=== PATIENT | female | born 1965 | race Caucasian/White ===

== ENCOUNTER 2021-11-24 10:13 | Inpatient (IN) | payer OTHER, SELFPAY ==
[2021-11-24] VITALS (8 sets, daily range): BP systolic 84–143; BP diastolic 62–94; PULSE 66–132; RESP 16–20; TEMP 36.2–36.9; O2SAT 90–100; BMI 38.3; BMI 41.3
--- NOTE | 2021-11-24 | ECG_ITS ---
Test Reason : tachycardia Blood Pressure : / mmHG Vent. Rate : 131 BPM Atrial Rate : 262 BPM P-R Int : 000 ms QRS Dur : 148 ms QT Int : 394 ms P-R-T Axes : 084 -18 -77 degrees QTc Int : 581 ms Atrial flutter with 2:1 A-V conduction Non-specific intra-ventricular conduction block Inferior infarct , age undetermined Abnormal ECG No previous ECGs available Referred By: Generic ED Physician Electronically Signed By:Jordan Orozco
--- NOTE | ~2021-11-24 | XR_ITS ---
EXAMINATION: XR CHEST CLINICAL INFORMATION: Palpitations. COMPARISON: None TECHNIQUE: Frontal view of the chest was obtained. FINDINGS: No significant abnormality is noted involving the heart, lungs, mediastinum, bony thorax or soft tissues. XR/XR chest 1V IMPRESSION: No acute cardiopulmonary process.
--- NOTE | 2021-11-24 10:43 | ED_ITS ---
HPI - Back Pain/Injury General Chief Complaint: Back Pain/Injury Stated Complaint: spine pain Time Seen by Provider: 11/24/21 10:40 Source: patient Mode of arrival: ambulatory Limitations: no limitations History of Present Illness MD elicited complaint: back pain Pertinent past history: prior back pain and back surgery Onset (ago): month(s) Timing: progressively worsening Severity: severe Similar Symptoms Previously: Yes Quality: aching Location: lumbar spine Radiation: right upper leg Exacerbating factors: movement and walking Relieving factors: immobilization and other (was on oxycodone 10mg TID for years missed appointment cut off from office at that point since July) Associated symptoms: other (denies any b/b incontinence, new injuries, trauma, falls, saddle anesthesia, was told 2 weeks ago by visiting RN she had irregular HR but never went to doctor) Treatments prior to arrival: other (takes non narcotic Rx from her doctor) Work related injury: No Related Data Allergies Allergy/AdvReac Type Severity Reaction Status Date / Time No Known Allergies Allergy Unverified 04/12/20 14:55 Review of Systems Review of Systems: Constitutional : No Weight loss, No Fever, No Chills, ENT/Mouth : No Hearing loss, No Ear Pain, No Nasal Congestion, No Sinus Pain, No Hoarseness, No sore throat, No Rhinorrhea, No Swallowing Difficulty Cardiovascular : No Chest Pain, No SOB, pos palpitations Respiratory : No Cough, No Dyspnea Gastrointestinal : No Nausea, No Vomiting, No Diarrhea, No abdominal Pain, No Hematochezia, No Melena Genitourinary : No Dysuria, No Urinary Frequency, No Hematuria, No Urinary Incontinence, Musculoskeletal : positive back pain Skin : No Skin Lesions, No rash Neuro : No Weakness, No Numbness, No Paresthesias, no loss of bowel or bladder incontinence, no saddle anesthesia All other systems reviewed and are negative [facility] Past Medical History Attestation statement: The following information was validated with the patient. Medical History (Updated 11/24/21 @ 13:05 by Delfina Handley DO) Arthritis COPD (chronic obstructive pulmonary disease) Disc disorder of cervical region Disc disorder of lumbar region DVT of axillary vein, acute Scoliosis Surgical History (Updated 11/24/21 @ 11:37 by Delfina Handley DO) Previous back surgery Social History Social History (Updated 11/24/21 @ 11:37 by Delfina Handley DO) Patient Tobacco Use Status: Former Tobacco user Advance Directives: Yes Advance Directives Information Provided: Yes Advance Directives on File: No Patient : No Physical Exam Vital Signs: Vital Signs: Last Vital Signs Temp 97.4 F 11/24/21 10:21 Pulse 97 11/24/21 11:42 Resp 18 11/24/21 11:42 BP 109/63 11/24/21 11:42 Pulse Ox 98 11/24/21 11:42 BMI result Body Mass Index 38.3 Appearance: Alert. Oriented X3. No acute distress. Eyes: Pupils equal, round and reactive to light. ENT: Pharynx normal. Neck: Normal inspection. Neck supple. CVS: tachycardic regular heart rate and rhythm. Pulses normal. Respiratory: No respiratory distress. Breath sounds decreased Abdomen: Soft and nontender. Back: ttp alonger lower lumbar area Skin: Skin warm and dry. Normal skin color. Normal skin turgor. Extremities: No lower extremity edema. No calf ttp hyperpigmentation of legs Neuro: Oriented X 3. No motor deficit. No sensory deficit. SILT inner thigh Course Course Course Narrative: repeat IV dilt dilt gtt ordered HR still 110-120s, back pain resolved with 1 PO morphine will admit for further rate control and workup of aflutter MDM - Back Pain/Injury MDM Narrative Medical decision making narrative: 55 yo female with hx of chronic back pain, DVT on coumadin, HLD, asthma comes in with c/o chronic low back pain which is not changed from her prior - no new injuries just had MRI on Weekend - worsening disc disease but no CE or cord compression. She has no b/b incontinence or saddle anesthesia. She will be treated with PO morphine. She also comes in with aflutter which she does not have a history of she is already on coumadin for DVT INR 1.9 doubt PE. She will need rate control at this time denies CP/SOB suspect she has been in it for weeks given reports of visiting RN telling her she had rapid HR and irregular pulse 2 weeks ago. Lab Data Result diagrams: 11/24/21 11:01 11/24/21 11:01 Labs: Lab Results 11/24/21 11/24/21 11/24/21 Range/Units 11:01 11:01 11:01 WBC 6.4 (4.8-10.8) X10*3/uL RBC 4.78 (4.20-5.50) X10*6/uL Hgb 14.3 (12.0-16.0) g/dl Hct 44.5 (37.0-47.0) % MCV 93.1 (80.0-98.0) fL MCH 29.9 (27.0-33.0) pg MCHC 32.1 (31.0-35.0) g/dl RDW 14.0 (11.0-16.0) % Plt Count 235 (160-400) X10*3/uL MPV 9.7 (9.4-12.3) fL Immature Gran % (Auto) 0.2 (0.0-0.4) % Neut % (Auto) 47.1 (45-73) % Lymph % (Auto) 40.3 H (20-40) % Amelia % (Auto) 6.8 (2-11) % Eos % (Auto) 5.0 H (0-4) % Baso % (Auto) 0.6 (0-2) % Lymph # (Auto) 2.6 (1.2-4.9) X10*3/uL Amelia # (Auto) 0.4 (0.1-1.2) X10*3/uL Eos # (Auto) 0.3 (0.0-0.4) X10*3/uL Baso # (Auto) 0.0 (0.0-0.2) X10*3/uL Abs Immat Gran (auto) 0.01 (0.00-0.03) X10*3/uL Absolute Neuts (auto) 3.0 (2.0-8.3) x10*3/uL Absolute Nucleated RBC 0.000 (0.0-0.012) X10*3/uL Nucleated RBC % (auto) 0.0 (0.0-0.2) /100WBC PT 21.9 H (9.9-13.0) SEC INR 1.9 H (0.9-1.1) APTT 46.3 H (24.1-38.0) SEC D-Dimer High Sensitivty 190 NG/ML Sodium 140 (135-145) mmol/L Potassium 4.5 (3.3-5.1) mmol/L Chloride 106 (96-108) mmol/L Carbon Dioxide 25 (22-29) mmol/L Anion Gap 14 (12-20) BUN 10 (9-16) mg/dL Creatinine 0.68 (0.5-1.4) mg/dL Estim Creat Clear Calc 102.8 Estimated GFR > 60 Random Glucose 82 (60-115) mg/dL Calcium 9.7 (8.4-10.2) mg/dL Magnesium 2.1 (1.6-2.6) mg/dL Total Bilirubin 0.6 (0.0-1.0) mg/dL Direct Bilirubin 0.3 (0.0-0.5) mg/dL AST 23 (5-31) U/L ALT 15 (0-31) U/L Alkaline Phosphatase 92 (39-117) U/L Total Creatine Kinase 74 (26-140) U/L Troponin I High Sens (<3.5-17.0) ng/L B-Natriuretic Peptide (<100) pg/mL Total Protein 7.8 (6.5-8.0) g/dL Albumin 4.0 (3.5-5.0) g/dL Lipase 50 (8-78) U/L TSH 0.77 (0.32-4.0) uIU/mL Ethyl Alcohol mg/dL COVID-19 (REMA) (Negative) COVID-19 Clin Com 11/24/21 11/24/21 11/24/21 Range/Units 11:01 11:01 11:01 WBC (4.8-10.8) X10*3/uL RBC (4.20-5.50) X10*6/uL Hgb (12.0-16.0) g/dl Hct (37.0-47.0) % MCV (80.0-98.0) fL MCH (27.0-33.0) pg MCHC (31.0-35.0) g/dl RDW (11.0-16.0) % Plt Count (160-400) X10*3/uL MPV (9.4-12.3) fL Immature Gran % (Auto) (0.0-0.4) % Neut % (Auto) (45-73) % Lymph % (Auto) (20-40) % Amelia % (Auto) (2-11) % Eos % (Auto) (0-4) % Baso % (Auto) (0-2) % Lymph # (Auto) (1.2-4.9) X10*3/uL Amelia # (Auto) (0.1-1.2) X10*3/uL Eos # (Auto) (0.0-0.4) X10*3/uL Baso # (Auto) (0.0-0.2) X10*3/uL Abs Immat Gran (auto) (0.00-0.03) X10*3/uL Absolute Neuts (auto) (2.0-8.3) x10*3/uL Absolute Nucleated RBC (0.0-0.012) X10*3/uL Nucleated RBC % (auto) (0.0-0.2) /100WBC PT (9.9-13.0) SEC INR (0.9-1.1) APTT (24.1-38.0) SEC D-Dimer High Sensitivty NG/ML Sodium (135-145) mmol/L Potassium (3.3-5.1) mmol/L Chloride (96-108) mmol/L Carbon Dioxide (22-29) mmol/L Anion Gap (12-20) BUN (9-16) mg/dL Creatinine (0.5-1.4) mg/dL Estim Creat Clear Calc Estimated GFR Random Glucose (60-115) mg/dL Calcium (8.4-10.2) mg/dL Magnesium (1.6-2.6) mg/dL Total Bilirubin (0.0-1.0) mg/dL Direct Bilirubin (0.0-0.5) mg/dL AST (5-31) U/L ALT (0-31) U/L Alkaline Phosphatase (39-117) U/L Total Creatine Kinase (26-140) U/L Troponin I High Sens 4.3 (<3.5-17.0) ng/L B-Natriuretic Peptide 252 H (<100) pg/mL Total Protein (6.5-8.0) g/dL Albumin (3.5-5.0) g/dL Lipase (8-78) U/L TSH (0.32-4.0) uIU/mL Ethyl Alcohol < 10 mg/dL COVID-19 (REMA) Negative (Negative) COVID-19 Clin Com See Note ECG Data Attestation: I personally reviewed and interpreted this ECG as follows: ECG interpretation date: 11/24/21 ECG interpretation time: 10:51 Interpretation: Rate: 130 Rhythm: flutter [place]: normal Normal QRS complex. ST T wave : nonspecific no CLAUDINE qTC: prolonged prior studies: none The study has been interpreted contemporaneously by me. Critical Care Time Critical Care Time Critical Care Time: Yes Total Critical Care Time: 35 Attestation: repeat IV bolus of diltiazem x 2, IV diltiazem drip for rate control, admission to hospital I attest to this time spent taking care of the patient Discharge Plan Discharge Clinical Impression: Atrial flutter, Chronic back pain Patient Disposition: Admitted As Inpatient
[2021-11-24] MEDS: dilTIAZem HCL 50 MG/10 ML VIAL 10 MG IVPUSH ×2 (11:04→11:17)
[2021-11-24 11:06] LABS: MANUAL DIFF FLAG NO
[2021-11-24 11:07] LABS: Basophils Percent Auto 0.6 % (0-2); Eosinophils Absolute Auto 0.3 X10*3/uL (0.0-0.4); Hematocrit 44.5 % (37.0-47.0); Hemoglobin 14.3 g/dl (12.0-16.0); Imm Gran Abs Auto 0.01 X10*3/uL (0.00-0.03); Imm Gran Pct Auto 0.2 % (0.0-0.4); Lymphocytes Absolute Auto 2.6 X10*3/uL (1.2-4.9); Lymphocytes Percent Auto 40.3 % (20-40); Mean Corpuscular HGB Conc 32.1 g/dl (31.0-35.0); Mean Corpuscular Hemoglobin 29.9 pg (27.0-33.0); Mean Corpuscular Volume 93.1 fL (80.0-98.0); Mean Platelet Volume 9.7 fL (9.4-12.3); Monocytes Absolute Auto 0.4 X10*3/uL (0.1-1.2); Monocytes Percent Auto 6.8 % (2-11); Neutrophils Percent Auto 47.1 % (45-73); Platelet Count 235 X10*3/uL (160-400); Red Blood Count 4.78 X10*6/uL (4.20-5.50); White Blood Count 6.4 X10*3/uL (4.8-10.8)
[2021-11-24] MEDS: Morphine Sulfate Immed Release 15 MG TABLET PO (11:16)
[2021-11-24 11:21] LABS: INTERNATIONAL NORM RATIO 1.9 (0.9-1.1); Prothrombin Time 21.9 SEC (9.9-13.0)
[2021-11-24 11:23] LABS: D Dimer High Sensitivity 190 NG/ML
[2021-11-24 11:24] LABS: Alanine Aminotransferase 15 U/L (0-31); Alkaline Phosphatase 92 U/L (39-117); Anion Gap 14 (12-20); Aspartate Amino Transferase 23 U/L (5-31); Bilirubin Direct 0.3 mg/dL (0.0-0.5); Bilirubin Total 0.6 mg/dL (0.0-1.0); Blood Urea Nitrogen 10 mg/dL (9-16); Calcium 9.7 mg/dL (8.4-10.2); Carbon Dioxide 25 mmol/L (22-29); Chloride 106 mmol/L (96-108); Creatinine Clr Calc Pharmacy 102.8; Estimated Glomerular Filt Rate > 60; Glucose Random 82 mg/dL (60-115); Lipase 50 U/L (8-78); Magnesium 2.1 mg/dL (1.6-2.6); Partial Thromboplastin Time 46.3 SEC (24.1-38.0); Potassium 4.5 mmol/L (3.3-5.1); Sodium 140 mmol/L (135-145); Total Protein 7.8 g/dL (6.5-8.0)
[2021-11-24 11:29] LABS: B Type Natriuretic Peptide 252 pg/mL (<100); Troponin-I High Sensitivity 4.3 ng/L (<3.5-17.0)
--- NOTE | 2021-11-24 11:42 | PC.NURSE ---
patient heart rate has decreased at this time, but noted to still be in a flutter rhythm. patient in no obvious distress at this time
[2021-11-24 11:44] LABS: TSH reflex Free T4 0.77 uIU/mL (0.32-4.0)
[2021-11-24 11:45] LABS: Ethanol < 10 mg/dL
[2021-11-24 11:47] LABS: COVID-19 Test Negative (Negative); IDNOW Serial# 16C4AD1C
[2021-11-24] MEDS: dilTIAZem HCL 125 MG in 0.9 % Sodium Chloride 100 ML 10 MG IVCONT (12:24)
--- NOTE | 2021-11-24 13:11 | P.HPHOSP_ITS ---
History of Present Illness Date of Service: 11/24/21 Chief Complaint: Palpitation 55 yo female with hx of chronic back pain, Diabetes, DVT on coumadin, HLD, asthma/COPD presents with palpitations, she relates that that she gets palpitations of and on and can last days of even weeks and she has not had any about 2 weeks or so. She had spontaneous onset of palpitations today that is constatn.. no associated chest pain, sob or dizzinesss. She is found to be in Aflutter with HR around 130 and is given cardizem IV. Of note she has her usual back rivera that is not any worse - no new injuries, she just had an MRI on and was noted for worsening disc disease but no cord compression or other acute chanages. She has no urinary or stool incontinence or saddle anesthesia. Got PO in ED with good relief. She is being admitted for management of AFIB with RVR. Review of Systems Review of Systems: Gen: no fever Resp: no sob, no cough CV: no chest, no HASTINGS, no leg edema GI: No n/v, no abd pain Neuro: No confusion Back pain: Chronic Yes all other systems are reviewed and are negative [facility] Medical History (Updated 11/24/21 @ 13:51 by Jeffery Bell MD) Arthritis COPD (chronic obstructive pulmonary disease) Diabetes Disc disorder of cervical region Disc disorder of lumbar region DVT of axillary vein, acute HLD (hyperlipidemia) HTN (hypertension) Scoliosis Family History (Updated 11/24/21 @ 13:33 by Jeffery Bell MD) Father Stroke Other Diabetes Surgical History Previous back surgery Social History Household Members: Children Household Members Other:: daughter Housing: Condominium Do you presently have visiting nurse or other home services: Yes ([employer] services) Patient Tobacco Use Status: Current everyday Tobacco user Tobacco use type: Cigarette Cigarette Packs Per Day: 1 Cigarettes Per Day: 20.0 Use of substances other than those prescribed or required for medical reasons: No Currently Displaying Signs/Symptoms of Drug Intoxication Withdrawal: No Do you feel safe in your current relationship?: No Current Relationship Advance Directives: Yes Advance Directives Information Provided: Yes Advance Directives on File: No Advance Directives Date on File: 11/24/21 Do you have thoughts of harming others: None Do you have a plan to hurt others: No Plan Recently lost weight without trying: Yes How much weight loss: 34pounds or more Eating poorly because of decreased appetite: No Nutrition screen score: 6 Nutrition Risks: No Nutritional Risk Patient : No : No Poor oral hygiene: Yes Meds Allergies Allergy/AdvReac Type Severity Reaction Status Date / Time No Known Allergies Allergy Unverified 04/12/20 14:55 Active Medications: Current Medications Diltiazem HCl 125 mg/ Sodium (Chloride) 125 mls @ 0 mls/hr IVCONT .Q0M MONSERRAT; Protocol Last Admin: 11/24/21 12:24 Dose: 10 mg/hr, 10 mls/hr Documented by: Pharmacy Consult (Consult Rx Perform Med Rec) 1 each MISCELLANE ONCE PRN PRN Reason: Consult order Home Medications Medication Instructions Recorded Confirmed Last Taken Type albuterol sulfate 90 mcg/actuation 2 puff INHALATION Q4-6H PRN 11/24/21 11/24/21 Unknown History aerosol inhaler colchicine 0.6 mg tablet 0.6 mg PO DAILY 11/24/21 11/24/21 Unknown History cyclobenzaprine 10 mg tablet 10 mg PO TID PRN 11/24/21 11/24/21 Unknown History duloxetine 40 mg capsule,delayed 40 mg PO DAILY 11/24/21 11/24/21 11/24/21 History release sprinkle duloxetine 60 mg capsule,delayed 60 mg PO DAILY 11/24/21 11/24/21 11/24/21 History release gabapentin 300 mg capsule 300 mg PO TID 11/24/21 11/24/21 11/24/21 History lamotrigine 100 mg tablet 250 mg PO BEDTIME 11/24/21 11/24/21 11/23/21 History loratadine 10 mg tablet 10 mg PO DAILY 11/24/21 11/24/21 Unknown History metformin 500 mg tablet 1,000 mg PO BID 11/24/21 11/24/21 Unknown History methenamine hippurate 1 gram tablet 1 g PO BID 11/24/21 11/24/21 11/24/21 History nitrofurantoin 1 cap PO BID 11/24/21 11/24/21 11/24/21 History monohydrate/macrocrystals 100 mg capsule penicillin V potassium 250 mg 250 mg PO BID 11/24/21 11/24/21 11/24/21 History tablet propranolol 20 mg tablet 20 mg PO BID 11/24/21 11/24/21 Unknown History ropinirole 0.5 mg tablet 0.5 mg PO BID 11/24/21 11/24/21 11/24/21 History rosuvastatin 10 mg tablet 10 mg PO DAILY 11/24/21 11/24/21 Unknown History warfarin 5 mg tablet 5 mg PO DAILY 11/24/21 11/24/21 Unknown History Physical Exam Vital Signs and Narrative: Vital Signs: Last Vital Signs Temp 97.4 F 11/24/21 10:21 Pulse 97 11/24/21 11:42 Resp 18 11/24/21 11:42 BP 109/63 11/24/21 11:42 Pulse Ox 98 11/24/21 11:42 BMI result Body Mass Index 38.3 Const: Other: Constitutional: Alert, in no distress, overweight. Mental Status: Oriented to person, place and time. Eyes: Pupils are equal, round and reactive to light. Ear, Nose and Throat: Oropharynx clear, mucous membranes moist. Ears and nose without eformities. Trachea midline. Respiratory: Clear to auscultation. No wheezing, rales or rhonchi. Cardiovascular: S1 S2 iregular irregular. No murmurs, rubs or gallops. rythm strip c/w Afluter Gastrointestinal: Abdomen soft, non-tender, non-distended. Normal bowel sounds.? Neurologic: Cranial nerves II-XII grossly intact. No focal neurological deficits. Moves all extremities spontaneously.? No numbness Skin: No rashes or lesions.?bilateral chronic stais dermatitis of both legs Musculoskeletal: No cyanosis or clubbing. Psychiatric: Normal mood and affect? Results Labs CBC and Chem 7: 11/24/21 11:01 11/24/21 11:01 Imaging Radiologist's Impressions: Impressions Chest X-Ray 11/24/21 11:35 IMPRESSION: No acute cardiopulmonary process. Assessment and Plan (1) Atrial flutter: Status: Acute (2) HTN (hypertension): Status: Acute (3) HLD (hyperlipidemia): Status: Acute (4) Diabetes: Status: Acute Plan 55 yo female with hx of chronic back pain, DVT on coumadin, HLD, asthma here with Aflutter with RVR, presumed new AFlutter with RVR--Start cardiazem IV, add oral metorprolol 25 Q6 as well. She is already anticoagulated with coumadin. Get echo in the morning and get advise from cardiology Chronic Back pain--Oxycodone PRN HLD--statin HTN--Metoprolol Diabetes--Metformin and SSI, diabetic diet DVT prophylaxis--coumadin Quality Stroke Does the patient have a stroke diagnosis?: No VTE Prior VTE?: Yes VTE Risk Level:: Medical - moderate - high VTE Device Contraindication: Treatment Not Indicated VTE Drug Contraindication: N/A - Med Ordered
[2021-11-24] MEDS: Lidocaine 4 % Patch ADH..PATCH 1 PATCH TRANSDERMA (13:43)
[2021-11-24] MEDS: diazePAM 2 MG TABLET 5 MG PO (13:43)
--- NOTE | 2021-11-24 14:31 | PC.NURSE ---
Addendum entered by Christal Adam 11/24/21 22:56: Pt HR running low's 80, high 60's Dr. Orosco made aware, Dr. Orosco order to titrate down Cardizem drip and if HR remains stable to stop drip Addendum entered by Christal Adam 11/24/21 14:59: pt is alert and oriented. on continuos cardiac monitoring. pt stated that she continuos to have back pain, repositioned in bed for better comfort. pt HR fluctuating, from 100-130's, provider made aware. pt currently running diltiazem drip at 12.5mg/hr Original Note: report received from [facility]
--- NOTE | 2021-11-24 14:45 | PHA.MEDREC ---
MED REC COMPLETE, NO ISSUES Pharmacy Consult ? Medication Reconciliation Pharmacy has completed the medication reconciliation.
[2021-11-24 17:06] LABS: Glucose, Whole Blood 130 mg/dL (60-115)
--- NOTE | 2021-11-24 18:14 | PC.NURSE ---
patient assisted to bathroom at this time. patient requesting to have IV in left AC pulled due to discomfort. IV discontinued, and patient had significant amount of bleeding from site. pressure applied and bleeding controlled after several mins. patient's linens and gown changed at this time. no apparent distress, denies any further needs
[2021-11-24] MEDS: Metoprolol Tartrate 25 MG TABLET PO ×2 (18:57→21:16)
[2021-11-24] MEDS: Gabapentin 300 MG CAPSULE PO (21:15)
[2021-11-24] MEDS: Penicillin V Potassium 250 MG TABLET PO (21:15)
[2021-11-24] MEDS: metFORMIN HCl 1,000 MG TABLET 1000 MG PO (21:15)
[2021-11-24] MEDS: Nitrofurantoin Monohyd/M-Cryst 100 MG CAPSULE PO (21:15)
[2021-11-24] MEDS: rOPINIRole HCL 0.5 MG TABLET PO (21:15)
[2021-11-24] MEDS: Atorvastatin Calcium 10 MG TABLET PO (21:15)
[2021-11-24] MEDS: oxyCODONE HCl Immed Release 5 MG TABLET PO (21:16)
[2021-11-24] MEDS: lamoTRIgine 25 MG TABLET 250 MG PO (22:43)
[2021-11-24] MEDS: 0.9 % Sodium Chloride Flush 3 ML SYRINGE IVFLUSH (23:26)
[2021-11-25] VITALS (11 sets, daily range): BP systolic 110–137; BP diastolic 62–93; PULSE 71–105; RESP 16–20; TEMP 36.1–36.7; O2SAT 89–95
[2021-11-25] MEDS: dilTIAZem HCL 125 MG in 0.9 % Sodium Chloride 100 ML 10 MG IVCONT (00:07)
--- NOTE | 2021-11-25 00:09 | PC.NURSE ---
Cardizem drip paused at 23:24 patient HR was in the 60s and bp 84/62. Drip was running at 11mg/hr while in ED overflow. Overnight hospitalist notified. Cardizem restarted at 10ml/hr at 00:07am, patient at 120-130s at rest. BP came up to 116/67.
[2021-11-25] MEDS: oxyCODONE HCl Immed Release 5 MG TABLET PO ×3 (04:23→21:14)
[2021-11-25 07:03] LABS: INTERNATIONAL NORM RATIO 1.9 (0.9-1.1); Prothrombin Time 22.1 SEC (9.9-13.0)
[2021-11-25 07:51] LABS: Glucose, Whole Blood 90 mg/dL (60-115)
[2021-11-25] MEDS: Colchicine 0.6 MG TABLET PO (08:13)
[2021-11-25] MEDS: Gabapentin 300 MG CAPSULE PO ×3 (08:13→21:13)
[2021-11-25] MEDS: DULoxetine HCl 20 MG CAPSULE.DR 40 MG PO (08:13)
[2021-11-25] MEDS: Penicillin V Potassium 250 MG TABLET PO ×2 (08:13→21:14)
[2021-11-25] MEDS: metFORMIN HCl 1,000 MG TABLET 1000 MG PO ×2 (08:13→21:13)
[2021-11-25] MEDS: DULoxetine HCl 60 MG CAPSULE.DR PO (08:13)
[2021-11-25] MEDS: rOPINIRole HCL 0.5 MG TABLET PO ×2 (08:13→21:14)
[2021-11-25] MEDS: 0.9 % Sodium Chloride Flush 3 ML SYRINGE IVFLUSH ×3 (08:13→21:16)
[2021-11-25] MEDS: Nitrofurantoin Monohyd/M-Cryst 100 MG CAPSULE PO ×2 (08:14→21:13)
[2021-11-25] MEDS: Loratadine 10 MG TABLET PO (08:14)
[2021-11-25] MEDS: Metoprolol Tartrate 25 MG TABLET PO ×4 (08:14→21:15)
[2021-11-25] MEDS: Acetaminophen 325 MG TABLET 650 MG PO (08:22)
[2021-11-25] MEDS: Cyclobenzaprine HCl 10 MG TABLET PO (08:22)
--- NOTE | 2021-11-25 10:24 | P.PNIM_ITS ---
Subjective Subjective Date of Service: 11/25/21 Interval History: Seen in follow-up for atrial flutter with RVR. Interval history; patient's heart rate remained high with IV Cardizem still going and been uptitrated Review of Systems No palpitation, no shortness of breath, no chest pain. Physical Exam Vital Signs: Vital Signs: Last Vital Signs Temp 97.7 F 11/25/21 07:05 Pulse 78 11/25/21 09:37 Resp 20 11/25/21 07:05 BP 125/80 11/25/21 07:05 Pulse Ox 91 L 11/25/21 07:05 BMI result Body Mass Index 41.3 Const: Other: General: AO X 3, no acute distress Resp: CTA bilateral CVS: S1,S2, irregularly irregular GI: +BS, NT, no distention Skin: No rash Neuro: motor grossly intact Psych: appropriate affect Objective Data Active Medications Acetaminophen (Acetaminophen 325 Mg Tablet) 650 mg PO Q6H PRN PRN Reason: Pain, Mild (Pain Scale 1-3) Last Admin: 11/25/21 08:22 Dose: 650 mg Documented by: CLAUDIO Albuterol Sulfate (Albuterol Sulfate 90 Mcg 8 Gm Inhaler) 2 puff INHALE Q4H PRN PRN Reason: Respiratory Distress Atorvastatin Calcium (Atorvastatin Calcium 10 Mg Tablet) 10 mg PO BEDTIME [facility] Last Admin: 11/24/21 21:15 Dose: 10 mg Documented by: CARMELA-BONYICL Colchicine (Colchicine 0.6 Mg Tablet) 0.6 mg PO DAILY [facility] Last Admin: 11/25/21 08:13 Dose: 0.6 mg Documented by: CLAUDIO Cyclobenzaprine HCl (Cyclobenzaprine Hcl 10 Mg Tablet) 10 mg PO TID PRN PRN Reason: Muscle Spasm Last Admin: 11/25/21 08:22 Dose: 10 mg Documented by: CLAUDIO Duloxetine HCl (Duloxetine Hcl 60 Mg Capsule.) 60 mg PO DAILY [facility] Last Admin: 11/25/21 08:13 Dose: 60 mg Documented by: CLAUDIO Duloxetine HCl (Duloxetine Hcl 20 Mg Capsule.) 40 mg PO DAILY [facility] Last Admin: 11/25/21 08:13 Dose: 40 mg Documented by: CLAUDIO Gabapentin (Gabapentin 300 Mg Capsule) 300 mg PO TID [facility] Last Admin: 11/25/21 08:13 Dose: 300 mg Documented by: CLAUDIO Diltiazem HCl 125 mg/ Sodium (Chloride) 125 mls @ 0 mls/hr IVCONT .Q0M [facility]; Protocol Last Titration: 11/25/21 09:37 Dose: 0 mg/hr, 0 mls/hr Documented by: CLAUDIO Insulin Human Lispro (Insulin Lispro 100 Unit/Ml 3 Ml Vial) 0 unit SUBCUT QIDACHS [facility]; Protocol Last Admin: 11/25/21 08:12 Dose: Not Given Documented by: CLAUDIO Non-Admin Reason: No Insulin Coverage Lamotrigine (Lamotrigine 25 Mg Tablet) 250 mg PO BEDTIME [facility] Last Admin: 11/24/21 22:43 Dose: 250 mg Documented by: CARMELA-ANICL Loratadine (Loratadine 10 Mg Tablet) 10 mg PO DAILY [facility] Last Admin: 11/25/21 08:14 Dose: 10 mg Documented by: CLAUDIO Metformin HCl (Metformin Hcl 1,000 Mg Tablet) 1,000 mg PO BID [facility] Last Admin: 11/25/21 08:13 Dose: 1,000 mg Documented by: CLAUDIO Metoprolol Tartrate (Metoprolol Tartrate 25 Mg Tablet) 25 mg PO QID [facility]; P rotocol Last Admin: 11/25/21 08:14 Dose: 25 mg Documented by: CLAUDIO Nitrofurantoin Macrocrystals (Nitrofurantoin Monohyd/M-Cryst 100 Mg Capsule) 100 mg PO BID [facility] Last Admin: 11/25/21 08:14 Dose: 100 mg Documented by: CLAUDIO Non-Formulary Medication (Methenamine Hippurate) 1 gm PO BID [facility] Oxycodone HCl (Oxycodone Hcl Immed Release 5 Mg Tablet) 5 mg PO Q6H PRN PRN Reason: Pain, Severe (Pain Scale 7-10) Last Admin: 11/25/21 04:23 Dose: 5 mg Documented by: JACQUI Penicillin V Potassium (Penicillin V Potassium 250 Mg Tablet) 250 mg PO BID [facility] Last Admin: 11/25/21 08:13 Dose: 250 mg Documented by: CLAUDIO Pharmacy Consult (Consult Rx Perform Med Rec) 1 each MISCELLANE ONCE PRN PRN Reason: Consult order Ropinirole HCl (Ropinirole Hcl 0.5 Mg Tablet) 0.5 mg PO BID [facility] Last Admin: 11/25/21 08:13 Dose: 0.5 mg Documented by: CLAUDIO Sodium Chloride (0.9 % Sodium Chloride Flush 3 Ml Syringe) 3 ml IVFLUSH QSHIFT [facility] Last Admin: 11/25/21 08:13 Dose: 3 ml Documented by: CLAUDIO Warfarin Sodium (Warfarin Sodium 5 Mg Tablet) 5 mg PO DAILY@1800 [facility] Labs CBC & Chem 7: 11/24/21 11:01 11/24/21 11:01 Labs: Laboratory Results - last 24 hr 11/24/21 11/24/21 11/24/21 11:01 11:01 11:01 MCV 93.1 MCH 29.9 MCHC 32.1 RDW 14.0 Plt Count 235 MPV 9.7 Immature Gran % (Auto) 0.2 Neut % (Auto) 47.1 Lymph % (Auto) 40.3 H Turner % (Auto) 6.8 Eos % (Auto) 5.0 H Baso % (Auto) 0.6 Lymph # (Auto) 2.6 Turner # (Auto) 0.4 Eos # (Auto) 0.3 Baso # (Auto) 0.0 Abs Immat Gran (auto) 0.01 Absolute Neuts (auto) 3.0 Absolute Nucleated RBC 0.000 Nucleated RBC % (auto) 0.0 PT 21.9 H INR 1.9 H APTT 46.3 H D-Dimer High Sensitivty 190 Anion Gap 14 Estim Creat Clear Calc 102.8 Estimated GFR > 60 POC Glucose Random Glucose 82 Calcium 9.7 Magnesium 2.1 Total Bilirubin 0.6 Direct Bilirubin 0.3 AST 23 ALT 15 Alkaline Phosphatase 92 Total Creatine Kinase 74 Troponin I High Sens B-Natriuretic Peptide Total Protein 7.8 Albumin 4.0 Lipase 50 TSH 0.77 Ethyl Alcohol COVID-19 (REMA) COVID-19 Clin Com 11/24/21 11/24/21 11/24/21 11:01 11:01 11:01 MCV MCH MCHC RDW Plt Count MPV Immature Gran % (Auto) Neut % (Auto) Lymph % (Auto) Turner % (Auto) Eos % (Auto) Baso % (Auto) Lymph # (Auto) Turner # (Auto) Eos # (Auto) Baso # (Auto) Abs Immat Gran (auto) Absolute Neuts (auto) Absolute Nucleated RBC Nucleated RBC % (auto) PT INR APTT D-Dimer High Sensitivty Anion Gap Estim Creat Clear Calc Estimated GFR POC Glucose Random Glucose Calcium Magnesium Total Bilirubin Direct Bilirubin AST ALT Alkaline Phosphatase Total Creatine Kinase Troponin I High Sens 4.3 B-Natriuretic Peptide 252 H Total Protein Albumin Lipase TSH Ethyl Alcohol < 10 COVID-19 (REMA) Negative COVID-19 Clin Com See Note 11/24/21 11/25/21 11/25/21 17:02 06:09 07:48 MCV MCH MCHC RDW Plt Count MPV Immature Gran % (Auto) Neut % (Auto) Lymph % (Auto) Turner % (Auto) Eos % (Auto) Baso % (Auto) Lymph # (Auto) Turner # (Auto) Eos # (Auto) Baso # (Auto) Abs Immat Gran (auto) Absolute Neuts (auto) Absolute Nucleated RBC Nucleated RBC % (auto) PT 22.1 H INR 1.9 H APTT D-Dimer High Sensitivty Anion Gap Estim Creat Clear Calc Estimated GFR POC Glucose 130 H 90 Random Glucose Calcium Magnesium Total Bilirubin Direct Bilirubin AST ALT Alkaline Phosphatase Total Creatine Kinase Troponin I High Sens B-Natriuretic Peptide Total Protein Albumin Lipase TSH Ethyl Alcohol COVID-19 (REMA) COVID-19 Clin Com Assessment and Plan (1) Diabetes: Status: Acute (2) HLD (hyperlipidemia): Status: Acute (3) HTN (hypertension): Status: Acute (4) Atrial flutter: Status: Acute (5) Chronic back pain: Status: Acute Plan 55 yo female with hx of chronic back pain, DVT on coumadin, HLD, asthma? here with Aflutter with RVR, presumed new AFlutter with RVR--heart rate remains high, continue IV Cardizem, continue metoprolol. Already on Coumadin for anticoagulation. Echocardiogram today. Cardiology to advise on further management. Give her regular diet give her regular diet given her regular diet Chronic Back pain--Oxycodone PRN HLD--statin HTN--Metoprolol Diabetes--Metformin and SSI, diabetic diet DVT prophylaxis--coumadin Need for inpatient: Management of atrial fibrillation with IV medications and further cardiac testing Quality Stroke Does the patient have a stroke diagnosis?: No VTE Prior VTE?: Yes VTE Risk Level:: Medical - moderate - high VTE Device Contraindication: Treatment Not Indicated VTE Drug Contraindication: N/A - Med Ordered
[2021-11-25 11:08] LABS: Glucose, Whole Blood 95 mg/dL (60-115)
--- NOTE | 2021-11-25 11:12 | MHC.CM.PN ---
MET WITH PT WHO HAS [facility] [employer]RU [employer] WHO DOES HER INRS AND LOCK BOX SHE IS VAX X 3 AND HAS OWN TRANSPORT HOME
--- NOTE | 2021-11-25 11:43 | MHC.CLN ---
RE: CONSULT 30# WT LOSS PT REPORTS SHE LOST 72# SINCE FEBRUARY 2021 PT REPORTED SHE GAVE UP SODA SHE NEEDED TO LOSE WT FOR UPCOMING SURGERY PLANNED DECEMBER 2021 AND INCREASED EXERCISE WT LOSS WAS INTENTIONAL AND DESIRED WITH NO SIGNIFICANT WT LOSS AT THIS TIME PT NOTED ALSO HAS GASTRIC BAND SINCE 2004 WHICH REQUIRES SMALL PORTIONS WITH MEALS
[2021-11-25 14:09] LABS: Glucose, Whole Blood 102 mg/dL (60-115)
--- NOTE | 2021-11-25 14:15 | PM.CNCAR ---
History of Present Illness History of Present Illness Date of Service: 11/25/21 Chief complaint: Aflutter with RVR Narrative: 55-year-old female who is presenting with upper back and neck pain. She was noted to have atrial flutter with heart rate of 131 beats per minute. She is denying any palpitations or symptoms. She was started on Cardizem with improvement in heart rate. At the time of interview the Cardizem was off and heart rate was in 90s. Overall denying any symptoms and wants to go home. She is a chronic smoker and has dyspnea at baseline due to underlying lung disease. She also has background of hypertension and diabetes. She has been on Coumadin therapy for previous DVT. [facility] Past Medical History Medical History (Updated 11/24/21 @ 13:51 by Jeffery Bell MD) Arthritis COPD (chronic obstructive pulmonary disease) Diabetes Disc disorder of cervical region Disc disorder of lumbar region DVT of axillary vein, acute HLD (hyperlipidemia) HTN (hypertension) Scoliosis Family History Family History (Updated 11/24/21 @ 13:33 by Jeffery Bell MD) Father Stroke Other Diabetes Surgical History Surgical History Previous back surgery Social History Social History Household Members: Children Household Members Other:: daughter Housing: Condominium Do you presently have visiting nurse or other home services: Yes ([employer]) Patient Tobacco Use Status: Current everyday Tobacco user Tobacco use type: Cigarette Cigarette Packs Per Day: 1 Cigarettes Per Day: 20.0 Use of substances other than those prescribed or required for medical reasons: No Currently Displaying Signs/Symptoms of Drug Intoxication Withdrawal: No Do you feel safe in your current relationship?: No Current Relationship Advance Directives: Yes Advance Directives Information Provided: Yes Advance Directives on File: No Advance Directives Date on File: 11/24/21 Do you have thoughts of harming others: None Do you have a plan to hurt others: No Plan Recently lost weight without trying: Yes How much weight loss: 34pounds or more Eating poorly because of decreased appetite: No Nutrition screen score: 6 Nutrition Risks: No Nutritional Risk Patient : No : No Poor oral hygiene: Yes service: No Meds Allergies Allergy/AdvReac Type Severity Reaction Status Date / Time No Known Allergies Allergy Unverified 04/12/20 14:55 Active Medications: Current Medications Acetaminophen (Acetaminophen 325 Mg Tablet) 650 mg PO Q6H PRN PRN Reason: Pain, Mild (Pain Scale 1-3) Last Admin: 11/25/21 08:22 Dose: 650 mg Documented by: Albuterol Sulfate (Albuterol Sulfate 90 Mcg 8 Gm Inhaler) 2 puff INHALE Q4H PRN PRN Reason: Respiratory Distress Atorvastatin Calcium (Atorvastatin Calcium 10 Mg Tablet) 10 mg PO BEDTIME [facility] Last Admin: 11/24/21 21:15 Dose: 10 mg Documented by: Colchicine (Colchicine 0.6 Mg Tablet) 0.6 mg PO DAILY [facility] Last Admin: 11/25/21 08:13 Dose: 0.6 mg Documented by: Cyclobenzaprine HCl (Cyclobenzaprine Hcl 10 Mg Tablet) 10 mg PO TID PRN PRN Reason: Muscle Spasm Last Admin: 11/25/21 08:22 Dose: 10 mg Documented by: Duloxetine HCl (Duloxetine Hcl 60 Mg Capsule.Dr) 60 mg PO DAILY [facility] Last Admin: 11/25/21 08:13 Dose: 60 mg Documented by: Duloxetine HCl (Duloxetine Hcl 20 Mg Capsule.Dr) 40 mg PO DAILY [facility] Last Admin: 11/25/21 08:13 Dose: 40 mg Documented by: Gabapentin (Gabapentin 300 Mg Capsule) 300 mg PO TID [facility] Last Admin: 11/25/21 08:13 Dose: 300 mg Documented by: Diltiazem HCl 125 mg/ Sodium (Chloride) 125 mls @ 0 mls/hr IVCONT .Q0M [facility]; Protocol Last Titration: 11/25/21 09:37 Dose: 0 mg/hr, 0 mls/hr Documented by: Insulin Human Lispro (Insulin Lispro 100 Unit/Ml 3 Ml Vial) 0 unit SUBCUT QIDACHS [facility]; Protocol Last Admin: 11/25/21 10:56 Dose: Not Given Documented by: Lamotrigine (Lamotrigine 25 Mg Tablet) 250 mg PO BEDTIME [facility] Last Admin: 11/24/21 22:43 Dose: 250 mg Documented by: Loratadine (Loratadine 10 Mg Tablet) 10 mg PO DAILY [facility] Last Admin: 11/25/21 08:14 Dose: 10 mg Documented by: Metformin HCl (Metformin Hcl 1,000 Mg Tablet) 1,000 mg PO BID [facility] Last Admin: 11/25/21 08:13 Dose: 1,000 mg Documented by: Metoprolol Tartrate (Metoprolol Tartrate 25 Mg Tablet) 25 mg PO QID [facility]; Protocol Last Admin: 11/25/21 13:07 Dose: 25 mg Documented by: Nitrofurantoin Macrocrystals (Nitrofurantoin Monohyd/M-Cryst 100 Mg Capsule) 100 mg PO BID [facility] Last Admin: 11/25/21 08:14 Dose: 100 mg Documented by: Non-Formulary Medication (Methenamine Hippurate) 1 gm PO BID [facility] Oxycodone HCl (Oxycodone Hcl Immed Release 5 Mg Tablet) 5 mg PO Q6H PRN PRN Reason: Pain, Severe (Pain Scale 7-10) Last Admin: 11/25/21 10:52 Dose: 5 mg Documented by: Penicillin V Potassium (Penicillin V Potassium 250 Mg Tablet) 250 mg PO BID [facility] Last Admin: 11/25/21 08:13 Dose: 250 mg Documented by: Pharmacy Consult (Consult Rx Perform Med Rec) 1 each MISCELLANE ONCE PRN PRN Reason: Consult order Ropinirole HCl (Ropinirole Hcl 0.5 Mg Tablet) 0.5 mg PO BID [facility] Last Admin: 11/25/21 08:13 Dose: 0.5 mg Documented by: Sodium Chloride (0.9 % Sodium Chloride Flush 3 Ml Syringe) 3 ml IVFLUSH QSHIFT [facility] Last Admin: 11/25/21 08:13 Dose: 3 ml Documented by: Warfarin Sodium (Warfarin Sodium 5 Mg Tablet) 5 mg PO DAILY@1800 [facility] Home Medications Medication Instructions Recorded Confirmed Last Taken Type albuterol sulfate 90 mcg/actuation 2 puff INHALATION Q4-6H PRN 11/24/21 11/24/21 Unknown History aerosol inhaler colchicine 0.6 mg tablet 0.6 mg PO DAILY 11/24/21 11/24/21 Unknown History cyclobenzaprine 10 mg tablet 10 mg PO TID PRN 11/24/21 11/24/21 Unknown History duloxetine 40 mg capsule,delayed 40 mg PO DAILY 11/24/21 11/24/21 11/24/21 History release sprinkle duloxetine 60 mg capsule,delayed 60 mg PO DAILY 11/24/21 11/24/21 11/24/21 History release gabapentin 300 mg capsule 300 mg PO TID 11/24/21 11/24/21 11/24/21 History lamotrigine 100 mg tablet 250 mg PO BEDTIME 11/24/21 11/24/21 11/23/21 History loratadine 10 mg tablet 10 mg PO DAILY 11/24/21 11/24/21 Unknown History metformin 500 mg tablet 1,000 mg PO BID 11/24/21 11/24/21 Unknown History methenamine hippurate 1 gram tablet 1 g PO BID 11/24/21 11/24/21 11/24/21 History nitrofurantoin 1 cap PO BID 11/24/21 11/24/21 11/24/21 History monohydrate/macrocrystals 100 mg capsule penicillin V potassium 250 mg 250 mg PO BID 11/24/21 11/24/21 11/24/21 History tablet propranolol 20 mg tablet 20 mg PO BID 11/24/21 11/24/21 Unknown History ropinirole 0.5 mg tablet 0.5 mg PO BID 11/24/21 11/24/21 11/24/21 History rosuvastatin 10 mg tablet 10 mg PO DAILY 11/24/21 11/24/21 Unknown History warfarin 5 mg tablet 5 mg PO DAILY 11/24/21 11/24/21 Unknown History Physical Exam Vital Signs: Vital Signs: Last Vital Signs Temp 98.1 F 11/25/21 10:59 Pulse 85 11/25/21 13:07 Resp 20 11/25/21 10:59 BP 118/85 11/25/21 13:07 Pulse Ox 95 11/25/21 10:59 BMI result Body Mass Index 41.3 GENERAL APPEARANCE: in no acute distress, pleasant. NECK: no carotid bruit, no jugular venous distention. SKIN: no suspicious lesions, warm and dry. HEART: no murmurs, regular rate and rhythm. LUNGS: clear to auscultation bilaterally. ABDOMEN: soft, nontender. EXTREMITIES: no edema. PERIPHERAL PULSES: equal. NEUROLOGIC: No gross deficits, AAO X 3 Objective Labs and Meds Result diagrams: 11/24/21 11:01 11/24/21 11:01 Lab results: Laboratory Results - last 24 hr 11/24/21 11/24/21 11/25/21 17:02 21:27 06:09 PT 22.1 H INR 1.9 H POC Glucose 130 H 102 11/25/21 11/25/21 07:48 10:55 PT INR POC Glucose 90 95 Assessment and Plan (1) Atrial flutter: Status: Acute Plan Pleasant 55-year-old female who has background of hypertension, hyperlipidemia, diabetes and DVT on Coumadin was presenting for upper back and neck pain which is chronic and was noted to be in atrial flutter. EKGs showing typical atrial flutter. She was started on Cardizem drip which improved her heart rate significantly. She is currently off the Cardizem. She is on metoprolol 25 mg 4 times a day. At home she was taking propanolol 20 mg twice a day. I think she can be changed to Toprol-XL 100 mg once a day. Stop the Cardizem for now. We will check echocardiogram to assess LV for any structural issues particularly cardiomyopathy because she did not have any palpitations from atrial flutter and is difficult to know how long she has been in atrial flutter. In these scenarios because the patient's stay in tachycardia for long time they can develop tachycardia induced cardiomyopathy. If in fact her left ventricular ejection fraction is low then I will consider cardioversion. Continue the Coumadin as before. Given her INR being 1.9 in case she requires cardioversion then that will be a DANIELLE cardioversion. Thank you for allowing me to participate in the care of your patient. Please feel free to contact me if you have any questions. Procedures Date of Service Date of Service: 11/25/21
[2021-11-25 16:13] LABS: Glucose, Whole Blood 120 mg/dL (60-115)
[2021-11-25] MEDS: Warfarin Sodium 5 MG TABLET PO (17:42)
[2021-11-25 20:38] LABS: Glucose, Whole Blood 110 mg/dL (60-115)
[2021-11-25] MEDS: lamoTRIgine 25 MG TABLET 250 MG PO (21:12)
[2021-11-25] MEDS: Atorvastatin Calcium 10 MG TABLET PO (21:14)
[2021-11-26 03:42] VITALS: BP 136/97; PULSE 110; RESP 19; TEMP 36.3; O2SAT 92
[2021-11-26] MEDS: oxyCODONE HCl Immed Release 5 MG TABLET PO ×3 (03:44→18:54)
[2021-11-26 06:51] LABS: INTERNATIONAL NORM RATIO 1.6 (0.9-1.1); Prothrombin Time 18.8 SEC (9.9-13.0)
--- NOTE | 2021-11-26 07:00 | CA_ITS ---
Transthoracic Echocardiogram Patient (Last, First, Middle): Shruthi Orosco, Gender: Female Date of : 1965 Age: 55 Procedure Date: 11/26/2021 Procedure Type: Transthoracic Echocardiogram Location: [facility] [place] Height: 160.02 cm Weight: 107.05 kg BSA: 2.07 m2 Heart Rate: bpm BP: 110 / 62 mmHg Laboratory Technology Teacher: Referring MD: Jeffery Bell MD Symptoms: new afib Study Quality: Fair ECG Rhythm: Atrial flutter Conclusions: - Normal left ventricular cavity size. There is mildly increased left ventricular wall thickness. The left ventricular systolic function is low normal. The visually estimated ejection fraction is between 50-55%. - The basal inferior segment is akinetic. - Normal right ventricular cavity size. There is borderline right ventricular systolic function. - There is mild to moderate mitral valve regurgitation. - Significantly elevated right atrial pressure. Mild pulmonary hypertension is present. Findings Left Ventricle Normal left ventricular cavity size. There is mildly increased left ventricular wall thickness. The left ventricular systolic function is low normal. The visually estimated ejection fraction is between 50-55%. There is evidence of regional wall motion abnormalities. Diastolic function is indeterminate on the basis of available data. Wall Motion Rest Echo Findings The basal inferior segment is akinetic. Right Ventricle Normal right ventricular cavity size. There is borderline right ventricular systolic function. Atria The left atrium is moderately dilated. Aortic Valve There is a normal trileaflet aortic valve. There is no aortic valve stenosis. There is trace (trivial) aortic valve regurgitation. Mitral Valve The mitral valve appears normal. There is mild to moderate mitral valve regurgitation. There is no mitral valve stenosis. Pulmonic Valve The pulmonic valve is likely normal. Tricuspid Valve Normal tricuspid valve structure. There is mild to moderate tricuspid valve regurgitation. Significantly elevated right atrial pressure. Mild pulmonary hypertension is present. Great Vessels All visible segments of the aorta are normal in size. The visualized portions of the pulmonary artery and branches are normal. Venous The inferior vena cava is dilated and does not collapse with inspiration. Pericardium/Pleural There is no evidence of pericardial effusion. Measurements 2D Linear Measurements IVSd: 1.12 0.6-0.9/0.6-1.0 cm LVIDd: 4.43 3.9-5.3/4.2-5.9 cm LVIDd Index: 2.14 2.4-3.2/2.2-3.1 cm/m2 LVIDs: 3.50 2.0-3.6 cm LVPWd: 1.15 0.7-1.1 cm Ao Root: 2.80 2.1-3.5 cm LA Diam: 4.30 2.7-3.8/3.0-4.0 cm LAIDs Index: 2.08 1.5-2.3 cm/m2 LV Mass: 222.38 67-162/88-224 g LV Mass Index: 107.43 43-95/49-115 g/m2 LVOT Diam: 2.00 3.0+(-)1.3 cm 2D Systolic Function EF 4C: 44.90 >55% EF 2C: 44.20 >55% EF BiP: 45.60 >55% Mitral Valve MV Pk E: 1.13 MV Decel Time: 103.00 E'Lateral: 10.30 E'Medial: 7.83 E/E' Med: 14.40 E/E' Lat: 11.00 PHT: 30.00 MVA PHT: 7.[address] [place]: 10.94 Aortic Valve AoV Pk Carlos: 1.31 AoV Mn Carlos: 0.88 AoV VTI: 0.21 AoV Pk Grad: 7.00 Aov Mn Grad: 4.00 CRISELDA Cont.VTI: 2.77 LVOT LVOT Pk Carlos: 1.02 LVOT Mn Carlos: 0.75 LVOT VTI: 0.19 LVOT Pk Grad: 4.00 LVOT Mn Grad: 3.00 LVOT Diam: 2.00 LVOT Area: 3.14 Diastolic Function MV Pk E: 1.13 E'Medial: 7.83 E/E' Med: 14.40 E' Laterial: 10.30 E/E' Lat: 11.00 Right Ventricle TAPSE (mm): 16.00 TVS' Carlos: 9.00 Tricuspid Valve TR Pk Carlos: 2.50 TR Pk Grad: 25.00 RA Press: 15.00 RVSP: 40.00 Great Vessels Aorta Ao Root-2D: 2.80 2.0-3.7 cm Ao Asc: 2.90 2.1-3.4 cm Pulmonary Valve PV Pk Carlos: 0.86 Peak PV Grad: 3.00 Updated in Other Vendor System with Status of Final Jordan Orozco MD electronically signed on 11/26/2021 3:55:36 PM with status of Final
[2021-11-26 07:12] VITALS: BP 133/86; PULSE 124; RESP 20; TEMP 36.1; O2SAT 93
[2021-11-26 08:12] LABS: Glucose, Whole Blood 97 mg/dL (60-115)
[2021-11-26] MEDS: Penicillin V Potassium 250 MG TABLET PO ×2 (08:26→20:24)
[2021-11-26] MEDS: rOPINIRole HCL 0.5 MG TABLET PO ×2 (08:26→20:24)
[2021-11-26] MEDS: DULoxetine HCl 20 MG CAPSULE.DR 40 MG PO (08:27)
[2021-11-26] MEDS: DULoxetine HCl 60 MG CAPSULE.DR PO (08:27)
[2021-11-26] MEDS: Colchicine 0.6 MG TABLET PO (08:27)
[2021-11-26] MEDS: Metoprolol Tartrate 25 MG TABLET PO ×2 (08:27→13:17)
[2021-11-26] MEDS: 0.9 % Sodium Chloride Flush 3 ML SYRINGE IVFLUSH ×2 (08:27→23:47)
[2021-11-26] MEDS: Nitrofurantoin Monohyd/M-Cryst 100 MG CAPSULE PO ×2 (08:27→20:24)
[2021-11-26] MEDS: metFORMIN HCl 1,000 MG TABLET 1000 MG PO (08:27)
[2021-11-26] MEDS: Gabapentin 300 MG CAPSULE PO ×3 (08:27→20:24)
[2021-11-26] MEDS: Loratadine 10 MG TABLET PO (08:27)
--- NOTE | 2021-11-26 08:30 | HE.PHANOTE ---
Messaged [facility] to see if someone from the patients home could bring in the non-formulary medication methenamine. Will follow up
--- NOTE | 2021-11-26 09:26 | P.PNIM_ITS ---
Subjective Subjective Date of Service: 11/26/21 Interval History: afutter with rvr Review of Systems No palpitation, no shortness of breath, no chest pain. Physical Exam Vital Signs: Vital Signs: Last Vital Signs Temp 97.0 F 11/26/21 07:12 Pulse 124 H 11/26/21 07:12 Resp 20 11/26/21 07:12 BP 133/86 11/26/21 07:12 Pulse Ox 93 11/26/21 07:12 BMI result Body Mass Index 41.3 General: AO X 3, no acute distress Resp:? CTA bilateral CVS: S1,S2, irregularly irregular GI: +BS, NT, no distention Skin: No rash Neuro:? motor grossly intact Psych: appropriate affect Objective Data Active Medications Acetaminophen (Acetaminophen 325 Mg Tablet) 650 mg PO Q6H PRN PRN Reason: Pain, Mild (Pain Scale 1-3) Last Admin: 11/25/21 08:22 Dose: 650 mg Documented by: CLAUDIO Albuterol Sulfate (Albuterol Sulfate 90 Mcg 8 Gm Inhaler) 2 puff INHALE Q4H PRN PRN Reason: Respiratory Distress Atorvastatin Calcium (Atorvastatin Calcium 10 Mg Tablet) 10 mg PO BEDTIME [facility] Last Admin: 11/25/21 21:14 Dose: 10 mg Documented by: JACQUI Colchicine (Colchicine 0.6 Mg Tablet) 0.6 mg PO DAILY [facility] Last Admin: 11/26/21 08:27 Dose: 0.6 mg Documented by: KP Cyclobenzaprine HCl (Cyclobenzaprine Hcl 10 Mg Tablet) 10 mg PO TID PRN PRN Reason: Muscle Spasm Last Admin: 11/25/21 08:22 Dose: 10 mg Documented by: CLAUDIO Duloxetine HCl (Duloxetine Hcl 60 Mg Capsule.) 60 mg PO DAILY [facility] Last Admin: 11/26/21 08:27 Dose: 60 mg Documented by: KP Duloxetine HCl (Duloxetine Hcl 20 Mg Capsule.) 40 mg PO DAILY [facility] Last Admin: 11/26/21 08:27 Dose: 40 mg Documented by: KP Gabapentin (Gabapentin 300 Mg Capsule) 300 mg PO TID [facility] Last Admin: 11/26/21 08:27 Dose: 300 mg Documented by: KP Diltiazem HCl 125 mg/ Sodium (Chloride) 125 mls @ 0 mls/hr IVCONT .Q0M [facility]; Protocol Last Titration: 11/25/21 09:37 Dose: 0 mg/hr, 0 mls/hr Documented by: CLAUDIO Insulin Human Lispro (Insulin Lispro 100 Unit/Ml 3 Ml Vial) 0 unit SUBCUT QIDACHS [facility]; Protocol Last Admin: 11/26/21 08:03 Dose: Not Given Documented by: KP Non-Admin Reason: No Insulin Coverage Lamotrigine (Lamotrigine 25 Mg Tablet) 250 mg PO BEDTIME [facility] Last Admin: 11/25/21 21:12 Dose: 250 mg Documented by: JACQUI Loratadine (Loratadine 10 Mg Tablet) 10 mg PO DAILY [facility] Last Admin: 11/26/21 08:27 Dose: 10 mg Documented by: KP Metoprolol Tartrate (Metoprolol Tartrate 25 Mg Tablet) 25 mg PO QID [facility]; Protocol Last Admin: 11/26/21 08:27 Dose: 25 mg Documented by: KP Nitrofurantoin Macrocrystals (Nitrofurantoin Monohyd/M-Cryst 100 Mg Capsule) 100 mg PO BID [facility] Last Admin: 11/26/21 08:27 Dose: 100 mg Documented by: KP Non-Formulary Medication (Methenamine Hippurate) 1 gm PO BID [facility] Oxycodone HCl (Oxycodone Hcl Immed Release 5 Mg Tablet) 5 mg PO Q6H PRN PRN Reason: Pain, Severe (Pain Scale 7-10) Last Admin: 11/26/21 03:44 Dose: 5 mg Documented by: JACQUI Penicillin V Potassium (Penicillin V Potassium 250 Mg Tablet) 250 mg PO BID [facility] Last Admin: 11/26/21 08:26 Dose: 250 mg Documented by: KP Pharmacy Consult (Consult Rx Perform Med Rec) 1 each MISCELLANE ONCE PRN PRN Reason: Consult order Ropinirole HCl (Ropinirole Hcl 0.5 Mg Tablet) 0.5 mg PO BID [facility] Last Admin: 11/26/21 08:26 Dose: 0.5 mg Documented by: KP Sodium Chloride (0.9 % Sodium Chloride Flush 3 Ml Syringe) 3 ml IVFLUSH QSHIFT [facility] Last Admin: 05/03/22 08:27 Dose: 3 ml Documented by: KP Warfarin Sodium (Warfarin Sodium 6 Mg Tablet) 6 mg PO DAILY@1800 [facility] Labs CBC & Chem 7: 11/24/21 11:01 11/24/21 11:01 Labs: Laboratory Results - last 24 hr 11/24/21 11/25/21 11/25/21 21:27 10:55 16:03 PT INR POC Glucose 102 95 120 H 11/25/21 11/26/21 11/26/21 20:34 05:57 08:01 PT 18.8 H INR 1.6 H POC Glucose 110 97 Assessment and Plan (1) Atrial flutter: Status: Acute Plan 55 yo female with hx of chronic back pain, DVT on coumadin, HLD, asthma? here with Aflutter with RVR, presumed new AFlutter with RVR--hr 100-120heart rate remains high, adjusted metoprolol to toprol xl 100 mg, also added digoxin po.? Already on Coumadin for anticoagulation.? Echocardiogram today.? Cardiology to advise on further management. Give her regular diet give her regular diet given her regular diet Chronic Back pain--Oxycodone PRN HLD--statin HTN--Metoprolol Diabetes:SSI, diabetic diet DVT prophylaxis--coumadin Need for inpatient:? Management of atrial fibrillation with med medications adjustments still runing high ventricular rate and further cardiac testing Quality Stroke Does the patient have a stroke diagnosis?: No VTE Prior VTE?: Yes VTE Risk Level:: Medical - moderate - high VTE Device Contraindication: Treatment Not Indicated VTE Drug Contraindication: N/A - Med Ordered
[2021-11-26 11:05] LABS: Glucose, Whole Blood 88 mg/dL (60-115)
[2021-11-26 11:47] VITALS: BP 109/78; PULSE 129; RESP 20; TEMP 36.8; O2SAT 94
--- NOTE | 2021-11-26 12:32 | P.CDIC_ITS ---
CDI Concurrent Query Documentation Clarification: PHYSICIAN'S DOCUMENTATION REQUEST Date of Query: 11/26/21 1232 Patient Name: Shruthi Orosco Admit Date: 11/24/21 Dear Doctor, A review of the medical record indicates additional documentation may be needed. Please review below and update the documentation accordingly. Clinical Indicators: Risk Factors/Clinical Indicators/Treatments Nursing notes 11/24 - Extreme Obesity Class III w BMI 41.3 If possible, please provide an associated diagnosis related to the abnormal BMI, such as: For a BMI >= 40: * Overweight * Obesity * Due to excess calories * Drug induced * Due to other cause * Severe or Morbid Obesity * With alveolar hypoventilation * Without alveolar hypoventilation Or: * BMI is not significant * Other (please specify) * Unable to determine Use of terms such as suspected, likely, concern for, or probable (associated with a specific diagnosis that is being evaluated, monitored, or treated as if it exists) are acceptable and can be coded in the inpatient setting, when documented at the time of discharge. Thank you, Karen Samuels [facility], CDIS Extension: [phone] Please use your independent medical judgment in providing your response. THIS QUERY IS PART OF THE PERMANENT MEDICAL RECORD Provider Response: Other Other Diagnosis: Morbid obesity.
--- NOTE | 2021-11-26 12:32 | MHC.CDI.CONC ---
CDI Concurrent Query Documentation Clarification: PHYSICIAN'S DOCUMENTATION REQUEST Date of Query: 11/26/21 1232 Patient Name: Shruthi Orosco Admit Date: 11/24/21 Dear Doctor, A review of the medical record indicates additional documentation may be needed. Please review below and update the documentation accordingly. Clinical Indicators: Risk Factors/Clinical Indicators/Treatments Nursing notes 11/24 - Extreme Obesity Class III w BMI 41.3 If possible, please provide an associated diagnosis related to the abnormal BMI, such as: For a BMI >= 40: Overweight Obesity Due to excess calories Drug induced Due to other cause Severe or Morbid Obesity With alveolar hypoventilation Without alveolar hypoventilation Or: BMI is not significant Other (please specify) Unable to determine Use of terms such as suspected, likely, concern for, or probable (associated with a specific diagnosis that is being evaluated, monitored, or treated as if it exists) are acceptable and can be coded in the inpatient setting, when documented at the time of discharge. Thank you, Karen Samuels [facility], CDIS Extension: [phone] Please use your independent medical judgment in providing your response. THIS QUERY IS PART OF THE PERMANENT MEDICAL RECORD Provider Response: Other Other Diagnosis: Morbid obesity.
[2021-11-26 15:51] VITALS: BP 103/82; PULSE 126; RESP 18; TEMP 36.7; O2SAT 97
[2021-11-26] MEDS: Digoxin 0.125 MG TABLET PO (15:55)
[2021-11-26] MEDS: Metoprolol Succinate ER 100 MG TAB.ER.24H PO (15:56)
--- NOTE | 2021-11-26 15:59 | PM.PNCARD ---
Subjective Subjective Date of Service: 11/26/21 Interval history: Continues to be in atrial flutter with 120 beats per minute heart rate. No palpitations. Short of breath at baseline due to COPD and no change in respiratory status. No chest pain. Physical Exam Vital Signs: Last Vital Signs Temp 98.0 F 11/26/21 15:51 Pulse 126 H 11/26/21 15:51 Resp 18 11/26/21 15:51 BP 103/82 11/26/21 15:51 Pulse Ox 97 11/26/21 15:51 BMI result Body Mass Index 41.3 GENERAL APPEARANCE: in no acute distress, pleasant. NECK: no carotid bruit, no jugular venous distention. SKIN: no suspicious lesions, warm and dry. HEART: no murmurs, tachycardic, LUNGS: clear to auscultation bilaterally. ABDOMEN: soft, nontender. EXTREMITIES: no edema. PERIPHERAL PULSES: equal. NEUROLOGIC: No gross deficits, AAO X 3 Objective Labs and Meds Result diagrams: 11/24/21 11:01 11/24/21 11:01 Lab results: Laboratory Results - last 24 hr 11/25/21 11/25/21 11/26/21 16:03 20:34 05:57 PT 18.8 H INR 1.6 H POC Glucose 120 H 110 11/26/21 11/26/21 08:01 10:59 PT INR POC Glucose 97 88 Progress Note: A&P Assessment and plan (1) Atrial flutter: Status: Acute Plan 55-year-old female who is presenting for back and neck pain incidentally found to be in atrial flutter. Little difficult to control heart rates. On metoprolol succinate. Adding digoxin after load. Digoxin should be every other day. Echocardiography has shown low normal ejection fraction. Clinically not in heart failure. I think as her heart rate improves she can be discharged home and can have cardioversion as outpatient. I will wait for 4-5 weeks and make sure she has therapeutic INRs and probably just cardiovert her without DANIELLE. On the other hand if the INRs continue to be subtherapeutic that she may need DANIELLE cardioversion. Blood pressure control is good. Thank you for allowing me to participate in the care of your patient. Please feel free to contact me if you have any questions. Time Spent With Patient Time: Total time spent is greater than 50% in coordination of care (as documented) at patient's floor/unit and/or counseling patient: Progress Note: Quality Stroke Does the patient have a stroke diagnosis?: No Procedures Date of Service Date of Service: 11/26/21
[2021-11-26 16:09] LABS: Glucose, Whole Blood 124 mg/dL (60-115)
[2021-11-26] MEDS: Warfarin Sodium 6 MG TABLET PO (17:07)
[2021-11-26] MEDS: Digoxin 0.5 MG/2 ML AMPUL IVPUSH (17:08)
[2021-11-26 19:51] VITALS: BP 129/79; PULSE 92; RESP 18; TEMP 36.7; O2SAT 97
[2021-11-26 20:04] LABS: Glucose, Whole Blood 115 mg/dL (60-115)
[2021-11-26] MEDS: lamoTRIgine 25 MG TABLET 250 MG PO (20:24)
[2021-11-26] MEDS: Atorvastatin Calcium 10 MG TABLET PO (20:24)
[2021-11-26] MEDS: Digoxin 0.5 MG/2 ML AMPUL 0.25 MG IVPUSH (22:55)
[2021-11-27] VITALS: BP 153/81; PULSE 66; RESP 20; TEMP 36.7; O2SAT 93
[2021-11-27] MEDS: oxyCODONE HCl Immed Release 5 MG TABLET PO ×2 (02:54→09:57)
[2021-11-27 02:57] VITALS: BP 134/78; PULSE 96; RESP 20; TEMP 36.1; O2SAT 92
[2021-11-27 06:24] LABS: INTERNATIONAL NORM RATIO 1.9 (0.9-1.1); Prothrombin Time 21.7 SEC (9.9-13.0)
[2021-11-27 07:42] VITALS: BP 126/74; PULSE 78; RESP 17; TEMP 36.6; O2SAT 96
[2021-11-27 08:10] LABS: Glucose, Whole Blood 120 mg/dL (60-115)
[2021-11-27] MEDS: Colchicine 0.6 MG TABLET PO (09:58)
[2021-11-27] MEDS: Nitrofurantoin Monohyd/M-Cryst 100 MG CAPSULE PO (09:58)
[2021-11-27] MEDS: DULoxetine HCl 60 MG CAPSULE.DR PO (09:58)
[2021-11-27] MEDS: Loratadine 10 MG TABLET PO (09:58)
[2021-11-27] MEDS: DULoxetine HCl 20 MG CAPSULE.DR 40 MG PO (09:58)
[2021-11-27] MEDS: Penicillin V Potassium 250 MG TABLET PO (09:58)
[2021-11-27] MEDS: Metoprolol Succinate ER 100 MG TAB.ER.24H PO (09:58)
[2021-11-27] MEDS: rOPINIRole HCL 0.5 MG TABLET PO (09:58)
[2021-11-27] MEDS: Gabapentin 300 MG CAPSULE PO ×2 (09:58→14:23)
[2021-11-27] MEDS: 0.9 % Sodium Chloride Flush 3 ML SYRINGE IVFLUSH (09:59)
--- NOTE | 2021-11-27 10:48 | PM.PNCARD ---
Subjective Subjective Date of Service: 11/27/21 Interval history: Better rate controlled. Physical Exam Vital Signs: Last Vital Signs Temp 97.9 F 11/27/21 07:42 Pulse 78 11/27/21 07:42 Resp 17 11/27/21 07:42 BP 126/74 11/27/21 07:42 Pulse Ox 96 11/27/21 07:42 BMI result Body Mass Index 41.3 GENERAL APPEARANCE: in no acute distress, pleasant. NECK: no carotid bruit, no jugular venous distention. SKIN: no suspicious lesions, warm and dry. HEART: no murmurs. LUNGS: clear to auscultation bilaterally. ABDOMEN: soft, nontender. EXTREMITIES: no edema. PERIPHERAL PULSES: equal. NEUROLOGIC: No gross deficits, AAO X 3 Objective Labs and Meds Result diagrams: 11/24/21 11:01 11/24/21 11:01 Lab results: Laboratory Results - last 24 hr 11/26/21 11/26/21 11/26/21 10:59 15:50 19:53 PT INR POC Glucose 88 124 H 115 11/27/21 11/27/21 05:54 07:45 PT 21.7 H INR 1.9 H POC Glucose 120 H Progress Note: A&P Assessment and plan (1) Atrial flutter: Status: Acute Plan 55-year-old female with Atrial flutter. EF is low normal 50-55%. Not in heart failure. c/w metoprolol and digoxin x 48 hours. Stop propranolol. c/w coumkadin. f/u in office and we will discuss cardioversion. Time Spent With Patient Time: Total time spent is greater than 50% in coordination of care (as documented) at patient's floor/unit and/or counseling patient: Progress Note: Quality Stroke Does the patient have a stroke diagnosis?: No Procedures Date of Service Date of Service: 11/27/21
[2021-11-27 11:20] LABS: Glucose, Whole Blood 115 mg/dL (60-115)
--- NOTE | 2021-11-27 12:19 | MHC.CM.PN ---
pt dcd with resumption of vna App in the [employer] called and left message re pts dc [phone]
--- NOTE | 2021-11-27 13:39 | P.DS_ITS ---
DS: Providers Provider Date of Service: 11/27/21 Date of admission: 11/24/21 13:46 Primary care physician: Eulogio Nickerson MD Consults: 11/24/21 13:48 Consult to Cardiology Routine Consulting Provider: Mat Mendez Reason for consultation: New Aflutter with RVR Has provider been notified: No DS: Diagnosis Discharge Diagnosis (1) Atrial flutter: Status: Acute DS: Summary Hospital Course Hospital Course: 55 yo female with hx of chronic back pain, Diabetes, DVT on coumadin, HLD, asthma/COPD presents with palpitations, she relates that that she gets palpitations of and on and can last days of even weeks and she has not had any about 2 weeks or so. She had spontaneous onset of palpitations today that is constatn.. no associated chest pain, sob or dizzinesss. She is found to be in Aflutter with HR around 130 and is given cardizem IV. Of note? she has her usual back rivera that is not any worse - no new injuries, she just had an? MRI on ? and was noted for worsening disc disease but no cord compression or other acute chanages. She has no urinary or stool? incontinence or saddle anesthesia. Got PO? in ED with good relief. She is being admitted for management of AFIB with RVR. Hospitalcourse: Patient came to the hospital because of a flutter-requiring IV heart rate control medication-her heart rate seems to be improving, seen by heart doctor and recommended to adjust her to by mouth heart rate control medications-she is feeling much better, going home. INR was subtherapeutic but improving, warfarin adjusted. Monitor INR and digoxin levels outpatient in 1 week. Echo reviewed with Cardiology:Normal left ventricular cavity size.? There is mildly increased left ventricular wall thickness.? The left ventricular systolic function is low normal.? The visually estimated ejection fraction is between 50-55%.? There is evidence of regional wall motion abnormalities Currently patient is asymptomatic, cardiology recommended to continue him on beta-denilson and digoxin and further workup out patiently. Cardiology may arrange their own appointment. Above management discussed with the patient in detail length she understand and in agreement with the above plan, time spent 50 minutes and 50% time spent on counseling. Significant findings: As above. Procedures performed: None. Treatment and response: As above. Complications: None. Time Spent with Patient Time attestation: Total time spent providing and/or coordinating discharge services: Discharge coordination time: Greater than 30 minutes Quality: Safe Use of Opioids Does Pt have an Active Cancer Diagnosis on the Problem List?: No Quality: Stroke Does the patient have a stroke diagnosis?: No Physical Exam Vital Signs: Vital Signs: Last Vital Signs Temp 97.9 F 11/27/21 07:42 Pulse 78 11/27/21 07:42 Resp 17 11/27/21 07:42 BP 126/74 11/27/21 07:42 Pulse Ox 96 11/27/21 07:42 BMI result Body Mass Index 41.3 General: AO X 3, no acute distress Resp:? CTA bilateral CVS: S1,S2, irregularly irregular GI: +BS, NT, no distention Skin: No rash Neuro:? motor grossly intact Psych: appropriate affect DS: Data Data Completed and Pending Labs on day of discharge: Laboratory Results - last 24 hr 11/26/21 11/26/21 11/27/21 15:50 19:53 05:54 PT 21.7 H INR 1.9 H POC Glucose 124 H 115 11/27/21 11/27/21 07:45 10:57 PT INR POC Glucose 120 H 115 Additional Comments Additional comments: XR/XR chest 1V IMPRESSION: No acute cardiopulmonary process. Discharge Plan Discharge Patient Disposition: Home Health Service Discharge Diagnosis: aflutter Referrals: [facility] [Other] - 1 Week Eulogio Nickerson MD [Primary Care Provider] - 1 Week Discharge Medications: New warfarin [Jantoven] 6 mg Tablet 6 mg PO DAILY@1800 Qty: 30 0RF metoprolol succinate 100 mg Tablet Extended Release 24 Hr 100 mg PO DAILY Qty: 30 0RF Protocol: Hold for SBP/HR < HOLD for SBP < : 90 HOLD for HR < : 60 digoxin 125 mcg (0.125 mg) Tablet 0.125 mg PO Q2D Qty: 14 0RF Continued penicillin V potassium 250 mg Tablet 250 mg PO BID 0RF albuterol sulfate 90 mcg/actuation Hfa Aerosol Inhaler 2 puff INHALATION Q4-6H PRN (Reason: Respiratory Distress) 0RF ropinirole 0.5 mg Tablet 0.5 mg PO BID 0RF cyclobenzaprine 10 mg Tablet 10 mg PO TID PRN (Reason: Muscle Spasm) 0RF gabapentin 300 mg Capsule 300 mg PO TID 0RF metformin 500 mg Tablet 1,000 mg PO BID 0RF lamotrigine 100 mg Tablet 250 mg PO BEDTIME 0RF methenamine hippurate 1 gram Tablet 1 g PO BID 0RF colchicine 0.6 mg Tablet 0.6 mg PO DAILY 0RF loratadine 10 mg Tablet 10 mg PO DAILY 0RF rosuvastatin 10 mg Tablet 10 mg PO DAILY 0RF duloxetine 60 mg Capsule,Delayed Release(Dr/Ec) 60 mg PO DAILY 0RF Rx Instructions: TAKES TOGETHER WITH 40 MG CAPSULE duloxetine 40 mg Capsule, Delayed Rel Sprinkle 40 mg PO DAILY 0RF Rx Instructions: TAKES TOGETHER WITH 60 MG CAPSULE nitrofurantoin monohyd/m-cryst 100 mg capsule 1 cap PO BID 0RF Discontinued warfarin 5 mg Tablet 5 mg PO DAILY 0RF propranolol 20 mg Tablet 20 mg PO BID 0RF Discharge Orders: Discharge Order (Routine); Ordered 11/27/21 Ordered By: Shahab Gonsalez Diet: advance to usual diet Activity on Discharge: As tolerated Stand Alone Forms: Patient Portal Discharge page Other Ambulatory Orders: Basic Metabolic Panel (Routine) Timeframe: 1 Week Facility: [facility] - Location: Laboratory Ordered By: Shahab Gonsalez Digoxin (Routine) Timeframe: 1 Week Facility: [facility] - Location: Laboratory Ordered By: Shahab Gonsalez Care Plan Goals: Patient came to the hospital because of a flutter-requiring IV heart rate control medication-her heart rate seems to be improving, seen by heart doctor and recommended to adjust her to by mouth heart rate control medications-she is feeling much better, going home. INR was subtherapeutic but improving, warfarin adjusted. Monitor INR and digoxin levels outpatient in 1 week. Cardiology may arrange their own appointment. Health Concerns: As above. Plan of Treatment: As above. Assessment: As above.
--- NOTE | 2021-11-27 14:42 | PC.NURSE ---
discharged home. Home med returned to patient.
== END 2021-11-27 14:44 | disposition home health service (06) | DRG 309 ==
LOC: HO.ED 13:05 → HO.EDOVER 13:52 → HO.IMC 22:57
PROVIDERS: Admitting Provider Internal Medicine; Emergency Provider Emergency Medicine; PCP Family Medicine; Visit Provider Internal Medicine
DX: I48.92 Unspecified atrial flutter (principal); Z68.41 Body mass index [BMI] 40.0-44.9, adult; E11.9 Type 2 diabetes mellitus without complications; G89.29 Other chronic pain; E66.01 Morbid (severe) obesity due to excess calories; Z20.822 Contact with and (suspected) exposure to COVID-19; F17.210 Nicotine dependence, cigarettes, uncomplicated; J44.9 Chronic obstructive pulmonary disease, unspecified; E78.5 Hyperlipidemia, unspecified; Z86.718 Personal history of other venous thrombosis and embolism; R79.1 Abnormal coagulation profile; Z71.6 Tobacco abuse counseling; Z71.3 Dietary counseling and surveillance; Z79.01 Long term (current) use of anticoagulants; Z79.84 Long term (current) use of oral hypoglycemic drugs; Z79.899 Other long term (current) drug therapy
CPT/HCPCS: 36415; 71045; 80048; 80076; 82077; 82550; 82947; 83690; 83735; 83880; 84443; 84484; 85025; 85379; 85610; 85730; 87635; 93005; 93306; 96365; 96366; 96375; 99284; 99291; J1160

== ENCOUNTER 2021-12-11 14:40 | Emergency (ER) | payer OTHER, SELFPAY ==
--- NOTE | 2021-12-11 | ECG_ITS ---
Test Reason : CHEST PAIN Blood Pressure : / mmHG Vent. Rate : 060 BPM Atrial Rate : 060 BPM P-R Int : 170 ms QRS Dur : 072 ms QT Int : 444 ms P-R-T Axes : 032 032 050 degrees QTc Int : 444 ms Sinus rhythm with Premature atrial complexes Low voltage QRS Cannot exclude old anterior infarct Borderline ECG When compared with ECG of 24-NOV-2021 10:25, Rhythm change Referred By: Brandon Menon Electronically Signed By:TERESO NICHOLAS
[2021-12-11 14:57] VITALS: BP 101/73; BP 120/75; PULSE 59; PULSE 65; RESP 16; TEMP 36.9; O2SAT 96; O2SAT 98; BMI 39.8
--- NOTE | 2021-12-11 15:01 | ED.CHESTPAIN ---
HPI - Chest Pain General Chief Complaint: Chest Pain Stated Complaint: CP/DIZZYNESS Time Seen by Provider: 12/11/21 15:01 Source: patient Mode of arrival: ambulatory Limitations: no limitations History of Present Illness HPI narrative: Recent diagnosis of atrial flutter, has had intermittent chest discomfort with dizziness. Patients visiting nurse called the ambulance for chest pain MD complaint: chest pain Onset (ago): week(s) Timing of current episode: episodic Onset: during rest Pain location: substernal Severity: mild Quality: aching Risk Factors Coronary artery disease risk factors: hyperlipidemia and hypertension Related Data Home Medications Medication Instructions Recorded Confirmed albuterol sulfate 90 mcg/actuation 2 puff INHALATION Q4-6H PRN 11/24/21 11/24/21 aerosol inhaler colchicine 0.6 mg tablet 0.6 mg PO DAILY 11/24/21 11/24/21 cyclobenzaprine 10 mg tablet 10 mg PO TID PRN 11/24/21 11/24/21 duloxetine 40 mg capsule,delayed 40 mg PO DAILY 11/24/21 11/24/21 release sprinkle duloxetine 60 mg capsule,delayed 60 mg PO DAILY 11/24/21 11/24/21 release gabapentin 300 mg capsule 300 mg PO TID 11/24/21 11/24/21 lamotrigine 100 mg tablet 250 mg PO BEDTIME 11/24/21 11/24/21 loratadine 10 mg tablet 10 mg PO DAILY 11/24/21 11/24/21 metformin 500 mg tablet 1,000 mg PO BID 11/24/21 11/24/21 methenamine hippurate 1 gram tablet 1 g PO BID 11/24/21 11/24/21 nitrofurantoin 1 cap PO BID 11/24/21 11/24/21 monohydrate/macrocrystals 100 mg capsule penicillin V potassium 250 mg 250 mg PO BID 11/24/21 11/24/21 tablet ropinirole 0.5 mg tablet 0.5 mg PO BID 11/24/21 11/24/21 rosuvastatin 10 mg tablet 10 mg PO DAILY 11/24/21 11/24/21 Previous Rx's Medication Instructions Recorded digoxin 125 mcg (0.125 mg) tablet 0.125 mg PO Q2D #14 tab 11/27/21 metoprolol succinate 100 mg 100 mg PO DAILY #30 tab 05/04/22 tablet,extended release 24 hr oxycodone 5 mg capsule 5 mg PO BID PRN #6 cap 11/27/21 warfarin 6 mg tablet (Jantoven) 6 mg PO DAILY@1800 #30 tab 11/27/21 Allergies Allergy/AdvReac Type Severity Reaction Status Date / Time adhesive Allergy Rash Verified 12/11/21 15:01 Review of Systems Constitutional: Constitutional: Reports no additional constitutional complaints Eyes: Eyes: Reports no additional eye complaints ENT: Denies dizziness Cardiovascular: Cardiovascular: Reports no additional cardiovascular complaints Respiratory: Respiratory: Reports as per HPI Gastrointestinal: Gastrointestinal: Reports no additional gastrointestinal complaints Genitourinary: Genitourinary: Reports no additional female genitourinary complaints Musculoskeletal: Musculoskeletal: Reports no additional musculoskeletal complaints Integumentary/Breasts: Skin/Breast: Denies rash Neurologic: Reports system reviewed and no additional complaints, except as documented, Denies dizziness and Denies Sensory deficit (Neuro) Psychiatric: Psychiatric: Denies anxiety PMFSH Past Medical History Medical History Arthritis COPD (chronic obstructive pulmonary disease) Diabetes Disc disorder of cervical region Disc disorder of lumbar region DVT of axillary vein, acute HLD (hyperlipidemia) HTN (hypertension) Scoliosis Surgical History Previous back surgery Family History Family History Father Stroke Other Diabetes Social History Social History Household Members: Children Household Members Other:: daughter Housing: Condominium Do you presently have visiting nurse or other home services: Yes ([employer]NA[employer] services) Patient Tobacco Use Status: Current everyday Tobacco user Tobacco use type: Cigarette Cigarette Packs Per Day: 1 Cigarettes Per Day: 20.0 Advance Directives: No Advance Directives Information Provided: No Advance Directives Date on File: 11/24/21 service: No Physical Exam Vital Signs: Vital Signs: Last Vital Signs Temp 98.4 F 12/11/21 14:57 Pulse 59 12/11/21 14:57 Resp 16 12/11/21 14:57 BP 101/73 12/11/21 14:57 Pulse Ox 96 12/11/21 14:57 BMI result Body Mass Index 39.8 Const: Other: female looking older than stated age Nutritional Appearance: obese Orientation/consciousness: oriented to person and patient oriented x3 Limitations: no limitations HEENT: Head: Yes normal to inspection Ears: external ears normal General nose exam: Normal external nose present Mouth: Normal oral and palatal mucosa present and oropharynx normal Throat: Yes posterior oropharynx normal Eyes: General: appearance normal, both eyes and all related structures Neck: Other: supple Neck: Yes normal visual inspection Chest: Chest palpation & inspection: normal inspection of the chest Resp: Auscultation: clear to auscultation bilaterally Cardio: Jugular venous distension: no JVD Rate: regular rate Rhythm: regular rhythm Heart sounds: S1 normal heart sound present and S2 normal heart sound present GI: Inspection: Yes normal to inspection Palpation (GI): Soft to palpation, nontender and No hepatosplenomegaly present Auscultation: normal bowel sounds : General: Yes no CVA tenderness Back/Spine/Pelvis: Back: no CVA tenderness Skin: General skin exam: no rashes or lesions noted Neuro: General: oriented to person and patient oriented x3 Cranial nerves: Yes CN's II-XII intact bilaterally Motor exam (neuro): 5/5 motor strength present throughout Sensory Exam: No Sensory deficit (Neuro) Extrem: Other: Chronic edema with skin changes Psych: Appearance: grossly normal Course Reevaluation(s) Reevaluation #1: Patient EKG and troponin negative for cardiac ischemia, patient has had symptoms for weeks will dc home with work up as an outpatient Time: 16:11 [facility] - Chest Pain Lab Data Result diagrams: 12/11/21 15:16 12/11/21 15:16 Labs: Lab Results 12/11/21 12/11/21 12/11/21 Range/Units 15:16 15:16 15:16 WBC 5.6 (4.8-10.8) X10*3/uL RBC 4.27 (4.20-5.50) X10*6/uL Hgb 12.5 (12.0-16.0) g/dl Hct 38.7 (37.0-47.0) % MCV 90.6 (80.0-98.0) fL MCH 29.3 (27.0-33.0) pg MCHC 32.3 (31.0-35.0) g/dl RDW 14.1 (11.0-16.0) % Plt Count 199 (160-400) X10*3/uL MPV 9.7 (9.4-12.3) fL Immature Gran % (Auto) 0.2 (0.0-0.4) % Neut % (Auto) 41.4 L (45-73) % Lymph % (Auto) 44.0 H (20-40) % [place] % (Auto) 8.5 (2-11) % Eos % (Auto) 5.0 H (0-4) % Baso % (Auto) 0.9 (0-2) % Lymph # (Auto) 2.5 (1.2-4.9) X10*3/uL [place] # (Auto) 0.5 (0.1-1.2) X10*3/uL Eos # (Auto) 0.3 (0.0-0.4) X10*3/uL Baso # (Auto) 0.1 (0.0-0.2) X10*3/uL Abs Immat Gran (auto) 0.01 (0.00-0.03) X10*3/uL Absolute Neuts (auto) 2.3 (2.0-8.3) x10*3/uL Absolute Nucleated RBC 0.000 (0.0-0.012) X10*3/uL Nucleated RBC % (auto) 0.0 (0.0-0.2) /100WBC Sodium 141 (135-145) mmol/L Potassium 4.3 (3.3-5.1) mmol/L Chloride 107 (96-108) mmol/L Carbon Dioxide 30 H (22-29) mmol/L Anion Gap 8 L (12-20) BUN 12 (9-16) mg/dL Creatinine 0.67 (0.5-1.4) mg/dL Estim Creat Clear Calc 105.7 Estimated GFR > 60 Random Glucose 113 (60-115) mg/dL Calcium 9.0 D (8.4-10.2) mg/dL Troponin I High Sens < 3.5 (<3.5-17.0) ng/L Discharge Plan Discharge Clinical Impression: Chest pain Patient Disposition: Home, Self-Care Instructions: Chest Pain (ED) Prescriptions: No Action penicillin V potassium 250 mg Tablet 250 mg PO BID 0RF albuterol sulfate 90 mcg/actuation Hfa Aerosol Inhaler 2 puff INHALATION Q4-6H PRN (Reason: Respiratory Distress) 0RF ropinirole 0.5 mg Tablet 0.5 mg PO BID 0RF cyclobenzaprine 10 mg Tablet 10 mg PO TID PRN (Reason: Muscle Spasm) 0RF gabapentin 300 mg Capsule 300 mg PO TID 0RF metformin 500 mg Tablet 1,000 mg PO BID 0RF lamotrigine 100 mg Tablet 250 mg PO BEDTIME 0RF methenamine hippurate 1 gram Tablet 1 g PO BID 0RF colchicine 0.6 mg Tablet 0.6 mg PO DAILY 0RF loratadine 10 mg Tablet 10 mg PO DAILY 0RF rosuvastatin 10 mg Tablet 10 mg PO DAILY 0RF duloxetine 60 mg Capsule,Delayed Release(Dr/Ec) 60 mg PO DAILY 0RF Rx Instructions: TAKES TOGETHER WITH 40 MG CAPSULE duloxetine 40 mg Capsule, Delayed Rel Sprinkle 40 mg PO DAILY 0RF Rx Instructions: TAKES TOGETHER WITH 60 MG CAPSULE nitrofurantoin monohyd/m-cryst 100 mg capsule 1 cap PO BID 0RF warfarin [Jantoven] 6 mg Tablet 6 mg PO DAILY@1800 Qty: 30 0RF metoprolol succinate 100 mg Tablet Extended Release 24 Hr 100 mg PO DAILY Qty: 30 0RF Protocol: Hold for SBP/HR < HOLD for SBP < : 90 HOLD for HR < : 60 digoxin 125 mcg (0.125 mg) Tablet 0.125 mg PO Q2D Qty: 14 0RF oxycodone 5 mg capsule 5 mg PO BID PRN (Reason: pain) Qty: 6 0RF Referrals: Eulogio Nickerson MD [Primary Care Provider] - 1 week
[2021-12-11 15:24] LABS: MANUAL DIFF FLAG NO
[2021-12-11 15:26] LABS: Basophils Absolute Auto 0.1 X10*3/uL (0.0-0.2); Basophils Percent Auto 0.9 % (0-2); Eosinophils Absolute Auto 0.3 X10*3/uL (0.0-0.4); Hematocrit 38.7 % (37.0-47.0); Hemoglobin 12.5 g/dl (12.0-16.0); Imm Gran Abs Auto 0.01 X10*3/uL (0.00-0.03); Imm Gran Pct Auto 0.2 % (0.0-0.4); Lymphocytes Absolute Auto 2.5 X10*3/uL (1.2-4.9); Mean Corpuscular HGB Conc 32.3 g/dl (31.0-35.0); Mean Corpuscular Hemoglobin 29.3 pg (27.0-33.0); Mean Corpuscular Volume 90.6 fL (80.0-98.0); Mean Platelet Volume 9.7 fL (9.4-12.3); Monocytes Absolute Auto 0.5 X10*3/uL (0.1-1.2); Monocytes Percent Auto 8.5 % (2-11); Neutrophils Absolute Auto 2.3 x10*3/uL (2.0-8.3); Neutrophils Percent Auto 41.4 % (45-73); Platelet Count 199 X10*3/uL (160-400); Red Blood Count 4.27 X10*6/uL (4.20-5.50); Red Cell Distribution Width 14.1 % (11.0-16.0); White Blood Count 5.6 X10*3/uL (4.8-10.8)
[2021-12-11 15:41] LABS: Anion Gap 8 (12-20); Carbon Dioxide 30 mmol/L (22-29); Chloride 107 mmol/L (96-108); Creatinine Clr Calc Pharmacy 105.7; Estimated Glomerular Filt Rate > 60; Glucose Random 113 mg/dL (60-115); Potassium 4.3 mmol/L (3.3-5.1); Sodium 141 mmol/L (135-145)
[2021-12-11 15:50] LABS: Blood Urea Nitrogen 12 mg/dL (9-16)
[2021-12-11 15:52] LABS: Troponin-I High Sensitivity < 3.5 ng/L (<3.5-17.0)
[2021-12-11 16:29] VITALS: BP 105/65; PULSE 61; RESP 11; TEMP 36.9; O2SAT 95
== END 2021-12-11 16:39 | disposition home or self-care (01) ==
PROVIDERS: Emergency Provider Emergency Medicine; PCP Family Medicine
DX: R07.9 Chest pain, unspecified (principal); I10 Essential (primary) hypertension; E11.9 Type 2 diabetes mellitus without complications; E78.5 Hyperlipidemia, unspecified; F17.200 Nicotine dependence, unspecified, uncomplicated; Z79.899 Other long term (current) drug therapy; Z79.02 Long term (current) use of antithrombotics/antiplatelets
CPT/HCPCS: 36415; 80048; 84484; 85025; 93005; 99282; 99283

== ENCOUNTER → 2021-12-31 14:02 | Outpatient (BNVA) | payer OTHER, SELFPAY | PROVIDERS: PCP Family Medicine; Referring Provider Family Medicine; Visit Provider Nurse Practitioner Family | DX: Z01.810 Encounter for preprocedural cardiovascular examination (principal); I48.92 Unspecified atrial flutter; R93.1 Abnormal findings on diagnostic imaging of heart and coronary circulation; I10 Essential (primary) hypertension | CPT/HCPCS: Q3014 ==

== ENCOUNTER 2022-01-03 07:28 | Emergency (ER) | payer OTHER, SELFPAY ==
--- NOTE | ~2022-01-03 | XR_ITS ---
EXAMINATION: XR CHEST CLINICAL INFORMATION: Shortness of breath COMPARISON: None TECHNIQUE: Frontal view of the chest was obtained. FINDINGS: The lungs are well-expanded and clear of acute process. The heart size and pulmonary vascularity is normal. No gross bony abnormality seen. XR/XR chest 1V IMPRESSION: Unremarkable chest exam.
[2022-01-03 07:33] VITALS: BP 122/74; BP 134/81; PULSE 57; PULSE 60; RESP 18; TEMP 37.4; O2SAT 95; O2SAT 96; BMI 39.6
--- NOTE | 2022-01-03 07:35 | ED.SOB ---
HPI - SOB/Dyspnea General Chief Complaint: Dyspnea Stated Complaint: diff breathing Time Seen by Provider: 01/03/22 07:35 Source: patient Mode of arrival: EMS Limitations: no limitations History of Present Illness HPI Narrative: Patient with increasing shortness of breath for 3 days has been taking her inhailers with no improvement. MD elicited complaint: shortness of breath Pertinent past history: COPD Onset (ago): day(s) Context: smoke/fume exposure Timing: constant Severity: mild Exacerbating factors: exertion Known history of: COPD Associated symptoms: denies other symptoms Treatment prior to arrival: oxygen Related Data Home oxygen amount: none Home Medications Medication Instructions Recorded Confirmed albuterol sulfate 90 mcg/actuation 2 puff inhalation Q4-6H PRN 11/24/21 12/31/21 aerosol inhaler Respiratory Distress colchicine 0.6 mg tablet 0.6 mg PO DAILY 11/24/21 12/31/21 duloxetine 40 mg capsule,delayed 40 mg PO DAILY 11/24/21 12/31/21 release sprinkle duloxetine 60 mg capsule,delayed 60 mg PO DAILY 11/24/21 12/31/21 release lamotrigine 100 mg tablet 250 mg PO BEDTIME 11/24/21 12/31/21 loratadine 10 mg tablet 10 mg PO DAILY 11/24/21 12/31/21 penicillin V potassium 250 mg 250 mg PO BID 11/24/21 12/31/21 tablet rosuvastatin 10 mg tablet 10 mg PO DAILY 11/24/21 12/31/21 nicotine (polacrilex) 4 mg gum mg PO 12/31/21 12/31/21 nitrofurantoin 100 mg PO BID 12/31/21 12/31/21 monohydrate/macrocrystals 100 mg capsule tiotropium bromide 1.25 2 puff inhalation DAILY 12/31/21 12/31/21 mcg/actuation mist for inhalation (Spiriva Respimat) Previous Rx's Medication Instructions Recorded digoxin 125 mcg (0.125 mg) tablet 0.125 mg PO Q2D #14 tabs 11/27/21 metoprolol succinate 100 mg 100 mg PO DAILY #30 tabs 11/27/21 tablet,extended release 24 hr warfarin 6 mg tablet (Jantoven) 6 mg PO DAILY@1800 #30 tabs 11/27/21 Allergies Allergy/AdvReac Type Severity Reaction Status Date / Time adhesive Allergy Rash Verified 12/31/21 14:07 Review of Systems Constitutional: Constitutional: Reports no additional constitutional complaints Eyes: Eyes: Reports no additional eye complaints ENT: Denies dizziness Cardiovascular: Cardiovascular: Reports no additional cardiovascular complaints Respiratory: Respiratory: Reports as per HPI Gastrointestinal: Gastrointestinal: Reports no additional gastrointestinal complaints Genitourinary: Genitourinary: Reports no additional female genitourinary complaints Musculoskeletal: Musculoskeletal: Reports no additional musculoskeletal complaints Integumentary/Breasts: Skin/Breast: Denies rash Neurologic: Reports system reviewed and no additional complaints, except as documented, Denies dizziness and Denies Sensory deficit (Neuro) Psychiatric: Psychiatric: Denies anxiety PMFSH Past Medical History Medical History Arthritis COPD (chronic obstructive pulmonary disease) Diabetes Disc disorder of cervical region Disc disorder of lumbar region DVT of axillary vein, acute HLD (hyperlipidemia) HTN (hypertension) Scoliosis Surgical History Previous back surgery Family History Family History Father Stroke Other Diabetes Social History Social History Household Members: Children Household Members Other:: daughter Housing: Condominium Do you presently have visiting nurse or other home services: 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) Alcohol intake: never Patient Tobacco Use Status: Current everyday Tobacco user Tobacco use type: Cigarette Cigarette Packs Per Day: 1 Cigarettes Per Day: 20.0 Advance Directives: No Advance Directives Information Provided: No Advance Directives Date on File: 11/24/21 service: No Physical Exam Vital Signs: Vital Signs: Last Vital Signs Temp 99.3 F 01/03/22 07:33 Pulse 67 01/03/22 08:57 Resp 17 01/03/22 08:57 BP 126/68 01/03/22 08:57 Pulse Ox 96 01/03/22 08:57 O2 Del Method 01/03/22 08:57 BMI result Body Mass Index 39.6 Const: Other: anxious Nutritional Appearance: average body habitus Orientation/consciousness: oriented to person and patient oriented x3 Limitations: no limitations HEENT: Head: Yes normal to inspection Ears: external ears normal General nose exam: Normal external nose present Mouth: Normal oral and palatal mucosa present and oropharynx normal Throat: Yes posterior oropharynx normal Eyes: General: appearance normal, both eyes and all related structures Neck: Other: supple Neck: Yes normal visual inspection Chest: Chest palpation & inspection: normal inspection of the chest Resp: Auscultation: clear to auscultation bilaterally Cardio: Jugular venous distension: no JVD Rate: regular rate Rhythm: regular rhythm Heart sounds: S1 normal heart sound present and S2 normal heart sound present GI: Inspection: Yes normal to inspection Palpation (GI): Soft to palpation, nontender and No hepatosplenomegaly present Auscultation: normal bowel sounds : General: Yes no CVA tenderness Back/Spine/Pelvis: Back: no CVA tenderness Skin: General skin exam: no rashes or lesions noted Neuro: General: oriented to person and patient oriented x3 Cranial nerves: Yes CN's II-XII intact bilaterally Motor exam (neuro): 5/5 motor strength present throughout Sensory Exam: No Sensory deficit (Neuro) Extrem: General: Yes normal to inspection Psych: Appearance: grossly normal Course Reevaluation(s) Reevaluation #1: patient breathing comfortably, she states she thinks this is anxiety will dc home Time: 09:20 MDM - SOB/Dyspnea Lab Data Result diagrams: 01/03/22 07:53 01/03/22 07:53 Labs: Lab Results 01/03/22 01/03/22 01/03/22 Range/Units 07:50 07:53 07:53 WBC 5.4 (4.8-10.8) X10*3/uL RBC 4.55 (4.20-5.50) X10*6/uL Hgb 13.0 (12.0-16.0) g/dl Hct 40.6 (37.0-47.0) % MCV 89.2 (80.0-98.0) fL MCH 28.6 (27.0-33.0) pg MCHC 32.0 (31.0-35.0) g/dl RDW 14.1 (11.0-16.0) % Plt Count 179 (160-400) X10*3/uL MPV 9.3 L (9.4-12.3) fL Immature Gran % (Auto) 0.2 (0.0-0.4) % Neut % (Auto) 61.6 (45-73) % Lymph % (Auto) 26.2 (20-40) % [place] % (Auto) 9.6 (2-11) % Eos % (Auto) 1.8 (0-4) % Baso % (Auto) 0.6 (0-2) % Lymph # (Auto) 1.4 (1.2-4.9) X10*3/uL [place] # (Auto) 0.5 (0.1-1.2) X10*3/uL Eos # (Auto) 0.1 (0.0-0.4) X10*3/uL Baso # (Auto) 0.0 (0.0-0.2) X10*3/uL Abs Immat Gran (auto) 0.01 (0.00-0.03) X10*3/uL Absolute Neuts (auto) 3.3 (2.0-8.3) x10*3/uL Absolute Nucleated RBC 0.000 (0.0-0.012) X10*3/uL Nucleated RBC % (auto) 0.0 (0.0-0.2) /100WBC Sodium 143 (135-145) mmol/L Potassium 4.2 (3.3-5.1) mmol/L Chloride 106 (96-108) mmol/L Carbon Dioxide 27 (22-29) mmol/L Anion Gap 14 (12-20) BUN 11 (9-16) mg/dL Creatinine 0.70 (0.5-1.4) mg/dL Estim Creat Clear Calc 99.6 Estimated GFR > 60 Random Glucose 116 H (60-115) mg/dL Calcium 9.4 (8.4-10.2) mg/dL Troponin I High Sens (<3.5-17.0) ng/L COVID-19 (REMA) Negative (Negative) COVID-19 Clin Com See Note 01/03/22 Range/Units 07:53 WBC (4.8-10.8) X10*3/uL RBC (4.20-5.50) X10*6/uL Hgb (12.0-16.0) g/dl Hct (37.0-47.0) % MCV (80.0-98.0) fL MCH (27.0-33.0) pg MCHC (31.0-35.0) g/dl RDW (11.0-16.0) % Plt Count (160-400) X10*3/uL MPV (9.4-12.3) fL Immature Gran % (Auto) (0.0-0.4) % Neut % (Auto) (45-73) % Lymph % (Auto) (20-40) % [place] % (Auto) (2-11) % Eos % (Auto) (0-4) % Baso % (Auto) (0-2) % Lymph # (Auto) (1.2-4.9) X10*3/uL [place] # (Auto) (0.1-1.2) X10*3/uL Eos # (Auto) (0.0-0.4) X10*3/uL Baso # (Auto) (0.0-0.2) X10*3/uL Abs Immat Gran (auto) (0.00-0.03) X10*3/uL Absolute Neuts (auto) (2.0-8.3) x10*3/uL Absolute Nucleated RBC (0.0-0.012) X10*3/uL Nucleated RBC % (auto) (0.0-0.2) /100WBC Sodium (135-145) mmol/L Potassium (3.3-5.1) mmol/L Chloride (96-108) mmol/L Carbon Dioxide (22-29) mmol/L Anion Gap (12-20) BUN (9-16) mg/dL Creatinine (0.5-1.4) mg/dL Estim Creat Clear Calc Estimated GFR Random Glucose (60-115) mg/dL Calcium (8.4-10.2) mg/dL Troponin I High Sens 5.2 (<3.5-17.0) ng/L COVID-19 (REMA) (Negative) COVID-19 Clin Com Imaging Data Chest x-ray: My impression: chronic changes, no infiltrate ECG Data Attestation: I personally reviewed and interpreted this ECG as follows: Interpretation: sinus [address] or twave changes Discharge Plan Discharge Clinical Impression: Chronic obstructive pulmonary disease, Anxiety Patient Disposition: Home, Self-Care Instructions: COPD (Chronic Obstructive Pulmonary Disease) (ED), Anxiety (ED) Prescriptions: No Action penicillin V potassium 250 mg Tablet 250 mg PO BID albuterol sulfate 90 mcg/actuation Hfa Aerosol Inhaler 2 puff INHALATION Q4-6H PRN (Reason: Respiratory Distress) lamotrigine 100 mg Tablet 250 mg PO BEDTIME colchicine 0.6 mg Tablet 0.6 mg PO DAILY loratadine 10 mg Tablet 10 mg PO DAILY rosuvastatin 10 mg Tablet 10 mg PO DAILY duloxetine 60 mg Capsule,Delayed Release(Dr/Ec) 60 mg PO DAILY Rx Instructions: TAKES TOGETHER WITH 40 MG CAPSULE duloxetine 40 mg Capsule, Delayed Rel Sprinkle 40 mg PO DAILY Rx Instructions: TAKES TOGETHER WITH 60 MG CAPSULE warfarin [Jantoven] 6 mg Tablet 6 mg PO DAILY@1800 Qty: 30 0RF metoprolol succinate 100 mg Tablet Extended Release 24 Hr 100 mg PO DAILY Qty: 30 0RF Protocol: Hold for SBP/HR < HOLD for SBP < : 90 HOLD for HR < : 60 digoxin 125 mcg (0.125 mg) Tablet 0.125 mg PO Q2D Qty: 14 0RF nitrofurantoin monohyd/m-cryst 100 mg capsule 100 mg PO BID Spiriva Respimat 1.25 mcg/actuation mist 2 puff inhalation DAILY nicotine (polacrilex) 4 mg gum PO Referrals: Eulogio Nickerson MD [Primary Care Provider] - 5 days
--- NOTE | 2022-01-03 07:41 | ECG_ITS ---
Test Reason : sob Blood Pressure : / mmHG Vent. Rate : 059 BPM Atrial Rate : 059 BPM P-R Int : 160 ms QRS Dur : 072 ms QT Int : 432 ms P-R-T Axes : 053 050 068 degrees QTc Int : 427 ms Sinus bradycardia Possible Left atrial enlargement Nonspecific ST and T wave abnormality Abnormal ECG When compared with ECG of 11-DEC-2021 14:57, Premature atrial complexes are no longer Present Referred By: Brandon Menon Electronically Signed By:TERESO NICHOLAS
[2022-01-03] MEDS: Albuterol/Iprat 2.5/0.5MG 3 ML AMPUL.NEB INHALE (07:53)
[2022-01-03 07:56] VITALS: PULSE 61; RESP 14; O2SAT 98
[2022-01-03 07:57] LABS: MANUAL DIFF FLAG NO
[2022-01-03 08:04] LABS: Basophils Percent Auto 0.6 % (0-2); Eosinophils Absolute Auto 0.1 X10*3/uL (0.0-0.4); Eosinophils Percent Auto 1.8 % (0-4); Hematocrit 40.6 % (37.0-47.0); Imm Gran Abs Auto 0.01 X10*3/uL (0.00-0.03); Imm Gran Pct Auto 0.2 % (0.0-0.4); Lymphocytes Absolute Auto 1.4 X10*3/uL (1.2-4.9); Lymphocytes Percent Auto 26.2 % (20-40); Mean Corpuscular Hemoglobin 28.6 pg (27.0-33.0); Mean Corpuscular Volume 89.2 fL (80.0-98.0); Mean Platelet Volume 9.3 fL (9.4-12.3); Monocytes Absolute Auto 0.5 X10*3/uL (0.1-1.2); Monocytes Percent Auto 9.6 % (2-11); Neutrophils Absolute Auto 3.3 x10*3/uL (2.0-8.3); Neutrophils Percent Auto 61.6 % (45-73); Platelet Count 179 X10*3/uL (160-400); Red Blood Count 4.55 X10*6/uL (4.20-5.50); Red Cell Distribution Width 14.1 % (11.0-16.0); White Blood Count 5.4 X10*3/uL (4.8-10.8)
[2022-01-03 08:16] LABS: COVID-19 Test Negative (Negative); IDNOW Serial# 16C4AD1C
[2022-01-03 08:18] LABS: Anion Gap 14 (12-20); Blood Urea Nitrogen 11 mg/dL (9-16); Calcium 9.4 mg/dL (8.4-10.2); Carbon Dioxide 27 mmol/L (22-29); Chloride 106 mmol/L (96-108); Creatinine Clr Calc Pharmacy 99.6; Estimated Glomerular Filt Rate > 60; Glucose Random 116 mg/dL (60-115); Potassium 4.2 mmol/L (3.3-5.1); Sodium 143 mmol/L (135-145)
[2022-01-03 08:57] VITALS: BP 126/68; PULSE 67; RESP 17; O2SAT 96
[2022-01-03 09:06] LABS: Troponin-I High Sensitivity 5.2 ng/L (<3.5-17.0)
== END 2022-01-03 10:08 | disposition home or self-care (01) ==
PROVIDERS: Emergency Provider Emergency Medicine; PCP Family Medicine
DX: F41.9 Anxiety disorder, unspecified (principal); J44.9 Chronic obstructive pulmonary disease, unspecified; E11.9 Type 2 diabetes mellitus without complications; I10 Essential (primary) hypertension; Z86.718 Personal history of other venous thrombosis and embolism; Z20.822 Contact with and (suspected) exposure to COVID-19
CPT/HCPCS: 71045; 80048; 84484; 85025; 87635; 93005; 99284

== ENCOUNTER → 2022-01-06 09:02 | Outpatient (REF) | payer OTHER, SELFPAY ==
--- NOTE | ~2022-01-06 | NM_ITS ---
Myocardial perfusion study Indication: Preoperative cardiovascular risk stratification Technique: The patient was brought in for a Lexiscan perfusion study on 01/06/2022. Patient performed low-level exercise and was injected 0.4 mg of Lexiscan intravenously. Within a minute of injection, 35 mCi of sestamibi was given intravenously. Images were obtained using the SPECT gamma camera interlaced with the gating device. Images were obtained in supine position. Resting perfusion study was performed on 12/07/2021. Patient was administered 35 mCi of sestamibi intravenously at rest. Images were then obtained in supine position. Images obtained with and without CT attenuation. Total DLP 111 mGy-cm Images were processed with the software and compared side to side in short axis, horizontal long axis and vertical long axis views. Findings: The stress perfusion study showed non attenuated images show mildly reduced uptake in the apex of the LV myocardium. Remainder of the LV myocardium is normally perfused. Attenuation corrected images show mildly reduced uptake in the apex and the distal septum of the LV myocardium.. The gated study shows normal LV systolic function with calculated LVEF of 56%. LV cavity is normal in size. The gated study shows normal systolic wall thickening and contraction of segments. Resting study shows no significant change in perfusion pattern compared to stress perfusion study. Gating at rest reveals normal systolic wall motion with ejection fraction at 69%. The findings are consistent with no clear reversible defect suggestive of ischemia. Likely normal myocardial perfusion. NM/NM cardiolite stress test Impression: 1. Myocardial perfusion imaging study shows likely normal myocardial perfusion 2. Gated LVEF is 56% 3. Transient ischemic dilatation not present EKG is nondiagnostic for ischemia
--- NOTE | 2022-01-06 09:05 | CA_ITS ---
Acquisition Time: 2022-01-06 09:22:59 Total Exercise Time: 00:02:00 Test Indications: I48.92 - Unspecified atrial flu Medications: SEE CHART Protocol: LEXISCAN Max HR: 148 BPM 91% of Pred: 162 BPM Max BP: 124/076 mmHG Max Work Load: 1.0 METS Pharmacological stress test with Lexiscan injection, while laying in recliner, without anginal symptoms, with atrial fibrillation throughtout, with normotensive response to injection, with nondiagnostic EKG for ischemia. In recovery she was given aminophylline 75mg IVP to reverse Lexiscan. Nuclear images pending. Test reviewed with Dr Orozco. Note: on arrival to stress lab, EKGs showing afib RVBR with rates 120s- 140s, asymptomatic. She did not take home Metoprolol. She wa treated with Metoprolol 5 mg IV with improvement in heart rate to low 100s. She was then given Metoprolol tartrate 50mg po and allowed to rest for 30 min prior to start of test. Referred By: Susan Raymond Overread By: SUSAN RAYMOND
== END ==
LOC: HO.CARD 09:02
PROVIDERS: PCP Family Medicine; Visit Provider Nurse Practitioner Family
DX: I48.92 Unspecified atrial flutter (principal); R93.1 Abnormal findings on diagnostic imaging of heart and coronary circulation; E11.9 Type 2 diabetes mellitus without complications
CPT/HCPCS: 78452; 93017; A9500; J0280; J2785

== ENCOUNTER → 2022-01-07 08:46 | Outpatient (REF) | payer OTHER, SELFPAY ==
--- NOTE | 2022-01-07 08:49 | ECG_ITS ---
Hook-up date: 2022-01-07 08:13:00 Duration: 24:33:00 Test Indications: UNSPEC. ATRIAL FLUTTER Medications: 98984 QRS complexes 5 Ventricular ectopics which represent <1 % of total QRS comp. 469 Supraventricular ectopics which represent <1 % of total QRS comp. * Paced QRS complexs which represent % of total QRS comp. VENTRICULAR ECTOPY 5 Isolated 0 Bigeminal Cycles 0 Couplets 0 Runs 0 Beats in Runs * Beats LONGEST at * BPM at :: -- * Beats FASTEST at * BPM at :: -- SUPRAVENTRICULAR ECTOPY 460 Isolated 3 Couplets 1 Runs 3 Beats in Runs 3 Beats LONGEST at 114 BPM at 10:43:13 2022-01-07 3 Beats FASTEST at 114 BPM at 10:43:13 2022-01-07 HEART RATES 58 MIN at 02:43:45 2022-01-08 67 AVG 88 MAX at 19:43:16 2022-01-07 LONGEST RR 1.1440 secs at 19:55:53 2022-01-07 S-T LEVELS Channel 1 - 128 mm at 08:13:00 2022-01-07 - 128 mm at 08:13:00 2022-01-07 Channel 2 - 128 mm at 08:13:00 2022-01-07 - 128 mm at 08:13:00 2022-01-07 Channel 3 - 128 mm at 02:73:21 -- - 128 mm at 02:73:21 Underlying rhyhtm is sinus; Average ventricular rate 67/min; range 58-88/min; Rare PACs; Very rare PVCs; No sustained arrhythmias; Patient diary not available for review. Referred By: Susan Raymond Overread By: TERESO NICHOLAS
--- NOTE | 2022-01-07 08:49 | ECG_ITS ---
Test Reason : CK RHYTHM ATRIAL FLUTTER Blood Pressure : / mmHG Vent. Rate : 061 BPM Atrial Rate : 061 BPM P-R Int : 164 ms QRS Dur : 082 ms QT Int : 430 ms P-R-T Axes : 043 032 050 degrees QTc Int : 432 ms Normal sinus rhythm Possible Left atrial enlargement Borderline ECG When compared with ECG of 03-JAN-2022 07:41, Nonspecific T wave abnormality no longer evident in Lateral leads Referred By: Susan Raymond Electronically Signed By:Jordan Orozco
== END ==
LOC: HO.CARD 08:46
PROVIDERS: Visit Provider Nurse Practitioner Family
DX: Z01.810 Encounter for preprocedural cardiovascular examination (principal); I48.92 Unspecified atrial flutter
CPT/HCPCS: 93005; 93225; 93226

== ENCOUNTER 2022-02-19 13:02 | Emergency (ER) | payer OTHER, SELFPAY ==
[2022-02-19 13:51] VITALS: BP 114/41; PULSE 60; RESP 18; TEMP 36.7; O2SAT 98; BMI 37.3
--- NOTE | 2022-02-19 16:00 | ED.BACK ---
HPI - Back Pain/Injury General Chief Complaint: Back Pain/Injury Stated Complaint: back pain Time Seen by Provider: 02/19/22 15:59 Source: patient Mode of arrival: ambulatory Limitations: no limitations History of Present Illness HPI Narrative: 56 yo female presents to the ER for evaluation of acute on chronic low back pain. She reports suffering from multilevel lower back pain for the last 20 years. She had a nerve stimulator placed with no improvement and reports ongoing chronic back pain that is poorly managed by her PCP. She states she has been Pain Management doctors, had injections with no relief. She had MRI in October showing multilevel disease. She reports the pain is in her right lower back, radiates into her right buttock, and down her right leg. She has not been taking any medication for the pain. It is making it difficult for her to sleep and she is depressed because of the pain. She feels helpless and that she cannot find the right doctor. She denies any bowel incontinence, LE weakness or saddle paresthesias. She reports chronic urinary incontinence x10 years. MD elicited complaint: back pain Pertinent past history: prior back pain Onset (ago): year(s) Timing: constant and progressively worsening Severity: severe Quality: sharp and spasming Location: right lower back Radiation: groin, buttocks and right upper leg Exacerbating factors: movement Relieving factors: none Context: unknown Associated symptoms: difficulty walking Treatments prior to arrival: acetaminophen Work related injury: No Related Data Home Medications Medication Instructions Recorded Confirmed albuterol sulfate 90 mcg/actuation 2 puff inhalation Q4-6H PRN 11/24/21 12/31/21 aerosol inhaler Respiratory Distress colchicine 0.6 mg tablet 0.6 mg PO DAILY 11/24/21 12/31/21 duloxetine 40 mg capsule,delayed 40 mg PO DAILY 11/24/21 12/31/21 release sprinkle duloxetine 60 mg capsule,delayed 60 mg PO DAILY 11/24/21 12/31/21 release lamotrigine 100 mg tablet 250 mg PO BEDTIME 11/24/21 12/31/21 loratadine 10 mg tablet 10 mg PO DAILY 11/24/21 12/31/21 penicillin V potassium 250 mg 250 mg PO BID 11/24/21 12/31/21 tablet rosuvastatin 10 mg tablet 10 mg PO DAILY 11/24/21 12/31/21 nicotine (polacrilex) 4 mg gum mg PO 12/31/21 12/31/21 nitrofurantoin 100 mg PO BID 12/31/21 12/31/21 monohydrate/macrocrystals 100 mg capsule tiotropium bromide 1.25 2 puff inhalation DAILY 12/31/21 12/31/21 mcg/actuation mist for inhalation (Spiriva Respimat) Previous Rx's Medication Instructions Recorded digoxin 125 mcg (0.125 mg) tablet 0.125 mg PO Q2D #14 tabs 11/27/21 warfarin 6 mg tablet (Jantoven) 6 mg PO DAILY@1800 #30 tabs 11/27/21 metoprolol succinate 50 mg 75 mg PO DAILY 30 days #45 tabs 01/06/22 tablet,extended release 24 hr cyclobenzaprine 10 mg tablet 10 mg PO TID PRN muscle spasm #10 02/19/22 tabs oxycodone 5 mg tablet 5 mg PO Q6H PRN severe pain (scale 02/19/22 score 7-10) #8 tabs prednisone 50 mg tablet 50 mg PO DAILY #5 tabs 02/19/22 Allergies Allergy/AdvReac Type Severity Reaction Status Date / Time adhesive Allergy Rash Verified 02/19/22 13:51 Review of Systems Review of Systems: Constitutional: No Fever, No Chills Cardiovascular: No Chest Pain, No SOB Respiratory: No Cough, No Sputum Gastrointestinal: No Nausea, No Vomiting, No Diarrhea, No abdominal Pain Genitourinary: No Dysuria, No Urinary Frequency, No Hematuria Musculoskeletal: + joint pain, + Myalgias Skin: No Skin Lesions, No rash Neuro: No Weakness, No Numbness, No Dizziness, No Headache Psych: No Anxiety/Panic, + Depression, No SI Heme/Lymph: No Bruising, No Lymphadenopathy PMFSH Past Medical History Medical History Arthritis COPD (chronic obstructive pulmonary disease) Diabetes Disc disorder of cervical region Disc disorder of lumbar region DVT of axillary vein, acute HLD (hyperlipidemia) HTN (hypertension) Scoliosis Surgical History Previous back surgery Family History Family History Father Stroke Other Diabetes Social History Social History Household Members: Children Household Members Other:: daughter Housing: Condominium Do you presently have visiting nurse or other home services: Yes ([employer] services) Alcohol intake: never Patient Tobacco Use Status: Current everyday Tobacco user Tobacco use type: Cigarette Cigarette Packs Per Day: 1 Cigarettes Per Day: 20.0 Advance Directives: No Advance Directives Information Provided: No Advance Directives Date on File: 11/24/21 service: No Physical Exam Vital Signs: Vital Signs: Last Vital Signs Temp 98.0 F 02/19/22 13:51 Pulse 60 02/19/22 13:51 Resp 18 02/19/22 13:51 BP 114/41 L 02/19/22 13:51 Pulse Ox 98 02/19/22 13:51 O2 Del Method 02/19/22 13:51 BMI result Body Mass Index 37.3 Appearance: Alert. Oriented X3. No acute distress. HEENT: normal inspection CVS: Normal heart rate and rhythm. Pulses normal. Respiratory: No respiratory distress. Skin: Skin warm and dry. Normal skin color. Normal skin turgor. No rashes. Back: right lower lumbar area with soft tissue tenderness and spasm, +tenderness of the entire lumbar spine. Extremities: normal inspection x4, atraumatic Neuro: Oriented X 3. No motor deficit. No sensory deficit. Ambulates with her wheeling walker with steady gait. Course Course Course Narrative: 56 y/o female presenting to the ER with acute on chronic low back pain. MRI read was reviewed. She has multilevel degenerative changes and disc bulging. No signs of cauda equina syndrome. Her clinical presentation is consistent with lumbar radiculopathy and sciatica. Will treat with short course of prednisone (no longer DM with weight loss), short course of oxycodone and muscle relaxer. She has an appointment with [facility] March 03. Will give her Pain Management number as well per request. Stable for d/c home. Discharge Plan Discharge Clinical Impression: Lumbar radiculopathy Patient Disposition: Home, Self-Care Instructions: Lumbar Radiculopathy (ED), Lower Back Exercises (ED) Additional Instructions: No bending, lifting or twisting. Use ice several times per day for 20 minutes at a time for the next 48 hours and then change to heat. Take medications as prescribed to help with pain and discomfort. Follow up with your Primary Care Doctor as well as Pain Management provider, name and number below. Follow up with [facility] specialist in February as scheduled. If your pain worsens, if you develop new numbness, tingling, weakness, loss of function or incontinence call 911 or come back to the ER right away for evaluation. Prescriptions: New prednisone 50 mg tablet 50 mg PO DAILY Qty: 5 0RF cyclobenzaprine 10 mg tablet 10 mg PO TID PRN (Reason: muscle spasm) Qty: 10 0RF oxycodone 5 mg tablet 5 mg PO Q6H PRN (Reason: severe pain (scale score 7-10)) Qty: 8 0RF Rx Instructions: Partial Fill upon patient request. No Action metoprolol succinate 50 mg tablet extended release 24 hr 75 mg PO DAILY 30 Days Qty: 45 5RF penicillin V potassium 250 mg Tablet 250 mg PO BID albuterol sulfate 90 mcg/actuation Hfa Aerosol Inhaler 2 puff INHALATION Q4-6H PRN (Reason: Respiratory Distress) lamotrigine 100 mg Tablet 250 mg PO BEDTIME colchicine 0.6 mg Tablet 0.6 mg PO DAILY loratadine 10 mg Tablet 10 mg PO DAILY rosuvastatin 10 mg Tablet 10 mg PO DAILY duloxetine 60 mg Capsule,Delayed Release(Dr/Ec) 60 mg PO DAILY Rx Instructions: TAKES TOGETHER WITH 40 MG CAPSULE duloxetine 40 mg Capsule, Delayed Rel Sprinkle 40 mg PO DAILY Rx Instructions: TAKES TOGETHER WITH 60 MG CAPSULE warfarin [Jantoven] 6 mg Tablet 6 mg PO DAILY@1800 Qty: 30 0RF digoxin 125 mcg (0.125 mg) Tablet 0.125 mg PO Q2D Qty: 14 0RF nitrofurantoin monohyd/m-cryst 100 mg capsule 100 mg PO BID Spiriva Respimat 1.25 mcg/actuation mist 2 puff inhalation DAILY nicotine (polacrilex) 4 mg gum PO Referrals: Bethel Ramírez MD [Physician] - (chronic back pain, not a surgical candidate) Interventions: ED Discharge Assessment Last Done: 02/19/22 16:25 Discharge Date/Time: 02/19/22 16:26
[2022-02-19] MEDS: oxyCODONE HCl Immed Release 5 MG TABLET PO (16:19)
[2022-02-19] MEDS: Lidocaine 4 % Patch ADH..PATCH 1 PATCH TRANSDERMA (16:19)
[2022-02-19] MEDS: Acetaminophen 325 MG TABLET 975 MG PO (16:19)
== END 2022-02-19 16:26 | disposition home or self-care (01) ==
PROVIDERS: Emergency Provider Internal Medicine; PCP Family Medicine
DX: M54.16 Radiculopathy, lumbar region (principal); G89.29 Other chronic pain; M54.41 Lumbago with sciatica, right side; I10 Essential (primary) hypertension; E78.5 Hyperlipidemia, unspecified; E11.9 Type 2 diabetes mellitus without complications; F17.210 Nicotine dependence, cigarettes, uncomplicated
CPT/HCPCS: 99283

== ENCOUNTER → 2022-05-01 13:54 | Outpatient (BNVA) | payer OTHER, SELFPAY | PROVIDERS: PCP Family Medicine; Referring Provider Family Medicine; Visit Provider Nurse Practitioner Family | DX: I48.92 Unspecified atrial flutter (principal); R93.1 Abnormal findings on diagnostic imaging of heart and coronary circulation; I10 Essential (primary) hypertension | CPT/HCPCS: 99212 ==

== ENCOUNTER 2022-05-02 15:28 | Emergency (ER) | payer OTHER, SELFPAY ==
[2022-05-02 17:06] VITALS: BP 105/90; PULSE 99; RESP 16; TEMP 36.6; O2SAT 98; BMI 33.5
== END 2022-05-02 22:37 | disposition left against medical advice (07) ==
PROVIDERS: Emergency Provider Emergency Medicine; PCP Family Medicine
DX: M54.50 Low back pain, unspecified (principal)
CPT/HCPCS: 99281

== ENCOUNTER 2022-05-03 06:50 | Emergency (ER) | payer OTHER, SELFPAY ==
[2022-05-03 07:36] VITALS: BP 141/57; PULSE 63; RESP 17; TEMP 36.1; O2SAT 96; BMI 37.2
--- NOTE | 2022-05-03 08:11 | ED.GENADULT ---
HPI - General Adult General Chief complaint: Back Pain/Injury Stated complaint: Fall/Back pain Time Seen by Provider: 05/03/22 08:09 Source: patient Mode of arrival: ambulatory (with walkers) Limitations: no limitations History of Present Illness HPI narrative: Patient is a 56 year old female presenting to the emergency department today with back and neck pain. Patient states that a few days ago, she had a trip and fall and twisted her lower back while hitting the right side of her face. Patient denies any loss of consciousness from the incident. Patient states that she has chronic back pain and has a procedure to help that scheduled. Patient states she used to get 10mg oxy to help her pain and usually that helps her break through pain. Patient denies any dizziness, lightheadedness, abdominal pain, nausea, vomiting, fever, chills, blurry vision, double vision, loss of vision, chest pain, difficulty breathing, shortness of breath, night sweats, pain with urination, increased urinary frequency, increased urinary urgency, blood in her urine or stool, syncope or a near syncopal episode, recent trauma or falls, bowel incontinence, bladder incontinence, bowel retention, bladder retention, or any other complaints at this time. Onset (ago): day(s) (5) Location: head and back Severity: mild Severity scale (1-10): 4 Quality: aching Pain Consistency: constant Relieving factors: none Exacerbating factors: none Associated symptoms: denies other symptoms Treatments prior to arrival: none Related Data Home Medications Medication Instructions Recorded Confirmed albuterol sulfate 90 mcg/actuation 2 puff inhalation Q4-6H PRN 11/24/21 05/01/22 aerosol inhaler Respiratory Distress colchicine 0.6 mg tablet 0.6 mg PO DAILY 11/24/21 05/01/22 duloxetine 40 mg capsule,delayed 40 mg PO DAILY 11/24/21 05/01/22 release sprinkle duloxetine 60 mg capsule,delayed 60 mg PO DAILY 11/24/21 05/01/22 release lamotrigine 100 mg tablet 250 mg PO BEDTIME 11/24/21 05/01/22 loratadine 10 mg tablet 10 mg PO DAILY 11/24/21 05/01/22 penicillin V potassium 250 mg 250 mg PO BID 11/24/21 05/01/22 tablet rosuvastatin 10 mg tablet 10 mg PO DAILY 11/24/21 05/01/22 nitrofurantoin 100 mg PO BID 12/31/21 05/01/22 monohydrate/macrocrystals 100 mg capsule tiotropium bromide 1.25 2 puff inhalation DAILY 12/31/21 05/01/22 mcg/actuation mist for inhalation (Spiriva Respimat) ropinirole 0.5 mg tablet 0.5 mg PO TID 05/01/22 05/01/22 Previous Rx's Medication Instructions Recorded digoxin 125 mcg (0.125 mg) tablet 0.125 mg PO Q2D #14 tabs 11/27/21 warfarin 6 mg tablet (Jantoven) 6 mg PO DAILY@1800 #30 tabs 11/27/21 metoprolol succinate 50 mg 75 mg PO DAILY 30 days #45 tabs 01/06/22 tablet,extended release 24 hr oxycodone 10 mg tablet 10 mg PO Q4H PRN pain #10 tabs 05/03/22 Allergies Allergy/AdvReac Type Severity Reaction Status Date / Time adhesive Allergy Rash Verified 05/01/22 13:57 Review of Systems Constitutional: Constitutional: Reports no additional constitutional complaints, Denies chills, Denies fever(s), Reports headache(s) and Denies night sweats Eyes: Eyes: Reports no additional eye complaints, Denies blurry vision, Denies change in vision, Denies diplopia, Denies eye discharge, Denies loss of vision and Denies eye pain ENT: Denies dizziness and Reports headache(s) Cardiovascular: Cardiovascular: Reports no additional cardiovascular complaints, Denies chest pain, Denies lightheadedness, Denies Loss of Consciousness and Denies dyspnea Respiratory: Respiratory: Reports no additional respiratory complaints and Denies dyspnea Gastrointestinal: Gastrointestinal: Reports no additional gastrointestinal complaints, Denies abdominal pain, Denies melena, Denies hematochezia, Denies change in bowel habits and Denies change in stool character Genitourinary: Genitourinary: Denies hematuria, Denies urinary frequency, Denies dysuria, Denies urinary incontinence, Denies urinary hesitancy and Denies urinary urgency Musculoskeletal: Musculoskeletal: Reports no additional musculoskeletal complaints, Reports back pain, Denies numbness and Denies tingling Neurologic: Denies dizziness, Reports headache(s), Denies loss of vision, Denies numbness and Denies tingling Psychiatric: Psychiatric: Reports no additional psychiatric complaints Endocrine: Endocrine: Reports no additional endocrine complaints Hematologic/Lymphatic: Hematologic/Lymphatic: Reports no additional hematologic/lymphatic complaints Allergic/Immunologic: Allergic/Immunologic: Reports no additional allergic/immunologic complaints PMF Past Medical History Attestation statement: The following information was validated with the patient. Source: old records reviewed Medical History Arthritis COPD (chronic obstructive pulmonary disease) Diabetes Disc disorder of cervical region Disc disorder of lumbar region DVT of axillary vein, acute HLD (hyperlipidemia) HTN (hypertension) Scoliosis Surgical History Previous back surgery Family History Family History Father Stroke Other Diabetes Social History Social History Household Members: Children Household Members Other:: daughter Housing: Condominium Do you presently have visiting nurse or other home services: Yes ([employer] services) Alcohol intake: never Patient Tobacco Use Status: Current everyday Tobacco user Tobacco use type: Cigarette Cigarette Packs Per Day: 1 Cigarettes Per Day: 20.0 Advance Directives: No Advance Directives Information Provided: Yes Advance Directives Date on File: 11/24/21 service: No Physical Exam ED Vital Signs: Vital Signs - 24 hr 05/03/22 07:36 Temperature 97.0 F Pulse Rate 63 Respiratory Rate 17 Blood Pressure 141/57 H Pulse Oximetry 96 Oxygen Delivery Method Room Air BMI result Body Mass Index 37.2 Const General: cooperative, no acute distress, alert and awake Nutritional Appearance: well nourished Orientation/consciousness: patient oriented x3 Limitations: no limitations HENMT Head: Yes normal to inspection and Yes atraumatic Ears: hearing grossly normal bilaterally and external ears normal General nose exam: Normal external nose present, no nasal discharge noted and no epistaxis Face and sinus: Yes normal facial exam, No abrasion and No laceration Mouth: Normal oral and palatal mucosa present, no drooling and no muffled voice Eyes General: appearance normal, both eyes and all related structures Periorbital: periorbital findings normal Eyelids: Yes eyelids normal Conjunctivae: conjunctivae normal Pupils: Equal, round and reactive pupils present EOM: EOMs intact bilaterally Neck Neck: Yes normal visual inspection, Yes full ROM and Yes no lymphadenopathy Chest Chest palpation & inspection: normal inspection of the chest Resp Effort & Inspection: normal respiratory effort and able to speak in complete sentences Auscultation: clear to auscultation bilaterally Cardio Rate: regular rate Rhythm: regular rhythm GI Inspection: Yes normal to inspection Neuro General: patient oriented x3 and moves all extremities Cranial nerves: Yes Equal, round and reactive pupils present Cognition (Neuro): normal cognition Motor exam (neuro): 5/5 motor strength present throughout Sensory Exam: Normal double simultaneous stimulation for sensation Coordination: izhftk-[id number] test normal Extrem General: Yes normal to inspection, Yes full ROM and Yes capillary refill normal Psych Appearance: grossly normal Mental Status: mental status grossly normal Affect: normal affect Attitude: cooperative Thought process: Normal thought process present Thought content: Normal thought content present Insight: Good insight present (Psych) Medical Decision Making MDM Narrative Medical decision making narrative: Patient is a 56 year old female presenting to the emergency department today with back and neck pain. Patient's physical exam was unremarkable. Patient's head, c-spine and lumbar CTs all showed no acute process. I explained my physical exam findings as well as all test results to the patient. I answered all questions asked by the patient. Patient received 10mg of oxy while in the department which she stated helped her pain significantly. I stressed the importance of the patient taking her medication as prescribed. I stressed the importance of the patient following up with her primary care provider, academic records specialist, and her pain specialist. I stressed the importance of the patient returning to the emergency department immediately if her symptoms were to worsen or if she were to develop any dizziness, shortness of breath, difficulty breathing, chest pain, blurry vision, loss of vision, nausea, vomiting, abdominal pain, fever, chills, or any other complaints. Patient verbalized agreement and understanding with this treatment plan and discharge. Medical Records Medical records reviewed: Yes I reviewed the patient's medical records. Imaging Data CT scan - head: Attestation: I personally reviewed and interpreted this imaging study as follows: My impression: No acute process. Radiologist's impression: EXAMINATION: CT HEAD WITHOUT CONTRAST CLINICAL INFORMATION: Fall. Head strike.? COMPARISON: Report from a CT head dated 11/07/2008. Images not available for comparison at the time of interpretation. TECHNIQUE: Contiguous axial imaging was performed from the skull base to vertex without intravenous administration of contrast. This CT examination was performed using dose optimization techniques as appropriate, variously including the following: *Automated exposure control *Adjustment of mA and/or kV according to patient size (this includes techniques or standardized protocols for targeted exams where dose is matched to indication/reason for exam; i.e. extremities or head) *Use of iterative reconstruction technique DLP: 1621 mGy-cm (including cervical spine and lumbar spine). FINDINGS: No acute intracranial hemorrhage or mass effect. No parenchymal lesion. No midline shift. The zafar-white differentiation is maintained. No extra-axial fluid collection. The ventricles and sulci are unremarkable. The basal cisterns are patent. The visualized paranasal sinuses and mastoid air cells are clear. The calvarium is intact. CT/CT head/brain wo IV con IMPRESSION: No acute intracranial hemorrhage or mass effect. Dictated By: Rustam Crump MD Signed By: Electronically signed by Rustam Crump MD 05/03/[address] scan - c-spine: Attestation: I personally reviewed and interpreted this imaging study as follows: My impression: No acute fractures. Radiologist's impression: EXAMINATION: CT CERVICAL SPINE WITHOUT CONTRAST CLINICAL INFORMATION: Status post fall. Head strike. Neck pain.? COMPARISON: Report of CT cervical spine of 05/22/2011, images are not available for direct review at the time of dictation. TECHNIQUE: Multidetector volumetric CT imaging of the cervical spine is acquired without intravenous contrast administration. Postprocessing is performed at a dedicated workstation. Multiplanar reformatted images are submitted.? This CT examination was performed using dose optimization techniques as appropriate, variously including the following: *Automated exposure control *Adjustment of mA and/or kV according to patient size (this includes techniques or standardized protocols for targeted exams where dose is matched to indication/reason for exam; i.e. extremities or head) *Use of iterative reconstruction technique DLP: 537 mGy-cm FINDINGS: The vertebral body heights are maintained. There is mild reversal of cervical lordosis. There is mild grade 1 anterolisthesis of C3 over C4 and of C4 over C5. Ihrqzssb-mt-blurvr disc space narrowing is noted at C6-C7. Uvxh-we-ykhhycyd disc space narrowing is noted at C4-C5, C5-C6. Small marginal endplate osteophytes are noted from C4 to C7. Mild bilateral facet arthropathy is noted at multiple levels. Atlantoaxial and atlantooccipital alignments are maintained. The posterior elements are intact and in normal alignment. There is no evidence of tight central canal stenosis. The visualized paranasal sinuses, mastoid air cells and middle ear cavities are well-aerated. Mild left neuroforaminal stenosis is noted at C3-C4. Moderate bilateral neuroforaminal stenosis at C5-C6 and C6-C7. Moderate left neuroforaminal stenosis at C4-C5. Limited evaluation of the visualized brain parenchyma is unremarkable. No evidence of prevertebral soft tissue swelling. The airway is patent. No focal thyroid nodule. Evaluation of the lung parenchyma is limited due to respiratory motion artifacts; however, underlying changes of emphysema are suspected.? CT/CT cervical spine wo IV con IMPRESSION: No evidence of acute fracture or traumatic subluxation in the cervical spine. Mild reversal of cervical lordosis is likely related to muscle spasm or patient positioning. Degenerative changes in the cervical spine, greater from C4 to C7.? ? Fleischner guidelines were followed. Dictated By: Henry Evans MD Signed By: Electronically signed by Henry Evans MD 05/03/[address] scan - lumbar spine: Attestation: I personally reviewed and interpreted this imaging study as follows: My impression: No acute process. Radiologist's impression: EXAMINATION: CT LUMBAR SPINE WITHOUT CONTRAST CLINICAL INFORMATION: Fall. Head strike. Pain.? COMPARISON: Report from a lumbar spine CT dated 05/22/2011. No images available for comparison at the time of interpretation.? TECHNIQUE: Contiguous axial CT images of the lumbar spine were obtained without contrast. Sagittal and coronal reformats were provided and reviewed.? This CT examination was performed using dose optimization techniques as appropriate, variously including the following: *Automated exposure control *Adjustment of mA and/or kV according to patient size (this includes techniques or standardized protocols for targeted exams where dose is matched to indication/reason for exam; i.e. extremities or head) *Use of iterative reconstruction technique DLP; 1621 mGy-cm (including head and cervical spine). FINDINGS: Levocurvature of the lumbar spine centered at the L2-L3 intervertebral disc. Mild left lateral translation of L3 on L4. Minimal grade 1 anterolisthesis of L4 on L5. No acute fracture or subluxation. No loss of vertebral body height. Multilevel loss of intervertebral disc height with degenerative endplate changes and intervertebral disc gas. Prominent endplate osteophytes. Findings are most severe at L3-L4. Severe multilevel bilateral facet arthropathy. No concerning lytic or blastic osseous lesion. No abnormal soft tissue mass or fluid collection. Atherosclerotic calcifications. Multilevel disc bulges are not well evaluated on CT examination. Wnya-qb-nwgfvxyu multilevel central canal and bilateral neuroforaminal stenosis, most prominent at L3-L4.? CT/CT lumbar spine wo IV con IMPRESSION: 1. No acute fracture or subluxation. ? 2. Chronic levocurvature of the lumbar spine with lateral translation of L3 on L4 and grade 1 anterolisthesis of L4 on L5. ? 3. Prominent multilevel degenerative disc disease and bilateral facet arthropathy with multilevel disc bulges causing central canal and neuroforaminal stenosis. Evaluation of disc bulges and stenosis limited on CT examination.? Dictated By: Rustam Crump MD Signed By: Electronically signed by Rustam Crump MD 05/03/22 0915 Discharge Plan Discharge Clinical Impression: Back pain Patient Disposition: Home, Self-Care Instructions: Back Pain (ED), Opioid Safety (ED), Safe Disposal of Opioids (ED) Additional Instructions: Follow up with your primary care provider, your pain specialist, and your academic records specialist. Return to the emergency department immediately if your symptoms worsen or if you develop any dizziness, shortness of breath, difficulty breathing, chest pain, blurry vision, loss of vision, nausea, vomiting, abdominal pain, fever, chills, back pain, or any other complaints. Prescriptions: New oxycodone 10 mg tablet 10 mg PO Q4H PRN (Reason: pain) Qty: 10 0RF Rx Instructions: Partial Fill upon patient request. No Action metoprolol succinate 50 mg tablet extended release 24 hr 75 mg PO DAILY 30 Days Qty: 45 5RF penicillin V potassium 250 mg Tablet 250 mg PO BID albuterol sulfate 90 mcg/actuation Hfa Aerosol Inhaler 2 puff INHALATION Q4-6H PRN (Reason: Respiratory Distress) lamotrigine 100 mg Tablet 250 mg PO BEDTIME colchicine 0.6 mg Tablet 0.6 mg PO DAILY loratadine 10 mg Tablet 10 mg PO DAILY rosuvastatin 10 mg Tablet 10 mg PO DAILY duloxetine 60 mg Capsule,Delayed Release(Dr/Ec) 60 mg PO DAILY Rx Instructions: TAKES TOGETHER WITH 40 MG CAPSULE duloxetine 40 mg Capsule, Delayed Rel Sprinkle 40 mg PO DAILY Rx Instructions: TAKES TOGETHER WITH 60 MG CAPSULE warfarin [Jantoven] 6 mg Tablet 6 mg PO DAILY@1800 Qty: 30 0RF digoxin 125 mcg (0.125 mg) Tablet 0.125 mg PO Q2D Qty: 14 0RF nitrofurantoin monohyd/m-cryst 100 mg capsule 100 mg PO BID Spiriva Respimat 1.25 mcg/actuation mist 2 puff inhalation DAILY ropinirole 0.5 mg tablet 0.5 mg PO TID Referrals: Eulogio Nickerson MD [Primary Care Provider] - Print Language: Vincentian
[2022-05-03] MEDS: oxyCODONE HCl Immed Release 5 MG TABLET 10 MG PO (08:46)
== END 2022-05-03 09:35 | disposition home or self-care (01) ==
PROVIDERS: Emergency Provider Emergency Medicine; PCP Family Medicine
DX: Z04.3 Encounter for examination and observation following other accident (principal); M54.50 Low back pain, unspecified; M54.2 Cervicalgia; M54.9 Dorsalgia, unspecified; E11.9 Type 2 diabetes mellitus without complications; I10 Essential (primary) hypertension; E78.5 Hyperlipidemia, unspecified; I48.92 Unspecified atrial flutter; F17.210 Nicotine dependence, cigarettes, uncomplicated; Z96.651 Presence of right artificial knee joint; Z79.02 Long term (current) use of antithrombotics/antiplatelets; Z79.899 Other long term (current) drug therapy; Z79.01 Long term (current) use of anticoagulants
CPT/HCPCS: 70450; 72125; 72131; 99283; 99284

== ENCOUNTER 2022-05-31 09:39 | Emergency (ER) | payer OTHER, SELFPAY ==
[2022-05-31 10:02] VITALS: BP 152/83; PULSE 96; RESP 16; TEMP 36.1; O2SAT 96; BMI 39.2
--- NOTE | 2022-05-31 11:03 | ED_ITS ---
HPI - Back Pain/Injury General Chief Complaint: Back Pain/Injury Stated Complaint: lower back pain Time Seen by Provider: 05/31/22 10:54 Source: patient Mode of arrival: ambulatory Limitations: no limitations History of Present Illness HPI Narrative: Patient presented to the emergency department with a chief complaint of lower back pain, she has history of chronic back pain she has been seen in this emergency room before for chronic lower back pain, she also is followed by a spinal surgeon. She denies any fever, weakness in the lower extremity and numbness in the lower extremity she is not incontinent of urine. MD elicited complaint: back pain Pertinent past history: prior back pain Onset (ago): year(s) Timing: constant Similar Symptoms Previously: Yes Quality: dull Location: lumbar spine Associated symptoms: denies other symptoms Related Data Home Medications Medication Instructions Recorded Confirmed albuterol sulfate 90 mcg/actuation 2 puff inhalation Q4-6H PRN 11/24/21 05/01/22 aerosol inhaler Respiratory Distress colchicine 0.6 mg tablet 0.6 mg PO DAILY 11/24/21 05/01/22 duloxetine 40 mg capsule,delayed 40 mg PO DAILY 11/24/21 05/01/22 release sprinkle duloxetine 60 mg capsule,delayed 60 mg PO DAILY 11/24/21 05/01/22 release lamotrigine 100 mg tablet 250 mg PO BEDTIME 11/24/21 05/01/22 loratadine 10 mg tablet 10 mg PO DAILY 11/24/21 05/01/22 penicillin V potassium 250 mg 250 mg PO BID 11/24/21 05/01/22 tablet rosuvastatin 10 mg tablet 10 mg PO DAILY 11/24/21 05/01/22 nitrofurantoin 100 mg PO BID 12/31/21 05/01/22 monohydrate/macrocrystals 100 mg capsule tiotropium bromide 1.25 2 puff inhalation DAILY 12/31/21 05/01/22 mcg/actuation mist for inhalation (Spiriva Respimat) ropinirole 0.5 mg tablet 0.5 mg PO TID 05/01/22 05/01/22 Previous Rx's Medication Instructions Recorded digoxin 125 mcg (0.125 mg) tablet 0.125 mg PO Q2D #14 tabs 11/27/21 warfarin 6 mg tablet (Jantoven) 6 mg PO DAILY@1800 #30 tabs 11/27/21 metoprolol succinate 50 mg 75 mg PO DAILY 30 days #45 tabs 01/06/22 tablet,extended release 24 hr oxycodone 10 mg tablet 10 mg PO Q4H PRN pain #10 tabs 05/03/22 oxycodone 5 mg capsule 5 mg PO Q8H PRN pain #12 caps 05/31/22 Allergies Allergy/AdvReac Type Severity Reaction Status Date / Time adhesive Allergy Rash Verified 05/01/22 13:57 Review of Systems Review of Systems: Yes all other systems are reviewed and are negative ENT: Reports system reviewed and no additional complaints, except as documented Cardiovascular: Cardiovascular: Reports no additional cardiovascular complaints Respiratory: Respiratory: Reports no additional respiratory complaints Musculoskeletal: Musculoskeletal: Reports other (lower back pain) [facility] Past Medical History Medical History Arthritis COPD (chronic obstructive pulmonary disease) Diabetes Disc disorder of cervical region Disc disorder of lumbar region DVT of axillary vein, acute HLD (hyperlipidemia) HTN (hypertension) Scoliosis Surgical History Previous back surgery Family History Family History Father Stroke Other Diabetes Social History Social History Household Members: Children Household Members Other:: daughter Housing: Condominium Do you presently have visiting nurse or other home services: Yes ([employer] services) Alcohol intake: never Patient Tobacco Use Status: Current everyday Tobacco user Tobacco use type: Cigarette Cigarette Packs Per Day: 1 Cigarettes Per Day: 20.0 Advance Directives: No Advance Directives Date on File: 11/24/21 service: No Physical Exam Vital Signs: Vital Signs: Last Vital Signs Temp 97.0 F 05/31/22 10:02 Pulse 96 05/31/22 10:02 Resp 16 05/31/22 10:02 BP 152/83 H 05/31/22 10:02 Pulse Ox 96 05/31/22 10:02 O2 Del Method 05/31/22 10:02 BMI result Body Mass Index 39.2 Const: General: cooperative, healthy appearing, comfortable and no acute distress Nutritional Appearance: average body habitus and well nourished Orientation/consciousness: oriented to person and patient oriented x3 Limitations: no limitations HEENT: Head: Yes normal to inspection General nose exam: Normal external nose present Face and sinus: Yes normal facial exam Mouth: Normal oral and palatal mucosa present Throat: Yes posterior oropharynx normal Neck: Neck: Yes normal visual inspection Thyroid: Thyroid normal Resp: Effort & Inspection: normal respiratory effort Auscultation: clear to auscultation bilaterally Cardio: Jugular venous distension: no JVD Rate: regular rate Rhythm: regular rhythm GI: Inspection: Yes normal to inspection Palpation (GI): Soft to palpation, not firm and nontender Back/Spine/Pelvis: Other: Tenderness in the LS spine no deficit in strength no deficit in sensation Neuro: General: oriented to person and patient oriented x3 Cranial nerves: Yes CN's II-XII intact bilaterally Gait exam (Neuro): Other gait observations present (Patient is ambulating with a walker at baseline) Discharge Plan Discharge Clinical Impression: Chronic back pain Patient Disposition: Home, Self-Care Instructions: Back Pain (ED) Prescriptions: New oxycodone 5 mg capsule 5 mg PO Q8H PRN (Reason: pain) Qty: 12 0RF Rx Instructions: Partial Fill upon patient request. No Action metoprolol succinate 50 mg tablet extended release 24 hr 75 mg PO DAILY 30 Days Qty: 45 5RF oxycodone 10 mg tablet 10 mg PO Q4H PRN (Reason: pain) Qty: 10 0RF Rx Instructions: Partial Fill upon patient request. penicillin V potassium 250 mg Tablet 250 mg PO BID albuterol sulfate 90 mcg/actuation Hfa Aerosol Inhaler 2 puff INHALATION Q4-6H PRN (Reason: Respiratory Distress) lamotrigine 100 mg Tablet 250 mg PO BEDTIME colchicine 0.6 mg Tablet 0.6 mg PO DAILY loratadine 10 mg Tablet 10 mg PO DAILY rosuvastatin 10 mg Tablet 10 mg PO DAILY duloxetine 60 mg Capsule,Delayed Release(Dr/Ec) 60 mg PO DAILY Rx Instructions: TAKES TOGETHER WITH 40 MG CAPSULE duloxetine 40 mg Capsule, Delayed Rel Sprinkle 40 mg PO DAILY Rx Instructions: TAKES TOGETHER WITH 60 MG CAPSULE warfarin [Jantoven] 6 mg Tablet 6 mg PO DAILY@1800 Qty: 30 0RF digoxin 125 mcg (0.125 mg) Tablet 0.125 mg PO Q2D Qty: 14 0RF nitrofurantoin monohyd/m-cryst 100 mg capsule 100 mg PO BID Spiriva Respimat 1.25 mcg/actuation mist 2 puff inhalation DAILY ropinirole 0.5 mg tablet 0.5 mg PO TID Referrals: Eulogio Nickerson MD [Primary Care Provider] - 3 days Interventions: ED Discharge Assessment Last Done: 05/31/22 11:22 Discharge Date/Time: 05/31/22 11:24
[2022-05-31] MEDS: oxyCODONE HCl Immed Release 5 MG TABLET 10 MG PO (11:10)
== END 2022-05-31 11:24 | disposition home or self-care (01) ==
PROVIDERS: Emergency Provider Emergency Medicine; PCP Family Medicine
DX: G89.29 Other chronic pain (principal); M54.50 Low back pain, unspecified; E11.9 Type 2 diabetes mellitus without complications; I10 Essential (primary) hypertension; I48.92 Unspecified atrial flutter; E78.5 Hyperlipidemia, unspecified; F17.210 Nicotine dependence, cigarettes, uncomplicated; Z86.718 Personal history of other venous thrombosis and embolism; Z79.02 Long term (current) use of antithrombotics/antiplatelets; Z79.899 Other long term (current) drug therapy; Z79.01 Long term (current) use of anticoagulants
CPT/HCPCS: 99283

== ENCOUNTER 2022-07-01 05:25 | Emergency (ER) | payer OTHER, SELFPAY ==
[2022-07-01] VITALS (8 sets, daily range): BP systolic 111–137; BP diastolic 59–94; PULSE 94–150; RESP 13–116; TEMP 36.5–36.6; O2SAT 95–100; BMI 37.2
--- NOTE | 2022-07-01 | ECG_ITS ---
Test Reason : BACK PAIN/NECK Blood Pressure : / mmHG Vent. Rate : 131 BPM Atrial Rate : 277 BPM P-R Int : 000 ms QRS Dur : 110 ms QT Int : 382 ms P-R-T Axes : 086 003 -66 degrees QTc Int : 564 ms Atrial flutter with variable A-V block ST & T wave abnormality, consider anterolateral ischemia Abnormal ECG When compared to the previous EKG of Atrial flutter has replaced Normal sinus rhythm Referred By: Generic ED Physician Electronically Signed By:KERON ARTHUR MD
--- NOTE | 2022-07-01 | ECG_ITS ---
Test Reason : ATRIAL FIBRILATION Blood Pressure : / mmHG Vent. Rate : 083 BPM Atrial Rate : 300 BPM P-R Int : 000 ms QRS Dur : 076 ms QT Int : 376 ms P-R-T Axes : 000 010 085 degrees QTc Int : 441 ms Atrial flutter with variable A-V block Low voltage QRS Nonspecific ST and T wave abnormality Abnormal ECG When compared with ECG of 01-JUL-2022 05:46, Vent. rate has decreased Referred By: Kyle Londono Electronically Signed By:KERON ARTHUR MD
[2022-07-01 06:07] LABS: MANUAL DIFF FLAG NO
[2022-07-01 06:08] LABS: Basophils Absolute Auto 0.1 X10*3/uL (0.0-0.2); Basophils Percent Auto 0.8 % (0-2); Eosinophils Absolute Auto 0.4 X10*3/uL (0.0-0.4); Eosinophils Percent Auto 4.4 % (0-4); Hematocrit 47.5 % (37.0-47.0); Hemoglobin 15.8 g/dl (12.0-16.0); Imm Gran Abs Auto 0.02 X10*3/uL (0.00-0.03); Imm Gran Pct Auto 0.3 % (0.0-0.4); Lymphocytes Absolute Auto 3.8 X10*3/uL (1.2-4.9); Mean Corpuscular HGB Conc 33.3 g/dl (31.0-35.0); Mean Corpuscular Hemoglobin 29.5 pg (27.0-33.0); Mean Corpuscular Volume 88.8 fL (80.0-98.0); Mean Platelet Volume 10.1 fL (9.4-12.3); Monocytes Absolute Auto 0.7 X10*3/uL (0.1-1.2); Neutrophils Percent Auto 37.5 % (45-73); Platelet Count 213 X10*3/uL (160-400); Red Blood Count 5.35 X10*6/uL (4.20-5.50); Red Cell Distribution Width 15.1 % (11.0-16.0); White Blood Count 7.9 X10*3/uL (4.8-10.8)
--- NOTE | 2022-07-01 06:10 | PC.NURSE ---
Pt presenting to ER with 10/10 chronic back pain. Pt does not have prescribed pain medication at home. EKG in triage showed A-Flutter. Pt was placed on a school lunch monitor upon arrival in room 6. Labs were drawn and sent. During my assessment and history, pt stated she has thoughts of hurting herself, due to how much pain she is chronically in. She denied a plan. Pt stated she would like to talk to someone from our CARE team about how she is feeling. MD aware. Pt will be given pain medication, per MAR, and will continue to be monitored.
[2022-07-01] MEDS: Morphine Sulfate 2 MG/ML CARTRIDGE 1 MG IVPUSH (06:23)
[2022-07-01 06:28] LABS: Alanine Aminotransferase 19 U/L (0-31); Albumin Level 4.2 g/dL (3.5-5.0); Alkaline Phosphatase 95 U/L (39-117); Anion Gap 11 (12-20); Aspartate Amino Transferase 20 U/L (5-31); Bilirubin Total 0.5 mg/dL (0.0-1.0); Blood Urea Nitrogen 10 mg/dL (9-16); Carbon Dioxide 32 mmol/L (22-29); Chloride 105 mmol/L (96-108); Creatinine Clr Calc Pharmacy 88.6; Estimated Glomerular Filt Rate > 60; Glucose Random 94 mg/dL (60-115); Potassium 3.9 mmol/L (3.3-5.1); Sodium 144 mmol/L (135-145); Total Protein 7.6 g/dL (6.5-8.0); Troponin-I High Sensitivity 6.4 ng/L (<3.5-17.0)
--- NOTE | 2022-07-01 06:53 | ED.GENADULT ---
HPI - General Adult General Chief complaint: Back Pain/Injury Stated complaint: neck/lumbar pain Time Seen by Provider: 07/01/22 06:42 Source: patient Mode of arrival: EMS History of Present Illness HPI narrative: 48-year-old female who presents to the emergency department this morning complaining of back pain and neck pain. Patient states this is a chronic problem, and she is supposed to have some sort of surgery to repair the issues. Pain was worse this morning which is why she came into the hospital. The patient was noted to have significant tachycardia upon arrival. She does have a history of atrial fibrillation and atrial flutter. Is on Coumadin and digoxin as well as metoprolol for rate control. She is unaware of her rapid heart rate. Onset (ago): week(s) Related Data Home Medications Medication Instructions Recorded Confirmed albuterol sulfate 90 mcg/actuation 2 puff inhalation Q4-6H PRN 11/24/21 05/01/22 aerosol inhaler Respiratory Distress colchicine 0.6 mg tablet 0.6 mg PO DAILY 11/24/21 05/01/22 duloxetine 40 mg capsule,delayed 40 mg PO DAILY 11/24/21 05/01/22 release sprinkle duloxetine 60 mg capsule,delayed 60 mg PO DAILY 11/24/21 05/01/22 release lamotrigine 100 mg tablet 250 mg PO BEDTIME 11/24/21 05/01/22 loratadine 10 mg tablet 10 mg PO DAILY 11/24/21 05/01/22 penicillin V potassium 250 mg 250 mg PO BID 11/24/21 05/01/22 tablet rosuvastatin 10 mg tablet 10 mg PO DAILY 11/24/21 05/01/22 nitrofurantoin 100 mg PO BID 12/31/21 05/01/22 monohydrate/macrocrystals 100 mg capsule tiotropium bromide 1.25 2 puff inhalation DAILY 12/31/21 05/01/22 mcg/actuation mist for inhalation (Spiriva Respimat) ropinirole 0.5 mg tablet 0.5 mg PO TID 05/01/22 05/01/22 Previous Rx's Medication Instructions Recorded digoxin 125 mcg (0.125 mg) tablet 0.125 mg PO Q2D #14 tabs 11/27/21 warfarin 6 mg tablet (Jantoven) 6 mg PO DAILY@1800 #30 tabs 11/27/21 metoprolol succinate 50 mg 75 mg PO DAILY 30 days #45 tabs 01/06/22 tablet,extended release 24 hr oxycodone 10 mg tablet 10 mg PO Q4H PRN pain #10 tabs 05/03/22 oxycodone 5 mg capsule 5 mg PO Q8H PRN pain #12 caps 05/31/22 Allergies Allergy/AdvReac Type Severity Reaction Status Date / Time adhesive Allergy Rash Verified 05/01/22 13:57 Review of Systems Review of Systems: Constitutional: Denies chills and Denies fever(s) Eyes: Denies blurry vision and Denies diplopia ENT: Denies dizziness, Denies nasal congestion and Denies sore throat Cardiovascular: Denies chest pain, Denies syncope and Denies rapid heart rate Respiratory: Denies cough and Denies wheezing Gastrointestinal: Denies diarrhea, Denies nausea and Denies vomiting Genitourinary: No dysuria, frequency or urgency. Musculoskeletal: admits to back pain and Denies myalgias Neuro: Denies dizziness and Denies syncope Allergic/Immunologic: Denies wheezing, rash Neurologic: Denies Sensory deficit (Neuro) [facility] Past Medical History Medical History Arthritis COPD (chronic obstructive pulmonary disease) Diabetes Disc disorder of cervical region Disc disorder of lumbar region DVT of axillary vein, acute HLD (hyperlipidemia) HTN (hypertension) Scoliosis Surgical History Previous back surgery Family History Family History Father Stroke Other Diabetes Social History Social History Household Members: Children Household Members Other:: daughter Housing: Condominium Do you presently have visiting nurse or other home services: 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) Alcohol intake: never Patient Tobacco Use Status: Current everyday Tobacco user Tobacco use type: Cigarette Cigarette Packs Per Day: 1 Cigarettes Per Day: 20.0 Smoked in Last 30 Days: Yes Use of substances other than those prescribed or required for medical reasons: No Advance Directives: No Advance Directives Information Provided: No Advance Directives Date on File: 11/24/21 Patient : No service: No Physical Exam ED Vital Signs: Vital Signs - 24 hr 07/01/22 05:33 07/01/22 06:04 07/01/22 06:48 Temperature 97.8 F 97.7 F Pulse Rate 106 H 150 H 144 H Respiratory Rate 16 14 13 Blood Pressure 124/68 115/70 124/88 Pulse Oximetry 100 98 96 Oxygen Delivery Method Room Air Room Air Room Air 07/01/22 07:40 Temperature Pulse Rate 120 H Respiratory Rate 18 Blood Pressure 113/59 L Pulse Oximetry 97 Oxygen Delivery Method Room Air BMI result Body Mass Index 37.2 Vital signs noted, heart rate elevated 150 Const General: cooperative and acute distress mild Nutritional Appearance: overweight Orientation/consciousness: patient oriented x3 HENMT Head: Yes normal to inspection, Yes normocephalic and Yes atraumatic Ears: external ears normal General nose exam: Normal external nose present Face and sinus: Yes normal facial exam Eyes Conjunctivae: conjunctivae normal Sclerae: sclerae normal Pupils: Equal, round and reactive pupils present EOM: EOMs intact bilaterally Neck Neck: Yes normal visual inspection and Yes full ROM Chest Chest palpation & inspection: normal inspection of the chest Resp Effort & Inspection: normal respiratory effort Auscultation: clear to auscultation bilaterally Cardio Rate: tachycardic Rhythm: abnormal rhythm irregularly irregular GI Inspection: Yes normal to inspection Palpation (GI): nontender Back/Spine/Pelvis Cervical Spine: pain with cervical ROM Skin General skin exam: no rashes or lesions noted and no jaundice Neuro General: patient oriented x3 Cranial nerves: Yes CN's II-XII intact bilaterally and Yes Equal, round and reactive pupils present Motor exam (neuro): 5/5 motor strength present throughout Sensory Exam: No Sensory deficit (Neuro) Medications Administered Generic Name Dose Route Start Last Admin Trade Name Freq PRN Reason Stop Dose Admin Metoprolol Tartrate 5 mg 07/01/22 06:45 07/01/22 07:42 Metoprolol Tartrate 5 Mg/5 Ml Vial IVPUSH 5 mg Q5MX3 PRN Administration HR>105 Discontinued Medications Generic Name Dose Route Start Last Admin Trade Name Freq PRN Reason Stop Dose Admin Morphine Sulfate 1 mg 07/01/22 06:18 07/01/22 06:23 Morphine Sulfate 2 Mg/Ml Cartridge IVPUSH 07/01/22 06:19 1 mg ONCE ONE Administration Protocol Medical Decision Making Medical Decision Making Independent interpretation of EKG, rhythm strip, radiology study: Independent interp EKG,rhythm strip, radiology study I performed an independent interpretation of the: EKG My interpretation is atrial flutter at 133. QT interval slightly long, TX interval indeterminate, normal axis Discharge Plan Discharge Prescriptions: No Action metoprolol succinate 50 mg tablet extended release 24 hr 75 mg PO DAILY 30 Days Qty: 45 5RF oxycodone 10 mg tablet 10 mg PO Q4H PRN (Reason: pain) Qty: 10 0RF Rx Instructions: Partial Fill upon patient request. penicillin V potassium 250 mg Tablet 250 mg PO BID albuterol sulfate 90 mcg/actuation Hfa Aerosol Inhaler 2 puff INHALATION Q4-6H PRN (Reason: Respiratory Distress) lamotrigine 100 mg Tablet 250 mg PO BEDTIME colchicine 0.6 mg Tablet 0.6 mg PO DAILY loratadine 10 mg Tablet 10 mg PO DAILY rosuvastatin 10 mg Tablet 10 mg PO DAILY duloxetine 60 mg Capsule,Delayed Release(Dr/Ec) 60 mg PO DAILY Rx Instructions: TAKES TOGETHER WITH 40 MG CAPSULE duloxetine 40 mg Capsule, Delayed Rel Sprinkle 40 mg PO DAILY Rx Instructions: TAKES TOGETHER WITH 60 MG CAPSULE warfarin [Jantoven] 6 mg Tablet 6 mg PO DAILY@1800 Qty: 30 0RF digoxin 125 mcg (0.125 mg) Tablet 0.125 mg PO Q2D Qty: 14 0RF nitrofurantoin monohyd/m-cryst 100 mg capsule 100 mg PO BID oxycodone 5 mg capsule 5 mg PO Q8H PRN (Reason: pain) Qty: 12 0RF Rx Instructions: Partial Fill upon patient request. Spiriva Respimat 1.25 mcg/actuation mist 2 puff inhalation DAILY ropinirole 0.5 mg tablet 0.5 mg PO TID
[2022-07-01] MEDS: Metoprolol Tartrate 5 MG/5 ML VIAL IVPUSH ×2 (07:20→07:42)
[2022-07-01 07:42] LABS: Prothrombin Time 23.3 SEC (10.0-13.1)
--- NOTE | 2022-07-01 07:45 | PC.NURSE ---
metoprolol 5mg given x2 for a flutter. pt remains in a flutter. pt not converting. BP drop - notified Dr. Londono intention not to give 3rd dose of metoprolol.
[2022-07-01 08:00] LABS: Digoxin < 0.2 ng/mL (0.8-2.0)
[2022-07-01] MEDS: Digoxin 0.5 MG/2 ML AMPUL IVPUSH (09:24)
--- NOTE | 2022-07-01 09:30 | PC.NURSE ---
Digoxin ordered and given per Sep, pt remains in a flutter, hr one-teens, BP stable. MD Londono made aware. no new orders at this time
--- NOTE | 2022-07-01 11:14 | PC.NURSE ---
Md Londono to reach out to cardiology department - pt not wanting to be cardioverted.
[2022-07-01] MEDS: Metoprolol Succinate ER 50 MG TAB.ER.24H PO (11:46)
== END 2022-07-01 15:28 | disposition home or self-care (01) ==
PROVIDERS: Emergency Provider Emergency Medicine; PCP Family Medicine
DX: M54.2 Cervicalgia (principal); M54.50 Low back pain, unspecified; I48.91 Unspecified atrial fibrillation; Z79.899 Other long term (current) drug therapy; F17.210 Nicotine dependence, cigarettes, uncomplicated; Z71.6 Tobacco abuse counseling
CPT/HCPCS: 36415; 80053; 80162; 84484; 85025; 85610; 93005; 96374; 96375; 99284; 99285; J1160; J2270

== ENCOUNTER → 2022-07-09 14:44 | Outpatient (BNVA) | payer OTHER, SELFPAY | PROVIDERS: PCP Family Medicine; Visit Provider Nurse Practitioner Family | DX: Z01.810 Encounter for preprocedural cardiovascular examination (principal); I48.92 Unspecified atrial flutter; R93.1 Abnormal findings on diagnostic imaging of heart and coronary circulation; I10 Essential (primary) hypertension; Z79.01 Long term (current) use of anticoagulants; Z79.899 Other long term (current) drug therapy | CPT/HCPCS: 93005; 99212 ==

== ENCOUNTER 2022-09-05 17:56 | Emergency (ER) | payer OTHER, SELFPAY ==
[2022-09-05 18:46] VITALS: BP 150/66; PULSE 67; RESP 18; TEMP 36.8; O2SAT 99; BMI 36.3
--- NOTE | 2022-09-05 18:47 | ED_ITS ---
HPI - Back Pain/Injury General Chief Complaint: Back Pain/Injury Stated Complaint: back lumbar pain with spams Source: patient Mode of arrival: ambulatory Limitations: no limitations History of Present Illness HPI Narrative: 56yoF presenting to the ED with complaints of acute on chronic lower back pain worse today.? Patient reports her primary care provider refuses to give her any pain medications.? She has been prescribed other medications in the past for pain from here multiple other providers.? Reports she recently had knee surgery and was prescribed hydromorphone.? Although reports she does not have that at home any longer she only was prescribed a short course.? Reports she has had multiple MRIs in the past. MD elicited complaint: back pain Pertinent past history: prior back pain Onset (ago): day(s) (For years although worse today) Timing: constant and progressively worsening Severity: moderate Similar Symptoms Previously: Yes Quality: aching Location: lumbar spine Radiation: none Exacerbating factors: movement, supine positioning, sitting upright, walking and lifting Relieving factors: none Context: unknown Associated symptoms: denies other symptoms Related Data Home Medications Medication Instructions Recorded Confirmed albuterol sulfate 90 mcg/actuation 2 puff inhalation Q4-6H PRN 11/24/21 07/09/22 aerosol inhaler Respiratory Distress colchicine 0.6 mg tablet 0.6 mg PO DAILY 11/24/21 07/09/22 duloxetine 40 mg capsule,delayed 40 mg PO DAILY 11/24/21 05/01/22 release sprinkle duloxetine 60 mg capsule,delayed 60 mg PO DAILY 11/24/21 07/09/22 release lamotrigine 100 mg tablet 250 mg PO BEDTIME 11/24/21 07/09/22 loratadine 10 mg tablet 10 mg PO DAILY 11/24/21 07/09/22 penicillin V potassium 250 mg 250 mg PO BID 11/24/21 07/09/22 tablet rosuvastatin 10 mg tablet 10 mg PO DAILY 11/24/21 07/09/22 nitrofurantoin 100 mg PO BID 12/31/21 07/09/22 monohydrate/macrocrystals 100 mg capsule ropinirole 0.5 mg tablet 0.5 mg PO TID 05/01/22 07/09/22 Previous Rx's Medication Instructions Recorded warfarin 6 mg tablet (Jantoven) 6 mg PO DAILY@1800 #30 tabs 11/27/21 oxycodone 10 mg tablet 10 mg PO Q4H PRN pain #10 tabs 05/03/22 oxycodone 5 mg capsule 5 mg PO Q8H PRN pain #12 caps 05/31/22 oxycodone 5 mg tablet 5 mg PO Q8H PRN pain #7 tabs 07/01/22 metoprolol succinate 50 mg 75 mg PO DAILY #45 tabs 07/04/22 tablet,extended release 24 hr dronedarone 400 mg tablet (Multaq) 400 mg PO BID #10 tabs 08/15/22 Allergies Allergy/AdvReac Type Severity Reaction Status Date / Time adhesive Allergy Rash Verified 05/01/22 13:57 Review of Systems Review of Systems: Constitutional : No trauma, No Weight loss, No Fever, No Chills, ENT/Mouth : No Hearing loss, No Ear Pain, No Nasal Congestion, No Sinus Pain, No Hoarseness, No sore throat, No Rhinorrhea, No Swallowing Difficulty Cardiovascular : No Chest Pain, No SOB Respiratory : No Cough, No Dyspnea Gastrointestinal : No Nausea, No Vomiting, No Diarrhea, No abdominal Pain, No Hematochezia, No Melena Genitourinary : No Dysuria, No Urinary Frequency, No Hematuria, No Urinary or Bowel Incontinence/retention Musculoskeletal : + Back pain, No neck pain, No joint stiffness, No joint swelling Skin : No Skin Lesions, No rash or signs of infection Neuro : No Weakness, No radiation, No Numbness, No Paresthesias, No headache, no loss of bowel or bladder incontinence, no saddle anesthesia, Focal weakness, No radiation Denies history of IV drug usage. Yes all other systems are reviewed and are negative [facility] Past Medical History Attestation statement: The following information was validated with the patient. 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 Blood pressure normal. Heart rate normal. Respiration rate normal. Temperature normal. Oxygen saturation normal. Appearance: Alert. Oriented X3. No acute distress. Head: Normal external exam. Normocephalic. Atraumatic. No Han signs noted. No raccoon eyes noted Eyes: PERRLA. EOMI. Conjunctiva and sclera normal. Eyelids normal. ENT: EAC normal. TM's Normal. Pharynx normal. Uvula midline. Moist mucous membranes. No trismus noted. No drooling noted. No muffled voice noted. Neck: Normal inspection. Neck supple. FROM. No adenopathy. Thyroid Normal. No meningeal signs. No neck mass noted. CVS: Normal heart rate and rhythm. Heart sound normal. No murmurs noted. Pulses normal throughout. Respiratory: No respiratory distress. Painless inspiration. Breath sounds normal. No wheezes/rales/rhonchi noted. Chest nontender. No accessory muscle usage noted or decreased air movement noted. Abdomen: Soft and nontender. Bowel sounds normal in all 4 quadrants. No distention noted. No organomegaly noted. No visible injury noted. Back: No CVA tenderness. Full range of motion noted. No obvious deformities, or edema. Mild para-spinal muscular tenderness from lumbar region to coccyx. Full ROM in back and lower extremities. 5/5 strength hip extension/flexion, abduction, adduction. Mild Lumbar pain with hip flexion against resistance. Straight leg raise test negative on right; Straight leg raise test negative on left; Reflexes normal ankle and knee bilaterally; EHL motor strength normal bilaterally. No rashes/lesion/induration/fluctuance or signs infection noted. Skin: Skin warm and dry. Normal skin color. Normal skin turgor. No rashes/lesions/lacerations noted. Extremities: No lower extremity edema. Extremities exhibit normal range of motion. Extremities nontender. Neuro: Oriented X 3. No motor deficit. No sensory deficit. Reflexes normal. Patient has a normal steady gait. Course Course Course Narrative: RME- 18:50PM - 56yoF presenting to the ED with complaints of acute on chronic lower back pain worse today. Patient reports her primary care provider refuses to give her any pain medications. She has been prescribed other medications in the past for pain from here multiple other providers. Reports she recently had knee surgery and was prescribed hydromorphone. Although reports she does not have that at home any longer she only was prescribed a short course. Reports she has had multiple MRIs in the past. Plan: Will obtain UA and drugs of abuse screen. Patient will be seen in emergency minor care. Reevaluation(s) Reevaluation #1: Patient ended up eloping Discharge Plan Discharge Clinical Impression: Chronic back pain Patient Disposition: Elopement Prescriptions: No Action metoprolol succinate 50 mg tablet extended release 24 hr 75 mg PO DAILY Qty: 45 4RF Multaq 400 mg tablet 400 mg PO BID Qty: 10 0RF Rx Instructions: must administer with a meal/food oxycodone 10 mg tablet 10 mg PO Q4H PRN (Reason: pain) Qty: 10 0RF Rx Instructions: Partial Fill upon patient request. oxycodone 5 mg tablet 5 mg PO Q8H PRN (Reason: pain) Qty: 7 0RF Rx Instructions: Partial Fill upon patient request. penicillin V potassium 250 mg Tablet 250 mg PO BID albuterol sulfate 90 mcg/actuation Hfa Aerosol Inhaler 2 puff INHALATION Q4-6H PRN (Reason: Respiratory Distress) lamotrigine 100 mg Tablet 250 mg PO BEDTIME colchicine 0.6 mg Tablet 0.6 mg PO DAILY loratadine 10 mg Tablet 10 mg PO DAILY rosuvastatin 10 mg Tablet 10 mg PO DAILY duloxetine 60 mg Capsule,Delayed Release(Dr/Ec) 60 mg PO DAILY Rx Instructions: TAKES TOGETHER WITH 40 MG CAPSULE duloxetine 40 mg Capsule, Delayed Rel Sprinkle 40 mg PO DAILY Rx Instructions: TAKES TOGETHER WITH 60 MG CAPSULE warfarin [Jantoven] 6 mg Tablet 6 mg PO DAILY@1800 Qty: 30 0RF nitrofurantoin monohyd/m-cryst 100 mg capsule 100 mg PO BID oxycodone 5 mg capsule 5 mg PO Q8H PRN (Reason: pain) Qty: 12 0RF Rx Instructions: Partial Fill upon patient request. ropinirole 0.5 mg tablet 0.5 mg PO TID Discharge Date/Time: 09/05/22 22:32
== END 2022-09-05 22:32 | disposition left against medical advice (07) ==
LOC: HO.ED 22:12
PROVIDERS: Emergency Provider Emergency Medicine
DX: M54.50 Low back pain, unspecified (principal); F17.210 Nicotine dependence, cigarettes, uncomplicated; Z71.6 Tobacco abuse counseling; Z79.899 Other long term (current) drug therapy
CPT/HCPCS: 99281

== ENCOUNTER → 2022-09-29 14:37 | Outpatient (BNVA) | payer OTHER, SELFPAY | PROVIDERS: PCP Family Medicine; Referring Provider Family Medicine; Visit Provider Internal Medicine Cardiovascular Disease | DX: I48.92 Unspecified atrial flutter (principal); I10 Essential (primary) hypertension; Z79.899 Other long term (current) drug therapy | CPT/HCPCS: 93005; 99212 ==

== ENCOUNTER 2022-12-13 03:32 | Emergency (ER) | payer OTHER, SELFPAY ==
[2022-12-13 03:37] VITALS: BP 138/92; PULSE 130; RESP 18; TEMP 36.6; O2SAT 100; BMI 43.3
[2022-12-13 04:49] LABS: Basophils Absolute Auto 0.1 X10*3/uL (0.0-0.2); Basophils Percent Auto 0.6 % (0-2); Eosinophils Absolute Auto 0.2 X10*3/uL (0.0-0.4); Eosinophils Percent Auto 1.8 % (0-4); Hematocrit 44.3 % (37.0-47.0); Hemoglobin 14.2 g/dl (12.0-16.0); Imm Gran Abs Auto 0.02 X10*3/uL (0.00-0.03); Imm Gran Pct Auto 0.2 % (0.0-0.4); Lymphocytes Absolute Auto 5.1 X10*3/uL (1.2-4.9); Lymphocytes Percent Auto 52.9 % (20-40); MANUAL DIFF FLAG SCAN; Mean Corpuscular HGB Conc 32.1 g/dl (31.0-35.0); Mean Corpuscular Hemoglobin 27.8 pg (27.0-33.0); Mean Corpuscular Volume 86.9 fL (80.0-98.0); Mean Platelet Volume 10.4 fL (9.4-12.3); Monocytes Absolute Auto 0.7 X10*3/uL (0.1-1.2); Monocytes Percent Auto 6.8 % (2-11); Neutrophils Absolute Auto 3.7 x10*3/uL (2.0-8.3); Neutrophils Percent Auto 37.7 % (45-73); Platelet Count 222 X10*3/uL (160-400); Red Cell Distribution Width 17.2 % (11.0-16.0); SCAN SMEAR FLAG 1; White Blood Count 9.7 X10*3/uL (4.8-10.8)
[2022-12-13 05:07] LABS: SLIDE REVIEW VERIFIED
[2022-12-13 05:17] LABS: Alanine Aminotransferase 21 U/L (0-31); Albumin Level 3.6 g/dL (3.5-5.0); Alkaline Phosphatase 79 U/L (39-117); Anion Gap 15 (12-20); Aspartate Amino Transferase 19 U/L (5-31); Bilirubin Total 0.7 mg/dL (0.0-1.0); Blood Urea Nitrogen 11 mg/dL (9-16); Calcium 9.3 mg/dL (8.4-10.2); Carbon Dioxide 28 mmol/L (22-29); Chloride 105 mmol/L (96-108); Creatinine Clr Calc Pharmacy 99.7; Estimated Glomerular Filt Rate > 60; Glucose Random 156 mg/dL (60-115); Potassium 4.6 mmol/L (3.3-5.1); Sodium 143 mmol/L (135-145); Total Protein 6.8 g/dL (6.5-8.0)
[2022-12-13 05:48] LABS: Appearance Urine Cloudy; Color Urine Dark Yellow; Glucose Urine UA 100 mg/dL (Negative); Leukocyte Esterase Urine Trace (Negative); Nitrite Urine Negative (Negative); PH 5.5 (5.0-9.0); Specific Gravity - Urine >= 1.030 (1.005-1.025); UMIC TRIGGER UACC YES; Urine Blood Negative (Negative); Urine Ketones Trace mg/dL (Negative); Urine Protein 30 (1+) mg/dL (Neg-Trace)
[2022-12-13 05:53] LABS: Bacteria Urine None Seen (None Seen); Hyaline Casts Urine 0-2 /LPF (0-2); WBC Urine 0-5 /HPF (0-5)
--- NOTE | 2022-12-13 06:46 | ED_ITS ---
HPI - General Adult General Chief complaint: Back Pain/Injury Stated complaint: Back pain Time Seen by Provider: 12/13/22 06:38 Source: patient Mode of arrival: ambulatory Limitations: no limitations History of Present Illness HPI narrative: Patient is a 56-year-old female with history of chronic back pain for the past 20 years presenting with lower back pain. She states she is currently being treated by [facility]. She reports she was there 2-3 weeks ago and they attempted injections which were unsuccessful. She reports having a CT which revealed a bone spur. She states that last night the pain was so severe that she was unable to sleep. She reports that the pain radiates down both legs and that she has numbness to the lateral aspect of her left upper leg. She states that she did not take any medications at home because ?nothing works. ? She reports baseline urinary incontinence for the past 7 years, denies any saddle anesthesia, bowel incontinence. She denies any recent fevers. She denies any urinary retention or other urinary symptoms. She reports that she had a spinal nerve stimulator placed in 2011 which was removed shortly thereafter as it did not decrease her pain. She denies any recent falls or any other trauma. Onset (ago): year(s) Location: back Radiation: extremity Severity: severe Quality: burning Pain Consistency: constant Relieving factors: none Exacerbating factors: movement Associated symptoms: denies other symptoms Treatments prior to arrival: none Related Data Home Medications Medication Instructions Recorded Confirmed albuterol sulfate 90 mcg/actuation 2 puff inhalation Q4-6H PRN 11/24/21 09/29/22 aerosol inhaler Respiratory Distress colchicine 0.6 mg tablet 0.6 mg PO DAILY 11/24/21 09/29/22 duloxetine 40 mg capsule,delayed 40 mg PO DAILY 11/24/21 09/29/22 release sprinkle duloxetine 60 mg capsule,delayed 60 mg PO DAILY 11/24/21 09/29/22 release lamotrigine 100 mg tablet 250 mg PO BEDTIME 11/24/21 09/29/22 loratadine 10 mg tablet 10 mg PO DAILY 11/24/21 09/29/22 penicillin V potassium 250 mg 250 mg PO BID 11/24/21 09/29/22 tablet rosuvastatin 10 mg tablet 10 mg PO DAILY 11/24/21 09/29/22 nitrofurantoin 100 mg PO BID 12/31/21 09/29/22 monohydrate/macrocrystals 100 mg capsule ropinirole 0.5 mg tablet 0.5 mg PO TID 05/01/22 09/29/22 budesonide-formoterol HFA 80 2 puff inhalation BID 09/29/22 09/29/22 mcg-4.5 mcg/actuation aerosol inhaler (Symbicort) Previous Rx's Medication Instructions Recorded warfarin 6 mg tablet (Jantoven) 6 mg PO DAILY@1800 #30 tabs 11/27/21 oxycodone 10 mg tablet 10 mg PO Q4H PRN pain #10 tabs 05/03/22 oxycodone 5 mg tablet 5 mg PO Q8H PRN pain #7 tabs 07/01/22 dronedarone 400 mg tablet (Multaq) 400 mg PO BID #10 tabs 08/15/22 metoprolol succinate 50 mg 75 mg PO BID #100 tabs 10/22/22 tablet,extended release 24 hr cyclobenzaprine 5 mg tablet 5 mg PO TID PRN muscle spasm #10 12/13/22 tabs lidocaine 5 % topical patch 1 patch topical DAILY #15 ea 12/13/22 Allergies Allergy/AdvReac Type Severity Reaction Status Date / Time adhesive Allergy Rash Verified 09/29/22 14:58 Review of Systems Review of Systems: Yes all other systems are reviewed and are negative Constitutional: Constitutional: Denies chills, Denies excessive sweating, Denies fever(s) and Denies weakness Eyes: Eyes: Reports no additional eye complaints ENT: Reports system reviewed and no additional complaints, except as documented Cardiovascular: Cardiovascular: Reports no additional cardiovascular complaints Respiratory: Respiratory: Reports no additional respiratory complaints Gastrointestinal: Gastrointestinal: Reports no additional gastrointestinal complaints Genitourinary: Genitourinary: Reports no additional female genitourinary complaints Musculoskeletal: Musculoskeletal: Reports back pain, Reports numbness, Reports radiating pain into limb and Reports tingling Integumentary/Breasts: Skin/Breast: Reports system reviewed and no additional complaints, except as docu Neurologic: Reports system reviewed and no additional complaints, except as documented, Reports numbness, Reports tingling and Denies weakness Psychiatric: Psychiatric: Reports no additional psychiatric complaints Endocrine: Endocrine: Denies excessive sweating Hematologic/Lymphatic: Hematologic/Lymphatic: Reports no additional hematologic/lymphatic complaints Allergic/Immunologic: Allergic/Immunologic: Reports no additional allergic/immunologic complaints [facility] Past Medical History Medical History (Updated 12/13/22 @ 07:11 by Leyda Zambrano NP) Arthritis COPD (chronic obstructive pulmonary disease) Diabetes Disc disorder of cervical region Disc disorder of lumbar region DVT of axillary vein, acute HLD (hyperlipidemia) HTN (hypertension) Scoliosis Surgical History (Updated 09/29/22 @ 15:02 by NUHA Edwards) Previous back surgery Status post knee replacement Family History Family History Father Stroke Other Diabetes Social History Social History (Updated 09/29/22 @ 15:02 by NUHA Edwards) Household Members: Children Household Members Other:: daughter Housing: Condominium Do you presently have visiting nurse or other home services: Yes ([employer] services) Alcohol intake: former Patient Tobacco Use Status: Current everyday Tobacco user Tobacco use type: Cigarette Cigarette Packs Per Day: 1 Cigarettes Per Day: 20.0 Years Smoked: 40 +/- Smoked in Last 30 Days: Yes Use of substances other than those prescribed or required for medical reasons: No Advance Directives: Yes Advance Directives on File: Yes Advance Directives Date on File: 11/24/21 service: No Physical Exam ED Vital Signs: Vital Signs - 24 hr 12/13/22 03:37 Temperature 98 F Pulse Rate 130 H Respiratory Rate 18 Blood Pressure 138/92 H Pulse Oximetry 100 Oxygen Delivery Method Room Air BMI result Body Mass Index 43.3 Const General: cooperative and no acute distress Orientation/consciousness: oriented to person, oriented to place, oriented to time and patient oriented x3 Limitations: no limitations HENMT Head: Yes normocephalic and Yes atraumatic Ears: external ears normal General nose exam: Normal external nose present Face and sinus: Yes face symmetric Mouth: oropharynx normal and moist mucous membranes Throat: Yes uvula midline Eyes Pupils: Equal, round and reactive pupils present Neck Neck: Yes normal visual inspection and Yes supple Resp Effort & Inspection: normal respiratory effort and able to speak in complete sentences Auscultation: clear to auscultation bilaterally Cardio Rate: regular rate Rhythm: regular rhythm Heart sounds: S1 normal heart sound present and S2 normal heart sound present GI Palpation (GI): Soft to palpation and nontender Auscultation: normoactive bowel sounds General: Yes no CVA tenderness Back/Spine/Pelvis Back: no CVA tenderness Thoracic/Lumbar Spine: Thoracic/lumbar spine scar(s), pain with thoraco-lumbar ROM, No thoracic spinal tenderness and No lumbar spinal tenderness Skin General skin exam: elasticity normal and turgor normal Neuro General: oriented to person, oriented to place, oriented to time, patient orien yakelin x3, moves all extremities, no focal motor deficits and CN's II-XI intact bilaterally Cranial nerves: Yes Equal, round and reactive pupils present Cognition (Neuro): normal cognition Extrem General: Yes full ROM, Yes no pedal edema and Yes no calf tenderness Right lower extremity: full ROM and normal capillary refill Left lower extremity: full ROM and normal capillary refill Psych Mental Status: mental status grossly normal Affect: normal affect Thought process: Normal thought process present Medications Administered Discontinued Medications Generic Name Dose Route Start Last Admin Trade Name Freq PRN Reason Stop Dose Admin Cyclobenzaprine HCl 10 mg 12/13/22 06:56 12/13/22 07:03 Cyclobenzaprine Hcl 10 Mg Tablet PO 12/13/22 06:57 10 mg ONCE ONE Administration Oxycodone HCl 5 mg 12/13/22 06:56 12/13/22 07:03 Oxycodone Hcl Immed Release 5 Mg Tablet PO 12/13/22 06:57 5 mg ONCE ONE Administration Medical Decision Making Medical Decision Making [facility] Narrative: Patient is a 56-year-old female with history of chronic back pain for the past 20 years presenting with lower back pain. On exam patient is tearful, awake, A+Ox3, normal neurological exam without focal findings, no red flag findings, ambulating independently with steady gait. Basic labs and urinalysis unremarkable and unchanged from baseline. No evidence of cauda equina or spinal epidural abscess. No indication for imaging. Will medicate patient with one dose of oxycodone in the ED and will prescribe short course of Flexeril and lidocaine patches for home, instructed patient to follow up with PCP and [facility] where she is currently being managed for her chronic pa in. Patient is agreeable to this plan, has an adhesive allergy but states she has tolerated lidocaine patches in the past. Differential Diagnosis Differential Diagnoses: The differential diagnosis associated with the presentation includes As above. Admission/Observation Consideration of admission/observation: Escalation of care including admission/observation considered Lab Data MDM Lab Attestation statement: I reviewed the patient's lab results. 12/13/22 04:45 12/13/22 04:45 Labs: Lab Results 12/13/22 12/13/22 12/13/22 Range/Units 04:45 04:45 05:41 WBC 9.7 (4.8-10.8) X10*3/uL RBC 5.10 (4.20-5.50) X10*6/uL Hgb 14.2 (12.0-16.0) g/dl Hct 44.3 (37.0-47.0) % MCV 86.9 (80.0-98.0) fL MCH 27.8 (27.0-33.0) pg MCHC 32.1 (31.0-35.0) g/dl RDW 17.2 H (11.0-16.0) % Plt Count 222 (160-400) X10*3/uL MPV 10.4 (9.4-12.3) fL Immature Gran % (Auto) 0.2 (0.0-0.4) % Neut % (Auto) 37.7 L (45-73) % Lymph % (Auto) 52.9 H (20-40) % [place] % (Auto) 6.8 (2-11) % Eos % (Auto) 1.8 (0-4) % Baso % (Auto) 0.6 (0-2) % Lymph # (Auto) 5.1 H (1.2-4.9) X10*3/uL [place] # (Auto) 0.7 (0.1-1.2) X10*3/uL Eos # (Auto) 0.2 (0.0-0.4) X10*3/uL Baso # (Auto) 0.1 (0.0-0.2) X10*3/uL Abs Immat Gran (auto) 0.02 (0.00-0.03) X10*3/uL Absolute Neuts (auto) 3.7 (2.0-8.3) x10*3/uL Absolute Nucleated RBC 0.000 (0.0-0.012) X10*3/uL Nucleated RBC % (auto) 0.0 (0.0-0.2) /100WBC Smear Tech's Comments VERIFIED Sodium 143 (135-145) mmol/L Potassium 4.6 (3.3-5.1) mmol/L Chloride 105 (96-108) mmol/L Carbon Dioxide 28 (22-29) mmol/L Anion Gap 15 (12-20) BUN 11 (9-16) mg/dL Creatinine 0.79 (0.5-1.4) mg/dL Estim Creat Clear Calc 99.7 Estimated GFR > 60 Random Glucose 156 H (60-115) mg/dL Calcium 9.3 D (8.4-10.2) mg/dL Total Bilirubin 0.7 (0.0-1.0) mg/dL AST 19 (5-31) U/L ALT 21 (0-31) U/L Alkaline Phosphatase 79 (39-117) U/L Total Protein 6.8 (6.5-8.0) g/dL Albumin 3.6 (3.5-5.0) g/dL Urine Color Dark Yellow Urine Appearance Cloudy Urine pH 5.5 (5.0-9.0) Ur Specific [place] >= 1.030 H (1.005-1.025) Urine Protein 30 (1+) H (Neg-Trace) mg/dL Urine Glucose (UA) 100 H (Negative) mg/dL Urine Ketones Trace (Negative) mg/dL Urine Blood Negative (Negative) Urine Nitrite Negative (Negative) Ur Leukocyte Esterase Trace H (Negative) Urine RBC 3-5 H (0-2) /HPF Urine WBC 0-5 (0-5) /HPF Ur Squamous Epith Cells 11-20 (0-2) /HPF Urine Bacteria None Seen (None Seen) Hyaline Casts 0-2 (0-2) /LPF External Record Review External record reviewed: Inpatient record, Office record and Outpatient record Prescription Management I considered prescription management with: Pain Medication (lidocaine patches) and Other (cyclobenzaprine) Chronic Conditions Patient?s care impacted by: Diabetes, Hypertension and Other (chronic back pain) Discharge Plan Discharge Clinical Impression: Chronic bilateral low back pain Patient Disposition: Home, Self-Care Instructions: Pain Management (ED), Chronic Pain (ED) Additional Instructions: You were evaluated in the emergency department today for acute worsening of your chronic back pain. Your evaluation did not show evidence of any conditions requiring emergent treatment at this time. You are being prescribe a short course of Flexeril which is a muscle relaxer you can use up to three times daily as needed for muscle spasms. You are also being prescribed topical lidocaine patches which you can wear for up to 12 hours in a 24 hour period. Please fo llow up with your primary care provider within two days as well as with [facility]. Return to the emergency department if you develop worsening back pain, difficulty walking, fevers, numbness, tingling, incontinence, or any other concerning symptoms. Prescriptions: New cyclobenzaprine 5 mg tablet 5 mg PO TID PRN (Reason: muscle spasm) Qty: 10 0RF lidocaine 5 % adhesive patch,medicated 1 patch topical DAILY Qty: 15 0RF Rx Instructions: leave on most painful area for up to 12 hrs No Action Multaq 400 mg tablet 400 mg PO BID Qty: 10 0RF Rx Instructions: must administer with a meal/food metoprolol succinate 50 mg tablet extended release 24 hr 75 mg PO BID Qty: 100 4RF oxycodone 10 mg tablet 10 mg PO Q4H PRN (Reason: pain) Qty: 10 0RF Rx Instructions: Partial Fill upon patient request. oxycodone 5 mg tablet 5 mg PO Q8H PRN (Reason: pain) Qty: 7 0RF Rx Instructions: Partial Fill upon patient request. penicillin V potassium 250 mg Tablet 250 mg PO BID albuterol sulfate 90 mcg/actuation Hfa Aerosol Inhaler 2 puff INHALATION Q4-6H PRN (Reason: Respiratory Distress) lamotrigine 100 mg Tablet 250 mg PO BEDTIME colchicine 0.6 mg Tablet 0.6 mg PO DAILY loratadine 10 mg Tablet 10 mg PO DAILY rosuvastatin 10 mg Tablet 10 mg PO DAILY duloxetine 60 mg Capsule,Delayed Release(Dr/Ec) 60 mg PO DAILY Rx Instructions: TAKES TOGETHER WITH 40 MG CAPSULE duloxetine 40 mg Capsule, Delayed Rel Sprinkle 40 mg PO DAILY Rx Instructions: TAKES TOGETHER WITH 60 MG CAPSULE warfarin [Jantoven] 6 mg Tablet 6 mg PO DAILY@1800 Qty: 30 0RF nitrofurantoin monohyd/m-cryst 100 mg capsule 100 mg PO BID ropinirole 0.5 mg tablet 0.5 mg PO TID budesonide-formoterol [Symbicort] 80-4.5 mcg/actuation HFA aerosol inhaler 2 puff inhalation BID Interventions: ED Discharge Assessment Last Done: 12/13/22 07:19 Discharge Date/Time: 12/13/22 07:19
--- NOTE | 2022-12-13 07:00 | PC.NURSE ---
Resumed care of patient this morning, provider at bedside currently. Pt reporting chronic back pain, pain medications ordered, pt tearful at bedside.
[2022-12-13] MEDS: Cyclobenzaprine HCl 10 MG TABLET PO (07:03)
[2022-12-13] MEDS: oxyCODONE HCl Immed Release 5 MG TABLET PO (07:03)
== END 2022-12-13 07:19 | disposition home or self-care (01) ==
PROVIDERS: Emergency Provider Emergency Medicine Emergency Medical Services; PCP Family Medicine
DX: G89.29 Other chronic pain (principal); M54.50 Low back pain, unspecified; E78.5 Hyperlipidemia, unspecified; I10 Essential (primary) hypertension; F17.210 Nicotine dependence, cigarettes, uncomplicated; Z79.899 Other long term (current) drug therapy
CPT/HCPCS: 36415; 80053; 81001; 85025; 99283; 99284

== ENCOUNTER 2023-01-02 04:27 | Emergency (ER) | payer OTHER, SELFPAY ==
--- NOTE | ~2023-01-02 | XR_ITS ---
EXAMINATION: XR lumbar spine 2-3V, XR thoracic spine 3V CLINICAL INFORMATION: Fall with pain COMPARISON: 05/03/2022 TECHNIQUE: 2 views of the thoracic spine. 3 views of the lumbar spine. FINDINGS: Thoracic spine: No fracture or subluxation. Vertebral body height and alignment maintained. Mild diffuse disc space narrowing with endplate osteophytes present. The paravertebral soft tissues are unremarkable. The visualized lungs are clear. Aortic calcifications. Lap band noted. Lumbar spine: Scoliotic curvature. No acute fracture. Grade 1 anterolisthesis of L4 on L5. There is disc space narrowing throughout the lumbar spine with diffuse facet arthropathy. Small endplate osteophytes. The sacroiliac joints are symmetric. The sacrum is intact. Normal bowel gas pattern. XR/XR lumbar spine 2-3V IMPRESSION: No acute fracture or malalignment. Mild to moderate multilevel degenerative changes of the thoracolumbar spine.
--- NOTE | ~2023-01-02 | XR_ITS ---
EXAMINATION: XR lumbar spine 2-3V, XR thoracic spine 3V CLINICAL INFORMATION: Fall with pain COMPARISON: 05/03/2022 TECHNIQUE: 2 views of the thoracic spine. 3 views of the lumbar spine. FINDINGS: Thoracic spine: No fracture or subluxation. Vertebral body height and alignment maintained. Mild diffuse disc space narrowing with endplate osteophytes present. The paravertebral soft tissues are unremarkable. The visualized lungs are clear. Aortic calcifications. Lap band noted. Lumbar spine: Scoliotic curvature. No acute fracture. Grade 1 anterolisthesis of L4 on L5. There is disc space narrowing throughout the lumbar spine with diffuse facet arthropathy. Small endplate osteophytes. The sacroiliac joints are symmetric. The sacrum is intact. Normal bowel gas pattern. XR/XR thoracic spine 3V IMPRESSION: No acute fracture or malalignment. Mild to moderate multilevel degenerative changes of the thoracolumbar spine.
--- NOTE | ~2023-01-02 | CT_ITS ---
EXAMINATION: NONCONTRAST HEAD CT NONCONTRAST CERVICAL SPINE CT INDICATION INFORMATION: Multiple falls. On blood thinners. COMPARISON: 05/03/2022 TECHNIQUE: Separate noncontrast CT examinations of the head and cervical spine were performed. Coronal and sagittal images were created for each examination at the technologist workstation. This CT examination was performed using dose optimization techniques as appropriate, variously including the following: *Automated exposure control *Adjustment of mA and/or kV according to patient size (this includes techniques or standardized protocols for targeted exams where dose is matched to indication/reason for exam; i.e. extremities or head) *Use of iterative reconstruction technique DLP: 1516 mGy-cm FINDINGS: Head: There is no evidence of acute intracranial hemorrhage or territorial infarction. No abnormal mass effect or midline shift is seen. Pretty to white matter differentiation is well preserved. No extra-axial fluid collections are identified. No hydrocephalus. Proportional prominence of the ventricles and sulcal spaces is consistent with mild volume loss. Patchy periventricular and deep white matter hypoattenuation is consistent with mild small vessel ischemic changes. No acute osseous or soft tissue abnormality. The mastoid air cells and visualized portions of the paranasal sinuses are well aerated. Cervical spine: Straightening of the normal cervical lordosis. There is otherwise anatomic alignment of the vertebral bodies and posterior elements. The atlantoaxial and atlantooccipital articulations are intact. Vertebral body heights are maintained. There is multilevel intervertebral disc space narrowing with endplate osteophyte formation and facet arthropathy. No evidence of acute fracture. No prevertebral soft tissue swelling. Mild emphysema of the lung apices noted. The thyroid gland is unremarkable. CT/CT cervical spine wo IV con IMPRESSION: 1. No acute intracranial finding. 2. No fracture or malalignment of the cervical spine. Mild degenerative changes.
[2023-01-02 04:34] VITALS: BP 115/67; PULSE 121; RESP 20; TEMP 35.8; O2SAT 100; BMI 43.5
[2023-01-02 04:46] VITALS: BP 134/97; PULSE 84; RESP 18; TEMP 36.4; O2SAT 100
--- NOTE | 2023-01-02 05:04 | ED.BACK ---
HPI - Back Pain/Injury General Chief Complaint: Back Pain/Injury Stated Complaint: Fall on 12/31 Time Seen by Provider: 01/02/23 04:59 Source: patient Mode of arrival: ambulatory Limitations: no limitations History of Present Illness HPI Narrative: Patient comes to the emergency room complaining of a fall. Patient states that in the last week, patient has lost her footing although she uses the walker. Patient fell , landed on her back, complaining of thoracic and lumbar pain. Also complaining of mild headache and acute on chronic neck pain. Patient takes warfarin. Denies any other injuries. The last fall was 48 hours ago Related Data Home Medications Medication Instructions Recorded Confirmed albuterol sulfate 90 mcg/actuation 2 puff inhalation Q4-6H PRN 11/24/21 09/29/22 aerosol inhaler Respiratory Distress colchicine 0.6 mg tablet 0.6 mg PO DAILY 11/24/21 09/29/22 duloxetine 40 mg capsule,delayed 40 mg PO DAILY 11/24/21 09/29/22 release sprinkle duloxetine 60 mg capsule,delayed 60 mg PO DAILY 11/24/21 09/29/22 release lamotrigine 100 mg tablet 250 mg PO BEDTIME 11/24/21 09/29/22 loratadine 10 mg tablet 10 mg PO DAILY 11/24/21 09/29/22 penicillin V potassium 250 mg 250 mg PO BID 11/24/21 09/29/22 tablet rosuvastatin 10 mg tablet 10 mg PO DAILY 11/24/21 09/29/22 nitrofurantoin 100 mg PO BID 12/31/21 09/29/22 monohydrate/macrocrystals 100 mg capsule ropinirole 0.5 mg tablet 0.5 mg PO TID 05/01/22 09/29/22 budesonide-formoterol HFA 80 2 puff inhalation BID 09/29/22 09/29/22 mcg-4.5 mcg/actuation aerosol inhaler (Symbicort) Previous Rx's Medication Instructions Recorded warfarin 6 mg tablet (Jantoven) 6 mg PO DAILY@1800 #30 tabs 11/27/21 oxycodone 10 mg tablet 10 mg PO Q4H PRN pain #10 tabs 05/03/22 oxycodone 5 mg tablet 5 mg PO Q8H PRN pain #7 tabs 07/01/22 dronedarone 400 mg tablet (Multaq) 400 mg PO BID #10 tabs 08/15/22 metoprolol succinate 50 mg 75 mg PO BID #100 tabs 10/22/22 tablet,extended release 24 hr cyclobenzaprine 5 mg tablet 5 mg PO TID PRN muscle spasm #10 12/13/22 tabs lidocaine 5 % topical patch 1 patch topical DAILY #15 ea 12/13/22 tramadol 50 mg tablet 50 mg PO BID PRN pain #6 tabs 01/02/23 Allergies Allergy/AdvReac Type Severity Reaction Status Date / Time adhesive Allergy Rash Verified 09/29/22 14:58 Review of Systems Review of Systems: Constitutional : No Weight loss, No Fever, No Chills, No Night Sweats, No Fatigue, No Malaise ENT/Mouth : No Hearing loss, No Ear Pain, No Nasal Congestion, No Sinus Pain, No Hoarseness, No sore throat, No Rhinorrhea, No Swallowing Difficulty Eyes: No Eye Pain, No Swelling, No Redness, No Foreign Body, No Discharge, No Vision Changes Cardiovascular : No Chest Pain, No SOB, No Dyspnea on Exertion, No Orthopnea, No Edema, No Palpitations Respiratory : No Cough, No Sputum, No Wheezing, No Smoke Exposure, No Dyspnea Gastrointestinal : No Nausea, No Vomiting, No Diarrhea, No Constipation, No abdominal Pain, No Hematochezia, No Melena Genitourinary : no irregular bleeding, No Dysuria, No Urinary Frequency, No Hematuria, No Urinary Incontinence, No Urgency, No Flank Pain, No Urinary Flow Changes, No Hesitancy Musculoskeletal : Complaining of acute on chronic neck pain, thoracic and lumbar pain Skin : No Skin Lesions, No rash Neuro : No Weakness, No Numbness, No Paresthesias, No Loss of Consciousness, No Dizziness, No Headache Psych : No Anxiety/Panic, No Depression, No SI/HI/AH/VH, No Social Issues, Heme/Lymph: No Bruising, No Bleeding,No Lymphadenopathy Endocrine : No Polyuria, No Polydipsia, No Temperature Intolerance [facility] Past Medical History Medical History Arthritis COPD (chronic obstructive pulmonary disease) Diabetes Disc disorder of cervical region Disc disorder of lumbar region DVT of axillary vein, acute HLD (hyperlipidemia) HTN (hypertension) Scoliosis Surgical History Previous back surgery Status post knee replacement Family History Family History Father Stroke Other Diabetes Social History Social History (Updated 09/29/22 @ 15:02 by NUHA Edwards) Household Members: Children Household Members Other:: daughter Housing: Condominium Do you presently have visiting nurse or other home services: Yes ([employer] services) Alcohol intake: never Patient Tobacco Use Status: Current everyday Tobacco user Tobacco use type: Cigarette Cigarette Packs Per Day: 1 Cigarettes Per Day: 20.0 Years Smoked: 40 +/- Smoked in Last 30 Days: Yes Use of substances other than those prescribed or required for medical reasons: No Advance Directives: Yes Advance Directives on File: Yes Advance Directives Date on File: 11/24/21 service: No Physical Exam Vital Signs: Vital Signs: Last Vital Signs Temp 97.6 F 01/02/23 04:46 Pulse 84 01/02/23 04:46 Resp 18 01/02/23 04:46 BP 134/97 H 01/02/23 04:46 Pulse Ox 100 01/02/23 04:46 O2 Del Method Room Air 01/02/23 04:46 BMI result Body Mass Index 43.5 Const: Other: Appearance: Alert. Oriented X3. No acute distress. Eyes: Pupils equal, round and reactive to light. ENT: Pharynx normal. Neck: Normal inspection. Neck supple. No lymph nodes noted. No crepitus, no palpable step-offs CVS: Normal heart rate and rhythm. Pulses normal. Normal S1 and S2 Respiratory: No respiratory distress. Breath sounds normal. No Wheezing. No rales Abdomen: Soft and nontender. No rigidity. No distention. Back: Pain to palpation laterally to the lumbar spine Skin: Skin warm and dry. Normal skin color. Normal skin turgor. Extremities: No lower extremity edema. No Lacerations. No Rash Neuro: Oriented X 3. No motor deficit. No sensory deficit. Moving all extremities. No slurred speech. CN 2 through 12 grossly intact Psych: calm, cooperative, normal affect Course Course Course Narrative: --patient is neurologically intact, hip deep not suspected -head CT and cervical spine CT pending -x-rays of the thoracic and lumbar spine pending Medical Decision Making Medical Decision Making MDM Narrative: I discussed the CT scan and the x-rays with the patient, no acute findings Radiology Impression Discussion of test interpretation with radiology: I have reviewed the radiologist's reading. Radiologist Impression: FINDINGS: Head: There is no evidence of acute intracranial hemorrhage or territorial infarction. No abnormal mass effect or midline shift is seen. Pretty to white matter differentiation is well preserved. No extra-axial fluid collections are identified. No hydrocephalus. Proportional prominence of the ventricles and sulcal spaces is consistent with mild volume loss. Patchy periventricular and deep white matter hypoattenuation is consistent with mild small vessel ischemic changes. No acute osseous or soft tissue abnormality. The mastoid air cells and visualized portions of the paranasal sinuses are well aerated. Cervical spine: Straightening of the normal cervical lordosis. There is otherwise anatomic alignment of the vertebral bodies and posterior elements. The atlantoaxial and atlantooccipital articulations are intact. Vertebral body heights are maintained. There is multilevel intervertebral disc space narrowing with endplate osteophyte formation and facet arthropathy. No evidence of acute fracture. No prevertebral soft tissue swelling. Mild emphysema of the lung apices noted. The thyroid gland is unremarkable. CT/CT head/brain wo IV con IMPRESSION: 1.? No acute intracranial finding. 2.? No fracture or malalignment of the cervical spine. Mild degenerative changes. FINDINGS: Thoracic spine: No fracture or subluxation. Vertebral body height and alignment maintained. Mild diffuse disc space narrowing with endplate osteophytes present. The paravertebral soft tissues are unremarkable. The visualized lungs are clear. Aortic calcifications. Lap band noted. Lumbar spine: Scoliotic curvature. No acute fracture. Grade 1 anterolisthesis of L4 on L5. There is disc space narrowing throughout the lumbar spine with diffuse facet arthropathy. Small endplate osteophytes. The sacroiliac joints are symmetric. The sacrum is intact. Normal bowel gas pattern. XR/XR thoracic spine 3V IMPRESSION: No acute fracture or malalignment. Mild to moderate multilevel degenerative changes of the thoracolumbar spine. Discharge Plan Discharge Clinical Impression: Fall, Contusion Patient Disposition: Home, Self-Care Instructions: Contusion in Adults (ED) Additional Instructions: Please follow-up with your primary care physician tomorrow. If you have any worsening or new symptoms, please return to the emergency room or call 911 Prescriptions: New tramadol 50 mg tablet 50 mg PO BID PRN (Reason: pain) Qty: 6 0RF No Action Multaq 400 mg tablet 400 mg PO BID Qty: 10 0RF Rx Instructions: must administer with a meal/food metoprolol succinate 50 mg tablet extended release 24 hr 75 mg PO BID Qty: 100 4RF oxycodone 10 mg tablet 10 mg PO Q4H PRN (Reason: pain) Qty: 10 0RF Rx Instructions: Partial Fill upon patient request. oxycodone 5 mg tablet 5 mg PO Q8H PRN (Reason: pain) Qty: 7 0RF Rx Instructions: Partial Fill upon patient request. penicillin V potassium 250 mg Tablet 250 mg PO BID albuterol sulfate 90 mcg/actuation Hfa Aerosol Inhaler 2 puff INHALATION Q4-6H PRN (Reason: Respiratory Distress) lamotrigine 100 mg Tablet 250 mg PO BEDTIME colchicine 0.6 mg Tablet 0.6 mg PO DAILY loratadine 10 mg Tablet 10 mg PO DAILY rosuvastatin 10 mg Tablet 10 mg PO DAILY duloxetine 60 mg Capsule,Delayed Release(Dr/Ec) 60 mg PO DAILY Rx Instructions: TAKES TOGETHER WITH 40 MG CAPSULE duloxetine 40 mg Capsule, Delayed Rel Sprinkle 40 mg PO DAILY Rx Instructions: TAKES TOGETHER WITH 60 MG CAPSULE warfarin [Jantoven] 6 mg Tablet 6 mg PO DAILY@1800 Qty: 30 0RF nitrofurantoin monohyd/m-cryst 100 mg capsule 100 mg PO BID cyclobenzaprine 5 mg tablet 5 mg PO TID PRN (Reason: muscle spasm) Qty: 10 0RF lidocaine 5 % adhesive patch,medicated 1 patch topical DAILY Qty: 15 0RF Rx Instructions: leave on most painful area for up to 12 hrs ropinirole 0.5 mg tablet 0.5 mg PO TID budesonide-formoterol [Symbicort] 80-4.5 mcg/actuation HFA aerosol inhaler 2 puff inhalation BID
== END 2023-01-02 06:51 | disposition home or self-care (01) ==
PROVIDERS: Emergency Provider Emergency Medicine; PCP Family Medicine
DX: S20.223A Contusion of bilateral back wall of thorax, initial encounter (principal); R51.9 Headache, unspecified; M54.2 Cervicalgia; W01.0XXA Fall on same level from slipping, tripping and stumbling without subsequent striking against object, initial encounter; Y93.9 Activity, unspecified; Y92.410 Unspecified street and highway as the place of occurrence of the external cause; Y99.9 Unspecified external cause status; Z79.899 Other long term (current) drug therapy
CPT/HCPCS: 70450; 72072; 72100; 72125; 99284

== ENCOUNTER 2023-02-05 16:28 | Inpatient (IN) | payer OTHER, SELFPAY ==
--- NOTE | ~2023-02-05 | XR_ITS ---
EXAMINATION: XR CHEST CLINICAL INFORMATION: Shortness of breath. COMPARISON: Chest radiograph 01/03/2022. TECHNIQUE: Frontal view of the chest was obtained. FINDINGS: Stable prominence of the cardiomediastinal silhouette as well as a stable diffuse interstitial thickening. No new focal airspace opacity, pleural effusion or pneumothorax. No acute osseous findings. The visualized upper abdomen is within normal limits. XR/XR chest 1V IMPRESSION: No significant change when compared to 01/03/2022.
--- NOTE | 2023-02-05 16:47 | ECG_ITS ---
Test Reason : AFIB Blood Pressure : / mmHG Vent. Rate : 109 BPM Atrial Rate : 256 BPM P-R Int : 000 ms QRS Dur : 084 ms QT Int : 378 ms P-R-T Axes : 000 047 090 degrees QTc Int : 509 ms AGE AND GENDER SPECIFIC ECG ANALYSIS Atrial flutter with variable A-V block Consider right ventricular involvement in acute inferior infarct Abnormal ECG When compared with ECG of 01-JUL-2022 14:10, Nonspecific T wave abnormality, improved in Anterolateral leads QT has lengthened Referred By: Generic ED Physician Electronically Signed By:KERON ARTHUR MD
[2023-02-05 16:57] VITALS: BP 92/64; PULSE 96; RESP 20; TEMP 36.9; O2SAT 96; BMI 40.7
--- NOTE | 2023-02-05 17:07 | ECG_ITS ---
Test Reason : REPEAT Blood Pressure : / mmHG Vent. Rate : 083 BPM Atrial Rate : 250 BPM P-R Int : 000 ms QRS Dur : 086 ms QT Int : 372 ms P-R-T Axes : 254 026 064 degrees QTc Int : 437 ms Atrial flutter with variable A-V block Nonspecific ST abnormality Abnormal ECG When compared with ECG of 05-FEB-2023 16:49, Nonspecific T wave abnormality no longer evident in Lateral leads QT has shortened Referred By: Faby Morgan Electronically Signed By:KERON ARTHUR MD
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
[2023-02-05] MEDS: 0.9 % Sodium Chloride 1,000 ML 999 ML IV (17:35)
[2023-02-05] MEDS: dilTIAZem HCL 30 MG TABLET PO (17:47)
[2023-02-05] MEDS: dilTIAZem HCL 50 MG/10 ML VIAL 20 MG IVPUSH (17:48)
--- NOTE | 2023-02-05 17:53 | PC.NURSE ---
medication administered per provider order.
[2023-02-05 18:48] LABS: MANUAL DIFF FLAG NO
[2023-02-05 18:50] LABS: Basophils Percent Auto 0.5 % (0-2); Eosinophils Absolute Auto 0.2 X10*3/uL (0.0-0.4); Eosinophils Percent Auto 2.5 % (0-4); Hematocrit 41.4 % (37.0-47.0); Imm Gran Abs Auto 0.01 X10*3/uL (0.00-0.03); Imm Gran Pct Auto 0.1 % (0.0-0.4); Lymphocytes Absolute Auto 3.8 X10*3/uL (1.2-4.9); Lymphocytes Percent Auto 50.5 % (20-40); Mean Corpuscular HGB Conc 31.4 g/dl (31.0-35.0); Mean Corpuscular Hemoglobin 27.9 pg (27.0-33.0); Mean Corpuscular Volume 88.8 fL (80.0-98.0); Mean Platelet Volume 10.5 fL (9.4-12.3); Monocytes Absolute Auto 0.6 X10*3/uL (0.1-1.2); Monocytes Percent Auto 8.2 % (2-11); Neutrophils Absolute Auto 2.8 x10*3/uL (2.0-8.3); Neutrophils Percent Auto 38.2 % (45-73); Platelet Count 194 X10*3/uL (160-400); Red Blood Count 4.66 X10*6/uL (4.20-5.50); Red Cell Distribution Width 15.9 % (11.0-16.0); White Blood Count 7.5 X10*3/uL (4.8-10.8)
[2023-02-05 19:01] LABS: Prothrombin Time 23.2 SEC (10.0-13.1)
[2023-02-05 19:04] LABS: Partial Thromboplastin Time 36.3 SEC (26.0-36.4)
[2023-02-05 19:08] LABS: Alanine Aminotransferase 20 U/L (0-31); Albumin Level 3.7 g/dL (3.5-5.0); Alkaline Phosphatase 77 U/L (39-117); Anion Gap 10 (12-20); Aspartate Amino Transferase 19 U/L (5-31); Bilirubin Direct 0.3 mg/dL (0.0-0.5); Bilirubin Total 0.8 mg/dL (0.0-1.0); Blood Urea Nitrogen 13 mg/dL (9-16); Calcium 9.4 mg/dL (8.4-10.2); Carbon Dioxide 31 mmol/L (22-29); Chloride 106 mmol/L (96-108); Creatinine Clr Calc Pharmacy 78.5; Estimated Glomerular Filt Rate > 60; Glucose Random 100 mg/dL (60-115); Lipase 15 U/L (8-78); Potassium 4.7 mmol/L (3.3-5.1); Sodium 142 mmol/L (135-145); Total Protein 7.1 g/dL (6.5-8.0)
[2023-02-05 19:15] LABS: B Type Natriuretic Peptide 435 pg/mL (<100)
[2023-02-05 19:16] LABS: Troponin-I High Sensitivity 6.9 ng/L (<3.5-17.0)
[2023-02-05 19:20] LABS: COVID-19 Test Negative (Negative); IDNOW Serial# BCCEAD1C
--- NOTE | 2023-02-05 20:44 | PHA.MEDREC ---
Pharmacy Consult ? Medication Reconciliation Pharmacy has completed the medication reconciliation. Spoke to patient to confirm meds. Patient unsure of dosage regimen on medications. Utilized claim history to confirm.
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
[2023-02-05] MEDS: Albuterol/Iprat 2.5/0.5MG 3 ML AMPUL.NEB INHALE (21:09)
[2023-02-05] MEDS: methylPREDNISolone Sod Succ 40 MG/ML VIAL IVPUSH (21:13)
[2023-02-05] MEDS: Lidocaine 4 % Patch ADH..PATCH 1 PATCH TRANSDERMA (21:13)
[2023-02-05 21:27] LABS: Appearance Urine Clear; Color Urine Yellow; Glucose Urine UA Negative (Negative); Leukocyte Esterase Urine Trace (Negative); Nitrite Urine Negative (Negative); PH 6.5 (5.0-9.0); UMIC TRIGGER UACC YES; Urine Blood Negative (Negative); Urine Ketones Negative (Negative); Urine Protein Negative (Neg-Trace)
[2023-02-05 21:32] LABS: Bacteria Urine 1+ (None Seen); Hyaline Casts Urine 0-2 /LPF (0-2); RBC Urine 0-2 /HPF (0-2); WBC Urine 0-5 /HPF (0-5)
[2023-02-05] MEDS: Nitrofurantoin Monohyd/M-Cryst 100 MG CAPSULE PO (21:55)
[2023-02-05] MEDS: Metoprolol Succinate ER 25 MG TAB.ER.24H 75 MG PO (21:55)
[2023-02-05] MEDS: Cyclobenzaprine HCl 5 MG TABLET PO (21:55)
[2023-02-05] MEDS: lamoTRIgine 25 MG TABLET 50 MG PO (21:56)
[2023-02-05] MEDS: lamoTRIgine 100 MG TABLET 200 MG PO (21:56)
[2023-02-05] MEDS: cloNIDine HCL 0.1 MG TABLET PO (21:56)
[2023-02-05 22:01] VITALS: BP 116/67; PULSE 114; RESP 20; O2SAT 93
[2023-02-05] MEDS: Warfarin Sodium 2.5 MG TABLET PO (22:16)
[2023-02-05] MEDS: rOPINIRole HCL 0.5 MG TABLET PO (22:16)
[2023-02-05] MEDS: Dronedarone HCl 400 MG TABLET PO (22:16)
--- NOTE | 2023-02-05 22:53 | PC.NURSE ---
late entry - pt medicated per sep. pt ambulates to and from bathroom with steady gait although becomes sob with walking and exertion. breathing treatment given by RT. pt not requiring supplemental O2 at this time, will CTM.
[2023-02-05 23:26] VITALS: BP 135/80; PULSE 88; RESP 18; TEMP 36.9
[2023-02-06] VITALS (12 sets, daily range): BP systolic 108–143; BP diastolic 8–95; PULSE 116–129; RESP 16–26; TEMP 36.3–36.9; O2SAT 92–98
--- NOTE | 2023-02-06 | ECG_ITS ---
Test Reason : a flutter Blood Pressure : / mmHG Vent. Rate : 125 BPM Atrial Rate : 250 BPM P-R Int : 000 ms QRS Dur : 090 ms QT Int : 420 ms P-R-T Axes : 088 032 143 degrees QTc Int : 606 ms Atrial flutter with 2:1 A-V conduction Inferior infarct , age undetermined ST & T wave abnormality, consider anterolateral ischemia Abnormal ECG When compared with ECG of 05-FEB-2023 18:49, Vent. rate has increased BY 42 BPM Inferior infarct is now Present ST more depressed Inferior leads ST more depressed Lateral leads T wave inversion now evident in Anterior leads Referred By: Efren Joya Electronically Signed By:KERON ARTHUR MD
--- NOTE | 2023-02-06 01:07 | MHC.EDTECH ---
pt c/o sob after walking to bathroom. vs taken. spO2 88% on RA. pt placed on 2L nasal cannula per jareth wooten.
[2023-02-06] MEDS: 0.9 % Sodium Chloride Flush 3 ML SYRINGE IVFLUSH ×2 (03:19→16:11)
--- NOTE | 2023-02-06 05:57 | PC.NURSE ---
patient in bed with eyes closed patient has been up and about to the bathroom with no assistance patient was encouraged to use her cane when ambulating patient continue to go without it patient will continue to be monitored for safety
[2023-02-06 06:35] LABS: MANUAL DIFF FLAG NO
[2023-02-06 06:48] LABS: Basophils Percent Auto 0.3 % (0-2); Eosinophils Absolute Auto 0.2 X10*3/uL (0.0-0.4); Eosinophils Percent Auto 2.6 % (0-4); Hematocrit 44.9 % (37.0-47.0); Imm Gran Abs Auto 0.04 X10*3/uL (0.00-0.03); Imm Gran Pct Auto 0.7 % (0.0-0.4); Lymphocytes Absolute Auto 1.2 X10*3/uL (1.2-4.9); Mean Corpuscular HGB Conc 31.2 g/dl (31.0-35.0); Mean Corpuscular Volume 89.8 fL (80.0-98.0); Monocytes Absolute Auto 0.1 X10*3/uL (0.1-1.2); Neutrophils Absolute Auto 4.5 x10*3/uL (2.0-8.3); Neutrophils Percent Auto 74.4 % (45-73); Platelet Count 215 X10*3/uL (160-400); Red Cell Distribution Width 15.7 % (11.0-16.0); White Blood Count 6.1 X10*3/uL (4.8-10.8)
[2023-02-06 06:52] LABS: INTERNATIONAL NORM RATIO 1.9 (0.9-1.1); Prothrombin Time 22.1 SEC (10.0-13.1)
[2023-02-06 06:59] LABS: Anion Gap 13 (12-20); Blood Urea Nitrogen 12 mg/dL (9-16); Calcium 9.9 mg/dL (8.4-10.2); Carbon Dioxide 26 mmol/L (22-29); Chloride 107 mmol/L (96-108); Creatinine Clr Calc Pharmacy 84.2; Estimated Glomerular Filt Rate > 60; Glucose Random 193 mg/dL (60-115); Potassium 4.6 mmol/L (3.3-5.1); Sodium 141 mmol/L (135-145)
[2023-02-06] MEDS: Albuterol/Iprat 2.5/0.5MG 3 ML AMPUL.NEB INHALE ×3 (08:01→19:56)
[2023-02-06] MEDS: methylPREDNISolone Sod Succ 40 MG/ML VIAL IVPUSH ×2 (09:53→19:39)
[2023-02-06] MEDS: DULoxetine HCl 60 MG CAPSULE.DR PO (09:55)
[2023-02-06] MEDS: Nitrofurantoin Monohyd/M-Cryst 100 MG CAPSULE PO ×2 (09:55→20:03)
[2023-02-06] MEDS: Metoprolol Succinate ER 25 MG TAB.ER.24H 75 MG PO ×2 (09:55→20:02)
[2023-02-06] MEDS: Atorvastatin Calcium 40 MG TABLET PO (09:55)
[2023-02-06] MEDS: Penicillin V Potassium 250 MG TABLET PO ×2 (09:56→20:02)
[2023-02-06] MEDS: Loratadine 10 MG TABLET PO (09:58)
[2023-02-06] MEDS: DULoxetine HCl 20 MG CAPSULE.DR 40 MG PO (10:47)
[2023-02-06] MEDS: rOPINIRole HCL 0.5 MG TABLET PO ×3 (10:47→20:02)
[2023-02-06] MEDS: Dronedarone HCl 400 MG TABLET PO ×2 (10:47→20:02)
[2023-02-06] MEDS: Colchicine 0.6 MG TABLET PO (10:47)
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
--- NOTE | 2023-02-06 13:39 | P.PNIM_ITS ---
Subjective Subjective Date of Service: 02/06/23 Interval History: Complaining of anxiety, feels symptoms of shortness of breath is related to anxiety denies chest pain, no fevers no chills feels cough is stable no nausea, no vomiting, no abdominal pain was unable to pay her electric pills therefore has no electricity in last 48 hours the, requesting for anxiety medication other than clonidine that seems to be not helping, no other acute issues since admission tele monitor showed persistent atrial flutter heart rate in 120s. Review of Systems All other system reviewed and negative Physical Exam Vital Signs: Vital Signs: Last Vital Signs Temp 97.4 F 02/06/23 07:00 Pulse 122 H 02/06/23 11:32 Resp 20 02/06/23 11:32 BP 143/95 H 02/06/23 10:01 Pulse Ox 92 02/06/23 10:01 O2 Del Method Room Air 02/06/23 10:01 O2 Flow Rate 2 02/06/23 07:00 BMI result Body Mass Index 40.7 Const: Other: General: Awake al ert x3, sitting co mfortably, no acut e distress Neck no JVD Resp:? CTA bi lateral, no wheeze , no rhonchi CVS: irregularly irregu lar GI: Abdomen s oft nontender giselle l sounds audible S kin: No rash Extre mities no pitting edema discoloratio n likely due to ch ronic venous stasi s Neuro:? motor gr ossly intact Psych : appropriate affe ct Objective Data Active Medications Acetaminophen (Acetaminophen 325 Mg Tablet) 650 mg PO Q6H PRN PRN Reason: Pain, Mild (Pain Scale 1-3) Albuterol Sulfate (Albuterol Sulfate 90 Mcg 8 Gm Inhaler) 2 puff INHALE Q4H PRN PRN Reason: Respiratory Distress Albuterol/Ipratropium (Albuterol/Iprat 2.5/0.5mg 3 Ml Ampul.Neb) 3 ml INHALE RQ4H PRN PRN Reason: Shortness of Breath/Wheezing Albuterol/Ipratropium (Albuterol/Iprat 2.5/0.5mg 3 Ml Ampul.Neb) 3 ml INHALE RQ4H WHILE AWAKE [place] Last Admin: 02/06/23 11:32 Dose: 3 ml Documented By: BALJIT Atorvastatin Calcium (Atorvastatin Calcium 40 Mg Tablet) 40 mg PO DAILY [facility] Last Admin: 02/06/23 09:55 Dose: 40 mg Documented By: ANN Clonidine HCl (Clonidine Hcl 0.1 Mg Tablet) 0.1 mg PO BID PRN; Protocol PRN Reason: Anxiety Last Admin: 02/05/23 21:56 Dose: 0.1 mg Documented By: SHAI Colchicine (Colchicine 0.6 Mg Tablet) 0.6 mg PO DAILY [facility] Last Admin: 02/06/23 10:47 Dose: 0.6 mg Documented By: ANN Cyclobenzaprine HCl (Cyclobenzaprine Hcl 5 Mg Tablet) 5 mg PO BEDTIME PRN PRN Reason: muscle spasm Last Admin: 02/05/23 21:55 Dose: 5 mg Documented By: SHAI Docusate Sodium (Docusate Sodium 100 Mg Capsule) 100 mg PO DAILY PRN PRN Reason: Constipation Dronedarone (Dronedarone Hcl 400 Mg Tablet) 400 mg PO BID [facility] Last Admin: 02/06/23 10:47 Dose: 400 mg Documented By: ANN Duloxetine HCl (Duloxetine Hcl 20 Mg Capsule.Dr) 40 mg PO DAILY [facility] Last Admin: 02/06/23 10:47 Dose: 40 mg Documented By: ANN Duloxetine HCl (Duloxetine Hcl 60 Mg Capsule.Dr) 60 mg PO DAILY [facility] Last Admin: 02/06/23 09:55 Dose: 60 mg Documented By: ANN Ipratropium [place] (Ipratropium [place] Zia 0.03 % 30 Ml [place]) 2 spray NOSTRIL-B BID PRN PRN Reason: Allergy Symptoms Lamotrigine (Lamotrigine 25 Mg Tablet) 50 mg PO BEDTIME [facility] Last Admin: 02/05/23 21:56 Dose: 50 mg Documented By: SHAI Lamotrigine (Lamotrigine 100 Mg Tablet) 200 mg PO BEDTIME [facility] Last Admin: 02/05/23 21:56 Dose: 200 mg Documented By: SHAI Loratadine (Loratadine 10 Mg Tablet) 10 mg PO DAILY [facility] Last Admin: 02/06/23 09:58 Dose: 10 mg Documented By: ANN Methylprednisolone Sodium Succinate (Methylprednisolone Sod Succ 40 Mg/Ml Vial) 40 mg IVPUSH Q12H [facility] Last Admin: 02/06/23 09:53 Dose: 40 mg Documented By: ANN Metoprolol Succinate (Metoprolol Succinate Er 25 Mg Tab.Er.24h) 75 mg PO BID [facility]; Protocol Last Admin: 02/06/23 09:55 Dose: 75 mg Documented By: ANN Nitrofurantoin Macrocrystals (Nitrofurantoin Monohyd/M-Cryst 100 Mg Capsule) 100 mg PO BID [facility] Last Admin: 02/06/23 09:55 Dose: 100 mg Documented By: ANN Ondansetron HCl (Ondansetron Hcl 4 Mg/2 Ml Vial) 4 mg IVPUSH Q8H PRN PRN Reason: Nausea and Vomiting Penicillin V Potassium (Penicillin V Potassium 250 Mg Tablet) 250 mg PO BID [facility] Last Admin: 02/06/23 09:56 Dose: 250 mg Documented By: ANN Pharmacy Consult (Consult Rx Perform Med Rec) 1 each MISCELLANE ONCE PRN PRN Reason: Consult order Ropinirole HCl (Ropinirole Hcl 0.5 Mg Tablet) 0.5 mg PO TID [facility] Last Admin: 02/06/23 10:47 Dose: 0.5 mg Documented By: ANN Sodium Chloride (0.9 % Sodium Chloride Flush 3 Ml Syringe) 3 ml IVFLUSH QSHIFT [facility] Last Admin: 02/06/23 09:51 Dose: Not Given Documented By: ANN Non-Admin Reason: Med Not Available Warfarin Sodium (Warfarin Sodium 2.5 Mg Tablet) 2.5 mg PO SUMOTUWEFVLADISLAVA@1800 [facility] Last Admin: 02/05/23 22:16 Dose: 2.5 mg Documented By: SHAI Warfarin Sodium (Warfarin Sodium 5 Mg Tablet) 5 mg PO TH@1800 [facility] Labs 02/06/23 06:27 02/06/23 06:27 Labs: Laboratory Results - last 24 hr 02/05/23 02/05/23 02/05/23 18:42 18:42 18:42 MCV 88.8 MCH 27.9 MCHC 31.4 RDW 15.9 Plt Count 194 MPV 10.5 Immature Gran % (Auto) 0.1 Neut % (Auto) 38.2 L Lymph % (Auto) 50.5 H [place] % (Auto) 8.2 Eos % (Auto) 2.5 Baso % (Auto) 0.5 Lymph # (Auto) 3.8 Stanton # (Auto) 0.6 Eos # (Auto) 0.2 Baso # (Auto) 0.0 Abs Immat Gran (auto) 0.01 Absolute Neuts (auto) 2.8 Absolute Nucleated RBC 0.000 Nucleated RBC % (auto) 0.0 PT INR APTT Anion Gap 10 L Estim Creat Clear Calc 78.5 Estimated GFR > 60 Random Glucose 100 Calcium 9.4 Total Bilirubin 0.8 Direct Bilirubin 0.3 AST 19 ALT 20 Alkaline Phosphatase 77 Troponin I High Sens 6.9 B-Natriuretic Peptide Total Protein 7.1 Albumin 3.7 Lipase 15 Urine Color Urine Appearance Urine pH Ur Specific [place] Urine Protein Urine Glucose (UA) Urine Ketones Urine Blood Urine Nitrite Ur Leukocyte Esterase Urine RBC Urine WBC Ur Squamous Epith Cells Urine Bacteria Hyaline Casts COVID-19 (REMA) COVID-Zuki 02/05/23 02/05/23 02/05/23 18:42 18:42 18:42 MCV MCH MCHC RDW Plt Count MPV Immature Gran % (Auto) Neut % (Auto) Lymph % (Auto) Stanton % (Auto) Eos % (Auto) Baso % (Auto) Lymph # (Auto) [place] # (Auto) Eos # (Auto) Baso # (Auto) Abs Immat Gran (auto) Absolute Neuts (auto) Absolute Nucleated RBC Nucleated RBC % (auto) PT 23.2 H INR 2.0 H APTT 36.3 Anion Gap Estim Creat Clear Calc Estimated GFR Random Glucose Calcium Total Bilirubin Direct Bilirubin AST ALT Alkaline Phosphatase Troponin I High Sens B-Natriuretic Peptide 435 H Total Protein Albumin Lipase Urine Color Urine Appearance Urine pH Ur Specific [place] Urine Protein Urine Glucose (UA) Urine Ketones Urine Blood Urine Nitrite Ur Leukocyte Esterase Urine RBC Urine WBC Ur Squamous Epith Cells Urine Bacteria Hyaline Casts COVID-19 (REMA) Negative COVID-Zuki See Note 02/05/23 02/06/23 02/06/23 21:16 06:27 06:27 MCV 89.8 MCH 28.0 MCHC 31.2 RDW 15.7 Plt Count 215 MPV 11.0 Immature Gran % (Auto) 0.7 H Neut % (Auto) 74.4 H Lymph % (Auto) 20.0 Stanton % (Auto) 2.0 Eos % (Auto) 2.6 Baso % (Auto) 0.3 Lymph # (Auto) 1.2 Stanton # (Auto) 0.1 Eos # (Auto) 0.2 Baso # (Auto) 0.0 Abs Immat Gran (auto) 0.04 H Absolute Neuts (auto) 4.5 Absolute Nucleated RBC 0.000 Nucleated RBC % (auto) 0.0 PT INR APTT Anion Gap 13 Estim Creat Clear Calc 84.2 Estimated GFR > 60 Random Glucose 193 H Calcium 9.9 Total Bilirubin Direct Bilirubin AST ALT Alkaline Phosphatase Troponin I High Sens B-Natriuretic Peptide Total Protein Albumin Lipase Urine Color Yellow Urine Appearance Clear Urine pH 6.5 Ur Specific [place] 1.010 Urine Protein Negative Urine Glucose (UA) Negative Urine Ketones Negative Urine Blood Negative Urine Nitrite Negative Ur Leukocyte Esterase Trace H Urine RBC 0-2 Urine WBC 0-5 Ur Squamous Epith Cells 11-20 Urine Bacteria 1+ Hyaline Casts 0-2 COVID-19 (REMA) COVID-19 Jounce Com 02/06/23 06:27 MCV MCH MCHC RDW Plt Count MPV Immature Gran % (Auto) Neut % (Auto) Lymph % (Auto) [place] % (Auto) Eos % (Auto) Baso % (Auto) Lymph # (Auto) Stanton # (Auto) Eos # (Auto) Baso # (Auto) Abs Immat Gran (auto) Absolute Neuts (auto) Absolute Nucleated RBC Nucleated RBC % (auto) PT 22.1 H INR 1.9 H APTT Anion Gap Estim Creat Clear Calc Estimated GFR Random Glucose Calcium Total Bilirubin Direct Bilirubin AST ALT Alkaline Phosphatase Troponin I High Sens B-Natriuretic Peptide Total Protein Albumin Lipase Urine Color Urine Appearance Urine pH Ur Specific [place] Urine Protein Urine Glucose (UA) Urine Ketones Urine Blood Urine Nitrite Ur Leukocyte Esterase Urine RBC Urine WBC Ur Squamous Epith Cells Urine Bacteria Hyaline Casts COVID-19 (REMA) COVID-19 Clin Com Assessment and Plan (1) Atrial flutter: Status: Acute (2) Acute exacerbation of chronic obstructive pulmonary disease: Status: Acute Plan 57-year-old female with past medical history of COPD on chronic BiPAP at bedtime presents the hospital in COPD exacerbation as well as requiring BiPAP #? acute COPD exacerbation with chronic hypoxic respiratory failure on 1 L of home oxygen -? stable oxygenation, no hypoxia on home oxygen -? increased cough, sputum production, dyspnea, will wean IV Solu-Medrol, continue DuoNeb p.r.n. as well as scheduled -? chest x-ray negative for pneumonia hold antibiotics - patient has no electricity at home case reviewer working to arrange electricity turned back on. #? a flutter with RVR -? noted to have chronic atrial flutter with heart rate in 120s on metoprolol 75 mg b.i.d. and Multaq 400mg bid Question exacerbated by anxiety/COPD, will give hydroxyzine treat COPD, give additional dose of metoprolol -? continue home medications,l consult Cardiology for further medication adjustm ent versus cardioversion -? continue Coumadin #? chronic pain -? continue oxycodone, Cymbalta and Flexeril. #? restless leg syndrome - Continue Requip #? hyperlipidemia -? continue Lipitor 40. # mood disorder on multiple medications, complaining of anxiety will give hydroxyzine and recommend outpatient follow-up PCP/psych # on chronic antibiotics to prevent recurrent UTI and cellulitis. # obesity recommended weight reduction and low-calorie diet ?DVT prophylaxis: Coumadin Time Spent With Patient Time: Total time managing care of this patient today ____ minutes. Quality Stroke Does the patient have a stroke diagnosis?: No VTE Prior VTE?: No VTE Risk Level:: Medical - moderate - high VTE Device Contraindication: Treatment Not Indicated VTE Drug Contraindication: N/A - Med Ordered
[2023-02-06] MEDS: hydrOXYzine HCL 25 MG TABLET PO (14:53)
[2023-02-06] MEDS: Metoprolol Tartrate 25 MG TABLET PO (14:53)
[2023-02-06] MEDS: Warfarin Sodium 2.5 MG TABLET PO (17:53)
[2023-02-06] MEDS: Nicotine 21 MG PATCH.TD24 TRANSDERMA (19:39)
[2023-02-06] MEDS: cloNIDine HCL 0.1 MG TABLET PO (20:02)
[2023-02-06] MEDS: Docusate Sodium 100 MG CAPSULE PO (20:02)
[2023-02-06] MEDS: lamoTRIgine 25 MG TABLET 50 MG PO (20:02)
[2023-02-06] MEDS: Cyclobenzaprine HCl 5 MG TABLET PO (20:03)
[2023-02-06] MEDS: lamoTRIgine 100 MG TABLET 200 MG PO (20:03)
[2023-02-06] MEDS: traMADoL HCL 50 MG TABLET PO (20:33)
[2023-02-06] MEDS: Metoprolol Tartrate 5 MG/5 ML VIAL IVPUSH (20:50)
[2023-02-07] VITALS (7 sets, daily range): BP systolic 100–133; BP diastolic 55–90; PULSE 85–126; RESP 16–20; TEMP 35.9–37; O2SAT 93–96
--- NOTE | 2023-02-07 04:50 | PC.NURSE ---
2015; pts HR between 120-135, went up to 160 with ambulating to bathroom. Patient received scheduled bedtime po metoprolol 75 mg and multaq [address] Joya notified of elevated HR. Order for EKG, IV lopressor. Patient asymptomatic, denies chest pain or discomfort. 0120; HR 101
--- NOTE | 2023-02-07 04:56 | PC.NURSE ---
patient continues to refuse bed alarm, telesitter. Educated patient on safety precautions and to utilize callbell for assistance. Patient uses callbell appropriately.
--- NOTE | 2023-02-07 07:00 | CA_ITS ---
Transthoracic Echocardiogram Patient (Last, First, Middle): Shruhti Orosco, Gender: Female Date of : 1965 Age: 57 Procedure Date: 02/07/2023 Procedure Type: Transthoracic Echocardiogram Location: [facility] [place] Height: 160.02 cm Weight: 104.33 kg BSA: 2.05 m2 Heart Rate: bpm BP: 128 / 90 mmHg Manager [employer]: TO Referring MD: Jeny Ervin MD Boarding Room Fixer: David Mcqueen MD Symptoms: atrail flutter Study Quality: Fair/Contrast ECG Rhythm: Atrial flutter Conclusions: - 1. Low normal LV ejection fraction 50-55% 2. Biatrial enlargement 3. Moderate mitral regurgitation and moderate tricuspid regurgitation 4. Mild to moderate elevation right ventricular systolic pressure significantly elevated right atrial pressures 5. No gross pericardial effusion Findings Procedure Information Contrast agent, definity, is being given per protocol without apparent complications. Left Ventricle Normal left ventricular cavity size. There is mildly increased left ventricular wall thickness. The left ventricular systolic function is low normal. The visually estimated ejection fraction is between 50-55%. Diastolic function is indeterminate on the basis of available data. Right Ventricle Mildly increased right ventricular cavity size. There is normal right ventricular systolic function. Atria The left atrium is mildly dilated. There is no evidence of interatrial shunt. The right atrium is mildly dilated. Aortic Valve The aortic valve was not well visualized. There is no aortic valve stenosis. There is mild aortic valve regurgitation. Mitral Valve There is mild anterior and posterior mitral leaflet thickening. There is moderate mitral valve regurgitation. There is no mitral valve stenosis. Pulmonic Valve The pulmonic valve is likely normal. Tricuspid Valve Normal tricuspid valve structure. There is mild to moderate tricuspid valve regurgitation. Significantly elevated right atrial pressure. Mild to moderate pulmonary hypertension is present. Great Vessels All visible segments of the aorta are normal in size. The pulmonary artery was not well visualized. Venous The inferior vena cava is severely dilated and does not collapse with inspiration. Pericardium/Pleural There is no evidence of pericardial effusion. Prior Study Comparison Changes noted compared to prior study dated: 11/26/2021. RV systolic pressure is increased Measurements 2D Linear Measurements IVSd: 1.35 0.6-0.9/0.6-1.0 cm LVIDd: 4.99 3.9-5.3/4.2-5.9 cm LVIDd Index: 2.43 2.4-3.2/2.2-3.1 cm/m2 LVIDs: 3.34 2.0-3.6 cm LVPWd: 1.10 0.7-1.1 cm LA Diam: 3.80 2.7-3.8/3.0-4.0 cm LAIDs Index: 1.85 1.5-2.3 cm/m2 LV Mass: 299.08 67-162/88-224 g LV Mass Index: 145.89 43-95/49-115 g/m2 LVOT Diam: 2.00 3.0+(-)1.3 cm 2D Systolic Function EF 4C: 49.70 >55% Mitral Valve MV Pk E: 1.08 MV Decel Time: 98.00 E'Lateral: 12.40 E'Medial: 8.92 E/E' Med: 12.10 E/E' Lat: 8.70 PHT: 29.00 MVA PHT: 7.59 Decel [place]: 11.06 Aortic Valve AoV Pk Carlos: 1.27 AoV Pk Grad: 6.00 LVOT LVOT Pk Carlos: 0.95 LVOT Mn Carlos: 0.61 LVOT VTI: 0.18 LVOT Pk Grad: 4.00 LVOT Mn Grad: 2.00 LVOT Diam: 2.00 LVOT Area: 3.14 Diastolic Function MV Pk E: 1.08 E'Medial: 8.92 E/E' Med: 12.10 E' Laterial: 12.40 E/E' Lat: 8.70 Right Ventricle TAPSE (mm): 19.10 TVS' Carlos: 11.70 Tricuspid Valve TR Pk Carlos: 2.75 TR Pk Grad: 30.00 RA Press: 15.00 RVSP: 45.00 Great Vessels Aorta Sinus of Valsalva: 3.13 2.0-3.[address] [place]: 2.07 1.7-3.4 cm Ao Asc: 3.30 2.1-3.4 cm Updated in Other Vendor System with Status of Final David Mcqueen MD electronically signed on 02/07/2023 3:23:33 PM with status of Final
[2023-02-07] MEDS: Nitrofurantoin Monohyd/M-Cryst 100 MG CAPSULE PO ×2 (08:59→21:19)
[2023-02-07] MEDS: DULoxetine HCl 60 MG CAPSULE.DR PO (08:59)
[2023-02-07] MEDS: Nicotine 21 MG PATCH.TD24 TRANSDERMA (08:59)
[2023-02-07] MEDS: DULoxetine HCl 20 MG CAPSULE.DR 40 MG PO (08:59)
[2023-02-07] MEDS: rOPINIRole HCL 0.5 MG TABLET PO ×3 (08:59→21:19)
[2023-02-07] MEDS: Dronedarone HCl 400 MG TABLET PO ×2 (08:59→21:20)
[2023-02-07] MEDS: Penicillin V Potassium 250 MG TABLET PO ×2 (08:59→21:19)
[2023-02-07] MEDS: Metoprolol Succinate ER 25 MG TAB.ER.24H 75 MG PO ×2 (08:59→21:19)
[2023-02-07] MEDS: Atorvastatin Calcium 40 MG TABLET PO (08:59)
[2023-02-07] MEDS: Loratadine 10 MG TABLET PO (09:00)
[2023-02-07] MEDS: 0.9 % Sodium Chloride Flush 3 ML SYRINGE IVFLUSH ×4 (09:00→21:26)
[2023-02-07] MEDS: methylPREDNISolone Sod Succ 40 MG/ML VIAL IVPUSH (09:00)
[2023-02-07] MEDS: Colchicine 0.6 MG TABLET PO (09:00)
[2023-02-07] MEDS: Albuterol/Iprat 2.5/0.5MG 3 ML AMPUL.NEB INHALE (09:08)
[2023-02-07 10:05] LABS: INTERNATIONAL NORM RATIO 2.3 (0.9-1.1); Prothrombin Time 27.8 SEC (10.0-13.1)
--- NOTE | 2023-02-07 11:51 | P.CONCA_ITS ---
History of Present Illness History of Present Illness Date of Service: 02/07/23 Consult reason: other (Atrial flutter with rapid ventricular response) Chief complaint: COPD exacerbation Narrative: I was consulted to see Shruthi in cardiology consultation today because of persistent elevated heart rate. She is noted to be in atrial flutter with rapid ventricular response. Patient came to the hospital as she was hypoxic and not able to breathe yesterday after she had no laxity in her house with no CPAP therapy as well as oxygen therapy as well as very heart and humid in her home. She then had COPD exacerbation. She came to the emergency room and noted to be in addition to COPD exacerbation having atrial flutter with rapid ventricular response. Her atrial flutter as remain uncontrolled at 130 beats per minute. She is currently on Multaq to maintain rhythm and in the past has been advise synchronized cardioversion, however patient says that she has avoided this. She is on warfarin therapy for anticoagulation her INR levels have been labile. She gets INRs checked every week, 3 weeks ago her INR subtherapeutic. She says she has wheezing currently but not having any symptoms of irregular heartbeat or rapid heart rate. Denies any lightheadedness, syncope. Does have exertional shortness of breath. She has also started noticing increasing leg swelling more recently. Echocardiogram done November 2021 shows LVEF of 50-55% with [id number] mitral regurgitation with significant elevated right atrial pressures and mild pulmonary hypertension. She does have obstructive sleep apnea uses CPAP, obesity, hypertension, COPD, chronic back pain. Review of Systems Constitutional: Constitutional: Reports no additional constitutional complaints Eyes: Eyes: Reports no additional eye complaints Cardiovascular: Cardiovascular: Denies chest pain, Reports rapid heart rate, Reports leg edema, Denies lightheadedness, Denies Loss of Consciousness, Denies palpitations and Reports dyspnea on exertion Respiratory: Respiratory: Reports dyspnea on exertion and Reports wheezing Gastrointestinal: Gastrointestinal: Reports no additional gastrointestinal complaints Genitourinary: Genitourinary: Reports no additional female genitourinary complaints Neurologic: Reports system reviewed and no additional complaints, except as documented Psychiatric: Psychiatric: Reports no additional psychiatric complaints Endocrine: Endocrine: Denies palpitations Allergic/Immunologic: Allergic/Immunologic: Reports wheezing PMFSH Past Medical History Medical History Arthritis COPD (chronic obstructive pulmonary disease) Diabetes Disc disorder of cervical region Disc disorder of lumbar region DVT of axillary vein, acute HLD (hyperlipidemia) HTN (hypertension) Scoliosis Family History Family History Father Stroke Other Diabetes Surgical History Surgical History Previous back surgery Status post knee replacement Social History Social History Household Members: Children Household Members Other:: daughter Housing: Condominium Do you presently have visiting nurse or other home services: Yes Alcohol intake: never Patient Tobacco Use Status: Current everyday Tobacco user Tobacco use type: Cigarette Cigarette Packs Per Day: 1 Cigarettes Per Day: 20.0 Years Smoked: 40 +/- Smoked in Last 30 Days: No Patient Interested in Nicotine Replacement: Yes Patient Given Instructions on How to Stop Smoking: No Second Hand Smoke Exposure: No Use of substances other than those prescribed or required for medical reasons: No Currently Displaying Signs/Symptoms of Drug Intoxication Withdrawal: No Any prior treatment program specific to substance use: No Have you been hit, kicked, punched, or otherwise hurt by someone within the past year? If so, by whom?: No Do you feel safe in your current relationship?: Yes Is there a partner from a previous relationship who is making you feel unsafe now?: No Are you made to feel afraid or neglected: No Advance Directives: Yes Advance Directives on File: Yes Advance Directives Date on File: 11/24/21 Do you have thoughts of harming others: None Do you have a plan to hurt others: No Plan Recently lost weight without trying: Yes How much weight loss: Unsure Eating poorly because of decreased appetite: No Nutrition screen score: 4 Nutrition Risks: No Nutritional Risk Patient : No : No Poor oral hygiene: No service: No Meds Allergies Allergy/AdvReac Type Severity Reaction Status Date / Time adhesive Allergy Rash Verified 09/29/22 14:58 Active Medications: Current Medications Acetaminophen (Acetaminophen 325 Mg Tablet) 650 mg PO Q6H PRN PRN Reason: Pain, Mild (Pain Scale 1-3) Albuterol Sulfate (Albuterol Sulfate 90 Mcg 8 Gm Inhaler) 2 puff INHALE Q4H PRN PRN Reason: Respiratory Distress Albuterol/Ipratropium (Albuterol/Iprat 2.5/0.5mg 3 Ml Ampul.Neb) 3 ml INHALE RQ4H PRN PRN Reason: Shortness of Breath/Wheezing Albuterol/Ipratropium (Albuterol/Iprat 2.5/0.5mg 3 Ml Ampul.Neb) 3 ml INHALE RQ6H WHILE AWAKE [facility] Last Admin: 02/07/23 09:08 Dose: 3 ml Atorvastatin Calcium (Atorvastatin Calcium 40 Mg Tablet) 40 mg PO DAILY [facility] Last Admin: 02/07/23 08:59 Dose: 40 mg Clonidine HCl (Clonidine Hcl 0.1 Mg Tablet) 0.1 mg PO BID PRN; Protocol PRN Reason: Anxiety Last Admin: 02/06/23 20:02 Dose: 0.1 mg Colchicine (Colchicine 0.6 Mg Tablet) 0.6 mg PO DAILY [facility] Last Admin: 02/07/23 09:00 Dose: 0.6 mg Cyclobenzaprine HCl (Cyclobenzaprine Hcl 5 Mg Tablet) 5 mg PO BEDTIME PRN PRN Reason: muscle spasm Last Admin: 02/06/23 20:03 Dose: 5 mg Docusate Sodium (Docusate Sodium 100 Mg Capsule) 100 mg PO DAILY PRN PRN Reason: Constipation Last Admin: 02/06/23 20:02 Dose: 100 mg Dronedarone (Dronedarone Hcl 400 Mg Tablet) 400 mg PO BID [facility] Last Admin: 02/07/23 08:59 Dose: 400 mg Duloxetine HCl (Duloxetine Hcl 20 Mg Capsule.Dr) 40 mg PO DAILY [facility] Last Admin: 02/07/23 08:59 Dose: 40 mg Duloxetine HCl (Duloxetine Hcl 60 Mg Capsule.Dr) 60 mg PO DAILY [facility] Last Admin: 02/07/23 08:59 Dose: 60 mg Ipratropium [place] (Ipratropium [place] Zia 0.03 % 30 Ml [place]) 2 spray NOSTRIL-B BID PRN PRN Reason: Allergy Symptoms Lamotrigine (Lamotrigine 25 Mg Tablet) 50 mg PO BEDTIME [facility] Last Admin: 02/06/23 20:02 Dose: 50 mg Lamotrigine (Lamotrigine 100 Mg Tablet) 200 mg PO BEDTIME [facility] Last Admin: 02/06/23 20:03 Dose: 200 mg Loratadine (Loratadine 10 Mg Tablet) 10 mg PO DAILY [facility] Last Admin: 02/07/23 09:00 Dose: 10 mg Methylprednisolone Sodium Succinate (Methylprednisolone Sod Succ 40 Mg/Ml Vial) 40 mg IVPUSH Q12H [facility] Last Admin: 02/07/23 09:00 Dose: 40 mg Metoprolol Succinate (Metoprolol Succinate Er 25 Mg Tab.Er.24h) 75 mg PO BID [facility]; Protocol Last Admin: 02/07/23 08:59 Dose: 75 mg Nicotine (Nicotine 21 Mg Patch.Td24) 21 mg TRANSDERMA DAILY [facility] Last Admin: 02/07/23 08:59 Dose: 21 mg Nitrofurantoin Macrocrystals (Nitrofurantoin Monohyd/M-Cryst 100 Mg Capsule) 100 mg PO BID [facility] Last Admin: 02/07/23 08:59 Dose: 100 mg Ondansetron HCl (Ondansetron Hcl 4 Mg/2 Ml Vial) 4 mg IVPUSH Q8H PRN PRN Reason: Nausea and Vomiting Penicillin V Potassium (Penicillin V Potassium 250 Mg Tablet) 250 mg PO BID [facility] Last Admin: 02/07/23 08:59 Dose: 250 mg Pharmacy Consult (Consult Rx Perform Med Rec) 1 each MISCELLANE ONCE PRN PRN Reason: Consult order Ropinirole HCl (Ropinirole Hcl 0.5 Mg Tablet) 0.5 mg PO TID [facility] Last Admin: 02/07/23 08:59 Dose: 0.5 mg Sodium Chloride (0.9 % Sodium Chloride Flush 3 Ml Syringe) 3 ml IVFLUSH QSHIFT [facility] Last Admin: 02/07/23 09:00 Dose: 3 ml Warfarin Sodium (Warfarin Sodium 2.5 Mg Tablet) 2.5 mg PO SUMOTUWEFRSA@1800 [facility] Last Admin: 02/06/23 17:53 Dose: 2.5 mg Warfarin Sodium (Warfarin Sodium 5 Mg Tablet) 5 mg PO TH@1800 [facility] Home Medications Medication Instructions Recorded Confirmed Last Taken Type albuterol sulfate 90 mcg/actuation 2 puff inhalation Q4-6H PRN 11/24/21 02/05/23 Unknown History aerosol inhaler Respiratory Distress colchicine 0.6 mg tablet 0.6 mg PO DAILY 11/24/21 02/05/23 02/04/23 History duloxetine 40 mg capsule,delayed 40 mg PO DAILY 11/24/21 02/05/23 02/04/23 History release sprinkle duloxetine 60 mg capsule,delayed 60 mg PO DAILY 11/24/21 02/05/23 02/04/23 History release loratadine 10 mg tablet 10 mg PO DAILY 11/24/21 02/05/23 02/04/23 History penicillin V potassium 250 mg 250 mg PO BID 11/24/21 02/05/23 02/04/23 History tablet rosuvastatin 10 mg tablet 10 mg PO DAILY 11/24/21 02/05/23 02/04/23 History nitrofurantoin 100 mg PO BID 12/31/21 02/05/23 02/04/23 History monohydrate/macrocrystals 100 mg capsule ropinirole 0.5 mg tablet 0.5 mg PO TID 05/01/22 02/05/23 02/04/23 History budesonide-formoterol HFA 80 2 puff inhalation BID 09/29/22 02/05/23 02/04/23 History mcg-4.5 mcg/actuation aerosol inhaler (Symbicort) clonidine HCl 0.1 mg tablet 0.1 mg PO BID PRN Anxiety 02/05/23 02/05/23 Unknown History cyclobenzaprine 5 mg tablet 5 mg PO BEDTIME PRN muscle spasm 02/05/23 02/05/23 Unknown History ipratropium bromide 21 mcg (0.03 2 spray intranasal BID PRN Allergy 02/05/23 02/05/23 Unknown History %) nasal spray Symptoms lamotrigine 200 mg tablet 200 mg PO BEDTIME 02/05/23 02/05/23 02/04/23 History lamotrigine 25 mg tablet 50 mg PO BEDTIME 02/05/23 02/05/23 02/04/23 History warfarin 2.5 mg tablet 2.5 mg PO SUMOTUWEFRSA@1800 02/05/23 02/05/23 02/04/23 History warfarin 5 mg tablet 5 mg PO TH@1800 02/05/23 02/05/23 Unknown History Physical Exam Vital Signs: Vital Signs: Last Vital Signs Temp 97.8 F 02/07/23 07:34 Pulse 126 H 02/07/23 09:09 Resp 20 02/07/23 09:09 BP 128/90 H 02/07/23 07:34 Pulse Ox 93 02/07/23 07:34 O2 Del Method Room Air 02/07/23 07:34 O2 Flow Rate 2 02/06/23 07:00 BMI result Body Mass Index 40.7 Const: General: cooperative, alert, awake and in distress mild and respiratory Nutritional Appearance: obese Orientation/consciousness: patient oriented x3 HEENT: Head: Yes normocephalic and Yes atraumatic Neck: Neck: Yes trachea midline, Yes supple and Yes other (Difficult to evaluate JVD) Resp: Effort & Inspection: normal respiratory effort Auscultation: wheezes and diminished lung sounds Cardio: Rate: tachycardic Heart sounds: S1 normal heart sound present, S2 normal heart sound present, no click, no gallops and no murmurs Skin: General skin exam: no rashes or lesions noted Neuro: General: patient oriented x3 and No no focal motor deficits Extrem: General: No clubbing, No cyanosis and Yes edema Objective Labs and Meds 02/06/23 06:27 02/06/23 06:27 Lab results: Laboratory Results - last 24 hr 02/07/23 09:46 PT 27.8 H INR 2.3 H EKG shows atrial flutter with rapid ventricular response with 2 is to 1 conduction Assessment and Plan (1) Atrial flutter with rapid ventricular response: Status: Acute Patient with persistent atrial flutter rapid ventricular response despite being on multiple agents including Multaq therapy for rhythm control. Has remained with rapid atrial flutter. She has been advise synchronized cardioversion the past but she has been very hesitant about it. She is on oral anticoagulation warfarin but I did not think that she has had good control of for INRs. She would benefit from direct oral anticoagulation. Would switch her to Xarelto 20 mg daily starting today. Also would stop Multaq given findings suggestive heart failure predominantly right heart failure syndrome. Start on IV Cardizem drip for rate control. Bedside echocardiogram. I think she will require rhythm control approach with synchronized cardioversion during this hospitalization. She require DANIELLE guided synchronized cardioversion given that her INRs have been labile. Discussed with her the management plan. She understands and agrees. Continue management of COPD. (2) Right heart failure: Status: Acute Right heart failure syndrome secondary to persistent atrial flutter syndrome with obesity hypoventilation obstructive sleep apnea. Advise low-dose diuretic therapy with Lasix 20 mg IV b.i.d.. Strict intake and output chart needs to be pursued. Continue pursue rhythm control approach. Continue CPAP therapy. Continue management of COPD. Will follow with you. Time Spent With Patient Time: Total time managing care of this patient today ____ minutes. Procedures Date of Service Date of Service: 02/07/23
--- NOTE | 2023-02-07 12:11 | P.PNIM_ITS ---
Subjective Subjective Date of Service: 02/07/23 Interval History: Sitting comfortably denies chest pain, no palpitations no shortness of breath wants to be discharged home but noted to have atrial flutter 120-130 range patient denies lightheadedness, no dizziness, no chest pain denies orthopnea, no PND, no other acute issues overnight. Review of Systems All other system reviewed and negative Physical Exam Vital Signs: Vital Signs: Last Vital Signs Temp 97.8 F 02/07/23 07:34 Pulse 126 H 02/07/23 09:09 Resp 20 02/07/23 09:09 BP 128/90 H 02/07/23 07:34 Pulse Ox 93 02/07/23 07:34 O2 Del Method Room Air 02/07/23 07:34 O2 Flow Rate 2 02/06/23 07:00 BMI result Body Mass Index 40.7 Const: Other: General:? Awake alert x3, sitting comfortably, no acute distress Neck no?JVD Resp:? CTA bilateral, no wheeze, no rhonchi CVS:irregularly irregular GI:? Abdomen soft nontender bowel sounds audible Skin: No rash Extremities no pittingedema discoloration likely due to chronic venous stasis Neuro:? motor grossly intact Psych: appropriate affect Objective Data Active Medications Acetaminophen (Acetaminophen 325 Mg Tablet) 650 mg PO Q6H PRN PRN Reason: Pain, Mild (Pain Scale 1-3) Albuterol Sulfate (Albuterol Sulfate 90 Mcg 8 Gm Inhaler) 2 puff INHALE Q4H PRN PRN Reason: Respiratory Distress Albuterol/Ipratropium (Albuterol/Iprat 2.5/0.5mg 3 Ml Ampul.Neb) 3 ml INHALE RQ4H PRN PRN Reason: Shortness of Breath/Wheezing Albuterol/Ipratropium (Albuterol/Iprat 2.5/0.5mg 3 Ml Ampul.Neb) 3 ml INHALE RQ6H WHILE AWAKE [facility] Last Admin: 02/07/23 09:08 Dose: 3 ml Documented By: KASIA Atorvastatin Calcium (Atorvastatin Calcium 40 Mg Tablet) 40 mg PO DAILY [facility] Last Admin: 02/07/23 08:59 Dose: 40 mg Documented By: YUE Clonidine HCl (Clonidine Hcl 0.1 Mg Tablet) 0.1 mg PO BID PRN; Protocol PRN Reason: Anxiety Last Admin: 02/06/23 20:02 Dose: 0.1 mg Documented By: TOLU Colchicine (Colchicine 0.6 Mg Tablet) 0.6 mg PO DAILY [facility] Last Admin: 02/07/23 09:00 Dose: 0.6 mg Documented By: YUE Cyclobenzaprine HCl (Cyclobenzaprine Hcl 5 Mg Tablet) 5 mg PO BEDTIME PRN PRN Reason: muscle spasm Last Admin: 02/06/23 20:03 Dose: 5 mg Documented By: TOLU Docusate Sodium (Docusate Sodium 100 Mg Capsule) 100 mg PO DAILY PRN PRN Reason: Constipation Last Admin: 02/06/23 20:02 Dose: 100 mg Documented By: TOLU Dronedarone (Dronedarone Hcl 400 Mg Tablet) 400 mg PO BID [facility] Last Admin: 02/07/23 08:59 Dose: 400 mg Documented By: YUE Duloxetine HCl (Duloxetine Hcl 20 Mg Capsule.Dr) 40 mg PO DAILY [facility] Last Admin: 02/07/23 08:59 Dose: 40 mg Documented By: YUE Duloxetine HCl (Duloxetine Hcl 60 Mg Capsule.Dr) 60 mg PO DAILY [facility] Last Admin: 02/07/23 08:59 Dose: 60 mg Documented By: YUE Ipratropium [place] (Ipratropium [place] Zia 0.03 % 30 Ml [place]) 2 spray NOSTRIL-B BID PRN PRN Reason: Allergy Symptoms Lamotrigine (Lamotrigine 25 Mg Tablet) 50 mg PO BEDTIME [facility] Last Admin: 02/06/23 20:02 Dose: 50 mg Documented By: TOLU Lamotrigine (Lamotrigine 100 Mg Tablet) 200 mg PO BEDTIME [facility] Last Admin: 02/06/23 20:03 Dose: 200 mg Documented By: TOLU Loratadine (Loratadine 10 Mg Tablet) 10 mg PO DAILY [facility] Last Admin: 02/07/23 09:00 Dose: 10 mg Documented By: YUE Methylprednisolone Sodium Succinate (Methylprednisolone Sod Succ 40 Mg/Ml Vial) 40 mg IVPUSH Q12H [facility] Last Admin: 02/07/23 09:00 Dose: 40 mg Documented By: YUE Metoprolol Succinate (Metoprolol Succinate Er 25 Mg Tab.Er.24h) 75 mg PO BID [facility]; Protocol Last Admin: 02/07/23 08:59 Dose: 75 mg Documented By: YUE Nicotine (Nicotine 21 Mg Patch.Td24) 21 mg TRANSDERMA DAILY [facility] Last Admin: 02/07/23 08:59 Dose: 21 mg Documented By: YUE Nitrofurantoin Macrocrystals (Nitrofurantoin Monohyd/M-Cryst 100 Mg Capsule) 100 mg PO BID [facility] Last Admin: 02/07/23 08:59 Dose: 100 mg Documented By: YUE Ondansetron HCl (Ondansetron Hcl 4 Mg/2 Ml Vial) 4 mg IVPUSH Q8H PRN PRN Reason: Nausea and Vomiting Penicillin V Potassium (Penicillin V Potassium 250 Mg Tablet) 250 mg PO BID [facility] Last Admin: 02/07/23 08:59 Dose: 250 mg Documented By: YUE Pharmacy Consult (Consult Rx Perform Med Rec) 1 each MISCELLANE ONCE PRN PRN Reason: Consult order Ropinirole HCl (Ropinirole Hcl 0.5 Mg Tablet) 0.5 mg PO TID [facility] Last Admin: 02/07/23 08:59 Dose: 0.5 mg Documented By: YUE Sodium Chloride (0.9 % Sodium Chloride Flush 3 Ml Syringe) 3 ml IVFLUSH QSHIFT [facility] Last Admin: 02/07/23 09:00 Dose: 3 ml Documented By: YUE Warfarin Sodium (Warfarin Sodium 2.5 Mg Tablet) 2.5 mg PO SUMOTUWEFRSA@1800 [facility] Last Admin: 02/06/23 17:53 Dose: 2.5 mg Documented By: YUE Warfarin Sodium (Warfarin Sodium 5 Mg Tablet) 5 mg PO TH@1800 [facility] Labs 02/06/23 06:27 02/06/23 06:27 Labs: Laboratory Results - last 24 hr 02/07/23 09:46 PT 27.8 H INR 2.3 H Assessment and Plan (1) Atrial flutter: Status: Acute (2) Acute exacerbation of chronic obstructive pulmonary disease: Status: Acute Plan 57-year-old female with past medical history of COPD on chronic BiPAP at bedtime presents the hospital in COPD exacerbation as well as requiring BiPAP #? acute COPD exacerbation with chronic hypoxic respiratory failure on 1 L of home oxygen. -? stable oxygenation, no hypoxia on home oxygen -? shortness of breath and cough improved, will DC IV steroids changed to by mouth prednisone, and changed to DuoNeb p.r.n. only -? chest x-ray negative for pneumonia - patient has electricity turned back at home #? a flutter with RVR -? noted to have persistent atrial flutter with heart rate in 120s to 130 range on metoprolol 75 mg b.i.d. and Multaq 400mg bid Treated with additional dose of hydroxyzine and metoprolol with no significant improvement Case discussed with Dr. Mcclain recommend IV Cardizem drip, echocardiogram and recommend to switch Coumadin to Xarelto, since INR greater than 2 will DC Coumadin today repeat PT INR at a.m. and start Xarelto if INR less than 2, possible cardioversion on Thursday #? chronic pain -? continue oxycodone, Cymbalta and Flexeril. #? restless leg syndrome - Continue Requip #? hyperlipidemia -? continue Lipitor 40. # mood disorder on multiple medications, complaining of anxiety will give hydroxyzine and recommend outpatient follow-up PCP/psych # on chronic antibiotics to prevent recurrent UTI and cellulitis. # obesity recommended weight reduction and low-calorie diet # tobacco use disorder placed on nicotine patch 21 mg Q 24 hours patient is smoking 1 pack daily strongly recommend to abstain from smoking. ?DVT prophylaxis: Coumadin Time Spent With Patient Time: Total time managing care of this patient today ____ minutes. Quality Stroke Does the patient have a stroke diagnosis?: No VTE Prior VTE?: No VTE Risk Level:: Medical - moderate - high VTE Device Contraindication: Treatment Not Indicated VTE Drug Contraindication: N/A - Med Ordered
[2023-02-07] MEDS: dilTIAZem HCL 125 MG in 0.9 % Sodium Chloride 100 ML 10 MG IVCONT (13:07)
[2023-02-07] MEDS: lamoTRIgine 100 MG TABLET 200 MG PO (21:19)
[2023-02-07] MEDS: lamoTRIgine 25 MG TABLET 50 MG PO (21:19)
[2023-02-07] MEDS: dilTIAZem HCL 125 MG in 0.9 % Sodium Chloride 100 ML 15 MG IVCONT (21:20)
[2023-02-07] MEDS: Lidocaine 4 % Patch ADH..PATCH 1 PATCH TRANSDERMA (22:56)
[2023-02-08] VITALS (8 sets, daily range): BP systolic 110–138; BP diastolic 61–90; PULSE 56–134; RESP 20; TEMP 36.1–36.5; O2SAT 94–96
--- NOTE | 2023-02-08 04:40 | PC.NURSE ---
This nurse acquired care of this patient at 18:45. Patient reports no chest pain, palpations or discomfort. Patient on cardizem drip at 15mg/hr. Patient aflutter on monitor with rate in 90s to 100s. Patient due for metoprolol 75mg PO. MD notified and ordered to administer medication. At 22:52 patients heart rate is sustating at in the 80s and 90s, MD notifed and ordered to decrease cardizem drip to 10mg/hr. Heart rate was sustaining in the 80s and 90s, MD notified and ordered to decrease cardizem drip to 5mg/hr. Heart was sustaining in the 80s and 90s. MD notified and ordered to hold the cardizem drip. Heart rate is sustaining in the 80s. Will continue to monitor.
[2023-02-08] MEDS: Metoprolol Succinate ER 25 MG TAB.ER.24H 75 MG PO (07:54)
[2023-02-08] MEDS: Colchicine 0.6 MG TABLET PO (07:54)
[2023-02-08] MEDS: DULoxetine HCl 20 MG CAPSULE.DR 40 MG PO (07:54)
[2023-02-08] MEDS: Nitrofurantoin Monohyd/M-Cryst 100 MG CAPSULE PO ×2 (07:55→21:10)
[2023-02-08] MEDS: Nicotine 21 MG PATCH.TD24 TRANSDERMA (07:55)
[2023-02-08] MEDS: Loratadine 10 MG TABLET PO (07:55)
[2023-02-08] MEDS: Penicillin V Potassium 250 MG TABLET PO ×2 (07:55→21:10)
[2023-02-08] MEDS: DULoxetine HCl 60 MG CAPSULE.DR PO (07:55)
[2023-02-08] MEDS: rOPINIRole HCL 0.5 MG TABLET PO ×3 (07:55→21:10)
[2023-02-08] MEDS: Dronedarone HCl 400 MG TABLET PO (07:55)
[2023-02-08] MEDS: Atorvastatin Calcium 40 MG TABLET PO (07:55)
[2023-02-08] MEDS: predniSONE 10 MG TABLET PO (07:55)
[2023-02-08] MEDS: 0.9 % Sodium Chloride Flush 3 ML SYRINGE IVFLUSH ×3 (07:56→21:12)
[2023-02-08] MEDS: Lidocaine 4 % Patch ADH..PATCH 1 PATCH TRANSDERMA (07:56)
[2023-02-08 08:52] LABS: INTERNATIONAL NORM RATIO 1.9 (0.9-1.1); Prothrombin Time 22.3 SEC (10.0-13.1)
--- NOTE | 2023-02-08 11:00 | PM.PNCARD ---
Subjective Subjective Date of Service: 02/08/23 Principal diagnosis: Atrial flutter, right heart failure Review of Systems Constitutional: Reports no additional constitutional complaints Cardiovascular: Denies chest pain, Reports leg edema, Denies lightheadedness, Denies palpitations and Reports dyspnea on exertion Respiratory: Reports dyspnea on exertion Gastrointestinal: Reports no additional gastrointestinal complaints Skin/Breast: Reports system reviewed and no additional complaints, except as docu Reports system reviewed and no additional complaints, except as documented Endocrine: Reports no additional endocrine complaints and Denies palpitations Physical Exam Vital Signs: Last Vital Signs Temp 97.5 F 02/08/23 07:12 Pulse 86 02/08/23 07:12 Resp 20 02/08/23 07:12 BP 122/61 02/08/23 07:12 Pulse Ox 94 02/08/23 07:12 O2 Del Method Room Air 02/08/23 07:12 O2 Flow Rate 2 02/06/23 07:00 BMI result Body Mass Index 40.7 Const General: cooperative, alert, awake and in distress mild and respiratory Nutritional Appearance: obese Orientation/consciousness: patient oriented x3 Neck Neck: Yes trachea midline, Yes supple and Yes other (Difficult to evaluate JVD) Resp Effort & Inspection: normal respiratory effort Auscultation: wheezes and diminished lung sounds Cardio Rate: tachycardic Heart sounds: S1 normal heart sound present, S2 normal heart sound present, no click, no gallops and no murmurs Skin General skin exam: no rashes or lesions noted Neuro General: patient oriented x3 and No no focal motor deficits Extrem General: No clubbing, No cyanosis and Yes edema Objective Labs and Meds 02/06/23 06:27 02/06/23 06:27 Lab results: Laboratory Results - last 24 hr 02/08/23 05:53 PT 22.3 H INR 1.9 H Progress Note: A&P Assessment and plan (1) Right heart failure: Status: Acute Assessment and Plan: Right heart failure due to combination of persistent atrial flutter with evidence of significantly elevated right atrial pressures and pulmonary hypertension. IV Lasix 20 mg IV b.i.d.. Strict intake and output chart. Continue CPAP therapy. Pursue rhythm control approach. Will continue to follow (2) Atrial flutter with rapid ventricular response: Status: Acute Assessment and Plan: Atrial flutter with rapid ventricular response with Cardizem stop prematurely. Patient now with rapid heart rate when awake. Increase metoprolol to 100 mg b.i.d.. Given her heart failure syndrome will stop Multaq therapy. Given her persistent and difficult control atrial flutter with rapid ventricular response will pursue rhythm control approach with DANIELLE guided cardioversion to be scheduled tomorrow. Switch to Xarelto 20 mg daily. P.r.n. Cardizem use. May require amiodarone use. We discussed about various approaches including if required in the future ablation. She is very hesitant about it. Discussed the risks and benefits. She understands. Please keep her NPO after midnight. Will continue to follow with you Time Spent With Patient Time: Total time managing care of this patient today ____ minutes. Progress Note: Quality Stroke Does the patient have a stroke diagnosis?: No Procedures Date of Service Date of Service: 02/08/23
[2023-02-08] MEDS: Rivaroxaban 20 MG TABLET PO (11:05)
[2023-02-08] MEDS: Metoprolol Tartrate 25 MG TABLET PO (11:05)
[2023-02-08] MEDS: Furosemide 20 MG/2 ML VIAL IVPUSH ×2 (11:05→17:38)
--- NOTE | 2023-02-08 11:10 | P.PNIM_ITS ---
Subjective Subjective Date of Service: 02/08/23 Interval History: Complaining of back pain that seems to be chronic for last 30 years , otherwise denies chest pain no palpitation no lightheadedness, no dizziness, IV Cardizem drip. Last night since heart rate was in 40s remains in atrial fibrillation tele monitor showed fluctuating heart rate between 80-120 range. Tolerating diet no nausea no vomiting no abdominal pain. Review of Systems All other system reviewed and negative. Physical Exam Vital Signs: Vital Signs: Last Vital Signs Temp 97.5 F 02/08/23 07:12 Pulse 86 02/08/23 07:12 Resp 20 02/08/23 07:12 BP 122/61 02/08/23 07:12 Pulse Ox 94 02/08/23 07:12 O2 Del Method Room Air 02/08/23 07:12 O2 Flow Rate 2 02/06/23 07:00 BMI result Body Mass Index 40.7 Const: Other: General:? Awake alert x3, sitting comfortably, no acute distress Neck no?JVD Resp:? CTA bilateral, no wheeze, no rhonchi CVS:irregularly irregular GI:? Abdomen soft nontender bowel sounds audible Skin: No rash Extremities no pitting edema, discoloration likely due to chronic venous stasis Neuro:? motor grossly intact Psych: appropriate affect Objective Data Active Medications Acetaminophen (Acetaminophen 325 Mg Tablet) 650 mg PO Q6H PRN PRN Reason: Pain, Mild (Pain Scale 1-3) Albuterol Sulfate (Albuterol Sulfate 90 Mcg 8 Gm Inhaler) 2 puff INHALE Q4H PRN PRN Reason: Respiratory Distress Albuterol/Ipratropium (Albuterol/Iprat 2.5/0.5mg 3 Ml Ampul.Neb) 3 ml INHALE RQ4H PRN PRN Reason: Shortness of Breath/Wheezing Atorvastatin Calcium (Atorvastatin Calcium 40 Mg Tablet) 40 mg PO DAILY [facility] Last Admin: 02/08/23 07:55 Dose: 40 mg Documented By: YUE Clonidine HCl (Clonidine Hcl 0.1 Mg Tablet) 0.1 mg PO BID PRN; Protocol PRN Reason: Anxiety Last Admin: 02/06/23 20:02 Dose: 0.1 mg Documented By: TOLU Colchicine (Colchicine 0.6 Mg Tablet) 0.6 mg PO DAILY [facility] Last Admin: 02/08/23 07:54 Dose: 0.6 mg Documented By: YUE Cyclobenzaprine HCl (Cyclobenzaprine Hcl 5 Mg Tablet) 5 mg PO BEDTIME PRN PRN Reason: muscle spasm Last Admin: 02/06/23 20:03 Dose: 5 mg Documented By: TOLU Diltiazem HCl (Diltiazem Hcl 50 Mg/10 Ml Vial) 5 mg IVPUSH Q4H PRN PRN Reason: heart rate >120 Docusate Sodium (Docusate Sodium 100 Mg Capsule) 100 mg PO DAILY PRN PRN Reason: Constipation Last Admin: 02/06/23 20:02 Dose: 100 mg Documented By: TOLU Duloxetine HCl (Duloxetine Hcl 20 Mg Capsule.) 40 mg PO DAILY [facility] Last Admin: 02/08/23 07:54 Dose: 40 mg Documented By: YUE Duloxetine HCl (Duloxetine Hcl 60 Mg Capsule.) 60 mg PO DAILY [facility] Last Admin: 02/08/23 07:55 Dose: 60 mg Documented By: YUE Furosemide (Furosemide 20 Mg/2 Ml Vial) 20 mg IVPUSH BID@0900,1800 [facility]; Protocol Last Admin: 02/08/23 11:05 Dose: 20 mg Documented By: YUE Diltiazem HCl 125 mg/ Sodium (Chloride) 125 mls @ 0 mls/hr IVCONT .Q0M [facility]; Protocol Last Titration: 02/08/23 01:49 Dose: 0 mg/hr, 0 mls/hr Documented By: USMAN Ipratropium [place] (Ipratropium [place] Zia 0.03 % 30 Ml [place]) 2 spray NOSTRIL-B BID PRN PRN Reason: Allergy Symptoms Lamotrigine (Lamotrigine 25 Mg Tablet) 50 mg PO BEDTIME [facility] Last Admin: 02/07/23 21:19 Dose: 50 mg Documented By: USMAN Lamotrigine (Lamotrigine 100 Mg Tablet) 200 mg PO BEDTIME [facility] Last Admin: 02/07/23 21:19 Dose: 200 mg Documented By: USMAN Lidocaine (Lidocaine 4 % Patch Adh..Patch) 1 patch TRANSDERMA DAILY [facility]; Protocol Last Admin: 02/08/23 07:56 Dose: 1 patch Documented By: YUE Loratadine (Loratadine 10 Mg Tablet) 10 mg PO DAILY [facility] Last Admin: 02/08/23 07:55 Dose: 10 mg Documented By: YUE Metoprolol Succinate (Metoprolol Succinate Er 100 Mg Tab.Er.24h) 100 mg PO BID [facility]; Protocol Nicotine (Nicotine 21 Mg Patch.Td24) 21 mg TRANSDERMA DAILY [facility] Last Admin: 02/08/23 07:55 Dose: 21 mg Documented By: YUE Nitrofurantoin Macrocrystals (Nitrofurantoin Monohyd/M-Cryst 100 Mg Capsule) 100 mg PO BID [facility] Last Admin: 02/08/23 07:55 Dose: 100 mg Documented By: YUE Ondansetron HCl (Ondansetron Hcl 4 Mg/2 Ml Vial) 4 mg IVPUSH Q8H PRN PRN Reason: Nausea and Vomiting Penicillin V Potassium (Penicillin V Potassium 250 Mg Tablet) 250 mg PO BID [facility] Last Admin: 02/08/23 07:55 Dose: 250 mg Documented By: YUE Pharmacy Consult (Consult Rx Perform Med Rec) 1 each MISCELLANE ONCE PRN PRN Reason: Consult order Prednisone (Prednisone 10 Mg Tablet) 10 mg PO DAILY [facility] Last Admin: 02/08/23 07:55 Dose: 10 mg Documented By: YUE Rivaroxaban (Rivaroxaban 20 Mg Tablet) 20 mg PO DAILY [facility] Last Admin: 02/08/23 11:05 Dose: 20 mg Documented By: YUE Ropinirole HCl (Ropinirole Hcl 0.5 Mg Tablet) 0.5 mg PO TID [facility] Last Admin: 02/08/23 07:55 Dose: 0.5 mg Documented By: YUE Sodium Chloride (0.9 % Sodium Chloride Flush 3 Ml Syringe) 3 ml IVFLUSH QSHIFT [facility] Last Admin: 02/08/23 07:56 Dose: 3 ml Documented By: YUE Labs 02/06/23 06:27 02/06/23 06:27 Labs: Laboratory Results - last 24 hr 02/08/23 05:53 PT 22.3 H INR 1.9 H Assessment and Plan (1) Atrial flutter: Status: Acute (2) Acute exacerbation of chronic obstructive pulmonary disease: Status: Acute Plan 57-year-old female with past medical history of COPD on chronic BiPAP at bedtime presents the hospital in COPD exacerbation requiring BiPAP, patient had no electricity at home therefore was unable to use her BiPAP #? acute COPD exacerbation with chronic hypoxic respiratory failure on 1 L of home oxygen. -? stable oxygenation, no hypoxia on home oxygen -? shortness of breath and cough resolved s/p IV steroids,on prednisone 10mg po d 2/5, and DuoNeb p.r.n. only -? chest x-ray negative for pneumonia - patient has electricity turned back at home #? a flutter with RVR -? noted to have persistent atrial flutter with heart rate in 120s to 130 range on metoprolol 75 mg b.i.d. and Multaq 400mg bid Patient treated with IV Cardizem drip subsequently discontinued due to heart rate in 80s, tele monitor showed fluctuating atrial flutter between 80-120 range Case discussed with Dr. Srinivasan he recommend to discontinue Multaq, increase dose of metoprolol to 100 mg b.i.d. and use Cardizem IV as needed for heart rate greater than 120 Patient will be NPO midnight for DANIELLE cardioversion at a.m. Since patient INR was fluctuating therefore Coumadin discontinued patient started on Xarelto 20 mg daily from today # right heart failure no acute exacerbation BNP 435, chest x-ray showed no evidence of CHF, echocardiogram showed EF 50-55% and elevated right ventricular pressure, patient asymptomatic IV Lasix 20 mg b.i.d. today and reassess for continued diuretic use follow I's /os and BMP #? chronic pain -? continue oxycodone, Cymbalta and Flexeril. #? restless leg syndrome - Continue Requip #? hyperlipidemia -? continue Lipitor 40. # mood disorder on multiple medications, complaining of anxiety will give hydroxyzine and recommend outpatient follow-up PCP/psych # on chronic antibiotics to prevent recurrent UTI and cellulitis. # obesity recommended weight reduction and low-calorie diet # tobacco use disorder placed on nicotine patch 21 mg Q 24 hours patient is smoking 1 pack daily strongly recommend to abstain from smoking. ?DVT prophylaxis: Coumadin Patient will need continued inpatient hospitalization for treatment of persistent atrial flutter and right heart failure. Time Spent With Patient Time: Total time managing care of this patient today ____ minutes. Quality Stroke Does the patient have a stroke diagnosis?: No VTE Prior VTE?: No VTE Risk Level:: Medical - moderate - high VTE Device Contraindication: Treatment Not Indicated VTE Drug Contraindication: N/A - Med Ordered
[2023-02-08] MEDS: dilTIAZem HCL 50 MG/10 ML VIAL IVPUSH (12:29)
[2023-02-08] MEDS: lamoTRIgine 25 MG TABLET 50 MG PO (21:10)
[2023-02-08] MEDS: Metoprolol Succinate ER 100 MG TAB.ER.24H PO (21:11)
[2023-02-08] MEDS: lamoTRIgine 100 MG TABLET 200 MG PO (21:11)
[2023-02-09] VITALS (13 sets, daily range): BP systolic 80–132; BP diastolic 40–99; PULSE 57–132; RESP 16–20; TEMP 36.1–37; O2SAT 93–98
[2023-02-09] MEDS: oxyCODONE HCl Immed Release 5 MG TABLET PO ×3 (03:45→20:10)
[2023-02-09] MEDS: Acetaminophen 325 MG TABLET 650 MG PO (03:45)
--- NOTE | 2023-02-09 03:49 | PC.NURSE ---
Ptc/o 05/05 pain. States Tylenol doesn't help, hot packs applied with no effect. MD notified and PRN oxycodone ordered.
--- NOTE | 2023-02-09 07:00 | CA_ITS ---
Transesophageal Echocardiogram Patient (Last, First, Middle): Shruthi Orosco, Gender: Female Date of : 1965 Age: 57 Procedure Date: 02/09/2023 Procedure Type: Transesophageal Echocardiogram Location: [facility] [place] Height: 160. cm Weight: 104. kg BSA: 2.05 m2 Heart Rate: bpm Commercial Development Manager: BUZZ Referring MD: David Mcqueen MD Symptoms: Pre cardioversion to rule out thrombus Conclusion: ??? Normal left ventricular size and systolic function. The visually estimated ejection fraction is between 55-60%. ??? Normal right ventricular cavity size. There is low normal right ventricular systolic function. ??? There is no evidence of a thrombus in the left atrial appendage. Findings Procedure Information Consent was obtained prior to the procedure. The adult 3D probe was passed with no difficulty. Left Ventricle Normal left ventricular size and systolic function. The visually estimated ejection fraction is between 55-60%. There is no evidence of regional wall motion abnormalities. Diastolic function is indeterminate on the basis of available data. Right Ventricle Normal right ventricular cavity size. There is low normal right ventricular systolic function. Atria There is no evidence of a thrombus in the left atrial appendage. Aortic Valve There is a normal trileaflet aortic valve. There is mild to moderate aortic valve regurgitation. Mitral Valve Normal mitral valve structure and function. There is trace mitral valve regurgitation. Pulmonic Valve Normal pulmonic valve structure and function. There is trace pulmonic valve regurgitation. Tricuspid Valve Normal tricuspid valve structure. There is mild tricuspid valve regurgitation. Great Vessels Small plaque is seen in the descending thoracic aorta. Venous The inferior vena cava was not well visualized. Pericardium/Pleural There is no evidence of pericardial effusion. Measurements Tricuspid Valve TR Pk Carlos: 2.52 TR Pk Grad: 25.00 RVSP: 28.00 Updated by Jordan Orozco on 03:18 PM with Status of Final Jordan Orozco MD electronically signed on 02/09/2023 3:18:53 PM with status of Final
[2023-02-09 08:11] LABS: INTERNATIONAL NORM RATIO 2.1 (0.9-1.1); Prothrombin Time 24.6 SEC (10.0-13.1)
[2023-02-09] MEDS: Rivaroxaban 20 MG TABLET PO (08:40)
[2023-02-09] MEDS: Metoprolol Succinate ER 100 MG TAB.ER.24H PO (08:40)
[2023-02-09] MEDS: rOPINIRole HCL 0.5 MG TABLET PO ×2 (08:40→20:10)
[2023-02-09] MEDS: Loratadine 10 MG TABLET PO (08:40)
[2023-02-09] MEDS: Penicillin V Potassium 250 MG TABLET PO ×2 (08:40→20:11)
[2023-02-09] MEDS: DULoxetine HCl 20 MG CAPSULE.DR 40 MG PO (08:40)
[2023-02-09] MEDS: DULoxetine HCl 60 MG CAPSULE.DR PO (08:40)
[2023-02-09] MEDS: predniSONE 10 MG TABLET PO (08:40)
[2023-02-09] MEDS: Atorvastatin Calcium 40 MG TABLET PO (08:40)
[2023-02-09] MEDS: Nitrofurantoin Monohyd/M-Cryst 100 MG CAPSULE PO ×2 (08:40→20:11)
[2023-02-09] MEDS: 0.9 % Sodium Chloride Flush 3 ML SYRINGE IVFLUSH ×2 (08:41→17:15)
[2023-02-09] MEDS: Nicotine 21 MG PATCH.TD24 TRANSDERMA (08:41)
[2023-02-09] MEDS: Furosemide 20 MG/2 ML VIAL IVPUSH ×2 (08:41→17:15)
[2023-02-09] MEDS: Colchicine 0.6 MG TABLET PO (08:41)
--- NOTE | 2023-02-09 10:40 | PM.PNCARD ---
Subjective Subjective Date of Service: 02/09/23 Principal diagnosis: Atrial flutter, right heart failure Interval history: Seen examined at bedside. Telemetry reviewed an showing atrial flutter and 130 beats per minute. She is on Xarelto. Physical Exam Vital Signs: Last Vital Signs Temp 97.4 F 02/09/23 07:34 Pulse 104 H 02/09/23 07:34 Resp 18 02/09/23 07:34 BP 132/99 H 02/09/23 07:34 Pulse Ox 93 02/09/23 07:34 O2 Del Method Room Air 02/09/23 07:34 O2 Flow Rate 2 02/06/23 07:00 BMI result Body Mass Index 40.7 GENERAL APPEARANCE: in no acute distress, pleasant. NECK: no carotid bruit, no jugular venous distention. SKIN: no suspicious lesions, warm and dry. HEART: no murmurs, regular rate and rhythm. Tachycardic. LUNGS: Mild expiratory wheezes. ABDOMEN: soft, nontender. EXTREMITIES: no edema. PERIPHERAL PULSES: equal. NEUROLOGIC: No gross deficits, AAO X 3 Objective Labs and Meds 02/06/23 06:27 02/06/23 06:27 Lab results: Laboratory Results - last 24 hr 02/09/23 07:49 PT 24.6 H INR 2.1 H Progress Note: A&P Assessment and plan (1) Right heart failure: Status: Acute (2) Atrial flutter: Status: Acute Plan [age] year female with background of COPD and atrial flutter presenting with COPD exacerbation and evidence of right heart failure. She has been diuresed. She continues to be in uncontrolled atrial flutter. Plan is to do DANIELLE cardioversion today. She is on Xarelto. Her INR has been fluctuant and she had recent readings of 1.9 on 2 occasions. I thing is safer to do DANIELLE cardioversion. Keep her NPO. Adding amiodarone 400 mg t.i.d.. I discussed with her about sotalol but she does not want to stay in the hospital for 3 days. Thank you for allowing me to participate in the care of your patient. Please feel free to contact me if you have any questions. Time Spent With Patient Time: Total time managing care of this patient today ____ minutes. Progress Note: Quality Stroke Does the patient have a stroke diagnosis?: No Procedures Date of Service Date of Service: 02/09/23
[2023-02-09 10:43] LABS: Anion Gap 14 (12-20); Blood Urea Nitrogen 17 mg/dL (9-16); Calcium 9.4 mg/dL (8.4-10.2); Carbon Dioxide 31 mmol/L (22-29); Chloride 100 mmol/L (96-108); Creatinine Clr Calc Pharmacy 83.2; Estimated Glomerular Filt Rate > 60; Glucose Random 125 mg/dL (60-115); Sodium 141 mmol/L (135-145)
[2023-02-09] MEDS: Amiodarone HCL 200 MG TABLET 400 MG PO ×2 (11:55→20:10)
--- NOTE | 2023-02-09 12:52 | HO.PM.IMPN ---
Subjective Subjective Date of Service: 02/09/23 Interval History: no dyspnea or wheezing in persistent atrial flutter with rate in 130s Review of Systems Review of Systems: Yes all other systems are reviewed and are negative Physical Exam Vital Signs: Vital Signs: Last Vital Signs Temp 97.4 F 02/09/23 07:34 Pulse 104 H 02/09/23 07:34 Resp 18 02/09/23 07:34 BP 132/99 H 02/09/23 07:34 Pulse Ox 93 02/09/23 07:34 O2 Del Method Room Air 02/09/23 07:34 O2 Flow Rate 2 02/06/23 07:00 BMI result Body Mass Index 40.7 Gen: in no acute distress HEENT: sclera anicteric, moist mucus membranes Neck: supple Lungs: clear to auscultation bilaterally Heart: regular, rapid Abd: soft, non-tender, non-distended, morbid obesity Ext: no edema Skin: warm/well-perfused Neuro: alert and oriented x3, no focal findings Psych: appropriate affect Objective Data Active Medications Acetaminophen (Acetaminophen 325 Mg Tablet) 650 mg PO Q6H PRN PRN Reason: Pain, Mild (Pain Scale 1-3) Last Admin: 02/09/23 03:45 Dose: 650 mg Documented By: KATHY Albuterol Sulfate (Albuterol Sulfate 90 Mcg 8 Gm Inhaler) 2 puff INHALE Q4H PRN PRN Reason: Respiratory Distress Albuterol/Ipratropium (Albuterol/Iprat 2.5/0.5mg 3 Ml Ampul.Neb) 3 ml INHALE RQ4H PRN PRN Reason: Shortness of Breath/Wheezing Amiodarone HCl (Amiodarone Hcl 200 Mg Tablet) 400 mg PO TID [facility] Last Admin: 02/09/23 11:55 Dose: 400 mg Documented By: SATISH Atorvastatin Calcium (Atorvastatin Calcium 40 Mg Tablet) 40 mg PO DAILY [facility] Last Admin: 02/09/23 08:40 Dose: 40 mg Documented By: SATISH Clonidine HCl (Clonidine Hcl 0.1 Mg Tablet) 0.1 mg PO BID PRN; Protocol PRN Reason: Anxiety Last Admin: 02/06/23 20:02 Dose: 0.1 mg Documented By: TOLU Cyclobenzaprine HCl (Cyclobenzaprine Hcl 5 Mg Tablet) 5 mg PO BEDTIME PRN PRN Reason: muscle spasm Last Admin: 02/06/23 20:03 Dose: 5 mg Documented By: TOLU Docusate Sodium (Docusate Sodium 100 Mg Capsule) 100 mg PO DAILY PRN PRN Reason: Constipation Last Admin: 02/06/23 20:02 Dose: 100 mg Documented By: TOLU Duloxetine HCl (Duloxetine Hcl 20 Mg Capsule.) 40 mg PO DAILY [facility] Last Admin: 02/09/23 08:40 Dose: 40 mg Documented By: SATISH Duloxetine HCl (Duloxetine Hcl 60 Mg Capsule.) 60 mg PO DAILY [facility] Last Admin: 02/09/23 08:40 Dose: 60 mg Documented By: SATISH Furosemide (Furosemide 20 Mg/2 Ml Vial) 20 mg IVPUSH BID@0900,1800 [facility]; Protocol Last Admin: 02/09/23 08:41 Dose: 20 mg Documented By: SATISH Ipratropium [place] (Ipratropium [place] Zia 0.03 % 30 Ml [place]) 2 spray NOSTRIL-B BID PRN PRN Reason: Allergy Symptoms Lamotrigine (Lamotrigine 25 Mg Tablet) 50 mg PO BEDTIME [facility] Last Admin: 02/08/23 21:10 Dose: 50 mg Documented By: KATHY Lamotrigine (Lamotrigine 100 Mg Tablet) 200 mg PO BEDTIME [facility] Last Admin: 02/08/23 21:11 Dose: 200 mg Documented By: KATHY Lidocaine (Lidocaine 4 % Patch Adh..Patch) 1 patch TRANSDERMA DAILY [facility]; Protocol Last Admin: 02/08/23 07:56 Dose: 1 patch Documented By: YUE Loratadine (Loratadine 10 Mg Tablet) 10 mg PO DAILY [facility] Last Admin: 02/09/23 08:40 Dose: 10 mg Documented By: SATISH Metoprolol Succinate (Metoprolol Succinate Er 100 Mg Tab.Er.24h) 100 mg PO BID [facility]; Protocol Last Admin: 02/09/23 08:40 Dose: 100 mg Documented By: SATISH Nicotine (Nicotine 21 Mg Patch.Td24) 21 mg TRANSDERMA DAILY [facility] Last Admin: 02/09/23 08:41 Dose: 21 mg Documented By: SATISH Nitrofurantoin Macrocrystals (Nitrofurantoin Monohyd/M-Cryst 100 Mg Capsule) 100 mg PO BID [facility] Last Admin: 02/09/23 08:40 Dose: 100 mg Documented By: SATISH Ondansetron HCl (Ondansetron Hcl 4 Mg/2 Ml Vial) 4 mg IVPUSH Q8H PRN PRN Reason: Nausea and Vomiting Oxycodone HCl (Oxycodone Hcl Immed Release 5 Mg Tablet) 5 mg PO Q4H PRN PRN Reason: Pain, Severe (Pain Scale 7-10) Last Admin: 02/09/23 08:40 Dose: 5 mg Documented By: SATISH Penicillin V Potassium (Penicillin V Potassium 250 Mg Tablet) 250 mg PO BID [facility] Last Admin: 02/09/23 08:40 Dose: 250 mg Documented By: SATISH Pharmacy Consult (Consult Rx Perform Med Rec) 1 each MISCELLANE ONCE PRN PRN Reason: Consult order Prednisone (Prednisone 10 Mg Tablet) 10 mg PO DAILY [facility] Last Admin: 02/09/23 08:40 Dose: 10 mg Documented By: SATISH Rivaroxaban (Rivaroxaban 20 Mg Tablet) 20 mg PO DAILY [facility] Last Admin: 02/09/23 08:40 Dose: 20 mg Documented By: SATISH Ropinirole HCl (Ropinirole Hcl 0.5 Mg Tablet) 0.5 mg PO TID [facility] Last Admin: 02/09/23 08:40 Dose: 0.5 mg Documented By: SATISH Sodium Chloride (0.9 % Sodium Chloride Flush 3 Ml Syringe) 3 ml IVFLUSH QSHIFT [facility] Last Admin: 02/09/23 08:41 Dose: 3 ml Documented By: SATISH Labs 02/06/23 06:27 02/09/23 07:49 Labs: Laboratory Results - last 24 hr 02/09/23 02/09/23 07:49 07:49 PT 24.6 H INR 2.1 H Anion Gap 14 Estim Creat Clear Calc 83.2 Estimated GFR > 60 Random Glucose 125 H Calcium 9.4 Assessment and Plan (1) Atrial flutter: Status: Acute (2) Acute exacerbation of chronic obstructive pulmonary disease: Status: Acute Plan d4 57yo F with COPD on chronic BiPAP admitted for COPD exac after losing electricity at home and thus was unable to use BiPAP now with persistent atrial flutter acute COPD exac with chronic hypoxic resp failrue on 1L home O2 - off IV steroids, now on prednisone 10 mg d3/5, prn nebs - no PNA - pt's electricity is back on persistent atrial flutter with RVR - off diltiazem drip - discontinue dronaderaone - increased metoprolol succinate - fluctuating INR on warfarin, changed to rivaroxaban 02/08 - NPO for DANIELLE-guided cardioversion today - started amiodarone acute/chronic R heart failure - continue IV furosemide chronic pain - oxycodone, duloxetine, cyclobenzaprine RLS - ropinirole HLD - atorvastatin mood disorder recurrent UTI - suppressive nitrofurantoin recurrent cellulitis - suppressive PCN morbid obesity - diet/exercise counseling mood disorder - lamotrigine, duloxetine tobacco abuse - NRT VTE ppx - rivaroxaban dispo - anticipate home eventually In my clinical judgment, the patient requires continued inpatient hospitalization for the following reasons: cardioversion + IV diuresis Time Spent With Patient Time: Total time managing care of this patient today ___45_ minutes. Quality Stroke Does the patient have a stroke diagnosis?: No VTE Prior VTE?: No VTE Risk Level:: Medical - moderate - high VTE Device Contraindication: Treatment Not Indicated VTE Drug Contraindication: N/A - Med Ordered
--- NOTE | 2023-02-09 13:33 | P.CONAN_ITS ---
[facility] Active Problems Active Problems: All Active Problems (Updated 02/07/23 @ 13:43 by David Mcqueen MD) Right heart failure (Acute) Atrial flutter with rapid ventricular response (Acute) Atrial flutter (Acute) Acute exacerbation of chronic obstructive pulmonary disease (Acute) History of total right knee replacement (Acute) Preop cardiovascular exam (Acute) Echocardiogram findings abnormal, without diagnosis (Acute) Diabetes (Acute) HLD (hyperlipidemia) (Acute) HTN (hypertension) (Acute) Atrial flutter (Acute) Chronic back pain (Acute) Past Medical History Medical History Arthritis COPD (chronic obstructive pulmonary disease) Diabetes Disc disorder of cervical region Disc disorder of lumbar region DVT of axillary vein, acute HLD (hyperlipidemia) HTN (hypertension) Scoliosis Family History Family History Father Stroke Other Diabetes Surgical History Surgical History Previous back surgery Status post knee replacement History of Problems with Anesthesia: Yes Social History Social History Household Members: Children Household Members Other:: daughter Housing: Condominium Do you presently have visiting nurse or other home services: Yes Alcohol intake: never Patient Tobacco Use Status: Current everyday Tobacco user Tobacco use type: Cigarette Cigarette Packs Per Day: 1 Cigarettes Per Day: 20.0 Years Smoked: 40 +/- Smoked in Last 30 Days: No Patient Interested in Nicotine Replacement: Yes Patient Given Instructions on How to Stop Smoking: No Second Hand Smoke Exposure: No Use of substances other than those prescribed or required for medical reasons: No Currently Displaying Signs/Symptoms of Drug Intoxication Withdrawal: No Any prior treatment program specific to substance use: No Have you been hit, kicked, punched, or otherwise hurt by someone within the past year? If so, by whom?: No Do you feel safe in your current relationship?: Yes Is there a partner from a previous relationship who is making you feel unsafe now?: No Are you made to feel afraid or neglected: No Advance Directives: Yes Advance Directives on File: Yes Advance Directives Date on File: 11/24/21 Do you have thoughts of harming others: None Do you have a plan to hurt others: No Plan Recently lost weight without trying: Yes How much weight loss: Unsure Eating poorly because of decreased appetite: No Nutrition screen score: 4 Nutrition Risks: No Nutritional Risk Patient : No : No Poor oral hygiene: No service: No Meds Allergies Allergy/AdvReac Type Severity Reaction Status Date / Time adhesive Allergy Rash Verified 09/29/22 14:58 Active Medications: Current Medications Acetaminophen (Acetaminophen 325 Mg Tablet) 650 mg PO Q6H PRN PRN Reason: Pain, Mild (Pain Scale 1-3) Last Admin: 02/09/23 03:45 Dose: 650 mg Albuterol Sulfate (Albuterol Sulfate 90 Mcg 8 Gm Inhaler) 2 puff INHALE Q4H PRN PRN Reason: Respiratory Distress Albuterol/Ipratropium (Albuterol/Iprat 2.5/0.5mg 3 Ml Ampul.Neb) 3 ml INHALE RQ4H PRN PRN Reason: Shortness of Breath/Wheezing Amiodarone HCl (Amiodarone Hcl 200 Mg Tablet) 400 mg PO TID [facility] Last Admin: 02/09/23 11:55 Dose: 400 mg Atorvastatin Calcium (Atorvastatin Calcium 40 Mg Tablet) 40 mg PO DAILY [facility] Last Admin: 02/09/23 08:40 Dose: 40 mg Clonidine HCl (Clonidine Hcl 0.1 Mg Tablet) 0.1 mg PO BID PRN; Protocol PRN Reason: Anxiety Last Admin: 02/06/23 20:02 Dose: 0.1 mg Cyclobenzaprine HCl (Cyclobenzaprine Hcl 5 Mg Tablet) 5 mg PO BEDTIME PRN PRN Reason: muscle spasm Last Admin: 02/06/23 20:03 Dose: 5 mg Docusate Sodium (Docusate Sodium 100 Mg Capsule) 100 mg PO DAILY PRN PRN Reason: Constipation Last Admin: 02/06/23 20:02 Dose: 100 mg Duloxetine HCl (Duloxetine Hcl 20 Mg Capsule.Dr) 40 mg PO DAILY [facility] Last Admin: 02/09/23 08:40 Dose: 40 mg Duloxetine HCl (Duloxetine Hcl 60 Mg Capsule.) 60 mg PO DAILY [facility] Last Admin: 02/09/23 08:40 Dose: 60 mg Furosemide (Furosemide 20 Mg/2 Ml Vial) 20 mg IVPUSH BID@0900,1800 [facility]; Protocol Last Admin: 02/09/23 08:41 Dose: 20 mg Ipratropium [place] (Ipratropium [place] Zia 0.03 % 30 Ml [place]) 2 spray NOSTRIL-B BID PRN PRN Reason: Allergy Symptoms Lamotrigine (Lamotrigine 25 Mg Tablet) 50 mg PO BEDTIME [facility] Last Admin: 02/08/23 21:10 Dose: 50 mg Lamotrigine (Lamotrigine 100 Mg Tablet) 200 mg PO BEDTIME [facility] Last Admin: 02/08/23 21:11 Dose: 200 mg Lidocaine (Lidocaine 4 % Patch Adh..Patch) 1 patch TRANSDERMA DAILY [facility]; Protocol Last Admin: 02/08/23 07:56 Dose: 1 patch Loratadine (Loratadine 10 Mg Tablet) 10 mg PO DAILY [facility] Last Admin: 02/09/23 08:40 Dose: 10 mg Metoprolol Succinate (Metoprolol Succinate Er 100 Mg Tab.Er.24h) 100 mg PO BID [facility]; Protocol Last Admin: 02/09/23 08:40 Dose: 100 mg Nicotine (Nicotine 21 Mg Patch.Td24) 21 mg TRANSDERMA DAILY [facility] Last Admin: 02/09/23 08:41 Dose: 21 mg Nitrofurantoin Macrocrystals (Nitrofurantoin Monohyd/M-Cryst 100 Mg Capsule) 100 mg PO BID [facility] Last Admin: 02/09/23 08:40 Dose: 100 mg Ondansetron HCl (Ondansetron Hcl 4 Mg/2 Ml Vial) 4 mg IVPUSH Q8H PRN PRN Reason: Nausea and Vomiting Oxycodone HCl (Oxycodone Hcl Immed Release 5 Mg Tablet) 5 mg PO Q4H PRN PRN Reason: Pain, Severe (Pain Scale 7-10) Last Admin: 02/09/23 08:40 Dose: 5 mg Penicillin V Potassium (Penicillin V Potassium 250 Mg Tablet) 250 mg PO BID [facility] Last Admin: 02/09/23 08:40 Dose: 250 mg Pharmacy Consult (Consult Rx Perform Med Rec) 1 each MISCELLANE ONCE PRN PRN Reason: Consult order Prednisone (Prednisone 10 Mg Tablet) 10 mg PO DAILY [facility] Last Admin: 02/09/23 08:40 Dose: 10 mg Rivaroxaban (Rivaroxaban 20 Mg Tablet) 20 mg PO DAILY [facility] Last Admin: 02/09/23 08:40 Dose: 20 mg Ropinirole HCl (Ropinirole Hcl 0.5 Mg Tablet) 0.5 mg PO TID [facility] Last Admin: 02/09/23 08:40 Dose: 0.5 mg Sodium Chloride (0.9 % Sodium Chloride Flush 3 Ml Syringe) 3 ml IVFLUSH QSHIFT [facility] Last Admin: 02/09/23 08:41 Dose: 3 ml Home Medications Medication Instructions Recorded Confirmed Last Taken Type albuterol sulfate 90 mcg/actuation 2 puff inhalation Q4-6H PRN 11/24/21 02/05/23 Unknown History aerosol inhaler Respiratory Distress colchicine 0.6 mg tablet 0.6 mg PO DAILY 11/24/21 02/05/23 02/04/23 History duloxetine 40 mg capsule,delayed 40 mg PO DAILY 11/24/21 02/05/23 02/04/23 His tory release sprinkle duloxetine 60 mg capsule,delayed 60 mg PO DAILY 11/24/21 02/05/23 02/04/23 History release loratadine 10 mg tablet 10 mg PO DAILY 11/24/21 02/05/23 02/04/23 History penicillin V potassium 250 mg 250 mg PO BID 11/24/21 02/05/23 02/04/23 History tablet rosuvastatin 10 mg tablet 10 mg PO DAILY 11/24/21 02/05/23 02/04/23 History nitrofurantoin 100 mg PO BID 12/31/21 02/05/23 02/04/23 History monohydrate/macrocrystals 100 mg capsule ropinirole 0.5 mg tablet 0.5 mg PO TID 05/01/22 02/05/23 02/04/23 History budesonide-formoterol HFA 80 2 puff inhalation BID 09/29/22 02/05/23 02/04/23 History mcg-4.5 mcg/actuation aerosol inhaler (Symbicort) clonidine HCl 0.1 mg tablet 0.1 mg PO BID PRN Anxiety 02/05/23 02/05/23 Unknown History cyclobenzaprine 5 mg tablet 5 mg PO BEDTIME PRN muscle spasm 02/05/23 02/05/23 Unknown History ipratropium bromide 21 mcg (0.03 2 spray intranasal BID PRN Allergy 02/05/23 02/05/23 Unknown History %) nasal spray Symptoms lamotrigine 200 mg tablet 200 mg PO BEDTIME 02/05/23 02/05/23 02/04/23 History lamotrigine 25 mg tablet 50 mg PO BEDTIME 02/05/23 02/05/23 02/04/23 History warfarin 2.5 mg tablet 2.5 mg PO ROLANDOTUWENOCA@1800 02/05/23 02/05/23 02/04/23 History warfarin 5 mg tablet 5 mg PO TH@1800 02/05/23 02/05/23 Unknown History Exam Exam Date and Time: February 09, 2023 1333 Height,Weight and Vital Signs: Height 5 ft 3 in Weight 104.326 kg Last Vital Signs Temp 97.4 F 02/09/23 07:34 Pulse 104 H 02/09/23 07:34 Resp 18 02/09/23 07:34 BP 132/99 H 02/09/23 07:34 Pulse Ox 93 02/09/23 07:34 O2 Del Method Room Air 02/09/23 07:34 O2 Flow Rate 2 02/06/23 07:00 Pertinent Lab Results Pertinent Lab Results: Laboratory Tests 02/05/23 02/05/23 02/05/23 18:42 18:42 18:42 WBC 7.5 RBC 4.66 Hgb 13.0 Hct 41.4 MCV 88.8 MCH 27.9 MCHC 31.4 RDW 15.9 Plt Count 194 MPV 10.5 Immature Gran % (Auto) 0.1 Neut % (Auto) 38.2 L Lymph % (Auto) 50.5 H [place] % (Auto) 8.2 Eos % (Auto) 2.5 Baso % (Auto) 0.5 Lymph # (Auto) 3.8 [place] # (Auto) 0.6 Eos # (Auto) 0.2 Baso # (Auto) 0.0 Abs Immat Gran (auto) 0.01 Absolute Neuts (auto) 2.8 Absolute Nucleated RBC 0.000 Nucleated RBC % (auto) 0.0 PT INR APTT Sodium 142 Potassium 4.7 Chloride 106 Carbon Dioxide 31 H Anion Gap 10 L BUN 13 Creatinine 0.89 Estim Creat Clear Calc 78.5 Estimated GFR > 60 Random Glucose 100 Calcium 9.4 Total Bilirubin 0.8 Direct Bilirubin 0.3 AST 19 ALT 20 Alkaline Phosphatase 77 Troponin I High Sens 6.9 B-Natriuretic Peptide Total Protein 7.1 Albumin 3.7 Lipase 15 Urine Color Urine Appearance Urine pH Ur Specific [place] Urine Protein Urine Glucose (UA) Urine Ketones Urine Blood Urine Nitrite Ur Leukocyte Esterase Urine RBC Urine WBC Ur Squamous Epith Cells Urine Bacteria Hyaline Casts COVID-19 (REMA) COVID-19 Clin Com 02/05/23 02/05/23 02/05/23 18:42 18:42 18:42 WBC RBC Hgb Hct MCV MCH MCHC RDW Plt Count MPV Immature Gran % (Auto) Neut % (Auto) Lymph % (Auto) [place] % (Auto) Eos % (Auto) Baso % (Auto) Lymph # (Auto) [place] # (Auto) Eos # (Auto) Baso # (Auto) Abs Immat Gran (auto) Absolute Neuts (auto) Absolute Nucleated RBC Nucleated RBC % (auto) PT 23.2 H INR 2.0 H APTT 36.3 Sodium Potassium Chloride Carbon Dioxide Anion Gap BUN Creatinine Estim Creat Clear Calc Estimated GFR Random Glucose Calcium Total Bilirubin Direct Bilirubin AST ALT Alkaline Phosphatase Troponin I High Sens B-Natriuretic Peptide 435 H Total Protein Albumin Lipase Urine Color Urine Appearance Urine pH Ur Specific [place] Urine Protein Urine Glucose (UA) Urine Ketones Urine Blood Urine Nitrite Ur Leukocyte Esterase Urine RBC Urine WBC Ur Squamous Epith Cells Urine Bacteria Hyaline Casts COVID-19 (REMA) Negative COVID-19 Clin Com See Note 02/05/23 02/06/23 02/06/23 21:16 06:27 06:27 WBC 6.1 RBC 5.00 Hgb 14.0 Hct 44.9 MCV 89.8 MCH 28.0 MCHC 31.2 RDW 15.7 Plt Count 215 MPV 11.0 Immature Gran % (Auto) 0.7 H Neut % (Auto) 74.4 H Lymph % (Auto) 20.0 [place] % (Auto) 2.0 Eos % (Auto) 2.6 Baso % (Auto) 0.3 Lymph # (Auto) 1.2 [place] # (Auto) 0.1 Eos # (Auto) 0.2 Baso # (Auto) 0.0 Abs Immat Gran (auto) 0.04 H Absolute Neuts (auto) 4.5 Absolute Nucleated RBC 0.000 Nucleated RBC % (auto) 0.0 PT INR APTT Sodium 141 Potassium 4.6 Chloride 107 Carbon Dioxide 26 Anion Gap 13 BUN 12 Creatinine 0.83 Estim Creat Clear Calc 84.2 Estimated GFR > 60 Random Glucose 193 H Calcium 9.9 Total Bilirubin Direct Bilirubin AST ALT Alkaline Phosphatase Troponin I High Sens B-Natriuretic Peptide Total Protein Albumin Lipase Urine Color Yellow Urine Appearance Clear Urine pH 6.5 Ur Specific [place] 1.010 Urine Protein Negative Urine Glucose (UA) Negative Urine Ketones Negative Urine Blood Negative Urine Nitrite Negative Ur Leukocyte Esterase Trace H Urine RBC 0-2 Urine WBC 0-5 Ur Squamous Epith Cells 11-20 Urine Bacteria 1+ Hyaline Casts 0-2 COVID-19 (REMA) COVID-19 Clin Com 02/06/23 02/07/23 02/08/23 06:27 09:46 05:53 WBC RBC Hgb Hct MCV MCH MCHC RDW Plt Count MPV Immature Gran % (Auto) Neut % (Auto) Lymph % (Auto) [place] % (Auto) Eos % (Auto) Baso % (Auto) Lymph # (Auto) [place] # (Auto) Eos # (Auto) Baso # (Auto) Abs Immat Gran (auto) Absolute Neuts (auto) Absolute Nucleated RBC Nucleated RBC % (auto) PT 22.1 H 27.8 H 22.3 H INR 1.9 H 2.3 H 1.9 H APTT Sodium Potassium Chloride Carbon Dioxide Anion Gap BUN Creatinine Estim Creat Clear Calc Estimated GFR Random Glucose Calcium Total Bilirubin Direct Bilirubin AST ALT Alkaline Phosphatase Troponin I High Sens B-Natriuretic Peptide Total Protein Albumin Lipase Urine Color Urine Appearance Urine pH Ur Specific [place] Urine Protein Urine Glucose (UA) Urine Ketones Urine Blood Urine Nitrite Ur Leukocyte Esterase Urine RBC Urine WBC Ur Squamous Epith Cells Urine Bacteria Hyaline Casts COVID-19 (REMA) COVID-19 Clin Com 02/09/23 02/09/23 07:49 07:49 WBC RBC Hgb Hct MCV MCH MCHC RDW Plt Count MPV Immature Gran % (Auto) Neut % (Auto) Lymph % (Auto) [place] % (Auto) Eos % (Auto) Baso % (Auto) Lymph # (Auto) [place] # (Auto) Eos # (Auto) Baso # (Auto) Abs Immat Gran (auto) Absolute Neuts (auto) Absolute Nucleated RBC Nucleated RBC % (auto) PT 24.6 H INR 2.1 H APTT Sodium 141 Potassium 4.0 Chloride 100 Carbon Dioxide 31 H Anion Gap 14 BUN 17 H Creatinine 0.84 Estim Creat Clear Calc 83.2 Estimated GFR > 60 Random Glucose 125 H Calcium 9.4 Total Bilirubin Direct Bilirubin AST ALT Alkaline Phosphatase Troponin I High Sens B-Natriuretic Peptide Total Protein Albumin Lipase Urine Color Urine Appearance Urine pH Ur Specific [place] Urine Protein Urine Glucose (UA) Urine Ketones Urine Blood Urine Nitrite Ur Leukocyte Esterase Urine RBC Urine WBC Ur Squamous Epith Cells Urine Bacteria Hyaline Casts COVID-19 (REMA) COVID-19 Clin Com Airway Mallampati Class: II (edentulous) TM Dist: >3cm Neck ROM: Full Loose/Missing/Broken Teeth: Yes, Upper and Lower Heart: RRR Lungs: CTA Assessment and Plan Assessment Anesthesia Assessment: Anesthesia Plan Discussed and Chart Reviewed Final Anesthetic Review History of Problems with Anesthesia: Yes NPO: Yes ASA Class: III Final Preanesthetic Review: Meds/Allgs Chart Reviewed, Consent Obtained/Reviewed and Anes Risks/Benef Reviewed Patient Risk: Intermediate Procedure Risk: Intermediate Anesthetic Plan Anesthetic Plan: MAC: Disposition: Standard PACU
[2023-02-09] MEDS: Albuterol/Iprat 2.5/0.5MG 3 ML AMPUL.NEB INHALE (13:46)
[2023-02-09 14:09] LABS: Glucose, Whole Blood 155 mg/dL (60-115)
--- NOTE | 2023-02-09 14:23 | HO.POSTANES ---
Post Anesthesia Evaluation Post Anesthesia Evaluation Date of Service: 02/09/23 Vital Signs: Vital Signs Temp Pulse Resp BP Pulse Ox O2 Del Method 02/09/23 13:48 132 H 16 02/09/23 13:27 97.7 F 131 H 16 118/84 95 Room Air 02/09/23 07:34 97.4 F 104 H 18 132/99 H 93 Room Air 02/09/23 03:21 97.0 F 113 H 20 126/82 97 Room Air Anesthesia: General Endotracheal-GETA Mental Status: Awake Pain Control: Satisfactory Nausea/Vomiting: None Hydration: Adequate Anesthesia-Related Issues: No Anes. Related Issues
--- NOTE | 2023-02-09 14:54 | HO.CARDIVERS ---
Cardioversion Procedure Note Cardioversion Date of Procedure: 02/09/23 Ordering Provider: Jordan Orozco Performing Provider: Jordan Orozco Indication for Procedure: Atrial flutter Pre-Op Diagnosis: Atrial flutter Performed with Transesophageal Echo: Yes DANIELLE findings (if DANIELLE Performed): No LA or FERMIN thrombus. History: 57 year old female with CHF and atrial flutter with difficult rate control. Consent: Verbal and Written consent was obtained from the patient before starting. The patient was made aware of the risk of stroke, failure and arrhythmia. Procedure: After consent obtained, defib pads were attached and the patient was sedated by the anesthesia team. Once adequate sedation achieved, single synchronized shock of 120 J was given which converted the rhythm to sinus. Complications: None Recommendations: Continue Xarelto long-term. Must not be held in next 6 weeks. Amiodarone 400 mg BID x 10 days then 200 mg daily. Decrease the Toprol XL to 50 mg BID.
--- NOTE | 2023-02-09 16:56 | MHC.CM.PN ---
EMR REVIEWED, PLANNED CARDIOVERSION FOR TODAY COMPLETED, ANTIC PT WILL BE CLEARED FRO D/C IN 1-2 DAYS PER HOSPITALIST, CM WILL BE TO RETURN TO [facility] W/RESUMP OF SERVICES, CM WILL CONT TO FOLLOW D/C NEEDS.
[2023-02-09] MEDS: lamoTRIgine 25 MG TABLET 50 MG PO (20:10)
[2023-02-09] MEDS: Metoprolol Succinate ER 50 MG TAB.ER.24H PO (20:11)
[2023-02-09] MEDS: lamoTRIgine 100 MG TABLET 200 MG PO (20:11)
--- NOTE | 2023-02-10 | ECG_ITS ---
Test Reason : PRE-DISCHARGE S/P CARDIOVERSION Blood Pressure : / mmHG Vent. Rate : 057 BPM Atrial Rate : 057 BPM P-R Int : 174 ms QRS Dur : 086 ms QT Int : 454 ms P-R-T Axes : 061 053 074 degrees QTc Int : 441 ms Sinus bradycardia Possible Left atrial enlargement Septal infarct , age undetermined Abnormal ECG When compared with ECG of 06-FEB-2023 20:34, Septal infarct present Sinus bradycardia has replaced atrial flutter Referred By: Vel Pacheco Electronically Signed By:Jordan Orozco
[2023-02-10 02:59] VITALS: BP 110/63; PULSE 88; RESP 20; TEMP 36.1; O2SAT 93
[2023-02-10] MEDS: oxyCODONE HCl Immed Release 5 MG TABLET PO ×2 (03:15→08:28)
[2023-02-10 07:00] VITALS: BP 148/74; PULSE 65; RESP 20; TEMP 36.4; O2SAT 96
[2023-02-10 07:30] LABS: INTERNATIONAL NORM RATIO 1.6 (0.9-1.1); Prothrombin Time 18.4 SEC (10.0-13.1)
[2023-02-10 07:41] LABS: Anion Gap 13 (12-20); Blood Urea Nitrogen 26 mg/dL (9-16); Calcium 9.4 mg/dL (8.4-10.2); Carbon Dioxide 35 mmol/L (22-29); Chloride 96 mmol/L (96-108); Creatinine Clr Calc Pharmacy 52.5; Estimated Glomerular Filt Rate 41; Glucose Random 203 mg/dL (60-115); Magnesium 2.1 mg/dL (1.6-2.6); Potassium 4.5 mmol/L (3.3-5.1); Sodium 139 mmol/L (135-145)
[2023-02-10 07:50] LABS: B Type Natriuretic Peptide 82 pg/mL (<100)
[2023-02-10] MEDS: Lidocaine 4 % Patch ADH..PATCH 1 PATCH TRANSDERMA (08:26)
[2023-02-10] MEDS: Atorvastatin Calcium 40 MG TABLET PO (08:27)
[2023-02-10] MEDS: Nicotine 21 MG PATCH.TD24 TRANSDERMA (08:27)
[2023-02-10] MEDS: DULoxetine HCl 20 MG CAPSULE.DR 40 MG PO (08:27)
[2023-02-10] MEDS: DULoxetine HCl 60 MG CAPSULE.DR PO (08:28)
[2023-02-10] MEDS: Amiodarone HCL 200 MG TABLET 400 MG PO (08:28)
[2023-02-10] MEDS: rOPINIRole HCL 0.5 MG TABLET PO (08:28)
[2023-02-10] MEDS: Nitrofurantoin Monohyd/M-Cryst 100 MG CAPSULE PO (08:28)
[2023-02-10] MEDS: Rivaroxaban 20 MG TABLET PO (08:28)
[2023-02-10] MEDS: Loratadine 10 MG TABLET PO (08:28)
[2023-02-10] MEDS: Penicillin V Potassium 250 MG TABLET PO (08:28)
[2023-02-10] MEDS: predniSONE 10 MG TABLET PO (08:29)
[2023-02-10] MEDS: 0.9 % Sodium Chloride Flush 3 ML SYRINGE IVFLUSH (08:29)
[2023-02-10] MEDS: Metoprolol Succinate ER 50 MG TAB.ER.24H PO (08:29)
[2023-02-10] MEDS: Furosemide 20 MG/2 ML VIAL IVPUSH (08:29)
[2023-02-10 09:22] VITALS: BP 148/74; PULSE 65; O2SAT 96
--- NOTE | 2023-02-10 09:37 | P.F2F_ITS ---
Service Date Service Date: 02/10/23 Encounter Date of encounter: 02/10/23 Reasons for Services Signs and symptoms assessed: see PT note 02/10/23 Reason for long term: medication management and medication treatment Reason for physical therapy: home safety and mobility, therapeutic exercises, gait/transfer training, assess need for DME, ADL training and energy conservation MD Overseeing Care: Jarad Ellis Homebound: Leaving the home is medically contraindicated at this time without the asist of a device and/or another person due th the listed conditions above and below. Reason homebound: unsteady gait / fall risk and weakness related to hospital stay Homebound supporting statement: attach PT note from 02/10/23 Certification: Based on the above findings, I certify that this patient is confined to the home and needs intermittent long term care, physical therapy and/or speech therapy, or continues to need occupational therapy. The patient is under my care, and I have initiated the establishment of the plan of care. The patient will be followed by a physician who will periodically review the plan of care. Time Spent With Patient Time: Total time managing care of this patient today ____ minutes.
--- NOTE | 2023-02-10 09:46 | PM.DS ---
DS: Providers Provider Date of Service: 02/10/23 Date of admission: 02/06/23 08:56 Date of discharge: 02/10/23 Primary care physician: Jarad Ellis MD Consults: 02/06/23 13:37 Consult to Cardiology Routine Consulting Provider: David Mcqueen Reason for consultation: persistent atrial flutter Has provider been notified: No DS: Diagnosis Discharge Diagnosis (1) Acute exacerbation of chronic obstructive pulmonary disease: Status: Acute (2) Atrial flutter with rapid ventricular response: Status: Acute (3) Right heart failure: Status: Acute (4) Morbid obesity: Status: Acute (5) Chronic respiratory failure requiring treatment with nocturnal BPAP by mask: Status: Acute DS: Summary Hospital Course Hospital Course: from admission H+P by hospitalist Efren Joya MD, 02/05/23: 57-year-old female past medical history of a flutter, on warfarin, COPD, HLD, HTN, chronic back pain comes into the hospital with complaints of shortness of breath, as well as inability to get? her oxygen and BiPAP at bedtime due to loss of electricity at her house.? Patient was sent by her insurance for further evaluation.? Patient reports a cough for 3 weeks, increased sputum production, dyspnea, no orthopnea or PND, no lower extremity edema.? No fever chills, no chest pain, no abdominal pain nausea or vomiting, no diarrhea constipation, no urinary symptoms.? No weakness numbness or tingling On arrival to the ED patient found to have a heart rate in the 130s, a flutter with RVR, otherwise stable, patient received several doses of p.o. as well as IV Cardizem with improvement of her heart rate.? Currently in the 80s irregular INR of 2.0, labs otherwise unremarkable except for slightly elevated BNP of 435 Chest x-ray negative for any pulmonary congestion of fluids. Ms Orosco is a 57yo F with COPD on chronic BiPAP who was admitted to the [facility] for COPD exacerbation after losing electricity at home and thus unable to use BiPAP. Hospital course was complicated by atrial flutter with RVR. By problem: acute COPD exac with chronic respitatory failure - treated with nebulized bronchidilators and IV glucocorticoids with symptomatic improvement; discharged to finish prednisone taper 10 mg daily x 2 days - on 1L O2 via NC and nocturnal BiPAP chronically and the patient's electricity has been turned back on - she was counseled to quit smoking and NRT was prescribed persistent atrial flutter with RVR - initially placed on diltiazem IV drip. - Cardiology consulted. - due to fluctuating INR on warfarin, anticoagulation was changed to rivaroxaban on 02/08 - dronedarone was discontinued given heart failure. Due to persistent AF, the patient underwent DANIELLE-guided DC cardioversion to NSR on 02/08/23. She was placed on amiodarone for maintenance of sinus rhythm. Metoprolol succinate was decreased to 50 mg bid. - she will need Cardiology follow-up in 2 weeks acute/chronic R heart failure - she was diuresed with IV furosemide and discharged on PO furosemide. She was discharged home with VNA services for CHF monitoring and home PT. Time Spent with Patient Time attestation: Total time managing care of this patient today ___45_ minutes. Discharge coordination time: Greater than 30 minutes Quality: Safe Use of Opioids Does Pt have an Active Cancer Diagnosis on the Problem List?: No Quality: Stroke Does the patient have a stroke diagnosis?: No Physical Exam Vital Signs: Vital Signs: Last Vital Signs Temp 97.5 F 02/10/23 07:00 Pulse 65 02/10/23 09:22 Resp 20 02/10/23 07:00 BP 148/74 H 02/10/23 09:22 Pulse Ox 96 02/10/23 09:22 O2 Del Method Room Air 02/10/23 07:00 O2 Flow Rate 3 02/09/23 15:04 BMI result Body Mass Index 40.7 Gen: in no acute distress HEENT: sclera anicteric, moist mucus membranes Neck: supple Lungs: clear to auscultation bilaterally Heart: regular rate and rhythm, no murmurs Abd: soft, non-tender, non-distended, morbid obesity Ext: no edema Skin: warm/well-perfused Neuro: alert and oriented x3, no focal findings Psych: appropriate affect DS: Data Data Completed and Pending Completed studies during hospitalization [Text1]: Laboratory Results WBC 6.1 X10*3/uL (4.8-10.8) 02/06/23 06:27 RBC 5.00 X10*6/uL (4.20-5.50) 02/06/23 06:27 Hgb 14.0 g/dl (12.0-16.0) 02/06/23 06:27 Hct 44.9 % (37.0-47.0) 02/06/23 06:27 MCV 89.8 fL (80.0-98.0) 02/06/23 06:27 MCH 28.0 pg (27.0-33.0) 02/06/23 06: MCHC 31.2 g/dl (31.0-35.0) 02/06/23 06:27 RDW 15.7 % (11.0-16.0) 02/06/23 06:27 Plt Count 215 X10*3/uL (160-400) 02/06/23 06: MPV 11.0 fL (9.4-12.3) 02/06/23 06:27 Immature Gran % (Auto) 0.7 % (0.0-0.4) H 02/06/23 06: Neut % (Auto) 74.4 % (45-73) H 02/06/23 06:27 Lymph % (Auto) 20.0 % (20-40) 02/06/23 06: [place] % (Auto) 2.0 % (2-11) 02/06/23 06: Eos % (Auto) 2.6 % (0-4) 02/06/23 06: Baso % (Auto) 0.3 % (0-2) 02/06/23 06:27 Lymph # (Auto) 1.2 X10*3/uL (1.2-4.9) 02/06/23 06:27 [place] # (Auto) 0.1 X10*3/uL (0.1-1.2) 02/06/23 06:27 Eos # (Auto) 0.2 X10*3/uL (0.0-0.4) 02/06/23 06:27 Baso # (Auto) 0.0 X10*3/uL (0.0-0.2) 02/06/23 06:27 Abs Immat Gran (auto) 0.04 X10*3/uL (0.00-0.03) H 02/06/23 06:27 Absolute Neuts (auto) 4.5 x10*3/uL (2.0-8.3) 02/06/23 06:27 Absolute Nucleated RBC 0.000 X10*3/uL (0.0-0.012) 02/06/23 06:27 Nucleated RBC % (auto) 0.0 /100WBC (0.0-0.2) 02/06/23 06:27 PT 18.4 SEC (10.0-13.1) H 02/10/23 07:15 INR 1.6 (0.9-1.1) H 02/10/23 07:15 APTT 36.3 SEC (26.0-36.4) 02/05/23 18:42 Sodium 139 mmol/L (135-145) 02/10/23 07:08 Potassium 4.5 mmol/L (3.3-5.1) 02/10/23 07:08 Chloride 96 mmol/L (96-108) 02/10/23 07:08 Carbon Dioxide 35 mmol/L (22-29) H 02/10/23 07:08 Anion Gap 13 (12-20) 02/10/23 07:08 BUN 26 mg/dL (9-16) H 02/10/23 07:08 Creatinine 1.33 mg/dL (0.5-1.4) 02/10/23 07:08 Estim Creat Clear Calc 52.5 02/10/23 07:08 Estimated GFR 41 02/10/23 07:08 POC Glucose 155 mg/dL (60-115) H 02/09/23 14:05 Random Glucose 203 mg/dL (60-115) H 02/10/23 07:08 Calcium 9.4 mg/dL (8.4-10.2) 02/10/23 07:08 Magnesium 2.1 mg/dL (1.6-2.6) 02/10/23 07:08 Total Bilirubin 0.8 mg/dL (0.0-1.0) 02/05/23 18:42 Direct Bilirubin 0.3 mg/dL (0.0-0.5) 02/05/23 18:42 AST 19 U/L (5-31) 02/05/23 18:42 ALT 20 U/L (0-31) 02/05/23 18:42 Alkaline Phosphatase 77 U/L (39-117) 02/05/23 18:42 Troponin I High Sens 6.9 ng/L (<3.5-17.0) 02/05/23 18:42 B-Natriuretic Peptide 82 pg/mL (<100) 02/10/23 07:08 Total Protein 7.1 g/dL (6.5-8.0) 02/05/23 18:42 Albumin 3.7 g/dL (3.5-5.0) 02/05/23 18:42 Lipase 15 U/L (8-78) 02/05/23 18:42 Urine Color Yellow 02/05/23 21:16 Urine Appearance Clear 02/05/23 21:16 Urine pH 6.5 (5.0-9.0) 02/05/23 21:16 Ur Specific Kersey 1.010 (1.005-1.025) 02/05/23 21:16 Urine Protein Negative mg/dL (Neg-Trace) 02/05/23 21:16 Urine Glucose (UA) Negative mg/dL (Negative) 02/05/23 21:16 Urine Ketones Negative mg/dL (Negative) 02/05/23 21:16 Urine Blood Negative (Negative) 02/05/23 21:16 Urine Nitrite Negative (Negative) 02/05/23 21:16 Ur Leukocyte Esterase Trace (Negative) H 02/05/23 21:16 Urine RBC 0-2 /HPF (0-2) 02/05/23 21:16 Urine WBC 0-5 /HPF (0-5) 02/05/23 21:16 Ur Squamous Epith Cells 11-20 /HPF (0-2) 02/05/23 21:16 Urine Bacteria 1+ (None Seen) 02/05/23 21:16 Hyaline Casts 0-2 /LPF (0-2) 02/05/23 21:16 COVID-19 (REMA) Negative (Negative) 02/05/23 18:42 COVID-19 Clin Com See Note 02/05/23 18:42 Impressions Chest X-Ray 02/05/23 17:19 IMPRESSION: No significant change when compared to 01/03/2022. TTE 02/07/23 1. Low normal LV ejection fraction 50-55%? 2. Biatrial enlargement? 3. Moderate mitral regurgitation and moderate tricuspid? regurgitation? 4. Mild to moderate elevation right ventricular systolic pressure significantly elevated right atrial pressures? 5. No gross pericardial effusion ? DANIELLE 02/09/23 - Normal left ventricular size and systolic function. The? visually estimated ejection fraction is between 55-60%.? - Normal right ventricular cavity size.? There is low normal ? ? right ventricular systolic function. ? - There is no evidence of a thrombus in the left atrial? appendage. ? Discharge Plan Discharge Anticipated Discharge Date/Time: 02/10/23 13:38 Patient Disposition: Home Health Service Discharge Diagnosis: acute COPD exac with chronic hypoxic resp failure persistent atrial flutter with RVR acute/chronic R heart failure Referrals: [facility] [Outside] - 1 Week Jarad Ellis MD [Primary Care Provider] - 1 Week David Mcqueen MD [Physician] - 2 Weeks Discharge Medications: New nicotine 21 mg/24 hr Patch 24 Hour 21 mg transdermal DAILY Qty: 28 0RF Xarelto 20 mg Tablet 20 mg PO DAILY Qty: 30 0RF Rx Instructions: Replaces warfarin metoprolol succinate 50 mg Tablet Extended Release 24 Hr 50 mg PO BID Qty: 60 0RF Protocol: Hold for SBP/HR < HOLD for SBP < : 90 HOLD for HR < : 60 Rx Instructions: replaces prior dose of 75 mg twice daily amiodarone 200 mg Tablet See Rx Instructions .ROUTE .COMPLEX Qty: 60 0RF Rx Instructions: 400 mg [2 tabs] twice daily for 10 days, then 200 mg [1 tab] once daily prednisone 10 mg Tablet 10 mg PO DAILY Qty: 2 0RF furosemide 40 mg tablet 40 mg PO DAILY Qty: 30 0RF Continued penicillin V potassium 250 mg Tablet 250 mg PO BID albuterol sulfate 90 mcg/actuation Hfa Aerosol Inhaler 2 puff INHALATION Q4-6H PRN (Reason: Respiratory Distress) colchicine 0.6 mg Tablet 0.6 mg PO DAILY loratadine 10 mg Tablet 10 mg PO DAILY rosuvastatin 10 mg Tablet 10 mg PO DAILY duloxetine 60 mg Capsule,Delayed Release(Dr/Ec) 60 mg PO DAILY Rx Instructions: TAKE WITH 40MG duloxetine 40 mg Capsule, Delayed Rel Sprinkle 40 mg PO DAILY Rx Instructions: TAKE WITH 60MG nitrofurantoin monohyd/m-cryst 100 mg capsule 100 mg PO BID lamotrigine 200 mg tablet 200 mg PO BEDTIME Rx Instructions: TAKE WITH 50MG lamotrigine 25 mg tablet 50 mg PO BEDTIME Rx Instructions: TAKE WITH 200MG clonidine HCl 0.1 mg tablet 0.1 mg PO BID PRN (Reason: Anxiety) ipratropium bromide 21 mcg (0.03 %) spray,non-aerosol 2 spray intranasal BID PRN (Reason: Allergy Symptoms) cyclobenzaprine 5 mg tablet 5 mg PO BEDTIME PRN (Reason: muscle spasm) ropinirole 0.5 mg tablet 0.5 mg PO TID budesonide-formoterol [Symbicort] 80-4.5 mcg/actuation HFA aerosol inhaler 2 puff inhalation BID Discontinued Multaq 400 mg tablet 400 mg PO BID Qty: 10 0RF Rx Instructions: must administer with a meal/food metoprolol succinate 50 mg tablet extended release 24 hr 75 mg PO BID Qty: 100 4RF warfarin 2.5 mg tablet 2.5 mg PO SUMOTUWEFRSA@1800 warfarin 5 mg tablet 5 mg PO TH@1800 Discharge Orders: Discharge Order (Routine); Ordered 02/10/23 Ordered By: Vel Pacheco Diet: Low salt diet Activity on Discharge: As tolerated Stand Alone Forms: Patient Portal Discharge page Care Plan Goals: cardiac and pulmonary health Health Concerns: acute COPD exac with chronic hypoxic resp failure persistent atrial flutter with RVR acute/chronic R heart failure Plan of Treatment: oxygen 1L, BiPAP at night prednisone 10 mg daily for 2 more days stop smoking; use nicotine replacement to help amiodarone 400 mg [2 x 200 mg tabs] twice daily for 10 days, then 200 mg [ 1 tab] once daily decrease metoprolol succinate to 50 mg twice daily stop Multaq [dronedarone] stop warfarin [Coumadin] and take rivaroxaban [Xarelto] 20 mg daily follow up with Cardiology Dr Orozco in 2 weeks Low-sodium diet: less than 2000 mg of sodium daily. Weigh yourself daily and call your doctor if your weight goes up by more than 3 lb/day or 5 lb/week. take furosemide 40 mg daily Please follow up with your primary care doctor within 1 week. Return to the hospital if you experience recurrent or worsening symptoms. Assessment: See Discharge Summary. Patient Instructions: Left-sided and Right-sided Heart Failure (GEN)
[2023-02-10 11:00] VITALS: BP 125/92; PULSE 55; RESP 18; TEMP 36.4; O2SAT 96
--- NOTE | 2023-02-10 11:28 | HO.POSTANES ---
Post Anesthesia Evaluation Post Anesthesia Evaluation Date of Service: 02/10/23 Vital Signs: Vital Signs Temp Pulse Resp BP Pulse Ox O2 Del Method 02/10/23 11:00 97.5 F 55 18 125/92 H 96 Room Air 02/10/23 09:22 65 148/74 H 96 02/10/23 07:00 97.5 F 65 20 148/74 H 96 Room Air 02/10/23 02:59 96.9 F 88 20 110/63 93 Room Air 02/09/23 23:36 20 Anesthesia: Monitored Mental Status: Awake Pain Control: Satisfactory Nausea/Vomiting: None Hydration: Adequate Anesthesia-Related Issues: No Anes. Related Issues
--- NOTE | 2023-02-10 11:31 | MHC.CM.PN ---
Second IMM given 02/20. Pt medically cleared for D/C home today with new VNA. Pt has chosen to go with [facility]. Pt has her own transport.
--- NOTE | 2023-02-10 13:48 | P.PNCA_ITS ---
Subjective Subjective Date of Service: 02/10/23 Principal diagnosis: Atrial flutter, right heart failure Interval history: Seen and examined at bedside. She is in sinus rhythm. Feeling better. Physical Exam Vital Signs: Last Vital Signs Temp 97.5 F 02/10/23 11:00 Pulse 55 02/10/23 11:00 Resp 18 02/10/23 11:00 BP 125/92 H 02/10/23 11:00 Pulse Ox 96 02/10/23 11:00 O2 Del Method Room Air 02/10/23 11:00 O2 Flow Rate 3 02/09/23 15:04 BMI result Body Mass Index 40.7 GENERAL APPEARANCE: in no acute distress, pleasant. NECK: no carotid bruit, no jugular venous distention. SKIN: no suspicious lesions, warm and dry. HEART: no murmurs, regular rate and rhythm. LUNGS: Mild expiratory wheezes. ABDOMEN: soft, nontender. EXTREMITIES: no edema. PERIPHERAL PULSES: equal. NEUROLOGIC: No gross deficits, AAO X 3 Objective Labs and Meds 02/06/23 06:27 02/10/23 07:08 Lab results: Laboratory Results - last 24 hr 02/09/23 02/10/23 02/10/23 14:05 07:08 07:08 PT INR Sodium 139 Potassium 4.5 Chloride 96 Carbon Dioxide 35 H Anion Gap 13 BUN 26 H Creatinine 1.33 Estim Creat Clear Calc 52.5 Estimated GFR 41 POC Glucose 155 H Random Glucose 203 H Calcium 9.4 Magnesium 2.1 B-Natriuretic Peptide 82 02/10/23 07:15 PT 18.4 H INR 1.6 H Sodium Potassium Chloride Carbon Dioxide Anion Gap BUN Creatinine Estim Creat Clear Calc Estimated GFR POC Glucose Random Glucose Calcium Magnesium B-Natriuretic Peptide Progress Note: A&P Assessment and plan (1) Right heart failure: Status: Acute (2) Atrial flutter: Status: Acute Plan Pleasant 57 year female with atrial flutter with poorly controlled heart rate. She presented with right-sided heart failure and was diuresed. After discussion she was taken for dayday cardioversion. She was successfully cardioverted yesterday. She has been on amiodarone 400 mg twice a day which she should continue for next 10 days. Her Toprol-XL dose has been decreased to 50 mg twice a day. Colchicine should not be resumed because there is an interaction between colchicine and amiodarone. We discussed about ablation she is interested and I am going to refer her to [facility]. Thank you for allowing me to participate in the care of your patient. Please feel free to contact me if you have any questions. Time Spent With Patient Time: Total time managing care of this patient today ____ minutes. Progress Note: Quality Stroke Does the patient have a stroke diagnosis?: No Procedures Date of Service Date of Service: 02/10/23
== END 2023-02-10 13:50 | disposition home health service (06) | DRG 191 ==
LOC: HO.ED 20:11 → HO.EDOVER 21:36 → HO.IMC 02-06 13:41
PROVIDERS: Hospitalist; Internal Medicine Cardiovascular Disease; Admitting Provider Internal Medicine; Emergency Provider Emergency Medicine; PCP Family Medicine; Visit Provider Family Medicine
PROC: 5A2204Z Restoration of Cardiac Rhythm, Single (ICD-10-PCS; CPT 93312; principal; 2023-02-09 14:00)
PROC: 5A2204Z Restoration of Cardiac Rhythm, Single (ICD-10-PCS; 2023-02-09 14:00)
DX: J44.1 Chronic obstructive pulmonary disease with (acute) exacerbation (principal); E66.2 Morbid (severe) obesity with alveolar hypoventilation; I48.92 Unspecified atrial flutter; Z68.41 Body mass index [BMI] 40.0-44.9, adult; J96.11 Chronic respiratory failure with hypoxia; I50.813 Acute on chronic right heart failure; Z99.81 Dependence on supplemental oxygen; G25.81 Restless legs syndrome; E78.5 Hyperlipidemia, unspecified; G89.29 Other chronic pain; I27.29 Other secondary pulmonary hypertension; F17.210 Nicotine dependence, cigarettes, uncomplicated; R79.1 Abnormal coagulation profile; Z71.3 Dietary counseling and surveillance; Z20.822 Contact with and (suspected) exposure to COVID-19; Z86.718 Personal history of other venous thrombosis and embolism; Z71.6 Tobacco abuse counseling; Z79.2 Long term (current) use of antibiotics; Z79.01 Long term (current) use of anticoagulants; Z79.899 Other long term (current) drug therapy
CPT/HCPCS: 36415; 71045; 80048; 80076; 81001; 82947; 83690; 83735; 83880; 84484; 85025; 85610; 85730; 87635; 92960; 93005; 93306; 94640; 94660; 97162; 99285; J1940; J2250; J2920; Q9957

== ENCOUNTER → 2023-02-05 16:47 | Outpatient (BNV) | payer OTHER, SELFPAY | PROVIDERS: Admitting Provider Internal Medicine; Emergency Provider Emergency Medicine; PCP Family Medicine; Visit Provider Internal Medicine Cardiovascular Disease | DX: I48.92 Unspecified atrial flutter (principal) | CPT/HCPCS: 93010 ==

== ENCOUNTER → 2023-02-05 17:18 | Outpatient (BNV) | payer OTHER, SELFPAY | PROVIDERS: Emergency Provider Emergency Medicine; PCP Family Medicine; Visit Provider Internal Medicine | DX: J44.1 Chronic obstructive pulmonary disease with (acute) exacerbation (principal); I48.92 Unspecified atrial flutter | CPT/HCPCS: 99223; 99232; 99233; 99239; G0180 ==

== ENCOUNTER 2023-02-06 08:56 | Outpatient (BNV) | payer OTHER, SELFPAY | END 2023-02-10 12:29 | PROVIDERS: Admitting Provider Internal Medicine; Emergency Provider Emergency Medicine; PCP Family Medicine; Visit Provider Internal Medicine Cardiovascular Disease | DX: R00.1 Bradycardia, unspecified (principal); R94.31 Abnormal electrocardiogram [ECG] [EKG] | CPT/HCPCS: 93010 ==

== ENCOUNTER 2023-02-06 08:56 | Outpatient (BNV) | payer OTHER, SELFPAY | END 2023-02-07 07:00 | PROVIDERS: Admitting Provider Internal Medicine; Emergency Provider Emergency Medicine; PCP Family Medicine; Visit Provider Internal Medicine Cardiovascular Disease | DX: I35.1 Nonrheumatic aortic (valve) insufficiency (principal) | CPT/HCPCS: 93306 ==

== ENCOUNTER 2023-02-06 08:56 | Outpatient (BNV) | payer OTHER, SELFPAY | END 2023-02-09 07:00 | PROVIDERS: Admitting Provider Internal Medicine; Emergency Provider Emergency Medicine; PCP Family Medicine; Visit Provider Internal Medicine Cardiovascular Disease | DX: I35.1 Nonrheumatic aortic (valve) insufficiency (principal); I36.1 Nonrheumatic tricuspid (valve) insufficiency | CPT/HCPCS: 93312; 93320; 93325 ==

== ENCOUNTER → 2023-02-06 08:56 | Outpatient (BNV) | payer OTHER, SELFPAY | PROVIDERS: Admitting Provider Internal Medicine; Emergency Provider Emergency Medicine; PCP Family Medicine; Visit Provider Internal Medicine Cardiovascular Disease | DX: I50.810 Right heart failure, unspecified (principal); I48.92 Unspecified atrial flutter | CPT/HCPCS: 92960; 93010; 99222; 99232; 99233 ==

== ENCOUNTER 2023-02-19 18:02 | Inpatient (IN) | payer OTHER, SELFPAY ==
[2023-02-19] VITALS (7 sets, daily range): BP systolic 90–148; BP diastolic 49–85; PULSE 88–124; RESP 18–22; TEMP 36.1–36.7; O2SAT 94–100; BMI 42.0
--- NOTE | 2023-02-19 18:04 | ECG_ITS ---
Test Reason : CHEST PALPITATIONS Blood Pressure : / mmHG Vent. Rate : 122 BPM Atrial Rate : 244 BPM P-R Int : 000 ms QRS Dur : 166 ms QT Int : 416 ms P-R-T Axes : 097 -16 270 degrees QTc Int : 592 ms Atrial flutter with 2:1 A-V conduction Non-specific intra-ventricular conduction block Minimal voltage criteria for LVH, may be normal variant ( Christine product ) Inferior infarct , age undetermined Abnormal ECG When compared with ECG of 10-FEB-2023 12:29, Significant changes have occurred Referred By: Radha Day Electronically Signed By:KERON ARTHUR MD
--- NOTE | 2023-02-19 18:06 | ED.GENADULT ---
HPI - General Adult General Chief complaint: Arrhythmia/Palpitations Stated complaint: chest palpitations/high bp/ sob Time Seen by Provider: 02/19/23 18:20 Source: patient Mode of arrival: ambulatory Limitations: no limitations History of Present Illness HPI narrative: Patient history of COPD with atrial flutter status post cardioversion on 02/09 with right heart failure on Xarelto and amiodarone and metoprolol comes as for last 3 4 days patient feeling dizzy off and on with hot flashes felt like passing out patient never feels palpitation even if heart rate is fast, saturating 99% at room air blood pressure 129/84 pulse rate 121, Patient LV ejection fraction is 45-50% Related Data Home Medications Medication Instructions Recorded Confirmed albuterol sulfate 90 mcg/actuation 2 puff inhalation Q4-6H PRN 11/24/21 02/19/23 aerosol inhaler Respiratory Distress duloxetine 40 mg capsule,delayed 40 mg PO DAILY 11/24/21 02/19/23 release sprinkle duloxetine 60 mg capsule,delayed 60 mg PO DAILY 11/24/21 02/19/23 release loratadine 10 mg tablet 10 mg PO DAILY 11/24/21 02/19/23 penicillin V potassium 250 mg 250 mg PO BID 11/24/21 02/19/23 tablet rosuvastatin 10 mg tablet 10 mg PO DAILY 11/24/21 02/19/23 nitrofurantoin 100 mg PO BID 12/31/21 02/19/23 monohydrate/macrocrystals 100 mg capsule ropinirole 0.5 mg tablet 0.5 mg PO TID 05/01/22 02/19/23 budesonide-formoterol HFA 80 2 puff inhalation BID 09/29/22 02/19/23 mcg-4.5 mcg/actuation aerosol inhaler (Symbicort) clonidine HCl 0.1 mg tablet 0.1 mg PO BID PRN Anxiety 02/05/23 02/19/23 cyclobenzaprine 5 mg tablet 5 mg PO BEDTIME PRN muscle spasm 02/05/23 02/19/23 ipratropium bromide 21 mcg (0.03 2 spray intranasal BID PRN Allergy 02/05/23 02/19/23 %) nasal spray Symptoms lamotrigine 200 mg tablet 200 mg PO BEDTIME 02/05/23 02/19/23 lamotrigine 25 mg tablet 50 mg PO BEDTIME 02/05/23 02/19/23 nicotine 21 mg/24 hr daily 21 mg transdermal DAILY PRN 02/19/23 02/19/23 transdermal patch Nicotine Cravings Previous Rx's Medication Instructions Recorded amiodarone 200 mg tablet See Rx Instructions .Route 02/10/23 .COMPLEX #60 tabs furosemide 40 mg tablet 40 mg PO DAILY #30 tabs 02/10/23 rivaroxaban 20 mg tablet (Xarelto) 20 mg PO DAILY #30 tabs 02/10/23 metoprolol succinate 50 mg 50 mg PO BID 90 days #180 tabs 02/17/23 tablet,extended release 24 hr Allergies Allergy/AdvReac Type Severity Reaction Status Date / Time adhesive Allergy Rash Verified 09/29/22 14:58 Review of Systems Review of Systems: Yes all other systems are reviewed and are negative [facility] Past Medical History Medical History Arthritis COPD (chronic obstructive pulmonary disease) Diabetes Disc disorder of cervical region Disc disorder of lumbar region DVT of axillary vein, acute HLD (hyperlipidemia) HTN (hypertension) Scoliosis Surgical History Previous back surgery Status post knee replacement Family History Family History Father Stroke Other Diabetes Social History Social History Household Members: Children Household Members Other:: daughter Housing: Condominium Do you presently have visiting nurse or other home services: Yes Alcohol intake: never Patient Tobacco Use Status: Current everyday Tobacco user Tobacco use type: Cigarette Cigarette Packs Per Day: 1.5 Cigarettes Per Day: 30.0 Years Smoked: 40 +/- Smoked in Last 30 Days: Yes Second Hand Smoke Exposure: No Use of substances other than those prescribed or required for medical reasons: No Advance Directives: Yes Advance Directives Information Provided: No Advance Directives on File: No Advance Directives Date on File: 11/24/21 service: No Physical Exam ED Vital Signs: Vital Signs - 24 hr 02/19/23 18:05 02/19/23 18:32 02/19/23 19:17 Temperature 97 F 98.1 F Pulse Rate 122 H 121 H 124 H Respiratory Rate 22 H 22 H 19 Blood Pressure 148/85 H 129/84 107/85 Pulse Oximetry 100 99 99 Oxygen Delivery Method Room Air Room Air Room Air 02/19/23 20:18 Temperature Pulse Rate 108 H Respiratory Rate 18 Blood Pressure 105/75 Pulse Oximetry 97 Oxygen Delivery Method Room Air BMI result Body Mass Index 42.0 Appearance: Alert. Oriented X3. No acute distress. Eyes: PERRLA, No Nystagmus ENT: Pharynx normal. Oral Mucosa moist Neck: Normal inspection. Neck supple. CVS: tachycardic regular rate, no murmur or rub, Pulses normal. Respiratory: No respiratory distress. Equal air entry bilateral, no wheezing/rales/rhonchi Abdomen: Soft and nontender. Bowel sounds are present, no mass palpable, no CVA tenderness Skin: Skin warm and dry. Normal skin color. Normal skin turgor. Extremities: trace lower extremity edema. No calf tenderness Neuro: Oriented X 3. No motor deficit. No sensory deficit.No cerebellar signs , cranial nerves II-XII intact Course Course Course Narrative: This is an RME: Additional HPI, ROS, PE not included below will be deferred to primary provider. This is [id number]-female, with a past medical history of A Fib & a flutter on Xarelto, hypertension, hyperlipidemia, diabetes, morbid obesity, presenting to the ER with complaints of shortness of breath and dizziness since today. She has a history of atrial flutter was admitted with cardioversion on February 05. respirations 22, pulse 122. Plan: labs, EKG further ED eval by primary provider in [place] emergency Department. Medications Administered Generic Name Dose Route Start Last Admin Trade Name Freq PRN Reason Stop Dose Admin Diltiazem HCl 125 mg/ Sodium 125 mls @ 0 mls/hr 02/19/23 20:00 02/19/23 20:27 Chloride IVCONT 10 mg/hr .Q0M MONSERRAT 10 mls/hr Administration Protocol Per Protocol Discontinued Medications Generic Name Dose Route Start Last Admin Trade Name Freq PRN Reason Stop Dose Admin Diltiazem HCl 10 mg 02/19/23 19:05 02/19/23 19:19 Diltiazem Hcl 50 Mg/10 Ml Vial IVPUSH 02/19/23 19:06 10 mg STAT STA Administration Medical Decision Making Medical Decision Making [facility] Narrative: patient with atrial flutter with rapid ventricular rate with 2-1 av conduction patient preferred to give medication instead of cardiac shock, case discussed with Dr. Mcqueen telephone clerk telegraph office advised to start Cardizem drip. Differential Diagnosis Differential Diagnoses: The differential diagnosis associated with the presentation includes atrial flutter/fib Admission/Observation Consideration of admission/observation: Escalation of care including admission/observation considered Consult Healthcare Provider Management of the patient was discussed with: Hospitalist Lab Data [facility] Lab Attestation statement: I reviewed the patient's lab results. 02/19/23 18:23 02/19/23 18:23 Labs: Lab Results 02/19/23 02/19/23 02/19/23 Range/Units 18:23 18: 18:23 WBC 8.1 (4.8-10.8) X10*3/uL RBC 5.80 H (4.20-5.50) X10*6/uL Hgb 16.4 H (12.0-16.0) g/dl Hct 52.4 H (37.0-47.0) % MCV 90.3 (80.0-98.0) fL MCH 28.3 (27.0-33.0) pg MCHC 31.3 (31.0-35.0) g/dl RDW 15.7 (11.0-16.0) % Plt Count 202 (160-400) X10*3/uL MPV 10.6 (9.4-12.3) fL Immature Gran % (Auto) 0.2 (0.0-0.4) % Neut % (Auto) 51.8 (45-73) % Lymph % (Auto) 36.5 (20-40) % Love % (Auto) 7.9 (2-11) % Eos % (Auto) 3.0 (0-4) % Baso % (Auto) 0.6 (0-2) % Lymph # (Auto) 3.0 (1.2-4.9) X10*3/uL Love # (Auto) 0.6 (0.1-1.2) X10*3/uL Eos # (Auto) 0.2 (0.0-0.4) X10*3/uL Baso # (Auto) 0.1 (0.0-0.2) X10*3/uL Abs Immat Gran (auto) 0.02 (0.00-0.03) X10*3/uL Absolute Neuts (auto) 4.2 (2.0-8.3) x10*3/uL Absolute Nucleated RBC 0.000 (0.0-0.012) X10*3/uL Nucleated RBC % (auto) 0.0 (0.0-0.2) /100WBC PT 21.8 H (11.1-13.3) SEC INR 1.8 H (0.9-1.1) APTT 41.1 H (26.0-36.4) SEC Sodium 141 (135-145) mmol/L Potassium 4.0 (3.3-5.1) mmol/L Chloride 101 (96-108) mmol/L Carbon Dioxide 25 (22-29) mmol/L Anion Gap 19 (12-20) BUN 13 (9-16) mg/dL Creatinine 0.90 (0.5-1.4) mg/dL Estim Creat Clear Calc 79.1 Estimated GFR > 60 Random Glucose 195 H (60-115) mg/dL Calcium 10.1 D (8.4-10.2) mg/dL Magnesium 2.0 (1.6-2.6) mg/dL B-Natriuretic Peptide (<100) pg/mL 02/19/23 Range/Units 18:23 WBC (4.8-10.8) X10*3/uL RBC (4.20-5.50) X10*6/uL Hgb (12.0-16.0) g/dl Hct (37.0-47.0) % MCV (80.0-98.0) fL MCH (27.0-33.0) pg MCHC (31.0-35.0) g/dl RDW (11.0-16.0) % Plt Count (160-400) X10*3/uL MPV (9.4-12.3) fL Immature Gran % (Auto) (0.0-0.4) % Neut % (Auto) (45-73) % Lymph % (Auto) (20-40) % Love % (Auto) (2-11) % Eos % (Auto) (0-4) % Baso % (Auto) (0-2) % Lymph # (Auto) (1.2-4.9) X10*3/uL Love # (Auto) (0.1-1.2) X10*3/uL Eos # (Auto) (0.0-0.4) X10*3/uL Baso # (Auto) (0.0-0.2) X10*3/uL Abs Immat Gran (auto) (0.00-0.03) X10*3/uL Absolute Neuts (auto) (2.0-8.3) x10*3/uL Absolute Nucleated RBC (0.0-0.012) X10*3/uL Nucleated RBC % (auto) (0.0-0.2) /100WBC PT (11.1-13.3) SEC INR (0.9-1.1) APTT (26.0-36.4) SEC Sodium (135-145) mmol/L Potassium (3.3-5.1) mmol/L Chloride (96-108) mmol/L Carbon Dioxide (22-29) mmol/L Anion Gap (12-20) BUN (9-16) mg/dL Creatinine (0.5-1.4) mg/dL Estim Creat Clear Calc Estimated GFR Random Glucose (60-115) mg/dL Calcium (8.4-10.2) mg/dL Magnesium (1.6-2.6) mg/dL B-Natriuretic Peptide 239 H (<100) pg/mL Independent Interpretation I performed an independent interpretation of an: EKG Interpretation: atrial flutter with 2-1 av conduction heart rate 122 LVH no acute ischemic change Critical Care Time Critical Care Time Critical Care Time: Yes Total Critical Care Time: 45 Attestation: The patient was critically ill with a high probability of imminent or life threatening deterioration. I spent greater than 50 minutes of discontinuous time evaluating the patient,delivering critical care at the bedside, discussing and evaluating pertinent data with consultants. Critical care time does not include time spent performing separately billable procedures or teaching. Total time spent performing critical care was 45 minutes. Discharge Plan Discharge Clinical Impression: Atrial flutter with rapid ventricular response Patient Disposition: Admitted As Inpatient
[2023-02-19 18:29] LABS: Basophils Absolute Auto 0.1 X10*3/uL (0.0-0.2); Basophils Percent Auto 0.6 % (0-2); Eosinophils Absolute Auto 0.2 X10*3/uL (0.0-0.4); Hematocrit 52.4 % (37.0-47.0); Hemoglobin 16.4 g/dl (12.0-16.0); Imm Gran Abs Auto 0.02 X10*3/uL (0.00-0.03); Imm Gran Pct Auto 0.2 % (0.0-0.4); Lymphocytes Percent Auto 36.5 % (20-40); MANUAL DIFF FLAG NO; Mean Corpuscular HGB Conc 31.3 g/dl (31.0-35.0); Mean Corpuscular Hemoglobin 28.3 pg (27.0-33.0); Mean Corpuscular Volume 90.3 fL (80.0-98.0); Mean Platelet Volume 10.6 fL (9.4-12.3); Monocytes Absolute Auto 0.6 X10*3/uL (0.1-1.2); Monocytes Percent Auto 7.9 % (2-11); Neutrophils Absolute Auto 4.2 x10*3/uL (2.0-8.3); Neutrophils Percent Auto 51.8 % (45-73); Platelet Count 202 X10*3/uL (160-400); Red Cell Distribution Width 15.7 % (11.0-16.0); White Blood Count 8.1 X10*3/uL (4.8-10.8)
[2023-02-19 18:34] LABS: INTERNATIONAL NORM RATIO 1.8 (0.9-1.1); Prothrombin Time 21.8 SEC (11.1-13.3)
[2023-02-19 18:37] LABS: Partial Thromboplastin Time 41.1 SEC (26.0-36.4)
[2023-02-19 18:57] LABS: Anion Gap 19 (12-20); Blood Urea Nitrogen 13 mg/dL (9-16); Calcium 10.1 mg/dL (8.4-10.2); Carbon Dioxide 25 mmol/L (22-29); Chloride 101 mmol/L (96-108); Creatinine Clr Calc Pharmacy 79.1; Estimated Glomerular Filt Rate > 60; Glucose Random 195 mg/dL (60-115); Sodium 141 mmol/L (135-145)
[2023-02-19 19:05] LABS: B Type Natriuretic Peptide 239 pg/mL (<100)
[2023-02-19] MEDS: dilTIAZem HCL 50 MG/10 ML VIAL 10 MG IVPUSH (19:19)
--- NOTE | 2023-02-19 20:11 | PHA.MEDREC ---
Pharmacy Consult ? Medication Reconciliation Pharmacy has completed the medication reconciliation. Patient confirmed all medications. Reports tomorrow she starts amiodarone 1 tablet. Reported she was told to stop colchicine. Reports no longer having cyclobenzaprine. And is no longer taking oxycodone or prednisone. Charlette Wylie, PharmD
[2023-02-19] MEDS: dilTIAZem HCL 125 MG in 0.9 % Sodium Chloride 100 ML 10 MG IVCONT (20:27)
--- NOTE | 2023-02-19 20:54 | PM.IMHP ---
History of Present Illness Date of Service: 02/19/23 Chief Complaint: Feeling on while 57-year-old female past medical history of a flutter, COPD, HLD, HTN, chronic back pain, who comes into the hospital stating that she has been feeling unwell for the past 2 days. Of note patient was discharged from the hospital on 02/10 after being managed for a flutter with rapid ventricular response as well as COPD exacerbation. Patient reports that she checked her blood pressure and he was fluctuating up and down, she also checked her heart rate which was also fluctuating up and down, she states that she has hot flashes that she is going through menopause and has been exacerbated when the past 2 days. She otherwise denies any chest pain, no shortness of breath, no dizziness, she has a chronic headache that has been constant since discharge from the hospital. She denies any cough, no shortness of breath, no sputum production, no abdominal pain nausea or vomiting, no diarrhea constipation, no urinary symptoms and no lower extremity edema Recurrent heart rate is in the 120s, a flutter. Other vitals are stable Labs are significant for WBC count of 8.1, hemoglobin of 16.4, hematocrit 52.4, INR of 1.8, labs otherwise unremarkable BNP of 239 EKG shows a flutter with 2-1 AV conduction This was discussed with Cardiology, patient will be readmitted for further management Review of Systems Review of Systems: Yes all other systems are reviewed and are negative [facility] Medical History Arthritis COPD (chronic obstructive pulmonary disease) Diabetes Disc disorder of cervical region Disc disorder of lumbar region DVT of axillary vein, acute HLD (hyperlipidemia) HTN (hypertension) Scoliosis Family History Father Stroke Other Diabetes Surgical History Previous back surgery Status post knee replacement Social History Household Members: Children Household Members Other:: daughter Housing: Condominium Do you presently have visiting nurse or other home services: Yes Alcohol intake: never Patient Tobacco Use Status: Current everyday Tobacco user Tobacco use type: Cigarette Cigarette Packs Per Day: 1.5 Cigarettes Per Day: 30.0 Years Smoked: 40 +/- Smoked in Last 30 Days: Yes Second Hand Smoke Exposure: No Use of substances other than those prescribed or required for medical reasons: No Advance Directives: Yes Advance Directives Information Provided: No Advance Directives on File: No Advance Directives Date on File: 11/24/21 service: No Meds Allergies Allergy/AdvReac Type Severity Reaction Status Date / Time adhesive Allergy Rash Verified 09/29/22 14:58 Active Medications: Current Medications Acetaminophen (Acetaminophen 325 Mg Tablet) 650 mg PO Q6H PRN PRN Reason: Pain, Mild (Pain Scale 1-3) Docusate Sodium (Docusate Sodium 100 Mg Capsule) 100 mg PO DAILY PRN PRN Reason: Constipation Diltiazem HCl 125 mg/ Sodium (Chloride) 125 mls @ 0 mls/hr IVCONT .Q0M [facility], [facility]; Protocol Last Admin: 02/19/23 20:27 Dose: 10 mg/hr, 10 mls/hr Lidocaine (Lidocaine 4 % Patch Adh..Patch) 1 patch TRANSDERMA ONCE ONE; Protocol Stop: 02/19/23 20:52 Morphine Sulfate (Morphine Sulfate 4 Mg/Ml Cartridge) 4 mg IVPUSH ONCE ONE; Protocol Stop: 02/19/23 20:52 Ondansetron HCl (Ondansetron Hcl 4 Mg/2 Ml Vial) 4 mg IVPUSH Q8H PRN PRN Reason: Nausea and Vomiting Sodium Chloride (0.9 % Sodium Chloride Flush 3 Ml Syringe) 3 ml IVFLUSH [facility] Home Medications Medication Instructions Recorded Confirmed Last Taken Type albuterol sulfate 90 mcg/actuation 2 puff inhalation Q4-6H PRN 11/24/21 02/19/23 02/19/23 History aerosol inhaler Respiratory Distress duloxetine 40 mg capsule,delayed 40 mg PO DAILY 11/24/21 02/19/23 02/19/23 History release sprinkle duloxetine 60 mg capsule,delayed 60 mg PO DAILY 11/24/21 02/19/23 02/19/23 History release loratadine 10 mg tablet 10 mg PO DAILY 11/24/21 02/19/23 02/19/23 History penicillin V potassium 250 mg 250 mg PO BID 11/24/21 02/19/23 02/19/23 History tablet rosuvastatin 10 mg tablet 10 mg PO DAILY 11/24/21 02/19/23 02/19/23 History nitrofurantoin 100 mg PO BID 12/31/21 02/19/23 02/19/23 History monohydrate/macrocrystals 100 mg capsule ropinirole 0.5 mg tablet 0.5 mg PO TID 05/01/22 02/19/23 02/19/23 History budesonide-formoterol HFA 80 2 puff inhalation BID 09/29/22 02/19/23 02/19/23 History mcg-4.5 mcg/actuation aerosol inhaler (Symbicort) clonidine HCl 0.1 mg tablet 0.1 mg PO BID PRN Anxiety 02/05/23 02/19/23 02/19/23 History cyclobenzaprine 5 mg tablet 5 mg PO BEDTIME PRN muscle spasm 02/05/23 02/19/23 02/19/23 History ipratropium bromide 21 mcg (0.03 2 spray intranasal BID PRN Allergy 02/05/23 02/19/23 02/19/23 History %) nasal spray Symptoms lamotrigine 200 mg tablet 200 mg PO BEDTIME 02/05/23 02/19/23 02/19/23 History lamotrigine 25 mg tablet 50 mg PO BEDTIME 02/05/23 02/19/23 02/19/23 History nicotine 21 mg/24 hr daily 21 mg transdermal DAILY PRN 02/19/23 02/19/23 02/19/23 History transdermal patch Nicotine Cravings Physical Exam Vital Signs and Narrative: Vital Signs: Last Vital Signs Temp 98.1 F 02/19/23 19:17 Pulse 108 H 02/19/23 20:18 Resp 18 02/19/23 20:18 BP 105/75 02/19/23 20:18 Pulse Ox 97 02/19/23 20:18 O2 Del Method Room Air 02/19/23 20:18 BMI result Body Mass Index 42.0 Const: General: cooperative and no acute distress Orientation/consciousness: patient oriented x3 Eyes: General: appearance normal, both eyes and all related structures Resp: Effort & Inspection: normal respiratory effort Auscultation: clear to auscultation bilaterally Cardio: Other: Fast rate, irregular GI: Palpation (GI): Soft to palpation Auscultation: normal bowel sounds Skin: General skin exam: no rashes or lesions noted Neuro: General: patient oriented x3 Cognition (Neuro): normal cognition Extrem: General: Yes normal to inspection and Yes no pedal edema Results Labs 02/19/23 18:23 02/19/23 18:23 Labs: Laboratory Results - last 24 hr 02/19/23 02/19/23 02/19/23 18:23 18:23 18:23 MCV 90.3 MCH 28.3 MCHC 31.3 RDW 15.7 Plt Count 202 MPV 10.6 Immature Gran % (Auto) 0.2 Neut % (Auto) 51.8 Lymph % (Auto) 36.5 [place] % (Auto) 7.9 Eos % (Auto) 3.0 Baso % (Auto) 0.6 Lymph # (Auto) 3.0 [place] # (Auto) 0.6 Eos # (Auto) 0.2 Baso # (Auto) 0.1 Abs Immat Gran (auto) 0.02 Absolute Neuts (auto) 4.2 Absolute Nucleated RBC 0.000 Nucleated RBC % (auto) 0.0 PT 21.8 H INR 1.8 H APTT 41.1 H Anion Gap 19 Estim Creat Clear Calc 79.1 Estimated GFR > 60 Random Glucose 195 H Calcium 10.1 D Magnesium 2.0 B-Natriuretic Peptide 02/19/23 18:23 MCV MCH MCHC RDW Plt Count MPV Immature Gran % (Auto) Neut % (Auto) Lymph % (Auto) [place] % (Auto) Eos % (Auto) Baso % (Auto) Lymph # (Auto) [place] # (Auto) Eos # (Auto) Baso # (Auto) Abs Immat Gran (auto) Absolute Neuts (auto) Absolute Nucleated RBC Nucleated RBC % (auto) PT INR APTT Anion Gap Estim Creat Clear Calc Estimated GFR Random Glucose Calcium Magnesium B-Natriuretic Peptide 239 H Assessment and Plan (1) Atrial flutter with rapid ventricular response: Status: Acute (2) Chronic respiratory failure requiring treatment with nocturnal BPAP by mask: Status: Acute Plan # A flutter with RVR - s/p cardioveriosn on previous admission in 02/10. - was started on amiodarone as well n previous admission - Pt returns with HR in the 120s/130s - At this time , will admit, place on cardizem dripo, continue amio - Continue Xaralto for rate control - Cardiology consulted # Hx of HF - Not in exacerbation - continue home Lasix -monitor while on status # history of COPD - not in exacerbation - continue home inhalers DVT prophylaxis: Xarelto Patient's need for management of a flutter with RVR patient require minimum 2 nights inpatient hospital stay for further management and monitoring Time Spent With Patient Time: Total time managing care of this patient today ____ minutes. Quality Stroke Does the patient have a stroke diagnosis?: No VTE Prior VTE?: No VTE Risk Level:: Medical - moderate - high VTE Device Contraindication: Treatment Not Indicated VTE Drug Contraindication: N/A - Med Ordered
[2023-02-19] MEDS: lamoTRIgine 25 MG TABLET 50 MG PO (21:32)
[2023-02-19] MEDS: Nitrofurantoin Monohyd/M-Cryst 100 MG CAPSULE PO (21:32)
[2023-02-19] MEDS: Penicillin V Potassium 250 MG TABLET PO (21:32)
[2023-02-19] MEDS: Lidocaine 4 % Patch ADH..PATCH 1 PATCH TRANSDERMA (21:33)
[2023-02-19] MEDS: lamoTRIgine 100 MG TABLET 200 MG PO (21:33)
[2023-02-19] MEDS: rOPINIRole HCL 0.5 MG TABLET PO (22:36)
--- NOTE | 2023-02-19 23:02 | PC.NURSE ---
This mortgage underwriter assumed care of this Pt at 1900. Pt A&Ox4, reports 9/10 chronic neck radiating down back to tailbone. HR 124 in A-flutter, Pt denies CP, reports heaviness to chest and SOB with exertion, Spo2 100% on RA, RR 22, lung sounds clear. Med given as documented, BP soft Metoprolol/Morphine held per Dr. Joya. 2300: Dilt drip decrease to 5 mg/hr per Dr. Joya. HR in the 80s.
[2023-02-20] VITALS (11 sets, daily range): BP systolic 90–151; BP diastolic 52–84; PULSE 80–110; RESP 16–20; TEMP 36.1–37; O2SAT 95–99; BMI 41.9
[2023-02-20] MEDS: 0.9 % Sodium Chloride Flush 3 ML SYRINGE IVFLUSH ×3 (00:08→20:09)
--- NOTE | 2023-02-20 01:32 | PC.NURSE ---
RN to RN report given to Lester. Pt will be transported to room 472, Pt aware of plan.
[2023-02-20] MEDS: Acetaminophen 325 MG TABLET 650 MG PO (02:32)
[2023-02-20] MEDS: Butalb/Acetamin/Caff 50/325/40 TABLET 1 TAB PO (05:51)
[2023-02-20] MEDS: DULoxetine HCl 60 MG CAPSULE.DR PO (08:14)
[2023-02-20] MEDS: Nitrofurantoin Monohyd/M-Cryst 100 MG CAPSULE PO ×2 (08:14→20:09)
[2023-02-20] MEDS: DULoxetine HCl 20 MG CAPSULE.DR 40 MG PO (08:14)
[2023-02-20] MEDS: rOPINIRole HCL 0.5 MG TABLET PO ×3 (08:14→20:10)
[2023-02-20] MEDS: Amiodarone HCL 200 MG TABLET PO (08:14)
[2023-02-20] MEDS: Atorvastatin Calcium 40 MG TABLET PO (08:15)
[2023-02-20] MEDS: Metoprolol Succinate ER 50 MG TAB.ER.24H PO ×2 (08:15→20:09)
[2023-02-20] MEDS: Loratadine 10 MG TABLET PO (08:15)
[2023-02-20] MEDS: Penicillin V Potassium 250 MG TABLET PO ×2 (08:15→20:09)
[2023-02-20] MEDS: Rivaroxaban 20 MG TABLET PO (08:15)
[2023-02-20] MEDS: Furosemide 40 MG TABLET PO (08:15)
[2023-02-20 08:31] LABS: Glucose, Whole Blood 187 mg/dL (60-115)
[2023-02-20 09:01] LABS: Alanine Aminotransferase 20 U/L (0-31); Albumin Level 3.5 g/dL (3.5-5.0); Alkaline Phosphatase 68 U/L (39-117); Anion Gap 18 (12-20); Aspartate Amino Transferase 14 U/L (5-31); Bilirubin Total 0.4 mg/dL (0.0-1.0); Blood Urea Nitrogen 13 mg/dL (9-16); Calcium 9.6 mg/dL (8.4-10.2); Carbon Dioxide 24 mmol/L (22-29); Chloride 102 mmol/L (96-108); Creatinine Clr Calc Pharmacy 84.6; Estimated Glomerular Filt Rate > 60; Glucose Random 188 mg/dL (60-115); Potassium 3.5 mmol/L (3.3-5.1); Sodium 140 mmol/L (135-145)
[2023-02-20] MEDS: dilTIAZem HCL CD 180 MG CAP.ER.24H PO (10:37)
[2023-02-20] MEDS: oxyCODONE HCl Immed Release 5 MG TABLET PO (10:37)
--- NOTE | 2023-02-20 11:38 | MHC.CM.PN ---
IMM 02/20. Pt admitted with dx: A-flutter with RVR. Pt lives at her daughters house, uses a cane/walker, O2/Bipap, and has a CRITICAL CARE UNIT NURSE and current [facility] services. D/C plan to return home with resumptions of previous services. Pts family to transport. HCP copy requested. PCP: Kyle Hays vax: x 3
--- NOTE | 2023-02-20 13:49 | PM.CNCAR ---
History of Present Illness History of Present Illness Date of Service: 02/20/23 Requesting physician: Cortney Veronica Consult reason: other (Recurrent atrial flutter) Chief complaint: A flutter w/ rapid ventricular response Narrative: I was consulted to see Shruthi in cardiology consultation today for recurrent atrial flutter. She is a 57-year-old female was recently admitted with right heart failure with atrial flutter. She was then cardioverted after DANIELLE guidance cardioversion and was started on amiodarone. She has been taking amiodarone regularly. Yesterday she called the answering service [employer] that she is having low blood pressure and having symptoms of rapid heart rate again not feeling well. She was advised to come to emergency room as she was documented to be in atrial flutter with rapid ventricular response. She was admitted IV Cardizem drip. Overnight her rate has been controlled. She has had no overt heart failure symptoms. She denies any lightheadedness, syncope. Blood pressure is optimally control at this point time. She does have high likelihood of underlying obstructive sleep apnea. No current sleep study has been performed. She was admitted and last LV ejection fraction by transesophageal echocardiogram was 55-60%. Review of Systems Constitutional: Constitutional: Denies body ache(s), Denies chills, Reports daytime sleepiness, Denies fever(s) and Reports weakness Cardiovascular: Cardiovascular: Denies chest pain, Denies leg edema, Reports lightheadedness, Denies Loss of Consciousness, Reports palpitations and Reports dyspnea on exertion Respiratory: Respiratory: Reports dyspnea on exertion Gastrointestinal: Gastrointestinal: Reports no additional gastrointestinal complaints Genitourinary: Genitourinary: Reports no additional female genitourinary complaints Neurologic: Reports weakness Psychiatric: Psychiatric: Reports no additional psychiatric complaints Endocrine: Endocrine: Reports palpitations PMF Past Medical History Medical History Arthritis COPD (chronic obstructive pulmonary disease) Diabetes Disc disorder of cervical region Disc disorder of lumbar region DVT of axillary vein, acute HLD (hyperlipidemia) HTN (hypertension) Scoliosis Family History Family History Father Stroke Other Diabetes Surgical History Surgical History Previous back surgery Status post knee replacement Social History Social History Household Members: Family Household Members Other:: daughter Housing: Apartment Do you presently have visiting nurse or other home services: Yes Alcohol intake: never Patient Tobacco Use Status: Current everyday Tobacco user Tobacco use type: Cigarette Cigarette Packs Per Day: 1.5 Cigarettes Per Day: 20 Years Smoked: 40 +/- Second Hand Smoke Exposure: No Advance Directives Date on File: 11/24/21 service: No Meds Allergies Allergy/AdvReac Type Severity Reaction Status Date / Time adhesive Allergy Rash Verified 09/29/22 14:58 Active Medications: Current Medications Acetaminophen (Acetaminophen 325 Mg Tablet) 650 mg PO Q6H PRN PRN Reason: Pain, Mild (Pain Scale 1-3) Last Admin: 02/20/23 02:32 Dose: 650 mg Albuterol Sulfate (Albuterol Sulfate 90 Mcg 8 Gm Inhaler) 2 puff INHALE Q4H PRN PRN Reason: Respiratory Distress Amiodarone HCl (Amiodarone Hcl 200 Mg Tablet) 200 mg PO DAILY [place] Last Admin: 02/20/23 08:14 Dose: 200 mg Atorvastatin Calcium (Atorvastatin Calcium 40 Mg Tablet) 40 mg PO DAILY [place] Last Admin: 02/20/23 08:15 Dose: 40 mg Clonidine HCl (Clonidine Hcl 0.1 Mg Tablet) 0.1 mg PO BID PRN; Protocol PRN Reason: Anxiety Cyclobenzaprine HCl (Cyclobenzaprine Hcl 5 Mg Tablet) 5 mg PO BEDTIME PRN PRN Reason: muscle spasm Diltiazem HCl (Diltiazem Hcl Cd 180 Mg Cap.Er.24h) 180 mg PO DAILY [place]; Protocol Last Admin: 02/20/23 10:37 Dose: 180 mg Docusate Sodium (Docusate Sodium 100 Mg Capsule) 100 mg PO DAILY PRN PRN Reason: Constipation Duloxetine HCl (Duloxetine Hcl 20 Mg Capsule.Dr) 40 mg PO DAILY [place] Last Admin: 02/20/23 08:14 Dose: 40 mg Duloxetine HCl (Duloxetine Hcl 60 Mg Capsule.Dr) 60 mg PO DAILY [place] Last Admin: 02/20/23 08:14 Dose: 60 mg Fluticasone/Vilanterol (Fluticasone/Vilanterol 200/25 Blst.W.Dev) 1 puff INHALE RDAILY [facility] Furosemide (Furosemide 40 Mg Tablet) 40 mg PO DAILY [facility]; Protocol Last Admin: 02/20/23 08:15 Dose: 40 mg Diltiazem HCl 125 mg/ Sodium (Chloride) 125 mls @ 0 mls/hr IVCONT .Q0M [facility]; Protocol Last Titration: 02/20/23 12:38 Dose: 0 mg/hr, 0 mls/hr Ipratropium [place] (Ipratropium [place] Zia 0.03 % 30 Ml [place]) 2 spray NOSTRIL-B BID PRN PRN Reason: Allergy Symptoms Lamotrigine (Lamotrigine 100 Mg Tablet) 200 mg PO BEDTIME [facility] Last Admin: 02/19/23 21:33 Dose: 200 mg Lamotrigine (Lamotrigine 25 Mg Tablet) 50 mg PO BEDTIME [facility] Last Admin: 02/19/23 21:32 Dose: 50 mg Loratadine (Loratadine 10 Mg Tablet) 10 mg PO DAILY [facility] Last Admin: 02/20/23 08:15 Dose: 10 mg Metoprolol Succinate (Metoprolol Succinate Er 50 Mg Tab.Er.24h) 50 mg PO BID [facility]; Protocol Last Admin: 02/20/23 08:15 Dose: 50 mg Nicotine (Nicotine 21 Mg Patch.Td24) 21 mg TRANSDERMA DAILY PRN PRN Reason: Nicotine Cravings Nitrofurantoin Macrocrystals (Nitrofurantoin Monohyd/M-Cryst 100 Mg Capsule) 100 mg PO BID [facility] Last Admin: 02/20/23 08:14 Dose: 100 mg Ondansetron HCl (Ondansetron Hcl 4 Mg/2 Ml Vial) 4 mg IVPUSH Q8H PRN PRN Reason: Nausea and Vomiting Penicillin V Potassium (Penicillin V Potassium 250 Mg Tablet) 250 mg PO BID [facility] Last Admin: 02/20/23 08:15 Dose: 250 mg Rivaroxaban (Rivaroxaban 20 Mg Tablet) 20 mg PO DAILY [facility] Last Admin: 02/20/23 08:15 Dose: 20 mg Ropinirole HCl (Ropinirole Hcl 0.5 Mg Tablet) 0.5 mg PO TID [facility] Last Admin: 02/20/23 08:14 Dose: 0.5 mg Sodium Chloride (0.9 % Sodium Chloride Flush 3 Ml Syringe) 3 ml IVFLUSH QSHIFT [facility] Last Admin: 07/28/23 08:17 Dose: Not Given Home Medications Medication Instructions Recorded Confirmed Last Taken Type albuterol sulfate 90 mcg/actuation 2 puff inhalation Q4-6H PRN 11/24/21 02/19/23 02/19/23 History aerosol inhaler Respiratory Distress duloxetine 40 mg capsule,delayed 40 mg PO DAILY 11/24/21 02/19/23 02/19/23 History release sprinkle duloxetine 60 mg capsule,delayed 60 mg PO DAILY 11/24/21 02/19/23 02/19/23 History release loratadine 10 mg tablet 10 mg PO DAILY 11/24/21 02/19/23 02/19/23 History penicillin V potassium 250 mg 250 mg PO BID 11/24/21 02/19/23 02/19/23 History tablet rosuvastatin 10 mg tablet 10 mg PO DAILY 11/24/21 02/19/23 02/19/23 History nitrofurantoin 100 mg PO BID 12/31/21 02/19/23 02/19/23 History monohydrate/macrocrystals 100 mg capsule ropinirole 0.5 mg tablet 0.5 mg PO TID 05/01/22 02/19/23 02/19/23 History budesonide-formoterol HFA 80 2 puff inhalation BID 09/29/22 02/19/23 02/19/23 History mcg-4.5 mcg/actuation aerosol inhaler (Symbicort) clonidine HCl 0.1 mg tablet 0.1 mg PO BID PRN Anxiety 02/05/23 02/19/23 02/19/23 History cyclobenzaprine 5 mg tablet 5 mg PO BEDTIME PRN muscle spasm 02/05/23 02/19/23 02/19/23 History ipratropium bromide 21 mcg (0.03 2 spray intranasal BID PRN Allergy 02/05/23 02/19/23 02/19/23 History %) nasal spray Symptoms lamotrigine 200 mg tablet 200 mg PO BEDTIME 02/05/23 02/19/23 02/19/23 History lamotrigine 25 mg tablet 50 mg PO BEDTIME 02/05/23 02/19/23 02/19/23 History nicotine 21 mg/24 hr daily 21 mg transdermal DAILY PRN 02/19/23 02/19/23 02/19/23 History transdermal patch Nicotine Cravings Physical Exam Vital Signs: Vital Signs: Last Vital Signs Temp 97.1 F 02/20/23 11:54 Pulse 83 02/20/23 11:54 Resp 20 02/20/23 11:54 BP 101/60 02/20/23 11:54 Pulse Ox 97 02/20/23 11:54 O2 Del Method Room Air 02/20/23 11:54 O2 Flow Rate 97 02/19/23 21:56 BMI result Body Mass Index 41.9 Const: General: cooperative, comfortable, no acute distress, alert and awake Nutritional Appearance: obese morbidly obese Orientation/consciousness: patient oriented x3 Limitations: no limitations HEENT: Head: Yes normocephalic and Yes atraumatic Neck: Neck: Yes trachea midline, Yes supple and Yes no JVD Resp: Effort & Inspection: normal respiratory effort Auscultation: diminished lung sounds Cardio: Jugular venous distension: no JVD Rhythm: abnormal rhythm irregularly irregular Heart sounds: S1 normal heart sound present and S2 normal heart sound present GI: Auscultation: normal bowel sounds Skin: General skin exam: no rashes or lesions noted and ecchymosis Neuro: General: patient oriented x3 and no focal motor deficits Extrem: General: Yes no clubbing, cyanosis or edema Objective Labs and Meds 02/19/23 18:23 02/20/23 07:47 Lab results: Laboratory Results - last 24 hr 02/19/23 02/19/23 02/19/23 18:23 18:23 18:23 WBC 8.1 RBC 5.80 H Hgb 16.4 H Hct 52.4 H MCV 90.3 MCH 28.3 MCHC 31.3 RDW 15.7 Plt Count 202 MPV 10.6 Immature Gran % (Auto) 0.2 Neut % (Auto) 51.8 Lymph % (Auto) 36.5 [place] % (Auto) 7.9 Eos % (Auto) 3.0 Baso % (Auto) 0.6 Lymph # (Auto) 3.0 [place] # (Auto) 0.6 Eos # (Auto) 0.2 Baso # (Auto) 0.1 Abs Immat Gran (auto) 0.02 Absolute Neuts (auto) 4.2 Absolute Nucleated RBC 0.000 Nucleated RBC % (auto) 0.0 PT 21.8 H INR 1.8 H APTT 41.1 H Sodium 141 Potassium 4.0 Chloride 101 Carbon Dioxide 25 Anion Gap 19 BUN 13 Creatinine 0.90 Estim Creat Clear Calc 79.1 Estimated GFR > 60 POC Glucose Random Glucose 195 H Calcium 10.1 D Magnesium 2.0 Total Bilirubin AST ALT Alkaline Phosphatase B-Natriuretic Peptide Total Protein Albumin 02/19/23 02/20/23 02/20/23 18:23 07:47 07:58 WBC RBC Hgb Hct MCV MCH MCHC RDW Plt Count MPV Immature Gran % (Auto) Neut % (Auto) Lymph % (Auto) [place] % (Auto) Eos % (Auto) Baso % (Auto) Lymph # (Auto) [place] # (Auto) Eos # (Auto) Baso # (Auto) Abs Immat Gran (auto) Absolute Neuts (auto) Absolute Nucleated RBC Nucleated RBC % (auto) PT INR APTT Sodium 140 Potassium 3.5 Chloride 102 Carbon Dioxide 24 Anion Gap 18 BUN 13 Creatinine 0.84 Estim Creat Clear Calc 84.6 Estimated GFR > 60 POC Glucose 187 H Random Glucose 188 H Calcium 9.6 Magnesium Total Bilirubin 0.4 AST 14 ALT 20 Alkaline Phosphatase 68 B-Natriuretic Peptide 239 H Total Protein 7.0 Albumin 3.5 Assessment and Plan (1) Atrial flutter with rapid ventricular response: Status: Acute Recurrent atrial flutter with symptoms of low blood pressure lightheadedness with rapid heart rate despite recent cardioversion and on amiodarone therapy. Patient has been compliant with the medical therapy as per her. She has been taking oral anticoagulation therapy. Rate is better control and symptom improvement with IV Cardizem drip. Transition to p.o. Cardizem CD 1 80 mg daily and slowly taper and discontinue Cardizem drip. Continue metoprolol and amiodarone. I thing synchronized cardioversion is going to have limited benefit as chance of recurrence is high. I think patient will most benefit from ablation. This was discussed with her. Will refer her to tour driver and expedite her ablation. Continue full oral anticoagulation with Xarelto. She requires sleep study as soon as possible and most likely has sleep apnea and CPAP therapy will be required. Continue participate in weight loss program. Continue blood pressure control. Heart failure is currently optimized. Will sign of the case. Thank you for allowing me to partake in the care Time Spent With Patient Time: Total time managing care of this patient today ____ minutes. Procedures Date of Service Date of Service: 02/20/23
--- NOTE | 2023-02-20 14:24 | P.PNIM_ITS ---
Subjective Subjective Date of Service: 02/20/23 Interval History: seen and examined this morning follow up for atrial flutter Reporting headache Denies chest pain, palpitations, dizziness, shortness of breath Review of Systems Review of Systems: Yes all other systems are reviewed and are negative Constitutional Constitutional: Denies chills and Denies fever(s) ENT Ears, Nose, Mouth, and Throat: Denies dizziness Cardiovascular Cardiovascular: Denies chest pain, Denies palpitations and Denies dyspnea Respiratory Respiratory: Denies cough and Denies dyspnea Gastrointestinal Gastrointestinal: Denies abdominal pain Neurologic Neurologic: Denies dizziness Endocrine Endocrine: Denies palpitations Physical Exam Vital Signs: Vital Signs: Last Vital Signs Temp 97.1 F 02/20/23 11:54 Pulse 83 02/20/23 11:54 Resp 20 02/20/23 11:54 BP 101/60 02/20/23 11:54 Pulse Ox 97 02/20/23 11:54 O2 Del Method Room Air 02/20/23 11:54 O2 Flow Rate 97 02/19/23 21:56 BMI result Body Mass Index 41.9 Const: General: no acute distress, alert and awake Nutritional Appearance: obese Orientation/consciousness: patient oriented x3 Resp: Effort & Inspection: normal respiratory effort, able to speak in complete sentences, no respiratory distress and no use of accessory muscles Cardio: Rate: regular rate Heart sounds: S1 normal heart sound present and S2 normal heart sound present GI: Inspection: No distended Palpation (GI): Soft to palpation and n ontender Neuro: General: patient oriented x3, moves all extremities and CN's II-XI intact bilaterally Extrem: General: Yes no pedal edema Objective Data Active Medications Acetaminophen (Acetaminophen 325 Mg Tablet) 650 mg PO Q6H PRN PRN Reason: Pain, Mild (Pain Scale 1-3) Last Admin: 02/20/23 02:32 Dose: 650 mg Documented By: USMAN Albuterol Sulfate (Albuterol Sulfate 90 Mcg 8 Gm Inhaler) 2 puff INHALE Q4H PRN PRN Reason: Respiratory Distress Amiodarone HCl (Amiodarone Hcl 200 Mg Tablet) 200 mg PO DAILY [facility] Last Admin: 02/20/23 08:14 Dose: 200 mg Documented By: CHRIS Atorvastatin Calcium (Atorvastatin Calcium 40 Mg Tablet) 40 mg PO DAILY [facility] Last Admin: 02/20/23 08:15 Dose: 40 mg Documented By: CHRIS Clonidine HCl (Clonidine Hcl 0.1 Mg Tablet) 0.1 mg PO BID PRN; Protocol PRN Reason: Anxiety Cyclobenzaprine HCl (Cyclobenzaprine Hcl 5 Mg Tablet) 5 mg PO BEDTIME PRN PRN Reason: muscle spasm Diltiazem HCl (Diltiazem Hcl Cd 180 Mg Cap.Er.24h) 180 mg PO DAILY [facility]; Protocol Last Admin: 02/20/23 10:37 Dose: 180 mg Documented By: CHRIS Docusate Sodium (Docusate Sodium 100 Mg Capsule) 100 mg PO DAILY PRN PRN Reason: Constipation Duloxetine HCl (Duloxetine Hcl 20 Mg Capsule.) 40 mg PO DAILY [facility] Last Admin: 02/20/23 08:14 Dose: 40 mg Documented By: CHRIS Duloxetine HCl (Duloxetine Hcl 60 Mg Capsule.) 60 mg PO DAILY [facility] Last Admin: 02/20/23 08:14 Dose: 60 mg Documented By: CHRIS Fluticasone/Vilanterol (Fluticasone/Vilanterol 200/25 Blst.W.Dev) 1 puff INHALE RDAILY [facility] Last Admin: 02/20/23 14:06 Dose: Not Given Documented By: CHRIS Non-Admin Reason: Med Not Available Furosemide (Furosemide 40 Mg Tablet) 40 mg PO DAILY [facility]; Protocol Last Admin: 02/20/23 08:15 Dose: 40 mg Documented By: CHRIS Diltiazem HCl 125 mg/ Sodium (Chloride) 125 mls @ 0 mls/hr IVCONT .Q0M [facility]; Protocol Last Titration: 02/20/23 12:38 Dose: 0 mg/hr, 0 mls/hr Documented By: CHRIS Ipratropium [place] (Ipratropium [place] Zia 0.03 % 30 Ml [place]) 2 spray NOSTRIL-B BID PRN PRN Reason: Allergy Symptoms Lamotrigine (Lamotrigine 100 Mg Tablet) 200 mg PO BEDTIME [facility] Last Admin: 02/19/23 21:33 Dose: 200 mg Documented By: SERRANX Lamotrigine (Lamotrigine 25 Mg Tablet) 50 mg PO BEDTIME [facility] Last Admin: 02/19/23 21:32 Dose: 50 mg Documented By: GRANT Loratadine (Loratadine 10 Mg Tablet) 10 mg PO DAILY [facility] Last Admin: 02/20/23 08:15 Dose: 10 mg Documented By: CHRIS Metoprolol Succinate (Metoprolol Succinate Er 50 Mg Tab.Er.24h) 50 mg PO BID [facility]; Protocol Last Admin: 02/20/23 08:15 Dose: 50 mg Documented By: CHRIS Nicotine (Nicotine 21 Mg Patch.Td24) 21 mg TRANSDERMA DAILY PRN PRN Reason: Nicotine Cravings Nitrofurantoin Macrocrystals (Nitrofurantoin Monohyd/M-Cryst 100 Mg Capsule) 100 mg PO BID [facility] Last Admin: 02/20/23 08:14 Dose: 100 mg Documented By: CHRIS Ondansetron HCl (Ondansetron Hcl 4 Mg/2 Ml Vial) 4 mg IVPUSH Q8H PRN PRN Reason: Nausea and Vomiting Penicillin V Potassium (Penicillin V Potassium 250 Mg Tablet) 250 mg PO BID [facility] Last Admin: 02/20/23 08:15 Dose: 250 mg Documented By: CHRIS Rivaroxaban (Rivaroxaban 20 Mg Tablet) 20 mg PO DAILY [facility] Last Admin: 02/20/23 08:15 Dose: 20 mg Documented By: CHRIS Ropinirole HCl (Ropinirole Hcl 0.5 Mg Tablet) 0.5 mg PO TID [facility] Last Admin: 02/20/23 08:14 Dose: 0.5 mg Documented By: CHRIS Sodium Chloride (0.9 % Sodium Chloride Flush 3 Ml Syringe) 3 ml IVFLUSH QSHIFT [facility] Last Admin: 02/20/23 08:17 Dose: Not Given Documented By: CHRIS Non-Admin Reason: IV Running Labs 02/19/23 18:23 02/20/23 07:47 Labs: Laboratory Results - last 24 hr 02/19/23 02/19/23 02/19/23 18:23 18: 18:23 MCV 90.3 MCH 28.3 MCHC 31.3 RDW 15.7 Plt Count 202 MPV 10.6 Immature Gran % (Auto) 0.2 Neut % (Auto) 51.8 Lymph % (Auto) 36.5 [place] % (Auto) 7.9 Eos % (Auto) 3.0 Baso % (Auto) 0.6 Lymph # (Auto) 3.0 [place] # (Auto) 0.6 Eos # (Auto) 0.2 Baso # (Auto) 0.1 Abs Immat Gran (auto) 0.02 Absolute Neuts (auto) 4.2 Absolute Nucleated RBC 0.000 Nucleated RBC % (auto) 0.0 PT 21.8 H INR 1.8 H APTT 41.1 H Anion Gap 19 Estim Creat Clear Calc 79.1 Estimated GFR > 60 POC Glucose Random Glucose 195 H Calcium 10.1 D Magnesium 2.0 Total Bilirubin AST ALT Alkaline Phosphatase B-Natriuretic Peptide Total Protein Albumin 02/19/23 02/20/23 02/20/23 18:23 07:47 07:58 MCV MCH MCHC RDW Plt Count MPV Immature Gran % (Auto) Neut % (Auto) Lymph % (Auto) [place] % (Auto) Eos % (Auto) Baso % (Auto) Lymph # (Auto) [place] # (Auto) Eos # (Auto) Baso # (Auto) Abs Immat Gran (auto) Absolute Neuts (auto) Absolute Nucleated RBC Nucleated RBC % (auto) PT INR APTT Anion Gap 18 Estim Creat Clear Calc 84.6 Estimated GFR > 60 POC Glucose 187 H Random Glucose 188 H Calcium 9.6 Magnesium Total Bilirubin 0.4 AST 14 ALT 20 Alkaline Phosphatase 68 B-Natriuretic Peptide 239 H Total Protein 7.0 Albumin 3.5 Assessment and Plan (1) Atrial flutter with rapid ventricular response: Status: Acute Plan This is a 57-year-old female with recent admission for atrial flutter status post cardioversion presented to the emergency department with fluctuating heart rate found to be in atrial flutter with rapid ventricular response admitted for the same A flutter with RVR s/p cardioversion on previous admission started on cardizem drip, HR controlled, will transition to po Cardizem Continue metoprolol, amiodarone Continue Xaralto for anticoagulation Cardiology following chronic HFpEF Not in exacerbation continue home Lasix history of COPD continue home inhalers Mood Continue home medications TAMI Continue CPAP Restless leg syndrome Continue Requip HLD Continue statin DVT prophylaxis: [place] Attending-Dr. Evans Patient's need for management of a flutter with RVR patient require minimum 2 nights inpatient hospital stay for further management and monitoring Time Spent With Patient Time: Total time managing care of this patient today ____ minutes. Quality Stroke Does the patient have a stroke diagnosis?: No VTE Prior VTE?: No VTE Risk Level:: Medical - moderate - high VTE Device Contraindication: Treatment Not Indicated VTE Drug Contraindication: N/A - Med Ordered
[2023-02-20] MEDS: Cyclobenzaprine HCl 5 MG TABLET PO (20:09)
[2023-02-20] MEDS: lamoTRIgine 100 MG TABLET 200 MG PO (20:10)
[2023-02-20] MEDS: lamoTRIgine 25 MG TABLET 50 MG PO (20:10)
[2023-02-21] MEDS: Acetaminophen 325 MG TABLET 650 MG PO ×3 (00:17→20:14)
[2023-02-21] MEDS: oxyCODONE HCl Immed Release 5 MG TABLET PO ×2 (00:17→14:38)
[2023-02-21 07:43] VITALS: BP 140/79; PULSE 107; RESP 20; TEMP 36.3; O2SAT 98
[2023-02-21] MEDS: Fluticasone/Vilanterol 200/25 BLST.W.DEV 1 PUFF INHALE (08:07)
[2023-02-21 08:09] VITALS: PULSE 74; RESP 18; O2SAT 95
[2023-02-21 08:25] LABS: Hematocrit 49.2 % (37.0-47.0); Hemoglobin 15.3 g/dl (12.0-16.0); Mean Corpuscular HGB Conc 31.1 g/dl (31.0-35.0); Mean Corpuscular Volume 90.1 fL (80.0-98.0); Mean Platelet Volume 10.9 fL (9.4-12.3); Platelet Count 188 X10*3/uL (160-400); Red Blood Count 5.46 X10*6/uL (4.20-5.50); Red Cell Distribution Width 15.8 % (11.0-16.0)
[2023-02-21 08:39] LABS: Anion Gap 14 (12-20); Blood Urea Nitrogen 12 mg/dL (9-16); Calcium 9.6 mg/dL (8.4-10.2); Carbon Dioxide 29 mmol/L (22-29); Chloride 102 mmol/L (96-108); Creatinine Clr Calc Pharmacy 85.6; Estimated Glomerular Filt Rate > 60; Glucose Random 148 mg/dL (60-115); Potassium 4.2 mmol/L (3.3-5.1); Sodium 141 mmol/L (135-145)
[2023-02-21] MEDS: Nitrofurantoin Monohyd/M-Cryst 100 MG CAPSULE PO ×2 (09:23→20:13)
[2023-02-21] MEDS: rOPINIRole HCL 0.5 MG TABLET PO ×3 (09:23→20:13)
[2023-02-21] MEDS: Furosemide 40 MG TABLET PO (09:23)
[2023-02-21] MEDS: Atorvastatin Calcium 40 MG TABLET PO (09:23)
[2023-02-21] MEDS: DULoxetine HCl 20 MG CAPSULE.DR 40 MG PO (09:23)
[2023-02-21] MEDS: Loratadine 10 MG TABLET PO (09:24)
[2023-02-21] MEDS: Amiodarone HCL 200 MG TABLET PO (09:24)
[2023-02-21] MEDS: dilTIAZem HCL CD 180 MG CAP.ER.24H PO (09:24)
[2023-02-21] MEDS: Rivaroxaban 20 MG TABLET PO (09:24)
[2023-02-21] MEDS: Metoprolol Succinate ER 50 MG TAB.ER.24H PO ×2 (09:24→20:13)
[2023-02-21] MEDS: 0.9 % Sodium Chloride Flush 3 ML SYRINGE IVFLUSH ×3 (09:24→20:12)
[2023-02-21] MEDS: Cyclobenzaprine HCl 5 MG TABLET PO ×2 (09:24→20:19)
[2023-02-21] MEDS: Penicillin V Potassium 250 MG TABLET PO ×2 (09:24→20:13)
[2023-02-21] MEDS: DULoxetine HCl 60 MG CAPSULE.DR PO (09:24)
[2023-02-21 11:08] VITALS: BP 130/69; PULSE 105; RESP 16; TEMP 36; O2SAT 96
--- NOTE | 2023-02-21 13:14 | P.PNIM_ITS ---
Subjective Subjective Date of Service: 02/21/23 Interval History: seen and examined this morning follow up for aflutter HR elevated this am, asymptomatic bp soft overnight JEFFRIES resolved Review of Systems Review of Systems: Yes all other systems are reviewed and are negative Constitutional Constitutional: Denies chills and Denies fever(s) ENT Ears, Nose, Mouth, and Throat: Denies dizziness Cardiovascular Cardiovascular: Denies chest pain, Denies palpitations and Denies dyspnea Respiratory Respiratory: Denies cough and Denies dyspnea Gastrointestinal Gastrointestinal: Denies abdominal pain Neurologic Neurologic: Denies dizziness Endocrine Endocrine: Denies palpitations Physical Exam Vital Signs: Vital Signs: Last Vital Signs Temp 96.8 F 02/21/23 11:08 Pulse 105 H 02/21/23 11:08 Resp 16 02/21/23 11:08 BP 130/69 02/21/23 11:08 Pulse Ox 96 02/21/23 11:08 O2 Del Method Room Air 02/21/23 11:08 O2 Flow Rate 97 02/19/23 21:56 BMI result Body Mass Index 41.9 Const: General: cooperative, comfortable, no acute distress, alert and awake Nutritional Appearance: obese Orientation/consciousness: patient oriented x3 Resp: Effort & Inspection: normal respiratory effort, able to speak in complete sentences, no respiratory distress and no use of accessory muscles Cardio: Rate: regular rate Heart sounds: S1 normal heart sound present, S2 normal heart sound present and no murmurs GI: Inspection: No distended Palpation (GI): Soft to palpation and nontender Neuro: General: patient oriented x3, moves all extremities and CN's II-XI intact bilaterally Extrem: Other: b/l venous stasis skin changes General: Yes no pedal edema Objective Data Active Medications Acetaminophen (Acetaminophen 325 Mg Tablet) 650 mg PO Q6H PRN PRN Reason: Pain, Mild (Pain Scale 1-3) Last Admin: 02/21/23 00:17 Dose: 650 mg Documented By: RHEA Albuterol Sulfate (Albuterol Sulfate 90 Mcg 8 Gm Inhaler) 2 puff INHALE Q4H PRN PRN Reason: Respiratory Distress Amiodarone HCl (Amiodarone Hcl 200 Mg Tablet) 200 mg PO DAILY [facility] Last Admin: 02/21/23 09:24 Dose: 200 mg Documented By: YUE Atorvastatin Calcium (Atorvastatin Calcium 40 Mg Tablet) 40 mg PO DAILY [facility] Last Admin: 02/21/23 09:23 Dose: 40 mg Documented By: YUE Clonidine HCl (Clonidine Hcl 0.1 Mg Tablet) 0.1 mg PO BID PRN; Protocol PRN Reason: Anxiety Cyclobenzaprine HCl (Cyclobenzaprine Hcl 5 Mg Tablet) 5 mg PO BEDTIME PRN PRN Reason: muscle spasm Last Admin: 02/21/23 09:24 Dose: 5 mg Documented By: YUE Diltiazem HCl (Diltiazem Hcl Cd 180 Mg Cap.Er.24h) 180 mg PO DAILY [facility]; Protocol Last Admin: 02/21/23 09:24 Dose: 180 mg Documented By: YUE Docusate Sodium (Docusate Sodium 100 Mg Capsule) 100 mg PO DAILY PRN PRN Reason: Constipation Duloxetine HCl (Duloxetine Hcl 20 Mg Capsule.Dr) 40 mg PO DAILY [facility] Last Admin: 02/21/23 09:23 Dose: 40 mg Documented By: YUE Duloxetine HCl (Duloxetine Hcl 60 Mg Capsule.Dr) 60 mg PO DAILY [facility] Last Admin: 02/21/23 09:24 Dose: 60 mg Documented By: YUE Fluticasone/Vilanterol (Fluticasone/Vilanterol 200/25 Blst.W.Dev) 1 puff INHALE RDAILY [facility] Last Admin: 02/21/23 08:07 Dose: 1 puff Documented By: JUAQUIN Furosemide (Furosemide 40 Mg Tablet) 40 mg PO DAILY [facility]; Protocol Last Admin: 02/21/23 09:23 Dose: 40 mg Documented By: YUE Ipratropium [place] (Ipratropium [place] Zia 0.03 % 30 Ml Basye) 2 spray NOSTRIL-B BID PRN PRN Reason: Allergy Symptoms Lamotrigine (Lamotrigine 100 Mg Tablet) 200 mg PO BEDTIME [facility] Last Admin: 02/20/23 20:10 Dose: 200 mg Documented By: RHEA Lamotrigine (Lamotrigine 25 Mg Tablet) 50 mg PO BEDTIME [facility] Last Admin: 02/20/23 20:10 Dose: 50 mg Documented By: RHEA Loratadine (Loratadine 10 Mg Tablet) 10 mg PO DAILY [facility] Last Admin: 02/21/23 09:24 Dose: 10 mg Documented By: YUE Metoprolol Succinate (Metoprolol Succinate Er 50 Mg Tab.Er.24h) 50 mg PO BID [facility]; Protocol Last Admin: 02/21/23 09:24 Dose: 50 mg Documented By: YUE Nicotine (Nicotine 21 Mg Patch.Td24) 21 mg TRANSDERMA DAILY PRN PRN Reason: Nicotine Cravings Nitrofurantoin Macrocrystals (Nitrofurantoin Monohyd/M-Cryst 100 Mg Capsule) 100 mg PO BID [facility] Last Admin: 02/21/23 09:23 Dose: 100 mg Documented By: YUE Ondansetron HCl (Ondansetron Hcl 4 Mg/2 Ml Vial) 4 mg IVPUSH Q8H PRN PRN Reason: Nausea and Vomiting Penicillin V Potassium (Penicillin V Potassium 250 Mg Tablet) 250 mg PO BID [facility] Last Admin: 02/21/23 09:24 Dose: 250 mg Documented By: YUE Rivaroxaban (Rivaroxaban 20 Mg Tablet) 20 mg PO DAILY [facility] Last Admin: 02/21/23 09:24 Dose: 20 mg Documented By: YUE Ropinirole HCl (Ropinirole Hcl 0.5 Mg Tablet) 0.5 mg PO TID [facility] Last Admin: 02/21/23 09:23 Dose: 0.5 mg Documented By: YUE Sodium Chloride (0.9 % Sodium Chloride Flush 3 Ml Syringe) 3 ml IVFLUSH QSHIFT [facility] Last Admin: 02/21/23 09:24 Dose: 3 ml Documented By: YUE Labs 02/21/23 07:53 02/21/23 07:53 Labs: Laboratory Results - last 24 hr 02/21/23 02/21/23 07:53 07:53 MCV 90.1 MCH 28.0 MCHC 31.1 RDW 15.8 Plt Count 188 MPV 10.9 Absolute Nucleated RBC 0.000 Nucleated RBC % (auto) 0.0 Anion Gap 14 Estim Creat Clear Calc 85.6 Estimated GFR > 60 Random Glucose 148 H Calcium 9.6 Assessment and Plan (1) Atrial flutter with rapid ventricular response: Status: Acute Plan This is a 57-year-old female with recent admission for atrial flutter status post cardioversion presented to the emergency department with fluctuating heart rate found to be in atrial flutter with rapid ventricular response admitted for the same A flutter with RVR HR up to 120 this am s/p cardioversion on recent admission started on cardizem drip initially, transitioned to po Cardizem Continue metoprolol, amiodarone Continue Xaralto for anticoagulation Cardiology following chronic HFpEF Not in exacerbation continue home Lasix history of COPD continue home inhalers Mood Continue home medications TAMI Continue CPAP Restless leg syndrome Continue Requip HLD Continue statin Morbid obesity BMI 41.9 weight loss encouraged DVT prophylaxis: [place] Attending-Dr. Pina Requires ongoing inpatient stay for HR/BP monitoring Time Spent With Patient Time: Total time managing care of this patient today ____ minutes. Quality Stroke Does the patient have a stroke diagnosis?: No VTE Prior VTE?: No VTE Risk Level:: Medical - moderate - high VTE Device Contraindication: Treatment Not Indicated VTE Drug Contraindication: N/A - Med Ordered
[2023-02-21 15:25] VITALS: BP 102/58; PULSE 92; RESP 18; TEMP 36.7; O2SAT 97
[2023-02-21 19:43] VITALS: BP 126/92; PULSE 72; RESP 18; TEMP 36.1; O2SAT 94
[2023-02-21] MEDS: lamoTRIgine 25 MG TABLET 50 MG PO (20:13)
[2023-02-21] MEDS: lamoTRIgine 100 MG TABLET 200 MG PO (20:13)
[2023-02-21 23:38] VITALS: BP 111/74; PULSE 84; RESP 20; TEMP 36.2; O2SAT 94
[2023-02-22 03:29] VITALS: BP 140/89; PULSE 98; RESP 20; TEMP 36.5; O2SAT 91
[2023-02-22] MEDS: oxyCODONE HCl Immed Release 5 MG TABLET PO (05:16)
[2023-02-22] MEDS: Acetaminophen 325 MG TABLET 650 MG PO (05:17)
[2023-02-22 07:26] VITALS: BP 100/64; PULSE 61; RESP 16; TEMP 36.7; O2SAT 94
[2023-02-22 08:00] VITALS: BMI 41.5
[2023-02-22] MEDS: DULoxetine HCl 20 MG CAPSULE.DR 40 MG PO (08:07)
[2023-02-22] MEDS: Nitrofurantoin Monohyd/M-Cryst 100 MG CAPSULE PO (08:08)
[2023-02-22] MEDS: Metoprolol Succinate ER 50 MG TAB.ER.24H PO (08:08)
[2023-02-22] MEDS: 0.9 % Sodium Chloride Flush 3 ML SYRINGE IVFLUSH (08:08)
[2023-02-22] MEDS: Rivaroxaban 20 MG TABLET PO (08:08)
[2023-02-22] MEDS: Loratadine 10 MG TABLET PO (08:08)
[2023-02-22] MEDS: dilTIAZem HCL CD 180 MG CAP.ER.24H PO (08:08)
[2023-02-22] MEDS: DULoxetine HCl 60 MG CAPSULE.DR PO (08:08)
[2023-02-22] MEDS: Amiodarone HCL 200 MG TABLET PO (08:08)
[2023-02-22] MEDS: Atorvastatin Calcium 40 MG TABLET PO (08:08)
[2023-02-22] MEDS: Penicillin V Potassium 250 MG TABLET PO (08:08)
[2023-02-22] MEDS: rOPINIRole HCL 0.5 MG TABLET PO (08:08)
[2023-02-22] MEDS: Furosemide 40 MG TABLET PO (08:08)
--- NOTE | 2023-02-22 08:48 | PM.DS ---
DS: Providers Provider Date of Service: 02/22/23 Date of admission: 02/19/23 20:51 Primary care physician: Kyle Ahumada DO Consults: 02/20/23 10:15 Consult to Cardiology Routine Consulting Provider: [facility] Reason for consultation: recurrence of rapid aflutter Has provider been notified: No DS: Diagnosis Discharge Diagnosis (1) Atrial flutter with rapid ventricular response: Status: Acute DS: Summary Hospital Course Hospital Course: HPI: 57-year-old female past medical history of a flutter, COPD, HLD, HTN, chronic back pain, who comes into the hospital stating that she has been feeling unwell for the past 2 days.? Of note patient was discharged from the hospital on 02/10 after being managed for a flutter with rapid ventricular response as well as COPD exacerbation. ?Patient reports that she checked her blood pressure and he was fluctuating up and down, she also checked her heart rate which was also fluctuating up and down, she states that she has hot flashes that she is going through menopause and has been exacerbated when the past 2 days.? She otherwise denies any chest pain, no shortness of breath, no dizziness, she has a chronic headache that has been constant since discharge from the hospital.? She denies any cough, no shortness of breath, no sputum production, no abdominal pain nausea or vomiting, no diarrhea constipation, no urinary symptoms and no lower extremity edema EKG shows a flutter with 2-1 AV conduction This was discussed with Cardiology, patient will be readmitted for further management Hospital course: patient was initiated on Cardizem drip on admission. Transitioned to p.o. Cardizem prior to discharge. Metoprolol and amiodarone were continued. Xarelto was continued for anticoagulation. Heart rate controlled prior to discharge. Cardiology was consulted during hospital course. Noted plans for outpatient ablation chronic HFpEF Not in exacerbation continue home Lasix history of COPD continue home inhalers Mood Continue home medications TAMI Continue CPAP Restless leg syndrome Continue Requip HLD Continue statin Morbid obesity BMI 41.9 weight loss encouraged Status at Discharge Functional status at discharge: independent ambulation Overall status at discharge: patient is back to baseline Time Spent with Patient Time attestation: Total time managing care of this patient today ____ minutes. Discharge coordination time: Less than 30 minutes Quality: Safe Use of Opioids Does Pt have an Active Cancer Diagnosis on the Problem List?: No Quality: Stroke Does the patient have a stroke diagnosis?: No Physical Exam Vital Signs: Vital Signs: Last Vital Signs Temp 98.1 F 02/22/23 07:26 Pulse 61 02/22/23 07:26 Resp 16 02/22/23 07:26 BP 100/64 02/22/23 07:26 Pulse Ox 94 02/22/23 07:26 O2 Del Method Room Air 02/22/23 07:26 O2 Flow Rate 97 02/19/23 21:56 BMI result Body Mass Index 41.5 Middle-aged female lying in bed in no distress Neck supple, no JVD Irregulary irregular, S1-S2 heard Regular breath sounds bilaterally, no wheezing or crackles appreciated Abdomen soft nontender, no guarding, no rigidity Patient is awake, alert and oriented to self, place, time and person ; no focal motor deficit Psych: Normal mood DS: Data Data Completed and Pending Completed studies during hospitalization [Text1]: Procedures Assistance with Respiratory Ventilation, Less than 24 Consecutive Hours, Continuous Positive Airway Pressure (02/06/23) Advent of Cardiac Rhythm, Single (02/06/23) Ultrasonography of Heart with Aorta, Transesophageal (02/06/23) Discharge Plan Discharge Anticipated Discharge Date/Time: 02/22/23 11:44 Patient Disposition: Hospice - Home Discharge Diagnosis: Afib with RVR Referrals: Kyle Ahumada DO [Primary Care Provider] - 1 Week Discharge Medications: New diltiazem HCl [Cardizem CD] 180 mg Capsule,Extended Release 24hr 180 mg PO DAILY Qty: 14 0RF Protocol: Hold for SBP/HR < HOLD for SBP < : 90 HOLD for HR < : 60 amiodarone 200 mg Tablet 200 mg PO DAILY Qty: 14 0RF Continued metoprolol succinate 50 mg tablet extended release 24 hr 50 mg PO BID 90 Days Qty: 180 3RF Protocol: Hold for SBP/HR < HOLD for SBP < : 90 HOLD for HR < : 60 Rx Instructions: Replaces prior dose of 75 mg twice daily penicillin V potassium 250 mg Tablet 250 mg PO BID albuterol sulfate 90 mcg/actuation Hfa Aerosol Inhaler 2 puff INHALATION Q4-6H PRN (Reason: Respiratory Distress) loratadine 10 mg Tablet 10 mg PO DAILY rosuvastatin 10 mg Tablet 10 mg PO DAILY duloxetine 60 mg Capsule,Delayed Release(Dr/Ec) 60 mg PO DAILY Rx Instructions: TAKE WITH 40MG duloxetine 40 mg Capsule, Delayed Rel Sprinkle 40 mg PO DAILY Rx Instructions: TAKE WITH 60MG nitrofurantoin monohyd/m-cryst 100 mg capsule 100 mg PO BID lamotrigine 200 mg tablet 200 mg PO BEDTIME Rx Instructions: TAKE WITH 50MG lamotrigine 25 mg tablet 50 mg PO BEDTIME Rx Instructions: TAKE WITH 200MG clonidine HCl 0.1 mg tablet 0.1 mg PO BID PRN (Reason: Anxiety) ipratropium bromide 21 mcg (0.03 %) spray,non-aerosol 2 spray intranasal BID PRN (Reason: Allergy Symptoms) cyclobenzaprine 5 mg tablet 5 mg PO BEDTIME PRN (Reason: muscle spasm) Xarelto 20 mg Tablet 20 mg PO DAILY Qty: 30 0RF Rx Instructions: Replaces warfarin furosemide 40 mg tablet 40 mg PO DAILY Qty: 30 0RF nicotine 21 mg/24 hr patch 24 hour 21 mg transdermal DAILY PRN (Reason: Nicotine Cravings) ropinirole 0.5 mg tablet 0.5 mg PO TID budesonide-formoterol [Symbicort] 80-4.5 mcg/actuation HFA aerosol inhaler 2 puff inhalation BID Discontinued amiodarone 200 mg Tablet See Rx Instructions .ROUTE .COMPLEX Qty: 60 0RF Rx Instructions: 400 mg [2 tabs] twice daily for 10 days, Start on 02/19/23 - 200 mg [1 tab] once daily Discharge Orders: Discharge Order (Routine); Ordered 02/22/23 Ordered By: Yong Welch Diet: Low salt diet Activity on Discharge: As tolerated Stand Alone Forms: Patient Portal Discharge page Care Plan Goals: follow-up with PCP and Cardiology within 1 week Health Concerns: AFib with RVR Plan of Treatment: will need outpatient ablation Assessment: as above
--- NOTE | 2023-02-22 09:27 | MHC.CM.PN ---
IMM 02/20/23 Discharge to home today with resumption of [facility] services that are already in place. [facility] caregivers was notified via careport that the patient is discharged today. DC Summary and Packet have been sent to the agency. Family will provide transport home.
== END 2023-02-22 11:37 | disposition home health service (06) | DRG 309 ==
LOC: HO.ED 20:43 → HO.EDOVER 20:58 → HO.IMC 02-20 00:08
PROVIDERS: Physician Assistant Medical; Admitting Provider Internal Medicine; Emergency Provider Internal Medicine; PCP Family Medicine; Visit Provider Student in an Organized Health Care Education/Training Program
DX: I48.92 Unspecified atrial flutter (principal); I50.32 Chronic diastolic (congestive) heart failure; Z68.41 Body mass index [BMI] 40.0-44.9, adult; I11.0 Hypertensive heart disease with heart failure; J44.9 Chronic obstructive pulmonary disease, unspecified; F17.210 Nicotine dependence, cigarettes, uncomplicated; E66.01 Morbid (severe) obesity due to excess calories; G47.33 Obstructive sleep apnea (adult) (pediatric); G25.81 Restless legs syndrome; F39 Unspecified mood [affective] disorder; E78.5 Hyperlipidemia, unspecified; M54.9 Dorsalgia, unspecified; G89.29 Other chronic pain; Z71.6 Tobacco abuse counseling; Z79.01 Long term (current) use of anticoagulants; Z79.899 Other long term (current) drug therapy
CPT/HCPCS: 36415; 80048; 80053; 82947; 83735; 83880; 85025; 85027; 85610; 85730; 93005; 94640; 94660; 99285

== ENCOUNTER → 2023-02-19 18:04 | Outpatient (BNV) | payer OTHER, SELFPAY | PROVIDERS: Admitting Provider Internal Medicine; Emergency Provider Internal Medicine; PCP Family Medicine; Visit Provider Internal Medicine Cardiovascular Disease | DX: R00.2 Palpitations (principal) | CPT/HCPCS: 93010 ==

== ENCOUNTER → 2023-02-19 20:51 | Outpatient (BNV) | payer OTHER, SELFPAY | PROVIDERS: Admitting Provider Internal Medicine; Emergency Provider Internal Medicine; PCP Family Medicine; Visit Provider Internal Medicine | DX: I48.92 Unspecified atrial flutter (principal) | CPT/HCPCS: 99223; 99232; 99238 ==

== ENCOUNTER → 2023-02-19 20:51 | Outpatient (BNV) | payer OTHER, SELFPAY | PROVIDERS: Admitting Provider Internal Medicine; Emergency Provider Internal Medicine; PCP Family Medicine; Visit Provider Internal Medicine Cardiovascular Disease | DX: I48.92 Unspecified atrial flutter (principal) | CPT/HCPCS: 99222 ==

== ENCOUNTER 2023-02-27 17:34 | Emergency (ER) | payer OTHER, SELFPAY ==
--- NOTE | 2023-02-27 17:36 | ECG_ITS ---
Test Reason : TACHY Blood Pressure : / mmHG Vent. Rate : 122 BPM Atrial Rate : 122 BPM P-R Int : 100 ms QRS Dur : 154 ms QT Int : 434 ms P-R-T Axes : 083 -06 234 degrees QTc Int : 618 ms Atrial flutter with rapid ventricular rate Possible Left atrial enlargement Right bundle branch block Abnormal ECG When compared with ECG of 19-FEB-2023 18:14, No significant changes seen Referred By: Leyda Zambrano Electronically Signed By:TERESO NICHOLAS
[2023-02-27 17:37] VITALS: BP 117/85; PULSE 125; RESP 20; TEMP 36.7; O2SAT 95; BMI 42.0
--- NOTE | 2023-02-27 17:37 | ED.GENADULT ---
HPI - General Adult General Chief complaint: Arrhythmia/Palpitations Stated complaint: heart rate too fast/lower back pain Time Seen by Provider: 02/27/23 19:13 Source: patient and old records reviewed Mode of arrival: ambulatory Limitations: no limitations History of Present Illness HPI narrative: 57 yo female with hx of aflutter was on coumadin but INR not therapeutic at times now on xarelto x a few days, HTN, COPD, HLD, chronic back pain who was just admitted for flutter - started on dilt, is on amiodarone and metoprolol, plan was for outpatient cardioversion. Just had recent cardioversion 02/09/23 from admission and went back into aflutter on last admission. On DC she had good rate control but was still in flutter she comes back tonight without symptoms no CP/SOB or dizziness but HR has been 120s complaint: tachycardia Onset (ago): day(s) (2) Location: chest Severity: mild Pain Consistency: intermittent Relieving factors: none Exacerbating factors: none Associated symptoms: denies other symptoms Treatments prior to arrival: none Related Data Home Medications Medication Instructions Recorded Confirmed albuterol sulfate 90 mcg/actuation 2 puff inhalation Q4-6H PRN 11/24/21 02/19/23 aerosol inhaler Respiratory Distress duloxetine 40 mg capsule,delayed 40 mg PO DAILY 11/24/21 02/19/23 release sprinkle duloxetine 60 mg capsule,delayed 60 mg PO DAILY 11/24/21 02/19/23 release loratadine 10 mg tablet 10 mg PO DAILY 11/24/21 02/19/23 penicillin V potassium 250 mg 250 mg PO BID 11/24/21 02/19/23 tablet rosuvastatin 10 mg tablet 10 mg PO DAILY 11/24/21 02/19/23 nitrofurantoin 100 mg PO BID 12/31/21 02/19/23 monohydrate/macrocrystals 100 mg capsule ropinirole 0.5 mg tablet 0.5 mg PO TID 05/01/22 02/19/23 budesonide-formoterol HFA 80 2 puff inhalation BID 09/29/22 02/19/23 mcg-4.5 mcg/actuation aerosol inhaler (Symbicort) clonidine HCl 0.1 mg tablet 0.1 mg PO BID PRN Anxiety 02/05/23 02/19/23 cyclobenzaprine 5 mg tablet 5 mg PO BEDTIME PRN muscle spasm 02/05/23 02/19/23 ipratropium bromide 21 mcg (0.03 2 spray intranasal BID PRN Allergy 02/05/23 02/19/23 %) nasal spray Symptoms lamotrigine 200 mg tablet 200 mg PO BEDTIME 02/05/23 02/19/23 lamotrigine 25 mg tablet 50 mg PO BEDTIME 02/05/23 02/19/23 nicotine 21 mg/24 hr daily 21 mg transdermal DAILY PRN 02/19/23 02/19/23 transdermal patch Nicotine Cravings Previous Rx's Medication Instructions Recorded furosemide 40 mg tablet 40 mg PO DAILY #30 tabs 02/10/23 rivaroxaban 20 mg tablet (Xarelto) 20 mg PO DAILY #30 tabs 02/10/23 metoprolol succinate 50 mg 50 mg PO BID 90 days #180 tabs 02/17/23 tablet,extended release 24 hr amiodarone 200 mg tablet 200 mg PO DAILY #14 tabs 02/22/23 diltiazem HCl 180 mg 180 mg PO DAILY #14 caps 02/22/23 capsule,extended release 24 hr (Cardizem CD) diltiazem HCl 240 mg 240 mg PO DAILY #30 caps 02/27/23 capsule,extended release 24 hr (Cardizem CD) Allergies Allergy/AdvReac Type Severity Reaction Status Date / Time adhesive Allergy Rash Verified 09/29/22 14:58 Review of Systems Review of Systems: Constitutional : No Fever, No Chills ENT/Mouth : No sore throat, No Rhinorrhea, No Swallowing Difficulty Eyes: No Eye Pain, No Swelling, No Redness Cardiovascular : No Chest Pain, no SOB, No Orthopnea, no Edema, pos palpitations Respiratory : No Cough, No Sputum, No Wheezing, no dyspnea Gastrointestinal : No Nausea, No Vomiting, No Diarrhea, No abdominal Pain, No Hematochezia, No Melena Genitourinary : No Dysuria, No Urinary Frequency, No Hematuria Musculoskeletal : No joint pain, No Myalgias Skin : No Skin Lesions, No rash Neuro : No Weakness, No Numbness, No Dizziness, No Headache All other systems reviewed and are negative PMFSH Past Medical History Attestation statement: The following information was validated with the patient. Source: old records reviewed Medical History Arthritis COPD (chronic obstructive pulmonary disease) Diabetes Disc disorder of cervical region Disc disorder of lumbar region DVT of axillary vein, acute HLD (hyperlipidemia) HTN (hypertension) Scoliosis Surgical History Previous back surgery Status post knee replacement Family History Family History Father Stroke Other Diabetes Social History Social History Household Members: Family Household Members Other:: daughter Housing: Apartment Do you presently have visiting nurse or other home services: Yes Alcohol intake: never Patient Tobacco Use Status: Current everyday Tobacco user Tobacco use type: Cigarette Cigarette Packs Per Day: 1.5 Cigarettes Per Day: 20 Years Smoked: 40 +/- Smoked in Last 30 Days: Yes Second Hand Smoke Exposure: No Use of substances other than those prescribed or required for medical reasons: No Advance Directives: Yes Advance Directives on File: Yes Advance Directives Date on File: 11/24/21 Patient : No service: No Physical Exam ED Vital Signs: Vital Signs - 24 hr 02/27/23 17:37 02/27/23 19:28 02/27/23 19:30 Temperature 98.1 F 98 F Pulse Rate 125 H 120 H 121 H Respiratory Rate 20 18 20 Blood Pressure 117/85 121/72 107/72 Pulse Oximetry 95 98 100 Oxygen Delivery Method Room Air Room Air Room Air 02/27/23 19:45 02/27/23 20:04 Temperature 98.1 F Pulse Rate 106 H 91 Respiratory Rate 18 Blood Pressure 118/67 103/66 Pulse Oximetry 99 Oxygen Delivery Method Room Air BMI result Body Mass Index 42.0 Appearance: Alert. Oriented X3. No acute distress. Eyes: Pupils equal, round and reactive to light. ENT: Pharynx normal. Neck: Normal inspection. Neck supple. CVS: tachycardic heart rate and rhythm. Pulses normal. Respiratory: No respiratory distress. Breath sounds normal. Abdomen: Soft and nontender. Skin: Skin warm and dry. Normal skin color. Normal skin turgor. Extremities: No lower extremity edema. No calf ttp Neuro: Oriented X 3. No motor deficit. No sensory deficit. Course Course Course Narrative: This is a rapid medical exam: Additional HPI, ROS, PE not included below will be deferred to primary provider. Patient is a 57-year-old female with history of CHF, COPD, aflutter, HLD, HTN presenting to the emergency department with elevated HR, states she was told by her visiting nurse and a doctor over the phone that she needed to come to the ED for evaluation of her tachycardia. She denies palpitations. Denies chest pain or shortness of breath at rest, does endorse dyspnea on exertion. Denies recent fevers. Plan: EKG, labs Medications Administered Discontinued Medications Generic Name Dose Route Start Last Admin Trade Name Freq PRN Reason Stop Dose Admin Diltiazem HCl 15 mg 02/27/23 19:22 02/27/23 19:32 Diltiazem Hcl 50 Mg/10 Ml Vial IVPUSH 02/27/23 19:23 15 mg STAT STA Administration Oxycodone HCl 10 mg 02/27/23 19:22 02/27/23 19:33 Oxycodone Hcl Immed Release 5 Mg Tablet PO 02/27/23 19:23 10 mg ONCE ONE Administration Medical Decision Making Medical Decision Making MDM Narrative: 57 yo female with hx of aflutter was on coumadin but INR not therapeutic at times now on xarelto x a few days, HTN, COPD, HLD, chronic back pain here with aflutter but no symptoms and rate 120 - she has no signs of clinical CHF just had DANIELLE shows EF 60%. she reports compliance with her medications at this time will give dose of diltiazem and monitor she does not want to be admitted but she needs better rate control given lack of symptoms doubte PE or ACS will increase her diltiazem on DC and send home with precautions Differential Diagnosis Differential Diagnoses: The differential diagnosis associated with the presentation includes aflutter, noncompliance, CHF, doubt VTE given DOAC use, chronic aflutter, chronic back pain Admission/Observation Consideration of admission/observation: Escalation of care including admission/observation considered responded to IV diltiazem x 1 dose feels much better rate in 80s wants to go home will increase her dilt dose and 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 BNP lower than baseline 02/27/23 18:06 02/27/23 18:06 Labs: Lab Results 02/27/23 02/27/23 02/27/23 Range/Units 18:06 18:06 18:06 WBC 5.9 (4.8-10.8) X10*3/uL RBC 4.72 (4.20-5.50) X10*6/uL Hgb 13.6 (12.0-16.0) g/dl Hct 42.1 (37.0-47.0) % MCV 89.2 (80.0-98.0) fL MCH 28.8 (27.0-33.0) pg MCHC 32.3 (31.0-35.0) g/dl RDW 15.5 (11.0-16.0) % Plt Count 170 (160-400) X10*3/uL MPV 11.6 (9.4-12.3) fL Immature Gran % (Auto) 0.5 H (0.0-0.4) % Neut % (Auto) 67.7 (45-73) % Lymph % (Auto) 26.1 (20-40) % [place] % (Auto) 3.9 (2-11) % Eos % (Auto) 1.3 (0-4) % Baso % (Auto) 0.5 (0-2) % Lymph # (Auto) 1.6 (1.2-4.9) X10*3/uL [place] # (Auto) 0.2 (0.1-1.2) X10*3/uL Eos # (Auto) 0.1 (0.0-0.4) X10*3/uL Baso # (Auto) 0.0 (0.0-0.2) X10*3/uL Abs Immat Gran (auto) 0.03 (0.00-0.03) X10*3/uL Absolute Neuts (auto) 4.0 (2.0-8.3) x10*3/uL Absolute Nucleated RBC 0.000 (0.0-0.012) X10*3/uL Nucleated RBC % (auto) 0.0 (0.0-0.2) /100WBC PT (11.1-13.3) SEC INR (0.9-1.1) Sodium 139 (135-145) mmol/L Potassium 3.6 (3.3-5.1) mmol/L Chloride 103 (96-108) mmol/L Carbon Dioxide 24 (22-29) mmol/L Anion Gap 16 (12-20) BUN 11 (9-16) mg/dL Creatinine 0.79 (0.5-1.4) mg/dL Estim Creat Clear Calc 90.1 Estimated GFR > 60 Random Glucose 267 H (60-115) mg/dL Calcium 9.2 (8.4-10.2) mg/dL Total Bilirubin 0.4 (0.0-1.0) mg/dL AST 19 (5-31) U/L ALT 22 (0-31) U/L Alkaline Phosphatase 73 (39-117) U/L Troponin I High Sens < 2.7 D (<3.5-17.0) ng/L B-Natriuretic Peptide (<100) pg/mL Total Protein 7.4 (6.5-8.0) g/dL Albumin 3.9 (3.5-5.0) g/dL 02/27/23 02/27/23 Range/Units 18:06 18:06 WBC (4.8-10.8) X10*3/uL RBC (4.20-5.50) X10*6/uL Hgb (12.0-16.0) g/dl Hct (37.0-47.0) % MCV (80.0-98.0) fL MCH (27.0-33.0) pg MCHC (31.0-35.0) g/dl RDW (11.0-16.0) % Plt Count (160-400) X10*3/uL MPV (9.4-12.3) fL Immature Gran % (Auto) (0.0-0.4) % Neut % (Auto) (45-73) % Lymph % (Auto) (20-40) % [place] % (Auto) (2-11) % Eos % (Auto) (0-4) % Baso % (Auto) (0-2) % Lymph # (Auto) (1.2-4.9) X10*3/uL [place] # (Auto) (0.1-1.2) X10*3/uL Eos # (Auto) (0.0-0.4) X10*3/uL Baso # (Auto) (0.0-0.2) X10*3/uL Abs Immat Gran (auto) (0.00-0.03) X10*3/uL Absolute Neuts (auto) (2.0-8.3) x10*3/uL Absolute Nucleated RBC (0.0-0.012) X10*3/uL Nucleated RBC % (auto) (0.0-0.2) /100WBC PT 28.9 H D (11.1-13.3) SEC INR 2.4 H (0.9-1.1) Sodium (135-145) mmol/L Potassium (3.3-5.1) mmol/L Chloride (96-108) mmol/L Carbon Dioxide (22-29) mmol/L Anion Gap (12-20) BUN (9-16) mg/dL Creatinine (0.5-1.4) mg/dL Estim Creat Clear Calc Estimated GFR Random Glucose (60-115) mg/dL Calcium (8.4-10.2) mg/dL Total Bilirubin (0.0-1.0) mg/dL AST (5-31) U/L ALT (0-31) U/L Alkaline Phosphatase (39-117) U/L Troponin I High Sens (<3.5-17.0) ng/L B-Natriuretic Peptide 182 H (<100) pg/mL Total Protein (6.5-8.0) g/dL Albumin (3.5-5.0) g/dL Independent Interpretation I performed an independent interpretation of an: EKG Interpretation: Rate: 120 Rhythm: aflutter 2;1 [place]: normal RBBB ST T wave : nonspecific ST T wave changes no CLAUDINE qTC: normal prior studies: no acute ischemia The study has been interpreted contemporaneously by me. . External Record Review External record reviewed: Inpatient record, Outpatient record and Prior outpatient labs Prescription Management I considered prescription management with: Other diltiazem Discharge Plan Discharge Clinical Impression: Atrial flutter Qualifiers: Atrial flutter type: unspecified Qualified Code(s): I48.92 - Unspecified atrial flutter Patient Disposition: Home, Self-Care Instructions: Atrial Flutter (ED) Additional Instructions: call your performance makeup artist on Thursday about your visit. return for dizziness, chest pain, swelling, shortness of breath or worsening breathing. return for any other concerns. continue your medications. stop the diltiazem 180mg we are going to increase it given the elevated HR. hold the diltiazem for HR less than 60 and blood pressure under 90 Prescriptions: New diltiazem HCl [Cardizem CD] 240 mg capsule,extended release 24hr 240 mg PO DAILY Qty: 30 0RF No Action metoprolol succinate 50 mg tablet extended release 24 hr 50 mg PO BID 90 Days Qty: 180 3RF Protocol: Hold for SBP/HR < HOLD for SBP < : 90 HOLD for HR < : 60 Rx Instructions: Replaces prior dose of 75 mg twice daily penicillin V potassium 250 mg Tablet 250 mg PO BID albuterol sulfate 90 mcg/actuation Hfa Aerosol Inhaler 2 puff INHALATION Q4-6H PRN (Reason: Respiratory Distress) loratadine 10 mg Tablet 10 mg PO DAILY rosuvastatin 10 mg Tablet 10 mg PO DAILY duloxetine 60 mg Capsule,Delayed Release(Dr/Ec) 60 mg PO DAILY Rx Instructions: TAKE WITH 40MG duloxetine 40 mg Capsule, Delayed Rel Sprinkle 40 mg PO DAILY Rx Instructions: TAKE WITH 60MG nitrofurantoin monohyd/m-cryst 100 mg capsule 100 mg PO BID lamotrigine 200 mg tablet 200 mg PO BEDTIME Rx Instructions: TAKE WITH 50MG lamotrigine 25 mg tablet 50 mg PO BEDTIME Rx Instructions: TAKE WITH 200MG clonidine HCl 0.1 mg tablet 0.1 mg PO BID PRN (Reason: Anxiety) ipratropium bromide 21 mcg (0.03 %) spray,non-aerosol 2 spray intranasal BID PRN (Reason: Allergy Symptoms) cyclobenzaprine 5 mg tablet 5 mg PO BEDTIME PRN (Reason: muscle spasm) Xarelto 20 mg Tablet 20 mg PO DAILY Qty: 30 0RF Rx Instructions: Replaces warfarin furosemide 40 mg tablet 40 mg PO DAILY Qty: 30 0RF nicotine 21 mg/24 hr patch 24 hour 21 mg transdermal DAILY PRN (Reason: Nicotine Cravings) diltiazem HCl [Cardizem CD] 180 mg Capsule,Extended Release 24hr 180 mg PO DAILY Qty: 14 0RF Protocol: Hold for SBP/HR < HOLD for SBP < : 90 HOLD for HR < : 60 amiodarone 200 mg Tablet 200 mg PO DAILY Qty: 14 0RF ropinirole 0.5 mg tablet 0.5 mg PO TID budesonide-formoterol [Symbicort] 80-4.5 mcg/actuation HFA aerosol inhaler 2 puff inhalation BID Discharge Date/Time: 02/28/23 02:48
[2023-02-27 18:20] LABS: MANUAL DIFF FLAG NO
--- NOTE | 2023-02-27 18:24 | ECG_ITS ---
Test Reason : REPEAT TACHY Blood Pressure : / mmHG Vent. Rate : 120 BPM Atrial Rate : 000 BPM P-R Int : 000 ms QRS Dur : 162 ms QT Int : 442 ms P-R-T Axes : 000 -09 264 degrees QTc Int : 624 ms Atrial flutter with rapid ventricular rate Right bundle branch block Abnormal ECG When compared with ECG of 27-FEB-2023 17:55, No significant changes seen Referred By: Tracy Handley Electronically Signed By:TERESO NICHOLAS
[2023-02-27 18:37] LABS: Alanine Aminotransferase 22 U/L (0-31); Albumin Level 3.9 g/dL (3.5-5.0); Alkaline Phosphatase 73 U/L (39-117); Anion Gap 16 (12-20); Aspartate Amino Transferase 19 U/L (5-31); Bilirubin Total 0.4 mg/dL (0.0-1.0); Blood Urea Nitrogen 11 mg/dL (9-16); Calcium 9.2 mg/dL (8.4-10.2); Carbon Dioxide 24 mmol/L (22-29); Chloride 103 mmol/L (96-108); Creatinine Clr Calc Pharmacy 90.1; Estimated Glomerular Filt Rate > 60; Glucose Random 267 mg/dL (60-115); Potassium 3.6 mmol/L (3.3-5.1); Sodium 139 mmol/L (135-145); Total Protein 7.4 g/dL (6.5-8.0)
[2023-02-27 18:42] LABS: B Type Natriuretic Peptide 182 pg/mL (<100)
[2023-02-27 18:48] LABS: Basophils Percent Auto 0.5 % (0-2); Eosinophils Absolute Auto 0.1 X10*3/uL (0.0-0.4); Eosinophils Percent Auto 1.3 % (0-4); Hematocrit 42.1 % (37.0-47.0); Hemoglobin 13.6 g/dl (12.0-16.0); Imm Gran Abs Auto 0.03 X10*3/uL (0.00-0.03); Imm Gran Pct Auto 0.5 % (0.0-0.4); Lymphocytes Absolute Auto 1.6 X10*3/uL (1.2-4.9); Lymphocytes Percent Auto 26.1 % (20-40); Mean Corpuscular HGB Conc 32.3 g/dl (31.0-35.0); Mean Corpuscular Hemoglobin 28.8 pg (27.0-33.0); Mean Corpuscular Volume 89.2 fL (80.0-98.0); Mean Platelet Volume 11.6 fL (9.4-12.3); Monocytes Absolute Auto 0.2 X10*3/uL (0.1-1.2); Monocytes Percent Auto 3.9 % (2-11); Neutrophils Percent Auto 67.7 % (45-73); Platelet Count 170 X10*3/uL (160-400); Red Blood Count 4.72 X10*6/uL (4.20-5.50); Red Cell Distribution Width 15.5 % (11.0-16.0); White Blood Count 5.9 X10*3/uL (4.8-10.8)
[2023-02-27 18:51] LABS: Troponin-I High Sensitivity < 2.7 ng/L (<3.5-17.0)
[2023-02-27 18:58] LABS: INTERNATIONAL NORM RATIO 2.4 (0.9-1.1); Prothrombin Time 28.9 SEC (11.1-13.3)
[2023-02-27 19:28] VITALS: BP 121/72; PULSE 120; RESP 18; O2SAT 98
[2023-02-27 19:30] VITALS: BP 107/72; PULSE 121; RESP 20; TEMP 36.6; O2SAT 100
[2023-02-27] MEDS: dilTIAZem HCL 50 MG/10 ML VIAL 15 MG IVPUSH (19:32)
[2023-02-27] MEDS: oxyCODONE HCl Immed Release 5 MG TABLET 10 MG PO (19:33)
[2023-02-27 19:45] VITALS: BP 118/67; PULSE 106; TEMP 36.7
[2023-02-27 20:04] VITALS: BP 103/66; PULSE 91; RESP 18; O2SAT 99
== END 2023-02-28 02:48 | disposition home or self-care (01) ==
PROVIDERS: Registered Nurse Emergency; Emergency Provider Emergency Medicine; PCP Family Medicine
DX: I48.92 Unspecified atrial flutter (principal); R00.0 Tachycardia, unspecified; I45.10 Unspecified right bundle-branch block; E11.9 Type 2 diabetes mellitus without complications; I10 Essential (primary) hypertension; E78.5 Hyperlipidemia, unspecified; J44.9 Chronic obstructive pulmonary disease, unspecified; F17.210 Nicotine dependence, cigarettes, uncomplicated; Z86.718 Personal history of other venous thrombosis and embolism; Z79.01 Long term (current) use of anticoagulants
CPT/HCPCS: 36415; 80053; 83880; 84484; 85025; 85610; 93005; 96374; 99284; 99285

== ENCOUNTER → 2023-02-27 17:36 | Outpatient (BNV) | payer OTHER, SELFPAY | PROVIDERS: Emergency Provider Emergency Medicine; PCP Family Medicine; Visit Provider Internal Medicine | DX: I48.92 Unspecified atrial flutter (principal); R94.31 Abnormal electrocardiogram [ECG] [EKG] | CPT/HCPCS: 93010 ==

== ENCOUNTER 2023-03-10 13:01 | Outpatient (AMB) | payer OTHER, SELFPAY ==
--- NOTE | 2023-03-10 13:08 | A.OFFVIS_ITS ---
Intake Vital Signs 03/10/23 13:09 Height 5 ft 3 in Weight 240 lb 4.862 oz BMI 42.6 BP 100/58 L Blood Pressure Location Lt brachial Position Sitting Pulse 90 Pulse Source Pulse Oximeter Intake Visit Reasons: [facility] [place] [facility] Intake Note: [facility] Allergies adhesive Allergy (Verified 09/29/22 14:58) Rash Medication List - Last Reviewed 03/10/23 by Gali Spicer albuterol sulfate 90 mcg/actuation 2 puffs inhalation Q4-6H PRN amiodarone 200 mg PO DAILY budesonide-formoterol 80-4.5 mcg/actuation (Symbicort) 2 puffs inhalation BID clonidine HCl 0.1 mg PO BID PRN cyclobenzaprine 5 mg PO BEDTIME PRN diltiazem HCl (Cardizem CD) 240 mg PO DAILY duloxetine 60 mg PO DAILY duloxetine 40 mg PO DAILY furosemide 40 mg PO DAILY ipratropium bromide 2 sprays intranasal BID PRN lamotrigine 200 mg PO BEDTIME lamotrigine 50 mg PO BEDTIME loratadine 10 mg PO DAILY metoprolol succinate ER 50 mg See Protocol PO BID 90 days nicotine 21 mg transdermal DAILY PRN nitrofurantoin monohyd/m-cryst 100 mg 100 mg PO BID penicillin V potassium 250 mg PO BID rivaroxaban (Xarelto) 20 mg PO DAILY ropinirole 0.5 mg PO TID rosuvastatin 10 mg PO DAILY HPI HPI Comments History of Present Illness Details 57-year-old female here for follow-up. She has a hx of atrial flutter, respitatory failyure with requirement of BPAP which she doesnt always wear all night, right heart failure, diabtes, HLD, and HTN. She was seen for atrial flutter and in her last visit to the ED on 02/27 her diltiazem was increased from 180mg to 240mg. Prior she was cardioverted with Dr Orozco in 02/09/23 with success but she has returned back to atrial flutter. She reports compliance with all her medications. She reports dizziness that has been on and off for months and SOB. She denies palpations, or hematuria, or hematochezia. She reports she has decreased from 2 packs of cigarettes a day to only half of the pack. [facility] Medical History Arthritis COPD (chronic obstructive pulmonary disease) Diabetes Disc disorder of cervical region Disc disorder of lumbar region DVT of axillary vein, acute HLD (hyperlipidemia) HTN (hypertension) Scoliosis Surgical History Previous back surgery Status post knee replacement Family History Father Stroke Other Diabetes Social History Household Members: Family Household Members Other:: daughter Housing: Apartment Do you presently have visiting nurse or other home services: Yes Alcohol intake: never Patient Tobacco Use Status: Current everyday Tobacco user Tobacco use type: Cigarette Cigarette Packs Per Day: 1.5 Cigarettes Per Day: 20 Years Smoked: 40 +/- Second Hand Smoke Exposure: No Advance Directives Date on File: 11/24/21 service: No Review of Systems Const Denies chills, Denies fatigue, Denies fever(s), Denies frequent falls, Denies weakness, Denies weight gain and Denies weight loss ENT Reports dizziness Card Denies chest pain, Denies chest pain at rest, Denies chest pain with activity, Denies rapid heart rate, Denies pedal edema, Denies edema, Denies leg edema, Denies lightheadedness, Denies palpitations, Denies dyspnea, Denies dyspnea on exertion and Denies orthopnea Resp Denies cough, Denies dyspnea and Denies dyspnea on exertion GI Denies hematochezia and Denies change in stool character Musc Denies abnormal gait, Reports limited range of motion, Denies muscle cramps, Denies muscle weakness, Denies numbness, Denies radiating pain into limb, Denies stiffness and Denies tingling Neuro Denies abnormal gait, Reports dizziness, Denies frequent falls, Denies numbness, Denies tingling and Denies weakness Endo Denies fatigue and Denies palpitations Physical Exam Vital Signs: Last Vital Signs Pulse 90 03/10/23 13:09 BP 100/58 L 03/10/23 13:09 BMI result Body Mass Index 42.6 Const General: healthy appearing and no acute distress Orientation/consciousness: patient oriented x3 HEENT Head: Yes normal to inspection Eyes General: appearance normal, both eyes and all related structures Neck Neck: Yes normal visual inspection Chest Chest palpation & inspection: normal inspection of the chest Resp Effort & Inspection: normal respiratory effort Auscultation: clear to auscultation bilaterally Cardio Jugular venous distension: no JVD Palpation: normal PMI Rate: regular rate Rhythm: other (Atrial Flutter) Heart sounds: S2 normal heart sound present, no click, no gallops, no murmurs and no rubs GI Inspection: Yes normal to inspection Palpation (GI): Soft to palpation Skin General skin exam: no rashes or lesions noted Neuro General: patient oriented x3 Extrem General: Yes normal to inspection Psych Appearance: grossly normal Office Procedures EKG Details: EKG performed today : Atrial Flutter with 2:! AV conduction. QTc 419ms. [id number], Complete Assessment & Plan Assessment & Plan (1) Atrial flutter: Code(s): I48.92 - Unspecified atrial flutter Qualifiers: Atrial flutter type: unspecified Qualified Code(s): I48.92 - Unspecified atrial flutter (2) HTN (hypertension): Code(s): I10 - Essential (primary) hypertension Plan Patient is on amiodarone 200mg QD, diltiazem 240mg QD, furosemide 40mg QD, Xarelto 20mg QD, metoprolol succinate 50mg BID, and Rosuvastatin 10mg QD - continue as is. She agreed to ablation and given number to reschedule her appointment with the office. She reports SOB and dizziness. No palpitations. She reports not being 100% compliant with her BPAP machine - encourage full compliance to help with symptoms. Encouraged to keep cutting back on smoking until she is completely cigarette free. Dicussed warning signs of bleeding. Will discuss with Dr Orozco about plan of care going forward. Medications: Discontinued cyclobenzaprine 5 mg PO TID PRN 10 tabs 0RF muscle spasm nicotine 21 mg transdermal DAILY 28 ea 0RF Coding Level of Care Code Est Pt Level 3 (53384) Diagnoses Atrial flutter I48.92 Atrial flutter type: unspecified HTN (hypertension) I10 CPT Codes EKG - CPT: 13285-[id number], Complete ([id number])
[2023-03-10 13:09] VITALS: BP 100/58; PULSE 90; BMI 42.6
== END 2023-03-10 14:09 | disposition home or self-care (01) ==
PROVIDERS: PCP Family Medicine; Visit Provider Nurse Practitioner
DX: I48.92 Unspecified atrial flutter (principal)
CPT/HCPCS: 93010; 99213

== ENCOUNTER → 2023-03-10 13:01 | Outpatient (BNVA) | payer OTHER, SELFPAY | PROVIDERS: PCP Family Medicine; Visit Provider Nurse Practitioner | DX: I48.92 Unspecified atrial flutter (principal); I10 Essential (primary) hypertension; Z79.01 Long term (current) use of anticoagulants; Z79.899 Other long term (current) drug therapy | CPT/HCPCS: 93005; 99212 ==

== ENCOUNTER 2023-03-15 18:06 | Inpatient (IN) | payer OTHER, SELFPAY ==
--- NOTE | ~2023-03-15 | XR_ITS ---
EXAMINATION: XR CHEST CLINICAL INFORMATION: Chest pain COMPARISON: Chest radiograph from 02/05/2023 TECHNIQUE: Frontal view of the chest was obtained. FINDINGS: Slight bronchial thickening which can be seen in setting of infectious/inflammatory etiology. Stable interstitial prominence. No pneumothorax. Trachea is midline. Cardiac mediastinal silhouette is stable. Aorta demonstrates atherosclerotic calcifications. No large pleural effusion. Osseous structures are intact. Soft tissues are unremarkable. XR/XR chest 1V IMPRESSION: 1. Slight bronchial thickening which can be seen in setting of infectious/inflammatory etiology. 2. Stable interstitial prominence.
--- NOTE | ~2023-03-15 | CT_ITS ---
EXAMINATION: CT HEAD WITHOUT CONTRAST CLINICAL INFORMATION: Headache. On Xarelto. COMPARISON: CT of the head done on 01/02/2023. TECHNIQUE: Contiguous axial imaging was performed from the skull base to vertex without intravenous administration of contrast. This CT examination was performed using dose optimization techniques as appropriate, variously including the following: *Automated exposure control *Adjustment of mA and/or kV according to patient size (this includes techniques or standardized protocols for targeted exams where dose is matched to indication/reason for exam; i.e. extremities or head) *Use of iterative reconstruction technique DLP: 641.9 mGy-cm FINDINGS: There is no evidence of acute intracranial hemorrhage or territorial infarction. No abnormal mass effect or midline shift is seen. Pretty to white matter differentiation is well preserved. No extra-axial fluid collections are identified. No significant volume loss. No hydrocephalus. There is no abnormal attenuation within the brain parenchyma. Incidental note is made of bilateral basal ganglia and bilateral cerebellar calcifications, similar to prior study. The osseous structures and soft tissues are normal. The mastoid air cells and visualized portions of the paranasal sinuses are well aerated. CT/CT head/brain wo IV con IMPRESSION: No CT evidence of any acute intracranial pathology, unchanged since 01/02/2023.
[2023-03-15 18:11] VITALS: BP 135/97; PULSE 122; O2SAT 95
[2023-03-15 18:15] VITALS: BP 133/78; PULSE 112; RESP 18; TEMP 36.9; O2SAT 100; BMI 44.0
--- NOTE | 2023-03-15 18:35 | ED_ITS ---
HPI - General Adult General Chief complaint: General Medical Stated complaint: Chest pressure Time Seen by Provider: 03/15/23 18:22 Source: patient Mode of arrival: EMS Limitations: no limitations History of Present Illness HPI narrative: Patient with hx of atrial flutter on Xarelto , having headache last few days feeling dizzy off and on today while at the store had left-sided chest tightness with palpitation EMS came noticed heart rate in the 132. Patient also noticed increased leg swelling with blisters on furosemide few days ago patient fell without hitting her head also complaining of headaches off and on for last few months Per records patient does have recurrent atrial flutter with symptoms of low blood pressure lightheadedness with rapid heart rate despite of recent cardioversion and on amiodarone therapy also patient is on Cardizem 240 mg daily and metoprolol 50 mg daily seen by cardiology on 02/20 planning for ablation which she is under process of getting it done Related Data Home Medications Medication Instructions Recorded Confirmed albuterol sulfate 90 mcg/actuation 2 puff inhalation Q4-6H PRN 11/24/21 02/19/23 aerosol inhaler Respiratory Distress duloxetine 40 mg capsule,delayed 40 mg PO DAILY 11/24/21 02/19/23 release sprinkle duloxetine 60 mg capsule,delayed 60 mg PO DAILY 11/24/21 02/19/23 release loratadine 10 mg tablet 10 mg PO DAILY 11/24/21 02/19/23 penicillin V potassium 250 mg 250 mg PO BID 11/24/21 02/19/23 tablet rosuvastatin 10 mg tablet 10 mg PO DAILY 11/24/21 02/19/23 nitrofurantoin 100 mg PO BID 12/31/21 02/19/23 monohydrate/macrocrystals 100 mg capsule ropinirole 0.5 mg tablet 0.5 mg PO TID 05/01/22 02/19/23 budesonide-formoterol HFA 80 2 puff inhalation BID 09/29/22 02/19/23 mcg-4.5 mcg/actuation aerosol inhaler (Symbicort) clonidine HCl 0.1 mg tablet 0.1 mg PO BID PRN Anxiety 02/05/23 02/19/23 cyclobenzaprine 5 mg tablet 5 mg PO BEDTIME PRN muscle spasm 02/05/23 02/19/23 ipratropium bromide 21 mcg (0.03 2 spray intranasal BID PRN Allergy 02/05/23 02/19/23 %) nasal spray Symptoms lamotrigine 200 mg tablet 200 mg PO BEDTIME 02/05/23 02/19/23 lamotrigine 25 mg tablet 50 mg PO BEDTIME 02/05/23 02/19/23 nicotine 21 mg/24 hr daily 21 mg transdermal DAILY PRN 02/19/23 02/19/23 transdermal patch Nicotine Cravings Previous Rx's Medication Instructions Recorded furosemide 40 mg tablet 40 mg PO DAILY #30 tabs 02/10/23 rivaroxaban 20 mg tablet (Xarelto) 20 mg PO DAILY #30 tabs 02/10/23 metoprolol succinate 50 mg 50 mg PO BID 90 days #180 tabs 02/17/23 tablet,extended release 24 hr amiodarone 200 mg tablet 200 mg PO DAILY #14 tabs 02/22/23 diltiazem HCl 240 mg 240 mg PO DAILY #30 caps 02/27/23 capsule,extended release 24 hr (Cardizem CD) Allergies Allergy/AdvReac Type Severity Reaction Status Date / Time adhesive Allergy Rash Verified 09/29/22 14:58 Review of Systems Review of Systems: Yes all other systems are reviewed and are negative [facility] Past Medical History Medical History Arthritis COPD (chronic obstructive pulmonary disease) Diabetes Disc disorder of cervical region Disc disorder of lumbar region DVT of axillary vein, acute HLD (hyperlipidemia) HTN (hypertension) Scoliosis Surgical History Previous back surgery Status post knee replacement Family History Family History Father Stroke Other Diabetes Social History Social History Household Members: Family Household Members Other:: daughter Housing: Apartment Do you presently have visiting nurse or other home services: Yes Alcohol intake: never Patient Tobacco Use Status: Current everyday Tobacco user Tobacco use type: Cigarette Cigarette Packs Per Day: 1.5 Cigarettes Per Day: 20 Years Smoked: 40 +/- Second Hand Smoke Exposure: No Advance Directives: Yes Advance Directives Information Provided: No Advance Directives on File: No Advance Directives Date on File: 11/24/21 service: No Physical Exam ED Vital Signs: Vital Signs - 24 hr 03/15/23 18:15 03/15/23 20:06 03/15/23 20:25 Temperature 98.5 F 97.9 F Pulse Rate 112 H 90 102 H Respiratory Rate 18 18 13 Blood Pressure 133/78 105/87 106/64 Pulse Oximetry 100 98 96 Oxygen Delivery Method Room Air Room Air Room Air BMI result Body Mass Index 44.0 Appearance: Alert. Oriented X3. No acute distress. Eyes: PERRLA, No Nystagmus ENT: Pharynx normal. Oral Mucosa moist Neck: Normal inspection. Neck supple. CVS: Irregularly irregular tachycardic, Pulses normal. Respiratory: No respiratory distress. Equal air entry bilateral, no wheezing/rales/rhonchi Abdomen: Soft and nontender. Bowel sounds are present, no mass palpable, no CVA tenderness Skin: Skin warm and dry. Normal skin color. Normal skin turgor. Extremities: 3+ lower extremity edema. With clear fluid blister+ No calf tenderness Neuro: Oriented X 3. No motor deficit. No sensory deficit.No cerebellar signs , cranial nerves II-XII intact Medications Administered Generic Name Dose Route Start Last Admin Trade Name Freq PRN Reason Stop Dose Admin Sodium Chloride 3 ml 03/16/23 00:00 03/16/23 00:14 0.9 % Sodium Chloride Flush 3 Ml Syringe IVFLUSH Not Given QSHIFT [place] Discontinued Medications Generic Name Dose Route Start Last Admin Trade Name Freq PRN Reason Stop Dose Admin Metoprolol Tartrate 5 mg 03/15/23 20:17 03/15/23 20:25 Metoprolol Tartrate 5 Mg/5 Ml Vial IVPUSH 03/15/23 20:18 5 mg ONCE ONE Administration Oxycodone HCl 5 mg 03/15/23 20:32 03/15/23 20:46 Oxycodone Hcl Immed Release 5 Mg Tablet PO 03/15/23 20:33 5 mg ONCE ONE Administration Medical Decision Making Medical Decision Making [facility] Narrative: Patient is oriented to have tachycardia with atrial flutter she responded to Lopressor for short time again became tachycardic heart rate 110-120 started on Cardizem drip admit Differential Diagnosis Differential Diagnoses: The differential diagnosis associated with the presentation includes CHF/atrial flutter with fast ventricular rate/migraine headache Admission/Observation Consideration of admission/observation: Escalation of care including admission/observation considered Consult Healthcare Provider Management of the patient was discussed with: Hospitalist Lab Data MDM Lab Attestation statement: I reviewed the patient's lab results. 03/15/23 19:12 03/15/23 19:12 Labs: Lab Results 03/15/23 03/15/23 03/15/23 Range/Units 19:12 19:12 19:12 WBC 6.8 (4.8-10.8) X10*3/uL RBC 4.49 (4.20-5.50) X10*6/uL Hgb 13.1 (12.0-16.0) g/dl Hct 39.7 (37.0-47.0) % MCV 88.4 (80.0-98.0) fL MCH 29.2 (27.0-33.0) pg MCHC 33.0 (31.0-35.0) g/dl RDW 16.3 H (11.0-16.0) % Plt Count 170 (160-400) X10*3/uL MPV 9.3 L (9.4-12.3) fL Immature Gran % (Auto) 0.9 H (0.0-0.4) % Neut % (Auto) 41.9 L (45-73) % Lymph % (Auto) 44.2 H (20-40) % [place] % (Auto) 9.5 (2-11) % Eos % (Auto) 2.8 (0-4) % Baso % (Auto) 0.7 (0-2) % Lymph # (Auto) 3.0 (1.2-4.9) X10*3/uL [place] # (Auto) 0.7 (0.1-1.2) X10*3/uL Eos # (Auto) 0.2 (0.0-0.4) X10*3/uL Baso # (Auto) 0.1 (0.0-0.2) X10*3/uL Abs Immat Gran (auto) 0.06 H (0.00-0.03) X10*3/uL Absolute Neuts (auto) 2.9 (2.0-8.3) x10*3/uL Absolute Nucleated RBC 0.000 (0.0-0.012) X10*3/uL Nucleated RBC % (auto) 0.0 (0.0-0.2) /100WBC PT 23.3 H (11.1-13.3) SEC INR 1.9 H (0.9-1.1) APTT 36.6 H (26.0-36.4) SEC Sodium 143 (135-145) mmol/L Potassium 3.9 (3.3-5.1) mmol/L Chloride 107 (96-108) mmol/L Carbon Dioxide 27 (22-29) mmol/L Anion Gap 13 (12-20) BUN 9 (9-16) mg/dL Creatinine 0.77 (0.5-1.4) mg/dL Estim Creat Clear Calc 94.9 Estimated GFR > 60 Random Glucose 120 H (60-115) mg/dL Calcium 9.6 (8.4-10.2) mg/dL Magnesium 1.9 (1.6-2.6) mg/dL Total Bilirubin 0.5 (0.0-1.0) mg/dL AST 15 (5-31) U/L ALT 12 (0-31) U/L Alkaline Phosphatase 82 (39-117) U/L Troponin I High Sens (<3.5-17.0) ng/L B-Natriuretic Peptide (<100) pg/mL Total Protein 6.7 (6.5-8.0) g/dL Albumin 3.4 L (3.5-5.0) g/dL TSH 2.22 (0.32-4.0) uIU/mL COVID-19 (REMA) (Negative) COVID-19 Clin Com 03/15/23 03/15/23 03/15/23 Range/Units 19:12 19:12 19:27 WBC (4.8-10.8) X10*3/uL RBC (4.20-5.50) X10*6/uL Hgb (12.0-16.0) g/dl Hct (37.0-47.0) % MCV (80.0-98.0) fL MCH (27.0-33.0) pg MCHC (31.0-35.0) g/dl RDW (11.0-16.0) % Plt Count (160-400) X10*3/uL MPV (9.4-12.3) fL Immature Gran % (Auto) (0.0-0.4) % Neut % (Auto) (45-73) % Lymph % (Auto) (20-40) % [place] % (Auto) (2-11) % Eos % (Auto) (0-4) % Baso % (Auto) (0-2) % Lymph # (Auto) (1.2-4.9) X10*3/uL [place] # (Auto) (0.1-1.2) X10*3/uL Eos # (Auto) (0.0-0.4) X10*3/uL Baso # (Auto) (0.0-0.2) X10*3/uL Abs Immat Gran (auto) (0.00-0.03) X10*3/uL Absolute Neuts (auto) (2.0-8.3) x10*3/uL Absolute Nucleated RBC (0.0-0.012) X10*3/uL Nucleated RBC % (auto) (0.0-0.2) /100WBC PT (11.1-13.3) SEC INR (0.9-1.1) APTT (26.0-36.4) SEC Sodium (135-145) mmol/L Potassium (3.3-5.1) mmol/L Chloride (96-108) mmol/L Carbon Dioxide (22-29) mmol/L Anion Gap (12-20) BUN (9-16) mg/dL Creatinine (0.5-1.4) mg/dL Estim Creat Clear Calc Estimated GFR Random Glucose (60-115) mg/dL Calcium (8.4-10.2) mg/dL Magnesium (1.6-2.6) mg/dL Total Bilirubin (0.0-1.0) mg/dL AST (5-31) U/L ALT (0-31) U/L Alkaline Phosphatase (39-117) U/L Troponin I High Sens 4.4 D (<3.5-17.0) ng/L B-Natriuretic Peptide 171 H (<100) pg/mL Total Protein (6.5-8.0) g/dL Albumin (3.5-5.0) g/dL TSH (0.32-4.0) uIU/mL COVID-19 (REMA) Negative (Negative) COVID-19 Clin Com See Note Critical Care Time Critical Care Time Critical Care Time: Yes Total Critical Care Time: 45 Attestation: The patient was critically ill with a high probability of imminent or life threatening deterioration. I spent greater than 50 minutes of discontinuous time evaluating the patient,delivering critical care at the bedside, discussing and evaluating pertinent data with consultants. Critical care time does not include time spent performing separately billable procedures or teaching. Total time spent performing critical care was 45 minutes. Discharge Plan Discharge Clinical Impression: Atrial flutter with rapid ventricular response, Dizziness, Leg edema Patient Disposition: Admitted As Inpatient
--- NOTE | 2023-03-15 18:52 | ECG_ITS ---
Test Reason : afib Blood Pressure : / mmHG Vent. Rate : 090 BPM Atrial Rate : 242 BPM P-R Int : 000 ms QRS Dur : 092 ms QT Int : 416 ms P-R-T Axes : 000 015 071 degrees QTc Int : 508 ms Atrial flutter with variable A-V block Low voltage QRS Right bundle branch block Abnormal ECG When compared with ECG of 27-FEB-2023 18:33, Vent. rate has decreased Referred By: Raul Michele Electronically Signed By:SHIV BROOKS
[2023-03-15 19:17] LABS: MANUAL DIFF FLAG NO
[2023-03-15 19:18] LABS: Basophils Absolute Auto 0.1 X10*3/uL (0.0-0.2); Basophils Percent Auto 0.7 % (0-2); Eosinophils Absolute Auto 0.2 X10*3/uL (0.0-0.4); Eosinophils Percent Auto 2.8 % (0-4); Hematocrit 39.7 % (37.0-47.0); Hemoglobin 13.1 g/dl (12.0-16.0); Imm Gran Abs Auto 0.06 X10*3/uL (0.00-0.03); Imm Gran Pct Auto 0.9 % (0.0-0.4); Lymphocytes Percent Auto 44.2 % (20-40); Mean Corpuscular Hemoglobin 29.2 pg (27.0-33.0); Mean Corpuscular Volume 88.4 fL (80.0-98.0); Mean Platelet Volume 9.3 fL (9.4-12.3); Monocytes Absolute Auto 0.7 X10*3/uL (0.1-1.2); Monocytes Percent Auto 9.5 % (2-11); Neutrophils Absolute Auto 2.9 x10*3/uL (2.0-8.3); Neutrophils Percent Auto 41.9 % (45-73); Platelet Count 170 X10*3/uL (160-400); Red Blood Count 4.49 X10*6/uL (4.20-5.50); Red Cell Distribution Width 16.3 % (11.0-16.0); White Blood Count 6.8 X10*3/uL (4.8-10.8)
[2023-03-15 19:23] LABS: INTERNATIONAL NORM RATIO 1.9 (0.9-1.1); Prothrombin Time 23.3 SEC (11.1-13.3)
[2023-03-15 19:26] LABS: Partial Thromboplastin Time 36.6 SEC (26.0-36.4)
[2023-03-15 19:35] LABS: Alanine Aminotransferase 12 U/L (0-31); Albumin Level 3.4 g/dL (3.5-5.0); Alkaline Phosphatase 82 U/L (39-117); Anion Gap 13 (12-20); Aspartate Amino Transferase 15 U/L (5-31); Bilirubin Total 0.5 mg/dL (0.0-1.0); Blood Urea Nitrogen 9 mg/dL (9-16); Calcium 9.6 mg/dL (8.4-10.2); Carbon Dioxide 27 mmol/L (22-29); Chloride 107 mmol/L (96-108); Creatinine Clr Calc Pharmacy 94.9; Estimated Glomerular Filt Rate > 60; Glucose Random 120 mg/dL (60-115); Potassium 3.9 mmol/L (3.3-5.1); Sodium 143 mmol/L (135-145); Total Protein 6.7 g/dL (6.5-8.0)
[2023-03-15 19:39] LABS: B Type Natriuretic Peptide 171 pg/mL (<100)
[2023-03-15 19:42] LABS: Troponin-I High Sensitivity 4.4 ng/L (<3.5-17.0)
[2023-03-15 19:48] LABS: COVID-19 Test Negative (Negative); IDNOW Serial# 08D9AD1C
[2023-03-15 20:06] VITALS: BP 105/87; PULSE 90; RESP 18; TEMP 36.6; O2SAT 98
[2023-03-15 20:25] VITALS: BP 106/64; PULSE 102; RESP 13; O2SAT 96
[2023-03-15] MEDS: Metoprolol Tartrate 5 MG/5 ML VIAL IVPUSH (20:25)
[2023-03-15] MEDS: oxyCODONE HCl Immed Release 5 MG TABLET PO (20:46)
--- NOTE | 2023-03-15 20:48 | PC.NURSE ---
pt c/o 05/05 headache medicated with 5mg of oxycodone po
--- NOTE | 2023-03-15 22:10 | PM.IMHP ---
History of Present Illness Date of Service: 03/15/23 Attending physician on admission: Yong Welch Chief Complaint: diaphoresis, palpitations 57-year-old female past medical history of a flutter, COPD, heart failure with preserved ejection fraction, history DVT, chronic respiratory failure requiring treatment with nocturnal BiPAP, HLD, HTN, chronic back pain, [id number] type 2 diabetes, and morbid obesity presented to the ED for evaluation of headaches, intermittent lightheadedness ongoing for several days and an episode of left-sided chest tightness with palpitation earlier today prompting her to contact EMS. She has also had increased bilateral lower extremity edema. Denies any shortness of breath. She has undergone cardioversion several times and follows routinely with Dr. Orozco on amiodarone therapy as well as Cardizem and metoprolol for her atrial flutter. Cardiology is planning for ablation but this is not yet scheduled. On arrival, patient tachycardic to 112, was 132 per EMS. No hypotension. Chest x-ray showing slight bronchial thickening and stable interstitial prominence. Head CT ordered given recent fall without loss of consciousness is negative for any acute intracranial pathology. EKG showed atrial flutter with variable AV block, rate 90 without acute ischemia. In the ED, given 5 mg IV Lopressor with improvement in heart rate varying 90-112. She was also given oxycodone 5 mg for low back pain. Review of Systems Review of Systems: General: No fevers, malaise, unintentional weight loss Cardiovascular: +chest pain, +diaphoresis, +palpitations, +ble Respiratory: No shortness of breath, wheezing, cough GI: No abdominal pain, nausea, vomiting, diarrhea, constipation, melena, hematochezia : No dysuria, hematuria, increased urinary frequency, decreased urinary output MSK: No myalgia. +back pain Neuro: No headaches, weakness, paresthesias Skin: No rashes or lesions [facility] Medical History Arthritis COPD (chronic obstructive pulmonary disease) Diabetes Disc disorder of cervical region Disc disorder of lumbar region DVT of axillary vein, acute HLD (hyperlipidemia) HTN (hypertension) Scoliosis Family History Father Stroke Other Diabetes Surgical History Previous back surgery Status post knee replacement Social History Household Members: Family Household Members Other:: daughter Housing: Apartment Do you presently have visiting nurse or other home services: Yes Alcohol intake: never Patient Tobacco Use Status: Current everyday Tobacco user Tobacco use type: Cigarette Cigarette Packs Per Day: 1.5 Cigarettes Per Day: 20 Years Smoked: 40 +/- Second Hand Smoke Exposure: No Advance Directives: Yes Advance Directives Information Provided: No Advance Directives on File: No Advance Directives Date on File: 11/24/21 service: No Meds Allergies Allergy/AdvReac Type Severity Reaction Status Date / Time adhesive Allergy Rash Verified 09/29/22 14:58 Active Medications: Current Medications Acetaminophen (Acetaminophen 325 Mg Tablet) 650 mg PO Q6H PRN PRN Reason: Pain, Mild (Pain Scale 1-3) Docusate Sodium (Docusate Sodium 100 Mg Capsule) 100 mg PO DAILY PRN PRN Reason: Constipation Ondansetron HCl (Ondansetron Hcl 4 Mg/2 Ml Vial) 4 mg IVPUSH Q8H PRN PRN Reason: Nausea and Vomiting Sodium Chloride (0.9 % Sodium Chloride Flush 3 Ml Syringe) [address] ml [address]FSH [facility] Medications Medication Instructions Recorded Confirmed Last Taken Type albuterol sulfate 90 mcg/actuation 2 puff inhalation Q4-6H PRN 11/24/21 02/19/23 02/19/23 History aerosol inhaler Respiratory Distress duloxetine 40 mg capsule,delayed 40 mg PO DAILY 11/24/21 02/19/23 02/19/23 History release sprinkle duloxetine 60 mg capsule,delayed 60 mg PO DAILY 11/24/21 02/19/23 02/19/23 History release loratadine 10 mg tablet 10 mg PO DAILY 11/24/21 02/19/23 02/19/23 History penicillin V potassium 250 mg 250 mg PO BID 11/24/21 02/19/23 02/19/23 History tablet rosuvastatin 10 mg tablet 10 mg PO DAILY 11/24/21 02/19/23 02/19/23 History nitrofurantoin 100 mg PO BID 12/31/21 02/19/2323 History monohydrate/macrocrystals 100 mg capsule ropinirole 0.5 mg tablet 0.5 mg PO TID 05/01/22 02/19/23 02/19/23 History budesonide-formoterol HFA 80 2 puff inhalation BID 09/29/22 02/19/23 02/19/23 History mcg-4.5 mcg/actuation aerosol inhaler (Symbicort) clonidine HCl 0.1 mg tablet 0.1 mg PO BID PRN Anxiety 02/05/23 02/19/23 02/19/23 History cyclobenzaprine 5 mg tablet 5 mg PO BEDTIME PRN muscle spasm 02/05/23 02/19/23 02/19/23 History ipratropium bromide 21 mcg (0.03 2 spray intranasal BID PRN Allergy 02/05/23 02/19/23 02/19/23 History %) nasal spray Symptoms lamotrigine 200 mg tablet 200 mg PO BEDTIME 02/05/23 02/19/23 02/19/23 History lamotrigine 25 mg tablet 50 mg PO BEDTIME 02/05/23 02/19/23 02/19/23 History nicotine 21 mg/24 hr daily 21 mg transdermal DAILY PRN 02/19/23 02/19/23 02/19/23 History transdermal patch Nicotine Cravings Physical Exam Vital Signs and Narrative: Vital Signs: Last Vital Signs Temp 97.9 F 03/15/23 20:06 Pulse 102 H 03/15/23 20:25 Resp 13 03/15/23 20:25 BP 106/64 03/15/23 20:25 Pulse Ox 96 03/15/23 20:25 O2 Del Method Room Air 03/15/23 20:25 BMI result Body Mass Index 44.0 Constitutional - Awake and Alert, No apparent distress Eyes - PERRLA, EOMI Cardiovascular - S1S2, regularly irregular, tachycardic, 1+ ble edema Respiratory - Normal lung expansion, Normal respiratory effort, No respiratory distress, CTA bilaterally Extremities - no calf tenderness bilaterally, no swelling Skin - Warm/Dry Neurological - Alert & oriented x3 Psychological - Appropriate affect Results Labs 03/15/23 19:12 03/15/23 19:12 Labs: Laboratory Results - last 24 hr 03/15/23 03/15/23 03/15/23 19:12 19:12 19:12 MCV 88.4 MCH 29.2 MCHC 33.0 RDW 16.3 H Plt Count 170 MPV 9.3 L Immature Gran % (Auto) 0.9 H Neut % (Auto) 41.9 L Lymph % (Auto) 44.2 H [place] % (Auto) 9.5 Eos % (Auto) 2.8 Baso % (Auto) 0.7 Lymph # (Auto) 3.0 [place] # (Auto) 0.7 Eos # (Auto) 0.2 Baso # (Auto) 0.1 Abs Immat Gran (auto) 0.06 H Absolute Neuts (auto) 2.9 Absolute Nucleated RBC 0.000 Nucleated RBC % (auto) 0.0 PT 23.3 H INR 1.9 H APTT 36.6 H Anion Gap 13 Estim Creat Clear Calc 94.9 Estimated GFR > 60 Random Glucose 120 H Calcium 9.6 Total Bilirubin 0.5 AST 15 ALT 12 Alkaline Phosphatase 82 B-Natriuretic Peptide Total Protein 6.7 Albumin 3.4 L COVID-19 (REMA) COVID-19 Clin Com 03/15/23 03/15/23 19:12 19:27 MCV MCH MCHC RDW Plt Count MPV Immature Gran % (Auto) Neut % (Auto) Lymph % (Auto) [place] % (Auto) Eos % (Auto) Baso % (Auto) Lymph # (Auto) [place] # (Auto) Eos # (Auto) Baso # (Auto) Abs Immat Gran (auto) Absolute Neuts (auto) Absolute Nucleated RBC Nucleated RBC % (auto) PT INR APTT Anion Gap Estim Creat Clear Calc Estimated GFR Random Glucose Calcium Total Bilirubin AST ALT Alkaline Phosphatase B-Natriuretic Peptide 171 H Total Protein Albumin COVID-19 (REMA) Negative COVID-19 Clin Com See Note Imaging Radiologist's Impressions: Impressions Chest X-Ray 03/15/23 19:16 IMPRESSION: 1. Slight bronchial thickening which can be seen in setting of infectious/inflammatory etiology. 2. Stable interstitial prominence. Head CT 03/15/23 19:23 IMPRESSION: No CT evidence of any acute intracranial pathology, unchanged since 01/02/2023. Assessment and Plan (1) Atrial flutter with rapid ventricular response: Status: Acute Plan 57-year-old female past medical history of a flutter, COPD, heart failure with preserved ejection fraction, history DVT, chronic respiratory failure requiring treatment with nocturnal BiPAP, HLD, HTN, chronic back pain, [id number] type 2 diabetes, and morbid obesity admitted for atrial flutter with rvr. #Atrial flutter with RVR -last echo 02/15 without evidence of thrombus -given 5 mg IV Lopressor in the ED, rate 90-110 currently -continue amiodarone -continue diltiazem 240 mg daily and metoprolol 50 mg ER -hold Xarelto in case of cardioversion/dayday -cardiology consult -cardiac diet -magnesium level and TSH pending -monitor on telemetry # heart failure preserved ejection fraction -last echo 02/15 showing normal LV systolic function with EF 55-60% and low normal right ventricular systolic function -CXR with stable interstitial prominence. BNP baseline -continue oral diuretics # hypertension -blood pressure is soft -continue diltiazem and metoprolol, monitor blood pressures closely # chronic respiratory failure requiring nocturnal BiPAP -BiPAP ordered for bedtime use # mood disorder -continue home meds # COPD -no acute exacerbation -continue home inhalers, albuterol p.r.n. # [id number] type 2 diabetes -POC glucose -diabetic diet -Humalog on sliding scale # nicotine dependence -patch for nrt -smoking cessation counseling # morbid obesity -congratulated weight loss efforts thus far -encouraged ongoing weight loss efforts DVT prophylaxis- SCPs, resume xarelto as appropriate Full code Pt requires inpt stay at least 2 midnight for management of aflutter with rvr requiring iv rate control, close cardiac monitoring, and expert consultation. Time Spent With Patient Time: Total time managing care of this patient today ____ minutes. Quality Stroke Does the patient have a stroke diagnosis?: No VTE Prior VTE?: Yes VTE Risk Level:: Medical - moderate - high VTE Device Contraindication: Treatment Not Indicated VTE Drug Contraindication: N/A - Med Ordered
[2023-03-15 22:23] LABS: Magnesium 1.9 mg/dL (1.6-2.6)
[2023-03-15 22:44] LABS: TSH reflex Free T4 2.22 uIU/mL (0.32-4.0)
[2023-03-16 01:38] VITALS: BP 113/71; PULSE 108; RESP 20; TEMP 36.6; O2SAT 96
[2023-03-16 04:56] VITALS: BP 107/71; PULSE 118; RESP 18; O2SAT 99
[2023-03-16 05:14] LABS: MANUAL DIFF FLAG NO
[2023-03-16 05:15] LABS: Basophils Percent Auto 0.7 % (0-2); Eosinophils Absolute Auto 0.2 X10*3/uL (0.0-0.4); Eosinophils Percent Auto 3.1 % (0-4); Hematocrit 39.6 % (37.0-47.0); Hemoglobin 12.7 g/dl (12.0-16.0); Imm Gran Abs Auto 0.01 X10*3/uL (0.00-0.03); Imm Gran Pct Auto 0.2 % (0.0-0.4); Lymphocytes Absolute Auto 2.7 X10*3/uL (1.2-4.9); Lymphocytes Percent Auto 46.5 % (20-40); Mean Corpuscular HGB Conc 32.1 g/dl (31.0-35.0); Mean Corpuscular Hemoglobin 28.6 pg (27.0-33.0); Mean Corpuscular Volume 89.2 fL (80.0-98.0); Mean Platelet Volume 9.8 fL (9.4-12.3); Monocytes Absolute Auto 0.5 X10*3/uL (0.1-1.2); Monocytes Percent Auto 8.6 % (2-11); Neutrophils Absolute Auto 2.3 x10*3/uL (2.0-8.3); Neutrophils Percent Auto 40.9 % (45-73); Platelet Count 175 X10*3/uL (160-400); Red Blood Count 4.44 X10*6/uL (4.20-5.50); Red Cell Distribution Width 16.4 % (11.0-16.0); White Blood Count 5.7 X10*3/uL (4.8-10.8)
[2023-03-16 05:32] LABS: Anion Gap 12 (12-20); Blood Urea Nitrogen 11 mg/dL (9-16); Calcium 9.6 mg/dL (8.4-10.2); Carbon Dioxide 27 mmol/L (22-29); Chloride 107 mmol/L (96-108); Creatinine Clr Calc Pharmacy 89.2; Estimated Glomerular Filt Rate > 60; Glucose Random 137 mg/dL (60-115); Potassium 3.8 mmol/L (3.3-5.1); Sodium 142 mmol/L (135-145)
[2023-03-16 07:10] LABS: Glucose, Whole Blood 106 mg/dL (60-115)
[2023-03-16 07:18] VITALS: BP 102/70; PULSE 101; RESP 16; TEMP 36.4; O2SAT 94
--- NOTE | 2023-03-16 07:33 | PHA.MEDREC ---
Pharmacy Consult ? Medication Reconciliation Pharmacy has completed the medication reconciliation. Spoke to patient, confirmed she is on amiodarone Matty
--- NOTE | 2023-03-16 08:32 | PC.NURSE ---
poc 106; no insulin coverage needed. pt ate 100% breakfast. pt aware of plan of care; denies questions/concerns at this time. call pelaez within reach.
[2023-03-16 08:39] VITALS: BP 122/86; PULSE 108
[2023-03-16] MEDS: Amiodarone HCL 200 MG TABLET PO (08:46)
[2023-03-16] MEDS: Metoprolol Succinate ER 50 MG TAB.ER.24H PO (08:47)
--- NOTE | 2023-03-16 08:48 | PC.NURSE ---
called pharmacy for diltiazem.
[2023-03-16] MEDS: dilTIAZem HCL CD 240 MG CAP.ER.DEG PO (09:08)
[2023-03-16] MEDS: 0.9 % Sodium Chloride Flush 3 ML SYRINGE IVFLUSH (09:09)
--- NOTE | 2023-03-16 09:14 | PC.NURSE ---
pt reporting 04/05 neck/back pain; refusing acetaminophen prn. dr. mccormack notified.
[2023-03-16] MEDS: oxyCODONE HCl Immed Release 5 MG TABLET PO (09:26)
--- NOTE | 2023-03-16 09:27 | P.CONCA_ITS ---
History of Present Illness History of Present Illness Date of Service: 03/16/23 Chief complaint: aflutter w/ rvr Narrative: Patient with many comorbidities including history of COPD, heart failure with preserved ejection fraction, DVT, chronic respiratory failure, nocturnal BiPAP, diabetes, smoking, obesity. It seems that she has been cardioverted before but still reverted back to atrial flutter. She is scheduled to see electrophysiology for consideration of ablation. In the interim, she has also been scheduled for cardioversion next week. In the interim, she has presented to the ER with complaints of headaches and feeling lightheaded for several days. Some palpitations. Today, however she states she feels fine and does not have any symptoms. She does not feel any shortness of breath more than her usual. For medications, she is on a combination of amiodarone, diltiazem, metoprolol. Also on Xarelto. Last dose was yesterday. Currently, she states she feels fine and really does not have any symptoms. Would prefer to go home. Review of Systems Review of Systems: Yes all other systems are reviewed and are negative Constitutional: Constitutional: Reports as per HPI and Reports no additional constitutional complaints Eyes: Eyes: Reports as per HPI and Denies no additional eye complaints ENT: Denies system reviewed and no additional complaints, except as documented and Reports as per HPI Cardiovascular: Cardiovascular: Reports as per HPI, Reports no additional cardiovascular complaints, Denies acrocyanosis, Denies cool extremities, Denies chest pain, Denies leg edema, Denies lightheadedness, Denies palpitations and Denies dyspnea Respiratory: Respiratory: Reports as per HPI, Denies no additional respiratory complaints and Denies dyspnea Gastrointestinal: Gastrointestinal: Reports as per HPI and Denies no additional gastrointestinal complaints Genitourinary: Genitourinary: Reports as per HPI Musculoskeletal: Musculoskeletal: Reports no additional musculoskeletal co mplaints and Reports as per HPI Integumentary/Breasts: Skin/Breast: Reports system reviewed and no additional complaints, except as docu Neurologic: Reports system reviewed and no additional complaints, except as documented and Reports as per HPI Psychiatric: Psychiatric: Reports no additional psychiatric complaints and Reports as per HPI Endocrine: Endocrine: Reports no additional endocrine complaints, Reports as per HPI and Denies palpitations Hematologic/Lymphatic: Hematologic/Lymphatic: Reports no additional hematologic/lymphatic complaints and Reports as per HPI Allergic/Immunologic: Allergic/Immunologic: Reports no additional allergic/immunologic complaints and Reports as per HPI [facility] Past Medical History Medical History Arthritis COPD (chronic obstructive pulmonary disease) Diabetes Disc disorder of cervical region Disc disorder of lumbar region DVT of axillary vein, acute HLD (hyperlipidemia) HTN (hypertension) Scoliosis Family History Family History Father Stroke Other Diabetes Surgical History Surgical History Previous back surgery Status post knee replacement Social History Social History Household Members: Family Household Members Other:: daughter Housing: Apartment Do you presently have visiting nurse or other home services: Yes Alcohol intake: never Patient Tobacco Use Status: Current everyday Tobacco user Tobacco use type: Cigarette Cigarette Packs Per Day: 1.5 Cigarettes Per Day: 20 Years Smoked: 40 +/- Second Hand Smoke Exposure: No Advance Directives: Yes Advance Directives Information Provided: No Advance Directives on File: No Advance Directives Date on File: 11/24/21 service: No Meds Allergies Allergy/AdvReac Type Severity Reaction Status Date / Time adhesive Allergy Rash Verified 09/29/22 14:58 Active Medications: Current Medications Acetaminophen (Acetaminophen 325 Mg Tablet) 650 mg PO Q6H PRN PRN Reason: Pain, Mild (Pain Scale 1-3) Amiodarone HCl (Amiodarone Hcl 200 Mg Tablet) 200 mg PO DAILY [facility] Last Admin: 03/16/23 08:46 Dose: 200 mg Dextrose (Dextrose 50 % 25 Gm/50 Ml Syringe) 25 gm IVPUSH Q15M PRN; Protocol PRN Reason: per Hypoglycemia Standing Ord. Diltiazem HCl (Diltiazem Hcl Cd 240 Mg Cap.Er.Deg) 240 mg PO DAILY [facility]; Protocol Last Admin: 03/16/23 09:08 Dose: 240 mg Docusate Sodium (Docusate Sodium 100 Mg Capsule) 100 mg PO DAILY PRN PRN Reason: Constipation Glucose (Glucose Gel 15 Gm Gel..Gram.) 15 gm PO Q15M PRN; Protocol PRN Reason: per Hypoglycemia Standing Ord. Insulin Human Lispro (Insulin Lispro 100 Unit/Ml 3 Ml Vial) 0 unit SUBCUT QIDACHS [facility]; Protocol Last Admin: 03/16/23 07:17 Dose: Not Given Lamotrigine (Lamotrigine 100 Mg Tablet) 200 mg PO BEDTIME [facility] Metoprolol Succinate (Metoprolol Succinate Er 50 Mg Tab.Er.24h) 50 mg PO DAILY [facility]; Protocol Last Admin: 03/16/23 08:47 Dose: 50 mg Nicotine (Nicotine 14 Mg Patch.Td24) 14 mg TRANSDERMA DAILY [facility] Last Admin: 03/16/23 08:47 Dose: Not Given Ondansetron HCl (Ondansetron Hcl 4 Mg/2 Ml Vial) 4 mg IVPUSH Q8H PRN PRN Reason: Nausea and Vomiting Pharmacy Consult (Consult Rx Perform Med Rec) 1 each MISCELLANE ONCE PRN PRN Reason: Consult order Sodium Chloride (0.9 % Sodium Chloride Flush 3 Ml Syringe) 3 ml IVFLUSH QSHIFT [facility] Last Admin: 03/16/23 09:09 Dose: 3 ml Home Medications Medication Instructions Recorded Confirmed Last Taken Type albuterol sulfate 90 mcg/actuation 2 puff inhalation Q4-6H PRN 11/24/21 03/16/23 02/19/23 History aerosol inhaler Respiratory Distress duloxetine 40 mg capsule,delayed 40 mg PO DAILY 11/24/21 03/16/23 02/19/23 History release sprinkle duloxetine 60 mg capsule,delayed 60 mg PO DAILY 11/24/21 03/16/23 02/19/23 History release loratadine 10 mg tablet 10 mg PO DAILY 11/24/21 03/16/23 02/19/23 History penicillin V potassium 250 mg 250 mg PO BID 11/24/21 03/16/23 02/19/23 History tablet rosuvastatin 10 mg tablet 10 mg PO DAILY 11/24/21 03/16/23 02/19/23 History nitrofurantoin 100 mg PO BID 12/31/21 03/16/23 02/19/23 History monohydrate/macrocrystals 100 mg capsule ropinirole 0.5 mg tablet 0.5 mg PO TID 05/01/22 03/16/23 02/19/23 History budesonide-formoterol HFA 80 2 puff inhalation BID 09/29/22 03/16/23 02/19/23 History mcg-4.5 mcg/actuation aerosol inhaler (Symbicort) clonidine HCl 0.1 mg tablet 0.1 mg PO BID PRN Anxiety 02/05/23 03/16/23 02/19/23 History cyclobenzaprine 5 mg tablet 5 mg PO BEDTIME PRN muscle spasm 02/05/23 03/16/23 02/19/23 History ipratropium bromide 21 mcg (0.03 2 spray intranasal BID PRN Allergy 02/05/23 03/16/23 02/19/23 History %) nasal spray Symptoms lamotrigine 200 mg tablet 200 mg PO BEDTIME 02/05/23 03/16/23 02/19/23 History lamotrigine 25 mg tablet 50 mg PO BEDTIME 02/05/23 03/16/23 02/19/23 History nicotine 21 mg/24 hr daily 21 mg transdermal DAILY PRN 02/19/23 03/16/23 02/19/23 History transdermal patch Nicotine Cravings Physical Exam Vital Signs: Vital Signs: Last Vital Signs Temp 97.6 F 03/16/23 07:18 Pulse 108 H 03/16/23 08:39 Resp 16 03/16/23 07:18 BP 122/86 03/16/23 08:39 Pulse Ox 94 03/16/23 07:18 O2 Del Method Room Air 03/16/23 07:18 BMI result Body Mass Index 44.0 Const: General: comfortable and no acute distress Orientation/consciousness: patient oriented x3 HEENT: Other: Unremarkable Head: Yes normal to inspection Neck: Neck: Yes normal visual inspection Chest: Chest palpation & inspection: normal inspection of the chest Resp: Auscultation: wheezes and diminished lung sounds Cardio: Palpation: normal PMI Heart sounds: S1 normal heart sound present, S2 normal heart sound present, no gallops, no murmurs and no rubs GI: Palpation (GI): Soft to palpation Back/Spine/Pelvis: Other: unremarkable Skin: General skin exam: no rashes or lesions noted Neuro: General: patient oriented x3 Extrem: General: Yes normal to inspection Psych: Mental Status: mental status grossly normal Objective Labs and Meds 03/16/23 05:08 03/16/23 05:08 Lab results: Laboratory Results - last 24 hr 03/15/23 03/15/23 03/15/23 19:12 19:12 19:12 WBC 6.8 RBC 4.49 Hgb 13.1 Hct 39.7 MCV 88.4 MCH 29.2 MCHC 33.0 RDW 16.3 H Plt Count 170 MPV 9.3 L Immature Gran % (Auto) 0.9 H Neut % (Auto) 41.9 L Lymph % (Auto) 44.2 H Twiggs % (Auto) 9.5 Eos % (Auto) 2.8 Baso % (Auto) 0.7 Lymph # (Auto) 3.0 Tw[place]gs # (Auto) 0.7 Eos # (Auto) 0.2 Baso # (Auto) 0.1 Abs Immat Gran (auto) 0.06 H Absolute Neuts (auto) 2.9 Absolute Nucleated RBC 0.000 Nucleated RBC % (auto) 0.0 PT 23.3 H INR 1.9 H APTT 36.6 H Sodium 143 Potassium 3.9 Chloride 107 Carbon Dioxide 27 Anion Gap 13 BUN 9 Creatinine 0.77 Estim Creat Clear Calc 94.9 Estimated GFR > 60 POC Glucose Random Glucose 120 H Calcium 9.6 Magnesium 1.9 Total Bilirubin 0.5 AST 15 ALT 12 Alkaline Phosphatase 82 Troponin I High Sens B-Natriuretic Peptide Total Protein 6.7 Albumin 3.4 L TSH 2.22 COVID-19 (REMA) COVID-19 [email or web address] 03/15/23 03/15/23 03/15/23 19:12 19:12 19:27 WBC RBC Hgb Hct MCV MCH MCHC RDW Plt Count MPV Immature Gran % (Auto) Neut % (Auto) Lymph % (Auto) Twiggs % (Auto) Eos % (Auto) Baso % (Auto) Lymph # (Auto) Twiggs # (Auto) Eos # (Auto) Baso # (Auto) Abs Immat Gran (auto) Absolute Neuts (auto) Absolute Nucleated RBC Nucleated RBC % (auto) PT INR APTT Sodium Potassium Chloride Carbon Dioxide Anion Gap BUN Creatinine Estim Creat Clear Calc Estimated GFR POC Glucose Random Glucose Calcium Magnesium Total Bilirubin AST ALT Alkaline Phosphatase Troponin I High Sens 4.4 D B-Natriuretic Peptide 171 H Total Protein Albumin TSH COVID-19 (REMA) Negative COVID-19 [facility] Com See Note 03/16/23 03/16/23 03/16/23 05:08 05:08 07:07 WBC 5.7 RBC 4.44 Hgb 12.7 Hct 39.6 MCV 89.2 MCH 28.6 MCHC 32.1 RDW 16.4 H Plt Count 175 MPV 9.8 Immature Gran % (Auto) 0.2 Neut % (Auto) 40.9 L Lymph % (Auto) 46.5 H Twiggs % (Auto) 8.6 Eos % (Auto) 3.1 Baso % (Auto) 0.7 Lymph # (Auto) 2.7 Twiggs # (Auto) 0.5 Eos # (Auto) 0.2 Baso # (Auto) 0.0 Abs Immat Gran (auto) 0.01 Absolute Neuts (auto) 2.3 Absolute Nucleated RBC 0.000 Nucleated RBC % (auto) 0.0 PT INR APTT Sodium 142 Potassium 3.8 Chloride 107 Carbon Dioxide 27 Anion Gap 12 BUN 11 Creatinine 0.82 Estim Creat Clear Calc 89.2 Estimated GFR > 60 POC Glucose 106 Random Glucose 137 H Calcium 9.6 Magnesium Total Bilirubin AST ALT Alkaline Phosphatase Troponin I High Sens B-Natriuretic Peptide Total Protein Albumin TSH COVID-19 (REMA) COVID-19 Clin Com ECG Interpretation: EKG shows atrial flutter with controlled ventricular rate at 90/Min. On te lemetry rate is around 100/Min. Imaging Radiologist's impression: Impressions Chest X-Ray 03/15/23 19:16 IMPRESSION: 1. Slight bronchial thickening which can be seen in setting of infectious/inflammatory etiology. 2. Stable interstitial prominence. Head CT 03/15/23 19:23 IMPRESSION: No CT evidence of any acute intracranial pathology, unchanged since 01/02/2023. Assessment and Plan (1) Atrial flutter with rapid ventricular response: Status: Acute (2) Chronic respiratory failure requiring treatment with nocturnal BPAP by mask: Status: Acute (3) Morbid obesity: Status: Acute Plan Per last transesophageal echocardiogram, LVEF 55-60%. Described to have low normal right ventricular systolic function. [id number] aortic regurgitation Currently, in atrial flutter with slightly rapid rate at about 100/Min. However, this is actually less than the last office visit few days ago when her rate was 116/Min. Automated QT measurement is just over 500 milliseconds but difficult to measure this as patient is in flutter. Overall, no changes in medical therapy for now. She is already on a combination of amiodarone, metoprolol and diltiazem. Also on Xarelto. Can keep these unchanged. High sensitivity troponins are unremarkable. Cardiac BNP is actually less than before. We can keep the cardioversion appointment for next week as planned. Compliance with BiPAP encouraged. Smoking cessation. d/w . Time Spent With Patient Time: Total time managing care of this patient today ____ minutes. Procedures Date of Service Date of Service: 03/16/23
--- NOTE | 2023-03-16 10:21 | MHC.CM.PN ---
Patient has been medically cleared for dc to home today, self care. CM met with Patient in the ED and addressed IMM with her, providing Patient with the original and the copy will be sent down to Medical Records.Patient is waiting for her Daughter to pick her up.
[2023-03-16] MEDS: Rivaroxaban 20 MG TABLET PO (10:28)
--- NOTE | 2023-03-16 14:34 | P.CDIM_ITS ---
PROVIDER RESPONSE TEXT: To clarify, the appropriate diagnosis supported by the clinical indicators: Other (explain): none of the above QUERY TEXT: PHYSICIAN'S DOCUMENTATION REQUEST Date of Query: 03/16/2023 12:25 PM EDT Patient Name: Shruthi Orosco Admit Date: 03/16/2023 Dear Jeny Ervin, A review of the medical record indicates additional documentation may be needed. Please review below and update the documentation accordingly. Clinical indicators: Cardiology note: currently in atrial flutter with slightly rapid rate at about 100/Min. Already on combination of amiodarone, metoprolol and diltiazem also on Xarelto. Dx: Atrial flutter with rapid ventricular response If possible, please provide further specificity regarding atrial flutter, such as: Typical atrial flutter - Type I: Classic or common atrial flutter. Rate is 240-340 beats/min. Usually responds to atrial pacing. Atypical atrial flutter - Type II: Less common and more unstable. Rate is 340-440 beats/min. Less res ponsive to atrial pacing. Other (explain)Clinically unable to determine (explain)Thank you, Karen Samuels, CCS, CDIS Use of terms such as suspected, likely, concern for, or probable (associated with a specific diagnosi s that is being evaluated, monitored, or treated as if it exists) are acceptable and can be coded in the inpatient se tting, when documented at the time of discharge. Please use your independent medical judgment in providing your response. THIS QUERY IS PART OF THE PERMANENT MEDICAL RECORD
--- NOTE | 2023-03-17 16:38 | PM.DS ---
DS: Providers Provider Date of Service: 03/17/23 Date of admission: 03/15/23 22:02 Primary care physician: Kyle Ahumada DO Consults: 03/15/23 22:02 Consult to Cardiology Routine Consulting Provider: [facility] Reason for consultation: aflutter rvr Has provider been notified: Yes DS: Diagnosis Discharge Diagnosis (1) Atrial flutter with rapid ventricular response: Status: Acute (2) Chronic respiratory failure requiring treatment with nocturnal BPAP by mask: Status: Acute (3) Morbid obesity: Status: Acute DS: Summary Hospital Course Hospital Course: Date of Service: 03/15/23 Attending physician on admission: Yong Welch Chief Complaint: diaphoresis, palpitations 57-year-old female past medical history of a flutter, COPD, heart failure with preserved ejection fraction, history DVT, chronic respiratory failure requiring treatment with nocturnal BiPAP, HLD, HTN, chronic back pain, [id number] type 2 diabetes, and morbid obesity presented to the ED for evaluation of headaches, intermittent lightheadedness ongoing for several days and an episode of left-sided chest tightness with palpitation earlier today prompting her to contact EMS.? She has also had increased bilateral lower extremity edema.? Denies any shortness of breath.? She has undergone cardioversion several times and follows routinely with Dr. Orozco on amiodarone therapy as well as Cardizem and metoprolol for her atrial flutter.? Cardiology is planning for ablation but this is not yet scheduled.? On arrival, patient tachycardic to 112, was 132 per EMS.? No hypotension.? Chest x-ray showing slight bronchial thickening and stable interstitial prominence.? Head CT ordered given recent fall without loss of consciousness is negative for any acute intracranial pathology.? EKG showed atrial flutter with variable AV block, rate 90 without acute ischemia.? In the ED, given 5 mg IV Lopressor with improvement in heart rate varying 90-112.? She was also given oxycodone 5 mg for low back pain. hospital course: 57-year-old female past medical history of a flutter, COPD, heart failure with preserved ejection fraction, history DVT, chronic respiratory failure requiring treatment with nocturnal BiPAP, HLD, HTN, chronic back pain, [id number]-[id number] type 2 diabetes, and morbid obesity admitted for atrial flutter with rvr, patient treated in the emergency room with IV Lopressor heart rate improved to 9 T2 100 range she was continued on amiodarone diltiazem and Xarelto patient evaluated by rn social work Dr. Mendez recommend to discharge patient home since she is scheduled to have outpatient cardioversion by his primary rn social work Dr. Orozco patient noted to have normal TSH, electrolytes and magnesium. patient recommended to have outpatient follow-up with Cardiology, in regard to heart failure patient noted to have no acute exacerbation chest x-ray showed no interstitial prominence BNP at baseline, patient was treated with 1 dose of oxycodone for back pain, in regard to all other chronic medical issues she has been recommended to continue all home medications. Time Spent with Patient Time attestation: Total time managing care of this patient today ____ minutes. Discharge coordination time: Greater than 30 minutes Quality: Safe Use of Opioids Does Pt have an Active Cancer Diagnosis on the Problem List?: No Quality: Stroke Does the patient have a stroke diagnosis?: No Physical Exam Vital Signs: Vital Signs: Last Vital Signs Temp 97.6 F 03/16/23 07:18 Pulse 108 H 03/16/23 08:39 Resp 16 03/16/23 07:18 BP 122/86 03/16/23 08:39 Pulse Ox 94 03/16/23 07:18 O2 Del Method Room Air 03/16/23 07:18 BMI result Body Mass Index 44.0 Const: Other: Gen: in no acute distress HEENT: sclera anicteric, moist mucus membranes Neck: supple Lungs: clear to auscultation bilaterally Heart: regular, rapid (in atrial flutter) Abd: soft, non-tender, non-distended, morbid obesity Ext: no edema Skin: warm/well-perfused Neuro: alert and oriented x3, no focal findings Psych: appropriate affect DS: Data Data Completed and Pending Completed studies during hospitalization [Text1]: Procedures Assistance with Respiratory Ventilation, Less than 24 Consecutive Hours, Continuous Positive Airway Pressure (02/06/23) Cheondoism of Cardiac Rhythm, Single (02/06/23) Ultrasonography of Heart with Aorta, Transesophageal (02/06/23) Discharge Plan Discharge Anticipated Discharge Date/Time: 03/16/23 09:39 Patient Disposition: Home, Self-Care Discharge Diagnosis: atrial flutter with RVR Referrals: Kyle Ahumada DO [Primary Care Provider] - 1 Week Discharge Medications: Continued metoprolol succinate 50 mg tablet extended release 24 hr 50 mg PO BID 90 Days Qty: 180 3RF Protocol: Hold for SBP/HR < HOLD for SBP < : 90 HOLD for HR < : 60 Rx Instructions: Replaces prior dose of 75 mg twice daily penicillin V potassium 250 mg Tablet 250 mg PO BID albuterol sulfate 90 mcg/actuation Hfa Aerosol Inhaler 2 puff INHALATION Q4-6H PRN (Reason: Respiratory Distress) loratadine 10 mg Tablet 10 mg PO DAILY rosuvastatin 10 mg Tablet 10 mg PO DAILY duloxetine 60 mg Capsule,Delayed Release(Dr/Ec) 60 mg PO DAILY Rx Instructions: TAKE WITH 40MG duloxetine 40 mg Capsule, Delayed Rel Sprinkle 40 mg PO DAILY Rx Instructions: TAKE WITH 60MG nitrofurantoin monohyd/m-cryst 100 mg capsule 100 mg PO BID lamotrigine 200 mg tablet 200 mg PO BEDTIME Rx Instructions: TAKE WITH 50MG lamotrigine 25 mg tablet 50 mg PO BEDTIME Rx Instructions: TAKE WITH 200MG clonidine HCl 0.1 mg tablet 0.1 mg PO BID PRN (Reason: Anxiety) ipratropium bromide 21 mcg (0.03 %) spray,non-aerosol 2 spray intranasal BID PRN (Reason: Allergy Symptoms) cyclobenzaprine 5 mg tablet 5 mg PO BEDTIME PRN (Reason: muscle spasm) Xarelto 20 mg Tablet 20 mg PO DAILY Qty: 30 0RF Rx Instructions: Replaces warfarin furosemide 40 mg tablet 40 mg PO DAILY Qty: 30 0RF nicotine 21 mg/24 hr patch 24 hour 21 mg transdermal DAILY PRN (Reason: Nicotine Cravings) amiodarone 200 mg Tablet 200 mg PO DAILY Qty: 14 0RF diltiazem HCl [Cardizem CD] 240 mg capsule,extended release 24hr 240 mg PO DAILY Qty: 30 0RF ropinirole 0.5 mg tablet 0.5 mg PO TID budesonide-formoterol [Symbicort] 80-4.5 mcg/actuation HFA aerosol inhaler 2 puff inhalation BID Discharge Orders: Discharge Order (Routine); Ordered 03/16/23 Ordered By: Jeny Ervin Diet: Low fat, low cholesterol Activity on Discharge: As tolerated Stand Alone Forms: Patient Portal Discharge page Care Plan Goals: atrial fibrillation with RVR continue all home medications including Xarelto and follow up with Cardiology Health Concerns: copd/back pain Plan of Treatment: outpatient follow-up with Cardiology for scheduled cardioversion, outpatient follow-up with PCP Assessment: as above Discharge Date/Time: 03/16/23 14:06
== END 2023-03-16 14:06 | disposition home or self-care (01) | DRG 292 ==
LOC: HO.ED 19:05 → HO.EDOVER 22:18
PROVIDERS: Student in an Organized Health Care Education/Training Program; Admitting Provider Physician Assistant; Emergency Provider Internal Medicine; PCP Family Medicine; Visit Provider Hospitalist
DX: I11.0 Hypertensive heart disease with heart failure (principal); I48.92 Unspecified atrial flutter; J96.10 Chronic respiratory failure, unspecified whether with hypoxia or hypercapnia; Z68.41 Body mass index [BMI] 40.0-44.9, adult; E66.01 Morbid (severe) obesity due to excess calories; I50.32 Chronic diastolic (congestive) heart failure; E11.9 Type 2 diabetes mellitus without complications; I35.1 Nonrheumatic aortic (valve) insufficiency; F17.210 Nicotine dependence, cigarettes, uncomplicated; J44.9 Chronic obstructive pulmonary disease, unspecified; Z20.822 Contact with and (suspected) exposure to COVID-19; Z86.718 Personal history of other venous thrombosis and embolism; Z71.6 Tobacco abuse counseling; Z79.01 Long term (current) use of anticoagulants; Z79.899 Other long term (current) drug therapy
CPT/HCPCS: 36415; 70450; 71045; 80048; 80053; 82947; 83735; 83880; 84443; 84484; 85025; 85610; 85730; 87635; 93005; 99284

== ENCOUNTER → 2023-03-15 22:02 | Outpatient (BNV) | payer OTHER, SELFPAY | PROVIDERS: Admitting Provider Physician Assistant; Emergency Provider Internal Medicine; PCP Family Medicine; Visit Provider Physician Assistant | DX: I48.92 Unspecified atrial flutter (principal); J96.10 Chronic respiratory failure, unspecified whether with hypoxia or hypercapnia; E66.01 Morbid (severe) obesity due to excess calories; Z68.41 Body mass index [BMI] 40.0-44.9, adult; Z99.89 Dependence on other enabling machines and devices | CPT/HCPCS: 99223; 99239 ==

== ENCOUNTER → 2023-03-15 22:02 | Outpatient (BNV) | payer OTHER, SELFPAY | PROVIDERS: Admitting Provider Physician Assistant; Emergency Provider Internal Medicine; PCP Family Medicine; Visit Provider Internal Medicine | DX: I48.92 Unspecified atrial flutter (principal); J96.10 Chronic respiratory failure, unspecified whether with hypoxia or hypercapnia; Z99.89 Dependence on other enabling machines and devices; E66.01 Morbid (severe) obesity due to excess calories | CPT/HCPCS: 99222 ==

== ENCOUNTER 2023-03-24 10:34 | Day surgery (SDC) | payer OTHER, SELFPAY ==
--- NOTE | 2023-03-23 09:24 | HO.ANESPROP2 ---
Documented by User: Alma Delia Hobbs NP 03/23/23 09:27 HPI - Anesthesia Eval Consult details Narrative: 57yo F for Cardioversion Xarelto for afib s/p DANIELLE/Cardioversion 01/2023 with [facility] PMF[facility] Active Problems Active Problems: All Active Problems (Updated 03/18/23 @ 00:03 by Background Katherine) Chronic respiratory failure (Acute) Right heart failure (Acute) Atrial flutter with rapid ventricular response (Acute) Atrial flutter (Acute) Acute exacerbation of chronic obstructive pulmonary disease (Acute) History of total right knee replacement (Acute) Preop cardiovascular exam (Acute) Echocardiogram findings abnormal, without diagnosis (Acute) Diabetes (Acute) HLD (hyperlipidemia) (Acute) HTN (hypertension) (Acute) Atrial flutter (Acute) Chronic back pain (Acute) Past Medical History Medical History (Updated 03/24/23 @ 11:00 by Luiza Olson RN) History of cardioversion Leg edema Chronic respiratory failure requiring treatment with nocturnal BPAP by mask Morbid obesity Diabetes HLD (hyperlipidemia) HTN (hypertension) DVT of axillary vein, acute Arthritis Scoliosis Disc disorder of cervical region Disc disorder of lumbar region COPD (chronic obstructive pulmonary disease) Family History Family History Father Stroke Other Diabetes Surgical History Surgical History (Updated 03/24/23 @ 11:02 by Luiza Olson RN) History of prolapse of bladder Hx of abdominoplasty History of partial hysterectomy Hx of esophagogastroduodenoscopy Hx of gastric bypass Status post knee replacement Previous back surgery History of Problems with Anesthesia: Yes Social History Household Members: Family Household Members Other:: daughter Housing: Apartment Do you presently have visiting nurse or other home services: Yes Alcohol intake: never Patient Tobacco Use Status: Current everyday Tobacco user Tobacco use type: Cigarette Cigarette Packs Per Day: 1.5 Cigarettes Per Day: 20 Years Smoked: 40 +/- Second Hand Smoke Exposure: No Advance Directives Date on File: 11/24/21 service: No Meds Allergies Allergy/AdvReac Type Severity Reaction Status Date / Time adhesive Allergy Rash Verified 09/29/22 14:58 Home Medications Medication Instructions Recorded Confirmed Last Taken Type albuterol sulfate 90 mcg/actuation 2 puff inhalation Q4-6H PRN 11/24/21 03/24/23 03/21/23 History aerosol inhaler Respiratory Distress duloxetine 40 mg capsule,delayed 40 mg PO DAILY 11/24/21 03/24/23 03/23/23 History release sprinkle duloxetine 60 mg capsule,delayed 60 mg PO DAILY 11/24/21 03/24/23 03/23/23 History release loratadine 10 mg tablet 10 mg PO DAILY 11/24/21 03/24/23 03/23/23 History penicillin V potassium 250 mg 250 mg PO BID 11/24/21 03/24/23 03/23/23 History tablet rosuvastatin 10 mg tablet 10 mg PO DAILY 11/24/21 03/24/23 03/23/23 History nitrofurantoin 100 mg PO BID 12/31/21 03/24/23 03/23/23 History monohydrate/macrocrystals 100 mg capsule ropinirole 0.5 mg tablet 0.5 mg PO TID 05/01/22 03/24/23 03/23/23 History budesonide-formoterol HFA 80 2 puff inhalation BID 09/29/22 03/24/23 03/21/23 History mcg-4.5 mcg/actuation aerosol inhaler (Symbicort) clonidine HCl 0.1 mg tablet 0.1 mg PO BID PRN Anxiety 02/05/23 03/24/23 03/17/23 History cyclobenzaprine 5 mg tablet 5 mg PO BEDTIME PRN muscle spasm 02/05/23 03/24/23 03/23/23 History ipratropium bromide 21 mcg (0.03 2 spray intranasal BID PRN Allergy 02/05/23 03/24/23 03/21/23 History %) nasal spray Symptoms lamotrigine 200 mg tablet 200 mg PO BEDTIME 02/05/23 03/24/23 03/23/23 History lamotrigine 25 mg tablet 50 mg PO BEDTIME 02/05/23 03/24/23 03/23/23 History nicotine 21 mg/24 hr daily 21 mg transdermal DAILY PRN 02/19/23 03/24/23 03/17/23 History transdermal patch Nicotine Cravings Exam Exam Date and Time: March 23, 2023923 Pertinent Lab Results Pertinent Lab Results: Laboratory Tests 03/16/23 03/16/23 05:08 05:08 WBC 5.7 RBC 4.44 Hgb 12.7 Hct 39.6 Plt Count 175 Sodium 142 Potassium 3.8 Chloride 107 Carbon Dioxide 27 BUN 11 Creatinine 0.82 Narrative Narrative: EKG 02/2023 Vent. Rate : 090 BPM ? ? Atrial Rate : 242 BPM ?? P-R Int : 000 ms? QRS Dur : 092 ms ? ? QT Int : 416 ms ? ? ? P-R-T Axes : 000 015 071 degrees ?? QTc Int : 508 ms ? Atrial flutter with variable A-V block Low voltage QRS Right bundle branch block Abnormal ECG When compared with ECG of 27-FEB-2023 18:33, Vent. rate has decreased DANIELLE 01/2023 Conclusion: ??? Normal left ventricular size and systolic function. The? visually estimated ejection fraction is between 55-60%.? Normal right ventricular cavity size.? There is low normal ? ? right ventricular systolic function. ? There is no evidence of a thrombus in the left atrial? appendage. ? Assessment and Plan Assessment Anesthesia Assessment: Chart Reviewed Final Anesthetic Review History of Problems with Anesthesia: Yes Documented by User: Jose Jackson MD 06/18/23 19:56 [facility] Past Medical History Medical History (Updated 03/24/23 @ 11:00 by Luiza Olson RN) History of cardioversion Leg edema Chronic respiratory failure requiring treatment with nocturnal BPAP by mask Morbid obesity Diabetes HLD (hyperlipidemia) HTN (hypertension) DVT of axillary vein, acute Arthritis Scoliosis Disc disorder of cervical region Disc disorder of lumbar region COPD (chronic obstructive pulmonary disease) Family History Family History Father Stroke Other Diabetes Family history of problems with anesthesia: No Surgical History Surgical History (Updated 03/24/23 @ 11:02 by Luiza Olson RN) History of prolapse of bladder Hx of abdominoplasty History of partial hysterectomy Hx of esophagogastroduodenoscopy Hx of gastric bypass Status post knee replacement Previous back surgery History of Problems with Anesthesia: No Social History Household Members: Family Household Members Other:: daughter Housing: Apartment Do you presently have visiting nurse or other home services: Yes Alcohol intake: never Patient Tobacco Use Status: Current everyday Tobacco user Tobacco use type: Cigarette Cigarette Packs Per Day: 1.5 Cigarettes Per Day: 20 Years Smoked: 40 +/- Second Hand Smoke Exposure: No Advance Directives Date on File: 11/24/21 service: No Meds Allergies Allergy/AdvReac Type Severity Reaction Status Date / Time adhesive Allergy Rash Verified 09/29/22 14:58 Home Medications Medication Instructions Recorded Confirmed Last Taken Type albuterol sulfate 90 mcg/actuation 2 puff inhalation Q4-6H PRN 11/24/21 03/24/23 03/21/23 History aerosol inhaler Respiratory Distress duloxetine 40 mg capsule,delayed 40 mg PO DAILY 11/24/21 03/24/23 03/23/23 History release sprinkle duloxetine 60 mg capsule,delayed 60 mg PO DAILY 11/24/21 03/24/23 03/23/23 History release loratadine 10 mg tablet 10 mg PO DAILY 11/24/21 03/24/23 03/23/23 History penicillin V potassium 250 mg 250 mg PO BID 11/24/21 03/24/23 03/23/23 History tablet rosuvastatin 10 mg tablet 10 mg PO DAILY 11/24/21 03/24/23 03/23/23 History nitrofurantoin 100 mg PO BID 12/31/21 03/24/23 03/23/23 History monohydrate/macrocrystals 100 mg capsule ropinirole 0.5 mg tablet 0.5 mg PO TID 05/01/22 03/24/23 03/23/23 History budesonide-formoterol HFA 80 2 puff inhalation BID 09/29/22 03/24/23 03/21/23 History mcg-4.5 mcg/actuation aerosol inhaler (Symbicort) clonidine HCl 0.1 mg tablet 0.1 mg PO BID PRN Anxiety 02/05/23 03/24/23 03/17/23 History cyclobenzaprine 5 mg tablet 5 mg PO BEDTIME PRN muscle spasm 02/05/23 03/24/23 03/23/23 History ipratropium bromide 21 mcg (0.03 2 spray intranasal BID PRN Allergy 02/05/23 03/24/23 03/21/23 History %) nasal spray Symptoms lamotrigine 200 mg tablet 200 mg PO BEDTIME 02/05/23 03/24/23 03/23/23 History lamotrigine 25 mg tablet 50 mg PO BEDTIME 02/05/23 03/24/23 03/23/23 History nicotine 21 mg/24 hr daily 21 mg transdermal DAILY PRN 02/19/23 03/24/23 03/17/23 History transdermal patch Nicotine Cravings Exam Airway Mallampati Class: IV Loose/Missing/Broken Teeth: Yes Assessment and Plan Assessment Anesthesia Assessment: Anesthesia Plan Discussed Final Anesthetic Review Family History of Problems with Anesthesia: No History of Problems with Anesthesia: No NPO: Yes ASA Class: III Final Preanesthetic Review: Meds/Allgs Chart Reviewed, Consent Obtained/Reviewed and Anes Risks/Benef Reviewed Patient Risk: Intermediate Procedure Risk: Intermediate Anesthetic Plan Anesthetic Plan: MAC: and Agree w/ Assess. and Plan Disposition: Standard PACU
[2023-03-24] VITALS (8 sets, daily range): BP systolic 90–113; BP diastolic 46–83; PULSE 57–113; RESP 18–24; TEMP 36.1–36.9; O2SAT 95–99; BMI 44.0
--- NOTE | 2023-03-24 | ECG_ITS ---
Test Reason : S/P CARDIOVERSION Blood Pressure : / mmHG Vent. Rate : 059 BPM Atrial Rate : 059 BPM P-R Int : 170 ms QRS Dur : 088 ms QT Int : 466 ms P-R-T Axes : 040 036 060 degrees QTc Int : 461 ms Sinus bradycardia with sinus arrhythmia Otherwise normal ECG When compared with ECG of 15-MAR-2023 19:04, Sinus rhythm has replaced Atrial flutter Vent. rate has decreased BY [address] no longer elevated in Inferior leads Nonspecific T wave abnormality no longer evident in Lateral leads QT has shortened Referred By: Jordan Orozco Electronically Signed By:SHIV BROOKS
[2023-03-24] MEDS: Albuterol Sulfate (0.083%) 2.5 MG/3 ML VIAL.NEB INHALE (11:10)
[2023-03-24] MEDS: Lactated Ringers 1,000 ML 50 ML IVCONT (11:31)
--- NOTE | 2023-03-24 11:56 | MHC.SHP ---
Pre-Procedural Eval Section A Date of Service: 03/24/23 The patient is an INPATIENT: No The History & Physical has been completed within 30 days and I have reviewed it.: Yes Section B Chief Complaint: Unspecified atrial flutter Details of Present Illness: Here for cardioversion Allergies: Allergies Allergy/AdvReac Type Severity Reaction Status Date / Time adhesive Allergy Rash Verified 09/29/22 14:58 Plan Diagnosis/Plan: Unchanged I have reviewed the history and physical and performed a pertinent physical examination on my patient. No changes have occurred unless specified. Time Spent With Patient Time: Total time managing care of this patient today ____ minutes.
--- NOTE | 2023-03-24 12:23 | HO.CARDIVERS ---
Cardioversion Procedure Note Cardioversion Date of Procedure: 03/24/23 Ordering Provider: Jordan Orozco Performing Provider: Jordan Orozco Indication for Procedure: Atrial flutter Performed with Transesophageal Echo: No Consent: Verbal and Written consent was obtained from the patient before starting. The patient was made aware of the risk of stroke, aspiration and skin irritation. Procedure: After consent obtained, defib pads were attached and the patient was sedated by the anesthesia team. Once adequate sedation achieved, single synchronized shock of 100 J was given which converted the patient to sinus rhythm. Complications: None Recommendations: c/w Amiodarone, Toprol and Diltiazem. c/w Apixaban. She has been referred to EP for ablation.
== END 2023-03-24 14:05 | disposition home or self-care (01) ==
PROVIDERS: PCP Family Medicine; Visit Provider Internal Medicine Cardiovascular Disease
PROC: 5A2204Z Restoration of Cardiac Rhythm, Single (ICD-10-PCS; principal; 2023-03-24 12:00)
DX: I48.92 Unspecified atrial flutter (principal); Z79.01 Long term (current) use of anticoagulants; I11.0 Hypertensive heart disease with heart failure; I50.30 Unspecified diastolic (congestive) heart failure; J44.9 Chronic obstructive pulmonary disease, unspecified; E11.9 Type 2 diabetes mellitus without complications; L23.1 Allergic contact dermatitis due to adhesives; F17.210 Nicotine dependence, cigarettes, uncomplicated; Z79.51 Long term (current) use of inhaled steroids; Z79.899 Other long term (current) drug therapy
CPT/HCPCS: 92960; 93005; 94640

== ENCOUNTER → 2023-03-24 10:34 | Outpatient (BNV) | payer OTHER, SELFPAY | PROVIDERS: PCP Family Medicine; Visit Provider Internal Medicine Cardiovascular Disease | DX: I48.92 Unspecified atrial flutter (principal) | CPT/HCPCS: 92960 ==

== ENCOUNTER 2023-09-04 02:12 | Emergency (ER) | payer OTHER, SELFPAY ==
[2023-09-04 02:16] VITALS: BP 142/80; PULSE 87; RESP 18; TEMP 36.8; O2SAT 99; BMI 41.8
[2023-09-04 03:20] VITALS: BP 128/71; PULSE 83; RESP 19; O2SAT 96
--- NOTE | 2023-09-04 03:32 | ED_ITS ---
HPI - Back Pain/Injury General Chief Complaint: Back Pain/Injury Stated Complaint: Neck/Shoulder/Back pain -No Inj Time Seen by Provider: 09/04/23 03:31 Source: patient Mode of arrival: ambulatory Limitations: no limitations History of Present Illness HPI Narrative: 57-year-old female with chronic history of back pain for the past 20 years presented for evaluation of whole spine pain, patient seen by multiple spe cialist who all agreed that there is no treatment patient recently seen by a spine doctor in [place] who recommended a big spine surgery to fix her scoliosis, patient needed to quit smoking and lose weight before the surgery came in today for acute on chronic back pain that is been exacerbated for the past 3-4 days, patient declined any fall or injury to the back, patient has no pain medication at home, no new symptoms of weakness or numbness or incontinence. Related Data Home Medications Medication Instructions Recorded Confirmed albuterol sulfate 90 mcg/actuation 2 puff inhalation Q4-6H PRN 11/24/21 03/24/23 aerosol inhaler Respiratory Distress duloxetine 40 mg capsule,delayed 40 mg PO DAILY 11/24/21 03/24/23 release sprinkle duloxetine 60 mg capsule,delayed 60 mg PO DAILY 11/24/21 03/24/23 release loratadine 10 mg tablet 10 mg PO DAILY 11/24/21 03/24/23 penicillin V potassium 250 mg 250 mg PO BID 11/24/21 03/24/23 tablet rosuvastatin 10 mg tablet 10 mg PO DAILY 11/24/21 03/24/23 nitrofurantoin 100 mg PO BID 12/31/21 03/24/23 monohydrate/macrocrystals 100 mg capsule ropinirole 0.5 mg tablet 0.5 mg PO TID 05/01/22 03/24/23 budesonide-formoterol HFA 80 2 puff inhalation BID 09/29/22 03/24/23 mcg-4.5 mcg/actuation aerosol inhaler (Symbicort) clonidine HCl 0.1 mg tablet 0.1 mg PO BID PRN Anxiety 02/05/23 03/24/23 cyclobenzaprine 5 mg tablet 5 mg PO BEDTIME PRN muscle spasm 02/05/23 03/24/23 ipratropium bromide 21 mcg (0.03 2 spray intranasal BID PRN Allergy 02/05/23 03/24/23 %) nasal spray Symptoms lamotrigine 200 mg tablet 200 mg PO BEDTIME 02/05/23 03/24/23 lamotrigine 25 mg tablet 50 mg PO BEDTIME 02/05/23 03/24/23 nicotine 21 mg/24 hr daily 21 mg transdermal DAILY PRN 02/19/23 03/24/23 transdermal patch Nicotine Cravings Previous Rx's Medication Instructions Recorded furosemide 40 mg tablet 40 mg PO DAILY #30 tabs 02/10/23 rivaroxaban 20 mg tablet (Xarelto) 20 mg PO DAILY #30 tabs 02/10/23 diltiazem HCl 240 mg 240 mg PO DAILY #30 caps 02/27/23 capsule,extended release 24 hr (Cardizem CD) amiodarone 200 mg tablet 200 mg PO DAILY #30 tabs 05/05/23 metoprolol succinate 50 mg 50 mg PO BID 30 days #60 tabs 05/05/23 tablet,extended release 24 hr oxycodone 5 mg tablet 5 mg PO BID PRN pain #10 tabs 09/04/23 Allergies Allergy/AdvReac Type Severity Reaction Status Date / Time adhesive Allergy Rash Verified 09/04/23 02:21 Review of Systems Review of Systems: All other systems are reviewed and are negative Constitutional: Reports as per HPI and Reports no additional constitutional complaints Eyes: Reports as per HPI and Reports no additional eye complaints Reports system reviewed and no additional complaints, except as documented Cardiovascular: Reports as per HPI and Reports no additional cardiovascular complaints Respiratory: Reports as per HPI and Reports no additional respiratory complaints Gastrointestinal: Reports as per HPI and Reports no additional gastrointestinal complaints Genitourinary: Reports no additional female genitourinary complaints Musculoskeletal: Reports no additional musculoskeletal complaints Skin/Breast: Reports system reviewed and no additional complaints, except as docu Psychiatric: Reports no additional psychiatric complaints Endocrine: Reports no additional endocrine complaints Hematologic/Lymphatic: Reports no additional hematologic/lymphatic complaints Allergic/Immunologic: Reports no additional allergic/immunologic complaints Reports system reviewed and no additional complaints, except as documented and Reports Abnormal speech present [facility] Past Medical History Medical History History of cardioversion Leg edema Chronic respiratory failure requiring treatment with nocturnal BPAP by mask Morbid obesity Diabetes HLD (hyperlipidemia) HTN (hypertension) DVT of axillary vein, acute Arthritis Scoliosis Disc disorder of cervical region Disc disorder of lumbar region COPD (chronic obstructive pulmonary disease) Surgical History History of prolapse of bladder Hx of abdominoplasty History of partial hysterectomy Hx of esophagogastroduodenoscopy Hx of gastric bypass Status post knee replacement Previous back surgery Family History Family History Father Stroke Other Diabetes Social History Social History Household Members: Family Household Members Other:: daughter Housing: Apartment Do you presently have visiting nurse or other home services: Yes Alcohol intake: never Comment: PT REFUSING ALL SAFTEY AND FALL PRECAUTIONS Patient Tobacco Use Status: Current everyday Tobacco user Tobacco use type: Cigarette Cigarette Packs Per Day: 1.5 Cigarettes Per Day: 20 Years Smoked: 40 +/- Second Hand Smoke Exposure: No Advance Directives: Yes Advance Directives Information Provided: Yes Advance Directives on File: No Advance Directives Date on File: 11/24/21 service: No Physical Exam Vital Signs: Vital Signs: Last Vital Signs Temp 98.2 F 09/04/23 02:16 Pulse 83 09/04/23 03:20 Resp 19 09/04/23 03:20 BP 128/71 09/04/23 03:20 Pulse Ox 96 09/04/23 03:20 O2 Del Method Room Air 09/04/23 03:20 BMI result Body Mass Index 41.8 Vital signs have been reviewed and appear to be correct. Blood pressure elevated. Heart rate normal. Respiratory rate normal. Temperature normal. Oxygen saturation normal. Appearance: Alert. Oriented X3. No acute distress. Head: Normal external exam. Normocephalic. Atraumatic. No Han signs noted. No raccoon eyes noted Eyes: PERRLA. EOMI. Conjunctiva and sclera normal. Eyelids normal. ENT: TM's Normal. Pharynx normal. Uvula midline. Moist mucous membranes. No trismus noted. No drooling noted. No muffled voice noted. Neck: Normal inspection. Neck supple. FROM. No adenopathy. Thyroid Normal. No meningeal signs. No neck mass noted. CVS: Normal heart rate and rhythm. Heart sound normal. No murmurs noted. Pulses normal throughout. Respiratory: No respiratory distress. Painless inspiration. Breath sounds normal. No wheezes/rales/rhonchi noted. Chest nontender. No accessory muscle usage noted or decreased air movement noted. Abdomen: Soft and nontender. Bowel sounds normal in all 4 quadrants. No distention noted. No organomegaly noted. No visible injury noted. Back: No CVA tenderness. Diffuse spine tenderness, no step-off, no deformity is appreciated. Skin: Skin warm and dry. Normal skin color. Normal skin turgor. No rashes/lesions/lacerations noted. Extremities: No lower extremity edema. Extremities exhibit normal range of motion. Extremities nontender. Neuro: Oriented X 3. Cranial nerve exam: II-XII are grossly intact No motor deficit. No sensory deficit. Reflexes normal. Course Reevaluation(s) Reevaluation #1: Acute on chronic back pain due to chronic degenerative/arthritis disease to the whole spine, patient needs to quit smoking and lose weight before surgery will be taking place at [place]. Will start the patient on few pills of oxycodone. Time: 03:36 Medical Decision Making Differential Diagnosis Differential Diagnoses: The differential diagnosis associated with the presentation includes (Acute on chronic back pain.) Admission/Observation Consideration of admission/observation: Escalation of care including admission/observation considered Chronic Conditions Patient?s care impacted by: Other (Chronic degenerative disease of the spine) Discharge Plan Discharge Clinical Impression: Degenerative disc disease, cervical, Degenerative disc disease, lumbar, Degenerative disc disease, thoracic Patient Disposition: Home, Self-Care Instructions: Degenerative Disc Disease (ED) Prescriptions: New oxycodone 5 mg tablet 5 mg PO BID PRN (Reason: pain) Qty: 10 0RF Rx Instructions: Partial Fill upon patient request. No Action amiodarone 200 mg tablet 200 mg PO DAILY Qty: 30 3RF metoprolol succinate 50 mg tablet extended release 24 hr 50 mg PO BID 30 Days Qty: 60 3RF Protocol: Hold for SBP/HR < HOLD for SBP < : 90 HOLD for HR < : 60 Rx Instructions: Replaces prior dose of 75 mg twice daily penicillin V potassium 250 mg Tablet 250 mg PO BID albuterol sulfate 90 mcg/actuation Hfa Aerosol Inhaler 2 puff INHALATION Q4-6H PRN (Reason: Respiratory Distress) loratadine 10 mg Tablet 10 mg PO DAILY rosuvastatin 10 mg Tablet 10 mg PO DAILY duloxetine 60 mg Capsule,Delayed Release(Dr/Ec) 60 mg PO DAILY Rx Instructions: TAKE WITH 40MG duloxetine 40 mg Capsule, Delayed Rel Sprinkle 40 mg PO DAILY Rx Instructions: TAKE WITH 60MG nitrofurantoin monohyd/m-cryst 100 mg capsule 100 mg PO BID lamotrigine 200 mg tablet 200 mg PO BEDTIME Rx Instructions: TAKE WITH 50MG lamotrigine 25 mg tablet 50 mg PO BEDTIME Rx Instructions: TAKE WITH 200MG clonidine HCl 0.1 mg tablet 0.1 mg PO BID PRN (Reason: Anxiety) ipratropium bromide 21 mcg (0.03 %) spray,non-aerosol 2 spray intranasal BID PRN (Reason: Allergy Symptoms) cyclobenzaprine 5 mg tablet 5 mg PO BEDTIME PRN (Reason: muscle spasm) Xarelto 20 mg Tablet 20 mg PO DAILY Qty: 30 0RF Rx Instructions: Replaces warfarin furosemide 40 mg tablet 40 mg PO DAILY Qty: 30 0RF nicotine 21 mg/24 hr patch 24 hour 21 mg transdermal DAILY PRN (Reason: Nicotine Cravings) diltiazem HCl [Cardizem CD] 240 mg capsule,extended release 24hr 240 mg PO DAILY Qty: 30 0RF ropinirole 0.5 mg tablet 0.5 mg PO TID budesonide-formoterol [Symbicort] 80-4.5 mcg/actuation HFA aerosol inhaler 2 puff inhalation BID Referrals: Kyle Ahumada DO [Primary Care Provider] -
== END 2023-09-04 03:45 | disposition home or self-care (01) ==
PROVIDERS: Emergency Provider Emergency Medicine; PCP Family Medicine
DX: M50.30 Other cervical disc degeneration, unspecified cervical region (principal); M51.36 Other intervertebral disc degeneration, lumbar region; M51.34 Other intervertebral disc degeneration, thoracic region; M41.9 Scoliosis, unspecified; E11.9 Type 2 diabetes mellitus without complications; I10 Essential (primary) hypertension; E78.5 Hyperlipidemia, unspecified; I48.92 Unspecified atrial flutter; F17.210 Nicotine dependence, cigarettes, uncomplicated; Z86.718 Personal history of other venous thrombosis and embolism; Z79.02 Long term (current) use of antithrombotics/antiplatelets; Z79.899 Other long term (current) drug therapy
CPT/HCPCS: 99284

== ENCOUNTER 2023-09-09 15:42 | Emergency (ER) | payer OTHER, SELFPAY ==
[2023-09-09 15:46] VITALS: BP 159/96; PULSE 90; RESP 18; TEMP 35.8; O2SAT 97; BMI 41.8
--- NOTE | 2023-09-09 15:52 | ED.BACK ---
HPI - Back Pain/Injury General Chief Complaint: Back Pain/Injury Stated Complaint: Shoulder and back pain History of Present Illness HPI Narrative: Patient with chronic back pain, scoliosis, has been evaluated by specialist and pain management, is discussing a possible surgery with a specialist She has having a flare up of her pain and is hoping for pain medication, she denies any new change to bowel or bladder, for many years she has had occasional intermittent urinary incontinence but this is stable and unchanged and there are no episodes in recent days, she has no complaint of dysuria she has no chest pain or abdominal pain, pain does radiate down both legs but she denies any weakness or loss of sensation She has had no fever does not use any intravenous or street drugs Related Data Home Medications Medication Instructions Recorded Confirmed albuterol sulfate 90 mcg/actuation 2 puff inhalation Q4-6H PRN 11/24/21 03/24/23 aerosol inhaler Respiratory Distress duloxetine 40 mg capsule,delayed 40 mg PO DAILY 11/24/21 03/24/23 release sprinkle duloxetine 60 mg capsule,delayed 60 mg PO DAILY 11/24/21 03/24/23 release loratadine 10 mg tablet 10 mg PO DAILY 11/24/21 03/24/23 penicillin V potassium 250 mg 250 mg PO BID 11/24/21 03/24/23 tablet rosuvastatin 10 mg tablet 10 mg PO DAILY 11/24/21 03/24/23 nitrofurantoin 100 mg PO BID 12/31/21 03/24/23 monohydrate/macrocrystals 100 mg capsule ropinirole 0.5 mg tablet 0.5 mg PO TID 05/01/22 03/24/23 budesonide-formoterol HFA 80 2 puff inhalation BID 09/29/22 03/24/23 mcg-4.5 mcg/actuation aerosol inhaler (Symbicort) clonidine HCl 0.1 mg tablet 0.1 mg PO BID PRN Anxiety 02/05/23 03/24/23 cyclobenzaprine 5 mg tablet 5 mg PO BEDTIME PRN muscle spasm 02/05/23 03/24/23 ipratropium bromide 21 mcg (0.03 2 spray intranasal BID PRN Allergy 02/05/23 03/24/23 %) nasal spray Symptoms lamotrigine 200 mg tablet 200 mg PO BEDTIME 02/05/23 03/24/23 lamotrigine 25 mg tablet 50 mg PO BEDTIME 02/05/23 03/24/23 nicotine 21 mg/24 hr daily 21 mg transdermal DAILY PRN 02/19/23 03/24/23 transdermal patch Nicotine Cravings Previous Rx's Medication Instructions Recorded furosemide 40 mg tablet 40 mg PO DAILY #30 tabs 02/10/23 rivaroxaban 20 mg tablet (Xarelto) 20 mg PO DAILY #30 tabs 02/10/23 diltiazem HCl 240 mg 240 mg PO DAILY #30 caps 02/27/23 capsule,extended release 24 hr (Cardizem CD) amiodarone 200 mg tablet 200 mg PO DAILY #30 tabs 05/05/23 metoprolol succinate 50 mg 50 mg PO BID 30 days #60 tabs 05/05/23 tablet,extended release 24 hr oxycodone 5 mg tablet 5 mg PO BID PRN pain #10 tabs 09/04/23 oxycodone 5 mg tablet 5 mg PO Q6H PRN pain #14 tabs 09/09/23 Allergies Allergy/AdvReac Type Severity Reaction Status Date / Time adhesive Allergy Rash Verified 09/09/23 15:46 [facility] Past Medical History Source: nursing notes reviewed Medical History History of cardioversion Leg edema Chronic respiratory failure requiring treatment with nocturnal BPAP by mask Morbid obesity Diabetes HLD (hyperlipidemia) HTN (hypertension) DVT of axillary vein, acute Arthritis Scoliosis Disc disorder of cervical region Disc disorder of lumbar region COPD (chronic obstructive pulmonary disease) Surgical History History of prolapse of bladder Hx of abdominoplasty History of partial hysterectomy Hx of esophagogastroduodenoscopy Hx of gastric bypass Status post knee replacement Previous back surgery Family History Family History Father Stroke Other Diabetes Social History Social History Household Members: Family Household Members Other:: daughter Housing: Apartment Do you presently have visiting nurse or other home services: Yes Alcohol intake: never Comment: PT REFUSING ALL SAFTEY AND FALL PRECAUTIONS Patient Tobacco Use Status: Current everyday Tobacco user Tobacco use type: Cigarette Cigarette Packs Per Day: 1.5 Cigarettes Per Day: 20 Years Smoked: 40 +/- Second Hand Smoke Exposure: No Advance Directives Date on File: 11/24/21 service: No Physical Exam Vital Signs: Vital Signs: Last Vital Signs Temp 96.5 F L 09/09/23 15:46 Pulse 90 09/09/23 15:46 Resp 18 09/09/23 15:46 BP 159/96 H 09/09/23 15:46 Pulse Ox 97 09/09/23 15:46 O2 Del Method Room Air 09/09/23 15:46 BMI result Body Mass Index 41.8 General appearance uncomfortable but no distress Head normocephalic atraumatic Neck is supple Respiratory no distress Abdomen soft non tender The back had mid back soft tissue tenderness no focal bony tenderness, skin there is no redness or evidence of abscess or skin infection, no rash Extremities full range motion x4 Neuro gait and balance are normal with her walker which she uses regularly, nothing new and motor is 5/5 x4 and sensation intact and symmetrical Course Course Course Narrative: Patient without neurologic deficit, no new change to bowel or bladder, no fever no IV drug use complains of chronic pain flare and is given a prescription for oxycodone 14 tabs and is advised that ER can not do regular refills and she needs to talk to her regular doctor and back specialist for future pain refills Well-appearing patient without neurologic deficit is discharged Discharge Plan Discharge Clinical Impression: Back pain Patient Disposition: Home, Self-Care Additional Instructions: We are treating her pain with a short prescription for oxycodone but the ER can not provide any long-term medication refills for narcotic pain med so it is important that you talk to your doctor and back specialist for future refills Return any time any worse condition and follow with your doctor and back specialist Prescriptions: New oxycodone 5 mg tablet 5 mg PO Q6H PRN (Reason: pain) Qty: 14 0RF Rx Instructions: Partial Fill upon patient request. No Action amiodarone 200 mg tablet 200 mg PO DAILY Qty: 30 3RF metoprolol succinate 50 mg tablet extended release 24 hr 50 mg PO BID 30 Days Qty: 60 3RF Protocol: Hold for SBP/HR < HOLD for SBP < : 90 HOLD for HR < : 60 Rx Instructions: Replaces prior dose of 75 mg twice daily penicillin V potassium 250 mg Tablet 250 mg PO BID albuterol sulfate 90 mcg/actuation Hfa Aerosol Inhaler 2 puff INHALATION Q4-6H PRN (Reason: Respiratory Distress) loratadine 10 mg Tablet 10 mg PO DAILY rosuvastatin 10 mg Tablet 10 mg PO DAILY duloxetine 60 mg Capsule,Delayed Release(Dr/Ec) 60 mg PO DAILY Rx Instructions: TAKE WITH 40MG duloxetine 40 mg Capsule, Delayed Rel Sprinkle 40 mg PO DAILY Rx Instructions: TAKE WITH 60MG nitrofurantoin monohyd/m-cryst 100 mg capsule 100 mg PO BID lamotrigine 200 mg tablet 200 mg PO BEDTIME Rx Instructions: TAKE WITH 50MG lamotrigine 25 mg tablet 50 mg PO BEDTIME Rx Instructions: TAKE WITH 200MG clonidine HCl 0.1 mg tablet 0.1 mg PO BID PRN (Reason: Anxiety) ipratropium bromide 21 mcg (0.03 %) spray,non-aerosol 2 spray intranasal BID PRN (Reason: Allergy Symptoms) cyclobenzaprine 5 mg tablet 5 mg PO BEDTIME PRN (Reason: muscle spasm) Xarelto 20 mg Tablet 20 mg PO DAILY Qty: 30 0RF Rx Instructions: Replaces warfarin furosemide 40 mg tablet 40 mg PO DAILY Qty: 30 0RF nicotine 21 mg/24 hr patch 24 hour 21 mg transdermal DAILY PRN (Reason: Nicotine Cravings) oxycodone 5 mg tablet 5 mg PO BID PRN (Reason: pain) Qty: 10 0RF Rx Instructions: Partial Fill upon patient request. diltiazem HCl [Cardizem CD] 240 mg capsule,extended release 24hr 240 mg PO DAILY Qty: 30 0RF ropinirole 0.5 mg tablet 0.5 mg PO TID budesonide-formoterol [Symbicort] 80-4.5 mcg/actuation HFA aerosol inhaler 2 puff inhalation BID
== END 2023-09-09 16:15 | disposition home or self-care (01) ==
PROVIDERS: Emergency Provider Emergency Medicine Emergency Medical Services; PCP Family Medicine
DX: M54.50 Low back pain, unspecified (principal); G89.4 Chronic pain syndrome; F17.210 Nicotine dependence, cigarettes, uncomplicated
CPT/HCPCS: 99282

== ENCOUNTER 2023-11-19 02:19 | Emergency (ER) | payer OTHER, SELFPAY ==
[2023-11-19 02:22] VITALS: BP 116/83; PULSE 77; RESP 20; TEMP 36.6; O2SAT 95; BMI 42.5
[2023-11-19] MEDS: oxyCODONE HCl Immed Release 5 MG TABLET 10 MG PO (04:14)
[2023-11-19 04:23] VITALS: BP 110/86; PULSE 77; RESP 16; TEMP 36.7; O2SAT 97
[2023-11-19 05:07] LABS: MANUAL DIFF FLAG NO
[2023-11-19 05:08] LABS: Basophils Absolute Auto 0.1 X10*3/uL (0.0-0.2); Basophils Percent Auto 0.7 % (0-2); Eosinophils Absolute Auto 0.3 X10*3/uL (0.0-0.4); Eosinophils Percent Auto 4.1 % (0-4); Hematocrit 36.5 % (37.0-47.0); Hemoglobin 12.1 g/dl (12.0-16.0); Imm Gran Abs Auto 0.02 X10*3/uL (0.00-0.03); Imm Gran Pct Auto 0.3 % (0.0-0.4); Lymphocytes Absolute Auto 2.8 X10*3/uL (1.2-4.9); Lymphocytes Percent Auto 41.7 % (20-40); Mean Corpuscular HGB Conc 33.2 g/dl (31.0-35.0); Mean Corpuscular Hemoglobin 27.9 pg (27.0-33.0); Mean Corpuscular Volume 84.1 fL (80.0-98.0); Mean Platelet Volume 9.6 fL (9.4-12.3); Monocytes Absolute Auto 0.6 X10*3/uL (0.1-1.2); Monocytes Percent Auto 8.9 % (2-11); Neutrophils Percent Auto 44.3 % (45-73); Platelet Count 227 X10*3/uL (160-400); Red Blood Count 4.34 X10*6/uL (4.20-5.50); Red Cell Distribution Width 15.9 % (11.0-16.0); White Blood Count 6.8 X10*3/uL (4.8-10.8)
[2023-11-19 05:22] LABS: Alanine Aminotransferase 16 U/L (0-31); Albumin Level 3.7 g/dL (3.5-5.0); Alkaline Phosphatase 95 U/L (39-117); Anion Gap 11 (12-20); Aspartate Amino Transferase 15 U/L (5-31); Bilirubin Direct 0.1 mg/dL (0.0-0.5); Bilirubin Total 0.3 mg/dL (0.0-1.0); Blood Urea Nitrogen 13 mg/dL (9-16); Calcium 9.2 mg/dL (8.4-10.2); Carbon Dioxide 27 mmol/L (22-29); Chloride 106 mmol/L (96-108); Estimated Glomerular Filt Rate > 60; Glucose Random 149 mg/dL (60-115); Potassium 4.1 mmol/L (3.3-5.1); Sodium 140 mmol/L (135-145)
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
[2023-11-19 06:29] VITALS: BP 116/75; PULSE 78; RESP 16; TEMP 36.5; O2SAT 98
== END 2023-11-19 06:30 | disposition home or self-care (01) ==
PROVIDERS: Emergency Provider Emergency Medicine; PCP Family Medicine
DX: M54.40 Lumbago with sciatica, unspecified side (principal); F17.210 Nicotine dependence, cigarettes, uncomplicated; Z79.899 Other long term (current) drug therapy
CPT/HCPCS: 36415; 80048; 80076; 85025; 99283; 99284

== ENCOUNTER 2024-01-02 20:41 | Emergency (ER) | payer OTHER, SELFPAY ==
[2024-01-02 20:50] VITALS: BP 153/91; PULSE 83; RESP 20; TEMP 36.5; O2SAT 97; BMI 44.3
--- NOTE | 2024-01-02 20:51 | ED_ITS ---
HPI - Neck Pain/Injury General Chief Complaint: General Medical Stated Complaint: neck, shoulder pain feels like pins and needles Time Seen by Provider: 01/02/24 22:10 Source: patient, RN notes reviewed and old records reviewed Mode of arrival: ambulatory Limitations: no limitations History of Present Illness ED Provider: Tate ABEL Narrative: 58 old female presents for evaluation of right-sided neck pain x2 months. She reports a history of chronic spinal issues including lower back and neck pain. She is due for lumbar spinal surgery next month. She states for last 2 months she has had worsening right-sided neck pain that radiating to both hands but specifically the right. She also complains of pins and needle sensation and describes the pain as burning. Denies any recent trauma, falls. Denies any fevers, chills Related Data Home Medications ?Medication ?Instructions ?Recorded ?Confirmed albuterol sulfate 90 mcg/actuation 2 puff inhalation Q4-6H PRN 11/24/21 03/24/23 aerosol inhaler Respiratory Distress duloxetine 40 mg capsule,delayed 40 mg PO DAILY 11/24/21 03/24/23 release sprinkle duloxetine 60 mg capsule,delayed 60 mg PO DAILY 11/24/21 03/24/23 release loratadine 10 mg tablet 10 mg PO DAILY 11/24/21 03/24/23 penicillin V potassium 250 mg 250 mg PO BID 11/24/21 03/24/23 tablet rosuvastatin 10 mg tablet 10 mg PO DAILY 11/24/21 03/24/23 nitrofurantoin 100 mg PO BID 12/31/21 03/24/23 monohydrate/macrocrystals 100 mg capsule ropinirole 0.5 mg tablet 0.5 mg PO TID 05/01/22 03/24/23 budesonide-formoterol HFA 80 2 puff inhalation BID 09/29/22 03/24/23 mcg-4.5 mcg/actuation aerosol inhaler (Symbicort) clonidine HCl 0.1 mg tablet 0.1 mg PO BID PRN Anxiety 02/05/23 03/24/23 cyclobenzaprine 5 mg tablet 5 mg PO BEDTIME PRN muscle spasm 02/05/23 03/24/23 ipratropium bromide 21 mcg (0.03 2 spray intranasal BID PRN Allergy 02/05/23 03/24/23 %) nasal spray Symptoms lamotrigine 200 mg tablet 200 mg PO BEDTIME 02/05/23 03/24/23 lamotrigine 25 mg tablet 50 mg PO BEDTIME 02/05/23 03/24/23 nicotine 21 mg/24 hr daily 21 mg transdermal DAILY PRN 02/19/23 03/24/23 transdermal patch Nicotine Cravings Previous Rx's ?Medication ?Instructions ?Recorded furosemide 40 mg tablet 40 mg PO DAILY #30 tabs 02/10/23 rivaroxaban 20 mg tablet (Xarelto) 20 mg PO DAILY #30 tabs 02/10/23 diltiazem HCl 240 mg 240 mg PO DAILY #30 caps 02/27/23 capsule,extended release 24 hr (Cardizem CD) amiodarone 200 mg tablet 200 mg PO DAILY #30 tabs 05/05/23 metoprolol succinate 50 mg 50 mg PO BID 30 days #60 tabs 05/05/23 tablet,extended release 24 hr oxycodone 5 mg tablet 5 mg PO BID PRN pain #10 tabs 09/04/23 oxycodone 5 mg tablet 5 mg PO Q6H PRN pain #14 tabs 09/09/23 cyclobenzaprine 10 mg tablet 10 mg PO TID PRN muscle spasm #14 11/19/23 tabs oxycodone 5 mg capsule 5 mg PO Q6H PRN pain #14 caps 11/19/23 dexamethasone 4 mg tablet 4 mg PO BID #6 tabs 01/02/24 oxycodone 5 mg tablet 5 mg PO Q6H PRN pain #12 tabs 01/02/24 Allergies Allergy/AdvReac Type Severity Reaction Status Date / Time adhesive Allergy Rash Verified 01/02/24 20:53 Review of Systems Constitutional: Constitutional: Denies body ache(s), Denies chills, Denies fever(s) and Denies headache(s) Eyes: Eyes: Denies blurry vision ENT: Denies headache(s) and Reports neck pain Cardiovascular: Cardiovascular: Denies chest pain and Denies dyspnea Respiratory: Respiratory: Denies cough and Denies dyspnea Gastrointestinal: Gastrointestinal: Denies abdominal pain, Denies nausea and Denies vomiting Musculoskeletal: Musculoskeletal: Reports back pain, Reports neck pain, Reports numbness, Reports radiating pain into limb, Reports stiffness and Reports tingling Neurologic: Denies headache(s), Reports numbness and Reports tingling PMFSH Past Medical History Medical History History of cardioversion Leg edema Chronic respiratory failure requiring treatment with nocturnal BPAP by mask Morbid obesity Diabetes HLD (hyperlipidemia) HTN (hypertension) DVT of axillary vein, acute Arthritis Scoliosis Disc disorder of cervical region Disc disorder of lumbar region COPD (chronic obstructive pulmonary disease) Surgical History History of prolapse of bladder Hx of abdominoplasty History of partial hysterectomy Hx of esophagogastroduodenoscopy Hx of gastric bypass Status post knee replacement Previous back surgery Family History Family History Father Stroke Other Diabetes Social History Social History Household Members: Family Household Members Other:: daughter Housing: Apartment Do you presently have visiting nurse or other home services: Yes Alcohol intake: never Comment: PT REFUSING ALL SAFTEY AND FALL PRECAUTIONS Patient Tobacco Use Status: Current everyday Tobacco user Tobacco use type: Cigarette Cigarette Packs Per Day: 1.5 Cigarettes Per Day: 20 Years Smoked: 40 +/- Second Hand Smoke Exposure: No Advance Directives: Yes Advance Directives on File: Yes Advance Directives Date on File: 11/24/21 service: No Physical Exam Vital Signs: Vital Signs: Last Vital Signs Temp 98 F 01/02/24 22:58 Pulse 82 01/02/24 22:58 Resp 20 01/02/24 22:58 BP 115/79 01/02/24 22:58 Pulse Ox 97 01/02/24 22:58 O2 Del Method Room Air 01/02/24 22:58 BMI result Body Mass Index 44.3 Const: General: healthy appearing, comfortable, no acute distress, alert and awake Nutritional Appearance: well nourished Orientation/consciousness: patient oriented x3 HEENT: Head: Yes normocephalic and Yes atraumatic Eyes: Eyelids: Yes eyelids normal Conjunctivae: conjunctivae normal Sclerae: sclerae normal Corneas: corneas normal Pupils: Equal, round and reactive pupils present EOM: EOMs intact bilaterally Neck: Other: Patient has full range of motion of the neck/cervical spine. She has no vertebral tenderness. She has tenderness to the right cervical paraspinous region. Neck: Yes full ROM Resp: Effort & Inspection: normal respiratory effort, able to speak in complete sentences and not labored Skin: General skin exam: elasticity normal Neuro: General: patient oriented x3 Cranial nerves: Yes Equal, round and reactive pupils present and Yes Bilaterally intact EOM present Cognition (Neuro): normal cognition Motor exam (neuro): 5/5 motor strength present throughout Extrem: Other: Moving all extremities well including bilateral shoulders, elbows congestion Course Course Course Narrative: This is a Rapid Medical Examination (RME) performed by Rickey Walton PA-C in triage. Full HPI, ROS, assessment and treatment plan per primary provider in the Main ED. 58 yo female with history of chronic pain, aflutter on xarelto, DM, HTN, HLD who presents to the ER for evaluation of acute on chronic neck and shoulder pain for the last 4 days, ongoing for 6 months. Pain is in the upper back/neck, radiating to the bilateral hands. No improvement with Flexeril and Tylenol at home. 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 Plan: Explained to the patient that she should be followed by pain management, she says she is done it all. She reports her pain is 9/10. She would like something for her pain. Explained options are limited in the emergency department. She would like to wait to be evaluated by the main provider Medications Administered Discontinued Medications Generic Name Dose Route Start Last Admin Trade Name Freq PRN Reason Stop Dose Admin Dexamethasone 4 mg 01/02/24 22:50 01/02/24 23:04 Dexamethasone 4 Mg Tablet PO 01/02/24 22:51 4 mg ONCE ONE Administration Oxycodone HCl 5 mg 01/02/24 22:50 01/02/24 23:03 Oxycodone Hcl Immed Release 5 Mg Tablet PO 01/02/24 22:51 5 mg ONCE ONE Administration Medical Decision Making Medical Decision Making [facility] Narrative: 58-year-old female presents for evaluation of chronic right-sided neck pain. There was no injury. I do not see any indication for emergent imaging at this time. The patient has no neuro deficits despite complaints of numbness and tingling, gross sensation is intact, strength is 5/5. She has no concerning findings for infectious process. Plan for symptomatic treatment with dexamethasone for cervical radiculopathy. Will give her a short course of oxycodone Differential Diagnosis Differential Diagnoses: The differential diagnosis associated with the presentation includes Cervicalgia Cervical radiculopathy Next pain Muscle spasms Arthritis Discharge Plan Discharge Clinical Impression: Cervicalgia Patient Disposition: Home, Self-Care Instructions: Neck Pain (ED) Additional Instructions: You may use ibuprofen/Tylenol as needed for pain. You may use oxycodone for more severe, breakthrough pain. This may make you sleepy, did not drink alcohol or drive after taking it Take dexamethasone twice daily for the next 3 days. Check her sugars regularly while taking this medication, as it will likely inc rease the glucose Prescriptions: New oxycodone 5 mg tablet 5 mg PO Q6H PRN (Reason: pain) Qty: 12 0RF Rx Instructions: Partial Fill upon patient request. dexamethasone 4 mg tablet 4 mg PO BID Qty: 6 0RF No Action amiodarone 200 mg tablet 200 mg PO DAILY Qty: 30 3RF metoprolol succinate 50 mg tablet extended release 24 hr 50 mg PO BID 30 Days Qty: 60 3RF Protocol: Hold for SBP/HR < HOLD for SBP < : 90 HOLD for HR < : 60 Rx Instructions: Replaces prior dose of 75 mg twice daily penicillin V potassium 250 mg Tablet 250 mg PO BID albuterol sulfate 90 mcg/actuation Hfa Aerosol Inhaler 2 puff INHALATION Q4-6H PRN (Reason: Respiratory Distress) loratadine 10 mg Tablet 10 mg PO DAILY rosuvastatin 10 mg Tablet 10 mg PO DAILY duloxetine 60 mg Capsule,Delayed Release(Dr/Ec) 60 mg PO DAILY Rx Instructions: TAKE WITH 40MG duloxetine 40 mg Capsule, Delayed Rel Sprinkle 40 mg PO DAILY Rx Instructions: TAKE WITH 60MG nitrofurantoin monohyd/m-cryst 100 mg capsule 100 mg PO BID lamotrigine 200 mg tablet 200 mg PO BEDTIME Rx Instructions: TAKE WITH 50MG lamotrigine 25 mg tablet 50 mg PO BEDTIME Rx Instructions: TAKE WITH 200MG clonidine HCl 0.1 mg tablet 0.1 mg PO BID PRN (Reason: Anxiety) ipratropium bromide 21 mcg (0.03 %) spray,non-aerosol 2 spray intranasal BID PRN (Reason: Allergy Symptoms) cyclobenzaprine 5 mg tablet 5 mg PO BEDTIME PRN (Reason: muscle spasm) Xarelto 20 mg Tablet 20 mg PO DAILY Qty: 30 0RF Rx Instructions: Replaces warfarin furosemide 40 mg tablet 40 mg PO DAILY Qty: 30 0RF nicotine 21 mg/24 hr patch 24 hour 21 mg transdermal DAILY PRN (Reason: Nicotine Cravings) oxycodone 5 mg tablet 5 mg PO BID PRN (Reason: pain) Qty: 10 0RF Rx Instructions: Partial Fill upon patient request. diltiazem HCl [Cardizem CD] 240 mg capsule,extended release 24hr 240 mg PO DAILY Qty: 30 0RF oxycodone 5 mg tablet 5 mg PO Q6H PRN (Reason: pain) Qty: 14 0RF Rx Instructions: Partial Fill upon patient request. oxycodone 5 mg capsule 5 mg PO Q6H PRN (Reason: pain) Qty: 14 0RF Rx Instructions: Partial Fill upon patient request. cyclobenzaprine 10 mg tablet 10 mg PO TID PRN (Reason: muscle spasm) Qty: 14 0RF ropinirole 0.5 mg tablet 0.5 mg PO TID budesonide-formoterol [Symbicort] 80-4.5 mcg/actuation HFA aerosol inhaler 2 puff inhalation BID Interventions: ED Discharge Assessment Last Done: 01/02/24 22:58 Discharge Date/Time: 01/02/24 23:07 Print Language: Guamanian
--- OUTSIDE RECORDS SUMMARY | 2024-01-02 21:12 | XMS_ITS | Continuity of Care Document ---
Author Organization [facility] Robin Jane Nolberto Address [address] [place] [address]- Care Team Providers Care Client Service Consultant Name Role Phone Fuentes Garcia MD Primary Care Physician Encounter [facility] Date(s): 09/22/20 - 10/22/20 [facility] Robin Bolañosley Adult [address] [place] [address]- Allergies, Adverse Reactions, Alerts Substance Reaction Severity Status Adhesive Bandage Active Dust copd exac/sinus congestion A ctive Immunizations Given and Recorded Vaccine Date Status Refusal Reason influenza virus vaccine, inactivated 1 04/30/20 Gi octavio influenza virus vaccine, inactivated 2 05/23/19 Gi octavio influenza virus vaccine, inactivated 04/27/18 Give n influenza virus vaccine, inactivated 3 07/08/17 Gi octavio influenza virus vaccine, inactivated 4 04/01/17 Gi octavio influenza virus vaccine, inactivated 08/12/16 Jarrett rded influenza virus vaccine, inactivated 05/23/14 Give n influenza virus vaccine, inactivated 5 06/07/13 Gi octavio Fluvirin (oldterm) 6 03/22/15 Given Fluzone Preservative-Free (oldterm) 7 03/12/12 Giv en pneumococcal 23-valent vaccine 10/08/11 Given tetanus/diphtheria/pertussis, acel(Tdap) 09/08/11 Given influ virus vac, H1N1, inactive(oldterm) 8 05/08/11 Given 1Result Comment: [id number] 2Result Comment: [id number] 3Result Comment: [07/08/2017] [id number] 4Admin Note: [facility] 5Admin Note: [facility] - 6Admin Note: Given at [facility] 7Admin Note: 03-11-12 GIVEN AT [facility] 8Admin Note: rcvd elsewhere Medications Acetaminophen = 650 mg, By Mouth, Every 4 hours, PRN Pain , Mild, 0 Refills, Maintenance, 06/09/14 2:27:05 Start Date: 06/09/14 Status: Ordered BATHROOM SCALE BATHROOM SCALE, See Instructions, # 1 each, Refills 0, Tot. Refills 0, Maintenance, DX: MORBID OBESITY, 07/26/20 13:52:00 EST, Supply Start Date: 07/26/20 Status: Ordered Bedside Commode See Instructions, # 1 each, Refills 0, Tot. Refills 0, Maintenance, M47.8 M48.061 E66.01, 08/10/20 14:26:00 EST, Supply Start Date: 08/10/20 Status: Ordered BiPAP Equipment AutoBiPAP max IPAP 15, min EPAP 6, PS 5 and 1 liter of 02 while sleeping, Maintenance, 12/26/17 13:44:20 EDT, Compound Start Date: 12/26/17 Status: Ordered calcipotriene 0.005% topical cream 1 application, Topically, 2 times a day, # 60 Gm, 5 Refills, Maintenance, 07/03/20 9:16:00 EST, Cream, [facility] #[id number], Partial fill upon patient request if the prescription is for a schedule II opioid drug., 1 application Topically 2 time... Start Date: 07/03/20 Status: Ordered Cane Cane, See Instructions, # 1 each, Refills 0, Tot. Refills 0, Maintenance, USE DAILY DJD M47.816 BILATERAL KNEE ARTHRITIS M12.9, 09/07/17 10:26:10, Compound Start Date: 09/07/17 Status: Ordered chlorthalidone 25 mg oral tablet 25 mg, 1, tablet, By Mouth, Daily, # 90 tablet, Refills 1, Tot. Refills 1, Maintenance, 06/04/20 12:56:00 EST, Route to Pharmacy Electronically, [facility] #[id number], please schedule appt for further refills, 165, cm, 05/16/20 14:15:00 EDT, Hei... Start Date: 06/04/20 Status: Ordered Claritin 10 mg oral tablet 10 mg, 1, tablet, By Mouth, Daily, for 90 days, # 90 tablet, Refills 3, Tot. Refills 3, Acute 07/28/21 15:22:00 EST, 08/02/20 15:22:00 EST, Route to Pharmacy Electronically, [facility] #[id number], 165, cm, 07/31/20 14:32:00 EST, Height, 127, kg,... Start Date: 08/02/20 Stop Date: 07/28/21 Status: Ordered colchicine 0.6 mg oral tablet See Instructions, take 1 tablet by mouth once daily if needed for PSEUDOGOUT pain, # 30 tablet, Refills 5, Tot. Refills 5, Soft Stop, 01/05/20 8:41:00 EDT, Instructions Replace Required Details, Route to Pharmacy Electronically, [facility] #... Start Date: 01/05/20 Status: Ordered Disposable Absorbant Pads 23 x 36 in Disposable Absorbant Pads 23 x 36 in, See Instructions, # 90 each, Refills 11, Tot. Refills 11, Maintenance, Use three times a day DX: overactive bladder, stress urinary incontinence, 12/07/18 13:46:54 EDT, Compound Start Date: 12/07/18 Status: Ordered Duloxetine = 40 mg, By Mouth, Daily at bedtime, 0 Refills, Maintenance, 01/11/20 12:48:00 EDT Start Date: 01/11/20 Status: Ordered duloxetine 60 mg oral enteric coated capsule 1 capsule = 60 mg, By Mouth, Daily in AM, 0 Refills, Maintenance, 07/30/18 11:21:14 EST Start Date: 07/30/18 Status: Ordered Estrace Vaginal Cream 0.1 mg/g 1/2 GM, Vaginally, Every Thursday and , # 42.5 Gm, 3 Refills, Maintenance, 06/22/20 14:58:00 EST, [facility] #[id number], 165, cm, 06/07/20 13:52:00 EST, Height, 127, kg, 02/03/20 14:39:00EDT, Dry Weight Start Date: 06/22/20 Status: Ordered Hospital Bed See Instructions, # 1 each, Refills 0, Tot. 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 Spinal Stenosis M48.061 Morbid Obesity E66.01 Venous Insuffiency of leg I87.2, 07/21/19 9:29:00 EST, Compound Start Date: 07/21/19 Status: Ordered HydrOXYzine PRn , rare use, 0 Refills, Maintenance, 04/30/20 15:04:00 EDT Start Date: 04/30/20 Status: Ordered ipratropium nasal 21 mcg/inh spray 2 sprays, Nares, Both, 2 times a day, # 30 mL, 5 Refills, Maintenance, 10/01/18 10:08:42 EST, Castella, 2 sprays Nares, Both 2 times a day Start Date: 10/01/18 Status: Ordered lamotrigine 200 mg oral tablet 1 tablet = 200 mg, By Mouth, Daily at bedtime, 0 Refills, Maintenance, 02/19/18 15:03:43 EDT Start Date: 02/19/18 Status: Ordered Light Weight Rollator walker with seat and brakes Light Weight Rollator walker with seat and brakes, See Instructions, # 1 each, Refills 0, Tot. Refills 0, Maintenance, DX: DJD lumbar spine M47.8 Spinal Stenosis M48.061 Morbid Obesity E66.01, 07/21/19 9:27:00 EST, Compound Start Date: 07/21/19 Status: Ordered loratadine 10 mg oral tablet 10 mg, 1, tablet, By Mouth, Daily, # 90 tablet, Refills 3, Tot. Refills 3, Maintenance, 08/02/20 16:13:00 EST, Route to Pharmacy Electronically, [facility] #[id number], D/C RX ON FILE FOR ABRAM, 165, cm, 07/31/20 14:32:00 EST, Height, 127, kg,... Start Date: 08/02/20 Status: Ordered LORazepam 1 mg oral tablet 1 tablet = 1 mg, By Mouth, 2 times a day, PRN as needed for anxiety, 0 Refills, Maintenance, 08/10/15 5:11:27, Tablet Start Date: 08/10/15 Status: Ordered methenamine hippurate 1 gm oral tablet 1 tablet = 1 Gm, By Mouth, 2 times a day, # 60 tablet, 1 Refills, Maintenance, 07/12/20 13:56:00 EST, [facility] #[id number], Partial fill upon patient request if the prescription is for a schedule II opioid drug., 165, cm, 07/11/20 15:24:00 EST,... Start Date: 07/12/20 Stop Date: 07/05/21 Status: Ordered metoprolol 25 mg oral tablet 25 mg, 1, tablet, By Mouth, 2 times a day, # 60 tablet, Refills 5, Tot. Refills 5, Maintenance, 09/22/20 13:59:00 EST, Route to Pharmacy Electronically, [facility] #[id number], 165, cm, 07/31/2113:32:00 EST, Height, 127, kg, 02/03/20 14:39:00 ED... Start Date: 09/22/20 Status: Ordered NARCAN NASAL SPRAY WITH SUPPLIES TO ADMINISTER NARCAN NASAL SPRAY WITH SUPPLIES TO ADMINISTER, See Instructions, PRN SUSPECTED OPIATE OVERDOSE, # 1 each, Refills 0, Tot. Refills 0, Maintenance, ADMINISTER 1 SPRAY EVERY 2-3 MINUTES IN ALTERNATING NOSTRILS UNTIL MEDICAL ASSISTANCE BECOMES AVAILABLE,... Start Date: 08/27/15 Status: Ordered Nicoderm C-Q Clear 21 mg/24 hr transdermal film, extended release 1 patch, Topically, Daily, # 42 patch, 0 Refills, Maintenance, 06/18/20 16:57:00 EST, Patch, [facility] #[id number], Partial fill upon patient request, 165, cm, 06/07/20 13:52:00 EST, Height, 127, kg, 02/03/20 14:39:00 EDT, Dry Weight Start Date: 06/18/20 Stop Date: 07/30/20 Status: Ordered NuLYTELY with Flavor Packs oral powder for reconstitution See Instructions, Drink 240mL every 15-20 minutes until first half is gone. Repeat 6 hours prior toprocedure., # 4,000 mL, 0 Refills, Maintenance, 06/28/20 17:09:00 EST, [facility] #[id number],Partial fill upon patient request if the prescript... Start Date: 06/28/20 Status: Ordered oxyCODONE 10 mg oral tablet 1 tablet = 10 mg, By Mouth, Every 8 hours, DX Z79.891 G89.29 M47.816 OK TO FILL LESS THAN PRESCRIBED AMOUNT, # 84 tablet, 0 Refills, Maintenance, 10/08/20 16:54:00 EDT, Tablet, [facility] #[id number], 10/09/20, 165, cm, 07/31/20 14:32:00 EST, He... Start Date: 10/08/20 Stop Date: 11/05/20 Status: Ordered penicillin V potassium 250 mg oral tablet 1 tablet = 250 mg, By Mouth, 2 times a day, Cellulitis prophylaxis, # 60 tablet, 11 Refills, Maintenance, 05/18/19 14:33:58 EDT, D/C previous rx sent 05/17/19 Start Date: 05/18/19 Status: Ordered predniSONE 10 mg oral tablet 1 tablet = 10 mg, By Mouth, Daily, # 30 tablet, 0 Refills, Maintenance, 10/12/20 9:55:00 EDT, Tablet, [facility] #[id number], Partial fill upon patient request if the prescription is for a schedule II opioid drug., 165, cm, 10/12/20 8:22:00 EDT,... Start Date: 10/12/20 Status: Ordered PULL UPS PULL UPS, See Instructions, # 240 each, Refills 11, Tot. Refills 11, Maintenance, 8 A DAY X 30 DAYSLENGTH OF NEED: LIFETIME DX: INCONTINENCE SIZE EXTRA LARGE, 11/18/19 9:31:00 EDT, Compound, 162, cm, 09/21/19 12:01:00 EST, Height, 116.4, kg, 10/... Start Date: 11/18/19 Status: Ordered risperiDONE 1 mg oral tablet take 1 tablet by mouth twice a day Start Date: 05/23/19 Status: Ordered rOPINIRole 0.5 mg oral tablet 1 tablet = 0.5 mg, By Mouth, 3 times a day, # 90 tablet, 5 Refills, Maintenance, 04/30/20 15:13:00 EDT, Tablet, [facility] #[id number], 165, cm, 04/30/20 14:30:00 EDT, Height, 127, kg, 02/03/20 14:39:00 EDT, Dry Weight Start Date: 04/30/20 Status: Ordered rosuvastatin 10 mg oral tablet 1 tablet = 10 mg, By Mouth, Daily, # 90 tablet, 3 Refills, Maintenance, 05/03/20 16:35:00 EDT, Tablet, [facility] #[id number], d/c rx for capsules, 165, cm, 04/30/20 14:30:00 EDT, Height, 127, kg, 02/03/20 14:39:00 EDT, Dry Weight Start Date: 05/03/20 Status: Ordered Ventolin HFA 108 mcg/inh inhalation aerosol with adapter 2 puffs, Inhalation, Every 4 hours, PRN Wheezing/Shortness of Breath, # 1 each, 11 Refills, Soft Stop, 01/19/20 11:46:00 EDT, [facility] #[id number], 165, cm, 01/16/20 6:17:00 EDT, Height, 128.1, kg, 01/16/20 6:17:00 EDT, Dry Weight Start Date: 01/19/20 Status: Ordered warfarin 5 mg oral tablet 1 tablet = 5 mg, By Mouth, Daily, dosing subject to change pending inr lab values, # 30 tablet, 11 Refills, Maintenance, 08/31/20 15:36:00 EST, Tablet, [facility] #[id number], 165, cm, 07/31/20 14:32:00 EST, Height, 127, kg, 02/03/20 14:39:00 EDT... Start Date: 08/31/20 Status: Ordered Problem List Condition Effective Dates Status Health Status Inform ant Arthritis of knee - bilateral(Confirmed) Active Bipolar disorder NOS(Confirmed) Active Overactive bladder(Confirmed) Active Cervical radiculopathy - left(Confirmed) Active Chronic back pain(Confirmed) Active Chronic obstructive pulmonar y disease (COPD)(Confirmed) 1 Active Chronic pain syndrome(Confirmed) Active Cigarette smoker(Confirmed) 02/12/12 Active COPD (chronic obstructive pu lmonary disease)(Confirmed) Active Deep venous thrombosis - Rec urrent, left leg, 2011.(Confirmed) Active Straining with stools(Confirmed) Active Other disorders of iron metabolism(Confirmed) Active DJD (degenerative joint dise ase), lumbar(Confirmed) 06/04/12 Active DVT - Deep vein thrombosis, post surgical 2009, left leg(Confirmed) Active Essential tremor(Confirmed) Active Fibromyalgia(Confirmed) Active Anticoagulant long-term use(Confirmed) Active Gastric banding status(Confirmed) Active custodial current use of opi ate analgesic(Confirmed) Active Hyperparathyroidism(Confirmed) Active Hypersomnia with sleep apnea(Confirmed) Active Lymphedema(Confirmed) Active Depression, major(Confirmed) Active Severe obstructive sleep apnea-hypopnea syndrome(Confirmed) Active Other Pain Disorders Related to Psychological Factors(Confirmed) Active Paroxysmal atrial flutter(Confirmed) Active PMR (polymyalgia rheumatica)(Confirmed) Active Prophylactic antibiotic - da jordan Pen VK for lymphedema , prevention of cellulitis(Confirmed) Active Pruritic rash(Confirmed) Active Pseudogout of knees(Confirmed) Active Pseudoseizures(Confirmed) Active PTSD - Post-traumatic stress disorder(Confirmed) Active Recurrent bacterial cystitis(Confirmed) Active Restless leg syndrome(Confirmed) Active Scoliosis(Confirmed) 06/04/12 Active Encounter for screening colonoscopy(Confirmed) Active Spinal stenosis, lumbar(Confirmed) 06/04/12 Active Stasis dermatitis(Confirmed) Active Urinary urgency(Confirmed) Active Urinary incontinence(Confirmed) Active UI (urinary incontinence)(Confirmed) Active Venous insufficiency of leg(Confirmed) Active 1Mild obstruction on PFT's September 2011 Social History Social History Type Response Smoking Status 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
--- OUTSIDE RECORDS SUMMARY | 2024-01-02 21:12 | XMS_ITS | Continuity of Care Document ---
Author Organization [facility] Buck Nolberto Address [address] [place] [address]- Care Team Providers Care Hearing Examiner Name Role Phone Fuentes Garcia MD Primary Care Physician [phone] [facility]counter [facility] Date(s): 09/22/[facility] - 01/20/20 [facility] Adult [address] [place] [address]- [facility] Attending Physician: Fuentes Garcia MD Allergies, Adverse Reactions, Alerts Substance Reaction Severity Status Dust copd exac/sinus congestion A ctive Immunizations Given and Recorded Vaccine Date Status Refusal Reason influenza virus vaccine, inactivated 1 05/23/19 Gi octavio influenza virus vaccine, inactivated 04/27/18 Give n influenza virus vaccine, inactivated 2 07/08/17 Gi octavio influenza virus vaccine, inactivated 3 04/01/17 Gi octavio influenza virus vaccine, inactivated 08/12/16 Jarrett rded influenza virus vaccine, inactivated 05/23/14 Give n influenza virus vaccine, inactivated 4 06/07/13 Gi octavio Fluvirin (oldterm) 5 03/22/15 Given Fluzone Preservative-Free (oldterm) 6 03/12/12 Giv en pneumococcal 23-valent vaccine 10/08/11 Given tetanus/diphtheria/pertussis, acel(Tdap) 09/08/11 Given influ virus vac, H1N1, inactive(oldterm) 7 05/08/11 Given 1Result Comment: [id number] 2Result Comment: [07/08/2017] [id number] 3Admin Note: [facility] 4Admin Note: [facility] - 5Admin Note: Given at [facility] 6Admin Note: 03-11-12 GIVEN AT [facility] 7Admin Note: rcvd elsewhere Medications Acetaminophen = 650 mg, By Mouth, Every 4 hours, PRN Pain , Mild, 0 Refills, Maintenance, 06/09/14 2:27:05 Start Date: 06/09/14 Status: Ordered BiPAP Equipment AutoBiPAP max IPAP 15, min EPAP 6, PS 5 and 1 liter of 02 while sleeping, Maintenance, 12/26/17 13:44:20 EDT, Compound Start Date: 12/26/17 Status: Ordered Cane Cane, See Instructions, # 1 each, Refills 0, Tot. Refills 0, Maintenance, USE DAILY DJD M47.816 BILATERAL KNEE ARTHRITIS M12.9, 09/07/17 10:26:10, Compound Start Date: 09/07/17 Status: Ordered chlorthalidone 25 mg oral tablet 25 mg, 1, tablet, By Mouth, Daily, # 90 tablet, Refills 1, Tot. Refills 1, Maintenance, 12/06/19 9:16:00 EDT, Route to Pharmacy Electronically, [facility] #[id number], please schedule appt for further refills, 162, cm, 09/21/19 12:01:00 ESTLaurie... Start Date: 12/06/19 Status: Ordered Claritin 10 mg oral tablet 10 mg, 1, tablet, By Mouth, Daily, for 30 days, # 30 tablet, Refills 11, Tot. Refills 11, Acute 05/11/20 17:36:41 EDT, 05/17/19 17:36:41 EDT, Route to Pharmacy Electronically, [id number], [facility] - [address] [place] [address] Start Date: 05/17/19 Stop Date: 05/11/20 Status: Ordered colchicine 0.6 mg oral tablet See Instructions, take 1 tablet by mouth once daily if needed for PSEUDOGOUT pain, # 30 tablet, Refills 5, Tot. Refills 5, Soft Stop, 01/05/20 8:41:00 EDT, Instructions Replace Required Details, Route to Pharmacy Electronically, [facility] #... Start Date: 01/05/20 Status: Ordered [...] Every Thursday and , # 42.5 Gm, 1 Refills, Maintenance, 12/20/19 16:30:00 EDT, [facility] #[id number], 162, cm, 09/21/19 12:01:00 EST, Height, 116.4, kg, 05/04/19 11:52:00 EDT, Dry Weight Start Date: 12/20/19 Status: Ordered Hospital Bed See Instructions, # 1 each, Refills 0, Tot. 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 Spinal Stenosis M48.061 Morbid Obesity E66.01 Venous Insuffiency of leg I87.2, 07/21/19 9:29:00 EST, Compound Start Date: 07/21/19 Status: Ordered hydroxyzine hydrochloride 50 mg oral tablet 1 tablet = 50 mg, By Mouth, 4 times a day, PRN as needed for itching, # 90 tablet, 5 Refills, Maintenance, 09/04/15 16:47:26, Tablet, 1 tablet By Mouth 4 times a day,PRN:as needed for itching Start Date: 09/04/15 Status: Ordered ipratropium nasal 21 mcg/inh spray 2 sprays, Nares, Both, 2 times a day, # 30 mL, 5 Refills, Maintenance, 10/01/18 10:08:42 EST, [place], 2 sprays Nares, Both 2 times a [...] EST, Compound Start Date: 07/21/19 Status: Ordered LORazepam 1 mg oral tablet 1 tablet = 1 mg, By Mouth, 2 times a day, PRN as needed for anxiety, 0 Refills, Maintenance, 08/10/15 5:11:27, Tablet Start Date: 08/10/15 Status: Ordered Macrobid macrocrystals-monohydrate 100 mg oral capsule 1 capsule = 100 mg, By Mouth, Daily, one capsule daily for 3 months, # 90 capsule, 0 Refills, Acute01/22/20 9:00:00 EDT, 01/16/20 8:10:00 EDT, Capsule, [facility] #[id number], 165, cm, :17:00 EDT, Height, 128.1, kg, 01/16/20 6:17:00 ED... Start Date: 01/16/20 Stop Date: 01/22/20 Status: Ordered metoprolol 25 mg oral tablet 25 mg, 1, tablet, By Mouth, 2 times a day, # 60 tablet, Refills 5, Tot. Refills 5, Maintenance, 09/28/19 11:53:00 EST, Route to Pharmacy Electronically, [facility] #[id number], 162, cm, 09/21/2011:01:00 EST, Height, 116.4, kg, 05/04/19 11:52:00... Start Date: 09/28/19 Status: Ordered NARCAN NASAL SPRAY WITH SUPPLIES TO ADMINISTER NARCAN NASAL SPRAY WITH SUPPLIES TO ADMINISTER, See Instructions, PRN SUSPECTED OPIATE OVERDOSE, # 1 each, Refills 0, Tot. Refills 0, Maintenance, ADMINISTER 1 SPRAY EVERY 2-3 MINUTES IN ALTERNATING NOSTRILS UNTIL MEDICAL ASSISTANCE BECOMES AVAILABLE,... Start Date: 08/27/15 Status: Ordered oxyCODONE 10 mg oral tablet 1 tablet = 10 mg, By Mouth, Every 8 hours, DX Z79.891 G89.29 M47.816 OK TO FILL LESS THAN PRESCRIBED AMOUNT, # 84 tablet, 0 Refills, Maintenance, 01/05/20 11:19:00 EDT, Tablet, [facility] #[id number], 162, cm, 01/05/20 8:32:00 EDT, Height, 116.4... Start Date: 01/05/20 Status: Ordered penicillin V potassium 250 mg oral tablet 1 tablet = 250 mg, By Mouth, 2 times a day, Cellulitis prophylaxis, # 60 tablet, 11 Refills, Maintenance, 05/18/19 14:33:58 EDT, D/C previous rx sent 05/17/19 Start Date: 05/18/19 Status: Ordered PULL UPS PULL UPS, See [...] a day Start Date: 05/23/19 Status: Ordered Ventolin HFA 108 mcg/inh inhalation aerosol with adapter 2 puffs, Inhalation, Every 4 hours, PRN Wheezing/Shortness of Breath, # 1 each, 11 Refills, Soft Stop, 01/19/20 11:46:00 EDT, [facility] #[id number], 165, cm, 01/16/20 6:17:00 EDT, Height, 128.1, kg, 01/16/20 6:17:00 EDT, Dry Weight Start Date: 01/19/20 Status: Ordered warfarin 5 mg oral tablet 1 tablet = 5 mg, By Mouth, Daily, dosing subject to change pending inr lab values, # 30 tablet, 5 Refills, Maintenance, 07/25/19 8:37:00 EST, Tablet, [facility] - [address], 162, cm, 05/23/19 11:50:00 EDT, Height, 116.4, kg, 05/04/19 11:52:00 EDTGopal.. 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 Hyperparathyroidism(Confirmed) Active Hypersomnia with sleep apnea(Confirmed) Active Lymphedema(Confirmed) Active Depression, major(Confirmed) Active Severe obstructive sleep apnea-hypopnea syndrome(Confirmed) Active Other Pain Disorders Related to Psychological Factors(Confirmed) Active Paroxysmal atrial flutter(Confirmed) Active Prophylactic antibiotic - da jordan Pen VK for lymphedema , prevention of cellulitis(Confirmed) Active Pruritic rash(Confirmed) Active Pseudogout of knees(Confirmed) Active Pseudoseizures(Confirmed) Active PTSD - Post-traumatic stress disorder(Confirmed) Active Restless leg syndrome(Confirmed) Active Scoliosis(Confirmed) 06/04/12 [...]
--- OUTSIDE RECORDS SUMMARY | 2024-01-02 21:12 | XMS_ITS | Continuity of Care Document ---
Author Organization [facility] Buck Nolberto Address [address] [place] [address]- Care Team Providers Care Surgery Aid Name Role Phone Radha GRIDER, Fuentes Kenny Primary Care Physician [facility] Date[facility]s): 07/16[facility]21 - 08/15/21 [facility] Adult [address] [place] [address]- Allergies, Adverse Reactions, Alerts Substance Reaction Severity Status Adhesive Bandage Active Dust copd exac/sinus congestion A ctive Immunizations Given and Recorded Vaccine Date Status Refusal Reason influenza virus vaccine, inactivated 1 06/25/21 Gi octavio influenza virus vaccine, inactivated 2 04/30/20 Gi octavio influenza virus vaccine, inactivated 3 05/23/19 Gi octavio influenza virus vaccine, inactivated 04/27/18 Give n influenza virus vaccine, inactivated 4 07/08/17 Gi octavio influenza virus vaccine, inactivated 5 04/01/17 Gi octavio influenza virus vaccine, inactivated 08/12/16 Jarrett rded influenza virus vaccine, inactivated 05/23/14 Give n influenza virus vaccine, inactivated 6 06/07/13 Gi octavio influenza virus vaccine, inactivated 04/09/11 Jarrett rded influenza virus vaccine, inactivated 03/18/10 Jarrett rded influenza virus vaccine, inactivated 04/21/09 Jarrett rded influenza virus vaccine, inactivated 06/19/08 Jarrett rded influenza virus vaccine, inactivated 05/10/07 Jarrett rded SARS-CoV-2 (COVID-19) mRNA BNT-162b2 vac 01/02/21 Recorded SARS-CoV-2 (COVID-19) mRNA BNT-162b2 vac 12/02/20 Recorded Fluvirin (oldterm) 7 03/22/15 Given Fluzone Preservative-Free (oldterm) 8 03/12/12 Giv en pneumococcal 23-valent vaccine 10/08/11 Given tetanus/diphtheria/pertussis, acel(Tdap) 09/08/11 Given tetanus/diphtheria/pertussis, acel(Tdap) 12/17/06 Recorded influ virus vac, H1N1, inactive(oldterm) 9 05/08/11 Given hepatitis B adult vaccine 06/14/02 Recorded 1Result Comment: [id number] 2Result Comment: [id number] 3Result Comment: [id number] 4Result Comment: [07/08/2017] [id number] 5Admin Note: [facility] 6Admin Note: [facility] 04-08 7Admin Note: Given at [facility] 8Admin Note: 03-11-12 GIVEN AT [facility] 9Admin Note: rcvd elsewhere Medications Acetaminophen = 650 mg, By Mouth, Every 4 hours, PRN Pain , Mild, 0 Refills, Maintenance, 06/09/14 2:27:05 Start Date: 06/09/14 Status: Ordered Albuterol (Eqv-ProAir HFA) 90 mcg/inh inhalation aerosol See Instructions, INHALE 2 PUFFS BY MOUTH EVERY 4 HOURS NEEDED FOR WHEEZING OR SHORTNESS OF BREATH, # 8.5 Gm, 5 Refills, 05/29/21 17:13:00 EDT, [facility] #[id number], 17, INHALE 2 PUFFS BY MOUTH EVERY 4 HOURS NEEDED FOR WHEEZING OR SHORTNE... Start Date: 05/29/21 Status: Ordered BATHROOM SCALE BATHROOM SCALE, See [...] 2 times a day, # 60 Gm, 11 Refills, Maintenance, 10/31/20 14:14:00 EDT, Cream, [facility] #[id number], Partial fill upon patient request if the prescription is for a schedule II opioid drug., 1 application Topically 2 ti... Start Date: 10/31/20 Status: Ordered Cane Cane, See Instructions, # 1 each, Refills 0, Tot. Refills 0, Maintenance, USE DAILY DJD M47.816 BILATERAL KNEE ARTHRITIS M12.9, 09/07/17 10:26:10, Compound Start Date: 09/07/17 Status: Ordered chlorthalidone 25 mg oral tablet 1, tablet, By Mouth, Daily, # 90 tablet, Refills 3, Route to Pharmacy Electronically, [facility], 165, cm, 06/25/21 11:35:00 EST, Height, 127, kg, 02/03/20 14:39:00 EDT, Dry Weight Start Date: 07/09/21 Status: Ordered COVID 19 vaccine COVID 19 vaccine, See Instructions, # 1 each, Refills 0, Tot. Refills 0, Maintenance, Pt requested to get Covid 19 vaccine in the home offered per [facility]. Due to pt homebound. Ok per . [facility] needsorder per PCP faxed to them so [facility] can place pt on... Start Date: 10/25/20 Status: Ordered COVID VACCINE IN HOME COVID VACCINE IN HOME, See Instructions, # 2 each, Refills 0, Tot. Refills 0, Maintenance, please administer COVID 19 vaccine in home patient is HOMEBOUND , unable to leave her home diagnosis: COPD, PMR, history of smoking fax to : [phone], 04... Start Date: 10/26/20 Status: Ordered Disposable Absorbant Pads 23 x 36 in Disposable Absorbant Pads 23 x 36 in, See Instructions, # 90 each, Refills 11, Tot. Refills 11, Maintenance, Use three times a day DX: overactive bladder, stress urinary incontinence, 12/07/18 13:46:54 EDT, Compound Start Date: 12/07/18 Status: Ordered duloxetine 20 mg oral enteric coated capsule 2 capsule = 40 mg, By Mouth, Daily at bedtime, # 60 capsule, 11 Refills, Maintenance, 06/25/21 12:00:00 EST, Capsule, [facility], Partial fill upon patient request if the prescription is for a schedule II opioid drug., 165, cm, 06/25/21 11:35:... Start Date: 06/25/21 Status: Ordered duloxetine 60 mg oral enteric coated capsule 1 capsule = 60 mg, By Mouth, Daily in AM, 0 Refills, Maintenance, 07/30/18 11:21:14 EST Start Date: 07/30/18 Status: Ordered Estrace Vaginal Cream 0.1 mg/g 1/2 GM, Vaginally, Every Thursday and , # 42.5 Gm, 3 Refills, Maintenance, 06/22/20 14:58:00 EST, [facility] #[id number], 165, cm, 06/07/20 13:52:00 EST, Height, 127, kg, 02/03/20 14:39:00EDT, Dry Weight Start Date: 06/22/20 Status: Ordered Freestyle Lite Lancets See Instructions, # 200 each, Refills 11, Tot. Refills 11, Maintenance, Check glucose twice daily. T2DM Dx code E11.9, 02/25/21 11:02:00 EDT, Supply, 165, cm, 01/11/21 14:05:00 EDT, Height, 127, kg, 02/03/20 14:39:00 EDT, Dry Weight Start Date: 02/25/21 Status: Ordered Freestyle Lite Monitor See Instructions, # 1 each, Refills 0, Tot. Refills 0, Maintenance, Check glucose twice daily. T2DMDx code E11.9, 02/25/21 11:02:00 EDT, Supply, 165, cm, 01/11/21 14:05:00 EDT, Height, 127, kg, 02/03/20 14:39:00 EDT, Dry Weight Start Date: 02/25/21 Status: Ordered Freestyle Lite Test Strips See Instructions, # 200 each, Refills 11, Tot. Refills 11, Maintenance, Check glucose twice daily. T2DM Dx code E11.9, 02/25/21 11:02:00 EDT, Supply, 165, cm, 01/11/21 14:05:00 EDT, Height, 127, kg, 02/03/20 14:39:00 EDT, Dry Weight Start Date: 02/25/21 Status: Ordered Golytely - oral powder for reconstitution See Instructions, complete on day before procedure per ins, # 4,000 mL, 0 Refills, Maintenance, 05/24/21 16:13:00 EDT, REC Powder, [facility] #[id number], Partial fill upon patient request if the prescription is for a schedule II opioid drug., co... Start Date: 05/24/21 Status: Ordered Hospital Bed See Instructions, # [...] mL, 5 Refills, Maintenance, 10/01/18 10:08:42 EST, [place], 2 sprays Nares, Both 2 times a [...] Status: Ordered loratadine 10 mg oral tablet See Instructions, TAKE 1 TABLET BY MOUTH ONCE A DAY, # 90 tablet, Refills 1, Instructions Replace Required Details, Route to Pharmacy Electronically, [facility], 165, cm, 06/25/21 11:35:00 EST, Height, 127, kg, 02/03/20 14:39:00 EDT, Dry Weight Start Date: 08/05/21 Status: Ordered LORazepam 1 mg oral tablet 1 tablet = 1 mg, By Mouth, 2 times a day, PRN as needed for anxiety, 0 Refills, Maintenance, 08/10/15 5:11:27, Tablet Start Date: 08/10/15 Status: Ordered metFORMIN 500 mg oral tablet 2 tablet = 1,000 mg, By Mouth, 2 times a day, please take 2 tabs twice a day E11.9, # 120 tablet, 6Refills, Maintenance, 05/21/21 11:19:00 EDT, Tablet, [facility], Partial fill upon patient request if the prescription is for a schedule II... Start Date: 05/21/21 Status: Ordered methenamine hippurate 1 gm oral tablet 1 tablet = 1 Gm, By Mouth, 2 times a day, # 60 tablet, 11 Refills, Maintenance, 07/05/21 14:00:00 EST, [facility], Partial fill upon patient request if the prescription is for a schedule II opioid drug., 165, cm, 02/28/21 14:22:00 EDT, Height,... Start Date: 07/05/21 Status: Ordered Metoprolol Tartrate 25 mg oral tablet 1 tablet, By Mouth, 2 times a day, # 60 tablet, 3 Refills, [facility], 165, cm, 06/25/21 11:35:00 EST, Height, 127, kg, 02/03/20 14:39:00 EDT, Dry Weight Start Date: 07/09/21 Status: Ordered Mitigare 0.6 mg oral capsule 1 capsule, By Mouth, Daily, # 30 capsule, 11 Refills, Maintenance, 12/31/20 16:51:00 EDT, [facility] #[id number], 165, cm, 11/19/20 11:32:00 EDT, Height, 127, kg, 02/03/20 14:39:00 EDT, Dry Weight Start Date: 12/31/20 Status: Ordered NARCAN NASAL SPRAY WITH SUPPLIES TO ADMINISTER NARCAN NASAL SPRAY WITH SUPPLIES TO ADMINISTER, See Instructions, PRN SUSPECTED OPIATE OVERDOSE, # 1 each, Refills 0, Tot. Refills 0, Maintenance, ADMINISTER 1 SPRAY EVERY 2-3 MINUTES IN ALTERNATING NOSTRILS UNTIL MEDICAL ASSISTANCE BECOMES AVAILABLE,... Start Date: 04/11/21 Status: Ordered Nicoderm C-Q Clear 21 mg/24 hr transdermal film, extended release 1 patch, Topically, Daily, # 42 patch, 0 Refills, Maintenance, 04/11/21 9:00:00 EDT, Patch, [facility], Partial fill upon patient request, 165, cm, 02/28/21 14:22:00 EDT, Height, 127, kg, 02/03/20 14:39:00 EDT, Dry Weight Start Date: 04/11/21 Stop Date: 05/23/21 Status: Ordered NuLYTELY with Flavor Packs oral powder for reconstitution See Instructions, Drink 240mL every 15-20 minutes until first half is gone. Repeat 6 hours prior toprocedure., # 4,000 mL, 0 Refills, Maintenance, 06/28/20 17:09:00 EST, [facility] #[id number],Partial fill upon patient request if the prescript... Start Date: 06/28/20 Status: Ordered oxyCODONE 5 mg oral tablet See Instructions, 2 tablets by mouth twice daily for 1 week then 1 tablet by mouth twice daily for 1 week then 1 tablet daily for 1 week then stop. Tapering protocol, # 49 tablet, Refills 0, Tot. Refills 0, Maintenance, 08/13/21 17:00:00 EST, Instruc... Start Date: 08/13/21 Status: Ordered penicillin V potassium 250 mg oral tablet 1 tablet = 250 mg, By Mouth, 2 times a day, Cellulitis prophylaxis, # 60 tablet, 11 Refills, Maintenance, 10/30/20 12:09:00 EDT, [facility] #[id number], 165, cm, 10/19/20 8:59:00 EDT, Height, 127, kg, 02/03/20 14:39:00 EDT, Dry Weight Start Date: 10/30/20 Status: Ordered predniSONE 5 mg oral tablet 1 tablet = 5 mg, By Mouth, Daily, # 30 tablet, 0 Refills, Maintenance, 01/11/21 14:20:00 EDT, Tablet, [facility] #[id number], Partial fill upon patient request if the prescription is for a schedule II opioid drug., 165, cm, 01/11/21 14:05:00 EDT,... Start Date: 01/11/21 Status: Ordered propranolol 20 mg oral tablet 20 mg, 1, tablet, By Mouth, 2 times a day, # 60 tablet, Refills 5, Tot. Refills 5, Maintenance, 06/25/21 11:57:00 EST, Route to Pharmacy Electronically, [facility], Partial fill upon patient request if the prescription is for a schedule II opi... Start Date: 06/25/21 Status: Ordered PULL UPS PULL UPS, See Instructions, # 240 each, Refills 11, Tot. Refills 11, Maintenance, 8 A DAY X 30 DAYSLENGTH OF NEED: LIFETIME DX: INCONTINENCE SIZE EXTRA LARGE, 05/16/21 13:22:00 EDT, Compound Start Date: 05/16/21 Status: Ordered risperiDONE 1 mg oral tablet take 1 tablet by mouth twice a day Start Date: 05/23/19 Status: Ordered rOPINIRole 0.5 mg oral tablet 1 tablet, By Mouth, 3 times a day, # 90 tablet, 3 Refills, [facility], 165, cm, 06/25/21 11:35:00 EST, Height, 127, kg, 02/03/20 14:39:00 EDT, Dry Weight Start Date: 07/09/21 Status: Ordered rosuvastatin 10 mg oral tablet 1 tablet = 10 mg, By Mouth, Daily, # 90 tablet, 1 Refills, Maintenance, 05/20/21 15:53:00 EDT, Tablet, [facility], d/c rx for capsules, 165, cm, 02/28/21 14:22:00 EDT, Height, 127, kg, 02/03/20 14:39:00 EDT, Dry Weight Start Date: 05/20/21 Status: Ordered Trulicity Pen 1.5 mg/0.5 mL subcutaneous solution 0.5 mL = 1.5 mg, Subcutaneous Injection, Every week, take on same day every week, rotate injection sites E11.9, # 2 mL, 6 Refills, Maintenance, 07/23/21 10:03:00 EST, Solution, [facility] #[id number], Partial fill upon patient request if the p... Start Date: 07/23/21 Status: Ordered warfarin 2.5 mg oral tablet See Instructions, Dosing Subject To Change per INR Result per MD, # 30 each, 6 Refills, Maintenance, 06/12/21 17:09:00 EST, Tablet, [facility], Dosing Subject To Change per INR Result per MD,165, cm, 05/21/21 10:54:00 EDT, Height, 127, kg, 07... Start Date: 06/12/21 Status: Ordered warfarin 5 mg oral tablet See Instructions, Dosing Subject To Change Per INR Result per MD, # 30 each, 6 Refills, Maintenance, 06/12/21 17:05:00 EST, Tablet, [facility], PLEASE GIVE BOTH 5MG TABLETS AND 2.5MG TABLETS;DOSE CHANGES AND DEPENDSON INR, 165, cm, 05/21/21 1... Start Date: 06/12/21 Status: Ordered Problem List Condition Effective Dates Status Health Status Inform ant Arthritis of knee - bilateral(Confirmed) Active Bipolar disorder NOS(Confirmed) Active Overactive bladder(Confirmed) Active Cervical radiculopathy - left(Confirmed) Active Chronic back pain(Confirmed) Active Chronic deep vein thrombosis (DVT)(Confirmed) Active Chronic obstructive pulmonar y disease (COPD)(Confirmed) 1 Active Chronic pain syndrome(Confirmed) Active Cigarette smoker(Confirmed) 02/12/12 Active Straining with stools(Confirmed) Active DJD (degenerative joint dise ase), lumbar(Confirmed) 06/04/12 Active Essential tremor(Confirmed) Active Fibromyalgia(Confirmed) Active Anticoagulant long-term use(Confirmed) Active Gastric banding status(Confirmed) Active alf current use of opi ate analgesic(Confirmed) Active Type 2 diabetes mellitus wit h hyperglycemia(Confirmed) Active Hyperparathyroidism(Confirmed) Active Lymphedema(Confirmed) Active Obese class II(Confirmed) Active Severe obstructive sleep apnea-hypopnea syndrome(Confirmed) Active Paroxysmal atrial flutter(Confirmed) Active Prophylactic antibiotic - da jordan Pen VK for lymphedema , prevention of cellulitis(Confirmed) Active Pruritic rash(Confirmed) Active Pseudogout of knees(Confirmed) Active Pseudoseizures(Confirmed) Active PTSD - Post-traumatic stress disorder(Confirmed) Active Recurrent bacterial cystitis(Confirmed) Active Restless leg syndrome(Confirmed) Active Scoliosis(Confirmed) 06/04/12 Active Encounter for screening colonoscopy(Confirmed) Active Spinal stenosis, lumbar(Confirmed) 06/04/12 Active Stasis dermatitis(Confirmed) Active UI (urinary incontinence)(Confirmed) Active 1Mild obstruction on PFT's September 2011 Social History Social History Type Response Smoking Status 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
--- OUTSIDE RECORDS SUMMARY | 2024-01-02 21:12 | XMS_ITS | Continuity of Care Document ---
Author Organization [facility] Robin Jane Nolberto Address [address] [place] [address]- Care Team Providers Care Hot Shot Name Role Phone Kyle Ahumada DO Primary Care Physician [phone] Encounter [facility] Date(s): 06/03/23 - 06/10/23 [facility] Robin Bolañosley Adult [address] [place] [address]- Encounter Diagnosis Bipolar disorder NOS(Discharge Diagnosis) - 06/02/23 Chronic obstructive pulmonary disease (COPD)(Discharge Diagnosis) - 06/02/23 Congestive heart failure(Discharge Diagnosis) - 06/02/23 Paroxysmal atrial flutter(Discharge Diagnosis) - 06/02/23 Type 2 diabetes mellitus with hyperglycemia(Discharge Diagnosis) - 06/02/23 Fatigue(Discharge Diagnosis) - 06/02/23 Spinal stenosis, lumbar(Discharge Diagnosis) - 06/02/23 Sciatica(Discharge Diagnosis) - 06/02/23 Acute exacerbation of COPD with asthma(Discharge Diagnosis) - 06/03/23 Attending Physician: Kyle Ahumada DO Allergies, Adverse Reactions, Alerts Substance Reaction Severity Status Adhesive Bandage Active Dust copd exac/sinus congestion A ctive Immunizations Given and Recorded Vaccine Date Status Refusal Reason pneumococcal 20-valent conjugate vaccine 1 06/03/23 Given influenza virus vaccine, inactivated 2 06/03/23 Gi octavio influenza virus vaccine, inactivated 3 05/05/22 Gi octavio influenza virus vaccine, inactivated 4 06/25/21 Gi octavio influenza virus vaccine, inactivated 5 04/30/20 Gi octavio influenza virus vaccine, inactivated 6 05/23/19 Gi octavio influenza virus vaccine, inactivated 04/27/18 Give n influenza virus vaccine, inactivated 7 07/08/17 Gi octavio influenza virus vaccine, inactivated 8 04/01/17 Gi octavio influenza virus vaccine, inactivated 08/12/16 Jarrett rded influenza virus vaccine, inactivated 05/23/14 Give n influenza virus vaccine, inactivated 9 06/07/13 Gi octavio influenza virus vaccine, inactivated 04/09/11 Jarrett rded influenza virus vaccine, inactivated 03/18/10 Jarrett rded influenza virus vaccine, inactivated 04/21/09 Jarrett rded influenza virus vaccine, inactivated 06/19/08 Jarrett rded influenza virus vaccine, inactivated 05/10/07 Jarrett rded SARS-CoV-2 mRNA ([id number]) vax 08/30/21 Recorded SARS-CoV-2 (COVID-19) mRNA BNT-162b2 vac 01/02/21 Recorded SARS-CoV-2 (COVID-19) mRNA BNT-162b2 vac 12/02/20 Recorded Fluvirin (oldterm) 10 03/22/15 Given Fluzone Preservative-Free (oldterm) 11 03/12/12 Gi octavio pneumococcal 23-valent vaccine 10/08/11 Given tetanus/diphtheria/pertussis, acel(Tdap) 09/08/11 Given tetanus/diphtheria/pertussis, acel(Tdap) 12/17/06 Recorded influ virus vac, H1N1, inactive(oldterm) 12 05/08/11 Given hepatitis B adult vaccine 06/14/02 Recorded 1Result Comment: PCV 20 [facility]#[id number] 2Result Comment: Flu [facility]#[id number] 3Result Comment: [id number] 4Result Comment: [id number] 5Result Comment: [id number] 6Result Comment: [id number] 7Result Comment: [07/08/2017] [id number] 8Admin Note: [facility] 9Admin Note: [facility] 9-13 10Admin Note: Given at [facility] 11Admin Note: 12 GIVEN AT [facility] 12Admin Note: rcvd elsewhere Medications acetaminophen 325 mg oral tablet 2, tablet, By Mouth, Every 6 hours, PRN, # 100 tablet, Refills 5, Maintenance, NEEDED FOR MODERATE PAIN (VIAL), 04/23/23 12:55:00 EDT, Route to Pharmacy Electronically, [facility], 160, cm, 04/02/23 12:45:00 EDT, Height, 98.8, kg, 07/17/22... Start Date: 04/23/23 Status: Ordered Albuterol (Eqv-ProAir HFA) 90 mcg/inh inhalation aerosol See Instructions, INHALE 2 PUFFS BY MOUTH EVERY FOUR HOURS NEEDED FOR WHEEZING OR SHORTNESS OF BREATH, # 8.5 Gm, 5 Refills, Maintenance, 03/13/23 9:55:00 EDT, [facility], 30, INHALE 2 PUFFS BY MOUTH EVERY FOUR HOURS NEEDED FOR WHEEZING O... Start Date: 03/13/23 Status: Ordered amiodarone 200 mg oral tablet Refills 0, Maintenance, 03/02/23 9:55:00 EDT, Partial fill upon patient request if the prescriptionis for a schedule II opioid drug. Start Date: 03/02/23 Status: Ordered cloNIDine 0.1 mg oral tablet 1, tablet, By Mouth, 2 times a day, PRN, ANXIETY (VIAL., # 56 tablet, Refills 2, Maintenance, NEEDED, 05/09/23 20:57:00 EDT, Route to Pharmacy Electronically, [facility], 160, cm, 04/02/2312:45:00 EDT, Height, 98.8, kg, 07/17/22 8:58:00 ES... Start Date: 05/09/23 Status: Ordered cyclobenzaprine 5 mg oral tablet 1 tablet, By Mouth, 3 times a day, PRN NEEDED, SPASM (VIAL., # 90 tablet, 2 Refills, Maintenance, 06/08/23 9:15:00 EST, [facility], 160, cm, 06/03/23 11:30:00 EST, Height, 98.8, kg, 07/17/22 8:58:00 EST, Dry Weight Start Date: 06/08/23 Status: Ordered DilTIAZem (Eqv-Dilacor XR) 240 mg/24 hours oral capsule, extended release 1 capsule = 240 mg, By Mouth, Daily, # 90 capsule, 3 Refills, Maintenance, 03/13/23 17:04:00 EDT, CD Capsule, [facility], Partial fill upon patient request if the prescription is for a schedule II opioid drug., 160, cm, 03/02/23 9:56:00 EDT, H... Start Date: 03/13/23 Status: Ordered docusate sodium 100 mg oral capsule 100 mg, 1, capsule, By Mouth, 2 times a day, hold for loose stool, # 180 capsule, Refills 3, Tot. Refills 3, Maintenance, 03/13/23 16:56:00 EDT, Route to Pharmacy Electronically, [facility], Partial fill upon patient request if the prescriptio... Start Date: 03/13/23 Stop Date: 04/12/23 Status: Ordered duloxetine 20 mg oral enteric coated capsule 2 capsule = 40 mg, By Mouth, Daily at bedtime, # 60 capsule, 11 Refills, Maintenance, 06/25/21 12:00:00 EST, Capsule, [facility], Partial fill upon patient request if the prescription is for a schedule II opioid drug., 165, cm, 06/25/21 11:35:... Start Date: 06/25/21 Status: Ordered duloxetine 60 mg oral enteric coated capsule 1 capsule = 60 mg, By Mouth, Daily in AM, 0 Refills, Maintenance, 07/30/18 11:21:14 EST Start Date: 07/30/18 Status: Ordered furosemide 40 mg oral tablet 40 mg, 1, tablet, By Mouth, Daily, # 90 tablet, Refills 1, Tot. Refills 1, Maintenance, 03/02/23 18:12:00 EDT, Route to Pharmacy Electronically, [facility], Partial fill upon patient request if the prescription is for a schedule II opioid drug... Start Date: 03/02/23 Status: Ordered Hospital bed mattress Hospital bed mattress, See Instructions, # 1 each, Refills 0, Tot. Refills 0, Maintenance, Diagnosis spinal stenosis radiculopathy CHF needs to raise the head of the bed 30 degrees, 06/03/23 12:00:00EST, Supply Start Date: 06/03/23 Status: Ordered Hospital bed with capacity to adjust head elevation and just bed height Hospital bed with capacity to adjust head elevation and just bed height, See Instructions, # 1 each, Refills 0, Tot. Refills 0, Maintenance, Diagnosis spinal stenosis radiculopathy CHF needs to raisethe head of the bed 30 degrees, 06/03/23 12:00:00 E... Start Date: 06/03/23 Status: Ordered ipratropium nasal 21 mcg/inh spray 2 sprays = 42 mcg, Nares, Both, 2 times a day, # 30 mL, 5 Refills, Maintenance, 03/13/23 16:58:00 EDT, [place], [facility], Partial fill upon patient request if the prescription is for a schedule II opioid drug., 2 sprays Nares, Both 2 times a d... Start Date: 03/13/23 Status: Ordered lamotrigine 200 mg oral tablet 1 tablet = 200 mg, By Mouth, Daily at bedtime, 0 Refills, Maintenance, 07/18/22 8:57:00 EST, Tablet, Partial fill upon patient request if the prescription is for a schedule II opioid drug. Start Date: 07/18/22 Status: Ordered loratadine 10 mg oral tablet 1, tablet, By Mouth, Daily, R1., # 30 tablet, Refills 5, Maintenance, 02/07/23 18:12:00 EDT, Route to Pharmacy Electronically, [facility], 160, cm, 12/16/22 10:46:00 EDT, Height, 98.8, kg, 07/17/22 8:58:00 EST, Dry Weight Start Date: 02/07/23 Status: Ordered metoprolol tartrate 75 mg oral tablet 1 tablet = 75 mg, By Mouth, 2 times a day, 0 Refills, Maintenance, 07/04/22 10:22:00 EST, Partial fill upon patient request if the prescription is for a schedule II opioid drug. Start Date: 07/04/22 Status: Ordered nicotine 21 mg/24 hr transdermal film, extended release 1 patch, Topically, Daily, # 30 patch, 3 Refills, Maintenance, 06/08/23 9:15:00 EST, [facility], 30, APPLY 1 PATCH TOPICALLY DAILY, 160, cm, 06/03/23 11:30:00 EST, Height, 98.8, kg, 07/17/22 8:58:00 EST, Dry Weight Start Date: 06/08/23 Status: Ordered penicillin V potassium 250 mg oral tablet 1 tablet, By Mouth, 2 times a day, ^1R1,1R4., # 60 tablet, 5 Refills, Maintenance, 04/10/23 16:03:00 EDT, [facility], 160, cm, 04/02/23 12:45:00 EDT, Height, 98.8, kg, 07/17/22 8:58:00 EST, Dry Weight Start Date: 04/10/23 Status: Ordered rOPINIRole 0.5 mg oral tablet 1 tablet, By Mouth, 3 times a day, ^1R1,1R3,1R4., # 90 tablet, 5 Refills, Maintenance, 05/09/23 20:56:00 EDT, [facility], 160, cm, 04/02/23 12:45:00 EDT, Height, 98.8, kg, 07/17/22 8:58:00 EST, Dry Weight Start Date: 05/09/23 Status: Ordered rosuvastatin 10 mg oral tablet 1 tablet, By Mouth, Daily, ^1R1., # 30 tablet, 5 Refills, Maintenance, 02/07/23 18:12:00 EDT, [facility], [facility], cm, 12/16/22 10:46:00 EDT, Height, 98.8, kg, 07/17/22 8:58:00 EST, Dry Weight Start Date: 02/07/23 Status: Ordered Symbicort 160mcg/4.5mcg Inhaler 2, puffs, Inhalation, 2 times a day, # 10.2 Gm, Refills 11, Tot. Refills 11, Maintenance, 06/03/23 11:47:00 EST, Aerosol, Route to Pharmacy Electronically, NCPDP_[id number], [facility], 160, cm, 06/03/23 11:30:00 EST, Height, 98.8, kg, ... Start Date: 06/03/23 Status: Ordered Xarelto 20 mg oral tablet 1 tablet = 20 mg, By Mouth, Daily at supper, # 90 tablet, 1 Refills, Maintenance, 03/02/23 18:12:00EDT, Tablet[email or web address] pt was rx'd w diltiazem on d/c from recent hospitalization, 160, cm, 03/02/23 9:56:00 EDT, Height, 98.8, kg, 07/17/22... Start Date: 03/02/23 Status: Ordered Problem List Condition Confirmation Course Effective Dates Status Health Status Informant Acute exacerbation of COPD with asthma Confirmed Active Arthritis of knee - bilateral Confirmed Active Bipolar disorder NOS Confirmed Active Overactive bladder Confirmed Active Cervical radiculopathy - left Confirmed Active Chronic back pain Confirmed Active Chronic deep vein thrombosis (DVT) Confirmed Active Chronic obstructive pulmonary disease (COPD) 1 Confirmed Active Chronic pain syndrome Confirmed Active Cigarette smoker Confirmed 02/12/12 Active Congestive heart failure Confirmed Active Straining with stools Confirmed Active DJD (degenerative joint disease), lumbar Confirmed 06/04/12 Active Essential tremor Confirmed Active Fatigue Confirmed Active Fibromyalgia Confirmed Active Anticoagulant long-term use Confirmed Active Gastric banding status Confirmed Active alf current use of opiate analgesic Confirmed Active Type 2 diabetes mellitus with hyperglycemia Confirmed Active Hyperparathyroidism Confirmed Active Lymphedema Confirmed Active Nausea Confirmed Active Severe obstructive sleep apnea-hypopnea syndrome Confirmed Active Paroxysmal atrial flutter Confirmed Active Prophylactic antibiotic - daily Pen VK for lymphedema , prevention of cellulitis Confirmed Active Pruritic rash Confirmed Active Pseudogout of knees Confirmed Active Pseudoseizures Confirmed Active PTSD - Post-traumatic stress disorder Confirmed Active Recurrent bacterial cystitis Confirmed Active Restless leg syndrome Confirmed Active Sciatica Confirmed Active Scoliosis Confirmed 06/04/12 Active Encounter for screening colonoscopy Confirmed Active Severe obesity Confirmed Active Persistent moderate somatic symptom disorder with predominant pain Confirmed Active Spinal stenosis, lumbar Confirmed 06/04/12 Active Stasis dermatitis Confirmed Active UI (urinary incontinence) Confirmed Active 1Mild obstruction on PFT's September 2011 Diagnosis Diagnosis Type Effective Dates Health Status Clinical Service Informant Bipolar disorder NOS Discharge Diagnosis 06/02/23 Chronic obstructive pulmonary disease (COPD) Discharge Diagnosis 06/02/23 Congestive heart failure Discharge Diagnosis 06/02/23 Paroxysmal atrial flutter Discharge Diagnosis 06/02/23 Type 2 diabetes mellitus with hyperglycemia Discharge Diagnosis 06/02/23 Fatigue Discharge Diagnosis 06/02/23 Spinal stenosis, lumbar Discharge Diagnosis 06/02/23 Sciatica Discharge Diagnosis 06/02/23 Acute exacerbation of COPD with asthma Discharge Diagnosis 06/03/23 Vital Signs Most recent to oldest [Reference Range]: 1 Height 160 cm (06/03/23 11:30 AM) Weight 111.2 kg (06/03/23 11:30 AM) Oxygen Saturation [94-100 %] 99 % (06/03/23 11:30 AM) Pulse Rate [55-90 bpm] 70 bpm (06/03/23 11:30 AM) Body Mass Index [18.5-24.99 kg/m2] 43.44 kg/m2 *>HHI* (06/03/23 11:30 AM) Blood Pressure [90-138/55-84 mm Hg] 106/ 50mm Hg (06/03/23 11:30 AM) Blood pressure sites Arm, right (06/03/23 11:30 AM) Social History Social History Type Response Smoking Status Current every day sm oker; Type: Cigarettes; Other: 1 pack daily; entered on: 04/19/18 Sex Female Note * Aaliyah Holm: PERFORM, SIGN, VERIFY Event Display: Patient Education/Instruction Authored Date: [id number] [facility] *BMP So [facility] Clinical Summary Name FRANKLIN HARRISON Age 57 Years 1965 PCP Kyle Ahumada DO PCP Visit Date 06/03/2023 11:25:00 Patient Instructions Prednisone pills increase dose of symbicort increase albuterol inhaler to up to 4 x?? a day as needed for breathing Follow-up with??endocrinology as planned Follow-up with [facility] as planned Follow-up with cardiology as planned Getting the updated COVID-vaccine and the new RSV vaccine at your local pharmacy Additional Instructions: Scheduled Appointments?? Future Appointments ?*[facility] ?[address]??[place],??[place],??[address] ?Phone:??--?Fax:??-- ?Appt. Date:??08/13/2023?11:20 AM ?Scheduled Provider:??Donnie GRIDER , Sayda Gilbert Follow-Up Instructions ?? With: Address: When: f/u 2 months Comments: 40 mins Diagnosis Heart failure, unspecified; Unspecified atrial flutter; Type 2 diabetes mellitus with hyperglycemia; Sciatica, unspecified side; Chronic obstructive pulmonary disease with (acute) exacerbation; Bipolar disorder, unspecified; Chronic obstructive pulmonary disease, unspecified; Other fatigue; Spinal stenosis, lumbar region without neurogenic claudication Medications: Please continue your medications until treatment is completed or stopped by your provider. Discuss any questions related to medications with your provider. New Medications [facility], [address] [place] [address] [phone], [phone] PredniSONE (predniSONE 20 mg oral tablet) 2 tab(s) Oral Daily for 5 Days. Refills: 0. Next Dose: - Miscellaneous Rx (Hospital bed mattress) Diagnosis spinal stenosis radiculopathy CHF needs to raisethe head of the bed 30 degrees. Refills: 0. Next Dose: Miscellaneous Rx (Hospital bed with capacity to adjust head elevation and just bed height) Diagnosis spinal stenosis radiculopathy CHF needs to raise the head of the bed 30 degrees. Refills: 0. Next Dose: Medications to Continue Taking That Have Changed [facility], [address] [place] [address] [phone], [phone] - Budesonide-Formoterol (Symbicort 160mcg/4.5mcg Inhaler) 2 puff(s) Inhalation twice a day. Refills: 11. Next Dose: Medications to Continue with No Changes These medications were not printed or sent to your pharmacy Acetaminophen (acetaminophen 325 mg oral tablet) 2 tab(s) Oral every 6 hours as needed NEEDED FOR MODERATE PAIN (VIAL). Refills: 5. Next Dose: Albuterol (Albuterol (Eqv-ProAir HFA) 90 mcg/inh inhalation aerosol) INHALE 2 PUFFS BY MOUTH EVERY FOUR HOURS NEEDED FOR WHEEZING OR SHORTNESS OF BREATH. Refills: 5. Next Dose: amiODARONE (amiodarone 200 mg oral tablet) Next Dose: Clonidine (cloNIDine 0.1 mg oral tablet) 1 tab(s) Oral twice a day as needed. ANXIETY (VIAL.. Refills: 2. Next Dose: Cyclobenzaprine (cyclobenzaprine 5 mg oral tablet) 1 tab(s) Oral 3 times a day as needed Spasm. canincrease to 2 three time a day if needed. Refills: 2. Next Dose: Diltiazem (DilTIAZem (Eqv-Dilacor XR) 240 mg/24 hours oral capsule, extended release) 1 capsule Oral Daily. Refills: 3. Next Dose: Docusate (docusate sodium 100 mg oral capsule) 1 capsule Oral twice a day. hold for loose stool. Refills: 3. Next Dose: Duloxetine (duloxetine 20 mg oral enteric coated capsule) 2 capsule Oral Daily at Bedtime. Refills:11. Next Dose: Duloxetine (duloxetine 60 mg oral enteric coated capsule) 1 capsule Oral Daily in the morning. Next Dose: Furosemide (furosemide 40 mg oral tablet) 1 tab(s) Oral Daily. Refills: 1. Next Dose: Ipratropium Nasal (ipratropium nasal 21 mcg/inh spray) 2 spray(s) Nares, Both twice a day. Refills:5. Next Dose: Lamotrigine (lamotrigine 200 mg oral tablet) 1 tab(s) Oral Daily at Bedtime. Next Dose: Loratadine (loratadine 10 mg oral tablet) 1 tab(s) Oral Daily. R1.. Refills: 5. Next Dose: Metoprolol (metoprolol tartrate 75 mg oral tablet) 1 tab(s) Oral twice a day. Next Dose: Nicotine (nicotine 21 mg/24 hr transdermal film, extended release) 1 patch Topically Daily. Refills: 3. Next Dose: penicillin V potassium (penicillin V potassium 250 mg oral tablet) 1 tab(s) Oral twice a day. ^1R1,1R4.. Refills: 5. Next Dose: rivaroxaban (Xarelto 20 mg oral tablet) 1 tab(s) Oral Daily at supper. Refills: 1. Next Dose: Ropinirole (rOPINIRole 0.5 mg oral tablet) 1 tab(s) Oral 3 times a day. ^1R1,1R3,1R4.. Refills: 5. Next Dose: Rosuvastatin (rosuvastatin 10 mg oral tablet) 1 tab(s) Oral Daily. ^1R1.. Refills: 5. Next Dose: Allergy Info:?? Dust; Adhesive Bandage Medications Given This Visit Future Orders ?Comprehensive Metabolic Panel? Order Date:06/03/23?- Complete on or after?06/03/23 ?Lipid Panel Non Fasting? Order Date:06/03/23?- Complete on or after?06/03/23 ?CBC w/ Differential? Order Date:06/03/23?- Complete on or after?06/03/23 ?Microalbumin Urine? Order Date:06/03/23?- Complete on or after?06/03/23 ?Hemoglobin A1C (Monitoring)? Order Date:06/03/23?- Complete on or after?06/03/23 Vital Signs Height 160 cm Weight 111.2 kg BMI 43.44 kg/m2 Blood Pressure 106 mm Hg/50 mm Hg Temperature Pulse Rate 70 bpm Respiratory Rate 02 Sat Mode of Delivery 99 %/ You can now view a summary of your hospital visit from the comfort of your home through a free online portal called [employer]. [employer] is a website that allows you to securely view your medical information including discharge summary, medications and follow-up visits. ??You can alsosend a secure electronic message to your doctor???s office to request appointments, renew medications or just ask a question. You can enroll at [email or web address] or register during your next office visit. Disclaimer:?? The information provided is of a general nature and is intended to be used in conjunction with the recommendations and advice of your health care practitioner. ??Every effort has been made to ensure that the information provided is accurate and complete at the time it is provided to you however, as your needs change, or, as new ??information becomes available, different or additional instructions may be required. If you have questions, please consult with your primary care provider or pharmacist, as appropriate. ??This information is not intended to serve as substitution for assessment and evaluation by a qualified health care provider. If you do not have a primary care provider, you may find a [facility] provider by calling [facility] [employer] at [phone]. [facility], in keeping with [facility] guidance, no longer requires face masks for staff, patientsor visitors in most situations. Similar to time spent indoors at other locations, there is the chance that you were exposed to respiratory viruses during your time with us (such as flu or COVID-19).? If you develop symptoms concerning for a viral respiratory infection, please seek testing (and treatment if indicated) from your medical provider or home test kit. For information about the plan of care including goals and instructions for your diagnosis, please see the patient education orders section of this document. Patient Education Materials?? The content of this educational material or handout may have been modified, supplemented, or adapted from its original content and format to support your individualized medical care. Patient Care team information Care Team Personnel Name: Sandra Wills NP Position: [facility] PCO Associate Professional Member Role: Primary Care Nurse Address: Address: [address] [place] [address] [place] [address]- Name: Marley Alejo RN Position: [facility] RN Member Role: Primary Care Nurse Name: Alma Delia Fonseca PharmD Position: [facility] Associate Professional Member Role: [employer] Provider Address: Address: [address] [place] [address] [place] [address]- [place] Name: Yolis Mattson RN Position: [facility] RN Member Role: Primary Care Nurse Name: Priscila Garzon RN Position: [facility] RN Member Role: Primary Care Nurse Name: Kyle Ahumada DO Position: [facility] Physician - Primary Care Member Role: PCP Address: Address: [address] [place] [phone]- [place] Name: Renea Mart RN Position: [facility] RN Member Role: Primary Care Nurse Care Team Related Persons Name: FAUZIA JANSEN Address: [address] [place] [address] Name: AURELIA SHETH Address: home [address] [place] [address] Name: BRE OSORIO Address: home [address] [place] [address]
--- OUTSIDE RECORDS SUMMARY | 2024-01-02 21:12 | XMS_ITS | Continuity of Care Document ---
Author Organization [facility] Address [address] [place] [address]- Care Team Providers Care Assistant Credit Manager Name Role Phone Krishan GRIDER, Eulogio Molina Primary Care Physician Encounter 07/19/22 - 07/28/22 [facility] [address] [place] [address]- Discharge Disposition: CLIENT NO LONGER REQUIRES SKILLED CARE Allergies, Adverse Reactions, Alerts Substance Reaction Severity Status Adhesive Bandage Active Dust copd exac/sinus congestion A ctive Immunizations Given and Recorded Vaccine Date Status Refusal Reason influenza virus vaccine, inactivated 1 05/05/22 Gi octavio influenza virus vaccine, inactivated 2 06/25/21 Gi octavio influenza virus vaccine, inactivated 3 04/30/20 Gi octavio influenza virus vaccine, inactivated 4 05/23/19 Gi octavio influenza virus vaccine, inactivated 04/27/18 Give n influenza virus vaccine, inactivated 5 07/08/17 Gi octavio influenza virus vaccine, inactivated 6 04/01/17 Gi octavio influenza virus vaccine, inactivated 08/12/16 Jarrett rded influenza virus vaccine, inactivated 05/23/14 Give n influenza virus vaccine, inactivated 7 06/07/13 Gi octavio influenza virus vaccine, inactivated 04/09/11 Jarrett rded influenza virus vaccine, inactivated 03/18/10 Jarrett rded influenza virus vaccine, inactivated 04/21/09 Jarrett rded influenza virus vaccine, inactivated 06/19/08 Jarrett rded influenza virus vaccine, inactivated 05/10/07 Jarrett rded SARS-CoV-2 mRNA ([id number]) vax 08/30/21 Recorded SARS-CoV-2 (COVID-19) mRNA BNT-162b2 vac 01/02/21 Recorded SARS-CoV-2 (COVID-19) mRNA BNT-162b2 vac 12/02/20 Recorded Fluvirin (oldterm) 8 03/22/15 Given Fluzone Preservative-Free (oldterm) 9 03/12/12 Giv en pneumococcal 23-valent vaccine 10/08/11 Given tetanus/diphtheria/pertussis, acel(Tdap) 09/08/11 Given tetanus/diphtheria/pertussis, acel(Tdap) 12/17/06 Recorded influ virus vac, H1N1, inactive(oldterm) 10 05/08/11 Given hepatitis B adult vaccine 06/14/02 Recorded 1Result Comment: [id number] 2Result Comment: [id number] 3Result Comment: [id number] 4Result Comment: [id number] 5Result Comment: [07/08/2017] [id number] 6Admin Note: [facility] 7Admin Note: [facility] - 8Admin Note: Given at [facility] 9Admin Note: 03-11-12 GIVEN AT [facility] 10Admin Note: rcvd elsewhere Medications acetaminophen 325 mg oral tablet 650 mg, By Mouth, Every 6 hours, May take OTC, follow directions on bottle, Refills 0, Maintenance,01/11/22 7:23:00 EDT, Partial fill upon patient request if the prescription is for a schedule II opioid drug. Start Date: 01/11/22 Status: Ordered Albuterol (Eqv-ProAir HFA) 90 mcg/inh inhalation aerosol See Instructions, INHALE 2 PUFFS BY MOUTH EVERY FOUR HOURS NEEDED FOR WHEEZING OR SHORTNESS OF BREATH, # 8.5 Gm, 4 Refills, Maintenance, 04/28/22 13:11:00 EDT, [facility], 17, INHALE 2 PUFFS BY MOUTH EVERY FOUR HOURS NEEDED FOR WHEEZING... Start Date: 04/28/22 Status: Ordered celecoxib 200 mg oral capsule 1 capsule = 200 mg, By Mouth, Daily in AM, 0 Refills, Maintenance, 07/18/22 8:57:00 EST, Capsule, Partial fill upon patient request if the prescription is for a schedule II opioid drug. Start Date: 07/18/22 Status: Ordered cloNIDine 0.1 mg oral tablet 0.1 mg, 1, tablet, By Mouth, 2 times a day before breakfast and dinne, PRN, Refills 0, Maintenance,Anxiety, 07/18/22 8:56:00 EST, Partial fill upon patient request if the prescription is for a schedule II opioid drug. Start Date: 07/18/22 Status: Ordered colchicine 0.6 mg oral tablet 0.6 mg, 1, tablet, By Mouth, Daily, # 30 tablet, Refills 11, Tot. Refills 11, Maintenance, :00:00 EDT, Route to Pharmacy Electronically, [facility], Partial fill upon patient request if the prescription is for a schedule II opioid dr... Start Date: 10/30/21 Status: Ordered docusate sodium 100 mg oral capsule 100 mg, 1, capsule, By Mouth, 2 times a day, hold for loose stool, # 60 capsule, Refills 0, Tot. Refills 0, Maintenance, 01/11/22 7:25:00 EDT, Route to Pharmacy Electronically, [facility], Partial fill upon patient request if the prescri... Start Date: 01/11/22 Stop Date: 02/10/22 Status: Ordered duloxetine 20 mg oral enteric coated capsule 2 capsule = 40 mg, By Mouth, Daily at bedtime, # 60 capsule, 11 Refills, Maintenance, 06/25/21 12:00:00 EST, Capsule, [facility], Partial fill upon patient request if the prescription is for a schedule II opioid drug., 165, cm, 06/25/21 11:35:... Start Date: 06/25/21 Status: Ordered duloxetine 60 mg oral enteric coated capsule 1 capsule = 60 mg, By Mouth, Daily in AM, 0 Refills, Maintenance, 07/30/18 11:21:14 EST Start Date: 07/30/18 Status: Ordered lamotrigine 200 mg oral tablet 1 tablet = 200 mg, By Mouth, Daily at bedtime, 0 Refills, Maintenance, 07/18/22 8:57:00 EST, Tablet, Partial fill upon patient request if the prescription is for a schedule II opioid drug. Start Date: 07/18/22 Status: Ordered loratadine 10 mg oral tablet 1, tablet, By Mouth, Daily, R1., # 90 tablet, Refills 1, Maintenance, 07/17/22 17:07:00 EST, Route to Pharmacy Electronically, [facility], 160, cm, 07/17/22 12:03:00 EST, Height, 98.8, kg, 07/17/22 8:58:00 EST, Dry Weight Start Date: 07/17/22 Status: Ordered Maalox Plus Liquid 30 mL, By Mouth, Every 4 hours, PRN Other, Heartburn, 0 Refills, Maintenance, 07/18/22 8:57:00 EST,Suspension, Partial fill upon patient request if the prescription is for a schedule II opioid drug. Start Date: 07/18/22 Status: Ordered metoprolol tartrate 75 mg oral tablet 1 tablet = 75 mg, By Mouth, 2 times a day, 0 Refills, Maintenance, 07/04/22 10:22:00 EST, Partial fill upon patient request if the prescription is for a schedule II opioid drug. Start Date: 07/04/22 Status: Ordered Milk of Magnesia Liquid 30 mL, By Mouth, Daily, PRN Constipation, 0 Refills, Maintenance, 07/18/22 8:57:00 EST, Suspension,Partial fill upon patient request if the prescription is for a schedule II opioid drug. Start Date: 07/18/22 Status: Ordered MiraLax Powder 1 pack/packet = 17 Gm, By Mouth, Daily, PRN Constipation, 0 Refills, Maintenance, 07/18/22 8:57:00 EST, Powder, Partial fill upon patient request if the prescription is for a schedule II opioid drug. Start Date: 07/18/22 Status: Ordered Multaq 400 mg oral tablet 1 tablet = 400 mg, By Mouth, 2 times a day, # 60 tablet, 0 Refills, Maintenance, 07/17/22 9:06:00 EST, Tablet, Partial fill upon patient request if the prescription is for a schedule II opioid drug. Start Date: 07/17/22 Status: Ordered pantoprazole 40 mg oral delayed release tablet = 40 mg, By Mouth, Daily in AM, 0 Refills, Maintenance, 07/18/22 8:57:00 EST, EC Tablet Start Date: 07/18/22 Status: Ordered penicillin V potassium 250 mg oral tablet 1 tablet = 250 mg, By Mouth, 2 times a day, 0 Refills, Maintenance, 07/18/22 8:56:00 EST, Tablet, Partial fill upon patient request if the prescription is for a schedule II opioid drug. Start Date: 07/18/22 Status: Ordered rOPINIRole 0.5 mg oral tablet See Instructions, TAKE 1 TABLET BY MOUTH THREE TIMES DAILY^1R1,1R3,1R4, # 90 tablet, 5 Refills, Maintenance, 07/24/22 23:41:00 EST, [facility], 160, cm, 07/18/22 11:39:00 EST, Height, 98.8, kg, 07/17/22 8:58:00 EST, Dry Weight Start Date: 07/24/22 Status: Ordered rosuvastatin 5 mg oral tablet 2 tablet = 10 mg, By Mouth, Daily at bedtime, 0 Refills, Maintenance, 07/18/22 8:56:00 EST, Tablet,Partial fill upon patient request if the prescription is for a schedule II opioid drug. Start Date: 07/18/22 Status: Ordered senna 187 mg oral tablet 1 tablet = 8.6 mg, By Mouth, Daily at bedtime, PRN as needed for constipation, 0 Refills, Maintenance, 07/18/22 8:57:00 EST, Tablet, Partial fill upon patient request if the prescription is for a schedule II opioid drug. Start Date: 07/18/22 Status: Ordered Spiriva Respimat 1.25 mcg/inh inhalation aerosol See Instructions, INHALE 2 PUFFS BY MOUTH DAILY, # 4 Gm, 5 Refills, Maintenance, 07/17/22 11:09:00 EST, [facility], 160, cm, 07/17/22 8:49:00 EST, Height, 98.8, kg, 07/17/22 8:58:00 EST, Dry Weight Start Date: 07/17/22 Status: Ordered Symbicort 80mcg/4.5mcg Inhaler See Instructions, INHALE 2 PUFFS BY MOUTH TWICE A DAY RINSE MOUTH AND THROAT AFTER USE, # 10.2 Gm, Refills 5, Instructions Replace Required Details, Route to Pharmacy Electronically, [facility]CPDP_[id number], [facility], 159, cm, 01/11/22 15:15:00 EDT... Start Date: 02/13/22 Status: Ordered warfarin 1 mg oral tablet See Instructions, Take 1-10 tabs daily as directed by [facility]., # 150 tablet, 0 Refills, Maintenance, 07/18/22 8:55:00 EST, Tablet, [facility], Partial fill upon patient request if the prescription is for a schedule II opioid drug., 160, cm... Start Date: 07/18/22 Status: Ordered Problem List Condition Confirmation Course Effective Dates Status Health Status Informant Arthritis of knee - bilateral Confirmed Active Bipolar disorder NOS Confirmed Active Overactive bladder Confirmed Active Cervical radiculopathy - left Confirmed Active Chronic back pain Confirmed Active Chronic deep vein thrombosis (DVT) Confirmed Active Chronic obstructive pulmonary disease (COPD) 1 Confirmed Active Chronic pain syndrome Confirmed Active Cigarette smoker Confirmed 02/12/12 Active Straining with stools Confirmed Active DJD (degenerative joint disease), lumbar Confirmed 06/04/12 Active Essential tremor Confirmed Active Fibromyalgia Confirmed Active Anticoagulant long-term use Confirmed Active Gastric banding status Confirmed Active 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 Active Type 2 diabetes mellitus with hyperglycemia Confirmed Active Hyperparathyroidism Confirmed Active Lymphedema Confirmed Active Severe obstructive sleep apnea-hypopnea syndrome Confirmed Active Paroxysmal atrial flutter Confirmed Active Prophylactic antibiotic - daily Pen VK for lymphedema , prevention of cellulitis Confirmed Active Pruritic rash Confirmed Active Pseudogout of knees Confirmed Active Pseudoseizures Confirmed Active PTSD - Post-traumatic stress disorder Confirmed Active Recurrent bacterial cystitis Confirmed Active Restless leg syndrome Confirmed Active Scoliosis Confirmed 06/04/12 Active Encounter for screening colonoscopy Confirmed Active Severe obesity (BMI 35.0-39.9) with comorbidity Confirmed Active Persistent moderate somatic symptom disorder with predominant pain Confirmed Active Spinal stenosis, lumbar Confirmed 06/04/12 Active Stasis dermatitis Confirmed Active UI (urinary incontinence) Confirmed Active 1Mild obstruction on PFT's September 2011 Social History Social History Type Response Smoking Status 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 Female Patient Care team information Care Team Personnel Name: Sandra Wills NP Position: [facility] PCO Associate Professional Member Role: Primary Care Nurse Address: Address: [address] [place] [address] [place] [address]- [place] Name: Marley Alejo RN Position: [facility] ED RN W/OE and Tasks Member Role: Primary Care Nurse Name: Eulogio Nickerson MD Position: [facility] Primary Care Physician Member Role: PCP Address: Address: [address] [place] [address]- [place] Name: Alma Delia Fonseca PharmD Position: [facility] Associate Professional Member Role: Lifetime Consult[employer] Provider Address: Address: [address] [place] [address] [place] [address]- [place] Name: Yolis Mattson RN Position: S RN Member Role: Primary Care Nurse Name: Priscila Garzon RN Position: S RN Member Role: Primary Care Nurse Name: Renea Mart RN Position: S RN Member Role: Primary Care Nurse Care Team Related Persons Name: AYDENYOHANNESFAUZIA Address: home [address] [place] [address] Name: AURELIA SHETH Address: home [address] [place] [address] Name: BRE OSORIO Address: home [address] [place] [address]
--- OUTSIDE RECORDS SUMMARY | 2024-01-02 21:12 | XMS_ITS | Continuity of Care Document ---
Author Organization [facility] Robin Jane Nolberto lt Address [address] [place] [address]- Care Team Providers Care Sprayer Automatic Spray Machine Name Role Phone Fuentes Garcia MD Primary Care Physician [facility]counter [facility] Date(s): 01/23/20 - 02/22/20 [facility] [address] [place] [address]- [facility] Allergies, Adverse Reactions, Alerts Substance Reaction Severity [...] H1N1, inactive(oldterm) 7 05/08/11 Given 1Result Comment: [id number] 2Result Comment: [07/08/2017] [id number] 3Admin Note: [facility] 4Admin Note: [facility] - 5Admin Note: Given at [facility] 6Admin Note: 03-11-12 GIVEN AT [facility] 7Admin Note: rcvd elsewhere Medications Acetaminophen = 650 mg, By Mouth, Every 4 hours, PRN Pain , Mild, 0 Refills, Maintenance, 11/14/14 2:27:05 Start Date: 06/09/14 Status: Ordered BiPAP [...] 12/06/19 9:16:00 EDT, Route to Pharmacy Electronically, [facility] #[id number], please schedule appt for further refills, 162, cm, 09/21/19 12:01:00 Heig. JUDIT.. Start Date: 12/06/19 Status: Ordered Claritin 10 mg oral tablet 10 mg, 1, tablet, By Mouth, Daily, for 30 days, # 30 tablet, Refills 11, Tot. Refills 11, Acute 05/11/20 17:36:41 EDT, 05/17/19 17:36:41 EDT, Route to Pharmacy Electronically, [id number], [facility] [address] Start Date: 05/17/19 Stop Date: 05/11/20 Status: Ordered colchicine 0.6 mg oral tablet See Instructions, take 1 tablet by mouth once daily if needed for PSEUDOGOUT pain, # 30 tablet, Refills 5, Tot. Refills 5, Soft Stop, 01/05/20 8:41:00 EDT, Instructions Replace Required Details, Route to Pharmacy Electronically, [facility] #... Start Date: 01/05/20 Status: Ordered [...] Gm, 1 Refills, Maintenance, 12/20/19 16:30:00 EDT, [facility] #[id number], 162, cm, 09/21/19 12:01:00 EST, Height, 116.4, [...] mL, 5 Refills, Maintenance, 10/01/18 10:08:42 EST, Colon, 2 sprays Nares, Both 2 times a [...] 5:11:27, Tablet Start Date: 08/10/15 Status: Ordered metoprolol 25 mg oral tablet 25 mg, 1, tablet, By Mouth, 2 times a day, # 60 tablet, Refills 5, Tot. Refills 5, Maintenance, 09/28/19 11:53:00 EST, Route to Pharmacy Electronically, [facility] #[id number], 162, cm, 09/21/2011:01:00 EST, Height, 116.4, kg, [...] TO FILL LESS THAN PRESCRIBED AMOUNT, # 78 tablet, 0 Refills, Maintenance, 01/30/20 17:23:00 EDT, Tablet, [facility] #[id number], 02/02/20, 165, cm, 01/16/20 6:17:00 EDT, Hei... Start Date: 01/30/20 Stop Date: 02/25/20 Status: Ordered penicillin V potassium 250 mg [...] 11 Refills, Soft Stop, 01/19/20 11:46:00 EDT, [facility] #[id number], 165, cm, 01/16/20 6:17:00 EDT, Height, 128.1, kg, 01/16/20 6:17:00 EDT, Dry Weight Start Date: 01/19/20 Status: Ordered warfarin 5 mg oral tablet 1 tablet = 5 mg, By Mouth, Daily, dosing subject to change pending inr lab values, # 30 tablet, 5 Refills, Maintenance, 02/15/20 13:21:00 EDT, Tablet, [facility] #[id number], 165, cm, 02/03/20 14:39:00 EDT, Height, 127, kg, 02/03/20 14:39:00 EDT,... 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
--- OUTSIDE RECORDS SUMMARY | 2024-01-02 21:12 | XMS_ITS | Continuity of Care Document ---
Author Organization [facility] Valerie n's [facility] Address [address] [place] [address], [address] [place] [address]- Care Team Providers Care Emergency Medicine Medical Director Name Role Phone Radha GRIDER, Fuentes Kenny Primary Care Physician [phone] Encounter [facility] Date(s): 03/22/20 - [facility]/21/20 [facility] [address] [place] [address]- [facility] Allergies, Adverse Reactions, Alerts Substance Reaction Severity [...] H1N1, inactive(oldterm) 7 05/08/11 Given 1Result Comment: [id number] 2Result Comment: [07/08/2017] [id number] 3Admin Note: [facility] 4Admin Note: [facility] [...] 12/06/19 9:16:00 EDT, Route to Pharmacy Electronically, [facility] #[id number], please schedule appt for further refills, 162, cm, 09/21/19 12:01:00 Laurie SPAIN... Start Date: 12/06/19 Status: Ordered Claritin 10 mg oral tablet 10 mg, 1, tablet, By Mouth, Daily, for 30 days, # 30 tablet, Refills 11, Tot. Refills 11, Acute 05/11/20 17:36:41 EDT, 05/17/19 17:36:41 EDT, Route to Pharmacy Electronically, [id number], [facility] - [address] [place] [address] Start Date: 05/17/19 Stop Date: 05/11/20 Status: Ordered colchicine 0.6 mg oral tablet See Instructions, take 1 tablet by mouth once daily if needed for PSEUDOGOUT pain, # 30 tablet, Refills 5, Tot. Refills 5, Soft Stop, 01/05/20 8:41:00 EDT, Instructions Replace Required Details, Route to Pharmacy Electronically, [facility] #... Start Date: 01/05/20 Status: Ordered Disposable Absorbant Pads 23 x 36 in Disposable Absorbant Pads 23 x 36 in, See Instructions, # 90 each, Refills 11, Tot. Refills 11, Maintenance, Use three times a day DX: overactive bladder, stress urinary incontinence, 12/07/18 13:46:54 EDT, Compound Start Date: 12/07/18 Status: Ordered doxycycline hyclate 100 mg oral tablet 1 capsule, By Mouth, Every 12 hours, for 7 days, # 14 capsule, 0 Refills, Acute 04/27/20 15:15:00 EDT, 04/20/20 15:15:00 EDT, Capsule, [facility] #[id number], 165, cm, 02/03/20 14:39:00 EDT, Height, 127, kg, 02/03/20 14:39:00 EDT, Dry Weight Start Date: 04/20/20 Stop Date: 04/27/20 Status: Ordered Duloxetine = 40 mg, By [...] Gm, 1 Refills, Maintenance, 12/20/19 16:30:00 EDT, [facility] #[id number], 162, cm, 09/21/19 12:01:00 EST, Height, 116.4, [...] mL, 5 Refills, Maintenance, 10/01/18 10:08:42 EST, [place], 2 sprays Nares, Both 2 times a [...] 1 capsule = 100 mg, By Mouth, 2 times a day, for 10 days, # 20 capsule, 0 Refills, Acute 04/27/20 16:20:00 EDT, 04/17/20 16:20:00 EDT, Capsule, [facility] #[id number], 165, cm, 02/03/20 14:39:00EDT, Height, 127, kg, 02/03/20 14:39:00 EDT, Dry We... Start Date: 04/17/20 Stop Date: 04/27/20 Status: Ordered metoprolol 25 mg oral tablet 25 mg, 1, tablet, By Mouth, 2 times a day, # 60 tablet, Refills 5, Tot. Refills 5, Maintenance, 03/22/20 16:34:00 EDT, Route to Pharmacy Electronically, [facility] #[id number], 165, cm, 02/02/2014:39:00 EDT, Height, 127, kg, 02/03/20 14:39:00 ED... Start Date: 03/22/20 Status: Ordered NARCAN NASAL SPRAY WITH SUPPLIES [...] AMOUNT, # 84 tablet, 0 Refills, Maintenance, 03/26/20 17:11:00 EDT, Tablet, [facility] #[id number], 03/27/20, 165, cm, 02/03/20 14:39:00 EDT, He... Start Date: 03/26/20 Stop Date: 04/23/20 Status: Ordered penicillin V potassium 250 mg [...] 11 Refills, Soft Stop, 01/19/20 11:46:00 EDT, [facility] #[id number], 165, cm, 01/16/20 6:17:00 EDT, Height, 128.1, kg, 01/16/20 6:17:00 EDT, Dry Weight Start Date: 01/19/20 Status: Ordered warfarin 5 mg oral tablet 1 tablet = 5 mg, By Mouth, Daily, dosing subject to change pending inr lab values, # 30 tablet, 5 Refills, Maintenance, 02/15/20 13:21:00 EDT, Tablet, [facility] #[id number], 165, cm, 02/03/20 14:39:00 EDT, Height, 127, [...] long-term use(Confirmed) Active Gastric banding status(Confirmed) Active long-term current use of 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
--- OUTSIDE RECORDS SUMMARY | 2024-01-02 21:12 | XMS_ITS | Continuity of Care Document ---
Author Organization [facility] Nolberto Address [address] [place] [address]- Care Team Providers Care President And Chief Executive Officer Name Role Phone Radha GRIDER, Fuentes Kenny Primary Care Physician [facility] Date[facility]): 11/28/20 - 12/28/20 [facility] Adult [address] [place] [address]- Allergies, Adverse Reactions, Alerts Substance Reaction Severity [...] H1N1, inactive(oldterm) 8 05/08/11 Given 1Result Comment: [id number] 2Result Comment: [id number] 3Result Comment: [07/08/2017] 57021-516-20 4Admin Note: [facility] 5Admin Note: [facility] 04-08 6Admin Note: Given at [facility] 7Admin Note: [...] 11 Refills, Maintenance, 10/31/20 14:14:00 EDT, Cream, [facility] #[id number], Partial fill upon patient request if the [...] By Mouth, Daily, # 90 tablet, Refills 0, Tot. Refills 0, Maintenance, 11/27/20 10:09:00 EDT, Route to Pharmacy Electronically, [facility] #[id number], please schedule appt for further refills, 165, cm, 11/19/20 11:32:00 EDT, Hei... Start Date: 11/27/20 Status: Ordered Claritin 10 mg oral tablet 10 mg, 1, tablet, By Mouth, Daily, for 90 days, # 90 tablet, Refills 3, Tot. Refills 3, Acute 07/28/21 15:22:00 EST, 08/02/20 15:22:00 EST, Route to Pharmacy Electronically, [facility] #[id number], 165, cm, 07/31/20 14:32:00 EST, Height, 127, kg,... Start Date: 08/02/20 Stop Date: 07/28/21 Status: Ordered COVID 19 vaccine COVID 19 [...] PMR, history of smoking fax to : [phone], 04... Start Date: 10/26/20 Status: Ordered Disposable [...] Gm, 3 Refills, Maintenance, 06/22/20 14:58:00 EST, [facility] #[id number], 165, cm, 06/07/20 13:52:00 EST, Height, 127, [...] mL, 5 Refills, Maintenance, 10/01/18 10:08:42 EST, [place], 2 sprays Nares, Both 2 times a [...] 08/02/20 16:13:00 EST, Route to Pharmacy Electronically, [facility] #[id number], D/C RX ON FILE FOR CLARITAN, 165, cm, 07/31/20 14:32:00 EST, Height, 127, [...] tablet, 1 Refills, Maintenance, 07/12/20 13:56:00 EST, [facility] #[id number], Partial fill upon patient request if the prescription is for a schedule II opioid drug., 165, cm, 07/11/20 15:24:00 EST,... Start Date: 07/12/20 Stop Date: 07/05/21 Status: Ordered metoprolol 25 mg oral tablet 25 mg, 1, tablet, By Mouth, 2 times a day, # 60 tablet, Refills 5, Tot. Refills 5, Maintenance, 09/22/20 13:59:00 EST, Route to Pharmacy Electronically, [facility] #[id number], 165, cm, 07/31/2113:32:00 EST, Height, 127, kg, 02/03/20 14:39:00 ED... Start Date: 09/22/20 Status: Ordered Mitigare 0.6 mg oral capsule 1 capsule = 0.6 mg, By Mouth, Daily, # 30 capsule, 11 Refills, Maintenance, 10/31/20 14:29:00 EDT, [facility] #[id number], D/C RX ON FILE FOR COLCHICINE NOT COVERED BY INSURANCE, 165, cm, 10/19/20 8:59:00 EDT, Height, 127, kg, 02/03/20 14:39:00 E... Start Date: 10/31/20 Status: Ordered NARCAN NASAL SPRAY WITH SUPPLIES [...] 0 Refills, Maintenance, 06/18/20 16:57:00 EST, Patch, [facility] #[id number], Partial fill upon patient request, 165, cm, 06/07/20 13:52:00 EST, Height, 127, kg, 02/03/20 14:39:00 EDT, Dry Weight Start Date: 06/18/20 Stop Date: 07/30/20 Status: Ordered NuLYTELY with Flavor Packs oral powder for reconstitution See Instructions, Drink 240mL every 15-20 minutes until first half is gone. Repeat 6 hours prior toprocedure., # 4,000 mL, 0 Refills, Maintenance, 06/28/20 17:09:00 EST, [facility] #[id number],Partial fill upon patient request if the prescript... Start Date: 06/28/20 Status: Ordered oxyCODONE 10 mg oral tablet 1 tablet = 10 mg, By Mouth, Every 8 hours, DX Z79.891 G89.29 M47.816 OK TO FILL LESS THAN PRESCRIBED AMOUNT, # 84 tablet, 0 Refills, Maintenance, 12/03/20 12:33:00 EDT, Tablet, [facility] #[id number], 12/04/20, 165, cm, 11/19/20 11:32:00 EDT, He... Start Date: 12/03/20 Stop Date: 12/31/20 Status: Ordered penicillin V potassium 250 mg oral tablet 1 tablet = 250 mg, By Mouth, 2 times a day, Cellulitis prophylaxis, # 60 tablet, 11 Refills, Maintenance, 10/30/20 12:09:00 EDT, [facility] #[id number], 165, cm, 10/19/20 8:59:00 EDT, Height, 127, kg, 02/03/20 14:39:00 EDT, Dry Weight Start Date: 10/30/20 Status: Ordered predniSONE 10 mg oral tablet 1 tablet = 10 mg, By Mouth, Daily, # 30 tablet, 5 Refills, Maintenance, 11/19/20 11:50:00 EDT, Tablet, [facility] #[id number], Partial fill upon patient request if the prescription is for a schedule II opioid drug., 165, cm, 11/19/20 11:32:00 EDT... Start Date: 11/19/20 Status: Ordered PULL UPS PULL UPS, See Instructions, # 240 each, Refills 11, Tot. Refills 11, Maintenance, 8 A DAY X 30 DAYSLENGTH OF NEED: LIFETIME DX: INCONTINENCE SIZE EXTRA LARGE, 11/18/19 9:31:00 EDT, Compound, 162, cm, 09/21/19 12:01:00 EST, Height, 116.4, kg, ... Start Date: 11/18/19 Status: Ordered risperiDONE 1 mg oral tablet take 1 tablet by mouth twice a day Start Date: 05/23/19 Status: Ordered rOPINIRole 0.5 mg oral tablet 1 tablet = 0.5 mg, By Mouth, 3 times a day, # 90 tablet, 5 Refills, Maintenance, 04/30/20 15:13:00 EDT, Tablet, [facility] #[id number], 165, cm, 04/30/20 14:30:00 EDT, Height, 127, kg, 02/03/20 14:39:00 EDT, Dry Weight Start Date: 04/30/20 Status: Ordered rosuvastatin 10 mg oral tablet 1 tablet = 10 mg, By Mouth, Daily, # 90 tablet, 3 Refills, Maintenance, 05/03/20 16:35:00 EDT, Tablet, [facility] #[id number], d/c rx for capsules, 165, cm, 04/30/20 14:30:00 EDT, Height, 127, kg, 02/03/20 14:39:00 EDT, Dry Weight Start Date: 05/03/20 Status: Ordered Ventolin HFA 108 mcg/inh inhalation aerosol with adapter 2 puffs, Inhalation, Every 4 hours, PRN Wheezing/Shortness of Breath, # 1 each, 5 Refills, Soft Stop, 11/08/20 8:46:00 EDT, [facility] #[id number], 165, cm, 10/19/20 8:59:00 EDT, Height, 127, kg, 02/03/20 14:39:00 EDT, Dry Weight Start Date: 11/08/20 Status: Ordered warfarin 5 mg oral tablet 1 tablet = 5 mg, By Mouth, Daily, dosing subject to change pending inr lab values, # 30 tablet, 11 Refills, Maintenance, 08/31/20 15:36:00 EST, Tablet, [facility] #[id number], 165, cm, 07/31/20 14:32:00 EST, Height, 127, [...] long-term use(Confirmed) Active Gastric banding status(Confirmed) Active residential current use of 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
--- OUTSIDE RECORDS SUMMARY | 2024-01-02 21:12 | XMS_ITS | Continuity of Care Document ---
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 Name Role Phone Fuentes Garcia MD Primary Care Physician [facility] Date[facility]s): 05[facility]18/19 - 08/28/19 [facility] [address] [place] [address] [facility] Attending Physician: Claribel Peraza MD Admitting Physician: Claribel Peraza MD Referring Physician: Fuentes Garcia MD Allergies, Adverse Reactions, [...] H1N1, inactive(oldterm) 7 05/08/11 Given 1Result Comment: [id number] 2Result Comment: [07/08/2017] 20253-176-74 3Admin Note: [facility] 4Admin Note: [facility] [...] EDT, Compound Start Date: 12/26/17 Status: Ordered calcium (as carbonate)-vitamin D 500 mg-400 intl units oral tablet 1 tablet, By Mouth, 2 times a day, # 300 tablet, 11 Refills, Maintenance, 04/19/18 11:18:27 EDT, Tablet, 1 tablet By Mouth 2 times a day Start Date: 04/19/18 Status: Ordered Cane Cane, See Instructions, # 1 each, Refills 0, Tot. Refills 0, Maintenance, USE DAILY DJD M47.816 BILATERAL KNEE ARTHRITIS M12.9, 09/07/17 10:26:10, Compound Start Date: 09/07/17 Status: Ordered carisoprodol 350 mg oral tablet 1 tablet, By Mouth, 2 times a day, # 60 tablet, 2 Refills, Maintenance, 07/18/19 9:13:00 EST, [facility] - [address] [place] [address], 162, cm, 05/23/19 11:50:00 EDT, Height, 116.4, kg, 05/04/19 11:52:00 EDT, Dry Weight Start Date: 07/18/19 Stop Date: 07/19/19 Status: Ordered chlorthalidone 25 mg oral tablet 25 mg, 1, tablet, By Mouth, Daily, # 30 tablet, Refills 2, Tot. Refills 2, Maintenance, 06/17/19 14:30:22 EST, Route to Pharmacy Electronically, [facility]- [id number], [facility] [address] [facility], please schedule appt for further refills Start Date: 06/17/19 Status: Ordered Claritin 10 mg oral tablet 10 mg, 1, tablet, By Mouth, Daily, for 30 days, # 30 tablet, Refills 11, Tot. Refills 11, Acute 05/11/20 17:36:41 EDT, 05/17/19 17:36:41 EDT, Route to Pharmacy Electronically, [facility][id number], [facility] Flynn [address] [place] [address] Start Date: 05/17/19 Stop Date: 05/11/20 Status: Ordered Disposable Absorbant Pads 23 x 36 in Disposable Absorbant Pads 23 x 36 in, See Instructions, # 90 each, Refills 11, Tot. Refills 11, Maintenance, Use three times a day DX: overactive bladder, stress urinary incontinence, 12/07/18 13:46:54 EDT, Compound Start Date: 12/07/18 Status: Ordered duloxetine 60 mg oral enteric coated capsule 1 capsule = 60 mg, By Mouth, Daily in AM, 0 Refills, Maintenance, 07/30/18 11:21:14 EST Start Date: 07/30/18 Status: Ordered Estrace Vaginal Cream 0.1 mg/g 1/2 GM, Vaginally, Every Thursday and , # 42.5 Gm, 1 Refills, Maintenance, 10/15/18 10:50:34 EDT Start Date: 10/15/18 Status: Ordered Hospital Bed See Instructions, # [...] mL, 5 Refills, Maintenance, 10/01/18 10:08:42 EST, [place], 2 sprays Nares, Both 2 times a [...] tablet, Refills 5, Tot. Refills 5, Maintenance, 12/08/18 12:09:04 EDT, Route to Pharmacy Electronically, [facility]-[id number], [facility] [address] [facility] Start Date: 12/08/18 Status: Ordered MiraLax oral powder for reconstitution = 17 Gm, By Mouth, Daily, PRN Constipation, dissolve in water before taking, # 527 Gm, 1 Refills, Maintenance, 07/08/17 11:48:33, REC Powder, 17 Gm By Mouth Daily,PRN:Constipation,Instr:dissolve in water before taking Start Date: 07/08/17 Status: Ordered NARCAN NASAL SPRAY WITH SUPPLIES [...] AMOUNT, # 84 tablet, 0 Refills, Maintenance, 08/12/19 16:20:00 EST, Tablet, [facility] - [address], 08/16/19, 162, cm, 05/23/19 11:50:00 EDT, [place]... Start Date: 08/12/19 Status: Ordered OYSTER SHELL SHARIF-VIT D 500-400 See Instructions, # 300 tablet, take 1 tablet by mouth twice a day, [facility] Start Date: 05/17/19 Status: Ordered penicillin V potassium 250 mg oral tablet 1 tablet = 250 mg, By Mouth, 2 times a day, Cellulitis prophylaxis, # 60 tablet, 11 Refills, Maintenance, 05/18/19 14:33:58 EDT, D/C previous rx sent 05/17/19 Start Date: 05/18/19 Status: Ordered PULL UPS XL PULL UPS XL, See Instructions, # 240 each, Refills 11, Tot. Refills 11, Maintenance, 8 A DAY X 30 DAYS LENGTH OF NEED: LIFETIME DX: INCONTINENCE, 10/27/17 17:54:54 EDT, Compound Start Date: 10/27/17 Status: Ordered risperiDONE 1 mg oral tablet take 1 tablet by mouth twice a day Start Date: 05/23/19 Status: Ordered Ventolin HFA 108 mcg/inh inhalation aerosol with adapter See Instructions, # 54 Gm, Refills 5 Tot. Refills 5, INHALE 2 PUFFS BY MOUTH EVERY 4 HOURS IF NEEDED FOR WHEEZING - REPLACES [facility], [facility] [address] Start Date: 01/24/19 Status: Ordered Vitamin C 500 mg oral tablet, chewable 1 tablet = 500 mg, Chew, 2 times a day, # 60 tablet, 5 Refills, Maintenance, 05/04/19 11:47:54 EDT,Chew Tablet Start Date: 05/04/19 Status: Ordered Vitamin D3 1000 intl units oral tablet 1 tablet = 1,000 International_Units, By Mouth, Daily, # 30 tablet, 6 Refills, Maintenance, 11/06/16 8:32:52, Tablet Start Date: 11/06/16 Status: Ordered Vitamin D3 2000 intl units oral capsule See Instructions, take 1 capsule by mouth once daily, # 30 capsule, 2 Refills, Maintenance, 06/17/19 13:35:32 EST Start Date: 06/17/19 Status: Ordered warfarin 5 mg oral tablet 1 tablet = 5 mg, By Mouth, Daily, dosing subject to change pending inr lab values, # 30 tablet, 5 Refills, Maintenance, 07/25/19 8:37:00 EST, Tablet, [facility] - [address], 162, cm, 05/23/19 11:50:00 EDT, Height, 116.4, kg, 05/04/19 11:52:00 EDT, D... 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
--- OUTSIDE RECORDS SUMMARY | 2024-01-02 21:12 | XMS_ITS | Continuity of Care Document ---
Author Organization [facility] Robin Jane Nolberto Address [address] [place] [address]- Care Team Providers Care Memory Care Program Resident Name Role Phone Fuentes Garcia MD Primary Care Physician [facility]s): 10[facility]17/20 - 11/16/20 [facility] Robin Bolañosley Adult [address] [place] [address]- Allergies, Adverse Reactions, Alerts Substance Reaction Severity [...] H1N1, inactive(oldterm) 8 05/08/11 Given 1Result Comment: [id number] 2Result Comment: [id number] 3Result Comment: [07/08/2017] [id number] 4Admin Note: [facility] 5Admin Note: [facility] [...] 11 Refills, Maintenance, 10/31/20 14:14:00 EDT, Cream, [facility] #[id number], Partial fill upon patient request if the [...] 06/04/20 12:56:00 EST, Route to Pharmacy Electronically, [facility] #[id number], please schedule appt for further refills, 165, cm, 05/16/20 14:15:00 EDT, Hei... Start Date: 06/04/20 Status: Ordered Claritin 10 mg oral tablet 10 mg, 1, tablet, By Mouth, Daily, for 90 days, # 90 tablet, Refills 3, Tot. Refills 3, Acute 07/28/21 15:22:00 EST, 08/02/20 15:22:00 EST, Route to Pharmacy Electronically, [facility] #[id number], 165, cm, 07/31/20 14:32:00 EST, Height, 127, [...] PMR, history of smoking fax to : [phone], 04... Start Date: 10/26/20 Status: Ordered Disposable [...] Gm, 3 Refills, Maintenance, 06/22/20 14:58:00 EST, [facility] #[id number], 165, cm, 06/07/20 13:52:00 EST, Height, 127, [...] mL, 5 Refills, Maintenance, 10/01/18 10:08:42 EST, [place], 2 sprays Nares, Both 2 times a [...] 08/02/20 16:13:00 EST, Route to Pharmacy Electronically, [facility] #[id number], D/C RX ON FILE FOR CLARITAN, 165, [...] tablet, 1 Refills, Maintenance, 07/12/20 13:56:00 EST, [facility] #[id number], Partial fill upon patient request if the prescription is for a schedule II opioid drug., 165, cm, 07/11/20 15:24:00 EST,... Start Date: 07/12/20 Stop Date: 07/05/21 Status: Ordered metoprolol 25 mg oral tablet 25 mg, 1, tablet, By Mouth, 2 times a day, # 60 tablet, Refills 5, Tot. Refills 5, Maintenance, 09/22/20 13:59:00 EST, Route to Pharmacy Electronically, [facility] #[id number], 165, cm, 07/31/2113:32:00 EST, Height, 127, kg, 02/03/20 14:39:00 ED... Start Date: 09/22/20 Status: Ordered Mitigare 0.6 mg oral capsule 1 capsule = 0.6 mg, By Mouth, Daily, # 30 capsule, 11 Refills, Maintenance, 10/31/20 14:29:00 EDT, [facility] #[id number], D/C RX ON FILE FOR COLCHICINE NOT [...] 0 Refills, Maintenance, 06/18/20 16:57:00 EST, Patch, [email or web address] #[id number], Partial fill upon patient request, 165, cm, 06/07/20 13:52:00 EST, Height, 127, kg, 02/03/20 14:39:00 EDT, Dry Weight Start Date: 06/18/20 Stop Date: 07/30/20 Status: Ordered NuLYTELY with Flavor Packs oral powder for reconstitution See Instructions, Drink 240mL every 15-20 minutes until first half is gone. Repeat 6 hours prior toprocedure., # 4,000 mL, 0 Refills, Maintenance, 06/28/20 17:09:00 EST, [email or web address] #[id number],Partial fill upon patient request if the prescript... Start Date: 06/28/20 Status: Ordered oxyCODONE 10 mg oral tablet 1 tablet = 10 mg, By Mouth, Every 8 hours, DX Z79.891 G89.29 M47.816 OK TO FILL LESS THAN PRESCRIBED AMOUNT, # 84 tablet, 0 Refills, Maintenance, 11/05/20 17:14:00 EDT, Tablet, [email or web address] #[id number], 11/06/20, 165, cm, 10/19/20 8:59:00 EDT, Hei... Start Date: 11/05/20 Stop Date: 12/03/20 Status: Ordered penicillin V potassium 250 mg oral tablet 1 tablet = 250 mg, By Mouth, 2 times a day, Cellulitis prophylaxis, # 60 tablet, 11 Refills, Maintenance, 10/30/20 12:09:00 EDT, [facility] #[id number], 165, cm, 10/19/20 8:59:00 EDT, Height, 127, kg, 02/03/20 14:39:00 EDT, Dry Weight Start Date: 10/30/20 Status: Ordered predniSONE 10 mg oral tablet 1 tablet = 10 mg, By Mouth, Daily, # 30 tablet, 1 Refills, Maintenance, 11/16/20 14:09:00 EDT, Tablet, [facility] #[id number], Partial fill upon patient request if the prescription is for a schedule II opioid drug., 165, cm, 10/19/20 8:59:00 EDT,... Start Date: 11/16/20 Status: Ordered PULL UPS PULL UPS, See [...] 5 Refills, Maintenance, 04/30/20 15:13:00 EDT, Tablet, [facility] #[id number], 165, cm, 04/30/20 14:30:00 EDT, Height, 127, kg, 02/03/20 14:39:00 EDT, Dry Weight Start Date: 04/30/20 Status: Ordered rosuvastatin 10 mg oral tablet 1 tablet = 10 mg, By Mouth, Daily, # 90 tablet, 3 Refills, Maintenance, 05/03/20 16:35:00 EDT, Tablet, [facility] #[id number], d/c rx for capsules, 165, cm, 04/30/20 14:30:00 EDT, Height, 127, kg, 02/03/20 14:39:00 EDT, Dry Weight Start Date: 05/03/20 Status: Ordered Ventolin HFA 108 mcg/inh inhalation aerosol with adapter 2 puffs, Inhalation, Every 4 hours, PRN Wheezing/Shortness of Breath, # 1 each, 5 Refills, Soft Stop, 11/08/20 8:46:00 EDT, [facility] #[id number], 165, cm, 10/19/20 8:59:00 EDT, Height, 127, kg, 02/03/20 14:39:00 EDT, Dry Weight Start Date: 11/08/20 Status: Ordered warfarin 5 mg oral tablet 1 tablet = 5 mg, By Mouth, Daily, dosing subject to change pending inr lab values, # 30 tablet, 11 Refills, Maintenance, 08/31/20 15:36:00 EST, Tablet, [facility] #[id number], 165, cm, 07/31/20 14:32:00 EST, Height, 127, [...] long-term use(Confirmed) Active 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
--- OUTSIDE RECORDS SUMMARY | 2024-01-02 21:12 | XMS_ITS | Continuity of Care Document ---
Author Organization [facility] Robin Jane Nolberto lt Address [address] [place] [address]- Care Team Providers Care Hand Clipper Name Role Phone Radha GRIDER, Fuentes Kenny Primary Care Physician [facility]): 06[facility]20 - 07/27/20 [facility] Adult [address] [place] [address]- Allergies, Adverse Reactions, Alerts Substance Reaction Severity [...] H1N1, inactive(oldterm) 8 05/08/11 Given 1Result Comment: [id number] 2Result Comment: [id number] 3Result Comment: [07/08/2017] [id number] 4Admin Note: [facility] 5Admin Note: [facility] [...] Refills 0, Maintenance, DX: MORBID OBESITY, 07/26/20 13:57:00 EST, Supply Start Date: 07/26/20 Status: Ordered BiPAP Equipment AutoBiPAP max IPAP 15, min EPAP 6, PS 5 and 1 liter of 02 while sleeping, Maintenance, 12/26/17 13:44:20 EDT, Compound Start Date: 12/26/17 Status: Ordered calcipotriene 0.005% topical cream 1 application, Topically, 2 times a day, # 60 Gm, 5 Refills, Maintenance, 07/03/20 9:16:00 EST, Cream, [facility] #[id number], Partial fill upon patient request if the [...] 06/04/20 12:56:00 EST, Route to Pharmacy Electronically, [facility] #[id number], please schedule appt for further refills, 165, cm, 05/16/20 14:15:00 EDT, Hei... Start Date: 06/04/20 Status: Ordered colchicine 0.6 mg oral tablet See Instructions, take 1 tablet by mouth once daily if needed for PSEUDOGOUT pain, # 30 tablet, Refills 5, Tot. Refills 5, Soft Stop, 01/05/20 8:41:00 EDT, Instructions Replace Required Details, Route to Pharmacy Electronically, [facility] #... Start Date: 01/05/20 Status: Ordered [...] Gm, 3 Refills, Maintenance, 06/22/20 14:58:00 EST, [facility] #[id number], 165, cm, 06/07/20 13:52:00 EST, Height, 127, [...] mL, 5 Refills, Maintenance, 10/01/18 10:08:42 EST, [place], 2 sprays Nares, Both 2 times a [...] tablet, 1 Refills, Maintenance, 07/12/20 13:56:00 EST, [facility] #[id number], Partial fill upon patient request if the prescription is for a schedule II opioid drug., 165, cm, 07/11/20 15:24:00 EST,... Start Date: 07/12/20 Stop Date: 07/05/21 Status: Ordered metoprolol 25 mg oral tablet 25 mg, 1, tablet, By Mouth, 2 times a day, # 60 tablet, Refills 5, Tot. Refills 5, Maintenance, 03/22/20 16:34:00 EDT, Route to Pharmacy Electronically, [facility] #[id number], 165, cm, 02/02/2014:39:00 EDT, Height, 127, kg, [...] 0 Refills, Maintenance, 06/18/20 16:57:00 EST, Patch, [facility] #[id number], Partial fill upon patient request, 165, cm, 06/07/20 13:52:00 EST, Height, 127, kg, 02/03/20 14:39:00 EDT, Dry Weight Start Date: 06/18/20 Stop Date: 07/30/20 Status: Ordered NuLYTELY with Flavor Packs oral powder for reconstitution See Instructions, Drink 240mL every 15-20 minutes until first half is gone. Repeat 6 hours prior toprocedure., # 4,000 mL, 0 Refills, Maintenance, 06/28/20 17:09:00 EST, [facility] #[id number],Partial fill upon patient request if the prescript... Start Date: 06/28/20 Status: Ordered oxyCODONE 10 mg oral tablet 1 tablet = 10 mg, By Mouth, Every 8 hours, DX Z79.891 G89.29 M47.816 OK TO FILL LESS THAN PRESCRIBED AMOUNT, # 84 tablet, 0 Refills, Maintenance, 07/16/20 17:18:00 EST, Tablet, [facility] #[id number], 07/17/20, 165, cm, 07/11/20 15:24:00 EST, He... Start Date: 07/16/20 Stop Date: 08/13/20 Status: Ordered penicillin V potassium 250 mg [...] 5 Refills, Maintenance, 04/30/20 15:13:00 EDT, Tablet, [facility] #[id number], 165, cm, 04/30/20 14:30:00 EDT, Height, 127, kg, 02/03/20 14:39:00 EDT, Dry Weight Start Date: 04/30/20 Status: Ordered rosuvastatin 10 mg oral tablet 1 tablet = 10 mg, By Mouth, Daily, # 90 tablet, 3 Refills, Maintenance, 05/03/20 16:35:00 EDT, Tablet, [facility] #[id number], d/c rx for capsules, 165, cm, 04/30/20 14:30:00 EDT, Height, 127, kg, 02/03/20 14:39:00 EDT, Dry Weight Start Date: 05/03/20 Status: Ordered Ventolin HFA 108 mcg/inh inhalation aerosol with adapter 2 puffs, Inhalation, Every 4 hours, PRN Wheezing/Shortness of Breath, # 1 each, 11 Refills, Soft Stop, 01/19/20 11:46:00 EDT, [facility] #[id number], 165, cm, 01/16/20 6:17:00 EDT, Height, 128.1, kg, 01/16/20 6:17:00 EDT, Dry Weight Start Date: 01/19/20 Status: Ordered warfarin 5 mg oral tablet 1 tablet = 5 mg, By Mouth, Daily, dosing subject to change pending inr lab values, # 30 tablet, 5 Refills, Maintenance, 02/15/20 13:21:00 EDT, Tablet, [facility] #[id number], 165, cm, 02/03/20 14:39:00 EDT, Height, 127, [...] long-term use(Confirmed) Active 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
--- OUTSIDE RECORDS SUMMARY | 2024-01-02 21:12 | XMS_ITS | Continuity of Care Document ---
Author Organization [facility] Robin Jane Nolberto Address [address] [place] [address]- Care Team Providers Care Principal Clerk Typist Name Role Phone Kyle Ahumada DO Primary Care Physician [facility] Date[facility]s): 04/03/23 - 05/03/23 [facility] Robin Jane Adult [address] [place] [address]- Allergies, Adverse Reactions, Alerts Substance Reaction Severity [...] vaccine, inactivated 05/10/07 Jarrett rded SARS-CoV-2 mRNA ([id number]) vax 08/30/21 Recorded SARS-CoV-2 (COVID-19) mRNA BNT-162b2 vac 01/02/21 Recorded SARS-CoV-2 (COVID-19) mRNA BNT-162b2 vac 12/02/20 Recorded Fluvirin (oldterm) 8 03/22/15 Given Fluzone Preservative-Free (oldterm) 9 03/12/12 Giv en pneumococcal 23-valent vaccine 10/08/11 Given tetanus/diphtheria/pertussis, acel(Tdap) 09/08/11 Given tetanus/diphtheria/pertussis, acel(Tdap) 12/17/06 Recorded influ virus vac, H1N1, inactive(oldterm) 10 05/08/11 Given hepatitis B adult vaccine 06/14/02 Recorded 1Result Comment: [id number] 2Result Comment: [id number] 3Result Comment: [id number] 4Result Comment: [id number] 5Result Comment: [07/08/2017] 38150-537-03 6Admin Note: [facility] 7Admin Note: [facility] 04-08 8Admin Note: Given at [facility] 9Admin Note: 03-11-12 GIVEN AT [facility] 10Admin Note: rcvd elsewhere Medications acetaminophen 325 mg oral tablet 2, tablet, By Mouth, Every 6 hours, PRN, # 100 tablet, Refills 5, Maintenance, NEEDED FOR MODERATE PAIN (VIAL), 04/23/23 12:55:00 EDT, Route to Pharmacy Electronically, [facility], 160, cm, 04/02/23 12:45:00 EDT, Height, 98.8, kg, 07/17/22... Start Date: 04/23/23 Status: Ordered Albuterol (Eqv-ProAir HFA) 90 mcg/inh inhalation aerosol See Instructions, INHALE 2 PUFFS BY MOUTH EVERY FOUR HOURS NEEDED FOR WHEEZING OR SHORTNESS OF BREATH, # 8.5 Gm, 5 Refills, Maintenance, 03/13/23 9:55:00 [facility], INHALE 2 PUFFS BY MOUTH EVERY FOUR HOURS NEEDED FOR WHEEZING O... Start Date: 03/13/23 Status: Ordered amiodarone 200 mg oral tablet Refills 0, Maintenance, 03/02/23 9:55:00 EDT, Partial fill upon patient request if the prescriptionis for a schedule II opioid drug. Start Date: 03/02/23 Status: Ordered cloNIDine 0.1 mg oral tablet 1, tablet, By Mouth, 2 times a day, PRN, # 56 tablet, Refills 2, Tot. Refills 2, Maintenance, NEEDED FOR FOR ANXIETY (VIAL), 03/12/23 15:30:00 EDT, Route to Pharmacy Electronically, [facility], 160, cm, 03/02/23 9:56:00 EDT, Height, 98.8, k... Start Date: 03/12/23 Status: Ordered cloNIDine 0.1 mg oral tablet 0.1 mg, 1, tablet, By Mouth, 2 times a day, PRN, # 60 tablet, Refills 2, Tot. Refills 2, Maintenance, Anxiety, 03/12/23 16:38:00 EDT, [facility], Partial fill upon patient request if the prescription is for a... Start Date: 03/12/23 Status: Ordered cyclobenzaprine 5 mg oral tablet 1 tablet = 5 mg, By Mouth, 3 times a day, PRN Spasm, can increase to 2 three time a day if needed, # 90 tablet, 2 Refills, Maintenance, 04/02/23 12:59:00 EDT, Tablet, [facility], Partial fillupon patient request if the prescription is for a s... Start Date: 04/02/23 Status: Ordered DilTIAZem (Eqv-Dilacor XR) 240 mg/24 hours oral capsule, extended release 1 capsule = 240 mg, By Mouth, Daily, # 90 capsule, 3 Refills, Maintenance, 03/13/23 17:04:00 EDT, CD Capsule, [facility], Partial fill upon patient request [...] 03/13/23 16:56:00 EDT, Route to Pharmacy Electronically, [facility], Partial fill upon patient request if the prescriptio... Start Date: 03/13/23 Stop Date: 04/12/23 Status: Ordered duloxetine 20 mg oral enteric coated capsule 2 capsule = 40 mg, By Mouth, Daily at bedtime, # 60 capsule, 11 Refills, Maintenance, 06/25/21 12:00:00 EST, [facility]ule[facility], Partial fill upon patient request [...] 03/02/23 18:12:00 EDT, Route to Pharmacy Electronically, [facility], Partial fill upon patient request if the prescription is for a schedule II opioid drug... Start Date: 03/02/23 Status: Ordered ipratropium nasal 21 mcg/inh spray 2 sprays = 42 mcg, Nares, Both, 2 times a day, # 30 mL, 5 Refills, Maintenance, 03/13/23 16:58:00 EDT, [place], [facility], Partial fill upon patient request if [...] 02/07/23 18:12:00 EDT, Route to Pharmacy Electronically, [facility], 160, cm, 12/16/22 10:46:00 EDT, Height, [...] Daily, # 30 patch, 3 Refills, Maintenance, 03/13/23 17:03:00 EDT, Patch, [facility], Partial fill upon patient request if the prescription is for a schedule II opioid drug., 1 patch Topically Daily, 160, cm, 03/02/23 9:56:0... Start Date: 03/13/23 Status: Ordered penicillin V potassium 250 mg oral tablet 1 tablet, By Mouth, 2 times a day, ^1R1,1R4., # 60 tablet, 5 Refills, Maintenance, 04/10/23 16:03:00 EDT, [facility], 160, cm, 04/02/23 12:45:00 EDT, Height, 98.8, kg, 07/17/22 8:58:00 EST, Dry Weight Start Date: 04/10/23 Status: Ordered rOPINIRole 0.5 mg oral tablet 1 tablet, By Mouth, 3 times a day, ^1R1,1R3,1R4., # 90 tablet, 5 Refills, Maintenance, 12/24/22 14:21:00 EDT, [facility], 160, cm, 12/16/22 10:46:00 EDT, Height, 98.8, kg, 07/17/22 8:58:00 EST, Dry Weight Start Date: 12/24/22 Status: Ordered rosuvastatin 10 mg oral tablet 1 tablet, By Mouth, Daily, ^1R1., # 30 tablet, 5 Refills, Maintenance, 02/07/23 18:12:00 EDT[facility], 160, cm, 12/16/22 10:46:00 EDT, Height, 98.8, kg, 07/17/22 8:58:00 EST, Dry Weight Start Date: 02/07/23 Status: Ordered Symbicort 80mcg/4.5mcg Inhaler See Instructions, INHALE 2 PUFFS BY MOUTH TWICE A DAY RINSE MOUTH AND THROAT AFTER USE, # 10.2 Gm, Refills 5, Tot. Refills 5, Maintenance, 03/13/23 10:13:00 EDT, Instructions Replace Required Details, Route to Pharmacy Electronically, [id number]... Start Date: 03/13/23 Status: Ordered Xarelto 20 mg oral tablet 1 tablet = 20 mg, By Mouth, Daily at supper, # 90 tablet, 1 Refills, Maintenance, 03/02/23 18:12:00EDT, Tablet, [facility], pt was rx'd w diltiazem on [...] Confirmed Active Gastric banding status Confirmed Active [facility] current use of opiate analgesic Confirmed Active [...] Team Personnel Name: Sandra Wills NP Position: [facility]O Associate Professional Member Role: Primary Care Nurse Address: Address: [address] [facility] [place] [address]- [place] Name: Marley Alejo RN Position: S RN Member Role: Primary Care Nurse Name: Alma Delia Fonseca PharmD Position: [facility] Associate Professional Member Role: Lifetime Consulting Provider Address: Address: [address] [facility] [place] [address]- [place] Name: Yolis Mattson RN Position: [facility] RN Member Role: Primary Care Nurse Name: Priscila Garzon RN Position: [facility] RN Member Role: Primary Care Nurse Name: Kyle Ahumada DO Position: [facility] Physician - Primary Care Member Role: PCP Address: Address: [address] [place] [address]- [place] Name: Renea Mart RN Position: [facility] RN Member Role: Primary Care Nurse Care Team Related Persons Name: FAUZIA JANSEN Address: home [address] [place] [address] Name: AURELIA SHETH Address: home [address] [place] [address] Name: BRE OSORIO Address: home [address] [place] [address]
--- OUTSIDE RECORDS SUMMARY | 2024-01-02 21:12 | XMS_ITS | Continuity of Care Document ---
Author Organization [facility] Robin Jane Nolberto Address [address] [place] [address]- Care Team Providers Care Scientific Research Manager Name Role Phone Kyle Ahumada DO Primary Care Physician Encounter [facility] Date(s): 02/13/23 - 03/20/23 [facility] Robin Bolañosley Adult [address] [place] [address]- Encounter Diagnosis Chronic obstructive pulmonary disease (COPD)(Discharge Diagnosis) - 02/18/23 Paroxysmal atrial flutter(Discharge Diagnosis) - 02/18/23 Severe obstructive sleep apnea-hypopnea syndrome(Discharge Diagnosis) - 02/18/23 Type 2 diabetes mellitus with hyperglycemia(Discharge Diagnosis) - 02/18/23 Congestive heart failure(Discharge Diagnosis) - 02/18/23 Chronic back pain(Discharge Diagnosis) - 03/02/23 Arthritis of knee - bilateral(Discharge Diagnosis) - 03/02/23 Chronic pain syndrome(Discharge Diagnosis) - 03/02/23 DJD (degenerative joint disease), lumbar(Discharge Diagnosis) - 03/02/23 Hyperparathyroidism(Discharge Diagnosis) - 03/02/23 PTSD - Post-traumatic stress disorder(Discharge Diagnosis) - 03/02/23 Pseudogout of knees(Discharge Diagnosis) - 03/02/23 Attending Physician: Kyle Ahumada DO Allergies, Adverse [...] vaccine, inactivated 05/10/07 Jarrett rded SARS-CoV-2 mRNA ([id number]) vax 08/30/21 Recorded SARS-CoV-2 (COVID-19) mRNA BNT-162b2 vac 01/02/21 Recorded SARS-CoV-2 (COVID-19) mRNA BNT-162b2 vac 12/02/20 Recorded Fluvirin (oldterm) 8 03/22/15 Given Fluzone Preservative-Free (oldterm) 9 03/12/12 Giv en pneumococcal 23-valent vaccine 10/08/11 Given tetanus/diphtheria/pertussis, acel(Tdap) 09/08/11 Given tetanus/diphtheria/pertussis, acel(Tdap) 12/17/06 Recorded influ virus vac, H1N1, inactive(oldterm) 10 05/08/11 Given hepatitis B adult vaccine 06/14/02 Recorded 1Result Comment: [id number] 2Result Comment: [id number] 3Result Comment: [id number] 4Result Comment: [id number] 5Result Comment: [07/08/2017] 23816-538-55 6Admin Note: [facility] 7Admin Note: [facility] - 8Admin Note: Given at [facility] 9Admin Note: 03-11-12 GIVEN AT [facility] 10Admin Note: rcvd elsewhere Medications acetaminophen 325 mg oral tablet 650 mg, 2, tablet, By Mouth, Every 6 hours, PRN, # 100 tablet, Refills 1, Tot. Refills 1, Maintenance, Pain , Moderate, 03/13/23 16:59:00 EDT, Route to Pharmacy Electronically, [facility], Partial fill upon patient request if the prescription... Start Date: 03/13/23 Status: Ordered Albuterol (Eqv-ProAir HFA) 90 mcg/inh inhalation aerosol See Instructions, INHALE 2 PUFFS BY MOUTH EVERY FOUR HOURS NEEDED FOR WHEEZING OR SHORTNESS OF BREATH, # 8.5 Gm, 5 Refills, Maintenance, 03/13/23 9:55:00 EDT, [facility], 30, INHALE 2 PUFFS BY MOUTH [...] EDT, Route to Pharmacy Electronically, [facility], 160, cm, 03/02/23 9:56:00 EDT, Height, 98.8, k... Start Date: 03/12/23 Status: Ordered cloNIDine 0.1 mg oral tablet 0.1 mg, 1, tablet, By Mouth, 2 times a day, PRN, # 60 tablet, Refills 2, Tot. Refills 2, Maintenance, Anxiety, 03/12/23 16:38:00 EDT, Route to Pharmacy Electronically, [facility], Partial fill upon patient request if the prescription is for a... Start Date: 03/12/23 Status: Ordered cyclobenzaprine 5 mg oral tablet 1 tablet = 5 mg, By Mouth, 3 times a day, # 45 tablet, 1 Refills, Maintenance, 03/03/23 9:27:00 EDT, [facility], Partial fill upon patient request if the prescription is for a schedule II opioid drug., 160, cm, 03/02/23 9:56:00 EDT, He... Start Date: 03/03/23 Status: Ordered DilTIAZem (Eqv-Dilacor XR) 240 mg/24 hours oral capsule, extended release 1 capsule = 240 mg, By Mouth, Daily, # 90 capsule, 3 Refills, Maintenance, 03/13/23 17:04:00 EDT, CD Capsule, [facility], Partial fill upon patient [...] 03/13/23 16:56:00 EDT, Route to Pharmacy Electronically, [facility], Partial fill upon patient request [...] 03/02/23 18:12:00 EDT, Route to Pharmacy Electronically, [facility], Partial fill upon patient request if the prescription is for a schedule II opioid drug... Start Date: 03/02/23 Status: Ordered ipratropium nasal 21 mcg/inh spray 2 sprays = 42 mcg, Nares, Both, 2 times a day, # 30 mL, 5 Refills, Maintenance, 03/13/23 16:58:00 EDT, [place], [facility], Partial fill upon patient request if [...] 02/07/23 18:12:00 EDT, Route to Pharmacy Electronically, [facility], 160, cm, 12/16/22 10:46:00 EDT, Height, [...] Maintenance, 03/13/23 17:03:00 EDT, Patch, [facility], Partial fill upon patient request if the prescription is for a schedule II opioid drug., 1 patch Topically Daily, 160, cm, 03/02/23 9:56:0... Start Date: 03/13/23 Status: Ordered penicillin V potassium 250 mg oral tablet 1 tablet = 250 mg, By Mouth, 2 times a day, CELLULITIS PROPHYLAXIS, # 60 tablet, 5 Refills, Maintenance, 11/06/22 17:25:00 EDT, Tablet, [facility], Partial fill upon patient request if the prescription is for a schedule II opioid drug., 160, c... Start Date: 11/06/22 Stop Date: 05/05/23 Status: Ordered rOPINIRole 0.5 mg oral tablet 1 tablet, By Mouth, 3 times a day, ^1R1,1R3,1R4., # 90 tablet, 5 Refills, Maintenance, 12/24/22 14:21:00 EDT, [facility], 160, cm, 12/16/22 10:46:00 EDT, Height, 98.8, kg, 07/17/22 8:58:00 EST, Dry Weight Start Date: 12/24/22 Status: Ordered rosuvastatin 10 mg oral tablet 1 tablet, By Mouth, Daily, ^1R1., # 30 tablet, 5 Refills, Maintenance, 02/07/23 18:12:00 EDT, [facility], 160, cm, 12/16/22 10:46:00 EDT, Height, 98.8, kg, 07/17/22 8:58:00 EST, Dry Weight Start Date: 02/07/23 Status: Ordered Symbicort 80mcg/4.5mcg Inhaler See Instructions, INHALE 2 PUFFS BY MOUTH TWICE A DAY RINSE MOUTH AND THROAT AFTER USE, # 10.2 Gm, Refills 5, Tot. Refills 5, Maintenance, 03/13/23 10:13:00 EDT, Instructions Replace Required Details, [id number] Start Date: 03/13/23 Status: Ordered Xarelto 20 mg oral tablet 1 tablet = 20 mg, By Mouth, Daily at supper, # 90 tablet, 1 Refills, Maintenance, 03/02/23 18:12:00EDT, Tablet, [facility], pt was rx'd w diltiazem on [...] Confirmed Active Gastric banding status Confirmed Active [facility] current use of opiate analgesic Confirmed Active [...] Effective Dates Health Status Clinical Service Informant Chronic obstructive pulmonary disease (COPD) Discharge Diagnosis 02/18/23 Paroxysmal atrial flutter Discharge Diagnosis 02/18/23 Severe obstructive sleep apnea-hypopnea syndrome Discharge Diagnosis 02/18/23 Type 2 diabetes mellitus with hyperglycemia Discharge Diagnosis 02/18/23 Congestive heart failure Discharge Diagnosis 02/18/23 Chronic back pain Discharge Diagnosis 03/02/23 Arthritis of knee - bilateral Discharge Diagnosis 03/02/23 Chronic pain syndrome Discharge Diagnosis 03/02/23 DJD (degenerative joint disease), lumbar Discharge Diagnosis 03/02/23 Hyperparathyroidism Discharge Diagnosis 03/02/23 PTSD - Post-traumatic stress disorder Discharge Diagnosis 03/02/23 Pseudogout of knees Discharge Diagnosis 03/02/23 Social History Social History Type Response Smoking Status 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 Female Patient Care team information Care Team Personnel Name: Sandra Wills NP Position: [facility] PCO Associate Professional Member Role: Primary Care Nurse Address: Address: [address] [place] [address] [place] [address]- Name: Marley Alejo RN Position: [facility] RN Member Role: Primary Care Nurse Name: Alma Delia Fonseca PharmD Position: [facility] Associate Professional Member Role: Lifetime Consulting Provider Address: Address: [address] [place] [address] [place] [address]- Name: Yolis Mattson RN Position: [facility] RN Member Role: Primary Care Nurse Name: Priscila Garzon RN Position: [facility] RN Member Role: Primary Care Nurse Name: Kyle Ahumada DO Position: [facility] Physician - Primary Care Member Role: PCP Address: Address: [address] [place] [address] [place] [address]- [place] Name: Renea Mart RN Position: S RN Member Role: Primary Care Nurse Care Team Related Persons Name: AYDENYOHANNES FAUZIA Address: home [address] [place] [address] Name: AURELIA SHETH Address: [address] [place] [address] Name: BRE OSORIO Address: home [address] [place] [address]
--- OUTSIDE RECORDS SUMMARY | 2024-01-02 21:12 | XMS_ITS | Continuity of Care Document ---
Author Organization [facility] Address [address] [place] [address]- Care Team Providers Care Rn Neurology Name Role Phone Fuentes Garcia MD Primary Care Physician [phone] [facility] Date[facility]s): 07/29/19 - 08/08/19 [facility] [address] [place] [address]- [facility] Attending Physician: Desire Velasquez Admitting Physician: Desire Velasquez Referring Physician: AdmtrDesire Allergies, Adverse Reactions, Alerts Substance Reaction Severity [...] H1N1, inactive(oldterm) 7 05/08/11 Given 1Result Comment: [id number] 2Result Comment: [07/08/2017] 12344-370-30 3Admin Note: [facility] 4Admin Note: [facility] [...] Maintenance, 07/18/19 9:13:00 EST, [facility] [address] [place] [address], 162, cm, 05/23/19 11:50:00 EDT, Height, 116.4, kg, 05/04/19 11:52:00 EDT, Dry Weight Start Date: 07/18/19 Stop Date: 07/19/19 Status: Ordered chlorthalidone 25 mg oral tablet 25 mg, 1, tablet, By Mouth, Daily, # 30 tablet, Refills 2, Tot. Refills 2, Maintenance, 06/17/19 14:30:22 EST, Route to Pharmacy Electronically, [facility]_ID- [id number], [facility] [address] [facility], please schedule appt for further refills Start Date: 06/17/19 Status: Ordered Claritin 10 mg oral tablet 10 mg, 1, tablet, By Mouth, Daily, for 30 days, # 30 tablet, Refills 11, Tot. Refills 11, Acute 05/11/20 17:36:41 EDT, 05/17/19 17:36:41 EDT, Route to Pharmacy Electronically, [facility]_[id number], [facility]EENA Flynn [address] [place] [address] Start Date: 05/17/19 Stop Date: 05/11/20 Status: [...] mL, 5 Refills, Maintenance, 10/01/18 10:08:42 EST, [place], 2 sprays Nares, Both 2 times a [...] 12/08/18 12:09:04 EDT, Route to Pharmacy Electronically, [facility]DP_ID-[id number], [facility] [address] [facility] Start Date: 12/08/18 Status: Ordered MiraLax oral [...] AMOUNT, # 84 tablet, 0 Refills, Maintenance, 07/11/19 12:14:00 EST, Tablet, [facility] - [address], 07/19/19, 162, cm, 05/23/19 11:50:46 EDT, [place]... 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
--- OUTSIDE RECORDS SUMMARY | 2024-01-02 21:13 | XMS_ITS | Continuity of Care Document ---
Author Organization [facility] Address [address] [place] [address]- Care Team Providers Care Va Underwriter Name Role Phone Fuentes Garcia MD Primary Care Physician [phone] [facility] Date[facility]s): 06/14/20 - 07/27/20 [facility] [address] [place] [address]- Attending Physician: Martine Menendez MD Admitting Physician: Martine Menendez MD Referring Physician: Fuentes Garcia MD Allergies, [...] H1N1, inactive(oldterm) 8 05/08/11 Given 1Result Comment: [id number] 2Result Comment: [id number] 3Result Comment: [07/08/2017] [id number] 4Admin Note: [facility] 5Admin Note: [facility] - 6Admin Note: Given at [facility] 7Admin Note: 8-16-12 GIVEN AT [facility] 8Admin Note: r[facility]d [...] 5 Refills, Maintenance, 07/03/20 9:16:00 EST, [place], [id number], Partial fill upon patient request if the [...] 06/04/20 12:56:00 EST, Route to Pharmacy Electronically, [id number], please schedule appt for further refills, 165, cm, 05/16/20 14:15:00 EDT, Hei... Start Date: 06/04/20 Status: Ordered colchicine 0.6 mg oral tablet See Instructions, take 1 tablet by mouth once daily if needed for PSEUDOGOUT pain, # 30 tablet, Refills 5, Tot. Refills 5, Soft Stop, 01/05/20 8:41:00 EDT, Instructions Replace Required Details, Route to Pharmacy Electronically, [facility] #... Start Date: 01/05/20 Status: Ordered [...] Gm, 3 Refills, Maintenance, 06/22/20 14:58:00 EST, [id number], 165, cm, 06/07/20 13:52:00 EST, Height, 127, [...] mL, 5 Refills, Maintenance, 10/01/18 10:08:42 EST, [place], 2 sprays Nares, Both 2 times a [...] tablet, 1 Refills, Maintenance, 07/12/20 13:56:00 EST, [id number], Partial fill upon patient request if the prescription is for a schedule II opioid drug., 165, cm, 07/11/20 15:24:00 EST,... Start Date: 07/12/20 Stop Date: 07/05/21 Status: Ordered metoprolol 25 mg oral tablet 25 mg, 1, tablet, By Mouth, 2 times a day, # 60 tablet, Refills 5, Tot. Refills 5, Maintenance, 03/22/20 16:34:00 EDT, Route to Pharmacy Electronically, [facility][id number], 165, cm, 02/02/2014:39:00 EDT, Height, 127, kg, [...] 0 Refills, Maintenance, 06/18/20 16:57:00 EST, Patch, [facility][id number], Partial fill upon patient request, 165, cm, 06/07/20 13:52:00 EST, Height, 127, kg, 02/03/20 14:39:00 EDT, Dry Weight Start Date: 06/18/20 Stop Date: 07/30/20 Status: Ordered NuLYTELY with Flavor Packs oral powder for reconstitution See Instructions, Drink 240mL every 15-20 minutes until first half is gone. Repeat 6 hours prior toprocedure., # 4,000 mL, 0 Refills, Maintenance, 06/28/20 17:09:00 EST, [id number],Partial fill upon patient request if the prescript... Start Date: 06/28/20 Status: Ordered oxyCODONE 10 mg oral tablet 1 tablet = 10 mg, By Mouth, Every 8 hours, DX Z79.891 G89.29 M47.816 OK TO FILL LESS THAN PRESCRIBED AMOUNT, # 84 tablet, 0 Refills, Maintenance, 07/16/20 17:18:00 EST, Tablet, [facility] #[id number], 07/17/20, 165, cm, 07/11/20 15:24:00 EST, He... [...] 5 Refills, Maintenance, 04/30/20 15:13:00 EDT, Tablet, [facility] #15113, 165, cm, 04/30/20 14:30:00 EDT, Height, 127, kg, 02/03/20 14:39:00 EDT, Dry Weight Start Date: 04/30/20 Status: Ordered rosuvastatin 10 mg oral tablet 1 tablet = 10 mg, By Mouth, Daily, # 90 tablet, 3 Refills, Maintenance, 05/03/20 16:35:00 EDT, Tablet, [facility] #[id number], d/c rx for capsules, 165, cm, 04/30/20 14:30:00 EDT, Height, 127, kg, 02/03/20 14:39:00 EDT, Dry Weight Start Date: 05/03/20 Status: Ordered Ventolin HFA 108 mcg/inh inhalation aerosol with adapter 2 puffs, Inhalation, Every 4 hours, PRN Wheezing/Shortness of Breath, # 1 each, 11 Refills, Soft Stop, 01/19/20 11:46:00 EDT, [facility][id number], 165, cm, 01/16/20 6:17:00 EDT, Height, 128.1, kg, 01/16/20 6:17:00 EDT, Dry Weight Start Date: 01/19/20 Status: Ordered warfarin 5 mg oral tablet 1 tablet = 5 mg, By Mouth, Daily, dosing subject to change pending inr lab values, # 30 tablet, 5 Refills, Maintenance, 02/15/20 13:21:00 EDT, Tablet, [facility] #[id number], 165, cm, 02/03/20 14:39:00 EDT, Height, 127, [...] long-term use(Confirmed) Active Gastric banding status(Confirmed) Active senior living current use of 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
--- OUTSIDE RECORDS SUMMARY | 2024-01-02 21:13 | XMS_ITS | Continuity of Care Document ---
Author Organization [facility] Address [address] [place] [address]- Care Team Providers Care Permit Review Assistant Name Role Phone Kyle Ahumada DO Primary Care Physician [phone] [facility]counter [facility] Date[facility]s): 07/03/23 - 08/02/23 [facility] [address] [address] Allergies, Adverse Reactions, Alerts Substance Reaction Severity [...] vaccine, inactivated 05/10/07 Jarrett rded SARS-CoV-2 mRNA ([id number]) vax 08/30/21 Recorded SARS-CoV-2 (COVID-19) mRNA BNT-162b2 vac 01/02/21 Recorded SARS-CoV-2 (COVID-19) mRNA BNT-162b2 vac 12/02/20 Recorded Fluvirin (oldterm) 10 03/22/15 Given Fluzone Preservative-Free (oldterm) 11 03/12/12 Gi octavio pneumococcal 23-valent vaccine 10/08/11 Given tetanus/diphtheria/pertussis, acel(Tdap) 09/08/11 Given tetanus/diphtheria/pertussis, acel(Tdap) 12/17/06 Recorded influ virus vac, H1N1, inactive(oldterm) 12 05/08/11 Given hepatitis B adult vaccine 06/14/02 Recorded 1Result Comment: PCV 20 [facility] [place][id number] 2Result Comment: Flu [facility] [place][id number] 3Result Comment: [id number] 4Result Comment: [id number] 5Result Comment: [id number] 6Result Comment: [id number] 7Result Comment: [07/08/2017] [id number] 8Admin Note: [facility] 9Admin Note: [facility] 9-13 10Admin Note: Given at [facility] 11Admin Note: 03-11-12 GIVEN AT [facility] 12Admin Note: rcvd elsewhere Medications Albuterol (Eqv-ProAir HFA) 90 mcg/inh inhalation aerosol 2 puffs, Inhalation, Every 4 hours, PRN NEEDED FOR WHEEZING OR FOR SHORTNESS OF BREATH (BULK), #8.5 Gm, 5 Refills, Maintenance, 07/25/23 11:45:00 EST, [facility], 17, INHALE 2 PUFFS BY MOUTH EVERY 4 HOURS NEEDED FOR WHEEZING OR FOR SHOR... Start Date: 07/25/23 Status: Ordered cloNIDine 0.1 mg oral tablet 1, tablet, By Mouth, 2 times a day, PRN, ANXIETY (VIAL., # 56 tablet, Refills 2, Maintenance, NEEDED, 07/25/23 11:44:00 EST, Route to Pharmacy Electronically, [facility], 160, cm, 07/07/2315:02:00 EST, Height, 112.4, kg, 06/24/23 17:38:00... Start Date: 07/25/23 Status: Ordered cyclobenzaprine 5 mg oral tablet 1 tablet, By Mouth, 3 times a day, PRN NEEDED, SPASM (VIAL., # 90 tablet, 2 Refills, Maintenance, 06/08/23 9:15:00 EST, [facility], 160, cm, 06/03/23 11:30:00 EST, Height, 98.8, kg, 07/17/22 8:58:00 EST, Dry Weight Start Date: 06/08/23 Status: Ordered docusate sodium 100 mg oral capsule 100 mg, 1, capsule, By Mouth, 2 times a day, hold for loose stool, # 180 capsule, Refills 3, Tot. Refills 3, Maintenance, 03/13/23 16:56:00 EDT, [facility], [facility], Partial fill upon patient request if the prescriptio... Start Date: 03/13/23 Stop Date: 04/12/23 Status: Ordered duloxetine 20 mg oral enteric coated capsule 2 capsule = 40 mg, By Mouth, Daily at bedtime, # 60 capsule, 11 Refills, Maintenance, 06/25/21 12:00:00 EST, Capsule, [facility], Partial fill upon patient request if the prescription is for a schedule II opioid drug., 165, cm, 06/25/21 11:35:... Start Date: 06/25/21 Status: Ordered duloxetine 60 mg oral enteric coated capsule 1 capsule = 60 mg, By Mouth, Daily in AM, 0 Refills, Maintenance, 07/30/18 11:21:14 EST Start Date: 07/30/18 Status: Ordered Freestyle Lancets See Instructions, # 100 each, Refills 3, Tot. Refills 3, Maintenance, check twice daily for Type 2 Diabetes Mellitus, 07/07/23 15:12:00 EST, Supply, 160, cm, 07/07/23 15:02:00 EST, Height, 112.4, kg,06/24/23 17:38:00 EST, Dry Weight Start Date: 07/07/23 Stop Date: 11/04/23 Status: Ordered Freestyle Test Strips See Instructions, # 200 each, Refills 0, Tot. Refills 0, Maintenance, use as directed for Type 1 Diabetes Mellitus, 07/24/23 22:35:00 EST, DX- DM; check sugar once daily, Supply, 160, cm, 07/07/23 15:02:00 EST, Height, 112.4, kg, 06/24/23 17:38:00 EST... Start Date: 07/24/23 Stop Date: 08/23/23 Status: Ordered furosemide 40 mg oral tablet See Instructions, TAKE ONE TABLET BY MOUTH EVERY DAY ^1R1, # 30 tablet, Refills 5, Maintenance, 07/28/23 12:39:00 EST, Instructions Replace Required Details, Route to Pharmacy Electronically, [facility], 160, cm, 07/07/23 15:02:00 EST, Height,... Start Date: 07/28/23 Status: Ordered furosemide 40 mg oral tablet 40 mg, 1, tablet, By Mouth, Daily, # 90 tablet, Refills 1, Tot. Refills 1, Maintenance, 03/02/23 18:12:00 EDT, Route to Pharmacy Electronically, [facility], Partial fill upon patient request if the prescription is for a schedule II opioid drug... Start Date: 03/02/23 Status: Ordered ipratropium nasal 21 mcg/inh spray 2 sprays = 42 mcg, Nares, Both, 2 times a day, # 30 mL, 5 Refills, Maintenance, 03/13/23 16:58:00 EDT, [place], [facility], Partial fill upon patient request [...] opioid drug. Start Date: 07/18/22 Status: Ordered lamotrigine 25 mg oral tablet 50 mg, 2, tablet, By Mouth, Daily at bedtime, Refills 0, Maintenance, 06/24/23 12:05:00 EST, Partial fill upon patient request if the prescription is for a schedule II opioid drug. Start Date: 06/24/23 Status: Ordered loratadine 10 mg oral tablet 1, tablet, By Mouth, Daily, R1., # 30 tablet, Refills 5, Tot. Refills 5, Maintenance, 07/01/23 14:32:00 EST, [facility], 160, cm, 06/26/23 11:21:00 EST, Height, 112.4, kg, 06/24/23 17:38:00 EST, Dry Weight Start Date: 07/01/23 Status: Ordered metFORMIN 500 mg oral tablet 1 tablet = 500 mg, By Mouth, 2 times a day, # 60 tablet, 5 Refills, Maintenance, 07/07/23 15:26:00 EST, Tablet, [facility], Partial fill upon patient request if the prescription is for a schedule II opioid drug., 160, cm, 07/07/23 15:02:00 EST... Start Date: 07/07/23 Stop Date: 01/03/24 Status: Ordered nicotine 21 mg/24 hr transdermal film, extended release 1 patch, Topically, Daily, # 30 patch, 3 Refills, Maintenance, 06/08/23 9:15:00 EST, [facility], 30, APPLY 1 PATCH TOPICALLY DAILY, 160, cm, 06/03/23 11:30:00 EST, Height, 98.8, kg, 07/17/22 8:58:00 EST, Dry Weight Start Date: 06/08/23 Status: Ordered One Touch Ultra Plus Glucose Meter One Touch Ultra Plus Glucose Meter, See Instructions, # 1 each, Refills 0, Tot. Refills 0, Maintenance, use to test bl sugar 2 times per day dx T2DM - E 11.42, 07/30/23 16:17:00 EST, Supply, 160, cm,07/07/23 15:02:00 EST, Height, 112.4, kg, 06/24/23... Start Date: 07/30/23 Status: Ordered One Touch Ultra Plus lancets One Touch Ultra Plus lancets, See Instructions, # 200 each, Refills 11, Tot. Refills 11, Maintenance, use to test bl sugar 2 times per day dx T2DM - E 11.42, 07/30/23 16:19:00 EST, Supply, 160, cm, 07/07/23 15:02:00 EST, Height, 112.4, kg, 06/24/23 1... Start Date: 07/30/23 Status: Ordered One Touch Ultra Plus test strips One Touch Ultra Plus test strips, See Instructions, # 200 each, Refills 11, Tot. Refills 11, Maintenance, use to test bl sugar 2 times per day dx T2DM - E 11.42, 07/30/23 16:18:00 EST, Supply, 160, cm, 07/07/23 15:02:00 EST, Height, 112.4, kg, ... Start Date: 07/30/23 Status: Ordered penicillin V potassium 250 mg oral tablet 1 tablet, By Mouth, 2 times a day, ^1R1,1R4., # 60 tablet, 5 Refills, Maintenance, 04/10/23 16:03:00 EDT, [facility], 160, cm, 04/02/23 12:45:00 EDT, Height, 98.8, kg, 07/17/22 8:58:00 EST, Dry Weight Start Date: 04/10/23 Status: Ordered rOPINIRole 0.5 mg oral tablet 1 tablet, By Mouth, 3 times a day, ^1R1,1R3,1R4., # 90 tablet, 5 Refills, Maintenance, 05/09/23 20:56:00 EDT, [facility], 160, cm, 04/02/23 12:45:00 EDT, Height, 98.8, kg, 07/17/22 8:58:00 EST, Dry Weight Start Date: 05/09/23 Status: Ordered rosuvastatin 10 mg oral tablet 1 tablet, By Mouth, Daily, ^1R1., # 30 tablet, 5 Refills, Maintenance, 07/01/23 14:33:00 EST, [facility], 160, cm, 06/26/23 11:21:00 EST, Height, 112.4, kg, 06/24/23 17:38:00 EST, Dry Weight Start Date: 07/01/23 Status: Ordered Symbicort 160mcg/4.5mcg Inhaler 2, puffs, Inhalation, 2 times a day, # 10.2 Gm, Refills 11, Tot. Refills 11, Maintenance, 06/03/23 11:47:00 EST, Aerosol, Route to Pharmacy Electronically, [id number], [facility], 160, cm, 06/03/23 11:30:00 EST, Height, 98.8, kg, ... Start Date: 06/03/23 Status: Ordered Xarelto 20 mg oral tablet 1 tablet = 20 mg, By Mouth, Daily at supper, # 90 tablet, 1 Refills, Maintenance, 03/02/23 18:12:00EDT, Tablet, [facility], pt was rx'd w diltiazem on d/c from recent hospitalization, 160, cm, 03/02/23 9:56:00 EDT, Height, 98.8, kg, 07/17/22... Start Date: 03/02/23 Status: Ordered Problem List Condition Confirmation Course Effective Dates Status Health Status Informant Acute exacerbation of COPD with asthma Confirmed Active Arthritis of knee - bilateral Confirmed Active Bipolar disorder NOS Confirmed Active Overactive bladder Confirmed Active Bursitis of right shoulder Confirmed Active Cervical radiculopathy - left Confirmed [...] Confirmed Active Gastric banding status Confirmed Active assisted current use of opiate analgesic Confirmed Active [...] Confirmed 06/04/12 Active Stasis dermatitis Confirmed Active Type 2 diabetes mellitus with peripheral neuropathy Confirmed Active UI (urinary incontinence) Confirmed Active 1Mild obstruction on PFT's September 2011 Social History Social History Type Response Smoking Status Current every day sm oker; Type: Cigarettes; Other: 1 pack daily; entered on: 04/19/18 Sex Female Patient Care team information Care Team Personnel Name: Sandra Wills NP Position: [facility] PCO Associate Professional Member Role: Primary Care Nurse Address: Address: [address] [facility] [place] [address]- [place] Name: Marley Alejo RN Position: S RN Member Role: Primary Care Nurse Name: Rashi Dewitt RN Position: S RN Member Role: Primary Care Nurse Name: Alma Delia Fonseca PharmD Position: [facility] Associate Professional Member Role: Lifetime Consulting Provider Address: Address: [address] [facility] [place] [address]- [place] Name: Yolis Mattson RN Position: S RN Member Role: Primary Care Nurse Name: Priscila Garzon RN Position: [facility] RN Member Role: Primary Care Nurse Name: Kyle Ahumada DO Position: [facility] Physician - Primary Care Member Role: PCP Address: Address: [address] [place] [address]- [place] Name: Renea Mart RN Position: [facility] RN Member Role: Primary Care Nurse Care Team Related Persons Name: FAUZIA JANSEN Address: home [address] [place] [address] Name: AURELIA SHETH Address: home [address] [place] [address] Name: BRE OSORIO Address: home [address] [place] [address]
--- OUTSIDE RECORDS SUMMARY | 2024-01-02 21:13 | XMS_ITS | Continuity of Care Document ---
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 Phone Kyle Ahumada DO Primary Care Physician [facility]): 07/24/23 - 08/23/23 [facility] [address] [place] [address]- Encounter Diagnosis Type 2 diabetes mellitus with hyperglycemia(Discharge Diagnosis) - 07/24/23 Allergies, Adverse Reactions, Alerts Substance Reaction Severity [...] vaccine, inactivated 05/10/07 Jarrett rded SARS-CoV-2 mRNA ([id number]) vax 08/30/21 Recorded SARS-CoV-2 (COVID-19) mRNA BNT-162b2 vac 01/02/21 Recorded SARS-CoV-2 (COVID-19) mRNA BNT-162b2 vac 12/02/20 Recorded Fluvirin (oldterm) 10 03/22/15 Given Fluzone Preservative-Free (oldterm) 11 03/12/12 Gi octavio pneumococcal 23-valent vaccine 10/08/11 Given tetanus/diphtheria/pertussis, acel(Tdap) 09/08/11 Given tetanus/diphtheria/pertussis, acel(Tdap) 12/17/06 Recorded influ virus vac, H1N1, inactive(oldterm) 12 05/08/11 Given hepatitis B adult vaccine 06/14/02 Recorded 1Result Comment: PCV 20 [facility]#[id number] 2Result Comment: Flu [facility]#[id number] 3Result Comment: [id number] 4Result Comment: [id number] 5Result Comment: [id number] 6Result Comment: [id number] 7Result Comment: [07/08/2017] [id number] 8Admin Note: [facility] 9Admin Note: [facility] 9-13 10Admin Note: Given at [facility] 11Admin Note: 03-11-12 GIVEN AT [facility] 12Admin Note: rcvd elsewhere Medications Albuterol (Eqv-ProAir HFA) 90 mcg/inh inhalation aerosol 2 puffs, Inhalation, Every 4 hours, PRN NEEDED FOR WHEEZING OR FOR SHORTNESS OF BREATH (BULK), #8.5 Gm, 5 Refills, Maintenance, 07/25/23 11:45:00 EST, [facility], 17, INHALE 2 PUFFS BY MOUTH EVERY 4 HOURS NEEDED FOR WHEEZING OR FOR SHOR... Start Date: 07/25/23 Status: Ordered cloNIDine 0.1 mg oral tablet 1, tablet, By Mouth, 2 times a day, PRN, ANXIETY (VIAL., # 56 tablet, Refills 2, Maintenance, NEEDED, 07/25/23 11:44:00 EST, Route to Pharmacy Electronically, [facility], 160, cm, 07/07/2315:02:00 EST, Height, 112.4, kg, 06/24/23 17:38:00... Start Date: 07/25/23 Status: Ordered cyclobenzaprine 5 mg oral tablet 1 tablet, By Mouth, 3 times a day, PRN NEEDED, SPASM (VIAL., # 90 tablet, 3 Refills, Maintenance, 08/19/23 10:07:00 EST, [facility], 160, cm, 07/07/23 15:02:00 EST, Height, 112.4, kg, 06/24/23 17:38:00 EST, Dry Weight Start Date: 08/19/23 Status: Ordered docusate sodium 100 mg oral capsule 100 mg, 1, capsule, By Mouth, 2 times a day, hold for loose stool, # 180 capsule, Refills 3, Tot. Refills 3, Maintenance, 03/13/23 16:56:00 EDT, Route to Pharmacy Electronically, [facility], Partial fill upon patient request if the prescriptio... Start Date: 03/13/23 Stop Date: 04/12/23 Status: Ordered duloxetine 20 mg oral enteric coated capsule 2 capsule = 40 mg, By Mouth, Daily at bedtime, # 60 capsule, 11 Refills, Maintenance, 06/25/21 12:00:00 EST, Capsule, [facility], Partial fill upon patient request if [...] Replace Required Details, Route to Pharmacy Electronically, [facility], 160, cm, 07/07/23 15:02:00 EST, Height,... Start Date: 07/28/23 Status: Ordered furosemide 40 mg oral tablet 40 mg, 1, tablet, By Mouth, Daily, # 90 tablet, Refills 1, Tot. Refills 1, Maintenance, 03/02/23 18:12:00 EDT, Route to Pharmacy Electronically, [facility], Partial fill upon patient request if the prescription is for a schedule II opioid drug... Start Date: 03/02/23 Status: Ordered Hopsital bed Hopsital bed, See Instructions, # 1 each, Refills 0, Tot. Refills 0, Maintenance, dx M48.061 187.2 150.9 will need for life time, 08/19/23 12:06:00 EST, Supply Start Date: 08/19/23 Status: Ordered ipratropium nasal 21 mcg/inh spray See Instructions, INSTILL 2 SPRAYS IN EACH NOSTRIL TWO TIMES A DAY, # 30 mL, 11 Refills, Maintenance, 08/11/23 7:46:00 EST, [facility], 30, INSTILL 2 SPRAYS IN EACH NOSTRIL TWO TIMES A DAY, 160, cm, 07/07/23 15:02:00 EST, Height, 112.4, kg, 11... Start Date: 08/11/23 Status: Ordered lamotrigine 200 mg oral tablet 1 tablet = 200 mg, By Mouth, Daily at bedtime, 0 Refills, Maintenance, 07/18/22 8:57:00 EST, Tablet, Partial fill upon patient request if the prescription is for a schedule II opioid drug. Start Date: 12/23/22 Status: Ordered lamotrigine 25 mg oral tablet [...] 07/01/23 14:32:00 EST, Route to Pharmacy Electronically, [facility], 160, cm, 06/26/23 11:21:00 EST, Height, 112.4, kg, 06/24/23 17:38:00 EST, Dry Weight Start Date: 07/01/23 Status: Ordered metFORMIN 500 mg oral tablet 1 tablet = 500 mg, By Mouth, 2 times a day, # 60 tablet, 5 Refills, Maintenance, 07/07/23 15:26:00 EST, Tablet, [facility], Partial fill upon patient request if the prescription is for a schedule II opioid drug., 160, cm, 07/07/23 15:02:00 EST... Start Date: 07/07/23 Stop Date: 01/03/24 Status: Ordered nicotine 21 mg/24 hr transdermal film, extended release 1 patch, Topically, Daily, # 30 patch, 3 Refills, Maintenance, 06/08/23 9:15:00 EST, [facility], 30, APPLY 1 PATCH TOPICALLY DAILY, [...] ^1R1,1R4., # 60 tablet, 5 Refills, Maintenance, 08/19/23 10:06:00 EST, [facility], 160, cm, 07/07/23 15:02:00 EST, Height, 112.4, kg, 06/24/23 17:38:00 EST,Dry Weight Start Date: 08/19/23 Status: Ordered rOPINIRole 0.5 mg oral tablet 1 tablet, By Mouth, 3 times a day, ^1R1,1R3,1R4., # 90 tablet, 5 Refills, Maintenance, 05/09/23 20:56:00 EDT, [facility], 160, cm, 04/02/23 12:45:00 EDT, Height, 98.8, kg, 07/17/22 8:58:00 EST, Dry Weight Start Date: 05/09/23 Status: Ordered rosuvastatin 10 mg oral tablet 1 tablet, By Mouth, Daily, ^1R1., # 30 tablet, 5 Refills, Maintenance, 07/01/23 14:33:00 EST, [facility], 160, cm, 06/26/23 11:21:00 EST, Height, 112.4, kg, 06/24/23 17:38:00 EST, Dry Weight Start Date: 07/01/23 Status: Ordered Symbicort 160mcg/4.5mcg Inhaler 2, puffs, Inhalation, 2 times a day, # 10.2 Gm, Refills 11, Tot. Refills 11, Maintenance, 06/03/23 11:47:00 EST, Aerosol, Route to Pharmacy Electronically, [facility]DP_[id number], [facility], 160, cm, 06/03/23 11:30:00 EST, Height, 98.8, kg, ... Start Date: 06/03/23 Status: Ordered Xarelto 20 mg oral tablet 1 tablet, By Mouth, Daily in PM, ^1R4., # 30 tablet, 5 Refills, Maintenance, 08/11/23 11:28:00 EST,[facility], 160, cm, 07/07/23 15:02:00 EST, Height, 112.4, kg, 06/24/23 17:38:00 EST, Dry Weight Start Date: 08/11/23 Status: Ordered Problem List Condition Confirmation Course Effective Dates Status Health Status Informant Acute exacerbation of COPD with asthma Confirmed Active Arthritis of knee - bilateral Confirmed Active Bipolar disorder NOS Confirmed Active Overactive bladder Confirmed Active Bursitis of right shoulder Confirmed Active Chronic cellulitis Confirmed Active Cervical radiculopathy - left Confirmed [...] Confirmed Active Gastric banding status Confirmed Active 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 Active [...] Effective Dates Health Status Clinical Service Informant Type 2 diabetes mellitus with hyperglycemia Discharge Diagnosis 07/24/23 Social History Social History Type Response Smoking Status Current every day sm oker; Type: Cigarettes; Other: 1 pack daily; entered on: 04/19/18 Sex Female Patient Care team information Care Team Personnel Name: Sandra Wills NP Position: [facility] PCO Associate Professional Member Role: Primary Care Nurse Address: Address: [address] [place] [address] [place] [address]- [place] Name: Marley Alejo RN Position: [facility] RN Member Role: Primary Care Nurse Name: Rashi Dewitt RN Position: [facility] RN Member Role: Primary Care Nurse Name: Alma Delia Fonseca PharmD Position: [facility] Associate Professional Member Role: Lifetime Consulting Provider Address: Address: [address] [place] [address] [place] [address]- [place] Name: Yolis Mattson RN Position: [facility] RN Member Role: Primary Care Nurse Name: Priscila Garzon RN Position: [facility] RN Member Role: Primary Care Nurse Name: Kyle Ahumada DO Position: [facility] Physician - Primary Care Member Role: PCP Address: Address: [address] [place] [address] [place] [address]- [place] Name: Renea Mart RN Position: [facility] RN Member Role: Primary Care Nurse Care Team Related Persons Name: FAUZIA JANSEN Address: home [address] [place] [address] Name: AURELIA SHETH Address: [address] [place] [address] Name: BRE OSORIO Address: [address] [place] [address]
--- OUTSIDE RECORDS SUMMARY | 2024-01-02 21:13 | XMS_ITS | Continuity of Care Document ---
Author Organization [facility] Robin Jane Nolberto lt Address [address] [place] [address]- Care Team Providers Care Production Tester Name Role Phone Krishan GRIDER, Eulogio Molina Primary Care Physician [phone] Encounter [facility] Date(s): 09/04/21 - 10/04/21 [facility] Robin Bolañosley Adult [address] [place] [address]- Allergies, Adverse Reactions, Alerts Substance Reaction Severity Status Adhesive Bandage Active Dust copd exac/sinus congestion A ctive Immunizations Given and Recorded Vaccine Date Status Refusal Reason SARS-CoV-2 mRNA (eeuwsly-orwp-uexeu) vax 08/30/21 Recorded influenza virus vaccine, inactivated 1 06/25/21 Gi [...] B adult vaccine 06/14/02 Recorded 1Result Comment: [id number] 2Result Comment: [id number] 3Result Comment: [id number] 4Result Comment: [07/08/2017] [id number] 5Admin Note: [facility] 6Admin Note: [facility] [...] 8.5 Gm, 5 Refills, 05/29/21 17:13:00 EDT, [facility] #[id number], 17, INHALE 2 PUFFS BY MOUTH EVERY 4 HOURS NEEDED FOR WHEEZING OR SHORTNE... Start Date: 05/29/21 Status: Ordered calcipotriene 0.005% topical cream 1 application, Topically, 2 times a day, # 60 Gm, 11 Refills, Maintenance, 10/31/20 14:14:00 EDT, Cream, [facility] #[id number], Partial fill upon patient request if the prescription is for a schedule II opioid drug., 1 application Topically 2 ti... Start Date: 10/31/20 Status: Ordered chlorthalidone 25 mg oral tablet 1, tablet, By Mouth, Daily, # 90 tablet, Refills 3, [facility], 165, cm, 06/25/21 11:35:00 EST, Height, 127, kg, 07/10/20 14:39:00 EDT, Dry Weight Start Date: 07/09/21 Status: Ordered Disposable Absorbant Pads 23 x [...] 11 Refills, Maintenance, 06/25/21 12:00:00 EST, Capsule, [facility], Partial fill upon patient request if [...] Gm, 3 Refills, Maintenance, 06/22/20 14:58:00 EST, [facility] #[id number], 165, cm, 06/07/20 13:52:00 EST, Height, 127, kg, 02/03/20 14:39:00EDT, Dry Weight Start Date: 06/22/20 Status: Ordered Freestyle Lite Lancets See Instructions, # 200 each, Refills 11, Tot. Refills 11, Maintenance, Check glucose twice daily. T2DM Dx code E11.9, 02/25/21 11:02:00 EDT, Supply, 165, cm, 01/11/21 14:05:00 EDT, Height, 127, kg, 02/03/20 14:39:00 EDT, Dry Weight Start Date: 02/25/21 Status: Ordered gabapentin 300 mg oral capsule See Instructions, 1 capsule By Mouth qhs x 1 week, then bid x 1 week, then tid, # 90 capsule, Refills 1, Tot. Refills 1, Maintenance, 09/05/21 6:13:00 EST, Instructions Replace Required Details, Route to Pharmacy Electronically, [facility] [place] Start Date: 09/05/21 Status: Ordered HydrOXYzine PRn , rare use, 0 Refills, Maintenance, 04/30/20 15:04:00 EDT Start Date: 04/30/20 Status: Ordered ipratropium nasal 21 mcg/inh spray 2 sprays, Nares, Both, 2 times a day, # 30 mL, 5 Refills, Maintenance, 10/01/18 10:08:42 EST, [facility], 2 sprays Nares, Both 2 times a day Start Date: 10/01/18 Status: Ordered lamotrigine 200 mg oral tablet 1 tablet = 200 mg, By Mouth, Daily at bedtime, 0 Refills, Maintenance, 02/19/18 15:03:43 EDT Start Date: 02/19/18 Status: Ordered loratadine 10 mg oral tablet See Instructions, TAKE 1 TABLET BY MOUTH ONCE A DAY, # 90 tablet, Refills 1, Instructions Replace Required Details, Route to Pharmacy Electronically, [facility], 165, cm, 06/25/21 11:35:00 EST, Height, [...] tablet, 6Refills, Maintenance, 05/21/21 11:19:00 EDT, Tablet, [facility], Partial fill upon patient request if the prescription is for a schedule II... Start Date: 05/21/21 Status: Ordered methenamine hippurate 1 gm oral tablet 1 tablet = 1 Gm, By Mouth, 2 times a day, # 60 tablet, 11 Refills, Maintenance, 07/05/21 14:00:00 EST, [facility], Partial fill upon patient request if the prescription is for a schedule II opioid drug., 165, cm, 02/28/21 14:22:00 EDT, Height,... Start Date: 07/05/21 Status: Ordered Mitigare 0.6 mg oral capsule 1 capsule, By Mouth, Daily, # 30 capsule, 11 Refills, Maintenance, 12/31/20 16:51:00 EDT, [facility] #[id number], 165, cm, 11/19/20 11:32:00 EDT, Height, 127, kg, 02/03/20 14:39:00 EDT, Dry Weight Start Date: 12/31/20 Status: Ordered penicillin V potassium 250 mg oral tablet 1 tablet = 250 mg, By Mouth, 2 times a day, Cellulitis prophylaxis, # 60 tablet, 11 Refills, Maintenance, 10/30/20 12:09:00 EDT, [facility] #[id number], 165, cm, 10/19/20 8:59:00 EDT, Height, 127, kg, 02/03/20 14:39:00 EDT, Dry Weight Start Date: 10/30/20 Status: Ordered propranolol 20 mg oral tablet 20 mg, 1, tablet, By Mouth, 2 times a day, Stop metoprolol, # 60 tablet, Refills 5, Tot. Refills 5,Maintenance, 09/05/21 6:13:00 EST, Route to Pharmacy Electronically, [facility], Partial fill upon patient request if the prescription is for a... Start Date: 09/05/21 Status: Ordered risperiDONE 1 mg oral tablet take 1 tablet by mouth twice a day Start Date: 05/23/19 Status: Ordered rOPINIRole 0.5 mg oral tablet 1 tablet, By Mouth, 3 times a day, # 90 tablet, 3 Refills, [facility], 165, cm, 06/25/21 11:35:00 EST, Height, 127, kg, 02/03/20 14:39:00 EDT, Dry Weight Start Date: 07/09/21 Status: Ordered rosuvastatin 10 mg oral tablet 1 tablet = 10 mg, By Mouth, Daily, # 90 tablet, 1 Refills, Maintenance, 05/20/21 15:53:00 EDT, Tablet, [facility], d/c rx for capsules, 165, cm, 02/28/21 14:22:00 EDT, Height, 127, kg, 02/03/20 14:39:00 EDT, Dry Weight Start Date: 05/20/21 Status: Ordered Trulicity Pen 1.5 mg/0.5 mL subcutaneous solution 0.5 mL = 1.5 mg, Subcutaneous Injection, Every week, take on same day every week, rotate injection sites E11.9, # 2 mL, 6 Refills, Maintenance, 07/23/21 10:03:00 EST, Solution, Partial fill upon patient request if the prescription is for a schedule... Start Date: 07/23/21 Status: Ordered warfarin 2.5 mg oral tablet See Instructions, Dosing Subject To Change per INR Result per MD, # 30 each, 6 Refills, Maintenance, 06/12/21 17:09:00 EST, Tablet, [facility], Dosing Subject To Change per INR Result per MD,165, cm, 05/21/21 10:54:00 EDT, Height, 127, kg, 07... Start Date: 06/12/21 Status: Ordered warfarin 5 mg oral tablet See Instructions, Dosing Subject To Change Per INR Result per MD, # 30 each, 6 Refills, Maintenance, 06/12/21 17:05:00 EST, Tablet, [facility], PLEASE GIVE BOTH 5MG TABLETS AND [...] long-term use(Confirmed) Active Gastric banding status(Confirmed) Active intermediate current use of 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
--- OUTSIDE RECORDS SUMMARY | 2024-01-02 21:13 | XMS_ITS | Continuity of Care Document ---
Author Organization [facility] Cheraw Nolberto lt Address [address] [place] [address]- Care Team Providers Care Ballast Inspector Name Role Phone Kyle Ahumada DO Primary Care Physician [place] [facility] [place] [facility]03[place]23 [place] 09/02/23 [facility] Adult [address] [place] [address]- Attending Physician: Admtr, Desire Admitting Physician: AdmtrDesire Referring Physician: Admtr, Ar8 Allergies, Adverse Reactions, Alerts Substance Reaction Severity [...] vaccine, inactivated 05/10/07 Jarrett rded SARS-CoV-2 mRNA (rustiyd-fkbj-sywbb) vax 08/30/21 Recorded SARS-CoV-2 (COVID-19) mRNA BNT-162b2 vac 01/02/21 Recorded SARS-CoV-2 (COVID-19) mRNA BNT-162b2 vac 12/02/20 Recorded Fluvirin (oldterm) 10 03/22/15 Given Fluzone Preservative-Free (oldterm) 11 03/12/12 Gi octavio pneumococcal 23-valent vaccine 10/08/11 Given tetanus/diphtheria/pertussis, acel(Tdap) 09/08/11 Given tetanus/diphtheria/pertussis, acel(Tdap) 12/17/06 Recorded influ virus vac, H1N1, inactive(oldterm) 12 05/08/11 Given hepatitis B adult vaccine 06/14/02 Recorded 1Result Comment: PCV 20 [facility]#[id number] 2Result Comment: Flu [facility]#[id number] 3Result Comment: [id number] 4Result Comment: [id number] 5Result Comment: [id number] 6Result Comment: [id number] 7Result Comment: [07/08/2017] [id number] 8Admin Note: [facility] 9Admin Note: [facility] 9-13 10Admin Note: Given at [facility] 11Admin Note: 03-11-12 GIVEN AT [facility] 12Admin Note: rcvd elsewhere Medications Albuterol (Eqv-ProAir HFA) 90 mcg/inh inhalation aerosol 2 puffs, Inhalation, Every 4 hours, PRN NEEDED FOR WHEEZING OR FOR SHORTNESS OF BREATH (BULK), #8.5 Gm, 5 Refills, Maintenance, 07/25/23 11:45:00 EST, [facility], 17, INHALE 2 PUFFS BY MOUTH EVERY 4 HOURS NEEDED FOR WHEEZING OR FOR SHOR... Start Date: 07/25/23 Status: Ordered cloNIDine 0.1 mg oral tablet 1, tablet, By Mouth, 2 times a day, PRN, ANXIETY (VIAL., # 56 tablet, Refills 2, Maintenance, NEEDED, 07/25/23 11:44:00 EST, Route to Pharmacy Electronically, [facility], 160, cm, 07/07/2315:02:00 EST, Height, 112.4, kg, 06/24/23 17:38:00... Start Date: 07/25/23 Status: Ordered cyclobenzaprine 5 mg oral tablet 1 tablet, By Mouth, 3 times a day, PRN NEEDED, SPASM (VIAL., # 90 tablet, 3 Refills, Maintenance, 08/19/23 10:07:00 EST, [facility], 160, cm, 07/07/23 15:02:00 EST, Height, 112.4, kg, 06/24/23 17:38:00 EST, Dry Weight Start Date: 08/19/23 Status: Ordered docusate sodium 100 mg oral capsule 100 mg, 1, capsule, By Mouth, 2 times a day, hold for loose stool, # 180 capsule, Refills 3, Tot. Refills 3, Maintenance, 03/13/23 16:56:00 EDT, [facility], Partial fill upon patient request if the prescriptio... Start Date: 03/13/23 Stop Date: 04/12/23 Status: Ordered duloxetine 20 mg oral enteric coated capsule 2 capsule = 40 mg, By Mouth, Daily at bedtime, # 60 capsule, 11 Refills, Maintenance, 06/25/21 12:00:00 EST, Capsule, [facility], Partial fill upon patient request [...] Replace Required Details, Route to Pharmacy Electronically, [facility], 160, cm, 07/07/23 15:02:00 EST, Height,... Start Date: 07/28/23 Status: Ordered furosemide 40 mg oral tablet 40 mg, 1, tablet, By Mouth, Daily, # 90 tablet, Refills 1, Tot. Refills 1, Maintenance, 03/02/23 18:12:00 EDT, Route to Pharmacy Electronically, [facility], Partial fill upon patient request if [...] mL, 11 Refills, Maintenance, 08/11/23 7:46:00 EST, [facility], 30, INSTILL 2 SPRAYS IN EACH [...] Route to Pharmacy Electronically, [facility], 160, cm, 06/26/23 11:21:00 EST, Height, 112.4, kg, 06/24/23 17:38:00 EST, Dry Weight Start Date: 07/01/23 Status: Ordered metFORMIN 500 mg oral tablet 1 tablet = 500 mg, By Mouth, 2 times a day, # 60 tablet, 5 Refills, Maintenance, 07/07/23 15:26:00 EST, Tablet, [facility], Partial fill upon patient request if the prescription is for a schedule II opioid drug., 160, cm, 07/07/23 15:02:00 EST... Start Date: 07/07/23 Stop Date: 01/03/24 Status: Ordered nicotine 21 mg/24 hr transdermal film, extended release 1 patch, Topically, Daily, # 30 patch, 3 Refills, Maintenance, 06/08/23 9:15:00 EST, [facility], 30, APPLY 1 PATCH TOPICALLY [...] cm, 07/07/23 15:02:00 EST, Height, 112.4, kg, 06/24/... Start Date: 07/30/23 Status: Ordered penicillin V potassium 250 mg oral tablet 1 tablet, By Mouth, 2 times a day, ^1R1,1R4., # 60 tablet, 5 Refills, Maintenance, 08/19/23 10:06:00 EST, [facility], 160, cm, 07/07/23 15:02:00 EST, Height, 112.4, kg, 06/24/23 17:38:00 EST,Dry Weight Start Date: 08/19/23 Status: Ordered rOPINIRole 0.5 mg oral tablet 1 tablet, By Mouth, 3 times a day, ^1R1,1R3,1R4., # 90 tablet, 5 Refills, Maintenance, 05/09/23 20:56:00 EDT, [facility], [facility], cm, 04/02/23 12:45:00 EDT, Height, 98.8, kg, 07/17/22 8:58:00 EST, Dry Weight Start Date: 05/09/23 Status: Ordered rosuvastatin 10 mg oral tablet 1 tablet, By Mouth, Daily, ^1R1., # 30 tablet, 5 Refills, Maintenance, 07/01/23 14:33:00 EST, [facility], 160, cm, 06/26/23 11:21:00 EST, Height, 112.4, kg, 06/24/23 17:38:00 EST, Dry Weight Start Date: 07/01/23 Status: Ordered Symbicort 160mcg/4.5mcg Inhaler 2, puffs, Inhalation, 2 times a day, # 10.2 Gm, Refills 11, Tot. Refills 11, Maintenance, 06/03/23 11:47:00 EST, Aerosol, Route to Pharmacy Electronically, [id number], [facility], 160, cm, 06/03/23 11:30:00 EST, Height, 98.8, kg, 2... 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 [...] Response Smoking Status Current every day ruddy [facility]; Type: Cigarettes; Other: 1 pack daily; entered on: 04/19/18 Sex Female Hospital Consult note * Event Display: Inpatient Consult Note, Non-BH Authored Date: * Event Display: Inpatient Consult Note, Non-BH Authored Date: * Event Display: Inpatient Consult Note, Non-BH Authored Date: * Event Display: Inpatient Consult Note, Non-BH Authored Date: Laboratory * Event Display: Non BH Lab Results Authored Date: Cardiology * Event Display: Cardiology Office Note, Non-BH Authored Date: * Event Display: Cardiology Office Note, Non-BH Authored Date: * Event Display: Cardiology Office Note, Non-BH Authored Date: Radiology * Event Display: MRI Spine, Non- BH Authored Date: * Courtney Onofre.: PERFORM Event Display: Radiology Results Scanned Authored Date: * Marley Goldsmith: PERFORM Event Display: Radiology Results Scanned Authored Date: * Tamie Mccormick: PERFORM Event Display: Radiology Results Scanned Authored Date: Note * Maxine Cuevas: PERFORM, SIGN, VERIFY Event Display: Patient Education/Instruction Authored Date: [facility] JT Carr Clinical Summary Person Information Name FRANKLIN HARRISON Age 45 Years 1965 12:00 AM PCP Radha GRIDER , Fuentes Kenny PCP Reason for Visit: Allergy Info: NKA Vital Signs Height Weight BMI Blood Pressure / Temperature Pulse Rate Respiratory Rate 02 Sat Mode of Delivery / Medication Information Albuterol (ProAir HFA 90 mcg/inh inhalation aerosol with adapter) 1 puffs, Inhalation, every 4 hours, As Needed, for wheezing, Refills: 0 Carbinoxamine (carbinoxamine 4 mg oral tablet) 1 tablet, Oral, every 6 hours, As Needed, Itch, Refills: 0 Durable Medical Equipment (COMODE) , See Instructions, DX DECONDITIONING, EDEMA AND OBESITY, Refills: 0 Durable Medical Equipment (PHYSICAL THERAPHY) , See Instructions, DIAGNOSIS AND TREAT DECONDITIONING EDEMA OBESITY, 8 week(s), Refills: 0 Furosemide (furosemide 40 mg oral tablet) 1 tablet, Oral, Tomorrow, Refills: 11 Gabapentin (gabapentin 600 mg oral tablet) 1 tablet, Oral, 3 times a day, Refills: 11 Hydrocortisone Topical (Westcort valerate 0.2% cream) 1 application, Topically, twice a day, Refills: 3 Hydromorphone (hydromorphone 2 mg oral tablet) 1 tablet, Oral, every 4 hours, As Needed, Pain , Severe, Refills: 0 Lamotrigine (Lamictal 200 mg oral tablet) 1 tablet, Oral, Daily at Bedtime, Refills: 0 Phenytoin (phenytoin 200 mg oral capsule, extended release) 1 capsule, Oral, twice a day, Refills: 5 Sertraline (Zoloft 50 mg oral tablet) 1 tablet, Oral, Tomorrow, Refills: 0 Warfarin (warfarin 5 mg oral tablet) 1 tablet, Oral, Tomorrow, Refills: 11 Problem List Date Problem 09/08/11 Chronic back pain 09/08/11 Chronic pain syndrome 09/08/11 Essential tremor 09/08/11 Venous insufficiency of leg 09/08/11 Fibromyalgia 10/20/11 Seizure 10/23/11 DVT - Deep vein thrombosis 10/23/11 Deep venous thrombosis If the following labs have been performed in the last year, the most recent result is displayed below. Diagnostic Results Lab Result Value Date Lead Hemoglobin A1C LDL HDL Triglycerides Total Cholesterol Disclaimer: The information provided is of a general nature and is intended to be used in conjunction with the recommendations and advice of your health care practitioner. Every effort has been made to ensure that the information provided is accurate and complete at the time it is provided to you however, as your needs change, or, as new information becomes available, different or additional instructions may be required. If you have questions, please consult with your primary care provider or pharmacist, as appropriate. This information is not intended to serve as substitution for assessment and evaluation by a qualified health care provider. If you do not have a primary care provider, you may find a [facility] provider by calling [facility] at [phone]. Patient Education Information Follow-up Details: Patient Education Material: Patient Care team information Care Team Personnel Name: Sandra Wills NP Position: [facility] PCO Associate Professional Member Role: Primary Care Nurse Address: Address: [address] [place] [address] [place] [address]- [place] Name: Marley Alejo RN Position: [facility] RN Member Role: Primary Care Nurse Name: Rashi Dewitt RN Position: [facility] RN Member Role: Primary Care Nurse Name: Alma Delia Fonseca PharmD Position: [facility] Associate Professional Member Role: Lifetime Consulting Provider Address: Address: [address] [place] [address] [place] [address]- [place] Name: Yolis Mattson RN Position: [facility] RN Member Role: Primary Care Nurse Name: Priscila Garzon RN Position: [facility] RN Member Role: Primary Care Nurse Name: Kyle Ahumada DO Position: [facility] Physician - Primary Care Member Role: PCP Address: Address: [address] [place] [address]- [place] Name: Renea Mart RN Position: [facility] RN Member Role: Primary Care Nurse Care Team Related Persons Name: FAUZIA JANSEN Address: home [address] [place] [address] Name: AURELIA SHETH Address: [address] [place] [address] Name: BRE OSORIO Address: [address] [place] [address]
--- OUTSIDE RECORDS SUMMARY | 2024-01-02 21:13 | XMS_ITS | Continuity of Care Document ---
Author Organization [facility] Address [address] [place] [address], [address] [place] [address]- Care Team Providers Care Diagram Clerk Name Role Phone Eulogio Nickerson MD Primary Care Physician En[facility] Date[facility]s): 09/09/22 - 09/16/22 [facility] [address] [place] [address], [address] [place] [address]- Attending Physician: Zak Hyman MD Referring Physician: Eulogio Nickerson MD Allergies, Adverse Reactions, Alerts Substance Reaction [...] vaccine, inactivated 05/10/07 Jarrett rded SARS-CoV-2 mRNA (vahsvea-jihf-aylmy) vax 08/30/21 Recorded SARS-CoV-2 (COVID-19) mRNA BNT-162b2 vac 6/9/21 Recorded SARS-CoV-2 (COVID-19) mRNA BNT-162b2 vac 12/02/20 Recorded Fluvirin (oldterm) 8 03/22/15 Given Fluzone Preservative-Free (oldterm) 9 03/12/12 Giv en pneumococcal 23-valent vaccine 10/08/11 Given tetanus/diphtheria/pertussis, acel(Tdap) 09/08/11 Given tetanus/diphtheria/pertussis, acel(Tdap) 12/17/06 Recorded influ virus vac, H1N1, inactive(oldterm) 10 05/08/11 Given hepatitis B adult vaccine 06/14/02 Recorded 1Result Comment: [id number] 2Result Comment: [id number] 3Result Comment: [id number] 4Result Comment: [id number] 5Result Comment: [07/08/2017] [id number] 6Admin Note: [facility] 7Admin Note: [facility] [...] BREATH, # 8.5 Gm, 4 Refills, Maintenance, 09/08/22 14:55:00 EST, [facility], 30, INHALE 2 PUFFS BY MOUTH EVERY FOUR HOURS NEEDED FOR WHEEZING... Start Date: 09/08/22 Status: Ordered cloNIDine 0.1 mg oral tablet 1, tablet, By Mouth, 2 times a day, PRN, # 60 tablet, Refills 1, Maintenance, NEEDED FOR FOR ANXIETY (VIAL), 08/18/22 9:30:00 EST, Route to Pharmacy Electronically, [facility], 160, cm, 07/18/22 11:39:00 EST, Height, 98.8, kg, 07/17/22 8:58... Start Date: 08/18/22 Status: Ordered colchicine 0.6 mg oral tablet 1, tablet, By Mouth, Daily, ^1R1., # 30 tablet, Refills 11, Maintenance, 09/10/22 5:31:00 EST, Route to Pharmacy Electronically, [facility], 160, cm, 09/09/22 14:31:00 EST, Height, 98.8, kg, 07/17/22 8:58:00 EST, Dry Weight Start Date: 09/10/22 Status: Ordered docusate sodium 100 mg oral capsule 100 mg, 1, capsule, By Mouth, 2 times a day, hold for loose stool, # 60 capsule, Refills 0, Tot. Refills 0, Maintenance, 01/11/22 7:25:00 EDT, Route to Pharmacy Electronically, [facility], Partial fill upon patient request if the prescri... Start Date: 01/11/22 Stop Date: 02/10/22 Status: Ordered duloxetine 20 mg oral enteric coated capsule 2 capsule = 40 mg, By Mouth, Daily at bedtime, # 60 capsule, 11 Refills, Maintenance, 06/25/21 12:00:00 EST, Capsule, [facility], Partial fill upon patient request [...] 07/17/22 17:07:00 EST, Route to Pharmacy Electronically, [facility], 160, cm, 07/17/22 12:03:00 EST, [...] opioid drug. Start Date: 07/04/22 Status: Ordered Multaq 400 mg oral tablet 1 tablet = 400 mg, By Mouth, 2 times a day, # 60 tablet, 5 Refills, Maintenance, 07/29/22 6:50:00 EST, Tablet, [facility], Partial fill upon patient request if the prescription is for a schedule II opioid drug., 160, cm, 07/18/22 11:39:00 EST,... Start Date: 07/29/22 Status: Ordered penicillin V potassium 250 mg oral tablet 1 tablet = 250 mg, By Mouth, 2 times a day, 0 Refills, Maintenance, 07/18/22 8:56:00 EST, Tablet, Partial fill upon patient request if the prescription is for a schedule II opioid drug. Start Date: 07/18/22 Status: Ordered predniSONE 10 mg oral tablet 1 tablet = 10 mg, By Mouth, Daily, # 90 tablet, 0 Refills, Maintenance, 09/04/22 16:29:00 EST, [facility], Partial fill upon patient request if the prescription is for a schedule II opioid drug., 160, cm, 09/04/22 16:17:00 EST, Height, 98.8, k... Start Date: 09/04/22 Status: Ordered rOPINIRole 0.5 mg oral tablet See Instructions, TAKE 1 TABLET BY MOUTH THREE TIMES DAILY^1R1,1R3,1R4, # 90 tablet, 5 Refills, Maintenance, 07/24/22 23:41:00 EST, [facility], 160, cm, 07/18/22 11:39:00 EST, Height, 98.8, kg, 07/17/22 8:58:00 EST, Dry Weight Start Date: 07/24/22 Status: Ordered rosuvastatin 10 mg oral tablet 1 tablet, By Mouth, Daily, ^1R1., # 30 tablet, 5 Refills, Maintenance, 09/10/22 5:31:00 EST, [facility], 160, cm, 09/09/22 14:31:00 EST, Height, 98.8, kg, 07/17/22 8:58:00 EST, Dry Weight Start Date: 09/10/22 Status: Ordered Symbicort 80mcg/4.5mcg Inhaler See Instructions, INHALE 2 PUFFS BY MOUTH TWICE A DAY RINSE MOUTH AND THROAT AFTER USE, # 10.2 Gm, Refills 5, Maintenance, 07/30/22 21:16:00 EST, Instructions Replace Required Details, Route to Pharmacy Electronically, [id number], [facility]... 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 Active [...] Active 1Mild obstruction on PFT's September 2011 Vital Signs Most recent to oldest [Reference Range]: 1 Height 160 cm (09/09/22 2:31 PM) Weight 102.3 kg (09/09/22 2:31 PM) Body Mass Index [18.5-24.99 kg/m2] 39.96 kg/m2 *>HHI* (09/09/22 2:31 PM) Social History Social History Type Response Smoking Status Current every day ayesha entered on: 05/04/18 Sex Female Patient Care team information Care Team Personnel Name: Sandra Wills NP Position: [facility] PCO Associate Professional Member Role: Primary Care Nurse Address: Address: [address] [place] [address] [place] [address]- [place] Name: Marley Alejo RN Position: [facility] RN Member Role: Primary Care Nurse Name: Eulogio Nickerson MD Position: [facility] Primary Care Physician Member Role: PCP Address: Address: [address] [place] [address]- [place] Name: Alma Delia Fonseca PharmD Position: [facility] Associate Professional Member Role: Lifetime Consulting Provider Address: Address: [address] [facility] [place] [address]- [place] Name: Yolis Mattson RN Position: [facility] RN Member Role: Primary Care Nurse Name: Priscila Garzno RN Position: [facility] RN Member Role: Primary Care Nurse Name: Renea Mart RN Position: [facility] RN Member Role: Primary Care Nurse Care Team Related Persons Name: AYDENFAUZIA SHEFFIELD Address: home [address] [place] [id number] Name: AURELIA SHETH Address: home [address] [place] [address] Name: BRE OSORIO Address: home [address] [place] [id number]
--- OUTSIDE RECORDS SUMMARY | 2024-01-02 21:13 | XMS_ITS | Continuity of Care Document ---
Author Organization [facility] Buck Nolberto Address [address] [place] [address]- Care Team Providers Care Bioprocess Development Engineer Name Role Phone Radha GRIDER, Fuentes Kenny Primary Care Physician Encounter [facility] Date(s): 10/24/20 - 11/23/20 [facility] [place] [facility] [address] [place] [address]- Allergies, Adverse Reactions, Alerts Substance Reaction Severity [...] H1N1, inactive(oldterm) 8 05/08/11 Given 1Result Comment: [id number] 2Result Comment: [id number] 3Result Comment: [07/08/2017] [id number] 4Admin Note: [facility] 5Admin Note: [facility] [...] 11 Refills, Maintenance, 10/31/20 14:14:00 EDT, Cream, [facility] #[id number], Partial fill upon patient request if the [...] 06/04/20 12:56:00 EST, Route to Pharmacy Electronically, [facility] #[id number], please schedule appt for further refills, 165, cm, 05/16/20 14:15:00 EDT, Hei... Start Date: 06/04/20 Status: Ordered Claritin 10 mg oral tablet 10 mg, 1, tablet, By Mouth, Daily, for 90 days, # 90 tablet, Refills 3, Tot. Refills 3, Acute 07/28/21 15:22:00 EST, 08/02/20 15:22:00 EST, Route to Pharmacy Electronically, [facility] #[id number], 165, cm, 07/31/20 14:32:00 EST, Height, 127, [...] PMR, history of smoking fax to : [phone], 04... Start Date: 10/26/20 Status: Ordered Disposable [...] Gm, 3 Refills, Maintenance, 06/22/20 14:58:00 EST, [facility] #[id number], 165, cm, 06/07/20 13:52:00 EST, Height, 127, [...] mL, 5 Refills, Maintenance, 10/01/18 10:08:42 EST, [place], 2 sprays Nares, Both 2 times a [...] 08/02/20 16:13:00 EST, Route to Pharmacy Electronically, [facility] #[id number], D/C RX ON FILE FOR CLARITAN, 165, [...] tablet, 1 Refills, Maintenance, 07/12/20 13:56:00 EST, [facility] #[id number], Partial fill upon patient request if the prescription is for a schedule II opioid drug., 165, cm, 07/11/20 15:24:00 EST,... Start Date: 07/12/20 Stop Date: 07/05/21 Status: Ordered metoprolol 25 mg oral tablet 25 mg, 1, tablet, By Mouth, 2 times a day, # 60 tablet, Refills 5, Tot. Refills 5, Maintenance, 09/22/20 13:59:00 EST, Route to Pharmacy Electronically, [facility] #[id number], 165, cm, 07/31/2113:32:00 EST, Height, 127, kg, 02/03/20 14:39:00 ED... Start Date: 09/22/20 Status: Ordered Mitigare 0.6 mg oral capsule 1 capsule = 0.6 mg, By Mouth, Daily, # 30 capsule, 11 Refills, Maintenance, 10/31/20 14:29:00 EDT, [facility] #[id number], D/C RX ON FILE FOR COLCHICINE NOT [...] Daily, # 42 patch, 0 Refills, Maintenance, 11/23/20 16:57:00 EST, Patch, [facility] #[id number], Partial fill upon patient request, 165, cm, 06/07/20 13:52:00 EST, Height, 127, kg, 02/03/20 14:39:00 EDT, Dry Weight Start Date: 06/18/20 Stop Date: 07/30/20 Status: Ordered NuLYTELY with Flavor Packs oral powder for reconstitution See Instructions, Drink 240mL every 15-20 minutes until first half is gone. Repeat 6 hours prior toprocedure., # 4,000 mL, 0 Refills, Maintenance, 06/28/20 17:09:00 EST, [facility] #[id number],Partial fill upon patient request if the prescript... Start Date: 06/28/20 Status: Ordered oxyCODONE 10 mg oral tablet 1 tablet = 10 mg, By Mouth, Every 8 hours, DX Z79.891 G89.29 M47.816 OK TO FILL LESS THAN PRESCRIBED AMOUNT, # 84 tablet, 0 Refills, Maintenance, 11/05/20 17:14:00 EDT, Tablet, [facility] #[id number], 11/06/20, 165, cm, 10/19/20 8:59:00 EDT, Hei... Start Date: 11/05/20 Stop Date: 12/03/20 Status: Ordered penicillin V potassium 250 mg oral tablet 1 tablet = 250 mg, By Mouth, 2 times a day, Cellulitis prophylaxis, # 60 tablet, 11 Refills, Maintenance, 10/30/20 12:09:00 EDT, [facility] #[id number], 165, cm, 10/19/20 8:59:00 EDT, Height, 127, kg, 02/03/20 14:39:00 EDT, Dry Weight Start Date: 10/30/20 Status: Ordered predniSONE 10 mg oral tablet 1 tablet = 10 mg, By Mouth, Daily, # 30 tablet, 5 Refills, Maintenance, 11/19/20 11:50:00 EDT, Tablet, [facility] #[id number], Partial fill upon patient request if the [...] 5 Refills, Maintenance, 04/30/20 15:13:00 EDT, Tablet, [facility] #[id number], 165, cm, 04/30/20 14:30:00 EDT, Height, 127, kg, 02/03/20 14:39:00 EDT, Dry Weight Start Date: 04/30/20 Status: Ordered rosuvastatin 10 mg oral tablet 1 tablet = 10 mg, By Mouth, Daily, # 90 tablet, 3 Refills, Maintenance, 05/03/20 16:35:00 EDT, Tablet, [facility] #[id number], d/c rx for capsules, 165, cm, 04/30/20 14:30:00 EDT, Height, 127, kg, 02/03/20 14:39:00 EDT, Dry Weight Start Date: 05/03/20 Status: Ordered Ventolin HFA 108 mcg/inh inhalation aerosol with adapter 2 puffs, Inhalation, Every 4 hours, PRN Wheezing/Shortness of Breath, # 1 each, 5 Refills, Soft Stop, 11/08/20 8:46:00 EDT, 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
--- OUTSIDE RECORDS SUMMARY | 2024-01-02 21:13 | XMS_ITS | Continuity of Care Document ---
Author Organization [facility] Robin Jane Nolberto Address [address] [place] [address]- Care Team Providers Care Chief Technical Officer Name Role Phone Fuentes Garcia MD Primary Care Physician [phone] [facility]counter [facility] Date(s): 11/16/20 - 12/16/20 [facility] [address] [place] [address]- Allergies, Adverse Reactions, Alerts Substance Reaction Severity [...] H1N1, inactive(oldterm) 8 05/08/11 Given 1Result Comment: [id number] 2Result Comment: [id number] 3Result Comment: [07/08/2017] [id number] 4Admin Note: [facility] 5Admin Note: [facility] [...] 11 Refills, Maintenance, 10/31/20 14:14:00 EDT, Cream, [facility] #58520, Partial fill upon patient request if the [...] 11/27/20 10:09:00 EDT, Route to Pharmacy Electronically, [facility] #[id number], please schedule appt for further refills, 165, cm, 11/19/20 11:32:00 EDT, Hei... Start Date: 11/27/20 Status: Ordered Claritin 10 mg oral tablet 10 mg, 1, tablet, By Mouth, Daily, for 90 days, # 90 tablet, Refills 3, Tot. Refills 3, Acute 07/28/21 15:22:00 EST, 08/02/20 15:22:00 EST, Route to Pharmacy Electronically, [facility] #[id number], 165, cm, 07/31/20 14:32:00 EST, Height, 127, [...] PMR, history of smoking fax to : [phone], 04... Start Date: 10/26/20 Status: Ordered Disposable [...] Gm, 3 Refills, Maintenance, 06/22/20 14:58:00 EST, [facility] #[id number], 165, cm, 06/07/20 13:52:00 EST, Height, 127, [...] mL, 5 Refills, Maintenance, 10/01/18 10:08:42 EST, [place], 2 sprays Nares, Both 2 times a [...] 08/02/20 16:13:00 EST, Route to Pharmacy Electronically, [facility] #[id number], D/C RX ON FILE FOR CLARITAN, 165, [...] tablet, 1 Refills, Maintenance, 07/12/20 13:56:00 EST, [facility] #95433, Partial fill upon patient request if the prescription is for a schedule II opioid drug., 165, cm, 07/11/20 15:24:00 EST,... Start Date: 07/12/20 Stop Date: 07/05/21 Status: Ordered metoprolol 25 mg oral tablet 25 mg, 1, tablet, By Mouth, 2 times a day, # 60 tablet, Refills 5, Tot. Refills 5, Maintenance, 09/22/20 13:59:00 EST, Route to Pharmacy Electronically, [facility] #59016, 165, cm, 07/31/2113:32:00 EST, Height, 127, kg, 02/03/20 14:39:00 ED... Start Date: 09/22/20 Status: Ordered Mitigare 0.6 mg oral capsule 1 capsule = 0.6 mg, By Mouth, Daily, # 30 capsule, 11 Refills, Maintenance, 10/31/20 14:29:00 EDT, [facility] #06174, D/C RX ON FILE FOR COLCHICINE NOT [...] 0 Refills, Maintenance, 06/18/20 16:57:00 EST, Patch, [facility] #[id number], Partial fill upon patient request, 165, cm, 06/07/20 13:52:00 EST, Height, 127, kg, 02/03/20 14:39:00 EDT, Dry Weight Start Date: 06/18/20 Stop Date: 07/30/20 Status: Ordered NuLYTELY with Flavor Packs oral powder for reconstitution See Instructions, Drink 240mL every 15-20 minutes until first half is gone. Repeat 6 hours prior toprocedure., # 4,000 mL, 0 Refills, Maintenance, 06/28/20 17:09:00 EST, [facility] #17106,Partial fill upon patient request if the prescript... Start Date: 06/28/20 Status: Ordered oxyCODONE 10 mg oral tablet 1 tablet = 10 mg, By Mouth, Every 8 hours, DX Z79.891 G89.29 M47.816 OK TO FILL LESS THAN PRESCRIBED AMOUNT, # 84 tablet, 0 Refills, Maintenance, 12/03/20 12:33:00 EDT, Tablet, [facility] #[id number], 12/04/20, 165, cm, 11/19/20 11:32:00 EDT, He... Start Date: 12/03/20 Stop Date: 12/31/20 Status: Ordered penicillin V potassium 250 mg oral tablet 1 tablet = 250 mg, By Mouth, 2 times a day, Cellulitis prophylaxis, # 60 tablet, 11 Refills, Maintenance, 10/30/20 12:09:00 EDT, [facility] #64380, 165, cm, 10/19/20 8:59:00 EDT, Height, 127, kg, 02/03/20 14:39:00 EDT, Dry Weight Start Date: 10/30/20 Status: Ordered predniSONE 10 mg oral tablet 1 tablet = 10 mg, By Mouth, Daily, # 30 tablet, 5 Refills, Maintenance, 11/19/20 11:50:00 EDT, Tablet, [facility] #[id number], Partial fill upon patient request if the [...] 5 Refills, Maintenance, 04/30/20 15:13:00 EDT, Tablet, [facility] #58734, 165, cm, 04/30/20 14:30:00 EDT, Height, 127, kg, 02/03/20 14:39:00 EDT, Dry Weight Start Date: 04/30/20 Status: Ordered rosuvastatin 10 mg oral tablet 1 tablet = 10 mg, By Mouth, Daily, # 90 tablet, 3 Refills, Maintenance, 05/03/20 16:35:00 EDT, Tablet, [facility] #[id number], d/c rx for capsules, 165, cm, 04/30/20 14:30:00 EDT, Height, 127, kg, 02/03/20 14:39:00 EDT, Dry Weight Start Date: 05/03/20 Status: Ordered Ventolin HFA 108 mcg/inh inhalation aerosol with adapter 2 puffs, Inhalation, Every 4 hours, PRN Wheezing/Shortness of Breath, # 1 each, 5 Refills, Soft Stop, 11/08/20 8:46:00 EDT, [facility] #01335, 165, cm, 10/19/20 8:59:00 EDT, Height, 127, kg, 02/03/20 14:39:00 EDT, Dry Weight Start Date: 11/08/20 Status: Ordered warfarin 5 mg oral tablet 1 tablet = 5 mg, By Mouth, Daily, dosing subject to change pending inr lab values, # 30 tablet, 11 Refills, Maintenance, 08/31/20 15:36:00 EST, Tablet, [facility] #[id number], 165, cm, 07/31/20 14:32:00 EST, Height, 127, [...] use(Confirmed) Active 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
--- OUTSIDE RECORDS SUMMARY | 2024-01-02 21:13 | XMS_ITS | Continuity of Care Document ---
Author Organization [facility] Buck Nolberto Address [address] [place] [address]- Care Team Providers Care Server Software Engineer Name Role Phone Radha GRIDER, Fuentes Kenny Primary Care Physician [facility] Date[facility]s): 10/24/20 - 11/23/20 [facility] [address] [place] [address]- Allergies, Adverse Reactions, Alerts Substance Reaction Severity [...] H1N1, inactive(oldterm) 8 05/08/11 Given 1Result Comment: [id number] 2Result Comment: [id number] 3Result Comment: [07/08/2017] [id number] 4Admin Note: [facility] 5Admin Note: [facility] [...] 11 Refills, Maintenance, 10/31/20 14:14:00 EDT, Cream, [facility] #[id number], Partial fill upon patient request if the [...] 06/04/20 12:56:00 EST, Route to Pharmacy Electronically, [facility] #[id number], please schedule appt for further refills, 165, cm, 05/16/20 14:15:00 EDT, Hei... Start Date: 06/04/20 Status: Ordered Claritin 10 mg oral tablet 10 mg, 1, tablet, By Mouth, Daily, for 90 days, # 90 tablet, Refills 3, Tot. Refills 3, Acute 07/28/21 15:22:00 EST, 08/02/20 15:22:00 EST, Route to Pharmacy Electronically, [facility] #[id number], 165, cm, 07/31/20 14:32:00 EST, Height, 127, [...] PMR, history of smoking fax to : [phone], 04... Start Date: 10/26/20 Status: Ordered Disposable [...] Gm, 3 Refills, Maintenance, 06/22/20 14:58:00 EST, [facility] #[id number], 165, cm, 06/07/20 13:52:00 EST, Height, 127, [...] mL, 5 Refills, Maintenance, 10/01/18 10:08:42 EST, [place], 2 sprays Nares, Both 2 times a [...] 08/02/20 16:13:00 EST, Route to Pharmacy Electronically, [facility] #[id number], D/C RX ON FILE FOR CLARITAN, 165, [...] tablet, 1 Refills, Maintenance, 07/12/20 13:56:00 EST, [facility] #01513, Partial fill upon patient request if the prescription is for a schedule II opioid drug., 165, cm, 07/11/20 15:24:00 EST,... Start Date: 07/12/20 Stop Date: 07/05/21 Status: Ordered metoprolol 25 mg oral tablet 25 mg, 1, tablet, By Mouth, 2 times a day, # 60 tablet, Refills 5, Tot. Refills 5, Maintenance, 09/22/20 13:59:00 EST, Route to Pharmacy Electronically, [facility] #08510, 165, cm, 07/31/2113:32:00 EST, Height, 127, kg, 02/03/20 14:39:00 ED... Start Date: 09/22/20 Status: Ordered Mitigare 0.6 mg oral capsule 1 capsule = 0.6 mg, By Mouth, Daily, # 30 capsule, 11 Refills, Maintenance, 10/31/20 14:29:00 EDT, [facility] #52680, D/C RX ON FILE FOR COLCHICINE NOT [...] 0 Refills, Maintenance, 11/23/20 16:57:00 EST, Patch, [facility] #04894, Partial fill upon patient request, 165, cm, 06/07/20 13:52:00 EST, Height, 127, kg, 02/03/20 14:39:00 EDT, Dry Weight Start Date: 06/18/20 Stop Date: 07/30/20 Status: Ordered NuLYTELY with Flavor Packs oral powder for reconstitution See Instructions, Drink 240mL every 15-20 minutes until first half is gone. Repeat 6 hours prior toprocedure., # 4,000 mL, 0 Refills, Maintenance, 06/28/20 17:09:00 EST, [facility] #04730,Partial fill upon patient request if the prescript... Start Date: 06/28/20 Status: Ordered oxyCODONE 10 mg oral tablet 1 tablet = 10 mg, By Mouth, Every 8 hours, DX Z79.891 G89.29 M47.816 OK TO FILL LESS THAN PRESCRIBED AMOUNT, # 84 tablet, 0 Refills, Maintenance, 11/05/20 17:14:00 EDT, Tablet, [facility] #[id number], 11/06/20, 165, cm, 10/19/20 8:59:00 EDT, Hei... Start Date: 11/05/20 Stop Date: 12/03/20 Status: Ordered penicillin V potassium 250 mg oral tablet 1 tablet = 250 mg, By Mouth, 2 times a day, Cellulitis prophylaxis, # 60 tablet, 11 Refills, Maintenance, 10/30/20 12:09:00 EDT, [facility] #03098, 165, cm, 10/19/20 8:59:00 EDT, Height, 127, kg, 02/03/20 14:39:00 EDT, Dry Weight Start Date: 10/30/20 Status: Ordered predniSONE 10 mg oral tablet 1 tablet = 10 mg, By Mouth, Daily, # 30 tablet, 5 Refills, Maintenance, 11/19/20 11:50:00 EDT, Tablet, [facility] #[id number], Partial fill upon patient request if the [...] 5 Refills, Maintenance, 04/30/20 15:13:00 EDT, Tablet, [facility] #[id number], 165, cm, 04/30/20 14:30:00 EDT, Height, 127, kg, 02/03/20 14:39:00 EDT, Dry Weight Start Date: 04/30/20 Status: Ordered rosuvastatin 10 mg oral tablet 1 tablet = 10 mg, By Mouth, Daily, # 90 tablet, 3 Refills, Maintenance, 05/03/20 16:35:00 EDT, Tablet, [facility] #07141, d/c rx for capsules, 165, cm, 04/30/20 14:30:00 EDT, Height, 127, kg, 02/03/20 14:39:00 EDT, Dry Weight Start Date: 05/03/20 Status: Ordered Ventolin HFA 108 mcg/inh inhalation aerosol with adapter 2 puffs, Inhalation, Every 4 hours, PRN Wheezing/Shortness of Breath, # 1 each, 5 Refills, Soft Stop, 11/08/20 8:46:00 EDT, [facility] #05332, 165, cm, 10/19/20 8:59:00 EDT, Height, 127, kg, 02/03/20 14:39:00 EDT, Dry Weight Start Date: 11/08/20 Status: Ordered warfarin 5 mg oral tablet 1 tablet = 5 mg, By Mouth, Daily, dosing subject to change pending inr lab values, # 30 tablet, 11 Refills, Maintenance, 08/31/20 15:36:00 EST, Tablet, [facility] #[id number], 165, cm, 07/31/20 14:32:00 EST, Height, 127, [...] long-term use(Confirmed) Active 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
--- OUTSIDE RECORDS SUMMARY | 2024-01-02 21:13 | XMS_ITS | Continuity of Care Document ---
Author Organization [facility] Robin Jane Nolberto lt Address [address] [place] [address]- Care Team Providers Care Steel Floor Pan Placing Supervisor Name Role Phone Radha GRIDER, Fuentes eKnny Primary Care Physician [facility] 08[facility]30/20 [facility] Adult [address] [place] [address]- Allergies, Adverse Reactions, Alerts Substance Reaction Severity [...] H1N1, inactive(oldterm) 8 05/08/11 Given 1Result Comment: [id number] 2Result Comment: [id number] 3Result Comment: [07/08/2017] [id number] 4Admin Note: [facility] 5Admin Note: [facility] [...] 5 Refills, Maintenance, 07/03/20 9:16:00 EST, Cream, [facility] #[id number], Partial fill upon patient request if the [...] 06/04/20 12:56:00 EST, Route to Pharmacy Electronically, [facility] #[id number], please schedule appt for further refills, 165, cm, 05/16/20 14:15:00 EDT, Hei... Start Date: 06/04/20 Status: Ordered Claritin 10 mg oral tablet 10 mg, 1, tablet, By Mouth, Daily, for 90 days, # 90 tablet, Refills 3, Tot. Refills 3, Acute 07/28/21 15:22:00 EST, 08/02/20 15:22:00 EST, Route to Pharmacy Electronically, [facility] #[id number], 165, cm, 07/31/20 14:32:00 EST, Height, 127, kg,... Start Date: 08/02/20 Stop Date: 07/28/21 Status: Ordered colchicine 0.6 mg oral tablet See Instructions, take 1 tablet by mouth once daily if needed for PSEUDOGOUT pain, # 30 tablet, Refills 5, Tot. Refills 5, Soft Stop, 01/05/20 8:41:00 EDT, Instructions Replace Required Details, Route to Pharmacy Electronically, [facility] #... Start Date: 01/05/20 Status: Ordered Disposable [...] Gm, 3 Refills, Maintenance, 06/22/20 14:58:00 EST, [facility] #[id number], 165, cm, 06/07/20 13:52:00 EST, Height, 127, [...] mL, 5 Refills, Maintenance, 10/01/18 10:08:42 EST, [place], 2 sprays Nares, Both 2 times a [...] 08/02/20 16:13:00 EST, Route to Pharmacy Electronically, [facility] #[id number], D/C RX ON FILE FOR ABRAM, 165, [...] By Mouth, 2 times a day, for 30 days, # 60 capsule, 1 Refills, Acute 09/29/20 14:57:00 EST, 07/31/20 14:57:00 EST, Capsule, [facility] #[id number], Partial fill upon patient request if the prescription is for a schedule II opi... Start Date: 07/31/20 Stop Date: 09/29/20 Status: Ordered methenamine hippurate 1 gm oral tablet 1 tablet = 1 Gm, By Mouth, 2 times a day, # 60 tablet, 1 Refills, Maintenance, 07/12/20 13:56:00 EST, [facility] #[id number], Partial fill upon patient request if the prescription is for a schedule II opioid drug., 165, cm, 07/11/20 15:24:00 EST,... Start Date: 07/12/20 Stop Date: 07/05/21 Status: Ordered metoprolol 25 mg oral tablet 25 mg, 1, tablet, By Mouth, 2 times a day, # 60 tablet, Refills 5, Tot. Refills 5, Maintenance, 03/22/20 16:34:00 EDT, Route to Pharmacy Electronically, [facility] #[id number], 165, cm, 02/02/2014:39:00 EDT, Height, 127, kg, [...] 0 Refills, Maintenance, 06/18/20 16:57:00 EST, Patch, [facility] #[id number], Partial fill upon patient request, 165, cm, 06/07/20 13:52:00 EST, Height, 127, kg, 02/03/20 14:39:00 EDT, Dry Weight Start Date: 06/18/20 Stop Date: 07/30/20 Status: Ordered NuLYTELY with Flavor Packs oral powder for reconstitution See Instructions, Drink 240mL every 15-20 minutes until first half is gone. Repeat 6 hours prior toprocedure., # 4,000 mL, 0 Refills, Maintenance, 06/28/20 17:09:00 EST, [facility] #07380,Partial fill upon patient request if the prescript... Start Date: 06/28/20 Status: Ordered oxyCODONE 10 mg oral tablet 1 tablet = 10 mg, By Mouth, Every 8 hours, DX Z79.891 G89.29 M47.816 OK TO FILL LESS THAN PRESCRIBED AMOUNT, # 84 tablet, 0 Refills, Maintenance, 08/14/20 14:32:00 EST, Tablet, [facility] #[id number], 08/14/20, 165, cm, 07/31/20 14:32:00 EST, He... Start Date: 08/14/20 Stop Date: 09/11/20 Status: Ordered penicillin V potassium 250 mg [...] 5 Refills, Maintenance, 04/30/20 15:13:00 EDT, Tablet, [facility] #[id number], 165, cm, 04/30/20 14:30:00 EDT, Height, 127, kg, 02/03/20 14:39:00 EDT, Dry Weight Start Date: 04/30/20 Status: Ordered rosuvastatin 10 mg oral tablet 1 tablet = 10 mg, By Mouth, Daily, # 90 tablet, 3 Refills, Maintenance, 05/03/20 16:35:00 EDT, Tablet, [facility] #[id number], d/c rx for capsules, 165, cm, 04/30/20 14:30:00 EDT, Height, 127, kg, 02/03/20 14:39:00 EDT, Dry Weight Start Date: 05/03/20 Status: Ordered Ventolin HFA 108 mcg/inh inhalation aerosol with adapter 2 puffs, Inhalation, Every 4 hours, PRN Wheezing/Shortness of Breath, # 1 each, 11 Refills, Soft Stop, 01/19/20 11:46:00 EDT, [facility] #[id number], 165, cm, 01/16/20 6:17:00 EDT, Height, 128.1, kg, 01/16/20 6:17:00 EDT, Dry Weight Start Date: 01/19/20 Status: Ordered warfarin 5 mg oral tablet 1 tablet = 5 mg, By Mouth, Daily, dosing subject to change pending inr lab values, # 30 tablet, 5 Refills, Maintenance, 02/15/20 13:21:00 EDT, Tablet, [facility] #[id number], 165, cm, 02/03/20 14:39:00 EDT, Height, 127, [...] long-term use(Confirmed) Active Gastric banding status(Confirmed) Active [facility] current use of 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
--- OUTSIDE RECORDS SUMMARY | 2024-01-02 21:13 | XMS_ITS | Continuity of Care Document ---
Author Organization [facility] Robin Jane Nolberto Address [address] [place] [address]- Care Team Providers Care Termite Technician Name Role Phone Fuentes Garcia MD Primary Care Physician [facility]): 11[facility]07[facility]20 - 12/07/20 [facility] Robin Bolañosley Adult [address] [place] [address]- Allergies, Adverse Reactions, Alerts Substance Reaction Severity [...] H1N1, inactive(oldterm) 8 05/08/11 Given 1Result Comment: [id number] 2Result Comment: [id number] 3Result Comment: [07/08/2017] [id number] 4Admin Note: [facility] 5Admin Note: [facility] [...] 11 Refills, Maintenance, 10/31/20 14:14:00 EDT, Cream, [facility] #[id number], Partial fill upon patient request if the [...] 11/27/20 10:09:00 EDT, Route to Pharmacy Electronically, [facility] #[id number], please schedule appt for further refills, 165, cm, 11/19/20 11:32:00 EDT, Hei... Start Date: 11/27/20 Status: Ordered Claritin 10 mg oral tablet 10 mg, 1, tablet, By Mouth, Daily, for 90 days, # 90 tablet, Refills 3, Tot. Refills 3, Acute 07/28/21 15:22:00 EST, 08/02/20 15:22:00 EST, Route to Pharmacy Electronically, [facility] #[id number], 165, cm, 07/31/20 14:32:00 EST, Height, 127, [...] PMR, history of smoking fax to : [phone], 04... Start Date: 10/26/20 Status: Ordered Disposable [...] Gm, 3 Refills, Maintenance, 06/22/20 14:58:00 EST, [facility] #[id number], 165, cm, 06/07/20 13:52:00 EST, Height, 127, [...] mL, 5 Refills, Maintenance, 10/01/18 10:08:42 EST, [place], 2 sprays Nares, Both 2 times a [...] 08/02/20 16:13:00 EST, Route to Pharmacy Electronically, [facility] #[id number], D/C RX ON FILE FOR CLARITAN, 165, [...] tablet, 1 Refills, Maintenance, 07/12/20 13:56:00 EST, [facility] #[id number], Partial fill upon patient request if the prescription is for a schedule II opioid drug., 165, cm, 07/11/20 15:24:00 EST,... Start Date: 07/12/20 Stop Date: 07/05/21 Status: Ordered metoprolol 25 mg oral tablet 25 mg, 1, tablet, By Mouth, 2 times a day, # 60 tablet, Refills 5, Tot. Refills 5, Maintenance, 09/22/20 13:59:00 EST, Route to Pharmacy Electronically, [facility] #[id number], 165, cm, 07/31/2113:32:00 EST, Height, 127, kg, 02/03/20 14:39:00 ED... Start Date: 09/22/20 Status: Ordered Mitigare 0.6 mg oral capsule 1 capsule = 0.6 mg, By Mouth, Daily, # 30 capsule, 11 Refills, Maintenance, 10/31/20 14:29:00 EDT, [facility] #[id number], D/C RX ON FILE FOR COLCHICINE NOT [...] 0 Refills, Maintenance, 06/18/20 16:57:00 EST, Patch, [facility] #[id number], Partial fill upon patient request, 165, cm, 06/07/20 13:52:00 EST, Height, 127, kg, 02/03/20 14:39:00 EDT, Dry Weight Start Date: 06/18/20 Stop Date: 07/30/20 Status: Ordered NuLYTELY with Flavor Packs oral powder for reconstitution See Instructions, Drink 240mL every 15-20 minutes until first half is gone. Repeat 6 hours prior toprocedure., # 4,000 mL, 0 Refills, Maintenance, 06/28/20 17:09:00 EST, [facility] #[id number],Partial fill upon patient request if the prescript... Start Date: 06/28/20 Status: Ordered oxyCODONE 10 mg oral tablet 1 tablet = 10 mg, By Mouth, Every 8 hours, DX Z79.891 G89.29 M47.816 OK TO FILL LESS THAN PRESCRIBED AMOUNT, # 84 tablet, 0 Refills, Maintenance, 12/03/20 12:33:00 EDT, Tablet, [facility] #[id number], 12/04/20, 165, cm, 11/19/20 11:32:00 EDT, He... Start Date: 12/03/20 Stop Date: 12/31/20 Status: Ordered penicillin V potassium 250 mg oral tablet 1 tablet = 250 mg, By Mouth, 2 times a day, Cellulitis prophylaxis, # 60 tablet, 11 Refills, Maintenance, 10/30/20 12:09:00 EDT, [facility] #[id number], 165, cm, 10/19/20 8:59:00 EDT, Height, 127, kg, 02/03/20 14:39:00 EDT, Dry Weight Start Date: 10/30/20 Status: Ordered predniSONE 10 mg oral tablet 1 tablet = 10 mg, By Mouth, Daily, # 30 tablet, 5 Refills, Maintenance, 11/19/20 11:50:00 EDT, Tablet, [facility] #[id number], Partial fill upon patient request if the [...] 5 Refills, Maintenance, 04/30/20 15:13:00 EDT, Tablet, [facility] #[id number], 165, cm, 04/30/20 14:30:00 EDT, Height, 127, kg, 02/03/20 14:39:00 EDT, Dry Weight Start Date: 04/30/20 Status: Ordered rosuvastatin 10 mg oral tablet 1 tablet = 10 mg, By Mouth, Daily, # 90 tablet, 3 Refills, Maintenance, 05/03/20 16:35:00 EDT, Tablet, [facility] #[id number], d/c rx for capsules, 165, cm, 04/30/20 14:30:00 EDT, Height, 127, kg, 02/03/20 14:39:00 EDT, Dry Weight Start Date: 05/03/20 Status: Ordered Ventolin HFA 108 mcg/inh inhalation aerosol with adapter 2 puffs, Inhalation, Every 4 hours, PRN Wheezing/Shortness of Breath, # 1 each, 5 Refills, Soft Stop, 11/08/20 8:46:00 EDT, [facility] #19894, 165, cm, 10/19/20 8:59:00 EDT, Height, 127, kg, 02/03/20 14:39:00 EDT, Dry Weight Start Date: 11/08/20 Status: Ordered warfarin 5 mg oral tablet 1 tablet = 5 mg, By Mouth, Daily, dosing subject to change pending inr lab values, # 30 tablet, 11 Refills, Maintenance, 08/31/20 15:36:00 EST, Tablet, [facility] #[id number], 165, cm, 07/31/20 14:32:00 EST, Height, 127, [...] use(Confirmed) Active Gastric banding status(Confirmed) Active 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
--- OUTSIDE RECORDS SUMMARY | 2024-01-02 21:13 | XMS_ITS | Continuity of Care Document ---
Author Organization [facility] Robin Jane Nolberto lt Address [address] [place] [address]- Care Team Providers Care Utility Bill Complaints Investigator Name Role Phone Fuentes Garcia MD Primary Care Physician [facility]20 - 12/19/20 [facility] Robin Bolañosley Adult [address] [place] [address]- Attending Physician: Admtr, Ar8 Admitting Physician: Admtr, Ar8 Referring Physician: Admtr, Ar8 Allergies, Adverse Reactions, [...] H1N1, inactive(oldterm) 8 05/08/11 Given 1Result Comment: [id number] 2Result Comment: [id number] 3Result Comment: [07/08/2017] [id number] 4Admin Note: [facility] 5Admin Note: [facility] 9-13 6Admin Note: Given at [facility] 7Admin Note: [...] 11 Refills, Maintenance, 10/31/20 14:14:00 EDT, Cream, [facility] #[id number], Partial fill upon patient request if the [...] 11/27/20 10:09:00 EDT, Route to Pharmacy Electronically, [facility] #[id number], please schedule appt for further refills, 165, cm, 11/19/20 11:32:00 EDT, Hei... Start Date: 11/27/20 Status: Ordered Claritin 10 mg oral tablet 10 mg, 1, tablet, By Mouth, Daily, for 90 days, # 90 tablet, Refills 3, Tot. Refills 3, Acute 07/28/21 15:22:00 EST, 08/02/20 15:22:00 EST, Route to Pharmacy Electronically, [facility] #[id number], 165, cm, 07/31/20 14:32:00 EST, Height, 127, [...] PMR, history of smoking fax to : [phone], 04... Start Date: 10/26/20 Status: Ordered Disposable [...] Gm, 3 Refills, Maintenance, 06/22/20 14:58:00 EST, [facility] #[id number], 165, cm, 06/07/20 13:52:00 EST, Height, 127, [...] mL, 5 Refills, Maintenance, 10/01/18 10:08:42 EST, [place], 2 sprays Nares, Both 2 times a [...] 08/02/20 16:13:00 EST, Route to Pharmacy Electronically, [facility] #[id number], D/C RX ON FILE FOR CLARITAN, 165, [...] tablet, 1 Refills, Maintenance, 07/12/20 13:56:00 EST, [facility] #[id number], Partial fill upon patient request if the prescription is for a schedule II opioid drug., 165, cm, 07/11/20 15:24:00 EST,... Start Date: 07/12/20 Stop Date: 07/05/21 Status: Ordered metoprolol 25 mg oral tablet 25 mg, 1, tablet, By Mouth, 2 times a day, # 60 tablet, Refills 5, Tot. Refills 5, Maintenance, 09/22/20 13:59:00 EST, Route to Pharmacy Electronically, [facility] #[id number], 165, cm, 07/31/2113:32:00 EST, Height, 127, kg, 02/03/20 14:39:00 ED... Start Date: 09/22/20 Status: Ordered Mitigare 0.6 mg oral capsule 1 capsule = 0.6 mg, By Mouth, Daily, # 30 capsule, 11 Refills, Maintenance, 10/31/20 14:29:00 EDT, [facility] #67756, D/C RX ON FILE FOR COLCHICINE NOT [...] 0 Refills, Maintenance, 06/18/20 16:57:00 EST, Patch, [facility] #[id number], Partial fill upon patient request, 165, cm, 06/07/20 13:52:00 EST, Height, 127, kg, 02/03/20 14:39:00 EDT, Dry Weight Start Date: 06/18/20 Stop Date: 07/30/20 Status: Ordered NuLYTELY with Flavor Packs oral powder for reconstitution See Instructions, Drink 240mL every 15-20 minutes until first half is gone. Repeat 6 hours prior toprocedure., # 4,000 mL, 0 Refills, Maintenance, 06/28/20 17:09:00 EST, [facility] #[id number],Partial fill upon patient request if the prescript... Start Date: 06/28/20 Status: Ordered oxyCODONE 10 mg oral tablet 1 tablet = 10 mg, By Mouth, Every 8 hours, DX Z79.891 G89.29 M47.816 OK TO FILL LESS THAN PRESCRIBED AMOUNT, # 84 tablet, 0 Refills, Maintenance, 12/03/20 12:33:00 EDT, Tablet, [facility] #[id number], 12/04/20, 165, cm, 11/19/20 11:32:00 EDT, He... Start Date: 12/03/20 Stop Date: 12/31/20 Status: Ordered penicillin V potassium 250 mg oral tablet 1 tablet = 250 mg, By Mouth, 2 times a day, Cellulitis prophylaxis, # 60 tablet, 11 Refills, Maintenance, 10/30/20 12:09:00 EDT, [facility] #78370, 165, cm, 10/19/20 8:59:00 EDT, Height, 127, kg, 02/03/20 14:39:00 EDT, Dry Weight Start Date: 10/30/20 Status: Ordered predniSONE 10 mg oral tablet 1 tablet = 10 mg, By Mouth, Daily, # 30 tablet, 5 Refills, Maintenance, 11/19/20 11:50:00 EDT, Tablet, [facility] #45792, Partial fill upon patient request if the [...] 5 Refills, Maintenance, 04/30/20 15:13:00 EDT, Tablet, [facility] #89706, 165, cm, 04/30/20 14:30:00 EDT, Height, 127, kg, 02/03/20 14:39:00 EDT, Dry Weight Start Date: 04/30/20 Status: Ordered rosuvastatin 10 mg oral tablet 1 tablet = 10 mg, By Mouth, Daily, # 90 tablet, 3 Refills, Maintenance, 05/03/20 16:35:00 EDT, Tablet, [facility] #50050, d/c rx for capsules, 165, cm, 04/30/20 14:30:00 EDT, Height, 127, kg, 02/03/20 14:39:00 EDT, Dry Weight Start Date: 05/03/20 Status: Ordered Ventolin HFA 108 mcg/inh inhalation aerosol with adapter 2 puffs, Inhalation, Every 4 hours, PRN Wheezing/Shortness of Breath, # 1 each, 5 Refills, Soft Stop, 11/08/20 8:46:00 EDT, [facility] #[id number], 165, cm, 10/19/20 8:59:00 EDT, Height, 127, kg, 02/03/20 14:39:00 EDT, Dry Weight Start Date: 11/08/20 Status: Ordered warfarin 5 mg oral tablet 1 tablet = 5 mg, By Mouth, Daily, dosing subject to change pending inr lab values, # 30 tablet, 11 Refills, Maintenance, 08/31/20 15:36:00 EST, Tablet, [facility] #[id number], 165, cm, 07/31/20 14:32:00 EST, Height, 127, [...] long-term use(Confirmed) Active Gastric banding status(Confirmed) 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
--- OUTSIDE RECORDS SUMMARY | 2024-01-02 21:13 | XMS_ITS | Continuity of Care Document ---
Author Organization [facility] Robin Jane Nolberto Address [address] [place] [address]- Care Team Providers Care Drying Room Operator Name Role Phone Fuentes Garcia MD Primary Care Physician [facility]): 03[facility]20 - 04/27/20 [facility] Robin Bolañosley Adult [address] [place] [address]- [facility] Allergies, Adverse Reactions, Alerts Substance Reaction Severity [...] H1N1, inactive(oldterm) 7 05/08/11 Given 1Result Comment: [id number] 2Result Comment: [07/08/2017] [id number] 3Admin Note: [facility] 4Admin Note: [facility] 9- 5Admin Note: Given at [facility] 6Admin Note: [...] 12/06/19 9:16:00 EDT, Route to Pharmacy Electronically, [email or web address] #[id number], please schedule appt for further refills, 162, cm, 09/21/19 12:01:00 Laurie SAPIN... Start Date: 12/06/19 Status: Ordered Claritin 10 mg oral tablet 10 mg, 1, tablet, By Mouth, Daily, for 30 days, # 30 tablet, Refills 11, Tot. Refills 11, Acute 05/11/20 17:36:41 EDT, 05/17/19 17:36:41 EDT, Route to Pharmacy Electronically, [id number] [address] Start Date: 05/17/19 Stop Date: 05/11/20 Status: Ordered colchicine 0.6 mg oral tablet See Instructions, take 1 tablet by mouth once daily if needed for PSEUDOGOUT pain, # 30 tablet, Refills 5, Tot. Refills 5, Soft Stop, 01/05/20 8:41:00 EDT, Instructions Replace Required Details, Route to Pharmacy Electronically, [email or web address] #... Start Date: 01/05/20 Status: Ordered Disposable [...] Gm, 1 Refills, Maintenance, 12/20/19 16:30:00 EDT, [facility] #[id number], 162, cm, 09/21/19 12:01:00 EST, Height, 116.4, [...] mL, 5 Refills, Maintenance, 10/01/18 10:08:42 EST, [place], 2 sprays Nares, Both 2 times a [...] 03/22/20 16:34:00 EDT, Route to Pharmacy Electronically, [email or web address] #[id number], 165, cm, 02/02/2014:39:00 EDT, Height, 127, kg, [...] AMOUNT, # 84 tablet, 0 Refills, Maintenance, 04/23/20 12:56:00 EDT, Tablet, [email or web address] #[id number], 04/24/20, 165, cm, 02/03/20 14:39:00 EDT, He... Start Date: 04/23/20 Stop Date: 05/21/20 Status: Ordered penicillin V potassium 250 mg [...] 11 Refills, Soft Stop, 01/19/20 11:46:00 EDT, [facility] #[id number], 165, cm, 01/16/20 6:17:00 EDT, Height, 128.1, kg, 01/16/20 6:17:00 EDT, Dry Weight Start Date: 01/19/20 Status: Ordered warfarin 5 mg oral tablet 1 tablet = 5 mg, By Mouth, Daily, dosing subject to change pending inr lab values, # 30 tablet, 5 Refills, Maintenance, 02/15/20 13:21:00 EDT, Tablet, [email or web address] #[email or web address], 165, cm, 02/03/20 14:39:00 EDT, Height, 127, [...]
--- OUTSIDE RECORDS SUMMARY | 2024-01-02 21:13 | XMS_ITS | Continuity of Care Document ---
Author Organization [facility] Buck Nolberto lt Address [address] [place] [address]- Care Team Providers Care Synthetic Soil Blocks Pulper Name Role Phone Fuentes Garcia MD Primary Care Physician Encounter [facility] Date(s): 06/25/21 - 07/02/21 [facility] Adult [address] [place] [address]- Encounter Diagnosis Type 2 diabetes mellitus with hyperglycemia(Discharge Diagnosis) - 06/25/21 Anticoagulant long-term use(Discharge Diagnosis) - 06/25/21 Chronic obstructive pulmonary disease (COPD)(Discharge Diagnosis) - 06/25/21 Bipolar disorder NOS(Discharge Diagnosis) - 06/25/21 Fibromyalgia(Discharge Diagnosis) - 06/25/21 Essential tremor(Discharge Diagnosis) - 06/25/21 Chronic pain syndrome(Discharge Diagnosis) - 06/25/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) - 06/25/21 Pseudoseizures(Discharge Diagnosis) - 06/25/21 Attending Physician: Fuentes Garcia MD Allergies, Adverse [...] B adult vaccine 06/14/02 Recorded 1Result Comment: [id number] 2Result Comment: [id number] 3Result Comment: [id number] 4Result Comment: [07/08/2017] [id number] 5Admin Note: [facility] 6Admin Note: [facility] 9-13 7Admin Note: Given at [facility] 8Admin Note: [...] 8.5 Gm, 5 Refills, 05/29/21 17:13:00 EDT, [facility] #[id number], 17, INHALE 2 PUFFS BY MOUTH EVERY [...] 11 Refills, Maintenance, 10/31/20 14:14:00 EDT, Cream, [facility] #[id number], Partial fill upon patient request if the prescription is for a schedule II opioid drug., 1 application Topically 2 ti... Start Date: 10/31/20 Status: Ordered Cane Cane, See Instructions, # 1 each, Refills 0, Tot. Refills 0, Maintenance, USE DAILY DJD M47.816 BILATERAL KNEE ARTHRITIS M12.9, 09/07/17 10:26:10, Compound Start Date: 09/07/17 Status: Ordered COVID 19 vaccine COVID 19 [...] PMR, history of smoking fax to : [phone], 04... Start Date: 10/26/20 Status: Ordered Disposable [...] 11 Refills, Maintenance, 06/25/21 12:00:00 EST, Capsule, [facility], Partial fill upon patient request if [...] Gm, 3 Refills, Maintenance, 06/22/20 14:58:00 EST, [facility] #[id number], 165, cm, 06/07/20 13:52:00 EST, Height, 127, [...] Refills, Maintenance, 05/24/21 16:13:00 EDT, REC Powder, [facility] #[id number], Partial fill upon patient request if the [...] mL, 5 Refills, Maintenance, 10/01/18 10:08:42 EST, [place], 2 sprays Nares, Both 2 times a [...] 08/02/20 16:13:00 EST, Route to Pharmacy Electronically, [facility] #[id number], D/C RX ON FILE FOR ABRAM, 165, [...] tablet, 6Refills, Maintenance, 05/21/21 11:19:00 EDT, Tablet, [facility], Partial fill upon patient request if the prescription is for a schedule II... Start Date: 05/21/21 Status: Ordered methenamine hippurate 1 gm oral tablet 1 tablet = 1 Gm, By Mouth, 2 times a day, # 60 tablet, 11 Refills, Maintenance, 07/05/21 14:00:00 EST, [facility], Partial fill upon patient request if the prescription is for a schedule II opioid drug., 165, cm, 02/28/21 14:22:00 EDT, Height,... Start Date: 07/05/21 Status: Ordered Mitigare 0.6 mg oral capsule 1 capsule, By Mouth, Daily, # 30 capsule, 11 Refills, Maintenance, 12/31/20 16:51:00 EDT, [facility] #[id number], 165, cm, 11/19/20 11:32:00 EDT, Height, 127, [...] 0 Refills, Maintenance, 04/11/21 9:00:00 EDT, Patch, [facility], Partial fill upon patient request, 165, cm, 02/28/21 14:22:00 EDT, Height, 127, kg, 02/03/20 14:39:00 EDT, Dry Weight Start Date: 04/11/21 Stop Date: 05/23/21 Status: Ordered NuLYTELY with Flavor Packs oral powder for reconstitution See Instructions, Drink 240mL every 15-20 minutes until first half is gone. Repeat 6 hours prior toprocedure., # 4,000 mL, 0 Refills, Maintenance, 06/28/20 17:09:00 EST, [facility] #[id number],Partial fill upon patient request if the prescript... Start Date: 06/28/20 Status: Ordered oxyCODONE 10 mg oral tablet 1 tablet = 10 mg, By Mouth, Every 8 hours, DX Z79.891 G89.29 M47.816 OK TO FILL LESS THAN PRESCRIBED AMOUNT, # 84 tablet, 0 Refills, Maintenance, 06/13/21 17:00:00 EST, Tablet, [facility] #[id number], 06/18/21, 165, cm, 05/21/21 10:54:00 EDT, He... Start Date: 06/13/21 Stop Date: 07/11/21 Status: Ordered oxyCODONE 5 mg oral tablet 10 mg, 2, tablet, By Mouth, Every 8 hours, DX Z79.891 G89.29 M47.816 OK TO FILL LESS THAN PRESCRIBED AMOUNT, # 168 tablet, Refills 0, Tot. Refills 0, Maintenance, 03/25/21 16:45:00 EDT, Route to Pharmacy Electronically, [facility] #[id number], D... Start Date: 03/25/21 Stop Date: 04/22/21 Status: Ordered penicillin V potassium 250 mg oral tablet 1 tablet = 250 mg, By Mouth, 2 times a day, Cellulitis prophylaxis, # 60 tablet, 11 Refills, Maintenance, 10/30/20 12:09:00 EDT, [facility] #[id number], 165, cm, 10/19/20 8:59:00 EDT, Height, 127, kg, 02/03/20 14:39:00 EDT, Dry Weight Start Date: 10/30/20 Status: Ordered predniSONE 5 mg oral tablet 1 tablet = 5 mg, By Mouth, Daily, # 30 tablet, 0 Refills, Maintenance, 01/11/21 14:20:00 EDT, Tablet, [facility] #[id number], Partial fill upon patient request if the prescription is for a schedule II opioid drug., 165, cm, 01/11/21 14:05:00 EDT,... Start Date: 01/11/21 Status: Ordered propranolol 20 mg oral tablet 20 mg, 1, tablet, By Mouth, 2 times a day, # 60 tablet, Refills 5, Tot. Refills 5, Maintenance, 06/25/21 11:57:00 EST, Route to Pharmacy Electronically, [facility], Partial fill upon patient request if [...] 3 times a day, # 90 tablet, 0 Refills, [facility], 165, cm, 05/21/21 10:54:00 EDT, Height, 127, kg, 02/03/20 14:39:00 EDT, Dry Weight Start Date: 06/11/21 Status: Ordered rosuvastatin 10 mg oral tablet 1 tablet = 10 mg, By Mouth, Daily, # 90 tablet, 1 Refills, Maintenance, 05/20/21 15:53:00 EDT, Tablet, [facility], d/c rx for capsules, 165, cm, 02/28/21 14:22:00 EDT, Height, 127, kg, 02/03/20 14:39:00 EDT, Dry Weight Start Date: 05/20/21 Status: Ordered Trulicity Pen 0.75 mg/0.5 mL subcutaneous solution 0.5 mL = 0.75 mg, Subcutaneous Injection, Every week, take on same day every week, rotate injectionsites E11.9, # 2 mL, 1 Refills, Maintenance, 05/21/21 11:18:00 EDT, Solution, [facility] #[id number], Partial fill upon patient request if the... Start Date: 05/21/21 Status: Ordered warfarin 2.5 mg oral tablet See Instructions, Dosing Subject To Change per INR Result per MD, # 30 each, 6 Refills, Maintenance, 06/12/21 17:09:00 EST, Tablet, [facility], Dosing Subject To Change per INR Result per MD,165, cm, 05/21/21 10:54:00 EDT, Height, 127, kg, 07... 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 2 diabetes mellitus with hyperglycemia Discharge Diagnosis 06/25/21 Anticoagulant long-term use Discharge Diagnosis 06/25/21 Chronic obstructive pulmonary disease (COPD) Discharge Diagnosis 06/25/21 Bipolar disorder NOS Discharge Diagnosis 06/25/21 Fibromyalgia Discharge Diagnosis 06/25/21 Essential tremor Discharge Diagnosis 06/25/21 Chronic pain syndrome Discharge Diagnosis 06/25/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 Discharge Diagnosis 06/25/21 Pseudoseizures Discharge Diagnosis 06/25/21 Vital Signs Most recent to oldest [Reference Range]: 1 2 Height 165 cm (06/25/21 11:35 AM) 165 cm (06/25/21 11:27 AM) Weight 104.8 kg (06/25/21 11: AM) Oxygen Saturation [94-100 %] 97 % (06/25/21 11: AM) Pulse Rate [55-90 bpm] 72 bpm (06/25/21 11:27 AM) Body Mass Index [18.5-24.99] 38.49 *>HHI* (06/25/21 11:27 AM) Blood Pressure [90-138/55-84 mm Hg] 119/ 76mm Hg (06/25/21 11:35 AM) 118/79mm Hg (06/25/21 11:27 AM) Temperature [96.8-100.4 DegF] 98.2 DegF (06/25/21 11:27 AM) Mode of Delivery (Oxygen) Room air (06/25/21 11:27 AM) Blood pressure sites Arm, left (06/25/21 11:35 AM) Arm, left (06/25/21 11:27 AM) Temperature Route Oral (06/25/21 11:27 AM) Weight Obtained Via Standing scale (06/25/21 11:27 AM) Social History Social History Type Response Smoking Status 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
--- OUTSIDE RECORDS SUMMARY | 2024-01-02 21:14 | XMS_ITS | Continuity of Care Document ---
Author Organization [facility] Robin Jane Nolberto Address [address] [place] [address]- Care Team Providers Care Media Planner / Buyer Name Role Phone Krishan GRIDER, Eulogio Molina Primary Care Physician Encounter [facility] Date(s): 09/04/21 - 10/04/21 [facility] Bolañosley Adult [address] [place] [address]- Allergies, Adverse Reactions, Alerts Substance Reaction Severity Status Adhesive Bandage Active Dust copd exac/sinus congestion A ctive Immunizations Given and Recorded Vaccine Date Status Refusal Reason SARS-CoV-2 mRNA ([id number]) vax 08/30/21 Recorded influenza virus vaccine, inactivated [...] B adult vaccine 06/14/02 Recorded 1Result Comment: [id number] 2Result Comment: [id number] 3Result Comment: [id number] 4Result Comment: [07/08/2017] [id number] 5Admin Note: [facility] 6Admin Note: [facility] [...] 8.5 Gm, 5 Refills, 05/29/21 17:13:00 EDT, [facility] #[id number], 17, INHALE 2 PUFFS BY MOUTH EVERY 4 HOURS NEEDED FOR WHEEZING OR SHORTNE... Start Date: 05/29/21 Status: Ordered calcipotriene 0.005% topical cream 1 application, Topically, 2 times a day, # 60 Gm, 11 Refills, Maintenance, 10/31/20 14:14:00 EDT, Cream, [facility] #[id number], Partial fill upon patient request if the prescription is for a schedule II opioid drug., 1 application Topically 2 ti... Start Date: 10/31/20 Status: Ordered chlorthalidone 25 mg oral tablet 1, tablet, By Mouth, Daily, # 90 tablet, Refills 3, Route to Pharmacy Electronically, [facility], 165, cm, 06/25/21 11:35:00 EST, [...] 11 Refills, Maintenance, 06/25/21 12:00:00 EST, Capsule, [facility], Partial fill upon patient request if [...] Gm, 3 Refills, Maintenance, 06/22/20 14:58:00 EST, [facility] #[id number], 165, cm, 06/07/20 13:52:00 EST, Height, 127, [...] Details, Route to Pharmacy Electronically, [facility] [place] Start Date: 09/05/21 Status: Ordered HydrOXYzine PRn , rare use, 0 Refills, Maintenance, 04/30/20 15:04:00 EDT Start Date: 04/30/20 Status: Ordered ipratropium nasal 21 mcg/inh spray 2 sprays, Nares, Both, 2 times a day, # 30 mL, 5 Refills, Maintenance, 10/01/18 10:08:42 EST, [place], 2 sprays Nares, Both 2 times a [...] Details, Route to Pharmacy Electronically, [facility], 165, cm, 06/25/21 11:35:00 EST, Height, [...] Maintenance, 05/21/21 11:19:00 EDT, Tablet, [facility], Partial fill upon patient request if the prescription is for a schedule II... Start Date: 05/21/21 Status: Ordered methenamine hippurate 1 gm oral tablet 1 tablet = 1 Gm, By Mouth, 2 times a day, # 60 tablet, 11 Refills, Maintenance, 07/05/21 14:00:00 EST, [facility], Partial fill upon patient request if the prescription is for a schedule II opioid drug., 165, cm, 02/28/21 14:22:00 EDT, Height,... Start Date: 07/05/21 Status: Ordered Mitigare 0.6 mg oral capsule 1 capsule, By Mouth, Daily, # 30 capsule, 11 Refills, Maintenance, 12/31/20 16:51:00 EDT, [facility] #[id number], 165, cm, 11/19/20 11:32:00 EDT, Height, 127, kg, 02/03/20 14:39:00 EDT, Dry Weight Start Date: 12/31/20 Status: Ordered penicillin V potassium 250 mg oral tablet 1 tablet = 250 mg, By Mouth, 2 times a day, Cellulitis prophylaxis, # 60 tablet, 11 Refills, Maintenance, 10/30/20 12:09:00 EDT, [facility] #[id number], 165, cm, 10/19/20 8:59:00 EDT, Height, 127, kg, 02/03/20 14:39:00 EDT, Dry Weight Start Date: 10/30/20 Status: Ordered propranolol 20 mg oral tablet 20 mg, 1, tablet, By Mouth, 2 times a day, Stop metoprolol, # 60 tablet, Refills 5, Tot. Refills 5,Maintenance, 09/05/21 6:13:00 EST, Route to Pharmacy Electronically, [facility], Partial fill upon patient request if the prescription is for a... Start Date: 09/05/21 Status: Ordered risperiDONE 1 mg oral tablet take 1 tablet by mouth twice a day Start Date: 05/23/19 Status: Ordered rOPINIRole 0.5 mg oral tablet 1 tablet, By Mouth, 3 times a day, # 90 tablet, 3 Refills, [facility], 165, cm, 06/25/21 11:35:00 EST, Height, 127, kg, 02/03/20 14:39:00 EDT, Dry Weight Start Date: 07/09/21 Status: Ordered rosuvastatin 10 mg oral tablet 1 tablet = 10 mg, By Mouth, Daily, # 90 tablet, 1 Refills, Maintenance, 05/20/21 15:53:00 EDT, Tablet, [facility], d/c rx for capsules, 165, cm, [...] 6 Refills, Maintenance, 06/12/21 17:09:00 EST, Tablet, [facility], Dosing Subject To Change per INR Result per MD,165, cm, 05/21/21 10:54:00 EDT, Height, 127, kg, 07... Start Date: 06/12/21 Status: Ordered warfarin 5 mg oral tablet See Instructions, Dosing Subject To Change Per INR Result per MD, # 30 each, 6 Refills, Maintenance, 06/12/21 17:05:00 EST, Tablet, [facility], PLEASE GIVE BOTH 5MG TABLETS AND [...]
--- OUTSIDE RECORDS SUMMARY | 2024-01-02 21:14 | XMS_ITS | Continuity of Care Document ---
Author Organization [facility] Buck Nolberto lt Address [address] [place] [address]- Care Team Providers Care Dietitian Assistant Name Role Phone Kyle Ahumada DO Primary Care Physician [phone] Encounter [facility] Date(s): 11/12/23 - 12/12/23 [facility] Adult [address] [place] [address]- Attending Physician: AdmtrDesire Admitting Physician: AdmtrDesire Referring Physician: Admtr, [id number] [...] vaccine, inactivated 05/10/07 Jarrett rded SARS-CoV-2 mRNA ([id number]) vax 08/30/21 Recorded SARS-CoV-2 (COVID-19) mRNA BNT-162b2 vac 01/02/21 Recorded SARS-CoV-2 (COVID-19) mRNA BNT-162b2 vac 12/02/20 Recorded Fluvirin (oldterm) 10 03/22/15 Given Fluzone Preservative-Free (oldterm) 11 03/12/12 Gi octavio pneumococcal 23-valent vaccine 10/08/11 Given tetanus/diphtheria/pertussis, acel(Tdap) 09/08/11 Given tetanus/diphtheria/pertussis, acel(Tdap) 12/17/06 Recorded influ virus vac, H1N1, inactive(oldterm) 12 05/08/11 Given hepatitis B adult vaccine 06/14/02 Recorded 1Result Comment: PCV 20 [facility]#[id number] 2Result Comment: Flu [facility]#[id number] 3Result Comment: [id number] 4Result Comment: [id number] 5Result Comment: [id number] 6Result Comment: [id number] 7Result Comment: [07/08/2017] [id number] 8Admin Note: [facility] 9Admin Note: [facility] 9-13 10Admin Note: Given at [facility] 11Admin Note: 03-11-12 GIVEN AT [facility] 12Admin Note: rcvd elsewhere Medications acetaminophen 325 mg oral tablet 2, tablet, By Mouth, Every 6 hours, PRN, # 100 tablet, Refills 5, Maintenance, NEEDED FOR MODERATE PAIN (VIAL), 09/14/23 15:41:00 EST, Route to Pharmacy Electronically, [facility], 160, cm, 07/07/23 15:02:00 EST, Height, 112.4, kg, 06/24/23... Start Date: 09/14/23 Status: Ordered Albuterol (Eqv-ProAir HFA) 90 mcg/inh inhalation aerosol 2 puffs, Inhalation, Every 4 hours, PRN NEEDED FOR WHEEZING OR FOR SHORTNESS OF BREATH (BULK), #8.5 Gm, 5 Refills, Maintenance, 07/25/23 11:45:00 EST, [facility], 17, INHALE 2 PUFFS BY MOUTH EVERY 4 HOURS NEEDED FOR WHEEZING OR FOR SHOR... Start Date: 07/25/23 Status: Ordered Alcohol Pads See Instructions, # 200 each, Refills 5, Tot. Refills 5, Maintenance, check BS 2 x a day for E11.65, 10/12/23 17:14:00 EDT, Supply, 160, cm, 07/07/23 15:02:00 EST, Height, 112.4, kg, 06/24/23 17:38:00 EST, Dry Weight Start Date: 10/12/23 Stop Date: 04/09/24 Status: Ordered cloNIDine 0.1 mg oral tablet 1, tablet, By Mouth, 2 times a day, PRN, ANXIETY (VIAL., # 56 tablet, Refills 5, Maintenance, NEEDED, 10/07/23 15:53:00 EDT, Route to Pharmacy Electronically, [facility], 160, cm, 07/07/2315:02:00 EST, Height, 112.4, kg, 06/24/23 17:38:00... Start Date: 10/07/23 Status: Ordered docusate sodium 100 mg oral capsule 100 mg, 1, capsule, By Mouth, 2 times a day, hold for loose stool, # 180 capsule, Refills 3, Tot. Refills 3, Maintenance, 03/13/23 16:56:00 EDT, Route to Pharmacy Electronically, [facility], Partial fill upon patient request if the prescriptio... Start Date: 03/13/23 Stop Date: 04/12/23 Status: Ordered duloxetine 20 mg oral enteric coated capsule 2 capsule = 40 mg, By Mouth, Daily at bedtime, # 60 capsule, 11 Refills, Maintenance, 06/25/21 12:00:00 EST, Capsule, [facility], Partial fill upon patient request if the prescription is for a schedule II opioid drug., 165, cm, 06/25/21 11:35:... Start Date: 06/25/21 Status: Ordered duloxetine 60 mg oral enteric coated capsule 1 capsule = 60 mg, By Mouth, Daily in AM, 0 Refills, Maintenance, 07/30/18 11:21:14 EST Start Date: 07/30/18 Status: Ordered Electric Hospital Bed and Mattress Electric Hospital Bed and Mattress, See Instructions, # 1 each, Refills 0, Tot. Refills 0, Maintenance, HT:160cm WT:109.5kg Dx:M48.061 CHF MARILYN: [facility], 11/12/23 14:05:00 EDT, Supply Start Date: 11/12/23 Status: Ordered Freestyle Lancets See Instructions, # [...] Replace Required Details, Route to Pharmacy Electronically, [facility], 160, cm, 07/07/23 15:02:00 EST, Height,... Start Date: 07/28/23 Status: Ordered furosemide 40 mg oral tablet 40 mg, 1, tablet, By Mouth, Daily, # 90 tablet, Refills 1, Tot. Refills 1, Maintenance, 03/02/23 18:12:00 EDT, Route to Pharmacy Electronically, [facility], Partial fill upon patient request if the prescription is for a schedule II opioid drug... Start Date: 03/02/23 Status: Ordered gabapentin 300 mg oral capsule See Instructions, TAKE ONE CAPSULE BY MOUTH THREE TIMES A DAY ^1R1,1R3,1R4, # 90 capsule, Refills 2, Maintenance, 11/20/23 16:26:00 EDT, Instructions Replace Required Details, Route to Pharmacy Electronically, [facility], 160, cm, 11/12/23 13:... Start Date: 11/20/23 Status: Ordered Hopsital bed Hopsital bed, See Instructions, # 1 each, Refills 0, Tot. Refills 0, Maintenance, dx M48.061 187.2 150.9 will need for life time, 08/19/23 12:06:00 EST, Supply Start Date: 08/19/23 Status: Ordered ipratropium nasal 21 mcg/inh spray See Instructions, INSTILL 2 SPRAYS IN EACH NOSTRIL TWO TIMES A DAY, # 30 mL, 11 Refills, Maintenance, 08/11/23 7:46:00 EST, [facility], 30, INSTILL 2 SPRAYS IN [...] tablet, Refills 5, Tot. Refills 5, Maintenance, 12/02/23 3:01:00 EDT, Route to Pharmacy Electronically, [facility], 160, cm, 11/12/23 13:36:00 EDT, Height, 112.4, kg, 06/24/23 17:38:00 EST, Dry Weight Start Date: 12/02/23 Status: Ordered metFORMIN 500 mg oral tablet 1 tablet = 500 mg, By Mouth, 2 times a day, # 60 tablet, 5 Refills, Maintenance, 01/03/24 15:26:00 EDT, Tablet, [facility], Partial fill upon patient request if the prescription is for a schedule II opioid drug., 160, cm, 11/12/23 13:36:00 EDT... Start Date: 01/03/24 Stop Date: 07/01/24 Status: Ordered metFORMIN 500 mg oral tablet 1 tablet = 500 mg, By Mouth, 2 times a day, for 30 days, # 60 tablet, 5 Refills, Hard Stop 01/02/2415:26:00 EDT, 07/07/23 15:26:00 EST, Tablet, [facility], Partial fill upon patient request if the prescription is for a schedule II opioid drug... Start Date: 07/07/23 Stop Date: 01/03/24 Status: Ordered nicotine 21 mg/24 hr transdermal film, extended release 1 patch, Topically, Daily, # 28 patch, 3 Refills, Maintenance, 09/14/23 15:41:00 EST, [facility], 28, APPLY 1 PATCH TOPICALLY DAILY, 160, cm, 07/07/23 15:02:00 EST, Height, 112.4, kg, 06/24/23 17:38:00 EST, Dry Weight Start Date: 09/14/23 Status: Ordered One Touch Ultra Plus Glucose [...] kg, ... Start Date: 07/30/23 Status: Ordered ONETOUCH DELICA PLUS 30G ONETOUCH DELICA PLUS 30G, See Instructions, # 200 each, 2 Refills, Maintenance, USE TO TEST BLOOD SUGAR TWO TIMES A DAY (BULK), 10/26/23 10:04:00 EDT, 160, cm, 10/16/23 10:41:00 EDT, Height, 112.4, kg, 06/24/23 17:38:00 EST, Dry Weight Start Date: 10/26/23 Status: Ordered penicillin V potassium 250 mg oral tablet 1 tablet, By Mouth, 2 times a day, ^1R1,1R4., # 60 tablet, 5 Refills, Maintenance, 08/19/23 10:06:00 EST, [facility], 160, cm, 07/07/23 15:02:00 EST, Height, 112.4, kg, 06/24/23 17:38:00 EST,Dry Weight Start Date: 08/19/23 Status: Ordered Rhinocort Allergy 32 mcg/inh nasal spray 2 sprays = 64 mcg, Nares, Both, Daily, # 8.43 mL, 5 Refills, Maintenance, 11/12/23 13:55:00 EDT, [place], [facility], Partial fill upon patient request if the prescription is for a schedule II opioid drug., 160, cm, 11/12/23 13:36:00 EDT, Height... Start Date: 11/12/23 Status: Ordered rOPINIRole 0.5 mg oral tablet 1 tablet, By Mouth, 3 times a day, ^1R1,1R3,1R4., # 90 tablet, 5 Refills, Maintenance, 10/11/23 20:09:00 EDT, [facility], 160, cm, 07/07/23 15:02:00 EST, Height, 112.4, kg, 06/24/23 17:38:00 EST, Dry Weight Start Date: 10/11/23 Status: Ordered rosuvastatin 10 mg oral tablet 1 tablet, By Mouth, Daily, ^1R1., # 30 tablet, 5 Refills, Maintenance, 12/02/23 3:01:00 EDT, [facility], [facility], cm, 11/12/23 13:36:00 EDT, Height, 112.4, kg, 06/24/23 17:38:00 EST, Dry Weight Start Date: 12/02/23 Status: Ordered Symbicort 160mcg/4.5mcg Inhaler 2, puffs, Inhalation, 2 times a day, # 10.2 Gm, Refills 11, Tot. Refills 11, Maintenance, 06/03/23 11:47:00 EST, Aerosol, Route to Pharmacy Electronically, [id number], [facility], 160, cm, 06/03/23 11:30:00 EST, Height, 98.8, kg, ... Start Date: 06/03/23 Status: Ordered tiZANidine 4 mg oral capsule 1 capsule = 4 mg, By Mouth, 3 times a day, PRN Spasm, can increae to 2 at a time if needed, # 90 capsule, 2 Refills, Maintenance, 11/12/23 14:03:00 EDT, Capsule, [facility], Partial fill uponpatient request if the prescription is for a schedu... Start Date: 11/12/23 Status: Ordered Walker with seat and breaks Walker with seat and breaks, See Instructions, # 1 each, Refills 0, Tot. Refills 0, Maintenance, HT:5'3 WT:241.6Lbs MARILYN:lifetime Dx:Z91.81(risk of fall), 09/28/23 9:21:00 EST, Supply Start Date: 09/28/23 Status: Ordered Xarelto 20 mg oral tablet 1 tablet, By Mouth, Daily in PM, ^1R4., # 30 tablet, 5 Refills, Maintenance, 10/26/23 10:04:00 EDT,[facility], 160, cm, 10/16/23 10:41:00 EDT, Height, 112.4, kg, 06/24/23 17:38:00 EST, Dry Weight Start Date: 10/26/23 Status: Ordered Problem List Condition Confirmation Course Effective Dates Status Health Status Informant Acute exacerbation of COPD with asthma Confirmed Active Arthritis of knee - bilateral Confirmed Active Bipolar disorder NOS Confirmed Active Overactive bladder Confirmed Active Epistaxis Confirmed Active Bursitis of right shoulder Confirmed [...] with hyperglycemia Confirmed Active Hyperparathyroidism Confirmed Active Low back pain Confirmed Active Lymphedema Confirmed Active Nausea Confirmed Active Severe obstructive sleep apnea-hypopnea syndrome Confirmed Active Paroxysmal atrial flutter Confirmed Active Prophylactic antibiotic - daily Pen VK for lymphedema , prevention of cellulitis Confirmed Active Pruritic rash Confirmed Active Pseudogout of knees Confirmed Active Pseudoseizures Confirmed Active PTSD - Post-traumatic stress disorder Confirmed Active Recurrent bacterial cystitis Confirmed Active Restless leg syndrome Confirmed Active Rhinitis Confirmed Active Sciatica Confirmed Active Scoliosis Confirmed 06/04/12 Active Encounter for screening colonoscopy Confirmed Active Severe obesity Confirmed Active Persistent moderate somatic symptom disorder with predominant pain Confirmed Active Spinal stenosis, lumbar Confirmed 06/04/12 Active Stasis dermatitis Confirmed Active Tension headache Confirmed Active Type 2 diabetes mellitus with peripheral neuropathy Confirmed Active UI (urinary incontinence) Confirmed Active 1Mild obstruction on PFT's September 2011 Social History Social History Type Response Smoking Status Current every day ruddy [employer]; Type: Cigarettes; Other: 1 pack daily; entered on: 04/19/18 Sex Female Hospital Consult note * Event Display: Inpatient Consult Note, Non- Authored Date: * Event Display: Inpatient Consult Note, Non- Authored Date: * Event Display: Inpatient Consult Note, Non- Authored Date: * Event Display: Inpatient Consult Note, Non- Authored Date: Laboratory * Event Display: Non Lab Results Authored Date: Cardiology * Event Display: Cardiology Office Note, Non-BH Authored Date: * Event Display: Cardiology Office Note, Non-BH Authored Date: * Event Display: Cardiology Office Note, Non-BH Authored Date: Radiology * Event Display: MRI Spine, Non- BH Authored Date: * Courtney Onofre: PERFORM Event Display: Radiology Results Scanned Authored Date: * Marley Goldsmith: PERFORM Event Display: Radiology Results Scanned Authored Date: * Tamie Mccormick: PERFORM Event Display: Radiology Results Scanned Authored Date: Note * Maxine Cuevas: PERFORM, SIGN, VERIFY Event Display: Patient Education/Instruction Authored Date: [facility] Juany Carr Clinical Summary Person Information Name FRANKLIN HARRISON Age 45 Years 1965 12:00 AM PCP Fuentes Garcia MD PCP Reason for Visit: Allergy Info: NKA [...] primary care provider, you may find a [facility] provider by calling [facility] Link at [phone]. Patient Education Information Follow-up Details: Patient Education Material: Patient Care team information Care Team Personnel Name: Sandra Wills NP Position: [facility] PCO Associate Professional Member Role: Primary Care Nurse Address: Address: [address] [place] [address] [place] [address]- Name: Marley Alejo RN Position: S RN Member Role: Primary Care Nurse Name: Rashi Dewitt RN Position: S RN Member Role: Primary Care Nurse Name: Alma Delia Fonseca PharmD Position: S Associate Professional Member Role: [facility] Consulting Provider Address: Address: [address] [facility] [place] [address]- [place] Name: Priscila Garzon RN Position: [facility] RN Member Role: Primary Care Nurse Name: Kyle Ahumada DO Position: [facility] Physician - Primary Care Member Role: PCP Address: Address: [address] [place] [address]- Name: Renea Mart RN Position: [facility] RN Member Role: Primary Care Nurse Care Team Related Persons Name: FAUZIA JANSEN Address: [address] [place] [address] Name: AURELIA SHETH Address: [address] [place] [address] Name: BRE OSORIO Address: [address] [place] [address]
--- OUTSIDE RECORDS SUMMARY | 2024-01-02 21:14 | XMS_ITS | Continuity of Care Document ---
Author Organization [facility] Robin Jane Nolberto lt Address [address] [place] [address]- Care Team Providers Care Deputy Program Manager Name Role Phone Radha GRIDER, Fuentes Kenny Primary Care Physician [phone] Encounter [facility] Date(s): 06/13/20 - 07/13/20 [facility] Adult [address] [place] [address]- Allergies, Adverse Reactions, Alerts Substance Reaction Severity [...] H1N1, inactive(oldterm) 8 05/08/11 Given 1Result Comment: [id number] 2Result Comment: [id number] 3Result Comment: [07/08/2017] [id number] 4Admin Note: [facility] 5Admin Note: [facility] [...] 5 Refills, Maintenance, 07/03/20 9:16:00 EST, Cream, [id number], Partial fill upon patient request if the [...] 06/04/20 12:56:00 EST, Route to Pharmacy Electronically, [facility] #[id number], please schedule appt for further refills, 165, cm, 05/16/20 14:15:00 EDT, Hei... Start Date: 06/04/20 Status: Ordered colchicine 0.6 mg oral tablet See Instructions, take 1 tablet by mouth once daily if needed for PSEUDOGOUT pain, # 30 tablet, Refills 5, Tot. Refills 5, Soft Stop, 01/05/20 8:41:00 EDT, Instructions Replace Required Details, Route to Pharmacy Electronically, [facility] #... Start Date: 01/05/20 Status: Ordered Disposable [...] Gm, 3 Refills, Maintenance, 06/22/20 14:58:00 EST, [facility] #[id number], 165, cm, 06/07/20 13:52:00 EST, Height, 127, [...] mL, 5 Refills, Maintenance, 10/01/18 10:08:42 EST, [facility], 2 sprays Nares, Both 2 times a [...] tablet, 1 Refills, Maintenance, 07/12/20 13:56:00 EST, [facility] #[id number], Partial fill upon patient request if the prescription is for a schedule II opioid drug., 165, cm, 07/11/20 15:24:00 EST,... Start Date: 07/12/20 Stop Date: 07/05/21 Status: Ordered metoprolol 25 mg oral tablet 25 mg, 1, tablet, By Mouth, 2 times a day, # 60 tablet, Refills 5, Tot. Refills 5, Maintenance, 03/22/20 16:34:00 EDT, Route to Pharmacy Electronically, [facility] #[id number], 165, cm, 02/02/2014:39:00 EDT, Height, 127, kg, [...] 0 Refills, Maintenance, 06/18/20 16:57:00 EST, Patch, [facility] #[id number], Partial fill upon patient request, 165, cm, 06/07/20 13:52:00 EST, Height, 127, kg, 02/03/20 14:39:00 EDT, Dry Weight Start Date: 06/18/20 Stop Date: 07/30/20 Status: Ordered NuLYTELY with Flavor Packs oral powder for reconstitution See Instructions, Drink 240mL every 15-20 minutes until first half is gone. Repeat 6 hours prior toprocedure., # 4,000 mL, 0 Refills, Maintenance, 06/28/20 17:09:00 EST, [facility] #[id number],Partial fill upon patient request if the prescript... Start Date: 06/28/20 Status: Ordered oxyCODONE 10 mg oral tablet 1 tablet = 10 mg, By Mouth, Every 8 hours, DX Z79.891 G89.29 M47.816 OK TO FILL LESS THAN PRESCRIBED AMOUNT, # 84 tablet, 0 Refills, Maintenance, 06/18/20 12:44:00 EST, Tablet, [facility] #[id number], 06/19/20, 165, cm, 06/07/20 13:52:00 EST, He... Start Date: 06/18/20 Stop Date: 07/16/20 Status: Ordered penicillin V potassium 250 mg [...] 5 Refills, Maintenance, 04/30/20 15:13:00 EDT, Tablet, [facility] #[id number], 165, cm, 04/30/20 14:30:00 EDT, Height, 127, kg, 02/03/20 14:39:00 EDT, Dry Weight Start Date: 04/30/20 Status: Ordered rosuvastatin 10 mg oral tablet 1 tablet = 10 mg, By Mouth, Daily, # 90 tablet, 3 Refills, Maintenance, 05/03/20 16:35:00 EDT, Tablet, [facility] #[id number], d/c rx for capsules, 165, cm, 04/30/20 14:30:00 EDT, Height, 127, kg, 02/03/20 14:39:00 EDT, Dry Weight Start Date: 05/03/20 Status: Ordered Ventolin HFA 108 mcg/inh inhalation aerosol with adapter 2 puffs, Inhalation, Every 4 hours, PRN Wheezing/Shortness of Breath, # 1 each, 11 Refills, Soft Stop, 01/19/20 11:46:00 EDT, [facility] #[id number], 165, cm, 01/16/20 6:17:00 EDT, Height, 128.1, kg, 01/16/20 6:17:00 EDT, Dry Weight Start Date: 01/19/20 Status: Ordered warfarin 5 mg oral tablet 1 tablet = 5 mg, By Mouth, Daily, dosing subject to change pending inr lab values, # 30 tablet, 5 Refills, Maintenance, 02/15/20 13:21:00 EDT, Tablet, [facility] #[id number], 165, cm, 02/03/20 14:39:00 EDT, Height, 127, [...] use(Confirmed) Active Gastric banding status(Confirmed) Active 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
--- OUTSIDE RECORDS SUMMARY | 2024-01-02 21:14 | XMS_ITS | Continuity of Care Document ---
Author Organization [facility] Robin Jane Nolberto Address [address] [place] [address]- Care Team Providers Care Certified Nuclear Medicine Technologist Name Role Phone Kyle Ahumada DO Primary Care Physician [phone] [place] [facility] [place]23 - 04/09/23 [facility] Robin Bolañosley Adult [address] [place] [address]- Encounter Diagnosis Bipolar disorder NOS(Discharge Diagnosis) - 04/01/23 Chronic obstructive pulmonary disease (COPD)(Discharge Diagnosis) - 04/01/23 Congestive heart failure(Discharge Diagnosis) - 04/01/23 Arthritis of knee - bilateral(Discharge Diagnosis) - 04/01/23 Paroxysmal atrial flutter(Discharge Diagnosis) - 04/01/23 Severe obstructive sleep apnea-hypopnea syndrome(Discharge Diagnosis) - 04/01/23 Type 2 diabetes mellitus with hyperglycemia(Discharge Diagnosis) - 04/01/23 Sciatica(Discharge Diagnosis) - 04/02/23 Attending Physician: Kyle Ahumada DO Allergies, Adverse [...] Give n influenza virus vaccine, inactivated 7 11/12/13 Gi octavio influenza virus vaccine, inactivated 04/09/11 Jarrett rded influenza virus vaccine, inactivated 03/18/10 Jarrett rded influenza virus vaccine, inactivated 04/21/09 Jarrett rded influenza virus vaccine, inactivated 06/19/08 Jarrett rded influenza virus vaccine, inactivated 05/10/07 Jarrett rded SARS-CoV-2 mRNA ([id number]) vax 08/30/21 Recorded SARS-CoV-2 (COVID-19) mRNA BNT-162b2 vac 01/02/21 Recorded SARS-CoV-2 (COVID-19) mRNA BNT-162b2 vac 12/02/20 Recorded Fluvirin (oldterm) 8 03/22/15 Given Fluzone Preservative-Free (oldterm) 9 03/12/12 Giv en pneumococcal 23-valent vaccine 10/08/11 Given tetanus/diphtheria/pertussis, acel(Tdap) 09/08/11 Given tetanus/diphtheria/pertussis, acel(Tdap) 12/17/06 Recorded influ virus vac, H1N1, inactive(oldterm) 10 05/08/11 Given hepatitis B adult vaccine 06/14/02 Recorded 1Result Comment: [id number] 2Result Comment: [id number] 3Result Comment: [id number] 4Result Comment: [id number] 5Result Comment: [07/08/2017] [id number] 6Admin Note: [facility] 7Admin Note: [facility] 04-08 8Admin Note: Given at [facility] 9Admin Note: 03-11-12 GIVEN AT [facility] 10Admin Note: rcvd elsewhere Medications acetaminophen 325 mg oral tablet 650 mg, 2, tablet, By Mouth, Every 6 hours, PRN, # 100 tablet, Refills 1, Tot. Refills 1, Maintenance, Pain , Moderate, 03/13/23 16:59:00 EDT, Route to Pharmacy Electronically, [facility], Partial fill upon patient request if the prescription... Start Date: 03/13/23 Status: Ordered Albuterol (Eqv-ProAir HFA) 90 mcg/inh inhalation aerosol See Instructions, INHALE 2 PUFFS BY MOUTH EVERY FOUR HOURS NEEDED FOR WHEEZING OR SHORTNESS OF BREATH, # 8.5 Gm, 5 Refills, Maintenance, 03/13/23 9:55:00 EDT, [facility], 30, INHALE 2 PUFFS [...] 03/12/23 15:30:00 EDT, Route to Pharmacy Electronically, [facility], 160, cm, 03/02/23 9:56:00 EDT, Height, 98.8, k... Start Date: 03/12/23 Status: Ordered cloNIDine 0.1 mg oral tablet 0.1 mg, 1, tablet, By Mouth, 2 times a day, PRN, # 60 tablet, Refills 2, Tot. Refills 2, Maintenance, Anxiety, 03/12/23 16:38:00 EDT, Route to Pharmacy Electronically, [facility], Partial fill upon patient request if the prescription is for a... Start Date: 03/12/23 Status: Ordered cyclobenzaprine 5 mg oral tablet 1 tablet = 5 mg, By Mouth, 3 times a day, PRN Spasm, can increase to 2 three time a day if needed, # 90 tablet, 2 Refills, Maintenance, 04/02/23 12:59:00 EDT, Tablet, [facility], Partial fillupon patient request if the prescription is for a s... Start Date: 04/02/23 Status: Ordered DilTIAZem (Eqv-Dilacor XR) 240 mg/24 hours oral capsule, extended release 1 capsule = 240 mg, By Mouth, Daily, # 90 capsule, 3 Refills, Maintenance, 03/13/23 17:04:00 EDT, [facility], Partial fill upon patient [...] 03/13/23 16:56:00 EDT, Route to Pharmacy Electronically, [facility], Partial fill upon patient request if [...] mL, 5 Refills, Maintenance, 03/13/23 16:58:00 EDT, [place], [facility], Partial fill upon patient request [...] 02/07/23 18:12:00 EDT, Route to Pharmacy Electronically, [facility], 160, cm, 12/16/22 10:46:00 [...] 3 Refills, Maintenance, 03/13/23 17:03:00 EDT, Patch, [facility], Partial fill upon patient request if the prescription is for a schedule II opioid drug., 1 patch Topically Daily, 160, cm, 03/02/23 9:56:0... Start Date: 03/13/23 Status: Ordered penicillin V potassium 250 mg oral tablet 1 tablet = 250 mg, By Mouth, 2 times a day, CELLULITIS PROPHYLAXIS, # 60 tablet, 5 Refills, Maintenance, 11/06/22 17:25:00 EDT, Tablet, [facility], Partial fill upon patient request if the prescription is for a schedule II opioid drug., 160, c... Start Date: 11/06/22 Stop Date: 05/05/23 Status: Ordered rOPINIRole 0.5 mg oral tablet 1 tablet, By Mouth, 3 times a day, ^1R1,1R3,1R4., # 90 tablet, 5 Refills, Maintenance, 12/24/22 14:21:00 EDT, [facility], 160, cm, 12/16/22 10:46:00 EDT, Height, 98.8, kg, 07/17/22 8:58:00 EST, Dry Weight Start Date: 12/24/22 Status: Ordered rosuvastatin 10 mg oral tablet 1 tablet, By Mouth, Daily, ^1R1., # 30 tablet, 5 Refills, Maintenance, 02/07/23 18:12:00 EDT, [facility], 160, cm, 12/16/22 10:46:00 EDT, Height, 98.8, kg, 07/17/22 8:58:00 EST, Dry Weight Start Date: 02/07/23 Status: Ordered Symbicort 80mcg/4.5mcg Inhaler See Instructions, INHALE 2 PUFFS BY MOUTH TWICE A DAY RINSE MOUTH AND THROAT AFTER USE, # 10.2 Gm, Refills 5, Tot. Refills 5, Maintenance, 03/13/23 10:13:00 EDT, Instructions Replace Required Details, [id number] Start Date: 03/13/23 Status: Ordered Xarelto 20 mg oral tablet 1 tablet = 20 mg, By Mouth, Daily at supper, # 90 tablet, 1 Refills, Maintenance, 03/02/23 18:12:00EDT, Tablet, [facility], pt was rx'd w diltiazem on [...] Confirmed Active Gastric banding status Confirmed Active longterm current use of opiate analgesic Confirmed Active [...] Service Informant Bipolar disorder NOS Discharge Diagnosis 04/01/23 Chronic obstructive pulmonary disease (COPD) Discharge Diagnosis 04/01/23 Congestive heart failure Discharge Diagnosis 04/01/23 Arthritis of knee - bilateral Discharge Diagnosis 04/01/23 Paroxysmal atrial flutter Discharge Diagnosis 04/01/23 Severe obstructive sleep apnea-hypopnea syndrome Discharge Diagnosis 04/01/23 Type 2 diabetes mellitus with hyperglycemia Discharge Diagnosis 04/01/23 Sciatica Discharge Diagnosis 04/02/23 Vital Signs Most recent to oldest [Reference Range]: 1 Height 160 cm (04/02/23 12:45 PM) Weight 112.8 kg (04/02/23 12:45 PM) Oxygen Saturation [94-100 %] 96 % (04/02/23 12:45 PM) Pulse Rate [55-90 bpm] 50 bpm *L* (04/02/23 12:45 PM) Body Mass Index [18.5-24.99 kg/m2] 44.06 kg/m2 *>HHI* (04/02/23 12:45 PM) Blood Pressure [90-138/55-84 mm Hg] 112/ 73mm Hg (04/02/23 12:45 PM) Temperature [96.8-100.4 DegF] 97.8 DegF (04/02/23 12:45 PM) Blood pressure sites Arm, left (04/02/23 12:45 PM) Social History Social History Type Response Smoking Status Current every day ruddy ayesha entered on: 05/04/18 Sex Female Patient Care team information Care Team Personnel Name: Sandra Wills NP Position: [facility] PCO Associate Professional Member Role: Primary Care Nurse Address: Address: [address] [place] [address] [place], [place] [address] Name: Marley Alejo RN Position: [facility] RN Member Role: Primary Care Nurse Name: Alma Delia Fonseca PharmD Position: [facility] Associate Professional Member Role: Lifetime Consulting Provider Address: Address: [address] [place] [address]- [place] Name: Yolis Mattson RN Position: [facility] RN Member Role: Primary Care Nurse Name: Priscila Garzon RN Position: [facility] RN Member Role: Primary Care Nurse Name: Kyle Ahumada DO Position: [facility] Physician - Primary Care Member Role: PCP Address: Address: [address] [place] [phone]- [place] Name: Renea Mart RN Position: [facility] RN Member Role: Primary Care Nurse Care Team Related Persons Name: AYDENYOHANNESFAUZIA Address: home [address] [place] [address] Name: AURELIA SHETH Address: home [address] [place] [address] Name: BRE OSORIO Address: [address] [place] [address]
--- OUTSIDE RECORDS SUMMARY | 2024-01-02 21:14 | XMS_ITS | Continuity of Care Document ---
Author Organization [facility] Buck Nolberto lt Address [address] [place] [address]- Care Team Providers Care Sales Marketing Coordinator Name Role Phone Radha GRIDER, Fuentes Kenny Primary Care Physician Encounter [facility] Date(s): 07/02/20 - 08/01/20 [facility] Adult [address] [place] [address]- Allergies, Adverse Reactions, Alerts Substance Reaction Severity [...] H1N1, inactive(oldterm) 8 05/08/11 Given 1Result Comment: [id number] 2Result Comment: [id number] 3Result Comment: [07/08/2017] [id number] 4Admin Note: [facility] 5Admin Note: [facility] [...] 5 Refills, Maintenance, 07/03/20 9:16:00 EST, Cream, [facility] #[id number], Partial fill upon patient request if the [...] 06/04/20 12:56:00 EST, Route to Pharmacy Electronically, [facility] #[id number], please schedule appt for further refills, 165, cm, 05/16/20 14:15:00 EDT, Hei... Start Date: 06/04/20 Status: Ordered colchicine 0.6 mg oral tablet See Instructions, take 1 tablet by mouth once daily if needed for PSEUDOGOUT pain, # 30 tablet, Refills 5, Tot. Refills 5, Soft Stop, 01/05/20 8:41:00 EDT, Instructions Replace Required Details, Route to Pharmacy Electronically, [facility] #... Start Date: 01/05/20 Status: Ordered [...] Gm, 3 Refills, Maintenance, 06/22/20 14:58:00 EST, [facility] #[id number], 165, cm, 06/07/20 13:52:00 EST, Height, 127, [...] mL, 5 Refills, Maintenance, 10/01/18 10:08:42 EST, [place], 2 sprays Nares, Both 2 times a [...] 09/29/20 14:57:00 EST, 07/31/20 14:57:00 EST, Capsule, [facility] #[id number], Partial fill upon patient request if the prescription is for a schedule II opi... Start Date: 07/31/20 Stop Date: 09/29/20 Status: Ordered methenamine hippurate 1 gm oral tablet 1 tablet = 1 Gm, By Mouth, 2 times a day, # 60 tablet, 1 Refills, Maintenance, 07/12/20 13:56:00 EST, [facility] #[id number], Partial fill upon patient request if the prescription is for a schedule II opioid drug., 165, cm, 07/11/20 15:24:00 EST,... Start Date: 07/12/20 Stop Date: 07/05/21 Status: Ordered metoprolol 25 mg oral tablet 25 mg, 1, tablet, By Mouth, 2 times a day, # 60 tablet, Refills 5, Tot. Refills 5, Maintenance, 03/22/20 16:34:00 EDT, Route to Pharmacy Electronically, [facility] #[id number], 165, cm, 02/02/2014:39:00 EDT, Height, 127, kg, [...] 0 Refills, Maintenance, 06/18/20 16:57:00 EST, Patch, [facility] #[id number], Partial fill upon patient request, 165, cm, 06/07/20 13:52:00 EST, Height, 127, kg, 02/03/20 14:39:00 EDT, Dry Weight Start Date: 06/18/20 Stop Date: 07/30/20 Status: Ordered NuLYTELY with Flavor Packs oral powder for reconstitution See Instructions, Drink 240mL every 15-20 minutes until first half is gone. Repeat 6 hours prior toprocedure., # 4,000 mL, 0 Refills, Maintenance, 06/28/20 17:09:00 EST, [facility] #[id number],Partial fill upon patient request if the prescript... Start Date: 06/28/20 Status: Ordered oxyCODONE 10 mg oral tablet 1 tablet = 10 mg, By Mouth, Every 8 hours, DX Z79.891 G89.29 M47.816 OK TO FILL LESS THAN PRESCRIBED AMOUNT, # 84 tablet, 0 Refills, Maintenance, 07/16/20 17:18:00 EST, Tablet, [facility] #[id number], 07/17/20, 165, cm, 07/11/20 15:24:00 EST, He... [...] 5 Refills, Maintenance, 04/30/20 15:13:00 EDT, Tablet, [facility] #[id number], 165, cm, 04/30/20 14:30:00 EDT, Height, 127, kg, 02/03/20 14:39:00 EDT, Dry Weight Start Date: 04/30/20 Status: Ordered rosuvastatin 10 mg oral tablet 1 tablet = 10 mg, By Mouth, Daily, # 90 tablet, 3 Refills, Maintenance, 05/03/20 16:35:00 EDT, Tablet, [facility] #56607, d/c rx for capsules, 165, cm, 04/30/20 14:30:00 EDT, Height, 127, kg, 02/03/20 14:39:00 EDT, Dry Weight Start Date: 05/03/20 Status: Ordered Ventolin HFA 108 mcg/inh inhalation aerosol with adapter 2 puffs, Inhalation, Every 4 hours, PRN Wheezing/Shortness of Breath, # 1 each, 11 Refills, Soft Stop, 01/19/20 11:46:00 EDT, [facility] #[id number], 165, cm, 01/16/20 6:17:00 EDT, Height, 128.1, kg, 01/16/20 6:17:00 EDT, Dry Weight Start Date: 01/19/20 Status: Ordered warfarin 5 mg oral tablet 1 tablet = 5 mg, By Mouth, Daily, dosing subject to change pending inr lab values, # 30 tablet, 5 Refills, Maintenance, 02/15/20 13:21:00 EDT, Tablet, [facility] #[id number], 165, cm, 02/03/20 14:39:00 EDT, Height, 127, [...] use(Confirmed) Active Gastric banding status(Confirmed) Active 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
--- OUTSIDE RECORDS SUMMARY | 2024-01-02 21:14 | XMS_ITS | Continuity of Care Document ---
Author Organization [facility] Robin Jane Nolberto lt Address [address] [place] [address]- Care Team Providers Care Spare Parts Clerk Name Role Phone Radha GRIDER, Fuentes Kenny Primary Care Physician [phone] Encounter [facility] Date(s): 07/11/20 - 08/10/20 [facility] Adult [address] [place] [address]- Allergies, Adverse Reactions, Alerts Substance Reaction Severity [...] H1N1, inactive(oldterm) 8 05/08/11 Given 1Result Comment: [id number] 2Result Comment: [id number] 3Result Comment: [07/08/2017] [id number] 4Admin Note: [facility] 5Admin Note: [facility] [...] 5 Refills, Maintenance, 07/03/20 9:16:00 EST, Cream, [facility] #[id number], Partial fill upon patient request if the [...] 06/04/20 12:56:00 EST, Route to Pharmacy Electronically, [facility] #[id number], please schedule appt for further refills, 165, cm, 05/16/20 14:15:00 EDT, Hei... Start Date: 06/04/20 Status: Ordered Claritin 10 mg oral tablet 10 mg, 1, tablet, By Mouth, Daily, for 90 days, # 90 tablet, Refills 3, Tot. Refills 3, Acute 07/28/21 15:22:00 EST, 08/02/20 15:22:00 EST, Route to Pharmacy Electronically, [facility] #[id number], 165, cm, 07/31/20 14:32:00 EST, Height, 127, kg,... Start Date: 08/02/20 Stop Date: 07/28/21 Status: Ordered colchicine 0.6 mg oral tablet See Instructions, take 1 tablet by mouth once daily if needed for PSEUDOGOUT pain, # 30 tablet, Refills 5, Tot. Refills 5, Soft Stop, 01/05/20 8:41:00 EDT, Instructions Replace Required Details, Route to Pharmacy Electronically, [facility] #... Start Date: 01/05/20 Status: Ordered Disposable [...] Gm, 3 Refills, Maintenance, 06/22/20 14:58:00 EST, [facility] #[id number], 165, cm, 06/07/20 13:52:00 EST, Height, 127, [...] mL, 5 Refills, Maintenance, 10/01/18 10:08:42 EST, [place], 2 sprays Nares, Both 2 times a [...] 08/02/20 16:13:00 EST, Route to Pharmacy Electronically, [facility] #[id number], D/C RX ON FILE FOR ABRAM, 165, [...] 09/29/20 14:57:00 EST, 07/31/20 14:57:00 EST, Capsule, [facility] #[id number], Partial fill upon patient request if the prescription is for a schedule II opi... Start Date: 07/31/20 Stop Date: 09/29/20 Status: Ordered methenamine hippurate 1 gm oral tablet 1 tablet = 1 Gm, By Mouth, 2 times a day, # 60 tablet, 1 Refills, Maintenance, 07/12/20 13:56:00 EST, [facility] #[id number], Partial fill upon patient request if the prescription is for a schedule II opioid drug., 165, cm, 07/11/20 15:24:00 EST,... Start Date: 07/12/20 Stop Date: 07/05/21 Status: Ordered metoprolol 25 mg oral tablet 25 mg, 1, tablet, By Mouth, 2 times a day, # 60 tablet, Refills 5, Tot. Refills 5, Maintenance, 03/22/20 16:34:00 EDT, Route to Pharmacy Electronically, [facility] #[id number], 165, cm, 02/02/2014:39:00 EDT, Height, 127, kg, [...] 0 Refills, Maintenance, 06/18/20 16:57:00 EST, Patch, [facility] #[id number], Partial fill upon patient request, 165, cm, 06/07/20 13:52:00 EST, Height, 127, kg, 02/03/20 14:39:00 EDT, Dry Weight Start Date: 06/18/20 Stop Date: 07/30/20 Status: Ordered NuLYTELY with Flavor Packs oral powder for reconstitution See Instructions, Drink 240mL every 15-20 minutes until first half is gone. Repeat 6 hours prior toprocedure., # 4,000 mL, 0 Refills, Maintenance, 06/28/20 17:09:00 EST, [facility] #[id number],Partial fill upon patient request if the prescript... Start Date: 06/28/20 Status: Ordered oxyCODONE 10 mg oral tablet 1 tablet = 10 mg, By Mouth, Every 8 hours, DX Z79.891 G89.29 M47.816 OK TO FILL LESS THAN PRESCRIBED AMOUNT, # 84 tablet, 0 Refills, Maintenance, 07/16/20 17:18:00 EST, Tablet, [facility] #[id number], 07/17/20, 165, cm, 07/11/20 15:24:00 EST, He... [...] 5 Refills, Maintenance, 04/30/20 15:13:00 EDT, Tablet, [facility] #[id number], 165, cm, 04/30/20 14:30:00 EDT, Height, 127, kg, 02/03/20 14:39:00 EDT, Dry Weight Start Date: 04/30/20 Status: Ordered rosuvastatin 10 mg oral tablet 1 tablet = 10 mg, By Mouth, Daily, # 90 tablet, 3 Refills, Maintenance, 05/03/20 16:35:00 EDT, Tablet, [facility] #[id number], d/c rx for capsules, 165, cm, 04/30/20 14:30:00 EDT, Height, 127, kg, 02/03/20 14:39:00 EDT, Dry Weight Start Date: 05/03/20 Status: Ordered Ventolin HFA 108 mcg/inh inhalation aerosol with adapter 2 puffs, Inhalation, Every 4 hours, PRN Wheezing/Shortness of Breath, # 1 each, 11 Refills, Soft Stop, 01/19/20 11:46:00 EDT, [facility] #[id number], 165, cm, 01/16/20 6:17:00 EDT, Height, 128.1, kg, 01/16/20 6:17:00 EDT, Dry Weight Start Date: 01/19/20 Status: Ordered warfarin 5 mg oral tablet 1 tablet = 5 mg, By Mouth, Daily, dosing subject to change pending inr lab values, # 30 tablet, 5 Refills, Maintenance, 02/15/20 13:21:00 EDT, Tablet, [facility] #91509, 165, cm, 02/03/20 14:39:00 EDT, Height, 127, [...] long-term use(Confirmed) Active Gastric banding status(Confirmed) Active group home current use of 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
--- OUTSIDE RECORDS SUMMARY | 2024-01-02 21:14 | XMS_ITS | Continuity of Care Document ---
Author Organization [facility] Buck Nolberto Address [address] [place] [address]- Care Team Providers Care Receptionist Name Role Phone Krishan GRIDER, Eulogio Molina Primary Care Physician [phone] [facility]counter [facility] Date[facility]s): 11/08/21 - 12/08/21 [facility] Adult [address] [place] [address]- Allergies, Adverse Reactions, Alerts Substance Reaction Severity Status Adhesive Bandage Active Dust copd exac/sinus congestion A ctive Immunizations Given and Recorded Vaccine Date Status Refusal Reason SARS-CoV-2 mRNA ([id number]) vax 08/30/21 Recorded influenza virus vaccine, inactivated [...] B adult vaccine 06/14/02 Recorded 1Result Comment: [id number] 2Result Comment: [id number] 3Result Comment: [id number] 4Result Comment: [07/08/2017] 15041-756-14 5Admin Note: [facility] 6Admin Note: [facility] - 7Admin Note: Given at [facility] 8Admin Note: [...] 8.5 Gm, 5 Refills, 05/29/21 17:13:00 EDT, [id number], 17, INHALE 2 PUFFS BY MOUTH EVERY 4 HOURS NEEDED FOR WHEEZING OR SHORTNE... Start Date: 05/29/21 Status: Ordered calcipotriene 0.005% topical cream 1 application, Topically, 2 times a day, # 60 Gm, 11 Refills, Maintenance, 11/15/21 11:54:00 EDT, Cream, [facility], Partial fill upon patient request if the prescription is for a schedule IIopioid drug., 1 application Topically 2 times a day... Start Date: 11/15/21 Status: Ordered colchicine 0.6 mg oral tablet 0.6 mg, 1, tablet, By Mouth, Daily, # 30 tablet, Refills 11, Tot. Refills 11, Maintenance, :00:00 EDT, Route to Pharmacy Electronically, [facility], Partial fill upon patient request if the prescription is for a schedule II opioid drTorey.. Start Date: 10/30/21 Status: Ordered cyclobenzaprine 10 mg oral tablet See Instructions, PRN, 1 tablet By Mouth 3 times a day as needed, # 20 tablet, Refills 0, Tot. Refills 0, Maintenance, for spasm, 11/08/21 10:23:00 EDT, Instructions Replace Required Details, Route to Pharmacy Electronically, [facility][id number]... Start Date: 11/08/21 Status: Ordered digoxin 0.125 mg oral tablet 125 mcg, 1, tablet, By Mouth, Daily, # 30 tablet, Refills 0, Tot. Refills 0, Maintenance, 12/03/21 17:34:00 EDT, Do Not Route, Partial fill upon patient request if the prescription is for a schedule II opioid drug. Start Date: 12/03/21 Status: Ordered duloxetine 20 mg oral enteric coated capsule 2 capsule = 40 mg, By Mouth, Daily at bedtime, # 60 capsule, 11 Refills, Maintenance, 06/25/21 12:00:00 EST, [facility], Partial fill upon patient request if the prescription is for a schedule II opioid drug., 165, cm, 06/25/21 11:35:... Start Date: 06/25/21 Status: Ordered duloxetine 60 mg oral enteric coated capsule 1 capsule = 60 mg, By Mouth, Daily in AM, 0 Refills, Maintenance, 07/30/18 11:21:14 EST Start Date: 07/30/18 Status: Ordered gabapentin 600 mg oral tablet 1 tablet = 600 mg, By Mouth, 3 times a day, Increase in dose, # 90 tablet, 5 Refills, Maintenance, 11/18/21 13:49:00 EDT, [facility], [facility], Partial fill upon patient request if the prescription is for a schedule II opioid drug., 165, cm, ... Start Date: 11/18/21 Status: Ordered lamotrigine 200 mg oral tablet 1 tablet = 200 mg, By Mouth, Daily at bedtime, 0 Refills, Maintenance, 02/19/18 15:03:43 EDT Start Date: 02/19/18 Status: Ordered loratadine 10 mg oral tablet See Instructions, TAKE 1 TABLET BY MOUTH ONCE A DAY, # 90 tablet, Refills 1, Instructions Replace Required Details, Route to Pharmacy Electronically, [facility], 165, cm, 06/25/21 11:35:00 EST, Height, 127, kg, 02/03/20 14:39:00 EDT, Dry Weight Start Date: 08/05/21 Status: Ordered metoprolol 100 mg oral tablet, extended release 100 mg, 1, tablet, By Mouth, Daily, # 30 tablet, Refills 0, Tot. Refills 0, Maintenance, 12/03/21 17:34:00 EDT, Do Not Route, Partial fill upon patient request if the prescription is for a schedule II opioid drug. Start Date: 12/03/21 Status: Ordered nicotine 4 mg oral transmucosal gum 1 each = 4 mg, Chew, Every 2 hours, PRN as needed for smoking cessation, # 160 each, 2 Refills, Acute 03/05/22 16:36:00 EDT, 12/03/21 16:35:00 EDT, Gum, [facility] #[id number], Partial fill uponpatient request if the prescription is for a schedu... Start Date: 12/03/21 Stop Date: 03/05/22 Status: Ordered NuLYTELY with Flavor Packs oral powder for reconstitution 240 mL, By Mouth, Every 10 minutes, # 1 each, 0 Refills, Maintenance, 10/25/21 10:39:00 EDT, REC Powder, [facility], Partial fill upon patient request if the prescription is for a schedule IIopioid drug., 240 mL By Mouth Every 10 minutes, 165... Start Date: 10/25/21 Status: Ordered penicillin V potassium 250 mg oral tablet 1 tablet, By Mouth, 2 times a day, CELLULITIS PROPHYLAXIS., # 60 tablet, 6 Refills, [facility], 165, cm, 11/08/21 10:02:00 EDT, Height, 127, kg, 02/03/20 14:39:00 EDT, Dry Weight Start Date: 11/15/21 Status: Ordered rOPINIRole 0.5 mg oral tablet 1 tablet, By Mouth, 3 times a day, # 90 tablet, 5 Refills, 11/08/21 9:01:00 EDT, [facility], 165, cm, 11/04/21 8:42:00 EDT, Height, 127, kg, 02/03/20 14:39:00 EDT, Dry Weight Start Date: 11/08/21 Status: Ordered rosuvastatin 10 mg oral tablet See Instructions, TAKE 1 TABLET BY MOUTH DAILY, # 90 tablet, 1 Refills, Maintenance, 10/18/21 21:30:00 EDT, [facility], 165, cm, 09/04/21 14:01:00 EST, Height, 127, kg, 02/03/20 14:39:00 EDT,Dry Weight Start Date: 10/18/21 Status: Ordered warfarin 2.5 mg oral tablet See Instructions, Dosing Subject To Change per INR Result per MD, # 30 each, 6 Refills, Maintenance, 06/12/21 17:09:00 EST, Tablet, [facility], Dosing Subject To Change per INR Result per MD,165, cm, 05/21/21 10:54:00 EDT, Height, 127, kg, 07... 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
--- OUTSIDE RECORDS SUMMARY | 2024-01-02 21:14 | XMS_ITS | Continuity of Care Document ---
Author Organization [facility] Buck Nolberto lt Address [address] [place] [address]- Care Team Providers Care Slab Conditioner Supervisor Name Role Phone Radha GRIDER, Fuentes Kenny Primary Care Physician [facility] 08[facility]20 - 09/13/20 [facility] Adult [address] [place] [address]- Allergies, Adverse Reactions, Alerts Substance Reaction Severity [...] H1N1, inactive(oldterm) 8 05/08/11 Given 1Result Comment: [id number] 2Result Comment: [id number] 3Result Comment: [07/08/2017] 47002-755-55 4Admin Note: [facility] 5Admin Note: [facility] [...] 5 Refills, Maintenance, 07/03/20 9:16:00 EST, Cream, [facility] #[id number], Partial fill upon patient request if the [...] 06/04/20 12:56:00 EST, Route to Pharmacy Electronically, [facility] #[id number], please schedule appt for further refills, 165, cm, 05/16/20 14:15:00 EDT, Hei... Start Date: 06/04/20 Status: Ordered Claritin 10 mg oral tablet 10 mg, 1, tablet, By Mouth, Daily, for 90 days, # 90 tablet, Refills 3, Tot. Refills 3, Acute 07/28/21 15:22:00 EST, 08/02/20 15:22:00 EST, Route to Pharmacy Electronically, [facility] #[id number], 165, cm, 07/31/20 14:32:00 EST, Height, 127, kg,... Start Date: 08/02/20 Stop Date: 07/28/21 Status: Ordered colchicine 0.6 mg oral tablet See Instructions, take 1 tablet by mouth once daily if needed for PSEUDOGOUT pain, # 30 tablet, Refills 5, Tot. Refills 5, Soft Stop, 01/05/20 8:41:00 EDT, Instructions Replace Required Details, Route to Pharmacy Electronically, [facility] #... Start Date: 01/05/20 Status: Ordered Disposable [...] Gm, 3 Refills, Maintenance, 06/22/20 14:58:00 EST, [facility] #[id number], 165, cm, 06/07/20 13:52:00 EST, Height, 127, [...] mL, 5 Refills, Maintenance, 10/01/18 10:08:42 EST, [place], 2 sprays Nares, Both 2 times a [...] 08/02/20 16:13:00 EST, Route to Pharmacy Electronically, [facility] #[id number], D/C RX ON FILE FOR ABRAM, 165, [...] 09/29/20 14:57:00 EST, 07/31/20 14:57:00 EST, Capsule, [facility] #[id number], Partial fill upon patient request if the prescription is for a schedule II opi... Start Date: 07/31/20 Stop Date: 09/29/20 Status: Ordered methenamine hippurate 1 gm oral tablet 1 tablet = 1 Gm, By Mouth, 2 times a day, # 60 tablet, 1 Refills, Maintenance, 07/12/20 13:56:00 EST, [facility] #[id number], Partial fill upon patient request if the prescription is for a schedule II opioid drug., 165, cm, 07/11/20 15:24:00 EST,... Start Date: 07/12/20 Stop Date: 07/05/21 Status: Ordered metoprolol 25 mg oral tablet 25 mg, 1, tablet, By Mouth, 2 times a day, # 60 tablet, Refills 5, Tot. Refills 5, Maintenance, 03/22/20 16:34:00 EDT, Route to Pharmacy Electronically, [facility] #[id number], 165, cm, 02/02/2014:39:00 EDT, Height, 127, kg, [...] 0 Refills, Maintenance, 06/18/20 16:57:00 EST, Patch, [facility] #[id number], Partial fill upon patient request, 165, cm, 06/07/20 13:52:00 EST, Height, 127, kg, 02/03/20 14:39:00 EDT, Dry Weight Start Date: 06/18/20 Stop Date: 07/30/20 Status: Ordered NuLYTELY with Flavor Packs oral powder for reconstitution See Instructions, Drink 240mL every 15-20 minutes until first half is gone. Repeat 6 hours prior toprocedure., # 4,000 mL, 0 Refills, Maintenance, 06/28/20 17:09:00 EST, [facility] #[id number],Partial fill upon patient request if the prescript... Start Date: 06/28/20 Status: Ordered oxyCODONE 10 mg oral tablet 1 tablet = 10 mg, By Mouth, Every 8 hours, DX Z79.891 G89.29 M47.816 OK TO FILL LESS THAN PRESCRIBED AMOUNT, # 84 tablet, 0 Refills, Maintenance, 09/10/20 17:26:00 EST, Tablet, [facility] #[id number], 09/11/20, 165, cm, 07/31/20 14:32:00 EST, He... Start Date: 09/10/20 Stop Date: 10/08/20 Status: Ordered penicillin V potassium 250 mg [...] 5 Refills, Maintenance, 04/30/20 15:13:00 EDT, Tablet, [facility] #[id number], 165, cm, 04/30/20 14:30:00 EDT, Height, 127, kg, 02/03/20 14:39:00 EDT, Dry Weight Start Date: 04/30/20 Status: Ordered rosuvastatin 10 mg oral tablet 1 tablet = 10 mg, By Mouth, Daily, # 90 tablet, 3 Refills, Maintenance, 05/03/20 16:35:00 EDT, Tablet, [facility] #[id number], d/c rx for capsules, 165, cm, 04/30/20 14:30:00 EDT, Height, 127, kg, 02/03/20 14:39:00 EDT, Dry Weight Start Date: 05/03/20 Status: Ordered Ventolin HFA 108 mcg/inh inhalation aerosol with adapter 2 puffs, Inhalation, Every 4 hours, PRN Wheezing/Shortness of Breath, # 1 each, 11 Refills, Soft Stop, 01/19/20 11:46:00 EDT, [facility] #[id number], 165, cm, 01/16/20 6:17:00 EDT, Height, 128.1, kg, 01/16/20 6:17:00 EDT, Dry Weight Start Date: 01/19/20 Status: Ordered warfarin 5 mg oral tablet 1 tablet = 5 mg, By Mouth, Daily, dosing subject to change pending inr lab values, # 30 tablet, 11 Refills, Maintenance, 08/31/20 15:36:00 EST, Tablet, [facility] #[id number], 165, cm, 07/31/20 14:32:00 EST, Height, 127, [...] long-term use(Confirmed) Active Gastric banding status(Confirmed) Active [facility] current use of 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
--- OUTSIDE RECORDS SUMMARY | 2024-01-02 21:14 | XMS_ITS | Continuity of Care Document ---
Author Organization [facility] Robin Jane Nolberto Address [address] [place] [address]- Care Team Providers Care Pilot Supervisor Name Role Phone Fuentes Garcia MD Primary Care Physician [phone] [facility] Date(s): 05/15/21 - 06/14/21 [facility] Robin Bolañosley Adult [address] [place] [address]- Allergies, Adverse Reactions, Alerts Substance Reaction Severity Status Adhesive Bandage Active Dust copd exac/sinus congestion A ctive Immunizations Given and Recorded Vaccine Date Status Refusal Reason SARS-CoV-2 (COVID-19) mRNA BNT-162b2 vac 01/02/21 Recorded SARS-CoV-2 (COVID-19) mRNA BNT-162b2 vac 12/02/20 Recorded influenza virus vaccine, inactivated 1 04/30/20 Gi octavio influenza virus vaccine, inactivated 2 05/23/19 Gi octavio influenza virus vaccine, inactivated 04/27/18 Give n influenza virus vaccine, inactivated 3 07/08/17 Gi octavio influenza virus vaccine, inactivated 4 04/01/17 Gi octavio influenza virus vaccine, inactivated 08/12/16 Jarrett rded influenza virus vaccine, inactivated 05/23/14 Give n influenza virus vaccine, inactivated 5 06/07/13 Gi octavio influenza virus vaccine, inactivated 04/09/11 Jarrett rded influenza virus vaccine, inactivated 03/18/10 Jarrett rded influenza virus vaccine, inactivated 04/21/09 Jarrett rded influenza virus vaccine, inactivated 06/19/08 Jarrett rded influenza virus vaccine, inactivated 05/10/07 Jarrett rded Fluvirin (oldterm) 6 03/22/15 Given Fluzone Preservative-Free (oldterm) 7 03/12/12 Giv en pneumococcal 23-valent vaccine 10/08/11 Given tetanus/diphtheria/pertussis, acel(Tdap) 09/08/11 Given tetanus/diphtheria/pertussis, acel(Tdap) 12/17/06 Recorded influ virus vac, H1N1, inactive(oldterm) 8 05/08/11 Given hepatitis B adult vaccine 06/14/02 Recorded 1Result Comment: [id number] 2Result Comment: [id number] 3Result Comment: [07/08/2017] [id number] 4Admin Note: [facility] 5Admin Note: [facility] [...] 8.5 Gm, 5 Refills, 05/29/21 17:13:00 EDT, [facility] #[id number], 17, INHALE 2 PUFFS BY MOUTH EVERY [...] 11 Refills, Maintenance, 10/31/20 14:14:00 EDT, Cream, [facility] #[id number], Partial fill upon patient request if the [...] tablet, Refills 0, Tot. Refills 0, Maintenance, 04/09/21 14:32:00 EDT, Route to Pharmacy Electronically, [facility], 165, cm, 02/28/21 14:22:00 EDT, Height, 127, kg, 02/03/20 14:39:00 EDT, Dry Weight Start Date: 04/09/21 Status: Ordered COVID 19 vaccine COVID 19 [...] PMR, history of smoking fax to : [phone], 04... Start Date: 10/26/20 Status: Ordered Disposable [...] Gm, 3 Refills, Maintenance, 06/22/20 14:58:00 EST, [facility] #[id number], 165, cm, 06/07/20 13:52:00 EST, Height, 127, [...] Refills, Maintenance, 05/24/21 16:13:00 EDT, REC Powder, [facility] #[id number], Partial fill upon patient request if the [...] mL, 5 Refills, Maintenance, 10/01/18 10:08:42 EST, [place], 2 sprays Nares, Both 2 times a [...] 08/02/20 16:13:00 EST, Route to Pharmacy Electronically, [facility] #[id number], D/C RX ON FILE FOR [place], 165, [...] tablet, 6Refills, Maintenance, 05/21/21 11:19:00 EDT, Tablet, [facility], Partial fill upon patient request if the prescription is for a schedule II... Start Date: 05/21/21 Status: Ordered methenamine hippurate 1 gm oral tablet 1 tablet = 1 Gm, By Mouth, 2 times a day, # 60 tablet, 11 Refills, Maintenance, 07/05/21 14:00:00 EST, [facility], Partial fill upon patient request if the prescription is for a schedule II opioid drug., 165, cm, 02/28/21 14:22:00 EDT, Height,... Start Date: 07/05/21 Status: Ordered methenamine hippurate 1 gm oral tablet 1 tablet = 1 Gm, By Mouth, 2 times a day, # 60 tablet, 1 Refills, Hard Stop 07/05/21 14:00:00 EST, 07/12/20 13:56:00 EST, [facility] #[id number], Partial fill upon patient request if the prescription is for a schedule II opioid drug., 165, cm, 12... Start Date: 07/12/20 Stop Date: 07/05/21 Status: Ordered Metoprolol Tartrate 25 mg oral tablet 1 tablet, By Mouth, 2 times a day, # 60 tablet, 2 Refills, Maintenance, 03/07/21 10:08:00 EDT, [facility] #[id number], 165, cm, 02/28/21 14:22:00 EDT, Height, 127, kg, 02/03/20 14:39:00 EDT, DryWeight Start Date: 03/07/21 Status: Ordered Mitigare 0.6 mg oral capsule 1 capsule, By Mouth, Daily, # 30 capsule, 11 Refills, Maintenance, 12/31/20 16:51:00 EDT, [facility] #[id number], 165, cm, 11/19/20 11:32:00 EDT, Height, 127, [...] 0 Refills, Maintenance, 04/11/21 9:00:00 EDT, Patch, [facility], Partial fill upon patient request, 165, cm, 02/28/21 14:22:00 EDT, Height, 127, kg, 02/03/20 14:39:00 EDT, Dry Weight Start Date: 04/11/21 Stop Date: 05/23/21 Status: Ordered NuLYTELY with Flavor Packs oral powder for reconstitution See Instructions, Drink 240mL every 15-20 minutes until first half is gone. Repeat 6 hours prior toprocedure., # 4,000 mL, 0 Refills, Maintenance, 06/28/20 17:09:00 EST, [facility] #[id number],Partial fill upon patient request if the prescript... Start Date: 06/28/20 Status: Ordered oxyCODONE 10 mg oral tablet 1 tablet = 10 mg, By Mouth, Every 8 hours, DX Z79.891 G89.29 M47.816 OK TO FILL LESS THAN PRESCRIBED AMOUNT, # 84 tablet, 0 Refills, Maintenance, 06/13/21 17:00:00 EST, Tablet, [facility] #[id number], 06/18/21, 165, cm, 05/21/21 10:54:00 EDT, He... Start Date: 06/13/21 Stop Date: 07/11/21 Status: Ordered oxyCODONE 5 mg oral tablet 10 mg, 2, tablet, By Mouth, Every 8 hours, DX Z79.891 G89.29 M47.816 OK TO FILL LESS THAN PRESCRIBED AMOUNT, # 168 tablet, Refills 0, Tot. Refills 0, Maintenance, 03/25/21 16:45:00 EDT, Route to Pharmacy Electronically, [facility] #[id number], D... Start Date: 03/25/21 Stop Date: 04/22/21 Status: Ordered penicillin V potassium 250 mg oral tablet 1 tablet = 250 mg, By Mouth, 2 times a day, Cellulitis prophylaxis, # 60 tablet, 11 Refills, Maintenance, 10/30/20 12:09:00 EDT, [facility] #[id number], 165, cm, 10/19/20 8:59:00 EDT, Height, 127, kg, 02/03/20 14:39:00 EDT, Dry Weight Start Date: 10/30/20 Status: Ordered predniSONE 5 mg oral tablet 1 tablet = 5 mg, By Mouth, Daily, # 30 tablet, 0 Refills, Maintenance, 01/11/21 14:20:00 EDT, Tablet, [facility] #[id number], Partial fill upon patient request if the prescription is for a schedule II opioid drug., 165, cm, 01/11/21 14:05:00 EDT,... Start Date: 01/11/21 Status: Ordered PULL UPS PULL UPS, See [...] a day, # 90 tablet, 0 Refills, [facility], 165, cm, 05/21/21 10:54:00 EDT, Height, 127, kg, 02/03/20 14:39:00 EDT, Dry Weight Start Date: 06/11/21 Status: Ordered rosuvastatin 10 mg oral tablet 1 tablet = 10 mg, By Mouth, Daily, # 90 tablet, 1 Refills, Maintenance, 05/20/21 15:53:00 EDT, Tablet, [facility], d/c rx for capsules, 165, cm, 02/28/21 14:22:00 EDT, Height, 127, kg, 02/03/20 14:39:00 EDT, Dry Weight Start Date: 05/20/21 Status: Ordered Trulicity Pen 0.75 mg/0.5 mL subcutaneous solution 0.5 mL = 0.75 mg, Subcutaneous Injection, Every week, take on same day every week, rotate injectionsites E11.9, # 2 mL, 1 Refills, Maintenance, 05/21/21 11:18:00 EDT, Solution, [facility] #[id number], Partial fill upon patient request if the... Start Date: 05/21/21 Status: Ordered warfarin 2.5 mg oral tablet See Instructions, Dosing Subject To Change per INR Result per MD, # 30 each, 6 Refills, Maintenance, 06/12/21 17:09:00 EST, Tablet, [facility], Dosing Subject To Change per INR Result per MD,165, cm, 05/21/21 10:54:00 EDT, Height, 127, kg, 07... 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
--- OUTSIDE RECORDS SUMMARY | 2024-01-02 21:14 | XMS_ITS | Continuity of Care Document ---
Author Organization [facility] [place] [address] [place] [address]- Care Team Providers Care Bomb Squad Commander Name Role Phone Fuentes Garcia MD Primary Care Physician [phone] Encounter 03/21/20 - 03/28/20 [facility] [address], [facility] [address] [place] [address]- [phone] Attending Physician: Fuentes Garcia MD Admitting Physician: Fuentes Garcia MD Referring Physician: Fuentes Garcia MD Allergies, [...] H1N1, inactive(oldterm) 7 05/08/11 Given 1Result Comment: [id number] 2Result Comment: [07/08/2017] [id number] 3Admin Note: [facility] 4Admin Note: [facility] [...] 12/06/19 9:16:00 EDT, Route to Pharmacy Electronically, [facility] #[id number], please schedule appt for further refills, 162, cm, 09/21/19 12:01:00 ESTLaurie... Start Date: 12/06/19 Status: Ordered Claritin 10 mg oral tablet 10 mg, 1, tablet, By Mouth, Daily, for 30 days, # 30 tablet, Refills 11, Tot. Refills 11, Acute 05/11/20 17:36:41 EDT, 05/17/19 17:36:41 EDT, Route to Pharmacy Electronically, [id number] [address] [place] [address] Start Date: 05/17/19 Stop Date: 05/11/20 Status: Ordered colchicine 0.6 mg oral tablet See Instructions, take 1 tablet by mouth once daily if needed for PSEUDOGOUT pain, # 30 tablet, Refills 5, Tot. Refills 5, Soft Stop, 01/05/20 8:41:00 EDT, Instructions Replace Required Details, Route to Pharmacy Electronically, [facility] #... Start Date: 01/05/20 Status: Ordered [...] Gm, 1 Refills, Maintenance, 12/20/19 16:30:00 EDT, [facility] #[id number], 162, cm, 09/21/19 12:01:00 EST, Height, 116.4, [...] mL, 5 Refills, Maintenance, 10/01/18 10:08:42 EST, [place], 2 sprays Nares, Both 2 times a [...] 03/22/20 16:34:00 EDT, Route to Pharmacy Electronically, [facility] #[id number], 165, cm, 02/02/2014:39:00 EDT, Height, 127, kg, [...] 0 Refills, Maintenance, 03/26/20 17:11:00 EDT, Tablet, [facility] #[id number], 03/27/20, 165, cm, 02/03/20 14:39:00 EDT, He... [...] 11 Refills, Soft Stop, 01/19/20 11:46:00 EDT, [facility] #[id number], 165, cm, 01/16/20 6:17:00 EDT, Height, 128.1, kg, 01/16/20 6:17:00 EDT, Dry Weight Start Date: 01/19/20 Status: Ordered warfarin 5 mg oral tablet 1 tablet = 5 mg, By Mouth, Daily, dosing subject to change pending inr lab values, # 30 tablet, 5 Refills, Maintenance, 02/15/20 13:21:00 EDT, Tablet, [facility] #[id number], 165, cm, 02/03/20 14:39:00 EDT, Height, 127, [...]
--- OUTSIDE RECORDS SUMMARY | 2024-01-02 21:14 | XMS_ITS | Continuity of Care Document ---
Author Organization [facility] Robin Jane Nolberto lt Address [address] [place] [address]- Care Team Providers Care Irrigation Pump Installer Name Role Phone Fuentes Garcia MD Primary Care Physician [phone] Encounter [facility] Date(s): 07/12/20 - 07/19/20 [facility] Adult [address] [place] [address]- Encounter Diagnosis Recurrent bacterial cystitis(Discharge Diagnosis) - 07/12/20 Attending Physician: Fuentes Garcia MD Allergies, Adverse [...] H1N1, inactive(oldterm) 8 05/08/11 Given 1Result Comment: [id number] 2Result Comment: [id number] 3Result Comment: [07/08/2017] [id number] 4Admin Note: [facility] 5Admin Note: [facility] [...] 5 Refills, Maintenance, 07/03/20 9:16:00 EST, Cream, [facility] #[id number], Partial fill upon patient request if the [...] 06/04/20 12:56:00 EST, Route to Pharmacy Electronically, [facility] #[id number], please schedule appt for further refills, 165, cm, 05/16/20 14:15:00 EDT, Emanueli... Start Date: 06/04/20 Status: Ordered colchicine 0.6 mg oral tablet See Instructions, take 1 tablet by mouth once daily if needed for PSEUDOGOUT pain, # 30 tablet, Refills 5, Tot. Refills 5, Soft Stop, 01/05/20 8:41:00 EDT, Instructions Replace Required Details, Route to Pharmacy Electronically, [facility] #... Start Date: 01/05/20 Status: Ordered Disposable [...] Gm, 3 Refills, Maintenance, 06/22/20 14:58:00 EST, [facility] #[id number], 165, cm, 06/07/20 13:52:00 EST, Height, 127, [...] mL, 5 Refills, Maintenance, 10/01/18 10:08:42 EST, Mobile, 2 sprays Nares, Both 2 times a [...] tablet, 1 Refills, Maintenance, 07/12/20 13:56:00 EST, [facility] #[id number], Partial fill upon patient request if the prescription is for a schedule II opioid drug., 165, cm, 07/11/20 15:24:00 EST,... Start Date: 07/12/20 Stop Date: 07/05/21 Status: Ordered metoprolol 25 mg oral tablet 25 mg, 1, tablet, By Mouth, 2 times a day, # 60 tablet, Refills 5, Tot. Refills 5, Maintenance, 03/22/20 16:34:00 EDT, Route to Pharmacy Electronically, [facility] #[id number], 165, cm, 02/02/2014:39:00 EDT, Height, 127, kg, [...] 0 Refills, Maintenance, 06/18/20 16:57:00 EST, Patch, [facility] #[id number], Partial fill upon patient request, 165, cm, 06/07/20 13:52:00 EST, Height, 127, kg, 02/03/20 14:39:00 EDT, Dry Weight Start Date: 06/18/20 Stop Date: 07/30/20 Status: Ordered NuLYTELY with Flavor Packs oral powder for reconstitution See Instructions, Drink 240mL every 15-20 minutes until first half is gone. Repeat 6 hours prior toprocedure., # 4,000 mL, 0 Refills, Maintenance, 06/28/20 17:09:00 EST, [facility] #[id number],Partial fill upon patient request if the prescript... Start Date: 06/28/20 Status: Ordered oxyCODONE 10 mg oral tablet 1 tablet = 10 mg, By Mouth, Every 8 hours, DX Z79.891 G89.29 M47.816 OK TO FILL LESS THAN PRESCRIBED AMOUNT, # 84 tablet, 0 Refills, Maintenance, 07/16/20 17:18:00 EST, Tablet, [facility] #[id number], 07/17/20, 165, cm, 07/11/20 15:24:00 EST, He... [...] 5 Refills, Maintenance, 04/30/20 15:13:00 EDT, Tablet, [facility] #[id number], 165, cm, 04/30/20 14:30:00 EDT, Height, 127, kg, 02/03/20 14:39:00 EDT, Dry Weight Start Date: 04/30/20 Status: Ordered rosuvastatin 10 mg oral tablet 1 tablet = 10 mg, By Mouth, Daily, # 90 tablet, 3 Refills, Maintenance, 05/03/20 16:35:00 EDT, Tablet, [facility] #[id number], d/c rx for capsules, 165, cm, 04/30/20 14:30:00 EDT, Height, 127, kg, 02/03/20 14:39:00 EDT, Dry Weight Start Date: 05/03/20 Status: Ordered Ventolin HFA 108 mcg/inh inhalation aerosol with adapter 2 puffs, Inhalation, Every 4 hours, PRN Wheezing/Shortness of Breath, # 1 each, 11 Refills, Soft Stop, 01/19/20 11:46:00 EDT, 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
--- OUTSIDE RECORDS SUMMARY | 2024-01-02 21:14 | XMS_ITS | Continuity of Care Document ---
Author Organization [facility] Nolberto Address [address] [place] [address]- Care Team Providers Care Home Health Care Provider Name Role Phone Krishan GRIDER, Eulogio Molina Primary Care Physician Encounter [facility] Date(s): 12/16/21 - 01/15/22 [facility] Adult [address] [place] [address]- Allergies, Adverse Reactions, Alerts Substance Reaction Severity Status Adhesive Bandage Active Dust copd exac/sinus congestion A ctive Immunizations Given and Recorded Vaccine Date Status Refusal Reason SARS-CoV-2 mRNA (iwllkjr-mthz-tyevo) vax 08/30/21 Recorded influenza virus vaccine, inactivated [...] 01/02/21 Recorded SARS-CoV-2 (COVID-19) mRNA BNT-162b2 vac 5/9/21 Recorded Fluvirin (oldterm) 7 03/22/15 Given Fluzone Preservative-Free (oldterm) 8 03/12/12 Giv en pneumococcal 23-valent vaccine 10/08/11 Given tetanus/diphtheria/pertussis, acel(Tdap) 09/08/11 Given tetanus/diphtheria/pertussis, acel(Tdap) 12/17/06 Recorded influ virus vac, H1N1, inactive(oldterm) 9 05/08/11 Given hepatitis B adult vaccine 06/14/02 Recorded 1Result Comment: [id number] 2Result Comment: [id number] 3Result Comment: [id number] 4Result Comment: [07/08/2017] [id number] 5Admin Note: [facility] 6Admin Note: [facility] 04-08 7Admin Note: Given at [facility] 8Admin Note: 03-11-12 GIVEN AT [facility] 9Admin Note: rcvd elsewhere Medications acetaminophen 325 mg [...] 8.5 Gm, 5 Refills, 05/29/21 17:13:00 EDT, [facility] #[id number], 17, INHALE 2 PUFFS BY MOUTH EVERY 4 HOURS NEEDED FOR WHEEZING OR SHORTNE... Start Date: 05/29/21 Status: Ordered calcipotriene 0.005% topical cream 1 application, Topically, 2 times a day, # 60 Gm, 11 Refills, Maintenance, 11/15/21 11:54:00 EDT, Cream, [facility], Partial fill upon patient request if the prescription is for a schedule IIopioid drug., 1 application Topically 2 times a day... Start Date: 11/15/21 Status: Ordered celecoxib 200 mg oral capsule 1 capsule = 200 mg, By Mouth, Daily in AM, # 30 capsule, 0 Refills, Maintenance, 01/11/22 7:25:00 EDT, Capsule, [facility], Partial fill upon patient request if the prescription is for a schedule II opioid drug., 159, cm, 01/11/22 6:35:0... Start Date: 01/11/22 Stop Date: 02/10/22 Status: Ordered cloNIDine 0.1 mg oral tablet See Instructions, TAKE 1 TABLET BY MOUTH TWICE A DAY NEEDED FOR FOR ANXIETY, # 60 tablet, Refills 0, Instructions Replace Required Details, Route to Pharmacy Electronically, [facility], 165, cm, 01/06/22 14:35:00 EDT, Height, 102.1, kg, ... Start Date: 01/09/22 Status: Ordered colchicine 0.6 mg oral tablet 0.6 mg, 1, tablet, By Mouth, Daily, # 30 tablet, Refills 11, Tot. Refills 11, Maintenance, :00:00 EDT, Route to Pharmacy Electronically, [facility], Partial fill upon patient request if the prescription is for a schedule II opioid dr... Start Date: 10/30/21 Status: Ordered digoxin 0.125 mg oral tablet 0.125 mg, 1, tablet, By Mouth, Daily, Refills 0, Maintenance, 01/11/22 7:25:00 EDT, Partial fill upon patient request if the prescription is for a schedule II opioid drug. Start Date: 01/11/22 Status: Ordered docusate sodium 100 mg oral capsule 100 mg, 1, capsule, By Mouth, 2 times a day, hold for loose stool, # 60 capsule, Refills 0, Tot. Refills 0, Maintenance, 01/11/22 7:25:00 EDT, Route to Pharmacy Electronically, [facility], Partial fill upon patient request if the prescri... Start Date: 01/11/22 Stop Date: 02/10/22 Status: Ordered duloxetine 20 mg oral enteric coated capsule 2 capsule = 40 mg, By Mouth, Daily at bedtime, # 60 capsule, 11 Refills, Maintenance, 06/25/21 12:00:00 EST, Capsule, [facility], Partial fill upon patient request if the prescription is for a schedule II opioid drug., 165, cm, 06/25/21 11:35:... Start Date: 06/25/21 Status: Ordered duloxetine 60 mg oral enteric coated capsule 1 capsule = 60 mg, By Mouth, Daily in AM, 0 Refills, Maintenance, 07/30/18 11:21:14 EST Start Date: 07/30/18 Status: Ordered enoxaparin 30 mg/0.3 mL injectable solution 0.3 mL = 30 mg, Subcutaneous Injection, 2 times a day, for 7 days, discontinue when iNR is greater than 1.8, # 4.2 mL, 0 Refills, Acute 01/18/22 7:26:00 EDT, 01/11/22 7:26:00 EDT, [facility], Partial fill upon patient request... Start Date: 01/11/22 Stop Date: 01/18/22 Status: Ordered gabapentin 300 mg oral capsule 600 mg, 2, capsule, By Mouth, 2 times a day, Refills 0, Maintenance, 01/11/22 7:26:00 EDT, Partial fill upon patient request if the prescription is for a schedule II opioid drug. Start Date: 01/11/22 Status: Ordered HYDROmorphone 2 mg oral tablet See Instructions, PRN Pain , Moderate, Take 1-2 tablets By Mouth Every 4 hours as needed, # 60 tablet, 0 Refills, Acute 01/16/22 7:27:00 EDT, 01/11/22 7:26:00 EDT, Tablet, [facility], Partial fill upon patient request if the prescription... Start Date: 01/11/22 Stop Date: 01/16/22 Status: Ordered loratadine 10 mg oral tablet See Instructions, TAKE 1 TABLET BY MOUTH ONCE A DAY, # 90 tablet, Refills 1, Instructions Replace Required Details, Route to Pharmacy Electronically, [facility], 165, cm, 06/25/21 11:35:00 EST, Height, 127, kg, 02/03/20 14:39:00 EDT, Dry Weight Start Date: 08/05/21 Status: Ordered Maalox Plus Liquid 30 mL, By Mouth, Every 4 hours, PRN Other, Heartburn, 0 Refills, Maintenance, 01/11/22 7:25:00 EDT,Suspension, Partial fill upon patient request if the prescription is for a schedule II opioid drug. Start Date: 01/11/22 Status: Ordered metoprolol 100 mg oral tablet, extended release 100 mg, 1, tablet, By Mouth, Daily, # 90 tablet, Refills 1, Tot. Refills 1, Maintenance, 12/11/21 13:41:00 EDT, Route to Pharmacy Electronically, [facility], Partial fill upon patient requestif the prescription is for a schedule II opioid keanu... Start Date: 12/11/21 Status: Ordered Milk of Magnesia Liquid 30 mL, By Mouth, Daily, PRN Constipation, 0 Refills, Maintenance, 01/11/22 7:27:00 EDT, Suspension,Partial fill upon patient request if the prescription is for a schedule II opioid drug. Start Date: 01/11/22 Status: Ordered MiraLax Powder 1 pack/packet = 17 Gm, By Mouth, Daily, PRN Constipation, 0 Refills, Maintenance, 01/11/22 7:27:00 EDT, Powder, Partial fill upon patient request if the prescription is for a schedule II opioid drug. Start Date: 01/11/22 Status: Ordered nicotine 4 mg oral transmucosal gum 1 each = 4 mg, Chew, Every 2 hours, PRN as needed for smoking cessation, # 160 each, 2 Refills, Acute 03/05/22 16:36:00 EDT, 12/03/21 16:35:00 EDT, Gum, [facility] #[id number], Partial fill uponpatient request if the prescription is for a schedu... Start Date: 12/03/21 Stop Date: 03/05/22 Status: Ordered nitrofurantoin macrocrystals-monohydrate 100 mg oral capsule 1 capsule = 100 mg, By Mouth, 2 times a day, for 30 days, # 60 capsule, 0 Refills, Acute 02/10/22 7:34:00 EDT, 01/11/22 7:34:00 EDT, Capsule, Partial fill upon patient request if the prescription is for a schedule II opioid drug. Start Date: 01/11/22 Stop Date: 02/10/22 Status: Ordered pantoprazole 40 mg oral delayed release tablet = 40 mg, By Mouth, Daily in AM, # 30 tablet, 0 Refills, Maintenance, 01/11/22 7:27:00 EDT, EC Tablet, 159, cm, 01/11/22 6:35:00 EDT, Height, 98.8, kg, 01/10/22 9:12:00 EDT, Dry Weight Start Date: 01/11/22 Stop Date: 02/10/22 Status: Ordered penicillin V potassium 250 mg oral tablet 1 tablet, By Mouth, 2 times a day, CELLULITIS PROPHYLAXIS., # 60 tablet, 6 Refills, [facility], 165, cm, 11/08/21 10:02:00 EDT, Height, 127, kg, 02/03/20 14:39:00 EDT, Dry Weight Start Date: 11/15/21 Status: Ordered rOPINIRole 0.5 mg oral tablet 1 tablet, By Mouth, 3 times a day, # 90 tablet, 5 Refills, 11/08/21 9:01:00 EDT, [facility], 165, cm, 11/04/21 8:42:00 EDT, Height, 127, kg, 02/03/20 14:39:00 EDT, Dry Weight Start Date: 11/08/21 Status: Ordered rosuvastatin 10 mg oral tablet See Instructions, TAKE 1 TABLET BY MOUTH DAILY, # 90 tablet, 1 Refills, Maintenance, 10/18/21 21:30:00 EDT, [facility], 165, cm, 09/04/21 14:01:00 EST, Height, 127, kg, 02/03/20 14:39:00 EDT,Dry Weight Start Date: 10/18/21 Status: Ordered senna 187 mg oral tablet 1 tablet = 8.6 mg, By Mouth, Daily at bedtime, PRN as needed for constipation, 0 Refills, Maintenance, 01/11/22 7:27:00 EDT, Tablet, Partial fill upon patient request if the prescription is for a schedule II opioid drug. Start Date: 01/11/22 Status: Ordered Symbicort 80mcg/4.5mcg Inhaler 2, puffs, Inhalation, 2 times a day, Maintenance inhaler; rinse mouth and throat after use; in the morning and the evening, # 6.9 Gm, Refills 2, Tot. Refills 2, Maintenance, 12/24/21 6:30:00 EDT, Aerosol, Route to Pharmacy Electronically, [facility]... Start Date: 12/24/21 Status: Ordered traMADol 50 mg oral tablet See Instructions, PRN Pain , Mild, Take 1-2 tablets By Mouth Every 6 hours as needed, # 56 tablet, 0 Refills, Acute 01/18/22 7:28:00 EDT, 01/11/22 7:28:00 EDT, Tablet, [facility], Partial fill upon patient request if the prescription is... Start Date: 01/11/22 Stop Date: 01/18/22 Status: Ordered warfarin 1 mg oral tablet See Instructions, Take 1-10 tablets By Mouth Daily as directed by THOM, # 150 tablet, 0 Refills, Maintenance, 01/11/22 7:24:00 EDT, Tablet, [facility], Partial fill upon patient requestif the prescription is for a schedule II opioid keanu... Start Date: 01/11/22 Stop Date: 02/10/22 Status: Ordered Problem List Condition Effective Dates [...] long-term use(Confirmed) Active Gastric banding status(Confirmed) Active detention current use of 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
--- OUTSIDE RECORDS SUMMARY | 2024-01-02 21:14 | XMS_ITS | Continuity of Care Document ---
Author Organization [facility] Address [address] [place] [address]- Care Team Providers Care Caretaker Name Role Phone Krishan GRIDER, Eulogio Molina Primary Care Physician [phone] Encounter [facility] Date(s): 01/17/22 - 05/17/22 [facility] [address] [place] [id number] Attending Physician: Sayda Fields MD Admitting Physician: Sayda Fields MD Referring Physician: Sayda Fields MD Allergies, Adverse Reactions, Alerts Substance Reaction [...] vaccine, inactivated 05/10/07 Jarrett rded SARS-CoV-2 mRNA (lovcfyj-xxog-pvqjb) vax 08/30/21 Recorded SARS-CoV-2 (COVID-19) mRNA BNT-162b2 vac 6/9/21 Recorded SARS-CoV-2 (COVID-19) mRNA BNT-162b2 vac 12/02/20 Recorded Fluvirin (oldterm) 8 03/22/15 Given Fluzone Preservative-Free (oldterm) 9 03/12/12 Giv en pneumococcal 23-valent vaccine 10/08/11 Given tetanus/diphtheria/pertussis, acel(Tdap) 09/08/11 Given tetanus/diphtheria/pertussis, acel(Tdap) 12/17/06 Recorded influ virus vac, H1N1, inactive(oldterm) 10 05/08/11 Given hepatitis B adult vaccine 06/14/02 Recorded 1Result Comment: [id number] 2Result Comment: [id number] 3Result Comment: [id number] 4Result Comment: [id number] 5Result Comment: [07/08/2017] [id number] 6Admin Note: [facility] 7Admin Note: [facility] [...] Gm, 4 Refills, Maintenance, 04/28/22 13:11:00 [facility], INHALE 2 PUFFS BY MOUTH EVERY FOUR HOURS NEEDED FOR WHEEZING... Start Date: 04/28/22 Status: Ordered cloNIDine 0.1 mg oral tablet See Instructions, TAKE 1 TABLET BY MOUTH TWICE A DAY NEEDED FOR FOR ANXIETY (VIAL), # 60 tablet,Refills 1, Maintenance, 04/28/22 13:11:00 EDT, Instructions Replace Required Details, Route to Pharmacy Electronically, [facility], 159, cm, 06... Start Date: 04/28/22 Status: Ordered colchicine 0.6 mg oral tablet 0.6 mg, 1, tablet, By Mouth, Daily, # 30 tablet, Refills 11, Tot. Refills 11, Maintenance, :00:00 EDT, Route to Pharmacy Electronically, [facility], Partial fill [...] 01/11/22 7:25:00 EDT, Route to Pharmacy Electronically, [facility], Partial fill upon patient request if the [...] 11:21:14 EST Start Date: 07/30/18 Status: Ordered loratadine 10 mg oral tablet See Instructions, TAKE 1 TABLET BY MOUTH ONCE A DAY, # 90 tablet, Refills 1, Instructions Replace Required Details, Route to Pharmacy Electronically, [facility], 165, cm, 06/25/21 11:35:00 EST, Height, 127, kg, 02/03/20 14:39:00 EDT, Dry Weight Start Date: 08/05/21 Status: Ordered penicillin V potassium 250 mg oral tablet 1 tablet, By Mouth, 2 times a day, CELLULITIS PROPHYLAXIS., # 60 tablet, 6 Refills, [facility], 165, cm, 11/08/21 10:02:00 EDT, Height, 127, kg, 02/03/20 14:39:00 EDT, Dry Weight Start Date: 11/15/21 Status: Ordered rOPINIRole 0.5 mg oral tablet 1 tablet, By Mouth, 3 times a day, # 90 tablet, 5 Refills, 03/07/22 6:14:00 EDT, [facility], 159, cm, 01/11/22 15:15:00 EDT, Height, 98.8, kg, 01/10/22 9:12:00 EDT, Dry Weight Start Date: 03/07/22 Status: Ordered rosuvastatin 10 mg oral tablet See Instructions, TAKE 1 TABLET BY MOUTH DAILY, # 90 tablet, 1 Refills, Maintenance, 04/04/22 11:35:00 EDT, [facility], 159, cm, 01/11/22 15:15:00 EDT, Height, 98.8, kg, 01/10/22 9:12:00 EDT,Dry Weight Start Date: 04/04/22 Status: Ordered Symbicort 80mcg/4.5mcg Inhaler See Instructions, INHALE 2 PUFFS BY MOUTH TWICE A DAY RINSE MOUTH AND THROAT AFTER USE, # 10.2 Gm, Refills 5, Instructions Replace Required Details, Route to Pharmacy Electronically, [id number], [facility], 159, cm, 01/11/22 15:15:00 EDT... Start Date: 02/13/22 Status: Ordered warfarin 1 mg oral tablet See Instructions, Take 1-10 tablets By Mouth Daily as directed by [facility], # 150 tablet, 0 Refills, Maintenance, 01/11/22 7:24:00 EDT, Tablet, [facility], Partial fill upon patient requestif the prescription is for a schedule II opioid keanu... 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 Active Type 2 diabetes mellitus with hyperglycemia Confirmed Active Hyperparathyroidism Confirmed Active Lymphedema Confirmed Active Obese class II Confirmed Active Severe obstructive sleep apnea-hypopnea syndrome [...] Active Encounter for screening colonoscopy Confirmed Active Persistent moderate somatic symptom disorder with predominant pain Confirmed Active Spinal stenosis, lumbar Confirmed 06/04/12 Active Stasis dermatitis Confirmed Active UI (urinary incontinence) Confirmed Active 1Mild obstruction on PFT's September 2011 Social History Social History Type Response Smoking Status 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
--- OUTSIDE RECORDS SUMMARY | 2024-01-02 21:15 | XMS_ITS | Continuity of Care Document ---
Author Organization [facility] [place] N[facility]to Address [address] [place] [address]- Care Team Providers Care Resident Programs Assistant Name Role Phone Krishan GRIDER, Eulogio Molina Primary Care Physician Encounter [facility] Date(s): 03/20/22 - 04/19/22 [facility] [place] Adult [address] [place] [address]- Allergies, Adverse Reactions, Alerts Substance Reaction Severity Status Adhesive Bandage Active Dust copd exac/sinus congestion A ctive Immunizations Given and Recorded Vaccine Date Status Refusal Reason SARS-CoV-2 mRNA (wetqvmn-[id number]) vax 08/30/21 Recorded influenza virus vaccine, inactivated [...] B adult vaccine 06/14/02 Recorded 1Result Comment: [id number] 2Result Comment: [id number] 3Result Comment: [id number] 4Result Comment: [07/08/2017] [id number] 5Admin Note: [facility] 6Admin Note: [facility] [...] 8.5 Gm, 5 Refills, 05/29/21 17:13:00 EDT, [id number], 17, INHALE 2 PUFFS BY MOUTH EVERY [...] 0 Refills, Maintenance, 01/11/22 7:25:00 EDT, Capsule, [facility], Partial fill upon patient request if the prescription is for a schedule II opioid drug., 159, cm, 01/11/22 6:35:0... Start Date: 01/11/22 Stop Date: 02/10/22 Status: Ordered cloNIDine 0.1 mg oral tablet See Instructions, TAKE 1 TABLET BY MOUTH TWICE A DAY NEEDED FOR FOR ANXIETY (VIAL), # 60 tablet,Refills 2, Instructions Replace Required Details, Route to Pharmacy Electronically, [facility], 159, cm, 01/11/22 15:15:00 EDT, Height, 98.8, k... Start Date: 02/07/22 Status: Ordered colchicine 0.6 mg oral tablet 0.6 mg, 1, tablet, By Mouth, Daily, # 30 tablet, Refills 11, Tot. Refills 11, Maintenance, :00:00 EDT, Route to Pharmacy Electronically, [facility], Partial fill upon patient [...] 01/11/22 7:25:00 EDT, Route to Pharmacy Electronically, [facility], Partial fill upon patient request if the prescri... Start Date: 01/11/22 Stop Date: 02/10/22 Status: Ordered duloxetine 20 mg oral enteric coated capsule 2 capsule = 40 mg, By Mouth, Daily at bedtime, # 60 capsule, 11 Refills, Maintenance, 06/25/21 12:00:00 EST, Capsule, [facility], Partial fill upon patient request if the prescription is for a schedule II opioid drug., 165, cm, 06/25/21 11:35:... Start Date: 06/25/21 Status: Ordered duloxetine 60 mg oral enteric coated capsule 1 capsule = 60 mg, By Mouth, Daily in AM, 0 Refills, Maintenance, 07/30/18 11:21:14 EST Start Date: 07/30/18 Status: Ordered gabapentin 300 mg oral capsule 600 mg, 2, capsule, By Mouth, 2 times a day, Refills 0, Maintenance, 01/11/22 7:26:00 EDT, Partial fill upon patient request if the prescription is for a schedule II opioid drug. Start Date: 01/11/22 Status: Ordered loratadine 10 mg oral tablet See Instructions, TAKE 1 TABLET BY MOUTH ONCE A DAY, # 90 tablet, Refills 1, Instructions Replace Required Details, Route to Pharmacy Electronically, [facility], 165, cm, 06/25/21 11:35:00 EST, Height, [...] 12/11/21 13:41:00 EDT, Route to Pharmacy Electronically, [facility], Partial fill upon patient requestif the [...] opioid drug. Start Date: 01/11/22 Status: Ordered pantoprazole 40 mg oral delayed [...] CELLULITIS PROPHYLAXIS., # 60 tablet, 6 Refills, [facility], 165, cm, 11/08/21 10:02:00 EDT, Height, 127, kg, 02/03/20 14:39:00 EDT, Dry Weight Start Date: 11/15/21 Status: Ordered rOPINIRole 0.5 mg oral tablet 1 tablet, By Mouth, 3 times a day, # 90 tablet, 5 Refills, 03/07/22 6:14:00 EDT, [facility], 159, cm, 01/11/22 15:15:00 EDT, Height, 98.8, kg, 01/10/22 9:12:00 EDT, Dry Weight Start Date: 03/07/22 Status: Ordered rosuvastatin 10 mg oral tablet See Instructions, TAKE 1 TABLET BY MOUTH DAILY, # 90 tablet, 1 Refills, Maintenance, 04/04/22 11:35:00 EDT, [facility], 159, cm, 01/11/22 15:15:00 EDT, Height, 98.8, kg, 01/10/22 9:12:00 EDT,Dry Weight Start Date: 04/04/22 Status: Ordered senna 187 mg oral tablet 1 tablet = 8.6 mg, By Mouth, Daily at bedtime, PRN as needed for constipation, 0 Refills, Maintenance, 01/11/22 7:27:00 EDT, Tablet, Partial fill upon patient request if the prescription is for a schedule II opioid drug. Start Date: 01/11/22 Status: Ordered Symbicort 80mcg/4.5mcg Inhaler See Instructions, INHALE 2 PUFFS BY MOUTH TWICE A DAY RINSE MOUTH AND THROAT AFTER USE, # 10.2 Gm, Refills 5, Instructions Replace Required Details, Route to Pharmacy Electronically, [facility]_[id number], [facility], 159, cm, 01/11/22 15:15:00 EDT... Start Date: 02/13/22 Status: Ordered warfarin 1 mg oral tablet See Instructions, Take 1-10 tablets By Mouth Daily as directed by THOM, # 150 tablet, 0 Refills, Maintenance, 01/11/22 7:24:00 EDT, Tablet, [facility], Partial fill upon [...] 06/04/12 Active Encounter for screening colonoscopy(Confirmed) Active Persistent moderate somatic symptom disorder with predominant pain(Confirmed) Active Spinal stenosis, lumbar(Confirmed) 06/04/12 Active Stasis dermatitis(Confirmed) Active UI (urinary incontinence)(Confirmed) Active 1Mild obstruction on PFT's September 2011 Social History Social History Type Response Smoking Status 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
--- OUTSIDE RECORDS SUMMARY | 2024-01-02 21:15 | XMS_ITS | Continuity of Care Document ---
Author Organization [facility] Address [address] [place] [address]- Care Team Providers Care Front Window Cashier Name Role Phone Fuentes Garcia MD Primary Care Physician [phone] Encounter [facility] Date(s): 06/28/20 - 07/28/[address] [facility] [address] [place] [id number] Attending Physician: Admtr, Desire Admitting Physician: Admtr, Ar8 Referring Physician: Admtr, [...] H1N1, inactive(oldterm) 8 05/08/11 Given 1Result Comment: [id number] 2Result Comment: [id number] 3Result Comment: [07/08/2017] [id number] 4Admin Note: [facility] 5Admin Note: [facility] [...] 5 Refills, Maintenance, 07/03/20 9:16:00 EST, Cream, [facility] #[id number], Partial fill upon patient request if the [...] 06/04/20 12:56:00 EST, Route to Pharmacy Electronically, [facility] #[id number], please schedule appt for further refills, 165, cm, 05/16/20 14:15:00 EDT, Hei... Start Date: 06/04/20 Status: Ordered colchicine 0.6 mg oral tablet See Instructions, take 1 tablet by mouth once daily if needed for PSEUDOGOUT pain, # 30 tablet, Refills 5, Tot. Refills 5, Soft Stop, 01/05/20 8:41:00 EDT, Instructions Replace Required Details, Route to Pharmacy Electronically, [facility] #... Start Date: 01/05/20 Status: Ordered [...] Gm, 3 Refills, Maintenance, 06/22/20 14:58:00 EST, [facility] #[id number], 165, cm, 06/07/20 13:52:00 EST, Height, 127, [...] mL, 5 Refills, Maintenance, 10/01/18 10:08:42 EST, [place], 2 sprays Nares, Both 2 times a [...] tablet, 1 Refills, Maintenance, 07/12/20 13:56:00 EST, [facility] #[id number], Partial fill upon patient request if the prescription is for a schedule II opioid drug., 165, cm, 07/11/20 15:24:00 EST,... Start Date: 07/12/20 Stop Date: 07/05/21 Status: Ordered metoprolol 25 mg oral tablet 25 mg, 1, tablet, By Mouth, 2 times a day, # 60 tablet, Refills 5, Tot. Refills 5, Maintenance, 03/22/20 16:34:00 EDT, Route to Pharmacy Electronically, [facility] #[id number], 165, cm, 02/02/2014:39:00 EDT, Height, 127, kg, [...] 0 Refills, Maintenance, 06/18/20 16:57:00 EST, Patch, [facility] #[id number], Partial fill upon patient request, 165, cm, 06/07/20 13:52:00 EST, Height, 127, kg, 02/03/20 14:39:00 EDT, Dry Weight Start Date: 06/18/20 Stop Date: 07/30/20 Status: Ordered NuLYTELY with Flavor Packs oral powder for reconstitution See Instructions, Drink 240mL every 15-20 minutes until first half is gone. Repeat 6 hours prior toprocedure., # 4,000 mL, 0 Refills, Maintenance, 06/28/20 17:09:00 EST, [facility] #[id number],Partial fill upon patient request if the prescript... Start Date: 06/28/20 Status: Ordered oxyCODONE 10 mg oral tablet 1 tablet = 10 mg, By Mouth, Every 8 hours, DX Z79.891 G89.29 M47.816 OK TO FILL LESS THAN PRESCRIBED AMOUNT, # 84 tablet, 0 Refills, Maintenance, 07/16/20 17:18:00 EST, Tablet, [facility] #[id number], 07/17/20, 165, cm, 07/11/20 15:24:00 EST, He... [...] 5 Refills, Maintenance, 04/30/20 15:13:00 EDT, Tablet, [facility] #[id number], 165, cm, 04/30/20 14:30:00 EDT, Height, 127, kg, 02/03/20 14:39:00 EDT, Dry Weight Start Date: 04/30/20 Status: Ordered rosuvastatin 10 mg oral tablet 1 tablet = 10 mg, By Mouth, Daily, # 90 tablet, 3 Refills, Maintenance, 05/03/20 16:35:00 EDT, Tablet, [facility] #[id number], d/c rx for capsules, 165, cm, 04/30/20 14:30:00 EDT, Height, 127, kg, 02/03/20 14:39:00 EDT, Dry Weight Start Date: 05/03/20 Status: Ordered Ventolin HFA 108 mcg/inh inhalation aerosol with adapter 2 puffs, Inhalation, Every 4 hours, PRN Wheezing/Shortness of Breath, # 1 each, 11 Refills, Soft Stop, 01/19/20 11:46:00 EDT, [facility] #[id number], 165, cm, 01/16/20 6:17:00 EDT, Height, 128.1, kg, 01/16/20 6:17:00 EDT, Dry Weight Start Date: 01/19/20 Status: Ordered warfarin 5 mg oral tablet 1 tablet = 5 mg, By Mouth, Daily, dosing subject to change pending inr lab values, # 30 tablet, 5 Refills, Maintenance, 02/15/20 13:21:00 EDT, Tablet, [facility] #[id number], 165, cm, 02/03/20 14:39:00 EDT, Height, 127, [...]
--- OUTSIDE RECORDS SUMMARY | 2024-01-02 21:15 | XMS_ITS | Continuity of Care Document ---
Author Organization [facility] Nolberto Address [address] [place] [address]- Care Team Providers Care Police Officer Crime Prevention Name Role Phone Fuentes Garcia MD Primary Care Physician [phone] Encounter [facility] Date(s): 09/21/19 - 09/28/19 [facility] Adult [address] [place] [address]- [facility] Encounter Diagnosis Arthritis of knee - bilateral(Discharge Diagnosis) - 09/21/19 Chronic pain syndrome(Discharge Diagnosis) - 09/21/19 Chronic back pain(Discharge Diagnosis) - 09/21/19 Severe obstructive sleep apnea-hypopnea syndrome(Discharge Diagnosis) - 09/21/19 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(Discharge Diagnosis) - 09/21/19 Dysuria(Discharge Diagnosis) - 09/21/19 Attending Physician: Fuentes Garcia MD Allergies, Adverse [...] H1N1, inactive(oldterm) 7 05/08/11 Given 1Result Comment: [id number] 2Result Comment: [07/08/2017] [id number] 3Admin Note: [facility] 4Admin Note: [facility] 9-13 5Admin Note: Given at [facility] 6Admin Note: [...] 14:30:22 EST, Route to Pharmacy Electronically, [facility]_ID- [id number], [facility] [address], please schedule appt for further refills Start Date: 06/17/19 Status: Ordered Claritin 10 mg oral tablet 10 mg, 1, tablet, By Mouth, Daily, for 30 days, # 30 tablet, Refills 11, Tot. Refills 11, Acute 05/11/20 17:36:41 EDT, 05/17/19 17:36:41 EDT, Route to Pharmacy Electronically, [facility]ID-[id number], [facility] [address] Start Date: 05/17/19 Stop Date: 05/11/20 Status: [...] mL, 5 Refills, Maintenance, 10/01/18 10:08:42 EST, [place], 2 sprays Nares, Both 2 times a [...] By Mouth, 2 times a day, for 7 days, # 14 capsule, 0 Refills, Acute 10/03/19 11:32:00 EDT, 09/26/19 11:32:00 EST, Capsule, [facility] #[id number], 162, cm, 09/21/19 12:01:00 EST, Height, 116.4, kg, 05/04/19 11:52:00 EDT, Dry W... Start Date: 09/26/19 Stop Date: 10/03/19 Status: Ordered metoprolol 25 mg oral tablet 25 mg, 1, tablet, By Mouth, 2 times a day, # 60 tablet, Refills 5, Tot. Refills 5, Maintenance, 09/28/19 11:53:00 EST, Route to Pharmacy Electronically, [facility] #[id number], 162, cm, 09/21/2011:01:00 EST, Height, 116.4, kg, [...] AMOUNT, # 84 tablet, 0 Refills, Maintenance, 09/12/19 13:08:00 EST, Tablet, [facility] #[id number], 09/13/19, 162, cm, 05/23/19 11:50:00 EDT, He... Start Date: 09/12/19 Status: Ordered OYSTER SHELL SHARIF-VIT D 500-400 See Instructions, # 300 tablet, take 1 tablet by mouth twice a day, [facility] [address] Start Date: 05/17/19 Status: Ordered penicillin V [...] IF NEEDED FOR WHEEZING - REPLACES PROAIR, [facility] [address] Start Date: 01/24/19 Status: Ordered Vitamin C [...] 8:32:52, Tablet Start Date: 11/06/16 Status: Ordered warfarin 5 mg oral tablet 1 tablet = 5 mg, By Mouth, Daily, dosing subject to change pending inr lab values, # 30 tablet, 5 Refills, Maintenance, 07/25/19 8:37:00 EST, Tablet, [facility] [address], 162, cm, 05/23/19 11:50:00 EDT, Height, 116.4, kg, 05/04/19 11:52:00 [facility] Start Date: 07/25/19 Status: Ordered Problem List [...] long-term use(Confirmed) Active Gastric banding status(Confirmed) Active prison current use of 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 Effective Dates Health Status Clinical Service Informant Arthritis of knee - bilateral Discharge Diagnosis 09/21/19 Chronic pain syndrome Discharge Diagnosis 09/21/19 Chronic back pain Discharge Diagnosis 09/21/19 Severe obstructive sleep apnea-hypopnea syndrome Discharge Diagnosis 09/21/19 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 Discharge Diagnosis 09/21/19 Dysuria Discharge Diagnosis 09/21/19 Vital Signs Most recent to oldest [Reference Range]: 1 Height 162 cm (09/21/19 12:01 PM) Weight 124.0 kg (09/21/19 12:01 PM) Oxygen Saturation [94-100 %] 98 % (09/21/19 12:01 PM) Pulse Rate [55-90 bpm] 88 bpm (09/21/19 12:01 PM) Body Mass Index [18.5-24.99] 47.25 *>HHI* (09/21/19 12:01 PM) Blood Pressure [90-138/55-84 mm Hg] 116/ 70mm Hg (09/21/19 12:01 PM) Temperature [96.8-100.4 DegF] 98.3 DegF (09/21/19 12:01 PM) Mode of Delivery (Oxygen) Room air (09/21/19 12:01 PM) Blood pressure sites Arm, left (09/21/19 12:01 PM) Temperature Route Oral (09/21/19 12:01 PM) Weight Obtained Via Standing scale (09/21/19 12:01 PM) Social History Social History Type Response Smoking Status 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
--- OUTSIDE RECORDS SUMMARY | 2024-01-02 21:15 | XMS_ITS | Continuity of Care Document ---
Author Organization [facility] Jane Nolberto Address [address] [place] [address]- Care Team Providers Care Central Communications Specialist Name Role Phone Kyle Ahumada DO Primary Care Physician [facility]counter [facility] Date(s): 05/12/23 - 06/11/23 [facility] Adult [address] [place] [address]- Allergies, Adverse Reactions, Alerts Substance Reaction Severity [...] vaccine, inactivated 05/10/07 Jarrett rded SARS-CoV-2 mRNA (uvnrqkw-uzfl-dzpec) vax 08/30/21 Recorded SARS-CoV-2 (COVID-19) mRNA BNT-162b2 vac 01/02/21 Recorded SARS-CoV-2 (COVID-19) mRNA BNT-162b2 vac 12/02/20 Recorded Fluvirin (oldterm) 10 03/22/15 Given Fluzone Preservative-Free (oldterm) 11 03/12/12 Gi octavio pneumococcal 23-valent vaccine 10/08/11 Given tetanus/diphtheria/pertussis, acel(Tdap) 09/08/11 Given tetanus/diphtheria/pertussis, acel(Tdap) 12/17/06 Recorded influ virus vac, H1N1, inactive(oldterm) 12 05/08/11 Given hepatitis B adult vaccine 06/14/02 Recorded 1Result Comment: PCV 20 [facility]#4882-2061-92 2Result Comment: Flu [facility]#36321-418-09 3Result Comment: [id number] 4Result Comment: [id number] 5Result Comment: [id number] 6Result Comment: [id number] 7Result Comment: [07/08/2017] 68564-801-22 8Admin Note: [facility] 9Admin Note: [facility] 9-13 10Admin Note: Given at [facility] 11Admin Note: 03-11-12 GIVEN AT [facility] 12Admin Note: rcvd elsewhere Medications acetaminophen 325 mg oral tablet 2, tablet, By Mouth, Every 6 hours, PRN, # 100 tablet, Refills 5, Maintenance, NEEDED FOR MODERATE PAIN (VIAL), 04/23/23 12:55:00 EDT, Route to Pharmacy Electronically, [facility], 160, cm, 04/02/23 12:45:00 EDT, Height, 98.8, kg, 07/17/22... Start Date: 04/23/23 Status: Ordered Albuterol (Eqv-ProAir HFA) 90 mcg/inh inhalation aerosol See Instructions, INHALE 2 PUFFS BY MOUTH EVERY FOUR HOURS NEEDED FOR WHEEZING OR SHORTNESS OF BREATH, # 8.5 Gm, 5 Refills, Maintenance, 03/13/23 9:55:00 EDT, [facility], 30, INHALE 2 PUFFS BY MOUTH [...] 05/09/23 20:57:00 EDT, Route to Pharmacy Electronically, [facility], 160, cm, 04/02/2312:45:00 EDT, Height, 98.8, kg, 07/17/22 8:58:00 ES... Start Date: 05/09/23 Status: Ordered cyclobenzaprine 5 mg oral tablet 1 tablet, By Mouth, 3 times a day, PRN NEEDED, SPASM (VIAL., # 90 tablet, 2 Refills, Maintenance, 06/08/23 9:15:00 EST, [facility], 160, cm, 06/03/23 11:30:00 EST, Height, 98.8, kg, 07/17/22 8:58:00 EST, Dry Weight Start Date: 06/08/23 Status: Ordered DilTIAZem (Eqv-Dilacor XR) 240 mg/24 hours oral capsule, extended release 1 capsule = 240 mg, By Mouth, Daily, # 90 capsule, 3 Refills, Maintenance, 03/13/23 17:04:00 EDT, CD Capsule, [facility], Partial fill upon patient request [...] 03/13/23 16:56:00 EDT, Route to Pharmacy Electronically, [facility], Partial fill upon patient request if the prescriptio... Start Date: 03/13/23 Stop Date: 04/12/23 Status: Ordered duloxetine 20 mg oral enteric coated capsule 2 capsule = 40 mg, By Mouth, Daily at bedtime, # 60 capsule, 11 Refills, Maintenance, 06/25/21 12:00:00 EST, Capsule, [facility], Partial fill upon patient request if [...] 03/02/23 18:12:00 EDT, Route to Pharmacy Electronically, [facility], Partial fill upon patient request if [...] mL, 5 Refills, Maintenance, 03/13/23 16:58:00 EDT, [place], [facility], Partial fill upon patient request if [...] 02/07/23 18:12:00 EDT, Route to Pharmacy Electronically, [facility], 160, cm, 12/16/22 10:46:00 EDT, [...] patch, 3 Refills, Maintenance, 06/08/23 9:15:00 EST, [facility], 30, APPLY 1 PATCH TOPICALLY DAILY, 160, cm, 06/03/23 11:30:00 EST, Height, 98.8, kg, 07/17/22 8:58:00 EST, Dry Weight Start Date: 06/08/23 Status: Ordered penicillin V potassium 250 mg oral tablet 1 tablet, By Mouth, 2 times a day, ^1R1,1R4., # 60 tablet, 5 Refills, Maintenance, 04/10/23 16:03:00 EDT, [facility], 160, cm, 04/02/23 12:45:00 EDT, Height, 98.8, kg, 07/17/22 8:58:00 EST, Dry Weight Start Date: 04/10/23 Status: Ordered rOPINIRole 0.5 mg oral tablet 1 tablet, By Mouth, 3 times a day, ^1R1,1R3,1R4., # 90 tablet, 5 Refills, Maintenance, 05/09/23 20:56:00 EDT, [facility], 160, cm, 04/02/23 12:45:00 EDT, Height, 98.8, kg, 07/17/22 8:58:00 EST, Dry Weight Start Date: 05/09/23 Status: Ordered rosuvastatin 10 mg oral tablet 1 tablet, By Mouth, Daily, ^1R1., # 30 tablet, 5 Refills, Maintenance, 02/07/23 18:12:00 EDT, [facility], 160, cm, 12/16/22 10:46:00 EDT, Height, 98.8, kg, 07/17/22 8:58:00 EST, Dry Weight Start Date: 02/07/23 Status: Ordered Symbicort 160mcg/4.5mcg Inhaler 2, puffs, Inhalation, 2 times a day, # 10.2 Gm, Refills 11, Tot. Refills 11, Maintenance, 06/03/23 11:47:00 EST, Aerosol, Route to Pharmacy Electronically, [id number], [facility], 160, cm, 06/03/23 11:30:00 EST, Height, 98.8, kg, ... 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 Confirmed Active [...] Team Personnel Name: Sandra Wills NP Position: [facility] PCO Associate Professional Member Role: Primary Care Nurse Address: Address: [address] [place] [address] [place] [address]- [place] Name: Marley Alejo RN Position: [facility] RN Member Role: Primary Care Nurse Name: Alma Delia Fonseca PharmD Position: [facility] Associate Professional Member Role: Lifetime Consulting Provider Address: Address: [address] [place] [address] [place] [address]- [place] Name: Yolis Mattson RN Position: [facility] RN Member Role: Primary Care Nurse Name: Priscila Garzon RN Position: [facility] RN Member Role: Primary Care Nurse Name: Kyle Ahumada DO Position: [facility] Physician - Primary Care Member Role: PCP Address: Address: [address] [place] [address] [place] [address]- [place] Name: Renea Mart RN Position: [facility] RN Member Role: Primary Care Nurse Care Team Related Persons Name: FAUZIA JANSEN Address: home [address] [place] [address] Name: AURELIA SHETH Address: home [address] [place] [address] Name: BRE OSORIO Address: home [address] [place] [address]
--- OUTSIDE RECORDS SUMMARY | 2024-01-02 21:15 | XMS_ITS | Continuity of Care Document ---
Author Organization [facility] Robin Jane Nolberto Address [address] [place] [address]- Care Team Providers Care Rehab Rn Name Role Phone Kyle Ahumada DO Primary Care Physician Encounter [facility] Date(s): 07/25/23 - 08/24/23 [facility] Adult [address] [place] [address]- Allergies, Adverse Reactions, Alerts Substance Reaction Severity [...] vaccine, inactivated 05/10/07 Jarrett rded SARS-CoV-2 mRNA ([id number]) vax 08/30/21 Recorded SARS-CoV-2 (COVID-19) mRNA BNT-162b2 vac 01/02/21 Recorded SARS-CoV-2 (COVID-19) mRNA BNT-162b2 vac 12/02/20 Recorded Fluvirin (oldterm) 10 03/22/15 Given Fluzone Preservative-Free (oldterm) 11 03/12/12 Gi octavio pneumococcal 23-valent vaccine 10/08/11 Given tetanus/diphtheria/pertussis, acel(Tdap) 09/08/11 Given tetanus/diphtheria/pertussis, acel(Tdap) 12/17/06 Recorded influ virus vac, H1N1, inactive(oldterm) 12 05/08/11 Given hepatitis B adult vaccine 06/14/02 Recorded 1Result Comment: PCV 20 [facility]#[id number] 2Result Comment: Flu [facility]#[id number] 3Result Comment: [id number] 4Result Comment: [id number] 5Result Comment: [id number] 6Result Comment: [id number] 7Result Comment: [07/08/2017] 54404-975-06 8Admin Note: [facility] 9Admin Note: [facility] 9-13 10Admin Note: Given at [facility] 11Admin Note: 03-11-12 GIVEN AT [facility] 12Admin Note: rcvd elsewhere Medications Albuterol (Eqv-ProAir HFA) 90 mcg/inh inhalation aerosol 2 puffs, Inhalation, Every 4 hours, PRN NEEDED FOR WHEEZING OR FOR SHORTNESS OF BREATH (BULK), #8.5 Gm, 5 Refills, Maintenance, 07/25/23 11:45:00 EST, [facility], 17, INHALE 2 PUFFS BY MOUTH EVERY 4 HOURS NEEDED FOR WHEEZING OR FOR SHOR... Start Date: 07/25/23 Status: Ordered cloNIDine 0.1 mg oral tablet 1, tablet, By Mouth, 2 times a day, PRN, ANXIETY (VIAL., # 56 tablet, Refills 2, Maintenance, NEEDED, 07/25/23 11:44:00 EST, Route to Pharmacy Electronically, [facility], 160, cm, 07/07/2315:02:00 EST, Height, 112.4, kg, 06/24/23 17:38:00... Start Date: 07/25/23 Status: Ordered cyclobenzaprine 5 mg oral tablet 1 tablet, By Mouth, 3 times a day, PRN NEEDED, SPASM (VIAL., # 90 tablet, 3 Refills, Maintenance, 08/19/23 10:07:00 EST, [facility], 160, cm, 07/07/23 15:02:00 EST, Height, 112.4, kg, 06/24/23 17:38:00 EST, Dry Weight Start Date: 08/19/23 Status: Ordered docusate sodium 100 mg oral capsule 100 mg, 1, capsule, By Mouth, 2 times a day, hold for loose stool, # 180 capsule, Refills 3, Tot. Refills 3, Maintenance, 03/13/23 16:56:00 EDT, Route to Pharmacy Electronically, [facility], Partial fill upon patient request if the prescriptio... Start Date: 03/13/23 Stop Date: 04/12/23 Status: Ordered duloxetine 20 mg oral enteric coated capsule 2 capsule = 40 mg, By Mouth, Daily at bedtime, # 60 capsule, 11 Refills, Maintenance, 06/25/21 12:00:00 EST, Capsule, [facility], Partial fill upon patient [...] Details, Route to Pharmacy Electronically, [facility], 160, cm, 07/07/23 15:02:00 EST, Height,... Start Date: 07/28/23 Status: Ordered furosemide 40 mg oral tablet 40 mg, 1, tablet, By Mouth, Daily, # 90 tablet, Refills 1, Tot. Refills 1, Maintenance, 03/02/23 18:12:00 EDT, [facility], Partial fill upon patient request if [...] mL, 11 Refills, Maintenance, 08/11/23 7:46:00 EST, [facility], 30, INSTILL 2 SPRAYS IN EACH [...] 07/01/23 14:32:00 EST, Route to Pharmacy Electronically, [facility], 160, cm, 06/26/23 11:21:00 EST, Height, 112.4, kg, 06/24/23 17:38:00 EST, Dry Weight Start Date: 07/01/23 Status: Ordered metFORMIN 500 mg oral tablet 1 tablet = 500 mg, By Mouth, 2 times a day, # 60 tablet, 5 Refills, Maintenance, 07/07/23 15:26:00 EST, Tablet, [facility], Partial fill upon patient request if the prescription is for a schedule II opioid drug., 160, cm, 07/07/23 15:02:00 EST... Start Date: 07/07/23 Stop Date: 01/03/24 Status: Ordered nicotine 21 mg/24 hr transdermal film, extended release 1 patch, Topically, Daily, # 30 patch, 3 Refills, Maintenance, 06/08/23 9:15:00 EST, [facility], 30, APPLY 1 PATCH TOPICALLY DAILY, [...] tablet, 5 Refills, Maintenance, 08/19/23 10:06:00 EST, [facility], 160, cm, 07/07/23 15:02:00 EST, Height, 112.4, kg, 06/24/23 17:38:00 EST,Dry Weight Start Date: 08/19/23 Status: Ordered rOPINIRole 0.5 mg oral tablet 1 tablet, By Mouth, 3 times a day, ^1R1,1R3,1R4., # 90 tablet, 5 Refills, Maintenance, 05/09/23 20:56:00 EDT, [facility], [facility], cm, 04/02/23 12:45:00 EDT, Height, 98.8, kg, 07/17/22 8:58:00 EST, Dry Weight Start Date: 05/09/23 Status: Ordered rosuvastatin 10 mg oral tablet 1 tablet, By Mouth, Daily, ^1R1., # 30 tablet, 5 Refills, Maintenance, 07/01/23 14:33:00 EST, [facility], 160, cm, 06/26/23 11:21:00 EST, Height, 112.4, kg, 06/24/23 17:38:00 EST, Dry Weight Start Date: 07/01/23 Status: Ordered Symbicort 160mcg/4.5mcg Inhaler 2, puffs, Inhalation, 2 times a day, # 10.2 Gm, Refills 11, Tot. Refills 11, Maintenance, 06/03/23 11:47:00 EST, Aerosol, Route to Pharmacy Electronically, NCPDP_[id number], [facility], 160, cm, 06/03/23 11:30:00 EST, Height, 98.8, kg, ... Start Date: 06/03/23 Status: Ordered Xarelto 20 mg oral tablet 1 tablet, By Mouth, Daily in PM, ^1R4., # 30 tablet, 5 Refills, Maintenance, 08/11/23 11:28:00 EST,[facility], 160, cm, 07/07/23 15:02:00 EST, Height, [...] Confirmed Active Gastric banding status Confirmed Active [facility] current use of opiate analgesic Confirmed Active [...] Response Smoking Status Current every day sm ayesha; Type: Cigarettes; Other: 1 pack daily; entered on: 04/19/18 Sex Female Patient Care team information Care Team Personnel Name: Sandra Wills NP Position: [facility] PCO Associate Professional Member Role: Primary Care Nurse Address: Address: [address] [place] [address] [place] [address]- [place] Name: Marley Alejo RN Position: S RN Member Role: Primary Care Nurse Name: Rashi Dewitt RN Position: S RN Member Role: Primary Care Nurse Name: Alma Delia Fonseca PharmD Position: [facility] Associate Professional Member Role: Lifetime Consulting Provider Address: Address: [address] [place] [address]- [place] Name: Yolis Mattson RN Position: [facility] RN Member Role: Primary Care Nurse Name: Priscila Garzon RN Position: [facility] RN Member Role: Primary Care Nurse Name: Kyle Ahumada DO Position: [facility] Physician - Primary Care Member Role: PCP Address: Address: [address] [place] [address] [place] [address]- [place] Name: Renea Mart RN Position: [facility] RN Member Role: Primary Care Nurse Care Team Related Persons Name: AYDENYOHANNESFAUZIA Address: home [address] [place] [address] Name: AURELIA SHETH Address: home [address] [place] [address] Name: BRE OSORIO Address: home [address] [place] [address]
--- OUTSIDE RECORDS SUMMARY | 2024-01-02 21:15 | XMS_ITS | Continuity of Care Document ---
Author Organization [facility] Robin Jane Nolberto Address [address] [place] [address]- Care Team Providers Care Jammer Hooker Name Role Phone Fuentes Garcia MD Primary Care Physician Encounter [facility] [place] Date(s): 04/17/20 - 04/24/20 [facility] Adult [address] [place] [address]- [facility] Encounter Diagnosis Acute cystitis(Discharge Diagnosis) - 04/17/20 Attending Physician: Fuentes Garcia MD Allergies, Adverse [...] H1N1, inactive(oldterm) 7 05/08/11 Given 1Result Comment: [id number] 2Result Comment: [07/08/2017] [id number] 3Admin Note: [facility] 4Admin Note: [facility] [...] 12/06/19 9:16:00 EDT, Route to Pharmacy Electronically, [facility] #[id number], please schedule appt for further refills, 162, cm, 09/21/19 12:01:00 ESTLaurie... Start Date: 12/06/19 Status: Ordered Claritin 10 mg oral tablet 10 mg, 1, tablet, By Mouth, Daily, for 30 days, # 30 tablet, Refills 11, Tot. Refills 11, Acute 05/11/20 17:36:41 EDT, 05/17/19 17:36:41 EDT, [id number] [address] Start Date: 05/17/19 Stop Date: 05/11/20 Status: Ordered colchicine 0.6 mg oral tablet See Instructions, take 1 tablet by mouth once daily if needed for PSEUDOGOUT pain, # 30 tablet, Refills 5, Tot. Refills 5, Soft Stop, 01/05/20 8:41:00 EDT, Instructions Replace Required Details, Route to Pharmacy Electronically, [facility] #... Start Date: 01/05/20 Status: Ordered Disposable [...] 04/27/20 15:15:00 EDT, 04/20/20 15:15:00 EDT, Capsule, [facility][id number], 165, cm, 02/03/20 14:39:00 EDT, Height, 127, [...] Gm, 1 Refills, Maintenance, 12/20/19 16:30:00 EDT, [facility] #[id number], 162, cm, 09/21/19 12:01:00 EST, Height, 116.4, [...] mL, 5 Refills, Maintenance, 10/01/18 10:08:42 EST, [place], 2 sprays Nares, Both 2 times a [...] 04/27/20 16:20:00 EDT, 04/17/20 16:20:00 EDT, Capsule, [facility] #[id number], 165, cm, 02/03/20 14:39:00EDT, Height, 127, kg, 02/03/20 14:39:00 EDT, Dry We... Start Date: 04/17/20 Stop Date: 04/27/20 Status: Ordered metoprolol 25 mg oral tablet 25 mg, 1, tablet, By Mouth, 2 times a day, # 60 tablet, Refills 5, Tot. Refills 5, Maintenance, 03/22/20 16:34:00 EDT, Route to Pharmacy Electronically, [facility] #[id number], 165, cm, 02/02/2014:39:00 EDT, Height, 127, kg, [...] 0 Refills, Maintenance, 04/23/20 12:56:00 EDT, Tablet, [facility] #[id number], 04/24/20, 165, cm, 02/03/20 14:39:00 EDT, He... 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
--- OUTSIDE RECORDS SUMMARY | 2024-01-02 21:15 | XMS_ITS | Continuity of Care Document ---
Author Organization [facility] Address [address] [place] [address]- Care Team Providers Care Airset Caster Name Role Phone Eulogio Nickerson MD Primary Care Physician [phone] Encounter [facility] [place] Date(s): 12/06/21 - 02/16/[address] [address] Attending Physician: Ashu Zavaleta DO Admitting Physician: Ashu Zavaleta DO Referring Physician: Ashu Zavaleta DO Allergies, Adverse Reactions, Alerts Substance Reaction Severity Status Adhesive Bandage Active Dust copd exac/sinus congestion A ctive Immunizations Given and Recorded Vaccine Date Status Refusal Reason SARS-CoV-2 mRNA (wxetkpj-cvdr-icijv) vax 08/30/21 Recorded influenza virus vaccine, inactivated [...] Jarrett rded SARS-CoV-2 (COVID-19) mRNA BNT-162b2 vac 6/9/21 Recorded SARS-CoV-2 (COVID-19) mRNA BNT-162b2 vac 12/02/20 Recorded Fluvirin (oldterm) 7 03/22/15 Given Fluzone Preservative-Free (oldterm) 8 03/12/12 Giv en pneumococcal 23-valent vaccine 10/08/11 Given tetanus/diphtheria/pertussis, acel(Tdap) 09/08/11 Given tetanus/diphtheria/pertussis, acel(Tdap) 12/17/06 Recorded influ virus vac, H1N1, inactive(oldterm) 9 05/08/11 Given hepatitis B adult vaccine 06/14/02 Recorded 1Result Comment: [id number] 2Result Comment: [id number] 3Result Comment: [id number] 4Result Comment: [07/08/2017] [id number] 5Admin Note: [facility] 6Admin Note: [facility] [...] 8.5 Gm, 5 Refills, 05/29/21 17:13:00 EDT, [facility] #[id number], 17, INHALE 2 PUFFS BY MOUTH EVERY [...] 0 Refills, Maintenance, 01/11/22 7:25:00 EDT, Capsule, [facility], Partial fill upon patient request if the prescription is for a schedule II opioid drug., 159, cm, 01/11/22 6:35:0... Start Date: 01/11/22 Stop Date: 02/10/22 Status: Ordered cloNIDine 0.1 mg oral tablet See Instructions, TAKE 1 TABLET BY MOUTH TWICE A DAY NEEDED FOR FOR ANXIETY (VIAL), # 60 tablet,Refills 2, Instructions Replace Required Details, Route to Pharmacy Electronically, [facility], 159, cm, 01/11/22 15:15:00 EDT, Height, 98.8, k... Start Date: 02/07/22 Status: Ordered colchicine 0.6 mg oral tablet 0.6 mg, 1, tablet, By Mouth, Daily, # 30 tablet, Refills 11, Tot. Refills 11, Maintenance, :00:00 EDT, Route to Pharmacy Electronically, [facility], Partial fill upon patient request [...] 01/11/22 7:25:00 EDT, Route to Pharmacy Electronically, [facility], Partial fill upon patient request if the prescri... Start Date: 01/11/22 Stop Date: 02/10/22 Status: Ordered duloxetine 20 mg oral enteric coated capsule 2 capsule = 40 mg, By Mouth, Daily at bedtime, # 60 capsule, 11 Refills, Maintenance, 06/25/21 12:00:00 EST, Capsule, [facility], Partial fill upon patient request [...] Replace Required Details, Route to Pharmacy Electronically, [facility], 165, cm, 06/25/21 11:35:00 EST, [...] 12/11/21 13:41:00 EDT, Route to Pharmacy Electronically, [facility], Partial fill upon patient requestif the [...] 03/05/22 16:36:00 EDT, 12/03/21 16:35:00 EDT, Gum, [facility] #[id number], Partial fill uponpatient request if the prescription is for a schedu... Start Date: 12/03/21 Stop Date: 03/05/22 Status: Ordered pantoprazole 40 mg oral delayed [...] CELLULITIS PROPHYLAXIS., # 60 tablet, 6 Refills, [facility], 165, cm, 11/08/21 10:02:00 EDT, Height, 127, kg, 02/03/20 14:39:00 EDT, Dry Weight Start Date: 11/15/21 Status: Ordered rOPINIRole 0.5 mg oral tablet 1 tablet, By Mouth, 3 times a day, # 90 tablet, 5 Refills, 11/08/21 9:01:00 EDT, [facility], 165, cm, 11/04/21 8:42:00 EDT, Height, 127, kg, 02/03/20 14:39:00 EDT, Dry Weight Start Date: 11/08/21 Status: Ordered rosuvastatin 10 mg oral tablet See Instructions, TAKE 1 TABLET BY MOUTH DAILY, # 90 tablet, 1 Refills, Maintenance, 10/18/21 21:30:00 EDT, [facility], 165, cm, 09/04/21 14:01:00 EST, Height, [...] Replace Required Details, Route to Pharmacy Electronically, [id number], [facility], 159, cm, 01/11/22 15:15:00 EDT... Start Date: 02/13/22 Status: Ordered warfarin 1 mg oral tablet See Instructions, Take 1-10 tablets By Mouth Daily as directed by THOM, # 150 tablet, 0 Refills, Maintenance, 01/11/22 7:24:00 EDT, Tablet, [facility], Partial fill upon patient requestif the [...] use(Confirmed) Active Gastric banding status(Confirmed) Active senior care current use of 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
--- OUTSIDE RECORDS SUMMARY | 2024-01-02 21:15 | XMS_ITS | Continuity of Care Document ---
Author Organization [facility] Buck Nolberto Address [address] [place] [address]- Care Team Providers Care Ocean Export Coordinator Name Role Phone Krishan GRIDER, Eulogio Molina Primary Care Physician [phone] Encounter [facility] Date(s): 05/29/22 - 06/28/22 [facility] Adult [address] [place] [address]- Allergies, Adverse Reactions, Alerts Substance Reaction Severity [...] vaccine, inactivated 05/10/07 Jarrett rded SARS-CoV-2 mRNA ([id number]) vax 08/30/21 Recorded SARS-CoV-2 (COVID-19) mRNA BNT-162b2 vac 01/02/21 Recorded SARS-CoV-2 (COVID-19) mRNA BNT-162b2 vac 12/02/20 Recorded Fluvirin (oldterm) 8 03/22/15 Given Fluzone Preservative-Free (oldterm) 9 03/12/12 Giv en pneumococcal 23-valent vaccine 10/08/11 Given tetanus/diphtheria/pertussis, acel(Tdap) 09/08/11 Given tetanus/diphtheria/pertussis, acel(Tdap) 12/17/06 Recorded influ virus vac, H1N1, inactive(oldterm) 10 05/08/11 Given hepatitis B adult vaccine 06/14/02 Recorded 1Result Comment: [id number] 2Result Comment: [id number] 3Result Comment: [id number] 4Result Comment: [id number] 5Result Comment: [07/08/2017] [id number] 6Admin Note: [facility] 7Admin Note: [facility] [...] Gm, 4 Refills, Maintenance, 04/28/22 13:11:00 EDT, [facility], 17, INHALE 2 PUFFS BY MOUTH EVERY FOUR HOURS NEEDED FOR WHEEZING... Start Date: 04/28/22 Status: Ordered cloNIDine 0.1 mg oral tablet See Instructions, TAKE 1 TABLET BY MOUTH TWICE A DAY NEEDED FOR FOR ANXIETY (VIAL), # 60 tablet,Refills 1, Maintenance, 04/28/22 13:11:00 EDT, Instructions Replace Required Details, Route to Pharmacy Electronically, [facility], 159, cm, 06... Start Date: 04/28/22 Status: Ordered colchicine 0.6 mg oral tablet 0.6 mg, 1, tablet, By Mouth, Daily, # 30 tablet, Refills 11, Tot. Refills 11, Maintenance, 227:00:00 EDT, Route to Pharmacy Electronically, [facility], Partial fill upon patient request if the prescription is for a schedule II opioid dr... Start Date: 10/30/21 Status: Ordered digoxin 0.125 mg oral tablet 1, tablet, By Mouth, Daily, # 90 tablet, Refills 0, Maintenance, 05/29/22 6:33:00 EDT, Route to Pharmacy Electronically, [facility], 159, cm, 05/05/22 11:32:00 EDT, Height, 98.8, kg, 229:12:00 EDT, Dry Weight Start Date: 05/29/22 Status: Ordered docusate sodium 100 mg oral capsule 100 mg, 1, capsule, By Mouth, 2 times a day, hold for loose stool, # 60 capsule, Refills 0, Tot. Refills 0, Maintenance, 01/11/22 7:25:00 EDT, Route to Pharmacy Electronically, [facility], Partial fill upon patient request if the prescri... Start Date: 01/11/22 Stop Date: 02/10/22 Status: Ordered duloxetine 20 mg oral enteric coated capsule 2 capsule = 40 mg, By Mouth, Daily at bedtime, # 60 capsule, 11 Refills, Maintenance, 06/25/21 12:00:00 EST, Capsule, [facility], Partial fill upon patient request [...] Replace Required Details, Route to Pharmacy Electronically, [facility], 165, cm, 06/25/21 11:35:00 EST, Height, 127, kg, 02/03/20 14:39:00 EDT, Dry Weight Start Date: 08/05/21 Status: Ordered penicillin V potassium 250 mg oral tablet 1 tablet, By Mouth, 2 times a day, CELLULITIS PROPHYLAXIS., # 60 tablet, 5 Refills, Maintenance, 05/29/22 6:19:00 EDT, [facility], 159, cm, 05/05/22 11:32:00 EDT, Height, 98.8, kg, 01/10/22 9:12:00 EDT, Dry Weight Start Date: 05/29/22 Status: Ordered rOPINIRole 0.5 mg oral tablet 1 tablet, By Mouth, 3 times a day, # 90 tablet, 5 Refills, 03/07/22 6:14:00 EDT, [facility], 159, cm, 01/11/22 15:15:00 EDT, Height, 98.8, kg, 01/10/22 9:12:00 EDT, Dry Weight Start Date: 03/07/22 Status: Ordered rosuvastatin 10 mg oral tablet See Instructions, TAKE 1 TABLET BY MOUTH DAILY, # 90 tablet, 1 Refills, Maintenance, 04/04/22 11:35:00 EDT, [facility], 159, cm, 01/11/22 15:15:00 EDT, Height, 98.8, kg, 01/10/22 9:12:00 EDT,Dry Weight Start Date: 04/04/22 Status: Ordered Symbicort 80mcg/4.5mcg Inhaler See Instructions, INHALE 2 PUFFS BY MOUTH TWICE A DAY RINSE MOUTH AND THROAT AFTER USE, # 10.2 Gm, Refills 5, Instructions Replace Required Details, Route to Pharmacy Electronically, [facility]_[id number], [facility], 159, cm, 01/11/22 15:15:00 EDT... Start Date: 02/13/22 Status: Ordered warfarin 1 mg oral tablet See Instructions, Take 1-10 tablets By Mouth Daily as directed by THOM, # 150 tablet, 0 Refills, Maintenance, 01/11/22 7:24:00 EDT, Tablet, [facility], Partial fill upon patient [...] Confirmed Active Gastric banding status Confirmed Active rn long term care current use of opiate analgesic Confirmed Active [...] Team Personnel Name: Sandra Wills NP Position: [facility] Associate Professional Member Role: Primary Care Nurse Address: Address: [address] [place] [address] [place] [address]- [place] Name: Marley Alejo RN Position: [facility] ED RN W/OE and Tasks Member Role: Primary Care Nurse Name: Eulogio Nickerson MD Position: [facility] Primary Care Physician Member Role: PCP Address: Address: [address] [place] [address]- [place] Name: Alma Delia Fonseca PharmD Position: [facility] Associate Professional Member Role: Lifetime Consulting Provider Address: Address: [address] [place] [address] [place] [address]- [place] Name: Yolis Mattson RN Position: [facility] RN Member Role: Primary Care Nurse Name: Priscila Garzon RN Position: [facility] RN Member Role: Primary Care Nurse Care Team Related Persons Name: FAUZIA JANSEN Address: home [address] [place] [address] Name: ANDRA JANSEN Address: home [address] [place] [address] Name: AURELIA SHETH Address: home [address] [place] [address] Name: BRE OSORIO Address: home [address] [place] [address]
--- OUTSIDE RECORDS SUMMARY | 2024-01-02 21:15 | XMS_ITS | Continuity of Care Document ---
Author Organization [facility] Robin Jane Nolberto Address [address] [place] [address]- Care Team Providers Care Pasta Maker Name Role Phone Kyle Ahumada DO Primary Care Physician Encounter [facility] Date(s): 12/02/23 - 01/01/24 [facility] Robin Bolañosley Adult [address] [place] [address]- Allergies, Adverse Reactions, Alerts Substance Reaction Severity [...] 07/08/17 Gi octavio influenza virus vaccine, inactivated 04/01/17 Gi octavio influenza virus vaccine, inactivated 08/12/16 Jarrett rded influenza virus vaccine, inactivated 05/23/14 Give n influenza virus vaccine, inactivated 9 06/07/13 Gi octavio influenza virus vaccine, inactivated 04/09/11 Jarrett rded influenza virus vaccine, inactivated 03/18/10 Jarrett rded influenza virus vaccine, inactivated 04/21/09 Jarrett rded influenza virus vaccine, inactivated 06/19/08 Jarrett rded influenza virus vaccine, inactivated 05/10/07 Jarrett rded SARS-CoV-2 mRNA ([id number]) vax 08/30/21 Recorded SARS-CoV-2 (COVID-19) mRNA BNT-162b2 vac 01/02/21 Recorded SARS-CoV-2 (COVID-19) mRNA BNT-162b2 vac 12/02/20 Recorded Fluvirin (oldterm) 10 03/22/15 Given Fluzone Preservative-Free (oldterm) 11 03/12/12 Gi octavio pneumococcal 23-valent vaccine 10/08/11 Given tetanus/diphtheria/pertussis, acel(Tdap) 09/08/11 Given tetanus/diphtheria/pertussis, acel(Tdap) 12/17/06 Recorded influ virus vac, H1N1, inactive(oldterm) 12 05/08/11 Given hepatitis B adult vaccine 06/14/02 Recorded 1Result Comment: PCV 20 [facility]#[id number] 2Result Comment: Flu [facility]#[id number] 3Result Comment: [id number] 4Result Comment: [id number] 5Result Comment: [id number] 6Result Comment: [id number] 7Result Comment: [07/08/2017] 88160-529-33 8Admin Note: [facility] 9Admin Note: [facility] 9-13 10Admin Note: Given at [facility] 11Admin Note: 03-11-12 GIVEN AT [facility] 12Admin Note: rcvd elsewhere Medications acetaminophen 325 mg oral tablet 2, tablet, By Mouth, Every 6 hours, PRN, # 100 tablet, Refills 5, Maintenance, NEEDED FOR MODERATE PAIN (VIAL), 09/14/23 15:41:00 EST, [email or web address], [facility], cm, 07/07/23 15:02:00 EST, Height, 112.4, kg, 06/24/23... Start Date: 09/14/23 Status: Ordered Albuterol (Eqv-ProAir HFA) 90 mcg/inh inhalation aerosol 2 puffs, Inhalation, Every 4 hours, PRN NEEDED FOR WHEEZING OR FOR SHORTNESS OF BREATH (BULK), #8.5 Gm, 5 Refills, Maintenance, 12/25/23 11:38:00 EDT, [facility], 16, INHALE 2 PUFFS BY MOUTH EVERY 4 HOURS NEEDED FOR WHEEZING OR FOR SHOR... Start Date: 12/25/23 Status: Ordered Alcohol Pads See Instructions, # [...] 10/07/23 15:53:00 EDT, [email or web address], 160, cm, 07/07/2315:02:00 EST, Height, 112.4, kg, 06/24/23 17:38:00... Start Date: 10/07/23 Status: Ordered docusate sodium 100 mg oral capsule 100 mg, 1, capsule, By Mouth, 2 times a day, hold for loose stool, # 180 capsule, Refills 3, Tot. Refills 3, Maintenance, 03/13/23 16:56:00 EDT, Route to Pharmacy Electronically, [facility], Partial fill upon patient request if the prescriptio... Start Date: 03/13/23 Stop Date: 04/12/23 Status: Ordered duloxetine 20 mg oral enteric coated capsule 2 capsule = 40 mg, By Mouth, Daily at bedtime, # 60 capsule, 11 Refills, Maintenance, 06/25/21 12:00:00 EST, Capsule, [facility], Partial fill upon patient [...] Replace Required Details, [facility], 160, cm, 07/07/23 15:02:00 EST, Height,... Start Date: 07/28/23 Status: Ordered furosemide 40 mg oral tablet 40 mg, 1, tablet, By Mouth, Daily, # 90 tablet, Refills 1, Tot. Refills 1, Maintenance, 03/02/23 18:12:00 EDT, Route to Pharmacy Electronically, [facility], Partial fill upon patient request if the prescription is for a schedule II opioid drug... Start Date: 03/02/23 Status: Ordered gabapentin 300 mg oral capsule See Instructions, TAKE ONE CAPSULE BY MOUTH THREE TIMES A DAY ^1R1,1R3,1R4, # 90 capsule, Refills 2, Maintenance, 11/20/23 16:26:00 EDT, Instructions Replace Required Details, Route to Pharmacy Electronically, [facility], 160, cm, 11/12/23 13:... Start [...] mL, 11 Refills, Maintenance, 08/11/23 7:46:00 EST, [facility], 30, INSTILL 2 SPRAYS IN [...] 12/02/23 3:01:00 EDT, Route to Pharmacy Electronically, [facility], 160, cm, 11/12/23 13:36:00 EDT, Height, 112.4, kg, 06/24/23 17:38:00 EST, Dry Weight Start Date: 12/02/23 Status: Ordered metFORMIN 500 mg oral tablet 1 tablet = 500 mg, By Mouth, 2 times a day, # 60 tablet, 5 Refills, Maintenance, 01/03/24 15:26:00 EDT, Tablet, [facility], Partial fill upon patient request if the prescription is for a schedule II opioid drug., 160, cm, 11/12/23 13:36:00 EDT... Start Date: 01/03/24 Stop Date: 07/01/24 Status: Ordered metFORMIN 500 mg oral tablet 1 tablet = 500 mg, By Mouth, 2 times a day, for 30 days, # 60 tablet, 5 Refills, Hard Stop 01/02/2415:26:00 EDT, 07/07/23 15:26:00 EST, Tablet, [facility], Partial fill upon patient request if the prescription is for a schedule II opioid drug... Start Date: 07/07/23 Stop Date: 01/03/24 Status: Ordered nicotine 21 mg/24 hr transdermal film, extended release 1 patch, Topically, Daily, # 28 patch, 3 Refills, Maintenance, 09/14/23 15:41:00 EST, [facility], 28, APPLY 1 PATCH TOPICALLY DAILY, [...] tablet, 5 Refills, Maintenance, 08/19/23 10:06:00 EST, [facility], 160, cm, 07/07/23 15:02:00 EST, Height, 112.4, kg, 06/24/23 17:38:00 EST,Dry Weight Start Date: 08/19/23 Status: Ordered Rhinocort Allergy 32 mcg/inh nasal spray 2 sprays = 64 mcg, Nares, Both, Daily, # 8.43 mL, 5 Refills, Maintenance, 11/12/23 13:55:00 EDT, [place], [facility], Partial fill upon patient request if the prescription is for a schedule II opioid drug., 160, cm, 11/12/23 13:36:00 EDT, Height... Start Date: 11/12/23 Status: Ordered rOPINIRole 0.5 mg oral tablet 1 tablet, By Mouth, 3 times a day, ^1R1,1R3,1R4., # 90 tablet, 5 Refills, Maintenance, 10/11/23 20:09:00 EDT, [facility], 160, cm, 07/07/23 15:02:00 EST, Height, 112.4, kg, 06/24/23 17:38:00 EST, Dry Weight Start Date: 10/11/23 Status: Ordered rosuvastatin 10 mg oral tablet 1 tablet, By Mouth, Daily, ^1R1., # 30 tablet, 5 Refills, Maintenance, 12/02/23 3:01:00 EDT, [facility], 160, cm, 11/12/23 13:36:00 EDT, Height, 112.4, kg, 06/24/23 17:38:00 EST, Dry Weight Start Date: 12/02/23 Status: Ordered Symbicort 160mcg/4.5mcg Inhaler 2, puffs, Inhalation, 2 times a day, # 10.2 Gm, Refills 11, Tot. Refills 11, Maintenance, 06/03/23 11:47:00 EST, Aerosol, [id number], 160, cm, 06/03/23 11:30:00 EST, Height, 98.8, kg, ... Start Date: 06/03/23 Status: Ordered tiZANidine 4 mg oral capsule 1 capsule, By Mouth, 3 times a day, PRN NEEDED FOR SPASMS, CAN INCREASE TO 2 AT A TIME IF NEEDED(VIAL), # 90 capsule, 2 Refills, Maintenance, 12/26/23 22:28:00 EDT, [facility], 160, cm, 11/12/23 13:36:00 EDT, Height, 112.4, kg, 06/24/23 17... Start Date: 12/26/23 Status: Ordered Walker with seat and breaks Walker with seat and breaks, See Instructions, # 1 each, Refills 0, Tot. Refills 0, Maintenance, HT:5'3 WT:241.6Lbs MARILYN:lifetime Dx:Z91.81(risk of fall), 09/28/23 9:21:00 EST, Supply Start Date: 09/28/23 Status: Ordered Xarelto 20 mg oral tablet 1 tablet, By Mouth, Daily in PM, ^1R4., # 30 tablet, 5 Refills, Maintenance, 10/26/23 10:04:00 EDT,[facility], 160, cm, 10/16/23 10:41:00 EDT, Height, 112.4, kg, 06/24/23 17:38:00 EST, Dry Weight Start Date: 4/1/24 Status: Ordered Problem List Condition Confirmation Course [...] Team Personnel Name: Sandra Wills NP Position: [facility] PCO Associate Professional Member Role: Primary Care Nurse Address: Address: [address] [place] [address] [place] [address]- Name: Marley Alejo RN Position: S RN Member Role: Primary Care Nurse Name: Rashi Dewitt RN Position: S RN Member Role: Primary Care Nurse Name: Alma Delia Fonseca PharmD Position: S Associate Professional Member Role: Lifetime Consulting Provider Address: Address: [address] [place] [address] [place] [address]- [place] Name: Priscila Garzon RN Position: S RN Member Role: Primary Care Nurse Name: Kyle Ahumada DO Position: [facility] Physician - Primary Care Member Role: PCP Address: Address: [address] [place] [address]- Name: Renea Mart RN Position: [facility] RN Member Role: Primary Care Nurse Care Team Related Persons Name: FAUZIA JANSEN Address: home [address] [place] [address] Name: AURELIA SHETH Address: home [address] [place] [address] Name: BRE OSORIO Address: home [address] [place] [address]
--- OUTSIDE RECORDS SUMMARY | 2024-01-02 21:15 | XMS_ITS | Continuity of Care Document ---
Author Organization [facility] Nolberto Address [address] [place] [address]- Care Team Providers Care Respiratory Manager Name Role Phone Krishan GRIDER, Eulogio Molina Primary Care Physician Encounter [facility] Date(s): 12/25/21 - 01/24/22 [facility] Adult [address] [place] [address]- Allergies, Adverse Reactions, Alerts Substance Reaction Severity Status Adhesive Bandage Active Dust copd exac/sinus congestion A ctive Immunizations Given and Recorded Vaccine Date Status Refusal Reason SARS-CoV-2 mRNA ([id number]-[id number]) vax 08/30/21 Recorded influenza virus vaccine, inactivated [...] B adult vaccine 06/14/02 Recorded 1Result Comment: [id number] 2Result Comment: [id number] 3Result Comment: [id number] 4Result Comment: [07/08/2017] [id number] 5Admin Note: [facility] 6Admin Note: [facility] [...] 8.5 Gm, 5 Refills, 05/29/21 17:13:00 EDT, [id number], 17, INHALE 2 PUFFS BY MOUTH EVERY [...] 0 Refills, Maintenance, 01/11/22 7:25:00 EDT, Capsule, [facility], Partial fill upon patient request if the prescription is for a schedule II opioid drug., 159, cm, 01/11/22 6:35:0... Start Date: 01/11/22 Stop Date: 02/10/22 Status: Ordered cloNIDine 0.1 mg oral tablet See Instructions, TAKE 1 TABLET BY MOUTH TWICE A DAY NEEDED FOR FOR ANXIETY, # 60 tablet, Refills 0, Instructions Replace Required Details, Route to Pharmacy Electronically, [facility], 165, cm, 01/06/22 14:35:00 EDT, Height, 102.1, kg, ... Start Date: 01/09/22 Status: Ordered colchicine 0.6 mg oral tablet 0.6 mg, 1, tablet, By Mouth, Daily, # 30 tablet, Refills 11, Tot. Refills 11, Maintenance, :00:00 EDT, Route to Pharmacy Electronically, [facility], Partial fill upon patient request if [...] 01/11/22 7:25:00 EDT, Route to Pharmacy Electronically, [facility], Partial fill upon patient request if the prescri... Start Date: 01/11/22 Stop Date: 02/10/22 Status: Ordered duloxetine 20 mg oral enteric coated capsule 2 capsule = 40 mg, By Mouth, Daily at bedtime, # 60 capsule, 11 Refills, Maintenance, 06/25/21 12:00:00 EST, Capsule, [facility], Partial fill upon patient request if [...] Replace Required Details, Route to Pharmacy Electronically, [facility], 165, cm, 06/25/21 11:35:00 EST, Height, [...] 12/11/21 13:41:00 EDT, Route to Pharmacy Electronically, [facility], Partial fill upon patient requestif the [...] 03/05/22 16:36:00 EDT, 12/03/21 16:35:00 EDT, Gum, [id number], Partial fill uponpatient request if the prescription [...] # 60 tablet, 6 [facility]ills, [facility], [facility], cm, 11/08/21 10:02:00 EDT, Height, 127, kg, 02/03/20 14:39:00 EDT, Dry Weight Start Date: 11/15/21 Status: Ordered rOPINIRole 0.5 mg oral tablet 1 tablet, By Mouth, 3 times a day, # 90 tablet, 5 Refills, 11/08/21 9:01:00 EDT, [facility], [facility], cm, 11/04/21 8:42:00 EDT, Height, 127, kg, 02/03/20 14:39:00 EDT, Dry Weight Start Date: 11/08/21 Status: Ordered rosuvastatin 10 mg oral tablet See Instructions, TAKE 1 TABLET BY MOUTH DAILY, # 90 tablet, 1 Refills, Maintenance, 10/18/21 21:30:00 EDT, [facility], 165, cm, 09/04/21 14:01:00 EST, Height, [...] Electronically, [facility]... Start Date: 12/24/21 Status: Ordered warfarin 1 mg oral tablet See Instructions, Take 1-10 tablets By Mouth Daily as directed by THOM, # 150 tablet, 0 Refills, Maintenance, 01/11/22 7:24:00 EDT, Tablet, [facility], Partial fill upon patient requestif [...] long-term use(Confirmed) Active Gastric banding status(Confirmed) Active correction current use of 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
--- OUTSIDE RECORDS SUMMARY | 2024-01-02 21:15 | XMS_ITS | Continuity of Care Document ---
Author Organization [facility] Robin Jane Nolberto Address [address] [place] [address]- Care Team Providers Care Database Design Analyst Name Role Phone Kyle Ahumada DO Primary Care Physician Encounter [facility] Date(s): 02/27/23 - 03/29/23 [facility] Robin Bolañosley Adult [address] [place] [address]- Allergies, Adverse Reactions, Alerts Substance Reaction Severity [...] vaccine, inactivated 05/10/07 Jarrett rded SARS-CoV-2 mRNA (ievjxxa-pcil-nlnfw) vax 08/30/21 Recorded SARS-CoV-2 (COVID-19) mRNA BNT-162b2 vac 01/02/21 Recorded SARS-CoV-2 (COVID-19) mRNA BNT-162b2 vac 5/9/21 Recorded Fluvirin (oldterm) 8 03/22/15 Given Fluzone Preservative-Free (oldterm) 9 03/12/12 Giv en pneumococcal 23-valent vaccine 10/08/11 Given tetanus/diphtheria/pertussis, acel(Tdap) 09/08/11 Given tetanus/diphtheria/pertussis, acel(Tdap) 12/17/06 Recorded influ virus vac, H1N1, inactive(oldterm) 10 05/08/11 Given hepatitis B adult vaccine 06/14/02 Recorded 1Result Comment: [id number] 2Result Comment: [id number] 3Result Comment: [id number] 4Result Comment: [id number] 5Result Comment: [07/08/2017] [id number] 6Admin Note: [facility] 7Admin Note: [facility] 04-08 8Admin Note: Given at [facility] 9Admin Note: 03-11-12 GIVEN AT [facility] 10Admin Note: rcvd elsewhere Medications acetaminophen 325 mg oral tablet 650 mg, 2, tablet, By Mouth, Every 6 hours, PRN, # 100 tablet, Refills 1, Tot. Refills 1, Maintenance, Pain , Moderate, 03/13/23 16:59:00 EDT, Route to Pharmacy Electronically, [facility], Partial fill upon patient request if the prescription... Start Date: 03/13/23 Status: Ordered Albuterol (Eqv-ProAir HFA) 90 mcg/inh inhalation aerosol See Instructions, INHALE 2 PUFFS BY MOUTH EVERY FOUR HOURS NEEDED FOR WHEEZING OR SHORTNESS OF BREATH, # 8.5 Gm, 5 Refills, Maintenance, 03/13/23 9:55:00 EDT, [facility], 30, INHALE 2 PUFFS BY MOUTH [...] 03/12/23 15:30:00 EDT, Route to Pharmacy Electronically, [facility], 160, cm, 03/02/23 9:56:00 EDT, Height, 98.8, k... Start Date: 03/12/23 Status: Ordered cloNIDine 0.1 mg oral tablet 0.1 mg, 1, tablet, By Mouth, 2 times a day, PRN, # 60 tablet, Refills 2, Tot. Refills 2, Maintenance, Anxiety, 03/12/23 16:38:00 EDT, Route to Pharmacy Electronically, [facility], Partial fill upon patient request if the prescription is for a... Start Date: 03/12/23 Status: Ordered cyclobenzaprine 5 mg oral tablet 1 tablet = 5 mg, By Mouth, 3 times a day, # 45 tablet, 1 Refills, Maintenance, 03/03/23 9:27:00 EDT, Tablet, [facility], Partial fill upon patient request if the prescription is for a schedule II opioid drug., 160, cm, 03/02/23 9:56:00 EDT, He... Start Date: 03/03/23 Status: Ordered DilTIAZem (Eqv-Dilacor XR) 240 mg/24 hours oral capsule, extended release 1 capsule = 240 mg, By Mouth, Daily, # 90 capsule, 3 Refills, Maintenance, 03/13/23 17:04:00 EDT, CD Capsule, [facility], Partial fill upon patient request if the prescription is for a schedule II opioid drug., 160, cm, 03/02/23 9:56:00 EDT, H... Start Date: 03/13/23 Status: Ordered docusate sodium 100 mg oral capsule 100 mg, 1, capsule, By Mouth, 2 times a day, hold for loose stool, # 180 capsule, Refills 3, Tot. Refills 3, Maintenance, 03/13/23 16:56:00 EDT, Route to Pharmacy Electronically, [facility], Partial fill upon patient request if the prescriptio... Start Date: 03/13/23 Stop Date: 04/12/23 Status: Ordered duloxetine 20 mg oral enteric coated capsule 2 capsule = 40 mg, By Mouth, Daily at bedtime, # 60 capsule, 11 Refills, Maintenance, 06/25/21 12:00:00 EST, Capsule, [facility], Partial fill upon patient request if [...] 03/02/23 18:12:00 EDT, Route to Pharmacy Electronically, [facility], Partial fill upon patient request if the prescription is for a schedule II opioid drug... Start Date: 03/02/23 Status: Ordered ipratropium nasal 21 mcg/inh spray 2 sprays = 42 mcg, Nares, Both, 2 times a day, # 30 mL, 5 Refills, Maintenance, 03/13/23 16:58:00 EDT, Lily, [facility], Partial fill upon patient request if [...] 02/07/23 18:12:00 EDT, Route to Pharmacy Electronically, [facility], 160, cm, 12/16/22 10:46:00 EDT, Height, [...] 3 Refills, Maintenance, 03/13/23 17:03:00 EDT, Patch, [facility], Partial fill upon patient request if the prescription is for a schedule II opioid drug., 1 patch Topically Daily, 160, cm, 03/02/23 9:56:0... Start Date: 03/13/23 Status: Ordered penicillin V potassium 250 mg oral tablet 1 tablet = 250 mg, By Mouth, 2 times a day, CELLULITIS PROPHYLAXIS, # 60 tablet, 5 Refills, Maintenance, 11/06/22 17:25:00 EDT, Tablet, [facility], Partial fill upon patient request if the prescription is for a schedule II opioid drug., 160, c... Start Date: 11/06/22 Stop Date: 05/05/23 Status: Ordered rOPINIRole 0.5 mg oral tablet 1 tablet, By Mouth, 3 times a day, ^1R1,1R3,1R4., # 90 tablet, 5 Refills, Maintenance, 12/24/22 14:21:00 EDT, [facility], [facility], cm, 12/16/22 10:46:00 EDT, Height, 98.8, kg, 07/17/22 8:58:00 EST, Dry Weight Start Date: 12/24/22 Status: Ordered rosuvastatin 10 mg oral tablet 1 tablet, By Mouth, Daily, ^1R1., # 30 tablet, 5 Refills, Maintenance, 02/07/23 18:12:00 EDT, [facility], 160, cm, 12/16/22 10:46:00 EDT, Height, 98.8, kg, 07/17/22 8:58:00 EST, Dry Weight Start Date: 02/07/23 Status: Ordered Symbicort 80mcg/4.5mcg Inhaler See Instructions, INHALE 2 PUFFS BY MOUTH TWICE A DAY RINSE MOUTH AND THROAT AFTER USE, # 10.2 Gm, Refills 5, Tot. Refills 5, Maintenance, 03/13/23 10:13:00 EDT, Instructions Replace Required Details, Route to Pharmacy Electronically, [id number]... Start Date: 03/13/23 Status: Ordered Xarelto 20 mg oral tablet 1 tablet = 20 mg, By Mouth, Daily at supper, # 90 tablet, 1 Refills, Maintenance, 03/02/23 18:12:00EDT, Tablet, [facility], pt was rx'd w diltiazem on [...] Team Personnel Name: Sandra Wills NP Position: S PCO Associate Professional Member Role: Primary Care Nurse Address: Address: [address] [facility] [place] [place] [address]- [place] Name: Marley Alejo RN Position: [facility] RN Member Role: Primary Care Nurse Name: Alma Delia Fonseca PharmD Position: [facility] Associate Professional Member Role: Lifetime Consulting Provider Address: Address: [address] [facility] [place] [address]- [place] Name: Yolis Mattson RN Position: [facility] RN Member Role: Primary Care Nurse Name: Priscila Garzon RN Position: [facility] RN Member Role: Primary Care Nurse Name: Kyle Ahumada DO Position: [facility] Physician - Primary Care Member Role: PCP Address: Address: [address] [place] [address]- [place] Name: Renea Mart RN Position: [facility] RN Member Role: Primary Care Nurse Care Team Related Persons Name: FAUZIA JANSEN Address: home [address] [place] [address] Name: AURELIA SHETH Address: [address] [place] [address] Name: BRE OSORIO Address: home [address] [place] [address]
--- OUTSIDE RECORDS SUMMARY | 2024-01-02 21:15 | XMS_ITS | Continuity of Care Document ---
Author Organization [facility] Robin Jane Nolberto lt Address [address] [place] [address]- Care Team Providers Care Cut Off Saw Grader Name Role Phone Radha GRIDER, Fuentes Kenny Primary Care Physician [phone] [facility] Date[facility] 06[facility]20 - 07/19/20 [facility] Adult [address] [place] [address]- Allergies, Adverse Reactions, Alerts Substance Reaction Severity [...] H1N1, inactive(oldterm) 8 05/08/11 Given 1Result Comment: [id number] 2Result Comment: [id number] 3Result Comment: [07/08/2017] [id number] 4Admin Note: [facility] 5Admin Note: [facility] [...] 5 Refills, Maintenance, 07/03/20 9:16:00 EST, Cream, [facility] #[id number], Partial fill upon patient request if the [...] 06/04/20 12:56:00 EST, Route to Pharmacy Electronically, [facility] #[id number], please schedule appt for further refills, 165, cm, 05/16/20 14:15:00 EDT, Hei... Start Date: 06/04/20 Status: Ordered colchicine 0.6 mg oral tablet See Instructions, take 1 tablet by mouth once daily if needed for PSEUDOGOUT pain, # 30 tablet, Refills 5, Tot. Refills 5, Soft Stop, 01/05/20 8:41:00 EDT, Instructions Replace Required Details, Route to Pharmacy Electronically, [facility] #... Start Date: 01/05/20 Status: Ordered Disposable [...] Gm, 3 Refills, Maintenance, 06/22/20 14:58:00 EST, [facility] #[id number], 165, cm, 06/07/20 13:52:00 EST, Height, 127, [...] mL, 5 Refills, Maintenance, 10/01/18 10:08:42 EST, [place], 2 sprays Nares, Both 2 times a [...] tablet, 1 Refills, Maintenance, 07/12/20 13:56:00 EST, [facility] #[id number], Partial fill upon patient request if the prescription is for a schedule II opioid drug., 165, cm, 07/11/20 15:24:00 EST,... Start Date: 07/12/20 Stop Date: 07/05/21 Status: Ordered metoprolol 25 mg oral tablet 25 mg, 1, tablet, By Mouth, 2 times a day, # 60 tablet, Refills 5, Tot. Refills 5, Maintenance, 03/22/20 16:34:00 EDT, Route to Pharmacy Electronically, [facility] #[id number], 165, cm, 02/02/2014:39:00 EDT, Height, 127, kg, [...] 0 Refills, Maintenance, 06/18/20 16:57:00 EST, Patch, [facility] #[id number], Partial fill upon patient request, 165, cm, 06/07/20 13:52:00 EST, Height, 127, kg, 02/03/20 14:39:00 EDT, Dry Weight Start Date: 06/18/20 Stop Date: 07/30/20 Status: Ordered NuLYTELY with Flavor Packs oral powder for reconstitution See Instructions, Drink 240mL every 15-20 minutes until first half is gone. Repeat 6 hours prior toprocedure., # 4,000 mL, 0 Refills, Maintenance, 06/28/20 17:09:00 EST, [facility] #[id number],Partial fill upon patient request if the prescript... Start Date: 06/28/20 Status: Ordered oxyCODONE 10 mg oral tablet 1 tablet = 10 mg, By Mouth, Every 8 hours, DX Z79.891 G89.29 M47.816 OK TO FILL LESS THAN PRESCRIBED AMOUNT, # 84 tablet, 0 Refills, Maintenance, 07/16/20 17:18:00 EST, Tablet, [facility] #[id number], 07/17/20, 165, cm, 07/11/20 15:24:00 EST, He... [...] 5 Refills, Maintenance, 04/30/20 15:13:00 EDT, Tablet, [facility] #[id number], 165, cm, 04/30/20 14:30:00 EDT, Height, 127, kg, 02/03/20 14:39:00 EDT, Dry Weight Start Date: 04/30/20 Status: Ordered rosuvastatin 10 mg oral tablet 1 tablet = 10 mg, By Mouth, Daily, # 90 tablet, 3 Refills, Maintenance, 05/03/20 16:35:00 EDT, Tablet, [facility] #[id number], d/c rx for capsules, 165, cm, 04/30/20 14:30:00 EDT, Height, 127, kg, 02/03/20 14:39:00 EDT, Dry Weight Start Date: 05/03/20 Status: Ordered Ventolin HFA 108 mcg/inh inhalation aerosol with adapter 2 puffs, Inhalation, Every 4 hours, PRN Wheezing/Shortness of Breath, # 1 each, 11 Refills, Soft Stop, 01/19/20 11:46:00 EDT, [facility] #[id number], 165, cm, 01/16/20 6:17:00 EDT, Height, 128.1, kg, 01/16/20 6:17:00 EDT, Dry Weight Start Date: 01/19/20 Status: Ordered warfarin 5 mg oral tablet 1 tablet = 5 mg, By Mouth, Daily, dosing subject to change pending inr lab values, # 30 tablet, 5 Refills, Maintenance, 02/15/20 13:21:00 EDT, Tablet, [facility] #[id number], 165, cm, 02/03/20 14:39:00 EDT, Height, 127, [...]
--- OUTSIDE RECORDS SUMMARY | 2024-01-02 21:16 | XMS_ITS | Continuity of Care Document ---
Author Organization [facility] Roibn Jane Nolberto Address [address] [place] [address]- Care Team Providers Care Product Steward Name Role Phone Kyle Ahumada DO Primary Care Physician [phone] [facility]counter [facility] Date(s): 07/01/23 - 07/31/23 [facility] Robin Bolañosley Adult [address] [place] [address]- Allergies, Adverse Reactions, Alerts Substance Reaction Severity [...] vaccine, inactivated 05/10/07 Jarrett rded SARS-CoV-2 mRNA ([id number]) vax 08/30/21 Recorded SARS-CoV-2 (COVID-19) mRNA BNT-162b2 vac 01/02/21 Recorded SARS-CoV-2 (COVID-19) mRNA BNT-162b2 vac 12/02/20 Recorded Fluvirin (oldterm) 10 03/22/15 Given Fluzone Preservative-Free (oldterm) 11 03/12/12 Gi octavio pneumococcal 23-valent vaccine 10/08/11 Given tetanus/diphtheria/pertussis, acel(Tdap) 09/08/11 Given tetanus/diphtheria/pertussis, acel(Tdap) 12/17/06 Recorded influ virus vac, H1N1, inactive(oldterm) 12 05/08/11 Given hepatitis B adult vaccine 06/14/02 Recorded 1Result Comment: PCV [address] [facility]#[id number] 2Result Comment: Flu [facility]#[id number] 3Result Comment: [id number] 4Result Comment: [id number] 5Result Comment: [id number] 6Result Comment: [id number] 7Result Comment: [07/08/2017] [id number] 8Admin Note: [facility] 9Admin Note: [facility] 9-13 10Admin Note: Given at [facility] 11Admin Note: 03-11-12 GIVEN AT [facility] 12Admin Note: rcvd elsewhere Medications Albuterol (Eqv-ProAir HFA) 90 mcg/inh inhalation aerosol 2 puffs, Inhalation, Every 4 hours, PRN NEEDED FOR WHEEZING OR FOR SHORTNESS OF BREATH (BULK), #8.5 Gm, 5 Refills, Maintenance, 07/25/23 11:45:00 EST, [facility], 17, INHALE 2 PUFFS BY MOUTH EVERY 4 HOURS NEEDED FOR WHEEZING OR FOR SHOR... Start Date: 07/25/23 Status: Ordered cloNIDine 0.1 mg oral tablet 1, tablet, By Mouth, 2 times a day, PRN, ANXIETY (VIAL., # 56 tablet, Refills 2, Maintenance, NEEDED, 07/25/23 11:44:00 EST, Route to Pharmacy Electronically, [facility], 160, cm, 07/07/2315:02:00 EST, Height, 112.4, kg, 06/24/23 17:38:00... Start Date: 07/25/23 Status: Ordered cyclobenzaprine 5 mg oral tablet 1 tablet, By Mouth, 3 times a day, PRN NEEDED, SPASM (VIAL., # 90 tablet, 2 Refills, Maintenance, 06/08/23 9:15:00 EST, [facility], 160, cm, 06/03/23 11:30:00 EST, Height, 98.8, kg, 07/17/22 8:58:00 EST, Dry Weight Start Date: 06/08/23 Status: Ordered docusate sodium 100 mg oral capsule 100 mg, 1, capsule, By Mouth, 2 times a day, hold for loose stool, # 180 capsule, Refills 3, Tot. Refills 3, Maintenance, 03/13/23 16:56:00 EDT, [facility], Partial fill upon patient request if the prescriptio... Start Date: 03/13/23 Stop Date: 04/12/23 Status: Ordered duloxetine 20 mg oral enteric coated capsule 2 capsule = 40 mg, By Mouth, Daily at bedtime, # 60 capsule, 11 Refills, Maintenance, 06/25/21 12:00:00 EST, Capsule, [facility], Partial fill upon patient [...] Replace Required Details, Route to Pharmacy Electronically, [facility], 160, cm, 07/07/23 15:02:00 EST, Height,... Start Date: 07/28/23 Status: Ordered furosemide 40 mg oral tablet 40 mg, 1, tablet, By Mouth, Daily, # 90 tablet, Refills 1, Tot. Refills 1, Maintenance, 03/02/23 18:12:00 EDT, Route to Pharmacy Electronically, [facility], Partial fill upon patient request if the prescription is for a schedule II opioid drug... Start Date: 03/02/23 Status: Ordered ipratropium nasal 21 mcg/inh spray 2 sprays = 42 mcg, Nares, Both, 2 times a day, # 30 mL, 5 Refills, Maintenance, 03/13/23 16:58:00 EDT, [place], [facility], Partial fill upon patient [...] 07/01/23 14:32:00 EST, Route to Pharmacy Electronically, [facility], 160, cm, 06/26/23 11:21:00 EST, Height, 112.4, kg, 06/24/23 17:38:00 EST, Dry Weight Start Date: 07/01/23 Status: Ordered metFORMIN 500 mg oral tablet 1 tablet = 500 mg, By Mouth, 2 times a day, # 60 tablet, 5 Refills, Maintenance, 07/07/23 15:26:00 EST, Tablet, [facility], Partial fill upon patient request if the prescription is for a schedule II opioid drug., 160, cm, 07/07/23 15:02:00 EST... Start Date: 07/07/23 Stop Date: 01/03/24 Status: Ordered nicotine 21 mg/24 hr transdermal film, extended release 1 patch, Topically, Daily, # 30 patch, 3 Refills, Maintenance, 06/08/23 9:15:00 EST, [facility], 30, APPLY 1 PATCH TOPICALLY DAILY, [...] tablet, 5 Refills, Maintenance, 04/10/23 16:03:00 EDT, [facility], 160, cm, 04/02/23 12:45:00 EDT, Height, 98.8, kg, 07/17/22 8:58:00 EST, Dry Weight Start Date: 04/10/23 Status: Ordered rOPINIRole 0.5 mg oral tablet 1 tablet, By Mouth, 3 times a day, ^1R1,1R3,1R4., # 90 tablet, 5 Refills, Maintenance, 05/09/23 20:56:00 EDT, [facility], 160, cm, 04/02/23 12:45:00 EDT, Height, 98.8, kg, 07/17/22 8:58:00 EST, Dry Weight Start Date: 05/09/23 Status: Ordered rosuvastatin 10 mg oral tablet 1 tablet, By Mouth, Daily, ^1R1., # 30 tablet, 5 Refills, Maintenance, 07/01/23 14:33:00 EST, [facility], 160, cm, 06/26/23 11:21:00 EST, Height, 112.4, kg, 06/24/23 17:38:00 EST, Dry Weight Start Date: 07/01/23 Status: Ordered Symbicort 160mcg/4.5mcg Inhaler 2, puffs, Inhalation, 2 times a day, # 10.2 Gm, Refills 11, Tot. Refills 11, Maintenance, 06/03/23 11:47:00 EST, Aerosol, Route to Pharmacy Electronically, [id number], [facility], 160, cm, 06/03/23 11:30:00 EST, Height, 98.8, kg, ... Start Date: 06/03/23 Status: Ordered Xarelto 20 mg oral tablet 1 tablet = 20 mg, By Mouth, Daily at supper, # 90 tablet, 1 Refills, Maintenance, 03/02/23 18:12:00EDT, Tablet, [facility], pt was rx'd w diltiazem on [...] Confirmed Active Gastric banding status Confirmed Active care home current use of opiate analgesic Confirmed Active [...] Cigarettes; Other: 1 pack daily; entered on: 9/24/18 Sex Female Patient Care team information Care Team Personnel Name: Sandra Wills NP Position: [facility] PCO Associate Professional Member Role: Primary Care Nurse Address: Address: [address] [facility] [place] [address]- [place] Name: Marley Alejo RN Position: S RN Member Role: Primary Care Nurse Name: Rashi Dewitt RN Position: S RN Member Role: Primary Care Nurse Name: Alma Delia Fonseca PharmD Position: [facility] Associate Professional Member Role: Lifetime Consulting Provider Address: Address: [address] [facility] [place] [address]- [place] Name: Yolis Mattson RN Position: [facility] RN Member Role: Primary Care Nurse Name: Priscila Garzon RN Position: [facility] RN Member Role: Primary Care Nurse Name: Kyle Ahumada DO Position: [facility] Physician - Primary Care Member Role: PCP Address: Address: [address] [place] [address]- [place] Name: Renea Mart RN Position: [facility] RN Member Role: Primary Care Nurse Care Team Related Persons Name: FAUZIA JANSEN Address: home [address] [place] [address] Name: AURELIA SHETH Address: home [address] [place] [address] Name: BRE OSORIO Address: home [address] [place] [address]
--- OUTSIDE RECORDS SUMMARY | 2024-01-02 21:16 | XMS_ITS | Continuity of Care Document ---
Author Organization [facility] Robin Jane Nolberto lt Address [address] [place] [address]- Care Team Providers Care Webbing Seamer Pound Net Name Role Phone Radha GRIDER, Fuentes Kenny Primary Care Physician [facility] Date(s): 09/06/20 - 10/06/20 [facility] Adult [address] [place] [address]- Allergies, Adverse Reactions, Alerts Substance Reaction Severity [...] H1N1, inactive(oldterm) 8 05/08/11 Given 1Result Comment: [id number] 2Result Comment: [id number] 3Result Comment: [07/08/2017] [id number] 4Admin Note: [facility] 5Admin Note: [facility] [...] 5 Refills, Maintenance, 07/03/20 9:16:00 EST, Cream, [facility] #[id number], Partial fill upon patient request if the [...] 06/04/20 12:56:00 EST, Route to Pharmacy Electronically, [facility] #[id number], please schedule appt for further refills, 165, cm, 05/16/20 14:15:00 EDT, Hei... Start Date: 06/04/20 Status: Ordered Claritin 10 mg oral tablet 10 mg, 1, tablet, By Mouth, Daily, for 90 days, # 90 tablet, Refills 3, Tot. Refills 3, Acute 07/28/21 15:22:00 EST, 08/02/20 15:22:00 EST, Route to Pharmacy Electronically, [facility] #[id number], 165, cm, 07/31/20 14:32:00 EST, Height, 127, kg,... Start Date: 08/02/20 Stop Date: 07/28/21 Status: Ordered colchicine 0.6 mg oral tablet See Instructions, take 1 tablet by mouth once daily if needed for PSEUDOGOUT pain, # 30 tablet, Refills 5, Tot. Refills 5, Soft Stop, 01/05/20 8:41:00 EDT, Instructions Replace Required Details, Route to Pharmacy Electronically, [facility] #... Start Date: 01/05/20 Status: Ordered Disposable [...] Gm, 3 Refills, Maintenance, 06/22/20 14:58:00 EST, [facility] #[id number], 165, cm, 06/07/20 13:52:00 EST, Height, 127, [...] mL, 5 Refills, Maintenance, 10/01/18 10:08:42 EST, [place], 2 sprays Nares, Both 2 times a [...] 08/02/20 16:13:00 EST, Route to Pharmacy Electronically, [facility] #[id number], D/C RX ON FILE FOR ABRAM, 165, [...] tablet, 1 Refills, Maintenance, 07/12/20 13:56:00 EST, [facility] #[id number], Partial fill upon patient request if the prescription is for a schedule II opioid drug., 165, cm, 07/11/20 15:24:00 EST,... Start Date: 07/12/20 Stop Date: 07/05/21 Status: Ordered metoprolol 25 mg oral tablet 25 mg, 1, tablet, By Mouth, 2 times a day, # 60 tablet, Refills 5, Tot. Refills 5, Maintenance, 09/22/20 13:59:00 EST, Route to Pharmacy Electronically, [facility] #[id number], 165, cm, 07/31/2113:32:00 EST, Height, 127, kg, [...] 0 Refills, Maintenance, 06/18/20 16:57:00 EST, Patch, [facility] #[id number], Partial fill upon patient request, 165, cm, 06/07/20 13:52:00 EST, Height, 127, kg, 02/03/20 14:39:00 EDT, Dry Weight Start Date: 06/18/20 Stop Date: 07/30/20 Status: Ordered NuLYTELY with Flavor Packs oral powder for reconstitution See Instructions, Drink 240mL every 15-20 minutes until first half is gone. Repeat 6 hours prior toprocedure., # 4,000 mL, 0 Refills, Maintenance, 06/28/20 17:09:00 EST, [facility] #[id number],Partial fill upon patient request if the prescript... Start Date: 06/28/20 Status: Ordered oxyCODONE 10 mg oral tablet 1 tablet = 10 mg, By Mouth, Every 8 hours, DX Z79.891 G89.29 M47.816 OK TO FILL LESS THAN PRESCRIBED AMOUNT, # 84 tablet, 0 Refills, Maintenance, 09/10/20 17:26:00 EST, Tablet, [facility] #[id number], 09/11/20, 165, cm, 07/31/20 14:32:00 EST, He... [...] 5 Refills, Maintenance, 04/30/20 15:13:00 EDT, Tablet, [facility] #[id number], 165, cm, 04/30/20 14:30:00 EDT, Height, 127, kg, 02/03/20 14:39:00 EDT, Dry Weight Start Date: 04/30/20 Status: Ordered rosuvastatin 10 mg oral tablet 1 tablet = 10 mg, By Mouth, Daily, # 90 tablet, 3 Refills, Maintenance, 05/03/20 16:35:00 EDT, Tablet, [facility] #[id number], d/c rx for capsules, 165, cm, 04/30/20 14:30:00 EDT, Height, 127, kg, 02/03/20 14:39:00 EDT, Dry Weight Start Date: 05/03/20 Status: Ordered Ventolin HFA 108 mcg/inh inhalation aerosol with adapter 2 puffs, Inhalation, Every 4 hours, PRN Wheezing/Shortness of Breath, # 1 each, 11 Refills, Soft Stop, 01/19/20 11:46:00 EDT, [facility] #[id number], 165, cm, 01/16/20 6:17:00 EDT, Height, 128.1, kg, 01/16/20 6:17:00 EDT, Dry Weight Start Date: 01/19/20 Status: Ordered warfarin 5 mg oral tablet 1 tablet = 5 mg, By Mouth, Daily, dosing subject to change pending inr lab values, # 30 tablet, 11 Refills, Maintenance, 08/31/20 15:36:00 EST, Tablet, [facility] #[id number], 165, cm, 07/31/20 14:32:00 EST, Height, 127, [...]
--- OUTSIDE RECORDS SUMMARY | 2024-01-02 21:16 | XMS_ITS | Continuity of Care Document ---
Author Organization [facility] Nolberto lt Address [address] [place] [address]- Care Team Providers Care Cuff Setter Name Role Phone Krishan GRIDER, Eulogio Molina Primary Care Physician Encounter [facility] Date(s): 09/04/21 - 10/04/21 [facility] Adult [address] [place] [address]- Attending Physician: Admtr, Allan8 Admitting Physician: AdmtrDesire Referring Physician: Admtr, Ar8 Allergies, Adverse Reactions, Alerts Substance Reaction Severity Status Adhesive Bandage Active Dust copd exac/sinus congestion A ctive Immunizations Given and Recorded Vaccine Date Status Refusal Reason SARS-CoV-2 mRNA (viqhezg-wiyx-gavoj) vax 08/30/21 Recorded influenza virus vaccine, inactivated [...] B adult vaccine 06/14/02 Recorded 1Result Comment: [id number] 2Result Comment: [id number] 3Result Comment: [id number] 4Result Comment: [07/08/2017] 70908-832-88 5Admin Note: [facility] 6Admin Note: [facility] [...] 8.5 Gm, 5 Refills, 05/29/21 17:13:00 EDT, [facility] #[id number], 17, INHALE 2 PUFFS BY MOUTH EVERY 4 HOURS NEEDED FOR WHEEZING OR SHORTNE... Start Date: 05/29/21 Status: Ordered calcipotriene 0.005% topical cream 1 application, Topically, 2 times a day, # 60 Gm, 11 Refills, Maintenance, 10/31/20 14:14:00 EDT, [facility] #[id number], Partial fill upon patient request if the prescription is for a schedule II opioid drug., 1 application Topically 2 ti... Start Date: 10/31/20 Status: Ordered chlorthalidone 25 mg oral tablet 1, tablet, By Mouth, Daily, # 90 tablet, Refills 3, Route to Pharmacy Electronically, [facility], 165, cm, 06/25/21 11:35:00 EST, Height, [...] Maintenance, 06/25/21 12:00:00 EST, Capsule, [facility], Partial fill upon patient request [...] Gm, 3 Refills, Maintenance, 06/22/20 14:58:00 EST, [facility] #[id number], 165, cm, 06/07/20 13:52:00 EST, Height, 127, [...] Details, Route to Pharmacy Electronically, [facility], [place]... Start Date: 09/05/21 Status: Ordered HydrOXYzine PRn , rare use, 0 Refills, Maintenance, 04/30/20 15:04:00 EDT Start Date: 04/30/20 Status: Ordered ipratropium nasal 21 mcg/inh spray 2 sprays, Nares, Both, 2 times a day, # 30 mL, 5 Refills, Maintenance, 10/01/18 10:08:42 EST, [place], 2 sprays Nares, Both 2 times a [...] Details, Route to Pharmacy Electronically, [facility], 165, cm, 06/25/21 11:35:00 EST, Height, [...] tablet, 6Refills, Maintenance, 05/21/21 11:19:00 EDT, Tablet, [facility], Partial fill upon patient request if the prescription is for a schedule II... Start Date: 05/21/21 Status: Ordered methenamine hippurate 1 gm oral tablet 1 tablet = 1 Gm, By Mouth, 2 times a day, # 60 tablet, 11 Refills, Maintenance, 12/10/21 14:00:00 EST, [facility], Partial fill upon patient request if the prescription is for a schedule II opioid drug., 165, cm, 02/28/21 14:22:00 EDT, Height,... Start Date: 07/05/21 Status: Ordered Mitigare 0.6 mg oral capsule 1 capsule, By Mouth, Daily, # 30 capsule, 11 Refills, Maintenance, 12/31/20 16:51:00 EDT, [facility] #[id number], 165, cm, 11/19/20 11:32:00 EDT, Height, 127, kg, 02/03/20 14:39:00 EDT, Dry Weight Start Date: 12/31/20 Status: Ordered penicillin V potassium 250 mg oral tablet 1 tablet = 250 mg, By Mouth, 2 times a day, Cellulitis prophylaxis, # 60 tablet, 11 Refills, Maintenance, 10/30/20 12:09:00 EDT, [facility] #[id number], 165, cm, 10/19/20 8:59:00 EDT, Height, 127, kg, 02/03/20 14:39:00 EDT, Dry Weight Start Date: 10/30/20 Status: Ordered propranolol 20 mg oral tablet 20 mg, 1, tablet, By Mouth, 2 times a day, Stop metoprolol, # 60 tablet, Refills 5, Tot. Refills 5,Maintenance, 09/05/21 6:13:00 EST, [facility] fill upon patient request if the prescription is for a... Start Date: 09/05/21 Status: Ordered risperiDONE 1 mg oral tablet take 1 tablet by mouth twice a day Start Date: 05/23/19 Status: Ordered rOPINIRole 0.5 mg oral tablet 1 tablet, By Mouth, 3 times a day, # 90 tablet, 3 Refills, [facility], 165, cm, 06/25/21 11:35:00 EST, Height, 127, kg, 02/03/20 14:39:00 EDT, Dry Weight Start Date: 07/09/21 Status: Ordered rosuvastatin 10 mg oral tablet 1 tablet = 10 mg, By Mouth, Daily, # 90 tablet, 1 Refills, Maintenance, 05/20/21 15:53:00 EDT, Tablet, [facility], d/c rx for capsules, 165, cm, [...] 6 Refills, Maintenance, 06/12/21 17:09:00 EST, Tablet, [facility], Dosing Subject To Change per INR Result per MD,165, cm, 05/21/21 10:54:00 EDT, Height, 127, kg, 07... Start Date: 06/12/21 Status: Ordered warfarin 5 mg oral tablet See Instructions, Dosing Subject To Change Per INR Result per MD, # 30 each, 6 Refills, Maintenance, 06/12/21 17:05:00 EST, Tablet, [facility], PLEASE GIVE BOTH 5MG TABLETS AND [...]
--- OUTSIDE RECORDS SUMMARY | 2024-01-02 21:16 | XMS_ITS | Continuity of Care Document ---
Author Organization [facility] Address [address] [place] [address], [address] [place] [address]- Care Team Providers Care Dry End Tester Name Role Phone Fuentes Garcia MD Primary Care Physician [phone] [facility]counter [facility] Date(s): 05/06/19 - 09/03/19 [facility] [address], [address] [place] [address]- Attending Physician: Not on Staff, Attending MD Referring Physician: Fuentes Garcia MD Allergies, [...] H1N1, inactive(oldterm) 7 05/08/11 Given 1Result Comment: [id number] 2Result Comment: [07/08/2017] [id number] 3Admin Note: [facility] 4Admin Note: [facility] - 5Admin Note: Given at [facility] 6Admin Note: 8-12 GIVEN AT [facility] 7Admin Note: rcvd [...] Maintenance, 07/18/19 9:13:00 EST, [facility] - [address] [place] [address], 162, cm, 05/23/19 11:50:00 EDT, Height, 116.4, kg, 05/04/19 11:52:00 EDT, Dry Weight Start Date: 07/18/19 Stop Date: 07/19/19 Status: Ordered chlorthalidone 25 mg oral tablet 25 mg, 1, tablet, By Mouth, Daily, # 30 tablet, Refills 2, Tot. Refills 2, Maintenance, 06/17/19 14:30:22 EST, Route to Pharmacy Electronically, [facility]- [id number], [facility] [address] [facility], please schedule appt for further refills Start Date: 06/17/19 Status: Ordered Claritin 10 mg oral tablet 10 mg, 1, tablet, By Mouth, Daily, for 30 days, # 30 tablet, Refills 11, Tot. Refills 11, Acute 05/11/20 17:36:41 EDT, 05/17/19 17:36:41 EDT, Route to Pharmacy Electronically, [id number], [facility] REIN[facility] [address] Start Date: 05/17/19 Stop Date: 05/11/20 [...] mL, 5 Refills, Maintenance, 10/01/18 10:08:42 EST, [place], 2 sprays Nares, Both 2 times a [...] 12/08/18 12:09:04 EDT, Route to Pharmacy Electronically, [id number], [facility] [address] [facility] Start Date: 12/08/18 Status: Ordered MiraLax oral [...] ST, 08/16/19, 162, cm, 05/23/19 11:50:00 EDT, Neil Start Date: 08/12/19 Status: Ordered OYSTER SHELL SHARIF-VIT D 500-400 See Instructions, # 300 tablet, take 1 tablet by mouth twice a day, [facility] Start Date: 05/17/19 Status: Ordered penicillin [...] NEEDED FOR WHEEZING - REPLACES [facility], AMEE[facility] [address] Start Date: 01/24/19 Status: Ordered Vitamin [...] long-term use(Confirmed) Active Gastric banding status(Confirmed) Active retirement current use of 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
--- OUTSIDE RECORDS SUMMARY | 2024-01-02 21:16 | XMS_ITS | Continuity of Care Document ---
Author Organization [facility] Address [address] [place] [address]- Care Team Providers Care Head Grinder Name Role Phone Eulogio Nickerson MD Primary Care Physician [phone] En[place] [facility] [place] [facility] [place](s): 11/08/21 - 11/15/21 [facility] [place] [address]- Encounter Diagnosis Chronic neck pain(Discharge Diagnosis) - 11/08/21 Headache(Discharge Diagnosis) - 11/08/21 Attending Physician: Andrea Gilbert DO Referring Physician: Eulogio Nickerson MD Allergies, Adverse Reactions, Alerts Substance Reaction Severity Status Adhesive Bandage Active Dust copd exac/sinus congestion A ctive Immunizations Given and Recorded Vaccine Date Status Refusal Reason SARS-CoV-2 mRNA (wtrqeqb-[id number]-smfef) vax 08/30/21 Recorded influenza virus vaccine, inactivated [...] B adult vaccine 06/14/02 Recorded 1Result Comment: [id number] 2Result Comment: [id number] 3Result Comment: [id number] 4Result Comment: [07/08/2017] [id number] 5Admin Note: [facility] 6Admin Note: [facility] [...] 8.5 Gm, 5 Refills, 05/29/21 17:13:00 EDT, [facility] #[id number], 17, INHALE 2 PUFFS BY MOUTH EVERY 4 HOURS NEEDED FOR WHEEZING OR SHORTNE... Start Date: 05/29/21 Status: Ordered calcipotriene 0.005% topical cream 1 application, Topically, 2 times a day, # 60 Gm, 11 Refills, Maintenance, 11/15/21 11:54:00 EDT, Cream, [facility], Partial fill upon patient request if the prescription is for a schedule IIopioid drug., 1 application Topically 2 times a day... Start Date: 11/15/21 Status: Ordered chlorthalidone 25 mg oral tablet 1, tablet, By Mouth, Daily, # 90 tablet, Refills 3, [facility], 165, cm, 06/25/21 11:35:00 EST, Height, 127, kg, 02/03/20 14:39:00 EDT, Dry Weight Start Date: 07/09/21 Status: Ordered colchicine 0.6 mg oral tablet 0.6 mg, 1, tablet, By Mouth, Daily, # 30 tablet, Refills 11, Tot. Refills 11, Maintenance, :00:00 EDT, [facility], Partial fill upon patient request if the prescription is for a schedule II opioid dr... Start Date: 10/30/21 Status: Ordered cyclobenzaprine 10 mg oral tablet See Instructions, PRN, 1 tablet By Mouth 3 times a day as needed, # 20 tablet, Refills 0, Tot. Refills 0, Maintenance, for spasm, 11/08/21 10:23:00 EDT, Instructions Replace Required Details, Route to Pharmacy Electronically, [id number]... Start Date: 11/08/21 Status: Ordered Disposable Absorbant Pads 23 x [...] 11 Refills, Maintenance, 06/25/21 12:00:00 EST, Capsule, [facility], Partial fill upon patient request if [...] Gm, 3 Refills, Maintenance, 06/22/20 14:58:00 EST, [facility] #[id number], 165, cm, 06/07/20 13:52:00 EST, Height, 127, [...] Replace Required Details, Route to Pharmacy Electronically, [facility], [place] Start Date: 09/05/21 Status: Ordered HydrOXYzine PRn , rare use, 0 Refills, Maintenance, 04/30/20 15:04:00 EDT Start Date: 04/30/20 Status: Ordered ipratropium nasal 21 mcg/inh spray 2 sprays, Nares, Both, 2 times a day, # 30 mL, 5 Refills, Maintenance, 10/01/18 10:08:42 EST, [place], 2 sprays Nares, Both 2 times a [...] Replace Required Details, Route to Pharmacy Electronically, [facility], 165, cm, 06/25/21 11:35:00 EST, Height, [...] tablet, 6Refills, Maintenance, 05/21/21 11:19:00 EDT, Tablet, [facility], Partial fill upon patient request if the prescription is for a schedule II... Start Date: 05/21/21 Status: Ordered methenamine hippurate 1 gm oral tablet 1 tablet = 1 Gm, By Mouth, 2 times a day, # 60 tablet, 11 Refills, Maintenance, 07/05/21 14:00:00 EST, [facility], Partial fill upon patient request if the prescription is for a schedule II opioid drug., 165, cm, 02/28/21 14:22:00 EDT, Height,... Start Date: 07/05/21 Status: Ordered Mitigare 0.6 mg oral capsule 1 capsule, By Mouth, Daily, # 30 capsule, 11 Refills, Maintenance, 12/31/20 16:51:00 EDT, [facility] #[id number], 165, cm, 11/19/20 11:32:00 EDT, Height, 127, kg, 02/03/20 14:39:00 EDT, Dry Weight Start Date: 12/31/20 Status: Ordered NuLYTELY with Flavor Packs oral powder for reconstitution 240 mL, By Mouth, Every 10 minutes, # 1 each, 0 Refills, Maintenance, 10/25/21 10:39:00 EDT, REC Powder, [facility], Partial fill upon patient request if the prescription is for a schedule IIopioid drug., 240 mL By Mouth Every 10 minutes, 165... Start Date: 10/25/21 Status: Ordered penicillin V potassium 250 mg oral tablet 1 tablet, By Mouth, 2 times a day, CELLULITIS PROPHYLAXIS., # 60 tablet, 6 Refills, [facility], 165, cm, 11/08/21 10:02:00 EDT, Height, 127, kg, 02/03/20 14:39:00 EDT, Dry Weight Start Date: 11/15/21 Status: Ordered propranolol 20 mg oral tablet 20 mg, 1, tablet, By Mouth, 2 times a day, Stop metoprolol, # 60 tablet, Refills 5, Tot. Refills 5,Maintenance, 09/05/21 6:13:00 EST, Route to Pharmacy Electronically, [facility], Partial fill upon patient request if the prescription is for a... Start Date: 09/05/21 Status: Ordered risperiDONE 1 mg oral tablet take 1 tablet by mouth twice a day Start Date: 05/23/19 Status: Ordered rOPINIRole 0.5 mg oral tablet 1 tablet, By Mouth, 3 times a day, # 90 tablet, 5 Refills, 11/08/21 9:01:00 EDT, [facility], 165, cm, 11/04/21 8:42:00 EDT, Height, 127, kg, 02/03/20 14:39:00 EDT, Dry Weight Start Date: 11/08/21 Status: Ordered rosuvastatin 10 mg oral tablet See Instructions, TAKE 1 TABLET BY MOUTH DAILY, # 90 tablet, 1 Refills, Maintenance, 10/18/21 21:30:00 EDT, [facility], 165, cm, 09/04/21 14:01:00 EST, Height, 127, kg, 02/03/20 14:39:00 EDT,Dry Weight Start Date: 10/18/21 Status: Ordered warfarin 2.5 mg oral tablet See Instructions, Dosing Subject To Change per INR Result per MD, # 30 each, 6 Refills, Maintenance, 06/12/21 17:09:00 EST, Tablet, [facility], Dosing Subject To Change per INR Result per MD,165, cm, 05/21/21 10:54:00 EDT, Height, 127, kg, 07... 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 Dates Health Status Cl inical Service Informant Chronic neck pain Discharge Diagnosis 11/08/21 Headache Discharge Diagnosis 11/08/21 Vital Signs Most recent to oldest [Reference Range]: 1 Height 165 cm (11/08/21 10:02 AM) Oxygen Saturation [94-100 %] 100 % (11/08/21 10:02 AM) Pulse Rate [55-90 bpm] 85 bpm (11/08/21 10:02 AM) Blood Pressure [90-138/55-84 mm Hg] 115/ 72mm Hg (11/08/21 10:02 AM) Temperature [96.8-100.4 DegF] 97.5 DegF (11/08/21 10:02 AM) Blood pressure sites Arm, right (11/08/21 10:02 AM) Temperature Route Temporal (11/08/21 10:02 AM) Social History Social History Type Response Smoking Status 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
--- OUTSIDE RECORDS SUMMARY | 2024-01-02 21:16 | XMS_ITS | Continuity of Care Document ---
Author Organization [facility] ter Address [address] [place] [address]- Care Team Providers Care [place] Manager Name Role Phone Kyle Ahumada DO Primary Care Physician [place] [facility] [place](s): 09/02/23 - 10/08/[address] [address] Attending Physician: Timothy Diaz MD Admitting Physician: Timothy Diaz MD Referring Physician: Timothy Diaz MD Allergies, Adverse Reactions, Alerts Substance Reaction [...] influenza virus vaccine, inactivated 7 07/08/17 Gi octvaio influenza virus vaccine, inactivated 8 04/01/17 Gi [...] vaccine, inactivated 05/10/07 Jarrett rded SARS-CoV-2 mRNA (apmmaik-gupx-ravwz) vax 08/30/21 Recorded SARS-CoV-2 (COVID-19) mRNA BNT-162b2 vac 01/02/21 Recorded SARS-CoV-2 (COVID-19) mRNA BNT-162b2 vac 12/02/20 Recorded Fluvirin (oldterm) 10 03/22/15 Given Fluzone Preservative-Free (oldterm) 11 03/12/12 Gi octavio pneumococcal 23-valent vaccine 10/08/11 Given tetanus/diphtheria/pertussis, acel(Tdap) 09/08/11 Given tetanus/diphtheria/pertussis, acel(Tdap) 12/17/06 Recorded influ virus vac, H1N1, inactive(oldterm) 12 05/08/11 Given hepatitis B adult vaccine 06/14/02 Recorded 1Result Comment: PCV 20 [facility]#[id number] 2Result Comment: Flu [facility]#[id number] 3Result Comment: [id number] 4Result Comment: [id number] 5Result Comment: [id number] 6Result Comment: [id number] 7Result Comment: [07/08/2017] [id number] 8Admin Note: [facility] 9Admin Note: [facility] 9-13 10Admin Note: Given at [facility] 11Admin Note: 03-11-12 GIVEN AT [facility] 12Admin Note: rcvd elsewhere Medications acetaminophen 325 mg oral tablet 2, tablet, By Mouth, Every 6 hours, PRN, # 100 tablet, Refills 5, Maintenance, NEEDED FOR MODERATE PAIN (VIAL), 09/14/23 15:41:00 EST, Route to Pharmacy Electronically, [facility], 160, cm, 07/07/23 15:02:00 EST, Height, 112.4, kg, 06/24/23... Start Date: 09/14/23 Status: Ordered Albuterol (Eqv-ProAir HFA) 90 mcg/inh inhalation aerosol 2 puffs, Inhalation, Every 4 hours, PRN NEEDED FOR WHEEZING OR FOR SHORTNESS OF BREATH (BULK), #8.5 Gm, 5 Refills, Maintenance, 07/25/23 11:45:00 EST, [facility], 17, INHALE 2 PUFFS BY MOUTH EVERY 4 HOURS NEEDED FOR WHEEZING OR FOR SHOR... Start Date: 07/25/23 Status: Ordered cloNIDine 0.1 mg oral tablet 1, tablet, By Mouth, 2 times a day, PRN, ANXIETY (VIAL., # 56 tablet, Refills 5, Maintenance, NEEDED, 10/07/23 15:53:00 EDT, Route to Pharmacy Electronically, [facility], 160, cm, 07/07/2315:02:00 EST, Height, 112.4, kg, 06/24/23 17:38:00... Start Date: 10/07/23 Status: Ordered cyclobenzaprine 5 mg oral tablet 1 tablet, By Mouth, 3 times a day, PRN NEEDED, SPASM (VIAL., # 90 tablet, 3 Refills, Maintenance, 08/19/23 10:07:00 EST, [facility], 160, cm, 07/07/23 15:02:00 EST, Height, 112.4, kg, 06/24/23 17:38:00 EST, Dry Weight Start Date: 08/19/23 Status: Ordered docusate sodium 100 mg oral capsule 100 mg, 1, capsule, By Mouth, 2 times a day, hold for loose stool, # 180 capsule, Refills 3, Tot. Refills 3, Maintenance, 03/13/23 16:56:00 EDT, Route to Pharmacy Electronically, [facility], Partial fill upon patient request if the prescriptio... Start Date: 03/13/23 Stop Date: 04/12/23 Status: Ordered duloxetine 20 mg oral enteric coated capsule 2 capsule = 40 mg, By Mouth, Daily at bedtime, # 60 capsule, 11 Refills, Maintenance, 06/25/21 12:00:00 EST, Capsule, [facility], Partial fill upon patient [...] twice daily for Type 2 Diabetes Mellitus, 12/12/23 15:12:00 EST, Supply, 160, cm, 07/07/23 15:02:00 [...] Replace Required Details, Route to Pharmacy Electronically, [facility], 160, cm, 07/07/23 15:02:00 EST, Height,... Start Date: 07/28/23 Status: Ordered furosemide 40 mg oral tablet 40 mg, 1, tablet, By Mouth, Daily, # 90 tablet, Refills 1, Tot. Refills 1, Maintenance, 03/02/23 18:12:00 EDT, Route to Pharmacy Electronically, [facility], Partial fill upon patient request if the prescription is for a schedule II opioid drug... Start Date: 03/02/23 Status: Ordered gabapentin 300 mg oral capsule 300 mg, 1, capsule, By Mouth, 3 times a day, # 90 capsule, Refills 2, Tot. Refills 2, Maintenance, 09/09/23 17:17:00 EST, Route to Pharmacy Electronically, [facility], Partial fill upon patient request if the prescription is for a schedule II... Start Date: 09/09/23 Status: Ordered Hopsital bed Hopsital bed, See Instructions, # 1 each, Refills 0, Tot. Refills 0, Maintenance, dx M48.061 187.2 150.9 will need for life time, 08/19/23 12:06:00 EST, Supply Start Date: 08/19/23 Status: Ordered ipratropium nasal 21 mcg/inh spray See Instructions, INSTILL 2 SPRAYS IN EACH NOSTRIL TWO TIMES A DAY, # 30 mL, 11 Refills, Maintenance, 08/11/23 7:46:00 EST, [facility], 30, INSTILL 2 SPRAYS [...] 07/01/23 14:32:00 EST, Route to Pharmacy Electronically, [facility], 160, cm, 06/26/23 11:21:00 EST, Height, 112.4, kg, 06/24/23 17:38:00 EST, Dry Weight Start Date: 07/01/23 Status: Ordered metFORMIN 500 mg oral tablet 1 tablet = 500 mg, By Mouth, 2 times a day, # 60 tablet, 5 Refills, Maintenance, 07/07/23 15:26:00 EST, Tablet, [facility], Partial fill upon patient request if the prescription is for a schedule II opioid drug., 160, cm, 07/07/23 15:02:00 EST... Start Date: 07/07/23 Stop Date: 01/03/24 Status: Ordered nicotine 21 mg/24 hr transdermal film, extended release 1 patch, Topically, Daily, # 28 patch, 3 Refills, Maintenance, 09/14/23 15:41:00 EST, [facility], 28, APPLY 1 PATCH TOPICALLY DAILY, [...] tablet, 5 Refills, Maintenance, 08/19/23 10:06:00 EST, [facility], 160, cm, 07/07/23 15:02:00 EST, Height, 112.4, kg, 06/24/23 17:38:00 EST,Dry Weight Start Date: 08/19/23 Status: Ordered rOPINIRole 0.5 mg oral tablet 1 tablet, By Mouth, 3 times a day, ^1R1,1R3,1R4., # 90 tablet, 5 Refills, Maintenance, 05/09/23 20:56:00 EDT, [facility], 160, cm, 04/02/23 12:45:00 EDT, Height, 98.8, kg, 07/17/22 8:58:00 EST, Dry Weight Start Date: 05/09/23 Status: Ordered rosuvastatin 10 mg oral tablet 1 tablet, By Mouth, Daily, ^1R1., # 30 tablet, 5 Refills, Maintenance, 07/01/23 14:33:00 EST, [facility], 160, cm, 06/26/23 11:21:00 EST, Height, 112.4, kg, 06/24/23 17:38:00 EST, Dry Weight Start Date: 07/01/23 Status: Ordered Symbicort 160mcg/4.5mcg Inhaler 2, puffs, Inhalation, 2 times a day, # 10.2 Gm, Refills 11, Tot. Refills 11, Maintenance, 06/03/23 11:47:00 EST, Aerosol, Route to Pharmacy Electronically, [id number], [facility], 160, cm, 06/03/23 11:30:00 EST, Height, 98.8, kg, ... Start Date: 06/03/23 Status: Ordered Walker with seat and breaks Walker with seat and breaks, See Instructions, # 1 each, Refills 0, Tot. Refills 0, Maintenance, HT:5'3 WT:241.6Lbs MARILYN:lifetime Dx:Z91.81(risk of fall), 09/28/23 9:21:00 EST, Supply Start Date: 09/28/23 Status: Ordered Xarelto 20 mg oral tablet 1 tablet, By Mouth, Daily in PM, ^1R4., # 30 tablet, 5 Refills, Maintenance, 08/11/23 11:28:00 EST,[facility], 160, cm, 07/07/23 15:02:00 EST, Height, [...] Confirmed Active Gastric banding status Confirmed Active USP current use of opiate analgesic Confirmed Active [...] Team Personnel Name: Sandra Wills NP Position: [facility] PCO Associate Professional Member Role: Primary Care Nurse Address: Address: [address] [place] [address] [place] [address]- [place] Name: Marley Alejo RN Position: S RN Member Role: Primary Care Nurse Name: Rashi Dewitt RN Position: S RN Member Role: Primary Care Nurse Name: Alma Delia Fonseca PharmD Position: S Associate Professional Member Role: Lifetime Consulting Provider Address: Address: [address] [place] [address] [place] [address]- [place] Name: Priscila Garzon RN Position: S RN Member Role: Primary Care Nurse Name: Kyle Ahumada DO Position: S Physician - Primary Care Member Role: PCP Address: Address: [address] [place] [address]- Name: Renea Mart RN Position: S RN Member Role: Primary Care Nurse Care Team Related Persons Name: FAUZIA JANSEN Address: home [address] [place] [address] Name: AURELIA SHETH Address: home [address] [place] [address] Name: BRE OSORIO Address: home [address] [place] [address]
--- OUTSIDE RECORDS SUMMARY | 2024-01-02 21:16 | XMS_ITS | Continuity of Care Document ---
Author Organization [facility] Robin Jane Nolberto Address [address] [place] [address]- Care Team Providers Care Agricultural Technician Name Role Phone Fuentes Garcia MD Primary Care Physician Encounter [facility] Date(s): 09/10/20 - 10/10/20 [facility] Robin Bolañosley Adult [address] [place] [address]- Allergies, Adverse Reactions, Alerts Substance Reaction Severity [...] H1N1, inactive(oldterm) 8 05/08/11 Given 1Result Comment: [id number] 2Result Comment: [id number] 3Result Comment: [07/08/2017] [id number] 4Admin Note: [facility] 5Admin Note: [facility] [...] 5 Refills, Maintenance, 07/03/20 9:16:00 EST, Cream, [facility] #[id number], Partial fill upon patient request if the [...] 06/04/20 12:56:00 EST, Route to Pharmacy Electronically, [facility] #[id number], please schedule appt for further refills, 165, cm, 05/16/20 14:15:00 EDT, Hei... Start Date: 06/04/20 Status: Ordered Claritin 10 mg oral tablet 10 mg, 1, tablet, By Mouth, Daily, for 90 days, # 90 tablet, Refills 3, Tot. Refills 3, Acute 07/28/21 15:22:00 EST, 08/02/20 15:22:00 EST, Route to Pharmacy Electronically, [facility] #[id number], 165, cm, 07/31/20 14:32:00 EST, Height, 127, kg,... Start Date: 08/02/20 Stop Date: 07/28/21 Status: Ordered colchicine 0.6 mg oral tablet See Instructions, take 1 tablet by mouth once daily if needed for PSEUDOGOUT pain, # 30 tablet, Refills 5, Tot. Refills 5, Soft Stop, 01/05/20 8:41:00 EDT, Instructions Replace Required Details, Route to Pharmacy Electronically, [facility] #... Start Date: 01/05/20 Status: Ordered [...] Gm, 3 Refills, Maintenance, 06/22/20 14:58:00 EST, [facility] #[id number], 165, cm, 06/07/20 13:52:00 EST, Height, 127, [...] mL, 5 Refills, Maintenance, 10/01/18 10:08:42 EST, [facility], 2 sprays Nares, Both 2 times a [...] 08/02/20 16:13:00 EST, Route to Pharmacy Electronically, [facility] #[id number], D/C RX ON FILE FOR ABRAM, 165, [...] tablet, 1 Refills, Maintenance, 07/12/20 13:56:00 EST, [facility] #[id number], Partial fill upon patient request if the prescription is for a schedule II opioid drug., 165, cm, 07/11/20 15:24:00 EST,... Start Date: 07/12/20 Stop Date: 07/05/21 Status: Ordered metoprolol 25 mg oral tablet 25 mg, 1, tablet, By Mouth, 2 times a day, # 60 tablet, Refills 5, Tot. Refills 5, Maintenance, 09/22/20 13:59:00 EST, Route to Pharmacy Electronically, [facility] #[id number], 165, cm, 07/31/2113:32:00 EST, Height, 127, kg, [...] 0 Refills, Maintenance, 06/18/20 16:57:00 EST, Patch, [facility] #[id number], Partial fill upon patient request, 165, cm, 06/07/20 13:52:00 EST, Height, 127, kg, 02/03/20 14:39:00 EDT, Dry Weight Start Date: 06/18/20 Stop Date: 07/30/20 Status: Ordered NuLYTELY with Flavor Packs oral powder for reconstitution See Instructions, Drink 240mL every 15-20 minutes until first half is gone. Repeat 6 hours prior toprocedure., # 4,000 mL, 0 Refills, Maintenance, 06/28/20 17:09:00 EST, [facility] #[id number],Partial fill upon patient request if the prescript... Start Date: 06/28/20 Status: Ordered oxyCODONE 10 mg oral tablet 1 tablet = 10 mg, By Mouth, Every 8 hours, DX Z79.891 G89.29 M47.816 OK TO FILL LESS THAN PRESCRIBED AMOUNT, # 84 tablet, 0 Refills, Maintenance, 10/08/20 16:54:00 EDT, Tablet, [facility] #[id number], 10/09/20, 165, cm, 07/31/20 14:32:00 EST, He... [...] Refills, Maintenance, 04/30/20 15:13:00 EDT, Tablet, [facility] #[id number], 165, cm, 04/30/20 14:30:00 EDT, Height, 127, kg, 02/03/20 14:39:00 EDT, Dry Weight Start Date: 04/30/20 Status: Ordered rosuvastatin 10 mg oral tablet 1 tablet = 10 mg, By Mouth, Daily, # 90 tablet, 3 Refills, Maintenance, 05/03/20 16:35:00 EDT, Tablet, [facility] #[id number], d/c rx for capsules, 165, cm, 04/30/20 14:30:00 EDT, Height, 127, kg, 02/03/20 14:39:00 EDT, Dry Weight Start Date: 05/03/20 Status: Ordered Ventolin HFA 108 mcg/inh inhalation aerosol with adapter 2 puffs, Inhalation, Every 4 hours, PRN Wheezing/Shortness of Breath, # 1 each, 11 Refills, Soft Stop, 01/19/20 11:46:00 EDT, [facility] #[id number], 165, cm, 01/16/20 6:17:00 EDT, Height, 128.1, kg, 01/16/20 6:17:00 EDT, Dry Weight Start Date: 01/19/20 Status: Ordered warfarin 5 mg oral tablet 1 tablet = 5 mg, By Mouth, Daily, dosing subject to change pending inr lab values, # 30 tablet, 11 Refills, Maintenance, 08/31/20 15:36:00 EST, Tablet, [facility] #[id number], 165, cm, 07/31/20 14:32:00 EST, Height, 127, [...] long-term use(Confirmed) Active Gastric banding status(Confirmed) Active 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
--- OUTSIDE RECORDS SUMMARY | 2024-01-02 21:16 | XMS_ITS | Continuity of Care Document ---
Author Organization [facility] Buck Nolberto Address [address] [place] [address]- Care Team Providers Care Plant Propagator Name Role Phone Krishan GRIDER, Eulogio Molina Primary Care Physician [phone] [facility]counter [facility] Date[facility]s): 12/06/21 - 01/05/22 [facility] Adult [address] [place] [address]- Allergies, Adverse Reactions, Alerts Substance Reaction Severity Status Adhesive Bandage Active Dust copd exac/sinus congestion A ctive Immunizations Given and Recorded Vaccine Date Status Refusal Reason SARS-CoV-2 mRNA ([id number]) vax 08/30/21 Recorded influenza virus vaccine, inactivated [...] B adult vaccine 06/14/02 Recorded 1Result Comment: [id number] 2Result Comment: [id number] 3Result Comment: [id number] 4Result Comment: [07/08/2017] [id number] 5Admin Note: [facility] 6Admin Note: [facility] [...] 8.5 Gm, 5 Refills, 05/29/21 17:13:00 EDT, [id number], 17, INHALE 2 PUFFS BY MOUTH EVERY 4 HOURS NEEDED FOR WHEEZING OR SHORTNE... Start Date: 05/29/21 Status: Ordered calcipotriene 0.005% topical cream 1 application, Topically, 2 times a day, # 60 Gm, 11 Refills, Maintenance, 11/15/21 11:54:00 EDT, Cream, [facility], Partial fill upon patient request if the prescription is for a schedule IIopioid drug., 1 application Topically 2 times a day... Start Date: 11/15/21 Status: Ordered colchicine 0.6 mg oral tablet 0.6 mg, 1, tablet, By Mouth, Daily, # 30 tablet, Refills 11, Tot. Refills 11, Maintenance, :00:00 EDT, Route to Pharmacy Electronically, [facility], Partial fill upon patient request if the prescription is for a schedule II opioid dr... Start Date: 10/30/21 Status: Ordered digoxin 0.125 mg oral tablet 125 mcg, 1, tablet, By Mouth, Daily, # 90 tablet, Refills 1, Tot. Refills 1, Maintenance, 12/11/21 13:41:00 EDT, Route to Pharmacy Electronically, [facility], Partial fill upon patient request if the prescription is for a schedule II opioid dr... Start Date: 12/11/21 Status: Ordered duloxetine 20 mg oral enteric coated capsule 2 capsule = 40 mg, By Mouth, Daily at bedtime, # 60 capsule, 11 Refills, Maintenance, 06/25/21 12:00:00 EST, Capsule, [facility], Partial fill upon patient request [...] Details, Route to Pharmacy Electronically, [facility], 165, cm, 06/25/21 11:35:00 EST, Height, 127, kg, 02/03/20 14:39:00 EDT, Dry Weight Start Date: 08/05/21 Status: Ordered metoprolol 100 mg oral tablet, extended release 100 mg, 1, tablet, By Mouth, Daily, # 90 tablet, Refills 1, Tot. Refills 1, Maintenance, 12/11/21 13:41:00 EDT, Route to Pharmacy Electronically, [facility], Partial fill upon patient requestif the prescription is for a schedule II opioid keanu... Start Date: 12/11/21 Status: Ordered nicotine 4 mg oral transmucosal gum 1 each = 4 mg, Chew, Every 2 hours, PRN as needed for smoking cessation, # 160 each, 2 Refills, Acute 03/05/22 16:36:00 EDT, 12/03/21 16:35:00 EDT, [facility] #[id number], Partial fill uponpatient request if the prescription is for a schedu... Start Date: 12/03/21 Stop Date: 03/05/22 Status: Ordered NuLYTELY with Flavor Packs oral powder for reconstitution 240 mL, By Mouth, Every 10 minutes, # 1 each, 0 Refills, Maintenance, 10/25/21 10:39:00 EDT, REC Powder, [facility], Partial fill upon patient request if the prescription is for a schedule IIopioid drug., 240 mL By Mouth Every 10 minutes, 165... Start Date: 10/25/21 Status: Ordered penicillin V potassium 250 mg oral tablet 1 tablet, By Mouth, 2 times a day, CELLULITIS PROPHYLAXIS., # 60 tablet, 6 Refills, [facility], 165, cm, 11/08/21 10:02:00 EDT, Height, 127, kg, 02/03/20 14:39:00 EDT, Dry Weight Start Date: 11/15/21 Status: Ordered rOPINIRole 0.5 mg oral tablet 1 tablet, By Mouth, 3 times a day, # 90 tablet, 5 Refills, 11/08/21 9:01:00 EDT, [facility], 165, cm, 11/04/21 8:42:00 EDT, Height, 127, kg, 02/03/20 14:39:00 EDT, Dry Weight Start Date: 11/08/21 Status: Ordered rosuvastatin 10 mg oral tablet See Instructions, TAKE 1 TABLET BY MOUTH DAILY, # 90 tablet, 1 Refills, Maintenance, 10/18/21 21:30:00 EDT, [facility], 165, cm, 09/04/21 14:01:00 EST, Height, 127, kg, 02/03/20 14:39:00 EDT,Dry Weight Start Date: 10/18/21 Status: Ordered Symbicort 80mcg/4.5mcg Inhaler 2, puffs, Inhalation, 2 times a day, Maintenance inhaler; rinse mouth and throat after use; in the morning and the evening, # 6.9 Gm, Refills 2, Tot. Refills 2, Maintenance, 12/24/21 6:30:00 EDT, Aerosol, Route to Pharmacy Electronically, [facility]... Start Date: 12/24/21 Status: Ordered warfarin 2.5 mg oral tablet See Instructions, Dosing Subject To Change per INR Result per MD, # 30 each, 6 Refills, Maintenance, 12/13/21 13:47:00 EDT, Tablet, [facility], Dosing Subject To Change per INR Result per MD,165, cm, 12/06/21 14:01:00 EDT, Height, 102.1, kg,... Start Date: 12/13/21 Status: Ordered warfarin 5 mg oral tablet See Instructions, Dosing Subject To Change Per INR Result per MD, # 30 each, 6 Refills, Maintenance, 12/13/21 14:01:00 EDT, Tablet, [facility], PLEASE GIVE BOTH 5MG TABLETS AND 2.5MG TABLETS;DOSE CHANGES AND DEPENDSON INR, 165, cm, 12/06/21 1... Start Date: 12/13/21 Status: Ordered Problem List Condition Effective Dates [...] long-term use(Confirmed) Active Gastric banding status(Confirmed) Active halfway current use of 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
--- OUTSIDE RECORDS SUMMARY | 2024-01-02 21:16 | XMS_ITS | Continuity of Care Document ---
Author Organization [facility] Robin Jane Nolberto lt Address [address] [place] [address]- Care Team Providers Care Dough Scaler And Mixer Name Role Phone Radha GRIDER, Fuentes Kenny Primary Care Physician [facility] Date[facility]): 04/04/20 - 05/04/20 [facility] Adult [address] [place] [address]- [facility] Allergies, Adverse Reactions, Alerts Substance Reaction Severity [...] influenza virus vaccine, inactivated 4 04/01/17 Gi octavoi influenza virus vaccine, inactivated 08/12/16 Jarrett rded influenza virus vaccine, inactivated 05/23/14 Give n influenza virus vaccine, inactivated 5 06/07/13 Gi octavio Fluvirin (oldterm) 6 03/22/15 Given Fluzone Preservative-Free (oldterm) 7 03/12/12 Giv en pneumococcal 23-valent vaccine 10/08/11 Given tetanus/diphtheria/pertussis, acel(Tdap) 09/08/11 Given influ virus vac, H1N1, inactive(oldterm) 8 05/08/11 Given 1Result Comment: [id number] 2Result Comment: [id number] 3Result Comment: [07/08/2017] [id number] 4Admin Note: [facility] 5Admin Note: [facility] [...] 12/06/19 9:16:00 EDT, Route to Pharmacy Electronically, [facility] #[id number], please schedule appt for further refills, 162, cm, 09/21/19 12:01:00 Laurie SPAIN... Start Date: 12/06/19 Status: Ordered Claritin 10 mg oral tablet 10 mg, 1, tablet, By Mouth, Daily, for 30 days, # 30 tablet, Refills 11, Tot. Refills 11, Acute 05/11/20 17:36:41 EDT, 05/17/19 17:36:41 EDT, Route to Pharmacy Electronically, [id number] [address] [place] [address] Start Date: 05/17/19 Stop Date: 05/11/20 Status: Ordered colchicine 0.6 mg oral tablet See Instructions, take 1 tablet by mouth once daily if needed for PSEUDOGOUT pain, # 30 tablet, Refills 5, Tot. Refills 5, Soft Stop, 01/05/20 8:41:00 EDT, Instructions Replace Required Details, Route to Pharmacy Electronically, [facility] #... Start Date: 01/05/20 Status: Ordered Disposable [...] Gm, 1 Refills, Maintenance, 12/20/19 16:30:00 EDT, [facility] #[id number], 162, cm, 09/21/19 12:01:00 EST, Height, 116.4, [...] mL, 5 Refills, Maintenance, 10/01/18 10:08:42 EST, [place], 2 sprays Nares, Both 2 times a [...] 03/22/20 16:34:00 EDT, Route to Pharmacy Electronically, [facility] #[id number], 165, cm, 02/02/2014:39:00 EDT, Height, 127, kg, [...] 0 Refills, Maintenance, 04/23/20 12:56:00 EDT, Tablet, [facility] #[id number], 04/24/20, 165, cm, 02/03/20 14:39:00 EDT, He... [...] 5 Refills, Maintenance, 04/30/20 15:13:00 EDT, Tablet, [facility] #[id number], 165, cm, 04/30/20 14:30:00 EDT, Height, 127, kg, 02/03/20 14:39:00 EDT, Dry Weight Start Date: 04/30/20 Status: Ordered rosuvastatin 10 mg oral tablet 1 tablet = 10 mg, By Mouth, Daily, # 90 tablet, 3 Refills, Maintenance, 05/03/20 16:35:00 EDT, Tablet, [facility] #[id number], d/c rx for capsules, 165, cm, 04/30/20 14:30:00 EDT, Height, 127, kg, 02/03/20 14:39:00 EDT, Dry Weight Start Date: 05/03/20 Status: Ordered Ventolin HFA 108 mcg/inh inhalation aerosol with adapter 2 puffs, Inhalation, Every 4 hours, PRN Wheezing/Shortness of Breath, # 1 each, 11 Refills, Soft Stop, 01/19/20 11:46:00 EDT, [facility] #[id number], 165, cm, 01/16/20 6:17:00 EDT, Height, 128.1, kg, 01/16/20 6:17:00 EDT, Dry Weight Start Date: 01/19/20 Status: Ordered warfarin 5 mg oral tablet 1 tablet = 5 mg, By Mouth, Daily, dosing subject to change pending inr lab values, # 30 tablet, 5 Refills, Maintenance, 02/15/20 13:21:00 EDT, Tablet, [facility] #[id number], 165, cm, 02/03/20 14:39:00 EDT, Height, 127, [...] use(Confirmed) Active Gastric banding status(Confirmed) Active 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
--- OUTSIDE RECORDS SUMMARY | 2024-01-02 21:16 | XMS_ITS | Continuity of Care Document ---
Author Organization [facility] Nolberto Address [address] [place] [address]- Care Team Providers Care Woodyard Crane Operator Name Role Phone Fuentes Garcia MD Primary Care Physician [facility] Date[facility]s): 02/28/21 - 03/07/21 [facility] Adult [address] [place] [address]- Attending Physician: Fuentes Garcia MD Allergies, Adverse [...] B adult vaccine 06/14/02 Recorded 1Result Comment: [id number] 2Result Comment: [id number] 3Result Comment: [07/08/2017] [id number] 4Admin Note: [facility] 5Admin Note: [facility] [...] 11 Refills, Maintenance, 10/31/20 14:14:00 EDT, Cream, [facility] #[id number], Partial fill upon patient request if the [...] tablet, Refills 0, Tot. Refills 0, Maintenance, 02/12/21 12:56:00 EDT, Route to Pharmacy Electronically, [facility] #[id number], 165, cm, 01/11/21 14:05:00 EDT, Height, 127, kg, 02/03/20 14:39:00 EDT, Dry Weight Start Date: 02/12/21 Status: Ordered COVID 19 vaccine COVID 19 [...] PMR, history of smoking fax to : [phone], 04... Start Date: 10/26/20 Status: Ordered Disposable [...] Gm, 3 Refills, Maintenance, 06/22/20 14:58:00 EST, [facility] #[id number], 165, cm, 06/07/20 13:52:00 EST, Height, 127, [...] Dry Weight Start Date: 02/25/21 Status: Ordered Hospital Bed See Instructions, # [...] mL, 5 Refills, Maintenance, 10/01/18 10:08:42 EST, [place], 2 sprays Nares, Both 2 times a [...] 08/02/20 16:13:00 EST, Route to Pharmacy Electronically, [facility] #[id number], D/C RX ON FILE FOR ABRAM, 165, [...] a day, # 60 tablet, 3 Refills, Maintenance, 02/25/21 10:31:00 EDT, Tablet, [facility] #08029, Partial fill upon patient request if the prescription is for a schedule II opioid drug., 165, cm, 01/11/21 14:... Start Date: 02/25/21 Status: Ordered methenamine hippurate 1 gm oral tablet 1 tablet = 1 Gm, By Mouth, 2 times a day, # 60 tablet, 1 Refills, Maintenance, 07/12/20 13:56:00 EST, [facility] #[id number], Partial fill upon patient request if the prescription is for a schedule II opioid drug., 165, cm, 07/11/20 15:24:00 EST,... Start Date: 07/12/20 Stop Date: 07/05/21 Status: Ordered Metoprolol Tartrate 25 mg oral tablet 1 tablet, By Mouth, 2 times a day, # 60 tablet, 2 Refills, Maintenance, 03/07/21 10:08:00 EDT, [facility] #[id number], 165, cm, 02/28/21 14:22:00 EDT, Height, 127, kg, 02/03/20 14:39:00 EDT, DryWeight Start Date: 03/07/21 Status: Ordered Mitigare 0.6 mg oral capsule 1 capsule, By Mouth, Daily, # 30 capsule, 11 Refills, Maintenance, 12/31/20 16:51:00 EDT, [facility] #[id number], 165, cm, 11/19/20 11:32:00 EDT, Height, 127, [...] 0 Refills, Maintenance, 06/18/20 16:57:00 EST, Patch, [facility] #[id number], Partial fill upon patient request, 165, cm, 06/07/20 13:52:00 EST, Height, 127, kg, 02/03/20 14:39:00 EDT, Dry Weight Start Date: 06/18/20 Stop Date: 07/30/20 Status: Ordered NuLYTELY with Flavor Packs oral powder for reconstitution See Instructions, Drink 240mL every 15-20 minutes until first half is gone. Repeat 6 hours prior toprocedure., # 4,000 mL, 0 Refills, Maintenance, 06/28/20 17:09:00 EST, [facility] #[id number],Partial fill upon patient request if the prescript... Start Date: 06/28/20 Status: Ordered oxyCODONE 10 mg oral tablet 1 tablet = 10 mg, By Mouth, Every 8 hours, DX Z79.891 G89.29 M47.816 OK TO FILL LESS THAN PRESCRIBED AMOUNT, # 84 tablet, 0 Refills, Maintenance, 02/25/21 12:52:00 EDT, Tablet, [facility] #[id number], 02/26/21, 165, cm, 01/11/21 14:05:00 EDT, He... Start Date: 02/25/21 Stop Date: 03/25/21 Status: Ordered penicillin V potassium 250 mg oral tablet 1 tablet = 250 mg, By Mouth, 2 times a day, Cellulitis prophylaxis, # 60 tablet, 11 Refills, Maintenance, 10/30/20 12:09:00 EDT, [facility] #[id number], 165, cm, 10/19/20 8:59:00 EDT, Height, 127, kg, 02/03/20 14:39:00 EDT, Dry Weight Start Date: 10/30/20 Status: Ordered predniSONE 5 mg oral tablet 1 tablet = 5 mg, By Mouth, Daily, # 30 tablet, 0 Refills, Maintenance, 01/11/21 14:20:00 EDT, Tablet, [facility] #[id number], Partial fill upon patient request if the [...] 5 Refills, Maintenance, 04/30/20 15:13:00 EDT, Tablet, [facility] #[id number], 165, cm, 04/30/20 14:30:00 EDT, Height, 127, kg, 02/03/20 14:39:00 EDT, Dry Weight Start Date: 04/30/20 Status: Ordered rosuvastatin 10 mg oral tablet 1 tablet = 10 mg, By Mouth, Daily, # 90 tablet, 3 Refills, Maintenance, 05/03/20 16:35:00 EDT, Tablet, [facility] #[id number], d/c rx for capsules, 165, cm, 04/30/20 14:30:00 EDT, Height, 127, kg, 02/03/20 14:39:00 EDT, Dry Weight Start Date: 05/03/20 Status: Ordered Ventolin HFA 108 mcg/inh inhalation aerosol with adapter 2 puffs, Inhalation, Every 4 hours, PRN Wheezing/Shortness of Breath, # 1 each, 5 Refills, Soft Stop, 11/08/20 8:46:00 EDT, [facility] #[id number], 165, cm, 10/19/20 8:59:00 EDT, Height, 127, kg, 02/03/20 14:39:00 EDT, Dry Weight Start Date: 11/08/20 Status: Ordered warfarin 2.5 mg oral tablet See Instructions, take 2.5mg sun sat subjet to change based on INR per MD, # 90 each, 3 Refills, Maintenance, 02/11/21 10:38:00 EDT, Tablet, [facility] #[id number], PLEASE GIVE THIS IN COMBINATION WITH 5MG TABLETS;, 165, cm, 01/11/21... Start Date: 02/11/21 Status: Ordered warfarin 5 mg oral tablet 1 tablet = 5 mg, By Mouth, Daily, dosing subject to change pending inr lab values TAKE thu,# 90 tablet, 11 Refills, Maintenance, 02/11/21 10:42:00 EDT, Tablet, [id number], PLEASE GIVE BOTH 5MG TABLETS AND 2.5MG TABLETS; DOSE... Start Date: 02/11/21 Status: Ordered Problem List Condition Effective Dates [...] oldest [Reference Range]: 1 Height 165 cm (02/28/21 2:22 PM) Social History Social History Type Response Smoking Status 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
--- OUTSIDE RECORDS SUMMARY | 2024-01-02 21:16 | XMS_ITS | Continuity of Care Document ---
Author Organization [facility] Buck Nolberto lt Address [address] [place] [address]- Care Team Providers Care Brush Finisher Name Role Phone Fuentes Gacria MD Primary Care Physician [facility]): 06[facility]21 - 07/25/21 [facility] Robin Bolañosley Adult [address] [place] [address]- Attending Physician: Admtr, Ar8 Admitting Physician: Admtr, [...] B adult vaccine 06/14/02 Recorded 1Result Comment: [id number] 2Result Comment: [id number] 3Result Comment: [id number] 4Result Comment: [07/08/2017] [id number] 5Admin Note: [facility] 6Admin Note: [facility] [...] [facility][id number], 17, INHALE 2 PUFFS BY MOUTH EVERY [...] 11 Refills, Maintenance, 10/31/20 14:14:00 EDT, Cream, [facility] #[id number], Partial fill upon patient request if the [...] tablet, Refills 3, Route to Pharmacy Electronically, [facility], 165, cm, 06/25/21 11:35:00 EST, Height, [...] PMR, history of smoking fax to : [phone], 04... Start Date: 10/26/20 Status: Ordered Disposable [...] 11 Refills, Maintenance, 06/25/21 12:00:00 EST, [facility]apsule, [facility], Partial fill upon patient request [...] Gm, 3 Refills, Maintenance, 06/22/20 14:58:00 EST, [facility] #[id number], 165, cm, 06/07/20 13:52:00 EST, Height, 127, [...] Refills, Maintenance, 05/24/21 16:13:00 EDT, REC Powder, [facility] #[id number], Partial fill upon patient request if the [...] mL, 5 Refills, Maintenance, 10/01/18 10:08:42 EST, [place], 2 sprays Nares, Both 2 times a [...] 08/02/20 16:13:00 EST, Route to Pharmacy Electronically, [facility] #[id number], D/C RX ON FILE FOR ABRAM, 165, [...] tablet, 6Refills, Maintenance, 05/21/21 11:19:00 EDT, Tablet, [facility], Partial fill upon patient request if the prescription is for a schedule II... Start Date: 05/21/21 Status: Ordered methenamine hippurate 1 gm oral tablet 1 tablet = 1 Gm, By Mouth, 2 times a day, # 60 tablet, 11 Refills, Maintenance, 07/05/21 14:00:00 EST, [facility], Partial fill upon patient request if the prescription is for a schedule II opioid drug., 165, cm, 02/28/21 14:22:00 EDT, Height,... Start Date: 07/05/21 Status: Ordered Metoprolol Tartrate 25 mg oral tablet 1 tablet, By Mouth, 2 times a day, # 60 tablet, 3 Refills, [facility], 165, cm, 06/25/21 11:35:00 EST, Height, 127, kg, 02/03/20 14:39:00 EDT, Dry Weight Start Date: 07/09/21 Status: Ordered Mitigare 0.6 mg oral capsule 1 capsule, By Mouth, Daily, # 30 capsule, 11 Refills, Maintenance, 12/31/20 16:51:00 EDT, [facility] #[id number], 165, cm, 11/19/20 11:32:00 EDT, Height, 127, [...] 0 Refills, Maintenance, 04/11/21 9:00:00 EDT, Patch, [facility], Partial fill upon patient request, 165, cm, 02/28/21 14:22:00 EDT, Height, 127, kg, 02/03/20 14:39:00 EDT, Dry Weight Start Date: 04/11/21 Stop Date: 05/23/21 Status: Ordered NuLYTELY with Flavor Packs oral powder for reconstitution See Instructions, Drink 240mL every 15-20 minutes until first half is gone. Repeat 6 hours prior toprocedure., # 4,000 mL, 0 Refills, Maintenance, 06/28/20 17:09:00 EST, [facility] #[id number],Partial fill upon patient request if the prescript... Start Date: 06/28/20 Status: Ordered oxyCODONE 10 mg oral tablet 1 tablet = 10 mg, By Mouth, Every 8 hours, DX Z79.891 G89.29 M47.816 OK TO FILL LESS THAN PRESCRIBED AMOUNT, # 84 tablet, 0 Refills, Maintenance, 07/16/21 13:32:00 EST, Tablet, [facility] #[id number], 165, cm, 06/25/21 11:35:00 EST, Height, 127,... Start Date: 07/16/21 Stop Date: 08/13/21 Status: Ordered oxyCODONE 5 mg oral tablet 10 mg, 2, tablet, By Mouth, Every 8 hours, DX Z79.891 G89.29 M47.816 OK TO FILL LESS THAN PRESCRIBED AMOUNT, # 168 tablet, Refills 0, Tot. Refills 0, Maintenance, 03/25/21 16:45:00 EDT, Route to Pharmacy Electronically, [facility] #02235, D... Start Date: 03/25/21 Stop Date: 04/22/21 Status: Ordered penicillin V potassium 250 mg oral tablet 1 tablet = 250 mg, By Mouth, 2 times a day, Cellulitis prophylaxis, # 60 tablet, 11 Refills, Maintenance, 10/30/20 12:09:00 EDT, [id number], 165, cm, 10/19/20 8:59:00 EDT, Height, 127, kg, 02/03/20 14:39:00 EDT, Dry Weight Start Date: 10/30/20 Status: Ordered predniSONE 5 mg oral tablet 1 tablet = 5 mg, By Mouth, Daily, # 30 tablet, 0 Refills, Maintenance, 01/11/21 14:20:00 EDT, Tablet, [facility] #[id number], Partial fill upon patient request if the prescription is for a schedule II opioid drug., 165, cm, 01/11/21 14:05:00 EDT,... Start Date: 01/11/21 Status: Ordered propranolol 20 mg oral tablet 20 mg, 1, tablet, By Mouth, 2 times a day, # 60 tablet, Refills 5, Tot. Refills 5, Maintenance, 06/25/21 11:57:00 EST, Route to Pharmacy Electronically, [facility], Partial fill upon [...] a day, # 90 tablet, 3 Refills, [facility], 165, cm, 06/25/21 11:35:00 EST, Height, 127, kg, 02/03/20 14:39:00 EDT, Dry Weight Start Date: 07/09/21 Status: Ordered rosuvastatin 10 mg oral tablet 1 tablet = 10 mg, By Mouth, Daily, # 90 tablet, 1 Refills, Maintenance, 05/20/21 15:53:00 EDT, Tablet, [facility], d/c rx for capsules, 165, cm, 02/28/21 14:22:00 EDT, Height, 127, kg, 02/03/20 14:39:00 EDT, Dry Weight Start Date: 05/20/21 Status: Ordered Trulicity Pen 1.5 mg/0.5 mL subcutaneous solution 0.5 mL = 1.5 mg, Subcutaneous Injection, Every week, take on same day every week, rotate injection sites E11.9, # 2 mL, 6 Refills, Maintenance, 07/23/21 10:03:00 EST, Solution, [facility] #[id number], Partial fill upon patient request if the p... Start Date: 07/23/21 Status: Ordered warfarin 2.5 mg oral tablet See Instructions, Dosing Subject To Change per INR Result per MD, # 30 each, 6 Refills, Maintenance, 06/12/21 17:09:00 EST, Tablet, [facility], Dosing Subject To Change per INR Result per MD,165, cm, 05/21/21 10:54:00 EDT, Height, 127, kg, 07... Start Date: 06/12/21 Status: Ordered warfarin 5 mg oral tablet See Instructions, Dosing Subject To Change Per INR Result per MD, # 30 each, 6 Refills, Maintenance, 06/12/21 17:05:00 EST, Tablet, [facility], PLEASE GIVE BOTH 5MG TABLETS AND [...] long-term use(Confirmed) Active Gastric banding status(Confirmed) Active care home current use of 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
--- OUTSIDE RECORDS SUMMARY | 2024-01-02 21:16 | XMS_ITS | Continuity of Care Document ---
Author Organization [facility] Buck Nolberto Address [address] [place] [address]- Care Team Providers Care Drama Therapist Name Role Phone Krishan GRIDER, Eulogio Molina Primary Care Physician [facility] Date[facility]): 12/19[facility]21 - 12/26/21 [facility] Adult [address] [place] [address]- Attending Physician: Cristiano ROMERO, Rubi Fuller Allergies, Adverse Reactions, Alerts Substance Reaction Severity Status Adhesive Bandage Active Dust copd exac/sinus congestion A ctive Immunizations Given and Recorded Vaccine Date Status Refusal Reason SARS-CoV-2 mRNA (isqczau-mtiu-qridd) vax 08/30/21 Recorded influenza virus vaccine, inactivated [...] B adult vaccine 06/14/02 Recorded 1Result Comment: [id number] 2Result Comment: [id number] 3Result Comment: [id number] 4Result Comment: [07/08/2017] [id number] 5Admin Note: [facility] 6Admin Note: [facility] [...] 8.5 Gm, 5 Refills, 05/29/21 17:13:00 EDT, [id number], 17, INHALE 2 PUFFS BY MOUTH EVERY 4 HOURS NEEDED FOR WHEEZING OR SHORTNE... Start Date: 05/29/21 Status: Ordered calcipotriene 0.005% topical cream 1 application, Topically, 2 times a day, # 60 Gm, 11 Refills, Maintenance, 11/15/21 11:54:00 EDT, [facility] fill upon patient request if the prescription is for a schedule IIopioid drug., 1 application Topically 2 times a day... Start Date: 11/15/21 Status: Ordered colchicine 0.6 mg oral tablet 0.6 mg, 1, tablet, By Mouth, Daily, # 30 tablet, Refills 11, Tot. Refills 11, Maintenance, 04/06/227:00:00 EDT, Route to Pharmacy Electronically, [facility], Partial fill upon patient request if the prescription is for a schedule II opioid drTorey.. Start Date: 10/30/21 Status: Ordered cyclobenzaprine 10 mg oral tablet See Instructions, PRN, 1 tablet By Mouth 3 times a day as needed, # 20 tablet, Refills 0, Tot. Refills 0, Maintenance, for spasm, 11/08/21 10:23:00 EDT, Instructions Replace Required Details, Route to Pharmacy Electronically, [id number]... Start Date: 11/08/21 Status: Ordered digoxin 0.125 mg oral tablet 125 mcg, 1, tablet, By Mouth, Daily, # 90 tablet, Refills 1, Tot. Refills 1, Maintenance, 12/11/21 13:41:00 EDT, Route to Pharmacy Electronically, [facility], Partial fill upon patient request if the prescription is for a schedule II opioid drKatie. Start Date: 12/11/21 Status: Ordered duloxetine 20 mg oral enteric coated capsule 2 capsule = 40 mg, By Mouth, Daily at bedtime, # 60 capsule, 11 Refills, Maintenance, 06/25/21 12:00:00 EST, Capsule, [facility], Partial fill upon patient request if [...] 5 Refills, Maintenance, 11/18/21 13:49:00 EDT, Tablet, [facility], Partial fill upon patient request if the prescription is for a schedule II opioid drug., 165, cm, ... Start Date: 11/18/21 Status: Ordered Lamotrigine See Instructions, TAKES 250MG DAILY, Refills 0, Maintenance, 12/11/21 11:59:00 EDT, Instructions Replace Required Details, Partial fill upon patient request if the prescription is for a schedule II opioid drug. Start Date: 12/11/21 Status: Ordered loratadine 10 mg oral tablet See Instructions, TAKE 1 TABLET BY MOUTH ONCE A DAY, # 90 tablet, Refills 1, Instructions Replace Required Details, Route to Pharmacy Electronically, [facility], 165, cm, 06/25/21 11:35:00 EST, Height, 127, kg, 02/03/20 14:39:00 EDT, Dry Weight Start Date: 08/05/21 Status: Ordered metoprolol 100 mg oral tablet, extended release 100 mg, 1, tablet, By Mouth, Daily, # 90 tablet, Refills 1, Tot. Refills 1, Maintenance, 12/11/21 13:41:00 EDT, Route to Pharmacy Electronically, [facility], Partial fill upon patient requestif the prescription is for a schedule II opioid keanu... Start Date: 12/11/21 Status: Ordered nicotine 4 mg oral transmucosal gum 1 each = 4 mg, Chew, Every 2 hours, PRN as needed for smoking cessation, # 160 each, 2 Refills, Acute 03/05/22 16:36:00 EDT, 12/03/21 16:35:00 EDT, Gum, [facility] #[id number], Partial fill uponpatient request if the prescription is for a schedu... Start Date: 12/03/21 Stop Date: 03/05/22 Status: Ordered NuLYTELY with Flavor Packs oral powder for reconstitution 240 mL, By Mouth, Every 10 minutes, # 1 each, 0 Refills, Maintenance, 10/25/21 10:39:00 EDT, REC Powder, [facility], Partial fill upon patient request if the prescription is for a schedule IIopioid drug., 240 mL By Mouth Every 10 minutes, 165... Start Date: 10/25/21 Status: Ordered penicillin V potassium 250 mg oral tablet 1 tablet, By Mouth, 2 times a day, CELLULITIS PROPHYLAXIS., # 60 tablet, 6 Refills, [facility], 165, cm, 11/08/21 10:02:00 EDT, Height, 127, kg, 02/03/20 14:39:00 EDT, Dry Weight Start Date: 11/15/21 Status: Ordered rOPINIRole 0.5 mg oral tablet 1 tablet, By Mouth, 3 times a day, # 90 tablet, 5 Refills, 11/08/21 9:01:00 EDT, [facility], 165, cm, 11/04/21 8:42:00 EDT, Height, 127, kg, 02/03/20 14:39:00 EDT, Dry Weight Start Date: 11/08/21 Status: Ordered rosuvastatin 10 mg oral tablet See Instructions, TAKE 1 TABLET BY MOUTH DAILY, # 90 tablet, 1 Refills, Maintenance, 10/18/21 21:30:00 EDT, [facility], 165, cm, 09/04/21 14:01:00 EST, Height, 127, kg, 02/03/20 14:39:00 EDT,Dry Weight Start Date: 10/18/21 Status: Ordered Spacer Spacer, See Instructions, # 1 each, Refills 0, Tot. Refills 0, Maintenance, Spacer, 12/19/21 9:15:00 EDT, Spacer for inhaler, Supply, 165, cm, 12/19/21 8:48:00 EDT, Height, 102.1, kg, 12/06/21 14:01:00 EDT, Dry Weight Start Date: 12/19/21 Status: Ordered Symbicort 80mcg/4.5mcg Inhaler 2, puffs, [...] 6 Refills, Maintenance, 12/13/21 13:47:00 EDT, Tablet, [facility], Dosing Subject To Change per INR Result per MD,165, cm, 12/06/21 14:01:00 EDT, Height, 102.1, kg,... Start Date: 12/13/21 Status: Ordered warfarin 5 mg oral tablet See Instructions, Dosing Subject To Change Per INR Result per MD, # 30 each, 6 Refills, Maintenance, 12/13/21 14:01:00 EDT, Tablet, [facility], PLEASE GIVE BOTH 5MG TABLETS AND [...] long-term use(Confirmed) Active Gastric banding status(Confirmed) Active skilled nursing current use of 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 oldest [Reference Range]: 1 Height 165 cm (12/19/21 8:48 AM) Social History Social History Type Response Smoking Status 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
--- OUTSIDE RECORDS SUMMARY | 2024-01-02 21:16 | XMS_ITS | Continuity of Care Document ---
Author Organization [facility] Robin Jane Nolberto Address [address] [place] [address]- Care Team Providers Care Technical Services Librarian Name Role Phone Kyle Ahumada DO Primary Care Physician [phone] [facility] Date[facility]s): 07/01/23 - 07/31/23 [facility] Robin Bolañosley Adult [address] [place] [address]- Allergies, Adverse Reactions, Alerts Substance Reaction Severity [...] vaccine, inactivated 05/10/07 Jarrett rded SARS-CoV-2 mRNA (cdhttnb-zxso-wflea) vax 08/30/21 Recorded SARS-CoV-2 (COVID-19) mRNA BNT-162b2 vac 01/02/21 Recorded SARS-CoV-2 (COVID-19) mRNA BNT-162b2 vac 12/02/20 Recorded Fluvirin (oldterm) 10 03/22/15 Given Fluzone Preservative-Free (oldterm) 11 03/12/12 Gi octavio pneumococcal 23-valent vaccine 10/08/11 Given tetanus/diphtheria/pertussis, acel(Tdap) 09/08/11 Given tetanus/diphtheria/pertussis, acel(Tdap) 12/17/06 Recorded influ virus vac, H1N1, inactive(oldterm) 12 05/08/11 Given hepatitis B adult vaccine 06/14/02 Recorded 1Result Comment: PCV 20 [facility]#[id number] 2Result Comment: Flu [facility]#[id number] 3Result Comment: [id number] 4Result Comment: [id number] 5Result Comment: [id number] 6Result Comment: [id number] 7Result Comment: [07/08/2017] [id number] 8Admin Note: [facility] 9Admin Note: [facility] 9-13 10Admin Note: Given at [facility] 11Admin Note: 03-11-12 GIVEN AT [facility] 12Admin Note: rcvd elsewhere Medications Albuterol (Eqv-ProAir HFA) 90 mcg/inh inhalation aerosol 2 puffs, Inhalation, Every 4 hours, PRN NEEDED FOR WHEEZING OR FOR SHORTNESS OF BREATH (BULK), #8.5 Gm, 5 Refills, Maintenance, 07/25/23 11:45:00 EST, [facility], 17, INHALE 2 PUFFS BY MOUTH EVERY 4 HOURS NEEDED FOR WHEEZING OR FOR SHOR... Start Date: 07/25/23 Status: Ordered cloNIDine 0.1 mg oral tablet 1, tablet, By Mouth, 2 times a day, PRN, ANXIETY (VIAL., # 56 tablet, Refills 2, Maintenance, NEEDED, 07/25/23 11:44:00 EST, Route to Pharmacy Electronically, [facility], 160, cm, 07/07/2315:02:00 EST, Height, 112.4, kg, 06/24/23 17:38:00... Start Date: 07/25/23 Status: Ordered cyclobenzaprine 5 mg oral tablet 1 tablet, By Mouth, 3 times a day, PRN NEEDED, SPASM (VIAL., # 90 tablet, 2 Refills, Maintenance, 06/08/23 9:15:00 EST, [facility], 160, cm, 06/03/23 11:30:00 EST, Height, 98.8, kg, 07/17/22 8:58:00 EST, Dry Weight Start Date: 06/08/23 Status: Ordered docusate sodium 100 mg oral capsule 100 mg, 1, capsule, By Mouth, 2 times a day, hold for loose stool, # 180 capsule, Refills 3, Tot. Refills 3, Maintenance, 03/13/23 16:56:00 EDT, [facility], Partial fill upon patient request if the prescriptio... Start Date: 03/13/23 Stop Date: 04/12/23 Status: Ordered duloxetine 20 mg oral enteric coated capsule 2 capsule = 40 mg, By Mouth, Daily at bedtime, # 60 capsule, 11 Refills, Maintenance, 06/25/21 12:00:00 EST, Capsule, [facility], Partial fill upon patient request [...] Replace Required Details, Route to Pharmacy Electronically, [facility], 160, cm, 07/07/23 15:02:00 EST, Height,... Start Date: 07/28/23 Status: Ordered furosemide 40 mg oral tablet 40 mg, 1, tablet, By Mouth, Daily, # 90 tablet, Refills 1, Tot. Refills 1, Maintenance, 03/02/23 18:12:00 EDT, Route to Pharmacy Electronically, [facility], Partial fill upon patient request if the prescription is for a schedule II opioid drug... Start Date: 03/02/23 Status: Ordered ipratropium nasal 21 mcg/inh spray 2 sprays = 42 mcg, Nares, Both, 2 times a day, # 30 mL, 5 Refills, Maintenance, 03/13/23 16:58:00 EDT, [place], [facility], Partial fill upon patient request [...] EST, [facility], 160, cm, 06/26/23 11:21:00 EST, Height, 112.4, kg, 06/24/23 17:38:00 EST, Dry Weight Start Date: 07/01/23 Status: Ordered metFORMIN 500 mg oral tablet 1 tablet = 500 mg, By Mouth, 2 times a day, # 60 tablet, 5 Refills, Maintenance, 07/07/23 15:26:00 EST, Tablet, [facility], Partial fill upon patient request if the prescription is for a schedule II opioid drug., 160, cm, 07/07/23 15:02:00 EST... Start Date: 07/07/23 Stop Date: 01/03/24 Status: Ordered nicotine 21 mg/24 hr transdermal film, extended release 1 patch, Topically, Daily, # 30 patch, 3 Refills, Maintenance, 06/08/23 9:15:00 EST, [facility], 30, APPLY 1 PATCH TOPICALLY [...] tablet, 5 Refills, Maintenance, 04/10/23 16:03:00 EDT, [facility], 160, cm, 04/02/23 12:45:00 EDT, Height, 98.8, kg, 07/17/22 8:58:00 EST, Dry Weight Start Date: 04/10/23 Status: Ordered rOPINIRole 0.5 mg oral tablet 1 tablet, By Mouth, 3 times a day, ^1R1,1R3,1R4., # 90 tablet, 5 Refills, Maintenance, 05/09/23 20:56:00 EDT, [facility], 160, cm, 04/02/23 12:45:00 EDT, Height, 98.8, kg, 07/17/22 8:58:00 EST, Dry Weight Start Date: 05/09/23 Status: Ordered rosuvastatin 10 mg oral tablet 1 tablet, By Mouth, Daily, ^1R1., # 30 tablet, 5 Refills, Maintenance, 07/01/23 14:33:00 EST, [facility], 160, cm, 06/26/23 11:21:00 EST, Height, 112.4, kg, 06/24/23 17:38:00 EST, Dry Weight Start Date: 07/01/23 Status: Ordered Symbicort 160mcg/4.5mcg Inhaler 2, puffs, Inhalation, 2 times a day, # 10.2 Gm, Refills 11, Tot. Refills 11, Maintenance, 06/03/23 11:47:00 EST, Aerosol, Route to Pharmacy Electronically, [id number], [facility], 160, cm, 06/03/23 11:30:00 EST, Height, 98.8, kg, ... Start Date: 06/03/23 Status: Ordered Xarelto 20 mg oral tablet 1 tablet = 20 mg, By Mouth, Daily at supper, # 90 tablet, 1 Refills, Maintenance, 03/02/23 18:12:00EDT, Tablet, [facility], pt was rx'd w diltiazem on [...] Confirmed Active Gastric banding status Confirmed Active group home current use of opiate analgesic Confirmed [...] Team Personnel Name: Sandra Wills NP Position: [facility] PCO Associate Professional Member Role: Primary Care Nurse Address: Address: [address] [facility] [place] [address]- [place] Name: Marley Alejo RN Position: S RN Member Role: Primary Care Nurse Name: Rashi Dewitt RN Position: S RN Member Role: Primary Care Nurse Name: Alma Delia Fonseca PharmD Position: [facility] Associate Professional Member Role: Lifetime Consulting Provider Address: Address: [address] [facility] [place] [address]- [place] Name: Yolis Mattson RN Position: S RN Member Role: Primary Care Nurse Name: Priscila Garzon RN Position: [facility] RN Member Role: Primary Care Nurse Name: Kyle Ahumada DO Position: [facility] Physician - Primary Care Member Role: PCP Address: Address: [address] [place] [address]- [place] Name: Renea Mart RN Position: [facility] RN Member Role: Primary Care Nurse Care Team Related Persons Name: FAUZIA JANSEN Address: home [address] [place] [address] Name: AURELIA SHETH Address: [address] [place] [address] Name: BRE OSORIO Address: [address] [place] [address]
--- OUTSIDE RECORDS SUMMARY | 2024-01-02 21:16 | XMS_ITS | Continuity of Care Document ---
Author Organization [facility] [place] Nolberto Address [address] [place] [address]- Care Team Providers Care Veneer Drier Name Role Phone Krishan GRIDER, Eulogio Molina Primary Care Physician [place] [facility] [place] 04/28[place]22 - 05/28/22 [facility] Adult [address] [place] [address]- Allergies, Adverse Reactions, Alerts Substance Reaction Severity [...] vaccine, inactivated 05/10/07 Jarrett rded SARS-CoV-2 mRNA (aecdapf-whfu-tcpvr) vax 08/30/21 Recorded SARS-CoV-2 (COVID-19) mRNA BNT-162b2 vac 01/02/21 Recorded SARS-CoV-2 (COVID-19) mRNA BNT-162b2 vac 12/02/20 Recorded Fluvirin (oldterm) 8 03/22/15 Given Fluzone Preservative-Free (oldterm) 9 03/12/12 Giv en pneumococcal 23-valent vaccine 10/08/11 Given tetanus/diphtheria/pertussis, acel(Tdap) 09/08/11 Given tetanus/diphtheria/pertussis, acel(Tdap) 12/17/06 Recorded influ virus vac, H1N1, inactive(oldterm) 10 05/08/11 Given hepatitis B adult vaccine 06/14/02 Recorded 1Result Comment: [id number] 2Result Comment: [id number] 3Result Comment: [id number] 4Result Comment: [id number] 5Result Comment: [07/08/2017] [id number] 6Admin Note: [facility] 7Admin Note: [facility] [...] Gm, 4 Refills, Maintenance, 04/28/22 13:11:00 EDT, [facility], 17, INHALE 2 PUFFS BY MOUTH EVERY FOUR HOURS NEEDED FOR WHEEZING... Start Date: 04/28/22 Status: Ordered cloNIDine 0.1 mg oral tablet See Instructions, TAKE 1 TABLET BY MOUTH TWICE A DAY NEEDED FOR FOR ANXIETY (VIAL), # 60 tablet,Refills 1, Maintenance, 04/28/22 13:11:00 EDT, Instructions Replace Required Details, Route to Pharmacy Electronically, [facility], 159, cm, 06... Start Date: 04/28/22 Status: Ordered colchicine 0.6 mg oral tablet 0.6 mg, 1, tablet, By Mouth, Daily, # 30 tablet, Refills 11, Tot. Refills 11, Maintenance, :00:00 EDT, Route to Pharmacy Electronically, [facility], Partial fill upon patient request [...] 01/11/22 7:25:00 EDT, Route to Pharmacy Electronically, [facility], Partial fill upon patient request if the prescri... Start Date: 01/11/22 Stop Date: 02/10/22 Status: Ordered duloxetine 20 mg oral enteric coated capsule 2 capsule = 40 mg, By Mouth, Daily at bedtime, # 60 capsule, 11 Refills, Maintenance, 06/25/21 12:00:00 EST, Capsule, [facility], Partial fill upon patient request [...] Replace Required Details, Route to Pharmacy Electronically, [facility], 165, cm, 06/25/21 11:35:00 EST, Height, 127, kg, 02/03/20 14:39:00 EDT, Dry Weight Start Date: 08/05/21 Status: Ordered penicillin V potassium 250 mg oral tablet 1 tablet, By Mouth, 2 times a day, CELLULITIS PROPHYLAXIS., # 60 tablet, 6 Refills, [facility], 165, cm, 11/08/21 10:02:00 EDT, Height, 127, kg, 02/03/20 14:39:00 EDT, Dry Weight Start Date: 11/15/21 Status: Ordered rOPINIRole 0.5 mg oral tablet 1 tablet, By Mouth, 3 times a day, # 90 tablet, 5 Refills, 03/07/22 6:14:00 EDT, [facility], 159, cm, 01/11/22 15:15:00 EDT, Height, 98.8, kg, 01/10/22 9:12:00 EDT, Dry Weight Start Date: 03/07/22 Status: Ordered rosuvastatin 10 mg oral tablet See Instructions, TAKE 1 TABLET BY MOUTH DAILY, # 90 tablet, 1 Refills, Maintenance, 04/04/22 11:35:00 EDT, [facility], 159, cm, 01/11/22 15:15:00 EDT, Height, 98.8, kg, 01/10/22 9:12:00 EDT,Dry Weight Start Date: 04/04/22 Status: Ordered Symbicort 80mcg/4.5mcg Inhaler See Instructions, INHALE 2 PUFFS BY MOUTH TWICE A DAY RINSE MOUTH AND THROAT AFTER USE, # 10.2 Gm, Refills 5, Instructions Replace Required Details, Route to Pharmacy Electronically, [id number], [facility], 159, cm, 01/11/22 15:15:00 EDT... Start Date: 02/13/22 Status: Ordered warfarin 1 mg oral tablet See Instructions, Take 1-10 tablets By Mouth Daily as directed by NEOAvinash, # 150 tablet, 0 Refills, Maintenance, 01/11/22 7:24:00 EDT, Tablet, [facility], Partial fill upon [...] Confirmed Active Gastric banding status Confirmed Active senior living current use of opiate analgesic Confirmed Active [...] Female Patient Care team information Personnel Name: Krishan GRIDER, Eulogio Molina Address: Address: [address] [place] [address]
--- OUTSIDE RECORDS SUMMARY | 2024-01-02 21:17 | XMS_ITS | Continuity of Care Document ---
Author Organization [facility] Valerie n's [facility] Address [address] [place] [address], [address] [place] [address]- Care Team Providers Care Buttermaker Helper Name Role Phone Fuentes Garcia MD Primary Care Physician [facility] Date[facility]14[facility]19 - 09[facility]11[facility] [address] [facility], [address] [place] [address]- Attending Physician: Not on Staff, Attending MD [...] H1N1, inactive(oldterm) 7 05/08/11 Given 1Result Comment: [id number] 2Result Comment: [07/08/2017] [id number] 3Admin Note: [facility] 4Admin Note: [facility] [...] Maintenance, 07/18/19 9:13:00 EST, [facility] [address] [place] [address], 162, cm, 05/23/19 11:50:00 EDT, Height, 116.4, kg, 05/04/19 11:52:00 EDT, Dry Weight Start Date: 07/18/19 Stop Date: 07/19/19 Status: Ordered chlorthalidone 25 mg oral tablet 25 mg, 1, tablet, By Mouth, Daily, # 30 tablet, Refills 2, Tot. Refills 2, Maintenance, 06/17/19 14:30:22 EST, Route to Pharmacy Electronically, [facility]- [id number], [facility] [address] [facility], please schedule appt for further refills Start Date: 06/17/19 Status: Ordered Claritin 10 mg oral tablet 10 mg, 1, tablet, By Mouth, Daily, for 30 days, # 30 tablet, Refills 11, Tot. Refills 11, Acute 05/11/20 17:36:41 EDT, 05/17/19 17:36:41 EDT, Route to Pharmacy Electronically, [id number], [facility] REINOSO [address] Start Date: 05/17/19 Stop Date: 05/11/20 [...] mL, 5 Refills, Maintenance, 10/01/18 10:08:42 EST, [facility], 2 sprays Nares, Both 2 times a [...] 12/08/18 12:09:04 EDT, Route to Pharmacy Electronically, [facility]-[id number], [facility] [address] [facility] Start Date: 12/08/18 Status: Ordered [...] 1 tablet by mouth twice a day, [facility] Start Date: 05/17/19 Status: Ordered penicillin [...] NEEDED FOR WHEEZING - REPLACES [facility], AMEENA [address] Start Date: 01/24/19 Status: Ordered Vitamin [...] long-term use(Confirmed) Active Gastric banding status(Confirmed) Active medical terminologist current use of 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
--- OUTSIDE RECORDS SUMMARY | 2024-01-02 21:17 | XMS_ITS | Continuity of Care Document ---
Author Organization [facility] Nolberto lt Address [address] [place] [address]- Care Team Providers Care Employment Services Director Name Role Phone Fuentes Garcia MD Primary Care Physician [phone] Encounter [facility] Date(s): 05/20/21 - 06/19/21 [facility] Adult [address] [place] [address]- Allergies, Adverse Reactions, Alerts Substance Reaction Severity [...] B adult vaccine 06/14/02 Recorded 1Result Comment: [id number] 2Result Comment: [id number] 3Result Comment: [07/08/2017] [id number] 4Admin Note: [facility] 5Admin Note: [facility] [...] 8.5 Gm, 5 Refills, 05/29/21 17:13:00 EDT, [facility] #[id number], 17, INHALE 2 PUFFS BY MOUTH EVERY [...] 11 Refills, Maintenance, 10/31/20 14:14:00 EDT, Cream, [facility] #[id number], Partial fill upon patient request if the [...] 04/09/21 14:32:00 EDT, Route to Pharmacy Electronically, [facility], 165, cm, 02/28/21 14:22:00 EDT, Height, [...] PMR, history of smoking fax to : [phone], 04... Start Date: 10/26/20 Status: Ordered Disposable [...] Gm, 3 Refills, Maintenance, 06/22/20 14:58:00 EST, [facility] #[id number], 165, cm, 06/07/20 13:52:00 EST, Height, 127, [...] Refills, Maintenance, 05/24/21 16:13:00 EDT, REC Powder, [facility] #[id number], Partial fill upon patient request if the [...] mL, 5 Refills, Maintenance, 10/01/18 10:08:42 EST, [place], 2 sprays Nares, Both 2 times a [...] 08/02/20 16:13:00 EST, Route to Pharmacy Electronically, [facility] #[id number], D/C RX ON FILE FOR CLARIT[place], 165, [...] tablet, 6Refills, Maintenance, 05/21/21 11:19:00 EDT, Tablet, [facility], Partial fill upon patient request if the prescription is for a schedule II... Start Date: 05/21/21 Status: Ordered methenamine hippurate 1 gm oral tablet 1 tablet = 1 Gm, By Mouth, 2 times a day, # 60 tablet, 11 Refills, Maintenance, 07/05/21 14:00:00 EST, [facility], Partial fill upon patient request if the prescription is for a schedule II opioid drug., 165, cm, 02/28/21 14:22:00 EDT, Height,... Start Date: 07/05/21 Status: Ordered methenamine hippurate 1 gm oral tablet 1 tablet = 1 Gm, By Mouth, 2 times a day, # 60 tablet, 1 Refills, Hard Stop 07/05/21 14:00:00 EST, 07/12/20 13:56:00 EST, [facility] #[id number], Partial fill upon patient request if the prescription is for a schedule II opioid drug., 165, cm, 12... Start Date: 07/12/20 Stop Date: 07/05/21 Status: Ordered Metoprolol Tartrate 25 mg oral tablet 1 tablet, By Mouth, 2 times a day, # 60 tablet, 2 Refills, Maintenance, 03/07/21 10:08:00 EDT, [facility] #[id number], 165, cm, 02/28/21 14:22:00 EDT, Height, 127, kg, 02/03/20 14:39:00 EDT, DryWeight Start Date: 03/07/21 Status: Ordered Mitigare 0.6 mg oral capsule 1 capsule, By Mouth, Daily, # 30 capsule, 11 Refills, Maintenance, 12/31/20 16:51:00 EDT, [facility] #[id number], 165, cm, 11/19/20 11:32:00 EDT, Height, 127, [...] 0 Refills, Maintenance, 04/11/21 9:00:00 EDT, Patch, [facility], Partial fill upon patient request, 165, cm, 02/28/21 14:22:00 EDT, Height, 127, kg, 02/03/20 14:39:00 EDT, Dry Weight Start Date: 04/11/21 Stop Date: 05/23/21 Status: Ordered NuLYTELY with Flavor Packs oral powder for reconstitution See Instructions, Drink 240mL every 15-20 minutes until first half is gone. Repeat 6 hours prior toprocedure., # 4,000 mL, 0 Refills, Maintenance, 06/28/20 17:09:00 EST, [facility] #[id number],Partial fill upon patient request if the prescript... Start Date: 06/28/20 Status: Ordered oxyCODONE 10 mg oral tablet 1 tablet = 10 mg, By Mouth, Every 8 hours, DX Z79.891 G89.29 M47.816 OK TO FILL LESS THAN PRESCRIBED AMOUNT, # 84 tablet, 0 Refills, Maintenance, 06/13/21 17:00:00 EST, Tablet, [facility] #[id number], 06/18/21, 165, cm, 05/21/21 10:54:00 EDT, He... Start Date: 06/13/21 Stop Date: 07/11/21 Status: Ordered oxyCODONE 5 mg oral tablet 10 mg, 2, tablet, By Mouth, Every 8 hours, DX Z79.891 G89.29 M47.816 OK TO FILL LESS THAN PRESCRIBED AMOUNT, # 168 tablet, Refills 0, Tot. Refills 0, Maintenance, 03/25/21 16:45:00 EDT, Route to Pharmacy Electronically, [facility] #[id number], D... Start Date: 03/25/21 Stop Date: 04/22/21 Status: Ordered penicillin V potassium 250 mg oral tablet 1 tablet = 250 mg, By Mouth, 2 times a day, Cellulitis prophylaxis, # 60 tablet, 11 Refills, Maintenance, 10/30/20 12:09:00 EDT, [facility] #[id number], 165, cm, 10/19/20 8:59:00 EDT, Height, 127, kg, 02/03/20 14:39:00 EDT, Dry Weight Start Date: 10/30/20 Status: Ordered predniSONE 5 mg oral tablet 1 tablet = 5 mg, By Mouth, Daily, # 30 tablet, 0 Refills, Maintenance, 01/11/21 14:20:00 EDT, Tablet, [facility] #[id number], Partial fill upon patient request if the [...] a day, # 90 tablet, 0 Refills, [facility], 165, cm, 05/21/21 10:54:00 EDT, Height, 127, kg, 02/03/20 14:39:00 EDT, Dry Weight Start Date: 06/11/21 Status: Ordered rosuvastatin 10 mg oral tablet 1 tablet = 10 mg, By Mouth, Daily, # 90 tablet, 1 Refills, Maintenance, 05/20/21 15:53:00 EDT, Tablet, [facility], d/c rx for capsules, 165, cm, 02/28/21 14:22:00 EDT, Height, 127, kg, 02/03/20 14:39:00 EDT, Dry Weight Start Date: 05/20/21 Status: Ordered Trulicity Pen 0.75 mg/0.5 mL subcutaneous solution 0.5 mL = 0.75 mg, Subcutaneous Injection, Every week, take on same day every week, rotate injectionsites E11.9, # 2 mL, 1 Refills, Maintenance, 05/21/21 11:18:00 EDT, Solution, [facility] #[id number], Partial fill upon patient request if the... Start Date: 05/21/21 Status: Ordered warfarin 2.5 mg oral tablet See Instructions, Dosing Subject To Change per INR Result per MD, # 30 each, 6 Refills, Maintenance, 06/12/21 17:09:00 EST, Tablet, [facility], Dosing Subject To Change per INR Result per MD,165, cm, 05/21/21 10:54:00 EDT, Height, 127, kg, 07... Start Date: 06/12/21 Status: Ordered warfarin 5 mg oral tablet See Instructions, Dosing Subject To Change Per INR Result per MD, # 30 each, 6 Refills, Maintenance, 06/12/21 17:05:00 EST, Tablet, [facility], PLEASE GIVE BOTH 5MG TABLETS AND [...] long-term use(Confirmed) Active Gastric banding status(Confirmed) Active assisted current use of 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
--- OUTSIDE RECORDS SUMMARY | 2024-01-02 21:17 | XMS_ITS | Continuity of Care Document ---
Author Organization [facility] Nolberto Address [address] [place] [address]- Care Team Providers Care Toll Bridge Operator Name Role Phone Krishan GRIDER, Eulogio Molina Primary Care Physician Encounter [facility] Date(s): 09/04/22 - 10/04/22 [facility] Adult [address] [place] [address]- Attending Physician: Desire Velasquez Admitting Physician: AdmDesire andre Referring Physician: [id number] Allergies, Adverse Reactions, Alerts Substance Reaction Severity [...] vaccine, inactivated 05/10/07 Jarrett rded SARS-CoV-2 mRNA (dysitmo-thsx-qqnme) vax 08/30/21 Recorded SARS-CoV-2 (COVID-19) mRNA BNT-162b2 vac 01/02/21 Recorded SARS-CoV-2 (COVID-19) mRNA BNT-162b2 vac 12/02/20 Recorded Fluvirin (oldterm) 8 03/22/15 Given Fluzone Preservative-Free (oldterm) 9 03/12/12 Giv en pneumococcal 23-valent vaccine 10/08/11 Given tetanus/diphtheria/pertussis, acel(Tdap) 09/08/11 Given tetanus/diphtheria/pertussis, acel(Tdap) 12/17/06 Recorded influ virus vac, H1N1, inactive(oldterm) 10 05/08/11 Given hepatitis B adult vaccine 06/14/02 Recorded 1Result Comment: [id number] 2Result Comment: [id number] 3Result Comment: [id number] 4Result Comment: [id number] 5Result Comment: [07/08/2017] [id number] 6Admin Note: [facility] 7Admin Note: [facility] [...] Gm, 4 Refills, Maintenance, 09/08/22 14:55:00 EST, [facility], 30, INHALE 2 PUFFS BY MOUTH EVERY FOUR HOURS NEEDED FOR WHEEZING... Start Date: 09/08/22 Status: Ordered cloNIDine 0.1 mg oral tablet 1, tablet, By Mouth, 2 times a day, PRN, # 56 tablet, Refills 2, Maintenance, NEEDED FOR FOR ANXIETY (VIAL) ^VIAL, 10/03/22 11:23:00 EST, Route to Pharmacy Electronically, [facility], 160,cm, 09/09/22 14:31:00 EST, Height, 98.8, kg, 07/17/... Start Date: 10/03/22 Status: Ordered colchicine 0.6 mg oral tablet 1, tablet, By Mouth, Daily, ^1R1., # 30 tablet, Refills 11, Maintenance, 09/10/22 5:31:00 EST, Route to Pharmacy Electronically, [facility], 160, cm, 09/09/22 14:31:00 EST, Height, 98.8, kg, 07/17/22 8:58:00 EST, Dry Weight Start Date: 09/10/22 Status: Ordered docusate sodium 100 mg oral capsule 100 mg, 1, capsule, By Mouth, 2 times a day, hold for loose stool, # 60 capsule, Refills 0, Tot. Refills 0, Maintenance, 01/11/22 7:25:00 EDT, Route to Pharmacy Electronically, [facility], Partial fill upon patient request if the prescri... Start Date: 01/11/22 Stop Date: 02/10/22 Status: Ordered duloxetine 20 mg oral enteric coated capsule 2 capsule = 40 mg, By Mouth, Daily at bedtime, # 60 capsule, 11 Refills, Maintenance, 06/25/21 12:00:00 EST, Capsule, [facility], Partial fill upon patient [...] 07/17/22 17:07:00 EST, Route to Pharmacy Electronically, [facility], 160, cm, 07/17/22 12:03:00 EST, [...] 5 Refills, Maintenance, 07/29/22 6:50:00 EST, Tablet, [facility], Partial fill upon patient request [...] tablet, 0 Refills, Maintenance, 09/04/22 16:29:00 EST, [facility], Partial fill upon patient request if the prescription is for a schedule II opioid drug., 160, cm, 09/04/22 16:17:00 EST, Height, 98.8, k... Start Date: 09/04/22 Status: Ordered rOPINIRole 0.5 mg oral tablet See Instructions, TAKE 1 TABLET BY MOUTH THREE TIMES DAILY^1R1,1R3,1R4, # 90 tablet, 5 Refills, Maintenance, 07/24/22 23:41:00 EST, [facility], 160, cm, 07/18/22 11:39:00 EST, Height, 98.8, kg, 07/17/22 8:58:00 EST, Dry Weight Start Date: 07/24/22 Status: Ordered rosuvastatin 10 mg oral tablet 1 tablet, By Mouth, Daily, ^1R1., # 30 tablet, 5 Refills, Maintenance, 09/10/22 5:31:00 EST, [facility], 160, cm, 09/09/22 14:31:00 EST, Height, 98.8, kg, 07/17/22 8:58:00 EST, Dry Weight Start Date: 09/10/22 Status: Ordered Symbicort 80mcg/4.5mcg Inhaler See Instructions, INHALE 2 PUFFS BY MOUTH TWICE A DAY RINSE MOUTH AND THROAT AFTER USE, # 10.2 Gm, Refills 5, Maintenance, 07/30/22 21:16:00 EST, Instructions Replace Required Details, Route to Pharmacy Electronically, [id number], [facility]... Start Date: 07/30/22 Status: Ordered warfarin 1 mg oral tablet See Instructions, Take 1-10 tabs daily as directed by [facility]., # 150 tablet, 0 Refills, Maintenance, 07/18/22 8:55:00 EST, Tablet, [facility], Partial fill upon patient request if [...] Active Gastric banding status Confirmed Active intermediate card tender current use of opiate analgesic Confirmed Active [...] Response Smoking Status Current every day sm ayesha entered on: 05/04/18 Sex Female Hospital Consult note * Event Display: Inpatient Consult Note, Non-BH Authored Date: * Event Display: Inpatient Consult Note, Non-BH Authored Date: * Event Display: Inpatient Consult Note, Non-BH Authored Date: * Event Display: Inpatient Consult Note, Non-BH Authored Date: Note * Event Display: Cardiology Office Note, Non-BH Authored Date: * Event Display: MRI Spine, Non- BH Authored Date: * Event Display: Cardiology Office Note, Non-BH Authored Date: * Event Display: Non BH Lab Results Authored Date: * Courtney Onofre.: PERFORM Event Display: Radiology Results Scanned Authored Date: * Marley Goldsmith: PERFORM Event Display: Radiology Results Scanned Authored Date: * Maxine Cuevas: PERFORM, SIGN, VERIFY Event Display: Patient Education/Instruction Authored Date: [facility] Carr Clinical Summary Person Information [...] primary care provider, you may find a [facility] provider by calling [facility] [employer] [facility] at [phone]. Patient Education Information Follow-up Details: Patient Education Material: * Tamie Mccormick: PERFORM Event Display: Radiology Results Scanned Authored Date: Cardiology Consult note * Event Display: Consult Note Cardiology Authored Date: Patient Care team information Care Team Personnel Name: Sandra Wills NP Position: [facility] PCO Associate Professional Member Role: Primary Care Nurse Address: Address: [address] [place] [address]- Name: Marley Alejo RN Position: [facility] RN Member Role: Primary Care Nurse Name: Eulogio Nickerson MD Position: [facility] Primary Care Physician Member Role: PCP Address: Address: [address] [place] [address]- [place] Name: Alma Delia Fonseca PharmD Position: [facility] Associate Professional Member Role: Lifetime Consulting Provider Address: Address: [address] [place] [address] [facility] [place] [address]- [place] Name: Yolis Mattson RN Position: [facility] RN Member Role: Primary Care Nurse Name: Priscila Garzon RN Position: [facility] RN Member Role: Primary Care Nurse Name: Renea Mart RN Position: [facility] RN Member Role: Primary Care Nurse Care Team Related Persons Name: FAUZIA JANSEN Address: home [address] [place] [address] Name: AURELIA SHETH Address: [address] [place] [address] Name: BRE OSORIO Address: [address] [place] [address]
--- OUTSIDE RECORDS SUMMARY | 2024-01-02 21:17 | XMS_ITS | Continuity of Care Document ---
Author Organization [facility] Nolberto Address [address] [place] [address]- Care Team Providers Care Import Customer Service Manager Name Role Phone Fuentes Garcia MD Primary Care Physician [phone] [place] [facility] Date[place]s): 10/19/20 - 10/26/20 [facility] Adult [address] [place] [address]- Encounter Diagnosis PMR (polymyalgia rheumatica)(Discharge Diagnosis) - 10/19/20 Attending Physician: Fuentes Garcia MD Allergies, Adverse [...] H1N1, inactive(oldterm) 8 05/08/11 Given 1Result Comment: [id number] 2Result Comment: [id number] 3Result Comment: [07/08/2017] [id number] 4Admin Note: [facility] 5Admin Note: [facility] [...] 5 Refills, Maintenance, 07/03/20 9:16:00 EST, Cream, [facility] #[id number], Partial fill upon patient request if the [...] 06/04/20 12:56:00 EST, Route to Pharmacy Electronically, [facility] #[id number], please schedule appt for further refills, 165, cm, 05/16/20 14:15:00 EDT, Hei... Start Date: 06/04/20 Status: Ordered Claritin 10 mg oral tablet 10 mg, 1, tablet, By Mouth, Daily, for 90 days, # 90 tablet, Refills 3, Tot. Refills 3, Acute 07/28/21 15:22:00 EST, 08/02/20 15:22:00 EST, Route to Pharmacy Electronically, [facility] #[id number], 165, cm, 07/31/20 14:32:00 EST, Height, 127, kg,... Start Date: 08/02/20 Stop Date: 07/28/21 Status: Ordered colchicine 0.6 mg oral tablet See Instructions, take 1 tablet by mouth once daily if needed for PSEUDOGOUT pain, # 30 tablet, Refills 5, Tot. Refills 5, Soft Stop, 01/05/20 8:41:00 EDT, Instructions Replace Required Details, Route to Pharmacy Electronically, [facility] #... Start Date: 01/05/20 Status: Ordered COVID 19 vaccine COVID 19 [...] PMR, history of smoking fax to : [phone], 04... Start Date: 10/26/20 Status: Ordered Disposable [...] Gm, 3 Refills, Maintenance, 06/22/20 14:58:00 EST, [facility] #[id number], 165, cm, 06/07/20 13:52:00 EST, Height, 127, [...] mL, 5 Refills, Maintenance, 10/01/18 10:08:42 EST, [place], 2 sprays Nares, Both 2 times a [...] 08/02/20 16:13:00 EST, Route to Pharmacy Electronically, [facility] #[id number], D/C RX ON FILE FOR ABRAM, 165, [...] tablet, 1 Refills, Maintenance, 07/12/20 13:56:00 EST, [facility] #[id number], Partial fill upon patient request if the prescription is for a schedule II opioid drug., 165, cm, 07/11/20 15:24:00 EST,... Start Date: 07/12/20 Stop Date: 07/05/21 Status: Ordered metoprolol 25 mg oral tablet 25 mg, 1, tablet, By Mouth, 2 times a day, # 60 tablet, Refills 5, Tot. Refills 5, Maintenance, 09/22/20 13:59:00 EST, Route to Pharmacy Electronically, [facility] #[id number], 165, cm, 07/31/2113:32:00 EST, Height, 127, kg, [...] 0 Refills, Maintenance, 06/18/20 16:57:00 EST, Patch, [facility] #[id number], Partial fill upon patient request, 165, cm, 06/07/20 13:52:00 EST, Height, 127, kg, 02/03/20 14:39:00 EDT, Dry Weight Start Date: 06/18/20 Stop Date: 07/30/20 Status: Ordered NuLYTELY with Flavor Packs oral powder for reconstitution See Instructions, Drink 240mL every 15-20 minutes until first half is gone. Repeat 6 hours prior toprocedure., # 4,000 mL, 0 Refills, Maintenance, 06/28/20 17:09:00 EST, [facility] #[id number],Partial fill upon patient request if the prescript... Start Date: 06/28/20 Status: Ordered oxyCODONE 10 mg oral tablet 1 tablet = 10 mg, By Mouth, Every 8 hours, DX Z79.891 G89.29 M47.816 OK TO FILL LESS THAN PRESCRIBED AMOUNT, # 84 tablet, 0 Refills, Maintenance, 10/08/20 16:54:00 EDT, Tablet, [facility] #[id number], 10/09/20, 165, cm, 07/31/20 14:32:00 EST, He... [...] 0 Refills, Maintenance, 10/12/20 9:55:00 EDT, Tablet, [facility] #[id number], Partial fill upon patient request if the [...] 5 Refills, Maintenance, 04/30/20 15:13:00 EDT, Tablet, [facility] #[id number], 165, cm, 04/30/20 14:30:00 EDT, Height, 127, kg, 02/03/20 14:39:00 EDT, Dry Weight Start Date: 04/30/20 Status: Ordered rosuvastatin 10 mg oral tablet 1 tablet = 10 mg, By Mouth, Daily, # 90 tablet, 3 Refills, Maintenance, 05/03/20 16:35:00 EDT, Tablet, [facility] #[id number], d/c rx for capsules, 165, cm, 04/30/20 14:30:00 EDT, Height, 127, kg, 02/03/20 14:39:00 EDT, Dry Weight Start Date: 05/03/20 Status: Ordered Ventolin HFA 108 mcg/inh inhalation aerosol with adapter 2 puffs, Inhalation, Every 4 hours, PRN Wheezing/Shortness of Breath, # 1 each, 11 Refills, Soft Stop, 01/19/20 11:46:00 EDT, [facility] #[id number], 165, cm, 01/16/20 6:17:00 EDT, Height, 128.1, kg, 01/16/20 6:17:00 EDT, Dry Weight Start Date: 01/19/20 Status: Ordered warfarin 5 mg oral tablet 1 tablet = 5 mg, By Mouth, Daily, dosing subject to change pending inr lab values, # 30 tablet, 11 Refills, Maintenance, 08/31/20 15:36:00 EST, Tablet, [facility] #[id number], 165, cm, 07/31/20 14:32:00 EST, Height, 127, [...] long-term use(Confirmed) Active Gastric banding status(Confirmed) Active intermission coordinator current use of 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 Dates Health Status Cl inical Service Informant PMR (polymyalgia rheumatica) Discharge Diagnosis 10/19/20 Vital Signs Most recent to oldest [Reference Range]: 1 Height 165 cm (10/19/20 8:59 AM) Weight 127.0 kg (10/19/20 8:59 AM) Body Mass Index [18.5-24.99] 46.65 *>HHI* (10/19/20 8:59 AM) Weight Obtained Via Standing scale (10/19/20 8:59 AM) Social History Social History Type Response Smoking Status 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
--- OUTSIDE RECORDS SUMMARY | 2024-01-02 21:17 | XMS_ITS | Continuity of Care Document ---
Author Organization 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 Name Role Phone Krishan GRIDER, Eulogio Molina Primary Care Physician Encounter [facility] Date(s): 09/09/22 - 10/09/22 [facility] Adult [address] [place] [address]- Allergies, Adverse Reactions, Alerts Substance Reaction Severity [...] vaccine, inactivated 05/10/07 Jarrett rded SARS-CoV-2 mRNA (apxkggy-vcol-gdzyj) vax 08/30/21 Recorded SARS-CoV-2 (COVID-19) mRNA BNT-162b2 vac 01/02/21 Recorded SARS-CoV-2 (COVID-19) mRNA BNT-162b2 vac 12/02/20 Recorded Fluvirin (oldterm) 8 03/22/15 Given Fluzone Preservative-Free (oldterm) 9 03/12/12 Giv en pneumococcal 23-valent vaccine 10/08/11 Given tetanus/diphtheria/pertussis, acel(Tdap) 09/08/11 Given tetanus/diphtheria/pertussis, acel(Tdap) 12/17/06 Recorded influ virus vac, H1N1, inactive(oldterm) 10 05/08/11 Given hepatitis B adult vaccine 06/14/02 Recorded 1Result Comment: [id number] 2Result Comment: [id number] 3Result Comment: [id number] 4Result Comment: [id number] 5Result Comment: [07/08/2017] [id number] 6Admin Note: [facility] 7Admin Note: [facility] [...] Gm, 4 Refills, Maintenance, 09/08/22 14:55:00 EST, [facility], 30, INHALE 2 PUFFS BY MOUTH EVERY FOUR HOURS NEEDED FOR WHEEZING... Start Date: 09/08/22 Status: Ordered cloNIDine 0.1 mg oral tablet 1, tablet, By Mouth, 2 times a day, PRN, # 56 tablet, Refills 2, Maintenance, NEEDED FOR FOR ANXIETY (VIAL) ^VIAL, 10/03/22 11:23:00 EST, Route to Pharmacy Electronically, [facility], 160,cm, 09/09/22 14:31:00 EST, Height, 98.8, kg, 07/17/... Start Date: 10/03/22 Status: Ordered colchicine 0.6 mg oral tablet 1, tablet, By Mouth, Daily, ^1R1., # 30 tablet, Refills 11, Maintenance, 09/10/22 5:31:00 EST, [facility], 160, cm, 09/09/22 14:31:00 EST, Height, 98.8, kg, 07/17/22 8:58:00 EST, Dry Weight Start Date: 09/10/22 Status: Ordered docusate sodium 100 mg oral capsule 100 mg, 1, capsule, By Mouth, 2 times a day, hold for loose stool, # 60 capsule, Refills 0, Tot. Refills 0, Maintenance, 01/11/22 7:25:00 EDT, Route to Pharmacy Electronically, [facility], Partial fill upon patient request if the prescri... Start Date: 01/11/22 Stop Date: 02/10/22 Status: Ordered duloxetine 20 mg oral enteric coated capsule 2 capsule = 40 mg, By Mouth, Daily at bedtime, # 60 capsule, 11 Refills, Maintenance, 06/25/21 12:00:00 EST, Capsule, [facility], Partial fill upon patient request [...] 07/17/22 17:07:00 EST, Route to Pharmacy Electronically, [facility], 160, cm, 07/17/22 12:03:00 EST, Height, [...] 5 Refills, Maintenance, 07/29/22 6:50:00 EST, Tablet, [facility], Partial fill upon patient request if [...] tablet, 0 Refills, Maintenance, 09/04/22 16:29:00 EST, [facility], Partial fill upon patient request if the prescription is for a schedule II opioid drug., 160, cm, 09/04/22 16:17:00 EST, Height, 98.8, k... Start Date: 09/04/22 Status: Ordered rOPINIRole 0.5 mg oral tablet See Instructions, TAKE 1 TABLET BY MOUTH THREE TIMES DAILY^1R1,1R3,1R4, # 90 tablet, 5 Refills, Maintenance, 07/24/22 23:41:00 EST, [facility], 160, cm, 07/18/22 11:39:00 EST, Height, 98.8, kg, 07/17/22 8:58:00 EST, Dry Weight Start Date: 07/24/22 Status: Ordered rosuvastatin 10 mg oral tablet 1 tablet, By Mouth, Daily, ^1R1., # 30 tablet, 5 Refills, Maintenance, 09/10/22 5:31:00 EST, [facility], 160, cm, 09/09/22 14:31:00 EST, Height, 98.8, kg, 07/17/22 8:58:00 EST, Dry Weight Start Date: 09/10/22 Status: Ordered Symbicort 80mcg/4.5mcg Inhaler See Instructions, INHALE 2 PUFFS BY MOUTH TWICE A DAY RINSE MOUTH AND THROAT AFTER USE, # 10.2 Gm, Refills 5, Maintenance, 07/30/22 21:16:00 EST, Instructions Replace Required Details, Route to Pharmacy Electronically, [id number], [facility]... Start Date: 07/30/22 Status: Ordered warfarin 1 mg oral tablet See Instructions, Take 1-10 tabs daily as directed by NEOS., # 150 tablet, 0 Refills, Maintenance, 07/18/22 8:55:00 EST, Tablet, 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 Confirmed [...] sm ayesha entered on: 05/04/18 Sex Female Patient Care team information Care Team Personnel Name: Sandra Wills NP Position: [facility] PCO Associate Professional Member Role: Primary Care Nurse Address: Address: [address] [place] [address] [place] [address]- [place] Name: Marley Alejo RN Position: [facility] RN Member Role: Primary Care Nurse Name: Eulogio Nickerson MD Position: [facility] Primary Care Physician Member Role: PCP Address: Address: [address] [place] [id number]- [place] Name: Alma Delia Fonseca PharmD Position: [facility] Associate Professional Member Role: Lifetime Consulting Provider Address: Address: [address] [place] [address] [place] [address]- [place] Name: Yolis Mattson RN Position: [facility] RN Member Role: Primary Care Nurse Name: Priscila Garzon RN Position: [facility] RN Member Role: Primary Care Nurse Name: Renea Mart RN Position: S RN Member Role: Primary Care Nurse Care Team Related Persons Name: FAUZIA JANSEN Address: home [address] [place] [address] Name: UARELIA SHETH Address: home [address] [place] [address] Name: BRE OSORIO Address: home [address] [place] [address]
--- OUTSIDE RECORDS SUMMARY | 2024-01-02 21:17 | XMS_ITS | Continuity of Care Document ---
Author Organization [facility] Address [address] [place] [address]- Care Team Providers Care Hook Up Name Role Phone Fuentes Garcia MD Primary Care Physician Encounter [facility] Date(s): 11/09/19 - 11/19/19 [facility] [address] [address]- [facility] Attending Physician: Desire Velasquez Admitting Physician: AdmDesire andre Referring Physician: AdmtrDesire Allergies, Adverse Reactions, Alerts [...] H1N1, inactive(oldterm) 7 05/08/11 Given 1Result Comment: [id number] 2Result Comment: [07/08/2017] 45214-653-60 3Admin Note: [facility] 4Admin Note: [facility] -[facility] 5Admin Note: Given at [facility] 6Admin Note: [...] 14:30:22 EST, Route to Pharmacy Electronically, N[facility]DP_ID- [id number], [facility] - [address] [place] [address], please schedule appt for further refills Start Date: 06/17/19 Status: Ordered Claritin 10 mg oral tablet 10 mg, 1, tablet, By Mouth, Daily, for 30 days, # 30 tablet, Refills 11, Tot. Refills 11, Acute 05/11/20 17:36:41 EDT, 05/17/19 17:36:41 EDT, Route to Pharmacy Electronically, N[facility]DP_ID-[id number], [facility] [address] [place] [address] Start Date: 05/17/19 Stop Date: 05/11/20 Status: [...] mL, 5 Refills, Maintenance, 10/01/18 10:08:42 EST, [place], 2 sprays Nares, Both 2 times a [...] 09/28/19 11:53:00 EST, Route to Pharmacy Electronically, [id number], 162, cm, 09/21/2011:01:00 EST, Height, 116.4, kg, [...] AMOUNT, # 84 tablet, 0 Refills, Maintenance, 11/04/19 18:49:00 EDT, Tablet, [id number], 11/08/19, 162, cm, 09/21/19 12:01:00 EST, He... 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
--- OUTSIDE RECORDS SUMMARY | 2024-01-02 21:17 | XMS_ITS | Continuity of Care Document ---
Author Organization [facility] Address [address] [place] [address]- Care Team Providers Care Well Service Derrick Worker Name Role Phone Fuentes Garcia MD Primary Care Physician Encounter [facility] Date(s): 02/08/21 - 07/10/[address] [address] Discharge Disposition: A-D/C Home Attending Physician: Fuentes Garcia MD Admitting Physician: [...] B adult vaccine 06/14/02 Recorded 1Result Comment: [id number] 2Result Comment: [id number] 3Result Comment: [id number] 4Result Comment: [07/08/2017] [id number] 5Admin Note: [facility] 6Admin Note: [facility] [...] 8.5 Gm, 5 Refills, 05/29/21 17:13:00 EDT, [facility] #[id number], 17, INHALE 2 PUFFS BY MOUTH EVERY [...] 11 Refills, Maintenance, 10/31/20 14:14:00 EDT, Cream, [facility] #[id number], Partial fill upon patient request if the [...] tablet, Refills 3, Route to Pharmacy Electronically, [facility], 165, cm, 06/25/21 11:35:00 EST, Height, [...] PMR, history of smoking fax to : [phone], 04... Start Date: 10/26/20 Status: Ordered Disposable [...] 11 Refills, Maintenance, 06/25/21 12:00:00 EST, Capsule, [facility], Partial fill upon patient request if [...] Gm, 3 Refills, Maintenance, 06/22/20 14:58:00 EST, [facility] #[id number], 165, cm, 06/07/20 13:52:00 EST, Height, 127, [...] Refills, Maintenance, 05/24/21 16:13:00 EDT, REC Powder, [facility] #[id number], Partial fill upon patient request if the [...] mL, 5 Refills, Maintenance, 10/01/18 10:08:42 EST, [place], 2 sprays Nares, Both 2 times a [...] 08/02/20 16:13:00 EST, Route to Pharmacy Electronically, [facility] #[id number], D/C RX ON FILE FOR ABRAM, 165, [...] tablet, 6Refills, Maintenance, 05/21/21 11:19:00 EDT, Tablet[facility], Partial fill upon patient request if the prescription is for a schedule II... Start Date: 05/21/21 Status: Ordered methenamine hippurate 1 gm oral tablet 1 tablet = 1 Gm, By Mouth, 2 times a day, # 60 tablet, 11 Refills, Maintenance, 07/05/21 14:00:00 EST, [facility], Partial fill upon patient request if the prescription is for a schedule II opioid drug., 165, cm, 02/28/21 14:22:00 EDT, Height,... Start Date: 07/05/21 Status: Ordered Metoprolol Tartrate 25 mg oral tablet 1 tablet, By Mouth, 2 times a day, # 60 tablet, 3 Refills, [facility], 165, cm, 06/25/21 11:35:00 EST, Height, 127, kg, 02/03/20 14:39:00 EDT, Dry Weight Start Date: 07/09/21 Status: Ordered Mitigare 0.6 mg oral capsule 1 capsule, By Mouth, Daily, # 30 capsule, 11 Refills, Maintenance, 12/31/20 16:51:00 EDT, [facility][id number], 165, cm, 11/19/20 11:32:00 EDT, Height, 127, [...] 0 Refills, Maintenance, 04/11/21 9:00:00 EDT, Patch, [facility], Partial fill upon patient request, 165, cm, 02/28/21 14:22:00 EDT, Height, 127, kg, 02/03/20 14:39:00 EDT, Dry Weight Start Date: 04/11/21 Stop Date: 05/23/21 Status: Ordered NuLYTELY with Flavor Packs oral powder for reconstitution See Instructions, Drink 240mL every 15-20 minutes until first half is gone. Repeat 6 hours prior toprocedure., # 4,000 mL, 0 Refills, Maintenance, 06/28/20 17:09:00 EST, [facility] #[id number],Partial fill upon patient request if the prescript... Start Date: 06/28/20 Status: Ordered oxyCODONE 10 mg oral tablet 1 tablet = 10 mg, By Mouth, Every 8 hours, DX Z79.891 G89.29 M47.816 OK TO FILL LESS THAN PRESCRIBED AMOUNT, # 84 tablet, 0 Refills, Maintenance, 06/13/21 17:00:00 EST, Tablet, [facility] #[id number], 06/18/21, 165, cm, 05/21/21 10:54:00 EDT, He... Start Date: 06/13/21 Stop Date: 07/11/21 Status: Ordered oxyCODONE 5 mg oral tablet 10 mg, 2, tablet, By Mouth, Every 8 hours, DX Z79.891 G89.29 M47.816 OK TO FILL LESS THAN PRESCRIBED AMOUNT, # 168 tablet, Refills 0, Tot. Refills 0, Maintenance, 03/25/21 16:45:00 EDT, Route to Pharmacy Electronically, [facility] #[id number], D... Start Date: 03/25/21 Stop Date: 04/22/21 Status: Ordered penicillin V potassium 250 mg oral tablet 1 tablet = 250 mg, By Mouth, 2 times a day, Cellulitis prophylaxis, # 60 tablet, 11 Refills, Maintenance, 10/30/20 12:09:00 EDT, [facility] #[id number], 165, cm, 10/19/20 8:59:00 EDT, Height, 127, kg, 02/03/20 14:39:00 EDT, Dry Weight Start Date: 10/30/20 Status: Ordered predniSONE 5 mg oral tablet 1 tablet = 5 mg, By Mouth, Daily, # 30 tablet, 0 Refills, Maintenance, 01/11/21 14:20:00 EDT, Tablet, [facility] #[id number], Partial fill upon patient request if the prescription is for a schedule II opioid drug., 165, cm, 01/11/21 14:05:00 EDT,... Start Date: 01/11/21 Status: Ordered propranolol 20 mg oral tablet 20 mg, 1, tablet, By Mouth, 2 times a day, # 60 tablet, Refills 5, Tot. Refills 5, Maintenance, 06/25/21 11:57:00 EST, Route to Pharmacy Electronically, [facility], Partial fill upon patient request if [...] a day, # 90 tablet, 3 Refills, [facility], 165, cm, 06/25/21 11:35:00 EST, Height, 127, kg, 02/03/20 14:39:00 EDT, Dry Weight Start Date: 07/09/21 Status: Ordered rosuvastatin 10 mg oral tablet 1 tablet = 10 mg, By Mouth, Daily, # 90 tablet, 1 Refills, Maintenance, 05/20/21 15:53:00 EDT, Tablet, [facility], d/c rx for capsules, 165, cm, 02/28/21 14:22:00 EDT, Height, 127, kg, 02/03/20 14:39:00 EDT, Dry Weight Start Date: 05/20/21 Status: Ordered Trulicity Pen 0.75 mg/0.5 mL subcutaneous solution 0.5 mL = 0.75 mg, Subcutaneous Injection, Every week, take on same day every week, rotate injectionsites E11.9, # 2 mL, 1 Refills, Maintenance, 05/21/21 11:18:00 EDT, Solution, [facility] #[id number], Partial fill upon patient request if the... Start Date: 05/21/21 Status: Ordered warfarin 2.5 mg oral tablet See Instructions, Dosing Subject To Change per INR Result per MD, # 30 each, 6 Refills, Maintenance, 06/12/21 17:09:00 EST, Tablet, [facility], Dosing Subject To Change per INR Result per MD,165, cm, 05/21/21 10:54:00 EDT, Height, 127, kg, 07... Start Date: 06/12/21 Status: Ordered warfarin 5 mg oral tablet See Instructions, Dosing Subject To Change Per INR Result per MD, # 30 each, 6 Refills, Maintenance, 06/12/21 17:05:00 EST, Tablet, [facility], PLEASE GIVE BOTH 5MG TABLETS AND [...] Active Chronic pain syndrome(Confirmed) Active Cigarette smoker(Confirmed) 7/19/12 Active Straining with stools(Confirmed) Active DJD (degenerative joint dise ase), lumbar(Confirmed) 06/04/12 Active Essential tremor(Confirmed) Active Fibromyalgia(Confirmed) Active Anticoagulant long-term use(Confirmed) Active Gastric banding status(Confirmed) Active longterm current use of 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
--- OUTSIDE RECORDS SUMMARY | 2024-01-02 21:17 | XMS_ITS | Continuity of Care Document ---
Author Organization [facility] Robin Jane Nolberto Address [address] [place] [address]- Care Team Providers Care Woods Manager Name Role Phone Radha GRIDER, Fuentes Kenny Primary Care Physician [phone] Encounter [facility] Date(s): 06/07/21 - 07/07/21 [facility]ola[facility]ley Adult [address] [place] [address]- Allergies, Adverse Reactions, Alerts Substance Reaction Severity [...] 8 03/12/12 Giv en pneumococcal 23-valent vaccine 3/14/12 Given tetanus/diphtheria/pertussis, acel(Tdap) 09/08/11 Given tetanus/diphtheria/pertussis, acel(Tdap) 12/17/06 Recorded influ virus vac, H1N1, inactive(oldterm) 9 05/08/11 Given hepatitis B adult vaccine 06/14/02 Recorded 1Result Comment: [id number] 2Result Comment: [id number] 3Result Comment: [id number] 4Result Comment: [07/08/2017] [id number] 5Admin Note: [facility] 6Admin Note: [facility] 9- 7Admin Note: Given at [facility] 8Admin Note: [...] 8.5 Gm, 5 Refills, 05/29/21 17:13:00 EDT, [facility] #[id number], 17, INHALE 2 PUFFS BY MOUTH EVERY [...] 11 Refills, Maintenance, 10/31/20 14:14:00 EDT, Cream, [id number], Partial fill upon patient request if the [...] PMR, history of smoking fax to : [phone], 04... Start Date: 10/26/20 Status: Ordered Disposable [...] 11 Refills, Maintenance, 06/25/21 12:00:00 EST, Capsule, [facility], Partial fill upon patient request if [...] Gm, 3 Refills, Maintenance, 06/22/20 14:58:00 EST, [facility] #[id number], 165, cm, 06/07/20 13:52:00 EST, Height, 127, [...] Refills, Maintenance, 05/24/21 16:13:00 EDT, REC Powder, [facility] #51811, Partial fill upon patient request if the [...] mL, 5 Refills, Maintenance, 10/01/18 10:08:42 EST, [place], 2 sprays Nares, Both 2 times a [...] 08/02/20 16:13:00 EST, Route to Pharmacy Electronically, [facility] #[id number], D/C RX ON FILE FOR ABRAM, 165, [...] tablet, 6Refills, Maintenance, 05/21/21 11:19:00 EDT, Tablet, [facility], Partial fill upon patient request if the prescription is for a schedule II... Start Date: 05/21/21 Status: Ordered methenamine hippurate 1 gm oral tablet 1 tablet = 1 Gm, By Mouth, 2 times a day, # 60 tablet, 11 Refills, Maintenance, 07/05/21 14:00:00 EST, [facility], Partial fill upon patient request if the prescription is for a schedule II opioid drug., 165, cm, 02/28/21 14:22:00 EDT, Height,... Start Date: 07/05/21 Status: Ordered Mitigare 0.6 mg oral capsule 1 capsule, By Mouth, Daily, # 30 capsule, 11 Refills, Maintenance, 12/31/20 16:51:00 EDT, [facility] #[id number], 165, cm, 11/19/20 11:32:00 EDT, Height, 127, [...] 0 Refills, Maintenance, 04/11/21 9:00:00 EDT, Patch, [facility], Partial fill upon patient request, 165, cm, 02/28/21 14:22:00 EDT, Height, 127, kg, 02/03/20 14:39:00 EDT, Dry Weight Start Date: 04/11/21 Stop Date: 05/23/21 Status: Ordered NuLYTELY with Flavor Packs oral powder for reconstitution See Instructions, Drink 240mL every 15-20 minutes until first half is gone. Repeat 6 hours prior toprocedure., # 4,000 mL, 0 Refills, Maintenance, 06/28/20 17:09:00 EST, [facility] #[id number],Partial fill upon patient request if the prescript... Start Date: 06/28/20 Status: Ordered oxyCODONE 10 mg oral tablet 1 tablet = 10 mg, By Mouth, Every 8 hours, DX Z79.891 G89.29 M47.816 OK TO FILL LESS THAN PRESCRIBED AMOUNT, # 84 tablet, 0 Refills, Maintenance, 06/13/21 17:00:00 EST, Tablet, [facility] #[id number], 06/18/21, 165, cm, 05/21/21 10:54:00 EDT, He... Start Date: 06/13/21 Stop Date: 07/11/21 Status: Ordered oxyCODONE 5 mg oral tablet 10 mg, 2, tablet, By Mouth, Every 8 hours, DX Z79.891 G89.29 M47.816 OK TO FILL LESS THAN PRESCRIBED AMOUNT, # 168 tablet, Refills 0, Tot. Refills 0, Maintenance, 03/25/21 16:45:00 EDT, Route to Pharmacy Electronically, [facility] #[id number], D... Start Date: 03/25/21 Stop Date: 04/22/21 Status: Ordered penicillin V potassium 250 mg oral tablet 1 tablet = 250 mg, By Mouth, 2 times a day, Cellulitis prophylaxis, # 60 tablet, 11 Refills, Maintenance, 10/30/20 12:09:00 EDT, [facility] #[id number], 165, cm, 10/19/20 8:59:00 EDT, Height, 127, kg, 02/03/20 14:39:00 EDT, Dry Weight Start Date: 10/30/20 Status: Ordered predniSONE 5 mg oral tablet 1 tablet = 5 mg, By Mouth, Daily, # 30 tablet, 0 Refills, Maintenance, 01/11/21 14:20:00 EDT, Tablet, [facility] #[id number], Partial fill upon patient request if the prescription is for a schedule II opioid drug., 165, cm, 01/11/21 14:05:00 EDT,... Start Date: 01/11/21 Status: Ordered propranolol 20 mg oral tablet 20 mg, 1, tablet, By Mouth, 2 times a day, # 60 tablet, Refills 5, Tot. Refills 5, Maintenance, 06/25/21 11:57:00 EST, Route to Pharmacy Electronically, [facility], Partial fill upon patient [...] a day, # 90 tablet, 0 Refills, [facility], 165, cm, 05/21/21 10:54:00 EDT, Height, 127, kg, 02/03/20 14:39:00 EDT, Dry Weight Start Date: 06/11/21 Status: Ordered rosuvastatin 10 mg oral tablet 1 tablet = 10 mg, By Mouth, Daily, # 90 tablet, 1 Refills, Maintenance, 05/20/21 15:53:00 EDT, Tablet, [facility], d/c rx for capsules, 165, cm, 02/28/21 14:22:00 EDT, Height, 127, kg, 02/03/20 14:39:00 EDT, Dry Weight Start Date: 05/20/21 Status: Ordered Trulicity Pen 0.75 mg/0.5 mL subcutaneous solution 0.5 mL = 0.75 mg, Subcutaneous Injection, Every week, take on same day every week, rotate injectionsites E11.9, # 2 mL, 1 Refills, Maintenance, 05/21/21 11:18:00 EDT, Solution, [facility] #[id number], Partial fill upon patient request if the... Start Date: 05/21/21 Status: Ordered warfarin 2.5 mg oral tablet See Instructions, Dosing Subject To Change per INR Result per MD, # 30 each, 6 Refills, Maintenance, 06/12/21 17:09:00 EST, Tablet, [facility], Dosing Subject To Change per INR Result per MD,165, cm, 05/21/21 10:54:00 EDT, Height, 127, kg, 07... Start Date: 06/12/21 Status: Ordered warfarin 5 mg oral tablet See Instructions, Dosing Subject To Change Per INR Result per MD, # 30 each, 6 Refills, Maintenance, 06/12/21 17:05:00 EST, Tablet, [facility], PLEASE GIVE BOTH 5MG TABLETS AND [...]
--- OUTSIDE RECORDS SUMMARY | 2024-01-02 21:17 | XMS_ITS | Continuity of Care Document ---
Author Organization [facility] Robin Jane Nolberto Address [address] [place] [address]- Care Team Providers Care Ski Guide Name Role Phone Kyle Ahumada DO Primary Care Physician [facility] Date[facility]): 08/17/23 - 09/16/23 [facility] Robin Bolañosley Adult [address] [place] [address]- Allergies, Adverse Reactions, Alerts Substance Reaction Severity [...] vaccine, inactivated 05/10/07 Jarrett rded SARS-CoV-2 mRNA ([id number]) vax 08/30/21 Recorded SARS-CoV-2 (COVID-19) mRNA BNT-162b2 [...] Comment: PCV 20 [facility]#[id number] 2Result Comment: Flu [facility]#74132-658-85 3Result Comment: [id number] 4Result Comment: [id number] 5Result Comment: [id number] 6Result Comment: [id number] 7Result Comment: [07/08/2017] [id number] 8Admin Note: [facility] 9Admin Note: [facility] 9-13 10Admin Note: Given at [facility] 11Admin Note: 03-11-12 GIVEN AT [facility] 12Admin Note: rcvd elsewhere Medications acetaminophen 325 mg oral tablet 2, tablet, By Mouth, Every 6 hours, PRN, # 100 tablet, Refills 5, Maintenance, NEEDED FOR MODERATE PAIN (VIAL), 09/14/23 15:41:00 EST, Route to Pharmacy Electronically, [facility], 160, cm, 07/07/23 15:02:00 EST, Height, 112.4, kg, 06/24/23... Start Date: 09/14/23 Status: Ordered Albuterol (Eqv-ProAir HFA) 90 mcg/inh inhalation aerosol 2 puffs, Inhalation, Every 4 hours, PRN NEEDED FOR WHEEZING OR FOR SHORTNESS OF BREATH (BULK), #8.5 Gm, 5 Refills, Maintenance, 07/25/23 11:45:00 EST, [facility], 17, INHALE 2 PUFFS BY MOUTH EVERY 4 HOURS NEEDED FOR WHEEZING OR FOR SHOR... Start Date: 07/25/23 Status: Ordered cloNIDine 0.1 mg oral tablet 1, tablet, By Mouth, 2 times a day, PRN, ANXIETY (VIAL., # 56 tablet, Refills 2, Maintenance, NEEDED, 07/25/23 11:44:00 EST, Route to Pharmacy Electronically, [facility], 160, cm, 07/07/2315:02:00 EST, Height, 112.4, kg, 06/24/23 17:38:00... Start Date: 07/25/23 Status: Ordered cyclobenzaprine 5 mg oral tablet 1 tablet, By Mouth, 3 times a day, PRN NEEDED, SPASM (VIAL., # 90 tablet, 3 Refills, Maintenance, 08/19/23 10:07:00 EST, [facility], 160, cm, 07/07/23 15:02:00 EST, Height, 112.4, kg, 06/24/23 17:38:00 EST, Dry Weight Start Date: 08/19/23 Status: Ordered docusate sodium 100 mg oral capsule 100 mg, 1, capsule, By Mouth, 2 times a day, hold for loose stool, # 180 capsule, Refills 3, Tot. Refills 3, Maintenance, 03/13/23 16:56:00 EDT, Route to Pharmacy Electronically, [facility], Partial fill upon patient request if the prescriptio... Start Date: 03/13/23 Stop Date: 04/12/23 Status: Ordered duloxetine 20 mg oral enteric coated capsule 2 capsule = 40 mg, By Mouth, Daily at bedtime, # 60 capsule, 11 Refills, Maintenance, 06/25/21 12:00:00 EST, Capsule, [facility], Partial fill upon patient request [...] Required Details, [facility], [facility], cm, 07/07/23 15:02:00 EST, Height,... Start Date: 07/28/23 Status: Ordered furosemide 40 mg oral tablet 40 mg, 1, tablet, By Mouth, Daily, # 90 tablet, Refills 1, Tot. Refills 1, Maintenance, 03/02/23 18:12:00 EDT, Route to Pharmacy Electronically, [facility], Partial fill upon patient request if the prescription is for a schedule II opioid drug... Start Date: 03/02/23 Status: Ordered gabapentin 300 mg oral capsule 300 mg, 1, capsule, By Mouth, 3 times a day, # 90 capsule, Refills 2, Tot. Refills 2, Maintenance, 09/09/23 17:17:00 EST, Route to Pharmacy Electronically, [facility], Partial fill upon patient request if [...] mL, 11 Refills, Maintenance, 08/11/23 7:46:00 EST, [facility], 30, INSTILL 2 SPRAYS IN [...] 07/01/23 14:32:00 EST, Route to Pharmacy Electronically, [facility], 160, cm, 06/26/23 11:21:00 EST, Height, 112.4, kg, 06/24/23 17:38:00 EST, Dry Weight Start Date: 07/01/23 Status: Ordered metFORMIN 500 mg oral tablet 1 tablet = 500 mg, By Mouth, 2 times a day, # 60 tablet, 5 Refills, Maintenance, 07/07/23 15:26:00 EST, Tablet, [facility], Partial fill upon patient request if the prescription is for a schedule II opioid drug., 160, cm, 07/07/23 15:02:00 EST... Start Date: 07/07/23 Stop Date: 01/03/24 Status: Ordered nicotine 21 mg/24 hr transdermal film, extended release 1 patch, Topically, Daily, # 28 patch, 3 Refills, Maintenance, 09/14/23 15:41:00 EST, [facility], 28, APPLY 1 PATCH TOPICALLY DAILY, [...] tablet, 5 Refills, Maintenance, 08/19/23 10:06:00 EST, [email or web address], 160, cm, 07/07/23 15:02:00 EST, Height, 112.4, kg, 06/24/23 17:38:00 EST,Dry Weight Start Date: 08/19/23 Status: Ordered rOPINIRole 0.5 mg oral tablet 1 tablet, By Mouth, 3 times a day, ^1R1,1R3,1R4., # 90 tablet, 5 Refills, Maintenance, 05/09/23 20:56:00 EDT, [facility], 160, cm, 04/02/23 12:45:00 EDT, Height, 98.8, kg, 07/17/22 8:58:00 EST, Dry Weight Start Date: 05/09/23 Status: Ordered rosuvastatin 10 mg oral tablet 1 tablet, By Mouth, Daily, ^1R1., # 30 tablet, 5 Refills, Maintenance, 07/01/23 14:33:00 EST, [facility], 160, cm, 06/26/23 11:21:00 EST, Height, 112.4, kg, 06/24/23 17:38:00 EST, Dry Weight Start Date: 07/01/23 Status: Ordered Symbicort 160mcg/4.5mcg Inhaler 2, puffs, Inhalation, 2 times a day, # 10.2 Gm, Refills 11, Tot. Refills 11, Maintenance, 06/03/23 11:47:00 EST, Aerosol, Route to Pharmacy Electronically, NCPDP_[id number], [facility], 160, cm, 06/03/23 11:30:00 EST, Height, 98.8, kg, ... 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 Active [...] Type Response Smoking Status Current every day ayesha; Type: Cigarettes; Other: 1 pack daily; entered on: 04/19/18 Sex Female Patient Care team information Care Team Personnel Name: Sandra Wills NP Position: [facility] PCO Associate Professional Member Role: Primary Care Nurse Address: Address: [address] [place] [address] [place] [address]- [place] Name: Marley Alejo RN Position: S RN Member Role: Primary Care Nurse Name: Rashi Dewitt RN Position: [facility] RN Member Role: Primary Care Nurse Name: Alma Delia Fonseca PharmD Position: [facility] Associate Professional Member Role: Lifetime Consulting Provider Address: Address: [address] [place] [address] [place] [address]- [place] Name: Yolis Mattson RN Position: S RN Member Role: Primary Care Nurse Name: Priscila Garzon RN Position: S RN Member Role: Primary Care Nurse Name: Kyle Ahumada DO Position: [facility] Physician - Primary Care Member Role: PCP Address: Address: [address] [place] [id number]- [place] Name: Renea Mart RN Position: S RN Member Role: Primary Care Nurse Care Team Related Persons Name: FAUZIA JANSEN Address: home [address] [place] [address] Name: AURELIA SHETH Address: [address] [place] [address] Name: BRE OSORIO Address: [address] [place] [address]
--- OUTSIDE RECORDS SUMMARY | 2024-01-02 21:17 | XMS_ITS | Continuity of Care Document ---
Author Organization [facility] Robin Jane Nolberto Address [address] [place] [address]- Care Team Providers Care Pharmacy Order Entry Technician Name Role Phone Kyle Ahumada DO Primary Care Physician [facility] Date[facility]s): 03/18/23 - 04/17/23 [facility] Robin Jane Adult [address] [place] [address]- Allergies, Adverse Reactions, Alerts Substance Reaction Severity [...] vaccine, inactivated 05/10/07 Jarrett rded SARS-CoV-2 mRNA (frocxns-syci-efcbl) vax 08/30/21 Recorded SARS-CoV-2 (COVID-19) mRNA BNT-162b2 vac 01/02/21 Recorded SARS-CoV-2 (COVID-19) mRNA BNT-162b2 vac 12/02/20 Recorded Fluvirin (oldterm) 8 03/22/15 Given Fluzone Preservative-Free (oldterm) 9 03/12/12 Giv en pneumococcal 23-valent vaccine 10/08/11 Given tetanus/diphtheria/pertussis, acel(Tdap) 09/08/11 Given tetanus/diphtheria/pertussis, acel(Tdap) 12/17/06 Recorded influ virus vac, H1N1, inactive(oldterm) 10 05/08/11 Given hepatitis B adult vaccine 06/14/02 Recorded 1Result Comment: [id number] 2Result Comment: [id number] 3Result Comment: [id number] 4Result Comment: [id number] 5Result Comment: [07/08/2017] [id number] 6Admin Note: [facility] 7Admin Note: [facility] 04-08 8Admin Note: Given at [facility] 9Admin Note: 03-11-12 GIVEN AT [facility] 10Admin Note: rcvd elsewhere Medications acetaminophen 325 mg oral tablet 650 mg, 2, tablet, By Mouth, Every 6 hours, PRN, # 100 tablet, Refills 1, Tot. Refills 1, Maintenance, Pain , Moderate, 03/13/23 16:59:00 EDT, Route to Pharmacy Electronically, [facility], Partial fill upon patient request if the prescription... Start Date: 03/13/23 Status: Ordered Albuterol (Eqv-ProAir HFA) 90 mcg/inh inhalation aerosol See Instructions, INHALE 2 PUFFS BY MOUTH EVERY FOUR HOURS NEEDED FOR WHEEZING OR SHORTNESS OF BREATH, # 8.5 Gm, 5 Refills, Maintenance, 03/13/23 9:55:00 EDT[facility], 30, INHALE 2 PUFFS BY MOUTH [...] 03/12/23 15:30:00 EDT, [facility], [facility], 160, cm, 03/02/23 9:56:00 EDT, Height, 98.8, k... Start Date: 03/12/23 Status: Ordered cloNIDine 0.1 mg oral tablet 0.1 mg, 1, tablet, By Mouth, 2 times a day, PRN, # 60 tablet, Refills 2, Tot. Refills 2, Maintenance, Anxiety, 03/12/23 16:38:00 EDT, Route to Pharmacy Electronically, [facility], Partial fill upon patient request if the prescription is for a... Start Date: 03/12/23 Status: Ordered cyclobenzaprine 5 mg oral tablet 1 tablet = 5 mg, By Mouth, 3 times a day, PRN Spasm, can increase to 2 three time a day if needed, # 90 tablet, 2 Refills, Maintenance, 04/02/23 12:59:00 EDT, Tablet, [facility], Partial fillupon patient request if the prescription is for a s... Start Date: 04/02/23 Status: Ordered DilTIAZem (Eqv-Dilacor XR) 240 mg/24 hours oral capsule, extended release 1 capsule = 240 mg, By Mouth, Daily, # 90 capsule, 3 Refills, Maintenance, 03/13/23 17:04:00 EDT, CD Capsule, [facility], Partial fill upon patient request if the prescription is for a schedule II opioid drug., 160, cm, 03/02/23 9:56:00 EDT, H... Start Date: 03/13/23 Status: Ordered docusate sodium 100 mg oral capsule 100 mg, 1, capsule, By Mouth, 2 times a day, hold for loose stool, # 180 capsule, Refills 3, Tot. Refills 3, Maintenance, 03/13/23 16:56:00 EDT, Route to Pharmacy Electronically, [facility], Partial fill upon patient request if the prescriptio... Start Date: 03/13/23 Stop Date: 04/12/23 Status: Ordered duloxetine 20 mg oral enteric coated capsule 2 capsule = 40 mg, By Mouth, Daily at bedtime, # 60 capsule, 11 Refills, Maintenance, 06/25/21 12:00:00 EST, Capsule, [facility], Partial fill upon patient request if [...] 03/02/23 18:12:00 EDT, Route to Pharmacy Electronically, [facility], Partial fill upon patient request if the prescription is for a schedule II opioid drug... Start Date: 03/02/23 Status: Ordered ipratropium nasal 21 mcg/inh spray 2 sprays = 42 mcg, Nares, Both, 2 times a day, # 30 mL, 5 Refills, Maintenance, 03/13/23 16:58:00 EDT, [place], [facility], Partial fill upon patient request if [...] 02/07/23 18:12:00 EDT, Route to Pharmacy Electronically, [facility], 160, cm, 12/16/22 10:46:00 EDT, Height, [...] 3 Refills, Maintenance, 03/13/23 17:03:00 EDT, Patch, [facility], Partial fill upon patient request if the prescription is for a schedule II opioid drug., 1 patch Topically Daily, 160, cm, 03/02/23 9:56:0... Start Date: 03/13/23 Status: Ordered penicillin V potassium 250 mg oral tablet 1 tablet, By Mouth, 2 times a day, ^1R1,1R4., # 60 tablet, 5 Refills, Maintenance, 04/10/23 16:03:00 EDT, [facility], 160, cm, 04/02/23 12:45:00 EDT, Height, 98.8, kg, 07/17/22 8:58:00 EST, Dry Weight Start Date: 04/10/23 Status: Ordered rOPINIRole 0.5 mg oral tablet 1 tablet, By Mouth, 3 times a day, ^1R1,1R3,1R4., # 90 tablet, 5 Refills, Maintenance, 12/24/22 14:21:00 EDT, [facility], 160, cm, 12/16/22 10:46:00 EDT, Height, 98.8, kg, 07/17/22 8:58:00 EST, Dry Weight Start Date: 12/24/22 Status: Ordered rosuvastatin 10 mg oral tablet 1 tablet, By Mouth, Daily, ^1R1., # 30 tablet, 5 Refills, Maintenance, 02/07/23 18:12:00 EDT, [facility], 160, cm, 12/16/22 10:46:00 EDT, Height, 98.8, kg, 07/17/22 8:58:00 EST, Dry Weight Start Date: 02/07/23 Status: Ordered Symbicort 80mcg/4.5mcg Inhaler See Instructions, INHALE 2 PUFFS BY MOUTH TWICE A DAY RINSE MOUTH AND THROAT AFTER USE, # 10.2 Gm, Refills 5, Tot. Refills 5, Maintenance, 03/13/23 10:13:00 EDT, Instructions Replace Required Details, Route to Pharmacy Electronically, [id number]... 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 [...] Team Personnel Name: Sandra Wills NP Position: [facility] PCO Associate Professional Member Role: Primary Care Nurse Address: Address: [address] [facility] [place] [address]- [place] Name: Marley Alejo RN Position: S RN Member Role: Primary Care Nurse Name: Alma Delia Fonseca PharmD Position: [facility] BH Associate Professional Member Role: Lifetime Consulting Provider Address: Address: [address] [facility] [place] [address]- [place] Name: Yolis Mattson RN Position: [facility] RN Member Role: Primary Care Nurse Name: Priscila Garzon RN Position: [facility] RN Member Role: Primary Care Nurse Name: Kyle Ahumada DO Position: [facility] Physician - Primary Care Member Role: PCP Address: Address: [address] [place] [address]- [place] Name: Renea Mart RN Position: [facility] RN Member Role: Primary Care Nurse Care Team Related Persons Name: FAUZIA JANSEN Address: [address] [place] [address] Name: AURELIA SHETH Address: [address] [place] [address] Name: BRE OSORIO Address: [address] [place] [address]
--- OUTSIDE RECORDS SUMMARY | 2024-01-02 21:17 | XMS_ITS | Continuity of Care Document ---
Author Organization [facility] ter Address [address] [place] [address]- Care Team Providers Care Ice Guard Tester Name Role Phone Eulogio Nickerson MD Primary Care Physician [phone] Encounter [facility] Date(s): 09/19/21 - 12/01/[address] [address] Attending Physician: Eulogio Nickerson MD Admitting Physician: Eulogio Nickerson MD Referring Physician: Eulogio Nickerson MD Allergies, Adverse Reactions, Alerts Substance Reaction Severity Status Adhesive Bandage Active Dust copd exac/sinus congestion A ctive Immunizations Given and Recorded Vaccine Date Status Refusal Reason SARS-CoV-2 mRNA (pmsgbgy-bptx-boeus) vax 08/30/21 Recorded influenza virus vaccine, inactivated [...] B adult vaccine 06/14/02 Recorded 1Result Comment: [id number] 2Result Comment: [id number] 3Result Comment: [id number] 4Result Comment: [07/08/2017] 84002-880-14 5Admin Note: [facility] 6Admin Note: [facility] [...] Gm, 5 Refills, 05/29/21 17:13:00 EDT, [id number], 17, INHALE 2 PUFFS BY MOUTH EVERY [...] By Mouth, Daily, # 30 tablet, Refills , Tot. Refills 11, Maintenance, :00:00 EDT, [facility] Partial fill upon patient request if the prescription is for a schedule II opioid drKatie. Start Date: 10/30/21 Status: Ordered cyclobenzaprine 10 mg oral tablet See Instructions, PRN, 1 tablet By Mouth 3 times a day as needed, # 20 tablet, Refills 0, Tot. Refills 0, Maintenance, for spasm, 11/08/21 10:23:00 EDT, Instructions Replace Required Details, Route to Pharmacy Electronically, [id number]... Start Date: 11/08/21 Status: Ordered duloxetine 20 mg oral enteric coated capsule 2 capsule = 40 mg, By Mouth, Daily at bedtime, # 60 capsule, 11 Refills, Maintenance, 06/25/21 12:00:00 EST, [facility]apsule[facility] fill upon patient [...] 5 Refills, Maintenance, 11/18/21 13:49:00 EDT, [facility] Partial fill upon patient [...] Replace Required Details, Route to Pharmacy Electronically, [facility], 165, cm, 06/25/21 11:35:00 EST, Height, 127, kg, 02/03/20 14:39:00 EDT, Dry Weight Start Date: 08/05/21 Status: Ordered metFORMIN 500 mg oral tablet See Instructions, TAKE 2 TABLET BY MOUTH TWICE A DAY, # 120 tablet, 0 Refills, [facility], 165, cm, 11/18/21 13:18:00 EDT, Height, 127, kg, 02/03/20 14:39:00 EDT, Dry Weight Start Date: 11/21/21 Status: Ordered methenamine hippurate 1 gm oral tablet 1 tablet = 1 Gm, By Mouth, 2 times a day, # 60 tablet, 11 Refills, Maintenance, 07/05/21 14:00:00 EST, [facility], Partial fill upon patient request if the prescription is for a schedule II opioid drug., 165, cm, 02/28/21 14:22:00 EDT, Height,... Start Date: 07/05/21 Status: Ordered Metoprolol Tartrate 25 mg oral tablet 1 tablet, By Mouth, 2 times a day, # 60 tablet, 2 Refills, Maintenance, 11/18/21 13:47:00 EDT, [facility], 165, cm, 11/18/21 13:18:00 EDT, Height, 127, kg, 02/03/20 14:39:00 EDT, Dry Weight Start Date: 11/18/21 Status: Ordered NuLYTELY with Flavor Packs oral powder for reconstitution 240 mL, By Mouth, Every 10 minutes, # 1 each, 0 Refills, Maintenance, 10/25/21 10:39:00 EDT, REC Powder, [facility], Partial fill upon patient request if the prescription is for a schedule IIopioid drug., 240 mL By Mouth Every 10 minutes, 165... Start Date: 10/25/21 Status: Ordered penicillin V potassium 250 mg oral tablet 1 tablet, By Mouth, 2 times a day, CELLULITIS PROPHYLAXIS., # 60 tablet, 6 Refills, [facility], 165, cm, 11/08/21 10:02:00 EDT, Height, 127, kg, 02/03/20 14:39:00 EDT, Dry Weight Start Date: 11/15/21 Status: Ordered rOPINIRole 0.5 mg oral tablet 1 tablet, By Mouth, 3 times a day, # 90 tablet, 5 Refills, 11/08/21 9:01:00 EDT, [facility], 165, cm, 11/04/21 8:42:00 EDT, Height, 127, kg, 02/03/20 14:39:00 EDT, Dry Weight Start Date: 11/08/21 Status: Ordered rosuvastatin 10 mg oral tablet See Instructions, TAKE 1 TABLET BY MOUTH DAILY, # 90 tablet, 1 Refills, Maintenance, 10/18/21 21:30:00 EDT, [facility], 165, cm, 09/04/21 14:01:00 EST, Height, 127, kg, 02/03/20 14:39:00 EDT,Dry Weight Start Date: 10/18/21 Status: Ordered warfarin 2.5 mg oral tablet See Instructions, Dosing Subject To Change per INR Result per MD, # 30 each, 6 Refills, Maintenance, 06/12/21 17:09:00 EST, Tablet, [facility], Dosing Subject To Change per INR Result per MD,165, cm, 05/21/21 10:54:00 EDT, Height, 127, kg, 07... Start Date: 06/12/21 Status: Ordered warfarin 5 mg oral tablet See Instructions, Dosing Subject To Change Per INR Result per MD, # 30 each, 6 Refills, Maintenance, 06/12/21 17:05:00 EST, Tablet, [facility], PLEASE GIVE BOTH 5MG TABLETS AND [...]
--- OUTSIDE RECORDS SUMMARY | 2024-01-02 21:17 | XMS_ITS | Continuity of Care Document ---
Author Organization [facility] Nolberto lt Address [address] [place] [address]- Care Team Providers Care Chief Cruiser Name Role Phone Radha GRIDER, Fuentes Kenny Primary Care Physician [facility]counter [facility] Date(s): 07/18/20 - 08/17/20 [facility] Adult [address] [place] [address]- Allergies, Adverse Reactions, Alerts Substance Reaction Severity [...] H1N1, inactive(oldterm) 8 05/08/11 Given 1Result Comment: [id number] 2Result Comment: [id number] 3Result Comment: [07/08/2017] [id number] 4Admin Note: [facility] 5Admin Note: [facility] [...] 5 Refills, Maintenance, 07/03/20 9:16:00 EST, Cream, [facility] #[id number], Partial fill upon patient request if the [...] 06/04/20 12:56:00 EST, Route to Pharmacy Electronically, [facility] #[id number], please schedule appt for further refills, 165, cm, 05/16/20 14:15:00 EDT, Hei... Start Date: 06/04/20 Status: Ordered Claritin 10 mg oral tablet 10 mg, 1, tablet, By Mouth, Daily, for 90 days, # 90 tablet, Refills 3, Tot. Refills 3, Acute 07/28/21 15:22:00 EST, 08/02/20 15:22:00 EST, Route to Pharmacy Electronically, [facility] #[id number], 165, cm, 07/31/20 14:32:00 EST, Height, 127, kg,... Start Date: 08/02/20 Stop Date: 07/28/21 Status: Ordered colchicine 0.6 mg oral tablet See Instructions, take 1 tablet by mouth once daily if needed for PSEUDOGOUT pain, # 30 tablet, Refills 5, Tot. Refills 5, Soft Stop, 01/05/20 8:41:00 EDT, Instructions Replace Required Details, Route to Pharmacy Electronically, [facility] #... Start Date: 01/05/20 Status: Ordered Disposable [...] Gm, 3 Refills, Maintenance, 06/22/20 14:58:00 EST, [facility] #[id number], 165, cm, 06/07/20 13:52:00 EST, Height, 127, [...] mL, 5 Refills, Maintenance, 10/01/18 10:08:42 EST, [place], 2 sprays Nares, Both 2 times a [...] 08/02/20 16:13:00 EST, Route to Pharmacy Electronically, [facility] #[id number], D/C RX ON FILE FOR ABRAM, 165, [...] 09/29/20 14:57:00 EST, 07/31/20 14:57:00 EST, Capsule, [facility] ([facility] #[id number], Partial fill upon patient request if the prescription is for a schedule II opi... Start Date: 07/31/20 Stop Date: 09/29/20 Status: Ordered methenamine hippurate 1 gm oral tablet 1 tablet = 1 Gm, By Mouth, 2 times a day, # 60 tablet, 1 Refills, Maintenance, 07/12/20 13:56:00 EST, [facility] #[id number], Partial fill upon patient request if the prescription is for a schedule II opioid drug., 165, cm, 07/11/20 15:24:00 EST,... Start Date: 07/12/20 Stop Date: 07/05/21 Status: Ordered metoprolol 25 mg oral tablet 25 mg, 1, tablet, By Mouth, 2 times a day, # 60 tablet, Refills 5, Tot. Refills 5, Maintenance, 03/22/20 16:34:00 EDT, Route to Pharmacy Electronically, [facility] ([facility] #[id number], 165, cm, 02/02/2014:39:00 EDT, Height, 127, kg, [...] 0 Refills, Maintenance, 06/18/20 16:57:00 EST, Patch, [facility] #[id number], Partial fill upon patient request, 165, cm, 06/07/20 13:52:00 EST, Height, 127, kg, 02/03/20 14:39:00 EDT, Dry Weight Start Date: 06/18/20 Stop Date: 07/30/20 Status: Ordered NuLYTELY with Flavor Packs oral powder for reconstitution See Instructions, Drink 240mL every 15-20 minutes until first half is gone. Repeat 6 hours prior toprocedure., # 4,000 mL, 0 Refills, Maintenance, 06/28/20 17:09:00 EST, [facility] #[id number],Partial fill upon patient request if the prescript... Start Date: 06/28/20 Status: Ordered oxyCODONE 10 mg oral tablet 1 tablet = 10 mg, By Mouth, Every 8 hours, DX Z79.891 G89.29 M47.816 OK TO FILL LESS THAN PRESCRIBED AMOUNT, # 84 tablet, 0 Refills, Maintenance, 08/14/20 14:32:00 EST, Tablet, [facility] #[id number], 08/14/20, 165, cm, 07/31/20 14:32:00 EST, He... [...] 5 Refills, Maintenance, 04/30/20 15:13:00 EDT, Tablet, [facility] #[id number], 165, cm, 04/30/20 14:30:00 EDT, Height, 127, kg, 02/03/20 14:39:00 EDT, Dry Weight Start Date: 04/30/20 Status: Ordered rosuvastatin 10 mg oral tablet 1 tablet = 10 mg, By Mouth, Daily, # 90 tablet, 3 Refills, Maintenance, 05/03/20 16:35:00 EDT, Tablet, [facility] #[id number], d/c rx for capsules, 165, cm, 04/30/20 14:30:00 EDT, Height, 127, kg, 02/03/20 14:39:00 EDT, Dry Weight Start Date: 05/03/20 Status: Ordered Ventolin HFA 108 mcg/inh inhalation aerosol with adapter 2 puffs, Inhalation, Every 4 hours, PRN Wheezing/Shortness of Breath, # 1 each, 11 Refills, Soft Stop, 01/19/20 11:46:00 EDT, [facility] #[id number], 165, cm, 01/16/20 6:17:00 EDT, Height, 128.1, kg, 01/16/20 6:17:00 EDT, Dry Weight Start Date: 01/19/20 Status: Ordered warfarin 5 mg oral tablet 1 tablet = 5 mg, By Mouth, Daily, dosing subject to change pending inr lab values, # 30 tablet, 5 Refills, Maintenance, 02/15/20 13:21:00 EDT, Tablet, [facility] #[id number], 165, cm, 02/03/20 14:39:00 EDT, Height, 127, [...] long-term use(Confirmed) Active 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
--- OUTSIDE RECORDS SUMMARY | 2024-01-02 21:17 | XMS_ITS | Continuity of Care Document ---
Author Organization [facility] [place] Nolberto Address [address] [place] [address]- Care Team Providers Care Paper Hanger Name Role Phone Eulogio Nickerson MD Primary Care Physician Encounter [facility] Date(s): 09/04/21 - 09/11/21 [facility] Adult [address] [place] [address]- Attending Physician: Eulogio Nickerson MD Allergies, Adverse Reactions, Alerts Substance Reaction Severity Status Adhesive Bandage Active Dust copd exac/sinus congestion A ctive Immunizations Given and Recorded Vaccine Date Status Refusal Reason SARS-CoV-2 mRNA ([id number]) vax 08/30/21 Recorded influenza virus vaccine, inactivated [...] Jarrett rded influenza virus vaccine, inactivated 05/10/07 Jarertt rded SARS-CoV-2 (COVID-19) mRNA BNT-162b2 vac 01/02/21 Recorded SARS-CoV-2 (COVID-19) mRNA BNT-162b2 vac 12/02/20 Recorded Fluvirin (oldterm) 7 03/22/15 Given Fluzone Preservative-Free (oldterm) 8 03/12/12 Giv en pneumococcal 23-valent vaccine 10/08/11 Given tetanus/diphtheria/pertussis, acel(Tdap) 09/08/11 Given tetanus/diphtheria/pertussis, acel(Tdap) 12/17/06 Recorded influ virus vac, H1N1, inactive(oldterm) 9 05/08/11 Given hepatitis B adult vaccine 06/14/02 Recorded 1Result Comment: [id number] 2Result Comment: [id number] 3Result Comment: [id number] 4Result Comment: [07/08/2017] [id number] 5Admin Note: [facility] 6Admin Note: [facility] [...] 8.5 Gm, 5 Refills, 05/29/21 17:13:00 EDT, [facility] #[id number], 17, INHALE 2 PUFFS BY MOUTH EVERY 4 HOURS NEEDED FOR WHEEZING OR SHORTNE... Start Date: 05/29/21 Status: Ordered calcipotriene 0.005% topical cream 1 application, Topically, 2 times a day, # 60 Gm, 11 Refills, Maintenance, 10/31/20 14:14:00 EDT, Cream, [facility] #[id number], Partial fill upon patient request if the prescription is for a schedule II opioid drug., 1 application Topically 2 ti... Start Date: 10/31/20 Status: Ordered chlorthalidone 25 mg oral tablet 1, tablet, By Mouth, Daily, # 90 tablet, Refills 3, Route to Pharmacy Electronically, [facility], 165, cm, 06/25/21 11:35:00 EST, [...] 11 Refills, Maintenance, 06/25/21 12:00:00 EST, Capsule, [facility], Partial fill upon patient request if [...] Gm, 3 Refills, Maintenance, 06/22/20 14:58:00 EST, [facility] #[id number], 165, cm, 06/07/20 13:52:00 EST, Height, 127, [...] Route to Pharmacy Electronically, [facility] [place] Start Date: 09/05/21 Status: Ordered HydrOXYzine PRn , rare use, 0 Refills, Maintenance, 04/30/20 15:04:00 EDT Start Date: 04/30/20 Status: Ordered ipratropium nasal 21 mcg/inh spray 2 sprays, Nares, Both, 2 times a day, # 30 mL, 5 Refills, Maintenance, 10/01/18 10:08:42 EST, [place], 2 sprays Nares, Both 2 times a [...] Route to Pharmacy Electronically, [facility], 165, cm, 06/25/21 11:35:00 EST, [...] tablet, 6Refills, Maintenance, 05/21/21 11:19:00 EDT, [facility], Partial fill upon patient request if the prescription is for a schedule II... Start Date: 05/21/21 Status: Ordered methenamine hippurate 1 gm oral tablet 1 tablet = 1 Gm, By Mouth, 2 times a day, # 60 tablet, 11 Refills, Maintenance, 07/05/21 14:00:00 EST, [facility], Partial fill upon patient request if the prescription is for a schedule II opioid drug., 165, cm, 02/28/21 14:22:00 EDT, Height,... Start Date: 07/05/21 Status: Ordered Mitigare 0.6 mg oral capsule 1 capsule, By Mouth, Daily, # 30 capsule, 11 Refills, Maintenance, 12/31/20 16:51:00 EDT, [facility] #[id number], 165, cm, 11/19/20 11:32:00 EDT, Height, 127, kg, 02/03/20 14:39:00 EDT, Dry Weight Start Date: 12/31/20 Status: Ordered penicillin V potassium 250 mg oral tablet 1 tablet = 250 mg, By Mouth, 2 times a day, Cellulitis prophylaxis, # 60 tablet, 11 Refills, Maintenance, 10/30/20 12:09:00 EDT, [facility] #[id number], 165, cm, 10/19/20 8:59:00 EDT, Height, 127, kg, 02/03/20 14:39:00 EDT, Dry Weight Start Date: 10/30/20 Status: Ordered propranolol 20 mg oral tablet 20 mg, 1, tablet, By Mouth, 2 times a day, Stop metoprolol, # 60 tablet, Refills 5, Tot. Refills 5,Maintenance, 09/05/21 6:13:00 EST, [facility], Partial fill upon patient request if the prescription is for a... Start Date: 09/05/21 Status: Ordered risperiDONE 1 mg oral tablet take 1 tablet by mouth twice a day Start Date: 05/23/19 Status: Ordered rOPINIRole 0.5 mg oral tablet 1 tablet, By Mouth, 3 times a day, # 90 tablet, 3 [facility], 165, cm, 06/25/21 11:35:00 EST, Height, 127, kg, 02/03/20 14:39:00 EDT, Dry Weight Start Date: 07/09/21 Status: Ordered rosuvastatin 10 mg oral tablet 1 tablet = 10 mg, By Mouth, Daily, # 90 tablet, 1 Refills, Maintenance, 05/20/21 15:53:00 EDT, Tablet, [facility], d/c rx for capsules, 165, cm, [...] 6 Refills, Maintenance, 06/12/21 17:09:00 EST, Tablet, [facility], Dosing Subject To Change per INR Result per MD,165, cm, 05/21/21 10:54:00 EDT, Height, 127, kg, 07... 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
--- OUTSIDE RECORDS SUMMARY | 2024-01-02 21:17 | XMS_ITS | Continuity of Care Document ---
Author Organization [facility] [place] Nolberto lt Address [address] [place] [address]- Care Team Providers Care Metal Bonding Helper Name Role Phone Krishan GRIDER, Eulogio Molina Primary Care Physician [facility] Date(s): 08/13/21 - 09/12/21 [facility] Adult [address] [place] [address]- Allergies, Adverse Reactions, Alerts Substance Reaction Severity Status Adhesive Bandage Active Dust copd exac/sinus congestion A ctive Immunizations Given and Recorded Vaccine Date Status Refusal Reason SARS-CoV-2 mRNA ([id number]-ubbd-[id number]) vax 08/30/21 Recorded influenza virus vaccine, inactivated [...] B adult vaccine 06/14/02 Recorded 1Result Comment: [id number] 2Result Comment: [id number] 3Result Comment: [id number] 4Result Comment: [07/08/2017] [id number] 5Admin Note: [facility] 6Admin Note: [facility] [...] 8.5 Gm, 5 Refills, 05/29/21 17:13:00 EDT, [facility] #[id number], 17, INHALE 2 PUFFS BY MOUTH EVERY 4 HOURS NEEDED FOR WHEEZING OR SHORTNE... Start Date: 05/29/21 Status: Ordered calcipotriene 0.005% topical cream 1 application, Topically, 2 times a day, # 60 Gm, 11 Refills, Maintenance, 10/31/20 14:14:00 EDT, Cream, [facility] #[id number], Partial fill upon patient request if the prescription is for a schedule II opioid drug., 1 application Topically 2 ti... Start Date: 10/31/20 Status: Ordered chlorthalidone 25 mg oral tablet 1, tablet, By Mouth, Daily, # 90 tablet, Refills 3, [facility] to Pharmacy Electronically, [facility], 165, cm, 06/25/21 11:35:00 EST, [...] 11 Refills, Maintenance, 06/25/21 12:00:00 EST, Capsule, [facility], Partial fill upon patient request [...] Gm, 3 Refills, Maintenance, 06/22/20 14:58:00 EST, [facility] #[id number], 165, cm, 06/07/20 13:52:00 EST, Height, 127, [...] Replace Required Details, Route to Pharmacy Electronically, [facility] [place] Start Date: 09/05/21 Status: Ordered HydrOXYzine PRn , rare use, 0 Refills, Maintenance, 04/30/20 15:04:00 EDT Start Date: 04/30/20 Status: Ordered ipratropium nasal 21 mcg/inh spray 2 sprays, Nares, Both, 2 times a day, # 30 mL, 5 Refills, Maintenance, 10/01/18 10:08:42 EST, [place], 2 sprays Nares, Both 2 times a [...] Replace Required Details, Route to Pharmacy Electronically, [facility], 165, cm, 06/25/21 11:35:00 EST, [...] tablet, 6Refills, Maintenance, 05/21/21 11:19:00 EDT, Tablet, [facility], Partial fill upon patient request if the prescription is for a schedule II... Start Date: 05/21/21 Status: Ordered methenamine hippurate 1 gm oral tablet 1 tablet = 1 Gm, By Mouth, 2 times a day, # 60 tablet, 11 Refills, Maintenance, 07/05/21 14:00:00 EST, [facility], Partial fill upon patient request if the prescription is for a schedule II opioid drug., 165, cm, 02/28/21 14:22:00 EDT, Height,... Start Date: 07/05/21 Status: Ordered Mitigare 0.6 mg oral capsule 1 capsule, By Mouth, Daily, # 30 capsule, 11 Refills, Maintenance, 12/31/20 16:51:00 EDT, [facility] #[id number], 165, cm, 11/19/20 11:32:00 EDT, Height, 127, kg, 02/03/20 14:39:00 EDT, Dry Weight Start Date: 12/31/20 Status: Ordered penicillin V potassium 250 mg oral tablet 1 tablet = 250 mg, By Mouth, 2 times a day, Cellulitis prophylaxis, # 60 tablet, 11 Refills, Maintenance, 10/30/20 12:09:00 EDT, [facility] #[id number], 165, cm, 10/19/20 8:59:00 EDT, Height, 127, kg, 02/03/20 14:39:00 EDT, Dry Weight Start Date: 10/30/20 Status: Ordered propranolol 20 mg oral tablet 20 mg, 1, tablet, By Mouth, 2 times a day, Stop metoprolol, # 60 tablet, Refills 5, Tot. Refills 5,Maintenance, 09/05/21 6:13:00 EST, Route to Pharmacy Electronically, [facility], Partial fill upon patient request if the prescription is for a... Start Date: 09/05/21 Status: Ordered risperiDONE 1 mg oral tablet take 1 tablet by mouth twice a day Start Date: 05/23/19 Status: Ordered rOPINIRole 0.5 mg oral tablet 1 tablet, By Mouth, 3 times a day, # 90 tablet, 3 Refills, [facility], 165, cm, 06/25/21 11:35:00 EST, Height, 127, kg, 02/03/20 14:39:00 EDT, Dry Weight Start Date: 07/09/21 Status: Ordered rosuvastatin 10 mg oral tablet 1 tablet = 10 mg, By Mouth, Daily, # 90 tablet, 1 Refills, Maintenance, 05/20/21 15:53:00 EDT, Tablet, [facility], d/c rx for capsules, 165, [...] 6 Refills, Maintenance, 06/12/21 17:09:00 EST, Tablet, [facility], Dosing Subject To Change per INR Result per MD,165, cm, 05/21/21 10:54:00 EDT, Height, 127, kg, 07... Start Date: 06/12/21 Status: Ordered warfarin 5 mg oral tablet See Instructions, Dosing Subject To Change Per INR Result per MD, # 30 each, 6 Refills, Maintenance, 06/12/21 17:05:00 EST, Tablet, [facility], PLEASE GIVE BOTH 5MG TABLETS AND [...]
--- OUTSIDE RECORDS SUMMARY | 2024-01-02 21:18 | XMS_ITS | Continuity of Care Document ---
Author Organization [facility] Nolberto Address [address] [place] [address]- Care Team Providers Care Demographic Analyst Name Role Phone Krishan GRIDER, Eulogio Molina Primary Care Physician [facility] Date(s): 02/07/22 - 03/09/22 [facility] Adult [address] [place] [address]- Allergies, Adverse Reactions, Alerts Substance Reaction Severity Status Adhesive Bandage Active Dust copd exac/sinus congestion A ctive Immunizations Given and Recorded Vaccine Date Status Refusal Reason SARS-CoV-2 mRNA ([id number]) vax 08/30/21 Recorded influenza virus vaccine, inactivated [...] B adult vaccine 06/14/02 Recorded 1Result Comment: [id number] 2Result Comment: [id number] 3Result Comment: [id number] 4Result Comment: [07/08/2017] [id number] 5Admin Note: [facility] 6Admin Note: [facility] [...] 8.5 Gm, 5 Refills, 05/29/21 17:13:00 EDT, [facility] #[id number], 17, INHALE 2 PUFFS BY MOUTH EVERY [...] 0 Refills, Maintenance, 01/11/22 7:25:00 EDT, Capsule, [facility], Partial fill upon patient [...] Route to Pharmacy Electronically, [facility], 159, cm, 01/11/22 15:15:00 EDT, Height, 98.8, k... Start Date: 02/07/22 Status: Ordered colchicine 0.6 mg oral tablet 0.6 mg, 1, tablet, By Mouth, Daily, # 30 tablet, Refills 11, Tot. Refills 11, Maintenance, 227:00:00 EDT, Route to Pharmacy Electronically, [facility], Partial fill upon patient [...] 01/11/22 7:25:00 EDT, Route to Pharmacy Electronically, [facility], Partial fill upon patient request if the [...] Details, [facility], 165, cm, 06/25/21 11:35:00 EST, [...] 12/11/21 13:41:00 EDT, Route to Pharmacy Electronically, [facility], Partial fill upon patient requestif the [...] # 60 tablet, 6 Refills, [facility], 165, cm, 11/08/21 10:02:00 EDT, Height, 127, kg, 02/03/20 14:39:00 EDT, Dry Weight Start Date: 11/15/21 Status: Ordered rOPINIRole 0.5 mg oral tablet 1 tablet, By Mouth, 3 times a day, # 90 tablet, 5 Refills, 03/07/22 6:14:00 EDT, [facility], 159, cm, 01/11/22 15:15:00 EDT, Height, 98.8, kg, 01/10/22 9:12:00 EDT, Dry Weight Start Date: 03/07/22 Status: Ordered rosuvastatin 10 mg oral tablet See Instructions, TAKE 1 TABLET BY MOUTH DAILY, # 90 tablet, 1 Refills, Maintenance, 10/18/21 21:30:00 EDT, [facility], 165, cm, 09/04/21 14:01:00 EST, Height, [...] Replace Required Details, Route to Pharmacy Electronically, [id number], [facility], 159, cm, 01/11/22 15:15:00 EDT... 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
--- OUTSIDE RECORDS SUMMARY | 2024-01-02 21:18 | XMS_ITS | Continuity of Care Document ---
Author Organization [facility] Robin Jane Nolberto Address [address] [place] [address]- Care Team Providers Care Heater Operator Helper Name Role Phone Kyle Ahumada DO Primary Care Physician [facility] Date[facility]s): 02/05/23 - 06/05/23 [facility] Robin Bolañosley Adult [address] [place] [address]- Attending Physician: Kyle Ahumada DO Allergies, Adverse [...] vaccine, inactivated 05/10/07 Jarrett rded SARS-CoV-2 mRNA ([id number]) vax 08/30/21 Recorded SARS-CoV-2 (COVID-19) mRNA BNT-162b2 [...] [facility]#[id number] 2Result Comment: Flu [facility]#[id number] 3Result Comment: [id number] 4Result Comment: [id number] 5Result Comment: [id number] 6Result Comment: [id number] 7Result Comment: [07/08/2017] [id number] 8Admin Note: [facility] 9Admin Note: [facility] 9-13 10Admin Note: Given at [facility] 11Admin Note: 03-11-12 GIVEN AT [facility] 12Admin Note: rcvd elsewhere Medications acetaminophen 325 mg oral tablet 2, tablet, By Mouth, Every 6 hours, PRN, # 100 tablet, Refills 5, Maintenance, NEEDED FOR MODERATE PAIN (VIAL), 04/23/23 12:55:00 EDT, Route to Pharmacy Electronically, [facility], 160, cm, 04/02/23 12:45:00 EDT, Height, 98.8, kg, 07/17/22... Start Date: 04/23/23 Status: Ordered Albuterol (Eqv-ProAir HFA) 90 mcg/inh inhalation aerosol See Instructions, INHALE 2 PUFFS BY MOUTH EVERY FOUR HOURS NEEDED FOR WHEEZING OR SHORTNESS OF BREATH, # 8.5 Gm, 5 Refills, Maintenance, 03/13/23 9:55:00 EDT, [facility], 30, INHALE 2 PUFFS BY MOUTH [...] 05/09/23 20:57:00 EDT, Route to Pharmacy Electronically, [facility], 160, cm, 04/02/2312:45:00 EDT, Height, 98.8, kg, 07/17/22 8:58:00 ES... Start Date: 05/09/23 Status: Ordered cyclobenzaprine 5 mg oral tablet 1 tablet = 5 mg, By Mouth, 3 times a day, PRN Spasm, can increase to 2 three time a day if needed, # 90 tablet, 2 Refills, Maintenance, 04/02/23 12:59:00 EDT, Tablet, [facility], Partial fillupon patient request if the prescription is for a s... Start Date: 04/02/23 Status: Ordered DilTIAZem (Eqv-Dilacor XR) 240 mg/24 hours oral capsule, extended release 1 capsule = 240 mg, By Mouth, Daily, # 90 capsule, 3 Refills, Maintenance, 03/13/23 17:04:00 EDT, [facility], Partial fill upon patient request if the prescription is for a schedule II opioid drug., 160, cm, 03/02/23 9:56:00 EDT, H... Start Date: 03/13/23 Status: Ordered docusate sodium 100 mg oral capsule 100 mg, 1, capsule, By Mouth, 2 times a day, hold for loose stool, # 180 capsule, Refills 3, Tot. Refills 3, Maintenance, 03/13/23 16:56:00 EDT, [facility], Partial fill upon patient request if the prescriptio... Start Date: 03/13/23 Stop Date: 04/12/23 Status: Ordered duloxetine 20 mg oral enteric coated capsule 2 capsule = 40 mg, By Mouth, Daily at bedtime, # 60 capsule, 11 Refills, Maintenance, 06/25/21 12:00:00 EST, Capsule, [facility], Partial fill upon patient request if [...] 03/02/23 18:12:00 EDT, Route to Pharmacy Electronically, [facility], Partial fill upon patient request if [...] mL, 5 Refills, Maintenance, 03/13/23 16:58:00 EDT, [place], [facility], Partial fill upon patient request if [...] 02/07/23 18:12:00 EDT, Route to Pharmacy Electronically, [facility], 160, cm, 12/16/22 10:46:00 EDT, [...] 3 Refills, Maintenance, 03/13/23 17:03:00 EDT, Patch, [facility], Partial fill upon patient request if the prescription is for a schedule II opioid drug., 1 patch Topically Daily, 160, cm, 03/02/23 9:56:0... Start Date: 03/13/23 Status: Ordered penicillin V potassium 250 mg oral tablet 1 tablet, By Mouth, 2 times a day, ^1R1,1R4., # 60 tablet, 5 Refills, Maintenance, 04/10/23 16:03:00 EDT, [facility], 160, cm, 04/02/23 12:45:00 EDT, Height, 98.8, kg, 07/17/22 8:58:00 EST, Dry Weight Start Date: 04/10/23 Status: Ordered predniSONE 20 mg oral tablet 2 tablet = 40 mg, By Mouth, Daily, for 5 days, # 10 tablet, 0 Refills, Acute 06/08/23 11:49:00 EST,06/03/23 11:49:00 EST, [facility], Partial fill upon patient request if the prescription isfor a schedule II opioid drug., 160, cm, 06/03/23 1... Start Date: 06/03/23 Stop Date: 06/08/23 Status: Ordered rOPINIRole 0.5 mg oral tablet 1 tablet, By Mouth, 3 times a day, ^1R1,1R3,1R4., # 90 tablet, 5 Refills, Maintenance, 05/09/23 20:56:00 EDT, [facility], 160, cm, 04/02/23 12:45:00 EDT, Height, 98.8, kg, 07/17/22 8:58:00 EST, Dry Weight Start Date: 05/09/23 Status: Ordered rosuvastatin 10 mg oral tablet 1 tablet, By Mouth, Daily, ^1R1., # 30 tablet, 5 Refills, Maintenance, 02/07/23 18:12:00 EDT, [facility], 160, cm, 12/16/22 10:46:00 EDT, Height, 98.8, kg, 07/17/22 8:58:00 EST, Dry Weight Start Date: 02/07/23 Status: Ordered Symbicort 160mcg/4.5mcg Inhaler 2, puffs, Inhalation, 2 times a day, # 10.2 Gm, Refills 11, Tot. Refills 11, Maintenance, 06/03/23 11:47:00 EST, Aerosol, Route to Pharmacy Electronically, [id number], [facility], 160, cm, 06/03/23 11:30:00 EST, Height, 98.8, kg, ... 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 [...] Team Personnel Name: Sandra Wills NP Position: [facility] PCO Associate Professional Member Role: Primary Care Nurse Address: Address: [address] [place] [address] [place] [address]- [place] Name: Marley Alejo RN Position: [facility] RN Member Role: Primary Care Nurse Name: Alma Delia Fonseca PharmD Position: [facility] Associate Professional Member Role: Lifetime Consulting Provider Address: Address: [address] [place] [address] [place] [address]- [place] Name: Yolis Mattson RN Position: [facility] RN Member Role: Primary Care Nurse Name: Priscila Garzon RN Position: [facility] RN Member Role: Primary Care Nurse Name: Kyle Ahumada DO Position: [facility] Physician - Primary Care Member Role: PCP Address: Address: [address] [place] [address]- [place] Name: Reena Mart RN Position: [facility] RN Member Role: Primary Care Nurse Care Team Related Persons Name: FAUZIA JANSEN Address: home [address] [place] [address] Name: AURELIA SHETH Address: home [address] [place] [address] Name: BRE OSORIO Address: [address] [place] [address]
--- OUTSIDE RECORDS SUMMARY | 2024-01-02 21:18 | XMS_ITS | Continuity of Care Document ---
Author Organization [facility] Nolberto Address [address] [place] [address]- Care Team Providers Care Medical Assistant Ob Gyn Name Role Phone Krishan GRIDER, Eulogio Molina Primary Care Physician Encounter [facility] Date(s): 01/06/22 - 02/05/22 [facility] Adult [address] [place] [address]- Allergies, Adverse Reactions, Alerts Substance Reaction Severity Status Adhesive Bandage Active Dust copd exac/sinus congestion A ctive Immunizations Given and Recorded Vaccine Date Status Refusal Reason SARS-CoV-2 mRNA ([id number]) vax 08/30/21 Recorded influenza virus vaccine, inactivated [...] B adult vaccine 06/14/02 Recorded 1Result Comment: [id number] 2Result Comment: [id number] 3Result Comment: [id number] 4Result Comment: [07/08/2017] [id number] 5Admin Note: [facility] 6Admin Note: [facility] [...] 8.5 Gm, 5 Refills, 05/29/21 17:13:00 EDT, [facility] #[id number], 17, INHALE 2 PUFFS BY MOUTH EVERY [...] 0 Refills, Maintenance, 01/11/22 7:25:00 EDT, Capsule, [facility], Partial fill upon patient [...] Details, Route to Pharmacy Electronically, [facility], 165, cm, 01/06/22 14:35:00 EDT, Height, 102.1, kg, ... Start Date: 01/09/22 Status: Ordered colchicine 0.6 mg oral tablet 0.6 mg, 1, tablet, By Mouth, Daily, # 30 tablet, Refills 11, Tot. Refills 11, Maintenance, :00:00 EDT, Route to Pharmacy Electronically, [facility], Partial fill upon patient [...] 01/11/22 7:25:00 EDT, Route to Pharmacy Electronically, [facility], Partial fill upon patient request if the prescri... Start Date: 01/11/22 Stop Date: 02/10/22 Status: Ordered duloxetine 20 mg oral enteric coated capsule 2 capsule = 40 mg, By Mouth, Daily at bedtime, # 60 capsule, 11 Refills, Maintenance, 06/25/21 12:00:00 EST, Capsule, [facility], Partial fill upon [...] Details, Route to Pharmacy Electronically, [facility], 165, cm, 06/25/21 11:35:00 EST, [...] Route to Pharmacy Electronically, [facility], Partial fill upon patient requestif the [...] 03/05/22 16:36:00 EDT, 12/03/21 16:35:00 EDT, [place]um, [facility] #[id number], Partial fill uponpatient request if the prescription [...] CELLULITIS PROPHYLAXIS., # 60 tablet, 6 Refills, [facility], 165, cm, 11/08/21 10:02:00 EDT, Height, 127, kg, 02/03/20 14:39:00 EDT, Dry Weight Start Date: 11/15/21 Status: Ordered rOPINIRole 0.5 mg oral tablet 1 tablet, By Mouth, 3 times a day, # 90 tablet, 5 Refills, 11/08/21 9:01:00 EDT, [facility], [facility], cm, 11/04/21 8:42:00 EDT, Height, 127, kg, 02/03/20 14:39:00 EDT, Dry Weight Start Date: 11/08/21 Status: Ordered rosuvastatin 10 mg oral tablet See Instructions, TAKE 1 TABLET BY MOUTH DAILY, # 90 tablet, 1 Refills, Maintenance, 10/18/21 21:30:00 EDT, [facility], 165, cm, 09/04/21 14:01:00 EST, [...] 0 Refills, Maintenance, 01/11/22 7:24:00 EDT, Tablet, [facility], Partial fill upon [...] long-term use(Confirmed) Active 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
--- OUTSIDE RECORDS SUMMARY | 2024-01-02 21:18 | XMS_ITS | Continuity of Care Document ---
Author Organization [facility] Robin Jane Nolberto lt Address [address] [place] [address]- Care Team Providers Care Foundation Director Name Role Phone Fuentes Garcia MD Primary Care Physician [facility] Date[facility]s): 03/19/20 - 04/18/20 [facility] Adult [address] [place] [address]- [facility] Allergies, Adverse Reactions, Alerts Substance Reaction Severity [...] H1N1, inactive(oldterm) 7 05/08/11 Given 1Result Comment: [id number] 2Result Comment: [07/08/2017] [id number] 3Admin Note: [facility] 4Admin Note: [facility] [...] 12/06/19 9:16:00 EDT, Route to Pharmacy Electronically, [id number], please schedule appt for further refills, 162, cm, 09/21/19 12:01:00 [place] [facility]. Start Date: 12/06/19 Status: Ordered Claritin 10 mg oral tablet 10 mg, 1, tablet, By Mouth, Daily, for 30 days, # 30 tablet, Refills 11, Tot. Refills 11, Acute 05/11/20 17:36:41 EDT, 05/17/19 17:36:41 EDT, Route to Pharmacy Electronically, [id number], [facility] [address] [place] [id number] Start Date: 05/17/19 Stop Date: 05/11/20 Status: Ordered colchicine 0.6 mg oral tablet See Instructions, take 1 tablet by mouth once daily if needed for PSEUDOGOUT pain, # 30 tablet, Refills 5, Tot. Refills 5, Soft Stop, 01/05/20 8:41:00 EDT, Instructions Replace Required Details, Route to Pharmacy Electronically, [facility]... Start Date: 01/05/20 Status: Ordered [...] Gm, 1 Refills, Maintenance, 12/20/19 16:30:00 EDT, [facility] #[id number], 162, cm, 09/21/19 12:01:00 EST, Height, 116.4, [...] mL, 5 Refills, Maintenance, 10/01/18 10:08:42 EST, [place], 2 sprays Nares, Both 2 times a [...] 04/27/20 16:20:00 EDT, 04/17/20 16:20:00 EDT, Capsule, [facility] #[id number], 165, cm, 02/03/20 14:39:00EDT, Height, 127, kg, 02/03/20 14:39:00 EDT, Dry We... Start Date: 04/17/20 Stop Date: 04/27/20 Status: Ordered metoprolol 25 mg oral tablet 25 mg, 1, tablet, By Mouth, 2 times a day, # 60 tablet, Refills 5, Tot. Refills 5, Maintenance, 03/22/20 16:34:00 EDT, Route to Pharmacy Electronically, [facility] #[id number], 165, cm, 02/02/2014:39:00 EDT, Height, 127, kg, [...] 0 Refills, Maintenance, 03/26/20 17:11:00 EDT, Tablet, [facility] #[id number], 03/27/20, 165, cm, 02/03/20 14:39:00 EDT, He... [...] 11 Refills, Soft Stop, 01/19/20 11:46:00 EDT, [facility] #[id number], 165, cm, 01/16/20 6:17:00 EDT, Height, 128.1, kg, 01/16/20 6:17:00 EDT, Dry Weight Start Date: 01/19/20 Status: Ordered warfarin 5 mg oral tablet 1 tablet = 5 mg, By Mouth, Daily, dosing subject to change pending inr lab values, # 30 tablet, 5 Refills, Maintenance, 02/15/20 13:21:00 EDT, Tablet, [facility] #[id number], 165, cm, 02/03/20 14:39:00 EDT, Height, 127, [...]
--- OUTSIDE RECORDS SUMMARY | 2024-01-02 21:18 | XMS_ITS | Continuity of Care Document ---
Author Organization [facility] Buck Nolberto Address [address] [place] [address]- Care Team Providers Care Shoemaker Apprentice Name Role Phone Radha GRIDER, Fuentes Kenny Primary Care Physician [facility] Date[facility]s): 06[facility]21 - 07/12/21 [facility] Robin Bolañosley Adult [address] [place] [address]- Allergies, Adverse Reactions, Alerts Substance Reaction Severity [...] 7 03/22/15 Given Fluzone Preservative-Free (oldterm) 8 8/17/12 Giv en pneumococcal 23-valent vaccine 10/08/11 Given tetanus/diphtheria/pertussis, acel(Tdap) 09/08/11 Given tetanus/diphtheria/pertussis, acel(Tdap) 12/17/06 Recorded influ virus vac, H1N1, inactive(oldterm) 9 05/08/11 Given hepatitis B adult vaccine 06/14/02 Recorded 1Result Comment: [id number] 2Result Comment: [id number] 3Result Comment: [id number] 4Result Comment: [07/08/2017] [id number] 5Admin Note: [facility] 6Admin Note: [facility] [...] 8.5 Gm, 5 Refills, 05/29/21 17:13:00 EDT, [facility] #[id number], 17, INHALE 2 PUFFS BY MOUTH EVERY [...] 11 Refills, Maintenance, 10/31/20 14:14:00 EDT, Cream, [facility] #[id number], Partial fill upon patient request if the [...] tablet, Refills 3, Route to Pharmacy Electronically, [facility], 165, cm, 06/25/21 11:35:00 EST, Height, [...] PMR, history of smoking fax to : [phone], 04... Start Date: 10/26/20 Status: Ordered Disposable [...] 11 Refills, Maintenance, 06/25/21 12:00:00 EST, Capsule, [facility], Partial fill upon patient request if [...] Gm, 3 Refills, Maintenance, 06/22/20 14:58:00 EST, [facility] #[id number], 165, cm, 06/07/20 13:52:00 EST, Height, 127, [...] Refills, Maintenance, 05/24/21 16:13:00 EDT, REC Powder, [facility] #[id number], Partial fill upon patient request if the [...] mL, 5 Refills, Maintenance, 10/01/18 10:08:42 EST, [place], 2 sprays Nares, Both 2 times a [...] 08/02/20 16:13:00 EST, Route to Pharmacy Electronically, [facility] #[id number], D/C RX ON FILE FOR ABRAM, 165, [...] tablet, 6Refills, Maintenance, 05/21/21 11:19:00 EDT, Tablet, [facility], Partial fill upon patient request if the prescription is for a schedule II... Start Date: 05/21/21 Status: Ordered methenamine hippurate 1 gm oral tablet 1 tablet = 1 Gm, By Mouth, 2 times a day, # 60 tablet, 11 Refills, Maintenance, 07/05/21 14:00:00 EST, [facility], Partial fill upon patient request if the prescription is for a schedule II opioid drug., 165, cm, 02/28/21 14:22:00 EDT, Height,... Start Date: 07/05/21 Status: Ordered Metoprolol Tartrate 25 mg oral tablet 1 tablet, By Mouth, 2 times a day, # 60 tablet, 3 Refills, [facility], 165, cm, 06/25/21 11:35:00 EST, Height, 127, kg, 02/03/20 14:39:00 EDT, Dry Weight Start Date: 07/09/21 Status: Ordered Mitigare 0.6 mg oral capsule 1 capsule, By Mouth, Daily, # 30 capsule, 11 Refills, Maintenance, 12/31/20 16:51:00 EDT, [facility] #[id number], 165, cm, 11/19/20 11:32:00 EDT, Height, 127, [...] 0 Refills, Maintenance, 04/11/21 9:00:00 EDT, Patch, [facility], Partial fill upon patient request, 165, cm, 02/28/21 14:22:00 EDT, Height, 127, kg, 02/03/20 14:39:00 EDT, Dry Weight Start Date: 04/11/21 Stop Date: 05/23/21 Status: Ordered NuLYTELY with Flavor Packs oral powder for reconstitution See Instructions, Drink 240mL every 15-20 minutes until first half is gone. Repeat 6 hours prior toprocedure., # 4,000 mL, 0 Refills, Maintenance, 06/28/20 17:09:00 EST, [facility] #[id number],Partial fill upon patient request if the prescript... Start Date: 06/28/20 Status: Ordered oxyCODONE 10 mg oral tablet 1 tablet = 10 mg, By Mouth, Every 8 hours, DX Z79.891 G89.29 M47.816 OK TO FILL LESS THAN PRESCRIBED AMOUNT, # 84 tablet, 0 Refills, Maintenance, 06/13/21 17:00:00 EST, Tablet, [facility] #[id number], 06/18/21, 165, cm, 05/21/21 10:54:00 EDT, He... Start Date: 06/13/21 Stop Date: 07/11/21 Status: Ordered oxyCODONE 5 mg oral tablet 10 mg, 2, tablet, By Mouth, Every 8 hours, DX Z79.891 G89.29 M47.816 OK TO FILL LESS THAN PRESCRIBED AMOUNT, # 168 tablet, Refills 0, Tot. Refills 0, Maintenance, 03/25/21 16:45:00 EDT, Route to Pharmacy Electronically, [facility] #[id number], D... Start Date: 03/25/21 Stop Date: 04/22/21 Status: Ordered penicillin V potassium 250 mg oral tablet 1 tablet = 250 mg, By Mouth, 2 times a day, Cellulitis prophylaxis, # 60 tablet, 11 Refills, Maintenance, 10/30/20 12:09:00 EDT, [facility] #[id number], 165, cm, 10/19/20 8:59:00 EDT, Height, 127, kg, 02/03/20 14:39:00 EDT, Dry Weight Start Date: 10/30/20 Status: Ordered predniSONE 5 mg oral tablet 1 tablet = 5 mg, By Mouth, Daily, # 30 tablet, 0 Refills, Maintenance, 01/11/21 14:20:00 EDT, Tablet, [facility] #[id number], Partial fill upon patient request if the prescription is for a schedule II opioid drug., 165, cm, 01/11/21 14:05:00 EDT,... Start Date: 01/11/21 Status: Ordered propranolol 20 mg oral tablet 20 mg, 1, tablet, By Mouth, 2 times a day, # 60 tablet, Refills 5, Tot. Refills 5, Maintenance, 06/25/21 11:57:00 EST, Route to Pharmacy Electronically, [facility] [...] a day, # 90 tablet, 3 Refills, [facility], 165, cm, 06/25/21 11:35:00 EST, Height, 127, kg, 02/03/20 14:39:00 EDT, Dry Weight Start Date: 07/09/21 Status: Ordered rosuvastatin 10 mg oral tablet 1 tablet = 10 mg, By Mouth, Daily, # 90 tablet, 1 Refills, Maintenance, 05/20/21 15:53:00 EDT, Tablet, [facility], d/c rx for capsules, 165, cm, 02/28/21 14:22:00 EDT, Height, 127, kg, 02/03/20 14:39:00 EDT, Dry Weight Start Date: 05/20/21 Status: Ordered Trulicity Pen 0.75 mg/0.5 mL subcutaneous solution 0.5 mL = 0.75 mg, Subcutaneous Injection, Every week, take on same day every week, rotate injectionsites E11.9, # 2 mL, 1 Refills, Maintenance, 05/21/21 11:18:00 EDT, Solution, [facility] #[id number], Partial fill upon patient request if the... Start Date: 05/21/21 Status: Ordered warfarin 2.5 mg oral tablet See Instructions, Dosing Subject To Change per INR Result per MD, # 30 each, 6 Refills, Maintenance, 06/12/21 17:09:00 EST, Tablet, [facility], Dosing Subject To Change per INR Result per MD,165, cm, 05/21/21 10:54:00 EDT, Height, 127, kg, 07... Start Date: 06/12/21 Status: Ordered warfarin 5 mg oral tablet See Instructions, Dosing Subject To Change Per INR Result per MD, # 30 each, 6 Refills, Maintenance, 06/12/21 17:05:00 EST, Tablet, [facility], PLEASE GIVE BOTH 5MG TABLETS AND [...]
--- OUTSIDE RECORDS SUMMARY | 2024-01-02 21:18 | XMS_ITS | Continuity of Care Document ---
Author Organization [facility] Robin Jane Nolberto Address [address] [place] [address]- Care Team Providers Care Help Desk Technician Name Role Phone Kyle Ahumada DO Primary Care Physician [phone] Encounter [facility] Date(s): 02/19/23 - 03/21/23 [facility] Adult [address] [place] [address]- Allergies, Adverse Reactions, Alerts Substance Reaction Severity [...] vaccine, inactivated 05/10/07 Jarrett rded SARS-CoV-2 mRNA (pesxyyi-idbo-cldor) vax 08/30/21 Recorded SARS-CoV-2 (COVID-19) mRNA BNT-162b2 vac 01/02/21 Recorded SARS-CoV-2 (COVID-19) mRNA BNT-162b2 vac 5/9/21 Recorded Fluvirin (oldterm) 8 03/22/15 Given Fluzone Preservative-Free (oldterm) 9 03/12/12 Giv en pneumococcal 23-valent vaccine 10/08/11 Given tetanus/diphtheria/pertussis, acel(Tdap) 09/08/11 Given tetanus/diphtheria/pertussis, acel(Tdap) 12/17/06 Recorded influ virus vac, H1N1, inactive(oldterm) 10 05/08/11 Given hepatitis B adult vaccine 06/14/02 Recorded 1Result Comment: [id number] 2Result Comment: [id number] 3Result Comment: [id number] 4Result Comment: [id number] 5Result Comment: [07/08/2017] [id number] 6Admin Note: [facility] 7Admin Note: [facility] 04-08 8Admin Note: Given at [facility] 9Admin Note: 03-11-12 GIVEN AT [facility] 10Admin Note: rcvd elsewhere Medications acetaminophen 325 mg oral tablet 650 mg, 2, tablet, By Mouth, Every 6 hours, PRN, # 100 tablet, Refills 1, Tot. Refills 1, Maintenance, Pain , Moderate, 03/13/23 16:59:00 EDT, Route to Pharmacy Electronically, [facility], Partial fill upon patient request if the prescription... Start Date: 03/13/23 Status: Ordered Albuterol (Eqv-ProAir HFA) 90 mcg/inh inhalation aerosol See Instructions, INHALE 2 PUFFS BY MOUTH EVERY FOUR HOURS NEEDED FOR WHEEZING OR SHORTNESS OF BREATH, # 8.5 Gm, 5 Refills, Maintenance, 03/13/23 9:55:00 EDT, [facility], 30, INHALE 2 PUFFS BY [...] 03/12/23 15:30:00 EDT, Route to Pharmacy Electronically, [facility], 160, cm, 03/02/23 9:56:00 EDT, Height, 98.8, k... Start Date: 03/12/23 Status: Ordered cloNIDine 0.1 mg oral tablet 0.1 mg, 1, tablet, By Mouth, 2 times a day, PRN, # 60 tablet, Refills 2, Tot. Refills 2, Maintenance, Anxiety, 03/12/23 16:38:00 EDT, Route to Pharmacy Electronically, [facility], Partial fill upon patient request if the prescription is for a... Start Date: 03/12/23 Status: Ordered cyclobenzaprine 5 mg oral tablet 1 tablet = 5 mg, By Mouth, 3 times a day, # 45 tablet, 1 Refills, Maintenance, 03/03/23 9:27:00 EDT, Tablet, [facility], Partial fill upon patient request if the prescription is for a schedule II opioid drug., 160, cm, 03/02/23 9:56:00 EDT, He... Start Date: 03/03/23 Status: Ordered DilTIAZem (Eqv-Dilacor XR) 240 mg/24 hours oral capsule, extended release 1 capsule = 240 mg, By Mouth, Daily, # 90 capsule, 3 Refills, Maintenance, 03/13/23 17:04:00 EDT, CD Capsule, [facility], Partial fill upon patient request if the prescription is for a schedule II opioid drug., 160, cm, 03/02/23 9:56:00 EDT, H... Start Date: 03/13/23 Status: Ordered docusate sodium 100 mg oral capsule 100 mg, 1, capsule, By Mouth, 2 times a day, hold for loose stool, # 180 capsule, Refills 3, Tot. Refills 3, Maintenance, 03/13/23 16:56:00 EDT, Route to Pharmacy Electronically, [facility], Partial fill upon patient request if the prescriptio... Start Date: 03/13/23 Stop Date: 04/12/23 Status: Ordered duloxetine 20 mg oral enteric coated capsule 2 capsule = 40 mg, By Mouth, Daily at bedtime, # 60 capsule, 11 Refills, Maintenance, 06/25/21 12:00:00 EST, Capsule, [facility], Partial fill upon patient request if [...] 03/02/23 18:12:00 EDT, Route to Pharmacy Electronically, [facility], Partial fill upon patient request if the prescription is for a schedule II opioid drug... Start Date: 03/02/23 Status: Ordered ipratropium nasal 21 mcg/inh spray 2 sprays = 42 mcg, Nares, Both, 2 times a day, # 30 mL, 5 Refills, Maintenance, 03/13/23 16:58:00 EDT, White, [facility], Partial fill upon patient request if [...] 02/07/23 18:12:00 EDT, Route to Pharmacy Electronically, [facility], 160, cm, 12/16/22 10:46:00 EDT, Height, [...] 3 Refills, Maintenance, 03/13/23 17:03:00 EDT, Patch, [facility], Partial fill upon patient request if the prescription is for a schedule II opioid drug., 1 patch Topically Daily, 160, cm, 03/02/23 9:56:0... Start Date: 03/13/23 Status: Ordered penicillin V potassium 250 mg oral tablet 1 tablet = 250 mg, By Mouth, 2 times a day, CELLULITIS PROPHYLAXIS, # 60 tablet, 5 Refills, Maintenance, 11/06/22 17:25:00 EDT, Tablet, [facility], Partial fill upon patient request if the prescription is for a schedule II opioid drug., 160, c... Start Date: 11/06/22 Stop Date: 05/05/23 Status: Ordered rOPINIRole 0.5 mg oral tablet 1 tablet, By Mouth, 3 times a day, ^1R1,1R3,1R4., # 90 tablet, 5 Refills, Maintenance, 12/24/22 14:21:00 EDT, [facility], 160, cm, 12/16/22 10:46:00 EDT, Height, 98.8, kg, 07/17/22 8:58:00 EST, Dry Weight Start Date: 12/24/22 Status: Ordered rosuvastatin 10 mg oral tablet 1 tablet, By Mouth, Daily, ^1R1., # 30 tablet, 5 Refills, Maintenance, 02/07/23 18:12:00 EDT, [facility], 160, cm, 12/16/22 10:46:00 EDT, Height, 98.8, kg, 07/17/22 8:58:00 EST, Dry Weight Start Date: 02/07/23 Status: Ordered Symbicort 80mcg/4.5mcg Inhaler See Instructions, INHALE 2 PUFFS BY MOUTH TWICE A DAY RINSE MOUTH AND THROAT AFTER USE, # 10.2 Gm, Refills 5, Tot. Refills 5, Maintenance, 03/13/23 10:13:00 EDT, Instructions Replace Required Details, Route to Pharmacy Electronically, NCP_ID-[id number]... 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 Confirmed Active [...] Role: Primary Care Nurse Address: Address: [address] [facility] [place] [address]- [place] Name: Marley Alejo RN Position: [facility] RN Member Role: Primary Care Nurse Name: Alma Delia Fonseca PharmD Position: [facility] Associate Professional Member Role: Lifetime Consulting Provider Address: Address: [address] [facility] [place] [address]- [place] Name: Yolis Mattson RN Position: [facility] RN Member Role: Primary Care Nurse Name: Priscila Garzon RN Position: [facility] RN Member Role: Primary Care Nurse Name: Kyle Ahumada DO Position: [facility] Physician - Primary Care Member Role: PCP Address: Address: [address] [place] [address]- [place] Name: Renea Mart RN Position: [facility] RN Member Role: Primary Care Nurse Care Team Related Persons Name: FAUZIA JANSEN Address: home [address] [place] [address] Name: AURELIA SHETH Address: [address] [place] [address] Name: BRE OSORIO Address: home [address] [place] [address]
--- OUTSIDE RECORDS SUMMARY | 2024-01-02 21:18 | XMS_ITS | Continuity of Care Document ---
Author Organization [facility] Buck Nolberto Address [address] [place] [address]- Care Team Providers Care Wildlife Enforcement Major Name Role Phone Krishan GRIDER, Eulogio Molina Primary Care Physician Encounter [facility] Date(s): 09/02/22 - 10/02/22 [facility] Adult [address] [place] [address]- Allergies, Adverse Reactions, Alerts Substance Reaction Severity [...] vaccine, inactivated 05/10/07 Jarrett rded SARS-CoV-2 mRNA (ywsasmq-ztlm-ihjuk) vax 08/30/21 Recorded SARS-CoV-2 (COVID-19) mRNA BNT-162b2 vac 01/02/21 Recorded SARS-CoV-2 (COVID-19) mRNA BNT-162b2 vac 12/02/20 Recorded Fluvirin (oldterm) 8 03/22/15 Given Fluzone Preservative-Free (oldterm) 9 03/12/12 Giv en pneumococcal 23-valent vaccine 10/08/11 Given tetanus/diphtheria/pertussis, acel(Tdap) 09/08/11 Given tetanus/diphtheria/pertussis, acel(Tdap) 12/17/06 Recorded influ virus vac, H1N1, inactive(oldterm) 10 05/08/11 Given hepatitis B adult vaccine 06/14/02 Recorded 1Result Comment: [id number] 2Result Comment: [id number] 3Result Comment: [id number] 4Result Comment: [id number] 5Result Comment: [07/08/2017] [id number] 6Admin Note: [facility] 7Admin Note: [facility] [...] Gm, 4 Refills, Maintenance, 09/08/22 14:55:00 EST, [facility], 30, INHALE 2 PUFFS BY MOUTH EVERY FOUR HOURS NEEDED FOR WHEEZING... Start Date: 09/08/22 Status: Ordered cloNIDine 0.1 mg oral tablet 1, tablet, By Mouth, 2 times a day, PRN, # 60 tablet, Refills 1, Maintenance, NEEDED FOR FOR ANXIETY (VIAL), 08/18/22 9:30:00 EST, Route to Pharmacy Electronically, [facility], 160, cm, 07/18/22 11:39:00 EST, Height, 98.8, kg, 07/17/22 8:58... Start Date: 08/18/22 Status: Ordered colchicine 0.6 mg oral tablet 1, tablet, By Mouth, Daily, ^1R1., # 30 tablet, Refills 11, Maintenance, 09/10/22 5:31:00 EST, [email or web address], 160, cm, 09/09/22 14:31:00 EST, Height, [...] 11 Refills, Maintenance, 06/25/21 12:00:00 EST, Capsule, [facility], Partial fill upon patient request if [...] 07/17/22 17:07:00 EST, [facility], [facility], 160, cm, 07/17/22 12:03:00 EST, Height, [...] 5 Refills, Maintenance, 07/29/22 6:50:00 EST, Tablet, [facility], Partial fill upon patient request if [...] tablet, 0 Refills, Maintenance, 09/04/22 16:29:00 EST, [facility], Partial fill upon patient request if the prescription is for a schedule II opioid drug., 160, cm, 09/04/22 16:17:00 EST, Height, 98.8, k... Start Date: 09/04/22 Status: Ordered rOPINIRole 0.5 mg oral tablet See Instructions, TAKE 1 TABLET BY MOUTH THREE TIMES DAILY^1R1,1R3,1R4, # 90 tablet, 5 Refills, Maintenance, 07/24/22 23:41:00 EST, [facility], 160, cm, 07/18/22 11:39:00 EST, Height, 98.8, kg, 07/17/22 8:58:00 EST, Dry Weight Start Date: 07/24/22 Status: Ordered rosuvastatin 10 mg oral tablet 1 tablet, By Mouth, Daily, ^1R1., # 30 tablet, 5 Refills, Maintenance, 09/10/22 5:31:00 EST, [facility], 160, cm, 09/09/22 14:31:00 EST, Height, 98.8, kg, 07/17/22 8:58:00 EST, Dry Weight Start Date: 09/10/22 Status: Ordered Symbicort 80mcg/4.5mcg Inhaler See Instructions, INHALE 2 PUFFS BY MOUTH TWICE A DAY RINSE MOUTH AND THROAT AFTER USE, # 10.2 Gm, Refills 5, Maintenance, 07/30/22 21:16:00 EST, Instructions Replace Required Details, Route to Pharmacy Electronically, NCPDP_[id number], [facility]... 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 Confirmed [...] Team Personnel Name: Sandra Wills NP Position: [facility] Associate Professional Member Role: Primary Care Nurse Address: Address: [address] [place] [address] [place] [address]- [place] Name: Marley Alejo RN Position: [facility] RN Member Role: Primary Care Nurse Name: Eulogio Nickerson MD Position: [facility] Primary Care Physician Member Role: PCP Address: Address: [address] [place] [address]- [place] Name: Alma Delia Fonseca PharmD Position: [facility] Associate Professional Member Role: Lifetime Consulting Provider Address: Address: [address] [place] [address] [place] [address]- [place] Name: Yolis Mattson RN Position: [facility] RN Member Role: Primary Care Nurse Name: Priscila Garzon RN Position: [facility] RN Member Role: Primary Care Nurse Name: Renea Mart RN Position: S RN Member Role: Primary Care Nurse Care Team Related Persons Name: FAUZIA JANSEN Address: home [address] [place] [address] Name: AURELIA SHETH Address: [address] [place] [address] Name: BRE OSORIO Address: [address] [place] [address]
--- OUTSIDE RECORDS SUMMARY | 2024-01-02 21:18 | XMS_ITS | Continuity of Care Document ---
Author Organization [facility] Nolberto Address [address] [place] [address]- Care Team Providers Care Manufacturing Engineering Technologist Name Role Phone Krishan GRIDER, Eulogio Molina Primary Care Physician [phone] Encounter [facility] Date(s): 05/05/22 - 06/04/22 [facility] Adult [address] [place] [address]- Attending Physician: Desire Velasquez Admitting Physician: AdmDesire [...] vaccine, inactivated 05/10/07 Jarrett rded SARS-CoV-2 mRNA (zbyynnu-eswl-lothe) vax 08/30/21 Recorded SARS-CoV-2 (COVID-19) mRNA BNT-162b2 vac 01/02/21 Recorded SARS-CoV-2 (COVID-19) mRNA BNT-162b2 vac 12/02/20 Recorded Fluvirin (oldterm) 8 03/22/15 Given Fluzone Preservative-Free (oldterm) 9 03/12/12 Giv en pneumococcal 23-valent vaccine 10/08/11 Given tetanus/diphtheria/pertussis, acel(Tdap) 09/08/11 Given tetanus/diphtheria/pertussis, acel(Tdap) 12/17/06 Recorded influ virus vac, H1N1, inactive(oldterm) 10 05/08/11 Given hepatitis B adult vaccine 06/14/02 Recorded 1Result Comment: [id number] 2Result Comment: [id number] 3Result Comment: [id number] 4Result Comment: [id number] 5Result Comment: [07/08/2017] [id number] 6Admin Note: [facility] 7Admin Note: [facility] [...] Gm, 4 Refills, Maintenance, 04/28/22 13:11:00 EDT, [facility], 17, INHALE 2 PUFFS BY MOUTH EVERY FOUR HOURS NEEDED FOR WHEEZING... Start Date: 04/28/22 Status: Ordered cloNIDine 0.1 mg oral tablet See Instructions, TAKE 1 TABLET BY MOUTH TWICE A DAY NEEDED FOR FOR ANXIETY (VIAL), # 60 tablet,Refills 1, Maintenance, 04/28/22 13:11:00 EDT, Instructions Replace Required Details, Route to Pharmacy Electronically, [facility], 159, cm, 06... Start Date: 04/28/22 Status: Ordered colchicine 0.6 mg oral tablet 0.6 mg, 1, tablet, By Mouth, Daily, # 30 tablet, Refills 11, Tot. Refills 11, Maintenance, 227:00:00 EDT, Route to Pharmacy Electronically, [facility], Partial fill upon patient request if the prescription is for a schedule II opioid dr... Start Date: 10/30/21 Status: Ordered digoxin 0.125 mg oral tablet 1, tablet, By Mouth, Daily, # 90 tablet, Refills 0, Maintenance, 05/29/22 6:33:00 EDT, Route to Pharmacy Electronically, [facility], 159, cm, 05/05/22 11:32:00 EDT, Height, 98.8, kg, 229:12:00 EDT, Dry Weight Start Date: 05/29/22 Status: Ordered docusate sodium 100 mg oral capsule 100 mg, 1, capsule, By Mouth, 2 times a day, hold for loose stool, # 60 capsule, Refills 0, Tot. Refills 0, Maintenance, 01/11/22 7:25:00 EDT, Route to Pharmacy Electronically, [facility], Partial fill upon patient request if the [...] Electronically, [facility], 165, cm, 06/25/21 11:35:00 EST, Height, 127, kg, 02/03/20 14:39:00 EDT, Dry Weight Start Date: 08/05/21 Status: Ordered penicillin V potassium 250 mg oral tablet 1 tablet, By Mouth, 2 times a day, CELLULITIS PROPHYLAXIS., # 60 tablet, 5 Refills, Maintenance, 05/29/22 6:19:00 EDT, [facility], 159, cm, 05/05/22 11:32:00 EDT, Height, 98.8, kg, 01/10/22 9:12:00 EDT, Dry Weight Start Date: 05/29/22 Status: Ordered rOPINIRole 0.5 mg oral tablet 1 tablet, By Mouth, 3 times a day, # 90 tablet, 5 Refills, 03/07/22 6:14:00 EDT, [facility], 159, cm, 01/11/22 15:15:00 EDT, Height, 98.8, kg, 01/10/22 9:12:00 EDT, Dry Weight Start Date: 03/07/22 Status: Ordered rosuvastatin 10 mg oral tablet See Instructions, TAKE 1 TABLET BY MOUTH DAILY, # 90 tablet, 1 Refills, Maintenance, 04/04/22 11:35:00 EDT, [facility], 159, cm, 01/11/22 15:15:00 EDT, Height, 98.8, kg, 01/10/22 9:12:00 EDT,Dry Weight Start Date: 04/04/22 Status: Ordered Symbicort 80mcg/4.5mcg Inhaler See Instructions, INHALE 2 PUFFS BY MOUTH TWICE A DAY RINSE MOUTH AND THROAT AFTER USE, # 10.2 Gm, Refills 5, Instructions Replace Required Details, Route to Pharmacy Electronically, NCPDP_[id number], [facility], 159, cm, 01/11/22 15:15:00 EDT... 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 [...] Response Smoking Status Current every day ruddy ngjennifer entered on: 05/04/18 Sex Female Hospital Consult [...] BH Lab Results Authored Date: * Courtney Onofre: PERFORM Event Display: Radiology Results Scanned Authored Date: * Marley Goldsmith: PERFORM Event Display: Radiology Results Scanned Authored Date: * Maxine Cuevas: PERFORM, SIGN, VERIFY Event Display: Patient Education/Instruction Authored Date: [facility] BMP Juany Lacysuzanne Clinical Summary Person Information Name FRANKLIN HARRISON [...] primary care provider, you may find a [facility] provider by calling [facility] at [phone]. Patient Education Information Follow-up Details: Patient Education Material: * Tamie Mccormick: PERFORM Event Display: Radiology Results Scanned Authored Date: Cardiology Consult note * Event Display: Consult Note Cardiology Authored Date: * Event Display: Consult Note Cardiology Authored Date: Patient Care team information Care Team Personnel Name: Sandra Wills NP Position: [facility] Associate Professional Member Role: Primary Care Nurse Address: Address: [address] [place] [address] [place] [address]- [place] Name: Marley Alejo RN Position: [facility] RN Member Role: Primary Care Nurse Name: Eulogio Nickerson MD Position: [facility] Primary Care Physician Member Role: PCP Address: Address: [address] [place] [address]- [place] Name: Alma Delia Fonseca PharmD Position: [facility] Associate Professional Member Role: Lifetime Consulting Provider Address: Address: [address] [place] [address] [place] [address]- [place] Name: Yolis Mattson RN Position: [facility] RN Member Role: Primary Care Nurse Name: Priscila Garzon RN Position: [facility] RN Member Role: Primary Care Nurse Care Team Related Persons Name: FAUZIA JANSEN Address: [address] [place] [address] Name: ANDRA JANSEN Address: home [address] [place] [address] Name: AURELIA SHETH Address: home [address] [place] [address] Name: BRE OSORIO Address: home [address] [place] [address]
--- OUTSIDE RECORDS SUMMARY | 2024-01-02 21:18 | XMS_ITS | Continuity of Care Document ---
Author Organization [facility] Address [address] [place] [address], [address] [place] [address]- Care Team Providers Care Sales Service Technician Name Role Phone Fuentes Garcia MD Primary Care Physician Encounter [facility] Date(s): 05/04/19 - 08/27/19 [facility] [address] [facility], [address]th [place] [address]- Attending Physician: Not on Staff, Attending MD [...] H1N1, inactive(oldterm) 7 05/08/11 Given 1Result Comment: [id number] 2Result Comment: [07/08/2017] [id number] 3Admin Note: [facility] 4Admin Note: [facility] [...] Maintenance, 07/18/19 9:13:00 EST, [facility] [address] [place] [address], 162, cm, 05/23/19 11:50:00 EDT, Height, 116.4, kg, 05/04/19 11:52:00 EDT, Dry Weight Start Date: 07/18/19 Stop Date: 07/19/19 Status: Ordered chlorthalidone 25 mg oral tablet 25 mg, 1, tablet, By Mouth, Daily, # 30 tablet, Refills 2, Tot. Refills 2, Maintenance, 06/17/19 14:30:22 EST, Route to Pharmacy Electronically, NCPDP_ID- [id number], [facility] [address] [facility], please schedule appt for further refills Start Date: 06/17/19 Status: Ordered Claritin 10 mg oral tablet 10 mg, 1, tablet, By Mouth, Daily, for 30 days, # 30 tablet, Refills 11, Tot. Refills 11, Acute 05/11/20 17:36:41 EDT, 05/17/19 17:36:41 EDT, Route to Pharmacy Electronically, NCPDP_[id number], [facility]IN[facility] [address] Start Date: 05/17/19 Stop Date: 05/11/20 [...] mL, 5 Refills, Maintenance, 10/01/18 10:08:42 EST, [place], 2 sprays Nares, Both 2 times a [...] 12/08/18 12:09:04 EDT, Route to Pharmacy Electronically, NCPDP_ID-[id number], [facility] [address] [facility] Start Date: 12/08/18 Status: Ordered MiraLax [...] 1 tablet by mouth twice a day, [facility] Start Date: 05/17/19 Status: Ordered penicillin [...] NEEDED FOR WHEEZING - REPLACES PROAIR, [facility] [address] Start Date: 01/24/19 Status: Ordered Vitamin [...] long-term use(Confirmed) Active Gastric banding status(Confirmed) 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
--- OUTSIDE RECORDS SUMMARY | 2024-01-02 21:18 | XMS_ITS | Continuity of Care Document ---
Author Organization [facility] Robin Jane Nolberto Address [address] [place] [address]- Care Team Providers Care Cabin Worker Name Role Phone Kyle Ahumada DO Primary Care Physician [phone] [facility]counter [facility] Date[facility]): 03/13/23 - 04/12/23 [facility] Robin Bolañosley Adult [address] [place] [address]- Allergies, Adverse Reactions, Alerts Substance Reaction Severity [...] vaccine, inactivated 05/10/07 Jarrett rded SARS-CoV-2 mRNA ([id number]) vax 08/30/21 Recorded SARS-CoV-2 (COVID-19) mRNA BNT-162b2 vac 01/02/21 Recorded SARS-CoV-2 (COVID-19) mRNA BNT-162b2 vac 12/02/20 Recorded Fluvirin (oldterm) 8 03/22/15 Given Fluzone Preservative-Free (oldterm) 9 03/12/12 Giv en pneumococcal 23-valent vaccine 10/08/11 Given tetanus/diphtheria/pertussis, acel(Tdap) 09/08/11 Given tetanus/diphtheria/pertussis, acel(Tdap) 12/17/06 Recorded influ virus vac, H1N1, inactive(oldterm) 10 05/08/11 Given hepatitis B adult vaccine 06/14/02 Recorded 1Result Comment: [id number] 2Result Comment: [id number] 3Result Comment: [id number] 4Result Comment: [id number] 5Result Comment: [07/08/2017] [id number] 6Admin Note: [facility] 7Admin Note: [facility] 04-08 8Admin Note: Given at [facility] 9Admin Note: 03-11-12 GIVEN AT [facility] 10Admin Note: rcvd elsewhere Medications acetaminophen 325 mg oral tablet 650 mg, 2, tablet, By Mouth, Every 6 hours, PRN, # 100 tablet, Refills 1, Tot. Refills 1, Maintenance, Pain , Moderate, 03/13/23 16:59:00 EDT, Route to Pharmacy Electronically, [facility], Partial fill upon patient request if the prescription... Start Date: 03/13/23 Status: Ordered Albuterol (Eqv-ProAir HFA) 90 mcg/inh inhalation aerosol See Instructions, INHALE 2 PUFFS BY MOUTH EVERY FOUR HOURS NEEDED FOR WHEEZING OR SHORTNESS OF BREATH, # 8.5 Gm, 5 Refills, Maintenance, 03/13/23 9:55:00 EDT, [facility], 30, INHALE 2 PUFFS BY MOUTH [...] 03/12/23 15:30:00 EDT, Route to Pharmacy Electronically, [facility], 160, cm, 03/02/23 9:56:00 EDT, Height, 98.8, k... Start Date: 03/12/23 Status: Ordered cloNIDine 0.1 mg oral tablet 0.1 mg, 1, tablet, By Mouth, 2 times a day, PRN, # 60 tablet, Refills 2, Tot. Refills 2, Maintenance, Anxiety, 03/12/23 16:38:00 EDT, Route to Pharmacy Electronically, [facility], Partial fill upon patient request if the prescription is for a... Start Date: 03/12/23 Status: Ordered cyclobenzaprine 5 mg oral tablet 1 tablet = 5 mg, By Mouth, 3 times a day, PRN Spasm, can increase to 2 three time a day if needed, # 90 tablet, 2 Refills, Maintenance, 04/02/23 12:59:00 EDT, Tablet, [facility], Partial fillupon patient request if the prescription is for a s... Start Date: 04/02/23 Status: Ordered DilTIAZem (Eqv-Dilacor XR) 240 mg/24 hours oral capsule, extended release 1 capsule = 240 mg, By Mouth, Daily, # 90 capsule, 3 Refills, Maintenance, 03/13/23 17:04:00 EDT, CD Capsule, [facility], Partial fill upon patient request [...] 03/13/23 16:56:00 EDT, Route to Pharmacy Electronically, [facility], Partial fill upon patient request if the prescriptio... Start Date: 03/13/23 Stop Date: 04/12/23 Status: Ordered duloxetine 20 mg oral enteric coated capsule 2 capsule = 40 mg, By Mouth, Daily at bedtime, # 60 capsule, 11 Refills, Maintenance, 06/25/21 12:00:00 EST, Capsule, [facility], Partial fill upon patient request [...] 03/02/23 18:12:00 EDT, Route to Pharmacy Electronically, [facility], Partial fill upon patient request if the prescription is for a schedule II opioid drug... Start Date: 03/02/23 Status: Ordered ipratropium nasal 21 mcg/inh spray 2 sprays = 42 mcg, Nares, Both, 2 times a day, # 30 mL, 5 Refills, Maintenance, 03/13/23 16:58:00 EDT, [place], [facility], Partial fill upon patient request [...] 02/07/23 18:12:00 EDT, Route to Pharmacy Electronically, [facility], 160, cm, 12/16/22 10:46:00 EDT, [...] 3 Refills, Maintenance, 03/13/23 17:03:00 EDT, Patch, [facility], Partial fill upon patient request if the prescription is for a schedule II opioid drug., 1 patch Topically Daily, 160, cm, 03/02/23 9:56:0... Start Date: 03/13/23 Status: Ordered penicillin V potassium 250 mg oral tablet 1 tablet, By Mouth, 2 times a day, ^1R1,1R4., # 60 tablet, 5 Refills, Maintenance, 04/10/23 16:03:00 EDT, [facility], 160, cm, 04/02/23 12:45:00 EDT, Height, 98.8, kg, 07/17/22 8:58:00 EST, Dry Weight Start Date: 04/10/23 Status: Ordered rOPINIRole 0.5 mg oral tablet 1 tablet, By Mouth, 3 times a day, ^1R1,1R3,1R4., # 90 tablet, 5 Refills, Maintenance, 12/24/22 14:21:00 EDT, [facility], 160, cm, 12/16/22 10:46:00 EDT, Height, 98.8, kg, 07/17/22 8:58:00 EST, Dry Weight Start Date: 12/24/22 Status: Ordered rosuvastatin 10 mg oral tablet 1 tablet, By Mouth, Daily, ^1R1., # 30 tablet, 5 Refills, Maintenance, 02/07/23 18:12:00 EDT, [facility], 160, cm, 12/16/22 10:46:00 EDT, Height, 98.8, kg, 07/17/22 8:58:00 EST, Dry Weight Start Date: 02/07/23 Status: Ordered Symbicort 80mcg/4.5mcg Inhaler See Instructions, INHALE 2 PUFFS BY MOUTH TWICE A DAY RINSE MOUTH AND THROAT AFTER USE, # 10.2 Gm, Refills 5, Tot. Refills 5, Maintenance, 03/13/23 10:13:00 EDT, Instructions Replace Required Details, Route to Pharmacy Electronically, [id number]... 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 [...] Team Personnel Name: Sandra Wills NP Position: [facility] PCO Associate Professional Member Role: Primary Care Nurse Address: Address: [address] [facility] [place] [address]- [place] Name: Marley Alejo RN Position: [facility] RN Member Role: Primary Care Nurse Name: Alma Delia Fonseca PharmD Position: [facility] Associate Professional Member Role: Lifetime Consulting Provider Address: Address: [address] [place] [address] [place] [address]- [place] Name: Yolis Mattson RN Position: [facility] RN Member Role: Primary Care Nurse Name: Priscila Garzon RN Position: [facility] RN Member Role: Primary Care Nurse Name: Kyle Ahumada DO Position: [facility] Physician - Primary Care Member Role: PCP Address: Address: [address] [place] [address]- [place] Name: Renea Mart RN Position: [facility] RN Member Role: Primary Care Nurse Care Team Related Persons Name: FAUZIA JANSEN Address: home [address] [place] [address] Name: AURELIA SHETH Address: [address] [place] [address] Name: BRE OSORIO Address: home [address] [place] [address]
--- OUTSIDE RECORDS SUMMARY | 2024-01-02 21:18 | XMS_ITS | Continuity of Care Document ---
Author Organization [facility] Buck Nolberto lt Address [address] [place] [address]- Care Team Providers Care Imagery Intelligence Name Role Phone Radha GRIDER, Fuentes Kenny Primary Care Physician [facility] Date[facility]s): 07/13/20 - 08/12/20 [facility] Adult [address] [place] [address]- Allergies, Adverse Reactions, Alerts Substance Reaction Severity [...] H1N1, inactive(oldterm) 8 05/08/11 Given 1Result Comment: [id number] 2Result Comment: [id number] 3Result Comment: [07/08/2017] [id number] 4Admin Note: [facility] 5Admin Note: [facility] [...] 5 Refills, Maintenance, 07/03/20 9:16:00 EST, Cream, [facility] #[id number], Partial fill upon patient request if the [...] 06/04/20 12:56:00 EST, Route to Pharmacy Electronically, [facility] #[id number], please schedule appt for further refills, 165, cm, 05/16/20 14:15:00 EDT, Hei... Start Date: 06/04/20 Status: Ordered Claritin 10 mg oral tablet 10 mg, 1, tablet, By Mouth, Daily, for 90 days, # 90 tablet, Refills 3, Tot. Refills 3, Acute 07/28/21 15:22:00 EST, 08/02/20 15:22:00 EST, Route to Pharmacy Electronically, [facility] #[id number], 165, cm, 07/31/20 14:32:00 EST, Height, 127, kg,... Start Date: 08/02/20 Stop Date: 07/28/21 Status: Ordered colchicine 0.6 mg oral tablet See Instructions, take 1 tablet by mouth once daily if needed for PSEUDOGOUT pain, # 30 tablet, Refills 5, Tot. Refills 5, Soft Stop, 01/05/20 8:41:00 EDT, Instructions Replace Required Details, Route to Pharmacy Electronically, [facility] #... Start Date: 01/05/20 Status: Ordered Disposable [...] Gm, 3 Refills, Maintenance, 06/22/20 14:58:00 EST, [facility] #[id number], 165, cm, 06/07/20 13:52:00 EST, Height, 127, [...] mL, 5 Refills, Maintenance, 10/01/18 10:08:42 EST, [place], 2 sprays Nares, Both 2 times a [...] 08/02/20 16:13:00 EST, Route to Pharmacy Electronically, [facility] #[id number], D/C RX ON FILE FOR ABRAM, 165, [...] 09/29/20 14:57:00 EST, 07/31/20 14:57:00 EST, Capsule, [facility] #[id number], Partial fill upon patient request if the prescription is for a schedule II opi... Start Date: 07/31/20 Stop Date: 09/29/20 Status: Ordered methenamine hippurate 1 gm oral tablet 1 tablet = 1 Gm, By Mouth, 2 times a day, # 60 tablet, 1 Refills, Maintenance, 07/12/20 13:56:00 EST, [facility] #[id number], Partial fill upon patient request if the prescription is for a schedule II opioid drug., 165, cm, 07/11/20 15:24:00 EST,... Start Date: 07/12/20 Stop Date: 07/05/21 Status: Ordered metoprolol 25 mg oral tablet 25 mg, 1, tablet, By Mouth, 2 times a day, # 60 tablet, Refills 5, Tot. Refills 5, Maintenance, 03/22/20 16:34:00 EDT, Route to Pharmacy Electronically, [facility] #[id number], 165, cm, 02/02/2014:39:00 EDT, Height, 127, kg, [...] 0 Refills, Maintenance, 06/18/20 16:57:00 EST, Patch, [facility] #[id number], Partial fill upon patient request, 165, cm, 06/07/20 13:52:00 EST, Height, 127, kg, 02/03/20 14:39:00 EDT, Dry Weight Start Date: 06/18/20 Stop Date: 07/30/20 Status: Ordered NuLYTELY with Flavor Packs oral powder for reconstitution See Instructions, Drink 240mL every 15-20 minutes until first half is gone. Repeat 6 hours prior toprocedure., # 4,000 mL, 0 Refills, Maintenance, 06/28/20 17:09:00 EST, [facility] #[id number],Partial fill upon patient request if the prescript... Start Date: 06/28/20 Status: Ordered oxyCODONE 10 mg oral tablet 1 tablet = 10 mg, By Mouth, Every 8 hours, DX Z79.891 G89.29 M47.816 OK TO FILL LESS THAN PRESCRIBED AMOUNT, # 84 tablet, 0 Refills, Maintenance, 07/16/20 17:18:00 EST, Tablet, [facility] #[id number], 07/17/20, 165, cm, 07/11/20 15:24:00 EST, He... [...] 5 Refills, Maintenance, 04/30/20 15:13:00 EDT, Tablet, [facility] #[id number], 165, cm, 04/30/20 14:30:00 EDT, Height, 127, kg, 02/03/20 14:39:00 EDT, Dry Weight Start Date: 04/30/20 Status: Ordered rosuvastatin 10 mg oral tablet 1 tablet = 10 mg, By Mouth, Daily, # 90 tablet, 3 Refills, Maintenance, 05/03/20 16:35:00 EDT, Tablet, [facility] #[id number], d/c rx for capsules, 165, cm, 04/30/20 14:30:00 EDT, Height, 127, kg, 02/03/20 14:39:00 EDT, Dry Weight Start Date: 05/03/20 Status: Ordered Ventolin HFA 108 mcg/inh inhalation aerosol with adapter 2 puffs, Inhalation, Every 4 hours, PRN Wheezing/Shortness of Breath, # 1 each, 11 Refills, Soft Stop, 01/19/20 11:46:00 EDT, [facility] #[id number], 165, cm, 01/16/20 6:17:00 EDT, Height, 128.1, kg, 01/16/20 6:17:00 EDT, Dry Weight Start Date: 01/19/20 Status: Ordered warfarin 5 mg oral tablet 1 tablet = 5 mg, By Mouth, Daily, dosing subject to change pending inr lab values, # 30 tablet, 5 Refills, Maintenance, 02/15/20 13:21:00 EDT, Tablet, [facility] #[id number], 165, cm, 02/03/20 14:39:00 EDT, Height, 127, [...] long-term use(Confirmed) Active Gastric banding status(Confirmed) Active snf current use of 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
--- OUTSIDE RECORDS SUMMARY | 2024-01-02 21:18 | XMS_ITS | Continuity of Care Document ---
Author Organization [facility] Address [address] [place] [address]- Care Team Providers Care Seo Coordinator Name Role Phone Fuentes Garcia MD Primary Care Physician [facility] Date[facility]s): 02/02/21 - 03/10/[address] [address] Attending Physician: Fuentes Garcia MD Admitting Physician: [...] B adult vaccine 06/14/02 Recorded 1Result Comment: [id number] 2Result Comment: [id number] 3Result Comment: [07/08/2017] [id number] 4Admin Note: [facility] 5Admin Note: [facility] [...] 11 Refills, Maintenance, 10/31/20 14:14:00 EDT, Cream, [facility] #[id number], Partial fill upon patient request if the [...] 02/12/21 12:56:00 EDT, Route to Pharmacy Electronically, [facility] #[id number], 165, cm, 01/11/21 14:05:00 EDT, Height, 127, [...] PMR, history of smoking fax to : [phone], 04... Start Date: 10/26/20 Status: Ordered Disposable [...] Gm, 3 Refills, Maintenance, 06/22/20 14:58:00 EST, [facility] #[id number], 165, cm, 06/07/20 13:52:00 EST, Height, 127, [...] mL, 5 Refills, Maintenance, 10/01/18 10:08:42 EST, [place], 2 sprays Nares, Both 2 times a [...] 08/02/20 16:13:00 EST, Route to Pharmacy Electronically, [facility][id number], D/C RX ON FILE FOR ABRAM, 165, [...] 3 Refills, Maintenance, 02/25/21 10:31:00 EDT, Tablet, [facility] #[id number], Partial fill upon patient request if the prescription is for a schedule II opioid drug., 165, cm, 01/11/21 14:... Start Date: 02/25/21 Status: Ordered methenamine hippurate 1 gm oral tablet 1 tablet = 1 Gm, By Mouth, 2 times a day, # 60 tablet, 1 Refills, Maintenance, 07/12/20 13:56:00 EST, [facility] #[id number], Partial fill upon patient request if the prescription is for a schedule II opioid drug., 165, cm, 07/11/20 15:24:00 EST,... Start Date: 07/12/20 Stop Date: 07/05/21 Status: Ordered Metoprolol Tartrate 25 mg oral tablet 1 tablet, By Mouth, 2 times a day, # 60 tablet, 2 Refills, Maintenance, 03/07/21 10:08:00 EDT, [facility] #[id number], 165, cm, 02/28/21 14:22:00 EDT, Height, 127, kg, 02/03/20 14:39:00 EDT, DryWeight Start Date: 03/07/21 Status: Ordered Mitigare 0.6 mg oral capsule 1 capsule, By Mouth, Daily, # 30 capsule, 11 Refills, Maintenance, 12/31/20 16:51:00 EDT, [facility] #[id number], 165, cm, 11/19/20 11:32:00 EDT, Height, 127, [...] 0 Refills, Maintenance, 06/18/20 16:57:00 EST, Patch, [facility] #[id number], Partial fill upon patient request, 165, cm, 06/07/20 13:52:00 EST, Height, 127, kg, 02/03/20 14:39:00 EDT, Dry Weight Start Date: 06/18/20 Stop Date: 07/30/20 Status: Ordered NuLYTELY with Flavor Packs oral powder for reconstitution See Instructions, Drink 240mL every 15-20 minutes until first half is gone. Repeat 6 hours prior toprocedure., # 4,000 mL, 0 Refills, Maintenance, 06/28/20 17:09:00 EST, [facility] #[id number],Partial fill upon patient request if the prescript... Start Date: 06/28/20 Status: Ordered oxyCODONE 10 mg oral tablet 1 tablet = 10 mg, By Mouth, Every 8 hours, DX Z79.891 G89.29 M47.816 OK TO FILL LESS THAN PRESCRIBED AMOUNT, # 84 tablet, 0 Refills, Maintenance, 02/25/21 12:52:00 EDT, Tablet, [facility] #[id number], 02/26/21, 165, cm, 01/11/21 14:05:00 EDT, He... Start Date: 02/25/21 Stop Date: 03/25/21 Status: Ordered penicillin V potassium 250 mg oral tablet 1 tablet = 250 mg, By Mouth, 2 times a day, Cellulitis prophylaxis, # 60 tablet, 11 Refills, Maintenance, 10/30/20 12:09:00 EDT, [facility] #[id number], 165, cm, 10/19/20 8:59:00 EDT, Height, 127, kg, 02/03/20 14:39:00 EDT, Dry Weight Start Date: 10/30/20 Status: Ordered predniSONE 5 mg oral tablet 1 tablet = 5 mg, By Mouth, Daily, # 30 tablet, 0 Refills, Maintenance, 01/11/21 14:20:00 EDT, Tablet, [facility] #[id number], Partial fill upon patient request if the [...] 5 Refills, Maintenance, 04/30/20 15:13:00 EDT, Tablet, [facility] #[id number], 165, cm, 04/30/20 14:30:00 EDT, Height, 127, kg, 02/03/20 14:39:00 EDT, Dry Weight Start Date: 04/30/20 Status: Ordered rosuvastatin 10 mg oral tablet 1 tablet = 10 mg, By Mouth, Daily, # 90 tablet, 3 Refills, Maintenance, 05/03/20 16:35:00 EDT, Tablet, [facility] #[id number], d/c rx for capsules, 165, cm, 04/30/20 14:30:00 EDT, Height, 127, kg, 02/03/20 14:39:00 EDT, Dry Weight Start Date: 05/03/20 Status: Ordered Ventolin HFA 108 mcg/inh inhalation aerosol with adapter 2 puffs, Inhalation, Every 4 hours, PRN Wheezing/Shortness of Breath, # 1 each, 5 Refills, Soft Stop, 11/08/20 8:46:00 EDT, [facility] #[id number], 165, cm, 10/19/20 8:59:00 EDT, Height, 127, kg, 02/03/20 14:39:00 EDT, Dry Weight Start Date: 11/08/20 Status: Ordered warfarin 2.5 mg oral tablet See Instructions, take 2.5mg sun tues thurs sat subjet to change based on INR per MD, # 90 each, 3 Refills, Maintenance, 02/11/21 10:38:00 EDT, Tablet, [facility] #[id number], PLEASE GIVE THIS IN COMBINATION WITH 5MG TABLETS;, 165, cm, 01/11/21... Start Date: 02/11/21 Status: Ordered warfarin 5 mg oral tablet 1 tablet = 5 mg, By Mouth, Daily, dosing subject to change pending inr lab values TAKE thu,# 90 tablet, 11 Refills, Maintenance, 02/11/21 10:42:00 EDT, Tablet, [facility][id number], PLEASE GIVE BOTH 5MG TABLETS AND 2.5MG [...]
--- OUTSIDE RECORDS SUMMARY | 2024-01-02 21:19 | XMS_ITS | Continuity of Care Document ---
Author Organization [facility] Buck Nolberto Address [address] [place] [address]- Care Team Providers Care Cotton Broker Name Role Phone Krishan GRIDER, Eulogio Molina Primary Care Physician Encounter [facility] Date(s): 08/06/22 - 09/05/22 [facility] Adult [address] [place] [address]- Allergies, Adverse Reactions, Alerts Substance Reaction Severity [...] vaccine, inactivated 05/10/07 Jarrett rded SARS-CoV-2 mRNA ([id number]) vax 08/30/21 Recorded SARS-CoV-2 (COVID-19) mRNA BNT-162b2 vac 01/02/21 Recorded SARS-CoV-2 (COVID-19) mRNA BNT-162b2 vac 12/02/20 Recorded Fluvirin (oldterm) 8 03/22/15 Given Fluzone Preservative-Free (oldterm) 9 03/12/12 Giv en pneumococcal 23-valent vaccine 10/08/11 Given tetanus/diphtheria/pertussis, acel(Tdap) 09/08/11 Given tetanus/diphtheria/pertussis, acel(Tdap) 12/17/06 Recorded influ virus vac, H1N1, inactive(oldterm) 10 05/08/11 Given hepatitis B adult vaccine 06/14/02 Recorded 1Result Comment: [id number] 2Result Comment: [id number] 3Result Comment: [id number] 4Result Comment: [id number] 5Result Comment: [07/08/2017] [id number] 6Admin Note: [facility] 7[facility] Note: [facility] [...] Gm, 4 Refills, Maintenance, 04/28/22 13:11:00 EDT, [facility], 17, INHALE 2 PUFFS BY MOUTH EVERY FOUR HOURS NEEDED FOR WHEEZING... Start Date: 04/28/22 Status: Ordered cloNIDine 0.1 mg oral tablet 1, tablet, By Mouth, 2 times a day, PRN, # 60 tablet, Refills 1, Maintenance, NEEDED FOR FOR ANXIETY (VIAL), 08/18/22 9:30:00 EST, Route to Pharmacy Electronically, [facility], 160, cm, 07/18/22 11:39:00 EST, Height, 98.8, kg, 07/17/22 8:58... Start Date: 08/18/22 Status: Ordered colchicine 0.6 mg oral tablet 0.6 mg, 1, tablet, By Mouth, Daily, # 30 tablet, Refills 11, Tot. Refills 11, Maintenance, 227:00:00 EDT, Route to Pharmacy Electronically, [facility], Partial fill upon patient request if the prescription is for a schedule II opioid dr... Start Date: 10/30/21 Status: Ordered docusate sodium 100 mg oral capsule 100 mg, 1, capsule, By Mouth, 2 times a day, hold for loose stool, # 60 capsule, Refills 0, Tot. Refills 0, Maintenance, 01/11/22 7:25:00 EDT, Route to Pharmacy Electronically, [facility], Partial fill upon patient request if the prescri... Start Date: 01/11/22 Stop Date: 02/10/22 Status: Ordered duloxetine 20 mg oral enteric coated capsule 2 capsule = 40 mg, By Mouth, Daily at bedtime, # 60 capsule, 11 Refills, Maintenance, 06/25/21 12:00:00 EST, Capsule, [facility], Partial fill upon patient [...] 07/17/22 17:07:00 EST, [facility], 160, cm, 07/17/22 12:03:00 EST, Height, [...] 5 Refills, Maintenance, 07/29/22 6:50:00 EST, Tablet, [facility], Partial fill upon patient request if [...] tablet, 0 Refills, Maintenance, 09/04/22 16:29:00 EST, [facility], Partial fill upon patient request if the prescription is for a schedule II opioid drug., 160, cm, 09/04/22 16:17:00 EST, Height, 98.8, k... Start Date: 09/04/22 Status: Ordered rOPINIRole 0.5 mg oral tablet See Instructions, TAKE 1 TABLET BY MOUTH THREE TIMES DAILY^1R1,1R3,1R4, # 90 tablet, 5 Refills, Maintenance, 07/24/22 23:41:00 EST, [facility], 160, cm, 07/18/22 11:39:00 EST, Height, 98.8, kg, 07/17/22 8:58:00 EST, Dry Weight Start Date: 07/24/22 Status: Ordered rosuvastatin 5 mg oral tablet 2 tablet = 10 mg, By Mouth, Daily at bedtime, 0 Refills, Maintenance, 07/18/22 8:56:00 EST, Tablet,Partial fill upon patient request if the prescription is for a schedule II opioid drug. Start Date: 07/18/22 Status: Ordered Symbicort 80mcg/4.5mcg Inhaler See Instructions, INHALE 2 PUFFS BY MOUTH TWICE A DAY RINSE MOUTH AND THROAT AFTER USE, # 10.2 Gm, Refills 5, Maintenance, 07/30/22 21:16:00 EST, Instructions Replace Required Details, Route to Pharmacy Electronically, [id number], [facility]... 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 current use of opiate analgesic Confirmed Active [...] Member Role: Primary Care Nurse Address: Address: [address] [place] [address] [place] [address]- [place] Name: Marley Alejo RN Position: [facility] RN Member Role: Primary Care Nurse Name: Eulogio Nickerson MD Position: [facility] Primary Care Physician Member Role: PCP Address: Address: [address] [place] [address]- Name: Alma Delia Fonseca PharmD Position: [facility] Associate Professional Member Role: Lifetime Consulting Provider Address: Address: [address] [place] [address] [place] [address]- Name: Yolis Mattson RN Position: [facility] RN Member Role: Primary Care Nurse Name: Priscila Garzon RN Position: [facility] RN Member Role: Primary Care Nurse Name: Renea Mart RN Position: [facility] RN Member Role: Primary Care Nurse Care Team Related Persons Name: CARMENZA JANSENIRAIDA Address: home [address] [place] [address] Name: AURELIA SHETH Address: [address] [place] [address] Name: BRE OSORIO Address: [address] [place] [address]
--- OUTSIDE RECORDS SUMMARY | 2024-01-02 21:19 | XMS_ITS | Continuity of Care Document ---
Author Organization [facility] ter Address [address] [place] [id number]- Care Team Providers Care Electrician Technician Name Role Phone Eulogio Nickerson MD Primary Care Physician Encounter [facility] [place] Date(s): 12/06/21 - 02/16/[address] [address] Attending Physician: Ashu Zavaleta DO Admitting Physician: Ashu Zavaleta DO Referring Physician: Ashu Zavaleta DO Allergies, Adverse Reactions, Alerts Substance Reaction Severity Status Adhesive Bandage Active Dust copd exac/sinus congestion A ctive Immunizations Given and Recorded Vaccine Date Status Refusal Reason SARS-CoV-2 mRNA (nokelck-jyps-fwxbc) vax 08/30/21 Recorded influenza virus vaccine, inactivated [...] B adult vaccine 06/14/02 Recorded 1Result Comment: [id number] 2Result Comment: [id number] 3Result Comment: [id number] 4Result Comment: [07/08/2017] 25629-719-28 5Admin Note: [facility] 6Admin Note: [facility] [...] 8.5 Gm, 5 Refills, 05/29/21 17:13:00 EDT, [facility] #[id number], 17, INHALE 2 PUFFS BY MOUTH EVERY [...] Replace Required Details, Route to Pharmacy Electronically, [facility], 159, cm, 01/11/22 15:15:00 EDT, Height, 98.8, k... Start Date: 02/07/22 Status: Ordered colchicine 0.6 mg oral tablet 0.6 mg, 1, tablet, By Mouth, Daily, # 30 tablet, Refills 11, Tot. Refills 11, Maintenance, :00:00 EDT, Route to Pharmacy Electronically, [facility], Partial fill upon patient request [...] EDT, Route to Pharmacy Electronically, [facility], Partial fill upon patient request if the prescri... Start Date: 01/11/22 Stop Date: 02/10/22 Status: Ordered duloxetine 20 mg oral enteric coated capsule 2 capsule = 40 mg, By Mouth, Daily at bedtime, # 60 capsule, 11 Refills, Maintenance, 06/25/21 12:00:00 EST, Capsule, [facility], Partial fill upon patient request [...] Replace Required Details, Route to Pharmacy Electronically, [facility], 165, cm, 06/25/21 11:35:00 EST, [...] 12/11/21 13:41:00 EDT, Route to Pharmacy Electronically, [facility], Partial fill upon patient requestif [...] 03/05/22 16:36:00 EDT, 12/03/21 16:35:00 EDT, Gum, [facility] #[id number], Partial fill uponpatient request if the prescription [...] CELLULITIS PROPHYLAXIS., # 60 tablet, 6 Refills, [facility], 165, cm, 11/08/21 10:02:00 EDT, Height, 127, kg, 02/03/20 14:39:00 EDT, Dry Weight Start Date: 11/15/21 Status: Ordered rOPINIRole 0.5 mg oral tablet 1 tablet, By Mouth, 3 times a day, # 90 tablet, 5 Refills, 11/08/21 9:01:00 EDT, [facility], 165, cm, 11/04/21 8:42:00 EDT, Height, 127, kg, 02/03/20 14:39:00 EDT, Dry Weight Start Date: 11/08/21 Status: Ordered rosuvastatin 10 mg oral tablet See Instructions, TAKE 1 TABLET BY MOUTH DAILY, # 90 tablet, 1 Refills, Maintenance, 10/18/21 21:30:00 EDT, [facility], 165, cm, 09/04/21 14:01:00 EST, Height, [...] Replace Required Details, Route to Pharmacy Electronically, NCPDP_[id number], [facility], 159, cm, 01/11/22 15:15:00 EDT... Start Date: 02/13/22 Status: Ordered warfarin 1 mg oral tablet See Instructions, Take 1-10 tablets By Mouth Daily as directed by THOM, # 150 tablet, 0 Refills, Maintenance, 01/11/22 7:24:00 EDT, Tablet, [facility], Partial fill upon patient requestif [...]
--- OUTSIDE RECORDS SUMMARY | 2024-01-02 21:19 | XMS_ITS | Continuity of Care Document ---
Author Organization [facility] Address [address] [place] [address], [address] [place] [address]- Care Team Providers Care Seed Cone Picker Name Role Phone Fuentes Garcia MD Primary Care Physician [phone] Encounter [facility] Date(s): 05/04/19 - 08/21/19 [facility] [address] [facility], [address]th [place] [address]- Attending Physician: Not on Staff, Attending MD [...] H1N1, inactive(oldterm) 7 05/08/11 Given 1Result Comment: [id number] 2Result Comment: [07/08/2017] 10369-447-15 3Admin Note: [facility] 4Admin Note: [facility] [...] Maintenance, 07/18/19 9:13:00 EST, [facility] [address] [place] [address], 162, cm, 05/23/19 11:50:00 EDT, Height, 116.4, kg, 05/04/19 11:52:00 EDT, Dry Weight Start Date: 07/18/19 Stop Date: 07/19/19 Status: Ordered chlorthalidone 25 mg oral tablet 25 mg, 1, tablet, By Mouth, Daily, # 30 tablet, Refills 2, Tot. Refills 2, Maintenance, 06/17/19 14:30:22 EST, Route to Pharmacy Electronically, NCPDP_ID- [id number], [facility] [address] [facility], please schedule appt for further refills Start Date: 06/17/19 Status: Ordered Claritin 10 mg oral tablet 10 mg, 1, tablet, By Mouth, Daily, for 30 days, # 30 tablet, Refills 11, Tot. Refills 11, Acute 05/11/20 17:36:41 EDT, 05/17/19 17:36:41 EDT, Route to Pharmacy Electronically, NCPDP_[id number], AMEENA REINOSO [address] Start Date: 05/17/19 Stop Date: 05/11/20 [...] mL, 5 Refills, Maintenance, 10/01/18 10:08:42 EST, [place], 2 sprays Nares, Both 2 times a [...] 12/08/18 12:09:04 EDT, Route to Pharmacy Electronically, NCPDP_[id number], [facility] [address] [facility] Start Date: 12/08/18 Status: Ordered [...] 1 tablet by mouth twice a day, [address] Start Date: 05/17/19 Status: Ordered penicillin [...] NEEDED FOR WHEEZING - REPLACES PROAIR, AMEENA [address] Start Date: 01/24/19 Status: Ordered Vitamin [...]
--- OUTSIDE RECORDS SUMMARY | 2024-01-02 21:19 | XMS_ITS | Continuity of Care Document ---
Author Organization [facility] Address [address] [place] [id number]- Care Team Providers Care Pest Control Service Representative Name Role Phone Krishan GRIDER, Eulogio Molina Primary Care Physician [phone] Encounter [facility] [place] Date(s): 12/26/21 - 01/25/22 [facility] [address] [place] [address]- Allergies, Adverse Reactions, Alerts Substance Reaction Severity Status Adhesive Bandage Active Dust copd exac/sinus congestion A ctive Immunizations Given and Recorded Vaccine Date Status Refusal Reason SARS-CoV-2 mRNA (zlozbjm-jyzz-uvfez) vax 08/30/21 Recorded influenza virus vaccine, inactivated 1 06/25/21 Gi octavio influenza virus vaccine, inactivated 2 04/30/20 Gi octavio influenza virus vaccine, inactivated 3 05/23/19 Gi octvaio influenza virus vaccine, inactivated 04/27/18 Give n [...] B adult vaccine 06/14/02 Recorded 1Result Comment: [id number] 2Result Comment: [id number] 3Result Comment: [id number] 4Result Comment: [07/08/2017] 29349-178-85 5Admin Note: [facility] 6Admin Note: [facility] [...] 8.5 Gm, 5 Refills, 05/29/21 17:13:00 EDT, [id number], 17, INHALE 2 PUFFS BY MOUTH EVERY [...] 0 Refills, Maintenance, 01/11/22 7:25:00 EDT, Capsule, [facility], Partial fill upon patient [...] Details, Route to Pharmacy Electronically, [facility], 165, cm, 01/06/22 14:35:00 EDT, Height, 102.1, kg, ... Start Date: 01/09/22 Status: Ordered colchicine 0.6 mg oral tablet 0.6 mg, 1, tablet, By Mouth, Daily, # 30 tablet, Refills 11, Tot. Refills 11, Maintenance, :00:00 EDT, Route to Pharmacy Electronically, [facility], Partial fill upon patient request if [...] 01/11/22 7:25:00 EDT, Route to Pharmacy Electronically, [facility], Partial fill upon patient request if the prescri... Start Date: 01/11/22 Stop Date: 02/10/22 Status: Ordered duloxetine 20 mg oral enteric coated capsule 2 capsule = 40 mg, By Mouth, Daily at bedtime, # 60 capsule, 11 Refills, Maintenance, 06/25/21 12:00:00 EST, Capsule, [facility], Partial fill upon patient request if [...] Details, Route to Pharmacy Electronically, [facility], 165, cm, 06/25/21 11:35:00 EST, Height, [...] 12/11/21 13:41:00 EDT, Route to Pharmacy Electronically, [facility], Partial fill upon patient requestif the [...] 03/05/22 16:36:00 EDT, 12/03/21 16:35:00 EDT, Gum, [facility] #[id number], Partial fill uponpatient request if the prescription [...] CELLULITIS PROPHYLAXIS., # 60 tablet, 6 Refills, [email or web address], 165, cm, 11/08/21 10:02:00 EDT, Height, 127, kg, 02/03/20 14:39:00 EDT, Dry Weight Start Date: 11/15/21 Status: Ordered rOPINIRole 0.5 mg oral tablet 1 tablet, By Mouth, 3 times a day, # 90 tablet, 5 Refills, 11/08/21 9:01:00 EDT, [facility], 165, cm, 11/04/21 8:42:00 EDT, Height, 127, kg, 02/03/20 14:39:00 EDT, Dry Weight Start Date: 11/08/21 Status: Ordered rosuvastatin 10 mg oral tablet See Instructions, TAKE 1 TABLET BY MOUTH DAILY, # 90 tablet, 1 Refills, Maintenance, 10/18/21 21:30:00 EDT, [facility], 165, cm, 09/04/21 14:01:00 EST, Height, [...] 0 Refills, Maintenance, 01/11/22 7:24:00 EDT, Tablet, [facility], Partial fill upon [...]
--- OUTSIDE RECORDS SUMMARY | 2024-01-02 21:19 | XMS_ITS | Continuity of Care Document ---
Author Organization [facility] Address [address] [place] [address]- Care Team Providers Care Power Plant Operator Apprentice Name Role Phone Krishan GRIDER, Eulogio Molina Primary Care Physician Encounter [facility] [place] Date(s): 05/26/22 - 07/16/22 [facility] [address] [place], [place] [address] Attending Physician: Jacklyn An NP Admitting Physician: Jacklyn An NP Referring Physician: Irving Cam MD Allergies, Adverse Reactions, Alerts Substance Reaction [...] vaccine, inactivated 05/10/07 Jarrett rded SARS-CoV-2 mRNA (ktxqqbs-pars-rrolm) vax 08/30/21 Recorded SARS-CoV-2 (COVID-19) mRNA BNT-162b2 vac 01/02/21 Recorded SARS-CoV-2 (COVID-19) mRNA BNT-162b2 vac 12/02/20 Recorded Fluvirin (oldterm) 8 03/22/15 Given Fluzone Preservative-Free (oldterm) 9 03/12/12 Giv en pneumococcal 23-valent vaccine 10/08/11 Given tetanus/diphtheria/pertussis, acel(Tdap) 09/08/11 Given tetanus/diphtheria/pertussis, acel(Tdap) 12/17/06 Recorded influ virus vac, H1N1, inactive(oldterm) 10 05/08/11 Given hepatitis B adult vaccine 06/14/02 Recorded 1Result Comment: [id number] 2Result Comment: [id number] 3Result Comment: [id number] 4Result Comment: [id number] 5Result Comment: [07/08/2017] 56816-524-96 6Admin Note: [facility] 7Admin Note: [facility] [...] Maintenance, 04/28/22 13:11:00 EDT, [facility], 17, INHALE 2 PUFFS BY MOUTH EVERY FOUR HOURS NEEDED FOR WHEEZING... Start Date: 04/28/22 Status: Ordered cloNIDine 0.1 mg oral tablet See Instructions, TAKE 1 TABLET BY MOUTH TWICE A DAY NEEDED FOR FOR ANXIETY (VIAL), # 60 tablet,Refills 1, Maintenance, 04/28/22 13:11:00 EDT, Instructions Replace Required Details, Route to Pharmacy Electronically, [facility], 159, cm, 06... Start Date: 04/28/22 Status: Ordered colchicine 0.6 mg oral tablet 0.6 mg, 1, tablet, By Mouth, Daily, # 30 tablet, Refills 11, Tot. Refills 11, Maintenance, 227:00:00 EDT, Route to Pharmacy Electronically, [facility], Partial fill upon patient request if the prescription is for a schedule II opioid dr... Start Date: 10/30/21 Status: Ordered digoxin 0.125 mg oral tablet 1, tablet, By Mouth, Daily, # 90 tablet, Refills 0, Maintenance, 05/29/22 6:33:00 EDT, Route to Pharmacy Electronically, [facility], 159, cm, 05/05/22 11:32:00 EDT, Height, 98.8, kg, 229:12:00 EDT, Dry Weight Start Date: 05/29/22 Status: Ordered docusate sodium 100 mg oral capsule 100 mg, 1, capsule, By Mouth, 2 times a day, hold for loose stool, # 60 capsule, Refills 0, Tot. Refills 0, Maintenance, 01/11/22 7:25:00 EDT, Route to Pharmacy Electronically, [facility], Partial fill upon patient request if the prescri... Start Date: 01/11/22 Stop Date: 02/10/22 Status: Ordered duloxetine 20 mg oral enteric coated capsule 2 capsule = 40 mg, By Mouth, Daily at bedtime, # 60 capsule, 11 Refills, Maintenance, 06/25/21 12:00:00 EST, Capsule, [facility], Partial fill upon patient [...] Replace Required Details, Route to Pharmacy Electronically, [facility], 165, cm, 06/25/21 11:35:00 EST, Height, 127, kg, 07/10/20 14:39:00 EDT, Dry Weight Start Date: 08/05/21 Status: Ordered metoprolol tartrate 75 mg oral tablet 1 tablet = 75 mg, By Mouth, 2 times a day, 0 Refills, Maintenance, 07/04/22 10:22:00 EST, Partial fill upon patient request if the prescription is for a schedule II opioid drug. Start Date: 07/04/22 Status: Ordered penicillin V potassium 250 mg oral tablet 1 tablet, By Mouth, 2 times a day, CELLULITIS PROPHYLAXIS., # 60 tablet, 5 Refills, Maintenance, 05/29/22 6:19:00 EDT, [facility], 159, cm, 05/05/22 11:32:00 EDT, Height, 98.8, kg, 01/10/22 9:12:00 EDT, Dry Weight Start Date: 05/29/22 Status: Ordered rOPINIRole 0.5 mg oral tablet 1 tablet, By Mouth, 3 times a day, # 90 tablet, 5 Refills, 03/07/22 6:14:00 EDT, [facility], 159, cm, 01/11/22 15:15:00 EDT, Height, 98.8, kg, 01/10/22 9:12:00 EDT, Dry Weight Start Date: 03/07/22 Status: Ordered rosuvastatin 10 mg oral tablet See Instructions, TAKE 1 TABLET BY MOUTH DAILY, # 90 tablet, 1 Refills, Maintenance, 04/04/22 11:35:00 EDT, [facility], 159, cm, 01/11/22 15:15:00 EDT, Height, 98.8, kg, 01/10/22 9:12:00 EDT,Dry Weight Start Date: 04/04/22 Status: Ordered Symbicort 80mcg/4.5mcg Inhaler See Instructions, INHALE 2 PUFFS BY MOUTH TWICE A DAY RINSE MOUTH AND THROAT AFTER USE, # 10.2 Gm, Refills 5, Instructions Replace Required Details, Route to Pharmacy Electronically, ORPDP_[id number], [facility], 159, cm, 01/11/22 15:15:00 EDT... Start Date: 02/13/22 Status: Ordered warfarin 2.5 mg oral tablet See Instructions, TAKE DIRECTED BY DOCTOR PER INR RESULT WEEKLY (VIAL), # 30 tablet, 6 Refills, Maintenance, 07/09/22 14:29:00 EST, [facility], 159, cm, 07/04/22 10:18:00 EST, Height, 98.8, kg, 01/10/22 9:12:00 EDT, Dry Weight Start Date: 07/09/22 Status: Ordered Problem List Condition Confirmation Course [...] Confirmed Active Gastric banding status Confirmed Active correction current use of opiate analgesic Confirmed Active [...] Team Personnel Name: Sandra Wills NP Position: [facility] Associate Professional Member Role: Primary Care Nurse Address: Address: [address] [place] [address] [place] [address]- Name: Marley Alejo RN Position: [facility] RN Member Role: Primary Care Nurse Name: Eulogio Nickerson MD Position: [facility] Primary Care Physician Member Role: PCP Address: Address: [address] [place] [address], [place] [address]- [place] Name: Alma Delia Fonseca PharmD Position: [facility] Associate Professional Member Role: Lifetime Consulting Provider Address: Address: [address] [place] [address] [place] [address]- Name: Yolis Mattson RN Position: S RN Member Role: Primary Care Nurse Name: Priscila Garzon RN Position: [facility] RN Member Role: Primary Care Nurse Care Team Related Persons Name: FAUZIA JANSEN Address: home [address] [place] [address] Name: AURELIA SHETH Address: [address] [place] [address] Name: BRE OSORIO Address: home [address] [place] [address]
--- OUTSIDE RECORDS SUMMARY | 2024-01-02 21:19 | XMS_ITS | Continuity of Care Document ---
Author Organization [facility] Address [address] [place] [address]- Care Team Providers Care Cytology Teacher Name Role Phone Krishan GRIDER, Eulogio Molina Primary Care Physician Encounter [facility] [place] Date(s): 12/16/21 - 01/15/22 [facility] [address] [place] [address]- Allergies, Adverse Reactions, Alerts Substance Reaction Severity Status Adhesive Bandage Active Dust copd exac/sinus congestion A ctive Immunizations Given and Recorded Vaccine Date Status Refusal Reason SARS-CoV-2 mRNA (hdrfxqw-fihb-elvrg) vax 08/30/21 Recorded influenza virus vaccine, inactivated [...] B adult vaccine 06/14/02 Recorded 1Result Comment: [id number] 2Result Comment: [id number] 3Result Comment: [id number] 4Result Comment: [07/08/2017] [id number] 5Admin Note: [facility] 6Admin Note: [facility] [...] 8.5 Gm, 5 Refills, 05/29/21 17:13:00 EDT, [id number], 17, INHALE 2 PUFFS BY MOUTH EVERY [...] 0 Refills, Maintenance, 01/11/22 7:25:00 EDT, Capsule, [facility], Partial fill upon patient request if the prescription is for a schedule II opioid drug., 159, cm, 01/11/22 6:35:0... Start Date: 01/11/22 Stop Date: 02/10/22 Status: Ordered cloNIDine 0.1 mg oral tablet See Instructions, TAKE 1 TABLET BY MOUTH TWICE A DAY NEEDED FOR FOR ANXIETY, # 60 tablet, Refills 0, Instructions Replace Required Details, Route to Pharmacy Electronically, [facility], 165, cm, 01/06/22 14:35:00 EDT, Height, 102.1, kg, ... Start Date: 01/09/22 Status: Ordered colchicine 0.6 mg oral tablet 0.6 mg, 1, tablet, By Mouth, Daily, # 30 tablet, Refills 11, Tot. Refills 11, Maintenance, :00:00 EDT, Route to Pharmacy Electronically, [facility], Partial fill [...] 01/11/22 7:25:00 EDT, Route to Pharmacy Electronically, [facility], Partial fill upon patient request if the prescri... Start Date: 01/11/22 Stop Date: 02/10/22 Status: Ordered duloxetine 20 mg oral enteric coated capsule 2 capsule = 40 mg, By Mouth, Daily at bedtime, # 60 capsule, 11 Refills, Maintenance, 06/25/21 12:00:00 EST, Capsule, [facility], Partial fill [...] 01/18/22 7:26:00 EDT, 01/11/22 7:26:00 EDT, [facility], Partial fill upon patient request... [...] 01/16/22 7:27:00 EDT, 01/11/22 7:26:00 EDT, Tablet, [facility], Partial fill upon patient request if the prescription... Start Date: 01/11/22 Stop Date: 01/16/22 Status: Ordered loratadine 10 mg oral tablet See Instructions, TAKE 1 TABLET BY MOUTH ONCE A DAY, # 90 tablet, Refills 1, Instructions Replace Required Details, Route to Pharmacy Electronically, [facility], 165, cm, [...] 12/11/21 13:41:00 EDT, [facility] Electronically, [facility], Partial fill upon patient requestif [...] 03/05/22 16:36:00 EDT, 12/03/21 16:35:00 EDT, Gum, [facility][id number], Partial fill uponpatient request if the prescription [...] CELLULITIS PROPHYLAXIS., # 60 tablet, 6 Refills, [facility], 165, cm, 11/08/21 10:02:00 EDT, Height, 127, kg, 02/03/20 14:39:00 EDT, Dry Weight Start Date: 11/15/21 Status: Ordered rOPINIRole 0.5 mg oral tablet 1 tablet, By Mouth, 3 times a day, # 90 tablet, 5 Refills, 11/08/21 9:01:00 EDT, [facility], 165, cm, 11/04/21 8:42:00 EDT, Height, 127, kg, 02/03/20 14:39:00 EDT, Dry Weight Start Date: 11/08/21 Status: Ordered rosuvastatin 10 mg oral tablet See Instructions, TAKE 1 TABLET BY MOUTH DAILY, # 90 tablet, 1 Refills, Maintenance, 10/18/21 21:30:00 EDT, [facility], 165, cm, 09/04/21 14:01:00 EST, Height, [...] 01/18/22 7:28:00 EDT, 01/11/22 7:28:00 EDT, Tablet, [facility], Partial fill upon patient request if the prescription is... Start Date: 01/11/22 Stop Date: 01/18/22 Status: Ordered warfarin 1 mg oral tablet See Instructions, Take 1-10 tablets By Mouth Daily as directed by THOM, # 150 tablet, 0 Refills, Maintenance, 01/11/22 7:24:00 EDT, Tablet, [facility], Partial fill upon [...]
--- OUTSIDE RECORDS SUMMARY | 2024-01-02 21:19 | XMS_ITS | Continuity of Care Document ---
Author Organization [facility] Address [address] [place] [address]- Care Team Providers Care Vending Machine Assembler Name Role Phone Eulogio Nickerson MD Primary Care Physician [phone] [place] [facility] [place]12[place]21 - 01/11/22 [facility] [address] [place] [address]- Allergies, Adverse Reactions, Alerts Substance Reaction Severity Status Adhesive Bandage Active Dust copd exac/sinus congestion A ctive Immunizations Given and Recorded Vaccine Date Status Refusal Reason SARS-CoV-2 mRNA (upyxfkf-[id number]-qiruw) vax 08/30/21 Recorded influenza virus vaccine, inactivated [...] BNT-162b2 vac 12/02/20 Recorded Fluvirin (oldterm) 7 8/27/15 Given Fluzone Preservative-Free (oldterm) 8 03/12/12 Giv en pneumococcal 23-valent vaccine 10/08/11 Given tetanus/diphtheria/pertussis, acel(Tdap) 09/08/11 Given tetanus/diphtheria/pertussis, acel(Tdap) 12/17/06 Recorded influ virus vac, H1N1, inactive(oldterm) 9 05/08/11 Given hepatitis B adult vaccine 06/14/02 Recorded 1Result Comment: [id number] 2Result Comment: [id number] 3Result Comment: [id number] 4Result Comment: [07/08/2017] 61036-104-81 5Admin Note: [facility] 6Admin Note: [facility] [...] 8.5 Gm, 5 Refills, 05/29/21 17:13:00 EDT, [facility] #[id number], 17, INHALE 2 PUFFS BY MOUTH EVERY [...] 0 Refills, Maintenance, 01/11/22 7:25:00 EDT, Capsule, [facility], Partial fill upon [...] Required Details, Route to Pharmacy Electronically, [facility], 165, cm, 01/06/22 14:35:00 EDT, Height, 102.1, kg, ... Start Date: 01/09/22 Status: Ordered colchicine 0.6 mg oral tablet 0.6 mg, 1, tablet, By Mouth, Daily, # 30 tablet, Refills 11, Tot. Refills 11, Maintenance, :00:00 EDT, Route to Pharmacy Electronically, [facility], Partial fill upon patient request [...] 01/11/22 7:25:00 EDT, Route to Pharmacy Electronically, [facility], Partial fill upon patient request if the prescri... Start Date: 01/11/22 Stop Date: 02/10/22 Status: Ordered duloxetine 20 mg oral enteric coated capsule 2 capsule = 40 mg, By Mouth, Daily at bedtime, # 60 capsule, 11 Refills, Maintenance, 06/25/21 12:00:00 EST, Capsule, [facility], Partial fill upon patient request [...] 01/18/22 7:26:00 EDT, 01/11/22 7:26:00 EDT, Injection, [facility], Partial fill upon patient request... [...] 01/16/22 7:27:00 EDT, 01/11/22 7:26:00 EDT, Tablet, [facility], Partial fill upon patient request if the prescription... Start Date: 01/11/22 Stop Date: 01/16/22 Status: Ordered loratadine 10 mg oral tablet See Instructions, TAKE 1 TABLET BY MOUTH ONCE A DAY, # 90 tablet, Refills 1, Instructions Replace Required Details, Route to Pharmacy Electronically, [facility], 165, cm, 06/25/21 11:35:00 EST, [...] 12/11/21 13:41:00 EDT, [facility], Partial fill upon patient requestif [...] 03/05/22 16:36:00 EDT, 12/03/21 16:35:00 EDT, Gum, [facility] #[id number], Partial fill uponpatient request if the prescription [...] PROPHYLAXIS., # 60 tablet, 6 Refills, [facility], 165, cm, 11/08/21 10:02:00 EDT, Height, 127, kg, 02/03/20 14:39:00 EDT, Dry Weight Start Date: 11/15/21 Status: Ordered rOPINIRole 0.5 mg oral tablet 1 tablet, By Mouth, 3 times a day, # 90 tablet, 5 Refills, 11/08/21 9:01:00 EDT, [facility], 165, cm, 11/04/21 8:42:00 EDT, Height, 127, kg, 02/03/20 14:39:00 EDT, Dry Weight Start Date: 11/08/21 Status: Ordered rosuvastatin 10 mg oral tablet See Instructions, TAKE 1 TABLET BY MOUTH DAILY, # 90 tablet, 1 Refills, Maintenance, 10/18/21 21:30:00 EDT, [facility], 165, cm, 09/04/21 14:01:00 EST, [...] 01/18/22 7:28:00 EDT, 01/11/22 7:28:00 EDT, Tablet, [facility], Partial fill upon patient request if the prescription is... Start Date: 01/11/22 Stop Date: 01/18/22 Status: Ordered warfarin 1 mg oral tablet See Instructions, Take 1-10 tablets By Mouth Daily as directed by THOM, # 150 tablet, 0 Refills, Maintenance, 01/11/22 7:24:00 EDT, Tablet, [facility], Partial fill [...]
--- OUTSIDE RECORDS SUMMARY | 2024-01-02 21:19 | XMS_ITS | Continuity of Care Document ---
Author Organization [facility] Buck Nolberto Address [address] [place] [address]- Care Team Providers Care Sterilization Specialist Name Role Phone Radha GRIDER, Fuentes Kenny Primary Care Physician [phone] Encounter [facility] Date(s): 10/29/20 - 11/28/20 [facility] [address] [place] [address]- Allergies, Adverse Reactions, Alerts Substance Reaction Severity [...] H1N1, inactive(oldterm) 8 05/08/11 Given 1Result Comment: [id number] 2Result Comment: [id number] 3Result Comment: [07/08/2017] [id number] 4Admin Note: [facility] 5Admin Note: [facility] - 6Admin Note: Given at [facility] 7Admin Note: 8 GIVEN AT [facility] 8Admin Note: rcvd [...] 11 Refills, Maintenance, 10/31/20 14:14:00 EDT, Cream, [facility] #[id number], Partial fill upon patient request if the [...] 11/27/20 10:09:00 EDT, Route to Pharmacy Electronically, [facility] #[id number], please schedule appt for further refills, 165, cm, 11/19/20 11:32:00 EDT, Hei... Start Date: 11/27/20 Status: Ordered Claritin 10 mg oral tablet 10 mg, 1, tablet, By Mouth, Daily, for 90 days, # 90 tablet, Refills 3, Tot. Refills 3, Acute 07/28/21 15:22:00 EST, 08/02/20 15:22:00 EST, Route to Pharmacy Electronically, [facility] #[id number], 165, cm, 07/31/20 14:32:00 EST, Height, 127, [...] PMR, history of smoking fax to : [phone], 04... Start Date: 10/26/20 Status: Ordered Disposable [...] Gm, 3 Refills, Maintenance, 06/22/20 14:58:00 EST, [facility] #[id number], 165, cm, 06/07/20 13:52:00 EST, Height, 127, [...] mL, 5 Refills, Maintenance, 10/01/18 10:08:42 EST, [place], 2 sprays Nares, Both 2 times a [...] 08/02/20 16:13:00 EST, Route to Pharmacy Electronically, [facility] #[id number], D/C RX ON FILE FOR CLARITAN, 165, [...] tablet, 1 Refills, Maintenance, 07/12/20 13:56:00 EST, [facility] #[id number], Partial fill upon patient request if the prescription is for a schedule II opioid drug., 165, cm, 07/11/20 15:24:00 EST,... Start Date: 07/12/20 Stop Date: 07/05/21 Status: Ordered metoprolol 25 mg oral tablet 25 mg, 1, tablet, By Mouth, 2 times a day, # 60 tablet, Refills 5, Tot. Refills 5, Maintenance, 09/22/20 13:59:00 EST, Route to Pharmacy Electronically, [facility] #[id number], 165, cm, 07/31/2113:32:00 EST, Height, 127, kg, 02/03/20 14:39:00 ED... Start Date: 09/22/20 Status: Ordered Mitigare 0.6 mg oral capsule 1 capsule = 0.6 mg, By Mouth, Daily, # 30 capsule, 11 Refills, Maintenance, 10/31/20 14:29:00 EDT, [facility] #[id number], D/C RX ON FILE FOR COLCHICINE NOT [...] 0 Refills, Maintenance, 06/18/20 16:57:00 EST, Patch, [facility] #[id number], Partial fill upon patient request, 165, cm, 06/07/20 13:52:00 EST, Height, 127, kg, 02/03/20 14:39:00 EDT, Dry Weight Start Date: 06/18/20 Stop Date: 07/30/20 Status: Ordered NuLYTELY with Flavor Packs oral powder for reconstitution See Instructions, Drink 240mL every 15-20 minutes until first half is gone. Repeat 6 hours prior toprocedure., # 4,000 mL, 0 Refills, Maintenance, 06/28/20 17:09:00 EST, [facility] #[id number],Partial fill upon patient request if the prescript... Start Date: 06/28/20 Status: Ordered oxyCODONE 10 mg oral tablet 1 tablet = 10 mg, By Mouth, Every 8 hours, DX Z79.891 G89.29 M47.816 OK TO FILL LESS THAN PRESCRIBED AMOUNT, # 84 tablet, 0 Refills, Maintenance, 11/05/20 17:14:00 EDT, Tablet, [facility] #[id number], 11/06/20, 165, cm, 10/19/20 8:59:00 EDT, Hei... Start Date: 11/05/20 Stop Date: 12/03/20 Status: Ordered penicillin V potassium 250 mg oral tablet 1 tablet = 250 mg, By Mouth, 2 times a day, Cellulitis prophylaxis, # 60 tablet, 11 Refills, Maintenance, 10/30/20 12:09:00 EDT, [facility] #[id number], 165, cm, 10/19/20 8:59:00 EDT, Height, 127, kg, 02/03/20 14:39:00 EDT, Dry Weight Start Date: 10/30/20 Status: Ordered predniSONE 10 mg oral tablet 1 tablet = 10 mg, By Mouth, Daily, # 30 tablet, 5 Refills, Maintenance, 11/19/20 11:50:00 EDT, Tablet, [facility] #[id number], Partial fill upon patient request if the [...] 5 Refills, Maintenance, 04/30/20 15:13:00 EDT, Tablet, [facility] #[id number], 165, cm, 04/30/20 14:30:00 EDT, Height, 127, kg, 02/03/20 14:39:00 EDT, Dry Weight Start Date: 04/30/20 Status: Ordered rosuvastatin 10 mg oral tablet 1 tablet = 10 mg, By Mouth, Daily, # 90 tablet, 3 Refills, Maintenance, 05/03/20 16:35:00 EDT, Tablet, [facility] #[id number], d/c rx for capsules, 165, cm, 04/30/20 14:30:00 EDT, Height, 127, kg, 02/03/20 14:39:00 EDT, Dry Weight Start Date: 05/03/20 Status: Ordered Ventolin HFA 108 mcg/inh inhalation aerosol with adapter 2 puffs, Inhalation, Every 4 hours, PRN Wheezing/Shortness of Breath, # 1 each, 5 Refills, Soft Stop, 11/08/20 8:46:00 EDT, [facility] #[id number], 165, cm, 10/19/20 8:59:00 EDT, Height, 127, kg, 02/03/20 14:39:00 EDT, Dry Weight Start Date: 11/08/20 Status: Ordered warfarin 5 mg oral tablet 1 tablet = 5 mg, By Mouth, Daily, dosing subject to change pending inr lab values, # 30 tablet, 11 Refills, Maintenance, 08/31/20 15:36:00 EST, Tablet, [facility] #[id number], 165, cm, 07/31/20 14:32:00 EST, Height, 127, [...] long-term use(Confirmed) Active Gastric banding status(Confirmed) Active USP current use of 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
--- OUTSIDE RECORDS SUMMARY | 2024-01-02 21:19 | XMS_ITS | Continuity of Care Document ---
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 Role Phone Kyle Ahumada DO Primary Care Physician Encounter [facility] [place] Date(s): 10/15/23 - 11/14/23 [facility] [address] [place] [address]- Allergies, Adverse Reactions, Alerts Substance Reaction Severity [...] vaccine, inactivated 05/10/07 Jarrett rded SARS-CoV-2 mRNA (nsqszex-dzzw-lpema) vax 08/30/21 Recorded SARS-CoV-2 (COVID-19) mRNA BNT-162b2 vac 01/02/21 Recorded SARS-CoV-2 (COVID-19) mRNA BNT-162b2 vac 12/02/20 Recorded Fluvirin (oldterm) 10 03/22/15 Given Fluzone Preservative-Free (oldterm) 11 03/12/12 Gi octavio pneumococcal 23-valent vaccine 10/08/11 Given tetanus/diphtheria/pertussis, acel(Tdap) 09/08/11 Given tetanus/diphtheria/pertussis, acel(Tdap) 12/17/06 Recorded influ virus vac, H1N1, inactive(oldterm) 12 05/08/11 Given hepatitis B adult vaccine 06/14/02 Recorded 1Result Comment: PCV 20 [facility]#[id number] 2Result Comment: Flu [facility]#[id number] 3Result Comment: [id number] 4Result Comment: [id number] 5Result Comment: [id number] 6Result Comment: [id number] 7Result Comment: [07/08/2017] [id number] 8Admin Note: [facility] 9Admin Note: [facility] 9-13 10Admin Note: Given at [facility] 11Admin Note: 03-11-12 GIVEN AT [facility] 12Admin Note: rcvd elsewhere Medications acetaminophen 325 mg oral tablet 2, tablet, By Mouth, Every 6 hours, PRN, # 100 tablet, Refills 5, Maintenance, NEEDED FOR MODERATE PAIN (VIAL), 09/14/23 15:41:00 EST, Route to Pharmacy Electronically, [facility], 160, cm, 07/07/23 15:02:00 EST, Height, 112.4, kg, 06/24/23... Start Date: 09/14/23 Status: Ordered Albuterol (Eqv-ProAir HFA) 90 mcg/inh inhalation aerosol 2 puffs, Inhalation, Every 4 hours, PRN NEEDED FOR WHEEZING OR FOR SHORTNESS OF BREATH (BULK), #8.5 Gm, 5 Refills, Maintenance, 07/25/23 11:45:00 EST, [facility], 17, INHALE 2 PUFFS BY MOUTH [...] 10/07/23 15:53:00 EDT, Route to Pharmacy Electronically, [facility], 160, cm, 07/07/2315:02:00 EST, Height, 112.4, kg, 06/24/23 17:38:00... Start Date: 10/07/23 Status: Ordered docusate sodium 100 mg oral capsule 100 mg, 1, capsule, By Mouth, 2 times a day, hold for loose stool, # 180 capsule, Refills 3, Tot. Refills 3, Maintenance, 03/13/23 16:56:00 EDT, Route to Pharmacy Electronically, [facility], Partial fill upon patient request if the prescriptio... Start Date: 03/13/23 Stop Date: 04/12/23 Status: Ordered duloxetine 20 mg oral enteric coated capsule 2 capsule = 40 mg, By Mouth, Daily at bedtime, # 60 capsule, 11 Refills, Maintenance, 06/25/21 12:00:00 EST, [facility], Partial fill upon patient request [...] Replace Required Details, Route to Pharmacy Electronically, [facility], 160, cm, 07/07/23 15:02:00 EST, Height,... Start Date: 07/28/23 Status: Ordered furosemide 40 mg oral tablet 40 mg, 1, tablet, By Mouth, Daily, # 90 tablet, Refills 1, Tot. Refills 1, Maintenance, 03/02/23 18:12:00 EDT, Route to Pharmacy Electronically, [facility], Partial fill upon patient request if [...] mL, 11 Refills, Maintenance, 08/11/23 7:46:00 EST, [facility], 30, INSTILL 2 SPRAYS IN [...] 07/01/23 14:32:00 EST, Route to Pharmacy Electronically, [facility], 160, cm, 06/26/23 11:21:00 EST, Height, 112.4, kg, 06/24/23 17:38:00 EST, Dry Weight Start Date: 07/01/23 Status: Ordered metFORMIN 500 mg oral tablet 1 tablet = 500 mg, By Mouth, 2 times a day, # 60 tablet, 5 Refills, Maintenance, 07/07/23 15:26:00 EST, Tablet, [facility], Partial fill upon patient request if the prescription is for a schedule II opioid drug., 160, cm, 07/07/23 15:02:00 EST... Start Date: 07/07/23 Stop Date: 01/03/24 Status: Ordered nicotine 21 mg/24 hr transdermal film, extended release 1 patch, Topically, Daily, # 28 patch, 3 Refills, Maintenance, 09/14/23 15:41:00 EST, [facility], 28, APPLY 1 PATCH TOPICALLY [...] kg, 06/24/... Start Date: 07/30/23 Status: Ordered ONETOUCH DELICA [...] tablet, 5 Refills, Maintenance, 08/19/23 10:06:00 EST, [facility], 160, cm, 07/07/23 15:02:00 EST, Height, 112.4, kg, 06/24/23 17:38:00 EST,Dry Weight Start Date: 08/19/23 Status: Ordered Rhinocort Allergy 32 mcg/inh nasal spray 2 sprays = 64 mcg, Nares, Both, Daily, # 8.43 mL, 5 Refills, Maintenance, 11/12/23 13:55:00 EDT, [place], [facility], Partial fill upon patient request if the prescription is for a schedule II opioid drug., 160, cm, 11/12/23 13:36:00 EDT, Height... Start Date: 11/12/23 Status: Ordered rOPINIRole 0.5 mg oral tablet 1 tablet, By Mouth, 3 times a day, ^1R1,1R3,1R4., # 90 tablet, 5 Refills, Maintenance, 10/11/23 20:09:00 EDT, [facility], 160, cm, 07/07/23 15:02:00 EST, Height, 112.4, kg, 06/24/23 17:38:00 EST, Dry Weight Start Date: 10/11/23 Status: Ordered rosuvastatin 10 mg oral tablet 1 tablet, By Mouth, Daily, ^1R1., # 30 tablet, 5 Refills, Maintenance, 07/01/23 14:33:00 EST, [facility], 160, cm, 06/26/23 11:21:00 EST, Height, 112.4, kg, 06/24/23 17:38:00 EST, Dry Weight Start Date: 07/01/23 Status: Ordered Symbicort 160mcg/4.5mcg Inhaler 2, puffs, Inhalation, 2 times a day, # 10.2 Gm, Refills 11, Tot. Refills 11, Maintenance, 06/03/23 11:47:00 EST, Aerosol, Route to Pharmacy Electronically, [id number], [facility], 160, cm, 06/03/23 11:30:00 EST, Height, 98.8, kg, ... Start Date: 06/03/23 Status: Ordered tiZANidine 4 mg oral capsule 1 capsule = 4 mg, By Mouth, 3 times a day, PRN Spasm, can increae to 2 at a time if needed, # 90 capsule, 2 Refills, Maintenance, 11/12/23 14:03:00 EDT, Capsule, [facility], Partial fill uponpatient request if the [...] 30 tablet, 5 Refills, Maintenance, 10/26/23 10:04:00 EDT,[facility], 160, cm, 10/16/23 10:41:00 EDT, Height, [...] Confirmed Active Gastric banding status Confirmed Active residential current use of opiate analgesic Confirmed Active [...] Team Personnel Name: Sandra Wills NP Position: [facility] PCO Associate Professional Member Role: Primary Care Nurse Address: Address: [address] [place] [address] [place] [address]- [place] Name: Marley Alejo RN Position: S RN Member Role: Primary Care Nurse Name: Rashi Dewitt RN Position: [facility] RN Member Role: Primary Care Nurse Name: Alma Delia Fonseca PharmD Position: [facility] Associate Professional Member Role: Lifetime Consulting Provider Address: Address: [address] [facility] [place] [address]- [place] Name: Priscila Garzon RN Position: [facility] RN Member Role: Primary Care Nurse Name: Kyle Ahumada DO Position: [facility] Physician - Primary Care Member Role: PCP Address: Address: [address] [place] [address] [place] [address]- [place] Name: Renea Mart RN Position: [facility] RN Member Role: Primary Care Nurse Care Team Related Persons Name: FAUZIA JANSEN Address: home [address] [place] [address] Name: AURELIA SHETH Address: [address] [place] [address] Name: BRE OSORIO Address: [address] [place] [address]
--- OUTSIDE RECORDS SUMMARY | 2024-01-02 21:19 | XMS_ITS | Continuity of Care Document ---
Author Organization [facility] Buck Nolberto Address [address] [place] [address]- Care Team Providers Care Midwife Name Role Phone Radha GRIDER, Fuentes Kenny Primary Care Physician Encounter [facility] Date(s): 11/01/20 - 12/01/20 [facility] [address] [place] [address]- Allergies, Adverse Reactions, Alerts Substance Reaction Severity [...] H1N1, inactive(oldterm) 8 05/08/11 Given 1Result Comment: [id number] 2Result Comment: [id number] 3Result Comment: [07/08/2017] [id number] 4Admin Note: [facility] 5Admin Note: [facility] [...] 11 Refills, Maintenance, 10/31/20 14:14:00 EDT, Cream, [facility] #[id number], Partial fill upon patient request if the [...] 11/27/20 10:09:00 EDT, Route to Pharmacy Electronically, [facility] #[id number], please schedule appt for further refills, 165, cm, 11/19/20 11:32:00 EDT, Hei... Start Date: 11/27/20 Status: Ordered Claritin 10 mg oral tablet 10 mg, 1, tablet, By Mouth, Daily, for 90 days, # 90 tablet, Refills 3, Tot. Refills 3, Acute 07/28/21 15:22:00 EST, 08/02/20 15:22:00 EST, Route to Pharmacy Electronically, [facility] #[id number], 165, cm, 07/31/20 14:32:00 EST, Height, 127, [...] PMR, history of smoking fax to : [phone], 04... Start Date: 10/26/20 Status: Ordered Disposable [...] Gm, 3 Refills, Maintenance, 06/22/20 14:58:00 EST, [facility] #[id number], 165, cm, 06/07/20 13:52:00 EST, Height, 127, [...] mL, 5 Refills, Maintenance, 10/01/18 10:08:42 EST, [place], 2 sprays Nares, Both 2 times [...] 08/02/20 16:13:00 EST, Route to Pharmacy Electronically, [facility] #[id number], D/C RX ON FILE FOR CLARITAN, 165, [...] tablet, 1 Refills, Maintenance, 07/12/20 13:56:00 EST, [facility] #[id number], Partial fill upon patient request if the prescription is for a schedule II opioid drug., 165, cm, 07/11/20 15:24:00 EST,... Start Date: 07/12/20 Stop Date: 07/05/21 Status: Ordered metoprolol 25 mg oral tablet 25 mg, 1, tablet, By Mouth, 2 times a day, # 60 tablet, Refills 5, Tot. Refills 5, Maintenance, 09/22/20 13:59:00 EST, Route to Pharmacy Electronically, [facility] #[id number], 165, cm, 07/31/2113:32:00 EST, Height, 127, kg, 02/03/20 14:39:00 ED... Start Date: 09/22/20 Status: Ordered Mitigare 0.6 mg oral capsule 1 capsule = 0.6 mg, By Mouth, Daily, # 30 capsule, 11 Refills, Maintenance, 10/31/20 14:29:00 EDT, [facility] #[id number], D/C RX ON FILE FOR COLCHICINE NOT [...] 0 Refills, Maintenance, 06/18/20 16:57:00 EST, Patch, [facility] #[id number], Partial fill upon patient request, 165, cm, 06/07/20 13:52:00 EST, Height, 127, kg, 02/03/20 14:39:00 EDT, Dry Weight Start Date: 06/18/20 Stop Date: 07/30/20 Status: Ordered NuLYTELY with Flavor Packs oral powder for reconstitution See Instructions, Drink 240mL every 15-20 minutes until first half is gone. Repeat 6 hours prior toprocedure., # 4,000 mL, 0 Refills, Maintenance, 06/28/20 17:09:00 EST, [facility] #[id number],Partial fill upon patient request if the prescript... Start Date: 06/28/20 Status: Ordered oxyCODONE 10 mg oral tablet 1 tablet = 10 mg, By Mouth, Every 8 hours, DX Z79.891 G89.29 M47.816 OK TO FILL LESS THAN PRESCRIBED AMOUNT, # 84 tablet, 0 Refills, Maintenance, 11/05/20 17:14:00 EDT, Tablet, [facility] #[id number], 11/06/20, 165, cm, 10/19/20 8:59:00 EDT, Hei... Start Date: 11/05/20 Stop Date: 12/03/20 Status: Ordered penicillin V potassium 250 mg oral tablet 1 tablet = 250 mg, By Mouth, 2 times a day, Cellulitis prophylaxis, # 60 tablet, 11 Refills, Maintenance, 10/30/20 12:09:00 EDT, [facility] #[id number], 165, cm, 10/19/20 8:59:00 EDT, Height, 127, kg, 02/03/20 14:39:00 EDT, Dry Weight Start Date: 10/30/20 Status: Ordered predniSONE 10 mg oral tablet 1 tablet = 10 mg, By Mouth, Daily, # 30 tablet, 5 Refills, Maintenance, 11/19/20 11:50:00 EDT, Tablet, [facility] #[id number], Partial fill upon patient request if the [...] cm, 09/21/19 12:01:00 EST, Height, 116.4, kg, 10... Start Date: 11/18/19 Status: Ordered risperiDONE 1 mg oral tablet take 1 tablet by mouth twice a day Start Date: 05/23/19 Status: Ordered rOPINIRole 0.5 mg oral tablet 1 tablet = 0.5 mg, By Mouth, 3 times a day, # 90 tablet, 5 Refills, Maintenance, 04/30/20 15:13:00 EDT, Tablet, [facility] #[id number], 165, cm, 04/30/20 14:30:00 EDT, Height, 127, kg, 02/03/20 14:39:00 EDT, Dry Weight Start Date: 04/30/20 Status: Ordered rosuvastatin 10 mg oral tablet 1 tablet = 10 mg, By Mouth, Daily, # 90 tablet, 3 Refills, Maintenance, 05/03/20 16:35:00 EDT, Tablet, [facility] #[id number], d/c rx for capsules, 165, cm, 04/30/20 14:30:00 EDT, Height, 127, kg, 02/03/20 14:39:00 EDT, Dry Weight Start Date: 05/03/20 Status: Ordered Ventolin HFA 108 mcg/inh inhalation aerosol with adapter 2 puffs, Inhalation, Every 4 hours, PRN Wheezing/Shortness of Breath, # 1 each, 5 Refills, Soft Stop, 11/08/20 8:46:00 EDT, [facility] #[id number], 165, cm, 10/19/20 8:59:00 EDT, Height, 127, kg, 02/03/20 14:39:00 EDT, Dry Weight Start Date: 11/08/20 Status: Ordered warfarin 5 mg oral tablet 1 tablet = 5 mg, By Mouth, Daily, dosing subject to change pending inr lab values, # 30 tablet, 11 Refills, Maintenance, 08/31/20 15:36:00 EST, Tablet, [facility] #[id number], 165, cm, 07/31/20 14:32:00 EST, Height, 127, [...]
--- OUTSIDE RECORDS SUMMARY | 2024-01-02 21:19 | XMS_ITS | Continuity of Care Document ---
Author Organization [facility] Address [address] [place] [address] ruthann, [address] [place] [address]- Care Team Providers Care Ac/Dc Rewinder Name Role Phone Krishan GRIDER, Eulogio Molina Primary Care Physician [facility] Date[facility]s): 10/15/22 - 11/14/22 [facility] [address] [place] [address] Drive, [address] [place], [place] [address] Allergies, Adverse Reactions, Alerts Substance Reaction Severity [...] vaccine, inactivated 05/10/07 Jarrett rded SARS-CoV-2 mRNA ([id number]) vax 08/30/21 Recorded SARS-CoV-2 (COVID-19) mRNA BNT-162b2 vac 01/02/21 Recorded SARS-CoV-2 (COVID-19) mRNA BNT-162b2 vac 5/9/21 Recorded Fluvirin (oldterm) 8 03/22/15 Given Fluzone Preservative-Free (oldterm) 9 03/12/12 Giv en pneumococcal 23-valent vaccine 10/08/11 Given tetanus/diphtheria/pertussis, acel(Tdap) 09/08/11 Given tetanus/diphtheria/pertussis, acel(Tdap) 12/17/06 Recorded influ virus vac, H1N1, inactive(oldterm) 10 05/08/11 Given hepatitis B adult vaccine 06/14/02 Recorded 1Result Comment: [id number] 2Result Comment: [id number] 3Result Comment: [id number] 4Result Comment: [id number] 5Result Comment: [07/08/2017] [id number] 6Admin Note: [facility] 7Admin Note: [facility] [...] Gm, 4 Refills, Maintenance, 09/08/22 14:55:00 EST, [facility], 30, INHALE 2 PUFFS BY MOUTH EVERY FOUR HOURS NEEDED FOR WHEEZING... Start Date: 09/08/22 Status: Ordered cloNIDine 0.1 mg oral tablet 1, tablet, By Mouth, 2 times a day, PRN, # 56 tablet, Refills 2, Maintenance, NEEDED FOR FOR ANXIETY (VIAL) ^VIAL, 10/03/22 11:23:00 EST, [email or web address],cm, 09/09/22 14:31:00 EST, Height, 98.8, kg, 07/17/... Start Date: 10/03/22 Status: Ordered colchicine 0.6 mg oral tablet 1, tablet, By Mouth, Daily, ^1R1., # 30 tablet, Refills 11, Maintenance, 09/10/22 5:31:00 EST, [facility], 160, cm, 09/09/22 14:31:00 EST, Height, 98.8, kg, 07/17/22 8:58:00 EST, Dry Weight Start Date: 09/10/22 Status: Ordered docusate sodium 100 mg oral capsule 100 mg, 1, capsule, By Mouth, 2 times a day, hold for loose stool, # 60 capsule, Refills 0, Tot. Refills 0, Maintenance, 01/11/22 7:25:00 EDT, Route to Pharmacy Electronically, [facility], Partial fill upon patient request if the prescri... Start Date: 01/11/22 Stop Date: 02/10/22 Status: Ordered duloxetine 20 mg oral enteric coated capsule 2 capsule = 40 mg, By Mouth, Daily at bedtime, # 60 capsule, 11 Refills, Maintenance, 06/25/21 12:00:00 EST, [facility]ule, [facility], Partial fill upon patient request if the prescription is for a schedule II opioid drug., 165, cm, 06/25/21 11:35:... Start Date: 06/25/21 Status: Ordered duloxetine 60 mg oral enteric coated capsule 1 capsule = 60 mg, By Mouth, Daily in AM, 0 Refills, Maintenance, 07/30/18 11:21:14 EST Start Date: 07/30/18 Status: Ordered ipratropium nasal 21 mcg/inh spray 2 sprays = 42 mcg, Nares, Both, 2 times a day, # 30 mL, 5 Refills, Acute 03/16/23 6:08:00 EDT, 10/14/22 6:08:00 EDT, [place], [facility] #[id number], Partial fill upon patient request if the prescription is for a schedule II opioid drug., 2 sprays... Start Date: 10/14/22 Stop Date: 03/16/23 Status: Ordered lamotrigine 200 mg oral tablet 1 tablet = 200 mg, By Mouth, Daily at bedtime, 0 Refills, Maintenance, 07/18/22 8:57:00 EST, Tablet, Partial fill upon patient request if the prescription is for a schedule II opioid drug. Start Date: 07/18/22 Status: Ordered loratadine 10 mg oral tablet 1, tablet, By Mouth, Daily, R1., # 30 tablet, Refills 3, Maintenance, 11/06/22 6:52:00 EDT, Route to Pharmacy Electronically, [facility], 160, cm, 10/13/22 16:25:00 EDT, Height, 98.8, kg, 07/17/22 8:58:00 EST, Dry Weight Start Date: 11/06/22 Status: Ordered Maalox Plus Liquid 30 mL, [...] 5 Refills, Maintenance, 07/29/22 6:50:00 EST, Tablet, [facility], Partial fill upon patient request if the prescription is for a schedule II opioid drug., 160, cm, 07/18/22 11:39:00 EST,... Start Date: 07/29/22 Status: Ordered penicillin V potassium 250 mg oral tablet 1 tablet = 250 mg, By Mouth, 2 times a day, CELLULITIS PROPHYLAXIS, # 60 tablet, 5 Refills, Maintenance, 11/06/22 17:25:00 EDT, Tablet, [facility], Partial fill upon patient request if the prescription is for a schedule II opioid drug., 160, c... Start Date: 11/06/22 Stop Date: 05/05/23 Status: Ordered predniSONE 10 mg oral tablet 1 tablet, By Mouth, Daily, ^1R1., # 30 tablet, 2 Refills, Maintenance, 11/05/22 7:06:00 EDT, [facility], 160, cm, 10/13/22 16:25:00 EDT, Height, 98.8, kg, 07/17/22 8:58:00 EST, Dry Weight Start Date: 11/05/22 Status: Ordered rOPINIRole 0.5 mg oral tablet See Instructions, TAKE 1 TABLET BY MOUTH THREE TIMES DAILY^1R1,1R3,1R4, # 90 tablet, 5 Refills, Maintenance, 07/24/22 23:41:00 EST, [facility], 160, cm, 07/18/22 11:39:00 EST, Height, 98.8, kg, 07/17/22 8:58:00 EST, Dry Weight Start Date: 07/24/22 Status: Ordered rosuvastatin 10 mg oral tablet 1 tablet, By Mouth, Daily, ^1R1., # 30 tablet, 5 Refills, Maintenance, 09/10/22 5:31:00 EST, [facility], 160, cm, 09/09/22 14:31:00 EST, Height, 98.8, kg, 07/17/22 8:58:00 EST, Dry Weight Start Date: 09/10/22 Status: Ordered Symbicort 80mcg/4.5mcg Inhaler See Instructions, INHALE 2 PUFFS BY MOUTH TWICE A DAY RINSE MOUTH AND THROAT AFTER USE, # 10.2 Gm, Refills 5, Maintenance, 07/30/22 21:16:00 EST, Instructions Replace Required Details, [id number]... Start Date: 07/30/22 Status: Ordered warfarin 1 mg oral tablet See Instructions, Take 1-10 tabs daily as directed by NEOS., # 150 tablet, 0 Refills, Maintenance, 07/18/22 8:55:00 EST, Tablet, [facility], Partial fill upon patient request [...] Team Personnel Name: Sandra Wills NP Position: [facility] Associate Professional Member Role: Primary Care Nurse Address: Address: [address] [place] [address]- [place] Name: Marley Alejo RN Position: [facility] RN Member Role: Primary Care Nurse Name: Eulogio Nickerson MD Position: [facility] Primary Care Physician Member Role: PCP Address: Address: [address] [place] [address]- [place] Name: Alma Delia Fonseca PharmD Position: [facility] Associate Professional Member Role: Lifetime Consulting Provider Address: Address: [address] [place] [address] [place] [address]- [place] Name: Yolis Mattson RN Position: S RN Member Role: Primary Care Nurse Name: Priscila Garzon RN Position: [facility] RN Member Role: Primary Care Nurse Name: Renea Mart RN Position: [facility] RN Member Role: Primary Care Nurse Care Team Related Persons Name: FAUZIA JANSEN Address: home [address] [place] [address] Name: AURELIA SHETH Address: home [address] [place] [address] Name: BRE OSORIO Address: home [address] [place] [address]
--- OUTSIDE RECORDS SUMMARY | 2024-01-02 21:19 | XMS_ITS | Continuity of Care Document ---
Author Organization [facility] Robin Jane Nolberto Address [address] [place] [address]- Care Team Providers Care Public Works Director Name Role Phone Radha GRIDER, Fuentes Kenny Primary Care Physician [phone] [facility]s): 02/13/21 - 03/15/21 [facility] Robin Bolañosley Adult [address] [place] [address]- Allergies, Adverse Reactions, Alerts Substance Reaction Severity [...] 7 03/12/12 Giv en pneumococcal 23-valent vaccine 3/14/12 Given tetanus/diphtheria/pertussis, acel(Tdap) 09/08/11 Given tetanus/diphtheria/pertussis, acel(Tdap) 12/17/06 Recorded influ virus vac, H1N1, inactive(oldterm) 8 05/08/11 Given hepatitis B adult vaccine 06/14/02 Recorded 1Result Comment: [id number] 2Result Comment: [id number] 3Result Comment: [07/08/2017] [id number] 4Admin Note: [facility] 5Admin Note: [facility] [...] 11 Refills, Maintenance, 10/31/20 14:14:00 EDT, Cream, [facility] #[id number], Partial fill upon patient request if the [...] 02/12/21 12:56:00 EDT, Route to Pharmacy Electronically, [facility] #[id number], 165, cm, 01/11/21 14:05:00 EDT, Height, 127, [...] PMR, history of smoking fax to : [phone], 04... Start Date: 10/26/20 Status: Ordered Disposable [...] Gm, 3 Refills, Maintenance, 06/22/20 14:58:00 EST, [facility] #[id number], 165, cm, 06/07/20 13:52:00 EST, Height, 127, [...] mL, 5 Refills, Maintenance, 10/01/18 10:08:42 EST, [place], 2 sprays Nares, Both 2 times a [...] 08/02/20 16:13:00 EST, Route to Pharmacy Electronically, [facility] #[id number], D/C RX ON FILE FOR ABRAM, 165, [...] 3 Refills, Maintenance, 02/25/21 10:31:00 EDT, Tablet, [facility] #[id number], Partial fill upon patient request if the prescription is for a schedule II opioid drug., 165, cm, 01/11/21 14:... Start Date: 02/25/21 Status: Ordered methenamine hippurate 1 gm oral tablet 1 tablet = 1 Gm, By Mouth, 2 times a day, # 60 tablet, 1 Refills, Maintenance, 07/12/20 13:56:00 EST, [facility] #[id number], Partial fill upon patient request if the prescription is for a schedule II opioid drug., 165, cm, 07/11/20 15:24:00 EST,... Start Date: 07/12/20 Stop Date: 07/05/21 Status: Ordered Metoprolol Tartrate 25 mg oral tablet 1 tablet, By Mouth, 2 times a day, # 60 tablet, 2 Refills, Maintenance, 03/07/21 10:08:00 EDT, [facility] #[id number], 165, cm, 02/28/21 14:22:00 EDT, Height, 127, kg, 02/03/20 14:39:00 EDT, DryWeight Start Date: 03/07/21 Status: Ordered Mitigare 0.6 mg oral capsule 1 capsule, By Mouth, Daily, # 30 capsule, 11 Refills, Maintenance, 12/31/20 16:51:00 EDT, [facility] #[id number], 165, cm, 11/19/20 11:32:00 EDT, Height, 127, [...] 0 Refills, Maintenance, 06/18/20 16:57:00 EST, Patch, [facility] #[id number], Partial fill upon patient request, 165, cm, 06/07/20 13:52:00 EST, Height, 127, kg, 02/03/20 14:39:00 EDT, Dry Weight Start Date: 06/18/20 Stop Date: 07/30/20 Status: Ordered NuLYTELY with Flavor Packs oral powder for reconstitution See Instructions, Drink 240mL every 15-20 minutes until first half is gone. Repeat 6 hours prior toprocedure., # 4,000 mL, 0 Refills, Maintenance, 06/28/20 17:09:00 EST, [facility] #[id number],Partial fill upon patient request if the prescript... Start Date: 06/28/20 Status: Ordered oxyCODONE 10 mg oral tablet 1 tablet = 10 mg, By Mouth, Every 8 hours, DX Z79.891 G89.29 M47.816 OK TO FILL LESS THAN PRESCRIBED AMOUNT, # 84 tablet, 0 Refills, Maintenance, 02/25/21 12:52:00 EDT, Tablet, [facility] #[id number], 02/26/21, 165, cm, 01/11/21 14:05:00 EDT, He... Start Date: 02/25/21 Stop Date: 03/25/21 Status: Ordered penicillin V potassium 250 mg oral tablet 1 tablet = 250 mg, By Mouth, 2 times a day, Cellulitis prophylaxis, # 60 tablet, 11 Refills, Maintenance, 10/30/20 12:09:00 EDT, [facility] #[id number], 165, cm, 10/19/20 8:59:00 EDT, Height, 127, kg, 02/03/20 14:39:00 EDT, Dry Weight Start Date: 10/30/20 Status: Ordered predniSONE 5 mg oral tablet 1 tablet = 5 mg, By Mouth, Daily, # 30 tablet, 0 Refills, Maintenance, 01/11/21 14:20:00 EDT, Tablet, [facility] #[id number], Partial fill upon patient request if the [...] 5 Refills, Maintenance, 04/30/20 15:13:00 EDT, Tablet, [facility] #[id number], 165, cm, 04/30/20 14:30:00 EDT, Height, 127, kg, 02/03/20 14:39:00 EDT, Dry Weight Start Date: 04/30/20 Status: Ordered rosuvastatin 10 mg oral tablet 1 tablet = 10 mg, By Mouth, Daily, # 90 tablet, 3 Refills, Maintenance, 05/03/20 16:35:00 EDT, Tablet, [facility] #[id number], d/c rx for capsules, 165, cm, 04/30/20 14:30:00 EDT, Height, 127, kg, 02/03/20 14:39:00 EDT, Dry Weight Start Date: 05/03/20 Status: Ordered Ventolin HFA 108 mcg/inh inhalation aerosol with adapter 2 puffs, Inhalation, Every 4 hours, PRN Wheezing/Shortness of Breath, # 1 each, 5 Refills, Soft Stop, 11/08/20 8:46:00 EDT, [facility] #[id number], 165, cm, 10/19/20 8:59:00 EDT, Height, 127, kg, 02/03/20 14:39:00 EDT, Dry Weight Start Date: 11/08/20 Status: Ordered warfarin 2.5 mg oral tablet See Instructions, take 2.5mg thu sat subjet to change based on INR per MD, # 90 each, 3 Refills, Maintenance, 02/11/21 10:38:00 EDT, Tablet, [facility] #[id number], PLEASE GIVE THIS IN COMBINATION WITH 5MG TABLETS;, 165, cm, 01/11/21... 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
--- OUTSIDE RECORDS SUMMARY | 2024-01-02 21:19 | XMS_ITS | Continuity of Care Document ---
Author Organization [facility] Robin Jane Nolberto Address [address] [place] [address]- Care Team Providers Care Seismograph Supervisor Name Role Phone Radha GRIDER, Fuentes Kenny Primary Care Physician [facility]): 02[facility] - 03/30/21 [facility] Robin Bolañosley Adult [address] [place] [address]- Allergies, Adverse Reactions, Alerts Substance Reaction Severity [...] B adult vaccine 06/14/02 Recorded 1Result Comment: [id number] 2Result Comment: [id number] 3Result Comment: [07/08/2017] [id number] 4Admin Note: [facility] 5Admin Note: [facility] [...] 11 Refills, Maintenance, 10/31/20 14:14:00 EDT, Cream, [facility] #[id number], Partial fill upon patient request if the [...] 02/12/21 12:56:00 EDT, Route to Pharmacy Electronically, [facility] #[id number], 165, cm, 01/11/21 14:05:00 EDT, Height, 127, [...] PMR, history of smoking fax to : [phone], 04... Start Date: 10/26/20 Status: Ordered Disposable [...] Gm, 3 Refills, Maintenance, 06/22/20 14:58:00 EST, [facility] #[id number], 165, cm, 06/07/20 13:52:00 EST, Height, 127, [...] mL, 5 Refills, Maintenance, 10/01/18 10:08:42 EST, [facility], 2 sprays Nares, Both 2 times a [...] 08/02/20 16:13:00 EST, Route to Pharmacy Electronically, [facility] #[id number], D/C RX ON FILE FOR ABRAM, 165, [...] 3 Refills, Maintenance, 02/25/21 10:31:00 EDT, Tablet, [facility] #[id number], Partial fill upon patient request if the prescription is for a schedule II opioid drug., 165, cm, 01/11/21 14:... Start Date: 02/25/21 Status: Ordered methenamine hippurate 1 gm oral tablet 1 tablet = 1 Gm, By Mouth, 2 times a day, # 60 tablet, 1 Refills, Maintenance, 07/12/20 13:56:00 EST, [facility] #[id number], Partial fill upon patient request if the prescription is for a schedule II opioid drug., 165, cm, 07/11/20 15:24:00 EST,... Start Date: 07/12/20 Stop Date: 07/05/21 Status: Ordered Metoprolol Tartrate 25 mg oral tablet 1 tablet, By Mouth, 2 times a day, # 60 tablet, 2 Refills, Maintenance, 03/07/21 10:08:00 EDT, [facility] #[id number], 165, cm, 02/28/21 14:22:00 EDT, Height, 127, kg, 02/03/20 14:39:00 EDT, DryWeight Start Date: 03/07/21 Status: Ordered Mitigare 0.6 mg oral capsule 1 capsule, By Mouth, Daily, # 30 capsule, 11 Refills, Maintenance, 12/31/20 16:51:00 EDT, [facility] #[id number], 165, cm, 11/19/20 11:32:00 EDT, Height, 127, [...] 0 Refills, Maintenance, 06/18/20 16:57:00 EST, Patch, [facility] #[id number], Partial fill upon patient request, 165, cm, 06/07/20 13:52:00 EST, Height, 127, kg, 02/03/20 14:39:00 EDT, Dry Weight Start Date: 06/18/20 Stop Date: 07/30/20 Status: Ordered NuLYTELY with Flavor Packs oral powder for reconstitution See Instructions, Drink 240mL every 15-20 minutes until first half is gone. Repeat 6 hours prior toprocedure., # 4,000 mL, 0 Refills, Maintenance, 06/28/20 17:09:00 EST, [facility] #[id number],Partial fill upon patient request if the prescript... Start Date: 06/28/20 Status: Ordered oxyCODONE 5 mg oral tablet 10 mg, 2, tablet, By Mouth, Every 8 hours, DX Z79.891 G89.29 M47.816 OK TO FILL LESS THAN PRESCRIBED AMOUNT, # 168 tablet, Refills 0, Tot. Refills 0, Maintenance, 03/25/21 16:45:00 EDT, Route to Pharmacy Electronically, [facility] #[id number], D... Start Date: 03/25/21 Stop Date: 04/22/21 Status: Ordered penicillin V potassium 250 mg oral tablet 1 tablet = 250 mg, By Mouth, 2 times a day, Cellulitis prophylaxis, # 60 tablet, 11 Refills, Maintenance, 10/30/20 12:09:00 EDT, [facility] #[id number], 165, cm, 10/19/20 8:59:00 EDT, Height, 127, kg, 02/03/20 14:39:00 EDT, Dry Weight Start Date: 10/30/20 Status: Ordered predniSONE 5 mg oral tablet 1 tablet = 5 mg, By Mouth, Daily, # 30 tablet, 0 Refills, Maintenance, 01/11/21 14:20:00 EDT, Tablet, [facility] #[id number], Partial fill upon patient request if the [...] 5 Refills, Maintenance, 04/30/20 15:13:00 EDT, Tablet, [facility] #[id number], 165, cm, 04/30/20 14:30:00 EDT, Height, 127, kg, 02/03/20 14:39:00 EDT, Dry Weight Start Date: 04/30/20 Status: Ordered rosuvastatin 10 mg oral tablet 1 tablet = 10 mg, By Mouth, Daily, # 90 tablet, 3 Refills, Maintenance, 05/03/20 16:35:00 EDT, Tablet, [facility] #[id number], d/c rx for capsules, 165, cm, 04/30/20 14:30:00 EDT, Height, 127, kg, 02/03/20 14:39:00 EDT, Dry Weight Start Date: 05/03/20 Status: Ordered Ventolin HFA 108 mcg/inh inhalation aerosol with adapter 2 puffs, Inhalation, Every 4 hours, PRN Wheezing/Shortness of Breath, # 1 each, 5 Refills, Soft Stop, 11/08/20 8:46:00 EDT, [facility] #[id number], 165, cm, 10/19/20 8:59:00 EDT, Height, 127, kg, 02/03/20 14:39:00 EDT, Dry Weight Start Date: 11/08/20 Status: Ordered warfarin 2.5 mg oral tablet See Instructions, take 2.5mg sun sat subjet to change based on INR per MD, # 90 each, 3 Refills, Maintenance, 02/11/21 10:38:00 EDT, Tablet, [facility] #[id number], PLEASE GIVE THIS IN COMBINATION WITH 5MG TABLETS;, 165, cm, 01/11/21... 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
--- OUTSIDE RECORDS SUMMARY | 2024-01-02 21:20 | XMS_ITS | Continuity of Care Document ---
Author Organization [facility] Nolberto Address [address] [place] [address]- Care Team Providers Care Transformation Lead Name Role Phone Krishan GRIDER, Eulogio Molina Primary Care Physician [phone] [facility] Date(s): 04/08/22 - 05/08/22 [facility] Adult [address] [place] [address]- Allergies, Adverse Reactions, Alerts Substance Reaction Severity [...] vaccine, inactivated 05/10/07 Jarrett rded SARS-CoV-2 mRNA ([id number]) vax 08/30/21 Recorded SARS-CoV-2 (COVID-19) mRNA BNT-162b2 vac 01/02/21 Recorded SARS-CoV-2 (COVID-19) mRNA BNT-162b2 vac 12/02/20 Recorded Fluvirin (oldterm) 8 03/22/15 Given Fluzone Preservative-Free (oldterm) 9 03/12/12 Giv en pneumococcal 23-valent vaccine 10/08/11 Given tetanus/diphtheria/pertussis, acel(Tdap) 09/08/11 Given tetanus/diphtheria/pertussis, acel(Tdap) 12/17/06 Recorded influ virus vac, H1N1, inactive(oldterm) 10 05/08/11 Given hepatitis B adult vaccine 06/14/02 Recorded 1Result Comment: [id number] 2Result Comment: [id number] 3Result Comment: [id number] 4Result Comment: [id number] 5Result Comment: [07/08/2017] [id number] 6Admin Note: [facility] 7Admin Note: [facility] [...] Gm, 4 Refills, Maintenance, 04/28/22 13:11:00 EDT, [facility], 17, INHALE 2 PUFFS BY MOUTH EVERY FOUR HOURS NEEDED FOR WHEEZING... Start Date: 04/28/22 Status: Ordered cloNIDine 0.1 mg oral tablet See Instructions, TAKE 1 TABLET BY MOUTH TWICE A DAY NEEDED FOR FOR ANXIETY (VIAL), # 60 tablet,Refills 1, Maintenance, 04/28/22 13:11:00 EDT, Instructions Replace Required Details, Route to Pharmacy Electronically, [facility], 159, cm, 06... Start Date: 04/28/22 Status: Ordered colchicine 0.6 mg oral tablet 0.6 mg, 1, tablet, By Mouth, Daily, # 30 tablet, Refills 11, Tot. Refills 11, Maintenance, :00:00 EDT, Route to Pharmacy Electronically, [facility], Partial fill upon patient [...] Pharmacy Electronically, [facility], Partial fill upon patient request if the prescri... Start Date: 01/11/22 Stop Date: 02/10/22 Status: Ordered duloxetine 20 mg oral enteric coated capsule 2 capsule = 40 mg, By Mouth, Daily at bedtime, # 60 capsule, 11 Refills, Maintenance, 06/25/21 12:00:00 EST, [facility], Partial fill upon patient request if [...] Details, [facility], 165, cm, 06/25/21 11:35:00 EST, Height, 127, kg, 02/03/20 14:39:00 EDT, Dry Weight Start Date: 08/05/21 Status: Ordered penicillin V potassium 250 mg oral tablet 1 tablet, By Mouth, 2 times a day, CELLULITIS PROPHYLAXIS., # 60 tablet, 6 Refills, [facility], 165, cm, 11/08/21 10:02:00 EDT, Height, 127, kg, 02/03/20 14:39:00 EDT, Dry Weight Start Date: 11/15/21 Status: Ordered predniSONE 20 mg oral tablet 1 tablet = 20 mg, By Mouth, 2 times a day, # 10 tablet, 0 Refills, Acute 05/10/22 12:45:00 EDT, 05/05/22 12:40:00 EDT, [facility] #[id number], Partial fill upon patient request if the prescription is for a schedule II opioid drug., 159, cm, 05/05... Start Date: 05/05/22 Stop Date: 05/10/22 Status: Ordered rOPINIRole 0.5 mg oral tablet 1 tablet, By Mouth, 3 times a day, # 90 tablet, 5 Refills, 03/07/22 6:14:00 EDT, [facility], 159, cm, 01/11/22 15:15:00 EDT, Height, 98.8, kg, 01/10/22 9:12:00 EDT, Dry Weight Start Date: 03/07/22 Status: Ordered rosuvastatin 10 mg oral tablet See Instructions, TAKE 1 TABLET BY MOUTH DAILY, # 90 tablet, 1 Refills, Maintenance, 04/04/22 11:35:00 EDT, [facility], 159, cm, 01/11/22 15:15:00 EDT, Height, 98.8, kg, 01/10/22 9:12:00 EDT,Dry Weight Start Date: 04/04/22 Status: Ordered Symbicort 80mcg/4.5mcg Inhaler See Instructions, INHALE 2 PUFFS BY MOUTH TWICE A DAY RINSE MOUTH AND THROAT AFTER USE, # 10.2 Gm, Refills 5, Instructions Replace Required Details, Route to Pharmacy Electronically, [id number], [facility], 159, cm, 01/11/22 15:15:00 EDT... Start Date: 02/13/22 Status: Ordered warfarin 1 mg oral tablet See Instructions, Take 1-10 tablets By Mouth Daily as directed by [facility], # 150 tablet, 0 Refills, Maintenance, 01/11/22 7:24:00 EDT, Tablet, [facility], Partial fill upon patient [...] Name: Krishan GRIDER, Eulogio Molina Address: Address: [address] [place] [address]
--- OUTSIDE RECORDS SUMMARY | 2024-01-02 21:20 | XMS_ITS | Continuity of Care Document ---
Author Organization [facility] Address [address] [place] [address]- Care Team Providers Care Absorption Plant Operator Helper Name Role Phone Krishan GRIDER, Eulogio Molina Primary Care Physician Encounter [facility] [place] Date(s): 12/06/21 - 01/05/22 [facility] [address] [place] [address]- Attending Physician: Admtr, [id number] Admitting Physician: Admtr, [id number] Referring Physician: Admtr, Ar8 Allergies, Adverse Reactions, Alerts Substance Reaction Severity Status Adhesive Bandage Active Dust copd exac/sinus congestion A ctive Immunizations Given and Recorded Vaccine Date Status Refusal Reason SARS-CoV-2 mRNA (savhpik-lmic-njchx) vax 08/30/21 Recorded influenza virus vaccine, inactivated [...] B adult vaccine 06/14/02 Recorded 1Result Comment: [id number] 2Result Comment: [id number] 3Result Comment: [id number] 4Result Comment: [07/08/2017] [id number] 5Admin Note: [facility] 6Admin Note: [facility] [...] 8.5 Gm, 5 Refills, 05/29/21 17:13:00 EDT, [facility] #[id number], 17, INHALE 2 PUFFS BY MOUTH EVERY [...] Maintenance, 227:00:00 EDT, Route to Pharmacy Electronically, [facility], Partial fill upon patient request if the prescription is for a schedule II opioid dr... Start Date: 10/30/21 Status: Ordered digoxin 0.125 mg oral tablet 125 mcg, 1, tablet, By Mouth, Daily, # 90 tablet, Refills 1, Tot. Refills 1, Maintenance, 12/11/21 13:41:00 EDT, [facility], Partial fill upon patient request if [...] Replace Required Details, Route to Pharmacy Electronically, [facility], 165, cm, 06/25/21 11:35:00 EST, Height, 127, kg, 02/03/20 14:39:00 EDT, Dry Weight Start Date: 08/05/21 Status: Ordered metoprolol 100 mg oral tablet, extended release 100 mg, 1, tablet, By Mouth, Daily, # 90 tablet, Refills 1, Tot. Refills 1, Maintenance, 12/11/21 13:41:00 EDT, Route to Pharmacy Electronically, [facility], Partial fill upon patient requestif the prescription is for a schedule II opioid keanu... Start Date: 12/11/21 Status: Ordered nicotine 4 mg oral transmucosal gum 1 each = 4 mg, Chew, Every 2 hours, PRN as needed for smoking cessation, # 160 each, 2 Refills, Acute 03/05/22 16:36:00 EDT, 12/03/21 16:35:00 EDT, [facility] #[id number], Partial fill uponpatient request if the prescription is for a schedu... Start Date: 12/03/21 Stop Date: 03/05/22 Status: Ordered NuLYTELY with Flavor Packs oral powder for reconstitution 240 mL, By Mouth, Every 10 minutes, # 1 each, 0 Refills, Maintenance, 10/25/21 10:39:00 EDT, REC Powder, [facility], Partial fill upon patient request if the prescription is for a schedule IIopioid drug., 240 mL By Mouth Every 10 minutes, 165... Start Date: 10/25/21 Status: Ordered penicillin V potassium 250 mg oral tablet 1 tablet, By Mouth, 2 times a day, CELLULITIS PROPHYLAXIS., # 60 tablet, 6 Refills, [facility], 165, cm, 11/08/21 10:02:00 EDT, Height, 127, kg, 02/03/20 14:39:00 EDT, Dry Weight Start Date: 11/15/21 Status: Ordered rOPINIRole 0.5 mg oral tablet 1 tablet, By Mouth, 3 times a day, # 90 tablet, 5 Refills, 11/08/21 9:01:00 EDT, [facility], 165, cm, 11/04/21 8:42:00 EDT, Height, 127, kg, 02/03/20 14:39:00 EDT, Dry Weight Start Date: 11/08/21 Status: Ordered rosuvastatin 10 mg oral tablet See Instructions, TAKE 1 TABLET BY MOUTH DAILY, # 90 tablet, 1 Refills, Maintenance, 10/18/21 21:30:00 EDT, [facility], 165, cm, 09/04/21 14:01:00 EST, Height, [...] 6 Refills, Maintenance, 12/13/21 13:47:00 EDT, Tablet, [facility], Dosing Subject To Change per INR Result per MD,165, cm, 12/06/21 14:01:00 EDT, Height, 102.1, kg,... Start Date: 12/13/21 Status: Ordered warfarin 5 mg oral tablet See Instructions, Dosing Subject To Change Per INR Result per MD, # 30 each, 6 Refills, Maintenance, 12/13/21 14:01:00 EDT, Tablet, [facility], PLEASE GIVE BOTH 5MG TABLETS [...] long-term use(Confirmed) Active Gastric banding status(Confirmed) Active [facility] current use of 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
--- OUTSIDE RECORDS SUMMARY | 2024-01-02 21:20 | XMS_ITS | Continuity of Care Document ---
Author Organization [facility] Address [address] [place] [address]- Care Team Providers Care Children Counselor Name Role Phone Radha GRIDER, Fuentes Kenny Primary Care Physician [facility] Date(s): 03/20/21 - 04/19/21 [facility] Adult [address] [place] [address]- Allergies, Adverse Reactions, Alerts Substance Reaction Severity [...] B adult vaccine 06/14/02 Recorded 1Result Comment: [id number] 2Result Comment: [id number] 3Result Comment: [07/08/2017] [id number] 4Admin Note: [facility] 5Admin Note: [facility] [...] 11 Refills, Maintenance, 10/31/20 14:14:00 EDT, Cream, [facility] #[id number], Partial fill upon patient request if the [...] 04/09/21 14:32:00 EDT, Route to Pharmacy Electronically, [facility], 165, cm, 02/28/21 14:22:00 EDT, Height, [...] PMR, history of smoking fax to : [phone], 04... Start Date: 10/26/20 Status: Ordered Disposable [...] Gm, 3 Refills, Maintenance, 06/22/20 14:58:00 EST, [facility] #[id number], 165, cm, 06/07/20 13:52:00 EST, Height, 127, [...] mL, 5 Refills, Maintenance, 10/01/18 10:08:42 EST, [place], 2 sprays Nares, Both 2 times [...] 08/02/20 16:13:00 EST, Route to Pharmacy Electronically, [facility] #[id number], D/C RX ON FILE FOR ABRAM, 165, [...] 3 Refills, Maintenance, 02/25/21 10:31:00 EDT, Tablet, [facility] #[id number], Partial fill upon patient request if the prescription is for a schedule II opioid drug., 165, cm, 01/11/21 14:... Start Date: 02/25/21 Status: Ordered methenamine hippurate 1 gm oral tablet 1 tablet = 1 Gm, By Mouth, 2 times a day, # 60 tablet, 1 Refills, Maintenance, 07/12/20 13:56:00 EST, [facility] #[id number], Partial fill upon patient request if the prescription is for a schedule II opioid drug., 165, cm, 07/11/20 15:24:00 EST,... Start Date: 07/12/20 Stop Date: 07/05/21 Status: Ordered Metoprolol Tartrate 25 mg oral tablet 1 tablet, By Mouth, 2 times a day, # 60 tablet, 2 Refills, Maintenance, 03/07/21 10:08:00 EDT, [facility] #[id number], 165, cm, 02/28/21 14:22:00 EDT, Height, 127, kg, 02/03/20 14:39:00 EDT, DryWeight Start Date: 03/07/21 Status: Ordered Mitigare 0.6 mg oral capsule 1 capsule, By Mouth, Daily, # 30 capsule, 11 Refills, Maintenance, 12/31/20 16:51:00 EDT, [facility] #[id number], 165, cm, 11/19/20 11:32:00 EDT, Height, 127, [...] 0 Refills, Maintenance, 04/11/21 9:00:00 EDT, Patch, [facility], Partial fill upon patient request, 165, cm, 02/28/21 14:22:00 EDT, Height, 127, kg, 02/03/20 14:39:00 EDT, Dry Weight Start Date: 04/11/21 Stop Date: 05/23/21 Status: Ordered NuLYTELY with Flavor Packs oral powder for reconstitution See Instructions, Drink 240mL every 15-20 minutes until first half is gone. Repeat 6 hours prior toprocedure., # 4,000 mL, 0 Refills, Maintenance, 06/28/20 17:09:00 EST, [facility] #[id number],Partial fill upon patient request if the prescript... Start Date: 06/28/20 Status: Ordered oxyCODONE 5 mg oral tablet 10 mg, 2, tablet, By Mouth, Every 8 hours, DX Z79.891 G89.29 M47.816 OK TO FILL LESS THAN PRESCRIBED AMOUNT, # 168 tablet, Refills 0, Tot. Refills 0, Maintenance, 03/25/21 16:45:00 EDT, Route to Pharmacy Electronically, [facility] #[id number], D... Start Date: 03/25/21 Stop Date: 04/22/21 Status: Ordered penicillin V potassium 250 mg oral tablet 1 tablet = 250 mg, By Mouth, 2 times a day, Cellulitis prophylaxis, # 60 tablet, 11 Refills, Maintenance, 10/30/20 12:09:00 EDT, [facility] #[id number], 165, cm, 10/19/20 8:59:00 EDT, Height, 127, kg, 02/03/20 14:39:00 EDT, Dry Weight Start Date: 10/30/20 Status: Ordered predniSONE 5 mg oral tablet 1 tablet = 5 mg, By Mouth, Daily, # 30 tablet, 0 Refills, Maintenance, 01/11/21 14:20:00 EDT, Tablet, [facility] #[id number], Partial fill upon patient request if the [...] 3 times a day, # 90 tablet, 1 Refills, Maintenance, 04/09/21 14:31:00 EDT, Tablet, [facility], 165, cm, 02/28/21 14:22:00 EDT, Height, 127, kg, 02/03/20 14:39:00 EDT, Dry Weight Start Date: 04/09/21 Status: Ordered rosuvastatin 10 mg oral tablet 1 tablet = 10 mg, By Mouth, Daily, # 90 tablet, 3 Refills, Maintenance, 05/03/20 16:35:00 EDT, Tablet, [facility] #[id number], d/c rx for capsules, 165, cm, 04/30/20 14:30:00 EDT, Height, 127, kg, 02/03/20 14:39:00 EDT, Dry Weight Start Date: 05/03/20 Status: Ordered Ventolin HFA 108 mcg/inh inhalation aerosol with adapter 2 puffs, Inhalation, Every 4 hours, PRN Wheezing/Shortness of Breath, # 1 each, 5 Refills, Soft Stop, 11/08/20 8:46:00 EDT, [facility] #[id number], 165, cm, 10/19/20 8:59:00 EDT, Height, 127, kg, 02/03/20 14:39:00 EDT, Dry Weight Start Date: 11/08/20 Status: Ordered warfarin 2.5 mg oral tablet See Instructions, take 2.5mg sun sat subjet to change based on INR per MD, # 90 each, 3 Refills, Maintenance, 02/11/21 10:38:00 EDT, Tablet, [facility] #[id number], PLEASE GIVE THIS IN COMBINATION WITH 5MG TABLETS;, 165, cm, 01/11/21... Start Date: 02/11/21 Status: Ordered warfarin 5 mg oral tablet 1 tablet = 5 mg, By Mouth, Daily, dosing subject to change pending inr lab values TAKE thu,# 90 tablet, 11 Refills, Maintenance, 02/11/21 10:42:00 EDT, Tablet, [facility] #[id number], PLEASE GIVE BOTH 5MG TABLETS AND 2.5MG [...] long-term use(Confirmed) Active Gastric banding status(Confirmed) Active [facility] current use of 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
--- OUTSIDE RECORDS SUMMARY | 2024-01-02 21:20 | XMS_ITS | Continuity of Care Document ---
Author Organization [facility] ter Address [address] [place] [address]- Care Team Providers Care Mold Holder Name Role Phone Fuentes Garcia MD Primary Care Physician Encounter [facility] Date(s): 09/12/19 - 11/18/[address] [address]- [facility] Attending Physician: Rocio Perez MD Admitting Physician: Rocio Perez MD Allergies, Adverse Reactions, Alerts Substance Reaction [...] H1N1, inactive(oldterm) 7 05/08/11 Given 1Result Comment: [id number] 2Result Comment: [07/08/2017] [id number] 3Admin Note: [facility] 4Admin Note: [facility] - 5Admin Note: Given at [facility] 6Admin Note: 03-11-12 GIVEN AT [facility] 7Ain Note: rcvd elsewhere Medications Acetaminophen = 650 [...] 14:30:22 EST, Route to Pharmacy Electronically, [id number], [address], please schedule appt for further refills Start Date: 06/17/19 Status: Ordered Claritin 10 mg oral tablet 10 mg, 1, tablet, By Mouth, Daily, for 30 days, # 30 tablet, Refills 11, Tot. Refills 11, Acute 05/11/20 17:36:41 EDT, 05/17/19 17:36:41 EDT, Route to Pharmacy Electronically, [id number], [address] Start Date: 05/17/19 Stop Date: 05/11/20 [...] mL, 5 Refills, Maintenance, 10/01/18 10:08:42 EST, [place], 2 sprays Nares, Both 2 times a [...] 09/28/19 11:53:00 EST, Route to Pharmacy Electronically, [email or web address] #[id number], 162, cm, 09/21/2011:01:00 EST, Height, 116.4, kg, [...] 0 Refills, Maintenance, 11/04/19 18:49:00 EDT, Tablet, [id number], 11/08/19, 162, cm, 09/21/19 12:01:00 EST, He... 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
--- OUTSIDE RECORDS SUMMARY | 2024-01-02 21:20 | XMS_ITS | Continuity of Care Document ---
Author Organization [facility] Address [address] [place] [address]- Care Team Providers Care Tube Cutter Name Role Phone Kirshan GRIDER, Eulogio Molina Primary Care Physician [facility]counter [facility] Date(s): 11/14/21 - 12/14/21 [facility] Adult [address] [place] [address]- Allergies, Adverse Reactions, Alerts Substance Reaction Severity Status Adhesive Bandage Active Dust copd exac/sinus congestion A ctive Immunizations Given and Recorded Vaccine Date Status Refusal Reason SARS-CoV-2 mRNA (efweaup-nsho-rhlyf) vax 08/30/21 Recorded influenza virus vaccine, inactivated [...] B adult vaccine 06/14/02 Recorded 1Result Comment: [id number] 2Result Comment: [id number] 3Result Comment: [id number] 4Result Comment: [07/08/2017] [id number] 5Admin Note: [facility] 6Admin Note: [facility] [...] 8.5 Gm, 5 Refills, 05/29/21 17:13:00 EDT, [facility] #[id number], 17, INHALE 2 PUFFS BY MOUTH EVERY 4 HOURS NEEDED FOR WHEEZING OR SHORTNE... Start Date: 05/29/21 Status: Ordered calcipotriene 0.005% topical cream 1 application, Topically, 2 times a day, # 60 Gm, 11 Refills, Maintenance, 11/15/21 11:54:00 EDT, Cream, [facility], Partial fill upon patient request if the prescription is for a schedule IIopioid drug., 1 application Topically 2 times a day... Start Date: 11/15/21 Status: Ordered colchicine 0.6 mg oral tablet 0.6 mg, 1, tablet, By Mouth, Daily, # 30 tablet, Refills 11, Tot. Refills 11, Maintenance, :00:00 EDT, Route to Pharmacy Electronically, [facility], Partial fill upon patient request if the prescription is for a schedule II opioid drTorey.. Start Date: 10/30/21 Status: Ordered cyclobenzaprine 10 mg oral tablet See Instructions, PRN, 1 tablet By Mouth 3 times a day as needed, # 20 tablet, Refills 0, Tot. Refills 0, Maintenance, for spasm, 11/08/21 10:23:00 EDT, Instructions Replace Required Details, Route to Pharmacy Electronically, [facility][id number]... Start Date: 11/08/21 Status: Ordered digoxin 0.125 mg oral tablet 125 mcg, 1, tablet, By Mouth, Daily, # 90 tablet, Refills 1, Tot. Refills 1, Maintenance, 12/11/21 13:41:00 EDT, Route to Pharmacy Electronically, [facility], Partial fill upon patient request if the prescription is for a schedule II opioid drTorey.. Start Date: 12/11/21 Status: Ordered duloxetine 20 mg oral enteric coated capsule 2 capsule = 40 mg, By Mouth, Daily at bedtime, # 60 capsule, 11 Refills, Maintenance, 06/25/21 12:00:00 EST, Capsule, [facility], Partial fill upon patient request if [...] 5 Refills, Maintenance, 11/18/21 13:49:00 EDT, Tablet, [facility], Partial fill upon patient request if [...] Details, Route to Pharmacy Electronically, [facility], 165, cm, 06/25/21 11:35:00 EST, Height, 127, kg, 02/03/20 14:39:00 EDT, Dry Weight Start Date: 08/05/21 Status: Ordered metoprolol 100 mg oral tablet, extended release 100 mg, 1, tablet, By Mouth, Daily, # 90 tablet, Refills 1, Tot. Refills 1, Maintenance, 12/11/21 13:41:00 EDT, Route to Pharmacy Electronically, [facility], Partial fill upon patient requestif the prescription is for a schedule II opioid keanu... Start Date: 12/11/21 Status: Ordered nicotine 4 mg oral transmucosal gum 1 each = 4 mg, Chew, Every 2 hours, PRN as needed for smoking cessation, # 160 each, 2 Refills, Acute 03/05/22 16:36:00 EDT, 12/03/21 16:35:00 EDT, Gum, [facility] #[id number], Partial fill uponpatient request if the prescription is for a schedu... Start Date: 12/03/21 Stop Date: 03/05/22 Status: Ordered NuLYTELY with Flavor Packs oral powder for reconstitution 240 mL, By Mouth, Every 10 minutes, # 1 each, 0 Refills, Maintenance, 10/25/21 10:39:00 EDT, REC Powder, [facility], Partial fill upon patient request if the prescription is for a schedule IIopioid drug., 240 mL By Mouth Every 10 minutes, 165... Start Date: 10/25/21 Status: Ordered penicillin V potassium 250 mg oral tablet 1 tablet, By Mouth, 2 times a day, CELLULITIS PROPHYLAXIS., # 60 tablet, 6 Refills, [facility], 165, cm, 11/08/21 10:02:00 EDT, Height, 127, kg, 02/03/20 14:39:00 EDT, Dry Weight Start Date: 11/15/21 Status: Ordered rOPINIRole 0.5 mg oral tablet 1 tablet, By Mouth, 3 times a day, # 90 tablet, 5 Refills, 11/08/21 9:01:00 EDT, [facility], 165, cm, 11/04/21 8:42:00 EDT, Height, 127, kg, 02/03/20 14:39:00 EDT, Dry Weight Start Date: 11/08/21 Status: Ordered rosuvastatin 10 mg oral tablet See Instructions, TAKE 1 TABLET BY MOUTH DAILY, # 90 tablet, 1 Refills, Maintenance, 10/18/21 21:30:00 EDT, [facility], 165, cm, 09/04/21 14:01:00 EST, Height, 127, kg, 02/03/20 14:39:00 EDT,Dry Weight Start Date: 10/18/21 Status: Ordered warfarin 2.5 mg oral tablet See Instructions, Dosing Subject To Change per INR Result per MD, # 30 each, 6 Refills, Maintenance, 12/13/21 13:47:00 EDT, Tablet, [facility], Dosing Subject To Change per INR Result per MD,165, cm, 12/06/21 14:01:00 EDT, Height, 102.1, kg,... Start Date: 12/13/21 Status: Ordered warfarin 5 mg oral tablet See Instructions, Dosing Subject To Change Per INR Result per MD, # 30 each, 6 Refills, Maintenance, 12/13/21 14:01:00 EDT, Tablet, [facility], PLEASE GIVE BOTH 5MG TABLETS AND [...]
--- OUTSIDE RECORDS SUMMARY | 2024-01-02 21:20 | XMS_ITS | Continuity of Care Document ---
Author Organization [facility] lt Address [address] [place] [address]- Care Team Providers Care Board Lining Machine Operator Name Role Phone Radha GRIDER, Fuentes Kenny Primary Care Physician [facility] 06[facility]21 - 07/17/21 [facility] Robin Bolañosley Adult [address] [place] [address]- Allergies, Adverse Reactions, Alerts Substance Reaction Severity [...] B adult vaccine 06/14/02 Recorded 1Result Comment: [id number] 2Result Comment: [id number] 3Result Comment: [id number] 4Result Comment: [07/08/2017] [id number] 5Admin Note: [facility] 6Admin Note: [facility] [...] 8.5 Gm, 5 Refills, 05/29/21 17:13:00 EDT, [facility] #[id number], 17, INHALE 2 PUFFS BY MOUTH EVERY [...] 11 Refills, Maintenance, 10/31/20 14:14:00 EDT, Cream, [facility] #[id number], Partial fill upon patient request if the [...] tablet, Refills 3, Route to Pharmacy Electronically, [facility], 165, cm, 06/25/21 11:35:00 EST, Height, [...] PMR, history of smoking fax to : [phone], 04... Start Date: 10/26/20 Status: Ordered Disposable [...] 11 Refills, Maintenance, 06/25/21 12:00:00 EST, Capsule, [facility], Partial fill upon patient request if [...] Gm, 3 Refills, Maintenance, 06/22/20 14:58:00 EST, [facility] #[id number], 165, cm, 06/07/20 13:52:00 EST, Height, 127, [...] Refills, Maintenance, 05/24/21 16:13:00 EDT, REC Powder, [facility] #[id number], Partial fill upon patient request if the [...] mL, 5 Refills, Maintenance, 10/01/18 10:08:42 EST, [place], 2 sprays Nares, Both 2 times a [...] 08/02/20 16:13:00 EST, Route to Pharmacy Electronically, [facility] #[id number], D/C RX ON FILE FOR ABRAM, 165, [...] tablet, 6Refills, Maintenance, 05/21/21 11:19:00 EDT, Tablet, [facility], Partial fill upon patient request if the prescription is for a schedule II... Start Date: 05/21/21 Status: Ordered methenamine hippurate 1 gm oral tablet 1 tablet = 1 Gm, By Mouth, 2 times a day, # 60 tablet, 11 Refills, Maintenance, 07/05/21 14:00:00 EST, [facility], Partial fill upon patient request if the prescription is for a schedule II opioid drug., 165, cm, 02/28/21 14:22:00 EDT, Height,... Start Date: 07/05/21 Status: Ordered Metoprolol Tartrate 25 mg oral tablet 1 tablet, By Mouth, 2 times a day, # 60 tablet, 3 Refills, [facility], 165, cm, 06/25/21 11:35:00 EST, Height, 127, kg, 02/03/20 14:39:00 EDT, Dry Weight Start Date: 07/09/21 Status: Ordered Mitigare 0.6 mg oral capsule 1 capsule, By Mouth, Daily, # 30 capsule, 11 Refills, Maintenance, 12/31/20 16:51:00 EDT, [facility] #[id number], 165, cm, 11/19/20 11:32:00 EDT, Height, 127, [...] 0 Refills, Maintenance, 04/11/21 9:00:00 EDT, Patch, [facility], Partial fill upon patient request, 165, cm, 02/28/21 14:22:00 EDT, Height, 127, kg, 02/03/20 14:39:00 EDT, Dry Weight Start Date: 04/11/21 Stop Date: 05/23/21 Status: Ordered NuLYTELY with Flavor Packs oral powder for reconstitution See Instructions, Drink 240mL every 15-20 minutes until first half is gone. Repeat 6 hours prior toprocedure., # 4,000 mL, 0 Refills, Maintenance, 06/28/20 17:09:00 EST, [facility] #[id number],Partial fill upon patient request if the prescript... Start Date: 06/28/20 Status: Ordered oxyCODONE 10 mg oral tablet 1 tablet = 10 mg, By Mouth, Every 8 hours, DX Z79.891 G89.29 M47.816 OK TO FILL LESS THAN PRESCRIBED AMOUNT, # 84 tablet, 0 Refills, Maintenance, 07/16/21 13:32:00 EST, Tablet, [facility] #[id number], 165, cm, 06/25/21 11:35:00 EST, Height, 127,... Start Date: 07/16/21 Stop Date: 08/13/21 Status: Ordered oxyCODONE 5 mg oral tablet 10 mg, 2, tablet, By Mouth, Every 8 hours, DX Z79.891 G89.29 M47.816 OK TO FILL LESS THAN PRESCRIBED AMOUNT, # 168 tablet, Refills 0, Tot. Refills 0, Maintenance, 03/25/21 16:45:00 EDT, Route to Pharmacy Electronically, [facility] #[id number], D... Start Date: 03/25/21 Stop Date: 04/22/21 Status: Ordered penicillin V potassium 250 mg oral tablet 1 tablet = 250 mg, By Mouth, 2 times a day, Cellulitis prophylaxis, # 60 tablet, 11 Refills, Maintenance, 10/30/20 12:09:00 EDT, [facility] #[id number], 165, cm, 10/19/20 8:59:00 EDT, Height, 127, kg, 02/03/20 14:39:00 EDT, Dry Weight Start Date: 10/30/20 Status: Ordered predniSONE 5 mg oral tablet 1 tablet = 5 mg, By Mouth, Daily, # 30 tablet, 0 Refills, Maintenance, 01/11/21 14:20:00 EDT, Tablet, [facility] #[id number], Partial fill upon patient request if the prescription is for a schedule II opioid drug., 165, cm, 01/11/21 14:05:00 EDT,... Start Date: 01/11/21 Status: Ordered propranolol 20 mg oral tablet 20 mg, 1, tablet, By Mouth, 2 times a day, # 60 tablet, Refills 5, Tot. Refills 5, Maintenance, 06/25/21 11:57:00 EST, Route to Pharmacy Electronically, [facility], Partial fill upon patient request if [...] a day, # 90 tablet, 3 Refills, [facility], 165, cm, 06/25/21 11:35:00 EST, Height, 127, kg, 02/03/20 14:39:00 EDT, Dry Weight Start Date: 07/09/21 Status: Ordered rosuvastatin 10 mg oral tablet 1 tablet = 10 mg, By Mouth, Daily, # 90 tablet, 1 Refills, Maintenance, 05/20/21 15:53:00 EDT, Tablet, [facility], d/c rx for capsules, 165, cm, 02/28/21 14:22:00 EDT, Height, 127, kg, 02/03/20 14:39:00 EDT, Dry Weight Start Date: 05/20/21 Status: Ordered Trulicity Pen 0.75 mg/0.5 mL subcutaneous solution 0.5 mL = 0.75 mg, Subcutaneous Injection, Every week, take on same day every week, rotate injectionsites E11.9, # 2 mL, 1 Refills, Maintenance, 05/21/21 11:18:00 EDT, Solution, [facility] #[id number], Partial fill upon patient request if the... Start Date: 05/21/21 Status: Ordered warfarin 2.5 mg oral tablet See Instructions, Dosing Subject To Change per INR Result per MD, # 30 each, 6 Refills, Maintenance, 06/12/21 17:09:00 EST, Tablet, [facility], Dosing Subject To Change per INR Result per MD,165, cm, 05/21/21 10:54:00 EDT, Height, 127, kg, 07... Start Date: 06/12/21 Status: Ordered warfarin 5 mg oral tablet See Instructions, Dosing Subject To Change Per INR Result per MD, # 30 each, 6 Refills, Maintenance, 06/12/21 17:05:00 EST, Tablet, [facility], PLEASE GIVE BOTH 5MG TABLETS AND [...]
--- OUTSIDE RECORDS SUMMARY | 2024-01-02 21:20 | XMS_ITS | Continuity of Care Document ---
Author Organization [facility] Robin Jane Nolberto Address [address] [place] [address]- Care Team Providers Care Graphic Illustrator Name Role Phone Kyle Ahumada DO Primary Care Physician Encounter [facility] Date(s): 11/12/23 - 11/19/23 [facility] Robin Bolañosley Adult [address] [place] [address]- Encounter Diagnosis Chronic obstructive pulmonary disease (COPD)(Discharge Diagnosis) - 11/11/23 Bipolar disorder NOS(Discharge Diagnosis) - 11/11/23 Type 2 diabetes mellitus with hyperglycemia(Discharge Diagnosis) - 11/11/23 Paroxysmal atrial flutter(Discharge Diagnosis) - 11/11/23 Chronic deep vein thrombosis (DVT)(Discharge Diagnosis) - 11/11/23 Congestive heart failure(Discharge Diagnosis) - 11/11/23 Severe obesity(Discharge Diagnosis) - 11/11/23 Rhinitis(Discharge Diagnosis) - 11/12/23 Epistaxis(Discharge Diagnosis) - 11/12/23 Low back pain(Discharge Diagnosis) - 11/12/23 Tension headache(Discharge Diagnosis) - 11/12/23 Attending Physician: Kyle Ahumada DO Allergies, Adverse [...] Give n influenza virus vaccine, inactivated 7 12/13/17 Gi octavio influenza virus vaccine, inactivated 8 [...] vaccine, inactivated 05/10/07 Jarrett rded SARS-CoV-2 mRNA ([id number]) vax 08/30/21 Recorded SARS-CoV-2 (COVID-19) mRNA BNT-162b2 [...] Comment: PCV 20 [facility]#[id number] 2Result Comment: Flu [facility]#[id number] 3Result Comment: [id number] 4Result Comment: [id number] 5Result Comment: [id number] 6Result Comment: [id number] 7Result Comment: [07/08/2017] [id number] 8Admin Note: [facility] 9Admin Note: [facility] 9-13 10Admin Note: Given at [facility] 11Admin Note: 03-11-12 GIVEN AT [facility] 12Admin Note: rcvd elsewhere Medications acetaminophen 325 mg oral tablet 2, tablet, By Mouth, Every 6 hours, PRN, # 100 tablet, Refills 5, Maintenance, NEEDED FOR MODERATE PAIN (VIAL), 09/14/23 15:41:00 EST, Route to Pharmacy Electronically, [facility], 160, cm, 07/07/23 15:02:00 EST, Height, 112.4, kg, 06/24/23... Start Date: 09/14/23 Status: Ordered Albuterol (Eqv-ProAir HFA) 90 mcg/inh inhalation aerosol 2 puffs, Inhalation, Every 4 hours, PRN NEEDED FOR WHEEZING OR FOR SHORTNESS OF BREATH (BULK), #8.5 Gm, 5 Refills, Maintenance, 07/25/23 11:45:00 EST, [facility], 17, INHALE 2 PUFFS [...] 10/07/23 15:53:00 EDT, Route to Pharmacy [facility], [facility], 160, cm, 07/07/2315:02:00 EST, Height, 112.4, kg, 06/24/23 17:38:00... Start Date: 10/07/23 Status: Ordered docusate sodium 100 mg oral capsule 100 mg, 1, capsule, By Mouth, 2 times a day, hold for loose stool, # 180 capsule, Refills 3, Tot. Refills 3, Maintenance, 03/13/23 16:56:00 EDT, Route to Pharmacy Electronically, [facility], Partial fill upon patient request if the prescriptio... Start Date: 03/13/23 Stop Date: 04/12/23 Status: Ordered duloxetine 20 mg oral enteric coated capsule 2 capsule = 40 mg, By Mouth, Daily at bedtime, # 60 capsule, 11 Refills, Maintenance, 06/25/21 12:00:00 EST, Capsule, [facility], Partial fill upon patient [...] Replace Required Details, Route to Pharmacy Electronically, [facility], 160, cm, 07/07/23 15:02:00 EST, Height,... Start Date: 07/28/23 Status: Ordered furosemide 40 mg oral tablet 40 mg, 1, tablet, By Mouth, Daily, # 90 tablet, Refills 1, Tot. Refills 1, Maintenance, 03/02/23 18:12:00 EDT, Route to Pharmacy Electronically, [facility], Partial fill upon patient request if [...] mL, 11 Refills, Maintenance, 08/11/23 7:46:00 EST, [facility], 30, INSTILL 2 SPRAYS IN [...] 07/01/23 14:32:00 EST, Route to Pharmacy Electronically, [facility], 160, cm, 06/26/23 11:21:00 EST, Height, 112.4, kg, 06/24/23 17:38:00 EST, Dry Weight Start Date: 07/01/23 Status: Ordered metFORMIN 500 mg oral tablet 1 tablet = 500 mg, By Mouth, 2 times a day, # 60 tablet, 5 Refills, Maintenance, 07/07/23 15:26:00 EST, Tablet, [facility], Partial fill upon patient request if the prescription is for a schedule II opioid drug., 160, cm, 07/07/23 15:02:00 EST... Start Date: 07/07/23 Stop Date: 01/03/24 Status: Ordered nicotine 21 mg/24 hr transdermal film, extended release 1 patch, Topically, Daily, # 28 patch, 3 Refills, Maintenance, 09/14/23 15:41:00 EST, [facility], 28, APPLY 1 PATCH TOPICALLY DAILY, [...] tablet, 5 Refills, Maintenance, 08/19/23 10:06:00 EST, [facility], 160, cm, 07/07/23 15:02:00 EST, Height, 112.4, kg, 06/24/23 17:38:00 EST,Dry Weight Start Date: 08/19/23 Status: Ordered Rhinocort Allergy 32 mcg/inh nasal spray 2 sprays = 64 mcg, Nares, Both, Daily, # 8.43 mL, 5 Refills, Maintenance, 11/12/23 13:55:00 EDT, [place], [facility], Partial fill upon patient request if the prescription is for a schedule II opioid drug., 160, cm, 11/12/23 13:36:00 EDT, Height... Start Date: 11/12/23 Status: Ordered rOPINIRole 0.5 mg oral tablet 1 tablet, By Mouth, 3 times a day, ^1R1,1R3,1R4., # 90 tablet, 5 Refills, Maintenance, 10/11/23 20:09:00 EDT, [facility], 160, cm, 07/07/23 15:02:00 EST, Height, 112.4, kg, 06/24/23 17:38:00 EST, Dry Weight Start Date: 10/11/23 Status: Ordered rosuvastatin 10 mg oral tablet 1 tablet, By Mouth, Daily, ^1R1., # 30 tablet, 5 Refills, Maintenance, 07/01/23 14:33:00 EST, [facility], 160, cm, 06/26/23 11:21:00 EST, Height, 112.4, kg, 06/24/23 17:38:00 EST, Dry Weight Start Date: 07/01/23 Status: Ordered Symbicort 160mcg/4.5mcg Inhaler 2, puffs, Inhalation, 2 times a day, # 10.2 Gm, Refills 11, Tot. Refills 11, Maintenance, 06/03/23 11:47:00 EST, Aerosol, Route to Pharmacy Electronically, [id number], [facility], 160, cm, 06/03/23 11:30:00 EST, Height, 98.8, kg, ... Start Date: 06/03/23 Status: Ordered tiZANidine 4 mg oral capsule 1 capsule = 4 mg, By Mouth, 3 times a day, PRN Spasm, can increae to 2 at a time if needed, # 90 capsule, 2 Refills, Maintenance, 11/12/23 14:03:00 EDT, Capsule, [facility], Partial fill uponpatient request if the [...] 30 tablet, 5 Refills, Maintenance, 10/26/23 10:04:00 EDT,[facility], 160, cm, 10/16/23 10:41:00 EDT, Height, [...] Confirmed Active Gastric banding status Confirmed Active skilled nursing current use of opiate analgesic Confirmed Active [...] Chronic obstructive pulmonary disease (COPD) Discharge Diagnosis 11/11/23 Bipolar disorder NOS Discharge Diagnosis 11/11/23 Type 2 diabetes mellitus with hyperglycemia Discharge Diagnosis 11/11/23 Paroxysmal atrial flutter Discharge Diagnosis 11/11/23 Chronic deep vein thrombosis (DVT) Discharge Diagnosis 11/11/23 Congestive heart failure Discharge Diagnosis 11/11/23 Severe obesity Discharge Diagnosis 11/11/23 Rhinitis Discharge Diagnosis 11/12/23 Epistaxis Discharge Diagnosis 11/12/23 Low back pain Discharge Diagnosis 11/12/23 Tension headache Discharge Diagnosis 11/12/23 Vital Signs Most recent to oldest [Reference Range]: 1 Height 160 cm (11/12/23 1:36 PM) Weight 114.2 kg (11/12/23 1:36 PM) Oxygen Saturation [94-100 %] 95 % (11/12/23 1:36 PM) Pulse Rate [55-90 bpm] 82 bpm (11/12/23 1:36 PM) Body Mass Index [18.5-24.99 kg/m2] 44.61 kg/m2 *>HHI* (11/12/23 1:36 PM) Blood Pressure [90-138/55-84 mm Hg] 124/ 71mm Hg (11/12/23 1:36 PM) Respiratory Rate [16-30 br/min] 20 br/mi n (11/12/23 1:36 PM) Temperature [96.8-100.4 DegF] 97.6 DegF (11/12/23 1:36 PM) Mode of Delivery (Oxygen) Room air (11/12/23 1:36 PM) Blood pressure sites Arm, left (11/12/23 1:36 PM) Temperature Route Oral (11/12/23 1:36 PM) Weight Obtained Via Standing scale (11/12/23 1:36 PM) Social History Social History Type Response Smoking Status Current every day [employer] [employer]; Type: Cigarettes; Other: 1 pack daily; entered on: 04/19/18 Sex Female Patient Care team information Care Team Personnel Name: Sandra Wills NP Position: [facility] Associate Professional Member Role: Primary Care Nurse Address: Address: [address] [place] [address] [place] [address]- [place] Name: Marley Alejo RN Position: [facility] RN Member Role: Primary Care Nurse Name: Rashi Dewitt RN Position: [facility] RN Member Role: Primary Care Nurse Name: Alma Delia Fonseca PharmD Position: [facility] Associate Professional Member Role: Lifetime Consulting Provider Address: Address: [address] [place] [address] [place] [address]- [place] Name: Priscila Garzon RN Position: [facility] RN Member Role: Primary Care Nurse Name: Kyle Ahumada DO Position: [facility] Physician - Primary Care Member Role: PCP Address: Address: [address] [place] [address]- [place] Name: Renea Mart RN Position: [facility] RN Member Role: Primary Care Nurse Care Team Related Persons Name: FAUZIA JANSEN Address: home [address] [place] [address] Name: AURELIA SHETH Address: home [address] [place] [address] Name: BRE OSORIO Address: home [address] [place] [id number]
--- OUTSIDE RECORDS SUMMARY | 2024-01-02 21:20 | XMS_ITS | Continuity of Care Document ---
Author Organization [facility] Robin Jane Nolberto lt Address [address] [place] [address]- Care Team Providers Care Senior Adults Director Name Role Phone Radha GRIDER, Fuentes Kenny Primary Care Physician Encounter [facility] Date(s): 04/17/20 - 05/17/20 [facility] Adult [address] [place] [address]- [facility] Allergies, Adverse Reactions, Alerts Substance Reaction [...] H1N1, inactive(oldterm) 8 05/08/11 Given 1Result Comment: [id number] 2Result Comment: [id number] 3Result Comment: [07/08/2017] [id number] 4Admin Note: [facility] 5Admin Note: [facility] [...] 12/06/19 9:16:00 EDT, Route to Pharmacy Electronically, [facility] #[id number], please schedule appt for further refills, 162, cm, 09/21/19 12:01:00 EST, Laurie... Start Date: 12/06/19 Status: Ordered clindamycin 150 mg oral capsule 2 capsule = 300 mg, By Mouth, Every 8 hours, for 10 days, take with an over the counter probiotic, # 60 capsule, 0 Refills, Acute 05/26/20 15:06:00 EDT, 05/16/20 15:06:00 EDT, Capsule, [facility] #[id number], 165, cm, 05/16/20 14:15:00 EDT, [place]as... Start Date: 05/16/20 Stop Date: 05/26/20 Status: Ordered colchicine 0.6 mg oral tablet See Instructions, take 1 tablet by mouth once daily if needed for PSEUDOGOUT pain, # 30 tablet, Refills 5, Tot. Refills 5, Soft Stop, 01/05/20 8:41:00 EDT, Instructions Replace Required Details, Route to Pharmacy Electronically, [facility] #... Start Date: 01/05/20 Status: Ordered [...] Gm, 1 Refills, Maintenance, 12/20/19 16:30:00 EDT, [facility] #[id number], 162, cm, 09/21/19 12:01:00 EST, Height, 116.4, [...] mL, 5 Refills, Maintenance, 10/01/18 10:08:42 EST, [place], 2 sprays Nares, Both 2 times a [...] 03/22/20 16:34:00 EDT, Route to Pharmacy Electronically, [facility] #[id number], 165, cm, 02/02/2014:39:00 EDT, Height, 127, kg, [...] 0 Refills, Maintenance, 04/23/20 12:56:00 EDT, Tablet, [facility] #[id number], 04/24/20, 165, cm, 02/03/20 14:39:00 EDT, He... [...] 5 Refills, Maintenance, 04/30/20 15:13:00 EDT, Tablet, [facility] #[id number], 165, cm, 04/30/20 14:30:00 EDT, Height, 127, kg, 02/03/20 14:39:00 EDT, Dry Weight Start Date: 04/30/20 Status: Ordered rosuvastatin 10 mg oral tablet 1 tablet = 10 mg, By Mouth, Daily, # 90 tablet, 3 Refills, Maintenance, 05/03/20 16:35:00 EDT, Tablet, [facility] #[id number], d/c rx for capsules, 165, cm, 04/30/20 14:30:00 EDT, Height, 127, kg, 02/03/20 14:39:00 EDT, Dry Weight Start Date: 05/03/20 Status: Ordered Ventolin HFA 108 mcg/inh inhalation aerosol with adapter 2 puffs, Inhalation, Every 4 hours, PRN Wheezing/Shortness of Breath, # 1 each, 11 Refills, Soft Stop, 01/19/20 11:46:00 EDT, [facility] #[id number], 165, cm, 01/16/20 6:17:00 EDT, Height, 128.1, kg, 01/16/20 6:17:00 EDT, Dry Weight Start Date: 01/19/20 Status: Ordered warfarin 5 mg oral tablet 1 tablet = 5 mg, By Mouth, Daily, dosing subject to change pending inr lab values, # 30 tablet, 5 Refills, Maintenance, 02/15/20 13:21:00 EDT, Tablet, [facility] #[id number], 165, cm, 02/03/20 14:39:00 EDT, Height, 127, [...] long-term use(Confirmed) Active Gastric banding status(Confirmed) Active half-way current use of 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
--- OUTSIDE RECORDS SUMMARY | 2024-01-02 21:20 | XMS_ITS | Continuity of Care Document ---
Author Organization [facility] Buck Nolberto Address [address] [place] [address]- Care Team Providers Care Shovel Operator Name Role Phone Krishan GRIDER, Eulogio Molina Primary Care Physician Encounter [facility] Date(s): 09/09/21 - 10/09/21 [facility] Adult [address] [place] [address]- Allergies, Adverse Reactions, Alerts Substance Reaction Severity Status Adhesive Bandage Active Dust copd exac/sinus congestion A ctive Immunizations Given and Recorded Vaccine Date Status Refusal Reason SARS-CoV-2 mRNA (zldbbot-[id number]) vax 08/30/21 Recorded influenza virus vaccine, inactivated [...] B adult vaccine 06/14/02 Recorded 1Result Comment: [id number] 2Result Comment: [id number] 3Result Comment: [id number] 4Result Comment: [07/08/2017] [id number] 5Admin Note: [facility] 6Admin Note: [facility] [...] 8.5 Gm, 5 Refills, 05/29/21 17:13:00 EDT, [facility] #[id number], 17, INHALE 2 PUFFS BY MOUTH EVERY 4 HOURS NEEDED FOR WHEEZING OR SHORTNE... Start Date: 05/29/21 Status: Ordered calcipotriene 0.005% topical cream 1 application, Topically, 2 times a day, # 60 Gm, 11 Refills, Maintenance, 10/31/20 14:14:00 EDT, Cream, [facility] #[id number], Partial fill upon patient request if the prescription is for a schedule II opioid drug., 1 application Topically 2 ti... Start Date: 10/31/20 Status: Ordered chlorthalidone 25 mg oral tablet 1, tablet, By Mouth, Daily, # 90 tablet, Refills 3, [facility] Pharm[facility], [facility], 165, cm, 06/25/21 11:35:00 EST, Height, [...] 11 Refills, Maintenance, 06/25/21 12:00:00 EST, Capsule, [facility], Partial fill upon patient request if [...] Gm, 3 Refills, Maintenance, 06/22/20 14:58:00 EST, [facility] #[id number], 165, cm, 06/07/20 13:52:00 EST, Height, 127, [...] Replace Required Details, Route to Pharmacy Electronically, [facility], [place]... Start Date: 09/05/21 Status: Ordered HydrOXYzine PRn , rare use, 0 Refills, Maintenance, 04/30/20 15:04:00 EDT Start Date: 04/30/20 Status: Ordered ipratropium nasal 21 mcg/inh spray 2 sprays, Nares, Both, 2 times a day, # 30 mL, 5 Refills, Maintenance, 10/01/18 10:08:42 EST, [place], 2 sprays Nares, Both 2 times a [...] Replace Required Details, Route to Pharmacy Electronically, [facility], 165, cm, 06/25/21 11:35:00 EST, [...] tablet, 6Refills, Maintenance, 05/21/21 11:19:00 EDT, Tablet, [facility], Partial fill upon patient request if the prescription is for a schedule II... Start Date: 05/21/21 Status: Ordered methenamine hippurate 1 gm oral tablet 1 tablet = 1 Gm, By Mouth, 2 times a day, # 60 tablet, 11 Refills, Maintenance, 07/05/21 14:00:00 EST, [facility], Partial fill upon patient request if the prescription is for a schedule II opioid drug., 165, cm, 02/28/21 14:22:00 EDT, Height,... Start Date: 07/05/21 Status: Ordered Mitigare 0.6 mg oral capsule 1 capsule, By Mouth, Daily, # 30 capsule, 11 Refills, Maintenance, 12/31/20 16:51:00 EDT, [facility][id number], 165, cm, 11/19/20 11:32:00 EDT, Height, 127, kg, 02/03/20 14:39:00 EDT, Dry Weight Start Date: 12/31/20 Status: Ordered penicillin V potassium 250 mg oral tablet 1 tablet = 250 mg, By Mouth, 2 times a day, Cellulitis prophylaxis, # 60 tablet, 11 Refills, Maintenance, 10/30/20 12:09:00 EDT, [facility] #[id number], 165, cm, 10/19/20 8:59:00 EDT, Height, 127, kg, 02/03/20 14:39:00 EDT, Dry Weight Start Date: 10/30/20 Status: Ordered propranolol 20 mg oral tablet 20 mg, 1, tablet, By Mouth, 2 times a day, Stop metoprolol, # 60 tablet, Refills 5, Tot. Refills 5,Maintenance, 09/05/21 6:13:00 EST, Route to Pharmacy Electronically, [facility], Partial fill upon patient request if the prescription is for a... Start Date: 09/05/21 Status: Ordered risperiDONE 1 mg oral tablet take 1 tablet by mouth twice a day Start Date: 05/23/19 Status: Ordered rOPINIRole 0.5 mg oral tablet 1 tablet, By Mouth, 3 times a day, # 90 tablet, 3 Refills, [facility], 165, cm, 06/25/21 11:35:00 EST, Height, 127, kg, 02/03/20 14:39:00 EDT, Dry Weight Start Date: 07/09/21 Status: Ordered rosuvastatin 10 mg oral tablet 1 tablet = 10 mg, By Mouth, Daily, # 90 tablet, 1 Refills, Maintenance, 05/20/21 15:53:00 EDT, Tablet, [facility], d/c rx for capsules, 165, [...] 6 Refills, Maintenance, 06/12/21 17:09:00 EST, Tablet, [facility], Dosing Subject To Change per INR Result per MD,165, cm, 05/21/21 10:54:00 EDT, Height, 127, kg, 07... Start Date: 06/12/21 Status: Ordered warfarin 5 mg oral tablet See Instructions, Dosing Subject To Change Per INR Result per MD, # 30 each, 6 Refills, Maintenance, 06/12/21 17:05:00 EST, Tablet, [facility], PLEASE GIVE BOTH 5MG TABLETS AND [...]
--- OUTSIDE RECORDS SUMMARY | 2024-01-02 21:20 | XMS_ITS | Continuity of Care Document ---
Author Organization [facility] Address [address] [place] [address], [address] [place] [address]- Care Team Providers Care Telemarketing Fundraiser Name Role Phone Krishan GRIDER, Eulogio Molina Primary Care Physician [phone] Encounter [facility] [place] [place] Date(s): 09/09/22 - 10/09/22 [facility] [address] [place] [address] Drive, [address] [place], [place] [address] Attending Physician: Desire Velasquez Admitting Physician: AdmDesire andre Referring Physician: Admtr, [id number] Allergies, Adverse Reactions, [...] vaccine, inactivated 05/10/07 Jarrett rded SARS-CoV-2 mRNA ([id number]) vax 08/30/21 Recorded SARS-CoV-2 (COVID-19) mRNA BNT-162b2 vac 01/02/21 Recorded SARS-CoV-2 (COVID-19) mRNA BNT-162b2 vac 12/02/20 Recorded Fluvirin (oldterm) 8 03/22/15 Given Fluzone Preservative-Free (oldterm) 9 03/12/12 Giv en pneumococcal 23-valent vaccine 10/08/11 Given tetanus/diphtheria/pertussis, acel(Tdap) 09/08/11 Given tetanus/diphtheria/pertussis, acel(Tdap) 12/17/06 Recorded influ virus vac, H1N1, inactive(oldterm) 10 05/08/11 Given hepatitis B adult vaccine 06/14/02 Recorded 1Result Comment: [id number] 2Result Comment: [id number] 3Result Comment: [id number] 4Result Comment: [id number] 5Result Comment: [07/08/2017] [id number] 6Admin Note: [facility] 7Admin Note: [facility] [...] Gm, 4 Refills, Maintenance, 09/08/22 14:55:00 EST, [facility], 30, INHALE 2 PUFFS BY MOUTH EVERY FOUR HOURS NEEDED FOR WHEEZING... Start Date: 09/08/22 Status: Ordered cloNIDine 0.1 mg oral tablet 1, tablet, By Mouth, 2 times a day, PRN, # 56 tablet, Refills 2, Maintenance, NEEDED FOR FOR ANXIETY (VIAL) ^VIAL, 10/03/22 11:23:00 EST, Route to Pharmacy Electronically, [facility], 160,cm, 02/14/23 14:31:00 EST, Height, 98.8, kg, 07/17/... Start Date: 10/03/22 Status: Ordered colchicine 0.6 mg oral tablet 1, tablet, By Mouth, Daily, ^1R1., # 30 tablet, Refills 11, Maintenance, 09/10/22 5:31:00 EST, Route to Pharmacy Electronically, [facility], 160, cm, 09/09/22 14:31:00 EST, Height, 98.8, kg, 07/17/22 8:58:00 EST, Dry Weight Start Date: 09/10/22 Status: Ordered docusate sodium 100 mg oral capsule 100 mg, 1, capsule, By Mouth, 2 times a day, hold for loose stool, # 60 capsule, Refills 0, Tot. Refills 0, Maintenance, 01/11/22 7:25:00 EDT, Route to Pharmacy Electronically, [facility], Partial fill upon patient request if the prescri... Start Date: 01/11/22 Stop Date: 02/10/22 Status: Ordered duloxetine 20 mg oral enteric coated capsule 2 capsule = 40 mg, By Mouth, Daily at bedtime, # 60 capsule, 11 Refills, Maintenance, 06/25/21 12:00:00 EST, Capsule, [facility], Partial fill upon patient [...] 07/17/22 17:07:00 EST, Route to Pharmacy Electronically, [facility], 160, cm, 07/17/22 12:03:00 EST, [...] 5 Refills, Maintenance, 07/29/22 6:50:00 EST, Tablet, [facility], Partial fill upon patient [...] tablet, 0 Refills, Maintenance, 09/04/22 16:29:00 EST, [facility], Partial fill upon patient request if the prescription is for a schedule II opioid drug., 160, cm, 09/04/22 16:17:00 EST, Height, 98.8, k... Start Date: 09/04/22 Status: Ordered rOPINIRole 0.5 mg oral tablet See Instructions, TAKE 1 TABLET BY MOUTH THREE TIMES DAILY^1R1,1R3,1R4, # 90 tablet, 5 Refills, Maintenance, 07/24/22 23:41:00 EST, [facility], 160, cm, 07/18/22 11:39:00 EST, Height, 98.8, kg, 07/17/22 8:58:00 EST, Dry Weight Start Date: 07/24/22 Status: Ordered rosuvastatin 10 mg oral tablet 1 tablet, By Mouth, Daily, ^1R1., # 30 tablet, 5 Refills, Maintenance, 09/10/22 5:31:00 EST, [facility], 160, cm, 09/09/22 14:31:00 EST, Height, 98.8, kg, 07/17/22 8:58:00 EST, Dry Weight Start Date: 09/10/22 Status: Ordered Symbicort 80mcg/4.5mcg Inhaler See Instructions, INHALE 2 PUFFS BY MOUTH TWICE A DAY RINSE MOUTH AND THROAT AFTER USE, # 10.2 Gm, Refills 5, Maintenance, 07/30/22 21:16:00 EST, Instructions Replace Required Details, Route to Pharmacy Electronically, [id number], [facility]... 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 Confirmed Active [...] Team Personnel Name: Sandra Wills NP Position: [facility] Associate Professional Member Role: Primary Care Nurse Address: Address: [address] [place] [address] [place] [address]- [place] Name: Marley Alejo RN Position: [facility] RN Member Role: Primary Care Nurse Name: Eulogio Nickerson MD Position: [facility] Primary Care Physician Member Role: PCP Address: Address: [address] [place] [address]- [place] Name: Alma Delia Fonseca PharmD Position: [facility] Associate Professional Member Role: Lifetime Consulting Provider Address: Address: [address] [facility] [place] [address]- [place] Name: Yolis Mattson RN Position: [facility] RN Member Role: Primary Care Nurse Name: Priscila Garzon RN Position: [facility] RN Member Role: Primary Care Nurse Name: Renea Mart RN Position: [facility] RN Member Role: Primary Care Nurse Care Team Related Persons Name: FAUZIA JANSEN Address: home [address] [place] [address] Name: AURELIA SHETH Address: [address] [place] [address] Name: BRE OSORIO Address: home [address] [place] [address]
--- OUTSIDE RECORDS SUMMARY | 2024-01-02 21:20 | XMS_ITS | Continuity of Care Document ---
Author Organization [facility] Address [address] [place] [address]- Care Team Providers Care Tinsel Machine Operator Name Role Phone Radha GRIDER, Fuentes Kenny Primary Care Physician [facility]counter [facility] Date(s): 06/12/21 - 07/12/21 [facility] Bolañosley Adult [address] [place] [address]- Allergies, Adverse Reactions, Alerts Substance Reaction Severity [...] B adult vaccine 06/14/02 Recorded 1Result Comment: [id number] 2Result Comment: [id number] 3Result Comment: [id number] 4Result Comment: [07/08/2017] [id number] 5Admin Note: [facility] 6Admin Note: [facility] [...] 8.5 Gm, 5 Refills, 05/29/21 17:13:00 EDT, [facility] #[id number], 17, INHALE 2 PUFFS BY MOUTH EVERY [...] 11 Refills, Maintenance, 10/31/20 14:14:00 EDT, Cream, [facility] #[id number], Partial fill upon patient request if the [...] tablet, Refills 3, Route to Pharmacy Electronically, [facility], 165, cm, 06/25/21 11:35:00 EST, Height, [...] PMR, history of smoking fax to : [phone], 04... Start Date: 10/26/20 Status: Ordered Disposable [...] 11 Refills, Maintenance, 06/25/21 12:00:00 EST, Capsule, [facility], Partial fill upon patient request if [...] Gm, 3 Refills, Maintenance, 06/22/20 14:58:00 EST, [facility] #[id number], 165, cm, 06/07/20 13:52:00 EST, Height, 127, [...] Refills, Maintenance, 05/24/21 16:13:00 EDT, REC Powder, [facility] #[id number], Partial fill upon patient request if the [...] mL, 5 Refills, Maintenance, 10/01/18 10:08:42 EST, [place], 2 sprays Nares, Both 2 times a [...] 08/02/20 16:13:00 EST, Route to Pharmacy Electronically, [facility] #[id number], D/C RX ON FILE FOR ABRAM, 165, [...] tablet, 6Refills, Maintenance, 05/21/21 11:19:00 EDT, Tablet, [facility], Partial fill upon patient request if the prescription is for a schedule II... Start Date: 05/21/21 Status: Ordered methenamine hippurate 1 gm oral tablet 1 tablet = 1 Gm, By Mouth, 2 times a day, # 60 tablet, 11 Refills, Maintenance, 07/05/21 14:00:00 EST, [facility], Partial fill upon patient request if the prescription is for a schedule II opioid drug., 165, cm, 02/28/21 14:22:00 EDT, Height,... Start Date: 07/05/21 Status: Ordered Metoprolol Tartrate 25 mg oral tablet 1 tablet, By Mouth, 2 times a day, # 60 tablet, 3 Refills, [facility], 165, cm, 06/25/21 11:35:00 EST, Height, 127, kg, 02/03/20 14:39:00 EDT, Dry Weight Start Date: 07/09/21 Status: Ordered Mitigare 0.6 mg oral capsule 1 capsule, By Mouth, Daily, # 30 capsule, 11 Refills, Maintenance, 12/31/20 16:51:00 EDT, [facility] #[id number], 165, cm, 11/19/20 11:32:00 EDT, Height, 127, [...] 0 Refills, Maintenance, 04/11/21 9:00:00 EDT, Patch, [facility], Partial fill upon patient request, 165, cm, 02/28/21 14:22:00 EDT, Height, 127, kg, 02/03/20 14:39:00 EDT, Dry Weight Start Date: 04/11/21 Stop Date: 05/23/21 Status: Ordered NuLYTELY with Flavor Packs oral powder for reconstitution See Instructions, Drink 240mL every 15-20 minutes until first half is gone. Repeat 6 hours prior toprocedure., # 4,000 mL, 0 Refills, Maintenance, 06/28/20 17:09:00 EST, [facility] #[id number],Partial fill upon patient request if the prescript... Start Date: 06/28/20 Status: Ordered oxyCODONE 10 mg oral tablet 1 tablet = 10 mg, By Mouth, Every 8 hours, DX Z79.891 G89.29 M47.816 OK TO FILL LESS THAN PRESCRIBED AMOUNT, # 84 tablet, 0 Refills, Maintenance, 06/13/21 17:00:00 EST, Tablet, [facility] #[id number], 06/18/21, 165, cm, 05/21/21 10:54:00 EDT, He... Start Date: 06/13/21 Stop Date: 07/11/21 Status: Ordered oxyCODONE 5 mg oral tablet 10 mg, 2, tablet, By Mouth, Every 8 hours, DX Z79.891 G89.29 M47.816 OK TO FILL LESS THAN PRESCRIBED AMOUNT, # 168 tablet, Refills 0, Tot. Refills 0, Maintenance, 03/25/21 16:45:00 EDT, Route to Pharmacy Electronically, [facility] #[id number], D... Start Date: 03/25/21 Stop Date: 04/22/21 Status: Ordered penicillin V potassium 250 mg oral tablet 1 tablet = 250 mg, By Mouth, 2 times a day, Cellulitis prophylaxis, # 60 tablet, 11 Refills, Maintenance, 10/30/20 12:09:00 EDT, [facility] #[id number], 165, cm, 10/19/20 8:59:00 EDT, Height, 127, kg, 02/03/20 14:39:00 EDT, Dry Weight Start Date: 10/30/20 Status: Ordered predniSONE 5 mg oral tablet 1 tablet = 5 mg, By Mouth, Daily, # 30 tablet, 0 Refills, Maintenance, 01/11/21 14:20:00 EDT, Tablet, [facility] #[id number], Partial fill upon patient request if the prescription is for a schedule II opioid drug., 165, cm, 01/11/21 14:05:00 EDT,... Start Date: 01/11/21 Status: Ordered propranolol 20 mg oral tablet 20 mg, 1, tablet, By Mouth, 2 times a day, # 60 tablet, Refills 5, Tot. Refills 5, Maintenance, 06/25/21 11:57:00 EST, [facility] [...] a day, # 90 tablet, 3 Refills, [facility], 165, cm, 06/25/21 11:35:00 EST, Height, 127, kg, 02/03/20 14:39:00 EDT, Dry Weight Start Date: 07/09/21 Status: Ordered rosuvastatin 10 mg oral tablet 1 tablet = 10 mg, By Mouth, Daily, # 90 tablet, 1 Refills, Maintenance, 05/20/21 15:53:00 EDT, Tablet, [facility], d/c rx for capsules, 165, cm, 02/28/21 14:22:00 EDT, Height, 127, kg, 02/03/20 14:39:00 EDT, Dry Weight Start Date: 05/20/21 Status: Ordered Trulicity Pen 0.75 mg/0.5 mL subcutaneous solution 0.5 mL = 0.75 mg, Subcutaneous Injection, Every week, take on same day every week, rotate injectionsites E11.9, # 2 mL, 1 Refills, Maintenance, 05/21/21 11:18:00 EDT, Solution, [facility] #[id number], Partial fill upon patient request if the... Start Date: 05/21/21 Status: Ordered warfarin 2.5 mg oral tablet See Instructions, Dosing Subject To Change per INR Result per MD, # 30 each, 6 Refills, Maintenance, 06/12/21 17:09:00 EST, Tablet, [facility], Dosing Subject To Change per INR Result per MD,165, cm, 05/21/21 10:54:00 EDT, Height, 127, kg, 07... Start Date: 06/12/21 Status: Ordered warfarin 5 mg oral tablet See Instructions, Dosing Subject To Change Per INR Result per MD, # 30 each, 6 Refills, Maintenance, 06/12/21 17:05:00 EST, Tablet, [facility], PLEASE GIVE BOTH 5MG TABLETS AND [...]
--- OUTSIDE RECORDS SUMMARY | 2024-01-02 21:20 | XMS_ITS | Continuity of Care Document ---
Author Organization [facility] Address [address] [place] [address]- Care Team Providers Care Evaluator Transfer Students Name Role Phone Fuentes Garcia MD Primary Care Physician [facility]counter [facility] Date(s): 01/15/21 - 05/15/21 [facility] Adult [address] [place] [address]- Attending Physician: Fuentes Garcia MD Allergies, Adverse [...] B adult vaccine 06/14/02 Recorded 1Result Comment: [id number] 2Result Comment: [id number] 3Result Comment: [07/08/2017] [id number] 4Admin Note: [facility] 5Admin Note: [facility] [...] OF BREATH, # 8.5 Gm, 5 Refills, [facility], 17, INHALE 2 PUFFS BY MOUTH EVERY 4 HOURS NEEDED FORWHEEZING OR SHORTNESS OF BREATH, 165, cm, 02/28/21... Start Date: 05/14/21 Status: Ordered BATHROOM SCALE BATHROOM SCALE, See [...] 11 Refills, Maintenance, 10/31/20 14:14:00 EDT, Cream, [facility] #[id number], Partial fill upon patient request if the [...] 04/09/21 14:32:00 EDT, Route to Pharmacy Electronically, [facility], 165, cm, 02/28/21 14:22:00 EDT, Height, [...] PMR, history of smoking fax to : [phone], 04... Start Date: 10/26/20 Status: Ordered Disposable [...] Gm, 3 Refills, Maintenance, 06/22/20 14:58:00 EST, [facility] #[id number], 165, cm, 06/07/20 13:52:00 EST, Height, 127, [...] mL, 5 Refills, Maintenance, 10/01/18 10:08:42 EST, [place], 2 sprays Nares, Both 2 times a [...] 08/02/20 16:13:00 EST, Route to Pharmacy Electronically, [facility] #[id number], D/C RX ON FILE FOR ABRAM, 165, [...] 3 Refills, Maintenance, 02/25/21 10:31:00 EDT, Tablet, [facility] #[id number], Partial fill upon patient request if the prescription is for a schedule II opioid drug., 165, cm, 01/11/21 14:... Start Date: 02/25/21 Status: Ordered methenamine hippurate 1 gm oral tablet 1 tablet = 1 Gm, By Mouth, 2 times a day, # 60 tablet, 1 Refills, Maintenance, 07/12/20 13:56:00 EST, [facility] #76343, Partial fill upon patient request if the prescription is for a schedule II opioid drug., 165, cm, 07/11/20 15:24:00 EST,... Start Date: 07/12/20 Stop Date: 07/05/21 Status: Ordered Metoprolol Tartrate 25 mg oral tablet 1 tablet, By Mouth, 2 times a day, # 60 tablet, 2 Refills, Maintenance, 03/07/21 10:08:00 EDT, [facility] #[id number], 165, cm, 02/28/21 14:22:00 EDT, Height, 127, kg, 02/03/20 14:39:00 EDT, DryWeight Start Date: 03/07/21 Status: Ordered Mitigare 0.6 mg oral capsule 1 capsule, By Mouth, Daily, # 30 capsule, 11 Refills, Maintenance, 12/31/20 16:51:00 EDT, [facility] #[id number], 165, cm, 11/19/20 11:32:00 EDT, Height, 127, [...] 0 Refills, Maintenance, 04/11/21 9:00:00 EDT, Patch, [facility], Partial fill upon patient request, 165, cm, 02/28/21 14:22:00 EDT, Height, 127, kg, 02/03/20 14:39:00 EDT, Dry Weight Start Date: 04/11/21 Stop Date: 05/23/21 Status: Ordered NuLYTELY with Flavor Packs oral powder for reconstitution See Instructions, Drink 240mL every 15-20 minutes until first half is gone. Repeat 6 hours prior toprocedure., # 4,000 mL, 0 Refills, Maintenance, 06/28/20 17:09:00 EST, [facility] #[id number],Partial fill upon patient request if the prescript... Start Date: 06/28/20 Status: Ordered oxyCODONE 10 mg oral tablet 1 tablet = 10 mg, By Mouth, Every 8 hours, DX Z79.891 G89.29 M47.816 OK TO FILL LESS THAN PRESCRIBED AMOUNT, # 84 tablet, 0 Refills, Maintenance, 04/22/21 16:41:00 EDT, Tablet, [facility] #[id number], 165, cm, 02/28/21 14:22:00 EDT, Height, 127,... Start Date: 04/22/21 Stop Date: 05/20/21 Status: Ordered oxyCODONE 5 mg oral tablet 10 mg, 2, tablet, By Mouth, Every 8 hours, DX Z79.891 G89.29 M47.816 OK TO FILL LESS THAN PRESCRIBED AMOUNT, # 168 tablet, Refills 0, Tot. Refills 0, Maintenance, 03/25/21 16:45:00 EDT, Route to Pharmacy Electronically, [facility] #[id number], D... Start Date: 03/25/21 Stop Date: 04/22/21 Status: Ordered penicillin V potassium 250 mg oral tablet 1 tablet = 250 mg, By Mouth, 2 times a day, Cellulitis prophylaxis, # 60 tablet, 11 Refills, Maintenance, 10/30/20 12:09:00 EDT, [facility] #[id number], 165, cm, 10/19/20 8:59:00 EDT, Height, 127, kg, 02/03/20 14:39:00 EDT, Dry Weight Start Date: 10/30/20 Status: Ordered predniSONE 5 mg oral tablet 1 tablet = 5 mg, By Mouth, Daily, # 30 tablet, 0 Refills, Maintenance, 01/11/21 14:20:00 EDT, Tablet, [facility] #[id number], Partial fill upon patient request if the [...] 1 Refills, Maintenance, 04/09/21 14:31:00 EDT, Tablet, [facility], 165, cm, 02/28/21 14:22:00 EDT, Height, 127, kg, 02/03/20 14:39:00 EDT, Dry Weight Start Date: 04/09/21 Status: Ordered rosuvastatin 10 mg oral tablet 1 tablet = 10 mg, By Mouth, Daily, # 90 tablet, 3 Refills, Maintenance, 05/03/20 16:35:00 EDT, Tablet, [facility] #[id number], d/c rx for capsules, 165, cm, 04/30/20 14:30:00 EDT, Height, 127, kg, 02/03/20 14:39:00 EDT, Dry Weight Start Date: 05/03/20 Status: Ordered warfarin 2.5 mg oral tablet See Instructions, take 2.5mg sun tues thurs sat subjet to change based on INR per MD, # 90 each, 3 Refills, Maintenance, 02/11/21 10:38:00 EDT, Tablet, [facility] #[id number], PLEASE GIVE THIS IN COMBINATION WITH 5MG TABLETS;, 165, cm, 01/11/21... Start Date: 02/11/21 Status: Ordered warfarin 5 mg oral tablet 1 tablet = 5 mg, By Mouth, Daily, dosing subject to change pending inr lab values TAKE thu,# 90 tablet, 11 Refills, Maintenance, 02/11/21 10:42:00 EDT, Tablet, [facility] #[id number], PLEASE GIVE BOTH 5MG TABLETS AND 2.5MG [...]
--- OUTSIDE RECORDS SUMMARY | 2024-01-02 21:20 | XMS_ITS | Continuity of Care Document ---
Author Organization [facility] Address [address] [place] [address] ruthann, [address] [place] [address]- Care Team Providers Care Farm Equipment Service Technician Name Role Phone Krishan GRIDER, Eulogio Molina Primary Care Physician Encounter [facility] Date(s): 12/16/22 - 01/15/23 [facility] [address] [place] [address] Drive, [address] [place], [place] [address] Attending Physician: Desire Velasquez Admitting Physician: AdmDesire [...] vaccine, inactivated 05/10/07 Jarrett rded SARS-CoV-2 mRNA ([id number]) vax 08/30/21 Recorded SARS-CoV-2 (COVID-19) mRNA BNT-162b2 vac 01/02/21 Recorded SARS-CoV-2 (COVID-19) mRNA BNT-162b2 vac 12/02/20 Recorded Fluvirin (oldterm) 8 03/22/15 Given Fluzone Preservative-Free (oldterm) 9 03/12/12 Giv en pneumococcal 23-valent vaccine 10/08/11 Given tetanus/diphtheria/pertussis, acel(Tdap) 09/08/11 Given tetanus/diphtheria/pertussis, acel(Tdap) 12/17/06 Recorded influ virus vac, H1N1, inactive(oldterm) 10 05/08/11 Given hepatitis B adult vaccine 06/14/02 Recorded 1Result Comment: [id number] 2Result Comment: [id number] 3Result Comment: [id number] 4Result Comment: [id number] 5Result Comment: [07/08/2017] [id number] 6Admin Note: [facility] 7Admin Note: [facility] [...] Gm, 4 Refills, Maintenance, 09/08/22 14:55:00 EST, [facility], 30, INHALE 2 PUFFS BY MOUTH EVERY FOUR HOURS NEEDED FOR WHEEZING... Start Date: 09/08/22 Status: Ordered cloNIDine 0.1 mg oral tablet 1, tablet, By Mouth, 2 times a day, PRN, # 56 tablet, Refills 2, Maintenance, NEEDED FOR FOR ANXIETY (VIAL) ^VIAL, 10/03/22 11:23:00 EST, Route to Pharmacy Electronically, [facility], 160,cm, 02/14/23 14:31:00 EST, Height, 98.8, kg, 07/17/... Start Date: 10/03/22 Status: Ordered colchicine 0.6 mg oral tablet 1, tablet, By Mouth, Daily, ^1R1., # 30 tablet, Refills 11, Maintenance, 09/10/22 5:31:00 EST, Route to Pharmacy Electronically, [facility], 160, cm, 09/09/22 14:31:00 EST, Height, 98.8, kg, 07/17/22 8:58:00 EST, Dry Weight Start Date: 09/10/22 Status: Ordered docusate sodium 100 mg oral capsule 100 mg, 1, capsule, By Mouth, 2 times a day, hold for loose stool, # 60 capsule, Refills 0, Tot. Refills 0, Maintenance, 01/11/22 7:25:00 EDT, Route to Pharmacy Electronically, [facility], Partial fill upon patient request if the prescri... Start Date: 01/11/22 Stop Date: 02/10/22 Status: Ordered duloxetine 20 mg oral enteric coated capsule 2 capsule = 40 mg, By Mouth, Daily at bedtime, # 60 capsule, 11 Refills, Maintenance, 06/25/21 12:00:00 EST, Capsule, [facility], Partial fill upon patient request [...] Acute 03/16/23 6:08:00 EDT, 10/14/22 6:08:00 EDT, [place] #[id number], Partial fill upon patient request if the [...] 11/06/22 6:52:00 EDT, Route to Pharmacy Electronically, [facility], 160, cm, 10/13/22 16:25:00 EDT, [...] Ordered Multaq 400 mg oral tablet 1 tablet, By Mouth, 2 times a day, ^1R1,1R4., # 56 tablet, 5 Refills, Maintenance, 01/01/23 17:36:00 EDT, [facility], 160, cm, 12/16/22 10:46:00 EDT, Height, 98.8, kg, 07/17/22 8:58:00 EST, Dry Weight Start Date: 01/01/23 Status: Ordered penicillin V potassium 250 mg oral tablet 1 tablet = 250 mg, By Mouth, 2 times a day, CELLULITIS PROPHYLAXIS, # 60 tablet, 5 Refills, Maintenance, 11/06/22 17:25:00 EDT, Tablet, [facility], Partial fill upon patient request if the prescription is for a schedule II opioid drug., 160, c... Start Date: 11/06/22 Stop Date: 05/05/23 Status: Ordered predniSONE 10 mg oral tablet 1 tablet, By Mouth, Daily, ^1R1., # 30 tablet, 2 Refills, Maintenance, 11/21/22 16:59:00 EDT, [facility], 160, cm, 10/13/22 16:25:00 EDT, Height, 98.8, kg, 07/17/22 8:58:00 EST, Dry Weight Start Date: 11/21/22 Status: Ordered rOPINIRole 0.5 mg oral tablet 1 tablet, By Mouth, 3 times a day, ^1R1,1R3,1R4., # 90 tablet, 5 Refills, Maintenance, 12/24/22 14:21:00 EDT, [facility], 160, cm, 12/16/22 10:46:00 EDT, Height, 98.8, kg, 07/17/22 8:58:00 EST, Dry Weight Start Date: 12/24/22 Status: Ordered rosuvastatin 10 mg oral tablet 1 tablet, By Mouth, Daily, ^1R1., # 30 tablet, 5 Refills, Maintenance, 09/10/22 5:31:00 EST, [facility], 160, cm, 09/09/22 14:31:00 EST, Height, 98.8, kg, 07/17/22 8:58:00 EST, Dry Weight Start Date: 09/10/22 Status: Ordered Symbicort 80mcg/4.5mcg Inhaler See Instructions, INHALE 2 PUFFS BY MOUTH TWICE A DAY RINSE MOUTH AND THROAT AFTER USE, # 10.2 Gm, Refills 5, Maintenance, 07/30/22 21:16:00 EST, Instructions Replace Required Details, Route to Pharmacy Electronically, [id number], [facility]... Start Date: 07/30/22 Status: Ordered warfarin 2.5 mg oral tablet See Instructions, TAKE DIRECTED BY DOCTOR PER INR RESULT WEEKLY (VIAL)^VIAL, # 30 tablet, 6 Refills, Maintenance, 01/08/23 18:01:00 EDT, [facility], 160, cm, 12/16/22 10:46:00 EDT, Height,98.8, kg, 07/17/22 8:58:00 EST, Dry Weight Start Date: 01/08/23 Status: Ordered Problem List Condition Confirmation Course [...] Team Personnel Name: Sandra Wills NP Position: [facility] PCO Associate Professional Member Role: Primary Care Nurse Address: Address: [address] [place] [address] [place] [address]- [place] Name: Marley Alejo RN Position: [facility] RN Member Role: Primary Care Nurse Name: Eulogio Nickerson MD Position: [facility] Physician - Primary Care Member Role: PCP Address: Address: [address] [place] [address]- [place] Name: Alma Delia Fonseca PharmD Position: [facility] Associate Professional Member Role: Lifetime Consulting Provider Address: Address: [address] [place] [address] [place] [address]- [place] Name: Yolis Mattson RN Position: [facility] RN Member Role: Primary Care Nurse Name: Priscila Garzon RN Position: S RN Member Role: Primary Care Nurse Name: Renea Mart RN Position: S RN Member Role: Primary Care Nurse Care Team Related Persons Name: FAUZIA JANSEN Address: home [address] [place] [address] Name: AURELIA SHETH Address: [address] [place] [address] Name: BRE OSORIO Address: home [address] [place] [address]
--- OUTSIDE RECORDS SUMMARY | 2024-01-02 21:20 | XMS_ITS | Continuity of Care Document ---
Author Organization [facility] Address [address] [place] [address], [address] [place] [address]- Care Team Providers Care Sample Shoe Inspector And Reworker Name Role Phone Radha GRIDER, Fuentes Kenny Primary Care Physician [phone] Encounter [facility] Date(s): 02/03/20 - 03/04/20 [facility] [address] [facility], [address] [place] [address]- [facility] Attending Physician: Desire Velasquez Admitting Physician: Desire [...] H1N1, inactive(oldterm) 7 05/08/11 Given 1Result Comment: [id number] 2Result Comment: [07/08/2017] [id number] 3Admin Note: [facility] 4Admin Note: [facility] [...] 12/06/19 9:16:00 EDT, Route to Pharmacy Electronically, [email or web address] #[id number], please schedule appt for further refills, 162, cm, 09/21/19 12:01:00 [facility]. JUDIT.. Start Date: 12/06/19 Status: Ordered Claritin 10 mg oral tablet 10 mg, 1, tablet, By Mouth, Daily, for 30 days, # 30 tablet, Refills 11, Tot. Refills 11, Acute 05/11/20 17:36:41 EDT, 05/17/19 17:36:41 EDT, Route to Pharmacy Electronically, [id number], [facility] [address] [place] [address] Start Date: 05/17/19 Stop Date: 05/11/20 Status: Ordered colchicine 0.6 mg oral tablet See Instructions, take 1 tablet by mouth once daily if needed for PSEUDOGOUT pain, # 30 tablet, Refills 5, Tot. Refills 5, Soft Stop, 01/05/20 8:41:00 EDT, Instructions Replace Required Details, Route to Pharmacy Electronically, [email or web address] #... Start Date: 01/05/20 Status: Ordered Disposable [...] Gm, 1 Refills, Maintenance, 12/20/19 16:30:00 EDT, [facility] #[id number], 162, cm, 09/21/19 12:01:00 EST, Height, 116.4, [...] mL, 5 Refills, Maintenance, 10/01/18 10:08:42 EST, [place], 2 sprays Nares, Both 2 times [...] 09/28/19 11:53:00 EST, Route to Pharmacy Electronically, [email or web address] #[email or web address], 162, cm, 09/21/2011:01:00 EST, Height, 116.4, kg, [...] AMOUNT, # 84 tablet, 0 Refills, Maintenance, 02/27/20 16:58:00 EDT, Tablet, [email or web address] #[email or web address], 02/28/20, 165, cm, 02/03/20 14:39:00 EDT, He... Start Date: 02/27/20 Stop Date: 03/26/20 Status: Ordered penicillin V potassium 250 mg [...] 11 Refills, Soft Stop, 01/19/20 11:46:00 EDT, [facility] #[id number], 165, cm, 01/16/20 6:17:00 EDT, Height, 128.1, kg, 01/16/20 6:17:00 EDT, Dry Weight Start Date: 01/19/20 Status: Ordered warfarin 5 mg oral tablet 1 tablet = 5 mg, By Mouth, Daily, dosing subject to change pending inr lab values, # 30 tablet, 5 Refills, Maintenance, 02/15/20 13:21:00 EDT, Tablet, [email or web address] #[email or web address], 165, cm, 02/03/20 14:39:00 EDT, Height, 127, [...] use(Confirmed) Active Gastric banding status(Confirmed) Active intermediate frame tender current use of 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
--- OUTSIDE RECORDS SUMMARY | 2024-01-02 21:21 | XMS_ITS | Continuity of Care Document ---
Author Organization [facility] Robin Jane Nolberto lt Address [address] [place] [address]- Care Team Providers Care Patient Financial Counselor Name Role Phone Radha GRIDER, Fuentes Kenny Primary Care Physician [facility] Date[facility]s): 06[facility]15/20 - 07/15/20 [facility] [place] Adult [address] [place] [address]- Allergies, Adverse Reactions, Alerts Substance Reaction Severity [...] H1N1, inactive(oldterm) 8 05/08/11 Given 1Result Comment: [id number] 2Result Comment: [id number] 3Result Comment: [07/08/2017] 10649-768-23 4Admin Note: [facility] 5Admin Note: [facility] [...] 5 Refills, Maintenance, 07/03/20 9:16:00 EST, Cream, [facility] #[id number], Partial fill upon patient request if the [...] 06/04/20 12:56:00 EST, Route to Pharmacy Electronically, [facility] #[id number], please schedule appt for further refills, 165, cm, 05/16/20 14:15:00 EDT, Hei... Start Date: 06/04/20 Status: Ordered colchicine 0.6 mg oral tablet See Instructions, take 1 tablet by mouth once daily if needed for PSEUDOGOUT pain, # 30 tablet, Refills 5, Tot. Refills 5, Soft Stop, 01/05/20 8:41:00 EDT, Instructions Replace Required Details, Route to Pharmacy Electronically, [facility] #... Start Date: 01/05/20 Status: Ordered Disposable [...] Gm, 3 Refills, Maintenance, 06/22/20 14:58:00 EST, [facility] #[id number], 165, cm, 06/07/20 13:52:00 EST, Height, 127, [...] mL, 5 Refills, Maintenance, 10/01/18 10:08:42 EST, [place], 2 sprays Nares, Both 2 times a [...] tablet, 1 Refills, Maintenance, 07/12/20 13:56:00 EST, [facility] #[id number], Partial fill upon patient request if the prescription is for a schedule II opioid drug., 165, cm, 07/11/20 15:24:00 EST,... Start Date: 07/12/20 Stop Date: 07/05/21 Status: Ordered metoprolol 25 mg oral tablet 25 mg, 1, tablet, By Mouth, 2 times a day, # 60 tablet, Refills 5, Tot. Refills 5, Maintenance, 03/22/20 16:34:00 EDT, Route to Pharmacy Electronically, [facility] #[id number], 165, cm, 02/02/2014:39:00 EDT, Height, 127, kg, [...] 0 Refills, Maintenance, 06/18/20 16:57:00 EST, Patch, [facility] #[id number], Partial fill upon patient request, 165, cm, 06/07/20 13:52:00 EST, Height, 127, kg, 02/03/20 14:39:00 EDT, Dry Weight Start Date: 06/18/20 Stop Date: 07/30/20 Status: Ordered NuLYTELY with Flavor Packs oral powder for reconstitution See Instructions, Drink 240mL every 15-20 minutes until first half is gone. Repeat 6 hours prior toprocedure., # 4,000 mL, 0 Refills, Maintenance, 06/28/20 17:09:00 EST, [facility] #[id number],Partial fill upon patient request if the prescript... Start Date: 06/28/20 Status: Ordered oxyCODONE 10 mg oral tablet 1 tablet = 10 mg, By Mouth, Every 8 hours, DX Z79.891 G89.29 M47.816 OK TO FILL LESS THAN PRESCRIBED AMOUNT, # 84 tablet, 0 Refills, Maintenance, 06/18/20 12:44:00 EST, Tablet, [facility] #[id number], 06/19/20, 165, cm, 06/07/20 13:52:00 EST, He... [...] 5 Refills, Maintenance, 04/30/20 15:13:00 EDT, Tablet, [facility] #[id number], 165, cm, 04/30/20 14:30:00 EDT, Height, 127, kg, 02/03/20 14:39:00 EDT, Dry Weight Start Date: 04/30/20 Status: Ordered rosuvastatin 10 mg oral tablet 1 tablet = 10 mg, By Mouth, Daily, # 90 tablet, 3 Refills, Maintenance, 05/03/20 16:35:00 EDT, Tablet, [facility] #[id number], d/c rx for capsules, 165, cm, 04/30/20 14:30:00 EDT, Height, 127, kg, 02/03/20 14:39:00 EDT, Dry Weight Start Date: 05/03/20 Status: Ordered Ventolin HFA 108 mcg/inh inhalation aerosol with adapter 2 puffs, Inhalation, Every 4 hours, PRN Wheezing/Shortness of Breath, # 1 each, 11 Refills, Soft Stop, 01/19/20 11:46:00 EDT, [facility] #[id number], 165, cm, 01/16/20 6:17:00 EDT, Height, 128.1, kg, 01/16/20 6:17:00 EDT, Dry Weight Start Date: 01/19/20 Status: Ordered warfarin 5 mg oral tablet 1 tablet = 5 mg, By Mouth, Daily, dosing subject to change pending inr lab values, # 30 tablet, 5 Refills, Maintenance, 02/15/20 13:21:00 EDT, Tablet, [facility] #[id number], 165, cm, 02/03/20 14:39:00 EDT, Height, 127, [...]
--- OUTSIDE RECORDS SUMMARY | 2024-01-02 21:21 | XMS_ITS | Continuity of Care Document ---
Author Organization [facility] Nolberto Address [address] [place] [address]- Care Team Providers Care Peanut Separator Name Role Phone Fuentes Garcia MD Primary Care Physician Encounter [facility] Date(s): 01/11/21 - 01/18/21 [facility] Adult [address] [place] [address]- Encounter Diagnosis Bipolar disorder NOS(Discharge Diagnosis) - 01/11/21 Chronic obstructive pulmonary disease (COPD)(Discharge Diagnosis) - 01/11/21 DVT - Deep vein thrombosis, post surgical 2009, left leg(Discharge Diagnosis) - 01/11/21 Deep venous thrombosis - Recurrent, left leg, 2012.(Discharge Diagnosis) - 01/11/21 Hyperparathyroidism(Discharge Diagnosis) - 01/11/21 Paroxysmal atrial flutter(Discharge Diagnosis) - 01/11/21 PMR (polymyalgia rheumatica)(Discharge Diagnosis) - 01/11/21 Chronic pain syndrome(Discharge Diagnosis) - 01/11/21 roasterman current use of opiate analgesic(Discharge Diagnosis) - 01/11/21 Attending Physician: Fuentes Garcia MD Allergies, Adverse [...] B adult vaccine 06/14/02 Recorded 1Result Comment: [id number] 2Result Comment: [id number] 3Result Comment: [07/08/2017] [id number] 4Admin Note: [facility] 5Admin Note: [facility] [...] 11 Refills, Maintenance, 10/31/20 14:14:00 EDT, Cream, [facility] #[id number], Partial fill upon patient request if the [...] 11/27/20 10:09:00 EDT, Route to Pharmacy Electronically, [facility] #[id number], please schedule appt for further refills, 165, cm, 11/19/20 11:32:00 EDT, Hei... Start Date: 11/27/20 Status: Ordered Claritin 10 mg oral tablet 10 mg, 1, tablet, By Mouth, Daily, for 90 days, # 90 tablet, Refills 3, Tot. Refills 3, Acute 07/28/21 15:22:00 EST, 08/02/20 15:22:00 EST, Route to Pharmacy Electronically, [facility][id number], 165, cm, 07/31/20 14:32:00 EST, Height, 127, [...] PMR, history of smoking fax to : [phone], 04... Start Date: 10/26/20 Status: Ordered Disposable [...] Gm, 3 Refills, Maintenance, 06/22/20 14:58:00 EST, [facility] #[id number], 165, cm, 06/07/20 13:52:00 EST, Height, 127, [...] mL, 5 Refills, Maintenance, 10/01/18 10:08:42 EST, [place], 2 sprays Nares, Both 2 times a [...] 08/02/20 16:13:00 EST, Route to Pharmacy Electronically, [facility] #[id number], D/C RX ON FILE FOR CLARITAN, 165, [...] tablet, 1 Refills, Maintenance, 07/12/20 13:56:00 EST, [facility] #[id number], Partial fill upon patient request if the prescription is for a schedule II opioid drug., 165, cm, 07/11/20 15:24:00 EST,... Start Date: 07/12/20 Stop Date: 07/05/21 Status: Ordered metoprolol 25 mg oral tablet 25 mg, 1, tablet, By Mouth, 2 times a day, # 60 tablet, Refills 5, Tot. Refills 5, Maintenance, 09/22/20 13:59:00 EST, Route to Pharmacy Electronically, [facility] #[id number], 165, cm, 07/31/2113:32:00 EST, Height, 127, kg, 02/03/20 14:39:00 ED... Start Date: 09/22/20 Status: Ordered Mitigare 0.6 mg oral capsule 1 capsule, By Mouth, Daily, # 30 capsule, 11 Refills, Maintenance, 12/31/20 16:51:00 EDT, [facility] #[id number], 165, cm, 11/19/20 11:32:00 EDT, Height, 127, [...] 0 Refills, Maintenance, 06/18/20 16:57:00 EST, Patch, [facility] #[id number], Partial fill upon patient request, 165, cm, 06/07/20 13:52:00 EST, Height, 127, kg, 02/03/20 14:39:00 EDT, Dry Weight Start Date: 06/18/20 Stop Date: 07/30/20 Status: Ordered NuLYTELY with Flavor Packs oral powder for reconstitution See Instructions, Drink 240mL every 15-20 minutes until first half is gone. Repeat 6 hours prior toprocedure., # 4,000 mL, 0 Refills, Maintenance, 06/28/20 17:09:00 EST, [facility] #[id number],Partial fill upon patient request if the prescript... Start Date: 06/28/20 Status: Ordered oxyCODONE 10 mg oral tablet 1 tablet = 10 mg, By Mouth, Every 8 hours, DX Z79.891 G89.29 M47.816 OK TO FILL LESS THAN PRESCRIBED AMOUNT, # 84 tablet, 0 Refills, Maintenance, 12/31/20 16:45:00 EDT, Tablet, [facility] #[id number], 01/01/21, 165, cm, 11/19/20 11:32:00 EDT, He... Start Date: 12/31/20 Stop Date: 01/28/21 Status: Ordered penicillin V potassium 250 mg oral tablet 1 tablet = 250 mg, By Mouth, 2 times a day, Cellulitis prophylaxis, # 60 tablet, 11 Refills, Maintenance, 10/30/20 12:09:00 EDT, [facility] #[id number], 165, cm, 10/19/20 8:59:00 EDT, Height, 127, kg, 02/03/20 14:39:00 EDT, Dry Weight Start Date: 10/30/20 Status: Ordered predniSONE 5 mg oral tablet 1 tablet = 5 mg, By Mouth, Daily, # 30 tablet, 0 Refills, Maintenance, 01/11/21 14:20:00 EDT, Tablet, [facility] #[id number], Partial fill upon patient request if the [...] 5 Refills, Maintenance, 04/30/20 15:13:00 EDT, Tablet, [facility] #[id number], 165, cm, 04/30/20 14:30:00 EDT, Height, 127, kg, 02/03/20 14:39:00 EDT, Dry Weight Start Date: 04/30/20 Status: Ordered rosuvastatin 10 mg oral tablet 1 tablet = 10 mg, By Mouth, Daily, # 90 tablet, 3 Refills, Maintenance, 05/03/20 16:35:00 EDT, Tablet, [facility] #[id number], d/c rx for capsules, 165, cm, 04/30/20 14:30:00 EDT, Height, 127, kg, 02/03/20 14:39:00 EDT, Dry Weight Start Date: 05/03/20 Status: Ordered Ventolin HFA 108 mcg/inh inhalation aerosol with adapter 2 puffs, Inhalation, Every 4 hours, PRN Wheezing/Shortness of Breath, # 1 each, 5 Refills, Soft Stop, 11/08/20 8:46:00 EDT, [facility] #[id number], 165, cm, 10/19/20 8:59:00 EDT, Height, 127, kg, 02/03/20 14:39:00 EDT, Dry Weight Start Date: 11/08/20 Status: Ordered warfarin 5 mg oral tablet 1 tablet = 5 mg, By Mouth, Daily, dosing subject to change pending inr lab values, # 30 tablet, 11 Refills, Maintenance, 08/31/20 15:36:00 EST, Tablet, [facility] #[id number], 165, cm, 07/31/20 14:32:00 EST, Height, 127, [...] Service Informant Bipolar disorder NOS Discharge Diagnosis 01/11/21 Chronic obstructive pulmonary disease (COPD) Discharge Diagnosis 01/11/21 DVT - Deep vein thrombosis, post surgical 2009, left leg Discharge Diagnosis 01/11/21 Deep venous thrombosis - Recurrent, left leg, 2011. Discharge Diagnosis 01/11/21 Hyperparathyroidism Discharge Diagnosis 01/11/21 Paroxysmal atrial flutter Discharge Diagnosis 01/11/21 PMR (polymyalgia rheumatica) Discharge Diagnosis 01/11/21 Chronic pain syndrome Discharge Diagnosis 01/11/21 roasterman current use of opiate analgesic Discharge Diagnosis 01/11/21 Vital Signs Most recent to oldest [Reference Range]: 1 Height 165 cm (01/11/21 2:05 PM) Weight 129.5 kg (01/11/21 2:05 PM) Oxygen Saturation [94-100 %] 96 % (01/11/21 2:05 PM) Pulse Rate [55-90 bpm] 72 bpm (01/11/21 2:05 PM) Body Mass Index [18.5-24.99] 47.57 *>HHI* (01/11/21 2:05 PM) Blood Pressure [90-138/55-84 mm Hg] 116/ 64mm Hg (01/11/21 2:05 PM) Temperature [96.8-100.4 DegF] 98.0 DegF (01/11/21 2:05 PM) Mode of Delivery (Oxygen) Room air (01/11/21 2:05 PM) Blood pressure sites Arm, left (01/11/21 2:05 PM) Temperature Route Oral (01/11/21 2:05 PM) Weight Obtained Via Standing scale (01/11/21 2:05 PM) Social History Social History Type Response Smoking Status 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
--- OUTSIDE RECORDS SUMMARY | 2024-01-02 21:21 | XMS_ITS | Continuity of Care Document ---
Author Organization [facility] Robin Jane Nolberto Address [address] [place] [address]- Care Team Providers Care Director Learning Services Name Role Phone Kyle Ahumada DO Primary Care Physician [facility] Date[facility]s): 10/07[facility]23 - 11/06/23 [facility] Robin Bolañosley Adult [address] [place] [address]- Allergies, Adverse Reactions, Alerts Substance Reaction Severity [...] vaccine, inactivated 05/10/07 Jarrett rded SARS-CoV-2 mRNA ([id number]) vax 08/30/21 Recorded SARS-CoV-2 (COVID-19) mRNA BNT-162b2 vac 01/02/21 Recorded SARS-CoV-2 (COVID-19) mRNA BNT-162b2 vac 12/02/20 Recorded Fluvirin (oldterm) 10 03/22/15 Given Fluzone Preservative-Free (oldterm) 11 03/12/12 Gi octavio pneumococcal 23-valent vaccine 10/08/11 Given tetanus/diphtheria/pertussis, acel(Tdap) 09/08/11 Given tetanus/diphtheria/pertussis, acel(Tdap) 12/17/06 Recorded influ virus vac, H1N1, inactive(oldterm) 12 05/08/11 Given hepatitis B adult vaccine 06/14/02 Recorded 1Result Comment: PCV 20 [facility][NOTE 2]#[id number] 2Result Comment: Flu [facility][NOTE 2]#[id number] 3Result Comment: [id number] 4Result Comment: [id number] 5Result Comment: [id number] 6Result Comment: [id number] 7Result Comment: [07/08/2017] [id number] 8Admin Note: [facility] 9Admin Note: [facility] 9-13 10Admin Note: Given at [facility] 11Admin Note: 03-11-12 GIVEN AT [facility] 12Admin Note: rcvd elsewhere Medications acetaminophen 325 mg oral tablet 2, tablet, By Mouth, Every 6 hours, PRN, # 100 tablet, Refills 5, Maintenance, NEEDED FOR MODERATE PAIN (VIAL), 09/14/23 15:41:00 EST, Route to Pharmacy Electronically, [facility], 160, cm, 07/07/23 15:02:00 EST, Height, 112.4, kg, 06/24/23... Start Date: 09/14/23 Status: Ordered Albuterol (Eqv-ProAir HFA) 90 mcg/inh inhalation aerosol 2 puffs, Inhalation, Every 4 hours, PRN NEEDED FOR WHEEZING OR FOR SHORTNESS OF BREATH (BULK), #8.5 Gm, 5 Refills, Maintenance, 07/25/23 11:45:00 EST, [facility], 17, INHALE 2 PUFFS BY MOUTH [...] 10/07/23 15:53:00 EDT, Route to Pharmacy Electronically, [facility], 160, cm, 07/07/2315:02:00 EST, Height, 112.4, kg, 06/24/23 17:38:00... Start Date: 10/07/23 Status: Ordered cyclobenzaprine 5 mg oral tablet 1 tablet, By Mouth, 3 times a day, PRN NEEDED, SPASM (VIAL., # 90 tablet, 3 Refills, Maintenance, 08/19/23 10:07:00 EST, [facility], 160, cm, 07/07/23 15:02:00 EST, Height, 112.4, kg, 06/24/23 17:38:00 EST, Dry Weight Start Date: 08/19/23 Status: Ordered docusate sodium 100 mg oral capsule 100 mg, 1, capsule, By Mouth, 2 times a day, hold for loose stool, # 180 capsule, Refills 3, Tot. Refills 3, Maintenance, 03/13/23 16:56:00 EDT, Route to Pharmacy Electronically, [facility], Partial fill upon patient request if the prescriptio... Start Date: 03/13/23 Stop Date: 04/12/23 Status: Ordered duloxetine 20 mg oral enteric coated capsule 2 capsule = 40 mg, By Mouth, Daily at bedtime, # 60 capsule, 11 Refills, Maintenance, 06/25/21 12:00:00 EST, Capsule, [facility], Partial fill upon patient [...] Tot. Refills 0, Maintenance, HT:160cm WT:109.5kg Dx:M48.061 MARILYN: [facility], 10/23/23 16:02:00 EDT, Supply Start Date: 10/23/23 Status: Ordered Freestyle Lancets See Instructions, # [...] Replace Required Details, Route to Pharmacy Electronically, [facility], 160, cm, 07/07/23 15:02:00 EST, Height,... Start Date: 07/28/23 Status: Ordered furosemide 40 mg oral tablet 40 mg, 1, tablet, By Mouth, Daily, # 90 tablet, Refills 1, Tot. Refills 1, Maintenance, 03/02/23 18:12:00 EDT, Route to Pharmacy Electronically, [facility], Partial fill upon patient request if the prescription is for a schedule II opioid drug... Start Date: 03/02/23 Status: Ordered gabapentin 300 mg oral capsule 300 mg, 1, capsule, By Mouth, 3 times a day, # 90 capsule, Refills 2, Tot. Refills 2, Maintenance, 09/09/23 17:17:00 EST, Route to Pharmacy Electronically, [facility], Partial fill upon patient request if [...] mL, 11 Refills, Maintenance, 08/11/23 7:46:00 EST, [facility], 30, INSTILL 2 SPRAYS IN EACH [...] 07/01/23 14:32:00 EST, Route to Pharmacy Electronically, [facility], 160, cm, 06/26/23 11:21:00 EST, Height, 112.4, kg, 06/24/23 17:38:00 EST, Dry Weight Start Date: 07/01/23 Status: Ordered metFORMIN 500 mg oral tablet 1 tablet = 500 mg, By Mouth, 2 times a day, # 60 tablet, 5 Refills, Maintenance, 07/07/23 15:26:00 EST, [facility], [facility], Partial fill upon patient request if the prescription is for a schedule II opioid drug., 160, cm, 07/07/23 15:02:00 EST... Start Date: 07/07/23 Stop Date: 01/03/24 Status: Ordered nicotine 21 mg/24 hr transdermal film, extended release 1 patch, Topically, Daily, # 28 patch, 3 Refills, Maintenance, 09/14/23 15:41:00 EST, [facility], 28, APPLY 1 PATCH TOPICALLY DAILY, [...] tablet, 5 Refills, Maintenance, 08/19/23 10:06:00 EST, [facility], 160, cm, 07/07/23 15:02:00 EST, Height, 112.4, kg, 06/24/23 17:38:00 EST,Dry Weight Start Date: 08/19/23 Status: Ordered rOPINIRole 0.5 mg oral tablet 1 tablet, By Mouth, 3 times a day, ^1R1,1R3,1R4., # 90 tablet, 5 Refills, Maintenance, 10/11/23 20:09:00 EDT, [facility], 160, cm, 07/07/23 15:02:00 EST, Height, 112.4, kg, 06/24/23 17:38:00 EST, Dry Weight Start Date: 10/11/23 Status: Ordered rosuvastatin 10 mg oral tablet 1 tablet, By Mouth, Daily, ^1R1., # 30 tablet, 5 Refills, Maintenance, 07/01/23 14:33:00 EST, [facility], 160, cm, 06/26/23 11:21:00 EST, Height, 112.4, kg, 06/24/23 17:38:00 EST, Dry Weight Start Date: 07/01/23 Status: Ordered Symbicort 160mcg/4.5mcg Inhaler 2, puffs, Inhalation, 2 times a day, # 10.2 Gm, Refills 11, Tot. Refills 11, Maintenance, 06/03/23 11:47:00 EST, Aerosol, Route to Pharmacy Electronically, [id number], [facility], 160, cm, 06/03/23 11:30:00 EST, Height, [...] 30 tablet, 5 Refills, Maintenance, 10/26/23 10:04:00 EDT,[facility], 160, cm, 10/16/23 10:41:00 EDT, Height, [...] Confirmed Active Gastric banding status Confirmed Active buttermaker continuous churn current use of opiate analgesic Confirmed Active [...] Team Personnel Name: Sandra Wills NP Position: [facility] PCO Associate Professional Member Role: Primary Care Nurse Address: Address: [address] [place] [address] [place] [address]- Name: Marley Alejo RN Position: [facility] RN Member Role: Primary Care Nurse Name: Rashi Dewitt RN Position: [facility] RN Member Role: Primary Care Nurse Name: Alma Delia Fonseca PharmD Position: [facility] Associate Professional Member Role: [employer] Consulting Provider Address: Address: [address] [place] [address] [place] [address]- [place] Name: Priscila Garzon RN Position: [facility] RN Member Role: Primary Care Nurse Name: Kyle Ahumada DO Position: [facility] Physician - Primary Care Member Role: PCP Address: Address: [address] [place] [address]- [place] Name: Renea Mart RN Position: [facility] RN Member Role: Primary Care Nurse Care Team Related Persons Name: FAUZIA JANSEN Address: home [address] [place] [address] Name: AURELIA SHETH Address: home [address] [place] [address] Name: BRE OSORIO Address: home [address] [place] [address]
--- OUTSIDE RECORDS SUMMARY | 2024-01-02 21:21 | XMS_ITS | Continuity of Care Document ---
Author Organization [facility] Robin Jane Nolberto Address [address] [place] [address]- Care Team Providers Care Comb Capper Name Role Phone Krishan GRIDER, Eulogio Molina Primary Care Physician [facility] Date[facility] 09[facility]21 - 10/03/21 [facility] Robin Bolañosley Adult [address] [place] [address]- Allergies, Adverse Reactions, Alerts Substance Reaction Severity Status Adhesive Bandage Active Dust copd exac/sinus congestion A ctive Immunizations Given and Recorded Vaccine Date Status Refusal Reason SARS-CoV-2 mRNA (kfpcejx-epbf-duyja) vax 08/30/21 Recorded influenza virus vaccine, inactivated [...] B adult vaccine 06/14/02 Recorded 1Result Comment: [id number] 2Result Comment: [id number] 3Result Comment: [id number] 4Result Comment: [07/08/2017] [id number] 5Admin Note: [facility] 6Admin Note: [facility] [...] 8.5 Gm, 5 Refills, 05/29/21 17:13:00 EDT, [facility] #[id number], 17, INHALE 2 PUFFS BY MOUTH EVERY 4 HOURS NEEDED FOR WHEEZING OR SHORTNE... Start Date: 05/29/21 Status: Ordered calcipotriene 0.005% topical cream 1 application, Topically, 2 times a day, # 60 Gm, 11 Refills, Maintenance, 10/31/20 14:14:00 EDT, Cream, [facility] #[id number], Partial fill upon patient request if the prescription is for a schedule II opioid drug., 1 application Topically 2 ti... Start Date: 10/31/20 Status: Ordered chlorthalidone 25 mg oral tablet 1, tablet, By Mouth, Daily, # 90 tablet, Refills 3, Route to Pharmacy Electronically, [facility], 165, cm, 06/25/21 11:35:00 EST, [...] 11 Refills, Maintenance, 06/25/21 12:00:00 EST, Capsule, [facility], Partial fill upon patient request if [...] Gm, 3 Refills, Maintenance, 06/22/20 14:58:00 EST, [facility] #[id number], 165, cm, 06/07/20 13:52:00 EST, Height, 127, [...] Details, Route to Pharmacy Electronically, [facility] [place] Start Date: 09/05/21 Status: Ordered HydrOXYzine PRn , rare use, 0 Refills, Maintenance, 04/30/20 15:04:00 EDT Start Date: 04/30/20 Status: Ordered ipratropium nasal 21 mcg/inh spray 2 sprays, Nares, Both, 2 times a day, # 30 mL, 5 Refills, Maintenance, 10/01/18 10:08:42 EST, [place], 2 sprays Nares, Both 2 times a [...] Details, Route to Pharmacy Electronically, [facility], 165, cm, 06/25/21 11:35:00 EST, Height, [...] Maintenance, 05/21/21 11:19:00 EDT, Tablet, [facility], Partial fill upon patient request if the prescription is for a schedule II... Start Date: 05/21/21 Status: Ordered methenamine hippurate 1 gm oral tablet 1 tablet = 1 Gm, By Mouth, 2 times a day, # 60 tablet, 11 Refills, Maintenance, 07/05/21 14:00:00 EST, [facility], Partial fill upon patient request if the prescription is for a schedule II opioid drug., 165, cm, 02/28/21 14:22:00 EDT, Height,... Start Date: 07/05/21 Status: Ordered Mitigare 0.6 mg oral capsule 1 capsule, By Mouth, Daily, # 30 capsule, 11 Refills, Maintenance, 12/31/20 16:51:00 EDT, [facility] #[id number], 165, cm, 11/19/20 11:32:00 EDT, Height, 127, kg, 02/03/20 14:39:00 EDT, Dry Weight Start Date: 12/31/20 Status: Ordered penicillin V potassium 250 mg oral tablet 1 tablet = 250 mg, By Mouth, 2 times a day, Cellulitis prophylaxis, # 60 tablet, 11 Refills, Maintenance, 10/30/20 12:09:00 EDT, [facility] #[id number], 165, cm, 10/19/20 8:59:00 EDT, Height, 127, kg, 02/03/20 14:39:00 EDT, Dry Weight Start Date: 10/30/20 Status: Ordered propranolol 20 mg oral tablet 20 mg, 1, tablet, By Mouth, 2 times a day, Stop metoprolol, # 60 tablet, Refills 5, Tot. Refills 5,Maintenance, 09/05/21 6:13:00 EST, Route to Pharmacy Electronically, [facility], Partial fill upon patient request if the prescription is for a... Start Date: 09/05/21 Status: Ordered risperiDONE 1 mg oral tablet take 1 tablet by mouth twice a day Start Date: 05/23/19 Status: Ordered rOPINIRole 0.5 mg oral tablet 1 tablet, By Mouth, 3 times a day, # 90 tablet, 3 Refills, [facility], 165, cm, 06/25/21 11:35:00 EST, Height, 127, kg, 02/03/20 14:39:00 EDT, Dry Weight Start Date: 07/09/21 Status: Ordered rosuvastatin 10 mg oral tablet 1 tablet = 10 mg, By Mouth, Daily, # 90 tablet, 1 Refills, Maintenance, 05/20/21 15:53:00 EDT, Tablet, [facility], d/c rx for capsules, 165, cm, [...] 6 Refills, Maintenance, 06/12/21 17:09:00 EST, Tablet, [facility], Dosing Subject To Change per INR Result per MD,165, cm, 05/21/21 10:54:00 EDT, Height, 127, kg, 07... Start Date: 06/12/21 Status: Ordered warfarin 5 mg oral tablet See Instructions, Dosing Subject To Change Per INR Result per MD, # 30 each, 6 Refills, Maintenance, 06/12/21 17:05:00 EST, Tablet, [facility], PLEASE GIVE BOTH 5MG TABLETS AND [...] long-term use(Confirmed) Active Gastric banding status(Confirmed) Active jail current use of 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
--- OUTSIDE RECORDS SUMMARY | 2024-01-02 21:21 | XMS_ITS | Continuity of Care Document ---
Author Organization [facility] Buck Nolberto Address [address] [place] [address]- Care Team Providers Care Family Practice Doctor Name Role Phone Krishan GRIDER, Eulogio Molina Primary Care Physician [facility] 07[facility]22 - 08/22/22 [facility] Robin Bolañosley Adult [address] [place] [address]- Allergies, Adverse Reactions, Alerts Substance Reaction Severity [...] vaccine, inactivated 05/10/07 Jarrett rded SARS-CoV-2 mRNA ([id number]) vax 08/30/21 Recorded SARS-CoV-2 (COVID-19) mRNA BNT-162b2 vac 01/02/21 Recorded SARS-CoV-2 (COVID-19) mRNA BNT-162b2 vac 12/02/20 Recorded Fluvirin (oldterm) 8 03/22/15 Given Fluzone Preservative-Free (oldterm) 9 03/12/12 Giv en pneumococcal 23-valent vaccine 10/08/11 Given tetanus/diphtheria/pertussis, acel(Tdap) 09/08/11 Given tetanus/diphtheria/pertussis, acel(Tdap) 12/17/06 Recorded influ virus vac, H1N1, inactive(oldterm) 10 05/08/11 Given hepatitis B adult vaccine 06/14/02 Recorded 1Result Comment: [id number] 2Result Comment: [id number] 3Result Comment: [id number] 4Result Comment: [id number] 5Result Comment: [07/08/2017] 44287-275-31 6Admin Note: [facility] 7Admin Note: [facility] [...] Gm, 4 Refills, Maintenance, 04/28/22 13:11:00 EDT, [facility], 17, INHALE 2 PUFFS BY MOUTH [...] 08/18/22 9:30:00 EST, [facility], 160, cm, 07/18/22 11:39:00 EST, Height, 98.8, kg, 07/17/22 8:58... Start Date: 08/18/22 Status: Ordered colchicine 0.6 mg oral tablet 0.6 mg, 1, tablet, By Mouth, Daily, # 30 tablet, Refills 11, Tot. Refills 11, Maintenance, 227:00:00 EDT, [facility], [facility] [...] 01/11/22 7:25:00 EDT, Route to Pharmacy Electronically, [facility], Partial fill upon patient request if [...] 07/17/22 17:07:00 EST, Route to Pharmacy Electronically, [facility], 160, cm, 07/17/22 12:03:00 EST, Height, [...] 5 Refills, Maintenance, 07/29/22 6:50:00 EST, Tablet, [facility], Partial fill upon patient request if the prescription is for a schedule II opioid drug., 160, cm, 07/18/22 11:39:00 EST,... Start Date: 07/29/22 Status: Ordered pantoprazole 40 mg oral delayed [...] tablet, 5 Refills, Maintenance, 07/24/22 23:41:00 EST, [facility], 160, cm, 07/18/22 11:39:00 EST, Height, [...] Gm, 5 Refills, Maintenance, 07/17/22 11:09:00 EST, [facility], 160, cm, 07/17/22 8:49:00 EST, Height, 98.8, kg, 07/17/22 8:58:00 EST, Dry Weight Start Date: 07/17/22 Status: Ordered Symbicort 80mcg/4.5mcg Inhaler See Instructions, INHALE 2 PUFFS BY MOUTH TWICE A DAY RINSE MOUTH AND THROAT AFTER USE, # 10.2 Gm, Refills 5, Maintenance, 07/30/22 21:16:00 EST, Instructions Replace Required Details, Route to Pharmacy Electronically, [id number][facility] Start Date: 07/30/22 Status: Ordered warfarin 1 mg oral tablet See Instructions, Take 1-10 tabs daily as directed by NEOS., # 150 tablet, 0 Refills, Maintenance, 07/18/22 8:55:00 EST, Tablet, [facility], Partial fill upon [...] Confirmed Active Gastric banding status Confirmed Active halfway current use of opiate analgesic Confirmed Active [...] Team Personnel Name: Sandra Wills NP Position: [facility] PCO Associate Professional Member Role: Primary Care Nurse Address: Address: [address] [place] [address] [place] [address]- Name: Marley Alejo RN Position: [facility] RN Member Role: Primary Care Nurse Name: Eulogio Nickerson MD Position: [facility] Primary Care Physician Member Role: PCP Address: Address: [address] [place] [address]- [place] Name: Alma Delia Fonseca PharmD Position: [facility] Associate Professional Member Role: Lifetime Consulting Provider Address: Address: [address] [place] [address] [place] [address]- Name: Yolis Mattson RN Position: S RN Member Role: Primary Care Nurse Name: Priscila Garzon RN Position: [facility] RN Member Role: Primary Care Nurse Name: Renea Mart RN Position: [facility] RN Member Role: Primary Care Nurse Care Team Related Persons Name: FAUZIA JANSEN Address: home [address] [place] [address] Name: AURELIA SHETH Address: home [address] [place] [address] Name: BRE OSORIO Address: home [address] [place] [address]
--- OUTSIDE RECORDS SUMMARY | 2024-01-02 21:21 | XMS_ITS | Continuity of Care Document ---
Author Organization [facility] Buck Nolberto Address [address] [place] [address]- Care Team Providers Care Managed Services Consultant Name Role Phone Krishan GRIDER, Eulogio Molina Primary Care Physician [facility]): 11[facility]08[facility]21 - 12/08/21 [facility] Adult [address] [place] [address]- Allergies, Adverse Reactions, Alerts Substance Reaction Severity Status Adhesive Bandage Active Dust copd exac/sinus congestion A ctive Immunizations Given and Recorded Vaccine Date Status Refusal Reason SARS-CoV-2 mRNA ([id number]-[id number]-kmnhj) vax 08/30/21 Recorded influenza virus vaccine, inactivated [...] B adult vaccine 06/14/02 Recorded 1Result Comment: [id number] 2Result Comment: [id number] 3Result Comment: [id number] 4Result Comment: [07/08/2017] 60129-204-17 5Admin Note: [facility] 6Admin Note: [facility] [...] 8.5 Gm, 5 Refills, 05/29/21 17:13:00 EDT, [id number], 17, INHALE 2 PUFFS BY MOUTH EVERY 4 HOURS NEEDED FOR WHEEZING OR SHORTNE... Start Date: 05/29/21 Status: Ordered calcipotriene 0.005% topical cream 1 application, Topically, 2 times a day, # 60 Gm, 11 Refills, Maintenance, 11/15/21 11:54:00 EDT, Cream, [facility], Partial fill upon patient request if the prescription is for a schedule IIopioid drug., 1 application Topically 2 times a day... Start Date: 11/15/21 Status: Ordered colchicine 0.6 mg oral tablet 0.6 mg, 1, tablet, By Mouth, Daily, # 30 tablet, Refills 11, Tot. Refills 11, Maintenance, :00:00 EDT, Route to Pharmacy Electronically, [facility], Partial fill upon patient request if the prescription is for a schedule II opioid drTorey.. Start Date: 10/30/21 Status: Ordered cyclobenzaprine 10 mg oral tablet See Instructions, PRN, 1 tablet By Mouth 3 times a day as needed, # 20 tablet, Refills 0, Tot. Refills 0, Maintenance, for spasm, 11/08/21 10:23:00 EDT, Instructions Replace Required Details, Route to Pharmacy Electronically, [id number]... Start Date: 11/08/21 Status: Ordered digoxin [...] 11 Refills, Maintenance, 06/25/21 12:00:00 EST, [facility], Partial fill upon patient [...] 5 Refills, Maintenance, 11/18/21 13:49:00 EDT, [facility]t, [facility], [facility] fill upon patient [...] Pharmacy Electronically, [facility], 165, cm, 06/25/21 11:35:00 EST, [...] 03/05/22 16:36:00 EDT, 12/03/21 16:35:00 EDT, [id number], Partial fill uponpatient request if the prescription is for a schedu... Start Date: 12/03/21 Stop Date: 03/05/22 Status: Ordered NuLYTELY with Flavor Packs oral powder for reconstitution 240 mL, By Mouth, Every 10 minutes, # 1 each, 0 Refills, Maintenance, 10/25/21 10:39:00 EDT, REC Powder, [facility], Partial fill upon patient request if the prescription is for a schedule IIopioid drug., 240 mL By Mouth Every 10 minutes, 165... Start Date: 10/25/21 Status: Ordered penicillin V potassium 250 mg oral tablet 1 tablet, By Mouth, 2 times a day, CELLULITIS PROPHYLAXIS., # 60 tablet, 6 Refills, [facility], 165, cm, 11/08/21 10:02:00 EDT, Height, 127, kg, 02/03/20 14:39:00 EDT, Dry Weight Start Date: 11/15/21 Status: Ordered rOPINIRole 0.5 mg oral tablet 1 tablet, By Mouth, 3 times a day, # 90 tablet, 5 Refills, 11/08/21 9:01:00 EDT, [facility], 165, cm, 11/04/21 8:42:00 EDT, Height, 127, kg, 02/03/20 14:39:00 EDT, Dry Weight Start Date: 11/08/21 Status: Ordered rosuvastatin 10 mg oral tablet See Instructions, TAKE 1 TABLET BY MOUTH DAILY, # 90 tablet, 1 Refills, Maintenance, 10/18/21 21:30:00 EDT, [facility], 165, cm, 09/04/21 14:01:00 EST, Height, 127, kg, 02/03/20 14:39:00 EDT,Dry Weight Start Date: 10/18/21 Status: Ordered warfarin 2.5 mg oral tablet See Instructions, Dosing Subject To Change per INR Result per MD, # 30 each, 6 Refills, Maintenance, 06/12/21 17:09:00 EST, Tablet, [facility], Dosing Subject To Change per INR Result per MD,165, cm, 05/21/21 10:54:00 EDT, Height, 127, kg, 07... 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
--- OUTSIDE RECORDS SUMMARY | 2024-01-02 21:21 | XMS_ITS | Continuity of Care Document ---
Author Organization [facility] Robin Jane Nolberto Address [address] [place] [address]- Care Team Providers Care Emergency Department Director Name Role Phone Kyle Ahumada DO Primary Care Physician [facility]s): 03[facility]13[facility]23 - 04/12/23 [facility] Robin Bolañosley Adult [address] [place] [address]- Allergies, Adverse Reactions, Alerts Substance Reaction Severity [...] vaccine, inactivated 05/10/07 Jarrett rded SARS-CoV-2 mRNA ([id number]) vax 08/30/21 Recorded SARS-CoV-2 (COVID-19) mRNA BNT-162b2 vac 01/02/21 Recorded SARS-CoV-2 (COVID-19) mRNA BNT-162b2 vac 12/02/20 Recorded Fluvirin (oldterm) 8 03/22/15 Given Fluzone Preservative-Free (oldterm) 9 03/12/12 Giv en pneumococcal 23-valent vaccine 10/08/11 Given tetanus/diphtheria/pertussis, acel(Tdap) 09/08/11 Given tetanus/diphtheria/pertussis, acel(Tdap) 12/17/06 Recorded influ virus vac, H1N1, inactive(oldterm) 10 05/08/11 Given hepatitis B adult vaccine 06/14/02 Recorded 1Result Comment: [id number] 2Result Comment: [id number] 3Result Comment: [id number] 4Result Comment: [id number] 5Result Comment: [07/08/2017] 25918-239-21 6Admin Note: [facility] 7Admin Note: [facility] 04-08 8Admin Note: Given at [facility] 9Admin Note: 03-11-12 GIVEN AT [facility] 10Admin Note: rcvd elsewhere Medications acetaminophen 325 mg oral tablet 650 mg, 2, tablet, By Mouth, Every 6 hours, PRN, # 100 tablet, Refills 1, Tot. Refills 1, Maintenance, Pain , Moderate, 03/13/23 16:59:00 EDT, Route to Pharmacy Electronically, [facility], Partial fill upon patient request if the prescription... Start Date: 03/13/23 Status: Ordered Albuterol (Eqv-ProAir HFA) 90 mcg/inh inhalation aerosol See Instructions, INHALE 2 PUFFS BY MOUTH EVERY FOUR HOURS NEEDED FOR WHEEZING OR SHORTNESS OF BREATH, # 8.5 Gm, 5 Refills, Maintenance, 03/13/23 9:55:00 EDT, [facility], 30, INHALE 2 PUFFS BY MOUTH [...] 03/12/23 15:30:00 EDT, [facility], 160, cm, 03/02/23 9:56:00 EDT, Height, 98.8, k... Start Date: 03/12/23 Status: Ordered cloNIDine 0.1 mg oral tablet 0.1 mg, 1, tablet, By Mouth, 2 times a day, PRN, # 60 tablet, Refills 2, Tot. Refills 2, Maintenance, Anxiety, 03/12/23 16:38:00 EDT, Route to Pharmacy Electronically, [facility], Partial fill upon patient request if the prescription is for a... Start Date: 03/12/23 Status: Ordered cyclobenzaprine 5 mg oral tablet 1 tablet = 5 mg, By Mouth, 3 times a day, PRN Spasm, can increase to 2 three time a day if needed, # 90 tablet, 2 Refills, Maintenance, 04/02/23 12:59:00 EDT, Tablet, [facility], Partial fillupon patient request if the prescription is for a s... Start Date: 04/02/23 Status: Ordered DilTIAZem (Eqv-Dilacor XR) 240 mg/24 hours oral capsule, extended release 1 capsule = 240 mg, By Mouth, Daily, # 90 capsule, 3 Refills, Maintenance, 03/13/23 17:04:00 EDT, CD Capsule, [facility], Partial fill upon patient request if the prescription is for a schedule II opioid drug., 160, cm, 03/02/23 9:56:00 EDT, H... Start Date: 03/13/23 Status: Ordered docusate sodium 100 mg oral capsule 100 mg, 1, capsule, By Mouth, 2 times a day, hold for loose stool, # 180 capsule, Refills 3, Tot. Refills 3, Maintenance, 03/13/23 16:56:00 EDT, Route to Pharmacy Electronically, [facility], Partial fill upon patient request if the prescriptio... Start Date: 03/13/23 Stop Date: 04/12/23 Status: Ordered duloxetine 20 mg oral enteric coated capsule 2 capsule = 40 mg, By Mouth, Daily at bedtime, # 60 capsule, 11 Refills, Maintenance, 06/25/21 12:00:00 EST, Capsule, [facility], Partial fill upon patient request if [...] 03/02/23 18:12:00 EDT, Route to Pharmacy Electronically, [facility], Partial fill upon patient request if the prescription is for a schedule II opioid drug... Start Date: 03/02/23 Status: Ordered ipratropium nasal 21 mcg/inh spray 2 sprays = 42 mcg, Nares, Both, 2 times a day, # 30 mL, 5 Refills, Maintenance, 03/13/23 16:58:00 EDT, [place], [facility], Partial fill upon patient request if [...] 02/07/23 18:12:00 EDT, Route to Pharmacy Electronically, [facility], 160, cm, 12/16/22 10:46:00 EDT, Height, [...] Maintenance, 03/13/23 17:03:00 EDT, Patch, [facility], Partial fill upon patient request if the prescription is for a schedule II opioid drug., 1 patch Topically Daily, 160, cm, 03/02/23 9:56:0... Start Date: 03/13/23 Status: Ordered penicillin V potassium 250 mg oral tablet 1 tablet, By Mouth, 2 times a day, ^1R1,1R4., # 60 tablet, 5 Refills, Maintenance, 04/10/23 16:03:00 EDT, [facility], 160, cm, 04/02/23 12:45:00 EDT, Height, 98.8, kg, 07/17/22 8:58:00 EST, Dry Weight Start Date: 04/10/23 Status: Ordered rOPINIRole 0.5 mg oral tablet 1 tablet, By Mouth, 3 times a day, ^1R1,1R3,1R4., # 90 tablet, 5 Refills, Maintenance, 12/24/22 14:21:00 EDT, [facility], 160, cm, 12/16/22 10:46:00 EDT, Height, 98.8, kg, 07/17/22 8:58:00 EST, Dry Weight Start Date: 12/24/22 Status: Ordered rosuvastatin 10 mg oral tablet 1 tablet, By Mouth, Daily, ^1R1., # 30 tablet, 5 Refills, Maintenance, 02/07/23 18:12:00 EDT, [facility], 160, cm, 12/16/22 10:46:00 EDT, Height, 98.8, kg, 07/17/22 8:58:00 EST, Dry Weight Start Date: 02/07/23 Status: Ordered Symbicort 80mcg/4.5mcg Inhaler See Instructions, INHALE 2 PUFFS BY MOUTH TWICE A DAY RINSE MOUTH AND THROAT AFTER USE, # 10.2 Gm, Refills 5, Tot. Refills 5, Maintenance, 03/13/23 10:13:00 EDT, Instructions Replace Required Details, Route to Pharmacy Electronically, NCPDP_[id number]... 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 Active [...] Team Personnel Name: Sandra Wills NP Position: [facility] PCO Associate Professional Member Role: Primary Care Nurse Address: Address: [address] [facility] [place] [place] [address]- [place] Name: Marley Alejo RN Position: S RN Member Role: Primary Care Nurse Name: Alma Delia Fonseca PharmD Position: [facility] BH Associate Professional Member Role: Lifetime Consulting Provider Address: Address: [address] [facility] [place] [address]- [place] Name: Yolis Mattson RN Position: [facility] RN Member Role: Primary Care Nurse Name: Priscila Garzon RN Position: [facility] RN Member Role: Primary Care Nurse Name: Kyle Ahumada DO Position: [facility] Physician - Primary Care Member Role: PCP Address: Address: [address] [place] [address]- [place] Name: Renea Mart RN Position: [facility] RN Member Role: Primary Care Nurse Care Team Related Persons Name: FAUZIA JANSEN Address: home [address] [place] [address] Name: AURELIA SHETH Address: home [address] [place] [address] Name: BRE OSORIO Address: home [address] [place] [address]
--- OUTSIDE RECORDS SUMMARY | 2024-01-02 21:21 | XMS_ITS | Continuity of Care Document ---
Author Organization [facility] Robin Jane Nolberto lt Address [address] [place] [address]- Care Team Providers Care Tree Worker Name Role Phone Radha GRIDER, Fuentes Kenny Primary Care Physician [facility]s): 08/10/20 - 09/09/20 [facility] Adult [address] [place] [address]- Allergies, Adverse Reactions, Alerts Substance Reaction Severity [...] H1N1, inactive(oldterm) 8 05/08/11 Given 1Result Comment: [id number] 2Result Comment: [id number] 3Result Comment: [07/08/2017] 40584-716-15 4Admin Note: [facility] 5Admin Note: [facility] [...] 5 Refills, Maintenance, 07/03/20 9:16:00 EST, Cream, [id number], Partial fill upon patient request if the [...] 06/04/20 12:56:00 EST, Route to Pharmacy Electronically, [facility][id number], please schedule appt for further refills, 165, cm, 05/16/20 14:15:00 EDT, Hei... Start Date: 06/04/20 Status: Ordered Claritin 10 mg oral tablet 10 mg, 1, tablet, By Mouth, Daily, for 90 days, # 90 tablet, Refills 3, Tot. Refills 3, Acute 07/28/21 15:22:00 EST, 08/02/20 15:22:00 EST, Route to Pharmacy Electronically, [facility] #[id number], 165, cm, 07/31/20 14:32:00 EST, Height, 127, kg,... Start Date: 08/02/20 Stop Date: 07/28/21 Status: Ordered colchicine 0.6 mg oral tablet See Instructions, take 1 tablet by mouth once daily if needed for PSEUDOGOUT pain, # 30 tablet, Refills 5, Tot. Refills 5, Soft Stop, 01/05/20 8:41:00 EDT, Instructions Replace Required Details, Route to Pharmacy Electronically, [facility] #... Start Date: 01/05/20 Status: Ordered Disposable [...] Gm, 3 Refills, Maintenance, 06/22/20 14:58:00 EST, [facility][id number], 165, cm, 06/07/20 13:52:00 EST, Height, 127, [...] mL, 5 Refills, Maintenance, 10/01/18 10:08:42 EST, [place], 2 sprays Nares, Both 2 times a [...] 08/02/20 16:13:00 EST, Route to Pharmacy Electronically, [facility] #[id number], D/C RX ON FILE FOR ABRAM, 165, [...] 09/29/20 14:57:00 EST, 07/31/20 14:57:00 EST, Capsule, [facility] #[id number], Partial fill upon patient request if the prescription is for a schedule II opi... Start Date: 07/31/20 Stop Date: 09/29/20 Status: Ordered methenamine hippurate 1 gm oral tablet 1 tablet = 1 Gm, By Mouth, 2 times a day, # 60 tablet, 1 Refills, Maintenance, 07/12/20 13:56:00 EST, [id number], Partial fill upon patient request if the prescription is for a schedule II opioid drug., 165, cm, 07/11/20 15:24:00 EST,... Start Date: 07/12/20 Stop Date: 07/05/21 Status: Ordered metoprolol 25 mg oral tablet 25 mg, 1, tablet, By Mouth, 2 times a day, # 60 tablet, Refills 5, Tot. Refills 5, Maintenance, 03/22/20 16:34:00 EDT, Route to Pharmacy Electronically, [facility] #[id number], 165, cm, 02/02/2014:39:00 EDT, Height, 127, kg, [...] 0 Refills, Maintenance, 06/18/20 16:57:00 EST, Patch, [facility] #[id number], Partial fill upon patient request, 165, cm, 06/07/20 13:52:00 EST, Height, 127, kg, 02/03/20 14:39:00 EDT, Dry Weight Start Date: 06/18/20 Stop Date: 07/30/20 Status: Ordered NuLYTELY with Flavor Packs oral powder for reconstitution See Instructions, Drink 240mL every 15-20 minutes until first half is gone. Repeat 6 hours prior toprocedure., # 4,000 mL, 0 Refills, Maintenance, 06/28/20 17:09:00 EST, [id number],Partial fill upon patient request if the prescript... Start Date: 06/28/20 Status: Ordered oxyCODONE 10 mg oral tablet 1 tablet = 10 mg, By Mouth, Every 8 hours, DX Z79.891 G89.29 M47.816 OK TO FILL LESS THAN PRESCRIBED AMOUNT, # 84 tablet, 0 Refills, Maintenance, 08/14/20 14:32:00 EST, Tablet, [facility] #[id number], 08/14/20, 165, cm, 07/31/20 14:32:00 EST, He... [...] 5 Refills, Maintenance, 04/30/20 15:13:00 EDT, Tablet, [facility] #[id number], 165, cm, 04/30/20 14:30:00 EDT, Height, 127, kg, 02/03/20 14:39:00 EDT, Dry Weight Start Date: 04/30/20 Status: Ordered rosuvastatin 10 mg oral tablet 1 tablet = 10 mg, By Mouth, Daily, # 90 tablet, 3 Refills, Maintenance, 05/03/20 16:35:00 EDT, Tablet, [facility][id number], d/c rx for capsules, 165, cm, 04/30/20 14:30:00 EDT, Height, 127, kg, 02/03/20 14:39:00 EDT, Dry Weight Start Date: 05/03/20 Status: Ordered Ventolin HFA 108 mcg/inh inhalation aerosol with adapter 2 puffs, Inhalation, Every 4 hours, PRN Wheezing/Shortness of Breath, # 1 each, 11 Refills, Soft Stop, 01/19/20 11:46:00 EDT, [facility] #[id number], 165, cm, 01/16/20 6:17:00 EDT, Height, 128.1, kg, 01/16/20 6:17:00 EDT, Dry Weight Start Date: 01/19/20 Status: Ordered warfarin 5 mg oral tablet 1 tablet = 5 mg, By Mouth, Daily, dosing subject to change pending inr lab values, # 30 tablet, 11 Refills, Maintenance, 08/31/20 15:36:00 EST, Tablet, [facility] #[id number], 165, cm, 07/31/20 14:32:00 EST, Height, 127, [...]
--- OUTSIDE RECORDS SUMMARY | 2024-01-02 21:21 | XMS_ITS | Continuity of Care Document ---
Author Organization [facility] Address [address] [place] [address]- Care Team Providers Care Supervisor Shop Name Role Phone Fuentes Garcia MD Primary Care Physician Encounter [facility] Date(s): 07/22/19 - 08/01/19 [facility] [address] [address]- [facility] Attending Physician: Desire Velasquez Admitting Physician: AdmDesire [...] H1N1, inactive(oldterm) 7 05/08/11 Given 1Result Comment: [id number] 2Result Comment: [07/08/2017] [id number] 3Admin Note: [facility] 4Admin Note: [facility] [...] Maintenance, 07/18/19 9:13:00 EST, [facility] [address], 162, cm, 05/23/19 11:50:00 EDT, Height, 116.4, kg, 05/04/19 11:52:00 EDT, Dry Weight Start Date: 07/18/19 Stop Date: 07/19/19 Status: Ordered chlorthalidone 25 mg oral tablet 25 mg, 1, tablet, By Mouth, Daily, # 30 tablet, Refills 2, Tot. Refills 2, Maintenance, 06/17/19 14:30:22 EST, Route to Pharmacy Electronically, [facility]- [id number], [facility] [address], please schedule appt for further refills Start Date: 06/17/19 Status: Ordered Claritin 10 mg oral tablet 10 mg, 1, tablet, By Mouth, Daily, for 30 days, # 30 tablet, Refills 11, Tot. Refills 11, Acute 05/11/20 17:36:41 EDT, 05/17/19 17:36:41 EDT, Route to Pharmacy Electronically, [id number], [facility] Start Date: 05/17/19 Stop Date: 05/11/20 Status: [...] mL, 5 Refills, Maintenance, 10/01/18 10:08:42 EST, [place], 2 sprays Nares, Both 2 times a [...] 12/08/18 12:09:04 EDT, Route to Pharmacy Electronically, [id number], [facility] [address] [facility] Start Date: 12/08/18 Status: Ordered MiraLax oral [...] 0 Refills, Maintenance, 07/11/19 12:14:00 EST, Tablet, [facility] [address], 07/19/19, 162, cm, 05/23/19 11:50:46 EDT, [facility]... Start Date: 07/11/19 Status: Ordered OYSTER SHELL SHARIF-VIT D 500-400 See Instructions, # 300 tablet, take 1 tablet by mouth twice a day, [facility] [address] Start Date: 05/17/19 Status: Ordered penicillin [...] NEEDED FOR WHEEZING - REPLACES PROAIR, [facility] [address] Start Date: 01/24/19 Status: Ordered Vitamin [...] 8:37:00 EST, Tablet, [facility] - [address], 162, cm, 05/23/19 11:50:00 EDT, Height, [...]
--- OUTSIDE RECORDS SUMMARY | 2024-01-02 21:21 | XMS_ITS | Continuity of Care Document ---
Author Organization [facility] Buck Nolberto Address [address] [place] [address]- Care Team Providers Care Casing Puller Name Role Phone Radha GRIDER, Fuentes Kenny Primary Care Physician [facility] Date[facility]s): 01[facility]21 - 02/08/21 [facility] Adult [address] [place] [address]- Allergies, Adverse Reactions, Alerts Substance Reaction Severity [...] B adult vaccine 06/14/02 Recorded 1Result Comment: [id number] 2Result Comment: [id number] 3Result Comment: [07/08/2017] [id number] 4Admin Note: [facility] 5Admin Note: [facility] [...] 11 Refills, Maintenance, 10/31/20 14:14:00 EDT, Cream, [facility] #[id number], Partial fill upon patient request if the [...] 11/27/20 10:09:00 EDT, Route to Pharmacy Electronically, [facility] #[id number], please schedule appt for further refills, 165, cm, 11/19/20 11:32:00 EDT, Hei... Start Date: 11/27/20 Status: Ordered Claritin 10 mg oral tablet 10 mg, 1, tablet, By Mouth, Daily, for 90 days, # 90 tablet, Refills 3, Tot. Refills 3, Acute 07/28/21 15:22:00 EST, 08/02/20 15:22:00 EST, Route to Pharmacy Electronically, [facility] #[id number], 165, cm, 07/31/20 14:32:00 EST, Height, 127, [...] PMR, history of smoking fax to : [phone], 04... Start Date: 10/26/20 Status: Ordered Disposable [...] Gm, 3 Refills, Maintenance, 06/22/20 14:58:00 EST, [facility] #[id number], 165, cm, 06/07/20 13:52:00 EST, Height, 127, [...] mL, 5 Refills, Maintenance, 10/01/18 10:08:42 EST, [place], 2 sprays Nares, Both 2 times a [...] 08/02/20 16:13:00 EST, Route to Pharmacy Electronically, [facility] #[id number], D/C RX ON FILE FOR CLARITAN, 165, [...] tablet, 1 Refills, Maintenance, 07/12/20 13:56:00 EST, [facility] #[id number], Partial fill upon patient request if the prescription is for a schedule II opioid drug., 165, cm, 07/11/20 15:24:00 EST,... Start Date: 07/12/20 Stop Date: 07/05/21 Status: Ordered metoprolol 25 mg oral tablet 25 mg, 1, tablet, By Mouth, 2 times a day, # 60 tablet, Refills 5, Tot. Refills 5, Maintenance, 09/22/20 13:59:00 EST, Route to Pharmacy Electronically, [facility] #[id number], 165, cm, 07/31/2113:32:00 EST, Height, 127, kg, 02/03/20 14:39:00 ED... Start Date: 09/22/20 Status: Ordered Mitigare 0.6 mg oral capsule 1 capsule, By Mouth, Daily, # 30 capsule, 11 Refills, Maintenance, 12/31/20 16:51:00 EDT, [facility] #[id number], 165, cm, 11/19/20 11:32:00 EDT, Height, 127, [...] 0 Refills, Maintenance, 06/18/20 16:57:00 EST, Patch, [facility] #[id number], Partial fill upon patient request, 165, cm, 06/07/20 13:52:00 EST, Height, 127, kg, 02/03/20 14:39:00 EDT, Dry Weight Start Date: 06/18/20 Stop Date: 07/30/20 Status: Ordered NuLYTELY with Flavor Packs oral powder for reconstitution See Instructions, Drink 240mL every 15-20 minutes until first half is gone. Repeat 6 hours prior toprocedure., # 4,000 mL, 0 Refills, Maintenance, 06/28/20 17:09:00 EST, [facility] #[id number],Partial fill upon patient request if the prescript... Start Date: 06/28/20 Status: Ordered oxyCODONE 10 mg oral tablet 1 tablet = 10 mg, By Mouth, Every 8 hours, DX Z79.891 G89.29 M47.816 OK TO FILL LESS THAN PRESCRIBED AMOUNT, # 84 tablet, 0 Refills, Maintenance, 01/25/21 16:57:00 EDT, Tablet, [facility] #[id number], 01/29/21, 165, cm, 01/11/21 14:05:00 EDT, He... Start Date: 01/25/21 Stop Date: 02/22/21 Status: Ordered penicillin V potassium 250 mg oral tablet 1 tablet = 250 mg, By Mouth, 2 times a day, Cellulitis prophylaxis, # 60 tablet, 11 Refills, Maintenance, 10/30/20 12:09:00 EDT, [facility] #[id number], 165, cm, 10/19/20 8:59:00 EDT, Height, 127, kg, 02/03/20 14:39:00 EDT, Dry Weight Start Date: 10/30/20 Status: Ordered predniSONE 5 mg oral tablet 1 tablet = 5 mg, By Mouth, Daily, # 30 tablet, 0 Refills, Maintenance, 01/11/21 14:20:00 EDT, Tablet, [facility] #34295, Partial fill upon patient request if the [...] 5 Refills, Maintenance, 04/30/20 15:13:00 EDT, Tablet, [facility] #[id number], 165, cm, 04/30/20 14:30:00 EDT, Height, 127, kg, 02/03/20 14:39:00 EDT, Dry Weight Start Date: 04/30/20 Status: Ordered rosuvastatin 10 mg oral tablet 1 tablet = 10 mg, By Mouth, Daily, # 90 tablet, 3 Refills, Maintenance, 05/03/20 16:35:00 EDT, Tablet, [facility] #68243, d/c rx for capsules, 165, cm, 04/30/20 14:30:00 EDT, Height, 127, kg, 02/03/20 14:39:00 EDT, Dry Weight Start Date: 05/03/20 Status: Ordered Ventolin HFA 108 mcg/inh inhalation aerosol with adapter 2 puffs, Inhalation, Every 4 hours, PRN Wheezing/Shortness of Breath, # 1 each, 5 Refills, Soft Stop, 11/08/20 8:46:00 EDT, [facility] #25348, 165, cm, 10/19/20 8:59:00 EDT, Height, 127, kg, 02/03/20 14:39:00 EDT, Dry Weight Start Date: 11/08/20 Status: Ordered warfarin 5 mg oral tablet 1 tablet = 5 mg, By Mouth, Daily, dosing subject to change pending inr lab values, # 30 tablet, 11 Refills, Maintenance, 08/31/20 15:36:00 EST, Tablet, [facility] #[id number], 165, cm, 07/31/20 14:32:00 EST, Height, 127, [...]
--- OUTSIDE RECORDS SUMMARY | 2024-01-02 21:21 | XMS_ITS | Continuity of Care Document ---
Author Organization [facility] Buck Nolberto Address [address] [place] [address]- Care Team Providers Care Career Law Clerk Name Role Phone Radha GRIDER, Fuentes Kenny Primary Care Physician [facility] Date[facility]s): 07/03/21 - 08/02/21 [facility] Adult [address] [place] [address]- Allergies, Adverse Reactions, Alerts Substance Reaction Severity [...] B adult vaccine 06/14/02 Recorded 1Result Comment: [id number] 2Result Comment: [id number] 3Result Comment: [id number] 4Result Comment: [07/08/2017] [id number] 5Admin Note: [facility] 6Admin Note: [facility] [...] 8.5 Gm, 5 Refills, 05/29/21 17:13:00 EDT, [facility] #[id number], 17, INHALE 2 PUFFS BY MOUTH EVERY [...] 11 Refills, Maintenance, 10/31/20 14:14:00 EDT, Cream, [facility] #[id number], Partial fill upon patient request if the [...] tablet, Refills 3, Route to Pharmacy Electronically, [facility], 165, cm, 06/25/21 11:35:00 EST, Height, [...] PMR, history of smoking fax to : [phone], 04... Start Date: 10/26/20 Status: Ordered Disposable [...] 11 Refills, Maintenance, 06/25/21 12:00:00 EST, [facility], [facility], Partial fill upon patient [...] Gm, 3 Refills, Maintenance, 06/22/20 14:58:00 EST, [facility] #[id number], 165, cm, 06/07/20 13:52:00 EST, Height, 127, [...] Refills, Maintenance, 05/24/21 16:13:00 EDT, REC Powder, [facility] #[id number], Partial fill upon patient request if the [...] mL, 5 Refills, Maintenance, 10/01/18 10:08:42 EST, [place], 2 sprays Nares, Both 2 times a [...] 08/02/20 16:13:00 EST, Route to Pharmacy Electronically, [facility] #[id number], D/C RX ON FILE FOR ABRAM, 165, [...] tablet, 6Refills, Maintenance, 05/21/21 11:19:00 EDT, Tablet, [facility], Partial fill upon patient request if the prescription is for a schedule II... Start Date: 05/21/21 Status: Ordered methenamine hippurate 1 gm oral tablet 1 tablet = 1 Gm, By Mouth, 2 times a day, # 60 tablet, 11 Refills, Maintenance, 07/05/21 14:00:00 EST, [facility], Partial fill upon patient request if the prescription is for a schedule II opioid drug., 165, cm, 02/28/21 14:22:00 EDT, Height,... Start Date: 07/05/21 Status: Ordered Metoprolol Tartrate 25 mg oral tablet 1 tablet, By Mouth, 2 times a day, # 60 tablet, 3 Refills, [facility], 165, cm, 06/25/21 11:35:00 EST, Height, 127, kg, 02/03/20 14:39:00 EDT, Dry Weight Start Date: 07/09/21 Status: Ordered Mitigare 0.6 mg oral capsule 1 capsule, By Mouth, Daily, # 30 capsule, 11 Refills, Maintenance, 12/31/20 16:51:00 EDT, [facility] #[id number], 165, cm, 11/19/20 11:32:00 EDT, Height, 127, [...] 0 Refills, Maintenance, 04/11/21 9:00:00 EDT, Patch, [facility], Partial fill upon patient request, 165, cm, 02/28/21 14:22:00 EDT, Height, 127, kg, 02/03/20 14:39:00 EDT, Dry Weight Start Date: 04/11/21 Stop Date: 05/23/21 Status: Ordered NuLYTELY with Flavor Packs oral powder for reconstitution See Instructions, Drink 240mL every 15-20 minutes until first half is gone. Repeat 6 hours prior toprocedure., # 4,000 mL, 0 Refills, Maintenance, 06/28/20 17:09:00 EST, [facility] #[id number],Partial fill upon patient request if the prescript... Start Date: 06/28/20 Status: Ordered oxyCODONE 10 mg oral tablet 1 tablet = 10 mg, By Mouth, Every 8 hours, DX Z79.891 G89.29 M47.816 OK TO FILL LESS THAN PRESCRIBED AMOUNT, # 84 tablet, 0 Refills, Maintenance, 07/16/21 13:32:00 EST, Tablet, [facility] #[id number], 165, cm, 06/25/21 11:35:00 EST, Height, 127,... Start Date: 07/16/21 Stop Date: 08/13/21 Status: Ordered penicillin V potassium 250 mg oral tablet 1 tablet = 250 mg, By Mouth, 2 times a day, Cellulitis prophylaxis, # 60 tablet, 11 Refills, Maintenance, 10/30/20 12:09:00 EDT, [facility] #[id number], 165, cm, 10/19/20 8:59:00 EDT, Height, 127, kg, 02/03/20 14:39:00 EDT, Dry Weight Start Date: 10/30/20 Status: Ordered predniSONE 5 mg oral tablet 1 tablet = 5 mg, By Mouth, Daily, # 30 tablet, 0 Refills, Maintenance, 01/11/21 14:20:00 EDT, Tablet, [facility] #[id number], Partial fill upon patient request if the prescription is for a schedule II opioid drug., 165, cm, 01/11/21 14:05:00 EDT,... Start Date: 01/11/21 Status: Ordered propranolol 20 mg oral tablet 20 mg, 1, tablet, By Mouth, 2 times a day, # 60 tablet, Refills 5, Tot. Refills 5, Maintenance, 06/25/21 11:57:00 EST, Route to Pharmacy Electronically, [email or web address], Partial fill upon patient request if [...] a day, # 90 tablet, 3 Refills, [facility], 165, cm, 06/25/21 11:35:00 EST, Height, 127, kg, 02/03/20 14:39:00 EDT, Dry Weight Start Date: 07/09/21 Status: Ordered rosuvastatin 10 mg oral tablet 1 tablet = 10 mg, By Mouth, Daily, # 90 tablet, 1 Refills, Maintenance, 05/20/21 15:53:00 EDT, Tablet, [facility], d/c rx for capsules, 165, cm, 02/28/21 14:22:00 EDT, Height, 127, kg, 02/03/20 14:39:00 EDT, Dry Weight Start Date: 05/20/21 Status: Ordered Trulicity Pen 1.5 mg/0.5 mL subcutaneous solution 0.5 mL = 1.5 mg, Subcutaneous Injection, Every week, take on same day every week, rotate injection sites E11.9, # 2 mL, 6 Refills, Maintenance, 07/23/21 10:03:00 EST, Solution, [facility] #[id number], Partial fill upon patient request if the p... Start Date: 07/23/21 Status: Ordered warfarin 2.5 mg oral tablet See Instructions, Dosing Subject To Change per INR Result per MD, # 30 each, 6 Refills, Maintenance, 06/12/21 17:09:00 EST, Tablet, [facility], Dosing Subject To Change per INR Result per MD,165, cm, 05/21/21 10:54:00 EDT, Height, 127, kg, 07... Start Date: 06/12/21 Status: Ordered warfarin 5 mg oral tablet See Instructions, Dosing Subject To Change Per INR Result per MD, # 30 each, 6 Refills, Maintenance, 06/12/21 17:05:00 EST, Tablet, [facility], PLEASE GIVE BOTH 5MG TABLETS AND [...]
--- OUTSIDE RECORDS SUMMARY | 2024-01-02 21:21 | XMS_ITS | Continuity of Care Document ---
Author Organization [facility] Nolberto lt Address [address] [place] [address]- Care Team Providers Care Latex Fashions Designer Name Role Phone Fuentes Garcia MD Primary Care Physician [facility]s): 02[facility]28[facility]21 - 03/30/21 [facility] Adult [address] [place] [address]- Attending Physician: Admtr, Ar8 Admitting Physician: Admtr, [...] B adult vaccine 06/14/02 Recorded 1Result Comment: [id number] 2Result Comment: [id number] 3Result Comment: [07/08/2017] [id number] 4Admin Note: [facility] 5Admin Note: [facility] [...] 11 Refills, Maintenance, 10/31/20 14:14:00 EDT, Cream, [facility] #[id number], Partial fill upon patient request if the [...] 02/12/21 12:56:00 EDT, Route to Pharmacy Electronically, [facility] #[id number], 165, cm, 01/11/21 14:05:00 EDT, Height, 127, [...] PMR, history of smoking fax to : [phone], 04... Start Date: 10/26/20 Status: Ordered Disposable [...] Gm, 3 Refills, Maintenance, 06/22/20 14:58:00 EST, [facility] #[id number], 165, cm, 06/07/20 13:52:00 EST, Height, 127, [...] mL, 5 Refills, Maintenance, 10/01/18 10:08:42 EST, [place], 2 sprays Nares, Both 2 times a [...] 08/02/20 16:13:00 EST, Route to Pharmacy Electronically, [facility] #[id number], D/C RX ON FILE FOR CLARITAN, 165, [...] 3 Refills, Maintenance, 02/25/21 10:31:00 EDT, Tablet, [facility] #[id number], Partial fill upon patient request if the prescription is for a schedule II opioid drug., 165, cm, 01/11/21 14:... Start Date: 02/25/21 Status: Ordered methenamine hippurate 1 gm oral tablet 1 tablet = 1 Gm, By Mouth, 2 times a day, # 60 tablet, 1 Refills, Maintenance, 07/12/20 13:56:00 EST, [facility] #[id number], Partial fill upon patient request if the prescription is for a schedule II opioid drug., 165, cm, 07/11/20 15:24:00 EST,... Start Date: 07/12/20 Stop Date: 07/05/21 Status: Ordered Metoprolol Tartrate 25 mg oral tablet 1 tablet, By Mouth, 2 times a day, # 60 tablet, 2 Refills, Maintenance, 03/07/21 10:08:00 EDT, [facility] #[id number], 165, cm, 02/28/21 14:22:00 EDT, Height, 127, kg, 02/03/20 14:39:00 EDT, DryWeight Start Date: 03/07/21 Status: Ordered Mitigare 0.6 mg oral capsule 1 capsule, By Mouth, Daily, # 30 capsule, 11 Refills, Maintenance, 12/31/20 16:51:00 EDT, [facility] #[id number], 165, cm, 11/19/20 11:32:00 EDT, Height, 127, [...] 0 Refills, Maintenance, 06/18/20 16:57:00 EST, Patch, [facility] #[id number], Partial fill upon patient request, 165, cm, 06/07/20 13:52:00 EST, Height, 127, kg, 02/03/20 14:39:00 EDT, Dry Weight Start Date: 06/18/20 Stop Date: 07/30/20 Status: Ordered NuLYTELY with Flavor Packs oral powder for reconstitution See Instructions, Drink 240mL every 15-20 minutes until first half is gone. Repeat 6 hours prior toprocedure., # 4,000 mL, 0 Refills, Maintenance, 06/28/20 17:09:00 EST, [facility] #[id number],Partial fill upon patient request if the prescript... Start Date: 06/28/20 Status: Ordered oxyCODONE 5 mg oral tablet 10 mg, 2, tablet, By Mouth, Every 8 hours, DX Z79.891 G89.29 M47.816 OK TO FILL LESS THAN PRESCRIBED AMOUNT, # 168 tablet, Refills 0, Tot. Refills 0, Maintenance, 03/25/21 16:45:00 EDT, Route to Pharmacy Electronically, [facility] #[id number], D... Start Date: 03/25/21 Stop Date: 04/22/21 Status: Ordered penicillin V potassium 250 mg oral tablet 1 tablet = 250 mg, By Mouth, 2 times a day, Cellulitis prophylaxis, # 60 tablet, 11 Refills, Maintenance, 10/30/20 12:09:00 EDT, [facility] #[id number], 165, cm, 10/19/20 8:59:00 EDT, Height, 127, kg, 02/03/20 14:39:00 EDT, Dry Weight Start Date: 10/30/20 Status: Ordered predniSONE 5 mg oral tablet 1 tablet = 5 mg, By Mouth, Daily, # 30 tablet, 0 Refills, Maintenance, 01/11/21 14:20:00 EDT, Tablet, [facility] #[id number], Partial fill upon patient request if the [...] 5 Refills, Maintenance, 04/30/20 15:13:00 EDT, Tablet, [facility] #[id number], 165, cm, 04/30/20 14:30:00 EDT, Height, 127, kg, 02/03/20 14:39:00 EDT, Dry Weight Start Date: 04/30/20 Status: Ordered rosuvastatin 10 mg oral tablet 1 tablet = 10 mg, By Mouth, Daily, # 90 tablet, 3 Refills, Maintenance, 05/03/20 16:35:00 EDT, Tablet, [facility] #[id number], d/c rx for capsules, 165, cm, 04/30/20 14:30:00 EDT, Height, 127, kg, 02/03/20 14:39:00 EDT, Dry Weight Start Date: 05/03/20 Status: Ordered Ventolin HFA 108 mcg/inh inhalation aerosol with adapter 2 puffs, Inhalation, Every 4 hours, PRN Wheezing/Shortness of Breath, # 1 each, 5 Refills, Soft Stop, 11/08/20 8:46:00 EDT, [facility] #[id number], 165, cm, 10/19/20 8:59:00 EDT, Height, 127, kg, 02/03/20 14:39:00 EDT, Dry Weight Start Date: 11/08/20 Status: Ordered warfarin 2.5 mg oral tablet See Instructions, take 2.5mg sun sat subjet to change based on INR per MD, # 90 each, 3 Refills, Maintenance, 02/11/21 10:38:00 EDT, Tablet, [facility] #[id number], PLEASE GIVE THIS IN COMBINATION WITH 5MG TABLETS;, 165, cm, 01/11/21... 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
--- OUTSIDE RECORDS SUMMARY | 2024-01-02 21:21 | XMS_ITS | Continuity of Care Document ---
Author Organization [facility] Jane Nolberto lt Address [address] [place] [address]- Care Team Providers Care Striper Machine Name Role Phone Radha GRIDER, Fuentes Kenny Primary Care Physician [facility]): 07[facility]11[facility]20 - 08/10/20 [facility] Adult [address] [place] [address]- Allergies, Adverse Reactions, Alerts Substance Reaction Severity [...] H1N1, inactive(oldterm) 8 05/08/11 Given 1Result Comment: [id number] 2Result Comment: [id number] 3Result Comment: [07/08/2017] [id number] 4Admin Note: [facility] 5Admin Note: [facility] [...] 5 Refills, Maintenance, 07/03/20 9:16:00 EST, Cream, [facility] #[id number], Partial fill upon patient request if the [...] 06/04/20 12:56:00 EST, Route to Pharmacy Electronically, [facility] #[id number], please schedule appt for further refills, 165, cm, 05/16/20 14:15:00 EDT, Hei... Start Date: 06/04/20 Status: Ordered Claritin 10 mg oral tablet 10 mg, 1, tablet, By Mouth, Daily, for 90 days, # 90 tablet, Refills 3, Tot. Refills 3, Acute 07/28/21 15:22:00 EST, 08/02/20 15:22:00 EST, Route to Pharmacy Electronically, [facility] #[id number], 165, cm, 07/31/20 14:32:00 EST, Height, 127, kg,... Start Date: 08/02/20 Stop Date: 07/28/21 Status: Ordered colchicine 0.6 mg oral tablet See Instructions, take 1 tablet by mouth once daily if needed for PSEUDOGOUT pain, # 30 tablet, Refills 5, Tot. Refills 5, Soft Stop, 01/05/20 8:41:00 EDT, Instructions Replace Required Details, Route to Pharmacy Electronically, [facility] #... Start Date: 01/05/20 Status: Ordered Disposable [...] Gm, 3 Refills, Maintenance, 06/22/20 14:58:00 EST, [facility] #[id number], 165, cm, 06/07/20 13:52:00 EST, Height, 127, [...] mL, 5 Refills, Maintenance, 10/01/18 10:08:42 EST, [place], 2 sprays Nares, Both 2 times a [...] 08/02/20 16:13:00 EST, Route to Pharmacy Electronically, [facility] #[id number], D/C RX ON FILE FOR ABRAM, 165, [...] 09/29/20 14:57:00 EST, 07/31/20 14:57:00 EST, Capsule, [facility] #[id number], Partial fill upon patient request if the prescription is for a schedule II opi... Start Date: 07/31/20 Stop Date: 09/29/20 Status: Ordered methenamine hippurate 1 gm oral tablet 1 tablet = 1 Gm, By Mouth, 2 times a day, # 60 tablet, 1 Refills, Maintenance, 07/12/20 13:56:00 EST, [facility] #[id number], Partial fill upon patient request if the prescription is for a schedule II opioid drug., 165, cm, 07/11/20 15:24:00 EST,... Start Date: 07/12/20 Stop Date: 07/05/21 Status: Ordered metoprolol 25 mg oral tablet 25 mg, 1, tablet, By Mouth, 2 times a day, # 60 tablet, Refills 5, Tot. Refills 5, Maintenance, 03/22/20 16:34:00 EDT, Route to Pharmacy Electronically, [facility] #[id number], 165, cm, 02/02/2014:39:00 EDT, Height, 127, kg, [...] 0 Refills, Maintenance, 06/18/20 16:57:00 EST, Patch, [facility] #[id number], Partial fill upon patient request, 165, cm, 06/07/20 13:52:00 EST, Height, 127, kg, 02/03/20 14:39:00 EDT, Dry Weight Start Date: 06/18/20 Stop Date: 07/30/20 Status: Ordered NuLYTELY with Flavor Packs oral powder for reconstitution See Instructions, Drink 240mL every 15-20 minutes until first half is gone. Repeat 6 hours prior toprocedure., # 4,000 mL, 0 Refills, Maintenance, 06/28/20 17:09:00 EST, [facility] #[id number],Partial fill upon patient request if the prescript... Start Date: 06/28/20 Status: Ordered oxyCODONE 10 mg oral tablet 1 tablet = 10 mg, By Mouth, Every 8 hours, DX Z79.891 G89.29 M47.816 OK TO FILL LESS THAN PRESCRIBED AMOUNT, # 84 tablet, 0 Refills, Maintenance, 07/16/20 17:18:00 EST, Tablet, [facility] #[id number], 07/17/20, 165, cm, 07/11/20 15:24:00 EST, He... [...] 5 Refills, Maintenance, 04/30/20 15:13:00 EDT, Tablet, [facility] #[id number], 165, cm, 04/30/20 14:30:00 EDT, Height, 127, kg, 02/03/20 14:39:00 EDT, Dry Weight Start Date: 04/30/20 Status: Ordered rosuvastatin 10 mg oral tablet 1 tablet = 10 mg, By Mouth, Daily, # 90 tablet, 3 Refills, Maintenance, 05/03/20 16:35:00 EDT, Tablet, [facility] #[id number], d/c rx for capsules, 165, cm, 04/30/20 14:30:00 EDT, Height, 127, kg, 02/03/20 14:39:00 EDT, Dry Weight Start Date: 05/03/20 Status: Ordered Ventolin HFA 108 mcg/inh inhalation aerosol with adapter 2 puffs, Inhalation, Every 4 hours, PRN Wheezing/Shortness of Breath, # 1 each, 11 Refills, Soft Stop, 01/19/20 11:46:00 EDT, [facility] #[id number], 165, cm, 01/16/20 6:17:00 EDT, Height, 128.1, kg, 01/16/20 6:17:00 EDT, Dry Weight Start Date: 01/19/20 Status: Ordered warfarin 5 mg oral tablet 1 tablet = 5 mg, By Mouth, Daily, dosing subject to change pending inr lab values, # 30 tablet, 5 Refills, Maintenance, 02/15/20 13:21:00 EDT, Tablet, [facility] #[id number], 165, cm, 02/03/20 14:39:00 EDT, Height, 127, [...]
--- OUTSIDE RECORDS SUMMARY | 2024-01-02 21:21 | XMS_ITS | Continuity of Care Document ---
Author Organization [facility] Buck Nolberto Address [address] [place] [address]- Care Team Providers Care Sonogram Technician Name Role Phone Krishan GRIDER, Eulogio Molina Primary Care Physician [phone] Encounter [facility] Date(s): 11/26/21 - 12/26/21 [facility] [place] Adult [address] [place] [address]- Allergies, Adverse Reactions, Alerts Substance Reaction Severity Status Adhesive Bandage Active Dust copd exac/sinus congestion A ctive Immunizations Given and Recorded Vaccine Date Status Refusal Reason SARS-CoV-2 mRNA (jgvqtam-[id number]-joycr) vax 08/30/21 Recorded influenza virus vaccine, inactivated [...] B adult vaccine 06/14/02 Recorded 1Result Comment: [id number] 2Result Comment: [id number] 3Result Comment: [id number] 4Result Comment: [07/08/2017] 76016-640-97 5Admin Note: [facility] 6Admin Note: [facility] [...] 8.5 Gm, 5 Refills, 05/29/21 17:13:00 EDT, [id number], 17, INHALE 2 PUFFS BY MOUTH EVERY 4 HOURS NEEDED FOR WHEEZING OR SHORTNE... Start Date: 05/29/21 Status: Ordered calcipotriene 0.005% topical cream 1 application, Topically, 2 times a day, # 60 Gm, 11 Refills, Maintenance, 11/15/21 11:54:00 EDT, Cream, [facility], Partial fill upon patient request if the prescription is for a schedule IIopioid drug., 1 application Topically 2 times a day... Start Date: 11/15/21 Status: Ordered colchicine 0.6 mg oral tablet 0.6 mg, 1, tablet, By Mouth, Daily, # 30 tablet, Refills 11, Tot. Refills 11, Maintenance, :00:00 EDT, Route to Pharmacy Electronically, [facility], Partial fill upon patient request if the prescription is for a schedule II opioid drTorey.. Start Date: 10/30/21 Status: Ordered cyclobenzaprine 10 mg oral tablet See Instructions, PRN, 1 tablet By Mouth 3 times a day as needed, # 20 tablet, Refills 0, Tot. Refills 0, Maintenance, for spasm, 11/08/21 10:23:00 EDT, Instructions Replace Required Details, Route to Pharmacy Electronically, [id number]... Start Date: 11/08/21 Status: Ordered digoxin 0.125 mg oral tablet 125 mcg, 1, tablet, By Mouth, Daily, # 90 tablet, Refills 1, Tot. Refills 1, Maintenance, 12/11/21 13:41:00 EDT, Route to Pharmacy Electronically, [facility], Partial fill upon patient request if the prescription is for a schedule II opioid drTorey.. Start Date: 12/11/21 Status: Ordered duloxetine 20 mg oral enteric coated capsule 2 capsule = 40 mg, By Mouth, Daily at bedtime, # 60 capsule, 11 Refills, Maintenance, 06/25/21 12:00:00 EST, Capsule, [facility], Partial fill upon patient request if [...] 5 Refills, Maintenance, 11/18/21 13:49:00 EDT, Tablet, [facility], Partial fill upon patient request if [...] Replace Required Details, Route to Pharmacy Electronically, [facility], 165, cm, 06/25/21 11:35:00 EST, Height, 127, kg, 02/03/20 14:39:00 EDT, Dry Weight Start Date: 08/05/21 Status: Ordered metoprolol 100 mg oral tablet, extended release 100 mg, 1, tablet, By Mouth, Daily, # 90 tablet, Refills 1, Tot. Refills 1, Maintenance, 12/11/21 13:41:00 EDT, Route to Pharmacy Electronically, [facility], Partial fill upon patient requestif the prescription is for a schedule II opioid keanu... Start Date: 12/11/21 Status: Ordered nicotine 4 mg oral transmucosal gum 1 each = 4 mg, Chew, Every 2 hours, PRN as needed for smoking cessation, # 160 each, 2 Refills, Acute 03/05/22 16:36:00 EDT, 12/03/21 16:35:00 EDT, Gum, [facility] #[id number], Partial fill uponpatient request if the prescription is for a schedu... Start Date: 12/03/21 Stop Date: 03/05/22 Status: Ordered NuLYTELY with Flavor Packs oral powder for reconstitution 240 mL, By Mouth, Every 10 minutes, # 1 each, 0 Refills, Maintenance, 10/25/21 10:39:00 EDT, REC Powder, [facility], Partial fill upon patient request if the prescription is for a schedule IIopioid drug., 240 mL By Mouth Every 10 minutes, 165... Start Date: 10/25/21 Status: Ordered penicillin V potassium 250 mg oral tablet 1 tablet, By Mouth, 2 times a day, CELLULITIS PROPHYLAXIS., # 60 tablet, 6 Refills, [facility], 165, cm, 11/08/21 10:02:00 EDT, Height, 127, kg, 02/03/20 14:39:00 EDT, Dry Weight Start Date: 11/15/21 Status: Ordered rOPINIRole 0.5 mg oral tablet 1 tablet, By Mouth, 3 times a day, # 90 tablet, 5 Refills, 11/08/21 9:01:00 EDT, [facility], 165, cm, 11/04/21 8:42:00 EDT, Height, 127, kg, 02/03/20 14:39:00 EDT, Dry Weight Start Date: 11/08/21 Status: Ordered rosuvastatin 10 mg oral tablet See Instructions, TAKE 1 TABLET BY MOUTH DAILY, # 90 tablet, 1 Refills, Maintenance, 10/18/21 21:30:00 EDT, [facility], 165, cm, 09/04/21 14:01:00 EST, Height, [...] 6 Refills, Maintenance, 12/13/21 13:47:00 EDT, Tablet, [facility], Dosing Subject To Change per INR Result per MD,165, cm, 12/06/21 14:01:00 EDT, Height, 102.1, kg,... Start Date: 12/13/21 Status: Ordered warfarin 5 mg oral tablet See Instructions, Dosing Subject To Change Per INR Result per MD, # 30 each, 6 Refills, Maintenance, 12/13/21 14:01:00 EDT, Tablet, [facility], PLEASE GIVE BOTH 5MG TABLETS AND [...]
--- OUTSIDE RECORDS SUMMARY | 2024-01-02 21:22 | XMS_ITS | Continuity of Care Document ---
Author Organization [facility] Buck Nolberto Address [address] [place] [address]- Care Team Providers Care Weave Defect Charting Clerk Name Role Phone Krishan GRIDER, Eulogio Molina Primary Care Physician [facility] Date(s): 04/15/22 - 05/15/22 [facility] Adult [address] [place] [address]- Allergies, Adverse Reactions, Alerts Substance Reaction Severity [...] vaccine, inactivated 05/10/07 Jarrett rded SARS-CoV-2 mRNA ([id number]-wvnq-aafme) vax 08/30/21 Recorded SARS-CoV-2 (COVID-19) mRNA BNT-162b2 vac 01/02/21 Recorded SARS-CoV-2 (COVID-19) mRNA BNT-162b2 vac 12/02/20 Recorded Fluvirin (oldterm) 8 03/22/15 Given Fluzone Preservative-Free (oldterm) 9 03/12/12 Giv en pneumococcal 23-valent vaccine 10/08/11 Given tetanus/diphtheria/pertussis, acel(Tdap) 09/08/11 Given tetanus/diphtheria/pertussis, acel(Tdap) 12/17/06 Recorded influ virus vac, H1N1, inactive(oldterm) 10 05/08/11 Given hepatitis B adult vaccine 06/14/02 Recorded 1Result Comment: [id number] 2Result Comment: [id number] 3Result Comment: [id number] 4Result Comment: [id number] 5Result Comment: [07/08/2017] [id number] 6Admin Note: [facility] 7Admin Note: [facility] [...] Gm, 4 Refills, Maintenance, 04/28/22 13:11:00 EDT, [facility], 17, INHALE 2 PUFFS BY MOUTH EVERY FOUR HOURS NEEDED FOR WHEEZING... Start Date: 04/28/22 Status: Ordered cloNIDine 0.1 mg oral tablet See Instructions, TAKE 1 TABLET BY MOUTH TWICE A DAY NEEDED FOR FOR ANXIETY (VIAL), # 60 tablet,Refills 1, Maintenance, 04/28/22 13:11:00 EDT, Instructions Replace Required Details, Route to Pharmacy Electronically, [facility], 159, cm, 06... Start Date: 04/28/22 Status: Ordered colchicine 0.6 mg oral tablet 0.6 mg, 1, tablet, By Mouth, Daily, # 30 tablet, Refills 11, Tot. Refills 11, Maintenance, :00:00 EDT, Route to Pharmacy Electronically, [facility], Partial fill upon patient request [...] 01/11/22 7:25:00 EDT, Route to Pharmacy Electronically, [facility], Partial fill upon patient request if the prescri... Start Date: 01/11/22 Stop Date: 02/10/22 Status: Ordered duloxetine 20 mg oral enteric coated capsule 2 capsule = 40 mg, By Mouth, Daily at bedtime, # 60 capsule, 11 Refills, Maintenance, 06/25/21 12:00:00 EST, [facility] fill upon patient request [...] Details, [facility], 165, cm, 06/25/21 11:35:00 EST, Height, 127, kg, 02/03/20 14:39:00 EDT, Dry Weight Start Date: 08/05/21 Status: Ordered penicillin V potassium 250 mg oral tablet 1 tablet, By Mouth, 2 times a day, CELLULITIS PROPHYLAXIS., # 60 tablet, 6 Refills, [facility], 165, cm, 11/08/21 10:02:00 EDT, Height, 127, kg, 02/03/20 14:39:00 EDT, Dry Weight Start Date: 11/15/21 Status: Ordered rOPINIRole 0.5 mg oral tablet 1 tablet, By Mouth, 3 times a day, # 90 tablet, 5 Refills, 03/07/22 6:14:00 EDT, [facility], 159, cm, 01/11/22 15:15:00 EDT, Height, 98.8, kg, 01/10/22 9:12:00 EDT, Dry Weight Start Date: 03/07/22 Status: Ordered rosuvastatin 10 mg oral tablet See Instructions, TAKE 1 TABLET BY MOUTH DAILY, # 90 tablet, 1 Refills, Maintenance, 04/04/22 11:35:00 EDT, [facility], 159, cm, 01/11/22 15:15:00 EDT, Height, 98.8, kg, 01/10/22 9:12:00 EDT,Dry Weight Start Date: 04/04/22 Status: Ordered Symbicort 80mcg/4.5mcg Inhaler See Instructions, INHALE 2 PUFFS BY MOUTH TWICE A DAY RINSE MOUTH AND THROAT AFTER USE, # 10.2 Gm, Refills 5, Instructions Replace Required Details, Route to Pharmacy Electronically, [id number], [facility], 159, cm, 01/11/22 15:15:00 EDT... Start Date: 02/13/22 Status: Ordered warfarin 1 mg oral tablet See Instructions, Take 1-10 tablets By Mouth Daily as directed by NEOAvinash, # 150 tablet, 0 Refills, Maintenance, 01/11/22 7:24:00 EDT, Tablet, [facility], Partial fill upon patient [...] Active Gastric banding status Confirmed Active intermediate current use of opiate analgesic Confirmed Active [...] Name: Krishan GRIDER, Eulogio Molina Address: Address: [address] [place] [address]
--- OUTSIDE RECORDS SUMMARY | 2024-01-02 21:22 | XMS_ITS | Continuity of Care Document ---
Author Organization [facility] ter Address [address] [place] [id number]- Care Team Providers Care Commissary Agent Name Role Phone Krishan GRIDER, Eulogio Molina Primary Care Physician [phone] Encounter [facility] Date(s): 01/10/22 - 01/11/[address] [address] Discharge Disposition: A-Transfer VNA/Home Health Attending Physician: Irving Cam MD Admitting Physician: Irving Cam MD Referring Physician: Irving Cam MD Allergies, Adverse Reactions, Alerts Substance Reaction Severity Status Adhesive Bandage Active Dust copd exac/sinus congestion A ctive Immunizations Given and Recorded Vaccine Date Status Refusal Reason SARS-CoV-2 mRNA ([id number]) vax 08/30/21 Recorded influenza virus vaccine, inactivated [...] B adult vaccine 06/14/02 Recorded 1Result Comment: [id number] 2Result Comment: [id number] 3Result Comment: [id number] 4Result Comment: [07/08/2017] [id number] 5Admin Note: [facility] 6Admin Note: [facility] [...] 8.5 Gm, 5 Refills, 05/29/21 17:13:00 EDT, [id number], 17, INHALE 2 PUFFS BY MOUTH EVERY [...] 0 Refills, Maintenance, 01/11/22 7:25:00 EDT, Capsule, [facility], Partial fill upon patient request [...] cm, 01/06/22 14:35:00 EDT, Height, 102.1, kg, 05/... Start Date: 01/09/22 Status: Ordered colchicine 0.6 mg oral tablet 0.6 mg, 1, tablet, By Mouth, Daily, # 30 tablet, Refills 11, Tot. Refills 11, Maintenance, 227:00:00 EDT, Route to Pharmacy Electronically, [facility], Partial fill upon patient request if the prescription is for a schedule II opioid drKatie. Start Date: 10/30/21 Status: Ordered digoxin 0.125 mg oral tablet 0.125 mg, Tablet, By Mouth, 01/11/22 16:00:00 EDT Start Date: 01/11/22 Stop Date: 01/11/22 Status: Completed digoxin 0.125 mg oral tablet 0.125 mg, 1, tablet, By Mouth, Daily, Refills 0, Maintenance, 01/11/22 7:25:00 EDT, Partial fill upon patient request if the prescription is for a schedule II opioid drug. Start Date: 01/11/22 Status: Ordered Dilaudid Tablet 4 mg, Tablet, By Mouth, Every 3 hours, PRN for Pain , Moderate, Routine, 01/10/22 13:59:00 EDT Start Date: 01/10/22 Stop Date: 01/17/22 Status: Ordered docusate sodium 100 mg oral capsule 100 mg, 1, capsule, By Mouth, 2 times a day, hold for loose stool, # 60 capsule, Refills 0, Tot. Refills 0, Maintenance, 01/11/22 7:25:00 EDT, Route to Pharmacy Electronically, [facility], Partial fill upon patient request if [...] 01/18/22 7:26:00 EDT, 01/11/22 7:26:00 EDT, [facility]jection, [facility], Partial fill upon patient request... Start [...] 01/16/22 7:27:00 EDT, 01/11/22 7:26:00 EDT, Tablet, [facility], Partial fill upon patient request if the prescription... Start Date: 01/11/22 Stop Date: 01/16/22 Status: Ordered loratadine 10 mg oral tablet See Instructions, TAKE 1 TABLET BY MOUTH ONCE A DAY, # 90 tablet, Refills 1, Instructions Replace Required Details, Route to Pharmacy Electronically, [facility], 165, cm, 06/25/21 11:35:00 EST, Height, [...] 12/11/21 13:41:00 EDT, Route to Pharmacy Electronically, [facility], Partial fill upon patient requestif the prescription is for a schedule II opioid keanu... Start Date: 12/11/21 Status: Ordered metoprolol 25 mg oral tablet, extended release 75 mg, XL Tablet, By Mouth, 01/11/22 9:00:00 EDT Start Date: 01/11/22 Stop Date: 01/11/22 Status: Completed Milk of Magnesia Liquid 30 mL, By [...] 03/05/22 16:36:00 EDT, 12/03/21 16:35:00 EDT, Gum, [facility] #[id number], Partial fill uponpatient request if the prescription [...] CELLULITIS PROPHYLAXIS., # 60 tablet, 6 Refills, [facility], 165, cm, 11/08/21 10:02:00 EDT, Height, 127, kg, 02/03/20 14:39:00 EDT, Dry Weight Start Date: 11/15/21 Status: Ordered rOPINIRole 0.5 mg oral tablet 1 tablet, By Mouth, 3 times a day, # 90 tablet, 5 Refills, 11/08/21 9:01:00 EDT, [facility], 165, cm, 11/04/21 8:42:00 EDT, Height, 127, kg, 02/03/20 14:39:00 EDT, Dry Weight Start Date: 11/08/21 Status: Ordered rosuvastatin 10 mg oral tablet See Instructions, TAKE 1 TABLET BY MOUTH DAILY, # 90 tablet, 1 Refills, Maintenance, 10/18/21 21:30:00 EDT, [facility], 165, cm, 09/04/21 14:01:00 EST, Height, [...] 01/18/22 7:28:00 EDT, 01/11/22 7:28:00 EDT, Tablet, [facility], Partial fill upon patient request if the prescription is... 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 Keep leg straight; 2 Views TECHNIQUE: AP and lateral views. COMPARISON: 03/21/2020 FINDINGS: The patient has had a total knee replacement. There is satisfactory positioning of the femoral and tibial components of the knee replacement. There is no fracture. IMPRESSION: 1. Satisfactory initial postoperative appearance total knee replacement. 2. No fracture seen WSN: [id number] Ordering Physician: Antonina Johnson Dictated By: Betito Verma MD Dictated Date/Time: 01/10/22 11:05 p Reviewed By: Betito Verma MD Signed By: Betito Verma MD Signed Date/Time: 01/10/22 11:05 pm Transcribed By: MILADYS Transcribed Date/Time: 01/10/22 11:04 pm Vital Signs Most recent to oldest [Reference Range]: 1 2 3 Height 159 cm (01/11/22 3:15 PM) 159 cm (01/11/22 9:59 AM) 159 cm (01/11/22 6:35 AM) Weight 98.8 kg (01/10/22 11:51 AM) 98.8 kg (01/10/22 9:12 AM) 100.5 kg (01/10/22 8:10 AM) Oxygen Saturation [94-100 %] 95 % (01/11/22 3:15 PM) 93 % *L* (01/11/22 9:59 AM) 95 % (01/11/22 6:35 AM) Pulse Rate [55-90 bpm] 55 bpm (01/11/22 4:04 PM) 50 bpm *L* (01/11/22 3:15 PM) 55 bpm (01/11/22 9:59 AM) Body Mass Index [18.5-24.99] 39.08 *>HHI* (01/10/22 11:51 AM) 39.08 *>HHI* (01/10/22 9:12 AM) Blood Pressure [90-138/55-84 mm Hg] 97/61mm Hg (01/11/22 3:15 PM) 132/85mm Hg (01/11/22 9:59 AM) 114/69mm Hg (01/11/22 7:41 AM) Respiratory Rate [16-30 br/min] 18 br/min (01/11/22 3:15 PM) 18 br/min (01/11/22 3:08 PM) 18 br/min (01/11/22 12:21 PM) Temperature [96.8-100.4 DegF] 97.8 DegF (01/11/22 9:59 AM) 97.7 DegF (01/11/22 6:35 AM) 97.7 DegF (01/11/22 3:59 AM) Liters per Minute 2 L/min (01/11/22 6:35 AM) 2 L/min (01/11/22 3:59 AM) 2 L/min (01/10/22 6:44 PM) Mode of Delivery (Oxygen) Room air (01/11/22 3:15 PM) Room air (01/11/22 9:59 AM) Nasal cannula (01/11/22 6:35 AM) Blood pressure sites Arm, left (01/11/22 3:15 PM) Arm, right (01/11/22 9:59 AM) Arm, right (01/11/22 6:35 AM) Temperature Route Oral (01/11/22 9:59 AM) Oral (01/11/22 6:35 AM) Oral (01/11/22 3:59 AM) Dry Weight 98.8 kg (01/10/22 9:12 AM) Weight Obtained Via Bed scale (01/10/22 8:10 AM) Social History Social History Type Response Smoking Status 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
--- OUTSIDE RECORDS SUMMARY | 2024-01-02 21:22 | XMS_ITS | Continuity of Care Document ---
Author Organization [facility] Buck Nolberto Address [address] [place] [address]- Care Team Providers Care Candle Wrapper Name Role Phone Krishan GRIDER, Eulogio Molina Primary Care Physician [facility] Date(s): 12/18/21 - 01/17/22 [facility] Adult [address] [place] [address]- Allergies, Adverse Reactions, Alerts Substance Reaction Severity Status Adhesive Bandage Active Dust copd exac/sinus congestion A ctive Immunizations Given and Recorded Vaccine Date Status Refusal Reason SARS-CoV-2 mRNA ([id number]) vax 08/30/21 Recorded influenza virus vaccine, inactivated [...] B adult vaccine 06/14/02 Recorded 1Result Comment: [id number] 2Result Comment: [id number] 3Result Comment: [id number] 4Result Comment: [07/08/2017] [id number] 5Admin Note: [facility] 6Admin Note: [facility] [...] 8.5 Gm, 5 Refills, 05/29/21 17:13:00 EDT, [facility][id number], 17, INHALE 2 PUFFS BY MOUTH EVERY [...] Route to Pharmacy Electronically, [facility], 165, cm, 01/06/22 14:35:00 EDT, Height, 102.1, kg, ... Start Date: 01/09/22 Status: Ordered colchicine 0.6 mg oral tablet 0.6 mg, 1, tablet, By Mouth, Daily, # 30 tablet, Refills 11, Tot. Refills 11, Maintenance, 227:00:00 EDT, Route to Pharmacy Electronically, [facility], Partial fill upon patient [...] 06/25/21 12:00:00 EST, Capsule, [facility], Partial fill upon patient [...] 01/18/22 7:26:00 EDT, 01/11/22 7:26:00 EDT, Injection, [facility], Partial fill upon patient request... Start [...] Replace Required Details, [facility], 165, cm, 06/25/21 11:35:00 EST, Height, [...] 12/11/21 13:41:00 EDT, Route to Pharmacy Electronically, [facility], Partial fill upon patient requestif the [...] 03/05/22 16:36:00 EDT, 12/03/21 16:35:00 EDT, Gum, [facility] #[id number], Partial fill uponpatient request if the prescription [...] PROPHYLAXIS., # 60 tablet, 6 Refills, [facility], 165, cm, 11/08/21 10:02:00 EDT, Height, 127, kg, 02/03/20 14:39:00 EDT, Dry Weight Start Date: 11/15/21 Status: Ordered rOPINIRole 0.5 mg oral tablet 1 tablet, By Mouth, 3 times a day, # 90 tablet, 5 Refills, 11/08/21 9:01:00 EDT, [facility], 165, cm, 11/04/21 8:42:00 EDT, Height, 127, kg, 02/03/20 14:39:00 EDT, Dry Weight Start Date: 11/08/21 Status: Ordered rosuvastatin 10 mg oral tablet See Instructions, TAKE 1 TABLET BY MOUTH DAILY, # 90 tablet, 1 Refills, Maintenance, 10/18/21 21:30:00 EDT, [facility], 165, cm, 09/04/21 14:01:00 [...] 01/18/22 7:28:00 EDT, 01/11/22 7:28:00 EDT, Tablet, [facility], Partial fill upon patient request [...]
--- OUTSIDE RECORDS SUMMARY | 2024-01-02 21:22 | XMS_ITS | Continuity of Care Document ---
Author Organization [facility] Robin Jane Nolberto lt Address [address] [place] [address]- Care Team Providers Care Management Lecturer Name Role Phone Krishan GRIDER, Eulogio Molina Primary Care Physician Encounter [facility] Date(s): 10/13/22 - 11/12/22 [facility] Robin Bolañosley Adult [address] [place] [address]- Attending Physician: Admtr, Ar8 Admitting Physician: Admtr, [...] vaccine, inactivated 05/10/07 Jarrett rded SARS-CoV-2 mRNA ([id number]) vax 08/30/21 Recorded SARS-CoV-2 (COVID-19) mRNA BNT-162b2 vac 01/02/21 Recorded SARS-CoV-2 (COVID-19) mRNA BNT-162b2 vac 12/02/20 Recorded Fluvirin (oldterm) 8 03/22/15 Given Fluzone Preservative-Free (oldterm) 9 03/12/12 Giv en pneumococcal 23-valent vaccine 10/08/11 Given tetanus/diphtheria/pertussis, acel(Tdap) 09/08/11 Given tetanus/diphtheria/pertussis, acel(Tdap) 12/17/06 Recorded influ virus vac, H1N1, inactive(oldterm) 10 05/08/11 Given hepatitis B adult vaccine 06/14/02 Recorded 1Result Comment: [id number] 2Result Comment: [id number] 3Result Comment: [id number] 4Result Comment: [id number] 5Result Comment: [07/08/2017] 24808-770-79 6Admin Note: [facility] 7Admin Note: [facility] [...] Gm, 4 Refills, Maintenance, 09/08/22 14:55:00 EST, [facility], 30, INHALE 2 PUFFS BY MOUTH EVERY FOUR HOURS NEEDED FOR WHEEZING... Start Date: 09/08/22 Status: Ordered cloNIDine 0.1 mg oral tablet 1, tablet, By Mouth, 2 times a day, PRN, # 56 tablet, Refills 2, Maintenance, NEEDED FOR FOR ANXIETY (VIAL) ^VIAL, 10/03/22 11:23:00 EST, Route to Pharmacy Electronically, [facility], 160,cm, 09/09/22 14:31:00 EST, Height, 98.8, kg, 12/22/... Start Date: 10/03/22 Status: Ordered colchicine 0.6 mg oral tablet 1, tablet, By Mouth, Daily, ^1R1., # 30 tablet, Refills 11, Maintenance, 09/10/22 5:31:00 EST, Route to Pharmacy Electronically, [facility], 160, cm, 09/09/22 14:31:00 EST, Height, 98.8, kg, 07/17/22 8:58:00 EST, Dry Weight Start Date: 09/10/22 Status: Ordered docusate sodium 100 mg oral capsule 100 mg, 1, capsule, By Mouth, 2 times a day, hold for loose stool, # 60 capsule, Refills 0, Tot. Refills 0, Maintenance, 01/11/22 7:25:00 EDT, Route to Pharmacy Electronically, [facility], Partial fill upon patient request if the prescri... Start Date: 01/11/22 Stop Date: 02/10/22 Status: Ordered duloxetine 20 mg oral enteric coated capsule 2 capsule = 40 mg, By Mouth, Daily at bedtime, # 60 capsule, 11 Refills, Maintenance, 06/25/21 12:00:00 EST, Capsule, [facility], Partial fill upon patient request [...] Acute 03/16/23 6:08:00 EDT, 10/14/22 6:08:00 EDT, [place], [facility] #[id number], Partial fill upon patient request if the [...] 11/06/22 6:52:00 EDT, Route to Pharmacy Electronically, [facility], 160, cm, 10/13/22 16:25:00 EDT, [...] 5 Refills, Maintenance, 07/29/22 6:50:00 EST, Tablet, [facility], Partial fill upon patient request if the prescription is for a schedule II opioid drug., 160, cm, 07/18/22 11:39:00 EST,... Start Date: 07/29/22 Status: Ordered penicillin V potassium 250 mg oral tablet 1 tablet = 250 mg, By Mouth, 2 times a day, CELLULITIS PROPHYLAXIS, # 60 tablet, 5 Refills, Maintenance, 11/06/22 17:25:00 EDT, Tablet, [facility], Partial fill upon patient request if the prescription is for a schedule II opioid drug., 160, c... Start Date: 11/06/22 Stop Date: 05/05/23 Status: Ordered predniSONE 10 mg oral tablet 1 tablet, By Mouth, Daily, ^1R1., # 30 tablet, 2 Refills, Maintenance, 11/05/22 7:06:00 EDT, [facility], 160, cm, 10/13/22 16:25:00 EDT, Height, 98.8, kg, 07/17/22 8:58:00 EST, Dry Weight Start Date: 11/05/22 Status: Ordered rOPINIRole 0.5 mg oral tablet See Instructions, TAKE 1 TABLET BY MOUTH THREE TIMES DAILY^1R1,1R3,1R4, # 90 tablet, 5 Refills, Maintenance, 07/24/22 23:41:00 EST, [facility], 160, cm, 07/18/22 11:39:00 EST, Height, 98.8, kg, 07/17/22 8:58:00 EST, Dry Weight Start Date: 07/24/22 Status: Ordered rosuvastatin 10 mg oral tablet 1 tablet, By Mouth, Daily, ^1R1., # 30 tablet, 5 Refills, Maintenance, 09/10/22 5:31:00 EST, [facility], 160, cm, 09/09/22 14:31:00 EST, Height, 98.8, kg, 07/17/22 8:58:00 EST, Dry Weight Start Date: 09/10/22 Status: Ordered Symbicort 80mcg/4.5mcg Inhaler See Instructions, INHALE 2 PUFFS BY MOUTH TWICE A DAY RINSE MOUTH AND THROAT AFTER USE, # 10.2 Gm, Refills 5, Maintenance, 07/30/22 21:16:00 EST, Instructions Replace Required Details, Route to Pharmacy Electronically, [id number], [facility]... 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 Patient Education Information Follow-up Details: Patient Education Material: * Tamie Mccormick: PERFORM Event Display: Radiology Results Scanned Authored Date: Cardiology Consult note * Event Display: Consult Note Cardiology Authored Date: Patient Care team information Care Team Personnel Name: Sandra Wills NP Position: [facility] PCO Associate Professional Member Role: Primary Care Nurse Address: Address: [address] [place] [address]- [place] Name: Marley Alejo RN Position: [facility] RN Member Role: Primary Care Nurse Name: Eulogio Nickerson MD Position: [facility] Primary Care Physician Member Role: PCP Address: Address: [address] [place] [address]- [place] Name: Alma Delia Fonseca PharmD Position: [facility] Associate Professional Member Role: Lifetime Consulting Provider Address: Address: [address] [place] [address] [place] [address]- [place] Name: Yolis Mattson RN Position: S RN Member Role: Primary Care Nurse Name: Priscila Garzon RN Position: S RN Member Role: Primary Care Nurse Name: Renea Mart RN Position: S RN Member Role: Primary Care Nurse Care Team Related Persons Name: FAUZIA JANSEN Address: home [address] [place] [address] Name: AURELIA SHETH Address: [address] [place] [address] Name: BRE OSORIO Address: home [address] [place] [address]
--- OUTSIDE RECORDS SUMMARY | 2024-01-02 21:22 | XMS_ITS | Continuity of Care Document ---
Author Organization [facility] Robin Jane Nolberto Address [address] [place] [address]- Care Team Providers Care Release And Technical Records Clerk Name Role Phone Fuentes Garcia MD Primary Care Physician [facility]counter [facility] Date(s): 09/10/20 - 10/10/20 [facility] Robin Bolañosley Adult [address] [place] [address]- Allergies, Adverse Reactions, Alerts Substance Reaction Severity [...] H1N1, inactive(oldterm) 8 05/08/11 Given 1Result Comment: [id number] 2Result Comment: [id number] 3Result Comment: [07/08/2017] 21958-546-68 4Admin Note: [facility] 5Admin Note: [facility] [...] 5 Refills, Maintenance, 07/03/20 9:16:00 EST, Cream, [facility] #[id number], Partial fill upon patient request if the [...] 06/04/20 12:56:00 EST, Route to Pharmacy Electronically, [facility] #[id number], please schedule appt for further refills, 165, cm, 05/16/20 14:15:00 EDT, Hei... Start Date: 06/04/20 Status: Ordered Claritin 10 mg oral tablet 10 mg, 1, tablet, By Mouth, Daily, for 90 days, # 90 tablet, Refills 3, Tot. Refills 3, Acute 07/28/21 15:22:00 EST, 08/02/20 15:22:00 EST, Route to Pharmacy Electronically, [facility] #[id number], 165, cm, 07/31/20 14:32:00 EST, Height, 127, kg,... Start Date: 08/02/20 Stop Date: 07/28/21 Status: Ordered colchicine 0.6 mg oral tablet See Instructions, take 1 tablet by mouth once daily if needed for PSEUDOGOUT pain, # 30 tablet, Refills 5, Tot. Refills 5, Soft Stop, 01/05/20 8:41:00 EDT, Instructions Replace Required Details, Route to Pharmacy Electronically, [facility] #... Start Date: 01/05/20 Status: Ordered [...] Gm, 3 Refills, Maintenance, 06/22/20 14:58:00 EST, [facility] #[id number], 165, cm, 06/07/20 13:52:00 EST, Height, 127, [...] mL, 5 Refills, Maintenance, 10/01/18 10:08:42 EST, [place], 2 sprays Nares, Both 2 times a [...] 08/02/20 16:13:00 EST, Route to Pharmacy Electronically, [facility] #[id number], D/C RX ON FILE FOR ABRAM, 165, [...] tablet, 1 Refills, Maintenance, 07/12/20 13:56:00 EST, [facility] #[id number], Partial fill upon patient request if the prescription is for a schedule II opioid drug., 165, cm, 07/11/20 15:24:00 EST,... Start Date: 07/12/20 Stop Date: 07/05/21 Status: Ordered metoprolol 25 mg oral tablet 25 mg, 1, tablet, By Mouth, 2 times a day, # 60 tablet, Refills 5, Tot. Refills 5, Maintenance, 09/22/20 13:59:00 EST, Route to Pharmacy Electronically, [facility] #[id number], 165, cm, 07/31/2113:32:00 EST, Height, 127, kg, [...] 0 Refills, Maintenance, 06/18/20 16:57:00 EST, Patch, [facility] #[id number], Partial fill upon patient request, 165, cm, 06/07/20 13:52:00 EST, Height, 127, kg, 02/03/20 14:39:00 EDT, Dry Weight Start Date: 06/18/20 Stop Date: 07/30/20 Status: Ordered NuLYTELY with Flavor Packs oral powder for reconstitution See Instructions, Drink 240mL every 15-20 minutes until first half is gone. Repeat 6 hours prior toprocedure., # 4,000 mL, 0 Refills, Maintenance, 06/28/20 17:09:00 EST, [facility] #[id number],Partial fill upon patient request if the prescript... Start Date: 06/28/20 Status: Ordered oxyCODONE 10 mg oral tablet 1 tablet = 10 mg, By Mouth, Every 8 hours, DX Z79.891 G89.29 M47.816 OK TO FILL LESS THAN PRESCRIBED AMOUNT, # 84 tablet, 0 Refills, Maintenance, 10/08/20 16:54:00 EDT, Tablet, [facility] #[id number], 10/09/20, 165, cm, 07/31/20 14:32:00 EST, He... [...] 5 Refills, Maintenance, 04/30/20 15:13:00 EDT, Tablet, [facility] #[id number], 165, cm, 04/30/20 14:30:00 EDT, Height, 127, kg, 02/03/20 14:39:00 EDT, Dry Weight Start Date: 04/30/20 Status: Ordered rosuvastatin 10 mg oral tablet 1 tablet = 10 mg, By Mouth, Daily, # 90 tablet, 3 Refills, Maintenance, 05/03/20 16:35:00 EDT, Tablet, [facility] #[id number], d/c rx for capsules, 165, cm, 04/30/20 14:30:00 EDT, Height, 127, kg, 02/03/20 14:39:00 EDT, Dry Weight Start Date: 05/03/20 Status: Ordered Ventolin HFA 108 mcg/inh inhalation aerosol with adapter 2 puffs, Inhalation, Every 4 hours, PRN Wheezing/Shortness of Breath, # 1 each, 11 Refills, Soft Stop, 01/19/20 11:46:00 EDT, [facility] #[id number], 165, cm, 01/16/20 6:17:00 EDT, Height, 128.1, kg, 01/16/20 6:17:00 EDT, Dry Weight Start Date: 01/19/20 Status: Ordered warfarin 5 mg oral tablet 1 tablet = 5 mg, By Mouth, Daily, dosing subject to change pending inr lab values, # 30 tablet, 11 Refills, Maintenance, 08/31/20 15:36:00 EST, Tablet, [facility] #[id number], 165, cm, 07/31/20 14:32:00 EST, Height, 127, [...] use(Confirmed) Active Gastric banding status(Confirmed) Active 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
--- OUTSIDE RECORDS SUMMARY | 2024-01-02 21:22 | XMS_ITS | Continuity of Care Document ---
Author Organization [facility] Robin Jane Nolberto Address [address] [place] [address]- Care Team Providers Care Store Custodian Name Role Phone Kyle Ahumada DO Primary Care Physician [facility]counter [facility] Date(s): 10/09/23 - 11/08/23 [facility] Robin Bolañosley Adult [address] [place] [address]- Allergies, Adverse Reactions, Alerts Substance Reaction Severity [...] vaccine, inactivated 05/10/07 Jarrett rded SARS-CoV-2 mRNA ([id number]) vax 08/30/21 Recorded SARS-CoV-2 (COVID-19) mRNA BNT-162b2 [...] Comment: PCV 20 [facility]#4658-0441-24 2Result Comment: Flu [facility]#64523-900-98 3Result Comment: [id number] 4Result Comment: [id number] 5Result Comment: [id number] 6Result Comment: [id number] 7Result Comment: [07/08/2017] [id number] 8Admin Note: [facility] 9Admin Note: [facility] 9-13 10Admin Note: Given at [facility] 11Admin Note: 03-11-12 GIVEN AT [facility] 12Admin Note: rcvd elsewhere Medications acetaminophen 325 mg oral tablet 2, tablet, By Mouth, Every 6 hours, PRN, # 100 tablet, Refills 5, Maintenance, NEEDED FOR MODERATE PAIN (VIAL), 09/14/23 15:41:00 EST, Route to Pharmacy Electronically, [facility], 160, cm, 07/07/23 15:02:00 EST, Height, 112.4, kg, 06/24/23... Start Date: 09/14/23 Status: Ordered Albuterol (Eqv-ProAir HFA) 90 mcg/inh inhalation aerosol 2 puffs, Inhalation, Every 4 hours, PRN NEEDED FOR WHEEZING OR FOR SHORTNESS OF BREATH (BULK), #8.5 Gm, 5 Refills, Maintenance, 07/25/23 11:45:00 EST, [facility], 17, INHALE 2 PUFFS BY MOUTH [...] 15:53:00 EDT, Route to Pharmacy Electronically, [facility], 160, cm, 07/07/2315:02:00 EST, Height, 112.4, kg, 06/24/23 17:38:00... Start Date: 10/07/23 Status: Ordered cyclobenzaprine 5 mg oral tablet 1 tablet, By Mouth, 3 times a day, PRN NEEDED, SPASM (VIAL., # 90 tablet, 3 Refills, Maintenance, 08/19/23 10:07:00 EST, [facility], 160, cm, 07/07/23 15:02:00 EST, Height, 112.4, kg, 06/24/23 17:38:00 EST, Dry Weight Start Date: 08/19/23 Status: Ordered docusate sodium 100 mg oral capsule 100 mg, 1, capsule, By Mouth, 2 times a day, hold for loose stool, # 180 capsule, Refills 3, Tot. Refills 3, Maintenance, 03/13/23 16:56:00 EDT, Route to Pharmacy Electronically, [facility], Partial fill upon patient request if the prescriptio... Start Date: 03/13/23 Stop Date: 04/12/23 Status: Ordered duloxetine 20 mg oral enteric coated capsule 2 capsule = 40 mg, By Mouth, Daily at bedtime, # 60 capsule, 11 Refills, Maintenance, 06/25/21 12:00:00 EST, Capsule, [facility], Partial fill upon patient request [...] Replace Required Details, Route to Pharmacy Electronically, [facility], 160, cm, 07/07/23 15:02:00 EST, Height,... Start Date: 07/28/23 Status: Ordered furosemide 40 mg oral tablet 40 mg, 1, tablet, By Mouth, Daily, # 90 tablet, Refills 1, Tot. Refills 1, Maintenance, 03/02/23 18:12:00 EDT, Route to Pharmacy Electronically, [facility], Partial fill upon patient request if the prescription is for a schedule II opioid drug... Start Date: 03/02/23 Status: Ordered gabapentin 300 mg oral capsule 300 mg, 1, capsule, By Mouth, 3 times a day, # 90 capsule, Refills 2, Tot. Refills 2, Maintenance, 09/09/23 17:17:00 EST, Route to Pharmacy Electronically, [facility], Partial fill upon patient request if [...] Refills, Maintenance, 08/11/23 7:46:00 EST, [facility], 30, INSTILL 2 SPRAYS IN EACH [...] 07/01/23 14:32:00 EST, Route to Pharmacy Electronically, [facility], 160, cm, 06/26/23 11:21:00 EST, Height, 112.4, kg, 06/24/23 17:38:00 EST, Dry Weight Start Date: 07/01/23 Status: Ordered metFORMIN 500 mg oral tablet 1 tablet = 500 mg, By Mouth, 2 times a day, # 60 tablet, 5 Refills, Maintenance, 07/07/23 15:26:00 EST, Tablet, [facility], Partial fill upon patient request if the prescription is for a schedule II opioid drug., 160, cm, 07/07/23 15:02:00 EST... Start Date: 07/07/23 Stop Date: 01/03/24 Status: Ordered nicotine 21 mg/24 hr transdermal film, extended release 1 patch, Topically, Daily, # 28 patch, 3 Refills, Maintenance, 09/14/23 15:41:00 EST, [facility], 28, APPLY 1 PATCH [...] tablet, 5 Refills, Maintenance, 08/19/23 10:06:00 EST, [facility], 160, cm, 07/07/23 15:02:00 EST, Height, 112.4, kg, 06/24/23 17:38:00 EST,Dry Weight Start Date: 08/19/23 Status: Ordered rOPINIRole 0.5 mg oral tablet 1 tablet, By Mouth, 3 times a day, ^1R1,1R3,1R4., # 90 tablet, 5 Refills, Maintenance, 10/11/23 20:09:00 EDT, [facility], 160, cm, 07/07/23 15:02:00 EST, Height, 112.4, kg, 06/24/23 17:38:00 EST, Dry Weight Start Date: 10/11/23 Status: Ordered rosuvastatin 10 mg oral tablet 1 tablet, By Mouth, Daily, ^1R1., # 30 tablet, 5 Refills, Maintenance, 07/01/23 14:33:00 EST, [facility], 160, cm, 06/26/23 11:21:00 EST, Height, 112.4, kg, 06/24/23 17:38:00 EST, Dry Weight Start Date: 07/01/23 Status: Ordered Symbicort 160mcg/4.5mcg Inhaler 2, puffs, Inhalation, 2 times a day, # 10.2 Gm, Refills 11, Tot. Refills 11, Maintenance, 06/03/23 11:47:00 EST, Aerosol, Route to Pharmacy Electronically, [id number], [facility], 160, cm, 06/03/23 11:30:00 EST, Height, [...] 30 tablet, 5 Refills, Maintenance, 10/26/23 10:04:00 EDT,[facility], 160, cm, 10/16/23 10:41:00 EDT, Height, [...] Team Personnel Name: Sandra Wills NP Position: [facility] PCO Associate Professional Member Role: Primary Care Nurse Address: Address: [address] [place] [address] [place] [address]- Name: Marley Alejo RN Position: [facility] RN Member Role: Primary Care Nurse Name: Rashi Dewitt RN Position: [facility] RN Member Role: Primary Care Nurse Name: Alma Delia Fonseca PharmD Position: [facility] Associate Professional Member Role: Lifetime Consulting Provider Address: Address: [address] [place] [address] [place] [address]- [place] Name: Priscila Garzon RN Position: [facility] RN Member Role: Primary Care Nurse Name: Kyle Ahumada DO Position: [facility] Physician - Primary Care Member Role: PCP Address: Address: [address] [place] [address]- [place] Name: Renea Mart RN Position: [facility] RN Member Role: Primary Care Nurse Care Team Related Persons Name: FAUZIA JANSEN Address: home [address] [place] [address] Name: AURELIA SHETH Address: [address] [place] [address] Name: BRE OSORIO Address: home [address] [place] [address]
--- OUTSIDE RECORDS SUMMARY | 2024-01-02 21:22 | XMS_ITS | Continuity of Care Document ---
Author Organization [facility] Robin Jane Nolberto lt Address [address] [place] [address]- Care Team Providers Care Supervisor Blueprinting And Photocopy Name Role Phone Radha GRIDER, Fuentes Kenny Primary Care Physician [phone] [facility]counter [facility] Date[facility]s): 07/25/20 - 08/24/20 [facility] Adult [address] [place] [address]- Allergies, Adverse Reactions, Alerts Substance Reaction Severity [...] H1N1, inactive(oldterm) 8 05/08/11 Given 1Result Comment: [id number] 2Result Comment: [id number] 3Result Comment: [07/08/2017] [id number] 4Admin Note: [facility] 5Admin Note: [facility] [...] 5 Refills, Maintenance, 07/03/20 9:16:00 EST, Cream, [facility] #[id number], Partial fill upon patient request if the [...] 06/04/20 12:56:00 EST, Route to Pharmacy Electronically, [facility] #[id number], please schedule appt for further refills, 165, cm, 05/16/20 14:15:00 EDT, Hei... Start Date: 06/04/20 Status: Ordered Claritin 10 mg oral tablet 10 mg, 1, tablet, By Mouth, Daily, for 90 days, # 90 tablet, Refills 3, Tot. Refills 3, Acute 07/28/21 15:22:00 EST, 08/02/20 15:22:00 EST, Route to Pharmacy Electronically, [facility] #[id number], 165, cm, 07/31/20 14:32:00 EST, Height, 127, kg,... Start Date: 08/02/20 Stop Date: 07/28/21 Status: Ordered colchicine 0.6 mg oral tablet See Instructions, take 1 tablet by mouth once daily if needed for PSEUDOGOUT pain, # 30 tablet, Refills 5, Tot. Refills 5, Soft Stop, 01/05/20 8:41:00 EDT, Instructions Replace Required Details, Route to Pharmacy Electronically, [facility] #... Start Date: 01/05/20 Status: Ordered Disposable [...] Gm, 3 Refills, Maintenance, 06/22/20 14:58:00 EST, [facility] #[id number], 165, cm, 06/07/20 13:52:00 EST, Height, 127, [...] mL, 5 Refills, Maintenance, 10/01/18 10:08:42 EST, [facility], 2 sprays Nares, Both 2 times a [...] 08/02/20 16:13:00 EST, Route to Pharmacy Electronically, [facility] #[id number], D/C RX ON FILE FOR ABRAM, 165, [...] 09/29/20 14:57:00 EST, 07/31/20 14:57:00 EST, Capsule, [facility] #[id number], Partial fill upon patient request if the prescription is for a schedule II opi... Start Date: 07/31/20 Stop Date: 09/29/20 Status: Ordered methenamine hippurate 1 gm oral tablet 1 tablet = 1 Gm, By Mouth, 2 times a day, # 60 tablet, 1 Refills, Maintenance, 07/12/20 13:56:00 EST, [facility] #[id number], Partial fill upon patient request if the prescription is for a schedule II opioid drug., 165, cm, 07/11/20 15:24:00 EST,... Start Date: 07/12/20 Stop Date: 07/05/21 Status: Ordered metoprolol 25 mg oral tablet 25 mg, 1, tablet, By Mouth, 2 times a day, # 60 tablet, Refills 5, Tot. Refills 5, Maintenance, 03/22/20 16:34:00 EDT, Route to Pharmacy Electronically, [facility] #[id number], 165, cm, 02/02/2014:39:00 EDT, Height, 127, kg, [...] 0 Refills, Maintenance, 06/18/20 16:57:00 EST, Patch, [facility] #[id number], Partial fill upon patient request, 165, cm, 06/07/20 13:52:00 EST, Height, 127, kg, 02/03/20 14:39:00 EDT, Dry Weight Start Date: 06/18/20 Stop Date: 07/30/20 Status: Ordered NuLYTELY with Flavor Packs oral powder for reconstitution See Instructions, Drink 240mL every 15-20 minutes until first half is gone. Repeat 6 hours prior toprocedure., # 4,000 mL, 0 Refills, Maintenance, 06/28/20 17:09:00 EST, [facility] #[id number],Partial fill upon patient request if the prescript... Start Date: 06/28/20 Status: Ordered oxyCODONE 10 mg oral tablet 1 tablet = 10 mg, By Mouth, Every 8 hours, DX Z79.891 G89.29 M47.816 OK TO FILL LESS THAN PRESCRIBED AMOUNT, # 84 tablet, 0 Refills, Maintenance, 08/14/20 14:32:00 EST, Tablet, [facility] #[id number], 08/14/20, 165, cm, 07/31/20 14:32:00 EST, He... [...] 5 Refills, Maintenance, 04/30/20 15:13:00 EDT, Tablet, [facility] #[id number], 165, cm, 04/30/20 14:30:00 EDT, Height, 127, kg, 02/03/20 14:39:00 EDT, Dry Weight Start Date: 04/30/20 Status: Ordered rosuvastatin 10 mg oral tablet 1 tablet = 10 mg, By Mouth, Daily, # 90 tablet, 3 Refills, Maintenance, 05/03/20 16:35:00 EDT, Tablet, [facility] #[id number], d/c rx for capsules, 165, cm, 04/30/20 14:30:00 EDT, Height, 127, kg, 02/03/20 14:39:00 EDT, Dry Weight Start Date: 05/03/20 Status: Ordered Ventolin HFA 108 mcg/inh inhalation aerosol with adapter 2 puffs, Inhalation, Every 4 hours, PRN Wheezing/Shortness of Breath, # 1 each, 11 Refills, Soft Stop, 01/19/20 11:46:00 EDT, [facility] #[id number], 165, cm, 01/16/20 6:17:00 EDT, Height, 128.1, kg, 01/16/20 6:17:00 EDT, Dry Weight Start Date: 01/19/20 Status: Ordered warfarin 5 mg oral tablet 1 tablet = 5 mg, By Mouth, Daily, dosing subject to change pending inr lab values, # 30 tablet, 5 Refills, Maintenance, 02/15/20 13:21:00 EDT, Tablet, [facility] #[id number], 165, cm, 02/03/20 14:39:00 EDT, Height, 127, [...] long-term use(Confirmed) Active Gastric banding status(Confirmed) Active 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
--- OUTSIDE RECORDS SUMMARY | 2024-01-02 21:22 | XMS_ITS | Continuity of Care Document ---
Author Organization [facility] Robin Jane Nolberto Address [address] [place] [address]- Care Team Providers Care [employer] Name Role Phone Fuentes Garcia MD Primary Care Physician [facility] Date[facility]): 12/26/20 - 01/25/21 [facility] Robin Bolañosley Adult [address] [place] [address]- Allergies, Adverse Reactions, Alerts Substance Reaction Severity [...] B adult vaccine 06/14/02 Recorded 1Result Comment: [id number] 2Result Comment: [id number] 3Result Comment: [07/08/2017] 22555-770-34 4Admin Note: [facility] 5Admin Note: [facility] [...] 11 Refills, Maintenance, 10/31/20 14:14:00 EDT, Cream, [facility] #[id number], Partial fill upon patient request if the [...] 11/27/20 10:09:00 EDT, Route to Pharmacy Electronically, [facility] #[id number], please schedule appt for further refills, 165, cm, 11/19/20 11:32:00 EDT, Hei... Start Date: 11/27/20 Status: Ordered Claritin 10 mg oral tablet 10 mg, 1, tablet, By Mouth, Daily, for 90 days, # 90 tablet, Refills 3, Tot. Refills 3, Acute 07/28/21 15:22:00 EST, 08/02/20 15:22:00 EST, Route to Pharmacy Electronically, [facility] #[id number], 165, cm, 07/31/20 14:32:00 EST, Height, 127, [...] PMR, history of smoking fax to : [phone], 04... Start Date: 10/26/20 Status: Ordered Disposable [...] Gm, 3 Refills, Maintenance, 06/22/20 14:58:00 EST, [facility] #[id number], 165, cm, 06/07/20 13:52:00 EST, Height, 127, [...] mL, 5 Refills, Maintenance, 10/01/18 10:08:42 EST, [place], 2 sprays Nares, Both 2 times a [...] M47.8 Spinal Stenosis M48.061 Morbid Obesity E66.01, 12/26/19 9:27:00 EST, Compound Start Date: 07/21/19 Status: Ordered loratadine 10 mg oral tablet 10 mg, 1, tablet, By Mouth, Daily, # 90 tablet, Refills 3, Tot. Refills 3, Maintenance, 08/02/20 16:13:00 EST, Route to Pharmacy Electronically, [facility] #[id number], D/C RX ON FILE FOR CLARITAN, 165, [...] tablet, 1 Refills, Maintenance, 07/12/20 13:56:00 EST, [facility] #[id number], Partial fill upon patient request if the prescription is for a schedule II opioid drug., 165, cm, 07/11/20 15:24:00 EST,... Start Date: 07/12/20 Stop Date: 07/05/21 Status: Ordered metoprolol 25 mg oral tablet 25 mg, 1, tablet, By Mouth, 2 times a day, # 60 tablet, Refills 5, Tot. Refills 5, Maintenance, 09/22/20 13:59:00 EST, Route to Pharmacy Electronically, [facility] #[id number], 165, cm, 07/31/2113:32:00 EST, Height, 127, kg, 02/03/20 14:39:00 ED... Start Date: 09/22/20 Status: Ordered Mitigare 0.6 mg oral capsule 1 capsule, By Mouth, Daily, # 30 capsule, 11 Refills, Maintenance, 12/31/20 16:51:00 EDT, [facility] #[id number], 165, cm, 11/19/20 11:32:00 EDT, Height, 127, [...] 0 Refills, Maintenance, 06/18/20 16:57:00 EST, Patch, [facility] #[id number], Partial fill upon patient request, 165, cm, 06/07/20 13:52:00 EST, Height, 127, kg, 02/03/20 14:39:00 EDT, Dry Weight Start Date: 06/18/20 Stop Date: 07/30/20 Status: Ordered NuLYTELY with Flavor Packs oral powder for reconstitution See Instructions, Drink 240mL every 15-20 minutes until first half is gone. Repeat 6 hours prior toprocedure., # 4,000 mL, 0 Refills, Maintenance, 06/28/20 17:09:00 EST, [facility] #[id number],Partial fill upon patient request if the prescript... Start Date: 06/28/20 Status: Ordered oxyCODONE 10 mg oral tablet 1 tablet = 10 mg, By Mouth, Every 8 hours, DX Z79.891 G89.29 M47.816 OK TO FILL LESS THAN PRESCRIBED AMOUNT, # 84 tablet, 0 Refills, Maintenance, 01/25/21 16:57:00 EDT, Tablet, [facility] #[id number], 01/29/21, 165, cm, 01/11/21 14:05:00 EDT, He... Start Date: 01/25/21 Stop Date: 02/22/21 Status: Ordered penicillin V potassium 250 mg oral tablet 1 tablet = 250 mg, By Mouth, 2 times a day, Cellulitis prophylaxis, # 60 tablet, 11 Refills, Maintenance, 10/30/20 12:09:00 EDT, [facility] #[id number], 165, cm, 10/19/20 8:59:00 EDT, Height, 127, kg, 02/03/20 14:39:00 EDT, Dry Weight Start Date: 10/30/20 Status: Ordered predniSONE 5 mg oral tablet 1 tablet = 5 mg, By Mouth, Daily, # 30 tablet, 0 Refills, Maintenance, 01/11/21 14:20:00 EDT, Tablet, [facility] #[id number], Partial fill upon patient request if the [...] 5 Refills, Maintenance, 04/30/20 15:13:00 EDT, Tablet, [facility] #[id number], 165, cm, 04/30/20 14:30:00 EDT, Height, 127, kg, 02/03/20 14:39:00 EDT, Dry Weight Start Date: 04/30/20 Status: Ordered rosuvastatin 10 mg oral tablet 1 tablet = 10 mg, By Mouth, Daily, # 90 tablet, 3 Refills, Maintenance, 05/03/20 16:35:00 EDT, Tablet, [facility] #[id number], d/c rx for capsules, 165, cm, 04/30/20 14:30:00 EDT, Height, 127, kg, 02/03/20 14:39:00 EDT, Dry Weight Start Date: 05/03/20 Status: Ordered Ventolin HFA 108 mcg/inh inhalation aerosol with adapter 2 puffs, Inhalation, Every 4 hours, PRN Wheezing/Shortness of Breath, # 1 each, 5 Refills, Soft Stop, 11/08/20 8:46:00 EDT, [facility] #[id number], 165, cm, 10/19/20 8:59:00 EDT, Height, 127, kg, 02/03/20 14:39:00 EDT, Dry Weight Start Date: 11/08/20 Status: Ordered warfarin 5 mg oral tablet 1 tablet = 5 mg, By Mouth, Daily, dosing subject to change pending inr lab values, # 30 tablet, 11 Refills, Maintenance, 08/31/20 15:36:00 EST, Tablet, [facility] #[id number], 165, cm, 07/31/20 14:32:00 EST, Height, 127, [...]
--- OUTSIDE RECORDS SUMMARY | 2024-01-02 21:22 | XMS_ITS | Continuity of Care Document ---
Author Organization [facility] Buck Nolberto Address [address] [place] [address]- Care Team Providers Care White Sugar Pan Tank Operator Name Role Phone Krishan GRIDER, Eulogio Molina Primary Care Physician [phone] [facility] Date[facility]s): 10/18/21 - 11/17/21 [facility] Robin Bolañosley Adult [address] [place] [address]- Allergies, Adverse Reactions, Alerts Substance Reaction Severity Status Adhesive Bandage Active Dust copd exac/sinus congestion A ctive Immunizations Given and Recorded Vaccine Date Status Refusal Reason SARS-CoV-2 mRNA (xnkjgwt-cznz-ylwye) vax 08/30/21 Recorded influenza virus vaccine, inactivated [...] B adult vaccine 06/14/02 Recorded 1Result Comment: [id number] 2Result Comment: [id number] 3Result Comment: [id number] 4Result Comment: [07/08/2017] 69302-660-08 5Admin Note: [facility] 6Admin Note: [facility] [...] 8.5 Gm, 5 Refills, 05/29/21 17:13:00 EDT, [id number], 17, INHALE 2 PUFFS BY MOUTH EVERY 4 HOURS NEEDED FOR WHEEZING OR SHORTNE... Start Date: 05/29/21 Status: Ordered calcipotriene 0.005% topical cream 1 application, Topically, 2 times a day, # 60 Gm, 11 Refills, Maintenance, 11/15/21 11:54:00 EDT, Cream, [facility], Partial fill upon patient request if the prescription is for a schedule IIopioid drug., 1 application Topically 2 times a day... Start Date: 11/15/21 Status: Ordered chlorthalidone 25 mg oral tablet 1, tablet, By Mouth, Daily, # 90 tablet, Refills 3, Route to Pharmacy Electronically, [facility], 165, cm, 06/25/21 11:35:00 EST, Height, 127, kg, 02/03/20 14:39:00 EDT, Dry Weight Start Date: 07/09/21 Status: Ordered colchicine 0.6 mg oral tablet 0.6 mg, 1, tablet, By Mouth, Daily, # 30 tablet, Refills 11, Tot. Refills 11, Maintenance, :00:00 EDT, Route to Pharmacy Electronically, [facility], Partial fill upon patient request if the prescription is for a schedule II opioid dr... Start Date: 10/30/21 Status: Ordered cyclobenzaprine 10 mg oral tablet See Instructions, PRN, 1 tablet By Mouth 3 times a day as needed, # 20 tablet, Refills 0, Tot. Refills 0, Maintenance, for spasm, 11/08/21 10:23:00 EDT, Instructions Replace Required Details, Route to Pharmacy Electronically, [facility] #176... Start Date: 11/08/21 Status: Ordered Disposable [...] 11 Refills, Maintenance, 06/25/21 12:00:00 EST, Capsule, [facility], Partial fill upon patient request if [...] Gm, 3 Refills, Maintenance, 06/22/20 14:58:00 EST, [facility] #[id number], 165, cm, 06/07/20 13:52:00 EST, Height, 127, [...] Replace Required Details, Route to Pharmacy Electronically, [facility], [place]... Start Date: 09/05/21 Status: Ordered HydrOXYzine PRn , rare use, 0 Refills, Maintenance, 04/30/20 15:04:00 EDT Start Date: 04/30/20 Status: Ordered ipratropium nasal 21 mcg/inh spray 2 sprays, Nares, Both, 2 times a day, # 30 mL, 5 Refills, Maintenance, 10/01/18 10:08:42 EST, [place], 2 sprays Nares, Both 2 times a [...] Replace Required Details, Route to Pharmacy Electronically, [facility], 165, cm, 06/25/21 11:35:00 EST, Height, [...] tablet, 6Refills, Maintenance, 05/21/21 11:19:00 EDT, [facility], [facility], Partial fill upon patient request if the prescription is for a schedule II... Start Date: 05/21/21 Status: Ordered methenamine hippurate 1 gm oral tablet 1 tablet = 1 Gm, By Mouth, 2 times a day, # 60 tablet, 11 Refills, Maintenance, 07/05/21 14:00:00 EST, [facility], Partial fill upon patient request if the prescription is for a schedule II opioid drug., 165, cm, 02/28/21 14:22:00 EDT, Height,... Start Date: 07/05/21 Status: Ordered Mitigare 0.6 mg oral capsule 1 capsule, By Mouth, Daily, # 30 capsule, 11 Refills, Maintenance, 12/31/20 16:51:00 EDT, [facility] #[id number], 165, cm, 11/19/20 11:32:00 EDT, Height, 127, kg, 02/03/20 14:39:00 EDT, Dry Weight Start Date: 12/31/20 Status: Ordered NuLYTELY with Flavor Packs oral powder for reconstitution 240 mL, By Mouth, Every 10 minutes, # 1 each, 0 Refills, Maintenance, 10/25/21 10:39:00 EDT, REC Powder, [facility], Partial fill upon patient request if the prescription is for a schedule IIopioid drug., 240 mL By Mouth Every 10 minutes, 165... Start Date: 10/25/21 Status: Ordered penicillin V potassium 250 mg oral tablet 1 tablet, By Mouth, 2 times a day, CELLULITIS PROPHYLAXIS., # 60 tablet, 6 Refills, [facility], 165, cm, 11/08/21 10:02:00 EDT, Height, 127, kg, 02/03/20 14:39:00 EDT, Dry Weight Start Date: 11/15/21 Status: Ordered propranolol 20 mg oral tablet 20 mg, 1, tablet, By Mouth, 2 times a day, Stop metoprolol, # 60 tablet, Refills 5, Tot. Refills 5,Maintenance, 09/05/21 6:13:00 EST, Route to Pharmacy Electronically, [facility], Partial fill upon patient request if the prescription is for a... Start Date: 09/05/21 Status: Ordered risperiDONE 1 mg oral tablet take 1 tablet by mouth twice a day Start Date: 05/23/19 Status: Ordered rOPINIRole 0.5 mg oral tablet 1 tablet, By Mouth, 3 times a day, # 90 tablet, 5 Refills, 11/08/21 9:01:00 EDT, [facility], 165, cm, 11/04/21 8:42:00 EDT, Height, 127, kg, 02/03/20 14:39:00 EDT, Dry Weight Start Date: 11/08/21 Status: Ordered rosuvastatin 10 mg oral tablet See Instructions, TAKE 1 TABLET BY MOUTH DAILY, # 90 tablet, 1 Refills, Maintenance, 10/18/21 21:30:00 EDT, [facility], 165, cm, 09/04/21 14:01:00 EST, Height, 127, kg, 02/03/20 14:39:00 EDT,Dry Weight Start Date: 10/18/21 Status: Ordered warfarin 2.5 mg oral tablet See Instructions, Dosing Subject To Change per INR Result per MD, # 30 each, 6 Refills, Maintenance, 06/12/21 17:09:00 EST, Tablet, [facility], Dosing Subject To Change per INR Result per MD,165, cm, 05/21/21 10:54:00 EDT, Height, 127, kg, 07... Start Date: 06/12/21 Status: Ordered warfarin 5 mg oral tablet See Instructions, Dosing Subject To Change Per INR Result per MD, # 30 each, 6 Refills, Maintenance, 06/12/21 17:05:00 EST, Tablet, [facility], PLEASE GIVE BOTH 5MG TABLETS AND [...]
--- OUTSIDE RECORDS SUMMARY | 2024-01-02 21:22 | XMS_ITS | Continuity of Care Document ---
Author Organization [facility] Address [address] [place] [address]- Care Team Providers Care Cylinder Block Mechanic Name Role Phone Radha GRIDER, Fuentes Kenny Primary Care Physician [phone] Encounter 12/26/19 - 04/09/20 [facility] [address], [address] [place] [address]- [phone] Attending Physician: Fuentes Garcia MD Admitting Physician: [...] H1N1, inactive(oldterm) 7 05/08/11 Given 1Result Comment: [id number] 2Result Comment: [07/08/2017] 98127-228-01 3Admin Note: [facility] 4Admin Note: [facility] [...] 12/06/19 9:16:00 EDT, Route to Pharmacy Electronically, [facility] #[id number], please schedule appt for further refills, 162, cm, 09/21/19 12:01:00 Laurie SPAIN... Start Date: 12/06/19 Status: Ordered Claritin 10 mg oral tablet 10 mg, 1, tablet, By Mouth, Daily, for 30 days, # 30 tablet, Refills 11, Tot. Refills 11, Acute 05/11/20 17:36:41 EDT, 05/17/19 17:36:41 EDT, Route to Pharmacy Electronically, [id number], [facility] [address] [place] [address] Start Date: 05/17/19 Stop Date: 05/11/20 Status: Ordered colchicine 0.6 mg oral tablet See Instructions, take 1 tablet by mouth once daily if needed for PSEUDOGOUT pain, # 30 tablet, Refills 5, Tot. Refills 5, Soft Stop, 01/05/20 8:41:00 EDT, Instructions Replace Required Details, Route to Pharmacy Electronically, [facility] #... Start Date: 01/05/20 Status: Ordered [...] Gm, 1 Refills, Maintenance, 12/20/19 16:30:00 EDT, [facility] #[id number], 162, cm, 09/21/19 12:01:00 EST, Height, 116.4, [...] mL, 5 Refills, Maintenance, 10/01/18 10:08:42 EST, [place], 2 sprays Nares, Both 2 times a [...] 03/22/20 16:34:00 EDT, Route to Pharmacy Electronically, [facility] #[id number], 165, cm, 02/02/2014:39:00 EDT, Height, 127, kg, [...] 0 Refills, Maintenance, 03/26/20 17:11:00 EDT, Tablet, [facility] #[id number], 03/27/20, 165, cm, 02/03/20 14:39:00 EDT, He... [...] 11 Refills, Soft Stop, 01/19/20 11:46:00 EDT, [facility] #[id number], 165, cm, 01/16/20 6:17:00 EDT, Height, 128.1, kg, 01/16/20 6:17:00 EDT, Dry Weight Start Date: 01/19/20 Status: Ordered warfarin 5 mg oral tablet 1 tablet = 5 mg, By Mouth, Daily, dosing subject to change pending inr lab values, # 30 tablet, 5 Refills, Maintenance, 02/15/20 13:21:00 EDT, Tablet, [facility] #[id number], 165, cm, 02/03/20 14:39:00 EDT, Height, 127, [...] long-term use(Confirmed) Active Gastric banding status(Confirmed) Active [facility] current use of 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
--- OUTSIDE RECORDS SUMMARY | 2024-01-02 21:22 | XMS_ITS | Continuity of Care Document ---
Author Organization [facility] Robin Jane Nolberto Address [address] [place] [address]- Care Team Providers Care Meat Selector Name Role Phone Kyle Ahumada DO Primary Care Physician [facility]): 10[facility]07[facility]23 - 11/06/23 [facility] Robin Bolañosley Adult [address] [place] [address]- Allergies, Adverse Reactions, Alerts Substance Reaction Severity [...] vaccine, inactivated 05/10/07 Jarrett rded SARS-CoV-2 mRNA (bujghmi-ynyr-uyfxy) vax 08/30/21 Recorded SARS-CoV-2 (COVID-19) mRNA BNT-162b2 vac 01/02/21 Recorded SARS-CoV-2 (COVID-19) mRNA BNT-162b2 vac 12/02/20 Recorded Fluvirin (oldterm) 10 03/22/15 Given Fluzone Preservative-Free (oldterm) 11 03/12/12 Gi octavio pneumococcal 23-valent vaccine 10/08/11 Given tetanus/diphtheria/pertussis, acel(Tdap) 09/08/11 Given tetanus/diphtheria/pertussis, acel(Tdap) 12/17/06 Recorded influ virus vac, H1N1, inactive(oldterm) 12 05/08/11 Given hepatitis B adult vaccine 06/14/02 Recorded 1Result Comment: PCV 20 [facility]#[id number] 2Result Comment: Flu [facility]#[id number] 3Result Comment: [id number] 4Result Comment: [id number] 5Result Comment: [id number] 6Result Comment: [id number] 7Result Comment: [07/08/2017] [id number] 8Admin Note: [facility] 9Admin Note: [facility] 9-13 10Admin Note: Given at [facility] 11Admin Note: 03-11-12 GIVEN AT [facility] 12Admin Note: rcvd elsewhere Medications acetaminophen 325 mg oral tablet 2, tablet, By Mouth, Every 6 hours, PRN, # 100 tablet, Refills 5, Maintenance, NEEDED FOR MODERATE PAIN (VIAL), 09/14/23 15:41:00 EST, Route to Pharmacy Electronically, [facility], 160, cm, 07/07/23 15:02:00 EST, Height, 112.4, kg, 06/24/23... Start Date: 09/14/23 Status: Ordered Albuterol (Eqv-ProAir HFA) 90 mcg/inh inhalation aerosol 2 puffs, Inhalation, Every 4 hours, PRN NEEDED FOR WHEEZING OR FOR SHORTNESS OF BREATH (BULK), #8.5 Gm, 5 Refills, Maintenance, 07/25/23 11:45:00 EST, [facility], 17, INHALE 2 PUFFS BY MOUTH [...] 10/07/23 15:53:00 EDT, Route to Pharmacy Electronically, [facility], 160, cm, 07/07/2315:02:00 EST, Height, 112.4, kg, 06/24/23 17:38:00... Start Date: 10/07/23 Status: Ordered cyclobenzaprine 5 mg oral tablet 1 tablet, By Mouth, 3 times a day, PRN NEEDED, SPASM (VIAL., # 90 tablet, 3 Refills, Maintenance, 08/19/23 10:07:00 EST, [facility], 160, cm, 07/07/23 15:02:00 EST, Height, 112.4, kg, 06/24/23 17:38:00 EST, Dry Weight Start Date: 08/19/23 Status: Ordered docusate sodium 100 mg oral capsule 100 mg, 1, capsule, By Mouth, 2 times a day, hold for loose stool, # 180 capsule, Refills 3, Tot. Refills 3, Maintenance, 03/13/23 16:56:00 EDT, Route to Pharmacy Electronically, [facility], Partial fill upon patient request if the prescriptio... Start Date: 03/13/23 Stop Date: 04/12/23 Status: Ordered duloxetine 20 mg oral enteric coated capsule 2 capsule = 40 mg, By Mouth, Daily at bedtime, # 60 capsule, 11 Refills, Maintenance, 06/25/21 12:00:00 EST, Capsule, [facility], Partial fill upon patient request [...] Replace Required Details, Route to Pharmacy Electronically, [facility], 160, cm, 07/07/23 15:02:00 EST, Height,... Start Date: 07/28/23 Status: Ordered furosemide 40 mg oral tablet 40 mg, 1, tablet, By Mouth, Daily, # 90 tablet, Refills 1, Tot. Refills 1, Maintenance, 03/02/23 18:12:00 EDT, Route to Pharmacy Electronically, [facility], Partial fill upon patient request if the prescription is for a schedule II opioid drug... Start Date: 03/02/23 Status: Ordered gabapentin 300 mg oral capsule 300 mg, 1, capsule, By Mouth, 3 times a day, # 90 capsule, Refills 2, Tot. Refills 2, Maintenance, 09/09/23 17:17:00 EST, Route to Pharmacy Electronically, [facility], Partial fill upon patient request if [...] mL, 11 Refills, Maintenance, 08/11/23 7:46:00 EST, [facility], 30, INSTILL 2 SPRAYS IN EACH [...] 07/01/23 14:32:00 EST, Route to Pharmacy Electronically, [facility], 160, cm, 06/26/23 11:21:00 EST, Height, 112.4, kg, 06/24/23 17:38:00 EST, Dry Weight Start Date: 07/01/23 Status: Ordered metFORMIN 500 mg oral tablet 1 tablet = 500 mg, By Mouth, 2 times a day, # 60 tablet, 5 Refills, Maintenance, 07/07/23 15:26:00 EST, Tablet, [facility], Partial fill upon patient request if the prescription is for a schedule II opioid drug., 160, cm, 07/07/23 15:02:00 EST... Start Date: 07/07/23 Stop Date: 01/03/24 Status: Ordered nicotine 21 mg/24 hr transdermal film, extended release 1 patch, Topically, Daily, # 28 patch, 3 Refills, Maintenance, 09/14/23 15:41:00 EST, [facility], 28, APPLY 1 PATCH TOPICALLY [...] tablet, 5 Refills, Maintenance, 08/19/23 10:06:00 EST, [facility], 160, cm, 07/07/23 15:02:00 EST, Height, 112.4, kg, 06/24/23 17:38:00 EST,Dry Weight Start Date: 08/19/23 Status: Ordered rOPINIRole 0.5 mg oral tablet 1 tablet, By Mouth, 3 times a day, ^1R1,1R3,1R4., # 90 tablet, 5 Refills, Maintenance, 10/11/23 20:09:00 EDT, [facility], 160, cm, 07/07/23 15:02:00 EST, Height, 112.4, kg, 06/24/23 17:38:00 EST, Dry Weight Start Date: 10/11/23 Status: Ordered rosuvastatin 10 mg oral tablet 1 tablet, By Mouth, Daily, ^1R1., # 30 tablet, 5 Refills, Maintenance, 07/01/23 14:33:00 EST, [facility], 160, cm, 06/26/23 11:21:00 EST, Height, 112.4, kg, 06/24/23 17:38:00 EST, Dry Weight Start Date: 07/01/23 Status: Ordered Symbicort 160mcg/4.5mcg Inhaler 2, puffs, Inhalation, 2 times a day, # 10.2 Gm, Refills 11, Tot. 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 Active [...] Team Personnel Name: Sandra Wills NP Position: [facility] PCO Associate Professional Member Role: Primary Care Nurse Address: Address: [address] [place] [address] [place] [address]- Name: Marley Alejo RN Position: [facility] RN Member Role: Primary Care Nurse Name: Rashi Dewitt RN Position: [facility] RN Member Role: Primary Care Nurse Name: Alma Delia Fonseca PharmD Position: [facility] Associate Professional Member Role: [employer] Consult[employer] Provider Address: Address: [address] [place] [address] [place] [address]- [place] Name: Priscila Garzon RN Position: [facility] RN Member Role: Primary Care Nurse Name: Kyle Ahumada DO Position: [facility] Physician - Primary Care Member Role: PCP Address: Address: [address] [place] [id number]- [place] Name: Renea Mart RN Position: [facility] RN Member Role: Primary Care Nurse Care Team Related Persons Name: FAUZIA JANSEN Address: home [address] [place] [address] Name: AURELIA SHEHT Address: [address] [place] [address] Name: BRE OSORIO Address: home [address] [place] [address]
--- OUTSIDE RECORDS SUMMARY | 2024-01-02 21:22 | XMS_ITS | Continuity of Care Document ---
Author Organization [facility] Robin Jane Nolberto lt Address [address] [place] [address]- Care Team Providers Care Associate Store Director Name Role Phone Radha GRIDER, Fuentes Kenny Primary Care Physician [phone] [facility] 10[facility]05/20 [facility] Adult [address] [place] [address]- Allergies, Adverse Reactions, Alerts Substance Reaction Severity [...] H1N1, inactive(oldterm) 8 05/08/11 Given 1Result Comment: [id number] 2Result Comment: [id number] 3Result Comment: [07/08/2017] [id number] 4Admin Note: [facility] 5Admin Note: [facility] [...] 5 Refills, Maintenance, 07/03/20 9:16:00 EST, Cream, [facility] #[id number], Partial fill upon patient request if the [...] 06/04/20 12:56:00 EST, Route to Pharmacy Electronically, [facility] #[id number], please schedule appt for further refills, 165, cm, 05/16/20 14:15:00 EDT, Hei... Start Date: 06/04/20 Status: Ordered Claritin 10 mg oral tablet 10 mg, 1, tablet, By Mouth, Daily, for 90 days, # 90 tablet, Refills 3, Tot. Refills 3, Acute 07/28/21 15:22:00 EST, 08/02/20 15:22:00 EST, Route to Pharmacy Electronically, [facility] #[id number], 165, cm, 07/31/20 14:32:00 EST, Height, 127, kg,... Start Date: 08/02/20 Stop Date: 07/28/21 Status: Ordered colchicine 0.6 mg oral tablet See Instructions, take 1 tablet by mouth once daily if needed for PSEUDOGOUT pain, # 30 tablet, Refills 5, Tot. Refills 5, Soft Stop, 01/05/20 8:41:00 EDT, Instructions Replace Required Details, Route to Pharmacy Electronically, [facility] #... Start Date: 01/05/20 Status: Ordered Disposable [...] Gm, 3 Refills, Maintenance, 06/22/20 14:58:00 EST, [facility] #[id number], 165, cm, 06/07/20 13:52:00 EST, Height, 127, [...] mL, 5 Refills, Maintenance, 10/01/18 10:08:42 EST, [place], 2 sprays Nares, Both 2 times a [...] 08/02/20 16:13:00 EST, Route to Pharmacy Electronically, [facility] #[id number], D/C RX ON FILE FOR ABRAM, 165, [...] tablet, 1 Refills, Maintenance, 07/12/20 13:56:00 EST, [facility] #[id number], Partial fill upon patient request if the prescription is for a schedule II opioid drug., 165, cm, 07/11/20 15:24:00 EST,... Start Date: 07/12/20 Stop Date: 07/05/21 Status: Ordered metoprolol 25 mg oral tablet 25 mg, 1, tablet, By Mouth, 2 times a day, # 60 tablet, Refills 5, Tot. Refills 5, Maintenance, 09/22/20 13:59:00 EST, Route to Pharmacy Electronically, [facility] #[id number], 165, cm, 07/31/2113:32:00 EST, Height, 127, kg, [...] 0 Refills, Maintenance, 06/18/20 16:57:00 EST, Patch, [facility] #[id number], Partial fill upon patient request, 165, cm, 06/07/20 13:52:00 EST, Height, 127, kg, 02/03/20 14:39:00 EDT, Dry Weight Start Date: 06/18/20 Stop Date: 07/30/20 Status: Ordered NuLYTELY with Flavor Packs oral powder for reconstitution See Instructions, Drink 240mL every 15-20 minutes until first half is gone. Repeat 6 hours prior toprocedure., # 4,000 mL, 0 Refills, Maintenance, 06/28/20 17:09:00 EST, [facility] #[id number],Partial fill upon patient request if the prescript... Start Date: 06/28/20 Status: Ordered oxyCODONE 10 mg oral tablet 1 tablet = 10 mg, By Mouth, Every 8 hours, DX Z79.891 G89.29 M47.816 OK TO FILL LESS THAN PRESCRIBED AMOUNT, # 84 tablet, 0 Refills, Maintenance, 09/10/20 17:26:00 EST, Tablet, [facility] #[id number], 09/11/20, 165, cm, 07/31/20 14:32:00 EST, He... [...] 5 Refills, Maintenance, 04/30/20 15:13:00 EDT, Tablet, [facility] #[id number], 165, cm, 04/30/20 14:30:00 EDT, Height, 127, kg, 02/03/20 14:39:00 EDT, Dry Weight Start Date: 04/30/20 Status: Ordered rosuvastatin 10 mg oral tablet 1 tablet = 10 mg, By Mouth, Daily, # 90 tablet, 3 Refills, Maintenance, 05/03/20 16:35:00 EDT, Tablet, [facility] #[id number], d/c rx for capsules, 165, cm, 04/30/20 14:30:00 EDT, Height, 127, kg, 02/03/20 14:39:00 EDT, Dry Weight Start Date: 05/03/20 Status: Ordered Ventolin HFA 108 mcg/inh inhalation aerosol with adapter 2 puffs, Inhalation, Every 4 hours, PRN Wheezing/Shortness of Breath, # 1 each, 11 Refills, Soft Stop, 01/19/20 11:46:00 EDT, [facility] #[id number], 165, cm, 01/16/20 6:17:00 EDT, Height, 128.1, kg, 01/16/20 6:17:00 EDT, Dry Weight Start Date: 01/19/20 Status: Ordered warfarin 5 mg oral tablet 1 tablet = 5 mg, By Mouth, Daily, dosing subject to change pending inr lab values, # 30 tablet, 11 Refills, Maintenance, 08/31/20 15:36:00 EST, Tablet, [facility] #[id number], 165, cm, 07/31/20 14:32:00 EST, Height, 127, [...]
--- OUTSIDE RECORDS SUMMARY | 2024-01-02 21:22 | XMS_ITS | Continuity of Care Document ---
Author Organization [facility] Address [address] [place] [address]- Care Team Providers Care Animal Nutrition Consultant Name Role Phone Krishan GRIDER, Eulogio Molina Primary Care Physician [facility] - 01/10/22 [facility] [address] [place] [id number] Allergies, Adverse Reactions, Alerts Substance Reaction Severity Status Adhesive Bandage Active Dust copd exac/sinus congestion A ctive Immunizations Given and Recorded Vaccine Date Status Refusal Reason SARS-CoV-2 mRNA ([id number]) vax 08/30/21 Recorded influenza virus vaccine, inactivated [...] B adult vaccine 06/14/02 Recorded 1Result Comment: [id number] 2Result Comment: [id number] 3Result Comment: [id number] 4Result Comment: [07/08/2017] [id number] 5Admin Note: [facility] 6Admin Note: [facility] [...] 8.5 Gm, 5 Refills, 05/29/21 17:13:00 EDT, [facility] #[id number], 17, INHALE 2 PUFFS BY MOUTH EVERY 4 HOURS NEEDED FOR WHEEZING OR SHORTNE... Start Date: 05/29/21 Status: Ordered calcipotriene 0.005% topical cream 1 application, Topically, 2 times a day, # 60 Gm, 11 Refills, Maintenance, 11/15/21 11:54:00 EDT, Cream, [facility], Partial fill upon patient request if the prescription is for a schedule IIopioid drug., 1 application Topically 2 times a day... Start Date: 11/15/21 Status: Ordered cloNIDine 0.1 mg oral tablet See Instructions, TAKE 1 TABLET BY MOUTH TWICE A DAY NEEDED FOR FOR ANXIETY, # 60 tablet, Refills 0, Instructions Replace Required Details, Route to Pharmacy Electronically, [facility], 165, cm, 01/06/22 14:35:00 EDT, Height, 102.1, kg, ... Start Date: 01/09/22 Status: Ordered colchicine 0.6 mg oral tablet 0.6 mg, 1, tablet, By Mouth, Daily, # 30 tablet, Refills 11, Tot. Refills 11, Maintenance, :00:00 EDT, Route to Pharmacy Electronically, [facility], Partial fill upon patient request if the prescription is for a schedule II opioid dr... Start Date: 10/30/21 Status: Ordered duloxetine 20 mg oral enteric coated capsule 2 capsule = 40 mg, By Mouth, Daily at bedtime, # 60 capsule, 11 Refills, Maintenance, 06/25/21 12:00:00 EST, Capsule, [facility], Partial [...] Replace Required Details, Route to Pharmacy Electronically, [facility], 165, cm, 06/25/21 11:35:00 EST, Height, 127, kg, 02/03/20 14:39:00 EDT, Dry Weight Start Date: 08/05/21 Status: Ordered loratadine 10 mg oral tablet See Instructions, TAKE 1 TABLET BY MOUTH ONCE A DAY, # 90 tablet, Refills 1, Tot. Refills 1, Maintenance, 01/10/22 7:16:00 EDT, Instructions Replace Required Details, Route to Pharmacy Electronically, [facility], 165, cm, 01/06/22 14:35:00 EDT... Start Date: 01/10/22 Status: Ordered metoprolol 100 mg oral tablet, extended release 100 mg, 1, tablet, By Mouth, Daily, # 90 tablet, Refills 1, Tot. Refills 1, Maintenance, 12/11/21 13:41:00 EDT, Route to Pharmacy Electronically, [facility], Partial fill upon patient requestif the prescription is for a schedule II opioid keanu... Start Date: 12/11/21 Status: Ordered nicotine 4 mg oral transmucosal gum 1 each = 4 mg, Chew, Every 2 hours, PRN as needed for smoking cessation, # 160 each, 2 Refills, Acute 03/05/22 16:36:00 EDT, 12/03/21 16:35:00 EDT, Gum, [facility] #[id number], Partial fill uponpatient request if the prescription is for a schedu... Start Date: 12/03/21 Stop Date: 03/05/22 Status: Ordered NuLYTELY with Flavor Packs oral powder for reconstitution 240 mL, By Mouth, Every 10 minutes, # 1 each, 0 Refills, Maintenance, 10/25/21 10:39:00 EDT, [facility], Partial fill upon patient request if the prescription is for a schedule IIopioid drug., 240 mL By Mouth Every 10 minutes, 165... Start Date: 10/25/21 Status: Ordered penicillin V potassium 250 mg oral tablet 1 tablet, By Mouth, 2 times a day, CELLULITIS PROPHYLAXIS., # 60 tablet, 6 Refills, [facility], 165, cm, 11/08/21 10:02:00 EDT, Height, 127, kg, 02/03/20 14:39:00 EDT, Dry Weight Start Date: 11/15/21 Status: Ordered rOPINIRole 0.5 mg oral tablet 1 tablet, By Mouth, 3 times a day, # 90 tablet, 5 Refills, 11/08/21 9:01:00 EDT, [facility], 165, cm, 11/04/21 8:42:00 EDT, Height, 127, kg, 02/03/20 14:39:00 EDT, Dry Weight Start Date: 11/08/21 Status: Ordered rosuvastatin 10 mg oral tablet See Instructions, TAKE 1 TABLET BY MOUTH DAILY, # 90 tablet, 1 Refills, Maintenance, 10/18/21 21:30:00 EDT, [facility], 165, cm, 09/04/21 14:01:00 EST, Height, [...] 6 Refills, Maintenance, 12/13/21 13:47:00 EDT, Tablet, [facility], Dosing Subject To Change per INR Result per MD,165, cm, 12/06/21 14:01:00 EDT, Height, 102.1, kg,... 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
--- OUTSIDE RECORDS SUMMARY | 2024-01-02 21:22 | XMS_ITS | Continuity of Care Document ---
Author Organization [facility] Robin Jane Nolberto lt Address [address] [place] [address]- Care Team Providers Care Buffing Wheel Former Machine Name Role Phone Radha GRIDER, Fuentes Kenny Primary Care Physician [facility] 04[facility]20 - 05/13/20 [facility] Adult [address] [place] [address]- [facility] Allergies, Adverse Reactions, Alerts Substance [...] H1N1, inactive(oldterm) 8 05/08/11 Given 1Result Comment: [id number] 2Result Comment: [id number] 3Result Comment: [07/08/2017] [id number] 4Admin Note: [facility] 5Admin Note: [facility] [...] 12/06/19 9:16:00 EDT, Route to Pharmacy Electronically, [facility] #[id number], please schedule appt for further refills, 162, cm, 09/21/19 12:01:00 EST, [place]... Start Date: 12/06/19 Status: Ordered colchicine 0.6 mg oral tablet See Instructions, take 1 tablet by mouth once daily if needed for PSEUDOGOUT pain, # 30 tablet, Refills 5, Tot. Refills 5, Soft Stop, 01/05/20 8:41:00 EDT, Instructions Replace Required Details, Route to Pharmacy Electronically, [facility] #... Start Date: 01/05/20 Status: Ordered [...] Gm, 1 Refills, Maintenance, 12/20/19 16:30:00 EDT, [facility] #[id number], 162, cm, 09/21/19 12:01:00 EST, Height, 116.4, [...] mL, 5 Refills, Maintenance, 10/01/18 10:08:42 EST, [place], 2 sprays Nares, Both 2 times a [...] 03/22/20 16:34:00 EDT, Route to Pharmacy Electronically, [facility] #[id number], 165, cm, 02/02/2014:39:00 EDT, Height, 127, kg, [...] 0 Refills, Maintenance, 04/23/20 12:56:00 EDT, Tablet, [facility] #[id number], 04/24/20, 165, cm, 02/03/20 14:39:00 EDT, He... [...] 5 Refills, Maintenance, 04/30/20 15:13:00 EDT, Tablet, [facility] #[id number], 165, cm, 04/30/20 14:30:00 EDT, Height, 127, kg, 02/03/20 14:39:00 EDT, Dry Weight Start Date: 04/30/20 Status: Ordered rosuvastatin 10 mg oral tablet 1 tablet = 10 mg, By Mouth, Daily, # 90 tablet, 3 Refills, Maintenance, 05/03/20 16:35:00 EDT, Tablet, [facility] #[id number], d/c rx for capsules, 165, cm, 04/30/20 14:30:00 EDT, Height, 127, kg, 02/03/20 14:39:00 EDT, Dry Weight Start Date: 05/03/20 Status: Ordered Ventolin HFA 108 mcg/inh inhalation aerosol with adapter 2 puffs, Inhalation, Every 4 hours, PRN Wheezing/Shortness of Breath, # 1 each, 11 Refills, Soft Stop, 01/19/20 11:46:00 EDT, [facility] #[id number], 165, cm, 01/16/20 6:17:00 EDT, Height, 128.1, kg, 01/16/20 6:17:00 EDT, Dry Weight Start Date: 01/19/20 Status: Ordered warfarin 5 mg oral tablet 1 tablet = 5 mg, By Mouth, Daily, dosing subject to change pending inr lab values, # 30 tablet, 5 Refills, Maintenance, 02/15/20 13:21:00 EDT, Tablet, [facility] #[id number], 165, cm, 02/03/20 14:39:00 EDT, Height, 127, [...] long-term use(Confirmed) Active 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
--- OUTSIDE RECORDS SUMMARY | 2024-01-02 21:23 | XMS_ITS | Continuity of Care Document ---
Author Organization [facility] Robin Jane Nolberto Address [address] [place] [address]- Care Team Providers Care Tumbler Dyeing Machine Operator Name Role Phone Fuentes Garcia MD Primary Care Physician [facility] - 04/21/20 [facility] Robin Bolañosley Adult [address] [place] [address]- [facility] Allergies, Adverse Reactions, Alerts Substance Reaction Severity [...] H1N1, inactive(oldterm) 7 05/08/11 Given 1Result Comment: [id number] 2Result Comment: [07/08/2017] [id number] 3Admin Note: [facility] 4Admin Note: [facility] [...] 12/06/19 9:16:00 EDT, Route to Pharmacy Electronically, [facility] #[id number], please schedule appt for further refills, 162, cm, 09/21/19 12:01:00 Laurie SPAIN... Start Date: 12/06/19 Status: Ordered Claritin 10 mg oral tablet 10 mg, 1, tablet, By Mouth, Daily, for 30 days, # 30 tablet, Refills 11, Tot. Refills 11, Acute 05/11/20 17:36:41 EDT, 05/17/19 17:36:41 EDT, Route to Pharmacy Electronically, [id number] [address] Start Date: 05/17/19 Stop Date: 05/11/20 Status: Ordered colchicine 0.6 mg oral tablet See Instructions, take 1 tablet by mouth once daily if needed for PSEUDOGOUT pain, # 30 tablet, Refills 5, Tot. Refills 5, Soft Stop, 01/05/20 8:41:00 EDT, Instructions Replace Required Details, Route to Pharmacy Electronically, [facility] #... Start Date: 01/05/20 Status: Ordered Disposable [...] 04/27/20 15:15:00 EDT, 04/20/20 15:15:00 EDT, Capsule, [facility] #[id number], 165, cm, 02/03/20 14:39:00 EDT, Height, 127, [...] Gm, 1 Refills, Maintenance, 12/20/19 16:30:00 EDT, [facility] #21505, 162, cm, 09/21/19 12:01:00 EST, Height, 116.4, [...] mL, 5 Refills, Maintenance, 10/01/18 10:08:42 EST, [place], 2 sprays Nares, Both 2 times a [...] 04/27/20 16:20:00 EDT, 04/17/20 16:20:00 EDT, Capsule, [facility] #[id number], 165, cm, 02/03/20 14:39:00EDT, Height, 127, kg, 02/03/20 14:39:00 EDT, Dry We... Start Date: 04/17/20 Stop Date: 04/27/20 Status: Ordered metoprolol 25 mg oral tablet 25 mg, 1, tablet, By Mouth, 2 times a day, # 60 tablet, Refills 5, Tot. Refills 5, Maintenance, 03/22/20 16:34:00 EDT, Route to Pharmacy Electronically, [facility] #[id number], 165, cm, 02/02/2014:39:00 EDT, Height, 127, kg, [...] 0 Refills, Maintenance, 03/26/20 17:11:00 EDT, Tablet, [facility] #[id number], 03/27/20, 165, cm, 02/03/20 14:39:00 EDT, He... 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
--- OUTSIDE RECORDS SUMMARY | 2024-01-02 21:23 | XMS_ITS | Continuity of Care Document ---
Author Organization [facility] Robin Jane Nolberto lt Address [address] [place] [address]- Care Team Providers Care Police Cadet Name Role Phone Radha GRIDER, Fuentes Kenny Primary Care Physician [phone] [facility] 07[facility]26[facility]20 - 08/25/20 [facility] Adult [address] [place] [address]- Allergies, Adverse Reactions, Alerts Substance Reaction Severity [...] H1N1, inactive(oldterm) 8 05/08/11 Given 1Result Comment: [id number] 2Result Comment: [id number] 3Result Comment: [07/08/2017] [id number] 4Admin Note: [facility] 5Admin Note: [facility] [...] 5 Refills, Maintenance, 07/03/20 9:16:00 EST, Cream, [facility] #[id number], Partial fill upon patient request if the [...] 06/04/20 12:56:00 EST, Route to Pharmacy Electronically, [facility] #[id number], please schedule appt for further refills, 165, cm, 05/16/20 14:15:00 EDT, Hei... Start Date: 06/04/20 Status: Ordered Claritin 10 mg oral tablet 10 mg, 1, tablet, By Mouth, Daily, for 90 days, # 90 tablet, Refills 3, Tot. Refills 3, Acute 07/28/21 15:22:00 EST, 08/02/20 15:22:00 EST, Route to Pharmacy Electronically, [facility] #[id number], 165, cm, 07/31/20 14:32:00 EST, Height, 127, kg,... Start Date: 08/02/20 Stop Date: 07/28/21 Status: Ordered colchicine 0.6 mg oral tablet See Instructions, take 1 tablet by mouth once daily if needed for PSEUDOGOUT pain, # 30 tablet, Refills 5, Tot. Refills 5, Soft Stop, 01/05/20 8:41:00 EDT, Instructions Replace Required Details, Route to Pharmacy Electronically, [email or web address] #... Start Date: 01/05/20 Status: Ordered Disposable [...] Gm, 3 Refills, Maintenance, 06/22/20 14:58:00 EST, [facility] #06323, 165, cm, 06/07/20 13:52:00 EST, Height, 127, [...] mL, 5 Refills, Maintenance, 10/01/18 10:08:42 EST, [place], 2 sprays Nares, Both 2 times a [...] 08/02/20 16:13:00 EST, Route to Pharmacy Electronically, [facility] #[id number], D/C RX ON FILE FOR ABRAM, 165, [...] 09/29/20 14:57:00 EST, 07/31/20 14:57:00 EST, Capsule, [facility] #24024, Partial fill upon patient request if the prescription is for a schedule II opi... Start Date: 07/31/20 Stop Date: 09/29/20 Status: Ordered methenamine hippurate 1 gm oral tablet 1 tablet = 1 Gm, By Mouth, 2 times a day, # 60 tablet, 1 Refills, Maintenance, 07/12/20 13:56:00 EST, [facility] #[id number], Partial fill upon patient request if the prescription is for a schedule II opioid drug., 165, cm, 07/11/20 15:24:00 EST,... Start Date: 07/12/20 Stop Date: 07/05/21 Status: Ordered metoprolol 25 mg oral tablet 25 mg, 1, tablet, By Mouth, 2 times a day, # 60 tablet, Refills 5, Tot. Refills 5, Maintenance, 03/22/20 16:34:00 EDT, Route to Pharmacy Electronically, [facility] #28315, 165, cm, 02/02/2014:39:00 EDT, Height, 127, kg, [...] 0 Refills, Maintenance, 06/18/20 16:57:00 EST, Patch, [facility] #84189, Partial fill upon patient request, 165, cm, 06/07/20 13:52:00 EST, Height, 127, kg, 02/03/20 14:39:00 EDT, Dry Weight Start Date: 06/18/20 Stop Date: 07/30/20 Status: Ordered NuLYTELY with Flavor Packs oral powder for reconstitution See Instructions, Drink 240mL every 15-20 minutes until first half is gone. Repeat 6 hours prior toprocedure., # 4,000 mL, 0 Refills, Maintenance, 06/28/20 17:09:00 EST, [facility] #19148,Partial fill upon patient request if the prescript... Start Date: 06/28/20 Status: Ordered oxyCODONE 10 mg oral tablet 1 tablet = 10 mg, By Mouth, Every 8 hours, DX Z79.891 G89.29 M47.816 OK TO FILL LESS THAN PRESCRIBED AMOUNT, # 84 tablet, 0 Refills, Maintenance, 08/14/20 14:32:00 EST, Tablet, [facility] #56193, 08/14/20, 165, cm, 07/31/20 14:32:00 EST, He... [...] 5 Refills, Maintenance, 04/30/20 15:13:00 EDT, Tablet, [facility] #44672, 165, cm, 04/30/20 14:30:00 EDT, Height, 127, kg, 02/03/20 14:39:00 EDT, Dry Weight Start Date: 04/30/20 Status: Ordered rosuvastatin 10 mg oral tablet 1 tablet = 10 mg, By Mouth, Daily, # 90 tablet, 3 Refills, Maintenance, 05/03/20 16:35:00 EDT, Tablet, [facility] #77789, d/c rx for capsules, 165, cm, 04/30/20 14:30:00 EDT, Height, 127, kg, 02/03/20 14:39:00 EDT, Dry Weight Start Date: 05/03/20 Status: Ordered Ventolin HFA 108 mcg/inh inhalation aerosol with adapter 2 puffs, Inhalation, Every 4 hours, PRN Wheezing/Shortness of Breath, # 1 each, 11 Refills, Soft Stop, 01/19/20 11:46:00 EDT, [facility] #[id number], 165, cm, 01/16/20 6:17:00 EDT, Height, 128.1, kg, 01/16/20 6:17:00 EDT, Dry Weight Start Date: 01/19/20 Status: Ordered warfarin 5 mg oral tablet 1 tablet = 5 mg, By Mouth, Daily, dosing subject to change pending inr lab values, # 30 tablet, 5 Refills, Maintenance, 02/15/20 13:21:00 EDT, Tablet, [facility] #68778, 165, cm, 02/03/20 14:39:00 EDT, Height, 127, [...] use(Confirmed) Active 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
--- OUTSIDE RECORDS SUMMARY | 2024-01-02 21:23 | XMS_ITS | Continuity of Care Document ---
Author Organization [facility] Robin Jane Nolberto lt Address [address] [place] [address]- Care Team Providers Care Critical Care Rn Name Role Phone Radha GRIDER, Fuentes Kenny Primary Care Physician [facility] Date[facility]): 08[facility]20 - 09/21/20 [facility] Adult [address] [place] [address]- Allergies, Adverse Reactions, Alerts Substance Reaction Severity [...] H1N1, inactive(oldterm) 8 05/08/11 Given 1Result Comment: [id number] 2Result Comment: [id number] 3Result Comment: [07/08/2017] [id number] 4Admin Note: [facility] 5Admin Note: [facility] [...] 5 Refills, Maintenance, 07/03/20 9:16:00 EST, Cream, [facility] #[id number], Partial fill upon patient request if the [...] 06/04/20 12:56:00 EST, Route to Pharmacy Electronically, [facility] #[id number], please schedule appt for further refills, 165, cm, 05/16/20 14:15:00 EDT, Hei... Start Date: 06/04/20 Status: Ordered Claritin 10 mg oral tablet 10 mg, 1, tablet, By Mouth, Daily, for 90 days, # 90 tablet, Refills 3, Tot. Refills 3, Acute 07/28/21 15:22:00 EST, 08/02/20 15:22:00 EST, Route to Pharmacy Electronically, [facility] #[id number], 165, cm, 07/31/20 14:32:00 EST, Height, 127, kg,... Start Date: 08/02/20 Stop Date: 07/28/21 Status: Ordered colchicine 0.6 mg oral tablet See Instructions, take 1 tablet by mouth once daily if needed for PSEUDOGOUT pain, # 30 tablet, Refills 5, Tot. Refills 5, Soft Stop, 01/05/20 8:41:00 EDT, Instructions Replace Required Details, Route to Pharmacy Electronically, [facility] #... Start Date: 01/05/20 Status: Ordered Disposable [...] Gm, 3 Refills, Maintenance, 06/22/20 14:58:00 EST, [facility] #[id number], 165, cm, 06/07/20 13:52:00 EST, Height, 127, [...] mL, 5 Refills, Maintenance, 10/01/18 10:08:42 EST, [place], 2 sprays Nares, Both 2 times a [...] 08/02/20 16:13:00 EST, Route to Pharmacy Electronically, [facility] #[id number], D/C RX ON FILE FOR ABRAM, 165, [...] 09/29/20 14:57:00 EST, 07/31/20 14:57:00 EST, Capsule, [facility] #[id number], Partial fill upon patient request if the prescription is for a schedule II opi... Start Date: 07/31/20 Stop Date: 09/29/20 Status: Ordered methenamine hippurate 1 gm oral tablet 1 tablet = 1 Gm, By Mouth, 2 times a day, # 60 tablet, 1 Refills, Maintenance, 07/12/20 13:56:00 EST, [facility] #[id number], Partial fill upon patient request if the prescription is for a schedule II opioid drug., 165, cm, 07/11/20 15:24:00 EST,... Start Date: 07/12/20 Stop Date: 07/05/21 Status: Ordered metoprolol 25 mg oral tablet 25 mg, 1, tablet, By Mouth, 2 times a day, # 60 tablet, Refills 5, Tot. Refills 5, Maintenance, 03/22/20 16:34:00 EDT, Route to Pharmacy Electronically, [facility] #[id number], 165, cm, 02/02/2014:39:00 EDT, Height, 127, kg, [...] 0 Refills, Maintenance, 06/18/20 16:57:00 EST, Patch, [facility] #[id number], Partial fill upon patient request, 165, cm, 06/07/20 13:52:00 EST, Height, 127, kg, 02/03/20 14:39:00 EDT, Dry Weight Start Date: 06/18/20 Stop Date: 07/30/20 Status: Ordered NuLYTELY with Flavor Packs oral powder for reconstitution See Instructions, Drink 240mL every 15-20 minutes until first half is gone. Repeat 6 hours prior toprocedure., # 4,000 mL, 0 Refills, Maintenance, 06/28/20 17:09:00 EST, [facility] #[id number],Partial fill upon patient request if the prescript... Start Date: 06/28/20 Status: Ordered oxyCODONE 10 mg oral tablet 1 tablet = 10 mg, By Mouth, Every 8 hours, DX Z79.891 G89.29 M47.816 OK TO FILL LESS THAN PRESCRIBED AMOUNT, # 84 tablet, 0 Refills, Maintenance, 09/10/20 17:26:00 EST, Tablet, [facility] #[id number], 09/11/20, 165, cm, 07/31/20 14:32:00 EST, He... [...] 5 Refills, Maintenance, 04/30/20 15:13:00 EDT, Tablet, [facility] #[id number], 165, cm, 04/30/20 14:30:00 EDT, Height, 127, kg, 02/03/20 14:39:00 EDT, Dry Weight Start Date: 04/30/20 Status: Ordered rosuvastatin 10 mg oral tablet 1 tablet = 10 mg, By Mouth, Daily, # 90 tablet, 3 Refills, Maintenance, 05/03/20 16:35:00 EDT, Tablet, [facility] #[id number], d/c rx for capsules, 165, cm, 04/30/20 14:30:00 EDT, Height, 127, kg, 02/03/20 14:39:00 EDT, Dry Weight Start Date: 05/03/20 Status: Ordered Ventolin HFA 108 mcg/inh inhalation aerosol with adapter 2 puffs, Inhalation, Every 4 hours, PRN Wheezing/Shortness of Breath, # 1 each, 11 Refills, Soft Stop, 01/19/20 11:46:00 EDT, [facility] #[id number], 165, cm, 01/16/20 6:17:00 EDT, Height, 128.1, kg, 01/16/20 6:17:00 EDT, Dry Weight Start Date: 01/19/20 Status: Ordered warfarin 5 mg oral tablet 1 tablet = 5 mg, By Mouth, Daily, dosing subject to change pending inr lab values, # 30 tablet, 11 Refills, Maintenance, 08/31/20 15:36:00 EST, Tablet, [facility] #[id number], 165, cm, 07/31/20 14:32:00 EST, Height, 127, [...]
--- OUTSIDE RECORDS SUMMARY | 2024-01-02 21:23 | XMS_ITS | Continuity of Care Document ---
Author Organization [facility] Nolberto lt Address [address] [place] [address]- Care Team Providers Care Seasoning Mixer Name Role Phone Fuentes Garcia MD Primary Care Physician [facility] Date[facility]s): 05/29/21 - 06/28/21 [facility] Adult [address] [place] [address]- Allergies, Adverse Reactions, Alerts Substance Reaction Severity [...] B adult vaccine 06/14/02 Recorded 1Result Comment: [id number] 2Result Comment: [id number] 3Result Comment: [id number] 4Result Comment: [07/08/2017] [id number] 5Admin Note: [facility] 6Admin Note: [facility] [...] 8.5 Gm, 5 Refills, 05/29/21 17:13:00 EDT, [facility] #[id number], 17, INHALE 2 PUFFS BY MOUTH EVERY [...] 11 Refills, Maintenance, 10/31/20 14:14:00 EDT, Cream, [facility] #[id number], Partial fill upon patient request if the [...] PMR, history of smoking fax to : [phone], 04... Start Date: 10/26/20 Status: Ordered Disposable [...] 11 Refills, Maintenance, 06/25/21 12:00:00 EST, Capsule, [facility], Partial fill upon patient [...] Gm, 3 Refills, Maintenance, 06/22/20 14:58:00 EST, Currently STORE #[id number], 165, cm, 06/07/20 13:52:00 EST, Height, 127, [...] Refills, Maintenance, 05/24/21 16:13:00 EDT, REC Powder, [facility] #[id number], Partial fill upon patient request if the [...] mL, 5 Refills, Maintenance, 10/01/18 10:08:42 EST, [place], 2 sprays Nares, Both 2 times a [...] 08/02/20 16:13:00 EST, Route to Pharmacy Electronically, [facility] #[id number], D/C RX ON FILE FOR ABRAM, 165, [...] tablet, 6Refills, Maintenance, 05/21/21 11:19:00 EDT, Tablet, [facility], Partial fill upon patient request if the prescription is for a schedule II... Start Date: 05/21/21 Status: Ordered methenamine hippurate 1 gm oral tablet 1 tablet = 1 Gm, By Mouth, 2 times a day, # 60 tablet, 11 Refills, Maintenance, 07/05/21 14:00:00 EST, [facility], Partial fill upon patient request if the prescription is for a schedule II opioid drug., 165, cm, 02/28/21 14:22:00 EDT, Height,... Start Date: 07/05/21 Status: Ordered Mitigare 0.6 mg oral capsule 1 capsule, By Mouth, Daily, # 30 capsule, 11 Refills, Maintenance, 12/31/20 16:51:00 EDT, [facility] #[id number], 165, cm, 11/19/20 11:32:00 EDT, Height, 127, [...] 0 Refills, Maintenance, 04/11/21 9:00:00 EDT, Patch, [facility], Partial fill upon patient request, 165, cm, 02/28/21 14:22:00 EDT, Height, 127, kg, 02/03/20 14:39:00 EDT, Dry Weight Start Date: 04/11/21 Stop Date: 05/23/21 Status: Ordered NuLYTELY with Flavor Packs oral powder for reconstitution See Instructions, Drink 240mL every 15-20 minutes until first half is gone. Repeat 6 hours prior toprocedure., # 4,000 mL, 0 Refills, Maintenance, 06/28/20 17:09:00 EST, Currently STORE #[id number],Partial fill upon patient request if the prescript... Start Date: 06/28/20 Status: Ordered oxyCODONE 10 mg oral tablet 1 tablet = 10 mg, By Mouth, Every 8 hours, DX Z79.891 G89.29 M47.816 OK TO FILL LESS THAN PRESCRIBED AMOUNT, # 84 tablet, 0 Refills, Maintenance, 06/13/21 17:00:00 EST, Tablet, Currently STORE #[id number], 06/18/21, 165, cm, 05/21/21 10:54:00 EDT, He... Start Date: 06/13/21 Stop Date: 07/11/21 Status: Ordered oxyCODONE 5 mg oral tablet 10 mg, 2, tablet, By Mouth, Every 8 hours, DX Z79.891 G89.29 M47.816 OK TO FILL LESS THAN PRESCRIBED AMOUNT, # 168 tablet, Refills 0, Tot. Refills 0, Maintenance, 03/25/21 16:45:00 EDT, Route to Pharmacy Electronically, [facility] #[id number], D... Start Date: 03/25/21 Stop Date: 04/22/21 Status: Ordered penicillin V potassium 250 mg oral tablet 1 tablet = 250 mg, By Mouth, 2 times a day, Cellulitis prophylaxis, # 60 tablet, 11 Refills, Maintenance, 10/30/20 12:09:00 EDT, Currently STORE #[id number], 165, cm, 10/19/20 8:59:00 EDT, Height, 127, kg, 02/03/20 14:39:00 EDT, Dry Weight Start Date: 10/30/20 Status: Ordered predniSONE 5 mg oral tablet 1 tablet = 5 mg, By Mouth, Daily, # 30 tablet, 0 Refills, Maintenance, 01/11/21 14:20:00 EDT, Tablet, [facility] #[id number], Partial fill upon patient request if the prescription is for a schedule II opioid drug., 165, cm, 01/11/21 14:05:00 EDT,... Start Date: 01/11/21 Status: Ordered propranolol 20 mg oral tablet 20 mg, 1, tablet, By Mouth, 2 times a day, # 60 tablet, Refills 5, Tot. Refills 5, Maintenance, 06/25/21 11:57:00 EST, Route to Pharmacy Electronically, [facility], Partial fill upon patient [...] day, # 90 tablet, 0 Refills, [facility], 165, cm, 05/21/21 10:54:00 EDT, Height, 127, kg, 02/03/20 14:39:00 EDT, Dry Weight Start Date: 06/11/21 Status: Ordered rosuvastatin 10 mg oral tablet 1 tablet = 10 mg, By Mouth, Daily, # 90 tablet, 1 Refills, Maintenance, 05/20/21 15:53:00 EDT, Tablet, [facility], d/c rx for capsules, 165, cm, 02/28/21 14:22:00 EDT, Height, 127, kg, 02/03/20 14:39:00 EDT, Dry Weight Start Date: 05/20/21 Status: Ordered Trulicity Pen 0.75 mg/0.5 mL subcutaneous solution 0.5 mL = 0.75 mg, Subcutaneous Injection, Every week, take on same day every week, rotate injectionsites E11.9, # 2 mL, 1 Refills, Maintenance, 05/21/21 11:18:00 EDT, Solution, Currently STORE #[id number], Partial fill upon patient request if the... Start Date: 05/21/21 Status: Ordered warfarin 2.5 mg oral tablet See Instructions, Dosing Subject To Change per INR Result per MD, # 30 each, 6 Refills, Maintenance, 06/12/21 17:09:00 EST, Tablet, [facility], Dosing Subject To Change per INR Result per MD,165, cm, 05/21/21 10:54:00 EDT, Height, 127, kg, 07... 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
--- OUTSIDE RECORDS SUMMARY | 2024-01-02 21:23 | XMS_ITS | Continuity of Care Document ---
Author Organization [facility] Nolberto lt Address [address] [place] [address]- Care Team Providers Care Tank Car Loader Name Role Phone Krishan GRIDER, Eulogio Molina Primary Care Physician [facility]): 09[facility]21 - 10/11/21 [facility] Robin Bolañosley Adult [address] [place] [address]- Allergies, Adverse Reactions, Alerts Substance Reaction Severity Status Adhesive Bandage Active Dust copd exac/sinus congestion A ctive Immunizations Given and Recorded Vaccine Date Status Refusal Reason SARS-CoV-2 mRNA ([id number]) vax 08/30/21 Recorded influenza virus vaccine, inactivated [...] B adult vaccine 06/14/02 Recorded 1Result Comment: [id number] 2Result Comment: [id number] 3Result Comment: [id number] 4Result Comment: [07/08/2017] [id number] 5Admin Note: [facility] 6Admin Note: [facility] [...] 8.5 Gm, 5 Refills, 05/29/21 17:13:00 EDT, [facility] #[id number], 17, INHALE 2 PUFFS BY MOUTH EVERY 4 HOURS NEEDED FOR WHEEZING OR SHORTNE... Start Date: 05/29/21 Status: Ordered calcipotriene 0.005% topical cream 1 application, Topically, 2 times a day, # 60 Gm, 11 Refills, Maintenance, 10/31/20 14:14:00 EDT, Cream, [facility] #[id number], Partial fill upon patient request if the prescription is for a schedule II opioid drug., 1 application Topically 2 ti... Start Date: 10/31/20 Status: Ordered chlorthalidone 25 mg oral tablet 1, tablet, By Mouth, Daily, # 90 tablet, Refills 3, Route to Pharmacy Electronically, [facility], 165, cm, 06/25/21 11:35:00 EST, Height, [...] 11 Refills, Maintenance, 06/25/21 12:00:00 EST, Capsule, [facility], Partial fill upon patient request if [...] Gm, 3 Refills, Maintenance, 06/22/20 14:58:00 EST, [facility] #[id number], 165, cm, 06/07/20 13:52:00 EST, Height, 127, [...] Electronically, [facility] [place]... Start Date: 09/05/21 Status: Ordered HydrOXYzine PRn , rare use, 0 Refills, Maintenance, 04/30/20 15:04:00 EDT Start Date: 04/30/20 Status: Ordered ipratropium nasal 21 mcg/inh spray 2 sprays, Nares, Both, 2 times a day, # 30 mL, 5 Refills, Maintenance, 10/01/18 10:08:42 EST, [place], 2 sprays Nares, Both 2 times a [...] tablet, 6Refills, Maintenance, 05/21/21 11:19:00 EDT, Tablet, [facility], Partial fill upon patient request if the prescription is for a schedule II... Start Date: 05/21/21 Status: Ordered methenamine hippurate 1 gm oral tablet 1 tablet = 1 Gm, By Mouth, 2 times a day, # 60 tablet, 11 Refills, Maintenance, 07/05/21 14:00:00 EST, [facility], Partial fill upon patient request if the prescription is for a schedule II opioid drug., 165, cm, 02/28/21 14:22:00 EDT, Height,... Start Date: 07/05/21 Status: Ordered Mitigare 0.6 mg oral capsule 1 capsule, By Mouth, Daily, # 30 capsule, 11 Refills, Maintenance, 12/31/20 16:51:00 EDT, [facility] #[id number], 165, cm, 11/19/20 11:32:00 EDT, Height, 127, kg, 02/03/20 14:39:00 EDT, Dry Weight Start Date: 12/31/20 Status: Ordered penicillin V potassium 250 mg oral tablet 1 tablet = 250 mg, By Mouth, 2 times a day, Cellulitis prophylaxis, # 60 tablet, 11 Refills, Maintenance, 10/30/20 12:09:00 EDT, [facility] #[id number], 165, cm, 10/19/20 8:59:00 EDT, Height, 127, kg, 02/03/20 14:39:00 EDT, Dry Weight Start Date: 10/30/20 Status: Ordered propranolol 20 mg oral tablet 20 mg, 1, tablet, By Mouth, 2 times a day, Stop metoprolol, # 60 tablet, Refills 5, Tot. Refills 5,Maintenance, 09/05/21 6:13:00 EST, [facility] Pharm[facility], [facility] [...] 1 Refills, Maintenance, 05/20/21 15:53:00 EDT, Tablet, [facility], d/c rx for capsules, 165, [...] 6 Refills, Maintenance, 06/12/21 17:09:00 EST, Tablet, [facility], Dosing Subject To Change per INR Result per MD,165, cm, 05/21/21 10:54:00 EDT, Height, 127, kg, 07... Start Date: 06/12/21 Status: Ordered warfarin 5 mg oral tablet See Instructions, Dosing Subject To Change Per INR Result per MD, # 30 each, 6 Refills, Maintenance, 06/12/21 17:05:00 EST, Tablet, [facility], PLEASE GIVE BOTH 5MG TABLETS AND [...]
--- OUTSIDE RECORDS SUMMARY | 2024-01-02 21:23 | XMS_ITS | Continuity of Care Document ---
Author Organization [facility] ter Address [address] [place] [address]- Care Team Providers Care Geography Faculty Member Name Role Phone Radha GRIDER, Fuentes Kenny Primary Care Physician [facility] - 11/30/[address] [address] Attending Physician: Ashu Zavaleta DO Admitting Physician: [...] H1N1, inactive(oldterm) 8 05/08/11 Given 1Result Comment: [id number] 2Result Comment: [id number] 3Result Comment: [07/08/2017] [id number] 4Admin Note: [facility] 5Admin Note: [facility] [...] 11 Refills, Maintenance, 10/31/20 14:14:00 EDT, Cream, [facility] #[id number], Partial fill upon patient request if the [...] 11/27/20 10:09:00 EDT, Route to Pharmacy Electronically, [facility] #[id number], please schedule appt for further refills, 165, cm, 11/19/20 11:32:00 EDT, Hei... Start Date: 11/27/20 Status: Ordered Claritin 10 mg oral tablet 10 mg, 1, tablet, By Mouth, Daily, for 90 days, # 90 tablet, Refills 3, Tot. Refills 3, Acute 07/28/21 15:22:00 EST, 08/02/20 15:22:00 EST, Route to Pharmacy Electronically, [facility] #[id number], 165, cm, 07/31/20 14:32:00 EST, Height, 127, [...] PMR, history of smoking fax to : [phone], 04... Start Date: 10/26/20 Status: Ordered Disposable [...] Gm, 3 Refills, Maintenance, 06/22/20 14:58:00 EST, [facility] #[id number], 165, cm, 06/07/20 13:52:00 EST, Height, 127, [...] mL, 5 Refills, Maintenance, 10/01/18 10:08:42 EST, [place], 2 sprays Nares, Both 2 times a [...] 08/02/20 16:13:00 EST, Route to Pharmacy Electronically, [facility] #[id number], D/C RX ON FILE FOR [place]AR[place], 165, [...] tablet, 1 Refills, Maintenance, 07/12/20 13:56:00 EST, [facility] #[id number], Partial fill upon patient request if the prescription is for a schedule II opioid drug., 165, cm, 07/11/20 15:24:00 EST,... Start Date: 07/12/20 Stop Date: 07/05/21 Status: Ordered metoprolol 25 mg oral tablet 25 mg, 1, tablet, By Mouth, 2 times a day, # 60 tablet, Refills 5, Tot. Refills 5, Maintenance, 09/22/20 13:59:00 EST, Route to Pharmacy Electronically, [facility] #[id number], 165, cm, 07/31/2113:32:00 EST, Height, 127, kg, 02/03/20 14:39:00 ED... Start Date: 09/22/20 Status: Ordered Mitigare 0.6 mg oral capsule 1 capsule = 0.6 mg, By Mouth, Daily, # 30 capsule, 11 Refills, Maintenance, 10/31/20 14:29:00 EDT, [facility] #[id number], D/C RX ON FILE FOR COLCHICINE NOT [...] 0 Refills, Maintenance, 06/18/20 16:57:00 EST, Patch, [facility] #[id number], Partial fill upon patient request, 165, cm, 06/07/20 13:52:00 EST, Height, 127, kg, 02/03/20 14:39:00 EDT, Dry Weight Start Date: 06/18/20 Stop Date: 07/30/20 Status: Ordered NuLYTELY with Flavor Packs oral powder for reconstitution See Instructions, Drink 240mL every 15-20 minutes until first half is gone. Repeat 6 hours prior toprocedure., # 4,000 mL, 0 Refills, Maintenance, 06/28/20 17:09:00 EST, [facility] #[id number],Partial fill upon patient request if the prescript... Start Date: 06/28/20 Status: Ordered oxyCODONE 10 mg oral tablet 1 tablet = 10 mg, By Mouth, Every 8 hours, DX Z79.891 G89.29 M47.816 OK TO FILL LESS THAN PRESCRIBED AMOUNT, # 84 tablet, 0 Refills, Maintenance, 11/05/20 17:14:00 EDT, Tablet, [facility] #[id number], 11/06/20, 165, cm, 10/19/20 8:59:00 EDT, Hei... Start Date: 11/05/20 Stop Date: 12/03/20 Status: Ordered penicillin V potassium 250 mg oral tablet 1 tablet = 250 mg, By Mouth, 2 times a day, Cellulitis prophylaxis, # 60 tablet, 11 Refills, Maintenance, 10/30/20 12:09:00 EDT, [facility] #[id number], 165, cm, 10/19/20 8:59:00 EDT, Height, 127, kg, 02/03/20 14:39:00 EDT, Dry Weight Start Date: 10/30/20 Status: Ordered predniSONE 10 mg oral tablet 1 tablet = 10 mg, By Mouth, Daily, # 30 tablet, 5 Refills, Maintenance, 11/19/20 11:50:00 EDT, Tablet, [facility] #[id number], Partial fill upon patient request if the [...] 5 Refills, Maintenance, 04/30/20 15:13:00 EDT, Tablet, [facility] #[id number], 165, cm, 04/30/20 14:30:00 EDT, Height, 127, kg, 02/03/20 14:39:00 EDT, Dry Weight Start Date: 04/30/20 Status: Ordered rosuvastatin 10 mg oral tablet 1 tablet = 10 mg, By Mouth, Daily, # 90 tablet, 3 Refills, Maintenance, 05/03/20 16:35:00 EDT, Tablet, [facility] #[id number], d/c rx for capsules, 165, cm, 04/30/20 14:30:00 EDT, Height, 127, kg, 02/03/20 14:39:00 EDT, Dry Weight Start Date: 05/03/20 Status: Ordered Ventolin HFA 108 mcg/inh inhalation aerosol with adapter 2 puffs, Inhalation, Every 4 hours, PRN Wheezing/Shortness of Breath, # 1 each, 5 Refills, Soft Stop, 11/08/20 8:46:00 EDT, [facility] #[id number], 165, cm, 10/19/20 8:59:00 EDT, Height, 127, kg, 02/03/20 14:39:00 EDT, Dry Weight Start Date: 11/08/20 Status: Ordered warfarin 5 mg oral tablet 1 tablet = 5 mg, By Mouth, Daily, dosing subject to change pending inr lab values, # 30 tablet, 11 Refills, Maintenance, 08/31/20 15:36:00 EST, Tablet, [facility] #[id number], 165, cm, 07/31/20 14:32:00 EST, Height, 127, [...]
--- OUTSIDE RECORDS SUMMARY | 2024-01-02 21:23 | XMS_ITS | Continuity of Care Document ---
Author Organization [facility] Address [address] [place] [id number]- Care Team Providers Care Business Line Manager Name Role Phone Krishan GRIDER, Eulogio Molina Primary Care Physician Encounter [facility] [place] Date(s): 05/19/22 - 06/18/[address] [address] Attending Physician: Desire Velasquez Admitting Physician: Desire [...] vaccine, inactivated 05/10/07 Jarrett rded SARS-CoV-2 mRNA ([id number]-[id number]) vax 08/30/21 Recorded SARS-CoV-2 (COVID-19) mRNA BNT-162b2 vac 01/02/21 Recorded SARS-CoV-2 (COVID-19) mRNA BNT-162b2 vac 12/02/20 Recorded Fluvirin (oldterm) 8 03/22/15 Given Fluzone Preservative-Free (oldterm) 9 03/12/12 Giv en pneumococcal 23-valent vaccine 10/08/11 Given tetanus/diphtheria/pertussis, acel(Tdap) 09/08/11 Given tetanus/diphtheria/pertussis, acel(Tdap) 12/17/06 Recorded influ virus vac, H1N1, inactive(oldterm) 10 05/08/11 Given hepatitis B adult vaccine 06/14/02 Recorded 1Result Comment: [id number] 2Result Comment: [id number] 3Result Comment: [id number] 4Result Comment: [id number] 5Result Comment: [07/08/2017] [id number] 6Admin Note: [facility] 7Admin Note: [facility] 8Admin Note: Given at [facility] 9Admin Note: [...] Gm, 4 Refills, Maintenance, 04/28/22 13:11:00 EDT, [facility], 17, INHALE 2 PUFFS BY MOUTH EVERY FOUR HOURS NEEDED FOR WHEEZING... Start Date: 04/28/22 Status: Ordered cloNIDine 0.1 mg oral tablet See Instructions, TAKE 1 TABLET BY MOUTH TWICE A DAY NEEDED FOR FOR ANXIETY (VIAL), # 60 tablet,Refills 1, Maintenance, 04/28/22 13:11:00 EDT, Instructions Replace Required Details, Route to Pharmacy Electronically, [facility], 159, cm, 06... Start Date: 04/28/22 Status: Ordered colchicine 0.6 mg oral tablet 0.6 mg, 1, tablet, By Mouth, Daily, # 30 tablet, Refills 11, Tot. Refills 11, Maintenance, 227:00:00 EDT, Route to Pharmacy Electronically, [facility], Partial fill upon patient request if the prescription is for a schedule II opioid dr... Start Date: 10/30/21 Status: Ordered digoxin 0.125 mg oral tablet 1, tablet, By Mouth, Daily, # 90 tablet, Refills 0, Maintenance, 05/29/22 6:33:00 EDT, Route to Pharmacy Electronically, [facility], 159, cm, 05/05/22 11:32:00 EDT, Height, 98.8, kg, 229:12:00 EDT, Dry Weight Start Date: 05/29/22 Status: Ordered docusate sodium 100 mg oral capsule 100 mg, 1, capsule, By Mouth, 2 times a day, hold for loose stool, # 60 capsule, Refills 0, Tot. Refills 0, Maintenance, 01/11/22 7:25:00 EDT, Route to Pharmacy Electronically, [facility], Partial fill upon patient request if the prescri... Start Date: 01/11/22 Stop Date: 02/10/22 Status: Ordered duloxetine 20 mg oral enteric coated capsule 2 capsule = 40 mg, By Mouth, Daily at bedtime, # 60 capsule, 11 Refills, Maintenance, 06/25/21 12:00:00 EST, Capsule, [facility], Partial fill upon patient [...] Replace Required Details, Route to Pharmacy Electronically, [facility], 165, cm, 06/25/21 11:35:00 EST, Height, 127, kg, 02/03/20 14:39:00 EDT, Dry Weight Start Date: 08/05/21 Status: Ordered penicillin V potassium 250 mg oral tablet 1 tablet, By Mouth, 2 times a day, CELLULITIS PROPHYLAXIS., # 60 tablet, 5 Refills, Maintenance, 05/29/22 6:19:00 EDT, [facility], 159, cm, 05/05/22 11:32:00 EDT, Height, 98.8, kg, 01/10/22 9:12:00 EDT, Dry Weight Start Date: 05/29/22 Status: Ordered rOPINIRole 0.5 mg oral tablet 1 tablet, By Mouth, 3 times a day, # 90 tablet, 5 Refills, 03/07/22 6:14:00 EDT, [facility], 159, cm, 01/11/22 15:15:00 EDT, Height, 98.8, kg, 01/10/22 9:12:00 EDT, Dry Weight Start Date: 03/07/22 Status: Ordered rosuvastatin 10 mg oral tablet See Instructions, TAKE 1 TABLET BY MOUTH DAILY, # 90 tablet, 1 Refills, Maintenance, 04/04/22 11:35:00 EDT, [facility], 159, cm, 01/11/22 15:15:00 EDT, Height, 98.8, kg, 01/10/22 9:12:00 EDT,Dry Weight Start Date: 04/04/22 Status: Ordered Symbicort 80mcg/4.5mcg Inhaler See Instructions, INHALE 2 PUFFS BY MOUTH TWICE A DAY RINSE MOUTH AND THROAT AFTER USE, # 10.2 Gm, Refills 5, Instructions Replace Required Details, Route to Pharmacy Electronically, INPDP_[id number], [facility], 159, cm, 01/11/22 15:15:00 EDT... 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 [...] ruddy ayesha entered on: 05/04/18 Sex Female EKG study * Event Display: EKG Authored Date: Patient Care team information Care Team Personnel Name: Sandra Wills NP Position: [facility] PCO Associate Professional Member Role: Primary Care Nurse Address: Address: [address] [place] [address] [place] [address]- [place] Name: Marley Alejo RN Position: [facility] ED RN W/OE and Tasks Member Role: Primary Care Nurse Name: Eulogio Nickerson MD Position: [facility] Primary Care Physician Member Role: PCP Address: Address: [address] [place] [address]- [place] Name: Alma Delia Fonseca PharmD Position: [facility] Associate Professional Member Role: Lifetime Consulting Provider Address: Address: [address] [place] [address] [place] [address]- [place] Name: Yolis Mattson RN Position: S RN Member Role: Primary Care Nurse Name: Priscila Garzon RN Position: S RN Member Role: Primary Care Nurse Care Team Related Persons Name: INDERJIT CARMENZAIRAIDA Address: home [address] [place] [address] Name: ANDRA JANSEN Address: home [address] [place] [address] Name: AURELIA SHETH Address: home [address] [place] [address] Name: BRE OSORIO Address: home [address] [place] [address]
--- OUTSIDE RECORDS SUMMARY | 2024-01-02 21:23 | XMS_ITS | Continuity of Care Document ---
Author Organization [facility] Address [address] [place] [address], [address] [place] [address]- Care Team Providers Care Mains And Service Supervisor Name Role Phone Fuentes Garcia MD Primary Care Physician Encounter [facility] Date(s): 05/21/19 - 09/18/19 [facility] [address] [facility], 4th [place] [address]- Attending Physician: Not on Staff, Attending MD [...] H1N1, inactive(oldterm) 7 05/08/11 Given 1Result Comment: [id number] 2Result Comment: [07/08/2017] 38810-980-21 3Admin Note: [facility] 4Admin Note: [facility] [...] Maintenance, 07/18/19 9:13:00 EST, [facility] [address] [place] [address], 162, cm, 05/23/19 11:50:00 EDT, Height, 116.4, kg, 05/04/19 11:52:00 EDT, Dry Weight Start Date: 07/18/19 Stop Date: 07/19/19 Status: Ordered chlorthalidone 25 mg oral tablet 25 mg, 1, tablet, By Mouth, Daily, # 30 tablet, Refills 2, Tot. Refills 2, Maintenance, 06/17/19 14:30:22 EST, Route to Pharmacy Electronically, NCPDP_ID- [id number], [facility] [address] [facility], please schedule appt for further refills Start Date: 06/17/19 Status: Ordered Claritin 10 mg oral tablet 10 mg, 1, tablet, By Mouth, Daily, for 30 days, # 30 tablet, Refills 11, Tot. Refills 11, Acute 05/11/20 17:36:41 EDT, 05/17/19 17:36:41 EDT, Route to Pharmacy Electronically, NCPDP_[id number], [facility] [address] Start Date: 05/17/19 Stop Date: 05/11/20 [...] mL, 5 Refills, Maintenance, 10/01/18 10:08:42 EST, [place], 2 sprays Nares, Both 2 times a [...] 12/08/18 12:09:04 EDT, Route to Pharmacy Electronically, NCPDP_ID-[id number], [facility] [address] [place] [address] Start Date: 12/08/18 Status: Ordered MiraLax oral [...] 0 Refills, Maintenance, 09/12/19 13:08:00 EST, Tablet, [facility][id number], 09/13/19, 162, cm, 05/23/19 11:50:00 EDT, He... 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
--- OUTSIDE RECORDS SUMMARY | 2024-01-02 21:23 | XMS_ITS | Continuity of Care Document ---
Author Organization [facility] Address [address] [place] [address]- Care Team Providers Care Carpet Floor Layer Apprentice Name Role Phone Fuentes Garcia MD Primary Care Physician Encounter [facility] Date(s): 02/20/21 - 03/28/[address] [id number] Attending Physician: Fuentes Garcia MD Admitting [...] Gi octavio influenza virus vaccine, inactivated 08/12/16 Jrarett rded influenza virus vaccine, inactivated 05/23/14 Give [...] B adult vaccine 06/14/02 Recorded 1Result Comment: [id number] 2Result Comment: [id number] 3Result Comment: [07/08/2017] 49434-562-24 4Admin Note: [facility] 5Admin Note: [facility] [...] 11 Refills, Maintenance, 10/31/20 14:14:00 EDT, Cream, [id number], Partial fill upon patient request if the [...] 02/12/21 12:56:00 EDT, Route to Pharmacy Electronically, [facility] #[id number], 165, cm, 01/11/21 14:05:00 EDT, Height, 127, [...] PMR, history of smoking fax to : [phone], 04... Start Date: 10/26/20 Status: Ordered Disposable [...] Gm, 3 Refills, Maintenance, 06/22/20 14:58:00 EST, [facility] #[id number], 165, cm, 06/07/20 13:52:00 EST, Height, 127, [...] mL, 5 Refills, Maintenance, 10/01/18 10:08:42 EST, [place], 2 sprays Nares, Both 2 times a [...] 08/02/20 16:13:00 EST, Route to Pharmacy Electronically, [facility] #[id number], D/C RX ON FILE FOR ABRAM, 165, [...] 3 Refills, Maintenance, 02/25/21 10:31:00 EDT, Tablet, [facility] #[id number], Partial fill upon patient request if the prescription is for a schedule II opioid drug., 165, cm, 01/11/21 14:... Start Date: 02/25/21 Status: Ordered methenamine hippurate 1 gm oral tablet 1 tablet = 1 Gm, By Mouth, 2 times a day, # 60 tablet, 1 Refills, Maintenance, 07/12/20 13:56:00 EST, [facility] #[id number], Partial fill upon patient request if the prescription is for a schedule II opioid drug., 165, cm, 07/11/20 15:24:00 EST,... Start Date: 07/12/20 Stop Date: 07/05/21 Status: Ordered Metoprolol Tartrate 25 mg oral tablet 1 tablet, By Mouth, 2 times a day, # 60 tablet, 2 Refills, Maintenance, 03/07/21 10:08:00 EDT, [facility] #[id number], 165, cm, 02/28/21 14:22:00 EDT, Height, 127, kg, 02/03/20 14:39:00 EDT, DryWeight Start Date: 03/07/21 Status: Ordered Mitigare 0.6 mg oral capsule 1 capsule, By Mouth, Daily, # 30 capsule, 11 Refills, Maintenance, 12/31/20 16:51:00 EDT, [facility] #[id number], 165, cm, 11/19/20 11:32:00 EDT, Height, 127, [...] 0 Refills, Maintenance, 06/18/20 16:57:00 EST, Patch, [facility] #[id number], Partial fill upon patient request, 165, cm, 06/07/20 13:52:00 EST, Height, 127, kg, 02/03/20 14:39:00 EDT, Dry Weight Start Date: 06/18/20 Stop Date: 07/30/20 Status: Ordered NuLYTELY with Flavor Packs oral powder for reconstitution See Instructions, Drink 240mL every 15-20 minutes until first half is gone. Repeat 6 hours prior toprocedure., # 4,000 mL, 0 Refills, Maintenance, 06/28/20 17:09:00 EST, [facility] #[id number],Partial fill upon patient request if the prescript... Start Date: 06/28/20 Status: Ordered oxyCODONE 5 mg oral tablet 10 mg, 2, tablet, By Mouth, Every 8 hours, DX Z79.891 G89.29 M47.816 OK TO FILL LESS THAN PRESCRIBED AMOUNT, # 168 tablet, Refills 0, Tot. Refills 0, Maintenance, 03/25/21 16:45:00 EDT, Route to Pharmacy Electronically, [facility] #[id number], D... Start Date: 03/25/21 Stop Date: 04/22/21 Status: Ordered penicillin V potassium 250 mg oral tablet 1 tablet = 250 mg, By Mouth, 2 times a day, Cellulitis prophylaxis, # 60 tablet, 11 Refills, Maintenance, 10/30/20 12:09:00 EDT, [facility] #[id number], 165, cm, 10/19/20 8:59:00 EDT, Height, 127, kg, 02/03/20 14:39:00 EDT, Dry Weight Start Date: 10/30/20 Status: Ordered predniSONE 5 mg oral tablet 1 tablet = 5 mg, By Mouth, Daily, # 30 tablet, 0 Refills, Maintenance, 01/11/21 14:20:00 EDT, Tablet, [facility] #[id number], Partial fill upon patient request if the [...] cm, 09/21/19 12:01:00 EST, Height, 116.4, kg, .. Start Date: 11/18/19 Status: Ordered risperiDONE 1 mg oral tablet take 1 tablet by mouth twice a day Start Date: 05/23/19 Status: Ordered rOPINIRole 0.5 mg oral tablet 1 tablet = 0.5 mg, By Mouth, 3 times a day, # 90 tablet, 5 Refills, Maintenance, 04/30/20 15:13:00 EDT, Tablet, [facility] #[id number], 165, cm, 04/30/20 14:30:00 EDT, Height, 127, kg, 02/03/20 14:39:00 EDT, Dry Weight Start Date: 04/30/20 Status: Ordered rosuvastatin 10 mg oral tablet 1 tablet = 10 mg, By Mouth, Daily, # 90 tablet, 3 Refills, Maintenance, 05/03/20 16:35:00 EDT, Tablet, [facility] #[id number], d/c rx for capsules, 165, cm, 04/30/20 14:30:00 EDT, Height, 127, kg, 02/03/20 14:39:00 EDT, Dry Weight Start Date: 05/03/20 Status: Ordered Ventolin HFA 108 mcg/inh inhalation aerosol with adapter 2 puffs, Inhalation, Every 4 hours, PRN Wheezing/Shortness of Breath, # 1 each, 5 Refills, Soft Stop, 11/08/20 8:46:00 EDT, [facility] #[id number], 165, cm, 10/19/20 8:59:00 EDT, Height, 127, kg, 02/03/20 14:39:00 EDT, Dry Weight Start Date: 11/08/20 Status: Ordered warfarin 2.5 mg oral tablet See Instructions, take 2.5mg sun sat subjet to change based on INR per MD, # 90 each, 3 Refills, Maintenance, 02/11/21 10:38:00 EDT, Tablet, [facility] #[id number], PLEASE GIVE THIS IN COMBINATION WITH 5MG TABLETS;, 165, cm, 01/11/21... Start Date: 02/11/21 Status: Ordered warfarin 5 mg oral tablet 1 tablet = 5 mg, By Mouth, Daily, dosing subject to change pending inr lab values TAKE thu,# 90 tablet, 11 Refills, Maintenance, 02/11/21 10:42:00 EDT, Tablet, [facility] #[id number], PLEASE GIVE BOTH 5MG TABLETS AND 2.5MG [...]
--- OUTSIDE RECORDS SUMMARY | 2024-01-02 21:23 | XMS_ITS | Continuity of Care Document ---
Author Organization [facility] Address [address] [place] [address]- Care Team Providers Care Pulpit Operator Name Role Phone Krishan GRIDER, Eulogio Molina Primary Care Physician [phone] [place] [facility] [place]02/22 [facility] [place], [facility] [address] [place] [address]- Allergies, Adverse Reactions, Alerts Substance Reaction Severity [...] vaccine, inactivated 05/10/07 Jarrett rded SARS-CoV-2 mRNA ([id number]) vax 08/30/21 Recorded SARS-CoV-2 (COVID-19) mRNA BNT-162b2 vac 01/02/21 Recorded SARS-CoV-2 (COVID-19) mRNA BNT-162b2 vac 12/02/20 Recorded Fluvirin (oldterm) 8 03/22/15 Given Fluzone Preservative-Free (oldterm) 9 03/12/12 Giv en pneumococcal 23-valent vaccine 10/08/11 Given tetanus/diphtheria/pertussis, acel(Tdap) 09/08/11 Given tetanus/diphtheria/pertussis, acel(Tdap) 12/17/06 Recorded influ virus vac, H1N1, inactive(oldterm) 10 05/08/11 Given hepatitis B adult vaccine 06/14/02 Recorded 1Result Comment: [id number] 2Result Comment: [id number] 3Result Comment: [id number] 4Result Comment: [id number] 5Result Comment: [07/08/2017] 56502-312-12 6Admin Note: [facility] 7Admin Note: [facility] [...] Gm, 4 Refills, Maintenance, 09/08/22 14:55:00 EST, [facility], 30, INHALE 2 PUFFS BY MOUTH EVERY FOUR HOURS NEEDED FOR WHEEZING... Start Date: 09/08/22 Status: Ordered cloNIDine 0.1 mg oral tablet 1, tablet, By Mouth, 2 times a day, PRN, # 56 tablet, Refills 2, Maintenance, NEEDED FOR FOR ANXIETY (VIAL) ^VIAL, 10/03/22 11:23:00 EST, [facility], 160,cm, 09/09/22 14:31:00 EST, Height, 98.8, kg, 07/17/... Start Date: 10/03/22 Status: Ordered colchicine 0.6 mg oral tablet 1, tablet, By Mouth, Daily, ^1R1., # 30 tablet, Refills 11, Maintenance, 09/10/22 5:31:00 EST, Route to Pharmacy Electronically, [facility], 160, cm, 09/09/22 14:31:00 EST, Height, 98.8, kg, 07/17/22 8:58:00 EST, Dry Weight Start Date: 09/10/22 Status: Ordered docusate sodium 100 mg oral capsule 100 mg, 1, capsule, By Mouth, 2 times a day, hold for loose stool, # 60 capsule, Refills 0, Tot. Refills 0, Maintenance, 01/11/22 7:25:00 EDT, Route to Pharmacy Electronically, [facility], Partial fill upon patient request if the prescri... Start Date: 01/11/22 Stop Date: 02/10/22 Status: Ordered duloxetine 20 mg oral enteric coated capsule 2 capsule = 40 mg, By Mouth, Daily at bedtime, # 60 capsule, 11 Refills, Maintenance, 06/25/21 12:00:00 EST, Capsule, [facility], Partial fill upon patient request [...] Acute 03/16/23 6:08:00 EDT, 10/14/22 6:08:00 EDT, [place], [facility] #[id number], Partial fill upon patient request if the [...] opioid drug. Start Date: 07/18/22 Status: Ordered Maalox Plus Liquid 30 mL, [...] 5 Refills, Maintenance, 07/29/22 6:50:00 EST, Tablet, [facility], Partial fill upon patient request if the prescription is for a schedule II opioid drug., 160, cm, 07/18/22 11:39:00 EST,... Start Date: 07/29/22 Status: Ordered predniSONE 10 mg oral tablet See Instructions, 6 tabs daily x 3 days, then 5 tabs daily x 3 days, then 4 tabs daily x 3 days, then 3 tabs daily x 3 days, then 2 tabs daily x 3 days, then 1 tab daily x 3 days, then d/c., # 63 tablet, 0 Refills, Maintenance, 10/14/22 6:07:00 [facility]. Start Date: 10/14/22 Status: Ordered rOPINIRole 0.5 mg oral tablet See Instructions, TAKE 1 TABLET BY MOUTH THREE TIMES DAILY^1R1,1R3,1R4, # 90 tablet, 5 Refills, Maintenance, 07/24/22 23:41:00 EST, [facility], 160, cm, 07/18/22 11:39:00 EST, Height, 98.8, kg, 07/17/22 8:58:00 EST, Dry Weight Start Date: 07/24/22 Status: Ordered rosuvastatin 10 mg oral tablet 1 tablet, By Mouth, Daily, ^1R1., # 30 tablet, 5 Refills, Maintenance, 09/10/22 5:31:00 EST, [facility], 160, cm, 09/09/22 14:31:00 EST, Height, 98.8, kg, 07/17/22 8:58:00 EST, Dry Weight Start Date: 09/10/22 Status: Ordered Symbicort 80mcg/4.5mcg Inhaler See Instructions, INHALE 2 PUFFS BY MOUTH TWICE A DAY RINSE MOUTH AND THROAT AFTER USE, # 10.2 Gm, Refills 5, Maintenance, 07/30/22 21:16:00 EST, Instructions Replace Required Details, Route to Pharmacy Electronically, NCPDP_[id number], [facility]... Start Date: 07/30/22 Status: Ordered warfarin 1 mg oral tablet See Instructions, Take 1-10 tabs daily as directed by [facility]., # 150 tablet, 0 Refills, Maintenance, 07/18/22 8:55:00 EST, Tablet, [facility], Partial fill upon [...] Care team information Care Team Personnel Name: Johann ROMERO Sandra M Position: [facility] PCO Associate Professional Member Role: Primary Care Nurse Address: Address: [address] [place] [address] [place] [address]- Name: Marley Alejo RN Position: [facility] RN Member Role: Primary Care Nurse Name: Eulogio Nickerson MD Position: [facility] Primary Care Physician Member Role: PCP Address: Address: [address] [place] [address]- [place] Name: Alma Delia Fonseca PharmD Position: [facility] Associate Professional Member Role: Lifetime Consulting Provider Address: Address: [address] [place] [address]- Name: Yolis Mattson RN Position: [facility] RN Member Role: Primary Care Nurse Name: Priscila Garzon RN Position: [facility] RN Member Role: Primary Care Nurse Name: Renea Mart RN Position: [facility] RN Member Role: Primary Care Nurse Care Team Related Persons Name: FAUZIA JANSEN Address: home [address] [place] [address] Name: AURELIA SHETH Address: [address] [place] [address] Name: BRE OSORIO Address: [address] [place] [address]
--- OUTSIDE RECORDS SUMMARY | 2024-01-02 21:23 | XMS_ITS | Continuity of Care Document ---
Author Organization [facility] Address [address] [place] [address]- Care Team Providers Care Forensic Science Technician Name Role Phone Krishan GRIDER, Eulogio Molina Primary Care Physician [phone] Encounter [facility] Date(s): 05/28/21 - 10/03/[address] [address] Attending Physician: Shelton Casarez MD Admitting Physician: Shelton Casarez MD Allergies, Adverse Reactions, Alerts Substance Reaction [...] vaccine, inactivated 05/10/07 Jarrett rded SARS-CoV-2 mRNA (usrxktv-[id number]-dfvja) vax 08/30/21 Recorded SARS-CoV-2 (COVID-19) mRNA BNT-162b2 vac 01/02/21 Recorded SARS-CoV-2 (COVID-19) mRNA BNT-162b2 vac 12/02/20 Recorded Fluvirin (oldterm) 8 03/22/15 Given Fluzone Preservative-Free (oldterm) 9 03/12/12 Giv en pneumococcal 23-valent vaccine 10/08/11 Given tetanus/diphtheria/pertussis, acel(Tdap) 09/08/11 Given tetanus/diphtheria/pertussis, acel(Tdap) 12/17/06 Recorded influ virus vac, H1N1, inactive(oldterm) 10 05/08/11 Given hepatitis B adult vaccine 06/14/02 Recorded 1Result Comment: [id number] 2Result Comment: [id number] 3Result Comment: [id number] 4Result Comment: [id number] 5Result Comment: [07/08/2017] 10428-107-29 6Admin Note: [facility] 7Admin Note: [facility] [...] Gm, 4 Refills, Maintenance, 09/08/22 14:55:00 EST, [facility], 30, INHALE 2 PUFFS BY MOUTH EVERY FOUR HOURS NEEDED FOR WHEEZING... Start Date: 09/08/22 Status: Ordered cloNIDine 0.1 mg oral tablet 1, tablet, By Mouth, 2 times a day, PRN, # 56 tablet, Refills 2, Maintenance, NEEDED FOR FOR ANXIETY (VIAL) ^VIAL, 10/03/22 11:23:00 EST, Route to Pharmacy Electronically, [facility], 160,cm, 09/09/22 14:31:00 EST, Height, 98.8, kg, 07/17/... Start Date: 10/03/22 Status: Ordered colchicine 0.6 mg oral tablet 1, tablet, By Mouth, Daily, ^1R1., # 30 tablet, Refills 11, Maintenance, 09/10/22 5:31:00 EST, [facility], 160, cm, 09/09/22 14:31:00 EST, Height, 98.8, kg, 07/17/22 8:58:00 EST, Dry Weight Start Date: 09/10/22 Status: Ordered docusate sodium 100 mg oral capsule 100 mg, 1, capsule, By Mouth, 2 times a day, hold for loose stool, # 60 capsule, Refills 0, Tot. Refills 0, Maintenance, 01/11/22 7:25:00 EDT, Route to Pharmacy Electronically, [facility], Partial fill upon patient request if [...] 07/17/22 17:07:00 EST, [facility] to Pharm[facility] Electronically, [facility], 160, cm, 07/17/22 12:03:00 EST, Height, [...] 5 Refills, Maintenance, 07/29/22 6:50:00 EST, Tablet, [facility], Partial fill [...] tablet, 0 Refills, Maintenance, 09/04/22 16:29:00 EST, [facility], Partial fill upon patient request if the prescription is for a schedule II opioid drug., 160, cm, 09/04/22 16:17:00 EST, Height, 98.8, k... Start Date: 09/04/22 Status: Ordered rOPINIRole 0.5 mg oral tablet See Instructions, TAKE 1 TABLET BY MOUTH THREE TIMES DAILY^1R1,1R3,1R4, # 90 tablet, 5 Refills, Maintenance, 07/24/22 23:41:00 EST, [facility], 160, cm, 07/18/22 11:39:00 EST, Height, 98.8, kg, 07/17/22 8:58:00 EST, Dry Weight Start Date: 07/24/22 Status: Ordered rosuvastatin 10 mg oral tablet 1 tablet, By Mouth, Daily, ^1R1., # 30 tablet, 5 Refills, Maintenance, 09/10/22 5:31:00 EST, [facility], 160, cm, 09/09/22 14:31:00 EST, Height, 98.8, kg, 07/17/22 8:58:00 EST, Dry Weight Start Date: 09/10/22 Status: Ordered Symbicort 80mcg/4.5mcg Inhaler See Instructions, INHALE 2 PUFFS BY MOUTH TWICE A DAY RINSE MOUTH AND THROAT AFTER USE, # 10.2 Gm, Refills 5, Maintenance, 07/30/22 21:16:00 EST, Instructions Replace Required Details, Route to Pharmacy Electronically, NCPDP_[id number], [facility]... 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 current use of opiate analgesic Confirmed Active [...] Team Personnel Name: Sandra Wills NP Position: [facility] PCO Associate Professional Member Role: Primary Care Nurse Address: Address: [address] [place] [address] [place] [address]- [place] Name: Marley Alejo RN Position: [facility] RN Member Role: Primary Care Nurse Name: Eulogio Nickerson MD Position: [facility] Primary Care Physician Member Role: PCP Address: Address: [address] [place] [address]- [place] Name: Alma Delia Fonseca PharmD Position: [facility] Associate Professional Member Role: Lifetime Consulting Provider Address: Address: [address] [place] [address] [place] [address]- [place] Name: Yolis Mattson RN Position: [facility] RN Member Role: Primary Care Nurse Name: Priscila Garzon RN Position: [facility] RN Member Role: Primary Care Nurse Name: Renea Mart RN Position: [facility] RN Member Role: Primary Care Nurse Care Team Related Persons Name: FAUZIA JANSEN Address: [address] [place] [address] Name: AURELIA SHETH Address: [address] [place] [address] Name: BRE OSORIO Address: home [address] [place] [address]
--- OUTSIDE RECORDS SUMMARY | 2024-01-02 21:23 | XMS_ITS | Continuity of Care Document ---
Author Organization [facility] ter Address [address] [place] [address]- Care Team Providers Care Sample Patternmaker Name Role Phone Krishan GRIDER, Eulogio Molina Primary Care Physician En[place] [facility] Date(s): 06/03/22 - 08/02/[address] [address] Attending Physician: Irving Cam MD Admitting Physician: [...] vaccine, inactivated 05/10/07 Jarrett rded SARS-CoV-2 mRNA (iwvbhfg-bppk-pnnem) vax 08/30/21 Recorded SARS-CoV-2 (COVID-19) mRNA BNT-162b2 vac 01/02/21 Recorded SARS-CoV-2 (COVID-19) mRNA BNT-162b2 vac 12/02/20 Recorded Fluvirin (oldterm) 8 03/22/15 Given Fluzone Preservative-Free (oldterm) 9 03/12/12 Giv en pneumococcal 23-valent vaccine 10/08/11 Given tetanus/diphtheria/pertussis, acel(Tdap) 09/08/11 Given tetanus/diphtheria/pertussis, acel(Tdap) 12/17/06 Recorded influ virus vac, H1N1, inactive(oldterm) 10 05/08/11 Given hepatitis B adult vaccine 06/14/02 Recorded 1Result Comment: [id number] 2Result Comment: [id number] 3Result Comment: [id number] 4Result Comment: [id number] 5Result Comment: [07/08/2017] [id number] 6Admin Note: [facility] 7Admin Note: [facility] [...] Gm, 4 Refills, Maintenance, 04/28/22 13:11:00 EDT, [facility], 17, INHALE 2 PUFFS BY [...] Maintenance, 227:00:00 EDT, Route to Pharmacy Electronically, [facility], Partial fill upon patient request if the prescription is for a schedule II opioid dr... Start Date: 10/30/21 Status: Ordered docusate sodium 100 mg oral capsule 100 mg, 1, capsule, By Mouth, 2 times a day, hold for loose stool, # 60 capsule, Refills 0, Tot. Refills 0, Maintenance, 01/11/22 7:25:00 EDT, Route to Pharmacy Electronically, [facility], Partial fill upon patient request if the prescri... Start Date: 01/11/22 Stop Date: 02/10/22 Status: Ordered duloxetine 20 mg oral enteric coated capsule 2 capsule = 40 mg, By Mouth, Daily at bedtime, # 60 capsule, 11 Refills, Maintenance, 06/25/21 12:00:00 EST, Capsule, [facility], Partial fill upon patient request [...] 07/17/22 17:07:00 EST, Route to Pharmacy Electronically, [facility], 160, cm, 07/17/22 12:03:00 EST, [...] 5 Refills, Maintenance, 07/29/22 6:50:00 EST, Tablet, [facility], Partial fill upon patient request [...] tablet, 5 Refills, Maintenance, 07/24/22 23:41:00 EST, [facility], 160, cm, 07/18/22 11:39:00 EST, Height, [...] Gm, 5 Refills, Maintenance, 07/17/22 11:09:00 EST, [facility], 160, cm, 07/17/22 8:49:00 EST, Height, 98.8, kg, 07/17/22 8:58:00 EST, Dry Weight Start Date: 07/17/22 Status: Ordered Symbicort 80mcg/4.5mcg Inhaler See Instructions, INHALE 2 PUFFS BY MOUTH TWICE A DAY RINSE MOUTH AND THROAT AFTER USE, # 10.2 Gm, Refills 5, Maintenance, 07/30/22 21:16:00 EST, Instructions Replace Required Details, Route to Pharmacy Electronically, [facility]DP[facility][id number], [facility] 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 Confirmed [...] Member Role: Primary Care Nurse Address: Address: [address] [place] [address] [place] [address]- Name: Marley Alejo RN Position: [facility] ED RN W/OE and Tasks Member Role: Primary Care Nurse Name: Eulogio Nickerson MD Position: [facility] Primary Care Physician Member Role: PCP Address: Address: [address] [place] [address]- [place] Name: Alma Delia Fonseca PharmD Position: [facility] Associate Professional Member Role: Lifetime Consulting Provider Address: Address: [address] [place] [address]- Name: Yolis Mattson RN Position: S RN Member Role: Primary Care Nurse Name: Priscila Garzon RN Position: [facility] RN Member Role: Primary Care Nurse Name: Renea Mart RN Position: [facility] RN Member Role: Primary Care Nurse Care Team Related Persons Name: FAUZIA JANSEN Address: [address] [place] [address] Name: AURELIA SHETH Address: [address] [place] [address] Name: BRE OSORIO Address: [address] [place] [address]
--- OUTSIDE RECORDS SUMMARY | 2024-01-02 21:23 | XMS_ITS | Continuity of Care Document ---
Author Organization [facility] ter Address [address] [place] [address]- Care Team Providers Care Customs Import Specialist Name Role Phone Radha GRIDER, Fuentes Kenny Primary Care Physician [phone] Encounter [facility] Date(s): 06/29/20 - 02/01/[address] [address] Attending Physician: Shelton Casarez MD Admitting Physician: [...] B adult vaccine 06/14/02 Recorded 1Result Comment: [id number] 2Result Comment: [id number] 3Result Comment: [07/08/2017] [id number] 4Admin Note: [facility] 5Admin Note: [facility] [...] 11 Refills, Maintenance, 10/31/20 14:14:00 EDT, Cream, [facility] #[id number], Partial fill upon patient request if the [...] 11/27/20 10:09:00 EDT, Route to Pharmacy Electronically, [facility][id number], please schedule appt for further refills, 165, cm, 11/19/20 11:32:00 EDT, Hei... Start Date: 11/27/20 Status: Ordered Claritin 10 mg oral tablet 10 mg, 1, tablet, By Mouth, Daily, for 90 days, # 90 tablet, Refills 3, Tot. Refills 3, Acute 07/28/21 15:22:00 EST, 08/02/20 15:22:00 EST, Route to Pharmacy Electronically, [facility] #[id number], 165, cm, 07/31/20 14:32:00 EST, Height, 127, [...] PMR, history of smoking fax to : [phone], 04... Start Date: 10/26/20 Status: Ordered Disposable [...] Gm, 3 Refills, Maintenance, 06/22/20 14:58:00 EST, [facility] #[id number], 165, cm, 06/07/20 13:52:00 EST, Height, 127, [...] mL, 5 Refills, Maintenance, 10/01/18 10:08:42 EST, Shelly, 2 sprays Nares, Both 2 times a [...] 08/02/20 16:13:00 EST, Route to Pharmacy Electronically, [facility][id number], D/C RX ON FILE FOR ABRAM, 165, [...] tablet, 1 Refills, Maintenance, 07/12/20 13:56:00 EST, [facility] #[id number], Partial fill upon patient request if the prescription is for a schedule II opioid drug., 165, cm, 07/11/20 15:24:00 EST,... Start Date: 07/12/20 Stop Date: 07/05/21 Status: Ordered metoprolol 25 mg oral tablet 25 mg, 1, tablet, By Mouth, 2 times a day, # 60 tablet, Refills 5, Tot. Refills 5, Maintenance, 09/22/20 13:59:00 EST, Route to Pharmacy Electronically, [facility] #[id number], 165, cm, 07/31/2113:32:00 EST, Height, 127, kg, 02/03/20 14:39:00 ED... Start Date: 09/22/20 Status: Ordered Mitigare 0.6 mg oral capsule 1 capsule, By Mouth, Daily, # 30 capsule, 11 Refills, Maintenance, 12/31/20 16:51:00 EDT, [facility] #[id number], 165, cm, 11/19/20 11:32:00 EDT, Height, 127, [...] 0 Refills, Maintenance, 06/18/20 16:57:00 EST, Patch, [facility] #27157, Partial fill upon patient request, 165, cm, 06/07/20 13:52:00 EST, Height, 127, kg, 02/03/20 14:39:00 EDT, Dry Weight Start Date: 06/18/20 Stop Date: 07/30/20 Status: Ordered NuLYTELY with Flavor Packs oral powder for reconstitution See Instructions, Drink 240mL every 15-20 minutes until first half is gone. Repeat 6 hours prior toprocedure., # 4,000 mL, 0 Refills, Maintenance, 06/28/20 17:09:00 EST, [facility] #05641,Partial fill upon patient request if the prescript... Start Date: 06/28/20 Status: Ordered oxyCODONE 10 mg oral tablet 1 tablet = 10 mg, By Mouth, Every 8 hours, DX Z79.891 G89.29 M47.816 OK TO FILL LESS THAN PRESCRIBED AMOUNT, # 84 tablet, 0 Refills, Maintenance, 01/25/21 16:57:00 EDT, Tablet, [facility] #[id number], 01/29/21, 165, cm, 01/11/21 14:05:00 EDT, He... Start Date: 01/25/21 Stop Date: 02/22/21 Status: Ordered penicillin V potassium 250 mg oral tablet 1 tablet = 250 mg, By Mouth, 2 times a day, Cellulitis prophylaxis, # 60 tablet, 11 Refills, Maintenance, 10/30/20 12:09:00 EDT, [facility] #[id number], 165, cm, 10/19/20 8:59:00 EDT, Height, 127, kg, 02/03/20 14:39:00 EDT, Dry Weight Start Date: 10/30/20 Status: Ordered predniSONE 5 mg oral tablet 1 tablet = 5 mg, By Mouth, Daily, # 30 tablet, 0 Refills, Maintenance, 01/11/21 14:20:00 EDT, Tablet, [facility] #[id number], Partial fill upon patient request if the [...] 5 Refills, Maintenance, 04/30/20 15:13:00 EDT, Tablet, [facility] #[id number], 165, cm, 04/30/20 14:30:00 EDT, Height, 127, kg, 02/03/20 14:39:00 EDT, Dry Weight Start Date: 04/30/20 Status: Ordered rosuvastatin 10 mg oral tablet 1 tablet = 10 mg, By Mouth, Daily, # 90 tablet, 3 Refills, Maintenance, 05/03/20 16:35:00 EDT, Tablet, [facility] #[id number], d/c rx for capsules, 165, cm, 04/30/20 14:30:00 EDT, Height, 127, kg, 02/03/20 14:39:00 EDT, Dry Weight Start Date: 05/03/20 Status: Ordered Ventolin HFA 108 mcg/inh inhalation aerosol with adapter 2 puffs, Inhalation, Every 4 hours, PRN Wheezing/Shortness of Breath, # 1 each, 5 Refills, Soft Stop, 11/08/20 8:46:00 EDT, [facility] #[id number], 165, cm, 10/19/20 8:59:00 EDT, Height, 127, kg, 02/03/20 14:39:00 EDT, Dry Weight Start Date: 11/08/20 Status: Ordered warfarin 5 mg oral tablet 1 tablet = 5 mg, By Mouth, Daily, dosing subject to change pending inr lab values, # 30 tablet, 11 Refills, Maintenance, 08/31/20 15:36:00 EST, Tablet, [facility] #[id number], 165, cm, 07/31/20 14:32:00 EST, Height, 127, [...]
--- OUTSIDE RECORDS SUMMARY | 2024-01-02 21:23 | XMS_ITS | Continuity of Care Document ---
Author Organization [facility] Address [address] [place] [address]- Care Team Providers Care Wall Washer Name Role Phone Krishan GRIDER, Eulogio Molina Primary Care Physician En[place] [facility] Date(s): 11/08/21 - 12/08/21 [facility] [address] [place], [place] [address] Attending Physician: Admtr, Allan8 Admitting Physician: Admtr, Ar8 Referring Physician: Admtr, Ar8 Allergies, Adverse Reactions, Alerts Substance Reaction Severity Status Adhesive Bandage Active Dust copd exac/sinus congestion A ctive Immunizations Given and Recorded Vaccine Date Status Refusal Reason SARS-CoV-2 mRNA (ynizskt-evrr-ynauc) vax 08/30/21 Recorded influenza virus vaccine, inactivated [...] B adult vaccine 06/14/02 Recorded 1Result Comment: [id number] 2Result Comment: [id number] 3Result Comment: [id number] 4Result Comment: [07/08/2017] [id number] 5Admin Note: [facility] 6Admin Note: [facility] [...] 8.5 Gm, 5 Refills, 05/29/21 17:13:00 EDT, [facility] #[id number], 17, INHALE 2 PUFFS BY MOUTH EVERY 4 HOURS NEEDED FOR WHEEZING OR SHORTNE... Start Date: 05/29/21 Status: Ordered calcipotriene 0.005% topical cream 1 application, Topically, 2 times a day, # 60 Gm, 11 Refills, Maintenance, 11/15/21 11:54:00 EDT, Cream, [facility], Partial fill upon patient request if the prescription is for a schedule IIopioid drug., 1 application Topically 2 times a day... Start Date: 11/15/21 Status: Ordered colchicine 0.6 mg oral tablet 0.6 mg, 1, tablet, By Mouth, Daily, # 30 tablet, Refills 11, Tot. Refills 11, Maintenance, :00:00 EDT, Route to Pharmacy Electronically, [email or web address], Partial fill upon patient request if the prescription is for a schedule II opioid drKatie. Start Date: 10/30/21 Status: Ordered cyclobenzaprine 10 mg oral tablet See Instructions, PRN, 1 tablet By Mouth 3 times a day as needed, # 20 tablet, Refills 0, Tot. Refills 0, Maintenance, for spasm, 11/08/21 10:23:00 EDT, Instructions Replace Required Details, Route to Pharmacy Electronically, [facility] #[id number]... Start Date: 11/08/21 Status: Ordered digoxin [...] 11 Refills, Maintenance, 06/25/21 12:00:00 EST, Capsule, [email or web address], Partial fill upon patient request if the prescription is for a schedule II opioid drug., madi Ren, 06/25/21 11:35:... Start Date: 06/25/21 Status: Ordered [...] 5 Refills, Maintenance, 11/18/21 13:49:00 EDT, Tablet, [email or web address], Partial fill upon patient request if the prescription is for a schedule II opioid drug., 165 cm, ... Start Date: 11/18/21 Status: Ordered lamotrigine 200 mg oral tablet 1 tablet = 200 mg, By Mouth, Daily at bedtime, 0 Refills, Maintenance, 02/19/18 15:03:43 EDT Start Date: 02/19/18 Status: Ordered loratadine 10 mg oral tablet See Instructions, TAKE 1 TABLET BY MOUTH ONCE A DAY, # 90 tablet, Refills 1, Instructions Replace Required Details, Route to Pharmacy Electronically, [facility], 165, cm, 06/25/21 11:35:00 EST, Height, [...] 03/05/22 16:36:00 EDT, 12/03/21 16:35:00 EDT, Gum, [facility] #[id number], Partial fill uponpatient request if the prescription is for a schedu... Start Date: 12/03/21 Stop Date: 03/05/22 Status: Ordered NuLYTELY with Flavor Packs oral powder for reconstitution 240 mL, By Mouth, Every 10 minutes, # 1 each, 0 Refills, Maintenance, 10/25/21 10:39:00 EDT, REC Powder, [facility], Partial fill upon patient request if the prescription is for a schedule IIopioid drug., 240 mL By Mouth Every 10 minutes, 165... Start Date: 10/25/21 Status: Ordered penicillin V potassium 250 mg oral tablet 1 tablet, By Mouth, 2 times a day, CELLULITIS PROPHYLAXIS., # 60 tablet, 6 Refills, [facility], 165, cm, 11/08/21 10:02:00 EDT, Height, 127, kg, 02/03/20 14:39:00 EDT, Dry Weight Start Date: 11/15/21 Status: Ordered rOPINIRole 0.5 mg oral tablet 1 tablet, By Mouth, 3 times a day, # 90 tablet, 5 Refills, 11/08/21 9:01:00 EDT, [email or web address], 165, cm, 11/04/21 8:42:00 EDT, Height, 127, kg, 02/03/20 14:39:00 EDT, Dry Weight Start Date: 11/08/21 Status: Ordered rosuvastatin 10 mg oral tablet See Instructions, TAKE 1 TABLET BY MOUTH DAILY, # 90 tablet, 1 Refills, Maintenance, 10/18/21 21:30:00 EDT, [email or web address], 165, cm, 09/04/21 14:01:00 EST, Height, 127, kg, 02/03/20 14:39:00 EDT,Dry Weight Start Date: 10/18/21 Status: Ordered warfarin 2.5 mg oral tablet See Instructions, Dosing Subject To Change per INR Result per MD, # 30 each, 6 Refills, Maintenance, 06/12/21 17:09:00 EST, Tablet, [email or web address], Dosing Subject To Change per INR Result per MD,165, cm, 05/21/21 10:54:00 EDT, Height, 127, kg, 07... 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
--- OUTSIDE RECORDS SUMMARY | 2024-01-02 21:24 | XMS_ITS | Continuity of Care Document ---
Author Organization [facility] Buck Nolberto Address [address] [place] [address]- Care Team Providers Care Document Review Specialist Name Role Phone Krishan GRIDER, Eulogio Molina Primary Care Physician [facility] Date[facility]): [facility]21 - 11/14/21 [facility] Robin Bolañosley Adult [address] [place] [address]- Allergies, Adverse Reactions, Alerts Substance Reaction Severity Status Adhesive Bandage Active Dust copd exac/sinus congestion A ctive Immunizations Given and Recorded Vaccine Date Status Refusal Reason SARS-CoV-2 mRNA ([id number]) vax 08/30/21 Recorded influenza virus vaccine, inactivated [...] B adult vaccine 06/14/02 Recorded 1Result Comment: [id number] 2Result Comment: [id number] 3Result Comment: [id number] 4Result Comment: [07/08/2017] [id number] 5Admin Note: [facility] 6Admin Note: [facility] [...] 8.5 Gm, 5 Refills, 05/29/21 17:13:00 EDT, [facility] #[id number], 17, INHALE 2 PUFFS BY MOUTH EVERY 4 HOURS NEEDED FOR WHEEZING OR SHORTNE... Start Date: 05/29/21 Status: Ordered calcipotriene 0.005% topical cream 1 application, Topically, 2 times a day, # 60 Gm, 11 Refills, Maintenance, 10/31/20 14:14:00 EDT, Cream, [facility] #[id number], Partial fill upon patient request if the prescription is for a schedule II opioid drug., 1 application Topically 2 ti... Start Date: 10/31/20 Status: Ordered chlorthalidone 25 mg oral tablet 1, tablet, By Mouth, Daily, # 90 tablet, Refills 3, Route to Pharmacy Electronically, [facility], 165, cm, 06/25/21 11:35:00 EST, Height, 127, kg, 02/03/20 14:39:00 EDT, Dry Weight Start Date: 07/09/21 Status: Ordered colchicine 0.6 mg oral tablet 0.6 mg, 1, tablet, By Mouth, Daily, # 30 tablet, Refills 11, Tot. Refills 11, Maintenance, :00:00 EDT, Route to Pharmacy Electronically, [facility], Partial fill upon patient request if the prescription is for a schedule II opioid dr... Start Date: 10/30/21 Status: Ordered cyclobenzaprine 10 mg oral tablet See Instructions, PRN, 1 tablet By Mouth 3 times a day as needed, # 20 tablet, Refills 0, Tot. Refills 0, Maintenance, for spasm, 11/08/21 10:23:00 EDT, Instructions Replace Required Details, Route to Pharmacy Electronically, [id number]... Start Date: 11/08/21 Status: Ordered Disposable [...] 11 Refills, Maintenance, 06/25/21 12:00:00 EST, Capsule, [facility], Partial fill upon patient request if [...] Gm, 3 Refills, Maintenance, 06/22/20 14:58:00 EST, [id number], 165, cm, 06/07/20 13:52:00 EST, Height, 127, [...] Replace Required Details, Route to Pharmacy Electronically, [facility], [place]... Start Date: 09/05/21 Status: Ordered HydrOXYzine PRn , rare use, 0 Refills, Maintenance, 04/30/20 15:04:00 EDT Start Date: 04/30/20 Status: Ordered ipratropium nasal 21 mcg/inh spray 2 sprays, Nares, Both, 2 times a day, # 30 mL, 5 Refills, Maintenance, 10/01/18 10:08:42 EST, [place], 2 sprays Nares, Both 2 times a [...] Replace Required Details, Route to Pharmacy Electronically, [facility], 165, cm, 06/25/21 11:35:00 EST, Height, [...] tablet, 6Refills, Maintenance, 05/21/21 11:19:00 EDT, Tablet, [facility], Partial fill upon patient request if the prescription is for a schedule II... Start Date: 05/21/21 Status: Ordered methenamine hippurate 1 gm oral tablet 1 tablet = 1 Gm, By Mouth, 2 times a day, # 60 tablet, 11 Refills, Maintenance, 07/05/21 14:00:00 EST, [facility], Partial fill upon patient request if the prescription is for a schedule II opioid drug., 165, cm, 02/28/21 14:22:00 EDT, Height,... Start Date: 07/05/21 Status: Ordered Mitigare 0.6 mg oral capsule 1 capsule, By Mouth, Daily, # 30 capsule, 11 Refills, Maintenance, 12/31/20 16:51:00 EDT, [facility] #[id number], 165, cm, 11/19/20 11:32:00 EDT, Height, 127, kg, 02/03/20 14:39:00 EDT, Dry Weight Start Date: 12/31/20 Status: Ordered NuLYTELY with Flavor Packs oral powder for reconstitution 240 mL, By Mouth, Every 10 minutes, # 1 each, 0 Refills, Maintenance, 10/25/21 10:39:00 EDT, REC Powder, [facility], Partial fill upon patient request if the prescription is for a schedule IIopioid drug., 240 mL By Mouth Every 10 minutes, 165... Start Date: 10/25/21 Status: Ordered penicillin V potassium 250 mg oral tablet 1 tablet, By Mouth, 2 times a day, CELLULITIS PROPHYLAXIS., # 60 tablet, 6 Refills, [facility], 165, cm, 11/08/21 10:02:00 EDT, Height, 127, kg, 02/03/20 14:39:00 EDT, Dry Weight Start Date: 11/14/21 Status: Ordered propranolol 20 mg oral tablet 20 mg, 1, tablet, By Mouth, 2 times a day, Stop metoprolol, # 60 tablet, Refills 5, Tot. Refills 5,Maintenance, 09/05/21 6:13:00 EST, Route to Pharmacy Electronically, [facility], Partial fill upon patient request if the prescription is for a... Start Date: 09/05/21 Status: Ordered risperiDONE 1 mg oral tablet take 1 tablet by mouth twice a day Start Date: 05/23/19 Status: Ordered rOPINIRole 0.5 mg oral tablet 1 tablet, By Mouth, 3 times a day, # 90 tablet, 5 Refills, 11/08/21 9:01:00 EDT, [facility], 165, cm, 11/04/21 8:42:00 EDT, Height, 127, kg, 02/03/20 14:39:00 EDT, Dry Weight Start Date: 11/08/21 Status: Ordered rosuvastatin 10 mg oral tablet See Instructions, TAKE 1 TABLET BY MOUTH DAILY, # 90 tablet, 1 Refills, Maintenance, 10/18/21 21:30:00 EDT, [facility], 165, cm, 09/04/21 14:01:00 EST, Height, 127, kg, 02/03/20 14:39:00 EDT,Dry Weight Start Date: 10/18/21 Status: Ordered warfarin 2.5 mg oral tablet See Instructions, Dosing Subject To Change per INR Result per MD, # 30 each, 6 Refills, Maintenance, 06/12/21 17:09:00 EST, Tablet, [facility], Dosing Subject To Change per INR Result per MD,165, cm, 05/21/21 10:54:00 EDT, Height, 127, kg, 07... Start Date: 06/12/21 Status: Ordered warfarin 5 mg oral tablet See Instructions, Dosing Subject To Change Per INR Result per MD, # 30 each, 6 Refills, Maintenance, 06/12/21 17:05:00 EST, Tablet, [facility], PLEASE GIVE BOTH 5MG TABLETS AND [...]
--- OUTSIDE RECORDS SUMMARY | 2024-01-02 21:24 | XMS_ITS | Continuity of Care Document ---
Author Organization [facility] Buck Nolberto lt Address [address] [place] [address]- Care Team Providers Care Body Shop Technician Name Role Phone Fuentes Garcia MD Primary Care Physician [facility] Date[facility]s): 08/01/21 - 08/31/21 [facility] Robin Bolañosley Adult [address] [place] [address]- Attending Physician: Admtr, Ar8 Admitting Physician: Admtr, [...] B adult vaccine 06/14/02 Recorded 1Result Comment: [id number] 2Result Comment: [id number] 3Result Comment: [id number] 4Result Comment: [07/08/2017] [id number] 5Admin Note: [facility] 6Admin Note: [facility] [...] 8.5 Gm, 5 Refills, 05/29/21 17:13:00 EDT, [facility] #[id number], 17, INHALE 2 PUFFS BY MOUTH EVERY [...] 11 Refills, Maintenance, 10/31/20 14:14:00 EDT, Cream, [facility] #[id number], Partial fill upon patient request if the [...] tablet, Refills 3, Route to Pharmacy Electronically, [facility], 165, cm, 06/25/21 11:35:00 EST, Height, [...] PMR, history of smoking fax to : [phone], 04... Start Date: 10/26/20 Status: Ordered Disposable [...] 11 Refills, Maintenance, 06/25/21 12:00:00 EST, Capsule, [facility], Partial fill upon patient request if [...] Gm, 3 Refills, Maintenance, 06/22/20 14:58:00 EST, [facility] #[id number], 165, cm, 06/07/20 13:52:00 EST, Height, 127, [...] Refills, Maintenance, 05/24/21 16:13:00 EDT, REC Powder, [facility] #[id number], Partial fill upon patient request if the [...] mL, 5 Refills, Maintenance, 10/01/18 10:08:42 EST, [place], 2 sprays Nares, Both 2 times a [...] Replace Required Details, Route to Pharmacy Electronically, [facility], 165, cm, 06/25/21 11:35:00 EST, [...] tablet, 6Refills, Maintenance, 05/21/21 11:19:00 EDT, Tablet, [facility], Partial fill upon patient request if the prescription is for a schedule II... Start Date: 05/21/21 Status: Ordered methenamine hippurate 1 gm oral tablet 1 tablet = 1 Gm, By Mouth, 2 times a day, # 60 tablet, 11 Refills, Maintenance, 07/05/21 14:00:00 EST, [facility], Partial fill upon patient request if the prescription is for a schedule II opioid drug., 165, cm, 02/28/21 14:22:00 EDT, Height,... Start Date: 07/05/21 Status: Ordered Metoprolol Tartrate 25 mg oral tablet 1 tablet, By Mouth, 2 times a day, # 60 tablet, 3 Refills, [facility], 165, cm, 06/25/21 11:35:00 EST, Height, 127, kg, 02/03/20 14:39:00 EDT, Dry Weight Start Date: 07/09/21 Status: Ordered Mitigare 0.6 mg oral capsule 1 capsule, By Mouth, Daily, # 30 capsule, 11 Refills, Maintenance, 12/31/20 16:51:00 EDT, [facility] #[id number], 165, cm, 11/19/20 11:32:00 EDT, Height, 127, [...] 0 Refills, Maintenance, 04/11/21 9:00:00 EDT, Patch, [facility], Partial fill upon patient request, 165, cm, 02/28/21 14:22:00 EDT, Height, 127, kg, 02/03/20 14:39:00 EDT, Dry Weight Start Date: 04/11/21 Stop Date: 05/23/21 Status: Ordered NuLYTELY with Flavor Packs oral powder for reconstitution See Instructions, Drink 240mL every 15-20 minutes until first half is gone. Repeat 6 hours prior toprocedure., # 4,000 mL, 0 Refills, Maintenance, 06/28/20 17:09:00 Kluster, [facility] #[id number],Partial fill upon patient request if the prescript... [...] tablet, 11 Refills, Maintenance, 10/30/20 12:09:00 EDT, [facility] #[id number], 165, cm, 10/19/20 8:59:00 EDT, Height, 127, kg, 02/03/20 14:39:00 EDT, Dry Weight Start Date: 10/30/20 Status: Ordered predniSONE 5 mg oral tablet 1 tablet = 5 mg, By Mouth, Daily, # 30 tablet, 0 Refills, Maintenance, 01/11/21 14:20:00 EDT, Tablet, [facility] #[id number], Partial fill upon patient request if the prescription is for a schedule II opioid drug., 165, cm, 01/11/21 14:05:00 EDT,... Start Date: 01/11/21 Status: Ordered propranolol 20 mg oral tablet 20 mg, 1, tablet, By Mouth, 2 times a day, # 60 tablet, Refills 5, Tot. Refills 5, Maintenance, 06/25/21 11:57:00 EST, Route to Pharmacy Electronically, [facility], Partial fill upon patient request [...] a day, # 90 tablet, 3 Refills, [facility], 165, cm, 06/25/21 11:35:00 EST, Height, 127, kg, 02/03/20 14:39:00 EDT, Dry Weight Start Date: 07/09/21 Status: Ordered rosuvastatin 10 mg oral tablet 1 tablet = 10 mg, By Mouth, Daily, # 90 tablet, 1 Refills, Maintenance, 05/20/21 15:53:00 EDT, Tablet, [facility], d/c rx for capsules, 165, cm, 02/28/21 14:22:00 EDT, Height, 127, kg, 02/03/20 14:39:00 EDT, Dry Weight Start Date: 05/20/21 Status: Ordered Trulicity Pen 1.5 mg/0.5 mL subcutaneous solution 0.5 mL = 1.5 mg, Subcutaneous Injection, Every week, take on same day every week, rotate injection sites E11.9, # 2 mL, 6 Refills, Maintenance, 07/23/21 10:03:00 EST, Solution, [facility] #[id number], Partial fill upon patient request if the p... Start Date: 07/23/21 Status: Ordered warfarin 2.5 mg oral tablet See Instructions, Dosing Subject To Change per INR Result per MD, # 30 each, 6 Refills, Maintenance, 06/12/21 17:09:00 EST, Tablet, [facility], Dosing Subject To Change per INR Result per MD,165, cm, 05/21/21 10:54:00 EDT, Height, 127, kg, 07... 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
--- OUTSIDE RECORDS SUMMARY | 2024-01-02 21:24 | XMS_ITS | Continuity of Care Document ---
Author Organization [facility] Buck Nolberto Address [address] [place] [address]- Care Team Providers Care Automatic Presser Name Role Phone Krishan GRIDER, Eulogio Molina Primary Care Physician [facility] Date[facility]s): 12/05/21 - 01/04/22 [facility] Robin Bolañosley Adult [address] [place] [address]- Allergies, Adverse Reactions, Alerts Substance Reaction Severity Status Adhesive Bandage Active Dust copd exac/sinus congestion A ctive Immunizations Given and Recorded Vaccine Date Status Refusal Reason SARS-CoV-2 mRNA (bbgaiwo-[id number]-[id number]) vax 08/30/21 Recorded influenza virus vaccine, inactivated [...] B adult vaccine 06/14/02 Recorded 1Result Comment: [id number] 2Result Comment: [id number] 3Result Comment: [id number] 4Result Comment: [07/08/2017] [id number] 5Admin Note: [facility] 6Admin Note: [facility] [...] 8.5 Gm, 5 Refills, 05/29/21 17:13:00 EDT, [facility] #[id number], 17, INHALE 2 PUFFS BY MOUTH EVERY 4 HOURS NEEDED FOR WHEEZING OR SHORTNE... Start Date: 05/29/21 Status: Ordered calcipotriene 0.005% topical cream 1 application, Topically, 2 times a day, # 60 Gm, 11 Refills, Maintenance, 11/15/21 11:54:00 EDT, Cream, [facility], Partial fill upon patient request if the prescription is for a schedule IIopioid drug., 1 application Topically 2 times a day... Start Date: 11/15/21 Status: Ordered colchicine 0.6 mg oral tablet 0.6 mg, 1, tablet, By Mouth, Daily, # 30 tablet, Refills 11, Tot. Refills 11, Maintenance, :00:00 EDT, Route to Pharmacy Electronically, [facility], Partial fill upon patient request if the prescription is for a schedule II opioid dr... Start Date: 10/30/21 Status: Ordered digoxin 0.125 mg oral tablet 125 mcg, 1, tablet, By Mouth, Daily, # 90 tablet, Refills 1, Tot. Refills 1, Maintenance, 12/11/21 13:41:00 EDT, Route to Pharmacy Electronically, [facility], Partial fill upon patient request if the prescription is for a schedule II opioid dr... Start Date: 12/11/21 Status: Ordered duloxetine 20 mg oral enteric coated capsule 2 capsule = 40 mg, By Mouth, Daily at bedtime, # 60 capsule, 11 Refills, Maintenance, 06/25/21 12:00:00 EST, Capsule, [facility], Partial fill upon patient request [...] Replace Required Details, Route to Pharmacy Electronically, [facility], 165, cm, 06/25/21 11:35:00 EST, Height, 127, kg, 02/03/20 14:39:00 EDT, Dry Weight Start Date: 08/05/21 Status: Ordered metoprolol 100 mg oral tablet, extended release 100 mg, 1, tablet, By Mouth, Daily, # 90 tablet, Refills 1, Tot. Refills 1, Maintenance, 12/11/21 13:41:00 EDT, Route to Pharmacy Electronically, [facility], Partial fill upon patient requestif the prescription is for a schedule II opioid keanu... Start Date: 12/11/21 Status: Ordered nicotine 4 mg oral transmucosal gum 1 each = 4 mg, Chew, Every 2 hours, PRN as needed for smoking cessation, # 160 each, 2 Refills, Acute 03/05/22 16:36:00 EDT, 12/03/21 16:35:00 EDT, [facility] #[id number], Partial fill uponpatient request if the prescription is for a schedu... Start Date: 12/03/21 Stop Date: 03/05/22 Status: Ordered NuLYTELY with Flavor Packs oral powder for reconstitution 240 mL, By Mouth, Every 10 minutes, # 1 each, 0 Refills, Maintenance, 10/25/21 10:39:00 EDT, REC Powder, [facility], Partial fill upon patient request if the prescription is for a schedule IIopioid drug., 240 mL By Mouth Every 10 minutes, 165... Start Date: 10/25/21 Status: Ordered penicillin V potassium 250 mg oral tablet 1 tablet, By Mouth, 2 times a day, CELLULITIS PROPHYLAXIS., # 60 tablet, 6 Refills, [facility], 165, cm, 11/08/21 10:02:00 EDT, Height, 127, kg, 02/03/20 14:39:00 EDT, Dry Weight Start Date: 11/15/21 Status: Ordered rOPINIRole 0.5 mg oral tablet 1 tablet, By Mouth, 3 times a day, # 90 tablet, 5 Refills, 11/08/21 9:01:00 EDT, [facility], 165, cm, 11/04/21 8:42:00 EDT, Height, 127, kg, 02/03/20 14:39:00 EDT, Dry Weight Start Date: 11/08/21 Status: Ordered rosuvastatin 10 mg oral tablet See Instructions, TAKE 1 TABLET BY MOUTH DAILY, # 90 tablet, 1 Refills, Maintenance, 10/18/21 21:30:00 EDT, [facility], 165, cm, 09/04/21 14:01:00 EST, [...] 6 Refills, Maintenance, 12/13/21 13:47:00 EDT, Tablet, [facility], Dosing Subject To Change per INR Result per MD,165, cm, 12/06/21 14:01:00 EDT, Height, 102.1, kg,... Start Date: 12/13/21 Status: Ordered warfarin 5 mg oral tablet See Instructions, Dosing Subject To Change Per INR Result per MD, # 30 each, 6 Refills, Maintenance, 12/13/21 14:01:00 EDT, Tablet, [facility], PLEASE GIVE BOTH 5MG TABLETS [...]
--- OUTSIDE RECORDS SUMMARY | 2024-01-02 21:24 | XMS_ITS | Continuity of Care Document ---
Author Organization [facility] Buck Nolberto lt Address [address] [place] [id number]- Care Team Providers Care Oncology Coordinator Name Role Phone Krishan GRIDER, Eulogio Molina Primary Care Physician Encounter [facility] Date(s): 01/03/22 - 02/02/22 [facility] Adult [address] [place] [address]- Allergies, Adverse Reactions, Alerts Substance Reaction Severity Status Adhesive Bandage Active Dust copd exac/sinus congestion A ctive Immunizations Given and Recorded Vaccine Date Status Refusal Reason SARS-CoV-2 mRNA (fvlhjtb-[id number]) vax 08/30/21 Recorded influenza virus vaccine, inactivated [...] B adult vaccine 06/14/02 Recorded 1Result Comment: [id number] 2Result Comment: [id number] 3Result Comment: [id number] 4Result Comment: [07/08/2017] [id number] 5Admin Note: [facility] 6Admin Note: [facility] [...] 8.5 Gm, 5 Refills, 05/29/21 17:13:00 EDT, [facility] #[id number], 17, INHALE 2 PUFFS BY MOUTH EVERY [...] 0 Refills, Maintenance, 01/11/22 7:25:00 EDT, Capsule, [facility], Partial fill upon patient [...] to Pharmacy Electronically, [facility], 165, cm, 01/06/22 14:35:00 EDT, Height, 102.1, kg, ... Start Date: 01/09/22 Status: Ordered colchicine 0.6 mg oral tablet 0.6 mg, 1, tablet, By Mouth, Daily, # 30 tablet, Refills 11, Tot. Refills 11, Maintenance, :00:00 EDT, Route to Pharmacy Electronically, [facility], Partial fill upon [...] 01/11/22 7:25:00 EDT, Route to Pharmacy Electronically, [facility], Partial fill upon patient request if the [...] Required Details, [facility], 165, cm, 06/25/21 11:35:00 EST, Height, [...] 12/11/21 13:41:00 EDT, Route to Pharmacy Electronically, [facility], Partial fill upon patient requestif the [...] 03/05/22 16:36:00 EDT, 12/03/21 16:35:00 EDT, Gum, [facility] #[id number], Partial fill uponpatient request if the prescription [...] CELLULITIS PROPHYLAXIS., # 60 tablet, 6 Refills, [facility], 165, cm, 11/08/21 10:02:00 EDT, Height, 127, kg, 02/03/20 14:39:00 EDT, Dry Weight Start Date: 11/15/21 Status: Ordered rOPINIRole 0.5 mg oral tablet 1 tablet, By Mouth, 3 times a day, # 90 tablet, 5 Refills, 11/08/21 9:01:00 EDT, [facility], [facility], cm, 11/04/21 8:42:00 EDT, Height, 127, kg, 02/03/20 14:39:00 EDT, Dry Weight Start Date: 11/08/21 Status: Ordered rosuvastatin 10 mg oral tablet See Instructions, TAKE 1 TABLET BY MOUTH DAILY, # 90 tablet, 1 Refills, Maintenance, 10/18/21 21:30:00 EDT, [facility], 165, cm, 09/04/21 14:01:00 EST, [...] 0 Refills, Maintenance, 01/11/22 7:24:00 EDT, Tablet, [facility], Partial fill upon patient requestif the [...]
--- OUTSIDE RECORDS SUMMARY | 2024-01-02 21:24 | XMS_ITS | Continuity of Care Document ---
Author Organization [facility] ter Address [address] [place] [id number]- Care Team Providers Care Order Processing Manager Name Role Phone Eulogio Nickerson MD Primary Care Physician En[place] [facility] [place] Date(s): 07/17/22 - 08/16/[address] [address] Attending Physician: Not on Staff, Attending MD Admitting Physician: Not on Staff, Admitting MD Referring Physician: Not on Staff, Referring MD Allergies, Adverse Reactions, Alerts Substance Reaction [...] vaccine, inactivated 05/10/07 Jarrett rded SARS-CoV-2 mRNA ([id number]) vax 08/30/21 Recorded SARS-CoV-2 (COVID-19) mRNA BNT-162b2 vac 01/02/21 Recorded SARS-CoV-2 (COVID-19) mRNA BNT-162b2 vac 12/02/20 Recorded Fluvirin (oldterm) 8 03/22/15 Given Fluzone Preservative-Free (oldterm) 9 03/12/12 Giv en pneumococcal 23-valent vaccine 10/08/11 Given tetanus/diphtheria/pertussis, acel(Tdap) 09/08/11 Given tetanus/diphtheria/pertussis, acel(Tdap) 12/17/06 Recorded influ virus vac, H1N1, inactive(oldterm) 10 05/08/11 Given hepatitis B adult vaccine 06/14/02 Recorded 1Result Comment: [id number] 2Result Comment: [id number] 3Result Comment: [id number] 4Result Comment: [id number] 5Result Comment: [07/08/2017] [id number] 6Admin Note: [facility] 7Admin Note: [facility] [...] Gm, 4 Refills, Maintenance, 04/28/22 13:11:00 EDT, [facility], 17, INHALE 2 PUFFS BY [...] Maintenance, 227:00:00 EDT, Route to Pharmacy Electronically, [facility], Partial fill upon patient request if the prescription is for a schedule II opioid dr... Start Date: 10/30/21 Status: Ordered docusate sodium 100 mg oral capsule 100 mg, 1, capsule, By Mouth, 2 times a day, hold for loose stool, # 60 capsule, Refills 0, Tot. Refills 0, Maintenance, 01/11/22 7:25:00 EDT, Route to Pharmacy Electronically, [facility], Partial fill upon patient request if the prescri... Start Date: 01/11/22 Stop Date: 02/10/22 Status: Ordered duloxetine 20 mg oral enteric coated capsule 2 capsule = 40 mg, By Mouth, Daily at bedtime, # 60 capsule, 11 Refills, Maintenance, 06/25/21 12:00:00 EST, Capsule, [facility], Partial fill upon patient [...] 07/17/22 17:07:00 EST, Route to Pharmacy Electronically, [facility], 160, cm, 07/17/22 12:03:00 [...] 5 Refills, Maintenance, 07/29/22 6:50:00 EST, Tablet, [facility], Partial fill upon patient [...] tablet, 5 Refills, Maintenance, 07/24/22 23:41:00 EST, [facility], 160, cm, 07/18/22 11:39:00 EST, Height, [...] Gm, 5 Refills, Maintenance, 07/17/22 11:09:00 EST, [facility], 160, cm, 07/17/22 8:49:00 EST, Height, 98.8, kg, 07/17/22 8:58:00 EST, Dry Weight Start Date: 07/17/22 Status: Ordered Symbicort 80mcg/4.5mcg Inhaler See Instructions, INHALE 2 PUFFS BY MOUTH TWICE A DAY RINSE MOUTH AND THROAT AFTER USE, # 10.2 Gm, Refills 5, Maintenance, 07/30/22 21:16:00 EST, Instructions Replace Required Details, Route to Pharmacy Electronically, [id number], [facility] Start Date: 07/30/22 Status: Ordered warfarin 1 mg oral tablet See Instructions, Take 1-10 tabs daily as directed by NEOS., # 150 tablet, 0 Refills, Maintenance, 07/18/22 8:55:00 EST, Tablet, [facility], Partial fill upon patient request [...] Team Personnel Name: Sandra Wills NP Position: [facility] PCO Associate Professional Member Role: Primary Care Nurse Address: Address: [address] [place] [address] [place] [address]- Name: Marley Alejo RN Position: [facility] RN Member Role: Primary Care Nurse Name: Eulogio Nickerson MD Position: [facility] Primary Care Physician Member Role: PCP Address: Address: [address] [place] [address] [place] [address]- [place] Name: Alma Delia Fonseca PharmD Position: [facility] Associate Professional Member Role: Lifetime Consulting Provider Address: Address: [address] [place] [address] [place] [address]- Name: Yolis Mattson RN Position: [facility] RN Member Role: Primary Care Nurse Name: Priscila Garzon RN Position: [facility] RN Member Role: Primary Care Nurse Name: Renea Mart RN Position: [facility] RN Member Role: Primary Care Nurse Care Team Related Persons Name: FAUZIA JANSEN Address: home [address] [place] [address] Name: AURELIA SHETH Address: [address] [place] [address] Name: BRE OSORIO Address: [address] [place] [address]
--- OUTSIDE RECORDS SUMMARY | 2024-01-02 21:24 | XMS_ITS | Continuity of Care Document ---
Author Organization [facility] Nolberto Address [address] [place] [address]- Care Team Providers Care Respiratory Therapy Manager Name Role Phone Eulogio Nickerson MD Primary Care Physician Encounter [facility] [place] Date(s): 11/18/21 - 11/25/21 [facility] Adult [address] [place] [address]- Attending Physician: Eulogio Nickerson MD Allergies, Adverse Reactions, Alerts Substance Reaction Severity Status Adhesive Bandage Active Dust copd exac/sinus congestion A ctive Immunizations Given and Recorded Vaccine Date Status Refusal Reason SARS-CoV-2 mRNA ([id number]) vax 08/30/21 Recorded influenza virus vaccine, inactivated [...] B adult vaccine 06/14/02 Recorded 1Result Comment: [id number] 2Result Comment: [id number] 3Result Comment: [id number] 4Result Comment: [07/08/2017] [id number] 5Admin Note: [facility] 6Admin Note: [facility] [...] 8.5 Gm, 5 Refills, 05/29/21 17:13:00 EDT, [id number], 17, INHALE 2 PUFFS BY MOUTH EVERY 4 HOURS NEEDED FOR WHEEZING OR SHORTNE... Start Date: 05/29/21 Status: Ordered calcipotriene 0.005% topical cream 1 application, Topically, 2 times a day, # 60 Gm, 11 Refills, Maintenance, 11/15/21 11:54:00 EDT, Cream, [facility], Partial fill upon patient request if the prescription is for a schedule IIopioid drug., 1 application Topically 2 times a day... Start Date: 11/15/21 Status: Ordered colchicine 0.6 mg oral tablet 0.6 mg, 1, tablet, By Mouth, Daily, # 30 tablet, Refills 11, Tot. Refills 11, Maintenance, 227:00:00 EDT, Route to Pharmacy Electronically, [email or web address], Partial fill upon patient request if the prescription is for a schedule II opioid drKatie. Start Date: 10/30/21 Status: Ordered cyclobenzaprine 10 mg oral tablet See Instructions, PRN, 1 tablet By Mouth 3 times a day as needed, # 20 tablet, Refills 0, Tot. Refills 0, Maintenance, for spasm, 11/08/21 10:23:00 EDT, Instructions Replace Required Details, Route to Pharmacy Electronically, [id number]... Start Date: 11/08/21 Status: Ordered duloxetine 20 mg oral enteric coated capsule 2 capsule = 40 mg, By Mouth, Daily at bedtime, # 60 capsule, 11 Refills, Maintenance, 06/25/21 12:00:00 EST, Capsule, [email or web address], Partial fill upon patient request if [...] 5 Refills, Maintenance, 11/18/21 13:49:00 EDT, Tablet, [email or web address], Partial fill upon patient request if [...] Replace Required Details, Route to Pharmacy Electronically, [email or web address], 165, cm, 06/25/21 11:35:00 EST, Height, 127, kg, 02/03/20 14:39:00 EDT, Dry Weight Start Date: 08/05/21 Status: Ordered metFORMIN 500 mg oral tablet See Instructions, TAKE 2 TABLET BY MOUTH TWICE A DAY, # 120 tablet, 0 Refills, [facility], 165, cm, 11/18/21 13:18:00 EDT, Height, 127, kg, 02/03/20 14:39:00 EDT, Dry Weight Start Date: 11/21/21 Status: Ordered methenamine hippurate 1 gm oral tablet 1 tablet = 1 Gm, By Mouth, 2 times a day, # 60 tablet, 11 Refills, Maintenance, 07/05/21 14:00:00 EST, [facility], Partial fill upon patient request if the prescription is for a schedule II opioid drug., 165, cm, 02/28/21 14:22:00 EDT, Height,... Start Date: 07/05/21 Status: Ordered Metoprolol Tartrate 25 mg oral tablet 1 tablet, By Mouth, 2 times a day, # 60 tablet, 2 Refills, Maintenance, 11/18/21 13:47:00 EDT, [facility], 165, cm, 11/18/21 13:18:00 EDT, Height, 127, kg, 02/03/20 14:39:00 EDT, Dry Weight Start Date: 11/18/21 Status: Ordered NuLYTELY with Flavor Packs oral powder for reconstitution 240 mL, By Mouth, Every 10 minutes, # 1 each, 0 Refills, Maintenance, 10/25/21 10:39:00 EDT, REC Powder, [facility], Partial fill upon patient request if the prescription is for a schedule IIopioid drug., 240 mL By Mouth Every 10 minutes, 165... Start Date: 10/25/21 Status: Ordered penicillin V potassium 250 mg oral tablet 1 tablet, By Mouth, 2 times a day, CELLULITIS PROPHYLAXIS., # 60 tablet, 6 Refills, [facility], 165, cm, 11/08/21 10:02:00 EDT, Height, 127, kg, 02/03/20 14:39:00 EDT, Dry Weight Start Date: 11/15/21 Status: Ordered rOPINIRole 0.5 mg oral tablet 1 tablet, By Mouth, 3 times a day, # 90 tablet, 5 Refills, 11/08/21 9:01:00 EDT, [email or web address], 165, cm, 11/04/21 8:42:00 EDT, Height, 127, kg, 02/03/20 14:39:00 EDT, Dry Weight Start Date: 11/08/21 Status: Ordered rosuvastatin 10 mg oral tablet See Instructions, TAKE 1 TABLET BY MOUTH DAILY, # 90 tablet, 1 Refills, Maintenance, 10/18/21 21:30:00 EDT, [email or web address], 165, cm, 09/04/21 14:01:00 EST, Height, 127, kg, 02/03/20 14:39:00 EDT,Dry Weight Start Date: 10/18/21 Status: Ordered warfarin 2.5 mg oral tablet See Instructions, Dosing Subject To Change per INR Result per MD, # 30 each, 6 Refills, Maintenance, 06/12/21 17:09:00 EST, Tablet, [email or web address], Dosing Subject To Change per INR Result per MD,165, cm, 05/21/21 10:54:00 EDT, Height, 127, kg, 07... Start Date: 06/12/21 Status: Ordered warfarin 5 mg oral tablet See Instructions, Dosing Subject To Change Per INR Result per MD, # 30 each, 6 Refills, Maintenance, 06/12/21 17:05:00 EST, Tablet, [email or web address], PLEASE GIVE BOTH 5MG TABLETS AND [...] oldest [Reference Range]: 1 Height 165 cm (11/18/21 1:18 PM) Weight 101.3 kg (11/18/21 1:18 PM) Oxygen Saturation [94-100 %] 98 % (11/18/21 1:18 PM) Pulse Rate [55-90 bpm] 122 bpm *H* (11/18/21 1:18 PM) Body Mass Index [18.5-24.99] 37.21 *>HHI* (11/18/21 1:18 PM) Blood Pressure [90-138/55-84 mm Hg] 121/ 76mm Hg (11/18/21 1:18 PM) Temperature [96.8-100.4 DegF] 97.9 DegF (11/18/21 1:18 PM) Mode of Delivery (Oxygen) Room air (11/18/21 1:18 PM) Blood pressure sites Arm, left (11/18/21 1:18 PM) Temperature Route Oral (11/18/21 1:18 PM) Weight Obtained Via Standing scale (11/18/21 1:18 PM) Social History Social History Type Response Smoking Status 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
--- OUTSIDE RECORDS SUMMARY | 2024-01-02 21:24 | XMS_ITS | Continuity of Care Document ---
Author Organization [facility] Nolberto Address [address] [place] [address]- Care Team Providers Care Head Bellhop Captain Name Role Phone Krishan GRIDER, Eulogio Molina Primary Care Physician Encounter [facility] [place] Date(s): 05/26/22 - 06/25/22 [facility] Adult [address] [place] [address]- Allergies, Adverse Reactions, Alerts Substance Reaction Severity [...] vaccine, inactivated 05/10/07 Jarrett rded SARS-CoV-2 mRNA ([id number]) vax 08/30/21 Recorded SARS-CoV-2 (COVID-19) mRNA BNT-162b2 vac 01/02/21 Recorded SARS-CoV-2 (COVID-19) mRNA BNT-162b2 vac 12/02/20 Recorded Fluvirin (oldterm) 8 03/22/15 Given Fluzone Preservative-Free (oldterm) 9 03/12/12 Giv en pneumococcal 23-valent vaccine 10/08/11 Given tetanus/diphtheria/pertussis, acel(Tdap) 09/08/11 Given tetanus/diphtheria/pertussis, acel(Tdap) 12/17/06 Recorded influ virus vac, H1N1, inactive(oldterm) 10 05/08/11 Given hepatitis B adult vaccine 06/14/02 Recorded 1Result Comment: [id number] 2Result Comment: [id number] 3Result Comment: [id number] 4Result Comment: [id number] 5Result Comment: [07/08/2017] [id number] 6Admin Note: [facility] 7Admin Note: [facility] [...] Gm, 4 Refills, Maintenance, 04/28/22 13:11:00 EDT, [facility], 17, INHALE 2 PUFFS BY MOUTH EVERY FOUR HOURS NEEDED FOR WHEEZING... Start Date: 04/28/22 Status: Ordered cloNIDine 0.1 mg oral tablet See Instructions, TAKE 1 TABLET BY MOUTH TWICE A DAY NEEDED FOR FOR ANXIETY (VIAL), # 60 tablet,Refills 1, Maintenance, 04/28/22 13:11:00 EDT, Instructions Replace Required Details, Route to Pharmacy Electronically, [facility], 159, cm, 06... Start Date: 04/28/22 Status: Ordered colchicine 0.6 mg oral tablet 0.6 mg, 1, tablet, By Mouth, Daily, # 30 tablet, Refills 11, Tot. Refills 11, Maintenance, 227:00:00 EDT, Route to Pharmacy Electronically, [facility], Partial fill upon patient request if the prescription is for a schedule II opioid dr... Start Date: 10/30/21 Status: Ordered digoxin 0.125 mg oral tablet 1, tablet, By Mouth, Daily, # 90 tablet, Refills 0, Maintenance, 05/29/22 6:33:00 EDT, Route to Pharmacy Electronically, [facility], 159, cm, 05/05/22 11:32:00 EDT, Height, 98.8, kg, 229:12:00 EDT, Dry Weight Start Date: 05/29/22 Status: Ordered docusate sodium 100 mg oral capsule 100 mg, 1, capsule, By Mouth, 2 times a day, hold for loose stool, # 60 capsule, Refills 0, Tot. Refills 0, Maintenance, 01/11/22 7:25:00 EDT, Route to Pharmacy Electronically, [facility], Partial fill upon patient request if the prescri... Start Date: 01/11/22 Stop Date: 02/10/22 Status: Ordered duloxetine 20 mg oral enteric coated capsule 2 capsule = 40 mg, By Mouth, Daily at bedtime, # 60 capsule, 11 Refills, Maintenance, 06/25/21 12:00:00 EST, Capsule, [facility], Partial fill upon patient [...] Required Details, Route to Pharmacy Electronically, [facility], 165, cm, 06/25/21 11:35:00 EST, Height, 127, kg, 02/03/20 14:39:00 EDT, Dry Weight Start Date: 08/05/21 Status: Ordered penicillin V potassium 250 mg oral tablet 1 tablet, By Mouth, 2 times a day, CELLULITIS PROPHYLAXIS., # 60 tablet, 5 Refills, Maintenance, 05/29/22 6:19:00 EDT, [facility], 159, cm, 05/05/22 11:32:00 EDT, Height, 98.8, kg, 01/10/22 9:12:00 EDT, Dry Weight Start Date: 05/29/22 Status: Ordered rOPINIRole 0.5 mg oral tablet 1 tablet, By Mouth, 3 times a day, # 90 tablet, 5 Refills, 03/07/22 6:14:00 EDT, [facility], 159, cm, 01/11/22 15:15:00 EDT, Height, 98.8, kg, 01/10/22 9:12:00 EDT, Dry Weight Start Date: 03/07/22 Status: Ordered rosuvastatin 10 mg oral tablet See Instructions, TAKE 1 TABLET BY MOUTH DAILY, # 90 tablet, 1 Refills, Maintenance, 04/04/22 11:35:00 EDT, [facility], 159, cm, 01/11/22 15:15:00 EDT, Height, 98.8, kg, 01/10/22 9:12:00 EDT,Dry Weight Start Date: 04/04/22 Status: Ordered Symbicort 80mcg/4.5mcg Inhaler See Instructions, INHALE 2 PUFFS BY MOUTH TWICE A DAY RINSE MOUTH AND THROAT AFTER USE, # 10.2 Gm, Refills 5, Instructions Replace Required Details, Route to Pharmacy Electronically, [id number], [facility], 159, cm, 01/11/22 15:15:00 EDT... 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 Active [...] Personnel Name: Sandra Wills NP Position: [facility] PCO Associate Professional Member Role: Primary Care Nurse Address: Address: [address] [place] [address] [place] [address]- [place] Name: Marley Alejo RN Position: [facility] ED RN W/OE and Tasks Member Role: Primary Care Nurse Name: Eulogio Nickerson MD Position: [facility] Primary Care Physician Member Role: PCP Address: Address: [address] [place] [address]- [place] Name: Alma Delia Fonseca PharmD Position: [facility] Associate Professional Member Role: Lifetime Consulting Provider Address: Address: [address] [place] [address] [place] [address]- [place] Name: Yolis Mattson RN Position: [facility] RN Member Role: Primary Care Nurse Name: Priscila Garzon RN Position: [facility] RN Member Role: Primary Care Nurse Care Team Related Persons Name: FAUZIA JANSEN Address: home [address] [place] [address] Name: ANDRA JANSEN Address: home [address] [place] [address] Name: AURELIA SHETH Address: home [address] [place] [address] Name: BRE OSORIO Address: home [address] [place] [address]
--- OUTSIDE RECORDS SUMMARY | 2024-01-02 21:24 | XMS_ITS | Continuity of Care Document ---
Author Organization [facility] Nolberto Address [address] [place] [address]- Care Team Providers Care Design/Animation Instructor Name Role Phone Radha GRIDER, Fuentes Kenny Primary Care Physician Encounter [facility] Date(s): 12/05/20 - 01/04/21 [facility] Adult [address] [place] [address]- Allergies, Adverse Reactions, Alerts Substance Reaction Severity [...] H1N1, inactive(oldterm) 8 05/08/11 Given 1Result Comment: [id number] 2Result Comment: [id number] 3Result Comment: [07/08/2017] 40010-558-50 4Admin Note: [facility] 5Admin Note: [facility] [...] 11 Refills, Maintenance, 10/31/20 14:14:00 EDT, Cream, [facility][id number], Partial fill upon patient request if the [...] 11/27/20 10:09:00 EDT, Route to Pharmacy Electronically, [facility] #[id number], please schedule appt for further refills, 165, cm, 11/19/20 11:32:00 EDT, Hei... Start Date: 11/27/20 Status: Ordered Claritin 10 mg oral tablet 10 mg, 1, tablet, By Mouth, Daily, for 90 days, # 90 tablet, Refills 3, Tot. Refills 3, Acute 07/28/21 15:22:00 EST, 08/02/20 15:22:00 EST, Route to Pharmacy Electronically, [facility] #[id number], 165, cm, 07/31/20 14:32:00 EST, Height, 127, [...] PMR, history of smoking fax to : [phone], 04... Start Date: 10/26/20 Status: Ordered Disposable [...] Gm, 3 Refills, Maintenance, 06/22/20 14:58:00 EST, [facility] #[id number], 165, cm, 06/07/20 13:52:00 EST, Height, 127, [...] mL, 5 Refills, Maintenance, 10/01/18 10:08:42 EST, [place], 2 sprays Nares, Both 2 times a [...] 08/02/20 16:13:00 EST, Route to Pharmacy Electronically, [facility] #[id number], D/C RX ON FILE FOR CLARIT[facility], 165, [...] tablet, 1 Refills, Maintenance, 07/12/20 13:56:00 EST, [facility] #[id number], Partial fill upon patient request if the prescription is for a schedule II opioid drug., 165, cm, 07/11/20 15:24:00 EST,... Start Date: 07/12/20 Stop Date: 07/05/21 Status: Ordered metoprolol 25 mg oral tablet 25 mg, 1, tablet, By Mouth, 2 times a day, # 60 tablet, Refills 5, Tot. Refills 5, Maintenance, 09/22/20 13:59:00 EST, Route to Pharmacy Electronically, [facility] #[id number], 165, cm, 07/31/2113:32:00 EST, Height, 127, kg, 02/03/20 14:39:00 ED... Start Date: 09/22/20 Status: Ordered Mitigare 0.6 mg oral capsule 1 capsule, By Mouth, Daily, # 30 capsule, 11 Refills, Maintenance, 12/31/20 16:51:00 EDT, [facility] #[id number], 165, cm, 11/19/20 11:32:00 EDT, Height, 127, [...] 0 Refills, Maintenance, 06/18/20 16:57:00 EST, Patch, [facility] #[id number], Partial fill upon patient request, 165, cm, 06/07/20 13:52:00 EST, Height, 127, kg, 02/03/20 14:39:00 EDT, Dry Weight Start Date: 06/18/20 Stop Date: 07/30/20 Status: Ordered NuLYTELY with Flavor Packs oral powder for reconstitution See Instructions, Drink 240mL every 15-20 minutes until first half is gone. Repeat 6 hours prior toprocedure., # 4,000 mL, 0 Refills, Maintenance, 06/28/20 17:09:00 EST, [facility] #[id number],Partial fill upon patient request if the prescript... Start Date: 06/28/20 Status: Ordered oxyCODONE 10 mg oral tablet 1 tablet = 10 mg, By Mouth, Every 8 hours, DX Z79.891 G89.29 M47.816 OK TO FILL LESS THAN PRESCRIBED AMOUNT, # 84 tablet, 0 Refills, Maintenance, 12/31/20 16:45:00 EDT, Tablet, [facility] #[id number], 01/01/21, 165, cm, 11/19/20 11:32:00 EDT, He... Start Date: 12/31/20 Stop Date: 01/28/21 Status: Ordered penicillin V potassium 250 mg oral tablet 1 tablet = 250 mg, By Mouth, 2 times a day, Cellulitis prophylaxis, # 60 tablet, 11 Refills, Maintenance, 10/30/20 12:09:00 EDT, [facility] #[id number], 165, cm, 10/19/20 8:59:00 EDT, Height, 127, kg, 02/03/20 14:39:00 EDT, Dry Weight Start Date: 10/30/20 Status: Ordered predniSONE 10 mg oral tablet 1 tablet = 10 mg, By Mouth, Daily, # 30 tablet, 5 Refills, Maintenance, 11/19/20 11:50:00 EDT, Tablet, [facility] #[id number], Partial fill upon patient request if the [...] 5 Refills, Maintenance, 04/30/20 15:13:00 EDT, Tablet, [facility] #[id number], 165, cm, 04/30/20 14:30:00 EDT, Height, 127, kg, 02/03/20 14:39:00 EDT, Dry Weight Start Date: 04/30/20 Status: Ordered rosuvastatin 10 mg oral tablet 1 tablet = 10 mg, By Mouth, Daily, # 90 tablet, 3 Refills, Maintenance, 05/03/20 16:35:00 EDT, Tablet, [facility] #[id number], d/c rx for capsules, 165, cm, 04/30/20 14:30:00 EDT, Height, 127, kg, 02/03/20 14:39:00 EDT, Dry Weight Start Date: 05/03/20 Status: Ordered Ventolin HFA 108 mcg/inh inhalation aerosol with adapter 2 puffs, Inhalation, Every 4 hours, PRN Wheezing/Shortness of Breath, # 1 each, 5 Refills, Soft Stop, 11/08/20 8:46:00 EDT, [facility] #[id number], 165, cm, 10/19/20 8:59:00 EDT, Height, 127, kg, 02/03/20 14:39:00 EDT, Dry Weight Start Date: 11/08/20 Status: Ordered warfarin 5 mg oral tablet 1 tablet = 5 mg, By Mouth, Daily, dosing subject to change pending inr lab values, # 30 tablet, 11 Refills, Maintenance, 08/31/20 15:36:00 EST, Tablet, [id number], 165, cm, 07/31/20 14:32:00 EST, Height, 127, [...] use(Confirmed) Active Gastric banding status(Confirmed) Active 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
--- OUTSIDE RECORDS SUMMARY | 2024-01-02 21:24 | XMS_ITS | Continuity of Care Document ---
Author Organization [facility] Robin Jane Nolberto Address [address] [place] [id number]- Care Team Providers Care Corporate Quality Assurance Manager Name Role Phone Kyle Ahumada DO Primary Care Physician Encounter [facility] [place](s): 02/18/23 - 03/20/23 [facility] Robin Bolañosley Adult [address] [place] [address]- Allergies, Adverse Reactions, Alerts Substance Reaction Severity [...] Jarrett rded influenza virus vaccine, inactivated 03/18/10 Ajrrett rded influenza virus vaccine, inactivated 04/21/09 Jarrett rded influenza virus vaccine, inactivated 06/19/08 Jarrett rded influenza virus vaccine, inactivated 05/10/07 Jarrett rded SARS-CoV-2 mRNA ([id number]) vax 08/30/21 Recorded SARS-CoV-2 (COVID-19) mRNA BNT-162b2 vac 01/02/21 Recorded SARS-CoV-2 (COVID-19) mRNA BNT-162b2 vac 5/9/21 Recorded Fluvirin (oldterm) 8 03/22/15 Given Fluzone Preservative-Free (oldterm) 9 03/12/12 Giv en pneumococcal 23-valent vaccine 10/08/11 Given tetanus/diphtheria/pertussis, acel(Tdap) 09/08/11 Given tetanus/diphtheria/pertussis, acel(Tdap) 12/17/06 Recorded influ virus vac, H1N1, inactive(oldterm) 10 05/08/11 Given hepatitis B adult vaccine 06/14/02 Recorded 1Result Comment: [id number] 2Result Comment: [id number] 3Result Comment: [id number] 4Result Comment: [id number] 5Result Comment: [07/08/2017] [id number] 6Admin Note: [facility] 7Admin Note: [facility] 04-08 8Admin Note: Given at [facility] 9Admin Note: 03-11-12 GIVEN AT [facility] 10Admin Note: rcvd elsewhere Medications acetaminophen 325 mg oral tablet 650 mg, 2, tablet, By Mouth, Every 6 hours, PRN, # 100 tablet, Refills 1, Tot. Refills 1, Maintenance, Pain , Moderate, 03/13/23 16:59:00 EDT, Route to Pharmacy Electronically, [facility], Partial fill upon patient request if the prescription... Start Date: 03/13/23 Status: Ordered Albuterol (Eqv-ProAir HFA) 90 mcg/inh inhalation aerosol See Instructions, INHALE 2 PUFFS BY MOUTH EVERY FOUR HOURS NEEDED FOR WHEEZING OR SHORTNESS OF BREATH, # 8.5 Gm, 5 Refills, Maintenance, 03/13/23 9:55:00 EDT, [facility], 30, INHALE 2 PUFFS BY [...] 03/12/23 15:30:00 EDT, Route to Pharmacy Electronically, [facility], 160, cm, 03/02/23 9:56:00 EDT, Height, 98.8, k... Start Date: 03/12/23 Status: Ordered cloNIDine 0.1 mg oral tablet 0.1 mg, 1, tablet, By Mouth, 2 times a day, PRN, # 60 tablet, Refills 2, Tot. Refills 2, Maintenance, Anxiety, 03/12/23 16:38:00 EDT, Route to Pharmacy Electronically, [facility], Partial fill upon patient request if the prescription is for a... Start Date: 03/12/23 Status: Ordered cyclobenzaprine 5 mg oral tablet 1 tablet = 5 mg, By Mouth, 3 times a day, # 45 tablet, 1 Refills, Maintenance, 03/03/23 9:27:00 EDT, Tablet, [facility], Partial fill upon patient request if the prescription is for a schedule II opioid drug., 160, cm, 03/02/23 9:56:00 EDT, He... Start Date: 03/03/23 Status: Ordered DilTIAZem (Eqv-Dilacor XR) 240 mg/24 hours oral capsule, extended release 1 capsule = 240 mg, By Mouth, Daily, # 90 capsule, 3 Refills, Maintenance, 03/13/23 17:04:00 EDT, CD Capsule, [facility], Partial fill upon patient request if the prescription is for a schedule II opioid drug., 160, cm, 03/02/23 9:56:00 EDT, H... Start Date: 03/13/23 Status: Ordered docusate sodium 100 mg oral capsule 100 mg, 1, capsule, By Mouth, 2 times a day, hold for loose stool, # 180 capsule, Refills 3, Tot. Refills 3, Maintenance, 03/13/23 16:56:00 EDT, Route to Pharmacy Electronically, [facility], Partial fill upon patient request if the prescriptio... Start Date: 03/13/23 Stop Date: 04/12/23 Status: Ordered duloxetine 20 mg oral enteric coated capsule 2 capsule = 40 mg, By Mouth, Daily at bedtime, # 60 capsule, 11 Refills, Maintenance, 06/25/21 12:00:00 EST, Capsule, [facility], Partial fill upon patient request if [...] 03/02/23 18:12:00 EDT, Route to Pharmacy Electronically, [facility], Partial fill upon patient request if the prescription is for a schedule II opioid drug... Start Date: 03/02/23 Status: Ordered ipratropium nasal 21 mcg/inh spray 2 sprays = 42 mcg, Nares, Both, 2 times a day, # 30 mL, 5 Refills, Maintenance, 03/13/23 16:58:00 EDT, [place], [facility], Partial fill upon patient request if [...] 02/07/23 18:12:00 EDT, Route to Pharmacy Electronically, [facility], 160, cm, 12/16/22 10:46:00 EDT, Height, [...] 3 Refills, Maintenance, 03/13/23 17:03:00 EDT, Patch, [facility], Partial fill upon patient request if the prescription is for a schedule II opioid drug., 1 patch Topically Daily, 160, cm, 03/02/23 9:56:0... Start Date: 03/13/23 Status: Ordered penicillin V potassium 250 mg oral tablet 1 tablet = 250 mg, By Mouth, 2 times a day, CELLULITIS PROPHYLAXIS, # 60 tablet, 5 Refills, Maintenance, 11/06/22 17:25:00 EDT, Tablet, [facility], Partial fill upon patient request if the prescription is for a schedule II opioid drug., 160, c... Start Date: 11/06/22 Stop Date: 05/05/23 Status: Ordered rOPINIRole 0.5 mg oral tablet 1 tablet, By Mouth, 3 times a day, ^1R1,1R3,1R4., # 90 tablet, 5 Refills, Maintenance, 12/24/22 14:21:00 [facility], cm, 12/16/22 10:46:00 EDT, Height, 98.8, kg, 07/17/22 8:58:00 EST, Dry Weight Start Date: 12/24/22 Status: Ordered rosuvastatin 10 mg oral tablet 1 tablet, By Mouth, Daily, ^1R1., # 30 tablet, 5 Refills, Maintenance, 02/07/23 18:12:00 EDT, [facility], 160, cm, 12/16/22 10:46:00 EDT, Height, 98.8, kg, 07/17/22 8:58:00 EST, Dry Weight Start Date: 02/07/23 Status: Ordered Symbicort 80mcg/4.5mcg Inhaler See Instructions, INHALE 2 PUFFS BY MOUTH TWICE A DAY RINSE MOUTH AND THROAT AFTER USE, # 10.2 Gm, Refills 5, Tot. Refills 5, Maintenance, 03/13/23 10:13:00 EDT, Instructions Replace Required Details, Route to Pharmacy Electronically, NCP_[id number]... Start Date: 03/13/23 Status: Ordered Xarelto 20 mg oral tablet 1 tablet = 20 mg, By Mouth, Daily at supper, # 90 tablet, 1 Refills, Maintenance, 03/02/23 18:12:00EDT, Tablet, [facility], pt was rx'd w diltiazem on [...] Role: Primary Care Nurse Address: Address: [address] [facility] [place] [address]- [place] Name: Marley Alejo RN Position: [facility] RN Member Role: Primary Care Nurse Name: Alma Delia Fonseca PharmD Position: [facility] Associate Professional Member Role: Lifetime Consulting Provider Address: Address: [address] [facility] [place] [address]- [place] Name: Yolis Mattson RN Position: [facility] RN Member Role: Primary Care Nurse Name: Priscila Garzon RN Position: [facility] RN Member Role: Primary Care Nurse Name: Kyle Ahumada DO Position: [facility] Physician - Primary Care Member Role: PCP Address: Address: [address] [place] [address]- [place] Name: Renea Mart RN Position: [facility] RN Member Role: Primary Care Nurse Care Team Related Persons Name: FAUZIA JANSEN Address: [address] [place] [address] Name: AURELIA SHETH Address: [address] [place] [address] Name: BRE OSORIO Address: [address] [place] [address]
--- OUTSIDE RECORDS SUMMARY | 2024-01-02 21:24 | XMS_ITS | Continuity of Care Document ---
Author Organization [facility] ter Address [address] [place] [id number]- Care Team Providers Care Blueprint Clerk Name Role Phone Krishan GRIDER, Eulogio Molina Primary Care Physician Encounter [facility] Date(s): 07/17/22 - 07/18/[address] [address] Discharge Disposition: A-D/C Home Attending Physician: Irving Cam MD Admitting Physician: [...] vaccine, inactivated 05/10/07 Jarrett rded SARS-CoV-2 mRNA (okdmnta-cvsx-mhopz) vax 08/30/21 Recorded SARS-CoV-2 (COVID-19) mRNA BNT-162b2 vac 6/9/21 Recorded SARS-CoV-2 (COVID-19) mRNA BNT-162b2 vac 12/02/20 Recorded Fluvirin (oldterm) 8 03/22/15 Given Fluzone Preservative-Free (oldterm) 9 03/12/12 Giv en pneumococcal 23-valent vaccine 10/08/11 Given tetanus/diphtheria/pertussis, acel(Tdap) 09/08/11 Given tetanus/diphtheria/pertussis, acel(Tdap) 12/17/06 Recorded influ virus vac, H1N1, inactive(oldterm) 10 05/08/11 Given hepatitis B adult vaccine 06/14/02 Recorded 1Result Comment: [id number] 2Result Comment: [id number] 3Result Comment: [id number] 4Result Comment: [id number] 5Result Comment: [07/08/2017] 44001-436-55 6Admin Note: [facility] 7Admin Note: [facility] [...] opioid drug. Start Date: 01/11/22 Status: Ordered Acetaminophen Tablet 650 mg, Tablet, By Mouth, 07/18/22 9:00:00 EST Start Date: 07/18/22 Stop Date: 07/18/22 Status: Completed Albuterol (Eqv-ProAir HFA) 90 mcg/inh inhalation aerosol See Instructions, INHALE 2 PUFFS BY MOUTH EVERY FOUR HOURS NEEDED FOR WHEEZING OR SHORTNESS OF BREATH, # 8.5 Gm, 4 Refills, Maintenance, 04/28/22 13:11:00 EDT, [facility], 17, INHALE 2 PUFFS BY MOUTH EVERY FOUR HOURS NEEDED FOR WHEEZING... Start Date: 04/28/22 Status: Ordered cefadroxil 500 mg oral capsule 1 capsule = 500 mg, By Mouth, Every 12 hours, for 10 days, # 20 capsule, 0 Refills, Acute 07/28/22 8:49:00 EST, 07/18/22 8:49:00 EST, Capsule, [facility], Partial fill upon patient request if the prescription is for a schedule II opioid... Start Date: 07/18/22 Stop Date: 07/28/22 Status: Ordered celecoxib 200 mg oral capsule [...] prescription is for a schedule II opioid . Start Date: 10/30/21 Status: Ordered cyclobenzaprine 10 mg oral tablet 10 mg, 1, tablet, By Mouth, 3 times a day, PRN, for 7 days, # 21 tablet, Refills 0, Tot. Refills 0,Acute 07/25/22 8:50:00 EST, Spasm, 07/18/22 8:50:00 EST, [facility], Partial fill upon patient request... Start Date: 07/18/22 Stop Date: 07/25/22 Status: Ordered Dilaudid Tablet 4 mg, Tablet, By Mouth, Every 4 hours, PRN for Pain , Severe, Routine, 07/17/22 14:54:00 EST Start Date: 07/17/22 Stop Date: 07/18/22 Status: Discontinued docusate sodium 100 mg oral capsule 100 mg, 1, capsule, By Mouth, 2 times a day, hold for loose stool, # 60 capsule, Refills 0, Tot. Refills 0, Maintenance, 01/11/22 7:25:00 EDT, Route to Pharmacy Electronically, [facility], Partial fill upon patient request if [...] 2 times a day, for 7 days, Discontinue when INR is greater than 1.8., # 4.2 mL, 0 Refills, Acute 07/25/22 8:55:00 EST, 07/18/22 8:55:00 EST, Injection, [facility], Partial fill upon patient request... Start Date: 07/18/22 Stop Date: 07/25/22 Status: Ordered HYDROmorphone 2 mg oral tablet See Instructions, PRN Pain , Moderate, Take 1-2 tablets every 4 hours as needed for modrate to severe pain., # 60 tablet, 0 Refills, Acute 07/25/22 8:00:00 EST, 07/18/22 8:49:00 EST, Tablet, [facility], Partial fill upon patient request... Start Date: 07/18/22 Stop Date: 07/25/22 Status: Ordered lamotrigine 200 mg oral tablet [...] 07/17/22 17:07:00 EST, [facility], [facility], cm, 07/17/22 12:03:00 EST, Height, 98.8, kg, 07/17/22 8:58:00 EST, Dry Weight Start Date: 07/17/22 Status: Ordered Maalox Plus Liquid 30 mL, By Mouth, Every 4 hours, PRN Other, Heartburn, 0 Refills, Maintenance, 07/18/22 8:57:00 EST,Suspension, Partial fill upon patient request if the prescription is for a schedule II opioid drug. Start Date: 07/18/22 Status: Ordered metoprolol 25 mg oral tablet 75 mg, Tablet, By Mouth, 07/18/22 9:00:00 EST Start Date: 07/18/22 Stop Date: 07/18/22 Status: Completed metoprolol tartrate 75 mg oral tablet 1 [...] 90 tablet, 5 Refills, 03/07/22 6:14:00 EDT, [facility], 159, cm, 01/11/22 15:15:00 EDT, Height, 98.8, kg, 01/10/22 9:12:00 EDT, Dry Weight Start Date: 03/07/22 Status: Ordered rosuvastatin 5 mg oral tablet [...] Gm, 5 Refills, Maintenance, 07/17/22 11:09:00 EST, [facility], 160, cm, 07/17/22 8:49:00 EST, Height, 98.8, kg, 07/17/22 8:58:00 EST, Dry Weight Start Date: 07/17/22 Status: Ordered Symbicort 80mcg/4.5mcg Inhaler See Instructions, INHALE 2 PUFFS BY MOUTH TWICE A DAY RINSE MOUTH AND THROAT AFTER USE, # 10.2 Gm, Refills 5, Instructions Replace Required Details, Route to Pharmacy Electronically, [id number]_[id number], [facility], 159, cm, 01/11/22 15:15:00 EDT... Start Date: 02/13/22 Status: Ordered traMADol 50 mg oral tablet See Instructions, PRN Pain , Mild, Take 1 to 2 tablets every 6 hours as needed for mild pain. not to exceed 400 mg/day, # 56 tablet, 0 Refills, Acute 07/25/22 8:00:00 EST, 07/18/22 8:50:00 EST, Tablet, [facility], Partial fill upon elodia... 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 Keep leg straight; 2 Views COMPARISON: 03/21/2020. FINDINGS: Status post total knee arthroplasty with normal alignment of the hardware. No acute fracture. Expected soft tissue swelling and emphysema about the knee. IMPRESSION: Status post total knee arthroplasty without evidence of hardware failure or complication. WSN: [id number] Ordering Physician: Antonina Johnson Dictated By: Shahnaz Ross MD Dictated Date/Time: 07/17/22 10:56 p Reviewed By: Shahnaz Ross MD Signed By: Shahnaz Ross MD Signed Date/Time: 07/17/22 10:56 pm Transcribed By: MILADYS Transcribed Date/Time: 07/17/22 10:56 pm Vital Signs Most recent to oldest [Reference Range]: 1 2 3 4 Height 160 cm (07/18/22 11:39 AM) 160 cm (07/18/22 7:50 AM) 160 cm (07/17/22 5:12 PM) Weight 102.3 kg (07/17/22 12:03 PM) 102.3 kg (07/17/22 8:05 AM) Oxygen Saturation [94-100 %] 91 % *L* (07/18/22 11:39 AM) 95 % (07/18/22 7:50 AM) 96 % (07/18/22 3:00 AM) Pulse Rate [55-90 bpm] 51 bpm *L* (07/18/22 11:39 AM) 53 bpm *L* (07/18/22 8:56 AM) 53 bpm *L* (07/18/22 7:50 AM) Body Mass Index [18.5-24.99 kg/m2] 39.96 kg/m2 *>HHI* (07/17/22 12:03 PM) 39.96 kg/m2 *>HHI* (07/17/22 8:05 AM) Blood Pressure [90-138/55-84 mm Hg] 105/51mm Hg (07/18/22 11:39 AM) 109/73mm Hg (07/18/22 8:56 AM) 109/73mm Hg (07/18/22 7:50 AM) Respiratory Rate [16-30 br/min] 18 br/min (07/18/22 12:52 PM) 18 br/min (07/18/22 11:39 AM) 18 br/min (07/18/22 9:56 AM) 18 br/min (07/18/22 9:56 AM) Temperature [96.8-100.4 DegF] 98.2 DegF (07/18/22 11:39 AM) 98.1 DegF (07/18/22 7:50 AM) 98.4 DegF (07/18/22 3:00 AM) Liters per Minute 2 L/min (07/17/22 4:15 PM) 2 L/min (07/17/22 4:00 PM) Mode of Delivery (Oxygen) Room air (07/18/22 11:39 AM) Room air (07/18/22 7:50 AM) Room air (07/18/22 3:00 AM) Blood pressure sites Arm, right (07/18/22 11:39 AM) Arm, left (07/18/22 7:50 AM) Arm, right (07/18/22 3:00 AM) Temperature Route Oral (07/18/22 11:39 AM) Oral (07/18/22 7:50 AM) Oral (07/18/22 3:00 AM) Dry Weight 98.8 kg (07/17/22 8:05 AM) Social History Social History Type Response Smoking Status 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 Female History and physical note * Event Display: History and Physical Hospital Authored Date: * Event Display: History and Physical Hospital Authored Date: Note * Event Display: Adult Preadmission Health Questionnaire Authored Date: * Event Display: Cardiac Rhythm Strips Authored Date: * Alma Delia Quintero RN: PERFORM Event Display: Discharge/Transfer Note Hospital Authored Date: Nursing Discharge Note Entered On: 07/18/2022 14:24 EST Performed On: 07/18/2022 14:23 EST by Alma Delia Quintero RN Nursing Discharge Note 2 Discharge Time : 07/18/2022 14:20 EST Discharge Level of Care at Discharge : Homehealth/VNA Discharge VNA/Hospice/Home Care(v001) : [facility] Patient Left Unit Via : Wheelchair Patient Accompanied Off Unit with : Responsible adult DC Instructions Provided & Signed by Pt : Yes Patient Understands D/C Instructions : Yes Verbalized Understanding of D/C Plan By : Patient Patient Instructions Discharge Signed : Yes Did Pt have Specialty Bed or Wound Vac : No Alma Delia Quintero RN - 07/18/2022 14:23 EST * Debi Van NP: MODIFY, SIGN, PERFORM, SIGN, VERIFY Event Display: Discharge/Transfer Note Hospital Authored Date: Patient: FRANKLIN HARRISON Age: 56 years Sex: Female : 1965 Associated Diagnoses: None Author: Debi Van NP Discharge Summary Admission Date: July 17, 2022 Discharge Date: July 18, 2022 Admitting Diagnosis: Left knee osteoarthritis Discharge Diagnosis: Left knee osteoarthritis Final Diagnosis : Left knee osteoarthritis Procedure: Left total knee arthroplasty Surgeon: Dr. Irving Cam Past Medical History: 1. Osteoarthritis of the left knee. 2. COPD, where the patient reports is well controlled on her inhalers. 3. Fibromyalgia. 4. PTSD. 5. Obesity with BMI of 38. 6. Restless leg syndrome for which she is on ropinirole. 7. Diabetes type 2, her hemoglobin A1c preoperatively is 6.1. 8. Atrial fibrillation/atrial flutter. She is on chronic Coumadin. The patient will take anywhere from 2.5 to 5 mg daily and her INR is checked by a visiting nurse. 9. Obstructive sleep apnea, where the patient reports she wears a BiPAP every night with the settings of 4-9. 10. Scoliosis. 11. Spinal stenosis. 12. Severe venous stasis with skin changes. 13. History of DVT in 2009 and 2011. 14. Recurrent UTIs, on chronic nitrofurantoin. 15. Recurrent cellulitis on chronic penicillin. 16. Bipolar disorder. 17. Hyperparathyroidism. 18. Overactive bladder. 19. Chronic lymphedema. 20. Pseudoseizures. 21. Tobacco abuse, where the patient reports she is trying to quit. She was previously smoking 2 packs per day. She now reports she is down to about a pack per day, although she has not had any yet today and has been chewing nicotine gum. 22. Chronic pain syndrome. 23. Chronic use of narcotics for the patient was previously prescribed necrotic; however, tested positive for fentanyl and her prescription was discontinued. 24. Recurrent bacterial cystitis. 25. Cervical radiculopathy where she is currently being referred to Neurosurgery for her cervical degenerative disk disease. PAST SURGICAL HISTORY: 1. She had a right total knee replacement by Dr. Cam 11/2021. 2. Gastric lap band in 2004. 3. Transvaginal hysterectomy in 2012. 4. Tummy tuck in 2006. 5. Right knee arthroscopy in 1978 and 1980. 6. Bladder sling. 7. Neurostimulator, which was replaced in her back in 2009 and removed in 2010. Orthopedics: The patient is status post left 30 total knee arthroplasty. It is anticipated that pa be discharged home today pending PT, OT clearance. The patient is doing well from a surgical standpoint. Her incision is healing well. Neurovascular status is intact. Calves are supple and nontender. Making good progress with Physical Therapy and Occupational therapy. Supervision with ambulation walking 25 feet , ambulating with a walker weightbearing as tolerated. ROM 0-90. Pain is well controlled on his current regimen, Acetaminophen 650 mg every 6 hours, Celebrex 200 mg daily, tramadol as needed for mild pain, and Dilaudid 2-4 mg every 4 hours as needed moderate to severe pain. Patient is tolerating this well. She will be sent home with a prescription for this medication. Prescription: Tramadol 50 mg tablet. Take 1-2 tablets every 6 hours as needed for pain x 7 days. # 60 56 tablet. Dilaudid 2 mg tablet. Take 1-2 tablets every 4 hours as needed for pain x 5 days. # 60 tablet. Hospital course: Relatively uneventful medically. Potassium elevated at 5.4 postop day 1 this was rechecked and was 5.0. Telemetry stable throughout length of stay. The patient will be discharged home on cefadroxil for prophylactic infection prevention pain is controlled now. Patient is voiding spontaneously. + bowel sounds. No other issues. No calf tenderness. Current Medication List: Acetaminophen: 650 mg, By Mouth, Every 6 hours, May take OTC, follow directions on bottle Al Hydroxide/Mg Hydroxide/Simethicone: 30 mL, By Mouth, Every 4 hours, PRN (Other), Heartburn Albuterol: See Instructions, INHALE 2 PUFFS BY MOUTH EVERY FOUR HOURS NEEDED FOR WHEEZING OR SHORTNESS OF BREATH Budesonide-Formoterol: See Instructions, INHALE 2 PUFFS BY MOUTH TWICE A DAY RINSE MOUTH AND THROATAFTER USE Cefadroxil: 500 mg = 1 capsule, By Mouth, Every 12 hours Celecoxib: 200 mg = 1 capsule, By Mouth, Daily in AM Clonidine: 0.1 mg = 1 tablet, By Mouth, 2 times a day before breakfast and dinne, PRN (Anxiety) Colchicine: 0.6 mg = 1 tablet, By Mouth, Daily Cyclobenzaprine: 10 mg = 1 tablet, By Mouth, 3 times a day, PRN (Spasm) Docusate: 100 mg = 1 capsule, By Mouth, 2 times a day, hold for loose stool dronedarone: 400 mg = 1 tablet, By Mouth, 2 times a day Duloxetine: 60 mg = 1 capsule, By Mouth, Daily in AM Duloxetine: 40 mg = 2 capsule, By Mouth, Daily at bedtime Enoxaparin: 30 mg = 0.3 mL, Subcutaneous Injection, 2 times a day, Discontinue when INR is greater than 1.8. Hydromorphone: See Instructions, PRN (Pain , Moderate), Take 1-2 tablets every 4 hours as needed for modrate to severe pain. Lamotrigine: 200 mg = 1 tablet, By Mouth, Daily at bedtime Loratadine: 1 tablet, By Mouth, Daily, R1. Metoprolol: 75 mg = 1 tablet, By Mouth, 2 times a day Milk of Magnesia: 30 mL, By Mouth, Daily, PRN (Constipation) Pantoprazole: 40 mg, By Mouth, Daily in AM penicillin V potassium: 250 mg = 1 tablet, By Mouth, 2 times a day Polyethylene Glycol 3350: 17 Gm = 1 pack/packet, By Mouth, Daily, PRN (Constipation) Ropinirole: 1 tablet, By Mouth, 3 times a day Rosuvastatin: 10 mg = 2 tablet, By Mouth, Daily at bedtime Senna: 8.6 mg = 1 tablet, By Mouth, Daily at bedtime, PRN (as needed for constipation) Tiotropium: See Instructions, INHALE 2 PUFFS BY MOUTH DAILY Tramadol: See Instructions, PRN (Pain , Mild), Take 1 to 2 tablets every 6 hours as needed for mildpain.not to exceed 400 mg/day Warfarin: See Instructions, Take 1-10 tabs daily as directed by [facility]. Allergies: Allergies (Active and Proposed Allergies Only) Adhesive Bandage (Severity: Unknown severity, Onset: Unknown) Dust (Severity: Unknown severity, Onset: Unknown) Reactions: copd exac/sinus congestion Current Labs: Last 24 Hours Basic Metabolic Panel: Hematology: Sodium: 138 mmol/L (07/18/22) Hgb: 12.5 Gm/dL (07/18/22) Potassium (POC): Potassium (07/18/22) Hemoglobin A1C (Monitoring): ------ Phosphorus: ------ WBC: 10.9 k/mm3 (07/18/22) Magnesium: ------ Platelets: 209 k/mm3 (07/18/22) BUN (POC) POC Cartridge: 18 mg/dL (07/18/22) INR Level: 1.1 (07/18/22) Creatinine-Blood: 0.8 mg/dL (07/18/22) Creatinine Clearance: ------ Additional - Last 24 Hours Abs. NRBC: 0.0 k/mm3 (07/18/22) Anion Gap: 11 (07/18/22) Bicarbonate Level: 24 mmol/L (07/18/22) BUN: BUN (07/18/22) Chloride: 103 mmol/L (07/18/22) Creatinine, Blood: Creatinine, Blood (07/18/22) Estimated GFR Creatinine: 88 ML/MIN/1.73 M2 (07/18/22) Glucose, POC: Glucose, POC (07/18/22) Hct: 38.5 % (07/18/22) Hold Gel Top: SPECIMEN DISCARDED AFTER 1 WEEK (07/17/22) Hold Tube (Gel): Hold Tube (Gel) (07/17/22) INR (Coumadin Clinic): INR (Coumadin Clinic) (07/17/22) MCH: 30.3 pg (07/18/22) MCHC: 32.5 g/dL (07/18/22) MCV: 93.4 femtoliters (07/18/22) MPV: 11.0 femtoliters (07/18/22) Nucleated RBC (Automated): 0.0 #/100 WBC'S (07/18/22) Protime (PT): Protime (PT) (07/18/22) RBC: 4.12 m/mm3 (07/18/22) RDW-SD: 48.3 femtoliters (07/18/22) DVT prophylaxis Coumadin/Lovenox bridge. Take 3 mg of Coumadin today July 18, 2022, take 3 mg of Coumadin tomorrow July 19, 2022, take 3 mg Thursday, July 20, 2022. INR to be drawn on Thursday, July 21, 2022. And [facility] will call with further dosing. Lovenox: 30 mg subcutaneous injection twice a day. Discontinue when INR is greater than 1.8 INRs to be drawn Iguwcd-Lvztnboyc-Idbxvz x 1 week by VNA and [facility] and . [facility] will dose the patient for 30 days. Disposition: Anticipates being discharged today to home. Follow up at [facility] on July 31, 2022 at 3:15 PM, patient is aware of this. The patient has an Aquacel dressing in place. He may shower with it and the dressing can be discontinued on POD 14. Discharge Information Admission Date: 07/17/2022 Principal Discharge Diagnosis Discharge Plan Discharge Disposition Discharge: home with VNA. Home Health Face to Face I certify that this patient is under my care and that I or an allowed non- physician practitioner working with me, had a [id number] encounter with the patient on this date: 07/18/2022. The encounter with the patient was in whole, or in part, for the following medical condition, whichis the primary reason for home health care: Osteoarthritis of left knee. Physical Therapy: Functional mobility training, Home exercise program to strengthen, increase ROM, Draw INR Thursday x1 week and fax results to [facility].. Homebound due to: Inability to leave home without assistance/supervision, Inability to ambulate without assistance, Pain, decreased strength, and endurance. Physician Signature: Tutu GRIDER, Irving Lema * Leon COLBERT, Alma Delia: PERFORM Event Display: Patient Education/Instruction Authored Date: [id number] Inpatient Adult Discharge Instructions [address] [address] Name: FRANKLIN HARRISON : 1965 Visit: 07/17/2022 08:03:00 Current Date: 07/18/2022 12:29 Account: [id number] Inpatient Adult Discharge Instructions We would like to thank you for allowing us to assist you with your healthcare needs. The following includes patient education materials and information regarding your injury/illness. Our entire staffstrives to provide an excellent experience for our patients and their families. PLEASE ENSURE YOU FOLLOW-UP PER THE INSTRUCTIONS BELOW! ?? YOUR OPINION IS IMPORTANT TO US! Please complete the survey you may receive by mail or email. Your feedback will be used to make improvements to the healthcare experiences of our patients and their families. Surveys are administered by [employer] ?? If further treatment with your primary care physician or another doctor is recommended, it is important for you to keep the appointment. Call your primary care physician or return to the Emergency Department immediately if your condition worsens, fails to improve, or new symptoms develop. If you need to find a doctor, you can call [facility] for a referral at [phone] or toll free at [phone] ([phone]) or log in to [email or web address].. ?? You can view and manage your care through the patient portal or by using a health care stone of your choosing. [employer] is a website that allows you to securely view your medical information including your hospital discharge summary, office visit summaries, medications and follow-up visits. You can also request appointments, renew medications, and request access to your medical information using a health care stone of your choosing, or just ask a question. You can enroll at [email or web address] or register during your next office visit. You have been discharged from [facility], Patient Care Unit: SW7. If you have any questions regarding these instructions after you leave, please call us and we will be happy to assist you. [facility] Your Care Team Attending Physician Tutu GRIDER, Irving Moody Discharging Providers Rehan ROMERO, Debi Reason for Admission OA LEFT KNEE TOTAL ARTHROPLASTY OVN Your Diagnosis Osteoarthritis of left knee Tests Performed Below is a partial list of the tests performed during your hospitalization. You may have had other tests and procedures not included in this list. Please discuss all test results with your provider. BUN CBC Creatinine Electrolytes GLUCOSE POC HOLD GEL TUBE INR Potassium Level XR Knee 1 or 2 Views Left Primary Care Provider Eulogio Nickerson MD Advance Directive Health Care Proxy on File Yes - Health Care Proxy No qualifying data available. Discharge Vitals Temperature: 98.2 DegF Height: 160 cm Pulse Rate:??51 bpm??Low Weight: 102.3 kg Respiratory Rate: 18 br/min Body Mass Index:??39.96 kg/m2??Critical Systolic Blood Pressure: 105 mm Hg Body surface area: 2.13 Diastolic Blood Pressure:??51 mm Hg??Low ?? Oxygen Saturation:??91 %??Low ?? Studies Pending All tests and labs ordered during this hospital stay have been completed unless listed below. Please discuss all pending results with your provider listed above in these instructions. ?? BUN CBC Creatinine Electrolytes INR What to do next Instructions From Your Doctor Discharge Orders Scheduled Follow-Up Appointments Thursday 1:00 PM EST ?? With: Where: [facility] Thursday 2:00 PM EST ?? With: Boogie GRIDER, Zak Da Silva Where: [facility] [address] [place] [address] Drive [address] [place] [address]- You Need to Schedule the Following Appointments Follow Up with??Eluogio Nickerson When??In 0 days Follow Up with??[facility] When??Within 1 to 2 weeks Why: You have appointments: ?? 07/31/21 @ 3:15pm ?? 08/29/21 @ 2:20pm Where: [address] [place] [address] [address] [place] [address]- [facility] ?? Discharge Medications FRANKLIN HARRISON :1965 Visit Date:07/17/2022 Medications: Please continue your medications until treatment is completed or stopped by your provider. Medications not listed below should be discontinued. Discuss any questions related to medications with your provider. What How Much When Instructions Next Dose New Al Hydroxide/ Mg Hydroxide/ Simethicone (Maalox Plus Liquid) 30 Milliliter Oral Every 4 hours as needed for Other Heartburn ?? as needed New Cefadroxil (cefadroxil 500 mg oral capsule) 1 capsule Oral Every 12 hours Duration: 10 Days Pickup at [place] [address] 07/18 PM New Celecoxib (celecoxib 200 mg oral capsule) 1 capsule Oral Daily in the morning 07/19 AM New Clonidine (cloNIDine 0.1 mg oral tablet) 1 tab(s) Oral 2 times a day before breakfast and dinner as needed for Anxiety as needed New Cyclobenzaprine (cyclobenzaprine 10 mg oral tablet) 1 tab(s) Oral 3 times a day as needed for Spasm Duration: 7 Days Pickup at [place] [address] as needed New Enoxaparin (enoxaparin 30 mg/ 0.3 mL injectable solution) 0.3 Milliliter Subcutaneous Injection Twice a day Duration: 7 Days Discontinue when INR is greater than 1.8. ?? Pickup at [place] [address] 07/19 AM New Hydromorphone (HYDROmorphone 2 mg oral tablet) See instructions Take 1-2 tablets every 4 hours as needed for modrate to severe pain. ?? Pickup at [place] [address] 07/18 5pm ?? DO NOT TAKE DILAUDID AND TRAMADOL TOGETHER!!! New Lamotrigine (lamotrigine 200 mg oral tablet) 1 tab(s) Oral Daily at Bedtime 07/18 PM New Milk of Magnesia (Milk of Magnesia Liquid) 30 Milliliter Oral Daily as needed for Constipation as needed New Pantoprazole (pantoprazole 40 mg oral delayed release tablet) 40 Milligram Oral Daily in the morning 07/19 AM New Polyethylene Glycol 3350 (MiraLax Powder) 17 gram Oral Daily as needed for Constipation as needed New Senna (senna 187 mg oral tablet) 1 tab(s) Oral Daily at Bedtime as needed for as needed for constipation 07/18 PM New Tramadol (traMADol 50 mg oral tablet) See instructions Take 1 to 2 tablets every 6 hours as needed for mild pain. not to exceed 400 mg/ day ?? Pickup at [facility] 3 as needed ?? DO NOT TAKE DILAUDID AND TRAMADOL TOGETHER!!! Changed Rosuvastatin (rosuvastatin 5 mg oral tablet) 2 tab(s) Oral Daily at Bedtime 07/18 PM Changed Warfarin (warfarin 1 mg oral tablet) See instructions Take 1-10 tabs daily as directed by [facility]. ?? Pickup at [facility] 3 Take 3 mg of Coumadin today July 18, 2022, take 3 mg of Coumadin tomorrow July 19, 2022, take 3 mg Thursday, July 20, 2022. ??INR to be drawn on Thursday, July 21, 2022. ??And [facility] will call with further dosing. Changed penicillin V potassium (penicillin V potassium 250 mg oral tablet) 1 tab(s) Oral Twice a day 07/18 PM Unchanged Acetaminophen (acetaminophen 325 mg oral tablet) 650 Milligram Oral Every 6 hours May take OTC, follow directions on bottle ?? 07/18 3pm Unchanged Albuterol (Albuterol (Eqv-ProAir HFA) 90 mcg/ inh inhalation aerosol) See instructions INHALE 2 PUFFS BY MOUTH EVERY FOUR HOURS NEEDED FOR WHEEZING OR SHORTNESS OF BREATH ?? as needed Unchanged Budesonide-Formoterol (Symbicort 80mcg/ 4.5mcg Inhaler) See instructions INHALE 2 PUFFS BY MOUTH TWICE A DAY RINSE MOUTH AND THROAT AFTER USE ?? may resume home medications as PRESCRIBED Unchanged Colchicine (colchicine 0.6 mg oral tablet) 1 tab(s) Oral Daily 07/19 AM Unchanged Docusate (docusate sodium 100 mg oral capsule) 1 capsule Oral Twice a day Duration: 30 Days hold for loose stool ?? 07/18 PM Unchanged dronedarone (Multaq 400 mg oral tablet) 1 tab(s) Oral Twice a day 07/18 PM Unchanged Duloxetine (duloxetine 20 mg oral enteric coated capsule) 2 capsule Oral Daily at Bedtime 07/18 PM Unchanged Duloxetine (duloxetine 60 mg oral enteric coated capsule) 1 capsule Oral Daily in the morning 07/19 AM Unchanged Metoprolol (metoprolol tartrate 75 mg oral tablet) 1 tab(s) Oral Twice a day 07/18 PM Unchanged Ropinirole (rOPINIRole 0.5 mg oral tablet) 1 tab(s) Oral 3 times a day 07/18 3pm Unchanged Tiotropium (Spiriva Respimat 1.25 mcg/ inh inhalation aerosol) See instructions INHALE 2 PUFFS BY MOUTH DAILY ?? may resume home medications as PRESCRIBED Pharmacy Information [facility]: [address], [place] [id number] [phone] ?? What How Much When Comments Stop Taking Digoxin (digoxin 0.125 mg oral tablet) 1 tab(s) Oral Daily Test Results Below is a partial list of the most recent Laboratory test results done prior to this discharge. You may have had other tests and procedures not included in this list. Please discuss all test resultswith your provider. BUN (07/18/2022) ???BUN - 18 mg/dL CBC (07/18/2022) ???WBC - 10.9 k/mm3???RBC - 4.12 m/mm3???Hgb - 12.5 Gm/dL???Hct - 38.5 %???MCV - 93.4 femtoliters???MCH - 30.3 pg???MCHC - 32.5 g/dL???Platelet Count - 209 k/mm3???RDW-SD - 48.3 femtoliters???MPV - 11.0 femtoliters???Nucleated RBC (Automated) - 0.0 #/100 WBC'S???Abs. NRBC - 0.0 k/mm3 Creatinine (07/18/2022) ???Creatinine-Blood - 0.8 mg/dL???Estimated GFR Creatinine - 88 ML/MIN/1.73 M2 Electrolytes (07/18/2022) ???Sodium - 138 mmol/L???Potassium - 5.4 mmol/L???Chloride - 103 mmol/L???Bicarbonate Level - 24 mmol/L???Anion Gap - 11 GLUCOSE POC (07/18/2022) ???Glucose, POC - 186 mg/dL HOLD GEL TUBE (07/17/2022) ???Hold Gel Top - SPECIMEN DISCARDED AFTER 1 WEEK INR (07/18/2022) ???INR - 1.1???Protime (PT) - 10.9 seconds Potassium Level (07/18/2022) ???Potassium - 5.0 mmol/L Allergies (NKA means No Known Allergies) Adhesive Bandage Dust??(copd exac/sinus congestion) Problems Active Problems??(35) Anticoagulant long-term use?? Arthritis of knee - bilateral?? Bipolar disorder NOS?? Cervical radiculopathy - left?? Chronic back pain?? Chronic deep vein thrombosis (DVT)?? Chronic obstructive pulmonary disease (COPD)?? Chronic pain syndrome?? Cigarette smoker?? DJD (degenerative joint disease), lumbar?? Encounter for screening colonoscopy?? Essential tremor?? Fibromyalgia?? Gastric banding status?? Hyperparathyroidism?? assisted current use of opiate analgesic?? Lymphedema?? Overactive bladder?? Paroxysmal atrial flutter?? Persistent moderate somatic symptom disorder with predominant pain?? Prophylactic antibiotic - daily Pen VK for lymphedema , prevention of cellulitis?? Pruritic rash?? Pseudogout of knees?? Pseudoseizures?? PTSD - Post-traumatic stress disorder?? Recurrent bacterial cystitis?? Restless leg syndrome?? Scoliosis?? Severe obesity (BMI 35.0-39.9) with comorbidity?? Severe obstructive sleep apnea-hypopnea syndrome?? Spinal stenosis, lumbar?? Stasis dermatitis?? Straining with stools?? Type 2 diabetes mellitus with hyperglycemia?? UI (urinary incontinence)?? Education Materials Below is the list of Educational Leaflet Providered with your Discharge Instructions. Discharge Instructions for Total Knee Replacement?? Cefadroxil Oral Capsule?? Hydromorphone Oral Tablet?? Cyclobenzaprine Oral Tablet?? Warfarin Oral Tablet?? Enoxaparin Prefilled Syringe?? Valuables and Belongings I fully understand and agree that [facility] accepts no responsibility for all my personal property including clothing, toilet articles, radios, jewelry, dentures, hearing aids, rings, money, or any other property that is in my possession or is brought to me after admission. I understand certain valuables may be placed in a hospital safe for a short period of time. I understand that the hospital is not liable for loss or damage due to accident, fire, or other natural occurrence while said property is in the safe. I accept full responsibility for any personal property that I keep with me, and will not hold the hospital responsible in case of loss or disappearance. I acknowledge that i have been encouraged to send valuables and belongings home. ?? Review of Valuable and Belonging List: With patient Date for Pt to Sign Valuables/Belongings: 07/17/22 10:11:00 ?? Other Discharge Information ? Case Management Discharge Plan?? Discharge Plan?? Discharge Agency Information?? Discharge Level of Care at Discharge: Homehealth/[facility]NA Service Categories #1: Blood work, Physical Therapy, Other: Coumadin Monitoring Fingerstick PT/INR's Discharge Rx Program: Discharge Prescription Program Service Comments #1: The [facility] will call you the day after you are discharged to set up a visit time.If you do not hear from them, please call them at [facility] Discharge VNA/Hospice/Home Care: [facility] ? Pulmonary Rehab Status?? Pulmonary Rehab Discharge Status?? Respiratory Rate: 18 br/min ? Common Emergency Awareness Tips IS IT A STROKE? Act FAST and Check for these signs: FACE Does the face look uneven? ARM Does one arm drift down? SPEECH Does their speech sound strange? TIME Call at any sign of stroke ?? Heart Attack Signs Chest discomfort: Most heart attacks involve discomfort in the center of the chest and lasts more than a few minutes, or goes away and comes back. It can feel like uncomfortable pressure, squeezing, fullness or pain. Discomfort in upper body: Symptoms can include pain or discomfort in one or both arms, back, neck, jaw or stomach. Shortness of breath: With or without discomfort. Other signs: Breaking out in a cold sweat, nausea, or lightheaded. Remember, MINUTES DO MATTER. If you experience any of these heart attack warning signs, call to get immediate medical attention! ?? Smoking can increase your chances of developing chronic health problems and can cause harmful effects to other family members in your house. If you smoke, you are strongly encouraged to quit. Please call [facility] at [phone] or 3-165-336[employer] (9108) or log in to www.[email or web address] for referrals to smoking cessation programs. ?? The National Suicide Prevention Hotline is available 16/02 if you or someone you know needs to find a reason to keep living. By calling 5-459-248-[employer] (2370) you'll be connected to a skilled, trained counselor at a crisis center in your area. INPATIENT DISCHARGE INSTRUCTIONS SIGNATURE PAGE CHRISTY, FRANKLIN Location:[facility] Registration Date and Time:07/17/2022 08:03 [facility] Primary Care Physician: Krishan GRIDER, Eulogio Molina, I FRANKLIN HARRISON, have received the above patient education materials/instructions and have verbalized understanding. If ambulance or transport services are being used I further acknowledge being given a choice of service. ?? If you need to contact me, please call me at this number: . Patient/Show Operations Supervisor Name: Patient/Show Operations Supervisor Signature: Relationship to Patient: Witness Name/Signature: Date: * Alma Delia Quintero RN: PERFORM, SIGN, VERIFY Event Display: Patient Education Handout Authored Date: * Alma Delia Quintero RN: PERFORM Event Display: Patient Education Leaflets Authored Date: Discharge Instructions for Total Knee Replacement ?? 23504 Discharge Instructions for Total Knee Replacement You have had knee replacement surgery. The knee joint forms??where the thighbone, shinbone, and kneecap meet. The knee joint is supported by muscles and ligaments It's lined with a cushioning called cartilage. Over time, cartilage wears away. This can make the knee feel stiff and painful. Your surge on replaced your painful joint with an artificial joint to relieve pain and restore movement. Here are some directions to follow once at home. Home care ??? Follow your surgeon's directions on when it's OK to shower. Carefully wash your incision as directed. Rinse the incision (cut) well. Then gently pat it dry. Don???t rub the incision, orapply creams or lotions. Sit on a shower stool or chair when you shower to keep from falling. ??? Take all medicine as directed by your surgeon. ?? Sitting and sleeping ??? Sit in chairs with arms. The arms make it easier for you to stand up or sit down. ??? Don???t sit for more than 30 to 45 minutes at a time. ??? Nap if you are tired, but don???t stay in bed all day. ??? Sleep with a pillow under your ankle, not your knee. Be sure to change the position of your leg during the night. ?? Moving safely ??? The mcgrath to successful recovery is movement??with walking and exercising your kneeas directed by your healthcare provider. You should be able to start moving your leg shortly after surgery as directed by your surgeon. ? Walk up and down stairs with support. Try 1 step at a time. Use the railing if possible. ??? Don???t drive until your healthcare provider says it???s OK. Most people can start driving about??6 weeks after surgery. Don???t drive while you are taking opioid pain medicine. ?? Other precautions ??? Don't soak your knee in water??until your surgeon says it???s OK. This means no hot tubs, bathtubs, or swimming pools. ??? You may be given support stockings. If so, wear them as directed by your surgeon. These may be needed for 4 to 6 weeks after surgery. If needed, you can place a bandage over the incision to prevent irritation from clothing or support stockings. ??? Arrange your household to keep the items you need handy. Keep everything else out of the way. Remove items that may cause you to fall, such as throw rugs and electrical cords. ??? Use nonslip bathmats, grab bars, an elevated toilet seat, and a shower chair in your bathroom. ??? Until your balance, flexibility, and strength improve, use a cane, crutches, a walker, handrails, or someone to help you. ??? Keep your hands free by using a backpack, ibeth pack, apron, or pockets to carry things. ??? Preventinfection. Ask your healthcare provider for instructions if you haven???t already received them. Any infection will need to be treated right away. Call your healthcare provider right away if you think you might have an infection. ??? Tell your dentist that you have an artificial joint. You may be directed to take antibiotics as prescribed before any dental work. ??? Tell all your healthcare providers about your artificial joint before any medical procedure. ??? Stay at a healthy weight. Get help to lose any extra pounds. Added body weight puts stress on the knee. ??? Take any medicine you may have been given after surgery as prescribed. This may include blood-thinning medicine to prevent blood clots or antibiotics to prevent infection. ?? Follow-up care Follow up with your healthcare provider as advised. If you have corby or stitches to close your incision, follow your surgeon's instructions on when to return to have them removed, usually about 2 to 3 weeks after surgery. ?? Call 911 Call 911 right away??if either of the following occur: ??? Chest pain ??? Shortness of breath ?? When to call your healthcare provider Call your healthcare provider right away if any of the following occur: ??? Fever of 100.4??F (38??C) or higher, or as directed by your healthcare provider ??? Pain or swelling in your calf ??? Shaking chills ??? Stiffness or inability to move the knee ??? Increased swelling in your leg ??? Increased redness, tenderness, or swelling in or around the knee incision ??? Drainage from the knee incision ??? Increased knee pain ?? Last Reviewed Date: 2021 ?? [employer]. All rights reserved. This information is not intended as a substitute for professional medical care. Always follow your healthcare professional's instructions. ?? * Alma Delia Quintero RN: PERFORM Event Display: Patient Education Leaflets Authored Date: [id number] Cefadroxil Oral Capsule ?? 26158-160 Cefadroxil Oral Capsule Uses For treating bacterial infection. ?? Instructions If you have trouble swallowing this medicine, please ask your pharmacist if a liquid is available. You may take with food to prevent stomach upset. Store at room temperature away from heat, light, and moisture. Do not keep in the bathroom. If you forget to take a dose on time, take it as soon as you remember. If it is almost time for thenext dose, do not take the missed dose. Return to your normal dosing schedule. Do not take 2 doses of this medicine at one time. Drug interactions can change how medicines work or increase risk for side effects. Tell your healthcare providers about all medicines taken. Include prescription and zxjh-lln-buvnosp medicines, vitamins, and herbal medicines. Speak with your doctor or pharmacist before starting or stopping any medicine. Tell your doctor if symptoms do not get better or if they get worse. Keep using this medicine for the full number of days that it is prescribed. Do not stop the medicine even if you start to feel better. Do not take the medicine more than twice during 24 hours. ?? Cautions Tell your doctor and pharmacist if you ever had an allergic reaction to a medicine. Do not use the medication any more than instructed. Speak with your health care provider before receiving any vaccinations. Please tell your doctor if you have moderate to severe diarrhea while on this medicine. Do not treat the diarrhea with lsen-pee-wjrmvxe diarrhea medicine. Tell the doctor or pharmacist if you are , planning to be , or . Do not share this medicine with anyone who has not been prescribed this medicine. ?? Side Effects The following is a list of some common side effects from this medicine. Please speak with your doctor about what you should do if you experience these or other side effects. ??? diarrhea ??? nausea and vomiting ??? stomach upset or abdominal pain ??? yeast infection of mouth ??? vaginal itching or yeast infection Call your doctor or get medical help right away if you notice any of these more serious side effects: ??? increased risk of bleeding ??? severe, watery or bloody diarrhea ??? signs of liver damage (such as yellowing of eye or skin, dark urine, or unusual tiredness) ??? severe stomach or bowel pain ??? urinating less often ??? severe or persistent vomiting A few people may have an allergic reaction to this medicine. Symptoms can include difficulty breathing, skin rash, itching, swelling, or severe dizziness. If you notice any of these symptoms, seek medical help quickly. ?? Extra Please speak with your doctor, nurse, or pharmacist if you have any questions about this medicine. ?? [email or web address] IMPORTANT NOTE: This document tells you briefly how to take your medicine, but it does not tell youall there is to know about it. Your doctor or pharmacist may give you other documents about your medicine. Please talk to them if you have any questions. Always follow their advice. There is a more complete description of this medicine available in Swedish. Scan this code on your smartphone or tablet or use the web address below. You can also ask your pharmacist for a printout. If you have any questions, please ask your pharmacist. The display and use of this drug information is subject to Terms of Use. Copyright(c) 2021 [facility]. ?? [employer]. All rights reserved. This information is not intended as a substitute for professional medical care. Always follow your healthcare professional's instructions. ?? * Alma Delia Quintero RN: PERFORM Event Display: Patient Education Leaflets Authored Date: Hydromorphone Oral Tablet ?? 41176-785 Hydromorphone Oral Tablet Brands: Dilaudid Uses For pain. ?? Instructions This medicine may be taken with or without food. Store at room temperature away from heat, light, and moisture. Do not keep in the bathroom. Please ask your doctor, nurse, or pharmacist how to discard unused medicines safely. To reduce constipation, eat high fiber foods, drink plenty of water and exercise. Drug interactions can change how medicines work or increase risk for side effects. Tell your healthcare providers about all medicines taken. Include prescription and fhwi-qbz-tjbjhkd medicines, vitamins, and herbal medicines. Speak with your doctor or pharmacist before starting or stopping any medicine. Tell your doctor if symptoms do not get better or if they get worse. ?? Cautions This medicine has an opioid. Opioids help many people but may cause addiction, especially if used for a long time. The addiction risk is higher if you have a substance use disorder (overuse of or addiction to drugs or alcohol). Ask your doctor about the benefits and risks. Ask your doctor or pharmacist if you should have naloxone on hand to treat opioid overdose. Teach your family or household members about the signs of an opioid overdose and how to treat it. If you stop this medicine suddenly, after using it regularly for a long time, you may have withdrawal symptoms. Your doctor may ask you to slowly reduce your dose before stopping it. Tell your doctorright away if you notice any symptoms of withdrawal. Withdrawal symptoms can include unusual sweating, watering eyes, runny nose, chills, stomach pain, diarrhea, yawning, muscle aches, irritability, restlessness, anxiety, trouble sleeping, or thoughts of suicide. Tell your doctor and pharmacist if you ever had an allergic reaction to a medicine. Do not use the medication any more than instructed. This medicine may cause dizziness or fainting, especially after exercising or in hot weather. Be very careful when standing or sitting up quickly. If possible, avoid using with marijuana or other medicines that can cause dizziness or drowsiness. These include allergy/cold products, muscle relaxers, sleep aids, and pain relievers. Your ability to stay alert or to react quickly may be impaired by this medicine. Do not drive or operate machinery until you know how this medicine will affect you. Do not drink beverages with alcohol while on this medicine. This medicine passes into breast milk. Ask your doctor before . This medicine can hurt a new baby in the womb. If you become while on this medicine, tell your doctor immediately. Your doctor may switch you to a different medicine. This medicine should be used with caution in patients with breathing difficulties. Call your doctor right away if you notice slow or shallow breathing. Do not share this medicine with anyone who has not been prescribed this medicine. Some patients have serious side effects from this medicine. Ask your pharmacist to show you the information from the Food and Drug Administration (FDA) and discuss it with you. ?? Side Effects The following is a list of some common side effects from this medicine. Please speak with your doctor about what you should do if you experience these or other side effects. ??? decreased appetite ??? constipation ??? dizziness or drowsiness ??? dry mouth ??? feeling of heat or flushing ??? nausea and vomiting ??? stomach upset or abdominal pain If you have any of the following side effects, you may be getting too much medicine. Please contactyour doctor to let them know about these side effects. ??? changes in memory, mood, or thinking ??? fainting ??? slow heartbeat Call your doctor or get medical help right away if you notice any of these more serious side effects: ??? decreased awareness or responsiveness ??? breathing interruption during sleep ??? shallow, irregular breathing ??? hallucinations (unusual thoughts, seeing or hearing things that are not real) ??? fast or irregular heart beats ??? seizures ??? severe stomach or bowel pain ??? unusual or unexplained tiredness or weakness ??? difficulty or discomfort urinating ??? weight loss A few people may have an allergic reaction to this medicine. Symptoms can include difficulty breathing, skin rash, itching, swelling, or severe dizziness. If you notice any of these symptoms, seek medical help quickly. ?? Extra Please speak with your doctor, nurse, or pharmacist if you have any questions about this medicine. ?? [email or web address]/fdbpem/850 IMPORTANT NOTE: This document tells you briefly how to take your medicine, but it does not tell youall there is to know about it. Your doctor or pharmacist may give you other documents about your medicine. Please talk to them if you have any questions. Always follow their advice. There is a more complete description of this medicine available in Swedish. Scan this code on your smartphone or tablet or use the web address below. You can also ask your pharmacist for a printout. If you have any questions, please ask your pharmacist. The display and use of this drug information is subject to Terms of Use. Copyright(c) 2021 [facility]. ?? [employer]. All rights reserved. This information is not intended as a substitute for professional medical care. Always follow your healthcare professional's instructions. ?? EKG study * Event Display: EKG Authored Date: Hospital Progress note * Alma Delia Quintero RN: SIGN, MODIFY, PERFORM, SIGN, VERIFY Event Display: Progress Note Hospital Authored Date: Patient: FRANKLIN HARRISON Age: 56 years Sex: Female : 1965 Associated Diagnoses: None Author: Alma Delia Quintero RN Findings Problem Related to Alteration in Musculoskeletal : Alteration in Musculoskeletal Func/new 07/18/2022 12:00 EST Alteration in Musculoskeletal Related to Mobility, Orthopedic Procedure, Totaljoint replacement, Other: s/p L TKR 07/17 Goals & Outcomes, Musculoskeletal Affected extremity will maintain color/motion/sensation, Pt able to perform ADL's to best of ability, Pt demonstrates precautions/exercise/ transfers per protocol, Pt will ambulate safely with assistive device, Pt will be free from complications of immobility, Pt will demonstrate ability to participate in ADL's, Pt will report acceptable level of comfort/painrelief Interventions, Musculoskeletal Monitor patients ambulation status, monitor Color/Motion/Sensation, Assist with repositioning, Encourage deep breathing & coughing exercises, Notify MD immediately if tissue perfusion deteriorates, Teach & Encourage use of Incentive spirometer, Teach pt/caregiver on use of pain scale, Teach Pt/caregiver complications of immobility, Teach Pt/caregiver techniques to increase mobility, Teach Pt/caregiver on safety precautions, Incision care as ordered, Instruct pt on gait training, [place] Pt/caregiver to Total Knee Replacement protocol BH Goals/Interventions, Musculoskeletal Yes Musculoskeletal, Problem Start 07/17/2022 17:58 Reviewed Plan with, Musculoskeletal Patient Patient Progression, Musculoskeletal Pt progressing according to plan . Nursing Data Vital Signs : VITAL SIGNS SECTION 07/18/2022 11:39 EST Early Warning Score 2.00 07/18/2022 11:39 EST Temperature 98.2 DegF Temperature Route Oral Pulse Rate 51 bpm L Respiratory Rate 18 br/min Systolic Blood Pressure 105 mm Hg Diastolic Blood Pressure 51 mm Hg L Blood pressure sites Arm, right Mean Arterial Pressure 69 mm Hg Pulse Pressure 54 mm Hg Oxygen Saturation 91 % L Mode of Delivery (Oxygen) Room air 07/18/2022 7:50 EST Early Warning Score 2.00 07/18/2022 7:50 EST Temperature 98.1 DegF Temperature Route Oral Pulse Rate 53 bpm L Respiratory Rate 18 br/min Systolic Blood Pressure 109 mm Hg Diastolic Blood Pressure 73 mm Hg Blood pressure sites Arm, left Mean Arterial Pressure 85 mm Hg Pulse Pressure 36 mm Hg Oxygen Saturation 95 % Mode of Delivery (Oxygen) Room air . Evaluation 56 yo female patient s/p left TKR PoD1; A&Ox3. Lungs with wheezing; denies SOB. Inhaler used asordered. Patient on telemetry, SB in the 50s; denies CP. +BSx4, abd SNT; LBM 07/17. Tolerating diabetic carb diet, denies N/V. Patient is a POC, insulin administered per sliding scale. Voiding in bathroom; OOB 1 assist with walker. Patient cleared from KI per PT. Aquacel left knee C/D/I. +PP, +CMS,+d/p flexion. Patient endorsing pain 7/10; 4mg dilaudid given as ordered as well as 15mg IVP toradol x1; +relief per patient. Cefazolin administered as ordered. Coumadin/lovenox bridge and c-boots for DVT prophylaxis. Discharge plan to home with [facility]. Patient resting in chair, no complaints at thistime. Call pelaez within reach, no new orders/changes at this time.. Discharge Information Case Management Discharge Plan : Case Management Discharge Plan Data 07/17/2022 15:19 EST Discharge Level of Care at Discharge Homehealth/VNA Discharge VNA/Hospice/Home Care [facility] Service Categories #1 Blood work, Physical Therapy, Other: Coumadin Monitoring Fingerstick PT/INR's Service Comments #1 The VNA will call you the day after you are discharged to set up a visit time. If you do not hear from them, please call them at [facility] Rehabilitation Discharge : Rehab Discharge Index 07/18/2022 8:39 EST Full chart review completed Not Done: Task Duplication (Not Done) * Alma Delia Quintero RN: PERFORM Event Display: Progress Note Hospital Authored Date: Discharge instructions reviewed with patient verbalizing understanding; signed and placed in chart.IV D/C without incident; catheter tip intact, DSD applied. * Rob Evans DO: VERIFY, PERFORM, SIGN Event Display: Progress Note Hospital Authored Date: Patient: FRANKLIN HARRISON Age: 56 years Sex: Female : 1965 Associated Diagnoses: None Author: Rob Evans DO Block Information Procedure Date:??07/17/22 Procedure: Spinal??and left adductor canal block Injection Site: Bruising: None Redness: None Swelling: None Tenderness: None Block site: Clean and Dry Block Duration: Motor Blockade: Resolved Sensory Blockade: Resolved Patient Satisfaction: Were you satisfied with your block/procedure? Yes Would you have a block/procedure in the future? Yes Patient Follow-up: None, Block Resolved * Yonatan Baxter RN: PERFORM, SIGN, VERIFY Event Display: Progress Note Hospital Authored Date: Patient: FRANKLIN HARRISON Age: 56 years Sex: Female : 1965 Associated Diagnoses: None Author: Yonatan Baxter RN Findings Narrative/Incidental pt is A/O4 w/ VSS on RA. denies c/o n/v or sob. does c/o pain - dilaudid given. pt is Ax1 w/ RW to the bathroom w/ knee immobilizer. +CMS D/P PP. L arm IV. diabetic diet w/ FS 3x/day and VS Q4. pt resting in bed, will continue to monitor. . Discharge Information Case Management Discharge Plan : Case Management Discharge Plan Data 07/17/2022 15:19 EST Discharge Level of Care at Discharge Homehealth/VNA Discharge VNA/Hospice/Home Care [facility] Service Categories #1 Blood work, Physical Therapy, Other: Coumadin Monitoring Fingerstick PT/INR's Service Comments #1 The VNA will call you the day after you are discharged to set up a visit time. If you do not hear from them, please call them at [facility] XR Knee - left 1 or 2 Views * BHSPowerscribe , CIS S: TRANSCRIBE Shahnaz Ross MD: VERIFY Event Display: Result: Authored Date: [id number] Knee 1 or 2 Views Left, 2 views Reason: Postop; Clinical Question(s): Other:; Implant Position; Special Instructions: Do today at 2200, No flexed knee in the lateral position. Keep leg straight; 2 Views COMPARISON: 03/21/2020. FINDINGS: Status post total knee arthroplasty with normal alignment of the hardware. No acute fracture. Expected soft tissue swelling and emphysema about the knee. IMPRESSION: Status post total knee arthroplasty without evidence of hardware failure or complication. WSN: [id number] Ordering Physician: Antonina Johnson Dictated By: Shahnaz Ross MD Dictated Date/Time: 07/17/22 10:56 p Reviewed By: Shahnaz Ross MD Signed By: Shahnaz Ross MD Signed Date/Time: 07/17/22 10:56 pm Transcribed By: MILADYS Transcribed Date/Time: 07/17/22 10:56 pm Patient Care team information Care Team Personnel Name: Sandra Wills NP Position: [facility] PCO Associate Professional Member Role: Primary Care Nurse Address: Address: [address] [place] [address] [place] [address]- [place] Name: Marley Alejo RN Position: [facility] RN Member Role: Primary Care Nurse Name: Eulogio Nickerson MD Position: [facility] Primary Care Physician Member Role: PCP Address: Address: [address] [place] [address]- [place] Name: Alma Delia Fonseca PharmD Position: [facility] Associate Professional Member Role: Lifetime Consulting Provider Address: Address: [address] [place] [address] [facility] [place] [address]- [place] Name: Yolis Mattson RN Position: S RN Member Role: Primary Care Nurse Name: Priscila Garzon RN Position: S RN Member Role: Primary Care Nurse Name: Renea Mart RN Position: S RN Member Role: Primary Care Nurse Care Team Related Persons Name: FAUZIA JANSEN Address: home [address] [place] [address] Name: AURELIA SHETH Address: [address] [place] [address] Name: BRE OSORIO Address: home [address] [place] [address]
--- OUTSIDE RECORDS SUMMARY | 2024-01-02 21:24 | XMS_ITS | Continuity of Care Document ---
Author Organization [facility] Robin Jane Nolberto lt Address [address] [place] [address]- Care Team Providers Care Reports Analyst Name Role Phone Radha GRIDER, Fuentes Kenny Primary Care Physician Encounter [facility] Date(s): 08/23/20 - 09/22/20 [facility] Adult [address] [place] [address]- Allergies, Adverse Reactions, Alerts Substance Reaction Severity Status Adhesive Bandage Active Dust copd exac/sinus congestion A ctive Immunizations Given and Recorded Vaccine Date Status Refusal Reason influenza virus vaccine, inactivated 1 04/30/20 Gi octvaio influenza virus vaccine, inactivated 2 05/23/19 Gi [...] H1N1, inactive(oldterm) 8 05/08/11 Given 1Result Comment: [id number] 2Result Comment: [id number] 3Result Comment: [07/08/2017] 72940-875-31 4Admin Note: [facility] 5Admin Note: [facility] [...] 5 Refills, Maintenance, 07/03/20 9:16:00 EST, Cream, [facility] #[id number], Partial fill upon patient request if the [...] 06/04/20 12:56:00 EST, Route to Pharmacy Electronically, [facility] #[id number], please schedule appt for further refills, 165, cm, 05/16/20 14:15:00 EDT, Hei... Start Date: 06/04/20 Status: Ordered Claritin 10 mg oral tablet 10 mg, 1, tablet, By Mouth, Daily, for 90 days, # 90 tablet, Refills 3, Tot. Refills 3, Acute 07/28/21 15:22:00 EST, 08/02/20 15:22:00 EST, Route to Pharmacy Electronically, [facility] #[id number], 165, cm, 07/31/20 14:32:00 EST, Height, 127, kg,... Start Date: 08/02/20 Stop Date: 07/28/21 Status: Ordered colchicine 0.6 mg oral tablet See Instructions, take 1 tablet by mouth once daily if needed for PSEUDOGOUT pain, # 30 tablet, Refills 5, Tot. Refills 5, Soft Stop, 01/05/20 8:41:00 EDT, Instructions Replace Required Details, Route to Pharmacy Electronically, [facility] #... Start Date: 01/05/20 Status: Ordered Disposable [...] Gm, 3 Refills, Maintenance, 06/22/20 14:58:00 EST, [facility] #[id number], 165, cm, 06/07/20 13:52:00 EST, Height, 127, [...] mL, 5 Refills, Maintenance, 10/01/18 10:08:42 EST, [place], 2 sprays Nares, Both 2 times a [...] 08/02/20 16:13:00 EST, Route to Pharmacy Electronically, [facility] #[id number], D/C RX ON FILE FOR ABRAM, 165, [...] 09/29/20 14:57:00 EST, 07/31/20 14:57:00 EST, Capsule, [facility] #[id number], Partial fill upon patient request if the prescription is for a schedule II opi... Start Date: 07/31/20 Stop Date: 09/29/20 Status: Ordered methenamine hippurate 1 gm oral tablet 1 tablet = 1 Gm, By Mouth, 2 times a day, # 60 tablet, 1 Refills, Maintenance, 07/12/20 13:56:00 EST, [facility] #[id number], Partial fill upon patient request if the prescription is for a schedule II opioid drug., 165, cm, 07/11/20 15:24:00 EST,... Start Date: 07/12/20 Stop Date: 07/05/21 Status: Ordered metoprolol 25 mg oral tablet 25 mg, 1, tablet, By Mouth, 2 times a day, # 60 tablet, Refills 5, Tot. Refills 5, Maintenance, 09/22/20 13:59:00 EST, Route to Pharmacy Electronically, [facility] #[id number], 165, cm, 07/31/2113:32:00 EST, Height, 127, kg, [...] 0 Refills, Maintenance, 06/18/20 16:57:00 EST, Patch, [facility] #[id number], Partial fill upon patient request, 165, cm, 06/07/20 13:52:00 EST, Height, 127, kg, 02/03/20 14:39:00 EDT, Dry Weight Start Date: 06/18/20 Stop Date: 07/30/20 Status: Ordered NuLYTELY with Flavor Packs oral powder for reconstitution See Instructions, Drink 240mL every 15-20 minutes until first half is gone. Repeat 6 hours prior toprocedure., # 4,000 mL, 0 Refills, Maintenance, 06/28/20 17:09:00 EST, [facility] #[id number],Partial fill upon patient request if the prescript... Start Date: 06/28/20 Status: Ordered oxyCODONE 10 mg oral tablet 1 tablet = 10 mg, By Mouth, Every 8 hours, DX Z79.891 G89.29 M47.816 OK TO FILL LESS THAN PRESCRIBED AMOUNT, # 84 tablet, 0 Refills, Maintenance, 09/10/20 17:26:00 EST, Tablet, [facility] #[id number], 09/11/20, 165, cm, 07/31/20 14:32:00 EST, He... [...] 5 Refills, Maintenance, 04/30/20 15:13:00 EDT, Tablet, [facility] #[id number], 165, cm, 04/30/20 14:30:00 EDT, Height, 127, kg, 02/03/20 14:39:00 EDT, Dry Weight Start Date: 04/30/20 Status: Ordered rosuvastatin 10 mg oral tablet 1 tablet = 10 mg, By Mouth, Daily, # 90 tablet, 3 Refills, Maintenance, 05/03/20 16:35:00 EDT, Tablet, [facility] #[id number], d/c rx for capsules, 165, cm, 04/30/20 14:30:00 EDT, Height, 127, kg, 02/03/20 14:39:00 EDT, Dry Weight Start Date: 05/03/20 Status: Ordered Ventolin HFA 108 mcg/inh inhalation aerosol with adapter 2 puffs, Inhalation, Every 4 hours, PRN Wheezing/Shortness of Breath, # 1 each, 11 Refills, Soft Stop, 01/19/20 11:46:00 EDT, [facility] #[id number], 165, cm, 01/16/20 6:17:00 EDT, Height, 128.1, kg, 01/16/20 6:17:00 EDT, Dry Weight Start Date: 01/19/20 Status: Ordered warfarin 5 mg oral tablet 1 tablet = 5 mg, By Mouth, Daily, dosing subject to change pending inr lab values, # 30 tablet, 11 Refills, Maintenance, 08/31/20 15:36:00 EST, Tablet, [facility] #[id number], 165, cm, 07/31/20 14:32:00 EST, Height, 127, [...]
--- OUTSIDE RECORDS SUMMARY | 2024-01-02 21:24 | XMS_ITS | Continuity of Care Document ---
Author Organization [facility] Robin Jane Nolberto Address [address] [place] [address]- Care Team Providers Care Rn Surgical Pcu Name Role Phone Kyle Ahumada DO Primary Care Physician [phone] Encounter [facility] Date(s): 08/10/23 - 09/09/23 [facility] Robin Bolañosley Adult [address] [place] [address]- Allergies, Adverse Reactions, Alerts Substance Reaction Severity [...] vaccine, inactivated 05/10/07 Jarrett rded SARS-CoV-2 mRNA (etpuwwc-yyus-tfwjx) vax 08/30/21 Recorded SARS-CoV-2 (COVID-19) mRNA BNT-162b2 vac 01/02/21 Recorded SARS-CoV-2 (COVID-19) mRNA BNT-162b2 vac 12/02/20 Recorded Fluvirin (oldterm) 10 03/22/15 Given Fluzone Preservative-Free (oldterm) 11 03/12/12 Gi octavio pneumococcal 23-valent vaccine 10/08/11 Given tetanus/diphtheria/pertussis, acel(Tdap) 09/08/11 Given tetanus/diphtheria/pertussis, acel(Tdap) 12/17/06 Recorded influ virus vac, H1N1, inactive(oldterm) 12 05/08/11 Given hepatitis B adult vaccine 06/14/02 Recorded 1Result Comment: PCV 20 [facility]#[id number] 2Result Comment: Flu [facility]#41067-027-20 3Result Comment: [id number] 4Result Comment: [id number] 5Result Comment: [id number] 6Result Comment: [id number] 7Result Comment: [07/08/2017] [id number] 8Admin Note: [facility] 9Admin Note: [facility] 9-13 10Admin Note: Given at [facility] 11Admin Note: 03-11-12 GIVEN AT [facility] 12Admin Note: rcvd elsewhere Medications Albuterol (Eqv-ProAir HFA) 90 mcg/inh inhalation aerosol 2 puffs, Inhalation, Every 4 hours, PRN NEEDED FOR WHEEZING OR FOR SHORTNESS OF BREATH (BULK), #8.5 Gm, 5 Refills, Maintenance, 07/25/23 11:45:00 EST, [facility], 17, INHALE 2 PUFFS BY MOUTH EVERY 4 HOURS NEEDED FOR WHEEZING OR FOR SHOR... Start Date: 07/25/23 Status: Ordered cloNIDine 0.1 mg oral tablet 1, tablet, By Mouth, 2 times a day, PRN, ANXIETY (VIAL., # 56 tablet, Refills 2, Maintenance, NEEDED, 07/25/23 11:44:00 EST, Route to Pharmacy Electronically, [facility], 160, cm, 07/07/2315:02:00 EST, Height, 112.4, kg, 06/24/23 17:38:00... Start Date: 07/25/23 Status: Ordered cyclobenzaprine 5 mg oral tablet 1 tablet, By Mouth, 3 times a day, PRN NEEDED, SPASM (VIAL., # 90 tablet, 3 Refills, Maintenance, 08/19/23 10:07:00 EST, [facility], 160, cm, 07/07/23 15:02:00 EST, Height, 112.4, kg, 06/24/23 17:38:00 EST, Dry Weight Start Date: 08/19/23 Status: Ordered docusate sodium 100 mg oral capsule 100 mg, 1, capsule, By Mouth, 2 times a day, hold for loose stool, # 180 capsule, Refills 3, Tot. Refills 3, Maintenance, 03/13/23 16:56:00 EDT, Route to Pharmacy Electronically, [facility], Partial fill upon patient request if the prescriptio... Start Date: 03/13/23 Stop Date: 04/12/23 Status: Ordered duloxetine 20 mg oral enteric coated capsule 2 capsule = 40 mg, By Mouth, Daily at bedtime, # 60 capsule, 11 Refills, Maintenance, 06/25/21 12:00:00 EST, Capsule, [facility], Partial fill upon patient [...] Replace Required Details, Route to Pharmacy Electronically, [facility], 160, cm, 07/07/23 15:02:00 EST, Height,... Start Date: 07/28/23 Status: Ordered furosemide 40 mg oral tablet 40 mg, 1, tablet, By Mouth, Daily, # 90 tablet, Refills 1, Tot. Refills 1, Maintenance, 03/02/23 18:12:00 EDT, Route to Pharmacy Electronically, [facility], Partial fill upon patient request if the prescription is for a schedule II opioid drug... Start Date: 03/02/23 Status: Ordered gabapentin 300 mg oral capsule 300 mg, 1, capsule, By Mouth, 3 times a day, # 90 capsule, Refills 2, Tot. Refills 2, Maintenance, 09/09/23 17:17:00 EST, Route to Pharmacy Electronically, [facility], Partial fill upon patient request [...] mL, 11 Refills, Maintenance, 08/11/23 7:46:00 EST, [facility], 30, INSTILL 2 SPRAYS IN [...] 07/01/23 14:32:00 EST, Route to Pharmacy Electronically, [facility], 160, cm, 06/26/23 11:21:00 EST, Height, 112.4, kg, 06/24/23 17:38:00 EST, Dry Weight Start Date: 07/01/23 Status: Ordered metFORMIN 500 mg oral tablet 1 tablet = 500 mg, By Mouth, 2 times a day, # 60 tablet, 5 Refills, Maintenance, 07/07/23 15:26:00 EST, Tablet, [facility], Partial fill upon patient request if the prescription is for a schedule II opioid drug., 160, cm, 07/07/23 15:02:00 EST... Start Date: 07/07/23 Stop Date: 01/03/24 Status: Ordered nicotine 21 mg/24 hr transdermal film, extended release 1 patch, Topically, Daily, # 30 patch, 3 Refills, Maintenance, 06/08/23 9:15:00 EST, [facility], 30, APPLY 1 PATCH TOPICALLY [...] tablet, 5 Refills, Maintenance, 08/19/23 10:06:00 EST, [facility], 160, cm, 07/07/23 15:02:00 EST, Height, 112.4, kg, 06/24/23 17:38:00 EST,Dry Weight Start Date: 08/19/23 Status: Ordered rOPINIRole 0.5 mg oral tablet 1 tablet, By Mouth, 3 times a day, ^1R1,1R3,1R4., # 90 tablet, 5 Refills, Maintenance, 05/09/23 20:56:00 EDT, [facility], 160, cm, 04/02/23 12:45:00 EDT, Height, 98.8, kg, 07/17/22 8:58:00 EST, Dry Weight Start Date: 05/09/23 Status: Ordered rosuvastatin 10 mg oral tablet 1 tablet, By Mouth, Daily, ^1R1., # 30 tablet, 5 Refills, Maintenance, 07/01/23 14:33:00 EST, [facility], 160, cm, 06/26/23 11:21:00 EST, Height, 112.4, kg, 06/24/23 17:38:00 EST, Dry Weight Start Date: 07/01/23 Status: Ordered Symbicort 160mcg/4.5mcg Inhaler 2, puffs, Inhalation, 2 times a day, # 10.2 Gm, Refills 11, Tot. Refills 11, Maintenance, 06/03/23 11:47:00 EST, Aerosol, Route to Pharmacy Electronically, NCPDP_[id number], [facility], 160, cm, 06/03/23 11:30:00 EST, Height, 98.8, kg, ... Start Date: 06/03/23 Status: Ordered Xarelto 20 mg oral tablet 1 tablet, By Mouth, Daily in PM, ^1R4., # 30 tablet, 5 Refills, Maintenance, 08/11/23 11:28:00 EST,[facility], 160, cm, 07/07/23 15:02:00 EST, [...] Confirmed Active Gastric banding status Confirmed Active emt intermediate current use of opiate analgesic Confirmed [...] Member Role: Primary Care Nurse Address: Address: [address] [place] [address] [place] [address]- [place] Name: Marley Alejo RN Position: [facility] ED RN W/OE and Tasks Member Role: Primary Care Nurse Name: Rashi Dewitt RN Position: [facility] RN Member Role: Primary Care Nurse Name: Alma Delia Fonseca PharmD Position: [facility] Associate Professional Member Role: Lifetime Consulting Provider Address: Address: [address] [facility] [place] [address]- [place] Name: Yolis Mattson RN Position: [facility] RN Member Role: Primary Care Nurse Name: Priscila Garzon RN Position: [facility] RN Member Role: Primary Care Nurse Name: Kyle Ahumada DO Position: [facility] Physician - Primary Care Member Role: PCP Address: Address: [address] [facility] [place] [address]- [place] Name: Renea Mart RN Position: [facility] RN Member Role: Primary Care Nurse Care Team Related Persons Name: FAUZIA JANSEN Address: home [address] [place] [address] Name: AURELIA SHETH Address: home [address] [place] [address] Name: BRE OSORIO Address: [address] [place] [address]
--- OUTSIDE RECORDS SUMMARY | 2024-01-02 21:25 | XMS_ITS | Continuity of Care Document ---
Author Organization [facility] Buck Nolberto lt Address [address] [place] [address]- Care Team Providers Care Keeper Head Name Role Phone Krishan GRIDER, Eulogio Molina Primary Care Physician [place] [facility]24[place] - 02/23/22 [facility] Robin Bolañosley Adult [address] [place] [address]- Attending Physician: Admtr, Ar8 Admitting Physician: Admtr, Ar8 Referring Physician: Admtr, Ar8 Allergies, Adverse Reactions, Alerts Substance Reaction Severity Status Adhesive Bandage Active Dust copd exac/sinus congestion A ctive Immunizations Given and Recorded Vaccine Date Status Refusal Reason SARS-CoV-2 mRNA (vjtcjgo-avoe-pqhmr) vax 08/30/21 Recorded influenza virus vaccine, inactivated [...] B adult vaccine 06/14/02 Recorded 1Result Comment: [id number] 2Result Comment: [id number] 3Result Comment: [id number] 4Result Comment: [07/08/2017] [id number] 5Admin Note: [facility] 6Admin Note: [facility] [...] 8.5 Gm, 5 Refills, 05/29/21 17:13:00 EDT, [email or web address] #[id number], 17, INHALE 2 PUFFS BY MOUTH EVERY [...] 0 Refills, Maintenance, 01/11/22 7:25:00 EDT, Capsule, [facility], Partial fill upon patient request if the prescription is for a schedule II opioid drug., 159, cm, 01/11/22 6:35:0... Start Date: 01/11/22 Stop Date: 02/10/22 Status: Ordered cloNIDine 0.1 mg oral tablet See Instructions, TAKE 1 TABLET BY MOUTH TWICE A DAY NEEDED FOR FOR ANXIETY (VIAL), # 60 tablet,Refills 2, Instructions Replace Required Details, Route to Pharmacy Electronically, [facility], 159, cm, 01/11/22 15:15:00 EDT, Height, 98.8, k... Start Date: 02/07/22 Status: Ordered colchicine 0.6 mg oral tablet 0.6 mg, 1, tablet, By Mouth, Daily, # 30 tablet, Refills 11, Tot. Refills 11, Maintenance, :00:00 EDT, Route to Pharmacy Electronically, [facility], Partial fill upon patient request if [...] 01/11/22 7:25:00 EDT, Route to Pharmacy Electronically, [facility], Partial fill upon patient request if the prescri... Start Date: 01/11/22 Stop Date: 02/10/22 Status: Ordered duloxetine 20 mg oral enteric coated capsule 2 capsule = 40 mg, By Mouth, Daily at bedtime, # 60 capsule, 11 Refills, Maintenance, 06/25/21 12:00:00 EST, Capsule, [facility], Partial fill upon patient request if [...] Replace Required Details, Route to Pharmacy Electronically, [facility], 165, cm, 06/25/21 11:35:00 EST, Height, [...] 12/11/21 13:41:00 EDT, Route to Pharmacy Electronically, [facility], Partial fill upon patient requestif the [...] 03/05/22 16:36:00 EDT, 12/03/21 16:35:00 EDT, Gum, [email or web address] #[id number], Partial fill uponpatient request if the prescription [...] CELLULITIS PROPHYLAXIS., # 60 tablet, 6 Refills, [facility], 165, cm, 11/08/21 10:02:00 EDT, Height, 127, kg, 02/03/20 14:39:00 EDT, Dry Weight Start Date: 11/15/21 Status: Ordered rOPINIRole 0.5 mg oral tablet 1 tablet, By Mouth, 3 times a day, # 90 tablet, 5 Refills, 11/08/21 9:01:00 EDT, [facility], 165, cm, 11/04/21 8:42:00 EDT, Height, 127, kg, 02/03/20 14:39:00 EDT, Dry Weight Start Date: 11/08/21 Status: Ordered rosuvastatin 10 mg oral tablet See Instructions, TAKE 1 TABLET BY MOUTH DAILY, # 90 tablet, 1 Refills, Maintenance, 10/18/21 21:30:00 EDT, [facility], 165, cm, 09/04/21 14:01:00 EST, Height, [...] Replace Required Details, Route to Pharmacy Electronically, [id number], [facility], 159, cm, 01/11/22 15:15:00 EDT... Start Date: 02/13/22 Status: Ordered warfarin 1 mg oral tablet See Instructions, Take 1-10 tablets By Mouth Daily as directed by THOM, # 150 tablet, 0 Refills, Maintenance, 01/11/22 7:24:00 EDT, Tablet, [facility], Partial fill upon patient requestif [...]
--- OUTSIDE RECORDS SUMMARY | 2024-01-02 21:25 | XMS_ITS | Continuity of Care Document ---
Author Organization [facility] Buck Nolberto Address [address] [place] [address]- Care Team Providers Care Flat Clothier Name Role Phone Krishan GRIDER, Eulogio Molina Primary Care Physician [facility] Date[facility]): 07[facility]07[facility]22 - 08/06/22 [facility] Robin Bolañosley Adult [address] [place] [address]- Allergies, Adverse Reactions, Alerts Substance Reaction Severity [...] vaccine, inactivated 05/10/07 Jarrett rded SARS-CoV-2 mRNA (vdxilwn-byhu-jpasd) vax 08/30/21 Recorded SARS-CoV-2 (COVID-19) mRNA BNT-162b2 vac 01/02/21 Recorded SARS-CoV-2 (COVID-19) mRNA BNT-162b2 vac 12/02/20 Recorded Fluvirin (oldterm) 8 03/22/15 Given Fluzone Preservative-Free (oldterm) 9 03/12/12 Giv en pneumococcal 23-valent vaccine 10/08/11 Given tetanus/diphtheria/pertussis, acel(Tdap) 09/08/11 Given tetanus/diphtheria/pertussis, acel(Tdap) 12/17/06 Recorded influ virus vac, H1N1, inactive(oldterm) 10 05/08/11 Given hepatitis B adult vaccine 06/14/02 Recorded 1Result Comment: [id number] 2Result Comment: [id number] 3Result Comment: [id number] 4Result Comment: [id number] 5Result Comment: [07/08/2017] [id number] 6Admin Note: [facility] 7Admin Note: [facility] [...] Gm, 4 Refills, Maintenance, 04/28/22 13:11:00 EDT, [facility], 17, INHALE 2 PUFFS BY [...] Maintenance, :00:00 EDT, Route to Pharmacy Electronically, [facility], Partial fill upon patient request if the prescription is for a schedule II opioid dr... Start Date: 10/30/21 Status: Ordered docusate sodium 100 mg oral capsule 100 mg, 1, capsule, By Mouth, 2 times a day, hold for loose stool, # 60 capsule, Refills 0, Tot. Refills 0, Maintenance, 01/11/22 7:25:00 EDT, Route to Pharmacy Electronically, [facility], Partial fill upon patient request if the prescri... Start Date: 01/11/22 Stop Date: 02/10/22 Status: Ordered duloxetine 20 mg oral enteric coated capsule 2 capsule = 40 mg, By Mouth, Daily at bedtime, # 60 capsule, 11 Refills, Maintenance, 06/25/21 12:00:00 EST, Capsule, [facility], Partial fill upon patient [...] 07/17/22 17:07:00 EST, Route to Pharmacy Electronically, [facility], 160, cm, 07/17/22 12:03:00 EST, [...] tablet, 5 Refills, Maintenance, 07/24/22 23:41:00 EST, [facility], 160, cm, 07/18/22 11:39:00 EST, [...] Gm, 5 Refills, Maintenance, 07/17/22 11:09:00 EST, [facility], 160, cm, 07/17/22 8:49:00 EST, Height, 98.8, kg, 07/17/22 8:58:00 EST, Dry Weight Start Date: 07/17/22 Status: Ordered Symbicort 80mcg/4.5mcg Inhaler See Instructions, INHALE 2 PUFFS BY MOUTH TWICE A DAY RINSE MOUTH AND THROAT AFTER USE, # 10.2 Gm, Refills 5, Maintenance, 07/30/22 21:16:00 EST, Instructions Replace Required Details, Route to Pharmacy Electronically, MIPDP_[id number], [facility]... Start Date: 07/30/22 Status: Ordered warfarin 1 mg oral tablet See Instructions, Take 1-10 tabs daily as directed by NEOS., # 150 tablet, 0 Refills, Maintenance, 07/18/22 8:55:00 EST, Tablet, [facility], Partial fill upon patient [...] Personnel Name: Sandra Wills NP Position: [facility] PCO Associate Professional Member Role: Primary Care Nurse Address: Address: [address] [place] [address] [place] [address]- Name: Marley Alejo RN Position: [facility] RN Member Role: Primary Care Nurse Name: Eulogio Nickerson MD Position: [facility] Primary Care Physician Member Role: PCP Address: Address: [address] [place] [address]- Name: Alma Delia Fonseca PharmD Position: [facility] Associate Professional Member Role: Lifetime Consulting Provider Address: Address: [address] [place] [address] Coumadin [place], [place] [address] Name: Yolis Mattson RN Position: [facility] RN Member Role: Primary Care Nurse Name: Prisclia Garzon RN Position: [facility] RN Member Role: Primary Care Nurse Name: Renea Mart RN Position: [facility] RN Member Role: Primary Care Nurse Care Team Related Persons Name: FAUZIA JANSEN Address: home [address] [place] [address] Name: AURELIA SHETH Address: home [address] [place] [address] Name: BRE OSORIO Address: home [address] [place] [address]
--- OUTSIDE RECORDS SUMMARY | 2024-01-02 21:25 | XMS_ITS | Continuity of Care Document ---
Author Organization [facility] Robin Jane Nolberto Address [address] [place] [address]- Care Team Providers Care Teller Head Name Role Phone Fuentes Garcia MD Primary Care Physician [phone] [facility] Date[facility]s): 01/30/20 - 02/29/20 [facility] Robin Bolañosley Adult [address] [place] [address]- [facility] Allergies, Adverse Reactions, Alerts Substance Reaction [...] H1N1, inactive(oldterm) 7 05/08/11 Given 1Result Comment: [id number] 2Result Comment: [07/08/2017] [id number] 3Admin Note: [facility] 4Admin Note: [facility] [...] 12/06/19 9:16:00 EDT, Route to Pharmacy Electronically, [facility] #[id number], please schedule appt for further refills, 162, cm, 09/21/19 12:01:00 Laurie SPAIN... Start Date: 12/06/19 Status: Ordered Claritin 10 mg oral tablet 10 mg, 1, tablet, By Mouth, Daily, for 30 days, # 30 tablet, Refills 11, Tot. Refills 11, Acute 05/11/20 17:36:41 EDT, 05/17/19 17:36:41 EDT, Route to Pharmacy Electronically, NCPDP_[id number], [facility] [address] Start Date: 05/17/19 Stop Date: 05/11/20 Status: Ordered colchicine 0.6 mg oral tablet See Instructions, take 1 tablet by mouth once daily if needed for PSEUDOGOUT pain, # 30 tablet, Refills 5, Tot. Refills 5, Soft Stop, 01/05/20 8:41:00 EDT, Instructions Replace Required Details, Route to Pharmacy Electronically, [facility] #... Start Date: 01/05/20 Status: Ordered Disposable [...] Gm, 1 Refills, Maintenance, 12/20/19 16:30:00 EDT, [facility] #[id number], 162, cm, 09/21/19 12:01:00 EST, Height, 116.4, [...] mL, 5 Refills, Maintenance, 10/01/18 10:08:42 EST, [facility], 2 sprays Nares, Both 2 times a [...] 09/28/19 11:53:00 EST, Route to Pharmacy Electronically, [facility] #[id number], 162, cm, 09/21/2011:01:00 EST, Height, 116.4, kg, [...] 0 Refills, Maintenance, 02/27/20 16:58:00 EDT, Tablet, [facility] #[id number], 02/28/20, 165, cm, 02/03/20 14:39:00 EDT, He... [...] 11 Refills, Soft Stop, 01/19/20 11:46:00 EDT, [id number], 165, cm, 01/16/20 6:17:00 EDT, Height, 128.1, kg, 01/16/20 6:17:00 EDT, Dry Weight Start Date: 01/19/20 Status: Ordered warfarin 5 mg oral tablet 1 tablet = 5 mg, By Mouth, Daily, dosing subject to change pending inr lab values, # 30 tablet, 5 Refills, Maintenance, 02/15/20 13:21:00 EDT, Tablet, [facility] #[id number], 165, cm, 02/03/20 14:39:00 EDT, Height, 127, [...]
--- OUTSIDE RECORDS SUMMARY | 2024-01-02 21:25 | XMS_ITS | Continuity of Care Document ---
Author Organization [facility] Nolberto Address [address] [place] [address]- Care Team Providers Care Transfer And Pumphouse Operator Name Role Phone Krishan GRIDER, Eulogio Molina Primary Care Physician [phone] Encounter [facility] Date(s): 12/26/21 - 01/25/22 [facility] Adult [address] [place] [address]- Allergies, Adverse Reactions, Alerts Substance Reaction Severity Status Adhesive Bandage Active Dust copd exac/sinus congestion A ctive Immunizations Given and Recorded Vaccine Date Status Refusal Reason SARS-CoV-2 mRNA (vxdnmza-smyp-eooni) vax 08/30/21 Recorded influenza virus vaccine, inactivated [...] B adult vaccine 06/14/02 Recorded 1Result Comment: [id number] 2Result Comment: [id number] 3Result Comment: [id number] 4Result Comment: [07/08/2017] [id number] 5Admin Note: [facility] 6Admin Note: [facility] [...] 8.5 Gm, 5 Refills, 05/29/21 17:13:00 EDT, [facility] #[id number], 17, INHALE 2 PUFFS BY MOUTH EVERY [...] 0 Refills, Maintenance, 01/11/22 7:25:00 EDT, Capsule, [facility], Partial fill upon patient request if the prescription is for a schedule II opioid drug., 159, cm, 01/11/22 6:35:0... Start Date: 01/11/22 Stop Date: 02/10/22 Status: Ordered cloNIDine 0.1 mg oral tablet See Instructions, TAKE 1 TABLET BY MOUTH TWICE A DAY NEEDED FOR FOR ANXIETY, # 60 tablet, Refills 0, Instructions Replace Required Details, Route to Pharmacy Electronically, [facility], 165, cm, 01/06/22 14:35:00 EDT, Height, 102.1, kg, ... Start Date: 01/09/22 Status: Ordered colchicine 0.6 mg oral tablet 0.6 mg, 1, tablet, By Mouth, Daily, # 30 tablet, Refills 11, Tot. Refills 11, Maintenance, :00:00 EDT, Route to Pharmacy Electronically, [facility], Partial fill upon patient request [...] 01/11/22 7:25:00 EDT, Route to Pharmacy Electronically, [facility], Partial fill upon patient request if the prescri... Start Date: 01/11/22 Stop Date: 02/10/22 Status: Ordered duloxetine 20 mg oral enteric coated capsule 2 capsule = 40 mg, By Mouth, Daily at bedtime, # 60 capsule, 11 Refills, Maintenance, 06/25/21 12:00:00 EST, Capsule, [facility], Partial fill upon patient request [...] Replace Required Details, Route to Pharmacy Electronically, [facility], 165, cm, 06/25/21 11:35:00 EST, [...] 12/11/21 13:41:00 EDT, Route to Pharmacy Electronically, [facility], Partial fill upon patient requestif [...] 03/05/22 16:36:00 EDT, 12/03/21 16:35:00 EDT, Gum, [facility] #[id number], Partial fill uponpatient request if the prescription [...] # 60 tablet, 6 [facility], [facility], cm, 11/08/21 10:02:00 EDT, Height, 127, kg, 02/03/20 14:39:00 EDT, Dry Weight Start Date: 11/15/21 Status: Ordered rOPINIRole 0.5 mg oral tablet 1 tablet, By Mouth, 3 times a day, # 90 tablet, 5 Refills, 11/08/21 9:01:00 [email or web address], 165, cm, 11/04/21 8:42:00 EDT, Height, 127, kg, 02/03/20 14:39:00 EDT, Dry Weight Start Date: 11/08/21 Status: Ordered rosuvastatin 10 mg oral tablet See Instructions, TAKE 1 TABLET BY MOUTH DAILY, # 90 tablet, 1 Refills, Maintenance, 10/18/21 21:30:00 EDT, [facility], 165, cm, 09/04/21 14:01:00 EST, [...] 0 Refills, Maintenance, 01/11/22 7:24:00 EDT, Tablet, [facility], Partial fill upon patient requestif [...]
--- OUTSIDE RECORDS SUMMARY | 2024-01-02 21:25 | XMS_ITS | Continuity of Care Document ---
Author Organization [facility] Robin Jane Nolberto Address [address] [place] [address]- Care Team Providers Care Quality Coordinator Name Role Phone Kyle Ahumada DO Primary Care Physician [facility] Date[facility]s): 07/14/23 - 08/13/23 [facility] Robin Bolañosley Adult [address] [place] [address]- Allergies, Adverse Reactions, Alerts Substance Reaction Severity [...] vaccine, inactivated 05/10/07 Jarrett rded SARS-CoV-2 mRNA ([id number]-rugk-taaqb) vax 08/30/21 Recorded SARS-CoV-2 (COVID-19) mRNA BNT-162b2 [...] [facility]#[id number] 2Result Comment: Flu [facility]#[id number] 3Result Comment: [id number] 4Result Comment: [id number] 5Result Comment: [id number] 6Result Comment: [id number] 7Result Comment: [07/08/2017] [id number] 8Admin Note: [facility] 9Admin Note: [facility] 9-13 10Admin Note: Given at [facility] 11Admin Note: 03-11-12 GIVEN AT [facility] 12Admin Note: rcvd elsewhere Medications Albuterol (Eqv-ProAir HFA) 90 mcg/inh inhalation aerosol 2 puffs, Inhalation, Every 4 hours, PRN NEEDED FOR WHEEZING OR FOR SHORTNESS OF BREATH (BULK), #8.5 Gm, 5 Refills, Maintenance, 07/25/23 11:45:00 EST, [facility], 17, INHALE 2 PUFFS BY MOUTH EVERY 4 HOURS NEEDED FOR WHEEZING OR FOR SHOR... Start Date: 07/25/23 Status: Ordered cloNIDine 0.1 mg oral tablet 1, tablet, By Mouth, 2 times a day, PRN, ANXIETY (VIAL., # 56 tablet, Refills 2, Maintenance, NEEDED, 07/25/23 11:44:00 EST, Route to Pharmacy Electronically, [facility], 160, cm, 07/07/2315:02:00 EST, Height, 112.4, kg, 06/24/23 17:38:00... Start Date: 07/25/23 Status: Ordered cyclobenzaprine 5 mg oral tablet 1 tablet, By Mouth, 3 times a day, PRN NEEDED, SPASM (VIAL., # 90 tablet, 2 Refills, Maintenance, 06/08/23 9:15:00 EST, [facility], 160, cm, 06/03/23 11:30:00 EST, Height, 98.8, kg, 07/17/22 8:58:00 EST, Dry Weight Start Date: 06/08/23 Status: Ordered docusate sodium 100 mg oral capsule 100 mg, 1, capsule, By Mouth, 2 times a day, hold for loose stool, # 180 capsule, Refills 3, Tot. Refills 3, Maintenance, 03/13/23 16:56:00 EDT, [facility], [facility] fill upon patient request if the prescriptio... Start Date: 03/13/23 Stop Date: 04/12/23 Status: Ordered duloxetine 20 mg oral enteric coated capsule 2 capsule = 40 mg, By Mouth, Daily at bedtime, # 60 capsule, 11 Refills, Maintenance, 06/25/21 12:00:00 EST, Capsule, [facility], Partial fill [...] Details, Route to Pharmacy Electronically, [facility], 160, cm, 07/07/23 15:02:00 EST, Height,... Start Date: 07/28/23 Status: Ordered furosemide 40 mg oral tablet 40 mg, 1, tablet, By Mouth, Daily, # 90 tablet, Refills 1, Tot. Refills 1, Maintenance, 03/02/23 18:12:00 EDT, Route to Pharmacy Electronically, [facility], Partial fill upon patient request if the prescription is for a schedule II opioid drug... Start Date: 03/02/23 Status: Ordered ipratropium nasal 21 mcg/inh spray See Instructions, INSTILL 2 SPRAYS IN EACH NOSTRIL TWO TIMES A DAY, # 30 mL, 11 Refills, Maintenance, 08/11/23 7:46:00 EST, [facility], 30, INSTILL 2 SPRAYS IN [...] 07/01/23 14:32:00 EST, [facility], [facility], cm, 06/26/23 11:21:00 EST, Height, 112.4, kg, 06/24/23 17:38:00 EST, Dry Weight Start Date: 07/01/23 Status: Ordered metFORMIN 500 mg oral tablet 1 tablet = 500 mg, By Mouth, 2 times a day, # 60 tablet, 5 Refills, Maintenance, 07/07/23 15:26:00 EST, Tablet, [facility], Partial fill upon patient request if the prescription is for a schedule II opioid drug., 160, cm, 07/07/23 15:02:00 EST... Start Date: 07/07/23 Stop Date: 01/03/24 Status: Ordered nicotine 21 mg/24 hr transdermal film, extended release 1 patch, Topically, Daily, # 30 patch, 3 Refills, Maintenance, 06/08/23 9:15:00 EST, [facility], 30, APPLY 1 PATCH TOPICALLY [...] tablet, 5 Refills, Maintenance, 04/10/23 16:03:00 EDT, [facility], 160, cm, 04/02/23 12:45:00 EDT, Height, 98.8, kg, 07/17/22 8:58:00 EST, Dry Weight Start Date: 04/10/23 Status: Ordered rOPINIRole 0.5 mg oral tablet 1 tablet, By Mouth, 3 times a day, ^1R1,1R3,1R4., # 90 tablet, 5 Refills, Maintenance, 05/09/23 20:56:00 EDT, [facility], 160, cm, 04/02/23 12:45:00 EDT, Height, 98.8, kg, 07/17/22 8:58:00 EST, Dry Weight Start Date: 05/09/23 Status: Ordered rosuvastatin 10 mg oral tablet 1 tablet, By Mouth, Daily, ^1R1., # 30 tablet, 5 Refills, Maintenance, 07/01/23 14:33:00 EST, [facility], 160, cm, 06/26/23 11:21:00 EST, Height, 112.4, kg, 06/24/23 17:38:00 EST, Dry Weight Start Date: 07/01/23 Status: Ordered Symbicort 160mcg/4.5mcg Inhaler 2, puffs, Inhalation, 2 times a day, # 10.2 Gm, Refills 11, Tot. Refills 11, Maintenance, 06/03/23 11:47:00 EST, Aerosol, Route to Pharmacy Electronically, NCPDP_[id number], [facility], 160, cm, 06/03/23 11:30:00 EST, Height, 98.8, kg, ... 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 Confirmed Active [...] Team Personnel Name: Sandra Wills NP Position[facility] Associate Professional Member Role: Primary Care Nurse Address: Address: [address] [facility] [place] [address]- [place] Name: Marley Alejo RN Position: [facility] ED RN W/OE and Tasks Member Role: Primary Care Nurse Name: Rashi Dewitt RN Position: S RN Member Role: Primary Care Nurse Name: Alma Delia Fonseca PharmD Position: [facility] Associate Professional Member Role: Lifetime Consulting Provider Address: Address: [address] [facility] [place] [address]- [place] Name: Yolis Mattson RN Position: [facility] RN Member Role: Primary Care Nurse Name: Priscila Garzon RN Position: [facility] RN Member Role: Primary Care Nurse Name: Kyle Ahumada DO Position: [facility] Physician - Primary Care Member Role: PCP Address: Address: [address] [place] [address]- [place] Name: Renea Mart RN Position[facility] RN Member Role: Primary Care Nurse Care Team Related Persons Name: AYDENYOHANNESFAUZIA Address: home [address] [place] [address] Name: AURELIA SHETH Address: [address] [place] [address] Name: BRE OSORIO Address: home [address] [place] [address]
--- OUTSIDE RECORDS SUMMARY | 2024-01-02 21:25 | XMS_ITS | Continuity of Care Document ---
Author Organization [facility] Address [address] [place] [address]- Care Team Providers Care Wrapper Layer And Examiner Soft Work Name Role Phone Krishan GRIDER, Eulogio Molina Primary Care Physician [facility] [id number] Date(s): 11/05/21 - 01/08/22 [facility] [address] [place] [address]- Attending Physician: Lisa Cazares MD Admitting Physician: Lisa Cazares MD Referring Physician: Eulogio Nickerson MD Allergies, Adverse Reactions, Alerts Substance Reaction Severity Status Adhesive Bandage Active Dust copd exac/sinus congestion A ctive Immunizations Given and Recorded Vaccine Date Status Refusal Reason SARS-CoV-2 mRNA (ckpqujj-lnof-kjvoo) vax 08/30/21 Recorded influenza virus vaccine, inactivated [...] B adult vaccine 06/14/02 Recorded 1Result Comment: [id number] 2Result Comment: [id number] 3Result Comment: [id number] 4Result Comment: [07/08/2017] [id number] 5Admin Note: [facility] 6Admin Note: [facility] [...] 8.5 Gm, 5 Refills, 05/29/21 17:13:00 EDT, [id number], 17, INHALE 2 PUFFS BY MOUTH EVERY 4 HOURS NEEDED FOR WHEEZING OR SHORTNE... Start Date: 05/29/21 Status: Ordered calcipotriene 0.005% topical cream 1 application, Topically, 2 times a day, # 60 Gm, 11 Refills, Maintenance, 11/15/21 11:54:00 EDT, Cream, [facility], Partial fill upon patient request if the prescription is for a schedule IIopioid drug., 1 application Topically 2 times a day... Start Date: 11/15/21 Status: Ordered cloNIDine 0.1 mg oral tablet 0.1 mg, 1, tablet, By Mouth, 2 times a day, PRN, # 60 tablet, Refills 0, Tot. Refills 0, Maintenance, Anxiety, 01/06/22 15:10:00 EDT, [facility] fill upon patient request if the prescription is for a... Start Date: 01/06/22 Status: Ordered colchicine 0.6 mg oral tablet 0.6 mg, 1, tablet, By Mouth, Daily, # 30 tablet, Refills 11, Tot. Refills 11, Maintenance, 227:00:00 EDT, Route to Pharmacy Electronically, [facility], Partial fill upon patient request if the prescription is for a schedule II opioid dr... Start Date: 10/30/21 Status: Ordered duloxetine 20 mg oral enteric coated capsule 2 capsule = 40 mg, By Mouth, Daily at bedtime, # 60 capsule, 11 Refills, Maintenance, 06/25/21 12:00:00 EST, Capsule, [facility], Partial fill upon patient request [...] Required Details, Route to Pharmacy Electronically, [facility], 165, cm, 06/25/21 11:35:00 EST, Height, 127, kg, 02/03/20 14:39:00 EDT, Dry Weight Start Date: 08/05/21 Status: Ordered metoprolol 100 mg oral tablet, extended release 100 mg, 1, tablet, By Mouth, Daily, # 90 tablet, Refills 1, Tot. Refills 1, Maintenance, 12/11/21 13:41:00 EDT, Route to Pharmacy Electronically, [facility], Partial fill upon patient requestif the prescription is for a schedule II opioid keanu... Start Date: 12/11/21 Status: Ordered nicotine 4 mg oral transmucosal gum 1 each = 4 mg, Chew, Every 2 hours, PRN as needed for smoking cessation, # 160 each, 2 Refills, Acute 03/05/22 16:36:00 EDT, 12/03/21 16:35:00 EDT, [facility] #[id number], Partial fill uponpatient request if the prescription is for a schedu... Start Date: 12/03/21 Stop Date: 03/05/22 Status: Ordered NuLYTELY with Flavor Packs oral powder for reconstitution 240 mL, By Mouth, Every 10 minutes, # 1 each, 0 Refills, Maintenance, 10/25/21 10:39:00 EDT, REC Powder, [facility], Partial fill upon patient request if the prescription is for a schedule IIopioid drug., 240 mL By Mouth Every 10 minutes, 165... Start Date: 10/25/21 Status: Ordered penicillin V potassium 250 mg oral tablet 1 tablet, By Mouth, 2 times a day, CELLULITIS PROPHYLAXIS., # 60 tablet, 6 Refills, [facility], 165, cm, 11/08/21 10:02:00 EDT, Height, 127, kg, 02/03/20 14:39:00 EDT, Dry Weight Start Date: 11/15/21 Status: Ordered rOPINIRole 0.5 mg oral tablet 1 tablet, By Mouth, 3 times a day, # 90 tablet, 5 Refills, 11/08/21 9:01:00 EDT, [facility], 165, cm, 11/04/21 8:42:00 EDT, Height, 127, kg, 02/03/20 14:39:00 EDT, Dry Weight Start Date: 11/08/21 Status: Ordered rosuvastatin 10 mg oral tablet See Instructions, TAKE 1 TABLET BY MOUTH DAILY, # 90 tablet, 1 Refills, Maintenance, 10/18/21 21:30:00 EDT, [facility], 165, cm, 09/04/21 14:01:00 EST, [...] 6 Refills, Maintenance, 12/13/21 13:47:00 EDT, Tablet, [facility], Dosing Subject To Change per INR Result per MD,165, cm, 12/06/21 14:01:00 EDT, Height, 102.1, kg,... 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
--- OUTSIDE RECORDS SUMMARY | 2024-01-02 21:25 | XMS_ITS | Continuity of Care Document ---
Author Organization [facility] Robin Jane Nolberto lt Address [address] [place] [address]- Care Team Providers Care Mix Crusher Operator Name Role Phone Radha GRIDER, Fuentes Kenny Primary Care Physician Encounter [facility] Date(s): 04/19/20 - 05/19/20 [facility] Adult [address] [place] [address]- [facility] Allergies, Adverse Reactions, Alerts Substance [...] H1N1, inactive(oldterm) 8 05/08/11 Given 1Result Comment: [id number] 2Result Comment: [id number] 3Result Comment: [07/08/2017] 16741-869-10 4Admin Note: [facility] 5Admin Note: [facility] [...] 12/06/19 9:16:00 EDT, Route to Pharmacy Electronically, [facility] #[id number], please schedule appt for further refills, 162, cm, 09/21/19 12:01:00 EST, Laurie... Start Date: 12/06/19 Status: Ordered clindamycin 150 mg oral capsule 2 capsule = 300 mg, By Mouth, Every 8 hours, for 10 days, take with an over the counter probiotic, # 60 capsule, 0 Refills, Acute 05/26/20 15:06:00 EDT, 05/16/20 15:06:00 EDT, Capsule, [facility] #[id number], 165, cm, 05/16/20 14:15:00 EDT, Lukas... Start Date: 05/16/20 Stop Date: 05/26/20 Status: Ordered colchicine 0.6 mg oral tablet See Instructions, take 1 tablet by mouth once daily if needed for PSEUDOGOUT pain, # 30 tablet, Refills 5, Tot. Refills 5, Soft Stop, 01/05/20 8:41:00 EDT, Instructions Replace Required Details, Route to Pharmacy Electronically, [facility] #... Start Date: 01/05/20 Status: Ordered [...] Gm, 1 Refills, Maintenance, 12/20/19 16:30:00 EDT, [facility] #[id number], 162, cm, 09/21/19 12:01:00 EST, Height, 116.4, [...] mL, 5 Refills, Maintenance, 10/01/18 10:08:42 EST, [place], 2 sprays Nares, Both 2 times a [...] 03/22/20 16:34:00 EDT, Route to Pharmacy Electronically, [facility] #[id number], 165, cm, 02/02/2014:39:00 EDT, Height, 127, kg, [...] 0 Refills, Maintenance, 04/23/20 12:56:00 EDT, Tablet, [facility] #[id number], 04/24/20, 165, cm, 02/03/20 14:39:00 EDT, He... [...] 5 Refills, Maintenance, 04/30/20 15:13:00 EDT, Tablet, [facility] #[id number], 165, cm, 04/30/20 14:30:00 EDT, Height, 127, kg, 02/03/20 14:39:00 EDT, Dry Weight Start Date: 04/30/20 Status: Ordered rosuvastatin 10 mg oral tablet 1 tablet = 10 mg, By Mouth, Daily, # 90 tablet, 3 Refills, Maintenance, 05/03/20 16:35:00 EDT, Tablet, [facility] #[id number], d/c rx for capsules, 165, cm, 04/30/20 14:30:00 EDT, Height, 127, kg, 02/03/20 14:39:00 EDT, Dry Weight Start Date: 05/03/20 Status: Ordered Ventolin HFA 108 mcg/inh inhalation aerosol with adapter 2 puffs, Inhalation, Every 4 hours, PRN Wheezing/Shortness of Breath, # 1 each, 11 Refills, Soft Stop, 01/19/20 11:46:00 EDT, [facility] #[id number], 165, cm, 01/16/20 6:17:00 EDT, Height, 128.1, kg, 01/16/20 6:17:00 EDT, Dry Weight Start Date: 01/19/20 Status: Ordered warfarin 5 mg oral tablet 1 tablet = 5 mg, By Mouth, Daily, dosing subject to change pending inr lab values, # 30 tablet, 5 Refills, Maintenance, 02/15/20 13:21:00 EDT, Tablet, [facility] #[id number], 165, cm, 02/03/20 14:39:00 EDT, Height, 127, [...]
--- OUTSIDE RECORDS SUMMARY | 2024-01-02 21:25 | XMS_ITS | Continuity of Care Document ---
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 Role Phone Kyle Ahumada DO Primary Care Physician [phone] Encounter [facility] Date(s): 07/07/23 - 07/14/23 [facility] Robin Jane Adult [address] [place] [address]- Encounter Diagnosis Acute exacerbation of COPD with asthma(Discharge Diagnosis) - 07/06/23 Chronic obstructive pulmonary disease (COPD)(Discharge Diagnosis) - 07/06/23 Bipolar disorder NOS(Discharge Diagnosis) - 07/06/23 Congestive heart failure(Discharge Diagnosis) - 07/06/23 Paroxysmal atrial flutter(Discharge Diagnosis) - 07/06/23 Severe obstructive sleep apnea-hypopnea syndrome(Discharge Diagnosis) - 07/06/23 Type 2 diabetes mellitus with hyperglycemia(Discharge Diagnosis) - 07/06/23 Bursitis of right shoulder(Discharge Diagnosis) - 07/07/23 Type 2 diabetes mellitus with peripheral neuropathy(Discharge Diagnosis) - 07/07/23 Hyperparathyroidism(Discharge Diagnosis) - 07/07/23 Chronic deep vein thrombosis (DVT)(Discharge Diagnosis) - 07/07/23 Attending Physician: Kyle Ahumada DO Allergies, Adverse [...] vaccine, inactivated 05/10/07 Jarrett rded SARS-CoV-2 mRNA ([id number]) vax 08/30/21 Recorded SARS-CoV-2 (COVID-19) mRNA BNT-162b2 vac 01/02/21 Recorded SARS-CoV-2 (COVID-19) mRNA BNT-162b2 vac 12/02/20 Recorded Fluvirin (oldterm) 10 03/22/15 Given Fluzone Preservative-Free (oldterm) 11 03/12/12 Gi octavio pneumococcal 23-valent vaccine 10/08/11 Given tetanus/diphtheria/pertussis, acel(Tdap) 09/08/11 Given tetanus/diphtheria/pertussis, acel(Tdap) 12/17/06 Recorded influ virus vac, H1N1, inactive(oldterm) 12 05/08/11 Given hepatitis B adult vaccine 06/14/02 Recorded 1Result Comment: PCV [address] [facility]#[id number] 2Result Comment: Flu [facility]#[id number] 3Result Comment: [id number] 4Result Comment: [id number] 5Result Comment: [id number] 6Result Comment: [id number] 7Result Comment: [07/08/2017] 27121-352-11 8Admin Note: [facility] 9Admin Note: [facility] - 10Admin Note: Given at [facility] 11Admin Note: 03-11-12 GIVEN AT [facility] 12Admin Note: rcvd elsewhere Medications Albuterol (Eqv-ProAir HFA) 90 mcg/inh inhalation aerosol See Instructions, INHALE 2 PUFFS BY MOUTH EVERY FOUR HOURS NEEDED FOR WHEEZING OR SHORTNESS OF BREATH, # 8.5 Gm, 5 Refills, Maintenance, 03/13/23 9:55:00 EDT, [facility], 30, INHALE 2 PUFFS BY MOUTH EVERY FOUR HOURS NEEDED FOR WHEEZING O... Start Date: 03/13/23 Status: Ordered cloNIDine 0.1 mg oral tablet 1, tablet, By Mouth, 2 times a day, PRN, ANXIETY (VIAL., # 56 tablet, Refills 2, Maintenance, NEEDED, 05/09/23 20:57:00 EDT, Route to Pharmacy Electronically, [facility], 160, cm, 04/02/2312:45:00 EDT, Height, 98.8, kg, 07/17/22 8:58:00 ES... Start Date: 05/09/23 Status: Ordered cyclobenzaprine 5 mg oral tablet 1 tablet, By Mouth, 3 times a day, PRN NEEDED, SPASM (VIAL., # 90 tablet, 2 Refills, Maintenance, 06/08/23 9:15:00 EST, [facility], 160, cm, 06/03/23 11:30:00 EST, Height, 98.8, kg, 07/17/22 8:58:00 EST, Dry Weight Start Date: 06/08/23 Status: Ordered docusate sodium 100 mg oral capsule 100 mg, 1, capsule, By Mouth, 2 times a day, hold for loose stool, # 180 capsule, Refills 3, Tot. Refills 3, Maintenance, 03/13/23 16:56:00 EDT, Route to Pharmacy Electronically, [facility], Partial fill upon patient request if the prescriptio... Start Date: 03/13/23 Stop Date: 04/12/23 Status: Ordered duloxetine 20 mg oral enteric coated capsule 2 capsule = 40 mg, By Mouth, Daily at bedtime, # 60 capsule, 11 Refills, Maintenance, 06/25/21 12:00:00 EST, Capsule, [facility], Partial fill upon patient request [...] Date: 07/07/23 Stop Date: 11/04/23 Status: Ordered furosemide 40 mg oral tablet 40 mg, 1, tablet, By Mouth, Daily, # 90 tablet, Refills 1, Tot. Refills 1, Maintenance, 03/02/23 18:12:00 EDT, Route to Pharmacy Electronically, [facility], Partial fill upon patient request if the prescription is for a schedule II opioid drug... Start Date: 03/02/23 Status: Ordered ipratropium nasal 21 mcg/inh spray 2 sprays = 42 mcg, Nares, Both, 2 times a day, # 30 mL, 5 Refills, Maintenance, 03/13/23 16:58:00 EDT, [place], [facility], Partial fill upon patient request if [...] 07/01/23 14:32:00 EST, Route to Pharmacy Electronically, [facility], 160, cm, 06/26/23 11:21:00 EST, Height, 112.4, kg, 06/24/23 17:38:00 EST, Dry Weight Start Date: 07/01/23 Status: Ordered metFORMIN 500 mg oral tablet 1 tablet = 500 mg, By Mouth, 2 times a day, # 60 tablet, 5 Refills, Maintenance, 07/07/23 15:26:00 EST, Tablet, [facility], Partial fill upon patient request if the prescription is for a schedule II opioid drug., 160, cm, 07/07/23 15:02:00 EST... Start Date: 07/07/23 Stop Date: 01/03/24 Status: Ordered nicotine 21 mg/24 hr transdermal film, extended release 1 patch, Topically, Daily, # 30 patch, 3 Refills, Maintenance, 06/08/23 9:15:00 EST, [facility], 30, APPLY 1 PATCH TOPICALLY DAILY, 160, cm, 06/03/23 11:30:00 EST, Height, 98.8, kg, 07/17/22 8:58:00 EST, Dry Weight Start Date: 06/08/23 Status: Ordered penicillin V potassium 250 mg oral tablet 1 tablet, By Mouth, 2 times a day, ^1R1,1R4., # 60 tablet, 5 Refills, Maintenance, 04/10/23 16:03:00 EDT, [facility], 160, cm, 04/02/23 12:45:00 EDT, Height, 98.8, kg, 07/17/22 8:58:00 EST, Dry Weight Start Date: 04/10/23 Status: Ordered rOPINIRole 0.5 mg oral tablet 1 tablet, By Mouth, 3 times a day, ^1R1,1R3,1R4., # 90 tablet, 5 Refills, Maintenance, 05/09/23 20:56:00 EDT, [facility], 160, cm, 04/02/23 12:45:00 EDT, Height, 98.8, kg, 07/17/22 8:58:00 EST, Dry Weight Start Date: 05/09/23 Status: Ordered rosuvastatin 10 mg oral tablet 1 tablet, By Mouth, Daily, ^1R1., # 30 tablet, 5 Refills, Maintenance, 07/01/23 14:33:00 EST, [facility], 160, cm, 06/26/23 11:21:00 EST, Height, 112.4, kg, 06/24/23 17:38:00 EST, Dry Weight Start Date: 07/01/23 Status: Ordered Symbicort 160mcg/4.5mcg Inhaler 2, puffs, Inhalation, 2 times a day, # 10.2 Gm, Refills 11, Tot. Refills 11, Maintenance, 06/03/23 11:47:00 EST, Aerosol, Route to Pharmacy Electronically, [id number], [facility], 160, cm, 06/03/23 11:30:00 EST, Height, 98.8, kg, ... 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 [...] Effective Dates Health Status Clinical Service Informant Acute exacerbation of COPD with asthma Discharge Diagnosis 07/06/23 Chronic obstructive pulmonary disease (COPD) Discharge Diagnosis 07/06/23 Bipolar disorder NOS Discharge Diagnosis 07/06/23 Congestive heart failure Discharge Diagnosis 07/06/23 Paroxysmal atrial flutter Discharge Diagnosis 07/06/23 Severe obstructive sleep apnea-hypopnea syndrome Discharge Diagnosis 07/06/23 Type 2 diabetes mellitus with hyperglycemia Discharge Diagnosis 07/06/23 Bursitis of right shoulder Discharge Diagnosis 07/07/23 Type 2 diabetes mellitus with peripheral neuropathy Discharge Diagnosis 07/07/23 Hyperparathyroidism Discharge Diagnosis 07/07/23 Chronic deep vein thrombosis (DVT) Discharge Diagnosis 07/07/23 Vital Signs Most recent to oldest [Reference Range]: 1 Height 160 cm (07/07/23 3:02 PM) Weight 109.5 kg (07/07/23 3:02 PM) Oxygen Saturation [94-100 %] 96 % (07/07/23 3:02 PM) Pulse Rate [55-90 bpm] 89 bpm (07/07/23 3:02 PM) Body Mass Index [18.5-24.99 kg/m2] 42.77 kg/m2 *>HHI* (07/07/23 3:02 PM) Blood Pressure [90-138/55-84 mm Hg] 102/ 69mm Hg (07/07/23 3:02 PM) Temperature [96.8-100.4 DegF] 97.9 DegF (07/07/23 3:02 PM) Mode of Delivery (Oxygen) Room air (07/07/23 3:02 PM) Blood pressure sites Arm, left (07/07/23 3:02 PM) Temperature Route Oral (07/07/23 3:02 PM) Weight Obtained Via Standing scale (07/07/23 3:02 PM) Social History Social History Type Response Smoking Status Current every day sm ayesha; Type: Cigarettes; Other: 1 pack daily; entered on: 04/19/18 Sex Female Note * Kim Mireles: PERFORM, SIGN, VERIFY Event Display: Patient Education/Instruction Authored Date: [id number] [facility] *BMP [place] Clinical Summary Name FRANKLIN HARRISON Age 57 Years 1965 [facility]CP [phone] Visit Date 07/07/2023 14:50:00 Patient Instructions labs in 1?? week can do at [address]?? Physical therapy for shoulder?? you can Call [facility]?? follow up with Cardiology and Pulmonology as planned For your breathing??followup if worsens changes??prior to??next appointment To next appointment Regarding Diabetes?? work on diet continue?metformin?? work on diet cut out soda's Follow-up with??endocrinology as planned Follow-up with [facility] as planned keep appt with?[facility]??specialist regarding your back Recommend getting the updated COVID-vaccine and the new RSV vaccine at your local pharmacy Additional Instructions: Scheduled Appointments?? Future Appointments ?*BMP??[place] [address],??[address] ?Phone:??--?Fax:??-- ?Appt. Date:??08/03/2023?2:50 PM ?Scheduled Provider:??Kyle Ahumada DO Follow-Up Instructions ?? With: Address: When: f/u 3 months Comments: COPD depression DM Diagnosis Bipolar disorder, unspecified; Unspecified atrial flutter; Chronic obstructive pulmonary disease, unspecified; Type 2 diabetes mellitus with hyperglycemia; Chronic obstructive pulmonary disease with (acute) exacerbation; Heart failure, unspecified; Obstructive sleep apnea (adult) (pediatric) Medications: Please continue your medications until treatment is completed or stopped by your provider. Discuss any questions related to medications with your provider. New Medications [facility], [address] [place] [phone], [phone] Durable Medical Equipment (Freestyle Lancets) check twice daily for Type 2 Diabetes Mellitus. Refills: 3. Next Dose: Medications to Continue with No Changes [facility], [address] [place] [address] [phone], [phone] Metformin (metFORMIN 500 mg oral tablet) 1 tab(s) Oral twice a day for 30 Days. Refills: 5. Next Dose: These medications were not printed or sent to your pharmacy Albuterol (Albuterol (Eqv-ProAir HFA) 90 mcg/inh inhalation aerosol) INHALE 2 PUFFS BY MOUTH EVERY FOUR HOURS NEEDED FOR WHEEZING OR SHORTNESS OF BREATH. Refills: 5. Next Dose: Budesonide-Formoterol (Symbicort 160mcg/4.5mcg Inhaler) 2 puff(s) Inhalation twice a day. Refills: 11. Next Dose: Clonidine (cloNIDine 0.1 mg oral tablet) 1 tab(s) Oral twice a day as needed. ANXIETY (VIAL.. Refills: 2. Next Dose: Cyclobenzaprine (cyclobenzaprine 5 mg oral tablet) 1 tab(s) Oral 3 times a day as needed. SPASM (VIAL.. Refills: 2. Next Dose: Docusate (docusate sodium 100 mg [...] tab(s) Oral Daily at Bedtime. Next Dose: Lamotrigine (lamotrigine 25 mg oral tablet) 2 tab(s) Oral Daily at Bedtime. Next Dose: Loratadine (loratadine 10 mg oral tablet) 1 tab(s) Oral Daily. R1.. Refills: 5. Next Dose: Nicotine (nicotine 21 mg/24 hr transdermal film, extended release) 1 patch(es) Topically Daily. Refills: 3. Next Dose: penicillin [...] Bandage Medications Given This Visit Future Orders ?MM Digital Mammo Screening? Order Date:07/07/23?- Complete on or after?07/07/23 ?Comprehensive Metabolic Panel? Order Date:07/07/23?- Complete on or after?07/07/23 ?CBC w/ Differential? Order Date:07/07/23?- Complete on or after?07/07/23 Vital Signs Height 160 cm Weight 109.5 kg BMI 42.77 kg/m2 Blood Pressure 102 mm Hg/69 mm Hg Temperature 97.9 DegF Pulse Rate 89 bpm Respiratory Rate 02 Sat Mode of Delivery 96 %/Room air You can now view a summary of your hospital visit from the comfort of your home through a free online portal called [employer]. [employer] is a website that allows you to securely view your medical information including discharge summary, medications and follow-up visits. ??You can alsosend a secure electronic message to your doctor???s office to request appointments, renew medications or just ask a question. You can enroll at [email or web address] or register during your next office visit. [...] primary care provider, you may find a [facility] provider by calling [facility] [employer] Link at [phone]. [facility], in keeping with [facility] guidance, no longer requires face masks [...] format to support your individualized medical care. * Rena Izaguirre RN: PERFORM, SIGN, VERIFY, MODIFY, SIGN, SIGN, MODIFY, SIGN, MODIFY Kyle Ahumada DO: SIGN Event Display: Clinical Summary Authored Date: Patient: FRANKLIN HARRISON Age: 57 years Sex: Female : 1965 Associated Diagnoses: None Author: Rena Izaguirre RN Visit Information Type of Visit Action Taken: S: Patient report's thoughts SI due to Chronic pain. B: Patient c/o: Pt denies any SI or HI at this time. However report's of thoughts of SI due to chronic pain mostly in her joints all over body. Patient was seen today per PCP for IPF (note in cis). At Check out pt asked to meet with nurse. We went in to a room [place], so this nurse can further triage the pt, and so their will be privacy away from the main lobby. Pt reported to this nurse that she is having worsening Chronic pain and that she is also reporting thoughts of SI. Patient is crying and upset. Her daughter brings her to visit today and presently waiting in the car outside. Pt stated; I have been suicidal since I was 11 y/o..but I will not do it because of my kids.. I don't want them to find me . I thought of drowning ..hanging ..or overdosing on pills on some pills ..But I wont do it.. I want to go and n ot be here.. but I wont.. . Pt report's chronic pain is the main factor of her having thoughts of living this planet and hanging seems to be on her mind a lot . However pt has been following [facility] and has a f/u on Thursday with them. I have NS RN another nurse next door keep an eye on the pt while I went to get Aleja from our office to triage pt with me. Aleja came in to talk to pt while I was in the room. (Please see Aleja note in cis) A: Per protocol: Patient is advised to call 911 if her s/sx worse and also advised she can voluntarily admit her self if she feels that her s/sx worse. pt provided with Crisis number to call. pt was calmer after Aleja and me spoke with patient and she even smiled at the end of out conversation and was thankful we took the tame to talk to her. pt advised to call our office back if any questions or concerns. pt stated understanding and agrees with plan. R: Multiple (2) protocols were used on this call. Disposition for Call: Home Care Protocol Used: Suicide Concerns (Adult) Protocol-Based Disposition: Home Care Positive Triage Question: * Referral phone numbers for crisis intervention and depression, questions about * All higher-acuity triage questions were negative Care Advice Discussed: * Reasons To Call Back - You feel like harming yourself or feel more depressed. - You become worse Protocol Used: Depression (Adult) Protocol-Based Disposition: Home Care Positive Triage Question: * Referral phone numbers for depression, questions about * All higher-acuity triage questions were negative Care Advice Discussed: * Note to Triager - Depression * Depression - Symptoms * Depression - Causes * Depression - Tips for Healthy Living * Depression - Stay Active * Reasons To Call Back - Sadness or depression symptoms persist over 2 weeks - You want to talk with a counselor - You feel like harming yourself - You become worse Sent to PCP as FYI . * Rena Izaguirre RN: PERFORM Event Display: Clinical Summary Authored Date: Called [facility] Main 2 spoke with her storage manager Rayne Saúl who was aware of the above. She is seeing pt in the home today. 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 She did report last week when she met her patient was crying as well and was upset about her chronic pain. But no SI or HI. (PCP did refer her opt [facility] in [place] to be evaluated). Rayne isaware pt is also following up with [facility] today (however when I called them, they can not disclose if pt did, or did not have, a visit today as pt did not sign release if informationwith our office). Rayne report's that she will call our office if any questions or concerns in the future. * Rena Izaguirre RN: PERFORM Event Display: Clinical Summary Authored Date: Patient is on few Psych meds and has a MED Minder pill box as confirmed per Rayne today. Patient Care team information Care Team Personnel Name: Sandra Wills NP Position: [facility] PCO Associate Professional Member Role: Primary Care Nurse Address: Address: [address] [place] [address] [place] [address]- Name: Marley Alejo RN Position: [facility] RN Member Role: Primary Care Nurse Name: Rashi Dewitt RN Position: [facility] RN Member Role: Primary Care Nurse Name: Alma Delia Fonseca PharmD Position: [facility] Associate Professional Member Role: [employer] Provider Address: Address: [address] [place] [address] [place] [address]- [place] Name: Yolis Mattson RN Position: S RN Member Role: Primary Care Nurse Name: Priscila Garzon RN Position: S RN Member Role: Primary Care Nurse Name: Kyle Ahumada DO Position: [facility] Physician - Primary Care Member Role: PCP Address: Address: [address] [place] [address]- [place] Name: Renea Mart RN Position: S RN Member Role: Primary Care Nurse Care Team Related Persons Name: FAUZIA JANSEN Address: home [address] [place] [address] Name: AURELIA SHETH Address: home [address] [place] [address] Name: BRE OSORIO Address: [address] [place] [address]
--- OUTSIDE RECORDS SUMMARY | 2024-01-02 21:25 | XMS_ITS | Continuity of Care Document ---
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 Continuous Crusher Operator Name Role Phone Kyle Ahumada DO Primary Care Physician [facility]): [facility]23 - 10/23/23 [facility] Robin Bolañosley Adult [address] [place] [address]- Encounter Diagnosis COPD with acute bronchitis(Discharge Diagnosis) - 10/16/23 Attending Physician: Lissette Tyler Allergies, Adverse Reactions, Alerts Substance Reaction Severity [...] 05/23/14 Give n influenza virus vaccine, inactivated 06/07/13 Gi octavio influenza virus vaccine, inactivated 04/09/11 Jarrett rded influenza virus vaccine, inactivated 03/18/10 Jarrett rded influenza virus vaccine, inactivated 04/21/09 Jarrett rded influenza virus vaccine, inactivated 06/19/08 Jarrett rded influenza virus vaccine, inactivated 05/10/07 Jarrett rded SARS-CoV-2 mRNA (cenudry-xvbk-xxmbc) vax 08/30/21 Recorded SARS-CoV-2 (COVID-19) mRNA BNT-162b2 vac 01/02/21 Recorded SARS-CoV-2 (COVID-19) mRNA BNT-162b2 vac 12/02/20 Recorded Fluvirin (oldterm) 10 03/22/15 Given Fluzone Preservative-Free (oldterm) 11 03/12/12 Gi octavio pneumococcal 23-valent vaccine 10/08/11 Given tetanus/diphtheria/pertussis, acel(Tdap) 09/08/11 Given tetanus/diphtheria/pertussis, acel(Tdap) 12/17/06 Recorded influ virus vac, H1N1, inactive(oldterm) 12 05/08/11 Given hepatitis B adult vaccine 06/14/02 Recorded 1Result Comment: PCV 20 [facility][NOTE 3]#[id number] 2Result Comment: Flu [facility][NOTE 3]#[id number] 3Result Comment: [id number] 4Result Comment: [id number] 5Result Comment: [id number] 6Result Comment: [id number] 7Result Comment: [07/08/2017] [id number] 8Admin Note: [facility] 9Admin Note: [facility] 04-08 10Admin Note: Given at [facility] 11Admin Note: 03-11-12 GIVEN AT [facility] 12Admin Note: rcvd elsewhere Medications acetaminophen 325 mg oral tablet 2, tablet, By Mouth, Every 6 hours, PRN, # 100 tablet, Refills 5, Maintenance, NEEDED FOR MODERATE PAIN (VIAL), 09/14/23 15:41:00 EST, Route to Pharmacy Electronically, [facility], 160, cm, 07/07/23 15:02:00 EST, Height, 112.4, kg, 06/24/23... Start Date: 09/14/23 Status: Ordered Albuterol (Eqv-ProAir HFA) 90 mcg/inh inhalation aerosol 2 puffs, Inhalation, Every 4 hours, PRN NEEDED FOR WHEEZING OR FOR SHORTNESS OF BREATH (BULK), #8.5 Gm, 5 Refills, Maintenance, 07/25/23 11:45:00 EST, [facility], 17, INHALE 2 PUFFS BY MOUTH [...] 10/07/23 15:53:00 EDT, Route to Pharmacy Electronically, [facility], 160, cm, 07/07/2315:02:00 EST, Height, 112.4, kg, 06/24/23 17:38:00... Start Date: 10/07/23 Status: Ordered cyclobenzaprine 5 mg oral tablet 1 tablet, By Mouth, 3 times a day, PRN NEEDED, SPASM (VIAL., # 90 tablet, 3 Refills, Maintenance, 08/19/23 10:07:00 EST, [facility], 160, cm, 07/07/23 15:02:00 EST, Height, 112.4, kg, 06/24/23 17:38:00 EST, Dry Weight Start Date: 08/19/23 Status: Ordered docusate sodium 100 mg oral capsule 100 mg, 1, capsule, By Mouth, 2 times a day, hold for loose stool, # 180 capsule, Refills 3, Tot. Refills 3, Maintenance, 03/13/23 16:56:00 EDT, Route to Pharmacy Electronically, [facility], Partial fill upon patient request if the prescriptio... Start Date: 03/13/23 Stop Date: 04/12/23 Status: Ordered duloxetine 20 mg oral enteric coated capsule 2 capsule = 40 mg, By Mouth, Daily at bedtime, # 60 capsule, 11 Refills, Maintenance, 06/25/21 12:00:00 EST, Capsule, [facility], Partial fill upon patient request if [...] Replace Required Details, Route to Pharmacy Electronically, [facility], 160, cm, 07/07/23 15:02:00 EST, Height,... Start Date: 07/28/23 Status: Ordered furosemide 40 mg oral tablet 40 mg, 1, tablet, By Mouth, Daily, # 90 tablet, Refills 1, Tot. Refills 1, Maintenance, 03/02/23 18:12:00 EDT, Route to Pharmacy Electronically, [facility], Partial fill upon patient request if the prescription is for a schedule II opioid drug... Start Date: 03/02/23 Status: Ordered gabapentin 300 mg oral capsule 300 mg, 1, capsule, By Mouth, 3 times a day, # 90 capsule, Refills 2, Tot. Refills 2, Maintenance, 09/09/23 17:17:00 EST, Route to Pharmacy Electronically, [facility], Partial fill upon patient request if [...] mL, 11 Refills, Maintenance, 08/11/23 7:46:00 EST, [facility], 30, INSTILL 2 SPRAYS IN EACH [...] 07/01/23 14:32:00 EST, Route to Pharmacy Electronically, [facility], 160, cm, 06/26/23 11:21:00 EST, Height, 112.4, kg, 06/24/23 17:38:00 EST, Dry Weight Start Date: 07/01/23 Status: Ordered metFORMIN 500 mg oral tablet 1 tablet = 500 mg, By Mouth, 2 times a day, # 60 tablet, 5 Refills, Maintenance, 07/07/23 15:26:00 EST, Tablet, [facility], Partial fill upon patient request if the prescription is for a schedule II opioid drug., 160, cm, 07/07/23 15:02:00 EST... Start Date: 07/07/23 Stop Date: 01/03/24 Status: Ordered nicotine 21 mg/24 hr transdermal film, extended release 1 patch, Topically, Daily, # 28 patch, 3 Refills, Maintenance, 09/14/23 15:41:00 EST[facility], [facility], APPLY 1 PATCH TOPICALLY [...] tablet, 5 Refills, Maintenance, 08/19/23 10:06:00 EST, [facility], 160, cm, 07/07/23 15:02:00 EST, Height, 112.4, kg, 06/24/23 17:38:00 EST,Dry Weight Start Date: 08/19/23 Status: Ordered rOPINIRole 0.5 mg oral tablet 1 tablet, By Mouth, 3 times a day, ^1R1,1R3,1R4., # 90 tablet, 5 Refills, Maintenance, 10/11/23 20:09:00 EDT, [facility], [facility], cm, 07/07/23 15:02:00 EST, Height, 112.4, kg, 06/24/23 17:38:00 EST, Dry Weight Start Date: 10/11/23 Status: Ordered rosuvastatin 10 mg oral tablet 1 tablet, By Mouth, Daily, ^1R1., # 30 tablet, 5 Refills, Maintenance, 07/01/23 14:33:00 EST, [facility], 160, cm, 06/26/23 11:21:00 EST, Height, 112.4, kg, 06/24/23 17:38:00 EST, Dry Weight Start Date: 07/01/23 Status: Ordered Symbicort 160mcg/4.5mcg Inhaler 2, puffs, Inhalation, 2 times a day, # 10.2 Gm, Refills 11, Tot. Refills 11, Maintenance, 06/03/23 11:47:00 EST, Aerosol, Route to Pharmacy Electronically, NCPDP_[id number], [facility], 160, cm, 06/03/23 11:30:00 EST, Height, 98.8, kg, 2... Start Date: 06/03/23 Status: Ordered Walker with seat and breaks Walker with seat and breaks, See Instructions, # 1 each, Refills 0, Tot. Refills 0, Maintenance, HT:5'3 WT:241.6Lbs MARILYN:lifetime Dx:Z91.81(risk of fall), 09/28/23 9:21:00 EST, Supply Start Date: 09/28/23 Status: Ordered Xarelto 20 mg oral tablet 1 tablet, By Mouth, Daily in PM, ^1R4., # 30 tablet, 5 Refills, Maintenance, 08/11/23 11:28:00 EST,[facility], 160, cm, 07/07/23 15:02:00 EST, Height, [...] Effective Dates Health Status Clinical Service Informant COPD with acute bronchitis Discharge Diagnosis 10/16/23 Vital Signs Most recent to oldest [Reference Range]: 1 Height 160 cm (10/16/23 10:40 AM) Social History Social History Type Response Smoking Status Current every day sm oker; Type: Cigarettes; Other: 1 pack daily; entered on: 04/19/18 Sex Female Patient Care team information Care Team Personnel Name: Sandra Wills NP Position: [facility] PCO Associate Professional Member Role: Primary Care Nurse Address: Address: [address] [place] [address] [place] [address]- Name: Marley Alejo RN Position: [facility] RN Member Role: Primary Care Nurse Name: Rashi Dewitt RN Position: [facility] RN Member Role: Primary Care Nurse Name: Alma Delia Fonseca PharmD Position: [facility] Associate Professional Member Role: Lifetime Consulting Provider Address: Address: [address] [facility] [place] [address]- Name: Priscila Garzon RN Position: [facility] RN Member Role: Primary Care Nurse Name: Kyle Ahumada DO Position: [facility] Physician - Primary Care Member Role: PCP Address: Address: [address] [place] [address]- [place] Name: Renea Mart RN Position: [facility] RN Member Role: Primary Care Nurse Care Team Related Persons Name: AYDENFAUZIA SHEFFIELD Address: home [address] [place] [address] Name: AURELIA SHETH Address: [address] [place] [address] Name: BRE OSORIO Address: [address] [place] [address]
--- OUTSIDE RECORDS SUMMARY | 2024-01-02 21:25 | XMS_ITS | Continuity of Care Document ---
Author Organization [facility] Robin Jane Nolberto Address [address] [place] [address]- Care Team Providers Care Sky Cap Name Role Phone Kyle Ahumada DO Primary Care Physician [facility] Date[facility]): 07/16/23 - 08/15/23 [facility] Buck Adult [address] [place] [address]- Allergies, Adverse Reactions, Alerts Substance Reaction Severity [...] vaccine, inactivated 05/10/07 Jarrett rded SARS-CoV-2 mRNA (zvayfzu-odre-niyau) vax 08/30/21 Recorded SARS-CoV-2 (COVID-19) mRNA BNT-162b2 vac 01/02/21 Recorded SARS-CoV-2 (COVID-19) mRNA BNT-162b2 vac 12/02/20 Recorded Fluvirin (oldterm) 10 03/22/15 Given Fluzone Preservative-Free (oldterm) 11 03/12/12 Gi octavio pneumococcal 23-valent vaccine 10/08/11 Given tetanus/diphtheria/pertussis, acel(Tdap) 09/08/11 Given tetanus/diphtheria/pertussis, acel(Tdap) 12/17/06 Recorded influ virus vac, H1N1, inactive(oldterm) 12 05/08/11 Given hepatitis B adult vaccine 06/14/02 Recorded 1Result Comment: PCV 20 [facility]#[id number] 2Result Comment: Flu [facility]#[id number] 3Result Comment: [id number] 4Result Comment: [id number] 5Result Comment: [id number] 6Result Comment: [id number] 7Result Comment: [07/08/2017] 91027-520-23 8Admin Note: [facility] 9Admin Note: [facility] 9-13 10Admin Note: Given at [facility] 11Admin Note: 03-11-12 GIVEN AT [facility] 12Admin Note: rcvd elsewhere Medications Albuterol (Eqv-ProAir HFA) 90 mcg/inh inhalation aerosol 2 puffs, Inhalation, Every 4 hours, PRN NEEDED FOR WHEEZING OR FOR SHORTNESS OF BREATH (BULK), #8.5 Gm, 5 Refills, Maintenance, 07/25/23 11:45:00 EST[facility], 17, INHALE 2 PUFFS BY MOUTH EVERY 4 HOURS NEEDED FOR WHEEZING OR FOR SHOR... Start Date: 07/25/23 Status: Ordered cloNIDine 0.1 mg oral tablet 1, tablet, By Mouth, 2 times a day, PRN, ANXIETY (VIAL., # 56 tablet, Refills 2, Maintenance, NEEDED, 07/25/23 11:44:00 EST, Route to Pharmacy Electronically, [facility], 160, cm, 07/07/2315:02:00 EST, Height, 112.4, kg, 06/24/23 17:38:00... Start Date: 07/25/23 Status: Ordered cyclobenzaprine 5 mg oral tablet 1 tablet, By Mouth, 3 times a day, PRN NEEDED, SPASM (VIAL., # 90 tablet, 2 Refills, Maintenance, 06/08/23 9:15:00 EST, [facility], 160, cm, 06/03/23 11:30:00 EST, Height, 98.8, kg, 07/17/22 8:58:00 EST, Dry Weight Start Date: 06/08/23 Status: Ordered docusate sodium 100 mg oral capsule 100 mg, 1, capsule, By Mouth, 2 times a day, hold for loose stool, # 180 capsule, Refills 3, Tot. Refills 3, Maintenance, 03/13/23 16:56:00 EDT, Route to Pharmacy Electronically, [facility], Partial fill upon patient request if the prescriptio... Start Date: 03/13/23 Stop Date: 04/12/23 Status: Ordered duloxetine 20 mg oral enteric coated capsule 2 capsule = 40 mg, By Mouth, Daily at bedtime, # 60 capsule, 11 Refills, Maintenance, 06/25/21 12:00:00 EST, Capsule, [facility], Partial fill upon patient request [...] Replace Required Details, Route to Pharmacy Electronically, [facility], 160, cm, 07/07/23 15:02:00 EST, Height,... Start Date: 07/28/23 Status: Ordered furosemide 40 mg oral tablet 40 mg, 1, tablet, By Mouth, Daily, # 90 tablet, Refills 1, Tot. Refills 1, Maintenance, 03/02/23 18:12:00 EDT, Route to Pharmacy Electronically, [facility], Partial fill upon patient request if the prescription is for a schedule II opioid drug... Start Date: 03/02/23 Status: Ordered ipratropium nasal 21 mcg/inh spray See Instructions, INSTILL 2 SPRAYS IN EACH NOSTRIL TWO TIMES A DAY, # 30 mL, 11 Refills, Maintenance, 08/11/23 7:46:00 EST, [facility], 30, INSTILL 2 SPRAYS IN EACH [...] 07/01/23 14:32:00 EST, Route to Pharmacy Electronically, [facility], 160, cm, 06/26/23 11:21:00 EST, Height, 112.4, kg, 06/24/23 17:38:00 EST, Dry Weight Start Date: 07/01/23 Status: Ordered metFORMIN 500 mg oral tablet 1 tablet = 500 mg, By Mouth, 2 times a day, # 60 tablet, 5 Refills, Maintenance, 07/07/23 15:26:00 EST, Tablet, [facility], Partial fill upon patient request if the prescription is for a schedule II opioid drug., 160, cm, 07/07/23 15:02:00 EST... Start Date: 07/07/23 Stop Date: 01/03/24 Status: Ordered nicotine 21 mg/24 hr transdermal film, extended release 1 patch, Topically, Daily, # 30 patch, 3 Refills, Maintenance, 06/08/23 9:15:00 EST, [facility], 30, APPLY 1 PATCH TOPICALLY [...] tablet, 5 Refills, Maintenance, 04/10/23 16:03:00 EDT, [facility], 160, cm, 04/02/23 12:45:00 EDT, Height, 98.8, kg, 07/17/22 8:58:00 EST, Dry Weight Start Date: 04/10/23 Status: Ordered rOPINIRole 0.5 mg oral tablet 1 tablet, By Mouth, 3 times a day, ^1R1,1R3,1R4., # 90 tablet, 5 Refills, Maintenance, 05/09/23 20:56:00 EDT, [facility], [facility], cm, 04/02/23 12:45:00 EDT, Height, 98.8, kg, 07/17/22 8:58:00 EST, Dry Weight Start Date: 05/09/23 Status: Ordered rosuvastatin 10 mg oral tablet 1 tablet, By Mouth, Daily, ^1R1., # 30 tablet, 5 Refills, Maintenance, 07/01/23 14:33:00 EST, [facility], 160, cm, 06/26/23 11:21:00 EST, Height, 112.4, kg, 06/24/23 17:38:00 EST, Dry Weight Start Date: 07/01/23 Status: Ordered Symbicort 160mcg/4.5mcg Inhaler 2, puffs, Inhalation, 2 times a day, # 10.2 Gm, Refills 11, Tot. Refills 11, Maintenance, 06/03/23 11:47:00 EST, Aerosol, Route to Pharmacy Electronically, NCPDP_[id number], [facility], 160, cm, 06/03/23 11:30:00 EST, Height, 98.8, kg, ... Start Date: 06/03/23 Status: Ordered Xarelto 20 mg oral tablet 1 tablet, By Mouth, Daily in PM, ^1R4., # 30 tablet, 5 Refills, Maintenance, 08/11/23 11:28:00 EST,[facility], 160, cm, 07/07/23 15:02:00 EST, Height, [...] Team Personnel Name: Sandra Wills NP Position: [facility] PCO Associate Professional Member Role: Primary Care Nurse Address: Address: [address] [facility] [place] [address]- [place] Name: Marley Alejo RN Position: [facility] RN Member Role: Primary Care Nurse Name: Rashi Dewitt RN Position: [facility] RN Member Role: Primary Care Nurse Name: Alma Delia Fonseca PharmD Position: [facility] Associate Professional Member Role: Lifetime Consulting Provider Address: Address: [address] [facility] [place] [address]- [place] Name: Yolis Mattson RN Position: [facility] RN Member Role: Primary Care Nurse Name: Priscila Garzon RN Position: [facility] RN Member Role: Primary Care Nurse Name: Kyle Ahumada DO Position: [facility] Physician - Primary Care Member Role: PCP Address: Address: [address] [place] [address]- [place] Name: Renea Mart RN Position: [facility] RN Member Role: Primary Care Nurse Care Team Related Persons Name: FAUZIA JANSEN Address: home [address] [place] [address] Name: AURELIA SHETH Address: [address] [place] [address] Name: BRE OSORIO Address: [address] [place] [address]
--- OUTSIDE RECORDS SUMMARY | 2024-01-02 21:25 | XMS_ITS | Continuity of Care Document ---
Author Organization [facility] Address [address] [place] [address]- Care Team Providers Care Pharmacy Affairs Assistant Name Role Phone Krishan GRIDER, Eulogio Molina Primary Care Physician Encounter [facility] Date(s): 04/17/22 - 05/17/22 [facility] [address] [place] [address] Attending Physician: Desire Velasquez Admitting Physician: [...] vaccine, inactivated 05/10/07 Jarrett rded SARS-CoV-2 mRNA (vlydnet-eufq-feuxc) vax 08/30/21 Recorded SARS-CoV-2 (COVID-19) mRNA BNT-162b2 vac 01/02/21 Recorded SARS-CoV-2 (COVID-19) mRNA BNT-162b2 vac 12/02/20 Recorded Fluvirin (oldterm) 8 03/22/15 Given Fluzone Preservative-Free (oldterm) 9 03/12/12 Giv en pneumococcal 23-valent vaccine 10/08/11 Given tetanus/diphtheria/pertussis, acel(Tdap) 09/08/11 Given tetanus/diphtheria/pertussis, acel(Tdap) 12/17/06 Recorded influ virus vac, H1N1, inactive(oldterm) 10 05/08/11 Given hepatitis B adult vaccine 06/14/02 Recorded 1Result Comment: [id number] 2Result Comment: [id number] 3Result Comment: [id number] 4Result Comment: [id number] 5Result Comment: [07/08/2017] [id number] 6Admin Note: [facility] 7Admin Note: [facility] [...] Gm, 4 Refills, Maintenance, 04/28/22 13:11:00 EDT, [facility], 17, INHALE 2 PUFFS BY MOUTH EVERY FOUR HOURS NEEDED FOR WHEEZING... Start Date: 04/28/22 Status: Ordered cloNIDine 0.1 mg oral tablet See Instructions, TAKE 1 TABLET BY MOUTH TWICE A DAY NEEDED FOR FOR ANXIETY (VIAL), # 60 tablet,Refills 1, Maintenance, 04/28/22 13:11:00 EDT, Instructions Replace Required Details, Route to Pharmacy Electronically, [facility], 159, cm, 06... Start Date: 04/28/22 Status: Ordered colchicine 0.6 mg oral tablet 0.6 mg, 1, tablet, By Mouth, Daily, # 30 tablet, Refills 11, Tot. Refills 11, Maintenance, :00:00 EDT, Route to Pharmacy Electronically, [facility], Partial fill upon patient request [...] 01/11/22 7:25:00 EDT, Route to Pharmacy Electronically, [facility], Partial fill upon patient request if the prescri... Start Date: 01/11/22 Stop Date: 02/10/22 Status: Ordered duloxetine 20 mg oral enteric coated capsule 2 capsule = 40 mg, By Mouth, Daily at bedtime, # 60 capsule, 11 Refills, Maintenance, 06/25/21 12:00:00 EST, Capsule, [facility], Partial fill upon patient request [...] Replace Required Details, Route to Pharmacy Electronically, [facility], 165, cm, 06/25/21 11:35:00 EST, Height, 127, kg, 02/03/20 14:39:00 EDT, Dry Weight Start Date: 08/05/21 Status: Ordered penicillin V potassium 250 mg oral tablet 1 tablet, By Mouth, 2 times a day, CELLULITIS PROPHYLAXIS., # 60 tablet, 6 Refills, [facility], 165, cm, 11/08/21 10:02:00 EDT, Height, 127, kg, 02/03/20 14:39:00 EDT, Dry Weight Start Date: 11/15/21 Status: Ordered rOPINIRole 0.5 mg oral tablet 1 tablet, By Mouth, 3 times a day, # 90 tablet, 5 Refills, 03/07/22 6:14:00 EDT, [facility], 159, cm, 01/11/22 15:15:00 EDT, Height, 98.8, kg, 01/10/22 9:12:00 EDT, Dry Weight Start Date: 03/07/22 Status: Ordered rosuvastatin 10 mg oral tablet See Instructions, TAKE 1 TABLET BY MOUTH DAILY, # 90 tablet, 1 Refills, Maintenance, 04/04/22 11:35:00 EDT, [facility], 159, cm, 01/11/22 15:15:00 EDT, Height, 98.8, kg, 01/10/22 9:12:00 EDT,Dry Weight Start Date: 04/04/22 Status: Ordered Symbicort 80mcg/4.5mcg Inhaler See Instructions, INHALE 2 PUFFS BY MOUTH TWICE A DAY RINSE MOUTH AND THROAT AFTER USE, # 10.2 Gm, Refills 5, Instructions Replace Required Details, Route to Pharmacy Electronically, NCPDP_[id number], [facility], 159, cm, 01/11/22 15:15:00 EDT... Start Date: 02/13/22 Status: Ordered warfarin 1 mg oral tablet See Instructions, Take 1-10 tablets By Mouth Daily as directed by [facility], # 150 tablet, 0 Refills, Maintenance, 01/11/22 7:24:00 EDT, Tablet, [facility], Partial fill upon patient requestif the prescription is for a schedule II opioid keanuKatie. 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
--- OUTSIDE RECORDS SUMMARY | 2024-01-02 21:26 | XMS_ITS | Continuity of Care Document ---
Author Organization [facility] Nolberto Address [address] [place] [address]- Care Team Providers Care Web Ui Software Engineer Name Role Phone Radha GRIDER, Fuentes Kenny Primary Care Physician Encounter [facility] Date(s): 03/25/21 - 04/24/21 [facility] Adult [address] [place] [address]- Allergies, Adverse Reactions, Alerts Substance Reaction Severity [...] B adult vaccine 06/14/02 Recorded 1Result Comment: [id number] 2Result Comment: [id number] 3Result Comment: [07/08/2017] [id number] 4Admin Note: [facility] 5Admin Note: [facility] [...] 11 Refills, Maintenance, 10/31/20 14:14:00 EDT, Cream, [facility] #[id number], Partial fill upon patient request if the [...] 04/09/21 14:32:00 EDT, Route to Pharmacy Electronically, [facility], 165, cm, 02/28/21 14:22:00 EDT, Height, [...] PMR, history of smoking fax to : [phone], 04... Start Date: 10/26/20 Status: Ordered Disposable [...] Gm, 3 Refills, Maintenance, 06/22/20 14:58:00 EST, [facility] #[id number], 165, cm, 06/07/20 13:52:00 EST, Height, 127, [...] mL, 5 Refills, Maintenance, 10/01/18 10:08:42 EST, [place], 2 sprays Nares, Both 2 times a [...] 08/02/20 16:13:00 EST, Route to Pharmacy Electronically, [facility] #[id number], D/C RX ON FILE FOR ABRAM, 165, [...] 3 Refills, Maintenance, 02/25/21 10:31:00 EDT, Tablet, [facility] #[id number], Partial fill upon patient request if the prescription is for a schedule II opioid drug., 165, cm, 01/11/21 14:... Start Date: 02/25/21 Status: Ordered methenamine hippurate 1 gm oral tablet 1 tablet = 1 Gm, By Mouth, 2 times a day, # 60 tablet, 1 Refills, Maintenance, 07/12/20 13:56:00 EST, [facility] #[id number], Partial fill upon patient request if the prescription is for a schedule II opioid drug., 165, cm, 07/11/20 15:24:00 EST,... Start Date: 07/12/20 Stop Date: 07/05/21 Status: Ordered Metoprolol Tartrate 25 mg oral tablet 1 tablet, By Mouth, 2 times a day, # 60 tablet, 2 Refills, Maintenance, 03/07/21 10:08:00 EDT, [facility] #[id number], 165, cm, 02/28/21 14:22:00 EDT, Height, 127, kg, 02/03/20 14:39:00 EDT, DryWeight Start Date: 03/07/21 Status: Ordered Mitigare 0.6 mg oral capsule 1 capsule, By Mouth, Daily, # 30 capsule, 11 Refills, Maintenance, 12/31/20 16:51:00 EDT, [facility] #[id number], 165, cm, 11/19/20 11:32:00 EDT, Height, 127, [...] 0 Refills, Maintenance, 04/11/21 9:00:00 EDT, Patch, [facility], Partial fill upon patient request, 165, cm, 02/28/21 14:22:00 EDT, Height, 127, kg, 02/03/20 14:39:00 EDT, Dry Weight Start Date: 04/11/21 Stop Date: 05/23/21 Status: Ordered NuLYTELY with Flavor Packs oral powder for reconstitution See Instructions, Drink 240mL every 15-20 minutes until first half is gone. Repeat 6 hours prior toprocedure., # 4,000 mL, 0 Refills, Maintenance, 06/28/20 17:09:00 EST, [facility] #[id number],Partial fill upon patient request if the prescript... Start Date: 06/28/20 Status: Ordered oxyCODONE 10 mg oral tablet 1 tablet = 10 mg, By Mouth, Every 8 hours, DX Z79.891 G89.29 M47.816 OK TO FILL LESS THAN PRESCRIBED AMOUNT, # 84 tablet, 0 Refills, Maintenance, 04/22/21 16:41:00 EDT, Tablet, [facility] #[id number], 165, cm, 02/28/21 14:22:00 EDT, Height, 127,... Start Date: 04/22/21 Stop Date: 05/20/21 Status: Ordered oxyCODONE 5 mg oral tablet 10 mg, 2, tablet, By Mouth, Every 8 hours, DX Z79.891 G89.29 M47.816 OK TO FILL LESS THAN PRESCRIBED AMOUNT, # 168 tablet, Refills 0, Tot. Refills 0, Maintenance, 03/25/21 16:45:00 EDT, Route to Pharmacy Electronically, [facility] #[id number], D... Start Date: 03/25/21 Stop Date: 04/22/21 Status: Ordered penicillin V potassium 250 mg oral tablet 1 tablet = 250 mg, By Mouth, 2 times a day, Cellulitis prophylaxis, # 60 tablet, 11 Refills, Maintenance, 10/30/20 12:09:00 EDT, [facility] #[id number], 165, cm, 10/19/20 8:59:00 EDT, Height, 127, kg, 02/03/20 14:39:00 EDT, Dry Weight Start Date: 10/30/20 Status: Ordered predniSONE 5 mg oral tablet 1 tablet = 5 mg, By Mouth, Daily, # 30 tablet, 0 Refills, Maintenance, 01/11/21 14:20:00 EDT, Tablet, [facility] #[id number], Partial fill upon patient request if the [...] 1 Refills, Maintenance, 04/09/21 14:31:00 EDT, Tablet, [facility], 165, cm, 02/28/21 14:22:00 EDT, Height, 127, kg, 02/03/20 14:39:00 EDT, Dry Weight Start Date: 04/09/21 Status: Ordered rosuvastatin 10 mg oral tablet 1 tablet = 10 mg, By Mouth, Daily, # 90 tablet, 3 Refills, Maintenance, 05/03/20 16:35:00 EDT, Tablet, [facility] #[id number], d/c rx for capsules, 165, cm, 04/30/20 14:30:00 EDT, Height, 127, kg, 02/03/20 14:39:00 EDT, Dry Weight Start Date: 05/03/20 Status: Ordered Ventolin HFA 108 mcg/inh inhalation aerosol with adapter 2 puffs, Inhalation, Every 4 hours, PRN Wheezing/Shortness of Breath, # 1 each, 5 Refills, Soft Stop, 11/08/20 8:46:00 EDT, [facility] #[id number], 165, cm, 10/19/20 8:59:00 EDT, Height, 127, kg, 02/03/20 14:39:00 EDT, Dry Weight Start Date: 11/08/20 Status: Ordered warfarin 2.5 mg oral tablet See Instructions, take 2.5mg sun tu thurs sat subjet to change based on INR per MD, # 90 each, 3 Refills, Maintenance, 02/11/21 10:38:00 EDT, Tablet, [facility] #[id number], PLEASE GIVE THIS IN COMBINATION WITH 5MG TABLETS;, 165, cm, 01/11/21... 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
--- OUTSIDE RECORDS SUMMARY | 2024-01-02 21:26 | XMS_ITS | Continuity of Care Document ---
Author Organization [facility] Nolberto Address [address] [place] [address]- Care Team Providers Care Zyglo Inspector Name Role Phone Krishan GRIDER, Eulogio Molina Primary Care Physician [phone] Encounter [facility] Date(s): 05/28/22 - 06/27/22 [facility] Adult [address] [place] [address]- Allergies, Adverse Reactions, Alerts Substance Reaction Severity [...] vaccine, inactivated 05/10/07 Jarrett rded SARS-CoV-2 mRNA ([id number]) vax 08/30/21 Recorded SARS-CoV-2 (COVID-19) mRNA BNT-162b2 vac 01/02/21 Recorded SARS-CoV-2 (COVID-19) mRNA BNT-162b2 vac 12/02/20 Recorded Fluvirin (oldterm) 8 03/22/15 Given Fluzone Preservative-Free (oldterm) 9 03/12/12 Giv en pneumococcal 23-valent vaccine 10/08/11 Given tetanus/diphtheria/pertussis, acel(Tdap) 09/08/11 Given tetanus/diphtheria/pertussis, acel(Tdap) 12/17/06 Recorded influ virus vac, H1N1, inactive(oldterm) 10 05/08/11 Given hepatitis B adult vaccine 06/14/02 Recorded 1Result Comment: [id number] 2Result Comment: [id number] 3Result Comment: [id number] 4Result Comment: [id number] 5Result Comment: [07/08/2017] [id number] 6Admin Note: [facility] 7Admin Note: [facility] [...] Gm, 4 Refills, Maintenance, 04/28/22 13:11:00 EDT, [facility], 17, INHALE 2 PUFFS BY MOUTH EVERY FOUR HOURS NEEDED FOR WHEEZING... Start Date: 04/28/22 Status: Ordered cloNIDine 0.1 mg oral tablet See Instructions, TAKE 1 TABLET BY MOUTH TWICE A DAY NEEDED FOR FOR ANXIETY (VIAL), # 60 tablet,Refills 1, Maintenance, 04/28/22 13:11:00 EDT, Instructions Replace Required Details, Route to Pharmacy Electronically, [facility], 159, cm, 06... Start Date: 04/28/22 Status: Ordered colchicine 0.6 mg oral tablet 0.6 mg, 1, tablet, By Mouth, Daily, # 30 tablet, Refills 11, Tot. Refills 11, Maintenance, 227:00:00 EDT, Route to Pharmacy Electronically, [facility], Partial fill upon patient request if the prescription is for a schedule II opioid dr... Start Date: 10/30/21 Status: Ordered digoxin 0.125 mg oral tablet 1, tablet, By Mouth, Daily, # 90 tablet, Refills 0, Maintenance, 05/29/22 6:33:00 EDT, Route to Pharmacy Electronically, [facility], 159, cm, 05/05/22 11:32:00 EDT, Height, 98.8, kg, 229:12:00 EDT, Dry Weight Start Date: 05/29/22 Status: Ordered docusate sodium 100 mg oral capsule 100 mg, 1, capsule, By Mouth, 2 times a day, hold for loose stool, # 60 capsule, Refills 0, Tot. Refills 0, Maintenance, 01/11/22 7:25:00 EDT, Route to Pharmacy Electronically, [facility], Partial fill upon patient request if the prescri... Start Date: 01/11/22 Stop Date: 02/10/22 Status: Ordered duloxetine 20 mg oral enteric coated capsule 2 capsule = 40 mg, By Mouth, Daily at bedtime, # 60 capsule, 11 Refills, Maintenance, 06/25/21 12:00:00 EST, Capsule, [facility], Partial fill upon patient [...] Replace Required Details, Route to Pharmacy Electronically, [facility], 165, cm, 06/25/21 11:35:00 EST, Height, 127, kg, 02/03/20 14:39:00 EDT, Dry Weight Start Date: 08/05/21 Status: Ordered penicillin V potassium 250 mg oral tablet 1 tablet, By Mouth, 2 times a day, CELLULITIS PROPHYLAXIS., # 60 tablet, 5 Refills, Maintenance, 05/29/22 6:19:00 EDT, [facility], 159, cm, 05/05/22 11:32:00 EDT, Height, 98.8, kg, 01/10/22 9:12:00 EDT, Dry Weight Start Date: 05/29/22 Status: Ordered rOPINIRole 0.5 mg oral tablet 1 tablet, By Mouth, 3 times a day, # 90 tablet, 5 Refills, 03/07/22 6:14:00 EDT, [facility], 159, cm, 01/11/22 15:15:00 EDT, Height, 98.8, kg, 01/10/22 9:12:00 EDT, Dry Weight Start Date: 03/07/22 Status: Ordered rosuvastatin 10 mg oral tablet See Instructions, TAKE 1 TABLET BY MOUTH DAILY, # 90 tablet, 1 Refills, Maintenance, 04/04/22 11:35:00 EDT, [facility], 159, cm, 01/11/22 15:15:00 EDT, Height, 98.8, kg, 01/10/22 9:12:00 EDT,Dry Weight Start Date: 04/04/22 Status: Ordered Symbicort 80mcg/4.5mcg Inhaler See Instructions, INHALE 2 PUFFS BY MOUTH TWICE A DAY RINSE MOUTH AND THROAT AFTER USE, # 10.2 Gm, Refills 5, Instructions Replace Required Details, Route to Pharmacy Electronically, [id number], [facility], 159, cm, 01/11/22 15:15:00 EDT... 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 [...] Team Personnel Name: Sandra Wills NP Position: [facility] PCO Associate Professional Member Role: Primary Care Nurse Address: Address: [address] [place] [address] [place] [address]- [place] Name: Marley Alejo RN Position: [facility] ED RN W/OE and Tasks Member Role: Primary Care Nurse Name: Eulogio Nickerson MD Position: [facility] Primary Care Physician Member Role: PCP Address: Address: [address] [place] [address]- [place] Name: Alma Delia Fonseca PharmD Position: [facility] Associate Professional Member Role: Lifetime Consulting Provider Address: Address: [address] [place] [address] [place] [address]- [place] Name: Yolis Mattson RN Position: [facility] RN Member Role: Primary Care Nurse Name: Priscila Garzon RN Position: [facility] RN Member Role: Primary Care Nurse Care Team Related Persons Name: FAUZIA JANSEN Address: home [address] [place] [address] Name: ANDRA JANSEN Address: [address] [place] [address] Name: AURELIA SHETH Address: [address] [place] [address] Name: BRE OSORIO Address: [address] [place] [address]
--- OUTSIDE RECORDS SUMMARY | 2024-01-02 21:26 | XMS_ITS | Continuity of Care Document ---
Author Organization [facility] Nolberto lt Address [address] [place] [address]- Care Team Providers Care Commission Sales Associate Name Role Phone Radha GRIDER, Fuentes Kenny Primary Care Physician Encounter [facility] Date(s): 08/02/20 - 09/01/20 [facility] Adult [address] [place] [address]- Allergies, Adverse Reactions, Alerts Substance Reaction Severity [...] H1N1, inactive(oldterm) 8 05/08/11 Given 1Result Comment: [id number] 2Result Comment: [id number] 3Result Comment: [07/08/2017] [id number] 4Admin Note: [facility] 5Admin Note: [facility] [...] 5 Refills, Maintenance, 07/03/20 9:16:00 EST, Cream, [facility] #[id number], Partial fill upon patient request if the [...] 06/04/20 12:56:00 EST, Route to Pharmacy Electronically, [facility] #[id number], please schedule appt for further refills, 165, cm, 05/16/20 14:15:00 EDT, Hei... Start Date: 06/04/20 Status: Ordered Claritin 10 mg oral tablet 10 mg, 1, tablet, By Mouth, Daily, for 90 days, # 90 tablet, Refills 3, Tot. Refills 3, Acute 07/28/21 15:22:00 EST, 08/02/20 15:22:00 EST, Route to Pharmacy Electronically, [facility] #[id number], 165, cm, 07/31/20 14:32:00 EST, Height, 127, kg,... Start Date: 08/02/20 Stop Date: 07/28/21 Status: Ordered colchicine 0.6 mg oral tablet See Instructions, take 1 tablet by mouth once daily if needed for PSEUDOGOUT pain, # 30 tablet, Refills 5, Tot. Refills 5, Soft Stop, 01/05/20 8:41:00 EDT, Instructions Replace Required Details, Route to Pharmacy Electronically, [facility] #... Start Date: 01/05/20 Status: Ordered Disposable [...] Gm, 3 Refills, Maintenance, 06/22/20 14:58:00 EST, [facility] #[id number], 165, cm, 06/07/20 13:52:00 EST, Height, 127, [...] mL, 5 Refills, Maintenance, 10/01/18 10:08:42 EST, [place], 2 sprays Nares, Both 2 times a [...] 08/02/20 16:13:00 EST, Route to Pharmacy Electronically, [facility] #[id number], D/C RX ON FILE FOR ABRAM, 165, [...] 09/29/20 14:57:00 EST, 07/31/20 14:57:00 EST, Capsule, [facility] #[id number], Partial fill upon patient request if the prescription is for a schedule II opi... Start Date: 07/31/20 Stop Date: 09/29/20 Status: Ordered methenamine hippurate 1 gm oral tablet 1 tablet = 1 Gm, By Mouth, 2 times a day, # 60 tablet, 1 Refills, Maintenance, 07/12/20 13:56:00 EST, [facility] #[id number], Partial fill upon patient request if the prescription is for a schedule II opioid drug., 165, cm, 07/11/20 15:24:00 EST,... Start Date: 07/12/20 Stop Date: 07/05/21 Status: Ordered metoprolol 25 mg oral tablet 25 mg, 1, tablet, By Mouth, 2 times a day, # 60 tablet, Refills 5, Tot. Refills 5, Maintenance, 03/22/20 16:34:00 EDT, Route to Pharmacy Electronically, [facility] #[id number], 165, cm, 02/02/2014:39:00 EDT, Height, 127, kg, [...] 0 Refills, Maintenance, 06/18/20 16:57:00 EST, Patch, [facility] #[id number], Partial fill upon patient request, 165, cm, 06/07/20 13:52:00 EST, Height, 127, kg, 02/03/20 14:39:00 EDT, Dry Weight Start Date: 06/18/20 Stop Date: 07/30/20 Status: Ordered NuLYTELY with Flavor Packs oral powder for reconstitution See Instructions, Drink 240mL every 15-20 minutes until first half is gone. Repeat 6 hours prior toprocedure., # 4,000 mL, 0 Refills, Maintenance, 06/28/20 17:09:00 EST, [facility] #[id number],Partial fill upon patient request if the prescript... Start Date: 06/28/20 Status: Ordered oxyCODONE 10 mg oral tablet 1 tablet = 10 mg, By Mouth, Every 8 hours, DX Z79.891 G89.29 M47.816 OK TO FILL LESS THAN PRESCRIBED AMOUNT, # 84 tablet, 0 Refills, Maintenance, 08/14/20 14:32:00 EST, Tablet, [facility] #[id number], 08/14/20, 165, cm, 07/31/20 14:32:00 EST, He... [...] 5 Refills, Maintenance, 04/30/20 15:13:00 EDT, Tablet, [facility] #[id number], 165, cm, 04/30/20 14:30:00 EDT, Height, 127, kg, 02/03/20 14:39:00 EDT, Dry Weight Start Date: 04/30/20 Status: Ordered rosuvastatin 10 mg oral tablet 1 tablet = 10 mg, By Mouth, Daily, # 90 tablet, 3 Refills, Maintenance, 05/03/20 16:35:00 EDT, Tablet, [facility] #[id number], d/c rx for capsules, 165, cm, 04/30/20 14:30:00 EDT, Height, 127, kg, 02/03/20 14:39:00 EDT, Dry Weight Start Date: 05/03/20 Status: Ordered Ventolin HFA 108 mcg/inh inhalation aerosol with adapter 2 puffs, Inhalation, Every 4 hours, PRN Wheezing/Shortness of Breath, # 1 each, 11 Refills, Soft Stop, 01/19/20 11:46:00 EDT, [facility] #[id number], 165, cm, 01/16/20 6:17:00 EDT, Height, 128.1, kg, 01/16/20 6:17:00 EDT, Dry Weight Start Date: 01/19/20 Status: Ordered warfarin 5 mg oral tablet 1 tablet = 5 mg, By Mouth, Daily, dosing subject to change pending inr lab values, # 30 tablet, 11 Refills, Maintenance, 08/31/20 15:36:00 EST, Tablet, [facility] #[id number], 165, cm, 07/31/20 14:32:00 EST, Height, 127, [...]
--- OUTSIDE RECORDS SUMMARY | 2024-01-02 21:26 | XMS_ITS | Continuity of Care Document ---
Author Organization [facility] Address [address] [place] [address]- Care Team Providers Care Knife Operator Name Role Phone Krishan GRIDER, Eulogio Molina Primary Care Physician [phone] [place] [facility] [place] 10/21[place]21 - 11/20/21 [facility] [address] [place] [address]- Allergies, Adverse Reactions, Alerts Substance Reaction Severity Status Adhesive Bandage Active Dust copd exac/sinus congestion A ctive Immunizations Given and Recorded Vaccine Date Status Refusal Reason SARS-CoV-2 mRNA (iimkewr-gkes-cyoto) vax 08/30/21 Recorded influenza virus vaccine, inactivated 1 06/25/21 Gi octavio influenza virus vaccine, inactivated 2 04/30/20 Gi octavio influenza virus vaccine, inactivated 3 05/23/19 Gi octavio influenza virus vaccine, inactivated 04/27/18 Give n influenza virus vaccine, inactivated 4 07/08/17 Gi otcavio influenza virus vaccine, inactivated 5 04/01/17 Gi [...] B adult vaccine 06/14/02 Recorded 1Result Comment: [id number] 2Result Comment: [id number] 3Result Comment: [id number] 4Result Comment: [07/08/2017] [id number] 5Admin Note: [facility] 6Admin Note: [facility] [...] 8.5 Gm, 5 Refills, 05/29/21 17:13:00 EDT, [facility] #[id number], 17, INHALE 2 PUFFS BY MOUTH EVERY 4 HOURS NEEDED FOR WHEEZING OR SHORTNE... Start Date: 05/29/21 Status: Ordered calcipotriene 0.005% topical cream 1 application, Topically, 2 times a day, # 60 Gm, 11 Refills, Maintenance, 11/15/21 11:54:00 EDT, Cream, [facility], Partial fill upon patient request if the prescription is for a schedule IIopioid drug., 1 application Topically 2 times a day... Start Date: 11/15/21 Status: Ordered colchicine 0.6 mg oral tablet 0.6 mg, 1, tablet, By Mouth, Daily, # 30 tablet, Refills 11, Tot. Refills 11, Maintenance, :00:00 EDT, Route to Pharmacy Electronically, [facility], Partial fill upon patient request if the prescription is for a schedule II opioid .. Start Date: 10/30/21 Status: Ordered cyclobenzaprine 10 mg oral tablet See Instructions, PRN, 1 tablet By Mouth 3 times a day as needed, # 20 tablet, Refills 0, Tot. Refills 0, Maintenance, for spasm, 11/08/21 10:23:00 EDT, Instructions Replace Required Details, Route to Pharmacy Electronically, [facility] #[id number]... Start Date: 11/08/21 Status: Ordered duloxetine 20 mg oral enteric coated capsule 2 capsule = 40 mg, By Mouth, Daily at bedtime, # 60 capsule, 11 Refills, Maintenance, 06/25/21 12:00:00 EST, Capsule, [facility], Partial fill upon patient request if the prescription is for a schedule II opioid drug., 165madi, 06/25/21 11:35:... Start Date: 06/25/21 Status: Ordered [...] 5 Refills, Maintenance, 11/18/21 13:49:00 EDT, Tablet, [facility], Partial fill upon patient [...] Details, Route to Pharmacy Electronically, [facility], 165, cm, 06/25/21 11:35:00 EST, Height, 127, kg, 02/03/20 14:39:00 EDT, Dry Weight Start Date: 08/05/21 Status: Ordered metFORMIN 500 mg oral tablet 2 tablet = 1,000 mg, By Mouth, 2 times a day, please take 2 tabs twice a day E11.9, # 120 tablet, 6Refills, Maintenance, 05/21/21 11:19:00 EDT, Tablet, [facility], Partial fill upon patient request if the prescription is for a schedule II... Start Date: 05/21/21 Status: Ordered methenamine hippurate 1 gm oral tablet 1 tablet = 1 Gm, By Mouth, 2 times a day, # 60 tablet, 11 Refills, Maintenance, 07/05/21 14:00:00 EST, [facility], Partial fill upon patient request if the prescription is for a schedule II opioid drug., 165, cm, 02/28/21 14:22:00 EDT, Height,... Start Date: 07/05/21 Status: Ordered Metoprolol Tartrate 25 mg oral tablet 1 tablet, By Mouth, 2 times a day, # 60 tablet, 2 Refills, Maintenance, 11/18/21 13:47:00 EDT, [facility], 165, cm, 11/18/21 13:18:00 EDT, Height, 127, kg, 02/03/20 14:39:00 EDT, Dry Weight Start Date: 11/18/21 Status: Ordered NuLYTELY with Flavor Packs oral powder for reconstitution 240 mL, By Mouth, Every 10 minutes, # 1 each, 0 Refills, Maintenance, 10/25/21 10:39:00 EDT, REC Powder, [facility], Partial fill upon patient request if the prescription is for a schedule IIopioid drug., 240 mL By Mouth Every 10 minutes, 165... Start Date: 10/25/21 Status: Ordered penicillin V potassium 250 mg oral tablet 1 tablet, By Mouth, 2 times a day, CELLULITIS PROPHYLAXIS., # 60 tablet, 6 Refills, [facility], 165, cm, 11/08/21 10:02:00 EDT, Height, 127, kg, 02/03/20 14:39:00 EDT, Dry Weight Start Date: 11/15/21 Status: Ordered rOPINIRole 0.5 mg oral tablet 1 tablet, By Mouth, 3 times a day, # 90 tablet, 5 Refills, 11/08/21 9:01:00 EDT, [facility], 165, cm, 11/04/21 8:42:00 EDT, Height, 127, kg, 02/03/20 14:39:00 EDT, Dry Weight Start Date: 11/08/21 Status: Ordered rosuvastatin 10 mg oral tablet See Instructions, TAKE 1 TABLET BY MOUTH DAILY, # 90 tablet, 1 Refills, Maintenance, 10/18/21 21:30:00 EDT, [facility], 165, cm, 09/04/21 14:01:00 EST, Height, 127, kg, 02/03/20 14:39:00 EDT,Dry Weight Start Date: 10/18/21 Status: Ordered warfarin 2.5 mg oral tablet See Instructions, Dosing Subject To Change per INR Result per MD, # 30 each, 6 Refills, Maintenance, 06/12/21 17:09:00 EST, Tablet, [facility], Dosing Subject To Change per INR Result per MD,165, cm, 05/21/21 10:54:00 EDT, Height, 127, kg, 07... Start Date: 06/12/21 Status: Ordered warfarin 5 mg oral tablet See Instructions, Dosing Subject To Change Per INR Result per MD, # 30 each, 6 Refills, Maintenance, 06/12/21 17:05:00 EST, Tablet, [facility], PLEASE GIVE BOTH 5MG TABLETS AND [...]
--- OUTSIDE RECORDS SUMMARY | 2024-01-02 21:26 | XMS_ITS | Continuity of Care Document ---
Author Organization [facility] Robin Jane Nolberto lt Address [address] [place] [address]- Care Team Providers Care Engagement Engineer Name Role Phone Radha GRIDER, Fuentes Kenny Primary [facility] - 09[facility]07[facility]20 [facility] Adult [address] [place] [address]- Allergies, Adverse Reactions, Alerts Substance Reaction Severity [...] H1N1, inactive(oldterm) 8 05/08/11 Given 1Result Comment: [id number] 2Result Comment: [id number] 3Result Comment: [07/08/2017] [id number] 4Admin Note: [facility] 5[facility] Note: [facility] [...] 5 Refills, Maintenance, 07/03/20 9:16:00 EST, Cream, [facility] #[id number], Partial fill upon patient request if the [...] 06/04/20 12:56:00 EST, Route to Pharmacy Electronically, [facility] #[id number], please schedule appt for further refills, 165, cm, 05/16/20 14:15:00 EDT, Hei... Start Date: 06/04/20 Status: Ordered Claritin 10 mg oral tablet 10 mg, 1, tablet, By Mouth, Daily, for 90 days, # 90 tablet, Refills 3, Tot. Refills 3, Acute 07/28/21 15:22:00 EST, 08/02/20 15:22:00 EST, Route to Pharmacy Electronically, [facility] #[id number], 165, cm, 07/31/20 14:32:00 EST, Height, 127, kg,... Start Date: 08/02/20 Stop Date: 07/28/21 Status: Ordered colchicine 0.6 mg oral tablet See Instructions, take 1 tablet by mouth once daily if needed for PSEUDOGOUT pain, # 30 tablet, Refills 5, Tot. Refills 5, Soft Stop, 01/05/20 8:41:00 EDT, Instructions Replace Required Details, Route to Pharmacy Electronically, [facility] #... Start Date: 01/05/20 Status: Ordered Disposable [...] Gm, 3 Refills, Maintenance, 06/22/20 14:58:00 EST, [facility] #[id number], 165, cm, 06/07/20 13:52:00 EST, Height, 127, [...] mL, 5 Refills, Maintenance, 10/01/18 10:08:42 EST, [place], 2 sprays Nares, Both 2 times a [...] 08/02/20 16:13:00 EST, Route to Pharmacy Electronically, [facility] #[id number], D/C RX ON FILE FOR ABRAM, 165, [...] 09/29/20 14:57:00 EST, 07/31/20 14:57:00 EST, Capsule, [facility] #[id number], Partial fill upon patient request if the prescription is for a schedule II opi... Start Date: 07/31/20 Stop Date: 09/29/20 Status: Ordered methenamine hippurate 1 gm oral tablet 1 tablet = 1 Gm, By Mouth, 2 times a day, # 60 tablet, 1 Refills, Maintenance, 07/12/20 13:56:00 EST, [facility] #[id number], Partial fill upon patient request if the prescription is for a schedule II opioid drug., 165, cm, 07/11/20 15:24:00 EST,... Start Date: 07/12/20 Stop Date: 07/05/21 Status: Ordered metoprolol 25 mg oral tablet 25 mg, 1, tablet, By Mouth, 2 times a day, # 60 tablet, Refills 5, Tot. Refills 5, Maintenance, 03/22/20 16:34:00 EDT, Route to Pharmacy Electronically, [facility] #[id number], 165, cm, 02/02/2014:39:00 EDT, Height, 127, kg, [...] 0 Refills, Maintenance, 06/18/20 16:57:00 EST, Patch, [facility] #[id number], Partial fill upon patient request, 165, cm, 06/07/20 13:52:00 EST, Height, 127, kg, 02/03/20 14:39:00 EDT, Dry Weight Start Date: 06/18/20 Stop Date: 07/30/20 Status: Ordered NuLYTELY with Flavor Packs oral powder for reconstitution See Instructions, Drink 240mL every 15-20 minutes until first half is gone. Repeat 6 hours prior toprocedure., # 4,000 mL, 0 Refills, Maintenance, 06/28/20 17:09:00 EST, [facility] #[id number],Partial fill upon patient request if the prescript... Start Date: 06/28/20 Status: Ordered oxyCODONE 10 mg oral tablet 1 tablet = 10 mg, By Mouth, Every 8 hours, DX Z79.891 G89.29 M47.816 OK TO FILL LESS THAN PRESCRIBED AMOUNT, # 84 tablet, 0 Refills, Maintenance, 08/14/20 14:32:00 EST, Tablet, [facility] #[id number], 08/14/20, 165, cm, 07/31/20 14:32:00 EST, He... [...] 5 Refills, Maintenance, 04/30/20 15:13:00 EDT, Tablet, [facility] #[id number], 165, cm, 04/30/20 14:30:00 EDT, Height, 127, kg, 02/03/20 14:39:00 EDT, Dry Weight Start Date: 04/30/20 Status: Ordered rosuvastatin 10 mg oral tablet 1 tablet = 10 mg, By Mouth, Daily, # 90 tablet, 3 Refills, Maintenance, 05/03/20 16:35:00 EDT, Tablet, [facility] #[id number], d/c rx for capsules, 165, cm, 04/30/20 14:30:00 EDT, Height, 127, kg, 02/03/20 14:39:00 EDT, Dry Weight Start Date: 05/03/20 Status: Ordered Ventolin HFA 108 mcg/inh inhalation aerosol with adapter 2 puffs, Inhalation, Every 4 hours, PRN Wheezing/Shortness of Breath, # 1 each, 11 Refills, Soft Stop, 01/19/20 11:46:00 EDT, [facility] #[id number], 165, cm, 01/16/20 6:17:00 EDT, Height, 128.1, kg, 01/16/20 6:17:00 EDT, Dry Weight Start Date: 01/19/20 Status: Ordered warfarin 5 mg oral tablet 1 tablet = 5 mg, By Mouth, Daily, dosing subject to change pending inr lab values, # 30 tablet, 11 Refills, Maintenance, 08/31/20 15:36:00 EST, Tablet, [facility] #[id number], 165, cm, 07/31/20 14:32:00 EST, Height, 127, [...]
--- OUTSIDE RECORDS SUMMARY | 2024-01-02 21:26 | XMS_ITS | Continuity of Care Document ---
Author Organization [facility] Robin Jane Nolberto Address [address] [place] [address]- Care Team Providers Care Enamel Finisher Name Role Phone Fuentes Garcia MD Primary Care Physician [facility] - 10[facility]25/20 [facility] Robin Bolañosley Adult [address] [place] [address]- Allergies, Adverse Reactions, Alerts Substance Reaction Severity [...] H1N1, inactive(oldterm) 8 05/08/11 Given 1Result Comment: [id number] 2Result Comment: [id number] 3Result Comment: [07/08/2017] [id number] 4Admin Note: [facility] 5Admin Note: [facility] [...] 5 Refills, Maintenance, 07/03/20 9:16:00 EST, Cream, [facility] #[id number], Partial fill upon patient request if the [...] 06/04/20 12:56:00 EST, Route to Pharmacy Electronically, [facility] #[id number], please schedule appt for further refills, 165, cm, 05/16/20 14:15:00 EDT, Hei... Start Date: 06/04/20 Status: Ordered Claritin 10 mg oral tablet 10 mg, 1, tablet, By Mouth, Daily, for 90 days, # 90 tablet, Refills 3, Tot. Refills 3, Acute 07/28/21 15:22:00 EST, 08/02/20 15:22:00 EST, Route to Pharmacy Electronically, [facility] #[id number], 165, cm, 07/31/20 14:32:00 EST, Height, 127, kg,... Start Date: 08/02/20 Stop Date: 07/28/21 Status: Ordered colchicine 0.6 mg oral tablet See Instructions, take 1 tablet by mouth once daily if needed for PSEUDOGOUT pain, # 30 tablet, Refills 5, Tot. Refills 5, Soft Stop, 01/05/20 8:41:00 EDT, Instructions Replace Required Details, Route to Pharmacy Electronically, [facility] #... Start Date: 01/05/20 Status: Ordered COVID 19 vaccine COVID 19 vaccine, See Instructions, # 1 each, Refills 0, Tot. Refills 0, Maintenance, Pt requested to get Covid 19 vaccine in the home offered per [facility]. Due to pt homebound. Ok per . [facility] needsorder per PCP faxed to them so [facility] can place pt on... Start Date: 10/25/20 Status: Ordered Disposable Absorbant Pads 23 x [...] Gm, 3 Refills, Maintenance, 06/22/20 14:58:00 EST, [facility] #[id number], 165, cm, 06/07/20 13:52:00 EST, Height, 127, [...] mL, 5 Refills, Maintenance, 10/01/18 10:08:42 EST, [place], 2 sprays Nares, Both 2 times a [...] 08/02/20 16:13:00 EST, Route to Pharmacy Electronically, [facility] #[id number], D/C RX ON FILE FOR [place], 165, [...] tablet, 1 Refills, Maintenance, 07/12/20 13:56:00 EST, [facility] #[id number], Partial fill upon patient request if the prescription is for a schedule II opioid drug., 165, cm, 07/11/20 15:24:00 EST,... Start Date: 07/12/20 Stop Date: 07/05/21 Status: Ordered metoprolol 25 mg oral tablet 25 mg, 1, tablet, By Mouth, 2 times a day, # 60 tablet, Refills 5, Tot. Refills 5, Maintenance, 09/22/20 13:59:00 EST, Route to Pharmacy Electronically, [facility] #[id number], 165, cm, 07/31/2113:32:00 EST, Height, 127, kg, [...] 0 Refills, Maintenance, 06/18/20 16:57:00 EST, Patch, [facility] #[id number], Partial fill upon patient request, 165, cm, 06/07/20 13:52:00 EST, Height, 127, kg, 02/03/20 14:39:00 EDT, Dry Weight Start Date: 06/18/20 Stop Date: 07/30/20 Status: Ordered NuLYTELY with Flavor Packs oral powder for reconstitution See Instructions, Drink 240mL every 15-20 minutes until first half is gone. Repeat 6 hours prior toprocedure., # 4,000 mL, 0 Refills, Maintenance, 06/28/20 17:09:00 EST, [facility] #[id number],Partial fill upon patient request if the prescript... Start Date: 06/28/20 Status: Ordered oxyCODONE 10 mg oral tablet 1 tablet = 10 mg, By Mouth, Every 8 hours, DX Z79.891 G89.29 M47.816 OK TO FILL LESS THAN PRESCRIBED AMOUNT, # 84 tablet, 0 Refills, Maintenance, 10/08/20 16:54:00 EDT, Tablet, [facility] #[id number], 10/09/20, 165, cm, 07/31/20 14:32:00 EST, He... [...] 0 Refills, Maintenance, 10/12/20 9:55:00 EDT, Tablet, [facility] #[id number], Partial fill upon patient request if the [...] 5 Refills, Maintenance, 04/30/20 15:13:00 EDT, Tablet, [facility] #[id number], 165, cm, 04/30/20 14:30:00 EDT, Height, 127, kg, 02/03/20 14:39:00 EDT, Dry Weight Start Date: 04/30/20 Status: Ordered rosuvastatin 10 mg oral tablet 1 tablet = 10 mg, By Mouth, Daily, # 90 tablet, 3 Refills, Maintenance, 05/03/20 16:35:00 EDT, Tablet, [facility] #[id number], d/c rx for capsules, 165, cm, 04/30/20 14:30:00 EDT, Height, 127, kg, 02/03/20 14:39:00 EDT, Dry Weight Start Date: 05/03/20 Status: Ordered Ventolin HFA 108 mcg/inh inhalation aerosol with adapter 2 puffs, Inhalation, Every 4 hours, PRN Wheezing/Shortness of Breath, # 1 each, 11 Refills, Soft Stop, 01/19/20 11:46:00 EDT, [facility] #[id number], 165, cm, 01/16/20 6:17:00 EDT, Height, 128.1, kg, 01/16/20 6:17:00 EDT, Dry Weight Start Date: 01/19/20 Status: Ordered warfarin 5 mg oral tablet 1 tablet = 5 mg, By Mouth, Daily, dosing subject to change pending inr lab values, # 30 tablet, 11 Refills, Maintenance, 08/31/20 15:36:00 EST, Tablet, [facility] #[id number], 165, cm, 07/31/20 14:32:00 EST, Height, 127, [...] pain syndrome(Confirmed) Active Cigarette smoker(Confirmed) 7/19/12 Active COPD (chronic obstructive pu lmonary disease)(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 (polymyalgia rheumatica)(Confirmed) Active Prophylactic antibiotic - da jodran Pen VK for lymphedema , prevention of [...]
--- OUTSIDE RECORDS SUMMARY | 2024-01-02 21:26 | XMS_ITS | Continuity of Care Document ---
Author [facility] Address [address] [place] [address], [address] [place] [address]- Care Team Providers Care Credit Checker Name Role Phone Radha GRIDER, Fuentes Kenny Primary Care Physician [facility] - [facility]29/20 [facility] [address] [place] [address]- [facility] Allergies, Adverse Reactions, Alerts Substance [...] H1N1, inactive(oldterm) 7 05/08/11 Given 1Result Comment: [id number] 2Result Comment: [07/08/2017] [id number] 3Admin Note: [facility] 4Admin Note: [facility] [...] 12/06/19 9:16:00 EDT, Route to Pharmacy Electronically, [facility] #[id number], please schedule appt for further refills, 162, cm, 09/21/19 12:01:00 Laurie SPAIN... Start Date: 12/06/19 Status: Ordered Claritin 10 mg oral tablet 10 mg, 1, tablet, By Mouth, Daily, for 30 days, # 30 tablet, Refills 11, Tot. Refills 11, Acute 05/11/20 17:36:41 EDT, 05/17/19 17:36:41 EDT, Route to Pharmacy Electronically, [id number], [facility] - [address] [place] [address] Start Date: 05/17/19 Stop Date: 05/11/20 Status: Ordered colchicine 0.6 mg oral tablet See Instructions, take 1 tablet by mouth once daily if needed for PSEUDOGOUT pain, # 30 tablet, Refills 5, Tot. Refills 5, Soft Stop, 01/05/20 8:41:00 EDT, Instructions Replace Required Details, Route to Pharmacy Electronically, [facility] #... Start Date: 01/05/20 Status: Ordered [...] Gm, 1 Refills, Maintenance, 12/20/19 16:30:00 EDT, [facility] #[id number], 162, cm, 09/21/19 12:01:00 EST, Height, 116.4, [...] mL, 5 Refills, Maintenance, 10/01/18 10:08:42 EST, [place], 2 sprays Nares, Both 2 times a [...] 03/22/20 16:34:00 EDT, Route to Pharmacy Electronically, [facility] #[id number], 165, cm, 02/02/2014:39:00 EDT, Height, 127, kg, [...] 0 Refills, Maintenance, 04/23/20 12:56:00 EDT, Tablet, [facility] #[id number], 04/24/20, 165, cm, 02/03/20 14:39:00 EDT, He... 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
--- OUTSIDE RECORDS SUMMARY | 2024-01-02 21:26 | XMS_ITS | Continuity of Care Document ---
Author Organization [facility] Robin Jane Nolberto lt Address [address] [place] [address]- Care Team Providers Care Gum Machine Filler Name Role Phone Fuentes Garcia MD Primary Care Physician [facility]20 - 04[facility]07/20 [facility] Adult [address] [place] [address]- [facility] Allergies, Adverse Reactions, Alerts Substance Reaction Severity Status Dust copd exac/sinus congestion A ctive Immunizations Given and Recorded Vaccine Date Status Refusal Reason influenza virus vaccine, inactivated 1 05/23/19 Gi octavio influenza virus vaccine, inactivated 04/27/18 Give n influenza virus vaccine, inactivated 2 07/08/17 Gi octavio influenza virus vaccine, inactivated 3 04/01/17 Gi octaivo influenza virus vaccine, inactivated 08/12/16 Jarrett rded influenza virus vaccine, inactivated 05/23/14 Give n influenza virus vaccine, inactivated 4 06/07/13 Gi octavio Fluvirin (oldterm) 5 03/22/15 Given Fluzone Preservative-Free (oldterm) 6 03/12/12 Giv en pneumococcal 23-valent vaccine 10/08/11 Given tetanus/diphtheria/pertussis, acel(Tdap) 09/08/11 Given influ virus vac, H1N1, inactive(oldterm) 7 05/08/11 Given 1Result Comment: [id number] 2Result Comment: [07/08/2017] [id number] 3Admin Note: [facility] 4Admin Note: [facility] [...] 12/06/19 9:16:00 EDT, Route to Pharmacy Electronically, [facility] #[id number], please schedule appt for further refills, 162, cm, 09/21/19 12:01:00 Sydney SPAIN. Start Date: 12/06/19 Status: Ordered Claritin 10 mg oral tablet 10 mg, 1, tablet, By Mouth, Daily, for 30 days, # 30 tablet, Refills 11, Tot. Refills 11, Acute 05/11/20 17:36:41 EDT, 05/17/19 17:36:41 EDT, Route to Pharmacy Electronically, [id number], [facility] - [address] [place] [address] Start Date: 05/17/19 Stop Date: 05/11/20 Status: Ordered colchicine 0.6 mg oral tablet See Instructions, take 1 tablet by mouth once daily if needed for PSEUDOGOUT pain, # 30 tablet, Refills 5, Tot. Refills 5, Soft Stop, 01/05/20 8:41:00 EDT, Instructions Replace Required Details, Route to Pharmacy Electronically, [facility] #... Start Date: 01/05/20 Status: Ordered [...] Gm, 1 Refills, Maintenance, 12/20/19 16:30:00 EDT, [facility] #[id number], 162, cm, 09/21/19 12:01:00 EST, Height, 116.4, [...] mL, 5 Refills, Maintenance, 10/01/18 10:08:42 EST, [place], 2 sprays Nares, Both 2 times a [...] 03/22/20 16:34:00 EDT, Route to Pharmacy Electronically, [facility] #[id number], 165, cm, 02/02/2014:39:00 EDT, Height, 127, kg, [...] 0 Refills, Maintenance, 03/26/20 17:11:00 EDT, Tablet, [facility] #[id number], 03/27/20, 165, cm, 02/03/20 14:39:00 EDT, He... 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
--- OUTSIDE RECORDS SUMMARY | 2024-01-02 21:26 | XMS_ITS | Continuity of Care Document ---
Author Organization [facility] Robin Jane Nolberto lt Address [address] [place] [address]- Care Team Providers Care Gymnastics Coach Name Role Phone Radha GRIDER, Fuentes Kenny Primary Care Physician [facility] 09[facility]20 - 10/06/20 [facility] Adult [address] [place] [address]- Allergies, Adverse Reactions, Alerts Substance Reaction Severity [...] H1N1, inactive(oldterm) 8 05/08/11 Given 1Result Comment: [id number] 2Result Comment: [id number] 3Result Comment: [07/08/2017] [id number] 4Admin Note: [facility] 5[facility] Note: [facility] [...] 5 Refills, Maintenance, 07/03/20 9:16:00 EST, Cream, [facility] #[id number], Partial fill upon patient request if the [...] 06/04/20 12:56:00 EST, Route to Pharmacy Electronically, [facility] #[id number], please schedule appt for further refills, 165, cm, 05/16/20 14:15:00 EDT, Hei... Start Date: 06/04/20 Status: Ordered Claritin 10 mg oral tablet 10 mg, 1, tablet, By Mouth, Daily, for 90 days, # 90 tablet, Refills 3, Tot. Refills 3, Acute 07/28/21 15:22:00 EST, 08/02/20 15:22:00 EST, Route to Pharmacy Electronically, [facility] #[id number], 165, cm, 07/31/20 14:32:00 EST, Height, 127, kg,... Start Date: 08/02/20 Stop Date: 07/28/21 Status: Ordered colchicine 0.6 mg oral tablet See Instructions, take 1 tablet by mouth once daily if needed for PSEUDOGOUT pain, # 30 tablet, Refills 5, Tot. Refills 5, Soft Stop, 01/05/20 8:41:00 EDT, Instructions Replace Required Details, Route to Pharmacy Electronically, [facility] #... Start Date: 01/05/20 Status: Ordered Disposable [...] Gm, 3 Refills, Maintenance, 06/22/20 14:58:00 EST, [facility] #[id number], 165, cm, 06/07/20 13:52:00 EST, Height, 127, [...] mL, 5 Refills, Maintenance, 10/01/18 10:08:42 EST, [place], 2 sprays Nares, Both 2 times a [...] 08/02/20 16:13:00 EST, Route to Pharmacy Electronically, [facility] #[id number], D/C RX ON FILE FOR ABRAM, 165, [...] tablet, 1 Refills, Maintenance, 07/12/20 13:56:00 EST, [facility] #77401, Partial fill upon patient request if the prescription is for a schedule II opioid drug., 165, cm, 07/11/20 15:24:00 EST,... Start Date: 07/12/20 Stop Date: 07/05/21 Status: Ordered metoprolol 25 mg oral tablet 25 mg, 1, tablet, By Mouth, 2 times a day, # 60 tablet, Refills 5, Tot. Refills 5, Maintenance, 09/22/20 13:59:00 EST, Route to Pharmacy Electronically, [facility] #[id number], 165, cm, 07/31/2113:32:00 EST, Height, 127, kg, [...] 0 Refills, Maintenance, 06/18/20 16:57:00 EST, Patch, [facility] #[id number], Partial fill upon patient request, 165, cm, 06/07/20 13:52:00 EST, Height, 127, kg, 02/03/20 14:39:00 EDT, Dry Weight Start Date: 06/18/20 Stop Date: 07/30/20 Status: Ordered NuLYTELY with Flavor Packs oral powder for reconstitution See Instructions, Drink 240mL every 15-20 minutes until first half is gone. Repeat 6 hours prior toprocedure., # 4,000 mL, 0 Refills, Maintenance, 06/28/20 17:09:00 EST, [facility] #[id number],Partial fill upon patient request if the prescript... Start Date: 06/28/20 Status: Ordered oxyCODONE 10 mg oral tablet 1 tablet = 10 mg, By Mouth, Every 8 hours, DX Z79.891 G89.29 M47.816 OK TO FILL LESS THAN PRESCRIBED AMOUNT, # 84 tablet, 0 Refills, Maintenance, 09/10/20 17:26:00 EST, Tablet, [facility] #[id number], 09/11/20, 165, cm, 07/31/20 14:32:00 EST, He... [...] 5 Refills, Maintenance, 04/30/20 15:13:00 EDT, Tablet, [facility] #77225, 165, cm, 04/30/20 14:30:00 EDT, Height, 127, kg, 02/03/20 14:39:00 EDT, Dry Weight Start Date: 04/30/20 Status: Ordered rosuvastatin 10 mg oral tablet 1 tablet = 10 mg, By Mouth, Daily, # 90 tablet, 3 Refills, Maintenance, 05/03/20 16:35:00 EDT, Tablet, [facility] #[id number], d/c rx for capsules, 165, cm, 04/30/20 14:30:00 EDT, Height, 127, kg, 02/03/20 14:39:00 EDT, Dry Weight Start Date: 05/03/20 Status: Ordered Ventolin HFA 108 mcg/inh inhalation aerosol with adapter 2 puffs, Inhalation, Every 4 hours, PRN Wheezing/Shortness of Breath, # 1 each, 11 Refills, Soft Stop, 01/19/20 11:46:00 EDT, [facility] #[id number], 165, cm, 01/16/20 6:17:00 EDT, Height, 128.1, kg, 01/16/20 6:17:00 EDT, Dry Weight Start Date: 01/19/20 Status: Ordered warfarin 5 mg oral tablet 1 tablet = 5 mg, By Mouth, Daily, dosing subject to change pending inr lab values, # 30 tablet, 11 Refills, Maintenance, 08/31/20 15:36:00 EST, Tablet, [facility] #[id number], 165, cm, 07/31/20 14:32:00 EST, Height, 127, [...]
--- OUTSIDE RECORDS SUMMARY | 2024-01-02 21:26 | XMS_ITS | Continuity of Care Document ---
Author Organization [facility] Buck Nolberto Address [address] [place] [address]- Care Team Providers Care Pecan Cleaner Name Role Phone Krishan GRIDER, Eulogio Molina Primary Care Physician [facility] Date[facility]): 11[facility]21 - 12/14/21 [facility] Robin Bolañosley Adult [address] [place] [address]- Allergies, Adverse Reactions, Alerts Substance Reaction Severity Status Adhesive Bandage Active Dust copd exac/sinus congestion A ctive Immunizations Given and Recorded Vaccine Date Status Refusal Reason SARS-CoV-2 mRNA ([id number]-[id number]) vax 08/30/21 Recorded influenza virus vaccine, inactivated [...] B adult vaccine 06/14/02 Recorded 1Result Comment: [id number] 2Result Comment: [id number] 3Result Comment: [id number] 4Result Comment: [07/08/2017] [id number] 5Admin Note: [facility] 6Admin Note: [facility] [...] Refills, 05/29/21 17:13:00 EDT, [facility] #[id number], 17, INHALE 2 PUFFS BY MOUTH EVERY 4 HOURS NEEDED FOR WHEEZING OR SHORTNE... Start Date: 05/29/21 Status: Ordered calcipotriene 0.005% topical cream 1 application, Topically, 2 times a day, # 60 Gm, 11 Refills, Maintenance, 11/15/21 11:54:00 EDT, Cream, [facility], Partial fill upon patient request if the prescription is for a schedule IIopioid drug., 1 application Topically 2 times a day... Start Date: 11/15/21 Status: Ordered colchicine 0.6 mg oral tablet 0.6 mg, 1, tablet, By Mouth, Daily, # 30 tablet, Refills 11, Tot. Refills 11, Maintenance, :00:00 EDT, Route to Pharmacy Electronically, [facility], Partial fill upon patient request if the prescription is for a schedule II opioid drTorey.. Start Date: 10/30/21 Status: Ordered cyclobenzaprine 10 mg oral tablet See Instructions, PRN, 1 tablet By Mouth 3 times a day as needed, # 20 tablet, Refills 0, Tot. Refills 0, Maintenance, for spasm, 11/08/21 10:23:00 EDT, Instructions Replace Required Details, Route to Pharmacy Electronically, [facility] #[id number]... Start Date: 11/08/21 Status: Ordered digoxin 0.125 mg oral tablet 125 mcg, 1, tablet, By Mouth, Daily, # 90 tablet, Refills 1, Tot. Refills 1, Maintenance, 12/11/21 13:41:00 EDT, Route to Pharmacy Electronically, [facility], Partial fill upon patient request if the prescription is for a schedule II opioid drTorey.. Start Date: 12/11/21 Status: Ordered duloxetine 20 mg oral enteric coated capsule 2 capsule = 40 mg, By Mouth, Daily at bedtime, # 60 capsule, 11 Refills, Maintenance, 06/25/21 12:00:00 EST, Capsule, [facility], Partial fill upon patient request [...] 5 Refills, Maintenance, 11/18/21 13:49:00 EDT, Tablet, [facility], Partial fill upon patient request [...] Replace Required Details, Route to Pharmacy Electronically, [facility], 165, cm, 06/25/21 11:35:00 EST, Height, 127, kg, 02/03/20 14:39:00 EDT, Dry Weight Start Date: 08/05/21 Status: Ordered metoprolol 100 mg oral tablet, extended release 100 mg, 1, tablet, By Mouth, Daily, # 90 tablet, Refills 1, Tot. Refills 1, Maintenance, 12/11/21 13:41:00 EDT, Route to Pharmacy Electronically, [facility], Partial fill upon patient requestif the prescription is for a schedule II opioid keanu... Start Date: 12/11/21 Status: Ordered nicotine 4 mg oral transmucosal gum 1 each = 4 mg, Chew, Every 2 hours, PRN as needed for smoking cessation, # 160 each, 2 Refills, Acute 03/05/22 16:36:00 EDT, 12/03/21 16:35:00 EDT, Gum, [facility] #[id number], Partial fill uponpatient request if the prescription is for a schedu... Start Date: 12/03/21 Stop Date: 03/05/22 Status: Ordered NuLYTELY with Flavor Packs oral powder for reconstitution 240 mL, By Mouth, Every 10 minutes, # 1 each, 0 Refills, Maintenance, 10/25/21 10:39:00 EDT, REC Powder, [facility], Partial fill upon patient request if the prescription is for a schedule IIopioid drug., 240 mL By Mouth Every 10 minutes, 165... Start Date: 10/25/21 Status: Ordered penicillin V potassium 250 mg oral tablet 1 tablet, By Mouth, 2 times a day, CELLULITIS PROPHYLAXIS., # 60 tablet, 6 Refills, [facility], 165, cm, 11/08/21 10:02:00 EDT, Height, 127, kg, 02/03/20 14:39:00 EDT, Dry Weight Start Date: 11/15/21 Status: Ordered rOPINIRole 0.5 mg oral tablet 1 tablet, By Mouth, 3 times a day, # 90 tablet, 5 Refills, 11/08/21 9:01:00 EDT, [facility], 165, cm, 11/04/21 8:42:00 EDT, Height, 127, kg, 02/03/20 14:39:00 EDT, Dry Weight Start Date: 11/08/21 Status: Ordered rosuvastatin 10 mg oral tablet See Instructions, TAKE 1 TABLET BY MOUTH DAILY, # 90 tablet, 1 Refills, Maintenance, 10/18/21 21:30:00 EDT, [facility], 165, cm, 09/04/21 14:01:00 EST, Height, 127, kg, 02/03/20 14:39:00 EDT,Dry Weight Start Date: 10/18/21 Status: Ordered warfarin 2.5 mg oral tablet See Instructions, Dosing Subject To Change per INR Result per MD, # 30 each, 6 Refills, Maintenance, 12/13/21 13:47:00 EDT, Tablet, [facility], Dosing Subject To Change per INR Result per MD,165, cm, 12/06/21 14:01:00 EDT, Height, 102.1, kg,... Start Date: 12/13/21 Status: Ordered warfarin 5 mg oral tablet See Instructions, Dosing Subject To Change Per INR Result per MD, # 30 each, 6 Refills, Maintenance, 12/13/21 14:01:00 EDT, Tablet, [facility], PLEASE GIVE BOTH 5MG TABLETS AND [...]
--- OUTSIDE RECORDS SUMMARY | 2024-01-02 21:26 | XMS_ITS | Continuity of Care Document ---
Author Organization [facility] Nolberto lt Address [address] [place] [address]- Care Team Providers Care Enamel Finisher Name Role Phone Fuentes Garcia MD Primary Care Physician [phone] [facility]counter [facility] Date(s): 05/20/21 - 06/19/21 [facility] Adult [address] [place] [address]- Allergies, Adverse Reactions, Alerts Substance Reaction Severity [...] B adult vaccine 06/14/02 Recorded 1Result Comment: [id number] 2Result Comment: [id number] 3Result Comment: [07/08/2017] [id number] 4Admin Note: [facility] 5Admin Note: [facility] [...] 8.5 Gm, 5 Refills, 05/29/21 17:13:00 EDT, [facility] #[id number], 17, INHALE 2 PUFFS BY MOUTH EVERY [...] 11 Refills, Maintenance, 10/31/20 14:14:00 EDT, Cream, [facility] #[id number], Partial fill upon patient request if the [...] 04/09/21 14:32:00 EDT, Route to Pharmacy Electronically, [facility], 165, cm, 02/28/21 14:22:00 EDT, Height, [...] PMR, history of smoking fax to : [phone], 04... Start Date: 10/26/20 Status: Ordered Disposable [...] Gm, 3 Refills, Maintenance, 06/22/20 14:58:00 EST, [facility] #[id number], 165, cm, 06/07/20 13:52:00 EST, Height, 127, [...] Refills, Maintenance, 05/24/21 16:13:00 EDT, REC Powder, [facility] #[id number], Partial fill upon patient request if the [...] mL, 5 Refills, Maintenance, 10/01/18 10:08:42 EST, [place], 2 sprays Nares, Both 2 times a [...] 08/02/20 16:13:00 EST, Route to Pharmacy Electronically, [facility] #[id number], D/C RX ON FILE FOR CLARITAN, 165, [...] tablet, 6Refills, Maintenance, 05/21/21 11:19:00 EDT, Tablet, [facility], Partial fill upon patient request if the prescription is for a schedule II... Start Date: 05/21/21 Status: Ordered methenamine hippurate 1 gm oral tablet 1 tablet = 1 Gm, By Mouth, 2 times a day, # 60 tablet, 11 Refills, Maintenance, 07/05/21 14:00:00 EST, [facility], Partial fill upon patient request if the prescription is for a schedule II opioid drug., 165, cm, 02/28/21 14:22:00 EDT, Height,... Start Date: 07/05/21 Status: Ordered methenamine hippurate 1 gm oral tablet 1 tablet = 1 Gm, By Mouth, 2 times a day, # 60 tablet, 1 Refills, Hard Stop 07/05/21 14:00:00 EST, 07/12/20 13:56:00 EST, [facility] #[id number], Partial fill upon patient request if the prescription is for a schedule II opioid drug., 165, cm, 12... Start Date: 07/12/20 Stop Date: 07/05/21 Status: Ordered Metoprolol Tartrate 25 mg oral tablet 1 tablet, By Mouth, 2 times a day, # 60 tablet, 2 Refills, Maintenance, 03/07/21 10:08:00 EDT, [facility] #[id number], 165, cm, 02/28/21 14:22:00 EDT, Height, 127, kg, 02/03/20 14:39:00 EDT, DryWeight Start Date: 03/07/21 Status: Ordered Mitigare 0.6 mg oral capsule 1 capsule, By Mouth, Daily, # 30 capsule, 11 Refills, Maintenance, 12/31/20 16:51:00 EDT, [facility] #[id number], 165, cm, 11/19/20 11:32:00 EDT, Height, 127, [...] 0 Refills, Maintenance, 04/11/21 9:00:00 EDT, Patch, [facility], Partial fill upon patient request, 165, cm, 02/28/21 14:22:00 EDT, Height, 127, kg, 02/03/20 14:39:00 EDT, Dry Weight Start Date: 04/11/21 Stop Date: 05/23/21 Status: Ordered NuLYTELY with Flavor Packs oral powder for reconstitution See Instructions, Drink 240mL every 15-20 minutes until first half is gone. Repeat 6 hours prior toprocedure., # 4,000 mL, 0 Refills, Maintenance, 06/28/20 17:09:00 EST, [facility] #[id number],Partial fill upon patient request if the prescript... Start Date: 06/28/20 Status: Ordered oxyCODONE 10 mg oral tablet 1 tablet = 10 mg, By Mouth, Every 8 hours, DX Z79.891 G89.29 M47.816 OK TO FILL LESS THAN PRESCRIBED AMOUNT, # 84 tablet, 0 Refills, Maintenance, 06/13/21 17:00:00 EST, Tablet, [facility] #[id number], 06/18/21, 165, cm, 05/21/21 10:54:00 EDT, He... Start Date: 06/13/21 Stop Date: 07/11/21 Status: Ordered oxyCODONE 5 mg oral tablet 10 mg, 2, tablet, By Mouth, Every 8 hours, DX Z79.891 G89.29 M47.816 OK TO FILL LESS THAN PRESCRIBED AMOUNT, # 168 tablet, Refills 0, Tot. Refills 0, Maintenance, 03/25/21 16:45:00 EDT, Route to Pharmacy Electronically, [facility] #[id number], D... Start Date: 03/25/21 Stop Date: 04/22/21 Status: Ordered penicillin V potassium 250 mg oral tablet 1 tablet = 250 mg, By Mouth, 2 times a day, Cellulitis prophylaxis, # 60 tablet, 11 Refills, Maintenance, 10/30/20 12:09:00 EDT, [facility] #[id number], 165, cm, 10/19/20 8:59:00 EDT, Height, 127, kg, 02/03/20 14:39:00 EDT, Dry Weight Start Date: 10/30/20 Status: Ordered predniSONE 5 mg oral tablet 1 tablet = 5 mg, By Mouth, Daily, # 30 tablet, 0 Refills, Maintenance, 01/11/21 14:20:00 EDT, Tablet, [facility] #[id number], Partial fill upon patient request if the [...] a day, # 90 tablet, 0 Refills, [facility], 165, cm, 05/21/21 10:54:00 EDT, Height, 127, kg, 02/03/20 14:39:00 EDT, Dry Weight Start Date: 06/11/21 Status: Ordered rosuvastatin 10 mg oral tablet 1 tablet = 10 mg, By Mouth, Daily, # 90 tablet, 1 Refills, Maintenance, 05/20/21 15:53:00 EDT, Tablet, [facility], d/c rx for capsules, 165, cm, 02/28/21 14:22:00 EDT, Height, 127, kg, 02/03/20 14:39:00 EDT, Dry Weight Start Date: 05/20/21 Status: Ordered Trulicity Pen 0.75 mg/0.5 mL subcutaneous solution 0.5 mL = 0.75 mg, Subcutaneous Injection, Every week, take on same day every week, rotate injectionsites E11.9, # 2 mL, 1 Refills, Maintenance, 05/21/21 11:18:00 EDT, Solution, [facility] #[id number], Partial fill upon patient request if the... Start Date: 05/21/21 Status: Ordered warfarin 2.5 mg oral tablet See Instructions, Dosing Subject To Change per INR Result per MD, # 30 each, 6 Refills, Maintenance, 06/12/21 17:09:00 EST, Tablet, [facility], Dosing Subject To Change per INR Result per MD,165, cm, 05/21/21 10:54:00 EDT, Height, 127, kg, 07... Start Date: 06/12/21 Status: Ordered warfarin 5 mg oral tablet See Instructions, Dosing Subject To Change Per INR Result per MD, # 30 each, 6 Refills, Maintenance, 06/12/21 17:05:00 EST, Tablet, [facility], PLEASE GIVE BOTH 5MG TABLETS AND [...]
--- OUTSIDE RECORDS SUMMARY | 2024-01-02 21:26 | XMS_ITS | Continuity of Care Document ---
Author Organization [facility] Robin Jane Nolberto Address [address] [place] [address]- Care Team Providers Care Manager Baby Name Role Phone Fuentes Garcia MD Primary Care Physician [facility] Date(s): 02/03/20 - 03/04/20 [facility] Robin Bolañosley Adult [address] [place] [address]- [facility] Allergies, Adverse Reactions, Alerts Substance [...] H1N1, inactive(oldterm) 7 05/08/11 Given 1Result Comment: [id number] 2Result Comment: [07/08/2017] [id number] 3Admin Note: [facility] 4Admin Note: [facility] [...] 12/06/19 9:16:00 EDT, Route to Pharmacy Electronically, [facility] #[id number], please schedule appt for further refills, 162, cm, 09/21/19 12:01:00 Laurie SPAIN... Start Date: 12/06/19 Status: Ordered Claritin 10 mg oral tablet 10 mg, 1, tablet, By Mouth, Daily, for 30 days, # 30 tablet, Refills 11, Tot. Refills 11, Acute 05/11/20 17:36:41 EDT, 05/17/19 17:36:41 EDT, Route to Pharmacy Electronically, [id number], [facility] [address] Start Date: 05/17/19 Stop Date: 05/11/20 Status: Ordered colchicine 0.6 mg oral tablet See Instructions, take 1 tablet by mouth once daily if needed for PSEUDOGOUT pain, # 30 tablet, Refills 5, Tot. Refills 5, Soft Stop, 01/05/20 8:41:00 EDT, Instructions Replace Required Details, Route to Pharmacy Electronically, [facility] #... Start Date: 01/05/20 Status: Ordered Disposable [...] Gm, 1 Refills, Maintenance, 12/20/19 16:30:00 EDT, [facility] #[id number], 162, cm, 09/21/19 12:01:00 EST, Height, 116.4, [...] mL, 5 Refills, Maintenance, 10/01/18 10:08:42 EST, [place], 2 sprays Nares, Both 2 times a [...] 09/28/19 11:53:00 EST, Route to Pharmacy Electronically, [facility] #[id number], 162, cm, 09/21/2011:01:00 EST, Height, 116.4, kg, [...] 0 Refills, Maintenance, 02/27/20 16:58:00 EDT, Tablet, [facility] #[id number], 02/28/20, 165, cm, 02/03/20 14:39:00 EDT, He... Start Date: 02/27/20 Stop Date: 03/26/20 Status: Ordered penicillin V potassium 250 mg oral tablet 1 tablet = 250 mg, By Mouth, 2 times a day, Cellulitis prophylaxis, # 60 tablet, 11 Refills, Maintenance, 10/23/19 14:33:58 EDT, D/C previous rx sent 05/17/19 [...] 11 Refills, Soft Stop, 01/19/20 11:46:00 EDT, [facility] #[id number], 165, cm, 01/16/20 6:17:00 EDT, Height, 128.1, kg, 01/16/20 6:17:00 EDT, Dry Weight Start Date: 01/19/20 Status: Ordered warfarin 5 mg oral tablet 1 tablet = 5 mg, By Mouth, Daily, dosing subject to change pending inr lab values, # 30 tablet, 5 Refills, Maintenance, 02/15/20 13:21:00 EDT, Tablet, [facility] #[id number], 165, cm, 02/03/20 14:39:00 EDT, Height, 127, [...] long-term use(Confirmed) Active Gastric banding status(Confirmed) 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
--- OUTSIDE RECORDS SUMMARY | 2024-01-02 21:26 | XMS_ITS | Continuity of Care Document ---
Author Organization [facility] Buck Nolberto lt Address [address] [place] [address]- Care Team Providers Care Nursing Agency Manager Name Role Phone Krishan GRIDER, Eulogio Molina Primary Care Physician [phone] Encounter [facility] Date(s): 01/09/22 - 02/08/22 [facility] Adult [address] [place] [address]- Allergies, Adverse Reactions, Alerts Substance Reaction Severity Status Adhesive Bandage Active Dust copd exac/sinus congestion A ctive Immunizations Given and Recorded Vaccine Date Status Refusal Reason SARS-CoV-2 mRNA (quhpcwc-[id number]-[id number]) vax 08/30/21 Recorded influenza virus vaccine, inactivated [...] B adult vaccine 06/14/02 Recorded 1Result Comment: [id number] 2Result Comment: [id number] 3Result Comment: [id number] 4Result Comment: [07/08/2017] [id number] 5Admin Note: [facility] 6Admin Note: [facility] [...] 8.5 Gm, 5 Refills, 05/29/21 17:13:00 EDT, [facility] #[id number], 17, INHALE 2 PUFFS BY MOUTH EVERY [...] Replace Required Details, Route to Pharmacy Electronically, [facility], 159, cm, 01/11/22 15:15:00 EDT, Height, 98.8, k... Start Date: 02/07/22 Status: Ordered colchicine 0.6 mg oral tablet 0.6 mg, 1, tablet, By Mouth, Daily, # 30 tablet, Refills 11, Tot. Refills 11, Maintenance, 227:00:00 EDT, Route to Pharmacy Electronically, [facility], Partial fill upon patient request if [...] Route to Pharmacy Electronically, [facility], Partial fill upon patient request if the prescri... Start Date: 01/11/22 Stop Date: 02/10/22 Status: Ordered duloxetine 20 mg oral enteric coated capsule 2 capsule = 40 mg, By Mouth, Daily at bedtime, # 60 capsule, 11 Refills, Maintenance, 06/25/21 12:00:00 EST, Capsule, [facility], Partial fill upon patient request if [...] Details, [facility], 165, cm, 06/25/21 11:35:00 EST, Height, [...] 12/11/21 13:41:00 EDT, Route to Pharmacy Electronically, [facility], Partial fill upon patient requestif the [...] 03/05/22 16:36:00 EDT, 12/03/21 16:35:00 EDT, Gum, [facility] #[id number], Partial fill uponpatient request if the prescription [...] CELLULITIS PROPHYLAXIS., # 60 tablet, 6 Refills, [facility], 165, cm, 11/08/21 10:02:00 EDT, Height, 127, kg, 02/03/20 14:39:00 EDT, Dry Weight Start Date: 11/15/21 Status: Ordered rOPINIRole 0.5 mg oral tablet 1 tablet, By Mouth, 3 times a day, # 90 tablet, 5 Refills, 11/08/21 9:01:00 EDT, [facility], [facility], cm, 11/04/21 8:42:00 EDT, Height, 127, kg, 02/03/20 14:39:00 EDT, Dry Weight Start Date: 11/08/21 Status: Ordered rosuvastatin 10 mg oral tablet See Instructions, TAKE 1 TABLET BY MOUTH DAILY, # 90 tablet, 1 Refills, Maintenance, 10/18/21 21:30:00 EDT, [facility], 165, cm, 09/04/21 14:01:00 EST, Height, [...] 7:24:00 EDT, Tablet, [facility], Partial fill upon patient requestif the [...] long-term use(Confirmed) Active Gastric banding status(Confirmed) 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
--- OUTSIDE RECORDS SUMMARY | 2024-01-02 21:26 | XMS_ITS | Continuity of Care Document ---
Author Organization [facility] Robin Jane Nolberto Address [address] [place] [address]- Care Team Providers Care Bank Vault Attendant Name Role Phone Radha GRIDER, Fuentes Kenny Primary Care Physician [facility](s): 02/22/21 - 03/24/21 [facility] Robin Bolañosley Adult [address] [place] [address]- Allergies, Adverse Reactions, Alerts Substance Reaction Severity [...] B adult vaccine 06/14/02 Recorded 1Result Comment: [id number] 2Result Comment: [id number] 3Result Comment: [07/08/2017] [id number] 4Admin Note: [facility] 5Admin Note: [facility] [...] 11 Refills, Maintenance, 10/31/20 14:14:00 EDT, Cream, [facility] #[id number], Partial fill upon patient request if the [...] 02/12/21 12:56:00 EDT, Route to Pharmacy Electronically, [facility] #[id number], 165, cm, 01/11/21 14:05:00 EDT, Height, 127, [...] PMR, history of smoking fax to : [phone], 04... Start Date: 10/26/20 Status: Ordered Disposable [...] Gm, 3 Refills, Maintenance, 06/22/20 14:58:00 EST, [facility] #[id number], 165, cm, 06/07/20 13:52:00 EST, Height, 127, [...] mL, 5 Refills, Maintenance, 10/01/18 10:08:42 EST, [place], 2 sprays Nares, Both 2 times a [...] 08/02/20 16:13:00 EST, Route to Pharmacy Electronically, [facility] #[id number], D/C RX ON FILE FOR [facility]BR[facility], 165, [...] 3 Refills, Maintenance, 02/25/21 10:31:00 EDT, Tablet, [facility] #[id number], Partial fill upon patient request if the prescription is for a schedule II opioid drug., 165, cm, 01/11/21 14:... Start Date: 02/25/21 Status: Ordered methenamine hippurate 1 gm oral tablet 1 tablet = 1 Gm, By Mouth, 2 times a day, # 60 tablet, 1 Refills, Maintenance, 07/12/20 13:56:00 EST, [facility] #[id number], Partial fill upon patient request if the prescription is for a schedule II opioid drug., 165, cm, 07/11/20 15:24:00 EST,... Start Date: 07/12/20 Stop Date: 07/05/21 Status: Ordered Metoprolol Tartrate 25 mg oral tablet 1 tablet, By Mouth, 2 times a day, # 60 tablet, 2 Refills, Maintenance, 03/07/21 10:08:00 EDT, [facility] #[id number], 165, cm, 02/28/21 14:22:00 EDT, Height, 127, kg, 02/03/20 14:39:00 EDT, DryWeight Start Date: 03/07/21 Status: Ordered Mitigare 0.6 mg oral capsule 1 capsule, By Mouth, Daily, # 30 capsule, 11 Refills, Maintenance, 12/31/20 16:51:00 EDT, [facility] #[id number], 165, cm, 11/19/20 11:32:00 EDT, Height, 127, [...] 0 Refills, Maintenance, 06/18/20 16:57:00 EST, Patch, [facility] #[id number], Partial fill upon patient request, 165, cm, 06/07/20 13:52:00 EST, Height, 127, kg, 02/03/20 14:39:00 EDT, Dry Weight Start Date: 06/18/20 Stop Date: 07/30/20 Status: Ordered NuLYTELY with Flavor Packs oral powder for reconstitution See Instructions, Drink 240mL every 15-20 minutes until first half is gone. Repeat 6 hours prior toprocedure., # 4,000 mL, 0 Refills, Maintenance, 06/28/20 17:09:00 EST, [facility] #[id number],Partial fill upon patient request if the prescript... Start Date: 06/28/20 Status: Ordered oxyCODONE 10 mg oral tablet 1 tablet = 10 mg, By Mouth, Every 8 hours, DX Z79.891 G89.29 M47.816 OK TO FILL LESS THAN PRESCRIBED AMOUNT, # 84 tablet, 0 Refills, Maintenance, 02/25/21 12:52:00 EDT, Tablet, [facility] #[id number], 02/26/21, 165, cm, 01/11/21 14:05:00 EDT, He... Start Date: 02/25/21 Stop Date: 03/25/21 Status: Ordered penicillin V potassium 250 mg oral tablet 1 tablet = 250 mg, By Mouth, 2 times a day, Cellulitis prophylaxis, # 60 tablet, 11 Refills, Maintenance, 10/30/20 12:09:00 EDT, [facility] #[id number], 165, cm, 10/19/20 8:59:00 EDT, Height, 127, kg, 02/03/20 14:39:00 EDT, Dry Weight Start Date: 10/30/20 Status: Ordered predniSONE 5 mg oral tablet 1 tablet = 5 mg, By Mouth, Daily, # 30 tablet, 0 Refills, Maintenance, 01/11/21 14:20:00 EDT, Tablet, [facility] #[id number], Partial fill upon patient request if the [...] 5 Refills, Maintenance, 04/30/20 15:13:00 EDT, Tablet, [facility] #[id number], 165, cm, 04/30/20 14:30:00 EDT, Height, 127, kg, 02/03/20 14:39:00 EDT, Dry Weight Start Date: 04/30/20 Status: Ordered rosuvastatin 10 mg oral tablet 1 tablet = 10 mg, By Mouth, Daily, # 90 tablet, 3 Refills, Maintenance, 05/03/20 16:35:00 EDT, Tablet, [facility] #09371, d/c rx for capsules, 165, cm, 04/30/20 14:30:00 EDT, Height, 127, kg, 02/03/20 14:39:00 EDT, Dry Weight Start Date: 05/03/20 Status: Ordered Ventolin HFA 108 mcg/inh inhalation aerosol with adapter 2 puffs, Inhalation, Every 4 hours, PRN Wheezing/Shortness of Breath, # 1 each, 5 Refills, Soft Stop, 11/08/20 8:46:00 EDT, [facility] #[id number], 165, cm, 10/19/20 8:59:00 EDT, Height, 127, kg, 02/03/20 14:39:00 EDT, Dry Weight Start Date: 11/08/20 Status: Ordered warfarin 2.5 mg oral tablet See Instructions, take 2.5mg thu sat subjet to change based on INR per MD, # 90 each, 3 Refills, Maintenance, 02/11/21 10:38:00 EDT, Tablet, [facility] #[id number], PLEASE GIVE THIS IN COMBINATION WITH 5MG TABLETS;, 165, cm, 01/11/21... 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
--- OUTSIDE RECORDS SUMMARY | 2024-01-02 21:26 | XMS_ITS | Continuity of Care Document ---
Author Organization [facility] Buck Nolberto Address [address] [place] [address]- Care Team Providers Care Surplus Property Disposal Agent Name Role Phone Eulogio Nickerson MD Primary Care Physician [phone] Encounter [facility] Date(s): 10/13/22 - 10/20/22 [facility] Robin Bolañosley Adult [address] [place] [address]- Attending Physician: Eulogio Nickerson MD Allergies, Adverse [...] vaccine, inactivated 05/10/07 Jarrett rded SARS-CoV-2 mRNA ([id number]) vax 08/30/21 Recorded SARS-CoV-2 (COVID-19) mRNA BNT-162b2 vac 01/02/21 Recorded SARS-CoV-2 (COVID-19) mRNA BNT-162b2 vac 12/02/20 Recorded Fluvirin (oldterm) 8 03/22/15 Given Fluzone Preservative-Free (oldterm) 9 03/12/12 Giv en pneumococcal 23-valent vaccine 10/08/11 Given tetanus/diphtheria/pertussis, acel(Tdap) 09/08/11 Given tetanus/diphtheria/pertussis, acel(Tdap) 12/17/06 Recorded influ virus vac, H1N1, inactive(oldterm) 10 05/08/11 Given hepatitis B adult vaccine 06/14/02 Recorded 1Result Comment: [id number] 2Result Comment: [id number] 3Result Comment: [id number] 4Result Comment: [id number] 5Result Comment: [07/08/2017] 59189-993-25 6Admin Note: [facility] 7[facility] Note: [facility] [...] Gm, 4 Refills, Maintenance, 09/08/22 14:55:00 EST, [facility], 30, INHALE 2 PUFFS BY MOUTH EVERY FOUR HOURS NEEDED FOR WHEEZING... Start Date: 09/08/22 Status: Ordered cloNIDine 0.1 mg oral tablet 1, tablet, By Mouth, 2 times a day, PRN, # 56 tablet, Refills 2, Maintenance, NEEDED FOR FOR ANXIETY (VIAL) ^VIAL, 10/03/22 11:23:00 EST, Route to Pharmacy Electronically, [facility], 160,cm, 09/09/22 14:31:00 EST, Height, 98.8, kg, 12/22/... Start Date: 10/03/22 Status: Ordered colchicine 0.6 mg oral tablet 1, tablet, By Mouth, Daily, ^1R1., # 30 tablet, Refills 11, Maintenance, 09/10/22 5:31:00 EST, Route to Pharmacy Electronically, [facility], 160, cm, 09/09/22 14:31:00 EST, Height, 98.8, kg, 07/17/22 8:58:00 EST, Dry Weight Start Date: 09/10/22 Status: Ordered docusate sodium 100 mg oral capsule 100 mg, 1, capsule, By Mouth, 2 times a day, hold for loose stool, # 60 capsule, Refills 0, Tot. Refills 0, Maintenance, 01/11/22 7:25:00 EDT, Route to Pharmacy Electronically, [facility], Partial fill upon patient request if the prescri... Start Date: 01/11/22 Stop Date: 02/10/22 Status: Ordered duloxetine 20 mg oral enteric coated capsule 2 capsule = 40 mg, By Mouth, Daily at bedtime, # 60 capsule, 11 Refills, Maintenance, 06/25/21 12:00:00 EST, [facility], [facility], Partial fill upon patient request [...] Acute 03/16/23 6:08:00 EDT, 10/14/22 6:08:00 EDT, [place], [id number], Partial fill upon patient request if the [...] 5 Refills, Maintenance, 07/29/22 6:50:00 EST, Tablet, [facility], Partial fill upon patient request if [...] 63 tablet, 0 Refills, Maintenance, 10/14/22 6:07:00 EDT, W... Start Date: 10/14/22 Status: Ordered rOPINIRole 0.5 mg oral tablet See Instructions, TAKE 1 TABLET BY MOUTH THREE TIMES DAILY^1R1,1R3,1R4, # 90 tablet, 5 Refills, Maintenance, 07/24/22 23:41:00 EST, [facility], 160, cm, 07/18/22 11:39:00 EST, Height, 98.8, kg, 07/17/22 8:58:00 EST, Dry Weight Start Date: 07/24/22 Status: Ordered rosuvastatin 10 mg oral tablet 1 tablet, By Mouth, Daily, ^1R1., # 30 tablet, 5 Refills, Maintenance, 09/10/22 5:31:00 EST, [facility], 160, cm, 09/09/22 14:31:00 EST, Height, 98.8, kg, 07/17/22 8:58:00 EST, Dry Weight Start Date: 09/10/22 Status: Ordered Symbicort 80mcg/4.5mcg Inhaler See Instructions, INHALE 2 PUFFS BY MOUTH TWICE A DAY RINSE MOUTH AND THROAT AFTER USE, # 10.2 Gm, Refills 5, Maintenance, 07/30/22 21:16:00 EST, Instructions Replace Required Details, Route to Pharmacy Electronically, [id number], [facility]... Start Date: 07/30/22 Status: Ordered warfarin 1 mg oral tablet See Instructions, Take 1-10 tabs daily as directed by NEOS., # 150 tablet, 0 Refills, Maintenance, 07/18/22 8:55:00 EST, Tablet, [facility], Partial fill upon [...] oldest [Reference Range]: 1 Height 160 cm (10/13/22 4:25 PM) Weight 105.8 kg (10/13/22 4:25 PM) Oxygen Saturation [94-100 %] 99 % (10/13/22 4:25 PM) Pulse Rate [55-90 bpm] 104 bpm *H* (10/13/22 4:25 PM) Body Mass Index [18.5-24.99 kg/m2] 41.33 kg/m2 *>HHI* (10/13/22 4:25 PM) Blood Pressure [90-138/55-84 mm Hg] 95/5 8mm Hg (10/13/22 4:25 PM) Mode of Delivery (Oxygen) Room air (10/13/22 4:25 PM) Blood pressure sites Arm, right (10/13/22 4:25 PM) Weight Obtained Via Standing scale (10/13/22 4:25 PM) Social History Social History Type Response Smoking Status Current every day ayesha entered on: 05/04/18 Sex Female Patient Care team information Care Team Personnel Name: Sandra Wills NP Position: [facility] PCO Associate Professional Member Role: Primary Care Nurse Address: Address: [address] [place] [address]- [place] Name: Marley Alejo RN Position: [facility] RN Member Role: Primary Care Nurse Name: Eulogio Nickerson MD Position: [facility] Primary Care Physician Member Role: PCP Address: Address: [address] [place] [address]- [place] Name: Alma Delia Fonseca PharmD Position: [facility] Associate Professional Member Role: Lifetime Consulting Provider Address: Address: [address] [place] [address] [place] [address]- [place] Name: Yolis Mattson RN Position: S RN Member Role: Primary Care Nurse Name: Priscila Garzon RN Position: S RN Member Role: Primary Care Nurse Name: Renea Mart RN Position: S RN Member Role: Primary Care Nurse Care Team Related Persons Name: FAUZIA JANSEN Address: home [address] [place] [address] Name: AURELIA SHETH Address: [address] [place] [address] Name: BRE OSORIO Address: home [address] [place] [address]
--- OUTSIDE RECORDS SUMMARY | 2024-01-02 21:26 | XMS_ITS | Continuity of Care Document ---
Author Organization [facility] Buck Nolberto Address [address] [place] [address]- Care Team Providers Care Video Surveillance Technician Name Role Phone Fuentes Garcia MD Primary Care Physician Encounter [facility] Date(s): 01/05/20 - 01/12/20 [facility] Adult [address] [place] [address]- [facility] Encounter Diagnosis DVT - Deep vein thrombosis, post surgical 2010, left leg(Discharge Diagnosis) - 01/05/20 Deep venous thrombosis - Recurrent, left leg, 2012.(Discharge Diagnosis) - 01/05/20 Anticoagulant long-term use(Discharge Diagnosis) - 01/05/20 Hyperparathyroidism(Discharge Diagnosis) - 01/05/20 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 Start Date: 12/06/19 Status: Ordered Claritin 10 mg oral tablet 10 mg, 1, tablet, By Mouth, Daily, for 30 days, # 30 tablet, Refills 11, Tot. Refills 11, Acute 05/11/20 17:36:41 EDT, 05/17/19 17:36:41 EDT, Route to Pharmacy Electronically, [id number], [facility] Start Date: 05/17/19 Stop Date: 05/11/20 Status: Ordered colchicine 0.6 mg oral tablet See Instructions, take 1 tablet by mouth once daily if needed for PSEUDOGOUT pain, # 30 tablet, Refills 5, Tot. Refills 5, Soft Stop, 01/05/20 8:41:00 EDT, Instructions Replace Required Details, Route to Pharmacy Electronically, [facility]... Start Date: 01/05/20 Status: Ordered [...] Gm, 1 Refills, Maintenance, 12/20/19 16:30:00 EDT, [facility] #[id number], 162, cm, 09/21/19 12:01:00 EST, Height, 116.4, [...] mL, 5 Refills, Maintenance, 10/01/18 10:08:42 EST, [place], 2 sprays Nares, Both 2 times a [...] 09/28/19 11:53:00 EST, [id number], 162, cm, 09/21/2011:01:00 EST, Height, 116.4, kg, [...] 0 Refills, Maintenance, 01/05/20 11:19:00 EDT, Tablet, [facility] #[id number], 162, cm, 01/05/20 8:32:00 EDT, Height, 116.4... [...] [address] Start Date: 01/24/19 Status: Ordered warfarin 5 mg oral tablet [...] Effective Dates Health Status Clinical Service Informant DVT - Deep vein thrombosis, post surgical 2009, left leg Discharge Diagnosis 01/05/20 Deep venous thrombosis - Recurrent, left leg, 2011. 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
--- OUTSIDE RECORDS SUMMARY | 2024-01-02 21:27 | XMS_ITS | Continuity of Care Document ---
Author Organization [facility] Robin Jane Nolberto Address [address] [place] [address]- Care Team Providers Care Diabetes Physician Name Role Phone Kyle Ahumada DO Primary Care Physician Encounter [facility] Date(s): 09/03/23 - 10/03/23 [facility] Robin Bolañosley Adult [address] [place] [address]- Allergies, Adverse Reactions, Alerts Substance Reaction Severity [...] vaccine, inactivated 05/10/07 Jarrett rded SARS-CoV-2 mRNA (wzligcm-ddln-nujro) vax 08/30/21 Recorded SARS-CoV-2 (COVID-19) mRNA BNT-162b2 vac 01/02/21 Recorded SARS-CoV-2 (COVID-19) mRNA BNT-162b2 vac 12/02/20 Recorded Fluvirin (oldterm) 10 03/22/15 Given Fluzone Preservative-Free (oldterm) 11 03/12/12 Gi octavio pneumococcal 23-valent vaccine 10/08/11 Given tetanus/diphtheria/pertussis, acel(Tdap) 09/08/11 Given tetanus/diphtheria/pertussis, acel(Tdap) 12/17/06 Recorded influ virus vac, H1N1, inactive(oldterm) 12 05/08/11 Given hepatitis B adult vaccine 06/14/02 Recorded 1Result Comment: PCV [address] [facility]#[id number] 2Result Comment: Flu [facility]#[id number] 3Result Comment: [id number] 4Result Comment: [id number] 5Result Comment: [id number] 6Result Comment: [id number] 7Result Comment: [07/08/2017] [id number] 8Admin Note: [facility] 9Admin Note: [facility] 9-13 10Admin Note: Given at [facility] 11Admin Note: 03-11-12 GIVEN AT [facility] 12Admin Note: rcvd elsewhere Medications acetaminophen 325 mg oral tablet 2, tablet, By Mouth, Every 6 hours, PRN, # 100 tablet, Refills 5, Maintenance, NEEDED FOR MODERATE PAIN (VIAL), 09/14/23 15:41:00 EST, Route to Pharmacy Electronically, [facility], 160, cm, 07/07/23 15:02:00 EST, Height, 112.4, kg, 06/24/23... Start Date: 09/14/23 Status: Ordered Albuterol (Eqv-ProAir HFA) 90 mcg/inh inhalation aerosol 2 puffs, Inhalation, Every 4 hours, PRN NEEDED FOR WHEEZING OR FOR SHORTNESS OF BREATH (BULK), #8.5 Gm, 5 Refills, Maintenance, 07/25/23 11:45:00 EST, [facility], 17, INHALE 2 PUFFS BY MOUTH EVERY 4 HOURS NEEDED FOR WHEEZING OR FOR SHOR... Start Date: 07/25/23 Status: Ordered cloNIDine 0.1 mg oral tablet 1, tablet, By Mouth, 2 times a day, PRN, ANXIETY (VIAL., # 56 tablet, Refills 2, Maintenance, NEEDED, 07/25/23 11:44:00 EST, Route to Pharmacy Electronically, [facility], 160, cm, 07/07/2315:02:00 EST, Height, 112.4, kg, 06/24/23 17:38:00... Start Date: 07/25/23 Status: Ordered cyclobenzaprine 5 mg oral tablet 1 tablet, By Mouth, 3 times a day, PRN NEEDED, SPASM (VIAL., # 90 tablet, 3 Refills, Maintenance, 08/19/23 10:07:00 EST, [facility], 160, cm, 07/07/23 15:02:00 EST, Height, 112.4, kg, 06/24/23 17:38:00 EST, Dry Weight Start Date: 08/19/23 Status: Ordered docusate sodium 100 mg oral capsule 100 mg, 1, capsule, By Mouth, 2 times a day, hold for loose stool, # 180 capsule, Refills 3, Tot. Refills 3, Maintenance, 03/13/23 16:56:00 EDT, Route to Pharmacy Electronically, [facility], Partial fill upon patient request if the prescriptio... Start Date: 03/13/23 Stop Date: 04/12/23 Status: Ordered duloxetine 20 mg oral enteric coated capsule 2 capsule = 40 mg, By Mouth, Daily at bedtime, # 60 capsule, 11 Refills, Maintenance, 06/25/21 12:00:00 EST, Capsule, [facility], Partial fill upon [...] Details, [facility], [facility], cm, 07/07/23 15:02:00 EST, Height,... Start Date: 07/28/23 Status: Ordered furosemide 40 mg oral tablet 40 mg, 1, tablet, By Mouth, Daily, # 90 tablet, Refills 1, Tot. Refills 1, Maintenance, 03/02/23 18:12:00 EDT, Route to Pharmacy Electronically, [facility], Partial fill upon patient request if the prescription is for a schedule II opioid drug... Start Date: 03/02/23 Status: Ordered gabapentin 300 mg oral capsule 300 mg, 1, capsule, By Mouth, 3 times a day, # 90 capsule, Refills 2, Tot. Refills 2, Maintenance, 09/09/23 17:17:00 EST, Route to Pharmacy Electronically, [facility], Partial fill upon patient request if [...] mL, 11 Refills, Maintenance, 08/11/23 7:46:00 EST, [facility], 30, INSTILL 2 SPRAYS [...] 07/01/23 14:32:00 EST, Route to Pharmacy Electronically, [facility], 160, cm, 06/26/23 11:21:00 EST, Height, 112.4, kg, 06/24/23 17:38:00 EST, Dry Weight Start Date: 07/01/23 Status: Ordered metFORMIN 500 mg oral tablet 1 tablet = 500 mg, By Mouth, 2 times a day, # 60 tablet, 5 Refills, Maintenance, 07/07/23 15:26:00 EST, Tablet, [facility], Partial fill upon patient request if the prescription is for a schedule II opioid drug., 160, cm, 07/07/23 15:02:00 EST... Start Date: 07/07/23 Stop Date: 01/03/24 Status: Ordered nicotine 21 mg/24 hr transdermal film, extended release 1 patch, Topically, Daily, # 28 patch, 3 Refills, Maintenance, 09/14/23 15:41:00 EST, [facility], 28, APPLY 1 PATCH TOPICALLY DAILY, [...] tablet, 5 Refills, Maintenance, 08/19/23 10:06:00 EST, [facility], 160, cm, 07/07/23 15:02:00 EST, Height, 112.4, kg, 06/24/23 17:38:00 EST,Dry Weight Start Date: 08/19/23 Status: Ordered rOPINIRole 0.5 mg oral tablet 1 tablet, By Mouth, 3 times a day, ^1R1,1R3,1R4., # 90 tablet, 5 Refills, Maintenance, 05/09/23 20:56:00 EDT, [facility], 160, cm, 04/02/23 12:45:00 EDT, Height, 98.8, kg, 07/17/22 8:58:00 EST, Dry Weight Start Date: 05/09/23 Status: Ordered rosuvastatin 10 mg oral tablet 1 tablet, By Mouth, Daily, ^1R1., # 30 tablet, 5 Refills, Maintenance, 07/01/23 14:33:00 EST, [facility], 160, cm, 06/26/23 11:21:00 EST, Height, 112.4, kg, 06/24/23 17:38:00 EST, Dry Weight Start Date: 07/01/23 Status: Ordered Symbicort 160mcg/4.5mcg Inhaler 2, puffs, Inhalation, 2 times a day, # 10.2 Gm, Refills 11, Tot. Refills 11, Maintenance, 06/03/23 11:47:00 EST, Aerosol, Route to Pharmacy Electronically, [id number], [facility], 160, cm, 06/03/23 11:30:00 EST, Height, [...] 30 tablet, 5 Refills, Maintenance, 08/11/23 11:28:00 EST,[facility], 160, cm, 07/07/23 15:02:00 EST, Height, [...] Team Personnel Name: Sandra Wills NP Position: [facility] PCO Associate Professional Member Role: Primary Care Nurse Address: Address: [address] [place] [address] [place] [address]- [place] Name: Marley Alejo RN Position: [facility] RN Member Role: Primary Care Nurse Name: Rashi Dewitt RN Position: [facility] RN Member Role: Primary Care Nurse Name: Alma Delia Fonseca PharmD Position: [facility] Associate Professional Member Role: Lifetime Consulting Provider Address: Address: [address] [place] [address] [place] [address]- Name: Priscila Garzon RN Position: [facility] RN Member Role: Primary Care Nurse Name: Kyle Ahumada DO Position: [facility] Physician - Primary Care Member Role: PCP Address: Address: [address] [place] [address]- Name: Renea Mart RN Position: [facility] RN Member Role: Primary Care Nurse Care Team Related Persons Name: FAUZIA JANSEN Address: home [address] [place] [address] Name: AURELIA SHETH Address: [address] [place] [address] Name: BRE OSORIO Address: [address] [place] [address]
--- OUTSIDE RECORDS SUMMARY | 2024-01-02 21:27 | XMS_ITS | Continuity of Care Document ---
Author Organization [facility] Buck Nolberto Address [address] [place] [address]- Care Team Providers Care Sight Mounter Name Role Phone Eulogio Nickerson MD Primary Care Physician Encounter [facility] Date(s): 12/03/21 - 12/10/21 [facility] Adult [address] [place] [address]- Attending Physician: Eulogio Nickerson MD Allergies, Adverse Reactions, Alerts Substance Reaction Severity Status Adhesive Bandage Active Dust copd exac/sinus congestion A ctive Immunizations Given and Recorded Vaccine Date Status Refusal Reason SARS-CoV-2 mRNA (flkjpms-jwcb-bpyyv) vax 08/30/21 Recorded influenza virus vaccine, inactivated [...] B adult vaccine 06/14/02 Recorded 1Result Comment: [id number] 2Result Comment: [id number] 3Result Comment: [id number] 4Result Comment: [07/08/2017] [id number] 5Admin Note: [facility] 6Admin Note: [facility] [...] 8.5 Gm, 5 Refills, 05/29/21 17:13:00 EDT, [id number], 17, INHALE 2 PUFFS BY MOUTH EVERY 4 HOURS NEEDED FOR WHEEZING OR SHORTNE... Start Date: 05/29/21 Status: Ordered calcipotriene 0.005% topical cream 1 application, Topically, 2 times a day, # 60 Gm, 11 Refills, Maintenance, 11/15/21 11:54:00 EDT, Cream, [facility], Partial fill upon patient request if the prescription is for a schedule IIopioid drug., 1 application Topically 2 times a day... Start Date: 11/15/21 Status: Ordered colchicine 0.6 mg oral tablet 0.6 mg, 1, tablet, By Mouth, Daily, # 30 tablet, Refills 11, Tot. Refills 11, Maintenance, 04/06/227:00:00 EDT, Route to Pharmacy Electronically, [facility], Partial fill upon patient request if the prescription is for a schedule II opioid dr... Start Date: 10/30/21 Status: Ordered cyclobenzaprine 10 mg oral tablet See Instructions, PRN, 1 tablet By Mouth 3 times a day as needed, # 20 tablet, Refills 0, Tot. Refills 0, Maintenance, for spasm, 11/08/21 10:23:00 EDT, Instructions Replace Required Details, Route to Pharmacy Electronically, [facility] #[id number]... Start Date: 11/08/21 Status: Ordered [...] 11 Refills, Maintenance, 06/25/21 12:00:00 EST, Capsule, [facility], Partial fill upon patient request if the prescription is for a schedule II opioid drug., Gela, madi, 06/25/21 11:35:... Start Date: 06/25/21 Status: Ordered [...] 5 Refills, Maintenance, 11/18/21 13:49:00 EDT, Tablet, [facility], Partial fill upon patient request if [...] Replace Required Details, Route to Pharmacy Electronically, [facility], 165, cm, 06/25/21 11:35:00 [...] 03/05/22 16:36:00 EDT, 12/03/21 16:35:00 EDT, Gum, [facility][id number], Partial fill uponpatient request if the prescription is for a schedu... Start Date: 12/03/21 Stop Date: 03/05/22 Status: Ordered NuLYTELY with Flavor Packs oral powder for reconstitution 240 mL, By Mouth, Every 10 minutes, # 1 each, 0 Refills, Maintenance, 10/25/21 10:39:00 EDT, REC Powder, [facility], Partial fill upon patient request if the prescription is for a schedule IIopioid drug., 240 mL By Mouth Every 10 minutes, 165... Start Date: 10/25/21 Status: Ordered penicillin V potassium 250 mg oral tablet 1 tablet, By Mouth, 2 times a day, CELLULITIS PROPHYLAXIS., # 60 tablet, 6 Refills, [facility], 165, cm, 11/08/21 10:02:00 EDT, Height, 127, kg, 02/03/20 14:39:00 EDT, Dry Weight Start Date: 11/15/21 Status: Ordered rOPINIRole 0.5 mg oral tablet 1 tablet, By Mouth, 3 times a day, # 90 tablet, 5 Refills, 11/08/21 9:01:00 EDT, [facility], 165, cm, 11/04/21 8:42:00 EDT, Height, 127, kg, 02/03/20 14:39:00 EDT, Dry Weight Start Date: 11/08/21 Status: Ordered rosuvastatin 10 mg oral tablet See Instructions, TAKE 1 TABLET BY MOUTH DAILY, # 90 tablet, 1 Refills, Maintenance, 10/18/21 21:30:00 EDT, [facility], 165, cm, 09/04/21 14:01:00 EST, Height, 127, kg, 02/03/20 14:39:00 EDT,Dry Weight Start Date: 10/18/21 Status: Ordered warfarin 2.5 mg oral tablet See Instructions, Dosing Subject To Change per INR Result per MD, # 30 each, 6 Refills, Maintenance, 06/12/21 17:09:00 EST, Tablet, [facility], Dosing Subject To Change per INR Result per MD,165, cm, 05/21/21 10:54:00 EDT, Height, 127, kg, 07... Start Date: 06/12/21 Status: Ordered warfarin 5 mg oral tablet See Instructions, Dosing Subject To Change Per INR Result per MD, # 30 each, 6 Refills, Maintenance, 06/12/21 17:05:00 EST, Tablet, [facility], PLEASE GIVE BOTH 5MG TABLETS AND [...] oldest [Reference Range]: 1 Height 165 cm (12/03/21 4:08 PM) Weight 103.0 kg (12/03/21 4:08 PM) Oxygen Saturation [94-100 %] 97 % (12/03/21 4:08 PM) Pulse Rate [55-90 bpm] 92 bpm *H* (12/03/21 4:08 PM) Body Mass Index [18.5-24.99] 37.83 *>HHI* (12/03/21 4:08 PM) Blood Pressure [90-138/55-84 mm Hg] 133/ 81mm Hg (12/03/21 4:08 PM) Mode of Delivery (Oxygen) Room air (12/03/21 4:08 PM) Blood pressure sites Arm, left (12/03/21 4:08 PM) Weight Obtained Via Standing scale (12/03/21 4:08 PM) Social History Social History Type Response Smoking Status 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
--- OUTSIDE RECORDS SUMMARY | 2024-01-02 21:27 | XMS_ITS | Continuity of Care Document ---
Author Organization [facility] Robin Jane Nolberto Address [address] [place] [address]- Care Team Providers Care Stave Log Ripsaw Operator Name Role Phone Kyle Ahumada DO Primary Care Physician [facility]): 03[facility]23 - 04/09/23 [facility] Robin Bolañosley Adult [address] [place] [address]- Encounter Diagnosis Nausea(Discharge Diagnosis) - 03/09/23 Chronic obstructive pulmonary disease (COPD)(Discharge Diagnosis) - 03/09/23 Congestive heart failure(Discharge Diagnosis) - 03/09/23 Paroxysmal atrial flutter(Discharge Diagnosis) - 03/09/23 Attending Physician: Kyle Ahumada DO Allergies, Adverse [...] vaccine, inactivated 05/10/07 Jarrett rded SARS-CoV-2 mRNA ([id number]) vax 08/30/21 Recorded SARS-CoV-2 (COVID-19) mRNA BNT-162b2 vac 01/02/21 Recorded SARS-CoV-2 (COVID-19) mRNA BNT-162b2 vac 12/02/20 Recorded Fluvirin (oldterm) 8 03/22/15 Given Fluzone Preservative-Free (oldterm) 9 03/12/12 Giv en pneumococcal 23-valent vaccine 10/08/11 Given tetanus/diphtheria/pertussis, acel(Tdap) 09/08/11 Given tetanus/diphtheria/pertussis, acel(Tdap) 12/17/06 Recorded influ virus vac, H1N1, inactive(oldterm) 10 05/08/11 Given hepatitis B adult vaccine 06/14/02 Recorded 1Result Comment: [id number] 2Result Comment: [id number] 3Result Comment: [id number] 4Result Comment: [id number] 5Result Comment: [07/08/2017] [id number] 6Admin Note: [facility] 7Admin Note: [facility] 9-13 8Admin Note: Given at [facility] 9Admin Note: 03-11-12 GIVEN AT [facility] 10Admin Note: rcvd elsewhere Medications acetaminophen 325 mg oral tablet 650 mg, 2, tablet, By Mouth, Every 6 hours, PRN, # 100 tablet, Refills 1, Tot. Refills 1, Maintenance, Pain , Moderate, 03/13/23 16:59:00 EDT, Route to Pharmacy Electronically, [facility], Partial fill upon patient request if the prescription... Start Date: 03/13/23 Status: Ordered Albuterol (Eqv-ProAir HFA) 90 mcg/inh inhalation aerosol See Instructions, INHALE 2 PUFFS BY MOUTH EVERY FOUR HOURS NEEDED FOR WHEEZING OR SHORTNESS OF BREATH, # 8.5 Gm, 5 Refills, Maintenance, 03/13/23 9:55:00 EDT, [facility], 30, INHALE 2 PUFFS BY MOUTH [...] 03/12/23 15:30:00 EDT, Route to Pharmacy Electronically, [facility], 160, cm, 03/02/23 9:56:00 EDT, Height, 98.8, k... Start Date: 03/12/23 Status: Ordered cloNIDine 0.1 mg oral tablet 0.1 mg, 1, tablet, By Mouth, 2 times a day, PRN, # 60 tablet, Refills 2, Tot. Refills 2, Maintenance, Anxiety, 03/12/23 16:38:00 EDT, Route to Pharmacy [facility]ically, [facility], Partial fill upon patient request if the prescription is for a... Start Date: 03/12/23 Status: Ordered cyclobenzaprine 5 mg oral tablet 1 tablet = 5 mg, By Mouth, 3 times a day, PRN Spasm, can increase to 2 three time a day if needed, # 90 tablet, 2 Refills, Maintenance, 04/02/23 12:59:00 EDT, Tablet, [facility], Partial fillupon patient request if the prescription is for a s... Start Date: 04/02/23 Status: Ordered DilTIAZem (Eqv-Dilacor XR) 240 mg/24 hours oral capsule, extended release 1 capsule = 240 mg, By Mouth, Daily, # 90 capsule, 3 Refills, Maintenance, 03/13/23 17:04:00 EDT, CD Capsule, [facility], Partial fill upon patient request [...] 03/13/23 16:56:00 EDT, Route to Pharmacy Electronically, [facility], Partial fill upon patient request if [...] 03/02/23 18:12:00 EDT, Route to Pharmacy Electronically, [facility], Partial fill upon patient request if the prescription is for a schedule II opioid drug... Start Date: 03/02/23 Status: Ordered ipratropium nasal 21 mcg/inh spray 2 sprays = 42 mcg, Nares, Both, 2 times a day, # 30 mL, 5 Refills, Maintenance, 03/13/23 16:58:00 EDT, [place], [facility], Partial fill upon patient request if [...] 02/07/23 18:12:00 EDT, Route to Pharmacy Electronically, [facility], 160, cm, 12/16/22 10:46:00 EDT, Height, [...] 3 Refills, Maintenance, 03/13/23 17:03:00 EDT, Patch, [facility], Partial fill upon patient request if the prescription is for a schedule II opioid drug., 1 patch Topically Daily, 160, cm, 03/02/23 9:56:0... Start Date: 03/13/23 Status: Ordered penicillin V potassium 250 mg oral tablet 1 tablet = 250 mg, By Mouth, 2 times a day, CELLULITIS PROPHYLAXIS, # 60 tablet, 5 Refills, Maintenance, 11/06/22 17:25:00 EDT, Tablet, [facility], Partial fill upon patient request if the prescription is for a schedule II opioid drug., 160, c... Start Date: 11/06/22 Stop Date: 05/05/23 Status: Ordered rOPINIRole 0.5 mg oral tablet 1 tablet, By Mouth, 3 times a day, ^1R1,1R3,1R4., # 90 tablet, 5 Refills, Maintenance, 12/24/22 14:21:00 EDT, [facility], 160, cm, 12/16/22 10:46:00 EDT, Height, 98.8, kg, 07/17/22 8:58:00 EST, Dry Weight Start Date: 12/24/22 Status: Ordered rosuvastatin 10 mg oral tablet 1 tablet, By Mouth, Daily, ^1R1., # 30 tablet, 5 Refills, Maintenance, 02/07/23 18:12:00 EDT, [facility], 160, cm, 12/16/22 10:46:00 EDT, Height, 98.8, kg, 07/17/22 8:58:00 EST, Dry Weight Start Date: 02/07/23 Status: Ordered Symbicort 80mcg/4.5mcg Inhaler See Instructions, INHALE 2 PUFFS BY MOUTH TWICE A DAY RINSE MOUTH AND THROAT AFTER USE, # 10.2 Gm, Refills 5, Tot. Refills 5, Maintenance, 03/13/23 10:13:00 EDT, Instructions Replace Required Details, Route to Pharmacy Electronically, [id number]_[id number]... Start Date: 03/13/23 Status: Ordered Xarelto 20 mg oral tablet 1 tablet = 20 mg, By Mouth, Daily at supper, # 90 tablet, 1 Refills, Maintenance, 03/02/23 18:12:00EDT, Tablet, [facility], pt was rx'd w diltiazem on [...] pain Confirmed Active Spinal stenosis, lumbar Confirmed 11/9/12 Active Stasis dermatitis Confirmed Active UI (urinary incontinence) Confirmed Active 1Mild obstruction on PFT's September 2011 Diagnosis Diagnosis Type Effective Dates Health Status Clinical Service Informant Nausea Discharge Diagnosis 03/09/23 Chronic obstructive pulmonary disease (COPD) Discharge Diagnosis 03/09/23 Congestive heart failure Discharge Diagnosis 03/09/23 Paroxysmal atrial flutter Discharge Diagnosis 03/09/23 Social History Social History Type Response Smoking Status Current every day ruddy ayesha entered on: 05/04/18 Sex Female Patient Care team information Care Team Personnel Name: Sandra Wills NP Position: [facility] PCO Associate Professional Member Role: Primary Care Nurse Address: Address: [address] [place] [address] [place] [address]- [place] Name: Marley Alejo RN Position: [facility] RN Member Role: Primary Care Nurse Name: Alma Delia Fonseca PharmD Position: [facility] Associate Professional Member Role: Lifetime Consulting Provider Address: Address: [address] [place] [address]- [place] Name: Yolis Mattson RN Position: [facility] RN Member Role: Primary Care Nurse Name: Priscila Garzon RN Position: [facility] RN Member Role: Primary Care Nurse Name: Kyle Ahumada DO Position: [facility] Physician - Primary Care Member Role: PCP Address: Address: [address] [place] [address]- [place] Name: Renea Mart RN Position: [facility] RN Member Role: Primary Care Nurse Care Team Related Persons Name: FAUZIA JANSEN Address: home [address] [place] [address] Name: AURELIA SHETH Address: home [address] [place] [address] Name: BRE OSORIO Address: home [address] [place] [address]
--- OUTSIDE RECORDS SUMMARY | 2024-01-02 21:27 | XMS_ITS | Continuity of Care Document ---
Author Organization [facility] Valerie n's [facility] Address [address] [place] [address], [address] [place] [address]- Care Team Providers Care Tax Advisor Name Role Phone Fuentes Garcia MD Primary Care Physician [facility] - 08[facility]14/19 [facility] [employer] [facility] [address] [facility], [address]th [place] [address]- Attending Physician: Not on Staff, Attending MD [...] H1N1, inactive(oldterm) 7 05/08/11 Given 1Result Comment: [id number] 2Result Comment: [07/08/2017] 18549-118-15 3Admin Note: [facility] 4Admin Note: [facility] [...] Maintenance, 07/18/19 9:13:00 EST, [facility] - [address] [place] [address], 162, cm, 05/23/19 11:50:00 EDT, Height, 116.4, kg, 05/04/19 11:52:00 EDT, Dry Weight Start Date: 07/18/19 Stop Date: 07/19/19 Status: Ordered chlorthalidone 25 mg oral tablet 25 mg, 1, tablet, By Mouth, Daily, # 30 tablet, Refills 2, Tot. Refills 2, Maintenance, 06/17/19 14:30:22 EST, Route to Pharmacy Electronically, NCPDP_ID- [id number], [facility] [address] [facility], please schedule appt for further refills Start Date: 06/17/19 Status: Ordered Claritin 10 mg oral tablet 10 mg, 1, tablet, By Mouth, Daily, for 30 days, # 30 tablet, Refills 11, Tot. Refills 11, Acute 05/11/20 17:36:41 EDT, 05/17/19 17:36:41 EDT, Route to Pharmacy Electronically, NCPDP_[id number], [facility]EENA REINOSO [address] Start Date: 05/17/19 Stop Date: 05/11/20 [...] mL, 5 Refills, Maintenance, 10/01/18 10:08:42 EST, [place], 2 sprays Nares, Both 2 times a [...] 12/08/18 12:09:04 EDT, Route to Pharmacy Electronically, NCPDP_ID-[id number], [facility] [address] [facility] Start Date: 12/08/18 Status: Ordered MiraLax oral [...] 1 tablet by mouth twice a day, [address] Start Date: 05/17/19 Status: Ordered penicillin [...] NEEDED FOR WHEEZING - REPLACES PROAIR, [facility]EE[facility] [address] Start Date: 01/24/19 Status: Ordered [...]
--- OUTSIDE RECORDS SUMMARY | 2024-01-02 21:27 | XMS_ITS | Continuity of Care Document ---
Author Organization [facility] ter Address [address] [place] [address]- Care Team Providers Care Nib Assembler Name Role Phone Fuentes Garcia MD Primary Care Physician [phone] [facility]): [facility]20 - 01/16/[address] [address]- [facility] Discharge Disposition: A-D/C Home Attending Physician: Rocio Perez MD Admitting Physician: Rocio Perez MD Referring Physician: Rocio Perez MD Allergies, Adverse Reactions, [...] H1N1, inactive(oldterm) 7 05/08/11 Given 1Result Comment: [id number] 2Result Comment: [07/08/2017] [id number] 3Admin Note: [facility] 4Admin Note: [facility] [...] 12/06/19 9:16:00 EDT, Route to Pharmacy Electronically, [facility] #[id number], please schedule appt for further refills, 162, cm, 09/21/19 12:01:00 Tc [place] Start Date: 12/06/19 Status: Ordered Claritin 10 mg oral tablet 10 mg, 1, tablet, By Mouth, Daily, for 30 days, # 30 tablet, Refills 11, Tot. Refills 11, Acute 05/11/20 17:36:41 EDT, 05/17/19 17:36:41 EDT, Route to Pharmacy Electronically, KYPDP_[id number], [facility] - [address] [place] [address] Start Date: 05/17/19 Stop Date: 05/11/20 Status: Ordered colchicine 0.6 mg oral tablet See Instructions, take 1 tablet by mouth once daily if needed for PSEUDOGOUT pain, # 30 tablet, Refills 5, Tot. Refills 5, Soft Stop, 01/05/20 8:41:00 EDT, Instructions Replace Required Details, Route to Pharmacy Electronically, [facility]... Start Date: 01/05/20 Status: Ordered [...] Gm, 1 Refills, Maintenance, 12/20/19 16:30:00 EDT, [facility] #[id number], 162, cm, 09/21/19 12:01:00 EST, Height, 116.4, [...] mL, 5 Refills, Maintenance, 10/01/18 10:08:42 EST, [place], 2 sprays Nares, Both 2 times a [...] Acute01/22/20 9:00:00 EDT, 01/16/20 8:10:00 EDT, Capsule, [facility] #[id number], 165, cm, :17:00 EDT, Height, 128.1, kg, 01/16/20 6:17:00 ED... Start Date: 01/16/20 Stop Date: 01/22/20 Status: Ordered metoprolol 25 mg oral tablet 25 mg, 1, tablet, By Mouth, 2 times a day, # 60 tablet, Refills 5, Tot. Refills 5, Maintenance, 09/28/19 11:53:00 EST, Route to Pharmacy Electronically, [facility] #[id number], 162, cm, 09/21/2011:01:00 EST, Height, 116.4, kg, [...] 0 Refills, Maintenance, 01/05/20 11:19:00 EDT, Tablet, [facility] #[id number], 162, cm, 01/05/20 8:32:00 EDT, Height, 116.4... [...] cm, 09/21/19 12:01:00 EST, Height, 116.4, kg, /... Start Date: 11/18/19 Status: Ordered risperiDONE 1 [...] oldest [Reference Range]: 1 2 3 Height 165 cm (01/16/20 6:17 AM) 165 cm (01/11/20 1:09 PM) Weight 128.1 kg (01/16/20 6:17 AM) 113.6 kg (01/11/20 1:09 PM) Oxygen Saturation [94-100 %] 95 % (01/16/20 8:45 AM) 99 % (01/16/20 8:30 AM) 95 % (01/16/20 8:11 AM) Pulse Rate [55-90 bpm] 71 bpm (01/16/20 6:17 AM) Body Mass Index [18.5-24.99] 47.05 *>HHI* (01/16/20 6:17 AM) 41.73 *>HHI* (01/11/20 1:09 PM) Blood Pressure [90-138/55-84 mm Hg] 131/92mm Hg (01/16/20 8:45 AM) 125/82mm Hg (01/16/20 8:30 AM) 111/71mm Hg (01/16/20 8:11 AM) Respiratory Rate [16-30 br/min] 16 br/min (01/16/20 8:45 AM) 15 br/min *L* (01/16/20 8:40 AM) 15 br/min *L* (01/16/20 8:30 AM) Temperature [96.8-100.4 DegF] 97.4 DegF (01/16/20 8:11 AM) 97.9 DegF (01/16/20 6:17 AM) Liters per Minute 2 L/min (01/16/20 8:30 AM) 2 L/min (01/16/20 8:11 AM) Mode of Delivery (Oxygen) Room air (01/16/20 8:45 AM) Simple face mask (01/16/20 8:30 AM) Simple face mask (01/16/20 8:11 AM) Blood pressure sites Arm, left (01/16/20 8:45 AM) Arm, left (01/16/20 8:30 AM) Arm, left (01/16/20 8:11 AM) Temperature Route Temporal (01/16/20 8:11 AM) Temporal (01/16/20 6:17 AM) Dry Weight 128.1 kg (01/16/20 6:17 AM) 113.6 kg (01/11/20 1:09 PM) Weight Obtained Via Standing scale (01/16/20 6:17 AM) Patient/family stated (01/11/20 1:09 PM) Dry Weight Obtained Via Standing scale (01/16/20 6:17 AM) Patient/family stated (01/11/20 1:09 PM) Social History Social History Type Response Smoking Status 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
--- OUTSIDE RECORDS SUMMARY | 2024-01-02 21:27 | XMS_ITS | Continuity of Care Document ---
Author Organization [facility] Buck Nolberto Address [address] [place] [address]- Care Team Providers Care Polarity Tester Name Role Phone Krishan GRIDER, Eulogio Molina Primary Care Physician [facility] - 08/16/22 [facility] Robin Bolañosley Adult [address] [place] [address]- Allergies, Adverse Reactions, Alerts Substance Reaction Severity [...] vaccine, inactivated 05/10/07 Jarrett rded SARS-CoV-2 mRNA ([id number]) vax 08/30/21 Recorded SARS-CoV-2 (COVID-19) mRNA BNT-162b2 vac 01/02/21 Recorded SARS-CoV-2 (COVID-19) mRNA BNT-162b2 vac 12/02/20 Recorded Fluvirin (oldterm) 8 03/22/15 Given Fluzone Preservative-Free (oldterm) 9 03/12/12 Giv en pneumococcal 23-valent vaccine 10/08/11 Given tetanus/diphtheria/pertussis, acel(Tdap) 09/08/11 Given tetanus/diphtheria/pertussis, acel(Tdap) 12/17/06 Recorded influ virus vac, H1N1, inactive(oldterm) 10 05/08/11 Given hepatitis B adult vaccine 06/14/02 Recorded 1Result Comment: [id number] 2Result Comment: [id number] 3Result Comment: [id number] 4Result Comment: [id number] 5Result Comment: [07/08/2017] [id number] 6Admin Note: [facility] 7Admin Note: [facility] [...] Gm, 4 Refills, Maintenance, 04/28/22 13:11:00 EDT, [facility], 17, INHALE 2 PUFFS BY [...] Maintenance, :00:00 EDT, Route to Pharmacy Electronically, [facility], Partial fill upon patient request if the prescription is for a schedule II opioid dr... Start Date: 10/30/21 Status: Ordered docusate sodium 100 mg oral capsule 100 mg, 1, capsule, By Mouth, 2 times a day, hold for loose stool, # 60 capsule, Refills 0, Tot. Refills 0, Maintenance, 01/11/22 7:25:00 EDT, Route to Pharmacy Electronically, [facility], Partial fill upon patient request if the prescri... Start Date: 01/11/22 Stop Date: 02/10/22 Status: Ordered duloxetine 20 mg oral enteric coated capsule 2 capsule = 40 mg, By Mouth, Daily at bedtime, # 60 capsule, 11 Refills, Maintenance, 06/25/21 12:00:00 EST, Capsule, [facility], Partial fill upon patient [...] 07/17/22 17:07:00 EST, Route to Pharmacy Electronically, [facility], 160, cm, 07/17/22 12:03:00 EST, [...] 5 Refills, Maintenance, 07/29/22 6:50:00 EST, Tablet, [facility], Partial fill upon patient [...] tablet, 5 Refills, Maintenance, 07/24/22 23:41:00 EST, [facility], 160, cm, 07/18/22 11:39:00 EST, [...] Gm, 5 Refills, Maintenance, 07/17/22 11:09:00 EST, [facility], 160, cm, 07/17/22 8:49:00 EST, Height, 98.8, kg, 07/17/22 8:58:00 EST, Dry Weight Start Date: 07/17/22 Status: Ordered Symbicort 80mcg/4.5mcg Inhaler See Instructions, INHALE 2 PUFFS BY MOUTH TWICE A DAY RINSE MOUTH AND THROAT AFTER USE, # 10.2 Gm, Refills 5, Maintenance, 07/30/22 21:16:00 EST, Instructions Replace Required Details, Route to Pharmacy Electronically, [id number]_[id number], [facility]... 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 Confirmed [...] Team Personnel Name: Sandra Wills NP Position: [facility] Associate Professional Member Role: Primary Care Nurse Address: Address: [address] [place] [address] [place] [address]- Name: Marley Alejo RN Position: [facility] RN Member Role: Primary Care Nurse Name: Eulogio Nickerson MD Position: [facility] Primary Care Physician Member Role: PCP Address: Address: [address] [place] [id number]- Name: Alma Delia Fonseca PharmD Position: [facility] Associate Professional Member Role: Lifetime Consulting Provider Address: Address: [address] [place] [address] Coumadin [place], [place] [address] Name: Yolis Mattson RN Position: [facility] RN Member Role: Primary Care Nurse Name: Priscila Garzon RN Position: [facility] RN Member Role: Primary Care Nurse Name: Renea Mart RN Position: [facility] RN Member Role: Primary Care Nurse Care Team Related Persons Name: FAUZIA JANSEN Address: home [address] [place] [address] Name: AURELIA SHETH Address: [address] [place] [address] Name: BRE OSORIO Address: [address] [place] [address]
--- OUTSIDE RECORDS SUMMARY | 2024-01-02 21:27 | XMS_ITS | Continuity of Care Document ---
Author Organization [facility] Robin Jane Nolberto Address [address] [place] [address]- Care Team Providers Care Torpedoman'S Mate Name Role Phone Kyle Ahumada DO Primary Care Physician [phone] [facility] Date(s): 10/23/23 - 11/22/23 [facility] Robin Bolañosley Adult [address] [place] [address]- Allergies, Adverse Reactions, Alerts Substance Reaction Severity [...] vaccine, inactivated 05/10/07 Jarrett rded SARS-CoV-2 mRNA ([id number]) vax 08/30/21 Recorded SARS-CoV-2 (COVID-19) mRNA BNT-162b2 vac 01/02/21 Recorded SARS-CoV-2 (COVID-19) mRNA BNT-162b2 vac 12/02/20 Recorded Fluvirin (oldterm) 10 03/22/15 Given Fluzone Preservative-Free (oldterm) 11 03/12/12 Gi octavio pneumococcal 23-valent vaccine 10/08/11 Given tetanus/diphtheria/pertussis, acel(Tdap) 09/08/11 Given tetanus/diphtheria/pertussis, acel(Tdap) 12/17/06 Recorded influ virus vac, H1N1, inactive(oldterm) 12 05/08/11 Given hepatitis B adult vaccine 06/14/02 Recorded 1Result Comment: PCV 20 [facility]#[id number] 2Result Comment: Flu [facility]#[id number] 3Result Comment: [id number] 4Result Comment: [id number] 5Result Comment: [id number] 6Result Comment: [id number] 7Result Comment: [07/08/2017] 34410-994-19 8Admin Note: [facility] 9Admin Note: [facility] 9-13 10Admin Note: Given at [facility] 11Admin Note: 03-11-12 GIVEN AT [facility] 12Admin Note: rcvd elsewhere Medications acetaminophen 325 mg oral tablet 2, tablet, By Mouth, Every 6 hours, PRN, # 100 tablet, Refills 5, Maintenance, NEEDED FOR MODERATE PAIN (VIAL), 09/14/23 15:41:00 EST, Route to Pharmacy Electronically, [facility], 160, cm, 07/07/23 15:02:00 EST, Height, 112.4, kg, 06/24/23... Start Date: 09/14/23 Status: Ordered Albuterol (Eqv-ProAir HFA) 90 mcg/inh inhalation aerosol 2 puffs, Inhalation, Every 4 hours, PRN NEEDED FOR WHEEZING OR FOR SHORTNESS OF BREATH (BULK), #8.5 Gm, 5 Refills, Maintenance, 07/25/23 11:45:00 EST, [facility], 17, INHALE 2 PUFFS BY MOUTH [...] 10/07/23 15:53:00 EDT, [facility], 160, cm, 07/07/2315:02:00 EST, Height, 112.4, kg, 06/24/23 17:38:00... Start Date: 10/07/23 Status: Ordered docusate sodium 100 mg oral capsule 100 mg, 1, capsule, By Mouth, 2 times a day, hold for loose stool, # 180 capsule, Refills 3, Tot. Refills 3, Maintenance, 03/13/23 16:56:00 EDT, Route to Pharmacy Electronically, [facility], Partial fill upon patient request if the prescriptio... Start Date: 03/13/23 Stop Date: 04/12/23 Status: Ordered duloxetine 20 mg oral enteric coated capsule 2 capsule = 40 mg, By Mouth, Daily at bedtime, # 60 capsule, 11 Refills, Maintenance, 06/25/21 12:00:00 EST, Capsule, [facility], [...] Details, [facility], [facility], 160, cm, 07/07/23 15:02:00 EST, Height,... Start Date: 07/28/23 Status: Ordered furosemide 40 mg oral tablet 40 mg, 1, tablet, By Mouth, Daily, # 90 tablet, Refills 1, Tot. Refills 1, Maintenance, 03/02/23 18:12:00 EDT, Route to Pharmacy Electronically, [facility], Partial fill upon patient request if the prescription is for a schedule II opioid drug... Start Date: 03/02/23 Status: Ordered gabapentin 300 mg oral capsule See Instructions, TAKE ONE CAPSULE BY MOUTH THREE TIMES A DAY ^1R1,1R3,1R4, # 90 capsule, Refills 2, Maintenance, 11/20/23 16:26:00 EDT, Instructions Replace Required Details, Route to Pharmacy Electronically, [facility], 160, cm, 11/12/23 13:... Start [...] Maintenance, 08/11/23 7:46:00 EST, [facility], 30, INSTILL 2 SPRAYS IN [...] 07/01/23 14:32:00 EST, Route to Pharmacy Electronically, [facility], 160, cm, 06/26/23 11:21:00 EST, Height, 112.4, kg, 06/24/23 17:38:00 EST, Dry Weight Start Date: 07/01/23 Status: Ordered metFORMIN 500 mg oral tablet 1 tablet = 500 mg, By Mouth, 2 times a day, # 60 tablet, 5 Refills, Maintenance, 07/07/23 15:26:00 EST, Tablet, [facility], Partial fill upon patient request if the prescription is for a schedule II opioid drug., 160, cm, 07/07/23 15:02:00 EST... Start Date: 07/07/23 Stop Date: 01/03/24 Status: Ordered nicotine 21 mg/24 hr transdermal film, extended release 1 patch, Topically, Daily, # 28 patch, 3 Refills, Maintenance, 09/14/23 15:41:00 EST, [facility], 28, APPLY 1 PATCH TOPICALLY DAILY, [...] tablet, 5 Refills, Maintenance, 08/19/23 10:06:00 EST, [facility], 160, cm, 07/07/23 15:02:00 EST, Height, 112.4, kg, 06/24/23 17:38:00 EST,Dry Weight Start Date: 08/19/23 Status: Ordered Rhinocort Allergy 32 mcg/inh nasal spray 2 sprays = 64 mcg, Nares, Both, Daily, # 8.43 mL, 5 Refills, Maintenance, 11/12/23 13:55:00 EDT, [place], [facility], Partial fill upon patient request if the prescription is for a schedule II opioid drug., 160, cm, 11/12/23 13:36:00 EDT, Height... Start Date: 11/12/23 Status: Ordered rOPINIRole 0.5 mg oral tablet 1 tablet, By Mouth, 3 times a day, ^1R1,1R3,1R4., # 90 tablet, 5 Refills, Maintenance, 10/11/23 20:09:00 EDT, [facility], 160, cm, 07/07/23 15:02:00 EST, Height, 112.4, kg, 06/24/23 17:38:00 EST, Dry Weight Start Date: 10/11/23 Status: Ordered rosuvastatin 10 mg oral tablet 1 tablet, By Mouth, Daily, ^1R1., # 30 tablet, 5 Refills, Maintenance, 07/01/23 14:33:00 EST, [facility], 160, cm, 06/26/23 11:21:00 EST, Height, 112.4, kg, 06/24/23 17:38:00 EST, Dry Weight Start Date: 07/01/23 Status: Ordered Symbicort 160mcg/4.5mcg Inhaler 2, puffs, Inhalation, 2 times a day, # 10.2 Gm, Refills 11, Tot. Refills 11, Maintenance, 06/03/23 11:47:00 EST, Aerosol, Route to Pharmacy Electronically, [id number], [facility], 160, cm, 06/03/23 11:30:00 EST, Height, 98.8, kg, ... Start Date: 06/03/23 Status: Ordered tiZANidine 4 mg oral capsule 1 capsule = 4 mg, By Mouth, 3 times a day, PRN Spasm, can increae to 2 at a time if needed, # 90 capsule, 2 Refills, Maintenance, 11/12/23 14:03:00 EDT, Capsule, [facility], Partial fill uponpatient request if the [...] 30 tablet, 5 Refills, Maintenance, 10/26/23 10:04:00 EDT,[facility], 160, cm, 10/16/23 10:41:00 EDT, Height, [...] Type Response Smoking Status Current every day oker; Type: Cigarettes; Other: 1 pack daily; entered on: 04/19/18 Sex Female Patient Care team information Care Team Personnel Name: Sandra Wills NP Position: [facility] PCO Associate Professional Member Role: Primary Care Nurse Address: Address: [address] [facility] [place] [address]- [place] Name: Marley Alejo RN Position: [facility] RN Member Role: Primary Care Nurse Name: Rashi Dewitt RN Position: [facility] RN Member Role: Primary Care Nurse Name: Alma Delia Fonseca PharmD Position: [facility] Associate Professional Member Role: Lifetime Consulting Provider Address: Address: [address] [facility] [place] [address]- [place] Name: Priscila Garzon RN Position: [facility] RN Member Role: Primary Care Nurse Name: Kyle Ahumada DO Position: [facility] Physician - Primary Care Member Role: PCP Address: Address: [address] [facility] [place] [address]- [place] Name: Renea Mart RN Position: [facility] RN Member Role: Primary Care Nurse Care Team Related Persons Name: FAUZIA JANSEN Address: home [address] [place] [address] Name: AURELIA SHETH Address: home [address] [place] [id number] Name: BRE OSORIO Address: home [address] [place] [address]
--- OUTSIDE RECORDS SUMMARY | 2024-01-02 21:27 | XMS_ITS | Continuity of Care Document ---
Author Organization [facility] Robin Jane Nolberto Address [address] [place] [address]- Care Team Providers Care Air Drill Operator Name Role Phone Kyle Ahumada DO Primary Care Physician Encounter [facility] [place] Date(s): 04/16/23 - 05/16/23 [facility] Robin Bolañosley Adult [address] [place] [address]- Allergies, Adverse Reactions, Alerts Substance Reaction Severity [...] vaccine, inactivated 05/10/07 Jarrett rded SARS-CoV-2 mRNA (xfebzkf-iurx-pemos) vax 08/30/21 Recorded SARS-CoV-2 (COVID-19) mRNA BNT-162b2 vac 01/02/21 Recorded SARS-CoV-2 (COVID-19) mRNA BNT-162b2 vac 12/02/20 Recorded Fluvirin (oldterm) 8 03/22/15 Given Fluzone Preservative-Free (oldterm) 9 03/12/12 Giv en pneumococcal 23-valent vaccine 10/08/11 Given tetanus/diphtheria/pertussis, acel(Tdap) 09/08/11 Given tetanus/diphtheria/pertussis, acel(Tdap) 12/17/06 Recorded influ virus vac, H1N1, inactive(oldterm) 10 05/08/11 Given hepatitis B adult vaccine 06/14/02 Recorded 1Result Comment: [id number] 2Result Comment: [id number] 3Result Comment: [id number] 4Result Comment: [id number] 5Result Comment: [07/08/2017] [id number] 6Admin Note: [facility] 7Admin Note: [facility] 04-08 8Admin Note: Given at [facility] 9Admin Note: 03-11-12 GIVEN AT [facility] 10Admin Note: rcvd elsewhere Medications acetaminophen 325 mg oral tablet 2, tablet, By Mouth, Every 6 hours, PRN, # 100 tablet, Refills 5, Maintenance, NEEDED FOR MODERATE PAIN (VIAL), 04/23/23 12:55:00 EDT, Route to Pharmacy Electronically, [facility], 160, cm, 04/02/23 12:45:00 EDT, Height, 98.8, kg, 07/17/22... Start Date: 04/23/23 Status: Ordered Albuterol (Eqv-ProAir HFA) 90 mcg/inh inhalation aerosol See Instructions, INHALE 2 PUFFS BY MOUTH EVERY FOUR HOURS NEEDED FOR WHEEZING OR SHORTNESS OF BREATH, # 8.5 Gm, 5 Refills, Maintenance, 03/13/23 9:55:00 EDT, [facility], 30, INHALE 2 PUFFS BY MOUTH [...] 05/09/23 20:57:00 EDT, Route to Pharmacy Electronically, [facility], 160, cm, 04/02/2312:45:00 EDT, Height, 98.8, kg, 07/17/22 8:58:00 ES... Start Date: 05/09/23 Status: Ordered cyclobenzaprine 5 mg oral tablet 1 tablet = 5 mg, By Mouth, 3 times a day, PRN Spasm, can increase to 2 three time a day if needed, # 90 tablet, 2 Refills, Maintenance, 04/02/23 12:59:00 EDT, Tablet, [facility], Partial fillupon patient request if the prescription is for a s... Start Date: 04/02/23 Status: Ordered DilTIAZem (Eqv-Dilacor XR) 240 mg/24 hours oral capsule, extended release 1 capsule = 240 mg, By Mouth, Daily, # 90 capsule, 3 Refills, Maintenance, 03/13/23 17:04:00 EDT, CD Capsule, [facility], Partial fill upon patient request [...] 03/13/23 16:56:00 EDT, Route to Pharmacy Electronically, [facility], Partial fill upon patient request if the prescriptio... Start Date: 03/13/23 Stop Date: 04/12/23 Status: Ordered duloxetine 20 mg oral enteric coated capsule 2 capsule = 40 mg, By Mouth, Daily at bedtime, # 60 capsule, 11 Refills, Maintenance, 06/25/21 12:00:00 EST, Capsule, [facility], Partial fill upon patient [...] 03/02/23 18:12:00 EDT, [facility], [email or web address], Partial fill upon patient request if the prescription is for a schedule II opioid drug... Start Date: 03/02/23 Status: Ordered ipratropium nasal 21 mcg/inh spray 2 sprays = 42 mcg, Nares, Both, 2 times a day, # 30 mL, 5 Refills, Maintenance, 03/13/23 16:58:00 EDT, [place], [facility], Partial fill upon patient [...] 02/07/23 18:12:00 EDT, Route to Pharmacy Electronically, [email or web address], 160, cm, 12/16/22 10:46:00 EDT, Height, [...] 3 Refills, Maintenance, 03/13/23 17:03:00 EDT, Patch, [facility], Partial fill upon patient request if the prescription is for a schedule II opioid drug., 1 patch Topically Daily, 160, cm, 03/02/23 9:56:0... Start Date: 03/13/23 Status: Ordered penicillin V potassium 250 mg oral tablet 1 tablet, By Mouth, 2 times a day, ^1R1,1R4., # 60 tablet, 5 Refills, Maintenance, 04/10/23 16:03:00 EDT, [facility], 160, cm, 04/02/23 12:45:00 EDT, Height, 98.8, kg, 07/17/22 8:58:00 EST, Dry Weight Start Date: 04/10/23 Status: Ordered rOPINIRole 0.5 mg oral tablet 1 tablet, By Mouth, 3 times a day, ^1R1,1R3,1R4., # 90 tablet, 5 Refills, Maintenance, 05/09/23 20:56:00 EDT, [facility], 160, cm, 04/02/23 12:45:00 EDT, Height, 98.8, kg, 07/17/22 8:58:00 EST, Dry Weight Start Date: 05/09/23 Status: Ordered rosuvastatin 10 mg oral tablet 1 tablet, By Mouth, Daily, ^1R1., # 30 tablet, 5 Refills, Maintenance, 02/07/23 18:12:00 EDT, [facility], 160, cm, 12/16/22 10:46:00 EDT, Height, 98.8, kg, 07/17/22 8:58:00 EST, Dry Weight Start Date: 02/07/23 Status: Ordered Symbicort 80mcg/4.5mcg Inhaler See Instructions, INHALE 2 PUFFS BY MOUTH TWICE A DAY RINSE MOUTH AND THROAT AFTER USE, # 10.2 Gm, Refills 5, Tot. Refills 5, Maintenance, 03/13/23 10:13:00 EDT, Instructions Replace Required Details, Route to Pharmacy Electronically, [id number]... Start Date: 03/13/23 Status: Ordered Xarelto 20 mg oral tablet 1 tablet = 20 mg, By Mouth, Daily at supper, # 90 tablet, 1 Refills, Maintenance, 03/02/23 18:12:00EDT, Tablet, [facility], pt was rx'd w diltiazem on [...] Role: Primary Care Nurse Address: Address: [address] [place] [address] [place] [address]- Name: Marley Alejo RN Position: S RN Member Role: Primary Care Nurse Name: Alma Delia Fonseca PharmD Position: [facility] Associate Professional Member Role: Lifetime Consulting Provider Address: Address: [address] [facility] [place] [address]- [place] Name: Yolis Mattson RN Position: S RN Member Role: Primary Care Nurse Name: Priscila Garzon RN Position: S RN Member Role: Primary Care Nurse Name: Kyle Ahumada DO Position: [facility] Physician - Primary Care Member Role: PCP Address: Address: [address] [place] [address]- Name: Renea Mart RN Position: [facility] RN Member Role: Primary Care Nurse Care Team Related Persons Name: FAUZIA JANSEN Address: home [address] [place] [address] Name: AURELIA SHETH Address: home [address] [place] [address] Name: BRE OSORIO Address: home [address] [place] [address]
--- OUTSIDE RECORDS SUMMARY | 2024-01-02 21:27 | XMS_ITS | Continuity of Care Document ---
Author Organization [facility] Nolberto Address [address] [place] [address]- Care Team Providers Care Manager Plant Name Role Phone Krishan GRIDER, Eulogio Molina Primary Care Physician [phone] [facility]counter [facility] Date(s): 08/14/21 - 09/13/21 [facility] Adult [address] [place] [address]- Allergies, Adverse Reactions, Alerts Substance Reaction Severity Status Adhesive Bandage Active Dust copd exac/sinus congestion A ctive Immunizations Given and Recorded Vaccine Date Status Refusal Reason SARS-CoV-2 mRNA (evwpygj-uygx-sbfcn) vax 08/30/21 Recorded influenza virus vaccine, inactivated [...] B adult vaccine 06/14/02 Recorded 1Result Comment: [id number] 2Result Comment: [id number] 3Result Comment: [id number] 4Result Comment: [07/08/2017] 04881-074-89 5Admin Note: [facility] 6Admin Note: [facility] [...] 8.5 Gm, 5 Refills, 05/29/21 17:13:00 EDT, [id number], 17, INHALE 2 PUFFS BY MOUTH EVERY 4 HOURS NEEDED FOR WHEEZING OR SHORTNE... Start Date: 05/29/21 Status: Ordered calcipotriene 0.005% topical cream 1 application, Topically, 2 times a day, # 60 Gm, 11 Refills, Maintenance, 10/31/20 14:14:00 EDT, Cream, [facility][id number], Partial fill upon patient request if the prescription is for a schedule II opioid drug., 1 application Topically 2 ti... Start Date: 10/31/20 Status: Ordered chlorthalidone 25 mg oral tablet 1, tablet, By Mouth, Daily, # 90 tablet, Refills 3, [facility], [facility], 165, cm, 06/25/21 11:35:00 EST, [...] 11 Refills, Maintenance, 06/25/21 12:00:00 EST, Capsule, [email or web address], Partial fill upon patient request if [...] Gm, 3 Refills, Maintenance, 06/22/20 14:58:00 EST, [id number], 165, cm, 06/07/20 13:52:00 EST, Height, 127, [...] Required Details, Route to Pharmacy Electronically, [facility] [place]... Start Date: 09/05/21 Status: Ordered HydrOXYzine PRn , rare use, 0 Refills, Maintenance, 04/30/20 15:04:00 EDT Start Date: 04/30/20 Status: Ordered ipratropium nasal 21 mcg/inh spray 2 sprays, Nares, Both, 2 times a day, # 30 mL, 5 Refills, Maintenance, 10/01/18 10:08:42 EST, [place], 2 sprays Nares, Both 2 times a [...] Required Details, Route to Pharmacy Electronically, [facility], 165, cm, 06/25/21 11:35:00 EST, [...] 6Refills, Maintenance, 05/21/21 11:19:00 EDT, Tablet, [facility], Partial fill upon patient request if the prescription is for a schedule II... Start Date: 05/21/21 Status: Ordered methenamine hippurate 1 gm oral tablet 1 tablet = 1 Gm, By Mouth, 2 times a day, # 60 tablet, 11 Refills, Maintenance, 07/05/21 14:00:00 EST, [facility], Partial fill upon patient request if the prescription is for a schedule II opioid drug., 165, cm, 02/28/21 14:22:00 EDT, Height,... Start Date: 07/05/21 Status: Ordered Mitigare 0.6 mg oral capsule 1 capsule, By Mouth, Daily, # 30 capsule, 11 Refills, Maintenance, 12/31/20 16:51:00 EDT, [id number], 165, cm, 11/19/20 11:32:00 EDT, Height, 127, kg, 02/03/20 14:39:00 EDT, Dry Weight Start Date: 12/31/20 Status: Ordered penicillin V potassium 250 mg oral tablet 1 tablet = 250 mg, By Mouth, 2 times a day, Cellulitis prophylaxis, # 60 tablet, 11 Refills, Maintenance, 10/30/20 12:09:00 EDT, [id number], 165, cm, 10/19/20 8:59:00 EDT, Height, 127, kg, 02/03/20 14:39:00 EDT, Dry Weight Start Date: 10/30/20 Status: Ordered propranolol 20 mg oral tablet 20 mg, 1, tablet, By Mouth, 2 times a day, Stop metoprolol, # 60 tablet, Refills 5, Tot. Refills 5,Maintenance, 09/05/21 6:13:00 EST, Route to Pharmacy Electronically, [facility], Partial fill upon patient request if the prescription is for a... Start Date: 09/05/21 Status: Ordered risperiDONE 1 mg oral tablet take 1 tablet by mouth twice a day Start Date: 05/23/19 Status: Ordered rOPINIRole 0.5 mg oral tablet 1 tablet, By Mouth, 3 times a day, # 90 tablet, 3 Refills, [facility], 165, cm, 06/25/21 11:35:00 EST, Height, 127, kg, 02/03/20 14:39:00 EDT, Dry Weight Start Date: 07/09/21 Status: Ordered rosuvastatin 10 mg oral tablet 1 tablet = 10 mg, By Mouth, Daily, # 90 tablet, 1 Refills, Maintenance, 05/20/21 15:53:00 EDT, Tablet, [facility], d/c rx for capsules, 165, [...] 6 Refills, Maintenance, 06/12/21 17:09:00 EST, Tablet, [email or web address], Dosing Subject To Change per INR Result per MD,165, cm, 05/21/21 10:54:00 EDT, Height, 127, kg, 07... Start Date: 06/12/21 Status: Ordered warfarin 5 mg oral tablet See Instructions, Dosing Subject To Change Per INR Result per MD, # 30 each, 6 Refills, Maintenance, 06/12/21 17:05:00 EST, Tablet, [email or web address], PLEASE GIVE BOTH 5MG TABLETS AND [...]
--- OUTSIDE RECORDS SUMMARY | 2024-01-02 21:27 | XMS_ITS | Continuity of Care Document ---
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 Start Date: 06/04/20 Status: Ordered Claritin 10 mg oral tablet 10 mg, 1, tablet, By Mouth, Daily, for 90 days, # 90 tablet, Refills 3, Tot. Refills 3, Acute 07/28/21 15:22:00 EST, 08/02/20 15:22:00 EST, Route to Pharmacy Electronically, [facility] #[id number], 165, cm, 07/31/20 14:32:00 EST, Height, 127, kg,... Start Date: 08/02/20 Stop Date: 07/28/21 Status: Ordered colchicine 0.6 mg oral tablet See Instructions, take 1 tablet by mouth once daily if needed for PSEUDOGOUT pain, # 30 tablet, Refills 5, Tot. Refills 5, Soft Stop, 01/05/20 8:41:00 EDT, Instructions Replace Required Details, Route to Pharmacy Electronically, [facility] #... Start Date: 01/05/20 Status: Ordered Disposable [...] Gm, 3 Refills, Maintenance, 06/22/20 14:58:00 EST, [facility] #[id number], 165, cm, 06/07/20 13:52:00 EST, Height, 127, [...] mL, 5 Refills, Maintenance, 10/01/18 10:08:42 EST, [place], 2 sprays Nares, Both 2 times a [...] 08/02/20 16:13:00 EST, Route to Pharmacy Electronically, [facility] #[id number], D/C RX ON FILE FOR ABRAM, 165, [...] tablet, 1 Refills, Maintenance, 07/12/20 13:56:00 EST, [facility] #[id number], Partial fill upon patient request if the prescription is for a schedule II opioid drug., 165, cm, 07/11/20 15:24:00 EST,... Start Date: 07/12/20 Stop Date: 07/05/21 Status: Ordered metoprolol 25 mg oral tablet 25 mg, 1, tablet, By Mouth, 2 times a day, # 60 tablet, Refills 5, Tot. Refills 5, Maintenance, 09/22/20 13:59:00 EST, Route to Pharmacy Electronically, [facility] #[id number], 165, cm, 07/31/2113:32:00 EST, Height, 127, kg, [...] 0 Refills, Maintenance, 06/18/20 16:57:00 EST, Patch, [facility] #[id number], Partial fill upon patient request, 165, cm, 06/07/20 13:52:00 EST, Height, 127, kg, 02/03/20 14:39:00 EDT, Dry Weight Start Date: 06/18/20 Stop Date: 07/30/20 Status: Ordered NuLYTELY with Flavor Packs oral powder for reconstitution See Instructions, Drink 240mL every 15-20 minutes until first half is gone. Repeat 6 hours prior toprocedure., # 4,000 mL, 0 Refills, Maintenance, 06/28/20 17:09:00 EST, [facility] #[id number],Partial fill upon patient request if the prescript... Start Date: 06/28/20 Status: Ordered oxyCODONE 10 mg oral tablet 1 tablet = 10 mg, By Mouth, Every 8 hours, DX Z79.891 G89.29 M47.816 OK TO FILL LESS THAN PRESCRIBED AMOUNT, # 84 tablet, 0 Refills, Maintenance, 10/08/20 16:54:00 EDT, Tablet, [facility] #[id number], 10/09/20, 165, cm, 07/31/20 14:32:00 EST, He... [...] 0 Refills, Maintenance, 10/12/20 9:55:00 EDT, Tablet, [facility] #[id number], Partial fill upon patient request if the [...] 5 Refills, Maintenance, 04/30/20 15:13:00 EDT, Tablet, [facility] #[id number], 165, cm, 04/30/20 14:30:00 EDT, Height, 127, kg, 02/03/20 14:39:00 EDT, Dry Weight Start Date: 04/30/20 Status: Ordered rosuvastatin 10 mg oral tablet 1 tablet = 10 mg, By Mouth, Daily, # 90 tablet, 3 Refills, Maintenance, 05/03/20 16:35:00 EDT, Tablet, [facility] #[id number], d/c rx for capsules, 165, cm, 04/30/20 14:30:00 EDT, Height, 127, kg, 02/03/20 14:39:00 EDT, Dry Weight Start Date: 05/03/20 Status: Ordered Ventolin HFA 108 mcg/inh inhalation aerosol with adapter 2 puffs, Inhalation, Every 4 hours, PRN Wheezing/Shortness of Breath, # 1 each, 11 Refills, Soft Stop, 01/19/20 11:46:00 EDT, [facility] #[id number], 165, cm, 01/16/20 6:17:00 EDT, Height, 128.1, kg, 01/16/20 6:17:00 EDT, Dry Weight Start Date: 01/19/20 Status: Ordered warfarin 5 mg oral tablet 1 tablet = 5 mg, By Mouth, Daily, dosing subject to change pending inr lab values, # 30 tablet, 11 Refills, Maintenance, 08/31/20 15:36:00 EST, Tablet, [facility] #[id number], 165, cm, 07/31/20 14:32:00 EST, Height, 127, [...] Dates Health Status Clinical Service Informant Chronic back pain Discharge Diagnosis 10/12/20 Fibromyalgia Discharge Diagnosis 10/12/20 half-way current use of opiate analgesic Discharge Diagnosis 10/12/20 Other Pain Disorders Related to Psychological Factors Discharge Diagnosis 10/12/20 Vital Signs Most recent to oldest [Reference Range]: 1 Height 165 cm (10/12/20 8:22 AM) Weight 129.5 kg (10/12/20 8:22 AM) Body Mass Index [18.5-24.99] 47.57 *>HHI* (10/12/20 8:22 AM) Weight Obtained Via Standing scale (10/12/20 8:22 AM) Social History Social History Type Response Smoking Status 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
--- OUTSIDE RECORDS SUMMARY | 2024-01-02 21:27 | XMS_ITS | Continuity of Care Document ---
Author Organization [facility] Robin Jane Nolberto Address [address] [place] [address]- Care Team Providers Care Veneer Production Machine Operator Name Role Phone Fuentes Garcia MD Primary Care Physician [facility]): 09[facility]12/20 - 10/12/20 [facility] Robin Bolañosley Adult [address] [place] [address]- Allergies, Adverse Reactions, Alerts Substance Reaction Severity [...] H1N1, inactive(oldterm) 8 05/08/11 Given 1Result Comment: [id number] 2Result Comment: [id number] 3Result Comment: [07/08/2017] [id number] 4Admin Note: [facility] 5Admin Note: [facility] [...] 5 Refills, Maintenance, 07/03/20 9:16:00 EST, Cream, [facility] #[id number], Partial fill upon patient request if the [...] 06/04/20 12:56:00 EST, Route to Pharmacy Electronically, [facility] #[id number], please schedule appt for further refills, 165, cm, 05/16/20 14:15:00 EDT, Hei... Start Date: 06/04/20 Status: Ordered Claritin 10 mg oral tablet 10 mg, 1, tablet, By Mouth, Daily, for 90 days, # 90 tablet, Refills 3, Tot. Refills 3, Acute 07/28/21 15:22:00 EST, 08/02/20 15:22:00 EST, Route to Pharmacy Electronically, [facility] #[id number], 165, cm, 07/31/20 14:32:00 EST, Height, 127, kg,... Start Date: 08/02/20 Stop Date: 07/28/21 Status: Ordered colchicine 0.6 mg oral tablet See Instructions, take 1 tablet by mouth once daily if needed for PSEUDOGOUT pain, # 30 tablet, Refills 5, Tot. Refills 5, Soft Stop, 01/05/20 8:41:00 EDT, Instructions Replace Required Details, Route to Pharmacy Electronically, [facility] #... Start Date: 01/05/20 Status: Ordered [...] Gm, 3 Refills, Maintenance, 06/22/20 14:58:00 EST, [facility] #[id number], 165, cm, 06/07/20 13:52:00 EST, Height, 127, [...] mL, 5 Refills, Maintenance, 10/01/18 10:08:42 EST, [place], 2 sprays Nares, Both 2 times a [...] 08/02/20 16:13:00 EST, Route to Pharmacy Electronically, [facility] #[id number], D/C RX ON FILE FOR ABRAM, 165, [...] tablet, 1 Refills, Maintenance, 07/12/20 13:56:00 EST, [facility] #[id number], Partial fill upon patient request if the prescription is for a schedule II opioid drug., 165, cm, 07/11/20 15:24:00 EST,... Start Date: 07/12/20 Stop Date: 07/05/21 Status: Ordered metoprolol 25 mg oral tablet 25 mg, 1, tablet, By Mouth, 2 times a day, # 60 tablet, Refills 5, Tot. Refills 5, Maintenance, 09/22/20 13:59:00 EST, Route to Pharmacy Electronically, [facility] #[id number], 165, cm, 07/31/2113:32:00 EST, Height, 127, kg, [...] 0 Refills, Maintenance, 06/18/20 16:57:00 EST, Patch, [facility] #[id number], Partial fill upon patient request, 165, cm, 06/07/20 13:52:00 EST, Height, 127, kg, 02/03/20 14:39:00 EDT, Dry Weight Start Date: 06/18/20 Stop Date: 07/30/20 Status: Ordered NuLYTELY with Flavor Packs oral powder for reconstitution See Instructions, Drink 240mL every 15-20 minutes until first half is gone. Repeat 6 hours prior toprocedure., # 4,000 mL, 0 Refills, Maintenance, 06/28/20 17:09:00 EST, [facility] #[id number],Partial fill upon patient request if the prescript... Start Date: 06/28/20 Status: Ordered oxyCODONE 10 mg oral tablet 1 tablet = 10 mg, By Mouth, Every 8 hours, DX Z79.891 G89.29 M47.816 OK TO FILL LESS THAN PRESCRIBED AMOUNT, # 84 tablet, 0 Refills, Maintenance, 10/08/20 16:54:00 EDT, Tablet, [facility] #[id number], 10/09/20, 165, cm, 07/31/20 14:32:00 EST, He... [...] 0 Refills, Maintenance, 10/12/20 9:55:00 EDT, Tablet, [facility] #[id number], Partial fill upon patient request if the [...] 5 Refills, Maintenance, 04/30/20 15:13:00 EDT, Tablet, [facility] #[id number], 165, cm, 04/30/20 14:30:00 EDT, Height, 127, kg, 02/03/20 14:39:00 EDT, Dry Weight Start Date: 04/30/20 Status: Ordered rosuvastatin 10 mg oral tablet 1 tablet = 10 mg, By Mouth, Daily, # 90 tablet, 3 Refills, Maintenance, 05/03/20 16:35:00 EDT, Tablet, [facility] #[id number], d/c rx for capsules, 165, cm, 04/30/20 14:30:00 EDT, Height, 127, kg, 02/03/20 14:39:00 EDT, Dry Weight Start Date: 05/03/20 Status: Ordered Ventolin HFA 108 mcg/inh inhalation aerosol with adapter 2 puffs, Inhalation, Every 4 hours, PRN Wheezing/Shortness of Breath, # 1 each, 11 Refills, Soft Stop, 01/19/20 11:46:00 EDT, [facility] #[id number], 165, cm, 01/16/20 6:17:00 EDT, Height, 128.1, kg, 01/16/20 6:17:00 EDT, Dry Weight Start Date: 01/19/20 Status: Ordered warfarin 5 mg oral tablet 1 tablet = 5 mg, By Mouth, Daily, dosing subject to change pending inr lab values, # 30 tablet, 11 Refills, Maintenance, 08/31/20 15:36:00 EST, Tablet, [facility] #[id number], 165, cm, 07/31/20 14:32:00 EST, Height, 127, [...]
--- OUTSIDE RECORDS SUMMARY | 2024-01-02 21:27 | XMS_ITS | Continuity of Care Document ---
Author Organization [facility] Buck Nolberto lt Address [address] [place] [address]- Care Team Providers Care Sap Business Intelligence Consultant Name Role Phone Fuentes Garcia MD Primary Care Physician [facility]): 01/16/21 - 02/15/21 [facility] Adult [address] [place] [address]- Allergies, Adverse Reactions, Alerts Substance Reaction Severity [...] B adult vaccine 06/14/02 Recorded 1Result Comment: [id number] 2Result Comment: [id number] 3Result Comment: [07/08/2017] [id number] 4Admin Note: [facility] 5Admin Note: [facility] [...] 11 Refills, Maintenance, 10/31/20 14:14:00 EDT, Cream, [facility] #[id number], Partial fill upon patient request if the [...] 02/12/21 12:56:00 EDT, Route to Pharmacy Electronically, [facility] #[id number], 165, cm, 01/11/21 14:05:00 EDT, Height, 127, kg, 02/03/20 14:39:00 EDT, Dry Weight Start Date: 02/12/21 Status: Ordered Claritin 10 mg oral tablet 10 mg, 1, tablet, By Mouth, Daily, for 90 days, # 90 tablet, Refills 3, Tot. Refills 3, Acute 07/28/21 15:22:00 EST, 08/02/20 15:22:00 EST, Route to Pharmacy Electronically, [facility] #[id number], 165, cm, 07/31/20 14:32:00 EST, Height, 127, [...] PMR, history of smoking fax to : [phone], 04... Start Date: 10/26/20 Status: Ordered Disposable [...] Gm, 3 Refills, Maintenance, 06/22/20 14:58:00 EST, [facility] #[id number], 165, cm, 06/07/20 13:52:00 EST, Height, 127, [...] mL, 5 Refills, Maintenance, 10/01/18 10:08:42 EST, [place], 2 sprays Nares, Both 2 times a [...] 08/02/20 16:13:00 EST, Route to Pharmacy Electronically, [facility] #[id number], D/C RX ON FILE FOR CLARITAN, 165, [...] tablet, 1 Refills, Maintenance, 07/12/20 13:56:00 EST, [facility] #[id number], Partial fill upon patient request if the prescription is for a schedule II opioid drug., 165, cm, 07/11/20 15:24:00 EST,... Start Date: 07/12/20 Stop Date: 07/05/21 Status: Ordered metoprolol 25 mg oral tablet 25 mg, 1, tablet, By Mouth, 2 times a day, # 60 tablet, Refills 5, Tot. Refills 5, Maintenance, 09/22/20 13:59:00 EST, Route to Pharmacy Electronically, [facility] #[id number], 165, cm, 07/31/2113:32:00 EST, Height, 127, kg, 02/03/20 14:39:00 ED... Start Date: 09/22/20 Status: Ordered Mitigare 0.6 mg oral capsule 1 capsule, By Mouth, Daily, # 30 capsule, 11 Refills, Maintenance, 12/31/20 16:51:00 EDT, [facility] #[id number], 165, cm, 11/19/20 11:32:00 EDT, Height, 127, [...] 0 Refills, Maintenance, 06/18/20 16:57:00 EST, Patch, [facility] #[id number], Partial fill upon patient request, 165, cm, 06/07/20 13:52:00 EST, Height, 127, kg, 02/03/20 14:39:00 EDT, Dry Weight Start Date: 06/18/20 Stop Date: 07/30/20 Status: Ordered NuLYTELY with Flavor Packs oral powder for reconstitution See Instructions, Drink 240mL every 15-20 minutes until first half is gone. Repeat 6 hours prior toprocedure., # 4,000 mL, 0 Refills, Maintenance, 06/28/20 17:09:00 EST, [facility] #[id number],Partial fill upon patient request if the prescript... Start Date: 06/28/20 Status: Ordered oxyCODONE 10 mg oral tablet 1 tablet = 10 mg, By Mouth, Every 8 hours, DX Z79.891 G89.29 M47.816 OK TO FILL LESS THAN PRESCRIBED AMOUNT, # 84 tablet, 0 Refills, Maintenance, 01/25/21 16:57:00 EDT, Tablet, [facility] #[id number], 01/29/21, 165, cm, 01/11/21 14:05:00 EDT, He... Start Date: 01/25/21 Stop Date: 02/22/21 Status: Ordered penicillin V potassium 250 mg oral tablet 1 tablet = 250 mg, By Mouth, 2 times a day, Cellulitis prophylaxis, # 60 tablet, 11 Refills, Maintenance, 10/30/20 12:09:00 EDT, [facility] #[id number], 165, cm, 10/19/20 8:59:00 EDT, Height, 127, kg, 02/03/20 14:39:00 EDT, Dry Weight Start Date: 10/30/20 Status: Ordered predniSONE 5 mg oral tablet 1 tablet = 5 mg, By Mouth, Daily, # 30 tablet, 0 Refills, Maintenance, 01/11/21 14:20:00 EDT, Tablet, [facility] #[id number], Partial fill upon patient request if the [...] 5 Refills, Maintenance, 04/30/20 15:13:00 EDT, Tablet, [facility] #[id number], 165, cm, 04/30/20 14:30:00 EDT, Height, 127, kg, 02/03/20 14:39:00 EDT, Dry Weight Start Date: 04/30/20 Status: Ordered rosuvastatin 10 mg oral tablet 1 tablet = 10 mg, By Mouth, Daily, # 90 tablet, 3 Refills, Maintenance, 05/03/20 16:35:00 EDT, Tablet, [facility] #[id number], d/c rx for capsules, 165, cm, 04/30/20 14:30:00 EDT, Height, 127, kg, 02/03/20 14:39:00 EDT, Dry Weight Start Date: 05/03/20 Status: Ordered Ventolin HFA 108 mcg/inh inhalation aerosol with adapter 2 puffs, Inhalation, Every 4 hours, PRN Wheezing/Shortness of Breath, # 1 each, 5 Refills, Soft Stop, 11/08/20 8:46:00 EDT, [facility] #[id number], 165, cm, 10/19/20 8:59:00 EDT, Height, 127, kg, 02/03/20 14:39:00 EDT, Dry Weight Start Date: 11/08/20 Status: Ordered warfarin 2.5 mg oral tablet See Instructions, take 2.5mg sun sat subjet to change based on INR per MD, # 90 each, 3 Refills, Maintenance, 02/11/21 10:38:00 EDT, Tablet, [facility] #[id number], PLEASE GIVE THIS IN COMBINATION WITH 5MG TABLETS;, 165, cm, 01/11/21... Start Date: 02/11/21 Status: Ordered warfarin 5 mg oral tablet 1 tablet = 5 mg, By Mouth, Daily, dosing subject to change pending inr lab values TAKE thu,# 90 tablet, 11 Refills, Maintenance, 02/11/21 10:42:00 EDT, Tablet, [facility] #[id number], PLEASE GIVE BOTH 5MG TABLETS AND 2.5MG [...]
--- OUTSIDE RECORDS SUMMARY | 2024-01-02 21:28 | XMS_ITS | Continuity of Care Document ---
Author Organization [facility] Robin Jane Nolberto lt Address [address] [place] [address]- Care Team Providers Care Time Clock Inspector Name Role Phone Krishan GRIDER, Eulogio Molina Primary Care Physician [facility] 07[facility]22 - 08/23/22 [facility] Robin Bolañosley Adult [address] [place] [address]- Allergies, Adverse Reactions, Alerts Substance Reaction Severity [...] vaccine, inactivated 05/10/07 Jarrett rded SARS-CoV-2 mRNA (pviovwv-jcan-xmmoy) vax 08/30/21 Recorded SARS-CoV-2 (COVID-19) mRNA BNT-162b2 vac 01/02/21 Recorded SARS-CoV-2 (COVID-19) mRNA BNT-162b2 vac 12/02/20 Recorded Fluvirin (oldterm) 8 03/22/15 Given Fluzone Preservative-Free (oldterm) 9 03/12/12 Giv en pneumococcal 23-valent vaccine 10/08/11 Given tetanus/diphtheria/pertussis, acel(Tdap) 09/08/11 Given tetanus/diphtheria/pertussis, acel(Tdap) 12/17/06 Recorded influ virus vac, H1N1, inactive(oldterm) 10 05/08/11 Given hepatitis B adult vaccine 06/14/02 Recorded 1Result Comment: [id number] 2Result Comment: [id number] 3Result Comment: [id number] 4Result Comment: [id number] 5Result Comment: [07/08/2017] [id number] 6Admin Note: [facility] 7Admin Note: [facility] [...] Refills, Maintenance, 04/28/22 13:11:00 EDT, [facility], 17, INHALE 2 PUFFS BY MOUTH [...] 08/18/22 9:30:00 EST, [facility], 160, cm, 07/18/22 11:39:00 EST, Height, 98.8, kg, 07/17/22 8:58... Start Date: 08/18/22 Status: Ordered colchicine 0.6 mg oral tablet 0.6 mg, 1, tablet, By Mouth, Daily, # 30 tablet, Refills 11, Tot. Refills 11, Maintenance, 227:00:00 EDT, [facility], Partial fill upon patient request if the prescription is for a schedule II opioid dr... Start Date: 10/30/21 Status: Ordered docusate sodium 100 mg oral capsule 100 mg, 1, capsule, By Mouth, 2 times a day, hold for loose stool, # 60 capsule, Refills 0, Tot. Refills 0, Maintenance, 01/11/22 7:25:00 EDT, Route to Pharmacy Electronically, [facility], Partial fill upon patient request if the prescri... Start Date: 01/11/22 Stop Date: 02/10/22 Status: Ordered duloxetine 20 mg oral enteric coated capsule 2 capsule = 40 mg, By Mouth, Daily at bedtime, # 60 capsule, 11 Refills, Maintenance, 06/25/21 12:00:00 EST, Capsule, [facility], Partial fill upon patient [...] 07/17/22 17:07:00 EST, Route to Pharmacy Electronically, [facility], 160, cm, 07/17/22 12:03:00 EST, Height, [...] 5 Refills, Maintenance, 07/29/22 6:50:00 EST, Tablet, [facility], Partial fill upon patient [...] tablet, 5 Refills, Maintenance, 07/24/22 23:41:00 EST, [facility], 160, cm, 07/18/22 11:39:00 EST, Height, [...] Gm, 5 Refills, Maintenance, 07/17/22 11:09:00 EST, [facility], 160, cm, 07/17/22 8:49:00 EST, Height, 98.8, kg, 07/17/22 8:58:00 EST, Dry Weight Start Date: 07/17/22 Status: Ordered Symbicort 80mcg/4.5mcg Inhaler See Instructions, INHALE 2 PUFFS BY MOUTH TWICE A DAY RINSE MOUTH AND THROAT AFTER USE, # 10.2 Gm, Refills 5, Maintenance, 07/30/22 21:16:00 EST, Instructions Replace Required Details, Route to Pharmacy Electronically, [id number]... 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 Confirmed Active [...] Team Personnel Name: Sandra Wills NP Position: [facility] PCO Associate Professional Member Role: Primary Care Nurse Address: Address: [address] [place] [address] [place] [address]- Name: Marley Alejo RN Position: [facility] RN Member Role: Primary Care Nurse Name: Eulogio Nickerson MD Position: [facility] Primary Care Physician Member Role: PCP Address: Address: [address] [place] [address]- [place] Name: Alma Delia Fonseca PharmD Position: [facility] Associate Professional Member Role: Lifetime Consulting Provider Address: Address: [address] [place] [address]- [place] Name: Yolis Mattson RN Position: [facility] RN Member Role: Primary Care Nurse Name: Priscila Garzon RN Position: [facility] RN Member Role: Primary Care Nurse Name: Renea Mart RN Position: [facility] RN Member Role: Primary Care Nurse Care Team Related Persons Name: FAUZIA JANSEN Address: home [address] [place] [address] Name: AURELIA SHETH Address: [address] [place] [address] Name: BRE OSORIO Address: home [address] [place] [address]
--- OUTSIDE RECORDS SUMMARY | 2024-01-02 21:28 | XMS_ITS | Continuity of Care Document ---
Author Organization [facility] Buck Nolberto Address [address] [place] [address]- Care Team Providers Care Custom Wood Stair Builder Name Role Phone Krishan GRIDER, Eulogio Molina Primary Care Physician [facility] - [facility]06[facility]22 [facility] Robin Bolañosley Adult [address] [place] [address]- Allergies, Adverse Reactions, Alerts Substance Reaction Severity Status Adhesive Bandage Active Dust copd exac/sinus congestion A ctive Immunizations Given and Recorded Vaccine Date Status Refusal Reason SARS-CoV-2 mRNA (hblulop-ijzb-btsms) vax 08/30/21 Recorded influenza virus vaccine, inactivated [...] B adult vaccine 06/14/02 Recorded 1Result Comment: [id number] 2Result Comment: [id number] 3Result Comment: [id number] 4Result Comment: [07/08/2017] [id number] 5Admin Note: [facility] 6Admin Note: [facility] [...] 8.5 Gm, 5 Refills, 05/29/21 17:13:00 EDT, [facility] #[id number], 17, INHALE 2 PUFFS BY MOUTH EVERY [...] 0 Refills, Maintenance, 01/11/22 7:25:00 EDT, Capsule, [facility], Partial fill upon [...] [facility], 159, cm, 01/11/22 15:15:00 EDT, Height, 98.8, k... Start Date: 02/07/22 Status: Ordered colchicine 0.6 mg oral tablet 0.6 mg, 1, tablet, By Mouth, Daily, # 30 tablet, Refills 11, Tot. Refills 11, Maintenance, 227:00:00 EDT, [facility], [facility] [...] 01/11/22 7:25:00 EDT, Route to Pharmacy Electronically, [facility], Partial fill upon patient request [...] Details, [facility], 165, cm, 06/25/21 11:35:00 EST, [...] 12/11/21 13:41:00 EDT, Route to Pharmacy Electronically, [facility], Partial fill upon patient requestif the [...] # 60 tablet, 6 Refills, [facility], 165, cm, 11/08/21 10:02:00 EDT, Height, 127, kg, 02/03/20 14:39:00 EDT, Dry Weight Start Date: 11/15/21 Status: Ordered rOPINIRole 0.5 mg oral tablet 1 tablet, By Mouth, 3 times a day, # 90 tablet, 5 Refills, 03/07/22 6:14:00 EDT, [facility], 159, cm, 01/11/22 15:15:00 EDT, Height, 98.8, kg, 01/10/22 9:12:00 EDT, Dry Weight Start Date: 03/07/22 Status: Ordered rosuvastatin 10 mg oral tablet See Instructions, TAKE 1 TABLET BY MOUTH DAILY, # 90 tablet, 1 Refills, Maintenance, 04/04/22 11:35:00 EDT, [facility], 159, cm, 01/11/22 15:15:00 EDT, [...] Replace Required Details, Route to Pharmacy Electronically, [id number], [facility], 159, cm, 01/11/22 15:15:00 EDT... Start Date: 02/13/22 Status: Ordered warfarin 1 mg oral tablet See Instructions, Take 1-10 tablets By Mouth Daily as directed by THOM, # 150 tablet, 0 Refills, Maintenance, 01/11/22 7:24:00 EDT, Tablet, [facility], Partial fill [...] Personnel Name: Krishan GRIDER, Eulogio Molina Address: [address] [place] [id number]
--- OUTSIDE RECORDS SUMMARY | 2024-01-02 21:28 | XMS_ITS | Continuity of Care Document ---
Author Organization [facility] Robin Jane Nolberto Address [address] [place] [address]- Care Team Providers Care Lead Java Software Engineer Name Role Phone Kyle Ahumada DO Primary Care Physician [facility] 03[facility]23 - 04/08/23 [facility] Robin Bolañosley Adult [address] [place] [address]- Allergies, Adverse Reactions, Alerts Substance Reaction Severity [...] vaccine, inactivated 05/10/07 Jarrett rded SARS-CoV-2 mRNA (opjtmpf-shla-nzlbp) vax 08/30/21 Recorded SARS-CoV-2 (COVID-19) mRNA BNT-162b2 vac 01/02/21 Recorded SARS-CoV-2 (COVID-19) mRNA BNT-162b2 vac 12/02/20 Recorded Fluvirin (oldterm) 8 03/22/15 Given Fluzone Preservative-Free (oldterm) 9 03/12/12 Giv en pneumococcal 23-valent vaccine 10/08/11 Given tetanus/diphtheria/pertussis, acel(Tdap) 09/08/11 Given tetanus/diphtheria/pertussis, acel(Tdap) 12/17/06 Recorded influ virus vac, H1N1, inactive(oldterm) 10 05/08/11 Given hepatitis B adult vaccine 06/14/02 Recorded 1Result Comment: [id number] 2Result Comment: [id number] 3Result Comment: [id number] 4Result Comment: [id number] 5Result Comment: [07/08/2017] [id number] 6Admin Note: [facility] 7Admin Note: [facility] 04-08 8Admin Note: Given at [facility] 9Admin Note: 03-11-12 GIVEN AT [facility] 10Admin Note: rcvd elsewhere Medications acetaminophen 325 mg oral tablet 650 mg, 2, tablet, By Mouth, Every 6 hours, PRN, # 100 tablet, Refills 1, Tot. Refills 1, Maintenance, Pain , Moderate, 03/13/23 16:59:00 EDT, Route to Pharmacy Electronically, [facility], Partial fill upon patient request if the prescription... Start Date: 03/13/23 Status: Ordered Albuterol (Eqv-ProAir HFA) 90 mcg/inh inhalation aerosol See Instructions, INHALE 2 PUFFS BY MOUTH EVERY FOUR HOURS NEEDED FOR WHEEZING OR SHORTNESS OF BREATH, # 8.5 Gm, 5 Refills, Maintenance, 03/13/23 9:55:00 [facility]T, [facility], 30, INHALE 2 PUFFS BY MOUTH [...] EDT, [facility], 160, cm, 03/02/23 9:56:00 EDT, Height, 98.8, k... Start Date: 03/12/23 Status: Ordered cloNIDine 0.1 mg oral tablet 0.1 mg, 1, tablet, By Mouth, 2 times a day, PRN, # 60 tablet, Refills 2, Tot. Refills 2, Maintenance, Anxiety, 03/12/23 16:38:00 EDT, Route to Pharmacy Electronically, [facility], Partial fill upon patient request if the prescription is for a... Start Date: 03/12/23 Status: Ordered cyclobenzaprine 5 mg oral tablet 1 tablet = 5 mg, By Mouth, 3 times a day, PRN Spasm, can increase to 2 three time a day if needed, # 90 tablet, 2 Refills, Maintenance, 04/02/23 12:59:00 EDT, Tablet, [facility], Partial fillupon patient request if the prescription is for a s... Start Date: 04/02/23 Status: Ordered DilTIAZem (Eqv-Dilacor XR) 240 mg/24 hours oral capsule, extended release 1 capsule = 240 mg, By Mouth, Daily, # 90 capsule, 3 Refills, Maintenance, 03/13/23 17:04:00 EDT, CD Capsule, [facility], Partial fill upon patient request if the prescription is for a schedule II opioid drug., 160, cm, 03/02/23 9:56:00 EDT, H... Start Date: 03/13/23 Status: Ordered docusate sodium 100 mg oral capsule 100 mg, 1, capsule, By Mouth, 2 times a day, hold for loose stool, # 180 capsule, Refills 3, Tot. Refills 3, Maintenance, 03/13/23 16:56:00 EDT, Route to Pharmacy Electronically, [facility], Partial fill upon patient request if the prescriptio... Start Date: 03/13/23 Stop Date: 04/12/23 Status: Ordered duloxetine 20 mg oral enteric coated capsule 2 capsule = 40 mg, By Mouth, Daily at bedtime, # 60 capsule, 11 Refills, Maintenance, 06/25/21 12:00:00 EST, Capsule, [facility], Partial fill upon patient request if [...] 03/02/23 18:12:00 EDT, Route to Pharmacy Electronically, [facility], Partial fill upon patient request if the prescription is for a schedule II opioid drug... Start Date: 03/02/23 Status: Ordered ipratropium nasal 21 mcg/inh spray 2 sprays = 42 mcg, Nares, Both, 2 times a day, # 30 mL, 5 Refills, Maintenance, 03/13/23 16:58:00 EDT, [place], [facility], Partial fill upon patient request if [...] 02/07/23 18:12:00 EDT, Route to Pharmacy Electronically, [facility], 160, cm, 12/16/22 10:46:00 EDT, Height, [...] 3 Refills, Maintenance, 03/13/23 17:03:00 EDT, Patch, [facility], Partial fill upon patient request if the prescription is for a schedule II opioid drug., 1 patch Topically Daily, 160, cm, 03/02/23 9:56:0... Start Date: 03/13/23 Status: Ordered penicillin V potassium 250 mg oral tablet 1 tablet = 250 mg, By Mouth, 2 times a day, CELLULITIS PROPHYLAXIS, # 60 tablet, 5 Refills, Maintenance, 11/06/22 17:25:00 EDT, Tablet, [facility], Partial fill upon patient request if the prescription is for a schedule II opioid drug., 160, c... Start Date: 11/06/22 Stop Date: 05/05/23 Status: Ordered rOPINIRole 0.5 mg oral tablet 1 tablet, By Mouth, 3 times a day, ^1R1,1R3,1R4., # 90 tablet, 5 Refills, Maintenance, 12/24/22 14:21:00 EDT, [facility], [facility], cm, 12/16/22 10:46:00 EDT, Height, 98.8, kg, 07/17/22 8:58:00 EST, Dry Weight Start Date: 12/24/22 Status: Ordered rosuvastatin 10 mg oral tablet 1 tablet, By Mouth, Daily, ^1R1., # 30 tablet, 5 Refills, Maintenance, 02/07/23 18:12:00 EDT, [facility], 160, cm, 12/16/22 10:46:00 EDT, Height, 98.8, kg, 07/17/22 8:58:00 EST, Dry Weight Start Date: 02/07/23 Status: Ordered Symbicort 80mcg/4.5mcg Inhaler See Instructions, INHALE 2 PUFFS BY MOUTH TWICE A DAY RINSE MOUTH AND THROAT AFTER USE, # 10.2 Gm, Refills 5, Tot. Refills 5, Maintenance, 03/13/23 10:13:00 EDT, Instructions Replace Required Details, Route to Pharmacy Electronically, NCPDP_[id number]... 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 RN Member Role: Primary Care Nurse Name: Alma Delia Fonseca PharmD Position: [facility] Associate Professional Member Role: Lifetime Consulting Provider Address: Address: [address] [place] [address]- [place] Name: Yolis Mattson RN Position: [facility] RN Member Role: Primary Care Nurse Name: Priscila Garzon RN Position: [facility] RN Member Role: Primary Care Nurse Name: Kyle Ahumada DO Position: [facility] Physician - Primary Care Member Role: PCP Address: Address: [address] [place] [address]- [place] Name: Renea Mart RN Position: [facility] RN Member Role: Primary Care Nurse Care Team Related Persons Name: FAUZIA JANSEN Address: home [address] [place] [address] Name: AURELIA SHETH Address: [address] [place] [address] Name: BRE OSORIO Address: [address] [place] [address]
--- OUTSIDE RECORDS SUMMARY | 2024-01-02 21:28 | XMS_ITS | Continuity of Care Document ---
Author Organization [facility] Nolberto Address [address] [place] [address]- Care Team Providers Care Piano Sounding Board Matcher Name Role Phone Eulogio Nickerson MD Primary Care Physician [facility] Date[facility]): 11/18/21 - 02/23/22 [facility] Adult [address] [place] [address]- Attending Physician: Eulogio Nickerson MD Allergies, Adverse Reactions, Alerts Substance Reaction Severity Status Adhesive Bandage Active Dust copd exac/sinus congestion A ctive Immunizations Given and Recorded Vaccine Date Status Refusal Reason SARS-CoV-2 mRNA (uoirjtm-nviu-epryc) vax 08/30/21 Recorded influenza virus vaccine, inactivated [...] B adult vaccine 06/14/02 Recorded 1Result Comment: [id number] 2Result Comment: [id number] 3Result Comment: [id number] 4Result Comment: [07/08/2017] [id number] 5Admin Note: [facility] 6Admin Note: [facility] [...] 8.5 Gm, 5 Refills, 05/29/21 17:13:00 EDT, [facility] #[id number], 17, INHALE 2 PUFFS BY MOUTH EVERY [...] 0 Refills, Maintenance, 01/11/22 7:25:00 EDT, Capsule, [facility], Partial fill upon [...] Details, Route to Pharmacy Electronically, [facility], 159, cm, 01/11/22 15:15:00 EDT, Height, 98.8, k... Start Date: 02/07/22 Status: Ordered colchicine 0.6 mg oral tablet 0.6 mg, 1, tablet, By Mouth, Daily, # 30 tablet, Refills 11, Tot. Refills 11, Maintenance, :00:00 EDT, Route to Pharmacy Electronically, [facility], Partial fill upon patient request if [...] 01/11/22 7:25:00 EDT, Route to Pharmacy Electronically, [facility], Partial fill upon patient request if the prescri... Start Date: 01/11/22 Stop Date: 02/10/22 Status: Ordered duloxetine 20 mg oral enteric coated capsule 2 capsule = 40 mg, By Mouth, Daily at bedtime, # 60 capsule, 11 Refills, Maintenance, 06/25/21 12:00:00 EST, Capsule, [facility], Partial fill upon patient request if [...] Details, Route to Pharmacy Electronically, [facility], 165, cm, 06/25/21 11:35:00 EST, Height, [...] 12/11/21 13:41:00 EDT, Route to Pharmacy Electronically, [facility], Partial fill upon patient requestif the [...] 03/05/22 16:36:00 EDT, 12/03/21 16:35:00 EDT, Gum, [facility] #[id number], Partial fill uponpatient request if the prescription [...] # 60 tablet, 6 Refills, [facility], 165, cm, 11/08/21 10:02:00 EDT, Height, 127, kg, 02/03/20 14:39:00 EDT, Dry Weight Start Date: 11/15/21 Status: Ordered rOPINIRole 0.5 mg oral tablet 1 tablet, By Mouth, 3 times a day, # 90 tablet, 5 Refills, 11/08/21 9:01:00 EDT, [facility], 165, cm, 11/04/21 8:42:00 EDT, Height, 127, kg, 02/03/20 14:39:00 EDT, Dry Weight Start Date: 11/08/21 Status: Ordered rosuvastatin 10 mg oral tablet See Instructions, TAKE 1 TABLET BY MOUTH DAILY, # 90 tablet, 1 Refills, Maintenance, 10/18/21 21:30:00 EDT, [facility], 165, cm, 09/04/21 14:01:00 EST, Height, [...] Replace Required Details, Route to Pharmacy Electronically, [facility]DP[facility][id number], [facility], 159, cm, 01/11/22 15:15:00 EDT... Start Date: 02/13/22 Status: Ordered warfarin 1 mg oral tablet See Instructions, Take 1-10 tablets By Mouth Daily as directed by THOM, # 150 tablet, 0 Refills, Maintenance, 01/11/22 7:24:00 EDT, Tablet, [facility], Partial fill upon patient requestif [...]
--- OUTSIDE RECORDS SUMMARY | 2024-01-02 21:28 | XMS_ITS | Continuity of Care Document ---
Author Organization [facility] Robin Jane Nolberto Address [address] [place] [address]- Care Team Providers Care Global Supply Chain Director Name Role Phone Fuentes Garcia MD Primary Care Physician [phone] [facility]): 09/26[facility]20 - 10/26/20 [facility] Robin Bolañosley Adult [address] [place] [address]- Allergies, Adverse Reactions, Alerts Substance Reaction Severity [...] H1N1, inactive(oldterm) 8 05/08/11 Given 1Result Comment: [id number] 2Result Comment: [id number] 3Result Comment: [07/08/2017] [id number] 4Admin Note: [facility] 5Admin Note: [facility] [...] 5 Refills, Maintenance, 07/03/20 9:16:00 EST, Cream, [facility] #[id number], Partial fill upon patient request if the [...] 06/04/20 12:56:00 EST, Route to Pharmacy Electronically, [facility] #[id number], please schedule appt for further refills, 165, cm, 05/16/20 14:15:00 EDT, Hei... Start Date: 06/04/20 Status: Ordered Claritin 10 mg oral tablet 10 mg, 1, tablet, By Mouth, Daily, for 90 days, # 90 tablet, Refills 3, Tot. Refills 3, Acute 07/28/21 15:22:00 EST, 08/02/20 15:22:00 EST, Route to Pharmacy Electronically, [facility] #[id number], 165, cm, 07/31/20 14:32:00 EST, Height, 127, kg,... Start Date: 08/02/20 Stop Date: 07/28/21 Status: Ordered colchicine 0.6 mg oral tablet See Instructions, take 1 tablet by mouth once daily if needed for PSEUDOGOUT pain, # 30 tablet, Refills 5, Tot. Refills 5, Soft Stop, 01/05/20 8:41:00 EDT, Instructions Replace Required Details, Route to Pharmacy Electronically, [facility] #... Start Date: 01/05/20 Status: Ordered COVID [...] PMR, history of smoking fax to : [phone], 04... Start Date: 10/26/20 Status: Ordered Disposable [...] Gm, 3 Refills, Maintenance, 06/22/20 14:58:00 EST, [facility] #[id number], 165, cm, 06/07/20 13:52:00 EST, Height, 127, [...] 5 Refills, Maintenance, 10/01/18 10:08:42 EST, [place], 2 sprays Nares, Both 2 times a [...] 08/02/20 16:13:00 EST, Route to Pharmacy Electronically, [facility] #[id number], D/C RX ON FILE FOR ABRAM, 165, [...] tablet, 1 Refills, Maintenance, 07/12/20 13:56:00 EST, [facility] #[id number], Partial fill upon patient request if the prescription is for a schedule II opioid drug., 165, cm, 07/11/20 15:24:00 EST,... Start Date: 07/12/20 Stop Date: 07/05/21 Status: Ordered metoprolol 25 mg oral tablet 25 mg, 1, tablet, By Mouth, 2 times a day, # 60 tablet, Refills 5, Tot. Refills 5, Maintenance, 09/22/20 13:59:00 EST, Route to Pharmacy Electronically, [facility] #[id number], 165, cm, 07/31/2113:32:00 EST, Height, 127, kg, [...] 0 Refills, Maintenance, 06/18/20 16:57:00 EST, Patch, [facility] #[id number], Partial fill upon patient request, 165, cm, 06/07/20 13:52:00 EST, Height, 127, kg, 02/03/20 14:39:00 EDT, Dry Weight Start Date: 06/18/20 Stop Date: 07/30/20 Status: Ordered NuLYTELY with Flavor Packs oral powder for reconstitution See Instructions, Drink 240mL every 15-20 minutes until first half is gone. Repeat 6 hours prior toprocedure., # 4,000 mL, 0 Refills, Maintenance, 06/28/20 17:09:00 EST, [facility] #[id number],Partial fill upon patient request if the prescript... Start Date: 06/28/20 Status: Ordered oxyCODONE 10 mg oral tablet 1 tablet = 10 mg, By Mouth, Every 8 hours, DX Z79.891 G89.29 M47.816 OK TO FILL LESS THAN PRESCRIBED AMOUNT, # 84 tablet, 0 Refills, Maintenance, 10/08/20 16:54:00 EDT, Tablet, [facility] #[id number], 10/09/20, 165, cm, 07/31/20 14:32:00 EST, He... [...] 0 Refills, Maintenance, 10/12/20 9:55:00 EDT, Tablet, [facility] #[id number], Partial fill upon patient request if the [...] 5 Refills, Maintenance, 04/30/20 15:13:00 EDT, Tablet, [facility] #[id number], 165, cm, 04/30/20 14:30:00 EDT, Height, 127, kg, 02/03/20 14:39:00 EDT, Dry Weight Start Date: 04/30/20 Status: Ordered rosuvastatin 10 mg oral tablet 1 tablet = 10 mg, By Mouth, Daily, # 90 tablet, 3 Refills, Maintenance, 05/03/20 16:35:00 EDT, Tablet, [facility] #[id number], d/c rx for capsules, 165, cm, 04/30/20 14:30:00 EDT, Height, 127, kg, 02/03/20 14:39:00 EDT, Dry Weight Start Date: 05/03/20 Status: Ordered Ventolin HFA 108 mcg/inh inhalation aerosol with adapter 2 puffs, Inhalation, Every 4 hours, PRN Wheezing/Shortness of Breath, # 1 each, 11 Refills, Soft Stop, 01/19/20 11:46:00 EDT, [facility] #[id number], 165, cm, 01/16/20 6:17:00 EDT, Height, 128.1, kg, 01/16/20 6:17:00 EDT, Dry Weight Start Date: 01/19/20 Status: Ordered warfarin 5 mg oral tablet 1 tablet = 5 mg, By Mouth, Daily, dosing subject to change pending inr lab values, # 30 tablet, 11 Refills, Maintenance, 08/31/20 15:36:00 EST, Tablet, [facility] #[id number], 165, cm, 07/31/20 14:32:00 EST, Height, 127, [...] long-term use(Confirmed) Active Gastric banding status(Confirmed) Active 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
--- OUTSIDE RECORDS SUMMARY | 2024-01-02 21:28 | XMS_ITS | Continuity of Care Document ---
Author Organization [facility] Robin Jane Nolberto lt Address [address] [place] [address]- Care Team Providers Care Cat Cracker Operator Name Role Phone Fuentes Garcia MD Primary Care Physician [phone] [facility] 10[facility]10[facility]20 - 11/09/20 [facility] Robin Bolañosley Adult [address] [place] [address]- Allergies, Adverse Reactions, Alerts Substance Reaction Severity [...] H1N1, inactive(oldterm) 8 05/08/11 Given 1Result Comment: [id number] 2Result Comment: [id number] 3Result Comment: [07/08/2017] [id number] 4Admin Note: [facility] 5Admin Note: [facility] [...] 11 Refills, Maintenance, 10/31/20 14:14:00 EDT, Cream, [facility] #[id number], Partial fill upon patient request if the [...] 06/04/20 12:56:00 EST, Route to Pharmacy Electronically, [facility] #[id number], please schedule appt for further refills, 165, cm, 05/16/20 14:15:00 EDT, Hei... Start Date: 06/04/20 Status: Ordered Claritin 10 mg oral tablet 10 mg, 1, tablet, By Mouth, Daily, for 90 days, # 90 tablet, Refills 3, Tot. Refills 3, Acute 07/28/21 15:22:00 EST, 08/02/20 15:22:00 EST, Route to Pharmacy Electronically, [facility] #[id number], 165, cm, 07/31/20 14:32:00 EST, Height, 127, [...] PMR, history of smoking fax to : [phone], 04... Start Date: 10/26/20 Status: Ordered Disposable [...] Gm, 3 Refills, Maintenance, 06/22/20 14:58:00 EST, [facility] #[id number], 165, cm, 06/07/20 13:52:00 EST, Height, 127, [...] mL, 5 Refills, Maintenance, 10/01/18 10:08:42 EST, [place], 2 sprays Nares, Both 2 times a [...] 08/02/20 16:13:00 EST, Route to Pharmacy Electronically, [facility] #[id number], D/C RX ON FILE FOR CLARITAN, 165, [...] tablet, 1 Refills, Maintenance, 07/12/20 13:56:00 EST, [facility] #[id number], Partial fill upon patient request if the prescription is for a schedule II opioid drug., 165, cm, 07/11/20 15:24:00 EST,... Start Date: 07/12/20 Stop Date: 07/05/21 Status: Ordered metoprolol 25 mg oral tablet 25 mg, 1, tablet, By Mouth, 2 times a day, # 60 tablet, Refills 5, Tot. Refills 5, Maintenance, 09/22/20 13:59:00 EST, Route to Pharmacy Electronically, [facility] #[id number], 165, cm, 07/31/2113:32:00 EST, Height, 127, kg, 02/03/20 14:39:00 ED... Start Date: 09/22/20 Status: Ordered Mitigare 0.6 mg oral capsule 1 capsule = 0.6 mg, By Mouth, Daily, # 30 capsule, 11 Refills, Maintenance, 10/31/20 14:29:00 EDT, [facility] #[id number], D/C RX ON FILE FOR COLCHICINE NOT [...] 0 Refills, Maintenance, 06/18/20 16:57:00 EST, Patch, [facility] #[id number], Partial fill upon patient request, 165, cm, 06/07/20 13:52:00 EST, Height, 127, kg, 02/03/20 14:39:00 EDT, Dry Weight Start Date: 06/18/20 Stop Date: 07/30/20 Status: Ordered NuLYTELY with Flavor Packs oral powder for reconstitution See Instructions, Drink 240mL every 15-20 minutes until first half is gone. Repeat 6 hours prior toprocedure., # 4,000 mL, 0 Refills, Maintenance, 06/28/20 17:09:00 EST, [facility] #[id number],Partial fill upon patient request if the prescript... Start Date: 06/28/20 Status: Ordered oxyCODONE 10 mg oral tablet 1 tablet = 10 mg, By Mouth, Every 8 hours, DX Z79.891 G89.29 M47.816 OK TO FILL LESS THAN PRESCRIBED AMOUNT, # 84 tablet, 0 Refills, Maintenance, 11/05/20 17:14:00 EDT, Tablet, [facility] #[id number], 11/06/20, 165, cm, 10/19/20 8:59:00 EDT, Hei... Start Date: 11/05/20 Stop Date: 12/03/20 Status: Ordered penicillin V potassium 250 mg oral tablet 1 tablet = 250 mg, By Mouth, 2 times a day, Cellulitis prophylaxis, # 60 tablet, 11 Refills, Maintenance, 10/30/20 12:09:00 EDT, [facility] #[id number], 165, cm, 10/19/20 8:59:00 EDT, Height, 127, kg, 02/03/20 14:39:00 EDT, Dry Weight Start Date: 10/30/20 Status: Ordered predniSONE 10 mg oral tablet 1 tablet = 10 mg, By Mouth, Daily, # 30 tablet, 0 Refills, Maintenance, 10/12/20 9:55:00 EDT, Tablet, [facility] #[id number], Partial fill upon patient request if the [...] 5 Refills, Maintenance, 04/30/20 15:13:00 EDT, Tablet, [facility] #[id number], 165, cm, 04/30/20 14:30:00 EDT, Height, 127, kg, 02/03/20 14:39:00 EDT, Dry Weight Start Date: 04/30/20 Status: Ordered rosuvastatin 10 mg oral tablet 1 tablet = 10 mg, By Mouth, Daily, # 90 tablet, 3 Refills, Maintenance, 05/03/20 16:35:00 EDT, Tablet, [facility] #[id number], d/c rx for capsules, 165, cm, 04/30/20 14:30:00 EDT, Height, 127, kg, 02/03/20 14:39:00 EDT, Dry Weight Start Date: 05/03/20 Status: Ordered Ventolin HFA 108 mcg/inh inhalation aerosol with adapter 2 puffs, Inhalation, Every 4 hours, PRN Wheezing/Shortness of Breath, # 1 each, 5 Refills, Soft Stop, 11/08/20 8:46:00 EDT, [facility] #[id number], 165, cm, 10/19/20 8:59:00 EDT, Height, 127, kg, 02/03/20 14:39:00 EDT, Dry Weight Start Date: 11/08/20 Status: Ordered warfarin 5 mg oral tablet 1 tablet = 5 mg, By Mouth, Daily, dosing subject to change pending inr lab values, # 30 tablet, 11 Refills, Maintenance, 08/31/20 15:36:00 EST, Tablet, [facility] #[id number], 165, cm, 07/31/20 14:32:00 EST, Height, 127, [...]
--- OUTSIDE RECORDS SUMMARY | 2024-01-02 21:28 | XMS_ITS | Continuity of Care Document ---
Author Organization [facility] Nolberto Address [address] [place] [address]- Care Team Providers Care Fire Pilot Name Role Phone Krishan GRIDER, Eulogio Molina Primary Care Physician [facility] Date[facility]s): 01[facility]17[facility]22 - 02/16/22 [facility] Robin Bolañosley Adult [address] [place] [address]- Allergies, Adverse Reactions, Alerts Substance Reaction Severity Status Adhesive Bandage Active Dust copd exac/sinus congestion A ctive Immunizations Given and Recorded Vaccine Date Status Refusal Reason SARS-CoV-2 mRNA (wgpvihk-oyab-trdso) vax 08/30/21 Recorded influenza virus vaccine, inactivated [...] B adult vaccine 06/14/02 Recorded 1Result Comment: [id number] 2Result Comment: [id number] 3Result Comment: [id number] 4Result Comment: [07/08/2017] 10412-115-10 5Admin Note: [facility] 6Admin Note: [facility] [...] 8.5 Gm, 5 Refills, 05/29/21 17:13:00 EDT, [id number], 17, INHALE 2 PUFFS BY MOUTH EVERY [...] 0 Refills, Maintenance, 01/11/22 7:25:00 EDT, Capsule, [facility], Partial fill upon patient [...] Pharmacy Electronically, [facility], 159, cm, 01/11/22 15:15:00 EDT, Height, 98.8, k... Start Date: 02/07/22 Status: Ordered colchicine 0.6 mg oral tablet 0.6 mg, 1, tablet, By Mouth, Daily, # 30 tablet, Refills 11, Tot. Refills 11, Maintenance, 227:00:00 EDT, [facility] to Pharmacy Electronically, [facility] [...] 01/11/22 7:25:00 EDT, Route to Pharmacy Electronically, [facility], Partial fill upon patient request if the prescri... Start Date: 01/11/22 Stop Date: 02/10/22 Status: Ordered duloxetine 20 mg oral enteric coated capsule 2 capsule = 40 mg, By Mouth, Daily at bedtime, # 60 capsule, 11 Refills, Maintenance, 06/25/21 12:00:00 EST, Capsule, [facility], Partial fill [...] 12/11/21 13:41:00 EDT, [facility], Partial fill upon patient requestif the [...] 03/05/22 16:36:00 EDT, 12/03/21 16:35:00 EDT, Gum, [id number], Partial fill uponpatient request if the prescription [...] CELLULITIS PROPHYLAXIS., # 60 tablet, 6 Refills, [facility], 165, cm, 11/08/21 10:02:00 EDT, Height, 127, kg, 02/03/20 14:39:00 EDT, Dry Weight Start Date: 11/15/21 Status: Ordered rOPINIRole 0.5 mg oral tablet 1 tablet, By Mouth, 3 times a day, # 90 tablet, 5 Refills, 11/08/21 9:01:00 EDT, [facility], 165, cm, 11/04/21 8:42:00 EDT, Height, 127, kg, 02/03/20 14:39:00 EDT, Dry Weight Start Date: 11/08/21 Status: Ordered rosuvastatin 10 mg oral tablet See Instructions, TAKE 1 TABLET BY MOUTH DAILY, # 90 tablet, 1 Refills, Maintenance, 10/18/21 21:30:00 EDT, [facility], 165, cm, 09/04/21 14:01:00 EST, Height, [...] Replace Required Details, Route to Pharmacy Electronically, NCPDP_[id number], [facility], 159, cm, 01/11/22 15:15:00 EDT... Start Date: 02/13/22 Status: Ordered warfarin 1 mg oral tablet See Instructions, Take 1-10 tablets By Mouth Daily as directed by THOM, # 150 tablet, 0 Refills, Maintenance, 01/11/22 7:24:00 EDT, Tablet, [facility], Partial fill upon patient requestif [...] long-term use(Confirmed) Active Gastric banding status(Confirmed) Active [facility] current use of 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
--- OUTSIDE RECORDS SUMMARY | 2024-01-02 21:28 | XMS_ITS | Continuity of Care Document ---
Author Organization [facility] ter Address [address] [place] [address]- Care Team Providers Care Materials Mgmt Tech Name Role Phone Eulogio Nickerson MD Primary Care Physician [phone] Encounter [facility] Date(s): 07/03/22 - 08/02/[address] [address] Attending Physician: Admtr, Ar8 Admitting Physician: Admtr, [...] vaccine, inactivated 05/10/07 Jarrett rded SARS-CoV-2 mRNA (rjcunpo-bezj-dnqkq) vax 08/30/21 Recorded SARS-CoV-2 (COVID-19) mRNA BNT-162b2 vac 01/02/21 Recorded SARS-CoV-2 (COVID-19) mRNA BNT-162b2 vac 12/02/20 Recorded Fluvirin (oldterm) 8 03/22/15 Given Fluzone Preservative-Free (oldterm) 9 03/12/12 Giv en pneumococcal 23-valent vaccine 10/08/11 Given tetanus/diphtheria/pertussis, acel(Tdap) 09/08/11 Given tetanus/diphtheria/pertussis, acel(Tdap) 12/17/06 Recorded influ virus vac, H1N1, inactive(oldterm) 10 05/08/11 Given hepatitis B adult vaccine 06/14/02 Recorded 1Result Comment: [id number] 2Result Comment: [id number] 3Result Comment: [id number] 4Result Comment: [id number] 5Result Comment: [07/08/2017] 20019-908-85 6Admin Note: [facility] 7Admin Note: [facility] [...] Gm, 4 Refills, Maintenance, 04/28/22 13:11:00 EDT, [facility], 17, INHALE 2 PUFFS BY [...] Maintenance, 227:00:00 EDT, Route to Pharmacy Electronically, [facility], Partial fill upon patient request if the prescription is for a schedule II opioid dr... Start Date: 10/30/21 Status: Ordered docusate sodium 100 mg oral capsule 100 mg, 1, capsule, By Mouth, 2 times a day, hold for loose stool, # 60 capsule, Refills 0, Tot. Refills 0, Maintenance, 01/11/22 7:25:00 EDT, Route to Pharmacy Electronically, [facility], Partial fill upon patient request if the prescri... Start Date: 01/11/22 Stop Date: 02/10/22 Status: Ordered duloxetine 20 mg oral enteric coated capsule 2 capsule = 40 mg, By Mouth, Daily at bedtime, # 60 capsule, 11 Refills, Maintenance, 06/25/21 12:00:00 EST, Capsule, [facility], Partial fill upon patient request [...] 07/17/22 17:07:00 EST, Route to Pharmacy Electronically, [facility], 160, cm, 07/17/22 12:03:00 EST, [...] 5 Refills, Maintenance, 07/29/22 6:50:00 EST, Tablet, [facility], Partial fill upon patient request [...] tablet, 5 Refills, Maintenance, 07/24/22 23:41:00 EST, [facility], 160, cm, 07/18/22 11:39:00 EST, Height, [...] Gm, 5 Refills, Maintenance, 07/17/22 11:09:00 EST, [facility], 160, cm, 07/17/22 8:49:00 EST, Height, 98.8, kg, 07/17/22 8:58:00 EST, Dry Weight Start Date: 07/17/22 Status: Ordered Symbicort 80mcg/4.5mcg Inhaler See Instructions, INHALE 2 PUFFS BY MOUTH TWICE A DAY RINSE MOUTH AND THROAT AFTER USE, # 10.2 Gm, Refills 5, Maintenance, 07/30/22 21:16:00 EST, Instructions Replace Required Details, Route to Pharmacy Electronically, [facility]DP[facility][id number], [facility] 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 current use of opiate analgesic Confirmed Active [...] Team Personnel Name: Sandra Wills NP Position: [facility] PCO Associate Professional Member Role: Primary Care Nurse Address: Address: [address] [place] [address] [place] [address]- Name: Marley Alejo RN Position: [facility] ED RN W/OE and Tasks Member Role: Primary Care Nurse Name: Eulogio Nickerson MD Position: [facility] Primary Care Physician Member Role: PCP Address: Address: [address] [place] [address]- [place] Name: Alma Delia Fonseca PharmD Position: [facility] Associate Professional Member Role: Lifetime Consulting Provider Address: Address: [address] [place] [address] [place] [address]- Name: Yolis Mattson RN Position: S RN Member Role: Primary Care Nurse Name: Priscila Garzon RN Position: [facility] RN Member Role: Primary Care Nurse Name: Renea Mart RN Position: [facility] RN Member Role: Primary Care Nurse Care Team Related Persons Name: FAUZIA JANSEN Address: home [address] [place] [address] Name: AURELIA SHETH Address: home [address] [place] [address] Name: BRE OSORIO Address: home [address] [place] [address]
--- OUTSIDE RECORDS SUMMARY | 2024-01-02 21:28 | XMS_ITS | Continuity of Care Document ---
Author Organization [facility]berto Address [address] [place] [address]- Care Team Providers Care Freelance Writer Name Role Phone Krishan GRIDER, Eulogio Molina Primary Care Physician [phone] [facility]counter [facility] Date(s): 04/08/22 - 05/08/22 [facility] Robin Bolañosley Adult [address] [place] [address]- Allergies, Adverse Reactions, Alerts Substance Reaction Severity [...] vaccine, inactivated 05/10/07 Jarrett rded SARS-CoV-2 mRNA (bkzehhn-vubw-nhskq) vax 08/30/21 Recorded SARS-CoV-2 (COVID-19) mRNA BNT-162b2 vac 01/02/21 Recorded SARS-CoV-2 (COVID-19) mRNA BNT-162b2 vac 12/02/20 Recorded Fluvirin (oldterm) 8 03/22/15 Given Fluzone Preservative-Free (oldterm) 9 03/12/12 Giv en pneumococcal 23-valent vaccine 10/08/11 Given tetanus/diphtheria/pertussis, acel(Tdap) 09/08/11 Given tetanus/diphtheria/pertussis, acel(Tdap) 12/17/06 Recorded influ virus vac, H1N1, inactive(oldterm) 10 05/08/11 Given hepatitis B adult vaccine 06/14/02 Recorded 1Result Comment: [id number] 2Result Comment: [id number] 3Result Comment: [id number] 4Result Comment: [id number] 5Result Comment: [07/08/2017] 66900-515-27 6Admin Note: [facility] 7Admin Note: [facility] [...] Gm, 4 Refills, Maintenance, 04/28/22 13:11:00 EDT, [facility], 17, INHALE 2 PUFFS BY MOUTH EVERY FOUR HOURS NEEDED FOR WHEEZING... Start Date: 04/28/22 Status: Ordered cloNIDine 0.1 mg oral tablet See Instructions, TAKE 1 TABLET BY MOUTH TWICE A DAY NEEDED FOR FOR ANXIETY (VIAL), # 60 tablet,Refills 1, Maintenance, 04/28/22 13:11:00 EDT, Instructions Replace Required Details, Route to Pharmacy Electronically, [facility], 159, cm, 06... Start Date: 04/28/22 Status: Ordered colchicine 0.6 mg oral tablet 0.6 mg, 1, tablet, By Mouth, Daily, # 30 tablet, Refills 11, Tot. Refills 11, Maintenance, 227:00:00 EDT, Route to Pharmacy Electronically, [facility], Partial fill upon patient request [...] 01/11/22 7:25:00 EDT, Route to Pharmacy Electronically, [facility], Partial fill upon patient request if the prescri... Start Date: 01/11/22 Stop Date: 02/10/22 Status: Ordered duloxetine 20 mg oral enteric coated capsule 2 capsule = 40 mg, By Mouth, Daily at bedtime, # 60 capsule, 11 Refills, Maintenance, 06/25/21 12:00:00 EST, [facility], [facility] fill [...] [facility], 165, cm, 06/25/21 11:35:00 EST, Height, 127, kg, 02/03/20 14:39:00 EDT, Dry Weight Start Date: 08/05/21 Status: Ordered penicillin V potassium 250 mg oral tablet 1 tablet, By Mouth, 2 times a day, CELLULITIS PROPHYLAXIS., # 60 tablet, 6 Refills, [facility], 165, cm, 11/08/21 10:02:00 EDT, Height, 127, kg, 02/03/20 14:39:00 EDT, Dry Weight Start Date: 11/15/21 Status: Ordered predniSONE 20 mg oral tablet 1 tablet = 20 mg, By Mouth, 2 times a day, # 10 tablet, 0 Refills, Acute 05/10/22 12:45:00 EDT, 05/05/22 12:40:00 EDT, [facility][id number], Partial fill upon patient request if the prescription is for a schedule II opioid drug., 159, cm, 05/05... Start Date: 05/05/22 Stop Date: 05/10/22 Status: Ordered rOPINIRole 0.5 mg oral tablet 1 tablet, By Mouth, 3 times a day, # 90 tablet, 5 Refills, 03/07/22 6:14:00 EDT, [facility], 159, cm, 01/11/22 15:15:00 EDT, Height, 98.8, kg, 01/10/22 9:12:00 EDT, Dry Weight Start Date: 03/07/22 Status: Ordered rosuvastatin 10 mg oral tablet See Instructions, TAKE 1 TABLET BY MOUTH DAILY, # 90 tablet, 1 Refills, Maintenance, 04/04/22 11:35:00 EDT, [facility], 159, cm, 01/11/22 15:15:00 EDT, Height, 98.8, kg, 01/10/22 9:12:00 EDT,Dry Weight Start Date: 04/04/22 Status: Ordered Symbicort 80mcg/4.5mcg Inhaler See Instructions, INHALE 2 PUFFS BY MOUTH TWICE A DAY RINSE MOUTH AND THROAT AFTER USE, # 10.2 Gm, Refills 5, Instructions Replace Required Details, Route to Pharmacy Electronically, NCPDP_[id number], [facility], 159, cm, 01/11/22 15:15:00 EDT... Start Date: 02/13/22 Status: Ordered warfarin 1 mg oral tablet See Instructions, Take 1-10 tablets By Mouth Daily as directed by THOM, # 150 tablet, 0 Refills, Maintenance, 01/11/22 7:24:00 EDT, Tablet, [facility], Partial fill upon [...] Name: Krishan GRIDER, Eulogio Molina Address: Address: [address] [place] [address]-
--- OUTSIDE RECORDS SUMMARY | 2024-01-02 21:28 | XMS_ITS | Continuity of Care Document ---
Author Organization [facility]to Address [address] [place] [address]- Care Team Providers Care Academic Success Coordinator Name Role Phone Radha GRIDER, Fuentes Kenny Primary Care Physician [facility] Date(s): 05/01/21 - 05/31/21 [facility] [address] [place] [address]- Allergies, Adverse Reactions, Alerts Substance Reaction Severity [...] B adult vaccine 06/14/02 Recorded 1Result Comment: [id number] 2Result Comment: [id number] 3Result Comment: [07/08/2017] [id number] 4Admin Note: [facility] 5Admin Note: [facility] [...] 8.5 Gm, 5 Refills, 05/29/21 17:13:00 EDT, [email or web address][id number], 17, INHALE 2 PUFFS BY MOUTH EVERY [...] 11 Refills, Maintenance, 10/31/20 14:14:00 EDT, Cream, [facility] #[id number], Partial fill upon patient request if the [...] 04/09/21 14:32:00 EDT, Route to Pharmacy Electronically, [facility], 165, cm, 02/28/21 14:22:00 EDT, Height, [...] PMR, history of smoking fax to : [phone], 04... Start Date: 10/26/20 Status: Ordered Disposable [...] Gm, 3 Refills, Maintenance, 06/22/20 14:58:00 EST, [facility] #[id number], 165, cm, 06/07/20 13:52:00 EST, Height, 127, [...] Refills, Maintenance, 05/24/21 16:13:00 EDT, REC Powder, [facility] #[id number], Partial fill upon patient request if the [...] mL, 5 Refills, Maintenance, 10/01/18 10:08:42 EST, [place], 2 sprays Nares, Both 2 times a [...] 08/02/20 16:13:00 EST, Route to Pharmacy Electronically, [facility] #[id number], D/C RX ON FILE FOR ABRAM, 165, [...] tablet, 6Refills, Maintenance, 05/21/21 11:19:00 EDT, Tablet, [facility], Partial fill upon patient request if the prescription is for a schedule II... Start Date: 05/21/21 Status: Ordered methenamine hippurate 1 gm oral tablet 1 tablet = 1 Gm, By Mouth, 2 times a day, # 60 tablet, 11 Refills, Maintenance, 07/05/21 14:00:00 EST, [facility], Partial fill upon patient request if the prescription is for a schedule II opioid drug., 165, cm, 02/28/21 14:22:00 EDT, Height,... Start Date: 07/05/21 Status: Ordered methenamine hippurate 1 gm oral tablet 1 tablet = 1 Gm, By Mouth, 2 times a day, # 60 tablet, 1 Refills, Hard Stop 07/05/21 14:00:00 EST, 07/12/20 13:56:00 EST, [facility] #[id number], Partial fill upon patient request if the prescription is for a schedule II opioid drug., 165, cm, 12... Start Date: 07/12/20 Stop Date: 07/05/21 Status: Ordered Metoprolol Tartrate 25 mg oral tablet 1 tablet, By Mouth, 2 times a day, # 60 tablet, 2 Refills, Maintenance, 03/07/21 10:08:00 EDT, [facility] #[id number], 165, cm, 02/28/21 14:22:00 EDT, Height, 127, kg, 02/03/20 14:39:00 EDT, DryWeight Start Date: 03/07/21 Status: Ordered Mitigare 0.6 mg oral capsule 1 capsule, By Mouth, Daily, # 30 capsule, 11 Refills, Maintenance, 12/31/20 16:51:00 EDT, [facility] #[id number], 165, cm, 11/19/20 11:32:00 EDT, Height, 127, [...] 0 Refills, Maintenance, 04/11/21 9:00:00 EDT, Patch, [facility], Partial fill upon patient request, 165, cm, 02/28/21 14:22:00 EDT, Height, 127, kg, 02/03/20 14:39:00 EDT, Dry Weight Start Date: 04/11/21 Stop Date: 05/23/21 Status: Ordered NuLYTELY with Flavor Packs oral powder for reconstitution See Instructions, Drink 240mL every 15-20 minutes until first half is gone. Repeat 6 hours prior toprocedure., # 4,000 mL, 0 Refills, Maintenance, 06/28/20 17:09:00 EST, [facility] #[id number],Partial fill upon patient request if the prescript... Start Date: 06/28/20 Status: Ordered oxyCODONE 10 mg oral tablet 1 tablet = 10 mg, By Mouth, Every 8 hours, DX Z79.891 G89.29 M47.816 OK TO FILL LESS THAN PRESCRIBED AMOUNT, # 84 tablet, 0 Refills, Maintenance, 05/20/21 16:53:00 EDT, Tablet, [email or web address] #[id number], 05/21/21, 165, cm, 02/28/21 14:22:00 EDT, He... Start Date: 05/20/21 Stop Date: 06/17/21 Status: Ordered oxyCODONE 5 mg oral tablet 10 mg, 2, tablet, By Mouth, Every 8 hours, DX Z79.891 G89.29 M47.816 OK TO FILL LESS THAN PRESCRIBED AMOUNT, # 168 tablet, Refills 0, Tot. Refills 0, Maintenance, 03/25/21 16:45:00 EDT, Route to Pharmacy Electronically, [facility] #[id number], D... Start Date: 03/25/21 Stop Date: 04/22/21 Status: Ordered penicillin V potassium 250 mg oral tablet 1 tablet = 250 mg, By Mouth, 2 times a day, Cellulitis prophylaxis, # 60 tablet, 11 Refills, Maintenance, 10/30/20 12:09:00 EDT, [facility] #[id number], 165, cm, 10/19/20 8:59:00 EDT, Height, 127, kg, 02/03/20 14:39:00 EDT, Dry Weight Start Date: 10/30/20 Status: Ordered predniSONE 5 mg oral tablet 1 tablet = 5 mg, By Mouth, Daily, # 30 tablet, 0 Refills, Maintenance, 01/11/21 14:20:00 EDT, Tablet, [facility] #[id number], Partial fill upon patient request if the [...] 1 Refills, Maintenance, 04/09/21 14:31:00 EDT, Tablet, [facility], 165, cm, 02/28/21 14:22:00 EDT, Height, 127, kg, 02/03/20 14:39:00 EDT, Dry Weight Start Date: 04/09/21 Status: Ordered rosuvastatin 10 mg oral tablet 1 tablet = 10 mg, By Mouth, Daily, # 90 tablet, 1 Refills, Maintenance, 05/20/21 15:53:00 EDT, Tablet, [facility], d/c rx for capsules, 165, cm, 02/28/21 14:22:00 EDT, Height, 127, kg, 02/03/20 14:39:00 EDT, Dry Weight Start Date: 05/20/21 Status: Ordered Trulicity Pen 0.75 mg/0.5 mL subcutaneous solution 0.5 mL = 0.75 mg, Subcutaneous Injection, Every week, take on same day every week, rotate injectionsites E11.9, # 2 mL, 1 Refills, Maintenance, 05/21/21 11:18:00 EDT, Solution, [email or web address] #[id number], Partial fill upon patient request if the... Start Date: 05/21/21 Status: Ordered warfarin 2.5 mg oral tablet See Instructions, take 2.5mg sun sat subjet to change based on INR per MD, # 90 each, 3 Refills, Maintenance, 02/11/21 10:38:00 EDT, Tablet, [facility] #[id number], PLEASE GIVE THIS IN COMBINATION WITH 5MG TABLETS;, 165, cm, 01/11/21... 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
--- OUTSIDE RECORDS SUMMARY | 2024-01-02 21:28 | XMS_ITS | Continuity of Care Document ---
Author Organization [facility] Address [address] [place] [address]- Care Team Providers Care Nuclear Licensing Engineer Name Role Phone Krishan GRIDER, Eulogio Molina Primary Care Physician [phone] [place] [facility] [place] Date(s): 11/26/21 - 01/16/[address] [address] Attending Physician: Alfred Lee MD Admitting Physician: Alfred Lee MD Allergies, Adverse Reactions, Alerts Substance Reaction Severity Status Adhesive Bandage Active Dust copd exac/sinus congestion A ctive Immunizations Given and Recorded Vaccine Date Status Refusal Reason SARS-CoV-2 mRNA (zzrdctg-xbft-ebvtc) vax 08/30/21 Recorded influenza virus vaccine, inactivated [...] B adult vaccine 06/14/02 Recorded 1Result Comment: [id number] 2Result Comment: [id number] 3Result Comment: [id number] 4Result Comment: [07/08/2017] [id number] 5Admin Note: [facility] 6Admin Note: [facility] [...] 05/29/21 17:13:00 EDT, [facility][id number], 17, INHALE 2 PUFFS BY MOUTH EVERY [...] 0 Refills, Maintenance, 01/11/22 7:25:00 EDT, Capsule, [facility], Partial fill upon patient request if the prescription is for a schedule II opioid drug., 159, cm, 01/11/22 6:35:0... Start Date: 01/11/22 Stop Date: 02/10/22 Status: Ordered cloNIDine 0.1 mg oral tablet See Instructions, TAKE 1 TABLET BY MOUTH TWICE A DAY NEEDED FOR FOR ANXIETY, # 60 tablet, Refills 0, Instructions Replace Required Details, Route to Pharmacy Electronically, [facility], 165, cm, 01/06/22 14:35:00 EDT, Height, 102.1, kg, ... Start Date: 01/09/22 Status: Ordered colchicine 0.6 mg oral tablet 0.6 mg, 1, tablet, By Mouth, Daily, # 30 tablet, Refills 11, Tot. Refills 11, Maintenance, :00:00 EDT, Route to Pharmacy Electronically, [facility], Partial fill upon patient request if [...] 01/11/22 7:25:00 EDT, Route to Pharmacy Electronically, [facility], Partial fill upon patient request if the prescri... Start Date: 01/11/22 Stop Date: 02/10/22 Status: Ordered duloxetine 20 mg oral enteric coated capsule 2 capsule = 40 mg, By Mouth, Daily at bedtime, # 60 capsule, 11 Refills, Maintenance, 06/25/21 12:00:00 EST, Capsule, [facility], Partial fill upon patient request if [...] 01/18/22 7:26:00 EDT, 01/11/22 7:26:00 EDT, Injection, [facility], Partial fill upon patient request... [...] Required Details, Route to Pharmacy Electronically, [facility], 165, cm, 06/25/21 11:35:00 EST, Height, [...] 13:41:00 EDT, Route to Pharmacy Electronically, [facility], Partial fill upon patient requestif the [...] 03/05/22 16:36:00 EDT, 12/03/21 16:35:00 EDT, Gum, [facility] #[id number], Partial fill uponpatient request if the prescription [...] PROPHYLAXIS., # 60 tablet, 6 Refills, [facility], 165, cm, 11/08/21 10:02:00 EDT, Height, 127, kg, 02/03/20 14:39:00 EDT, Dry Weight Start Date: 11/15/21 Status: Ordered rOPINIRole 0.5 mg oral tablet 1 tablet, By Mouth, 3 times a day, # 90 tablet, 5 Refills, 11/08/21 9:01:00 EDT, [facility], 165, cm, 11/04/21 8:42:00 EDT, Height, 127, kg, 02/03/20 14:39:00 EDT, Dry Weight Start Date: 11/08/21 Status: Ordered rosuvastatin 10 mg oral tablet See Instructions, TAKE 1 TABLET BY MOUTH DAILY, # 90 tablet, 1 Refills, Maintenance, 10/18/21 21:30:00 EDT, [facility], 165, cm, 09/04/21 14:01:00 EST, Height, [...] 01/18/22 7:28:00 EDT, 01/11/22 7:28:00 EDT, Tablet, [facility], Partial fill upon patient request if the prescription is... 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
--- OUTSIDE RECORDS SUMMARY | 2024-01-02 21:28 | XMS_ITS | Continuity of Care Document ---
Author Organization [facility] Address [address] [place] [address]- Care Team Providers Care School Community Relations Coordinator Name Role Phone Radha GRIDER, Fuentes Kenny Primary Care Physician [phone] Encounter [facility] Date(s): 07/23/21 - 08/22/21 [facility] [address] [place] [id number] Allergies, Adverse Reactions, Alerts Substance [...] B adult vaccine 06/14/02 Recorded 1Result Comment: [id number] 2Result Comment: [id number] 3Result Comment: [id number] 4Result Comment: [07/08/2017] 54442-967-84 5Admin Note: [facility] 6Admin Note: [facility] [...] 8.5 Gm, 5 Refills, 05/29/21 17:13:00 EDT, [facility] #[id number], 17, INHALE 2 PUFFS BY MOUTH EVERY [...] 11 Refills, Maintenance, 10/31/20 14:14:00 EDT, Cream, [id number], Partial fill upon patient request if the [...] tablet, Refills 3, Route to Pharmacy Electronically, [facility], 165, cm, 06/25/21 11:35:00 EST, Height, [...] PMR, history of smoking fax to : [phone], 04... Start Date: 10/26/20 Status: Ordered Disposable [...] 11 Refills, Maintenance, 06/25/21 12:00:00 EST, Capsule, [facility], Partial fill upon patient request if [...] Gm, 3 Refills, Maintenance, 06/22/20 14:58:00 EST, [facility] #[id number], 165, cm, 06/07/20 13:52:00 EST, Height, 127, [...] Refills, Maintenance, 05/24/21 16:13:00 EDT, REC Powder, [facility] #[id number], Partial fill upon patient request if the [...] mL, 5 Refills, Maintenance, 10/01/18 10:08:42 EST, [place], 2 sprays Nares, Both 2 times a [...] Required Details, Route to Pharmacy Electronically, [facility], 165, cm, 11/30/21 11:35:00 EST, Height, 127, kg, 02/03/20 14:39:00 [...] tablet, 6Refills, Maintenance, 05/21/21 11:19:00 EDT, Tablet, [facility], Partial fill upon patient request if the prescription is for a schedule II... Start Date: 05/21/21 Status: Ordered methenamine hippurate 1 gm oral tablet 1 tablet = 1 Gm, By Mouth, 2 times a day, # 60 tablet, 11 Refills, Maintenance, 07/05/21 14:00:00 EST, [facility], Partial fill upon patient request if the prescription is for a schedule II opioid drug., 165, cm, 02/28/21 14:22:00 EDT, Height,... Start Date: 07/05/21 Status: Ordered Metoprolol Tartrate 25 mg oral tablet 1 tablet, By Mouth, 2 times a day, # 60 tablet, 3 Refills, [facility], 165, cm, 06/25/21 11:35:00 EST, Height, 127, kg, 02/03/20 14:39:00 EDT, Dry Weight Start Date: 07/09/21 Status: Ordered Mitigare 0.6 mg oral capsule 1 capsule, By Mouth, Daily, # 30 capsule, 11 Refills, Maintenance, 12/31/20 16:51:00 EDT, [id number], 165, cm, 11/19/20 11:32:00 EDT, Height, 127, [...] 0 Refills, Maintenance, 04/11/21 9:00:00 EDT, Patch, [facility], Partial fill upon patient request, 165, cm, 02/28/21 14:22:00 EDT, Height, 127, kg, 02/03/20 14:39:00 EDT, Dry Weight Start Date: 04/11/21 Stop Date: 05/23/21 Status: Ordered NuLYTELY with Flavor Packs oral powder for reconstitution See Instructions, Drink 240mL every 15-20 minutes until first half is gone. Repeat 6 hours prior toprocedure., # 4,000 mL, 0 Refills, Maintenance, 06/28/20 17:09:00 EST, [facility] #[id number],Partial fill upon patient request if the prescript... [...] tablet, 11 Refills, Maintenance, 10/30/20 12:09:00 EDT, [facility] #[id number], 165, cm, 10/19/20 8:59:00 EDT, Height, 127, kg, 02/03/20 14:39:00 EDT, Dry Weight Start Date: 10/30/20 Status: Ordered predniSONE 5 mg oral tablet 1 tablet = 5 mg, By Mouth, Daily, # 30 tablet, 0 Refills, Maintenance, 01/11/21 14:20:00 EDT, Tablet, [facility] #[id number], Partial fill upon patient request if the prescription is for a schedule II opioid drug., 165, cm, 01/11/21 14:05:00 EDT,... Start Date: 01/11/21 Status: Ordered propranolol 20 mg oral tablet 20 mg, 1, tablet, By Mouth, 2 times a day, # 60 tablet, Refills 5, Tot. Refills 5, Maintenance, 06/25/21 11:57:00 EST, Route to Pharmacy Electronically, [facility], Partial fill upon patient request if [...] a day, # 90 tablet, 3 Refills, [facility], 165, cm, 06/25/21 11:35:00 EST, Height, 127, kg, 02/03/20 14:39:00 EDT, Dry Weight Start Date: 07/09/21 Status: Ordered rosuvastatin 10 mg oral tablet 1 tablet = 10 mg, By Mouth, Daily, # 90 tablet, 1 Refills, Maintenance, 05/20/21 15:53:00 EDT, Tablet, [facility], d/c rx for capsules, 165, cm, 02/28/21 14:22:00 EDT, Height, 127, kg, 02/03/20 14:39:00 EDT, Dry Weight Start Date: 05/20/21 Status: Ordered Trulicity Pen 1.5 mg/0.5 mL subcutaneous solution 0.5 mL = 1.5 mg, Subcutaneous Injection, Every week, take on same day every week, rotate injection sites E11.9, # 2 mL, 6 Refills, Maintenance, 07/23/21 10:03:00 EST, Solution, [facility][id number], Partial fill upon patient request if the p... Start Date: 07/23/21 Status: Ordered warfarin 2.5 mg oral tablet See Instructions, Dosing Subject To Change per INR Result per MD, # 30 each, 6 Refills, Maintenance, 06/12/21 17:09:00 EST, Tablet, [facility], Dosing Subject To Change per INR Result per MD,165, cm, 05/21/21 10:54:00 EDT, Height, 127, kg, 07... Start Date: 06/12/21 Status: Ordered warfarin 5 mg oral tablet See Instructions, Dosing Subject To Change Per INR Result per MD, # 30 each, 6 Refills, Maintenance, 06/12/21 17:05:00 EST, Tablet, [facility], PLEASE GIVE BOTH 5MG TABLETS AND [...]
--- OUTSIDE RECORDS SUMMARY | 2024-01-02 21:28 | XMS_ITS | Continuity of Care Document ---
Author Organization [facility] Robin Jane Nolberto Address [address] [place] [address]- Care Team Providers Care Hotel Maid Name Role Phone Kyle Ahumada DO Primary Care Physician [phone] Encounter [facility] Date(s): 02/23/23 - 03/25/23 [facility] Robin Bolañosley Adult [address] [place] [address]- Allergies, Adverse Reactions, Alerts Substance Reaction Severity [...] vaccine, inactivated 05/10/07 Jarrett rded SARS-CoV-2 mRNA ([id number]-[id number]-rtyyj) vax 08/30/21 Recorded SARS-CoV-2 (COVID-19) mRNA BNT-162b2 vac 01/02/21 Recorded SARS-CoV-2 (COVID-19) mRNA BNT-162b2 vac 12/02/20 Recorded Fluvirin (oldterm) 8 03/22/15 Given Fluzone Preservative-Free (oldterm) 9 03/12/12 Giv en pneumococcal 23-valent vaccine 10/08/11 Given tetanus/diphtheria/pertussis, acel(Tdap) 09/08/11 Given tetanus/diphtheria/pertussis, acel(Tdap) 12/17/06 Recorded influ virus vac, H1N1, inactive(oldterm) 10 05/08/11 Given hepatitis B adult vaccine 06/14/02 Recorded 1Result Comment: [id number] 2Result Comment: [id number] 3Result Comment: [id number] 4Result Comment: [id number] 5Result Comment: [07/08/2017] [id number] 6Admin Note: [facility] 7Admin Note: [facility] 04-08 8Admin Note: Given at [facility] 9Admin Note: 03-11-12 GIVEN AT [facility] 10Admin Note: rcvd elsewhere Medications acetaminophen 325 mg oral tablet 650 mg, 2, tablet, By Mouth, Every 6 hours, PRN, # 100 tablet, Refills 1, Tot. Refills 1, Maintenance, Pain , Moderate, 03/13/23 16:59:00 EDT, Route to Pharmacy Electronically, [facility], Partial fill upon patient request if the prescription... Start Date: 03/13/23 Status: Ordered Albuterol (Eqv-ProAir HFA) 90 mcg/inh inhalation aerosol See Instructions, INHALE 2 PUFFS BY MOUTH EVERY FOUR HOURS NEEDED FOR WHEEZING OR SHORTNESS OF BREATH, # 8.5 Gm, 5 Refills, Maintenance, 03/13/23 9:55:00 EDT, [facility], 30, INHALE 2 PUFFS BY [...] 03/12/23 15:30:00 EDT, Route to Pharmacy Electronically, [facility], 160, cm, 03/02/23 9:56:00 EDT, Height, 98.8, k... Start Date: 03/12/23 Status: Ordered cloNIDine 0.1 mg oral tablet 0.1 mg, 1, tablet, By Mouth, 2 times a day, PRN, # 60 tablet, Refills 2, Tot. Refills 2, Maintenance, Anxiety, 03/12/23 16:38:00 EDT, [facility], Partial fill upon patient request if the prescription is for a... Start Date: 03/12/23 Status: Ordered cyclobenzaprine 5 mg oral tablet 1 tablet = 5 mg, By Mouth, 3 times a day, # 45 tablet, 1 Refills, Maintenance, 03/03/23 9:27:00 EDT, Tablet, [facility], Partial fill upon patient request if the prescription is for a schedule II opioid drug., 160, cm, 03/02/23 9:56:00 EDT, He... Start Date: 03/03/23 Status: Ordered DilTIAZem (Eqv-Dilacor XR) 240 mg/24 hours oral capsule, extended release 1 capsule = 240 mg, By Mouth, Daily, # 90 capsule, 3 Refills, Maintenance, 03/13/23 17:04:00 EDT, CD Capsule, [facility], Partial fill upon patient [...] 03/13/23 16:56:00 EDT, Route to Pharmacy Electronically, [facility], Partial fill upon patient request if the prescriptio... Start Date: 03/13/23 Stop Date: 04/12/23 Status: Ordered duloxetine 20 mg oral enteric coated capsule 2 capsule = 40 mg, By Mouth, Daily at bedtime, # 60 capsule, 11 Refills, Maintenance, 06/25/21 12:00:00 EST, Capsule, [facility], Partial fill upon patient request if [...] 03/02/23 18:12:00 EDT, Route to Pharmacy Electronically, [facility], Partial fill upon patient request if the prescription is for a schedule II opioid drug... Start Date: 03/02/23 Status: Ordered ipratropium nasal 21 mcg/inh spray 2 sprays = 42 mcg, Nares, Both, 2 times a day, # 30 mL, 5 Refills, Maintenance, 03/13/23 16:58:00 EDT, [place], [facility], Partial fill upon patient request if [...] 02/07/23 18:12:00 EDT, Route to Pharmacy Electronically, [facility], 160, cm, 12/16/22 10:46:00 EDT, Height, [...] 3 Refills, Maintenance, 03/13/23 17:03:00 EDT, Patch, [facility], Partial fill upon patient request if the prescription is for a schedule II opioid drug., 1 patch Topically Daily, 160, cm, 03/02/23 9:56:0... Start Date: 03/13/23 Status: Ordered penicillin V potassium 250 mg oral tablet 1 tablet = 250 mg, By Mouth, 2 times a day, CELLULITIS PROPHYLAXIS, # 60 tablet, 5 Refills, Maintenance, 11/06/22 17:25:00 EDT, Tablet, [facility], Partial fill upon patient request if the prescription is for a schedule II opioid drug., 160, c... Start Date: 11/06/22 Stop Date: 05/05/23 Status: Ordered rOPINIRole 0.5 mg oral tablet 1 tablet, By Mouth, 3 times a day, ^1R1,1R3,1R4., # 90 tablet, 5 Refills, Maintenance, 12/24/22 14:21:00 [facility], [facility], [facility], cm, 12/16/22 10:46:00 EDT, Height, 98.8, kg, 07/17/22 8:58:00 EST, Dry Weight Start Date: 12/24/22 Status: Ordered rosuvastatin 10 mg oral tablet 1 tablet, By Mouth, Daily, ^1R1., # 30 tablet, 5 Refills, Maintenance, 02/07/23 18:12:00 EDT, [facility], 160, cm, 12/16/22 10:46:00 EDT, Height, 98.8, kg, 07/17/22 8:58:00 EST, Dry Weight Start Date: 02/07/23 Status: Ordered Symbicort 80mcg/4.5mcg Inhaler See Instructions, INHALE 2 PUFFS BY MOUTH TWICE A DAY RINSE MOUTH AND THROAT AFTER USE, # 10.2 Gm, Refills 5, Tot. Refills 5, Maintenance, 03/13/23 10:13:00 EDT, Instructions Replace Required Details, Route to Pharmacy Electronically, [id number]... 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 ED RN W/OE and Tasks Member Role: Primary Care Nurse Name: Alma Delia Fonseca PharmD Position: [facility] Associate Professional Member Role: Lifetime Consulting Provider Address: Address: [address] [place] [address]- [place] Name: Yolis Mattson RN Position: [facility] RN Member Role: Primary Care Nurse Name: Priscila Garzon RN Position: [facility] RN Member Role: Primary Care Nurse Name: Kyle Ahumada DO Position: [facility] Physician - Primary Care Member Role: PCP Address: Address: [address] [place] [address]- [place] Name: Renea Mart RN Position: [facility] RN Member Role: Primary Care Nurse Care Team Related Persons Name: FAUZIA JANSEN Address: home [address] [place] [address] Name: AURELIA SHETH Address: home [address] [place] [address] Name: BRE OSORIO Address: home [address] [place] [address]
--- OUTSIDE RECORDS SUMMARY | 2024-01-02 21:29 | XMS_ITS | Continuity of Care Document ---
Author Organization [facility] Buck Nolberto Address [address] [place] [address]- Care Team Providers Care Farmworker Vegetable Name Role Phone Krishan GRIDER, Eulogio Molina Primary Care Physician [facility] Date(s): 01/06/22 - 01/13/22 [facility] Adult [address] [place] [address]- Attending Physician: Not on Staff, Attending MD Allergies, Adverse Reactions, Alerts Substance Reaction Severity Status Adhesive Bandage Active Dust copd exac/sinus congestion A ctive Immunizations Given and Recorded Vaccine Date Status Refusal Reason SARS-CoV-2 mRNA (qrkhdcp-[id number]) vax 08/30/21 Recorded influenza virus vaccine, inactivated [...] B adult vaccine 06/14/02 Recorded 1Result Comment: [id number] 2Result Comment: [id number] 3Result Comment: [id number] 4Result Comment: [07/08/2017] [id number] 5Admin Note: [facility] 6Admin Note: [facility] [...] 8.5 Gm, 5 Refills, 05/29/21 17:13:00 EDT, [facility] #[id number], 17, INHALE 2 PUFFS BY MOUTH EVERY [...] 0 Refills, Maintenance, 01/11/22 7:25:00 EDT, Capsule, [facility], Partial fill upon [...] Required Details, Route to Pharmacy Electronically, [facility], 165, cm, 01/06/22 14:35:00 EDT, Height, 102.1, kg, ... Start Date: 01/09/22 Status: Ordered colchicine 0.6 mg oral tablet 0.6 mg, 1, tablet, By Mouth, Daily, # 30 tablet, Refills 11, Tot. Refills 11, Maintenance, :00:00 EDT, Route to Pharmacy Electronically, [facility], Partial fill upon patient request [...] 01/11/22 7:25:00 EDT, Route to Pharmacy Electronically, [facility], Partial fill upon patient request if the prescri... Start Date: 01/11/22 Stop Date: 02/10/22 Status: Ordered duloxetine 20 mg oral enteric coated capsule 2 capsule = 40 mg, By Mouth, Daily at bedtime, # 60 capsule, 11 Refills, Maintenance, 06/25/21 12:00:00 EST, Capsule, [facility], Partial fill upon patient request [...] 01/18/22 7:26:00 EDT, 01/11/22 7:26:00 EDT, [facility]jection, [facility], Partial fill upon patient request... [...] 01/16/22 7:27:00 EDT, 01/11/22 7:26:00 EDT, Tablet, [facility], Partial fill upon patient request if the prescription... Start Date: 01/11/22 Stop Date: 01/16/22 Status: Ordered loratadine 10 mg oral tablet See Instructions, TAKE 1 TABLET BY MOUTH ONCE A DAY, # 90 tablet, Refills 1, Instructions Replace Required Details, Route to Pharmacy Electronically, [facility], 165, cm, 06/25/21 11:35:00 EST, [...] 12/11/21 13:41:00 EDT, Route to Pharmacy Electronically, [facility], Partial fill upon patient requestif the [...] 03/05/22 16:36:00 EDT, 12/03/21 16:35:00 EDT, Gum, [facility] #[id number], Partial fill uponpatient request if the prescription [...] CELLULITIS PROPHYLAXIS., # 60 tablet, 6 Refills, [facility], 165, cm, 11/08/21 10:02:00 EDT, Height, 127, kg, 02/03/20 14:39:00 EDT, Dry Weight Start Date: 11/15/21 Status: Ordered rOPINIRole 0.5 mg oral tablet 1 tablet, By Mouth, 3 times a day, # 90 tablet, 5 Refills, 11/08/21 9:01:00 EDT, [facility], 165, cm, 11/04/21 8:42:00 EDT, Height, 127, kg, 02/03/20 14:39:00 EDT, Dry Weight Start Date: 11/08/21 Status: Ordered rosuvastatin 10 mg oral tablet See Instructions, TAKE 1 TABLET BY MOUTH DAILY, # 90 tablet, 1 Refills, Maintenance, 10/18/21 21:30:00 EDT, [facility], 165, cm, 09/04/21 14:01:00 EST, [...] 01/18/22 7:28:00 EDT, 01/11/22 7:28:00 EDT, Tablet, [facility], Partial fill upon patient request if the prescription is... 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
--- OUTSIDE RECORDS SUMMARY | 2024-01-02 21:29 | XMS_ITS | Continuity of Care Document ---
Author Organization [facility] Address [address] [place] [address]- Care Team Providers Care Otolaryngologist Name Role Phone Krishan GRIDER, Eulogio Molina Primary Care Physician [phone] Encounter [facility] Date(s): 07/04/22 - 08/03/22 [facility] [address] [place] [address]- Attending Physician: Admtr, Desire Admitting Physician: Admtr, Allan8 Referring Physician: Admtr, [...] vaccine, inactivated 05/10/07 Jarrett rded SARS-CoV-2 mRNA ([id number]) vax 08/30/21 Recorded SARS-CoV-2 (COVID-19) mRNA BNT-162b2 vac 01/02/21 Recorded SARS-CoV-2 (COVID-19) mRNA BNT-162b2 vac 12/02/20 Recorded Fluvirin (oldterm) 8 03/22/15 Given Fluzone Preservative-Free (oldterm) 9 03/12/12 Giv en pneumococcal 23-valent vaccine 10/08/11 Given tetanus/diphtheria/pertussis, acel(Tdap) 09/08/11 Given tetanus/diphtheria/pertussis, acel(Tdap) 12/17/06 Recorded influ virus vac, H1N1, inactive(oldterm) 10 05/08/11 Given hepatitis B adult vaccine 06/14/02 Recorded 1Result Comment: [id number] 2Result Comment: [id number] 3Result Comment: [id number] 4Result Comment: [id number] 5Result Comment: [07/08/2017] [id number] 6Admin Note: [facility] 7Admin Note: [facility] [...] EDT, Route to Pharmacy Electronically, [facility], Partial fill upon patient request if [...] 07/17/22 17:07:00 EST, Route to Pharmacy Electronically, [facility], 160, cm, 07/17/22 12:03:00 [...] 5 Refills, Maintenance, 07/29/22 6:50:00 EST, Tablet, [facility], Partial fill [...] tablet, 5 Refills, Maintenance, 07/24/22 23:41:00 EST, [facility], 160, cm, 07/18/22 11:39:00 EST, Height, [...] Gm, 5 Refills, Maintenance, 07/17/22 11:09:00 EST, [facility], 160, cm, 07/17/22 8:49:00 EST, Height, 98.8, kg, 07/17/22 8:58:00 EST, Dry Weight Start Date: 07/17/22 Status: Ordered Symbicort 80mcg/4.5mcg Inhaler See Instructions, INHALE 2 PUFFS BY MOUTH TWICE A DAY RINSE MOUTH AND THROAT AFTER USE, # 10.2 Gm, Refills 5, Maintenance, 07/30/22 21:16:00 EST, Instructions Replace Required Details, Route to Pharmacy Electronically, [id number], [facility]... Start Date: 07/30/22 Status: Ordered warfarin [...] Team Personnel Name: Sandra Wills NP Position: [facility] PCO Associate Professional Member Role: Primary Care Nurse Address: Address: [address] [place] [address] [place] [address]- Name: Marley Alejo RN Position: [facility] RN Member Role: Primary Care Nurse Name: Eulogio Nickerson MD Position: [facility] Primary Care Physician Member Role: PCP Address: Address: [address] [place] [address] [place] [address]- [place] Name: Alma Delia Fonseca PharmD Position: [facility] Associate Professional Member Role: Lifetime Consulting Provider Address: Address: [address] [place] [address] [place] [address]- Name: Yolis Mattson RN Position: [facility] RN Member Role: Primary Care Nurse Name: Priscila Garzon RN Position: [facility] RN Member Role: Primary Care Nurse Name: Renea Mart RN Position: [facility] RN Member Role: Primary Care Nurse Care Team Related Persons Name: FAUZIA JANSEN Address: [address] [place] [address] Name: AURELIA SHETH Address: [address] [place] [address] Name: BRE OSORIO Address: [address] [place] [address]
--- OUTSIDE RECORDS SUMMARY | 2024-01-02 21:29 | XMS_ITS | Continuity of Care Document ---
Author Organization [facility] Buck Nolberto Address [address] [place] [address]- Care Team Providers Care Ore Miner Blasting Name Role Phone Eulogio Nickerson MD Primary Care Physician [place] [facility] [place] 01/06/22 [facility] Adult [address] [place] [address]- Attending Physician: Eulogio Nickerson MD Allergies, Adverse Reactions, Alerts Substance Reaction Severity Status Adhesive Bandage Active Dust copd exac/sinus congestion A ctive Immunizations Given and Recorded Vaccine Date Status Refusal Reason SARS-CoV-2 mRNA ([id number]) vax 08/30/21 Recorded influenza virus vaccine, inactivated [...] B adult vaccine 06/14/02 Recorded 1Result Comment: [id number] 2Result Comment: [id number] 3Result Comment: [id number] 4Result Comment: [07/08/2017] [id number] 5Admin Note: [facility] 6Admin Note: [facility] [...] Refills, 05/29/21 17:13:00 EDT, [facility] #[id number], 17, INHALE 2 PUFFS BY MOUTH EVERY [...] 01/06/22 15:10:00 EDT, [facility], Partial fill upon patient request if the prescription is for a... Start Date: 01/06/22 Status: Ordered colchicine 0.6 mg oral tablet 0.6 mg, 1, tablet, By Mouth, Daily, # 30 tablet, Refills 11, Tot. Refills 11, Maintenance, :00:00 EDT, Route to Pharmacy Electronically, [facility], Partial fill upon patient request if the prescription is for a schedule II opioid dr... Start Date: 10/30/21 Status: Ordered duloxetine 20 mg oral enteric coated capsule 2 capsule = 40 mg, By Mouth, Daily at bedtime, # 60 capsule, 11 Refills, Maintenance, 06/25/21 12:00:00 EST, Capsule, [facility], Partial fill upon patient [...] Details, Route to Pharmacy Electronically, [facility], 165, cm, 06/25/21 11:35:00 EST, Height, 127, kg, 02/03/20 14:39:00 EDT, Dry Weight Start Date: 08/05/21 Status: Ordered metoprolol 100 mg oral tablet, extended release 100 mg, 1, tablet, By Mouth, Daily, # 90 tablet, Refills 1, Tot. Refills 1, Maintenance, 12/11/21 13:41:00 EDT, [facility], Partial fill upon patient requestif the prescription is for a schedule II opioid keanu... Start Date: 12/11/21 Status: Ordered nicotine 4 mg oral transmucosal gum 1 each = 4 mg, Chew, Every 2 hours, PRN as needed for smoking cessation, # 160 each, 2 Refills, Acute 08/10/22 16:36:00 EDT, 12/03/21 16:35:00 EDT, [facility] #[id number], Partial fill uponpatient request if the prescription is for a schedu... Start Date: 12/03/21 Stop Date: 03/05/22 Status: Ordered NuLYTELY with Flavor Packs oral powder for reconstitution 240 mL, By Mouth, Every 10 minutes, # 1 each, 0 Refills, Maintenance, 10/25/21 10:39:00 EDT, REC Powder, [facility], Partial fill upon patient request if the prescription is for a schedule IIopioid drug., 240 mL By Mouth Every 10 minutes, 165... Start Date: 10/25/21 Status: Ordered penicillin V potassium 250 mg oral tablet 1 tablet, By Mouth, 2 times a day, CELLULITIS PROPHYLAXIS., # 60 tablet, 6 Refills, [facility], 165, cm, 11/08/21 10:02:00 EDT, Height, 127, kg, 02/03/20 14:39:00 EDT, Dry Weight Start Date: 11/15/21 Status: Ordered rOPINIRole 0.5 mg oral tablet 1 tablet, By Mouth, 3 times a day, # 90 tablet, 5 Refills, 11/08/21 9:01:00 EDT, [facility], 165, cm, 11/04/21 8:42:00 EDT, Height, 127, kg, 02/03/20 14:39:00 EDT, Dry Weight Start Date: 11/08/21 Status: Ordered rosuvastatin 10 mg oral tablet See Instructions, TAKE 1 TABLET BY MOUTH DAILY, # 90 tablet, 1 Refills, Maintenance, 10/18/21 21:30:00 EDT, [facility], 165, cm, 09/04/21 14:01:00 [...] 6 Refills, Maintenance, 12/13/21 13:47:00 EDT, Tablet, [facility], Dosing Subject To Change per INR Result per MD,165, cm, 12/06/21 14:01:00 EDT, Height, 102.1, kg,... Start Date: 12/13/21 Status: Ordered warfarin 5 mg oral tablet See Instructions, Dosing Subject To Change Per INR Result per MD, # 30 each, 6 Refills, Maintenance, 12/13/21 14:01:00 EDT, Tablet, [facility], PLEASE GIVE BOTH 5MG TABLETS AND [...] oldest [Reference Range]: 1 Height 165 cm (12/30/21 2:23 PM) Weight 104.1 kg (12/30/21 2:23 PM) Oxygen Saturation [94-100 %] 98 % (12/30/21 2:23 PM) Pulse Rate [55-90 bpm] 88 bpm (12/30/21 2:23 PM) Body Mass Index [18.5-24.99] 38.24 *>HHI* (12/30/21 2:23 PM) Blood Pressure [90-138/55-84 mm Hg] 128/ 85mm Hg (12/30/21 2:23 PM) Temperature [96.8-100.4 DegF] 97.8 DegF (12/30/21 2:23 PM) Mode of Delivery (Oxygen) Room air (12/30/21 2:23 PM) Blood pressure sites Arm, left (12/30/21 2:23 PM) Temperature Route Oral (12/30/21 2:23 PM) Weight Obtained Via Standing scale (12/30/21 2:23 PM) Social History Social History Type Response Smoking Status 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
--- OUTSIDE RECORDS SUMMARY | 2024-01-02 21:29 | XMS_ITS | Continuity of Care Document ---
Author Organization [facility] Robin Jane Nolberto Address [address] [place] [address]- Care Team Providers Care Semiconductor Processor Name Role Phone Fuentes Garcia MD Primary Care Physician [facility]counter [facility] Date(s): 10/03/20 - 11/02/20 [facility] Robin Bolañosley Adult [address] [place] [address]- Allergies, Adverse Reactions, Alerts Substance Reaction Severity [...] H1N1, inactive(oldterm) 8 05/08/11 Given 1Result Comment: [id number] 2Result Comment: [id number] 3Result Comment: [07/08/2017] [id number] 4Admin Note: [facility] 5Admin Note: [facility] [...] 11 Refills, Maintenance, 10/31/20 14:14:00 EDT, Cream, [facility] #[id number], Partial fill upon patient request if the [...] 06/04/20 12:56:00 EST, Route to Pharmacy Electronically, [facility] #[id number], please schedule appt for further refills, 165, cm, 05/16/20 14:15:00 EDT, Hei... Start Date: 06/04/20 Status: Ordered Claritin 10 mg oral tablet 10 mg, 1, tablet, By Mouth, Daily, for 90 days, # 90 tablet, Refills 3, Tot. Refills 3, Acute 07/28/21 15:22:00 EST, 08/02/20 15:22:00 EST, Route to Pharmacy Electronically, [facility] #[id number], 165, cm, 07/31/20 14:32:00 EST, Height, 127, [...] PMR, history of smoking fax to : [phone], 04... Start Date: 10/26/20 Status: Ordered Disposable [...] Gm, 3 Refills, Maintenance, 06/22/20 14:58:00 EST, [facility] #[id number], 165, cm, 06/07/20 13:52:00 EST, Height, 127, [...] mL, 5 Refills, Maintenance, 10/01/18 10:08:42 EST, [place], 2 sprays Nares, Both 2 times a [...] 08/02/20 16:13:00 EST, Route to Pharmacy Electronically, [facility] #[id number], D/C RX ON FILE FOR CLARITAN, 165, [...] tablet, 1 Refills, Maintenance, 07/12/20 13:56:00 EST, [facility] #[id number], Partial fill upon patient request if the prescription is for a schedule II opioid drug., 165, cm, 07/11/20 15:24:00 EST,... Start Date: 07/12/20 Stop Date: 07/05/21 Status: Ordered metoprolol 25 mg oral tablet 25 mg, 1, tablet, By Mouth, 2 times a day, # 60 tablet, Refills 5, Tot. Refills 5, Maintenance, 09/22/20 13:59:00 EST, Route to Pharmacy Electronically, [facility] #[id number], 165, cm, 07/31/2113:32:00 EST, Height, 127, kg, 02/03/20 14:39:00 ED... Start Date: 09/22/20 Status: Ordered Mitigare 0.6 mg oral capsule 1 capsule = 0.6 mg, By Mouth, Daily, # 30 capsule, 11 Refills, Maintenance, 10/31/20 14:29:00 EDT, [facility] #[id number], D/C RX ON FILE FOR COLCHICINE NOT [...] 0 Refills, Maintenance, 06/18/20 16:57:00 EST, Patch, [facility] #[id number], Partial fill upon patient request, 165, cm, 06/07/20 13:52:00 EST, Height, 127, kg, 02/03/20 14:39:00 EDT, Dry Weight Start Date: 06/18/20 Stop Date: 07/30/20 Status: Ordered NuLYTELY with Flavor Packs oral powder for reconstitution See Instructions, Drink 240mL every 15-20 minutes until first half is gone. Repeat 6 hours prior toprocedure., # 4,000 mL, 0 Refills, Maintenance, 06/28/20 17:09:00 EST, [facility] #[id number],Partial fill upon patient request if the prescript... Start Date: 06/28/20 Status: Ordered oxyCODONE 10 mg oral tablet 1 tablet = 10 mg, By Mouth, Every 8 hours, DX Z79.891 G89.29 M47.816 OK TO FILL LESS THAN PRESCRIBED AMOUNT, # 84 tablet, 0 Refills, Maintenance, 10/08/20 16:54:00 EDT, Tablet, [facility] #[id number], 10/09/20, 165, cm, 07/31/20 14:32:00 EST, He... Start Date: 10/08/20 Stop Date: 11/05/20 Status: Ordered penicillin V potassium 250 mg oral tablet 1 tablet = 250 mg, By Mouth, 2 times a day, Cellulitis prophylaxis, # 60 tablet, 11 Refills, Maintenance, 10/30/20 12:09:00 EDT, [facility] #[id number], 165, cm, 10/19/20 8:59:00 EDT, Height, 127, kg, 02/03/20 14:39:00 EDT, Dry Weight Start Date: 10/30/20 Status: Ordered predniSONE 10 mg oral tablet 1 tablet = 10 mg, By Mouth, Daily, # 30 tablet, 0 Refills, Maintenance, 10/12/20 9:55:00 EDT, Tablet, [facility] #[id number], Partial fill upon patient request if the [...] 5 Refills, Maintenance, 04/30/20 15:13:00 EDT, Tablet, [facility] #[id number], 165, cm, 04/30/20 14:30:00 EDT, Height, 127, kg, 02/03/20 14:39:00 EDT, Dry Weight Start Date: 04/30/20 Status: Ordered rosuvastatin 10 mg oral tablet 1 tablet = 10 mg, By Mouth, Daily, # 90 tablet, 3 Refills, Maintenance, 05/03/20 16:35:00 EDT, Tablet, [facility] #[id number], d/c rx for capsules, 165, cm, 04/30/20 14:30:00 EDT, Height, 127, kg, 02/03/20 14:39:00 EDT, Dry Weight Start Date: 05/03/20 Status: Ordered Ventolin HFA 108 mcg/inh inhalation aerosol with adapter 2 puffs, Inhalation, Every 4 hours, PRN Wheezing/Shortness of Breath, # 1 each, 11 Refills, Soft Stop, 01/19/20 11:46:00 EDT, [facility] #[id number], 165, cm, 01/16/20 6:17:00 EDT, Height, 128.1, kg, 01/16/20 6:17:00 EDT, Dry Weight Start Date: 01/19/20 Status: Ordered warfarin 5 mg oral tablet 1 tablet = 5 mg, By Mouth, Daily, dosing subject to change pending inr lab values, # 30 tablet, 11 Refills, Maintenance, 08/31/20 15:36:00 EST, Tablet, [facility] #[id number], 165, cm, 07/31/20 14:32:00 EST, Height, 127, [...] use(Confirmed) Active Gastric banding status(Confirmed) 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
--- OUTSIDE RECORDS SUMMARY | 2024-01-02 21:29 | XMS_ITS | Continuity of Care Document ---
Author Organization [facility] Address [address] [place] [address]- Care Team Providers Care Catechist Name Role Phone Krishan GRIDER, Eulogio Molina Primary Care Physician [phone] Encounter [facility] [place] Date(s[place] 11/04/21 - 01/15/22 [facility] [address] [place] [address]- Attending Physician: Ashu Zavaleta DO Admitting Physician: Ashu Zavaleta DO Referring Physician: Not on Staff, Referring MD Allergies, Adverse Reactions, Alerts Substance Reaction Severity Status Adhesive Bandage Active Dust copd exac/sinus congestion A ctive Immunizations Given and Recorded Vaccine Date Status Refusal Reason SARS-CoV-2 mRNA ([id number]) vax 08/30/21 Recorded influenza virus vaccine, inactivated [...] B adult vaccine 06/14/02 Recorded 1Result Comment: [id number] 2Result Comment: [id number] 3Result Comment: [id number] 4Result Comment: [07/08/2017] [id number] 5Admin Note: [facility] 6Admin Note: [facility] [...] 8.5 Gm, 5 Refills, 05/29/21 17:13:00 EDT, [facility] #[id number], 17, INHALE 2 PUFFS BY MOUTH EVERY [...] Replace Required Details, Route to Pharmacy Electronically, [facility], 165, cm, 01/06/22 14:35:00 EDT, Height, 102.1, kg, 05/... Start Date: 01/09/22 Status: Ordered colchicine 0.6 mg oral tablet 0.6 mg, 1, tablet, By Mouth, Daily, # 30 tablet, Refills 11, Tot. Refills 11, Maintenance, 227:00:00 EDT, Route to Pharmacy Electronically, [facility], Partial fill upon patient [...] Route to Pharmacy Electronically, [facility], Partial fill upon patient request if the prescri... Start Date: 01/11/22 Stop Date: 02/10/22 Status: Ordered duloxetine 20 mg oral enteric coated capsule 2 capsule = 40 mg, By Mouth, Daily at bedtime, # 60 capsule, 11 Refills, Maintenance, 06/25/21 12:00:00 EST, Capsule, [facility], Partial fill upon patient [...] 01/18/22 7:26:00 EDT, 01/11/22 7:26:00 EDT, Injection, [facility], Partial fill upon patient request... Start [...] 01/16/22 7:27:00 EDT, 01/11/22 7:26:00 EDT, Tablet, [facility], Partial fill upon patient request if the prescription... Start Date: 01/11/22 Stop Date: 01/16/22 Status: Ordered loratadine 10 mg oral tablet See Instructions, TAKE 1 TABLET BY MOUTH ONCE A DAY, # 90 tablet, Refills 1, Instructions Replace Required Details, Route to Pharmacy Electronically, [facility], 165, cm, 06/25/21 11:35:00 [...] 12/11/21 13:41:00 EDT, Route to Pharmacy Electronically, [facility], Partial fill upon patient requestif the [...] 03/05/22 16:36:00 EDT, 12/03/21 16:35:00 EDT, Gum, [facility] #[id number], Partial fill uponpatient request if the prescription [...] CELLULITIS PROPHYLAXIS., # 60 tablet, 6 Refills, [facility], 165, cm, 11/08/21 10:02:00 EDT, Height, 127, kg, 02/03/20 14:39:00 EDT, Dry Weight Start Date: 11/15/21 Status: Ordered rOPINIRole 0.5 mg oral tablet 1 tablet, By Mouth, 3 times a day, # 90 tablet, 5 Refills, 11/08/21 9:01:00 EDT, [facility], 165, cm, 11/04/21 8:42:00 EDT, Height, 127, kg, 02/03/20 14:39:00 EDT, Dry Weight Start Date: 11/08/21 Status: Ordered rosuvastatin 10 mg oral tablet See Instructions, TAKE 1 TABLET BY MOUTH DAILY, # 90 tablet, 1 Refills, Maintenance, 10/18/21 21:30:00 EDT, [facility], 165, cm, 09/04/21 14:01:00 EST, [...] 01/18/22 7:28:00 EDT, 01/11/22 7:28:00 EDT, Tablet, [facility], Partial fill [...]
--- OUTSIDE RECORDS SUMMARY | 2024-01-02 21:29 | XMS_ITS | Continuity of Care Document ---
Author Organization [facility] Robin Jane Nolberto Address [address] [place] [address]- Care Team Providers Care Radio Time Sales Supervisor Name Role Phone Fuentes Garcia MD Primary Care Physician Encounter [facility] Date(s): 11/14/20 - 12/14/20 [facility] Robin Bolañosley Adult [address] [place] [address]- Allergies, Adverse Reactions, Alerts Substance Reaction Severity [...] influenza virus vaccine, inactivated 4 04/01/17 Gi otcavio influenza virus vaccine, inactivated 08/12/16 Jarrett rded influenza virus vaccine, inactivated 05/23/14 Give n influenza virus vaccine, inactivated 5 06/07/13 Gi octavio Fluvirin (oldterm) 6 03/22/15 Given Fluzone Preservative-Free (oldterm) 7 03/12/12 Giv en pneumococcal 23-valent vaccine 10/08/11 Given tetanus/diphtheria/pertussis, acel(Tdap) 09/08/11 Given influ virus vac, H1N1, inactive(oldterm) 8 05/08/11 Given 1Result Comment: [id number] 2Result Comment: [id number] 3Result Comment: [07/08/2017] [id number] 4Admin Note: [facility] 5Admin Note: [facility] [...] 11 Refills, Maintenance, 10/31/20 14:14:00 EDT, Cream, [facility] #[id number], Partial fill upon patient request if the [...] 11/27/20 10:09:00 EDT, Route to Pharmacy Electronically, [facility] #[id number], please schedule appt for further refills, 165, cm, 11/19/20 11:32:00 EDT, Hei... Start Date: 11/27/20 Status: Ordered Claritin 10 mg oral tablet 10 mg, 1, tablet, By Mouth, Daily, for 90 days, # 90 tablet, Refills 3, Tot. Refills 3, Acute 07/28/21 15:22:00 EST, 08/02/20 15:22:00 EST, Route to Pharmacy Electronically, [facility] #[id number], 165, cm, 07/31/20 14:32:00 EST, Height, 127, [...] PMR, history of smoking fax to : [phone], 04... Start Date: 10/26/20 Status: Ordered Disposable [...] Gm, 3 Refills, Maintenance, 06/22/20 14:58:00 EST, [id number], 165, cm, 06/07/20 13:52:00 EST, Height, 127, [...] mL, 5 Refills, Maintenance, 10/01/18 10:08:42 EST, [place], 2 sprays Nares, Both 2 times a [...] 08/02/20 16:13:00 EST, Route to Pharmacy Electronically, [facility] #[id number], D/C RX ON FILE FOR CLARITAN, 165, [...] tablet, 1 Refills, Maintenance, 07/12/20 13:56:00 EST, [facility] #[id number], Partial fill upon patient request if the prescription is for a schedule II opioid drug., 165, cm, 07/11/20 15:24:00 EST,... Start Date: 07/12/20 Stop Date: 07/05/21 Status: Ordered metoprolol 25 mg oral tablet 25 mg, 1, tablet, By Mouth, 2 times a day, # 60 tablet, Refills 5, Tot. Refills 5, Maintenance, 09/22/20 13:59:00 EST, Route to Pharmacy Electronically, [facility] #[id number], 165, cm, 07/31/2113:32:00 EST, Height, 127, kg, 02/03/20 14:39:00 ED... Start Date: 09/22/20 Status: Ordered Mitigare 0.6 mg oral capsule 1 capsule = 0.6 mg, By Mouth, Daily, # 30 capsule, 11 Refills, Maintenance, 10/31/20 14:29:00 EDT, [facility] #[id number], D/C RX ON FILE FOR COLCHICINE NOT [...] 0 Refills, Maintenance, 06/18/20 16:57:00 EST, Patch, [facility] #[id number], Partial fill upon patient request, 165, cm, 06/07/20 13:52:00 EST, Height, 127, kg, 02/03/20 14:39:00 EDT, Dry Weight Start Date: 06/18/20 Stop Date: 07/30/20 Status: Ordered NuLYTELY with Flavor Packs oral powder for reconstitution See Instructions, Drink 240mL every 15-20 minutes until first half is gone. Repeat 6 hours prior toprocedure., # 4,000 mL, 0 Refills, Maintenance, 06/28/20 17:09:00 EST, [facility] #[id number],Partial fill upon patient request if the prescript... Start Date: 06/28/20 Status: Ordered oxyCODONE 10 mg oral tablet 1 tablet = 10 mg, By Mouth, Every 8 hours, DX Z79.891 G89.29 M47.816 OK TO FILL LESS THAN PRESCRIBED AMOUNT, # 84 tablet, 0 Refills, Maintenance, 12/03/20 12:33:00 EDT, Tablet, [facility] #[id number], 12/04/20, 165, cm, 11/19/20 11:32:00 EDT, He... Start Date: 12/03/20 Stop Date: 12/31/20 Status: Ordered penicillin V potassium 250 mg oral tablet 1 tablet = 250 mg, By Mouth, 2 times a day, Cellulitis prophylaxis, # 60 tablet, 11 Refills, Maintenance, 10/30/20 12:09:00 EDT, [facility] #[id number], 165, cm, 10/19/20 8:59:00 EDT, Height, 127, kg, 02/03/20 14:39:00 EDT, Dry Weight Start Date: 10/30/20 Status: Ordered predniSONE 10 mg oral tablet 1 tablet = 10 mg, By Mouth, Daily, # 30 tablet, 5 Refills, Maintenance, 11/19/20 11:50:00 EDT, Tablet, [facility] #[id number], Partial fill upon patient request if the [...] 5 Refills, Maintenance, 04/30/20 15:13:00 EDT, Tablet, [facility] #[id number], 165, cm, 04/30/20 14:30:00 EDT, Height, 127, kg, 02/03/20 14:39:00 EDT, Dry Weight Start Date: 04/30/20 Status: Ordered rosuvastatin 10 mg oral tablet 1 tablet = 10 mg, By Mouth, Daily, # 90 tablet, 3 Refills, Maintenance, 05/03/20 16:35:00 EDT, Tablet, [facility] #[id number], d/c rx for capsules, 165, cm, 04/30/20 14:30:00 EDT, Height, 127, kg, 02/03/20 14:39:00 EDT, Dry Weight Start Date: 05/03/20 Status: Ordered Ventolin HFA 108 mcg/inh inhalation aerosol with adapter 2 puffs, Inhalation, Every 4 hours, PRN Wheezing/Shortness of Breath, # 1 each, 5 Refills, Soft Stop, 11/08/20 8:46:00 EDT, [facility] #02613, 165, cm, 10/19/20 8:59:00 EDT, Height, 127, kg, 02/03/20 14:39:00 EDT, Dry Weight Start Date: 11/08/20 Status: Ordered warfarin 5 mg oral tablet 1 tablet = 5 mg, By Mouth, Daily, dosing subject to change pending inr lab values, # 30 tablet, 11 Refills, Maintenance, 08/31/20 15:36:00 EST, Tablet, [facility] #[id number], 165, cm, 07/31/20 14:32:00 EST, Height, 127, [...]
--- OUTSIDE RECORDS SUMMARY | 2024-01-02 21:29 | XMS_ITS | Continuity of Care Document ---
Author Organization [facility] Buck Nolberto Address [address] [place] [address]- Care Team Providers Care Asic Engineer Name Role Phone Krishan GRIDER, Eulogio Molina Primary Care Physician Encounter [facility] Date(s): 12/20/21 - 01/19/22 [facility] [place] [facility] [address] [place] [address]- Allergies, Adverse Reactions, Alerts Substance Reaction Severity Status Adhesive Bandage Active Dust copd exac/sinus congestion A ctive Immunizations Given and Recorded Vaccine Date Status Refusal Reason SARS-CoV-2 mRNA (ylawdpn-jewx-[id number]) vax 08/30/21 Recorded influenza virus vaccine, inactivated [...] B adult vaccine 06/14/02 Recorded 1Result Comment: [id number] 2Result Comment: [id number] 3Result Comment: [id number] 4Result Comment: [07/08/2017] [id number] 5Admin Note: [facility] 6Admin Note: [facility] [...] 8.5 Gm, 5 Refills, 05/29/21 17:13:00 EDT, [facility] #[id number], 17, INHALE 2 PUFFS BY MOUTH EVERY [...] 0 Refills, Maintenance, 01/11/22 7:25:00 EDT, Capsule, [facility], Partial fill upon patient [...] [facility], 165, cm, 01/06/22 14:35:00 EDT, [...] 01/11/22 7:25:00 EDT, Route to Pharmacy Electronically, [facility], Partial fill upon patient request [...] 13:41:00 EDT, [facility], Partial fill upon patient requestif the [...] 03/05/22 16:36:00 EDT, 12/03/21 16:35:00 EDT, Gum, [facility] #[id number], Partial fill uponpatient request if the prescription [...] CELLULITIS PROPHYLAXIS., # 60 tablet, 6 [facility]ills, [facility], 165, cm, 11/08/21 10:02:00 EDT, Height, 127, kg, 02/03/20 14:39:00 EDT, Dry Weight Start Date: 11/15/21 Status: Ordered rOPINIRole 0.5 mg oral tablet 1 tablet, By Mouth, 3 times a day, # 90 tablet, 5 Refills, 11/08/21 9:01:00 EDT, [facility], 165, cm, 11/04/21 8:42:00 EDT, [...] 0 Refills, Maintenance, 01/11/22 7:24:00 EDT, Tablet, [facility], Partial fill upon [...] Active DJD (degenerative joint dise ase), lumbar(Confirmed) 11/9/12 Active Essential tremor(Confirmed) Active Fibromyalgia(Confirmed) Active Anticoagulant long-term use(Confirmed) Active Gastric banding status(Confirmed) Active 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
--- OUTSIDE RECORDS SUMMARY | 2024-01-02 21:29 | XMS_ITS | Continuity of Care Document ---
Author Organization [facility] Buck Nolberto Address [address] [place] [address]- Care Team Providers Care Dry Kiln Loader Name Role Phone Krishan GRIDER, Eulogio Molina Primary Care Physician [phone] [facility]counter [facility] Date[facility]s): 12/04/21 - 01/03/22 [facility] Robin Bolañosley Adult [address] [place] [address]- Allergies, Adverse Reactions, Alerts Substance Reaction Severity Status Adhesive Bandage Active Dust copd exac/sinus congestion A ctive Immunizations Given and Recorded Vaccine Date Status Refusal Reason SARS-CoV-2 mRNA (zxadoqs-[id number]-hkbgm) vax 08/30/21 Recorded influenza virus vaccine, inactivated 1 06/25/21 Gi ocatvio influenza virus vaccine, inactivated 2 04/30/20 Gi [...] B adult vaccine 06/14/02 Recorded 1Result Comment: [id number] 2Result Comment: [id number] 3Result Comment: [id number] 4Result Comment: [07/08/2017] [id number] 5Admin Note: [facility] 6Admin Note: [facility] [...] 8.5 Gm, 5 Refills, 05/29/21 17:13:00 EDT, [facility] #[id number], 17, INHALE 2 PUFFS BY MOUTH EVERY 4 HOURS NEEDED FOR WHEEZING OR SHORTNE... Start Date: 05/29/21 Status: Ordered calcipotriene 0.005% topical cream 1 application, Topically, 2 times a day, # 60 Gm, 11 Refills, Maintenance, 11/15/21 11:54:00 EDT, Cream, [facility], Partial fill upon patient request if the prescription is for a schedule IIopioid drug., 1 application Topically 2 times a day... Start Date: 11/15/21 Status: Ordered colchicine 0.6 mg oral tablet 0.6 mg, 1, tablet, By Mouth, Daily, # 30 tablet, Refills 11, Tot. Refills 11, Maintenance, :00:00 EDT, Route to Pharmacy Electronically, [facility], Partial fill upon patient request if the prescription is for a schedule II opioid dr... Start Date: 10/30/21 Status: Ordered digoxin 0.125 mg oral tablet 125 mcg, 1, tablet, By Mouth, Daily, # 90 tablet, Refills 1, Tot. Refills 1, Maintenance, 12/11/21 13:41:00 EDT, Route to Pharmacy Electronically, [facility], Partial fill upon patient request if the prescription is for a schedule II opioid dr... Start Date: 12/11/21 Status: Ordered duloxetine 20 mg oral enteric coated capsule 2 capsule = 40 mg, By Mouth, Daily at bedtime, # 60 capsule, 11 Refills, Maintenance, 06/25/21 12:00:00 EST, Capsule, [facility], Partial fill upon patient request if [...] Details, Route to Pharmacy Electronically, [facility], 165, cm, 06/25/21 11:35:00 EST, Height, 127, kg, 02/03/20 14:39:00 EDT, Dry Weight Start Date: 08/05/21 Status: Ordered metoprolol 100 mg oral tablet, extended release 100 mg, 1, tablet, By Mouth, Daily, # 90 tablet, Refills 1, Tot. Refills 1, Maintenance, 12/11/21 13:41:00 EDT, Route to Pharmacy Electronically, [facility], Partial fill upon patient requestif the prescription is for a schedule II opioid keanu... Start Date: 12/11/21 Status: Ordered nicotine 4 mg oral transmucosal gum 1 each = 4 mg, Chew, Every 2 hours, PRN as needed for smoking cessation, # 160 each, 2 Refills, Acute 03/05/22 16:36:00 EDT, 12/03/21 16:35:00 EDT, [facility] #[id number], Partial fill uponpatient request if the prescription is for a schedu... Start Date: 12/03/21 Stop Date: 03/05/22 Status: Ordered NuLYTELY with Flavor Packs oral powder for reconstitution 240 mL, By Mouth, Every 10 minutes, # 1 each, 0 Refills, Maintenance, 10/25/21 10:39:00 EDT, REC Powder, [facility], Partial fill upon patient request if the prescription is for a schedule IIopioid drug., 240 mL By Mouth Every 10 minutes, 165... Start Date: 10/25/21 Status: Ordered penicillin V potassium 250 mg oral tablet 1 tablet, By Mouth, 2 times a day, CELLULITIS PROPHYLAXIS., # 60 tablet, 6 Refills, [facility], 165, cm, 11/08/21 10:02:00 EDT, Height, 127, kg, 02/03/20 14:39:00 EDT, Dry Weight Start Date: 11/15/21 Status: Ordered rOPINIRole 0.5 mg oral tablet 1 tablet, By Mouth, 3 times a day, # 90 tablet, 5 Refills, 11/08/21 9:01:00 EDT, [facility], 165, cm, 11/04/21 8:42:00 EDT, Height, 127, kg, 02/03/20 14:39:00 EDT, Dry Weight Start Date: 11/08/21 Status: Ordered rosuvastatin 10 mg oral tablet See Instructions, TAKE 1 TABLET BY MOUTH DAILY, # 90 tablet, 1 Refills, Maintenance, 10/18/21 21:30:00 EDT, [facility], 165, cm, 09/04/21 14:01:00 EST, Height, [...] 6 Refills, Maintenance, 12/13/21 13:47:00 EDT, Tablet, [facility], Dosing Subject To Change per INR Result per MD,165, cm, 12/06/21 14:01:00 EDT, Height, 102.1, kg,... Start Date: 12/13/21 Status: Ordered warfarin 5 mg oral tablet See Instructions, Dosing Subject To Change Per INR Result per MD, # 30 each, 6 Refills, Maintenance, 12/13/21 14:01:00 EDT, Tablet, [facility], PLEASE GIVE BOTH 5MG TABLETS AND [...]
--- OUTSIDE RECORDS SUMMARY | 2024-01-02 21:29 | XMS_ITS | Continuity of Care Document ---
Author Organization [facility] Robin Jane Nolberto Address [address] [place] [address]- Care Team Providers Care Aquatic Facility Manager Name Role Phone Radha GRIDER, Fuentes Kenny Primary Care Physician [facility] Date[facility]s): 02/11/21 - 03/13/21 [facility] Robin Bolañosley Adult [address] [place] [address]- Allergies, Adverse Reactions, Alerts Substance Reaction Severity [...] B adult vaccine 06/14/02 Recorded 1Result Comment: [id number] 2Result Comment: [id number] 3Result Comment: [07/08/2017] 12133-211-00 4Admin Note: [facility] 5Admin Note: [facility] [...] 11 Refills, Maintenance, 10/31/20 14:14:00 EDT, Cream, [facility] #[id number], Partial fill upon patient request if the [...] 02/12/21 12:56:00 EDT, Route to Pharmacy Electronically, [facility] #[id number], 165, cm, 01/11/21 14:05:00 EDT, Height, 127, [...] PMR, history of smoking fax to : [phone], 04... Start Date: 10/26/20 Status: Ordered Disposable [...] Gm, 3 Refills, Maintenance, 06/22/20 14:58:00 EST, [facility] #[id number], 165, cm, 06/07/20 13:52:00 EST, Height, 127, [...] mL, 5 Refills, Maintenance, 10/01/18 10:08:42 EST, [place], 2 sprays Nares, Both 2 times a [...] 08/02/20 16:13:00 EST, Route to Pharmacy Electronically, [facility] #[id number], D/C RX ON FILE FOR ABRAM, 165, [...] 3 Refills, Maintenance, 02/25/21 10:31:00 EDT, Tablet, [facility] #[id number], Partial fill upon patient request if the prescription is for a schedule II opioid drug., 165, cm, 01/11/21 14:... Start Date: 02/25/21 Status: Ordered methenamine hippurate 1 gm oral tablet 1 tablet = 1 Gm, By Mouth, 2 times a day, # 60 tablet, 1 Refills, Maintenance, 07/12/20 13:56:00 EST, [facility] #[id number], Partial fill upon patient request if the prescription is for a schedule II opioid drug., 165, cm, 07/11/20 15:24:00 EST,... Start Date: 07/12/20 Stop Date: 07/05/21 Status: Ordered Metoprolol Tartrate 25 mg oral tablet 1 tablet, By Mouth, 2 times a day, # 60 tablet, 2 Refills, Maintenance, 03/07/21 10:08:00 EDT, [facility] #[id number], 165, cm, 02/28/21 14:22:00 EDT, Height, 127, kg, 02/03/20 14:39:00 EDT, DryWeight Start Date: 03/07/21 Status: Ordered Mitigare 0.6 mg oral capsule 1 capsule, By Mouth, Daily, # 30 capsule, 11 Refills, Maintenance, 12/31/20 16:51:00 EDT, [facility] #[id number], 165, cm, 11/19/20 11:32:00 EDT, Height, 127, [...] 0 Refills, Maintenance, 06/18/20 16:57:00 EST, Patch, [facility] #[id number], Partial fill upon patient request, 165, cm, 06/07/20 13:52:00 EST, Height, 127, kg, 02/03/20 14:39:00 EDT, Dry Weight Start Date: 06/18/20 Stop Date: 07/30/20 Status: Ordered NuLYTELY with Flavor Packs oral powder for reconstitution See Instructions, Drink 240mL every 15-20 minutes until first half is gone. Repeat 6 hours prior toprocedure., # 4,000 mL, 0 Refills, Maintenance, 06/28/20 17:09:00 EST, [facility] #[id number],Partial fill upon patient request if the prescript... Start Date: 06/28/20 Status: Ordered oxyCODONE 10 mg oral tablet 1 tablet = 10 mg, By Mouth, Every 8 hours, DX Z79.891 G89.29 M47.816 OK TO FILL LESS THAN PRESCRIBED AMOUNT, # 84 tablet, 0 Refills, Maintenance, 02/25/21 12:52:00 EDT, Tablet, [facility] #[id number], 02/26/21, 165, cm, 01/11/21 14:05:00 EDT, He... Start Date: 02/25/21 Stop Date: 03/25/21 Status: Ordered penicillin V potassium 250 mg oral tablet 1 tablet = 250 mg, By Mouth, 2 times a day, Cellulitis prophylaxis, # 60 tablet, 11 Refills, Maintenance, 10/30/20 12:09:00 EDT, [facility] #[id number], 165, cm, 10/19/20 8:59:00 EDT, Height, 127, kg, 02/03/20 14:39:00 EDT, Dry Weight Start Date: 10/30/20 Status: Ordered predniSONE 5 mg oral tablet 1 tablet = 5 mg, By Mouth, Daily, # 30 tablet, 0 Refills, Maintenance, 01/11/21 14:20:00 EDT, Tablet, [facility] #[id number], Partial fill upon patient request if the [...] 5 Refills, Maintenance, 04/30/20 15:13:00 EDT, Tablet, [facility] #[id number], 165, cm, 04/30/20 14:30:00 EDT, Height, 127, kg, 02/03/20 14:39:00 EDT, Dry Weight Start Date: 04/30/20 Status: Ordered rosuvastatin 10 mg oral tablet 1 tablet = 10 mg, By Mouth, Daily, # 90 tablet, 3 Refills, Maintenance, 05/03/20 16:35:00 EDT, Tablet, [facility] #[id number], d/c rx for capsules, 165, cm, 04/30/20 14:30:00 EDT, Height, 127, kg, 02/03/20 14:39:00 EDT, Dry Weight Start Date: 05/03/20 Status: Ordered Ventolin HFA 108 mcg/inh inhalation aerosol with adapter 2 puffs, Inhalation, Every 4 hours, PRN Wheezing/Shortness of Breath, # 1 each, 5 Refills, Soft Stop, 11/08/20 8:46:00 EDT, [facility] #[id number], 165, cm, 10/19/20 8:59:00 EDT, Height, 127, kg, 02/03/20 14:39:00 EDT, Dry Weight Start Date: 11/08/20 Status: Ordered warfarin 2.5 mg oral tablet See Instructions, take 2.5mg thu sat subjet to change based on INR per MD, # 90 each, 3 Refills, Maintenance, 02/11/21 10:38:00 EDT, Tablet, [facility] #[id number], PLEASE GIVE THIS IN COMBINATION WITH 5MG TABLETS;, 165, cm, 01/11/21... 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
--- OUTSIDE RECORDS SUMMARY | 2024-01-02 21:29 | XMS_ITS | Continuity of Care Document ---
Author Organization [facility] Robin Jane Nolberto lt Address [address] [place] [address]- Care Team Providers Care Research Support Specialist Name Role Phone Radha GRIDER, Fuentes Kenny Primary Care Physician [facility] Date[facility]s): 04[facility]18[facility]20 - 05/18/20 [facility] Adult [address] [place] [address]- [facility] Allergies, Adverse Reactions, Alerts Substance Reaction [...] H1N1, inactive(oldterm) 8 05/08/11 Given 1Result Comment: [id number] 2Result Comment: [id number] 3Result Comment: [07/08/2017] [id number] 4Admin Note: [facility] 5Admin Note: [facility] [...] 12/06/19 9:16:00 EDT, Route to Pharmacy Electronically, [facility] #[id number], please schedule appt for further refills, 162, cm, 09/21/19 12:01:00 EST, [place]ie... Start Date: 12/06/19 Status: Ordered clindamycin 150 mg oral capsule 2 capsule = 300 mg, By Mouth, Every 8 hours, for 10 days, take with an over the counter probiotic, # 60 capsule, 0 Refills, Acute 05/26/20 15:06:00 EDT, 05/16/20 15:06:00 EDT, Capsule, [facility] #[id number], 165, cm, 05/16/20 14:15:00 EDT, [place]... Start Date: 05/16/20 Stop Date: 05/26/20 Status: Ordered colchicine 0.6 mg oral tablet See Instructions, take 1 tablet by mouth once daily if needed for PSEUDOGOUT pain, # 30 tablet, Refills 5, Tot. Refills 5, Soft Stop, 01/05/20 8:41:00 EDT, Instructions Replace Required Details, Route to Pharmacy Electronically, [facility] #... Start Date: 01/05/20 Status: Ordered [...] Gm, 1 Refills, Maintenance, 12/20/19 16:30:00 EDT, [facility] #[id number], 162, cm, 09/21/19 12:01:00 EST, Height, 116.4, [...] mL, 5 Refills, Maintenance, 10/01/18 10:08:42 EST, [place], 2 sprays Nares, Both 2 times a [...] 03/22/20 16:34:00 EDT, Route to Pharmacy Electronically, [facility] #[id number], 165, cm, 02/02/2014:39:00 EDT, Height, 127, kg, [...] 0 Refills, Maintenance, 04/23/20 12:56:00 EDT, Tablet, [facility] #[id number], 04/24/20, 165, cm, 02/03/20 14:39:00 EDT, He... [...] 5 Refills, Maintenance, 04/30/20 15:13:00 EDT, Tablet, [facility] #[id number], 165, cm, 04/30/20 14:30:00 EDT, Height, 127, kg, 02/03/20 14:39:00 EDT, Dry Weight Start Date: 04/30/20 Status: Ordered rosuvastatin 10 mg oral tablet 1 tablet = 10 mg, By Mouth, Daily, # 90 tablet, 3 Refills, Maintenance, 05/03/20 16:35:00 EDT, Tablet, [facility] #[id number], d/c rx for capsules, 165, cm, 04/30/20 14:30:00 EDT, Height, 127, kg, 02/03/20 14:39:00 EDT, Dry Weight Start Date: 05/03/20 Status: Ordered Ventolin HFA 108 mcg/inh inhalation aerosol with adapter 2 puffs, Inhalation, Every 4 hours, PRN Wheezing/Shortness of Breath, # 1 each, 11 Refills, Soft Stop, 01/19/20 11:46:00 EDT, [facility] #[id number], 165, cm, 01/16/20 6:17:00 EDT, Height, 128.1, kg, 01/16/20 6:17:00 EDT, Dry Weight Start Date: 01/19/20 Status: Ordered warfarin 5 mg oral tablet 1 tablet = 5 mg, By Mouth, Daily, dosing subject to change pending inr lab values, # 30 tablet, 5 Refills, Maintenance, 02/15/20 13:21:00 EDT, Tablet, [facility] #[id number], 165, cm, 02/03/20 14:39:00 EDT, Height, 127, [...]
--- OUTSIDE RECORDS SUMMARY | 2024-01-02 21:29 | XMS_ITS | Continuity of Care Document ---
Author Organization [facility] Address [address] [place] [address]- Care Team Providers Care Training Lead Name Role Phone Eulogio Nickerson MD Primary Care Physician [phone] Encounter [facility] ACCT R [id number] Date(s): 09/03/21 - 10/03/21 [facility] [address] [place] [address]- Attending Physician: AdmDesire andre Admitting Physician: Admtr, [id number] Referring Physician: Admtr, [id number] Allergies, Adverse Reactions, Alerts Substance Reaction Severity Status Adhesive Bandage Active Dust copd exac/sinus congestion A ctive Immunizations Given and Recorded Vaccine Date Status Refusal Reason SARS-CoV-2 mRNA (ihezmch-xkox-chimr) vax 08/30/21 Recorded influenza virus vaccine, inactivated [...] B adult vaccine 06/14/02 Recorded 1Result Comment: [id number] 2Result Comment: [id number] 3Result Comment: [id number] 4Result Comment: [07/08/2017] [id number] 5Admin Note: [facility] 6Admin Note: [facility] [...] 8.5 Gm, 5 Refills, 05/29/21 17:13:00 EDT, [facility] #[id number], 17, INHALE 2 PUFFS BY MOUTH EVERY 4 HOURS NEEDED FOR WHEEZING OR SHORTNE... Start Date: 05/29/21 Status: Ordered calcipotriene 0.005% topical cream 1 application, Topically, 2 times a day, # 60 Gm, 11 Refills, Maintenance, 10/31/20 14:14:00 EDT, Cream, [facility] #[id number], Partial fill upon patient request if the prescription is for a schedule II opioid drug., 1 application Topically 2 ti... Start Date: 10/31/20 Status: Ordered chlorthalidone 25 mg oral tablet 1, tablet, By Mouth, Daily, # 90 tablet, Refills 3, Route to Pharmacy Electronically, [facility], 165, cm, 06/25/21 11:35:00 EST, Height, [...] 11 Refills, Maintenance, 06/25/21 12:00:00 EST, Capsule, [facility], Partial fill upon patient request if [...] Gm, 3 Refills, Maintenance, 06/22/20 14:58:00 EST, [facility] #[id number], 165, cm, 06/07/20 13:52:00 EST, Height, 127, [...] Pharmacy Electronically, [facility], [place]... Start Date: 09/05/21 Status: Ordered HydrOXYzine PRn , rare use, 0 Refills, Maintenance, 04/30/20 15:04:00 EDT Start Date: 04/30/20 Status: Ordered ipratropium nasal 21 mcg/inh spray 2 sprays, Nares, Both, 2 times a day, # 30 mL, 5 Refills, Maintenance, 10/01/18 10:08:42 EST, [place], 2 sprays Nares, Both 2 times a [...] Pharmacy Electronically, [facility], 165, cm, 06/25/21 11:35:00 EST, Height, [...] tablet, 6Refills, Maintenance, 05/21/21 11:19:00 EDT, Tablet, [facility], Partial fill upon patient request if the prescription is for a schedule II... Start Date: 05/21/21 Status: Ordered methenamine hippurate 1 gm oral tablet 1 tablet = 1 Gm, By Mouth, 2 times a day, # 60 tablet, 11 Refills, Maintenance, 07/05/21 14:00:00 EST, [facility], Partial fill upon patient request if the prescription is for a schedule II opioid drug., 165, cm, 02/28/21 14:22:00 EDT, Height,... Start Date: 07/05/21 Status: Ordered Mitigare 0.6 mg oral capsule 1 capsule, By Mouth, Daily, # 30 capsule, 11 Refills, Maintenance, 12/31/20 16:51:00 EDT, [facility] #[id number], 165, cm, 11/19/20 11:32:00 EDT, Height, 127, kg, 02/03/20 14:39:00 EDT, Dry Weight Start Date: 12/31/20 Status: Ordered penicillin V potassium 250 mg oral tablet 1 tablet = 250 mg, By Mouth, 2 times a day, Cellulitis prophylaxis, # 60 tablet, 11 Refills, Maintenance, 10/30/20 12:09:00 EDT, [facility] #[id number], 165, cm, 10/19/20 8:59:00 EDT, Height, 127, kg, 02/03/20 14:39:00 EDT, Dry Weight Start Date: 10/30/20 Status: Ordered propranolol 20 mg oral tablet 20 mg, 1, tablet, By Mouth, 2 times a day, Stop metoprolol, # 60 tablet, Refills 5, Tot. Refills 5,Maintenance, 09/05/21 6:13:00 EST, Route to Pharmacy Electronically, [facility], Partial fill upon patient request if the prescription is for a... Start Date: 09/05/21 Status: Ordered risperiDONE 1 mg oral tablet take 1 tablet by mouth twice a day Start Date: 05/23/19 Status: Ordered rOPINIRole 0.5 mg oral tablet 1 tablet, By Mouth, 3 times a day, # 90 tablet, 3 Refills, [facility], 165, cm, 06/25/21 11:35:00 EST, Height, 127, kg, 02/03/20 14:39:00 EDT, Dry Weight Start Date: 07/09/21 Status: Ordered rosuvastatin 10 mg oral tablet 1 tablet = 10 mg, By Mouth, Daily, # 90 tablet, 1 Refills, Maintenance, 05/20/21 15:53:00 EDT, Tablet, [facility], d/c rx for capsules, 165, cm, [...] 6 Refills, Maintenance, 06/12/21 17:09:00 EST, Tablet, [facility], Dosing Subject To Change per INR Result per MD,165, cm, 05/21/21 10:54:00 EDT, Height, 127, kg, 07... Start Date: 06/12/21 Status: Ordered warfarin 5 mg oral tablet See Instructions, Dosing Subject To Change Per INR Result per MD, # 30 each, 6 Refills, Maintenance, 06/12/21 17:05:00 EST, Tablet, [facility], PLEASE GIVE BOTH 5MG TABLETS AND [...]
--- OUTSIDE RECORDS SUMMARY | 2024-01-02 21:29 | XMS_ITS | Continuity of Care Document ---
Author Organization [facility] Robin Jane Nolberto Address [address] [place] [address]- Care Team Providers Care Campground Manager Name Role Phone Kyle Ahumada DO Primary Care Physician Encounter [facility] Date(s): 08/15/23 - 09/14/[address] [facility] Robin Bolañosley Adult [address] [place] [address]- Allergies, Adverse Reactions, Alerts Substance Reaction Severity [...] vaccine, inactivated 05/10/07 Jarrett rded SARS-CoV-2 mRNA (kecjuhj-gwqi-qakuv) vax 08/30/21 Recorded SARS-CoV-2 (COVID-19) mRNA BNT-162b2 vac 01/02/21 Recorded SARS-CoV-2 (COVID-19) mRNA BNT-162b2 vac 12/02/20 Recorded Fluvirin (oldterm) 10 03/22/15 Given Fluzone Preservative-Free (oldterm) 11 03/12/12 Gi octavio pneumococcal 23-valent vaccine 10/08/11 Given tetanus/diphtheria/pertussis, acel(Tdap) 09/08/11 Given tetanus/diphtheria/pertussis, acel(Tdap) 12/17/06 Recorded influ virus vac, H1N1, inactive(oldterm) 12 05/08/11 Given hepatitis B adult vaccine 06/14/02 Recorded 1Result Comment: PCV 20 [facility]#[id number] 2Result Comment: Flu [facility]#[id number] 3Result Comment: [id number] 4Result Comment: [id number] 5Result Comment: [id number] 6Result Comment: [id number] 7Result Comment: [07/08/2017] [id number] 8Admin Note: [facility] 9Admin Note: [facility] 9-13 10Admin Note: Given at [facility] 11Admin Note: 03-11-12 GIVEN AT [facility] 12Admin Note: rcvd elsewhere Medications acetaminophen 325 mg oral tablet 2, tablet, By Mouth, Every 6 hours, PRN, # 100 tablet, Refills 5, Maintenance, NEEDED FOR MODERATE PAIN (VIAL), 09/14/23 15:41:00 EST, Route to Pharmacy Electronically, [facility], 160, cm, 07/07/23 15:02:00 EST, Height, 112.4, kg, 06/24/23... Start Date: 09/14/23 Status: Ordered Albuterol (Eqv-ProAir HFA) 90 mcg/inh inhalation aerosol 2 puffs, Inhalation, Every 4 hours, PRN NEEDED FOR WHEEZING OR FOR SHORTNESS OF BREATH (BULK), #8.5 Gm, 5 Refills, Maintenance, 07/25/23 11:45:00 EST, [facility], 17, INHALE 2 PUFFS BY MOUTH EVERY 4 HOURS NEEDED FOR WHEEZING OR FOR SHOR... Start Date: 07/25/23 Status: Ordered cloNIDine 0.1 mg oral tablet 1, tablet, By Mouth, 2 times a day, PRN, ANXIETY (VIAL., # 56 tablet, Refills 2, Maintenance, NEEDED, 07/25/23 11:44:00 EST, Route to Pharmacy Electronically, [facility], 160, cm, 07/07/2315:02:00 EST, Height, 112.4, kg, 06/24/23 17:38:00... Start Date: 07/25/23 Status: Ordered cyclobenzaprine 5 mg oral tablet 1 tablet, By Mouth, 3 times a day, PRN NEEDED, SPASM (VIAL., # 90 tablet, 3 Refills, Maintenance, 08/19/23 10:07:00 EST, [facility], 160, cm, 07/07/23 15:02:00 EST, Height, 112.4, kg, 06/24/23 17:38:00 EST, Dry Weight Start Date: 08/19/23 Status: Ordered docusate sodium 100 mg oral capsule 100 mg, 1, capsule, By Mouth, 2 times a day, hold for loose stool, # 180 capsule, Refills 3, Tot. Refills 3, Maintenance, 03/13/23 16:56:00 EDT, Route to Pharmacy Electronically, [facility], Partial fill upon patient request if the prescriptio... Start Date: 03/13/23 Stop Date: 04/12/23 Status: Ordered duloxetine 20 mg oral enteric coated capsule 2 capsule = 40 mg, By Mouth, Daily at bedtime, # 60 capsule, 11 Refills, Maintenance, 06/25/21 12:00:00 EST, Capsule, [facility], Partial fill upon patient request [...] Required Details, [facility], 160, cm, 07/07/23 15:02:00 EST, Height,... Start Date: 07/28/23 Status: Ordered furosemide 40 mg oral tablet 40 mg, 1, tablet, By Mouth, Daily, # 90 tablet, Refills 1, Tot. Refills 1, Maintenance, 03/02/23 18:12:00 EDT, Route to Pharmacy Electronically, [facility], Partial fill upon patient request if the prescription is for a schedule II opioid drug... Start Date: 03/02/23 Status: Ordered gabapentin 300 mg oral capsule 300 mg, 1, capsule, By Mouth, 3 times a day, # 90 capsule, Refills 2, Tot. Refills 2, Maintenance, 09/09/23 17:17:00 EST, Route to Pharmacy Electronically, [facility], Partial fill upon patient request if [...] Refills, Maintenance, 08/11/23 7:46:00 EST, [facility], 30, INSTILL 2 SPRAYS IN [...] 07/01/23 14:32:00 EST, Route to Pharmacy Electronically, [facility], 160, cm, 06/26/23 11:21:00 EST, Height, 112.4, kg, 06/24/23 17:38:00 EST, Dry Weight Start Date: 07/01/23 Status: Ordered metFORMIN 500 mg oral tablet 1 tablet = 500 mg, By Mouth, 2 times a day, # 60 tablet, 5 Refills, Maintenance, 07/07/23 15:26:00 EST, Tablet, [facility], Partial fill upon patient request if the prescription is for a schedule II opioid drug., 160, cm, 07/07/23 15:02:00 EST... Start Date: 07/07/23 Stop Date: 01/03/24 Status: Ordered nicotine 21 mg/24 hr transdermal film, extended release 1 patch, Topically, Daily, # 28 patch, 3 Refills, Maintenance, 09/14/23 15:41:00 EST, [facility], 28, APPLY 1 PATCH TOPICALLY DAILY, [...] tablet, 5 Refills, Maintenance, 08/19/23 10:06:00 EST, [facility], 160, cm, 07/07/23 15:02:00 EST, Height, 112.4, kg, 06/24/23 17:38:00 EST,Dry Weight Start Date: 08/19/23 Status: Ordered rOPINIRole 0.5 mg oral tablet 1 tablet, By Mouth, 3 times a day, ^1R1,1R3,1R4., # 90 tablet, 5 Refills, Maintenance, 05/09/23 20:56:00 EDT, [facility], 160, cm, 04/02/23 12:45:00 EDT, Height, 98.8, kg, 07/17/22 8:58:00 EST, Dry Weight Start Date: 05/09/23 Status: Ordered rosuvastatin 10 mg oral tablet 1 tablet, By Mouth, Daily, ^1R1., # 30 tablet, 5 Refills, Maintenance, 07/01/23 14:33:00 EST, [facility], 160, cm, 06/26/23 11:21:00 EST, Height, 112.4, kg, 06/24/23 17:38:00 EST, Dry Weight Start Date: 07/01/23 Status: Ordered Symbicort 160mcg/4.5mcg Inhaler 2, puffs, Inhalation, 2 times a day, # 10.2 Gm, Refills 11, Tot. Refills 11, Maintenance, 06/03/23 11:47:00 EST, Aerosol, Route to Pharmacy Electronically, NCPDP_[id number], [facility], 160, cm, 06/03/23 11:30:00 EST, Height, 98.8, kg, ... 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 current use of opiate [...] Member Role: Primary Care Nurse Address: Address: [address] [place] [address] [place] [address]- [place] Name: Mraley Alejo RN Position: S RN Member Role: Primary Care Nurse Name: Rashi Dewitt RN Position: [facility] RN Member Role: Primary Care Nurse Name: Alma Delia Fonseca PharmD Position: [facility] Associate Professional Member Role: Lifetime Consulting Provider Address: Address: [address] [place] [address] [place] [address]- [place] Name: Yolis Mattson RN Position: S RN Member Role: Primary Care Nurse Name: Priscila Garzon RN Position: S RN Member Role: Primary Care Nurse Name: Kyle Ahumada DO Position: [facility] Physician - Primary Care Member Role: PCP Address: Address: [address] [place] [address]- [place] Name: Renea aMrt RN Position: S RN Member Role: Primary Care Nurse Care Team Related Persons Name: FAUZIA JANSEN Address: home [address] [place] [address] Name: AURELIA SHETH Address: home [address] [place] [address] Name: BRE OSORIO Address: home [address] [place] [address]
--- OUTSIDE RECORDS SUMMARY | 2024-01-02 21:29 | XMS_ITS | Continuity of Care Document ---
Author Organization [facility] Address [address] [place] [address]- Care Team Providers Care Tour Bus Driver Name Role Phone Eulogio Nickerson MD Primary Care Physician [phone] [place] [facility] [place]07[place]21 [place] 12/08/21 [facility] [place] [address]- Attending Physician: Not on Staff, Attending MD Referring Physician: Eulogio Nickerson MD Allergies, Adverse Reactions, Alerts Substance Reaction Severity Status Adhesive Bandage Active Dust copd exac/sinus congestion A ctive Immunizations Given and Recorded Vaccine Date Status Refusal Reason SARS-CoV-2 mRNA (tpskvwo-hsbv-heete) vax 08/30/21 Recorded influenza virus vaccine, inactivated [...] B adult vaccine 06/14/02 Recorded 1Result Comment: [id number] 2Result Comment: [id number] 3Result Comment: [id number] 4Result Comment: [07/08/2017] [id number] 5Admin Note: [facility] 6Admin Note: [facility] [...] 8.5 Gm, 5 Refills, 05/29/21 17:13:00 EDT, [id number], 17, INHALE 2 PUFFS BY MOUTH EVERY 4 HOURS NEEDED FOR WHEEZING OR SHORTNE... Start Date: 05/29/21 Status: Ordered calcipotriene 0.005% topical cream 1 application, Topically, 2 times a day, # 60 Gm, 11 Refills, Maintenance, 11/15/21 11:54:00 EDT, Cream, [facility], Partial fill upon patient request if the prescription is for a schedule IIopioid drug., 1 application Topically 2 times a day... Start Date: 11/15/21 Status: Ordered colchicine 0.6 mg oral tablet 0.6 mg, 1, tablet, By Mouth, Daily, # 30 tablet, Refills 11, Tot. Refills 11, Maintenance, 227:00:00 EDT, Route to Pharmacy Electronically, [facility], Partial fill upon patient request if the prescription is for a schedule II opioid drKatie. Start Date: 10/30/21 Status: Ordered cyclobenzaprine 10 mg oral tablet See Instructions, PRN, 1 tablet By Mouth 3 times a day as needed, # 20 tablet, Refills 0, Tot. Refills 0, Maintenance, for spasm, 11/08/21 10:23:00 EDT, Instructions Replace Required Details, Route to Pharmacy Electronically, [facility] #[id number]... Start Date: 11/08/21 Status: Ordered digoxin [...] 11 Refills, Maintenance, 06/25/21 12:00:00 EST, Capsule, [facility], Partial fill upon patient request if [...] 5 Refills, Maintenance, 11/18/21 13:49:00 EDT, Tablet, [facility], Partial fill upon patient request if the prescription is for a schedule II opioid drug., 165madi, ... Start Date: 11/18/21 Status: Ordered lamotrigine 200 mg oral tablet 1 tablet = 200 mg, By Mouth, Daily at bedtime, 0 Refills, Maintenance, 02/19/18 15:03:43 EDT Start Date: 02/19/18 Status: Ordered loratadine 10 mg oral tablet See Instructions, TAKE 1 TABLET BY MOUTH ONCE A DAY, # 90 tablet, Refills 1, Instructions Replace Required Details, Route to Pharmacy Electronically, [facility], 165, cm, 06/25/21 11:35:00 EST, [...] 03/05/22 16:36:00 EDT, 12/03/21 16:35:00 EDT, [place]um, [facility][id number], Partial fill uponpatient request if the prescription is for a schedu... Start Date: 12/03/21 Stop Date: 03/05/22 Status: Ordered NuLYTELY with Flavor Packs oral powder for reconstitution 240 mL, By Mouth, Every 10 minutes, # 1 each, 0 Refills, Maintenance, 10/25/21 10:39:00 EDT, REC Powder, [facility], Partial fill upon patient request if the prescription is for a schedule IIopioid drug., 240 mL By Mouth Every 10 minutes, 165... Start Date: 10/25/21 Status: Ordered penicillin V potassium 250 mg oral tablet 1 tablet, By Mouth, 2 times a day, CELLULITIS PROPHYLAXIS., # 60 tablet, 6 Refills, [facility], 165, cm, 11/08/21 10:02:00 EDT, Height, 127, kg, 02/03/20 14:39:00 EDT, Dry Weight Start Date: 11/15/21 Status: Ordered rOPINIRole 0.5 mg oral tablet 1 tablet, By Mouth, 3 times a day, # 90 tablet, 5 Refills, 11/08/21 9:01:00 EDT, [facility], 165, cm, 11/04/21 8:42:00 EDT, Height, 127, kg, 02/03/20 14:39:00 EDT, Dry Weight Start Date: 11/08/21 Status: Ordered rosuvastatin 10 mg oral tablet See Instructions, TAKE 1 TABLET BY MOUTH DAILY, # 90 tablet, 1 Refills, Maintenance, 10/18/21 21:30:00 EDT, [facility], 165, cm, 09/04/21 14:01:00 EST, Height, 127, kg, 02/03/20 14:39:00 EDT,Dry Weight Start Date: 10/18/21 Status: Ordered warfarin 2.5 mg oral tablet See Instructions, Dosing Subject To Change per INR Result per MD, # 30 each, 6 Refills, Maintenance, 06/12/21 17:09:00 EST, Tablet, [facility], Dosing Subject To Change per INR Result per MD,165, cm, 05/21/21 10:54:00 EDT, Height, 127, kg, 07... Start Date: 06/12/21 Status: Ordered warfarin 5 mg oral tablet See Instructions, Dosing Subject To Change Per INR Result per MD, # 30 each, 6 Refills, Maintenance, 06/12/21 17:05:00 EST, Tablet, [facility], PLEASE GIVE BOTH 5MG TABLETS AND [...]
--- OUTSIDE RECORDS SUMMARY | 2024-01-02 21:29 | XMS_ITS | Continuity of Care Document ---
Author Organization [facility] Nolberto Address [address] [place] [address]- Care Team Providers Care Rn Anesthetist Name Role Phone Radha GRIDER, Fuentes Kenny Primary Care Physician [facility] Date(s): 04/09/21 - 05/09/21 [facility] Adult [address] [place] [address]- Allergies, Adverse Reactions, Alerts Substance Reaction Severity [...] B adult vaccine 06/14/02 Recorded 1Result Comment: [id number] 2Result Comment: [id number] 3Result Comment: [07/08/2017] [id number] 4Admin Note: [facility] 5Admin Note: [facility] [...] 11 Refills, Maintenance, 10/31/20 14:14:00 EDT, Cream, [facility] #[id number], Partial fill upon patient request if the [...] 04/09/21 14:32:00 EDT, Route to Pharmacy Electronically, [facility], 165, cm, 02/28/21 14:22:00 EDT, Height, [...] PMR, history of smoking fax to : [phone], 04... Start Date: 10/26/20 Status: Ordered Disposable [...] Gm, 3 Refills, Maintenance, 06/22/20 14:58:00 EST, [facility] #[id number], 165, cm, 06/07/20 13:52:00 EST, Height, 127, [...] mL, 5 Refills, Maintenance, 10/01/18 10:08:42 EST, [place], 2 sprays Nares, Both 2 times a [...] 08/02/20 16:13:00 EST, Route to Pharmacy Electronically, [facility][id number], D/C RX ON FILE FOR ABRAM, 165, [...] 3 Refills, Maintenance, 02/25/21 10:31:00 EDT, Tablet, [facility] #[id number], Partial fill upon patient request if the prescription is for a schedule II opioid drug., 165, cm, 01/11/21 14:... Start Date: 02/25/21 Status: Ordered methenamine hippurate 1 gm oral tablet 1 tablet = 1 Gm, By Mouth, 2 times a day, # 60 tablet, 1 Refills, Maintenance, 07/12/20 13:56:00 EST, [facility] #[id number], Partial fill upon patient request if the prescription is for a schedule II opioid drug., 165, cm, 07/11/20 15:24:00 EST,... Start Date: 07/12/20 Stop Date: 07/05/21 Status: Ordered Metoprolol Tartrate 25 mg oral tablet 1 tablet, By Mouth, 2 times a day, # 60 tablet, 2 Refills, Maintenance, 03/07/21 10:08:00 EDT, [facility] #[id number], 165, cm, 02/28/21 14:22:00 EDT, Height, 127, kg, 02/03/20 14:39:00 EDT, DryWeight Start Date: 03/07/21 Status: Ordered Mitigare 0.6 mg oral capsule 1 capsule, By Mouth, Daily, # 30 capsule, 11 Refills, Maintenance, 12/31/20 16:51:00 EDT, [facility][id number], 165, cm, 11/19/20 11:32:00 EDT, Height, 127, [...] 0 Refills, Maintenance, 04/11/21 9:00:00 EDT, Patch, [facility], Partial fill upon patient request, 165, cm, 02/28/21 14:22:00 EDT, Height, 127, kg, 02/03/20 14:39:00 EDT, Dry Weight Start Date: 04/11/21 Stop Date: 05/23/21 Status: Ordered NuLYTELY with Flavor Packs oral powder for reconstitution See Instructions, Drink 240mL every 15-20 minutes until first half is gone. Repeat 6 hours prior toprocedure., # 4,000 mL, 0 Refills, Maintenance, 06/28/20 17:09:00 EST, [facility][id number],Partial fill upon patient request if the prescript... Start Date: 06/28/20 Status: Ordered oxyCODONE 10 mg oral tablet 1 tablet = 10 mg, By Mouth, Every 8 hours, DX Z79.891 G89.29 M47.816 OK TO FILL LESS THAN PRESCRIBED AMOUNT, # 84 tablet, 0 Refills, Maintenance, 04/22/21 16:41:00 EDT, Tablet, [facility] #[id number], 165, cm, 02/28/21 14:22:00 EDT, Height, 127,... Start Date: 04/22/21 Stop Date: 05/20/21 Status: Ordered oxyCODONE 5 mg oral tablet 10 mg, 2, tablet, By Mouth, Every 8 hours, DX Z79.891 G89.29 M47.816 OK TO FILL LESS THAN PRESCRIBED AMOUNT, # 168 tablet, Refills 0, Tot. Refills 0, Maintenance, 03/25/21 16:45:00 EDT, Route to Pharmacy Electronically, [facility] #[id number], D... Start Date: 03/25/21 Stop Date: 04/22/21 Status: Ordered penicillin V potassium 250 mg oral tablet 1 tablet = 250 mg, By Mouth, 2 times a day, Cellulitis prophylaxis, # 60 tablet, 11 Refills, Maintenance, 10/30/20 12:09:00 EDT, [facility] #[id number], 165, cm, 10/19/20 8:59:00 EDT, Height, 127, kg, 02/03/20 14:39:00 EDT, Dry Weight Start Date: 10/30/20 Status: Ordered predniSONE 5 mg oral tablet 1 tablet = 5 mg, By Mouth, Daily, # 30 tablet, 0 Refills, Maintenance, 01/11/21 14:20:00 EDT, Tablet, [facility] #[id number], Partial fill upon patient request if the [...] 1 Refills, Maintenance, 04/09/21 14:31:00 EDT, Tablet, [facility], 165, cm, 02/28/21 14:22:00 EDT, Height, 127, kg, 02/03/20 14:39:00 EDT, Dry Weight Start Date: 04/09/21 Status: Ordered rosuvastatin 10 mg oral tablet 1 tablet = 10 mg, By Mouth, Daily, # 90 tablet, 3 Refills, Maintenance, 05/03/20 16:35:00 EDT, Tablet, [facility] #[id number], d/c rx for capsules, 165, cm, 04/30/20 14:30:00 EDT, Height, 127, kg, 02/03/20 14:39:00 EDT, Dry Weight Start Date: 05/03/20 Status: Ordered Ventolin HFA 108 mcg/inh inhalation aerosol with adapter 2 puffs, Inhalation, Every 4 hours, PRN Wheezing/Shortness of Breath, # 1 each, 5 Refills, Soft Stop, 11/08/20 8:46:00 EDT, [facility] #[id number], 165, cm, 10/19/20 8:59:00 EDT, Height, 127, kg, 02/03/20 14:39:00 EDT, Dry Weight Start Date: 11/08/20 Status: Ordered warfarin 2.5 mg oral tablet See Instructions, take 2.5mg sun tues thurs sat subjet to change based on INR per MD, # 90 each, 3 Refills, Maintenance, 02/11/21 10:38:00 EDT, Tablet, [facility] #[id number], PLEASE GIVE THIS IN COMBINATION WITH 5MG TABLETS;, 165, cm, 01/11/21... Start Date: 02/11/21 Status: Ordered warfarin 5 mg oral tablet 1 tablet = 5 mg, By Mouth, Daily, dosing subject to change pending inr lab values TAKE thu,# 90 tablet, 11 Refills, Maintenance, 02/11/21 10:42:00 EDT, Tablet, [facility] #[id number], PLEASE GIVE BOTH 5MG TABLETS AND 2.5MG [...]
--- OUTSIDE RECORDS SUMMARY | 2024-01-02 21:29 | XMS_ITS | Continuity of Care Document ---
Author Organization [facility] Nolberto lt Address [address] [place] [address]- Care Team Providers Care Signwriter Name Role Phone Krishan GRIDER, Eulogio Molina Primary Care Physician [place] [facility] [place] 10/03/22 - 11/02/22 [facility] Adult [address] [place] [address]- Allergies, Adverse Reactions, Alerts Substance Reaction Severity [...] vaccine, inactivated 05/10/07 Jarrett rded SARS-CoV-2 mRNA (uwrsgvc-epua-soinh) vax 08/30/21 Recorded SARS-CoV-2 (COVID-19) mRNA BNT-162b2 vac 01/02/21 Recorded SARS-CoV-2 (COVID-19) mRNA BNT-162b2 vac 12/02/20 Recorded Fluvirin (oldterm) 8 03/22/15 Given Fluzone Preservative-Free (oldterm) 9 03/12/12 Giv en pneumococcal 23-valent vaccine 10/08/11 Given tetanus/diphtheria/pertussis, acel(Tdap) 09/08/11 Given tetanus/diphtheria/pertussis, acel(Tdap) 12/17/06 Recorded influ virus vac, H1N1, inactive(oldterm) 10 05/08/11 Given hepatitis B adult vaccine 06/14/02 Recorded 1Result Comment: [id number] 2Result Comment: [id number] 3Result Comment: [id number] 4Result Comment: [id number] 5Result Comment: [07/08/2017] [id number] 6Admin Note: [facility] 7Admin Note: [facility] [...] Gm, 4 Refills, Maintenance, 09/08/22 14:55:00 EST, [facility], 30, INHALE 2 PUFFS BY MOUTH EVERY FOUR HOURS NEEDED FOR WHEEZING... Start Date: 09/08/22 Status: Ordered cloNIDine 0.1 mg oral tablet 1, tablet, By Mouth, 2 times a day, PRN, # 56 tablet, Refills 2, Maintenance, NEEDED FOR FOR ANXIETY (VIAL) ^VIAL, 10/03/22 11:23:00 EST, Route to Pharmacy Electronically, [facility], 160,cm, 09/09/22 14:31:00 EST, Height, 98.8, kg, 07/17/... Start Date: 10/03/22 Status: Ordered colchicine 0.6 mg oral tablet 1, tablet, By Mouth, Daily, ^1R1., # 30 tablet, Refills 11, Maintenance, 09/10/22 5:31:00 EST, Route to Pharmacy Electronically, [facility], 160, cm, 09/09/22 14:31:00 EST, Height, 98.8, kg, 07/17/22 8:58:00 EST, Dry Weight Start Date: 09/10/22 Status: Ordered docusate sodium 100 mg oral capsule 100 mg, 1, capsule, By Mouth, 2 times a day, hold for loose stool, # 60 capsule, Refills 0, Tot. Refills 0, Maintenance, 01/11/22 7:25:00 EDT, Route to Pharmacy Electronically, [facility], Partial fill upon patient request if the prescri... Start Date: 01/11/22 Stop Date: 02/10/22 Status: Ordered duloxetine 20 mg oral enteric coated capsule 2 capsule = 40 mg, By Mouth, Daily at bedtime, # 60 capsule, 11 Refills, Maintenance, 06/25/21 12:00:00 EST, Capsule, [facility], Partial fill upon patient [...] Acute 03/16/23 6:08:00 EDT, 10/14/22 6:08:00 EDT, [place], [facility] #[id number], Partial fill upon patient request if the [...] 5 Refills, Maintenance, 07/29/22 6:50:00 EST, Tablet, [facility], Partial fill upon patient request if [...] 63 tablet, 0 Refills, Maintenance, 10/14/22 6:07:00 EDLeslee Moody. Start Date: 10/14/22 Status: Ordered rOPINIRole 0.5 mg oral tablet See Instructions, TAKE 1 TABLET BY MOUTH THREE TIMES DAILY^1R1,1R3,1R4, # 90 tablet, 5 Refills, Maintenance, 07/24/22 23:41:00 EST, [facility], 160, cm, 07/18/22 11:39:00 EST, Height, 98.8, kg, 07/17/22 8:58:00 EST, Dry Weight Start Date: 07/24/22 Status: Ordered rosuvastatin 10 mg oral tablet 1 tablet, By Mouth, Daily, ^1R1., # 30 tablet, 5 Refills, Maintenance, 09/10/22 5:31:00 EST, [facility], 160, cm, 09/09/22 14:31:00 EST, Height, 98.8, kg, 07/17/22 8:58:00 EST, Dry Weight Start Date: 09/10/22 Status: Ordered Symbicort 80mcg/4.5mcg Inhaler See Instructions, INHALE 2 PUFFS BY MOUTH TWICE A DAY RINSE MOUTH AND THROAT AFTER USE, # 10.2 Gm, Refills 5, Maintenance, 07/30/22 21:16:00 EST, Instructions Replace Required Details, Route to Pharmacy Electronically, [id number], [facility]... Start Date: 07/30/22 Status: Ordered warfarin 1 mg oral tablet See Instructions, Take 1-10 tabs daily as directed by [facility]., # 150 tablet, 0 Refills, Maintenance, 07/18/22 8:55:00 EST, Tablet, [facility], Partial fill upon patient [...] Team Personnel Name: Sandra Wills NP Position: [facility] PCO Associate Professional Member Role: Primary Care Nurse Address: Address: [address] [place] [address] [place] [address]- [place] Name: Marley Alejo RN Position: [facility] RN Member Role: Primary Care Nurse Name: Eulogio Nickerson MD Position: [facility] Primary Care Physician Member Role: PCP Address: Address: [address] [place] [address]- [place] Name: Alma Delia Fonseca PharmD Position: [facility] Associate Professional Member Role: Lifetime Consulting Provider Address: Address: [address] [place] [address]- Name: Yolis Mattson RN Position: [facility] RN Member Role: Primary Care Nurse Name: Priscila Garzon RN Position: [facility] RN Member Role: Primary Care Nurse Name: Renea Mart RN Position: [facility] RN Member Role: Primary Care Nurse Care Team Related Persons Name: FAUZIA JANSEN Address: home [address] [place] [address] Name: AURELIA SHETH Address: home [address] [place] [address] Name: BRE OSORIO Address: home [address] [place] [address]
--- OUTSIDE RECORDS SUMMARY | 2024-01-02 21:30 | XMS_ITS | Continuity of Care Document ---
Author Organization [facility] Robin Jane Nolberto Address [address] [place] [id number]- Care Team Providers Care Roll Handler Name Role Phone Kyle Ahumada DO Primary Care Physician [facility]23 - 10/09/23 [facility] Buck Adult [address] [place] [address]- Allergies, Adverse Reactions, Alerts Substance Reaction Severity [...] vaccine, inactivated 05/10/07 Jarrett rded SARS-CoV-2 mRNA ([id number]-[id number]) vax 08/30/21 Recorded SARS-CoV-2 (COVID-19) mRNA BNT-162b2 vac 01/02/21 Recorded SARS-CoV-2 (COVID-19) mRNA BNT-162b2 vac 12/02/20 Recorded Fluvirin (oldterm) 10 03/22/15 Given Fluzone Preservative-Free (oldterm) 11 03/12/12 Gi octavio pneumococcal 23-valent vaccine 10/08/11 Given tetanus/diphtheria/pertussis, acel(Tdap) 09/08/11 Given tetanus/diphtheria/pertussis, acel(Tdap) 12/17/06 Recorded influ virus vac, H1N1, inactive(oldterm) 12 05/08/11 Given hepatitis B adult vaccine 06/14/02 Recorded 1Result Comment: PCV [address] [facility]#[id number] 2Result Comment: Flu [facility]#[id number] 3Result Comment: [id number] 4Result Comment: [id number] 5Result Comment: [id number] 6Result Comment: [id number] 7Result Comment: [07/08/2017] 10111-223-92 8Admin Note: [facility] 9Admin Note: [facility] 9-13 10Admin Note: Given at [facility] 11Admin Note: 03-11-12 GIVEN AT [facility] 12Admin Note: rcvd elsewhere Medications acetaminophen 325 mg oral tablet 2, tablet, By Mouth, Every 6 hours, PRN, # 100 tablet, Refills 5, Maintenance, NEEDED FOR MODERATE PAIN (VIAL), 09/14/23 15:41:00 EST, Route to Pharmacy Electronically, [facility], 160, cm, 07/07/23 15:02:00 EST, Height, 112.4, kg, 06/24/23... Start Date: 09/14/23 Status: Ordered Albuterol (Eqv-ProAir HFA) 90 mcg/inh inhalation aerosol 2 puffs, Inhalation, Every 4 hours, PRN NEEDED FOR WHEEZING OR FOR SHORTNESS OF BREATH (BULK), #8.5 Gm, 5 Refills, Maintenance, 07/25/23 11:45:00 EST, [facility], 17, INHALE 2 PUFFS BY MOUTH EVERY 4 HOURS NEEDED FOR WHEEZING OR FOR SHOR... Start Date: 07/25/23 Status: Ordered cloNIDine 0.1 mg oral tablet 1, tablet, By Mouth, 2 times a day, PRN, ANXIETY (VIAL., # 56 tablet, Refills 5, Maintenance, NEEDED, 10/07/23 15:53:00 EDT, Route to Pharmacy Electronically, [facility], 160, cm, 07/07/2315:02:00 EST, Height, 112.4, kg, 06/24/23 17:38:00... Start Date: 10/07/23 Status: Ordered cyclobenzaprine 5 mg oral tablet 1 tablet, By Mouth, 3 times a day, PRN NEEDED, SPASM (VIAL., # 90 tablet, 3 Refills, Maintenance, 08/19/23 10:07:00 EST, [facility], 160, cm, 07/07/23 15:02:00 EST, Height, 112.4, kg, 06/24/23 17:38:00 EST, Dry Weight Start Date: 08/19/23 Status: Ordered docusate sodium 100 mg oral capsule 100 mg, 1, capsule, By Mouth, 2 times a day, hold for loose stool, # 180 capsule, Refills 3, Tot. Refills 3, Maintenance, 03/13/23 16:56:00 EDT, [facility], Partial fill upon patient request [...] Replace Required Details, Route to Pharmacy Electronically, [facility], 160, cm, 07/07/23 15:02:00 EST, Height,... Start Date: 07/28/23 Status: Ordered furosemide 40 mg oral tablet 40 mg, 1, tablet, By Mouth, Daily, # 90 tablet, Refills 1, Tot. Refills 1, Maintenance, 03/02/23 18:12:00 EDT, Route to Pharmacy Electronically, [facility], Partial fill upon patient request if the prescription is for a schedule II opioid drug... Start Date: 03/02/23 Status: Ordered gabapentin 300 mg oral capsule 300 mg, 1, capsule, By Mouth, 3 times a day, # 90 capsule, Refills 2, Tot. Refills 2, Maintenance, 09/09/23 17:17:00 EST, Route to Pharmacy Electronically, [facility], Partial fill upon patient request if [...] Refills, Maintenance, 08/11/23 7:46:00 EST, [facility], 30, INSTILL 2 SPRAYS IN [...] 07/01/23 14:32:00 EST, [facility], 160, cm, 06/26/23 11:21:00 EST, Height, 112.4, kg, 06/24/23 17:38:00 EST, Dry Weight Start Date: 07/01/23 Status: Ordered metFORMIN 500 mg oral tablet 1 tablet = 500 mg, By Mouth, 2 times a day, # 60 tablet, 5 Refills, Maintenance, 07/07/23 15:26:00 EST, Tablet, [facility], Partial fill upon patient request if the prescription is for a schedule II opioid drug., 160, cm, 07/07/23 15:02:00 EST... Start Date: 07/07/23 Stop Date: 01/03/24 Status: Ordered nicotine 21 mg/24 hr transdermal film, extended release 1 patch, Topically, Daily, # 28 patch, 3 Refills, Maintenance, 09/14/23 15:41:00 EST, [facility], 28, APPLY 1 PATCH TOPICALLY [...] tablet, 5 Refills, Maintenance, 08/19/23 10:06:00 EST, [facility], [facility], cm, 07/07/23 15:02:00 EST, Height, 112.4, kg, 06/24/23 17:38:00 EST,Dry Weight Start Date: 08/19/23 Status: Ordered rOPINIRole 0.5 mg oral tablet 1 tablet, By Mouth, 3 times a day, ^1R1,1R3,1R4., # 90 tablet, 5 Refills, Maintenance, 05/09/23 20:56:00 EDT, [facility], 160, cm, 04/02/23 12:45:00 EDT, Height, 98.8, kg, 07/17/22 8:58:00 EST, Dry Weight Start Date: 05/09/23 Status: Ordered rosuvastatin 10 mg oral tablet 1 tablet, By Mouth, Daily, ^1R1., # 30 tablet, 5 Refills, Maintenance, 07/01/23 14:33:00 EST, [facility], 160, cm, 06/26/23 11:21:00 EST, Height, 112.4, kg, 06/24/23 17:38:00 EST, Dry Weight Start Date: 07/01/23 Status: Ordered Symbicort 160mcg/4.5mcg Inhaler 2, puffs, Inhalation, 2 times a day, # 10.2 Gm, Refills 11, Tot. Refills 11, Maintenance, 06/03/23 11:47:00 EST, Aerosol, Route to Pharmacy Electronically, NCPDP_[id number], [facility], 160, cm, 06/03/23 11:30:00 EST, Height, [...] 30 tablet, 5 Refills, Maintenance, 08/11/23 11:28:00 EST,[facility], 160, cm, 07/07/23 15:02:00 EST, Height, [...] Member Role: Primary Care Nurse Address: Address: [address] [place] [address] [place] [address]- [place] Name: Marley Alejo RN Position: [facility] RN Member Role: Primary Care Nurse Name: Rashi Dewitt RN Position: [facility] RN Member Role: Primary Care Nurse Name: Alma Delia Fonseca PharmD Position: [facility] Associate Professional Member Role: Lifetime Consulting Provider Address: Address: [address] [place] [address] [place] [address]- Name: Priscila Garzon RN Position: [facility] RN Member Role: Primary Care Nurse Name: Kyle Ahumada DO Position: [facility] Physician - Primary Care Member Role: PCP Address: Address: [address] [place] [address]- Name: Brittny COLBERT, Renea Position: [facility] RN Member Role: Primary Care Nurse Care Team Related Persons Name: FAUZIA JANSEN Address: home [address] [place] [address] Name: AURELIA SHETH Address: home [address] [place] [address] Name: BRE OSORIO Address: home [address] [place] [address]
--- OUTSIDE RECORDS SUMMARY | 2024-01-02 21:30 | XMS_ITS | Continuity of Care Document ---
Author Organization [facility] Robin Jane Nolberto Address [address] [place] [address]- Care Team Providers Care Ux Engineer Name Role Phone Kyle Ahumada DO Primary Care Physician [facility] - 12/27/23 [facility] Robin Bolañosley Adult [address] [place] [address]- Allergies, Adverse Reactions, Alerts Substance Reaction Severity [...] vaccine, inactivated 05/10/07 Jarrett rded SARS-CoV-2 mRNA ([id number]-[id number]-auocp) vax 08/30/21 Recorded SARS-CoV-2 (COVID-19) mRNA BNT-162b2 vac 01/02/21 Recorded SARS-CoV-2 (COVID-19) mRNA BNT-162b2 vac 12/02/20 Recorded Fluvirin (oldterm) 10 03/22/15 Given Fluzone Preservative-Free (oldterm) 11 03/12/12 Gi octavio pneumococcal 23-valent vaccine 10/08/11 Given tetanus/diphtheria/pertussis, acel(Tdap) 09/08/11 Given tetanus/diphtheria/pertussis, acel(Tdap) 12/17/06 Recorded influ virus vac, H1N1, inactive(oldterm) 12 05/08/11 Given hepatitis B adult vaccine 06/14/02 Recorded 1Result Comment: PCV 20 [facility]#[id number] 2Result Comment: Flu [facility]#[id number] 3Result Comment: [id number] 4Result Comment: [id number] 5Result Comment: [id number] 6Result Comment: [id number] 7Result Comment: [07/08/2017] [id number] 8Admin Note: [facility] 9Admin Note: [facility] 9-13 10Admin Note: Given at [facility] 11Admin Note: 03-11-12 GIVEN AT [facility] 12Admin Note: rcvd elsewhere Medications acetaminophen 325 mg oral tablet 2, tablet, By Mouth, Every 6 hours, PRN, # 100 tablet, Refills 5, Maintenance, NEEDED FOR MODERATE PAIN (VIAL), 09/14/23 15:41:00 EST, Route to Pharmacy Electronically, [facility], 160, cm, 07/07/23 15:02:00 EST, Height, 112.4, kg, 06/24/23... Start Date: 09/14/23 Status: Ordered Albuterol (Eqv-ProAir HFA) 90 mcg/inh inhalation aerosol 2 puffs, Inhalation, Every 4 hours, PRN NEEDED FOR WHEEZING OR FOR SHORTNESS OF BREATH (BULK), #8.5 Gm, 5 Refills, Maintenance, 12/25/23 11:38:00 EDT, [facility], 16, INHALE 2 PUFFS BY [...] 10/07/23 15:53:00 EDT, [facility], [facility], cm, 07/07/2315:02:00 EST, Height, 112.4, kg, 06/24/23 17:38:00... Start Date: 10/07/23 Status: Ordered docusate sodium 100 mg oral capsule 100 mg, 1, capsule, By Mouth, 2 times a day, hold for loose stool, # 180 capsule, Refills 3, Tot. Refills 3, Maintenance, 03/13/23 16:56:00 EDT, Route to Pharmacy Electronically, [facility], Partial fill upon patient request if the prescriptio... Start Date: 03/13/23 Stop Date: 04/12/23 Status: Ordered duloxetine 20 mg oral enteric coated capsule 2 capsule = 40 mg, By Mouth, Daily at bedtime, # 60 capsule, 11 Refills, Maintenance, 06/25/21 12:00:00 EST, Capsule, [facility], Partial fill upon patient request [...] Replace Required Details, Route to Pharmacy Electronically, [facility], 160, cm, 07/07/23 15:02:00 EST, Height,... Start Date: 07/28/23 Status: Ordered furosemide 40 mg oral tablet 40 mg, 1, tablet, By Mouth, Daily, # 90 tablet, Refills 1, Tot. Refills 1, Maintenance, 03/02/23 18:12:00 EDT, Route to Pharmacy Electronically, [facility], Partial fill upon patient request if the prescription is for a schedule II opioid drug... Start Date: 03/02/23 Status: Ordered gabapentin 300 mg oral capsule See Instructions, TAKE ONE CAPSULE BY MOUTH THREE TIMES A DAY ^1R1,1R3,1R4, # 90 capsule, Refills 2, Maintenance, 11/20/23 16:26:00 EDT, Instructions Replace Required Details, Route to Pharmacy Electronically, [facility], 160, cm, 11/12/23 13:... Start Date: [...] mL, 11 Refills, Maintenance, 08/11/23 7:46:00 EST, [facility], 30, INSTILL 2 SPRAYS IN [...] 12/02/23 3:01:00 EDT, [facility], [facility], 160, cm, 11/12/23 13:36:00 EDT, Height, 112.4, kg, 06/24/23 17:38:00 EST, Dry Weight Start Date: 12/02/23 Status: Ordered metFORMIN 500 mg oral tablet 1 tablet = 500 mg, By Mouth, 2 times a day, # 60 tablet, 5 Refills, Maintenance, 01/03/24 15:26:00 EDT, Tablet, [facility], Partial fill upon patient request if the prescription is for a schedule II opioid drug., 160, cm, 11/12/23 13:36:00 EDT... Start Date: 01/03/24 Stop Date: 07/01/24 Status: Ordered metFORMIN 500 mg oral tablet 1 tablet = 500 mg, By Mouth, 2 times a day, for 30 days, # 60 tablet, 5 Refills, Hard Stop 01/02/2415:26:00 EDT, 07/07/23 15:26:00 EST, [facility]t, [facility], Partial fill upon patient request if the prescription is for a schedule II opioid drug... Start Date: 07/07/23 Stop Date: 01/03/24 Status: Ordered nicotine 21 mg/24 hr transdermal film, extended release 1 patch, Topically, Daily, # 28 patch, 3 Refills, Maintenance, 09/14/23 15:41:00 EST, [facility], 28, APPLY 1 PATCH TOPICALLY DAILY, [...] tablet, 5 Refills, Maintenance, 08/19/23 10:06:00 EST, [facility], 160, cm, 07/07/23 15:02:00 EST, Height, 112.4, kg, 06/24/23 17:38:00 EST,Dry Weight Start Date: 08/19/23 Status: Ordered Rhinocort Allergy 32 mcg/inh nasal spray 2 sprays = 64 mcg, Nares, Both, Daily, # 8.43 mL, 5 Refills, Maintenance, 11/12/23 13:55:00 EDT, [place], [facility], Partial fill upon patient request if the prescription is for a schedule II opioid drug., 160, cm, 11/12/23 13:36:00 EDT, Height... Start Date: 11/12/23 Status: Ordered rOPINIRole 0.5 mg oral tablet 1 tablet, By Mouth, 3 times a day, ^1R1,1R3,1R4., # 90 tablet, 5 Refills, Maintenance, 10/11/23 20:09:00 EDT, [facility], 160, cm, 07/07/23 15:02:00 EST, Height, 112.4, kg, 06/24/23 17:38:00 EST, Dry Weight Start Date: 10/11/23 Status: Ordered rosuvastatin 10 mg oral tablet 1 tablet, By Mouth, Daily, ^1R1., # 30 tablet, 5 Refills, Maintenance, 12/02/23 3:01:00 EDT, [facility], 160, cm, 11/12/23 13:36:00 EDT, Height, 112.4, kg, 06/24/23 17:38:00 EST, Dry Weight Start Date: 12/02/23 Status: Ordered Symbicort 160mcg/4.5mcg Inhaler 2, puffs, Inhalation, 2 times a day, # 10.2 Gm, Refills 11, Tot. Refills 11, Maintenance, 06/03/23 11:47:00 EST, Aerosol, Route to Pharmacy Electronically, NCPDP_[id number], [facility], 160, cm, 06/03/23 11:30:00 EST, Height, 98.8, kg, ... Start Date: 06/03/23 Status: Ordered tiZANidine 4 mg oral capsule 1 capsule, By Mouth, 3 times a day, PRN NEEDED FOR SPASMS, CAN INCREASE TO 2 AT A TIME IF NEEDED(VIAL), # 90 capsule, 2 Refills, Maintenance, 12/26/23 22:28:00 EDT, [facility], 160, cm, 11/12/23 13:36:00 EDT, Height, [...] 30 tablet, 5 Refills, Maintenance, 10/26/23 10:04:00 EDT,[facility], 160, cm, 10/16/23 10:41:00 EDT, Height, [...] Confirmed Active Gastric banding status Confirmed Active nursing home current use of opiate analgesic Confirmed [...] Member Role: Primary Care Nurse Address: Address: [address] [place] [address] [place] [address]- Name: Marley Alejo RN Position: S RN Member Role: Primary Care Nurse Name: Rashi Dewitt RN Position: S RN Member Role: Primary Care Nurse Name: Alma Delia Fonseca PharmD Position: S Associate Professional Member Role: Lifetime Consulting Provider Address: Address: [address] [place] [address] [place] [address]- [place] Name: Priscila Garzon RN Position: S RN Member Role: Primary Care Nurse Name: Kyle Ahumada DO Position: [facility] Physician - Primary Care Member Role: PCP Address: Address: [address] [place] [address]- [place] Name: Renea Mart RN Position: S RN Member Role: Primary Care Nurse Care Team Related Persons Name: FAUZIA JANSEN Address: home [address] [place] [address] Name: AURELIA SHETH Address: home [address] [place] [address] Name: BRE OSORIO Address: home [address] [place] [address]
--- OUTSIDE RECORDS SUMMARY | 2024-01-02 21:30 | XMS_ITS | Continuity of Care Document ---
Author Organization [facility] Robin Jane Nolberto Address [address] [place] [address]- Care Team Providers Care Enforcement Safety Officer Name Role Phone Kyle Ahumada DO Primary Care Physician [facility] 10[facility]23 - 11/21/23 [facility] Robin Bolañosley Adult [address] [place] [address]- Allergies, Adverse Reactions, Alerts Substance Reaction Severity Status Adhesive Bandage Active Dust copd exac/sinus congestion A ctive Immunizations Given and Recorded Vaccine Date Status Refusal Reason pneumococcal 20-valent conjugate vaccine 1 06/03/23 Given influenza virus vaccine, inactivated 2 06/03/23 Gi octavio influenza virus vaccine, inactivated 3 05/05/22 Gi octavoi influenza virus vaccine, inactivated 4 06/25/21 Gi [...] vaccine, inactivated 05/10/07 Jarrett rded SARS-CoV-2 mRNA ([id number]-xfgl-myhgb) vax 08/30/21 Recorded SARS-CoV-2 (COVID-19) mRNA BNT-162b2 vac 01/02/21 Recorded SARS-CoV-2 (COVID-19) mRNA BNT-162b2 vac 12/02/20 Recorded Fluvirin (oldterm) 10 03/22/15 Given Fluzone Preservative-Free (oldterm) 11 03/12/12 Gi octavio pneumococcal 23-valent vaccine 10/08/11 Given tetanus/diphtheria/pertussis, acel(Tdap) 09/08/11 Given tetanus/diphtheria/pertussis, acel(Tdap) 12/17/06 Recorded influ virus vac, H1N1, inactive(oldterm) 12 05/08/11 Given hepatitis B adult vaccine 06/14/02 Recorded 1Result Comment: PCV 20 [facility]#[id number] 2Result Comment: Flu [facility]#[id number] 3Result Comment: [id number] 4Result Comment: [id number] 5Result Comment: [id number] 6Result Comment: [id number] 7Result Comment: [07/08/2017] [id number] 8Admin Note: [facility] 9Admin Note: [facility] 9-13 10Admin Note: Given at [facility] 11Admin Note: 03-11-12 GIVEN AT [facility] 12Admin Note: rcvd elsewhere Medications acetaminophen 325 mg oral tablet 2, tablet, By Mouth, Every 6 hours, PRN, # 100 tablet, Refills 5, Maintenance, NEEDED FOR MODERATE PAIN (VIAL), 09/14/23 15:41:00 EST, Route to Pharmacy Electronically, [facility], 160, cm, 07/07/23 15:02:00 EST, Height, 112.4, kg, 06/24/23... Start Date: 09/14/23 Status: Ordered Albuterol (Eqv-ProAir HFA) 90 mcg/inh inhalation aerosol 2 puffs, Inhalation, Every 4 hours, PRN NEEDED FOR WHEEZING OR FOR SHORTNESS OF BREATH (BULK), #8.5 Gm, 5 Refills, Maintenance, 07/25/23 11:45:00 EST, [facility], 17, INHALE 2 PUFFS BY MOUTH [...] 10/07/23 15:53:00 EDT, [facility], [facility], cm, 07/07/2315:02:00 EST, Height, 112.4, kg, 06/24/23 17:38:00... Start Date: 10/07/23 Status: Ordered docusate sodium 100 mg oral capsule 100 mg, 1, capsule, By Mouth, 2 times a day, hold for loose stool, # 180 capsule, Refills 3, Tot. Refills 3, Maintenance, 03/13/23 16:56:00 EDT, Route to Pharmacy Electronically, [facility], Partial fill upon patient request if the prescriptio... Start Date: 03/13/23 Stop Date: 04/12/23 Status: Ordered duloxetine 20 mg oral enteric coated capsule 2 capsule = 40 mg, By Mouth, Daily at bedtime, # 60 capsule, 11 Refills, Maintenance, 06/25/21 12:00:00 EST, Capsule, [facility], Partial fill upon patient request [...] Replace Required Details, [facility], 160, cm, 07/07/23 15:02:00 EST, Height,... Start Date: 07/28/23 Status: Ordered furosemide 40 mg oral tablet 40 mg, 1, tablet, By Mouth, Daily, # 90 tablet, Refills 1, Tot. Refills 1, Maintenance, 03/02/23 18:12:00 EDT, Route to Pharmacy Electronically, [facility], Partial fill upon patient request if the prescription is for a schedule II opioid drug... Start Date: 03/02/23 Status: Ordered gabapentin 300 mg oral capsule See Instructions, TAKE ONE CAPSULE BY MOUTH THREE TIMES A DAY ^1R1,1R3,1R4, # 90 capsule, Refills 2, Maintenance, 11/20/23 16:26:00 EDT, Instructions Replace Required Details, Route to Pharmacy Electronically, [facility], 160, cm, 11/12/23 13:... Start [...] mL, 11 Refills, Maintenance, 08/11/23 7:46:00 EST, [facility], 30, INSTILL 2 SPRAYS IN [...] 07/01/23 14:32:00 EST, Route to Pharmacy Electronically, [facility], 160, cm, 06/26/23 11:21:00 EST, Height, 112.4, kg, 06/24/23 17:38:00 EST, Dry Weight Start Date: 07/01/23 Status: Ordered metFORMIN 500 mg oral tablet 1 tablet = 500 mg, By Mouth, 2 times a day, # 60 tablet, 5 Refills, Maintenance, 07/07/23 15:26:00 EST, Tablet, [facility], Partial fill upon patient request if [...] tablet, 5 Refills, Maintenance, 08/19/23 10:06:00 EST, [facility], 160, cm, 07/07/23 15:02:00 EST, Height, 112.4, kg, 06/24/23 17:38:00 EST,Dry Weight Start Date: 08/19/23 Status: Ordered Rhinocort Allergy 32 mcg/inh nasal spray 2 sprays = 64 mcg, Nares, Both, Daily, # 8.43 mL, 5 Refills, Maintenance, 11/12/23 13:55:00 EDT, [place], [facility], Partial fill upon patient request if the prescription is for a schedule II opioid drug., 160, cm, 11/12/23 13:36:00 EDT, Height... Start Date: 11/12/23 Status: Ordered rOPINIRole 0.5 mg oral tablet 1 tablet, By Mouth, 3 times a day, ^1R1,1R3,1R4., # 90 tablet, 5 Refills, Maintenance, 10/11/23 20:09:00 EDT, [facility], 160, cm, 07/07/23 15:02:00 EST, Height, 112.4, kg, 06/24/23 17:38:00 EST, Dry Weight Start Date: 10/11/23 Status: Ordered rosuvastatin 10 mg oral tablet 1 tablet, By Mouth, Daily, ^1R1., # 30 tablet, 5 Refills, Maintenance, 07/01/23 14:33:00 EST, [facility], 160, cm, 06/26/23 11:21:00 EST, Height, 112.4, kg, 06/24/23 17:38:00 EST, Dry Weight Start Date: 07/01/23 Status: Ordered Symbicort 160mcg/4.5mcg Inhaler 2, puffs, Inhalation, 2 times a day, # 10.2 Gm, Refills 11, Tot. Refills 11, Maintenance, 06/03/23 11:47:00 EST, Aerosol, Route to Pharmacy Electronically, NCPDP_[id number], [facility], 160, cm, 06/03/23 11:30:00 EST, Height, 98.8, kg, ... Start Date: 06/03/23 Status: Ordered tiZANidine 4 mg oral capsule 1 capsule = 4 mg, By Mouth, 3 times a day, PRN Spasm, can increae to 2 at a time if needed, # 90 capsule, 2 Refills, Maintenance, 11/12/23 14:03:00 EDT, Capsule, [facility], Partial fill uponpatient request if the [...] 30 tablet, 5 Refills, Maintenance, 10/26/23 10:04:00 EDT,[facility], 160, cm, 10/16/23 10:41:00 EDT, Height, [...] Personnel Name: Sandra Wills NP Position: [facility] Associate Professional Member Role: Primary Care Nurse Address: Address: [address] [facility] [place] [address]- [place] Name: Marley Alejo RN Position: [facility] RN Member Role: Primary Care Nurse Name: Rashi Dewitt RN Position: [facility] RN Member Role: Primary Care Nurse Name: Alma Delia Fonseca PharmD Position: [facility] Associate Professional Member Role: Lifetime Consulting Provider Address: Address: [address] [facility] [place] [address]- [place] Name: Priscila Garzon RN Position: [facility] RN Member Role: Primary Care Nurse Name: Kyle Ahumada DO Position: [facility] Physician - Primary Care Member Role: PCP Address: Address: [address] [facility] [place] [address]- [place] Name: Renea Mart RN Position: [facility] RN Member Role: Primary Care Nurse Care Team Related Persons Name: FAUZIA JANSEN Address: home [address] [place] [id number] Name: AURELIA SHETH Address: home [address] [place] [phone] Name: BRE OSORIO Address: home [address] [place] [id number]
--- OUTSIDE RECORDS SUMMARY | 2024-01-02 21:30 | XMS_ITS | Continuity of Care Document ---
Author Organization [facility] Robin Jane Nolberto Address [address] [place] [address]- Care Team Providers Care Locomotive Supervisor Name Role Phone Kyle Ahumada DO Primary Care Physician Encounter [facility] [place] Date(s): 07/30/23 - 08/29/23 [facility] Robin Bolañosley Adult [address] [place] [address]- Allergies, Adverse Reactions, Alerts Substance Reaction Severity [...] vaccine, inactivated 05/10/07 Jarrett rded SARS-CoV-2 mRNA (ectldid-quad-eldmn) vax 08/30/21 Recorded SARS-CoV-2 (COVID-19) mRNA BNT-162b2 vac 01/02/21 Recorded SARS-CoV-2 (COVID-19) mRNA BNT-162b2 vac 12/02/20 Recorded Fluvirin (oldterm) 10 03/22/15 Given Fluzone Preservative-Free (oldterm) 11 03/12/12 Gi octavio pneumococcal 23-valent vaccine 10/08/11 Given tetanus/diphtheria/pertussis, acel(Tdap) 09/08/11 Given tetanus/diphtheria/pertussis, acel(Tdap) 12/17/06 Recorded influ virus vac, H1N1, inactive(oldterm) 12 05/08/11 Given hepatitis B adult vaccine 06/14/02 Recorded 1Result Comment: PCV 20 [facility]#[id number] 2Result Comment: Flu [facility]#[id number] 3Result Comment: [id number] 4Result Comment: [id number] 5Result Comment: [id number] 6Result Comment: [id number] 7Result Comment: [07/08/2017] 31123-570-30 8Admin Note: [facility] 9Admin Note: [facility] 9-13 10Admin Note: Given at [facility] 11Admin Note: 03-11-12 GIVEN AT [facility] 12Admin Note: rcvd elsewhere Medications Albuterol (Eqv-ProAir HFA) 90 mcg/inh inhalation aerosol 2 puffs, Inhalation, Every 4 hours, PRN NEEDED FOR WHEEZING OR FOR SHORTNESS OF BREATH (BULK), #8.5 Gm, 5 Refills, Maintenance, 07/25/23 11:45:00 EST, [facility], 17, INHALE 2 PUFFS BY MOUTH EVERY 4 HOURS NEEDED FOR WHEEZING OR FOR SHOR... Start Date: 07/25/23 Status: Ordered cloNIDine 0.1 mg oral tablet 1, tablet, By Mouth, 2 times a day, PRN, ANXIETY (VIAL., # 56 tablet, Refills 2, Maintenance, NEEDED, 07/25/23 11:44:00 EST, Route to Pharmacy Electronically, [facility], 160, cm, 07/07/2315:02:00 EST, Height, 112.4, kg, 06/24/23 17:38:00... Start Date: 07/25/23 Status: Ordered cyclobenzaprine 5 mg oral tablet 1 tablet, By Mouth, 3 times a day, PRN NEEDED, SPASM (VIAL., # 90 tablet, 3 Refills, Maintenance, 08/19/23 10:07:00 EST, [facility], 160, cm, 07/07/23 15:02:00 EST, Height, 112.4, kg, 06/24/23 17:38:00 EST, Dry Weight Start Date: 08/19/23 Status: Ordered docusate sodium 100 mg oral capsule 100 mg, 1, capsule, By Mouth, 2 times a day, hold for loose stool, # 180 capsule, Refills 3, Tot. Refills 3, Maintenance, 03/13/23 16:56:00 EDT, Route to Pharmacy Electronically, [facility], Partial fill upon patient request if the prescriptio... Start Date: 03/13/23 Stop Date: 04/12/23 Status: Ordered duloxetine 20 mg oral enteric coated capsule 2 capsule = 40 mg, By Mouth, Daily at bedtime, # 60 capsule, 11 Refills, Maintenance, 06/25/21 12:00:00 EST, Capsule, [facility], Partial fill upon patient request if [...] Pharmacy Electronically, [facility], 160, cm, 07/07/23 15:02:00 EST, Height,... Start Date: 07/28/23 Status: Ordered furosemide 40 mg oral tablet 40 mg, 1, tablet, By Mouth, Daily, # 90 tablet, Refills 1, Tot. Refills 1, Maintenance, 03/02/23 18:12:00 EDT, [facility], Partial fill upon patient request if [...] mL, 11 Refills, Maintenance, 08/11/23 7:46:00 EST, [facility], 30, INSTILL 2 SPRAYS IN EACH [...] EST, [facility], 160, cm, 06/26/23 11:21:00 EST, Height, 112.4, kg, 06/24/23 17:38:00 EST, Dry Weight Start Date: 07/01/23 Status: Ordered metFORMIN 500 mg oral tablet 1 tablet = 500 mg, By Mouth, 2 times a day, # 60 tablet, 5 Refills, Maintenance, 07/07/23 15:26:00 EST, Tablet, [facility], Partial fill upon patient request if the prescription is for a schedule II opioid drug., 160, cm, 07/07/23 15:02:00 EST... Start Date: 07/07/23 Stop Date: 01/03/24 Status: Ordered nicotine 21 mg/24 hr transdermal film, extended release 1 patch, Topically, Daily, # 30 patch, 3 Refills, Maintenance, 06/08/23 9:15:00 EST, [facility], 30, APPLY 1 PATCH TOPICALLY DAILY, [...] tablet, 5 Refills, Maintenance, 08/19/23 10:06:00 EST, [facility], 160, cm, 07/07/23 15:02:00 EST, Height, 112.4, kg, 06/24/23 17:38:00 EST,Dry Weight Start Date: 08/19/23 Status: Ordered rOPINIRole 0.5 mg oral tablet 1 tablet, By Mouth, 3 times a day, ^1R1,1R3,1R4., # 90 tablet, 5 Refills, Maintenance, 05/09/23 20:56:00 EDT, [facility], 160, cm, 04/02/23 12:45:00 EDT, Height, 98.8, kg, 07/17/22 8:58:00 EST, Dry Weight Start Date: 05/09/23 Status: Ordered rosuvastatin 10 mg oral tablet 1 tablet, By Mouth, Daily, ^1R1., # 30 tablet, 5 Refills, Maintenance, 07/01/23 14:33:00 EST, [facility], 160, cm, 06/26/23 11:21:00 EST, Height, 112.4, kg, 06/24/23 17:38:00 EST, Dry Weight Start Date: 07/01/23 Status: Ordered Symbicort 160mcg/4.5mcg Inhaler 2, puffs, Inhalation, 2 times a day, # 10.2 Gm, Refills 11, Tot. Refills 11, Maintenance, 06/03/23 11:47:00 EST, Aerosol, Route to Pharmacy Electronically, [id number], [facility], 160, cm, 06/03/23 11:30:00 EST, Height, 98.8, kg, ... Start Date: 06/03/23 Status: Ordered Xarelto 20 mg oral tablet 1 tablet, By Mouth, Daily in PM, ^1R4., # 30 tablet, 5 Refills, Maintenance, 08/11/23 11:28:00 EST,[facility], 160, cm, 07/07/23 15:02:00 EST, Height, [...] Team Personnel Name: Sandra Wills NP Position: [facility] PCO Associate Professional Member Role: Primary Care Nurse Address: Address: [address] [place] [address] [place] [address]- [place] Name: Marley Alejo RN Position: S RN Member Role: Primary Care Nurse Name: Rashi Dewitt RN Position: S RN Member Role: Primary Care Nurse Name: Alma Delia Fonseca PharmD Position: [facility] Associate Professional Member Role: Lifetime Consulting Provider Address: Address: [address] [place] [address]- [place] Name: Yolis Mattson RN Position: [facility] RN Member Role: Primary Care Nurse Name: Priscila Garzon RN Position: [facility] RN Member Role: Primary Care Nurse Name: Kyle Ahumada DO Position: [facility] Physician - Primary Care Member Role: PCP Address: Address: [address] [place] [address] [place] [address]- [place] Name: Renea Mart RN Position: [facility] RN Member Role: Primary Care Nurse Care Team Related Persons Name: FAUZIA JANSEN Address: home [address] [place] [address] Name: AURELIA SHETH Address: [address] [place] [address] Name: BRE OSORIO Address: home [address] [place] [address]
--- OUTSIDE RECORDS SUMMARY | 2024-01-02 21:30 | XMS_ITS | Continuity of Care Document ---
Author Organization [facility] Buck Nolberto lt Address [address] [place] [address]- Care Team Providers Care Billing Adjudicator Name Role Phone Fuentes Garcia MD Primary Care Physician Encounter [facility] Date(s): 07/31/20 - 08/30/20 [facility] Adult [address] [place] [address]- Attending Physician: Admtr, [id number] Admitting Physician: Admtr, [...] H1N1, inactive(oldterm) 8 05/08/11 Given 1Result Comment: [id number] 2Result Comment: [id number] 3Result Comment: [07/08/2017] [id number] 4Admin Note: [facility] 5Admin Note: [facility] [...] 5 Refills, Maintenance, 07/03/20 9:16:00 EST, Cream, [facility][id number], Partial fill upon patient request if the [...] 06/04/20 12:56:00 EST, Route to Pharmacy Electronically, [facility][id number], please schedule appt for further refills, 165, cm, 05/16/20 14:15:00 EDT, Hei... Start Date: 06/04/20 Status: Ordered Claritin 10 mg oral tablet 10 mg, 1, tablet, By Mouth, Daily, for 90 days, # 90 tablet, Refills 3, Tot. Refills 3, Acute 07/28/21 15:22:00 EST, 08/02/20 15:22:00 EST, Route to Pharmacy Electronically, [facility][id number], 165, cm, 07/31/20 14:32:00 EST, Height, 127, kg,... Start Date: 08/02/20 Stop Date: 07/28/21 Status: Ordered colchicine 0.6 mg oral tablet See Instructions, take 1 tablet by mouth once daily if needed for PSEUDOGOUT pain, # 30 tablet, Refills 5, Tot. Refills 5, Soft Stop, 01/05/20 8:41:00 EDT, Instructions Replace Required Details, Route to Pharmacy Electronically, [facility] #... Start Date: 01/05/20 Status: Ordered [...] Gm, 3 Refills, Maintenance, 06/22/20 14:58:00 EST, [facility] #[id number], 165, cm, 06/07/20 13:52:00 EST, Height, 127, [...] mL, 5 Refills, Maintenance, 10/01/18 10:08:42 EST, [place], 2 sprays Nares, Both 2 times a [...] 08/02/20 16:13:00 EST, Route to Pharmacy Electronically, [facility] #[id number], D/C RX ON FILE FOR ABRAM, 165, [...] 09/29/20 14:57:00 EST, 07/31/20 14:57:00 EST, Capsule, [facility] #[id number], Partial fill upon patient request if the prescription is for a schedule II opi... Start Date: 07/31/20 Stop Date: 09/29/20 Status: Ordered methenamine hippurate 1 gm oral tablet 1 tablet = 1 Gm, By Mouth, 2 times a day, # 60 tablet, 1 Refills, Maintenance, 07/12/20 13:56:00 EST, [facility] #[id number], Partial fill upon patient request if the prescription is for a schedule II opioid drug., 165, cm, 07/11/20 15:24:00 EST,... Start Date: 07/12/20 Stop Date: 07/05/21 Status: Ordered metoprolol 25 mg oral tablet 25 mg, 1, tablet, By Mouth, 2 times a day, # 60 tablet, Refills 5, Tot. Refills 5, Maintenance, 03/22/20 16:34:00 EDT, Route to Pharmacy Electronically, [facility][id number], 165, cm, 02/02/2014:39:00 EDT, Height, 127, kg, [...] 0 Refills, Maintenance, 06/18/20 16:57:00 EST, Patch, [facility] #[id number], Partial fill upon patient request, 165, cm, 06/07/20 13:52:00 EST, Height, 127, kg, 02/03/20 14:39:00 EDT, Dry Weight Start Date: 06/18/20 Stop Date: 07/30/20 Status: Ordered NuLYTELY with Flavor Packs oral powder for reconstitution See Instructions, Drink 240mL every 15-20 minutes until first half is gone. Repeat 6 hours prior toprocedure., # 4,000 mL, 0 Refills, Maintenance, 06/28/20 17:09:00 EST, [facility] #[id number],Partial fill upon patient request if the prescript... Start Date: 06/28/20 Status: Ordered oxyCODONE 10 mg oral tablet 1 tablet = 10 mg, By Mouth, Every 8 hours, DX Z79.891 G89.29 M47.816 OK TO FILL LESS THAN PRESCRIBED AMOUNT, # 84 tablet, 0 Refills, Maintenance, 08/14/20 14:32:00 EST, Tablet, [facility] #[id number], 08/14/20, 165, cm, 07/31/20 14:32:00 EST, He... [...] 5 Refills, Maintenance, 04/30/20 15:13:00 EDT, Tablet, [facility] #[id number], 165, cm, 04/30/20 14:30:00 EDT, Height, 127, kg, 02/03/20 14:39:00 EDT, Dry Weight Start Date: 04/30/20 Status: Ordered rosuvastatin 10 mg oral tablet 1 tablet = 10 mg, By Mouth, Daily, # 90 tablet, 3 Refills, Maintenance, 05/03/20 16:35:00 EDT, Tablet, [facility] #[id number], d/c rx for capsules, 165, cm, 04/30/20 14:30:00 EDT, Height, 127, kg, 02/03/20 14:39:00 EDT, Dry Weight Start Date: 05/03/20 Status: Ordered Ventolin HFA 108 mcg/inh inhalation aerosol with adapter 2 puffs, Inhalation, Every 4 hours, PRN Wheezing/Shortness of Breath, # 1 each, 11 Refills, Soft Stop, 01/19/20 11:46:00 EDT, [facility] #[id number], 165, cm, 01/16/20 6:17:00 EDT, Height, 128.1, kg, 01/16/20 6:17:00 EDT, Dry Weight Start Date: 01/19/20 Status: Ordered warfarin 5 mg oral tablet 1 tablet = 5 mg, By Mouth, Daily, dosing subject to change pending inr lab values, # 30 tablet, 5 Refills, Maintenance, 02/15/20 13:21:00 EDT, Tablet, [facility] #[id number], 165, cm, 02/03/20 14:39:00 EDT, Height, 127, [...]
--- OUTSIDE RECORDS SUMMARY | 2024-01-02 21:30 | XMS_ITS | Continuity of Care Document ---
Author Organization [facility] Address [address] [place] [address]- Care Team Providers Care Core Drilling Supervisor Name Role Phone Krishan GRIDER, Eulogio Molina Primary Care Physician Encounter [facility] Date(s): 11/26/22 - 12/26/22 [facility] [address] [place] [address] Allergies, Adverse Reactions, Alerts Substance [...] vaccine, inactivated 05/10/07 Jarrett rded SARS-CoV-2 mRNA (knwbzof-pfis-lsqin) vax 08/30/21 Recorded SARS-CoV-2 (COVID-19) mRNA BNT-162b2 vac 01/02/21 Recorded SARS-CoV-2 (COVID-19) mRNA BNT-162b2 vac 12/02/20 Recorded Fluvirin (oldterm) 8 03/22/15 Given Fluzone Preservative-Free (oldterm) 9 03/12/12 Giv en pneumococcal 23-valent vaccine 10/08/11 Given tetanus/diphtheria/pertussis, acel(Tdap) 09/08/11 Given tetanus/diphtheria/pertussis, acel(Tdap) 12/17/06 Recorded influ virus vac, H1N1, inactive(oldterm) 10 05/08/11 Given hepatitis B adult vaccine 06/14/02 Recorded 1Result Comment: [id number] 2Result Comment: [id number] 3Result Comment: [id number] 4Result Comment: [id number] 5Result Comment: [07/08/2017] [id number] 6Admin Note: [facility] 7Admin Note: [facility] [...] Gm, 4 Refills, Maintenance, 09/08/22 14:55:00 EST, [facility], 30, INHALE 2 PUFFS BY MOUTH EVERY FOUR HOURS NEEDED FOR WHEEZING... Start Date: 09/08/22 Status: Ordered cloNIDine 0.1 mg oral tablet 1, tablet, By Mouth, 2 times a day, PRN, # 56 tablet, Refills 2, Maintenance, NEEDED FOR FOR ANXIETY (VIAL) ^VIAL, 10/03/22 11:23:00 EST, Route to Pharmacy Electronically, [facility], 160,cm, 09/09/22 14:31:00 EST, Height, 98.8, kg, 07/17/... Start Date: 10/03/22 Status: Ordered colchicine 0.6 mg oral tablet 1, tablet, By Mouth, Daily, ^1R1., # 30 tablet, Refills 11, Maintenance, 09/10/22 5:31:00 EST, Route to Pharmacy Electronically, [facility], 160, cm, 09/09/22 14:31:00 EST, Height, 98.8, kg, 07/17/22 8:58:00 EST, Dry Weight Start Date: 09/10/22 Status: Ordered docusate sodium 100 mg oral capsule 100 mg, 1, capsule, By Mouth, 2 times a day, hold for loose stool, # 60 capsule, Refills 0, Tot. Refills 0, Maintenance, 01/11/22 7:25:00 EDT, Route to Pharmacy Electronically, [facility], Partial fill upon patient request if the prescri... Start Date: 01/11/22 Stop Date: 02/10/22 Status: Ordered duloxetine 20 mg oral enteric coated capsule 2 capsule = 40 mg, By Mouth, Daily at bedtime, # 60 capsule, 11 Refills, Maintenance, 06/25/21 12:00:00 EST, [facility], Partial fill upon patient request [...] Acute 03/16/23 6:08:00 EDT, 10/14/22 6:08:00 EDT, [place], [facility][id number], Partial fill upon patient request if the [...] 11/06/22 6:52:00 EDT, Route to Pharmacy Electronically, [facility], 160, cm, 10/13/22 16:25:00 EDT, [...] 5 Refills, Maintenance, 07/29/22 6:50:00 EST, Tablet, [facility], Partial fill upon patient request if the prescription is for a schedule II opioid drug., 160, cm, 07/18/22 11:39:00 EST,... Start Date: 07/29/22 Status: Ordered penicillin V potassium 250 mg oral tablet 1 tablet = 250 mg, By Mouth, 2 times a day, CELLULITIS PROPHYLAXIS, # 60 tablet, 5 Refills, Maintenance, 11/06/22 17:25:00 EDT, Tablet, [facility], Partial fill upon patient request if the prescription is for a schedule II opioid drug., 160, c... Start Date: 11/06/22 Stop Date: 05/05/23 Status: Ordered predniSONE 10 mg oral tablet 1 tablet, By Mouth, Daily, ^1R1., # 30 tablet, 2 Refills, Maintenance, 11/21/22 16:59:00 EDT, [facility], 160, cm, 10/13/22 16:25:00 EDT, Height, 98.8, kg, 07/17/22 8:58:00 EST, Dry Weight Start Date: 11/21/22 Status: Ordered rOPINIRole 0.5 mg oral tablet 1 tablet, By Mouth, 3 times a day, ^1R1,1R3,1R4., # 90 tablet, 5 Refills, Maintenance, 12/24/22 14:21:00 EDT, [facility], 160, cm, 12/16/22 10:46:00 EDT, Height, 98.8, kg, 07/17/22 8:58:00 EST, Dry Weight Start Date: 12/24/22 Status: Ordered rosuvastatin 10 mg oral tablet 1 tablet, By Mouth, Daily, ^1R1., # 30 tablet, 5 Refills, Maintenance, 09/10/22 5:31:00 EST, [facility], 160, cm, 09/09/22 14:31:00 EST, Height, 98.8, kg, 07/17/22 8:58:00 EST, Dry Weight Start Date: 09/10/22 Status: Ordered Symbicort 80mcg/4.5mcg Inhaler See Instructions, INHALE 2 PUFFS BY MOUTH TWICE A DAY RINSE MOUTH AND THROAT AFTER USE, # 10.2 Gm, Refills 5, Maintenance, 07/30/22 21:16:00 EST, Instructions Replace Required Details, [id number]... Start Date: 07/30/22 Status: Ordered warfarin 1 mg oral tablet See Instructions, Take 1-10 tabs daily as directed by [facility]., # 150 tablet, 0 Refills, Maintenance, 12/26/22 11:43:00 EDT, Tablet, [facility], Partial fill upon patient request if the prescription is for a schedule II opioid drug., 160, cm, . Start Date: 12/26/22 Status: Ordered Problem List Condition Confirmation Course [...] Confirmed Active Gastric banding status Confirmed Active half-way current use of opiate analgesic Confirmed Active [...] Member Role: Primary Care Nurse Address: Address: [address] [place] [address]- [place] Name: Marley Alejo RN Position: [facility] RN Member Role: Primary Care Nurse Name: Eulogio Nickerson MD Position: [facility] Physician - Primary Care Member Role: PCP Address: Address: [address] [place] [address]- [place] Name: Alma Delia Fonseca PharmD Position: [facility] Associate Professional Member Role: Lifetime Consulting Provider Address: Address: [address] [place] [address] [place] [address]- [place] Name: Yolis Mattson RN Position: [facility] RN Member Role: Primary Care Nurse Name: Priscila Garzon RN Position: S RN Member Role: Primary Care Nurse Name: Renea Mart RN Position: [facility] RN Member Role: Primary Care Nurse Care Team Related Persons Name: FAUZIA JANSEN Address: home [address] [place] [address] Name: AURELIA SHETH Address: [address] [place] [address] Name: BRE OSORIO Address: home [address] [place] [address]
--- OUTSIDE RECORDS SUMMARY | 2024-01-02 21:30 | XMS_ITS | Continuity of Care Document ---
Author Organization [facility] Nolberto Address [address] [place] [address]- Care Team Providers Care Inspector Repairer Sandstone Name Role Phone Radha GRIDER, Fuentes Kenny Primary Care Physician [facility] Date(s): 03/26/21 - 04/25/21 [facility] Adult [address] [place] [address]- Allergies, Adverse Reactions, Alerts Substance Reaction Severity [...] B adult vaccine 06/14/02 Recorded 1Result Comment: [id number] 2Result Comment: [id number] 3Result Comment: [07/08/2017] [id number] 4Admin Note: [facility] 5Admin Note: [facility] [...] 11 Refills, Maintenance, 10/31/20 14:14:00 EDT, Cream, [facility] #[id number], Partial fill upon patient request if the [...] 04/09/21 14:32:00 EDT, Route to Pharmacy Electronically, [facility], 165, cm, 02/28/21 14:22:00 EDT, Height, [...] PMR, history of smoking fax to : [phone], 04... Start Date: 10/26/20 Status: Ordered Disposable [...] Gm, 3 Refills, Maintenance, 06/22/20 14:58:00 EST, [facility] #[id number], 165, cm, 06/07/20 13:52:00 EST, Height, 127, [...] mL, 5 Refills, Maintenance, 10/01/18 10:08:42 EST, [facility], 2 sprays Nares, Both 2 times a [...] 08/02/20 16:13:00 EST, Route to Pharmacy Electronically, [facility] #[id number], D/C RX ON FILE FOR ABRAM, 165, [...] 3 Refills, Maintenance, 02/25/21 10:31:00 EDT, Tablet, [facility][id number], Partial fill upon patient request if the prescription is for a schedule II opioid drug., 165, cm, 01/11/21 14:... Start Date: 02/25/21 Status: Ordered methenamine hippurate 1 gm oral tablet 1 tablet = 1 Gm, By Mouth, 2 times a day, # 60 tablet, 1 Refills, Maintenance, 07/12/20 13:56:00 EST, [facility] #[id number], Partial fill upon patient request if the prescription is for a schedule II opioid drug., 165, cm, 07/11/20 15:24:00 EST,... Start Date: 07/12/20 Stop Date: 07/05/21 Status: Ordered Metoprolol Tartrate 25 mg oral tablet 1 tablet, By Mouth, 2 times a day, # 60 tablet, 2 Refills, Maintenance, 03/07/21 10:08:00 EDT, [facility] #[id number], 165, cm, 02/28/21 14:22:00 EDT, Height, 127, kg, 02/03/20 14:39:00 EDT, DryWeight Start Date: 03/07/21 Status: Ordered Mitigare 0.6 mg oral capsule 1 capsule, By Mouth, Daily, # 30 capsule, 11 Refills, Maintenance, 12/31/20 16:51:00 EDT, [facility] #[id number], 165, cm, 11/19/20 11:32:00 EDT, Height, 127, [...] 0 Refills, Maintenance, 04/11/21 9:00:00 EDT, Patch, [facility], Partial fill upon patient request, 165, cm, 02/28/21 14:22:00 EDT, Height, 127, kg, 02/03/20 14:39:00 EDT, Dry Weight Start Date: 04/11/21 Stop Date: 05/23/21 Status: Ordered NuLYTELY with Flavor Packs oral powder for reconstitution See Instructions, Drink 240mL every 15-20 minutes until first half is gone. Repeat 6 hours prior toprocedure., # 4,000 mL, 0 Refills, Maintenance, 06/28/20 17:09:00 EST, [facility] #[id number],Partial fill upon patient request if the prescript... Start Date: 06/28/20 Status: Ordered oxyCODONE 10 mg oral tablet 1 tablet = 10 mg, By Mouth, Every 8 hours, DX Z79.891 G89.29 M47.816 OK TO FILL LESS THAN PRESCRIBED AMOUNT, # 84 tablet, 0 Refills, Maintenance, 04/22/21 16:41:00 EDT, Tablet, [facility] #[id number], 165, cm, 02/28/21 14:22:00 EDT, Height, 127,... Start Date: 04/22/21 Stop Date: 05/20/21 Status: Ordered oxyCODONE 5 mg oral tablet 10 mg, 2, tablet, By Mouth, Every 8 hours, DX Z79.891 G89.29 M47.816 OK TO FILL LESS THAN PRESCRIBED AMOUNT, # 168 tablet, Refills 0, Tot. Refills 0, Maintenance, 03/25/21 16:45:00 EDT, Route to Pharmacy Electronically, [facility] #[id number], D... Start Date: 03/25/21 Stop Date: 04/22/21 Status: Ordered penicillin V potassium 250 mg oral tablet 1 tablet = 250 mg, By Mouth, 2 times a day, Cellulitis prophylaxis, # 60 tablet, 11 Refills, Maintenance, 10/30/20 12:09:00 EDT, [facility] #[id number], 165, cm, 10/19/20 8:59:00 EDT, Height, 127, kg, 02/03/20 14:39:00 EDT, Dry Weight Start Date: 10/30/20 Status: Ordered predniSONE 5 mg oral tablet 1 tablet = 5 mg, By Mouth, Daily, # 30 tablet, 0 Refills, Maintenance, 01/11/21 14:20:00 EDT, Tablet, [facility] #[id number], Partial fill upon patient request if the [...] 1 Refills, Maintenance, 04/09/21 14:31:00 EDT, [facility]t, [facility], 165, cm, 02/28/21 14:22:00 EDT, Height, 127, kg, 02/03/20 14:39:00 EDT, Dry Weight Start Date: 04/09/21 Status: Ordered rosuvastatin 10 mg oral tablet 1 tablet = 10 mg, By Mouth, Daily, # 90 tablet, 3 Refills, Maintenance, 05/03/20 16:35:00 EDT, Tablet, [facility] #[id number], d/c rx for capsules, 165, cm, 04/30/20 14:30:00 EDT, Height, 127, kg, 02/03/20 14:39:00 EDT, Dry Weight Start Date: 05/03/20 Status: Ordered Ventolin HFA 108 mcg/inh inhalation aerosol with adapter 2 puffs, Inhalation, Every 4 hours, PRN Wheezing/Shortness of Breath, # 1 each, 5 Refills, Soft Stop, 11/08/20 8:46:00 EDT, [facility] #[id number], 165, cm, 10/19/20 8:59:00 EDT, Height, 127, kg, 02/03/20 14:39:00 EDT, Dry Weight Start Date: 11/08/20 Status: Ordered warfarin 2.5 mg oral tablet See Instructions, take 2.5mg sun tu thurs sat subjet to change based on INR per MD, # 90 each, 3 Refills, Maintenance, 02/11/21 10:38:00 EDT, Tablet, [facility] #[id number], PLEASE GIVE THIS IN COMBINATION WITH 5MG TABLETS;, 165, cm, 01/11/21... 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
--- OUTSIDE RECORDS SUMMARY | 2024-01-02 21:30 | XMS_ITS | Continuity of Care Document ---
Author Organization [facility] Nolberto Address [address] [place] [address]- Care Team Providers Care Furnace Repairer Name Role Phone Krishan GRIDER, Eulogoi Molina Primary Care Physician [phone] Encounter [facility] Date(s): 03/19/22 - 04/18/22 [facility] Adult [address] [place] [address]- Allergies, Adverse Reactions, Alerts Substance Reaction Severity Status Adhesive Bandage Active Dust copd exac/sinus congestion A ctive Immunizations Given and Recorded Vaccine Date Status Refusal Reason SARS-CoV-2 mRNA (ugtgxgh-[id number]-chlqz) vax 08/30/21 Recorded influenza virus vaccine, inactivated [...] B adult vaccine 06/14/02 Recorded 1Result Comment: [id number] 2Result Comment: [id number] 3Result Comment: [id number] 4Result Comment: [07/08/2017] [id number] 5Admin Note: [facility] 6Admin Note: [facility] [...] 8.5 Gm, 5 Refills, 05/29/21 17:13:00 EDT, [facility] #[id number], 17, INHALE 2 PUFFS BY MOUTH EVERY [...] 0 Refills, Maintenance, 01/11/22 7:25:00 EDT, Capsule, [facility], Partial fill upon patient [...] Electronically, [facility], 159, cm, 01/11/22 15:15:00 [...] 01/11/22 7:25:00 EDT, Route to Pharmacy Electronically, [facility], Partial fill upon patient request [...] 12/11/21 13:41:00 EDT, [facility] [...] 5 Refills, 03/07/22 6:14:00 EDT, [facility], 159, cm, 01/11/22 15:15:00 EDT, Height, 98.8, kg, 01/10/22 9:12:00 EDT, Dry Weight Start Date: 03/07/22 Status: Ordered rosuvastatin 10 mg oral tablet See Instructions, TAKE 1 TABLET BY MOUTH DAILY, # 90 tablet, 1 Refills, Maintenance, 04/04/22 11:35:00 EDT, [facility], 159, cm, 01/11/22 15:15:00 [...] Replace Required Details, Route to Pharmacy Electronically, [facility]DP_[id number], [facility], 159, cm, 01/11/22 15:15:00 EDT... Start Date: 02/13/22 Status: Ordered warfarin 1 mg oral tablet See Instructions, Take 1-10 tablets By Mouth Daily as directed by THOM, # 150 tablet, 0 Refills, Maintenance, 01/11/22 7:24:00 EDT, Tablet, [facility], Partial fill upon [...] Personnel Name: Krishan GRIDER, Eulogio Molina Address: [address] [place] [id number]
--- OUTSIDE RECORDS SUMMARY | 2024-01-02 21:30 | XMS_ITS | Continuity of Care Document ---
Author Organization [facility] Robin Jane Nolberto Address [address] [place] [address]- Care Team Providers Care Photo Colorer Name Role Phone Kyle Ahumada DO Primary Care Physician [facility] Date(s): 03/13/23 - 04/16/23 [facility] Adult [address] [place] [address]- Attending Physician: Kyle Ahumada DO Allergies, Adverse [...] vaccine, inactivated 05/10/07 Jarrett rded SARS-CoV-2 mRNA ([id number]-pwxy-pmcaf) vax 08/30/21 Recorded SARS-CoV-2 (COVID-19) mRNA BNT-162b2 vac 01/02/21 Recorded SARS-CoV-2 (COVID-19) mRNA BNT-162b2 vac 12/02/20 Recorded Fluvirin (oldterm) 8 03/22/15 Given Fluzone Preservative-Free (oldterm) 9 03/12/12 Giv en pneumococcal 23-valent vaccine 10/08/11 Given tetanus/diphtheria/pertussis, acel(Tdap) 09/08/11 Given tetanus/diphtheria/pertussis, acel(Tdap) 12/17/06 Recorded influ virus vac, H1N1, inactive(oldterm) 10 05/08/11 Given hepatitis B adult vaccine 06/14/02 Recorded 1Result Comment: [id number] 2Result Comment: [id number] 3Result Comment: [id number] 4Result Comment: [id number] 5Result Comment: [07/08/2017] [id number] 6Admin Note: [facility] 7Admin Note: [facility] 04-08 8Admin Note: Given at [facility] 9Admin Note: 03-11-12 GIVEN AT [facility] 10Admin Note: rcvd elsewhere Medications acetaminophen 325 mg oral tablet 650 mg, 2, tablet, By Mouth, Every 6 hours, PRN, # 100 tablet, Refills 1, Tot. Refills 1, Maintenance, Pain , Moderate, 03/13/23 16:59:00 EDT, Route to Pharmacy Electronically, [facility], Partial fill upon patient request if the prescription... Start Date: 03/13/23 Status: Ordered Albuterol (Eqv-ProAir HFA) 90 mcg/inh inhalation aerosol See Instructions, INHALE 2 PUFFS BY MOUTH EVERY FOUR HOURS NEEDED FOR WHEEZING OR SHORTNESS OF BREATH, # 8.5 Gm, 5 Refills, Maintenance, 03/13/23 9:55:00 [facility], 30, INHALE 2 PUFFS BY MOUTH [...] 03/12/23 15:30:00 EDT, Route to Pharmacy Electronically, [facility], 160, cm, 03/02/23 9:56:00 EDT, Height, 98.8, k... Start Date: 03/12/23 Status: Ordered cloNIDine 0.1 mg oral tablet 0.1 mg, 1, tablet, By Mouth, 2 times a day, PRN, # 60 tablet, Refills 2, Tot. Refills 2, Maintenance, Anxiety, 03/12/23 16:38:00 EDT, Route to Pharmacy Electronically, [facility], Partial fill upon patient request if the prescription is for a... Start Date: 03/12/23 Status: Ordered cyclobenzaprine 5 mg oral tablet 1 tablet = 5 mg, By Mouth, 3 times a day, PRN Spasm, can increase to 2 three time a day if needed, # 90 tablet, 2 Refills, Maintenance, 04/02/23 12:59:00 EDT, Tablet, [facility], Partial fillupon patient request if the prescription is for a s... Start Date: 04/02/23 Status: Ordered DilTIAZem (Eqv-Dilacor XR) 240 mg/24 hours oral capsule, extended release 1 capsule = 240 mg, By Mouth, Daily, # 90 capsule, 3 Refills, Maintenance, 03/13/23 17:04:00 EDT, CD Capsule, [facility], Partial fill upon patient request [...] 03/13/23 16:56:00 EDT, Route to Pharmacy Electronically, [facility], Partial fill upon patient request if the prescriptio... Start Date: 03/13/23 Stop Date: 04/12/23 Status: Ordered duloxetine 20 mg oral enteric coated capsule 2 capsule = 40 mg, By Mouth, Daily at bedtime, # 60 capsule, 11 Refills, Maintenance, 06/25/21 12:00:00 EST, Capsule, [facility], Partial fill upon patient [...] 03/02/23 18:12:00 EDT, Route to Pharmacy Electronically, [facility], Partial fill upon patient request if the prescription is for a schedule II opioid drug... Start Date: 03/02/23 Status: Ordered ipratropium nasal 21 mcg/inh spray 2 sprays = 42 mcg, Nares, Both, 2 times a day, # 30 mL, 5 Refills, Maintenance, 03/13/23 16:58:00 EDT, [place], [facility], Partial fill upon patient request [...] 02/07/23 18:12:00 EDT, Route to Pharmacy Electronically, [facility], 160, cm, 12/16/22 10:46:00 EDT, Height, [...] 3 Refills, Maintenance, 03/13/23 17:03:00 EDT, Patch, [facility], Partial fill upon patient request if the prescription is for a schedule II opioid drug., 1 patch Topically Daily, 160, cm, 03/02/23 9:56:0... Start Date: 03/13/23 Status: Ordered penicillin V potassium 250 mg oral tablet 1 tablet, By Mouth, 2 times a day, ^1R1,1R4., # 60 tablet, 5 Refills, Maintenance, 04/10/23 16:03:00 EDT, [facility], 160, cm, 04/02/23 12:45:00 EDT, Height, 98.8, kg, 07/17/22 8:58:00 EST, Dry Weight Start Date: 04/10/23 Status: Ordered rOPINIRole 0.5 mg oral tablet 1 tablet, By Mouth, 3 times a day, ^1R1,1R3,1R4., # 90 tablet, 5 Refills, Maintenance, 12/24/22 14:21:00 EDT, [facility], 160, cm, 12/16/22 10:46:00 EDT, Height, 98.8, kg, 07/17/22 8:58:00 EST, Dry Weight Start Date: 12/24/22 Status: Ordered rosuvastatin 10 mg oral tablet 1 tablet, By Mouth, Daily, ^1R1., # 30 tablet, 5 Refills, Maintenance, 02/07/23 18:12:00 EDT, [facility], 160, cm, 12/16/22 10:46:00 EDT, Height, 98.8, kg, 07/17/22 8:58:00 EST, Dry Weight Start Date: 02/07/23 Status: Ordered Symbicort 80mcg/4.5mcg Inhaler See Instructions, INHALE 2 PUFFS BY MOUTH TWICE A DAY RINSE MOUTH AND THROAT AFTER USE, # 10.2 Gm, Refills 5, Tot. Refills 5, Maintenance, 03/13/23 10:13:00 EDT, Instructions Replace Required Details, Route to Pharmacy Electronically, [id number]... Start Date: 03/13/23 Status: Ordered Xarelto 20 mg oral tablet 1 tablet = 20 mg, By Mouth, Daily at supper, # 90 tablet, 1 Refills, Maintenance, 03/02/23 18:12:00EDT, Tablet, [facility], pt was rx'd w diltiazem on [...] Name: Sandra Wills NP Position: [facility] PCO Associate Professional Member Role: Primary Care Nurse Address: Address: [address] [facility] [place] [address]- [place] Name: Marley Alejo RN Position: [facility] RN Member Role: Primary Care Nurse Name: Alma Delia Fonseca PharmD Position: [facility] Associate Professional Member Role: Lifetime Consulting Provider Address: Address: [address] [place] [address] [place] [address]- [place] Name: Yolis Mattson RN Position: [facility] RN Member Role: Primary Care Nurse Name: Priscila Garzon RN Position: [facility] RN Member Role: Primary Care Nurse Name: Kyle Ahumada DO Position: [facility] Physician - Primary Care Member Role: PCP Address: Address: [address] [place] [address]- [place] Name: Renea Mart RN Position: [facility] RN Member Role: Primary Care Nurse Care Team Related Persons Name: FAUZIA JANSEN Address: home [address] [place] [address] Name: AURELIA SHETH Address: [address] [place] [address] Name: BRE OSORIO Address: home [address] [place] [address]
--- OUTSIDE RECORDS SUMMARY | 2024-01-02 21:31 | XMS_ITS | Continuity of Care Document ---
Author [facility] Address [address], [address] [place] [address]- Care Team Providers Care Delimer Name Role Phone Fuentes Garcia MD Primary Care Physician [phone] [facility] Date(s): 12/08/19 - 03/04/20 [facility] [address], [address] [place] [address]- [facility] Attending Physician: Rocio Perez MD Admitting Physician: Rocio Perez MD Referring Physician: Fuentes Garcia MD Allergies, [...] H1N1, inactive(oldterm) 7 05/08/11 Given 1Result Comment: [id number] 2Result Comment: [07/08/2017] [id number] 3Admin Note: [facility] 4Admin Note: [facility] [...] 12/06/19 9:16:00 EDT, Route to Pharmacy Electronically, [facility] #[id number], please schedule appt for further refills, 162, cm, 09/21/19 12:01:00 Heig. JUDIT.. Start Date: 12/06/19 Status: Ordered Claritin 10 mg oral tablet 10 mg, 1, tablet, By Mouth, Daily, for 30 days, # 30 tablet, Refills 11, Tot. Refills 11, Acute 05/11/20 17:36:41 EDT, 05/17/19 17:36:41 EDT, Route to Pharmacy Electronically, [id number], [facility] [address] [place] [address] Start Date: 05/17/19 Stop Date: 05/11/20 Status: Ordered colchicine 0.6 mg oral tablet See Instructions, take 1 tablet by mouth once daily if needed for PSEUDOGOUT pain, # 30 tablet, Refills 5, Tot. Refills 5, Soft Stop, 01/05/20 8:41:00 EDT, Instructions Replace Required Details, Route to Pharmacy Electronically, [facility] #... Start Date: 01/05/20 Status: Ordered Disposable [...] Gm, 1 Refills, Maintenance, 12/20/19 16:30:00 EDT, [facility] #[id number], 162, cm, 09/21/19 12:01:00 EST, Height, 116.4, [...] 5 Refills, Maintenance, 10/01/18 10:08:42 EST, [place], 2 sprays Nares, Both 2 times a [...] 09/28/19 11:53:00 EST, Route to Pharmacy Electronically, [facility] #[id number], 162, cm, 09/21/2011:01:00 EST, Height, 116.4, kg, [...] 0 Refills, Maintenance, 02/27/20 16:58:00 EDT, Tablet, [facility] #[id number], 02/28/20, 165, cm, 02/03/20 14:39:00 EDT, He... 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
--- OUTSIDE RECORDS SUMMARY | 2024-01-02 21:31 | XMS_ITS | Continuity of Care Document ---
Author Organization [facility] Nolberto Address [address] [place] [address]- Care Team Providers Care Supervisor Fertilizer Name Role Phone Krishan GRIDER, Eulogio Molina Primary Care Physician [phone] Encounter [facility] Date(s): 05/01/22 - 05/31/22 [facility] Adult [address] [place] [address]- Allergies, Adverse Reactions, Alerts Substance Reaction Severity [...] vaccine, inactivated 05/10/07 Jarrett rded SARS-CoV-2 mRNA (rclgkie-xrfw-yyvfd) vax 08/30/21 Recorded SARS-CoV-2 (COVID-19) mRNA BNT-162b2 vac 01/02/21 Recorded SARS-CoV-2 (COVID-19) mRNA BNT-162b2 vac 12/02/20 Recorded Fluvirin (oldterm) 8 03/22/15 Given Fluzone Preservative-Free (oldterm) 9 03/12/12 Giv en pneumococcal 23-valent vaccine 10/08/11 Given tetanus/diphtheria/pertussis, acel(Tdap) 09/08/11 Given tetanus/diphtheria/pertussis, acel(Tdap) 12/17/06 Recorded influ virus vac, H1N1, inactive(oldterm) 10 05/08/11 Given hepatitis B adult vaccine 06/14/02 Recorded 1Result Comment: [id number] 2Result Comment: [id number] 3Result Comment: [id number] 4Result Comment: [id number] 5Result Comment: [07/08/2017] [id number] 6Admin Note: [facility] 7Admin Note: [facility] [...] Gm, 4 Refills, Maintenance, 04/28/22 13:11:00 EDT, [facility], 17, INHALE 2 PUFFS BY MOUTH EVERY FOUR HOURS NEEDED FOR WHEEZING... Start Date: 04/28/22 Status: Ordered cloNIDine 0.1 mg oral tablet See Instructions, TAKE 1 TABLET BY MOUTH TWICE A DAY NEEDED FOR FOR ANXIETY (VIAL), # 60 tablet,Refills 1, Maintenance, 04/28/22 13:11:00 EDT, Instructions Replace Required Details, Route to Pharmacy Electronically, [facility], 159, cm, 06... Start Date: 04/28/22 Status: Ordered colchicine 0.6 mg oral tablet 0.6 mg, 1, tablet, By Mouth, Daily, # 30 tablet, Refills 11, Tot. Refills 11, Maintenance, 227:00:00 EDT, Route to Pharmacy Electronically, [facility], Partial fill upon patient request if the prescription is for a schedule II opioid dr... Start Date: 10/30/21 Status: Ordered digoxin 0.125 mg oral tablet 1, tablet, By Mouth, Daily, # 90 tablet, Refills 0, Maintenance, 05/29/22 6:33:00 EDT, Route to Pharmacy Electronically, [facility], 159, cm, 05/05/22 11:32:00 EDT, Height, 98.8, kg, 229:12:00 EDT, Dry Weight Start Date: 05/29/22 Status: Ordered docusate sodium 100 mg oral capsule 100 mg, 1, capsule, By Mouth, 2 times a day, hold for loose stool, # 60 capsule, Refills 0, Tot. Refills 0, Maintenance, 01/11/22 7:25:00 EDT, Route to Pharmacy Electronically, [facility], Partial fill upon patient request if the prescri... Start Date: 01/11/22 Stop Date: 02/10/22 Status: Ordered duloxetine 20 mg oral enteric coated capsule 2 capsule = 40 mg, By Mouth, Daily at bedtime, # 60 capsule, 11 Refills, Maintenance, 06/25/21 12:00:00 EST, Capsule, [facility], Partial fill upon patient request [...] Replace Required Details, Route to Pharmacy Electronically, [facility], 165, cm, 06/25/21 11:35:00 EST, Height, 127, kg, 02/03/20 14:39:00 EDT, Dry Weight Start Date: 08/05/21 Status: Ordered penicillin V potassium 250 mg oral tablet 1 tablet, By Mouth, 2 times a day, CELLULITIS PROPHYLAXIS., # 60 tablet, 5 Refills, Maintenance, 05/29/22 6:19:00 EDT, [facility], 159, cm, 05/05/22 11:32:00 EDT, Height, 98.8, kg, 01/10/22 9:12:00 EDT, Dry Weight Start Date: 05/29/22 Status: Ordered rOPINIRole 0.5 mg oral tablet 1 tablet, By Mouth, 3 times a day, # 90 tablet, 5 Refills, 03/07/22 6:14:00 EDT, [facility], 159, cm, 01/11/22 15:15:00 EDT, Height, 98.8, kg, 01/10/22 9:12:00 EDT, Dry Weight Start Date: 03/07/22 Status: Ordered rosuvastatin 10 mg oral tablet See Instructions, TAKE 1 TABLET BY MOUTH DAILY, # 90 tablet, 1 Refills, Maintenance, 04/04/22 11:35:00 EDT, [facility], 159, cm, 01/11/22 15:15:00 EDT, Height, 98.8, kg, 01/10/22 9:12:00 EDT,Dry Weight Start Date: 04/04/22 Status: Ordered Symbicort 80mcg/4.5mcg Inhaler See Instructions, INHALE 2 PUFFS BY MOUTH TWICE A DAY RINSE MOUTH AND THROAT AFTER USE, # 10.2 Gm, Refills 5, Instructions Replace Required Details, Route to Pharmacy Electronically, NCPDP_[id number], [facility], 159, cm, 01/11/22 15:15:00 EDT... 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
--- OUTSIDE RECORDS SUMMARY | 2024-01-02 21:31 | XMS_ITS | Continuity of Care Document ---
Author Organization [facility] Robin Jane Nolberto lt Address [address] [place] [address]- Care Team Providers Care Driver Education Road Instructor Name Role Phone Krishan GRIDER, Eulogio Molina Primary Care Physician [phone] [facility]counter [facility] Date(s): 07/09/22 - 08/08/22 [facility] Robin Bolañosley Adult [address] [place] [address]- Allergies, Adverse Reactions, Alerts Substance Reaction Severity [...] vaccine, inactivated 05/10/07 Jarrett rded SARS-CoV-2 mRNA (umlcacn-ajwx-sapmo) vax 08/30/21 Recorded SARS-CoV-2 (COVID-19) mRNA BNT-162b2 vac 01/02/21 Recorded SARS-CoV-2 (COVID-19) mRNA BNT-162b2 vac 12/02/20 Recorded Fluvirin (oldterm) 8 03/22/15 Given Fluzone Preservative-Free (oldterm) 9 03/12/12 Giv en pneumococcal 23-valent vaccine 10/08/11 Given tetanus/diphtheria/pertussis, acel(Tdap) 09/08/11 Given tetanus/diphtheria/pertussis, acel(Tdap) 12/17/06 Recorded influ virus vac, H1N1, inactive(oldterm) 10 05/08/11 Given hepatitis B adult vaccine 06/14/02 Recorded 1Result Comment: [id number] 2Result Comment: [id number] 3Result Comment: [id number] 4Result Comment: [id number] 5Result Comment: [07/08/2017] [id number] 6Admin Note: [facility] 7Admin Note: [facility] [...] Gm, 4 Refills, Maintenance, 04/28/22 13:11:00 EDT, [facility], 17, INHALE 2 PUFFS BY MOUTH [...] 01/11/22 7:25:00 EDT, Route to Pharmacy Electronically, [facility], Partial fill upon patient request if [...] 07/17/22 17:07:00 EST, Route to Pharmacy Electronically, [facility], 160, cm, 07/17/22 12:03:00 EST, Height, [...] 5 Refills, Maintenance, 07/29/22 6:50:00 EST, Tablet, [facility], Partial [...] tablet, 5 Refills, Maintenance, 07/24/22 23:41:00 EST, [facility], 160, cm, 07/18/22 11:39:00 EST, Height, [...] Gm, 5 Refills, Maintenance, 07/17/22 11:09:00 EST, [facility], 160, cm, 07/17/22 8:49:00 EST, Height, 98.8, kg, 07/17/22 8:58:00 EST, Dry Weight Start Date: 07/17/22 Status: Ordered Symbicort 80mcg/4.5mcg Inhaler See Instructions, INHALE 2 PUFFS BY MOUTH TWICE A DAY RINSE MOUTH AND THROAT AFTER USE, # 10.2 Gm, Refills 5, Maintenance, 07/30/22 21:16:00 EST, Instructions Replace Required Details, Route to Pharmacy Electronically, [id number], [facility]... 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 [...] ruddy ngjennifer entered on: 05/04/18 Sex Female Patient Care team information Care Team Personnel Name: Sandra Wills NP Position: [facility] PCO Associate Professional Member Role: Primary Care Nurse Address: Address: [address] [place] [address] [place] [address]- [place] Name: Marley Alejo RN Position: [facility] RN Member Role: Primary Care Nurse Name: Eulogio Nickerson MD Position: [facility] Primary Care Physician Member Role: PCP Address: Address: [address] [place] [address]- [place] Name: Alma Delia Fonseca PharmD Position: [facility] Associate Professional Member Role: Lifetime Consulting Provider Address: Address: [address] [place] [address] [place] [address]- Name: Yolis Mattson RN Position: [facility] RN Member Role: Primary Care Nurse Name: Priscila Garzon RN Position: [facility] RN Member Role: Primary Care Nurse Name: Renea Mart RN Position: [facility] RN Member Role: Primary Care Nurse Care Team Related Persons Name: FAUZIA JANSEN Address: home [address] [place] [address] Name: AURELIA SHETH Address: home [address] [place] [address] Name: BRE OSORIO Address: home [address] [place] [address]
--- OUTSIDE RECORDS SUMMARY | 2024-01-02 21:31 | XMS_ITS | Continuity of Care Document ---
Author Organization [facility] Buck Nolberto Address [address] [place] [address]- Care Team Providers Care Queen Producer Name Role Phone Krishan GRIDER, Eulogio Molina Primary Care Physician [facility] Date[facility]s): 10/09/21 - 11/08/21 [facility] Robin Bolañosley Adult [address] [place] [address]- Allergies, Adverse Reactions, Alerts Substance Reaction Severity Status Adhesive Bandage Active Dust copd exac/sinus congestion A ctive Immunizations Given and Recorded Vaccine Date Status Refusal Reason SARS-CoV-2 mRNA (ufvyrfx-futo-ltrgr) vax 08/30/21 Recorded influenza virus vaccine, inactivated [...] B adult vaccine 06/14/02 Recorded 1Result Comment: [id number] 2Result Comment: [id number] 3Result Comment: [id number] 4Result Comment: [07/08/2017] [id number] 5Admin Note: [facility] 6Admin Note: [facility] [...] 8.5 Gm, 5 Refills, 05/29/21 17:13:00 EDT, [id number], 17, INHALE 2 PUFFS BY MOUTH EVERY 4 HOURS NEEDED FOR WHEEZING OR SHORTNE... Start Date: 05/29/21 Status: Ordered calcipotriene 0.005% topical cream 1 application, Topically, 2 times a day, # 60 Gm, 11 Refills, Maintenance, 10/31/20 14:14:00 EDT, Cream, [facility] #[id number], Partial fill upon patient request if the prescription is for a schedule II opioid drug., 1 application Topically 2 ti... Start Date: 10/31/20 Status: Ordered chlorthalidone 25 mg oral tablet 1, tablet, By Mouth, Daily, # 90 tablet, Refills 3, Route to Pharmacy Electronically, [facility], 165, cm, 06/25/21 11:35:00 EST, Height, 127, kg, 02/03/20 14:39:00 EDT, Dry Weight Start Date: 07/09/21 Status: Ordered colchicine 0.6 mg oral tablet 0.6 mg, 1, tablet, By Mouth, Daily, # 30 tablet, Refills 11, Tot. Refills 11, Maintenance, :00:00 EDT, Route to Pharmacy Electronically, [facility], Partial fill upon patient request if the prescription is for a schedule II opioid dr... Start Date: 10/30/21 Status: Ordered cyclobenzaprine 10 mg oral tablet See Instructions, PRN, 1 tablet By Mouth 3 times a day as needed, # 20 tablet, Refills 0, Tot. Refills 0, Maintenance, for spasm, 11/08/21 10:23:00 EDT, Instructions Replace Required Details, Route to Pharmacy Electronically, [id number]... Start Date: 11/08/21 Status: Ordered Disposable [...] 11 Refills, Maintenance, 06/25/21 12:00:00 EST, Capsule, [facility], Partial fill upon patient request if [...] Gm, 3 Refills, Maintenance, 06/22/20 14:58:00 EST, [id number], 165, cm, 06/07/20 13:52:00 EST, Height, 127, [...] Replace Required Details, Route to Pharmacy Electronically, [facility], [place]... Start Date: 09/05/21 Status: Ordered [...] Replace Required Details, Route to Pharmacy Electronically, [facility], 165, cm, 06/25/21 11:35:00 EST, Height, [...] tablet, 6Refills, Maintenance, 05/21/21 11:19:00 EDT, Tablet, [facility], Partial fill upon patient request if the prescription is for a schedule II... Start Date: 05/21/21 Status: Ordered methenamine hippurate 1 gm oral tablet 1 tablet = 1 Gm, By Mouth, 2 times a day, # 60 tablet, 11 Refills, Maintenance, 07/05/21 14:00:00 EST, [facility], Partial fill upon patient request if the prescription is for a schedule II opioid drug., 165, cm, 02/28/21 14:22:00 EDT, Height,... Start Date: 07/05/21 Status: Ordered Mitigare 0.6 mg oral capsule 1 capsule, By Mouth, Daily, # 30 capsule, 11 Refills, Maintenance, 12/31/20 16:51:00 EDT, [facility] #[id number], 165, cm, 11/19/20 11:32:00 EDT, Height, 127, kg, 02/03/20 14:39:00 EDT, Dry Weight Start Date: 12/31/20 Status: Ordered NuLYTELY with Flavor Packs oral powder for reconstitution 240 mL, By Mouth, Every 10 minutes, # 1 each, 0 Refills, Maintenance, 10/25/21 10:39:00 EDT, REC Powder, [facility], Partial fill upon patient request if the prescription is for a schedule IIopioid drug., 240 mL By Mouth Every 10 minutes, 165... Start Date: 10/25/21 Status: Ordered penicillin V potassium 250 mg oral tablet 1 tablet = 250 mg, By Mouth, 2 times a day, Cellulitis prophylaxis, # 60 tablet, 11 Refills, Maintenance, 10/30/20 12:09:00 EDT, [id number], 165, cm, 10/19/20 8:59:00 EDT, Height, 127, kg, 02/03/20 14:39:00 EDT, Dry Weight Start Date: 10/30/20 Status: Ordered propranolol 20 mg oral tablet 20 mg, 1, tablet, By Mouth, 2 times a day, Stop metoprolol, # 60 tablet, Refills 5, Tot. Refills 5,Maintenance, 09/05/21 6:13:00 EST, Route to Pharmacy Electronically, [facility], Partial fill upon patient request if the prescription is for a... Start Date: 09/05/21 Status: Ordered risperiDONE 1 mg oral tablet take 1 tablet by mouth twice a day Start Date: 05/23/19 Status: Ordered rOPINIRole 0.5 mg oral tablet 1 tablet, By Mouth, 3 times a day, # 90 tablet, 5 Refills, 11/08/21 9:01:00 EDT, [facility], 165, cm, 11/04/21 8:42:00 EDT, Height, 127, kg, 02/03/20 14:39:00 EDT, Dry Weight Start Date: 11/08/21 Status: Ordered rosuvastatin 10 mg oral tablet See Instructions, TAKE 1 TABLET BY MOUTH DAILY, # 90 tablet, 1 Refills, Maintenance, 10/18/21 21:30:00 EDT, [facility], 165, cm, 09/04/21 14:01:00 EST, Height, 127, kg, 02/03/20 14:39:00 EDT,Dry Weight Start Date: 10/18/21 Status: Ordered warfarin 2.5 mg oral tablet See Instructions, Dosing Subject To Change per INR Result per MD, # 30 each, 6 Refills, Maintenance, 06/12/21 17:09:00 EST, Tablet, [facility], Dosing Subject To Change per INR Result per MD,165, cm, 05/21/21 10:54:00 EDT, Height, 127, kg, 07... 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
--- OUTSIDE RECORDS SUMMARY | 2024-01-02 21:31 | XMS_ITS | Continuity of Care Document ---
Author Organization [facility] Buck Nolberto Address [address] [place] [address]- Care Team Providers Care Forensic Dna Analyst Name Role Phone Radha GRIDER, Fuentes Kenny Primary Care Physician [phone] [facility] Date(s): 12/19/20 - 01/18/21 [facility] Adult [address] [place] [address]- Allergies, Adverse Reactions, Alerts Substance Reaction Severity [...] influenza virus vaccine, inactivated 5 06/07/13 Gi cotavio influenza virus vaccine, inactivated 04/09/11 Jarrett rded [...] B adult vaccine 06/14/02 Recorded 1Result Comment: [id number] 2Result Comment: [id number] 3Result Comment: [07/08/2017] [id number] 4Admin Note: [facility] 5Admin Note: [facility] [...] 11 Refills, Maintenance, 10/31/20 14:14:00 EDT, Cream, [facility] #[id number], Partial fill upon patient request if the [...] 11/27/20 10:09:00 EDT, Route to Pharmacy Electronically, [email or web address] #[id number], please schedule appt for further refills, 165, cm, 11/19/20 11:32:00 EDT, Hei... Start Date: 11/27/20 Status: Ordered Claritin 10 mg oral tablet 10 mg, 1, tablet, By Mouth, Daily, for 90 days, # 90 tablet, Refills 3, Tot. Refills 3, Acute 07/28/21 15:22:00 EST, 08/02/20 15:22:00 EST, Route to Pharmacy Electronically, [email or web address] #[id number], 165, cm, 07/31/20 14:32:00 EST, Height, 127, [...] PMR, history of smoking fax to : [phone], 04... Start Date: 10/26/20 Status: Ordered Disposable [...] Gm, 3 Refills, Maintenance, 06/22/20 14:58:00 EST, [facility] #[id number], 165, cm, 06/07/20 13:52:00 EST, Height, 127, [...] mL, 5 Refills, Maintenance, 10/01/18 10:08:42 EST, [facility], 2 sprays Nares, Both 2 times a [...] 08/02/20 16:13:00 EST, Route to Pharmacy Electronically, [facility] #[id number], D/C RX ON FILE FOR CLARITAN, 165, [...] tablet, 1 Refills, Maintenance, 07/12/20 13:56:00 EST, [email or web address] #[id number], Partial fill upon patient request if the prescription is for a schedule II opioid drug., 165, cm, 07/11/20 15:24:00 EST,... Start Date: 07/12/20 Stop Date: 07/05/21 Status: Ordered metoprolol 25 mg oral tablet 25 mg, 1, tablet, By Mouth, 2 times a day, # 60 tablet, Refills 5, Tot. Refills 5, Maintenance, 09/22/20 13:59:00 EST, Route to Pharmacy Electronically, [email or web address] #[id number], 165, cm, 07/31/2113:32:00 EST, Height, 127, kg, 02/03/20 14:39:00 ED... Start Date: 09/22/20 Status: Ordered Mitigare 0.6 mg oral capsule 1 capsule, By Mouth, Daily, # 30 capsule, 11 Refills, Maintenance, 12/31/20 16:51:00 EDT, [facility] #[id number], 165, cm, 11/19/20 11:32:00 EDT, Height, 127, [...] 0 Refills, Maintenance, 06/18/20 16:57:00 EST, Patch, [facility] #[id number], Partial fill upon patient request, 165, cm, 06/07/20 13:52:00 EST, Height, 127, kg, 02/03/20 14:39:00 EDT, Dry Weight Start Date: 06/18/20 Stop Date: 07/30/20 Status: Ordered NuLYTELY with Flavor Packs oral powder for reconstitution See Instructions, Drink 240mL every 15-20 minutes until first half is gone. Repeat 6 hours prior toprocedure., # 4,000 mL, 0 Refills, Maintenance, 06/28/20 17:09:00 EST, [email or web address] #[id number],Partial fill upon patient request if the prescript... Start Date: 06/28/20 Status: Ordered oxyCODONE 10 mg oral tablet 1 tablet = 10 mg, By Mouth, Every 8 hours, DX Z79.891 G89.29 M47.816 OK TO FILL LESS THAN PRESCRIBED AMOUNT, # 84 tablet, 0 Refills, Maintenance, 12/31/20 16:45:00 EDT, Tablet, [facility] #[id number], 01/01/21, 165, cm, 11/19/20 11:32:00 EDT, He... Start Date: 12/31/20 Stop Date: 01/28/21 Status: Ordered penicillin V potassium 250 mg oral tablet 1 tablet = 250 mg, By Mouth, 2 times a day, Cellulitis prophylaxis, # 60 tablet, 11 Refills, Maintenance, 10/30/20 12:09:00 EDT, [facility] #[id number], 165, cm, 10/19/20 8:59:00 EDT, Height, 127, kg, 02/03/20 14:39:00 EDT, Dry Weight Start Date: 10/30/20 Status: Ordered predniSONE 5 mg oral tablet 1 tablet = 5 mg, By Mouth, Daily, # 30 tablet, 0 Refills, Maintenance, 01/11/21 14:20:00 EDT, Tablet, [facility] #[id number], Partial fill upon patient request if the [...] 5 Refills, Maintenance, 04/30/20 15:13:00 EDT, Tablet, [email or web address] #[id number], 165, cm, 04/30/20 14:30:00 EDT, Height, 127, kg, 02/03/20 14:39:00 EDT, Dry Weight Start Date: 04/30/20 Status: Ordered rosuvastatin 10 mg oral tablet 1 tablet = 10 mg, By Mouth, Daily, # 90 tablet, 3 Refills, Maintenance, 05/03/20 16:35:00 EDT, Tablet, [facility] #[id number], d/c rx for capsules, 165, cm, 04/30/20 14:30:00 EDT, Height, 127, kg, 02/03/20 14:39:00 EDT, Dry Weight Start Date: 05/03/20 Status: Ordered Ventolin HFA 108 mcg/inh inhalation aerosol with adapter 2 puffs, Inhalation, Every 4 hours, PRN Wheezing/Shortness of Breath, # 1 each, 5 Refills, Soft Stop, 11/08/20 8:46:00 EDT, [facility] #[id number], 165, cm, 10/19/20 8:59:00 EDT, Height, 127, kg, 02/03/20 14:39:00 EDT, Dry Weight Start Date: 11/08/20 Status: Ordered warfarin 5 mg oral tablet 1 tablet = 5 mg, By Mouth, Daily, dosing subject to change pending inr lab values, # 30 tablet, 11 Refills, Maintenance, 08/31/20 15:36:00 EST, Tablet, [email or web address] #[id number], 165, cm, 07/31/20 14:32:00 EST, Height, 127, [...] long-term use(Confirmed) Active 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
--- OUTSIDE RECORDS SUMMARY | 2024-01-02 21:31 | XMS_ITS | Continuity of Care Document ---
Author Organization [facility] Nolberto Address [address] [place] [address]- Care Team Providers Care Building Maintenance Worker Name Role Phone Krishan GRIDER, Eulogio Molina Primary Care Physician [phone] [place] [facility] [place] 12/13[place]21 - 01/12/22 [facility] Adult [address] [place] [address]- Allergies, Adverse Reactions, Alerts Substance Reaction Severity Status Adhesive Bandage Active Dust copd exac/sinus congestion A ctive Immunizations Given and Recorded Vaccine Date Status Refusal Reason SARS-CoV-2 mRNA (uoejbmb-ufmq-tmbvx) vax 08/30/21 Recorded influenza virus vaccine, inactivated [...] B adult vaccine 06/14/02 Recorded 1Result Comment: [id number] 2Result Comment: [id number] 3Result Comment: [id number] 4Result Comment: [07/08/2017] [id number] 5Admin Note: [facility] 6Admin Note: [facility] [...] 8.5 Gm, 5 Refills, 05/29/21 17:13:00 EDT, [facility] #[id number], 17, INHALE 2 PUFFS BY MOUTH EVERY [...] 0 Refills, Maintenance, 01/11/22 7:25:00 EDT, Capsule, [facility], Partial fill upon [...] Route to Pharmacy Electronically, [facility], 165, cm, 01/06/22 14:35:00 EDT, Height, 102.1, kg, ... Start Date: 01/09/22 Status: Ordered colchicine 0.6 mg oral tablet 0.6 mg, 1, tablet, By Mouth, Daily, # 30 tablet, Refills 11, Tot. Refills 11, Maintenance, :00:00 EDT, Route to Pharmacy Electronically, [facility], Partial fill upon patient [...] 01/11/22 7:25:00 EDT, Route to Pharmacy Electronically, [facility], Partial fill upon patient request if the prescri... Start Date: 01/11/22 Stop Date: 02/10/22 Status: Ordered duloxetine 20 mg oral enteric coated capsule 2 capsule = 40 mg, By Mouth, Daily at bedtime, # 60 capsule, 11 Refills, Maintenance, 06/25/21 12:00:00 EST, Capsule, [facility], Partial fill upon patient [...] 01/18/22 7:26:00 EDT, 01/11/22 7:26:00 EDT, Injection, [facility], Partial fill upon patient request... Start [...] 01/16/22 7:27:00 EDT, 01/11/22 7:26:00 EDT, Tablet, [facility], Partial fill upon patient request if the prescription... Start Date: 01/11/22 Stop Date: 01/16/22 Status: Ordered loratadine 10 mg oral tablet See Instructions, TAKE 1 TABLET BY MOUTH ONCE A DAY, # 90 tablet, Refills 1, Instructions Replace Required Details, Route to Pharmacy Electronically, [facility], 165, cm, 06/25/21 11:35:00 [...] 12/11/21 13:41:00 EDT, Route to Pharmacy Electronically, [facility], Partial fill upon patient requestif the [...] 03/05/22 16:36:00 EDT, 12/03/21 16:35:00 EDT, Gum, [facility] #[id number], Partial fill uponpatient request if the prescription [...] 60 tablet, 6 Refills, [facility], 165, cm, 11/08/21 10:02:00 EDT, Height, 127, kg, 02/03/20 14:39:00 EDT, Dry Weight Start Date: 11/15/21 Status: Ordered rOPINIRole 0.5 mg oral tablet 1 tablet, By Mouth, 3 times a day, # 90 tablet, 5 Refills, 11/08/21 9:01:00 EDT, [facility], 165, cm, 11/04/21 8:42:00 EDT, Height, 127, kg, 02/03/20 14:39:00 EDT, Dry Weight Start Date: 11/08/21 Status: Ordered rosuvastatin 10 mg oral tablet See Instructions, TAKE 1 TABLET BY MOUTH DAILY, # 90 tablet, 1 Refills, Maintenance, 10/18/21 21:30:00 EDT, [facility], 165, cm, 09/04/21 14:01:00 [...] 01/18/22 7:28:00 EDT, 01/11/22 7:28:00 EDT, Tablet, [facility], Partial fill upon patient request if the prescription is... Start Date: 01/11/22 Stop Date: 01/18/22 Status: Ordered warfarin 1 mg oral tablet See Instructions, Take 1-10 tablets By Mouth Daily as directed by THOM, # 150 tablet, 0 Refills, Maintenance, 01/11/22 7:24:00 EDT, Tablet, [facility], Partial fill upon [...]
--- OUTSIDE RECORDS SUMMARY | 2024-01-02 21:31 | XMS_ITS | Continuity of Care Document ---
Author Organization [facility] Robin Jane Nolberto Address [address] [place] [address]- Care Team Providers Care Church Secretary Name Role Phone Kyle Ahumada DO Primary Care Physician [facility] Date[facility]): 03[facility]11/23 - 04/10/23 [facility] Robin Jane Adult [address] [place] [address]- Allergies, Adverse Reactions, Alerts Substance Reaction Severity [...] vaccine, inactivated 05/10/07 Jarrett rded SARS-CoV-2 mRNA ([id number]) vax 08/30/21 Recorded SARS-CoV-2 (COVID-19) mRNA BNT-162b2 vac 01/02/21 Recorded SARS-CoV-2 (COVID-19) mRNA BNT-162b2 vac 12/02/20 Recorded Fluvirin (oldterm) 8 03/22/15 Given Fluzone Preservative-Free (oldterm) 9 03/12/12 Giv en pneumococcal 23-valent vaccine 10/08/11 Given tetanus/diphtheria/pertussis, acel(Tdap) 09/08/11 Given tetanus/diphtheria/pertussis, acel(Tdap) 12/17/06 Recorded influ virus vac, H1N1, inactive(oldterm) 10 05/08/11 Given hepatitis B adult vaccine 06/14/02 Recorded 1Result Comment: [id number] 2Result Comment: [id number] 3Result Comment: [id number] 4Result Comment: [id number] 5Result Comment: [07/08/2017] 08118-095-27 6Admin Note: [facility] 7Admin Note: [facility] 04-08 8Admin Note: Given at [facility] 9Admin Note: 03-11-12 GIVEN AT [facility] 10Admin Note: rcvd elsewhere Medications acetaminophen 325 mg oral tablet 650 mg, 2, tablet, By Mouth, Every 6 hours, PRN, # 100 tablet, Refills 1, Tot. Refills 1, Maintenance, Pain , Moderate, 03/13/23 16:59:00 EDT, Route to Pharmacy Electronically, [facility], Partial fill upon patient request if the prescription... Start Date: 03/13/23 Status: Ordered Albuterol (Eqv-ProAir HFA) 90 mcg/inh inhalation aerosol See Instructions, INHALE 2 PUFFS BY MOUTH EVERY FOUR HOURS NEEDED FOR WHEEZING OR SHORTNESS OF BREATH, # 8.5 Gm, 5 Refills, Maintenance, 03/13/23 9:55:00 [facility], 30, INHALE 2 PUFFS BY MOUTH [...] 03/12/23 15:30:00 EDT, [facility], 160, cm, 03/02/23 9:56:00 EDT, Height, 98.8, k... Start Date: 03/12/23 Status: Ordered cloNIDine 0.1 mg oral tablet 0.1 mg, 1, tablet, By Mouth, 2 times a day, PRN, # 60 tablet, Refills 2, Tot. Refills 2, Maintenance, Anxiety, 03/12/23 16:38:00 EDT, Route to Pharmacy Electronically, [facility], Partial fill upon patient request if the prescription is for a... Start Date: 03/12/23 Status: Ordered cyclobenzaprine 5 mg oral tablet 1 tablet = 5 mg, By Mouth, 3 times a day, PRN Spasm, can increase to 2 three time a day if needed, # 90 tablet, 2 Refills, Maintenance, 04/02/23 12:59:00 EDT, Tablet, [facility], Partial fillupon patient request if the prescription is for a s... Start Date: 04/02/23 Status: Ordered DilTIAZem (Eqv-Dilacor XR) 240 mg/24 hours oral capsule, extended release 1 capsule = 240 mg, By Mouth, Daily, # 90 capsule, 3 Refills, Maintenance, 03/13/23 17:04:00 EDT, CD Capsule, [facility], Partial fill upon patient request if the prescription is for a schedule II opioid drug., 160, cm, 03/02/23 9:56:00 EDT, H... Start Date: 03/13/23 Status: Ordered docusate sodium 100 mg oral capsule 100 mg, 1, capsule, By Mouth, 2 times a day, hold for loose stool, # 180 capsule, Refills 3, Tot. Refills 3, Maintenance, 03/13/23 16:56:00 EDT, Route to Pharmacy Electronically, [facility], Partial fill upon patient request if the prescriptio... Start Date: 03/13/23 Stop Date: 04/12/23 Status: Ordered duloxetine 20 mg oral enteric coated capsule 2 capsule = 40 mg, By Mouth, Daily at bedtime, # 60 capsule, 11 Refills, Maintenance, 06/25/21 12:00:00 EST, Capsule, [facility], Partial fill upon patient request if [...] 03/02/23 18:12:00 EDT, Route to Pharmacy Electronically, [facility], Partial fill upon patient request if the prescription is for a schedule II opioid drug... Start Date: 03/02/23 Status: Ordered ipratropium nasal 21 mcg/inh spray 2 sprays = 42 mcg, Nares, Both, 2 times a day, # 30 mL, 5 Refills, Maintenance, 03/13/23 16:58:00 EDT, [place], [facility], Partial fill upon patient request if [...] 02/07/23 18:12:00 EDT, Route to Pharmacy Electronically, [facility], 160, cm, 12/16/22 10:46:00 EDT, Height, [...] 3 Refills, Maintenance, 03/13/23 17:03:00 EDT, Patch, [facility], Partial fill upon patient request if the prescription is for a schedule II opioid drug., 1 patch Topically Daily, 160, cm, 03/02/23 9:56:0... Start Date: 03/13/23 Status: Ordered penicillin V potassium 250 mg oral tablet 1 tablet, By Mouth, 2 times a day, ^1R1,1R4., # 60 tablet, 5 Refills, Maintenance, 04/10/23 16:03:00 EDT, [facility], 160, cm, 04/02/23 12:45:00 EDT, Height, 98.8, kg, 07/17/22 8:58:00 EST, Dry Weight Start Date: 04/10/23 Status: Ordered rOPINIRole 0.5 mg oral tablet 1 tablet, By Mouth, 3 times a day, ^1R1,1R3,1R4., # 90 tablet, 5 Refills, Maintenance, 12/24/22 14:21:00 EDT, [facility], 160, cm, 12/16/22 10:46:00 EDT, Height, 98.8, kg, 07/17/22 8:58:00 EST, Dry Weight Start Date: 12/24/22 Status: Ordered rosuvastatin 10 mg oral tablet 1 tablet, By Mouth, Daily, ^1R1., # 30 tablet, 5 Refills, Maintenance, 02/07/23 18:12:00 EDT, [facility], 160, cm, 12/16/22 10:46:00 EDT, Height, 98.8, kg, 07/17/22 8:58:00 EST, Dry Weight Start Date: 02/07/23 Status: Ordered Symbicort 80mcg/4.5mcg Inhaler See Instructions, INHALE 2 PUFFS BY MOUTH TWICE A DAY RINSE MOUTH AND THROAT AFTER USE, # 10.2 Gm, Refills 5, Tot. Refills 5, Maintenance, 03/13/23 10:13:00 EDT, Instructions Replace Required Details, Route to Pharmacy Electronically, [id number] 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 PCO Associate Professional Member Role: Primary Care Nurse Address: Address: [address] [facility] [place] [address]- [place] Name: Marley Alejo RN Position: S RN Member Role: Primary Care Nurse Name: Alma Delia Fonseca PharmD Position: [facility] BH Associate Professional Member Role: Lifetime Consulting Provider Address: Address: [address] [facility] [place] [address]- [place] Name: Yolis Mattson RN Position: [facility] RN Member Role: Primary Care Nurse Name: Priscila Garzon RN Position: [facility] RN Member Role: Primary Care Nurse Name: Kyle Ahumada DO Position: [facility] Physician - Primary Care Member Role: PCP Address: Address: [address] [place] [address]- [place] Name: Renea Mart RN Position: [facility] RN Member Role: Primary Care Nurse Care Team Related Persons Name: FAUZIA JANSEN Address: home [address] [place] [address] Name: AURELIA SHETH Address: home [address] [place] [address] Name: BRE OSORIO Address: home [address] [place] [address]
--- OUTSIDE RECORDS SUMMARY | 2024-01-02 21:31 | XMS_ITS | Continuity of Care Document ---
Author Organization [facility] Robin Jane Nolberto Address [address] [place] [address]- Care Team Providers Care Program Dir Name Role Phone Pasha ROMERO, Marilyn Willett Primary Care Physician [phone] [facility] Date[facility]s): 08/02/21 - 09/01/21 [facility] Robin Jane Adult [address] [place] [address]- Allergies, Adverse Reactions, Alerts Substance Reaction Severity [...] B adult vaccine 06/14/02 Recorded 1Result Comment: [id number] 2Result Comment: [id number] 3Result Comment: [id number] 4Result Comment: [07/08/2017] [id number] 5Admin Note: [facility] 6Admin Note: [facility] [...] 8.5 Gm, 5 Refills, 05/29/21 17:13:00 EDT, [id number], 17, INHALE 2 PUFFS BY MOUTH EVERY [...] Maintenance, 12/26/17 13:44:20 EDT, Compound Start Date: 6/2/18 Status: Ordered calcipotriene 0.005% topical cream 1 application, Topically, 2 times a day, # 60 Gm, 11 Refills, Maintenance, 10/31/20 14:14:00 EDT, Cream, [id number], Partial fill upon patient request if the [...] tablet, Refills 3, Route to Pharmacy Electronically, [facility], 165, cm, 06/25/21 11:35:00 EST, Height, [...] PMR, history of smoking fax to : [phone], 04... Start Date: 10/26/20 Status: Ordered Disposable [...] 11 Refills, Maintenance, 06/25/21 12:00:00 EST, Capsule, [facility], Partial fill upon patient request [...] Gm, 3 Refills, Maintenance, 06/22/20 14:58:00 EST, [id number], 165, cm, 06/07/20 13:52:00 EST, Height, 127, [...] Refills, Maintenance, 05/24/21 16:13:00 EDT, REC Powder, [id number], Partial fill upon patient request if the [...] mL, 5 Refills, Maintenance, 10/01/18 10:08:42 EST, [place], 2 sprays Nares, Both 2 times a [...] Replace Required Details, Route to Pharmacy Electronically, [facility], 165, cm, 06/25/21 11:35:00 EST, [...] tablet, 6Refills, Maintenance, 05/21/21 11:19:00 EDT, Tablet, [facility], Partial fill upon patient request if the prescription is for a schedule II... Start Date: 05/21/21 Status: Ordered methenamine hippurate 1 gm oral tablet 1 tablet = 1 Gm, By Mouth, 2 times a day, # 60 tablet, 11 Refills, Maintenance, 07/05/21 14:00:00 EST, [facility], Partial fill upon patient request if the prescription is for a schedule II opioid drug., 165, cm, 02/28/21 14:22:00 EDT, Height,... Start Date: 07/05/21 Status: Ordered Metoprolol Tartrate 25 mg oral tablet 1 tablet, By Mouth, 2 times a day, # 60 tablet, 3 Refills, [facility], 165, cm, 06/25/21 11:35:00 EST, Height, 127, kg, 02/03/20 14:39:00 EDT, Dry Weight Start Date: 07/09/21 Status: Ordered Mitigare 0.6 mg oral capsule 1 capsule, By Mouth, Daily, # 30 capsule, 11 Refills, Maintenance, 12/31/20 16:51:00 EDT, [facility] #[id number], 165, cm, 11/19/20 11:32:00 EDT, Height, 127, [...] 0 Refills, Maintenance, 04/11/21 9:00:00 EDT, Patch, [facility], Partial fill upon patient request, 165, cm, 02/28/21 14:22:00 EDT, Height, 127, kg, 02/03/20 14:39:00 EDT, Dry Weight Start Date: 04/11/21 Stop Date: 05/23/21 Status: Ordered NuLYTELY with Flavor Packs oral powder for reconstitution See Instructions, Drink 240mL every 15-20 minutes until first half is gone. Repeat 6 hours prior toprocedure., # 4,000 mL, 0 Refills, Maintenance, 06/28/20 17:09:00 [facility] #[id number],Partial fill upon patient request if the prescript... [...] tablet, 11 Refills, Maintenance, 10/30/20 12:09:00 EDT, [id number], 165, cm, 10/19/20 8:59:00 EDT, Height, 127, kg, 02/03/20 14:39:00 EDT, Dry Weight Start Date: 10/30/20 Status: Ordered predniSONE 5 mg oral tablet 1 tablet = 5 mg, By Mouth, Daily, # 30 tablet, 0 Refills, Maintenance, 01/11/21 14:20:00 EDT, Tablet, [id number], Partial fill upon patient request if the prescription is for a schedule II opioid drug., 165, cm, 01/11/21 14:05:00 EDT,... Start Date: 01/11/21 Status: Ordered propranolol 20 mg oral tablet 20 mg, 1, tablet, By Mouth, 2 times a day, # 60 tablet, Refills 5, Tot. Refills 5, Maintenance, 06/25/21 11:57:00 EST, Route to Pharmacy Electronically, [facility], Partial fill upon patient request [...] a day, # 90 tablet, 3 Refills, [facility], 165, cm, 06/25/21 11:35:00 EST, Height, 127, kg, 02/03/20 14:39:00 EDT, Dry Weight Start Date: 07/09/21 Status: Ordered rosuvastatin 10 mg oral tablet 1 tablet = 10 mg, By Mouth, Daily, # 90 tablet, 1 Refills, Maintenance, 05/20/21 15:53:00 EDT, Tablet, [facility], d/c rx for capsules, 165, cm, 02/28/21 14:22:00 EDT, Height, 127, kg, 02/03/20 14:39:00 EDT, Dry Weight Start Date: 05/20/21 Status: Ordered Trulicity Pen 1.5 mg/0.5 mL subcutaneous solution 0.5 mL = 1.5 mg, Subcutaneous Injection, Every week, take on same day every week, rotate injection sites E11.9, # 2 mL, 6 Refills, Maintenance, 07/23/21 10:03:00 EST, Solution, [id number], Partial fill upon patient request if the p... Start Date: 07/23/21 Status: Ordered warfarin 2.5 mg oral tablet See Instructions, Dosing Subject To Change per INR Result per MD, # 30 each, 6 Refills, Maintenance, 06/12/21 17:09:00 EST, Tablet, [facility], Dosing Subject To Change per INR Result per MD,165, cm, 05/21/21 10:54:00 EDT, Height, 127, kg, 07... Start Date: 06/12/21 Status: Ordered warfarin 5 mg oral tablet See Instructions, Dosing Subject To Change Per INR Result per MD, # 30 each, 6 Refills, Maintenance, 06/12/21 17:05:00 EST, Tablet, [facility], PLEASE GIVE BOTH 5MG TABLETS [...]
--- OUTSIDE RECORDS SUMMARY | 2024-01-02 21:31 | XMS_ITS | Continuity of Care Document ---
Author Organization [facility] Buck Nolberto Address [address] [place] [address]- Care Team Providers Care Slip Tender Name Role Phone Eulogio Nickerson MD Primary Care Physician [phone] Encounter [facility] Date(s): 05/05/22 - 05/12/22 [facility] Adult [address] [place] [address]- Attending Physician: Eulogio Nickerson MD Allergies, Adverse [...] vaccine, inactivated 05/10/07 Jarrett rded SARS-CoV-2 mRNA ([id number]) vax 08/30/21 Recorded SARS-CoV-2 (COVID-19) mRNA BNT-162b2 vac 01/02/21 Recorded SARS-CoV-2 (COVID-19) mRNA BNT-162b2 vac 12/02/20 Recorded Fluvirin (oldterm) 8 03/22/15 Given Fluzone Preservative-Free (oldterm) 9 03/12/12 Giv en pneumococcal 23-valent vaccine 10/08/11 Given tetanus/diphtheria/pertussis, acel(Tdap) 09/08/11 Given tetanus/diphtheria/pertussis, acel(Tdap) 12/17/06 Recorded influ virus vac, H1N1, inactive(oldterm) 10 05/08/11 Given hepatitis B adult vaccine 06/14/02 Recorded 1Result Comment: [id number] 2Result Comment: [id number] 3Result Comment: [id number] 4Result Comment: [id number] 5Result Comment: [07/08/2017] [id number] 6Admin Note: [facility] 7Admin Note: [facility] [...] Gm, 4 Refills, Maintenance, 04/28/22 13:11:00 EDT, [facility], 17, INHALE 2 PUFFS BY MOUTH EVERY FOUR HOURS NEEDED FOR WHEEZING... Start Date: 04/28/22 Status: Ordered cloNIDine 0.1 mg oral tablet See Instructions, TAKE 1 TABLET BY MOUTH TWICE A DAY NEEDED FOR FOR ANXIETY (VIAL), # 60 tablet,Refills 1, Maintenance, 04/28/22 13:11:00 EDT, Instructions Replace Required Details, Route to Pharmacy Electronically, [facility], 159, cm, 06... Start Date: 04/28/22 Status: Ordered colchicine 0.6 mg oral tablet 0.6 mg, 1, tablet, By Mouth, Daily, # 30 tablet, Refills 11, Tot. Refills 11, Maintenance, :00:00 EDT, Route to Pharmacy Electronically, [facility], Partial fill upon patient [...] 7:25:00 EDT, Route to Pharmacy Electronically, [facility], Partial fill upon patient request if the prescri... Start Date: 01/11/22 Stop Date: 02/10/22 Status: Ordered duloxetine 20 mg oral enteric coated capsule 2 capsule = 40 mg, By Mouth, Daily at bedtime, # 60 capsule, 11 Refills, Maintenance, 06/25/21 12:00:00 EST, Capsule, [facility], Partial fill upon patient [...] Replace Required Details, Route to Pharmacy Electronically, [facility], 165, cm, 06/25/21 11:35:00 EST, Height, 127, kg, 02/03/20 14:39:00 EDT, Dry Weight Start Date: 08/05/21 Status: Ordered penicillin V potassium 250 mg oral tablet 1 tablet, By Mouth, 2 times a day, CELLULITIS PROPHYLAXIS., # 60 tablet, 6 Refills, [facility], 165, cm, 11/08/21 10:02:00 EDT, Height, 127, kg, 02/03/20 14:39:00 EDT, Dry Weight Start Date: 11/15/21 Status: Ordered rOPINIRole 0.5 mg oral tablet 1 tablet, By Mouth, 3 times a day, # 90 tablet, 5 Refills, 03/07/22 6:14:00 EDT, [facility], 159, cm, 01/11/22 15:15:00 EDT, Height, 98.8, kg, 01/10/22 9:12:00 EDT, Dry Weight Start Date: 03/07/22 Status: Ordered rosuvastatin 10 mg oral tablet See Instructions, TAKE 1 TABLET BY MOUTH DAILY, # 90 tablet, 1 Refills, Maintenance, 04/04/22 11:35:00 EDT, [facility], 159, cm, 01/11/22 15:15:00 EDT, Height, 98.8, kg, 01/10/22 9:12:00 EDT,Dry Weight Start Date: 04/04/22 Status: Ordered Symbicort 80mcg/4.5mcg Inhaler See Instructions, INHALE 2 PUFFS BY MOUTH TWICE A DAY RINSE MOUTH AND THROAT AFTER USE, # 10.2 Gm, Refills 5, Instructions Replace Required Details, Route to Pharmacy Electronically, [id number], [facility], 159, cm, 01/11/22 15:15:00 EDT... Start Date: 02/13/22 Status: Ordered warfarin 1 mg oral tablet See Instructions, Take 1-10 tablets By Mouth Daily as directed by THOM, # 150 tablet, 0 Refills, Maintenance, 01/11/22 7:24:00 EDT, Tablet, [facility], Partial fill upon [...] recent to oldest [Reference Range]: 1 Height 159 cm (05/05/22 11:32 AM) Weight 101.0 kg (05/05/22 11:32 AM) Oxygen Saturation [94-100 %] 97 % (05/05/22 11:32 AM) Pulse Rate [55-90 bpm] 88 bpm (05/05/22 11:32 AM) Body Mass Index [18.5-24.99 kg/m2] 39.95 kg/m2 *>HHI* (05/05/22 11:32 AM) Blood Pressure [90-138/55-84 mm Hg] 122/ 87mm Hg (05/05/22 11:32 AM) Mode of Delivery (Oxygen) Room air (05/05/22 11:32 AM) Blood pressure sites Arm, left (05/05/22 11:32 AM) Weight Obtained Via Standing scale (05/05/22 11:32 AM) Social History Social History Type Response Smoking Status 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 Female Patient Care team information Personnel Name: Krishan GRIDER, Eulogio Molina Address: Address: [address] [place] [id number]
--- OUTSIDE RECORDS SUMMARY | 2024-01-02 21:31 | XMS_ITS | Continuity of Care Document ---
Author Organization [facility] Address [address] [place] [address]- Care Team Providers Care Employee Wellness/Fitness Coordinator Name Role Phone Krishan GRIDER, Eulogio Molina Primary Care Physician [phone] [facility] Date(s): 11/14/21 - 12/14/21 [facility] [address] [place] [id number] Allergies, Adverse Reactions, Alerts Substance Reaction Severity Status Adhesive Bandage Active Dust copd exac/sinus congestion A ctive Immunizations Given and Recorded Vaccine Date Status Refusal Reason SARS-CoV-2 mRNA (vvieqxk-[id number]) vax 08/30/21 Recorded influenza virus vaccine, inactivated [...] B adult vaccine 06/14/02 Recorded 1Result Comment: [id number] 2Result Comment: [id number] 3Result Comment: [id number] 4Result Comment: [07/08/2017] [id number] 5Admin Note: [facility] 6Admin Note: [facility] [...] 8.5 Gm, 5 Refills, 05/29/21 17:13:00 EDT, [id number], 17, INHALE 2 PUFFS BY MOUTH EVERY 4 HOURS NEEDED FOR WHEEZING OR SHORTNE... Start Date: 05/29/21 Status: Ordered calcipotriene 0.005% topical cream 1 application, Topically, 2 times a day, # 60 Gm, 11 Refills, Maintenance, 11/15/21 11:54:00 EDT, Cream, [facility], Partial fill upon patient request if the prescription is for a schedule IIopioid drug., 1 application Topically 2 times a day... Start Date: 11/15/21 Status: Ordered colchicine 0.6 mg oral tablet 0.6 mg, 1, tablet, By Mouth, Daily, # 30 tablet, Refills 11, Tot. Refills 11, Maintenance, :00:00 EDT, Route to Pharmacy Electronically, [facility], Partial fill upon patient request if the prescription is for a schedule II opioid drTorey.. Start Date: 10/30/21 Status: Ordered cyclobenzaprine 10 mg oral tablet See Instructions, PRN, 1 tablet By Mouth 3 times a day as needed, # 20 tablet, Refills 0, Tot. Refills 0, Maintenance, for spasm, 11/08/21 10:23:00 EDT, Instructions Replace Required Details, Route to Pharmacy Electronically, [id number]... Start Date: 11/08/21 Status: Ordered digoxin 0.125 mg oral tablet 125 mcg, 1, tablet, By Mouth, Daily, # 90 tablet, Refills 1, Tot. Refills 1, Maintenance, 12/11/21 13:41:00 EDT, Route to Pharmacy Electronically, [facility], Partial fill upon patient request if the prescription is for a schedule II opioid drTorey.. Start Date: 12/11/21 Status: Ordered duloxetine 20 mg oral enteric coated capsule 2 capsule = 40 mg, By Mouth, Daily at bedtime, # 60 capsule, 11 Refills, Maintenance, 06/25/21 12:00:00 EST, Capsule, [facility], Partial fill upon patient request if [...] 5 Refills, Maintenance, 11/18/21 13:49:00 EDT, Tablet, [facility], Partial fill upon patient request if [...] Replace Required Details, Route to Pharmacy Electronically, [facility], 165, cm, 06/25/21 11:35:00 EST, Height, 127, kg, 02/03/20 14:39:00 EDT, Dry Weight Start Date: 08/05/21 Status: Ordered metoprolol 100 mg oral tablet, extended release 100 mg, 1, tablet, By Mouth, Daily, # 90 tablet, Refills 1, Tot. Refills 1, Maintenance, 12/11/21 13:41:00 EDT, Route to Pharmacy Electronically, [facility], Partial fill upon patient requestif the prescription is for a schedule II opioid keanu... Start Date: 12/11/21 Status: Ordered nicotine 4 mg oral transmucosal gum 1 each = 4 mg, Chew, Every 2 hours, PRN as needed for smoking cessation, # 160 each, 2 Refills, Acute 03/05/22 16:36:00 EDT, 12/03/21 16:35:00 EDT, Gum, [facility] #[id number], Partial fill uponpatient request if the prescription is for a schedu... Start Date: 12/03/21 Stop Date: 03/05/22 Status: Ordered NuLYTELY with Flavor Packs oral powder for reconstitution 240 mL, By Mouth, Every 10 minutes, # 1 each, 0 Refills, Maintenance, 10/25/21 10:39:00 EDT, REC Powder, [facility], Partial fill upon patient request if the prescription is for a schedule IIopioid drug., 240 mL By Mouth Every 10 minutes, 165... Start Date: 10/25/21 Status: Ordered penicillin V potassium 250 mg oral tablet 1 tablet, By Mouth, 2 times a day, CELLULITIS PROPHYLAXIS., # 60 tablet, 6 Refills, [facility], 165, cm, 11/08/21 10:02:00 EDT, Height, 127, kg, 02/03/20 14:39:00 EDT, Dry Weight Start Date: 11/15/21 Status: Ordered rOPINIRole 0.5 mg oral tablet 1 tablet, By Mouth, 3 times a day, # 90 tablet, 5 Refills, 11/08/21 9:01:00 EDT, [facility], 165, cm, 11/04/21 8:42:00 EDT, Height, 127, kg, 02/03/20 14:39:00 EDT, Dry Weight Start Date: 11/08/21 Status: Ordered rosuvastatin 10 mg oral tablet See Instructions, TAKE 1 TABLET BY MOUTH DAILY, # 90 tablet, 1 Refills, Maintenance, 10/18/21 21:30:00 EDT, [facility], 165, cm, 09/04/21 14:01:00 EST, Height, 127, kg, 02/03/20 14:39:00 EDT,Dry Weight Start Date: 10/18/21 Status: Ordered warfarin 2.5 mg oral tablet See Instructions, Dosing Subject To Change per INR Result per MD, # 30 each, 6 Refills, Maintenance, 12/13/21 13:47:00 EDT, Tablet, [facility], Dosing Subject To Change per INR Result per MD,165, cm, 12/06/21 14:01:00 EDT, Height, 102.1, kg,... 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
--- OUTSIDE RECORDS SUMMARY | 2024-01-02 21:31 | XMS_ITS | Continuity of Care Document ---
Author Organization [facility] Buck Nolberto Address [address] [place] [address]- Care Team Providers Care Furniture Arranger Name Role Phone Krishan GRIDER, Eulogio Molina Primary Care Physician [facility] Date[facility]): 11/28/21 - 12/28/21 [facility] [place] Adult [address] [place] [address]- Allergies, Adverse Reactions, Alerts Substance Reaction Severity Status Adhesive Bandage Active Dust copd exac/sinus congestion A ctive Immunizations Given and Recorded Vaccine Date Status Refusal Reason SARS-CoV-2 mRNA ([id number]-[id number]-[id number]) vax 08/30/21 Recorded influenza virus vaccine, inactivated [...] B adult vaccine 06/14/02 Recorded 1Result Comment: [id number] 2Result Comment: [id number] 3Result Comment: [id number] 4Result Comment: [07/08/2017] [id number] 5Admin Note: [facility] 6Admin Note: [facility] [...] 8.5 Gm, 5 Refills, 05/29/21 17:13:00 EDT, [id number], 17, INHALE 2 PUFFS BY MOUTH EVERY 4 HOURS NEEDED FOR WHEEZING OR SHORTNE... Start Date: 05/29/21 Status: Ordered calcipotriene 0.005% topical cream 1 application, Topically, 2 times a day, # 60 Gm, 11 Refills, Maintenance, 11/15/21 11:54:00 EDT, Cream, [facility], Partial fill upon patient request if the prescription is for a schedule IIopioid drug., 1 application Topically 2 times a day... Start Date: 11/15/21 Status: Ordered colchicine 0.6 mg oral tablet 0.6 mg, 1, tablet, By Mouth, Daily, # 30 tablet, Refills 11, Tot. Refills 11, Maintenance, :00:00 EDT, Route to Pharmacy Electronically, [facility], Partial fill upon patient request if the prescription is for a schedule II opioid drTorey.. Start Date: 10/30/21 Status: Ordered cyclobenzaprine 10 mg oral tablet See Instructions, PRN, 1 tablet By Mouth 3 times a day as needed, # 20 tablet, Refills 0, Tot. Refills 0, Maintenance, for spasm, 11/08/21 10:23:00 EDT, Instructions Replace Required Details, Route to Pharmacy Electronically, [id number]... Start Date: 11/08/21 Status: Ordered digoxin 0.125 mg oral tablet 125 mcg, 1, tablet, By Mouth, Daily, # 90 tablet, Refills 1, Tot. Refills 1, Maintenance, 12/11/21 13:41:00 EDT, Route to Pharmacy Electronically, [facility], Partial fill upon patient request if the prescription is for a schedule II opioid drTorey.. Start Date: 12/11/21 Status: Ordered duloxetine 20 mg oral enteric coated capsule 2 capsule = 40 mg, By Mouth, Daily at bedtime, # 60 capsule, 11 Refills, Maintenance, 06/25/21 12:00:00 EST, Capsule, [facility], Partial fill upon patient request if [...] 5 Refills, Maintenance, 11/18/21 13:49:00 EDT, Tablet, [facility], Partial fill upon patient request if [...] Required Details, Route to Pharmacy Electronically, [facility], 165, cm, 06/25/21 11:35:00 EST, Height, 127, kg, 02/03/20 14:39:00 EDT, Dry Weight Start Date: 08/05/21 Status: Ordered metoprolol 100 mg oral tablet, extended release 100 mg, 1, tablet, By Mouth, Daily, # 90 tablet, Refills 1, Tot. Refills 1, Maintenance, 12/11/21 13:41:00 EDT, Route to Pharmacy Electronically, [facility], Partial fill upon patient requestif the prescription is for a schedule II opioid keanu... Start Date: 12/11/21 Status: Ordered nicotine 4 mg oral transmucosal gum 1 each = 4 mg, Chew, Every 2 hours, PRN as needed for smoking cessation, # 160 each, 2 Refills, Acute 03/05/22 16:36:00 EDT, 12/03/21 16:35:00 EDT, Gum, [facility][id number], Partial fill uponpatient request if the prescription is for a schedu... Start Date: 12/03/21 Stop Date: 03/05/22 Status: Ordered NuLYTELY with Flavor Packs oral powder for reconstitution 240 mL, By Mouth, Every 10 minutes, # 1 each, 0 Refills, Maintenance, 10/25/21 10:39:00 EDT, REC Powder, [facility], Partial fill upon patient request if the prescription is for a schedule IIopioid drug., 240 mL By Mouth Every 10 minutes, 165... Start Date: 10/25/21 Status: Ordered penicillin V potassium 250 mg oral tablet 1 tablet, By Mouth, 2 times a day, CELLULITIS PROPHYLAXIS., # 60 tablet, 6 Refills, [facility], 165, cm, 11/08/21 10:02:00 EDT, Height, 127, kg, 02/03/20 14:39:00 EDT, Dry Weight Start Date: 11/15/21 Status: Ordered rOPINIRole 0.5 mg oral tablet 1 tablet, By Mouth, 3 times a day, # 90 tablet, 5 Refills, 11/08/21 9:01:00 EDT, [facility], 165, cm, 11/04/21 8:42:00 EDT, Height, 127, kg, 02/03/20 14:39:00 EDT, Dry Weight Start Date: 11/08/21 Status: Ordered rosuvastatin 10 mg oral tablet See Instructions, TAKE 1 TABLET BY MOUTH DAILY, # 90 tablet, 1 Refills, Maintenance, 10/18/21 21:30:00 EDT, [facility], 165, cm, 09/04/21 14:01:00 EST, Height, [...] 6 Refills, Maintenance, 12/13/21 13:47:00 EDT, Tablet, [facility], Dosing Subject To Change per INR Result per MD,165, cm, 12/06/21 14:01:00 EDT, Height, 102.1, kg,... Start Date: 12/13/21 Status: Ordered warfarin 5 mg oral tablet See Instructions, Dosing Subject To Change Per INR Result per MD, # 30 each, 6 Refills, Maintenance, 12/13/21 14:01:00 EDT, Tablet, [facility], PLEASE GIVE BOTH 5MG TABLETS AND [...] long-term use(Confirmed) Active Gastric banding status(Confirmed) Active shelter current use of 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
--- OUTSIDE RECORDS SUMMARY | 2024-01-02 21:31 | XMS_ITS | Continuity of Care Document ---
Author Organization [facility] Robin Jane Nolberto Address [address] [place] [address]- Care Team Providers Care Metal Sander Name Role Phone Kyle Ahumada DO Primary Care Physician [phone] [facility] Date[facility]s): 06/15/23 - 07/15/23 [facility] Adult [address] [place] [address]- Allergies, Adverse Reactions, Alerts Substance Reaction Severity [...] vaccine, inactivated 05/10/07 Jarrett rded SARS-CoV-2 mRNA (vpvjbdp-kkit-nvxwb) vax 08/30/21 Recorded SARS-CoV-2 (COVID-19) mRNA BNT-162b2 vac 01/02/21 Recorded SARS-CoV-2 (COVID-19) mRNA BNT-162b2 vac 12/02/20 Recorded Fluvirin (oldterm) 10 03/22/15 Given Fluzone Preservative-Free (oldterm) 11 03/12/12 Gi octavio pneumococcal 23-valent vaccine 10/08/11 Given tetanus/diphtheria/pertussis, acel(Tdap) 09/08/11 Given tetanus/diphtheria/pertussis, acel(Tdap) 12/17/06 Recorded influ virus vac, H1N1, inactive(oldterm) 12 05/08/11 Given hepatitis B adult vaccine 06/14/02 Recorded 1Result Comment: PCV [address] [facility]#[id number] 2Result Comment: Flu [facility]#[id number] 3Result Comment: [id number] 4Result Comment: [id number] 5Result Comment: [id number] 6Result Comment: [id number] 7Result Comment: [07/08/2017] [id number] 8Admin Note: [facility] 9Admin Note: [facility] 9-13 10Admin Note: Given at [facility] 11Admin Note: 03-11-12 GIVEN AT [facility] 12Admin Note: rcvd elsewhere Medications Albuterol (Eqv-ProAir HFA) 90 mcg/inh inhalation aerosol See Instructions, INHALE 2 PUFFS BY MOUTH EVERY FOUR HOURS NEEDED FOR WHEEZING OR SHORTNESS OF BREATH, # 8.5 Gm, 5 Refills, Maintenance, 03/13/23 9:55:00 EDT, [facility], 30, INHALE 2 PUFFS BY MOUTH EVERY FOUR HOURS NEEDED FOR WHEEZING O... Start Date: 03/13/23 Status: Ordered cloNIDine 0.1 mg oral tablet 1, tablet, By Mouth, 2 times a day, PRN, ANXIETY (VIAL., # 56 tablet, Refills 2, Maintenance, NEEDED, 05/09/23 20:57:00 EDT, Route to Pharmacy Electronically, [facility], 160, cm, 04/02/2312:45:00 EDT, Height, 98.8, kg, 07/17/22 8:58:00 ES... Start Date: 05/09/23 Status: Ordered cyclobenzaprine 5 mg oral tablet 1 tablet, By Mouth, 3 times a day, PRN NEEDED, SPASM (VIAL., # 90 tablet, 2 Refills, Maintenance, 06/08/23 9:15:00 EST, [facility], 160, cm, 06/03/23 11:30:00 EST, Height, 98.8, kg, 07/17/22 8:58:00 EST, Dry Weight Start Date: 06/08/23 Status: Ordered docusate sodium 100 mg oral capsule 100 mg, 1, capsule, By Mouth, 2 times a day, hold for loose stool, # 180 capsule, Refills 3, Tot. Refills 3, Maintenance, 03/13/23 16:56:00 EDT, Route to Pharmacy Electronically, [facility], Partial fill upon patient request if the prescriptio... Start Date: 03/13/23 Stop Date: 04/12/23 Status: Ordered duloxetine 20 mg oral enteric coated capsule 2 capsule = 40 mg, By Mouth, Daily at bedtime, # 60 capsule, 11 Refills, Maintenance, 06/25/21 12:00:00 EST, Capsule, [facility], Partial fill upon patient request if [...] 03/02/23 18:12:00 EDT, Route to Pharmacy Electronically, [facility], Partial fill upon patient request if the prescription is for a schedule II opioid drug... Start Date: 03/02/23 Status: Ordered ipratropium nasal 21 mcg/inh spray 2 sprays = 42 mcg, Nares, Both, 2 times a day, # 30 mL, 5 Refills, Maintenance, 03/13/23 16:58:00 EDT, [place], [facility], Partial fill upon patient request if [...] 07/01/23 14:32:00 EST, Route to Pharmacy Electronically, [facility], 160, cm, 06/26/23 11:21:00 EST, Height, 112.4, kg, 06/24/23 17:38:00 EST, Dry Weight Start Date: 07/01/23 Status: Ordered metFORMIN 500 mg oral tablet 1 tablet = 500 mg, By Mouth, 2 times a day, # 60 tablet, 5 Refills, Maintenance, 07/07/23 15:26:00 EST, Tablet, [facility], Partial fill upon patient request if the prescription is for a schedule II opioid drug., 160, cm, 07/07/23 15:02:00 EST... Start Date: 07/07/23 Stop Date: 01/03/24 Status: Ordered nicotine 21 mg/24 hr transdermal film, extended release 1 patch, Topically, Daily, # 30 patch, 3 Refills, Maintenance, 06/08/23 9:15:00 EST, [facility], 30, APPLY 1 PATCH TOPICALLY DAILY, 160, cm, 06/03/23 11:30:00 EST, Height, 98.8, kg, 07/17/22 8:58:00 EST, Dry Weight Start Date: 06/08/23 Status: Ordered penicillin V potassium 250 mg oral tablet 1 tablet, By Mouth, 2 times a day, ^1R1,1R4., # 60 tablet, 5 Refills, Maintenance, 04/10/23 16:03:00 EDT, [facility], 160, cm, 04/02/23 12:45:00 EDT, Height, 98.8, kg, 07/17/22 8:58:00 EST, Dry Weight Start Date: 04/10/23 Status: Ordered rOPINIRole 0.5 mg oral tablet 1 tablet, By Mouth, 3 times a day, ^1R1,1R3,1R4., # 90 tablet, 5 Refills, Maintenance, 05/09/23 20:56:00 EDT, [facility], 160, cm, 04/02/23 12:45:00 EDT, Height, 98.8, kg, 07/17/22 8:58:00 EST, Dry Weight Start Date: 05/09/23 Status: Ordered rosuvastatin 10 mg oral tablet 1 tablet, By Mouth, Daily, ^1R1., # 30 tablet, 5 Refills, Maintenance, 07/01/23 14:33:00 EST, [facility], 160, cm, 06/26/23 11:21:00 EST, Height, 112.4, kg, 06/24/23 17:38:00 EST, Dry Weight Start Date: 07/01/23 Status: Ordered Symbicort 160mcg/4.5mcg Inhaler 2, puffs, Inhalation, 2 times a day, # 10.2 Gm, Refills 11, Tot. Refills 11, Maintenance, 06/03/23 11:47:00 EST, Aerosol, Route to Pharmacy Electronically, [id number], [facility], 160, cm, 06/03/23 11:30:00 EST, Height, 98.8, kg, ... Start Date: 06/03/23 Status: Ordered Xarelto 20 mg oral tablet 1 tablet = 20 mg, By Mouth, Daily at supper, # 90 tablet, 1 Refills, Maintenance, 03/02/23 18:12:00EDT, Tablet, [facility], pt was rx'd w diltiazem on [...] Role: Primary Care Nurse Address: Address: [address] [facility] [place] [address]- [place] Name: Marley Alejo RN Position: [facility] RN Member Role: Primary Care Nurse Name: Rashi Dewitt RN Position: S RN Member Role: Primary Care Nurse Name: Alma Delia Fonseca PharmD Position: [facility] Associate Professional Member Role: Lifetime Consulting Provider Address: Address: [address] [facility] [place] [address]- [place] Name: Yolis Matston RN Position: [facility] RN Member Role: Primary Care Nurse Name: Priscila Garzon RN Position: [facility] RN Member Role: Primary Care Nurse Name: Kyle Ahumada DO Position: [facility] Physician - Primary Care Member Role: PCP Address: Address: [address] [place] [address]- [place] Name: Renea Mart RN Position: [facility] RN Member Role: Primary Care Nurse Care Team Related Persons Name: FAUZIA JANSEN Address: home [address] [place] [address] Name: AURELIA SHETH Address: [address] [place] [address] Name: BRE OSORIO Address: home [address] [place] [address]
--- OUTSIDE RECORDS SUMMARY | 2024-01-02 21:31 | XMS_ITS | Continuity of Care Document ---
Author Organization [facility] Robin Jane Nolberto Address [address] [place] [address]- Care Team Providers Care Operations Director Name Role Phone Fuentes Garcia MD Primary Care Physician [facility]20 - 03/15/20 [facility] Robin Bolañosley Adult [address] [place] [address]- [facility] Allergies, Adverse Reactions, Alerts Substance [...] H1N1, inactive(oldterm) 7 05/08/11 Given 1Result Comment: [id number] 2Result Comment: [07/08/2017] [id number] 3Admin Note: [facility] 4Admin Note: [facility] [...] 12/06/19 9:16:00 EDT, Route to Pharmacy Electronically, [facility] #[id number], please schedule appt for further refills, 162, cm, 09/21/19 12:01:00 Laurie SPAIN... Start Date: 12/06/19 Status: Ordered Claritin 10 mg oral tablet 10 mg, 1, tablet, By Mouth, Daily, for 30 days, # 30 tablet, Refills 11, Tot. Refills 11, Acute 05/11/20 17:36:41 EDT, 05/17/19 17:36:41 EDT, Route to Pharmacy Electronically, [id number] [address] Start Date: 05/17/19 Stop Date: 05/11/20 Status: Ordered colchicine 0.6 mg oral tablet See Instructions, take 1 tablet by mouth once daily if needed for PSEUDOGOUT pain, # 30 tablet, Refills 5, Tot. Refills 5, Soft Stop, 01/05/20 8:41:00 EDT, Instructions Replace Required Details, Route to Pharmacy Electronically, [facility] #... Start Date: 01/05/20 Status: Ordered Disposable [...] Gm, 1 Refills, Maintenance, 12/20/19 16:30:00 EDT, [id number], 162, cm, 09/21/19 12:01:00 EST, Height, 116.4, [...] mL, 5 Refills, Maintenance, 10/01/18 10:08:42 EST, [place], 2 sprays Nares, Both 2 times a [...] 09/28/19 11:53:00 EST, Route to Pharmacy Electronically, [facility] #[id number], 162, cm, 09/21/2011:01:00 EST, Height, 116.4, kg, [...] 0 Refills, Maintenance, 02/27/20 16:58:00 EDT, Tablet, [facility] #[id number], 02/28/20, 165, cm, 02/03/20 14:39:00 EDT, He... [...] 11 Refills, Soft Stop, 01/19/20 11:46:00 EDT, [id number], 165, cm, 01/16/20 6:17:00 EDT, Height, 128.1, kg, 01/16/20 6:17:00 EDT, Dry Weight Start Date: 01/19/20 Status: Ordered warfarin 5 mg oral tablet 1 tablet = 5 mg, By Mouth, Daily, dosing subject to change pending inr lab values, # 30 tablet, 5 Refills, Maintenance, 02/15/20 13:21:00 EDT, Tablet, [facility] #[id number], 165, cm, 02/03/20 14:39:00 EDT, Height, 127, [...]
--- OUTSIDE RECORDS SUMMARY | 2024-01-02 21:32 | XMS_ITS | Continuity of Care Document ---
Author Organization [facility] Address [address] [place] [address]- Care Team Providers Care Studio Designer Name Role Phone Krishan GRIDER, Eulogio Molina Primary Care Physician [facility] [place]s): 11/04[place]21 - 12/04/21 [facility] [address] [place] [id number] Attending Physician: Admtr, [id number] Admitting Physician: Admtr, Ar8 Referring Physician: Admtr, Ar8 Allergies, Adverse Reactions, Alerts Substance Reaction Severity Status Adhesive Bandage Active Dust copd exac/sinus congestion A ctive Immunizations Given and Recorded Vaccine Date Status Refusal Reason SARS-CoV-2 mRNA ([id number]) vax 08/30/21 Recorded influenza virus vaccine, inactivated [...] B adult vaccine 06/14/02 Recorded 1Result Comment: [id number] 2Result Comment: [id number] 3Result Comment: [id number] 4Result Comment: [07/08/2017] [id number] 5Admin Note: [facility] 6Admin Note: [facility] [...] 8.5 Gm, 5 Refills, 05/29/21 17:13:00 EDT, [facility] #[id number], 17, INHALE 2 PUFFS BY MOUTH EVERY [...] Maintenance, 227:00:00 EDT, Route to Pharmacy Electronically, [facility], Partial fill upon patient request if the prescription is for a schedule II opioid drKatie. Start Date: 10/30/21 Status: Ordered cyclobenzaprine 10 mg oral tablet See Instructions, PRN, 1 tablet By Mouth 3 times a day as needed, # 20 tablet, Refills 0, Tot. Refills 0, Maintenance, for spasm, 11/08/21 10:23:00 EDT, Instructions Replace Required Details, Route to Pharmacy Electronically, [facility][id number]... Start Date: 11/08/21 Status: Ordered digoxin [...] 11 Refills, Maintenance, 06/25/21 12:00:00 EST, Capsule, [facility], Partial fill upon patient request if [...] 5 Refills, Maintenance, 11/18/21 13:49:00 EDT, Tablet, [facility], Partial fill upon patient request if [...] Required Details, Route to Pharmacy Electronically, [facility], 165, cm, 06/25/21 11:35:00 [...] 03/05/22 16:36:00 EDT, 12/03/21 16:35:00 EDT, Gum, [facility] #[id number], Partial fill uponpatient request if the prescription is for a schedu... Start Date: 12/03/21 Stop Date: 03/05/22 Status: Ordered NuLYTELY with Flavor Packs oral powder for reconstitution 240 mL, By Mouth, Every 10 minutes, # 1 each, 0 Refills, Maintenance, 10/25/21 10:39:00 EDT, REC Powder, [facility], Partial fill upon patient request if the prescription is for a schedule IIopioid drug., 240 mL By Mouth Every 10 minutes, 165... Start Date: 10/25/21 Status: Ordered penicillin V potassium 250 mg oral tablet 1 tablet, By Mouth, 2 times a day, CELLULITIS PROPHYLAXIS., # 60 tablet, 6 Refills, [facility], 165, cm, 11/08/21 10:02:00 EDT, Height, 127, kg, 02/03/20 14:39:00 EDT, Dry Weight Start Date: 11/15/21 Status: Ordered rOPINIRole 0.5 mg oral tablet 1 tablet, By Mouth, 3 times a day, # 90 tablet, 5 Refills, 11/08/21 9:01:00 EDT, [facility], 165, cm, 11/04/21 8:42:00 EDT, Height, 127, kg, 02/03/20 14:39:00 EDT, Dry Weight Start Date: 11/08/21 Status: Ordered rosuvastatin 10 mg oral tablet See Instructions, TAKE 1 TABLET BY MOUTH DAILY, # 90 tablet, 1 Refills, Maintenance, 10/18/21 21:30:00 EDT, [facility], 165, cm, 09/04/21 14:01:00 EST, Height, 127, kg, 02/03/20 14:39:00 EDT,Dry Weight Start Date: 10/18/21 Status: Ordered warfarin 2.5 mg oral tablet See Instructions, Dosing Subject To Change per INR Result per MD, # 30 each, 6 Refills, Maintenance, 06/12/21 17:09:00 EST, Tablet, [facility], Dosing Subject To Change per INR Result per MD,165, cm, 05/21/21 10:54:00 EDT, Height, 127, kg, 07... 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
--- OUTSIDE RECORDS SUMMARY | 2024-01-02 21:32 | XMS_ITS | Continuity of Care Document ---
Author Organization [facility] Robin Jane Nolberto Address [address] [place] [address]- Care Team Providers Care Faculty Neuropsychologist Name Role Phone Fuentes Garcia MD Primary Care Physician [facility] Date(s): 11/14/20 - 12/14/20 [facility] Robin Bolañosley Adult [address] [place] [address]- Allergies, Adverse Reactions, Alerts Substance Reaction Severity [...] H1N1, inactive(oldterm) 8 05/08/11 Given 1Result Comment: [id number] 2Result Comment: [id number] 3Result Comment: [07/08/2017] [id number] 4Admin Note: [facility] 5Admin Note: [facility] [...] 11 Refills, Maintenance, 10/31/20 14:14:00 EDT, Cream, [facility] #[id number], Partial fill upon patient request if the [...] 11/27/20 10:09:00 EDT, Route to Pharmacy Electronically, [facility] #[id number], please schedule appt for further refills, 165, cm, 11/19/20 11:32:00 EDT, Hei... Start Date: 11/27/20 Status: Ordered Claritin 10 mg oral tablet 10 mg, 1, tablet, By Mouth, Daily, for 90 days, # 90 tablet, Refills 3, Tot. Refills 3, Acute 07/28/21 15:22:00 EST, 08/02/20 15:22:00 EST, Route to Pharmacy Electronically, [facility] #[id number], 165, cm, 07/31/20 14:32:00 EST, Height, 127, [...] PMR, history of smoking fax to : [phone], 04... Start Date: 10/26/20 Status: Ordered Disposable [...] Gm, 3 Refills, Maintenance, 06/22/20 14:58:00 EST, [facility] #[id number], 165, cm, 06/07/20 13:52:00 EST, Height, 127, [...] mL, 5 Refills, Maintenance, 10/01/18 10:08:42 EST, [place], 2 sprays Nares, Both 2 times a [...] 08/02/20 16:13:00 EST, Route to Pharmacy Electronically, [facility] #[id number], D/C RX ON FILE FOR CLARITAN, 165, [...] tablet, 1 Refills, Maintenance, 07/12/20 13:56:00 EST, [facility] #[id number], Partial fill upon patient request if the prescription is for a schedule II opioid drug., 165, cm, 07/11/20 15:24:00 EST,... Start Date: 07/12/20 Stop Date: 07/05/21 Status: Ordered metoprolol 25 mg oral tablet 25 mg, 1, tablet, By Mouth, 2 times a day, # 60 tablet, Refills 5, Tot. Refills 5, Maintenance, 09/22/20 13:59:00 EST, Route to Pharmacy Electronically, [facility] #[id number], 165, cm, 07/31/2113:32:00 EST, Height, 127, kg, 02/03/20 14:39:00 ED... Start Date: 09/22/20 Status: Ordered Mitigare 0.6 mg oral capsule 1 capsule = 0.6 mg, By Mouth, Daily, # 30 capsule, 11 Refills, Maintenance, 10/31/20 14:29:00 EDT, [facility] #[id number], D/C RX ON FILE FOR COLCHICINE NOT [...] 0 Refills, Maintenance, 06/18/20 16:57:00 EST, Patch, [facility] #[id number], Partial fill upon patient request, 165, cm, 06/07/20 13:52:00 EST, Height, 127, kg, 02/03/20 14:39:00 EDT, Dry Weight Start Date: 06/18/20 Stop Date: 07/30/20 Status: Ordered NuLYTELY with Flavor Packs oral powder for reconstitution See Instructions, Drink 240mL every 15-20 minutes until first half is gone. Repeat 6 hours prior toprocedure., # 4,000 mL, 0 Refills, Maintenance, 06/28/20 17:09:00 EST, [facility] #[id number],Partial fill upon patient request if the prescript... Start Date: 06/28/20 Status: Ordered oxyCODONE 10 mg oral tablet 1 tablet = 10 mg, By Mouth, Every 8 hours, DX Z79.891 G89.29 M47.816 OK TO FILL LESS THAN PRESCRIBED AMOUNT, # 84 tablet, 0 Refills, Maintenance, 12/03/20 12:33:00 EDT, Tablet, [facility] #[id number], 12/04/20, 165, cm, 11/19/20 11:32:00 EDT, He... Start Date: 12/03/20 Stop Date: 12/31/20 Status: Ordered penicillin V potassium 250 mg oral tablet 1 tablet = 250 mg, By Mouth, 2 times a day, Cellulitis prophylaxis, # 60 tablet, 11 Refills, Maintenance, 10/30/20 12:09:00 EDT, [facility] #[id number], 165, cm, 10/19/20 8:59:00 EDT, Height, 127, kg, 02/03/20 14:39:00 EDT, Dry Weight Start Date: 10/30/20 Status: Ordered predniSONE 10 mg oral tablet 1 tablet = 10 mg, By Mouth, Daily, # 30 tablet, 5 Refills, Maintenance, 11/19/20 11:50:00 EDT, Tablet, [facility] #[id number], Partial fill upon patient request if the [...] 5 Refills, Maintenance, 04/30/20 15:13:00 EDT, Tablet, [facility] #[id number], 165, cm, 04/30/20 14:30:00 EDT, Height, 127, kg, 02/03/20 14:39:00 EDT, Dry Weight Start Date: 04/30/20 Status: Ordered rosuvastatin 10 mg oral tablet 1 tablet = 10 mg, By Mouth, Daily, # 90 tablet, 3 Refills, Maintenance, 05/03/20 16:35:00 EDT, Tablet, [facility] #[id number], d/c rx for capsules, 165, cm, 04/30/20 14:30:00 EDT, Height, 127, kg, 02/03/20 14:39:00 EDT, Dry Weight Start Date: 05/03/20 Status: Ordered Ventolin HFA 108 mcg/inh inhalation aerosol with adapter 2 puffs, Inhalation, Every 4 hours, PRN Wheezing/Shortness of Breath, # 1 each, 5 Refills, Soft Stop, 11/08/20 8:46:00 EDT, [facility] #[id number], 165, cm, 10/19/20 8:59:00 EDT, Height, 127, kg, 02/03/20 14:39:00 EDT, Dry Weight Start Date: 11/08/20 Status: Ordered warfarin 5 mg oral tablet 1 tablet = 5 mg, By Mouth, Daily, dosing subject to change pending inr lab values, # 30 tablet, 11 Refills, Maintenance, 08/31/20 15:36:00 EST, Tablet, [facility] #[id number], 165, cm, 07/31/20 14:32:00 EST, Height, 127, [...] long-term use(Confirmed) Active Gastric banding status(Confirmed) Active 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
--- OUTSIDE RECORDS SUMMARY | 2024-01-02 21:32 | XMS_ITS | Continuity of Care Document ---
Author Organization [facility] Address [address] [place] [phone]- Care Team Providers Care Inbound Sales Advisor Name Role Phone Fuentes Garcia MD Primary Care Physician [facility]counter [facility] Date(s): 02/26/21 - 03/28/[address] [id number] Attending Physician: AdmDesire andre Admitting Physician: AdmtrDesire Referring Physician: Admtr, Ar8 Allergies, Adverse Reactions, Alerts Substance Reaction Severity Status Adhesive Bandage Active Dust copd exac/sinus congestion A ctive Immunizations Given and Recorded Vaccine Date Status Refusal Reason SARS-CoV-2 (COVID-19) mRNA BNT-162b2 vac 01/02/21 Recorded SARS-CoV-2 (COVID-19) mRNA BNT-162b2 vac 12/02/20 Recorded influenza virus vaccine, inactivated 1 04/30/20 Gi octavio influenza virus vaccine, inactivated 2 05/23/19 Gi cotavio influenza virus vaccine, inactivated 04/27/18 Give n [...] B adult vaccine 06/14/02 Recorded 1Result Comment: [id number] 2Result Comment: [id number] 3Result Comment: [07/08/2017] [id number] 4Admin Note: [facility] 5Admin Note: [facility] [...] 11 Refills, Maintenance, 10/31/20 14:14:00 EDT, Cream, [facility] #[id number], Partial fill upon patient request if the [...] 02/12/21 12:56:00 EDT, Route to Pharmacy Electronically, [facility] #[id number], 165, cm, 01/11/21 14:05:00 EDT, Height, 127, [...] PMR, history of smoking fax to : [phone], 04... Start Date: 10/26/20 Status: Ordered Disposable [...] Gm, 3 Refills, Maintenance, 06/22/20 14:58:00 EST, [facility] #[id number], 165, cm, 06/07/20 13:52:00 EST, Height, 127, [...] mL, 5 Refills, Maintenance, 10/01/18 10:08:42 EST, [place], 2 sprays Nares, Both 2 times a [...] 08/02/20 16:13:00 EST, Route to Pharmacy Electronically, [facility] #[id number], D/C RX ON FILE FOR ABRAM, 165, [...] 3 Refills, Maintenance, 02/25/21 10:31:00 EDT, Tablet, [facility] #[id number], Partial fill upon patient request if the prescription is for a schedule II opioid drug., 165, cm, 01/11/21 14:... Start Date: 02/25/21 Status: Ordered methenamine hippurate 1 gm oral tablet 1 tablet = 1 Gm, By Mouth, 2 times a day, # 60 tablet, 1 Refills, Maintenance, 07/12/20 13:56:00 EST, [facility] #[id number], Partial fill upon patient request if the prescription is for a schedule II opioid drug., 165, cm, 07/11/20 15:24:00 EST,... Start Date: 07/12/20 Stop Date: 07/05/21 Status: Ordered Metoprolol Tartrate 25 mg oral tablet 1 tablet, By Mouth, 2 times a day, # 60 tablet, 2 Refills, Maintenance, 03/07/21 10:08:00 EDT, [facility] #[id number], 165, cm, 02/28/21 14:22:00 EDT, Height, 127, kg, 02/03/20 14:39:00 EDT, DryWeight Start Date: 03/07/21 Status: Ordered Mitigare 0.6 mg oral capsule 1 capsule, By Mouth, Daily, # 30 capsule, 11 Refills, Maintenance, 12/31/20 16:51:00 EDT, [facility] #[id number], 165, cm, 11/19/20 11:32:00 EDT, Height, 127, [...] 0 Refills, Maintenance, 06/18/20 16:57:00 EST, Patch, [facility] #[id number], Partial fill upon patient request, 165, cm, 06/07/20 13:52:00 EST, Height, 127, kg, 02/03/20 14:39:00 EDT, Dry Weight Start Date: 06/18/20 Stop Date: 07/30/20 Status: Ordered NuLYTELY with Flavor Packs oral powder for reconstitution See Instructions, Drink 240mL every 15-20 minutes until first half is gone. Repeat 6 hours prior toprocedure., # 4,000 mL, 0 Refills, Maintenance, 06/28/20 17:09:00 EST, [facility] #[id number],Partial fill upon patient request if the prescript... Start Date: 06/28/20 Status: Ordered oxyCODONE 5 mg oral tablet 10 mg, 2, tablet, By Mouth, Every 8 hours, DX Z79.891 G89.29 M47.816 OK TO FILL LESS THAN PRESCRIBED AMOUNT, # 168 tablet, Refills 0, Tot. Refills 0, Maintenance, 03/25/21 16:45:00 EDT, Route to Pharmacy Electronically, [facility] #[id number], D... Start Date: 03/25/21 Stop Date: 04/22/21 Status: Ordered penicillin V potassium 250 mg oral tablet 1 tablet = 250 mg, By Mouth, 2 times a day, Cellulitis prophylaxis, # 60 tablet, 11 Refills, Maintenance, 10/30/20 12:09:00 EDT, [facility] #[id number], 165, cm, 10/19/20 8:59:00 EDT, Height, 127, kg, 02/03/20 14:39:00 EDT, Dry Weight Start Date: 10/30/20 Status: Ordered predniSONE 5 mg oral tablet 1 tablet = 5 mg, By Mouth, Daily, # 30 tablet, 0 Refills, Maintenance, 01/11/21 14:20:00 EDT, Tablet, [facility] #[id number], Partial fill upon patient request if the [...] 5 Refills, Maintenance, 04/30/20 15:13:00 EDT, Tablet, [facility] #[id number], 165, cm, 04/30/20 14:30:00 EDT, Height, 127, kg, 02/03/20 14:39:00 EDT, Dry Weight Start Date: 04/30/20 Status: Ordered rosuvastatin 10 mg oral tablet 1 tablet = 10 mg, By Mouth, Daily, # 90 tablet, 3 Refills, Maintenance, 05/03/20 16:35:00 EDT, Tablet, [facility] #[id number], d/c rx for capsules, 165, cm, 04/30/20 14:30:00 EDT, Height, 127, kg, 02/03/20 14:39:00 EDT, Dry Weight Start Date: 05/03/20 Status: Ordered Ventolin HFA 108 mcg/inh inhalation aerosol with adapter 2 puffs, Inhalation, Every 4 hours, PRN Wheezing/Shortness of Breath, # 1 each, 5 Refills, Soft Stop, 11/08/20 8:46:00 EDT, [facility] #[id number], 165, cm, 10/19/20 8:59:00 EDT, Height, 127, kg, 02/03/20 14:39:00 EDT, Dry Weight Start Date: 11/08/20 Status: Ordered warfarin 2.5 mg oral tablet See Instructions, take 2.5mg sun sat subjet to change based on INR per MD, # 90 each, 3 Refills, Maintenance, 02/11/21 10:38:00 EDT, Tablet, [facility] #[id number], PLEASE GIVE THIS IN COMBINATION WITH 5MG TABLETS;, 165, cm, 01/11/21... 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
--- OUTSIDE RECORDS SUMMARY | 2024-01-02 21:32 | XMS_ITS | Continuity of Care Document ---
Author Organization [facility] Address [address] [place] [id number]- Care Team Providers Care Pole Truck Driver Name Role Phone Kyle Ahumada DO Primary Care Physician Encounter [facility] Date(s): 02/05/23 - 03/07/23 [facility] [address] [place] [id number] Allergies, Adverse Reactions, Alerts Substance [...] vaccine, inactivated 05/10/07 Jarrett rded SARS-CoV-2 mRNA ([id number]) vax 08/30/21 Recorded SARS-CoV-2 (COVID-19) mRNA BNT-162b2 vac 01/02/21 Recorded SARS-CoV-2 (COVID-19) mRNA BNT-162b2 vac 12/02/20 Recorded Fluvirin (oldterm) 8 03/22/15 Given Fluzone Preservative-Free (oldterm) 9 03/12/12 Giv en pneumococcal 23-valent vaccine 10/08/11 Given tetanus/diphtheria/pertussis, acel(Tdap) 09/08/11 Given tetanus/diphtheria/pertussis, acel(Tdap) 12/17/06 Recorded influ virus vac, H1N1, inactive(oldterm) 10 05/08/11 Given hepatitis B adult vaccine 06/14/02 Recorded 1Result Comment: [id number] 2Result Comment: [id number] 3Result Comment: [id number] 4Result Comment: [id number] 5Result Comment: [07/08/2017] [id number] 6Admin Note: [facility] 7Admin Note: [facility] [...] Gm, 4 Refills, Maintenance, 09/08/22 14:55:00 EST, [facility], 30, INHALE 2 PUFFS BY MOUTH EVERY FOUR HOURS NEEDED FOR WHEEZING... Start Date: 09/08/22 Status: Ordered amiodarone 200 mg oral tablet [...] 10/03/22 11:23:00 EST, Route to Pharmacy Electronically, [facility], 160,cm, 09/09/22 14:31:00 EST, Height, 98.8, kg, 07/17/... Start Date: 10/03/22 Status: Ordered cyclobenzaprine 5 mg oral tablet 1 tablet = 5 mg, By Mouth, 3 times a day, # 45 tablet, 1 Refills, Maintenance, 03/03/23 9:27:00 EDT, [facility], Partial fill upon patient request if the prescription is for a schedule II opioid drug., 160, cm, 03/02/23 9:56:00 EDT, He... Start Date: 03/03/23 Status: Ordered DilTIAZem (Eqv-Dilacor XR) 240 mg/24 hours oral capsule, extended release 1 capsule = 240 mg, 0 Refills, Maintenance, 03/02/23 10:15:00 EDT, Partial fill upon patient request if the prescription is for a schedule II opioid drug. Start Date: 03/02/23 Status: Ordered docusate sodium 100 mg oral capsule 100 mg, 1, capsule, By Mouth, 2 times a day, hold for loose stool, # 60 capsule, Refills 0, Tot. Refills 0, Maintenance, 01/11/22 7:25:00 EDT, Route to Pharmacy Electronically, [facility], Partial fill upon patient request if the prescri... Start Date: 01/11/22 Stop Date: 02/10/22 Status: Ordered duloxetine 20 mg oral enteric coated capsule 2 capsule = 40 mg, By Mouth, Daily at bedtime, # 60 capsule, 11 Refills, Maintenance, 06/25/21 12:00:00 EST, Capsule, [facility], Partial fill upon patient request [...] 03/02/23 18:12:00 EDT, Route to Pharmacy Electronically, [facility], Partial fill upon patient request if the prescription is for a schedule II opioid drug... Start Date: 03/02/23 Status: Ordered ipratropium nasal 21 mcg/inh spray 2 sprays = 42 mcg, Nares, Both, 2 times a day, # 30 mL, 5 Refills, Acute 03/16/23 6:08:00 EDT, 10/14/22 6:08:00 EDT, [place], [facility] #[id number], Partial fill upon patient request if the [...] 02/07/23 18:12:00 EDT, Route to Pharmacy Electronically, [facility], 160, cm, 12/16/22 10:46:00 EDT, Height, [...] 21 mg/24 hr transdermal film, extended release 0 Refills, Maintenance, 03/02/23 9:55:00 EDT, Partial fill upon patient request if the prescriptionis for a schedule II opioid drug. Start Date: 03/02/23 Status: Ordered penicillin V potassium 250 mg oral tablet 1 tablet = 250 mg, By Mouth, 2 times a day, CELLULITIS PROPHYLAXIS, # 60 tablet, 5 Refills, Maintenance, 11/06/22 17:25:00 EDT, Tablet, [facility], Partial fill upon patient request if the prescription is for a schedule II opioid drug., 160, c... Start Date: 11/06/22 Stop Date: 05/05/23 Status: Ordered rOPINIRole 0.5 mg oral tablet 1 tablet, By Mouth, 3 times a day, ^1R1,1R3,1R4., # 90 tablet, 5 Refills, Maintenance, 12/24/22 14:21:00 EDT, [facility], 160, cm, 12/16/22 10:46:00 EDT, Height, 98.8, kg, 07/17/22 8:58:00 EST, Dry Weight Start Date: 12/24/22 Status: Ordered rosuvastatin 10 mg oral tablet 1 tablet, By Mouth, Daily, ^1R1., # 30 tablet, 5 Refills, Maintenance, 02/07/23 18:12:00 EDT, [facility], 160, cm, 12/16/22 10:46:00 EDT, Height, 98.8, kg, 07/17/22 8:58:00 EST, Dry Weight Start Date: 02/07/23 Status: Ordered Symbicort 80mcg/4.5mcg Inhaler See Instructions, INHALE 2 PUFFS BY MOUTH TWICE A DAY RINSE MOUTH AND THROAT AFTER USE, # 10.2 Gm, Refills 5, Maintenance, 07/30/22 21:16:00 EST, Instructions Replace Required Details, [id number]... 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 Active [...] Name: Sandra Wills NP Position: [facility] Associate Professional Member Role: Primary Care Nurse Address: Address: [address] [place] [address] [place] [address]- [place] Name: Marley Alejo RN Position: [facility] RN Member Role: Primary Care Nurse Name: Alma Delia Fonseca PharmD Position: [facility] Associate Professional Member Role: Lifetime Consulting Provider Address: Address: [address] [place] [address] [place] [address]- [place] Name: Yolis Mattson RN Position: [facility] RN Member Role: Primary Care Nurse Name: Priscila Garzon RN Position: [facility] RN Member Role: Primary Care Nurse Name: Kyle Ahumada DO Position: [facility] Physician - Primary Care Member Role: PCP Address: Address: [address] [place] [id number]- [place] Name: Renea Mart RN Position: [facility] RN Member Role: Primary Care Nurse Care Team Related Persons Name: FAUZIA JANSEN Address: home [address] [place] [address] Name: AURELIA SHETH Address: home [address] [place] [address] Name: BRE OSORIO Address: home [address] [place] [address]
--- OUTSIDE RECORDS SUMMARY | 2024-01-02 21:32 | XMS_ITS | Continuity of Care Document ---
Author Organization [facility] ter Address [address] [place] [id number]- Care Team Providers Care Tetryl Boiling Tub Operator Name Role Phone Kyle Ahumada DO Primary Care Physician [phone] Encounter [facility] [place] Date(s): 06/24/23 - 06/26/[address] [address]- Encounter Diagnosis Typical atrial flutter(Final) - Discharge Disposition: A-D/C Home Attending Phys[facility] Admitting Physician: See Ramírez MD Referring Physician: See Ramírez MD Allergies, Adverse Reactions, Alerts Substance Reaction [...] vaccine, inactivated 05/10/07 Jarrett rded SARS-CoV-2 mRNA ([id number]) vax 08/30/21 Recorded SARS-CoV-2 (COVID-19) mRNA BNT-162b2 [...] PCV 20 [facility] [place] 2]#[id number] 2Result Comment: Flu [facility] [place]NOTE 2]#[id number] 3Result Comment: [id number] 4Result Comment: [id number] 5Result Comment: [id number] 6Result Comment: [id number] 7Result Comment: [07/08/2017] [id number] 8Admin Note: [facility] 9Admin Note: [facility] 04-08 10Admin Note: Given at [facility] 11Admin Note: 03-11-12 GIVEN AT [facility] 12Admin Note: rcvd elsewhere Medications Albuterol (Eqv-ProAir HFA) 90 mcg/inh inhalation aerosol See Instructions, INHALE 2 PUFFS BY MOUTH EVERY FOUR HOURS NEEDED FOR WHEEZING OR SHORTNESS OF BREATH, # 8.5 Gm, 5 Refills, Maintenance, 03/13/23 9:55:00 [facility], INHALE 2 PUFFS BY MOUTH EVERY FOUR HOURS NEEDED FOR WHEEZING O... Start Date: 03/13/23 Status: Ordered cloNIDine 0.1 mg oral tablet 1, tablet, By Mouth, 2 times a day, PRN, ANXIETY (VIAL., # 56 tablet, Refills 2, Maintenance, NEEDED, 05/09/23 20:57:00 EDT, Route to Pharmacy Electronically, [facility], 160, cm, 04/02/2312:45:00 EDT, Height, 98.8, kg, 07/17/22 8:58:00 ES... Start Date: 05/09/23 Status: Ordered cyclobenzaprine 10 mg oral tablet 5 mg, Tablet, By Mouth, 3 times a day, Hold for: oversedation, RR< 12, PRN for Spasm, Routine, 06/25/23 17:05:00 EST Start Date: 06/25/23 Stop Date: 06/26/23 Status: Discontinued cyclobenzaprine 5 mg oral tablet 1 tablet, By Mouth, 3 times a day, PRN NEEDED, SPASM (VIAL., # 90 tablet, 2 Refills, Maintenance, 06/08/23 9:15:00 EST, [facility], cm, 06/03/23 11:30:00 EST, Height, 98.8, kg, 07/17/22 8:58:00 EST, Dry Weight Start Date: 06/08/23 Status: Ordered docusate sodium 100 mg oral capsule 100 mg, 1, capsule, By Mouth, 2 times a day, hold for loose stool, # 180 capsule, Refills 3, Tot. Refills 3, Maintenance, 03/13/23 16:56:00 EDT, [facility], [facility] fill upon patient request if the prescriptio... Start Date: 03/13/23 Stop Date: 04/12/23 Status: Ordered duloxetine 20 mg oral enteric coated capsule 2 capsule = 40 mg, By Mouth, Daily at bedtime, # 60 capsule, 11 Refills, Maintenance, 06/25/21 12:00:00 EST, Capsule, [facility], Partial fill [...] 03/02/23 18:12:00 EDT, [facility] Partial fill upon patient request if the prescription is for a schedule II opioid drug... Start Date: 03/02/23 Status: Ordered ipratropium nasal 21 mcg/inh spray 2 sprays = 42 mcg, Nares, Both, 2 times a day, # 30 mL, 5 Refills, Maintenance, 03/13/23 16:58:00 EDT, [place], [facility], Partial fill [...] 02/07/23 18:12:00 EDT, Route to Pharmacy Electronically, [facility], 160, cm, 12/16/22 10:46:00 EDT, Height, 98.8, kg, 07/17/22 8:58:00 EST, Dry Weight Start Date: 02/07/23 Status: Ordered metFORMIN 500 mg oral tablet 1 tablet = 500 mg, By Mouth, 2 times a day, # 60 tablet, 0 Refills, Maintenance, 06/26/23 10:40:00 EST, Tablet, [facility] 3, Partial fill upon patient request if the prescription is for a schedule II opioid drug., 160, cm, 06/26/23 8:06:0... Start Date: 06/26/23 Stop Date: 07/26/23 Status: Ordered nicotine 21 mg/24 hr transdermal film, extended release 1 patch, Topically, Daily, # 30 patch, 3 Refills, Maintenance, 06/08/23 9:15:00 EST, [facility], 30, APPLY 1 PATCH TOPICALLY DAILY, 160, cm, 06/03/23 11:30:00 EST, Height, 98.8, kg, 07/17/22 8:58:00 EST, Dry Weight Start Date: 06/08/23 Status: Ordered oxyCODONE 5 mg oral tablet 5 mg, Tablet, By Mouth, Every 6 hours, PRN for Pain , Moderate, Routine, 06/24/23 23:18:00 EST Start Date: 06/24/23 Stop Date: 06/26/23 Status: Discontinued penicillin V potassium 250 mg oral tablet 1 tablet, By Mouth, 2 times a day, ^1R1,1R4., # 60 tablet, 5 Refills, Maintenance, 04/10/23 16:03:00 EDT, [facility], 160, cm, 04/02/23 12:45:00 EDT, Height, 98.8, kg, 07/17/22 8:58:00 EST, Dry Weight Start Date: 04/10/23 Status: Ordered predniSONE 20 mg oral tablet See Instructions, take by mouth daily, 2 tab x 3 days then 1 tab x 3 days, then half tab x 4 days, then stop, # 11 tablet, 0 Refills, Acute 07/06/23 9:00:00 EST, 06/26/23 10:33:00 EST, Tablet, [facility] 3, Partial fill upon patient reques... Start Date: 06/26/23 Stop Date: 07/06/23 Status: Ordered rOPINIRole 0.5 mg oral tablet 1 tablet, By Mouth, 3 times a day, ^1R1,1R3,1R4., # 90 tablet, 5 Refills, Maintenance, 05/09/23 20:56:00 EDT, [facility], 160, cm, 04/02/23 12:45:00 EDT, Height, 98.8, kg, 07/17/22 8:58:00 EST, Dry Weight Start Date: 05/09/23 Status: Ordered rosuvastatin 10 mg oral tablet 1 tablet, By Mouth, Daily, ^1R1., # 30 tablet, 5 Refills, Maintenance, 02/07/23 18:12:00 EDT, [facility], 160, cm, 12/16/22 10:46:00 EDT, Height, 98.8, kg, 07/17/22 8:58:00 EST, Dry Weight Start Date: 02/07/23 Status: Ordered Symbicort 160mcg/4.5mcg Inhaler 2, puffs, Inhalation, 2 times a day, # 10.2 Gm, Refills 11, Tot. Refills 11, Maintenance, 06/03/23 11:47:00 EST, Aerosol, Route to Pharmacy Electronically, [id number], [facility], 160, cm, 06/03/23 11:30:00 EST, Height, 98.8, kg, ... 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 FINDINGS: LINES AND TUBES: None. LUNGS AND PLEURA: Mild central vascular congestion. No pleural effusion. No pneumothorax. HEART, MEDIASTINUM AND MOISES: Mild prominence of the cardiac silhouette, unchanged. Aorta is mildly calcified. BONES AND SOFT TISSUES: No acute abnormality. IMPRESSION: Mild central vascular congestion and mild cardiomegaly. WSN: [id number] Ordering Physician: Marva Saleh Dictated By: Tika Baires MD Dictated Date/Time: 06/26/23 7:37 am Reviewed By: Tika Baires MD Signed By: Tika Baires MD Signed Date/Time: 06/26/23 7:37 am Transcribed By: MILADYS Transcribed Date/Time: 06/26/23 7:36 am Vital Signs Most recent to oldest [Reference Range]: 1 2 3 Height 160 cm (06/26/23 11:21 AM) 160 cm (06/26/23 8:06 AM) 160 cm (06/26/23 3:28 AM) Weight 112.4 kg (06/24/23 5:38 PM) 112.4 kg (06/24/23 10:45 AM) Oxygen Saturation [94-100 %] 94 % (06/26/23 11:21 AM) 96 % (06/26/23 8:06 AM) 94 % (06/26/23 3:28 AM) Pulse Rate [55-90 bpm] 67 bpm (06/26/23 11:21 AM) 65 bpm (06/26/23 8:06 AM) 58 bpm (06/26/23 3:28 AM) Body Mass Index [18.5-24.99 kg/m2] 43.91 kg/m2 *>HHI* (06/24/23 5:38 PM) 43.91 kg/m2 *>HHI* (06/24/23 10:45 AM) Blood Pressure [90-138/55-84 mm Hg] 135/98mm Hg (06/26/23 11:21 AM) 134/73mm Hg (06/26/23 8:06 AM) 108/56mm Hg (06/26/23 3:28 AM) Respiratory Rate [16-30 br/min] 18 br/min (06/26/23 11:21 AM) 20 br/min (06/26/23 10:56 AM) 20 br/min (06/26/23 10:56 AM) Temperature [96.8-100.4 DegF] 97.8 DegF (06/26/23 11:21 AM) 97.8 DegF (06/26/23 8:06 AM) 97.8 DegF (06/26/23 3:28 AM) Liters per Minute 2 L/min (06/24/23 2:30 PM) Mode of Delivery (Oxygen) Room air (06/26/23 11:21 AM) Room air (06/26/23 8:06 AM) Room air (06/26/23 3:28 AM) Blood pressure sites Arm, right (06/26/23 11:21 AM) Arm, right (06/26/23 8:06 AM) Arm, left (06/26/23 3:28 AM) Temperature Route Oral (06/26/23 11:21 AM) Oral (06/26/23 8:06 AM) Oral (06/26/23 3:28 AM) Dry Weight 112.4 kg (06/24/23 5:38 PM) Weight Obtained Via Standing scale (06/24/23 10:45 AM) Social History Social History Type Response Smoking Status Current every day [employer] [place]; Type: Cigarettes; Other: 1 pack daily; entered on: 04/19/18 Sex Female Note * Kim Antunez RN: PERFORM Event Display: Discharge/Transfer Note Hospital Authored Date: [id number] Nursing Discharge Note Entered On: 06/26/2023 11:43 EST Performed On: 06/26/2023 11:43 EST by Kim Antunez RN Nursing Discharge Note 2 Discharge Time : 06/26/2023 11:40 EST Discharge Level of Care at Discharge : Home/Prison/Foster Care Patient Left Unit Via : Wheelchair Patient Accompanied Off Unit with : Responsible adult DC Instructions Provided & Signed by Pt : Yes Patient Understands D/C Instructions : Yes Patient Instructions Discharge Signed : Yes Did Pt have Specialty Bed or Wound Vac : No Kim Antunez RN - 06/26/2023 11:43 EST * Sami GRIDER, Sri: PERFORM, MODIFY Event Display: Discharge/Transfer Note Hospital Authored Date: Patient: ??FRANKLIN HARRISON ? Age:??57 Years?Sex:??Female?:??1965?? Patient Information Discharge Location: Primary Care Physician: Kyle Ahumada DO Admit Date/Time: 06/24/23 10:19 Discharge Disposition Discharge Disposition: ?? Discharge Diagnosis ? Atrial flutter (I48.92) S/P ablation of atrial fibrillation (Z98.890) A-fib (I48.91) COPD exacerbation (J44.1) Nicotine dependence (F17.200) Type 2 diabetes mellitus (E11.9) Bipolar disorder (F31.9) Cellulitis (L03.90) Chronic back pain (M54.9) Fibromyalgia (M79.7) HLD (hyperlipidemia) (E78.5) TAMI treated with BiPAP (G47.33) PTSD (post-traumatic stress disorder) (F43.10) Restless leg syndrome (G25.81) ? _ Discharge Medications Albuterol (Albuterol (Eqv-ProAir HFA) 90 mcg/inh inhalation aerosol)?See Instructions?INHALE 2 PUFFS BY MOUTH EVERY FOUR HOURS NEEDED FOR WHEEZING OR SHORTNESS OF BREATH Budesonide-Formoterol (Symbicort 160mcg/4.5mcg Inhaler)?2?puff(s)?Inhalation?2 times a day Clonidine (cloNIDine 0.1 mg oral tablet)?1?tablet?By Mouth?2 times a day?as needed?ANXIETY (VIAL.? NEEDED Cyclobenzaprine (cyclobenzaprine 5 mg oral tablet)?1?tab(s)?By Mouth?3 times a day?as needed? NEEDED?SPASM (VIAL. Docusate (docusate sodium 100 mg oral capsule)?100?Milligram?1?capsule?By Mouth?2times a day?hold for loose stool Duloxetine (duloxetine 60 mg oral enteric coated capsule)?1?capsule?60?Milligram?By Mouth?Daily in AM Duloxetine (duloxetine 20 mg oral enteric coated capsule)?2?capsule?40?Milligram?By Mouth?Daily at bedtime Furosemide (furosemide 40 mg oral tablet)?40?Milligram?1?tablet?By Mouth?Daily Ipratropium Nasal (ipratropium nasal 21 mcg/inh spray)?2?spray(s)?42?Microgram?Nares, Both?2 times a day Lamotrigine (lamotrigine 200 mg oral tablet)?1?tab(s)?200?Milligram?By Mouth?Daily at bedtime Lamotrigine (lamotrigine 25 mg oral tablet)?50?Milligram?2?tablet?By Mouth?Daily at bedtime Loratadine (loratadine 10 mg oral tablet)?1?tablet?By Mouth?Daily?R1. Nicotine (nicotine 21 mg/24 hr transdermal film, extended release)?1?patch(es)?Topically?Daily penicillin V potassium (penicillin V potassium 250 mg oral tablet)?1?tab(s)?By Mouth?2 times a day?^1R1,1R4. PredniSONE (predniSONE 20 mg oral tablet)?See Instructions?take by mouth daily, 2 tab x 3 days then 1 tab x 3 days, then half tab x 4 days, then stop rivaroxaban (Xarelto 20 mg oral tablet)?1?tab(s)?20?Milligram?By Mouth?Daily at supper Ropinirole (rOPINIRole 0.5 mg oral tablet)?1?tab(s)?By Mouth?3 times a day?^1R1,1R3,1R4. Rosuvastatin (rosuvastatin 10 mg oral tablet)?1?tab(s)?By Mouth?Daily?^1R1. ? Medications Started for next??Prednisone taper???prednisone 40 mg??p.o. daily for next 3 days, then??prednisone??20 mg??x 3 days,??then??prednisone 10 mg for??4 days, then stop Medications Discontinued Toprol-XL, amiodarone,??diltiazem Doses Changed None Future Appointments Thursday 2:50 PM EST ?? With: Brandyn HUNT, Kyle Coe Where: [facility] [address] [place] [address]- Status: Pending Hospital Course 57-year-old lady with past medical history of A-fib/a flutter, active cigarette smoker used to smoke 2 pack/day, now down to 1 pack/day over a year, history of COPD not on any home oxygen, TAMI on BiPAP at 1 L at night/naps, type 2 diabetes not on any home medication, fibromyalgia, bipolar disorder,chronic back pain, degenerative joint disease of lumbar spine, PTSD, restless leg syndrome, history of pseudoseizure was transferred from cardiology service for observation for COPD exacerbation withshortness of breath. ?? COPD exacerbation (J44.1):??not on home o2 hypoxia post ablation and SOB diffuse wheezing on exam R > L still active smokerk ?? Plan obtain CXR Breo instead of Symbicort as not formulary DuoNeb q4hr prn Prednisone 40mg daily x 5 days Incentive spirometry counselled to quit smoking completely cont BiPAP w/ 1 L NC at night and nap time closely monitor resp status target o2 88-92% ? A-fib (I48.91):??/ S/P ablation of atrial fibrillation (Z98.890):??d ?? one 06/24 ; has h/o x2 ablation in the past cont tele monitor per cardiology : Metoprolol was held, later DC'd, also??recommended to DC amiodarone and diltiazem cont Xarelto Continue furosemide 40 mg daily Outpatient follow-up with cardiology on discharge ? Nicotine dependence (F17.200):??declined NRT ; counselled to quit completely used to smoke 2 PPD , now down to 1 PPD for over a year Smoking cessation??counseled??extensively,??patient??verbalized understanding, she will work to [employer] from her 1 pack/day also Will follow-up with Dr. Fields for her??COPD ?? TAMI treated with BiPAP (G47.33):??cont BiPAP at night and nap w/ 1 L NC ?? h/o Cellulitis (L03.90):??h/o recurrent BLE cellulitis cont home med Pen V 250mg BID ? History of recurrent UTI (urinary tract infection) (Z87.440):??reported taking Nitrofurantoin chronically but no recent prescription on ext med review. i called [facility] : last prescribed 28 days supply on 02/24/[address] Lee will hold for now ?? Type 2 diabetes mellitus (E11.9):??not on any home med ?? Hemoglobin A1c???7.8 Patient used to be on metformin and Trulicity before,??has never been on insulin Have started??metformin 500 mg??twice daily to be continued on discharge, her blood glucose will beuncontrolled while on steroid taper She has been recommended to closely follow-up with her??primary provider to resume her diabetic regimen??as before And to closely monitor her hemoglobin A1c,??educated her regarding complications??and??that she will need to??be on insulin??on discharge Have??encouraged her to keep a blood sugar log (she has supplies at home???glucometer, lancets, strips),??and follow-up with her primary care provider, she verbalizes understanding Sliding scale insulin was used in house, her glucose ranged from 200s to??low 300s ?? HLD (hyperlipidemia) (E78.5):??Continue rosuvastatin 10 mg daily ?? PTSD (post-traumatic stress disorder) (F43.10):??/ Restless leg syndrome (G25.81):??/ Bipolar disorder (F31.9):??Continue home medication duloxetine 60 mg in the morning, 40 mg bedtime Continue lamotrigine 250 mg daily at bedtime Continue ropinirole 0.5 mg 3 times daily ?? Chronic back pain (M54.9):? Tylenol, cyclobenzaprine, oxycodone as needed for pain ?? Code Status:??full code ; confirmed but she does not want to be in a vegetative state ?Order Code Status:??Code Status Ordered ?? VTE Prophylaxis:??xarelto ? Dispo:Home with outpatient follow up with primary care provider . Objective Assessment and Plan ? Vital Signs?? Temperature: 97.8 DegF (06/26/23 08:06:00) Temperature Route: Oral (06/26/23 08:06:00) Pulse Rate: 65 bpm (06/26/23 08:06:00) Respiratory Rate: 18 br/min (06/26/23 08:06:00) Systolic Blood Pressure: 134 mm Hg (06/26/23 08:06:00) Diastolic Blood Pressure: 73 mm Hg (06/26/23 08:06:00) Blood pressure sites: Arm, right (06/26/23 08:06:00) Mean Arterial Pressure: 93 mm Hg (06/26/23 08:06:00) Pulse Pressure: 61 mm Hg (06/26/23 08:06:00) Oxygen Saturation: 96 % (06/26/23 08:06:00) Mode of Delivery (Oxygen): Room air (06/26/23 08:06:00) Early Warning Score: 3 (06/26/23 08:08:14) ? . Physical Exam General: Alert,??oriented x3, in no acute distress, fully communicative, speaking in??full sentences HEENT Normocephalic. Pupils are equal, round and reactive to light. Extraocular muscles intact. Oropharynx clear, oral mucosa??moist Neck: Supple, Full range of motion. Trachea midline. No JVD or bruits. Respiratory: CTA BL, no rhonchi/wheezes Cardiovascular: S1-2 regular, no MRG Gastrointestinal: Abdomen soft, non-tender, non-distended. Normal bowel sounds. ??No guarding, rigidity, rebound, no hepatosplenomegaly Extremities: No edema, cyanosis or clubbing.?? Extremities warm Neurologic: AAOx3, Cranial nerves II-XII grossly intact. Speech normal. ??Motor 5/5,??sensory exam intact, deep tendon reflexes +2 bilaterally. Flexor plantar response, Moves all extremities spontaneously. Skin: No rashes or lesions. No petechiae or purpura.? Pending Results Add On Lab Order ordered on 06/25/2023 Add On Lab Order ordered on 06/26/2023 Follow-Up Appointments Added Follow Up ?Time Frame ?Comments Brandyn HUNT, Kyle Coe?1 week Post Discharge Care Diet: ??Diabetic Diet ?? Activity: ??Ambulation ad janet., as tolerated ?? Code Status: ??Full Resuscitation ?? Condition: ??good ?? Discharge ?06/26/23 10:40:00 EST Discharge Prescriptions ?ePrescribed, 06/26/23 10:40:00 EST Home Health Face to Face ^HomeHealthFTF Results Discharge Labs BLOOD BANK Blood Type A Positive ()?? 06/24/2023 10:46 Antibody Screen Negative ()?? 06/24/2023 10:46 ?? BLOOD COUNT & DIFF WBC 7.6 k/mm3 ()?? 06/25/2023 01:37 RBC 4.26 m/mm3 ()?? 06/25/2023 01:37 Hgb 11.9 Gm/dL ()?? 06/25/2023 01:37 Hct 38.0 % ()?? 06/25/2023 01:37 MCV 89.2 femtoliters ()?? 06/25/2023 01:37 MCH 27.9 pg ()?? 06/25/2023 01:37 MCHC 31.3 g/dL (Low)?? 06/25/2023 01:37 Platelet Count 229 k/mm3 ()?? 06/25/2023 01:37 RDW-SD 51.3 femtoliters (High)?? 06/25/2023 01:37 MPV 10.4 femtoliters ()?? 06/25/2023 01:37 Nucleated RBC (Automated) 0.0 #/100 WBC'S ()?? 06/25/2023 01:37 Abs. NRBC 0.0 k/mm3 ()?? 06/25/2023 01:37 ?? CARDIAC Nt-Probnp 564 pg/mL (High)?? 06/26/2023 01:08 ? CHEM GENERAL Sodium 134 mmol/L ()?? 06/26/2023 01:08 Potassium 5.0 mmol/L ()?? 06/26/2023 01:08 Chloride 98 mmol/L ()?? 06/26/2023 01:08 Bicarbonate Level 27 mmol/L ()?? 06/26/2023 01:08 Anion Gap 9 ()?? 06/26/2023 01:08 Glucose Level 227 mg/dL (High)?? 06/25/2023 09:24 Glucose, POC 286 mg/dL (High)?? 06/26/2023 08:06 Hemoglobin A1C (Monitoring) 7.8 % (High)?? 06/25/2023 01:37 BUN 19 mg/dL ()?? 06/25/2023 09:24 Creatinine-Blood 0.9 mg/dL ()?? 06/25/2023 09:24 Estimated GFR Creatinine 75 ML/MIN/1.73 M2 ()?? 06/25/2023 09:24 Calcium 9.4 mg/dL ()?? 06/25/2023 09:24 ?? COAG INR 1.3 (High)?? 06/24/2023 11:23 Protime (PT) 13.0 seconds (High)?? 06/24/2023 11:23 ?? HEME OTHER Hold Lavender Top SPECIMEN DISCARDED AFTER 24 HOURS. ()?? 06/26/2023 01:08 ? URINE OTHER Est Creatinine Clearance 55.66 mL/min ()?? 06/25/2023 10:51 ? VIROLOGY Influenza A PCR NEGATIVE ()?? 06/25/2023 13:55 Influenza B PCR NEGATIVE ()?? 06/25/2023 13:55 RSV PCR NEGATIVE ()?? 06/25/2023 13:55 COVID-19 PCR Specimen Source NASAL ()?? 06/25/2023 13:55 COVID-19 PCR Result NEGATIVE ()?? 06/25/2023 13:55 ? _45 minutes spent on discharge * Kim Antunez RN: PERFORM Event Display: Patient Education/Instruction Authored Date: Inpatient Adult Discharge Instructions [address] [id number] Name: FRANKLIN HARRISON : 1965 Visit: 06/24/2023 10:19:00 Current Date: 06/26/2023 11:20 Account: [id number] Inpatient Adult Discharge Instructions We would like [...] and their families. Surveys are administered by [employer] ?? If further treatment with your primary care physician or another doctor is recommended, it is important for you to keep the appointment. Call your primary care physician or return to the Emergency Department immediately if your condition worsens, fails to improve, or new symptoms develop. If you need to find a doctor, you can call [facility] for a referral at [phone] or toll free at [phone] ([phone]) or log in to [email or web address].. ?? [facility], in keeping with [facility] guidance, no longer requires face masks for staff, patientsor visitors in most situations. Similiar to time spent indoors at other locations, there is the chance that you were exposed to repiratory viruses during your time with us (such as flu or COVID-19). If you develop symptoms concerning for a viral respiratory infection, please seek testing (and treatment if indicated) from your medical provider or home test kit. ?? You can view and manage your care through the patient portal or by using a health care stone of your choosing. [employer] is a website that allows you to securely view your medical information including your hospital discharge summary, office visit summaries, medications and follow-up visits. You can also request appointments, renew medications, and request access to your medical information using a health care stone of your choosing, or just ask a question. You can enroll at [email or web address] or register during your next office visit. You have been discharged from [facility], Patient Care Unit: S3. If you have any questions regarding these instructions after you leave, please call us and we will be happy to assist you. [facility] Your Care Team Attending Physician Sami GRIDER, Sri Consulting Providers Jennie Chapman MD, MD, Sparkle Da Silva Discharging Providers Sami GRIDER, Sri Reason for Admission AFLUTTER ABLATION FLUTTERHV2 7AM ARR Tests Performed Below is a partial list of the tests performed during your hospitalization. You may have had other tests and procedures not included in this list. Please discuss all test results with your provider. Basic Metabolic Panel CBC COVID-19, RSV, and Flu A/B, Rapid PCR Electrolytes GLUCOSE POC HEMOGLOBIN A1C HOLD LAVENDER TUBE PROBNP PT (INR) Type and Screen CXR W/ Frontal and Lat Primary Care Provider Kyle Ahumada DO [employer] Direct[employer] Health Care Proxy on File Yes - Health Care Proxy Discharge Vitals Temperature: 97.8 DegF Height: 160 cm Pulse Rate: 65 bpm Weight: 112.4 kg Respiratory Rate: 20 br/min Body Mass Index:??43.91 kg/m2??Critical Respiratory Rate: 20 br/min Body surface area: 2.24 Systolic Blood Pressure: 134 mm Hg ?? Diastolic Blood Pressure: 73 mm Hg ?? Oxygen Saturation: 96 % ?? Studies Pending All tests and labs ordered during this hospital stay have been completed unless listed below. Please discuss all pending results with your provider listed above in these instructions. ?? Add On Lab Order What to do next Instructions From Your Doctor Discharge Orders Diet:??Diabetic Diet Activity:??Ambulation ad janet., as tolerated Code Status:?? Full Resuscitation Condition:??good Scheduled Follow-Up Appointments Thursday 2:50 PM EST ?? With: Kyle Ahumada DO Where: [place] [address]- Status: Pending You Need to Schedule the Following Appointments Follow Up with??Kyle Ahumada DO When:??Within 1 week Where: ?? Discharge Medications FRANKLIN HARRISON :1965 Visit Date:06/24/2023 Medications: Please continue your medications until treatment is completed or stopped by your provider. Medications not listed below should be discontinued. Discuss any questions related to medications with your provider. What How Much When Instructions Next Dose New Metformin (metFORMIN 500 mg oral tablet) 1 tab(s) Oral Twice a day Duration: 30 Days Pickup at [facility] 3 12/ PM New PredniSONE (predniSONE 20 mg oral tablet) See instructions take by mouth daily, 2 tab x 3 days then 1 tab x 3 days, then half tab x 4 days, then stop ?? Pickup at [place] [id number] 12 AM Unchanged Albuterol (Albuterol (Eqv-ProAir HFA) 90 mcg/ inh inhalation aerosol) See instructions INHALE 2 PUFFS BY MOUTH EVERY FOUR HOURS NEEDED FOR WHEEZING OR SHORTNESS OF BREATH ?? as needed Unchanged Budesonide-Formoterol (Symbicort 160mcg/ 4.5mcg Inhaler) 2 puff(s) Inhalation Twice a day 06/26 PM Unchanged Clonidine (cloNIDine 0.1 mg oral tablet) 1 tab(s) Oral Twice a day as needed for NEEDED ANXIETY (VIAL. ?? as needed Unchanged Cyclobenzaprine (cyclobenzaprine 5 mg oral tablet) 1 tab(s) Oral 3 times a day as needed for NEEDED SPASM (VIAL. ?? as needed Unchanged Docusate (docusate sodium 100 mg oral capsule) 1 capsule Oral Twice a day hold for loose stool ?? 06/26 PM Unchanged Duloxetine (duloxetine 20 mg oral enteric coated capsule) 2 capsule Oral Daily at Bedtime 06/26 Bedtime Unchanged Duloxetine (duloxetine 60 mg oral enteric coated capsule) 1 capsule Oral Daily in the morning 06/27 AM Unchanged Furosemide (furosemide 40 mg oral tablet) 1 tab(s) Oral Daily 06/27 AM Unchanged Ipratropium Nasal (ipratropium nasal 21 mcg/ inh spray) 2 spray(s) Nares, Both Twice a day 06/26 PM Unchanged Lamotrigine (lamotrigine 200 mg oral tablet) 1 tab(s) Oral Daily at Bedtime 12 Bedtime Unchanged Lamotrigine (lamotrigine 25 mg oral tablet) 2 tab(s) Oral Daily at Bedtime 06/26 Bedtime Unchanged Loratadine (loratadine 10 mg oral tablet) 1 tab(s) Oral Daily R1. ?? 12 AM Unchanged Nicotine (nicotine 21 mg/ 24 hr transdermal film, extended release) 1 patch(es) Topically Daily 06/27 AM Unchanged penicillin V potassium (penicillin V potassium 250 mg oral tablet) 1 tab(s) Oral Twice a day ^1R1,1R4. ?? 12 PM Unchanged rivaroxaban (Xarelto 20 mg oral tablet) 1 tab(s) Oral Daily at supper 06/26 Supper Unchanged Ropinirole (rOPINIRole 0.5 mg oral tablet) 1 tab(s) Oral 3 times a day ^1R1,1R3,1R4. ?? 06/26 2pm Unchanged Rosuvastatin (rosuvastatin 10 mg oral tablet) 1 tab(s) Oral Daily ^1R1. ?? 12/2 AM [facility] [address], [place] [id number] [phone] ?? What How Much When Comments Stop Taking amiODARONE (amiodarone 200 mg oral tablet) Stop Taking Diltiazem (DilTIAZem (Eqv-Dilacor XR) 240 mg/ 24 hours oral capsule, extended release) 1 capsule Oral Daily Stop Taking Metoprolol (metoprolol 50 mg oral tablet, extended release) 1 tab(s) Oral Daily Test Results Below is a partial list of the most recent Laboratory test results done prior to this discharge. You may have had other tests and procedures not included in this list. Please discuss all test resultswith your provider. Est Creatinine Clearance - 55.66 mL/min (06/25/2023) Basic Metabolic Panel (06/25/2023) ???Sodium - 137 mmol/L???Potassium - 5.0 mmol/L???Chloride - 98 mmol/L???Bicarbonate Level - 29 mmol/L???Anion Gap - 10???Glucose Level - 227 mg/dL???BUN - 19 mg/dL???Creatinine-Blood - 0.9 mg/dL???Estimated GFR Creatinine - 75 ML/MIN/1.73 M2???Calcium - 9.4 mg/dL CBC (06/25/2023) ???WBC - 7.6 k/mm3???RBC - 4.26 m/mm3???Hgb - 11.9 Gm/dL???Hct - 38.0 %???MCV - 89.2 femtoliters???MCH - 27.9 pg???MCHC - 31.3 g/dL???Platelet Count - 229 k/mm3???RDW-SD - 51.3 femtoliters???MPV - 10.4 femtoliters???Nucleated RBC (Automated) - 0.0 #/100 WBC'S???Abs. NRBC - 0.0 k/mm3 COVID-19, RSV, and Flu A/B, Rapid PCR (06/25/2023) ???Influenza A PCR - NEGATIVE???Influenza B PCR - NEGATIVE???RSV PCR - NEGATIVE???COVID-19 PCR Specimen Source - NASAL???COVID-19 PCR Result - NEGATIVE Electrolytes (06/26/2023) ???Sodium - 134 mmol/L???Potassium - 5.0 mmol/L???Chloride - 98 mmol/L???Bicarbonate Level - 27 mmol/L???Anion Gap - 9 GLUCOSE POC (06/26/2023) ???Glucose, POC - 286 mg/dL HEMOGLOBIN A1C (06/25/2023) ???Hemoglobin A1C (Monitoring) - 7.8 % HOLD LAVENDER TUBE (06/26/2023) ???Hold Lavender Top - SPECIMEN DISCARDED AFTER 24 HOURS. PROBNP (06/26/2023) ???Nt-Probnp - 564 pg/mL PT (INR) (06/24/2023) ???INR - 1.3???Protime (PT) - 13.0 seconds Type and Screen (06/24/2023) ???Blood Type - A Positive???Antibody Screen - Negative Allergies (NKA means No Known Allergies) Adhesive Bandage Dust??(copd exac/sinus congestion) Problems Active Problems??(40) Acute exacerbation of COPD with asthma?? Anticoagulant long-term use?? Arthritis of knee - bilateral?? Bipolar disorder NOS?? Cervical radiculopathy - left?? Chronic back pain?? Chronic deep vein thrombosis (DVT)?? Chronic obstructive pulmonary disease (COPD)?? Chronic pain syndrome?? Cigarette smoker?? Congestive heart failure?? DJD (degenerative joint disease), lumbar?? Encounter for screening colonoscopy?? Essential tremor?? Fatigue?? Fibromyalgia?? Gastric banding status?? Hyperparathyroidism?? retirement current use of opiate analgesic?? Lymphedema?? Nausea?? Overactive bladder?? Paroxysmal atrial flutter?? Persistent moderate somatic symptom disorder with predominant pain?? Prophylactic antibiotic - daily Pen VK for lymphedema , prevention of cellulitis?? Pruritic rash?? Pseudogout of knees?? Pseudoseizures?? PTSD - Post-traumatic stress disorder?? Recurrent bacterial cystitis?? Restless leg syndrome?? Sciatica?? Scoliosis?? Severe obesity?? Severe obstructive sleep apnea-hypopnea syndrome?? Spinal stenosis, lumbar?? Stasis dermatitis?? Straining with stools?? Type 2 diabetes mellitus with hyperglycemia?? UI (urinary incontinence)?? Education Materials Below is the list of Educational Leaflet Providered with your Discharge Instructions. Valuables and Belongings I fully understand and agree that [facility] accepts no responsibility for all my personal [...] patient Date for Pt to Sign Valuables/Belongings: 06/24/23 17:42:00 ?? Other Discharge Information ? Case Management Discharge Plan?? Discharge Plan?? Discharge Rx Program: Discharge Prescription Program ?? Pulmonary Rehab Status?? Pulmonary Rehab Discharge Status?? Respiratory Rate: 20 br/min Respiratory Rate: 20 br/min ? Common Emergency Awareness Tips IS [...] strongly encouraged to quit. Please call [facility] at [phone] or [phone] ([phone]) or log in to [email or web address] for referrals to smoking cessation programs. ?? 920 Suicide & Crisis Lifeline is available 16/02 if you or someone you know needs to find a reason to keep living. By calling 249 you'll be connected to a skilled, trained counselor at a crisis center in your area. INPATIENT DISCHARGE INSTRUCTIONS SIGNATURE PAGE FRANKLIN HARRISON Location:[facility] Registration Date and Time:06/24/2023 10:19 EST Primary Care Physician: Kyle Ahumada DO, Attending Physician: Sami GRIDER, [facility], I FRANKLIN HARRISON, have received the above patient education materials/instructions and have verbalized understanding. If ambulance or transport services are being used I further acknowledge being given a choice of service. ?? If you need to contact me, please call me at this number: . Patient/Social Science Professor Name: Patient/Social Science Professor Signature: Relationship to Patient: Witness Name/Signature: Date: * Kim Antunez RN: PERFORM Event Display: Patient Education Leaflets Authored Date: Having Catheter Ablation ?? [id number] Having Catheter Ablation A heart rhythm problem (arrhythmia) can make your heart beat too fast or in an irregular pattern. The problem is often caused by cells in your heart that aren???t working as they should. Or it may bedue to an abnormal electric circuit. It may cause bothersome symptoms, such as an irregular heartbeat (palpitations), dizziness, shortness of breath, chest pain, or fainting. Your healthcare providerhas advised catheter ablation to treat your arrhythmia. This nonsurgical procedure destroys the cells that are causing the problem. Before the procedure Before your catheter ablation, you'll meet with a specially trained heart doctor (cardiac gas mask inspector) who will do the procedure. They'll tell you how to get ready. You'll likely be told to stop or change??your heart rhythm medicines for a period of time before the procedure. Follow your doctor???s instructions. Also: ??? Tell the doctor about all prescription and [id number] medicines you take. This includes herbs, supplements, and vitamins. It also includes daily medicines, such as insulin or blood thinners. If you're allergic to any medicines, tell the doctor. ??? Have any routine tests, such as blood tests, as advised. ??? Follow any directions you're given for not eating or drinking before your procedure.. ?? How catheter ablation is done Catheter ablation uses thin, flexible wires (electrode catheters) to find and destroy (ablate) problem cells. Here???s how the procedure is done: ??? The heart???s signals are mapped.??To find the problem, an electrophysiology study (EPS) is done. During this study, the doctor tries to start (induce) your arrhythmia. This is picked up by a diagnostic (mapping) catheter . An electrical map of the heart is then created. This shows the type of arrhythmia you have and where the problem is. Using the map as a guide, the doctor knows where to ablate. ??? Problem areas are destroyed using heat or cold therapy.??Once the EPS shows where the problem is, the doctor threads an electrode catheter??throu gh a blood vessel to that area in the heart. Energy is sent through the catheter to destroy the problem cells. ??? The heart???s rhythm is tested again.??After ablating the problem cells, the doctor tries to restart (reinduce) your arrhythmia. If a fast rhythm can???t be induced, the ablation is a success. But if a fast rhythm does start again, you may need more ablation. ?? Your experience during catheter ablation In most cases, catheter ablation is done in an electrophysiology (EP) lab. It often takes??2 to 4??hours, and sometimes longer. You???ll receive medicine to prevent pain. Medicine will also help you relax or sleep during the procedure. If you feel uncomfortable during the procedure, tell the doctoror nurse. In some cases, you may have general anesthesia. ??? First, the healthcare team washes theskin on your groin (or rarely, the neck). Any hair in that area may be removed. This is where the catheters will be inserted. An IV (intravenous) line is started in your arm. Medicines and fluids aregiven through this IV. To help keep the insertion site germ-free (sterile), your body is draped with sheets. Only the area where the catheters will be inserted is exposed. ??? The healthcare providernumbs the skin where the catheters will be inserted??with pain medicine (local anesthetic).??Then the provider uses a small needle to make holes (punctures) in your vein or artery. They put catheters??through these punctures and guide them??to your heart. The provider uses??X-ray monitors to help guide the catheters. ??? The provider then puts wires??in several places in the heart to map the electrical signals. The??wires also stimulate the heart. ??? When the procedure is done, the provider takes the catheters??out of your body. They put pressure??on the puncture sites to stop any bleeding. Sometimes the provider uses a vascular access closure device to stop the bleeding. You???re then taken to a recovery room to rest. You'll need to remain lying down for??2 to 6??hours.??You'll also??beasked not to move the leg where the catheters were inserted for a few hours.??This is to make sure the insertion sites don't bleed. For many procedures, you may be able to go home on the same day as the procedure. ?Risks and possible complications The risks of catheter ablation are fairly low compared to the benefits you receive. Discuss these risks with your doctor before the procedure. Possible risks and complications include: ??? Bleeding or bruising at the catheter insertion site ??? Blood clots ??? A slow heart rhythm (requiring a permanent pacemaker) ??? Perforation of the heart muscle, blood vessel, or lung (may require an emergencyprocedure) ??? Damage to a heart valve (rare) ??? Stroke or heart attack, also known as acute myocardial infarction, or AMI (rare) ??? Infection, which is a risk after any invasive procedure. This may be indicated by a fever of 100.4??F (38.0??C) or higher, fluid leaking, or redness and pain at thecatheter insertion site. ??? (extremely rare) ?? Last Reviewed Date: 2021 ?? [id number] [employer] All rights reserved. This information is not intended as a substitute for professional medical care. Always follow your healthcare professional's instructions. ?? * Event Display: Hemodynamic Procedure Report Authored Date: History and physical note * Event Display: History and Physical Hospital Authored Date: Admission evaluation note * Delfino GRIDER, Marva Moser: PERFORM Event Display: Admission Note Authored Date: Patient: ??FRANKLIN HARRISON ? Age:??57 Years?Sex:??Female?:??1965?? History of Present Illness This is a 57-year-old lady with past medical history of A-fib/a flutter, active cigarette smoker used to smoke 2 pack/day, now down to 1 pack/day over a year, history of COPD not on any home oxygen, TAMI on BiPAP at 1 L at night/naps, type 2 diabetes not on any home medication, fibromyalgia, bipolardisorder, chronic back pain, degenerative??joint disease of lumbar spine, PTSD, restless leg syndrome, history of pseudoseizure??was transferred from cardiology service for observation for COPD exacerbation with shortness of breath. ?? Seen and examined at bedside at??[facility]; vitals labs and chart reviewed Patient??reported feeling??some wheezing??starting about a week ago,??improved but then??noticed more wheezing today. She is status post??ablation for A-fib/a flutter??on 06/24. ?? During my evaluation, she??was AOx3, maintaining saturation room air,??bilateral diffuse expiratorywheezing more on the right side,??able to engage in a conversation without feeling more short of breath.?We will obtain chest x- ray,??order breathing treatment,??start p.o. prednisone 40 mg daily for 5 days, encourage incentive spirometry. Of??note,??she is also still actively smoking, she used to smoke 2 pack a day, now cut down to 1 pack/day for over a year.?? She declined nicotine replacement therapy. ??I have extensively counseled her to stop??smoking completely. She denies any other??recreational drug use or alcohol use. ?? Admitted for shortness of breath, COPD exacerbation Review of Systems GEN: ??Denies any issues with sleep, fatigue or changes in wt. HEENT: Denies runny nose, dry mouth, ??sore throat or changes to his vision. CV: Denies CP, palpitations, edema or orthopnea. PULM:??Positive for shortness of breath, wheezing ABD: Denies any abdominal pain, N/V/D, heartburn. ??Denies any changes to bowel habits or stool character.?? : Denies dysuria, polyuria, or hematuria. EXT: Denies any joint pain, stiffness, numbness or tingling.?? PSYCH: Denies any depression or anxiety. Objective Measurements?? Height: 160 cm (06/25/23) Weight: 112.4 kg (06/24/23) Dry Weight: 112.4 kg (06/24/23) Body Mass Index:??43.91 kg/m2??Critical (06/24/23) ? Vital Signs?? Temperature: 98.3 DegF (06/25/23 16:54:00) Temperature Route: Oral (06/25/23 16:54:00) Pulse Rate: 62 bpm (06/25/23 16:54:00) Respiratory Rate: 18 br/min (06/25/23 16:54:00) Systolic Blood Pressure: 107 mm Hg (06/25/23 16:54:00) Diastolic Blood Pressure: 72 mm Hg (06/25/23 16:54:00) Blood pressure sites: Arm, left (06/25/23 16:54:00) Mean Arterial Pressure: 84 mm Hg (06/25/23 16:54:00) Pulse Pressure: 35 mm Hg (06/25/23 16:54:00) Oxygen Saturation: 96 % (06/25/23 16:54:00) Mode of Delivery (Oxygen): Room air (06/25/23 16:54:00) Early Warning Score: 0 (06/25/23 16:54:37) ? Perfusion Assessment Capillary Refill: < 3 seconds (06/24/23 17:40:00) Cardiac Rhythm: Normal sinus rhythm, Sinus bradycardia (06/25/23 09:00:00) Cardiovascular: WNL except (06/25/23 09:00:00) Cardiovascular Assessment Status: Unchanged from recorder's assessment (06/25/23 03:00:00) Cardiovascular Symptoms: None (06/24/23 21:00:00) Heart Rhythm: Regular (06/24/23 17:40:00) Nail Bed Color, Fingers: [place] (06/24/23 17:40:00) Nail Bed Color, Toes: [place] (06/24/23 17:40:00) Pacemaker: No (06/24/23 17:40:00) Skin Temperature Lower Extremities: Warm (06/24/23 17:40:00) Skin Temperature Upper Extremities: Warm (06/24/23 17:40:00) ? Pain Scores 1 - 10 Pain Scale Score: 6 (21:00) ? Ventilator Settings?? No qualifying data available. ? Intake/Output? No Data Available ?? Precautions No Precautions documented.? Mobility & Ambulation Level Mobility & Ambulation Level?? No qualifying data available. ?? Therapeutic Activity Therapeutic Activities/Mobility/Balance?? No qualifying data available. ? Physical Exam General??: Awake, alert,??in no acute distress, room air HEENT: PERRL, NC/AT Neck: Supple. No JVD. No palpable LAD Respiratory: Bilateral air entry??with??diffuse expiratory wheezing more on the right side Cardiovascular: S1S2 regular. No murmurs, rubs or gallops. Gastrointestinal: Abdomen soft, non-tender, non-distended. No palpable organomegaly, bowel sounds present Genitourinary: No CVA tenderness Extremities: Trace lower extremity pitting??edema??with chronic hyperpigmentation skin changes up to The level of, no cyanosis or clubbing. Neurologic: AAOx3, Speech normal. No gross facial asymmetry or gross focal neurological deficits. Psychiatric: Appropriate mood and affect Assessment/Plan Assessment:??This is a 57-year-old lady with past medical history of A-fib/a flutter, active cigarette smoker used to smoke 2 pack/day, now down to 1 pack/day over a year, history of COPD not on any home oxygen, TAMI on BiPAP at 1 L at night/naps, type 2 diabetes not on any home medication, fibromyalgia, bipolar disorder, chronic back pain, degenerative joint disease of lumbar spine, PTSD, restless leg syndrome, history of pseudoseizure was transferred from cardiology service for observation forCOPD exacerbation with shortness of breath. ?? COPD exacerbation (J44.1):??not on home o2 hypoxia post ablation and SOB diffuse wheezing on exam R > L still active smokerk ?? Plan obtain CXR Breo instead of Symbicort as not formulary DuoNeb q4hr prn Prednisone 40mg daily x 5 days Incentive spirometry counselled to quit smoking completely cont BiPAP w/ 1 L NC at night and nap time closely monitor resp status target o2 88-92% ? A-fib (I48.91):??/ S/P ablation of atrial fibrillation (Z98.890):??done 06/24 ; has h/o x2 ablation in the past cont tele monitor per cardiology : hold metoprolol today ; DC amiodarone and diltiazem cont Xarelto Continue furosemide 40 mg daily ? Nicotine dependence (F17.200):??declined NRT ; counselled to quit completely used to smoke 2 PPD , now down to 1 PPD for over a year ?? TAMI treated with BiPAP (G47.33):??cont BiPAP at night and nap w/ 1 L NC ?? h/o Cellulitis (L03.90):??h/o recurrent BLE cellulitis cont home med Pen V 250mg BID ?? History of recurrent UTI (urinary tract infection) (Z87.440):??reported taking Nitrofurantoin chronically but no recent prescription on ext med review. i called [facility] : last prescribed 28 days supply on 02/24/[address] Lee will hold for now ?? Type 2 diabetes mellitus (E11.9):??not on any home med Plan check a1c SSI insulin POC glucose AC HS ?? HLD (hyperlipidemia) (E78.5):??Continue rosuvastatin 10 mg daily ?? PTSD (post-traumatic stress disorder) (F43.10):??/ Restless leg syndrome (G25.81):??/ Bipolar disorder (F31.9):??Continue home medication duloxetine 60 mg in the morning, 40 mg bedtime Continue lamotrigine 250 mg daily at bedtime Continue ropinirole 0.5 mg 3 times daily ?? Chronic back pain (M54.9):? Tylenol, cyclobenzaprine, oxycodone as needed for pain ?? Code Status:??full code ; confirmed but she does not want to be in a vegetative state ?Order Code Status:??Code Status Ordered ?? VTE Prophylaxis:??xarelto ?VTE Prophylaxis Assessment:??VTE Prophylaxis Ordered ?? Discharge Planning:?Disclaimer: ??This note ??was accomplished with use of [employer] voice recognition software, which is prone to medical and other word misidentifications and grammatical errors. ??The physician does strive to identify and correct these, but some could still be present. ??Please do not hesitate to contact the physician for clarifications. Histories Allergies Allergies ?(Active and Proposed Allergies Only) Adhesive Bandage? (Severity: Unknown severity, Onset: Unknown) Dust? (Severity: Unknown severity, Onset: Unknown) ?Reactions: copd exac/sinus congestion ? Past Medical History/Problem List Active Problems??(40) Acute exacerbation of COPD with asthma Anticoagulant long-term use Arthritis of knee - bilateral Bipolar disorder NOS Cervical radiculopathy - left Chronic back pain Chronic deep vein thrombosis (DVT) Chronic obstructive pulmonary disease (COPD) Chronic pain syndrome Cigarette smoker Congestive heart failure DJD (degenerative joint disease), lumbar Encounter for screening colonoscopy Essential tremor Fatigue Fibromyalgia Gastric banding status Hyperparathyroidism retirement current use of opiate analgesic Lymphedema Nausea Overactive bladder Paroxysmal atrial flutter Persistent moderate somatic symptom disorder with predominant pain Prophylactic antibiotic - daily Pen VK for lymphedema , prevention of cellulitis Pruritic rash Pseudogout of knees Pseudoseizures PTSD - Post-traumatic stress disorder Recurrent bacterial cystitis Restless leg syndrome Sciatica Scoliosis Severe obesity Severe obstructive sleep apnea-hypopnea syndrome Spinal stenosis, lumbar Stasis dermatitis Straining with stools Type 2 diabetes mellitus with hyperglycemia UI (urinary incontinence) ? Past Surgical History Bone density scan - due 2020: 10/16/16 Midurethral sling with tension-free vaginal tape, cystoscopy.: 11/08/13 Transvaginal hysterectomy, robotic sacrocolpopexy, midurethral sling, cystoscopy: 12/09/12 removal neurostimulator October 2010: 10/28/10 implanted lumbar neurostimulator: 01/03/10 right knee surgery x 2 PVR 2011 normal low extremity venous duplex 2011 neg for DVT PFT's 2011 ? Social History Alcohol Details:??Use: Past. Employment/School Details:??Status: Disabled. Exercise Details:??Self assessment: Poor condition. ??Regular exercise: No. Home/Environment Details:??Living situation: Home/Independent. ??Lives with: Children. ??Domestic violence in household: No. Nutrition/Health Details:??Diet: Regular. ??Caffeine intake amount: 2 cups. ??Feels highly stressed: Yes. Sexual Details:??Sexually involved in last 6 months: No. Substance Abuse Details:??Use: Never. Tobacco Details:??Current every day smoker, Other: 1 pack daily. ??Type: Cigarettes. ? Psychosocial History ? Family History Mother: Unknown (origin) Sister: RA - Rheumatoid arthritis; Scleroderma ? History No previous pregnancies history have been recorded ? Medications Home Medications Albuterol (Albuterol (Eqv-ProAir HFA) 90 mcg/inh inhalation aerosol)?See Instructions?INHALE 2 PUFFS BY MOUTH EVERY FOUR HOURS NEEDED FOR WHEEZING OR SHORTNESS OF BREATH Budesonide-Formoterol (Symbicort 160mcg/4.5mcg Inhaler)?2?puff(s)?Inhalation?2 times a day Clonidine (cloNIDine 0.1 mg oral tablet)?1?tablet?By Mouth?2 times a day?as needed?ANXIETY (VIAL.? NEEDED Cyclobenzaprine (cyclobenzaprine 5 mg oral tablet)?1?tab(s)?By Mouth?3 times a day?as needed? NEEDED?SPASM (VIAL. Docusate (docusate sodium 100 mg oral capsule)?100?Milligram?1?capsule?By Mouth?2times a day?hold for loose stool Duloxetine (duloxetine 60 mg oral enteric coated capsule)?1?capsule?60?Milligram?By Mouth?Daily in AM Duloxetine (duloxetine 20 mg oral enteric coated capsule)?2?capsule?40?Milligram?By Mouth?Daily at bedtime Furosemide (furosemide 40 mg oral tablet)?40?Milligram?1?tablet?By Mouth?Daily Ipratropium Nasal (ipratropium nasal 21 mcg/inh spray)?2?spray(s)?42?Microgram?Nares, Both?2 times a day Lamotrigine (lamotrigine 200 mg oral tablet)?1?tab(s)?200?Milligram?By Mouth?Daily at bedtime Lamotrigine (lamotrigine 25 mg oral tablet)?50?Milligram?2?tablet?By Mouth?Daily at bedtime Loratadine (loratadine 10 mg oral tablet)?1?tablet?By Mouth?Daily?R1. Metoprolol (metoprolol 50 mg oral tablet, extended release)?50?Milligram?1?tablet?ByMouth?Daily Nicotine (nicotine 21 mg/24 hr transdermal film, extended release)?1?patch(es)?Topically?Daily penicillin V potassium (penicillin V potassium 250 mg oral tablet)?1?tab(s)?By Mouth?2 times a day?^1R1,1R4. rivaroxaban (Xarelto 20 mg oral tablet)?1?tab(s)?20?Milligram?By Mouth?Daily at supper Ropinirole (rOPINIRole 0.5 mg oral tablet)?1?tab(s)?By Mouth?3 times a day?^1R1,1R3,1R4. Rosuvastatin (rosuvastatin 10 mg oral tablet)?1?tab(s)?By Mouth?Daily?^1R1. ? Inpatient Medications Medications (22) Active SCHEDULED: (16) Albuterol/Ipratropium Inhalation Halina 3mL (Duoneb Inhalation Solution) ??1 vials, BAND Nebulizer, 4 times a day Breo Ellipta 200 mcg / 25 mcg Inhaler (Breo Ellipta 200 mcg-25 mcg Inhaler) ??1 puffs, Inhalation, Daily Budesonide 0.25 mg/2 mL Inhalation Susp (Pulmicort Inhalation Suspension) ??0.25 mg 2 mL, BAND Nebulizer, 2 times a day Docusate Sodium 100 mg Capsule (docusate sodium 100 mg oral capsule) ??100 mg 1 capsule, By Mouth, 2 times a day Duloxetine 20 mg Capsule (Duloxetine) ??40 mg, By Mouth, Daily at bedtime Duloxetine 60 mg Capsule (Duloxetine) ??60 mg, By Mouth, Daily in AM Furosemide 40 mg Tablet (furosemide 40 mg oral tablet) ??40 mg, By Mouth, Daily Insulin Lispro 100 units/mL Inj (3mL) (Insulin LISPRO Sliding Scale) ??2-10 units, Subcutaneous Injection, 3 times a day before meals LamoTRIGINE 100 mg Tablet (lamotrigine 100 mg oral tablet) ??200 mg, By Mouth, Daily at bedtime LamoTRIGINE 25 mg Tablet (lamotrigine 25 mg oral tablet) ??50 mg, By Mouth, Daily at bedtime Penicillin V K 250 mg Tablet (Penicillin Tablet) ??250 mg, By Mouth, 2 times a day PredniSONE 20 mg Tablet (predniSONE 20 mg oral tablet) ??40 mg, By Mouth, Daily PredniSONE 20 mg Tablet (predniSONE 20 mg oral tablet) ??40 mg, By Mouth, Once Rivaroxaban 20 mg Tablet (Xarelto) ??20 mg, By Mouth, Daily at supper Ropinirole 0.25 mg Tablet (rOPINIRole 0.25 mg oral tablet) ??0.5 mg, By Mouth, 3 times a day Rosuvastatin 5 mg Tablet (rosuvastatin 5 mg oral tablet) ??10 mg, By Mouth, Daily CONTINUOUS: (0) PRN: (6) Acetaminophen 325 mg Tablet (Tylenol 325 mg oral tablet) ??650 mg, By Mouth, Every 4 hours Albuterol 90mcg/Inhalation Inhaler HFA (albuterol CFC free 90 mcg/inh inhalation aerosol) ??180 mcg2 puffs, Inhalation, Every 4 hours Albuterol/Ipratropium Inhalation Halina 3mL (Duoneb Inhalation Solution) ??1 vials, BAND Nebulizer, Every 4 hours Clonidine 0.1 mg Tablet (cloNIDine 0.1 mg oral tablet) ??0.1 mg, By Mouth, 2 times a day Cyclobenzaprine 10 mg Tablet (cyclobenzaprine 10 mg oral tablet) ??5 mg, By Mouth, 3 times a day OxyCODONE 5 mg IR Tablet (oxyCODONE 5 mg oral tablet) ??5 mg, By Mouth, Every 6 hours ? Vaccinations and Immunoprophylaxis hepatitis B adult vaccine: 0 Unknown (06/14/02 07:00:00) influenza virus vaccine, inactivated: 0.5 mL (06/03/23 12:49:00) influenza virus vaccine, inactivated: 0.5 mL (05/05/22 16:05:00) influenza virus vaccine, inactivated: 0.5 mL (06/25/21 14:50:00) influenza virus vaccine, inactivated: 0.5 mL (04/30/20 14:50:00) influenza virus vaccine, inactivated: 0.5 mL (05/23/19 14:46:00) influenza virus vaccine, inactivated: 0.5 mL (04/27/18 10:21:00) influenza virus vaccine, inactivated: 0.5 mL (07/08/17 12:00:00) influenza virus vaccine, inactivated: 0.5 mL (04/01/17 14:10:00) influenza virus vaccine, inactivated: 0 Unknown (08/12/16 12:00:00) influenza virus vaccine, inactivated: 0.5 mL (05/23/14 11:18:00) influenza virus vaccine, inactivated: 0.5 mL (06/07/13 15:11:00) influenza virus vaccine, inactivated: 0.5 Unknown (04/09/11 08:00:00) influenza virus vaccine, inactivated: 0 Unknown (03/18/10 08:00:00) influenza virus vaccine, inactivated: 0.5 Unknown (04/21/09 08:00:00) influenza virus vaccine, inactivated: 0.5 Unknown (06/19/08 07:00:00) influenza virus vaccine, inactivated: 0.5 Unknown (05/10/07 08:00:00) pneumococcal 20-valent conjugate vaccine: 0.5 mL (06/03/23 12:49:00) pneumococcal 23-valent vaccine: 0.5 mL (10/08/11 08:22:00) SARS-CoV-2 (COVID-19) mRNA BNT-162b2 vac: 0.3 Unknown (01/02/21 08:00:00) SARS-CoV-2 (COVID-19) mRNA BNT-162b2 vac: 0.3 Unknown (12/02/20 08:00:00) SARS-CoV-2 mRNA ([id number]) vax: 0.3 Unknown (08/30/21 07:00:00) tetanus/diphtheria/pertussis, acel(Tdap): 0.5 mL (09/08/11 14:09:00) tetanus/diphtheria/pertussis, acel(Tdap): 0.5 Unknown (12/17/06 08:00:00) Fluvirin (oldterm): 0.5 mL (03/22/15 09:30:00) Fluzone Preservative-Free (oldterm): 0.5 mL (03/12/12 11:30:00) influ virus vac, H1N1, inactive(oldterm): 0.5 mL (05/08/11 14:09:00) ? Durable Medical Equipment Current home treatments: Oxygen therapy (06/25/23) Current home treatments: Oxygen therapy (06/25/23) On Admit Medical Equip Companies: [facility] (06/25/23) Discharge recommendations: Home with services (07/18/22) Service Categories #1: Blood work, Physical Therapy, Other: Coumadin Monitoring Fingerstick PT/INR's (07/17/22) Service Comments #1: The [facility] will call you the day after you are discharged to set up a visit time.If you do not hear from them, please call them at [facility] (07/17/22) ? Results Recent Labs BLOOD BANK Blood Type A Positive ()?? 06/24/2023 10:46 Antibody Screen Negative ()?? 06/24/2023 10:46 ?? BLOOD COUNT & DIFF WBC 7.6 k/mm3 ()?? 06/25/2023 01:37 RBC 4.26 m/mm3 ()?? 06/25/2023 01:37 Hgb 11.9 Gm/dL ()?? 06/25/2023 01:37 Hct 38.0 % ()?? 06/25/2023 01:37 MCV 89.2 femtoliters ()?? 06/25/2023 01:37 MCH 27.9 pg ()?? 06/25/2023 01:37 MCHC 31.3 g/dL (Low)?? 06/25/2023 01:37 Platelet Count 229 k/mm3 ()?? 06/25/2023 01:37 RDW-SD 51.3 femtoliters (High)?? 06/25/2023 01:37 MPV 10.4 femtoliters ()?? 06/25/2023 01:37 Nucleated RBC (Automated) 0.0 #/100 WBC'S ()?? 06/25/2023 01:37 Abs. NRBC 0.0 k/mm3 ()?? 06/25/2023 01:37 ?? CHEM GENERAL Sodium 137 mmol/L ()?? 06/25/2023 09:24 Potassium 5.0 mmol/L ()?? 06/25/2023 09:24 Chloride 98 mmol/L ()?? 06/25/2023 09:24 Bicarbonate Level 29 mmol/L ()?? 06/25/2023 09:24 Anion Gap 10 ()?? 06/25/2023 09:24 Glucose Level 227 mg/dL (High)?? 06/25/2023 09:24 BUN 19 mg/dL ()?? 06/25/2023 09:24 Creatinine-Blood 0.9 mg/dL ()?? 06/25/2023 09:24 Estimated GFR Creatinine 75 ML/MIN/1.73 M2 ()?? 06/25/2023 09:24 Calcium 9.4 mg/dL ()?? 06/25/2023 09:24 ?? COAG INR 1.3 (High)?? 06/24/2023 11:23 Protime (PT) 13.0 seconds (High)?? 06/24/2023 11:23 ?? URINE OTHER Est Creatinine Clearance 55.66 mL/min ()?? 06/25/2023 10:51 ?? VIROLOGY Influenza A PCR NEGATIVE ()?? 06/25/2023 13:55 Influenza B PCR NEGATIVE ()?? 06/25/2023 13:55 RSV PCR NEGATIVE ()?? 06/25/2023 13:55 COVID-19 PCR Specimen Source NASAL ()?? 06/25/2023 13:55 COVID-19 PCR Result NEGATIVE ()?? 06/25/2023 13:55 ? Abnormal Labs ?? BLOOD COUNT & DIFF ??Abs. NRBC ??0.0 k/mm3 () ??06/25/2023 01:37 ??MCHC ??31.3 g/dL (Low) ??06/25/2023 01:37 ??Nucleated RBC (Automated) ??0.0 #/100 WBC'S () ??06/25/2023 01:37 ??RDW-SD ??51.3 femtoliters (High) ??06/25/2023 01:37 ? CHEM GENERAL ??Estimated GFR Creatinine ??75 ML/MIN/1.73 M2 () ??06/25/2023 09:24 ??Glucose Level ??227 mg/dL (High) ??06/25/2023 09:24 ? VIROLOGY ??COVID-19 PCR Specimen Source ??NASAL () ??06/25/2023 13:55 ??COVID-19 PCR Result ??NEGATIVE () ??06/25/2023 13:55 ??Influenza A PCR ??NEGATIVE () ??06/25/2023 13:55 ??Influenza B PCR ??NEGATIVE () ??06/25/2023 13:55 ??RSV PCR ??NEGATIVE () ??06/25/2023 13:55 ? Note: Critical results are displayed in red. ? Blood Glucose Trend Glucose Level:??227 mg/dL??High (06/25/23 09:24:00) Glucose Level:??359 mg/dL??High (06/25/23 01:37:00) ? CBC, CBC w/Diff?? CBC?? WBC: 7.6 k/mm3 (37) RBC: 4.26 m/mm3 (:) Hct: 38 % (:) RDW-SD:??51.3 femtoliters??High () Nucleated RBC (Automated): 0 #/100 WBC'S () Abs. NRBC: 0 k/mm3 () ? BMP, Mg, and Phos Anion Gap: 10 (09:24) Bicarbonate Level: 29 mmol/L (09:24) BUN: 19 mg/dL (09:24) Calcium: 9.4 mg/dL (09:24) Chloride: 98 mmol/L (09:24) Creatinine-Blood: 0.9 mg/dL (09:24) Estimated GFR Creatinine: 75 ML/MIN/1.73 M2 (09:24) Glucose Level:??227 mg/dL??High (:24) Potassium: 5 mmol/L (09:24) Sodium: 137 mmol/L (09:24) ?? Coagulation Profile?? No qualifying data available. ?? LFT?? No qualifying data available. ?? Urinalysis Est Creatinine Clearance: 55.66 mL/min (10:51) Est Creatinine Clearance: 41.74 mL/min (03:03) Est Creatinine Clearance: 62.61 mL/min (17:39) ?? Microbiology ?? COVID-19, RSV, and Flu A/B, Rapid PCR?? Completed?? Source: Nasal Body Site: Nose Collected Dt/Tm: 06/25/2023 13:59 Last Updated Dt/Tm: 06/25/2023 15:04 ? Blood Gases?? No qualifying data available. ?? Uric/LDH?? No qualifying data available. ?? EKG study * Event Display: ECG 12-Lead Authored Date: Please click on pdf link to open report * Event Display: ECG 12-Lead Authored Date: Ventricular Rate: 59 BPM Atrial Rate: 59 BPM P-R Interval: 192 ms QRS Duration: 90 ms Q-T Interval: 460 ms QTC Calculation(Bazett): 455 ms P [place]: 46 degrees R [place]: 34 degrees T [place]: 40 degrees Sinus bradycardia Otherwise normal ECG When compared with ECG of 24-JUN-2023 10:37, Sinus rhythm has replaced Junctional rhythm Vent. rate has increased BY 20 BPM Confirmed by AGUSTÍN CAMILO MD ([id number]) on 06/26/2023 10:45:56 AM [place]: AGUSTÍN CAMILO MD * Event Display: ECG 12-Lead Authored Date: [id number] Please click on pdf link to open report * Event Display: ECG 12-Lead Authored Date: [id number] Ventricular Rate: 39 BPM Atrial Rate: 300 BPM QRS Duration: 88 ms Q-T Interval: 528 ms QTC Calculation(Bazett): 425 ms R [place]: 36 degrees T [place]: 38 degrees Junctional bradycardia Abnormal ECG When compared with ECG of 04-JUL-2022 11:13, Junctional rhythm has replaced Sinus rhythm Confirmed by VEE ALONSO MD ([id number]) on 06/24/2023 1:42:22 PM [place] * Carlos Villa RN: PERFORM, SIGN, VERIFY Event Display: [facility] Authored Date: [id number] Patient: FRANKLIN HARRISON Age: 57 years Sex: Female : 1965 Associated Diagnoses: None Author: Carlos Villa RN Findings Problem Related to Alteration in Respiratory Function (new) : Alteration in Respiratory Function/new 06/26/2023 12:16 EST Alteration in Resp Status Related to COPD Goals & Outcomes, Respiratory Pt will maintain/resume baseline physical assessment Interventions, Respiratory Position for comfort & optimal oxygenation, Teach the proper use of inhalers, Teach Pt/caregiver Smoking cessation education BH Goals/Interventions, Respiratory Yes Respiratory, Problem Start 06/25/2023 11:00 Reviewed Plan with, Respiratory Patient Patient Progression, Respiratory Patient progressing according to plan . Nursing Data Respiratory/Pulmonary Data. : Respiratory/Pulmonary Data. 06/26/2023 9:00 EST Respiratory Symptoms Dyspnea with exertion Chest expansion Symmetrical Accessory Muscles use No Cough Productive Respiratory pattern Regular Left Upper Lobe Breath Sounds Wheezing, expiratory, Wheezing, inspiratory Right Upper Lobe Breath Sounds Wheezing, expiratory, Wheezing, inspiratory Right Middle Lobe Breath Sounds Clear Left Lower Lobe Breath Sounds Clear Right Lower Lobe Breath Sounds Clear Respiratory distress Mild Respiratory Treatment(s) Cough and deep breathe Respiratory Treatment(s) Updraft Nebulizer Therapy/MDI Respiratory WNL except . Vital Signs : VITAL SIGNS SECTION 06/26/2023 11:21 EST Early Warning Score 5.00 06/26/2023 11:21 EST Temperature 97.8 DegF Temperature Route Oral Pulse Rate 67 bpm Respiratory Rate 18 br/min Systolic Blood Pressure 135 mm Hg Diastolic Blood Pressure 98 mm Hg H Blood pressure sites Arm, right Mean Arterial Pressure 110 mm Hg Pulse Pressure 37 mm Hg Oxygen Saturation 94 % Mode of Delivery (Oxygen) Room air 06/26/2023 8:06 EST Early Warning Score 3.00 06/26/2023 8:06 EST Temperature 97.8 DegF Temperature Route Oral Pulse Rate 65 bpm Respiratory Rate 18 br/min Systolic Blood Pressure 134 mm Hg Diastolic Blood Pressure 73 mm Hg Blood pressure sites Arm, right Mean Arterial Pressure 93 mm Hg Pulse Pressure 61 mm Hg Oxygen Saturation 96 % Mode of Delivery (Oxygen) Room air . Narrative/Incidental A&Ox4, SB with intermittent junctional beats. Bilateral groin sites with minor ecchymosis, DSD CDI. productive cough with scant sputum production. inspiratory and expiratory wheezes noted to RUL MARI. provided patient education regarding smoking cessation, use of inhaler, and proper positioning to ease work of breathing. pt denies CP, SOB, and dizziness. see [facility] biophysical and tele for full assessments. . Discharge Information Case Management Discharge Plan : Case Management Discharge Plan Data 06/26/2023 11:43 EST Discharge Level of Care at Discharge Home/Prison/Foster Care * Kourtney Bolden NP: PERFORM Event Display: Progress Note Hospital Authored Date: [id number] Patient: ??FRANKLIN HARRISON ? Age:??57 Years?Sex:??Female?:??1965?? Patient Hx Provider Clinical Summary Patient is a 57 year old female with past medical history significant for??Atrial??flutter, currenttobacco use, COPD, Type 2 Diabetes. She has been cardioverted twice for A-fib with RVR. Patient presented to the hospital for scheduled A-fib ablation.??She underwent successful A-fib ablation on 06/24 by ??Desiree. Patient transferred??to medical service for??COPD exacerbation.? History of Present Illness/Interval History Patient examined at the bedside. No acute events overnight. Tele: Sinus rhythm, rate 60s Hemodynamically stable. Denies chest pain, SOB has improved.?? Review of Systems 12 point review of symptoms as noted in the??HPI and reviewed in detail with the patient; pertinentpositives noted otherwise??negative. Physical Exam Vitals & Measurements T:??97.8?F?? HR:??65??(Peripheral)?? RR:??20?? RR:??20?? BP:??134/73?? SpO2:??96%?? HT:??160??cm?? WT:??112.4??kg?? BMI:??43.91?? Weight lb/oz: 247 lb 13 oz Mental Status: Alert and oriented x3, appears comfortable Head: Normocephalic Neck: Supple, no lymphadenopathy Respiratory: Lungs sound wheezes. Respiratory rate regular Cardiovascular: S1 S2, no JVD, no murmur, rub or gallop Gastrointestinal: Bowel sounds??present, abdomen soft Musculoskeletal: Moves all extremities equally Peripheral: + pulses, no clubbing or cyanosis, no edema Skin: no rash or lesion. bilateral groin stable, no bleeding, no hematoma, dressing d/c/i, +distal pulses?? Assessment/Plan 1. A-fib -s/p successful A-fib ablation, patient is in sinus rhythm -Discontinue metoprolol (had some junctional rhythm on 06/25) -discontinue??amiodarone and??Cardizem -Continue Xarelto for stroke preventions ?? 2. COPD exacerbation -Neb treatments for wheezing, supplemental oxygen -management per primary team.? Thank you for allowing us to participate in the care of this patient. Patient discussed with Dr. Ramírez. Patient is stable for discharge home from cardiac point, will arrange Outpatient follow up. ?? Kourtney Bolden NP [facility] ?? 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 Lymphedema Nausea Overactive bladder Paroxysmal atrial flutter Persistent moderate somatic symptom disorder with predominant pain Prophylactic antibiotic - daily Pen VK for lymphedema , prevention of cellulitis Pruritic rash Pseudogout of knees Pseudoseizures PTSD - Post-traumatic stress disorder Recurrent bacterial cystitis Restless leg syndrome Sciatica Scoliosis Severe obesity Severe obstructive sleep apnea-hypopnea syndrome Spinal stenosis, lumbar Stasis dermatitis Straining with stools Type 2 diabetes mellitus with hyperglycemia UI (urinary incontinence) Procedure/Surgical History Bone density scan - due 2020: 10/16/16 Midurethral sling with tension-free vaginal tape, cystoscopy.: 11/08/13 Transvaginal hysterectomy, robotic sacrocolpopexy, midurethral sling, cystoscopy: 12/09/12 removal neurostimulator October 2010: 10/28/10 implanted lumbar neurostimulator: 01/03/10 right knee surgery x 2 low extremity venous duplex 2011 neg for DVT PVR 2011 normal PFT's 2012 Hospital Medications Medications (21) Active SCHEDULED: (15) Breo Ellipta 200 mcg / 25 mcg Inhaler (Breo Ellipta 200 mcg-25 mcg Inhaler) ??1 puffs, Inhalation, Daily Docusate Sodium 100 mg Capsule (docusate sodium 100 mg oral capsule) ??100 mg 1 capsule, By Mouth, 2 times a day Duloxetine 20 mg Capsule (Duloxetine) ??40 mg, By Mouth, Daily at bedtime Duloxetine 60 mg Capsule (Duloxetine) ??60 mg, By Mouth, Daily in AM Furosemide 40 mg Tablet (furosemide 40 mg oral tablet) ??40 mg, By Mouth, Daily Insulin Lispro 100 units/mL Inj (3mL) (Insulin LISPRO Sliding Scale) ??2-10 units, Subcutaneous Injection, 3 times a day before meals LamoTRIGINE 100 mg Tablet (lamotrigine 100 mg oral tablet) ??200 mg, By Mouth, Daily at bedtime LamoTRIGINE 25 mg Tablet (lamotrigine 25 mg oral tablet) ??50 mg, By Mouth, Daily at bedtime Nicotine 21 mg / 24 hour Patch (Nicotine Topical) ??21 mg, Topically, Daily Penicillin V K 250 mg Tablet (Penicillin Tablet) ??250 mg, By Mouth, 2 times a day PredniSONE 20 mg Tablet (predniSONE 20 mg oral tablet) ??40 mg, By Mouth, Daily Remove Patch (Remove ??Patch) ??1 each, Topically, Daily Rivaroxaban 20 mg Tablet (Xarelto) ??20 mg, By Mouth, Daily at supper Ropinirole 0.25 mg Tablet (rOPINIRole 0.25 mg oral tablet) ??0.5 mg, By Mouth, 3 times a day Rosuvastatin 5 mg Tablet (rosuvastatin 5 mg oral tablet) ??10 mg, By Mouth, Daily CONTINUOUS: (0) PRN: (6) Acetaminophen 325 mg Tablet (Tylenol 325 mg oral tablet) ??650 mg, By Mouth, Every 4 hours Albuterol 90mcg/Inhalation Inhaler HFA (albuterol CFC free 90 mcg/inh inhalation aerosol) ??180 mcg2 puffs, Inhalation, Every 4 hours Albuterol/Ipratropium Inhalation Halina 3mL (Duoneb Inhalation Solution) ??1 vials, BAND Nebulizer, Every 4 hours Clonidine 0.1 mg Tablet (cloNIDine 0.1 mg oral tablet) ??0.1 mg, By Mouth, 2 times a day Cyclobenzaprine 10 mg Tablet (cyclobenzaprine 10 mg oral tablet) ??5 mg, By Mouth, 3 times a day OxyCODONE 5 mg IR Tablet (oxyCODONE 5 mg oral tablet) ??5 mg, By Mouth, Every 6 hours Follow-Up Appointments Added Follow Up ?Time Frame ?Comments Kyle Ahumada DO?1 week Lab Results Cardiology Labs WBC: 7.6 k/mm3 (06/25/23) RBC: 4.26 m/mm3 (06/25/23) Hgb: 11.9 Gm/dL (06/25/23) Hct: 38 % (06/25/23) MCV: 89.2 femtoliters (06/25/23) MCH: 27.9 pg (06/25/23) MCHC:??31.3 g/dL??Low (06/25/23) Platelet Count: 229 k/mm3 (06/25/23) RDW-SD:??51.3 femtoliters??High (06/25/23) Nucleated RBC (Automated): 0 #/100 WBC'S (06/25/23) Abs. Neut: 3 k/mm3 (07/04/22) Abs. Lymph: 3.1 k/mm3 (07/04/22) Abs. Irion: 0.6 k/mm3 (07/04/22) Abs. Eo: 0.3 k/mm3 (07/04/22) Abs. Baso: 0 k/mm3 (07/04/22) Neut %:??42.9 %??Low (07/04/22) Irion %: 8.3 % (07/04/22) Eos %: 4.6 % (07/04/22) Baso %: 0.6 % (07/04/22) Imm Gran: 0.1 % (07/04/22) Abs. Imm Gran: 0 k/mm3 (07/04/22) INR:??1.3??High (06/24/23) Protime (PT):??13 seconds??High (06/24/23) APTT: 29.5 seconds (07/04/22) Sodium: 134 mmol/L (06/26/23) Potassium: 5 mmol/L (06/26/23) Chloride: 98 mmol/L (06/26/23) Bicarbonate Level: 27 mmol/L (06/26/23) Glucose Level:??227 mg/dL??High (06/25/23) Hemoglobin A1C (Monitoring):??7.8 %??High (06/25/23) BUN: 19 mg/dL (06/25/23) Creatinine-Blood: 0.9 mg/dL (06/25/23) Calcium: 9.4 mg/dL (06/25/23) Nt-Probnp:??564 pg/mL??High (06/26/23) Diagnostic Impression ECG ECG 12-Lead * Preliminary * ?? 10:20:37 Please click on pdf link to open report ?? ECG 12-Lead * Preliminary * ?? 10:20:37 Ventricular Rate: 66 BPM Atrial Rate: 66 BPM P-R Interval: 162 ms QRS Duration: 90 ms Q-T Interval: 448 ms QTC Calculation(Bazett): 469 ms P [place]: 136 degrees R [place]: 16 degrees T [place]: 109 degrees Unusual P axis, possible ectopic atrial rhythm Low voltage QRS RSR???or QR pattern in V1 suggests right ventricular conduction delay Nonspecific T wave abnormality Prolonged QT Abnormal ECG When compared with ECG of 25-JUN-2023 08:00, Ectopic atrial rhythm has replaced Sinus rhythm Nonspecific T wave abnormality now evident in Inferior leads ?? [place]: , * Birgit Kimball RN: PERFORM, SIGN, VERIFY Event Display: Progress Note Hospital Authored Date: Patient: FRANKLIN HARRISON Age: 57 years Sex: Female : 1965 Associated Diagnoses: None Author: Birgit Kimball RN Findings Problem Related to Alteration in Respiratory Function (new) : Alteration in Respiratory Function/new 06/25/2023 11:00 EST Alteration in Resp Status Related to COPD Goals & Outcomes, Respiratory Pt will maintain/resume baseline physical assessment Interventions, Respiratory Assess for and report S&S of respiratory distress, Position for comfort & optimal oxygenation BH Goals/Interventions, Respiratory Yes Respiratory, Problem Start 06/25/2023 11:00 Reviewed Plan with, Respiratory Patient Patient Progression, Respiratory Plan Initiation . Nursing Data Vital Signs : VITAL SIGNS SECTION 06/25/2023 19:34 EST Temperature 98.6 DegF Temperature Route Oral Pulse Rate 103 bpm H Respiratory Rate 18 br/min Systolic Blood Pressure 115 mm Hg Diastolic Blood Pressure 68 mm Hg Blood pressure sites Arm, left Mean Arterial Pressure 84 mm Hg Pulse Pressure 47 mm Hg Oxygen Saturation 98 % Mode of Delivery (Oxygen) Room air 06/25/2023 16:54 EST Early Warning Score 0.00 06/25/2023 16:54 EST Temperature 98.3 DegF Temperature Route Oral Pulse Rate 62 bpm Respiratory Rate 18 br/min Systolic Blood Pressure 107 mm Hg Diastolic Blood Pressure 72 mm Hg Blood pressure sites Arm, left Mean Arterial Pressure 84 mm Hg Pulse Pressure 35 mm Hg Oxygen Saturation 96 % Mode of Delivery (Oxygen) Room air 06/25/2023 11:17 EST Temperature 98.7 DegF Temperature Route Oral Pulse Rate 58 bpm Respiratory Rate 18 br/min Systolic Blood Pressure 107 mm Hg Diastolic Blood Pressure 60 mm Hg Blood pressure sites Arm, left Mean Arterial Pressure 76 mm Hg Pulse Pressure 47 mm Hg Oxygen Saturation 100 % Mode of Delivery (Oxygen) Room air 06/25/2023 8:02 EST Early Warning Score 3.00 06/25/2023 8:02 EST Temperature 98.1 DegF Temperature Route Oral Pulse Rate 55 bpm Respiratory Rate 18 br/min Systolic Blood Pressure 119 mm Hg Diastolic Blood Pressure 50 mm Hg L Blood pressure sites Arm, right Mean Arterial Pressure 73 mm Hg Pulse Pressure 69 mm Hg Mode of Delivery (Oxygen) Room air . Evaluation This a.m. pt c/o of SOB found to be sating 87% on room air w/ audible wheezing throughout lungs- MDnotified pt has h/o of COPD- nebs ordered and given w/ good effect sats up >95%, less wheezing heard. Prednisone started. Pt transitioned to obs and admitted under medical team. SB/junctional on tele- metoprolol d/c'd. See biophysical, [facility] and tele for full assessments.. Consult note * Bruce GRIDER, Sparkle S: PERFORM, SIGN, VERIFY, MODIFY, SIGN Event Display: Consultation Note Authored Date: [id number] Patient: FRANKLIN HARRISON Age: 57 years Sex: Female : 1965 Associated Diagnoses: None Author: Sparkle Barrera MD Assessment Post Anesthesia Evaluation Note Vital signs in patient's normal range: yes. Respiratory function stable; airway patent: yes. Cardiovascular function and hydration status stable: yes. Mental status recovered: patient participates in evaluation and/or is at baseline: yes. Pain control satisfactory: yes. Nausea and vomiting control satisfactory: yes. Comments: Patient evaluated POD 1 from Aflutter Ablation. Patient noted to have an infiltrated IV in dorsum of left hand. Extremely swollen and red per report. It is unclear when infiltration occurred and how much crystalloid, phenylephrine and other medications extravasted. At bedside exam, markerdemarcation for swelling border was markedly improved. No erythema noted, moving all fingers, no motor deficits to interosseaous muscles or wrist extensor flexor. No sensory or moter deficits. Skin is of normall pallor with mild swelling. Patient states it is markedly improved. NITRO paste bandage on hand. Pt was otherwise in good spirits and happy Ablation was successful. CARE used for conversation regarding adverse event. Current issues regarding SOB, difficulty breathing, low sats 88- 92% being followed by primary team for further workup and management. Patient was about to obtain COVID nasal swab at the time of my bedside assessment.. Patient Care team information Care Team Personnel Name: Sandra Wills NP Position: [facility] PCO Associate Professional Member Role: Primary Care Nurse Address: Address: [address] [place] [address] [place] [address]- [place] Name: Marley Alejo RN Position: [facility] RN Member Role: Primary Care Nurse Name: Rashi Dewitt RN Position: [facility] RN Member Role: Primary Care Nurse Name: Alma Delia Fonseca PharmD Position: [facility] Associate Professional Member Role: Lifetime Consulting Provider Address: Address: [address] [place] [address] [place] [address]- [place] Name: Yolis Mattson RN Position: S RN Member Role: Primary Care Nurse Name: Priscila Garzon RN Position: S RN Member Role: Primary Care Nurse Name: Kyle Ahumada DO Position: [facility] Physician - Primary Care Member Role: PCP Address: Address: [address] [place] [address]- [place] Name: Renea Mart RN Position: [facility] RN Member Role: Primary Care Nurse Care Team Related Persons Name: FAUZIA JANSEN Address: home [address] [place] [address] Name: AURELIA SHETH Address: home [address] [place] [address] Name: BRE OSORIO Address: home [address] [place] [address]
--- OUTSIDE RECORDS SUMMARY | 2024-01-02 21:32 | XMS_ITS | Continuity of Care Document ---
Author Organization [facility] Valerie n's [facility] Address [address] [place] [address], [address] [place] [address]- Care Team Providers Care Broadband Engineer Name Role Phone Fuentes Garcia MD Primary Care Physician [facility] - 07[facility]30/19 [facility] [employer] [facility] [address] [facility], 4th [place] [address]- Attending Physician: Not on Staff, Attending MD [...] H1N1, inactive(oldterm) 7 05/08/11 Given 1Result Comment: [id number] 2Result Comment: [07/08/2017] [id number] 3Admin Note: [facility] 4Admin Note: [facility] [...] Maintenance, 07/18/19 9:13:00 EST, [facility] [address] [place] [address], 162, cm, 05/23/19 11:50:00 EDT, Height, 116.4, kg, 05/04/19 11:52:00 EDT, Dry Weight Start Date: 07/18/19 Stop Date: 07/19/19 Status: Ordered chlorthalidone 25 mg oral tablet 25 mg, 1, tablet, By Mouth, Daily, # 30 tablet, Refills 2, Tot. Refills 2, Maintenance, 06/17/19 14:30:22 EST, Route to Pharmacy Electronically, NCPDP_ID- [id number], [facility] [address] [facility], please schedule appt for further refills Start Date: 06/17/19 Status: Ordered Claritin 10 mg oral tablet 10 mg, 1, tablet, By Mouth, Daily, for 30 days, # 30 tablet, Refills 11, Tot. Refills 11, Acute 05/11/20 17:36:41 EDT, 05/17/19 17:36:41 EDT, Route to Pharmacy Electronically, NCPDP_[id number], [facility] [address] Start Date: 05/17/19 Stop Date: 05/11/20 [...] mL, 5 Refills, Maintenance, 10/01/18 10:08:42 EST, [place], 2 sprays Nares, Both 2 times a [...] 12/08/18 12:09:04 EDT, Route to Pharmacy Electronically, NCPDP_[id number], [facility] [address] [facility] Start Date: 12/08/18 Status: Ordered MiraLax [...] 1 tablet by mouth twice a day, [address] Start Date: 05/17/19 Status: Ordered penicillin [...] IF NEEDED FOR WHEEZING - REPLACES PROAIR, [address] Start Date: 01/24/19 Status: Ordered Vitamin [...]
--- OUTSIDE RECORDS SUMMARY | 2024-01-02 21:32 | XMS_ITS | Continuity of Care Document ---
Author Organization [facility] Robin Jane Nolberto Address [address] [place] [address]- Care Team Providers Care Official Court Interpreter Name Role Phone Fuentes Garcia MD Primary Care Physician [facility] 02[facility]20 - 03/28/20 [facility] Robin Bolañosley Adult [address] [place] [address]- [facility] Allergies, Adverse Reactions, Alerts Substance [...] H1N1, inactive(oldterm) 7 05/08/11 Given 1Result Comment: [id number] 2Result Comment: [07/08/2017] [id number] 3Admin Note: [facility] 4Admin Note: [facility] [...] 12/06/19 9:16:00 EDT, Route to Pharmacy Electronically, [facility][id number], please schedule appt for further refills, 162, cm, 09/21/19 12:01:00 Laurie SPAIN... Start Date: 12/06/19 Status: Ordered Claritin 10 mg oral tablet 10 mg, 1, tablet, By Mouth, Daily, for 30 days, # 30 tablet, Refills 11, Tot. Refills 11, Acute 05/11/20 17:36:41 EDT, 05/17/19 17:36:41 EDT, Route to Pharmacy Electronically, [facility]DP[facility]ID-[id number][facility] [address] Start Date: 05/17/19 Stop Date: 05/11/20 Status: Ordered colchicine 0.6 mg oral tablet See Instructions, take 1 tablet by mouth once daily if needed for PSEUDOGOUT pain, # 30 tablet, Refills 5, Tot. Refills 5, Soft Stop, 01/05/20 8:41:00 EDT, Instructions Replace Required Details, Route to Pharmacy Electronically, [facility] #... Start Date: 01/05/20 Status: Ordered Disposable [...] Gm, 1 Refills, Maintenance, 12/20/19 16:30:00 EDT, [facility] #[id number], 162, cm, 09/21/19 12:01:00 EST, Height, 116.4, [...] mL, 5 Refills, Maintenance, 10/01/18 10:08:42 EST, [place], 2 sprays Nares, Both 2 times a [...] 03/22/20 16:34:00 EDT, Route to Pharmacy Electronically, [facility] #[id number], 165, cm, 02/02/2014:39:00 EDT, Height, 127, kg, [...] 0 Refills, Maintenance, 03/26/20 17:11:00 EDT, Tablet, [facility] #[id number], 03/27/20, 165, cm, 02/03/20 14:39:00 EDT, He... [...] 11 Refills, Soft Stop, 01/19/20 11:46:00 EDT, [facility] #[id number], 165, cm, 01/16/20 6:17:00 EDT, Height, 128.1, kg, 01/16/20 6:17:00 EDT, Dry Weight Start Date: 01/19/20 Status: Ordered warfarin 5 mg oral tablet 1 tablet = 5 mg, By Mouth, Daily, dosing subject to change pending inr lab values, # 30 tablet, 5 Refills, Maintenance, 02/15/20 13:21:00 EDT, Tablet, [facility] #[id number], 165, cm, 02/03/20 14:39:00 EDT, Height, 127, [...]
--- OUTSIDE RECORDS SUMMARY | 2024-01-02 21:32 | XMS_ITS | Continuity of Care Document ---
Author Organization [facility] Buck Nolberto Address [address] [place] [address]- Care Team Providers Care Air Shovel Operator Name Role Phone Radha GRIDER, Fuentes Kenny Primary Care Physician Encounter [facility] Date(s): 12/02/19 - 12/09/19 [facility] Adult [address] [place] [address]- [facility] Encounter Diagnosis Chronic obstructive pulmonary disease (COPD)(Discharge Diagnosis) - 12/02/19 COPD exacerbation(Discharge Diagnosis) - 12/02/19 Pyelonephritis(Discharge Diagnosis) - 12/02/19 Attending Physician: Fuentes Garcia MD Allergies, Adverse [...] H1N1, inactive(oldterm) 7 05/08/11 Given 1Result Comment: [id number] 2Result Comment: [07/08/2017] [id number] 3Admin Note: [facility] 4Admin Note: [facility] 9-13 5Admin Note: Given at [facility] 6Admin Note: 8-12 GIVEN AT [facility] 7Admin Note: rcvd elsewhere Medications Acetaminophen = 650 mg, By Mouth, Every 4 hours, PRN Pain , Mild, 0 Refills, Maintenance, 06/09/14 2:27:05 Start Date: 06/09/14 Status: Ordered Bactrim DS 800 mg-160 mg oral tablet 1 tablet, By Mouth, Every 12 hours, for 14 days, # 28 tablet, 0 Refills, Acute 12/16/19 11:14:00 EDT, 12/02/19 11:14:00 EDT, Tablet, [facility], 1 tablet By Mouth Every 12 hours,x14 days, 162, cm, 09/21/19 12:01:00 EST, Height, 116.4, kg,... Start Date: 12/02/19 Stop Date: 12/16/19 Status: Ordered BiPAP Equipment AutoBiPAP max IPAP [...] 12/06/19 9:16:00 EDT, Route to Pharmacy Electronically, [facility] #[id number], please schedule appt for further refills, 162, cm, 09/21/19 12:01:00 EST, [facility]... Start Date: 12/06/19 Status: Ordered Claritin 10 mg oral tablet 10 mg, 1, tablet, By Mouth, Daily, for 30 days, # 30 tablet, Refills 11, Tot. Refills 11, Acute 05/11/20 17:36:41 EDT, 05/17/19 17:36:41 EDT, Route to Pharmacy Electronically, NCPDP_ID-[id number], [facility] - [address] [facility] Start Date: 05/17/19 Stop Date: 05/11/20 Status: [...] mL, 5 Refills, Maintenance, 10/01/18 10:08:42 EST, [place], 2 sprays Nares, Both 2 times a [...] 09/28/19 11:53:00 EST, Route to Pharmacy Electronically, [facility] #[id number], 162, cm, 09/21/2011:01:00 EST, Height, 116.4, kg, [...] AMOUNT, # 84 tablet, 0 Refills, Maintenance, 12/05/19 17:35:00 EDT, Tablet, [id number], 162, cm, 09/21/19 12:01:00 EST, Height, 116.4, kg... Start Date: 12/05/19 Status: Ordered OYSTER SHELL SHARIF-VIT D 500-400 See Instructions, # 300 tablet, take 1 tablet by mouth twice a day, [facility] [address] Start Date: 05/17/19 Status: Ordered penicillin [...] - REPLACES [facility], [facility] [address] Start Date: 01/24/19 Status: Ordered Vitamin [...] 5 Refills, Maintenance, 07/25/19 8:37:00 EST, Tablet, [facility] [address], 162, cm, 05/23/19 11:50:00 EDT, Height, [...] Chronic obstructive pulmonary disease (COPD) Discharge Diagnosis 12/02/19 COPD exacerbation Discharge Diagnosis 12/02/19 Pyelonephritis Discharge Diagnosis 12/02/19 Social History Social History Type Response Smoking Status 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
--- OUTSIDE RECORDS SUMMARY | 2024-01-02 21:32 | XMS_ITS | Continuity of Care Document ---
Author Organization [facility] Robin Jane Nolberto Address [address] [place] [address]- Care Team Providers Care Wood Veneer Taper Name Role Phone Kyle Ahumada DO Primary Care Physician [facility]): 09/23/23 - 10/23/23 [facility] Robin Bolañosley Adult [address] [place] [address]- Allergies, Adverse Reactions, Alerts Substance Reaction Severity [...] vaccine, inactivated 05/10/07 Jarrett rded SARS-CoV-2 mRNA ([id number]) vax 08/30/21 Recorded SARS-CoV-2 (COVID-19) mRNA BNT-162b2 vac 01/02/21 Recorded SARS-CoV-2 (COVID-19) mRNA BNT-162b2 vac 12/02/20 Recorded Fluvirin (oldterm) 10 03/22/15 Given Fluzone Preservative-Free (oldterm) 11 03/12/12 Gi octavio pneumococcal 23-valent vaccine 10/08/11 Given tetanus/diphtheria/pertussis, acel(Tdap) 09/08/11 Given tetanus/diphtheria/pertussis, acel(Tdap) 12/17/06 Recorded influ virus vac, H1N1, inactive(oldterm) 12 05/08/11 Given hepatitis B adult vaccine 06/14/02 Recorded 1Result Comment: PCV 20 [facility]#[id number] 2Result Comment: Flu [facility]#[id number] 3Result Comment: [id number] 4Result Comment: [id number] 5Result Comment: [id number] 6Result Comment: [id number] 7Result Comment: [07/08/2017] [id number] 8Admin Note: [facility] 9Admin Note: [facility] 9-13 10Admin Note: Given at [facility] 11Admin Note: 03-11-12 GIVEN AT [facility] 12Admin Note: rcvd elsewhere Medications acetaminophen 325 mg oral tablet 2, tablet, By Mouth, Every 6 hours, PRN, # 100 tablet, Refills 5, Maintenance, NEEDED FOR MODERATE PAIN (VIAL), 09/14/23 15:41:00 EST, Route to Pharmacy Electronically, [facility], 160, cm, 07/07/23 15:02:00 EST, Height, 112.4, kg, 06/24/23... Start Date: 09/14/23 Status: Ordered Albuterol (Eqv-ProAir HFA) 90 mcg/inh inhalation aerosol 2 puffs, Inhalation, Every 4 hours, PRN NEEDED FOR WHEEZING OR FOR SHORTNESS OF BREATH (BULK), #8.5 Gm, 5 Refills, Maintenance, 07/25/23 11:45:00 EST, [facility], 17, INHALE 2 PUFFS BY MOUTH [...] EDT, Route to Pharmacy Electronically, [facility], 160, cm, 07/07/2315:02:00 EST, Height, 112.4, kg, 06/24/23 17:38:00... Start Date: 10/07/23 Status: Ordered cyclobenzaprine 5 mg oral tablet 1 tablet, By Mouth, 3 times a day, PRN NEEDED, SPASM (VIAL., # 90 tablet, 3 Refills, Maintenance, 08/19/23 10:07:00 EST, [facility], 160, cm, 07/07/23 15:02:00 EST, Height, 112.4, kg, 06/24/23 17:38:00 EST, Dry Weight Start Date: 08/19/23 Status: Ordered docusate sodium 100 mg oral capsule 100 mg, 1, capsule, By Mouth, 2 times a day, hold for loose stool, # 180 capsule, Refills 3, Tot. Refills 3, Maintenance, 03/13/23 16:56:00 EDT, Route to Pharmacy Electronically, [facility], Partial fill upon patient request if the prescriptio... Start Date: 03/13/23 Stop Date: 04/12/23 Status: Ordered duloxetine 20 mg oral enteric coated capsule 2 capsule = 40 mg, By Mouth, Daily at bedtime, # 60 capsule, 11 Refills, Maintenance, 06/25/21 12:00:00 EST, Capsule, [facility], Partial fill upon patient request [...] Replace Required Details, Route to Pharmacy Electronically, [facility], 160, cm, 07/07/23 15:02:00 EST, Height,... Start Date: 07/28/23 Status: Ordered furosemide 40 mg oral tablet 40 mg, 1, tablet, By Mouth, Daily, # 90 tablet, Refills 1, Tot. Refills 1, Maintenance, 03/02/23 18:12:00 EDT, Route to Pharmacy Electronically, [facility], Partial fill upon patient request if the prescription is for a schedule II opioid drug... Start Date: 03/02/23 Status: Ordered gabapentin 300 mg oral capsule 300 mg, 1, capsule, By Mouth, 3 times a day, # 90 capsule, Refills 2, Tot. Refills 2, Maintenance, 09/09/23 17:17:00 EST, Route to Pharmacy Electronically, [facility], Partial fill upon patient request if [...] mL, 11 Refills, Maintenance, 08/11/23 7:46:00 EST, [facility], 30, INSTILL 2 SPRAYS IN EACH [...] 07/01/23 14:32:00 EST, Route to Pharmacy Electronically, [facility], 160, cm, 06/26/23 11:21:00 EST, Height, 112.4, kg, 06/24/23 17:38:00 EST, Dry Weight Start Date: 07/01/23 Status: Ordered metFORMIN 500 mg oral tablet 1 tablet = 500 mg, By Mouth, 2 times a day, # 60 tablet, 5 Refills, Maintenance, 07/07/23 15:26:00 EST, Tablet, [facility], Partial fill upon patient request if the prescription is for a schedule II opioid drug., 160, cm, 07/07/23 15:02:00 EST... Start Date: 07/07/23 Stop Date: 01/03/24 Status: Ordered nicotine 21 mg/24 hr transdermal film, extended release 1 patch, Topically, Daily, # 28 patch, 3 Refills, Maintenance, 09/14/23 15:41:00 EST, [facility], 28, APPLY 1 PATCH TOPICALLY DAILY, [...] tablet, 5 Refills, Maintenance, 08/19/23 10:06:00 EST, [facility], 160, cm, 07/07/23 15:02:00 EST, Height, 112.4, kg, 06/24/23 17:38:00 EST,Dry Weight Start Date: 08/19/23 Status: Ordered rOPINIRole 0.5 mg oral tablet 1 tablet, By Mouth, 3 times a day, ^1R1,1R3,1R4., # 90 tablet, 5 Refills, Maintenance, 10/11/23 20:09:00 EDT, [facility], 160, cm, 07/07/23 15:02:00 EST, Height, 112.4, kg, 06/24/23 17:38:00 EST, Dry Weight Start Date: 10/11/23 Status: Ordered rosuvastatin 10 mg oral tablet 1 tablet, By Mouth, Daily, ^1R1., # 30 tablet, 5 Refills, Maintenance, 07/01/23 14:33:00 EST, [facility], 160, cm, 06/26/23 11:21:00 EST, Height, 112.4, kg, 06/24/23 17:38:00 EST, Dry Weight Start Date: 07/01/23 Status: Ordered Symbicort 160mcg/4.5mcg Inhaler 2, puffs, Inhalation, 2 times a day, # 10.2 Gm, Refills 11, Tot. Refills 11, Maintenance, 06/03/23 11:47:00 EST, Aerosol, Route to Pharmacy Electronically, NCPDP_[id number], [facility], 160, cm, 06/03/23 11:30:00 EST, [...] 30 tablet, 5 Refills, Maintenance, 08/11/23 11:28:00 EST,[facility], 160, cm, 07/07/23 15:02:00 EST, Height, [...] Confirmed Active Gastric banding status Confirmed Active prison current use of opiate analgesic Confirmed Active [...] Team Personnel Name: Sandra Wills NP Position: [facility] PCO Associate Professional Member Role: Primary Care Nurse Address: Address: [address] [place] [address] [place] [address]- [place] Name: Marley Alejo RN Position: S RN Member Role: Primary Care Nurse Name: Rashi Dewitt RN Position: [facility] RN Member Role: Primary Care Nurse Name: Alma Delia Fonseca PharmD Position: [facility] Associate Professional Member Role: Lifetime Consulting Provider Address: Address: [address] [facility] [place] [address]- [place] Name: Priscila Garzon RN Position: [facility] RN Member Role: Primary Care Nurse Name: Kyle Ahumada DO Position: [facility] Physician - Primary Care Member Role: PCP Address: Address: [address] [place] [address]- [place] Name: Renea Mart RN Position: [facility] RN Member Role: Primary Care Nurse Care Team Related Persons Name: FAUZIA JANSEN Address: home [address] [place] [address] Name: AURELIA SHETH Address: home [address] [place] [address] Name: BRE OSORIO Address: home [address] [place] [address]
--- OUTSIDE RECORDS SUMMARY | 2024-01-02 21:32 | XMS_ITS | Continuity of Care Document ---
Author Organization [facility] Robin Jane Nolberto lt Address [address] [place] [address]- Care Team Providers Care Theatrical Scenic Designer Name Role Phone Radha GRIDER, Fuentes Kenny Primary Care Physician [facility] 07[facility]04[facility]20 - 08/03/20 [facility] Adult [address] [place] [address]- Allergies, Adverse Reactions, Alerts Substance Reaction Severity [...] H1N1, inactive(oldterm) 8 05/08/11 Given 1Result Comment: [id number] 2Result Comment: [id number] 3Result Comment: [07/08/2017] [id number] 4Admin Note: [facility] 5Admin Note: [facility] [...] 5 Refills, Maintenance, 07/03/20 9:16:00 EST, Cream, [facility] #[id number], Partial fill upon patient request if the [...] 06/04/20 12:56:00 EST, Route to Pharmacy Electronically, [facility] #[id number], please schedule appt for further refills, 165, cm, 05/16/20 14:15:00 EDT, Hei... Start Date: 06/04/20 Status: Ordered Claritin 10 mg oral tablet 10 mg, 1, tablet, By Mouth, Daily, for 90 days, # 90 tablet, Refills 3, Tot. Refills 3, Acute 07/28/21 15:22:00 EST, 08/02/20 15:22:00 EST, Route to Pharmacy Electronically, [facility] #[id number], 165, cm, 07/31/20 14:32:00 EST, Height, 127, kg,... Start Date: 08/02/20 Stop Date: 07/28/21 Status: Ordered colchicine 0.6 mg oral tablet See Instructions, take 1 tablet by mouth once daily if needed for PSEUDOGOUT pain, # 30 tablet, Refills 5, Tot. Refills 5, Soft Stop, 01/05/20 8:41:00 EDT, Instructions Replace Required Details, Route to Pharmacy Electronically, [facility] #... Start Date: 01/05/20 Status: Ordered [...] Gm, 3 Refills, Maintenance, 06/22/20 14:58:00 EST, [facility] #[id number], 165, cm, 06/07/20 13:52:00 EST, Height, 127, kg, 02/03/20 14:39:00EDT, Dry Weight Start Date: 06/22/20 Status: Ordered Hospital Bed See Instructions, # 1 each, Refills 0, Tot. 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 Spinal Stenosis M48.061 Morbid Obesity E66.01 Venous Insuffiency of leg I87.2, 12/26/19 9:29:00 EST, Compound Start Date: 07/21/19 Status: Ordered HydrOXYzine PRn , rare use, 0 Refills, Maintenance, 04/30/20 15:04:00 EDT Start Date: 04/30/20 Status: Ordered ipratropium nasal 21 mcg/inh spray 2 sprays, Nares, Both, 2 times a day, # 30 mL, 5 Refills, Maintenance, 10/01/18 10:08:42 EST, [place], 2 sprays Nares, Both 2 times a [...] 08/02/20 16:13:00 EST, Route to Pharmacy Electronically, [facility] #[id number], D/C RX ON FILE FOR ABRAM, 165, [...] 09/29/20 14:57:00 EST, 07/31/20 14:57:00 EST, Capsule, [facility] #[id number], Partial fill upon patient request if the prescription is for a schedule II opi... Start Date: 07/31/20 Stop Date: 09/29/20 Status: Ordered methenamine hippurate 1 gm oral tablet 1 tablet = 1 Gm, By Mouth, 2 times a day, # 60 tablet, 1 Refills, Maintenance, 07/12/20 13:56:00 EST, [facility] #[id number], Partial fill upon patient request if the prescription is for a schedule II opioid drug., 165, cm, 07/11/20 15:24:00 EST,... Start Date: 07/12/20 Stop Date: 07/05/21 Status: Ordered metoprolol 25 mg oral tablet 25 mg, 1, tablet, By Mouth, 2 times a day, # 60 tablet, Refills 5, Tot. Refills 5, Maintenance, 03/22/20 16:34:00 EDT, Route to Pharmacy Electronically, [facility] #[id number], 165, cm, 02/02/2014:39:00 EDT, Height, 127, kg, [...] 0 Refills, Maintenance, 06/18/20 16:57:00 EST, Patch, [facility] #[id number], Partial fill upon patient request, 165, cm, 06/07/20 13:52:00 EST, Height, 127, kg, 02/03/20 14:39:00 EDT, Dry Weight Start Date: 06/18/20 Stop Date: 07/30/20 Status: Ordered NuLYTELY with Flavor Packs oral powder for reconstitution See Instructions, Drink 240mL every 15-20 minutes until first half is gone. Repeat 6 hours prior toprocedure., # 4,000 mL, 0 Refills, Maintenance, 06/28/20 17:09:00 EST, [facility] #[id number],Partial fill upon patient request if the prescript... Start Date: 06/28/20 Status: Ordered oxyCODONE 10 mg oral tablet 1 tablet = 10 mg, By Mouth, Every 8 hours, DX Z79.891 G89.29 M47.816 OK TO FILL LESS THAN PRESCRIBED AMOUNT, # 84 tablet, 0 Refills, Maintenance, 07/16/20 17:18:00 EST, Tablet, [facility] #[id number], 07/17/20, 165, cm, 07/11/20 15:24:00 EST, He... [...] 5 Refills, Maintenance, 04/30/20 15:13:00 EDT, Tablet, [facility] #[id number], 165, cm, 04/30/20 14:30:00 EDT, Height, 127, kg, 02/03/20 14:39:00 EDT, Dry Weight Start Date: 04/30/20 Status: Ordered rosuvastatin 10 mg oral tablet 1 tablet = 10 mg, By Mouth, Daily, # 90 tablet, 3 Refills, Maintenance, 05/03/20 16:35:00 EDT, Tablet, [facility] #[id number], d/c rx for capsules, 165, cm, 04/30/20 14:30:00 EDT, Height, 127, kg, 02/03/20 14:39:00 EDT, Dry Weight Start Date: 05/03/20 Status: Ordered Ventolin HFA 108 mcg/inh inhalation aerosol with adapter 2 puffs, Inhalation, Every 4 hours, PRN Wheezing/Shortness of Breath, # 1 each, 11 Refills, Soft Stop, 01/19/20 11:46:00 EDT, [facility] #[id number], 165, cm, 01/16/20 6:17:00 EDT, Height, 128.1, kg, 01/16/20 6:17:00 EDT, Dry Weight Start Date: 01/19/20 Status: Ordered warfarin 5 mg oral tablet 1 tablet = 5 mg, By Mouth, Daily, dosing subject to change pending inr lab values, # 30 tablet, 5 Refills, Maintenance, 02/15/20 13:21:00 EDT, Tablet, [facility] #[id number], 165, cm, 02/03/20 14:39:00 EDT, Height, 127, [...]
--- OUTSIDE RECORDS SUMMARY | 2024-01-02 21:32 | XMS_ITS | Continuity of Care Document ---
Author Organization [facility] Robin Jane Nolberto lt Address [address] [place] [address]- Care Team Providers Care Flower Grader Name Role Phone Krishan GRIDER, Eulogio Molina Primary Care Physician [facility] 07[facility]22 - 08/29/22 [facility] Robin Jane Adult [address] [place] [address]- Allergies, Adverse Reactions, Alerts Substance Reaction Severity [...] vaccine, inactivated 05/10/07 Jarrett rded SARS-CoV-2 mRNA ([id number]) vax 08/30/21 Recorded SARS-CoV-2 (COVID-19) mRNA BNT-162b2 vac 01/02/21 Recorded SARS-CoV-2 (COVID-19) mRNA BNT-162b2 vac 12/02/20 Recorded Fluvirin (oldterm) 8 03/22/15 Given Fluzone Preservative-Free (oldterm) 9 03/12/12 Giv en pneumococcal 23-valent vaccine 10/08/11 Given tetanus/diphtheria/pertussis, acel(Tdap) 09/08/11 Given tetanus/diphtheria/pertussis, acel(Tdap) 12/17/06 Recorded influ virus vac, H1N1, inactive(oldterm) 10 05/08/11 Given hepatitis B adult vaccine 06/14/02 Recorded 1Result Comment: [id number] 2Result Comment: [id number] 3Result Comment: [id number] 4Result Comment: [id number] 5Result Comment: [07/08/2017] [id number] 6Admin Note: [facility] 7Admin Note: [facility] [...] 4 Refills, Maintenance, 04/28/22 13:11:00 EDT, [facility], 17, INHALE 2 PUFFS [...] 08/18/22 9:30:00 EST, [facility], cm, 07/18/22 11:39:00 EST, Height, 98.8, kg, 07/17/22 8:58... Start Date: 08/18/22 Status: Ordered colchicine 0.6 mg oral tablet 0.6 mg, 1, tablet, By Mouth, Daily, # 30 tablet, Refills 11, Tot. Refills 11, Maintenance, 227:00:00 EDT, [facility] fill upon patient request if the prescription is for a schedule II opioid dr... Start Date: 10/30/21 Status: Ordered docusate sodium 100 mg oral capsule 100 mg, 1, capsule, By Mouth, 2 times a day, hold for loose stool, # 60 capsule, Refills 0, Tot. Refills 0, Maintenance, 01/11/22 7:25:00 EDT, Route to Pharmacy Electronically, [facility], Partial fill upon patient request if the prescri... Start Date: 01/11/22 Stop Date: 02/10/22 Status: Ordered duloxetine 20 mg oral enteric coated capsule 2 capsule = 40 mg, By Mouth, Daily at bedtime, # 60 capsule, 11 Refills, Maintenance, 06/25/21 12:00:00 EST, Capsule, [facility], Partial fill upon patient [...] 07/17/22 17:07:00 EST, Route to Pharmacy Electronically, [facility], 160, cm, 07/17/22 12:03:00 [...] 5 Refills, Maintenance, 07/29/22 6:50:00 EST, Tablet, [facility], Partial fill upon patient [...] tablet, 5 Refills, Maintenance, 07/24/22 23:41:00 EST, [facility], 160, cm, 07/18/22 11:39:00 EST, Height, [...] Gm, 5 Refills, Maintenance, 07/17/22 11:09:00 EST, [facility], 160, cm, 07/17/22 8:49:00 EST, Height, 98.8, kg, 07/17/22 8:58:00 EST, Dry Weight Start Date: 07/17/22 Status: Ordered Symbicort 80mcg/4.5mcg Inhaler See Instructions, INHALE 2 PUFFS BY MOUTH TWICE A DAY RINSE MOUTH AND THROAT AFTER USE, # 10.2 Gm, Refills 5, Maintenance, 07/30/22 21:16:00 EST, Instructions Replace Required Details, Route to Pharmacy Electronically, [id number]... Start Date: 07/30/22 Status: Ordered warfarin 1 mg oral tablet See Instructions, Take 1-10 tabs daily as directed by NEOS., # 150 tablet, 0 Refills, Maintenance, 07/18/22 8:55:00 EST, Tablet, [facility], Partial fill upon patient [...] Team Personnel Name: Sandra Wills NP Position: [facility] Associate Professional Member Role: Primary Care Nurse Address: Address: [address] [place] [address] [place] [address]- Name: Marley Alejo RN Position: [facility] RN Member Role: Primary Care Nurse Name: Eulogio Nickerson MD Position: [facility] Primary Care Physician Member Role: PCP Address: Address: [address] [place] [address]- [place] Name: Alma Delia Fonseca PharmD Position: [facility] Associate Professional Member Role: Lifetime Consulting Provider Address: Address: [address] [facility] [place] [address]- [place] Name: Yolis Mattson RN Position: [facility] RN Member Role: Primary Care Nurse Name: Priscila Garzon RN Position: [facility] RN Member Role: Primary Care Nurse Name: Renea Mart RN Position: [facility] RN Member Role: Primary Care Nurse Care Team Related Persons Name: FAUZIA JANSEN Address: home [address] [place] [address] Name: AURELIA SHETH Address: home [address] [place] [address] Name: BRE OSORIO Address: home [address] [place] [address]
--- OUTSIDE RECORDS SUMMARY | 2024-01-02 21:32 | XMS_ITS | Continuity of Care Document ---
Author Organization [facility] Wayne Nolberto lt Address [address] [place] [address]- Care Team Providers Care Chicken Hanger Name Role Phone Krishan GRIDER, Eulogio Molina Primary Care Physician [facility] Date(s): 10/07/22 - 11/06/22 [facility] Adult [address] [place] [address]- Allergies, Adverse Reactions, Alerts Substance Reaction Severity [...] vaccine, inactivated 05/10/07 Jarrett rded SARS-CoV-2 mRNA ([id number]) vax 08/30/21 Recorded SARS-CoV-2 (COVID-19) mRNA BNT-162b2 vac 01/02/21 Recorded SARS-CoV-2 (COVID-19) mRNA BNT-162b2 vac 12/02/20 Recorded Fluvirin (oldterm) 8 03/22/15 Given Fluzone Preservative-Free (oldterm) 9 03/12/12 Giv en pneumococcal 23-valent vaccine 10/08/11 Given tetanus/diphtheria/pertussis, acel(Tdap) 09/08/11 Given tetanus/diphtheria/pertussis, acel(Tdap) 12/17/06 Recorded influ virus vac, H1N1, inactive(oldterm) 10 05/08/11 Given hepatitis B adult vaccine 06/14/02 Recorded 1Result Comment: [id number] 2Result Comment: [id number] 3Result Comment: [id number] 4Result Comment: [id number] 5Result Comment: [07/08/2017] [id number] 6Admin Note: [facility] 7Admin Note: [facility] [...] Gm, 4 Refills, Maintenance, 09/08/22 14:55:00 EST, [facility], 30, INHALE 2 PUFFS BY MOUTH EVERY FOUR HOURS NEEDED FOR WHEEZING... Start Date: 09/08/22 Status: Ordered cloNIDine 0.1 mg oral tablet 1, tablet, By Mouth, 2 times a day, PRN, # 56 tablet, Refills 2, Maintenance, NEEDED FOR FOR ANXIETY (VIAL) ^VIAL, 10/03/22 11:23:00 EST, Route to Pharmacy Electronically, [facility], 160,cm, 09/09/22 14:31:00 EST, Height, 98.8, kg, 07/17/... Start Date: 10/03/22 Status: Ordered colchicine 0.6 mg oral tablet 1, tablet, By Mouth, Daily, ^1R1., # 30 tablet, Refills 11, Maintenance, 09/10/22 5:31:00 EST, [facility], [facility], cm, 09/09/22 14:31:00 EST, Height, 98.8, kg, 07/17/22 8:58:00 EST, Dry Weight Start Date: 09/10/22 Status: Ordered docusate sodium 100 mg oral capsule 100 mg, 1, capsule, By Mouth, 2 times a day, hold for loose stool, # 60 capsule, Refills 0, Tot. Refills 0, Maintenance, 01/11/22 7:25:00 EDT, Route to Pharmacy Electronically, [facility], Partial fill upon patient request if the prescri... Start Date: 01/11/22 Stop Date: 02/10/22 Status: Ordered duloxetine 20 mg oral enteric coated capsule 2 capsule = 40 mg, By Mouth, Daily at bedtime, # 60 capsule, 11 Refills, Maintenance, 06/25/21 12:00:00 EST, [facility]apsule, [facility], Partial fill upon patient [...] Acute 03/16/23 6:08:00 EDT, 10/14/22 6:08:00 EDT, [place], [id number], Partial fill upon patient request if the [...] 11/06/22 6:52:00 EDT, Route to Pharmacy Electronically, [facility], 160, cm, 10/13/22 16:25:00 EDT, Height, [...] 5 Refills, Maintenance, 07/29/22 6:50:00 EST, Tablet, [facility], Partial fill upon patient request if the prescription is for a schedule II opioid drug., 160, cm, 07/18/22 11:39:00 EST,... Start Date: 07/29/22 Status: Ordered penicillin V potassium 250 mg oral tablet 1 tablet = 250 mg, By Mouth, 2 times a day, CELLULITIS PROPHYLAXIS, # 60 tablet, 5 Refills, Maintenance, 11/06/22 17:25:00 EDT, Tablet, [facility], Partial fill upon patient request if the prescription is for a schedule II opioid drug., 160, c... Start Date: 11/06/22 Stop Date: 05/05/23 Status: Ordered predniSONE 10 mg oral tablet 1 tablet, By Mouth, Daily, ^1R1., # 30 tablet, 2 Refills, Maintenance, 11/05/22 7:06:00 EDT, [facility], 160, cm, 10/13/22 16:25:00 EDT, Height, 98.8, kg, 07/17/22 8:58:00 EST, Dry Weight Start Date: 11/05/22 Status: Ordered rOPINIRole 0.5 mg oral tablet See Instructions, TAKE 1 TABLET BY MOUTH THREE TIMES DAILY^1R1,1R3,1R4, # 90 tablet, 5 Refills, Maintenance, 07/24/22 23:41:00 EST, [facility], 160, cm, 07/18/22 11:39:00 EST, Height, 98.8, kg, 07/17/22 8:58:00 EST, Dry Weight Start Date: 07/24/22 Status: Ordered rosuvastatin 10 mg oral tablet 1 tablet, By Mouth, Daily, ^1R1., # 30 tablet, 5 Refills, Maintenance, 09/10/22 5:31:00 EST, [facility], 160, cm, 09/09/22 14:31:00 EST, Height, 98.8, kg, 07/17/22 8:58:00 EST, Dry Weight Start Date: 09/10/22 Status: Ordered Symbicort 80mcg/4.5mcg Inhaler See Instructions, INHALE 2 PUFFS BY MOUTH TWICE A DAY RINSE MOUTH AND THROAT AFTER USE, # 10.2 Gm, Refills 5, Maintenance, 07/30/22 21:16:00 EST, Instructions Replace Required Details, [id number]... 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 Confirmed Active [...] Type Response Smoking Status Current every day berenicejennifer entered on: 05/04/18 Sex Female Patient Care team information Care Team Personnel Name: Sandra Wills NP Position: [facility] Associate Professional Member Role: Primary Care Nurse Address: Address: [address] [place] [address]- [place] Name: Marley Alejo RN Position: [facility] RN Member Role: Primary Care Nurse Name: Eulogio Nickerson MD Position: [facility] Primary Care Physician Member Role: PCP Address: Address: [address] [place] [address]- [place] Name: Alma Delia Fonseca PharmD Position: [facility] Associate Professional Member Role: Lifetime Consulting Provider Address: Address: [address] [facility] [place] [address]- [place] Name: Yolis Mattson RN Position: [facility] RN Member Role: Primary Care Nurse Name: Priscila Garzon RN Position: [facility] RN Member Role: Primary Care Nurse Name: Renea Mart RN Position: [facility] RN Member Role: Primary Care Nurse Care Team Related Persons Name: FAUZIA JANSEN Address: [address] [address] Name: AURELIA SHETH Address: [address] [place] [address] Name: BRE OSORIO Address: [address] [place] [address]
--- OUTSIDE RECORDS SUMMARY | 2024-01-02 21:33 | XMS_ITS | Continuity of Care Document ---
Author Organization [facility] Nolberto Address [address] [place] [address]- Care Team Providers Care Auto Haulaway Driver Name Role Phone Krishan GRIDER, Eulogio Molina Primary Care Physician [facility] Date[facility]): 12/17[facility]21 - 01/16/22 [facility] Adult [address] [place] [address]- Allergies, Adverse Reactions, Alerts Substance Reaction Severity Status Adhesive Bandage Active Dust copd exac/sinus congestion A ctive Immunizations Given and Recorded Vaccine Date Status Refusal Reason SARS-CoV-2 mRNA ([id number]) vax 08/30/21 Recorded influenza virus vaccine, inactivated [...] influenza virus vaccine, inactivated 6 06/07/13 Gi octaivo influenza virus vaccine, inactivated 04/09/11 Jarrett rded [...] B adult vaccine 06/14/02 Recorded 1Result Comment: [id number] 2Result Comment: [id number] 3Result Comment: [id number] 4Result Comment: [07/08/2017] [id number] 5Admin Note: [facility] 6Admin Note: [facility] [...] 8.5 Gm, 5 Refills, 05/29/21 17:13:00 EDT, [id number], 17, INHALE 2 PUFFS BY MOUTH EVERY [...] 0 Refills, Maintenance, 01/11/22 7:25:00 EDT, Capsule, [facility], Partial fill upon patient request if the prescription is for a schedule II opioid drug., 159, cm, 01/11/22 6:35:0... Start Date: 01/11/22 Stop Date: 02/10/22 Status: Ordered cloNIDine 0.1 mg oral tablet See Instructions, TAKE 1 TABLET BY MOUTH TWICE A DAY NEEDED FOR FOR ANXIETY, # 60 tablet, Refills 0, Instructions Replace Required Details, Route to Pharmacy Electronically, [facility], 165, cm, 01/06/22 14:35:00 EDT, Height, 102.1, kg, ... Start Date: 01/09/22 Status: Ordered colchicine 0.6 mg oral tablet 0.6 mg, 1, tablet, By Mouth, Daily, # 30 tablet, Refills 11, Tot. Refills 11, Maintenance, 227:00:00 EDT, Route to Pharmacy Electronically, [facility], Partial fill upon [...] EDT, Route to Pharmacy Electronically, [facility], Partial fill upon patient request if the prescri... Start Date: 01/11/22 Stop Date: 02/10/22 Status: Ordered duloxetine 20 mg oral enteric coated capsule 2 capsule = 40 mg, By Mouth, Daily at bedtime, # 60 capsule, 11 Refills, Maintenance, 06/25/21 12:00:00 EST, Capsule, [facility], Partial fill upon [...] 01/18/22 7:26:00 EDT, 01/11/22 7:26:00 EDT, Injection, [facility], Partial fill upon patient request... [...] Replace Required Details, [facility], [facility], 165, cm, 06/25/21 11:35:00 EST, Height, [...] 12/11/21 13:41:00 EDT, Route to Pharmacy Electronically, [facility], Partial fill upon patient requestif the [...] 03/05/22 16:36:00 EDT, 12/03/21 16:35:00 EDT, [place], [facility] #[id number], Partial fill uponpatient request if the prescription [...] CELLULITIS PROPHYLAXIS., # 60 tablet, 6 Refills, [facility], 165, cm, 11/08/21 10:02:00 EDT, Height, 127, kg, 02/03/20 14:39:00 EDT, Dry Weight Start Date: 11/15/21 Status: Ordered rOPINIRole 0.5 mg oral tablet 1 tablet, By Mouth, 3 times a day, # 90 tablet, 5 Refills, 11/08/21 9:01:00 EDT, [facility], 165, cm, 11/04/21 8:42:00 EDT, Height, 127, kg, 02/03/20 14:39:00 EDT, Dry Weight Start Date: 11/08/21 Status: Ordered rosuvastatin 10 mg oral tablet See Instructions, TAKE 1 TABLET BY MOUTH DAILY, # 90 tablet, 1 Refills, Maintenance, 10/18/21 21:30:00 EDT, [facility], 165, cm, 09/04/21 14:01:00 EST, [...] 01/18/22 7:28:00 EDT, 01/11/22 7:28:00 EDT, Tablet, [facility], Partial fill upon patient request [...]
--- OUTSIDE RECORDS SUMMARY | 2024-01-02 21:33 | XMS_ITS | Continuity of Care Document ---
Author Organization [facility] Robin Jane Nolberto lt Address [address] [place] [address]- Care Team Providers Care Endless Belt Finisher Name Role Phone Radha GRIDER, Fuentes Kenny Primary Care Physician [phone] [facility] 08[facility]20 - 09/30/20 [facility] Adult [address] [place] [address]- Allergies, Adverse Reactions, Alerts Substance Reaction Severity [...] H1N1, inactive(oldterm) 8 05/08/11 Given 1Result Comment: [id number] 2Result Comment: [id number] 3Result Comment: [07/08/2017] 79221-504-86 4Admin Note: [facility] 5Admin Note: [facility] [...] 5 Refills, Maintenance, 07/03/20 9:16:00 EST, Cream, [facility][id number], Partial fill upon patient request if the [...] 06/04/20 12:56:00 EST, Route to Pharmacy Electronically, [facility] #[id number], please schedule appt for further refills, 165, cm, 05/16/20 14:15:00 EDT, Hei... Start Date: 06/04/20 Status: Ordered Claritin 10 mg oral tablet 10 mg, 1, tablet, By Mouth, Daily, for 90 days, # 90 tablet, Refills 3, Tot. Refills 3, Acute 07/28/21 15:22:00 EST, 08/02/20 15:22:00 EST, Route to Pharmacy Electronically, [facility] #[id number], 165, cm, 07/31/20 14:32:00 EST, Height, 127, kg,... Start Date: 08/02/20 Stop Date: 07/28/21 Status: Ordered colchicine 0.6 mg oral tablet See Instructions, take 1 tablet by mouth once daily if needed for PSEUDOGOUT pain, # 30 tablet, Refills 5, Tot. Refills 5, Soft Stop, 01/05/20 8:41:00 EDT, Instructions Replace Required Details, Route to Pharmacy Electronically, [facility] #... Start Date: 01/05/20 Status: Ordered Disposable [...] Gm, 3 Refills, Maintenance, 06/22/20 14:58:00 EST, [facility] #[id number], 165, cm, 06/07/20 13:52:00 EST, Height, 127, [...] mL, 5 Refills, Maintenance, 10/01/18 10:08:42 EST, [place], 2 sprays Nares, Both 2 times a [...] 08/02/20 16:13:00 EST, Route to Pharmacy Electronically, [facility] #[id number], D/C RX ON FILE FOR ABRAM, 165, [...] tablet, 1 Refills, Maintenance, 07/12/20 13:56:00 EST, [facility] #[id number], Partial fill upon patient request if the prescription is for a schedule II opioid drug., 165, cm, 07/11/20 15:24:00 EST,... Start Date: 07/12/20 Stop Date: 07/05/21 Status: Ordered metoprolol 25 mg oral tablet 25 mg, 1, tablet, By Mouth, 2 times a day, # 60 tablet, Refills 5, Tot. Refills 5, Maintenance, 09/22/20 13:59:00 EST, Route to Pharmacy Electronically, [facility] #[id number], 165, cm, 07/31/2113:32:00 EST, Height, 127, kg, [...] 0 Refills, Maintenance, 06/18/20 16:57:00 EST, Patch, [facility] #[id number], Partial fill upon patient request, 165, cm, 06/07/20 13:52:00 EST, Height, 127, kg, 02/03/20 14:39:00 EDT, Dry Weight Start Date: 06/18/20 Stop Date: 07/30/20 Status: Ordered NuLYTELY with Flavor Packs oral powder for reconstitution See Instructions, Drink 240mL every 15-20 minutes until first half is gone. Repeat 6 hours prior toprocedure., # 4,000 mL, 0 Refills, Maintenance, 06/28/20 17:09:00 EST, [facility] #[id number],Partial fill upon patient request if the prescript... Start Date: 06/28/20 Status: Ordered oxyCODONE 10 mg oral tablet 1 tablet = 10 mg, By Mouth, Every 8 hours, DX Z79.891 G89.29 M47.816 OK TO FILL LESS THAN PRESCRIBED AMOUNT, # 84 tablet, 0 Refills, Maintenance, 09/10/20 17:26:00 EST, Tablet, [facility] #[id number], 09/11/20, 165, cm, 07/31/20 14:32:00 EST, He... [...] 5 Refills, Maintenance, 04/30/20 15:13:00 EDT, Tablet, [facility] #[id number], 165, cm, 04/30/20 14:30:00 EDT, Height, 127, kg, 02/03/20 14:39:00 EDT, Dry Weight Start Date: 04/30/20 Status: Ordered rosuvastatin 10 mg oral tablet 1 tablet = 10 mg, By Mouth, Daily, # 90 tablet, 3 Refills, Maintenance, 05/03/20 16:35:00 EDT, Tablet, [facility] #[id number], d/c rx for capsules, 165, cm, 04/30/20 14:30:00 EDT, Height, 127, kg, 02/03/20 14:39:00 EDT, Dry Weight Start Date: 05/03/20 Status: Ordered Ventolin HFA 108 mcg/inh inhalation aerosol with adapter 2 puffs, Inhalation, Every 4 hours, PRN Wheezing/Shortness of Breath, # 1 each, 11 Refills, Soft Stop, 01/19/20 11:46:00 EDT, [facility] #[id number], 165, cm, 01/16/20 6:17:00 EDT, Height, 128.1, kg, 01/16/20 6:17:00 EDT, Dry Weight Start Date: 01/19/20 Status: Ordered warfarin 5 mg oral tablet 1 tablet = 5 mg, By Mouth, Daily, dosing subject to change pending inr lab values, # 30 tablet, 11 Refills, Maintenance, 08/31/20 15:36:00 EST, Tablet, [facility] #[id number], 165, cm, 07/31/20 14:32:00 EST, Height, 127, [...] Active Gastric banding status(Confirmed) Active 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
--- OUTSIDE RECORDS SUMMARY | 2024-01-02 21:33 | XMS_ITS | Continuity of Care Document ---
Author Organization [facility] Nolberto Address [address] [place] [address]- Care Team Providers Care Textile Cutting Machine Operator Name Role Phone Krishan GRIDER, Eulogio Molina Primary Care Physician [facility]counter [facility] Date(s): 12/02/21 - 01/01/22 [facility] Adult [address] [place] [address]- Allergies, Adverse Reactions, Alerts Substance Reaction Severity Status Adhesive Bandage Active Dust copd exac/sinus congestion A ctive Immunizations Given and Recorded Vaccine Date Status Refusal Reason SARS-CoV-2 mRNA ([id number]) vax 08/30/21 Recorded influenza virus vaccine, inactivated [...] B adult vaccine 06/14/02 Recorded 1Result Comment: [id number] 2Result Comment: [id number] 3Result Comment: [id number] 4Result Comment: [07/08/2017] [id number] 5Admin Note: [facility] 6Admin Note: [facility] [...] 8.5 Gm, 5 Refills, 05/29/21 17:13:00 EDT, [id number], 17, INHALE 2 PUFFS BY MOUTH EVERY 4 HOURS NEEDED FOR WHEEZING OR SHORTNE... Start Date: 05/29/21 Status: Ordered calcipotriene 0.005% topical cream 1 application, Topically, 2 times a day, # 60 Gm, 11 Refills, Maintenance, 11/15/21 11:54:00 EDT, Cream, [facility], Partial fill upon patient request if the prescription is for a schedule IIopioid drug., 1 application Topically 2 times a day... Start Date: 11/15/21 Status: Ordered colchicine 0.6 mg oral tablet 0.6 mg, 1, tablet, By Mouth, Daily, # 30 tablet, Refills 11, Tot. Refills 11, Maintenance, :00:00 EDT, Route to Pharmacy Electronically, [facility], Partial fill upon patient request if the prescription is for a schedule II opioid dr... Start Date: 10/30/21 Status: Ordered digoxin 0.125 mg oral tablet 125 mcg, 1, tablet, By Mouth, Daily, # 90 tablet, Refills 1, Tot. Refills 1, Maintenance, 12/11/21 13:41:00 EDT, Route to Pharmacy Electronically, [facility], Partial fill upon patient request if the prescription is for a schedule II opioid dr... Start Date: 12/11/21 Status: Ordered duloxetine 20 mg oral enteric coated capsule 2 capsule = 40 mg, By Mouth, Daily at bedtime, # 60 capsule, 11 Refills, Maintenance, 06/25/21 12:00:00 EST, Capsule, [facility], Partial fill upon patient [...] Replace Required Details, Route to Pharmacy Electronically, [facility], 165, cm, 06/25/21 11:35:00 EST, Height, 127, kg, 02/03/20 14:39:00 EDT, Dry Weight Start Date: 08/05/21 Status: Ordered metoprolol 100 mg oral tablet, extended release 100 mg, 1, tablet, By Mouth, Daily, # 90 tablet, Refills 1, Tot. Refills 1, Maintenance, 12/11/21 13:41:00 EDT, Route to Pharmacy Electronically, [facility], Partial fill upon patient requestif the prescription is for a schedule II opioid keanu... Start Date: 12/11/21 Status: Ordered nicotine 4 mg oral transmucosal gum 1 each = 4 mg, Chew, Every 2 hours, PRN as needed for smoking cessation, # 160 each, 2 Refills, Acute 03/05/22 16:36:00 EDT, 12/03/21 16:35:00 EDT, [facility] #[id number], Partial fill uponpatient request if the prescription is for a schedu... Start Date: 12/03/21 Stop Date: 03/05/22 Status: Ordered NuLYTELY with Flavor Packs oral powder for reconstitution 240 mL, By Mouth, Every 10 minutes, # 1 each, 0 Refills, Maintenance, 10/25/21 10:39:00 EDT, REC Powder, [facility], Partial fill upon patient request if the prescription is for a schedule IIopioid drug., 240 mL By Mouth Every 10 minutes, 165... Start Date: 10/25/21 Status: Ordered penicillin V potassium 250 mg oral tablet 1 tablet, By Mouth, 2 times a day, CELLULITIS PROPHYLAXIS., # 60 tablet, 6 Refills, [facility], 165, cm, 11/08/21 10:02:00 EDT, Height, 127, kg, 02/03/20 14:39:00 EDT, Dry Weight Start Date: 11/15/21 Status: Ordered rOPINIRole 0.5 mg oral tablet 1 tablet, By Mouth, 3 times a day, # 90 tablet, 5 Refills, 11/08/21 9:01:00 EDT, [facility], 165, cm, 11/04/21 8:42:00 EDT, Height, 127, kg, 02/03/20 14:39:00 EDT, Dry Weight Start Date: 11/08/21 Status: Ordered rosuvastatin 10 mg oral tablet See Instructions, TAKE 1 TABLET BY MOUTH DAILY, # 90 tablet, 1 Refills, Maintenance, 10/18/21 21:30:00 EDT, [facility], 165, cm, 09/04/21 14:01:00 EST, [...] 6 Refills, Maintenance, 12/13/21 13:47:00 EDT, Tablet, [facility], Dosing Subject To Change per INR Result per MD,165, cm, 12/06/21 14:01:00 EDT, Height, 102.1, kg,... Start Date: 12/13/21 Status: Ordered warfarin 5 mg oral tablet See Instructions, Dosing Subject To Change Per INR Result per MD, # 30 each, 6 Refills, Maintenance, 12/13/21 14:01:00 EDT, Tablet, [facility], PLEASE GIVE BOTH 5MG TABLETS AND [...]
--- OUTSIDE RECORDS SUMMARY | 2024-01-02 21:33 | XMS_ITS | Continuity of Care Document ---
Author Organization [facility] Nolberto lt Address [address] [place] [address]- Care Team Providers Care Mold Loft Worker Name Role Phone Fuentes Garcia MD Primary Care Physician [phone] [facility]counter [facility] Date[facility]s): 12/12/20 - 01/11/21 [facility] Adult [address] [place] [address]- Allergies, Adverse Reactions, Alerts Substance Reaction Severity [...] B adult vaccine 06/14/02 Recorded 1Result Comment: [id number] 2Result Comment: [id number] 3Result Comment: [07/08/2017] [id number] 4Admin Note: [facility] 5Admin Note: [facility] [...] 11 Refills, Maintenance, 10/31/20 14:14:00 EDT, Cream, [facility] #[id number], Partial fill upon patient request if the [...] 11/27/20 10:09:00 EDT, Route to Pharmacy Electronically, [facility] #[id number], please schedule appt for further refills, 165, cm, 11/19/20 11:32:00 EDT, Hei... Start Date: 11/27/20 Status: Ordered Claritin 10 mg oral tablet 10 mg, 1, tablet, By Mouth, Daily, for 90 days, # 90 tablet, Refills 3, Tot. Refills 3, Acute 07/28/21 15:22:00 EST, 08/02/20 15:22:00 EST, Route to Pharmacy Electronically, [facility][id number], 165, cm, 07/31/20 14:32:00 EST, Height, 127, [...] PMR, history of smoking fax to : [phone], 04... Start Date: 10/26/20 Status: Ordered Disposable [...] Gm, 3 Refills, Maintenance, 06/22/20 14:58:00 EST, [facility] #[id number], 165, cm, 06/07/20 13:52:00 EST, Height, 127, [...] mL, 5 Refills, Maintenance, 10/01/18 10:08:42 EST, [place], 2 sprays Nares, Both 2 times a [...] 08/02/20 16:13:00 EST, Route to Pharmacy Electronically, [facility] #[id number], D/C RX ON FILE FOR CLARITAN, 165, [...] tablet, 1 Refills, Maintenance, 07/12/20 13:56:00 EST, [facility] #[id number], Partial fill upon patient request if the prescription is for a schedule II opioid drug., 165, cm, 07/11/20 15:24:00 EST,... Start Date: 07/12/20 Stop Date: 07/05/21 Status: Ordered metoprolol 25 mg oral tablet 25 mg, 1, tablet, By Mouth, 2 times a day, # 60 tablet, Refills 5, Tot. Refills 5, Maintenance, 09/22/20 13:59:00 EST, Route to Pharmacy Electronically, [facility] #[id number], 165, cm, 07/31/2113:32:00 EST, Height, 127, kg, 02/03/20 14:39:00 ED... Start Date: 09/22/20 Status: Ordered Mitigare 0.6 mg oral capsule 1 capsule, By Mouth, Daily, # 30 capsule, 11 Refills, Maintenance, 12/31/20 16:51:00 EDT, [facility] #[id number], 165, cm, 11/19/20 11:32:00 EDT, Height, 127, [...] 0 Refills, Maintenance, 06/18/20 16:57:00 EST, Patch, [facility] #[id number], Partial fill upon patient request, 165, cm, 06/07/20 13:52:00 EST, Height, 127, kg, 02/03/20 14:39:00 EDT, Dry Weight Start Date: 06/18/20 Stop Date: 07/30/20 Status: Ordered NuLYTELY with Flavor Packs oral powder for reconstitution See Instructions, Drink 240mL every 15-20 minutes until first half is gone. Repeat 6 hours prior toprocedure., # 4,000 mL, 0 Refills, Maintenance, 06/28/20 17:09:00 EST, [facility] #[id number],Partial fill upon patient request if the prescript... Start Date: 06/28/20 Status: Ordered oxyCODONE 10 mg oral tablet 1 tablet = 10 mg, By Mouth, Every 8 hours, DX Z79.891 G89.29 M47.816 OK TO FILL LESS THAN PRESCRIBED AMOUNT, # 84 tablet, 0 Refills, Maintenance, 12/31/20 16:45:00 EDT, Tablet, [facility] #[id number], 01/01/21, 165, cm, 11/19/20 11:32:00 EDT, He... Start Date: 12/31/20 Stop Date: 01/28/21 Status: Ordered penicillin V potassium 250 mg oral tablet 1 tablet = 250 mg, By Mouth, 2 times a day, Cellulitis prophylaxis, # 60 tablet, 11 Refills, Maintenance, 10/30/20 12:09:00 EDT, [facility] #[id number], 165, cm, 10/19/20 8:59:00 EDT, Height, 127, kg, 02/03/20 14:39:00 EDT, Dry Weight Start Date: 10/30/20 Status: Ordered predniSONE 5 mg oral tablet 1 tablet = 5 mg, By Mouth, Daily, # 30 tablet, 0 Refills, Maintenance, 01/11/21 14:20:00 EDT, Tablet, [facility] #[id number], Partial fill upon patient request if the [...] 5 Refills, Maintenance, 04/30/20 15:13:00 EDT, Tablet, [facility] #[id number], 165, cm, 04/30/20 14:30:00 EDT, Height, 127, kg, 02/03/20 14:39:00 EDT, Dry Weight Start Date: 04/30/20 Status: Ordered rosuvastatin 10 mg oral tablet 1 tablet = 10 mg, By Mouth, Daily, # 90 tablet, 3 Refills, Maintenance, 05/03/20 16:35:00 EDT, Tablet, [facility] #[id number], d/c rx for capsules, 165, cm, 04/30/20 14:30:00 EDT, Height, 127, kg, 02/03/20 14:39:00 EDT, Dry Weight Start Date: 05/03/20 Status: Ordered Ventolin HFA 108 mcg/inh inhalation aerosol with adapter 2 puffs, Inhalation, Every 4 hours, PRN Wheezing/Shortness of Breath, # 1 each, 5 Refills, Soft Stop, 11/08/20 8:46:00 EDT, [facility] #[id number], 165, cm, 10/19/20 8:59:00 EDT, Height, 127, kg, 02/03/20 14:39:00 EDT, Dry Weight Start Date: 11/08/20 Status: Ordered warfarin 5 mg oral tablet 1 tablet = 5 mg, By Mouth, Daily, dosing subject to change pending inr lab values, # 30 tablet, 11 Refills, Maintenance, 08/31/20 15:36:00 EST, Tablet, [facility] #[id number], 165, cm, 07/31/20 14:32:00 EST, Height, 127, [...]
--- OUTSIDE RECORDS SUMMARY | 2024-01-02 21:33 | XMS_ITS | Continuity of Care Document ---
Author Organization [facility] Nolberto lt Address [address] [place] [address]- Care Team Providers Care Car Attendant Name Role Phone Krishan GRIDER, Eulogio Molina Primary Care Physician [phone] Encounter [facility] Date(s): 11/04/22 - 12/04/22 [facility] Adult [address] [place] [address]- Allergies, Adverse Reactions, Alerts Substance Reaction Severity [...] vaccine, inactivated 05/10/07 Jarrett rded SARS-CoV-2 mRNA (kgzvvix-vpgy-mqaqa) vax 08/30/21 Recorded SARS-CoV-2 (COVID-19) mRNA BNT-162b2 vac 01/02/21 Recorded SARS-CoV-2 (COVID-19) mRNA BNT-162b2 vac 12/02/20 Recorded Fluvirin (oldterm) 8 03/22/15 Given Fluzone Preservative-Free (oldterm) 9 03/12/12 Giv en pneumococcal 23-valent vaccine 10/08/11 Given tetanus/diphtheria/pertussis, acel(Tdap) 09/08/11 Given tetanus/diphtheria/pertussis, acel(Tdap) 12/17/06 Recorded influ virus vac, H1N1, inactive(oldterm) 10 05/08/11 Given hepatitis B adult vaccine 06/14/02 Recorded 1Result Comment: [id number] 2Result Comment: [id number] 3Result Comment: [id number] 4Result Comment: [id number] 5Result Comment: [07/08/2017] [id number] 6Admin Note: [facility] 7Admin Note: [facility] [...] Gm, 4 Refills, Maintenance, 09/08/22 14:55:00 EST, [facility], 30, INHALE 2 PUFFS BY MOUTH EVERY FOUR HOURS NEEDED FOR WHEEZING... Start Date: 09/08/22 Status: Ordered cloNIDine 0.1 mg oral tablet 1, tablet, By Mouth, 2 times a day, PRN, # 56 tablet, Refills 2, Maintenance, NEEDED FOR FOR ANXIETY (VIAL) ^VIAL, 10/03/22 11:23:00 EST, Route to Pharmacy Electronically, [facility], 160,cm, 09/09/22 14:31:00 EST, Height, 98.8, kg, 07/17/... Start Date: 10/03/22 Status: Ordered colchicine 0.6 mg oral tablet 1, tablet, By Mouth, Daily, ^1R1., # 30 tablet, Refills 11, Maintenance, 09/10/22 5:31:00 EST, [facility], 160, cm, 09/09/22 14:31:00 EST, Height, 98.8, kg, 07/17/22 8:58:00 EST, Dry Weight Start Date: 09/10/22 Status: Ordered docusate sodium 100 mg oral capsule 100 mg, 1, capsule, By Mouth, 2 times a day, hold for loose stool, # 60 capsule, Refills 0, Tot. Refills 0, Maintenance, 01/11/22 7:25:00 EDT, Route to Pharmacy Electronically, [facility], Partial fill upon patient request if the prescri... Start Date: 01/11/22 Stop Date: 02/10/22 Status: Ordered duloxetine 20 mg oral enteric coated capsule 2 capsule = 40 mg, By Mouth, Daily at bedtime, # 60 capsule, 11 Refills, Maintenance, 06/25/21 12:00:00 EST, [facility]aps[facility], [facility], Partial fill upon patient request [...] Acute 03/16/23 6:08:00 EDT, 10/14/22 6:08:00 EDT, [place], [facility][id number], Partial fill upon patient request if the [...] 11/06/22 6:52:00 EDT, Route to Pharmacy Electronically, [facility], 160, cm, 10/13/22 16:25:00 EDT, Height, [...] 5 Refills, Maintenance, 07/29/22 6:50:00 EST, [facility]t, [facility], Partial fill upon patient request if the prescription is for a schedule II opioid drug., 160, cm, 07/18/22 11:39:00 EST,... Start Date: 07/29/22 Status: Ordered penicillin V potassium 250 mg oral tablet 1 tablet = 250 mg, By Mouth, 2 times a day, CELLULITIS PROPHYLAXIS, # 60 tablet, 5 Refills, Maintenance, 11/06/22 17:25:00 EDT, Tablet, [facility], Partial fill upon patient request if the prescription is for a schedule II opioid drug., 160, c... Start Date: 11/06/22 Stop Date: 05/05/23 Status: Ordered predniSONE 10 mg oral tablet 1 tablet, By Mouth, Daily, ^1R1., # 30 tablet, 2 Refills, Maintenance, 11/21/22 16:59:00 EDT, [facility], 160, cm, 10/13/22 16:25:00 EDT, Height, 98.8, kg, 07/17/22 8:58:00 EST, Dry Weight Start Date: 11/21/22 Status: Ordered rOPINIRole 0.5 mg oral tablet See Instructions, TAKE 1 TABLET BY MOUTH THREE TIMES DAILY^1R1,1R3,1R4, # 90 tablet, 5 Refills, Maintenance, 07/24/22 23:41:00 EST, [facility], 160, cm, 07/18/22 11:39:00 EST, Height, 98.8, kg, 07/17/22 8:58:00 EST, Dry Weight Start Date: 07/24/22 Status: Ordered rosuvastatin 10 mg oral tablet 1 tablet, By Mouth, Daily, ^1R1., # 30 tablet, 5 Refills, Maintenance, 09/10/22 5:31:00 EST, [facility], 160, cm, 09/09/22 14:31:00 EST, Height, 98.8, kg, 07/17/22 8:58:00 EST, Dry Weight Start Date: 09/10/22 Status: Ordered Symbicort 80mcg/4.5mcg Inhaler See Instructions, INHALE 2 PUFFS BY MOUTH TWICE A DAY RINSE MOUTH AND THROAT AFTER USE, # 10.2 Gm, Refills 5, Maintenance, 07/30/22 21:16:00 EST, Instructions Replace Required Details, [id number]... 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 [...] Role: Primary Care Nurse Address: Address: [address] [place] [address]- [place] Name: Marley Alejo RN Position: [facility] RN Member Role: Primary Care Nurse Name: Eulogio Nickerson MD Position: [facility] Primary Care Physician Member Role: PCP Address: Address: [address] [place] [id number]- [place] Name: Alma Delia Fonseca PharmD Position: [facility] Associate Professional Member Role: Lifetime Consulting Provider Address: Address: [address] [facility] [place] [address]- [place] Name: Yolis Mattson RN Position: [facility] RN Member Role: Primary Care Nurse Name: Priscila Garzon RN Position: [facility] RN Member Role: Primary Care Nurse Name: Renea Mart RN Position: [facility] RN Member Role: Primary Care Nurse Care Team Related Persons Name: FAUZIA JANSEN Address: [address] [address] Name: AURELIA SHETH Address: home [address] [place] [address] Name: BRE OSORIO Address: home [address] [place] [address]
--- OUTSIDE RECORDS SUMMARY | 2024-01-02 21:33 | XMS_ITS | Continuity of Care Document ---
Author Organization [facility] Nolberto lt Address [address] [place] [address]- Care Team Providers Care Forging Die Finisher Name Role Phone Radha GRIDER, Fuentes Kenny Primary Care Physician [facility] Date[facility]s): 08/01/20 - 08/31/20 [facility] Adult [address] [place] [address]- Allergies, Adverse Reactions, Alerts Substance Reaction Severity [...] H1N1, inactive(oldterm) 8 05/08/11 Given 1Result Comment: [id number] 2Result Comment: [id number] 3Result Comment: [07/08/2017] [id number] 4Admin Note: [facility] 5Admin Note: [facility] [...] 5 Refills, Maintenance, 07/03/20 9:16:00 EST, Cream, [facility] #[id number], Partial fill upon patient request if the [...] 06/04/20 12:56:00 EST, Route to Pharmacy Electronically, [facility] #[id number], please schedule appt for further refills, 165, cm, 05/16/20 14:15:00 EDT, Hei... Start Date: 06/04/20 Status: Ordered Claritin 10 mg oral tablet 10 mg, 1, tablet, By Mouth, Daily, for 90 days, # 90 tablet, Refills 3, Tot. Refills 3, Acute 07/28/21 15:22:00 EST, 08/02/20 15:22:00 EST, Route to Pharmacy Electronically, [facility] #[id number], 165, cm, 07/31/20 14:32:00 EST, Height, 127, kg,... Start Date: 08/02/20 Stop Date: 07/28/21 Status: Ordered colchicine 0.6 mg oral tablet See Instructions, take 1 tablet by mouth once daily if needed for PSEUDOGOUT pain, # 30 tablet, Refills 5, Tot. Refills 5, Soft Stop, 01/05/20 8:41:00 EDT, Instructions Replace Required Details, Route to Pharmacy Electronically, [facility] #... Start Date: 01/05/20 Status: Ordered Disposable [...] Gm, 3 Refills, Maintenance, 06/22/20 14:58:00 EST, [facility] #[id number], 165, cm, 06/07/20 13:52:00 EST, Height, 127, [...] mL, 5 Refills, Maintenance, 10/01/18 10:08:42 EST, [place], 2 sprays Nares, Both 2 times a [...] 08/02/20 16:13:00 EST, Route to Pharmacy Electronically, [facility] #[id number], D/C RX ON FILE FOR ABRAM, 165, [...] 09/29/20 14:57:00 EST, 07/31/20 14:57:00 EST, Capsule, [facility] #[id number], Partial fill upon patient request if the prescription is for a schedule II opi... Start Date: 07/31/20 Stop Date: 09/29/20 Status: Ordered methenamine hippurate 1 gm oral tablet 1 tablet = 1 Gm, By Mouth, 2 times a day, # 60 tablet, 1 Refills, Maintenance, 07/12/20 13:56:00 EST, [facility] #[id number], Partial fill upon patient request if the prescription is for a schedule II opioid drug., 165, cm, 07/11/20 15:24:00 EST,... Start Date: 07/12/20 Stop Date: 07/05/21 Status: Ordered metoprolol 25 mg oral tablet 25 mg, 1, tablet, By Mouth, 2 times a day, # 60 tablet, Refills 5, Tot. Refills 5, Maintenance, 03/22/20 16:34:00 EDT, Route to Pharmacy Electronically, [facility] #[id number], 165, cm, 02/02/2014:39:00 EDT, Height, 127, kg, [...] 0 Refills, Maintenance, 06/18/20 16:57:00 EST, Patch, [facility] #[id number], Partial fill upon patient request, 165, cm, 06/07/20 13:52:00 EST, Height, 127, kg, 02/03/20 14:39:00 EDT, Dry Weight Start Date: 06/18/20 Stop Date: 07/30/20 Status: Ordered NuLYTELY with Flavor Packs oral powder for reconstitution See Instructions, Drink 240mL every 15-20 minutes until first half is gone. Repeat 6 hours prior toprocedure., # 4,000 mL, 0 Refills, Maintenance, 06/28/20 17:09:00 EST, [facility] #[id number],Partial fill upon patient request if the prescript... Start Date: 06/28/20 Status: Ordered oxyCODONE 10 mg oral tablet 1 tablet = 10 mg, By Mouth, Every 8 hours, DX Z79.891 G89.29 M47.816 OK TO FILL LESS THAN PRESCRIBED AMOUNT, # 84 tablet, 0 Refills, Maintenance, 08/14/20 14:32:00 EST, Tablet, [facility] #[id number], 08/14/20, 165, cm, 07/31/20 14:32:00 EST, He... [...] 5 Refills, Maintenance, 04/30/20 15:13:00 EDT, Tablet, [facility] #[id number], 165, cm, 04/30/20 14:30:00 EDT, Height, 127, kg, 02/03/20 14:39:00 EDT, Dry Weight Start Date: 04/30/20 Status: Ordered rosuvastatin 10 mg oral tablet 1 tablet = 10 mg, By Mouth, Daily, # 90 tablet, 3 Refills, Maintenance, 05/03/20 16:35:00 EDT, Tablet, [facility] #[id number], d/c rx for capsules, 165, cm, 04/30/20 14:30:00 EDT, Height, 127, kg, 02/03/20 14:39:00 EDT, Dry Weight Start Date: 05/03/20 Status: Ordered Ventolin HFA 108 mcg/inh inhalation aerosol with adapter 2 puffs, Inhalation, Every 4 hours, PRN Wheezing/Shortness of Breath, # 1 each, 11 Refills, Soft Stop, 01/19/20 11:46:00 EDT, [facility] #[id number], 165, cm, 01/16/20 6:17:00 EDT, Height, 128.1, kg, 01/16/20 6:17:00 EDT, Dry Weight Start Date: 01/19/20 Status: Ordered warfarin 5 mg oral tablet 1 tablet = 5 mg, By Mouth, Daily, dosing subject to change pending inr lab values, # 30 tablet, 11 Refills, Maintenance, 08/31/20 15:36:00 EST, Tablet, [facility] #[id number], 165, cm, 07/31/20 14:32:00 EST, Height, 127, [...]
--- OUTSIDE RECORDS SUMMARY | 2024-01-02 21:33 | XMS_ITS | Continuity of Care Document ---
Author Organization [facility] Address [address] [place] [address]- Care Team Providers Care Director Telemetry Name Role Phone Fuentes Garcia MD Primary Care Physician [place] [facility] [place]30/19 - 12/30/[address] [facility] [address] [address]- [facility] Attending Physician: Desire Velasquez Admitting Physician: [...] H1N1, inactive(oldterm) 7 05/08/11 Given 1Result Comment: [id number] 2Result Comment: [07/08/2017] [id number] 3Admin Note: [facility] 4Admin Note: [facility] [...] 12/06/19 9:16:00 EDT, Route to Pharmacy Electronically, [facility] #[id number], please schedule appt for further refills, 162, cm, 09/21/19 12:01:00 Tc [facility]PA[facility] Start Date: 12/06/19 Status: Ordered Claritin 10 mg oral tablet 10 mg, 1, tablet, By Mouth, Daily, for 30 days, # 30 tablet, Refills 11, Tot. Refills 11, Acute 05/11/20 17:36:41 EDT, 05/17/19 17:36:41 EDT, Route to Pharmacy Electronically, [id number], [facility] - [address] [place] [address] Start Date: 05/17/19 Stop Date: 05/11/20 Status: [...] Gm, 1 Refills, Maintenance, 12/20/19 16:30:00 EDT, [facility] #[id number], 162, cm, 09/21/19 12:01:00 EST, Height, 116.4, [...] mL, 5 Refills, Maintenance, 10/01/18 10:08:42 EST, [place], 2 sprays Nares, Both 2 times a [...] 09/28/19 11:53:00 EST, [id number], 162, cm, 09/21/2011:01:00 EST, Height, 116.4, kg, [...] Refills, Maintenance, 12/05/19 17:35:00 EDT, Tablet, [id number], 162, cm, 09/21/19 12:01:00 EST, Height, 116.4, kg... 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
--- OUTSIDE RECORDS SUMMARY | 2024-01-02 21:33 | XMS_ITS | Continuity of Care Document ---
Author Organization [facility] Buck Nolberto Address [address] [place] [address]- Care Team Providers Care Boat Assembler Name Role Phone Fuentes Garcia MD Primary Care Physician [facility] Date(s): 11/19/20 - 11/26/20 [facility] Adult [address] [place] [address]- Attending Physician: Fuentes Garcia MD Allergies, Adverse [...] H1N1, inactive(oldterm) 8 05/08/11 Given 1Result Comment: [id number] 2Result Comment: [id number] 3Result Comment: [07/08/2017] [id number] 4Admin Note: [facility] 5Admin Note: [facility] [...] 11 Refills, Maintenance, 10/31/20 14:14:00 EDT, Cream, [id number], Partial fill upon patient request if the [...] 06/04/20 12:56:00 EST, Route to Pharmacy Electronically, [facility] #[id number], please schedule appt for further refills, 165, cm, 05/16/20 14:15:00 EDT, Hei... Start Date: 06/04/20 Status: Ordered Claritin 10 mg oral tablet 10 mg, 1, tablet, By Mouth, Daily, for 90 days, # 90 tablet, Refills 3, Tot. Refills 3, Acute 07/28/21 15:22:00 EST, 08/02/20 15:22:00 EST, Route to Pharmacy Electronically, [facility] #[id number], 165, cm, 07/31/20 14:32:00 EST, Height, 127, [...] PMR, history of smoking fax to : [phone], 04... Start Date: 10/26/20 Status: Ordered Disposable [...] Gm, 3 Refills, Maintenance, 06/22/20 14:58:00 EST, [facility] #[id number], 165, cm, 06/07/20 13:52:00 EST, Height, 127, [...] mL, 5 Refills, Maintenance, 10/01/18 10:08:42 EST, [place], 2 sprays Nares, Both 2 times a [...] 08/02/20 16:13:00 EST, Route to Pharmacy Electronically, [facility] #[id number], D/C RX ON FILE FOR CLARITAN, 165, [...] tablet, 1 Refills, Maintenance, 07/12/20 13:56:00 EST, [facility] #[id number], Partial fill upon patient request if the prescription is for a schedule II opioid drug., 165, cm, 07/11/20 15:24:00 EST,... Start Date: 07/12/20 Stop Date: 07/05/21 Status: Ordered metoprolol 25 mg oral tablet 25 mg, 1, tablet, By Mouth, 2 times a day, # 60 tablet, Refills 5, Tot. Refills 5, Maintenance, 09/22/20 13:59:00 EST, Route to Pharmacy Electronically, [facility] #[id number], 165, cm, 07/31/2113:32:00 EST, Height, 127, kg, 02/03/20 14:39:00 ED... Start Date: 09/22/20 Status: Ordered Mitigare 0.6 mg oral capsule 1 capsule = 0.6 mg, By Mouth, Daily, # 30 capsule, 11 Refills, Maintenance, 10/31/20 14:29:00 EDT, [facility] #[id number], D/C RX ON FILE FOR COLCHICINE NOT [...] 0 Refills, Maintenance, 06/18/20 16:57:00 EST, Patch, [email or web address] #[id number], Partial fill upon patient request, 165, cm, 06/07/20 13:52:00 EST, Height, 127, kg, 02/03/20 14:39:00 EDT, Dry Weight Start Date: 06/18/20 Stop Date: 07/30/20 Status: Ordered NuLYTELY with Flavor Packs oral powder for reconstitution See Instructions, Drink 240mL every 15-20 minutes until first half is gone. Repeat 6 hours prior toprocedure., # 4,000 mL, 0 Refills, Maintenance, 06/28/20 17:09:00 EST, [facility] #[id number],Partial fill upon patient request if the prescript... Start Date: 06/28/20 Status: Ordered oxyCODONE 10 mg oral tablet 1 tablet = 10 mg, By Mouth, Every 8 hours, DX Z79.891 G89.29 M47.816 OK TO FILL LESS THAN PRESCRIBED AMOUNT, # 84 tablet, 0 Refills, Maintenance, 11/05/20 17:14:00 EDT, Tablet, [facility] #[id number], 11/06/20, 165, cm, 10/19/20 8:59:00 EDT, Hei... Start Date: 11/05/20 Stop Date: 12/03/20 Status: Ordered penicillin V potassium 250 mg oral tablet 1 tablet = 250 mg, By Mouth, 2 times a day, Cellulitis prophylaxis, # 60 tablet, 11 Refills, Maintenance, 10/30/20 12:09:00 EDT, [email or web address] #[id number], 165, cm, 10/19/20 8:59:00 EDT, Height, 127, kg, 02/03/20 14:39:00 EDT, Dry Weight Start Date: 10/30/20 Status: Ordered predniSONE 10 mg oral tablet 1 tablet = 10 mg, By Mouth, Daily, # 30 tablet, 5 Refills, Maintenance, 11/19/20 11:50:00 EDT, Tablet, [email or web address] #[id number], Partial fill upon patient request if the [...] 5 Refills, Maintenance, 04/30/20 15:13:00 EDT, Tablet, [facility] #[id number], 165, cm, 04/30/20 14:30:00 EDT, Height, 127, kg, 02/03/20 14:39:00 EDT, Dry Weight Start Date: 04/30/20 Status: Ordered rosuvastatin 10 mg oral tablet 1 tablet = 10 mg, By Mouth, Daily, # 90 tablet, 3 Refills, Maintenance, 05/03/20 16:35:00 EDT, Tablet, [facility] #[id number], d/c rx for capsules, 165, cm, 04/30/20 14:30:00 EDT, Height, 127, kg, 02/03/20 14:39:00 EDT, Dry Weight Start Date: 05/03/20 Status: Ordered Ventolin HFA 108 mcg/inh inhalation aerosol with adapter 2 puffs, Inhalation, Every 4 hours, PRN Wheezing/Shortness of Breath, # 1 each, 5 Refills, Soft Stop, 11/08/20 8:46:00 EDT, [facility] #[id number], 165, cm, 10/19/20 8:59:00 EDT, Height, 127, kg, 02/03/20 14:39:00 EDT, Dry Weight Start Date: 11/08/20 Status: Ordered warfarin 5 mg oral tablet 1 tablet = 5 mg, By Mouth, Daily, dosing subject to change pending inr lab values, # 30 tablet, 11 Refills, Maintenance, 08/31/20 15:36:00 EST, Tablet, [facility] #[id number], 165, cm, 07/31/20 14:32:00 EST, Height, 127, [...] oldest [Reference Range]: 1 Height 165 cm (11/19/20 11:32 AM) Social History Social History Type Response Smoking Status 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
--- OUTSIDE RECORDS SUMMARY | 2024-01-02 21:33 | XMS_ITS | Continuity of Care Document ---
Author Organization [facility] Nolberto Address [address] [place] [address]- Care Team Providers Care Academic Hospitalist Name Role Phone Krishan GRIDER, Eulogio Molina Primary Care Physician [phone] Encounter [facility] Date(s): 12/16/21 - 01/15/22 [facility] Adult [address] [place] [address]- Allergies, Adverse Reactions, Alerts Substance Reaction Severity Status Adhesive Bandage Active Dust copd exac/sinus congestion A ctive Immunizations Given and Recorded Vaccine Date Status Refusal Reason SARS-CoV-2 mRNA (evsketm-hspk-rahiy) vax 08/30/21 Recorded influenza virus vaccine, inactivated [...] B adult vaccine 06/14/02 Recorded 1Result Comment: [id number] 2Result Comment: [id number] 3Result Comment: [id number] 4Result Comment: [07/08/2017] [id number] 5Admin Note: [facility] 6Admin Note: [facility] [...] 8.5 Gm, 5 Refills, 05/29/21 17:13:00 EDT, [facility] #[id number], 17, INHALE 2 PUFFS BY MOUTH EVERY [...] 0 Refills, Maintenance, 01/11/22 7:25:00 EDT, Capsule, [facility], Partial fill upon [...] Required Details, Route to Pharmacy Electronically, [facility], 165, cm, 01/06/22 14:35:00 EDT, Height, 102.1, kg, ... Start Date: 01/09/22 Status: Ordered colchicine 0.6 mg oral tablet 0.6 mg, 1, tablet, By Mouth, Daily, # 30 tablet, Refills 11, Tot. Refills 11, Maintenance, :00:00 EDT, Route to Pharmacy Electronically, [facility], Partial fill upon [...] 01/11/22 7:25:00 EDT, Route to Pharmacy Electronically, [facility], Partial fill upon patient request if the prescri... Start Date: 01/11/22 Stop Date: 02/10/22 Status: Ordered duloxetine 20 mg oral enteric coated capsule 2 capsule = 40 mg, By Mouth, Daily at bedtime, # 60 capsule, 11 Refills, Maintenance, 06/25/21 12:00:00 EST, Capsule, [facility], Partial fill upon [...] 01/18/22 7:26:00 EDT, 01/11/22 7:26:00 EDT, Injection, [facility], Partial fill upon patient request... [...] 01/16/22 7:27:00 EDT, 01/11/22 7:26:00 EDT, Tablet, [facility], Partial fill upon patient request if the prescription... Start Date: 01/11/22 Stop Date: 01/16/22 Status: Ordered loratadine 10 mg oral tablet See Instructions, TAKE 1 TABLET BY MOUTH ONCE A DAY, # 90 tablet, Refills 1, Instructions Replace Required Details, Route to Pharmacy Electronically, [facility], 165, cm, 06/25/21 [...] 12/11/21 13:41:00 EDT, [facility] Pharm[facility]ically, [facility], Partial fill upon patient requestif the [...] 03/05/22 16:36:00 EDT, 12/03/21 16:35:00 EDT, Gum, [facility] #[id number], Partial fill uponpatient request if the prescription [...] PROPHYLAXIS., # 60 tablet, 6 Refills, [facility], 165, cm, 11/08/21 10:02:00 EDT, Height, 127, kg, 02/03/20 14:39:00 EDT, Dry Weight Start Date: 11/15/21 Status: Ordered rOPINIRole 0.5 mg oral tablet 1 tablet, By Mouth, 3 times a day, # 90 tablet, 5 Refills, 11/08/21 9:01:00 EDT, [facility], 165, cm, 11/04/21 8:42:00 EDT, Height, 127, kg, 02/03/20 14:39:00 EDT, Dry Weight Start Date: 11/08/21 Status: Ordered rosuvastatin 10 mg oral tablet See Instructions, TAKE 1 TABLET BY MOUTH DAILY, # 90 tablet, 1 Refills, Maintenance, 10/18/21 21:30:00 EDT, [facility], 165, cm, 09/04/21 14:01:00 EST, [...] 01/18/22 7:28:00 EDT, 01/11/22 7:28:00 EDT, Tablet, [facility], Partial fill upon patient request if the prescription is... Start Date: 01/11/22 Stop Date: 01/18/22 Status: Ordered warfarin 1 mg oral tablet See Instructions, Take 1-10 tablets By Mouth Daily as directed by THOM, # 150 tablet, 0 Refills, Maintenance, 01/11/22 7:24:00 EDT, Tablet, [facility], Partial fill [...]
--- OUTSIDE RECORDS SUMMARY | 2024-01-02 21:33 | XMS_ITS | Continuity of Care Document ---
Author Organization [facility] Robin Jane Nolberto Address [address] [place] [address]- Care Team Providers Care Latent Fingerprint Examiner Name Role Phone Kyle Ahumada DO Primary Care Physician [phone] Encounter [facility] Date(s): 02/05/23 - 03/07/23 [facility] Adult [address] [place] [address]- Allergies, Adverse Reactions, Alerts Substance Reaction Severity [...] vaccine, inactivated 05/10/07 Jarrett rded SARS-CoV-2 mRNA (cwlcnqf-cbtw-xkjow) vax 08/30/21 Recorded SARS-CoV-2 (COVID-19) mRNA BNT-162b2 vac 01/02/21 Recorded SARS-CoV-2 (COVID-19) mRNA BNT-162b2 vac 12/02/20 Recorded Fluvirin (oldterm) 8 03/22/15 Given Fluzone Preservative-Free (oldterm) 9 03/12/12 Giv en pneumococcal 23-valent vaccine 10/08/11 Given tetanus/diphtheria/pertussis, acel(Tdap) 09/08/11 Given tetanus/diphtheria/pertussis, acel(Tdap) 12/17/06 Recorded influ virus vac, H1N1, inactive(oldterm) 10 05/08/11 Given hepatitis B adult vaccine 06/14/02 Recorded 1Result Comment: [id number] 2Result Comment: [id number] 3Result Comment: [id number] 4Result Comment: [id number] 5Result Comment: [07/08/2017] [id number] 6Admin Note: [facility] 7Admin Note: [facility] [...] Gm, 4 Refills, Maintenance, 09/08/22 14:55:00 EST, [facility], 30, INHALE 2 PUFFS BY [...] 10/03/22 11:23:00 EST, [facility] Pharm[facility]ically, [facility], 160,cm, 09/09/22 14:31:00 EST, Height, 98.8, kg, 07/17/... Start Date: 10/03/22 Status: Ordered cyclobenzaprine 5 mg oral tablet 1 tablet = 5 mg, By Mouth, 3 times a day, # 45 tablet, 1 Refills, Maintenance, 03/03/23 9:27:00 EDT, [facility], Partial fill upon patient request [...] 01/11/22 7:25:00 EDT, Route to Pharmacy Electronically, [facility], Partial fill upon patient request if the prescri... Start Date: 01/11/22 Stop Date: 02/10/22 Status: Ordered duloxetine 20 mg oral enteric coated capsule 2 capsule = 40 mg, By Mouth, Daily at bedtime, # 60 capsule, 11 Refills, Maintenance, 06/25/21 12:00:00 EST, Capsule, [facility], Partial fill upon patient request if [...] 03/02/23 18:12:00 EDT, Route to Pharmacy Electronically, [email or web address], Partial fill upon patient request if the prescription is for a schedule II opioid drug... Start Date: 03/02/23 Status: Ordered ipratropium nasal 21 mcg/inh spray 2 sprays = 42 mcg, Nares, Both, 2 times a day, # 30 mL, 5 Refills, Acute 03/16/23 6:08:00 EDT, 10/14/22 6:08:00 EDT, [place], [facility] #[id number], Partial fill upon patient request if the [...] 02/07/23 18:12:00 EDT, Route to Pharmacy Electronically, [email or web address], 160, cm, 12/16/22 10:46:00 EDT, Height, [...] 5 Refills, Maintenance, 11/06/22 17:25:00 EDT, Tablet, [email or web address], Partial fill upon patient request if the prescription is for a schedule II opioid drug., 160, c... Start Date: 11/06/22 Stop Date: 05/05/23 Status: Ordered rOPINIRole 0.5 mg oral tablet 1 tablet, By Mouth, 3 times a day, ^1R1,1R3,1R4., # 90 tablet, 5 Refills, Maintenance, 12/24/22 14:21:00 EDT, [email or web address], 160, cm, 12/16/22 10:46:00 EDT, Height, 98.8, kg, 07/17/22 8:58:00 EST, Dry Weight Start Date: 12/24/22 Status: Ordered rosuvastatin 10 mg oral tablet 1 tablet, By Mouth, Daily, ^1R1., # 30 tablet, 5 Refills, Maintenance, 02/07/23 18:12:00 EDT, [email or web address], 160, cm, 12/16/22 10:46:00 EDT, Height, 98.8, kg, 07/17/22 8:58:00 EST, Dry Weight Start Date: 02/07/23 Status: Ordered Symbicort 80mcg/4.5mcg Inhaler See Instructions, INHALE 2 PUFFS BY MOUTH TWICE A DAY RINSE MOUTH AND THROAT AFTER USE, # 10.2 Gm, Refills 5, Maintenance, 07/30/22 21:16:00 EST, Instructions Replace Required Details, Route to Pharmacy Electronically, [id number], [email or web address]... Start Date: 07/30/22 Status: Ordered Xarelto 20 mg oral tablet 1 tablet = 20 mg, By Mouth, Daily at supper, # 90 tablet, 1 Refills, Maintenance, 03/02/23 18:12:00EDT, Tablet, [email or web address], pt was rx'd w diltiazem on [...] Confirmed Active Gastric banding status Confirmed Active detention current use of opiate analgesic Confirmed Active [...] Role: Primary Care Nurse Address: Address: [address] [place] [address] [place] [address]- [place] Name: Marley Alejo RN Position: [facility] RN Member Role: Primary Care Nurse Name: Alma Delia Fonseca PharmD Position: [facility] Associate Professional Member Role: Lifetime Consulting Provider Address: Address: [address] [place] [address] [place] [address]- [place] Name: Yolis Mattson RN Position: [facility] RN Member Role: Primary Care Nurse Name: Priscila Garzon RN Position: [facility] RN Member Role: Primary Care Nurse Name: Kyle Ahumada DO Position: [facility] Physician - Primary Care Member Role: PCP Address: Address: [address] [place] [address]- [place] Name: Renea Mart RN Position: [facility] RN Member Role: Primary Care Nurse Care Team Related Persons Name: FAUZIA JANSEN Address: home [address] [place] [address] Name: AURELIA SHETH Address: home [address] [place] [address] Name: BRE OSORIO Address: home [address] [place] [address]
--- OUTSIDE RECORDS SUMMARY | 2024-01-02 21:33 | XMS_ITS | Continuity of Care Document ---
Author Organization [facility] [place] Nolberto Address [address] [place] [address]- Care Team Providers Care Block Inspector Name Role Phone Krishan GRIDER, Eulogio Molina Primary Care Physician Encounter [facility] Date(s): 12/25/21 - 01/24/22 [facility] Adult [address] [place] [address]- Allergies, Adverse Reactions, Alerts Substance Reaction Severity Status Adhesive Bandage Active Dust copd exac/sinus congestion A ctive Immunizations Given and Recorded Vaccine Date Status Refusal Reason SARS-CoV-2 mRNA (jtbroix-eddl-xywmp) vax 08/30/21 Recorded influenza virus vaccine, inactivated [...] B adult vaccine 06/14/02 Recorded 1Result Comment: [id number] 2Result Comment: [id number] 3Result Comment: [id number] 4Result Comment: [07/08/2017] [id number] 5Admin Note: [facility] 6Admin Note: [facility] [...] 8.5 Gm, 5 Refills, 05/29/21 17:13:00 EDT, [facility] #[id number], 17, INHALE 2 PUFFS BY MOUTH EVERY [...] 0 Refills, Maintenance, 01/11/22 7:25:00 EDT, Capsule, [facility], [...] Replace Required Details, Route to Pharmacy Electronically, [facility], 165, cm, 01/06/22 14:35:00 EDT, Height, 102.1, kg, ... Start Date: 01/09/22 Status: Ordered colchicine 0.6 mg oral tablet 0.6 mg, 1, tablet, By Mouth, Daily, # 30 tablet, Refills 11, Tot. Refills 11, Maintenance, :00:00 EDT, Route to Pharmacy Electronically, [facility], Partial fill upon patient request [...] Pharmacy Electronically, [facility], Partial fill upon patient request if the prescri... Start Date: 01/11/22 Stop Date: 02/10/22 Status: Ordered duloxetine 20 mg oral enteric coated capsule 2 capsule = 40 mg, By Mouth, Daily at bedtime, # 60 capsule, 11 Refills, Maintenance, 06/25/21 12:00:00 EST, Capsule, [facility], Partial fill upon patient request [...] Replace Required Details, Route to Pharmacy Electronically, [facility], 165, cm, 06/25/21 11:35:00 EST, [...] 12/11/21 13:41:00 EDT, Route to Pharmacy Electronically, [facility], Partial fill upon patient requestif [...] 03/05/22 16:36:00 EDT, 12/03/21 16:35:00 EDT, Gum, [facility] #[id number], Partial fill uponpatient request if the prescription [...] PROPHYLAXIS., # 60 tablet, 6 Refills, [facility], 165, cm, 11/08/21 10:02:00 EDT, Height, 127, kg, 02/03/20 14:39:00 EDT, Dry Weight Start Date: 11/15/21 Status: Ordered rOPINIRole 0.5 mg oral tablet 1 tablet, By Mouth, 3 times a day, # 90 tablet, 5 Refills, 11/08/21 9:01:00 EDT, [facility], 165, cm, 11/04/21 8:42:00 EDT, Height, 127, kg, 02/03/20 14:39:00 EDT, Dry Weight Start Date: 11/08/21 Status: Ordered rosuvastatin 10 mg oral tablet See Instructions, TAKE 1 TABLET BY MOUTH DAILY, # 90 tablet, 1 Refills, Maintenance, 10/18/21 21:30:00 EDT, [facility], 165, cm, 09/04/21 14:01:00 EST, [...] 0 Refills, Maintenance, 01/11/22 7:24:00 EDT, Tablet, [facility], Partial fill upon patient [...] long-term use(Confirmed) Active Gastric banding status(Confirmed) Active nursing home current use of 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
--- OUTSIDE RECORDS SUMMARY | 2024-01-02 21:33 | XMS_ITS | Continuity of Care Document ---
Author Organization [facility] Robin Jane Nolberto lt Address [address] [place] [address]- Care Team Providers Care Internal Medicine Doctor Name Role Phone Radha GRIDER, Fuentes Kenny Primary Care Physician [phone] [facility]counter [facility] Date(s): 08/29/20 - 09/28/20 [facility] Adult [address] [place] [address]- Allergies, Adverse Reactions, Alerts Substance Reaction Severity [...] H1N1, inactive(oldterm) 8 05/08/11 Given 1Result Comment: [id number] 2Result Comment: [id number] 3Result Comment: [07/08/2017] [id number] 4Admin Note: [facility] 5Admin Note: [facility] [...] 5 Refills, Maintenance, 07/03/20 9:16:00 EST, Cream, [email or web address][id number], Partial fill upon patient request [...] 06/04/20 12:56:00 EST, Route to Pharmacy Electronically, [email or web address] #[id number], please schedule appt for further refills, 165, cm, 05/16/20 14:15:00 EDT, Hei... Start Date: 06/04/20 Status: Ordered Claritin 10 mg oral tablet 10 mg, 1, tablet, By Mouth, Daily, for 90 days, # 90 tablet, Refills 3, Tot. Refills 3, Acute 07/28/21 15:22:00 EST, 08/02/20 15:22:00 EST, Route to Pharmacy Electronically, [email or web address] #[id number], 165, cm, 07/31/20 14:32:00 EST, Height, 127, kg,... Start Date: 08/02/20 Stop Date: 07/28/21 Status: Ordered colchicine 0.6 mg oral tablet See Instructions, take 1 tablet by mouth once daily if needed for PSEUDOGOUT pain, # 30 tablet, Refills 5, Tot. Refills 5, Soft Stop, 01/05/20 8:41:00 EDT, Instructions Replace Required Details, Route to Pharmacy Electronically, [facility] #... Start Date: 01/05/20 Status: Ordered Disposable [...] Gm, 3 Refills, Maintenance, 06/22/20 14:58:00 EST, [email or web address] #[id number], 165, cm, 06/07/20 13:52:00 EST, Height, 127, [...] mL, 5 Refills, Maintenance, 10/01/18 10:08:42 EST, [place], 2 sprays Nares, Both 2 times a [...] 08/02/20 16:13:00 EST, Route to Pharmacy Electronically, [facility] #[id number], D/C RX ON FILE FOR ABRAM, 165, [...] 09/29/20 14:57:00 EST, 07/31/20 14:57:00 EST, Capsule, [facility] #[id number], Partial fill upon patient request if the prescription is for a schedule II opi... Start Date: 07/31/20 Stop Date: 09/29/20 Status: Ordered methenamine hippurate 1 gm oral tablet 1 tablet = 1 Gm, By Mouth, 2 times a day, # 60 tablet, 1 Refills, Maintenance, 07/12/20 13:56:00 EST, [email or web address] #[id number], Partial fill upon patient request if the prescription is for a schedule II opioid drug., 165, cm, 07/11/20 15:24:00 EST,... Start Date: 07/12/20 Stop Date: 07/05/21 Status: Ordered metoprolol 25 mg oral tablet 25 mg, 1, tablet, By Mouth, 2 times a day, # 60 tablet, Refills 5, Tot. Refills 5, Maintenance, 09/22/20 13:59:00 EST, Route to Pharmacy Electronically, [facility] #[id number], 165, cm, 07/31/2113:32:00 EST, Height, 127, kg, [...] 0 Refills, Maintenance, 06/18/20 16:57:00 EST, Patch, [facility] #[id number], Partial fill upon patient request, 165, cm, 06/07/20 13:52:00 EST, Height, 127, kg, 02/03/20 14:39:00 EDT, Dry Weight Start Date: 06/18/20 Stop Date: 07/30/20 Status: Ordered NuLYTELY with Flavor Packs oral powder for reconstitution See Instructions, Drink 240mL every 15-20 minutes until first half is gone. Repeat 6 hours prior toprocedure., # 4,000 mL, 0 Refills, Maintenance, 06/28/20 17:09:00 EST, [email or web address][id number],Partial fill upon patient request if the prescript... Start Date: 06/28/20 Status: Ordered oxyCODONE 10 mg oral tablet 1 tablet = 10 mg, By Mouth, Every 8 hours, DX Z79.891 G89.29 M47.816 OK TO FILL LESS THAN PRESCRIBED AMOUNT, # 84 tablet, 0 Refills, Maintenance, 09/10/20 17:26:00 EST, Tablet, [facility] #[id number], 09/11/20, 165, cm, 07/31/20 14:32:00 EST, He... [...] 5 Refills, Maintenance, 04/30/20 15:13:00 EDT, Tablet, [facility] #[id number], 165, cm, 04/30/20 14:30:00 EDT, Height, 127, kg, 02/03/20 14:39:00 EDT, Dry Weight Start Date: 04/30/20 Status: Ordered rosuvastatin 10 mg oral tablet 1 tablet = 10 mg, By Mouth, Daily, # 90 tablet, 3 Refills, Maintenance, 05/03/20 16:35:00 EDT, Tablet, [email or web address] #[id number], d/c rx for capsules, 165, cm, 04/30/20 14:30:00 EDT, Height, 127, kg, 02/03/20 14:39:00 EDT, Dry Weight Start Date: 05/03/20 Status: Ordered Ventolin HFA 108 mcg/inh inhalation aerosol with adapter 2 puffs, Inhalation, Every 4 hours, PRN Wheezing/Shortness of Breath, # 1 each, 11 Refills, Soft Stop, 01/19/20 11:46:00 EDT, [email or web address] #[id number], 165, cm, 01/16/20 6:17:00 EDT, Height, 128.1, kg, 01/16/20 6:17:00 EDT, Dry Weight Start Date: 01/19/20 Status: Ordered warfarin 5 mg oral tablet 1 tablet = 5 mg, By Mouth, Daily, dosing subject to change pending inr lab values, # 30 tablet, 11 Refills, Maintenance, 08/31/20 15:36:00 EST, Tablet, [facility] #[id number], 165, cm, 07/31/20 14:32:00 EST, Height, 127, [...]
--- OUTSIDE RECORDS SUMMARY | 2024-01-02 21:33 | XMS_ITS | Continuity of Care Document ---
Author Organization [facility] Buck Nolberto Address [address] [place] [address]- Care Team Providers Care Lamination Assembler Name Role Phone Radha GRIDER, Fuentes Kenny Primary Care Physician [facility] Date[facility]s): 10/31/20 - 11/30/20 [facility] [place] Adult [address] [place] [address]- Allergies, Adverse Reactions, Alerts Substance Reaction Severity [...] H1N1, inactive(oldterm) 8 05/08/11 Given 1Result Comment: [id number] 2Result Comment: [id number] 3Result Comment: [07/08/2017] [id number] 4Admin Note: [facility] 5Admin Note: [facility] [...] 11 Refills, Maintenance, 10/31/20 14:14:00 EDT, Cream, [facility] #[id number], Partial fill upon patient request if the [...] 11/27/20 10:09:00 EDT, Route to Pharmacy Electronically, [facility] #[id number], please schedule appt for further refills, 165, cm, 11/19/20 11:32:00 EDT, Hei... Start Date: 11/27/20 Status: Ordered Claritin 10 mg oral tablet 10 mg, 1, tablet, By Mouth, Daily, for 90 days, # 90 tablet, Refills 3, Tot. Refills 3, Acute 07/28/21 15:22:00 EST, 08/02/20 15:22:00 EST, Route to Pharmacy Electronically, [facility] #[id number], 165, cm, 07/31/20 14:32:00 EST, Height, 127, [...] PMR, history of smoking fax to : [phone], 04... Start Date: 10/26/20 Status: Ordered Disposable [...] Gm, 3 Refills, Maintenance, 06/22/20 14:58:00 EST, [facility] #[id number], 165, cm, 06/07/20 13:52:00 EST, Height, 127, [...] mL, 5 Refills, Maintenance, 10/01/18 10:08:42 EST, [place], 2 sprays Nares, Both 2 times a [...] 08/02/20 16:13:00 EST, Route to Pharmacy Electronically, [facility] #[id number], D/C RX ON FILE FOR CLARITAN, 165, [...] tablet, 1 Refills, Maintenance, 07/12/20 13:56:00 EST, [facility] #[id number], Partial fill upon patient request if the prescription is for a schedule II opioid drug., 165, cm, 07/11/20 15:24:00 EST,... Start Date: 07/12/20 Stop Date: 07/05/21 Status: Ordered metoprolol 25 mg oral tablet 25 mg, 1, tablet, By Mouth, 2 times a day, # 60 tablet, Refills 5, Tot. Refills 5, Maintenance, 09/22/20 13:59:00 EST, Route to Pharmacy Electronically, [facility] #[id number], 165, cm, 07/31/2113:32:00 EST, Height, 127, kg, 02/03/20 14:39:00 ED... Start Date: 09/22/20 Status: Ordered Mitigare 0.6 mg oral capsule 1 capsule = 0.6 mg, By Mouth, Daily, # 30 capsule, 11 Refills, Maintenance, 10/31/20 14:29:00 EDT, [facility] #[id number], D/C RX ON FILE FOR COLCHICINE NOT [...] 0 Refills, Maintenance, 06/18/20 16:57:00 EST, Patch, [facility] #[id number], Partial fill upon patient request, 165, cm, 06/07/20 13:52:00 EST, Height, 127, kg, 02/03/20 14:39:00 EDT, Dry Weight Start Date: 06/18/20 Stop Date: 07/30/20 Status: Ordered NuLYTELY with Flavor Packs oral powder for reconstitution See Instructions, Drink 240mL every 15-20 minutes until first half is gone. Repeat 6 hours prior toprocedure., # 4,000 mL, 0 Refills, Maintenance, 06/28/20 17:09:00 EST, [facility] #[id number],Partial fill upon patient request if the prescript... Start Date: 06/28/20 Status: Ordered oxyCODONE 10 mg oral tablet 1 tablet = 10 mg, By Mouth, Every 8 hours, DX Z79.891 G89.29 M47.816 OK TO FILL LESS THAN PRESCRIBED AMOUNT, # 84 tablet, 0 Refills, Maintenance, 11/05/20 17:14:00 EDT, Tablet, [facility] #[id number], 11/06/20, 165, cm, 10/19/20 8:59:00 EDT, Hei... Start Date: 11/05/20 Stop Date: 12/03/20 Status: Ordered penicillin V potassium 250 mg oral tablet 1 tablet = 250 mg, By Mouth, 2 times a day, Cellulitis prophylaxis, # 60 tablet, 11 Refills, Maintenance, 10/30/20 12:09:00 EDT, [facility] #[id number], 165, cm, 10/19/20 8:59:00 EDT, Height, 127, kg, 02/03/20 14:39:00 EDT, Dry Weight Start Date: 10/30/20 Status: Ordered predniSONE 10 mg oral tablet 1 tablet = 10 mg, By Mouth, Daily, # 30 tablet, 5 Refills, Maintenance, 11/19/20 11:50:00 EDT, Tablet, [facility] #[id number], Partial fill upon patient request if the [...] 5 Refills, Maintenance, 04/30/20 15:13:00 EDT, Tablet, [facility] #[id number], 165, cm, 04/30/20 14:30:00 EDT, Height, 127, kg, 02/03/20 14:39:00 EDT, Dry Weight Start Date: 04/30/20 Status: Ordered rosuvastatin 10 mg oral tablet 1 tablet = 10 mg, By Mouth, Daily, # 90 tablet, 3 Refills, Maintenance, 05/03/20 16:35:00 EDT, Tablet, [facility] #[id number], d/c rx for capsules, 165, cm, 04/30/20 14:30:00 EDT, Height, 127, kg, 02/03/20 14:39:00 EDT, Dry Weight Start Date: 05/03/20 Status: Ordered Ventolin HFA 108 mcg/inh inhalation aerosol with adapter 2 puffs, Inhalation, Every 4 hours, PRN Wheezing/Shortness of Breath, # 1 each, 5 Refills, Soft Stop, 11/08/20 8:46:00 EDT, [facility] #[id number], 165, cm, 10/19/20 8:59:00 EDT, Height, 127, kg, 02/03/20 14:39:00 EDT, Dry Weight Start Date: 11/08/20 Status: Ordered warfarin 5 mg oral tablet 1 tablet = 5 mg, By Mouth, Daily, dosing subject to change pending inr lab values, # 30 tablet, 11 Refills, Maintenance, 08/31/20 15:36:00 EST, Tablet, [facility] #[id number], 165, cm, 07/31/20 14:32:00 EST, Height, 127, [...] long-term use(Confirmed) Active Gastric banding status(Confirmed) Active [facility] current use of 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
--- OUTSIDE RECORDS SUMMARY | 2024-01-02 21:33 | XMS_ITS | Continuity of Care Document ---
Author Organization [facility] Buck Nolberto lt Address [address] [place] [address]- Care Team Providers Care Demand Equipment Repairer Name Role Phone Radha GRIDER, Fuentes Kenny Primary Care Physician [facility] Date[facility]s): 07/31/21 - 08/31/21 [facility] Adult [address] [place] [address]- Attending Physician: Not on Staff, Attending MD [...] B adult vaccine 06/14/02 Recorded 1Result Comment: [id number] 2Result Comment: [id number] 3Result Comment: [id number] 4Result Comment: [07/08/2017] [id number] 5Admin Note: [facility] 6Admin Note: [facility] [...] 8.5 Gm, 5 Refills, 05/29/21 17:13:00 EDT, [facility] #[id number], 17, INHALE 2 PUFFS BY MOUTH EVERY [...] 11 Refills, Maintenance, 10/31/20 14:14:00 EDT, Cream, [facility] #[id number], Partial fill upon patient request if the [...] tablet, Refills 3, Route to Pharmacy Electronically, [facility], 165, cm, 06/25/21 11:35:00 EST, Height, [...] PMR, history of smoking fax to : [phone], 04... Start Date: 10/26/20 Status: Ordered Disposable [...] 11 Refills, Maintenance, 06/25/21 12:00:00 EST, Capsule, [facility], Partial fill upon patient [...] Gm, 3 Refills, Maintenance, 06/22/20 14:58:00 EST, [facility] #[id number], 165, cm, 06/07/20 13:52:00 EST, Height, 127, [...] Refills, Maintenance, 05/24/21 16:13:00 EDT, REC Powder, [facility] #[id number], Partial fill upon patient request if the [...] mL, 5 Refills, Maintenance, 10/01/18 10:08:42 EST, [place], 2 sprays Nares, Both 2 times a [...] Details, Route to Pharmacy Electronically, [facility], 165, cm, 06/25/21 11:35:00 EST, [...] Maintenance, 05/21/21 11:19:00 EDT, Tablet, [facility], Partial fill upon patient request if the prescription is for a schedule II... Start Date: 05/21/21 Status: Ordered methenamine hippurate 1 gm oral tablet 1 tablet = 1 Gm, By Mouth, 2 times a day, # 60 tablet, 11 Refills, Maintenance, 07/05/21 14:00:00 EST, [facility], Partial fill upon patient request if the prescription is for a schedule II opioid drug., 165, cm, 02/28/21 14:22:00 EDT, Height,... Start Date: 07/05/21 Status: Ordered Metoprolol Tartrate 25 mg oral tablet 1 tablet, By Mouth, 2 times a day, # 60 tablet, 3 Refills, [facility], 165, cm, 06/25/21 11:35:00 EST, Height, 127, kg, 02/03/20 14:39:00 EDT, Dry Weight Start Date: 07/09/21 Status: Ordered Mitigare 0.6 mg oral capsule 1 capsule, By Mouth, Daily, # 30 capsule, 11 Refills, Maintenance, 12/31/20 16:51:00 EDT, [id number], 165, cm, 11/19/20 11:32:00 EDT, Height, 127, [...] 0 Refills, Maintenance, 04/11/21 9:00:00 EDT, Patch, [facility], Partial fill upon patient request, 165, cm, 02/28/21 14:22:00 EDT, Height, 127, kg, 02/03/20 14:39:00 EDT, Dry Weight Start Date: 04/11/21 Stop Date: 05/23/21 Status: Ordered NuLYTELY with Flavor Packs oral powder for reconstitution See Instructions, Drink 240mL every 15-20 minutes until first half is gone. Repeat 6 hours prior toprocedure., # 4,000 mL, 0 Refills, Maintenance, 06/28/20 17:09:00 EST, [facility] #[id number],Partial fill upon patient request if the prescript... [...] tablet, 11 Refills, Maintenance, 10/30/20 12:09:00 EDT, [facility] #[id number], 165, cm, 10/19/20 8:59:00 EDT, Height, 127, kg, 02/03/20 14:39:00 EDT, Dry Weight Start Date: 10/30/20 Status: Ordered predniSONE 5 mg oral tablet 1 tablet = 5 mg, By Mouth, Daily, # 30 tablet, 0 Refills, Maintenance, 01/11/21 14:20:00 EDT, Tablet, [facility] #[id number], Partial fill upon patient request if the prescription is for a schedule II opioid drug., 165, cm, 01/11/21 14:05:00 EDT,... Start Date: 01/11/21 Status: Ordered propranolol 20 mg oral tablet 20 mg, 1, tablet, By Mouth, 2 times a day, # 60 tablet, Refills 5, Tot. Refills 5, Maintenance, 06/25/21 11:57:00 EST, Route to Pharmacy Electronically, [facility], Partial fill upon patient request [...] # 90 tablet, 3 Refills, [facility], 165, cm, 06/25/21 11:35:00 EST, Height, 127, kg, 02/03/20 14:39:00 EDT, Dry Weight Start Date: 07/09/21 Status: Ordered rosuvastatin 10 mg oral tablet 1 tablet = 10 mg, By Mouth, Daily, # 90 tablet, 1 Refills, Maintenance, 05/20/21 15:53:00 EDT, Tablet, [facility], d/c rx for capsules, 165, cm, 02/28/21 14:22:00 EDT, Height, 127, kg, 02/03/20 14:39:00 EDT, Dry Weight Start Date: 05/20/21 Status: Ordered Trulicity Pen 1.5 mg/0.5 mL subcutaneous solution 0.5 mL = 1.5 mg, Subcutaneous Injection, Every week, take on same day every week, rotate injection sites E11.9, # 2 mL, 6 Refills, Maintenance, 07/23/21 10:03:00 EST, Solution, [facility] #[id number], Partial fill upon patient request if the p... Start Date: 07/23/21 Status: Ordered warfarin 2.5 mg oral tablet See Instructions, Dosing Subject To Change per INR Result per MD, # 30 each, 6 Refills, Maintenance, 06/12/21 17:09:00 EST, Tablet, [facility], Dosing Subject To Change per INR Result per MD,165, cm, 05/21/21 10:54:00 EDT, Height, 127, kg, 07... Start Date: 06/12/21 Status: Ordered warfarin 5 mg oral tablet See Instructions, Dosing Subject To Change Per INR Result per MD, # 30 each, 6 Refills, Maintenance, 06/12/21 17:05:00 EST, Tablet, [facility], PLEASE GIVE BOTH 5MG TABLETS AND [...]
--- OUTSIDE RECORDS SUMMARY | 2024-01-02 21:33 | XMS_ITS | Continuity of Care Document ---
Author Organization [facility] Address [address] [place] [address], [address] [place] [address]- Care Team Providers Care Gang Supervisor Name Role Phone Fuentes Garcia MD Primary Care Physician [phone] [facility] Date(s): 05/04/19 - 08/07/19 [facility] [address] [facility], 4[address] [place] [address]- Attending Physician: Not on Staff, Attending MD [...] H1N1, inactive(oldterm) 7 05/08/11 Given 1Result Comment: [id number] 2Result Comment: [07/08/2017] [id number] 3Admin Note: [facility] 4Admin Note: [facility] [...] Maintenance, 07/18/19 9:13:00 EST, [facility] - [address] [place] [address], 162, cm, 05/23/19 11:50:00 EDT, Height, 116.4, kg, 05/04/19 11:52:00 EDT, Dry Weight Start Date: 07/18/19 Stop Date: 07/19/19 Status: Ordered chlorthalidone 25 mg oral tablet 25 mg, 1, tablet, By Mouth, Daily, # 30 tablet, Refills 2, Tot. Refills 2, Maintenance, 06/17/19 14:30:22 EST, Route to Pharmacy Electronically, [facility] [id number], [facility] [address] [facility], please schedule appt for further refills Start Date: 06/17/19 Status: Ordered Claritin 10 mg oral tablet 10 mg, 1, tablet, By Mouth, Daily, for 30 days, # 30 tablet, Refills 11, Tot. Refills 11, Acute 05/11/20 17:36:41 EDT, 05/17/19 17:36:41 EDT, Route to Pharmacy Electronically, [id number], AMEENA REINOSO [address] Start Date: 05/17/19 Stop Date: 05/11/20 [...] mL, 5 Refills, Maintenance, 10/01/18 10:08:42 EST, [place], 2 sprays Nares, Both 2 times a [...] 12/08/18 12:09:04 EDT, Route to Pharmacy Electronically, [id number], [facility] [address] [facility] Start Date: 12/08/18 Status: Ordered [...] 1 tablet by mouth twice a day, [address] Start Date: 05/17/19 Status: Ordered penicillin [...] IF NEEDED FOR WHEEZING - REPLACES PROAIR, [address] Start Date: 01/24/19 Status: Ordered [...] use(Confirmed) Active Gastric banding status(Confirmed) Active 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
--- OUTSIDE RECORDS SUMMARY | 2024-01-02 21:33 | XMS_ITS | Continuity of Care Document ---
Author Organization [facility] Nolberto Address [address] [place] [address]- Care Team Providers Care Sewer Line Photo Inspector Name Role Phone Krishan GRIDER, Eulogio Molina Primary Care Physician [phone] Encounter [facility] Date(s): 04/21/22 - 05/21/22 [facility] Adult [address] [place] [address]- Allergies, Adverse Reactions, Alerts Substance Reaction Severity [...] vaccine, inactivated 05/10/07 Jarrett rded SARS-CoV-2 mRNA ([id number]) vax 08/30/21 Recorded SARS-CoV-2 (COVID-19) mRNA BNT-162b2 vac 01/02/21 Recorded SARS-CoV-2 (COVID-19) mRNA BNT-162b2 vac 12/02/20 Recorded Fluvirin (oldterm) 8 03/22/15 Given Fluzone Preservative-Free (oldterm) 9 03/12/12 Giv en pneumococcal 23-valent vaccine 10/08/11 Given tetanus/diphtheria/pertussis, acel(Tdap) 09/08/11 Given tetanus/diphtheria/pertussis, acel(Tdap) 12/17/06 Recorded influ virus vac, H1N1, inactive(oldterm) 10 05/08/11 Given hepatitis B adult vaccine 06/14/02 Recorded 1Result Comment: [id number] 2Result Comment: [id number] 3Result Comment: [id number] 4Result Comment: [id number] 5Result Comment: [07/08/2017] [id number] 6Admin Note: [facility] 7Admin Note: [facility] [...] Gm, 4 Refills, Maintenance, 04/28/22 13:11:00 EDT, [facility], 17, INHALE 2 PUFFS BY MOUTH EVERY FOUR HOURS NEEDED FOR WHEEZING... Start Date: 04/28/22 Status: Ordered cloNIDine 0.1 mg oral tablet See Instructions, TAKE 1 TABLET BY MOUTH TWICE A DAY NEEDED FOR FOR ANXIETY (VIAL), # 60 tablet,Refills 1, Maintenance, 04/28/22 13:11:00 EDT, Instructions Replace Required Details, Route to Pharmacy Electronically, [facility], 159, cm, 06... Start Date: 04/28/22 Status: Ordered colchicine 0.6 mg oral tablet 0.6 mg, 1, tablet, By Mouth, Daily, # 30 tablet, Refills 11, Tot. Refills 11, Maintenance, :00:00 EDT, Route to Pharmacy Electronically, [facility], Partial fill upon patient request [...] 01/11/22 7:25:00 EDT, Route to Pharmacy Electronically, [facility], Partial fill upon patient request if the prescri... Start Date: 01/11/22 Stop Date: 02/10/22 Status: Ordered duloxetine 20 mg oral enteric coated capsule 2 capsule = 40 mg, By Mouth, Daily at bedtime, # 60 capsule, 11 Refills, Maintenance, 06/25/21 12:00:00 EST, Capsule, [facility], Partial fill upon patient request [...] Required Details, Route to Pharmacy Electronically, [facility], 165, cm, 06/25/21 11:35:00 EST, Height, 127, kg, 02/03/20 14:39:00 EDT, Dry Weight Start Date: 08/05/21 Status: Ordered penicillin V potassium 250 mg oral tablet 1 tablet, By Mouth, 2 times a day, CELLULITIS PROPHYLAXIS., # 60 tablet, 6 Refills, [facility], 165, cm, 11/08/21 10:02:00 EDT, Height, 127, kg, 02/03/20 14:39:00 EDT, Dry Weight Start Date: 11/15/21 Status: Ordered rOPINIRole 0.5 mg oral tablet 1 tablet, By Mouth, 3 times a day, # 90 tablet, 5 Refills, 03/07/22 6:14:00 EDT, [facility], 159, cm, 01/11/22 15:15:00 EDT, Height, 98.8, kg, 01/10/22 9:12:00 EDT, Dry Weight Start Date: 03/07/22 Status: Ordered rosuvastatin 10 mg oral tablet See Instructions, TAKE 1 TABLET BY MOUTH DAILY, # 90 tablet, 1 Refills, Maintenance, 04/04/22 11:35:00 EDT, [facility], 159, cm, 01/11/22 15:15:00 EDT, Height, 98.8, kg, 01/10/22 9:12:00 EDT,Dry Weight Start Date: 04/04/22 Status: Ordered Symbicort 80mcg/4.5mcg Inhaler See Instructions, INHALE 2 PUFFS BY MOUTH TWICE A DAY RINSE MOUTH AND THROAT AFTER USE, # 10.2 Gm, Refills 5, Instructions Replace Required Details, Route to Pharmacy Electronically, [id number], [facility], 159, cm, 01/11/22 15:15:00 EDT... Start Date: 02/13/22 Status: Ordered warfarin 1 mg oral tablet See Instructions, Take 1-10 tablets By Mouth Daily as directed by NE[facility]ash, # 150 tablet, 0 Refills, Maintenance, 01/11/22 7:24:00 EDT, Tablet, [facility], Partial fill upon [...] Name: Krishan GRIDER, Eulogio Molina Address: Address: [address] [place] [id number]
--- OUTSIDE RECORDS SUMMARY | 2024-01-02 21:34 | XMS_ITS | Continuity of Care Document ---
Author Organization [facility] Nolberto Address [address] [place] [address]- Care Team Providers Care Hospitality Associate Name Role Phone Krishan GRIDER, Eulogio Molina Primary Care Physician [phone] [place] [facility] Date(s): 09/08/22 - 10/08/22 [facility] Adult [address] [place] [address]- Allergies, Adverse Reactions, Alerts Substance Reaction Severity [...] vaccine, inactivated 05/10/07 Jarrett rded SARS-CoV-2 mRNA ([id number]-gyvbj) vax 08/30/21 Recorded SARS-CoV-2 (COVID-19) mRNA BNT-162b2 vac 01/02/21 Recorded SARS-CoV-2 (COVID-19) mRNA BNT-162b2 vac 12/02/20 Recorded Fluvirin (oldterm) 8 03/22/15 Given Fluzone Preservative-Free (oldterm) 9 03/12/12 Giv en pneumococcal 23-valent vaccine 10/08/11 Given tetanus/diphtheria/pertussis, acel(Tdap) 09/08/11 Given tetanus/diphtheria/pertussis, acel(Tdap) 12/17/06 Recorded influ virus vac, H1N1, inactive(oldterm) 10 05/08/11 Given hepatitis B adult vaccine 06/14/02 Recorded 1Result Comment: [id number] 2Result Comment: [id number] 3Result Comment: [id number] 4Result Comment: [id number] 5Result Comment: [07/08/2017] [id number] 6Admin Note: [facility] 7Admin Note: [facility] [...] Gm, 4 Refills, Maintenance, 09/08/22 14:55:00 EST, [facility], 30, INHALE 2 PUFFS BY MOUTH EVERY FOUR HOURS NEEDED FOR WHEEZING... Start Date: 09/08/22 Status: Ordered cloNIDine 0.1 mg oral tablet 1, tablet, By Mouth, 2 times a day, PRN, # 56 tablet, Refills 2, Maintenance, NEEDED FOR FOR ANXIETY (VIAL) ^VIAL, 10/03/22 11:23:00 EST, Route to Pharmacy Electronically, [facility], 160,cm, 09/09/22 14:31:00 EST, Height, 98.8, kg, 07/17/... Start Date: 10/03/22 Status: Ordered colchicine 0.6 mg oral tablet 1, tablet, By Mouth, Daily, ^1R1., # 30 tablet, Refills 11, Maintenance, 09/10/22 5:31:00 EST, [facility], 160, cm, 09/09/22 14:31:00 EST, Height, 98.8, kg, 07/17/22 8:58:00 EST, Dry Weight Start Date: 09/10/22 Status: Ordered docusate sodium 100 mg oral capsule 100 mg, 1, capsule, By Mouth, 2 times a day, hold for loose stool, # 60 capsule, Refills 0, Tot. Refills 0, Maintenance, 01/11/22 7:25:00 EDT, Route to Pharmacy Electronically, [facility], Partial fill upon patient request if the prescri... Start Date: 01/11/22 Stop Date: 02/10/22 Status: Ordered duloxetine 20 mg oral enteric coated capsule 2 capsule = 40 mg, By Mouth, Daily at bedtime, # 60 capsule, 11 Refills, Maintenance, 06/25/21 12:00:00 EST, Capsule, [facility], Partial fill upon patient [...] 17:07:00 EST, [facility], 160, cm, 07/17/22 12:03:00 EST, Height, [...] 5 Refills, Maintenance, 07/29/22 6:50:00 EST, Tablet, [facility], Partial fill upon patient request if [...] tablet, 0 Refills, Maintenance, 09/04/22 16:29:00 EST, [facility], Partial fill upon patient request if the prescription is for a schedule II opioid drug., 160, cm, 09/04/22 16:17:00 EST, Height, 98.8, k... Start Date: 09/04/22 Status: Ordered rOPINIRole 0.5 mg oral tablet See Instructions, TAKE 1 TABLET BY MOUTH THREE TIMES DAILY^1R1,1R3,1R4, # 90 tablet, 5 Refills, Maintenance, 07/24/22 23:41:00 EST, [facility], 160, cm, 07/18/22 11:39:00 EST, Height, 98.8, kg, 07/17/22 8:58:00 EST, Dry Weight Start Date: 07/24/22 Status: Ordered rosuvastatin 10 mg oral tablet 1 tablet, By Mouth, Daily, ^1R1., # 30 tablet, 5 Refills, Maintenance, 09/10/22 5:31:00 EST, [facility], 160, cm, 09/09/22 14:31:00 EST, Height, 98.8, kg, 07/17/22 8:58:00 EST, Dry Weight Start Date: 09/10/22 Status: Ordered Symbicort 80mcg/4.5mcg Inhaler See Instructions, INHALE 2 PUFFS BY MOUTH TWICE A DAY RINSE MOUTH AND THROAT AFTER USE, # 10.2 Gm, Refills 5, Maintenance, 07/30/22 21:16:00 EST, Instructions Replace Required Details, Route to Pharmacy Electronically, [id number], [facility]... 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 [...] Team Personnel Name: Sandra Wills NP Position: [facility] PCO Associate Professional Member Role: Primary Care Nurse Address: Address: [address] [place] [address] [place] [address]- [place] Name: Marley Alejo RN Position: [facility] RN Member Role: Primary Care Nurse Name: Eulogio Nickerson MD Position: [facility] Primary Care Physician Member Role: PCP Address: Address: [address] [place] [id number]- [place] Name: Alma Delia Fonseca PharmD Position: [facility] Associate Professional Member Role: Lifetime Consulting Provider Address: Address: [address] [place] [address] [place] [address]- [place] Name: Yolis Mattson RN Position: [facility] RN Member Role: Primary Care Nurse Name: Priscila Garzon RN Position: [facility] RN Member Role: Primary Care Nurse Name: Renea Mart RN Position: S RN Member Role: Primary Care Nurse Care Team Related Persons Name: FAUZIA JANSEN Address: home [address] [place] [address] Name: AURELIA SHETH Address: [address] [place] [address] Name: BRE OSORIO Address: home [address] [place] [address]
--- OUTSIDE RECORDS SUMMARY | 2024-01-02 21:34 | XMS_ITS | Continuity of Care Document ---
Author Organization [facility] Buck Nolberto Address [address] [place] [address]- Care Team Providers Care Mail List Librarian Name Role Phone Fuentes Garcia MD Primary Care Physician [phone] [facility] - 02/04/20 [facility] Adult [address] [place] [address]- [facility] Attending Physician: Fuentes Garcia MD Allergies, Adverse [...] H1N1, inactive(oldterm) 7 05/08/11 Given 1Result Comment: [id number] 2Result Comment: [07/08/2017] [id number] 3Admin Note: [facility] 4Admin Note: [facility] [...] 12/06/19 9:16:00 EDT, Route to Pharmacy Electronically, [facility] #[id number], please schedule appt for further refills, 162, cm, 09/21/19 12:01:00 ESTLaurie... Start Date: 12/06/19 Status: Ordered Claritin 10 mg oral tablet 10 mg, 1, tablet, By Mouth, Daily, for 30 days, # 30 tablet, Refills 11, Tot. Refills 11, Acute 05/11/20 17:36:41 EDT, 05/17/19 17:36:41 EDT, Route to Pharmacy Electronically, [id number], [facility] - [address] [place] [address] Start Date: 05/17/19 Stop Date: 05/11/20 Status: Ordered colchicine 0.6 mg oral tablet See Instructions, take 1 tablet by mouth once daily if needed for PSEUDOGOUT pain, # 30 tablet, Refills 5, Tot. Refills 5, Soft Stop, 01/05/20 8:41:00 EDT, Instructions Replace Required Details, Route to Pharmacy Electronically, [facility] #... Start Date: 01/05/20 Status: Ordered [...] Gm, 1 Refills, Maintenance, 12/20/19 16:30:00 EDT, [facility] #[id number], 162, cm, 09/21/19 12:01:00 EST, Height, 116.4, [...] mL, 5 Refills, Maintenance, 10/01/18 10:08:42 EST, [place], 2 sprays Nares, Both 2 times a [...] 09/28/19 11:53:00 EST, Route to Pharmacy Electronically, [facility] #[id number], 162, cm, 09/21/2011:01:00 EST, Height, 116.4, kg, [...] 0 Refills, Maintenance, 01/30/20 17:23:00 EDT, Tablet, [facility] #[id number], 02/02/20, 165, cm, 01/16/20 6:17:00 EDT, Hei... 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
--- OUTSIDE RECORDS SUMMARY | 2024-01-02 21:34 | XMS_ITS | Continuity of Care Document ---
Author Organization [facility] Address [address] [place] [address], [address] [place] [address]- Care Team Providers Care Tear Down Worker Name Role Phone Krishan GRIDER, Eulogio Molina Primary Care Physician [facility] Date[facility]s): 07/14/22 - 08/13/22 [facility] [address] [place] [address], [address] [place] [address]- Allergies, Adverse Reactions, Alerts Substance Reaction Severity [...] vaccine, inactivated 05/10/07 Jarrett rded SARS-CoV-2 mRNA ([id number]) vax 08/30/21 Recorded SARS-CoV-2 (COVID-19) mRNA BNT-162b2 vac 01/02/21 Recorded SARS-CoV-2 (COVID-19) mRNA BNT-162b2 vac 12/02/20 Recorded Fluvirin (oldterm) 8 03/22/15 Given Fluzone Preservative-Free (oldterm) 9 03/12/12 Giv en pneumococcal 23-valent vaccine 10/08/11 Given tetanus/diphtheria/pertussis, acel(Tdap) 09/08/11 Given tetanus/diphtheria/pertussis, acel(Tdap) 12/17/06 Recorded influ virus vac, H1N1, inactive(oldterm) 10 05/08/11 Given hepatitis B adult vaccine 06/14/02 Recorded 1Result Comment: [id number] 2Result Comment: [id number] 3Result Comment: [id number] 4Result Comment: [id number] 5Result Comment: [07/08/2017] [id number] 6Admin Note: [facility] 7Admin Note: [facility] [...] Gm, 4 Refills, Maintenance, 04/28/22 13:11:00 EDT, [facility], 17, INHALE 2 PUFFS [...] breakfast and dinne, PRN, Refills 0, Maintenance,Anxiety, 12/23/22 8:56:00 EST, Partial fill upon patient request if the prescription is for a schedule II opioid drug. Start Date: 07/18/22 Status: Ordered colchicine 0.6 mg oral tablet 0.6 mg, 1, tablet, By Mouth, Daily, # 30 tablet, Refills 11, Tot. Refills 11, Maintenance, :00:00 EDT, Route to Pharmacy Electronically, [facility], Partial fill upon patient request if the prescription is for a schedule II opioid dr... Start Date: 10/30/21 Status: Ordered docusate sodium 100 mg oral capsule 100 mg, 1, capsule, By Mouth, 2 times a day, hold for loose stool, # 60 capsule, Refills 0, Tot. Refills 0, Maintenance, 01/11/22 7:25:00 EDT, Route to Pharmacy Electronically, [facility], Partial fill upon patient request if the prescri... Start Date: 01/11/22 Stop Date: 02/10/22 Status: Ordered duloxetine 20 mg oral enteric coated capsule 2 capsule = 40 mg, By Mouth, Daily at bedtime, # 60 capsule, 11 Refills, Maintenance, 06/25/21 12:00:00 EST, Capsule, [facility], Partial fill upon patient [...] 07/17/22 17:07:00 EST, Route to Pharmacy Electronically, [facility], 160, cm, 07/17/22 12:03:00 [...] 5 Refills, Maintenance, 07/29/22 6:50:00 EST, Tablet, [facility], Partial fill upon patient [...] tablet, 5 Refills, Maintenance, 07/24/22 23:41:00 EST, [facility], 160, cm, 07/18/22 11:39:00 EST, Height, [...] Gm, 5 Refills, Maintenance, 07/17/22 11:09:00 EST, [facility], 160, cm, 07/17/22 8:49:00 EST, Height, 98.8, kg, 07/17/22 8:58:00 EST, Dry Weight Start Date: 07/17/22 Status: Ordered Symbicort 80mcg/4.5mcg Inhaler See Instructions, INHALE 2 PUFFS BY MOUTH TWICE A DAY RINSE MOUTH AND THROAT AFTER USE, # 10.2 Gm, Refills 5, Maintenance, 07/30/22 21:16:00 EST, Instructions Replace Required Details, Route to Pharmacy Electronically, [facility]DP[id number], [facility]... Start Date: 07/30/22 Status: Ordered warfarin 1 mg oral tablet See Instructions, Take 1-10 tabs daily as directed by [facility]., # 150 tablet, 0 Refills, Maintenance, 07/18/22 8:55:00 EST, Tablet, [facility], Partial fill upon patient [...] Member Role: Primary Care Nurse Address: Address: [address] [place] [address] [place] [address]- Name: Marley Alejo RN Position: [facility] RN Member Role: Primary Care Nurse Name: Eulogio Nickerson MD Position: [facility] Primary Care Physician Member Role: PCP Address: Address: [address] [place] [address]- [place] Name: Alma Delia Fonseca PharmD Position: [facility] Associate Professional Member Role: Lifetime Consulting Provider Address: Address: [address] [place] [address]- Name: Yolis Mattson RN Position: [facility] RN Member Role: Primary Care Nurse Name: Priscila Garzon RN Position: [facility] RN Member Role: Primary Care Nurse Name: Renea Mart RN Position: [facility] RN Member Role: Primary Care Nurse Care Team Related Persons Name: FAUZIA JANSEN Address: home [address] [place] [address] Name: AURELIA SHETH Address: [address] [place] [address] Name: BRE OSORIO Address: home [address] [place] [address]
--- OUTSIDE RECORDS SUMMARY | 2024-01-02 21:34 | XMS_ITS | Continuity of Care Document ---
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 Name Role Phone Kyle Ahumada DO Primary Care Physician Encounter [facility] Date(s): 02/18/23 - 03/20/23 [facility] Robin Bolañosley Adult [address] [place] [address]- Allergies, Adverse Reactions, Alerts Substance Reaction Severity [...] vaccine, inactivated 05/10/07 Jarrett rded SARS-CoV-2 mRNA ([id number]) vax 08/30/21 Recorded SARS-CoV-2 (COVID-19) mRNA BNT-162b2 vac 01/02/21 Recorded SARS-CoV-2 (COVID-19) mRNA BNT-162b2 vac 5/9/21 Recorded Fluvirin (oldterm) 8 03/22/15 Given Fluzone Preservative-Free (oldterm) 9 03/12/12 Giv en pneumococcal 23-valent vaccine 10/08/11 Given tetanus/diphtheria/pertussis, acel(Tdap) 09/08/11 Given tetanus/diphtheria/pertussis, acel(Tdap) 12/17/06 Recorded influ virus vac, H1N1, inactive(oldterm) 10 05/08/11 Given hepatitis B adult vaccine 06/14/02 Recorded 1Result Comment: [id number] 2Result Comment: [id number] 3Result Comment: [id number] 4Result Comment: [id number] 5Result Comment: [07/08/2017] [id number] 6Admin Note: [facility] 7Admin Note: [facility] 04-08 8Admin Note: Given at [facility] 9Admin Note: 03-11-12 GIVEN AT [facility] 10Admin Note: rcvd elsewhere Medications acetaminophen 325 mg oral tablet 650 mg, 2, tablet, By Mouth, Every 6 hours, PRN, # 100 tablet, Refills 1, Tot. Refills 1, Maintenance, Pain , Moderate, 03/13/23 16:59:00 EDT, Route to Pharmacy Electronically, [facility], Partial fill upon patient request if the prescription... Start Date: 03/13/23 Status: Ordered Albuterol (Eqv-ProAir HFA) 90 mcg/inh inhalation aerosol See Instructions, INHALE 2 PUFFS BY MOUTH EVERY FOUR HOURS NEEDED FOR WHEEZING OR SHORTNESS OF BREATH, # 8.5 Gm, 5 Refills, Maintenance, 03/13/23 9:55:00 EDT, [facility], 30, INHALE 2 PUFFS [...] 03/12/23 15:30:00 EDT, Route to Pharmacy Electronically, [facility], 160, cm, 03/02/23 9:56:00 EDT, Height, 98.8, k... Start Date: 03/12/23 Status: Ordered cloNIDine 0.1 mg oral tablet 0.1 mg, 1, tablet, By Mouth, 2 times a day, PRN, # 60 tablet, Refills 2, Tot. Refills 2, Maintenance, Anxiety, 03/12/23 16:38:00 EDT, Route to Pharmacy Electronically, [facility], Partial fill upon patient request if the prescription is for a... Start Date: 03/12/23 Status: Ordered cyclobenzaprine 5 mg oral tablet 1 tablet = 5 mg, By Mouth, 3 times a day, # 45 tablet, 1 Refills, Maintenance, 03/03/23 9:27:00 EDT, Tablet, [facility], Partial fill upon patient request if the prescription is for a schedule II opioid drug., 160, cm, 03/02/23 9:56:00 EDT, He... Start Date: 03/03/23 Status: Ordered DilTIAZem (Eqv-Dilacor XR) 240 mg/24 hours oral capsule, extended release 1 capsule = 240 mg, By Mouth, Daily, # 90 capsule, 3 Refills, Maintenance, 03/13/23 17:04:00 EDT, CD Capsule, [facility], Partial fill upon patient request if the prescription is for a schedule II opioid drug., 160, cm, 03/02/23 9:56:00 EDT, H... Start Date: 03/13/23 Status: Ordered docusate sodium 100 mg oral capsule 100 mg, 1, capsule, By Mouth, 2 times a day, hold for loose stool, # 180 capsule, Refills 3, Tot. Refills 3, Maintenance, 03/13/23 16:56:00 EDT, Route to Pharmacy Electronically, [facility], Partial fill upon patient request if the prescriptio... Start Date: 03/13/23 Stop Date: 04/12/23 Status: Ordered duloxetine 20 mg oral enteric coated capsule 2 capsule = 40 mg, By Mouth, Daily at bedtime, # 60 capsule, 11 Refills, Maintenance, 06/25/21 12:00:00 EST, Capsule, [facility], Partial fill upon patient request if [...] 03/02/23 18:12:00 EDT, Route to Pharmacy Electronically, [facility], Partial fill upon patient request if the prescription is for a schedule II opioid drug... Start Date: 03/02/23 Status: Ordered ipratropium nasal 21 mcg/inh spray 2 sprays = 42 mcg, Nares, Both, 2 times a day, # 30 mL, 5 Refills, Maintenance, 03/13/23 16:58:00 EDT, [place], [facility], Partial fill upon patient request if [...] 02/07/23 18:12:00 EDT, Route to Pharmacy Electronically, [facility], 160, cm, 12/16/22 10:46:00 EDT, Height, [...] 3 Refills, Maintenance, 03/13/23 17:03:00 EDT, Patch, [facility], Partial fill upon patient request if the prescription is for a schedule II opioid drug., 1 patch Topically Daily, 160, cm, 03/02/23 9:56:0... Start Date: 03/13/23 Status: Ordered penicillin V potassium 250 mg oral tablet 1 tablet = 250 mg, By Mouth, 2 times a day, CELLULITIS PROPHYLAXIS, # 60 tablet, 5 Refills, Maintenance, 11/06/22 17:25:00 EDT, Tablet, [facility], Partial fill upon patient request if the prescription is for a schedule II opioid drug., 160, c... Start Date: 11/06/22 Stop Date: 05/05/23 Status: Ordered rOPINIRole 0.5 mg oral tablet 1 tablet, By Mouth, 3 times a day, ^1R1,1R3,1R4., # 90 tablet, 5 Refills, Maintenance, 12/24/22 14:21:00 EDT, [facility], 160, cm, 12/16/22 10:46:00 EDT, Height, 98.8, kg, 07/17/22 8:58:00 EST, Dry Weight Start Date: 12/24/22 Status: Ordered rosuvastatin 10 mg oral tablet 1 tablet, By Mouth, Daily, ^1R1., # 30 tablet, 5 Refills, Maintenance, 02/07/23 18:12:00 EDT, [facility], 160, cm, 12/16/22 10:46:00 EDT, Height, 98.8, kg, 07/17/22 8:58:00 EST, Dry Weight Start Date: 02/07/23 Status: Ordered Symbicort 80mcg/4.5mcg Inhaler See Instructions, INHALE 2 PUFFS BY MOUTH TWICE A DAY RINSE MOUTH AND THROAT AFTER USE, # 10.2 Gm, Refills 5, Tot. Refills 5, Maintenance, 03/13/23 10:13:00 EDT, Instructions Replace Required Details, Route to Pharmacy Electronically, NCP_[id number]... 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 Confirmed [...] Role: Primary Care Nurse Address: Address: [address] [facility] [place] [address]- [place] Name: Marley Alejo RN Position: [facility] RN Member Role: Primary Care Nurse Name: Alma Delia Fonseca PharmD Position: [facility] Associate Professional Member Role: Lifetime Consulting Provider Address: Address: [address] [facility] [place] [address]- [place] Name: Yolis Mattson RN Position: [facility] RN Member Role: Primary Care Nurse Name: Priscila Garzon RN Position: [facility] RN Member Role: Primary Care Nurse Name: Kyle Ahumada DO Position: [facility] Physician - Primary Care Member Role: PCP Address: Address: [address] [place] [address]- [place] Name: Renea Mart RN Position: [facility] RN Member Role: Primary Care Nurse Care Team Related Persons Name: FAUZIA JANSEN Address: home [address] [place] [address] Name: AURELIA SHETH Address: [address] [place] [address] Name: BRE OSORIO Address: home [address] [place] [address]
--- OUTSIDE RECORDS SUMMARY | 2024-01-02 21:34 | XMS_ITS | Continuity of Care Document ---
Author Organization [facility] Robin Jane Nolberto lt Address [address] [place] [address]- Care Team Providers Care Electrical Project Manager Name Role Phone Radha GRIDER, Fuentes Kenny Primary Care Physician [phone] [facility] 06[facility]20 - 07/05/20 [facility] Adult [address] [place] [address]- Allergies, Adverse Reactions, Alerts Substance Reaction Severity [...] H1N1, inactive(oldterm) 8 05/08/11 Given 1Result Comment: [id number] 2Result Comment: [id number] 3Result Comment: [07/08/2017] [id number] 4Admin Note: [facility] 5Admin Note: [facility] - 6Admin Note: Given at [facility] 7Admin Note: 03-11-12 GIVEN AT [facility] 8Admin Note: rcvd elsewhere Medications Acetaminophen = 650 mg, By Mouth, Every 4 hours, PRN Pain , Mild, 0 Refills, Maintenance, 06/09/14 2:27:05 Start Date: 06/09/14 Status: Ordered Bactrim DS 800 mg-160 mg oral tablet 1 tablet, By Mouth, 2 times a day, drink plenty of fluids, # 20 tablet, 0 Refills, Maintenance, 07/04/20 14:32:00 EST, [facility] #[id number], 1 tablet By Mouth 2 times a day,Instr:drink plenty of fluids, 165, cm, 06/07/20 13:52:00 EST, Height, 1... Start Date: 07/04/20 Status: Ordered BiPAP Equipment AutoBiPAP max IPAP 15, min EPAP 6, PS 5 and 1 liter of 02 while sleeping, Maintenance, 12/26/17 13:44:20 EDT, Compound Start Date: 12/26/17 Status: Ordered calcipotriene 0.005% topical cream 1 application, Topically, 2 times a day, # 60 Gm, 5 Refills, Maintenance, 07/03/20 9:16:00 EST, Cream, [facility] #[id number], Partial fill upon patient request if the [...] 06/04/20 12:56:00 EST, Route to Pharmacy Electronically, [facility] #[id number], please schedule appt for further refills, 165, cm, 05/16/20 14:15:00 EDT, Hei... Start Date: 06/04/20 Status: Ordered colchicine 0.6 mg oral tablet See Instructions, take 1 tablet by mouth once daily if needed for PSEUDOGOUT pain, # 30 tablet, Refills 5, Tot. Refills 5, Soft Stop, 01/05/20 8:41:00 EDT, Instructions Replace Required Details, Route to Pharmacy Electronically, [facility] #... Start Date: 01/05/20 Status: Ordered [...] Gm, 3 Refills, Maintenance, 06/22/20 14:58:00 EST, [facility] #[id number], 165, cm, 06/07/20 13:52:00 EST, Height, 127, [...] mL, 5 Refills, Maintenance, 10/01/18 10:08:42 EST, [place], 2 sprays Nares, Both 2 times a [...] 03/22/20 16:34:00 EDT, Route to Pharmacy Electronically, [facility] #[id number], 165, cm, 02/02/2014:39:00 EDT, Height, 127, kg, [...] 0 Refills, Maintenance, 06/18/20 16:57:00 EST, Patch, [facility] #[id number], Partial fill upon patient request, 165, cm, 06/07/20 13:52:00 EST, Height, 127, kg, 02/03/20 14:39:00 EDT, Dry Weight Start Date: 06/18/20 Stop Date: 07/30/20 Status: Ordered NuLYTELY with Flavor Packs oral powder for reconstitution See Instructions, Drink 240mL every 15-20 minutes until first half is gone. Repeat 6 hours prior toprocedure., # 4,000 mL, 0 Refills, Maintenance, 06/28/20 17:09:00 EST, [facility] #[id number],Partial fill upon patient request if the prescript... Start Date: 06/28/20 Status: Ordered oxyCODONE 10 mg oral tablet 1 tablet = 10 mg, By Mouth, Every 8 hours, DX Z79.891 G89.29 M47.816 OK TO FILL LESS THAN PRESCRIBED AMOUNT, # 84 tablet, 0 Refills, Maintenance, 06/18/20 12:44:00 EST, Tablet, [facility] #[id number], 06/19/20, 165, cm, 06/07/20 13:52:00 EST, He... [...] 5 Refills, Maintenance, 04/30/20 15:13:00 EDT, Tablet, [facility] #[id number], 165, cm, 04/30/20 14:30:00 EDT, Height, 127, kg, 02/03/20 14:39:00 EDT, Dry Weight Start Date: 04/30/20 Status: Ordered rosuvastatin 10 mg oral tablet 1 tablet = 10 mg, By Mouth, Daily, # 90 tablet, 3 Refills, Maintenance, 05/03/20 16:35:00 EDT, Tablet, [facility] #[id number], d/c rx for capsules, 165, cm, 04/30/20 14:30:00 EDT, Height, 127, kg, 02/03/20 14:39:00 EDT, Dry Weight Start Date: 05/03/20 Status: Ordered Ventolin HFA 108 mcg/inh inhalation aerosol with adapter 2 puffs, Inhalation, Every 4 hours, PRN Wheezing/Shortness of Breath, # 1 each, 11 Refills, Soft Stop, 01/19/20 11:46:00 EDT, [facility] #[id number], 165, cm, 01/16/20 6:17:00 EDT, Height, 128.1, kg, 01/16/20 6:17:00 EDT, Dry Weight Start Date: 01/19/20 Status: Ordered warfarin 5 mg oral tablet 1 tablet = 5 mg, By Mouth, Daily, dosing subject to change pending inr lab values, # 30 tablet, 5 Refills, Maintenance, 02/15/20 13:21:00 EDT, Tablet, [facility] #[id number], 165, cm, 02/03/20 14:39:00 EDT, Height, 127, [...]
--- OUTSIDE RECORDS SUMMARY | 2024-01-02 21:34 | XMS_ITS | Continuity of Care Document ---
Author Organization [facility] Robin Jane Nolberto lt Address [address] [place] [address]- Care Team Providers Care Spinner Cap Frame Name Role Phone Fuentes Garcia MD Primary Care Physician [facility]counter [facility] Date(s): 07/31/20 - 08/07/20 [facility] Adult [address] [place] [address]- Encounter Diagnosis Recurrent cystitis(Discharge Diagnosis) - 07/31/20 Attending Physician: Fuentes Garcia MD Allergies, Adverse [...] H1N1, inactive(oldterm) 8 05/08/11 Given 1Result Comment: [id number] 2Result Comment: [id number] 3Result Comment: [07/08/2017] 50096-559-56 4Admin Note: [facility] 5Admin Note: [facility] [...] 5 Refills, Maintenance, 07/03/20 9:16:00 EST, Cream, [id number], Partial fill upon patient request if the [...] 06/04/20 12:56:00 EST, Route to Pharmacy Electronically, [facility] #[id number], please schedule appt for further refills, 165, cm, 05/16/20 14:15:00 EDT, Hei... Start Date: 06/04/20 Status: Ordered Claritin 10 mg oral tablet 10 mg, 1, tablet, By Mouth, Daily, for 90 days, # 90 tablet, Refills 3, Tot. Refills 3, Acute 07/28/21 15:22:00 EST, 08/02/20 15:22:00 EST, Route to Pharmacy Electronically, [facility] #[id number], 165, cm, 07/31/20 14:32:00 EST, Height, 127, kg,... Start Date: 08/02/20 Stop Date: 07/28/21 Status: Ordered colchicine 0.6 mg oral tablet See Instructions, take 1 tablet by mouth once daily if needed for PSEUDOGOUT pain, # 30 tablet, Refills 5, Tot. Refills 5, Soft Stop, 01/05/20 8:41:00 EDT, Instructions Replace Required Details, Route to Pharmacy Electronically, [facility] #... Start Date: 01/05/20 Status: Ordered [...] Gm, 3 Refills, Maintenance, 06/22/20 14:58:00 EST, [facility] #[id number], 165, cm, 06/07/20 13:52:00 EST, Height, 127, [...] mL, 5 Refills, Maintenance, 10/01/18 10:08:42 EST, [place], 2 sprays Nares, Both 2 times a [...] 08/02/20 16:13:00 EST, Route to Pharmacy Electronically, [facility] #[id number], D/C RX ON FILE FOR ABRAM, 165, [...] 09/29/20 14:57:00 EST, 07/31/20 14:57:00 EST, Capsule, [facility] #[id number], Partial fill upon patient request if the prescription is for a schedule II opi... Start Date: 07/31/20 Stop Date: 09/29/20 Status: Ordered methenamine hippurate 1 gm oral tablet 1 tablet = 1 Gm, By Mouth, 2 times a day, # 60 tablet, 1 Refills, Maintenance, 07/12/20 13:56:00 EST, [facility] #[id number], Partial fill upon patient request if the prescription is for a schedule II opioid drug., 165, cm, 07/11/20 15:24:00 EST,... Start Date: 07/12/20 Stop Date: 07/05/21 Status: Ordered metoprolol 25 mg oral tablet 25 mg, 1, tablet, By Mouth, 2 times a day, # 60 tablet, Refills 5, Tot. Refills 5, Maintenance, 03/22/20 16:34:00 EDT, Route to Pharmacy Electronically, [facility] #[id number], 165, cm, 02/02/2014:39:00 EDT, Height, 127, kg, [...] 0 Refills, Maintenance, 06/18/20 16:57:00 EST, Patch, [facility] #[id number], Partial fill upon patient request, 165, cm, 06/07/20 13:52:00 EST, Height, 127, kg, 02/03/20 14:39:00 EDT, Dry Weight Start Date: 06/18/20 Stop Date: 1/4/21 Status: Ordered NuLYTELY with Flavor Packs oral powder for reconstitution See Instructions, Drink 240mL every 15-20 minutes until first half is gone. Repeat 6 hours prior toprocedure., # 4,000 mL, 0 Refills, Maintenance, 06/28/20 17:09:00 EST, [facility] #[id number],Partial fill upon patient request if the prescript... Start Date: 06/28/20 Status: Ordered oxyCODONE 10 mg oral tablet 1 tablet = 10 mg, By Mouth, Every 8 hours, DX Z79.891 G89.29 M47.816 OK TO FILL LESS THAN PRESCRIBED AMOUNT, # 84 tablet, 0 Refills, Maintenance, 07/16/20 17:18:00 EST, Tablet, [facility] #[id number], 07/17/20, 165, cm, 07/11/20 15:24:00 EST, He... [...] 5 Refills, Maintenance, 04/30/20 15:13:00 EDT, Tablet, [facility] #[id number], 165, cm, 04/30/20 14:30:00 EDT, Height, 127, kg, 02/03/20 14:39:00 EDT, Dry Weight Start Date: 04/30/20 Status: Ordered rosuvastatin 10 mg oral tablet 1 tablet = 10 mg, By Mouth, Daily, # 90 tablet, 3 Refills, Maintenance, 05/03/20 16:35:00 EDT, Tablet, [facility] #[id number], d/c rx for capsules, 165, cm, 04/30/20 14:30:00 EDT, Height, 127, kg, 02/03/20 14:39:00 EDT, Dry Weight Start Date: 05/03/20 Status: Ordered Ventolin HFA 108 mcg/inh inhalation aerosol with adapter 2 puffs, Inhalation, Every 4 hours, PRN Wheezing/Shortness of Breath, # 1 each, 11 Refills, Soft Stop, 01/19/20 11:46:00 EDT, [facility] #[id number], 165, cm, 01/16/20 6:17:00 EDT, Height, 128.1, kg, 01/16/20 6:17:00 EDT, Dry Weight Start Date: 01/19/20 Status: Ordered warfarin 5 mg oral tablet 1 tablet = 5 mg, By Mouth, Daily, dosing subject to change pending inr lab values, # 30 tablet, 5 Refills, Maintenance, 02/15/20 13:21:00 EDT, Tablet, [facility] #[id number], 165, cm, 02/03/20 14:39:00 EDT, Height, 127, [...] (degenerative joint dise ase), lumbar(Confirmed) 11/9/12 Active DVT - Deep vein thrombosis, post [...] Health Status Cl inical Service Informant Recurrent cystitis Discharge Diagnosis 07/31/20 Vital Signs Most recent to oldest [Reference Range]: 1 Height 165 cm (07/31/20 2:32 PM) Weight 127.2 kg (07/31/20 2:32 PM) Body Mass Index [18.5-24.99] 46.72 *>HHI* (07/31/20 2:32 PM) Weight Obtained Via Standing scale (07/31/20 2:32 PM) Social History Social History Type Response Smoking Status 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
--- OUTSIDE RECORDS SUMMARY | 2024-01-02 21:34 | XMS_ITS | Continuity of Care Document ---
Author Organization [facility] Robin Jane Nolberto Address [address] [place] [address]- Care Team Providers Care Skating Rink Manager Name Role Phone Kyle Ahumada DO Primary Care Physician Encounter [facility] Date(s): 06/03/23 - 09/02/23 [facility] Robin Bolañosley Adult [address] [place] [address]- Attending Physician: Kyle Ahumada DO Allergies, Adverse [...] vaccine, inactivated 05/10/07 Jarrett rded SARS-CoV-2 mRNA (lybnira-lvhu-yflcg) vax 08/30/21 Recorded SARS-CoV-2 (COVID-19) mRNA BNT-162b2 vac 01/02/21 Recorded SARS-CoV-2 (COVID-19) mRNA BNT-162b2 vac 12/02/20 Recorded Fluvirin (oldterm) 10 03/22/15 Given Fluzone Preservative-Free (oldterm) 11 03/12/12 Gi octavio pneumococcal 23-valent vaccine 10/08/11 Given tetanus/diphtheria/pertussis, acel(Tdap) 09/08/11 Given tetanus/diphtheria/pertussis, acel(Tdap) 12/17/06 Recorded influ virus vac, H1N1, inactive(oldterm) 12 05/08/11 Given hepatitis B adult vaccine 06/14/02 Recorded 1Result Comment: PCV 20 [facility]#[id number] 2Result Comment: Flu [facility]#[id number] 3Result Comment: [id number] 4Result Comment: [id number] 5Result Comment: [id number] 6Result Comment: [id number] 7Result Comment: [07/08/2017] [id number] 8Admin Note: [facility] 9Admin Note: [facility] 9-13 10Admin Note: Given at [facility] 11Admin Note: 03-11-12 GIVEN AT [facility] 12Admin Note: rcvd elsewhere Medications Albuterol (Eqv-ProAir HFA) 90 mcg/inh inhalation aerosol 2 puffs, Inhalation, Every 4 hours, PRN NEEDED FOR WHEEZING OR FOR SHORTNESS OF BREATH (BULK), #8.5 Gm, 5 Refills, Maintenance, 07/25/23 11:45:00 EST, [facility], 17, INHALE 2 PUFFS BY MOUTH EVERY 4 HOURS NEEDED FOR WHEEZING OR FOR SHOR... Start Date: 07/25/23 Status: Ordered cloNIDine 0.1 mg oral tablet 1, tablet, By Mouth, 2 times a day, PRN, ANXIETY (VIAL., # 56 tablet, Refills 2, Maintenance, NEEDED, 07/25/23 11:44:00 EST, Route to Pharmacy Electronically, [facility], 160, cm, 07/07/2315:02:00 EST, Height, 112.4, kg, 06/24/23 17:38:00... Start Date: 07/25/23 Status: Ordered cyclobenzaprine 5 mg oral tablet 1 tablet, By Mouth, 3 times a day, PRN NEEDED, SPASM (VIAL., # 90 tablet, 3 Refills, Maintenance, 08/19/23 10:07:00 EST, [facility], 160, cm, 07/07/23 15:02:00 EST, Height, 112.4, kg, 06/24/23 17:38:00 EST, Dry Weight Start Date: 08/19/23 Status: Ordered docusate sodium 100 mg oral capsule 100 mg, 1, capsule, By Mouth, 2 times a day, hold for loose stool, # 180 capsule, Refills 3, Tot. Refills 3, Maintenance, 03/13/23 16:56:00 EDT, [facility], Partial fill upon patient request if the prescriptio... Start Date: 03/13/23 Stop Date: 04/12/23 Status: Ordered duloxetine 20 mg oral enteric coated capsule 2 capsule = 40 mg, By Mouth, Daily at bedtime, # 60 capsule, 11 Refills, Maintenance, 06/25/21 12:00:00 EST, Capsule, [facility], [...] Details, Route to Pharmacy Electronically, [facility], 160, cm, 07/07/23 15:02:00 EST, Height,... Start Date: 07/28/23 Status: Ordered furosemide 40 mg oral tablet 40 mg, 1, tablet, By Mouth, Daily, # 90 tablet, Refills 1, Tot. Refills 1, Maintenance, 03/02/23 18:12:00 EDT, Route to Pharmacy Electronically, [facility], Partial fill upon patient request if [...] Refills, Maintenance, 08/11/23 7:46:00 EST, [facility], 30, INSTILL 2 SPRAYS IN [...] 07/01/23 14:32:00 EST, Route to Pharmacy Electronically, [facility], 160, cm, 06/26/23 11:21:00 EST, Height, 112.4, kg, 06/24/23 17:38:00 EST, Dry Weight Start Date: 07/01/23 Status: Ordered metFORMIN 500 mg oral tablet 1 tablet = 500 mg, By Mouth, 2 times a day, # 60 tablet, 5 Refills, Maintenance, 07/07/23 15:26:00 EST, Tablet, [facility], Partial fill upon patient request if the prescription is for a schedule II opioid drug., 160, cm, 07/07/23 15:02:00 EST... Start Date: 07/07/23 Stop Date: 01/03/24 Status: Ordered nicotine 21 mg/24 hr transdermal film, extended release 1 patch, Topically, Daily, # 30 patch, 3 Refills, Maintenance, 06/08/23 9:15:00 EST, [facility], 30, APPLY 1 PATCH TOPICALLY [...] tablet, 5 Refills, Maintenance, 08/19/23 10:06:00 EST, [facility], 160, cm, 07/07/23 15:02:00 EST, Height, 112.4, kg, 06/24/23 17:38:00 EST,Dry Weight Start Date: 08/19/23 Status: Ordered rOPINIRole 0.5 mg oral tablet 1 tablet, By Mouth, 3 times a day, ^1R1,1R3,1R4., # 90 tablet, 5 Refills, Maintenance, 05/09/23 20:56:00 EDT, [facility], 160, cm, 04/02/23 12:45:00 EDT, Height, 98.8, kg, 07/17/22 8:58:00 EST, Dry Weight Start Date: 05/09/23 Status: Ordered rosuvastatin 10 mg oral tablet 1 tablet, By Mouth, Daily, ^1R1., # 30 tablet, 5 Refills, Maintenance, 07/01/23 14:33:00 EST, [facility], 160, cm, 06/26/23 11:21:00 EST, Height, 112.4, kg, 06/24/23 17:38:00 EST, Dry Weight Start Date: 07/01/23 Status: Ordered Symbicort 160mcg/4.5mcg Inhaler 2, puffs, Inhalation, 2 times a day, # 10.2 Gm, Refills 11, Tot. Refills 11, Maintenance, 06/03/23 11:47:00 EST, Aerosol, Route to Pharmacy Electronically, [id number], [facility], 160, cm, 06/03/23 11:30:00 EST, Height, 98.8, kg, ... Start Date: 06/03/23 Status: Ordered Xarelto 20 mg oral tablet 1 tablet, By Mouth, Daily in PM, ^1R4., # 30 tablet, 5 Refills, Maintenance, 08/11/23 11:28:00 EST,[facility], 160, cm, 07/07/23 15:02:00 EST, Height, [...] Confirmed Active Gastric banding status Confirmed Active snf current use of opiate analgesic Confirmed Active [...] Team Personnel Name: Sandra Wills NP Position: [facility] PCO Associate Professional Member Role: Primary Care Nurse Address: Address: [address] [place] [address] [place] [address]- [place] Name: Marley Alejo RN Position: [facility] RN Member Role: Primary Care Nurse Name: Rashi Dewitt RN Position: [facility] RN Member Role: Primary Care Nurse Name: Alma Delia Fonseca PharmD Position: [facility] Associate Professional Member Role: Lifetime Consulting Provider Address: Address: [address] [place] [address] [place] [address]- [place] Name: Yolis Mattson RN Position: [facility] RN Member Role: Primary Care Nurse Name: Priscila Garzon RN Position: [facility] RN Member Role: Primary Care Nurse Name: Kyle Ahumada DO Position: [facility] Physician - Primary Care Member Role: PCP Address: Address: [address] [facility] [place] [address]- [place] Name: Renea Mart RN Position: [facility] RN Member Role: Primary Care Nurse Care Team Related Persons Name: AYDENYOHANNES FAUZIA Address: home [address] [place] [address] Name: AURELIA SHETH Address: home [address] [place] [address] Name: BRE OSORIO Address: home [address] [place] [address]
--- OUTSIDE RECORDS SUMMARY | 2024-01-02 21:34 | XMS_ITS | Continuity of Care Document ---
Author Organization [facility] ter Address [address] [place] [address]- Care Team Providers Care Utility Arborist Name Role Phone Krishan GRIDER, Eulogio Molina Primary Care Physician [phone] Encounter [facility] Date(s): 12/24/21 - 01/23/[address] [address] Attending Physician: Admtr, Ar8 Admitting Physician: Admtr, Ar8 Referring Physician: Admtr, Ar8 Allergies, Adverse Reactions, Alerts Substance Reaction Severity Status Adhesive Bandage Active Dust copd exac/sinus congestion A ctive Immunizations Given and Recorded Vaccine Date Status Refusal Reason SARS-CoV-2 mRNA (rxbvsrw-rqtp-zrpse) vax 08/30/21 Recorded influenza virus vaccine, inactivated [...] B adult vaccine 06/14/02 Recorded 1Result Comment: [id number] 2Result Comment: [id number] 3Result Comment: [id number] 4Result Comment: [07/08/2017] [id number] 5Admin Note: [facility] 6Admin Note: [facility] [...] 8.5 Gm, 5 Refills, 05/29/21 17:13:00 EDT, [id number], 17, INHALE 2 PUFFS BY MOUTH EVERY [...] 0 Refills, Maintenance, 01/11/22 7:25:00 EDT, Capsule, [facility], Partial fill upon patient request if the prescription is for a schedule II opioid drug., 159, cm, 01/11/22 6:35:0... Start Date: 01/11/22 Stop Date: 02/10/22 Status: Ordered cloNIDine 0.1 mg oral tablet See Instructions, TAKE 1 TABLET BY MOUTH TWICE A DAY NEEDED FOR FOR ANXIETY, # 60 tablet, Refills 0, Instructions Replace Required Details, Route to Pharmacy Electronically, [facility], 165, cm, 01/06/22 14:35:00 EDT, Height, 102.1, kg, ... Start Date: 01/09/22 Status: Ordered colchicine 0.6 mg oral tablet 0.6 mg, 1, tablet, By Mouth, Daily, # 30 tablet, Refills 11, Tot. Refills 11, Maintenance, :00:00 EDT, Route to Pharmacy Electronically, [facility], Partial fill upon patient request if [...] 01/11/22 7:25:00 EDT, Route to Pharmacy Electronically, [id number], Partial fill upon patient request if the prescri... Start Date: 01/11/22 Stop Date: 02/10/22 Status: Ordered duloxetine 20 mg oral enteric coated capsule 2 capsule = 40 mg, By Mouth, Daily at bedtime, # 60 capsule, 11 Refills, Maintenance, 06/25/21 12:00:00 EST, Capsule, [facility], Partial fill upon patient request if [...] Replace Required Details, Route to Pharmacy Electronically, [facility], 165, cm, 06/25/21 11:35:00 EST, Height, [...] 12/11/21 13:41:00 EDT, Route to Pharmacy Electronically, [facility], Partial fill upon patient requestif the [...] 03/05/22 16:36:00 EDT, 12/03/21 16:35:00 EDT, Gum, [facility] #[id number], Partial fill uponpatient request if the prescription [...] CELLULITIS PROPHYLAXIS., # 60 tablet, 6 Refills, [facility], 165, cm, 11/08/21 10:02:00 EDT, Height, 127, kg, 02/03/20 14:39:00 EDT, Dry Weight Start Date: 11/15/21 Status: Ordered rOPINIRole 0.5 mg oral tablet 1 tablet, By Mouth, 3 times a day, # 90 tablet, 5 Refills, 11/08/21 9:01:00 EDT, [facility], 165, cm, 11/04/21 8:42:00 EDT, Height, 127, kg, 02/03/20 14:39:00 EDT, Dry Weight Start Date: 11/08/21 Status: Ordered rosuvastatin 10 mg oral tablet See Instructions, TAKE 1 TABLET BY MOUTH DAILY, # 90 tablet, 1 Refills, Maintenance, 10/18/21 21:30:00 EDT, [facility], 165, cm, 09/04/21 14:01:00 EST, Height, [...] 0 Refills, Maintenance, 01/11/22 7:24:00 EDT, Tablet, [facility], Partial fill upon patient requestif [...]
--- OUTSIDE RECORDS SUMMARY | 2024-01-02 21:34 | XMS_ITS | Continuity of Care Document ---
Author Organization [facility] Address [address] [place] [address], [address] [place] [address]- Care Team Providers Care Lithographic Press Feeder Name Role Phone Fuentes Garcia MD Primary Care Physician Encounter [facility] Date(s): 09/12/19 - 12/28/19 [facility] [address] [facility] [place] [address]- [facility] Attending Physician: Rocio Perez MD Admitting [...] H1N1, inactive(oldterm) 7 05/08/11 Given 1Result Comment: [id number] 2Result Comment: [07/08/2017] [id number] 3Admin Note: [facility] 4Admin Note: [facility] 9-13 5Admin Note: Given at [facility] 6Admin Note: 12 GIVEN AT [facility] 7Admin Note: rcvd [...] 12/06/19 9:16:00 EDT, Route to Pharmacy Electronically, [facility] #[id number], please schedule appt for further refills, 162, cm, 09/21/19 12:01:00 Tc SPAIN Start Date: 12/06/19 Status: Ordered Claritin 10 mg oral tablet 10 mg, 1, tablet, By Mouth, Daily, for 30 days, # 30 tablet, Refills 11, Tot. Refills 11, Acute 05/11/20 17:36:41 EDT, 05/17/19 17:36:41 EDT, Route to Pharmacy Electronically, [id number], [facility] [address] [facility] Start Date: 05/17/19 Stop Date: 05/11/20 [...] Gm, 1 Refills, Maintenance, 12/20/19 16:30:00 EDT, [facility] #[id number], 162, cm, 09/21/19 12:01:00 EST, Height, 116.4, [...] mL, 5 Refills, Maintenance, 10/01/18 10:08:42 EST, [place], 2 sprays Nares, Both 2 times a [...] 09/28/19 11:53:00 EST, Route to Pharmacy Electronically, [facility] #[id number], 162, cm, 09/21/2011:01:00 EST, Height, 116.4, kg, [...] Refills, Maintenance, 12/05/19 17:35:00 EDT, Tablet, [id number], 162, cm, 09/21/19 12:01:00 EST, Height, 116.4, kg... Start Date: 12/05/19 Status: Ordered OYSTER SHELL SHARIF-VIT D 500-400 See Instructions, # 300 tablet, take 1 tablet by mouth twice a day, [facility] [address] [facility] Start Date: 05/17/19 Status: Ordered penicillin [...] Deep vein thrombosis, post surgical 2010, left leg(Confirmed) Active Essential tremor(Confirmed) Active Fibromyalgia(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
--- OUTSIDE RECORDS SUMMARY | 2024-01-02 21:34 | XMS_ITS | Continuity of Care Document ---
Author Organization [facility] Robin Jane Nolberto Address [address] [place] [address]- Care Team Providers Care Senior Net Architect Name Role Phone Kyle Ahumada DO Primary Care Physician [place] [facility] [place]23 [place] 05/14/23 [facility] Adult [address] [place] [address]- Allergies, Adverse Reactions, Alerts Substance Reaction Severity [...] vaccine, inactivated 05/10/07 Jarrett rded SARS-CoV-2 mRNA (qbirylo-kxga-uzhrb) vax 08/30/21 Recorded SARS-CoV-2 (COVID-19) mRNA BNT-162b2 vac 01/02/21 Recorded SARS-CoV-2 (COVID-19) mRNA BNT-162b2 vac 5/9/21 Recorded Fluvirin (oldterm) 8 03/22/15 Given Fluzone Preservative-Free (oldterm) 9 03/12/12 Giv en pneumococcal 23-valent vaccine 10/08/11 Given tetanus/diphtheria/pertussis, acel(Tdap) 09/08/11 Given tetanus/diphtheria/pertussis, acel(Tdap) 12/17/06 Recorded influ virus vac, H1N1, inactive(oldterm) 10 05/08/11 Given hepatitis B adult vaccine 06/14/02 Recorded 1Result Comment: [id number] 2Result Comment: [id number] 3Result Comment: [id number] 4Result Comment: [id number] 5Result Comment: [07/08/2017] 78603-171-96 6Admin Note: [facility] 7Admin Note: [facility] 04-08 8Admin Note: Given at [facility] 9Admin Note: 03-11-12 GIVEN AT [facility] 10Admin Note: rcvd elsewhere Medications acetaminophen 325 mg oral tablet 2, tablet, By Mouth, Every 6 hours, PRN, # 100 tablet, Refills 5, Maintenance, NEEDED FOR MODERATE PAIN (VIAL), 04/23/23 12:55:00 EDT, Route to Pharmacy Electronically, [facility], 160, cm, 04/02/23 12:45:00 EDT, Height, 98.8, kg, 07/17/22... Start Date: 04/23/23 Status: Ordered Albuterol (Eqv-ProAir HFA) 90 mcg/inh inhalation aerosol See Instructions, INHALE 2 PUFFS BY MOUTH EVERY FOUR HOURS NEEDED FOR WHEEZING OR SHORTNESS OF BREATH, # 8.5 Gm, 5 Refills, Maintenance, 03/13/23 9:55:00 EDT, [facility], 30, INHALE 2 PUFFS BY MOUTH [...] 05/09/23 20:57:00 EDT, Route to Pharmacy Electronically, [facility], 160, cm, 04/02/2312:45:00 EDT, Height, 98.8, kg, 07/17/22 8:58:00 ES... Start Date: 05/09/23 Status: Ordered cyclobenzaprine 5 mg oral tablet 1 tablet = 5 mg, By Mouth, 3 times a day, PRN Spasm, can increase to 2 three time a day if needed, # 90 tablet, 2 Refills, Maintenance, 04/02/23 12:59:00 EDT, Tablet, [facility], Partial fillupon patient request if the prescription is for a s... Start Date: 04/02/23 Status: Ordered DilTIAZem (Eqv-Dilacor XR) 240 mg/24 hours oral capsule, extended release 1 capsule = 240 mg, By Mouth, Daily, # 90 capsule, 3 Refills, Maintenance, 03/13/23 17:04:00 EDT, CD Capsule, [facility], Partial fill upon patient [...] EDT, Route to Pharmacy Electronically, [facility], Partial fill upon patient request if the prescriptio... Start Date: 03/13/23 Stop Date: 04/12/23 Status: Ordered duloxetine 20 mg oral enteric coated capsule 2 capsule = 40 mg, By Mouth, Daily at bedtime, # 60 capsule, 11 Refills, Maintenance, 06/25/21 12:00:00 EST, Capsule, [facility], Partial fill upon patient request if [...] 03/02/23 18:12:00 EDT, Route to Pharmacy Electronically, [facility], Partial fill upon patient request if the prescription is for a schedule II opioid drug... Start Date: 03/02/23 Status: Ordered ipratropium nasal 21 mcg/inh spray 2 sprays = 42 mcg, Nares, Both, 2 times a day, # 30 mL, 5 Refills, Maintenance, 03/13/23 16:58:00 EDT, [place], [facility], Partial fill upon patient request if [...] 02/07/23 18:12:00 EDT, Route to Pharmacy Electronically, [facility], 160, cm, 12/16/22 10:46:00 EDT, Height, [...] 3 Refills, Maintenance, 03/13/23 17:03:00 EDT, Patch, [facility], Partial fill upon patient request if the prescription is for a schedule II opioid drug., 1 patch Topically Daily, 160, cm, 03/02/23 9:56:0... Start Date: 03/13/23 Status: Ordered penicillin V potassium 250 mg oral tablet 1 tablet, By Mouth, 2 times a day, ^1R1,1R4., # 60 tablet, 5 Refills, Maintenance, 04/10/23 16:03:00 EDT, [facility], 160, cm, 04/02/23 12:45:00 EDT, Height, 98.8, kg, 07/17/22 8:58:00 EST, Dry Weight Start Date: 04/10/23 Status: Ordered rOPINIRole 0.5 mg oral tablet 1 tablet, By Mouth, 3 times a day, ^1R1,1R3,1R4., # 90 tablet, 5 Refills, Maintenance, 05/09/23 20:56:00 EDT, [facility], 160, cm, 04/02/23 12:45:00 EDT, Height, 98.8, kg, 07/17/22 8:58:00 EST, Dry Weight Start Date: 05/09/23 Status: Ordered rosuvastatin 10 mg oral tablet 1 tablet, By Mouth, Daily, ^1R1., # 30 tablet, 5 Refills, Maintenance, 02/07/23 18:12:00 EDT, [facility], 160, cm, 12/16/22 10:46:00 EDT, Height, 98.8, kg, 07/17/22 8:58:00 EST, Dry Weight Start Date: 02/07/23 Status: Ordered Symbicort 80mcg/4.5mcg Inhaler See Instructions, INHALE 2 PUFFS BY MOUTH TWICE A DAY RINSE MOUTH AND THROAT AFTER USE, # 10.2 Gm, Refills 5, Tot. Refills 5, Maintenance, 03/13/23 10:13:00 EDT, Instructions Replace Required Details, Route to Pharmacy Electronically, [id number]... Start Date: 03/13/23 Status: Ordered Xarelto 20 [...] Member Role: Primary Care Nurse Address: Address: [address] [place] [address] [place] [address]- Name: Marley Alejo RN Position: S RN Member Role: Primary Care Nurse Name: Alma Delia Fonseca PharmD Position: [facility] Associate Professional Member Role: Lifetime Consulting Provider Address: Address: [address] [facility] [place] [address]- [place] Name: Yolis Mattson RN Position: S RN Member Role: Primary Care Nurse Name: Priscila Garzon RN Position: S RN Member Role: Primary Care Nurse Name: Kyle Ahumada DO Position: [facility] Physician - Primary Care Member Role: PCP Address: Address: [address] [place] [address]- [place] Name: Renea Mart RN Position: S RN Member Role: Primary Care Nurse Care Team Related Persons Name: FAUZIA JANSEN Address: home [address] [place] [address] Name: AURELIA SHETH Address: home [address] [place] [address] Name: BRE OSORIO Address: home [address] [place] [address]
--- OUTSIDE RECORDS SUMMARY | 2024-01-02 21:34 | XMS_ITS | Continuity of Care Document ---
Author Organization [facility] Buck Nolberto Address [address] [place] [address]- Care Team Providers Care Health Care Legal Assistant Name Role Phone Radha GRIDER, Fuentes Kenny Primary Care Physician [facility]counter [facility] Date(s): 01/02/21 - 02/01/21 [facility] Adult [address] [place] [address]- Allergies, Adverse Reactions, Alerts Substance Reaction Severity [...] B adult vaccine 06/14/02 Recorded 1Result Comment: [id number] 2Result Comment: [id number] 3Result Comment: [07/08/2017] [id number] 4Admin Note: [facility] 5Admin Note: [facility] [...] 11 Refills, Maintenance, 10/31/20 14:14:00 EDT, Cream, [facility] #[id number], Partial fill upon patient request if the [...] 11/27/20 10:09:00 EDT, Route to Pharmacy Electronically, [facility][id number], please schedule appt for further refills, 165, cm, 11/19/20 11:32:00 EDT, Hei... Start Date: 11/27/20 Status: Ordered Claritin 10 mg oral tablet 10 mg, 1, tablet, By Mouth, Daily, for 90 days, # 90 tablet, Refills 3, Tot. Refills 3, Acute 07/28/21 15:22:00 EST, 08/02/20 15:22:00 EST, Route to Pharmacy Electronically, [facility] #[id number], 165, cm, 07/31/20 14:32:00 EST, Height, 127, [...] PMR, history of smoking fax to : [phone], 04... Start Date: 10/26/20 Status: Ordered Disposable [...] Gm, 3 Refills, Maintenance, 06/22/20 14:58:00 EST, [facility] #[id number], 165, cm, 06/07/20 13:52:00 EST, Height, 127, [...] mL, 5 Refills, Maintenance, 10/01/18 10:08:42 EST, [place], 2 sprays Nares, Both 2 times a [...] 08/02/20 16:13:00 EST, Route to Pharmacy Electronically, [facility] #[id number], D/C RX ON FILE FOR CLARITAN, 165, [...] tablet, 1 Refills, Maintenance, 07/12/20 13:56:00 EST, [facility] #[id number], Partial fill upon patient request if the prescription is for a schedule II opioid drug., 165, cm, 07/11/20 15:24:00 EST,... Start Date: 07/12/20 Stop Date: 07/05/21 Status: Ordered metoprolol 25 mg oral tablet 25 mg, 1, tablet, By Mouth, 2 times a day, # 60 tablet, Refills 5, Tot. Refills 5, Maintenance, 09/22/20 13:59:00 EST, Route to Pharmacy Electronically, [facility] #[id number], 165, cm, 07/31/2113:32:00 EST, Height, 127, kg, 02/03/20 14:39:00 ED... Start Date: 09/22/20 Status: Ordered Mitigare 0.6 mg oral capsule 1 capsule, By Mouth, Daily, # 30 capsule, 11 Refills, Maintenance, 12/31/20 16:51:00 EDT, [facility] #[id number], 165, cm, 11/19/20 11:32:00 EDT, Height, 127, [...] 0 Refills, Maintenance, 06/18/20 16:57:00 EST, Patch, [facility] #[id number], Partial fill upon patient request, 165, cm, 06/07/20 13:52:00 EST, Height, 127, kg, 02/03/20 14:39:00 EDT, Dry Weight Start Date: 06/18/20 Stop Date: 07/30/20 Status: Ordered NuLYTELY with Flavor Packs oral powder for reconstitution See Instructions, Drink 240mL every 15-20 minutes until first half is gone. Repeat 6 hours prior toprocedure., # 4,000 mL, 0 Refills, Maintenance, 06/28/20 17:09:00 EST, [facility] #[id number],Partial fill upon patient request if the prescript... Start Date: 06/28/20 Status: Ordered oxyCODONE 10 mg oral tablet 1 tablet = 10 mg, By Mouth, Every 8 hours, DX Z79.891 G89.29 M47.816 OK TO FILL LESS THAN PRESCRIBED AMOUNT, # 84 tablet, 0 Refills, Maintenance, 01/25/21 16:57:00 EDT, Tablet, [facility] #[id number], 01/29/21, 165, cm, 01/11/21 14:05:00 EDT, He... Start Date: 01/25/21 Stop Date: 02/22/21 Status: Ordered penicillin V potassium 250 mg oral tablet 1 tablet = 250 mg, By Mouth, 2 times a day, Cellulitis prophylaxis, # 60 tablet, 11 Refills, Maintenance, 10/30/20 12:09:00 EDT, [facility] #[id number], 165, cm, 10/19/20 8:59:00 EDT, Height, 127, kg, 02/03/20 14:39:00 EDT, Dry Weight Start Date: 10/30/20 Status: Ordered predniSONE 5 mg oral tablet 1 tablet = 5 mg, By Mouth, Daily, # 30 tablet, 0 Refills, Maintenance, 01/11/21 14:20:00 EDT, Tablet, [facility] #[id number], Partial fill upon patient request if the [...] 5 Refills, Maintenance, 04/30/20 15:13:00 EDT, Tablet, [facility] #[id number], 165, cm, 04/30/20 14:30:00 EDT, Height, 127, kg, 02/03/20 14:39:00 EDT, Dry Weight Start Date: 04/30/20 Status: Ordered rosuvastatin 10 mg oral tablet 1 tablet = 10 mg, By Mouth, Daily, # 90 tablet, 3 Refills, Maintenance, 05/03/20 16:35:00 EDT, Tablet, [facility] #[id number], d/c rx for capsules, 165, cm, 04/30/20 14:30:00 EDT, Height, 127, kg, 02/03/20 14:39:00 EDT, Dry Weight Start Date: 05/03/20 Status: Ordered Ventolin HFA 108 mcg/inh inhalation aerosol with adapter 2 puffs, Inhalation, Every 4 hours, PRN Wheezing/Shortness of Breath, # 1 each, 5 Refills, Soft Stop, 11/08/20 8:46:00 EDT, [facility] #[id number], 165, cm, 10/19/20 8:59:00 EDT, Height, 127, kg, 02/03/20 14:39:00 EDT, Dry Weight Start Date: 11/08/20 Status: Ordered warfarin 5 mg oral tablet 1 tablet = 5 mg, By Mouth, Daily, dosing subject to change pending inr lab values, # 30 tablet, 11 Refills, Maintenance, 08/31/20 15:36:00 EST, Tablet, [facility] #[id number], 165, cm, 07/31/20 14:32:00 EST, Height, 127, [...] use(Confirmed) Active Gastric banding status(Confirmed) Active 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
--- OUTSIDE RECORDS SUMMARY | 2024-01-02 21:34 | XMS_ITS | Continuity of Care Document ---
Author Organization [facility] Address [address] [place] [address]- Care Team Providers Care Sales Inspector Name Role Phone Fuentes Garcia MD Primary Care Physician [facility]counter [facility] Date(s): 11/30/19 - 12/07/19 [facility] [address] [address]- [facility] Attending Physician: Sayda Fields MD Admitting Physician: Sayda Fields MD Referring Physician: Fuentes Garcia MD Allergies, Adverse Reactions, Alerts Substance Reaction Severity Status Dust copd exac/sinus congestion A ctive Immunizations Given and Recorded Vaccine Date Status Refusal Reason influenza virus vaccine, inactivated 1 05/23/19 Gi octavio influenza virus vaccine, inactivated 04/27/18 Give n influenza virus vaccine, inactivated 2 07/08/17 Gi ocatvio influenza virus vaccine, inactivated 3 04/01/17 Gi octavio influenza virus vaccine, inactivated 08/12/16 Jarrett rded influenza virus vaccine, inactivated 05/23/14 Give n influenza virus vaccine, inactivated 4 06/07/13 Gi octavio Fluvirin (oldterm) 5 03/22/15 Given Fluzone Preservative-Free (oldterm) 6 03/12/12 Giv en pneumococcal 23-valent vaccine 10/08/11 Given tetanus/diphtheria/pertussis, acel(Tdap) 09/08/11 Given influ virus vac, H1N1, inactive(oldterm) 7 05/08/11 Given 1Result Comment: [id number] 2Result Comment: [07/08/2017] [id number] 3Admin Note: [facility] 4Admin Note: [facility] [...] 12/06/19 9:16:00 EDT, Route to Pharmacy Electronically, [facility] #[id number], please schedule appt for further refills, 162, cm, 09/21/19 12:01:00 EST, [place]... Start Date: 12/06/19 Status: Ordered Claritin 10 mg oral tablet 10 mg, 1, tablet, By Mouth, Daily, for 30 days, # 30 tablet, Refills 11, Tot. Refills 11, Acute 05/11/20 17:36:41 EDT, 05/17/19 17:36:41 EDT, [id number] [address] [facility] Start Date: 05/17/19 Stop Date: 05/11/20 Status: [...] mL, 5 Refills, Maintenance, 10/01/18 10:08:42 EST, [place], 2 sprays Nares, Both 2 times a [...] 09/28/19 11:53:00 EST, Route to Pharmacy Electronically, [facility] #[id number], 162, cm, 09/21/2011:01:00 EST, Height, 116.4, kg, [...] Refills, Maintenance, 12/05/19 17:35:00 EDT, Tablet, [id number], 162, cm, 09/21/19 12:01:00 EST, Height, 116.4, kg... Start Date: 12/05/19 Status: Ordered OYSTER SHELL SHARIF-VIT D 500-400 See Instructions, # 300 tablet, take 1 tablet by mouth twice a day, [facility] Start Date: 05/17/19 Status: Ordered penicillin V potassium 250 mg oral tablet 1 tablet = 250 mg, By Mouth, 2 times a day, Cellulitis prophylaxis, # 60 tablet, 11 Refills, Maintenance, 05/18/19 14:33:58 EDT, D/C previous rx sent 05/17/19 Start Date: 05/18/19 Status: Ordered predniSONE 50 mg oral tablet 1 tablet = 50 mg, By Mouth, Daily, for 7 days, # 7 tablet, 0 Refills, Acute 12/09/19 11:18:00 EDT, 12/02/19 11:18:00 EDT, Tablet, [facility], 162, cm, 09/21/19 12:01:00 EST, Height, 116.4, kg, 05/04/19 11:52:00 EDT, Dry Weight Start Date: 12/02/19 Stop Date: 12/09/19 Status: Ordered PULL UPS PULL UPS, See [...] HOURS IF NEEDED FOR WHEEZING - REPL[facility] - [address] [place] [address] Start Date: 01/24/19 Status: Ordered Vitamin C [...]
--- OUTSIDE RECORDS SUMMARY | 2024-01-02 21:34 | XMS_ITS | Continuity of Care Document ---
Author Organization [facility] Buck Nolberto Address [address] [place] [address]- Care Team Providers Care Windows Administrator Name Role Phone Krishan GRIDER, Eulogio Molina Primary Care Physician [phone] [facility]counter [facility] Date(s): 11/14/21 - 12/14/21 [facility] Adult [address] [place] [address]- Allergies, Adverse Reactions, Alerts Substance Reaction Severity Status Adhesive Bandage Active Dust copd exac/sinus congestion A ctive Immunizations Given and Recorded Vaccine Date Status Refusal Reason SARS-CoV-2 mRNA (wrzjaya-mpbu-wzatd) vax 08/30/21 Recorded influenza virus vaccine, inactivated [...] B adult vaccine 06/14/02 Recorded 1Result Comment: [id number] 2Result Comment: [id number] 3Result Comment: [id number] 4Result Comment: [07/08/2017] [id number] 5Admin Note: [facility] 6Admin Note: [facility] [...] EDT, [facility] #[id number], 17, INHALE 2 PUFFS BY MOUTH EVERY 4 HOURS NEEDED FOR WHEEZING OR SHORTNE... Start Date: 05/29/21 Status: Ordered calcipotriene 0.005% topical cream 1 application, Topically, 2 times a day, # 60 Gm, 11 Refills, Maintenance, 11/15/21 11:54:00 EDT, Cream, [facility], Partial fill upon patient request if the prescription is for a schedule IIopioid drug., 1 application Topically 2 times a day... Start Date: 11/15/21 Status: Ordered colchicine 0.6 mg oral tablet 0.6 mg, 1, tablet, By Mouth, Daily, # 30 tablet, Refills 11, Tot. Refills 11, Maintenance, :00:00 EDT, Route to Pharmacy Electronically, [facility], Partial fill upon patient request if the prescription is for a schedule II opioid drTorey.. Start Date: 10/30/21 Status: Ordered cyclobenzaprine 10 mg oral tablet See Instructions, PRN, 1 tablet By Mouth 3 times a day as needed, # 20 tablet, Refills 0, Tot. Refills 0, Maintenance, for spasm, 11/08/21 10:23:00 EDT, Instructions Replace Required Details, Route to Pharmacy Electronically, [facility][id number]... Start Date: 11/08/21 Status: Ordered digoxin 0.125 mg oral tablet 125 mcg, 1, tablet, By Mouth, Daily, # 90 tablet, Refills 1, Tot. Refills 1, Maintenance, 12/11/21 13:41:00 EDT, Route to Pharmacy Electronically, [facility], Partial fill upon patient request if the prescription is for a schedule II opioid drTorey.. Start Date: 12/11/21 Status: Ordered duloxetine 20 mg oral enteric coated capsule 2 capsule = 40 mg, By Mouth, Daily at bedtime, # 60 capsule, 11 Refills, Maintenance, 06/25/21 12:00:00 EST, Capsule, [facility], Partial fill upon patient request if [...] 5 Refills, Maintenance, 11/18/21 13:49:00 EDT, Tablet, [facility], Partial fill upon patient request if [...] Details, Route to Pharmacy Electronically, [facility], 165, cm, 06/25/21 11:35:00 EST, Height, 127, kg, 02/03/20 14:39:00 EDT, Dry Weight Start Date: 08/05/21 Status: Ordered metoprolol 100 mg oral tablet, extended release 100 mg, 1, tablet, By Mouth, Daily, # 90 tablet, Refills 1, Tot. Refills 1, Maintenance, 12/11/21 13:41:00 EDT, Route to Pharmacy Electronically, [facility], Partial fill upon patient requestif the prescription is for a schedule II opioid keanu... Start Date: 12/11/21 Status: Ordered nicotine 4 mg oral transmucosal gum 1 each = 4 mg, Chew, Every 2 hours, PRN as needed for smoking cessation, # 160 each, 2 Refills, Acute 03/05/22 16:36:00 EDT, 12/03/21 16:35:00 EDT, Gum, [facility] #[id number], Partial fill uponpatient request if the prescription is for a schedu... Start Date: 12/03/21 Stop Date: 03/05/22 Status: Ordered NuLYTELY with Flavor Packs oral powder for reconstitution 240 mL, By Mouth, Every 10 minutes, # 1 each, 0 Refills, Maintenance, 10/25/21 10:39:00 EDT, REC Powder, [facility], Partial fill upon patient request if the prescription is for a schedule IIopioid drug., 240 mL By Mouth Every 10 minutes, 165... Start Date: 10/25/21 Status: Ordered penicillin V potassium 250 mg oral tablet 1 tablet, By Mouth, 2 times a day, CELLULITIS PROPHYLAXIS., # 60 tablet, 6 Refills, [facility], 165, cm, 11/08/21 10:02:00 EDT, Height, 127, kg, 02/03/20 14:39:00 EDT, Dry Weight Start Date: 11/15/21 Status: Ordered rOPINIRole 0.5 mg oral tablet 1 tablet, By Mouth, 3 times a day, # 90 tablet, 5 Refills, 11/08/21 9:01:00 EDT, [facility], 165, cm, 11/04/21 8:42:00 EDT, Height, 127, kg, 02/03/20 14:39:00 EDT, Dry Weight Start Date: 11/08/21 Status: Ordered rosuvastatin 10 mg oral tablet See Instructions, TAKE 1 TABLET BY MOUTH DAILY, # 90 tablet, 1 Refills, Maintenance, 10/18/21 21:30:00 EDT, [facility], 165, cm, 09/04/21 14:01:00 EST, Height, 127, kg, 02/03/20 14:39:00 EDT,Dry Weight Start Date: 10/18/21 Status: Ordered warfarin 2.5 mg oral tablet See Instructions, Dosing Subject To Change per INR Result per MD, # 30 each, 6 Refills, Maintenance, 12/13/21 13:47:00 EDT, Tablet, [facility], Dosing Subject To Change per INR Result per MD,165, cm, 12/06/21 14:01:00 EDT, Height, 102.1, kg,... Start Date: 12/13/21 Status: Ordered warfarin 5 mg oral tablet See Instructions, Dosing Subject To Change Per INR Result per MD, # 30 each, 6 Refills, Maintenance, 12/13/21 14:01:00 EDT, Tablet, [facility], PLEASE GIVE BOTH 5MG TABLETS AND [...]
--- OUTSIDE RECORDS SUMMARY | 2024-01-02 21:35 | XMS_ITS | Continuity of Care Document ---
Author Organization [facility] Robin Jane Nolberto Address [address] [place] [address]- Care Team Providers Care Marble Ceiling Installer Name Role Phone Kyle Ahumada DO Primary Care Physician [facility] Date[facility]): 02/05/23 - 03/07/23 [facility] Robin Bolañosley Adult [address] [place] [address]- Allergies, Adverse Reactions, Alerts Substance Reaction Severity [...] vaccine, inactivated 05/10/07 Jarrett rded SARS-CoV-2 mRNA (kfkmtav-liwq-xnbbk) vax 08/30/21 Recorded SARS-CoV-2 (COVID-19) mRNA BNT-162b2 vac 01/02/21 Recorded SARS-CoV-2 (COVID-19) mRNA BNT-162b2 vac 12/02/20 Recorded Fluvirin (oldterm) 8 03/22/15 Given Fluzone Preservative-Free (oldterm) 9 03/12/12 Giv en pneumococcal 23-valent vaccine 10/08/11 Given tetanus/diphtheria/pertussis, acel(Tdap) 09/08/11 Given tetanus/diphtheria/pertussis, acel(Tdap) 12/17/06 Recorded influ virus vac, H1N1, inactive(oldterm) 10 05/08/11 Given hepatitis B adult vaccine 06/14/02 Recorded 1Result Comment: [id number] 2Result Comment: [id number] 3Result Comment: [id number] 4Result Comment: [id number] 5Result Comment: [07/08/2017] [id number] 6Admin Note: [facility] 7Admin Note: [facility] [...] Gm, 4 Refills, Maintenance, 09/08/22 14:55:00 EST, [facility], 30, INHALE 2 PUFFS BY [...] 10/03/22 11:23:00 EST, [facility]ically, [facility], 160,cm, 09/09/22 14:31:00 EST, Height, 98.8, kg, 07/17/... Start Date: 10/03/22 Status: Ordered cyclobenzaprine 5 mg oral tablet 1 tablet = 5 mg, By Mouth, 3 times a day, # 45 tablet, 1 Refills, Maintenance, 03/03/23 9:27:00 EDT, [facility], Partial fill upon patient request [...] 01/11/22 7:25:00 EDT, Route to Pharmacy Electronically, [facility], Partial fill upon patient request if the [...] 03/02/23 18:12:00 EDT, Route to Pharmacy Electronically, [facility], Partial fill upon patient request if the prescription is for a schedule II opioid drug... Start Date: 03/02/23 Status: Ordered ipratropium nasal 21 mcg/inh spray 2 sprays = 42 mcg, Nares, Both, 2 times a day, # 30 mL, 5 Refills, Acute 03/16/23 6:08:00 EDT, 10/14/22 6:08:00 EDT, [id number], Partial fill upon patient request if the [...] 02/07/23 18:12:00 EDT, Route to Pharmacy Electronically, [facility], 160, cm, 12/16/22 10:46:00 EDT, Height, [...] 5 Refills, Maintenance, 11/06/22 17:25:00 EDT, Tablet, [facility], Partial fill upon patient request if the prescription is for a schedule II opioid drug., 160, c... Start Date: 11/06/22 Stop Date: 05/05/23 Status: Ordered rOPINIRole 0.5 mg oral tablet 1 tablet, By Mouth, 3 times a day, ^1R1,1R3,1R4., # 90 tablet, 5 Refills, Maintenance, 12/24/22 14:21:00 EDT, [facility], 160, cm, 12/16/22 10:46:00 EDT, Height, 98.8, kg, 07/17/22 8:58:00 EST, Dry Weight Start Date: 12/24/22 Status: Ordered rosuvastatin 10 mg oral tablet 1 tablet, By Mouth, Daily, ^1R1., # 30 tablet, 5 Refills, Maintenance, 02/07/23 18:12:00 EDT, [facility], 160, cm, 12/16/22 10:46:00 EDT, Height, 98.8, kg, 07/17/22 8:58:00 EST, Dry Weight Start Date: 02/07/23 Status: Ordered Symbicort 80mcg/4.5mcg Inhaler See Instructions, INHALE 2 PUFFS BY MOUTH TWICE A DAY RINSE MOUTH AND THROAT AFTER USE, # 10.2 Gm, Refills 5, Maintenance, 07/30/22 21:16:00 EST, Instructions Replace Required Details, Route to Pharmacy Electronically, [id number], [facility]... Start Date: 07/30/22 Status: Ordered Xarelto 20 mg oral tablet 1 tablet = 20 mg, By Mouth, Daily at supper, # 90 tablet, 1 Refills, Maintenance, 03/02/23 18:12:00EDT, Tablet, [facility], pt was rx'd w diltiazem on [...] Team Personnel Name: Sandra Wills NP Position: [facility] PCO Associate Professional Member Role: Primary Care Nurse Address: Address: [address] [place] [address] [place] [address]- [place] Name: Marley Alejo RN Position: [facility] RN Member Role: Primary Care Nurse Name: Alma Delia Fonseca PharmD Position: [facility] Associate Professional Member Role: Lifetime Consulting Provider Address: Address: [address] [place] [address] [place] [address]- [place] Name: Yolis Mattson RN Position: [facility] RN Member Role: Primary Care Nurse Name: Priscila Garzon RN Position: [facility] RN Member Role: Primary Care Nurse Name: Kyle Ahumada DO Position: [facility] Physician - Primary Care Member Role: PCP Address: Address: [address] [place] [address]- [place] Name: Renea Mart RN Position: [facility] RN Member Role: Primary Care Nurse Care Team Related Persons Name: FAUZIA JANSEN Address: home [address] [place] [address] Name: AURELIA SHETH Address: home [address] [place] [address] Name: BRE OSORIO Address: home [address] [place] [address]
--- OUTSIDE RECORDS SUMMARY | 2024-01-02 21:35 | XMS_ITS | Continuity of Care Document ---
Author Organization [facility] Buck Nolberto Address [address] [place] [address]- Care Team Providers Care Supervisor Throwing Department Name Role Phone Krishan GRIDER, Eulogio Molnia Primary Care Physician [facility] Date[facility]): 07/17/22 - 08/16/22 [facility] Robin Bolañosley Adult [address] [place] [address]- Allergies, Adverse Reactions, Alerts Substance Reaction Severity [...] vaccine, inactivated 05/10/07 Jarrett rded SARS-CoV-2 mRNA (uhhxwkx-zpmw-atgkh) vax 08/30/21 Recorded SARS-CoV-2 (COVID-19) mRNA BNT-162b2 vac 01/02/21 Recorded SARS-CoV-2 (COVID-19) mRNA BNT-162b2 vac 12/02/20 Recorded Fluvirin (oldterm) 8 03/22/15 Given Fluzone Preservative-Free (oldterm) 9 03/12/12 Giv en pneumococcal 23-valent vaccine 10/08/11 Given tetanus/diphtheria/pertussis, acel(Tdap) 09/08/11 Given tetanus/diphtheria/pertussis, acel(Tdap) 12/17/06 Recorded influ virus vac, H1N1, inactive(oldterm) 10 05/08/11 Given hepatitis B adult vaccine 06/14/02 Recorded 1Result Comment: [id number] 2Result Comment: [id number] 3Result Comment: [id number] 4Result Comment: [id number] 5Result Comment: [07/08/2017] [id number] 6Admin Note: [facility] 7Admin Note: [facility] [...] Gm, 4 Refills, Maintenance, 04/28/22 13:11:00 EDT, [facility], 17, INHALE 2 PUFFS [...] Maintenance, :00:00 EDT, Route to Pharmacy Electronically, [facility] [...] 01/11/22 7:25:00 EDT, Route to Pharmacy Electronically, [facility], Partial fill upon patient request if the prescri... Start Date: 01/11/22 Stop Date: 02/10/22 Status: Ordered duloxetine 20 mg oral enteric coated capsule 2 capsule = 40 mg, By Mouth, Daily at bedtime, # 60 capsule, 11 Refills, Maintenance, 06/25/21 12:00:00 EST, Capsule, [facility], Partial fill [...] 07/17/22 17:07:00 EST, Route to Pharmacy Electronically, [facility], 160, cm, 07/17/22 12:03:00 [...] 5 Refills, Maintenance, 07/29/22 6:50:00 EST, Tablet, [facility], Partial fill [...] tablet, 5 Refills, Maintenance, 07/24/22 23:41:00 EST, [facility], 160, cm, 07/18/22 11:39:00 [...] Gm, 5 Refills, Maintenance, 07/17/22 11:09:00 EST, [facility], 160, cm, 07/17/22 8:49:00 EST, Height, 98.8, kg, 07/17/22 8:58:00 EST, Dry Weight Start Date: 07/17/22 Status: Ordered Symbicort 80mcg/4.5mcg Inhaler See Instructions, INHALE 2 PUFFS BY MOUTH TWICE A DAY RINSE MOUTH AND THROAT AFTER USE, # 10.2 Gm, Refills 5, Maintenance, 07/30/22 21:16:00 EST, Instructions Replace Required Details, Route to Pharmacy Electronically, [facility][id number], [facility]... 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 [...] Team Personnel Name: Sandra Wills NP Position: [facility] PCO Associate Professional Member Role: Primary Care Nurse Address: Address: [address] [place] [address] [place] [address]- Name: Marley Alejo RN Position: [facility] RN Member Role: Primary Care Nurse Name: Eulogio Nickerson MD Position: [facility] Primary Care Physician Member Role: PCP Address: Address: [address] [place] [address]- Name: Alma Delia Fonseca PharmD Position: [facility] Associate Professional Member Role: Lifetime Consulting Provider Address: Address: [address] [place] [address] Coumadin [place], [place] [address] Name: Yolis Mattson RN Position: [facility] RN Member Role: Primary Care Nurse Name: Priscila Garzon RN Position: [facility] RN Member Role: Primary Care Nurse Name: Renea Mart RN Position: [facility] RN Member Role: Primary Care Nurse Care Team Related Persons Name: FAUZIA JANSEN Address: home [address] [place] [address] Name: AURELIA SHETH Address: home [address] [place] [address] Name: BRE OSORIO Address: home [address] [place] [address]
--- OUTSIDE RECORDS SUMMARY | 2024-01-02 21:35 | XMS_ITS | Continuity of Care Document ---
Author Organization [facility] Robin Jane Nolberto Address [address] [place] [address]- Care Team Providers Care Collar Turner Operator Name Role Phone Fuentes Garcia MD Primary Care Physician Encounter [facility] Date(s): 04/20/20 - 04/27/20 [facility] [place] Adult [address] [place] [address]- [facility] Encounter Diagnosis Cellulitis of right breast(Discharge Diagnosis) - 04/20/20 Attending Physician: Fuentes Garcia MD Allergies, Adverse [...] H1N1, inactive(oldterm) 7 05/08/11 Given 1Result Comment: [id number] 2Result Comment: [07/08/2017] 50394-256-01 3Admin Note: [facility] 4Admin Note: [facility] - 5Admin Note: Given at [facility] 6Admin Note: 8-16-12 GIVEN AT [facility] 7Admin Note: rcvd [...] 12/06/19 9:16:00 EDT, Route to Pharmacy Electronically, [facility][id number], please schedule appt for further refills, 162, cm, 09/21/19 12:01:00 ESTLaurie... Start Date: 12/06/19 Status: Ordered Claritin 10 mg oral tablet 10 mg, 1, tablet, By Mouth, Daily, for 30 days, # 30 tablet, Refills 11, Tot. Refills 11, Acute 05/11/20 17:36:41 EDT, 05/17/19 17:36:41 EDT, [id number] [address] Start Date: 05/17/19 Stop Date: 05/11/20 Status: Ordered colchicine 0.6 mg oral tablet See Instructions, take 1 tablet by mouth once daily if needed for PSEUDOGOUT pain, # 30 tablet, Refills 5, Tot. Refills 5, Soft Stop, 01/05/20 8:41:00 EDT, Instructions Replace Required Details, Route to Pharmacy Electronically, [facility] #... Start Date: 01/05/20 Status: Ordered Disposable [...] Gm, 1 Refills, Maintenance, 12/20/19 16:30:00 EDT, [facility] #[id number], 162, cm, 09/21/19 12:01:00 EST, Height, 116.4, [...] mL, 5 Refills, Maintenance, 10/01/18 10:08:42 EST, [place], 2 sprays Nares, Both 2 times a [...] 03/22/20 16:34:00 EDT, Route to Pharmacy Electronically, [facility] #[id number], 165, cm, 02/02/2014:39:00 EDT, Height, 127, kg, [...] 0 Refills, Maintenance, 04/23/20 12:56:00 EDT, Tablet, [facility] #[id number], 04/24/20, 165, cm, 02/03/20 14:39:00 EDT, He... [...] 11 Refills, Soft Stop, 01/19/20 11:46:00 EDT, [facility] #[id number], 165, cm, 01/16/20 6:17:00 EDT, Height, 128.1, kg, 01/16/20 6:17:00 EDT, Dry Weight Start Date: 01/19/20 Status: Ordered warfarin 5 mg oral tablet 1 tablet = 5 mg, By Mouth, Daily, dosing subject to change pending inr lab values, # 30 tablet, 5 Refills, Maintenance, 02/15/20 13:21:00 EDT, Tablet, [facility] #[id number], 165, cm, 02/03/20 14:39:00 EDT, Height, 127, [...] Effective Dates Health Status Clinical Service Informant Cellulitis of right breast Discharge Diagnosis 04/20/20 Social History Social History Type Response Smoking Status 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
--- OUTSIDE RECORDS SUMMARY | 2024-01-02 21:35 | XMS_ITS | Continuity of Care Document ---
Author Organization [facility] Robin Jane Nolberto Address [address] [place] [address]- Care Team Providers Care Blacksmith Apprentice Name Role Phone Fuentes Garcia MD Primary Care Physician [phone] [facility]counter [facility] Date(s): 03/22/20 - 04/21/20 [facility] Robin Bolañosley Adult [address] [place] [address]- [facility] Allergies, Adverse Reactions, Alerts Substance [...] H1N1, inactive(oldterm) 7 05/08/11 Given 1Result Comment: [id number] 2Result Comment: [07/08/2017] [id number] 3Admin Note: [facility] 4Admin Note: [facility] [...] 12/06/19 9:16:00 EDT, Route to Pharmacy Electronically, [facility] #[id number], please schedule appt for further refills, 162, cm, 09/21/19 12:01:00 Laurie SPAIN... Start Date: 12/06/19 Status: Ordered Claritin 10 mg oral tablet 10 mg, 1, tablet, By Mouth, Daily, for 30 days, # 30 tablet, Refills 11, Tot. Refills 11, Acute 05/11/20 17:36:41 EDT, 05/17/19 17:36:41 EDT, Route to Pharmacy Electronically, [id number] [address] Start Date: 05/17/19 Stop Date: 05/11/20 Status: Ordered colchicine 0.6 mg oral tablet See Instructions, take 1 tablet by mouth once daily if needed for PSEUDOGOUT pain, # 30 tablet, Refills 5, Tot. Refills 5, Soft Stop, 01/05/20 8:41:00 EDT, Instructions Replace Required Details, Route to Pharmacy Electronically, [facility] #... Start Date: 01/05/20 Status: Ordered Disposable [...] 04/27/20 15:15:00 EDT, 04/20/20 15:15:00 EDT, Capsule, [facility][id number], 165, cm, 02/03/20 14:39:00 EDT, Height, 127, [...] Gm, 1 Refills, Maintenance, 12/20/19 16:30:00 EDT, [facility] #[id number], 162, cm, 09/21/19 12:01:00 EST, Height, 116.4, [...] mL, 5 Refills, Maintenance, 10/01/18 10:08:42 EST, [place], 2 sprays Nares, Both 2 times a [...] 04/27/20 16:20:00 EDT, 04/17/20 16:20:00 EDT, Capsule, [facility] #[id number], 165, cm, 02/03/20 14:39:00EDT, Height, 127, kg, 02/03/20 14:39:00 EDT, Dry We... Start Date: 04/17/20 Stop Date: 04/27/20 Status: Ordered metoprolol 25 mg oral tablet 25 mg, 1, tablet, By Mouth, 2 times a day, # 60 tablet, Refills 5, Tot. Refills 5, Maintenance, 03/22/20 16:34:00 EDT, Route to Pharmacy Electronically, [facility] #[id number], 165, cm, 02/02/2014:39:00 EDT, Height, 127, kg, [...] 0 Refills, Maintenance, 03/26/20 17:11:00 EDT, Tablet, [facility] #[id number], 03/27/20, 165, cm, 02/03/20 14:39:00 EDT, He... 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
--- OUTSIDE RECORDS SUMMARY | 2024-01-02 21:35 | XMS_ITS | Continuity of Care Document ---
Author Organization [facility] Address [address] [place] [address]- Care Team Providers Care Baggagemaster Name Role Phone Eulogio Nickerson MD Primary Care Physician [phone] Encounter [facility] Date(s): 01/10/22 - 02/09/[address] [address] Attending Physician: Not on Staff, Attending MD Admitting Physician: Not on Staff, Admitting MD Referring Physician: Not on Staff, Referring MD Allergies, Adverse Reactions, Alerts Substance Reaction Severity Status Adhesive Bandage Active Dust copd exac/sinus congestion A ctive Immunizations Given and Recorded Vaccine Date Status Refusal Reason SARS-CoV-2 mRNA (rxdtvgz-liaa-xbaoy) vax 08/30/21 Recorded influenza virus vaccine, inactivated [...] B adult vaccine 06/14/02 Recorded 1Result Comment: [id number] 2Result Comment: [id number] 3Result Comment: [id number] 4Result Comment: [07/08/2017] [id number] 5Admin Note: [facility] 6Admin Note: [facility] [...] 8.5 Gm, 5 Refills, 05/29/21 17:13:00 EDT, [facility][id number], 17, INHALE 2 PUFFS BY MOUTH EVERY [...] 0 Refills, Maintenance, 01/11/22 7:25:00 EDT, Capsule, [facility], Partial fill [...] Route to Pharmacy Electronically, [facility], 159, cm, 01/11/22 15:15:00 EDT, Height, 98.8, k... Start Date: 02/07/22 Status: Ordered colchicine 0.6 mg oral tablet 0.6 mg, 1, tablet, By Mouth, Daily, # 30 tablet, Refills 11, Tot. Refills 11, Maintenance, :00:00 EDT, Route to Pharmacy Electronically, [facility], Partial fill upon patient [...] 01/11/22 7:25:00 EDT, Route to Pharmacy Electronically, [facility], Partial fill upon patient request [...] 12/11/21 13:41:00 EDT, Route to Pharmacy Electronically, [facility], Partial fill upon patient requestif [...] 03/05/22 16:36:00 EDT, 12/03/21 16:35:00 EDT, [facility], [facility][id number], Partial fill uponpatient request if the prescription [...] CELLULITIS PROPHYLAXIS., # 60 tablet, 6 Refills, [facility], 165, cm, 11/08/21 10:02:00 EDT, Height, 127, kg, 02/03/20 14:39:00 EDT, Dry Weight Start Date: 11/15/21 Status: Ordered rOPINIRole 0.5 mg oral tablet 1 tablet, By Mouth, 3 times a day, # 90 tablet, 5 Refills, 11/08/21 9:01:00 EDT, [facility], 165, cm, 11/04/21 8:42:00 EDT, Height, 127, kg, 02/03/20 14:39:00 EDT, Dry Weight Start Date: 11/08/21 Status: Ordered rosuvastatin 10 mg oral tablet See Instructions, TAKE 1 TABLET BY MOUTH DAILY, # 90 tablet, 1 Refills, Maintenance, 10/18/21 21:30:00 EDT, [facility], 165, cm, 09/04/21 14:01:00 EST, [...] 0 Refills, Maintenance, 01/11/22 7:24:00 EDT, Tablet, [facility], Partial [...] long-term use(Confirmed) Active Gastric banding status(Confirmed) Active rn long term care current use of 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
--- OUTSIDE RECORDS SUMMARY | 2024-01-02 21:35 | XMS_ITS | Continuity of Care Document ---
Author Organization [facility] Address [address] [place] [address]- Care Team Providers Care Confidential Investigator Name Role Phone Eulogio Nickerson MD Primary Care Physician Encounter [facility] ACCT R [id number] Date(s): 12/19/21 - 01/18/22 [facility] [address] [place] [address]- Attending Physician: AdmDesire andre Admitting Physician: Admtr, [id number] Referring Physician: Admtr, Ar8 Allergies, Adverse Reactions, Alerts Substance Reaction Severity Status Adhesive Bandage Active Dust copd exac/sinus congestion A ctive Immunizations Given and Recorded Vaccine Date Status Refusal Reason SARS-CoV-2 mRNA (augqonk-pcfm-qytpo) vax 08/30/21 Recorded influenza virus vaccine, inactivated [...] B adult vaccine 06/14/02 Recorded 1Result Comment: [id number] 2Result Comment: [id number] 3Result Comment: [id number] 4Result Comment: [07/08/2017] [id number] 5Admin Note: [facility] 6Admin Note: [facility] [...] 8.5 Gm, 5 Refills, 05/29/21 17:13:00 EDT, [facility] #[id number], 17, INHALE 2 PUFFS BY MOUTH EVERY [...] 0 Refills, Maintenance, 01/11/22 7:25:00 EDT, Capsule, [facility], Partial fill upon patient request if the prescription is for a schedule II opioid drug., 159, cm, 01/11/22 6:35:0... Start Date: 01/11/22 Stop Date: 02/10/22 Status: Ordered cloNIDine 0.1 mg oral tablet See Instructions, TAKE 1 TABLET BY MOUTH TWICE A DAY NEEDED FOR FOR ANXIETY, # 60 tablet, Refills 0, Instructions Replace Required Details, Route to Pharmacy Electronically, [facility], 165, cm, 01/06/22 14:35:00 EDT, Height, 102.1, kg, ... Start Date: 01/09/22 Status: Ordered colchicine 0.6 mg oral tablet 0.6 mg, 1, tablet, By Mouth, Daily, # 30 tablet, Refills 11, Tot. Refills 11, Maintenance, :00:00 EDT, Route to Pharmacy Electronically, [facility], Partial fill upon patient [...] 01/11/22 7:25:00 EDT, Route to Pharmacy Electronically, [facility], Partial fill upon patient request if the prescri... Start Date: 01/11/22 Stop Date: 02/10/22 Status: Ordered duloxetine 20 mg oral enteric coated capsule 2 capsule = 40 mg, By Mouth, Daily at bedtime, # 60 capsule, 11 Refills, Maintenance, 06/25/21 12:00:00 EST, Capsule, [facility], Partial fill upon patient [...] Replace Required Details, Route to Pharmacy Electronically, [facility], 165, cm, 06/25/21 11:35:00 [...] 12/11/21 13:41:00 EDT, Route to Pharmacy Electronically, [facility], Partial fill upon patient [...] 03/05/22 16:36:00 EDT, 12/03/21 16:35:00 EDT, [place], [facility] #[id number], Partial fill uponpatient request if the prescription [...] PROPHYLAXIS., # 60 tablet, 6 Refills, [facility], [facility], cm, 11/08/21 10:02:00 EDT, Height, 127, kg, 02/03/20 14:39:00 EDT, Dry Weight Start Date: 11/15/21 Status: Ordered rOPINIRole 0.5 mg oral tablet 1 tablet, By Mouth, 3 times a day, # 90 tablet, 5 Refills, 11/08/21 9:01:00 EDT, [facility], [facility], cm, 11/04/21 8:42:00 EDT, Height, 127, kg, 02/03/20 14:39:00 EDT, Dry Weight Start Date: 11/08/21 Status: Ordered rosuvastatin 10 mg oral tablet See Instructions, TAKE 1 TABLET BY MOUTH DAILY, # 90 tablet, 1 Refills, Maintenance, 10/18/21 21:30:00 EDT, [facility], 165, cm, 09/04/21 14:01:00 [...] 0 Refills, Maintenance, 01/11/22 7:24:00 EDT, Tablet, [facility], Partial fill upon [...]
--- OUTSIDE RECORDS SUMMARY | 2024-01-02 21:35 | XMS_ITS | Continuity of Care Document ---
Author Organization [facility] Robin Jane Nolberto lt Address [address] [place] [address]- Care Team Providers Care Rider Ticket Worker Name Role Phone Fuentes Garcia MD Primary Care Physician [phone] [place] [facility] 04/[place]20 - 05/07/20 [facility] Robin Bolañosley Adult [address] [place] [address]- [facility] Encounter Diagnosis Paroxysmal atrial flutter(Discharge Diagnosis) - 04/30/20 Bipolar disorder NOS(Discharge Diagnosis) - 04/30/20 Anticoagulant long-term use(Discharge Diagnosis) - 04/30/20 Chronic obstructive pulmonary disease (COPD)(Discharge Diagnosis) - 04/30/20 Chronic pain syndrome(Discharge Diagnosis) - 04/30/20 DVT - Deep vein thrombosis, post surgical 2010, left leg(Discharge Diagnosis) - 04/30/20 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 Start Date: 12/06/19 Status: Ordered Claritin 10 mg oral tablet 10 mg, 1, tablet, By Mouth, Daily, for 30 days, # 30 tablet, Refills 11, Tot. Refills 11, Acute 05/11/20 17:36:41 EDT, 05/17/19 17:36:41 EDT, Route to Pharmacy Electronically, [id number], [facility] - [address] [place] [address] Start Date: 05/17/19 Stop Date: 05/11/20 Status: Ordered colchicine 0.6 mg oral tablet See Instructions, take 1 tablet by mouth once daily if needed for PSEUDOGOUT pain, # 30 tablet, Refills 5, Tot. Refills 5, Soft Stop, 01/05/20 8:41:00 EDT, Instructions Replace Required Details, Route to Pharmacy Electronically, [facility]... Start Date: 01/05/20 Status: Ordered [...] Gm, 1 Refills, Maintenance, 12/20/19 16:30:00 EDT, [facility] #[id number], 162, cm, 09/21/19 12:01:00 EST, Height, 116.4, [...] 5 Refills, Maintenance, 10/01/18 10:08:42 EST, [place], 2 sprays Nares, Both 2 times a [...] 03/22/20 16:34:00 EDT, Route to Pharmacy Electronically, [facility] #[id number], 165, cm, 02/02/2014:39:00 EDT, Height, 127, kg, [...] 0 Refills, Maintenance, 04/23/20 12:56:00 EDT, Tablet, [facility] #[id number], 04/24/20, 165, cm, 02/03/20 14:39:00 EDT, He... [...] 5 Refills, Maintenance, 04/30/20 15:13:00 EDT, Tablet, [facility] #[id number], 165, cm, 04/30/20 14:30:00 EDT, Height, 127, kg, 02/03/20 14:39:00 EDT, Dry Weight Start Date: 04/30/20 Status: Ordered rosuvastatin 10 mg oral tablet 1 tablet = 10 mg, By Mouth, Daily, # 90 tablet, 3 Refills, Maintenance, 05/03/20 16:35:00 EDT, Tablet, [facility] #[id number], d/c rx for capsules, 165, cm, 04/30/20 14:30:00 EDT, Height, 127, kg, 02/03/20 14:39:00 EDT, Dry Weight Start Date: 05/03/20 Status: Ordered Ventolin HFA 108 mcg/inh inhalation aerosol with adapter 2 puffs, Inhalation, Every 4 hours, PRN Wheezing/Shortness of Breath, # 1 each, 11 Refills, Soft Stop, 01/19/20 11:46:00 EDT, [facility] #[id number], 165, cm, 01/16/20 6:17:00 EDT, Height, 128.1, kg, 01/16/20 6:17:00 EDT, Dry Weight Start Date: 01/19/20 Status: Ordered warfarin 5 mg oral tablet 1 tablet = 5 mg, By Mouth, Daily, dosing subject to change pending inr lab values, # 30 tablet, 5 Refills, Maintenance, 02/15/20 13:21:00 EDT, Tablet, [facility] #[id number], 165, cm, 02/03/20 14:39:00 EDT, Height, 127, [...] Service Informant Bipolar disorder NOS Discharge Diagnosis 04/30/20 Paroxysmal atrial flutter Discharge Diagnosis 04/30/20 Anticoagulant long-term use Discharge Diagnosis 04/30/20 Chronic obstructive pulmonary disease (COPD) Discharge Diagnosis 04/30/20 Chronic pain syndrome Discharge Diagnosis 04/30/20 DVT - Deep vein thrombosis, post surgical 2009, left leg Discharge Diagnosis 04/30/20 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 Discharge Diagnosis 04/30/20 Arthritis of knee - bilateral Discharge Diagnosis 04/30/20 Vital Signs Most recent to oldest [Reference Range]: 1 Height 165 cm (04/30/20 2:30 PM) Weight 127.2 kg (04/30/20 2:30 PM) Oxygen Saturation [94-100 %] 98 % (04/30/20 2:30 PM) Pulse Rate [55-90 bpm] 82 bpm (04/30/20 2:30 PM) Body Mass Index [18.5-24.99] 46.72 *>HHI* (04/30/20 2:30 PM) Blood Pressure [90-138/55-84 mm Hg] 110/ 74mm Hg (04/30/20 2:30 PM) Temperature [96.8-100.4 DegF] 98.3 DegF (04/30/20 2:30 PM) Mode of Delivery (Oxygen) Room air (04/30/20 2:30 PM) Blood pressure sites Arm, right (04/30/20 2:30 PM) Temperature Route Oral (04/30/20 2:30 PM) Weight Obtained Via Standing scale (04/30/20 2:30 PM) Social History Social History Type Response Smoking Status 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
--- OUTSIDE RECORDS SUMMARY | 2024-01-02 21:35 | XMS_ITS | Continuity of Care Document ---
Author Organization [facility] Robin Jane Nolberto Address [address] [place] [address]- Care Team Providers Care Counter Pocket Trimmer Name Role Phone Kyle Ahumada DO Primary Care Physician [place] [facility] [place]23 [place] 03/09/23 [facility] Robin Bolañosley Adult [address] [place] [address]- Attending Physician: Kyle Ahumada DO Allergies, Adverse [...] vaccine, inactivated 05/10/07 Jarrett rded SARS-CoV-2 mRNA (etgorip-lssq-lvbgx) vax 08/30/21 Recorded SARS-CoV-2 (COVID-19) mRNA BNT-162b2 vac 01/02/21 Recorded SARS-CoV-2 (COVID-19) mRNA BNT-162b2 vac 12/02/20 Recorded Fluvirin (oldterm) 8 03/22/15 Given Fluzone Preservative-Free (oldterm) 9 03/12/12 Giv en pneumococcal 23-valent vaccine 10/08/11 Given tetanus/diphtheria/pertussis, acel(Tdap) 09/08/11 Given tetanus/diphtheria/pertussis, acel(Tdap) 12/17/06 Recorded influ virus vac, H1N1, inactive(oldterm) 10 05/08/11 Given hepatitis B adult vaccine 06/14/02 Recorded 1Result Comment: [id number] 2Result Comment: [id number] 3Result Comment: [id number] 4Result Comment: [id number] 5Result Comment: [07/08/2017] [id number] 6Admin Note: [facility] 7Admin Note: [facility] [...] Gm, 4 Refills, Maintenance, 09/08/22 14:55:00 EST, [facility], 30, INHALE 2 PUFFS BY MOUTH [...] 10/03/22 11:23:00 EST, Route to Pharmacy Electronically, [facility], 160,cm, 09/09/22 14:31:00 EST, Height, 98.8, kg, 07/17/... Start Date: 10/03/22 Status: Ordered cyclobenzaprine 5 mg oral tablet 1 tablet = 5 mg, By Mouth, 3 times a day, # 45 tablet, 1 Refills, Maintenance, 03/03/23 9:27:00 EDT, Tablet, [facility], Partial fill upon patient request [...] 01/11/22 7:25:00 EDT, Route to Pharmacy Electronically, [facility], Partial fill upon patient request if the prescri... Start Date: 01/11/22 Stop Date: 02/10/22 Status: Ordered duloxetine 20 mg oral enteric coated capsule 2 capsule = 40 mg, By Mouth, Daily at bedtime, # 60 capsule, 11 Refills, Maintenance, 06/25/21 12:00:00 EST, Capsule, [facility], Partial fill upon patient request [...] 03/02/23 18:12:00 EDT, Route to Pharmacy Electronically, [facility], Partial fill upon patient request if the prescription is for a schedule II opioid drug... Start Date: 03/02/23 Status: Ordered ipratropium nasal 21 mcg/inh spray 2 sprays = 42 mcg, Nares, Both, 2 times a day, # 30 mL, 5 Refills, Acute 03/16/23 6:08:00 EDT, 10/14/22 6:08:00 EDT, [place], [facility] #[id number], Partial fill upon patient request if the [...] 02/07/23 18:12:00 EDT, Route to Pharmacy Electronically, [facility], 160, cm, 12/16/22 10:46:00 EDT, Height, [...] 5 Refills, Maintenance, 11/06/22 17:25:00 EDT, Tablet, [facility], Partial fill upon patient request if the prescription is for a schedule II opioid drug., 160, c... Start Date: 11/06/22 Stop Date: 05/05/23 Status: Ordered rOPINIRole 0.5 mg oral tablet 1 tablet, By Mouth, 3 times a day, ^1R1,1R3,1R4., # 90 tablet, 5 Refills, Maintenance, 12/24/22 14:21:00 EDT, [facility], 160, cm, 12/16/22 10:46:00 EDT, Height, 98.8, kg, 07/17/22 8:58:00 EST, Dry Weight Start Date: 12/24/22 Status: Ordered rosuvastatin 10 mg oral tablet 1 tablet, By Mouth, Daily, ^1R1., # 30 tablet, 5 Refills, Maintenance, 02/07/23 18:12:00 EDT, [facility], 160, cm, 12/16/22 10:46:00 EDT, Height, 98.8, kg, 07/17/22 8:58:00 EST, Dry Weight Start Date: 02/07/23 Status: Ordered Symbicort 80mcg/4.5mcg Inhaler See Instructions, INHALE 2 PUFFS BY MOUTH TWICE A DAY RINSE MOUTH AND THROAT AFTER USE, # 10.2 Gm, Refills 5, Maintenance, 07/30/22 21:16:00 EST, Instructions Replace Required Details, [id number]... Start Date: 07/30/22 Status: Ordered Xarelto 20 mg oral tablet 1 tablet = 20 mg, By Mouth, Daily at supper, # 90 tablet, 1 Refills, Maintenance, 03/02/23 18:12:00EDT, Tablet, [facility], pt was rx'd w diltiazem on [...] Confirmed Active Gastric banding status Confirmed Active [facility] current use of opiate analgesic Confirmed Active [...] oldest [Reference Range]: 1 Height 160 cm (03/02/23 9:56 AM) Weight 110.2 kg (03/02/23 9:56 AM) Oxygen Saturation [94-100 %] 98 % (03/02/23 9:56 AM) Pulse Rate [55-90 bpm] 125 bpm *H* (03/02/23 9:56 AM) Body Mass Index [18.5-24.99 kg/m2] 43.05 kg/m2 *>HHI* (03/02/23 9:56 AM) Blood Pressure [90-138/55-84 mm Hg] 93/8 1mm Hg (03/02/23 9:56 AM) Temperature [96.8-100.4 DegF] 97.5 DegF (03/02/23 9:56 AM) Blood pressure sites Arm, left (03/02/23 9:56 AM) Social History Social History Type Response Smoking Status 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 Female Note * Megit , Sindy: PERFORM, SIGN, VERIFY Event Display: Patient Education/Instruction Authored Date: [id number] [facility] *[facility] [place] [facility] Clinical Summary Name FRANKLIN HARRISON Age 57 Years 1965 PCP Kyle Ahumada DO PCP Visit Date 03/02/2023 09:44:00 Additional Instructions: Scheduled Appointments?? Future Appointments ?*[facility] ?[address] ?Phone:??--?Fax:??-- ?Appt. Date:??05/06/2023?8:50 AM ?Scheduled Provider:??Kyle Ahumada DO Follow-Up Instructions ?? Diagnosis Medications: Please continue your medications until treatment is completed or stopped by your provider. Discuss any questions related to medications with your provider. Medications to Continue Taking That Have Changed These medications were not printed or sent to your pharmacy - Diltiazem (DilTIAZem (Eqv-Dilacor XR) 240 mg/24 hours oral capsule, extended release) 1 capsule. Next Dose: Medications to Continue with No Changes These medications were not printed or sent to your pharmacy Acetaminophen (acetaminophen 325 mg oral tablet) 650 Milligram Oral every 6 hours. May take OTC, follow directions on bottle. Next Dose: Albuterol (Albuterol (Eqv-ProAir HFA) 90 mcg/inh inhalation aerosol) INHALE 2 PUFFS BY MOUTH EVERY FOUR HOURS NEEDED FOR WHEEZING OR SHORTNESS OF BREATH. Refills: 4. Next Dose: amiODARONE (amiodarone 200 mg oral tablet) Next Dose: Budesonide-Formoterol (Symbicort 80mcg/4.5mcg Inhaler) INHALE 2 PUFFS BY MOUTH TWICE A DAY RINSE MOUTH AND THROAT AFTER USE. Refills: 5. Next Dose: Clonidine (cloNIDine 0.1 mg oral tablet) 1 tab(s) Oral twice a day as needed NEEDED FOR FOR ANXIETY (VIAL) ^VIAL. Refills: 2. Next Dose: Docusate (docusate sodium 100 mg oral capsule) 1 capsule Oral twice a day for 30 Days. hold for loose stool. Refills: 0. Next Dose: Duloxetine (duloxetine 20 mg oral enteric coated capsule) 2 capsule Oral Daily at Bedtime. Refills:11. Next Dose: Duloxetine (duloxetine 60 mg oral enteric coated capsule) 1 capsule Oral Daily in the morning. Next Dose: Furosemide (furosemide 40 mg oral tablet) Next Dose: Ipratropium Nasal (ipratropium nasal 21 [...] 21 mg/24 hr transdermal film, extended release) Next Dose: penicillin V potassium (penicillin V potassium 250 mg oral tablet) 1 tab(s) Oral twice a day for 30Days. CELLULITIS PROPHYLAXIS. Refills: 5. Next Dose: rivaroxaban (Xarelto 20 mg oral tablet) 1 tab(s) Oral Daily in PM. with evening meal. Next Dose: Ropinirole (rOPINIRole 0.5 mg oral tablet) 1 tab(s) Oral 3 times a day. ^1R1,1R3,1R4.. Refills: 5. Next Dose: Rosuvastatin (rosuvastatin 10 mg oral tablet) 1 tab(s) Oral Daily. ^1R1.. Refills: 5. Next Dose: No Longer Take the Following Medications Al Hydroxide/Mg Hydroxide/Simethicone (Maalox Plus Liquid) 30 Milliliter Oral every 4 hours as needed Other. Heartburn. Colchicine (colchicine 0.6 mg oral tablet) 1 tab(s) Oral Daily. ^1R1.. Refills: 11. dronedarone (Multaq 400 mg oral tablet) 1 tab(s) Oral twice a day. ^1R1,1R4.. Refills: 5. PredniSONE (predniSONE 10 mg oral tablet) 1 tab(s) Oral Daily. ^1R1.. Refills: 2. Allergy Info:?? Dust; Adhesive Bandage Medications Given This Visit Future Orders ?No future orders Vital Signs Height 160 cm Weight 110.2 kg BMI 43.05 kg/m2 Blood Pressure 93 mm Hg/81 mm Hg Temperature 97.5 DegF Pulse Rate 125 bpm Respiratory Rate 02 Sat Mode of Delivery 98 %/ You can now view a summary of your hospital visit from the comfort of your home through a free online portal called [employer]. [employer] is a website that allows you to securely view your medical information including discharge summary, medications and follow-up visits. ??You can alsosend a secure electronic message to your doctor???s office to request appointments, renew medications or just ask a question. You can enroll at [email or web address] or register during your next office visit. [...] primary care provider, you may find a [facility] provider by calling [facility] [employer] Link at [phone]. For information about the plan of care [...] Member Role: Primary Care Nurse Address: Address: [address] [place] [address] [place] [address]- [place] Name: Marley Alejo RN Position: [facility] RN Member Role: Primary Care Nurse Name: Alma Delia Fonseca PharmD Position: [facility] Associate Professional Member Role: [employer] Provider Address: Address: [address] [place] [address]- [place] Name: Yolis Mattson RN Position: [facility] RN Member Role: Primary Care Nurse Name: Priscila Garzon RN Position: [facility] RN Member Role: Primary Care Nurse Name: Kyle Ahumada DO Position: [facility] Physician - Primary Care Member Role: PCP Address: Address: [address] [place] [address]- [place] Name: Renea Mart RN Position: [facility] RN Member Role: Primary Care Nurse Care Team Related Persons Name: AYDENYOHANNESFAUZIA Address: home [address] [place] [address] Name: AURELIA SHETH Address: home [address] [place] [address] Name: BRE OSORIO Address: home [address] [place] [address]
--- OUTSIDE RECORDS SUMMARY | 2024-01-02 21:35 | XMS_ITS | Continuity of Care Document ---
Author Organization [facility] [place] Nolberto lt Address [address] [place] [address]- Care Team Providers Care Manager Clinical Name Role Phone Fuentes Garcia MD Primary Care Physician [facility]counter [facility] Date(s): 04/30/20 - 05/30/20 [facility] Adult [address] [place] [address]- [facility] Attending Physician: Admtr, [id number] Admitting Physician: Admtr, [...] H1N1, inactive(oldterm) 8 05/08/11 Given 1Result Comment: [id number] 2Result Comment: [id number] 3Result Comment: [07/08/2017] [id number] 4Admin Note: [facility] 5Admin Note: [facility] [...] 12/06/19 9:16:00 EDT, Route to Pharmacy Electronically, [facility] #[id number], please schedule appt for further refills, 162, cm, 09/21/19 12:01:00 Laurie SPAIN... Start Date: 12/06/19 Status: Ordered colchicine 0.6 mg oral tablet See Instructions, take 1 tablet by mouth once daily if needed for PSEUDOGOUT pain, # 30 tablet, Refills 5, Tot. Refills 5, Soft Stop, 01/05/20 8:41:00 EDT, Instructions Replace Required Details, Route to Pharmacy Electronically, [facility] #... Start Date: 01/05/20 Status: Ordered [...] Gm, 1 Refills, Maintenance, 12/20/19 16:30:00 EDT, [facility] #[id number], 162, cm, 09/21/19 12:01:00 EST, Height, 116.4, [...] mL, 5 Refills, Maintenance, 10/01/18 10:08:42 EST, [place], 2 sprays Nares, Both 2 times a [...] 03/22/20 16:34:00 EDT, Route to Pharmacy Electronically, [facility] #[id number], 165, cm, 02/02/2014:39:00 EDT, Height, 127, kg, [...] AMOUNT, # 84 tablet, 0 Refills, Maintenance, 05/21/20 17:22:00 EDT, Tablet, [facility] #[id number], 05/22/20, 165, cm, 05/16/20 14:15:00 EDT, He... Start Date: 05/21/20 Stop Date: 06/18/20 Status: Ordered penicillin V potassium 250 mg [...] 5 Refills, Maintenance, 04/30/20 15:13:00 EDT, Tablet, [facility] #[id number], 165, cm, 04/30/20 14:30:00 EDT, Height, 127, kg, 02/03/20 14:39:00 EDT, Dry Weight Start Date: 04/30/20 Status: Ordered rosuvastatin 10 mg oral tablet 1 tablet = 10 mg, By Mouth, Daily, # 90 tablet, 3 Refills, Maintenance, 05/03/20 16:35:00 EDT, Tablet, [facility] #76606, d/c rx for capsules, 165, cm, 04/30/20 14:30:00 EDT, Height, 127, kg, 02/03/20 14:39:00 EDT, Dry Weight Start Date: 05/03/20 Status: Ordered Ventolin HFA 108 mcg/inh inhalation aerosol with adapter 2 puffs, Inhalation, Every 4 hours, PRN Wheezing/Shortness of Breath, # 1 each, 11 Refills, Soft Stop, 01/19/20 11:46:00 EDT, [facility] #67183, 165, cm, 01/16/20 6:17:00 EDT, Height, 128.1, kg, 01/16/20 6:17:00 EDT, Dry Weight Start Date: 01/19/20 Status: Ordered warfarin 5 mg oral tablet 1 tablet = 5 mg, By Mouth, Daily, dosing subject to change pending inr lab values, # 30 tablet, 5 Refills, Maintenance, 02/15/20 13:21:00 EDT, Tablet, [facility] #[id number], 165, cm, 02/03/20 14:39:00 EDT, Height, 127, [...]
--- OUTSIDE RECORDS SUMMARY | 2024-01-02 21:35 | XMS_ITS | Continuity of Care Document ---
Author Organization [facility] Address [address] [place] [address]- Care Team Providers Care Filling Hauler Name Role Phone Fuentes Garcia MD Primary Care Physician [facility] Date(s): 06/27/20 - 07/27/20 [facility] [address] [place] [address]- Attending Physician: AdmtrDesire Admitting Physician: AdmtrDesire Referring [...] H1N1, inactive(oldterm) 8 05/08/11 Given 1Result Comment: [id number] 2Result Comment: [id number] 3Result Comment: [07/08/2017] [id number] 4Admin Note: [facility] 5[facility] Note: [facility] [...] 5 Refills, Maintenance, 07/03/20 9:16:00 EST, [place], [facility][id number], Partial fill upon patient request if the [...] 06/04/20 12:56:00 EST, Route to Pharmacy Electronically, [facility] #[id number], please schedule appt for further refills, 165, cm, 05/16/20 14:15:00 EDT, Hei... Start Date: 06/04/20 Status: Ordered colchicine 0.6 mg oral tablet See Instructions, take 1 tablet by mouth once daily if needed for PSEUDOGOUT pain, # 30 tablet, Refills 5, Tot. Refills 5, Soft Stop, 01/05/20 8:41:00 EDT, Instructions Replace Required Details, Route to Pharmacy Electronically, [facility] #... Start Date: 01/05/20 Status: Ordered [...] Gm, 3 Refills, Maintenance, 06/22/20 14:58:00 EST, [facility] #[id number], 165, cm, 06/07/20 13:52:00 EST, Height, 127, [...] mL, 5 Refills, Maintenance, 10/01/18 10:08:42 EST, [place], 2 sprays Nares, Both 2 times a [...] tablet, 1 Refills, Maintenance, 07/12/20 13:56:00 EST, [facility][id number], Partial fill upon patient request if the prescription is for a schedule II opioid drug., 165, cm, 07/11/20 15:24:00 EST,... Start Date: 07/12/20 Stop Date: 07/05/21 Status: Ordered metoprolol 25 mg oral tablet 25 mg, 1, tablet, By Mouth, 2 times a day, # 60 tablet, Refills 5, Tot. Refills 5, Maintenance, 03/22/20 16:34:00 EDT, Route to Pharmacy Electronically, [facility] #[id number], 165, cm, 02/02/2014:39:00 EDT, Height, 127, kg, [...] 0 Refills, Maintenance, 06/18/20 16:57:00 EST, [place], [facility] #[id number], Partial fill upon patient request, 165, cm, 06/07/20 13:52:00 EST, Height, 127, kg, 02/03/20 14:39:00 EDT, Dry Weight Start Date: 06/18/20 Stop Date: 07/30/20 Status: Ordered NuLYTELY with Flavor Packs oral powder for reconstitution See Instructions, Drink 240mL every 15-20 minutes until first half is gone. Repeat 6 hours prior toprocedure., # 4,000 mL, 0 Refills, Maintenance, 06/28/20 17:09:00 EST, [facility][id number],Partial fill upon patient request if the prescript... Start Date: 06/28/20 Status: Ordered oxyCODONE 10 mg oral tablet 1 tablet = 10 mg, By Mouth, Every 8 hours, DX Z79.891 G89.29 M47.816 OK TO FILL LESS THAN PRESCRIBED AMOUNT, # 84 tablet, 0 Refills, Maintenance, 07/16/20 17:18:00 EST, Tablet, [facility] #[id number], 07/17/20, 165, cm, 07/11/20 15:24:00 EST, He... [...] 5 Refills, Maintenance, 04/30/20 15:13:00 EDT, Tablet, [facility] #[id number], 165, cm, 04/30/20 14:30:00 EDT, Height, 127, kg, 02/03/20 14:39:00 EDT, Dry Weight Start Date: 04/30/20 Status: Ordered rosuvastatin 10 mg oral tablet 1 tablet = 10 mg, By Mouth, Daily, # 90 tablet, 3 Refills, Maintenance, 05/03/20 16:35:00 EDT, Tablet, [facility] #[id number], d/c rx for capsules, 165, cm, 04/30/20 14:30:00 EDT, Height, 127, kg, 02/03/20 14:39:00 EDT, Dry Weight Start Date: 05/03/20 Status: Ordered Ventolin HFA 108 mcg/inh inhalation aerosol with adapter 2 puffs, Inhalation, Every 4 hours, PRN Wheezing/Shortness of Breath, # 1 each, 11 Refills, Soft Stop, 01/19/20 11:46:00 EDT, [facility] #[id number], 165, cm, 01/16/20 6:17:00 EDT, Height, 128.1, kg, 01/16/20 6:17:00 EDT, Dry Weight Start Date: 01/19/20 Status: Ordered warfarin 5 mg oral tablet 1 tablet = 5 mg, By Mouth, Daily, dosing subject to change pending inr lab values, # 30 tablet, 5 Refills, Maintenance, 02/15/20 13:21:00 EDT, Tablet, [facility] #[id number], 165, cm, 02/03/20 14:39:00 EDT, Height, 127, [...]
--- OUTSIDE RECORDS SUMMARY | 2024-01-02 21:35 | XMS_ITS | Continuity of Care Document ---
Author Organization [facility] Address [address] [place] [address]- Care Team Providers Care Fitness Consultant Name Role Phone Krishan GRIDER, Eulogio Molina Primary Care Physician Encounter [facility] Date(s): 12/24/21 - 01/23/22 [facility] [address] [place], [place] [address] Attending Physician: Admtr, Allan8 Admitting Physician: Admtr, Ar8 Referring Physician: Admtr, Ar8 Allergies, Adverse Reactions, Alerts Substance Reaction Severity Status Adhesive Bandage Active Dust copd exac/sinus congestion A ctive Immunizations Given and Recorded Vaccine Date Status Refusal Reason SARS-CoV-2 mRNA (tvviiix-[id number]-klyoo) vax 08/30/21 Recorded influenza virus vaccine, inactivated [...] B adult vaccine 06/14/02 Recorded 1Result Comment: [id number] 2Result Comment: [id number] 3Result Comment: [id number] 4Result Comment: [07/08/2017] [id number] 5Admin Note: [facility] 6Admin Note: [facility] [...] 8.5 Gm, 5 Refills, 05/29/21 17:13:00 EDT, [id number], 17, INHALE 2 PUFFS BY MOUTH EVERY [...] 0 Refills, Maintenance, 01/11/22 7:25:00 EDT, Capsule, [facility], Partial fill upon patient [...] to Pharmacy Electronically, [facility], 165, cm, 01/06/22 14:35:00 EDT, Height, 102.1, kg, ... Start Date: 01/09/22 Status: Ordered colchicine 0.6 mg oral tablet 0.6 mg, 1, tablet, By Mouth, Daily, # 30 tablet, Refills 11, Tot. Refills 11, Maintenance, :00:00 EDT, [place] Pharmacy [facility], [facility] [...] 01/11/22 7:25:00 EDT, Route to Pharmacy Electronically, [facility], Partial fill upon patient request if the prescri... Start Date: 01/11/22 Stop Date: 02/10/22 Status: Ordered duloxetine 20 mg oral enteric coated capsule 2 capsule = 40 mg, By Mouth, Daily at bedtime, # 60 capsule, 11 Refills, Maintenance, 06/25/21 12:00:00 EST, Capsule, [facility], Partial fill upon [...] to Pharmacy Electronically, [facility], 165, cm, 06/25/21 11:35:00 [...] 12/11/21 13:41:00 EDT, Route to Pharmacy Electronically, [facility] [...] 03/05/22 16:36:00 EDT, 12/03/21 16:35:00 EDT, Gum, [facility] #[id number], Partial fill uponpatient request if the prescription [...] CELLULITIS PROPHYLAXIS., # 60 tablet, 6 Refills, [facility], 165, cm, 11/08/21 10:02:00 EDT, Height, 127, kg, 02/03/20 14:39:00 EDT, Dry Weight Start Date: 11/15/21 Status: Ordered rOPINIRole 0.5 mg oral tablet 1 tablet, By Mouth, 3 times a day, # 90 tablet, 5 Refills, 11/08/21 9:01:00 EDT, [facility], 165, cm, 11/04/21 8:42:00 EDT, Height, 127, kg, 02/03/20 14:39:00 EDT, Dry Weight Start Date: 11/08/21 Status: Ordered rosuvastatin 10 mg oral tablet See Instructions, TAKE 1 TABLET BY MOUTH DAILY, # 90 tablet, 1 Refills, Maintenance, 10/18/21 21:30:00 EDT, [facility], 165, cm, 09/04/21 14:01:00 [...] 0 Refills, Maintenance, 01/11/22 7:24:00 EDT, Tablet, [facility], Partial fill upon [...] use(Confirmed) Active Gastric banding status(Confirmed) Active 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
--- OUTSIDE RECORDS SUMMARY | 2024-01-02 21:35 | XMS_ITS | Continuity of Care Document ---
Author Organization [facility] [place] Address [address] [place] [address]- Care Team Providers Care Police Reserves Commander Name Role Phone Fuentes Garcia MD Primary Care Physician [phone] Encounter [facility] Date(s): 05/17/21 - 06/16/21 [facility] [address] [place] [address]- Allergies, Adverse Reactions, Alerts Substance Reaction Severity [...] B adult vaccine 06/14/02 Recorded 1Result Comment: [id number] 2Result Comment: [id number] 3Result Comment: [07/08/2017] [id number] 4Admin Note: [facility] 5Admin Note: [facility] [...] 8.5 Gm, 5 Refills, 05/29/21 17:13:00 EDT, [facility] #[id number], 17, INHALE 2 PUFFS BY MOUTH EVERY [...] 11 Refills, Maintenance, 10/31/20 14:14:00 EDT, Cream, [facility] #[id number], Partial fill upon patient request if the [...] 04/09/21 14:32:00 EDT, Route to Pharmacy Electronically, [facility], 165, cm, 02/28/21 14:22:00 EDT, Height, [...] PMR, history of smoking fax to : [phone], 04... Start Date: 10/26/20 Status: Ordered Disposable [...] Gm, 3 Refills, Maintenance, 06/22/20 14:58:00 EST, [facility] #[id number], 165, cm, 06/07/20 13:52:00 EST, Height, 127, [...] Refills, Maintenance, 05/24/21 16:13:00 EDT, REC Powder, [facility] #[id number], Partial fill upon patient request if the [...] mL, 5 Refills, Maintenance, 10/01/18 10:08:42 EST, Ellery, 2 sprays Nares, Both 2 times a [...] 08/02/20 16:13:00 EST, Route to Pharmacy Electronically, [facility] #[id number], D/C RX ON FILE FOR CLARITAN, 165, [...] tablet, 6Refills, Maintenance, 05/21/21 11:19:00 EDT, Tablet, [facility], Partial fill upon patient request if the prescription is for a schedule II... Start Date: 05/21/21 Status: Ordered methenamine hippurate 1 gm oral tablet 1 tablet = 1 Gm, By Mouth, 2 times a day, # 60 tablet, 11 Refills, Maintenance, 07/05/21 14:00:00 EST, [facility], Partial fill upon patient request if the prescription is for a schedule II opioid drug., 165, cm, 02/28/21 14:22:00 EDT, Height,... Start Date: 07/05/21 Status: Ordered methenamine hippurate 1 gm oral tablet 1 tablet = 1 Gm, By Mouth, 2 times a day, # 60 tablet, 1 Refills, Hard Stop 07/05/21 14:00:00 EST, 07/12/20 13:56:00 EST, [facility] #[id number], Partial fill upon patient request if the prescription is for a schedule II opioid drug., 165, cm, 12... Start Date: 07/12/20 Stop Date: 07/05/21 Status: Ordered Metoprolol Tartrate 25 mg oral tablet 1 tablet, By Mouth, 2 times a day, # 60 tablet, 2 Refills, Maintenance, 03/07/21 10:08:00 EDT, [facility] #[id number], 165, cm, 02/28/21 14:22:00 EDT, Height, 127, kg, 02/03/20 14:39:00 EDT, DryWeight Start Date: 03/07/21 Status: Ordered Mitigare 0.6 mg oral capsule 1 capsule, By Mouth, Daily, # 30 capsule, 11 Refills, Maintenance, 12/31/20 16:51:00 EDT, [facility] #[id number], 165, cm, 11/19/20 11:32:00 EDT, Height, 127, [...] 0 Refills, Maintenance, 04/11/21 9:00:00 EDT, Patch, [facility], Partial fill upon patient request, 165, cm, 02/28/21 14:22:00 EDT, Height, 127, kg, 02/03/20 14:39:00 EDT, Dry Weight Start Date: 04/11/21 Stop Date: 05/23/21 Status: Ordered NuLYTELY with Flavor Packs oral powder for reconstitution See Instructions, Drink 240mL every 15-20 minutes until first half is gone. Repeat 6 hours prior toprocedure., # 4,000 mL, 0 Refills, Maintenance, 06/28/20 17:09:00 EST, [facility] #[id number],Partial fill upon patient request if the prescript... Start Date: 06/28/20 Status: Ordered oxyCODONE 10 mg oral tablet 1 tablet = 10 mg, By Mouth, Every 8 hours, DX Z79.891 G89.29 M47.816 OK TO FILL LESS THAN PRESCRIBED AMOUNT, # 84 tablet, 0 Refills, Maintenance, 06/13/21 17:00:00 EST, Tablet, [facility] #[id number], 06/18/21, 165, cm, 05/21/21 10:54:00 EDT, He... Start Date: 06/13/21 Stop Date: 07/11/21 Status: Ordered oxyCODONE 5 mg oral tablet 10 mg, 2, tablet, By Mouth, Every 8 hours, DX Z79.891 G89.29 M47.816 OK TO FILL LESS THAN PRESCRIBED AMOUNT, # 168 tablet, Refills 0, Tot. Refills 0, Maintenance, 03/25/21 16:45:00 EDT, Route to Pharmacy Electronically, [facility] #[id number], D... Start Date: 03/25/21 Stop Date: 04/22/21 Status: Ordered penicillin V potassium 250 mg oral tablet 1 tablet = 250 mg, By Mouth, 2 times a day, Cellulitis prophylaxis, # 60 tablet, 11 Refills, Maintenance, 10/30/20 12:09:00 EDT, [facility] #[id number], 165, cm, 10/19/20 8:59:00 EDT, Height, 127, kg, 02/03/20 14:39:00 EDT, Dry Weight Start Date: 10/30/20 Status: Ordered predniSONE 5 mg oral tablet 1 tablet = 5 mg, By Mouth, Daily, # 30 tablet, 0 Refills, Maintenance, 01/11/21 14:20:00 EDT, Tablet, [facility] #[id number], Partial fill upon patient request if the [...] a day, # 90 tablet, 0 Refills, [facility] [place] [place], 165, cm, 05/21/21 10:54:00 EDT, Height, 127, kg, 02/03/20 14:39:00 EDT, Dry Weight Start Date: 06/11/21 Status: Ordered rosuvastatin 10 mg oral tablet 1 tablet = 10 mg, By Mouth, Daily, # 90 tablet, 1 Refills, Maintenance, 05/20/21 15:53:00 EDT, Tablet, [facility], d/c rx for capsules, 165, cm, 02/28/21 14:22:00 EDT, Height, 127, kg, 02/03/20 14:39:00 EDT, Dry Weight Start Date: 05/20/21 Status: Ordered Trulicity Pen 0.75 mg/0.5 mL subcutaneous solution 0.5 mL = 0.75 mg, Subcutaneous Injection, Every week, take on same day every week, rotate injectionsites E11.9, # 2 mL, 1 Refills, Maintenance, 05/21/21 11:18:00 EDT, Solution, [facility] #[id number], Partial fill upon patient request if the... Start Date: 05/21/21 Status: Ordered warfarin 2.5 mg oral tablet See Instructions, Dosing Subject To Change per INR Result per MD, # 30 each, 6 Refills, Maintenance, 06/12/21 17:09:00 EST, Tablet, [facility], Dosing Subject To Change per INR Result per MD,165, cm, 05/21/21 10:54:00 EDT, Height, 127, kg, 07... Start Date: 06/12/21 Status: Ordered warfarin 5 mg oral tablet See Instructions, Dosing Subject To Change Per INR Result per MD, # 30 each, 6 Refills, Maintenance, 06/12/21 17:05:00 EST, Tablet, [facility], PLEASE GIVE BOTH 5MG TABLETS AND [...]
--- OUTSIDE RECORDS SUMMARY | 2024-01-02 21:35 | XMS_ITS | Continuity of Care Document ---
Author Organization [facility] Address [address] [place] [address]- Care Team Providers Care Sprigger Name Role Phone Krishan GRIDER, Eulogio Molina Primary Care Physician [phone] Encounter [facility] Date(s): 11/20/21 - 12/20/21 [facility] [address] [place] [address]- Allergies, Adverse Reactions, Alerts Substance Reaction Severity Status Adhesive Bandage Active Dust copd exac/sinus congestion A ctive Immunizations Given and Recorded Vaccine Date Status Refusal Reason SARS-CoV-2 mRNA ([id number]-[id number]) vax 08/30/21 Recorded influenza virus vaccine, inactivated [...] B adult vaccine 06/14/02 Recorded 1Result Comment: [id number] 2Result Comment: [id number] 3Result Comment: [id number] 4Result Comment: [07/08/2017] [id number] 5Admin Note: [facility] 6Admin Note: [facility] [...] 8.5 Gm, 5 Refills, 05/29/21 17:13:00 EDT, [id number], 17, INHALE 2 PUFFS BY MOUTH EVERY 4 HOURS NEEDED FOR WHEEZING OR SHORTNE... Start Date: 05/29/21 Status: Ordered calcipotriene 0.005% topical cream 1 application, Topically, 2 times a day, # 60 Gm, 11 Refills, Maintenance, 11/15/21 11:54:00 EDT, Cream, [facility], Partial fill upon patient request if the prescription is for a schedule IIopioid drug., 1 application Topically 2 times a day... Start Date: 11/15/21 Status: Ordered colchicine 0.6 mg oral tablet 0.6 mg, 1, tablet, By Mouth, Daily, # 30 tablet, Refills 11, Tot. Refills 11, Maintenance, :00:00 EDT, Route to Pharmacy Electronically, [facility], Partial fill upon patient request if the prescription is for a schedule II opioid drTorey.. Start Date: 10/30/21 Status: Ordered cyclobenzaprine 10 mg oral tablet See Instructions, PRN, 1 tablet By Mouth 3 times a day as needed, # 20 tablet, Refills 0, Tot. Refills 0, Maintenance, for spasm, 11/08/21 10:23:00 EDT, Instructions Replace Required Details, Route to Pharmacy Electronically, [facility][id number]... Start Date: 11/08/21 Status: Ordered digoxin 0.125 mg oral tablet 125 mcg, 1, tablet, By Mouth, Daily, # 90 tablet, Refills 1, Tot. Refills 1, Maintenance, 12/11/21 13:41:00 EDT, Route to Pharmacy Electronically, [facility], Partial fill upon patient request if the prescription is for a schedule II opioid drTorey.. Start Date: 12/11/21 Status: Ordered duloxetine 20 mg oral enteric coated capsule 2 capsule = 40 mg, By Mouth, Daily at bedtime, # 60 capsule, 11 Refills, Maintenance, 06/25/21 12:00:00 EST, Capsule, [facility], Partial fill upon patient request if [...] 5 Refills, Maintenance, 11/18/21 13:49:00 EDT, Tablet, [facility], Partial fill upon patient request if [...] Required Details, Route to Pharmacy Electronically, [facility], 165, cm, 06/25/21 11:35:00 EST, Height, 127, kg, 02/03/20 14:39:00 EDT, Dry Weight Start Date: 08/05/21 Status: Ordered metoprolol 100 mg oral tablet, extended release 100 mg, 1, tablet, By Mouth, Daily, # 90 tablet, Refills 1, Tot. Refills 1, Maintenance, 12/11/21 13:41:00 EDT, Route to Pharmacy Electronically, [facility], Partial fill upon patient requestif the prescription is for a schedule II opioid keanu... Start Date: 12/11/21 Status: Ordered nicotine 4 mg oral transmucosal gum 1 each = 4 mg, Chew, Every 2 hours, PRN as needed for smoking cessation, # 160 each, 2 Refills, Acute 03/05/22 16:36:00 EDT, 12/03/21 16:35:00 EDT, Gum, [facility] #[id number], Partial fill uponpatient request if the prescription is for a schedu... Start Date: 12/03/21 Stop Date: 03/05/22 Status: Ordered NuLYTELY with Flavor Packs oral powder for reconstitution 240 mL, By Mouth, Every 10 minutes, # 1 each, 0 Refills, Maintenance, 10/25/21 10:39:00 EDT, REC Powder, [facility], Partial fill upon patient request if the prescription is for a schedule IIopioid drug., 240 mL By Mouth Every 10 minutes, 165... Start Date: 10/25/21 Status: Ordered penicillin V potassium 250 mg oral tablet 1 tablet, By Mouth, 2 times a day, CELLULITIS PROPHYLAXIS., # 60 tablet, 6 Refills, [facility], 165, cm, 11/08/21 10:02:00 EDT, Height, 127, kg, 02/03/20 14:39:00 EDT, Dry Weight Start Date: 11/15/21 Status: Ordered rOPINIRole 0.5 mg oral tablet 1 tablet, By Mouth, 3 times a day, # 90 tablet, 5 Refills, 11/08/21 9:01:00 EDT, [facility], 165, cm, 11/04/21 8:42:00 EDT, Height, 127, kg, 02/03/20 14:39:00 EDT, Dry Weight Start Date: 11/08/21 Status: Ordered rosuvastatin 10 mg oral tablet See Instructions, TAKE 1 TABLET BY MOUTH DAILY, # 90 tablet, 1 Refills, Maintenance, 10/18/21 21:30:00 EDT, [facility], 165, cm, 09/04/21 14:01:00 EST, Height, 127, kg, 02/03/20 14:39:00 EDT,Dry Weight Start Date: 10/18/21 Status: Ordered Spacer Spacer, See Instructions, # 1 each, Refills 0, Tot. Refills 0, Maintenance, Spacer, 12/19/21 9:15:00 EDT, Spacer for inhaler, Supply, 165, cm, 12/19/21 8:48:00 EDT, Height, 102.1, kg, 12/06/21 14:01:00 EDT, Dry Weight Start Date: 12/19/21 Status: Ordered warfarin 2.5 mg oral tablet See Instructions, Dosing Subject To Change per INR Result per MD, # 30 each, 6 Refills, Maintenance, 12/13/21 13:47:00 EDT, Tablet, [facility], Dosing Subject To Change per INR Result per MD,165, cm, 12/06/21 14:01:00 EDT, Height, 102.1, kg,... Start Date: 12/13/21 Status: Ordered warfarin 5 mg oral tablet See Instructions, Dosing Subject To Change Per INR Result per MD, # 30 each, 6 Refills, Maintenance, 12/13/21 14:01:00 EDT, Tablet, [facility], PLEASE GIVE BOTH 5MG TABLETS AND [...]
--- OUTSIDE RECORDS SUMMARY | 2024-01-02 21:35 | XMS_ITS | Continuity of Care Document ---
Author Organization [facility] Address [address] [place] [address]- Care Team Providers Care Public Speaking Teacher Name Role Phone Krishan GRIDER, Eulogio Molina Primary Care Physician Encounter [facility] Date(s): 01/06/22 - 02/05/22 [facility] Adult [address] [place] [address]- Allergies, Adverse Reactions, Alerts Substance Reaction Severity Status Adhesive Bandage Active Dust copd exac/sinus congestion A ctive Immunizations Given and Recorded Vaccine Date Status Refusal Reason SARS-CoV-2 mRNA (halcyau-[id number]-bwyet) vax 08/30/21 Recorded influenza virus vaccine, inactivated [...] B adult vaccine 06/14/02 Recorded 1Result Comment: [id number] 2Result Comment: [id number] 3Result Comment: [id number] 4Result Comment: [07/08/2017] [id number] 5Admin Note: [facility] 6Admin Note: [facility] [...] 8.5 Gm, 5 Refills, 05/29/21 17:13:00 EDT, [facility][id number], 17, INHALE 2 PUFFS BY MOUTH EVERY [...] 0 Refills, Maintenance, 01/11/22 7:25:00 EDT, Capsule, [facility], Partial fill upon patient [...] Route to Pharmacy Electronically, [facility], 165, cm, 01/06/22 14:35:00 EDT, Height, 102.1, kg, ... Start Date: 01/09/22 Status: Ordered colchicine 0.6 mg oral tablet 0.6 mg, 1, tablet, By Mouth, Daily, # 30 tablet, Refills 11, Tot. Refills 11, Maintenance, :00:00 EDT, Route to Pharmacy Electronically, [facility], Partial fill upon patient request [...] 01/11/22 7:25:00 EDT, Route to Pharmacy Electronically, [facility], Partial fill upon patient request if the prescri... Start Date: 01/11/22 Stop Date: 02/10/22 Status: Ordered duloxetine 20 mg oral enteric coated capsule 2 capsule = 40 mg, By Mouth, Daily at bedtime, # 60 capsule, 11 Refills, Maintenance, 06/25/21 12:00:00 EST, Capsule, [facility], Partial fill upon patient request [...] Route to Pharmacy Electronically, [facility], 165, cm, 06/25/21 11:35:00 EST, [...] EDT, Route to Pharmacy Electronically, [facility], Partial fill upon patient requestif [...] 03/05/22 16:36:00 EDT, 12/03/21 16:35:00 EDT, Gum, [facility] #[id number], Partial fill uponpatient request if the prescription [...] CELLULITIS PROPHYLAXIS., # 60 tablet, 6 Refills, [facility], 165, cm, 11/08/21 10:02:00 EDT, Height, 127, kg, 02/03/20 14:39:00 EDT, Dry Weight Start Date: 11/15/21 Status: Ordered rOPINIRole 0.5 mg oral tablet 1 tablet, By Mouth, 3 times a day, # 90 tablet, 5 Refills, 11/08/21 9:01:00 EDT, [facility], 165, cm, 11/04/21 8:42:00 EDT, Height, 127, kg, 02/03/20 14:39:00 EDT, Dry Weight Start Date: 11/08/21 Status: Ordered rosuvastatin 10 mg oral tablet See Instructions, TAKE 1 TABLET BY MOUTH DAILY, # 90 tablet, 1 Refills, Maintenance, 10/18/21 21:30:00 EDT, [facility], 165, cm, 09/04/21 14:01:00 EST, [...] 0 Refills, Maintenance, 01/11/22 7:24:00 EDT, Tablet, [facility], Partial fill upon [...]
--- OUTSIDE RECORDS SUMMARY | 2024-01-02 21:35 | XMS_ITS | Continuity of Care Document ---
Author Organization [facility] Address [address] [place] [address]- Care Team Providers Care Local Intermodal Truck Driver Name Role Phone Fuentes Garcia MD Primary Care Physician [phone] Encounter [facility] Date(s): 01/31/20 - 03/01/20 [facility] [address] [place] [address]- [facility] Attending Physician: Desire Velasquez Admitting Physician: AdmtrDesire Referring Physician: Admtr, ArKathya Allergies, Adverse Reactions, Alerts Substance Reaction Severity [...] H1N1, inactive(oldterm) 7 05/08/11 Given 1Result Comment: [id number] 2Result Comment: [07/08/2017] [id number] 3Admin Note: [facility] 4Admin Note: [facility] [...] 12/06/19 9:16:00 EDT, Route to Pharmacy Electronically, [facility] #[id number], please schedule appt for further refills, 162, cm, 09/21/19 12:01:00 ESTLaurie... Start Date: 12/06/19 Status: Ordered Claritin 10 mg oral tablet 10 mg, 1, tablet, By Mouth, Daily, for 30 days, # 30 tablet, Refills 11, Tot. Refills 11, Acute 05/11/20 17:36:41 EDT, 05/17/19 17:36:41 EDT, [id number] [address] Start Date: 05/17/19 Stop Date: 05/11/20 Status: Ordered colchicine 0.6 mg oral tablet See Instructions, take 1 tablet by mouth once daily if needed for PSEUDOGOUT pain, # 30 tablet, Refills 5, Tot. Refills 5, Soft Stop, 01/05/20 8:41:00 EDT, Instructions Replace Required Details, Route to Pharmacy Electronically, [facility] #... Start Date: 01/05/20 Status: Ordered Disposable [...] Gm, 1 Refills, Maintenance, 12/20/19 16:30:00 EDT, [facility] #[id number], 162, cm, 09/21/19 12:01:00 EST, Height, 116.4, [...] mL, 5 Refills, Maintenance, 10/01/18 10:08:42 EST, [place], 2 sprays Nares, Both 2 times a [...] 09/28/19 11:53:00 EST, Route to Pharmacy Electronically, [facility] #[id number], 162, cm, 09/21/2011:01:00 EST, Height, 116.4, kg, [...] 0 Refills, Maintenance, 02/27/20 16:58:00 EDT, Tablet, [facility] #[id number], 02/28/20, 165, cm, 02/03/20 14:39:00 EDT, He... [...] 11 Refills, Soft Stop, 01/19/20 11:46:00 EDT, [facility] #[id number], 165, cm, 01/16/20 6:17:00 EDT, Height, 128.1, kg, 01/16/20 6:17:00 EDT, Dry Weight Start Date: 01/19/20 Status: Ordered warfarin 5 mg oral tablet 1 tablet = 5 mg, By Mouth, Daily, dosing subject to change pending inr lab values, # 30 tablet, 5 Refills, Maintenance, 02/15/20 13:21:00 EDT, Tablet, [facility] #[id number], 165, cm, 02/03/20 14:39:00 EDT, Height, 127, [...]
--- OUTSIDE RECORDS SUMMARY | 2024-01-02 21:35 | XMS_ITS | Continuity of Care Document ---
Author Organization [facility] Buck Nolberto Address [address] [place] [address]- Care Team Providers Care Electronic Scale Subassembler Name Role Phone Radha GRIDER, Fuentes Kenny Primary Care Physician [facility]counter [facility] Date(s): 12/03/20 - 01/02/21 [facility] [place] [address] [place] [address]- Allergies, Adverse Reactions, Alerts Substance Reaction Severity [...] H1N1, inactive(oldterm) 8 05/08/11 Given 1Result Comment: [id number] 2Result Comment: [id number] 3Result Comment: [07/08/2017] [id number] 4Admin Note: [facility] 5Admin Note: [facility] [...] 11 Refills, Maintenance, 10/31/20 14:14:00 EDT, Cream, [facility] #[id number], Partial fill upon patient request if the [...] 11/27/20 10:09:00 EDT, Route to Pharmacy Electronically, [facility] #[id number], please schedule appt for further refills, 165, cm, 11/19/20 11:32:00 EDT, Hei... Start Date: 11/27/20 Status: Ordered Claritin 10 mg oral tablet 10 mg, 1, tablet, By Mouth, Daily, for 90 days, # 90 tablet, Refills 3, Tot. Refills 3, Acute 07/28/21 15:22:00 EST, 08/02/20 15:22:00 EST, Route to Pharmacy Electronically, [facility] #[id number], 165, cm, 07/31/20 14:32:00 EST, Height, 127, [...] PMR, history of smoking fax to : [phone], 04... Start Date: 10/26/20 Status: Ordered Disposable [...] Gm, 3 Refills, Maintenance, 06/22/20 14:58:00 EST, [facility] #[id number], 165, cm, 06/07/20 13:52:00 EST, Height, 127, [...] mL, 5 Refills, Maintenance, 10/01/18 10:08:42 EST, [place], 2 sprays Nares, Both 2 times a [...] 08/02/20 16:13:00 EST, Route to Pharmacy Electronically, [facility] #[id number], D/C RX ON FILE FOR CLARITAN, 165, [...] tablet, 1 Refills, Maintenance, 07/12/20 13:56:00 EST, [facility] #[id number], Partial fill upon patient request if the prescription is for a schedule II opioid drug., 165, cm, 07/11/20 15:24:00 EST,... Start Date: 07/12/20 Stop Date: 07/05/21 Status: Ordered metoprolol 25 mg oral tablet 25 mg, 1, tablet, By Mouth, 2 times a day, # 60 tablet, Refills 5, Tot. Refills 5, Maintenance, 09/22/20 13:59:00 EST, Route to Pharmacy Electronically, [facility] #[id number], 165, cm, 07/31/2113:32:00 EST, Height, 127, kg, 02/03/20 14:39:00 ED... Start Date: 09/22/20 Status: Ordered Mitigare 0.6 mg oral capsule 1 capsule, By Mouth, Daily, # 30 capsule, 11 Refills, Maintenance, 12/31/20 16:51:00 EDT, [facility] #[id number], 165, cm, 11/19/20 11:32:00 EDT, Height, 127, [...] 0 Refills, Maintenance, 06/18/20 16:57:00 EST, Patch, [facility] #[id number], Partial fill upon patient request, 165, cm, 06/07/20 13:52:00 EST, Height, 127, kg, 02/03/20 14:39:00 EDT, Dry Weight Start Date: 06/18/20 Stop Date: 07/30/20 Status: Ordered NuLYTELY with Flavor Packs oral powder for reconstitution See Instructions, Drink 240mL every 15-20 minutes until first half is gone. Repeat 6 hours prior toprocedure., # 4,000 mL, 0 Refills, Maintenance, 06/28/20 17:09:00 EST, [facility] #29563,Partial fill upon patient request if the prescript... Start Date: 06/28/20 Status: Ordered oxyCODONE 10 mg oral tablet 1 tablet = 10 mg, By Mouth, Every 8 hours, DX Z79.891 G89.29 M47.816 OK TO FILL LESS THAN PRESCRIBED AMOUNT, # 84 tablet, 0 Refills, Maintenance, 12/31/20 16:45:00 EDT, Tablet, [facility] #[id number], 01/01/21, 165, cm, 11/19/20 11:32:00 EDT, He... Start Date: 12/31/20 Stop Date: 01/28/21 Status: Ordered penicillin V potassium 250 mg oral tablet 1 tablet = 250 mg, By Mouth, 2 times a day, Cellulitis prophylaxis, # 60 tablet, 11 Refills, Maintenance, 10/30/20 12:09:00 EDT, [facility] #[id number], 165, cm, 10/19/20 8:59:00 EDT, Height, 127, kg, 02/03/20 14:39:00 EDT, Dry Weight Start Date: 10/30/20 Status: Ordered predniSONE 10 mg oral tablet 1 tablet = 10 mg, By Mouth, Daily, # 30 tablet, 5 Refills, Maintenance, 11/19/20 11:50:00 EDT, Tablet, [facility] #29457, Partial fill upon patient request if the [...] 5 Refills, Maintenance, 04/30/20 15:13:00 EDT, Tablet, [facility] #[id number], 165, cm, 04/30/20 14:30:00 EDT, Height, 127, kg, 02/03/20 14:39:00 EDT, Dry Weight Start Date: 04/30/20 Status: Ordered rosuvastatin 10 mg oral tablet 1 tablet = 10 mg, By Mouth, Daily, # 90 tablet, 3 Refills, Maintenance, 05/03/20 16:35:00 EDT, Tablet, [facility] #[id number], d/c rx for capsules, 165, cm, 04/30/20 14:30:00 EDT, Height, 127, kg, 02/03/20 14:39:00 EDT, Dry Weight Start Date: 05/03/20 Status: Ordered Ventolin HFA 108 mcg/inh inhalation aerosol with adapter 2 puffs, Inhalation, Every 4 hours, PRN Wheezing/Shortness of Breath, # 1 each, 5 Refills, Soft Stop, 11/08/20 8:46:00 EDT, [facility] #25130, 165, cm, 10/19/20 8:59:00 EDT, Height, 127, kg, 02/03/20 14:39:00 EDT, Dry Weight Start Date: 11/08/20 Status: Ordered warfarin 5 mg oral tablet 1 tablet = 5 mg, By Mouth, Daily, dosing subject to change pending inr lab values, # 30 tablet, 11 Refills, Maintenance, 08/31/20 15:36:00 EST, Tablet, [facility][id number], 165, cm, 07/31/20 14:32:00 EST, Height, 127, [...] long-term use(Confirmed) Active 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
--- OUTSIDE RECORDS SUMMARY | 2024-01-02 21:36 | XMS_ITS | Continuity of Care Document ---
Author Organization [facility] Address [address] [place] [address]- Care Team Providers Care Marking Room Supervisor Name Role Phone Eulogio Nickerson MD Primary Care Physician Encounter [facility] Date(s): 02/18/22 - 06/18/22 [facility] [address] [address]- Attending Physician: Sayda Fields MD Admitting Physician: Sayda Fields MD Referring Physician: Eulogio Nickerson MD Allergies, [...] vaccine, inactivated 05/10/07 Jarrett rded SARS-CoV-2 mRNA (tducagy-dvcp-uhudo) vax 08/30/21 Recorded SARS-CoV-2 (COVID-19) mRNA BNT-162b2 vac 01/02/21 Recorded SARS-CoV-2 (COVID-19) mRNA BNT-162b2 vac 12/02/20 Recorded Fluvirin (oldterm) 8 03/22/15 Given Fluzone Preservative-Free (oldterm) 9 03/12/12 Giv en pneumococcal 23-valent vaccine 10/08/11 Given tetanus/diphtheria/pertussis, acel(Tdap) 09/08/11 Given tetanus/diphtheria/pertussis, acel(Tdap) 12/17/06 Recorded influ virus vac, H1N1, inactive(oldterm) 10 05/08/11 Given hepatitis B adult vaccine 06/14/02 Recorded 1Result Comment: [id number] 2Result Comment: [id number] 3Result Comment: [id number] 4Result Comment: [id number] 5Result Comment: [07/08/2017] [id number] 6Admin Note: [facility] 7Admin Note: [facility] [...] Gm, 4 Refills, Maintenance, 04/28/22 13:11:00 EDT, [facility], 17, INHALE 2 PUFFS BY MOUTH EVERY FOUR HOURS NEEDED FOR WHEEZING... Start Date: 04/28/22 Status: Ordered cloNIDine 0.1 mg oral tablet See Instructions, TAKE 1 TABLET BY MOUTH TWICE A DAY NEEDED FOR FOR ANXIETY (VIAL), # 60 tablet,Refills 1, Maintenance, 04/28/22 13:11:00 EDT, Instructions Replace Required Details, Route to Pharmacy Electronically, [facility], 159, cm, 06... Start Date: [...] 05/29/22 6:33:00 EDT, Route to Pharmacy Electronically, [facility], 159, cm, 05/05/22 11:32:00 EDT, Height, 98.8, kg, 229:12:00 EDT, Dry Weight Start Date: 05/29/22 Status: Ordered docusate sodium 100 mg oral capsule 100 mg, 1, capsule, By Mouth, 2 times a day, hold for loose stool, # 60 capsule, Refills 0, Tot. Refills 0, Maintenance, 01/11/22 7:25:00 EDT, Route to Pharmacy Electronically, [facility], Partial fill upon patient request if [...] Replace Required Details, Route to Pharmacy Electronically, [facility], 165, cm, 06/25/21 11:35:00 EST, Height, 127, kg, 02/03/20 14:39:00 EDT, Dry Weight Start Date: 08/05/21 Status: Ordered penicillin V potassium 250 mg oral tablet 1 tablet, By Mouth, 2 times a day, CELLULITIS PROPHYLAXIS., # 60 tablet, 5 Refills, Maintenance, 05/29/22 6:19:00 EDT, [facility], 159, cm, 05/05/22 11:32:00 EDT, Height, 98.8, kg, 01/10/22 9:12:00 EDT, Dry Weight Start Date: 05/29/22 Status: Ordered rOPINIRole 0.5 mg oral tablet 1 tablet, By Mouth, 3 times a day, # 90 tablet, 5 Refills, 03/07/22 6:14:00 EDT, [facility], 159, cm, 01/11/22 15:15:00 EDT, Height, 98.8, kg, 01/10/22 9:12:00 EDT, Dry Weight Start Date: 03/07/22 Status: Ordered rosuvastatin 10 mg oral tablet See Instructions, TAKE 1 TABLET BY MOUTH DAILY, # 90 tablet, 1 Refills, Maintenance, 04/04/22 11:35:00 EDT, [facility], 159, cm, 01/11/22 15:15:00 EDT, Height, 98.8, kg, 01/10/22 9:12:00 EDT,Dry Weight Start Date: 04/04/22 Status: Ordered Symbicort 80mcg/4.5mcg Inhaler See Instructions, INHALE 2 PUFFS BY MOUTH TWICE A DAY RINSE MOUTH AND THROAT AFTER USE, # 10.2 Gm, Refills 5, Instructions Replace Required Details, Route to Pharmacy Electronically, [id number], [facility], 159, cm, 01/11/22 15:15:00 EDT... Start Date: 02/13/22 Status: Ordered warfarin 1 mg oral tablet See Instructions, Take 1-10 tablets By Mouth Daily as directed by [facility], # 150 tablet, 0 Refills, Maintenance, 01/11/22 7:24:00 EDT, Tablet, [facility], Partial fill upon [...] Team Personnel Name: Sandra Wills NP Position: [facility] PCO Associate Professional Member Role: Primary Care Nurse Address: Address: [address] [place] [address] [place] [address]- [place] Name: Marley Alejo RN Position: [facility] ED RN W/OE and Tasks Member Role: Primary Care Nurse Name: Eulogio Nickerson MD Position: [facility] Primary Care Physician Member Role: PCP Address: Address: [address] [place] [address]- Name: Alma Delia Fonseca PharmD Position: [facility] Associate Professional Member Role: Lifetime Consulting Provider Address: Address: [address] [place] [address] [place] [address]- Name: Yolis Mattson RN Position: S RN Member Role: Primary Care Nurse Name: Priscila Garzon RN Position: S RN Member Role: Primary Care Nurse Care Team Related Persons Name: FAUZIA JANSEN Address: home [address] [place] [address] Name: ANDRA JANSEN Address: [address] [place] [address] Name: AURELIA SHETH Address: home [address] [place] [address] Name: BRE OSORIO Address: home [address] [place] [address]
--- OUTSIDE RECORDS SUMMARY | 2024-01-02 21:36 | XMS_ITS | Continuity of Care Document ---
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 Phone Fuentes Garcia MD Primary Care Physician [place] [facility] Date(s): 05/01/20 - 07/28/20 [facility] [address] [place] [address] Attending Physician: Ministerio Villatoro MD Admitting Physician: Ministerio Villatoro MD Referring Physician: Fuentes Garcia MD Allergies, [...] H1N1, inactive(oldterm) 8 05/08/11 Given 1Result Comment: [id number] 2Result Comment: [id number] 3Result Comment: [07/08/2017] [id number] 4Admin Note: [facility] 5Admin Note: [facility] [...] 5 Refills, Maintenance, 07/03/20 9:16:00 EST, Cream, [facility] #[id number], Partial fill upon patient request if the [...] 06/04/20 12:56:00 EST, Route to Pharmacy Electronically, [facility] #[id number], please schedule appt for further refills, 165, cm, 05/16/20 14:15:00 EDT, Hei... Start Date: 06/04/20 Status: Ordered colchicine 0.6 mg oral tablet See Instructions, take 1 tablet by mouth once daily if needed for PSEUDOGOUT pain, # 30 tablet, Refills 5, Tot. Refills 5, Soft Stop, 01/05/20 8:41:00 EDT, Instructions Replace Required Details, Route to Pharmacy Electronically, [facility] #... Start Date: 01/05/20 Status: [...] Gm, 3 Refills, Maintenance, 06/22/20 14:58:00 EST, [facility] #[id number], 165, cm, 06/07/20 13:52:00 EST, Height, 127, [...] mL, 5 Refills, Maintenance, 10/01/18 10:08:42 EST, [place], 2 sprays Nares, Both 2 times a [...] tablet, 1 Refills, Maintenance, 07/12/20 13:56:00 EST, [facility] #[id number], Partial fill upon patient request if the prescription is for a schedule II opioid drug., 165, cm, 07/11/20 15:24:00 EST,... Start Date: 07/12/20 Stop Date: 07/05/21 Status: Ordered metoprolol 25 mg oral tablet 25 mg, 1, tablet, By Mouth, 2 times a day, # 60 tablet, Refills 5, Tot. Refills 5, Maintenance, 03/22/20 16:34:00 EDT, Route to Pharmacy Electronically, [facility] #[id number], 165, cm, 02/02/2014:39:00 EDT, Height, 127, kg, [...] 0 Refills, Maintenance, 06/18/20 16:57:00 EST, Patch, [facility] #[id number], Partial fill upon patient request, 165, cm, 06/07/20 13:52:00 EST, Height, 127, kg, 02/03/20 14:39:00 EDT, Dry Weight Start Date: 06/18/20 Stop Date: 07/30/20 Status: Ordered NuLYTELY with Flavor Packs oral powder for reconstitution See Instructions, Drink 240mL every 15-20 minutes until first half is gone. Repeat 6 hours prior toprocedure., # 4,000 mL, 0 Refills, Maintenance, 06/28/20 17:09:00 EST, [facility] #[id number],Partial fill upon patient request if the prescript... Start Date: 06/28/20 Status: Ordered oxyCODONE 10 mg oral tablet 1 tablet = 10 mg, By Mouth, Every 8 hours, DX Z79.891 G89.29 M47.816 OK TO FILL LESS THAN PRESCRIBED AMOUNT, # 84 tablet, 0 Refills, Maintenance, 07/16/20 17:18:00 EST, Tablet, [facility] #[id number], 07/17/20, 165, cm, 07/11/20 15:24:00 EST, He... [...] 5 Refills, Maintenance, 04/30/20 15:13:00 EDT, Tablet, [facility] #[id number], 165, cm, 04/30/20 14:30:00 EDT, Height, 127, kg, 02/03/20 14:39:00 EDT, Dry Weight Start Date: 04/30/20 Status: Ordered rosuvastatin 10 mg oral tablet 1 tablet = 10 mg, By Mouth, Daily, # 90 tablet, 3 Refills, Maintenance, 05/03/20 16:35:00 EDT, Tablet, [facility] #13956, d/c rx for capsules, 165, cm, 04/30/20 14:30:00 EDT, Height, 127, kg, 02/03/20 14:39:00 EDT, Dry Weight Start Date: 05/03/20 Status: Ordered Ventolin HFA 108 mcg/inh inhalation aerosol with adapter 2 puffs, Inhalation, Every 4 hours, PRN Wheezing/Shortness of Breath, # 1 each, 11 Refills, Soft Stop, 01/19/20 11:46:00 EDT, [facility] #46757, 165, cm, 01/16/20 6:17:00 EDT, Height, 128.1, kg, 01/16/20 6:17:00 EDT, Dry Weight Start Date: 01/19/20 Status: Ordered warfarin 5 mg oral tablet 1 tablet = 5 mg, By Mouth, Daily, dosing subject to change pending inr lab values, # 30 tablet, 5 Refills, Maintenance, 02/15/20 13:21:00 EDT, Tablet, [facility] #[id number], 165, cm, 02/03/20 14:39:00 EDT, Height, 127, [...]
--- OUTSIDE RECORDS SUMMARY | 2024-01-02 21:36 | XMS_ITS | Continuity of Care Document ---
Author Organization [facility] Robin Jane Nolberto Address [address] [place] [address]- Care Team Providers Care Director Of Kids Name Role Phone Fuentes Garcia MD Primary Care Physician [phone] Encounter [facility] Date(s): 05/16/21 - 06/15/21 [facility] Bola[facility] Adult [address] [place] [address]- Allergies, Adverse Reactions, Alerts Substance Reaction Severity [...] B adult vaccine 06/14/02 Recorded 1Result Comment: [id number] 2Result Comment: [id number] 3Result Comment: [07/08/2017] [id number] 4Admin Note: [facility] 5Admin Note: [facility] [...] 8.5 Gm, 5 Refills, 05/29/21 17:13:00 EDT, [facility] #[id number], 17, INHALE 2 PUFFS BY MOUTH EVERY [...] 11 Refills, Maintenance, 10/31/20 14:14:00 EDT, Cream, [facility] #[id number], Partial fill upon patient request if the [...] 04/09/21 14:32:00 EDT, Route to Pharmacy Electronically, [facility], 165, cm, 02/28/21 14:22:00 EDT, Height, [...] PMR, history of smoking fax to : [phone], 04... Start Date: 10/26/20 Status: Ordered Disposable [...] Gm, 3 Refills, Maintenance, 06/22/20 14:58:00 EST, [facility] #[id number], 165, cm, 06/07/20 13:52:00 EST, Height, 127, [...] Refills, Maintenance, 05/24/21 16:13:00 EDT, REC Powder, [facility] #[id number], Partial fill upon patient request if the [...] mL, 5 Refills, Maintenance, 10/01/18 10:08:42 EST, [place], 2 sprays Nares, Both 2 times a [...] 08/02/20 16:13:00 EST, Route to Pharmacy Electronically, [facility] #[id number], D/C RX ON FILE FOR CLARITAN, 165, [...] tablet, 6Refills, Maintenance, 05/21/21 11:19:00 EDT, Tablet, [facility], Partial fill upon patient request if the prescription is for a schedule II... Start Date: 05/21/21 Status: Ordered methenamine hippurate 1 gm oral tablet 1 tablet = 1 Gm, By Mouth, 2 times a day, # 60 tablet, 11 Refills, Maintenance, 07/05/21 14:00:00 EST, [facility], Partial fill upon patient request if the prescription is for a schedule II opioid drug., 165, cm, 02/28/21 14:22:00 EDT, Height,... Start Date: 07/05/21 Status: Ordered methenamine hippurate 1 gm oral tablet 1 tablet = 1 Gm, By Mouth, 2 times a day, # 60 tablet, 1 Refills, Hard Stop 07/05/21 14:00:00 EST, 07/12/20 13:56:00 EST, [facility] #[id number], Partial fill upon patient request if the prescription is for a schedule II opioid drug., 165, cm, 12... Start Date: 07/12/20 Stop Date: 07/05/21 Status: Ordered Metoprolol Tartrate 25 mg oral tablet 1 tablet, By Mouth, 2 times a day, # 60 tablet, 2 Refills, Maintenance, 03/07/21 10:08:00 EDT, [facility] #15339, 165, cm, 02/28/21 14:22:00 EDT, Height, 127, kg, 02/03/20 14:39:00 EDT, DryWeight Start Date: 03/07/21 Status: Ordered Mitigare 0.6 mg oral capsule 1 capsule, By Mouth, Daily, # 30 capsule, 11 Refills, Maintenance, 12/31/20 16:51:00 EDT, [facility] #[id number], 165, cm, 11/19/20 11:32:00 EDT, Height, 127, [...] 0 Refills, Maintenance, 04/11/21 9:00:00 EDT, Patch, [facility], Partial fill upon patient request, 165, cm, 02/28/21 14:22:00 EDT, Height, 127, kg, 02/03/20 14:39:00 EDT, Dry Weight Start Date: 04/11/21 Stop Date: 05/23/21 Status: Ordered NuLYTELY with Flavor Packs oral powder for reconstitution See Instructions, Drink 240mL every 15-20 minutes until first half is gone. Repeat 6 hours prior toprocedure., # 4,000 mL, 0 Refills, Maintenance, 06/28/20 17:09:00 EST, [facility] #[id number],Partial fill upon patient request if the prescript... Start Date: 06/28/20 Status: Ordered oxyCODONE 10 mg oral tablet 1 tablet = 10 mg, By Mouth, Every 8 hours, DX Z79.891 G89.29 M47.816 OK TO FILL LESS THAN PRESCRIBED AMOUNT, # 84 tablet, 0 Refills, Maintenance, 06/13/21 17:00:00 EST, Tablet, [facility] #[id number], 06/18/21, 165, cm, 05/21/21 10:54:00 EDT, He... Start Date: 06/13/21 Stop Date: 07/11/21 Status: Ordered oxyCODONE 5 mg oral tablet 10 mg, 2, tablet, By Mouth, Every 8 hours, DX Z79.891 G89.29 M47.816 OK TO FILL LESS THAN PRESCRIBED AMOUNT, # 168 tablet, Refills 0, Tot. Refills 0, Maintenance, 03/25/21 16:45:00 EDT, Route to Pharmacy Electronically, [facility] #[id number], D... Start Date: 03/25/21 Stop Date: 04/22/21 Status: Ordered penicillin V potassium 250 mg oral tablet 1 tablet = 250 mg, By Mouth, 2 times a day, Cellulitis prophylaxis, # 60 tablet, 11 Refills, Maintenance, 10/30/20 12:09:00 EDT, [facility] #[id number], 165, cm, 10/19/20 8:59:00 EDT, Height, 127, kg, 02/03/20 14:39:00 EDT, Dry Weight Start Date: 10/30/20 Status: Ordered predniSONE 5 mg oral tablet 1 tablet = 5 mg, By Mouth, Daily, # 30 tablet, 0 Refills, Maintenance, 01/11/21 14:20:00 EDT, Tablet, [facility] #[id number], Partial fill upon patient request if the [...] a day, # 90 tablet, 0 Refills, [facility], 165, cm, 05/21/21 10:54:00 EDT, Height, 127, kg, 02/03/20 14:39:00 EDT, Dry Weight Start Date: 06/11/21 Status: Ordered rosuvastatin 10 mg oral tablet 1 tablet = 10 mg, By Mouth, Daily, # 90 tablet, 1 Refills, Maintenance, 05/20/21 15:53:00 EDT, Tablet, [facility], d/c rx for capsules, 165, cm, 02/28/21 14:22:00 EDT, Height, 127, kg, 02/03/20 14:39:00 EDT, Dry Weight Start Date: 05/20/21 Status: Ordered Trulicity Pen 0.75 mg/0.5 mL subcutaneous solution 0.5 mL = 0.75 mg, Subcutaneous Injection, Every week, take on same day every week, rotate injectionsites E11.9, # 2 mL, 1 Refills, Maintenance, 05/21/21 11:18:00 EDT, Solution, [facility] #[id number], Partial fill upon patient request if the... Start Date: 05/21/21 Status: Ordered warfarin 2.5 mg oral tablet See Instructions, Dosing Subject To Change per INR Result per MD, # 30 each, 6 Refills, Maintenance, 06/12/21 17:09:00 EST, Tablet, [facility], Dosing Subject To Change per INR Result per MD,165, cm, 05/21/21 10:54:00 EDT, Height, 127, kg, 07... 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
--- OUTSIDE RECORDS SUMMARY | 2024-01-02 21:36 | XMS_ITS | Continuity of Care Document ---
Author Organization [facility] Address [address] [place] [address], [address] [place] [address]- Care Team Providers Care Hydroelectric Plant Electrician Name Role Phone Krishan GRIDER, Eulogio Molina Primary Care Physician [place] [facility] [place]/22 [facility] [address] [place] [address], [address] [place] [address]- Attending Physician: Zak Hyman MD Referring Physician: Woo He Allergies, Adverse Reactions, Alerts Substance Reaction Severity [...] vaccine, inactivated 05/10/07 Jarrett rded SARS-CoV-2 mRNA (bmricem-qzhf-lkdan) vax 08/30/21 Recorded SARS-CoV-2 (COVID-19) mRNA BNT-162b2 vac 6/9/21 Recorded SARS-CoV-2 (COVID-19) mRNA BNT-162b2 vac 12/02/20 Recorded Fluvirin (oldterm) 8 03/22/15 Given Fluzone Preservative-Free (oldterm) 9 03/12/12 Giv en pneumococcal 23-valent vaccine 10/08/11 Given tetanus/diphtheria/pertussis, acel(Tdap) 09/08/11 Given tetanus/diphtheria/pertussis, acel(Tdap) 12/17/06 Recorded influ virus vac, H1N1, inactive(oldterm) 10 05/08/11 Given hepatitis B adult vaccine 06/14/02 Recorded 1Result Comment: [id number] 2Result Comment: [id number] 3Result Comment: [id number] 4Result Comment: [id number] 5Result Comment: [07/08/2017] [id number] 6Admin Note: [facility] 7Admin Note: [facility] [...] Gm, 4 Refills, Maintenance, 09/08/22 14:55:00 EST, [email or web address], 30, INHALE 2 PUFFS BY MOUTH EVERY FOUR HOURS NEEDED FOR WHEEZING... Start Date: 09/08/22 Status: Ordered cloNIDine 0.1 mg oral tablet 1, tablet, By Mouth, 2 times a day, PRN, # 56 tablet, Refills 2, Maintenance, NEEDED FOR FOR ANXIETY (VIAL) ^VIAL, 10/03/22 11:23:00 EST, Route to Pharmacy Electronically, [email or web address], 160,cm, 09/09/22 14:31:00 EST, Height, 98.8, kg, 07/17/... Start Date: 10/03/22 Status: Ordered colchicine 0.6 mg oral tablet 1, tablet, By Mouth, Daily, ^1R1., # 30 tablet, Refills 11, Maintenance, 09/10/22 5:31:00 EST, [facility], 160, cm, 09/09/22 14:31:00 EST, Height, 98.8, kg, 07/17/22 8:58:00 EST, Dry Weight Start Date: 09/10/22 Status: Ordered docusate sodium 100 mg oral capsule 100 mg, 1, capsule, By Mouth, 2 times a day, hold for loose stool, # 60 capsule, Refills 0, Tot. Refills 0, Maintenance, 01/11/22 7:25:00 EDT, Route to Pharmacy Electronically, [facility], Partial fill upon patient request if the prescri... Start Date: 01/11/22 Stop Date: 02/10/22 Status: Ordered duloxetine 20 mg oral enteric coated capsule 2 capsule = 40 mg, By Mouth, Daily at bedtime, # 60 capsule, 11 Refills, Maintenance, 06/25/21 12:00:00 EST, Capsule, [facility], Partial fill upon patient request [...] Acute 03/16/23 6:08:00 EDT, 10/14/22 6:08:00 EDT, [place], [id number], Partial fill upon patient request if the [...] 11/06/22 6:52:00 EDT, Route to Pharmacy Electronically, [facility], 160, cm, 10/13/22 16:25:00 EDT, [...] 5 Refills, Maintenance, 07/29/22 6:50:00 EST, Tablet, [facility], Partial fill upon patient request if the prescription is for a schedule II opioid drug., 160, cm, 07/18/22 11:39:00 EST,... Start Date: 07/29/22 Status: Ordered penicillin V potassium 250 mg oral tablet 1 tablet = 250 mg, By Mouth, 2 times a day, CELLULITIS PROPHYLAXIS, # 60 tablet, 5 Refills, Maintenance, 11/06/22 17:25:00 EDT, Tablet, [facility], Partial fill upon patient request if the prescription is for a schedule II opioid drug., 160, c... Start Date: 11/06/22 Stop Date: 05/05/23 Status: Ordered predniSONE 10 mg oral tablet 1 tablet, By Mouth, Daily, ^1R1., # 30 tablet, 2 Refills, Maintenance, 11/21/22 16:59:00 EDT, [email or web address], 160, cm, 10/13/22 16:25:00 EDT, Height, 98.8, kg, 07/17/22 8:58:00 EST, Dry Weight Start Date: 11/21/22 Status: Ordered rOPINIRole 0.5 mg oral tablet See Instructions, TAKE 1 TABLET BY MOUTH THREE TIMES DAILY^1R1,1R3,1R4, # 90 tablet, 5 Refills, Maintenance, 07/24/22 23:41:00 EST, [email or web address], 160, cm, 07/18/22 11:39:00 EST, Height, 98.8, kg, 07/17/22 8:58:00 EST, Dry Weight Start Date: 07/24/22 Status: Ordered rosuvastatin 10 mg oral tablet 1 tablet, By Mouth, Daily, ^1R1., # 30 tablet, 5 Refills, Maintenance, 09/10/22 5:31:00 EST, [email or web address], 160, cm, 09/09/22 14:31:00 EST, Height, 98.8, kg, 07/17/22 8:58:00 EST, Dry Weight Start Date: 09/10/22 Status: Ordered Symbicort 80mcg/4.5mcg Inhaler See Instructions, INHALE 2 PUFFS BY MOUTH TWICE A DAY RINSE MOUTH AND THROAT AFTER USE, # 10.2 Gm, Refills 5, Maintenance, 07/30/22 21:16:00 EST, Instructions Replace Required Details, Route to Pharmacy Electronically, LAPDP_[id number], [email or web address] 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 Confirmed [...] oldest [Reference Range]: 1 Height 160 cm (12/16/22 10:46 AM) Weight 105.8 kg (12/16/22 10:46 AM) Body Mass Index [18.5-24.99 kg/m2] 41.33 kg/m2 *>HHI* (12/16/22 10:46 AM) Social History Social History Type Response Smoking Status 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 Female Patient Care team information Care Team Personnel Name: Sandra Wills NP Position: [facility] Associate Professional Member Role: Primary Care Nurse Address: Address: [address] [place] [address]- Name: Marley Alejo RN Position: [facility] RN Member Role: Primary Care Nurse Name: Eulogio Nickerson MD Position: [facility] Physician - Primary Care Member Role: PCP Address: Address: [address] [place] [address]- Name: Alma Delia Fonseca PharmD Position: [facility] Associate Professional Member Role: Lifetime Consulting Provider Address: Address: [address] [facility] [place] [address]- [place] Name: Yolis Mattson RN Position: S RN Member Role: Primary Care Nurse Name: Priscila Garzon RN Position: S RN Member Role: Primary Care Nurse Name: Renea Mart RN Position: S RN Member Role: Primary Care Nurse Care Team Related Persons Name: FAUZIA JANSEN Address: home [address] [place] [address] Name: AURELIA SHETH Address: home [address] [place] [address] Name: BRE OSORIO Address: home [address] [place] [address]
--- OUTSIDE RECORDS SUMMARY | 2024-01-02 21:36 | XMS_ITS | Continuity of Care Document ---
Author Organization [facility] Robin Jane Nolberto Address [address] [place] [address]- Care Team Providers Care Senior Planner Name Role Phone Krishan GRIDER, Eulogio Molina Primary Care Physician Encounter [facility] Date(s): 09/03/21 - 10/03/21 [facility] Robin Bolañosley Adult [address] [place] [address]- Allergies, Adverse Reactions, Alerts Substance Reaction Severity Status Adhesive Bandage Active Dust copd exac/sinus congestion A ctive Immunizations Given and Recorded Vaccine Date Status Refusal Reason SARS-CoV-2 mRNA (pkhpssl-aaid-wlokk) vax 08/30/21 Recorded influenza virus vaccine, inactivated [...] B adult vaccine 06/14/02 Recorded 1Result Comment: [id number] 2Result Comment: [id number] 3Result Comment: [id number] 4Result Comment: [07/08/2017] 36818-538-25 5Admin Note: [facility] 6Admin Note: [facility] [...] 8.5 Gm, 5 Refills, 05/29/21 17:13:00 EDT, [facility] #[id number], 17, INHALE 2 PUFFS BY MOUTH EVERY 4 HOURS NEEDED FOR WHEEZING OR SHORTNE... Start Date: 05/29/21 Status: Ordered calcipotriene 0.005% topical cream 1 application, Topically, 2 times a day, # 60 Gm, 11 Refills, Maintenance, 10/31/20 14:14:00 EDT, Cream, [facility] #[id number], Partial fill upon patient request if the prescription is for a schedule II opioid drug., 1 application Topically 2 ti... Start Date: 10/31/20 Status: Ordered chlorthalidone 25 mg oral tablet 1, tablet, By Mouth, Daily, # 90 tablet, Refills 3, [facility], [facility], 165, cm, 06/25/21 11:35:00 EST, Height, [...] 11 Refills, Maintenance, 06/25/21 12:00:00 EST, Capsule, [facility], Partial fill upon patient request if [...] Gm, 3 Refills, Maintenance, 06/22/20 14:58:00 EST, [facility] #[id number], 165, cm, 06/07/20 13:52:00 EST, Height, 127, [...] Replace Required Details, Route to Pharmacy Electronically, [facility] [place]... Start Date: 09/05/21 Status: Ordered HydrOXYzine PRn , rare use, 0 Refills, Maintenance, 04/30/20 15:04:00 EDT Start Date: 04/30/20 Status: Ordered ipratropium nasal 21 mcg/inh spray 2 sprays, Nares, Both, 2 times a day, # 30 mL, 5 Refills, Maintenance, 10/01/18 10:08:42 EST, [place], 2 sprays Nares, Both 2 times a [...] Replace Required Details, Route to Pharmacy Electronically, [facility], 165, cm, 06/25/21 11:35:00 EST, [...] tablet, 6Refills, Maintenance, 05/21/21 11:19:00 EDT, Tablet, [facility], Partial fill upon patient request if the prescription is for a schedule II... Start Date: 05/21/21 Status: Ordered methenamine hippurate 1 gm oral tablet 1 tablet = 1 Gm, By Mouth, 2 times a day, # 60 tablet, 11 Refills, Maintenance, 07/05/21 14:00:00 EST, [facility], Partial fill upon patient request if the prescription is for a schedule II opioid drug., 165, cm, 02/28/21 14:22:00 EDT, Height,... Start Date: 07/05/21 Status: Ordered Mitigare 0.6 mg oral capsule 1 capsule, By Mouth, Daily, # 30 capsule, 11 Refills, Maintenance, 12/31/20 16:51:00 EDT, [id number], 165, cm, 11/19/20 11:32:00 EDT, Height, 127, kg, 02/03/20 14:39:00 EDT, Dry Weight Start Date: 12/31/20 Status: Ordered penicillin V potassium 250 mg oral tablet 1 tablet = 250 mg, By Mouth, 2 times a day, Cellulitis prophylaxis, # 60 tablet, 11 Refills, Maintenance, 10/30/20 12:09:00 EDT, [id number], 165, cm, 10/19/20 8:59:00 EDT, Height, 127, kg, 02/03/20 14:39:00 EDT, Dry Weight Start Date: 10/30/20 Status: Ordered propranolol 20 mg oral tablet 20 mg, 1, tablet, By Mouth, 2 times a day, Stop metoprolol, # 60 tablet, Refills 5, Tot. Refills 5,Maintenance, 09/05/21 6:13:00 EST, Route to Pharmacy Electronically, [facility], Partial fill upon patient request if the prescription is for a... Start Date: 09/05/21 Status: Ordered risperiDONE 1 mg oral tablet take 1 tablet by mouth twice a day Start Date: 05/23/19 Status: Ordered rOPINIRole 0.5 mg oral tablet 1 tablet, By Mouth, 3 times a day, # 90 tablet, 3 Refills, [facility], 165, cm, 06/25/21 11:35:00 EST, Height, 127, kg, 02/03/20 14:39:00 EDT, Dry Weight Start Date: 07/09/21 Status: Ordered rosuvastatin 10 mg oral tablet 1 tablet = 10 mg, By Mouth, Daily, # 90 tablet, 1 Refills, Maintenance, 05/20/21 15:53:00 EDT, Tablet, [facility], d/c rx for capsules, 165, [...] 6 Refills, Maintenance, 06/12/21 17:09:00 EST, Tablet, [facility], Dosing Subject To Change per INR Result per MD,165, cm, 05/21/21 10:54:00 EDT, Height, 127, kg, 07... Start Date: 06/12/21 Status: Ordered warfarin 5 mg oral tablet See Instructions, Dosing Subject To Change Per INR Result per MD, # 30 each, 6 Refills, Maintenance, 06/12/21 17:05:00 EST, Tablet, [facility], PLEASE GIVE BOTH 5MG TABLETS AND [...]
--- OUTSIDE RECORDS SUMMARY | 2024-01-02 21:36 | XMS_ITS | Continuity of Care Document ---
Author Organization [facility] Address [address] [place] [address]- Care Team Providers Care Technical Account Manager Name Role Phone Fuentes Garcia MD Primary Care Physician Encounter [facility] [place] Date(s): 04/14/19 - 08/21/19 [facility] [address] [place] [address]- [facility] Attending Physician: Irais Monzon MD Admitting Physician: Irais Monzon MD Allergies, Adverse Reactions, Alerts Substance Reaction [...] H1N1, inactive(oldterm) 7 05/08/11 Given 1Result Comment: [id number] 2Result Comment: [07/08/2017] [id number] 3Admin Note: [facility] 4Admin Note: [facility] 04-08 5Admin Note: Given at [facility] 6Admin Note: 8-16-12 GIVEN AT [facility] 7Admin Note: rcvd elsewhere Medications Acetaminophen = [...] tablet, 2 Refills, Maintenance, 07/18/19 9:13:00 EST, [facility] - [address] [place] [address], 162, cm, 05/23/19 11:50:00 EDT, Height, 116.4, kg, 05/04/19 11:52:00 EDT, Dry Weight Start Date: 07/18/19 Stop Date: 07/19/19 Status: Ordered chlorthalidone 25 mg oral tablet 25 mg, 1, tablet, By Mouth, Daily, # 30 tablet, Refills 2, Tot. Refills 2, Maintenance, 06/17/19 14:30:22 EST, Route to Pharmacy Electronically, NCPDP_ID- [id number], [facility] - [address] [place] [address], please schedule appt for further refills Start Date: 06/17/19 Status: Ordered Claritin 10 mg oral tablet 10 mg, 1, tablet, By Mouth, Daily, for 30 days, # 30 tablet, Refills 11, Tot. Refills 11, Acute 05/11/20 17:36:41 EDT, 05/17/19 17:36:41 EDT, Route to Pharmacy Electronically, [facility]DP_[id number], [facility] Start Date: 05/17/19 Stop Date: 05/11/20 [...] mL, 5 Refills, Maintenance, 10/01/18 10:08:42 EST, [place], 2 sprays Nares, Both 2 times a [...] 12/08/18 12:09:04 EDT, Route to Pharmacy Electronically, [facility]-[id number][facility] Start Date: 12/08/18 Status: Ordered MiraLax oral [...] 1 tablet by mouth twice a day, [address] Start Date: 05/17/19 Status: Ordered penicillin [...] IF NEEDED FOR WHEEZING - [facility], [address] Start Date: 01/24/19 Status: Ordered Vitamin [...] 8:37:00 EST, Tablet, [facility] [address], 162, cm, [...]
--- OUTSIDE RECORDS SUMMARY | 2024-01-02 21:36 | XMS_ITS | Continuity of Care Document ---
Author Organization [facility] Address [address] [place] [address] ruthann, [address] [place] [address]- Care Team Providers Care Police Captain Precinct Name Role Phone Krishan GRIDER, Eulogio Molina Primary Care Physician [phone] Encounter [facility] [place] Date(s): 09/22/22 - 10/22/22 [facility] [address] [place] [address] Drive, [address] [place], [place] [address] Allergies, Adverse Reactions, Alerts Substance Reaction Severity [...] vaccine, inactivated 05/10/07 Jarrett rded SARS-CoV-2 mRNA (ejkmsuy-cbdq-awdeg) vax 08/30/21 Recorded SARS-CoV-2 (COVID-19) mRNA BNT-162b2 vac 01/02/21 Recorded SARS-CoV-2 (COVID-19) mRNA BNT-162b2 vac 5/9/21 Recorded Fluvirin (oldterm) 8 03/22/15 Given Fluzone Preservative-Free (oldterm) 9 03/12/12 Giv en pneumococcal 23-valent vaccine 10/08/11 Given tetanus/diphtheria/pertussis, acel(Tdap) 09/08/11 Given tetanus/diphtheria/pertussis, acel(Tdap) 12/17/06 Recorded influ virus vac, H1N1, inactive(oldterm) 10 05/08/11 Given hepatitis B adult vaccine 06/14/02 Recorded 1Result Comment: [id number] 2Result Comment: [id number] 3Result Comment: [id number] 4Result Comment: [id number] 5Result Comment: [07/08/2017] [id number] 6Admin Note: [facility] 7Admin Note: [facility] [...] Gm, 4 Refills, Maintenance, 09/08/22 14:55:00 EST, [facility], 30, INHALE 2 PUFFS BY MOUTH EVERY FOUR HOURS NEEDED FOR WHEEZING... Start Date: 09/08/22 Status: Ordered cloNIDine 0.1 mg oral tablet 1, tablet, By Mouth, 2 times a day, PRN, # 56 tablet, Refills 2, Maintenance, NEEDED FOR FOR ANXIETY (VIAL) ^VIAL, 10/03/22 11:23:00 EST, [facility], 160,cm, 09/09/22 14:31:00 EST, Height, 98.8, kg, 07/17/... Start Date: 10/03/22 Status: Ordered colchicine 0.6 mg oral tablet 1, tablet, By Mouth, Daily, ^1R1., # 30 tablet, Refills 11, Maintenance, 09/10/22 5:31:00 EST, [facility], 160, cm, 09/09/22 14:31:00 EST, Height, 98.8, kg, 07/17/22 8:58:00 EST, Dry Weight Start Date: 09/10/22 Status: Ordered docusate sodium 100 mg oral capsule 100 mg, 1, capsule, By Mouth, 2 times a day, hold for loose stool, # 60 capsule, Refills 0, Tot. Refills 0, Maintenance, 01/11/22 7:25:00 EDT, Route to Pharmacy Electronically, [facility], Partial fill upon patient request if the prescri... Start Date: 01/11/22 Stop Date: 02/10/22 Status: Ordered duloxetine 20 mg oral enteric coated capsule 2 capsule = 40 mg, By Mouth, Daily at bedtime, # 60 capsule, 11 Refills, Maintenance, 06/25/21 12:00:00 EST, Capsule, [facility], Partial fill upon patient request [...] Acute 03/16/23 6:08:00 EDT, 10/14/22 6:08:00 EDT, [place], [id number], Partial fill upon patient request if the [...] 5 Refills, Maintenance, 07/29/22 6:50:00 EST, Tablet, [facility], Partial fill upon patient request if [...] 63 tablet, 0 Refills, Maintenance, 10/14/22 6:07:00 EDChar [place].. Start Date: 10/14/22 Status: Ordered rOPINIRole 0.5 mg oral tablet See Instructions, TAKE 1 TABLET BY MOUTH THREE TIMES DAILY^1R1,1R3,1R4, # 90 tablet, 5 Refills, Maintenance, 07/24/22 23:41:00 EST, [facility], 160, cm, 07/18/22 11:39:00 EST, Height, 98.8, kg, 07/17/22 8:58:00 EST, Dry Weight Start Date: 07/24/22 Status: Ordered rosuvastatin 10 mg oral tablet 1 tablet, By Mouth, Daily, ^1R1., # 30 tablet, 5 Refills, Maintenance, 09/10/22 5:31:00 EST, [facility], 160, cm, 09/09/22 14:31:00 EST, Height, 98.8, kg, 07/17/22 8:58:00 EST, Dry Weight Start Date: 09/10/22 Status: Ordered Symbicort 80mcg/4.5mcg Inhaler See Instructions, INHALE 2 PUFFS BY MOUTH TWICE A DAY RINSE MOUTH AND THROAT AFTER USE, # 10.2 Gm, Refills 5, Maintenance, 07/30/22 21:16:00 EST, Instructions Replace Required Details, Route to Pharmacy Electronically, NCPDP_[id number], [facility] Start Date: 07/30/22 Status: Ordered warfarin 1 mg oral tablet See Instructions, Take 1-10 tabs daily as directed by NEOS., # 150 tablet, 0 Refills, Maintenance, 07/18/22 8:55:00 EST, Tablet, [facility], Partial fill upon patient [...] Team Personnel Name: Sandra Wills NP Position: [facility] Associate Professional Member Role: Primary Care Nurse Address: Address: [address] [place] [address] [place] [address]- [place] Name: Marley Alejo RN Position: [facility] RN Member Role: Primary Care Nurse Name: Krishan GRIDER, Eulogio Molina Position: [facility] Primary Care Physician Member Role: PCP Address: Address: [address] [place] [address]- [place] Name: Alma Delia Fonseca PharmD Position: [facility] Associate Professional Member Role: Lifetime Consulting Provider Address: Address: [address] [place] [phone]- Name: Yolis Mattson RN Position: [facility] RN Member Role: Primary Care Nurse Name: Priscila Garzon RN Position: [facility] RN Member Role: Primary Care Nurse Name: Renea Mart RN Position: S RN Member Role: Primary Care Nurse Care Team Related Persons Name: FAUZIA JANSEN Address: home [address] [place] [address] Name: AURELIA SHETH Address: [address] [place] [address] Name: BRE OSORIO Address: home [address] [place] [address]
--- OUTSIDE RECORDS SUMMARY | 2024-01-02 21:36 | XMS_ITS | Continuity of Care Document ---
Author Organization [facility]uk Nolberto Address [address] [place] [address]- Care Team Providers Care College Advisor Name Role Phone Krishan GRIDER, Eulogio Molina Primary Care Physician [phone] Encounter [facility] Date(s): 07/08/22 - 08/07/[address] [facility] Robin Bola[facility]ley Adult [address] [place] [address]- Allergies, Adverse Reactions, Alerts Substance Reaction Severity [...] vaccine, inactivated 05/10/07 Jarrett rded SARS-CoV-2 mRNA (lolpkca-[id number]-ijfbs) vax 08/30/21 Recorded SARS-CoV-2 (COVID-19) mRNA BNT-162b2 vac 01/02/21 Recorded SARS-CoV-2 (COVID-19) mRNA BNT-162b2 vac 12/02/20 Recorded Fluvirin (oldterm) 8 03/22/15 Given Fluzone Preservative-Free (oldterm) 9 03/12/12 Giv en pneumococcal 23-valent vaccine 10/08/11 Given tetanus/diphtheria/pertussis, acel(Tdap) 09/08/11 Given tetanus/diphtheria/pertussis, acel(Tdap) 12/17/06 Recorded influ virus vac, H1N1, inactive(oldterm) 10 05/08/11 Given hepatitis B adult vaccine 06/14/02 Recorded 1Result Comment: [id number] 2Result Comment: [id number] 3Result Comment: [id number] 4Result Comment: [id number] 5Result Comment: [07/08/2017] [id number] 6Admin Note: [facility] 7Admin Note: [facility] [...] 4 Refills, Maintenance, 04/28/22 13:11:00 EDT, [facility], 17, INHALE 2 PUFFS BY [...] :00:00 EDT, Route to Pharmacy Electronically, [facility] [...] 01/11/22 7:25:00 EDT, Route to Pharmacy Electronically, [facility], Partial fill upon patient request if the prescri... Start Date: 01/11/22 Stop Date: 02/10/22 Status: Ordered duloxetine 20 mg oral enteric coated capsule 2 capsule = 40 mg, By Mouth, Daily at bedtime, # 60 capsule, 11 Refills, Maintenance, 06/25/21 12:00:00 EST, Capsule, [facility], Partial fill [...] 17:07:00 EST, Route to Pharmacy Electronically, [facility], 160, cm, 07/17/22 12:03:00 EST, [...] Refills, Maintenance, 07/29/22 6:50:00 EST, Tablet, [facility], Partial fill [...] 5 Refills, Maintenance, 07/24/22 23:41:00 EST, [facility], 160, cm, 07/18/22 11:39:00 EST, [...] 5 Refills, Maintenance, 07/17/22 11:09:00 EST, [facility], 160, cm, 07/17/22 8:49:00 EST, Height, 98.8, kg, 07/17/22 8:58:00 EST, Dry Weight Start Date: 07/17/22 Status: Ordered Symbicort 80mcg/4.5mcg Inhaler See Instructions, INHALE 2 PUFFS BY MOUTH TWICE A DAY RINSE MOUTH AND THROAT AFTER USE, # 10.2 Gm, Refills 5, Maintenance, 07/30/22 21:16:00 EST, Instructions Replace Required Details, Route to Pharmacy Electronically, [facility]APDP_[id number], [facility]... Start Date: 07/30/22 Status: Ordered warfarin 1 mg oral tablet See Instructions, Take 1-10 tabs daily as directed by NEOS., # 150 tablet, 0 Refills, Maintenance, 07/18/22 8:55:00 EST, Tablet, [facility], Partial fill upon patient request [...] Member Role: Primary Care Nurse Address: Address: [address] [place] [address] [place] [address]- Name: Marely Alejo RN Position: [facility] RN Member Role: Primary Care Nurse Name: Eulogio Nickerson MD Position: [facility] Primary Care Physician Member Role: PCP Address: Address: [address] [place] [address]- Name: Alma Delia Fonseca PharmD Position: [facility] Associate Professional Member Role: Lifetime Consulting Provider Address: Address: [address] [place] [address] Coumadin [place], [place] [address] Name: Yolis Mattson RN Position: [facility] RN Member Role: Primary Care Nurse Name: Priscila Garzon RN Position: [facility] RN Member Role: Primary Care Nurse Name: Renea Mart RN Position: [facility] RN Member Role: Primary Care Nurse Care Team Related Persons Name: FAUZIA JANSEN Address: [address] [place] [address] Name: AURELIA SHETH Address: [address] [place] [address] Name: BRE OSORIO Address: [address] [place] [address]
--- OUTSIDE RECORDS SUMMARY | 2024-01-02 21:36 | XMS_ITS | Continuity of Care Document ---
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 Name Role Phone Radha GRIDER, Fuentes Kenny Primary Care Physician Encounter [facility] Date(s): 06/05/21 - 07/05/21 [facility] Robin Bolañosley Adult [address] [place] [address]- Allergies, Adverse Reactions, Alerts Substance Reaction Severity [...] B adult vaccine 06/14/02 Recorded 1Result Comment: [id number] 2Result Comment: [id number] 3Result Comment: [id number] 4Result Comment: [07/08/2017] [id number] 5Admin Note: [facility] 6Admin Note: [facility] [...] 8.5 Gm, 5 Refills, 05/29/21 17:13:00 EDT, [facility] #[id number], 17, INHALE 2 PUFFS BY MOUTH EVERY [...] 11 Refills, Maintenance, 10/31/20 14:14:00 EDT, Cream, [id number], Partial fill upon patient request if the [...] PMR, history of smoking fax to : [phone], 04... Start Date: 10/26/20 Status: Ordered Disposable [...] 11 Refills, Maintenance, 06/25/21 12:00:00 EST, Capsule, [facility], Partial fill upon patient [...] Gm, 3 Refills, Maintenance, 06/22/20 14:58:00 EST, [facility] #[id number], 165, cm, 06/07/20 13:52:00 EST, Height, 127, [...] Refills, Maintenance, 05/24/21 16:13:00 EDT, REC Powder, [facility] #[id number], Partial fill upon patient request if the [...] mL, 5 Refills, Maintenance, 10/01/18 10:08:42 EST, [place], 2 sprays Nares, Both 2 times a [...] 08/02/20 16:13:00 EST, Route to Pharmacy Electronically, [facility] #[id number], D/C RX ON FILE FOR ABRAM, 165, [...] tablet, 6Refills, Maintenance, 05/21/21 11:19:00 EDT, Tablet, [facility], Partial fill upon patient request if the prescription is for a schedule II... Start Date: 05/21/21 Status: Ordered methenamine hippurate 1 gm oral tablet 1 tablet = 1 Gm, By Mouth, 2 times a day, # 60 tablet, 11 Refills, Maintenance, 07/05/21 14:00:00 EST, [facility], Partial fill upon patient request if the prescription is for a schedule II opioid drug., 165, cm, 02/28/21 14:22:00 EDT, Height,... Start Date: 07/05/21 Status: Ordered Mitigare 0.6 mg oral capsule 1 capsule, By Mouth, Daily, # 30 capsule, 11 Refills, Maintenance, 12/31/20 16:51:00 EDT, [facility] #[id number], 165, cm, 11/19/20 11:32:00 EDT, Height, 127, [...] 0 Refills, Maintenance, 04/11/21 9:00:00 EDT, Patch, [facility], Partial fill upon patient request, 165, cm, 02/28/21 14:22:00 EDT, Height, 127, kg, 02/03/20 14:39:00 EDT, Dry Weight Start Date: 04/11/21 Stop Date: 05/23/21 Status: Ordered NuLYTELY with Flavor Packs oral powder for reconstitution See Instructions, Drink 240mL every 15-20 minutes until first half is gone. Repeat 6 hours prior toprocedure., # 4,000 mL, 0 Refills, Maintenance, 06/28/20 17:09:00 EST, [facility] #[id number],Partial fill upon patient request if the prescript... Start Date: 06/28/20 Status: Ordered oxyCODONE 10 mg oral tablet 1 tablet = 10 mg, By Mouth, Every 8 hours, DX Z79.891 G89.29 M47.816 OK TO FILL LESS THAN PRESCRIBED AMOUNT, # 84 tablet, 0 Refills, Maintenance, 06/13/21 17:00:00 EST, Tablet, [facility] #[id number], 06/18/21, 165, cm, 05/21/21 10:54:00 EDT, He... Start Date: 06/13/21 Stop Date: 07/11/21 Status: Ordered oxyCODONE 5 mg oral tablet 10 mg, 2, tablet, By Mouth, Every 8 hours, DX Z79.891 G89.29 M47.816 OK TO FILL LESS THAN PRESCRIBED AMOUNT, # 168 tablet, Refills 0, Tot. Refills 0, Maintenance, 03/25/21 16:45:00 EDT, Route to Pharmacy Electronically, [facility] #[id number], D... Start Date: 03/25/21 Stop Date: 04/22/21 Status: Ordered penicillin V potassium 250 mg oral tablet 1 tablet = 250 mg, By Mouth, 2 times a day, Cellulitis prophylaxis, # 60 tablet, 11 Refills, Maintenance, 10/30/20 12:09:00 EDT, [facility] #[id number], 165, cm, 10/19/20 8:59:00 EDT, Height, 127, kg, 02/03/20 14:39:00 EDT, Dry Weight Start Date: 10/30/20 Status: Ordered predniSONE 5 mg oral tablet 1 tablet = 5 mg, By Mouth, Daily, # 30 tablet, 0 Refills, Maintenance, 01/11/21 14:20:00 EDT, Tablet, [facility] #[id number], Partial fill upon patient request if the prescription is for a schedule II opioid drug., 165, cm, 01/11/21 14:05:00 EDT,... Start Date: 01/11/21 Status: Ordered propranolol 20 mg oral tablet 20 mg, 1, tablet, By Mouth, 2 times a day, # 60 tablet, Refills 5, Tot. Refills 5, Maintenance, 06/25/21 11:57:00 EST, Route to Pharmacy Electronically, [facility], Partial fill upon patient [...] a day, # 90 tablet, 0 Refills, [facility], 165, cm, 05/21/21 10:54:00 EDT, Height, 127, kg, 02/03/20 14:39:00 EDT, Dry Weight Start Date: 06/11/21 Status: Ordered rosuvastatin 10 mg oral tablet 1 tablet = 10 mg, By Mouth, Daily, # 90 tablet, 1 Refills, Maintenance, 05/20/21 15:53:00 EDT, Tablet, [facility], d/c rx for capsules, 165, cm, 02/28/21 14:22:00 EDT, Height, 127, kg, 02/03/20 14:39:00 EDT, Dry Weight Start Date: 05/20/21 Status: Ordered Trulicity Pen 0.75 mg/0.5 mL subcutaneous solution 0.5 mL = 0.75 mg, Subcutaneous Injection, Every week, take on same day every week, rotate injectionsites E11.9, # 2 mL, 1 Refills, Maintenance, 05/21/21 11:18:00 EDT, Solution, [facility] #[id number], Partial fill upon patient request if the... Start Date: 05/21/21 Status: Ordered warfarin 2.5 mg oral tablet See Instructions, Dosing Subject To Change per INR Result per MD, # 30 each, 6 Refills, Maintenance, 06/12/21 17:09:00 EST, Tablet, [facility], Dosing Subject To Change per INR Result per MD,165, cm, 05/21/21 10:54:00 EDT, Height, 127, kg, 07... Start Date: 06/12/21 Status: Ordered warfarin 5 mg oral tablet See Instructions, Dosing Subject To Change Per INR Result per MD, # 30 each, 6 Refills, Maintenance, 06/12/21 17:05:00 EST, Tablet, [facility], PLEASE GIVE BOTH 5MG TABLETS AND [...]
[2024-01-02 22:00] VITALS: BP 115/79; PULSE 82; RESP 20; TEMP 36.6; O2SAT 97
[2024-01-02 22:58] VITALS: BP 115/79; PULSE 82; RESP 20; TEMP 36.6; O2SAT 97
[2024-01-02] MEDS: oxyCODONE HCl Immed Release 5 MG TABLET PO (23:03)
[2024-01-02] MEDS: dexAMETHasone 4 MG TABLET PO (23:04)
== END 2024-01-02 23:07 | disposition home or self-care (01) ==
PROVIDERS: Emergency Provider Student in an Organized Health Care Education/Training Program; PCP Family Medicine
DX: M54.2 Cervicalgia (principal); E11.9 Type 2 diabetes mellitus without complications; I10 Essential (primary) hypertension; E78.5 Hyperlipidemia, unspecified; Z86.718 Personal history of other venous thrombosis and embolism; Z79.01 Long term (current) use of anticoagulants; F17.210 Nicotine dependence, cigarettes, uncomplicated
CPT/HCPCS: 99283; J8540

== ENCOUNTER 2024-01-09 04:11 | Emergency (ER) | payer OTHER, SELFPAY ==
--- NOTE | ~2024-01-09 | CT_ITS ---
EXAMINATION: CT HEAD WITHOUT CONTRAST CT CERVICAL SPINE WITHOUT CONTRAST CLINICAL INFORMATION: Fall. Patient on blood thinners. COMPARISON: None available. TECHNIQUE: Contiguous axial imaging was performed through the head and cervical spine without intravenous administration of contrast. Sagittal and coronal reformatted images also obtained. This CT examination was performed using dose optimization techniques as appropriate, variously including the following: *Automated exposure control *Adjustment of mA and/or kV according to patient size (this includes techniques or standardized protocols for targeted exams where dose is matched to indication/reason for exam; i.e. extremities or head) *Use of iterative reconstruction technique DLP: 1251 mGy-cm FINDINGS: The lateral, third and fourth ventricles are normally outlined. The cortical sulci and basal cisterns are normally outlined as well. There is no acute territorial defect, hemorrhage or midline shift. The extra-axial spaces are unremarkable Calvarium/scalp: Intact. Maxillofacial sinuses and mastoids: Clear as visualized. Cervical spine: Motion limits evaluation of the cervical spine. There is mild reversal of the expected cervical spine curvature. There is diffuse wvov-ce-yptvoiws cervical disc degenerative change most pronounced at C5-C6 and C6-C7 with loss of disc space, endplate change and posterior osteophytes associated with diffuse gixy-gy-wjlqcrom facet osteoarthritic atrophic change with multilevel mild to moderate spinal canal and neuroforaminal narrowing. No fracture is seen. The soft tissues are unremarkable. The visualized upper lung savage are clear. CT/CT cervical spine wo IV con IMPRESSION: 1. No acute intracranial pathology. 2. Motion limits evaluation of the cervical spine. There is no evidence for acute fracture or dislocation. 3. There is diffuse nvdz-mj-ndafpvba cervical spondylosis, most pronounced at C5-C6 and C6-C7 with multilevel mild to moderate spinal canal and neuroforaminal narrowing.
--- NOTE | ~2024-01-09 | CT_ITS ---
EXAMINATION: CT HEAD WITHOUT CONTRAST CT CERVICAL SPINE WITHOUT CONTRAST CLINICAL INFORMATION: Fall. Patient on blood thinners. COMPARISON: None available. TECHNIQUE: Contiguous axial imaging was performed through the head and cervical spine without intravenous administration of contrast. Sagittal and coronal reformatted images also obtained. This CT examination was performed using dose optimization techniques as appropriate, variously including the following: *Automated exposure control *Adjustment of mA and/or kV according to patient size (this includes techniques or standardized protocols for targeted exams where dose is matched to indication/reason for exam; i.e. extremities or head) *Use of iterative reconstruction technique DLP: 1251 mGy-cm FINDINGS: The lateral, third and fourth ventricles are normally outlined. The cortical sulci and basal cisterns are normally outlined as well. There is no acute territorial defect, hemorrhage or midline shift. The extra-axial spaces are unremarkable Calvarium/scalp: Intact. Maxillofacial sinuses and mastoids: Clear as visualized. Cervical spine: Motion limits evaluation of the cervical spine. There is mild reversal of the expected cervical spine curvature. There is diffuse cvmw-hg-nmjhperm cervical disc degenerative change most pronounced at C5-C6 and C6-C7 with loss of disc space, endplate change and posterior osteophytes associated with diffuse attn-le-byorptbv facet osteoarthritic atrophic change with multilevel mild to moderate spinal canal and neuroforaminal narrowing. No fracture is seen. The soft tissues are unremarkable. The visualized upper lung savage are clear. CT/CT head/brain wo IV con IMPRESSION: 1. No acute intracranial pathology. 2. Motion limits evaluation of the cervical spine. There is no evidence for acute fracture or dislocation. 3. There is diffuse debv-oa-wfbevrko cervical spondylosis, most pronounced at C5-C6 and C6-C7 with multilevel mild to moderate spinal canal and neuroforaminal narrowing.
--- NOTE | ~2024-01-09 | XR_ITS ---
EXAMINATION: XR SACRUM AND COCCYX CLINICAL INFORMATION: Fall. Pain. COMPARISON: None available. TECHNIQUE: 2 views of the sacrum and 2 views of the coccyx were obtained. FINDINGS: There are no fractures. No bone, joint or soft tissue abnormality is demonstrated. There is lower lumbar disc degenerative change. XR/XR sacrum coccyx min 2V IMPRESSION: No acute osseous abnormality.
[2024-01-09 04:19] VITALS: BP 117/66; BP 130/80; PULSE 70; PULSE 88; RESP 18; TEMP 36.7; O2SAT 98; BMI 45.6
[2024-01-09 04:24] VITALS: BP 117/66; PULSE 70; RESP 18; TEMP 36.6; O2SAT 98
--- NOTE | 2024-01-09 04:50 | ED.FALL ---
HPI - Fall General Chief Complaint: Fall Stated Complaint: Back Pain Time Seen by Provider: 01/09/24 04:38 Source: patient and EMS Mode of arrival: EMS Limitations: no limitations History of Present Illness ED Provider: Dr. Yessi Bourgeois HPI Narrative: Patient comes to emergency room complaining of lower back pain, and head injury. Patient states that earlier today she was trying to get out of her chair, the chair slipped backwards, patient landed on the floor on her buttocks, then rolled backwards, hitting the back of her head. Patient denies loss of consciousness, no lacerations. Patient states that her coccyx/tailbone hurts the most. Patient states that she takes Xarelto for atrial flutter and history of PEs. Patient states that she lives with her daughter, who was able to help her get up Related Data Home Medications ?Medication ?Instructions ?Recorded ?Confirmed albuterol sulfate 90 mcg/actuation 2 puff inhalation Q4-6H PRN 11/24/21 03/24/23 aerosol inhaler Respiratory Distress duloxetine 40 mg capsule,delayed 40 mg PO DAILY 11/24/21 03/24/23 release sprinkle duloxetine 60 mg capsule,delayed 60 mg PO DAILY 11/24/21 03/24/23 release loratadine 10 mg tablet 10 mg PO DAILY 11/24/21 03/24/23 penicillin V potassium 250 mg 250 mg PO BID 11/24/21 03/24/23 tablet rosuvastatin 10 mg tablet 10 mg PO DAILY 11/24/21 03/24/23 nitrofurantoin 100 mg PO BID 12/31/21 03/24/23 monohydrate/macrocrystals 100 mg capsule ropinirole 0.5 mg tablet 0.5 mg PO TID 05/01/22 03/24/23 budesonide-formoterol HFA 80 2 puff inhalation BID 09/29/22 03/24/23 mcg-4.5 mcg/actuation aerosol inhaler (Symbicort) clonidine HCl 0.1 mg tablet 0.1 mg PO BID PRN Anxiety 02/05/23 03/24/23 cyclobenzaprine 5 mg tablet 5 mg PO BEDTIME PRN muscle spasm 02/05/23 03/24/23 ipratropium bromide 21 mcg (0.03 2 spray intranasal BID PRN Allergy 02/05/23 03/24/23 %) nasal spray Symptoms lamotrigine 200 mg tablet 200 mg PO BEDTIME 02/05/23 03/24/23 lamotrigine 25 mg tablet 50 mg PO BEDTIME 02/05/23 03/24/23 nicotine 21 mg/24 hr daily 21 mg transdermal DAILY PRN 02/19/23 03/24/23 transdermal patch Nicotine Cravings Previous Rx's ?Medication ?Instructions ?Recorded furosemide 40 mg tablet 40 mg PO DAILY #30 tabs 02/10/23 rivaroxaban 20 mg tablet (Xarelto) 20 mg PO DAILY #30 tabs 02/10/23 diltiazem HCl 240 mg 240 mg PO DAILY #30 caps 02/27/23 capsule,extended release 24 hr (Cardizem CD) amiodarone 200 mg tablet 200 mg PO DAILY #30 tabs 05/05/23 metoprolol succinate 50 mg 50 mg PO BID 30 days #60 tabs 05/05/23 tablet,extended release 24 hr oxycodone 5 mg tablet 5 mg PO BID PRN pain #10 tabs 09/04/23 oxycodone 5 mg tablet 5 mg PO Q6H PRN pain #14 tabs 09/09/23 cyclobenzaprine 10 mg tablet 10 mg PO TID PRN muscle spasm #14 11/19/23 tabs oxycodone 5 mg capsule 5 mg PO Q6H PRN pain #14 caps 11/19/23 dexamethasone 4 mg tablet 4 mg PO BID #6 tabs 01/02/24 oxycodone 5 mg tablet 5 mg PO Q6H PRN pain #12 tabs 01/02/24 oxycodone 5 mg tablet 5 mg PO BID PRN pain #7 tabs 01/09/24 Allergies Allergy/AdvReac Type Severity Reaction Status Date / Time adhesive Allergy Rash Verified 01/09/24 04:22 Review of Systems Review of Systems: Constitutional : No Weight loss, No Fever, No Chills, No Night Sweats, No Fatigue, No Malaise ENT/Mouth : No Hearing loss, No Ear Pain, No Nasal Congestion, No Sinus Pain, No Hoarseness, No sore throat, No Rhinorrhea, No Swallowing Difficulty Eyes: No Eye Pain, No Swelling, No Redness, No Foreign Body, No Discharge, No Vision Changes Cardiovascular : No Chest Pain, No SOB, No Dyspnea on Exertion, No Orthopnea, No Edema, No Palpitations Respiratory : No Cough, No Sputum, No Wheezing, No Smoke Exposure, No Dyspnea Gastrointestinal : No Nausea, No Vomiting, No Diarrhea, No Constipation, No abdominal Pain, No Hematochezia, No Melena Genitourinary : no irregular bleeding, No Dysuria, No Urinary Frequency, No Hematuria, No Urinary Incontinence, No Urgency, No Flank Pain, No Urinary Flow Changes, No Hesitancy Musculoskeletal : No joint pain, No Myalgias, No Joint Swelling Skin : Complaining of lower back pain, No Skin Lesions, No rash Neuro : No Weakness, No Numbness, No Paresthesias, No Loss of Consciousness, No Dizziness, No Headache Psych : No Anxiety/Panic, No Depression, No SI/HI/AH/VH, No Social Issues, Heme/Lymph: No Bruising, No Bleeding,No Lymphadenopathy Endocrine : No Polyuria, No Polydipsia, No Temperature Intolerance PMFSH Past Medical History Medical History Right heart failure Atrial flutter History of cardioversion Leg edema Chronic respiratory failure requiring treatment with nocturnal BPAP by mask Morbid obesity Diabetes HLD (hyperlipidemia) HTN (hypertension) DVT of axillary vein, acute Arthritis Scoliosis Disc disorder of cervical region Disc disorder of lumbar region COPD (chronic obstructive pulmonary disease) Surgical History History of prolapse of bladder Hx of abdominoplasty History of partial hysterectomy Hx of esophagogastroduodenoscopy Hx of gastric bypass Status post knee replacement Previous back surgery Family History Family History Father Stroke Other Diabetes Social History Social History Household Members: Family Household Members Other:: daughter Housing: Apartment Do you presently have visiting nurse or other home services: Yes Alcohol intake: never Comment: PT REFUSING ALL SAFTEY AND FALL PRECAUTIONS Patient Tobacco Use Status: Current everyday Tobacco user Tobacco use type: Cigarette Cigarette Packs Per Day: 1.5 Cigarettes Per Day: 20 Years Smoked: 40 +/- Smoked in Last 30 Days: Yes Second Hand Smoke Exposure: No Use of substances other than those prescribed or required for medical reasons: No Advance Directives: Yes Advance Directives on File: Yes Advance Directives Date on File: 11/24/21 Do you have a plan to hurt others: No Plan service: No Physical Exam Vital Signs: Vital Signs: Last Vital Signs Temp 98 F 01/09/24 04:24 Pulse 70 01/09/24 04:24 Resp 18 01/09/24 04:24 BP 117/66 01/09/24 04:24 Pulse Ox 98 01/09/24 04:24 O2 Del Method Room Air 01/09/24 04:24 BMI result Body Mass Index 45.6 Const: Other: Appearance: Alert. Oriented X3. No acute distress. Eyes: Pupils equal, round and reactive to light. ENT: Pharynx normal. Neck: Normal inspection. Neck supple. No lymph nodes noted. No crepitus CVS: Normal heart rate and rhythm. Pulses normal. Normal S1 and S2 Respiratory: No respiratory distress. Breath sounds normal. No Wheezing. No rales Abdomen: Soft and nontender. No rigidity. No distention. Back: Pain to palpation over the coccyx area, no ecchymosis Skin: Skin warm and dry. Normal skin color. Normal skin turgor. No ecchymosis over the scalp Extremities: No lower extremity edema. No Lacerations. No Rash Neuro: Oriented X 3. No motor deficit. No sensory deficit. Moving all extremities. No slurred speech. CN 2 through 12 grossly intact Psych: calm, cooperative, normal affect Course Course Course Narrative: -patient's head CT and neck CT pending, coccyx x-ray pending -patient was given 5 mg of p.o. oxycodone Medications Administered Discontinued Medications Generic Name Dose Route Start Last Admin Trade Name Freq PRN Reason Stop Dose Admin Oxycodone HCl 5 mg 01/09/24 04:49 01/09/24 05:18 Oxycodone Hcl Immed Release 5 Mg Tablet PO 01/09/24 04:50 5 mg ONCE ONE Administration Medical Decision Making Medical Decision Making [facility] Narrative: -my interpretation of CT scan of the head: No intracranial bleed. Radiology report confirms no intracranial pathology, no cervical fracture or dislocation -sacrum/coccyx x-ray: No obvious abnormality -patient ambulatory -denies urinary/fecal incontinence/retention -patient was given a dose of p.o. oxycodone which she has had in the past which worked well for pain for her. -patient declined PT case management, states that she will be able to go home Differential Diagnosis Differential Diagnoses: The differential diagnosis associated with the presentation includes (Intracranial bleed, cervical injury, coccyx fracture, contusions) Independent Interpretation I performed an independent interpretation of an: CT Scan Radiology Impression Discussion of test interpretation with radiology: I have reviewed the radiologist's reading. Radiologist Impression: There are no fractures. No bone, joint or soft tissue abnormality is demonstrated. There is lower lumbar disc degenerative change. XR/XR sacrum coccyx min 2V IMPRESSION: No acute osseous abnormality. FINDINGS: The lateral, third and fourth ventricles are normally outlined. The cortical sulci and basal cisterns are normally outlined as well. There is no acute territorial defect, hemorrhage or midline shift. The extra-axial spaces are unremarkable Calvarium/scalp: Intact. Maxillofacial sinuses and mastoids: Clear as visualized. Cervical spine: Motion limits evaluation of the cervical spine. There is mild reversal of the expected cervical spine curvature. There is diffuse nyqc-ym-twsjcdve cervical disc degenerative change most pronounced at C5-C6 and C6-C7 with loss of disc space, endplate change and posterior osteophytes associated with diffuse dopz-ie-eravfjli facet osteoarthritic atrophic change with multilevel mild to moderate spinal canal and neuroforaminal narrowing. No fracture is seen. The soft tissues are unremarkable. The visualized upper lung savage are clear. CT/CT head/brain wo IV con IMPRESSION: 1. No acute intracranial pathology. 2. Motion limits evaluation of the cervical spine. There is no evidence for acute fracture or dislocation. 3. There is diffuse rydm-pe-cfcvccwr cervical spondylosis, most pronounced at C5-C6 and C6-C7 with multilevel mild to moderate spinal canal and neuroforaminal narrowing. Discharge Plan Discharge Clinical Impression: Multiple contusions Patient Disposition: Home, Self-Care Instructions: Contusion in Adults (ED) Additional Instructions: Please follow-up with your primary care physician tomorrow. If you have any worsening or new symptoms, please return to the emergency room or call 911 Prescriptions: New oxycodone 5 mg tablet 5 mg PO BID PRN (Reason: pain) Qty: 7 0RF Rx Instructions: Partial Fill upon patient request. No Action amiodarone 200 mg tablet 200 mg PO DAILY Qty: 30 3RF metoprolol succinate 50 mg tablet extended release 24 hr 50 mg PO BID 30 Days Qty: 60 3RF Protocol: Hold for SBP/HR < HOLD for SBP < : 90 HOLD for HR < : 60 Rx Instructions: Replaces prior dose of 75 mg twice daily penicillin V potassium 250 mg Tablet 250 mg PO BID albuterol sulfate 90 mcg/actuation Hfa Aerosol Inhaler 2 puff INHALATION Q4-6H PRN (Reason: Respiratory Distress) loratadine 10 mg Tablet 10 mg PO DAILY rosuvastatin 10 mg Tablet 10 mg PO DAILY duloxetine 60 mg Capsule,Delayed Release(Dr/Ec) 60 mg PO DAILY Rx Instructions: TAKE WITH 40MG duloxetine 40 mg Capsule, Delayed Rel Sprinkle 40 mg PO DAILY Rx Instructions: TAKE WITH 60MG nitrofurantoin monohyd/m-cryst 100 mg capsule 100 mg PO BID lamotrigine 200 mg tablet 200 mg PO BEDTIME Rx Instructions: TAKE WITH 50MG lamotrigine 25 mg tablet 50 mg PO BEDTIME Rx Instructions: TAKE WITH 200MG clonidine HCl 0.1 mg tablet 0.1 mg PO BID PRN (Reason: Anxiety) ipratropium bromide 21 mcg (0.03 %) spray,non-aerosol 2 spray intranasal BID PRN (Reason: Allergy Symptoms) cyclobenzaprine 5 mg tablet 5 mg PO BEDTIME PRN (Reason: muscle spasm) Xarelto 20 mg Tablet 20 mg PO DAILY Qty: 30 0RF Rx Instructions: Replaces warfarin furosemide 40 mg tablet 40 mg PO DAILY Qty: 30 0RF nicotine 21 mg/24 hr patch 24 hour 21 mg transdermal DAILY PRN (Reason: Nicotine Cravings) oxycodone 5 mg tablet 5 mg PO BID PRN (Reason: pain) Qty: 10 0RF Rx Instructions: Partial Fill upon patient request. oxycodone 5 mg tablet 5 mg PO Q6H PRN (Reason: pain) Qty: 12 0RF Rx Instructions: Partial Fill upon patient request. dexamethasone 4 mg tablet 4 mg PO BID Qty: 6 0RF diltiazem HCl [Cardizem CD] 240 mg capsule,extended release 24hr 240 mg PO DAILY Qty: 30 0RF oxycodone 5 mg tablet 5 mg PO Q6H PRN (Reason: pain) Qty: 14 0RF Rx Instructions: Partial Fill upon patient request. oxycodone 5 mg capsule 5 mg PO Q6H PRN (Reason: pain) Qty: 14 0RF Rx Instructions: Partial Fill upon patient request. cyclobenzaprine 10 mg tablet 10 mg PO TID PRN (Reason: muscle spasm) Qty: 14 0RF ropinirole 0.5 mg tablet 0.5 mg PO TID budesonide-formoterol [Symbicort] 80-4.5 mcg/actuation HFA aerosol inhaler 2 puff inhalation BID Print Language: Kinyarwanda
[2024-01-09] MEDS: oxyCODONE HCl Immed Release 5 MG TABLET PO (05:18)
[2024-01-09 07:10] VITALS: BP 129/92; PULSE 76; RESP 18; TEMP 36.8; O2SAT 96
== END 2024-01-09 07:09 | disposition home or self-care (01) ==
PROVIDERS: Emergency Provider Emergency Medicine
DX: T14.8XXA Other injury of unspecified body region, initial encounter (principal); W18.30XA Fall on same level, unspecified, initial encounter; M54.50 Low back pain, unspecified; F17.210 Nicotine dependence, cigarettes, uncomplicated; Y93.89 Activity, other specified; Y92.9 Unspecified place or not applicable; Y99.9 Unspecified external cause status; Z79.01 Long term (current) use of anticoagulants
CPT/HCPCS: 70450; 72125; 72220; 99284

== ENCOUNTER 2024-01-20 20:29 | Emergency (ER) | payer OTHER, SELFPAY ==
[2024-01-20 20:54] VITALS: BP 147/93; PULSE 81; RESP 20; TEMP 36.6; O2SAT 98; BMI 44.4
== END 2024-01-21 03:00 | disposition left against medical advice (07) ==
PROVIDERS: Emergency Provider Emergency Medicine
DX: M54.50 Low back pain, unspecified (principal); Z53.21 Procedure and treatment not carried out due to patient leaving prior to being seen by health care provider
CPT/HCPCS: 99281

== ENCOUNTER 2024-02-24 01:27 | Emergency (ER) | payer OTHER, SELFPAY ==
[2024-02-24 01:30] VITALS: BP 133/52; PULSE 76; RESP 20; TEMP 36.4; O2SAT 96; BMI 44.3
[2024-02-24 01:49] LABS: Appearance Urine Cloudy; Color Urine Dark Yellow; Glucose Urine UA Negative (Negative); Leukocyte Esterase Urine Small (1+) (Negative); Nitrite Urine Negative (Negative); PH 5.5 (5.0-9.0); Specific Gravity - Urine >= 1.030 (1.005-1.025); UMIC TRIGGER UACC YES; Urine Blood Negative (Negative); Urine Ketones Trace mg/dL (Negative); Urine Protein 30 (1+) mg/dL (Neg-Trace)
[2024-02-24 02:10] LABS: Bacteria Urine 2+ (None Seen); Hyaline Casts Urine 0-2 /LPF (0-2); RBC Urine 0-2 /HPF (0-2); UACC Culture Trigger YES
[2024-02-24 04:00] VITALS: BP 110/60; PULSE 72; RESP 16; TEMP 36.4; O2SAT 96
--- NOTE | 2024-02-24 05:47 | ED.BACK ---
HPI - Back Pain/Injury General Chief Complaint: Back Pain/Injury Stated Complaint: pain in back Time Seen by Provider: 02/24/24 04:57 History of Present Illness HPI Narrative: Patient is a 58-year-old female with a history of back pain that is been ongoing for years. Patient had a nerve stimulator placed beginning of January. Since then been having pain bandlike across the lower back. Been to [facility] multiple times. Been seen there was given narcotics initially. The nerve stimulator seems to help a little bit but not enough. There is no radiation of the pain. There is no bowel urinary incontinence. There is no focal weakness. Able to ambulate around the house. For longer distance patient relies on a walker. This is a chronic issue. Patient denies any trauma. Patient also has a history of gastric band. History of atrial fibrillation/flutter currently on Eliquis. Related Data Home Medications ?Medication ?Instructions ?Recorded ?Confirmed albuterol sulfate 90 mcg/actuation 2 puff inhalation Q4-6H PRN 11/24/21 03/24/23 aerosol inhaler Respiratory Distress duloxetine 40 mg capsule,delayed 40 mg PO DAILY 11/24/21 03/24/23 release sprinkle duloxetine 60 mg capsule,delayed 60 mg PO DAILY 11/24/21 03/24/23 release loratadine 10 mg tablet 10 mg PO DAILY 11/24/21 03/24/23 penicillin V potassium 250 mg 250 mg PO BID 11/24/21 03/24/23 tablet rosuvastatin 10 mg tablet 10 mg PO DAILY 11/24/21 03/24/23 nitrofurantoin 100 mg PO BID 12/31/21 03/24/23 monohydrate/macrocrystals 100 mg capsule ropinirole 0.5 mg tablet 0.5 mg PO TID 05/01/22 03/24/23 budesonide-formoterol HFA 80 2 puff inhalation BID 09/29/22 03/24/23 mcg-4.5 mcg/actuation aerosol inhaler (Symbicort) clonidine HCl 0.1 mg tablet 0.1 mg PO BID PRN Anxiety 02/05/23 03/24/23 cyclobenzaprine 5 mg tablet 5 mg PO BEDTIME PRN muscle spasm 02/05/23 03/24/23 ipratropium bromide 21 mcg (0.03 2 spray intranasal BID PRN Allergy 02/05/23 03/24/23 %) nasal spray Symptoms lamotrigine 200 mg tablet 200 mg PO BEDTIME 02/05/23 03/24/23 lamotrigine 25 mg tablet 50 mg PO BEDTIME 02/05/23 03/24/23 nicotine 21 mg/24 hr daily 21 mg transdermal DAILY PRN 02/19/23 03/24/23 transdermal patch Nicotine Cravings Previous Rx's ?Medication ?Instructions ?Recorded furosemide 40 mg tablet 40 mg PO DAILY #30 tabs 02/10/23 rivaroxaban 20 mg tablet (Xarelto) 20 mg PO DAILY #30 tabs 02/10/23 diltiazem HCl 240 mg 240 mg PO DAILY #30 caps 02/27/23 capsule,extended release 24 hr (Cardizem CD) amiodarone 200 mg tablet 200 mg PO DAILY #30 tabs 05/05/23 metoprolol succinate 50 mg 50 mg PO BID 30 days #60 tabs 05/05/23 tablet,extended release 24 hr oxycodone 5 mg tablet 5 mg PO BID PRN pain #10 tabs 09/04/23 oxycodone 5 mg tablet 5 mg PO Q6H PRN pain #14 tabs 09/09/23 cyclobenzaprine 10 mg tablet 10 mg PO TID PRN muscle spasm #14 11/19/23 tabs oxycodone 5 mg capsule 5 mg PO Q6H PRN pain #14 caps 11/19/23 dexamethasone 4 mg tablet 4 mg PO BID #6 tabs 01/02/24 oxycodone 5 mg tablet 5 mg PO Q6H PRN pain #12 tabs 01/02/24 oxycodone 5 mg tablet 5 mg PO BID PRN pain #7 tabs 01/09/24 Allergies Allergy/AdvReac Type Severity Reaction Status Date / Time adhesive Allergy Rash Verified 02/24/24 01:36 Review of Systems Review of Systems: Positive back pain Yes all other systems are reviewed and are negative PMFSH Past Medical History Medical History Right heart failure Atrial flutter History of cardioversion Leg edema Chronic respiratory failure requiring treatment with nocturnal BPAP by mask Morbid obesity Diabetes HLD (hyperlipidemia) HTN (hypertension) DVT of axillary vein, acute Arthritis Scoliosis Disc disorder of cervical region Disc disorder of lumbar region COPD (chronic obstructive pulmonary disease) Surgical History History of prolapse of bladder Hx of abdominoplasty History of partial hysterectomy Hx of esophagogastroduodenoscopy Hx of gastric bypass Status post knee replacement Previous back surgery Family History Family History Father Stroke Other Diabetes Social History Social History Household Members: Family Household Members Other:: daughter Housing: Apartment Do you presently have visiting nurse or other home services: Yes Alcohol intake: never Comment: PT REFUSING ALL SAFTEY AND FALL PRECAUTIONS Patient Tobacco Use Status: Current everyday Tobacco user Tobacco use type: Cigarette Cigarette Packs Per Day: 1.5 Cigarettes Per Day: 20 Years Smoked: 40 +/- Smoked in Last 30 Days: Yes Second Hand Smoke Exposure: No Use of substances other than those prescribed or required for medical reasons: No Advance Directives: Yes Advance Directives on File: Yes Advance Directives Date on File: 11/24/21 service: No Physical Exam Vital Signs: Vital Signs: Last Vital Signs Temp 97.6 F 02/24/24 04:00 Pulse 72 02/24/24 04:00 Resp 16 02/24/24 04:00 BP 110/60 02/24/24 04:00 Pulse Ox 96 02/24/24 04:00 O2 Del Method Room Air 02/24/24 04:00 BMI result Body Mass Index 44.3 Appearance: Alert. Oriented X3. No acute distress. Eyes: Pupils equal, round and reactive to light. ENT: Pharynx normal. Neck: Normal inspection. Neck supple. No lymph nodes noted. No crepitus CVS: Normal heart rate and rhythm. Pulses normal. Normal S1 and S2 Respiratory: No respiratory distress. Breath sounds normal. No Wheezing. No rales Abdomen: Soft and nontender. No rigidity. No distention. good BS x4 Skin: Skin warm and dry. Normal skin color. Normal skin turgor. Extremities: No lower extremity edema. Neurovascular intact to all extremities. No Lacerations. No Rash. Patient was able to sit on the side of the bed without any difficulties. Good sensation in bilateral lower extremity. Able to ambulate without any difficulty. Patient has no spinal tenderness elicited on palpation. There is no CVA tenderness noted. Neuro: Oriented X 3. No motor deficit. No sensory deficit. Moving all extermities. No slurred speech Medical Decision Making Medical Decision Making [facility] Narrative: Pain appears chronic. There is no trauma to suggest patient has a retroperitoneal bleed. There is no evidence for cauda equinus syndrome there is no bowel urinary incontinence is no focal weakness. Patient's pain is been there for a few years. Has not resolved after the nerve stimulator. Because patient is on Eliquis she can not take NSAIDs. Been taking Tylenol and a muscle relaxant. Patient was on narcotics earlier right after the surgery. That is seems to help. Explained to patient he had she needs to follow-up on an outpatient basis with her orthopedist. Will give 1 dose of pain medication here in the emergency department. She is in stable condition. Will discharge home Differential Diagnosis Differential Diagnoses: The differential diagnosis associated with the presentation includes Musculoskeletal back pain, cauda equinus syndrome, fracture, retroperitoneal bleed Admission/Observation Consideration of admission/observation: Escalation of care including admission/observation considered Pain is controlled no need for admission Lab Data [facility] Lab Attestation statement: I reviewed the patient's lab results. Labs: Lab Results 02/24/24 Range/Units 01:43 Urine Color Dark Yellow Urine Appearance Cloudy Urine pH 5.5 (5.0-9.0) Ur Specific [place] >= 1.030 H (1.005-1.025) Urine Protein 30 (1+) H (Neg-Trace) mg/dL Urine Glucose (UA) Negative (Negative) mg/dL Urine Ketones Trace (Negative) mg/dL Urine Blood Negative (Negative) Urine Nitrite Negative (Negative) Ur Leukocyte Esterase Small (1+) H (Negative) Urine RBC 0-2 (0-2) /HPF Urine WBC 11-20 (0-5) /HPF Ur Squamous Epith Cells 11-20 (0-2) /HPF Urine Bacteria 2+ (None Seen) Hyaline Casts 0-2 (0-2) /LPF Social Determinants Patient?s care significantly limited by Social Determinants of Health including: Problems related to primary support group Discharge Plan Discharge Clinical Impression: Back pain Patient Disposition: Home, Self-Care Instructions: Back Pain (ED) Prescriptions: No Action amiodarone 200 mg tablet 200 mg PO DAILY Qty: 30 3RF metoprolol succinate 50 mg tablet extended release 24 hr 50 mg PO BID 30 Days Qty: 60 3RF Protocol: Hold for SBP/HR < HOLD for SBP < : 90 HOLD for HR < : 60 Rx Instructions: Replaces prior dose of 75 mg twice daily penicillin V potassium 250 mg Tablet 250 mg PO BID albuterol sulfate 90 mcg/actuation Hfa Aerosol Inhaler 2 puff INHALATION Q4-6H PRN (Reason: Respiratory Distress) loratadine 10 mg Tablet 10 mg PO DAILY rosuvastatin 10 mg Tablet 10 mg PO DAILY duloxetine 60 mg Capsule,Delayed Release(Dr/Ec) 60 mg PO DAILY Rx Instructions: TAKE WITH 40MG duloxetine 40 mg Capsule, Delayed Rel Sprinkle 40 mg PO DAILY Rx Instructions: TAKE WITH 60MG nitrofurantoin monohyd/m-cryst 100 mg capsule 100 mg PO BID lamotrigine 200 mg tablet 200 mg PO BEDTIME Rx Instructions: TAKE WITH 50MG lamotrigine 25 mg tablet 50 mg PO BEDTIME Rx Instructions: TAKE WITH 200MG clonidine HCl 0.1 mg tablet 0.1 mg PO BID PRN (Reason: Anxiety) ipratropium bromide 21 mcg (0.03 %) spray,non-aerosol 2 spray intranasal BID PRN (Reason: Allergy Symptoms) cyclobenzaprine 5 mg tablet 5 mg PO BEDTIME PRN (Reason: muscle spasm) Xarelto 20 mg Tablet 20 mg PO DAILY Qty: 30 0RF Rx Instructions: Replaces warfarin furosemide 40 mg tablet 40 mg PO DAILY Qty: 30 0RF nicotine 21 mg/24 hr patch 24 hour 21 mg transdermal DAILY PRN (Reason: Nicotine Cravings) oxycodone 5 mg tablet 5 mg PO BID PRN (Reason: pain) Qty: 10 0RF Rx Instructions: Partial Fill upon patient request. oxycodone 5 mg tablet 5 mg PO Q6H PRN (Reason: pain) Qty: 12 0RF Rx Instructions: Partial Fill upon patient request. dexamethasone 4 mg tablet 4 mg PO BID Qty: 6 0RF diltiazem HCl [Cardizem CD] 240 mg capsule,extended release 24hr 240 mg PO DAILY Qty: 30 0RF oxycodone 5 mg tablet 5 mg PO Q6H PRN (Reason: pain) Qty: 14 0RF Rx Instructions: Partial Fill upon patient request. oxycodone 5 mg capsule 5 mg PO Q6H PRN (Reason: pain) Qty: 14 0RF Rx Instructions: Partial Fill upon patient request. cyclobenzaprine 10 mg tablet 10 mg PO TID PRN (Reason: muscle spasm) Qty: 14 0RF oxycodone 5 mg tablet 5 mg PO BID PRN (Reason: pain) Qty: 7 0RF Rx Instructions: Partial Fill upon patient request. ropinirole 0.5 mg tablet 0.5 mg PO TID budesonide-formoterol [Symbicort] 80-4.5 mcg/actuation HFA aerosol inhaler 2 puff inhalation BID Referrals: Kyle Ahumada DO [Primary Care Provider] - 02/26/24 (Please also follow-up with [facility]) Print Language: [place]
[2024-02-24] MEDS: HYDROcodone Bit/Acetam 5/325 TABLET 1 TAB PO (06:01)
[2024-02-24 06:05] VITALS: BP 110/60; PULSE 72; RESP 16; TEMP 36.4; O2SAT 96
== END 2024-02-24 06:06 | disposition home or self-care (01) ==
PROVIDERS: Emergency Provider Emergency Medicine Emergency Medical Services; PCP Family Medicine
DX: M54.50 Low back pain, unspecified (principal); I48.91 Unspecified atrial fibrillation; F17.210 Nicotine dependence, cigarettes, uncomplicated; Z79.01 Long term (current) use of anticoagulants; Z79.899 Other long term (current) drug therapy
CPT/HCPCS: 81001; 87086; 99283; 99284

== ENCOUNTER 2024-05-25 01:16 | Emergency (ER) | payer OTHER, SELFPAY ==
[2024-05-25 01:17] VITALS: BP 146/72; PULSE 72; RESP 20; TEMP 36.1; O2SAT 99; BMI 44.3
--- NOTE | 2024-05-25 02:11 | ED.BACK ---
HPI - Back Pain/Injury General Chief Complaint: Back Pain/Injury Stated Complaint: gen med Time Seen by Provider: 05/25/24 02:04 Source: patient Mode of arrival: ambulatory Limitations: no limitations History of Present Illness ED Provider: Dr. Yessi Bourgeois HPI Narrative: Patient comes to the emergency room complaining of acute on chronic bilateral back pain. Patient states that she has pain in the middle back and lower back. Patient denies UTI symptoms. Patient denies any heavy lifting. Patient states that every so many months she has an exacerbation. Patient can not get comfortable. Patient denies any falls or heavy lifting. Patient states that if she is sitting still the pain is not as bad but she moves or tries to sit up or lay down in bed, the pain gets much worse on both sides of the bags out meticulously with no radiation. Patient denies any urinary/fecal incontinence/retention - Related Data Home Medications ?Medication ?Instructions ?Recorded ?Confirmed albuterol sulfate 90 mcg/actuation 2 puff inhalation Q4-6H PRN 11/24/21 03/24/23 aerosol inhaler Respiratory Distress duloxetine 40 mg capsule,delayed 40 mg PO DAILY 11/24/21 03/24/23 release sprinkle duloxetine 60 mg capsule,delayed 60 mg PO DAILY 11/24/21 03/24/23 release loratadine 10 mg tablet 10 mg PO DAILY 11/24/21 03/24/23 penicillin V potassium 250 mg 250 mg PO BID 11/24/21 03/24/23 tablet rosuvastatin 10 mg tablet 10 mg PO DAILY 11/24/21 03/24/23 nitrofurantoin 100 mg PO BID 12/31/21 03/24/23 monohydrate/macrocrystals 100 mg capsule ropinirole 0.5 mg tablet 0.5 mg PO TID 05/01/22 03/24/23 budesonide-formoterol HFA 80 2 puff inhalation BID 09/29/22 03/24/23 mcg-4.5 mcg/actuation aerosol inhaler (Symbicort) clonidine HCl 0.1 mg tablet 0.1 mg PO BID PRN Anxiety 02/05/23 03/24/23 cyclobenzaprine 5 mg tablet 5 mg PO BEDTIME PRN muscle spasm 02/05/23 03/24/23 ipratropium bromide 21 mcg (0.03 2 spray intranasal BID PRN Allergy 02/05/23 03/24/23 %) nasal spray Symptoms lamotrigine 200 mg tablet 200 mg PO BEDTIME 02/05/23 03/24/23 lamotrigine 25 mg tablet 50 mg PO BEDTIME 02/05/23 03/24/23 nicotine 21 mg/24 hr daily 21 mg transdermal DAILY PRN 02/19/23 03/24/23 transdermal patch Nicotine Cravings Previous Rx's ?Medication ?Instructions ?Recorded furosemide 40 mg tablet 40 mg PO DAILY #30 tabs 02/10/23 rivaroxaban 20 mg tablet (Xarelto) 20 mg PO DAILY #30 tabs 02/10/23 diltiazem HCl 240 mg 240 mg PO DAILY #30 caps 02/27/23 capsule,extended release 24 hr (Cardizem CD) amiodarone 200 mg tablet 200 mg PO DAILY #30 tabs 05/05/23 metoprolol succinate 50 mg 50 mg PO BID 30 days #60 tabs 05/05/23 tablet,extended release 24 hr oxycodone 5 mg tablet 5 mg PO BID PRN pain #10 tabs 09/04/23 oxycodone 5 mg tablet 5 mg PO Q6H PRN pain #14 tabs 09/09/23 cyclobenzaprine 10 mg tablet 10 mg PO TID PRN muscle spasm #14 11/19/23 tabs oxycodone 5 mg capsule 5 mg PO Q6H PRN pain #14 caps 11/19/23 dexamethasone 4 mg tablet 4 mg PO BID #6 tabs 01/02/24 oxycodone 5 mg tablet 5 mg PO Q6H PRN pain #12 tabs 01/02/24 oxycodone 5 mg tablet 5 mg PO BID PRN pain #7 tabs 01/09/24 tramadol 50 mg tablet 50 mg PO BID PRN pain #7 tabs 05/25/24 Allergies Allergy/AdvReac Type Severity Reaction Status Date / Time adhesive Allergy Rash Verified 05/25/24 01:18 Review of Systems Review of Systems: Constitutional : No Weight loss, No Fever, No Chills, No Night Sweats, No Fatigue, No Malaise ENT/Mouth : No Hearing loss, No Ear Pain, No Nasal Congestion, No Sinus Pain, No Hoarseness, No sore throat, No Rhinorrhea, No Swallowing Difficulty Eyes: No Eye Pain, No Swelling, No Redness, No Foreign Body, No Discharge, No Vision Changes Cardiovascular : No Chest Pain, No SOB, No Dyspnea on Exertion, No Orthopnea, No Edema, No Palpitations Respiratory : No Cough, No Sputum, No Wheezing, No Smoke Exposure, No Dyspnea Gastrointestinal : No Nausea, No Vomiting, No Diarrhea, No Constipation, No abdominal Pain, No Hematochezia, No Melena Genitourinary : no irregular bleeding, No Dysuria, No Urinary Frequency, No Hematuria, No Urinary Incontinence, No Urgency, No Flank Pain, No Urinary Flow Changes, No Hesitancy Musculoskeletal : Acute on chronic lower and middle back pain No joint pain, No Myalgias, No Joint Swelling Skin : No Skin Lesions, No rash Neuro : No Weakness, No Numbness, No Paresthesias, No Loss of Consciousness, No Dizziness, No Headache Psych : No Anxiety/Panic, No Depression, No SI/HI/AH/VH, No Social Issues, Heme/Lymph: No Bruising, No Bleeding,No Lymphadenopathy Endocrine : No Polyuria, No Polydipsia, No Temperature Intolerance [facility] Past Medical History Medical History Right heart failure Atrial flutter History of cardioversion Leg edema Chronic respiratory failure requiring treatment with nocturnal BPAP by mask Morbid obesity Diabetes HLD (hyperlipidemia) HTN (hypertension) DVT of axillary vein, acute Arthritis Scoliosis Disc disorder of cervical region Disc disorder of lumbar region COPD (chronic obstructive pulmonary disease) Surgical History History of prolapse of bladder Hx of abdominoplasty History of partial hysterectomy Hx of esophagogastroduodenoscopy Hx of gastric bypass Status post knee replacement Previous back surgery Family History Family History Father Stroke Other Diabetes Social History Social History Household Members: Family Household Members Other:: daughter Housing: Apartment Do you presently have visiting nurse or other home services: Yes Alcohol intake: never Comment: PT REFUSING ALL SAFTEY AND FALL PRECAUTIONS Patient Tobacco Use Status: Current everyday Tobacco user Tobacco use type: Cigarette Cigarette Packs Per Day: 1.5 Cigarettes Per Day: 20 Years Smoked: 40 +/- Second Hand Smoke Exposure: No Advance Directives: No Advance Directives Date on File: 11/24/21 Do you have a plan to hurt others: No Plan service: No Physical Exam Vital Signs: Vital Signs: Last Vital Signs Temp 97.0 F 05/25/24 01:17 Pulse 72 05/25/24 01:17 Resp 20 05/25/24 01:17 BP 146/72 H 05/25/24 01:17 Pulse Ox 99 05/25/24 01:17 O2 Del Method Room Air 05/25/24 01:17 BMI result Body Mass Index 44.3 Const: Other: Appearance: Alert. Oriented X3. No acute distress. Eyes: Pupils equal, round and reactive to light. ENT: Pharynx normal. Neck: Normal inspection. Neck supple. No lymph nodes noted. No crepitus CVS: Normal heart rate and rhythm. Pulses normal. Normal S1 and S2 Respiratory: No respiratory distress. Breath sounds normal. No Wheezing. No rales Abdomen: Soft and nontender. No rigidity. No distention. Back: Pain to palpation over paraspinal muscles, no lumbar or thoracic spine tenderness. Pain reproducible with flexion and extension. Skin: Skin warm and dry. Normal skin color. Normal skin turgor. Extremities: No lower extremity edema. No Lacerations. No Rash Neuro: Oriented X 3. No motor deficit. No sensory deficit. Moving all extremities. No slurred speech. CN 2 through 12 grossly intact Psych: calm, cooperative, normal affect Medical Decision Making Medical Decision Making MDM Narrative: -patient takes Xarelto, NSAIDs to be avoided. -patient has an appointment with her PCP and 20 days from now. -in the ED patient got a dose of IM dexamethasone and morphine. Discharge Plan Discharge Clinical Impression: Chronic back pain Patient Disposition: Home, Self-Care Instructions: Chronic Back Pain (DC) Additional Instructions: Please follow-up with your primary care physician tomorrow. If you have any worsening or new symptoms, please return to the emergency room or call 911 Prescriptions: New tramadol 50 mg tablet 50 mg PO BID PRN (Reason: pain) Qty: 7 0RF No Action amiodarone 200 mg tablet 200 mg PO DAILY Qty: 30 3RF metoprolol succinate 50 mg tablet extended release 24 hr 50 mg PO BID 30 Days Qty: 60 3RF Protocol: Hold for SBP/HR < HOLD for SBP < : 90 HOLD for HR < : 60 Rx Instructions: Replaces prior dose of 75 mg twice daily penicillin V potassium 250 mg Tablet 250 mg PO BID albuterol sulfate 90 mcg/actuation Hfa Aerosol Inhaler 2 puff INHALATION Q4-6H PRN (Reason: Respiratory Distress) loratadine 10 mg Tablet 10 mg PO DAILY rosuvastatin 10 mg Tablet 10 mg PO DAILY duloxetine 60 mg Capsule,Delayed Release(Dr/Ec) 60 mg PO DAILY Rx Instructions: TAKE WITH 40MG duloxetine 40 mg Capsule, Delayed Rel Sprinkle 40 mg PO DAILY Rx Instructions: TAKE WITH 60MG nitrofurantoin monohyd/m-cryst 100 mg capsule 100 mg PO BID lamotrigine 200 mg tablet 200 mg PO BEDTIME Rx Instructions: TAKE WITH 50MG lamotrigine 25 mg tablet 50 mg PO BEDTIME Rx Instructions: TAKE WITH 200MG clonidine HCl 0.1 mg tablet 0.1 mg PO BID PRN (Reason: Anxiety) ipratropium bromide 21 mcg (0.03 %) spray,non-aerosol 2 spray intranasal BID PRN (Reason: Allergy Symptoms) cyclobenzaprine 5 mg tablet 5 mg PO BEDTIME PRN (Reason: muscle spasm) Xarelto 20 mg Tablet 20 mg PO DAILY Qty: 30 0RF Rx Instructions: Replaces warfarin furosemide 40 mg tablet 40 mg PO DAILY Qty: 30 0RF nicotine 21 mg/24 hr patch 24 hour 21 mg transdermal DAILY PRN (Reason: Nicotine Cravings) oxycodone 5 mg tablet 5 mg PO BID PRN (Reason: pain) Qty: 10 0RF Rx Instructions: Partial Fill upon patient request. oxycodone 5 mg tablet 5 mg PO Q6H PRN (Reason: pain) Qty: 12 0RF Rx Instructions: Partial Fill upon patient request. dexamethasone 4 mg tablet 4 mg PO BID Qty: 6 0RF diltiazem HCl [Cardizem CD] 240 mg capsule,extended release 24hr 240 mg PO DAILY Qty: 30 0RF oxycodone 5 mg tablet 5 mg PO Q6H PRN (Reason: pain) Qty: 14 0RF Rx Instructions: Partial Fill upon patient request. oxycodone 5 mg capsule 5 mg PO Q6H PRN (Reason: pain) Qty: 14 0RF Rx Instructions: Partial Fill upon patient request. cyclobenzaprine 10 mg tablet 10 mg PO TID PRN (Reason: muscle spasm) Qty: 14 0RF oxycodone 5 mg tablet 5 mg PO BID PRN (Reason: pain) Qty: 7 0RF Rx Instructions: Partial Fill upon patient request. ropinirole 0.5 mg tablet 0.5 mg PO TID budesonide-formoterol [Symbicort] 80-4.5 mcg/actuation HFA aerosol inhaler 2 puff inhalation BID Print Language: [place]
[2024-05-25] MEDS: Morphine Sulfate 2 MG/ML CARTRIDGE IM (02:21)
[2024-05-25] MEDS: dexAMETHasone sod phosphate 4 MG/ML VIAL IM (02:22)
[2024-05-25 02:35] VITALS: BP 146/72; PULSE 72; RESP 20; TEMP 36.1; O2SAT 99
== END 2024-05-25 02:37 | disposition home or self-care (01) ==
PROVIDERS: Emergency Provider Emergency Medicine; PCP Family Medicine
DX: M54.50 Low back pain, unspecified (principal); G89.29 Other chronic pain; I10 Essential (primary) hypertension; E11.9 Type 2 diabetes mellitus without complications; E78.5 Hyperlipidemia, unspecified
CPT/HCPCS: 96372; 99284; J1100; J2270

== ENCOUNTER 2024-09-09 22:09 | Emergency (ER) | payer OTHER, SELFPAY ==
[2024-09-09 22:17] VITALS: BP 126/69; PULSE 85; RESP 18; TEMP 36.6; O2SAT 94; BMI 44.9
[2024-09-09 22:47] LABS: MANUAL DIFF FLAG NO
[2024-09-09 22:48] LABS: Basophils Absolute Auto 0.1 X10*3/uL (0.0-0.2); Basophils Percent Auto 0.6 % (0-2); Eosinophils Absolute Auto 0.5 X10*3/uL (0.0-0.4); Eosinophils Percent Auto 6.2 % (0-4); Hematocrit 42.7 % (37.0-47.0); Hemoglobin 13.6 g/dl (12.0-16.0); Imm Gran Abs Auto 0.01 X10*3/uL (0.00-0.03); Imm Gran Pct Auto 0.1 % (0.0-0.4); Lymphocytes Absolute Auto 2.4 X10*3/uL (1.2-4.9); Lymphocytes Percent Auto 29.5 % (20-40); Mean Corpuscular HGB Conc 31.9 g/dl (31.0-35.0); Mean Corpuscular Hemoglobin 26.8 pg (27.0-33.0); Mean Corpuscular Volume 84.2 fL (80.0-98.0); Mean Platelet Volume 9.7 fL (9.4-12.3); Monocytes Absolute Auto 0.7 X10*3/uL (0.1-1.2); Monocytes Percent Auto 8.9 % (2-11); Neutrophils Absolute Auto 4.4 x10*3/uL (2.0-8.3); Neutrophils Percent Auto 54.7 % (45-73); Platelet Count 274 X10*3/uL (160-400); Red Blood Count 5.07 X10*6/uL (4.20-5.50); Red Cell Distribution Width 15.2 % (11.0-16.0); White Blood Count 8.1 X10*3/uL (4.8-10.8)
[2024-09-09 23:01] LABS: Alanine Aminotransferase 24 U/L (0-31); Albumin Level 3.8 g/dL (3.5-5.0); Alkaline Phosphatase 112 U/L (39-117); Anion Gap 14 (12-20); Aspartate Amino Transferase 32 U/L (5-31); Bilirubin Total 0.4 mg/dL (0.0-1.0); Blood Urea Nitrogen 13 mg/dL (9-16); Calcium 9.5 mg/dL (8.4-10.2); Carbon Dioxide 24 mmol/L (22-29); Chloride 104 mmol/L (96-108); Creatinine Clr Calc Pharmacy 97.5; Estimated Glomerular Filt Rate > 60; Glucose Random 160 mg/dL (60-115); Potassium 4.1 mmol/L (3.3-5.1); Sodium 138 mmol/L (135-145); Total Protein 7.7 g/dL (6.5-8.0)
[2024-09-09 23:07] LABS: B Type Natriuretic Peptide 112 pg/mL (<100)
--- OUTSIDE RECORDS SUMMARY | 2024-09-10 01:05 | XMS_ITS | Data Portability ---
Author Organization [employer] Address [address] [place] [id number] Care Team Providers Care Child Development Associate Teacher Name Role Phone ROXY VEE Primary Care Provider [facility] Referring Provider Assessment Encounter Date Assessment Date Assessment LastModified by Organization Details LastModified Time 03/31/2023 03/31/2023 I provided real -time medical direction via phone for this encounter, and was available for additional phone based assistance as needed. I have reviewed and agree with the Assessment and Plan as documented by the [employer] Machine. Patient given the opportunity to ask questions. Advised if develops worsening CP/severe SOB/turning blue/uncontrolle d n/v/d or black/bloody emesis or stool/ AMS/ syncope/ hi fever to call 911- verbalized understanding of instructions [email or web address] Not available 03/31/2023 16:38:11 08/22/2023 08/22/2023 I provided real -time medical direction via phone for this encounter, and was available for additional phone based assistance as needed. I have reviewed and agree with the Assessment and Plan as documented by the [employer] Machine. Patient given the opportunity to ask questions. As per above, patient with longstanding spinal issues and previously had a 10s unit to help manage pain. Currently having primarily cervical spine pain. She has taken only 1 dose of her Flexeril. She is on Eliquis and avoids nonsteroidals. She takes Tylenol for pain. Has not been in touch with her doctors regarding continued treatment or variations in her current plan. Suggested that she re-evaluate her pain and spasm regimen with her primary care provider. Also emphasized taking Flexeril on a scheduled basis instead of p.r.n. 1 dose daily. Also would recommend massage therapy and a soft collar to be used on an as needed basis. She may also benefit from a change in her antispasm medication with the use of something like baclofen or even potentially a low dose of Valium on a p.r.n. basis. There are no red flags or concerning signs or symptoms on exam. We did give a 1 time low-dose Toradol shot today of 15 mg x 1 and also discussed red flags as to when to seek a higher level of care. We discussed the diagnostic uncertainty of home visits and the risk associated with this. In this case, the patient and I felt this to be an acceptable and reasonable amount of risk given the benefit of avoiding an ED visit. We discussed the need to seek care urgently/emergen tly in the setting of any new or worsening serious symptoms [email or web address] Not available 08/22/2023 21:31:44 Plan of Treatment Reminders Order Date Submit Date Provider Last Modified By Organization Details Last Modified Time Details Appointments None recorded. Lab rapid flu (A+B) 2022 023 [email or web address], [address] [place] [address], [id number], 3 19:58:40 rapid strep group A, throat 2022 023 [email or web address], [address] [place] [address], [id number], 3 19:58:18 streptococc us group A, culture, throat 2022 023 [place] [facility], [address] [place] [address], [id number], 3 07:41:24 rapid strep group A, throat 2022 023 [email or web address], [address] [place] [address], [id number], 3 19:59:12 rapid SARS CoV 2 Ag, QL IA, respiratory specimen 2022 023 [email or web address] 0 [facility], [address] [place] [address], [id number], 14:49:50 Referral None recorded. Procedures None recorded. Surgeries None recorded. Imaging electrocard iogram 2022 023 [email or web address] 0 [facility], [address] [place] [address], [id number], 3 14:49:50 Medication Orders ketorolac 30 mg/mL (1 mL) injection solution [address] [id number], [address] [place] [address], [id number], 4 21:32:07 albuterol sulfate 2.5 mg/3 mL (0.083 %) solution for nebulizatio n 2022 023 [email or web address] 0 Not available 14:49:50 prednisone 20 mg tablet 2022 023 [email or web address] 0 Not available 14:49:50 prednisone 20 mg tablet 2022 023 [id number], [address], [place], [phone], 3 14:50:03 Patient TargetsNo targets recorded. Patient InstructionsNo instructions recorded. Reason for Referral None Reported. Results Created Date Observation Date Name Description Value Unit Range Abnormal Flag Note LastModifiedBy Organization Detail LastModifiedTime 03/31/2003/31/2023 rapid SARS CoV 2 Ag, QL IA, respi rator y speci men rapid SARS CoV 2 Ag, QL IA, respiratory specimen negati ve Not Available [facility] ed [address] [place] [address], [id number], 03/31/2023 14:06:51 07/17/20 23 07/17/2023 GROUP A STREP CULT. specimen description THROAT SWAB Not Available [facility] [address], [place], [address], 07/20/2023 07:41:24 07/17/20 23 07/17/2023 GROUP A STREP CULT. special requests NONE Not Available [facility] [address], [place], [address], 07/20/2023 07:41:24 07/17/20 23 07/20/2023 GROUP A STREP CULT. culture NO GROUP A BETA HEMOLY TIC STREPT OCOCCI ISOLAT ED Not Available [facility] [address], [place], [address], 07/20/2023 07:41:24 07/17/20 23 07/20/2023 GROUP A STREP CULT. report status FINAL 2022 Not Available [facility] [address], [place], [address], 07/20/2023 07:41:24 07/17/20 23 07/17/2023 rapid strep group A, throa t Strep negati ve Not Available [facility] [address] [place] [address], [id number], 07/17/2023 19:58:58 07/17/20 23 07/17/2023 rapid flu (A+B) Flu negati ve Not Available [facility] [address] [place] [address], [id number], 07/17/2023 19:56:02 07/17/20 23 07/17/2023 rapid strep group A, throa t Strep negati ve Not Available [facility] [address] [place] [address], [id number], 07/17/2023 19:56:05 02/28/20 23 02/27/2023 elect rocar diogr am No observ ation record ed. [email or web address] [facility] [address] [place] [address], [phone], 02/27/2023 14:53:09 03/31/20 23 03/31/2023 elect rocar diogr am No observ ation record ed. [email or web address] [facility] - [facility] [address] [place] [address], [id number], 03/31/2023 14:49:47 Result Notes None recorded. Procedures Surgical History None recorded. Imaging Results Imaging Date Name Status LastModified by Organization Details LastModified Time 02/27/2023 electrocardiogram completed [email or web address] [facility] - [facility] [address] [place] [address], [phone], 02/27/2023 14:53:09 03/31/2023 electrocardiogram completed [email or web address] [facility] [address] [place] [address], [phone], 03/31/2023 14:49:47 Procedure Notes None recorded. Medical Equipment None Reported. Allergies Allergen ID Allergen Name Allergen Category Reaction Reaction Severity Criticality Documentation Date Start Date Code Code System Note Provider Name and Address Organization Details Recorded Time 3214 adhesive tape environme nt,medica tion rash Not available Not available 03/31/2023 [id number] UNK Rubi Mesa MD [address] [place] [address],[address], [place], [phone], [facility] [place] [facility] 17:24:31 Medications Name Sig Start Date Stop Date Status Note LastModified by Organization Details LastModified Time celecoxib 200 mg capsule TAKE 1 CAPSULE BY MOUTH ONCE DAILY START AFTER SURGERY active Not Available Not Available No t Available penicillin V potassium 250 mg tablet TAKE 1 TABLET BY MOUTH TWICE DAILY CELLULITIS PROPHYLAXIS active Not Available Not Available Not Available cyclobenzapr ine 10 mg tablet TAKE 1 TABLET BY MOUTH THREE TIMES A DAY NEEDED FOR SPASM active Not Available Not Available No t Available furosemide 40 mg tablet TAKE 1 TABLET BY MOUTH DAILY active Not Available Not Available Not Available metformin 500 mg tablet active Not Available Not Available Not Available clonidine HCl 0.1 mg tablet active Not Available Not Available Not Available acetaminophe n 325 mg tablet active Not Available Not Available Not Available prednisone 10 mg tablet TAKE 1 TABLET BY MOUTH DAILY active Not Available Not Available Not Available gabapentin 600 mg tablet active Not Available Not Available Not Available lamotrigine 200 mg tablet TAKE 1 TABLET BY MOUTH AT BEDTIME DIRECTED active Not Available Not Available No t Available albuterol sulfate 2.5 mg/3 mL (0.083 %) solution for nebulization 3 ml x1 2022 active Not Available Not Available Not Avai lable diltiazem ER (XR/XT) 240 mg capsule,exte nded release 24 hr, controlled active Not Available Not Available N ot Available aspirin 325 mg tablet Take 1 tablet every day by oral route for 1 day. 2021 active Not Available Not Available Not Avai lable amiodarone 200 mg tablet TAKE 2 TABLETS BY MOUTH TWICE DAILY FOR 10 DAYS THEN TAKE 1 TABLET BY MOUTH EVERY DAY active Not Available Not Available No t Available metoprolol succinate ER 50 mg tablet,exten ded release 24 hr TAKE 1 AND 1/2 TABLETS BY MOUTH DAILY active Not Available Not Available No t Available meloxicam 15 mg tablet TAKE 1 TABLET BY MOUTH EVERY DAY WITH FOOD OR MILK active Not Available Not Available No t Available prednisone 20 mg tablet TAKE 2 TABLETS BY MOUTH EVERY DAY WITH MEALS FOR 4 DAYS active Not Available Not Available No t Available metoprolol succinate ER 100 mg tablet,exten ded release 24 hr TAKE 1 TABLET BY MOUTH DAILY active Not Available Not Available Not Available warfarin 2.5 mg tablet active Not Available Not Available No t Available chlorthalido ne 25 mg tablet active Not Available Not Available Not Available peg-electrol yte solution 420 gram oral solution active Not Available Not Available Not Available tramadol 50 mg tablet TAKE 1 TABLET BY MOUTH EVERY 8 HOURS NEEDED FOR SEVERE PAIN active Not Available Not Available Not Available lamotrigine 25 mg tablet TAKE 1 TABLET BY MOUTH FOR 14 DAYS THEN 2 DAILY active Not Available Not Available No t Available cefadroxil 500 mg capsule TAKE 1 CAPSULE BY MOUTH EVERY 12 HOURS FOR 10 DAYS active Not Available Not Available Not Available methenamine hippurate 1 gram tablet active Not Available Not Available Not Available hydromorphon e 2 mg tablet TAKE 1 TABLET BY MOUTH EVERY 4-6 HOURS NEEDED active Not Available Not Available No t Available warfarin 6 mg tablet TAKE 1 TABLET BY MOUTH DAILY AT 6 PM active Not Available Not Available No t Available nicotine (polacrilex) 4 mg gum CHEW 1 PIECE BY MOUTH EVERY 2 HOURS NEEDED active Not Available Not Available No t Available pantoprazole 40 mg tablet,delay ed release TAKE 1 TABLET BY MOUTH EVERY MORNING active Not Available Not Available No t Available ropinirole 0.5 mg tablet active Not Available Not Available Not Available calcipotrien e 0.005 % topical cream active Not Available Not Available Not Available prednisone 50 mg tablet TAKE 1 TABLET BY MOUTH DAILY active Not Available Not Available Not Available warfarin 5 mg tablet active Not Available Not Available No t Available oxycodone 5 mg capsule TAKE 1 CAPSULE BY MOUTH EVERY 8 HOURS NEEDED FOR PAIN active Not Available Not Available No t Available nicotine 21 mg/24 hr daily transdermal patch APPLY 1 PATCH TRANSDERMAL LY EVERY DAY active Not Available Not Available No t Available docusate sodium 100 mg capsule TAKE 1 CAPSULE BY MOUTH TWO TIMES A DAY. HOLD FOR LOOSE STOOLS active Not Available Not Available No t Available gabapentin 300 mg capsule TAKE 1 CAPSULE BY MOUTH AT BEDTIME FOR 1 WEEK THEN TWICE DAILY FOR 1 WEEK AND THEN INCREASE TO THREE TIMES DAILY active Not Available Not Available No t Available digoxin 125 mcg (0.125 mg) tablet TAKE 1 TABLET BY MOUTH EVERY 2 DAYS active Not Available Not Available No t Available lorazepam 1 mg tablet TAKE 1 TABLET BY MOUTH ONE HOUR BEFORE PROCEDURE. MAY TAKE ADDITIONAL 1 TABLET 30 MINUTES BEFORE PROCEDURE IF NEEDED active Not Available Not Available No t Available warfarin 1 mg tablet TAKE 1-10 TABLETS BY MOUTH EVERY DAY DIRECTED BY NEOS active Not Available Not Available No t Available estradiol 0.01% (0.1 mg/gram) vaginal cream APPLY HALF A GRAM VAGINALLY EVERY THURSDAY AND THURSDAY active Not Available Not Available No t Available albuterol sulfate HFA 90 mcg/actuatio n aerosol inhaler active Not Available Not Available Not Available colchicine 0.6 mg tablet active Not Available Not Available Not Available propranolol 20 mg tablet active Not Available Not Available Not Available diltiazem ER (XR/XT) 180 mg capsule,exte nded release 24 hr, controlled active Not Available Not Available N ot Available ipratropium bromide 21 mcg (0.03 %) nasal spray USE 2 SPRAYS IN EACH NOSTRIL TWICE DAILY active Not Available Not Available Not Available loratadine 10 mg tablet active Not Available Not Available Not Available oxycodone 5 mg tablet TAKE 1 TABLET BY MOUTH EVERY 8 HOURS NEEDED FOR SEVERE PAIN active Not Available Not Available Not Available enoxaparin 30 mg/0.3 mL subcutaneous syringe INJECT THE CONTENTS OF 1 SYRINGE SUBCUTANEOU SLY TWO TIMES A DAY FOR 7 DAYS. DISCONTINUE WHEN INR IS GREATER THAN 1.8 active Not Available Not Available No t Available cyclobenzapr ine 5 mg tablet TAKE 1 TABLET BY MOUTH AT BEDTIME NEEDED active Not Available Not Available No t Available rosuvastatin 10 mg tablet TAKE 1 TABLET BY MOUTH DAILY active Not Available Not Available Not Available metoprolol tartrate 25 mg tablet active Not Available Not Available No t Available nitrofuranto in monohydrate/ macrocrystal s 100 mg capsule active Not Available Not Available Not Available duloxetine 20 mg capsule,hayley yed release active Not Available Not Available Not Available duloxetine 60 mg capsule,hayley yed release TAKE 1 CAPSULE BY MOUTH EVERY MORNING active Not Available Not Available No t Available pregabalin 75 mg capsule TAKE 1 CAPSULE BY MOUTH TWICE DAILY active Not Available Not Available No t Available Symbicort 80 mcg-4.5 mcg/actuatio n HFA aerosol inhaler active Not Available Not Available Not Available peg 3350-electro lytes 236 gram-22.74 gram-6.74 gram-5.86 gram solution MIX AND DRINK DIRECTED active Not Available Not Available No t Available FreeStyle Vaughn Lite kit CHECK GLUCOSE TWICE DAILY active Not Available Not Available Not Available oxycodone 10 mg tablet TAKE 1 TABLET BY MOUTH EVERY 4 HOURS NEEDED FOR PAIN active Not Available Not Available No t Available Multaq 400 mg tablet TAKE 1 TABLET BY MOUTH TWICE DAILY WITH FOOD active Not Available Not Available No t Available Xarelto 20 mg tablet TAKE 1 TABLET BY MOUTH DAILY. REPLACES WARFARIN active Not Available Not Available No t Available [facility] spacer active Not Available Not Available Not Available Trulicity 1.5 mg/0.5 mL subcutaneous pen injector active Not Available Not Available Not Available Trulicity 0.75 mg/0.5 mL subcutaneous pen injector active Not Available Not Available Not Available Mitigare 0.6 mg capsule TAKE 1 CAPSULE BY MOUTH DAILY active Not Available Not Available Not Available duloxetine 40 mg capsule,hayley yed release TAKE 1 CAPSULE BY MOUTH AT BEDTIME active Not Available Not Available No t Available [employer] Respimat 1.25 mcg/actuatio n solution for inhalation active Not Available Not Available N ot Available [employer]axNOW COVID-19 Ag Self Test kit TEST DIRECTED TODAY active Not Available Not Available No t Available Vitals Date Recorded Respiratory rate Oxygen saturation Oxygen saturation in Arterial blood by Pulse oximetry Body height Heart rate Body temperature Body weight Systolic blood pressure Diastolic blood pressure Provider Name and Address Organization Details Last Updated DateTime 3 14 /min 99 % 99 % 157.48 cm 130 /min 98.4 [degF] 483687 g 128 mm[Hg] 84 mm[Hg] Not Available [facility] 3 17:29:44 Date Recorded Body temperature Body height Oxygen saturation Oxygen saturation in Arterial blood by Pulse oximetry Heart rate Body weight Respiratory rate Systolic blood pressure Diastolic blood pressure Provider Name and Address Organization Details Last Updated DateTime 3 97.8 [degF] 160.02 cm 95 % 95 % 49 /min 614391. 264 g 18 /min 118 mm[Hg] 73 mm[Hg] Not Available [email or web address] [employer] 3 14:03:02 Date Recorded Respiratory rate Heart rate Body height Oxygen saturation Oxygen saturation in Arterial blood by Pulse oximetry Body temperature Body weight Systolic blood pressure Diastolic blood pressure Provider Name and Address Organization Details Last Updated DateTime 3 20 /min 65 /min 162.56 cm 97 % 97 % 98.1 [degF] 343314. 6 g 128 mm[Hg] 84 mm[Hg] Not Available [facility] [employer] 3 15:25:16 Date Recorded Body weight Body height Oxygen saturation Oxygen saturation in Arterial blood by Pulse oximetry Body temperature Heart rate Respiratory rate Systolic blood pressure Diastolic blood pressure Provider Name and Address Organization Details Last Updated DateTime 3 882317. 08 g 160.02 cm 99 % 99 % 98.5 [degF] 81 /min 18 /min 132 mm[Hg] 85 mm[Hg] Not Available [facility] 3 19:55:06 Date Recorded Heart rate Body temperature Respiratory rate Oxygen saturation Oxygen saturation in Arterial blood by Pulse oximetry Systolic blood pressure Provider Name and Address Organization Details Last Updated DateTime 4 73 /min 98.8 [degF] 18 /min 97 % 97 % 130 mm[Hg] Not Available [facility] 4 21:21:50 Social History None recorded. Functional Status None recorded. Mental Status None recorded. Family History Nothing Reported. Medical History No medical history recorded. Gynecological HistoryNo gynecological history recorded. Obstetrics History GPAL:G 0 P 0 0 0 0 Past Encounters Encounter ID Performer Location Encounter Start Date Encounter Closed Date Diagnosis/Indication Diagnosis SNOMED-CT Code Diagnosis ICD10 Code Diagnosis Note [id number] Estella Rodriguez MD [facility] [address] [place] [phone] 12/11/2021 13:57:22 04/01/2022 15:51:42 Angina pectoris 886094394 I20.9 Pt with recent incidental diagnosis of AFlutter on digoxin and metoprolol called for episodes of tachycardi a (not captured on EKG today though likely c/w breakthrou gh AFlutter) and new exertional chest pain (not during episdoes of tachycardi a) c/w angina. Per pt has never undergone stress testing or LHC, has cardiology eval planned for December. EKG today w/ Q waves III and V1, no acute ST-T seg changes however give hx c/f unstable angina needs more urgent risk stratifica tion (HEART score 5 without consider of troponin, so rules in for urgent stress testing regardless of trop level). Pt agrees to ED trasport, expect called to [facility]. Full dose ASA given. I have reviewed and agree with the assessment and plan as documented by the condenser winder. I provided real time medical direction for this encounter and was immediatel y available to provide additional phone based assistance as needed. [id number] Niall Cardoso MD [facility] [address] [place] [phone] 02/27/2023 14:50:04 02/28/2023 11:15:47 Atrial flutter [id number] I48.92 [id number] Lester Villalobos MD [facility] [address] [place] [phone] 03/15/2023 17:29:32 03/16/2023 07:18:40 Paroxysmal atrial flutter [id number] I48.92 As noted, we were called to see this patient regarding concerns of feeling unwell. Evaluation in the field was performed by my condenser winder colleague, as noted above, I provided real-time direction and supervisio n for this visit. The evaluation revealed rapid wide-compl ex tachycardi a most c/w atrial flutter, no evidence of hemodynami c instabilit y, and chest discomfort that is more likely anginal than not. Impression :SVT, most likely atypical atrial flutter with concern for NSTE-ACS. Due to both the potential danger in setting of anginal symptoms and the difficult nature of AFl/MRT control, she requires ED referral. Plan:ED referral for monitoring and considerat ion of cardiovers ion. Primary care, considerch gopal-in call this week. Dispositio n:We discussed the situation and I recommende d referral to the emergency department . This was based on the potential for instabilit y and the need for complicate d treatment. [id number] [facility] [address] [place] [phone] 03/31/2023 14:02:46 04/01/2023 11:11:05 Dyspnea [id number] R06.00 copd exacerbati on-wheezin g improved with nebulizer- see note below patient is refusing ER care so I will put her on a short course of prednisone and increase her albuterol to 2 puffs every 4 hours while she is feeling short of breath. I requested CRC reach out to her post acute care nurse practitioner about getting her follow-up with her PCP EZE and getting home nebulizer. Chest pain [id number] R07. 9 Patient declines aspirin due to 20 mfg XARELTO DAILY - was told to avoid asa-advise d patient she has a history of heart disease, COPD and CHF. She is markedly bradycardi c on numerous meds and even after her dyspnea was improved with a nebulizer she was still having chest pressure. I advised that although her EKG looked better than her prior EKG/she could be having ACS and that she needed emergent work-up in the ER- advised work-up of ACS is beyond the scope of [facility] and I expressed my concern for her well-being . The medic and I spoke to her at length and she adamantly refused to go to the ER as she stated she had no one to care for her animals. We advised of the risks-verb alized understand ing of same-I reinforced low threshold for going to the ER and the need to follow-up with her PCP tomorrow [id number] Clovis Petersen MD Main - [address] [phone] 06/02/2023 15:25:14 06/02/2023 22:32:25 Low back pain [id number] M54.50 This 57-year-ol d female called Eunice ochoa of increased back pain. She has a history of chronic back pain but OTC medication s haven't been effective. I ordered Toradol 30 mg IM. She will follow-up with her PCP. The patient agreed with this plan. [id number] EDILSON ROACH MD Main - [facility] [phone] 07/17/2023 19:55:00 07/18/2023 17:23:41 Sore throat [id number] J02.9 Evaluation in the field was performed by my condenser winder colleague, as noted above, I provided real-time direction and supervisio n for this visit. The evaluation revealed 57 yo female with symptoms of severe sore throat, cough, chest and nasal congestion with chest tightness, no sputum production X 5 days,Pt complains of dry throat starting Thursday 07/12, then worsening headache, worsening sore throat starting Saturday 07/14 , and dry cough, laryngitis , chest tightness with cough, and choking on food x 3 days. Pt describes choking as follows: she is able to mechanical ly swallow food, but then gets a tickle in her throat, which results in coughing and bringing up food. Pt denies dizziness, sinus pain, runny nose, nasal congestion , sob, n/v/d, abd pain, fever. Denies inability to manage oral secretions . Exam pt not toxic looking. Troat exam with mild erythema and few petechia but no tonsillar swelling or exudate . Airway wide open . Flu/Covid/ Rapid strep negative . VSS Impression :Sore throat/ laringitis Plan:Covid / flu negativeRa pid strep negative. Will send group a strep culturePt with open airway so no concerns for tonsilar swelling/ edema so no need for Dexamethas onePt advised to drink tea with honey, gargle with salt and water, Tylenol for pain.Advis ed to avoid hard food for the next 24-48 and continue with liquid diet Primary care, consider__ _ Dispositio n: We discussed the diagnostic uncertaint y of home visits and the risk associated with this. In this case, the patient and I felt this to be an acceptable and reasonable amount of risk given the benefit of avoiding an ED visit. We discussed the need to seek care urgently/e mergently in the setting of any new or worsening serious symptoms, particular ly inability to manage her oral secretions , worsening pain swelling of her tonsils, CP, fever or any other concerns _ [id number] Ilana Reeves MD [facility] - [facility] [address] [place] [phone] 08/22/2023 21:21:46 08/23/2023 15:30:12 Strain of neck muscle [id number] S16.1[facility] Concerns Section Related Observation LastModified by Organization Detai ls LastModified Time None Recorded Concern Status LastModified by Organization Details LastModified Time None Recorded Advance Directives Directive None Recorded Payers Encounter Date Sequence Insurance Name Policy Number Policy Guillen Covered Member ID Guillen Member ID Guarantor Name 03/15/2023 1 [facility] DOS ON OR AFTER 2022 - DUAL ELIGIBLE - GROUP HOME OPTIONS AND ONE CARE (MEDICARE REPLACEMENT/ADV ANTAGE - HMO) Shruthi Orosco [id number] Shruthi Lyon Kwesi 03/31/2023 1 [facility] - DOS ON OR AFTER 2022 - DUAL ELIGIBLE - GROUP HOME OPTIONS AND ONE CARE (MEDICARE REPLACEMENT/ADV ANTAGE - HMO) Shruthi Orosco [id number] Shruthi Lyon Kwesi 06/02/2023 1 [facility] - DOS ON OR AFTER 2022 - DUAL ELIGIBLE - GROUP HOME OPTIONS AND ONE CARE (MEDICARE REPLACEMENT/ADV ANTAGE - HMO) Shruthi Orosco [id number] Shruthi Lyon Kwesi 07/17/2023 1 [email or web address] - DOS ON OR AFTER 2022 - DUAL ELIGIBLE - GROUP HOME OPTIONS AND ONE CARE (MEDICARE REPLACEMENT/ADV ANTAGE - HMO) Shruthi Orosco [id number] Shruthi Lyon Kwesi 08/22/2023 1 [employer] ALLIANCE - DOS ON OR AFTER 2022 - DUAL ELIGIBLE - GROUP HOME OPTIONS AND ONE CARE (MEDICARE REPLACEMENT/ADV ANTAGE - HMO) Shruthi Orosco [id number] Shruthi Orosco Notes Date Note Type Note Provider Name and Address Organization Details Recorded Time 03/15/2023 text/html [facility] Nursing Assessment: Reason For Request: Chest discomfort and anxiety Chief Complaints: Anxiety, Chest Pain, Headache, Shortness of Breath/Dyspnea, Weakness/Lethargy PMH: Heart Disease, CHF, COPD/Asthma, Hypertension Allergies: No Known Comments: Member calling in to place a referral, identified via /name. Member says she doesn't feel right in the head . She had a recent CHF diagnoses which is giving her anxiety. She was at the store and started having chest discomfort, mild sob upon standing, denies left arm or jaw pain, no acid reflux, nausea or vomiting, she has headaches and hot flashes at baseline but they more intense at present. She does also have BLE edema, she is compliant with her furosemide. Member states her BP is 128/89 and HR 132, she is question accuracy of her machine, member does also take metoprolol, diltiazem and amiodarone. Member would like to be evaluated. .................... .................... .................... .................... .................... .................... .................... . Burrer Machine Note From Chao Zhang: PT caox3 complains of intermittent chest pain, constant head ache , recent weakness, recent falls. Pt denies chest pain at this time. . Pt states headache feels like pressure and squeezing . Pt reports pain started two days ago. PT also complains of runny nose and nasal congestion. Pt reports she can feel her heart beating, which is not normal for her Pt pink warm and dry, secondary exam unremarkable. No edema but lower legs red and hard with cellulitis. COVID negative via rapid POC. advises pt to go to ED EZE. [facility] and [facility] arrives to transport pt to [place] ED. Care transferred to EMS. .................... .................... .................... .................... .................... .................... .................... . Disposition: Fulfilled Letser Villalobos MD [address] [facility],[address], [place], [address], RAJAN Flynn EUNICEJACKY 03/16/2023 15:03:34 03/31/2023 text/html HPI: PT has a little respiratory>wheezing >cough>pt has gotten better with congestion>Denies fever/chills>vitals were stable .................... .................... .................... .................... .................... .................... .................... . [facility] Nursing Assessment: Comments: [facility] calling in to place a referral, member identified via /name. Member with COPD and current heavy smoker. Member with cough, congestion, sob on exertion and audible wheezes. During visit LSD and sat around 92%, member does use a budesonide fomoteral inhaler. Denies fever/chills. Question COPD vs infection. Off note, member with chronic pain, on Xarelto, and question of med seeking behavior, and was asking if [facility] could prescribe pain medications. VNA has a call out to members PCP for a nebulizer machine. Member would like to be evaluated. .................... .................... .................... .................... .................... .................... .................... . Burrer Machine Note From Paradise Parker: Sent to a call for a pt complaining of wheezing and cough. [facility]-01 arrives on scene, pt is alert and oriented, airway is patent. Pt has been recently diagnosed with CHF, has had multiple hospitalizations since January, with atrial flutter/A-fib, and had a cardioversion on 03/24. Pt has been prescribed the following medications recently: Xarelto, Cardizem, Amiodarone, and Furosemide. Pt takes Symbicort twice daily and Albuterol inhaler 2-3 times daily. Pt used to have a nebulizer in the past, and VNA is following up with PCP about a new nebulizer. Pt states she thinks her Ablation is scheduled for apr 07. Pt complains of chronic back pain (entire back), sob w/exertion since January, mostly productive cough with clear mucus x 1 week, worsening sob and bilateral chest pressure since last night, and dizziness briefly once this morning when she sat down. Pt denies sinus pressure, sore throat, n/v/d, abd pain, fever, or loc. BP:118/73, P:49, RR:18, SpO2:95% RA, T:97.8; Head: unremarkable; Chest: no tenderness; Lung sounds: expiratory wheezing bilaterally; Abdomen: soft, non-tender, no distention; Upper extremities: unremarkable; Lower extremities: bilateral lower extremity edema; Skin: pink, warm, dry; Rapid covid test: neg; [facility]; [facility] consulted and pt is advised she needs to be transported to ED for a cardiac workup. Pt does not want to be transported to ED, but agrees to think about it. Pt states she doesn't want to go to ED because she has been 4 times, she doesn't have a ride home, and doesn't have anyone to watch her animals. [facility] orders Albuterol nebulized treatment. Pt reports feeling better after nebulized treatment, but chest pressure remains. Lung sounds: decreased expiratory wheezing; [facility] consulted and pt agrees to be transported to ED, but then refuses transport again. Risks of refusing transport for further eval/treatment explained. Pt states she understands risks and signs refusal signature. [facility] orders Prednisone 60mg PO, and sends script to pt's pharmacy for Prednisone. Prednisone 60mg PO administered without incident.Pt is advised to increase Albuterol inhaler to q4. Pt advised to follow up with PCP tomorrow, then pt states she has an appt with PCP on . Pt advised to still contact PCP tomorrow. Pt also advised to work on back up plan for animal care in case her condition changes/worsens. Red flags discussed. Pt has no further questions. .................... .................... .................... .................... .................... .................... .................... . Disposition: Fulfilled Rubi Mesa MD [address] [place] [address],[address], [place], [address], [employer] 03/31/2023 17:24:57 06/02/2023 text/html HPI: 57 yo F, history of back pain. Increased pain after cleaning the house several days ago. .................... .................... .................... .................... .................... .................... .................... . [facility] Nursing Assessment: Comments: VNA reports member with increased back pain x 2 days. Member with history of chronic back pain. Exacerbated after the cleaning house yesterday. Pain located to upper right back over scapula. Took Tylenol 3am today. Clovis Petersen MD [address] [facility],[address], [place], [id number], [facility] - [employer] 06/02/2023 15:28:28 07/17/2023 text/html HPI: 57 yo female with symptoms of severe sore throat, cough, chest and nasal congestion with chest tightness, no sputum production X 2 days, generally felling very sick, COVID - with at home antigen test. Pain 9-10, back and leg pain .................... .................... .................... .................... .................... .................... .................... . [facility] Nurse Triage Notes (Mian Lewis): Comments: Reviewed -Jnei COLBERT .................... .................... .................... .................... .................... .................... .................... . Burrer Machine Note From Paradise Parker: Sent to a call for a pt complaining of URI symptoms. [facility] arrives on scene, pt is alert and oriented, airway is patent. Pt complains of dry throat starting Thursday, then worsening headache, worsening sore throat starting Thursday, and dry cough, laryngitis, chest tightness with cough, and choking on food x 3 days. Pt describes choking as follows: she is able to mechanically swallow food, but then gets a tickle in her throat, which results in coughing and bringing up food. Pt denies dizziness, sinus pain, runny nose, nasal congestion, sob, n/v/d, abd pain, fever, or loc. BP:132/85, P:81, RR:18, SpO2:99% RA, T:98.5; Head: no sinus tenderness; Mouth: pettichae on roof of mouth; Throat: erythema, no edema or exudate; Abdomen: soft, non-tender, no distention; Back: unremarkable; Extremities: unremarkable; Skin: pink, warm, dry; Rapid covid test: neg; Rapid flu test: neg; Rapid strep test: neg; [facility] consulted and orders strep culture to be sent to [facility]. Pt advised to drink tea with honey, gargle with warm salt water, and give throat a rest by continuing with soup and fluids (avoiding solid foods) for 24 hrs. Red flags discussed. Pt has no further questions. [facility] Lab Orders: rapid flu (A+B): Performed rapid strep group A, throat: Performed streptococcus group A, culture, throat: Performed rapid strep group A, throat: Not Performed Comment: extra order .................... .................... .................... .................... .................... .................... .................... . Disposition: Jose ROACH MD [address] [place] [address],[address], [place], [address], [employer] 07/17/2023 21:30:25 08/22/2023 text/html CRC Nurse Triage Notes (Mian Lewis): Chief Complaints: Pain PMH: Heart Disease, CHF, COPD/Asthma, Hypertension Allergies: Unknown Comments: Clinical Case Manager verified the member's name//address and phone number - Education provided on the response time and the member was advised to monitor reported s/s and seek emergency treatment if needed. Member reports a hx of neck, upper back and left/right arm pain - Denies any new injuries or trauma - Denies fever - Member pain management. .................... .................... .................... .................... .................... .................... .................... . Burrer Machine Note From Marimar Mccormack: [facility] Aquiles Mccormack CCA1 dispatched to a [facility] for a 57 yof C/O neck and back pain. Upon arrival, the pt was ambulatory, HERNANDEZ X4, in no apparent distress. She stated that she had 4 herniated discs in her lumbar spine, 4 herniated discs in her cervical spine, and that she had multiple surgeries (including a TENS unit that had been removed). She stated that she had been using her flexoril and tylenol, which usually had good effect on her muscle spasms, but that she could not get the pain in her neck under control. She reported that she used xarelto and was advised not to use NSAIDs. The pt reported pain on both sides of her neck, radiating down into the top of her shoulders and down both arms. She reported pain/tingling patterns, which her PCP and specialist were aware of, and had not changed since she was assessed and treated by them. Equal bilateral administrative nursing supervisor strength, no arm drift, CMS present and equal in all extremities. No facial droop or confusion, skin warm pink and dry, no dizziness/weakness, SOB, CP, nausea/indigestion. Pt denied JEFFRIES, sore throat, cough, abd pain, vomiting, diarrhea, or urinary S/S. C consulted; many pain mgmt techniques were discussed, including: use of a soft collar, consistent use of her flexoril and tylenol, resting, positioning, heat, massage, and further diagnostic and medical interventions to discuss at her upcoming specialist appt. Pt was given 15 mg ketorolac IM, and verbalized understanding of the risks of using w/ anticoagulants. Red flags discussed. .................... .................... .................... .................... .................... .................... .................... . Disposition: Fulfilled Ilana Reeves MD [address] [place] [address],[address], [place], [phone], [employer] 08/22/2023 21:32:30 OBGyn Episode No OBEpisode recorded.
--- NOTE | 2024-09-10 02:03 | ED.GENADULT ---
HPI - General Adult General Chief complaint: General Medical Stated complaint: possible cellulitus Time Seen by Provider: 09/10/24 01:56 Source: patient Limitations: no limitations History of Present Illness ED Provider: Tamanna Jones PA-C HPI narrative: 58-year-old female with a history of morbid obesity, chronic venous insufficiency, dependent edema, hypertension, hyperlipidemia, diabetes, a flutter, COPD, heart failure with preserved ejection fraction, presents with bilateral lower extremity redness x2 days. New redness developed just below bilateral knees. Denies fever. Patient states her legs have been itching her, she has been scratching them, prior to the onset of the new redness. Related Data Home Medications ?Medication ?Instructions ?Recorded ?Confirmed albuterol sulfate 90 mcg/actuation 2 puff inhalation Q4-6H PRN 11/24/21 03/24/23 aerosol inhaler Respiratory Distress duloxetine 40 mg capsule,delayed 40 mg PO DAILY 11/24/21 03/24/23 release sprinkle duloxetine 60 mg capsule,delayed 60 mg PO DAILY 11/24/21 03/24/23 release penicillin V potassium 250 mg 250 mg PO BID 11/24/21 03/24/23 tablet nitrofurantoin 100 mg PO BID 12/31/21 03/24/23 monohydrate/macrocrystals 100 mg capsule ropinirole 0.5 mg tablet 0.5 mg PO TID 05/01/22 03/24/23 budesonide-formoterol HFA 80 2 puff inhalation BID 09/29/22 03/24/23 mcg-4.5 mcg/actuation aerosol inhaler (Symbicort) clonidine HCl 0.1 mg tablet 0.1 mg PO BID PRN Anxiety 02/05/23 03/24/23 cyclobenzaprine 5 mg tablet 5 mg PO BEDTIME PRN muscle spasm 02/05/23 03/24/23 ipratropium bromide 21 mcg (0.03 2 spray intranasal BID PRN Allergy 02/05/23 03/24/23 %) nasal spray Symptoms lamotrigine 200 mg tablet 200 mg PO BEDTIME 02/05/23 03/24/23 lamotrigine 25 mg tablet 50 mg PO BEDTIME 02/05/23 03/24/23 nicotine 21 mg/24 hr daily 21 mg transdermal DAILY PRN 02/19/23 03/24/23 transdermal patch Nicotine Cravings Previous Rx's ?Medication ?Instructions ?Recorded furosemide 40 mg tablet 40 mg PO DAILY #30 tabs 02/10/23 diltiazem HCl 240 mg 240 mg PO DAILY #30 caps 02/27/23 capsule,extended release 24 hr (Cardizem CD) amiodarone 200 mg tablet 200 mg PO DAILY #30 tabs 05/05/23 metoprolol succinate 50 mg 50 mg PO BID 30 days #60 tabs 05/05/23 tablet,extended release 24 hr oxycodone 5 mg tablet 5 mg PO BID PRN pain #10 tabs 09/04/23 oxycodone 5 mg tablet 5 mg PO Q6H PRN pain #14 tabs 09/09/23 cyclobenzaprine 10 mg tablet 10 mg PO TID PRN muscle spasm #14 11/19/23 tabs oxycodone 5 mg capsule 5 mg PO Q6H PRN pain #14 caps 11/19/23 dexamethasone 4 mg tablet 4 mg PO BID #6 tabs 01/02/24 oxycodone 5 mg tablet 5 mg PO Q6H PRN pain #12 tabs 01/02/24 oxycodone 5 mg tablet 5 mg PO BID PRN pain #7 tabs 01/09/24 tramadol 50 mg tablet 50 mg PO BID PRN pain #7 tabs 05/25/24 rosuvastatin 10 mg tablet 10 mg PO DAILY #30 tabs 06/27/24 loratadine 10 mg tablet 10 mg PO DAILY #30 tabs 07/29/24 rivaroxaban 20 mg tablet (Xarelto) 20 mg PO QPM #30 tabs 07/29/24 doxycycline monohydrate 100 mg 100 mg PO BID #19 caps 09/10/24 capsule Allergies Allergy/AdvReac Type Severity Reaction Status Date / Time adhesive Allergy Rash Verified 09/09/24 22:19 Review of Systems Review of Systems: Yes all other systems are reviewed and are negative Constitutional: Constitutional: Denies fatigue and Denies fever(s) Cardiovascular: Cardiovascular: Denies chest pain and Denies dyspnea Respiratory: Respiratory: Denies cough and Denies dyspnea Musculoskeletal: Musculoskeletal: Denies arthralgias and Denies joint swelling Integumentary/Breasts: Skin/Breast: Reports pruritus, Reports erythema and Reports skin swelling Endocrine: Endocrine: Denies fatigue PMFSH Past Medical History Attestation statement: The following information was validated with the patient. Medical History Right heart failure Atrial flutter History of cardioversion Leg edema Chronic respiratory failure requiring treatment with nocturnal BPAP by mask Morbid obesity Diabetes HLD (hyperlipidemia) HTN (hypertension) DVT of axillary vein, acute Arthritis Scoliosis Disc disorder of cervical region Disc disorder of lumbar region COPD (chronic obstructive pulmonary disease) Surgical History History of prolapse of bladder Hx of abdominoplasty History of partial hysterectomy Hx of esophagogastroduodenoscopy Hx of gastric bypass Status post knee replacement Previous back surgery Family History Family History Father Stroke Other Diabetes Social History Social History Household Members: Family Household Members Other:: daughter Housing: Apartment Do you presently have visiting nurse or other home services: Yes Alcohol intake: never Comment: PT REFUSING ALL SAFTEY AND FALL PRECAUTIONS Patient Tobacco Use Status: Current everyday Tobacco user Tobacco use type: Cigarette Cigarette Packs Per Day: 1.5 Cigarettes Per Day: 20 Years Smoked: 40 +/- Second Hand Smoke Exposure: No Advance Directives: No Advance Directives Information Provided: Yes Advance Directives Date on File: 11/24/21 Do you have a plan to hurt others: No Plan service: No Physical Exam ED Vital Signs: Vital Signs - 24 hr 09/09/24 22:17 Temperature 97.8 F Pulse Rate 85 Respiratory Rate 18 Blood Pressure 126/69 Pulse Oximetry 94 Oxygen Delivery Method Room Air BMI result Body Mass Index 44.9 Const Other: Alert Orientation/consciousness: patient oriented x3 Resp Effort & Inspection: normal respiratory effort Cardio Other: Normal peripheral perfusion, bilateral pitting edema Skin Other: Warm dry no rash Neuro General: patient oriented x3, no focal motor deficits and CN's II-XI intact bilaterally Extrem Other: Bilateral lower extremities are tense, hyperpigmented, with thickened dry scaly skin, weeping in some areas, with overlying erythema, with new erythema just inferior to bilateral knees Psych Other: Cooperative Medical Decision Making Medical Decision Making MDM Narrative: 58-year-old female with a history of morbid obesity, chronic venous insufficiency, dependent edema, hypertension, hyperlipidemia, diabetes, a flutter, COPD, right heart failure with preserved ejection fraction, presents with bilateral lower extremity redness x2 days. New redness developed just below bilateral knees. Denies fever. Patient states her legs have been itching her, she has been scratching them, prior to the onset of the new redness. Problem: Obesity, chronic venous insufficiency, diabetes History: Per patient I have considered the following differential diagnoses: Dependent edema, chronic venous insufficiency, cellulitis, DVT, heart failure exacerbation Plan: The patient's symptoms are chronic, she has maybe new redness over both legs, to err on the side of caution we will cover with doxycycline. To note, screening labs were obtained, she has no leukocytosis, the legs are not painful to touch, they are pruritic. They are equal in size, I do not feel she needs DVT studies. I do not think this is an exacerbation of her heart failure, she is not short of breath she has no chest pain she is not hypoxic, she is not overtly hypertensive. I have independently reviewed the following tests: Labs: No leukocytosis, not anemic, no electrolyte abnormalities noted Lab Data 09/09/24 22:42 09/09/24 22:42 Labs: Lab Results 09/09/24 Range/Units 22:42 WBC 8.1 (4.8-10.8) X10*3/uL RBC 5.07 (4.20-5.50) X10*6/uL Hgb 13.6 (12.0-16.0) g/dl Hct 42.7 (37.0-47.0) % MCV 84.2 (80.0-98.0) fL MCH 26.8 L (27.0-33.0) pg MCHC 31.9 (31.0-35.0) g/dl RDW 15.2 (11.0-16.0) % Plt Count 274 (160-400) X10*3/uL MPV 9.7 (9.4-12.3) fL Immature Gran % (Auto) 0.1 (0.0-0.4) % Neut % (Auto) 54.7 (45-73) % Lymph % (Auto) 29.5 (20-40) % [place] % (Auto) 8.9 (2-11) % Eos % (Auto) 6.2 H (0-4) % Baso % (Auto) 0.6 (0-2) % Lymph # (Auto) 2.4 (1.2-4.9) X10*3/uL [place] # (Auto) 0.7 (0.1-1.2) X10*3/uL Eos # (Auto) 0.5 H (0.0-0.4) X10*3/uL Baso # (Auto) 0.1 (0.0-0.2) X10*3/uL Abs Immat Gran (auto) 0.01 (0.00-0.03) X10*3/uL Absolute Neuts (auto) 4.4 (2.0-8.3) x10*3/uL Absolute Nucleated RBC 0.000 (0.0-0.012) X10*3/uL Nucleated RBC % (auto) 0.0 (0.0-0.2) /100WBC Sodium 138 (135-145) mmol/L Potassium 4.1 (3.3-5.1) mmol/L Chloride 104 (96-108) mmol/L Carbon Dioxide 24 (22-29) mmol/L Anion Gap 14 (12-20) BUN 13 (9-16) mg/dL Creatinine 0.75 (0.5-1.4) mg/dL Estim Creat Clear Calc 97.5 Estimated GFR > 60 Random Glucose 160 H (60-115) mg/dL Calcium 9.5 (8.4-10.2) mg/dL Total Bilirubin 0.4 (0.0-1.0) mg/dL AST 32 H (5-31) U/L ALT 24 (0-31) U/L Alkaline Phosphatase 112 (39-117) U/L B-Natriuretic Peptide 112 H (<100) pg/mL Total Protein 7.7 (6.5-8.0) g/dL Albumin 3.8 (3.5-5.0) g/dL Discharge Plan Discharge Clinical Impression: Cellulitis, Chronic venous insufficiency Patient Disposition: Home, Self-Care Instructions: Cellulitis (ED), Peripheral Vascular Disease (ED), Lymphedema (ED), Venous Insufficiency (DC) Additional Instructions: All of your labs were normal. The appearance of your legs is consistent with your chronic venous insufficiency. Given your report of new redness, we will cover you for suspect cellulitis. Take the doxycycline as directed. You need to follow up with your primary care provider next week. Be sure to wear compression stockings when you're ambulating. When you're resting, elevate your legs above the heart. Exercise and weight loss are both instrumental in helping with your circulation. Prescriptions: New doxycycline monohydrate 100 mg capsule 100 mg PO BID Qty: 19 0RF No Action amiodarone 200 mg tablet 200 mg PO DAILY Qty: 30 3RF metoprolol succinate 50 mg tablet extended release 24 hr 50 mg PO BID 30 Days Qty: 60 3RF Protocol: Hold for SBP/HR < HOLD for SBP < : 90 HOLD for HR < : 60 Rx Instructions: Replaces prior dose of 75 mg twice daily rosuvastatin 10 mg tablet 10 mg PO DAILY Qty: 30 0RF Rx Instructions: Must call and schedule a follow up appt. loratadine 10 mg tablet 10 mg PO DAILY Qty: 30 2RF Rx Instructions: Please call and schedule a follow up appt. Xarelto 20 mg tablet 20 mg PO QPM Qty: 30 2RF Rx Instructions: Please call and make a follow up appt. penicillin V potassium 250 mg Tablet 250 mg PO BID albuterol sulfate 90 mcg/actuation Hfa Aerosol Inhaler 2 puff INHALATION Q4-6H PRN (Reason: Respiratory Distress) duloxetine 60 mg Capsule,Delayed Release(Dr/Ec) 60 mg PO DAILY Rx Instructions: TAKE WITH 40MG duloxetine 40 mg Capsule, Delayed Rel Sprinkle 40 mg PO DAILY Rx Instructions: TAKE WITH 60MG nitrofurantoin monohyd/m-cryst 100 mg capsule 100 mg PO BID lamotrigine 200 mg tablet 200 mg PO BEDTIME Rx Instructions: TAKE WITH 50MG lamotrigine 25 mg tablet 50 mg PO BEDTIME Rx Instructions: TAKE WITH 200MG clonidine HCl 0.1 mg tablet 0.1 mg PO BID PRN (Reason: Anxiety) ipratropium bromide 21 mcg (0.03 %) spray,non-aerosol 2 spray intranasal BID PRN (Reason: Allergy Symptoms) cyclobenzaprine 5 mg tablet 5 mg PO BEDTIME PRN (Reason: muscle spasm) furosemide 40 mg tablet 40 mg PO DAILY Qty: 30 0RF nicotine 21 mg/24 hr patch 24 hour 21 mg transdermal DAILY PRN (Reason: Nicotine Cravings) oxycodone 5 mg tablet 5 mg PO BID PRN (Reason: pain) Qty: 10 0RF Rx Instructions: Partial Fill upon patient request. oxycodone 5 mg tablet 5 mg PO Q6H PRN (Reason: pain) Qty: 12 0RF Rx Instructions: Partial Fill upon patient request. dexamethasone 4 mg tablet 4 mg PO BID Qty: 6 0RF diltiazem HCl [Cardizem CD] 240 mg capsule,extended release 24hr 240 mg PO DAILY Qty: 30 0RF oxycodone 5 mg tablet 5 mg PO Q6H PRN (Reason: pain) Qty: 14 0RF Rx Instructions: Partial Fill upon patient request. oxycodone 5 mg capsule 5 mg PO Q6H PRN (Reason: pain) Qty: 14 0RF Rx Instructions: Partial Fill upon patient request. cyclobenzaprine 10 mg tablet 10 mg PO TID PRN (Reason: muscle spasm) Qty: 14 0RF oxycodone 5 mg tablet 5 mg PO BID PRN (Reason: pain) Qty: 7 0RF Rx Instructions: Partial Fill upon patient request. tramadol 50 mg tablet 50 mg PO BID PRN (Reason: pain) Qty: 7 0RF ropinirole 0.5 mg tablet 0.5 mg PO TID budesonide-formoterol [Symbicort] 80-4.5 mcg/actuation HFA aerosol inhaler 2 puff inhalation BID Print Language: Pakistani
[2024-09-10] MEDS: Doxycycline Monohydrate 100 MG CAPSULE PO (02:37)
[2024-09-10 02:42] VITALS: BP 147/83; PULSE 90; RESP 17; TEMP 37.2; O2SAT 95
[2024-09-10 02:43] VITALS: BP 147/83; PULSE 90; RESP 17; TEMP 37.2; O2SAT 95
== END 2024-09-10 02:44 | disposition home or self-care (01) ==
PROVIDERS: Emergency Provider Emergency Medicine; PCP Family Medicine
DX: L03.115 Cellulitis of right lower limb (principal); L03.116 Cellulitis of left lower limb; I87.2 Venous insufficiency (chronic) (peripheral); F17.210 Nicotine dependence, cigarettes, uncomplicated; Z79.899 Other long term (current) drug therapy
CPT/HCPCS: 36415; 80053; 83880; 85025; 99283; 99284

== ENCOUNTER 2024-11-26 23:38 | Observation (INO) | payer OTHER, SELFPAY ==
--- NOTE | ~2024-11-26 | XR_ITS ---
CLINICAL HISTORY: sob, hx copd Exam: AP portable chest x-ray. Comparison: March 15, 2023. Findings: Lungs are well inflated. Cardiac silhouette is mildly enlarged. Central interstitial markings are prominent. No dense area of consolidation. No pleural effusion pneumothorax. Spinal cord stimulator device projects over the midthoracic spine. Impression: Perihilar interstitial prominence. This can be seen with bronchitis/bronchiolitis, edema, or interstitial lung disease. This document has been electronically signed by: Rodrigue Fierro MD on 11/27/2024 00:16:09
[2024-11-26 23:47] VITALS: BP 112/51; BP 134/66; PULSE 71; PULSE 72; RESP 18; TEMP 36.5; O2SAT 93; O2SAT 95; BMI 45.5
[2024-11-26] MEDS: Albuterol Sulfate 2.5 MG, Albuterol/Iprat 2.5/0.5MG 3 ML 3 ML INHALE (23:54)
--- NOTE | 2024-11-26 23:54 | ECG_ITS ---
Test Reason : DYSPNEA Blood Pressure : */* mmHG Vent. Rate : 77 BPM Atrial Rate : 77 BPM P-R Int : 174 ms QRS Dur : 82 ms QT Int : 410 ms P-R-T Axes : 59 25 34 degrees QTcB Int : 463 ms Normal sinus rhythm Normal ECG When compared with ECG of 24-Mar-2023 13:05, No significant change was found Referred By: Yessi Bourgeois Electronically Signed By: TERESO NICHOLAS
--- NOTE | 2024-11-26 23:55 | ED_ITS ---
HPI - SOB/Dyspnea General Chief Complaint: Dyspnea Stated Complaint: Diff breathing x3 days hx of COPD Time Seen by Provider: 11/26/24 23:43 Source: patient and EMS Mode of arrival: EMS Limitations: no limitations History of Present Illness ED Provider: Dr. Yessi Bourgeois HPI Narrative: Patient comes to the emergency room complaining of shortness of breath. According to the patient, she has been giving herself nebulization treatments at home without any success. Patient states that her daughter and son-in-law recently had an upper respiratory infection. Patient aware that she has COPD, uses BiPAP at night and oxygen. Denies any chest pain. Patient admits that she still smokes. Patient denies any fever chills. Patient states that she has been coughing more than usual thick productive sputum. Denies any lower extremity pain or swelling. When EMS arrived, patient's oxygen saturation was 93%. She was giving a nebulization treatment which states that it helped a lot with her breathing Related Data Home Medications ?Medication ?Instructions ?Recorded ?Confirmed albuterol sulfate 90 mcg/actuation 2 puff inhalation Q4-6H PRN 11/24/21 03/24/23 aerosol inhaler Respiratory Distress duloxetine 40 mg capsule,delayed 40 mg PO DAILY 11/24/21 03/24/23 release sprinkle duloxetine 60 mg capsule,delayed 60 mg PO DAILY 11/24/21 03/24/23 release penicillin V potassium 250 mg 250 mg PO BID 11/24/21 03/24/23 tablet nitrofurantoin 100 mg PO BID 12/31/21 03/24/23 monohydrate/macrocrystals 100 mg capsule ropinirole 0.5 mg tablet 0.5 mg PO TID 05/01/22 03/24/23 budesonide-formoterol HFA 80 2 puff inhalation BID 09/29/22 03/24/23 mcg-4.5 mcg/actuation aerosol inhaler (Symbicort) clonidine HCl 0.1 mg tablet 0.1 mg PO BID PRN Anxiety 02/05/23 03/24/23 cyclobenzaprine 5 mg tablet 5 mg PO BEDTIME PRN muscle spasm 02/05/23 03/24/23 ipratropium bromide 21 mcg (0.03 2 spray intranasal BID PRN Allergy 02/05/23 03/24/23 %) nasal spray Symptoms lamotrigine 200 mg tablet 200 mg PO BEDTIME 02/05/23 03/24/23 lamotrigine 25 mg tablet 50 mg PO BEDTIME 02/05/23 03/24/23 nicotine 21 mg/24 hr daily 21 mg transdermal DAILY PRN 02/19/23 03/24/23 transdermal patch Nicotine Cravings Previous Rx's ?Medication ?Instructions ?Recorded furosemide 40 mg tablet 40 mg PO DAILY #30 tabs 02/10/23 diltiazem HCl 240 mg 240 mg PO DAILY #30 caps 02/27/23 capsule,extended release 24 hr (Cardizem CD) amiodarone 200 mg tablet 200 mg PO DAILY #30 tabs 05/05/23 metoprolol succinate 50 mg 50 mg PO BID 30 days #60 tabs 05/05/23 tablet,extended release 24 hr oxycodone 5 mg tablet 5 mg PO BID PRN pain #10 tabs 09/04/23 oxycodone 5 mg tablet 5 mg PO Q6H PRN pain #14 tabs 09/09/23 cyclobenzaprine 10 mg tablet 10 mg PO TID PRN muscle spasm #14 11/19/23 tabs oxycodone 5 mg capsule 5 mg PO Q6H PRN pain #14 caps 11/19/23 dexamethasone 4 mg tablet 4 mg PO BID #6 tabs 01/02/24 oxycodone 5 mg tablet 5 mg PO Q6H PRN pain #12 tabs 01/02/24 oxycodone 5 mg tablet 5 mg PO BID PRN pain #7 tabs 01/09/24 tramadol 50 mg tablet 50 mg PO BID PRN pain #7 tabs 05/25/24 rosuvastatin 10 mg tablet 10 mg PO DAILY #30 tabs 06/27/24 doxycycline monohydrate 100 mg 100 mg PO BID #19 caps 09/10/24 capsule loratadine 10 mg tablet 10 mg PO DAILY #90 tabs 10/19/24 rivaroxaban 20 mg tablet (Xarelto) 20 mg PO QPM #30 tabs 10/19/24 Allergies Allergy/AdvReac Type Severity Reaction Status Date / Time adhesive Allergy Rash Verified 11/26/24 23:54 Review of Systems 2 Review of Systems: Constitutional : No Weight loss, No Fever, No Chills, No Night Sweats, No Fatigue, No Malaise ENT/Mouth : No Hearing loss, No Ear Pain, No Nasal Congestion, No Sinus Pain, No Hoarseness, No sore throat, No Rhinorrhea, No Swallowing Difficulty Eyes: No Eye Pain, No Swelling, No Redness, No Foreign Body, No Discharge, No Vision Changes Cardiovascular : No Chest Pain, No SOB, No Dyspnea on Exertion, No Orthopnea, No Edema, No Palpitations Respiratory : Complaining of productive cough, wheezing and shortness of breath Gastrointestinal : No Nausea, No Vomiting, No Diarrhea, No Constipation, No abdominal Pain, No Hematochezia, No Melena Genitourinary : no irregular bleeding, No Dysuria, No Urinary Frequency, No Hematuria, No Urinary Incontinence, No Urgency, No Flank Pain, No Urinary Flow Changes, No Hesitancy Musculoskeletal : No joint pain, No Myalgias, No Joint Swelling Skin : No Skin Lesions, No rash Neuro : No Weakness, No Numbness, No Paresthesias, No Loss of Consciousness, No Dizziness, No Headache Psych : No Anxiety/Panic, No Depression, No SI/HI/AH/VH, No Social Issues, Heme/Lymph: No Bruising, No Bleeding,No Lymphadenopathy Endocrine : No Polyuria, No Polydipsia, No Temperature Intolerance PMFSH Past Medical History Medical History Right heart failure Atrial flutter History of cardioversion Leg edema Chronic respiratory failure requiring treatment with nocturnal BPAP by mask Morbid obesity Diabetes HLD (hyperlipidemia) HTN (hypertension) DVT of axillary vein, acute Arthritis Scoliosis Disc disorder of cervical region Disc disorder of lumbar region COPD (chronic obstructive pulmonary disease) Surgical History History of prolapse of bladder Hx of abdominoplasty History of partial hysterectomy Hx of esophagogastroduodenoscopy Hx of gastric bypass Status post knee replacement Previous back surgery Family History Family History Father Stroke Other Diabetes Social History Social History Household Members: Family Household Members Other:: daughter Housing: Apartment Do you presently have visiting nurse or other home services: Yes Alcohol intake: never Comment: PT REFUSING ALL SAFTEY AND FALL PRECAUTIONS Patient Tobacco Use Status: Current everyday Tobacco user Tobacco use type: Cigarette Cigarette Packs Per Day: 1.5 Cigarettes Per Day: 20 Years Smoked: 40 +/- Second Hand Smoke Exposure: No Advance Directives Date on File: 11/24/21 service: No Physical Exam 2 Vital Signs: Vital Signs: Last Vital Signs Temp 97.7 F 11/26/24 23:47 Pulse 73 11/27/24 01:00 Resp 28 H 11/27/24 01:00 BP 112/51 L 11/26/24 23:47 Pulse Ox 95 11/26/24 23:47 O2 Del Method Room Air 11/26/24 23:47 BMI result Body Mass Index 45.5 Const: Other: Appearance: Alert. Oriented X3. No acute distress. Eyes: Pupils equal, round and reactive to light. ENT: Pharynx normal. Neck: Normal inspection. Neck supple. No lymph nodes noted. No crepitus CVS: Normal heart rate and rhythm. Pulses normal. Normal S1 and S2 Respiratory: No respiratory distress. Speaking in full sentences, 92% on room air, mild bilateral wheezing, no rales or crackles Abdomen: Soft and nontender. No rigidity. No distention. Skin: Skin warm and dry. Normal skin color. Normal skin turgor. Extremities: No lower extremity edema. No Lacerations. No Rash chronic venous stasis in both lower extremities Neuro: Oriented X 3. No motor deficit. No sensory deficit. Moving all extremities. No slurred speech. CN 2 through 12 grossly intact Psych: calm, cooperative, normal affect Course Course Course Narrative: Patient wheezing a bit, receiving nebulization treatments, Solu-Medrol and magnesium. Given patient's past medical history, patient empirically being treated with IV fluids, a ceftriaxone and azithromycin All of patient's labs are pending Medications Administered Discontinued Medications Generic Name Dose Route Start Last Admin Trade Name Freq PRN Reason Stop Dose Admin Ceftriaxone Sodium 1 gm 11/26/24 23:49 11/27/24 00:49 Ceftriaxone Sodium 1 Gm Vial IVPUSH 11/26/24 23:50 1 gm ONCE ONE Administration Albuterol Sulfate 2.5 mg/ 0 mg 11/26/24 23:51 11/26/24 23:54 Albuterol/Ipratropium 3 ml INHALE 11/26/24 23:52 5 dose ONCE ONE Administration Albuterol Sulfate 2.5 mg/ 0 mg 11/27/24 00:55 11/27/24 00:58 Albuterol/Ipratropium 3 ml INHALE 11/27/24 00:56 5 dose ONCE ONE Administration Magnesium Sulfate 2 gm in 50 mls @ 25 mls/hr 11/26/24 23:49 11/27/24 00:31 Magnesium Sulfate/H2o IV 11/27/24 01:48 25 mls/hr ONCE ONE Administration Azithromycin 500 mg/ Sodium 250 mls @ 125 mls/hr 11/26/24 23:49 11/27/24 00:46 Chloride IV 11/27/24 01:48 125 mls/hr ONCE ONE Administration Sodium Chloride 1,000 mls @ 999 mls/hr 11/26/24 23:53 11/27/24 00:36 Ns IVCONT 11/27/24 00:53 999 mls/hr .Q1H1M ONE Administration Methylprednisolone Sodium Succinate 125 mg 11/26/24 23:49 11/27/24 00:32 Methylprednisolone Sod Succ 125 Mg/2 Ml Vial IVPUSH 11/26/24 23:50 125 mg ONCE ONE Administration Medical Decision Making Medical Decision Making [facility] Narrative: We attempted to get the patient to ambulate to the bathroom, patient started wheezing. My interpretation of labs: No significant abnormality in patient's hematology and chemistry, no significant abnormality in patient's blood gases, serology negative for influenza RSV and COVID X-ray shows interstitial perihilar prominence, bronchitis versus bronchiolitis. Patient's oxygen saturation only drops at bedtime. However, patient is known to use BiPAP at bedtime with oxygen. Despite multiple nebulization treatments, Patient's seems to be having trouble breathing even though her oxygen does not drop. I discussed the patient with Dr. Welch, patient being admitted Patient's vitals stable, blood pressure 112/51, heart rate 73, oxygen saturation 95% on room air, temperature 97.7 degrees, sepsis not suspected. Of note, patient will be on BiPAP because patient uses it at bedtime every night Differential Diagnosis Differential Diagnoses: The differential diagnosis associated with the presentation includes (Chronic lung disease, pneumonia) Admission/Observation Consideration of admission/observation: Escalation of care including admission/observation considered Consult Healthcare Provider Management of the patient was discussed with: Hospitalist Lab Data [facility] Lab Attestation statement: I reviewed the patient's lab results. 11/27/24 00:10 11/27/24 00:10 Labs: Lab Results 11/27/24 11/27/24 11/27/24 Range/Units 00:09 00:10 00:15 WBC 6.5 (4.8-10.8) X10*3/uL RBC 4.60 (4.20-5.50) X10*6/uL Hgb 11.9 L (12.0-16.0) g/dl Hct 37.1 (37.0-47.0) % MCV 80.7 (80.0-98.0) fL MCH 25.9 L (27.0-33.0) pg MCHC 32.1 (31.0-35.0) g/dl RDW 17.1 H (11.0-16.0) % Plt Count 237 (160-400) X10*3/uL MPV 9.4 (9.4-12.3) fL Immature Gran % (Auto) 0.3 (0.0-0.4) % Neut % (Auto) 59.4 (45-73) % Lymph % (Auto) 28.4 (20-40) % [place] % (Auto) 9.2 (2-11) % Eos % (Auto) 2.2 (0-4) % Baso % (Auto) 0.5 (0-2) % Lymph # (Auto) 1.9 (1.2-4.9) X10*3/uL [place] # (Auto) 0.6 (0.1-1.2) X10*3/uL Eos # (Auto) 0.1 (0.0-0.4) X10*3/uL Baso # (Auto) 0.0 (0.0-0.2) X10*3/uL Abs Immat Gran (auto) 0.02 (0.00-0.03) X10*3/uL Absolute Neuts (auto) 3.9 (2.0-8.3) x10*3/uL Absolute Nucleated RBC 0.000 (0.0-0.012) X10*3/uL Nucleated RBC % (auto) 0.0 (0.0-0.2) /100WBC VBG pH 7.45 H (7.32-7.43) VBG pCO2 44 mmHg VBG pO2 41 mmHg VBG HCO3 30 H (22-26) mmol/L VBG O2 Saturation 69.0 % VBG Base Excess 6.3 mmol/L Sodium 141 (135-145) mmol/L Potassium 3.8 (3.3-5.1) mmol/L Chloride 105 (96-108) mmol/L Carbon Dioxide 26 (22-29) mmol/L Anion Gap 14 (12-20) BUN 9 (9-16) mg/dL Creatinine 0.66 (0.5-1.4) mg/dL Estim Creat Clear Calc 111.6 Estimated GFR > 60 Random Glucose 132 H (60-115) mg/dL Lactic Acid 1.8 (0.5-2.0) mmol/L Calcium 9.0 (8.4-10.2) mg/dL Total Bilirubin 0.5 (0.0-1.0) mg/dL Direct Bilirubin 0.2 (0.0-0.5) mg/dL AST 31 (5-31) U/L ALT 19 (0-31) U/L Alkaline Phosphatase 111 (39-117) U/L Troponin I High Sens < 2.7 (<3.5-17.0) ng/L B-Natriuretic Peptide 277 H (<100) pg/mL Total Protein 7.2 (6.5-8.0) g/dL Albumin 3.6 (3.5-5.0) g/dL Influenza Type A (PCR) NEGATIVE (Negative) Influenza Type B (PCR) NEGATIVE (Negative) RSV RNA Qual (PCR) NEGATIVE (Negative) SARS-CoV-2 RNA (RT-PCR) NEGATIVE (Negative) Independent Interpretation I performed an independent interpretation of an: Plain X-Ray Radiology Impression Discussion of test interpretation with radiology: I have reviewed the radiologist's reading. Radiologist Impression: Lungs are well inflated. Cardiac silhouette is mildly enlarged. Central interstitial markings are prominent. No dense area of consolidation. No pleural effusion pneumothorax. Spinal cord stimulator device projects over the midthoracic spine. Impression: Perihilar interstitial prominence. This can be seen with bronchitis/bronchiolitis, edema, or interstitial lung disease. Critical Care Time Critical Care Time Critical Care Time: Yes Total Critical Care Time: 60 Attestation: I have personally provided critical care time. Time includes review of lab data, radiology results, discussion with consultants, and monitoring for potential decompensation. Intervention performed as documented. Discharge Plan Discharge Clinical Impression: Chronic lung disease Patient Disposition: Admitted As Inpatient Prescriptions: No Action amiodarone 200 mg tablet 200 mg PO DAILY Qty: 30 3RF metoprolol succinate 50 mg tablet extended release 24 hr 50 mg PO BID 30 Days Qty: 60 3RF Protocol: Hold for SBP/HR < HOLD for SBP < : 90 HOLD for HR < : 60 Rx Instructions: Replaces prior dose of 75 mg twice daily rosuvastatin 10 mg tablet 10 mg PO DAILY Qty: 30 0RF Rx Instructions: Must call and schedule a follow up appt. loratadine 10 mg tablet 10 mg PO DAILY Qty: 90 0RF Xarelto 20 mg tablet 20 mg PO QPM Qty: 30 2RF penicillin V potassium 250 mg Tablet 250 mg PO BID albuterol sulfate 90 mcg/actuation Hfa Aerosol Inhaler 2 puff INHALATION Q4-6H PRN (Reason: Respiratory Distress) duloxetine 60 mg Capsule,Delayed Release(Dr/Ec) 60 mg PO DAILY Rx Instructions: TAKE WITH 40MG duloxetine 40 mg Capsule, Delayed Rel Sprinkle 40 mg PO DAILY Rx Instructions: TAKE WITH 60MG nitrofurantoin monohyd/m-cryst 100 mg capsule 100 mg PO BID lamotrigine 200 mg tablet 200 mg PO BEDTIME Rx Instructions: TAKE WITH 50MG lamotrigine 25 mg tablet 50 mg PO BEDTIME Rx Instructions: TAKE WITH 200MG clonidine HCl 0.1 mg tablet 0.1 mg PO BID PRN (Reason: Anxiety) ipratropium bromide 21 mcg (0.03 %) spray,non-aerosol 2 spray intranasal BID PRN (Reason: Allergy Symptoms) cyclobenzaprine 5 mg tablet 5 mg PO BEDTIME PRN (Reason: muscle spasm) furosemide 40 mg tablet 40 mg PO DAILY Qty: 30 0RF nicotine 21 mg/24 hr patch 24 hour 21 mg transdermal DAILY PRN (Reason: Nicotine Cravings) oxycodone 5 mg tablet 5 mg PO BID PRN (Reason: pain) Qty: 10 0RF Rx Instructions: Partial Fill upon patient request. oxycodone 5 mg tablet 5 mg PO Q6H PRN (Reason: pain) Qty: 12 0RF Rx Instructions: Partial Fill upon patient request. dexamethasone 4 mg tablet 4 mg PO BID Qty: 6 0RF diltiazem HCl [Cardizem CD] 240 mg capsule,extended release 24hr 240 mg PO DAILY Qty: 30 0RF oxycodone 5 mg tablet 5 mg PO Q6H PRN (Reason: pain) Qty: 14 0RF Rx Instructions: Partial Fill upon patient request. oxycodone 5 mg capsule 5 mg PO Q6H PRN (Reason: pain) Qty: 14 0RF Rx Instructions: Partial Fill upon patient request. cyclobenzaprine 10 mg tablet 10 mg PO TID PRN (Reason: muscle spasm) Qty: 14 0RF oxycodone 5 mg tablet 5 mg PO BID PRN (Reason: pain) Qty: 7 0RF Rx Instructions: Partial Fill upon patient request. tramadol 50 mg tablet 50 mg PO BID PRN (Reason: pain) Qty: 7 0RF doxycycline monohydrate 100 mg capsule 100 mg PO BID Qty: 19 0RF ropinirole 0.5 mg tablet 0.5 mg PO TID budesonide-formoterol [Symbicort] 80-4.5 mcg/actuation HFA aerosol inhaler 2 puff inhalation BID Print Language: Greek
[2024-11-26 23:56] VITALS: PULSE 69; RESP 20; O2SAT 93
[2024-11-27] VITALS (13 sets, daily range): BP systolic 101–122; BP diastolic 50–77; PULSE 71–98; RESP 17–28; TEMP 36.3–37.1; O2SAT 90–98; BMI 43.5
[2024-11-27 00:18] LABS: MANUAL DIFF FLAG NO
[2024-11-27 00:19] LABS: VBG Base Excess 6.3 mmol/L; VBG HCO3 30 mmol/L (22-26); VBG pCO2 44 mmHg; VBG pH 7.45 (7.32-7.43); VBG pO2 41 mmHg
[2024-11-27 00:20] LABS: Basophils Percent Auto 0.5 % (0-2); Eosinophils Absolute Auto 0.1 X10*3/uL (0.0-0.4); Eosinophils Percent Auto 2.2 % (0-4); Hematocrit 37.1 % (37.0-47.0); Hemoglobin 11.9 g/dl (12.0-16.0); Imm Gran Abs Auto 0.02 X10*3/uL (0.00-0.03); Imm Gran Pct Auto 0.3 % (0.0-0.4); Lymphocytes Absolute Auto 1.9 X10*3/uL (1.2-4.9); Lymphocytes Percent Auto 28.4 % (20-40); Mean Corpuscular HGB Conc 32.1 g/dl (31.0-35.0); Mean Corpuscular Hemoglobin 25.9 pg (27.0-33.0); Mean Corpuscular Volume 80.7 fL (80.0-98.0); Mean Platelet Volume 9.4 fL (9.4-12.3); Monocytes Absolute Auto 0.6 X10*3/uL (0.1-1.2); Monocytes Percent Auto 9.2 % (2-11); Neutrophils Absolute Auto 3.9 x10*3/uL (2.0-8.3); Neutrophils Percent Auto 59.4 % (45-73); Platelet Count 237 X10*3/uL (160-400); Red Cell Distribution Width 17.1 % (11.0-16.0); White Blood Count 6.5 X10*3/uL (4.8-10.8)
[2024-11-27] MEDS: Magnesium Sulfate/H2O 2 GM/50 ML PIGGYBACK IV (00:31)
[2024-11-27] MEDS: methylPREDNISolone Sod Succ 125 MG/2 ML VIAL IVPUSH (00:32)
[2024-11-27] MEDS: 0.9 % Sodium Chloride 1,000 ML 999 ML IVCONT (00:36)
[2024-11-27 00:41] LABS: Lactic Acid 1.8 mmol/L (0.5-2.0)
[2024-11-27 00:44] LABS: B Type Natriuretic Peptide 277 pg/mL (<100)
[2024-11-27 00:45] LABS: Troponin-I High Sensitivity < 2.7 ng/L (<3.5-17.0)
[2024-11-27] MEDS: Azithromycin 500 MG in 0.9 % Sodium Chloride 250 ML 125 MG IV (00:46)
[2024-11-27 00:48] LABS: Alanine Aminotransferase 19 U/L (0-31); Albumin Level 3.6 g/dL (3.5-5.0); Alkaline Phosphatase 111 U/L (39-117); Anion Gap 14 (12-20); Aspartate Amino Transferase 31 U/L (5-31); Bilirubin Direct 0.2 mg/dL (0.0-0.5); Bilirubin Total 0.5 mg/dL (0.0-1.0); Blood Urea Nitrogen 9 mg/dL (9-16); Carbon Dioxide 26 mmol/L (22-29); Chloride 105 mmol/L (96-108); Creatinine Clr Calc Pharmacy 111.6; Estimated Glomerular Filt Rate > 60; Glucose Random 132 mg/dL (60-115); Potassium 3.8 mmol/L (3.3-5.1); Sodium 141 mmol/L (135-145); Total Protein 7.2 g/dL (6.5-8.0)
[2024-11-27] MEDS: cefTRIAXone sodium 1 GM VIAL IVPUSH (00:49)
[2024-11-27] MEDS: Albuterol Sulfate 2.5 MG, Albuterol/Iprat 2.5/0.5MG 3 ML 3 ML INHALE (00:58)
[2024-11-27 01:02] LABS: Influenza A PCR NEGATIVE (Negative); Influenza B PCR NEGATIVE (Negative); Resp Syncy Virus RNA Qual PCR NEGATIVE (Negative); SARS COV2 PCR INHOUSE NEGATIVE (Negative)
[2024-11-27 01:08] LABS: Venous Blood Gas Refer to POC result
--- NOTE | 2024-11-27 02:07 | P.HPHOSP_ITS ---
History of Present Illness Date of Service: 11/27/24 Chief Complaint: Dyspnea This is a 58-year-old female with pertinent history of atrial flutter on Xarelto, chronic hypoxemic respiratory failure due to COPD on nocturnal BiPAP at baseline, congestive heart failure with preserved ejection fraction, history of DVT on anticoagulation, mixed hyperlipidemia, hypertension, chronic back pain, ziw-kyyqawv-lbvhuxalh type 2 diabetes mellitus, mood disorder, tobacco use disorder, obesity who presents to the emergency department for evaluation of dyspnea. Patient states her symptoms started 3 days prior to presentation. She has been having dyspnea which is worse with exertion. No orthopnea or PND. It is associated with cough with clear sputum production and wheezing. Patient took her home inhaler without any relief. Patient states her daughter recently had the flu. No lower extremity swelling or weight gain. Does use BiPAP at night. Continues to smoke cigarettes. No fever, chills, chest pain, palpitations, abdominal pain, changes in urinary or bowel habits. In the emergency department, patient with continued wheezing despite multiple DuoNeb treatment and steroids. Review of Systems 2 Constitutional: Constitutional: Reports fatigue and Reports malaise Cardiovascular: Cardiovascular: Reports dyspnea on exertion Respiratory: Respiratory: Reports cough, Reports dyspnea on exertion and Reports wheezing Gastrointestinal: Gastrointestinal: Reports no additional gastrointestinal complaints Genitourinary: Genitourinary: Reports no additional female genitourinary complaints Endocrine: Endocrine: Reports fatigue Allergic/Immunologic: Allergic/Immunologic: Reports wheezing [facility] Medical History Right heart failure Atrial flutter History of cardioversion Leg edema Chronic respiratory failure requiring treatment with nocturnal BPAP by mask Morbid obesity Diabetes HLD (hyperlipidemia) HTN (hypertension) DVT of axillary vein, acute Arthritis Scoliosis Disc disorder of cervical region Disc disorder of lumbar region COPD (chronic obstructive pulmonary disease) Family History Father Stroke Other Diabetes Surgical History History of prolapse of bladder Hx of abdominoplasty History of partial hysterectomy Hx of esophagogastroduodenoscopy Hx of gastric bypass Status post knee replacement Previous back surgery Social History Household Members: Family Household Members Other:: daughter Housing: Apartment Do you presently have visiting nurse or other home services: Yes Alcohol intake: never Comment: PT REFUSING ALL SAFTEY AND FALL PRECAUTIONS Patient Tobacco Use Status: Current everyday Tobacco user Tobacco use type: Cigarette Cigarette Packs Per Day: 1.5 Cigarettes Per Day: 20 Years Smoked: 40 +/- Second Hand Smoke Exposure: No Advance Directives: No Advance Directives Information Provided: Yes Advance Directives Date on File: 11/24/21 service: No Meds Allergies Allergy/AdvReac Type Severity Reaction Status Date / Time adhesive Allergy Rash Verified 11/26/24 23:54 Home Medications ?Medication ?Instructions ?Recorded ?Confirmed ?Last Taken ?Type albuterol sulfate 90 mcg/actuation 2 puff inhalation Q4-6H PRN 11/24/21 03/24/23 03/21/23 History aerosol inhaler Respiratory Distress duloxetine 40 mg capsule,delayed 40 mg PO DAILY 11/24/21 03/24/23 03/23/23 History release sprinkle duloxetine 60 mg capsule,delayed 60 mg PO DAILY 11/24/21 03/24/23 03/23/23 History release penicillin V potassium 250 mg 250 mg PO BID 11/24/21 03/24/23 03/23/23 History tablet nitrofurantoin 100 mg PO BID 12/31/21 03/24/23 03/23/23 History monohydrate/macrocrystals 100 mg capsule ropinirole 0.5 mg tablet 0.5 mg PO TID 05/01/22 03/24/23 03/23/23 History budesonide-formoterol HFA 80 2 puff inhalation BID 09/29/22 03/24/23 03/21/23 History mcg-4.5 mcg/actuation aerosol inhaler (Symbicort) clonidine HCl 0.1 mg tablet 0.1 mg PO BID PRN Anxiety 02/05/23 03/24/23 03/17/23 History cyclobenzaprine 5 mg tablet 5 mg PO BEDTIME PRN muscle spasm 02/05/23 03/24/23 03/23/23 History ipratropium bromide 21 mcg (0.03 2 spray intranasal BID PRN Allergy 02/05/23 03/24/23 03/21/23 History %) nasal spray Symptoms lamotrigine 200 mg tablet 200 mg PO BEDTIME 02/05/23 03/24/23 03/23/23 History lamotrigine 25 mg tablet 50 mg PO BEDTIME 02/05/23 03/24/23 03/23/23 History nicotine 21 mg/24 hr daily 21 mg transdermal DAILY PRN 02/19/23 03/24/23 03/17/23 History transdermal patch Nicotine Cravings Physical Exam 2 Vital Signs and Narrative: Vital Signs: Last Vital Signs Temp 97.7 F 11/26/24 23:47 Pulse 73 11/27/24 01:00 Resp 28 H 11/27/24 01:00 BP 112/51 L 11/26/24 23:47 Pulse Ox 95 11/26/24 23:47 O2 Del Method Room Air 11/26/24 23:47 BMI result Body Mass Index 45.5 Middle-aged female lying in bed in mild distress Neck supple, no JVD Regular rate and rhythm, S1-S2 heard Bilateral wheezing appreciated Abdomen soft nontender, no guarding, no rigidity Patient is awake, alert and oriented to self, place, time and person ; no focal motor deficit Psych: Normal mood No pedal edema Results Labs 11/27/24 00:10 11/27/24 00:10 Labs: Laboratory Results - last 24 hr 11/27/24 11/27/24 11/27/24 00:09 00:10 00:15 MCV 80.7 MCH 25.9 L MCHC 32.1 RDW 17.1 H Plt Count 237 MPV 9.4 Immature Gran % (Auto) 0.3 Neut % (Auto) 59.4 Lymph % (Auto) 28.4 [place] % (Auto) 9.2 Eos % (Auto) 2.2 Baso % (Auto) 0.5 Lymph # (Auto) 1.9 [place] # (Auto) 0.6 Eos # (Auto) 0.1 Baso # (Auto) 0.0 Abs Immat Gran (auto) 0.02 Absolute Neuts (auto) 3.9 Absolute Nucleated RBC 0.000 Nucleated RBC % (auto) 0.0 VBG pH 7.45 H VBG pCO2 44 VBG pO2 41 VBG HCO3 30 H VBG O2 Saturation 69.0 VBG Base Excess 6.3 Anion Gap 14 Estim Creat Clear Calc 111.6 Estimated GFR > 60 Random Glucose 132 H Lactic Acid 1.8 Calcium 9.0 Total Bilirubin 0.5 Direct Bilirubin 0.2 AST 31 ALT 19 Alkaline Phosphatase 111 B-Natriuretic Peptide 277 H Total Protein 7.2 Albumin 3.6 Influenza Type A (PCR) NEGATIVE Influenza Type B (PCR) NEGATIVE RSV RNA Qual (PCR) NEGATIVE SARS-CoV-2 RNA (RT-PCR) NEGATIVE Assessment and Plan (1) Acute exacerbation of chronic obstructive pulmonary disease: Status: Acute Plan This is a 58-year-old female with pertinent history of atrial flutter on Xarelto, chronic hypoxemic respiratory failure due to COPD on nocturnal BiPAP at baseline, congestive heart failure with preserved ejection fraction, history of DVT on anticoagulation, mixed hyperlipidemia, hypertension, chronic back pain, rfh-qhyybvu-vdzflxydq type 2 diabetes mellitus, mood disorder, tobacco use disorder, obesity who presents to the emergency department for evaluation of dyspnea. #. Acute exacerbation of COPD in a patient with chronic hypoxemic respiratory failure: Will admit patient with scheduled and p.r.n. DuoNebs. Initiating systemic steroids. Initiating azithromycin for pleiotropic effect. Continue nocturnal BiPAP and home inhaler. #. Mood disorder: Continue home mood stabilizers #. Mixed hyperlipidemia: On statin #. Congestive heart failure with preserved ejection fraction: Continue home Lasix #. Atrial flutter/history of DVT: On Xarelto. Patient also on amiodarone and rate-controlling agents #. Tobacco use disorder: Ordered nicotine patch #. Vuo-yiroxow-dryhqebrw diabetes mellitus: Initiating Accu-Cheks with sliding scale insulin #. Obesity class 3: Counseled regarding diet and exercise #. Chronic back pain: On oral opioids Med rec pending DVT prophylaxis: Xarelto Full code. Discussed with patient at bedside Quality Stroke Does the patient have a stroke diagnosis?: No VTE Prior VTE?: No VTE Risk Level:: Medical - moderate - high VTE Device Contraindication: Treatment Not Indicated VTE Drug Contraindication: N/A - Med Ordered
[2024-11-27 05:31] LABS: MANUAL DIFF FLAG NO
[2024-11-27 05:36] LABS: Basophils Percent Auto 0.3 % (0-2); Eosinophils Percent Auto 0.1 % (0-4); Hematocrit 36.2 % (37.0-47.0); Hemoglobin 11.3 g/dl (12.0-16.0); Imm Gran Abs Auto 0.03 X10*3/uL (0.00-0.03); Imm Gran Pct Auto 0.4 % (0.0-0.4); Lymphocytes Absolute Auto 0.6 X10*3/uL (1.2-4.9); Lymphocytes Percent Auto 8.4 % (20-40); Mean Corpuscular HGB Conc 31.2 g/dl (31.0-35.0); Mean Corpuscular Hemoglobin 25.6 pg (27.0-33.0); Mean Corpuscular Volume 81.9 fL (80.0-98.0); Mean Platelet Volume 9.3 fL (9.4-12.3); Monocytes Absolute Auto 0.1 X10*3/uL (0.1-1.2); Monocytes Percent Auto 1.2 % (2-11); Neutrophils Absolute Auto 6.2 x10*3/uL (2.0-8.3); Neutrophils Percent Auto 89.6 % (45-73); Platelet Count 233 X10*3/uL (160-400); Red Blood Count 4.42 X10*6/uL (4.20-5.50); Red Cell Distribution Width 17.2 % (11.0-16.0); White Blood Count 6.9 X10*3/uL (4.8-10.8)
[2024-11-27 05:50] LABS: Anion Gap 13 (12-20); Blood Urea Nitrogen 10 mg/dL (9-16); Calcium 8.8 mg/dL (8.4-10.2); Carbon Dioxide 26 mmol/L (22-29); Chloride 106 mmol/L (96-108); Estimated Glomerular Filt Rate > 60; Glucose Random 244 mg/dL (60-115); Potassium 3.8 mmol/L (3.3-5.1); Sodium 141 mmol/L (135-145)
[2024-11-27] MEDS: Albuterol/Iprat 2.5/0.5MG 3 ML AMPUL.NEB INHALE ×3 (07:29→19:31)
[2024-11-27 07:47] LABS: Glucose, Whole Blood 262 mg/dL (60-115)
[2024-11-27] MEDS: Insulin Lispro 100 UNIT/ML 3 ML VIAL SUBCUT ×4 (07:54→20:19)
[2024-11-27] MEDS: Furosemide 40 MG TABLET PO (08:01)
[2024-11-27] MEDS: Nicotine 14 MG PATCH.TD24 TRANSDERMA (08:01)
[2024-11-27] MEDS: predniSONE 20 MG TABLET 40 MG PO (08:03)
[2024-11-27] MEDS: 0.9 % Sodium Chloride Flush 3 ML SYRINGE IVFLUSH ×2 (08:04→17:14)
--- NOTE | 2024-11-27 09:25 | PHA.MEDREC ---
Addendum entered by Montse Plata RP 11/27/24 12:06: [facility] REVIEWED Original Note: Pharmacy Consult ? Medication Reconciliation Pharmacy has completed the medication reconciliation. Spoke to pt to confirm meds. Per pt, takes lamictal 50 AM and 200 PM. Does not take rosuvastatin anymore to their knowledge.
--- NOTE | 2024-11-27 12:22 | PM.EVENT ---
Event Note Date of Service: 11/27/24 Event Note: Seen and evaluated this morning feels better already asking if she can have a nebulizer at home concerned about her dog and might leave AMA if she can not find anyone to take care of Continue nebulizers Wean down O2 as tolerated Steroids and Azithromycin for now BiPAP bedtime and with naps Time Spent With Patient Time: Total time managing care of this patient today ____ minutes.
[2024-11-27 13:41] LABS: Glucose, Whole Blood 257 mg/dL (60-115)
[2024-11-27 16:41] LABS: Glucose, Whole Blood 234 mg/dL (60-115)
[2024-11-27 19:51] LABS: Glucose, Whole Blood 189 mg/dL (60-115)
[2024-11-27] MEDS: Azithromycin 500 MG TABLET PO (20:19)
[2024-11-27] MEDS: rOPINIRole HCL 0.5 MG TABLET PO (20:56)
[2024-11-27] MEDS: Gabapentin 100 MG CAPSULE PO (20:56)
[2024-11-27] MEDS: lamoTRIgine 100 MG TABLET 200 MG PO (20:56)
[2024-11-27] MEDS: Rivaroxaban 20 MG TABLET PO (20:56)
[2024-11-28 07:23] LABS: Glucose, Whole Blood 182 mg/dL (60-115)
[2024-11-28 08:00] VITALS: BP 106/55; PULSE 82; RESP 18; TEMP 36.2; O2SAT 95
[2024-11-28] MEDS: Albuterol/Iprat 2.5/0.5MG 3 ML AMPUL.NEB INHALE (08:07)
[2024-11-28] MEDS: Fluticasone/Umeclidinium/Vilanterol 100/62.5/25 BLST.W.DEV 1 PUFF INHALE (08:07)
[2024-11-28 08:09] VITALS: PULSE 60; RESP 18; O2SAT 97
[2024-11-28] MEDS: Nicotine 14 MG PATCH.TD24 TRANSDERMA (08:19)
[2024-11-28] MEDS: Insulin Lispro 100 UNIT/ML 3 ML VIAL SUBCUT (08:19)
[2024-11-28] MEDS: DULoxetine HCl 60 MG CAPSULE.DR PO (08:20)
[2024-11-28] MEDS: lamoTRIgine 25 MG TABLET 50 MG PO (08:20)
[2024-11-28] MEDS: Gabapentin 100 MG CAPSULE PO (08:20)
[2024-11-28] MEDS: rOPINIRole HCL 0.5 MG TABLET PO (08:20)
[2024-11-28] MEDS: predniSONE 20 MG TABLET 40 MG PO (08:20)
[2024-11-28] MEDS: Furosemide 40 MG TABLET PO (08:20)
[2024-11-28] MEDS: DULoxetine HCl 20 MG CAPSULE.DR 40 MG PO (08:20)
[2024-11-28] MEDS: Loratadine 10 MG TABLET PO (08:20)
--- NOTE | 2024-11-28 09:21 | MHC.CM.PN ---
NOE 11/28/24, PT W/COPD EXAC, CM MET W/PTWHO IS A&OX 4, PT NOW LIVES ALONE AFTER DTRS WHO LIVED W/PT RECENTLY MOVED TO [place], PT REPORTS SHE HAS 2 OTHER DTRS NEARBY, PT HAS A CANE/WALKER/BIPAP W/O2 AT [facility], A MED BOX THAT LETS PT KNOW WHEN SHE NEEDS TO TAKE HER MEDS AND A LIFELINE FOR DME, PT USES [employer] FOR JUST UNDER 20 [employer], PT REPORTS SHE MET W/HOSPITALIST AND WILL BE DISCHARGING BY NOON TODAY. PT WILL RESUME [employer] AND CONTACT FAMILY FOR TRANSPORT HOME. PT VERIFIES PCP IS LATOYA DOSHI AND HCP IS DTR ANDRA JANSEN [phone] OF [place], COPY REQUESTED
--- NOTE | 2024-11-28 10:50 | PM.DS ---
DS: Providers Provider Date of Service: 11/28/24 Date of admission: 11/27/24 02:11 Date of discharge: 11/28/24 Primary care physician: Dallas José DO DS: Diagnosis Discharge Diagnosis (1) Acute exacerbation of chronic obstructive pulmonary disease: Status: Acute (2) Chronic lung disease: Status: Acute DS: Summary Hospital Course Hospital Course: Admission note HPI This is a 58-year-old female with pertinent history of atrial flutter on Xarelto, chronic hypoxemic respiratory failure due to COPD on nocturnal BiPAP at baseline, congestive heart failure with preserved ejection fraction, history of DVT on anticoagulation, mixed hyperlipidemia, hypertension, chronic back pain, [id number] type 2 diabetes mellitus, mood disorder, tobacco use disorder, obesity who presents to the emergency department for evaluation of dyspnea. Patient states her symptoms started 3 days prior to presentation. She has been having dyspnea which is worse with exertion. No orthopnea or PND. It is associated with cough with clear sputum production and wheezing. Patient took her home inhaler without any relief. Patient states her daughter recently had the flu. No lower extremity swelling or weight gain. Does use BiPAP at night. Continues to smoke cigarettes. No fever, chills, chest pain, palpitations, abdominal pain, changes in urinary or bowel habits. In the emergency department, patient with continued wheezing despite multiple DuoNeb treatment and steroids. Hospital course # Acute exacerbation of COPD in a patient with chronic hypoxemic respiratory failure treated with scheduled and p.r.n. DuoNebs. with IV then PO systemic steroids along with azithromycin for pleiotropic effect. Continued her nocturnal BiPAP and home inhaler. she improved and weaned off O2. she was able to ambulate on room air with no reported dyspnea or hypoxia. to be discharged on tapering dose prednisone, Azithromycin for 5 days and nicotine patches with advice to quit smoking. Discharge plan Prednisone taper dose Use your home inhalers as needed Azithromycin for 5 more days Nicotic patches prescribed we advise you to quit smoking Time Attestation Discharge Coordination Time (in mins): 27 Quality: Safe Use of Opioids Does Pt have an Active Cancer Diagnosis on the Problem List?: No Quality: Stroke Does the patient have a stroke diagnosis?: No Physical Exam Vital Signs: Vital Signs: Last Vital Signs Temp 97.1 F 11/28/24 08:00 Pulse 60 11/28/24 08:09 Resp 18 11/28/24 08:09 BP 106/55 L 11/28/24 08:00 Pulse Ox 95 11/28/24 08:00 O2 Del Method Room Air 11/28/24 08:00 O2 Flow Rate 3 11/27/24 16:03 BMI result Body Mass Index 43.5 Const: Other: Constitutional : Awake, interactive, not in distress Neck : Normal inspection, Supple Cardiovascular : RRR, no JVP, no lower extremity edema Respiratory : good bilateral air entry, no crackles, scattered wheezes, on RA Gastrointestinal: soft, lax, Normal bowel sounds, Non tender Skin : Warm, Dry Neurological : Alert & oriented x3, No focal deficit DS: Data Data Completed and Pending Completed studies during hospitalization [Text1]: Procedures Assistance with Respiratory Ventilation, Less than 24 Consecutive Hours, Continuous Positive Airway Pressure (02/06/23) [employer] of Cardiac Rhythm, Single (02/06/23) Ultrasonography of Heart with Aorta, Transesophageal (02/06/23) Labs on day of discharge: Laboratory Results - last 24 hr 11/27/24 11/27/24 11/27/24 13:23 16:34 19:48 POC Glucose 257 H 234 H 189 H 11/28/24 07:13 POC Glucose 182 H Preliminary micro results at discharge 11/27/24 00:40 Blood Culture - Preliminary Blood - Venous No growth after 24 hours. 11/27/24 00:40 Blood Culture - Preliminary Blood - Venous No growth after 24 hours. Imaging Chest x-ray: Radiologist's impression: Impression: Perihilar interstitial prominence. This can be seen with bronchitis/bronchiolitis, edema, or interstitial lung disease. Discharge Plan Discharge Anticipated Discharge Date/Time: 11/28/24 10:41 Patient Disposition: Home, Self-Care Discharge Diagnosis: COPD exacerbation Referrals: Dallas José DO [Primary Care Provider] - 1 Week Discharge Medications: New nicotine 14 mg/24 hr Patch 24 Hour 14 mg transdermal DAILY Qty: 30 0RF prednisone 10 mg tablet See Taper PO DIRECTED Qty: 30 0RF Taper: Prednisone 40 mg daily for 3 Days and 0 Hour 30 mg daily for 3 Days and 0 Hour 20 mg daily for 3 Days and 0 Hour 10 mg daily for 3 Days and 0 Hour Rx Instructions: see taper instructions azithromycin 250 mg tablet 250 mg PO DAILY 5 Days Qty: 5 0RF Continued loratadine 10 mg tablet 10 mg PO DAILY Qty: 90 0RF albuterol sulfate 90 mcg/actuation Hfa Aerosol Inhaler 2 puff INHALATION Q6H PRN (Reason: Respiratory Distress) duloxetine 60 mg Capsule,Delayed Release(Dr/Ec) 60 mg PO DAILY Rx Instructions: TAKE WITH 40MG duloxetine 40 mg Capsule, Delayed Rel Sprinkle 40 mg PO DAILY Rx Instructions: TAKE WITH 60MG lamotrigine 200 mg tablet 200 mg PO BEDTIME Rx Instructions: TAKE WITH 50MG lamotrigine 25 mg tablet 50 mg PO DAILY nicotine 21 mg/24 hr patch 24 hour 21 mg transdermal DAILY metformin 500 mg tablet 500 mg PO BID gabapentin 100 mg capsule 100 mg PO TID fentanyl 75 mcg/hr patch 72 hour 1 patch topical Q3D Trelegy Ellipta 100-62.5-25 mcg blister with device 1 ea inhalation DAILY Xarelto 20 mg tablet 20 mg PO BEDTIME ropinirole 0.5 mg tablet 0.5 mg PO TID Discharge Orders: Discharge Order (Routine); Ordered 11/28/24 Ordered By: Flor Pina Diet: Advance to usual diet Activity on Discharge: As tolerated Stand Alone Forms: Patient Portal Discharge page Print Language: Armenian Care Plan Goals: Prednisone taper dose Use your home inhalers as needed Azithromycin for 5 more days Nicotic patches prescribed we advise you to quit smoking Health Concerns: COPD Exacerbation smoking Plan of Treatment: Prednisone, Azithromycin Assessment: as above
[2024-11-28 11:14] VITALS: BP 149/63; PULSE 75; RESP 18; TEMP 36.3; O2SAT 99
== END 2024-11-28 11:34 | disposition home or self-care (01) ==
LOC: HO.ED 11-27 03:19 → HO.EDOVER 11-27 03:23 → HO.S3 11-27 12:27
PROVIDERS: Admitting Provider Student in an Organized Health Care Education/Training Program; Emergency Provider Emergency Medicine; PCP Family Medicine; Visit Provider Student in an Organized Health Care Education/Training Program
DX: J44.1 Chronic obstructive pulmonary disease with (acute) exacerbation (principal); J98.4 Other disorders of lung; R06.00 Dyspnea, unspecified; I10 Essential (primary) hypertension; E11.9 Type 2 diabetes mellitus without complications; I48.92 Unspecified atrial flutter; F39 Unspecified mood [affective] disorder; E78.2 Mixed hyperlipidemia; E66.813 Obesity, class 3; G89.29 Other chronic pain; Z79.01 Long term (current) use of anticoagulants; Z03.818 Encounter for observation for suspected exposure to other biological agents ruled out; Z79.899 Other long term (current) drug therapy
CPT/HCPCS: 0241U; 36415; 71045; 80048; 80076; 82803; 82947; 83605; 83880; 84484; 85025; 87040; 93005; 94640; 96365; 96366; 96368; 96375; 99221; 99285; J0456; J0696; J2919; J3475

== ENCOUNTER → 2024-11-26 23:54 | Outpatient (BNV) | payer OTHER, SELFPAY | PROVIDERS: Emergency Provider Emergency Medicine; Visit Provider Radiology Diagnostic Radiology | DX: R91.8 Other nonspecific abnormal finding of lung field (principal) | CPT/HCPCS: 71045 ==

== ENCOUNTER → 2024-11-26 23:54 | Outpatient (BNV) | payer OTHER, SELFPAY | PROVIDERS: Admitting Provider Student in an Organized Health Care Education/Training Program; Emergency Provider Emergency Medicine; PCP Family Medicine; Visit Provider Internal Medicine | DX: R06.00 Dyspnea, unspecified (principal) | CPT/HCPCS: 93010 ==

== ENCOUNTER → 2024-11-27 02:11 | Outpatient (BNV) | payer OTHER, SELFPAY | PROVIDERS: Admitting Provider Student in an Organized Health Care Education/Training Program; Emergency Provider Emergency Medicine; PCP Family Medicine; Visit Provider Student in an Organized Health Care Education/Training Program | DX: J44.1 Chronic obstructive pulmonary disease with (acute) exacerbation (principal); J96.21 Acute and chronic respiratory failure with hypoxia | CPT/HCPCS: 99222; 99238; 99499 ==

== ENCOUNTER 2024-12-01 18:19 | Inpatient (IN) | payer OTHER, SELFPAY ==
[2024-12-01] VITALS (7 sets, daily range): BP systolic 138–171; BP diastolic 57–100; PULSE 77–170; RESP 18–28; TEMP 36.8–37; O2SAT 86–98; BMI 44.3
--- NOTE | ~2024-12-01 | XR_ITS ---
CLINICAL HISTORY: SOB Two views of the chest. COMPARISON: XR chest dated 11/26/24 at 23:59 EDT FINDINGS: Spinal stimulator leads overlie the midthoracic spine. Borderline cardiomegaly. Atherosclerotic thoracic aorta. No consolidation. Bronchial wall thickening. No pleural effusion. No pneumothorax. Mild spondylosis. No acute fracture. IMPRESSION: 1. Bronchial wall thickening. Nonspecific finding can be seen with pulmonary edema or a multifocal infectious or inflammatory process. This document has been electronically signed by: Joel Koehler MD on 12/01/2024 19:23:49
--- NOTE | 2024-12-01 18:24 | ED_ITS ---
HPI - General Adult General Chief complaint: Chest Pain Stated complaint: difficulty breathing Time Seen by Provider: 12/01/24 19:41 Source: patient Mode of arrival: ambulatory Limitations: no limitations History of Present Illness ED Provider: DR. Morgan HPI narrative: A 58-year-old female with pertinent history of a flutter on Xarelto, chronic hypoxemic respiratory failure due to COPD use BiPAP at night, CHFrEF, DVT, mixed LDH, HTN, non insulin type 2 diabetes mellitus, tobacco smoker patient was hospitalized last week for acute exacerbation of COPD with chronic hypoxemic respiratory failure patient was discharged home after 2 days of admission after subjective improvement. For the last 2 days at home patient been having progressively worsening of difficulty breathing mostly with any minimal exertion, patient was discharged home on prednisone and 2 days of Zithromax. Related Data Home Medications ?Medication ?Instructions ?Recorded ?Confirmed albuterol sulfate 90 mcg/actuation 2 puff inhalation Q6H PRN 11/24/21 11/27/24 aerosol inhaler Respiratory Distress duloxetine 40 mg capsule,delayed 40 mg PO DAILY 11/24/21 11/27/24 release sprinkle duloxetine 60 mg capsule,delayed 60 mg PO DAILY 11/24/21 11/27/24 release ropinirole 0.5 mg tablet 0.5 mg PO TID 05/01/22 11/27/24 lamotrigine 200 mg tablet 200 mg PO BEDTIME 02/05/23 11/27/24 lamotrigine 25 mg tablet 50 mg PO DAILY 02/05/23 11/27/24 nicotine 21 mg/24 hr daily 21 mg transdermal DAILY Nicotine 02/19/23 11/27/24 transdermal patch Cravings fentanyl 75 mcg/hr transdermal 1 patch topical Q3D 11/27/24 11/27/24 patch fluticasone fur. 100 mcg-umeclid 1 ea inhalation DAILY 11/27/24 11/27/24 62.5 mcg-vilant 25 mcg inhalat.powder (Trelegy Ellipta) gabapentin 100 mg capsule 100 mg PO TID 11/27/24 11/27/24 metformin 500 mg tablet 500 mg PO BID 11/27/24 11/27/24 rivaroxaban 20 mg tablet (Xarelto) 20 mg PO BEDTIME 11/27/24 11/27/24 Previous Rx's ?Medication ?Instructions ?Recorded loratadine 10 mg tablet 10 mg PO DAILY #90 tabs 10/19/24 azithromycin 250 mg tablet 250 mg PO DAILY 5 days #5 tabs 11/28/24 nicotine 14 mg/24 hr daily 14 mg transdermal DAILY #30 ea 11/28/24 transdermal patch prednisone 10 mg tablet See Taper PO DIRECTED #30 tabs 11/28/24 Allergies Allergy/AdvReac Type Severity Reaction Status Date / Time adhesive Allergy Rash Verified 12/01/24 18:27 Review of Systems 2 Review of Systems: All other systems are reviewed and are negative Constitutional: Reports as per HPI and Reports no additional constitutional complaints Eyes: Reports as per HPI and Reports no additional eye complaints Reports system reviewed and no additional complaints, except as documented Cardiovascular: Reports as per HPI and Reports no additional cardiovascular complaints Respiratory: Reports as per HPI and Reports no additional respiratory complaints Gastrointestinal: Reports as per HPI and Reports no additional gastrointestinal complaints Genitourinary: Reports no additional female genitourinary complaints Musculoskeletal: Reports no additional musculoskeletal complaints Skin/Breast: Reports system reviewed and no additional complaints, except as docu Psychiatric: Reports no additional psychiatric complaints Endocrine: Reports no additional endocrine complaints Hematologic/Lymphatic: Reports no additional hematologic/lymphatic complaints Allergic/Immunologic: Reports no additional allergic/immunologic complaints Reports system reviewed and no additional complaints, except as documented and Reports Abnormal speech present [facility] Past Medical History Medical History Right heart failure Atrial flutter History of cardioversion Leg edema Chronic respiratory failure requiring treatment with nocturnal BPAP by mask Morbid obesity Diabetes HLD (hyperlipidemia) HTN (hypertension) DVT of axillary vein, acute Arthritis Scoliosis Disc disorder of cervical region Disc disorder of lumbar region COPD (chronic obstructive pulmonary disease) Surgical History History of prolapse of bladder Hx of abdominoplasty History of partial hysterectomy Hx of esophagogastroduodenoscopy Hx of gastric bypass Status post knee replacement Previous back surgery Family History Family History Father Stroke Other Diabetes Social History Social History Household Members: Family Household Members Other:: daughter Housing: Apartment Do you presently have visiting nurse or other home services: Yes Alcohol intake: never Comment: PT REFUSING ALL SAFTEY AND FALL PRECAUTIONS Patient Tobacco Use Status: Current everyday Tobacco user Tobacco use type: Cigarette Cigarette Packs Per Day: 1.5 Cigarettes Per Day: 30 Years Smoked: 40 +/- Second Hand Smoke Exposure: No Advance Directives: Yes Advance Directives on File: Yes Advance Directives Date on File: 11/24/21 service: No Physical Exam ED Vital Signs: Vital Signs - 24 hr 12/01/24 18:25 12/01/24 19:38 Temperature 98.4 F 98.6 F Pulse Rate 88 77 Respiratory Rate 24 H 21 H Blood Pressure 171/100 H 148/57 H Pulse Oximetry 98 96 Oxygen Delivery Method Room Air Room Air BMI result Body Mass Index 44.3 Vital signs have been reviewed and appear to be correct. Blood pressure elevated. Heart rate normal. Respiratory rate normal. Temperature normal. Oxygen saturation normal. Appearance: Alert. Oriented X3. No acute distress. Head: Normal external exam. Normocephalic. Atraumatic. No Han signs noted. No raccoon eyes noted Eyes: PERRLA. EOMI. Conjunctiva and sclera normal. Eyelids normal. ENT: TM's Normal. Pharynx normal. Uvula midline. Moist mucous membranes. No trismus noted. No drooling noted. No muffled voice noted. Neck: Normal inspection. Neck supple. FROM. No adenopathy. Thyroid Normal. No meningeal signs. No neck mass noted. CVS: Normal heart rate and rhythm. Heart sound normal. No murmurs noted. Pulses normal throughout. Respiratory: No respiratory distress. Painless inspiration. Diffuse mild expiratory wheezing with prolonged expiration, Chest nontender. No accessory muscle usage noted or decreased air movement noted. Abdomen: Soft and nontender. Bowel sounds normal in all 4 quadrants. No distention noted. No organomegaly noted. No visible injury noted. Back: No CVA tenderness. Full range of motion noted. Skin: Skin warm and dry. Normal skin color. Normal skin turgor. No rashes/lesions/lacerations noted. Extremities: No lower extremity edema. Extremities exhibit normal range of motion. Extremities nontender. Neuro: Oriented X 3. Cranial nerve exam: II-XII are grossly intact No motor deficit. No sensory deficit. Reflexes normal. Course Course Course Narrative: This is a rapid medical exam performed by Luis Manuel Zambrano NP: Additional HPI, ROS, PE not included below will be deferred to primary provider. SOB PE: 97-98% on RA, A&O x3, mild increased work of breathing, sitting upright, speaking in full sentences. Plan: Labs, EKG, viral swabs, UA, CXR Reevaluation(s) Reevaluation #1: 58-year-old female with chronic hypoxemic respiratory failure and COPD had a recent admission for COPD exacerbation returned today for COPD exacerbation. Time: 21:00 Medications Administered Generic Name Dose Route Start Last Admin Trade Name Freq PRN Reason Stop Dose Admin Magnesium Sulfate 2 gm in 50 mls @ 25 mls/hr 12/01/24 19:47 12/01/24 20:07 Magnesium Sulfate/H2o IV 12/01/24 21:46 25 mls/hr ONCE ONE Administration Discontinued Medications Generic Name Dose Route Start Last Admin Trade Name Freq PRN Reason Stop Dose Admin Albuterol Sulfate 2.5 mg/ 0 mg 12/01/24 20:17 12/01/24 20:19 Albuterol/Ipratropium 3 ml INHALE 12/01/24 20:18 1 dose ONCE ONE Administration Methylprednisolone Sodium Succinate 125 mg 12/01/24 19:47 12/01/24 20:07 Methylprednisolone Sod Succ 125 Mg Vial IVPUSH 12/01/24 19:48 125 mg ONCE ONE Administration Medical Decision Making Differential Diagnosis Differential Diagnoses: The differential diagnosis associated with the presentation includes (Pneumonia, pneumothorax, pleural effusion, COPD exacerbation, acute respiratory failure, CHF.) Admission/Observation Consideration of admission/observation: Escalation of care including admission/observation considered Consult Healthcare Provider Management of the patient was discussed with: Hospitalist (Dr. Welch) Lab Data MDM Lab Attestation statement: I reviewed the patient's lab results. 12/01/24 18:49 12/01/24 18:49 Labs: Lab Results 12/01/24 12/01/24 12/01/24 Range/Units 18:48 18:49 18:59 WBC 5.5 (4.8-10.8) X10*3/uL RBC 4.80 (4.20-5.50) X10*6/uL Hgb 12.2 (12.0-16.0) g/dl Hct 39.2 (37.0-47.0) % MCV 81.7 (80.0-98.0) fL MCH 25.4 L (27.0-33.0) pg MCHC 31.1 (31.0-35.0) g/dl RDW 17.0 H (11.0-16.0) % Plt Count 274 (160-400) X10*3/uL MPV 9.8 (9.4-12.3) fL Immature Gran % (Auto) 1.1 H (0.0-0.4) % Neut % (Auto) 68.7 (45-73) % Lymph % (Auto) 23.9 (20-40) % [place] % (Auto) 5.8 (2-11) % Eos % (Auto) 0.0 (0-4) % Baso % (Auto) 0.5 (0-2) % Lymph # (Auto) 1.3 (1.2-4.9) X10*3/uL [place] # (Auto) 0.3 (0.1-1.2) X10*3/uL Eos # (Auto) 0.0 (0.0-0.4) X10*3/uL Baso # (Auto) 0.0 (0.0-0.2) X10*3/uL Abs Immat Gran (auto) 0.06 H (0.00-0.03) X10*3/uL Absolute Neuts (auto) 3.8 (2.0-8.3) x10*3/uL Absolute Nucleated RBC 0.020 H (0.0-0.012) X10*3/uL Nucleated RBC % (auto) 0.4 H (0.0-0.2) /100WBC VBG pH 7.42 Cancelled (7.32-7.43) VBG pCO2 54 Cancelled mmHg VBG pO2 33 Cancelled mmHg VBG HCO3 35 H Cancelled (22-26) mmol/L VBG O2 Saturation 52.0 Cancelled % VBG Base Excess 9.3 Cancelled mmol/L Sodium 141 (135-145) mmol/L Potassium 4.4 (3.3-5.1) mmol/L Chloride 102 (96-108) mmol/L Carbon Dioxide 29 (22-29) mmol/L Anion Gap 14 (12-20) BUN 9 (9-16) mg/dL Creatinine 0.65 (0.5-1.4) mg/dL Estim Creat Clear Calc 111.5 Estimated GFR > 60 Random Glucose 144 H (60-115) mg/dL Calcium 9.5 D (8.4-10.2) mg/dL Total Bilirubin 0.8 (0.0-1.0) mg/dL AST 79 H (5-31) U/L ALT 61 H (0-31) U/L Alkaline Phosphatase 112 (39-117) U/L Troponin I High Sens 4.3 D (<3.5-17.0) ng/L B-Natriuretic Peptide 343 H (<100) pg/mL Total Protein 7.7 (6.5-8.0) g/dL Albumin 3.9 (3.5-5.0) g/dL Urine Color Urine Appearance Urine pH (5.0-9.0) Ur Specific [place] (1.005-1.025) Urine Protein (Neg-Trace) mg/dL Urine Glucose (UA) (Negative) mg/dL Urine Ketones (Negative) mg/dL Urine Blood (Negative) Urine Nitrite (Negative) Ur Leukocyte Esterase (Negative) Influenza Type A (PCR) NEGATIVE (Negative) Influenza Type B (PCR) NEGATIVE (Negative) RSV RNA Qual (PCR) NEGATIVE (Negative) SARS-CoV-2 RNA (RT-PCR) NEGATIVE (Negative) 12/01/24 Range/Units 19:40 WBC (4.8-10.8) X10*3/uL RBC (4.20-5.50) X10*6/uL Hgb (12.0-16.0) g/dl Hct (37.0-47.0) % MCV (80.0-98.0) fL MCH (27.0-33.0) pg MCHC (31.0-35.0) g/dl RDW (11.0-16.0) % Plt Count (160-400) X10*3/uL MPV (9.4-12.3) fL Immature Gran % (Auto) (0.0-0.4) % Neut % (Auto) (45-73) % Lymph % (Auto) (20-40) % [place] % (Auto) (2-11) % Eos % (Auto) (0-4) % Baso % (Auto) (0-2) % Lymph # (Auto) (1.2-4.9) X10*3/uL [place] # (Auto) (0.1-1.2) X10*3/uL Eos # (Auto) (0.0-0.4) X10*3/uL Baso # (Auto) (0.0-0.2) X10*3/uL Abs Immat Gran (auto) (0.00-0.03) X10*3/uL Absolute Neuts (auto) (2.0-8.3) x10*3/uL Absolute Nucleated RBC (0.0-0.012) X10*3/uL Nucleated RBC % (auto) (0.0-0.2) /100WBC VBG pH (7.32-7.43) VBG pCO2 mmHg VBG pO2 mmHg VBG HCO3 (22-26) mmol/L VBG O2 Saturation % VBG Base Excess mmol/L Sodium (135-145) mmol/L Potassium (3.3-5.1) mmol/L Chloride (96-108) mmol/L Carbon Dioxide (22-29) mmol/L Anion Gap (12-20) BUN (9-16) mg/dL Creatinine (0.5-1.4) mg/dL Estim Creat Clear Calc Estimated GFR Random Glucose (60-115) mg/dL Calcium (8.4-10.2) mg/dL Total Bilirubin (0.0-1.0) mg/dL AST (5-31) U/L ALT (0-31) U/L Alkaline Phosphatase (39-117) U/L Troponin I High Sens (<3.5-17.0) ng/L B-Natriuretic Peptide (<100) pg/mL Total Protein (6.5-8.0) g/dL Albumin (3.5-5.0) g/dL Urine Color Yellow Urine Appearance Clear Urine pH 6.5 (5.0-9.0) Ur Specific [place] <= 1.005 (1.005-1.025) Urine Protein Negative (Neg-Trace) mg/dL Urine Glucose (UA) Negative (Negative) mg/dL Urine Ketones Negative (Negative) mg/dL Urine Blood Negative (Negative) Urine Nitrite Negative (Negative) Ur Leukocyte Esterase Negative (Negative) Influenza Type A (PCR) (Negative) Influenza Type B (PCR) (Negative) RSV RNA Qual (PCR) (Negative) SARS-CoV-2 RNA (RT-PCR) (Negative) Independent Interpretation I performed an independent interpretation of an: Plain X-Ray (Chest:. Bronchial wall thickening. Nonspecific finding can be seen with pulmonary edema or a multifocal infectious or inflammatory process.) Radiology Impression Discussion of test interpretation with radiology: I have reviewed the radiologist's reading. Discharge Plan Discharge Clinical Impression: Acute exacerbation of chronic obstructive pulmonary disease Patient Disposition: Admitted As Inpatient Print Language: Thai
--- NOTE | 2024-12-01 18:27 | ECG_ITS ---
Test Reason : sob Blood Pressure : */* mmHG Vent. Rate : 81 BPM Atrial Rate : 81 BPM P-R Int : 108 ms QRS Dur : 76 ms QT Int : 386 ms P-R-T Axes : 92 25 39 degrees QTcB Int : 448 ms Atrial-paced rhythm Low voltage QRS Septal infarct , age undetermined Abnormal ECG When compared with ECG of 27-Nov-2024 00:25, Electronic atrial pacemaker has replaced Sinus rhythm Referred By: Leyda Zambrano Electronically Signed By: TERESO NICHOLAS
[2024-12-01 18:53] LABS: MANUAL DIFF FLAG NO
[2024-12-01 19:01] LABS: VBG Base Excess 9.3 mmol/L; VBG HCO3 35 mmol/L (22-26); VBG pCO2 54 mmHg; VBG pH 7.42 (7.32-7.43); VBG pO2 33 mmHg
[2024-12-01 19:02] LABS: Venous Blood Gas Refer to POC result
[2024-12-01 19:18] LABS: Alanine Aminotransferase 61 U/L (0-31); Albumin Level 3.9 g/dL (3.5-5.0); Alkaline Phosphatase 112 U/L (39-117); Anion Gap 14 (12-20); Aspartate Amino Transferase 79 U/L (5-31); Bilirubin Total 0.8 mg/dL (0.0-1.0); Blood Urea Nitrogen 9 mg/dL (9-16); Calcium 9.5 mg/dL (8.4-10.2); Carbon Dioxide 29 mmol/L (22-29); Chloride 102 mmol/L (96-108); Creatinine Clr Calc Pharmacy 111.5; Estimated Glomerular Filt Rate > 60; Glucose Random 144 mg/dL (60-115); Potassium 4.4 mmol/L (3.3-5.1); Sodium 141 mmol/L (135-145); Total Protein 7.7 g/dL (6.5-8.0)
[2024-12-01 19:20] LABS: Basophils Percent Auto 0.5 % (0-2); Hematocrit 39.2 % (37.0-47.0); Hemoglobin 12.2 g/dl (12.0-16.0); Imm Gran Abs Auto 0.06 X10*3/uL (0.00-0.03); Imm Gran Pct Auto 1.1 % (0.0-0.4); Lymphocytes Absolute Auto 1.3 X10*3/uL (1.2-4.9); Lymphocytes Percent Auto 23.9 % (20-40); Mean Corpuscular HGB Conc 31.1 g/dl (31.0-35.0); Mean Corpuscular Hemoglobin 25.4 pg (27.0-33.0); Mean Corpuscular Volume 81.7 fL (80.0-98.0); Mean Platelet Volume 9.8 fL (9.4-12.3); Monocytes Absolute Auto 0.3 X10*3/uL (0.1-1.2); Monocytes Percent Auto 5.8 % (2-11); NRBC Pct Auto 0.4 /100WBC (0.0-0.2); Neutrophils Absolute Auto 3.8 x10*3/uL (2.0-8.3); Neutrophils Percent Auto 68.7 % (45-73); Platelet Count 274 X10*3/uL (160-400); White Blood Count 5.5 X10*3/uL (4.8-10.8)
[2024-12-01 19:21] LABS: B Type Natriuretic Peptide 343 pg/mL (<100)
[2024-12-01 19:24] LABS: Troponin-I High Sensitivity 4.3 ng/L (<3.5-17.0)
--- NOTE | 2024-12-01 19:36 | MHC.EDTECH ---
Pt brought to ED2 from waiting room. Pt gave urine specimen, t/w sent down to lab. Pt placed on the monitor and vital signs up to date. Call pelaez within reach.
[2024-12-01 19:40] LABS: Influenza A PCR NEGATIVE (Negative); Influenza B PCR NEGATIVE (Negative); Resp Syncy Virus RNA Qual PCR NEGATIVE (Negative); SARS COV2 PCR INHOUSE NEGATIVE (Negative)
[2024-12-01 19:50] LABS: Appearance Urine Clear; Color Urine Yellow; Glucose Urine UA Negative (Negative); Leukocyte Esterase Urine Negative (Negative); Nitrite Urine Negative (Negative); PH 6.5 (5.0-9.0); Specific Gravity - Urine <= 1.005 (1.005-1.025); Urine Blood Negative (Negative); Urine Ketones Negative (Negative); Urine Protein Negative (Neg-Trace)
[2024-12-01] MEDS: Magnesium Sulfate/H2O 2 GM/50 ML PIGGYBACK IV (20:07)
[2024-12-01] MEDS: Albuterol Sulfate 2.5 MG, Albuterol/Iprat 2.5/0.5MG 3 ML 3 ML INHALE (20:19)
--- NOTE | 2024-12-01 21:30 | P.HPHOSP_ITS ---
History of Present Illness Date of Service: 12/01/24 Chief Complaint: Dyspnea This has a 58-year-old female with pertinent history of atrial flutter on Xarelto, chronic hypoxemic respiratory failure due to COPD on nocturnal BiPAP at baseline, congestive heart failure with preserved ejection fraction, history of DVT on anticoagulation, mixed hyperlipidemia, hypertension, chronic back pain, phh-bhqdbtu-dzqlzmteb type 2 diabetes mellitus, mood disorder, tobacco use disorder, obesity who presents to the emergency department evaluation of dyspnea. Patient was recently admitted for acute exacerbation of COPD on 11/27 and discharged on 11/28 with p.o. prednisone and p.o. azithromycin. Patient states her symptoms did not improve with p.o. medications. Her dyspnea was worse on the day of presentation and she decided to come back to the hospital. Patient states that dyspnea is worse when she is lying flat and she is unable to sleep at night due to dyspnea. Denies productive cough or fever. Does have wheezing. No chest pain, palpitations, abdominal pain, changes in urinary or bowel habits. In the emergency department, BNP found to be elevated and imaging concerning for pulmonary edema. Patient was given IV steroids and DuoNebs in the ER. Review of Systems 2 Constitutional: Constitutional: Reports fatigue and Reports malaise Cardiovascular: Cardiovascular: Reports dyspnea on exertion, Reports orthopnea and Reports paroxysmal nocturnal dyspnea Respiratory: Respiratory: Reports cough, Reports dyspnea on exertion and Reports wheezing Gastrointestinal: Gastrointestinal: Reports no additional gastrointestinal complaints Genitourinary: Genitourinary: Reports no additional female genitourinary complaints Endocrine: Endocrine: Reports fatigue Allergic/Immunologic: Allergic/Immunologic: Reports wheezing [facility] Medical History Right heart failure Atrial flutter History of cardioversion Leg edema Chronic respiratory failure requiring treatment with nocturnal BPAP by mask Morbid obesity Diabetes HLD (hyperlipidemia) HTN (hypertension) DVT of axillary vein, acute Arthritis Scoliosis Disc disorder of cervical region Disc disorder of lumbar region COPD (chronic obstructive pulmonary disease) Family History Father Stroke Other Diabetes Surgical History History of prolapse of bladder Hx of abdominoplasty History of partial hysterectomy Hx of esophagogastroduodenoscopy Hx of gastric bypass Status post knee replacement Previous back surgery Social History Household Members: Family Household Members Other:: daughter Housing: Apartment Do you presently have visiting nurse or other home services: Yes Alcohol intake: never Comment: PT REFUSING ALL SAFTEY AND FALL PRECAUTIONS Patient Tobacco Use Status: Current everyday Tobacco user Tobacco use type: Cigarette Cigarette Packs Per Day: 1.5 Cigarettes Per Day: 30 Years Smoked: 40 +/- Second Hand Smoke Exposure: No Advance Directives: Yes Advance Directives on File: Yes Advance Directives Date on File: 11/24/21 service: No Meds Allergies Allergy/AdvReac Type Severity Reaction Status Date / Time adhesive Allergy Rash Verified 12/01/24 18:27 Active Medications: Current Medications Furosemide (Furosemide 40 Mg/4 Ml Vial) 40 mg IVPUSH STAT STA; Protocol Stop: 12/01/24 21:30 Magnesium Sulfate (Magnesium Sulfate/H2o) 2 gm in 50 mls @ 25 mls/hr IV ONCE ONE Stop: 12/01/24 21:46 Last Admin: 12/01/24 20:07 Dose: 25 mls/hr Home Medications ?Medication ?Instructions ?Recorded ?Confirmed ?Last Taken ?Type albuterol sulfate 90 mcg/actuation 2 puff inhalation Q6H PRN 11/24/21 11/27/24 03/21/23 History aerosol inhaler Respiratory Distress duloxetine 40 mg capsule,delayed 40 mg PO DAILY 11/24/21 11/27/24 11/26/24 09:00 History release sprinkle duloxetine 60 mg capsule,delayed 60 mg PO DAILY 11/24/21 11/27/24 11/26/24 09:00 History release ropinirole 0.5 mg tablet 0.5 mg PO TID 05/01/22 11/27/24 11/26/24 09:00 History lamotrigine 200 mg tablet 200 mg PO BEDTIME 02/05/23 11/27/24 03/23/23 History lamotrigine 25 mg tablet 50 mg PO DAILY 02/05/23 11/27/24 11/26/24 09:00 History nicotine 21 mg/24 hr daily 21 mg transdermal DAILY Nicotine 02/19/23 11/27/24 03/17/23 History transdermal patch Cravings fentanyl 75 mcg/hr transdermal 1 patch topical Q3D 11/27/24 11/27/24 11/26/24 09:00 History patch fluticasone fur. 100 mcg-umeclid 1 ea inhalation DAILY 11/27/24 11/27/24 11/26/24 09:00 History 62.5 mcg-vilant 25 mcg inhalat.powder (Trelegy Ellipta) gabapentin 100 mg capsule 100 mg PO TID 11/27/24 11/27/24 11/26/24 09:00 History metformin 500 mg tablet 500 mg PO BID 11/27/24 11/27/24 11/26/24 09:00 History rivaroxaban 20 mg tablet (Xarelto) 20 mg PO BEDTIME 11/27/24 11/27/24 Unknown History clonidine HCl 0.1 mg tablet 0.1 mg PO DAILY 12/01/24 Unknown History ipratropium 0.5 mg-albuterol 3 mg 3 ml inhalation Q4H PRN Shortness 12/01/24 Unknown History (2.5 mg base)/3 mL nebulization Of Breath Or Wheezing soln Physical Exam 2 Vital Signs and Narrative: Vital Signs: Last Vital Signs Temp 98.6 F 12/01/24 19:38 Pulse 77 12/01/24 20:20 Resp 21 H 12/01/24 20:20 BP 148/57 H 12/01/24 19:38 Pulse Ox 96 12/01/24 19:38 O2 Del Method Room Air 12/01/24 19:38 BMI result Body Mass Index 44.3 Middle-aged female lying in bed in mild distress Neck supple Regular rate and rhythm, S1-S2 heard Bilateral inspiratory crackles and expiratory wheezing heard Abdomen soft nontender, no guarding, no rigidity Patient is awake, alert and oriented to self, place, time and person ; no focal motor deficit Psych: Normal mood Bilateral extremity with venous stasis changes Results Labs 12/01/24 18:49 12/01/24 18:49 Labs: Laboratory Results - last 24 hr 12/01/24 12/01/24 12/01/24 18:48 18:49 18:59 MCV 81.7 MCH 25.4 L MCHC 31.1 RDW 17.0 H Plt Count 274 MPV 9.8 Immature Gran % (Auto) 1.1 H Neut % (Auto) 68.7 Lymph % (Auto) 23.9 [place] % (Auto) 5.8 Eos % (Auto) 0.0 Baso % (Auto) 0.5 Lymph # (Auto) 1.3 [place] # (Auto) 0.3 Eos # (Auto) 0.0 Baso # (Auto) 0.0 Abs Immat Gran (auto) 0.06 H Absolute Neuts (auto) 3.8 Absolute Nucleated RBC 0.020 H Nucleated RBC % (auto) 0.4 H VBG pH 7.42 Cancelled VBG pCO2 54 Cancelled VBG pO2 33 Cancelled VBG HCO3 35 H Cancelled VBG O2 Saturation 52.0 Cancelled VBG Base Excess 9.3 Cancelled Anion Gap 14 Estim Creat Clear Calc 111.5 Estimated GFR > 60 Random Glucose 144 H Calcium 9.5 D Total Bilirubin 0.8 AST 79 H ALT 61 H Alkaline Phosphatase 112 B-Natriuretic Peptide 343 H Total Protein 7.7 Albumin 3.9 Urine Color Urine Appearance Urine pH Ur Specific [place] Urine Protein Urine Glucose (UA) Urine Ketones Urine Blood Urine Nitrite Ur Leukocyte Esterase Influenza Type A (PCR) NEGATIVE Influenza Type B (PCR) NEGATIVE RSV RNA Qual (PCR) NEGATIVE SARS-CoV-2 RNA (RT-PCR) NEGATIVE 12/01/24 19:40 MCV MCH MCHC RDW Plt Count MPV Immature Gran % (Auto) Neut % (Auto) Lymph % (Auto) [place] % (Auto) Eos % (Auto) Baso % (Auto) Lymph # (Auto) [place] # (Auto) Eos # (Auto) Baso # (Auto) Abs Immat Gran (auto) Absolute Neuts (auto) Absolute Nucleated RBC Nucleated RBC % (auto) VBG pH VBG pCO2 VBG pO2 VBG HCO3 VBG O2 Saturation VBG Base Excess Anion Gap Estim Creat Clear Calc Estimated GFR Random Glucose Calcium Total Bilirubin AST ALT Alkaline Phosphatase B-Natriuretic Peptide Total Protein Albumin Urine Color Yellow Urine Appearance Clear Urine pH 6.5 Ur Specific [place] <= 1.005 Urine Protein Negative Urine Glucose (UA) Negative Urine Ketones Negative Urine Blood Negative Urine Nitrite Negative Ur Leukocyte Esterase Negative Influenza Type A (PCR) Influenza Type B (PCR) RSV RNA Qual (PCR) SARS-CoV-2 RNA (RT-PCR) Assessment and Plan (1) Acute congestive heart failure: Status: Acute Plan This has a 58-year-old female with pertinent history of atrial flutter on Xarelto, chronic hypoxemic respiratory failure due to COPD on nocturnal BiPAP at baseline, congestive heart failure with preserved ejection fraction, history of DVT on anticoagulation, mixed hyperlipidemia, hypertension, chronic back pain, ypa-wouhbbn-blclozeyj type 2 diabetes mellitus, mood disorder, tobacco use disorder, obesity who presents to the emergency department evaluation of dyspnea. #. Acute decompensation of congestive heart failure with preserved ejection fraction: Will admit patient with IV diuresis. Strict I's and O's. Low-salt diet. Reassess volume status in a.m. #. Acute exacerbation of COPD in a patient with chronic hypoxemic respiratory failure: Scheduled and p.r.n. DuoNebs. Systemic steroids. Patient recently finished course of azithromycin for pleiotropic effect. Continue nocturnal BiPAP and home inhaler. #. Mixed hyperlipidemia: On statin #. Atrial flutter/history of DVT: On Xarelto. Patient also on amiodarone and rate-controlling agents #. Tobacco use disorder: Ordered nicotine patch #. Ehd-rwfrgzw-umkefnsky diabetes mellitus: Initiating Accu-Cheks with sliding scale insulin #. Obesity class 3: Counseled regarding diet and exercise #. Chronic back pain: On oral opioids Med rec pending DVT prophylaxis: Xarelto Full code. Discussed with patient at bedside Admit as inpatient and will require two night minimum hospital stay for IV diuresis, monitoring of respiratory status (as above), which is not possible in a lesser acute setting. Quality Stroke Does the patient have a stroke diagnosis?: No VTE Prior VTE?: No VTE Risk Level:: Medical - moderate - high VTE Device Contraindication: Treatment Not Indicated VTE Drug Contraindication: N/A - Med Ordered
[2024-12-01] MEDS: Furosemide 40 MG/4 ML VIAL IVPUSH (22:00)
--- NOTE | 2024-12-01 22:18 | MHC.EDTECH ---
Pt requesting purewick due to receiving lasix and wanting to get some sleep and not wake up to walk to the bathroom all night . This was placed for Pt, RN aware. Call pelaez within reach.
--- NOTE | 2024-12-01 22:51 | PHA.MEDREC ---
Addendum entered by Ministerio Davis RPh 12/01/24 22:59: MED REC CHECKED BY [facility] Original Note: Pharmacy Consult ? Medication Reconciliation Pharmacy has completed the medication reconciliation. Spoke with patient who was able to confirm her medications, had Duloxetine 40mg & 60mg Rx bottle and Gabapentin 100mg Rx bottle on hand. She also had a list on hand we were able to use to confirm the rest of the med rec. Patient confirmed she started the Azithroumycin 250mg tabs and Prednisone 10mg taper dose on Thursday. Patient is starting 3 tabs for 3 days of Prednisone 10mg tomorrow then taking 2 tabs for 3 days and 1 tab for 3 days and stopping after that. Patient confimred the Fentanyl patches every 3 days and confirmed she changed it toady.
--- NOTE | 2024-12-01 23:45 | ECG_ITS ---
Test Reason : TACHY Blood Pressure : */* mmHG Vent. Rate : 156 BPM Atrial Rate : * BPM P-R Int : * ms QRS Dur : 78 ms QT Int : 304 ms P-R-T Axes : * 34 270 degrees QTcB Int : 489 ms Atrial fibrillation with rapid ventricular response Nonspecific ST abnormality Abnormal QRS-T angle, consider primary T wave abnormality Abnormal ECG When compared with ECG of 01-Dec-2024 18:36, Rhythm change Referred By: Yong Welch Electronically Signed By: TERESO NICHOLAS
[2024-12-01] MEDS: dilTIAZem HCL 50 MG/10 ML VIAL 10 MG IVPUSH (23:55)
--- NOTE | 2024-12-01 23:57 | MHC.EDTECH ---
1000ml urine emptied from suction canister
[2024-12-02] VITALS (13 sets, daily range): BP systolic 101–149; BP diastolic 58–94; PULSE 54–152; RESP 16–30; TEMP 36.4–36.8; O2SAT 92–98
[2024-12-02] MEDS: Amiodarone/Dextrose 150 MG/100 ML PLAST..BAG 600 MG IV (00:08)
[2024-12-02] MEDS: Amiodarone HCL 900 MG in 0.9 % Sodium Chloride 500 ML 34.53 MG IVCONT (00:19)
[2024-12-02] MEDS: Rivaroxaban 20 MG TABLET PO (00:23)
--- NOTE | 2024-12-02 00:33 | PC.NURSE ---
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
[2024-12-02] MEDS: Metoprolol Tartrate 5 MG/5 ML VIAL IVPUSH ×2 (00:44→01:11)
--- NOTE | 2024-12-02 00:49 | PC.NURSE ---
per dr rosenthal pt okay to remain below 140s for the night. if consistently above 140 make md aware
--- NOTE | 2024-12-02 00:59 | PM.EVENT ---
Event Note Date of Service: 12/02/24 Event Note: Patient went into AFib with RVR. Initiated IV amiodarone. Closely monitor heart rate. Cardiology consult in a.m. Time Spent With Patient Time: Total time managing care of this patient today ____ minutes.
--- NOTE | 2024-12-02 01:01 | PC.NURSE ---
late entry- @2348 pt found to be 86% RA HR 162 aflutter admission discharge rn this rn and dr rosenthal to bedside pt placed on 3lpm nc pt medicated according to rodriguez
[2024-12-02] MEDS: 0.9 % Sodium Chloride Flush 3 ML SYRINGE IVFLUSH ×2 (01:11→07:43)
--- NOTE | 2024-12-02 03:58 | ECG_ITS ---
Test Reason : CONVERTED ON AMLODIPINE Blood Pressure : */* mmHG Vent. Rate : 57 BPM Atrial Rate : 57 BPM P-R Int : 168 ms QRS Dur : 80 ms QT Int : 468 ms P-R-T Axes : 98 31 30 degrees QTcB Int : 455 ms Sinus bradycardia Otherwise normal ECG When compared with ECG of 01-Dec-2024 23:47, Sinus rhythm has replaced Atrial fibrillation Vent. rate has decreased by 99 bpm Nonspecific T wave abnormality no longer evident in Anterior leads Referred By: Yong Welch Electronically Signed By: TERESO NICHOLAS
--- NOTE | 2024-12-02 04:23 | PC.NURSE ---
Pt converted to NSR at 63 at 3:39am. Has reported feeling fine since and has been ambulatory to [facility] w/o diff. Hospitalist was made aware and repeat EKG obtained. skin PWD. HASTINGS with exertion which patient states is baseline d/t long-term smoking.
--- OUTSIDE RECORDS SUMMARY | 2024-12-02 05:59 | XMS_ITS | Clinical Summary ---
Author Organization [facility] Address [address] [place] [address] Phone Care Team Providers Care Sanitary Landfill Supervisor Name Role Phone Dallas José DO Primary Care Provider Allergies Active Allergy Reactions Criticality Noted Date Comments Adhesive Tape-Silicones Rash Medium 09/26/2024 House Dust Mite Medium 09/26/2024 Medications acetaminophen (TYLENOL) 325 mg tablet Take 1 tablet (325 mg total) by mouth every 4 (four) hours if needed for moderate pain. 4 Active albuterol HFA (PROAIR HFA ; PROVENTIL HFA ; VENTOLIN HFA) 90 mcg/actuation inhaler Inhale 2 puffs by mouth 1 (one) time each day if needed. 2 Active DULoxetine (CYMBALTA) [address] capsule Take 2 capsules (40 mg total) by mouth 1 (one) time each day. 5 Active fentaNYL (DURAGESIC) 75 mcg/hr Place 1 patch on the skin every 3rd (third) day. Max Daily Amount: 1 patch 5 Active budesonide (RHINOCORT AQ) 32 mcg/actuation nasal spray Administer 1 spray into each nostril 1 (one) time each day. 4 Active buPROPion SR (WELLBUTRIN SR) 100 mg 12 hr tablet Take 1 tablet (100 mg total) by mouth 2 (two) times a day. 1 Active cloNIDine (CATAPRES) 0.1 mg tablet Take 1 tablet (0.1 mg total) by mouth 1 (one) time each day if needed. 4 Active Trelegy Ellipta 100-62.5-25 mcg inhaler Inhale 1 puff (100 mcg total) by mouth 1 (one) time each day. 4 Active gabapentin (NEURONTIN) 100 mg capsule Take 1 capsule (100 mg total) by mouth 3 (three) times a day. 5 Active ipratropium (ATROVENT) 21 mcg (0.03 %) nasal spray Administer 1 spray into each nostril 2 (two) times a day. 4 Active lamoTRIgine (LaMICtal) 200 mg tablet Take 1 tablet (200 mg total) by mouth 1 (one) time each day. 5 Active lamoTRIgine (LaMICtal) 25 mg tablet Take 1 tablet (25 mg total) by mouth 1 (one) time each day. 5 Active loratadine (CLARITIN) 10 mg tablet Take 1 tablet (10 mg total) by mouth 1 (one) time each day. 4 Active LORazepam (ATIVAN) 0.5 mg tablet Take 1 tablet (0.5 mg total) by mouth every 6 (six) hours if needed. Max Daily Amount: 2 mg Active metFORMIN (GLUCOPHAGE) 500 mg tablet Take 1 tablet (500 mg total) by mouth 1 (one) time each day with breakfast. 5 Active Xarelto 20 mg tablet Take 1 tablet (20 mg total) by mouth 1 (one) time each day with dinner. 5 Active topiramate (TOPAMAX) 25 mg tablet Take 1 tablet (25 mg total) by mouth 2 (two) times a day. Active Active Problems Problem Noted Date Diagnosed Date Chronic venous hypertension (idiopathic) with ulcer of left lower extremity (CODE) ([facility] V24, [facility] V28) 09/26/2024 Chronic venous hypertension (idiopathic) with other complications of right lower extremity 09/26/2024 Non-pressure chronic ulcer o f other part of left lower leg with fat layer exposed ([facility] V24, [facility] V28) 09/26/2024 PAD (peripheral artery disease) ([facility] V24) Type 2 diabetes mellitus wit h other skin ulcer (CODE) ([facility] V24, [facility] V28) 09/26/2024 Encounters Date Type Department Care Team Description 10/04/2024 2:15 PM EDT - 10/04/2024 11:59 PM EDT Hospital Encounter [facility] Ultrasound [address] [place] [address] Chronic venous hypertension (idiopathic) with ulcer of left lower extremity (CODE) ([facility] V24, [facility] V28); Chronic venous hypertension (idiopathic) with other complications of right lower extremity; Non-pressure chronic ulcer of other part of left lower leg with fat layer exposed ([facility] V24, [facility] V28); PAD (peripheral artery disease) ([facility] V24); Type 2 diabetes mellitus with other skin ulcer (CODE) ([facility] V24, [facility] V28) Discharge Disposition: Home or Self Care 09/29/2024 Telephone [facility] [address] [place] [phone] iGsela Kyle LPN Arterial ultrasound appointment at [facility] 09/28/2024 Telephone [facility] [address] [place] [phone] Alejandra Peña RN 09/28/2024 [facility] [address] [place] [phone] Gisela Kyle LPN Bilateral Venous Ultrasound [facility] 09/26/2024 8:00 AM EST Office Visit [facility] [address] [place] [phone] Ana Sanchez MD Chronic venous hypertension (idiopathic) with ulcer of left lower extremity (CODE) ([facility] V24, [facility] V28) (Primary Dx); Chronic venous hypertension (idiopathic) with other complications of right lower extremity; Non-pressure chronic ulcer of other part of left lower leg with fat layer exposed ([facility] V24, [facility] V28); PAD (peripheral artery disease) ([facility] V24); Type 2 diabetes mellitus with other skin ulcer (CODE) ([facility] V24, [facility] V28) from Last 3 Months Surgical History Surgery Date Site/Laterality Comments OTHER SURGICAL HISTORY PROCEDURE: ARTHROSCOPY PROCEDURE NEC; COMMENT: Knee surgery OTHER SURGICAL HISTORY 03/12/09 PROCEDURE: HISTORICAL PANNICULECTOMY LAPAROSCOPIC GASTRIC BANDING PROCEDURE: LAP ADJUSTABLE GASTRIC BAND Medical History Medical History Date Comments Edema 08/15/2005 DX:Edema Morbid obesity ([facility] V24, [facility] V28) 08/15/2005 DX:Morbid obesity ([facility]); COM MENT: lap band planned January 23 Other disorder of menstruati on and other abnormal bleeding from female genital tract 08/15/2005 DX:Other disorder of menstru ation and other abnormal bleeding from female genital tract Termination of (fetus) 08/15/2005 DX:Termination of (fetus) Unspecified asthma(493.90) 08/15/2005 DX:Un specified asthma(493.90) Anxiety state, unspecified 08/15/2005 DX:An xiety state, unspecified Other and unspecified noninf ectious gastroenteritis and colitis(558.9) DX:Other and unspec ified noninfectious gastroenteritis and colitis(558.9); COMMENT: IBS Generalized osteoarthrosis, unspecified site DX:Generalized osteoarthrosi s, unspecified site; COMMENT: Arthritis per patient DVT of lower extremity (deep venous thrombosis) ([facility] V24, [facility] V28) 04/13/2009 DX:DVT of lower extremity (deep venous thrombosis) ([facility]) Diabetes mellitus ([facility] V 24, [facility] V28) COPD (chronic obstructive pu lmonary disease) ([facility] V24, [facility] V28) Family History Medical History Relation Name Comments Diabetes Father Arthritis Mother Hypertension Mother Thyroid disease Sister 1 Arthritis Sister 2 1/2 sis with sc leroderma Relation Name Status Comments Father Mother Alive htn Sister 1 Sister 2 Sister 3 Social History Tobacco Use Types Packs/Day Years Used Date Smoking Tobacco: Every Day Cigarettes Smokeless Tobacco: Never Tobacco Cessation:Ready to Q uit: Not Asked; Counseling Given: Not Answered Alcohol Use Standard Drinks/Week Comments No 0 (1 standard drink = 0.6 oz pur e alcohol) Comments Unknown Sex and Gender Information Value Date Recorded Sex Assigned at Female 10/03/2024 12:56 PM EDT Legal Sex Female 8:28 PM EST Gender Identity Female 10/03/2024 12:56 PM EDT Sexual Orientation Not on file Obstetrics History Last Filed Vital Signs Vital Sign Reading Time Taken Comments Blood Pressure 133/77 09/26/2024 8:32 AM EST Pulse 79 09/26/2024 8:32 AM EST Temperature 36.9 ??C (98.4 ??F) 09/26/2024 8:32 AM ES T Respiratory Rate 20 09/26/2024 8:32 AM EST Oxygen Saturation 99% 09/26/2024 8:32 AM EST Inhaled Oxygen Concentration - - Weight 116 kg (255 lb) 09/26/2024 8:32 AM EST Height 160 cm (5' 3 ) 09/26/2024 8:32 AM EST Body Mass Index 45.17 09/26/2024 8:32 AM EST Plan of Treatment Health Maintenance Due Date Last Done Comments Breast Cancer Screening 1965 Diabetes: Annual GFR (Glomerular Filtration Rate) 1965 Diabetes: Annual Foot Exam 12/25/1973 Diabetes: Annual Retina Eye Exam 12/25/1973 Cervical Cancer Screening: Pap Smear 12/25/1984 Hepatitis B Vaccines (2 of 3 - 19+ 3-dose series) 07/12/2002 06/14/2002 Zoster Vaccines (1 of 2) 12/25/2013 DTaP,Tdap,and Td Vaccines (3 - Td or Tdap) 09/08/2021 09/08/2011, 12/17/2006 Cholesterol Screening (Lipid Panel) 06/28/2022 Colorectal Cancer Screening: Colonoscopy 06/28/2022 Depression Screening 06/28/2022 HIV Screening 06/28/2022 Hepatitis C Screening 06/28/2022 Medicare Annual Wellness Visit 06/28/2022 Social Influencers of Health Screening 06/28/2022 RSV Immunization Adult Patients (1 - Risk 60-74 years 1-dose series) 2023 COVID-19 Vaccine ( season) 2024 08/30/2021, 01/02/2021, 12/02/2020 Diabetes: Annual Urine Albumin-Creatinine Ratio (uACR) 09/26/2024 Diabetes: Blood Sugar Control Test (HGBA1C) 09/26/2024 Hypertension/CHF/CAD Annual BMP Blood Test 10/04/2024 Influenza Vaccine (Season Ended) 2025 06/03/2023, 05/05/2022, 06/25/2021, Additional history exists Pneumococcal Vaccine: 50+ Years Completed 06/03/2023, 10/08/2011 Pneumococcal Vaccine: Pediatrics (0 to 5 Years) and At-Risk Patients (6 to 64 Years) Completed 06/03/2023, 10/08/2011 HIB Vaccines Aged Out No longer eligi ble based on patient's age to complete this topic HPV Vaccines Aged Out No longer eligi ble based on patient's age to complete this topic Hepatitis A Vaccines Aged Out No long er eligible based on patient's age to complete this topic IPV Vaccines Aged Out No longer eligi ble based on patient's age to complete this topic MMR Vaccines Aged Out No longer eligi ble based on patient's age to complete this topic Meningococcal ACWY Vaccine Aged Out N o longer eligible based on patient's age to complete this topic Meningococcal B Vaccine Aged Out No l onger eligible based on patient's age to complete this topic RSV Immunization Patients Under 20 months Aged Out No longer eligible based on patient's age to complete this topic Varicella Vaccines Aged Out No longer eligible based on patient's age to complete this topic Goals Goal Patient Goal Type Associated Problems Recent Progress Patient-Stated? Author Decrease Wound Volume by X% by date (in notes) Care Plan Impaired Tissue Navya Caal RN Patient and Caregiver Understand Wound Care Education Care Plan Impaired Tissue Navya Caal RN Wound volume breakdown reduced by X% by week 4 Care Plan Impaired Tissue Navya Caal RN Wound volume breakdown reduced by X% by week 8 Care Plan Impaired Tissue aNvya Caal RN Wound volume breakdown reduced by X% by week 12 Care Plan Impaired Tissue Navya Caal RN Quit using tobacco (cigarettes, smokeless, etc) Care Plan Education needed on impact of smoking on wound Navya Caal RN Reduce tobacco use (cigarettes, smokeless, etc) Care Plan Education needed on impact of smoking on wound Navya Caal RN Decrease Wound Volume by X% by date (in notes) Care Plan Education needed on impact of smoking on wound No Navya Trejo, RN Patient and Caregiver Understand Wound Care Education Care Plan Education needed related to ulceration/compr omised skin integrity. No Navya Trejo barber shop manager Procedure Name Priority Date/Time Associated Diagnosis Comments VAS US DUPLEX LOWER EXT ARTERY BILAT Routine 10/04/2024 3:23 PM EDT Chronic venous hypertension (idiopathic) with ulcer of left lower extremity (CODE) (CMS/HCC V24, CMS/HCC V28) Chronic venous hypertension (idiopathic) with other complications of right lower extremity Non-pressure chronic ulcer of other part of left lower leg with fat layer exposed (CMS/HCC V24, CMS/HCC V28) PAD (peripheral artery disease) (CMS/HCC V24) Type 2 diabetes mellitus with other skin ulcer (CODE) (CMS/HCC V24, CMS/HCC V28) DEBRIDEMENT Routine 09/26/2024 8:00 AM EST Chronic venous hypertension (idiopathic) with ulcer of left lower extremity (CODE) (CMS/HCC V24, CMS/HCC V28) Non-pressure chronic ulcer of other part of left lower leg with fat layer exposed (CMS/HCC V24, CMS/HCC V28) PAD (peripheral artery disease) (CMS/HCC V24) from Last 3 Months Results * Vascular US duplex lower extremity arteries bilateral (10/04/2024 3:23 PM EDT) Anatomical Region Laterality Modality Vascular, Abdomen Ultrasound 10/04/2024 3:44 PM EDT Impressions 10/04/2024 4:23 PM EDT A bandage obscures the anterior and posterior tibial artery in the lower leg on the left. No visible hemodynamically significant stenosis or occlusion. -------- FINAL REPORT -------- Dictated By: Rustam Tucker Dictated Date: 10/04/2024 15:44 ET Assigned Physician: Rustam Tucker Reviewed and Electronically Signed By: Rustam Tucker Signed Date: 10/04/2024 16:23 ET Workstation ID: [id number] Transcribed By: Self Edit Transcribed Date: 10/04/2024 15:44 ET Narrative 10/04/2024 4:23 PM EDT PROCEDURE: Bilateral lower extremity arterial duplex ultrasound. HISTORY: Rest Pain Ulceration peripheral vascular disease. TECHNIQUE: Grayscale, color Doppler, and spectral Doppler ultrasound evaluation of the arteries of both lower extremities. COMPARISON: None. FINDINGS: Grayscale imaging demonstrates mild multifocal atherosclerotic plaque. Right lower extremity: Triphasic wave forms in the common femoral artery with peak systolic velocity of 215 cm/s. ??Triphasic waveforms in the profunda branch with velocities of 232 cm/s. ??Triphasic waveforms throughout the SFA without a focally elevated peak systolic velocity. ??Biphasic waveforms in the popliteal artery, also without elevated velocities. ??Biphasic waveforms in the proximal PROJECT GEOLOGIST, degrading to monophasic in the distal PROJECT GEOLOGIST, but no elevated velocity. ??Monophasic waveforms in the anterior tibial artery and dorsalis pedis with no elevated velocity. Triphasic waveforms in the left common femoral artery with a peak systolic velocity of 205 cm/s. ??Multiphasic waveforms in the profunda branch and throughout the SFA and popliteal artery without a focally elevated velocity. ??Monophasic waveforms in the proximal and mid PROJECT GEOLOGIST. ??Monophasic waveforms in the proximal and mid SAIMA. ??The vessels of the lower leg are secured by a bandage. ??Monophasic waveforms in the dorsalis pedis. Procedure Note Rustam Tucker MD - 10/04/2024 PROCEDURE: Bilateral lower extremity arterial duplex ultrasound. HISTORY: Rest Pain Ulceration peripheral vascular disease. TECHNIQUE: Grayscale, color Doppler, and spectral Doppler ultrasoundevaluation of the arteries of both lower extremities. COMPARISON: None. FINDINGS: Grayscale imaging demonstrates mild multifocal atherosclerotic plaque. Right lower extremity: Triphasic wave forms in the common femoral arterywith peak systolic velocity of 215 cm/s. Triphasic waveforms in theprofunda branch with velocities of 232 cm/s. Triphasic waveformsthroughout the SFA without a focally elevated peak systolic velocity.Biphasic waveforms in the popliteal artery, also without elevatedvelocities. Biphasic waveforms in the proximal PROJECT GEOLOGIST, degrading tomonophasic in the distal PROJECT GEOLOGIST, but no elevated velocity. Monophasicwaveforms in the anterior tibial artery and dorsalis pedis with noelevated velocity. Triphasic waveforms in the left common femoral artery with a peak systolicvelocity of 205 cm/s. Multiphasic waveforms in the profunda branch andthroughout the SFA and popliteal artery without a focally elevatedvelocity. Monophasic waveforms in the proximal and mid PROJECT GEOLOGIST. Monophasicwaveforms in the proximal and mid SAIMA. The vessels of the lower leg aresecured by a bandage. Monophasic waveforms in the dorsalis pedis. IMPRESSION: A bandage obscures the anterior and posterior tibial artery in the lowerleg on the left. No visible hemodynamically significant stenosis or occlusion. -------- FINAL REPORT -------- Dictated By: Rustam Tucker Dictated Date: 10/04/2024 15:44 ET Assigned Physician: Rustam Tucker Reviewed and Electronically Signed By: Rustam Tucker Signed Date: 10/04/2024 16:23 ET Workstation ID: [id number] Transcribed By: Self Edit Transcribed Date: 10/04/2024 15:44 ET us Ana Sanchez MD CV VASCULAR PROCEDURES Fi nal Result * Debridement Venous Ulcer (cluster) Left;Lower Leg (09/26/2024 8:00 AM EST) Narrative Ana Sanchez MD - 09/26/2024 8:00 AM EST Ana Sanchez MD ? 09/26/2024 12:39 PM Debridement Venous Ulcer (cluster) Left;Lower Leg Performed by: Ana Sanchez MD Authorized by: Ana Sanchez MD ??Associated wounds: Wound Venous Ulcer 09/26/24 Leg Left;Lower Consent: ??Consent obtained: ??Verbal ??Consent given by: ??Patient ??Risks discussed: Yes ?? Time out: Immediately prior to the procedure a time out was called ?? Time out performed at: ??09/26/2024 9:54 AM Debridement Details: ??Performed by: ??Physician ??Type: selective ?Pain control: ??Lidocaine 5% ??Pain control administration: topical anesthesia ?Severity of Tissue Pre Debridement: ??Fat layer exposed ??Severity of Tissue Post Debridement: ??Fat layer exposed ??Time taken: ??09/26/2024 8:45 AM ??Length (cm): ??13 (cluster of 5-6) ??Width (cm): ??17 ??Depth (cm): ??0.1 ??Area (cm^2): ??221 ??Time taken: ??09/26/2024 8:46 AM ??Length (cm): ??13 ??Width (cm): ??17 ??Depth (cm): ??0.1 ??Percent Debrided (%): ??25 ??Surface Area (cm^2): ??221 ??Area Debrided (cm^2): ??55.25 ??Volume (cm^3): ??22.1 ??Devitalized tissue debrided: fibrin and slough ?Devitalized tissue debrided comment: ??Devitalized skin ??Instrument: ??Blade and forceps ??Amount of bleeding: small ?Hemostasis obtained with: ??Pressure ??Procedural pain: ??0 ??Post-procedural pain: ??0 ??Response to treatment: ??Procedure was tolerated well us Ana Sanchez MD IN CLINIC/BEDSIDE ORDERAB LES Final Result from Last 3 Months Additional Health Concerns Active Problems Noted Date Diagnosed Date Impaired Tissue 09/26/2024 Education needed on impact of smoking on wound 0 09/26/2024 Education needed related to ulceration/compromised skin integrity. 09/26/2024 Insurance [facility] MEDIC[facility] Member Subscriber Plan / Payer (Ef fective 2019-Present) Name:Shruthi Orosco Relation to Subscriber:Self Name:Shruthi Orosco Payer ID:[id number] Group ID:[id number] Type:Not on file Address: [place] [address] [place] [phone] Care Teams Sanitary Landfill Supervisor Relationship Specialty Start Date End Date [place] José DO [address] [place] [phone] PCP - General Family Medicine 09/26/24
--- OUTSIDE RECORDS SUMMARY | 2024-12-02 05:59 | XMS_ITS ---
Care Plan Created on: December 02, 2024 Kwesi, Shruthi : 1965 Sex: Female Author Organization 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 Name Role Phone [place] José DO Primary Care Provider [phone] Active Problems Problem Noted Date Diagnosed Date Chronic venous hypertension (idiopathic) with ulcer of left lower extremity (CODE) ([facility] V24, [facility] V28) 09/26/2024 Chronic venous hypertension (idiopathic) with other complications of right lower extremity 09/26/2024 Non-pressure chronic ulcer o f other part of left lower leg with fat layer exposed ([facility] V24, [facility] V28) 09/26/2024 PAD (peripheral artery disease) ([facility] V24) Type 2 diabetes mellitus wit h other skin ulcer (CODE) ([facility] V24, [facility] V28) 09/26/2024 Additional Health Concerns Active Problems Noted Date Diagnosed Date Impaired Tissue 09/26/2024 Education needed on impact of smoking on wound 0 09/26/2024 Education needed related to ulceration/compromised skin integrity. 09/26/2024 Goals Goal Patient Goal Type Associated Problems Recent Progress Patient-Stated? Author Decrease Wound Volume by X% by date (in notes) Care Plan Impaired Tissue Navya Caal RN Patient and Caregiver Understand Wound Care Education Care Plan Impaired Tissue No Navya Trejo balloon design printer volume breakdown reduced by X% by week 4 Care Plan Impaired Tissue No Navya Trejo balloon design printer volume breakdown reduced by X% by week 8 Care Plan Impaired Tissue No Lalitot, Navya E, balloon design printer volume breakdown reduced by X% by week [...] of smoking on wound Navya Caal RN Patient and Caregiver Understand Wound Care Education Care Plan Education needed related to ulceration/compr omised skin integrity. No Navya Trejo RN Interventions Care Plan Interventions Intervention Entry Date Outcome Provide caregiver with wound care procedure information 09/26/2024 Educate caregiver on proper wound care procedures 09/26/2024 Give provider list of wound care supplies 09/26/2024 Refill wound care supplies 09/26/2024 Send Wound Care Supplies 09/26/2024 Give provider list of wound care supplies 09/26/2024 Refill wound care supplies 09/26/2024 Send Wound Care Supplies 09/26/2024 Provide caregiver with wound care procedure information 09/26/2024 Educate caregiver on proper wound care procedures 09/26/2024 Document patient eligibility for HBO 09/26/2024 Assess patient for HBO treatment 09/26/2024 Record wound depth 09/26/2024 Record total wound area 09/26/2024 Measure wound progress 09/26/2024 Create an action plan identifying patient strengths and supports 09/26/2024 Establish quit date with patient 09/26/2024 Discuss prior cessation attempts 09/26/2024 Discuss preferred method of cessation and plan 09/26/2024 Discuss barriers to smoking cessation 09/26/2024 Discuss smoking status with patient 09/26/2024 Create an action plan identifying patient strengths and supports 09/26/2024 Establish quit date with patient 09/26/2024 Discuss prior cessation attempts 09/26/2024 Discuss preferred method of cessation and plan 09/26/2024 Discuss barriers to smoking cessation 09/26/2024 Discuss smoking status with patient 09/26/2024 Provide caregiver with wound care procedure information 09/26/2024 Educate caregiver on proper wound care procedures 09/26/2024 Document patient eligibility for HBO 09/26/2024 Assess patient for HBO treatment 09/26/2024 Record wound depth 09/26/2024 Record total wound area 09/26/2024 Measure wound progress 09/26/2024 Provide caregiver with wound care procedure information 09/26/2024 Educate caregiver on proper wound care procedures 09/26/2024 Document patient eligibility for HBO 09/26/2024 Assess patient for HBO treatment 09/26/2024 Record wound depth 09/26/2024 Record total wound area 09/26/2024 Measure wound progress 09/26/2024 Provide caregiver with wound care procedure information 09/26/2024 Educate caregiver on proper wound care procedures 09/26/2024 Document patient eligibility for HBO 09/26/2024 Assess patient for HBO treatment 09/26/2024 Record wound depth 09/26/2024 Record total wound area 09/26/2024 Measure wound progress 09/26/2024 Provide caregiver with wound care procedure information 09/26/2024 Educate caregiver on proper wound care procedures 09/26/2024 Give provider list of wound care supplies 09/26/2024 Refill wound care supplies 09/26/2024 Give provider list of wound care supplies 09/26/2024 Refill wound care supplies 09/26/2024 Provide caregiver with wound care procedure information 09/26/2024 Educate caregiver on proper wound care procedures 09/26/2024 Record wound depth 09/26/2024 Record total wound area 09/26/2024 Measure wound progress 09/26/2024 Related Goals and Interventions Goal Associated Intervent ions Decrease Wound Volume by X% by date (in notes) Give provider list of wound care supplie s; Refill wound care supplies; Provide caregiver with wound care procedure information; Educate caregiver on proper wound care procedures; Record wound depth; Record total wound area; Measure wound progress Patient and Caregiver Unders tand Wound Care Education Provide caregiver with wound care proced ure information; Educate caregiver on proper wound care procedures; Give provider list of wound care supplies; Refill wound care supplies Wound volume breakdown reduc ed by X% by week 4 Provide caregiver with wound care proced ure information; Educate caregiver on proper wound care procedures; Document patient eligibility for HBO; Assess patient for HBO treatment; Record wound depth; Record total wound area; Measure wound progress Wound volume breakdown reduc ed by X% by week 8 Provide caregiver with wound care proced ure information; Educate caregiver on proper wound care procedures; Document patient eligibility for HBO; Assess patient for HBO treatment; Record wound depth; Record total wound area; Measure wound progress Wound volume breakdown reduc ed by X% by week 12 Provide caregiver with wound care proced ure information; Educate caregiver on proper wound care procedures; Document patient eligibility for HBO; Assess patient for HBO treatment; Record wound depth; Record total wound area; Measure wound progress Quit using tobacco (cigarett es, smokeless, etc) Create an action plan identifying patien t strengths and supports; Establish quit date with patient; Discuss prior cessation attempts; Discuss preferred method of cessation and plan; Discuss barriers to smoking cessation; Discuss smoking status with patient Reduce tobacco use (cigarett es, smokeless, etc) Create an action plan identifying patien t strengths and supports; Establish quit date with patient; Discuss prior cessation attempts; Discuss preferred method of cessation and plan; Discuss barriers to smoking cessation; Discuss smoking status with patient Decrease Wound Volume by X% by date (in notes) Give provider list of wound care supplie s; Refill wound care supplies; Send Wound Care Supplies; Provide caregiver with wound care procedure information; Educate caregiver on proper wound care procedures; Document patient eligibility for HBO; Assess patient for HBO treatment; Record wound depth; Record total wound area; Measure wound progress Patient and Caregiver Unders tand Wound Care Education Provide caregiver with wound care proced ure information; Educate caregiver on proper wound care procedures; Give provider list of wound care supplies; Refill wound care supplies; Send Wound Care Supplies
--- OUTSIDE RECORDS SUMMARY | 2024-12-02 05:59 | XMS_ITS | Data Portability ---
Author Organization [place] - [facility], [employer] Address [address] [place] [id number] Care Team Providers Care Doughnut Maker Name Role Phone SHERRY GUEVARA Sales Office Assistant Unavailable Assessment Encounter Date Assessment Date Assessment LastModified by Organization Details LastModified Time 05/20/2024 05/20/2024 Chief complaint Establishing care History of present illness - Spinal cord stimulator surgery in January 2024 - Last saw ship painter helper before surgery - No upcoming appointment with ship painter helper - Last chest CT for lung cancer surveillance in June 2023 - Last mammogram in July 2023 at [facility] Past medical history - Lung cancer surveillance - Anxiety - Mood disorder - Diabetes - Restless leg syndrome - Heart condition treated with ablation Past surgical history - Spinal cord stimulator surgery in January 2024 - Hysterectomy - Two knee replacements - Two spinal cord stimulators Past obstetric history Hysterectomy Social history - Current smoker, half a pack per day - No alcohol consumption - Past use of cannabis gummies - No history of intranasal or IV drug use - On disability for back condition and other surgeries Current medications - Clonidine 0.1 mg for anxiety - Duloxetine 80 mg daily (60 mg and 20 mg) - Lamotrigine for mood - Metformin for diabetes - Metoprolol extended release 50 mg for restless leg syndrome (discontinued) - Ropinirole for restless leg syndrome - Lovastatin 10 mg - Xarelto 20 mg daily Immunizations - No pneumonia shot or flu shot this year - No COVID booster Imaging results - Last chest CT for lung cancer surveillance in June 2023 - Last mammogram in July 2023 at [facility] Plan - Need for pneumococcal vaccine, influenza vaccine, and COVID-19 booster vaccine - Continue current medications Appointments Follow-up with Dr. Kearns scheduled for end of April 2024 ICD-10 codes (6) - Anxiety disorder, unspecified [F41.9] - Unspecified mood [affective] disorder [F39] - Type 2 diabetes mellitus without complications [E11.9] - Restless legs syndrome [G25.81] - Heart disease, unspecified [I51.9] - Encounter for immunization [Z23] [email or web address] Not available 05/20/2024 14:46:52 06/15/2024 06/15/2024 Chronic Back Uriah n: - Assessment: Chronic back pain with spinal nerve damage and multiple herniated discs. Pain level remains above 7 despite spinal cord stimulator. - Plan: Initiate fentanyl pain patches to manage chronic pain. Start at a low dose, change every 3 days, and follow up closely to adjust dosage as needed. - Follow-up: Follow-up appointment scheduled on the to assess the effectiveness of the fentanyl patches and make necessary adjustments. - Education: Educate patient on the use of fentanyl patches, potential side effects, and the importance of adherence to the prescribed regimen. Smoking Cessation: - Assessment: Discussed smoking cessation with the patient. - Plan: Provide resources and support for quitting smoking. 3 minutes spent on counseling including review of history of nicotine dependence and behavioral and pharmacological treatment options. Not available 06/15/2024 10:31:47 07/04/2024 07/04/2024 The following ti me was spent on todays E/M encounter, including preparing for the visit, reviewing results, seeing the patient, and documentation on the date of service of the encounter: 20 75121 15-29 minutes 76327 30-44 minutes 19140 45-59 minutes 22146 60-74 minutes 72086 10-19 minutes 06349 20-29 minutes 68198 30-39 minutes 74459 40-54 minutes Not available 07/04/2024 10:33:50 08/03/2024 08/03/2024 The following ti me was spent on todays E/M encounter, including preparing for the visit, reviewing results, seeing the patient, and documentation on the date of service of the encounter: 40 00203 15-29 minutes 60978 30-44 minutes 41833 45-59 minutes 03235 60-74 minutes 64994 10-19 minutes 37349 20-29 minutes 92334 30-39 minutes 06093 40-54 minutes [email or web address] Not available 08/05/2024 12:35:02 09/13/2024 09/13/2024 The following ti me was spent on todays E/M encounter, including preparing for the visit, reviewing results, seeing the patient, and documentation on the date of service of the encounter: 45 97521 15-29 minutes 58619 30-44 minutes 87081 45-59 minutes 74969 60-74 minutes 10480 10-19 minutes 38245 20-29 minutes 31731 30-39 minutes [id number] 40-54 minutes Not available 09/13/2024 13:04:58 Plan of Treatment Reminders Order Date Submit Date Provider Last Modified By Organization Details Last Modified Time Details Appointments FOLLOW UP 2024 01:30P GIOVANNA DIA Not available Not available Not available Hospital Discharge 2024 01:10P GIOVANNA DIA Not available Not available Not available Lab HbA1c (hemoglob in A1c), blood 2024 025 COLIN [facility] (Centralized Electronic Ordering - All Locations), Patient Can Go To The Location Of Their Choice, 10/22/2024 12:05:40 CMP, serum or plasma 2024 025 COLIN [facility] (Centralized Electronic Ordering - All Locations), Patient Can Go To The Location Of Their Choice, 10/22/2024 12:05:39 microalbu min/creat inine, mass ratio, urine 2024 025 COLIN [facility] (Centralized Electronic Ordering - All Locations), Patient Can Go To The Location Of Their Choice, 10/22/2024 12:05:39 HbA1c (hemoglob in A1c), blood 2024 025 COLIN [facility] (Centralized Electronic Ordering - All Locations), Patient Can Go To The Location Of Their Choice, 08/03/2024 10:43:07 CMP, serum or plasma 2024 025 COLIN [facility] (Centralized Electronic Ordering - All Locations), Patient Can Go To The Location Of Their Choice, 08/03/2024 10:43:08 microalbu min/creat inine, mass ratio, urine 2024 025 COLIN [facility] (Centralized Electronic Ordering - All Locations), Patient Can Go To The Location Of Their Choice, [id number] 08/03/2024 10:43:07 HbA1c (hemoglob in A1c), blood 2023 024 COLIN [facility] (Centralized Electronic Ordering - All Locations), Patient Can Go To The Location Of Their Choice, [id number] 05/20/2024 14:54:29 basic metabolic 1998 panel, serum or plasma 2023 024 COLIN [facility] (Centralized Electronic Ordering - All Locations), Patient Can Go To The Location Of Their Choice, [id number] 05/20/2024 14:54:29 Referral wound care referral - urgent for multiple lower extremity venous stasis ulcers [address] [facility], [address] [place], [address], 09/21/2024 08:45:20 vascular surgeon referral - Venous stasis ulcers, [facility] ordered [address] Vascular Scheduling Dept, [address] [address], [place], [address], 09/14/2024 11:17:52 occupatio nal therapist referral - cervical disc disease left hand weakness [address] [facility] [place] [facility], [address], [place], [address], 08/17/2024 15:42:41 physical therapist referral [address] [facility], [address] [place], [address], 07/05/2024 10:09:12 Procedures None recorded. Surgeries None recorded. Imaging ankle brachial index, complete 2024 025 [email or web address] [facility] Sched[facility], [address], [place], [address], 09/15/2024 11:00:31 Medication Orders fentanyl 75 mcg/hr transderm al patch 2024 025 [id number], [address], [place], [id number], 08/03/2024 10:43:21 fentanyl 37.5 mcg/hour transderm al patch 2023 025 [facility]145, [address], [place], [phone], 08/03/2024 10:19:19 fentanyl 12 mcg/hr transderm al patch 2023 024 [facility][id number], [address] [place] [address], [id number], 07/04/2024 10:07:46 Patient TargetsNo targets recorded. Patient InstructionsNo instructions recorded. Reason for Referral Physical Therapist Referral for Degeneration of cervical intervertebral disc Referring Physician: Viky Perez, Internal Medicine, Encounter Date: 07/04/2024 Occupational Therapist Refer ral for Chronic back pain cervical disc disease left hand weakness Referring Physician: Viky Perez, Internal Medicine, Encounter Date: 08/03/2024 urgent for multiple lower ex tremity venous stasis ulcers Referring Physician: Viky Perez Internal Medicine, Encounter Date: 09/13/2024 Vascular Surgeon Referral fo r Peripheral vascular disease Venous stasis ulcers, [facility] ordered Referring Physician: Viky Perez, Internal Medicine, Encounter Date: 09/13/2024 Results Created Date Observation Date Name Description Value Unit Range Abnormal Flag Note LastModifiedBy Organization Detail LastModifiedTime 10/21/1910/20/2024 COMP. METAB OLIC PANEL (14) glucose 93 mg/dL 70-99 normal Not Available [facility] ([facility]) [address] [facility], [place], [address], 10/22/2024 12:05:39 03/27/20 25 10/20/2024 COMP. METAB OLIC PANEL (14) BUN 12 mg/dL 8-27 normal Not Available [facility] ([facility]) [address] [facility] [place], [address], 10/22/2024 12:05:39 10/21/19 25 10/20/2024 COMP. METAB OLIC PANEL (14) creatinine 0.66 mg/dL 0.57-1 .00 normal Not Available [facility] ([facility]) [address] [facility], [place], [address], 10/22/2024 12:05:39 10/21/19 25 10/20/2024 COMP. METAB OLIC PANEL (14) eGFR 100 mL/mi n/1.7 3 >59 normal Not Available [facility] ([facility]) [address] [facility], [place], [address], 10/22/2024 12:05:39 10/21/19 25 10/20/2024 COMP. METAB OLIC PANEL (14) BUN/creatini ne ratio 18 12-28 normal Not Available [facility] ([facility]) [address] [facility], [place], [address], 10/22/2024 12:05:39 10/21/19 25 10/20/2024 COMP. METAB OLIC PANEL (14) sodium 138 mmol/ L 134-14 4 normal Not Available [facility] ([facility]) [address] [place], [address], 10/22/2024 12:05:39 10/21/19 25 10/20/2024 COMP. METAB OLIC PANEL (14) potassium 4.9 mmol/ L 3.5-5. 2 normal Not Available [facility] ([facility]) [address] [facility], [place], [address], 10/22/2024 12:05:39 10/21/19 25 10/20/2024 COMP. METAB OLIC PANEL (14) chloride 100 mmol/ L 96-106 normal Not Available [facility] ([facility]) [address] [facility] [place], [address], 10/22/2024 12:05:39 10/21/19 25 10/20/2024 COMP. METAB OLIC PANEL (14) carbon dioxide, total 24 mmol/ L 20-29 normal Not Available [facility] ([facility]) [address] [facility] [place], [address], 10/22/2024 12:05:39 10/21/19 25 10/20/2024 COMP. METAB OLIC PANEL (14) calcium 9.4 mg/dL 8.7-10 .3 normal Not Available [facility] ([facility]) [address] [facility] [place], [address], 10/22/2024 12:05:39 10/21/19 25 10/20/2024 COMP. METAB OLIC PANEL (14) protein, total 6.9 g/dL 6.0-8. 5 normal Not Available [facility] ([facility]) [address] [facility] [place], [address], 10/22/2024 12:05:39 10/21/19 25 10/20/2024 COMP. METAB OLIC PANEL (14) albumin 3.9 g/dL 3.8-4. 9 normal Not Available [facility] ([facility]) [address] [facility] [place], [address], 10/22/2024 12:05:39 10/21/19 25 10/20/2024 COMP. METAB OLIC PANEL (14) globulin, total 3.0 g/dL 1.5-4. 5 Not Available [facility] ([facility]) [address] [facility] [place], [address], 10/22/2024 12:05:39 10/21/19 25 10/20/2024 COMP. METAB OLIC PANEL (14) bilirubin, total 0.3 mg/dL 0.0-1. 2 normal Not Available [facility] ([facility]) [address] [place], [address], 10/22/2024 12:05:39 10/21/19 25 10/20/2024 COMP. METAB OLIC PANEL (14) alkaline phosphatase 119 IU/L 44-121 normal Not Available [facility] ([facility]) [address] [place], [address], 10/22/2024 12:05:39 10/21/19 25 10/20/2024 COMP. METAB OLIC PANEL (14) AST (SGOT) 24 IU/L 0-40 normal Not Available [facility] ([facility]) [address] [place], [address], 10/22/2024 12:05:39 10/21/19 25 10/20/2024 COMP. METAB OLIC PANEL (14) ALT (SGPT) 21 IU/L 0-32 normal Not Available [facility] ([facility]) [address] [place], [address], 10/22/2024 12:05:39 10/21/19 25 10/22/2024 ALBUM IN/CR EAT RATIO , RANDO M UR creatinine, urine 175.8 mg/dL not estab. normal Not Available [facility] ([facility]) [address] [place], [address], 10/22/2024 12:05:39 10/21/19 25 10/22/2024 ALBUM IN/CR EAT RATIO , RANDO M UR albumin, urine 22.1 ug/mL not estab. Not Available [facility] ([facility]) [address] [place], [address], 10/22/2024 12:05:39 10/21/19 25 10/22/2024 ALBUM IN/CR EAT RATIO , RANDO M UR alb/creat ratio 13 mg/g_ creat 0-29 Alicia l: 0 - 29 Moder ately incre ased: 30 - 300 Sever johanna incre ased: >300 Not Available [facility] ([facility]) [address] [facility], [place], [address], 10/22/2024 12:05:39 10/21/19 25 10/20/2024 HEMOG LOBIN A1C hemoglobin A1C 7.4 % 4.8-5. 6 above high normal Predi abete s: 5.7 - 6.4 Diabe kavita: >6.4 Glyce ramona contr ol for adult s with diabe kavita: <7.0 Not Available [facility] ([facility]) [address] [facility], [place], [address], 10/22/2024 12:05:40 10/20/19 25 10/19/2024 arter ial study , lower extre mity, compl ete No observ ation record ed. [email or web address] [facility] (P[facility]) [address] [place], [address], 10/24/2024 09:08:08 10/25/19 25 10/21/2024 imagi ng/di agnos tic resul t No observ ation record ed. [facility] [address] [place], [address], 10/24/2024 11:52:02 Result Notes None recorded. Problems Name Problem SNOMED Code Status Onset Date Resolution Date Notes Provider Name and Address Organization Details Recorded Time Bilateral arthritis of knees 640148280908 9108 Active Concepción Wayne null, [place] [facility] 13:16:30 Bipolar disorder 43439551 Active Bipolar disorder NOS Concepción [place] null, [place] [facility] 13:16:43 Osteoarth ritis 467588612 Active DJD (degenera tive joint disease), lumbar Concepción [place] null, [place] [facility] 13:17:01 Fibromyal jovani 183064409 Active Concepción Wayne [place] [facility] 13:17:13 Posttraum atic stress disorder 79500787 Active Concepción Wayne [place] [facility] 4 13:17:31 Spinal stenosis of lumbar region 37904696 Active Concepción Wayne [place] [facility] 4 13:17:43 Thyroid nodule 735203552 Active Concepción Wayne [place] [facility] 4 13:17:52 Urinary incontine nce 009377822 Active Concepción Wayne [place] [facility] 4 13:18:03 Venous insuffici ency of leg 438127012 Active Concepción Wayne [place] [facility] 4 13:18:13 Anticoagu lant therapy Active Anticoagu lant long-term use Concepción [place], [place] [facility] 4 13:18:28 Bursitis of right shoulder 403217411809 107 Active Concepción [place] [facility] 4 14:00:26 Cervical radiculop athy 06496006 Active Cervical radiculop athy - left Concepción [place] [facility] 4 14:00:42 Chronic back pain 426057606 Active Concepción [place] [facility] 4 14:00:52 Celluliti s 072900791 Active Concepción Wayne [place] [facility] 4 14:01:17 Deep venous thrombosi s of lower extremity 754870757 Active Chronic deep vein thrombosi s (DVT) Concepción [place] [facility] 4 14:01:31 Chronic diastolic heart failure 748516065 Active Concepción [place] [facility] 4 14:01:41 Chronic obstructi ve pulmonary disease 01289506 Active Concepción [place] [facility] 4 14:01:53 Chronic pain syndrome 210926010 Active Concepción [place] [facility] 4 14:02:02 Nicotine dependenc e 66602374 Active Cigarette nicotine dependenc e with nicotine- induced disorde Concepción [place] [facility] 4 14:02:32 Epistaxis care Active Concepción [place] [facility] 4 14:04:19 Tremor 82282164 Active Essential tremor Concepción [place] [facility] 4 14:04:34 Fatigue 41149141 Active Concepción [place] [facility] 4 14:05:08 Hyperpara thyroidis m 60013121 Active Concepción [place] [facility] 4 14:06:31 Long-term current use of opiate analgesic drug 424859706124 108 Active Concepción [place] [facility] 4 14:06:43 Low back pain 929316975 Active Concepción [place] [facility] 4 14:07:58 Lymphedem a 328524855 Active Concepción [place] [facility] 4 14:08:33 Nausea 029909711 Active Concepción [place] [facility] 4 14:08:50 Overactiv e urinary bladder 203101250 Active Concepción [place] [facility] 4 14:09:04 Paroxysma l atrial flutter 903500567 Active Concepción [place] [facility] 4 14:09:24 Somatic pain 42940790 Active Persisten t moderate somatic symptom disorder with predomina nt pain Concepción [place] [facility] 4 08:05:45 Restless legs 35945563 Active Concepción [place] [facility] 4 08:06:07 Recurrent bacterial cystitis 799029431 Active Concepción [place] [facility] 4 08:06:17 Sciatica 05834772 Active Concepción [place] [facility] 4 08:06:27 Acquired scoliosis 851409069 Active Concepción [place] [facility] 4 08:06:42 Obstructi ve sleep apnea syndrome 43590994 Active Severe obstructi ve sleep apnea-hyp opnea syndrome Concepción [place] [facility] 4 08:06:55 Hyperglyc emia due to type 2 diabetes mellitus 027283320135 109 Active [facility] 4 08:07:20 Periphera l 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 2 diabetes mellitus 703931097289 7 Active [facility] 4 08:07:31 Notes:DJD (degenerative join t disease), lumbar, Encounter for screening colonoscopy, Prophylactic antibiotic - daily Pen VK for lymphedema , prevention of cellulitis, Problem Notes None recorded. Procedures Surgical History Date Name Laterality Status Provider Name and Address Organization Details Recorded Time 4 Most Recent Mammogram completed Concepción Flynn [facility] 05/13/2024 08:08:45 Imaging Results Imaging Date Name Status LastModified by Organiz atallan Details LastModified Time 10/19/2024 arterial study, lower extremity, complete completed [email or web address] (P[facility]) [address] [place] [address], [address], 10/24/2024 09:08:08 10/21/2024 imaging/diagn ostic result completed [facility] [address] [place], [address], 10/24/2024 11:52:02 Procedure Notes None recorded. Medical Equipment None Reported. Allergies Allergen ID Allergen Name Allergen Category Reaction Reaction Severity Criticality Documentation Date Start Date Code Code System Note Provider Name and Address Organization Details Recorded Time 6467 adhesive environme nt,medica tion Not available Not available Not available 05/13/2024 41171 UNK bad rash- blist ering /peel ing [facility] 4 08:08:00 6468 house dust allergeni c extract environme nt,medica tion Not available Not available Not available 05/13/2024 55857 9 RxNorm copd exac/ sinus conge stion [facility] 4 08:08:08 Medications Name Sig Start Date Stop Date Status Note LastModified by Organization Details LastModified Time penicillin V potassium 250 mg tablet 1 tablet by mouth twice daily active Not Available Not Available No t Available cyclobenzap rine 10 mg tablet TAKE 1 TABLET BY MOUTH THREE TIMES DAILY NEEDED FOR MUSCLE SPASM 05/20 completed Not Available Not Available Not Available furosemide 40 mg tablet 05/20 completed Not Available Not Available Not Available budesonide 32 mcg/actuati on nasal spray 05/20 completed Not Available Not Available Not Available metformin 500 mg tablet TAKE 1 TABLET BY MOUTH TWO TIMES A DAY active Not Available Not Available No t Available fentanyl 50 mcg/hr transdermal patch APPLY 1 PATCH TOPICALLY TO THE SKIN EVERY 72 HOURS 09/13 completed Not Available Not Available Not Available clonidine HCl 0.1 mg tablet 05/20 completed Not Available Not Available Not Available acetaminoph en 325 mg tablet TAKE 2 TABLETS BY MOUTH EVERY 6 HOURS NEEDED FOR MODERATE PAIN 2024 active Not Available Not Available Not Avai lable prednisone 10 mg tablet TAKE 4 TABLETS BY MOUTH EVERY DAY FOR 5 DAYS THEN 3 TABLETS FOR 3 DAYS THEN 2 TABLETS FOR 3 DAYS THEN 1 TABLET FOR 3 DAYS 08/03 completed Not Available Not Available Not Available lamotrigine 200 mg tablet 1 tablet by mouth daily with 25mg tablet active Not Available Not Available No t Available trazodone 50 mg tablet 05/20 completed Not Available Not Available Not Available azithromyci n 250 mg tablet TAKE 2 TABLETS FOR 1 DAY THEN 1 TABLET BY MOUTH FOR EVERY DAY 08/03 completed Not Available Not Available Not Available amiodarone 200 mg tablet 05/20 completed Not Available Not Available Not Available metoprolol succinate ER 50 mg tablet,exte nded release 24 hr 05/20 completed Not Available Not Available Not Available FreeStyle Lancets 28 gauge 05/20 completed Not Available Not Available Not Available prednisone 20 mg tablet TAKE 2 TABLETS BY MOUTH DAILY FOR 5 DAYS 05/20 completed Not Available Not Available Not Available tramadol 50 mg tablet TAKE 1 TABLET BY MOUTH TWICE DAILY NEEDED FOR PAIN 06/15 completed Not Available Not Available Not Available lamotrigine 25 mg tablet 1 tablet by mouth daily with 200mg active Not Available Not Available No t Available OneTouch Ultra Test strips 05/20 completed Not Available Not Available Not Available doxycycline monohydrate 100 mg capsule active Not Available Not Available Not Available ropinirole 0.5 mg tablet TAKE 1 TABLET BY MOUTH THREE TIMES DAILY 2024 active Not Available Not Available Not Avai lable dexamethaso ne 4 mg tablet TAKE 1 TABLET BY MOUTH TWICE DAILY FOR 3 DAYS 05/20 completed Not Available Not Available Not Available oxycodone 5 mg capsule TAKE 1 CAPSULE BY MOUTH EVERY 6 HOURS NEEDED FOR PAIN 05/20 completed Not Available Not Available Not Available nicotine 21 mg/24 hr daily transdermal patch 05/20 completed Not Available Not Available Not Available docusate sodium 100 mg capsule 05/20 completed Not Available Not Available Not Available gabapentin 300 mg capsule TAKE 1 CAPSULE BY MOUTH THREE TIMES DAILY 05/20 completed Not Available Not Available Not Available gabapentin 100 mg capsule TAKE 1 CAPSULE BY MOUTH THREE TIMES DAILY active Not Available Not Available No t Available fentanyl 25 mcg/hr transdermal patch Apply 1 patch every 72 hours by transderm al route for 15 days. 07/04 completed Not Available Not Available Not Available albuterol sulfate HFA 90 mcg/actuati on aerosol inhaler INHALE 2 PUFFS BY MOUTH EVERY 4 HOURS NEEDED FOR WHEEZING OR FOR SHORTNESS OF BREATH (BULK) active Not Available Not Available No t Available fentanyl 75 mcg/hr transdermal patch APPLY 1 PATCH TOPICALLY TO THE SKIN EVERY 72 HOURS active Not Available Not Available No t Available ipratropium bromide 21 mcg (0.03 %) nasal spray 05/20 completed Not Available Not Available Not Available loratadine 10 mg tablet 1 tablet by mouth daily active Not Available Not Available No t Available oxycodone 5 mg tablet TAKE 1 TABLET BY MOUTH EVERY DAY NEEDED FOR PAIN 06/15 completed Not Available Not Available Not Available cyclobenzap rine 5 mg tablet 05/20 completed Not Available Not Available Not Available rosuvastati n 10 mg tablet 1 tablet by mouth daily 06/15 completed Not Available Not Available Not Available DILT-XR 240 mg capsule, extended release 05/20 completed Not Available Not Available Not Available duloxetine 20 mg capsule,del ayed release 2 capsule by mouth daily with 60mg capsule active Not Available Not Available No t Available duloxetine 60 mg capsule,del ayed release 1 capsule by mouth with daily with 20mg capsule active Not Available Not Available No t Available tizanidine 4 mg capsule 1 capsule by mouth daily active Not Available Not Available No t Available fentanyl 12 mcg/hr transdermal patch Apply 1 patch every 72 hours by transderm al route for 15 days. 07/04 completed Not Available Not Available Not Available Symbicort 160 mcg-4.5 mcg/actuati on HFA aerosol inhaler 05/20 completed Not Available Not Available Not Available Symbicort 80 mcg-4.5 mcg/actuati on HFA aerosol inhaler 05/20 completed Not Available Not Available Not Available oxycodone 10 mg tablet TAKE 1 TABLET BY MOUTH THREE TIMES DAILY 05/20 completed Not Available Not Available Not Available Xarelto 20 mg tablet 1 tablet by mouth daily active Not Available Not Available No t Available Easy Touch Alcohol Prep Pads active Not Available Not Available No t Available fentanyl 37.5 mcg/hour transdermal patch Apply 1 patch every 72 hours by transderm al route for 30 days. 08/03 completed Not Available Not Available Not Available Trelegy Ellipta 100 mcg-62.5 mcg-25 mcg powder for inhalation active Not Available Not Available N ot Available OneTouch Ultra2 Meter 05/20 completed Not Available Not Available Not Available OneTouch Delica Plus Lancet 30 gauge 05/20 completed Not Available Not Available Not Available Flowflex COVID-19 Antigen Home Test kit 05/20 completed Not Available Not Available Not Available Vitals Date Recorded Body weight Heart rate Oxygen saturation Oxygen saturation in Arterial blood by Pulse oximetry Body mass index (BMI) Body height Systolic blood pressure Diastolic blood pressure Provider Name and Address Organization Details Last Updated DateTime 4 95022 g 81 /min 99 % 99 % 27.8 kg/m2 160.02 cm 124 mm[Hg] 78 mm[Hg] Joanne Krystina gomez [facility] 4 10:16:46 Date Recorded Body height Heart rate Oxygen saturation Oxygen saturation in Arterial blood by Pulse oximetry Systolic blood pressure Diastolic blood pressure Provider Name and Address Organization Details Last Updated DateTime 4 160.02 cm 63 /min 98 % 98 % 128 mm[Hg] 72 mm[Hg] Sherry Guevara RN [address] [facility], [facility] [address], [place], [address] , [facility] 4 09:24:25 Date Recorded Body height Body mass index (BMI) Body weight Oxygen saturation Oxygen saturation in Arterial blood by Pulse oximetry Heart rate Systolic blood pressure Diastolic blood pressure Provider Name and Address Organization Details Last Updated DateTime 4 160.02 cm 45.7 kg/m2 066864. 83 g 95 % 95 % 79 /min 120 mm[Hg] 74 mm[Hg] Elida Lee LPN 55 [facility] [address], [place], [address], [facility] 4 10:11:05 Date Recorded Body height Body mass index (BMI) Body weight Heart rate Oxygen saturation Oxygen saturation in Arterial blood by Pulse oximetry Systolic blood pressure Diastolic blood pressure Provider Name and Address Organization Details Last Updated DateTime 5 160.02 cm 47.3 kg/m2 290386. 16 g 85 /min 99 % 99 % 138 mm[Hg] 82 mm[Hg] Joanne gomez [facility] 5 10:20:23 Date Recorded Body height Body mass index (BMI) Body weight Heart rate Oxygen saturation Oxygen saturation in Arterial blood by Pulse oximetry Systolic blood pressure Diastolic blood pressure Provider Name and Address Organization Details Last Updated DateTime 5 160.02 cm 45.2 kg/m2 522334. 49 g 86 /min 99 % 99 % 144 mm[Hg] 80 mm[Hg] Marimar Mayfield RN 55 [facility] [address], [place], [address], [facility] 5 11:15:04 Social History Question Answer Notes LastModified by Organizat ion Details LastModified Time Tobacco Smoking Status Current Every Day Smoker Joanne Fierro [facility] 05/20/2024 10:13:01 How Much Tobacco Do You Smoke? 1 PPD [facility] Information not available 05/20/2024 Sex: Unknown Functional Status None recorded. Mental Status None recorded. Family History Nothing Reported. Medical History No medical history recorded. Gynecological History Statement/Question Response Most Recent Mammogram 08/14/2023 Obstetrics History GPAL:G 0 P 0 0 0 0 Immunizations Vaccine Type Date Status Note Provider Nam e and Address Organization Details Recorded Time Pneumococcal conjugate PCV20, polysaccharide ROA800 conjugate, adjuvant, PF 3 completed Joanne Burlingham null, [place] [facility] 05/20/2024 10:12:30 Tdap 2 completed Concepción Black null, [place] [facility] 05/13/2024 08:11:18 COVID-19, mRNA, LNP-S, PF, 30 mcg/0.3 mL dose 1 completed Joanne Burlingham [place], [place] [facility] 05/20/2024 10:12:30 COVID-19, mRNA, LNP-S, PF, 30 mcg/0.3 mL dose 1 completed Joanne Burlingham [place], [place] [facility] 05/20/2024 10:12:30 COVID-19, mRNA, LNP-S, PF, 30 mcg/0.3 mL dose, lenin-sucrose 2 completed Joanne Burlingham [place], [place] [facility] 05/20/2024 10:12:30 Tdap 7 completed Joanne Burlingham [place] [facility] 05/20/2024 10:12:30 Influenza, split virus, trivalent, preservative 0 completed Joanne Bur[place]ham [place], [place] [facility] 05/20/2024 10:12:30 Influenza, split virus, trivalent, preservative 1 completed Joanne Bur[place]ham [place] [facility] 05/20/2024 10:12:30 Influenza, split virus, trivalent, preservative 9 completed Joanne [place]ham [place] [facility] 05/20/2024 10:12:30 Influenza, split virus, trivalent, preservative 2 completed Joanne Bur[place]ham [place] [facility] 05/20/2024 10:12:30 Influenza, split virus, trivalent, preservative 7 completed Joanne [place]ham [place] [facility] 05/20/2024 10:12:30 Influenza, split virus, trivalent, preservative 3 completed Joanne [place]ham [place] [facility] 05/20/2024 10:12:30 Influenza, split virus, trivalent, preservative 8 completed Joanne Burlingham [place] [facility] 05/20/2024 10:12:30 Influenza, split virus, trivalent, preservative 1 completed Joanne acosta [place] [facility] 05/20/2024 10:12:30 Influenza, split virus, trivalent, PF 5 completed RA[facility] 05/20/2024 10:12:30 Influenza, split virus, trivalent, PF 7 completed Joanne acosta [facility] 05/20/2024 10:12:30 Hep B, adult 2 [facility] 05/20/2024 10:12:30 Past Encounters Encounter ID Performer Location Encounter Start Date Encounter Closed Date Diagnosis/Indication Diagnosis SNOMED-CT Code Diagnosis ICD10 Code Diagnosis Note [id number] GIOVANNA ROSAS Main Office [address] [facility] [address] [facility] [place] [address] 05/20/2024 09:56:32 05/20/2024 10:30:07 Patient new to provider [id number] 01516 Z76.89 The following time was spent on todays E/M encounter, including preparing for the visit, reviewing results, seeing the patient, and documentat ion on the date of service of the encounter: {{ 45#}} 67667 15-29 minutes 89666 30-44 minutes 87672 45-59 minutes 01911 60-74 minutes 68733 10-19 minutes 49591 20-29 minutes 76521 30-39 minutes 58562 40-54 minutes Type 2 paris betes mellitus 15843716 E11.21 Due for hemoglobin A1c at next visit will ascertain about last retinal dilated retinal exam Atrial fibrillation 4943 6004 I48.91 recent ablation per patientrec ords unavailabl triny NOAC Major depr essive disorder 664416012 F32.9 chronic, stable Chronic low back pain [address] José for pain management [id number] Dallas Char José DO Main Office [address] [facility],[address] [place] [address] 06/15/2024 09:15:00 06/15/2024 09:55:52 Moderate chronic obstructive pulmonary disease 956763033 J44.9 Paroxysmal atrial fibrillation 058167668 I48.0 Spinal selvin nosis of lumbar region 40989238 M48.062 Uncontroll ed type 2 diabetes mellitus 729179961 E11.65 Continuous dependence on cigarette smoking 3464387150 77467 F17.210 [id number] GIOVANNA ROSAS Main Office [address] [facility],[address] [place] [address] 07/04/2024 09:54:44 07/04/2024 10:43:38 Degeneration of cervical intervertebral disc 16215792 M50.30 Patient would like to start physical therapy for her cervical disc disease. She has used [facility] in the past and would like to return there referral sent. Chronic pain 80666915 G8 9.29 We do long discussion about the fact that we will never take totally her pain away blood just make it manageable . She will need to use other adjunct therapies such as distractio n, meditation , decreasing stress. She states she has done pain management workshops And understand s the concept of adjuvant therapy. I will step dose her to fentanyl 37.5 mg every 3 days prescripti on is sent in 1 month follow-up we discussed that once we have settled on a dose that she will go on a 3-month contract for controlled substances . Spinal selvin nosis of lumbar region 89614587 M48.061 Patient has failed to cord stimulator s and is on chronic opiates. [id number] GIOVANNA ROSAS Main Office [address] [facility],[address] [place] [address] 08/03/2024 10:14:01 08/03/2024 10:41:06 Chronic pain syndrome 667308602 G89.4 will step dose to next leveldiscu ssed with patient that we will never be able to aleviate all her pain and that she should not do activities that cause painfollow up one month Chronic back pain 956583 002 M54.9 will augment pain control with prn heating pad Weakness of left hand 15 55894777 3104701 R29.898 cervical disc disease with residual left hand weakness referral for OT evaluation Hyperglyce carina due to type 2 diabetes mellitus 2063210768 62986 E11.65 due for labs and follow up discussed with patient [id number] GIOVANNA ROSAS Main Office [address] [facility],[address] [place] [address] 09/13/2024 10:45:15 09/13/2024 11:26:32 Peripheral vascular disease 119271777 I73.9 discussed strict elevation while sittingUrg ent wound care appointmen t, pt agrees to [facility] if cannot get in [facility] dGentle soap and water, pat dry discusseds een in ED for cellulitis on abx Chronic ob structive pulmonary disease 28889274 J44.9 GOLD stage 1 chronic obstructiv e pulmonary disease, centrilobu lar emphysema, pulmonary nodules, cigarette nicotine dependence , severe obstructiv e sleep apnea on autoBIPAP, allergic rhinitis, chronic diastolic heart failure, paroxysmal atrial fibrillati on, diabetes mellitus type 2, obesity, scoliosis, hyperparat hyroidism, pseudogout , bilateral knee osteoarthr itis status post bilateral knee replacemen ts, chronic low back pain, lumbar stenosis status post laminectom y and spinal cord stimulator (01/2024), bipolar disorder, post-traum atic stress disorder, and history of recurrent deep vein thrombosis on anticoagul ation presenting for follow up of COPD. Hyperglyce carina due to type 2 diabetes mellitus 9481025939 46239 E11.65 due for labs and follow up discussed with patient Paroxysmal atrial fibrillation 282830660 I48.0 chronic stable Health Concerns Section Related Observation LastModified by Organization Detai ls LastModified Time None Recorded Concern Status LastModified by Organization Details LastModified Time None Recorded Advance Directives Directive None Recorded Payers Encounter Date Sequence Insurance Name Policy Number Policy Guillen Covered Member ID Guillen Member ID Guarantor Name 05/20/[address] [facility] - DOS ON OR AFTER 2022 - [place]IC[place]V ANTAGE - PPO) Shruthi Melendezrett [id number] Shruthi Kwesi 06/15/[address] [facility] - DOS ON OR AFTER 2022 - [place]V ANT[place] - [place]) Shruthi Melendezrett [id number] Shruthi Kwesi 07/04/[address] [facility] - DOS ON OR AFTER 2022 - [place]V ANT[place] - [place]PO) Shruthi Melendezrett [id number] Shruthi Orosco 08/03/2024 1 [facility] - DOS ON OR AFTER 2022 - [place]V ANTAGE - [place]PO) Shruthi Peraltat [id number] Shruthi Orosco 09/13/2024 1 [facility] - DOS ON OR AFTER 2022 - [place]V ANTAGE - [place]PO) Shruthi Peraltat [id number] Shruthi Orosco Notes Date Note Type Note Provider Name and Address Organization Details Recorded Time 05/20/2024 text/html here to [facility] I chose this practice because of Dr José I want to talk to him about pain management, I just had another spine stimulator placed by Dr Kearns. [facility] won't see me anymore. Constant low back painSees pulmonology Dr Mahmood for COPD, smokes 1 ppdOSA on cpapRecent mammogram per patientUnsure on her immunizations? on colonoscopyNo old primary care records available at this visitToday c/o chronic low radiating back pain to both legsNo acute complaints GIOVANNA ROSAS [address] [facility], [facility] [address], [place], [address], [facility] 05/20/2024 14:54:41 06/15/2024 text/html Shruthi Orosco i s a 58-year-old female who presents with a chief complaint of chronic pain persisting for 30 years. She reports severe spinal nerve damage and has been diagnosed with 8 herniated discs, an increase from 2 previously. The patient has undergone placement of a second spinal cord stimulator, which she reports helps alleviate radicular leg pain and sciatica. Despite these interventions, her pain rarely falls below a 7 on the pain scale. She has consulted 9 specialists, none of whom have been able to provide a definitive solution. Oxycodone has been effective in taking the edge off her pain, although she has not been on regular pain medication for 4 years, except when prescribed by a doctor. The spinal cord stimulator was presented as her only option for pain management. She denies alcohol and illicit drug use, adhering only to prescribed medications. Dallas José, [address], [address], [facility] 06/15/2024 10:32:36 07/04/2024 text/html Here to discuss pain management. She has found some relief with the fentanyl patch. She did have some trouble having it here but about the clear tape to adhere to her body. She still says that she is pain level is unacceptable but is below an 8 no trouble with constipation. She is not doing any adjunct therapy for her chronic pain nothing else can be done she is requesting a physical therapy referral for her cervical neck discomfort she would like to go to [facility]. GIOVANNA ROSAS [address], [address], [facility] 07/04/2024 10:34:08 08/03/2024 text/html Fasting glucose in the 220 range had ran out of her Metformin beginning of June and recently restartedChronic back pain with failed back syndrome states the fentanyl patches have worked initially with increase dose but then she overdid housework and had worsening pain. States pain worse with standing. No side effects/constipation or jittery GIOVANNA ROSAS [address], [address], [facility] 08/05/2024 12:35:27 09/13/2024 text/html Shruthi is here f or follow up ER, note unavailable and 3 months follow up chronic painShe was seen in ED for bilateral lower extremity cellulitis and started on Doxycycline Denies fever, warmth or discharge from lower extremities. No chest pain, dyspnea or palpitationsShe is on Fentanyl patches 75 mcg every 72 hours for chronic low back pain, h/o failed back syndromeShe states good pain relief, able to do light house work and ambulate with walker Denies constipaton GIOVANNA ROSAS [address], [address], [place] [facility] 09/13/2024 13:05:23 OBGyn Episode No OBEpisode recorded.
--- OUTSIDE RECORDS SUMMARY | 2024-12-02 05:59 | XMS_ITS | Data Portability ---
Author Organization Subject Company, [employer] Address [address] [place] [phone] Care Team Providers Care Energy Management Specialist Name Role Phone HIM CCA OTHER LATOYA DOSHI Primary Care Provider Assessment Encounter Date Assessment Date Assessment LastModified by Organization Details LastModified Time 03/31/2023 03/31/2023 I provided real -time medical direction via phone for this encounter, and was available for additional phone based assistance as needed. I have reviewed and agree with the Assessment and Plan as documented by the Manager Terminal. Patient given the opportunity to ask questions. Advised if develops worsening CP/severe SOB/turning blue/uncontrolle d n/v/d or black/bloody emesis or stool/ AMS/ syncope/ hi fever to call 911- verbalized understanding of instructions [email or web address] Not available 03/31/2023 16:38:11 08/22/2023 08/22/2023 I provided real -time medical direction via phone for this encounter, and was available for additional phone based assistance as needed. I have reviewed and agree with the Assessment and Plan as documented by the Manager Terminal. Patient given the opportunity to ask questions. [...] recorded. Lab rapid flu (A+B) 2022 023 [email or web address] [facility], [address] [place] [address], [id number] 3 19:58:40 rapid strep group A, throat 2022 023 [email or web address] [facility], [address] [place] [address], [id number] 3 19:58:18 streptococc us group A, culture, throat 2022 023 COLIN [facility] (Centralized Electronic Ordering - All Locations), Patient Can Go To The Location Of Their Choice, [id number] 3 07:41:24 rapid strep group A, throat 2022 023 [facility] [address] [place] [address], [address] 3 19:59:12 rapid SARS CoV 2 Ag, QL IA, respiratory specimen 2022 023 [email or web address] 0 [facility], [address] [place] [address], [id number] 3 14:49:50 Referral None recorded. Procedures None recorded. Surgeries None recorded. Imaging electrocard iogram 2022 023 [email or web address] 0 [facility], [address] [place] [address], [id number] 3 14:49:50 Medication Orders ketorolac 30 mg/mL (1 mL) injection solution 2023 024 [email or web address] [id number], [address], [place], [id number], 4 21:32:07 albuterol sulfate 2.5 mg/3 mL (0.083 %) solution for nebulizatio n 2022 023 [email or web address] 0 Not available 14:49:50 prednisone 20 mg tablet 2022 023 [email or web address] 0 Not available 14:49:50 prednisone 20 mg tablet 2022 023 COLIN [facility][id number], [address], [place], [phone], 3 14:50:03 Patient TargetsNo targets recorded. Patient InstructionsNo instructions recorded. Reason for Referral None Reported. Results Created Date Observation Date Name Description Value Unit Range Abnormal Flag Note LastModifiedBy Organization Detail LastModifiedTime 03/31/2003/31/2023 rapid SARS CoV 2 Ag, QL IA, respi rator y speci men rapid SARS CoV 2 Ag, QL IA, respiratory specimen negati ve Not Available [facility] ed [address] [place] [address], [phone] 03/31/2023 14:06:51 07/17/20 23 07/17/2023 GROUP A STREP CULT. specimen description THROAT SWAB Not Available [facility] (Centralized Electronic Ordering - All Locations) Patient Can Go To The Location Of Their Choice, [id number] 07/20/2023 07:41:24 07/17/20 23 07/17/2023 GROUP A STREP CULT. special requests NONE Not Available [facility] (Centralized Electronic Ordering - All Locations) Patient Can Go To The Location Of Their Choice, [id number] 07/20/2023 07:41:24 07/17/20 23 07/20/2023 GROUP A STREP CULT. culture NO GROUP A BETA HEMOLY TIC STREPT OCOCCI ISOLAT ED Not Available [facility] (Centralized Electronic Ordering - All Locations) Patient Can Go To The Location Of Their Choice, [id number] 07/20/2023 07:41:24 07/17/20 23 07/20/2023 GROUP A STREP CULT. report status FINAL 2022 Not Available [facility] (Centralized Electronic Ordering - All Locations) Patient Can Go To The Location Of Their Choice, [id number] 07/20/2023 07:41:24 07/17/20 23 07/17/2023 rapid strep group A, throa t Strep negati ve Not Available [facility] ed [address] [place] [address], [address] 07/17/2023 19:58:58 07/17/20 23 07/17/2023 rapid flu (A+B) Flu negati ve Not Available [facility] ed [address] [place] [address], [address] 07/17/2023 19:56:02 07/17/20 23 07/17/2023 rapid strep group A, throa t Strep negati ve Not Available [facility] ed [address] [place] [address], [address] 07/17/2023 19:56:05 02/28/20 23 02/27/2023 elect rocar diogr am No observ ation record ed. [address], [phone] 02/27/2023 14:53:09 03/31/20 23 03/31/2023 elect rocar diogr am No observ ation record ed. [email or web address] [address], [address] 03/31/2023 14:49:47 Result Notes None recorded. Procedures Surgical History None recorded. Imaging Results Imaging Date Name Status LastModified by Organization Details LastModified Time 02/27/2023 electrocardiogram completed [address], [id number] 02/27/2023 14:53:09 03/31/2023 electrocardiogram completed [email or web address] [address], [address] 03/31/2023 14:49:47 Procedure Notes None recorded. Medical Equipment None Reported. Allergies Allergen ID Allergen Name Allergen Category Reaction Reaction Severity Criticality Documentation Date Start Date Code Code System Note Provider Name and Address Organization Details Recorded Time 3214 adhesive tape environme nt,medica tion rash Not available Not available 03/31/2023 [id number] UNK Rubi Mesa MD [address] [facility],[address], [place], [address], JACKY KELLER 3 17:24:31 Medications Name Sig Start Date Stop [...] Available Not Available No t Available FreeStyle Marion Lite kit CHECK GLUCOSE TWICE DAILY active [...] Not Available Not Available No t Available Monica Andre [facility] spacer active Not Available Not Available Not [...] % 157.48 cm 130 /min 98.4 [degF] 958617 g 128 mm[Hg] 84 mm[Hg] Not Available [employer] 3 17:29:44 Date Recorded Body temperature Body height Oxygen saturation Oxygen saturation in Arterial blood by Pulse oximetry Heart rate Body weight Respiratory rate Systolic blood pressure Diastolic blood pressure Provider Name and Address Organization Details Last Updated DateTime 3 97.8 [degF] 160.02 cm 95 % 95 % 49 /min 809762. 264 g 18 /min 118 mm[Hg] 73 mm[Hg] Not Available [employer] production 3 14:03:02 Date Recorded Respiratory rate Heart rate Body height Oxygen saturation Oxygen saturation in Arterial blood by Pulse oximetry Body temperature Body weight Systolic blood pressure Diastolic blood pressure Provider Name and Address Organization Details Last Updated DateTime 3 20 /min 65 /min 162.56 cm 97 % 97 % 98.1 [degF] 525263. 6 g 128 mm[Hg] 84 mm[Hg] Not Available [employer] 3 15:25:16 Date Recorded Body weight Body height Oxygen saturation Oxygen saturation in Arterial blood by Pulse oximetry Body temperature Heart rate Respiratory rate Systolic blood pressure Diastolic blood pressure Provider Name and Address Organization Details Last Updated DateTime 3 761537. 08 g 160.02 cm 99 % 99 % 98.5 [degF] 81 /min 18 /min 132 mm[Hg] 85 mm[Hg] Not Available [employer] production 3 19:55:06 Date Recorded Heart rate Body temperature Respiratory rate Oxygen saturation Oxygen saturation in Arterial blood by Pulse oximetry Systolic blood pressure Provider Name and Address Organization Details Last Updated DateTime 4 73 /min 98.8 [degF] 18 /min 97 % 97 % 130 mm[Hg] Not Available [employer] 4 21:21:50 Social History None recorded. Functional [...] Note [id number] Estella Rodriguez MD Main - [address] [address] 12/11/2021 13:57:22 04/01/2022 15:51:42 Angina pectoris [id number] I20.9 Pt with recent incidental diagnosis of AFlutter on digoxin and metoprolol called for episodes of tachycardi a (not captured on EKG today though likely c/w breakthrou gh AFlutter) and new exertional chest pain (not during episdoes of tachycardi a) c/w angina. Per pt has never undergone stress testing or C, has cardiology eval planned for December. EKG today w/ Q waves III and V1, no acute ST-T seg changes however give hx c/f unstable angina needs more urgent risk stratifica tion (HEART score 5 without consider of troponin, so rules in for urgent stress testing regardless of trop level). Pt agrees to ED trasport, expect called to [facility]. Full dose ASA given. I have reviewed and agree with the assessment and plan as documented by the stocking and box shop supervisor. I provided real time medical direction for this encounter and was immediatel y available to provide additional phone based assistance as needed. [id number] Niall Cardoso MD [facility] - [address] [phone] 02/27/2023 14:50:04 02/28/2023 11:15:47 Atrial flutter 6086668 I48.92 [id number] Lester Villalobos MD [facility] - [address] [phone] 03/15/2023 17:29:32 03/16/2023 07:18:40 Paroxysmal atrial flutter 979501177 I48.92 As noted, we were called to see this patient regarding concerns of feeling unwell. Evaluation in the field was performed by my stocking and box shop supervisor colleague, as noted above, I provided real-time [...] and the need for complicate d treatment. [id number] Rubi Mesa MD Main - [address] [address] 03/31/2023 14:02:46 04/01/2023 11:11:05 Dyspnea 038673136 R06.00 copd exacerbati on-wheezin g improved with nebulizer- see note below patient is refusing ER care so I will put her on a short course of prednisone and increase her albuterol to 2 puffs every 4 hours while she is feeling short of breath. I requested CRC reach out to her medicare compliance auditor about getting her follow-up with her PCP [facility] and getting home nebulizer. Chest pain 12861617 R07. 9 Patient declines aspirin due to [...] of ACS is beyond the scope of [facility] and I expressed my concern for her [...] need to follow-up with her PCP tomorrow [id number] Clovis Petersen MD Main - instED [address] [place] [phone] 06/02/2023 15:25:14 06/02/2023 22:32:25 Low back pain 404555943 M54.50 This 57-year-ol d [facility]. She has a history of chronic back pain but OTC medication s haven't been effective. I ordered Toradol 30 mg IM. She will follow-up with her PCP. The patient agreed with this plan. [id number] EDILSON ROACH MD Main - instED [address] [place] [phone] 07/17/2023 19:55:00 07/18/2023 17:23:41 Sore throat [id number] J02.9 Evaluation in the field was performed by my stocking and box shop supervisor colleague, as noted above, I provided real-time [...] CP, fever or any other concerns _ [id number] Ilana Reeves MD Main - [facility] [address] [place] [phone] 08/22/2023 21:21:46 08/23/2023 15:30:12 Strain of neck muscle 470042134 S16.1XXA Health Concerns Section Related Observation LastModified by Organization Detai ls LastModified Time None Recorded Concern Status LastModified by Organization Details LastModified Time None Recorded Advance Directives Directive None Recorded Payers Insurance Date Sequence Insurance Name Policy Number Policy Guillen Covered Member ID Guillen Member ID Guarantor Name 02/27/2023 1 [facility] - DOS PRIOR TO 2022 - DUAL ELIGIBLE (MEDICARE REPLACEMENT/ADV ANTAGE - HMO) Shruthi Orosco [id number] Shruthi Orosco 11/26/2023 1 [facility] - DOS ON OR AFTER 2022 - DUAL ELIGIBLE - ASSISTED OPTIONS AND ONE CARE (MEDICARE REPLACEMENT/ADV ANTAGE - HMO) Shruthi Orosco [id number] Shruthi Orosco Notes Date Note Type Note [...] .................... .................... .................... .................... .................... .................... . Manager Terminal Note From Chao Zhang: PT caox3 complains [...] advises pt to go to ED [facility]. [facility] arrives to transport pt to [place] ED. Care transferred to EMS. .................... .................... .................... .................... .................... .................... .................... . Disposition: Fulfilled Lester Villalobos MD [address] [place] [address],[address], [place], [address], Subject Company 03/16/2023 15:03:34 03/31/2023 text/html HPI: PT has [...] med seeking behavior, and was asking if [facility] could prescribe pain medications. [facility] has a call out to members PCP for a nebulizer machine. Member would like to be evaluated. .................... .................... .................... .................... .................... .................... .................... . Manager Terminal Note From Paradise Parker: Sent to a [...] have a nebulizer in the past, and [facility] is following up with PCP about a [...] test: neg; 12 lead ECG: uploaded to My[employer]; [facility] consulted and pt is advised she needs to be transported to ED for a cardiac workup. Pt does not want to be transported to ED, but agrees to think about it. Pt states she doesn't want to go to ED because she has been 4 times, she doesn't have a ride home, and doesn't have anyone to watch her animals. [facility] orders Albuterol nebulized treatment. Pt reports feeling better after nebulized treatment, but chest pressure remains. Lung sounds: decreased expiratory wheezing; [facility] consulted and pt agrees to be transported to ED, but then refuses transport again. Risks of refusing transport for further eval/treatment explained. Pt states she understands risks and signs refusal signature. [facility] orders Prednisone 60mg PO, and sends script [...] .................... . Disposition: Fulfilled Rubi Mesa MD [address] [facility],[address], [place], [address], [facility] - [employer] 03/31/2023 17:24:57 06/02/2023 text/html HPI: 57 yo [...] Took Tylenol 3am today. Clovis Petersen MD [address] [place] [address],[address], [place], [phone], Subject Company 06/02/2023 15:28:28 07/17/2023 text/html HPI: 57 yo female with symptoms of severe sore throat, cough, chest and nasal congestion with chest tightness, no sputum production X 2 days, generally felling very sick, COVID - with at home antigen test. Pain 9-10, back and leg pain .................... .................... .................... .................... .................... .................... .................... . CRC Nurse Triage Notes (Mian Lewis): Comments: Reviewed -Jeni COLBERT .................... .................... .................... .................... .................... .................... .................... . Manager Terminal Note From Paradise Parker: Sent to a call for a pt complaining of URI symptoms. AMANDA arrives on scene, pt is alert and [...] flu test: neg; Rapid strep test: neg; [facility] consulted and orders strep culture to be sent to [facility]. Pt advised to drink tea with honey, gargle with warm salt water, and give throat a rest by continuing with soup and fluids (avoiding solid foods) for 24 hrs. Red flags discussed. Pt has no further questions. [facility] Lab Orders: rapid flu (A+B): Performed rapid strep group A, throat: Performed streptococcus group A, culture, throat: Performed rapid strep group A, throat: Not Performed Comment: extra order .................... .................... .................... .................... .................... .................... .................... . Disposition: Jose EDILSON ROACH MD [address] [facility],[address], [place], [address], Subject Company 07/17/2023 21:30:25 08/22/2023 text/html CRC Nurse Triage Notes (Mian Lewis): Chief Complaints: Pain PMH: Heart Disease, CHF, COPD/Asthma, Hypertension Allergies: Unknown Comments: Clinical Lab Scientist verified the member's name//address and phone number - Education provided on the response time and the member was advised to monitor reported s/s and seek emergency treatment if needed. Member reports a hx of neck, upper back and left/right arm pain - Denies any new injuries or trauma - Denies fever - Member pain management. .................... .................... .................... .................... .................... .................... .................... . Manager Terminal Note From Marimar Mccormack: Community Manager Terminal Aquiles Mccormack CCA1 dispatched [facility] for a 57 yof C/O neck and [...] assessed and treated by them. Equal bilateral fourdrinier machine operator strength, no arm drift, CMS present and [...] .................... . Disposition: Fulfilled Ilana Reeves MD [address] [facility],[address], [place], [address], Subject Company 08/22/2023 21:32:30 OBGyn Episode No OBEpisode recorded.
--- NOTE | 2024-12-02 06:17 | PC.NURSE ---
Sitting up. NAD. SB on monitor. denies dizziness and SOB at rest. Awaits room assignment. no O2 needed.
[2024-12-02 06:33] LABS: Hematocrit 39.4 % (37.0-47.0); Hemoglobin 12.8 g/dl (12.0-16.0); Mean Corpuscular HGB Conc 32.5 g/dl (31.0-35.0); Mean Corpuscular Hemoglobin 25.5 pg (27.0-33.0); Mean Corpuscular Volume 78.5 fL (80.0-98.0); Mean Platelet Volume 9.5 fL (9.4-12.3); Platelet Count 294 X10*3/uL (160-400); Red Blood Count 5.02 X10*6/uL (4.20-5.50); Red Cell Distribution Width 16.9 % (11.0-16.0); White Blood Count 6.7 X10*3/uL (4.8-10.8)
[2024-12-02 06:42] LABS: Anion Gap 14 (12-20); Blood Urea Nitrogen 14 mg/dL (9-16); Calcium 9.2 mg/dL (8.4-10.2); Carbon Dioxide 30 mmol/L (22-29); Chloride 96 mmol/L (96-108); Creatinine Clr Calc Pharmacy 78.8; Estimated Glomerular Filt Rate > 60; Glucose Random 294 mg/dL (60-115); Potassium 4.2 mmol/L (3.3-5.1); Sodium 136 mmol/L (135-145)
[2024-12-02 07:00] LABS: Glucose, Whole Blood 284 mg/dL (60-115)
[2024-12-02] MEDS: Insulin Lispro 100 UNIT/ML 3 ML VIAL SUBCUT (07:43)
[2024-12-02] MEDS: Albuterol/Iprat 2.5/0.5MG 3 ML AMPUL.NEB INHALE ×2 (07:49→11:17)
--- NOTE | 2024-12-02 08:04 | PC.NURSE ---
assumed care of this pt, she is a&ox4, resp mildly laboured at baseline, speaking in clear full sentences. sitting comfortably in chair at bedside. remains in sinus raic, amio gtt running. denies pain. ate most of breakfast tray. rt at bedside for neb tx. pt aware of plan for admission and monitoring. call pelaez placed within reach.
[2024-12-02] MEDS: Nicotine 14 MG PATCH.TD24 TRANSDERMA (08:18)
[2024-12-02] MEDS: predniSONE 20 MG TABLET 40 MG PO (08:18)
[2024-12-02] MEDS: rOPINIRole HCL 0.5 MG TABLET PO (08:22)
[2024-12-02] MEDS: lamoTRIgine 25 MG TABLET 50 MG PO (08:23)
[2024-12-02] MEDS: Loratadine 10 MG TABLET PO (08:23)
[2024-12-02] MEDS: DULoxetine HCl 60 MG CAPSULE.DR PO (08:23)
[2024-12-02] MEDS: Gabapentin 100 MG CAPSULE PO (08:23)
[2024-12-02] MEDS: fentaNYL 75 MCG PATCH.TD72 TRANSDERMA (11:06)
--- NOTE | 2024-12-02 11:08 | HO.PM.IMPN ---
Subjective Subjective Date of Service: 12/02/24 Interval History: resolved Physical Exam Vital Signs: Vital Signs: Last Vital Signs Temp 97.5 F 12/02/24 06:15 Pulse 60 12/02/24 08:07 Resp 23 H 12/02/24 08:07 BP 123/60 12/02/24 08:07 Pulse Ox 95 12/02/24 08:07 O2 Del Method Room Air 12/02/24 08:07 O2 Flow Rate 3 12/02/24 03:42 BMI result Body Mass Index 44.3 General: AO X 3, no acute distress Resp: CTA bilateral, no accessory muscles used CVS: S1,S2,RRR GI: soft, non tender, non distended Neuro: motor grossly intact, alert Psych: appropriate affect, appropriate insight Objective Data Active Medications Acetaminophen (Acetaminophen 325 Mg Tablet) 650 mg PO Q6H PRN PRN Reason: Pain, Mild 1-3,fever,headache Albuterol/Ipratropium (Albuterol/Iprat 2.5/0.5mg 3 Ml Ampul.Neb) 3 ml INHALE Q4H PRN PRN Reason: Shortness of Breath/Wheezing Albuterol/Ipratropium (Albuterol/Iprat 2.5/0.5mg 3 Ml Ampul.Neb) 3 ml INHALE RQ4H WHILE AWAKE [facility] Last Admin: 12/02/24 07:49 Dose: 3 ml Documented By: ANGELA Calcium Carbonate (Calcium Carbonate 750 Mg Tab.Chew) 750 mg PO Q4H PRN PRN Reason: Heartburn Dextrose (Dextrose 50 % 25 Gm/50 Ml Syringe) 25 gm IVPUSH Q15M PRN; Protocol PRN Reason: per Hypoglycemia Standing Ord. Duloxetine HCl (Duloxetine Hcl 60 Mg Capsule.) 60 mg PO DAILY [facility] Last Admin: 12/02/24 08:23 Dose: 60 mg Documented By: TRINY Duloxetine HCl (Duloxetine Hcl 20 Mg Capsule.) 40 mg PO BEDTIME [facility] Fentanyl (Fentanyl 75 Mcg Patch.Td72) 75 mcg TRANSDERMA Q3D [facility] Last Admin: 12/02/24 11:06 Dose: 75 mcg Documented By: TRINY Fluticasone/Umeclidinium/Vilanterol (Fluticasone/Umeclidinium/Vilanterol 100/62.5/25 Blst.W.Dev) 1 puff INHALE RDAILY [facility] Last Admin: 12/02/24 08:13 Dose: Not Given Documented By: ANGELA Non-Admin Reason: Med Not Available Gabapentin (Gabapentin 100 Mg Capsule) 100 mg PO TID [facility] Last Admin: 12/02/24 08:23 Dose: 100 mg Documented By: TRINY Glucose (Glucose Gel 15 Gm Gel..Gram.) 15 gm PO Q15M PRN; Protocol PRN Reason: per Hypoglycemia Standing Ord. Amiodarone HCl 900 mg/ Sodium (Chloride) 518 mls @ 34.533 mls/hr IVCONT .Q15H1M [facility]; Protocol Last Infusion: 12/02/24 06:15 Dose: 0.5 mg/min, 17.27 mls/hr Documented By: MONET Insulin Human Lispro (Insulin Lispro 100 Unit/Ml 3 Ml Vial) 0 unit SUBCUT QIDACHS [facility]; Protocol Last Admin: 12/02/24 07:43 Dose: 6 unit Documented By: TRINY Lamotrigine (Lamotrigine 100 Mg Tablet) 200 mg PO BEDTIME [facility] Lamotrigine (Lamotrigine 25 Mg Tablet) 50 mg PO DAILY [facility] Last Admin: 12/02/24 08:23 Dose: 50 mg Documented By: TRINY Loratadine (Loratadine 10 Mg Tablet) 10 mg PO DAILY [facility] Last Admin: 12/02/24 08:23 Dose: 10 mg Documented By: TRINY Magnesium Hydroxide (Milk Of Magnesia 30 Ml Oral.Susp) 30 ml PO DAILY PRN PRN Reason: Constipation Melatonin (Melatonin 3 Mg Tablet) 6 mg PO BEDTIME PRN PRN Reason: Insomnia Nicotine (Nicotine 14 Mg Patch.Td24) 14 mg TRANSDERMA DAILY [facility] Last Admin: 12/02/24 08:18 Dose: 14 mg Documented By: TRINY Ondansetron HCl (Ondansetron Hcl 4 Mg/2 Ml Vial) 4 mg IVPUSH Q8H PRN PRN Reason: Nausea and Vomiting Prednisone (Prednisone 20 Mg Tablet) 40 mg PO DAILY [facility] Last Admin: 12/02/24 08:18 Dose: 40 mg Documented By: TRINY Rivaroxaban (Rivaroxaban 20 Mg Tablet) 20 mg PO DAILY@1700 [facility] Ropinirole HCl (Ropinirole Hcl 0.5 Mg Tablet) 0.5 mg PO TID [facility] Last Admin: 12/02/24 08:22 Dose: 0.5 mg Documented By: TRINY Sodium Chloride (0.9 % Sodium Chloride Flush 3 Ml Syringe) 3 ml IVFLUSH QSHIFT [facility] Last Admin: 12/02/24 07:43 Dose: 3 ml Documented By: TRINY Labs 12/02/24 06:20 12/02/24 06:20 Labs: Laboratory Results - last 24 hr 12/01/24 12/01/24 12/01/24 18:48 18:49 18:59 MCV 81.7 MCH 25.4 L MCHC 31.1 RDW 17.0 H Plt Count 274 MPV 9.8 Immature Gran % (Auto) 1.1 H Neut % (Auto) 68.7 Lymph % (Auto) 23.9 [place] % (Auto) 5.8 Eos % (Auto) 0.0 Baso % (Auto) 0.5 Lymph # (Auto) 1.3 [place] # (Auto) 0.3 Eos # (Auto) 0.0 Baso # (Auto) 0.0 Abs Immat Gran (auto) 0.06 H Absolute Neuts (auto) 3.8 Absolute Nucleated RBC 0.020 H Nucleated RBC % (auto) 0.4 H VBG pH 7.42 Cancelled VBG pCO2 54 Cancelled VBG pO2 33 Cancelled VBG HCO3 35 H Cancelled VBG O2 Saturation 52.0 Cancelled VBG Base Excess 9.3 Cancelled Anion Gap 14 Estim Creat Clear Calc 111.5 Estimated GFR > 60 POC Glucose Random Glucose 144 H Calcium 9.5 D Total Bilirubin 0.8 AST 79 H ALT 61 H Alkaline Phosphatase 112 B-Natriuretic Peptide 343 H Total Protein 7.7 Albumin 3.9 Urine Color Urine Appearance Urine pH Ur Specific [place] Urine Protein Urine Glucose (UA) Urine Ketones Urine Blood Urine Nitrite Ur Leukocyte Esterase Influenza Type A (PCR) NEGATIVE Influenza Type B (PCR) NEGATIVE RSV RNA Qual (PCR) NEGATIVE SARS-CoV-2 RNA (RT-PCR) NEGATIVE 12/01/24 12/02/24 12/02/24 19:40 06:20 06:56 MCV 78.5 L MCH 25.5 L MCHC 32.5 RDW 16.9 H Plt Count 294 MPV 9.5 Immature Gran % (Auto) Neut % (Auto) Lymph % (Auto) [place] % (Auto) Eos % (Auto) Baso % (Auto) Lymph # (Auto) [place] # (Auto) Eos # (Auto) Baso # (Auto) Abs Immat Gran (auto) Absolute Neuts (auto) Absolute Nucleated RBC 0.000 Nucleated RBC % (auto) 0.0 VBG pH VBG pCO2 VBG pO2 VBG HCO3 VBG O2 Saturation VBG Base Excess Anion Gap 14 Estim Creat Clear Calc 78.8 Estimated GFR > 60 POC Glucose 284 H Random Glucose 294 H Calcium 9.2 Total Bilirubin AST ALT Alkaline Phosphatase B-Natriuretic Peptide Total Protein Albumin Urine Color Yellow Urine Appearance Clear Urine pH 6.5 Ur Specific [place] <= 1.005 Urine Protein Negative Urine Glucose (UA) Negative Urine Ketones Negative Urine Blood Negative Urine Nitrite Negative Ur Leukocyte Esterase Negative Influenza Type A (PCR) Influenza Type B (PCR) RSV RNA Qual (PCR) SARS-CoV-2 RNA (RT-PCR) Assessment and Plan (1) Atrial flutter with rapid ventricular response: Status: Acute Plan 58-year-old female with past medical history of paroxysmal atrial flutter, chronic hypoxic respiratory failure due to COPD, TAMI on BiPAP, chronic diastolic CHF, history of DVT, hyperlipidemia, hypertension, chronic back pain, diabetes, mood disorder, obesity presented with shortness of breath Acute on chronic diastolic CHF due to paroxysmal atrial flutter with rapid ventricular response Improved with IV Lasix and amiodarone Follow-up cardiology Continue Xarelto History of DVT Xarelto Chronic hypoxic respiratory failure due to COPD Stable, continue inhalers Mood disorder Continue lamotrigine, duloxetine Morbid obesity Weight loss recommended Diabetes Insulin sliding scale Full code reason for continued hospitalization: Managing AFib Quality Stroke Does the patient have a stroke diagnosis?: No VTE Prior VTE?: No VTE Risk Level:: Medical - moderate - high VTE Device Contraindication: Treatment Not Indicated VTE Drug Contraindication: N/A - Med Ordered
--- NOTE | 2024-12-02 11:49 | PM.CNCAR ---
History of Present Illness History of Present Illness Date of Service: 12/02/24 Chief complaint: Dyspnea Narrative: This is a cardiology consultation regarding atrial fibrillation. Patient has generally seen by Dr. Orozco but not seen since 2022. It seems that she has a history of atrial flutter for which, she was seen by electrophysiology. She underwent flutter ablation. Apparently, she was on amiodarone and that was later stopped. She is still on anticoagulation. She has not followed up with us since. Current admission is because of shortness of breath. It seems that she was recently admitted for COPD exacerbation on 11/27 and then discharged on antibiotics and steroids. Symptoms got worse in the day of presentation and then she is back. Apparently was wheezing. There was also question of if she had pulmonary edema. She was given IV steroids, DuoNebs, diuretics. Currently, she states that she is feeling better. In this context, she had an episode of atrial fibrillation. Per hospitalist note, it seems that she had IV amiodarone given and then she converted back to sinus rhythm. Currently, she is in sinus rhythm. Patient herself states that she has not had any atrial fibrillation issues since the ablation. Review of Systems Review of Systems: Yes all other systems are reviewed and are negative Constitutional: Constitutional: Reports as per HPI and Reports no additional constitutional complaints Eyes: Eyes: Reports as per HPI and Denies no additional eye complaints ENT: Denies system reviewed and no additional complaints, except as documented and Reports as per HPI Cardiovascular: Cardiovascular: Reports as per HPI, Reports no additional cardiovascular complaints, Denies acrocyanosis, Denies cool extremities, Denies chest pain, Denies leg edema, Denies lightheadedness, Denies palpitations and Reports dyspnea Respiratory: Respiratory: Reports as per HPI, Denies no additional respiratory complaints and Reports dyspnea Gastrointestinal: Gastrointestinal: Reports as per HPI and Denies no additional gastrointestinal complaints Genitourinary: Genitourinary: Reports as per HPI Musculoskeletal: Musculoskeletal: Reports no additional musculoskeletal complaints and Reports as per HPI Integumentary/Breasts: Skin/Breast: Reports system reviewed and no additional complaints, except as docu Neurologic: Reports system reviewed and no additional complaints, except as documented and Reports as per HPI Psychiatric: Psychiatric: Reports no additional psychiatric complaints and Reports as per HPI Endocrine: Endocrine: Reports no additional endocrine complaints, Reports as per HPI and Denies palpitations Hematologic/Lymphatic: Hematologic/Lymphatic: Reports no additional hematologic/lymphatic complaints and Reports as per HPI Allergic/Immunologic: Allergic/Immunologic: Reports no additional allergic/immunologic complaints and Reports as per HPI [facility] Past Medical History Medical History Right heart failure Atrial flutter History of cardioversion Leg edema Chronic respiratory failure requiring treatment with nocturnal BPAP by mask Morbid obesity Diabetes HLD (hyperlipidemia) HTN (hypertension) DVT of axillary vein, acute Arthritis Scoliosis Disc disorder of cervical region Disc disorder of lumbar region COPD (chronic obstructive pulmonary disease) Family History Family History Father Stroke Other Diabetes Surgical History Surgical History History of prolapse of bladder Hx of abdominoplasty History of partial hysterectomy Hx of esophagogastroduodenoscopy Hx of gastric bypass Status post knee replacement Previous back surgery Social History Social History Household Members: Family Household Members Other:: daughter Housing: Apartment Do you presently have visiting nurse or other home services: Yes Alcohol intake: never Comment: PT REFUSING ALL SAFTEY AND FALL PRECAUTIONS Patient Tobacco Use Status: Current everyday Tobacco user Tobacco use type: Cigarette Cigarette Packs Per Day: 1.5 Cigarettes Per Day: 30 Years Smoked: 40 +/- Second Hand Smoke Exposure: No Advance Directives Date on File: 11/24/21 service: No Meds Allergies Allergy/AdvReac Type Severity Reaction Status Date / Time adhesive Allergy Rash Verified 12/01/24 18:27 Active Medications: Current Medications Acetaminophen (Acetaminophen 325 Mg Tablet) 650 mg PO Q6H PRN PRN Reason: Pain, Mild 1-3,fever,headache Albuterol/Ipratropium (Albuterol/Iprat 2.5/0.5mg 3 Ml Ampul.Neb) 3 ml INHALE Q4H PRN PRN Reason: Shortness of Breath/Wheezing Albuterol/Ipratropium (Albuterol/Iprat 2.5/0.5mg 3 Ml Ampul.Neb) 3 ml INHALE RQ4H WHILE AWAKE [place] Last Admin: 12/02/24 11:17 Dose: 3 ml Calcium Carbonate (Calcium Carbonate 750 Mg Tab.Chew) 750 mg PO Q4H PRN PRN Reason: Heartburn Dextrose (Dextrose 50 % 25 Gm/50 Ml Syringe) 25 gm IVPUSH Q15M PRN; Protocol PRN Reason: per Hypoglycemia Standing Ord. Duloxetine HCl (Duloxetine Hcl 60 Mg Capsule.Dr) 60 mg PO DAILY [facility] Last Admin: 12/02/24 08:23 Dose: 60 mg Duloxetine HCl (Duloxetine Hcl 20 Mg Capsule.Dr) 40 mg PO BEDTIME [facility] Fentanyl (Fentanyl 75 Mcg Patch.Td72) 75 mcg TRANSDERMA Q3D [facility] Last Admin: 12/02/24 11:06 Dose: 75 mcg Fluticasone/Umeclidinium/Vilanterol (Fluticasone/Umeclidinium/Vilanterol 100/62.5/25 Blst.W.Dev) 1 puff INHALE RDAILY [facility] Last Admin: 12/02/24 08:13 Dose: Not Given Gabapentin (Gabapentin 100 Mg Capsule) 100 mg PO TID [facility] Last Admin: 12/02/24 08:23 Dose: 100 mg Glucose (Glucose Gel 15 Gm Gel..Gram.) 15 gm PO Q15M PRN; Protocol PRN Reason: per Hypoglycemia Standing Ord. Amiodarone HCl 900 mg/ Sodium (Chloride) 518 mls @ 34.533 mls/hr IVCONT .Q15H1M [facility]; Protocol Last Infusion: 12/02/24 06:15 Dose: 0.5 mg/min, 17.27 mls/hr Insulin Human Lispro (Insulin Lispro 100 Unit/Ml 3 Ml Vial) 0 unit SUBCUT QIDACHS [facility]; Protocol Last Admin: 12/02/24 07:43 Dose: 6 unit Lamotrigine (Lamotrigine 100 Mg Tablet) 200 mg PO BEDTIME [facility] Lamotrigine (Lamotrigine 25 Mg Tablet) 50 mg PO DAILY [facility] Last Admin: 12/02/24 08:23 Dose: 50 mg Loratadine (Loratadine 10 Mg Tablet) 10 mg PO DAILY [facility] Last Admin: 12/02/24 08:23 Dose: 10 mg Magnesium Hydroxide (Milk Of Magnesia 30 Ml Oral.Susp) 30 ml PO DAILY PRN PRN Reason: Constipation Melatonin (Melatonin 3 Mg Tablet) 6 mg PO BEDTIME PRN PRN Reason: Insomnia Nicotine (Nicotine 14 Mg Patch.Td24) 14 mg TRANSDERMA DAILY [facility] Last Admin: 12/02/24 08:18 Dose: 14 mg Ondansetron HCl (Ondansetron Hcl 4 Mg/2 Ml Vial) 4 mg IVPUSH Q8H PRN PRN Reason: Nausea and Vomiting Prednisone (Prednisone 20 Mg Tablet) 40 mg PO DAILY [facility] Last Admin: 12/02/24 08:18 Dose: 40 mg Rivaroxaban (Rivaroxaban 20 Mg Tablet) 20 mg PO DAILY@1700 [facility] Ropinirole HCl (Ropinirole Hcl 0.5 Mg Tablet) 0.5 mg PO TID [facility] Last Admin: 12/02/24 08:22 Dose: 0.5 mg Sodium Chloride (0.9 % Sodium Chloride Flush 3 Ml Syringe) 3 ml IVFLUSH QSHIFT [facility] Last Admin: 12/02/24 07:43 Dose: 3 ml Home Medications ?Medication ?Instructions ?Recorded ?Confirmed ?Last Taken ?Type albuterol sulfate 90 mcg/actuation 2 puff inhalation Q6H PRN 11/24/21 12/01/24 03/21/23 History aerosol inhaler Respiratory Distress duloxetine 40 mg capsule,delayed 40 mg PO BEDTIME 11/24/21 12/01/24 11/30/24 History release sprinkle duloxetine 60 mg capsule,delayed 60 mg PO DAILY 11/24/21 12/01/24 12/01/24 History release ropinirole 0.5 mg tablet 0.5 mg PO TID 05/01/22 12/01/24 12/01/24 History lamotrigine 200 mg tablet 200 mg PO BEDTIME 02/05/23 12/01/24 11/30/24 History lamotrigine 25 mg tablet 50 mg PO DAILY 02/05/23 12/01/24 12/01/24 History fentanyl 75 mcg/hr transdermal 1 patch topical Q3D 11/27/24 12/01/24 12/01/24 History patch fluticasone fur. 100 mcg-umeclid 1 ea inhalation DAILY 11/27/24 12/01/24 12/01/24 History 62.5 mcg-vilant 25 mcg inhalat.powder (Trelegy Ellipta) gabapentin 100 mg capsule 100 mg PO TID 11/27/24 12/01/2412/01/25 History metformin 500 mg tablet 500 mg PO BID 11/27/24 12/01/24 12/01/24 History rivaroxaban 20 mg tablet (Xarelto) 20 mg PO BEDTIME 11/27/24 12/01/24 11/30/24 History acetaminophen 325 mg tablet 650 mg PO BID PRN Pain 12/01/24 12/01/24 Unknown History clonidine HCl 0.1 mg tablet 0.1 mg PO DAILY PRN Anxiety 12/01/24 12/01/24 Unknown History ipratropium 0.5 mg-albuterol 3 mg 3 ml inhalation Q4H PRN Shortness 12/01/24 12/01/24 Unknown History (2.5 mg base)/3 mL nebulization Of Breath Or Wheezing soln prednisone 10 mg tablet See Taper PO DIRECTED 12/01/24 12/01/24 12/01/24 History Physical Exam Vital Signs: Vital Signs: Last Vital Signs Temp 97.5 F 12/02/24 06:15 Pulse 67 12/02/24 11:20 Resp 16 12/02/24 11:20 BP 123/60 12/02/24 08:07 Pulse Ox 95 12/02/24 08:07 O2 Del Method Room Air 12/02/24 08:07 O2 Flow Rate 3 12/02/24 03:42 BMI result Body Mass Index 44.3 Const: General: comfortable and no acute distress Orientation/consciousness: patient oriented x3 HEENT: Other: Unremarkable Head: Yes normal to inspection Neck: Neck: Yes normal visual inspection Chest: Chest palpation & inspection: normal inspection of the chest Resp: Auscultation: wheezes and diminished lung sounds Cardio: Palpation: normal PMI Heart sounds: S1 normal heart sound present, S2 normal heart sound present, no gallops, no murmurs and no rubs GI: Palpation (GI): Soft to palpation Back/Spine/Pelvis: Other: unremarkable Skin: General skin exam: no rashes or lesions noted Neuro: General: patient oriented x3 Extrem: General: Yes normal to inspection Psych: Mental Status: mental status grossly normal Objective Labs and Meds 12/02/24 06:20 12/02/24 06:20 Lab results: Laboratory Results - last 24 hr 12/01/24 12/01/24 12/01/24 18:48 18:49 18:59 WBC 5.5 RBC 4.80 Hgb 12.2 Hct 39.2 MCV 81.7 MCH 25.4 L MCHC 31.1 RDW 17.0 H Plt Count 274 MPV 9.8 Immature Gran % (Auto) 1.1 H Neut % (Auto) 68.7 Lymph % (Auto) 23.9 [place] % (Auto) 5.8 Eos % (Auto) 0.0 Baso % (Auto) 0.5 Lymph # (Auto) 1.3 [place] # (Auto) 0.3 Eos # (Auto) 0.0 Baso # (Auto) 0.0 Abs Immat Gran (auto) 0.06 H Absolute Neuts (auto) 3.8 Absolute Nucleated RBC 0.020 H Nucleated RBC % (auto) 0.4 H VBG pH 7.42 Cancelled VBG pCO2 54 Cancelled VBG pO2 33 Cancelled VBG HCO3 35 H Cancelled VBG O2 Saturation 52.0 Cancelled VBG Base Excess 9.3 Cancelled Sodium 141 Potassium 4.4 Chloride 102 Carbon Dioxide 29 Anion Gap 14 BUN 9 Creatinine 0.65 Estim Creat Clear Calc 111.5 Estimated GFR > 60 POC Glucose Random Glucose 144 H Calcium 9.5 D Total Bilirubin 0.8 AST 79 H ALT 61 H Alkaline Phosphatase 112 Troponin I High Sens 4.3 D B-Natriuretic Peptide 343 H Total Protein 7.7 Albumin 3.9 Urine Color Urine Appearance Urine pH Ur Specific [place] Urine Protein Urine Glucose (UA) Urine Ketones Urine Blood Urine Nitrite Ur Leukocyte Esterase Influenza Type A (PCR) NEGATIVE Influenza Type B (PCR) NEGATIVE RSV RNA Qual (PCR) NEGATIVE SARS-CoV-2 RNA (RT-PCR) NEGATIVE 12/01/24 12/02/24 12/02/24 19:40 06:20 06:56 WBC 6.7 RBC 5.02 Hgb 12.8 Hct 39.4 MCV 78.5 L MCH 25.5 L MCHC 32.5 RDW 16.9 H Plt Count 294 MPV 9.5 Immature Gran % (Auto) Neut % (Auto) Lymph % (Auto) [place] % (Auto) Eos % (Auto) Baso % (Auto) Lymph # (Auto) [place] # (Auto) Eos # (Auto) Baso # (Auto) Abs Immat Gran (auto) Absolute Neuts (auto) Absolute Nucleated RBC 0.000 Nucleated RBC % (auto) 0.0 VBG pH VBG pCO2 VBG pO2 VBG HCO3 VBG O2 Saturation VBG Base Excess Sodium 136 Potassium 4.2 Chloride 96 Carbon Dioxide 30 H Anion Gap 14 BUN 14 Creatinine 0.92 Estim Creat Clear Calc 78.8 Estimated GFR > 60 POC Glucose 284 H Random Glucose 294 H Calcium 9.2 Total Bilirubin AST ALT Alkaline Phosphatase Troponin I High Sens B-Natriuretic Peptide Total Protein Albumin Urine Color Yellow Urine Appearance Clear Urine pH 6.5 Ur Specific [place] <= 1.005 Urine Protein Negative Urine Glucose (UA) Negative Urine Ketones Negative Urine Blood Negative Urine Nitrite Negative Ur Leukocyte Esterase Negative Influenza Type A (PCR) Influenza Type B (PCR) RSV RNA Qual (PCR) SARS-CoV-2 RNA (RT-PCR) ECG Interpretation: In the most recent EKG, sinus bradycardia at 57/Min. In the EKG prior to that, atrial fluter vs fibrillation at a rate of 156/Min. Even earlier, it was 81/Min. Assessment and Plan (1) Atrial fibrillation with rapid ventricular response: Status: Acute (2) Acute exacerbation of chronic obstructive pulmonary disease: Status: Acute Plan High sensitivity troponins within range. Cardiac BNP is slightly high at 277 and 343. In August, it was 112. Earlier values are somewhat similar. Overall, Atrial flutter versus fibrillation with rapid rate episode in setting of COPD exacerbation. She has not on any medications for atrial flutter/fibrillation. Apparently, she states everything was stopped after her ablation. Per notes, she has been on amiodarone, metoprolol/diltiazem. We can keep her on at least oral diltiazem. She is already on anticoagulation. Discussed with . Procedures Date of Service Date of Service: 12/02/24
--- NOTE | 2024-12-02 12:03 | P.DS_ITS ---
DS: Providers Provider Date of Service: 12/02/24 Date of admission: 12/01/24 20:24 Date of discharge: 12/02/24 Primary care physician: Unknown Physician Consults: 12/02/24 00:59 Consult to Cardiology Routine Consulting Provider: [facility] Reason for consultation: AFib with RVR Has provider been notified: Yes DS: Diagnosis Discharge Diagnosis (1) Atrial fibrillation with rapid ventricular response: Status: Acute (2) Acute exacerbation of chronic obstructive pulmonary disease: Status: Acute DS: Summary Hospital Course Hospital Course: from initial hpi: 58-year-old female with pertinent history of atrial flutter on Xarelto, chronic hypoxemic respiratory failure due to COPD on nocturnal BiPAP at baseline, congestive heart failure with preserved ejection fraction, history of DVT on anticoagulation, mixed hyperlipidemia, hypertension, chronic back pain, sza-gulkjpp-trtfuoxel type 2 diabetes mellitus, mood disorder, tobacco use disorder, obesity who presents to the emergency department evaluation of dyspnea. Patient was recently admitted for acute exacerbation of COPD on 11/27 and discharged on 11/28 with p.o. prednisone and p.o. azithromycin. Patient states her symptoms did not improve with p.o. medications. Her dyspnea was worse on the day of presentation and she decided to come back to the hospital. Patient states that dyspnea is worse when she is lying flat and she is unable to sleep at night due to dyspnea. Denies productive cough or fever. Does have wheezing. No chest pain, palpitations, abdominal pain, changes in urinary or bowel habits. In the emergency department, BNP found to be elevated and imaging concerning for pulmonary edema. Patient was given IV steroids and DuoNebs in the ER. hospital course: Patient was admitted for acute on chronic diastolic CHF due to a paroxysmal atrial flutter with rapid ventricular response. Was treated with IV Lasix and amiodarone and converted to normal sinus rhythm. Diuresed well. Was seen by Cardiology recommended continuing Xarelto and adding diltiazem 120 mg daily. Patient is feeling back to baseline will be discharged home. For history of DVT was continued on Xarelto. For chronic hypoxic respiratory failure due to COPD remained stable on inhalers. For mood disorder was continued on lamotrigine on duloxetine. For morbid obesity weight loss recommended. For diabetes was continued on insulin. Time Attestation Discharge Coordination Time (in mins): 37 Quality: Safe Use of Opioids Does Pt have an Active Cancer Diagnosis on the Problem List?: No Quality: Stroke Does the patient have a stroke diagnosis?: No Physical Exam Vital Signs: Vital Signs: Last Vital Signs Temp 97.5 F 12/02/24 06:15 Pulse 67 12/02/24 11:20 Resp 16 12/02/24 11:20 BP 123/60 12/02/24 08:07 Pulse Ox 95 12/02/24 08:07 O2 Del Method Room Air 12/02/24 08:07 O2 Flow Rate 3 12/02/24 03:42 BMI result Body Mass Index 44.3 Const: General: comfortable and no acute distress Orientation/consciousness: patient oriented x3 HEENT: Other: Unremarkable Head: Yes normal to inspection Neck: Neck: Yes normal visual inspection Chest: Chest palpation & inspection: normal inspection of the chest Resp: Auscultation: wheezes and diminished lung sounds Cardio: Palpation: normal PMI Heart sounds: S1 normal heart sound present, S2 normal heart sound present, no gallops, no murmurs and no rubs GI: Palpation (GI): Soft to palpation Back/Spine/Pelvis: Other: unremarkable Skin: General skin exam: no rashes or lesions noted Neuro: General: patient oriented x3 Extrem: General: Yes normal to inspection Psych: Mental Status: mental status grossly normal DS: Data Data Completed and Pending Completed studies during hospitalization [Text1]: Procedures Assistance with Respiratory Ventilation, Less than 24 Consecutive Hours, Continuous Positive Airway Pressure (02/06/23) Quaker of Cardiac Rhythm, Single (02/06/23) Ultrasonography of Heart with Aorta, Transesophageal (02/06/23) Labs on day of discharge: Laboratory Results - last 24 hr 12/01/24 12/01/24 12/01/24 18:48 18:49 18:59 WBC 5.5 RBC 4.80 Hgb 12.2 Hct 39.2 MCV 81.7 MCH 25.4 L MCHC 31.1 RDW 17.0 H Plt Count 274 MPV 9.8 Immature Gran % (Auto) 1.1 H Neut % (Auto) 68.7 Lymph % (Auto) 23.9 Victoria % (Auto) 5.8 Eos % (Auto) 0.0 Baso % (Auto) 0.5 Lymph # (Auto) 1.3 Victoria # (Auto) 0.3 Eos # (Auto) 0.0 Baso # (Auto) 0.0 Abs Immat Gran (auto) 0.06 H Absolute Neuts (auto) 3.8 Absolute Nucleated RBC 0.020 H Nucleated RBC % (auto) 0.4 H VBG pH 7.42 Cancelled VBG pCO2 54 Cancelled VBG pO2 33 Cancelled VBG HCO3 35 H Cancelled VBG O2 Saturation 52.0 Cancelled VBG Base Excess 9.3 Cancelled Sodium 141 Potassium 4.4 Chloride 102 Carbon Dioxide 29 Anion Gap 14 BUN 9 Creatinine 0.65 Estim Creat Clear Calc 111.5 Estimated GFR > 60 POC Glucose Random Glucose 144 H Calcium 9.5 D Total Bilirubin 0.8 AST 79 H ALT 61 H Alkaline Phosphatase 112 Troponin I High Sens 4.3 D B-Natriuretic Peptide 343 H Total Protein 7.7 Albumin 3.9 Urine Color Urine Appearance Urine pH Ur Specific [place] Urine Protein Urine Glucose (UA) Urine Ketones Urine Blood Urine Nitrite Ur Leukocyte Esterase Influenza Type A (PCR) NEGATIVE Influenza Type B (PCR) NEGATIVE RSV RNA Qual (PCR) NEGATIVE SARS-CoV-2 RNA (RT-PCR) NEGATIVE 12/01/24 12/02/24 12/02/24 19:40 06:20 06:56 WBC 6.7 RBC 5.02 Hgb 12.8 Hct 39.4 MCV 78.5 L MCH 25.5 L MCHC 32.5 RDW 16.9 H Plt Count 294 MPV 9.5 Immature Gran % (Auto) Neut % (Auto) Lymph % (Auto) Victoria % (Auto) Eos % (Auto) Baso % (Auto) Lymph # (Auto) Victoria # (Auto) Eos # (Auto) Baso # (Auto) Abs Immat Gran (auto) Absolute Neuts (auto) Absolute Nucleated RBC 0.000 Nucleated RBC % (auto) 0.0 VBG pH VBG pCO2 VBG pO2 VBG HCO3 VBG O2 Saturation VBG Base Excess Sodium 136 Potassium 4.2 Chloride 96 Carbon Dioxide 30 H Anion Gap 14 BUN 14 Creatinine 0.92 Estim Creat Clear Calc 78.8 Estimated GFR > 60 POC Glucose 284 H Random Glucose 294 H Calcium 9.2 Total Bilirubin AST ALT Alkaline Phosphatase Troponin I High Sens B-Natriuretic Peptide Total Protein Albumin Urine Color Yellow Urine Appearance Clear Urine pH 6.5 Ur Specific [place] <= 1.005 Urine Protein Negative Urine Glucose (UA) Negative Urine Ketones Negative Urine Blood Negative Urine Nitrite Negative Ur Leukocyte Esterase Negative Influenza Type A (PCR) Influenza Type B (PCR) RSV RNA Qual (PCR) SARS-CoV-2 RNA (RT-PCR) Discharge Plan Discharge Anticipated Discharge Date/Time: 12/02/24 12:00 Patient Disposition: Home, Self-Care Discharge Diagnosis: afib rvr Referrals: Physician,Unknown J [Primary Care Provider] - 1 Week Discharge Medications: New diltiazem HCl 120 mg capsule,extended release 24hr 120 mg PO DAILY Qty: 90 0RF Continued loratadine 10 mg tablet 10 mg PO DAILY Qty: 90 0RF albuterol sulfate 90 mcg/actuation Hfa Aerosol Inhaler 2 puff INHALATION Q6H PRN (Reason: Respiratory Distress) duloxetine 60 mg Capsule,Delayed Release(Dr/Ec) 60 mg PO DAILY Rx Instructions: TAKE WITH 40MG duloxetine 40 mg Capsule, Delayed Rel Sprinkle 40 mg PO BEDTIME Rx Instructions: TAKE WITH 60MG lamotrigine 200 mg tablet 200 mg PO BEDTIME Rx Instructions: TAKE WITH 50MG lamotrigine 25 mg tablet 50 mg PO DAILY metformin 500 mg tablet 500 mg PO BID gabapentin 100 mg capsule 100 mg PO TID fentanyl 75 mcg/hr patch 72 hour 1 patch topical Q3D Trelegy Ellipta 100-62.5-25 mcg blister with device 1 ea inhalation DAILY Xarelto 20 mg tablet 20 mg PO BEDTIME azithromycin 250 mg tablet 250 mg PO DAILY 5 Days Qty: 5 0RF ipratropium-albuterol 0.5 mg-3 mg(2.5 mg base)/3 mL solution for nebulization 3 ml INHALATION Q4H PRN (Reason: Shortness Of Breath Or Wheezing) clonidine HCl 0.1 mg tablet 0.1 mg PO DAILY PRN (Reason: Anxiety) prednisone 10 mg tablet See Taper PO DIRECTED Taper: Prednisone 30 mg daily for 3 Days and 0 Hour 20 mg daily for 3 Days and 0 Hour 10 mg daily for 3 Days and 0 Hour Rx Instructions: see taper instructions acetaminophen 325 mg Tablet 650 mg PO BID PRN (Reason: Pain) ropinirole 0.5 mg tablet 0.5 mg PO TID Discharge Orders: Discharge Order (Routine); Ordered 12/02/24 Ordered By: Wilder Murdock Diet: Advance to usual diet Activity on Discharge: As tolerated Stand Alone Forms: Patient Portal Discharge page Print Language: Prydeinig Care Plan Goals: manage afib Health Concerns: afib Plan of Treatment: start cardizem 120mg daily Assessment: see above
--- NOTE | 2024-12-02 12:25 | MHC.CM.PN ---
Addendum entered by Jenny Fernandez 12/02/24 13:17: PT WILL DC HOME TODAY WITH NO SERVICES VIA PRIVATE TRANSPORT Original Note: PT FROM HOME, LIVES ALONE RECENT DC HAS IMAGING AIDE DME- ROLLATOR, RAISED TOILET, MEDBOX, LIFE LINE, HOSPITAL BED, SHWR CHAIR, SHWR BAR, HOME O2, BYPAP PT CLAIMS ANDRA JANSEN IS HCP, , PT REPORTS DR RITU DOSHI IS PCP IMM DELIVERED
[2024-12-02] MEDS: dilTIAZem HCL CD 120 MG CAP.ER.DEG PO (13:09)
== END 2024-12-02 15:50 | disposition home or self-care (01) | DRG 190 ==
LOC: HO.ED 20:08 → HO.EDOVER 12-02 05:04
PROVIDERS: Registered Nurse Emergency; Admitting Provider Student in an Organized Health Care Education/Training Program; Emergency Provider Emergency Medicine; Visit Provider Internal Medicine
DX: J44.1 Chronic obstructive pulmonary disease with (acute) exacerbation (principal); I50.33 Acute on chronic diastolic (congestive) heart failure; J96.11 Chronic respiratory failure with hypoxia; Z68.41 Body mass index [BMI] 40.0-44.9, adult; I48.92 Unspecified atrial flutter; E66.813 Obesity, class 3; Z71.3 Dietary counseling and surveillance; M54.9 Dorsalgia, unspecified; G89.29 Other chronic pain; E78.2 Mixed hyperlipidemia; I48.91 Unspecified atrial fibrillation; Z99.81 Dependence on supplemental oxygen; F17.210 Nicotine dependence, cigarettes, uncomplicated; Z71.6 Tobacco abuse counseling; Z20.822 Contact with and (suspected) exposure to COVID-19; Z86.718 Personal history of other venous thrombosis and embolism; Z79.01 Long term (current) use of anticoagulants; Z79.84 Long term (current) use of oral hypoglycemic drugs; Z79.899 Other long term (current) drug therapy
CPT/HCPCS: 0241U; 36415; 71046; 80048; 80053; 81003; 82803; 82947; 83880; 84484; 85025; 85027; 93005; 94640; 94660; 99285; J0282; J0283; J1938; J2919; J3475

== ENCOUNTER → 2024-12-01 18:27 | Outpatient (BNV) | payer OTHER, SELFPAY | PROVIDERS: Emergency Provider Emergency Medicine; Visit Provider Radiology Diagnostic Radiology | DX: J98.09 Other diseases of bronchus, not elsewhere classified (principal) | CPT/HCPCS: 71046 ==

== ENCOUNTER 2024-12-01 20:24 | Outpatient (BNV) | payer OTHER, SELFPAY | END 2024-12-02 03:58 | PROVIDERS: Admitting Provider Student in an Organized Health Care Education/Training Program; Emergency Provider Emergency Medicine; Visit Provider Internal Medicine | DX: R00.1 Bradycardia, unspecified (principal) | CPT/HCPCS: 93010 ==

== ENCOUNTER → 2024-12-01 20:24 | Outpatient (BNV) | payer OTHER, SELFPAY | PROVIDERS: Admitting Provider Student in an Organized Health Care Education/Training Program; Emergency Provider Emergency Medicine; Visit Provider Student in an Organized Health Care Education/Training Program | DX: I50.9 Heart failure, unspecified (principal); J44.1 Chronic obstructive pulmonary disease with (acute) exacerbation | CPT/HCPCS: 99223 ==

== ENCOUNTER → 2024-12-01 20:24 | Outpatient (BNV) | payer OTHER, SELFPAY | PROVIDERS: Admitting Provider Student in an Organized Health Care Education/Training Program; Emergency Provider Emergency Medicine; Visit Provider Internal Medicine | DX: I48.91 Unspecified atrial fibrillation (principal); J44.1 Chronic obstructive pulmonary disease with (acute) exacerbation | CPT/HCPCS: 99223 ==

== ENCOUNTER 2024-12-14 13:52 | Outpatient (AMB) | payer OTHER, SELFPAY ==
--- NOTE | 2024-12-14 14:00 | A.OFFVIS_ITS ---
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 Required: No Allergies adhesive Allergy (Verified 12/01/24 18:27) Rash Medication List - Last Reconciled 12/14/24 by Mitesh Sánchez NP acetaminophen 650 mg PO BID PRN albuterol sulfate 90 mcg/actuation 2 puffs inhalation Q6H PRN clonidine HCl 0.1 mg PO DAILY PRN diltiazem HCl CD 120 mg PO DAILY duloxetine 60 mg PO DAILY duloxetine 40 mg PO BEDTIME fentanyl 75 mcg/hr 1 patch topical Q3D [id number] 100-62.5-25 mcg (Trelegy Ellipta) 1 ea inhalation DAILY gabapentin 100 mg PO TID ipratropium-albuterol 0.5 mg-3 mg(2.5 mg base)/3 mL 3 mL inhalation Q4H PRN lamotrigine 200 mg PO BEDTIME lamotrigine 50 mg PO DAILY loratadine 10 mg PO DAILY metformin 500 mg PO BID rivaroxaban (Xarelto) 20 mg PO BEDTIME ropinirole 0.5 mg PO TID HPI Comments Details: This is a 58-year-old female patient coming in for a follow-up visit. Patient with a history of atrial flutter status post multiple cardioversions and ablation, COPD, congestive heart failure with preserved ejection fraction, hypertension, hyperlipidemia, diabetes, obesity, and current smoker. Patient was recently in the hospital for COPD exacerbation and a flutter with RVR for which patient was treated with IV Lasix and amiodarone and converted to a normal rhythm. Patient was started on diltiazem was discharged home. Today, patient reports feeling well overall and denies any cardiac symptoms including exertional chest pain, shortness of breath, dizziness, orthopnea, PND, leg edema, presyncope, or syncope. Patient does report that she has felt some intermittent palpitations since discharge but nothing prolonged. Patient repor ts compliance with all her medications. [facility] Medical History Chronic lung disease Right heart failure Atrial flutter History of cardioversion Leg edema Chronic respiratory failure requiring treatment with nocturnal BPAP by mask Morbid obesity Diabetes HLD (hyperlipidemia) HTN (hypertension) DVT of axillary vein, acute Arthritis Scoliosis Disc disorder of cervical region Disc disorder of lumbar region COPD (chronic obstructive pulmonary disease) Surgical History History of prolapse of bladder Hx of abdominoplasty History of partial hysterectomy Hx of esophagogastroduodenoscopy Hx of gastric bypass Status post knee replacement Previous back surgery Family History Father Stroke Other Diabetes Social History Household Members: Family Household Members Other:: daughter Housing: Apartment Do you presently have visiting nurse or other home services: Yes Alcohol intake: never Comment: PT REFUSING ALL SAFTEY AND FALL PRECAUTIONS Patient Tobacco Use Status: Current everyday Tobacco user Tobacco use type: Cigarette Cigarette Packs Per Day: 1.5 Cigarettes Per Day: 30 Years Smoked: 40 +/- Second Hand Smoke Exposure: No Advance Directives Date on File: 11/24/21 service: No Review of Systems Const Denies chills, Denies fatigue, Denies fever(s), Denies frequent falls, Denies weakness, Denies weight gain and Denies weight loss ENT Denies dizziness Card Denies chest pain, Denies leg edema, Denies lightheadedness, Denies palpitations, Denies dyspnea, Denies dyspnea on exertion, Denies orthopnea and Denies other (loss of consciousness) Resp Denies cough, Denies dyspnea and Denies dyspnea on exertion GI Denies hematochezia and Denies change in stool character Musc Denies abnormal gait, Denies muscle weakness, Denies numbness, Denies radiating pain into limb and Denies tingling Neuro Denies abnormal gait, Denies dizziness, Denies frequent falls, Denies numbness, Denies tingling and Denies weakness Endo Denies fatigue and Denies palpitations Physical Exam Vital Signs: Last Vital Signs Pulse 71 12/14/24 14:01 BP 122/72 12/14/24 14:01 BMI result Body Mass Index 42.6 Const General: cooperative, healthy appearing, comfortable and no acute distress Orientation/consciousness: patient oriented x3 HEENT Head: Yes normal to inspection Neck Neck: Yes normal visual inspection, Yes trachea midline and Yes supple Chest Chest palpation & inspection: normal inspection of the chest Resp Effort & Inspection: normal respiratory effort Auscultation: clear to auscultation bilaterally, no crackles, no rales, no rhonchi and no wheezes Cardio Jugular venous distension: no JVD Palpation: normal PMI Rate: regular rate Rhythm: regular rhythm Heart sounds: S1 normal heart sound present, S2 normal heart sound present, no click, no gallops, no murmurs and no rubs Peripheral pulses: Peripheral pulses 2+ throughout GI Inspection: Yes normal to inspection Palpation (GI): Soft to palpation Auscultation: normal bowel sounds Skin General skin exam: no rashes or lesions noted Neuro General: patient oriented x3 Extrem General: Yes normal to inspection, No no pedal edema and No calf tenderness Psych Appearance: grossly normal Mental Status: mental status grossly normal Speech and movement: Normal speech and movement present Office Procedures EKG Details: EKG today shows normal sinus rhythm, 71 beats per minute, [place], [place] [id number], Complete Assessment & Plan Assessment & Plan (1) Atrial flutter: Code(s): I48.92 - Unspecified atrial flutter Category: Medical Qualifiers: Atrial flutter type: unspecified Qualified Code(s): I48.92 - Unspecified atrial flutter Plan: EKG today showed normal sinus rhythm. Patient is on Xarelto for full anticoagulation therapy. Patient is currently only on diltiazem for rate control approach. Due to her reports of intermittent palpitations, we will get a Holter monitor to look for any recurrences of AFib/a flutter and it is burden. Clinically euvolemic and stable today. Further treatment based on findings. (2) HTN (hypertension): Code(s): I10 - Essential (primary) hypertension Category: Medical Plan: Blood pressure today is well-controlled. Continue current regimen. Advised monitoring blood pressures at home and keeping a log of it. Ideally, blood pressure goal less than 130/80. (3) Diabetes: Code(s): E11.9 - Type 2 diabetes mellitus without complications Category: Medical Plan: Continue aggressive diabetes management. Ideally, A1c goal less than 7% and LDL goal less than 70. (4) Hospital discharge follow-up: Code(s): Z09 - Encounter for follow-up examination after completed treatment for conditions other than malignant neoplasm Plan: As above. Advised heart healthy diet, regular exercise, losing weight, med compliance, smoking cessation, and aggressive management of vascular risk factors. Follow-up after completion of the tests. In the interim, patient will call the office with any concerns or change in symptoms. This note was generated using voice recognition software. While every effort has been made to ensure accuracy and proper shipping receiving manager, there may be occasional errors that could affect the content or meaning of the described symptoms. Orders: Orders CA echo transthoracic complete Today I48.92 - Unspecified atrial flutter ECG 7 day holter monitor Today I48.92 - Unspecified atrial flutter AMB EKG-In Office Today I48.92 - Unspecified atrial flutter Coding Level of Care Code Est Pt Level 4 (65796) Complex EM visit Add On G2211 Diagnoses Atrial flutter I48.92 Atrial flutter type: unspecified HTN (hypertension) I10 Diabetes E11.9 Hospital discharge follow-up Z09 CPT Codes EKG - CPT: 62977-[id number], Complete ([id number]) Time Spent (min) 32 Comment Time spent in reviewing the chart, test results, assessment, counseling and documentation.
[2024-12-14 14:01] VITALS: BP 122/72; PULSE 71; BMI 42.6
--- OUTSIDE RECORDS SUMMARY | 2024-12-14 14:25 | XMS_ITS | Clinical Summary ---
Author Organization [facility] Address [address] [place] [address] Phone Care Team Providers Care Lithoplate Maker Name Role Phone Dallas José DO Primary Care Provider [phone] Allergies Active Allergy Reactions Criticality Noted Date [...] with ulcer of left lower extremity (CODE) ([facility] V24, [facility] V28) 09/26/2024 Chronic venous hypertension (idiopathic) with other complications of right lower extremity 09/26/2024 Non-pressure chronic ulcer o f other part of left lower leg with fat layer exposed ([facility] V24, [facility] V28) 09/26/2024 PAD (peripheral artery disease) ([facility] [place] V24) Type 2 diabetes mellitus wit h other skin ulcer (CODE) ([facility] [place] V24, [facility] [place] V28) 09/26/2024 Encounters Date Type Department Care Team Description 10/04/2024 2:15 PM EDT - 10/04/2024 11:59 PM EDT Hospital Encounter [facility] Ultrasound [address] [place] [address] Chronic venous hypertension (idiopathic) with ulcer of left lower extremity (CODE) ([facility] [place] V24, [facility] [place] V28); Chronic venous hypertension (idiopathic) with other complications of right lower extremity; Non-pressure chronic ulcer of other part of left lower leg with fat layer exposed ([facility] [place] V24, [facility] [place] [place] V28); PAD (peripheral artery disease) ([facility] [place] V24); Type 2 diabetes mellitus with other skin ulcer (CODE) ([facility] [place] V24, [facility] [place] V28) Discharge Disposition: Home or Self Care 09/29/2024 Telephone [facility] [address] [place] [phone] Gisela Kyle LPN Arterial ultrasound appointment at [facility] 09/28/2024 Telephone [facility] [address] [place] [phone] Alejandra Peña RN 09/28/2024 [facility] [address] [place] [phone] Gisela Kyle LPN Bilateral Venous Ultrasound [facility] 09/26/2024 8:00 AM EST Office Visit [facility] [address] [place] [phone] Ana Sanchez MD Chronic venous hypertension (idiopathic) with ulcer of left lower extremity (CODE) ([facility] [place] V24, [facility] [place] [place] V28) (Primary Dx); Chronic venous hypertension (idiopathic) with other complications of right lower extremity; Non-pressure chronic ulcer of other part of left lower leg with fat layer exposed ([facility] [place] V24, [facility] [place] [place] V28); PAD (peripheral artery disease) ([facility] [place] [place] V24); Type 2 diabetes mellitus with other skin ulcer (CODE) ([facility] [place] V24, [facility] [place] V28) from Last 3 Months Surgical History Surgery Date Site/Laterality Comments OTHER SURGICAL HISTORY PROCEDURE: ARTHROSCOPY PROCEDURE NEC; COMMENT: Knee surgery OTHER SURGICAL HISTORY 03/12/09 PROCEDURE: HISTORICAL PANNICULECTOMY LAPAROSCOPIC GASTRIC BANDING PROCEDURE: LAP ADJUSTABLE GASTRIC BAND Medical History Medical History Date Comments Edema 08/15/2005 DX:Edema Morbid obesity ([facility] [place] V24, [facility] [place] [place] V28) 08/15/2005 DX:Morbid obesity ([facility]); COM MENT: lap band planned January 23 [...] DVT of lower extremity (deep venous thrombosis) ([facility] [place] V24, [facility] [place] [place] V28) 04/13/2009 DX:DVT of lower extremity (deep venous thrombosis) ([facility]) Diabetes mellitus ([facility] [place] V 24, [facility] [place] V28) COPD (chronic obstructive pu lmonary disease) ([facility] [place] V24, [facility] [place] [place] V28) Family History Medical History Relation Name [...] by week 8 Care Plan Impaired Tissue Navya Caal RN [...] ulceration/compr omised skin integrity. No Navya Trejo installation engineer Procedure Name Priority Date/Time Associated Diagnosis Comments [...] Signed Date: 10/04/2024 16:23 ET Workstation ID: [id number] Transcribed By: Self Edit Transcribed Date: 10/04/2024 [...] elevated velocities. ??Biphasic waveforms in the proximal PROGRAM AND RESEARCH COORDINATOR, degrading to monophasic in the distal PROGRAM AND RESEARCH COORDINATOR, but no elevated velocity. ??Monophasic waveforms in the anterior tibial artery and dorsalis pedis with no elevated velocity. Triphasic waveforms in the left common femoral artery with a peak systolic velocity of 205 cm/s. ??Multiphasic waveforms in the profunda branch and throughout the SFA and popliteal artery without a focally elevated velocity. ??Monophasic waveforms in the proximal and mid PROGRAM AND RESEARCH COORDINATOR. ??Monophasic waveforms in the proximal and mid [...] without elevatedvelocities. Biphasic waveforms in the proximal PROGRAM AND RESEARCH COORDINATOR, degrading tomonophasic in the distal PROGRAM AND RESEARCH COORDINATOR, but no elevated velocity. Monophasicwaveforms in the anterior tibial artery and dorsalis pedis with noelevated velocity. Triphasic waveforms in the left common femoral artery with a peak systolicvelocity of 205 cm/s. Multiphasic waveforms in the profunda branch andthroughout the SFA and popliteal artery without a focally elevatedvelocity. Monophasic waveforms in the proximal and mid PROGRAM AND RESEARCH COORDINATOR. Monophasicwaveforms in the proximal and mid SAIMA. [...] Signed Date: 10/04/2024 16:23 ET Workstation ID: [id number] Transcribed By: Self Edit Transcribed Date: 10/04/2024 [...] related to ulceration/compromised skin integrity. 09/26/2024 Insurance [facility] [employer] Member Subscriber Plan / Payer (Ef fective 2019-Present) Name:Shruthi Orosco Relation to Subscriber:Self Name:Shruthi Orosco Payer ID:[id number] Group ID:[id number] Type:Not on file Address: [place] [address] [place] [id number] Care Teams Lithoplate Maker Relationship Specialty Start Date End Date Dallas José DO [address] [place] [phone] PCP - General Family Medicine 09/26/24
--- OUTSIDE RECORDS SUMMARY | 2024-12-14 14:25 | XMS_ITS | Data Portability ---
Author Organization [place] - [facility], [employer] Address [address] [place] [id number] Care Team Providers Care Mine Inspector Federal Name Role Phone SHERRY GUEVARA Cage Supervisor Unavailable Assessment Encounter Date Assessment Date Assessment LastModified by Organization Details LastModified Time 06/15/2024 06/15/2024 Chronic Back Uriah n: - [...] dependence and behavioral and pharmacological treatment options. [email or web address] Not available 06/15/2024 10:31:47 07/04/2024 07/04/2024 The following ti me was spent on todays E/M encounter, including preparing for the visit, reviewing results, seeing the patient, and documentation on the date of service of the encounter: 20 96197 15-29 minutes 95254 30-44 minutes 16445 45-59 minutes 00480 60-74 minutes 59524 10-19 minutes 47251 20-29 minutes 87799 30-39 minutes 31043 40-54 minutes [email or web address] Not available 07/04/2024 10:33:50 08/03/2024 08/03/2024 The following ti me was spent on todays E/M encounter, including preparing for the visit, reviewing results, seeing the patient, and documentation on the date of service of the encounter: 40 69263 15-29 minutes 60125 30-44 minutes 21615 45-59 minutes 29091 60-74 minutes 78569 10-19 minutes 62466 20-29 minutes 16201 30-39 minutes 35297 40-54 minutes [email or web address] Not available 08/05/2024 12:35:02 09/13/2024 09/13/2024 The following ti me was spent on todays E/M encounter, including preparing for the visit, reviewing results, seeing the patient, and documentation on the date of service of the encounter: 45 25089 15-29 minutes 27473 30-44 minutes 58732 45-59 minutes 48621 60-74 minutes 42003 10-19 minutes 39602 20-29 minutes 82782 30-39 minutes 40280 40-54 minutes [email or web address] Not available 09/13/2024 13:04:58 12/09/2024 12/09/2024 Patient discharg e date: 11/28/2024 Patient or caregiver first interactive contact date:(2 business days post D/C); 11/28/2024 Date of 7 or 14 day face to face visit date:12/09/2024 MDM to support level of visit (see rules for transition of care MDM requirements): moderate [email or web address] Not available 12/12/2024 16:26:20 Plan of Treatment Reminders Order Date Submit Date Provider Last Modified By Organization Details Last Modified Time Details Appointments None recorded. Lab HbA1c (hemoglobin A1c), blood 2024 025 COLIN [facility] (Centralized Electronic Ordering - All Locations), Patient Can Go To The Location Of Their Choice, 12:05:40 CMP, serum or plasma 2024 025 COLIN [facility] (Centralized Electronic Ordering - All Locations), Patient Can Go To The Location Of Their Choice, 12:05:39 microalbumi n/creatinin e, mass ratio, urine 2024 025 COLIN [facility] (Centralized Electronic Ordering - All Locations), Patient Can Go To The Location Of Their Choice, 202 5 12:05:39 HbA1c (hemoglobin A1c), blood 2024 025 COLIN [facility] (Centralized Electronic Ordering - All Locations), Patient Can Go To The Location Of Their Choice, [address] 5 10:43:07 CMP, serum or plasma 2024 025 COLIN [facility] (Centralized Electronic Ordering - All Locations), Patient Can Go To The Location Of Their Choice, 5 10:43:08 microalbumi n/creatinin e, mass ratio, urine 2024 025 COLIN [facility] (Centralized Electronic Ordering - All Locations), Patient Can Go To The Location Of Their Choice, [address] 5 10:43:07 Referral wound care referral - urgent for multiple lower extremity venous stasis ulcers [address] [place] [address] [facility], [address] [place], [address], 5 08:45:20 vascular surgeon referral - Venous stasis ulcers, STUART's ordered [address] Vascular Scheduling Dept, [address], [address], 5 11:17:52 occupationa l therapist referral - cervical disc disease left hand weakness 2024 025 pedrito [facility] [place] [facility], [address] [place], [address], 5 15:42:41 physical therapist referral [address] [facility], [address] [place], [address], 4 10:09:12 Procedures None recorded. Surgeries None recorded. Imaging ankle brachial index, complete 2024 [address] [place] [address] [facility], [address] [place], [address], 5 11:00:31 Medication Orders fentanyl 75 mcg/hr transdermal patch 2024 025 [id number], [address] [place], [place], [id number], 5 10:43:21 fentanyl 37.5 mcg/hour transdermal patch 2023 025 [facility] #[id number], [address] [place], [place], [id number], 5 10:19:19 fentanyl 12 mcg/hr transdermal patch 2023 024 [facility] #[id number], [address] [place], [place], [id number], 4 10:07:46 Patient TargetsNo targets recorded. Patient InstructionsNo [...] 93 mg/dL 70-99 normal Not Available [facility] ([facility]) [address] [facility], [place], [address], 10/22/2024 12:05:39 10/21/19 25 10/20/2024 COMP. METAB OLIC PANEL (14) BUN 12 mg/dL 8-27 normal Not Available [facility] ([facility]) [address] [facility], [place], [address], 10/22/2024 12:05:39 10/21/19 25 10/20/2024 COMP. METAB OLIC PANEL (14) creatinine 0.66 mg/dL 0.57-1 .00 normal Not Available [facility] ([facility]) [address] [facility], [place], [address], 10/22/2024 12:05:39 10/21/19 25 10/20/2024 COMP. METAB OLIC PANEL (14) eGFR 100 mL/mi n/1.7 3 >59 normal Not Available [facility] ([facility]) [address] [facility], [place], [address], 10/22/2024 12:05:39 10/21/19 25 10/20/2024 COMP. METAB OLIC PANEL (14) BUN/creatini ne ratio 18 12-28 normal Not Available [facility] ([facility]) [address] [facility], [place], [address], 10/22/2024 12:05:39 10/21/19 25 10/20/2024 COMP. METAB OLIC PANEL (14) sodium 138 mmol/ L 134-14 4 normal Not Available [facility] ([facility]) [address] [facility], [place], [address], 10/22/2024 12:05:39 10/21/19 25 10/20/2024 COMP. METAB OLIC PANEL (14) potassium 4.9 mmol/ L 3.5-5. 2 normal Not Available [facility] ([facility]) [address] [facility], [place], [address], 10/22/2024 12:05:39 10/21/19 25 10/20/2024 COMP. METAB OLIC PANEL (14) chloride 100 mmol/ L 96-106 normal Not Available [facility] ([facility]) [address] [facility] [place] [place], [address], 10/22/2024 12:05:39 10/21/19 25 10/20/2024 COMP. METAB OLIC PANEL (14) carbon dioxide, total 24 mmol/ L 20-29 normal Not Available [facility] ([facility]) [address] [facility] [place] [place], [address], 10/22/2024 12:05:39 10/21/19 25 10/20/2024 COMP. METAB OLIC PANEL (14) calcium 9.4 mg/dL 8.7-10 .3 normal Not Available [facility] ([facility]) [address] [facility] [place], [address], 10/22/2024 12:05:39 10/21/19 25 10/20/2024 COMP. METAB OLIC PANEL (14) protein, total 6.9 g/dL 6.0-8. 5 normal Not Available [facility] ([facility]) [address] [place], [address], 10/22/2024 12:05:39 10/21/19 25 10/20/2024 COMP. METAB OLIC PANEL (14) albumin 3.9 g/dL 3.8-4. 9 normal Not Available [facility] ([facility]) [address] [place], [address], 10/22/2024 12:05:39 10/21/19 25 10/20/2024 COMP. METAB OLIC PANEL (14) globulin, total 3.0 g/dL 1.5-4. 5 Not Available [facility] ([facility]) [address] [facility] [place] [place], [address], 10/22/2024 12:05:39 10/21/19 25 10/20/2024 COMP. METAB OLIC PANEL (14) bilirubin, total 0.3 mg/dL 0.0-1. 2 normal Not Available [facility] ([facility]) [address] [place], [address], 10/22/2024 12:05:39 10/21/19 25 10/20/2024 COMP. METAB OLIC PANEL (14) alkaline phosphatase 119 IU/L 44-121 normal Not Available [facility] ([facility]) [address] [place], [address], 10/22/2024 12:05:39 10/21/19 25 10/20/2024 COMP. METAB OLIC PANEL (14) AST (SGOT) 24 IU/L 0-40 normal Not Available [facility] ([facility]) [address] [facility], [place], [address], 10/22/2024 12:05:39 10/21/19 25 10/20/2024 COMP. METAB OLIC PANEL (14) ALT (SGPT) 21 IU/L 0-32 normal Not Available [facility] ([facility]) [address] [place], [address], 10/22/2024 12:05:39 10/21/19 25 10/22/2024 ALBUM IN/CR EAT RATIO , RANDO M UR creatinine, urine 175.8 mg/dL not estab. normal Not Available [facility] ([facility]) [address] [place], [address], 10/22/2024 12:05:39 10/21/19 25 10/22/2024 ALBUM IN/CR EAT RATIO , RANDO M UR albumin, urine 22.1 ug/mL not estab. Not Available [facility] ([facility]) [address] [place], [address], 10/22/2024 12:05:39 10/21/19 25 10/22/2024 ALBUM IN/CR EAT RATIO , RANDO M UR alb/creat ratio 13 mg/g_ creat 0-29 Alicia l: 0 - 29 Moder ately incre ased: 30 - 300 Sever johanna incre ased: >300 Not Available [facility] ([facility]) [address] [facility], [place], [address], 10/22/2024 12:05:39 10/21/19 25 10/20/2024 HEMOG LOBIN A1C hemoglobin A1C 7.4 % 4.8-5. 6 above high normal Predi abete s: 5.7 - 6.4 Diabe kavita: >6.4 Glyce ramona contr ol for adult s with diabe kavita: <7.0 Not Available [facility] ([facility]) [address] [facility], [place], [address], 10/22/2024 12:05:40 10/20/19 25 10/19/2024 arter ial study , lower extre mity, compl ete No observ ation record ed. [email or web address] (Pulmonary Lab) [address] [place], [address], 10/24/2024 09:08:08 10/25/1910/21/2024 imagi ng/di agnos tic resul t No observ ation record ed. [facility] - [facility] [address] [place], [address], 10/24/2024 11:52:02 Result Notes None recorded. Problems Name Problem SNOMED Code Status Onset Date Resolution Date Notes Provider Name and Address Organization Details Recorded Time Bilateral arthritis of knees 278508097799 9108 Active Concepción Wayne null, [place] - [facility] 13:16:30 Bipolar disorder 60755091 Active Bipolar disorder NOS Concepción [place] null[place] - [facility] 4 13:16:43 Osteoarth ritis 196005920 Active DJD (degenera tive joint disease), lumbar Concepción [place] - [facility] 4 13:17:01 Fibromyal jovani 896622610 Active Concepción [place] - [facility] 4 13:17:13 Posttraum atic stress disorder 29829220 Active Concepción [place] - [facility] 4 13:17:31 Spinal stenosis of lumbar region 75276365 Active Concepción [place] - [facility] 4 13:17:43 Thyroid nodule 877449583 Active Concepción [place] - [facility] 4 13:17:52 Urinary incontine nce 876654960 Active Concepción [place] - [facility] 4 13:18:03 Venous insuffici ency of leg 729705840 Active Concepción [place] - [facility] 4 13:18:13 Anticoagu lant therapy Active Anticoagu lant long-term use Concepción [place] - [facility] 4 13:18:28 Bursitis of right shoulder 380362896652 107 Active Concepción [place] - [facility] 4 14:00:26 Cervical radiculop athy 14045337 Active Cervical radiculop athy - left Concepción [place] - [facility] 4 14:00:42 Chronic back pain 341205737 Active Concepción [place] - [facility] 4 14:00:52 Celluliti s 709290263 Active Concepción [place] - [facility] 4 14:01:17 Deep venous thrombosi s of lower extremity 513194909 Active Chronic deep vein thrombosi s (DVT) Concepción [place] - [facility] 4 14:01:31 Chronic diastolic heart failure 418899982 Active Concepción [place] - [facility] 4 14:01:41 Chronic obstructi ve pulmonary disease 32520627 Active Concepción [place] - [facility] 4 14:01:53 Chronic pain syndrome 904089991 Active Concepción [place] - [facility] 4 14:02:02 Nicotine dependenc e 43184356 Active Cigarette nicotine dependenc e with nicotine- induced disorde Concepción [place] - [facility] 4 14:02:32 Epistaxis care Active Concepción [place] - [facility] 4 14:04:19 Tremor 66238274 Active Essential tremor Concepción [place] - [facility] 4 14:04:34 Fatigue 41590375 Active Concepción [place] - [facility] 4 14:05:08 Hyperpara thyroidis m 34907498 Active Concepción [place] - [facility] 4 14:06:31 Long-term current use of opiate analgesic drug 232375317097 108 Active Concepción [place] - [facility] 4 14:06:43 Low back pain 076562001 Active Concepción [place] - [facility] 4 14:07:58 Lymphedem a 398194213 Active Concepción [place] - [facility] 4 14:08:33 Nausea 682391191 Active Concepción [place] - [facility] 4 14:08:50 Overactiv e urinary bladder 888809182 Active Concepción [place] - [facility] 4 14:09:04 Paroxysma l atrial flutter 227823853 Active Concepción [place] - [facility] 4 14:09:24 Somatic pain 91474359 Active Persisten t moderate somatic symptom disorder with predomina nt pain Concepción [place] - [facility] 4 08:05:45 Restless legs 78360826 Active Concepción [place] - [facility] 4 08:06:07 Recurrent bacterial cystitis 130146621 Active Concepción [place] - [facility] 4 08:06:17 Sciatica 39977856 Active Concepción [place] - [facility] 4 08:06:27 Acquired scoliosis 411866607 Active Concepción [place] - [facility] 4 08:06:42 Obstructi ve sleep apnea syndrome 21046144 Active Severe obstructi ve sleep apnea-hyp opnea syndrome Concepción Black null[place] - [facility] 4 08:06:55 Hyperglyc emia due to type 2 diabetes mellitus 356062333843 109 Active Concepción Black null[place] - [facility] 4 08:07:20 Periphera l 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 2 diabetes mellitus 755148795009 7 Active Concepción Black null[place] - [facility] 4 08:07:31 Chronic ulcer of left lower leg Active 2024 Joanne gomez null, [place] - [facility] 5 13:28:55 Chronic periphera l venous hypertens ion with lower extremity complicat ion 167676359172 105 Active 2024 Joanne gomez null, [place] - [facility] 5 13:28:55 Type 2 diabetes mellitus with ulcer 172100033 Active 2024 Joanne gomez null[place] - [facility] 5 13:28:55 Venous hypertens ion of lower limb 230475826 Active 2024 Joanne gomez null[place] - [facility] 5 13:28:55 Periphera l arterial disease 554635751 Active 2024 Joanne gomez null[place] - [facility] 5 13:28:55 Notes:DJD (degenerative join t disease), lumbar, Encounter for screening colonoscopy, Prophylactic antibiotic - daily Pen VK for lymphedema , prevention of cellulitis, Problem Notes None recorded. Procedures Surgical History Date Name Laterality Status Provider Name and Address Organization Details Recorded Time 4 Most Recent Mammogram completed Concepción Black [place] - [facility] 05/13/2024 08:08:45 Imaging Results Imaging Date Name Status LastModified by Organiz ation Details LastModified Time 10/19/2024 arterial study, lower extremity, complete completed [email or web address] (Pulmonary Lab) [address] [place], [address], 10/24/2024 09:08:08 10/21/2024 imaging/diagn ostic result completed [facility] [address] [place], [address], 10/24/2024 11:52:02 Procedure Notes None recorded. Medical Equipment None Reported. Allergies Allergen ID Allergen Name Allergen Category Reaction Reaction Severity Criticality Documentation Date Start Date Code Code System Note Provider Name and Address Organization Details Recorded Time 6467 adhesive environme nt,medica tion Not available Not available Not available 05/13/2024 38048 UNK bad rash- blist ering /peel ing Concepción acosta [place] [facility] 08:08:00 6468 house dust allergeni c extract environme nt,medica tion Not available Not available Not available 05/13/2024 08570 9 RxNorm copd exac/ sinus conge stion Concepción acosta [place] [facility] 4 08:08:08 Medications Name Sig Start Date Stop Date Status Note LastModified by Organization Details LastModified Time penicilli n V potassium 250 mg tablet 1 tablet by mouth twice daily active Not Available Not Available No t Available cyclobenz aprine 10 mg tablet TAKE 1 TABLET BY MOUTH THREE TIMES DAILY NEEDED FOR MUSCLE SPASM 05/20 completed Not Available Not Available Not Available furosemid e 40 mg tablet 05/20 completed Not Available Not Available Not Available budesonid e 32 mcg/actua tion nasal spray 1 {spray} by nasal route. 05/20 completed Not Available Not Available Not Available metformin 500 mg tablet 500 mg by oral route. 2024 active Not Available Not Available Not Avai lable fentanyl 50 mcg/hr transderm al patch APPLY 1 PATCH TOPICALL Y TO THE SKIN EVERY 72 HOURS 09/13 completed Not Available Not Available Not Available clonidine HCl 0.1 mg tablet 0.1 mg by oral route. 05/20 completed Not Available Not Available Not Available acetamino phen 325 mg tablet TAKE 2 TABLETS BY MOUTH EVERY 6 HOURS NEEDED FOR MODERATE PAIN 2024 active Not Available Not Available Not Avai lable prednison e 10 mg tablet Take 1 tablet every day by oral route. 12/09 completed Not Available Not Available Not Available lamotrigi ne 200 mg tablet 200 mg by oral route. 2024 active Not Available Not Available Not Avai lable nicotine 14 mg/24 hr daily transderm al patch Apply 1 patch every day by transder mal route for 30 days. 12/09 completed Not Available Not Available Not Available ipratropi um 0.5 mg-albute rol 3 mg (2.5 mg base)/3 mL nebulizat ion soln USE 3 ML VIA NEBULIZE R FOUR TIMES DAILY NEEDED FOR WHEEZING OR SHORTNES S OF BREATH active Not Available Not Available No t Available trazodone 50 mg tablet 05/20 completed Not Available Not Available Not Available azithromy chantel 250 mg tablet TAKE 1 TABLET BY MOUTH EVERY DAY 12/09 completed Not Available Not Available Not Available amiodaron e 200 mg tablet 05/20 completed Not Available Not Available Not Available metoprolo l succinate ER 50 mg tablet,ex tended release 24 hr 05/20 completed Not Available Not Available Not Available FreeStyle Lancets 28 gauge 05/20 completed Not Available Not Available Not Available prednison e 20 mg tablet TAKE 2 TABLETS BY MOUTH DAILY FOR 5 DAYS 05/20 completed Not Available Not Available Not Available topiramat e 25 mg tablet 25 mg twice a day by oral route. active Not Available Not Available No t Available tramadol 50 mg tablet TAKE 1 TABLET BY MOUTH TWICE DAILY NEEDED FOR PAIN 06/15 completed Not Available Not Available Not Available bupropion HCl SR 100 mg tablet,12 hr sustained -release 100 mg twice a day by oral route. 2010 active Not Available Not Available Not Avai lable lamotrigi ne 25 mg tablet 25 mg by oral route. 2024 active Not Available Not Available Not Avai lable lorazepam 0.5 mg tablet 0.5 mg every 6 hours by oral route. active Not Available Not Available No t Available OneTouch Ultra Test strips 05/20 completed Not Available Not Available Not Available doxycycli ne monohydra te 100 mg capsule 12/09 completed Not Available Not Available Not Available ropinirol e 0.5 mg tablet TAKE ONE TABLET BY MOUTH THREE TIMES A DAY 2024 active Not Available Not Available Not Avai lable dexametha sone 4 mg tablet TAKE 1 TABLET BY MOUTH TWICE DAILY FOR 3 DAYS 05/20 completed Not Available Not Available Not Available oxycodone 5 mg capsule TAKE 1 CAPSULE BY MOUTH EVERY 6 HOURS NEEDED FOR PAIN 05/20 completed Not Available Not Available Not Available nicotine 21 mg/24 hr daily transderm al patch 05/20 completed Not Available Not Available Not Available docusate sodium 100 mg capsule 05/20 completed Not Available Not Available Not Available gabapenti n 300 mg capsule TAKE 1 CAPSULE BY MOUTH THREE TIMES DAILY 05/20 completed Not Available Not Available Not Available diltiazem CD 120 mg capsule,e xtended release 24 hr TAKE 1 CAPSULE BY MOUTH DAILY active Not Available Not Available No t Available gabapenti n 100 mg capsule TAKE 1 CAPSULE BY MOUTH THREE TIMES DAILY active Not Available Not Available No t Available fentanyl 25 mcg/hr transderm al patch Apply 1 patch every 72 hours by transder mal route for 15 days. 07/04 completed Not Available Not Available Not Available albuterol sulfate HFA 90 mcg/actua tion aerosol inhaler INHALE 2 PUFFS BY MOUTH EVERY 4 HOURS NEEDED FOR WHEEZING OR FOR SHORTNES S OF BREATH (BULK) active Not Available Not Available No t Available fentanyl 75 mcg/hr transderm al patch Apply 1 patch every 72 hours by transder mal route. 2024 active 11/26/19 25 Fentanyl 75 Mcg/hr Patch5 15 Me Con Not Available Not Available Not Available ipratropi um bromide 21 mcg (0.03 %) nasal spray 1 {spray} twice a day by nasal route. 05/20 completed Not Available Not Available Not Available loratadin e 10 mg tablet 10 mg by oral route. 2023 active Not Available Not Available Not Avai lable oxycodone 5 mg tablet TAKE 1 TABLET BY MOUTH EVERY DAY NEEDED FOR PAIN 06/15 completed Not Available Not Available Not Available cyclobenz aprine 5 mg tablet 05/20 completed Not Available Not Available Not Available rosuvasta tin 10 mg tablet 1 tablet by mouth daily 06/15 completed Not Available Not Available Not Available DILT-XR 240 mg capsule, extended release 05/20 completed Not Available Not Available Not Available duloxetin e 20 mg capsule,d elayed release 40 mg by oral route. 2024 active Not Available Not Available Not Avai lable duloxetin e 60 mg capsule,d elayed release 1 capsule by mouth with daily with 20mg capsule active Not Available Not Available No t Available tizanidin e 4 mg capsule 1 capsule by mouth daily active Not Available Not Available No t Available fentanyl 12 mcg/hr transderm al patch Apply 1 patch every 72 hours by transder mal route for 15 days. 07/04 completed Not Available Not Available Not Available Symbicort 160 mcg-4.5 mcg/actua tion HFA aerosol inhaler 05/20 completed Not Available Not Available Not Available Symbicort 80 mcg-4.5 mcg/actua tion HFA aerosol inhaler 05/20 completed Not Available Not Available Not Available oxycodone 10 mg tablet TAKE 1 TABLET BY MOUTH THREE TIMES DAILY 05/20 completed Not Available Not Available Not Available Xarelto 20 mg tablet 20 mg by oral route. 12/02 completed Not Available Not Available Not Available Easy Touch Alcohol Prep Pads active Not Available Not Available No t Available fentanyl 37.5 mcg/hour transderm al patch Apply 1 patch every 72 hours by transder mal route for 30 days. 08/03 completed Not Available Not Available Not Available Trelegy Ellipta 100 mcg-62.5 mcg-25 mcg powder for inhalatio n active Not Available Not Available Not Available Xarelto 2.5 mg tablet Take 1 tablet twice a day by oral route. active Not Available Not Available No t Available OneTouch Ultra2 Meter 05/20 completed Not Available Not Available Not Available OneTouch Delica Plus Lancet 30 gauge 05/20 completed Not Available Not Available Not Available Flowflex COVID-19 Antigen Home Test kit 05/20 completed Not Available Not Available Not Available Vitals Date Recorded Body height Heart rate Oxygen saturation Oxygen saturation in Arterial blood by Pulse oximetry Systolic blood pressure Diastolic blood pressure Provider Name and Address Organization Details Last Updated DateTime 4 160.02 cm 63 /min 98 % 98 % 128 mm[Hg] 72 mm[Hg] Sherry Guevara RN [address] [facility] [address], [place], [address] RAJAN Álvarez - [facility] 4 09:24:25 Date Recorded Body height Body mass index (BMI) Body weight Oxygen saturation Oxygen saturation in Arterial blood by Pulse oximetry Heart rate Systolic blood pressure Diastolic blood pressure Provider Name and Address Organization Details Last Updated DateTime 4 160.02 cm 45.7 kg/m2 255848. 83 g 95 % 95 % 79 /min 120 mm[Hg] 74 mm[Hg] Elida Lee LPN [address] [facility] [address], [facility] [place], [address], [facility] 4 10:11:05 Date Recorded Body height Body mass index (BMI) Body weight Heart rate Oxygen saturation Oxygen saturation in Arterial blood by Pulse oximetry Systolic blood pressure Diastolic blood pressure Provider Name and Address Organization Details Last Updated DateTime 5 160.02 cm 47.3 kg/m2 211657. 16 g 85 /min 99 % 99 % 138 mm[Hg] 82 mm[Hg] Joanne gomez [facility] 5 10:20:23 Date Recorded Body height Body mass index (BMI) Body weight Heart rate Oxygen saturation Oxygen saturation in Arterial blood by Pulse oximetry Systolic blood pressure Diastolic blood pressure Provider Name and Address Organization Details Last Updated DateTime 5 160.02 cm 45.2 kg/m2 532251. 49 g 86 /min 99 % 99 % 144 mm[Hg] 80 mm[Hg] Marimar Mayfield RN [address] [facility] 220, [facility] [place], [address], [facility] 5 11:15:04 Date Recorded Body height Body mass index (BMI) Body weight Heart rate Oxygen saturation Oxygen saturation in Arterial blood by Pulse oximetry Systolic blood pressure Diastolic blood pressure Provider Name and Address Organization Details Last Updated DateTime 5 160.02 cm 43.6 kg/m2 637478. 72 g 69 /min 96 % 96 % 122 mm[Hg] 74 mm[Hg] Joanne gomez [facility] 5 13:24:01 Social History Question Answer Notes LastModified by Organizat ion Details LastModified Time Tobacco Smoking Status Current Every Day Smoker Joanne acosta, [facility] 05/20/2024 10:13:01 How Much Tobacco Do You Smoke? 1 PPD joyce Information not available 05/20/2024 Sex: Unknown Functional Status None recorded. Mental Status None recorded. Family History Nothing Reported. Medical History No medical history recorded. Gynecological History Statement/Question Response Most Recent Mammogram 08/14/2023 Obstetrics History GPAL:G 0 P 0 0 0 0 Immunizations Vaccine Type Date Status Note Provider Nam e and Address Organization Details Recorded Time Pneumococcal conjugate PCV20, polysaccharide JNI417 conjugate, adjuvant, PF 3 completed Joanne [place] null, [place] [facility] 05/20/2024 10:12:30 Tdap 2 completed Concepción Black null, [place] [facility] 05/13/2024 08:11:18 COVID-19, mRNA, LNP-S, PF, 30 mcg/0.3 mL dose 1 completed Joanne Vadim [place], [place] [facility] 05/20/2024 10:12:30 COVID-19, mRNA, LNP-S, PF, 30 mcg/0.3 mL dose 1 completed Joanne [place]ier[place], [place] [facility] 05/20/2024 10:12:30 COVID-19, mRNA, LNP-S, PF, 30 mcg/0.3 mL dose, lenin-sucrose 2 completed Joanne Vadim [place], [place] [facility] 05/20/2024 10:12:30 Tdap 7 completed Joanne [place]adim [place] [facility] 05/20/2024 10:12:30 Influenza, split virus, trivalent, preservative 0 completed Joanne [place]adim [place] [facility] 05/20/2024 10:12:30 Influenza, split virus, trivalent, preservative 1 completed Joanne [place]adim [place] [facility] 05/20/2024 10:12:30 Influenza, split virus, trivalent, preservative 9 completed Joanne [place]im [place] [facility] 05/20/2024 10:12:30 Influenza, split virus, trivalent, preservative 2 completed Joanne [place]adim [place] [facility] 05/20/2024 10:12:30 Influenza, split virus, trivalent, preservative 7 completed Joanne [place] [facility] 05/20/2024 10:12:30 Influenza, split virus, trivalent, preservative 3 completed Joanne [place] null, [place] [facility] 05/20/2024 10:12:30 Influenza, split virus, trivalent, preservative 8 completed Joanne acosta, [place] [facility] 05/20/2024 10:12:30 Influenza, split virus, trivalent, preservative 1 completed Joanne [place] [facility] 05/20/2024 10:12:30 Influenza, split virus, trivalent, PF 5 completed [place]anne [place] [facility] 05/20/2024 10:12:30 Influenza, split virus, trivalent, PF 7 completed Joanne [place]osta, [place] [facility] 05/20/2024 10:12:30 Hep B, adult 2 [facility] [place] [facility] 05/20/2024 10:12:30 Past Encounters Encounter ID Performer Location Encounter Start Date Encounter Closed Date Diagnosis/Indication Diagnosis SNOMED-CT Code Diagnosis ICD10 Code Diagnosis Note [id number] GIOVANNA ROSAS Main Office [address] [place] [address] [address] [facility] [place] [address] 05/20/2024 09:56:32 05/20/2024 10:30:07 Patient new to provider [id number] 31808 Z76.89 The following time was spent on todays E/M encounter, including preparing for the visit, reviewing results, seeing the patient, and documentat ion on the date of service of the encounter: {{ 45#}} 78226 15-29 minutes 45597 30-44 minutes 30139 45-59 minutes 83966 60-74 minutes 67557 10-19 minutes 50099 20-29 minutes 72937 30-39 minutes 13334 40-54 minutes Type 2 paris betes mellitus 62630142 E11.21 Due for hemoglobin A1c at next visit will ascertain about last retinal dilated retinal exam Atrial fibrillation 4943 6004 I48.91 recent ablation per patientrec ords unavailabl triny NOAC Major depr essive disorder 976852616 F32.9 chronic, stable Chronic low back pain [address] José for pain management [id number] [place] Char José DO Main Office [address] [facility],[address] [place] [address] 06/15/2024 09:15:00 06/15/2024 09:55:52 Moderate chronic obstructive pulmonary disease 075216478 J44.9 Paroxysmal atrial fibrillation 348544297 I48.0 Spinal selvin nosis of lumbar region 90811620 M48.062 Uncontroll ed type 2 diabetes mellitus 625796196 E11.65 Continuous dependence on cigarette smoking 3470011846 27561 F17.210 [id number] GIOVANNA ROSAS Main Office [address] [facility],[address] [place] [address] 07/04/2024 09:54:44 07/04/2024 10:43:38 Degeneration of cervical intervertebral disc 94562921 M50.30 Patient would like to start physical therapy for her cervical disc disease. She has used [facility] in the past and would like to return there referral sent. Chronic pain 69566169 G8 9.29 We do long discussion about [...] . Spinal selvin nosis of lumbar region 71220388 M48.061 Patient has failed to cord stimulator s and is on chronic opiates. [id number] GIOVANNA ROSAS Main Office [address] [facility],[address] [place] [address] 08/03/2024 10:14:01 08/03/2024 10:41:06 Chronic pain syndrome 965638589 G89.4 will step dose to next leveldiscu ssed with patient that we will never be able to aleviate all her pain and that she should not do activities that cause painfollow up one month Chronic back pain 830122 002 M54.9 will augment pain control with prn heating pad Weakness of left hand 15 43770857 2661291 R29.898 cervical disc disease with residual left hand weakness referral for OT evaluation Hyperglyce carina due to type 2 diabetes mellitus 0700251656 19109 E11.65 due for labs and follow up discussed with patient [id number] GIOVANNA ROSAS Main Office [address] [facility],[address] [place] [address] 09/13/2024 10:45:15 09/13/2024 11:26:32 Peripheral vascular disease 136327676 I73.9 discussed strict elevation while sittingUrg ent wound care appointmen t, pt agrees to [place] if cannot get in [facility] dGentle soap and water, pat dry discusseds een in ED for cellulitis on abx Chronic ob structive pulmonary disease 09392874 J44.9 GOLD stage 1 chronic obstructiv e [...] carina due to type 2 diabetes mellitus 5159346063 E11.65 due for labs and follow up discussed with patient Paroxysmal atrial fibrillation 528221115 I48.0 chronic stable [id number] GIOVANNA ROSAS [facility] [place] [address] 12/09/2024 13:13:05 12/09/2024 13:38:53 Atrial flutter 3007545 I48.92 on NOAC and calcium channel denilson, has cardiology follow upChronic diastolic heart failure, not interested in dietary modificati ons Chronic bronchitis 53117 004 J42 GOLD stage 1 chronic obstructiv e pulmonary disease, centrilobu lar emphysema, pulmonary nodules, cigarette nicotine dependence , severe obstructiv e sleep apnea on autoBIPAP, allergic rhinitisSt ill smoking 2 ppd, not interested in quittingHa s followup pulmonolog y in [facility] Concerns Section Related Observation LastModified by Organization Detai ls LastModified Time None Recorded Concern Status LastModified by Organization Details LastModified Time None Recorded Advance Directives Directive None Recorded Payers Encounter Date Sequence Insurance Name Policy Number Policy Guillen Covered Member ID Guillen Member ID Guarantor Name 06/15/2024 1 [facility] - DOS ON OR AFTER 2022 - [place]IC[place]V ANTAGE - PPO) Shruthi Melendezrett [id number] Shruthi Kwesi 07/04/2024 1 [facility] - DOS ON OR AFTER 2022 - [place] - [place]PO) Shruthi Lyon Kwesi [id number] Shruthi Kwesi 08/03/2024 1 [facility] - DOS ON OR AFTER 2022 - [place] - [place]PO) Shruthi Melendezrett [id number] Shruthi Kweis 09/13/2024 1 [facility] - DOS ON OR AFTER 2022 - [place]V [place] - PPO) Shruthi Lyon Kwesi [id number] Shruthi Kwesi 12/09/2024 1 [facility] - DOS ON OR AFTER 2022 - [place]V ANT[place] - PPO) Shruthi Melendezrett [id number] Shruthi Orosco Notes Date Note Type Note Provider Name and Address Organization Details Recorded Time 06/15/2024 text/html Shruthi Orosco i s a [...] only to prescribed medications. [place] José, [address] [facility], [facility] [address], [place], [address], [facility] [employer] Primary 06/15/2024 10:32:36 07/04/2024 text/html Here to [...] discomfort she would like to go to [facility]. GIOVANNA ROSAS [address] [place] [address], [place], [address], [facility] [employer] Primary 07/04/2024 10:34:08 08/03/2024 text/html Fasting glucose in the 220 range had ran out of her Metformin beginning of June and recently restartedChronic back pain with failed back syndrome states the fentanyl patches have worked initially with increase dose but then she overdid housework and had worsening pain. States pain worse with standing. No side effects/constipation or jittery GIOVANNA ROSAS [address] [facility], [facility] [address], [place], [address], [facility] [employer] Primary 08/05/2024 12:35:27 09/13/2024 text/html Shruthi is here f or follow up ER, note unavailable and 3 months follow up chronic painShcody was seen in ED for bilateral lower extremity cellulitis and started on Doxycycline Denies fever, warmth or discharge from lower extremities. No chest pain, dyspnea or palpitationsShe is on Fentanyl patches 75 mcg every 72 hours for chronic low back pain, h/o failed back syndromeShe states good pain relief, able to do light house work and ambulate with walker Denies constipaton GIOVANNA ROSAS [address] [place] [address], [facility] [address], [place], [address], [facility] [employer] Primary 09/13/2024 13:05:23 12/09/2024 text/html here for hospita l follow upRecent back to back hospitalizations for COPD exacerbation and then atrial flutterHas cardiology appt next week [facility] Taking Xaltreo but only once dailyPulmonology I need to make follow up appt They discussed me having a test or starting rehab unsure Venous stasis ulcers on legs cleared and cancelled wound center followup Smoking 1-2 ppd smokingDenies chest pain, dyspnea worse then usual or pedal edema GIOVANNA ROSAS [address] [facility], [facility] [address], [place], [address], [place] [facility] 12/12/2024 16:27:19 OBGyn Episode No OBEpisode recorded.
--- OUTSIDE RECORDS SUMMARY | 2024-12-14 14:25 | XMS_ITS | Continuity of Care Document ---
Author Organization [facility], Main Office Address [address] [place] [address] Care Team Providers Care Kindergarten Paraprofessional Name Role Phone SHERRY GUEVARA Foreign Exchange Services Manager Unavailable Assessment Encounter Date Assessment Date Assessment LastModified by Organization Details LastModified Time 12/09/2024 12/09/2024 Patient discharge date: 11/28/2024 Patient or caregiver first interactive contact date:(2 business days post D/C); 11/28/2024 Date of 7 or 14 day face to face visit date: MDM to support level of visit (see rules for transition of care MDM requirements): moderate [email or web address] Not available 12/12/2024 16:26:20 Plan of Treatment Reminders Order Date Submit Date Provider Last Modified By Organization Details Last Modified Time Details Appointments None record ed. Lab None record ed. Referral None record ed. Procedures None record ed. Surgeries None record ed. Imaging None record ed. Medication Orders None record ed. Patient TargetsNo targets recorded. Patient InstructionsNo instructions recorded. Reason for Referral None Reported. Problems Name Problem SNOMED Code Status Onset Date Resolution Date Notes Provider Name and Address Organization Details Recorded Time Bilateral arthritis of knees 040354349518 9108 Active Concepción Wayne null, [place] [facility] 13:16:30 Bipolar disorder 68323392 Active Bipolar disorder NOS Concepción Wayne null, [place] [facility] 13:16:43 Osteoarth ritis 246352027 Active DJD (degenera tive joint disease), lumbar Concepción Wayne null, [place] [facility] 4 13:17:01 Fibromyal jovani 643818649 Active Concepción Wayne null, [place] [facility] 4 13:17:13 Posttraum atic stress disorder 80520756 Active Concepción Wayne null, [place] [facility] 4 13:17:31 Spinal stenosis of lumbar region 72728389 Active Concepción Wayne null, [place] [facility] 4 13:17:43 Thyroid nodule 421145021 Active Concepción Wayne null, [place] [facility] 4 13:17:52 Urinary incontine nce 373937905 Active Concepción Wayne null, [place] [facility] 4 13:18:03 Venous insuffici ency of leg 314714349 Active Concepción Wayne null, [place] [facility] 4 13:18:13 Anticoagu lant therapy Active Anticoagu lant long-term use Concepción Wayne null, [place] [facility] 4 13:18:28 Bursitis of right shoulder 481467489493 107 Active Concepción Wayne null, [place] [facility] 4 14:00:26 Cervical radiculop athy 49267057 Active Cervical radiculop athy - left Concepción Wayne null, [place] [facility] 4 14:00:42 Chronic back pain 103081099 Active Concepción Wayne null, [place] [facility] 4 14:00:52 Celluliti s 748641257 Active Concepción Wayne null, [place] [facility] 4 14:01:17 Deep venous thrombosi s of lower extremity 039199949 Active Chronic deep vein thrombosi s (DVT) Concepción Wayen null, [place] [facility] 4 14:01:31 Chronic diastolic heart failure 226359312 Active Concepción Wayne null, [place] [facility] 4 14:01:41 Chronic obstructi ve pulmonary disease 02319083 Active Concepción Wayne null, [place] [facility] 4 14:01:53 Chronic pain syndrome 867537328 Active Concepción Wayne null, [place] [facility] 4 14:02:02 Nicotine dependenc e 29546018 Active Cigarette nicotine dependenc e with nicotine- induced disorde Concepción Wayne null, [place] [facility] 4 14:02:32 Epistaxis care Active Concepción Wayne null, [place] [facility] 4 14:04:19 Tremor 61502125 Active Essential tremor Concepción Wayne null, [place] [facility] 4 14:04:34 Fatigue 92275908 Active Concepción Wayne null, [place] [facility] 4 14:05:08 Hyperpara thyroidis m 80745347 Active Concepción Wayne null, [place] [facility] 4 14:06:31 Long-term current use of opiate analgesic drug 244463717091 108 Active Concepción Wayne null, [place] [facility] 4 14:06:43 Low back pain 930177992 Active Concepción Wayne null, [place] [facility] 4 14:07:58 Lymphedem a 224214584 Active Concepción Wayne null, [place] [facility] 4 14:08:33 Nausea 827129786 Active Concepción Wayne null, [place] [facility] 4 14:08:50 Overactiv e urinary bladder 923235110 Active Concepción Wayne null, [place] [facility] 4 14:09:04 Paroxysma l atrial flutter 699188409 Active Concepción Wayne null, [place] [facility] 4 14:09:24 Somatic pain 07172108 Active Persisten t moderate somatic symptom disorder with predomina nt pain Concepción Wayne null, [place] [facility] 4 08:05:45 Restless legs 98024899 Active Concepción Wayne null, [place] [facility] 4 08:06:07 Recurrent bacterial cystitis 298672076 Active Concepción Wayne null, [place] [facility] 4 08:06:17 Sciatica 20186197 Active Concepción Wayne null, [place] [facility] 4 08:06:27 Acquired scoliosis 441186691 Active Concepción Wayne null, [place] [facility] 4 08:06:42 Obstructi ve sleep apnea syndrome 82099038 Active Severe obstructi ve sleep apnea-hyp opnea syndrome Concepción Wayne null, [place] [facility] 4 08:06:55 Hyperglyc emia due to type 2 diabetes mellitus 751296668013 109 Active Concepción Black null, [place] [facility] 4 08:07:20 Periphera l 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 2 diabetes mellitus 262716775579 7 Active Concepción Black null, [place] [facility] 4 08:07:31 Chronic ulcer of left lower leg Active 2024 Joanne gomez null, [place] [facility] 5 13:28:55 Chronic periphera l venous hypertens ion with lower extremity complicat ion 443079798631 105 Active 2024 Joanne gomez null, [place] [facility] 5 13:28:55 Type 2 diabetes mellitus with ulcer 117128275 Active 2024 Joanne gomez null, [place] [facility] 5 13:28:55 Venous hypertens ion of lower limb 956795038 Active 2024 Joanne gomez null, [place] [facility] 5 13:28:55 Periphera l arterial disease 566336907 Active 2024 Joanne gomez null, [place] [facility] 5 13:28:55 Notes:DJD (degenerative join t disease), lumbar, Encounter for screening colonoscopy, Prophylactic antibiotic - daily Pen VK for lymphedema , prevention of cellulitis, Problem Notes None recorded. Procedures Surgical History Date Name Laterality Status Provider Name and Address Organization Details Recorded Time 4 Most Recent Mammogram completed Concepción Black [place] [facility] 05/13/2024 08:08:45 Imaging Results None recorded. Procedure Notes None recorded. Medical Equipment None Reported. Allergies Allergen ID Allergen Name Allergen Category Reaction Reaction Severity Criticality Documentation Date Start Date Code Code System Note Provider Name and Address Organization Details Recorded Time 6467 adhesive environme nt,medica tion Not available Not available Not available 05/13/2024 33572 UNK bad rash- blist ering /peel ing Concepción Black null, [place] [facility] 4 08:08:00 6468 house dust allergeni c extract environme nt,medica tion Not available Not available Not available 05/13/2024 18549 9 RxNorm copd exac/ sinus conge nancieon Concepción Tothke null, [place] [facility] 4 08:08:08 Medications Name Sig Start [...] TAKE 1 TABLET BY MOUTH EVERY DAY 05/16 /2025 completed Not Available Not Available Not Available amiodaron e 200 mg tablet 05/20 completed Not Available Not Available Not Available metoprolo l succinate ER 50 mg tablet,ex tended release 24 hr 05/20 completed Not Available Not Available Not Available Lanie Daimaría 28 gauge 05/20 completed Not Available Not [...] Not Available Vitals Date Recorded Body height Body mass index (BMI) Body weight Heart rate Oxygen saturation Oxygen saturation in Arterial blood by Pulse oximetry Systolic blood pressure Diastolic blood pressure Provider Name and Address Organization Details Last Updated DateTime 5 160.02 cm 43.6 kg/m2 143375. 72 g 69 /min 96 % 96 % 122 mm[Hg] 74 mm[Hg] Joanne gomez [facility] 5 13:24:01 Social History Question Answer Notes LastModified by Organizat ion Details LastModified Time Tobacco Smoking Status Current Every Day Smoker Joanne acosta [facility] 05/20/2024 10:13:01 How Much Tobacco Do You Smoke? 1 [facility] Information not available 05/20/2024 Sex: Unknown Functional Status None recorded. Mental Status None recorded. Family History Nothing Reported. Medical History No medical history recorded. Gynecological History Statement/Question Response Most Recent Mammogram 08/14/2023 Obstetrics History GPAL:G 0 P 0 0 0 0 Immunizations Vaccine Type Date Status Note Provider Nam e and Address Organization Details Recorded Time Pneumococcal conjugate PCV20, polysaccharide FWN148 conjugate, adjuvant, PF 3 completed Joanne [place] [...] Primary 05/20/2024 10:12:30 Tdap 7 completed Joanne Bur[place] null, [place] [facility] 05/20/2024 10:12:30 [...] trivalent, preservative 1 completed Joanne Fierro null, [place] [facility] 05/20/2024 10:12:30 Influenza, split virus, trivalent, PF 5 completed Joanne Fierro [place], [place] [facility] 05/20/2024 10:12:30 Influenza, split virus, trivalent, PF 7 completed Joanne [place] null, [place] [facility] 05/20/2024 10:12:30 Hep B, adult 2 completed Joanne [place] null[place] [facility] 05/20/2024 10:12:30 Past Encounters Encounter ID Performer Location Encounter Start Date Encounter Closed Date Diagnosis/Indication Diagnosis SNOMED-CT Code Diagnosis ICD10 Code Diagnosis Note [id number] GIOVANNA ROSAS Main Office [address] [place], [place] [address] [place] [address] 12/09/2024 13:13:05 12/09/2024 13:38:53 Atrial flutter 4880612 I48.92 on NOAC and calcium channel denilson, has cardiology follow upChronic diastolic heart failure, not interested in dietary modificati ons Chronic bronchitis 07866 004 J42 GOLD stage 1 chronic obstructiv e pulmonary disease, centrilobu lar emphysema, pulmonary nodules, cigarette nicotine dependence , severe obstructiv e sleep apnea on autoBIPAP, allergic rhinitisSt ill smoking 2 ppd, not interested in quittingHa s followup pulmonolog y in [facility] Concerns Section Related Observation LastModified by Organization Detai ls LastModified Time None Recorded Concern Status LastModified by Organization Details LastModified Time None Recorded Payers Encounter Date Sequence Insurance Name Policy Number Policy Guillen Covered Member ID Guillen Member ID Guarantor Name 12/09/2024 1 [facility] - DOS ON OR AFTER 2022 - MEDICARE [place]ADV ANTAGE - PPO) Shruthi Orosco [id number] Shruthi Orosco Notes Date Note Type Note Provider Name and Address Organization Details Recorded Time 12/09/2024 text/html here for hospita l follow upRecent back to back hospitalizations for COPD exacerbation and then atrial flutterHas cardiology appt next week [facility] Taking Xaltreo but only once dailyPulmonology I need to make follow up appt They discussed me having a test or starting rehab unsure Venous stasis ulcers on legs cleared and cancelled wound center followup Smoking 1-2 ppd smokingDenies chest pain, dyspnea worse then usual or pedal edema GIOVANNA ROSAS [address] [facility] [address], [place], [address], [place] [facility] 12/12/2024 16:27:19 OBGyn Episode No OBEpisode recorded.
--- OUTSIDE RECORDS SUMMARY | 2024-12-14 14:25 | XMS_ITS ---
Care Plan Created on: December 14, 2024 Kwesi, Shruthi : 1965 Sex: Female Author Organization [facility] Address [address] [place] [address] Phone Care Team Providers Care Sewing Machine Operator Semiautomatic Name Role Phone Dallas José DO Primary Care Provider [phone] Active Problems Problem Noted Date Diagnosed Date Chronic venous hypertension (idiopathic) with ulcer of left lower extremity (CODE) ([facility] [place], [facility] V28) 09/26/2024 Chronic venous hypertension (idiopathic) with other complications of right lower extremity 09/26/2024 Non-pressure chronic ulcer o f other part of left lower leg with fat layer exposed ([facility] [place], [facility] V28) 09/26/2024 PAD (peripheral artery disease) ([facility] V24) Type 2 diabetes mellitus wit h other skin ulcer (CODE) ([facility] [place], [facility] V28) 09/26/2024 Additional Health Concerns Active Problems [...] Care Plan Impaired Tissue No Navya Trejo insights manager volume breakdown reduced by X% by week 4 Care Plan Impaired Tissue No Navya Trejo insights manager volume breakdown reduced by X% by week 8 Care Plan Impaired Tissue No Lalitot, Navya E, insights manager volume breakdown reduced by X% by week [...]
--- OUTSIDE RECORDS SUMMARY | 2024-12-14 14:25 | XMS_ITS | Data Portability ---
Author Organization [employer]Q, Pr in - [employer] Address [address] [place] [phone] Care Team Providers Care Global Compensation Analyst Name Role Phone HIM CCA OTHER LATOYA DOSHI Primary Care Provider Assessment Encounter Date Assessment Date Assessment LastModified by Organization Details LastModified Time 03/31/2023 03/31/2023 I provided real -time medical direction via phone for this encounter, and was available for additional phone based assistance as needed. I have reviewed and agree with the Assessment and Plan as documented by the Machine Shop Lead Man. Patient given the opportunity to ask questions. Advised if develops worsening CP/severe SOB/turning blue/uncontrolle d n/v/d or black/bloody emesis or stool/ AMS/ syncope/ hi fever to call 911- verbalized understanding of instructions [email or web address] Not available 03/31/2023 16:38:11 08/22/2023 08/22/2023 I provided real -time medical direction via phone for this encounter, and was available for additional phone based assistance as needed. I have reviewed and agree with the Assessment and Plan as documented by the Machine Shop Lead Man. Patient given the opportunity to ask questions. [...] recorded. Lab rapid flu (A+B) 2022 023 [place] [facility], [address] [place] [address], [id number] 3 19:58:40 rapid strep group A, throat 2022 023 [email or web address] [facility], [address] [place] [address], [id number] 3 19:58:18 streptococc us group A, culture, throat 2022 023 COLIN [facility] (Centralized Electronic Ordering - All Locations), Patient Can Go To The Location Of Their Choice, [id number] 3 07:41:24 rapid strep group A, throat 2022 023 [facility], [address] [place] [address], [id number] 3 19:59:12 rapid SARS CoV 2 Ag, QL IA, respiratory specimen 2022 023 [email or web address] 0 [facility], [address] [place] [address], [id number] 3 14:49:50 Referral None recorded. Procedures None recorded. Surgeries None recorded. Imaging electrocard iogram 2022 023 [email or web address] 0 [facility], [address] [place] [address], [id number] 3 14:49:50 Medication Orders ketorolac 30 mg/mL (1 mL) injection solution 2023 024 [email or web address] [id number], [address], [place], [id number], 4 21:32:07 albuterol sulfate 2.5 mg/3 mL (0.083 %) solution for nebulizatio n 2022 023 [email or web address] 0 Not available 14:49:50 prednisone 20 mg tablet 2022 023 [email or web address] 0 Not available 14:49:50 prednisone 20 mg tablet 2022 023 COLIN [facility] #[id number], [address], [place], [id number], 3 14:50:03 Patient TargetsNo targets recorded. Patient InstructionsNo instructions recorded. Reason for Referral None Reported. Results Created Date Observation Date Name Description Value Unit Range Abnormal Flag Note LastModifiedBy Organization Detail LastModifiedTime 03/31/2003/31/2023 rapid SARS CoV 2 Ag, QL IA, respi rator y speci men rapid SARS CoV 2 Ag, QL IA, respiratory specimen negati ve Not Available [facility] ed [address] [place] [address], [id number] 03/31/2023 14:06:51 07/17/20 23 07/17/2023 GROUP A STREP CULT. specimen description THROAT SWAB Not Available [facility] (Centralized Electronic Ordering - All Locations) Patient Can Go To The Location Of Their Choice, [id number] 07/20/2023 07:41:24 07/17/20 23 07/17/2023 GROUP A STREP CULT. special requests NONE Not Available [facility] (Centralized Electronic Ordering - All Locations) Patient Can Go To The Location Of Their Choice, [id number] 07/20/2023 07:41:24 07/17/20 23 07/20/2023 GROUP A STREP CULT. culture NO GROUP A BETA HEMOLY TIC STREPT OCOCCI ISOLAT ED Not Available [facility] (Centralized Electronic Ordering - All Locations) Patient Can Go To The Location Of Their Choice, [id number] 07/20/2023 07:41:24 07/17/20 23 07/20/2023 GROUP A STREP CULT. report status FINAL 2022 Not Available [facility] (Centralized Electronic Ordering - All Locations) Patient Can Go To The Location Of Their Choice, [id number] 07/20/2023 07:41:24 07/17/20 23 07/17/2023 rapid strep group A, throa t Strep negati ve Not Available [facility] ed [address] [place] [address], [id number] 07/17/2023 19:58:58 07/17/20 23 07/17/2023 rapid flu (A+B) Flu negati ve Not Available [facility] ed [address] [place] [address], [id number] 07/17/2023 19:56:02 07/17/20 23 07/17/2023 rapid strep group A, throa t Strep negati ve Not Available [facility] ed [address] [place] [address], [id number] 07/17/2023 19:56:05 02/28/20 23 02/27/2023 elect rocar diogr am No observ ation record ed. [address], [phone] 02/27/2023 14:53:09 03/31/20 23 03/31/2023 elect rocar diogr am No observ ation record ed. [email or web address] [address], [phone] 03/31/2023 14:49:47 Result Notes None recorded. Procedures Surgical History None recorded. Imaging Results Imaging Date Name Status LastModified by Organization Details LastModified Time 02/27/2023 electrocardiogram completed [address], [phone] 02/27/2023 14:53:09 03/31/2023 electrocardiogram completed [email or web address] [address], [address] 03/31/2023 14:49:47 Procedure Notes None recorded. Medical Equipment None Reported. Allergies Allergen ID Allergen Name Allergen Category Reaction Reaction Severity Criticality Documentation Date Start Date Code Code System Note Provider Name and Address Organization Details Recorded Time 3214 adhesive tape environme nt,medica tion rash Not available Not available 03/31/2023 [id number] UNK Rubi Mesa MD [address] [facility],[address], [place], [address], JACKY KELLER 3 17:24:31 Medications Name [...] Available Not Available No t Available FreeStyle [place] Lite kit CHECK GLUCOSE TWICE DAILY active [...] Not Available No t Available Monica Andre [facility] spacer active Not Available Not Available [...] % 157.48 cm 130 /min 98.4 [degF] 333856 g 128 mm[Hg] 84 mm[Hg] Not Available [facility] - production 3 17:29:44 Date Recorded Body temperature Body height Oxygen saturation Oxygen saturation in Arterial blood by Pulse oximetry Heart rate Body weight Respiratory rate Systolic blood pressure Diastolic blood pressure Provider Name and Address Organization Details Last Updated DateTime 3 97.8 [degF] 160.02 cm 95 % 95 % 49 /min 878874. 264 g 18 /min 118 mm[Hg] 73 mm[Hg] Not Available [facility] - production 3 14:03:02 Date Recorded Respiratory rate Heart rate Body height Oxygen saturation Oxygen saturation in Arterial blood by Pulse oximetry Body temperature Body weight Systolic blood pressure Diastolic blood pressure Provider Name and Address Organization Details Last Updated DateTime 3 20 /min 65 /min 162.56 cm 97 % 97 % 98.1 [degF] 373876. 6 g 128 mm[Hg] 84 mm[Hg] Not Available [employer] - production 3 15:25:16 Date Recorded Body weight Body height Oxygen saturation Oxygen saturation in Arterial blood by Pulse oximetry Body temperature Heart rate Respiratory rate Systolic blood pressure Diastolic blood pressure Provider Name and Address Organization Details Last Updated DateTime 3 932325. 08 g 160.02 cm 99 % 99 % 98.5 [degF] 81 /min 18 /min 132 mm[Hg] 85 mm[Hg] Not Available [employer] - production 3 19:55:06 Date Recorded Heart rate Body temperature Respiratory rate Oxygen saturation Oxygen saturation in Arterial blood by Pulse oximetry Systolic blood pressure Provider Name and Address Organization Details Last Updated DateTime 4 73 /min 98.8 [degF] 18 /min 97 % 97 % 130 mm[Hg] Not Available [employer] 4 21:21:50 Social History None recorded. Functional [...] Note 1643 Estella Rodriguez MD Main - [address] [phone] 12/11/2021 13:57:22 04/01/2022 15:51:42 Angina pectoris [id number] I20.9 Pt with recent incidental diagnosis of [...] agrees to ED trasport, expect called to [facility]. Full dose ASA given. I have reviewed and agree with the assessment and plan as documented by the human resources executive assistant. I provided real time medical direction for this encounter and was immediatel y available to provide additional phone based assistance as needed. [id number] Niall Cardoso MD [facility] - [address] [phone] 02/27/2023 14:50:04 02/28/2023 11:15:47 Atrial flutter [id number] I48.92 [id number] Lester Villalobos MD [facility] - [address] [phone] 03/15/2023 17:29:32 03/16/2023 07:18:40 Paroxysmal atrial flutter [id number] I48.92 As noted, we were called to see this patient regarding concerns of feeling unwell. Evaluation in the field was performed by my human resources executive assistant colleague, as noted above, I provided real-time [...] and the need for complicate d treatment. [id number] Rubi Mesa MD Main - [address] [phone] 03/31/2023 14:02:46 04/01/2023 11:11:05 Dyspnea 400354435 R06.00 copd exacerbati on-wheezin g improved with nebulizer- see note below patient is refusing ER care so I will put her on a short course of prednisone and increase her albuterol to 2 puffs every 4 hours while she is feeling short of breath. I requested CRC reach out to her physician primary care sports medicine about getting her follow-up with her PCP [facility] and getting home nebulizer. Chest pain 55765916 R07. 9 Patient declines aspirin due to [...] of ACS is beyond the scope of [facility] and I expressed my concern for [...] need to follow-up with her PCP tomorrow [id number] Clovis Petersen MD Main - [facility] [address] [place] [phone] 06/02/2023 15:25:14 06/02/2023 22:32:25 Low back pain [id number] M54.50 This 57-[facility]-ol d [facility]. She has a history of chronic back pain but OTC medication s haven't been effective. I ordered Toradol 30 mg IM. She will follow-up with her PCP. The patient agreed with this plan. [id number] EDILSON ROACH MD Main - [facility] [address] [place] [phone] 07/17/2023 19:55:00 07/18/2023 17:23:41 Sore throat [id number] J02.9 Evaluation in the field was performed by my human resources executive assistant colleague, as noted above, I provided real-time [...] CP, fever or any other concerns _ [id number] Ilana Reeves MD Main - [facility] [address] [place] [phone] 08/22/2023 21:21:46 08/23/2023 15:30:12 Strain of neck muscle [id number] S16.1XXA Health Concerns Section Related Observation LastModified by Organization Detai ls LastModified Time None Recorded Concern Status LastModified by Organization Details LastModified Time None Recorded Advance Directives Directive None Recorded Payers Insurance Date Sequence Insurance Name Policy Number Policy Guillen Covered Member ID Guillen Member ID Guarantor Name 02/27/2023 1 [facility] - DOS PRIOR TO 2022 - DUAL ELIGIBLE (MEDICARE REPLACEMENT/ADV ANTAGE - HMO) Shruthi Orosco [id number] Shruthi Orosco 11/26/2023 1 [facility] - DOS ON OR AFTER 2022 - DUAL ELIGIBLE - LONGTERM OPTIONS AND ONE CARE (MEDICARE REPLACEMENT/ADV ANTAGE - HMO) Shruthi Orosco [id number] Shruthi Orosco Notes Date Note Type Note [...] .................... .................... .................... .................... .................... .................... . Machine Shop Lead Man Note From Chao Zhang: PT caox3 complains [...] advises pt to go to ED [facility]. [facility] arrives to transport pt to [place] ED. Care transferred to EMS. .................... .................... .................... .................... .................... .................... .................... . Disposition: Fulfilled Lester Villalobos MD [address] [place] [address],[address], [place], [phone], [employer] 03/16/2023 15:03:34 03/31/2023 text/html HPI: PT has [...] med seeking behavior, and was asking if [facility] could prescribe pain medications. [facility] has a call out to members PCP for a nebulizer machine. Member would like to be evaluated. .................... .................... .................... .................... .................... .................... .................... . Machine Shop Lead Man Note From Paradise Parker: Sent to a [...] nebulizer in the past, and [facility] is following up with PCP about a [...] test: neg; 12 lead ECG: uploaded to [facility]; [facility] consulted and pt is advised she needs to be transported to ED for a cardiac workup. Pt does not want to be transported to ED, but agrees to think about it. Pt states she doesn't want to go to ED because she has been 4 times, she doesn't have a ride home, and doesn't have anyone to watch her animals. [facility] orders Albuterol nebulized treatment. Pt reports feeling better after nebulized treatment, but chest pressure remains. Lung sounds: decreased expiratory wheezing; [facility] consulted and pt agrees to be transported to ED, but then refuses transport again. Risks of refusing transport for further eval/treatment explained. Pt states she understands risks and signs refusal signature. [facility] orders Prednisone 60mg PO, and sends script [...] . Disposition: Fulfilled Rubi Mesa MD [address] [facility],[address], [place], [address], [facility] - [employer] 03/31/2023 17:24:57 06/02/2023 text/html HPI: 57 yo [...] Took Tylenol 3am today. Clovis Petersen MD [address] [place] [address],[address], [place], [address], [employer] 06/02/2023 15:28:28 07/17/2023 text/html HPI: 57 yo [...] .................... .................... .................... .................... .................... .................... . Machine Shop Lead Man Note From Paradise Parker: Sent to a [...] flu test: neg; Rapid strep test: neg; [facility] consulted and orders strep culture to be sent to [facility]. Pt advised to drink tea with honey, gargle with warm salt water, and give throat a rest by continuing with soup and fluids (avoiding solid foods) for 24 hrs. Red flags discussed. Pt has no further questions. [facility] Lab Orders: rapid flu (A+B): Performed rapid strep group A, throat: Performed streptococcus group A, culture, throat: Performed rapid strep group A, throat: Not Performed Comment: extra order .................... .................... .................... .................... .................... .................... .................... . Disposition: Jose EDILSON ROACH MD [address] [facility],[address], [place], [address], [employer] 07/17/2023 21:30:25 08/22/2023 text/html CRC Nurse Triage Notes (Mian Lewis): Chief Complaints: Pain PMH: Heart Disease, CHF, COPD/Asthma, Hypertension Allergies: Unknown Comments: Copy Clerk verified the member's name//address and phone number - Education provided on the response time and the member was advised to monitor reported s/s and seek emergency treatment if needed. Member reports a hx of neck, upper back and left/right arm pain - Denies any new injuries or trauma - Denies fever - Member pain management. .................... .................... .................... .................... .................... .................... .................... . Machine Shop Lead Man Note From Marimar Mccormack: Community Machine Shop Lead Man Aquiles Mccormack CCA1 dispatched to a [facility] for a 57 yof C/O [...] assessed and treated by them. Equal bilateral truss driver helper strength, no arm drift, CMS present and [...] . Disposition: Fulfilled Ilana Reeves MD [address] [facility],[address], [place], [address], [employer] 08/22/2023 21:32:30 OBGyn Episode No OBEpisode recorded.
== END 2024-12-14 14:36 | disposition home or self-care (01) ==
LOC: HO.HCS 13:55
DX: I48.92 Unspecified atrial flutter (principal); I10 Essential (primary) hypertension; E11.9 Type 2 diabetes mellitus without complications; Z09 Encounter for follow-up examination after completed treatment for conditions other than malignant neoplasm
CPT/HCPCS: 93010; 99214; G2211

== ENCOUNTER → 2024-12-14 13:52 | Outpatient (BNVA) | payer OTHER, SELFPAY | DX: Z09 Encounter for follow-up examination after completed treatment for conditions other than malignant neoplasm (principal); I48.92 Unspecified atrial flutter; I10 Essential (primary) hypertension; E11.9 Type 2 diabetes mellitus without complications | CPT/HCPCS: 93005; 99212 ==

== ENCOUNTER → 2025-03-15 14:02 | Outpatient (REF) | payer OTHER, SELFPAY ==
--- NOTE | 2025-03-15 14:05 | CA_ITS ---
Transthoracic Echocardiogram Patient (Last, First, Middle): Shruthi Orosco, Gender: Female Date of : 1965 Age: 59 Procedure Date: 03/15/2025 Procedure Type: Transthoracic Echocardiogram Location: OP Height: 160.02 cm Weight: 108.86 kg BSA: 2.09 m2 Heart Rate: 71 bpm BP: 122 / 72 mmHg Paper Inspector: BUZZ Referring MD: Mitesh Sánchez NP [place] Supervisor: David Mcqueen MD Symptoms: I48.92 Study Quality: Fair but adequate ECG Rhythm: Sinus Conclusions: - 1. Normal LV ejection fraction of 65-70% with grade 2 diastolic dysfunction 2. Mild aortic and mitral regurgitation 3. Upper limits of normal RV systolic pressure with mildly elevated right atrial pressures Findings Procedure Information The quality of the study was technically difficult. The study quality is limited by patients body habitus. Left Ventricle Normal left ventricular size, thickness, and systolic function. The visually estimated ejection fraction is between 65-70%. Spectral Doppler is indicative of a pseudonormal filling pattern. E/E prime ratio is >15, consistent with elevated filling pressures. Evidence suggests grade II (moderate) diastolic dysfunction. Right Ventricle The right ventricle was not well visualized. Atria The left atrium is normal in size. There is no evidence of interatrial shunt. The right atrium was not well visualized. Aortic Valve The aortic valve was not well visualized. There is no aortic valve stenosis. There is mild aortic valve regurgitation. Mitral Valve There is mild anterior and moderate posterior mitral leaflet thickening. There is mild mitral annular calcification. There is mild mitral valve regurgitation. There is no mitral valve stenosis. Pulmonic Valve The pulmonic valve was not well visualized. Tricuspid Valve Likely normal tricuspid valve structure and function. There is mild tricuspid valve regurgitation. Mildly elevated right atrial pressure. There is no evidence of pulmonary hypertension. Great Vessels There is no dilatation of the ascending aorta measuring 3.40 cm. Venous The inferior vena cava is mildly dilated and collapses less than 50% with inspiration. Pericardium/Pleural The pericardium was not well visualized. Prior Study Comparison Changes noted compared to prior study dated: 02/09/2023. compared to last transthoracic echocardiogram, biatrial chamber size seems to have improved. Mitral regurgitation in his mild. RV systolic pressure has improved Measurements 2D Linear Measurements IVSd: 0.88 0.6-0.9/0.6-1.0 cm LVIDd: 5.74 3.9-5.3/4.2-5.9 cm LVIDd Index: 2.75 2.4-3.2/2.2-3.1 cm/m2 LVIDs: 3.03 2.0-3.6 cm LVPWd: 0.83 0.7-1.1 cm LA Diam: 4.40 2.7-3.8/3.0-4.0 cm LAIDs Index: 2.11 1.5-2.3 cm/m2 LV Mass: 232.48 67-162/88-224 g LV Mass Index: 111.24 43-95/49-115 g/m2 LVOT Diam: 2.00 3.0+(-)1.3 cm 2D Systolic Function EF 4C: 65.80 >55% EF 2C: 69.90 >55% EF BiP: 67.90 >55% Mitral Valve MV Pk E: 1.20 MV PK A: 1.10 MV Decel Time: 201.00 E/A: 1.10 E'Lateral: 7.83 E'Medial: 7.62 E/E' Med: 15.70 E/E' Lat: 15.30 PHT: 59.00 MVA PHT: 3.73 Decel Merrick: 5.98 Aortic Valve AoV Pk Carlos: 1.49 AoV Pk Grad: 9.00 CRISELDA: 3.35 AI Pk Carlos: 3.66 AI VTI: 1.63 AI Merrick: 2.32 LVOT LVOT Pk Carlos: 1.53 LVOT Mn Carlos: 1.05 LVOT VTI: 0.32 LVOT Pk Grad: 9.00 LVOT Mn Grad: 5.00 LVOT Diam: 2.00 LVOT Area: 3.14 Diastolic Function MV Pk E: 1.20 MV Pk A: 1.10 E/A: 1.10 E'Medial: 7.62 E/E' Med: 15.70 E' Laterial: 7.83 E/E' Lat: 15.30 Right Ventricle TAPSE (mm): 27.50 TVS' Carlos: 16.00 Tricuspid Valve TR Pk Carlos: 2.80 TR Pk Grad: 31.00 RA Press: 8.00 RVSP: 39.00 Great Vessels Aorta Sinus of Valsalva: 3.10 2.0-3.5 cm Ao Asc: 3.40 2.1-3.4 cm Pulmonary Veins Pulm Vein S/D 1.50 Pulmonary Valve PV Pk Carlos: 0.93 Peak PV Grad: 3.00 Updated in Other Vendor System with Status of Final David Mcqueen MD electronically signed on 03/16/2025 11:24:08 AM with status of Final
--- NOTE | 2025-03-15 14:05 | HM_ITS ---
Conclusion: 1. Patient was monitored for total period of 6 days 2. Baseline was normal sinus rhythm with average heart rate of 70 beats per minute 3. No significant pauses noted 4. Occasional PACs noted with total burden of 0.21% with 8 short runs of SVE, longest lasting 11 beats 5. No patient reported events MTDD
--- OUTSIDE RECORDS SUMMARY | 2025-03-15 14:58 | XMS_ITS | Clinical Summary ---
Author Organization [facility] Address [address] [place] [address] Phone Care Team Providers Care Life Insurance Salesperson Name Role Phone Dallas José DO Primary Care Provider [phone] Allergies Active Allergy Reactions Criticality Noted Date [...] with ulcer of left lower extremity (CODE) ([facility] V24, [facility] V28) 09/26/2024 Chronic venous hypertension (idiopathic) with other complications of right lower extremity 09/26/2024 Non-pressure chronic ulcer o f other part of left lower leg with fat layer exposed ([facility] V24, [facility] V28) 09/26/2024 PAD (peripheral artery disease) ([facility] V24) Type 2 diabetes mellitus wit h other skin ulcer (CODE) ([facility] V24, [facility] V28) 09/26/2024 Surgical History Surgery Date Site/Laterality Comments OTHER SURGICAL HISTORY PROCEDURE: ARTHROSCOPY PROCEDURE NEC; COMMENT: Knee surgery OTHER SURGICAL HISTORY 03/12/09 PROCEDURE: HISTORICAL PANNICULECTOMY LAPAROSCOPIC GASTRIC BANDING PROCEDURE: LAP ADJUSTABLE GASTRIC BAND Medical History Medical History Date Comments Edema 08/15/2005 DX:Edema Morbid obesity ([facility] V24, [facility] V28) 08/15/2005 DX:Morbid obesity ([facility]); COM MENT: lap band planned [...] DVT of lower extremity (deep venous thrombosis) ([facility] V24, [facility] V28) 04/13/2009 DX:DVT of lower extremity (deep venous thrombosis) ([facility]) Diabetes mellitus ([facility] V 24, [facility] V28) COPD (chronic obstructive pu lmonary disease) ([facility] V24, [facility] V28) Family History Medical History Relation Name [...] 79 09/26/2024 8:32 AM EST Temperature 36.9 C (98.4 F) 09/26/2024 8:32 AM EST Respiratory Rate 20 09/26/2024 8:32 AM EST [...] Panel) 06/28/2022 Colorectal Cancer Screening: Colonoscopy 06/28/2022 HIV Screening 06/28/2022 Hepatitis C Screening 06/28/2022 Medicare Annual Wellness Visit 06/28/2022 Social Influencers of Health Screening 06/28/2022 RSV Immunization Adult Patients (1 - Risk 60-74 years 1-dose series) 2023 COVID-19 Vaccine ( season) 2024 08/30/2021, 01/02/2021, 12/02/2020 Depression Screening 07/27/2024 Diabetes: Annual Urine Albumin-Creatinine Ratio (uACR) 09/26/2024 Diabetes: Blood Sugar Control Test (HGBA1C) 09/26/2024 Hypertension/CHF/CAD Annual BMP Blood Test 10/04/2024 Influenza Vaccine (#1) 2025 , 05/05/2022, 06/25/2021, Additional history exists Pneumococcal Vaccine: 50+ Years Completed 06/03/2023, 10/08/2011 HIB Vaccines Aged Out [...] to ulceration/compr omised skin integrity. No Navya Trejo, RN Additional Health Concerns Active Problems Noted Date Diagnosed Date Impaired Tissue 09/26/2024 Education needed on impact of smoking on wound 0 09/26/2024 Education needed related to ulceration/compromised skin integrity. 09/26/2024 Insurance Member Subscriber Plan / Payer (Ef fective 2019-Present) Name:Kwesi, Shruthi Relation to Subscriber:Self Name:Kwesi, Shruthi Payer ID:[id number] Group ID:[id number] Type:Not on file Address: [place] [address] [place] [address] Care Teams Life Insurance Salesperson Relationship Specialty Start Date End Date Dallas José DO [address] [place] [id number] PCP - General Family Medicine 09/26/24
--- OUTSIDE RECORDS SUMMARY | 2025-03-15 14:58 | XMS_ITS | Clinical Summary ---
Author Organization [facility] Address [address] [place] [id number] Phone Care Team Providers Care Wheel Worker Name Role Phone Dallas José DO Primary Care Provider [phone] Allergies Active Allergy Reactions Criticality Noted Date Comments Adhesive 05/08/2023 House Dust Mite 05/08/2023 Other reaction(s): copd exac/sinus congestion Medications acetaminophen (TYLENOL) 325 mg tablet 3 Active albuterol 90 mcg/actuation inhaler 3 Active SYMBICORT 80-4.5 mcg/actuation inhaler 3 Active amiodarone (PACERONE) 200 MG tablet 3 Active cefadroxil (DURICEF) 500 MG capsule TAKE 1 CAPSULE BY MOUTH EVERY 12 HOURS FOR 10 DAYS Active penicillin V potassium (VEETIDS) 250 MG tablet TAKE 1 TABLET BY MOUTH TWICE DAILY CELLULITIS PROPHYLAXIS 3 Active cloNIDine HCL (CATAPRES) 0.1 MG tablet 3 Active cyclobenzaprine (FLEXERIL) 5 MG tablet Take 1 tablet by mouth nightly at bedtime as needed. 3 Active dilTIAZem (DILACOR XR) 240 mg 24 hr capsule 3 Active docusate sodium (COLACE) 100 MG capsule 3 Active DULoxetine (CYMBALTA) 60 MG capsule 3 Active DULoxetine (CYMBALTA) 40 mg capsule Take 1 capsule by mouth nightly at bedtime. Active furosemide (LASIX) 40 MG tablet Take 1 tablet by mouth daily. 3 Active ipratropium (ATROVENT) 21 mcg (0.03 %) nasal spray 3 Active lamoTRIgine (LAMICTAL) 25 MG IMMEDIATE release tablet 3 Active lamoTRIgine (LAMICTAL) 200 MG IMMEDIATE release tablet TAKE 1 TABLET BY MOUTH AT BEDTIME DIRECTED 2 Active loratadine (CLARITIN) 10 mg tablet 3 Active metoprolol succinate (TOPROL-XL) 50 MG 24 hr tablet 3 Active metoprolol tartrate (LOPRESSOR) 25 MG tablet 50 mg. Active nitrofurantoin (MACROBID) 100 MG capsule Active propranoloL (INDERAL) 20 MG immediate release tablet Activ e rivaroxaban (XARELTO) 20 mg Tab TAKE 1 TABLET BY MOUTH DAILY. REPLACES WARFARIN 3 Active rOPINIRole (REQUIP) 0.5 MG tablet 3 Active rosuvastatin (CRESTOR) 10 MG tablet 3 Active Active Problems Problem Noted Date Diagnosed Date Atrial flutter 05/08/2023 Assessment & Plan (05/08/2023 2:34 PM EDT): She has typical atrial flutter. We had a detailed discussion with the patient and in view of high success rate with CTI ablation patient opted to go ahead with atrial flutter ablation. We will schedule atrial flutter ablation. Counseled the patient about the importance of blood thinner. Chronic anticoagulation 05/08/2023 Assessment & Plan (05/08/2023 2:35 PM EDT): Counseled the patient not to miss any doses of blood thinners. Tobacco abuse 05/08/2023 Assessment & Plan (05/08/2023 2:35 PM EDT): Counseled the patient regarding smoking cessation. Social History Tobacco Use Types Packs/Day Years Used Date Smoking Tobacco: Every Day Cigarettes Smokeless Tobacco: Never Education Answer Date Recorded Are you interested in more education? Not on fiordaliza e 03/13/2023 Are you concerned about learning? Not on file 03/13/2023 No 03/13/2023 No 03/13/2023 Digital Access Answer Date Recorded No 03/13/2023 No 03/13/2023 Reliable internet access at home? Not on file 03/13/2023 Device with a working camera? Not on file Comments Unknown Sex and Gender Information Value Date Recorded Sex Assigned at Not on file Legal Sex Female 1:34 PM EDT Gender Identity Not on file Sexual Orientation Not on file Last Filed Vital Signs Vital Sign Reading Time Taken Comments Blood Pressure 140/80 05/08/2023 1:14 PM EDT Pulse 61 05/08/2023 1:14 PM EDT Temperature - - Respiratory Rate - - Oxygen Saturation 99% 05/08/2023 1:14 PM EDT Inhaled Oxygen Concentration - - Weight 108.9 kg (240 lb) 05/08/2023 1:14 PM EDT Height 160 cm (5' 3 ) 05/08/2023 1:14 PM EDT Body Mass Index 42.51 05/08/2023 1:14 PM EDT Plan of Treatment Health Maintenance Due Date Last Done Comments ALT LEVEL (ALANINE AMINOTRANSFERASE) 1963 Adult Td,Tdap Booster 1963 CREATININE LEVEL 1963 LIPID PANEL 1963 TSH LEVEL 1963 DEPRESSION SCREENING 1975 SMOKING Hx and SMOKELESS TOB ACCO SCREENING 12/25/1976 HEPATITIS C SCREENING 12/25/1981 HIV ONE-TIME SCREENING (18-6 5 YEARS) 12/25/1981 PNEUMOCOCCAL VACCINES (50+ y ears) (1 of 2 - PCV) 12/25/1982 PAP SMEAR 12/25/1984 SCREENING FOR DIABETES 12/25/1998 MAMMOGRAM 2003 COLOGUARD 12/25/2008 COLONOSCOPY 12/25/2008 COLORECTAL CANCER SCREENING 12/25/2008 FIT TEST 12/25/2008 FOBT 12/25/2008 SIGMOIDOSCOPY 12/25/2008 VIRTUAL COLONOSCOPY 12/25/2008 ZOSTER VACCINES (1 of 2) 12/25/2013 RSV VACCINE (1 - Risk 60-74 years 1-dose series) 2023 COVID-19 VACCINE ( - 2023-2 5 season) 2024 HEPATITIS A VACCINES Aged Out No long er eligible based on patient's age to complete this topic HIB VACCINES Aged Out No longer eligi ble based on patient's age to complete this topic MENINGOCOCCAL VACCINES (ACWY) Aged Out No longer eligible based on patient's age to complete this topic MENINGOCOCCAL VACCINES (B) Aged Out N o longer eligible based on patient's age to complete this topic Medical Devices Not on file Insurance [facility] MEDICARE REPLACEMENT [facility] MEDICARE REPLACEMENT [facility] MEDICARE REPLACEMENT [facility] MEDICARE REPLACEMENT [facility] MEDICARE REPLACEMENT [facility] MEDICARE REPLACEMENT Care Teams Wheel Worker Relationship Specialty Start Date End Date Dallas José DO [address] [id number] [email or web address] PCP - General Hospitalist 12/01/24 Additional Source Comments The information contained in this document represents components of the legal health record. It is not the complete legal health record.[facility]
== END ==
LOC: HO.CARD 14:02
DX: I48.92 Unspecified atrial flutter (principal)
CPT/HCPCS: 93242; 93306

== ENCOUNTER → 2025-03-15 14:05 | Outpatient (BNV) | payer OTHER, SELFPAY | PROVIDERS: Visit Provider Internal Medicine Cardiovascular Disease | DX: I48.92 Unspecified atrial flutter (principal) | CPT/HCPCS: 93306 ==

== ENCOUNTER 2025-07-21 21:07 | Inpatient (IN) | payer OTHER, SELFPAY ==
--- NOTE | ~2025-07-21 | XR_ITS ---
CLINICAL HISTORY: celluliitis R knee 4 view right knee Comparison: None provided Findings: Right total knee arthroplasty with intact hardware. No acute fracture or dislocation. Knee joint effusion. IMPRESSION: Knee joint effusion with intact right total knee arthroplasty and without acute fracture or dislocation This document has been electronically signed by: Eddie Boyer MD on 07/22/2025 04:21:37
--- NOTE | ~2025-07-21 | XR_ITS ---
CLINICAL HISTORY: sob 1 view chest x-ray Comparison: CR - XR CHEST 2V - 12/01/24 18:56 EDT Findings: Leads from spinal cord stimulator overlie the midthoracic spine. The heart size is magnified. The aorta is calcified. No focal consolidation, pleural effusion, or pneumothorax. Degenerative changes of both shoulders. IMPRESSION: No acute findings. This document has been electronically signed by: Eddie Boyer MD on 07/21/2025 23:04:24
[2025-07-21 21:13] VITALS: BP 182/100; PULSE 110; O2SAT 92
[2025-07-21 21:23] VITALS: BP 113/72; PULSE 140; RESP 16; TEMP 36.7; O2SAT 87; BMI 42.9
--- NOTE | 2025-07-21 21:31 | ECG_ITS ---
Test Reason : ?AFIB Blood Pressure : */* mmHG Vent. Rate : 124 BPM Atrial Rate : * BPM P-R Int : * ms QRS Dur : 86 ms QT Int : 330 ms P-R-T Axes : * 36 42 degrees QTcB Int : 474 ms Atrial fibrillation with rapid ventricular response Low voltage QRS Abnormal ECG When compared with ECG of 02-Dec-2024 04:00, Atrial fibrillation has replaced Sinus rhythm Vent. rate has increased by 67 bpm Nonspecific T wave abnormality, worse in Inferior leads T wave amplitude has decreased in Anterolateral leads Referred By: Generic ED Physician Electronically Signed By: KERON ARTHUR MD
--- NOTE | 2025-07-21 21:38 | ED.GENADULT ---
HPI - General Adult General Chief complaint: Arrhythmia/Palpitations Stated complaint: redness/pain in Rt leg Time Seen by Provider: 07/21/25 21:38 Source: patient Mode of arrival: ambulatory Limitations: no limitations History of Present Illness ED Provider: Dr. Gray HPI narrative: 59-year-old female history of COPD, AFib on Xarelto, bilateral knee replacement, diabetes and hypertension presented hospital today for right leg pain. Patient stated that she developed some redness in the right leg. Has progressively been getting worse. Worried about an infection. Denies any fever. Related Data Home Medications ?Medication ?Instructions ?Recorded ?Confirmed albuterol sulfate 90 mcg/actuation 2 puff inhalation Q6H PRN 11/24/21 12/14/24 aerosol inhaler Respiratory Distress duloxetine 60 mg capsule,delayed 60 mg PO DAILY 11/24/21 12/14/24 release ropinirole 0.5 mg tablet 0.5 mg PO TID 05/01/22 12/14/24 lamotrigine 200 mg tablet 200 mg PO BEDTIME 02/05/23 12/14/24 lamotrigine 25 mg tablet 50 mg PO DAILY 02/05/23 12/14/24 fentanyl 75 mcg/hr transdermal 1 patch topical Q3D 11/27/24 12/14/24 patch fluticasone fur. 100 mcg-umeclid 1 ea inhalation DAILY 11/27/24 12/14/24 62.5 mcg-vilant 25 mcg inhalat.powder (Trelegy Ellipta) gabapentin 100 mg capsule 100 mg PO TID 11/27/24 12/14/24 metformin 500 mg tablet 500 mg PO BID 11/27/24 12/14/24 acetaminophen 325 mg tablet 650 mg PO BID PRN Pain 12/01/24 12/14/24 clonidine HCl 0.1 mg tablet 0.1 mg PO DAILY PRN Anxiety 12/01/24 12/14/24 ipratropium 0.5 mg-albuterol 3 mg 3 ml inhalation Q4H PRN Shortness 12/01/24 12/14/24 (2.5 mg base)/3 mL nebulization Of Breath Or Wheezing soln duloxetine 40 mg capsule,delayed 40 mg PO BEDTIME 12/14/24 12/14/24 release sprinkle Previous Rx's ?Medication ?Instructions ?Recorded loratadine 10 mg tablet 10 mg PO DAILY #90 tabs 01/09/25 rivaroxaban 20 mg tablet (Xarelto) 20 mg PO QPM #90 tabs 01/10/25 diltiazem HCl 120 mg 120 mg PO DAILY #90 caps 05/22/25 capsule,extended release 24 hr Allergies Allergy/AdvReac Type Severity Reaction Status Date / Time adhesive Allergy Rash Verified 07/21/25 21:31 Review of Systems Review of Systems: Pertinent review of systems as mentioned in HPI. All other system otherwise negative. [facility] Past Medical History [facility] Narrative: Medical history as mentioned in HPI Medical History Chronic lung disease Right heart failure Atrial flutter History of cardioversion Leg edema Chronic respiratory failure requiring treatment with nocturnal BPAP by mask Morbid obesity Diabetes HLD (hyperlipidemia) HTN (hypertension) DVT of axillary vein, acute Arthritis Scoliosis Disc disorder of cervical region Disc disorder of lumbar region COPD (chronic obstructive pulmonary disease) Surgical History History of prolapse of bladder Hx of abdominoplasty History of partial hysterectomy Hx of esophagogastroduodenoscopy Hx of gastric bypass Status post knee replacement Previous back surgery Family History Family History Father Stroke Other Diabetes Social History Social History Household Members: Family Household Members Other:: daughter Housing: Apartment Do you presently have visiting nurse or other home services: Yes Unable to assess alcohol history related to: Unable to respond Alcohol intake: never Comment: PT REFUSING ALL SAFTEY AND FALL PRECAUTIONS Patient Tobacco Use Status: Current everyday Tobacco user Tobacco use type: Cigarette Cigarette Packs Per Day: 1.5 Cigarettes Per Day: 30 Years Smoked: 40 +/- Smoked in Last 30 Days: Yes Second Hand Smoke Exposure: No Use of substances other than those prescribed or required for medical reasons: No Advance Directives: Yes Advance Directives on File: Yes Advance Directives Date on File: 11/24/21 Do you have a plan to hurt others: No Plan Nutrition Risks: Difficulty swallowing service: No Physical Exam ED Exam Exam: General: Pleasant, no distress, interacting appropriately Head: Normacephalic, atraumatic ENT: oral mucosa moist, neck supple, no tracheal deviation Cardiovascular: Tachycardic rate, irregular rhythm, no murmurs, rubbing, gallops Respiratory: Bilateral wheezing on exam Gastrointestinal: Soft, non distended, non tender, non guarding Extremities: Right leg cellulitis identified on exam. No sign of knee effusion or septic arthritis of the right knee. Appears to be venous stasis changes as well. Neurological: Awake and alert, no facial droop noted Skin: Warm and dry Psychiatric: Appropriate mood and thoughts Vital Signs: Vital Signs - 24 hr 07/21/25 21:23 07/21/25 22:47 07/21/25 23:33 Temperature 98.0 F 97.9 F Pulse Rate 140 H 123 H 114 H Respiratory Rate 16 20 20 Blood Pressure 113/72 101/64 Pulse Oximetry 87 L 91 L 97 Oxygen Delivery Method Room Air Nasal Cannula Nasal Cannula Oxygen Flow Rate 2 2 07/21/25 23:38 07/22/25 01:45 Temperature 98.0 F Pulse Rate 99 112 H Respiratory Rate 22 H 19 Blood Pressure 101/60 111/69 Pulse Oximetry 95 93 Oxygen Delivery Method Nasal Cannula Nasal Cannula Oxygen Flow Rate 2 2 BMI result Body Mass Index 42.9 Medications Administered Discontinued Medications Generic Name Dose Route Start Last Admin Trade Name Freq PRN Reason Stop Dose Admin Vancomycin HCl 2,000 mg in 500 mls @ 250 mls/hr 07/21/25 21:38 07/22/25 01:12 Vancomycin/Ns IV 07/21/25 23:37 Infused ONCE ONE Infusion Lactated Ringer's 1,000 mls @ 999 mls/hr 07/21/25 21:45 07/21/25 23:30 Lr IV 07/21/25 22:45 Infused .Q1H1M MONSERRAT Infusion Piperacillin Sod/Tazobactam 100 mls @ 200 mls/hr 07/21/25 21:38 07/21/25 22:32 Sod 4.5 gm/ Sodium Chloride IV 07/21/25 22:07 Infused ONCE ONE Infusion Lactated Ringer's 1,000 mls @ 999 mls/hr 07/22/25 01:15 07/22/25 01:16 Lr IV 07/22/25 02:15 999 mls/hr .Q1H1M MONSERRAT Administration Metoprolol Tartrate 5 mg 07/22/25 01:38 07/22/25 02:15 Metoprolol Tartrate 5 Mg/5 Ml Vial IVPUSH 07/22/25 01:39 5 mg ONCE ONE Administration Protocol Medical Decision Making Medical Decision Making [facility] Narrative: 59-year-old female presented hospital today for evaluation of right leg pain. Was found to be in AFib RVR. Rates between 110s and 140s. Signs of right leg cellulitis. Sepsis protocol will be activated. CBC CMP lactic acid blood culture will be obtained. We will cover the patient with vancomycin and Zosyn. She does have history of diabetes. Pending lab work at this time. Likely to be admitted to the hospital. A bolus IV fluid be given to the patient. Low suspicion of septic arthritis of the right knee. She does have bilateral knee replacement in the past. Plan to give patient a did show L IV fluid. No sign of leukocytosis, no sign of elevated lactic acid. Patient does not have any fever. Patient's remains in AFib RVR heart rate in the 110s and 120s at this time. We will plan to give patient a small dose of Lopressor IV to see if this will help with her heart rate. Patient does have cellulitis. This may be the cause and exacerbation of AFib RVR. Patient has been compliant with her diltiazem. Patient will be admitted to the hospital for further management of her AFib RVR and cellulitis. Differential Diagnosis Differential Diagnoses: The differential diagnosis associated with the presentation includes Sepsis, cellulitis, septic arthritis Lab Data [facility] Lab Attestation statement: I reviewed the patient's lab results. 07/21/25 21:44 07/21/25 21:44 Labs: Lab Results 07/21/25 Range/Units 21:44 WBC 7.4 (4.8-10.8) X10*3/uL RBC 4.95 (4.20-5.50) X10*6/uL Hgb 13.1 (12.0-16.0) g/dl Hct 42.2 (37.0-47.0) % MCV 85.3 (80.0-98.0) fL MCH 26.5 L (27.0-33.0) pg MCHC 31.0 (31.0-35.0) g/dl RDW 17.8 H (11.0-16.0) % Plt Count 221 (160-400) X10*3/uL MPV 9.4 (9.4-12.3) fL Immature Gran % (Auto) 0.3 (0.0-0.4) % Neut % (Auto) 63.2 (45-73) % Lymph % (Auto) 25.4 (20-40) % [place] % (Auto) 8.6 (2-11) % Eos % (Auto) 2.0 (0-4) % Baso % (Auto) 0.5 (0-2) % Lymph # (Auto) 1.9 (1.2-4.9) X10*3/uL [place] # (Auto) 0.6 (0.1-1.2) X10*3/uL Eos # (Auto) 0.2 (0.0-0.4) X10*3/uL Baso # (Auto) 0.0 (0.0-0.2) X10*3/uL Abs Immat Gran (auto) 0.02 (0.00-0.03) X10*3/uL Absolute Neuts (auto) 4.7 (2.0-8.3) x10*3/uL Absolute Nucleated RBC 0.000 (0.0-0.012) X10*3/uL Nucleated RBC % (auto) 0.0 (0.0-0.2) /100WBC Hold Purple Top SEE NOTE PT 23.9 H (11.2-13.5) SEC INR 2.0 H (0.9-1.1) Sodium 140 (135-145) mmol/L Potassium 3.4 (3.3-5.1) mmol/L Chloride 104 (96-108) mmol/L Carbon Dioxide 27 (22-29) mmol/L Anion Gap 12 (12-20) BUN 13 (9-16) mg/dL Creatinine 0.73 (0.5-1.4) mg/dL Estim Creat Clear Calc 96.3 Estimated GFR > 60 Random Glucose 116 H (60-115) mg/dL Lactic Acid 1.6 (0.5-2.0) mmol/L Calcium 9.2 (8.4-10.2) mg/dL Magnesium 1.9 (1.6-2.6) mg/dL Total Bilirubin 0.7 (0.0-1.0) mg/dL AST 27 (5-31) U/L ALT 16 (0-31) U/L Alkaline Phosphatase 102 (39-117) U/L Troponin I High Sens 4.7 (<3.5-17.0) ng/L NT-Pro-B Natriuret Pep 1627.1 H (<300) pg/mL Total Protein 7.8 (6.5-8.0) g/dL Albumin 3.9 (3.5-5.0) g/dL Ethyl Alcohol < 10 mg/dL Influenza Type A (PCR) NEGATIVE (Negative) Influenza Type B (PCR) NEGATIVE (Negative) RSV RNA Qual (PCR) NEGATIVE (Negative) SARS-CoV-2 RNA (RT-PCR) NEGATIVE (Negative) Critical Care Time Critical Care Time Critical Care Time: Yes Total Critical Care Time: 36 Attestation: Time is exclusive of separately billable procedures. Time includes: direct patient care, patient reassessment, coordination of patient care, interpretation of data (laboratory data, pulse oximetry, arterial blood gases and chest xrays), review of patient's medical records, medical consultation and documentation of patient care. Procedures excluded from critical care time: central intravenous line placement and electrocardiography. Discharge Plan Discharge Clinical Impression: Cellulitis, Atrial fibrillation with RVR Patient Disposition: Admitted As Inpatient Print Language: French
[2025-07-21 21:52] LABS: MANUAL DIFF FLAG NO
[2025-07-21 21:55] LABS: Hematocrit 42.2 % (37.0-47.0); Hemoglobin 13.1 g/dl (12.0-16.0); Imm Gran Abs Auto 0.02 X10*3/uL (0.00-0.03); Imm Gran Pct Auto 0.3 % (0.0-0.4); Lymphocytes Absolute Auto 1.9 X10*3/uL (1.2-4.9); Mean Corpuscular HGB Conc 31.0 g/dl (31.0-35.0); Mean Corpuscular Hemoglobin 26.5 pg (27.0-33.0); Mean Corpuscular Volume 85.3 fL (80.0-98.0); NRBC Abs Auto 0.000 X10*3/uL (0.0-0.012); NRBC Pct Auto 0.0 /100WBC (0.0-0.2); Platelet Count 221 X10*3/uL (160-400); Red Blood Count 4.95 X10*6/uL (4.20-5.50); White Blood Count 7.4 X10*3/uL (4.8-10.8)
--- OUTSIDE RECORDS SUMMARY | 2025-07-21 22:01 | XMS_ITS | Data Portability ---
Author Organization [employer] [facility], [facility] Address [address] [place] [address] Care Team Providers Care Machinist Bench Name Role Phone HIM CCA OTHER LATOYA DOSHI Primary Care Provider Assessment Encounter Date Assessment Date Assessment LastModified by Organization Details LastModified Time 08/22/2023 08/22/2023 I provided real -time medical direction via phone for this encounter, and was available for additional phone based assistance as needed. I have reviewed and agree with the Assessment and Plan as documented by the Elevator Serviceman. Patient given the opportunity to ask questions. [...] We discussed the need to seek care urgently/emerge ntly in the setting of any new or worsening serious symptoms Not available 08/22/2023 21:31:44 03/22/2025 03/22/2025 I provided real -time medical direction via phone for this encounter and was available for additional phone-based assistance as needed. I have reviewed and agree with the Assessment and Plan as documented by the Elevator Serviceman. Patient given the opportunity to ask questions. Our service contacted for an assessment of: Urinary symptoms As per above, patient with several days of dysuria, frequency. No history of frequent urinary tract infections. Denies fever, chills, abdominal pain, back pain, flank pain. Per sonography technician on the scene, Vital signs are stable and the patient is afebrile. Patient is nontoxic in appearance. UA is positive for leukocytes. Impression: Urinary symptoms and UTI Plan: Keflex 500 mg BID for 5 days. First dose administered by medic Allergies: reviewed We discussed the diagnostic uncertainty of home visits and the risk associated with this. In this case, the patient and I felt this to be an acceptable and reasonable amount of risk given the benefit of avoiding an ED visit. We discussed the need to seek care urgently/emerge ntly in the setting of any new or worsening serious symptoms, particularly fever chills Not available 03/22/2025 09:35:43 04/27/2025 04/27/2025 59yo/f referred for urinary symptoms. Patient is 59yo/f, hx of prior UTIs, states was seen by this program a couple of months ago, was having urinary symptoms at that time, finished course of what appears to be keflex, urine culture not available from that visit. States for past 1-2 weeks has had increased symptoms of dysuria, urinary frequency, some change in odor. Concerned about recurrent UTI. For medic on scene patient is awake, alert, in no distress. A/ox3, GCS 15. Patient is afebrile with normal vital signs. No associated abdominal pain, flank pain, nausea/vomiting , fevers. No chest pain or dyspnea. States otherwise feels in usual state of health. On exam abdomen is soft and nontender, no CVA tenderness. Denies other ROS and rest of exam is unremarkable. Patient underwent urine dip as above which appears consistent with UTI, she is on anticoagulant, may have element of hemorrhagic cystitis, no gross blood in urine today. I believe it's reasonable to start empiric treatment with macrobid, and will send 5 day course today. Patient feels comfortable observing symptoms at home and following up with PCP. I have a low clinical suspicion at this time for an occult emergency medical condition such as ACS, PE, aortic dissection, AAA, pyelonephritis, sepsis. Strict return instructions reviewed. Disposition: We discussed the diagnostic uncertainty of home visits and the risk associated with this. In this case, the patient and I felt this to be an acceptable and reasonable amount of risk given the benefit of avoiding an ED visit. We discussed the need to seek care urgently/emerge ntly in the setting of any new or worsening serious symptoms [email or web address] Not available 04/27/2025 13:58:05 Plan of Treatment Reminders Order Date Submit Date Provider Last Modified By Organization Details Last Modified Time Details Appointments None recorded. Lab urinalysis, dipstick 2024 025 [facility], [address] [place] [address], [id number] 5 14:34:13 culture, urine 2024 025 [facility] (Centralized Electronic Ordering - All Locations), Patient Can Go To The Location Of Their Choice, [id number] 5 22:05:45 urinalysis, dipstick 2024 025 [facility], [address] [place] [address], [id number] 5 12:44:56 rapid flu (A+B) [address], [id number] 3 19:58:40 rapid strep group A, throat [address], [id number] 3 19:58:18 streptococc us group A, culture, throat 2022 023 [facility] (Centralized Electronic Ordering - All Locations), Patient Can Go To The Location Of Their Choice, [id number] 3 07:41:24 rapid strep group A, throat 2022 023 [facility], [address] [place] [address], [id number] 3 19:59:12 Referral None recorded. Procedures None recorded. Surgeries None recorded. Imaging None recorded. Medication Orders Macrobid 100 mg capsule 2024 025 [id number], [address] [place] [address], [id number], 5 05:02:00 Macrobid 100 mg capsule 2024 025 [facility] #[id number], [address] [place] [address], [id number], 5 05:02:00 cephalexin 500 mg tablet 2024 025 [facility] #55017, [address] [place] [address], [id number], 5 05:01:22 cephalexin 500 mg capsule [address] [facility]70429, [address] [place] [address], [id number], 5 09:33:27 ketorolac 30 mg/mL (1 mL) injection solution [address] [facility] #64587, [address] [place] [address], [id number], 4 21:32:07 Patient TargetsNo targets recorded. Patient InstructionsNo instructions recorded. Reason for Referral None Reported. Results Created Date Observation Date Name Description Value Unit Range Abnormal Flag Note LastModifiedBy Organization Detail LastModifiedTime 07/17/20 23 07/17/2023 GROUP A STREP CULT. specimen description THROAT SWAB Not Available [facility] (Centralized Electronic Ordering - All Locations) Patient Can Go To The Location Of Their Choice, [id number] 07/20/2023 07:41:24 07/17/20 23 07/17/2023 GROUP A STREP CULT. special requests NONE Not Available [facility] (Centralized Electronic Ordering - All Locations) Patient Can Go To The Location Of Their Choice, [id number] 07/20/2023 07:41:24 07/17/20 23 07/20/2023 GROUP A STREP CULT. culture NO GROUP A BETA HEMOLY TIC STREPT OCOCCI ISOLAT ED Not Available [facility] (Centralized Electronic Ordering - All Locations) Patient Can Go To The Location Of Their Choice, [id number] 07/20/2023 07:41:24 07/17/20 23 07/20/2023 GROUP A STREP CULT. report status FINAL 2022 Not Available [facility] (Centralized Electronic Ordering - All Locations) Patient Can Go To The Location Of Their Choice, [id number] 07/20/2023 07:41:24 07/17/20 23 07/17/2023 rapid strep group A, throa t Strep negati ve Not Available [facility] ed [address] [place] [address], [id number] 07/17/2023 19:58:58 07/17/20 23 07/17/2023 rapid flu (A+B) Flu negati ve Not Available [facility] ed [address] [place] [address], [id number] 07/17/2023 19:56:02 07/17/20 23 07/17/2023 rapid strep group A, throa t Strep negati ve Not Available [facility] ed [address] [place] [address], [id number] 07/17/2023 19:56:05 04/27/2004/28/2025 URINE CULTU RE, UROLO GY ASHLEY P urine culture, urology workup Final report Not Available [facility] ([facility]) [address] [facility], [place], [address], 04/28/2025 22:05:45 04/27/2004/28/2025 URINE CULTU RE, UROLO GY ASHLEY P result 1 COMMEN T Mixed uroge nital khushbu 10,00 0-25, 000 colon y formi ng units per mL Not Available [facility] ([facility]) [address] [facility], [place], [address], 04/28/2025 22:05:45 Result Notes None recorded. Medical Equipment None Reported. Allergies Allergen ID Allergen Name Allergen Category Reaction Reaction Severity Criticality Documentation Date Start Date Code Code System Note Provider Name and Address Organization Details Recorded Time 3214 adhesive tape environme nt,medica tion rash Not available Not available 03/31/2023 Rubi Mesa MD [address] [facility], [place], [phone], Vtap 17:24:31 Medications Name Sig Start Date Stop Date Status Note LastModified by Organization Details LastModified Time celecoxib 200 mg capsule TAKE 1 CAPSULE BY MOUTH ONCE DAILY START AFTER SURGERY active Not Available Not Available No t Available penicillin V potassium 250 mg tablet TAKE 1 TABLET BY MOUTH TWICE DAILY CELLULITI S PROPHYLAX IS active Not Available Not Available No t Available cyclobenzap rine 10 mg tablet TAKE 1 TABLET BY MOUTH THREE TIMES A DAY NEEDED FOR SPASM active Not Available Not Available No t Available furosemide 40 mg tablet TAKE 1 TABLET BY MOUTH DAILY active Not Available Not Available No t Available metformin 500 mg tablet active Not Available Not Available Not Available fentanyl 50 mcg/hr transdermal patch APPLY 1 PATCH TOPICALLY TO THE SKIN EVERY 72 HOURS active Not Available Not Available No t Available clonidine HCl 0.1 mg tablet active Not Available Not Available Not Available acetaminoph en 325 mg tablet active Not Available Not Available Not Available prednisone 10 mg tablet TAKE 4 TABLETS BY MOUTH EVERY DAY FOR 5 DAYS THEN 3 TABLETS FOR 3 DAYS THEN 2 TABLETS FOR 3 DAYS THEN 1 TABLET FOR 3 DAYS active Not Available Not Available No t Available gabapentin 600 mg tablet active Not Available Not Available Not Available lamotrigine 200 mg tablet TAKE 1 TABLET BY MOUTH AT BEDTIME DIRECTED active Not Available Not Available No t Available nicotine 14 mg/24 hr daily transdermal patch APPLY 1 PATCH TOPICALLY TO THE SKIN DAILY active Not Available Not Available No t Available ipratropium 0.5 mg-albutero l 3 mg (2.5 mg base)/3 mL nebulizatio n soln USE 3 ML VIA NEBULIZER FOUR TIMES DAILY NEEDED FOR WHEEZING OR SHORTNESS OF BREATH active Not Available Not Available No t Available albuterol sulfate 2.5 mg/3 mL (0.083 %) solution for nebulizatio n 3 ml x1 2022 active Not Available Not Available Not Avai lable diltiazem ER (XR/XT) 240 mg capsule,ext ended release 24 hr, controlled active Not Available Not Available N ot Available azithromyci n 250 mg tablet TAKE 1 TABLET BY MOUTH EVERY DAY active Not Available Not Available No t Available aspirin 325 mg tablet Take 1 tablet every day by oral route for 1 day. 2021 active Not Available Not Available Not Avai lable amiodarone 200 mg tablet TAKE 2 TABLETS BY MOUTH TWICE DAILY FOR 10 DAYS THEN TAKE 1 TABLET BY MOUTH EVERY DAY active Not Available Not Available No t Available metoprolol succinate ER 50 mg tablet,exte nded release 24 hr TAKE 1 AND 1/2 TABLETS BY MOUTH DAILY active Not Available Not Available No t Available meloxicam 15 mg tablet TAKE 1 TABLET BY MOUTH EVERY DAY WITH FOOD OR MILK active Not Available Not Available No t Available prednisone 20 mg tablet TAKE 2 TABLETS BY MOUTH DAILY FOR 5 DAYS active Not Available Not Available No t Available metoprolol succinate ER 100 mg tablet,exte nded release 24 hr TAKE 1 TABLET BY MOUTH DAILY active Not Available Not Available No t Available warfarin 2.5 mg tablet active Not Available Not Available Not Available chlorthalid one 25 mg tablet active Not Available Not Available Not Available peg-electro lyte solution 420 gram oral solution active Not Available Not Available Not Available tramadol 50 mg tablet TAKE 1 TABLET BY MOUTH TWICE DAILY NEEDED FOR PAIN active Not Available Not Available No t Available lamotrigine 25 mg tablet TAKE 1 TABLET BY MOUTH FOR 14 DAYS THEN 2 DAILY active Not Available Not Available No t Available Macrobid 100 mg capsule Take 1 capsule every 12 hours by oral route for 5 days. 05/09 completed Not Available Not Available Not Available cefadroxil 500 mg capsule TAKE 1 CAPSULE BY MOUTH EVERY 12 HOURS FOR 10 DAYS active Not Available Not Available No t Available methenamine hippurate 1 gram tablet active Not Available Not Available Not Available hydromorpho ne 2 mg tablet TAKE 1 TABLET BY MOUTH EVERY 4-6 HOURS NEEDED active Not Available Not Available No t Available warfarin 6 mg tablet TAKE 1 TABLET BY MOUTH DAILY AT 6 PM active Not Available Not Available No t Available nicotine (polacrilex ) 4 mg gum CHEW 1 PIECE BY MOUTH EVERY 2 HOURS NEEDED active Not Available Not Available No t Available doxycycline monohydrate 100 mg capsule TAKE 1 CAPSULE BY MOUTH TWICE DAILY active Not Available Not Available No t Available cephalexin 500 mg capsule TAKE 1 CAPSULE BY MOUTH TWICE DAILY FOR 5 DAYS active Not Available Not Available No t Available pantoprazol e 40 mg tablet,hayley yed release TAKE 1 TABLET BY MOUTH EVERY MORNING active Not Available Not Available No t Available ropinirole 0.5 mg tablet active Not Available Not Available Not Available calcipotrie ne 0.005 % topical cream active Not Available Not Available Not Available prednisone 50 mg tablet TAKE 1 TABLET BY MOUTH DAILY active Not Available Not Available No t Available warfarin 5 mg tablet active Not Available Not Available No t Available oxycodone 5 mg capsule TAKE 1 CAPSULE BY MOUTH EVERY 8 HOURS NEEDED FOR PAIN active Not Available Not Available No t Available nicotine 21 mg/24 hr daily transdermal patch APPLY 1 PATCH TRANSDERM ALLY EVERY DAY active Not Available Not Available [...] Not Available Not Available No t Available cephalexin 500 mg tablet Take 1 tablet twice a day by oral route for 5 days. 04/03 completed Not Available Not Available Not Available diltiazem CD 120 mg capsule,ext ended release 24 hr TAKE 1 CAPSULE BY MOUTH DAILY active Not Available Not Available No t Available digoxin 125 mcg (0.125 mg) tablet TAKE 1 TABLET BY MOUTH EVERY 2 DAYS active Not Available Not Available No t Available gabapentin 100 mg capsule TAKE 1 CAPSULE BY MOUTH THREE TIMES DAILY active Not Available Not Available No t Available lorazepam 1 mg tablet TAKE 1 TABLET BY MOUTH ONE HOUR BEFORE PROCEDURE . MAY TAKE ADDITIONA L 1 TABLET 30 MINUTES BEFORE PROCEDURE IF NEEDED active Not Available Not Available No t Available warfarin 1 mg tablet TAKE 1-10 TABLETS BY MOUTH EVERY DAY DIRECTED BY NEOS active Not Available Not Available No t Available fentanyl 25 mcg/hr transdermal patch APPLY 1 PATCH TOPICALLY TO THE SKIN EVERY 72 HOURS FOR 15 DAYS active Not Available Not Available No t Available estradiol 0.01% (0.1 mg/gram) vaginal cream APPLY HALF A GRAM VAGINALLY EVERY THURSDAY AND THURSDAY active Not Available Not Available No t Available albuterol sulfate HFA 90 mcg/actuati on aerosol inhaler active Not Available Not Available Not Available colchicine 0.6 mg tablet active Not Available Not Available Not Available propranolol 20 mg tablet active Not Available Not Available Not Available fentanyl 75 mcg/hr transdermal patch APPLY 1 PATCH TOPICALLY TO THE SKIN EVERY 72 HOURS active Not Available Not Available No t Available diltiazem ER (XR/XT) 180 mg capsule,ext ended release 24 hr, controlled active Not Available Not Available N ot Available ipratropium bromide 21 mcg (0.03 %) nasal spray USE 2 SPRAYS IN EACH NOSTRIL TWICE DAILY active Not Available Not Available No t Available loratadine 10 mg tablet active Not Available Not Available Not Available oxycodone 5 mg tablet TAKE 1 TABLET BY MOUTH EVERY DAY NEEDED FOR PAIN active Not Available Not Available No t Available enoxaparin 30 mg/0.3 mL subcutaneou s syringe INJECT THE CONTENTS OF 1 SYRINGE SUBCUTANE OUSLY TWO TIMES A DAY FOR 7 DAYS. DISCONTIN UE WHEN INR IS GREATER THAN 1.8 active Not Available Not Available No t Available cyclobenzap rine 5 mg tablet TAKE 1 TABLET BY MOUTH AT BEDTIME NEEDED active Not Available Not Available No t Available rosuvastati n 10 mg tablet TAKE 1 TABLET BY MOUTH DAILY active Not Available Not Available No t Available metoprolol tartrate 25 mg tablet active Not Available Not Available No t Available duloxetine 20 mg capsule,del ayed release active Not Available Not Available Not Available duloxetine 60 mg capsule,del ayed release TAKE 1 CAPSULE BY MOUTH EVERY MORNING active Not Available Not Available No t Available fentanyl 12 mcg/hr transdermal patch APPLY 1 PATCH TOPICALLY TO THE SKIN EVERY 72 HOURS FOR 15 DAYS active Not Available Not Available No t Available pregabalin 75 mg capsule TAKE 1 CAPSULE BY MOUTH TWICE DAILY active Not Available Not Available No t Available Symbicort 80 mcg-4.5 mcg/actuati on HFA aerosol inhaler active Not Available Not Available Not Available peg 3350-electr olytes 236 gram-22.74 gram-6.74 gram-5.86 gram solution MIX AND DRINK DIRECTED active Not Available Not Available No t Available FreeStyle Zapata Lite kit CHECK GLUCOSE TWICE DAILY active Not Available Not Available No t Available oxycodone 10 mg tablet TAKE 1 [...] Not Available No t Available [facility] spacer active Not Available Not Available Not Available Trulicity 1.5 mg/0.5 mL subcutaneou s pen injector active Not Available Not Available Not Available Trulicity 0.75 mg/0.5 mL subcutaneou s pen injector active Not Available Not Available Not Available Mitigare 0.6 mg capsule TAKE 1 CAPSULE BY MOUTH DAILY active Not Available Not Available No t Available duloxetine 40 mg capsule,del ayed release TAKE 1 CAPSULE BY MOUTH AT BEDTIME active Not Available Not Available No t Available Spiriva Respimat 1.25 mcg/actuati on solution for inhalation active Not Available Not Available N ot Available BinaxNOW COVID-19 Ag Self Test kit TEST DIRECTED TODAY active Not Available Not Available No t Available Vitals Date Recorded Heart rate Body temperature Respiratory rate Oxygen saturation Systolic blood pressure Provider Name and Address Organization Details Last Updated DateTime 4 73 /min 98.8 [degF] 18 /min 97 % 130 mm[Hg] Not Available [facility] 4 21:21:50 Date Recorded Body height Oxygen saturation Body weight Heart rate Respiratory rate Body temperature Systolic And Diastolic Provider Name and Address Organization Details Last Updated DateTime 5 157.48 cm 97 % 22616.4 g 74 /min 14 /min 98 [degF] 142/81 mm[Hg] Not Available [facility] 5 09:30:37 Date Recorded Body temperature Heart rate Oxygen saturation Body weight Body height Respiratory rate Systolic And Diastolic Provider Name and Address Organization Details Last Updated DateTime 5 97.8 [degF] 66 /min 97 % 308104. 08 g 160.02 cm 16 /min 129/70 mm[Hg] Not Available [facility] [place] 5 13:49:35 Date Recorded Respiratory rate Heart rate Body height Oxygen saturation Body temperature Body weight Systolic And Diastolic Provider Name and Address Organization Details Last Updated DateTime 3 20 /min 65 /min 162.56 cm 97 % 98.1 [degF] 119390. 6 g 128/84 mm[Hg] Not Available [facility] 3 15:25:16 Date Recorded Body weight Body height Oxygen saturation Body temperature Heart rate Respiratory rate Systolic And Diastolic Provider Name and Address Organization Details Last Updated DateTime 3 367683. 08 g 160.02 cm 99 % 98.5 [degF] 81 /min 18 /min 132/85 mm[Hg] Not Available [facility] 3 19:55:06 Social History None recorded. Functional Status None recorded. Mental Status None recorded. Family History Nothing Reported. Medical History No medical history recorded. Gynecological HistoryNo gynecological history recorded. Obstetrics History GPAL:G 0 P 0 0 0 0 Past Encounters Encounter ID Performer Location Encounter Start Date Encounter Closed Date Diagnosis/Indication Diagnosis SNOMED-CT Code Diagnosis ICD10 Code Diagnosis IMO Codes Diagnosis Note [id number] Estella Rodriguez MD [facility] [address] [place] [phone] 12/11/2021 13:57:22 04/01/2022 15:51:42 Angina pectoris 328644882 I20.9 Pt with recent incidental diagnosis of AFlutter on digoxin and metoprolol called for episodes of tachycardi a (not captured on EKG today though likely c/w breakthrou gh AFlutter) and new exertional chest pain (not during episdoes of tachycardi a) c/w angina. Per pt has never undergone stress testing or [facility], has cardiology eval planned for December. EKG today w/ Q waves III and V1, no acute ST-T seg changes however give hx c/f unstable angina needs more urgent risk stratifica tion (HEART score 5 without consider of troponin, so rules in for urgent stress testing regardless of trop level). Pt agrees to ED trasport, expect called to [facility]. Full dose ASA given. I have reviewed and agree with the assessment and plan as documented by the sonography technician. I provided real time medical direction for this encounter and was immediatel y available to provide additional phone based assistance as needed. [id number] Niall Cardoso MD Main - [facility] [address] [place] [phone] 02/27/2023 14:50:04 02/28/2023 11:15:47 Atrial flutter [id number] I48.92 [id number] Lester Villalobos MD Main - [facility] [address] [place] [id number] 03/15/2023 17:29:32 03/16/2023 07:18:40 Paroxysmal atrial flutter [id number] I48.92 As noted, we were called to see this patient regarding concerns of feeling unwell. Evaluation in the field was performed by my sonography technician colleague, as noted above, I provided real-time [...] and the need for complicate d treatment. [id number] Rubi Mesa MD [facility] - [facility] [address] [place] [phone] 03/31/2023 14:02:46 04/01/2023 11:11:05 Dyspnea 402750624 R06.00 copd exacerbati on-wheezin g improved with nebulizer- see note below patient is refusing ER care so I will put her on a short course of prednisone and increase her albuterol to 2 puffs every 4 hours while she is feeling short of breath. I requested CRC reach out to her restorative care technician about getting her follow-up with her PCP [facility] and getting home nebulizer. Chest pain 60186642 R07. 9 Patient declines aspirin due to [...] of ACS is beyond the scope of [facility] and I expressed my concern for [...] need to follow-up with her PCP tomorrow [id number] Clovis Petersen MD Main - [facility] [address] [place] [id number] 06/02/2023 15:25:14 06/02/2023 22:32:25 Low back pain 932601015 M54.50 This 57-year-ol d female called [facility] braxton ochoa of increased back pain. She has a history of chronic back pain but OTC medication s haven't been effective. I ordered Toradol 30 mg IM. She will follow-up with her PCP. The patient agreed with this plan. [id number] EDILSON ROACH MD Main - [facility] [address] [place] [phone] 07/17/2023 19:55:00 07/18/2023 17:23:41 Sore throat [id number] J02.9 Evaluation in the field was performed by my sonography technician colleague, as noted above, I provided real-time [...] CP, fever or any other concerns _ [id number] Ilana Reeves MD Main - [address] [phone] 08/22/2023 21:21:46 08/23/2023 15:30:12 Strain of neck muscle [id number] S16.1XXA [id number] Ilana Reeves MD [facility] [address] [phone] 03/22/2025 09:30:32 03/22/2025 23:05:31 Urinary system finding 250806100 R39.9 [id number] Jesse Haq MD [facility] [address] [phone] 04/27/2025 13:49:32 04/27/2025 15:31:06 Acute urinary tract infection [id number] N39.0 [id number] Health Concerns Section Related Observation LastModified by Organization Detai ls LastModified Time None Recorded Concern Status LastModified by Organization Details LastModified Time None Recorded Advance Directives Directive None Recorded Payers Insurance Date Sequence Insurance Name Policy Number Policy Guillen Covered Member ID Guillen Member ID Guarantor Name 02/27/2023 1 [facility] - DOS PRIOR TO 2022 - DUAL ELIGIBLE (MEDICARE REPLACEMENT/ADV ANTAGE - HMO) Shruthi Orosco [id number] Shruthi Orosco 04/27/2025 1 [facility] - DOS ON OR AFTER 2022 - DUAL ELIGIBLE - GROUP HOME OPTIONS AND ONE CARE (MEDICARE REPLACEMENT/ADV ANTAGE - HMO) Shruthi Orosco [id number] Shruthi Orosco Notes Date Note Type Note Provider Name and Address Organization Details Recorded Time 06/02/2023 text/html ROS as noted in the HPI HPI: 57 yo F, history of back pain. Increased pain after cleaning the house several days ago. ...................... ...................... ...................... ...................... ...................... ...................... ......... CRC Nursing Assessment: Comments: VNA reports member with increased back pain x 2 days. Member with history of chronic back pain. Exacerbated after the cleaning house yesterday. Pain located to upper right back over scapula. Took Tylenol 3am today. Clovis Petersen MD [address] [place] [address],[address] [facility], [place], [address], Vtap 06/02/2023 15:28:28 07/17/2023 text/html ROS as noted in the HPI HPI: 57 yo female with symptoms of severe sore throat, cough, chest and nasal congestion with chest tightness, no sputum production X 2 days, generally felling very sick, COVID - with at home antigen test. Pain 9-10, back and leg pain ...................... ...................... ...................... ...................... ...................... ...................... ......... CRC Nurse Triage Notes (Mian Lewis): Comments: Reviewed -Jeni COLBERT ...................... ...................... ...................... ...................... ...................... ...................... ......... Elevator Serviceman Note From Paradise Parker: Sent to a call for a pt complaining of URI symptoms. JERSON-01 arrives on scene, pt is alert and [...] flu test: neg; Rapid strep test: neg; [facility] consulted and orders strep culture to be sent to [facility]. Pt advised to drink tea with honey, gargle with warm salt water, and give throat a rest by continuing with soup and fluids (avoiding solid foods) for 24 hrs. Red flags discussed. Pt has no further questions. [facility] Lab Orders: rapid flu (A+B): Performed rapid strep group A, throat: Performed streptococcus group A, culture, throat: Performed rapid strep group A, throat: Not Performed Comment: extra order ...................... ...................... ...................... ...................... ...................... ...................... ......... Disposition: Fulfilled EDILSON ROACH MD [address] [place] [address],[address], [place], [address], Vtap 07/17/2023 21:30:25 08/22/2023 text/html CRC Nurse Triage Notes (Mian Lewis): Chief Complaints: Pain PMH: Heart Disease, CHF, COPD/Asthma, Hypertension Allergies: Unknown Comments: Etl Software Engineer verified the member's name//address and phone number - Education provided on the response time and the member was advised to monitor reported s/s and seek emergency treatment if needed. Member reports a hx of neck, upper back and left/right arm pain - Denies any new injuries or trauma - Denies fever - Member pain management. ...................... ...................... ...................... ...................... ...................... ...................... ......... Elevator Serviceman Note From Marimar Mccormack: Community Elevator Serviceman RolandoTorey Mccormack CCA1 dispatched to a [facility] for a 57 yof C/O neck [...] assessed and treated by them. Equal bilateral chicken hanger strength, no arm drift, CMS present and [...] of using w/ anticoagulants. Red flags discussed. ...................... ...................... ...................... ...................... ...................... ...................... ......... Disposition: Fulfilled Ilana Reeves MD [address] [facility],[address], [place], [address], [employer] - ERN 08/22/2023 21:32:30 03/22/2025 text/html HPI: UTI ...................... ...................... ...................... ...................... ...................... ...................... ......... CRC Nurse Triage Notes (Cherri Henderson): Reason For Request: urinary symptoms Patient Reports: Painful urination; Painful urination with or without fever Denies: Unable to void greater than 5 hours Erection that will not go away after 2 hours Fall or trauma that results in urinary incontinence in the setting of pain Fall or injury that results in incontinence in the absence of pain Lower back pain either unilateral or bilateral, unable to void, painful urination -hematuria Frequent and increased urination with flank pain Inability to fully empty bladder Chief Complaints: Urinary Symptoms PMH: Coronary Artery Disease, Congestive Heart Failure, COPD/Asthma, Hypertension, Diabetes Mellitus Type 2 PMH Reviewed at 03/22/2025 08:23 Allergies Reviewed at 03/22/2025 - 08:23 Comments: 59 y.o female complains of Urinary Symptoms patient self referring hx of chronic UTI's was on penicillin prophylactically up to June of last year. Symptoms started about a week ago and progressively got worse over the last few days denies fever or chills denies any abdominal pain or flank pain pain and burning urination urine dark yellow and odoriferous endorses urgency and frequency patient denies any kidney disease and is on Xarelto. requesting insted assessment. I provided information on the mobile health provider response time and advised the patient and/or caregiver to monitor reported signs and symptoms. I discussed the warning signs of when to seek emergency care. Elevator Serviceman Organization Information for Chuy Zhang [employer] Legal Name: [facility] Transportation Address: [address] [place] [address], [place] [address], Museum Attendant: Saeed JANE No.: [id number] Elevator Serviceman POC Test Results from Chuy Zhang Urine Dipstick (09:16:10) Urine leukocytes: +++CHETAN Urine nitrites: -NIT Urine urobilinogen: 0.2URO Urine protein: -PRO Urine pH: 5.0pH Urine blood: +++BLO Urine specific gravity: 1.005SG Urine ketones: -KET Urine bilirubin: -KENZIE Urine glucose: -GLU ...................... ...................... ...................... ...................... ...................... ...................... ......... Elevator Serviceman Note From Chuy Zhang: Patient alert and oriented seated on couch. Patient complains of increased frequency of urination, burning pain, painful increase pressure of urination times seven days, increased last night. Patient denies fever, chills, nausea, vomiting, change of BMs and denies CVA tenderness. Patient denies abdominal pain, chest pain, difficulty breathing or any other. Patient reports last UTI was years ago. Patient pink warm dry secondary exam unremarkable negative increased work of breathing positive full sentences extremities unremarkable. No edema noted. [facility] orders administered without complication using five rights. Red flags patient education discussed. Patient demonstrates understanding of care and plan. C Lab Orders: urinalysis, dipstick: Performed [facility] Medication Orders: cephalexin 500 mg capsule: Performed ...................... ...................... ...................... ...................... ...................... ...................... ......... [facility] Consulted: Ilana Reeves ...................... ...................... ...................... ...................... ...................... ...................... ......... Disposition: Fulfilled Ilana Reeves MD [address] [place] [address],[address], [place], [address], Vtap 03/22/2025 10:03:21 04/27/2025 text/html ROS as noted in the [facility] CRC Nurse Triage Notes (Cherri Henderson): Reason For Request: Patient has a UTI. Patient Reports: Painful urination; Painful urination with or without fever; Inability to fully empty bladder Denies: Unable to void greater than 5 hours Erection that will not go away after 2 hours Fall or trauma that results in urinary incontinence in the setting of pain Fall or injury that results in incontinence in the absence of pain Lower back pain either unilateral or bilateral, unable to void, painful urination -hematuria Frequent and increased urination with flank pain Chief Complaints: Urinary Symptoms PMH: Coronary Artery Disease, Congestive Heart Failure, COPD/Asthma, Hypertension, Diabetes Mellitus Type 2 PMH Reviewed at 04/27/2025 - 10:32 Allergies Reviewed at 04/27/2025:32 Comments: 59 y.o female complains of Urinary Symptoms Patients reports urinary symptoms started a few days ago. denies any fever or chills, complaining of painful urination. endorses frequency, urgency and some incontinent and foul odor to urine denies any abdominal or flank pain. denies any nausea, vomiting, or diarrhea urine is dark in color and no visible blood, wears briefs. denies any kidney issues on xarelto hx of blood clots. requesting insted visit. I provided information on the mobile health provider response time and advised the patient and/or caregiver to monitor reported signs and symptoms. I discussed the warning signs of when to seek emergency care. Elevator Serviceman Organization Information for Jarad Cook Business Legal Name: [facility] Address: [address] [place] [address], [place] [address], Museum Attendant: Saeed Stearns MD [facility] No.: [id number] Elevator Serviceman POC Test Results from Jarad Cook Urine Dipstick (13:42:14) Urine leukocytes: ++CHETAN Urine nitrites: -NIT Urine urobilinogen: -URO Urine protein: ++PRO Urine pH: 5.0pH Urine blood: +++BLO Urine specific gravity: 1.030SG Urine ketones: -KET Urine bilirubin: -KENZIE Urine glucose: -GLU ...................... ...................... ...................... ...................... ...................... ...................... ......... Elevator Serviceman Note From Jarad Cook: instED visit for female patient with complaint of suspected UTI. Patient presents at home noting 2.5 weeks of dysuria with some increased incontinence. Patient was reportedly seen by our service about a week and a half ago and given a course of Keflex, which patient reports never fully cleared infection. Patient presents at home in no obvious distress. Vital signs taken as listed. No fever noted. Patient was able to provide urine specimen with dipstick analysis suggestive of UTI. Dipstick results uploaded to [facility]. Urine culture obtained from specimen. Consulted with [facility] Dr. Haq who ordered send out urine culture to [facility]. Patient started on course of macro bid with first dose of 100 mg given on scene. Reviewed red flags with patient. Patient education provided. [facility] Lab Orders: urinalysis, dipstick: Performed culture, urine: Performed [facility] Medication Orders: Macrobid 100 mg capsule: Performed ...................... ...................... ...................... ...................... ...................... ...................... ......... [facility] Consulted: Jesse Haq ...................... ...................... ...................... ...................... ...................... ...................... ......... Disposition: Fulfilled Jesse Haq MD [address] [facility],[address], [place], [address], Vtap 04/27/2025 14:33:47 OBGyn Episode No OBEpisode recorded.
--- OUTSIDE RECORDS SUMMARY | 2025-07-21 22:01 | XMS_ITS | Continuity of Care Document ---
Author Organization [facility], [facility] Address [address] [place] [address] Care Team Providers Care Pole Incisor Operator Name Role Phone HIM CCA OTHER LATOYA DOSHI Primary Care Provider Assessment Encounter Date Assessment Date Assessment LastModified by Organization Details LastModified Time 04/27/2025 04/27/2025 59yo/f referred for urinary symptoms. [...] of any new or worsening serious symptoms [email or web address] Not available 04/27/2025 13:58:05 Plan of Treatment Reminders Order Date Submit Date Provider Last Modified By Organization Details Last Modified Time Details Appointments None recorded. Lab urinalysis , dipstick 2024 [facility], [address] [place] [address], [place], [address] 14:34:13 culture, urine 2024 [place] [facility] (Centralized Electronic Ordering - All Locations), Patient Can Go To The Location Of Their Choice, [id number] 22:05:45 Referral None recorded. Procedures None recorded. Surgeries None recorded. Imaging None recorded. Medication Orders Macrobid 100 mg capsule 2024 [place] [id number], [address] [place] [address], [phone], 05:02:00 Macrobid 100 mg capsule 2024 [place] [id number], [address] [place] [address], [phone], 05:02:00 Patient TargetsNo targets recorded. Patient InstructionsNo instructions recorded. Reason for Referral None Reported. Results Created Date Observation Date Name Description Value Unit Range Abnormal Flag Note LastModifiedBy Organization Detail LastModifiedTime 04/27/2004/28/2025 URINE CULTU RE, UROLO GY ASHLEY P urine culture, urology workup Final report Not Available [facility] ([facility]) [address] [facility], [place], [address], 04/28/2025 22:05:45 04/27/2004/28/2025 URINE CULTU RE, UROLO GY ASHLEY P result 1 COMMEN T Mixed uroge nital khushbu 10,00 0-25, 000 colon y formi ng units per mL Not Available [facility] ([facility]) [address] [facility], [place], [address], 04/28/2025 22:05:45 Result Notes None recorded. Medical Equipment None Reported. Allergies Allergen ID Allergen Name Allergen Category Reaction Reaction Severity Criticality Documentation Date Start Date Code Code System Note Provider Name and Address Organization Details Recorded Time 3214 adhesive tape environme nt,medica tion rash Not available Not available 03/31/2023 Rubi Mesa MD [address] [facility],[address], [place], [address], [employer] 17:24:31 Medications Name Sig Start Date Stop [...] Available Not Available No t Available FreeStyle [place] Lite kit CHECK GLUCOSE TWICE DAILY active [...] Not Available No t Available Monica Andre [facility] spacer active Not Available Not Available [...] Available No t Available Vitals Date Recorded Body temperature Heart rate Oxygen saturation Body weight Body height Respiratory rate Systolic And Diastolic Provider Name and Address Organization Details Last Updated DateTime 97.8 [degF] 66 /min 97 % 659014. 08 g 160.02 cm 16 /min 129/70 mm[Hg] Not Available [facility] - production 13:49:35 Social History None recorded. Functional Status None recorded. Mental Status None recorded. Family History Nothing Reported. Medical History No medical history recorded. Gynecological HistoryNo gynecological history recorded. Obstetrics History GPAL:G 0 P 0 0 0 0 Past Encounters Encounter ID Performer Location Encounter Start Date Encounter Closed Date Diagnosis/Indication Diagnosis SNOMED-CT Code Diagnosis ICD10 Code Diagnosis IMO Codes Diagnosis Note [id number] Jesse Haq MD Main-inst ED Medical [facility] [address] [place] [address] 04/27/2025 13:49:32 04/27/2025 15:31:06 Acute urinary tract infection 028824059 N39.0 230782 Health Concerns Section Related Observation LastModified by Organization Detai ls LastModified Time None Recorded Concern Status LastModified by Organization Details LastModified Time None Recorded Payers Encounter Date Sequence Insurance Name Policy Number Policy Guillen Covered Member ID Guillen Member ID Guarantor Name 04/27/2025 1 [facility] - DOS ON OR AFTER 2022 - DUAL ELIGIBLE - ASSISTED OPTIONS AND ONE CARE (MEDICARE REPLACEMENT/ADV ANTAGE - HMO) Shruthi Kwesi [id number] Shruthi Orosco Notes Date Note Type Note Provider Name and Address Organization Details Recorded Time 04/27/2025 text/html ROS as noted in the [facility] CRC Nurse Triage Notes (Cherri Henderson): [...] Type 2 PMH Reviewed at 04/27/2025 - :32 Allergies Reviewed at 04/27/2025 - 10:32 Comments: 59 y.o female complains of Urinary [...] signs of when to seek emergency care. Friction Saw Operator Organization Information for Jarad Cook Business Legal Name: [facility] Address: [address] [place] [address], [place] [address], Screenplay Writer: Saeed Stearns MD CLIA No.: [id number] Friction Saw Operator POC Test Results from Jarad Cook Urine Dipstick (13:42:14) Urine leukocytes: ++CHETAN Urine nitrites: -NIT Urine urobilinogen: -URO Urine protein: ++PRO Urine pH: 5.0pH Urine blood: +++BLO Urine specific gravity: 1.030SG Urine ketones: -KET Urine bilirubin: -KENZIE Urine glucose: -GLU .................... .................... .................... .................... .................... .................... .................... . Friction Saw Operator Note From Jarad Cook: instED visit for [...] suggestive of UTI. Dipstick results uploaded to [facility]. Urine culture obtained from specimen. Consulted with [facility] Dr. Haq who ordered send out urine culture to [facility]. Patient started on course of macro bid with first dose of 100 mg given on scene. Reviewed red flags with patient. Patient education provided. [facility] Lab Orders: urinalysis, dipstick: Performed culture, urine: Performed [facility] Medication Orders: Macrobid 100 mg capsule: Performed .................... .................... .................... .................... .................... .................... .................... . [facility] Consulted: Jesse Haq .................... .................... .................... .................... .................... .................... .................... . Disposition: Fulfilled Jesse Haq MD [address] [facility],[address] [facility], [place], [address], [employer] [place] 04/27/2025 14:33:47 OBGyn Episode No OBEpisode recorded.
--- OUTSIDE RECORDS SUMMARY | 2025-07-21 22:01 | XMS_ITS | Clinical Summary ---
Author Organization [facility] Address [address] [place] [address] Phone Care Team Providers Care Cardiology Specialist Name Role Phone Dallas José DO Primary Care Provider [phone] Allergies Active Allergy Reactions Criticality Noted Date [...] FOBT 12/25/2008 SIGMOIDOSCOPY 12/25/2008 VIRTUAL COLONOSCOPY 12/25/2008 RSV VACCINE (1 - Risk 50-74 years 1-dose series) 12/25/2013 ZOSTER VACCINES (1 of 2) 12/25/2013 INFLUENZA VACCINE (#1) 2025 COVID-19 VACCINE ( - 2024-2 6 season) 2025 HEPATITIS A VACCINES Aged Out No long [...] Devices Not on file Insurance [facility] MEDICARE REPLACEMENT [facility] MEDICARE [facility]PLACEMENT [facility] MEDICARE [facility]PLACEMENT [facility] MEDICARE REPLACEMENT [facility] MEDICARE REPLACEMENT [facility] MEDICARE REPLACEMENT Care Teams Cardiology Specialist Relationship Specialty Start Date End Date Dallas José DO [address] [place] [address] [email or web address] PCP - General Hospitalist 12/01/24 Additional Source Comments The information contained in this document represents components of the legal health record. It is not the complete legal health record.[facility]
--- OUTSIDE RECORDS SUMMARY | 2025-07-21 22:01 | XMS_ITS | Data Portability ---
Author Organization [facility], [employer] Address [address] [place] [phone] Care Team Providers Care Black Top Paver Operator Name Role Phone SHERRY GUEVARA Patient Clerical Assistant Unavailable Assessment Encounter Date Assessment Date Assessment LastModified by Organization Details LastModified Time 08/03/2024 08/03/2024 The following ti me was spent on todays E/M encounter, including preparing for the visit, reviewing results, seeing the patient, and documentation on the date of service of the encounter: 40 73493 15-29 minutes 03884 30-44 minutes 70973 45-59 minutes 13107 60-74 minutes 38383 10-19 minutes 65938 20-29 minutes 63655 30-39 minutes 00400 40-54 minutes Not available 08/05/2024 12:35:02 09/13/2024 09/13/2024 The following ti me was spent on todays E/M encounter, including preparing for the visit, reviewing results, seeing the patient, and documentation on the date of service of the encounter: 45 52190 15-29 minutes 93601 30-44 minutes 92067 45-59 minutes 84992 60-74 minutes 94453 10-19 minutes 20321 20-29 minutes 58709 30-39 minutes 11199 40-54 minutes [email or web address] Not available 09/13/2024 13:04:58 12/09/2024 12/09/2024 Patient discharg e date: 11/28/2024 Patient or caregiver first interactive contact date:(2 business days post D/C); 11/28/2024 Date of 7 or 14 day face to face visit date:12/09/2024 MDM to support level of visit (see rules for transition of care MDM requirements): moderate [email or web address] Not available 12/12/2024 16:26:20 04/04/2025 04/04/2025 Assessment - Memory loss, workup for possible mini stroke (MRI and blood work for B12 and related causes ordered) - Neuropathy in left foot and toes, attributed in part to back pathology - Hand tremor and impaired hand closure, chronic - Heart failure with recent episode of tachycardia and hypotension during hospitalization per patient, MR unavailable and requested - COPD, currently low risk per reel fed printer per pt, MR unavailable Plan - Order laboratory studies to assess memory function, including vitamin B12 levels and other relevant tests. - Order brain MRI to evaluate for possible cerebrovascular events such as a mini stroke. - Recommend engaging in activities outside the home to increase social and physical activity, including considering programs at the local [facility]. [email or web address] Not available 04/06/2025 16:38:19 07/04/2025 07/04/2025 The following ti me was spent on todays E/M encounter, including preparing for the visit, reviewing results, seeing the patient, and documentation on the date of service of the encounter: 45 13544 15-29 minutes 94378 30-44 minutes 66483 45-59 minutes 96126 60-74 minutes 63078 10-19 minutes 28463 20-29 minutes 57408 30-39 minutes 23619 40-54 minutes [email or web address] Not available 07/04/2025 17:16:43 Plan of Treatment Reminders Order Date Submit Date Provider Last Modified By Organization Details Last Modified Time Details Appointments FOLL OW UP 20 2025 10:10A M GIOVANNA ROSAS Not available Not available Not available Lab judith ko n and reina steele 2024 025 ANGELIC [facility] (Centralized Electronic Ordering - All Locations), Patient Can Go To The Location Of Their Choice, [id number] 04/27/2025 16:06:16 karen pride, dips tick 2024 025 [facility], [address] [place] [address], [address], [place], [address], 04/06/2025 15:16:00 unli sted lab - CMP1 2+1A C-30 4975 -C 2024 025 ANGELIC [facility] (Centralized Electronic Ordering - All Locations), Patient Can Go To The Location Of Their Choice, 04/27/2025 16:06:14 HbA1 c (hem oglo bin A1c) , bloo d 2024 025 ANGELIC [facility] (Centralized Electronic Ordering - All Locations), Patient Can Go To The Location Of Their Choice, 10/22/2024 12:05:40 CMP, seru m or plas ma 2024 025 ANGELIC [facility] (Centralized Electronic Ordering - All Locations), Patient Can Go To The Location Of Their Choice, 10/22/2024 12:05:39 micr oalb umin /cre atin ine, mass rati o, urin e 2024 025 ANGELIC [facility] (Centralized Electronic Ordering - All Locations), Patient Can Go To The Location Of Their Choice, 10/22/2024 12:05:39 HbA1 c (hem oglo bin A1c) , bloo d 2024 025 ANGELIC [facility] (Centralized Electronic Ordering - All Locations), Patient Can Go To The Location Of Their Choice, 04/27/2025 16:06:16 CMP, seru m or plas ma 2024 025 ANGELIC [facility] (Centralized Electronic Ordering - All Locations), Patient Can Go To The Location Of Their Choice, 04/27/2025 16:06:14 micr oalb umin /cre atin ine, mass rati o, urin e 2024 025 ANGELIC [facility] (Centralized Electronic Ordering - All Locations), Patient Can Go To The Location Of Their Choice, 04/27/2025 16:06:15 Referral neur olog ist refe rral 2024 025 [facility], [address], [place], [address], 07/06/2025 09:40:[address] refe rral 2024 025 [email or web address] [facility], [address], [place], [address], 07/06/2025 09:45:23 woun d care refe rral - urge nt for mult iple lowe r extr emit y veno us jaimie is ulce rs [address] [facility] [address] [facility], [address], [place], [address], 09/21/2024 08:45:20 vasc ular surg triny refe rral - Veno us jaimie is ulce rs, STUART' s orde red [email or web address] V[facility] Scheduling Dept, [address] [facility], [facility] [address], [place], [address], 09/14/2024 11:17:52 occu elodia onal ther apis t refe rral - cerv ical disc dise ase left hand weak ness 2024 025 [email or web address], [address], [place], [address], 08/17/2024 15:42:41 Procedures None mark rded . Surgeries None mark rded . Imaging MAMM O, scre enin g, digi fam, bila gabriel l 2024 025 [email or web address] [facility] (Mammo), [address] [place], [address], 07/06/2025 09:32:44 MRI, brai n, w/o cont rast 2024 025 [facility] [address], [place], [address], 05/18/2025 14:06:48 ankl e brac hial inde x, comp lete 2024 025 [email or web address] [facility], [address] [place], [address], 09/15/2024 11:00:31 Medication Orders shireen tim 21 mg/2 4 hr ansley y bland sder mal pat h 2024 025 [id number], [address] [place], [place], [id number], 07/04/2025 11:49:06 fent anyl 75 mcg/ hr bland sder mal pat h 2024 025 [id number], [address], [place], [id number], 08/03/2024 10:43:21 Patient TargetsNo targets recorded. Patient InstructionsNo instructions recorded. Reason for Referral Occupational Therapist Refer ral for Chronic back pain cervical disc disease left hand weakness Referring Physician: Viky Perez, Internal Medicine, Encounter Date: 08/03/2024 urgent for multiple lower ex tremity venous stasis ulcers Referring Physician: Viky Perez Internal Medicine, Encounter Date: 09/13/2024 Vascular Surgeon Referral fo r Peripheral vascular disease Venous stasis ulcers, STUART's ordered Referring Physician: Viky Perez Internal Medicine, Encounter Date: 09/13/2024 [employer] Referral for Screening for malignant neoplasm of colon Referring Physician: Viky Perez Internal Medicine, Encounter Date: 07/04/2025 Neurologist Referral for Keenan mor Referring Physician: Viky Perez Internal Medicine, Encounter Date: 07/04/2025 Results Created Date Observation Date Name Description Value Unit Range Abnormal Flag Note LastModifiedBy Organization Detail LastModifiedTime 10/21/1910/20/2024 COMP. METAB OLIC PANEL (14) glucose 93 mg/dL 70-99 normal Not Available [facility] ([facility]) [address] [facility], [place], [address], 10/22/2024 12:05:39 10/21/19 25 10/20/2024 COMP. METAB OLIC PANEL (14) BUN 12 mg/dL 8-27 normal Not Available [facility] ([facility]) [address] [facility] [place], [address], 10/22/2024 12:05:39 10/21/19 25 10/20/2024 COMP. METAB OLIC PANEL (14) creatinine 0.66 mg/dL 0.57-1 .00 normal Not Available [facility] ([facility]) [address] [facility] [place], [address], 10/22/2024 12:05:39 10/21/19 25 10/20/2024 COMP. METAB OLIC PANEL (14) eGFR 100 mL/mi n/1.7 3 >59 normal Not Available [facility] ([facility]) [address] [facility] [place], [address], 10/22/2024 12:05:39 10/21/19 25 10/20/2024 COMP. METAB OLIC PANEL (14) BUN/creatini ne ratio 18 12-28 normal Not Available [facility] ([facility]) [address] [facility] [place], [address], 10/22/2024 12:05:39 10/21/19 25 10/20/2024 COMP. METAB OLIC PANEL (14) sodium 138 mmol/ L 134-14 4 normal Not Available [facility] ([facility]) [address] [facility] [place], [address], 10/22/2024 12:05:39 10/21/19 25 10/20/2024 COMP. METAB OLIC PANEL (14) potassium 4.9 mmol/ L 3.5-5. 2 normal Not Available [facility] ([facility]) [address] [facility] [place], [address], 10/22/2024 12:05:39 10/21/19 25 10/20/2024 COMP. METAB OLIC PANEL (14) chloride 100 mmol/ L 96-106 normal Not Available [facility] ([facility]) [address] [place], [address], 10/22/2024 12:05:39 10/21/19 25 10/20/2024 COMP. METAB OLIC PANEL (14) carbon dioxide, total 24 mmol/ L 20-29 normal Not Available [facility] ([facility]) [address] [place], [address], 10/22/2024 12:05:39 10/21/19 25 10/20/2024 COMP. METAB OLIC PANEL (14) calcium 9.4 mg/dL 8.7-10 .3 normal Not Available [facility] ([facility]) [address] [place], [address], 10/22/2024 12:05:39 10/21/19 25 10/20/2024 COMP. METAB OLIC PANEL (14) protein, total 6.9 g/dL 6.0-8. 5 normal Not Available [facility] ([facility]) [address] [place], [address], 10/22/2024 12:05:39 10/21/19 25 10/20/2024 COMP. METAB OLIC PANEL (14) albumin 3.9 g/dL 3.8-4. 9 normal Not Available [facility] ([facility]) [address] [place], [address], 10/22/2024 12:05:39 10/21/19 25 10/20/2024 COMP. METAB OLIC PANEL (14) globulin, total 3.0 g/dL 1.5-4. 5 Not Available [facility] ([facility]) [address] [place], [address], 10/22/2024 12:05:39 10/21/19 25 10/20/2024 COMP. METAB OLIC PANEL (14) bilirubin, total 0.3 mg/dL 0.0-1. 2 normal Not Available [facility] ([facility]) [address] [place], [address], 10/22/2024 12:05:39 10/21/19 25 10/20/2024 COMP. METAB OLIC PANEL (14) alkaline phosphatase 119 IU/L 44-121 normal Not Available [facility]) [address] [facility], [place], [address], 10/22/2024 12:05:39 10/21/19 25 10/20/2024 COMP. METAB OLIC PANEL (14) AST (SGOT) 24 IU/L 0-40 normal Not Available [facility] ([facility]) [address] [place], [address], 10/22/2024 12:05:39 10/21/19 25 10/20/2024 COMP. METAB OLIC PANEL (14) ALT (SGPT) 21 IU/L 0-32 normal Not Available [facility] ([facility]) [address] [place], [address], 10/22/2024 12:05:39 10/21/19 25 10/22/2024 ALBUM IN/CR EAT RATIO , RANDO M UR creatinine, urine 175.8 mg/dL not estab. normal Not Available [facility] ([facility]) [address] [place], [address], 10/22/2024 12:05:39 10/21/19 25 10/22/2024 ALBUM IN/CR EAT RATIO , RANDO M UR albumin, urine 22.1 ug/mL not estab. Not Available [facility] ([facility]) [address] [place], [address], 10/22/2024 12:05:39 10/21/19 25 10/22/2024 ALBUM IN/CR EAT RATIO , RANDO M UR alb/creat ratio 13 mg/g_ creat 0-29 Alicia l: 0 - 29 Moder ately incre ased: 30 - 300 Sever johanna incre ased: >300 Not Available [facility] ([facility]) [address] [facility], [place], [address], 10/22/2024 12:05:39 10/21/19 25 10/20/2024 HEMOG LOBIN A1C hemoglobin A1C 7.4 % 4.8-5. 6 above high normal Predi abete s: 5.7 - 6.4 Diabe kavita: >6.4 Glyce ramona contr ol for adult s with diabe kavita: <7.0 Not Available [facility] ([facility]) [address] [facility], [place], [address], 10/22/2024 12:05:40 04/06/20 25 04/06/2025 urina lysis , dipst ick Leukocytes negati ve Not Available [facility] [address], [place], [address], 04/04/2025 13:50:39 04/06/20 25 04/06/2025 urina lysis , dipst ick Nitrite negati ve Not Available [facility] [address] [address], [place], [address], 04/04/2025 13:50:39 04/06/20 25 04/06/2025 urina lysis , dipst ick Blood negati ve Not Available [facility] [address], [place], [address], 04/04/2025 13:50:39 04/06/20 25 04/06/2025 urina lysis , dipst ick Protein negati ve Not Available [facility] [address], [place], [address], 04/04/2025 13:50:39 04/06/20 25 04/06/2025 urina lysis , dipst ick Urobilinogen negati ve Not Available [facility] [address], [place], [address], 04/04/2025 13:50:39 04/06/20 25 04/06/2025 urina lysis , dipst ick Ketone negati ve Not Available [facility] [address] [place] [address] [address], [place], [address], 04/04/2025 13:50:39 04/06/20 25 04/06/2025 urina lysis , dipst ick Bilirubin negati ve Not Available [facility] [address] [place] [address] [address], [place], [address], 04/04/2025 13:50:39 04/06/20 25 04/06/2025 urina lysis , dipst ick Glucose negati ve Not Available [facility] [address] [place] [address] [address], [place], [address], 04/04/2025 13:50:39 04/26/20 25 04/26/2025 CMP12 +1AC sodium 141 mmol/ L 134-14 4 normal Not Available [facility] ([facility]) [address] [place], [address], 04/27/2025 16:06:14 04/26/20 25 04/26/2025 CMP12 +1AC potassium 4.7 mmol/ L 3.5-5. 2 normal Not Available [facility] ([facility]) [address] [place], [address], 04/27/2025 16:06:14 04/26/20 25 04/26/2025 CMP12 +1AC chloride 102 mmol/ L 96-106 normal Not Available [facility] ([facility]) [address] [place], [address], 04/27/2025 16:06:14 04/26/20 25 04/27/2025 CMP12 +1AC glucose 100 mg/dL 70-99 above high normal Not Available [facility] ([facility]) [address] [facility] [place], [address], 04/27/2025 16:06:14 04/26/20 25 04/27/2025 CMP12 +1AC uric acid 5.5 mg/dL 3.0-7. 2 normal Thera peuti c targe t for gout patie nts: <6.0 Not Available [facility] ([facility]) [address] [facility], [place], [address], 04/27/2025 16:06:14 04/26/20 25 04/27/2025 CMP12 +1AC BUN 8 mg/dL 8-27 normal Not Available [facility] ([facility]) [address] [facility], [place], [address], 04/27/2025 16:06:14 04/26/20 25 04/27/2025 CMP12 +1AC creatinine 0.69 mg/dL 0.57-1 .00 normal Not Available [facility] ([facility]) [address] [facility], [place], [address], 04/27/2025 16:06:14 04/26/2004/27/2025 CMP12 +1AC eGFR 99 mL/mi n/1.7 3 >59 normal Not Available [facility] ([facility]) [address] [facility], [place], [address], 04/27/2025 16:06:14 04/26/2004/27/2025 CMP12 +1AC BUN/creatini ne ratio 12 12-28 normal Not Available [facility] ([facility]) [address] [facility], [place], [address], 04/27/2025 16:06:14 04/26/20 25 04/27/2025 CMP12 +1AC calcium 9.4 mg/dL 8.7-10 .3 normal Not Available [facility] ([facility]) [address] [place], [address], 04/27/2025 16:06:14 04/26/20 25 04/27/2025 CMP12 +1AC protein, total 7.0 g/dL 6.0-8. 5 normal Not Available [facility] ([facility]) [address] [facility] [place], [address], 04/27/2025 16:06:14 04/26/20 25 04/27/2025 CMP12 +1AC albumin 4.0 g/dL 3.9-4. 9 normal Not Available [facility] ([facility]) [address] [facility] [place], [address], 04/27/2025 16:06:14 04/26/2004/27/2025 CMP12 +1AC globulin, total 3.0 g/dL 1.5-4. 5 Not Available [facility] ([facility]) [address] [facility] [place], [address], 04/27/2025 16:06:14 04/26/20 25 04/27/2025 CMP12 +1AC bilirubin, total 0.5 mg/dL 0.0-1. 2 normal Not Available [facility] ([facility]) [address] [facility] [place], [address], 04/27/2025 16:06:14 04/26/20 25 04/27/2025 CMP12 +1AC alkaline phosphatase 108 IU/L 49-135 normal Not Available [facility]) [address] [facility] [place], [address], 04/27/2025 16:06:14 04/26/20 25 04/27/2025 CMP12 +1AC AST (SGOT) 18 IU/L 0-40 normal Not Available [facility] ([facility]) [address] [facility] [place], [address], 04/27/2025 16:06:14 04/26/20 25 04/27/2025 COMP. METAB OLIC PANEL (14) carbon dioxide, total 22 mmol/ L 20-29 normal Not Available [facility] ([facility]) [address] [facility], [place], [address], 04/27/2025 16:06:14 04/26/20 25 04/27/2025 COMP. METAB OLIC PANEL (14) ALT (SGPT) 12 IU/L 0-32 normal Not Available [facility] ([facility]) [address] [facility], [place], [address], 04/27/2025 16:06:14 04/26/20 25 04/27/2025 ALBUM IN/CR EAT RATIO , RANDO M UR creatinine, urine 169.1 mg/dL not estab. normal Not Available [facility] ([facility]) [address] [facility], [place], [address], 04/27/2025 16:06:15 04/26/20 25 04/27/2025 ALBUM IN/CR EAT RATIO , RANDO M UR albumin, urine 35.0 ug/mL not estab. Not Available [facility] ([facility]) [address] [facility], [place], [address], 04/27/2025 16:06:15 04/26/20 25 04/27/2025 ALBUM IN/CR EAT RATIO , RANDO M UR alb/creat ratio 21 mg/g_ creat 0-29 Alicia l: 0 - 29 Moder ately incre ased: 30 - 300 Sever johanna incre ased: >300 Not Available [facility] ([facility]) [address] [facility], [place], [address], 04/27/2025 16:06:15 04/26/20 25 04/27/2025 VITAM IN B12 AND FOLAT E vitamin B12 261 pg/mL 232-12 45 normal Not Available [facility] ([facility]) [address] [facility], [place], [address], 04/27/2025 16:06:16 04/26/20 25 04/27/2025 VITAM IN B12 AND FOLAT E folate (folic acid), serum 5.5 NG/mL >3.0 normal A serum folat e wilian ntrat ion of less than 3.1 ng/mL is consi dered to repre sent clini mary defic iency . Not Available [facility] ([facility]) [address] [facility], [place], [address], 04/27/2025 16:06:16 04/26/20 25 04/26/2025 HEMOG LOBIN A1C hemoglobin A1C 6.5 % 4.8-5. 6 above high normal Predi abete s: 5.7 - 6.4 Diabe kavita: >6.4 Glyce ramona contr ol for adult s with diabe kavita: <7.0 Not Available [facility] ([facility]) [address] [facility], [place], [address], 04/27/2025 16:06:16 10/20/19 25 10/19/2024 arter ial study , lower extre mity, compl ete No observ ation record ed. [email or web address] [facility] [address] [place], [address], 10/24/2024 09:08:08 10/25/19 25 10/21/2024 imagi ng/di agnos tic resul t No observ ation record ed. ANGELIC [facility] [address] [facility] [facility], [place], [address], 10/24/2024 11:52:02 03/10/20 25 medic al state ment for utili ties No observ ation record ed. ANGELIC Not Available 2024 10:45:53 06/03/20 25 06/02/2025 MRI, brain , w/o contr ast No observ ation record ed. [email or web address] [facility] [address], [address], 06/05/2025 16:03:37 Result Notes None recorded. Problems Name Problem SNOMED Code Status Onset Date Resolution Date Notes Provider Name and Address Organization Details Recorded Time Bilateral arthritis of knees 619845878568 9108 Active Concepción Wayne null, [place] [facility] 13:16:30 Bipolar disorder 63639468 Active Bipolar disorder NOS Concepción [place] null, [place] - [facility] 4 13:16:43 Osteoarth ritis 536143513 Active DJD (degenera tive joint disease), lumbar Concepción [place] null, [place] - [facility] 4 13:17:01 Fibromyal jovani 270356239 Active Concepción [place] null, [place] - [facility] 4 13:17:13 Post-trau matic stress disorder 16762497 Active Concepción [place] [facility] 13:17:31 Spinal stenosis of lumbar region 54560170 Active Concepción [place], [place] - [facility] 4 13:17:43 Thyroid nodule 915340143 Active Concepción Wayne null[place] [facility] 13:17:52 Urinary incontine nce 310876169 Active Concepción Wayne null, [place] - [facility] 4 13:18:03 Venous insuffici ency of lower limb 643883640 Active Concepción [place] null[place] - [facility] 13:18:13 Anticoagu lant therapy Active Anticoagu lant long-term use Concepción [place] null, [place] - [facility] 4 13:18:28 Bursitis of right shoulder 978267230308 107 Active Concepción [place] null, [place] [facility] 14:00:26 Cervical radiculop athy 95705124 Active Cervical radiculop athy - left Concepción [place] null, [place] - [facility] 4 14:00:42 Chronic back pain 180234121 Active Concepción [place] null, [place] [facility] 14:00:52 Celluliti s 106325644 Active Concepción [place] [facility] 4 14:01:17 Deep venous thrombosi s of lower extremity 279506032 Active Chronic deep vein thrombosi s (DVT) Concepción [place], [place] - [facility] 4 14:01:31 Chronic diastolic heart failure 688410079 Active Concepción [place] null, [place] - [facility] 4 14:01:41 Chronic obstructi ve pulmonary disease 55975856 Active Concepción [place] null[place] - [facility] 4 14:01:53 Chronic pain syndrome 368621490 Active Concepción [place] - [facility] 4 14:02:02 Nicotine dependenc e 70385150 Active Cigarette nicotine dependenc e with nicotine- induced disorde Concepciónleyla Black null, [place] - [facility] 4 14:02:32 Epistaxis care Active Concepción [place] - [facility] 4 14:04:19 Tremor 04624051 Active Essential tremor Concepción [place] null, [place] - [facility] 4 14:04:34 Fatigue 80306451 Active Concepción [place] - [facility] 4 14:05:08 Hyperpara thyroidis m 84685159 Active Concepción [place] - [facility] 4 14:06:31 Long-term current use of opiate analgesic drug 125432827329 108 Active Concepción [place] null[place] - [facility] 4 14:06:43 Low back pain 544832111 Active Concepción [place] - [facility] 4 14:07:58 Lymphedem a 621591487 Active Concepción [place] [facility] 4 14:08:33 Nausea 614478382 Active Concepción [place] - [facility] 4 14:08:50 Overactiv e urinary bladder 238391579 Active Concepción [place] - [facility] 4 14:09:04 Paroxysma l atrial flutter 785550068 Active Concepción [place] null[place] - [facility] 4 14:09:24 Somatic pain 49603090 Active Persisten t moderate somatic symptom disorder with predomina nt pain Concepción [place] null, [place] - [facility] 4 08:05:45 Restless legs syndrome 47260837 Active Concepción [place] null[place] - [facility] 4 08:06:07 Recurrent bacterial cystitis 909099578 Active Concepción [place] - [facility] 4 08:06:17 Sciatica 73026283 Active Concepción [place] - [facility] 4 08:06:27 Acquired scoliosis 018816919 Active Concepción Wayne null[place] - [facility] 4 08:06:42 Obstructi ve sleep apnea syndrome 84669636 Active Severe obstructi ve sleep apnea-hyp opnea syndrome Concepción Wayne null[place] - [facility] 4 08:06:55 Hyperglyc emia due to type 2 diabetes mellitus 363845216083 109 Active Concepción [place] null[place] - [facility] 4 08:07:20 Periphera l 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 2 diabetes mellitus 563765256465 7 Active Concepción Wayne null[place] [facility] 4 08:07:31 Chronic ulcer of left lower leg Active 2024 Joanne Flaherty m null, [place] - [facility] 5 13:28:55 Chronic periphera l venous hypertens ion with lower extremity complicat ion 540979009429 105 Active 2024 Joanne Krystina m null, [place] - [facility] 5 13:28:55 Type 2 diabetes mellitus with ulcer 151469707 Active 2024 Joanne Krystina m null, [place] [facility] 5 13:28:55 Venous hypertens ion of lower limb 224815440 Active 2024 Joanne Flaherty m null, [place] [facility] 5 13:28:55 Periphera l arterial disease 424964362 Active 2024 Joanne Flaherty m null, [place] [facility] 5 13:28:55 Notes:DJD (degenerative join t disease), lumbar, Encounter for screening colonoscopy, Prophylactic antibiotic - daily Pen VK for lymphedema , prevention of cellulitis, Problem Notes None recorded. Procedures Surgical History Date Name Laterality Status Provider Name and Address Organization Details Recorded Time 4 Most Recent Mammogram completed Concepción Black MA [facility] 05/13/2024 08:08:45 Imaging Results None recorded. Procedure Notes None recorded. Medical Equipment None Reported. Allergies Allergen ID Allergen Name Allergen Category Reaction Reaction Severity Criticality Documentation Date Start Date Code Code System Note Provider Name and Address Organization Details Recorded Time 6467 adhesive environme nt,medica tion Not available Not available Not available 05/13/2024 bad rash- blist ering /peel ing Concepción acosta [place] [facility] 4 08:08:00 6468 house dust allergeni c extract environme nt,medica tion Not available Not available Not available 05/13/2024 42616 9 RxNorm copd exac/ sinus conge stion Concepción acosta [place] [facility] 4 08:08:08 9390 Adhesive agent (substanc e) environme nt,medica tion Not available Not available Not available 06/09/20252022 57508 0007 SNOMED Not Available angelic - External Data Service - prod 5 16:28:55 Medications Name Sig Start Date Stop Date [...] Not Available metformin 500 mg tablet TAKE ONE TABLET BY MOUTH TWICE A DAY 2024 active Not Available Not Available Not Avai lable fentanyl 50 mcg/hr transderm al patch APPLY 1 PATCH TOPICALL Y TO THE SKIN EVERY 72 HOURS 09/13 completed Not Available Not Available Not Available clonidine HCl 0.1 mg tablet 0.1 mg by oral route. 05/20 completed Not Available Not Available Not Available acetamino phen 325 mg tablet TAKE TWO TABLETS BY MOUTH EVERY 6 HOURS NEEDED FOR MODERATE PAIN. 2024 active Not Available Not Available Not Avai lable prednison e 10 mg tablet Take 1 tablet every day by oral route. 12/09 completed Not Available Not Available Not Available lamotrigi ne 200 mg tablet 200 mg by oral route. 2024 active Not Available Not Available Not Avai lable nicotine 14 mg/24 hr daily transderm al patch APPLY 1 PATCH TOPICALL Y TO THE SKIN EVERY DAY 07/04 completed Not Available Not Available Not [...] Not Available topiramat e 25 mg tablet Take 25 mg twice a day by oral route. active unclear if on this Not Available Not Available Not Available tramadol [...] Not Avai lable lorazepam 0.5 mg tablet Take 0.5 mg every 6 hours by oral route. 07/04 completed Not Available Not Available Not Available OneTouch Ultra Test strips USE DIRECTED TO TEST BLOOD GLUCOSE THREE TIMES DAILY active Not Available Not Available No t Available doxycycli ne monohydra te 100 mg capsule 12/09 completed Not Available Not Available Not Available cephalexi n 500 mg capsule TAKE 1 CAPSULE BY MOUTH TWICE DAILY FOR 5 DAYS 04/04 completed Not Available Not Available Not Available [...] 21 mg/24 hr daily transderm al patch APPLY 1 PATCH EVERY DAY active Not Available Not Available No t Available docusate sodium 100 mg capsule 05/20 [...] Available gabapenti n 100 mg capsule TAKE ONE CAPSULE BY MOUTH THREE TIMES A DAY 2024 active Not Available Not Available Not Avai lable fentanyl 25 mcg/hr transderm al patch Apply 1 patch every 72 hours by transder mal route for 15 days. 07/04 completed Not Available Not Available Not Available albuterol sulfate HFA 90 mcg/actua tion aerosol inhaler INHALE 2 PUFFS BY MOUTH EVERY 4 HOURS NEEDED FOR WHEEZING OR FOR SHORTNES S OF BREATH 2024 active Not Available Not Available Not Avai lable fentanyl 75 mcg/hr transderm al patch APPLY 1 PATCH TOPICALL Y TO THE SKIN EVERY 72 HOURS active Not Available Not Available No t Available ipratropi um bromide 21 mcg (0.03 [...] completed Not Available Not Available Not Available nitrofura ntoin monohydra te/macroc rystals 100 mg capsule TAKE 1 CAPSULE BY MOUTH EVERY 12 HOURS FOR 5 DAYS 07/04 completed Not Available Not Available Not Available DILT-XR 240 mg capsule, extended release 05/20 completed Not Available Not Available Not Available duloxetin e 20 mg capsule,d elayed release Take 20 mg by oral route. 2024 active Not [...] Xarelto 2.5 mg tablet Take 1 tablet every day by oral route. active Not Available [...] (BMI) Body weight Heart rate Oxygen saturation Systolic And Diastolic Provider Name and Address Organization Details Last Updated DateTime 5 160.02 cm 47.3 kg/m2 448238. 16 g 85 /min 99 % 138/82 mm[Hg] Joanne Krystina gomez [facility] 5 10:20:23 Date Recorded Body height Body mass index (BMI) Body weight Heart rate Oxygen saturation Systolic And Diastolic Provider Name and Address Organization Details Last Updated DateTime 5 160.02 cm 45.2 kg/m2 822233. 49 g 86 /min 99 % 144/80 mm[Hg] Marimar Mayfield RN [address] [facility] [address], [place], [address] [facility] 5 11:15:04 Date Recorded Body height Body mass index (BMI) Body weight Heart rate Oxygen saturation Systolic And Diastolic Provider Name and Address Organization Details Last Updated DateTime 5 160.02 cm 43.6 kg/m2 431706. 72 g 69 /min 96 % 122/74 mm[Hg] Joanne Flaherty jason [facility] 5 13:24:01 Date Recorded Body height Body mass index (BMI) Body weight Oxygen saturation Heart rate Systolic And Diastolic Provider Name and Address Organization Details Last Updated DateTime 5 160.02 cm 43.9 kg/m2 965454. 91 g 99 % 71 /min 128/76 mm[Hg] Nina Watters [facility] 5 13:38:20 Date Recorded Body height Body mass index (BMI) Body weight Oxygen saturation Heart rate Systolic And Diastolic Provider Name and Address Organization Details Last Updated DateTime 5 160.02 cm 42.3 kg/m2 384621. 58 g 98 % 114 /min 130/74 mm[Hg] Nina Pedersenwinstonlennox [facility] 5 11:41:02 Social History Question Answer Notes LastModified by Organizat ion Details LastModified Time Tobacco Smoking Status Current Every Day Smoker Joanne Fierro [facility] 05/20/2024 10:13:01 How Much Tobacco Do You Smoke? 1 [facility] Information not available 05/20/2024 Sex: Unknown Functional Status None recorded. Mental Status None recorded. Family History Nothing Reported. Medical History No medical history recorded. Gynecological History Statement/Question Response Most Recent Mammogram 08/14/2023 Obstetrics History GPAL:G 0 P 0 0 0 0 Immunizations Vaccine Type Date Status Note Provider Nam e and Address Organization Details Recorded Time Pneumococcal conjugate PCV20, polysaccharide MYB023 conjugate, adjuvant, PF 3 completed Joanne Fierro null, [place] [facility] 05/20/2024 10:12:30 Tdap 2 completed Concepción Black null, [place] [facility] 05/13/2024 08:11:18 COVID-19, mRNA, LNP-S, PF, 30 mcg/0.3 mL dose 1 completed Joanne Fierro null, [place] [facility] 05/20/2024 10:12:30 COVID-19, mRNA, LNP-S, PF, 30 mcg/0.3 mL dose 1 completed Joanne Betancourtarianna null, [place] [facility] 05/20/2024 10:12:30 COVID-19, mRNA, LNP-S, PF, 30 mcg/0.3 mL dose, lenin-sucrose 2 completed Joanne Betancourtarianna null, [place] [facility] 05/20/2024 10:12:30 Tdap 7 completed Joanne Fierro null, [place] [facility] 05/20/2024 10:12:30 Influenza, split virus, trivalent, preservative 0 completed Joanne Betancourtarianna null, [place] [facility] 05/20/2024 10:12:30 Influenza, split virus, trivalent, preservative 1 completed Joanne Fierro null, [place] [facility] 05/20/2024 10:12:30 Influenza, split virus, trivalent, preservative 9 completed Joanne Fierro null, [place] [facility] 05/20/2024 10:12:30 Influenza, split virus, trivalent, preservative 2 completed Joanne Fierro null, [place] [facility] 05/20/2024 10:12:30 Influenza, split virus, trivalent, preservative 7 completed Joanne Burlingham null, [place] [facility] 05/20/2024 10:12:30 Influenza, split virus, trivalent, preservative 3 completed Joanne Asiaham null, [place] [facility] 05/20/2024 10:12:30 Influenza, split virus, trivalent, preservative 8 completed Joanne Burlingham null, [place] [facility] 05/20/2024 10:12:30 Influenza, split virus, trivalent, preservative 1 completed [facility] [facility] 05/20/2024 10:12:30 Influenza, split virus, trivalent, PF 5 completed [place] [facility] 05/20/2024 10:12:30 Influenza, split virus, trivalent, PF 7 completed [place]adim [place] [facility] 05/20/2024 10:12:30 Hep B, adult 2 completed [place]anne Vadim [place] [facility] 05/20/2024 10:12:30 Influenza, recombinant, trivalent, PF 5 completed Not Available [facility] 07/04/2025 11:30:01 Pneumococcal conjugate PCV20, polysaccharide PGC858 conjugate, adjuvant, PF 5 completed Not Available [facility] 07/04/2025 11:30:01 RSV, recombinant, protein subunit RSVpreF, adjuvant reconstituted, 0.5 mL, PF 5 completed Not Available [facility] 07/04/2025 11:30:01 zoster recombinant 5 completed Not Available [facility] 07/04/2025 11:30:01 Tdap 5 completed Not Available [facility] 07/04/2025 11:30:01 zoster recombinant 5 completed Not Available [facility] 07/04/2025 11:30:01 Past Encounters Encounter ID Performer Location Encounter Start Date Encounter Closed Date Diagnosis/Indication Diagnosis SNOMED-CT Code Diagnosis ICD10 Code Diagnosis IMO Codes Diagnosis Note [id number] GIOVANNA ROSAS [address] [place] [address] 05/20/2024 09:56:32 05/20/2024 10:30:07 Patient new to provider [id number] 59716 Z76.89 The following time was spent on todays E/M encounter, including preparing for the visit, reviewing results, seeing the patient, and documentat ion on the date of service of the encounter: 45 90099 15-29 minutes 18724 30-44 minutes 52915 45-59 minutes 30602 60-74 minutes 38590 10-19 minutes 26086 20-29 minutes 32039 30-39 minutes 67383 40-54 minutes Type 2 paris betes mellitus 28380099 E11.21 Due for hemoglobin A1c at next visit will ascertain about last retinal dilated retinal exam Atrial fibrillation 4943 6004 I48.91 recent ablation per patientrec ords unavailabl triny NOAC Major depr essive disorder 741784761 F32.9 chronic, stable Chronic low back pain [address] José for pain management [id number] Dallas Char José, [address] [place] [address] 06/15/2024 09:15:00 06/15/2024 09:55:52 Moderate chronic obstructive pulmonary disease 831951906 J44.9 Paroxysmal atrial fibrillation 659335455 I48.0 Spinal anthony nosis of lumbar region 66513527 M48.062 Uncontroll ed type 2 diabetes mellitus 819964291 E11.65 Continuous dependence on cigarette smoking 3707322686 27416 F17.210 [id number] GIOVANNA ROSAS [address] [facility] [address] 07/04/2024 09:54:44 07/04/2024 10:43:38 Degeneration of cervical intervertebral disc 55090233 M50.30 Patient would like to start physical therapy for her cervical disc disease. She has used [facility] in the past and would like to return there referral sent. Chronic pain 77080385 G8 9.29 We do long discussion about [...] 3-month contract for controlled substances . Spinal anthony nosis of lumbar region 35490599 M48.061 Patient has failed to cord stimulator s and is on chronic opiates. [id number] GIOVANNA ROSAS [facility] [address] [place] [address],[address] [place] [address] 08/03/2024 10:14:01 08/03/2024 10:41:06 Chronic pain syndrome 803247040 G89.4 will step dose to next leveldiscu ssed with patient that we will never be able to aleviate all her pain and that she should not do activities that cause painfollow up one month Chronic back pain 003446 002 M54.9 will augment pain control with prn heating pad Weakness of left hand 15 01900712 8607312 R29.898 cervical disc disease with residual left hand weakness referral for OT evaluation Hyperglyce carina due to type 2 diabetes mellitus 2905961674 62930 E11.65 due for labs and follow up discussed with patient [id number] GIOVANNA ROSAS [address] [place] [address] 09/13/2024 10:45:15 09/13/2024 11:26:32 Peripheral vascular disease 432922168 I73.9 discussed strict elevation while sittingUrg ent wound care appointmen t, pt agrees to [place] if cannot get in [facility] dGentle soap and water, pat dry discusseds een in ED for cellulitis on abx Chronic ob structive pulmonary disease 96136607 J44.9 GOLD stage 1 chronic obstructiv e [...] carina due to type 2 diabetes mellitus 4832058523 32868 E11.65 due for labs and follow up discussed with patient Paroxysmal atrial fibrillation 984465880 I48.0 chronic stable [id number] GIOVANNA ROSAS [address] [place] [address] 12/09/2024 13:13:05 12/09/2024 13:38:53 Atrial flutter 9988595 I48.92 [id number] on NOAC and calcium channel denilson, has cardiology follow upChronic diastolic heart failure, not interested in dietary modificati ons Chronic bronchitis 16084 004 J42 488766501 GOLD stage 1 chronic obstructiv e pulmonary disease, centrilobu lar emphysema, pulmonary nodules, cigarette nicotine dependence , severe obstructiv e sleep apnea on autoBIPAP, allergic rhinitisSt ill smoking 2 ppd, not interested in quittingHa s followup pulmonolog y in [place] [id number] GIOVANNA ROSAS [address] [place] [address] 04/04/2025 13:32:45 04/04/2025 14:04:23 Memory impairment 292287861 R41.3 717591 The following time was spent on todays E/M encounter, including preparing for the visit, reviewing results, seeing the patient, and documentat ion on the date of service of the encounter: 45 51898 15-29 minutes 43111 30-44 minutes 90911 45-59 minutes 16265 60-74 minutes 48957 10-19 minutes 78146 20-29 minutes 88590 30-39 minutes 84208 40-54 minutes Urinary symptoms 3257489 08 R39.9 82319553 dipstick negative today, advised to finish abx, push fluids, cx pending Type 2 paris betes mellitus with ulcer 168246597 E11.622 due for labs [id number] GIOVANNA ROSAS [address] [place] [address] 07/04/2025 11:29:33 07/04/2025 12:01:33 Screening mammography 81546600 Z12.31 [id number] due for mammo, order placed Screening for malignant neoplasm of colon 540853211 Z12.11 905927 overdue for colon cancer screening, agrees to referral to GI Cigarette smoker 6648376 7 F17.210 324583 discussed strategies for quitting Tremor 69744652 R25.1 12276 Refer to neurology, discussed essential tremor, parkinson, 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 chronic stable Chronic ob structive pulmonary disease 18170888 J44.9 GOLD stage 1 chronic obstructiv e [...] ation presenting for follow up of COPD. has pulmonolog y follow up, smoking cessation is advised Health Concerns Section Related Observation LastModified by Organization Detai ls LastModified Time None Recorded Concern Status LastModified by Organization Details LastModified Time None Recorded Advance Directives Directive None Recorded Payers Insurance Date Sequence Insurance Name Policy Number Policy Guillen Covered Member ID Guillen Member ID Guarantor Name 07/10/2025 1 [facility] - DOS ON OR AFTER 2022 - MEDICARE [place]VANTAGE [place]ICARE REPLACEMENT/ADV ANTAGE - PPO) Shruthi Orosco [id number] Shruthi Orosco Notes Date Note Type Note Provider Name and Address Organization Details Recorded Time 5 text/html ROS as noted in the HPI Fasting glucose in the 220 range had ran out of her Metformin beginning of June and recently restartedChronic back pain with failed back syndrome states the fentanyl patches have worked initially with increase dose but then she overdid housework and had worsening pain. States pain worse with standing. No side effects/constipation or jittery GIOVANNA ROSAS [address] [facility], [facility] [address], [place], [address], [place] [facility] 08/05/2024 12:35:27 5 text/html ROS as noted in the HPI Shruthi is here for follow up ER, note unavailable and 3 months follow up chronic emilyShcody was seen in ED for bilateral lower [...] with walker Denies constipaton GIOVANNA ROSAS [address] [facility], [facility] [address], [place], [address], [place] [facility] 09/13/2024 13:05:23 5 text/html ROS as noted in the HPI here for hospital follow upRecent back to back hospitalizations for COPD exacerbation and then atrial flutterHas cardiology appt next week [facility] Taking Xaltreo but only once dailyPulmonology I need to make follow up appt They discussed me having a test or starting rehab unsure Venous stasis ulcers on legs cleared and cancelled wound center followup Smoking 1-2 ppd smokingDenies chest pain, dyspnea worse then usual or pedal edema GIOVANNA ROSAS [address] [facility], [facility] [address], [place], [address], [place] [facility] 12/12/2024 16:27:19 5 text/html ROS as noted in the HPI Shruthi Orosco, age 59, female- Progressive forgetfulness and memory loss, worsening over time- Episodes of disorientation in familiar areas while driving- Difficulty recalling words and objects, frequent word-finding pauses- Repeatedly forgetting tasks and conversations mid-sentence- Requires multiple readings to comprehend written material, difficulty following recipes- Burning pain and soreness on top of left foot, worsened by touch, associated with neuropathy- Sensation of bunching under toes of left foot, numbness extending to toes- Occasional similar numbness in other areas, but left foot is most affected- History of hand tremor and inability to fully close fingers, physical therapy not attended due to hospitalizations and personal issues- Hospitalized twice in summer for bronchitis, first for a few days, then returned the next day due to persistent symptoms- During second hospitalization, experienced high heart rate and low blood pressure, diagnosed with heart failure, started on new heart medication (possibly citalazine) NO MEDICAL RECORDS AVAILABLE- Reports daily use of albuterol inhaler and Trelegy for respiratory symptoms- Recent pulmonology evaluation, told COPD is low risk- Smoking history, currently down to 1.5 packs per day, previously nearly 2 packs per day- Reports feeling isolated at home, considering joining [employer] for activities GIOVANNA ROSAS [address] [place] [address], [place], [address], [place] [facility] 04/06/2025 16:38:38 5 text/html [place] Dr Mcqueen cardiology follows for her P-AfibPulmonologist Dr Mahmood [facility], has psychiatrist and therapistSmoking 1 ppd, wants to quit doing patchesFeels like her memory is an issue, labs and MRI WNL, spends most days alone with her dog in apartment. Per pt psych therapist is working to get her involved in senior centerC/O worsening tremor both upper arms, stops with GIOVANNA ROSAS [address] [facility] [address], [place], [address], [place] [facility] 07/06/2025 09:17:21 OBGyn Episode No OBEpisode recorded.
--- OUTSIDE RECORDS SUMMARY | 2025-07-21 22:01 | XMS_ITS | Clinical Summary ---
Author Organization [facility] Address [address] [place] [address] Care Team Providers Care Meal Cook Name Role Phone Unavailable Primary Care Provider Unavailabl e Social History Tobacco Use Types Packs/Day Years Used Date Smoking Tobacco: Never Assessed Comments Unknown Sex and Gender Information Value Date Recorded Sex Assigned at Not on file Legal Sex Female 9:33 PM EST Gender Identity Not on file Sexual Orientation Not on file Plan of Treatment Health Maintenance Due Date Last Done Comments Blood Pressure 1965 Lipid Panel 1965 Depression Screening 1975 Hepatitis C Screening 12/25/1981 DTaP,Tdap,and Td Vaccines (1 - Tdap) 12/25/1982 Pap Smear 12/25/1984 Cervical Cancer Screening 12/25/1993 HPV/Cotest 12/25/1993 Breast Cancer Screening 2003 CT Colonography 12/25/2008 Colonoscopy 12/25/2008 Colorectal Cancer Screening 12/25/2008 FIT 12/25/2008 FOBT 12/25/2008 Multitarget Stool DNA (Cologuard) 12/25/2008 Sigmoidoscopy 12/25/2008 Pneumococcal Vaccine: 50+ Ye ars (1 of 1 - PCV) 12/25/2013 Zoster Vaccine (1 of 2) 12/25/2013 COVID-19 Vaccine (2024-2 6 season) 2025 Influenza Vaccine (#1) 2025 Meningococcal B Vaccines Aged Out No longer eligible based on patient's age to complete this topic Meningococcal Vaccines Aged Out No lo nger eligible based on patient's age to complete this topic
--- OUTSIDE RECORDS SUMMARY | 2025-07-21 22:01 | XMS_ITS ---
Care Plan Created on: July 21, 2025 Kwesi Shruthi : 1965 Sex: Female Author Organization [facility] Address [address] [place] [address] Phone Care Team Providers Care Electrical Plumbing Supervisor Name Role Phone Dallas José DO Primary Care Provider [phone] Active Problems Problem Noted Date Diagnosed Date Chronic venous hypertension (idiopathic) with ulcer of left lower extremity (CODE) 09/26/2024 Chronic venous hypertension (idiopathic) with other complications of right lower extremity 09/26/2024 Non-pressure chronic ulcer o f other part of left lower leg with fat layer exposed 09/26/2024 PAD (peripheral artery disease) 09/26/2024 Type 2 diabetes mellitus with other skin ulcer ( CODE) 09/26/2024 Additional Health Concerns Active Problems Noted [...] impact of smoking on wound No Navya Trejo RN Reduce tobacco use (cigarettes, smokeless, etc) Care Plan Education needed on impact of smoking on wound No Navya Trejo RN Decrease Wound Volume by X% by date (in notes) Care Plan Education needed on impact of smoking on wound No Navya Trejo RN Patient and Caregiver Understand Wound Care [...]
--- OUTSIDE RECORDS SUMMARY | 2025-07-21 22:01 | XMS_ITS | Continuity of Care Document ---
Author Organization [place] [facility] Address [address] [facility] [address] [place] [address] Care Team Providers Care Marketing Development Manager Name Role Phone SHERRY GUEVARA Skin Care Therapist Unavailable Assessment Encounter Date Assessment Date Assessment LastModified by Organization Details LastModified Time 07/04/2025 07/04/2025 The following time was spent on todays E/M encounter, including preparing for the visit, reviewing results, seeing the patient, and documentation on the date of service of the encounter: 45 35100 15-29 minutes 93565 30-44 minutes 46189 45-59 minutes 01002 60-74 minutes 14201 10-19 minutes 50782 20-29 minutes 82020 30-39 minutes 79182 40-54 minutes [email or web address] Not available 07/04/2025 17:16:43 Plan of Treatment Reminders Order Date Submit Date Provider Last Modified By Organization Details Last Modified Time Details Appointments FOLLO W UP 20 2025 10:10A M GIOVANNA ROSAS Not available Not available Not available Lab None recor ded. Referral neuro logis t refer [facility] 2024 025 [facility], [address] [place] [address], [id number], 07/06/2025 09:40:28 gastr yue grewal ist refer [facility] 2024 025 [facility], [address] [place] [address] Dr, [facility], [place], [address], 07/06/2025 09:45:23 Procedures None recor ded. Surgeries None recor ded. Imaging MAMMO , scree gregory, sylvia stewart eral 2024 025 [email or web address] [facility] ([facility]), [place], [address], 07/06/2025 09:32:44 Medication Orders nicot ine 21 mg/24 hr daily trans derma l patch 2024 025 [id number], [id number] [facility], [place], [id number], 07/04/2025 11:49:06 Patient TargetsNo targets recorded. Patient InstructionsNo instructions recorded. Reason for Referral Recreational Counselor Referral for Screening for malignant neoplasm of colon Referring Physician: Viky Perez, Internal Medicine, Encounter Date: 07/04/2025 Neurologist Referral for Keenan mor Referring Physician: Viky Perez, Internal Medicine, Encounter Date: 07/04/2025 Problems Name Problem SNOMED Code Status Onset Date Resolution Date Notes Provider Name and Address Organization Details Recorded Time Bilateral arthritis of knees 328313661819 9164 Active Concepción Wayne null, [place] [facility] 13:16:30 Bipolar disorder 01522819 Active Bipolar disorder NOS Concepción [place] [facility] 13:16:43 Osteoarth ritis 422848278 Active DJD (degenera tive joint disease), lumbar Concepción [place], [place] [facility] 13:17:01 Fibromyal jovani 348781856 Active Concepción [place] [facility] 13:17:13 Post-trau matic stress disorder 81644010 Active Concepción [place] [facility] 13:17:31 Spinal stenosis of lumbar region 02077916 Active Concepción [place] [facility] 13:17:43 Thyroid nodule 956678864 Active Concepción [place] [facility] 13:17:52 Urinary incontine nce 737381002 Active Concepción [place] [facility] 4 13:18:03 Venous insuffici ency of lower limb 285171328 Active Concepción [place] [facility] 4 13:18:13 Anticoagu lant therapy Active Anticoagu lant long-term use Concepción Wayne [place], [place] [facility] 4 13:18:28 Bursitis of right shoulder 600714250958 107 Active Concepción [place] [facility] 4 14:00:26 Cervical radiculop athy 53545938 Active Cervical radiculop athy - left Concepción [place] [facility] 4 14:00:42 Chronic back pain 339633856 Active Concepción [place] [facility] 4 14:00:52 Celluliti s 756164913 Active Concepción [place] [facility] 4 14:01:17 Deep venous thrombosi s of lower extremity 000993824 Active Chronic deep vein thrombosi s (DVT) Concepción [place], [place] [facility] 4 14:01:31 Chronic diastolic heart failure 041792062 Active Concepción [place] [facility] 4 14:01:41 Chronic obstructi ve pulmonary disease 57079408 Active Concepción [place] [facility] 4 14:01:53 Chronic pain syndrome 976849785 Active Concepción [place] [facility] 4 14:02:02 Nicotine dependenc e 19221324 Active Cigarette nicotine dependenc e with nicotine- induced disorde Concepción [place] [facility] 4 14:02:32 Epistaxis care Active Concepción [place] [facility] 4 14:04:19 Tremor 72368887 Active Essential tremor Concepción [place] [facility] 4 14:04:34 Fatigue 85573159 Active Concepción Wayen [place] [facility] 4 14:05:08 Hyperpara thyroidis m 16273425 Active Concepción [place] [facility] 4 14:06:31 Long-term current use of opiate analgesic drug 188702139834 108 Active Concepción [place] [facility] 4 14:06:43 Low back pain 640716920 Active Concepción [place] [facility] 4 14:07:58 Lymphedem a 334098220 Active Concepción [place] [facility] 4 14:08:33 Nausea 648111719 Active Concepción [place] [facility] 4 14:08:50 Overactiv e urinary bladder 351638485 Active Concepción [place] [facility] 4 14:09:04 Paroxysma l atrial flutter 292649091 Active Concepción [place] [facility] 4 14:09:24 Somatic pain 57458771 Active Persisten t moderate somatic symptom disorder with predomina nt pain Concepción [place] [facility] 4 08:05:45 Restless legs syndrome 43712484 Active Concepc[place] [facility] 4 08:06:07 Recurrent bacterial cystitis 711916532 Active Concepción [place] [facility] 4 08:06:17 Sciatica 03228806 Active Concepción [place] [facility] 4 08:06:27 Acquired scoliosis 516253025 Active Concepción [place] [facility] 4 08:06:42 Obstructi ve sleep apnea syndrome 88047215 Active Severe obstructi ve sleep apnea-hyp opnea syndrome Concepción [place] [facility] 4 08:06:55 Hyperglyc emia due to type 2 diabetes mellitus 642905245898 109 Active Concepc[place] [facility] 4 08:07:20 Periphera l 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 2 diabetes mellitus 805162908188 7 Active Concepción [place] [facility] 4 08:07:31 Chronic ulcer of left lower leg Active 2024 Joanne acosta, [place] [facility] 5 13:28:55 Chronic periphera l venous hypertens ion with lower extremity complicat ion 187488605058 105 Active 2024 Joanne acosta, [place] [facility] 5 13:28:55 Type 2 diabetes mellitus with ulcer 447145552 Active 2024 Joanne acosta, [facility] 5 13:28:55 Venous hypertens ion of lower limb 966528423 Active 2024 Joanne acosta, [facility] 5 13:28:55 Periphera l arterial disease 639836142 Active 2024 Joanne acosta, [place] - [facility] 5 13:28:55 Notes:DJD (degenerative join t disease), lumbar, Encounter for screening colonoscopy, Prophylactic antibiotic - daily Pen VK for lymphedema , prevention of cellulitis, Problem Notes None recorded. Procedures Surgical History Date Name Laterality Status Provider Name and Address Organization Details Recorded Time 4 Most Recent Mammogram completed Concepción Black [facility] 05/13/2024 08:08:45 Imaging Results None recorded. Procedure Notes None recorded. Medical Equipment None Reported. Allergies Allergen ID Allergen Name Allergen Category Reaction Reaction Severity Criticality Documentation Date Start Date Code Code System Note Provider Name and Address Organization Details Recorded Time 6467 adhesive environme nt,medica tion Not available Not available Not available 05/13/2024 bad rash- blist ering /peel ing Concepción acosta [facility] 4 08:08:00 6468 house dust allergeni c extract environme nt,medica tion Not available Not available Not available 05/13/2024 53489 9 RxNorm copd exac/ sinus conge stion Concepción acosta [facility] 4 08:08:08 9390 Adhesive agent (substanc e) environme nt,medica tion Not available Not available Not available 06/09/20252022 01138 0007 SNOMED Not Available angelic - External Data Service - prod 16:28:55 Medications Name Sig Start Date Stop [...] completed Not Available Not Available Not Available [employer] Ultra Test strips USE DIRECTED TO TEST [...] and Address Organization Details Last Updated DateTime 160.02 cm 42.3 kg/m2 321081. 58 g 98 % 114 /min 130/74 mm[Hg] Nina Watters [facility] 5 11:41:02 Social History Question Answer Notes LastModified by Organizat ion Details LastModified Time Tobacco Smoking Status Current Every Day Smoker Joanne Fierro [facility], [facility] 05/20/2024 10:13:01 How Much Tobacco Do You Smoke? 1 [facility] Information not available 05/20/2024 Sex: Unknown Functional Status None recorded. Mental Status None recorded. Family History Nothing Reported. Medical History No medical history recorded. Gynecological History Statement/Question Response Most Recent Mammogram 08/14/2023 Obstetrics History GPAL:G 0 P 0 0 0 0 Immunizations Vaccine Type Date Status Note Provider Nam e and Address Organization Details Recorded Time Pneumococcal conjugate PCV20, polysaccharide POJ400 conjugate, adjuvant, PF 3 completed Joanne Fierro null, [place] [facility] 05/20/2024 10:12:30 Tdap 2 completed Concepción Tothke [place], [place] [facility] 05/13/2024 08:11:18 COVID-19, mRNA, LNP-S, PF, 30 mcg/0.3 mL dose 1 completed Joanne Fierro [place], [place] [facility] 05/20/2024 10:12:30 COVID-19, mRNA, LNP-S, PF, 30 mcg/0.3 mL dose 1 completed Joanne Fierro [place] [facility] 05/20/2024 10:12:30 COVID-19, mRNA, LNP-S, PF, 30 mcg/0.3 mL dose, lenin-sucrose 2 completed Joanne [place] [facility] 05/20/2024 10:12:30 Tdap 7 completed Joanne [place]ierro [place] [facility] 05/20/2024 10:12:30 Influenza, split virus, trivalent, preservative 0 completed Joanne Fierro null, [place] [facility] [...] split virus, trivalent, preservative 7 completed Joanne [place] [facility] 05/20/2024 10:12:30 Influenza, split virus, trivalent, preservative 3 completed Joanne [place]ierro [place] [facility] 05/20/2024 10:12:30 Influenza, split virus, trivalent, preservative 8 completed Joanne [facility] null, [place] [facility] 05/20/2024 10:12:30 Influenza, split virus, trivalent, preservative 1 completed Joanne [place] null, [place] [facility] 05/20/2024 10:12:30 Influenza, split virus, trivalent, PF 5 completed Joanne [place] null, [facility] 05/20/2024 10:12:30 Influenza, split virus, trivalent, PF 7 completed Joanne [place] null, [facility] 05/20/2024 10:12:30 Hep B, adult 2 completed Joanne [facility], [facility] 05/20/2024 10:12:30 Influenza, recombinant, trivalent, PF 5 completed Not Available [facility] 07/04/2025 11:30:01 Pneumococcal conjugate PCV20, polysaccharide [id number] conjugate, adjuvant, PF 5 completed Not Available [facility] 07/04/2025 11:30:01 RSV, recombinant, protein subunit RSVpreF, adjuvant reconstituted, 0.5 mL, PF 5 completed Not Available [facility] 07/04/2025 11:30:01 zoster recombinant 5 completed Not Available [facility] 07/04/2025 11:30:01 Tdap 5 completed Not Available [facility] 07/04/2025 11:30:01 zoster recombinant 5 completed Not Available [facility] 07/04/2025 11:30:01 Past Encounters Encounter ID Performer Location Encounter Start Date Encounter Closed Date Diagnosis/Indication Diagnosis SNOMED-CT Code Diagnosis ICD10 Code Diagnosis IMO Codes Diagnosis Note [id number] GIOVANNA ROSAS [facility] [address] [facility],[address] [place] [address] 07/04/2025 11:29:33 07/04/2025 12:01:33 Screening mammography 79451297 Z12.31 4819001 due for mammo, order placed Screening for malignant neoplasm of colon 663476024 Z12.11 531639 overdue for colon cancer screening, agrees to referral to GI Cigarette smoker 5836081 7 F17.210 012739 discussed strategies for quitting Tremor 45263798 R25.1 58172 Refer to neurology, discussed essential tremor, parkinson, 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 chronic stable Chronic ob structive pulmonary disease 62217100 J44.9 GOLD stage 1 chronic obstructiv e [...] Member ID Guillen Member ID Guarantor Name 07/04/2025 1 [facility] - DOS ON OR AFTER 2022 - MEDICARE ADVANTAGE [place] & [place] (MEDICARE REPLACEMENT/ADV ANTAGE - PPO) Shruthi Orosco [id number] Shruthi Orosco Notes Date Note Type Note Provider Name and Address Organization Details Recorded Time 5 text/html Freddy Mcqueen cardiology follows for her P-AfibPulmonologist [facility], has psychiatrist and therapistSmoking 1 ppd, wants to quit doing patchesFeels like her memory is an issue, labs and MRI WNL, spends most days alone with her dog in apartment. Per pt psych therapist is working to get her involved in senior centerC/O worsening tremor both upper arms, stops with GIOVANNA ROSAS [address] [facility] [address], [place], [address], [place] [facility] 07/06/2025 09:17:21 OBGyn Episode No OBEpisode recorded.
--- OUTSIDE RECORDS SUMMARY | 2025-07-21 22:01 | XMS_ITS | Clinical Summary ---
Author Organization [facility] Address [address] [place] [address] Phone Care Team Providers Care Scheduling Specialist Name Role Phone Dallas José DO Primary Care Provider [phone] Allergies Active Allergy Reactions Criticality Noted Date [...] with other skin ulcer ( CODE) 09/26/2024 Surgical History Surgery Date Site/Laterality Comments OTHER SURGICAL HISTORY PROCEDURE: ARTHROSCOPY PROCEDURE NEC; COMMENT: Knee surgery OTHER SURGICAL HISTORY 03/12/09 PROCEDURE: HISTORICAL PANNICULECTOMY LAPAROSCOPIC GASTRIC BANDING PROCEDURE: LAP ADJUSTABLE GASTRIC BAND Medical History * This document contains information received from the source organization and may not represent a complete record from that organization. Medical History Date Comments Edema 08/15/2005 DX:Edema Morbid obesity [place] [place], [facility] [place]28) 08/15/2005 DX:Morbid obesity ([facility]); COM MENT: lap band planned January 23 Other disorder of menstruati on and other abnormal bleeding from female genital tract 08/15/2005 DX:Other disorder of menstru ation and other abnormal bleeding from female genital tract Unspecified asthma(493.90) 08/15/2005 DX:Un specified asthma(493.90) Anxiety state, unspecified 08/15/2005 DX:An xiety state, unspecified Other and unspecified noninf ectious gastroenteritis and colitis(558.9) DX:Other and unspec ified noninfectious gastroenteritis and colitis(558.9); COMMENT: IBS Generalized osteoarthrosis, unspecified site DX:Generalized osteoarthrosi s, unspecified site; COMMENT: Arthritis per patient DVT of lower extremity (deep venous thrombosis) ([facility] [place], [facility] V28) 04/13/2009 DX:DVT of lower extremity (deep venous thrombosis) ([facility]) Diabetes mellitus ([facility] V 24, [facility] V28) COPD (chronic obstructive pu lmonary disease) ([facility], [facility] V28) Family History Medical History Relation Name [...] PM EDT Sexual Orientation Not on file Last Filed [...] Last Done Comments Breast Cancer Screening 1965 Colorectal Cancer Screening: Colonoscopy 1963 Diabetes: Annual GFR (Glomerular Filtration Rate) 1963 Drug Screen 1963 Non-Opioid Controlled Substance Agreement 1963 Diabetes: Annual Foot Exam 12/25/1973 Diabetes: Annual Retina Eye Exam 12/25/1973 Cervical Cancer Screening: Pap Smear 12/25/1984 Hepatitis B Vaccines (2 of 3 - 19+ 3-dose series) 07/12/2002 06/14/2002 RSV Immunization Adult Patients (1 - Risk 50-74 years 1-dose series) 12/25/2013 Zoster Vaccines (1 of 2) 12/25/2013 DTaP,Tdap,and Td Vaccines (3 - Td or Tdap) 09/08/2021 09/08/2011, 12/17/2006 Cholesterol Screening (Lipid Panel) 06/28/2022 HIV Screening 06/28/2022 Hepatitis C Screening 06/28/2022 Medicare Annual Wellness Visit 06/28/2022 Social Influencers of Health Screening 06/28/2022 Depression Screening 07/27/2024 Diabetes: Annual Urine Albumin-Creatinine Ratio (uACR) 09/26/2024 Diabetes: Blood Sugar Control Test (HGBA1C) 09/26/2024 Hypertension/CHF/CAD Annual BMP Blood Test 10/04/2024 COVID-19 Vaccine ( season) 2025 08/30/2021, 01/02/2021, 12/02/2020 Influenza Vaccine (#1) 2025 3, 05/05/2022, 06/25/2021, Additional history exists Pneumococcal Vaccine: [...] needed related to ulceration/compr omised skin integrity. Navya Caal RN Additional Health Concerns Active Problems Noted Date Diagnosed Date Impaired Tissue 09/26/2024 Education needed on impact of smoking on wound 0 09/26/2024 Education needed related to ulceration/compromised skin integrity. 09/26/2024 Insurance [facility] MEDICARE Member Subscriber Plan / Payer (Ef fective 2019-Present) Name:OCTAVIO HARRISONLIE Relation to Subscriber:Self Name:Kwesi, Shruthi Payer ID:[id number] Group ID:[id number] Type:Not on file Address: [place] [address] [place] [id number] Care Teams Scheduling Specialist Relationship Specialty Start Date End Date Dallas José DO [address] [place] [phone] PCP - General Family Medicine 09/26/24
[2025-07-21 22:10] LABS: Alanine Aminotransferase 16 U/L (0-31); Albumin Level 3.9 g/dL (3.5-5.0); Alkaline Phosphatase 102 U/L (39-117); Anion Gap 12 (12-20); Aspartate Amino Transferase 27 U/L (5-31); Blood Urea Nitrogen 13 mg/dL (9-16); Calcium 9.2 mg/dL (8.4-10.2); Carbon Dioxide 27 mmol/L (22-29); Chloride 104 mmol/L (96-108); Creatinine Clr Calc Pharmacy 96.3; Estimated Glomerular Filt Rate > 60; Magnesium 1.9 mg/dL (1.6-2.6); Potassium 3.4 mmol/L (3.3-5.1); Sodium 140 mmol/L (135-145); Total Protein 7.8 g/dL (6.5-8.0)
[2025-07-21] MEDS: Lactated Ringers 1,000 ML 999 ML IV (22:12)
[2025-07-21 22:14] LABS: INTERNATIONAL NORM RATIO 2.0 (0.9-1.1); Prothrombin Time 23.9 SEC (11.2-13.5)
[2025-07-21 22:17] LABS: NT Pro B Type Natriuretic Pept 1627.1 pg/mL (<300); Troponin-I High Sensitivity 4.7 ng/L (<3.5-17.0)
[2025-07-21 22:32] LABS: Resp Syncy Virus RNA Qual PCR NEGATIVE (Negative); SARS COV2 PCR INHOUSE NEGATIVE (Negative)
[2025-07-21] MEDS: vancomycin/NS 2,000 MG/500 ML PLAST..BAG 250 MG IV (22:32)
--- NOTE | 2025-07-21 22:45 | PC.NURSE ---
abx delayed d/t needing 2nd BC, difficult stick, staff pulled into emergency situation with another patient.
[2025-07-21 22:47] VITALS: PULSE 123; RESP 20; O2SAT 91
[2025-07-21 23:33] VITALS: BP 101/64; PULSE 114; RESP 20; TEMP 36.6; O2SAT 97
[2025-07-21 23:38] VITALS: BP 101/60; PULSE 99; RESP 22; TEMP 36.7; O2SAT 95
[2025-07-22] MEDS: Lactated Ringers 1,000 ML 999 ML IV (01:16)
[2025-07-22 01:45] VITALS: BP 111/69; PULSE 112; RESP 19; O2SAT 93
--- NOTE | 2025-07-22 02:08 | PM.IMHP ---
History of Present Illness Date of Service: 07/22/25 Attending physician on admission: Pema Lowery Chief Complaint: R knee pain Patient is a 59-year-old female with past medical history COPD on O2 at night, TAMI on CPAP, tobacco dependence, Deprression/ Anxiety, bilateral knee replacements, NIDDM, HTN, HLD, AFIB on Xaralto w hx of multiple CV and ablations, obesity, OA, fibromyalgia, history of gastric banding, bipolar depression, PTSD, urinary incontinence, DVT left lower extremity, PVD, lymphedema, HFpEF, Chronic back pain with spine stimulator, was BIBA fro wrosening R knee pain and redness and a patch of feeling bad . Patient denies any recent falls involving the right knee. Patient states she uses a cane versus walker at home because her apartment is very small. Patient states she has had cellulitis in the right knee in the past. Previously patient had been on penicillin daily for preventative reasons and this was stopped by her new PCP. Patient did not have a fever on arrival but was tachycardic with AFib in the 140s. Patient also found to be hypoxic and required oxygen via nasal cannula. Eventually patient received IV Lopressor with good effect and heart rate is now90s to low 100s. Sepsis protocol was activated in the ED, lactic acid 1.6, no leukocytosis and no obvious anemia. Electrolytes stable, magnesium 1.9. Glucose 116. Renal function at baseline with a GFR greater than 60 and a creatinine clearance of 96.3. BNP 1627, with a history of heart failure, preserved EF and mild aortic and mitral valve regurgitation. Elevated BNP could be based on demand secondary to higher heart rates initially on arrival. Troponins flat. EKG without ischemic changes. UA negative for UTI. Right knee x-ray pending. Patient is started on vanco and Zosyn for the right knee. Chest x-ray negative for acute findings. Patient negative for COVID, RSV and flu. Patient describes her patch of feeling bad not so much as depression but feeling frustrated by loneliness, and dealing with her chronic health problems. Patient denies any suicidal ideations, homicidal ideations or hallucinations. Patient is followed by a therapist via phone and does have a psychiatrist. Patient being admitted for right knee cellulitis suspected and AFib RVR. Patient coming in with heart rate now controlled. Review of Systems Review of Systems: Patient denies chest pain, shortness breath at rest is reporting right knee pain and currently wearing her fentanyl patch which is due for change 07/22/2025 once med rec is completed. Patient denies any problems with her spinal stimulator. Patient denies any abdominal pain, nausea, vomiting, constipation or diarrhea. Patient has chronic peripheral vascular disease with chronic color changes to the lower extremities and sometimes we will weep fluid as she has been told she has lymphedema with no active treatment in place. Patient denies any other open wounds. Yes all other systems are reviewed and are negative [facility] Medical History Chronic lung disease Right heart failure Atrial flutter History of cardioversion Leg edema Chronic respiratory failure requiring treatment with nocturnal BPAP by mask Morbid obesity Diabetes HLD (hyperlipidemia) HTN (hypertension) DVT of axillary vein, acute Arthritis Scoliosis Disc disorder of cervical region Disc disorder of lumbar region COPD (chronic obstructive pulmonary disease) Cognitive capacity: Alert and orientated x3 Functional capacity: uses cane/walker Patient : No Family History Father Stroke Other Diabetes Surgical History History of prolapse of bladder Hx of abdominoplasty History of partial hysterectomy Hx of esophagogastroduodenoscopy Hx of gastric bypass Status post knee replacement Previous back surgery Social History Household Members: Family Household Members Other:: daughter Housing: Apartment Do you presently have visiting nurse or other home services: Yes Unable to assess alcohol history related to: Unable to respond Alcohol intake: never Comment: PT REFUSING ALL SAFTEY AND FALL PRECAUTIONS Patient Tobacco Use Status: Current everyday Tobacco user Tobacco use type: Cigarette Cigarette Packs Per Day: 1.5 Cigarettes Per Day: 30 Years Smoked: 40 +/- Smoked in Last 30 Days: Yes Second Hand Smoke Exposure: No Use of substances other than those prescribed or required for medical reasons: No Advance Directives: Yes Advance Directives on File: Yes Advance Directives Date on File: 11/24/21 Do you have a plan to hurt others: No Plan Nutrition Risks: Difficulty swallowing Patient : No service: No Ebola Risk: Travel/Contact With Anyone From Affected Area/s: No Has Patient Experienced Ebola Symptoms: No Meds Allergies Allergy/AdvReac Type Severity Reaction Status Date / Time adhesive Allergy Rash Verified 07/21/25 21:31 Active Medications: Current Medications Lactated Ringer's (Lr) 1,000 mls @ 999 mls/hr IV .Q1H1M MONSERRAT Stop: 07/22/25 02:15 Last Admin: 07/22/25 01:16 Dose: 999 mls/hr Home Medications ?Medication ?Instructions ?Recorded ?Confirmed ?Last Taken ?Type albuterol sulfate 90 mcg/actuation 2 puff inhalation Q6H PRN 11/24/21 12/14/24 03/21/23 History aerosol inhaler Respiratory Distress duloxetine 60 mg capsule,delayed 60 mg PO DAILY 11/24/21 12/14/24 12/01/24 History release ropinirole 0.5 mg tablet 0.5 mg PO TID 05/01/22 12/14/24 12/01/24 History lamotrigine 200 mg tablet 200 mg PO BEDTIME 02/05/23 12/14/24 11/30/24 History lamotrigine 25 mg tablet 50 mg PO DAILY 02/05/23 12/14/24 12/01/24 History fentanyl 75 mcg/hr transdermal 1 patch topical Q3D 11/27/24 12/14/24 12/01/24 History patch fluticasone fur. 100 mcg-umeclid 1 ea inhalation DAILY 11/27/24 12/14/24 12/01/24 History 62.5 mcg-vilant 25 mcg inhalat.powder (Trelegy Ellipta) gabapentin 100 mg capsule 100 mg PO TID 11/27/24 12/14/24 12/01/24 History metformin 500 mg tablet 500 mg PO BID 11/27/24 12/14/24 12/01/24 History acetaminophen 325 mg tablet 650 mg PO BID PRN Pain 12/01/24 12/14/24 Unknown History clonidine HCl 0.1 mg tablet 0.1 mg PO DAILY PRN Anxiety 12/01/24 12/14/24 Unknown History ipratropium 0.5 mg-albuterol 3 mg 3 ml inhalation Q4H PRN Shortness 12/01/24 12/14/24 Unknown History (2.5 mg base)/3 mL nebulization Of Breath Or Wheezing soln duloxetine 40 mg capsule,delayed 40 mg PO BEDTIME 12/14/24 12/14/24 Unknown History release sprinkle Physical Exam Vital Signs and Narrative: Vital Signs: Last Vital Signs Temp 98.0 F 07/21/25 23:38 Pulse 112 H 07/22/25 01:45 Resp 19 07/22/25 01:45 BP 111/69 07/22/25 01:45 Pulse Ox 93 07/22/25 01:45 O2 Del Method Nasal Cannula 07/22/25 01:45 O2 Flow Rate 2 07/22/25 01:45 BMI result Body Mass Index 42.9 Alert and orientated X3, able to give good history. Pleasant and cooperative with care Neuro: CN II-X11 intact, no deficits, visual acuity intact EYES: PERRLA, EOM intact, sclerae nonicteric, conjunctiva pink ENT: hearing intact, no issues with swallowing, uvula midline, lips moist, nares patent no epistaxis Cardiac: S1 S2 irregular rate 98, no murmur, no JVD, mild nonpitting edema in Lower ext Pulmonary: lungs diminished bilaterally, no adventitious sounds Abdominal: BS active in all 4 quadrants, no guarding, tenderness, rebounding MSK: strength 4/5 upper and lower extremities : no CVA tenderness no bladder distension Extremities: mild edema in lower extremities, PT and DP pulses palpable +2, chronic color changes in lower extremities Psych: mood stable, judgement and insight good patient reports feeling overwhelmed at times Skin: 4 in vertical area of redness along the right knee closed incision from previous knee replacement, no blistering noted. There is warmth to the touch and pain with range of motion. Results Labs 07/21/25 21:44 07/21/25 21:44 Labs: Laboratory Results - last 24 hr 07/21/25 21:44 MCV 85.3 MCH 26.5 L MCHC 31.0 RDW 17.8 H Plt Count 221 MPV 9.4 Immature Gran % (Auto) 0.3 Neut % (Auto) 63.2 Lymph % (Auto) 25.4 [place] % (Auto) 8.6 Eos % (Auto) 2.0 Baso % (Auto) 0.5 Lymph # (Auto) 1.9 [place] # (Auto) 0.6 Eos # (Auto) 0.2 Baso # (Auto) 0.0 Abs Immat Gran (auto) 0.02 Absolute Neuts (auto) 4.7 Absolute Nucleated RBC 0.000 Nucleated RBC % (auto) 0.0 Hold Purple Top SEE NOTE PT 23.9 H INR 2.0 H Anion Gap 12 Estim Creat Clear Calc 96.3 Estimated GFR > 60 Random Glucose 116 H Lactic Acid 1.6 Calcium 9.2 Magnesium 1.9 Total Bilirubin 0.7 AST 27 ALT 16 Alkaline Phosphatase 102 Troponin I High Sens 4.7 NT-Pro-B Natriuret Pep 1627.1 H Total Protein 7.8 Albumin 3.9 Ethyl Alcohol < 10 Influenza Type A (PCR) NEGATIVE Influenza Type B (PCR) NEGATIVE RSV RNA Qual (PCR) NEGATIVE SARS-CoV-2 RNA (RT-PCR) NEGATIVE ECG Attestation: I personally reviewed and interpreted this ECG as follows: (Initially AFib RVR) Prior ECG tracings: available for review Imaging Radiologist's Impressions: Chest x-ray No acute findings Assessment and Plan (1) Cellulitis: Qualifiers: Laterality: right Site of cellulitis: extremity Site of cellulitis of extremity: lower extremity Qualified Code(s): L03.115 - Cellulitis of right lower limb Status: Acute (2) Atrial fibrillation with rapid ventricular response: Status: Acute Plan Patient is a 59-year-old female with past medical history COPD on O2 at night, TAMI on CPAP, tobacco dependence, Deprression/ Anxiety, bilateral knee replacements, NIDDM, HTN, HLD, AFIB on Xaralto w hx of multiple CV and ablations, obesity, OA, fibromyalgia, history of gastric banding, bipolar depression, PTSD, urinary incontinence, DVT left lower extremity, PVD, lymphedema, HFpEF, Chronic back pain with spine stimulator, was BIBA fro wrosening R knee pain and redness and a patch of feeling bad . ED did start the sepsis protocol for noted AFib RVR/ Tachycardia, with hypoxia. Sepsis Likely secondary to right knee cellulitis Patient arrived with tachycardia in AFib RVR with hypoxia Patient afebrile on arrival Patient did receive fluid resuscitation per sepsis protocol O2 via NC Patient is started on vanco and Zosyn Blood cultures pending, chest x-ray negative for acute findings, UA negative for UTI R knee cellulitis/ effusion Right knee x-ray confirms effusion, will consult orthopedics Patient is started on vanco and Zosyn Blood cultures pending We will need to consider orthopedics consult if effusion is present PT eval closer to discharge AFib RVR After 5 mg of Lopressor IV heart rate is better controlled Continue Xarelto MG 1.9, TSH pending Telemetry Continue home meds once med rec is completed Patient normally on diltiazem po HFpEF BNP elevated likely from demand from AFIB RVR on arrival HR is improved Last echo 03/15/2025: EF 65-70%, mild AR and MVR Hold off repeating ECHO for now Daily weights, measure I/O, Fluid allowance 1500 mls, cardiac low Na diet COPD/ TAMI/ tobacco dependence Patient uses oxygen routinely at night, 1 L nasal cannula attached to CPAP for TAMI CPAP ordered for HS Duo nebs p.r.n. Incentive spirometer Nicotine patch 21 mcg order daily Patient has recently started Wellbutrin for smoking cessation, currently smokes 1.5 packs per day Patient counseled on the risks versus benefits associated with continued smoking NIDDM SSI Diabetic diet Hold metformin Bipolar/PTSD/anxiety Patient denies any SI, HI or hallucinations States she is going through a bad patch but is not depressed Patient requesting consult with Psychiatry for review Patient does have a therapist in the outpatient setting along with a psychiatrist Patient does not require a section 12 or 1-1 Once med rec completed patient will continue home medications to include lamotrignine, clonidine, duloxetine - QTc corrected stable Chronic back pain, Fibromyalgia Pt has spine stimulator and fentnayl patch Q72 hours Continue Duloxetine DVT prophylaxis: Xarelto Med rec pending DNR DNI Patient requires at least 2 midnight stay for close hemodynamic/telemetry monitoring and IV antibiotics for right knee cellulitis. Patient will also require psychiatric consult for ongoing mental health issues. Quality Stroke Does the patient have a stroke diagnosis?: No Reason for No Anti-thrombotic by Day Two: N/A - Med Ordered VTE Prior VTE?: No VTE Risk Level:: Medical - moderate - high VTE Device Contraindication: Treatment Not Tolerated VTE Drug Contraindication: N/A - Med Ordered
[2025-07-22 03:07] LABS: Appearance Urine Hazy; Glucose Urine UA Negative (Negative); PH 6.0 (5.0-9.0); Specific Gravity - Urine >= 1.030 (1.005-1.025); UMIC TRIGGER UACC YES
[2025-07-22 03:27] LABS: UACC Culture Trigger YES
[2025-07-22] MEDS: Lactated Ringers 1,000 ML 100 ML IVCONT (03:44)
[2025-07-22 04:52] LABS: Hematocrit 40.3 % (37.0-47.0); Hemoglobin 12.3 g/dl (12.0-16.0); Imm Gran Abs Auto 0.02 X10*3/uL (0.00-0.03); Imm Gran Pct Auto 0.3 % (0.0-0.4); Lymphocytes Absolute Auto 1.7 X10*3/uL (1.2-4.9); MANUAL DIFF FLAG NO; Mean Corpuscular HGB Conc 30.5 g/dl (31.0-35.0); Mean Corpuscular Hemoglobin 26.3 pg (27.0-33.0); Mean Corpuscular Volume 86.3 fL (80.0-98.0); NRBC Abs Auto 0.000 X10*3/uL (0.0-0.012); NRBC Pct Auto 0.0 /100WBC (0.0-0.2); Platelet Count 208 X10*3/uL (160-400); Red Blood Count 4.67 X10*6/uL (4.20-5.50); White Blood Count 6.2 X10*3/uL (4.8-10.8)
[2025-07-22 05:09] LABS: Alanine Aminotransferase 12 U/L (0-31); Albumin Level 3.5 g/dL (3.5-5.0); Alkaline Phosphatase 92 U/L (39-117); Anion Gap 10 (12-20); Aspartate Amino Transferase 20 U/L (5-31); Blood Urea Nitrogen 11 mg/dL (9-16); Calcium 8.4 mg/dL (8.4-10.2); Carbon Dioxide 29 mmol/L (22-29); Chloride 106 mmol/L (96-108); Creatinine Clr Calc Pharmacy 101.8; Estimated Glomerular Filt Rate > 60; Potassium 4.3 mmol/L (3.3-5.1); Sodium 141 mmol/L (135-145); Total Protein 6.9 g/dL (6.5-8.0)
[2025-07-22 07:27] LABS: Glucose, Whole Blood 93 mg/dL (60-115)
--- NOTE | 2025-07-22 08:00 | PHA.PROG ---
Admission Date/Time: July 22, 2025 02:06 Indication:SSSI Weight in k.9 kg Serum Creatinine - Last 168 Hours 07/21/25 07/22/25 21:44 04:35 Creatinine 0.73 0.69 Estimated CrCl and GFR - Last 168 Hours 07/21/25 07/22/25 21:44 04:35 Estim Creat Clear Calc 96.3 101.8 Estimated GFR > 60 > 60 Vancomycin Loading Dose: 2,000MG Current Vancomycin Dosing Regimen: 1,000MG Q12H Vancomycin Monitoring using AUC goal of 400 - 600 range with trough as surrogate marker: 527, 15.5 Date and Time for next Vancomycin Level to be drawn: 07/23 @ 0800 Pharmacist Comments on Vancomycin Plan: Vancomycin dosing will take advantage of [employer] as a clinical decision support tool that uses Bayesian modeling to calculate individual patient's pharmacokinetic parameters and forecast the patient's drug concentration time course with the target goal AUC 24 range of 400 - 600 mg/L/hr.
--- NOTE | 2025-07-22 08:07 | PM.CNOR ---
History of Present Illness HPI Consult date: 07/22/25 Chief complaint: LE Cellulitis, AFIB RVR Narrative: Patient is a 59-year-old female with past medical history AFib, COPD, right-sided heart failure, and diabetes who was sent to the hospital for right lower extremity redness, pain, as well as AFib with RVR Of note, the patient does have a history of cellulitis of the left lower extremity, however the patient states that this episode is more painful than any previous episodes on the left Patient is resting comfortably in bed this morning Reports that pain is fairly well managed at this time, however she does still experience pain with motion of the knee, however the patient reports that this pain is primarily in the lateral aspect of the right thigh, with some pain superior to the superior pole of the patella No acute events overnight No other acute complaints or concerns at this time. [facility] Past Medical History Medical History Chronic lung disease Right heart failure Atrial flutter History of cardioversion Leg edema Chronic respiratory failure requiring treatment with nocturnal BPAP by mask Morbid obesity Diabetes HLD (hyperlipidemia) HTN (hypertension) DVT of axillary vein, acute Arthritis Scoliosis Disc disorder of cervical region Disc disorder of lumbar region COPD (chronic obstructive pulmonary disease) Family History Family History Father Stroke Other Diabetes Surgical History Surgical History History of prolapse of bladder Hx of abdominoplasty History of partial hysterectomy Hx of esophagogastroduodenoscopy Hx of gastric bypass Status post knee replacement Previous back surgery Social History Social History Household Members: Family Household Members Other:: daughter Housing: Apartment Do you presently have visiting nurse or other home services: Yes Unable to assess alcohol history related to: Unable to respond Alcohol intake: never Comment: PT REFUSING ALL SAFTEY AND FALL PRECAUTIONS Patient Tobacco Use Status: Current everyday Tobacco user Tobacco use type: Cigarette Cigarette Packs Per Day: 1.5 Cigarettes Per Day: 30 Years Smoked: 40 +/- Smoked in Last 30 Days: Yes Second Hand Smoke Exposure: No Use of substances other than those prescribed or required for medical reasons: No Advance Directives: Yes Advance Directives on File: Yes Advance Directives Date on File: 11/24/21 Do you have a plan to hurt others: No Plan Nutrition Risks: Difficulty swallowing Patient : No service: No Travel History Ebola Risk: Travel/Contact With Anyone From Affected Area/s: No Has Patient Experienced Ebola Symptoms: No Meds Allergies Allergy/AdvReac Type Severity Reaction Status Date / Time adhesive Allergy Rash Verified 07/21/25 21:31 Active Medications: Current Medications Acetaminophen (Acetaminophen 325 Mg Tablet) 650 mg PO Q6H PRN PRN Reason: Pain, Mild 1-3,fever,headache Albuterol/Ipratropium (Albuterol/Iprat 2.5/0.5mg 3 Ml Ampul.Neb) 3 ml INHALE Q4H PRN PRN Reason: Shortness of Breath/Wheezing Calcium Carbonate (Calcium Carbonate 750 Mg Tab.Chew) 750 mg PO Q4H PRN PRN Reason: Heartburn Dextrose (Dextrose 50 % 25 Gm/50 Ml Syringe) 25 gm IVPUSH Q15M PRN; Protocol PRN Reason: per Hypoglycemia Standing Ord. Glucose (Glucose Gel 15 Gm Gel..Gram.) 15 gm PO Q15M PRN; Protocol PRN Reason: per Hypoglycemia Standing Ord. Lactated Ringer's (Lr) 1,000 mls @ 100 mls/hr IVCONT .Q10H [facility] Stop: 07/22/25 12:14 Last Admin: 07/22/25 03:44 Dose: 100 mls/hr Piperacillin Sod/Tazobactam (Sod 3.375 gm/ Sodium Chloride) 50 mls @ 100 mls/hr IV Q6H [facility] Last Infusion: 07/22/25 04:22 Dose: Infused Vancomycin HCl 1,000 mg/ (Sodium Chloride) 270 mls @ 270 mls/hr IV Q12H [facility] Insulin Human Lispro (Insulin Lispro 100 Unit/Ml 3 Ml Vial) 0 unit SUBCUT QIDACHS [facility]; Protocol Last Admin: 07/22/25 07:32 Dose: Not Given Magnesium Hydroxide (Milk Of Magnesia 30 Ml Oral.Susp) 30 ml PO DAILY PRN PRN Reason: Constipation Melatonin (Melatonin 3 Mg Tablet) 6 mg PO BEDTIME PRN PRN Reason: Insomnia Nicotine (Nicotine 21 Mg Patch.Td24) 21 mg TRANSDERMA DAILY [facility] Ondansetron HCl (Ondansetron Hcl 4 Mg/2 Ml Vial) 4 mg IVPUSH Q8H PRN PRN Reason: Nausea and Vomiting Pharmacy Consult (Consult Rx Vancomycin Dosing) 1 each MISCELLANE DAILY PRN PRN Reason: Consult order Polyethylene Glycol (Polyethylene Glycol 3350 17 Gm Powd.Pack) 17 gm PO DAILY PRN PRN Reason: Constipation Senna (Sennosides 8.6 Mg Tablet) 17.2 mg PO BEDTIME MONSERRAT Sodium Chloride (0.9 % Sodium Chloride Flush 3 Ml Syringe) 3 ml IVFLUSH QSHIFT [facility] Home Medications ?Medication ?Instructions ?Recorded ?Confirmed ?Last Taken ?Type albuterol sulfate 90 mcg/actuation 2 puff inhalation Q6H PRN 11/24/21 07/22/25 03/21/23 History aerosol inhaler Respiratory Distress duloxetine 60 mg capsule,delayed 60 mg PO DAILY 11/24/21 07/22/25 07/21/25 History release ropinirole 0.5 mg tablet 0.5 mg PO TID 05/01/22 07/22/25 07/14/25 History lamotrigine 200 mg tablet 200 mg PO BEDTIME 02/05/23 07/22/25 11/30/24 History lamotrigine 25 mg tablet 50 mg PO DAILY 02/05/23 07/22/25 07/21/25 History fentanyl 75 mcg/hr transdermal 1 patch topical Q3D 11/27/24 07/22/25 12/01/24 History patch fluticasone fur. 100 mcg-umeclid 1 ea inhalation DAILY 11/27/24 07/22/25 07/21/25 History 62.5 mcg-vilant 25 mcg inhalat.powder (Trelegy Ellipta) gabapentin 100 mg capsule 100 mg PO TID 11/27/24 07/22/25 07/21/25 History metformin 500 mg tablet 500 mg PO BID 11/27/24 07/22/25 07/21/25 History acetaminophen 325 mg tablet 650 mg PO BID PRN Pain 12/01/24 07/22/25 Unknown History clonidine HCl 0.1 mg tablet 0.1 mg PO DAILY PRN Anxiety 12/01/24 07/22/25 Unknown History ipratropium 0.5 mg-albuterol 3 mg 3 ml inhalation Q4H PRN Shortness 12/01/24 07/22/25 Unknown History (2.5 mg base)/3 mL nebulization Of Breath Or Wheezing soln duloxetine 40 mg capsule,delayed 40 mg PO BEDTIME 12/14/24 07/22/25 Unknown History release sprinkle bupropion HCl 150 mg tablet,12 hr 150 mg PO BID 07/22/25 07/22/25 07/21/25 History sustained-release nicotine 21 mg/24 hr daily 1 patch transdermal DAILY 07/22/25 07/22/25 07/21/25 History transdermal patch Physical Exam Vital Signs: Vital Signs: Last Vital Signs Temp 98.0 F 07/21/25 23:38 Pulse 112 H 07/22/25 01:45 Resp 19 07/22/25 01:45 BP 111/69 07/22/25 01:45 Pulse Ox 93 07/22/25 01:45 O2 Del Method Nasal Cannula 07/22/25 01:45 O2 Flow Rate 2 07/22/25 01:45 BMI result Body Mass Index 42.9 Extrem: Other: On inspection, there is no visible deformity of the right knee There is some mild erythema noted proximal to the proximal pole of the patella that appears to have shrunk from previously delineated margins, in the most proximal aspect of previous incision site from TKA No lacerations, abrasions, open areas Patient reports mild tenderness to palpation of this area of redness in the most proximal aspect of the incision site superior to the patella Patient does report significant tenderness to palpation of the lateral aspect of the right thigh, much worse than tenderness around knee Patient is able to extend the left knee to 0 degrees and flex to approximately 100 degrees with discomfort in the lateral thigh, not much discomfort in the knee No pain with axial loading of the right knee Patient is able to ambulate with discomfort Distal sensation intact Capillary refill brisk Results Labs 07/22/25 04:35 07/22/25 04:35 Labs: Abnormal lab results 07/21/25 07/22/25 07/22/25 Range/Units 21:44 03:01 04:35 MCH 26.5 L 26.3 L (27.0-33.0) pg MCHC 30.5 L (31.0-35.0) g/dl RDW 17.8 H 17.9 H (11.0-16.0) % [place] % (Auto) 12.9 H (2-11) % PT 23.9 H (11.2-13.5) SEC INR 2.0 H (0.9-1.1) Anion Gap 10 L (12-20) Random Glucose 116 H (60-115) mg/dL NT-Pro-B Natriuret Pep 1627.1 H (<300) pg/mL Ur Specific [place] >= 1.030 H (1.005-1.025) Urine WBC 6-10 H (0-5) /HPF H & H 07/21/25 07/22/25 Range/Units 21:44 04:35 Hgb 13.1 12.3 (12.0-16.0) g/dl Hct 42.2 40.3 (37.0-47.0) % Coagulation 07/21/25 Range/Units 21:44 INR 2.0 H (0.9-1.1) All other labs normal. Diagnostic results Knee x-ray: report reviewed and image reviewed (X-rays obtained in the office today and independently reviewed by me, Jarad Sutton PA-C, demonstrate stable prosthesis of right knee with joint effusion. ) Assessment and Plan (1) Cellulitis: Qualifiers: Site of cellulitis: extremity Site of cellulitis of extremity: lower extremity Laterality: right Qualified Code(s): L03.115 - Cellulitis of right lower limb Status: Acute (2) History of total right knee replacement: Status: Acute Plan 1. Cellulitis of right lower extremity Case was discussed with Dr. Wilkinson, and a collaborative treatment plan was formed: At this time, after discussion with Dr. Wilkinson, the patient's symptoms and lack of range of motion limitations are not consistent with septic total knee arthroplasty at this time, given the fact that the patient is able to flex to 100 degrees and extend fully with minimal difficulty Given this, Dr. Wilkinson does not feel that aspiration is necessary at this time The patient's primary source of pain is also not located in or around the knee joint, rather in the lateral aspect of the right thigh However, there was a joint effusion noted on x-ray, and we will continue to monitor the patient's symptoms and determine need for further treatment based on these If further intervention is deemed necessary, we will also reach out to Dr. Cam at [facility] to determine what he feels is the most appropriate course of action, as he is the surgeon who performed the patient's total knee arthroplasty Continue IV antibiotics Continue pain management Weight-bearing and range of motion of the right knee as tolerated Patient understands this and is amenable to this plan Procedures Date of Service Date of Service: 07/22/25
--- NOTE | 2025-07-22 08:08 | PHA.MEDREC ---
Pharmacy Consult ? Medication Reconciliation Pharmacy has completed the medication reconciliation.Med rec complete, spoke to patient and compared with pharmacy claims history
[2025-07-22 09:21] VITALS: BP 120/75; PULSE 98; RESP 18; O2SAT 93
[2025-07-22 10:43] VITALS: TEMP 37.3
--- NOTE | 2025-07-22 12:48 | P.DS_ITS ---
DS: Providers Provider Date of admission: 07/22/25 02:06 Date of discharge: 07/22/25 Primary care physician: Unknown Physician Consults: 07/22/25 03:40 Consult to Psychiatry Routine Consulting Provider: [facility] Psych Covering Reason for consultation: bad patch re: current mental health stressors, req consult Has provider been notified: No 07/22/25 04:55 Consult to Orthopedics Routine Consulting Provider: [facility] Orthopedic Surgeons Reason for consultation: R knee effusion Has provider been notified: No DS: Diagnosis Discharge Diagnosis (1) Cellulitis: Status: Acute (2) History of total right knee replacement: Status: Acute DS: Summary Hospital Course Hospital Course: The patient is a 59-year-old female with a complex medical history including at rial fibrillation on anticoagulation, COPD, diabetes, obesity, and prior right total knee arthroplasty who presented with right knee redness and pain as well as atrial fibrillation with rapid ventricular response. On admission, she was tachycardic and mildly hypoxic. Sepsis protocol was initiated in the ED, and she received IV fluids, vancomycin, and piperacillin?tazobactam. Heart rate improved following IV beta-denilson therapy, and she remained hemodynamically stable thereafter. Orthopedic consultation was obtained. Imaging demonstrated an intact right total knee arthroplasty with a joint effusion but no fracture or hardware complication. Clinical examination and preserved range of motion were not consistent with septic arthritis, and joint aspiration was not recommended. On day of discharge, the patient is?hemodynamically stable?with a?completely benign knee exam?aside from mild anterior erythema over the patella. There is?no palpable effusion,?normal range of motion, and?no pain with axial loading. Her primary pain is reproducible with direct palpation along the?right lateral [id number] thigh extending toward the fibular head, consistent with?IT band syndrome, rather than intra-articular pathology. Given clinical improvement and low concern for deep joint infection, IV antibiotics were discontinued and the patient is appropriate for discharge with oral therapy. Status at Discharge Cognitive/behavioral status at discharge: A&O x4 Functional status at discharge: independent ambulation Overall status at discharge: patient is back to baseline Time Attestation Total time managing care of this patient today: 45 mintues. Discharge Coordination Time (in mins): 45 Quality: Safe Use of Opioids Does Pt have an Active Cancer Diagnosis on the Problem List?: No Quality: Stroke Does the patient have a stroke diagnosis?: No Physical Exam Exam: Exam: General:?Awake, alert, no acute distress Cardiac:?Irregularly irregular rhythm, rate controlled Pulmonary:?Clear to auscultation bilaterally Right Knee: * Mild anterior erythema over patella * No palpable effusion * No warmth * Full range of motion * No pain with axial loading Musculoskeletal: * Focal tenderness along right lateral thigh and distal IT band insertion near fibular head Neurovascular:?Distal sensation intact, brisk capillary refill Vital Signs: Vital Signs: Last Vital Signs Temp 99.1 F 07/22/25 10:43 Pulse 98 07/22/25 09:21 Resp 18 07/22/25 09:21 BP 120/75 07/22/25 09:21 Pulse Ox 93 07/22/25 09:21 O2 Del Method Nasal Cannula 07/22/25 09:21 O2 Flow Rate 2 07/22/25 09:21 BMI result Body Mass Index 42.9 DS: Data Data Completed and Pending Completed studies during hospitalization [Text1]: Procedures Assistance with Respiratory Ventilation, Less than 24 Consecutive Hours, Continuous Positive Airway Pressure (02/06/23) [facility] of Cardiac Rhythm, Single (02/06/23) Ultrasonography of Heart with Aorta, Transesophageal (02/06/23) Labs on day of discharge: Laboratory Results - last 24 hr 07/21/25 07/22/25 07/22/25 21:44 03:01 04:35 WBC 7.4 6.2 RBC 4.95 4.67 Hgb 13.1 12.3 Hct 42.2 40.3 MCV 85.3 86.3 MCH 26.5 L 26.3 L MCHC 31.0 30.5 L RDW 17.8 H 17.9 H Plt Count 221 208 MPV 9.4 9.6 Immature Gran % (Auto) 0.3 0.3 Neut % (Auto) 63.2 56.6 Lymph % (Auto) 25.4 27.7 [place] % (Auto) 8.6 12.9 H Eos % (Auto) 2.0 1.9 Baso % (Auto) 0.5 0.6 Lymph # (Auto) 1.9 1.7 [place] # (Auto) 0.6 0.8 Eos # (Auto) 0.2 0.1 Baso # (Auto) 0.0 0.0 Abs Immat Gran (auto) 0.02 0.02 Absolute Neuts (auto) 4.7 3.5 Absolute Nucleated RBC 0.000 0.000 Nucleated RBC % (auto) 0.0 0.0 Hold Purple Top SEE NOTE PT 23.9 H INR 2.0 H Sodium 140 141 Potassium 3.4 4.3 D Chloride 104 106 Carbon Dioxide 27 29 Anion Gap 12 10 L BUN 13 11 Creatinine 0.73 0.69 Estim Creat Clear Calc 96.3 101.8 Estimated GFR > 60 > 60 POC Glucose Random Glucose 116 H 115 Lactic Acid 1.6 Calcium 9.2 8.4 D Magnesium 1.9 Total Bilirubin 0.7 0.5 AST 27 20 ALT 16 12 Alkaline Phosphatase 102 92 Troponin I High Sens 4.7 NT-Pro-B Natriuret Pep 1627.1 H Total Protein 7.8 6.9 Albumin 3.9 3.5 TSH 2.08 Urine Color Yellow Urine Appearance Hazy Urine pH 6.0 Ur Specific [place] >= 1.030 H Urine Protein Trace Urine Glucose (UA) Negative Urine Ketones Trace Urine Blood Trace Urine Nitrite Negative Ur Leukocyte Esterase Negative Urine RBC 0-2 Urine WBC 6-10 H Ur Squamous Epith Cells 11-20 Urine Bacteria 1+ Hyaline Casts 0-2 Ethyl Alcohol < 10 Influenza Type A (PCR) NEGATIVE Influenza Type B (PCR) NEGATIVE RSV RNA Qual (PCR) NEGATIVE SARS-CoV-2 RNA (RT-PCR) NEGATIVE 07/22/25 07:24 WBC RBC Hgb Hct MCV MCH MCHC RDW Plt Count MPV Immature Gran % (Auto) Neut % (Auto) Lymph % (Auto) [place] % (Auto) Eos % (Auto) Baso % (Auto) Lymph # (Auto) [place] # (Auto) Eos # (Auto) Baso # (Auto) Abs Immat Gran (auto) Absolute Neuts (auto) Absolute Nucleated RBC Nucleated RBC % (auto) Hold Purple Top PT INR Sodium Potassium Chloride Carbon Dioxide Anion Gap BUN Creatinine Estim Creat Clear Calc Estimated GFR POC Glucose 93 Random Glucose Lactic Acid Calcium Magnesium Total Bilirubin AST ALT Alkaline Phosphatase Troponin I High Sens NT-Pro-B Natriuret Pep Total Protein Albumin TSH Urine Color Urine Appearance Urine pH Ur Specific [place] Urine Protein Urine Glucose (UA) Urine Ketones Urine Blood Urine Nitrite Ur Leukocyte Esterase Urine RBC Urine WBC Ur Squamous Epith Cells Urine Bacteria Hyaline Casts Ethyl Alcohol Influenza Type A (PCR) Influenza Type B (PCR) RSV RNA Qual (PCR) SARS-CoV-2 RNA (RT-PCR) Discharge Plan Discharge Anticipated Discharge Date/Time: 07/22/25 12:49 Patient Disposition: Home, Self-Care Discharge Diagnosis: IT band syndrome, nonpurulent cellulitis Referrals: Physician,Unknown J [Primary Care Provider, Medical] - 1 Week Discharge Medications: New cephalexin 500 mg Capsule 500 mg PO Q12H 5 Days Qty: 10 0RF Continued loratadine 10 mg tablet 10 mg PO DAILY Qty: 90 3RF Xarelto 20 mg tablet 20 mg PO QPM Qty: 90 3RF diltiazem HCl 120 mg capsule,extended release 24hr 120 mg PO DAILY Qty: 90 3RF albuterol sulfate 90 mcg/actuation Hfa Aerosol Inhaler 2 puff INHALATION Q6H PRN (Reason: Respiratory Distress) duloxetine 60 mg Capsule,Delayed Release(Dr/Ec) 60 mg PO DAILY duloxetine 40 mg capsule, delayed rel sprinkle 40 mg PO BEDTIME lamotrigine 200 mg tablet 200 mg PO BEDTIME lamotrigine 25 mg tablet 50 mg PO DAILY metformin 500 mg tablet 500 mg PO BID gabapentin 100 mg capsule 100 mg PO TID fentanyl 75 mcg/hr patch 72 hour 1 patch topical Q3D Trelegy Ellipta 100-62.5-25 mcg blister with device 1 ea inhalation DAILY bupropion HCl 150 mg Tablet Sustained-Release 12 Hr 150 mg PO BID nicotine 21 mg/24 hr Patch 24 Hour 1 patch TRANSDERMAL DAILY ipratropium-albuterol 0.5 mg-3 mg(2.5 mg base)/3 mL solution for nebulization 3 ml INHALATION Q4H PRN (Reason: Shortness Of Breath Or Wheezing) clonidine HCl 0.1 mg tablet 0.1 mg PO DAILY PRN (Reason: Anxiety) acetaminophen 325 mg Tablet 650 mg PO BID PRN (Reason: Pain) ropinirole 0.5 mg tablet 0.5 mg PO TID Discharge Orders: Discharge Order (Routine); Ordered 07/22/25 Ordered By: Christiano Brunner Diet: Advance to usual diet Activity on Discharge: As tolerated Stand Alone Forms: Patient Portal Discharge page Print Language: [place] Care Plan Goals: as above Health Concerns: as above Plan of Treatment: as above Assessment: Haemodynamically stable without complications etiology pain secondary to IT band syndrome/ MSK pain
--- NOTE | 2025-07-22 12:48 | PC.NURSE ---
Pt refusing POC check, awaiting DC orders.
[2025-07-22 13:02] VITALS: BP 120/75; PULSE 98; RESP 16; TEMP 37.3; O2SAT 94
--- NOTE | 2025-07-23 15:58 | MHC.CM.PN ---
PT DISCHARGED HOME ON 07/22/25 PRIOR TO BEING SEEN BY CM. PT DISCHARGED WITH RESUMPTION OF HER [employer] [facility] VIA [facility]
== END 2025-07-22 13:00 | disposition home or self-care (01) | DRG 872 ==
LOC: HO.ED 07-22 02:34 → HO.EDOVER 07-22 02:48
PROVIDERS: Admitting Provider Nurse Practitioner Family; Emergency Provider Student in an Organized Health Care Education/Training Program; Visit Provider Hospitalist
DX: A41.9 Sepsis, unspecified organism (principal); L03.115 Cellulitis of right lower limb; I50.32 Chronic diastolic (congestive) heart failure; F17.210 Nicotine dependence, cigarettes, uncomplicated; I48.91 Unspecified atrial fibrillation; Z66 Do not resuscitate; Z71.6 Tobacco abuse counseling; G47.33 Obstructive sleep apnea (adult) (pediatric); M76.31 Iliotibial band syndrome, right leg; E11.9 Type 2 diabetes mellitus without complications; F31.9 Bipolar disorder, unspecified; F43.10 Post-traumatic stress disorder, unspecified; M79.7 Fibromyalgia; M54.9 Dorsalgia, unspecified; G89.29 Other chronic pain; Z20.822 Contact with and (suspected) exposure to COVID-19; Z79.01 Long term (current) use of anticoagulants; Z79.899 Other long term (current) drug therapy
CPT/HCPCS: 36415; 71045; 73562; 73564; 80053; 80307; 81001; 82947; 83605; 83735; 83880; 84443; 84484; 85025; 85610; 87040; 87086; 87637; 93005; 97162; 99285; J0616; J1885; J2543; J3373; J3374; J7120

== ENCOUNTER → 2025-07-21 21:31 | Outpatient (BNV) | payer OTHER, SELFPAY | PROVIDERS: Admitting Provider Nurse Practitioner Family; Emergency Provider Student in an Organized Health Care Education/Training Program; Visit Provider Internal Medicine Cardiovascular Disease | DX: I48.91 Unspecified atrial fibrillation (principal) | CPT/HCPCS: 93010 ==

== ENCOUNTER → 2025-07-21 22:23 | Outpatient (BNV) | payer OTHER, SELFPAY | PROVIDERS: Emergency Provider Student in an Organized Health Care Education/Training Program; Visit Provider Student in an Organized Health Care Education/Training Program | DX: R06.02 Shortness of breath (principal) | CPT/HCPCS: 71045 ==

== ENCOUNTER 2025-07-22 02:06 | Outpatient (BNV) | payer OTHER, SELFPAY | END 2025-07-22 03:23 | PROVIDERS: Admitting Provider Nurse Practitioner Family; Emergency Provider Student in an Organized Health Care Education/Training Program; Visit Provider Student in an Organized Health Care Education/Training Program | DX: M25.461 Effusion, right knee (principal); Z96.651 Presence of right artificial knee joint | CPT/HCPCS: 73564 ==

== ENCOUNTER → 2025-07-22 02:06 | Outpatient (BNV) | payer OTHER, SELFPAY | PROVIDERS: Admitting Provider Nurse Practitioner Family; Emergency Provider Student in an Organized Health Care Education/Training Program; Visit Provider Hospitalist | DX: L03.115 Cellulitis of right lower limb (principal); Z96.651 Presence of right artificial knee joint; I48.91 Unspecified atrial fibrillation | CPT/HCPCS: 99234; 99499 ==

== ENCOUNTER → 2025-07-22 02:06 | Outpatient (BNV) | payer OTHER, SELFPAY | PROVIDERS: Admitting Provider Nurse Practitioner Family; Emergency Provider Student in an Organized Health Care Education/Training Program | DX: L03.115 Cellulitis of right lower limb (principal); Z96.651 Presence of right artificial knee joint | CPT/HCPCS: 99222 ==